=== PATIENT | female | born 1955 | race Caucasian/White ===

== ENCOUNTER → 2019-11-14 04:00 | Outpatient (REF) | payer MEDICAID, SELFPAY ==
[2019-11-14 09:40] LABS: Absolute Lymphocyte Count 1.73 X10^3/uL (0.83-4.51); Absolute Neutrophil Count 5.2 X10^3/uL (2.0-7.7); Basophil# 0.07 X10^3/uL; Basophil% 0.8 % (0-1); Eosinophil# 0.32 X10^3/uL; Eosinophils% 3.9 % (0-5); Erythrocyte Sedimentation Rate 52 mm/hr (0-30); Hematocrit 31.6 % (37-47); Hemoglobin 9.4 g/dL (12.0-15.0); Lymphocyte # 1.73 X10^3/ul (4.0); Lymphocyte % 20.9 % (19-41); Mean Corp Hgb Conc 29.7 g/dL (32-36); Mean Corpuscular Hgb 30.6 pg (27.0-32.0); Mean Corpuscular Volume 102.9 fL (81-99); Mean Platelet Vol. 9.6 fl (6.2-12.0); Monocyte# 0.87 X10^3/uL; Monocyte% 10.5 % (0-10); NRBC Flagged by Analyzer 0 % (0-5); Neutrophil # 5.24 X10^3/uL (2.7-7.7); Neutrophil % 63.5 % (47-70); Platelet Count 376 K/mm3 (150-450); RBC Distribution Width CV 16.2 % (11.6-14.6); RBC Distribution Width SD 60.2 fl (35.1-43.9); Red Blood Count 3.07 M/mm3 (4.2-5.4); White Blood Count 8.3 K/mm3 (4.4-11.0)
[2019-11-14 09:53] LABS: ALB/GLOB Ratio 0.5 RATIO (0.9-2.4); AST(SGOT) 21 U/L (15-37); Alanine Aminotransfer ALT/SGPT 16 U/L (13-56); Albumin, Serum 2.3 g/dL (3.2-5.0); Alkaline Phosphatase 73 U/L (45-117); Anion Gap 9 (5-15); BUN 10 mg/dL (7-18); BUN/Creat Ratio 23.1 RATIO (10-20); Calcium,Total 8.5 mg/dL (8.5-10.1); Chloride 100 mmol/L (98-107); Creatinine, Serum 0.43 mg/dL (0.55-1.02); EST Glomerular Filtration Rate 157 mL/min (>60); Est Glom Filt Rate - Afr Amer 189 mL/min (>60); Glucose 71 mg/dL (74-106); Protein, Total 7.3 g/dL (6.4-8.2); Sodium Level 140 mmol/L (136-145)
== END ==
LOC: OLS.ACW200 04:00
PROVIDERS: Referring Provider Family Medicine; Visit Provider Family Medicine
DX: M00.861 Arthritis due to other bacteria, right knee (principal); A49.01 Methicillin susceptible Staphylococcus aureus infection, unspecified site; G35 Multiple sclerosis; M17.11 Unilateral primary osteoarthritis, right knee; M62.81 Muscle weakness (generalized); R27.9 Unspecified lack of coordination; R26.89 Other abnormalities of gait and mobility; F41.9 Anxiety disorder, unspecified; F32.9 Major depressive disorder, single episode, unspecified; J18.9 Pneumonia, unspecified organism; I10 Essential (primary) hypertension; K21.9 Gastro-esophageal reflux disease without esophagitis; I82.401 Acute embolism and thrombosis of unspecified deep veins of right lower extremity; A49.02 Methicillin resistant Staphylococcus aureus infection, unspecified site; C44.91 Basal cell carcinoma of skin, unspecified; K55.9 Vascular disorder of intestine, unspecified; N39.0 Urinary tract infection, site not specified; M51.06 Intervertebral disc disorders with myelopathy, lumbar region; Z72.0 Tobacco use
CPT/HCPCS: 36415; 80053; 85025; 85652; 86140

== ENCOUNTER → 2019-11-21 04:00 | Outpatient (REF) | payer MEDICAID, SELFPAY ==
[2019-11-21 07:53] LABS: Absolute Lymphocyte Count 1.74 X10^3/uL (0.83-4.51); Absolute Neutrophil Count 5.5 X10^3/uL (2.0-7.7); Basophil# 0.08 X10^3/uL; Eosinophil# 0.21 X10^3/uL; Eosinophils% 2.5 % (0-5); Hematocrit 31.4 % (37-47); Hemoglobin 9.5 g/dL (12.0-15.0); Lymphocyte # 1.74 X10^3/ul (4.0); Lymphocyte % 20.8 % (19-41); Mean Corp Hgb Conc 30.3 g/dL (32-36); Mean Corpuscular Hgb 30.5 pg (27.0-32.0); Mean Platelet Vol. 10.1 fl (6.2-12.0); Monocyte# 0.83 X10^3/uL; Monocyte% 9.9 % (0-10); NRBC Flagged by Analyzer 0 % (0-5); Neutrophil # 5.45 X10^3/uL (2.7-7.7); Neutrophil % 65.3 % (47-70); Platelet Count 322 K/mm3 (150-450); RBC Distribution Width CV 15.3 % (11.6-14.6); Red Blood Count 3.11 M/mm3 (4.2-5.4); White Blood Count 8.4 K/mm3 (4.4-11.0)
[2019-11-21 08:01] LABS: Erythrocyte Sedimentation Rate 64 mm/hr (0-30)
[2019-11-21 08:17] LABS: ALB/GLOB Ratio 0.5 RATIO (0.9-2.4); AST(SGOT) 21 U/L (15-37); Alanine Aminotransfer ALT/SGPT 16 U/L (13-56); Albumin, Serum 2.4 g/dL (3.2-5.0); Alkaline Phosphatase 87 U/L (45-117); Anion Gap 8 (5-15); BUN 20 mg/dL (7-18); BUN/Creat Ratio 38.9 RATIO (10-20); Calcium,Total 8.7 mg/dL (8.5-10.1); Chloride 99 mmol/L (98-107); Creatinine, Serum 0.51 mg/dL (0.55-1.02); EST Glomerular Filtration Rate 128 mL/min (>60); Est Glom Filt Rate - Afr Amer 155 mL/min (>60); Glucose 83 mg/dL (74-106); Potassium 3.2 mmol/L (3.5-5.1); Protein, Total 7.4 g/dL (6.4-8.2); Sodium Level 138 mmol/L (136-145)
== END ==
LOC: OLS.ACW200 04:00
PROVIDERS: Visit Provider Family Medicine
DX: M00.861 Arthritis due to other bacteria, right knee (principal); M25.561 Pain in right knee; G35 Multiple sclerosis; G89.4 Chronic pain syndrome; I10 Essential (primary) hypertension
CPT/HCPCS: 36415; 80053; 85025; 85652; 86140

== ENCOUNTER → 2019-11-28 05:00 | Outpatient (REF) | payer MEDICAID, SELFPAY ==
[2019-11-28 08:24] LABS: Absolute Lymphocyte Count 1.47 X10^3/uL (0.83-4.51); Absolute Neutrophil Count 4.9 X10^3/uL (2.0-7.7); Basophil# 0.04 X10^3/uL; Basophil% 0.5 % (0-1); Eosinophil# 0.31 X10^3/uL; Eosinophils% 4.2 % (0-5); Hematocrit 35.4 % (37-47); Hemoglobin 10.8 g/dL (12.0-15.0); Lymphocyte # 1.47 X10^3/ul (4.0); Lymphocyte % 19.7 % (19-41); Mean Corp Hgb Conc 30.5 g/dL (32-36); Mean Corpuscular Hgb 29.8 pg (27.0-32.0); Mean Corpuscular Volume 97.8 fL (81-99); Mean Platelet Vol. 10.1 fl (6.2-12.0); Monocyte# 0.74 X10^3/uL; Monocyte% 9.9 % (0-10); NRBC Flagged by Analyzer 0 % (0-5); Neutrophil # 4.85 X10^3/uL (2.7-7.7); Platelet Count 354 K/mm3 (150-450); RBC Distribution Width CV 14.7 % (11.6-14.6); RBC Distribution Width SD 53.2 fl (35.1-43.9); Red Blood Count 3.62 M/mm3 (4.2-5.4); White Blood Count 7.5 K/mm3 (4.4-11.0)
[2019-11-28 08:37] LABS: ALB/GLOB Ratio 0.6 RATIO (0.9-2.4); AST(SGOT) 18 U/L (15-37); Alanine Aminotransfer ALT/SGPT 10 U/L (13-56); Albumin, Serum 2.7 g/dL (3.2-5.0); Alkaline Phosphatase 91 U/L (45-117); Anion Gap 8 (5-15); BUN 13 mg/dL (7-18); BUN/Creat Ratio 26.2 RATIO (10-20); Calcium,Total 8.5 mg/dL (8.5-10.1); Chloride 96 mmol/L (98-107); EST Glomerular Filtration Rate 133 mL/min (>60); Est Glom Filt Rate - Afr Amer 162 mL/min (>60); Globulin 4.9 g/dL (2.2-4.2); Glucose 88 mg/dL (74-106); Potassium 3.2 mmol/L (3.5-5.1); Protein, Total 7.6 g/dL (6.4-8.2); Sodium Level 135 mmol/L (136-145)
[2019-11-28 09:28] LABS: Erythrocyte Sedimentation Rate 51 mm/hr (0-30)
== END ==
LOC: OLS.ACW200 05:00
PROVIDERS: Visit Provider Family Medicine
DX: M00.861 Arthritis due to other bacteria, right knee (principal); M25.561 Pain in right knee; G35 Multiple sclerosis; I10 Essential (primary) hypertension
CPT/HCPCS: 36415; 80053; 85025; 85652; 86140

== ENCOUNTER → 2020-02-07 06:30 | Outpatient (REF) | payer MEDICAID, SELFPAY | LOC: OLS.ACW200 06:30 | PROVIDERS: Visit Provider Family Medicine | DX: Z11.59 Encounter for screening for other viral diseases (principal); M00.861 Arthritis due to other bacteria, right knee; M25.561 Pain in right knee; A49.01 Methicillin susceptible Staphylococcus aureus infection, unspecified site; G35 Multiple sclerosis; M17.11 Unilateral primary osteoarthritis, right knee | CPT/HCPCS: 87635; U0003 ==

== ENCOUNTER → 2020-03-16 10:23 | Outpatient (REF) | payer MEDICAID, SELFPAY | LOC: OLS.ACW200 10:23 | PROVIDERS: Visit Provider Family Medicine | DX: Z03.818 Encounter for observation for suspected exposure to other biological agents ruled out (principal) | CPT/HCPCS: 87635; U0003 ==

== ENCOUNTER → 2020-03-22 12:30 | Outpatient (REF) | payer MEDICAID, SELFPAY | LOC: OLS.ACW300 12:30 | PROVIDERS: Referring Provider Family Medicine; Visit Provider Family Medicine | DX: Z03.818 Encounter for observation for suspected exposure to other biological agents ruled out (principal) | CPT/HCPCS: 87635; U0003 ==

== ENCOUNTER → 2020-04-12 16:00 | Outpatient (REF) | payer MEDICAID, SELFPAY | LOC: OLS.ACW300 16:00 | PROVIDERS: Referring Provider Family Medicine; Visit Provider Family Medicine | DX: R30.9 Painful micturition, unspecified (principal); G35 Multiple sclerosis; R54 Age-related physical debility; R62.7 Adult failure to thrive; M62.81 Muscle weakness (generalized); R27.9 Unspecified lack of coordination; R26.89 Other abnormalities of gait and mobility | CPT/HCPCS: 87086; 87088 ==

== ENCOUNTER → 2020-04-27 05:00 | Outpatient (REF) | payer MEDICAID, SELFPAY ==
[2020-04-27 09:43] LABS: Hematocrit 37.5 % (37-47); Hemoglobin 11.7 g/dL (12.0-15.0); Mean Corp Hgb Conc 31.2 g/dL (32-36); Mean Corpuscular Hgb 27.5 pg (27.0-32.0); Mean Corpuscular Volume 88.2 fL (81-99); Mean Platelet Vol. 10.6 fl (6.2-12.0); Platelet Count 280 K/mm3 (150-450); RBC Distribution Width CV 16.6 % (11.6-14.6); RBC Distribution Width SD 53.7 fl (35.1-43.9); Red Blood Count 4.25 M/mm3 (4.2-5.4); White Blood Count 8.4 K/mm3 (4.4-11.0)
[2020-04-27 09:55] LABS: ALB/GLOB Ratio 0.7 RATIO (0.9-2.4); AST(SGOT) 16 U/L (15-37); Alanine Aminotransfer ALT/SGPT 29 U/L (13-56); Alkaline Phosphatase 129 U/L (45-117); Anion Gap 5 (5-15); BUN 18 mg/dL (7-18); Calcium,Total 8.6 mg/dL (8.5-10.1); Chloride 108 mmol/L (98-107); Creatinine, Serum 0.62 mg/dL (0.55-1.02); EST Glomerular Filtration Rate 103 mL/min (>60); Est Glom Filt Rate - Afr Amer 124 mL/min (>60); Globulin 4.5 g/dL (2.2-4.2); Glucose 76 mg/dL (74-106); Potassium 3.6 mmol/L (3.5-5.1); Protein, Total 7.5 g/dL (6.4-8.2); Sodium Level 140 mmol/L (136-145)
== END ==
LOC: OLS.ACW300 05:00
PROVIDERS: Referring Provider Family Medicine; Visit Provider Family Medicine
DX: G35 Multiple sclerosis (principal); R54 Age-related physical debility; R62.7 Adult failure to thrive; M62.81 Muscle weakness (generalized); R27.9 Unspecified lack of coordination; R26.89 Other abnormalities of gait and mobility
CPT/HCPCS: 36415; 80053; 85027

== ENCOUNTER → 2020-05-05 19:00 | Outpatient (REF) | payer MEDICAID, SELFPAY ==
[2020-05-06 08:42] LABS: Color, Urine Straw (Yellow); Glucose, Dipstick Normal (Normal); Ketone-Dipstick Negative (Negative); Leukocyte Esterase-Dipstick 500 /ul (Negative); Nitrite-Dipstick Negative (Negative); Occult Blood-Urine Negative /ul (Negative); Protein-Dipstick 30 mg/dl (Negative); Specific Gravity, Urine 1.025 (1.002-1.030); Urine Bilirubin Dipstick Negative (Negative); Urine Clarity Cloudy (Clear); Urine Urobilinogen Normal (Normal)
== END ==
LOC: OLS.ACW300 19:00
PROVIDERS: Referring Provider Family Medicine; Visit Provider Family Medicine
DX: G35 Multiple sclerosis (principal); R54 Age-related physical debility; R62.7 Adult failure to thrive; M62.81 Muscle weakness (generalized); R27.9 Unspecified lack of coordination; R26.89 Other abnormalities of gait and mobility; R41.9 Unspecified symptoms and signs involving cognitive functions and awareness
CPT/HCPCS: 81002; 87086; 87088

== ENCOUNTER → 2020-05-09 14:05 | Outpatient (REF) | payer MEDICAID, SELFPAY | LOC: OLS.ACW300 14:05 | PROVIDERS: Referring Provider Family Medicine; Visit Provider Family Medicine | DX: Z03.818 Encounter for observation for suspected exposure to other biological agents ruled out (principal) | CPT/HCPCS: 87635; U0003 ==

== ENCOUNTER → 2020-07-01 07:59 | Outpatient (REF) | payer MEDICAID, SELFPAY | LOC: OLS.ACW300 07:59 | PROVIDERS: Referring Provider Family Medicine; Visit Provider Family Medicine | DX: G35 Multiple sclerosis (principal); R54 Age-related physical debility; R62.7 Adult failure to thrive; M62.81 Muscle weakness (generalized); R27.9 Unspecified lack of coordination; R26.89 Other abnormalities of gait and mobility | CPT/HCPCS: 87086; 87088; 87186 ==

== ENCOUNTER → 2020-07-26 05:00 | Outpatient (REF) | payer MEDICAID, SELFPAY ==
[2020-07-26 07:19] LABS: Hematocrit 39.6 % (37-47); Hemoglobin 12.7 g/dL (12.0-15.0); Mean Corp Hgb Conc 32.1 g/dL (32-36); Mean Corpuscular Hgb 30.1 pg (27.0-32.0); Mean Corpuscular Volume 93.8 fL (81-99); Mean Platelet Vol. 10.1 fl (6.2-12.0); Platelet Count 232 K/mm3 (150-450); RBC Distribution Width SD 58.4 fl (35.1-43.9); Red Blood Count 4.22 M/mm3 (4.2-5.4); White Blood Count 7.7 K/mm3 (4.4-11.0)
[2020-07-26 07:42] LABS: ALB/GLOB Ratio 0.8 RATIO (0.9-2.4); AST(SGOT) 19 U/L (15-37); Alanine Aminotransfer ALT/SGPT 24 U/L (13-56); Albumin, Serum 3.3 g/dL (3.2-5.0); Alkaline Phosphatase 85 U/L (45-117); Anion Gap 5 (5-15); BUN 19 mg/dL (7-18); BUN/Creat Ratio 21.9 RATIO (10-20); Calcium,Total 8.7 mg/dL (8.5-10.1); Chloride 108 mmol/L (98-107); Creatinine, Serum 0.87 mg/dL (0.55-1.02); EST Glomerular Filtration Rate 70 mL/min (>60); Est Glom Filt Rate - Afr Amer 85 mL/min (>60); Globulin 4.2 g/dL (2.2-4.2); Glucose 91 mg/dL (74-106); Protein, Total 7.5 g/dL (6.4-8.2); Sodium Level 139 mmol/L (136-145)
== END ==
LOC: OLS.ACW300 05:00
PROVIDERS: Visit Provider Family Medicine
DX: G35 Multiple sclerosis (principal); R54 Age-related physical debility; R62.7 Adult failure to thrive; M62.81 Muscle weakness (generalized); R27.9 Unspecified lack of coordination; R26.89 Other abnormalities of gait and mobility
CPT/HCPCS: 36415; 80053; 85027

== ENCOUNTER → 2020-08-01 17:00 | Outpatient (REF) | payer MEDICAID, SELFPAY ==
[2020-08-02 07:49] LABS: Color, Urine Yellow (Yellow); Glucose, Dipstick Normal (Normal); Ketone-Dipstick Negative (Negative); Leukocyte Esterase-Dipstick 500 /ul (Negative); Nitrite-Dipstick Negative (Negative); Occult Blood-Urine 150 /ul (Negative); Protein-Dipstick 30 mg/dl (Negative); Specific Gravity, Urine 1.015 (1.002-1.030); Urine Bilirubin Dipstick Negative (Negative); Urine Clarity Sl. Cloudy (Clear); Urine Urobilinogen Normal (Normal)
== END ==
LOC: OLS.ACW300 17:00
PROVIDERS: Visit Provider Family Medicine
DX: N39.0 Urinary tract infection, site not specified (principal)
CPT/HCPCS: 81002; 87086; 87088

== ENCOUNTER → 2020-08-09 22:00 | Outpatient (REF) | payer MEDICAID, SELFPAY ==
[2020-08-10 09:36] LABS: Color, Urine Yellow (Yellow); Glucose, Dipstick Normal (Normal); Ketone-Dipstick 5 mg/dl (Negative); Leukocyte Esterase-Dipstick 100 /ul (Negative); Nitrite-Dipstick Negative (Negative); Occult Blood-Urine 10 /ul (Negative); Protein-Dipstick 15 mg/dl (Negative); Urine Bilirubin Dipstick Negative (Negative); Urine Clarity Clear (Clear); Urine Urobilinogen Normal (Normal)
== END ==
LOC: OLS.ACW300 22:00
PROVIDERS: Visit Provider Family Medicine
DX: R30.9 Painful micturition, unspecified (principal)
CPT/HCPCS: 81002; 87077; 87086; 87088

== ENCOUNTER → 2020-08-29 09:40 | Outpatient (REF) | payer MEDICAID, SELFPAY ==
[2020-08-30 07:42] LABS: Color, Urine Yellow (Yellow); Glucose, Dipstick Normal (Normal); Ketone-Dipstick Negative (Negative); Leukocyte Esterase-Dipstick 500 /ul (Negative); Nitrite-Dipstick Negative (Negative); Occult Blood-Urine 50 /ul (Negative); Protein-Dipstick 30 mg/dl (Negative); Urine Bilirubin Dipstick Negative (Negative); Urine Clarity Sl. Cloudy (Clear); Urine Urobilinogen Normal (Normal)
== END ==
LOC: OLS.ACW300 09:40
PROVIDERS: Visit Provider Family Medicine
DX: R30.0 Dysuria (principal); R39.15 Urgency of urination
CPT/HCPCS: 81002; 87077; 87086; 87088

== ENCOUNTER → 2020-12-31 04:00 | Outpatient (REF) | payer MEDICAID, SELFPAY ==
[2020-12-31 13:30] LABS: Absolute Lymphocyte Count 1.67 X10^3/uL (0.83-4.51); Absolute Neutrophil Count 6.7 X10^3/uL (2.0-7.7); Basophil# 0.08 X10^3/uL; Basophil% 0.8 % (0-1); Eosinophil# 0.41 X10^3/uL; Eosinophils% 4.2 % (0-5); Hematocrit 38.4 % (37-47); Hemoglobin 12.2 g/dL (12.0-15.0); Lymphocyte # 1.67 X10^3/ul (0.83-4.51); Lymphocyte % 17.1 % (19-41); Mean Corp Hgb Conc 31.8 g/dL (32-36); Mean Corpuscular Hgb 31.2 pg (27.0-32.0); Mean Corpuscular Volume 98.2 fL (81-99); Monocyte# 0.86 X10^3/uL; Monocyte% 8.8 % (0-10); NRBC Flagged by Analyzer 0 % (0-5); Neutrophil # 6.69 X10^3/uL (2.7-7.7); Neutrophil % 68.7 % (47-70); Platelet Count 362 K/mm3 (150-450); RBC Distribution Width CV 14.8 % (11.6-14.6); RBC Distribution Width SD 53.1 fl (35.1-43.9); Red Blood Count 3.91 M/mm3 (4.2-5.4); White Blood Count 9.8 K/mm3 (4.4-11.0)
[2020-12-31 13:38] LABS: Erythrocyte Sedimentation Rate 54 mm/hr (0-30)
[2020-12-31 14:15] LABS: ALB/GLOB Ratio 0.6 RATIO (0.9-2.4); AST(SGOT) 19 U/L (15-37); Alanine Aminotransfer ALT/SGPT 15 U/L (13-56); Albumin, Serum 2.9 g/dL (3.2-5.0); Alkaline Phosphatase 83 U/L (45-117); Anion Gap 6 (5-15); BUN 11 mg/dL (7-18); BUN/Creat Ratio 16.9 RATIO (10-20); Calcium,Total 8.4 mg/dL (8.5-10.1); Chloride 105 mmol/L (98-107); Creatinine, Serum 0.65 mg/dL (0.55-1.02); EST Glomerular Filtration Rate 97 mL/min (>60); Est Glom Filt Rate - Afr Amer 118 mL/min (>60); Globulin 4.7 g/dL (2.2-4.2); Glucose 137 mg/dL (74-106); Potassium 4.6 mmol/L (3.5-5.1); Protein, Total 7.6 g/dL (6.4-8.2); Sodium Level 137 mmol/L (136-145)
== END ==
LOC: OLS.ACW300 04:00
PROVIDERS: Visit Provider Family Medicine
DX: G35 Multiple sclerosis (principal); R54 Age-related physical debility; R62.7 Adult failure to thrive; M62.81 Muscle weakness (generalized); R27.9 Unspecified lack of coordination; R26.89 Other abnormalities of gait and mobility
CPT/HCPCS: 36415; 80053; 80202; 85025; 85652; 86140

== ENCOUNTER → 2021-01-14 04:00 | Outpatient (REF) | payer MEDICAID, SELFPAY ==
[2021-01-14 13:43] LABS: Absolute Lymphocyte Count 2.34 X10^3/uL (0.83-4.51); Absolute Neutrophil Count 3.3 X10^3/uL (2.0-7.7); Basophil# 0.14 X10^3/uL; Basophil% 1.6 % (0-1); Eosinophil# 1.47 X10^3/uL; Eosinophils% 17.1 % (0-5); Hemoglobin 11.4 g/dL (12.0-15.0); Lymphocyte # 2.34 X10^3/ul (0.83-4.51); Lymphocyte % 27.2 % (19-41); Mean Corp Hgb Conc 31.7 g/dL (32-36); Mean Corpuscular Hgb 31.1 pg (27.0-32.0); Mean Corpuscular Volume 98.1 fL (81-99); Mean Platelet Vol. 10.8 fl (6.2-12.0); Monocyte# 1.15 X10^3/uL; Monocyte% 13.4 % (0-10); NRBC Flagged by Analyzer 0 % (0-5); Neutrophil % 38.5 % (47-70); Platelet Count 258 K/mm3 (150-450); RBC Distribution Width SD 54.5 fl (35.1-43.9); Red Blood Count 3.67 M/mm3 (4.2-5.4); White Blood Count 8.6 K/mm3 (4.4-11.0)
[2021-01-14 13:59] LABS: Erythrocyte Sedimentation Rate 15 mm/hr (0-30)
[2021-01-14 14:10] LABS: ALB/GLOB Ratio 0.6 RATIO (0.9-2.4); AST(SGOT) 19 U/L (15-37); Alanine Aminotransfer ALT/SGPT 12 U/L (13-56); Albumin, Serum 2.7 g/dL (3.2-5.0); Alkaline Phosphatase 88 U/L (45-117); Anion Gap 3 (5-15); BUN 16 mg/dL (7-18); BUN/Creat Ratio 23.6 RATIO (10-20); Calcium,Total 8.4 mg/dL (8.5-10.1); Chloride 108 mmol/L (98-107); Creatinine, Serum 0.68 mg/dL (0.55-1.02); EST Glomerular Filtration Rate 93 mL/min (>60); Est Glom Filt Rate - Afr Amer 112 mL/min (>60); Globulin 4.4 g/dL (2.2-4.2); Glucose 74 mg/dL (74-106); Potassium 4.9 mmol/L (3.5-5.1); Protein, Total 7.1 g/dL (6.4-8.2); Sodium Level 139 mmol/L (136-145); Vancomycin, Trough Level 13.4 ug/mL (5.0-15.0)
== END ==
LOC: OLS.ACW300 04:00
PROVIDERS: Visit Provider Family Medicine
DX: G35 Multiple sclerosis (principal); M00.861 Arthritis due to other bacteria, right knee; R54 Age-related physical debility; R62.7 Adult failure to thrive; M62.81 Muscle weakness (generalized); R27.9 Unspecified lack of coordination
CPT/HCPCS: 36415; 80053; 80202; 85025; 85652; 86140

== ENCOUNTER → 2021-01-21 04:00 | Outpatient (REF) | payer MEDICAID, SELFPAY ==
[2021-01-21 08:16] LABS: ALB/GLOB Ratio 0.6 RATIO (0.9-2.4); AST(SGOT) 18 U/L (15-37); Alanine Aminotransfer ALT/SGPT 15 U/L (13-56); Albumin, Serum 3.1 g/dL (3.2-5.0); Alkaline Phosphatase 86 U/L (45-117); Anion Gap 7 (5-15); BUN 15 mg/dL (7-18); BUN/Creat Ratio 20.8 RATIO (10-20); Calcium,Total 8.7 mg/dL (8.5-10.1); Chloride 104 mmol/L (98-107); Creatinine, Serum 0.72 mg/dL (0.55-1.02); EST Glomerular Filtration Rate 86 mL/min (>60); Est Glom Filt Rate - Afr Amer 104 mL/min (>60); Globulin 5.2 g/dL (2.2-4.2); Glucose 90 mg/dL (74-106); Potassium 4.5 mmol/L (3.5-5.1); Protein, Total 8.3 g/dL (6.4-8.2); Sodium Level 138 mmol/L (136-145)
[2021-01-21 08:19] LABS: Vancomycin, Trough Level 10.3 ug/mL (5.0-15.0)
[2021-01-21 08:21] LABS: Erythrocyte Sedimentation Rate 48 mm/hr (0-30)
[2021-01-21 08:24] LABS: Absolute Lymphocyte Count 2.01 X10^3/uL (0.83-4.51); Absolute Neutrophil Count 4.3 X10^3/uL (2.0-7.7); Basophil# 0.17 X10^3/uL; Eosinophils% 7.1 % (0-5); Hematocrit 39.7 % (37-47); Hemoglobin 12.2 g/dL (12.0-15.0); Lymphocyte # 2.01 X10^3/ul (0.83-4.51); Lymphocyte % 23.9 % (19-41); Mean Corp Hgb Conc 30.7 g/dL (32-36); Mean Corpuscular Hgb 30.5 pg (27.0-32.0); Mean Corpuscular Volume 99.3 fL (81-99); Mean Platelet Vol. 11.4 fl (6.2-12.0); Monocyte# 1.27 X10^3/uL; Monocyte% 15.1 % (0-10); NRBC Flagged by Analyzer 0 % (0-5); Neutrophil # 4.28 X10^3/uL (2.7-7.7); Neutrophil % 51.1 % (47-70); Platelet Count 243 K/mm3 (150-450); RBC Distribution Width CV 14.4 % (11.6-14.6); RBC Distribution Width SD 52.9 fl (35.1-43.9); White Blood Count 8.4 K/mm3 (4.4-11.0)
== END ==
LOC: OLS.ACW300 04:00
PROVIDERS: Visit Provider Family Medicine
DX: G35 Multiple sclerosis (principal); M00.861 Arthritis due to other bacteria, right knee; R54 Age-related physical debility; R62.7 Adult failure to thrive; M62.81 Muscle weakness (generalized); R27.9 Unspecified lack of coordination
CPT/HCPCS: 36415; 80053; 80202; 85025; 85652; 86140

== ENCOUNTER → 2021-01-28 05:00 | Outpatient (REF) | payer MEDICAID, SELFPAY ==
[2021-01-28 08:12] LABS: ALB/GLOB Ratio 0.6 RATIO (0.9-2.4); AST(SGOT) 16 U/L (15-37); Alanine Aminotransfer ALT/SGPT 16 U/L (13-56); Alkaline Phosphatase 71 U/L (45-117); Anion Gap 5 (5-15); BUN 12 mg/dL (7-18); BUN/Creat Ratio 19.5 RATIO (10-20); Calcium,Total 8.3 mg/dL (8.5-10.1); Chloride 106 mmol/L (98-107); Creatinine, Serum 0.62 mg/dL (0.55-1.02); EST Glomerular Filtration Rate 104 mL/min (>60); Est Glom Filt Rate - Afr Amer 126 mL/min (>60); Globulin 4.7 g/dL (2.2-4.2); Glucose 78 mg/dL (74-106); Potassium 4.1 mmol/L (3.5-5.1); Protein, Total 7.7 g/dL (6.4-8.2); Sodium Level 140 mmol/L (136-145)
[2021-01-28 08:28] LABS: Erythrocyte Sedimentation Rate 22 mm/hr (0-30)
[2021-01-28 08:45] LABS: Vancomycin, Trough Level 6.6 ug/mL (5.0-15.0)
[2021-01-28 08:54] LABS: Absolute Lymphocyte Count 1.74 X10^3/uL (0.83-4.51); Absolute Neutrophil Count 5.7 X10^3/uL (2.0-7.7); Basophil# 0.12 X10^3/uL; Basophil% 1.3 % (0-1); Eosinophil# 0.72 X10^3/uL; Hematocrit 41.3 % (37-47); Hemoglobin 12.6 g/dL (12.0-15.0); Lymphocyte # 1.74 X10^3/ul (0.83-4.51); Lymphocyte % 19.3 % (19-41); Mean Corp Hgb Conc 30.5 g/dL (32-36); Mean Corpuscular Hgb 30.1 pg (27.0-32.0); Mean Corpuscular Volume 98.8 fL (81-99); Monocyte# 0.73 X10^3/uL; Monocyte% 8.1 % (0-10); NRBC Flagged by Analyzer 0 % (0-5); Neutrophil # 5.68 X10^3/uL (2.7-7.7); Neutrophil % 62.9 % (47-70); Platelet Count 202 K/mm3 (150-450); RBC Distribution Width CV 14.8 % (11.6-14.6); RBC Distribution Width SD 52.9 fl (35.1-43.9); Red Blood Count 4.18 M/mm3 (4.2-5.4)
== END ==
LOC: OLS.ACW300 05:00
PROVIDERS: Visit Provider Family Medicine
DX: G35 Multiple sclerosis (principal); M00.861 Arthritis due to other bacteria, right knee; R54 Age-related physical debility; R62.7 Adult failure to thrive; M62.81 Muscle weakness (generalized); R27.9 Unspecified lack of coordination
CPT/HCPCS: 36415; 80053; 80202; 85025; 85652; 86140

== ENCOUNTER → 2021-01-28 11:02 | Outpatient (REF) | payer MEDICAID, SELFPAY ==
[2021-01-28 12:52] LABS: Vancomycin, Trough Level 5.8 ug/mL (5.0-15.0)
== END ==
LOC: OLS.ACW300 11:02
PROVIDERS: Visit Provider Family Medicine
DX: G35 Multiple sclerosis (principal); M00.861 Arthritis due to other bacteria, right knee; R54 Age-related physical debility; R62.7 Adult failure to thrive; M62.81 Muscle weakness (generalized); R27.9 Unspecified lack of coordination
CPT/HCPCS: 36415; 80053; 80202; 85025; 85652; 86140

== ENCOUNTER → 2021-02-01 05:00 | Outpatient (REF) | payer MEDICAID, SELFPAY ==
[2021-02-01 08:25] LABS: Vancomycin, Trough Level 5.7 ug/mL (5.0-15.0)
== END ==
LOC: OLS.ACW300 05:00
PROVIDERS: Visit Provider Family Medicine
DX: G35 Multiple sclerosis (principal); M00.861 Arthritis due to other bacteria, right knee; R54 Age-related physical debility; R62.7 Adult failure to thrive; M62.81 Muscle weakness (generalized); R27.9 Unspecified lack of coordination; A49.01 Methicillin susceptible Staphylococcus aureus infection, unspecified site
CPT/HCPCS: 36415; 80202

== ENCOUNTER → 2021-02-05 05:00 | Outpatient (REF) | payer MEDICAID, SELFPAY ==
[2021-02-05 11:25] LABS: Erythrocyte Sedimentation Rate 21 mm/hr (0-30)
[2021-02-05 11:26] LABS: Absolute Lymphocyte Count 1.95 X10^3/uL (0.83-4.51); Absolute Neutrophil Count 4.5 X10^3/uL (2.0-7.7); Basophil# 0.11 X10^3/uL; Basophil% 1.4 % (0-1); Eosinophils% 6.4 % (0-5); Hematocrit 42.1 % (37-47); Hemoglobin 13.1 g/dL (12.0-15.0); Lymphocyte # 1.95 X10^3/ul (0.83-4.51); Mean Corp Hgb Conc 31.1 g/dL (32-36); Mean Corpuscular Hgb 30.6 pg (27.0-32.0); Mean Corpuscular Volume 98.4 fL (81-99); Monocyte# 0.73 X10^3/uL; Monocyte% 9.3 % (0-10); NRBC Flagged by Analyzer 0 % (0-5); Neutrophil # 4.48 X10^3/uL (2.7-7.7); Neutrophil % 57.4 % (47-70); Platelet Count 166 K/mm3 (150-450); RBC Distribution Width CV 14.9 % (11.6-14.6); RBC Distribution Width SD 53.8 fl (35.1-43.9); Red Blood Count 4.28 M/mm3 (4.2-5.4); White Blood Count 7.8 K/mm3 (4.4-11.0)
[2021-02-05 11:41] LABS: ALB/GLOB Ratio 0.5 RATIO (0.9-2.4); AST(SGOT) 21 U/L (15-37); Alanine Aminotransfer ALT/SGPT 24 U/L (13-56); Albumin, Serum 2.7 g/dL (3.2-5.0); Alkaline Phosphatase 77 U/L (45-117); Anion Gap 6 (5-15); BUN 23 mg/dL (7-18); BUN/Creat Ratio 34.3 RATIO (10-20); CRP 7.61 mg/L (0.0-3.0); Calcium,Total 8.7 mg/dL (8.5-10.1); Chloride 107 mmol/L (98-107); Creatinine, Serum 0.67 mg/dL (0.55-1.02); EST Glomerular Filtration Rate 94 mL/min (>60); Est Glom Filt Rate - Afr Amer 114 mL/min (>60); Globulin 5.2 g/dL (2.2-4.2); Glucose 92 mg/dL (74-106); Potassium 4.7 mmol/L (3.5-5.1); Protein, Total 7.9 g/dL (6.4-8.2); Sodium Level 137 mmol/L (136-145)
== END ==
LOC: OLS.ACW300 05:00
PROVIDERS: Visit Provider Family Medicine
DX: G35 Multiple sclerosis (principal); M00.861 Arthritis due to other bacteria, right knee; R54 Age-related physical debility; R62.7 Adult failure to thrive; M62.81 Muscle weakness (generalized); R27.9 Unspecified lack of coordination
CPT/HCPCS: 36415; 80053; 85025; 85652; 86140

== ENCOUNTER → 2021-02-08 05:00 | Outpatient (REF) | payer MEDICAID, SELFPAY ==
[2021-02-08 09:06] LABS: Valproic Acid (Depakene) Level 52 ug/mL (50-100)
[2021-02-08 09:09] LABS: Cholesterol 141 mg/dL (200); High Density Lipoprotein 42 mg/dL; Triglycerides 100 mg/dL; Very Low Density Lipoprotein 20 mg/dL (5-40)
== END ==
LOC: OLS.ACW300 05:00
PROVIDERS: Visit Provider Family Medicine
DX: G35 Multiple sclerosis (principal); M00.861 Arthritis due to other bacteria, right knee; R54 Age-related physical debility; R62.7 Adult failure to thrive; M62.81 Muscle weakness (generalized); R27.9 Unspecified lack of coordination; I10 Essential (primary) hypertension; F32.9 Major depressive disorder, single episode, unspecified
CPT/HCPCS: 36415; 80061; 80164

== ENCOUNTER → 2021-02-12 05:00 | Outpatient (REF) | payer MEDICAID, SELFPAY ==
[2021-02-12 07:28] LABS: Absolute Lymphocyte Count 2.45 X10^3/uL (0.83-4.51); Basophil# 0.07 X10^3/uL; Eosinophil# 0.67 X10^3/uL; Eosinophils% 9.6 % (0-5); Hematocrit 39.3 % (37-47); Lymphocyte # 2.45 X10^3/ul (0.83-4.51); Mean Corp Hgb Conc 30.5 g/dL (32-36); Mean Corpuscular Hgb 30.2 pg (27.0-32.0); Mean Corpuscular Volume 98.7 fL (81-99); Mean Platelet Vol. 11.9 fl (6.2-12.0); Monocyte# 0.84 X10^3/uL; NRBC Flagged by Analyzer 0 % (0-5); Neutrophil # 2.95 X10^3/uL (2.7-7.7); Neutrophil % 42.1 % (47-70); Platelet Count 158 K/mm3 (150-450); RBC Distribution Width CV 14.6 % (11.6-14.6); RBC Distribution Width SD 53.2 fl (35.1-43.9); Red Blood Count 3.98 M/mm3 (4.2-5.4)
[2021-02-12 07:43] LABS: Erythrocyte Sedimentation Rate 13 mm/hr (0-30)
[2021-02-12 07:53] LABS: ALB/GLOB Ratio 0.6 RATIO (0.9-2.4); AST(SGOT) 15 U/L (15-37); Alanine Aminotransfer ALT/SGPT 14 U/L (13-56); Albumin, Serum 2.6 g/dL (3.2-5.0); Alkaline Phosphatase 77 U/L (45-117); Anion Gap 6 (5-15); BUN 28 mg/dL (7-18); CRP 7.01 mg/L (0.0-3.0); Calcium,Total 8.6 mg/dL (8.5-10.1); Chloride 106 mmol/L (98-107); Creatinine, Serum 0.65 mg/dL (0.55-1.02); EST Glomerular Filtration Rate 97 mL/min (>60); Est Glom Filt Rate - Afr Amer 118 mL/min (>60); Globulin 4.5 g/dL (2.2-4.2); Glucose 83 mg/dL (74-106); Protein, Total 7.1 g/dL (6.4-8.2); Sodium Level 141 mmol/L (136-145)
== END ==
LOC: OLS.ACW300 05:00
PROVIDERS: Visit Provider Family Medicine
DX: G35 Multiple sclerosis (principal); M00.861 Arthritis due to other bacteria, right knee; R54 Age-related physical debility; R62.7 Adult failure to thrive; M62.81 Muscle weakness (generalized); R27.9 Unspecified lack of coordination
CPT/HCPCS: 36415; 80053; 85025; 85652; 86140

== ENCOUNTER → 2021-02-19 05:00 | Outpatient (REF) | payer MEDICAID, SELFPAY ==
[2021-02-19 09:51] LABS: Absolute Lymphocyte Count 2.48 X10^3/uL (0.83-4.51); Absolute Neutrophil Count 3.6 X10^3/uL (2.0-7.7); Basophil# 0.09 X10^3/uL; Basophil% 1.2 % (0-1); Eosinophil# 0.43 X10^3/uL; Eosinophils% 5.7 % (0-5); Hematocrit 39.1 % (37-47); Hemoglobin 12.3 g/dL (12.0-15.0); Lymphocyte # 2.48 X10^3/ul (0.83-4.51); Lymphocyte % 33.1 % (19-41); Mean Corp Hgb Conc 31.5 g/dL (32-36); Mean Corpuscular Volume 98.5 fL (81-99); Mean Platelet Vol. 11.2 fl (6.2-12.0); Monocyte# 0.84 X10^3/uL; Monocyte% 11.2 % (0-10); NRBC Flagged by Analyzer 0 % (0-5); Neutrophil # 3.63 X10^3/uL (2.7-7.7); Neutrophil % 48.4 % (47-70); Platelet Count 176 K/mm3 (150-450); RBC Distribution Width CV 14.6 % (11.6-14.6); RBC Distribution Width SD 53.5 fl (35.1-43.9); Red Blood Count 3.97 M/mm3 (4.2-5.4); White Blood Count 7.5 K/mm3 (4.4-11.0)
[2021-02-19 10:01] LABS: Erythrocyte Sedimentation Rate 14 mm/hr (0-30)
[2021-02-19 10:51] LABS: ALB/GLOB Ratio 0.6 RATIO (0.9-2.4); AST(SGOT) 17 U/L (15-37); Alanine Aminotransfer ALT/SGPT 16 U/L (13-56); Albumin, Serum 2.7 g/dL (3.2-5.0); Alkaline Phosphatase 65 U/L (45-117); Anion Gap 8 (5-15); BUN 27 mg/dL (7-18); CRP 8.38 mg/L (0.0-3.0); Calcium,Total 8.6 mg/dL (8.5-10.1); Chloride 107 mmol/L (98-107); Creatinine, Serum 0.66 mg/dL (0.55-1.02); EST Glomerular Filtration Rate 96 mL/min (>60); Est Glom Filt Rate - Afr Amer 116 mL/min (>60); Globulin 4.5 g/dL (2.2-4.2); Glucose 68 mg/dL (74-106); Potassium 3.9 mmol/L (3.5-5.1); Protein, Total 7.2 g/dL (6.4-8.2); Sodium Level 140 mmol/L (136-145)
== END ==
LOC: OLS.ACW300 05:00
PROVIDERS: Visit Provider Family Medicine
DX: G35 Multiple sclerosis (principal); M00.861 Arthritis due to other bacteria, right knee; R54 Age-related physical debility; R62.7 Adult failure to thrive; M62.81 Muscle weakness (generalized); R27.9 Unspecified lack of coordination
CPT/HCPCS: 36415; 80053; 85025; 85652; 86140

== ENCOUNTER → 2021-02-26 05:50 | Outpatient (REF) | payer MEDICAID, SELFPAY ==
[2021-02-26 08:54] LABS: Absolute Lymphocyte Count 2.58 X10^3/uL (0.83-4.51); Absolute Neutrophil Count 5.5 X10^3/uL (2.0-7.7); Basophil# 0.09 X10^3/uL; Basophil% 0.9 % (0-1); Eosinophil# 0.52 X10^3/uL; Eosinophils% 5.4 % (0-5); Hematocrit 36.7 % (37-47); Hemoglobin 11.5 g/dL (12.0-15.0); Lymphocyte # 2.58 X10^3/ul (0.83-4.51); Lymphocyte % 26.8 % (19-41); Mean Corp Hgb Conc 31.3 g/dL (32-36); Mean Corpuscular Hgb 30.8 pg (27.0-32.0); Mean Corpuscular Volume 98.4 fL (81-99); Mean Platelet Vol. 11.6 fl (6.2-12.0); Monocyte# 0.93 X10^3/uL; Monocyte% 9.7 % (0-10); NRBC Flagged by Analyzer 0 % (0-5); Neutrophil # 5.46 X10^3/uL (2.7-7.7); Neutrophil % 56.9 % (47-70); Platelet Count 224 K/mm3 (150-450); RBC Distribution Width CV 14.6 % (11.6-14.6); RBC Distribution Width SD 52.5 fl (35.1-43.9); Red Blood Count 3.73 M/mm3 (4.2-5.4); White Blood Count 9.6 K/mm3 (4.4-11.0)
[2021-02-26 09:00] LABS: Erythrocyte Sedimentation Rate 12 mm/hr (0-30)
[2021-02-26 09:15] LABS: ALB/GLOB Ratio 0.5 RATIO (0.9-2.4); AST(SGOT) 14 U/L (15-37); Alanine Aminotransfer ALT/SGPT 18 U/L (13-56); Albumin, Serum 2.5 g/dL (3.2-5.0); Alkaline Phosphatase 77 U/L (45-117); Anion Gap 9 (5-15); BUN 33 mg/dL (7-18); BUN/Creat Ratio 47.3 RATIO (10-20); CRP 7.37 mg/L (0.0-3.0); Calcium,Total 8.2 mg/dL (8.5-10.1); Chloride 104 mmol/L (98-107); EST Glomerular Filtration Rate 90 mL/min (>60); Est Glom Filt Rate - Afr Amer 109 mL/min (>60); Globulin 4.6 g/dL (2.2-4.2); Glucose 87 mg/dL (74-106); Potassium 4.2 mmol/L (3.5-5.1); Protein, Total 7.1 g/dL (6.4-8.2); Sodium Level 139 mmol/L (136-145)
== END ==
LOC: OLS.ACW300 05:50
PROVIDERS: Visit Provider Family Medicine
DX: G35 Multiple sclerosis (principal); M00.861 Arthritis due to other bacteria, right knee; R54 Age-related physical debility; R62.7 Adult failure to thrive; M62.81 Muscle weakness (generalized); R27.9 Unspecified lack of coordination
CPT/HCPCS: 36415; 80053; 85025; 85652; 86140

== ENCOUNTER → 2021-03-05 05:00 | Outpatient (REF) | payer MEDICAID, SELFPAY ==
[2021-03-05 10:19] LABS: Absolute Lymphocyte Count 2.16 X10^3/uL (0.83-4.51); Absolute Neutrophil Count 4.3 X10^3/uL (2.0-7.7); Basophil# 0.07 X10^3/uL; Basophil% 0.9 % (0-1); Eosinophil# 0.28 X10^3/uL; Eosinophils% 3.7 % (0-5); Hematocrit 39.5 % (37-47); Hemoglobin 12.4 g/dL (12.0-15.0); Lymphocyte # 2.16 X10^3/ul (0.83-4.51); Lymphocyte % 28.3 % (19-41); Mean Corp Hgb Conc 31.4 g/dL (32-36); Mean Corpuscular Hgb 30.8 pg (27.0-32.0); Mean Corpuscular Volume 98.3 fL (81-99); Monocyte# 0.81 X10^3/uL; Monocyte% 10.6 % (0-10); NRBC Flagged by Analyzer 0 % (0-5); Neutrophil # 4.28 X10^3/uL (2.7-7.7); Neutrophil % 56.2 % (47-70); Platelet Count 206 K/mm3 (150-450); RBC Distribution Width CV 14.5 % (11.6-14.6); RBC Distribution Width SD 52.7 fl (35.1-43.9); Red Blood Count 4.02 M/mm3 (4.2-5.4); White Blood Count 7.6 K/mm3 (4.4-11.0)
[2021-03-05 10:26] LABS: Erythrocyte Sedimentation Rate 16 mm/hr (0-30)
[2021-03-05 10:43] LABS: ALB/GLOB Ratio 0.6 RATIO (0.9-2.4); AST(SGOT) 21 U/L (15-37); Alanine Aminotransfer ALT/SGPT 22 U/L (13-56); Albumin, Serum 2.6 g/dL (3.2-5.0); Alkaline Phosphatase 60 U/L (45-117); Anion Gap 8 (5-15); BUN 20 mg/dL (7-18); BUN/Creat Ratio 28.1 RATIO (10-20); CRP 6.81 mg/L (0.0-3.0); Calcium,Total 8.5 mg/dL (8.5-10.1); Chloride 105 mmol/L (98-107); Creatinine, Serum 0.71 mg/dL (0.55-1.02); EST Glomerular Filtration Rate 88 mL/min (>60); Est Glom Filt Rate - Afr Amer 106 mL/min (>60); Globulin 4.5 g/dL (2.2-4.2); Glucose 78 mg/dL (74-106); Protein, Total 7.1 g/dL (6.4-8.2); Sodium Level 141 mmol/L (136-145)
== END ==
LOC: OLS.ACW300 05:00
PROVIDERS: Visit Provider Family Medicine
DX: G35 Multiple sclerosis (principal); M00.861 Arthritis due to other bacteria, right knee; R54 Age-related physical debility; R62.7 Adult failure to thrive; M62.81 Muscle weakness (generalized); R27.9 Unspecified lack of coordination
CPT/HCPCS: 36415; 80053; 85025; 85652; 86140

== ENCOUNTER → 2021-03-12 05:00 | Outpatient (REF) | payer MEDICAID, SELFPAY ==
[2021-03-12 08:21] LABS: Absolute Lymphocyte Count 2.91 X10^3/uL (0.83-4.51); Basophil# 0.07 X10^3/uL; Basophil% 0.9 % (0-1); Eosinophil# 0.23 X10^3/uL; Eosinophils% 2.9 % (0-5); Hematocrit 39.6 % (37-47); Hemoglobin 12.6 g/dL (12.0-15.0); Lymphocyte # 2.91 X10^3/ul (0.83-4.51); Lymphocyte % 36.5 % (19-41); Mean Corp Hgb Conc 31.8 g/dL (32-36); Mean Corpuscular Hgb 30.5 pg (27.0-32.0); Mean Corpuscular Volume 95.9 fL (81-99); Mean Platelet Vol. 10.9 fl (6.2-12.0); Monocyte# 0.72 X10^3/uL; NRBC Flagged by Analyzer 0 % (0-5); Neutrophil # 4.03 X10^3/uL (2.7-7.7); Neutrophil % 50.4 % (47-70); Platelet Count 202 K/mm3 (150-450); RBC Distribution Width CV 14.5 % (11.6-14.6); RBC Distribution Width SD 50.7 fl (35.1-43.9); Red Blood Count 4.13 M/mm3 (4.2-5.4)
[2021-03-12 08:25] LABS: Erythrocyte Sedimentation Rate 15 mm/hr (0-30)
[2021-03-12 08:42] LABS: ALB/GLOB Ratio 0.6 RATIO (0.9-2.4); AST(SGOT) 16 U/L (15-37); Alanine Aminotransfer ALT/SGPT 19 U/L (13-56); Albumin, Serum 2.6 g/dL (3.2-5.0); Alkaline Phosphatase 67 U/L (45-117); Anion Gap 8 (5-15); BUN 21 mg/dL (7-18); CRP 8.31 mg/L (0.0-3.0); Calcium,Total 8.8 mg/dL (8.5-10.1); Chloride 103 mmol/L (98-107); EST Glomerular Filtration Rate 89 mL/min (>60); Est Glom Filt Rate - Afr Amer 108 mL/min (>60); Globulin 4.4 g/dL (2.2-4.2); Glucose 82 mg/dL (74-106); Potassium 4.1 mmol/L (3.5-5.1); Sodium Level 139 mmol/L (136-145)
== END ==
LOC: OLS.ACW300 05:00
PROVIDERS: Visit Provider Family Medicine
DX: G35 Multiple sclerosis (principal); M00.861 Arthritis due to other bacteria, right knee; R54 Age-related physical debility; R62.7 Adult failure to thrive; M62.81 Muscle weakness (generalized); R27.9 Unspecified lack of coordination
CPT/HCPCS: 36415; 80053; 85025; 85652; 86140

== ENCOUNTER → 2021-03-19 05:00 | Outpatient (REF) | payer MEDICAID, SELFPAY ==
[2021-03-19 08:01] LABS: Absolute Lymphocyte Count 2.65 X10^3/uL (0.83-4.51); Basophil# 0.08 X10^3/uL; Basophil% 1.2 % (0-1); Eosinophil# 0.35 X10^3/uL; Eosinophils% 5.2 % (0-5); Hematocrit 39.4 % (37-47); Hemoglobin 12.2 g/dL (12.0-15.0); Lymphocyte # 2.65 X10^3/ul (0.83-4.51); Lymphocyte % 39.1 % (19-41); Mean Corpuscular Hgb 30.3 pg (27.0-32.0); Mean Platelet Vol. 10.7 fl (6.2-12.0); Monocyte# 0.71 X10^3/uL; Monocyte% 10.5 % (0-10); NRBC Flagged by Analyzer 0 % (0-5); Neutrophil # 2.96 X10^3/uL (2.7-7.7); Neutrophil % 43.7 % (47-70); Platelet Count 241 K/mm3 (150-450); RBC Distribution Width CV 14.6 % (11.6-14.6); RBC Distribution Width SD 53.1 fl (35.1-43.9); Red Blood Count 4.02 M/mm3 (4.2-5.4); White Blood Count 6.8 K/mm3 (4.4-11.0)
[2021-03-19 08:14] LABS: Erythrocyte Sedimentation Rate 14 mm/hr (0-30)
[2021-03-19 08:31] LABS: ALB/GLOB Ratio 0.6 RATIO (0.9-2.4); AST(SGOT) 21 U/L (15-37); Alanine Aminotransfer ALT/SGPT 22 U/L (13-56); Albumin, Serum 2.5 g/dL (3.2-5.0); Alkaline Phosphatase 61 U/L (45-117); Anion Gap 8 (5-15); BUN 27 mg/dL (7-18); BUN/Creat Ratio 43.9 RATIO (10-20); CRP 6.99 mg/L (0.0-3.0); Calcium,Total 8.6 mg/dL (8.5-10.1); Chloride 104 mmol/L (98-107); Creatinine, Serum 0.62 mg/dL (0.55-1.02); EST Glomerular Filtration Rate 104 mL/min (>60); Est Glom Filt Rate - Afr Amer 126 mL/min (>60); Globulin 4.5 g/dL (2.2-4.2); Glucose 72 mg/dL (74-106); Potassium 3.9 mmol/L (3.5-5.1); Sodium Level 140 mmol/L (136-145)
== END ==
LOC: OLS.ACW300 05:00
PROVIDERS: Visit Provider Family Medicine
DX: G35 Multiple sclerosis (principal); M00.861 Arthritis due to other bacteria, right knee; R54 Age-related physical debility; R62.7 Adult failure to thrive; M62.81 Muscle weakness (generalized); R27.9 Unspecified lack of coordination
CPT/HCPCS: 36415; 80053; 85025; 85652; 86140

== ENCOUNTER → 2021-03-26 05:00 | Outpatient (REF) | payer MEDICAID, SELFPAY ==
[2021-03-26 08:59] LABS: Absolute Lymphocyte Count 3.16 X10^3/uL (0.83-4.51); Absolute Neutrophil Count 5.4 X10^3/uL (2.0-7.7); Basophil# 0.09 X10^3/uL; Basophil% 0.9 % (0-1); Eosinophil# 0.25 X10^3/uL; Eosinophils% 2.5 % (0-5); Hematocrit 39.3 % (37-47); Hemoglobin 12.4 g/dL (12.0-15.0); Lymphocyte # 3.16 X10^3/ul (0.83-4.51); Lymphocyte % 31.9 % (19-41); Mean Corp Hgb Conc 31.6 g/dL (32-36); Mean Corpuscular Hgb 30.5 pg (27.0-32.0); Mean Corpuscular Volume 96.8 fL (81-99); Mean Platelet Vol. 10.9 fl (6.2-12.0); Monocyte# 0.96 X10^3/uL; Monocyte% 9.7 % (0-10); NRBC Flagged by Analyzer 0 % (0-5); Neutrophil # 5.41 X10^3/uL (2.7-7.7); Neutrophil % 54.7 % (47-70); Platelet Count 261 K/mm3 (150-450); RBC Distribution Width CV 14.9 % (11.6-14.6); RBC Distribution Width SD 53.1 fl (35.1-43.9); Red Blood Count 4.06 M/mm3 (4.2-5.4); White Blood Count 9.9 K/mm3 (4.4-11.0)
[2021-03-26 09:05] LABS: Erythrocyte Sedimentation Rate 9 mm/hr (0-30)
[2021-03-26 09:18] LABS: ALB/GLOB Ratio 0.6 RATIO (0.9-2.4); AST(SGOT) 23 U/L (15-37); Alanine Aminotransfer ALT/SGPT 27 U/L (13-56); Albumin, Serum 2.6 g/dL (3.2-5.0); Alkaline Phosphatase 70 U/L (45-117); Anion Gap 9 (5-15); BUN 33 mg/dL (7-18); BUN/Creat Ratio 49.9 RATIO (10-20); CRP < 2.90 mg/L (0.0-3.0); Calcium,Total 8.6 mg/dL (8.5-10.1); Chloride 107 mmol/L (98-107); Creatinine, Serum 0.66 mg/dL (0.55-1.02); EST Glomerular Filtration Rate 95 mL/min (>60); Est Glom Filt Rate - Afr Amer 115 mL/min (>60); Globulin 4.3 g/dL (2.2-4.2); Glucose 99 mg/dL (74-106); Protein, Total 6.9 g/dL (6.4-8.2); Sodium Level 142 mmol/L (136-145)
== END ==
LOC: OLS.ACW300 05:00
PROVIDERS: Visit Provider Family Medicine
DX: G35 Multiple sclerosis (principal); M00.861 Arthritis due to other bacteria, right knee; R54 Age-related physical debility; R62.7 Adult failure to thrive; M62.81 Muscle weakness (generalized); R27.9 Unspecified lack of coordination
CPT/HCPCS: 36415; 80053; 85025; 85652; 86140

== ENCOUNTER → 2021-03-28 17:30 | Outpatient (REF) | payer MEDICAID, SELFPAY | LOC: OLS.ACW300 17:30 | PROVIDERS: Visit Provider Family Medicine | DX: G35 Multiple sclerosis (principal); M00.861 Arthritis due to other bacteria, right knee; R54 Age-related physical debility; R62.7 Adult failure to thrive; M62.81 Muscle weakness (generalized); R27.9 Unspecified lack of coordination ==

== ENCOUNTER → 2021-04-02 05:00 | Outpatient (REF) | payer MEDICAID, SELFPAY ==
[2021-04-02 08:13] LABS: Absolute Lymphocyte Count 3.26 X10^3/uL (0.83-4.51); Absolute Neutrophil Count 6.2 X10^3/uL (2.0-7.7); Basophil# 0.09 X10^3/uL; Basophil% 0.8 % (0-1); Eosinophil# 0.23 X10^3/uL; Eosinophils% 2.1 % (0-5); Hematocrit 43.2 % (37-47); Hemoglobin 13.7 g/dL (12.0-15.0); Lymphocyte # 3.26 X10^3/ul (0.83-4.51); Lymphocyte % 30.3 % (19-41); Mean Corp Hgb Conc 31.7 g/dL (32-36); Mean Corpuscular Hgb 30.6 pg (27.0-32.0); Mean Corpuscular Volume 96.4 fL (81-99); Monocyte% 9.3 % (0-10); NRBC Flagged by Analyzer 0 % (0-5); Neutrophil # 6.17 X10^3/uL (2.7-7.7); Neutrophil % 57.3 % (47-70); Platelet Count 261 K/mm3 (150-450); RBC Distribution Width CV 14.9 % (11.6-14.6); RBC Distribution Width SD 53.1 fl (35.1-43.9); Red Blood Count 4.48 M/mm3 (4.2-5.4); White Blood Count 10.8 K/mm3 (4.4-11.0)
[2021-04-02 08:24] LABS: Erythrocyte Sedimentation Rate 21 mm/hr (0-30)
[2021-04-02 08:28] LABS: ALB/GLOB Ratio 0.6 RATIO (0.9-2.4); AST(SGOT) 23 U/L (15-37); Alanine Aminotransfer ALT/SGPT 22 U/L (13-56); Alkaline Phosphatase 69 U/L (45-117); Anion Gap 8 (5-15); BUN 26 mg/dL (7-18); BUN/Creat Ratio 31.7 RATIO (10-20); CRP 4.78 mg/L (0.0-3.0); Calcium,Total 9.1 mg/dL (8.5-10.1); Chloride 104 mmol/L (98-107); Creatinine, Serum 0.82 mg/dL (0.55-1.02); EST Glomerular Filtration Rate 74 mL/min (>60); Est Glom Filt Rate - Afr Amer 90 mL/min (>60); Glucose 86 mg/dL (74-106); Potassium 4.6 mmol/L (3.5-5.1); Sodium Level 136 mmol/L (136-145)
== END ==
LOC: OLS.ACW300 05:00
PROVIDERS: Visit Provider Family Medicine
DX: G35 Multiple sclerosis (principal); M00.861 Arthritis due to other bacteria, right knee; R54 Age-related physical debility; R62.7 Adult failure to thrive; M62.81 Muscle weakness (generalized); R27.9 Unspecified lack of coordination
CPT/HCPCS: 36415; 80053; 85025; 85652; 86140

== ENCOUNTER → 2021-04-09 05:00 | Outpatient (REF) | payer MEDICAID, SELFPAY ==
[2021-04-09 08:39] LABS: Erythrocyte Sedimentation Rate 14 mm/hr (0-30)
[2021-04-09 08:41] LABS: Absolute Lymphocyte Count 2.93 X10^3/uL (0.83-4.51); Basophil# 0.06 X10^3/uL; Basophil% 0.7 % (0-1); Eosinophil# 0.26 X10^3/uL; Eosinophils% 3.2 % (0-5); Hematocrit 40.9 % (37-47); Hemoglobin 13.2 g/dL (12.0-15.0); Lymphocyte # 2.93 X10^3/ul (0.83-4.51); Mean Corp Hgb Conc 32.3 g/dL (32-36); Mean Corpuscular Hgb 30.5 pg (27.0-32.0); Mean Corpuscular Volume 94.5 fL (81-99); Mean Platelet Vol. 11.1 fl (6.2-12.0); Monocyte# 0.85 X10^3/uL; Monocyte% 10.5 % (0-10); NRBC Flagged by Analyzer 0 % (0-5); Neutrophil % 49.2 % (47-70); Platelet Count 243 K/mm3 (150-450); RBC Distribution Width CV 14.9 % (11.6-14.6); RBC Distribution Width SD 52.1 fl (35.1-43.9); Red Blood Count 4.33 M/mm3 (4.2-5.4); White Blood Count 8.1 K/mm3 (4.4-11.0)
[2021-04-09 08:47] LABS: ALB/GLOB Ratio 0.6 RATIO (0.9-2.4); AST(SGOT) 20 U/L (15-37); Alanine Aminotransfer ALT/SGPT 23 U/L (13-56); Albumin, Serum 2.8 g/dL (3.2-5.0); Alkaline Phosphatase 63 U/L (45-117); Anion Gap 5 (5-15); BUN 21 mg/dL (7-18); BUN/Creat Ratio 30.5 RATIO (10-20); CRP 3.57 mg/L (0.0-3.0); Calcium,Total 9.3 mg/dL (8.5-10.1); Chloride 105 mmol/L (98-107); Creatinine, Serum 0.69 mg/dL (0.55-1.02); EST Glomerular Filtration Rate 91 mL/min (>60); Est Glom Filt Rate - Afr Amer 110 mL/min (>60); Globulin 4.5 g/dL (2.2-4.2); Glucose 81 mg/dL (74-106); Potassium 4.1 mmol/L (3.5-5.1); Protein, Total 7.3 g/dL (6.4-8.2); Sodium Level 138 mmol/L (136-145)
== END ==
LOC: OLS.ACW300 05:00
PROVIDERS: Visit Provider Family Medicine
DX: G35 Multiple sclerosis (principal); M00.861 Arthritis due to other bacteria, right knee; R54 Age-related physical debility; R62.7 Adult failure to thrive; M62.81 Muscle weakness (generalized); R27.9 Unspecified lack of coordination
CPT/HCPCS: 36415; 80053; 85025; 85652; 86140

== ENCOUNTER → 2021-04-16 05:00 | Outpatient (REF) | payer MEDICAID, SELFPAY ==
[2021-04-16 09:08] LABS: Absolute Neutrophil Count 3.8 X10^3/uL (2.0-7.7); Basophil# 0.07 X10^3/uL; Basophil% 0.9 % (0-1); Eosinophil# 0.23 X10^3/uL; Eosinophils% 3.1 % (0-5); Erythrocyte Sedimentation Rate 13 mm/hr (0-30); Hemoglobin 13.1 g/dL (12.0-15.0); Lymphocyte % 34.8 % (19-41); Mean Corpuscular Hgb 30.2 pg (27.0-32.0); Mean Corpuscular Volume 94.5 fL (81-99); Mean Platelet Vol. 10.7 fl (6.2-12.0); Monocyte# 0.79 X10^3/uL; Monocyte% 10.6 % (0-10); NRBC Flagged by Analyzer 0 % (0-5); Neutrophil # 3.77 X10^3/uL (2.7-7.7); Neutrophil % 50.3 % (47-70); Platelet Count 231 K/mm3 (150-450); RBC Distribution Width CV 14.9 % (11.6-14.6); RBC Distribution Width SD 52.1 fl (35.1-43.9); Red Blood Count 4.34 M/mm3 (4.2-5.4); White Blood Count 7.5 K/mm3 (4.4-11.0)
[2021-04-16 09:22] LABS: ALB/GLOB Ratio 0.6 RATIO (0.9-2.4); AST(SGOT) 26 U/L (15-37); Alanine Aminotransfer ALT/SGPT 23 U/L (13-56); Albumin, Serum 2.7 g/dL (3.2-5.0); Alkaline Phosphatase 63 U/L (45-117); Anion Gap 6 (5-15); BUN 23 mg/dL (7-18); BUN/Creat Ratio 31.3 RATIO (10-20); CRP 3.04 mg/L (0.0-3.0); Calcium,Total 8.6 mg/dL (8.5-10.1); Chloride 106 mmol/L (98-107); Creatinine, Serum 0.73 mg/dL (0.55-1.02); EST Glomerular Filtration Rate 85 mL/min (>60); Est Glom Filt Rate - Afr Amer 102 mL/min (>60); Globulin 4.7 g/dL (2.2-4.2); Glucose 81 mg/dL (74-106); Potassium 4.5 mmol/L (3.5-5.1); Protein, Total 7.4 g/dL (6.4-8.2); Sodium Level 137 mmol/L (136-145)
== END ==
LOC: OLS.ACW300 05:00
PROVIDERS: Visit Provider Family Medicine
DX: G35 Multiple sclerosis (principal); M00.861 Arthritis due to other bacteria, right knee; R54 Age-related physical debility; R62.7 Adult failure to thrive; M62.81 Muscle weakness (generalized); R27.9 Unspecified lack of coordination
CPT/HCPCS: 36415; 80053; 85025; 85652; 86140

== ENCOUNTER → 2021-04-23 05:00 | Outpatient (REF) | payer MEDICAID, SELFPAY ==
[2021-04-23 08:58] LABS: Hematocrit 39.5 % (37-47); Hemoglobin 12.8 g/dL (12.0-15.0); Mean Corp Hgb Conc 32.4 g/dL (32-36); Mean Corpuscular Hgb 30.3 pg (27.0-32.0); Mean Corpuscular Volume 93.6 fL (81-99); Mean Platelet Vol. 10.4 fl (6.2-12.0); Platelet Count 224 K/mm3 (150-450); RBC Distribution Width CV 15.3 % (11.6-14.6); RBC Distribution Width SD 52.1 fl (35.1-43.9); Red Blood Count 4.22 M/mm3 (4.2-5.4); White Blood Count 7.6 K/mm3 (4.4-11.0)
[2021-04-23 09:18] LABS: Erythrocyte Sedimentation Rate 9 mm/hr (0-30)
[2021-04-23 09:23] LABS: ALB/GLOB Ratio 0.6 RATIO (0.9-2.4); AST(SGOT) 22 U/L (15-37); Alanine Aminotransfer ALT/SGPT 20 U/L (13-56); Albumin, Serum 2.7 g/dL (3.2-5.0); Alkaline Phosphatase 59 U/L (45-117); Anion Gap 5 (5-15); BUN 23 mg/dL (7-18); BUN/Creat Ratio 35.2 RATIO (10-20); CRP 3.14 mg/L (0.0-3.0); Calcium,Total 8.7 mg/dL (8.5-10.1); Chloride 106 mmol/L (98-107); Creatinine, Serum 0.65 mg/dL (0.55-1.02); EST Glomerular Filtration Rate 97 mL/min (>60); Est Glom Filt Rate - Afr Amer 117 mL/min (>60); Globulin 4.2 g/dL (2.2-4.2); Glucose 79 mg/dL (74-106); Potassium 4.4 mmol/L (3.5-5.1); Protein, Total 6.9 g/dL (6.4-8.2); Sodium Level 139 mmol/L (136-145)
== END ==
LOC: OLS.ACW300 05:00
PROVIDERS: Visit Provider Family Medicine
DX: G35 Multiple sclerosis (principal); M00.861 Arthritis due to other bacteria, right knee; R54 Age-related physical debility; R62.7 Adult failure to thrive; M62.81 Muscle weakness (generalized); R27.9 Unspecified lack of coordination
CPT/HCPCS: 36415; 80053; 85027; 85652; 86140

== ENCOUNTER → 2021-04-30 05:00 | Outpatient (REF) | payer MEDICAID, SELFPAY ==
[2021-04-30 08:34] LABS: Erythrocyte Sedimentation Rate 9 mm/hr (0-30)
[2021-04-30 08:36] LABS: Absolute Lymphocyte Count 2.63 X10^3/uL (0.83-4.51); Absolute Neutrophil Count 2.4 X10^3/uL (2.0-7.7); Basophil# 0.07 X10^3/uL; Basophil% 1.2 % (0-1); Eosinophil# 0.22 X10^3/uL; Eosinophils% 3.7 % (0-5); Hematocrit 39.6 % (37-47); Hemoglobin 12.6 g/dL (12.0-15.0); Lymphocyte # 2.63 X10^3/ul (0.83-4.51); Lymphocyte % 44.4 % (19-41); Mean Corp Hgb Conc 31.8 g/dL (32-36); Mean Corpuscular Hgb 29.8 pg (27.0-32.0); Mean Corpuscular Volume 93.6 fL (81-99); Mean Platelet Vol. 10.8 fl (6.2-12.0); Monocyte# 0.59 X10^3/uL; NRBC Flagged by Analyzer 0 % (0-5); Neutrophil # 2.39 X10^3/uL (2.7-7.7); Neutrophil % 40.4 % (47-70); Platelet Count 217 K/mm3 (150-450); RBC Distribution Width CV 15.3 % (11.6-14.6); RBC Distribution Width SD 52.4 fl (35.1-43.9); Red Blood Count 4.23 M/mm3 (4.2-5.4); White Blood Count 5.9 K/mm3 (4.4-11.0)
[2021-04-30 08:38] LABS: ALB/GLOB Ratio 0.6 RATIO (0.9-2.4); AST(SGOT) 22 U/L (15-37); Alanine Aminotransfer ALT/SGPT 29 U/L (13-56); Albumin, Serum 2.7 g/dL (3.2-5.0); Alkaline Phosphatase 56 U/L (45-117); Anion Gap 6 (5-15); BUN 24 mg/dL (7-18); BUN/Creat Ratio 35.6 RATIO (10-20); CRP 3.35 mg/L (0.0-3.0); Calcium,Total 8.5 mg/dL (8.5-10.1); Chloride 105 mmol/L (98-107); Creatinine, Serum 0.67 mg/dL (0.55-1.02); EST Glomerular Filtration Rate 93 mL/min (>60); Est Glom Filt Rate - Afr Amer 113 mL/min (>60); Globulin 4.3 g/dL (2.2-4.2); Glucose 78 mg/dL (74-106); Sodium Level 140 mmol/L (136-145)
== END ==
LOC: OLS.ACW300 05:00
PROVIDERS: Visit Provider Family Medicine
DX: G35 Multiple sclerosis (principal); M00.861 Arthritis due to other bacteria, right knee; R54 Age-related physical debility; R62.7 Adult failure to thrive; M62.81 Muscle weakness (generalized); R27.9 Unspecified lack of coordination
CPT/HCPCS: 36415; 80053; 85025; 85652; 86140

== ENCOUNTER 2021-05-07 05:00 | Outpatient (REF) | payer MEDICARE, MEDICAID, SELFPAY ==
[2021-05-07 09:34] LABS: Erythrocyte Sedimentation Rate 6 mm/hr (0-30)
[2021-05-07 09:35] LABS: ALB/GLOB Ratio 0.7 RATIO (0.9-2.4); AST(SGOT) 21 U/L (15-37); Alanine Aminotransfer ALT/SGPT 20 U/L (13-56); Albumin, Serum 2.8 g/dL (3.2-5.0); Alkaline Phosphatase 60 U/L (45-117); Anion Gap 4 (5-15); BUN 16 mg/dL (7-18); BUN/Creat Ratio 22.3 RATIO (10-20); CRP < 2.90 mg/L (0.0-3.0); Calcium,Total 8.6 mg/dL (8.5-10.1); Chloride 103 mmol/L (98-107); Creatinine, Serum 0.72 mg/dL (0.55-1.02); EST Glomerular Filtration Rate 87 mL/min (>60); Est Glom Filt Rate - Afr Amer 105 mL/min (>60); Globulin 4.3 g/dL (2.2-4.2); Glucose 96 mg/dL (74-106); Potassium 4.6 mmol/L (3.5-5.1); Protein, Total 7.1 g/dL (6.4-8.2); Sodium Level 139 mmol/L (136-145)
[2021-05-07 09:36] LABS: Absolute Lymphocyte Count 2.35 X10^3/uL (0.83-4.51); Absolute Neutrophil Count 3.4 X10^3/uL (2.0-7.7); Basophil# 0.08 X10^3/uL; Basophil% 1.1 % (0-1); Eosinophil# 0.22 X10^3/uL; Eosinophils% 3.1 % (0-5); Hematocrit 38.7 % (37-47); Hemoglobin 12.6 g/dL (12.0-15.0); Lymphocyte # 2.35 X10^3/ul (0.83-4.51); Lymphocyte % 33.3 % (19-41); Mean Corp Hgb Conc 32.6 g/dL (32-36); Mean Corpuscular Hgb 30.6 pg (27.0-32.0); Mean Corpuscular Volume 93.9 fL (81-99); Mean Platelet Vol. 10.7 fl (6.2-12.0); Monocyte# 0.98 X10^3/uL; Monocyte% 13.9 % (0-10); NRBC Flagged by Analyzer 0 % (0-5); Neutrophil % 48.3 % (47-70); Platelet Count 225 K/mm3 (150-450); RBC Distribution Width CV 15.4 % (11.6-14.6); RBC Distribution Width SD 52.8 fl (35.1-43.9); Red Blood Count 4.12 M/mm3 (4.2-5.4); White Blood Count 7.1 K/mm3 (4.4-11.0)
== END 2021-05-07 23:59 | disposition home or self-care (01) ==
LOC: OLS.ACW300 05:00
PROVIDERS: Visit Provider Family Medicine
DX: G35 Multiple sclerosis (principal); M00.861 Arthritis due to other bacteria, right knee; R54 Age-related physical debility; R62.7 Adult failure to thrive; M62.81 Muscle weakness (generalized); R27.9 Unspecified lack of coordination
CPT/HCPCS: 36415; 80053; 85025; 85652; 86140

== ENCOUNTER → 2021-05-10 04:00 | Outpatient (REF) | payer MEDICARE, MEDICAID, SELFPAY ==
[2021-05-10 09:43] LABS: Valproic Acid (Depakene) Level 42 ug/mL (50-100)
== END ==
LOC: OLS.ACW300 04:00
PROVIDERS: Referring Provider Family Medicine; Visit Provider Family Medicine
DX: G35 Multiple sclerosis (principal); M00.861 Arthritis due to other bacteria, right knee; R54 Age-related physical debility; R62.7 Adult failure to thrive; M62.81 Muscle weakness (generalized); R27.9 Unspecified lack of coordination
CPT/HCPCS: 36415; 80164

== ENCOUNTER → 2021-05-14 05:00 | Outpatient (REF) | payer MEDICARE, MEDICAID, SELFPAY ==
[2021-05-14 09:21] LABS: Absolute Lymphocyte Count 2.97 X10^3/uL (0.83-4.51); Absolute Neutrophil Count 4.3 X10^3/uL (2.0-7.7); Basophil# 0.09 X10^3/uL; Basophil% 1.1 % (0-1); Eosinophil# 0.21 X10^3/uL; Eosinophils% 2.5 % (0-5); Hemoglobin 12.3 g/dL (12.0-15.0); Lymphocyte # 2.97 X10^3/ul (0.83-4.51); Lymphocyte % 35.3 % (19-41); Mean Corp Hgb Conc 32.4 g/dL (32-36); Mean Corpuscular Hgb 30.8 pg (27.0-32.0); Mean Corpuscular Volume 95.2 fL (81-99); Mean Platelet Vol. 10.9 fl (6.2-12.0); Monocyte# 0.81 X10^3/uL; Monocyte% 9.6 % (0-10); NRBC Flagged by Analyzer 0 % (0-5); Neutrophil # 4.31 X10^3/uL (2.7-7.7); Neutrophil % 51.3 % (47-70); Platelet Count 220 K/mm3 (150-450); RBC Distribution Width CV 15.2 % (11.6-14.6); RBC Distribution Width SD 53.4 fl (35.1-43.9); Red Blood Count 3.99 M/mm3 (4.2-5.4); White Blood Count 8.4 K/mm3 (4.4-11.0)
[2021-05-14 09:33] LABS: Erythrocyte Sedimentation Rate 13 mm/hr (0-30)
[2021-05-14 09:37] LABS: ALB/GLOB Ratio 0.6 RATIO (0.9-2.4); AST(SGOT) 20 U/L (15-37); Alanine Aminotransfer ALT/SGPT 20 U/L (13-56); Albumin, Serum 2.7 g/dL (3.2-5.0); Alkaline Phosphatase 57 U/L (45-117); Anion Gap 6 (5-15); BUN 22 mg/dL (7-18); BUN/Creat Ratio 35.2 RATIO (10-20); CRP < 2.90 mg/L (0.0-3.0); Calcium,Total 8.7 mg/dL (8.5-10.1); Chloride 107 mmol/L (98-107); Creatinine, Serum 0.62 mg/dL (0.55-1.02); EST Glomerular Filtration Rate 102 mL/min (>60); Est Glom Filt Rate - Afr Amer 123 mL/min (>60); Globulin 4.3 g/dL (2.2-4.2); Glucose 79 mg/dL (74-106); Potassium 4.6 mmol/L (3.5-5.1); Sodium Level 139 mmol/L (136-145)
== END ==
LOC: OLS.ACW300 05:00
PROVIDERS: Referring Provider Internal Medicine; Visit Provider Internal Medicine
DX: G35 Multiple sclerosis (principal); R27.9 Unspecified lack of coordination; M00.861 Arthritis due to other bacteria, right knee; R54 Age-related physical debility; R62.7 Adult failure to thrive; M62.81 Muscle weakness (generalized)
CPT/HCPCS: 36415; 80053; 85025; 85652; 86140

== ENCOUNTER → 2021-05-21 04:00 | Outpatient (REF) | payer MEDICARE, MEDICAID, SELFPAY ==
[2021-05-21 08:51] LABS: Erythrocyte Sedimentation Rate 8 mm/hr (0-30)
[2021-05-21 08:52] LABS: Hematocrit 40.5 % (37-47); Hemoglobin 12.9 g/dL (12.0-15.0); Mean Corp Hgb Conc 31.9 g/dL (32-36); Mean Corpuscular Hgb 30.2 pg (27.0-32.0); Mean Corpuscular Volume 94.8 fL (81-99); Mean Platelet Vol. 10.9 fl (6.2-12.0); Platelet Count 215 K/mm3 (150-450); RBC Distribution Width CV 14.9 % (11.6-14.6); RBC Distribution Width SD 51.9 fl (35.1-43.9); Red Blood Count 4.27 M/mm3 (4.2-5.4); White Blood Count 6.5 K/mm3 (4.4-11.0)
[2021-05-21 09:27] LABS: ALB/GLOB Ratio 0.6 RATIO (0.9-2.4); AST(SGOT) 27 U/L (15-37); Alanine Aminotransfer ALT/SGPT 27 U/L (13-56); Albumin, Serum 2.7 g/dL (3.2-5.0); Alkaline Phosphatase 63 U/L (45-117); Anion Gap 6 (5-15); BUN 22 mg/dL (7-18); CRP 3.69 mg/L (0.0-3.0); Calcium,Total 8.8 mg/dL (8.5-10.1); Chloride 104 mmol/L (98-107); Creatinine, Serum 0.65 mg/dL (0.55-1.02); EST Glomerular Filtration Rate 98 mL/min (>60); Est Glom Filt Rate - Afr Amer 118 mL/min (>60); Globulin 4.2 g/dL (2.2-4.2); Glucose 74 mg/dL (74-106); Potassium 4.5 mmol/L (3.5-5.1); Protein, Total 6.9 g/dL (6.4-8.2); Sodium Level 138 mmol/L (136-145)
== END ==
LOC: OLS.ACW300 04:00
PROVIDERS: Visit Provider Family Medicine
DX: G35 Multiple sclerosis (principal); M00.861 Arthritis due to other bacteria, right knee; R54 Age-related physical debility; R62.7 Adult failure to thrive; M62.81 Muscle weakness (generalized); R27.9 Unspecified lack of coordination
CPT/HCPCS: 36415; 80053; 85027; 85652; 86140

== ENCOUNTER → 2021-05-28 04:00 | Outpatient (REF) | payer MEDICARE, MEDICAID, SELFPAY ==
[2021-05-28 07:29] LABS: Absolute Lymphocyte Count 2.83 X10^3/uL (0.83-4.51); Absolute Neutrophil Count 4.9 X10^3/uL (2.0-7.7); Basophil# 0.08 X10^3/uL; Basophil% 0.9 % (0-1); Eosinophil# 0.18 X10^3/uL; Hemoglobin 13.3 g/dL (12.0-15.0); Lymphocyte # 2.83 X10^3/ul (0.83-4.51); Lymphocyte % 31.9 % (19-41); Mean Corp Hgb Conc 33.3 g/dL (32-36); Mean Corpuscular Volume 93.2 fL (81-99); Mean Platelet Vol. 10.6 fl (6.2-12.0); Monocyte# 0.84 X10^3/uL; Monocyte% 9.5 % (0-10); NRBC Flagged by Analyzer 0 % (0-5); Neutrophil % 55.4 % (47-70); Platelet Count 221 K/mm3 (150-450); RBC Distribution Width CV 14.8 % (11.6-14.6); RBC Distribution Width SD 51.4 fl (35.1-43.9); Red Blood Count 4.29 M/mm3 (4.2-5.4); White Blood Count 8.9 K/mm3 (4.4-11.0)
[2021-05-28 08:05] LABS: ALB/GLOB Ratio 0.6 RATIO (0.9-2.4); AST(SGOT) 22 U/L (15-37); Alanine Aminotransfer ALT/SGPT 24 U/L (13-56); Albumin, Serum 2.8 g/dL (3.2-5.0); Alkaline Phosphatase 75 U/L (45-117); Anion Gap 7 (5-15); BUN 24 mg/dL (7-18); BUN/Creat Ratio 36.5 RATIO (10-20); CRP 4.87 mg/L (0.0-3.0); Calcium,Total 8.9 mg/dL (8.5-10.1); Chloride 104 mmol/L (98-107); Creatinine, Serum 0.66 mg/dL (0.55-1.02); EST Glomerular Filtration Rate 96 mL/min (>60); Est Glom Filt Rate - Afr Amer 116 mL/min (>60); Globulin 4.4 g/dL (2.2-4.2); Glucose 85 mg/dL (74-106); Potassium 4.3 mmol/L (3.5-5.1); Protein, Total 7.2 g/dL (6.4-8.2); Sodium Level 137 mmol/L (136-145)
[2021-05-28 08:13] LABS: Erythrocyte Sedimentation Rate 15 mm/hr (0-30)
== END ==
LOC: OLS.ACW300 04:00
PROVIDERS: Visit Provider Family Medicine
DX: G35 Multiple sclerosis (principal); M00.861 Arthritis due to other bacteria, right knee; R54 Age-related physical debility; R62.7 Adult failure to thrive; M62.81 Muscle weakness (generalized); R27.9 Unspecified lack of coordination
CPT/HCPCS: 36415; 80053; 85025; 85652; 86140

== ENCOUNTER 2021-06-04 05:00 | Outpatient (REF) | payer MEDICARE, MEDICAID, SELFPAY ==
[2021-06-04 09:10] LABS: Absolute Lymphocyte Count 3.89 X10^3/uL (0.83-4.51); Absolute Neutrophil Count 4.9 X10^3/uL (2.0-7.7); Basophil# 0.09 X10^3/uL; Basophil% 0.9 % (0-1); Eosinophil# 0.21 X10^3/uL; Eosinophils% 2.1 % (0-5); Hematocrit 42.6 % (37-47); Hemoglobin 13.5 g/dL (12.0-15.0); Lymphocyte # 3.89 X10^3/ul (0.83-4.51); Lymphocyte % 39.6 % (19-41); Mean Corp Hgb Conc 31.7 g/dL (32-36); Mean Corpuscular Hgb 30.3 pg (27.0-32.0); Mean Corpuscular Volume 95.7 fL (81-99); Monocyte# 0.65 X10^3/uL; Monocyte% 6.6 % (0-10); NRBC Flagged by Analyzer 0 % (0-5); Neutrophil # 4.94 X10^3/uL (2.7-7.7); Neutrophil % 50.4 % (47-70); Platelet Count 279 K/mm3 (150-450); RBC Distribution Width CV 14.7 % (11.6-14.6); RBC Distribution Width SD 52.3 fl (35.1-43.9); Red Blood Count 4.45 M/mm3 (4.2-5.4); White Blood Count 9.8 K/mm3 (4.4-11.0)
[2021-06-04 09:18] LABS: Erythrocyte Sedimentation Rate 12 mm/hr (0-30)
[2021-06-04 09:25] LABS: ALB/GLOB Ratio 0.7 RATIO (0.9-2.4); AST(SGOT) 22 U/L (15-37); Alanine Aminotransfer ALT/SGPT 27 U/L (13-56); Albumin, Serum 3.1 g/dL (3.2-5.0); Alkaline Phosphatase 71 U/L (45-117); Anion Gap 9 (5-15); BUN 22 mg/dL (7-18); BUN/Creat Ratio 31.2 RATIO (10-20); CRP 3.79 mg/L (0.0-3.0); Chloride 102 mmol/L (98-107); Creatinine, Serum 0.71 mg/dL (0.55-1.02); EST Glomerular Filtration Rate 88 mL/min (>60); Est Glom Filt Rate - Afr Amer 107 mL/min (>60); Globulin 4.7 g/dL (2.2-4.2); Glucose 97 mg/dL (74-106); Potassium 4.8 mmol/L (3.5-5.1); Protein, Total 7.8 g/dL (6.4-8.2); Sodium Level 138 mmol/L (136-145)
== END 2021-06-04 23:59 | disposition home or self-care (01) ==
LOC: OLS.ACW300 05:00
PROVIDERS: Visit Provider Family Medicine
DX: G35 Multiple sclerosis (principal); M00.861 Arthritis due to other bacteria, right knee; R54 Age-related physical debility; R62.7 Adult failure to thrive; M62.81 Muscle weakness (generalized); R27.9 Unspecified lack of coordination
CPT/HCPCS: 36415; 80053; 85025; 85652; 86140

== ENCOUNTER → 2021-06-11 | Outpatient (REF) | payer MEDICARE, MEDICAID, SELFPAY ==
[2021-06-11 08:53] LABS: Erythrocyte Sedimentation Rate 12 mm/hr (0-30)
[2021-06-11 08:55] LABS: Absolute Lymphocyte Count 2.02 X10^3/uL (0.83-4.51); Absolute Neutrophil Count 4.5 X10^3/uL (2.0-7.7); Basophil# 0.06 X10^3/uL; Basophil% 0.8 % (0-1); Eosinophil# 0.15 X10^3/uL; Hemoglobin 12.9 g/dL (12.0-15.0); Lymphocyte # 2.02 X10^3/ul (0.83-4.51); Lymphocyte % 26.4 % (19-41); Mean Corp Hgb Conc 33.1 g/dL (32-36); Mean Corpuscular Hgb 31.6 pg (27.0-32.0); Mean Corpuscular Volume 95.6 fL (81-99); Mean Platelet Vol. 11.1 fl (6.2-12.0); Monocyte# 0.92 X10^3/uL; NRBC Flagged by Analyzer 0 % (0-5); Neutrophil # 4.46 X10^3/uL (2.7-7.7); Neutrophil % 58.4 % (47-70); Platelet Count 194 K/mm3 (150-450); RBC Distribution Width CV 14.8 % (11.6-14.6); RBC Distribution Width SD 51.7 fl (35.1-43.9); Red Blood Count 4.08 M/mm3 (4.2-5.4); White Blood Count 7.6 K/mm3 (4.4-11.0)
[2021-06-11 09:07] LABS: ALB/GLOB Ratio 0.6 RATIO (0.9-2.4); AST(SGOT) 17 U/L (15-37); Alanine Aminotransfer ALT/SGPT 23 U/L (13-56); Albumin, Serum 2.7 g/dL (3.2-5.0); Alkaline Phosphatase 61 U/L (45-117); Anion Gap 6 (5-15); BUN 18 mg/dL (7-18); BUN/Creat Ratio 28.7 RATIO (10-20); CRP 3.14 mg/L (0.0-3.0); Calcium,Total 8.5 mg/dL (8.5-10.1); Chloride 101 mmol/L (98-107); Creatinine, Serum 0.63 mg/dL (0.55-1.02); EST Glomerular Filtration Rate 101 mL/min (>60); Est Glom Filt Rate - Afr Amer 123 mL/min (>60); Globulin 4.2 g/dL (2.2-4.2); Glucose 84 mg/dL (74-106); Potassium 4.4 mmol/L (3.5-5.1); Protein, Total 6.9 g/dL (6.4-8.2); Sodium Level 137 mmol/L (136-145)
== END | disposition home or self-care (01) ==
LOC: OLS.ACW300 05:00
PROVIDERS: Visit Provider Family Medicine
DX: G35 Multiple sclerosis (principal); M00.861 Arthritis due to other bacteria, right knee; R54 Age-related physical debility; R62.7 Adult failure to thrive; M62.81 Muscle weakness (generalized); R27.9 Unspecified lack of coordination
CPT/HCPCS: 36415; 80053; 85025; 85652; 86140

== ENCOUNTER → 2021-06-18 | Outpatient (REF) | payer MEDICARE, MEDICAID, SELFPAY ==
[2021-06-18 08:59] LABS: Erythrocyte Sedimentation Rate 6 mm/hr (0-30)
[2021-06-18 09:00] LABS: Absolute Lymphocyte Count 2.33 X10^3/uL (0.83-4.51); Absolute Neutrophil Count 4.6 X10^3/uL (2.0-7.7); Basophil# 0.06 X10^3/uL; Basophil% 0.8 % (0-1); Eosinophil# 0.14 X10^3/uL; Eosinophils% 1.8 % (0-5); Hematocrit 41.8 % (37-47); Hemoglobin 13.6 g/dL (12.0-15.0); Lymphocyte # 2.33 X10^3/ul (0.83-4.51); Lymphocyte % 29.6 % (19-41); Mean Corp Hgb Conc 32.5 g/dL (32-36); Mean Corpuscular Hgb 31.2 pg (27.0-32.0); Mean Corpuscular Volume 95.9 fL (81-99); Mean Platelet Vol. 11.1 fl (6.2-12.0); Monocyte# 0.71 X10^3/uL; NRBC Flagged by Analyzer 0 % (0-5); Neutrophil # 4.61 X10^3/uL (2.7-7.7); Neutrophil % 58.4 % (47-70); Platelet Count 195 K/mm3 (150-450); RBC Distribution Width CV 14.4 % (11.6-14.6); RBC Distribution Width SD 51.1 fl (35.1-43.9); Red Blood Count 4.36 M/mm3 (4.2-5.4); White Blood Count 7.9 K/mm3 (4.4-11.0)
[2021-06-18 09:05] LABS: ALB/GLOB Ratio 0.7 RATIO (0.9-2.4); AST(SGOT) 22 U/L (15-37); Alanine Aminotransfer ALT/SGPT 24 U/L (13-56); Albumin, Serum 3.1 g/dL (3.2-5.0); Alkaline Phosphatase 66 U/L (45-117); Anion Gap 7 (5-15); BUN 20 mg/dL (7-18); BUN/Creat Ratio 29.9 RATIO (10-20); Calcium,Total 8.6 mg/dL (8.5-10.1); Chloride 100 mmol/L (98-107); Creatinine, Serum 0.67 mg/dL (0.55-1.02); EST Glomerular Filtration Rate 94 mL/min (>60); Est Glom Filt Rate - Afr Amer 114 mL/min (>60); Globulin 4.3 g/dL (2.2-4.2); Glucose 81 mg/dL (74-106); Potassium 4.5 mmol/L (3.5-5.1); Protein, Total 7.4 g/dL (6.4-8.2); Sodium Level 135 mmol/L (136-145)
== END | disposition home or self-care (01) ==
LOC: OLS.ACW300 05:00
PROVIDERS: Visit Provider Family Medicine
DX: G35 Multiple sclerosis (principal); M00.861 Arthritis due to other bacteria, right knee; R54 Age-related physical debility; R62.7 Adult failure to thrive; M62.81 Muscle weakness (generalized); R27.9 Unspecified lack of coordination
CPT/HCPCS: 36415; 80053; 85025; 85652; 86140

== ENCOUNTER → 2021-06-25 | Outpatient (REF) | payer MEDICARE, MEDICAID, SELFPAY ==
[2021-06-25 08:15] LABS: Erythrocyte Sedimentation Rate 18 mm/hr (0-30)
[2021-06-25 08:17] LABS: Absolute Lymphocyte Count 3.59 X10^3/uL (0.83-4.51); Basophil% 1.2 % (0-1); Eosinophil# 0.17 X10^3/uL; Hematocrit 43.9 % (37-47); Hemoglobin 13.8 g/dL (12.0-15.0); Lymphocyte # 3.59 X10^3/ul (0.83-4.51); Mean Corp Hgb Conc 31.4 g/dL (32-36); Mean Corpuscular Hgb 30.2 pg (27.0-32.0); Mean Corpuscular Volume 96.1 fL (81-99); Mean Platelet Vol. 11.4 fl (6.2-12.0); Monocyte# 0.65 X10^3/uL; Monocyte% 7.6 % (0-10); NRBC Flagged by Analyzer 0 % (0-5); Neutrophil # 4.02 X10^3/uL (2.7-7.7); Platelet Count 244 K/mm3 (150-450); RBC Distribution Width CV 14.4 % (11.6-14.6); RBC Distribution Width SD 51.1 fl (35.1-43.9); Red Blood Count 4.57 M/mm3 (4.2-5.4); White Blood Count 8.6 K/mm3 (4.4-11.0)
[2021-06-25 08:28] LABS: ALB/GLOB Ratio 0.7 RATIO (0.9-2.4); AST(SGOT) 17 U/L (15-37); Alanine Aminotransfer ALT/SGPT 19 U/L (13-56); Albumin, Serum 3.1 g/dL (3.2-5.0); Alkaline Phosphatase 72 U/L (45-117); Anion Gap 7 (5-15); BUN 22 mg/dL (7-18); CRP 8.29 mg/L (0.0-3.0); Chloride 105 mmol/L (98-107); Creatinine, Serum 0.63 mg/dL (0.55-1.02); EST Glomerular Filtration Rate 101 mL/min (>60); Est Glom Filt Rate - Afr Amer 122 mL/min (>60); Globulin 4.3 g/dL (2.2-4.2); Glucose 82 mg/dL (74-106); Potassium 4.7 mmol/L (3.5-5.1); Protein, Total 7.4 g/dL (6.4-8.2); Sodium Level 138 mmol/L (136-145)
== END | disposition home or self-care (01) ==
LOC: OLS.ACW300 05:00
PROVIDERS: Visit Provider Family Medicine
DX: G35 Multiple sclerosis (principal); M00.861 Arthritis due to other bacteria, right knee; R54 Age-related physical debility; R62.7 Adult failure to thrive; M62.81 Muscle weakness (generalized); R27.9 Unspecified lack of coordination
CPT/HCPCS: 36415; 80053; 85025; 85652; 86140

== ENCOUNTER → 2021-07-02 | Outpatient (REF) | payer MEDICARE, MEDICAID, SELFPAY ==
[2021-07-02 09:19] LABS: Erythrocyte Sedimentation Rate 7 mm/hr (0-30)
[2021-07-02 09:21] LABS: Absolute Lymphocyte Count 2.06 X10^3/uL (0.83-4.51); Basophil# 0.06 X10^3/uL; Basophil% 0.7 % (0-1); Eosinophil# 0.14 X10^3/uL; Eosinophils% 1.7 % (0-5); Hematocrit 40.5 % (37-47); Hemoglobin 13.2 g/dL (12.0-15.0); Lymphocyte # 2.06 X10^3/ul (0.83-4.51); Lymphocyte % 24.9 % (19-41); Mean Corp Hgb Conc 32.6 g/dL (32-36); Mean Corpuscular Hgb 32.1 pg (27.0-32.0); Mean Corpuscular Volume 98.5 fL (81-99); Monocyte# 0.94 X10^3/uL; Monocyte% 11.4 % (0-10); NRBC Flagged by Analyzer 0 % (0-5); Neutrophil # 5.02 X10^3/uL (2.7-7.7); Neutrophil % 60.8 % (47-70); Platelet Count 211 K/mm3 (150-450); RBC Distribution Width CV 14.2 % (11.6-14.6); RBC Distribution Width SD 51.7 fl (35.1-43.9); Red Blood Count 4.11 M/mm3 (4.2-5.4); White Blood Count 8.3 K/mm3 (4.4-11.0)
[2021-07-02 09:24] LABS: ALB/GLOB Ratio 0.7 RATIO (0.9-2.4); AST(SGOT) 26 U/L (15-37); Alanine Aminotransfer ALT/SGPT 21 U/L (13-56); Albumin, Serum 2.9 g/dL (3.2-5.0); Alkaline Phosphatase 58 U/L (45-117); Anion Gap 3 (5-15); BUN 21 mg/dL (7-18); BUN/Creat Ratio 31.6 RATIO (10-20); CRP < 2.90 mg/L (0.0-3.0); Calcium,Total 8.4 mg/dL (8.5-10.1); Chloride 103 mmol/L (98-107); Creatinine, Serum 0.66 mg/dL (0.55-1.02); EST Glomerular Filtration Rate 95 mL/min (>60); Est Glom Filt Rate - Afr Amer 115 mL/min (>60); Globulin 4.1 g/dL (2.2-4.2); Glucose 83 mg/dL (74-106); Potassium 4.7 mmol/L (3.5-5.1); Sodium Level 135 mmol/L (136-145)
== END | disposition home or self-care (01) ==
LOC: OLS.ACW300 05:00
PROVIDERS: Visit Provider Family Medicine
DX: G35 Multiple sclerosis (principal); M00.861 Arthritis due to other bacteria, right knee; R54 Age-related physical debility; R62.7 Adult failure to thrive; M62.81 Muscle weakness (generalized); R27.9 Unspecified lack of coordination
CPT/HCPCS: 36415; 80053; 85025; 85652; 86140

== ENCOUNTER → 2021-07-09 | Outpatient (REF) | payer MEDICARE, MEDICAID, SELFPAY ==
[2021-07-09 09:00] LABS: Erythrocyte Sedimentation Rate 6 mm/hr (0-30)
[2021-07-09 09:03] LABS: Absolute Neutrophil Count 3.7 X10^3/uL (2.0-7.7); Basophil# 0.08 X10^3/uL; Basophil% 1.1 % (0-1); Eosinophils% 2.7 % (0-5); Hematocrit 39.9 % (37-47); Hemoglobin 13.3 g/dL (12.0-15.0); Mean Corp Hgb Conc 33.3 g/dL (32-36); Mean Corpuscular Hgb 32.3 pg (27.0-32.0); Mean Corpuscular Volume 96.8 fL (81-99); Mean Platelet Vol. 11.4 fl (6.2-12.0); Monocyte# 0.81 X10^3/uL; Monocyte% 10.9 % (0-10); NRBC Flagged by Analyzer 0 % (0-5); Neutrophil % 49.9 % (47-70); Platelet Count 215 K/mm3 (150-450); RBC Distribution Width CV 14.3 % (11.6-14.6); RBC Distribution Width SD 51.5 fl (35.1-43.9); Red Blood Count 4.12 M/mm3 (4.2-5.4); White Blood Count 7.4 K/mm3 (4.4-11.0)
[2021-07-09 09:20] LABS: ALB/GLOB Ratio 0.7 RATIO (0.9-2.4); AST(SGOT) 20 U/L (15-37); Alanine Aminotransfer ALT/SGPT 19 U/L (13-56); Albumin, Serum 2.8 g/dL (3.2-5.0); Alkaline Phosphatase 63 U/L (45-117); Anion Gap 8 (5-15); BUN 24 mg/dL (7-18); CRP < 2.90 mg/L (0.0-3.0); Calcium,Total 8.6 mg/dL (8.5-10.1); Chloride 103 mmol/L (98-107); Creatinine, Serum 0.73 mg/dL (0.55-1.02); EST Glomerular Filtration Rate 85 mL/min (>60); Est Glom Filt Rate - Afr Amer 103 mL/min (>60); Globulin 4.1 g/dL (2.2-4.2); Glucose 78 mg/dL (74-106); Potassium 4.3 mmol/L (3.5-5.1); Protein, Total 6.9 g/dL (6.4-8.2); Sodium Level 138 mmol/L (136-145)
== END | disposition home or self-care (01) ==
LOC: OLS.ACW300 05:00
PROVIDERS: Visit Provider Family Medicine
DX: G35 Multiple sclerosis (principal); M00.851 Arthritis due to other bacteria, right hip; R54 Age-related physical debility; R62.7 Adult failure to thrive; M62.81 Muscle weakness (generalized); R27.9 Unspecified lack of coordination
CPT/HCPCS: 36415; 80053; 85025; 85652; 86140

== ENCOUNTER → 2021-07-16 | Outpatient (REF) | payer MEDICARE, MEDICAID, SELFPAY ==
[2021-07-16 08:44] LABS: Erythrocyte Sedimentation Rate 9 mm/hr (0-30)
[2021-07-16 08:46] LABS: Absolute Lymphocyte Count 2.58 X10^3/uL (0.83-4.51); Absolute Neutrophil Count 3.9 X10^3/uL (2.0-7.7); Basophil# 0.08 X10^3/uL; Basophil% 1.1 % (0-1); Eosinophil# 0.23 X10^3/uL; Hematocrit 40.9 % (37-47); Hemoglobin 13.2 g/dL (12.0-15.0); Lymphocyte # 2.58 X10^3/ul (0.83-4.51); Lymphocyte % 33.9 % (19-41); Mean Corp Hgb Conc 32.3 g/dL (32-36); Mean Corpuscular Hgb 31.4 pg (27.0-32.0); Mean Corpuscular Volume 97.1 fL (81-99); Mean Platelet Vol. 11.3 fl (6.2-12.0); Monocyte# 0.79 X10^3/uL; Monocyte% 10.4 % (0-10); NRBC Flagged by Analyzer 0 % (0-5); Neutrophil # 3.91 X10^3/uL (2.7-7.7); Neutrophil % 51.3 % (47-70); Platelet Count 193 K/mm3 (150-450); RBC Distribution Width CV 14.2 % (11.6-14.6); RBC Distribution Width SD 50.8 fl (35.1-43.9); Red Blood Count 4.21 M/mm3 (4.2-5.4); White Blood Count 7.6 K/mm3 (4.4-11.0)
[2021-07-16 08:47] LABS: ALB/GLOB Ratio 0.7 RATIO (0.9-2.4); AST(SGOT) 26 U/L (15-37); Alanine Aminotransfer ALT/SGPT 24 U/L (13-56); Albumin, Serum 2.8 g/dL (3.2-5.0); Alkaline Phosphatase 69 U/L (45-117); Anion Gap 4 (5-15); BUN 24 mg/dL (7-18); BUN/Creat Ratio 38.3 RATIO (10-20); CRP 3.15 mg/L (0.0-3.0); Calcium,Total 8.8 mg/dL (8.5-10.1); Chloride 103 mmol/L (98-107); Creatinine, Serum 0.63 mg/dL (0.55-1.02); EST Glomerular Filtration Rate 101 mL/min (>60); Est Glom Filt Rate - Afr Amer 123 mL/min (>60); Glucose 74 mg/dL (74-106); Potassium 4.5 mmol/L (3.5-5.1); Protein, Total 6.8 g/dL (6.4-8.2); Sodium Level 134 mmol/L (136-145)
== END | disposition home or self-care (01) ==
LOC: OLS.ACW300 05:00
PROVIDERS: Visit Provider Family Medicine
DX: G35 Multiple sclerosis (principal); M00.851 Arthritis due to other bacteria, right hip; R54 Age-related physical debility; R62.7 Adult failure to thrive; M62.81 Muscle weakness (generalized); R27.9 Unspecified lack of coordination
CPT/HCPCS: 36415; 80053; 85025; 85652; 86140

== ENCOUNTER → 2021-07-23 | Outpatient (REF) | payer MEDICARE, MEDICAID, SELFPAY ==
[2021-07-23 09:15] LABS: Absolute Lymphocyte Count 2.91 X10^3/uL (0.83-4.51); Absolute Neutrophil Count 4.1 X10^3/uL (2.0-7.7); Basophil# 0.09 X10^3/uL; Basophil% 1.1 % (0-1); Eosinophil# 0.23 X10^3/uL; Eosinophils% 2.8 % (0-5); Hematocrit 40.9 % (37-47); Hemoglobin 13.5 g/dL (12.0-15.0); Lymphocyte # 2.91 X10^3/ul (0.83-4.51); Lymphocyte % 35.9 % (19-41); Mean Corpuscular Hgb 31.5 pg (27.0-32.0); Mean Corpuscular Volume 95.6 fL (81-99); Mean Platelet Vol. 11.2 fl (6.2-12.0); Monocyte# 0.77 X10^3/uL; Monocyte% 9.5 % (0-10); NRBC Flagged by Analyzer 0 % (0-5); Neutrophil # 4.08 X10^3/uL (2.7-7.7); Neutrophil % 50.5 % (47-70); Platelet Count 200 K/mm3 (150-450); RBC Distribution Width CV 14.2 % (11.6-14.6); RBC Distribution Width SD 49.9 fl (35.1-43.9); Red Blood Count 4.28 M/mm3 (4.2-5.4); White Blood Count 8.1 K/mm3 (4.4-11.0)
[2021-07-23 09:26] LABS: Erythrocyte Sedimentation Rate 7 mm/hr (0-30)
[2021-07-23 09:31] LABS: ALB/GLOB Ratio 0.7 RATIO (0.9-2.4); AST(SGOT) 19 U/L (15-37); Alanine Aminotransfer ALT/SGPT 20 U/L (13-56); Albumin, Serum 2.9 g/dL (3.2-5.0); Alkaline Phosphatase 68 U/L (45-117); Anion Gap 6 (5-15); BUN 28 mg/dL (7-18); BUN/Creat Ratio 43.6 RATIO (10-20); CRP 3.68 mg/L (0.0-3.0); Calcium,Total 8.5 mg/dL (8.5-10.1); Chloride 105 mmol/L (98-107); Creatinine, Serum 0.64 mg/dL (0.55-1.02); EST Glomerular Filtration Rate 99 mL/min (>60); Est Glom Filt Rate - Afr Amer 119 mL/min (>60); Globulin 4.1 g/dL (2.2-4.2); Glucose 78 mg/dL (74-106); Potassium 4.3 mmol/L (3.5-5.1); Sodium Level 139 mmol/L (136-145)
== END | disposition home or self-care (01) ==
LOC: OLS.ACW300 05:00
PROVIDERS: Visit Provider Family Medicine
DX: G35 Multiple sclerosis (principal); M00.861 Arthritis due to other bacteria, right knee; R54 Age-related physical debility; R62.7 Adult failure to thrive; M62.82 Rhabdomyolysis; R27.9 Unspecified lack of coordination
CPT/HCPCS: 36415; 80053; 85025; 85652; 86140

== ENCOUNTER → 2021-08-08 | Outpatient (REF) | payer MEDICARE, MEDICAID, SELFPAY ==
[2021-08-08 08:34] LABS: Hematocrit 43.4 % (37-47); Hemoglobin 14.1 g/dL (12.0-15.0); Mean Corp Hgb Conc 32.5 g/dL (32-36); Mean Corpuscular Hgb 31.7 pg (27.0-32.0); Mean Corpuscular Volume 97.5 fL (81-99); Mean Platelet Vol. 11.2 fl (6.2-12.0); Platelet Count 203 K/mm3 (150-450); RBC Distribution Width CV 14.3 % (11.6-14.6); RBC Distribution Width SD 51.3 fl (35.1-43.9); Red Blood Count 4.45 M/mm3 (4.2-5.4); White Blood Count 7.9 K/mm3 (4.4-11.0)
[2021-08-08 08:52] LABS: Valproic Acid (Depakene) Level 36 ug/mL (50-100)
[2021-08-08 08:54] LABS: ALB/GLOB Ratio 0.8 RATIO (0.9-2.4); AST(SGOT) 13 U/L (15-37); Alanine Aminotransfer ALT/SGPT 17 U/L (13-56); Albumin, Serum 3.1 g/dL (3.2-5.0); Alkaline Phosphatase 77 U/L (45-117); Anion Gap 4 (5-15); BUN 24 mg/dL (7-18); BUN/Creat Ratio 34.6 RATIO (10-20); Calcium,Total 8.4 mg/dL (8.5-10.1); Chloride 103 mmol/L (98-107); Cholesterol 149 mg/dL (200); Creatinine, Serum 0.69 mg/dL (0.55-1.02); EST Glomerular Filtration Rate 90 mL/min (>60); Est Glom Filt Rate - Afr Amer 109 mL/min (>60); Globulin 4.1 g/dL (2.2-4.2); Glucose 110 mg/dL (74-106); High Density Lipoprotein 55 mg/dL; Potassium 4.3 mmol/L (3.5-5.1); Protein, Total 7.2 g/dL (6.4-8.2); Sodium Level 138 mmol/L (136-145); Triglycerides 107 mg/dL; Very Low Density Lipoprotein 21 mg/dL (5-40)
== END | disposition home or self-care (01) ==
LOC: OLS.ACW300 04:00
PROVIDERS: Referring Provider Family Medicine; Visit Provider Family Medicine
DX: G35 Multiple sclerosis (principal); M00.861 Arthritis due to other bacteria, right knee; R54 Age-related physical debility; R62.7 Adult failure to thrive; M62.81 Muscle weakness (generalized); R27.9 Unspecified lack of coordination
CPT/HCPCS: 36415; 80053; 80061; 80164; 85027

== ENCOUNTER → 2021-09-09 | Outpatient (REF) | payer MEDICARE, MEDICAID, SELFPAY ==
[2021-09-09 09:02] LABS: Hematocrit 45.2 % (37-47); Hemoglobin 14.4 g/dL (12.0-15.0); Mean Corp Hgb Conc 31.9 g/dL (32-36); Mean Corpuscular Hgb 30.8 pg (27.0-32.0); Mean Corpuscular Volume 96.6 fL (81-99); Mean Platelet Vol. 11.3 fl (6.2-12.0); Platelet Count 215 K/mm3 (150-450); RBC Distribution Width CV 14.4 % (11.6-14.6); RBC Distribution Width SD 51.3 fl (35.1-43.9); Red Blood Count 4.68 M/mm3 (4.2-5.4); White Blood Count 8.4 K/mm3 (4.4-11.0)
[2021-09-09 09:24] LABS: ALB/GLOB Ratio 0.8 RATIO (0.9-2.4); AST(SGOT) 21 U/L (15-37); Alanine Aminotransfer ALT/SGPT 22 U/L (13-56); Albumin, Serum 3.3 g/dL (3.2-5.0); Alkaline Phosphatase 75 U/L (45-117); Anion Gap 6 (5-15); BUN 29 mg/dL (7-18); BUN/Creat Ratio 39.4 RATIO (10-20); Calcium,Total 8.4 mg/dL (8.5-10.1); Chloride 103 mmol/L (98-107); Creatinine, Serum 0.74 mg/dL (0.55-1.02); EST Glomerular Filtration Rate 84 mL/min (>60); Est Glom Filt Rate - Afr Amer 102 mL/min (>60); Globulin 4.4 g/dL (2.2-4.2); Glucose 93 mg/dL (74-106); Potassium 4.4 mmol/L (3.5-5.1); Protein, Total 7.7 g/dL (6.4-8.2); Sodium Level 137 mmol/L (136-145)
== END | disposition home or self-care (01) ==
LOC: OLS.ACW300 04:00
PROVIDERS: Referring Provider Family Medicine; Visit Provider Family Medicine
DX: G35 Multiple sclerosis (principal); M00.861 Arthritis due to other bacteria, right knee; R54 Age-related physical debility; R62.7 Adult failure to thrive; M62.81 Muscle weakness (generalized); R27.9 Unspecified lack of coordination
CPT/HCPCS: 36415; 80053; 85027

== ENCOUNTER → 2021-10-07 | Outpatient (REF) | payer MEDICARE, MEDICAID, SELFPAY ==
[2021-10-07 09:07] LABS: Hematocrit 49.4 % (37-47); Hemoglobin 15.5 g/dL (12.0-15.0); Mean Corp Hgb Conc 31.4 g/dL (32-36); Mean Corpuscular Hgb 31.3 pg (27.0-32.0); Mean Corpuscular Volume 99.6 fL (81-99); Mean Platelet Vol. 11.6 fl (6.2-12.0); Platelet Count 220 K/mm3 (150-450); RBC Distribution Width CV 14.4 % (11.6-14.6); RBC Distribution Width SD 52.7 fl (35.1-43.9); Red Blood Count 4.96 M/mm3 (4.2-5.4); White Blood Count 9.3 K/mm3 (4.4-11.0)
[2021-10-07 09:41] LABS: ALB/GLOB Ratio 0.7 RATIO (0.9-2.4); AST(SGOT) 16 U/L (15-37); Alanine Aminotransfer ALT/SGPT 17 U/L (13-56); Albumin, Serum 3.2 g/dL (3.2-5.0); Alkaline Phosphatase 74 U/L (45-117); Anion Gap 4 (5-15); BUN 32 mg/dL (7-18); BUN/Creat Ratio 43.1 RATIO (10-20); Chloride 108 mmol/L (98-107); Creatinine, Serum 0.74 mg/dL (0.55-1.02); EST Glomerular Filtration Rate 83 mL/min (>60); Est Glom Filt Rate - Afr Amer 101 mL/min (>60); Globulin 4.7 g/dL (2.2-4.2); Glucose 100 mg/dL (74-106); Potassium 4.4 mmol/L (3.5-5.1); Protein, Total 7.9 g/dL (6.4-8.2); Sodium Level 139 mmol/L (136-145)
== END | disposition home or self-care (01) ==
LOC: OLS.ACW300 05:00
PROVIDERS: Referring Provider Family Medicine; Visit Provider Family Medicine
DX: G35 Multiple sclerosis (principal); M00.861 Arthritis due to other bacteria, right knee; R54 Age-related physical debility; R62.7 Adult failure to thrive; M62.81 Muscle weakness (generalized); R27.9 Unspecified lack of coordination
CPT/HCPCS: 36415; 80053; 85027

== ENCOUNTER → 2021-11-08 | Outpatient (REF) | payer MEDICARE, MEDICAID, SELFPAY ==
[2021-11-08 08:55] LABS: Valproic Acid (Depakene) Level 30 ug/mL (50-100)
== END | disposition home or self-care (01) ==
LOC: OLS.ACW300 05:00
PROVIDERS: Visit Provider Family Medicine
DX: G35 Multiple sclerosis (principal); M00.861 Arthritis due to other bacteria, right knee; R54 Age-related physical debility; R62.7 Adult failure to thrive; M62.81 Muscle weakness (generalized); R27.9 Unspecified lack of coordination
CPT/HCPCS: 36415; 80164

== ENCOUNTER → 2021-12-09 05:00 | Outpatient (REF) | payer MEDICARE, MEDICAID, SELFPAY ==
[2021-12-09 08:15] LABS: Hematocrit 49.5 % (37-47); Hemoglobin 15.4 g/dL (12.0-15.0); Mean Corp Hgb Conc 31.1 g/dL (32-36); Mean Corpuscular Hgb 32.1 pg (27.0-32.0); Mean Corpuscular Volume 103.1 fL (81-99); Mean Platelet Vol. 11.3 fl (6.2-12.0); Platelet Count 189 K/mm3 (150-450); RBC Distribution Width CV 14.9 % (11.6-14.6); RBC Distribution Width SD 57.3 fl (35.1-43.9); White Blood Count 7.5 K/mm3 (4.4-11.0)
[2021-12-09 09:55] LABS: ALB/GLOB Ratio 0.8 RATIO (0.9-2.4); AST(SGOT) 25 U/L (15-37); Alanine Aminotransfer ALT/SGPT 21 U/L (13-56); Albumin, Serum 3.4 g/dL (3.2-5.0); Alkaline Phosphatase 76 U/L (45-117); Anion Gap 10 (5-15); BUN 25 mg/dL (7-18); BUN/Creat Ratio 36.1 RATIO (10-20); Calcium,Total 9.4 mg/dL (8.5-10.1); Chloride 101 mmol/L (98-107); Creatinine, Serum 0.69 mg/dL (0.55-1.02); EST Glomerular Filtration Rate 90 mL/min (>60); Est Glom Filt Rate - Afr Amer 109 mL/min (>60); Globulin 4.5 g/dL (2.2-4.2); Glucose 74 mg/dL (74-106); Potassium 4.6 mmol/L (3.5-5.1); Protein, Total 7.9 g/dL (6.4-8.2); Sodium Level 139 mmol/L (136-145)
== END ==
LOC: OLS.ACW300 05:00
PROVIDERS: Visit Provider Family Medicine
DX: G35 Multiple sclerosis (principal); M00.861 Arthritis due to other bacteria, right knee; R62.7 Adult failure to thrive; M62.81 Muscle weakness (generalized)
CPT/HCPCS: 36415; 80053; 85027

== ENCOUNTER → 2021-12-27 | Outpatient (REF) | payer MEDICARE, MEDICAID, SELFPAY ==
[2021-12-27 11:55] LABS: Cholesterol 141 mg/dL (200); High Density Lipoprotein 47 mg/dL; Triglycerides 171 mg/dL; Very Low Density Lipoprotein 34 mg/dL (5-40)
== END ==
LOC: OLS.ACW300 09:30
PROVIDERS: Visit Provider Family Medicine
DX: G35 Multiple sclerosis (principal); M00.861 Arthritis due to other bacteria, right knee; R54 Age-related physical debility; R62.7 Adult failure to thrive; M62.81 Muscle weakness (generalized); R27.9 Unspecified lack of coordination
CPT/HCPCS: 36415; 80061

== ENCOUNTER → 2022-01-06 | Outpatient (REF) | payer MEDICARE, MEDICAID, SELFPAY ==
[2022-01-06 09:50] LABS: Hematocrit 43.4 % (37-47); Mean Corp Hgb Conc 32.3 g/dL (32-36); Mean Corpuscular Hgb 32.1 pg (27.0-32.0); Mean Corpuscular Volume 99.5 fL (81-99); Platelet Count 169 K/mm3 (150-450); RBC Distribution Width CV 14.6 % (11.6-14.6); RBC Distribution Width SD 54.3 fl (35.1-43.9); Red Blood Count 4.36 M/mm3 (4.2-5.4); White Blood Count 7.1 K/mm3 (4.4-11.0)
[2022-01-06 10:35] LABS: ALB/GLOB Ratio 0.7 RATIO (0.9-2.4); AST(SGOT) 16 U/L (15-37); Alanine Aminotransfer ALT/SGPT 18 U/L (13-56); Albumin, Serum 2.7 g/dL (3.2-5.0); Alkaline Phosphatase 61 U/L (45-117); Anion Gap 1 (5-15); BUN 22 mg/dL (7-18); BUN/Creat Ratio 37.6 RATIO (10-20); Calcium,Total 8.3 mg/dL (8.5-10.1); Chloride 105 mmol/L (98-107); Creatinine, Serum 0.58 mg/dL (0.55-1.02); EST Glomerular Filtration Rate 110 mL/min (>60); Est Glom Filt Rate - Afr Amer 133 mL/min (>60); Globulin 3.8 g/dL (2.2-4.2); Glucose 83 mg/dL (74-106); Potassium 3.9 mmol/L (3.5-5.1); Protein, Total 6.5 g/dL (6.4-8.2); Sodium Level 140 mmol/L (136-145)
== END ==
LOC: OLS.ACW300 05:00
PROVIDERS: Visit Provider Family Medicine
DX: G35 Multiple sclerosis (principal); M00.861 Arthritis due to other bacteria, right knee; R54 Age-related physical debility; R62.7 Adult failure to thrive; M62.81 Muscle weakness (generalized); R27.9 Unspecified lack of coordination
CPT/HCPCS: 36415; 80053; 85027

== ENCOUNTER → 2022-02-10 | Outpatient (REF) | payer MEDICARE, MEDICAID, SELFPAY ==
[2022-02-10 08:23] LABS: Hematocrit 44.6 % (37-47); Hemoglobin 14.7 g/dL (12.0-15.0); Mean Corpuscular Volume 100.2 fL (81-99); Mean Platelet Vol. 10.7 fl (6.2-12.0); Platelet Count 169 K/mm3 (150-450); RBC Distribution Width CV 13.9 % (11.6-14.6); RBC Distribution Width SD 51.3 fl (35.1-43.9); Red Blood Count 4.45 M/mm3 (4.2-5.4); White Blood Count 7.5 K/mm3 (4.4-11.0)
[2022-02-10 08:35] LABS: Valproic Acid (Depakene) Level 34 ug/mL (50-100)
[2022-02-10 08:36] LABS: ALB/GLOB Ratio 0.7 RATIO (0.9-2.4); AST(SGOT) 15 U/L (15-37); Alanine Aminotransfer ALT/SGPT 18 U/L (13-56); Albumin, Serum 2.8 g/dL (3.2-5.0); Alkaline Phosphatase 58 U/L (45-117); Anion Gap 5 (5-15); BUN 23 mg/dL (7-18); BUN/Creat Ratio 40.5 RATIO (10-20); Calcium,Total 8.4 mg/dL (8.5-10.1); Chloride 105 mmol/L (98-107); Cholesterol 114 mg/dL (200); Creatinine, Serum 0.57 mg/dL (0.55-1.02); EST Glomerular Filtration Rate 113 mL/min (>60); Est Glom Filt Rate - Afr Amer 137 mL/min (>60); Globulin 3.9 g/dL (2.2-4.2); Glucose 79 mg/dL (74-106); High Density Lipoprotein 50 mg/dL; Potassium 4.1 mmol/L (3.5-5.1); Protein, Total 6.7 g/dL (6.4-8.2); Sodium Level 139 mmol/L (136-145); Triglycerides 94 mg/dL; Very Low Density Lipoprotein 19 mg/dL (5-40)
== END ==
LOC: OLS.ACW300 05:00
PROVIDERS: Visit Provider Family Medicine
DX: G35 Multiple sclerosis (principal); M00.861 Arthritis due to other bacteria, right knee; R54 Age-related physical debility; R62.7 Adult failure to thrive; M62.81 Muscle weakness (generalized); R27.9 Unspecified lack of coordination
CPT/HCPCS: 36415; 80053; 80061; 80164; 85027

== ENCOUNTER → 2022-03-10 | Outpatient (REF) | payer MEDICARE, MEDICAID, SELFPAY ==
[2022-03-10 09:52] LABS: Hematocrit 43.6 % (37-47); Hemoglobin 14.2 g/dL (12.0-15.0); Mean Corp Hgb Conc 32.6 g/dL (32-36); Mean Corpuscular Hgb 32.1 pg (27.0-32.0); Mean Corpuscular Volume 98.4 fL (81-99); Mean Platelet Vol. 11.6 fl (6.2-12.0); Platelet Count 163 K/mm3 (150-450); RBC Distribution Width CV 13.8 % (11.6-14.6); RBC Distribution Width SD 50.4 fl (35.1-43.9); Red Blood Count 4.43 M/mm3 (4.2-5.4); White Blood Count 7.6 K/mm3 (4.4-11.0)
[2022-03-10 10:22] LABS: ALB/GLOB Ratio 0.8 RATIO (0.9-2.4); AST(SGOT) 15 U/L (15-37); Alanine Aminotransfer ALT/SGPT 20 U/L (13-56); Alkaline Phosphatase 67 U/L (45-117); Anion Gap 7 (5-15); BUN 24 mg/dL (7-18); BUN/Creat Ratio 39.6 RATIO (10-20); Chloride 109 mmol/L (98-107); Creatinine, Serum 0.61 mg/dL (0.55-1.02); EST Glomerular Filtration Rate 105 mL/min (>60); Est Glom Filt Rate - Afr Amer 127 mL/min (>60); Globulin 3.9 g/dL (2.2-4.2); Glucose 83 mg/dL (74-106); Potassium 4.2 mmol/L (3.5-5.1); Protein, Total 6.9 g/dL (6.4-8.2); Sodium Level 143 mmol/L (136-145)
== END ==
LOC: OLS.ACW300 05:00
PROVIDERS: Visit Provider Family Medicine
DX: G35 Multiple sclerosis (principal); M00.861 Arthritis due to other bacteria, right knee; R54 Age-related physical debility; R62.7 Adult failure to thrive; M62.81 Muscle weakness (generalized); R27.9 Unspecified lack of coordination
CPT/HCPCS: 36415; 80053; 85027

== ENCOUNTER → 2022-04-14 | Outpatient (REF) | payer MEDICARE, MEDICAID, SELFPAY ==
[2022-04-14 07:57] LABS: Hematocrit 39.8 % (37-47); Hemoglobin 12.8 g/dL (12.0-15.0); Mean Corp Hgb Conc 32.2 g/dL (32-36); Mean Corpuscular Volume 99.5 fL (81-99); Mean Platelet Vol. 10.9 fl (6.2-12.0); Platelet Count 162 K/mm3 (150-450); RBC Distribution Width CV 14.4 % (11.6-14.6); RBC Distribution Width SD 52.8 fl (35.1-43.9); White Blood Count 7.8 K/mm3 (4.4-11.0)
[2022-04-14 08:28] LABS: ALB/GLOB Ratio 0.7 RATIO (0.9-2.4); AST(SGOT) 18 U/L (15-37); Alanine Aminotransfer ALT/SGPT 18 U/L (13-56); Albumin, Serum 2.7 g/dL (3.2-5.0); Alkaline Phosphatase 75 U/L (45-117); Anion Gap 7 (5-15); BUN 24 mg/dL (7-18); BUN/Creat Ratio 36.9 RATIO (10-20); Calcium,Total 8.2 mg/dL (8.5-10.1); Chloride 106 mmol/L (98-107); Creatinine, Serum 0.65 mg/dL (0.55-1.02); EST Glomerular Filtration Rate 97 mL/min (>60); Est Glom Filt Rate - Afr Amer 117 mL/min (>60); Globulin 3.9 g/dL (2.2-4.2); Glucose 85 mg/dL (74-106); Potassium 4.2 mmol/L (3.5-5.1); Protein, Total 6.6 g/dL (6.4-8.2); Sodium Level 141 mmol/L (136-145)
== END ==
LOC: OLS.ACW300 05:00
PROVIDERS: Referring Provider Family Medicine; Visit Provider Family Medicine
DX: G35 Multiple sclerosis (principal); M00.861 Arthritis due to other bacteria, right knee; R62.7 Adult failure to thrive; M62.81 Muscle weakness (generalized); R27.9 Unspecified lack of coordination
CPT/HCPCS: 36415; 80053; 85027

== ENCOUNTER → 2022-05-01 | Outpatient (REF) | payer MEDICARE, MEDICAID, SELFPAY ==
[2022-05-01 10:27] LABS: Thyroid Stim Hormone (TSH) 3.11 uIU/mL (0.358-3.74)
== END ==
LOC: OLS.ACW300 07:10
PROVIDERS: Visit Provider Internal Medicine
DX: G35 Multiple sclerosis (principal); M00.861 Arthritis due to other bacteria, right knee; R62.7 Adult failure to thrive; M62.81 Muscle weakness (generalized); R27.9 Unspecified lack of coordination
CPT/HCPCS: 36415; 84443

== ENCOUNTER → 2022-05-10 | Outpatient (REF) | payer MEDICARE, MEDICAID, SELFPAY ==
[2022-05-10 11:17] LABS: Valproic Acid (Depakene) Level < 3 ug/mL (50-100)
[2022-05-12 05:11] LABS: Hematocrit 43.8 % (37-47); Hemoglobin 14.3 g/dL (12.0-15.0); Mean Corp Hgb Conc 32.6 g/dL (32-36); Mean Corpuscular Hgb 32.6 pg (27.0-32.0); Mean Corpuscular Volume 99.8 fL (81-99); Mean Platelet Vol. 11.5 fl (6.2-12.0); Platelet Count 147 K/mm3 (150-450); RBC Distribution Width CV 14.5 % (11.6-14.6); RBC Distribution Width SD 53.1 fl (35.1-43.9); Red Blood Count 4.39 M/mm3 (4.2-5.4); White Blood Count 4.3 K/mm3 (4.4-11.0)
[2022-05-12 05:22] LABS: ALB/GLOB Ratio 0.9 RATIO (0.9-2.4); AST(SGOT) 18 U/L (15-37); Alanine Aminotransfer ALT/SGPT 16 U/L (13-56); Alkaline Phosphatase 73 U/L (45-117); Anion Gap 5 (5-15); BUN 21 mg/dL (7-18); BUN/Creat Ratio 29.5 RATIO (10-20); Calcium,Total 8.4 mg/dL (8.5-10.1); Chloride 107 mmol/L (98-107); Creatinine, Serum 0.71 mg/dL (0.55-1.02); EST Glomerular Filtration Rate 87 mL/min (>60); Est Glom Filt Rate - Afr Amer 106 mL/min (>60); Globulin 3.2 g/dL (2.2-4.2); Glucose 96 mg/dL (74-106); Potassium 3.9 mmol/L (3.5-5.1); Protein, Total 6.2 g/dL (6.4-8.2); Sodium Level 142 mmol/L (136-145)
== END ==
LOC: OLS.ACW300 09:40
PROVIDERS: Referring Provider Family Medicine; Visit Provider Family Medicine
DX: G35 Multiple sclerosis (principal); M00.861 Arthritis due to other bacteria, right knee; R62.7 Adult failure to thrive; M62.81 Muscle weakness (generalized); R27.9 Unspecified lack of coordination
CPT/HCPCS: 36415; 80053; 80164; 85027

== ENCOUNTER → 2022-05-15 | Outpatient (REF) | payer MEDICARE, MEDICAID, SELFPAY | LOC: OLS.ACW300 05:00 | PROVIDERS: Visit Provider Family Medicine | DX: G35 Multiple sclerosis (principal); E55.9 Vitamin D deficiency, unspecified; F32.A Depression, unspecified; M00.861 Arthritis due to other bacteria, right knee; R62.7 Adult failure to thrive; M62.81 Muscle weakness (generalized); R27.9 Unspecified lack of coordination | CPT/HCPCS: 36415; 82306 ==

== ENCOUNTER → 2022-05-22 | Outpatient (REF) | payer MEDICARE, MEDICAID, SELFPAY ==
[2022-05-22 09:25] LABS: Hematocrit 47.6 % (37-47); Hemoglobin 14.7 g/dL (12.0-15.0); Mean Corp Hgb Conc 30.9 g/dL (32-36); Mean Corpuscular Hgb 31.7 pg (27.0-32.0); Mean Corpuscular Volume 102.8 fL (81-99); Mean Platelet Vol. 11.7 fl (6.2-12.0); Platelet Count 179 K/mm3 (150-450); RBC Distribution Width CV 14.8 % (11.6-14.6); RBC Distribution Width SD 57.1 fl (35.1-43.9); Red Blood Count 4.63 M/mm3 (4.2-5.4); White Blood Count 7.6 K/mm3 (4.4-11.0)
[2022-05-22 10:10] LABS: Erythrocyte Sedimentation Rate 7 mm/hr (0-30)
== END ==
LOC: OLS.ACW300 05:00
PROVIDERS: Visit Provider Family Medicine
DX: M25.562 Pain in left knee (principal); G35 Multiple sclerosis; M00.861 Arthritis due to other bacteria, right knee; R54 Age-related physical debility; R62.7 Adult failure to thrive; M62.81 Muscle weakness (generalized); R27.9 Unspecified lack of coordination
CPT/HCPCS: 36415; 85027; 85652; 86140

== ENCOUNTER → 2022-06-09 | Outpatient (REF) | payer MEDICARE, MEDICAID, SELFPAY ==
[2022-06-09 10:16] LABS: Hematocrit 44.6 % (37-47); Hemoglobin 14.4 g/dL (12.0-15.0); Mean Corp Hgb Conc 32.3 g/dL (32-36); Mean Corpuscular Volume 102.3 fL (81-99); Mean Platelet Vol. 11.1 fl (6.2-12.0); Platelet Count 183 K/mm3 (150-450); RBC Distribution Width CV 14.9 % (11.6-14.6); RBC Distribution Width SD 56.1 fl (35.1-43.9); Red Blood Count 4.36 M/mm3 (4.2-5.4); White Blood Count 6.4 K/mm3 (4.4-11.0)
[2022-06-09 10:47] LABS: ALB/GLOB Ratio 0.8 RATIO (0.9-2.4); AST(SGOT) 13 U/L (15-37); Alanine Aminotransfer ALT/SGPT 14 U/L (13-56); Albumin, Serum 2.8 g/dL (3.2-5.0); Alkaline Phosphatase 67 U/L (45-117); Anion Gap 8 (5-15); BUN 22 mg/dL (7-18); Calcium,Total 8.6 mg/dL (8.5-10.1); Chloride 106 mmol/L (98-107); Creatinine, Serum 0.71 mg/dL (0.55-1.02); EST Glomerular Filtration Rate 88 mL/min (>60); Est Glom Filt Rate - Afr Amer 106 mL/min (>60); Globulin 3.7 g/dL (2.2-4.2); Glucose 90 mg/dL (74-106); Potassium 4.1 mmol/L (3.5-5.1); Protein, Total 6.5 g/dL (6.4-8.2); Sodium Level 143 mmol/L (136-145)
== END ==
LOC: OLS.ACW300 04:00
PROVIDERS: Referring Provider Family Medicine; Visit Provider Family Medicine
DX: G35 Multiple sclerosis (principal); M00.861 Arthritis due to other bacteria, right knee; R54 Age-related physical debility; R62.7 Adult failure to thrive; M62.81 Muscle weakness (generalized); R27.9 Unspecified lack of coordination
CPT/HCPCS: 36415; 80053; 85027

== ENCOUNTER → 2022-07-14 | Outpatient (REF) | payer MEDICARE, MEDICAID, SELFPAY ==
[2022-07-14 08:27] LABS: Hematocrit 45.8 % (37-47); Hemoglobin 14.1 g/dL (12.0-15.0); Mean Corp Hgb Conc 30.8 g/dL (32-36); Mean Corpuscular Hgb 31.5 pg (27.0-32.0); Mean Corpuscular Volume 102.2 fL (81-99); Mean Platelet Vol. 11.5 fl (6.2-12.0); Platelet Count 186 K/mm3 (150-450); RBC Distribution Width CV 14.5 % (11.6-14.6); RBC Distribution Width SD 54.3 fl (35.1-43.9); Red Blood Count 4.48 M/mm3 (4.2-5.4); White Blood Count 7.2 K/mm3 (4.4-11.0)
[2022-07-14 08:37] LABS: ALB/GLOB Ratio 0.7 RATIO (0.9-2.4); AST(SGOT) 17 U/L (15-37); Alanine Aminotransfer ALT/SGPT 16 U/L (13-56); Albumin, Serum 2.8 g/dL (3.2-5.0); Alkaline Phosphatase 84 U/L (45-117); Anion Gap 2 (5-15); BUN 29 mg/dL (7-18); BUN/Creat Ratio 38.6 RATIO (10-20); Calcium,Total 8.8 mg/dL (8.5-10.1); Chloride 109 mmol/L (98-107); Creatinine, Serum 0.75 mg/dL (0.55-1.02); EST Glomerular Filtration Rate 82 mL/min (>60); Est Glom Filt Rate - Afr Amer 99 mL/min (>60); Globulin 3.9 g/dL (2.2-4.2); Glucose 90 mg/dL (74-106); Potassium 4.4 mmol/L (3.5-5.1); Protein, Total 6.7 g/dL (6.4-8.2); Sodium Level 143 mmol/L (136-145)
== END ==
LOC: OLS.ACW300 05:00
PROVIDERS: Visit Provider Family Medicine
DX: G35 Multiple sclerosis (principal); M00.861 Arthritis due to other bacteria, right knee; R54 Age-related physical debility; R27.9 Unspecified lack of coordination; Z79.899 Other long term (current) drug therapy
CPT/HCPCS: 36415; 80053; 85027

== ENCOUNTER → 2022-08-08 | Outpatient (REF) | payer MEDICARE, MEDICAID, SELFPAY ==
[2022-08-08 08:21] LABS: Cholesterol 142 mg/dL (200); High Density Lipoprotein 60 mg/dL; Triglycerides 145 mg/dL; Very Low Density Lipoprotein 29 mg/dL (5-40)
== END ==
LOC: OLS.ACW300 05:00
PROVIDERS: Visit Provider Family Medicine
DX: G35 Multiple sclerosis (principal); M00.861 Arthritis due to other bacteria, right knee; M62.81 Muscle weakness (generalized); R27.9 Unspecified lack of coordination; R62.7 Adult failure to thrive; R54 Age-related physical debility
CPT/HCPCS: 36415; 80061

== ENCOUNTER → 2022-08-11 | Outpatient (REF) | payer MEDICARE, MEDICAID, SELFPAY ==
[2022-08-11 08:48] LABS: Hematocrit 46.6 % (37-47); Hemoglobin 14.6 g/dL (12.0-15.0); Mean Corp Hgb Conc 31.3 g/dL (32-36); Mean Corpuscular Hgb 31.9 pg (27.0-32.0); Mean Platelet Vol. 11.5 fl (6.2-12.0); Platelet Count 193 K/mm3 (150-450); RBC Distribution Width CV 14.6 % (11.6-14.6); RBC Distribution Width SD 55.5 fl (35.1-43.9); Red Blood Count 4.57 M/mm3 (4.2-5.4); White Blood Count 7.5 K/mm3 (4.4-11.0)
[2022-08-11 09:06] LABS: ALB/GLOB Ratio 0.8 RATIO (0.9-2.4); AST(SGOT) 25 U/L (15-37); Alanine Aminotransfer ALT/SGPT 18 U/L (13-56); Albumin, Serum 3.1 g/dL (3.2-5.0); Alkaline Phosphatase 74 U/L (45-117); Anion Gap 8 (5-15); BUN 32 mg/dL (7-18); BUN/Creat Ratio 34.3 RATIO (10-20); Calcium,Total 8.7 mg/dL (8.5-10.1); Chloride 104 mmol/L (98-107); Creatinine, Serum 0.93 mg/dL (0.55-1.02); EST Glomerular Filtration Rate 64 mL/min (>60); Est Glom Filt Rate - Afr Amer 77 mL/min (>60); Globulin 3.8 g/dL (2.2-4.2); Glucose 79 mg/dL (74-106); Potassium 4.5 mmol/L (3.5-5.1); Protein, Total 6.9 g/dL (6.4-8.2); Sodium Level 138 mmol/L (136-145)
== END ==
LOC: OLS.ACW300 04:00
PROVIDERS: Referring Provider Family Medicine; Visit Provider Family Medicine
DX: G35 Multiple sclerosis (principal); M00.861 Arthritis due to other bacteria, right knee; R62.7 Adult failure to thrive; M62.81 Muscle weakness (generalized); R27.9 Unspecified lack of coordination
CPT/HCPCS: 36415; 80053; 85027

== ENCOUNTER → 2022-08-28 | Outpatient (REF) | payer MEDICARE, MEDICAID, SELFPAY ==
[2022-08-28 08:42] LABS: Hematocrit 43.5 % (37-47); Hemoglobin 13.9 g/dL (12.0-15.0); Mean Corpuscular Hgb 32.6 pg (27.0-32.0); Mean Corpuscular Volume 101.9 fL (81-99); Mean Platelet Vol. 11.2 fl (6.2-12.0); Platelet Count 198 K/mm3 (150-450); RBC Distribution Width CV 14.8 % (11.6-14.6); RBC Distribution Width SD 55.7 fl (35.1-43.9); Red Blood Count 4.27 M/mm3 (4.2-5.4); White Blood Count 7.7 K/mm3 (4.4-11.0)
== END ==
LOC: OLS.ACW300 05:00
PROVIDERS: Visit Provider Family Medicine
DX: R60.1 Generalized edema (principal); G35 Multiple sclerosis; M00.861 Arthritis due to other bacteria, right knee; R53.1 Weakness; R54 Age-related physical debility; R62.7 Adult failure to thrive; M62.81 Muscle weakness (generalized); R27.9 Unspecified lack of coordination
CPT/HCPCS: 36415; 85027

== ENCOUNTER → 2022-09-08 | Outpatient (REF) | payer MEDICARE, MEDICAID, SELFPAY ==
[2022-09-08 08:19] LABS: Hematocrit 45.6 % (37-47); Hemoglobin 14.1 g/dL (12.0-15.0); Mean Corp Hgb Conc 30.9 g/dL (32-36); Mean Corpuscular Hgb 31.7 pg (27.0-32.0); Mean Corpuscular Volume 102.5 fL (81-99); Mean Platelet Vol. 10.7 fl (6.2-12.0); Platelet Count 222 K/mm3 (150-450); RBC Distribution Width CV 14.7 % (11.6-14.6); Red Blood Count 4.45 M/mm3 (4.2-5.4); White Blood Count 8.2 K/mm3 (4.4-11.0)
[2022-09-08 08:35] LABS: ALB/GLOB Ratio 0.8 RATIO (0.9-2.4); AST(SGOT) 19 U/L (15-37); Alanine Aminotransfer ALT/SGPT 20 U/L (13-56); Albumin, Serum 2.9 g/dL (3.2-5.0); Alkaline Phosphatase 61 U/L (45-117); Anion Gap 2 (5-15); BUN 23 mg/dL (7-18); BUN/Creat Ratio 30.3 RATIO (10-20); Calcium,Total 8.8 mg/dL (8.5-10.1); Chloride 109 mmol/L (98-107); Creatinine, Serum 0.76 mg/dL (0.55-1.02); EST Glomerular Filtration Rate 81 mL/min (>60); Est Glom Filt Rate - Afr Amer 98 mL/min (>60); Globulin 3.6 g/dL (2.2-4.2); Glucose 116 mg/dL (74-106); Potassium 3.8 mmol/L (3.5-5.1); Protein, Total 6.5 g/dL (6.4-8.2); Sodium Level 139 mmol/L (136-145)
== END ==
LOC: OLS.ACW300 05:00
PROVIDERS: Visit Provider Family Medicine
DX: G35 Multiple sclerosis (principal); M00.861 Arthritis due to other bacteria, right knee; R54 Age-related physical debility; R62.7 Adult failure to thrive; M62.81 Muscle weakness (generalized); R27.9 Unspecified lack of coordination
CPT/HCPCS: 36415; 80053; 85027

== ENCOUNTER → 2022-10-06 | Outpatient (REF) | payer MEDICARE, MEDICAID, SELFPAY ==
[2022-10-06 09:34] LABS: Hematocrit 49.3 % (37-47); Hemoglobin 15.9 g/dL (12.0-15.0); Mean Corp Hgb Conc 32.3 g/dL (32-36); Mean Corpuscular Hgb 32.5 pg (27.0-32.0); Mean Corpuscular Volume 100.8 fL (81-99); Mean Platelet Vol. 11.6 fl (6.2-12.0); Platelet Count 202 K/mm3 (150-450); RBC Distribution Width CV 14.9 % (11.6-14.6); RBC Distribution Width SD 55.8 fl (35.1-43.9); Red Blood Count 4.89 M/mm3 (4.2-5.4); White Blood Count 8.1 K/mm3 (4.4-11.0)
[2022-10-06 09:47] LABS: ALB/GLOB Ratio 0.8 RATIO (0.9-2.4); AST(SGOT) 25 U/L (15-37); Alanine Aminotransfer ALT/SGPT 22 U/L (13-56); Albumin, Serum 3.5 g/dL (3.2-5.0); Alkaline Phosphatase 76 U/L (45-117); Anion Gap 8 (5-15); BUN 20 mg/dL (7-18); BUN/Creat Ratio 24.7 RATIO (10-20); Calcium,Total 9.3 mg/dL (8.5-10.1); Chloride 108 mmol/L (98-107); Creatinine, Serum 0.81 mg/dL (0.55-1.02); EST Glomerular Filtration Rate 75 mL/min (>60); Est Glom Filt Rate - Afr Amer 91 mL/min (>60); Globulin 4.4 g/dL (2.2-4.2); Glucose 156 mg/dL (74-106); Potassium 4.3 mmol/L (3.5-5.1); Protein, Total 7.9 g/dL (6.4-8.2); Sodium Level 139 mmol/L (136-145)
== END ==
LOC: OLS.ACW300 05:00
PROVIDERS: Visit Provider Family Medicine
DX: G35 Multiple sclerosis (principal); M00.861 Arthritis due to other bacteria, right knee; R53.1 Weakness; R54 Age-related physical debility; R62.7 Adult failure to thrive; M62.81 Muscle weakness (generalized); R27.9 Unspecified lack of coordination; Z79.899 Other long term (current) drug therapy
CPT/HCPCS: 36415; 80053; 85027

== ENCOUNTER → 2022-11-10 | Outpatient (REF) | payer MEDICARE, MEDICAID, SELFPAY ==
[2022-11-10 09:05] LABS: Hematocrit 49.5 % (37-47); Hemoglobin 15.7 g/dL (12.0-15.0); Mean Corp Hgb Conc 31.7 g/dL (32-36); Mean Platelet Vol. 11.7 fl (6.2-12.0); Platelet Count 206 K/mm3 (150-450); RBC Distribution Width CV 14.7 % (11.6-14.6); RBC Distribution Width SD 57.3 fl (35.1-43.9); Red Blood Count 4.76 M/mm3 (4.2-5.4); White Blood Count 9.6 K/mm3 (4.4-11.0)
[2022-11-10 09:15] LABS: ALB/GLOB Ratio 0.9 RATIO (0.9-2.4); AST(SGOT) 20 U/L (15-37); Alanine Aminotransfer ALT/SGPT 17 U/L (13-56); Albumin, Serum 3.4 g/dL (3.2-5.0); Alkaline Phosphatase 91 U/L (45-117); Anion Gap 10 (5-15); BUN 34 mg/dL (7-18); BUN/Creat Ratio 34.2 RATIO (10-20); Calcium,Total 9.2 mg/dL (8.5-10.1); Chloride 106 mmol/L (98-107); Creatinine, Serum 0.99 mg/dL (0.55-1.02); EST Glomerular Filtration Rate 59 mL/min (>60); Est Glom Filt Rate - Afr Amer 72 mL/min (>60); Globulin 3.9 g/dL (2.2-4.2); Glucose 95 mg/dL (74-106); Potassium 5.5 mmol/L (3.5-5.1); Protein, Total 7.3 g/dL (6.4-8.2); Sodium Level 140 mmol/L (136-145)
== END ==
LOC: OLS.ACW300 05:00
PROVIDERS: Visit Provider Family Medicine
DX: G35 Multiple sclerosis (principal); M00.861 Arthritis due to other bacteria, right knee; R53.1 Weakness; R54 Age-related physical debility; R62.7 Adult failure to thrive; M62.81 Muscle weakness (generalized); R27.9 Unspecified lack of coordination
CPT/HCPCS: 36415; 80053; 85027

== ENCOUNTER → 2022-11-27 05:00 | Outpatient (REF) | payer MEDICARE, MEDICAID, SELFPAY ==
[2022-11-27 09:57] LABS: ALB/GLOB Ratio 0.7 RATIO (0.9-2.4); AST(SGOT) 20 U/L (15-37); Alanine Aminotransfer ALT/SGPT 19 U/L (13-56); Alkaline Phosphatase 93 U/L (45-117); Anion Gap 3 (5-15); BUN 26 mg/dL (7-18); BUN/Creat Ratio 35.3 RATIO (10-20); CRP < 2.90 mg/L (0.0-3.0); Calcium,Total 8.6 mg/dL (8.5-10.1); Chloride 107 mmol/L (98-107); Creatinine, Serum 0.74 mg/dL (0.55-1.02); EST Glomerular Filtration Rate 84 mL/min (>60); Est Glom Filt Rate - Afr Amer 101 mL/min (>60); Globulin 4.4 g/dL (2.2-4.2); Glucose 104 mg/dL (74-106); Potassium 4.9 mmol/L (3.5-5.1); Protein, Total 7.4 g/dL (6.4-8.2); Sodium Level 137 mmol/L (136-145); Thyroid Stim Hormone (TSH) 3.41 uIU/mL (0.358-3.74)
== END ==
LOC: PR 05:00
PROVIDERS: Visit Provider Family Medicine
DX: G35 Multiple sclerosis (principal); M00.861 Arthritis due to other bacteria, right knee; R53.1 Weakness; R54 Age-related physical debility; R62.7 Adult failure to thrive; M62.81 Muscle weakness (generalized); R27.9 Unspecified lack of coordination
CPT/HCPCS: 36415; 80053; 83880; 84443; 86140

== ENCOUNTER → 2022-12-09 | Outpatient (REF) | payer MEDICARE, MEDICAID, SELFPAY ==
[2022-12-09 08:42] LABS: Hematocrit 41.4 % (37-47); Hemoglobin 12.9 g/dL (12.0-15.0); Mean Corp Hgb Conc 31.2 g/dL (32-36); Mean Corpuscular Hgb 32.4 pg (27.0-32.0); Platelet Count 185 K/mm3 (150-450); RBC Distribution Width CV 14.8 % (11.6-14.6); RBC Distribution Width SD 56.9 fl (35.1-43.9); Red Blood Count 3.98 M/mm3 (4.2-5.4); White Blood Count 6.1 K/mm3 (4.4-11.0)
[2022-12-09 08:57] LABS: ALB/GLOB Ratio 0.8 RATIO (0.9-2.4); AST(SGOT) 18 U/L (15-37); Alanine Aminotransfer ALT/SGPT 17 U/L (13-56); Albumin, Serum 2.7 g/dL (3.2-5.0); Alkaline Phosphatase 74 U/L (45-117); Anion Gap 4 (5-15); BUN 27 mg/dL (7-18); BUN/Creat Ratio 23.3 RATIO (10-20); Calcium,Total 8.3 mg/dL (8.5-10.1); Chloride 107 mmol/L (98-107); Creatinine, Serum 1.16 mg/dL (0.55-1.02); EST Glomerular Filtration Rate 50 mL/min (>60); Est Glom Filt Rate - Afr Amer 60 mL/min (>60); Globulin 3.6 g/dL (2.2-4.2); Glucose 107 mg/dL (74-106); Protein, Total 6.3 g/dL (6.4-8.2); Sodium Level 138 mmol/L (136-145)
== END ==
LOC: OLS.ACW300 05:00
PROVIDERS: Visit Provider Family Medicine
DX: G35 Multiple sclerosis (principal); M00.861 Arthritis due to other bacteria, right knee; R53.1 Weakness; R62.7 Adult failure to thrive; M62.81 Muscle weakness (generalized); R27.9 Unspecified lack of coordination
CPT/HCPCS: 36415; 80053; 85027

== ENCOUNTER → 2022-12-30 | Outpatient (REF) | payer MEDICARE, MEDICAID, SELFPAY ==
[2022-12-30 10:26] LABS: Hematocrit 43.6 % (37-47); Hemoglobin 13.9 g/dL (12.0-15.0); Mean Corp Hgb Conc 31.9 g/dL (32-36); Mean Corpuscular Hgb 33.1 pg (27.0-32.0); Mean Corpuscular Volume 103.8 fL (81-99); Mean Platelet Vol. 12.2 fl (6.2-12.0); Platelet Count 168 K/mm3 (150-450); RBC Distribution Width CV 14.5 % (11.6-14.6); RBC Distribution Width SD 56.2 fl (35.1-43.9); White Blood Count 6.6 K/mm3 (4.4-11.0)
[2022-12-30 10:59] LABS: ALB/GLOB Ratio 0.8 RATIO (0.9-2.4); AST(SGOT) 20 U/L (15-37); Alanine Aminotransfer ALT/SGPT 18 U/L (13-56); Albumin, Serum 3.3 g/dL (3.2-5.0); Alkaline Phosphatase 85 U/L (45-117); Anion Gap 6 (5-15); BUN 30 mg/dL (7-18); Chloride 105 mmol/L (98-107); Creatinine, Serum 0.86 mg/dL (0.55-1.02); EST Glomerular Filtration Rate 70 mL/min (>60); Est Glom Filt Rate - Afr Amer 85 mL/min (>60); Globulin 4.1 g/dL (2.2-4.2); Glucose 89 mg/dL (74-106); Potassium 4.1 mmol/L (3.5-5.1); Protein, Total 7.4 g/dL (6.4-8.2); Sodium Level 137 mmol/L (136-145)
== END ==
LOC: OLS.ACW300 05:00
PROVIDERS: Visit Provider Family Medicine
DX: J18.9 Pneumonia, unspecified organism (principal)
CPT/HCPCS: 36415; 80053; 85027; 87040

== ENCOUNTER → 2023-01-12 | Outpatient (REF) | payer MEDICARE, MEDICAID, SELFPAY ==
[2023-01-12 09:37] LABS: Hemoglobin 12.9 g/dL (12.0-15.0); Mean Corp Hgb Conc 31.5 g/dL (32-36); Mean Corpuscular Hgb 33.5 pg (27.0-32.0); Mean Corpuscular Volume 106.5 fL (81-99); Mean Platelet Vol. 11.2 fl (6.2-12.0); Platelet Count 171 K/mm3 (150-450); RBC Distribution Width CV 14.5 % (11.6-14.6); RBC Distribution Width SD 56.8 fl (35.1-43.9); Red Blood Count 3.85 M/mm3 (4.2-5.4); White Blood Count 4.9 K/mm3 (4.4-11.0)
[2023-01-12 10:05] LABS: ALB/GLOB Ratio 0.8 RATIO (0.9-2.4); AST(SGOT) 17 U/L (15-37); Alanine Aminotransfer ALT/SGPT 18 U/L (13-56); Albumin, Serum 2.7 g/dL (3.2-5.0); Alkaline Phosphatase 70 U/L (45-117); Anion Gap 3 (5-15); BUN 24 mg/dL (7-18); BUN/Creat Ratio 24.5 RATIO (10-20); Calcium,Total 8.7 mg/dL (8.5-10.1); Chloride 107 mmol/L (98-107); Creatinine, Serum 0.98 mg/dL (0.55-1.02); EST Glomerular Filtration Rate 60 mL/min (>60); Est Glom Filt Rate - Afr Amer 73 mL/min (>60); Globulin 3.6 g/dL (2.2-4.2); Glucose 86 mg/dL (74-106); Potassium 4.4 mmol/L (3.5-5.1); Protein, Total 6.3 g/dL (6.4-8.2); Sodium Level 141 mmol/L (136-145)
== END ==
LOC: OLS.ACW300 05:00
PROVIDERS: Visit Provider Family Medicine
DX: G35 Multiple sclerosis (principal); M00.861 Arthritis due to other bacteria, right knee; R53.1 Weakness
CPT/HCPCS: 36415; 80053; 85027

== ENCOUNTER → 2023-02-09 | Outpatient (REF) | payer MEDICARE, MEDICAID, SELFPAY ==
[2023-02-09 09:33] LABS: Hematocrit 40.6 % (37-47); Hemoglobin 12.9 g/dL (12.0-15.0); Mean Corp Hgb Conc 31.8 g/dL (32-36); Mean Corpuscular Hgb 32.7 pg (27.0-32.0); Mean Corpuscular Volume 102.8 fL (81-99); Mean Platelet Vol. 11.4 fl (6.2-12.0); Platelet Count 173 K/mm3 (150-450); RBC Distribution Width CV 13.8 % (11.6-14.6); RBC Distribution Width SD 53.2 fl (35.1-43.9); Red Blood Count 3.95 M/mm3 (4.2-5.4); White Blood Count 6.3 K/mm3 (4.4-11.0)
[2023-02-09 10:05] LABS: ALB/GLOB Ratio 0.7 RATIO (0.9-2.4); AST(SGOT) 15 U/L (15-37); Alanine Aminotransfer ALT/SGPT 14 U/L (13-56); Albumin, Serum 2.7 g/dL (3.2-5.0); Alkaline Phosphatase 87 U/L (45-117); Anion Gap 3 (5-15); BUN 23 mg/dL (7-18); BUN/Creat Ratio 26.2 RATIO (10-20); Calcium,Total 8.1 mg/dL (8.5-10.1); Chloride 107 mmol/L (98-107); Cholesterol 121 mg/dL (200); Creatinine, Serum 0.88 mg/dL (0.55-1.02); EST Glomerular Filtration Rate 68 mL/min (>60); Est Glom Filt Rate - Afr Amer 83 mL/min (>60); Globulin 3.8 g/dL (2.2-4.2); Glucose 87 mg/dL (74-106); High Density Lipoprotein 55 mg/dL; Potassium 4.3 mmol/L (3.5-5.1); Protein, Total 6.5 g/dL (6.4-8.2); Sodium Level 138 mmol/L (136-145); Triglycerides 81 mg/dL; Very Low Density Lipoprotein 16 mg/dL (5-40)
== END ==
LOC: OLS.ACW300 05:00
PROVIDERS: Visit Provider Family Medicine
DX: G35 Multiple sclerosis (principal); M00.861 Arthritis due to other bacteria, right knee; R53.1 Weakness; M62.81 Muscle weakness (generalized); Z79.899 Other long term (current) drug therapy
CPT/HCPCS: 36415; 80053; 80061; 85027

== ENCOUNTER → 2023-03-07 | Outpatient (REF) | payer MEDICARE, MEDICAID, SELFPAY ==
[2023-03-07 12:23] LABS: Mucous, Urine 0 SEEN /hpf (<or=2+)
[2023-03-07 12:53] LABS: Color, Urine Yellow (Yellow); Glucose, Dipstick Normal (Normal); Ketone-Dipstick Negative (Negative); Leukocyte Esterase-Dipstick 100 /ul (Negative); Nitrite-Dipstick Negative (Negative); Occult Blood-Urine 10 /ul (Negative); Protein-Dipstick Negative (Negative); Urine Bilirubin Dipstick Negative (Negative); Urine Clarity Clear (Clear); Urine Urobilinogen Normal (Normal); Urine pH 6.5 (5.0 - 8.0)
[2023-03-07 13:14] LABS: Bacteria RARE /hpf (None Seen); Red Blood Cells-Urine 0 SEEN /hpf (0-5); Squamous Epithelial Cells - UA 0-5 SEEN /hpf (5-10); White Blood Cells 0-5 SEEN /hpf (0-5)
== END ==
LOC: OLS.ACW300 11:00
PROVIDERS: Visit Provider Family Medicine
DX: N39.0 Urinary tract infection, site not specified (principal)
CPT/HCPCS: 81001; 87077; 87086; 87088; 87186; 88304

== ENCOUNTER → 2023-03-09 | Outpatient (REF) | payer MEDICARE, MEDICAID, SELFPAY ==
[2023-03-09 09:40] LABS: Hematocrit 44.7 % (37-47); Hemoglobin 13.7 g/dL (12.0-15.0); Mean Corp Hgb Conc 30.6 g/dL (32-36); Mean Corpuscular Hgb 31.8 pg (27.0-32.0); Mean Corpuscular Volume 103.7 fL (81-99); Mean Platelet Vol. 11.4 fl (6.2-12.0); Platelet Count 216 K/mm3 (150-450); RBC Distribution Width CV 13.9 % (11.6-14.6); RBC Distribution Width SD 54.2 fl (35.1-43.9); Red Blood Count 4.31 M/mm3 (4.2-5.4); White Blood Count 6.2 K/mm3 (4.4-11.0)
[2023-03-09 10:12] LABS: ALB/GLOB Ratio 0.8 RATIO (0.9-2.4); AST(SGOT) 14 U/L (15-37); Alanine Aminotransfer ALT/SGPT 16 U/L (13-56); Albumin, Serum 3.1 g/dL (3.2-5.0); Alkaline Phosphatase 94 U/L (45-117); Anion Gap 5 (5-15); BUN 30 mg/dL (7-18); BUN/Creat Ratio 31.3 RATIO (10-20); Calcium,Total 8.7 mg/dL (8.5-10.1); Chloride 106 mmol/L (98-107); Creatinine, Serum 0.96 mg/dL (0.55-1.02); EST Glomerular Filtration Rate 62 mL/min (>60); Est Glom Filt Rate - Afr Amer 75 mL/min (>60); Glucose 105 mg/dL (74-106); Protein, Total 7.1 g/dL (6.4-8.2); Sodium Level 139 mmol/L (136-145)
== END ==
LOC: OLS.ACW300 05:00
PROVIDERS: Visit Provider Family Medicine
DX: G35 Multiple sclerosis (principal); M00.861 Arthritis due to other bacteria, right knee; R53.1 Weakness; M62.81 Muscle weakness (generalized)
CPT/HCPCS: 36415; 80053; 85027

== ENCOUNTER → 2023-04-13 | Outpatient (REF) | payer MEDICARE, MEDICAID, SELFPAY ==
[2023-04-13 09:05] LABS: Hematocrit 43.2 % (37-47); Hemoglobin 13.6 g/dL (12.0-15.0); Mean Corp Hgb Conc 31.5 g/dL (32-36); Mean Corpuscular Hgb 32.1 pg (27.0-32.0); Mean Corpuscular Volume 101.9 fL (81-99); Mean Platelet Vol. 10.8 fl (6.2-12.0); Platelet Count 217 K/mm3 (150-450); RBC Distribution Width CV 14.7 % (11.6-14.6); RBC Distribution Width SD 55.5 fl (35.1-43.9); Red Blood Count 4.24 M/mm3 (4.2-5.4); White Blood Count 6.2 K/mm3 (4.4-11.0)
[2023-04-13 09:22] LABS: ALB/GLOB Ratio 0.7 RATIO (0.9-2.4); AST(SGOT) 25 U/L (15-37); Alanine Aminotransfer ALT/SGPT 20 U/L (13-56); Albumin, Serum 3.1 g/dL (3.2-5.0); Alkaline Phosphatase 78 U/L (45-117); Anion Gap 5 (5-15); BUN 23 mg/dL (7-18); BUN/Creat Ratio 26.3 RATIO (10-20); Calcium,Total 8.7 mg/dL (8.5-10.1); Chloride 108 mmol/L (98-107); Creatinine, Serum 0.88 mg/dL (0.55-1.02); EST Glomerular Filtration Rate 69 mL/min (>60); Est Glom Filt Rate - Afr Amer 83 mL/min (>60); Globulin 4.2 g/dL (2.2-4.2); Glucose 98 mg/dL (74-106); Potassium 4.5 mmol/L (3.5-5.1); Protein, Total 7.3 g/dL (6.4-8.2); Sodium Level 139 mmol/L (136-145)
== END ==
LOC: OLS.ACW300 05:00
PROVIDERS: Visit Provider Family Medicine
DX: G35 Multiple sclerosis (principal); M00.861 Arthritis due to other bacteria, right knee; R53.1 Weakness
CPT/HCPCS: 36415; 80053; 85027

== ENCOUNTER → 2023-05-11 | Outpatient (REF) | payer MEDICARE, MEDICAID, SELFPAY ==
[2023-05-11 08:24] LABS: Hematocrit 41.8 % (37-47); Hemoglobin 12.8 g/dL (12.0-15.0); Mean Corp Hgb Conc 30.6 g/dL (32-36); Mean Corpuscular Hgb 30.8 pg (27.0-32.0); Mean Corpuscular Volume 100.7 fL (81-99); Mean Platelet Vol. 10.8 fl (6.2-12.0); Platelet Count 196 K/mm3 (150-450); RBC Distribution Width CV 15.3 % (11.6-14.6); RBC Distribution Width SD 57.2 fl (35.1-43.9); Red Blood Count 4.15 M/mm3 (4.2-5.4); White Blood Count 7.2 K/mm3 (4.4-11.0)
[2023-05-11 09:06] LABS: ALB/GLOB Ratio 0.7 RATIO (0.9-2.4); AST(SGOT) 19 U/L (15-37); Alanine Aminotransfer ALT/SGPT 19 U/L (13-56); Albumin, Serum 2.7 g/dL (3.2-5.0); Alkaline Phosphatase 85 U/L (45-117); Anion Gap 5 (5-15); BUN 27 mg/dL (7-18); BUN/Creat Ratio 30.9 RATIO (10-20); Calcium,Total 8.9 mg/dL (8.5-10.1); Chloride 106 mmol/L (98-107); Creatinine, Serum 0.88 mg/dL (0.55-1.02); EST Glomerular Filtration Rate 69 mL/min (>60); Est Glom Filt Rate - Afr Amer 83 mL/min (>60); Globulin 3.7 g/dL (2.2-4.2); Glucose 102 mg/dL (74-106); Potassium 3.7 mmol/L (3.5-5.1); Protein, Total 6.4 g/dL (6.4-8.2); Sodium Level 142 mmol/L (136-145)
== END ==
LOC: OLS.ACW300 05:00
PROVIDERS: Visit Provider Family Medicine
DX: G35 Multiple sclerosis (principal); M00.861 Arthritis due to other bacteria, right knee; R53.1 Weakness; M62.81 Muscle weakness (generalized)
CPT/HCPCS: 36415; 80053; 85027

== ENCOUNTER → 2023-06-08 | Outpatient (REF) | payer MEDICARE, MEDICAID, SELFPAY ==
[2023-06-08 10:12] LABS: Hematocrit 47.4 % (37-47); Hemoglobin 14.4 g/dL (12.0-15.0); Mean Corp Hgb Conc 30.4 g/dL (32-36); Mean Corpuscular Hgb 31.3 pg (27.0-32.0); Mean Platelet Vol. 10.9 fl (6.2-12.0); Platelet Count 216 K/mm3 (150-450); RBC Distribution Width CV 15.4 % (11.6-14.6); RBC Distribution Width SD 58.5 fl (35.1-43.9); White Blood Count 6.9 K/mm3 (4.4-11.0)
[2023-06-08 10:40] LABS: ALB/GLOB Ratio 0.7 RATIO (0.9-2.4); AST(SGOT) 16 U/L (15-37); Alanine Aminotransfer ALT/SGPT 17 U/L (13-56); Albumin, Serum 3.1 g/dL (3.2-5.0); Alkaline Phosphatase 90 U/L (45-117); Anion Gap 3 (5-15); BUN 32 mg/dL (7-18); BUN/Creat Ratio 30.5 RATIO (10-20); Calcium,Total 9.1 mg/dL (8.5-10.1); Chloride 105 mmol/L (98-107); Creatinine, Serum 1.05 mg/dL (0.55-1.02); EST Glomerular Filtration Rate 56 mL/min (>60); Est Glom Filt Rate - Afr Amer 67 mL/min (>60); Globulin 4.2 g/dL (2.2-4.2); Glucose 90 mg/dL (74-106); Potassium 4.8 mmol/L (3.5-5.1); Protein, Total 7.3 g/dL (6.4-8.2); Sodium Level 138 mmol/L (136-145)
== END ==
LOC: OLS.ACW300 05:00
PROVIDERS: Visit Provider Family Medicine
DX: G35 Multiple sclerosis (principal); M00.861 Arthritis due to other bacteria, right knee; R53.1 Weakness
CPT/HCPCS: 36415; 80053; 85027

== ENCOUNTER → 2023-07-13 | Outpatient (REF) | payer MEDICARE, MEDICAID, SELFPAY ==
[2023-07-13 10:18] LABS: Hematocrit 47.1 % (37-47); Hemoglobin 14.8 g/dL (12.0-15.0); Mean Corp Hgb Conc 31.4 g/dL (32-36); Mean Corpuscular Hgb 31.7 pg (27.0-32.0); Mean Corpuscular Volume 100.9 fL (81-99); Mean Platelet Vol. 10.6 fl (6.2-12.0); Platelet Count 200 K/mm3 (150-450); RBC Distribution Width CV 15.4 % (11.6-14.6); RBC Distribution Width SD 57.7 fl (35.1-43.9); Red Blood Count 4.67 M/mm3 (4.2-5.4); White Blood Count 5.6 K/mm3 (4.4-11.0)
[2023-07-13 13:32] LABS: ALB/GLOB Ratio 0.8 RATIO (0.9-2.4); AST(SGOT) 18 U/L (15-37); Alanine Aminotransfer ALT/SGPT 21 U/L (13-56); Albumin, Serum 3.3 g/dL (3.2-5.0); Alkaline Phosphatase 84 U/L (45-117); Anion Gap 6 (5-15); BUN 23 mg/dL (7-18); BUN/Creat Ratio 29.3 RATIO (10-20); Calcium,Total 9.2 mg/dL (8.5-10.1); Chloride 108 mmol/L (98-107); Creatinine, Serum 0.78 mg/dL (0.55-1.02); EST Glomerular Filtration Rate 78 mL/min (>60); Est Glom Filt Rate - Afr Amer 94 mL/min (>60); Globulin 4.3 g/dL (2.2-4.2); Glucose 91 mg/dL (74-106); Potassium 4.7 mmol/L (3.5-5.1); Protein, Total 7.6 g/dL (6.4-8.2); Sodium Level 141 mmol/L (136-145)
== END ==
LOC: OLS.ACW300 05:00
PROVIDERS: Visit Provider Family Medicine
DX: G35 Multiple sclerosis (principal); M00.861 Arthritis due to other bacteria, right knee; R53.1 Weakness; M62.81 Muscle weakness (generalized)
CPT/HCPCS: 36415; 80053; 85027

== ENCOUNTER → 2023-08-10 | Outpatient (REF) | payer MEDICARE, MEDICAID, SELFPAY ==
[2023-08-10 09:21] LABS: Hematocrit 46.5 % (37-47); Hemoglobin 14.9 g/dL (12.0-15.0); Mean Corpuscular Hgb 32.1 pg (27.0-32.0); Mean Corpuscular Volume 100.2 fL (81-99); Mean Platelet Vol. 10.2 fl (6.2-12.0); Platelet Count 237 K/mm3 (150-450); RBC Distribution Width CV 14.6 % (11.6-14.6); RBC Distribution Width SD 54.9 fl (35.1-43.9); Red Blood Count 4.64 M/mm3 (4.2-5.4); White Blood Count 7.7 K/mm3 (4.4-11.0)
[2023-08-10 10:26] LABS: ALB/GLOB Ratio 0.7 RATIO (0.9-2.4); AST(SGOT) 15 U/L (15-37); Alanine Aminotransfer ALT/SGPT 18 U/L (13-56); Albumin, Serum 3.2 g/dL (3.2-5.0); Alkaline Phosphatase 93 U/L (45-117); Anion Gap 7 (5-15); BUN 30 mg/dL (7-18); BUN/Creat Ratio 26.5 RATIO (10-20); Calcium,Total 9.6 mg/dL (8.5-10.1); Chloride 104 mmol/L (98-107); Cholesterol 174 mg/dL (200); Creatinine, Serum 1.13 mg/dL (0.55-1.02); EST Glomerular Filtration Rate 51 mL/min (>60); Est Glom Filt Rate - Afr Amer 62 mL/min (>60); Globulin 4.3 g/dL (2.2-4.2); Glucose 102 mg/dL (74-106); High Density Lipoprotein 59 mg/dL; Potassium 4.2 mmol/L (3.5-5.1); Protein, Total 7.5 g/dL (6.4-8.2); Sodium Level 139 mmol/L (136-145); Triglycerides 265 mg/dL; Very Low Density Lipoprotein 53 mg/dL (5-40)
== END ==
LOC: OLS.ACW300 05:00
PROVIDERS: Visit Provider Family Medicine
DX: G35 Multiple sclerosis (principal); M00.861 Arthritis due to other bacteria, right knee; M62.81 Muscle weakness (generalized); Z79.899 Other long term (current) drug therapy
CPT/HCPCS: 36415; 80053; 80061; 85027

== ENCOUNTER → 2023-09-07 04:00 | Outpatient (REF) | payer MEDICARE, MEDICAID, SELFPAY ==
[2023-09-07 10:17] LABS: Hematocrit 49.1 % (37-47); Hemoglobin 15.5 g/dL (12.0-15.0); Mean Corp Hgb Conc 31.6 g/dL (32-36); Mean Corpuscular Hgb 32.4 pg (27.0-32.0); Mean Corpuscular Volume 102.5 fL (81-99); Mean Platelet Vol. 10.5 fl (6.2-12.0); Platelet Count 212 K/mm3 (150-450); RBC Distribution Width CV 14.6 % (11.6-14.6); RBC Distribution Width SD 55.1 fl (35.1-43.9); Red Blood Count 4.79 M/mm3 (4.2-5.4); White Blood Count 5.9 K/mm3 (4.4-11.0)
[2023-09-07 10:26] LABS: ALB/GLOB Ratio 0.8 RATIO (0.9-2.4); AST(SGOT) 23 U/L (15-37); Alanine Aminotransfer ALT/SGPT 20 U/L (13-56); Albumin, Serum 3.3 g/dL (3.2-5.0); Alkaline Phosphatase 83 U/L (45-117); Anion Gap 6 (5-15); BUN 25 mg/dL (7-18); BUN/Creat Ratio 26.8 RATIO (10-20); Calcium,Total 8.9 mg/dL (8.5-10.1); Chloride 104 mmol/L (98-107); Creatinine, Serum 0.93 mg/dL (0.55-1.02); EST Glomerular Filtration Rate 64 mL/min (>60); Est Glom Filt Rate - Afr Amer 77 mL/min (>60); Globulin 4.3 g/dL (2.2-4.2); Glucose 118 mg/dL (74-106); Protein, Total 7.6 g/dL (6.4-8.2); Sodium Level 139 mmol/L (136-145)
== END ==
LOC: OLS.ACW300 04:00
PROVIDERS: Referring Provider Family Medicine; Visit Provider Family Medicine
DX: G35 Multiple sclerosis (principal); M00.861 Arthritis due to other bacteria, right knee; R53.1 Weakness; R54 Age-related physical debility; R62.7 Adult failure to thrive; M62.81 Muscle weakness (generalized); R27.9 Unspecified lack of coordination
CPT/HCPCS: 36415; 80053; 85027

== ENCOUNTER → 2023-10-12 | Outpatient (REF) | payer MEDICARE, MEDICAID, SELFPAY ==
[2023-10-12 09:21] LABS: Hematocrit 49.3 % (37-47); Hemoglobin 15.2 g/dL (12.0-15.0); Mean Corp Hgb Conc 30.8 g/dL (32-36); Mean Corpuscular Hgb 32.1 pg (27.0-32.0); Mean Platelet Vol. 10.4 fl (6.2-12.0); Platelet Count 234 K/mm3 (150-450); RBC Distribution Width CV 14.6 % (11.6-14.6); RBC Distribution Width SD 56.4 fl (35.1-43.9); Red Blood Count 4.74 M/mm3 (4.2-5.4); White Blood Count 8.6 K/mm3 (4.4-11.0)
[2023-10-12 09:38] LABS: ALB/GLOB Ratio 0.8 RATIO (0.9-2.4); AST(SGOT) 20 U/L (15-37); Alanine Aminotransfer ALT/SGPT 19 U/L (13-56); Albumin, Serum 3.5 g/dL (3.2-5.0); Alkaline Phosphatase 96 U/L (45-117); Anion Gap 3 (5-15); BUN 21 mg/dL (7-18); BUN/Creat Ratio 22.5 RATIO (10-20); Calcium,Total 8.8 mg/dL (8.5-10.1); Chloride 104 mmol/L (98-107); Creatinine, Serum 0.93 mg/dL (0.55-1.02); EST Glomerular Filtration Rate 64 mL/min (>60); Est Glom Filt Rate - Afr Amer 77 mL/min (>60); Globulin 4.4 g/dL (2.2-4.2); Glucose 119 mg/dL (74-106); Potassium 4.7 mmol/L (3.5-5.1); Protein, Total 7.9 g/dL (6.4-8.2); Sodium Level 135 mmol/L (136-145)
== END ==
LOC: OLS.ACW300 05:00
PROVIDERS: Visit Provider Family Medicine
DX: Z79.899 Other long term (current) drug therapy (principal); Z51.81 Encounter for therapeutic drug level monitoring
CPT/HCPCS: 36415; 80053; 85027

== ENCOUNTER → 2023-11-09 05:00 | Outpatient (REF) | payer MEDICARE, MEDICAID, SELFPAY ==
[2023-11-09 08:55] LABS: Hematocrit 49.8 % (37-47); Hemoglobin 15.4 g/dL (12.0-15.0); Mean Corp Hgb Conc 30.9 g/dL (32-36); Mean Corpuscular Hgb 32.3 pg (27.0-32.0); Mean Corpuscular Volume 104.4 fL (81-99); Mean Platelet Vol. 10.4 fl (6.2-12.0); Platelet Count 222 K/mm3 (150-450); RBC Distribution Width CV 14.4 % (11.6-14.6); RBC Distribution Width SD 55.9 fl (35.1-43.9); Red Blood Count 4.77 M/mm3 (4.2-5.4); White Blood Count 6.9 K/mm3 (4.4-11.0)
[2023-11-09 09:42] LABS: ALB/GLOB Ratio 0.7 RATIO (0.9-2.4); AST(SGOT) 24 U/L (15-37); Alanine Aminotransfer ALT/SGPT 19 U/L (13-56); Albumin, Serum 3.3 g/dL (3.2-5.0); Alkaline Phosphatase 102 U/L (45-117); Anion Gap 4 (5-15); BUN 19 mg/dL (7-18); BUN/Creat Ratio 21.8 RATIO (10-20); Chloride 106 mmol/L (98-107); Creatinine, Serum 0.87 mg/dL (0.55-1.02); EST Glomerular Filtration Rate 69 mL/min (>60); Est Glom Filt Rate - Afr Amer 83 mL/min (>60); Globulin 4.5 g/dL (2.2-4.2); Glucose 98 mg/dL (74-106); Potassium 4.4 mmol/L (3.5-5.1); Protein, Total 7.8 g/dL (6.4-8.2); Sodium Level 137 mmol/L (136-145)
== END ==
LOC: OLS.ACW300 05:00
PROVIDERS: Visit Provider Family Medicine
DX: G35 Multiple sclerosis (principal); M00.861 Arthritis due to other bacteria, right knee; R53.1 Weakness; R54 Age-related physical debility; R62.7 Adult failure to thrive; M62.81 Muscle weakness (generalized); R27.9 Unspecified lack of coordination
CPT/HCPCS: 36415; 80053; 85027

== ENCOUNTER → 2023-12-09 07:02 | Outpatient (REF) | payer MEDICARE, MEDICAID, SELFPAY ==
[2023-12-09 09:15] LABS: Hematocrit 47.7 % (37-47); Mean Corp Hgb Conc 31.4 g/dL (32-36); Mean Corpuscular Hgb 31.4 pg (27.0-32.0); Mean Corpuscular Volume 99.8 fL (81-99); Mean Platelet Vol. 10.5 fl (6.2-12.0); Platelet Count 202 K/mm3 (150-450); RBC Distribution Width CV 14.5 % (11.6-14.6); RBC Distribution Width SD 53.7 fl (35.1-43.9); Red Blood Count 4.78 M/mm3 (4.2-5.4); White Blood Count 6.5 K/mm3 (4.4-11.0)
[2023-12-09 09:31] LABS: ALB/GLOB Ratio 0.7 RATIO (0.9-2.4); AST(SGOT) 21 U/L (15-37); Alanine Aminotransfer ALT/SGPT 18 U/L (13-56); Alkaline Phosphatase 101 U/L (45-117); Anion Gap 2 (5-15); BUN 19 mg/dL (7-18); BUN/Creat Ratio 22.5 RATIO (10-20); Calcium,Total 9.5 mg/dL (8.5-10.1); Chloride 104 mmol/L (98-107); Creatinine, Serum 0.84 mg/dL (0.55-1.02); EST Glomerular Filtration Rate 72 mL/min (>60); Est Glom Filt Rate - Afr Amer 87 mL/min (>60); Globulin 4.4 g/dL (2.2-4.2); Glucose 91 mg/dL (74-106); Potassium 4.1 mmol/L (3.5-5.1); Protein, Total 7.4 g/dL (6.4-8.2); Sodium Level 137 mmol/L (136-145)
== END ==
LOC: OLS.ACW100 07:02
PROVIDERS: Referring Provider Family Medicine; Visit Provider Family Medicine
DX: G35 Multiple sclerosis (principal); M00.861 Arthritis due to other bacteria, right knee; R53.1 Weakness; R54 Age-related physical debility; R62.7 Adult failure to thrive; M62.81 Muscle weakness (generalized); R27.9 Unspecified lack of coordination
CPT/HCPCS: 36415; 80053; 85027

== ENCOUNTER → 2024-02-09 05:00 | Outpatient (REF) | payer MEDICARE, MEDICAID, SELFPAY ==
[2024-02-09 09:21] LABS: ALB/GLOB Ratio 0.6 RATIO (0.9-2.4); AST(SGOT) 18 U/L (15-37); Alanine Aminotransfer ALT/SGPT 19 U/L (13-56); Albumin, Serum 2.9 g/dL (3.2-5.0); Alkaline Phosphatase 104 U/L (45-117); Anion Gap 4 (5-15); BUN 21 mg/dL (7-18); BUN/Creat Ratio 23.4 RATIO (10-20); Calcium,Total 9.3 mg/dL (8.5-10.1); Chloride 105 mmol/L (98-107); EST Glomerular Filtration Rate 67 mL/min (>60); Est Glom Filt Rate - Afr Amer 80 mL/min (>60); Globulin 4.5 g/dL (2.2-4.2); Glucose 99 mg/dL (74-106); Potassium 4.6 mmol/L (3.5-5.1); Protein, Total 7.4 g/dL (6.4-8.2); Sodium Level 139 mmol/L (136-145)
== END ==
LOC: OLS.ACW300 05:00
PROVIDERS: Visit Provider Family Medicine
DX: Z79.899 Other long term (current) drug therapy (principal)
CPT/HCPCS: 36415; 80053

== ENCOUNTER → 2024-03-10 | Outpatient (REF) | payer MEDICARE, MEDICAID, SELFPAY ==
[2024-03-10 07:19] LABS: Hematocrit 44.6 % (37-47); Hemoglobin 13.6 g/dL (12.0-15.0); Mean Corp Hgb Conc 30.5 g/dL (32-36); Mean Corpuscular Hgb 31.1 pg (27.0-32.0); Mean Corpuscular Volume 101.8 fL (81-99); Mean Platelet Vol. 10.4 fl (6.2-12.0); Platelet Count 166 K/mm3 (150-450); RBC Distribution Width CV 15.5 % (11.6-14.6); RBC Distribution Width SD 58.7 fl (35.1-43.9); Red Blood Count 4.38 M/mm3 (4.2-5.4); White Blood Count 6.2 K/mm3 (4.4-11.0)
[2024-03-10 07:39] LABS: ALB/GLOB Ratio 0.8 RATIO (0.9-2.4); AST(SGOT) 17 U/L (15-37); Alanine Aminotransfer ALT/SGPT 17 U/L (13-56); Albumin, Serum 2.7 g/dL (3.2-5.0); Alkaline Phosphatase 92 U/L (45-117); Anion Gap 3 (5-15); BUN 24 mg/dL (7-18); BUN/Creat Ratio 28.9 RATIO (10-20); Calcium,Total 8.7 mg/dL (8.5-10.1); Chloride 105 mmol/L (98-107); Creatinine, Serum 0.83 mg/dL (0.55-1.02); EST Glomerular Filtration Rate 73 mL/min (>60); Est Glom Filt Rate - Afr Amer 88 mL/min (>60); Globulin 3.6 g/dL (2.2-4.2); Glucose 128 mg/dL (74-106); Potassium 4.3 mmol/L (3.5-5.1); Protein, Total 6.3 g/dL (6.4-8.2); Sodium Level 139 mmol/L (136-145)
== END ==
LOC: OLS.ACW300 05:00
PROVIDERS: Visit Provider Family Medicine
DX: G35 Multiple sclerosis (principal); M00.861 Arthritis due to other bacteria, right knee; R53.1 Weakness; R62.7 Adult failure to thrive; M62.81 Muscle weakness (generalized); Z79.899 Other long term (current) drug therapy
CPT/HCPCS: 36415; 80053; 85027

== ENCOUNTER → 2024-03-24 | Outpatient (REF) | payer MEDICARE, MEDICAID, SELFPAY ==
[2024-03-24 08:58] LABS: Absolute Lymphocyte Count 2.12 X10^3/uL (0.83-4.51); Absolute Neutrophil Count 5.7 X10^3/uL (2.0-7.7); Basophil# 0.07 X10^3/uL; Basophil% 0.8 % (0-1); Eosinophil# 0.22 X10^3/uL; Eosinophils% 2.5 % (0-5); Hematocrit 47.6 % (37-47); Lymphocyte # 2.12 X10^3/ul (0.83-4.51); Lymphocyte % 23.7 % (19-41); Mean Corp Hgb Conc 31.5 g/dL (32-36); Mean Corpuscular Hgb 31.4 pg (27.0-32.0); Mean Corpuscular Volume 99.8 fL (81-99); Mean Platelet Vol. 10.3 fl (6.2-12.0); Monocyte# 0.81 X10^3/uL; Monocyte% 9.1 % (0-10); NRBC Flagged by Analyzer 0 % (0-5); Neutrophil # 5.69 X10^3/uL (2.7-7.7); Neutrophil % 63.5 % (47-70); Platelet Count 219 K/mm3 (150-450); RBC Distribution Width CV 15.2 % (11.6-14.6); RBC Distribution Width SD 56.3 fl (35.1-43.9); Red Blood Count 4.77 M/mm3 (4.2-5.4)
== END ==
LOC: OLS.ACW300 05:00
PROVIDERS: Visit Provider Family Medicine
DX: J44.9 Chronic obstructive pulmonary disease, unspecified (principal); G35 Multiple sclerosis; R53.1 Weakness
CPT/HCPCS: 36415; 85025

== ENCOUNTER → 2024-04-11 | Outpatient (REF) | payer MEDICARE, MEDICAID, SELFPAY ==
[2024-04-11 08:20] LABS: Hematocrit 47.1 % (37-47); Hemoglobin 15.2 g/dL (12.0-15.0); Mean Corp Hgb Conc 32.3 g/dL (32-36); Mean Corpuscular Hgb 32.1 pg (27.0-32.0); Mean Corpuscular Volume 99.4 fL (81-99); Mean Platelet Vol. 10.3 fl (6.2-12.0); Platelet Count 191 K/mm3 (150-450); RBC Distribution Width CV 15.9 % (11.6-14.6); RBC Distribution Width SD 58.9 fl (35.1-43.9); Red Blood Count 4.74 M/mm3 (4.2-5.4); White Blood Count 7.2 K/mm3 (4.4-11.0)
[2024-04-11 08:55] LABS: ALB/GLOB Ratio 0.7 RATIO (0.9-2.4); AST(SGOT) 22 U/L (15-37); Alanine Aminotransfer ALT/SGPT 19 U/L (13-56); Albumin, Serum 3.1 g/dL (3.2-5.0); Alkaline Phosphatase 81 U/L (45-117); Anion Gap 6 (5-15); BUN 22 mg/dL (7-18); BUN/Creat Ratio 26.5 RATIO (10-20); Calcium,Total 8.4 mg/dL (8.5-10.1); Chloride 109 mmol/L (98-107); Creatinine, Serum 0.83 mg/dL (0.55-1.02); EST Glomerular Filtration Rate 73 mL/min (>60); Est Glom Filt Rate - Afr Amer 88 mL/min (>60); Globulin 4.3 g/dL (2.2-4.2); Glucose 112 mg/dL (74-106); Potassium 4.2 mmol/L (3.5-5.1); Protein, Total 7.4 g/dL (6.4-8.2); Sodium Level 139 mmol/L (136-145)
== END ==
LOC: OLS.ACW300 05:00
PROVIDERS: Visit Provider Family Medicine
DX: Z79.899 Other long term (current) drug therapy (principal); G35 Multiple sclerosis; M00.861 Arthritis due to other bacteria, right knee; J44.9 Chronic obstructive pulmonary disease, unspecified
CPT/HCPCS: 36415; 80053; 85027

== ENCOUNTER → 2024-05-11 | Outpatient (REF) | payer MEDICARE, MEDICAID, SELFPAY ==
[2024-05-11 08:28] LABS: Hematocrit 43.3 % (37-47); Hemoglobin 13.4 g/dL (12.0-15.0); Mean Corp Hgb Conc 30.9 g/dL (32-36); Mean Corpuscular Hgb 31.8 pg (27.0-32.0); Mean Corpuscular Volume 102.6 fL (81-99); Platelet Count 174 K/mm3 (150-450); RBC Distribution Width CV 15.8 % (11.6-14.6); RBC Distribution Width SD 59.7 fl (35.1-43.9); Red Blood Count 4.22 M/mm3 (4.2-5.4)
[2024-05-11 08:52] LABS: ALB/GLOB Ratio 0.8 RATIO (0.9-2.4); AST(SGOT) 18 U/L (15-37); Alanine Aminotransfer ALT/SGPT 20 U/L (13-56); Albumin, Serum 2.8 g/dL (3.2-5.0); Alkaline Phosphatase 84 U/L (45-117); Anion Gap 2 (5-15); BUN 25 mg/dL (7-18); BUN/Creat Ratio 32.1 RATIO (10-20); Calcium,Total 8.9 mg/dL (8.5-10.1); Chloride 108 mmol/L (98-107); Creatinine, Serum 0.78 mg/dL (0.55-1.02); EST Glomerular Filtration Rate 78 mL/min (>60); Est Glom Filt Rate - Afr Amer 95 mL/min (>60); Globulin 3.7 g/dL (2.2-4.2); Glucose 109 mg/dL (74-106); Potassium 4.6 mmol/L (3.5-5.1); Protein, Total 6.5 g/dL (6.4-8.2); Sodium Level 139 mmol/L (136-145)
== END ==
LOC: OLS.ACW300 05:00
PROVIDERS: Visit Provider Family Medicine
DX: Z79.899 Other long term (current) drug therapy (principal)
CPT/HCPCS: 36415; 80053; 85027

== ENCOUNTER → 2024-07-04 05:00 | Outpatient (REF) | payer MEDICARE, MEDICAID, SELFPAY ==
[2024-07-04 09:52] LABS: Hemoglobin 14.4 g/dL (12.0-15.0); Mean Corp Hgb Conc 30.6 g/dL (32-36); Mean Corpuscular Hgb 31.5 pg (27.0-32.0); Mean Corpuscular Volume 102.8 fL (81-99); Mean Platelet Vol. 10.2 fl (6.2-12.0); Platelet Count 221 K/mm3 (150-450); RBC Distribution Width CV 14.6 % (11.6-14.6); RBC Distribution Width SD 55.4 fl (35.1-43.9); Red Blood Count 4.57 M/mm3 (4.2-5.4); White Blood Count 6.8 K/mm3 (4.4-11.0)
[2024-07-04 10:59] LABS: ALB/GLOB Ratio 0.7 RATIO (0.9-2.4); AST(SGOT) 20 U/L (15-37); Alanine Aminotransfer ALT/SGPT 23 U/L (13-56); Albumin, Serum 3.3 g/dL (3.2-5.0); Alkaline Phosphatase 89 U/L (45-117); Anion Gap 7 (5-15); BUN 21 mg/dL (7-18); BUN/Creat Ratio 22.4 RATIO (10-20); Calcium,Total 8.6 mg/dL (8.5-10.1); Chloride 102 mmol/L (98-107); Creatinine, Serum 0.94 mg/dL (0.55-1.02); EST Glomerular Filtration Rate 63 mL/min (>60); Est Glom Filt Rate - Afr Amer 76 mL/min (>60); Globulin 4.5 g/dL (2.2-4.2); Glucose 143 mg/dL (74-106); Potassium 4.2 mmol/L (3.5-5.1); Protein, Total 7.8 g/dL (6.4-8.2); Sodium Level 136 mmol/L (136-145)
== END ==
LOC: OLS.ACW300 05:00
PROVIDERS: Visit Provider Family Medicine
DX: G35 Multiple sclerosis (principal); M00.861 Arthritis due to other bacteria, right knee; R53.1 Weakness; J44.9 Chronic obstructive pulmonary disease, unspecified; R62.7 Adult failure to thrive
CPT/HCPCS: 36415; 80053; 85027

== ENCOUNTER → 2024-07-12 05:00 | Outpatient (REF) | payer MEDICARE, MEDICAID, SELFPAY ==
[2024-07-12 08:11] LABS: Hematocrit 47.4 % (37-47); Hemoglobin 14.9 g/dL (12.0-15.0); Mean Corp Hgb Conc 31.4 g/dL (32-36); Mean Corpuscular Hgb 31.6 pg (27.0-32.0); Mean Corpuscular Volume 100.4 fL (81-99); Mean Platelet Vol. 10.4 fl (6.2-12.0); Platelet Count 180 K/mm3 (150-450); RBC Distribution Width CV 14.4 % (11.6-14.6); Red Blood Count 4.72 M/mm3 (4.2-5.4); White Blood Count 6.2 K/mm3 (4.4-11.0)
[2024-07-12 08:32] LABS: ALB/GLOB Ratio 0.7 RATIO (0.9-2.4); AST(SGOT) 23 U/L (15-37); Alanine Aminotransfer ALT/SGPT 20 U/L (13-56); Albumin, Serum 3.2 g/dL (3.2-5.0); Alkaline Phosphatase 80 U/L (45-117); Anion Gap 4 (5-15); BUN 24 mg/dL (7-18); BUN/Creat Ratio 30.7 RATIO (10-20); Calcium,Total 8.9 mg/dL (8.5-10.1); Chloride 107 mmol/L (98-107); Creatinine, Serum 0.78 mg/dL (0.55-1.02); EST Glomerular Filtration Rate 78 mL/min (>60); Est Glom Filt Rate - Afr Amer 94 mL/min (>60); Globulin 4.6 g/dL (2.2-4.2); Glucose 97 mg/dL (74-106); Potassium 4.4 mmol/L (3.5-5.1); Protein, Total 7.8 g/dL (6.4-8.2); Sodium Level 138 mmol/L (136-145)
== END ==
LOC: OLS.ACW300 05:00
PROVIDERS: Visit Provider Family Medicine
DX: G35 Multiple sclerosis (principal); M00.861 Arthritis due to other bacteria, right knee; R53.1 Weakness; R54 Age-related physical debility; R62.7 Adult failure to thrive; J44.9 Chronic obstructive pulmonary disease, unspecified
CPT/HCPCS: 36415; 80053; 85027

== ENCOUNTER → 2024-08-10 | Outpatient (REF) | payer MEDICARE, MEDICAID, SELFPAY ==
[2024-08-10 07:59] LABS: Hemoglobin 13.9 g/dL (12.0-15.0); Mean Corp Hgb Conc 32.3 g/dL (32-36); Mean Corpuscular Hgb 32.3 pg (27.0-32.0); Mean Corpuscular Volume 99.8 fL (81-99); Mean Platelet Vol. 9.9 fl (6.2-12.0); Platelet Count 189 K/mm3 (150-450); RBC Distribution Width CV 14.4 % (11.6-14.6); RBC Distribution Width SD 53.2 fl (35.1-43.9); Red Blood Count 4.31 M/mm3 (4.2-5.4); White Blood Count 6.2 K/mm3 (4.4-11.0)
[2024-08-10 08:24] LABS: ALB/GLOB Ratio 1.1 RATIO (0.9-2.4); AST(SGOT) 23 U/L (<=31); Alanine Aminotransfer ALT/SGPT 15 U/L (<=34); Albumin, Serum 3.5 g/dL (3.4-4.8); Alkaline Phosphatase 72 U/L (35-104); Anion Gap 13 (5-15); BUN 22 mg/dL (4-19); BUN/Creat Ratio 24.2 RATIO (10-20); Calcium,Total 8.9 mg/dL (7.6-11.0); Carbon Dioxide 22.7 mmol/L (21.0-32.0); Chloride 105 mmol/L (98-108); Creatinine, Serum 0.91 mg/dL (0.70-1.20); EST Glomerular Filtration Rate 69 (>60); Globulin 3.3 g/dL (2.2-4.2); Glucose 118 mg/dL (70-99); Potassium 4.2 mmol/L (3.3-5.1); Protein, Total 6.8 g/dL (5.9-8.4); Sodium Level 140 mmol/L (133-145); Total Bilirubin 0.39 mg/dL (0.00-1.30)
== END ==
LOC: OLS.ACW300 05:00
PROVIDERS: Visit Provider Family Medicine
DX: G35 Multiple sclerosis (principal); Z79.899 Other long term (current) drug therapy; J44.9 Chronic obstructive pulmonary disease, unspecified
CPT/HCPCS: 36415; 80053; 85027

== ENCOUNTER → 2024-09-09 | Outpatient (REF) | payer MEDICARE, MEDICAID, SELFPAY ==
[2024-09-09 07:38] LABS: Hematocrit 43.7 % (37-47); Hemoglobin 14.2 g/dL (12.0-15.0); Mean Corp Hgb Conc 32.5 g/dL (32-36); Mean Corpuscular Hgb 32.9 pg (27.0-32.0); Mean Corpuscular Volume 101.4 fL (81-99); Mean Platelet Vol. 10.2 fl (6.2-12.0); Platelet Count 209 K/mm3 (150-450); RBC Distribution Width CV 14.6 % (11.6-14.6); RBC Distribution Width SD 55.1 fl (35.1-43.9); Red Blood Count 4.31 M/mm3 (4.2-5.4); White Blood Count 6.1 K/mm3 (4.4-11.0)
[2024-09-09 07:52] LABS: ALB/GLOB Ratio 1.1 RATIO (0.9-2.4); AST(SGOT) 24 U/L (<=31); Alanine Aminotransfer ALT/SGPT 20 U/L (<=34); Albumin, Serum 3.5 g/dL (3.4-4.8); Alkaline Phosphatase 91 U/L (35-104); Anion Gap 11 (5-15); BUN 27 mg/dL (4-19); BUN/Creat Ratio 33.8 RATIO (10-20); Calcium,Total 8.6 mg/dL (7.6-11.0); Carbon Dioxide 24.6 mmol/L (21.0-32.0); Chloride 106 mmol/L (98-108); Creatinine, Serum 0.79 mg/dL (0.70-1.20); EST Glomerular Filtration Rate 81 (>60); Globulin 3.2 g/dL (2.2-4.2); Glucose 113 mg/dL (70-99); Potassium 4.3 mmol/L (3.3-5.1); Protein, Total 6.6 g/dL (5.9-8.4); Sodium Level 141 mmol/L (133-145); Total Bilirubin 0.31 mg/dL (0.00-1.30)
== END ==
LOC: OLS.ACW300 05:00
PROVIDERS: Visit Provider Family Medicine
DX: Z79.899 Other long term (current) drug therapy (principal); G35 Multiple sclerosis
CPT/HCPCS: 36415; 80053; 85027

== ENCOUNTER → 2024-10-15 13:00 | Outpatient (REF) | payer MEDICARE, MEDICAID, SELFPAY | LOC: OLS.ACW300 13:00 | PROVIDERS: Visit Provider Family Medicine | DX: G35 Multiple sclerosis (principal); M00.861 Arthritis due to other bacteria, right knee; R53.1 Weakness; R62.7 Adult failure to thrive; J44.9 Chronic obstructive pulmonary disease, unspecified; R50.9 Fever, unspecified; R54 Age-related physical debility | CPT/HCPCS: 87077; 87086; 87088; 87186 ==

== ENCOUNTER → 2024-11-09 05:00 | Outpatient (REF) | payer MEDICARE, MEDICAID, SELFPAY ==
--- OUTSIDE RECORDS SUMMARY | 2024-11-09 04:04 | XMS RPT_ITS | CCD ---
Author Organization [facility] ion Partnership [facility] Care Team Providers Care Saw Grinder Name Role Phone Moreno Oates Primary Care Provider [phone] Lamonte Weber Unavailable Moreno Oates MD Primary Care Provider Moreno Oates MD Unavailable Moreno Oates MD Unavailable Sanjana Tarango MD Unavailable Lamonte Weber Unavailable Sanjana Tarango MD Unavailable Lamonte Weber Unavailable Moreno Oates MD Primary Care Provider [phone] Moreno Oates MD Unavailable Moreno Oates MD Unavailable Sanjana Tarango MD Unavailable Moreno Oates MD Unavailable Lamonte Weber Unavailable Moreno Oates MD Primary Care Provider Moreno Oates MD Unavailable Moreno Oates MD Unavailable Moreno Oates Referring Unavailable Moreno Oates Attending Unavailable Moreno Oates Primary Care Unavailable Moreno Oates Primary Care Unavailable Moreno Oates Referring Unavailable Moreno Oates Attending Unavailable Lamonte Weber Unavailable Gracie YEE, Moreno Gong Primary Care Provider Gracie YEE, Moreno R Unavailable [phone] Gracie YEE, Moreno R Unavailable Sukhdeep YEE, Sanjana Unavailable PROVIDER, UNKNOWN Referring Unavailable MORENO OATES Primary Care Unavailable Moreno Oates Primary Care Provider KENJI DO~[id number], KENJIJESSICA Rodríguez Attendi ng Unavailable KENJI DO~[id number], KENJIJESSICA Rodríguez Admitti ng Unavailable MORENO OATES Primary Care Unavailable Gracie YEE, Moreno Gong Primary Care Provider Sigifredo WAYS OPERATOR.SENIOR CONSUMER INSIGHTS CONSULTANT, Carlos Unavailable Ender Oates MD Attending Provider Royer Maldonado Attending Provider Unavailabl e Gracie RICKS, Ender Attending Unavailable Merary IRCKS, Royer Attending Unavailable Gracie RICKS, Ender Attending Unavailable Merary RICKS, Royer Attending Unavailable Gracie RICKS, Ender Referring Unavailable Gracie RICKS, Ender Attending Unavailable Gracie RICKS, Ender Attending Unavailable Gracie RICKS, Ender Attending Unavailable Merary RICKS, Royer Attending Unavailable Gracie RICKS, Ender Attending Unavailable Merary RICKS, Royer Attending Unavailable Gracie RICKS, Ender Attending Unavailable Gracie RICKS, Ender Attending Unavailable MORENO OATES Primary Care Unavailable RED GUIDRY Admitting Unavailable RED GUIDRY Attending Unavailable Allergies Allergy Classification Reported Allergen(s) Allergy Type Date of Onset Reaction(s) Facility Acetaminophen / HYDROcodone (3 sources) Acetaminophen / HYDROcodone Drug Allergy 08-15-19 17 [facility] Anti-Epileptic Agents (3 sources) gabapentin Drug Allergy 10-08-19 19 [facility] Cephalosporins (antibiotic) (3 sources) Cephalexin Drug Allergy 12-12-19 15 Anxiety [facility] Nitrofurantoin (3 sources) Nitrofurantoin Drug Allergy 12-12-19 15 Hives [facility] Opioid Agonists (3 sources) traMADol Drug Allergy 01-23-20 17 Other (See Comments) [facility] (20 sources) Acetaminophen / HYDROcodone; Translations: [HYDROCODONE-ACETA MINOPHEN] Drug Allergy 08-15-19 17 [facility] [place] (5 sources) Cephalexin Drug Allergy 12-12-19 15 [place] (5 sources) Nitrofurantoin Drug Allergy 12-12-19 15 [place] (20 sources) gabapentin; Translations: [GABAPENTIN] Drug Allergy 10-08-19 19 [facility] Work Phone: (20 sources) NITROFURANTOIN, MACROCRYSTALS / Nitrofurantoin, Monohydrate; Translations: [NITROFURANTOIN MONOHYD/M-CRYST] Drug Allergy 02-13-20 16 [facility] (20 sources) Non-steroidal anti-inflammatory agent; Translations: [NSAIDS (NON-STEROIDAL ANTI-INFLAMMATORY DRUG)] Drug Intolerance 06-06-19 17 [facility] (20 sources) traMADol; Translations: [TRAMADOL] Drug Allergy 01-23-20 17 [facility] (20 sources) Non-steroidal anti-inflammatory agent Drug Intolerance 06-06-19 17 GI [facility] (2 sources) Nitrofurantoin Drug Allergy 02-13-20 16 [facility] Medications Current Medications Medication Drug Class(es) Dates Sig (Normalized) Sig (Original) albuterol 0.833 mg/ml / ipratropium bromide 0.167 mg/ml inhalant solution (2 sources) Anticholinergic, beta2-Adrenergic Agonist Start: 10-09-2019 End: 10-13-2019 ipratropium-albu terol (DUONEB) nebulizer solution 1 ampule amoxicillin 875 mg / clavulanate 125 mg oral tablet (2 sources) Penicillin-class Antibacterial Start: 10-25-2019 End: 10-27-2019 take 1 tablet by mouth every twelve hours amoxicillin-clav ulanate (AUGMENTIN) 875-125 MG per tablet Take 1 tablet by mouth every 12 hours for 2 days 4 tablet 0 10/25/2019 10/27/2019 Active Start: 10-24-2019 End: 10-27-2019 amoxicillin-clavulanate (AUG MENTIN) 875-125 MG per tablet 1 tablet apixaban 5 mg oral tablet (20 sources) Factor Xa Inhibitor Start: 12-12-2019 take 1 tablet by mouth twice daily apixaban (ELIQUIS) 5 mg tab(s) Take 1 tablet by mouth twice daily. 60 tablet 5 12/12/2019 Active Comment on above: Take 1 tablet by candido th twice daily. ascorbic acid 500 mg oral tablet (20 sources) Vitamin C Start: 03-30-2018 take 1 tablet by mouth twice daily at mealtime ascorbic acid, vitamin C, (VITAMIN C) 500 mg tablet Take 1 tablet by mouth twice daily with meals. 60 tablet 5 03/30/2018 Active Comment on above: Take 1 tablet by candido th twice daily with meals. Calcium Carbonate (20 sources) calcium carbonat e (TUMS 500 ORAL) Take by mouth. Active calcium carbonat e (TUMS 500 ORAL) Take by mouth. 0 Active Comment on above: Take by mouth. COMPOUNDED PRESCRIPTION (20 sources) Start: 01-04-2019 COMPOUNDED PRESCRIPTION Indications: Failure of total knee replacement, sequela , Multiple sclerosis (HCC) , Mechanical complication of internal orthopedic device, implant or graft, subsequent encounter , Chronic pain of right knee , Osteoarthritis of right knee, unspecified osteoarthritis type , Requires scooter for mobility , Generalized weakness , Inability to ambulate due to knee Power Mobility Device scooter. Face to face evaluation 12/30/2018 Diagnosis: (T84.018S, Z96.659) Failure of total knee replacement, sequela (primary encounter diagnosis) (G35) Multiple sclerosis (HCC) (T84.498D) Mechanical complication of internal orthopedic device, implant or graft, subsequent encounter (M25.561, G89.29) Chronic pain of right knee (M17.11) Osteoarthritis of right knee, unspecified osteoarthritis type (R53.1) Generalized weakness (Z74.09) Requires scooter for mobility Length of need: 99 mos/ lifetime. 1 Device 01/04/2019 Active Start: 01-04-2019 COMPOUNDED PRE SCRIPTION Indications: Failure of total knee replacement, sequela , Multiple sclerosis (HCC) , Mechanical complication of internal orthopedic device, implant or graft, subsequent encounter , Chronic pain of right knee , Osteoarthritis of right knee, unspecified osteoarthritis type , Requires scooter for mobility , Generalized weakness , Inability to ambulate due to knee Power Mobility Device scooter. Face to face evaluation 12/30/2018 Diagnosis: (T84.018S, Z96.659) Failure of total knee replacement, sequela (primary encounter diagnosis) (G35) Multiple sclerosis (HCC) (T84.498D) Mechanical complication of internal orthopedic device, implant or graft, subsequent encounter (M25.561, G89.29) Chronic pain of right knee (M17.11) Osteoarthritis of right knee, unspecified osteoarthritis type (R53.1) Generalized weakness (Z74.09) Requires scooter for mobility Length of need: 99 mos/ lifetime. 1 Device 0 01/04/2019 Active Comment on above: Power Mobility Devic e scooter. Face to face evaluation 12/30/2018 Diagnosis: (T84.018S, Z96.659) Failure of total knee replacement, sequela (primary encounter diagnosis) (G35) Multiple sclerosis (HCC) (T84.498D) Mechanical complication of internal orthopedic device, implant or graft, subsequent encounter (M25.561, G89.29) Chronic pain of right knee (M17.11) Osteoarthritis of right knee, unspecified osteoarthritis type (R53.1) Generalized weakness (Z74.09) Requires scooter for mobility Length of need: 99 mos/ lifetime. diclofenac sodium 0.01 mg/mg topical gel (20 sources) Nonsteroidal Anti-inflammatory Drug Start: 2019 End: 2023 apply 4 g topically four times daily diclofenac (VOLTAREN) 1 % topical gel Apply 4 g to affected area four times daily. To back 100 g 11 10/08/2023 Active Comment on above: Apply 4 g to affecte d area four times daily. To back diphenhydrAMINE hydrochloride 25 mg oral tablet (1 source) Histamine-1 Receptor Antagonist Start: 2019 diphenhydrAMINE (BENADRYL) tablet 25 mg doxycycline hyclate 100 mg oral capsule (20 sources) Tetracycline-class Drug Start: 2022 End: 2022 take 1 capsule by mouth twice daily doxycycline hyclate (VIBRAMYCIN) 100 mg capsule Take 1 capsule by mouth twice daily for 7 days. 14 capsule 02/13/2023 Active Start: 03-28-2021 End: 02-13-2023 take 1 tablet by mouth twice daily doxycycline (VIBRA-TABS) 100 mg tablet Indications: Pyogenic arthritis of right knee joint, due to unspecified organism (HCC) Take 1 tablet by mouth twice daily. 20 tablet 03/28/2021 02/13/2023 Discontinued Comment on above: Take 1 tablet by candido twice daily. Take 1 capsule by [facility] twice daily for 7 days. 0.4 ml enoxaparin sodium 100 mg/ml prefilled syringe (2 sources) Low Molecular Weight Heparin Start: 11-05-2019 inject 40 mg by subcutaneous injection once daily 40 mg, Subcutaneous, DAILY, First dose on 11/05/19 at 2100 Start: 10-03-2019 enoxaparin (LO VENOX) injection 40 mg 4 ml furosemide 10 mg/ml injection (20 sources) Loop Diuretic Start: 10-22-2019 furosemide (LA SIX) injection 40 mg Start: 10-11-2019 End: 10-11-2019 furosemide (LASIX) injection 20 mg Start: 10-09-2019 End: 10-09-2019 furosemide (LASIX) injection 40 mg take 1 tablet by [facility] twice daily furosemide (LASIX) 20 mg tablet Take 20 mg by mouth twice daily. Active Comment on above: Take 20 mg by mouth twice daily. 12 hr guaiFENesin 600 mg extended release oral tablet (20 sources) Start: 02-13-2023 take 1 tablet by mouth twice daily guaiFENesin (MUCINEX) 600 mg 12 hr tablet Take 1 tablet by mouth twice daily. 40 tablet 02/13/2023 Active take 1 tablet by candido twice daily as needed guaiFENesin (MUCINEX) 600 MG extended release tablet Take 600 mg by mouth 2 times daily as needed 0 Active Comment on above: [facility] guaifenesin/dextromethorphan (GUAIFENESIN DM ORAL) (20 sources) guaifenesin/dext romethorph an (GUAIFENESIN DM ORAL) Take by mouth. Active guaifenesin/dext romethorphan (GUAIFENESIN DM ORAL) Take by mouth. 0 Active Comment on above: Take by mouth. 1 ml haloperidol 5 mg/ml injection (5 sources) Typical Antipsychotic Start: 01-31-2020 haloperidol lactate (HALDOL) injection 1 mg Start: 10-20-2019 End: 10-20-2019 haloperidol lactate (HALDOL) injection 2 mg Start: 10-19-2019 End: 10-19-2019 haloperidol lactate (HALDOL) injection 1 mg Start: 10-17-2019 End: 10-24-2019 haloperidol lactate (HALDOL) injection 3 mg Start: 10-09-2019 End: 10-09-2019 haloperidol lactate (HALDOL) injection 5 mg 3 ml heparin sodium, porcine 100 unt/ml prefilled syringe (2 sources) Unfractionated Heparin, Anti-coagulant Start: 10-20-2019 heparin flush 100 UNIT/ML injection 250 Units 1 ml hydrALAZINE hydrochloride 20 mg/ml injection (1 source) Arteriolar Vasodilator Start: 02-01-2020 hydrALA ZINE (APRESOLINE) injection 5 mg hydrocortisone acetate 10 mg/ml / pramoxine hydrochloride 10 mg/ml rectal foam (20 sources) Corticosteroid Start: 09-20-2019 pramoxine-hydr ocort isone (PROCTOFOAM-HC) rectal foam 1 Applicator by RECTAL route twice daily. 20 g 1 09/20/2019 Active Comment on above: 1 Applicator by RECT AL route twice daily. iopamidol (ISOVUE-370) 76 % injection 100 mL (1 source) Start: 10-05-2019 iopamidol (ISOVUE-370) 76 % injection 100 mL iopamidol (ISOVUE-370) 76 % injection 75 mL (2 sources) Start: 01-15-2021 iopamidol (ISOVUE-370) 76 % injection 75 mL Start: 10-20-2019 End: 10-20-2019 iopamidol (ISOVUE-370) 76 % injection 75 mL loperamide hydrochloride 2 mg oral tablet (20 sources) Opioid Agonist take 1 tablet by mouth once as needed loperamide HCl (IMODIUM A-D) 2 mg tab Take 2 mg by mouth as needed. Active Comment on above: Take 2 mg by mouth a s needed. melatonin 3 mg oral tablet (1 source) Start: 10-24-2019 melatonin tablet 6 mg metoprolol tartrate 50 mg oral tablet (20 sources) beta-Adrenergic Amelia Start: 12-26-2020 take 0.5 tablet by mouth twice daily metoprolol tartrate, short acting, (LOPRESSOR) 50 mg tablet Take 0.5 tablets by mouth twice daily. Hold for BP 12/26/2020 Active Start: 10-16-2019 take 1 tablet by candido th twice daily metoprolol tartrate (LOPRESSOR) 50 MG tablet Take 1 tablet by mouth 2 times daily 60 tablet 3 10/18/2019 Active Start: 07-16-2015 End: 10-18-2019 take 1 tablet by mouth twice daily metoprolol (LOPRESSOR) 100 MG tablet Indications: Secondary hypertension, unspecified Take 1 tablet by mouth 2 times daily 60 tablet 2 07/16/2015 10/18/2019 Discontinued (Stop Taking at Discharge) Comment on above: Take 0.5 tablets by mouth twice daily. Hold for BP <90/60, HR <55 morphine sulfate (PF) injection 2 mg (1 source) Start: 0 morphine sulfate (PF) injection 2 mg 24 hr nicotine 0.875 mg/hr transdermal system (5 sources) Cholinergic Nicotinic Agonist Start: 0 apply 1 dose transdermal route once daily nicotine (NICODERM CQ) 21 MG/24HR Place 1 patch onto the skin daily 30 patch 0 02/04/2020 Active Start: 01-31-2020 nicotine (MARYBETH DERM CQ) 21 MG/24HR 1 patch nystatin [id number] unt/ml topical cream (20 sources) Polyene Antifungal nystatin (MYC OSTATIN) cream Apply to affected area twice daily. Active Comment on above: Apply to affected ar ea twice daily. omeprazole 40 mg delayed release oral capsule (20 sources) Proton Pump Inhibitor Start: 1 take 1 capsule by mouth once daily omeprazole (PRILOSEC) 40 mg capsule Take 1 capsule by mouth once daily. 90 capsule 2 07/09/2020 Active Comment on above: Take 1 capsule by [facility] once daily. ondansetron 8 mg oral tablet (20 sources) Serotonin-3 Receptor Antagonist Start: 4 take 1 tablet by mouth every eight hours as needed ondansetron (ZOFRAN) 8 mg tablet Take 1 tablet by mouth every 8 hours as needed for nausea/vomiting. 90 tablet 5 09/11/2023 Active Start: 01-05-2021 End: 01-05-2021 ondansetron (ZOFRAN) injecti on 4 mg Start: 03-19-2018 End: 09-11-2023 take 1 tablet by mouth every eight hours as needed ondansetron (ZOFRAN) 4 mg tablet Take 1 tablet by mouth every 8 hours as needed for Nausea/Vomiting. 20 tablet 03/19/2018 09/11/2023 Discontinued Comment on above: Take 1 tablet by candido th every 8 hours as needed for Nausea/Vomiting. oxyCODONE hydrochloride 5 mg oral tablet (2 sources) Opioid Agonist Start: 02-02-20 End: 02-06-20 20 take 1 tablet by mouth every eight hours as needed for pain oxyCODONE (ROXICODONE) 5 MG immediate release tablet Indications: Contusion of right knee, initial encounter Take 1 tablet by mouth every 8 hours as needed for Pain for up to 3 days. 9 tablet 0 02/03/2020 02/06/2020 Active pantoprazole 40 mg delayed release oral tablet (20 sources) Proton Pump Inhibitor Start: 10-08-19 24 take 1 tablet by mouth once daily pantoprazole DR (PROTONIX) 40 mg tablet Take 1 tablet by mouth once daily. 30 tablet 11 10/08/2023 Active Start: 01-28-2020 take 40 mg by mouth once daily 40 mg, Oral, DAILY, First dose on 01/28/20 at 0900 Do not crush or break. Start: 11-05-2019 take 40 mg by mouth once daily 40 mg, Oral, DAILY, First dose on 11/05/19 at 0900 Do not crush or break. Start: 07-10-2015 End: 10-07-2023 take 1 tablet by mouth once daily pantoprazole (PROTONIX) 40 MG tablet Indications: Gastroesophageal reflux disease without esophagitis Take 1 tablet by mouth daily 30 tablet 2 07/10/2015 Active Comment on above: Take 40 mg by mouth once daily. PARoxetine hydrochloride 40 mg oral tablet (20 sources) Serotonin Reuptake Inhibitor Start: 0 take 1 tablet by mouth once daily PARoxetine (PAXIL) 40 mg tablet Take 1 tablet by mouth once daily. 30 tablet 5 12/12/2019 Active Start: 11-05-2019 take 30 mg by mouth once daily in the morning 30 mg, Oral, EVERY MORNING, First dose on 11/05/19 at 0900 Start: 03-21-2015 take 1 tablet by candido th once daily in the morning PARoxetine (PAXIL) 30 MG tablet Take 30 mg by mouth every morning 0 03/21/2015 Active Comment on above: Take 1 tablet by candido th once daily. polyethylene glycol 3350 16352 mg powder for oral solution (20 sources) Osmotic Laxative Start: 017 End: take 1 dose by mouth once daily polyethylene glycol 3350 (MIRALAX, GLYCOLAX) 17 gram packet Take 1 Packet by mouth once daily. 30 Packet 04/22/2017 Active Comment on above: Take 1 Packet by candido th once daily. pravastatin sodium 10 mg oral tablet (20 sources) HMG-CoA Reductase Inhibitor take 1 tablet by mouth once daily pravastatin (PRAVACHOL) 10 mg tablet Take 10 mg by mouth once daily. Active Comment on above: Take 10 mg by mouth once daily. 2 ml prochlorperazine 5 mg/ml injection (1 source) Phenothiazine Start: prochlorperazine (COMPAZINE) injection 10 mg Promethazine (10 sources) Phenothiazine Start: promethazine (PHENERGAN) tablet 12.5 mg Start: 11-04-2019 promethazine ( PHENERGAN) tablet 12.5 mg Start: 10-03-2019 promethazine ( PHENERGAN) tablet 12.5 mg Start: 06-08-2015 End: 10-18-2019 promethazine (PHENERGAN) inj ection 25 mg Start: 03-26-2015 take 1 tablet by candido th every six hours as needed for nausea promethazine (PHENERGAN) 25 MG tablet Indications: Periumbilical abdominal pain Take 1 tablet by mouth every 6 hours as needed for Nausea 90 tablet 0 03/26/2015 Active QUEtiapine 50 mg oral tablet (20 sources) Atypical Antipsychotic Start: 02-07-2020 take 1 tablet by mouth once daily at bedtime QUEtiapine (SEROQUEL) 50 mg tablet Take 1 tablet by mouth daily at bedtime. 30 tablet 02/07/2020 Active Start: 01-30-2020 End: 01-30-2020 QUEtiapine (SEROQUEL) tablet 12.5 mg Start: 10-24-2019 QUEtiapine (SE ROQUEL) tablet 12.5 mg Start: 10-09-2019 QUEtiapine (SE ROQUEL) tablet 25 mg QUEtiapine (SERO QUEL) 25 MG tablet Take 12.5 mg by mouth daily 0 Active Comment on above: Take 1 tablet by candido th daily at bedtime. 3 ml sodium chloride 9 mg/ml injection (20 sources) Start: 01-15-2021 sodium chloride flush 0.9 % injection 10 mL Start: 01-15-2021 sodium chlorid e flush 0.9 % injection 10 mL Start: 01-15-2021 0.9 % sodium c hloride infusion Start: 01-15-2021 sodium chlorid e flush 0.9 % injection 10 mL Start: 01-05-2021 0.9 % sodium c hloride infusion Start: 01-05-2021 sodium chlorid e flush 0.9 % injection 10 mL Start: 01-05-2021 End: 01-05-2021 0.9 % sodium chloride IV olga lidia us 3,129 mL Start: 01-27-2020 10 mL, Intrave nous, EVERY 12 HOURS SCHEDULED (2 times per day), First dose on Thu01/27/20 at 2312 Start: 01-27-2020 take 10 mL intraveno us route once as needed 10 mL, Intravenous, PRN, Line Care, After every IV line use, Starting Thu01/27/20 at 2311 Start: 01-27-2020 End: 01-27-2020 0.9 % sodium chloride bolus Start: 11-30-2019 sodium chlorid e (NaCl) 0.9% injection solution Inject 10 mL intravenously once daily. 10ml before and after dose, 10ml before lab draw, 20ml after lab draw, up to 30ml for sluggish IV, 10ml between bag changes and 10ml daily for maintenance 11/30/2019 Active Start: 11-04-2019 10 mL, Intrave nous, EVERY 12 HOURS SCHEDULED (2 times per day), First dose on Thu11/04/19 at 2130 Start: 11-04-2019 take 10 mL intraveno us route once as needed 10 mL, Intravenous, PRN, Line Care, After every IV line use, Starting Thu11/04/19 at 2108 Start: 10-18-2019 End: 10-18-2019 0.9 % sodium chloride infusi on Start: 10-18-2019 End: 10-18-2019 0.9 % sodium chloride infusi on Start: 10-09-2019 End: 10-10-2019 sodium chloride nebulizer 0. 9 % solution 3 mL Start: 10-08-2019 End: 10-09-2019 sodium chloride (Inhalant) 3 % nebulizer solution 2 mL Start: 10-03-2019 sodium chlorid e flush 0.9 % injection 10 mL Start: 10-03-2019 End: 10-07-2019 0.9 % sodium chloride infusi on Comment on above: Inject 10 mL intrave nously once daily. 10ml before and after dose, 10ml before lab draw, 20ml after lab draw, up to 30ml for sluggish IV, 10ml between bag changes and 10ml daily for maintenance sodium chloride flush 0.9 % injection 3 mL (2 sources) Start: 12-18-2020 sodium chloride flush 0.9 % injection 3 mL Start: 11-04-2019 sodium chlorid e flush 0.9 % injection 3 mL valproate (DEPACON) 250 mg i n dextrose 5 % 100 mL IVPB (1 source) Start: 10-20-2019 valproate (DEP ACON) 250 mg in dextrose 5 % 100 mL IVPB Completed/Discontinued Medications Medication Drug Class(es) Dates Sig (Normalized) Sig (Original) acetaminophen 325 mg oral tablet (20 sources) Start: 11-17-2022 End: 11-17-2022 acetaminophen (Tylenol) tablet 650 mg Start: 01-27-2020 acetaminophen (TYLENOL) tablet 650 mg Start: 11-04-2019 acetaminophen (TYLENOL) tablet 650 mg Start: 10-03-2019 acetaminophen (TYLENOL) tablet 650 mg acetaminophen 32 5 mg cap Take by mouth. Active take 2 tablets by [facility] every twelve hours as needed for pain acetaminophen (TYLENOL) 500 MG tablet Take 1,000 mg by mouth every 12 hours as needed for Pain 0 Active Comment on above: Take by mouth. acetaminophen 250 mg / aspirin 250 mg oral tablet (3 sources) Platelet Aggregation Inhibitor, Nonsteroidal Anti-inflammatory Drug End: 02-03-20 take 2 tablets by mouth every six hours as needed Acetaminophen-Aspiri n Buffered (EXCEDRIN BACK & BODY) 250-250 MG TABS Take 2 tablets by mouth every 6 hours as needed 0 02/03/2020 Discontinued (Stop Taking at Discharge) acetaminophen 325 mg / oxyCODONE hydrochloride 5 mg oral tablet (20 sources) Opioid Agonist Start: 05-24-20 End: 11-14-19 25 take 1 tablet by mouth every six hours oxyCODONE-acetaminop hen (PERCOCET) 5-325 mg tablet 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 120 tablet 09/16/2024 10/14/2024 Discontinued Start: 12-30-2023 End: 05-22-2024 take 1 tablet by mouth every six hours oxyCODONE-acetaminophen (PERCOCET) 5-325 mg tablet 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 120 tablet 03/25/2024 04/22/2024 Discontinued Start: 10-28-2023 End: 12-27-2023 take 1 tablet by mouth every six hours oxyCODONE-acetaminophen (PERCOCET) 5-325 mg tablet 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 120 tablet 0 11/27/2023 12/27/2023 Active Start: 07-01-2023 End: 10-25-2023 take 1 tablet by mouth every six hours oxyCODONE-acetaminophen (PERCOCET) 5-325 mg tablet 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 120 tablet 0 09/25/2023 10/25/2023 Active Start: 03-30-2023 End: 05-29-2023 take 1 tablet by mouth every six hours oxyCODONE-acetaminophen (PERCOCET) 5-325 mg tablet 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 120 tablet 0 04/29/2023 05/29/2023 Active Start: 01-01-2023 End: 02-28-2023 take 1 tablet by mouth every six hours oxyCODONE-acetaminophen (PERCOCET) 5-325 mg tablet Indications: Infection associated with internal right knee prosthesis, subsequent encounter Take 1 tablet by mouth every 6 hours for 28 days. 112 tablet 0 01/31/2023 02/28/2023 Active Start: 10-10-2022 End: 10-30-2022 take 1 tablet by mouth every six hours oxyCODONE-acetaminophen (PERCOCET) 5-325 mg tablet Indications: Infection associated with internal right knee prosthesis, subsequent encounter Take 1 tablet by mouth every 6 hours for 20 days. 80 tablet 0 10/10/2022 10/30/2022 Active Start: 08-29-2022 End: 09-28-2022 take 1 tablet by mouth every six hours oxyCODONE-acetaminophen (PERCOCET) 5-325 mg tablet 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 120 tablet 0 08/29/2022 09/28/2022 Active Start: 08-12-2022 End: 08-29-2022 take 1 tablet by mouth four times daily as needed for pain oxyCODONE-acetaminophen (PERCOCET) 5-325 mg tablet Indications: Infection associated with internal right knee prosthesis, subsequent encounter Take 1 tablet by mouth four times daily as needed for pain. 120 tablet 0 08/12/2022 08/29/2022 Discontinued Start: 04-26-2022 End: 07-29-2022 take 1 tablet by mouth four times daily as needed for pain oxyCODONE-acetaminophen (PERCOCET) 5-325 mg tablet Indications: Infection associated with internal right knee prosthesis, subsequent encounter Take 1 tablet by mouth four times daily as needed for pain. 120 tablet 05/13/2022 07/29/2022 Discontinued Start: 01-07-2022 End: 03-17-2022 take 1 tablet by mouth four times daily as needed for pain oxyCODONE-acetaminophen (PERCOCET) 5-325 mg tablet Indications: Infection associated with internal right knee prosthesis, subsequent encounter Take 1 tablet by mouth four times daily as needed for pain. 120 tablet 0 03/17/2022 Active Start: 10-21-2021 End: 11-19-2021 take 1 tablet by mouth four times daily as needed for pain oxyCODONE-acetaminophen (PERCOCET) 5-325 mg tablet Indications: Infection associated with internal right knee prosthesis, subsequent encounter Take 1 tablet by mouth four times daily as needed for pain. 120 tablet 0 11/19/2021 Active Start: 09-13-2021 take 1 tablet by candido th four times daily as needed for pain oxyCODONE-acetaminophen (PERCOCET) 5-325 mg tablet Indications: Infection associated with internal right knee prosthesis, subsequent encounter Take 1 tablet by mouth four times daily as needed for pain. 120 tablet 0 09/13/2021 Active Start: 08-09-2021 take 1 tablet by candido th four times daily as needed for pain oxyCODONE-acetaminophen (PERCOCET) 5-325 mg tablet Indications: Infection associated with internal right knee prosthesis, subsequent encounter Take 1 tablet by mouth four times daily as needed for pain. 120 tablet 0 08/09/2021 Active Start: 01-15-2021 End: 01-15-2021 oxyCODONE-acetaminophen (PER COCET) 5-325 MG per tablet 1 tablet Start: 12-18-2020 End: 12-18-2020 oxyCODONE-acetaminophen (PER COCET) 5-325 MG per tablet 1 tablet take 1 tablet by candido th every eight hours as needed for pain oxyCODONE-acetaminophen (PERCOCET) 5-325 MG per tablet Take 1 tablet by mouth every 8 hours as needed for Pain. 0 Active Comment on above: Take 1 tablet by candido th four times daily as needed for pain. Take 1 tablet by candido th every 6 hours for 30 days. Take 1 tablet by candido th every 6 hours for 20 days. Take 1 tablet by candido th every 6 hours for 10 days. Take 1 tablet by candido th every 6 hours for 28 days. 20 ml albumin human, jail 250 mg/ml injection (2 sources) Human Serum Albumin Start: 10-09-2019 End: 10-09-2019 albumin human 25 % IV solution 50 g Start: 10-09-2019 End: 10-09-2019 albumin human 25 % IV soluti on amitriptyline hydrochloride 100 mg oral tablet (1 source) Tricyclic Antidepressant Start: 12-05-2014 End: 10-18-2019 take 1 tablet by mouth twice daily amitriptyline (ELAVIL) 100 MG tablet Take 100 mg by mouth 2 times daily 0 12/05/2014 10/18/2019 Discontinued (Stop Taking at Discharge) amLODIPine 10 mg oral tablet (1 source) Dihydropyridine Calcium Channel Amelia Start: 06-27-2015 End: 10-18-2019 take 1 tablet by mouth once daily amLODIPine (NORVASC) 10 MG tablet Take 1 tablet by mouth daily 30 tablet 2 06/27/2015 10/18/2019 Discontinued (Stop Taking at Discharge) ampicillin-sulbacta m (UNASYN) 3 g in sodium chloride 0.9 % 100 mL IVPB (2 sources) Start: 10-06-2019 End: 10-10-2019 ampicillin-sulbact am (UNASYN) 3 g in sodium chloride 0.9 % 100 mL IVPB Start: 10-04-2019 End: 10-06-2019 ampicillin-sulbactam (UNASYN ) 3 g in sodium chloride 0.9 % 100 mL IVPB ampicillin-sulbactam (UNASYN ) 3 g ivpb minibag (2 sources) Start: 10-20-2019 End: 10-24-2019 ampicillin-sulbactam (UNASYN ) 3 g ivpb minibag Start: 10-18-2019 End: 10-19-2019 ampicillin-sulbactam (UNASYN ) 3 g ivpb minibag Blood Pressure Monitoring (B -D ASSURE BPM/AUTO ARM CUFF) MISC (3 sources) Start: 06-27-2015 End: 02-03-2020 Blood Pressure Monitoring (B -D ASSURE BPM/AUTO ARM CUFF) MISC Use as directed to monitor BP 1 each 0 06/27/2015 02/03/2020 Discontinued (Stop Taking at Discharge) Start: 06-27-2015 Blood Pressure Monitoring (B-D ASSURE BPM/AUTO ARM CUFF) MISC Use as directed to monitor BP 1 each 0 06/27/2015 Active calcium chloride 0.0014 meq/ ml / potassium chloride 0.004 meq/ml / sodium chloride 0.103 meq/ml / sodium lactate 0.028 meq/ml injectable solution (2 sources) Start: 01-15-2021 End: 01-15-2021 lactated ringers bolus Start: 10-03-2019 End: 10-03-2019 lactated ringers bolus calcium gluconate 1 g in dextrose 5 % 100 mL IVPB (1 source) Start: 10-07-2019 End: 10-07-2019 calcium gluconate 1 g in dextrose 5 % 100 mL IVPB calcium gluconate 4 g in dextrose 5 % 100 mL IVPB (2 sources) Start: 10-05-2019 End: 10-05-2019 calcium gluconate 4 g in dextrose 5 % 100 mL IVPB Start: 10-04-2019 End: 10-04-2019 calcium gluconate 4 g in dex trose 5 % 100 mL IVPB cefepime (MAXIPIME) 2000 mg IVPB minibag (1 source) Start: 01-15-2021 End: 01-15-2021 cefepime (MAXIPIME) 2000 mg IVPB minibag cefTRIAXone (ROCEPHIN) 1 g IVPB in NS 50ml minibag (1 source) Start: 01-27-2020 End: 01-27-2020 cefTRIAXone (ROCEPHIN) 1 g IVPB in NS 50ml minibag cefTRIAXone sodium 1 g in sodium chloride 0.9 % 100 mL IVPB (add-vantage) (1 source) Start: 01-28-2020 End: 01-30-2020 cefTRIAXone sodium 1 g in sodium chloride 0.9 % 100 mL IVPB (add-vantage) chlorhexidine gluconate 1.2 mg/ml mouthwash (2 sources) Start: 10-08-2019 End: 10-12-2019 chlorhexidine (PERIDEX) 0.12 % solution 15 mL 50 ml clindamycin 12 mg/ml injection (1 source) Lincosamide Antibacterial Start: 12-18-2020 End: 12-18-2020 clindamycin (CLEOCIN) 600 mg in dextrose 5 % 50 mL IVPB 1 ml dexamethasone phosphate 4 mg/ml injection (3 sources) Corticosteroid Start: 10-10-2019 End: 10-13-2019 dexamethasone (DECADRON) injection 4 mg Start: 10-09-2019 End: 10-09-2019 dexamethasone (DECADRON) inj ection 4 mg dexmedetomidine HCl in NaCl (PRECEDEX) 400 mcg in 100 mL infusion (2 sources) Start: 10-08-2019 End: 10-12-2019 dexmedetomidine HCl in NaCl (PRECEDEX) 400 mcg in 100 mL infusion Start: 10-04-2019 End: 10-08-2019 dexmedetomidine HCl in NaCl (PRECEDEX) 400 mcg in 100 mL infusion diazePAM 5 mg oral tablet (20 sources) Benzodiazepine Start: 05-24-2024 End: 11-13-2024 take 1 tablet by mouth twice daily diazePAM (VALIUM) 5 mg tablet Indications: Chronic anxiety Take 1 tablet by mouth two times a day for 30 days. 60 tablet 09/16/2024 10/14/2024 Discontinued Start: 02-26-2024 End: 05-22-2024 take 1 tablet by mouth twice daily diazePAM (VALIUM) 5 mg tablet Indications: Chronic anxiety Take 1 tablet by mouth two times a day for 30 days. 60 tablet 03/24/2024 04/21/2024 Discontinued Start: 12-30-2023 End: 01-29-2024 take 1 tablet by mouth twice daily diazePAM (VALIUM) 5 mg tablet Indications: Chronic anxiety Take 1 tablet by mouth two times a day for 30 days. 60 tablet 12/30/2023 01/29/2024 Active Start: 10-28-2023 End: 12-27-2023 take 1 tablet by mouth twice daily diazePAM (VALIUM) 5 mg tablet Indications: Chronic anxiety Take 1 tablet by mouth two times a day for 30 days. 60 tablet 0 11/27/2023 12/27/2023 Active Start: 07-30-2023 End: 10-25-2023 take 1 tablet by mouth twice daily diazePAM (VALIUM) 5 mg tablet Indications: Chronic anxiety Take 1 tablet by mouth two times a day for 30 days. 60 tablet 0 09/25/2023 10/25/2023 Active Start: 03-30-2023 End: 05-29-2023 take 1 tablet by mouth twice daily diazePAM (VALIUM) 5 mg tablet Indications: Chronic anxiety Take 1 tablet by mouth two times a day for 30 days. 60 tablet 0 04/29/2023 05/29/2023 Active Start: 01-01-2023 End: 02-28-2023 take 1 tablet by mouth twice daily diazePAM (VALIUM) 5 mg tablet Indications: Chronic anxiety Take 1 tablet by mouth twice daily for 28 days. 56 tablet 0 01/31/2023 02/28/2023 Active Start: 10-01-2022 End: 10-31-2022 take 1 tablet by mouth twice daily diazePAM (VALIUM) 5 mg tablet Indications: Chronic anxiety Take 1 tablet by mouth twice daily for 30 days. 60 tablet 0 10/01/2022 10/31/2022 Active Start: 07-02-2022 End: 08-28-2022 take 1 tablet by mouth twice daily diazePAM (VALIUM) 5 mg tablet Indications: Chronic anxiety Take 1 tablet by mouth twice daily for 30 days. 60 tablet 0 07/29/2022 08/28/2022 Active Start: 04-26-2022 End: 06-25-2022 take 1 tablet by mouth twice daily diazePAM (VALIUM) 5 mg tablet Indications: Chronic anxiety Take 1 tablet by mouth twice daily for 30 days. 60 tablet 0 06/19/2022 06/25/2022 Discontinued Start: 03-17-2022 End: 04-16-2022 take 1 tablet by mouth twice daily diazePAM (VALIUM) 5 mg tablet Indications: Chronic anxiety Take 1 tablet by mouth twice daily for 30 days. 60 tablet 0 03/17/2022 04/16/2022 Active Start: 01-07-2022 End: 03-07-2022 take 1 tablet by mouth twice daily diazePAM (VALIUM) 5 mg tablet Indications: Chronic anxiety Take 1 tablet by mouth twice daily for 30 days. 60 tablet 0 02/05/2022 03/07/2022 Active Start: 12-03-2021 End: 01-02-2022 take 1 tablet by mouth twice daily diazePAM (VALIUM) 5 mg tablet Indications: Chronic anxiety Take 1 tablet by mouth twice daily for 30 days. 60 tablet 0 12/03/2021 01/02/2022 Active Start: 10-29-2021 End: 11-28-2021 take 1 tablet by mouth twice daily diazePAM (VALIUM) 5 mg tablet Indications: Chronic anxiety Take 1 tablet by mouth twice daily for 30 days. 60 tablet 0 10/29/2021 11/28/2021 Active Start: 09-27-2021 End: 11-21-2021 take 1 tablet by mouth every twelve hours as needed diazePAM (VALIUM) 5 mg tablet Indications: Chronic anxiety Take 1 tablet by mouth every 12 hours as needed for up to 30 days. 60 tablet 0 10/22/2021 10/29/2021 Discontinued Start: 08-26-2021 End: 09-25-2021 take 1 tablet by mouth every twelve hours as needed diazePAM (VALIUM) 5 mg tablet Indications: Chronic anxiety Take 1 tablet by mouth every 12 hours as needed for up to 30 days. 60 tablet 0 08/26/2021 09/25/2021 Active Start: 02-03-2020 End: 02-05-2020 take 0.5 tablet by mouth every eight hours as needed for anxiety diazePAM (VALIUM) 10 MG tablet Indications: Benzodiazepine dependence (HCC) Take 0.5 tablets by mouth every 8 hours as needed for Anxiety for up to 2 days. 3 tablet 0 02/03/2020 02/05/2020 Active Start: 01-31-2020 diazePAM (CHASITY UM) tablet 10 mg Start: 01-30-2020 End: 01-31-2020 diazePAM (VALIUM) tablet 5 m g Start: 11-20-2014 End: 10-18-2019 take 1 tablet by mouth three times daily diazepam (VALIUM) 10 MG tablet Take 10 mg by mouth 3 times daily 0 11/20/2014 10/18/2019 Discontinued (Stop Taking at Discharge) Comment on above: Take 1 tablet by candido every 12 hours as needed for up to 30 days. Take 1 tablet by candido twice daily for 30 days. Take 1 tablet by candido twice daily for 30 days. Do not start before July 02, 2022. Take 1 tablet by [facility] twice daily for 28 days. Take 1 tablet by candido two times a day for 30 days. 20 ml etomidate 2 mg/ml injection (1 source) General Anesthetic Start: 10-03-2019 End: 10-03-2019 etomidate (AMIDATE) injection 2 ml famotidine 10 mg/ml injection (2 sources) Histamine-2 Receptor Antagonist Start: 10-03-2019 End: 10-12-2019 famotidine (PEPCID) injection 20 mg 1 ml HYDROmorphone hydrochloride 1 mg/ml cartridge (1 source) Opioid Agonist Start: 01-15-2021 End: 01-15-2021 HYDROmorphone (DILAUDID) injection 0.5 mg iopamidol (Isovue-370) 76 % injection 75 mL (2 sources) Start: 11-17-2022 End: 11-17-2022 iopamidol (Isovue-370) 76 % injection 75 mL 10 ml lidocaine hydrochloride 10 mg/ml injection (2 sources) Antiarrhythmic, Amide Local Anesthetic Start: 10-21-2019 End: 10-21-2019 lidocaine PF 1 % injection Start: 10-20-2019 End: 10-21-2019 lidocaine PF 1 % injection 5 mL linezolid 600 mg oral tablet (2 sources) Oxazolidinone Antibacterial Start: 10-14-2019 End: 10-16-2019 linezolid (ZYVOX) tablet 600 mg Start: 10-13-2019 End: 10-14-2019 linezolid (ZYVOX) IVPB 600 m g 1 ml LORazepam 2 mg/ml injection (3 sources) Benzodiazepine Start: 10-08-2019 End: 10-12-2019 LORazepam (ATIVAN) injection 1 mg Start: 10-08-2019 End: 10-08-2019 LORazepam (ATIVAN) injection 2 mg 100 ml magnesium sulfate 10 mg/ml injection (2 sources) Start: 10-04-2019 End: 10-14-2019 magnesium sulfate 1 g in dextrose 5% 100 mL IVPB Start: 10-03-2019 End: 10-03-2019 magnesium sulfate 2 g in 50 mL IVPB premix magnesium sulfate 6 g in dextrose 5 % 100 mL IVPB (1 source) Start: 10-23-2019 End: 10-23-2019 magnesium sulfate 6 g in dextrose 5 % 100 mL IVPB 2 ml midazolam 1 mg/ml injection (1 source) Benzodiazepine Start: 10-03-2019 End: 10-08-2019 midazolam (VERSED) injection 1 mg 1 ml morphine sulfate 4 mg/ml injection (7 sources) Opioid Agonist Start: 01-06-2021 End: 01-06-2021 morphine sulfate (PF) injection 2 mg Start: 01-06-2021 End: 01-06-2021 morphine 4 MG/ML injection Start: 01-05-2021 End: 01-05-2021 morphine sulfate (PF) inject ion 4 mg Start: 11-04-2019 morphine sulfa te (PF) injection 2 mg Start: 10-09-2019 End: 10-12-2019 morphine (PF) injection 2 mg Start: 10-09-2019 End: 10-09-2019 morphine (PF) injection 4 mg Start: 10-09-2019 End: 10-09-2019 morphine (PF) 4 MG/ML inject ion 2 ml naloxone hydrochloride 1 mg/ml prefilled syringe (1 source) Opioid Antagonist Start: 10-03-2019 End: 10-03-2019 naloxone (NARCAN) injection 4 mg perflutren lipid microspheres (DEFINITY) injection 1.65 mg (1 source) Start: 10-06-2019 End: 10-09-2019 perflutren lipid microspheres (DEFINITY) injection 1.65 mg piperacillin 4000 mg / tazobactam 500 mg injection (2 sources) Penicillin-class Antibacterial, beta Lactamase Inhibitor Start: 01-05-2021 End: 01-05-2021 piperacillin-tazobacta m (ZOSYN) 4500 mg in dextrose 100 mL IVPB (premix) Start: 10-03-2019 End: 10-04-2019 piperacillin-tazobactam (ZOS YN) 3.375 g in dextrose 50 mL IVPB extended infusion (premix) potassium bicarbonate 20 meq effervescent oral tablet (1 source) Start: 10-08-2019 End: 10-08-2019 potassium bicarb-citric acid (EFFER-K) effervescent tablet 40 mEq microencapsulated potassium chloride 20 meq extended release oral tablet (20 sources) Start: 01-28-2020 End: 01-28-2020 potassium chloride (KLOR-CON M) extended release tablet 20 mEq Start: 01-27-2020 End: 01-28-2020 take 1 tablet by mouth once, then take 0.5 tablet by mouth, then take 0.5 tablet by mouth 40 mEq, Oral, ONCE, 01/27/20 at 2312, For 1 dose Do not crush, chew, or suck on tablet. Tablet may also be broken in half and each half swallowed separately. Start: 11-29-2019 [facility] chloride ER (K-DUR, KLOR-CON) 20 mEq tablet Take 1 tablet by mouth twice daily. 60 tablet 1 11/29/2019 Active Start: 10-21-2019 potassium chlo ride (KLOR-CON M) extended release tablet 40 mEq Start: 10-21-2019 End: 10-21-2019 potassium chloride 10 MEQ/10 0ML IVPB (Peripheral Line) Start: 10-21-2019 End: 10-22-2019 potassium chloride 10 mEq/10 0 mL IVPB (Peripheral Line) Start: 10-19-2019 End: 10-19-2019 potassium chloride (KLOR-CON M) extended release tablet 40 mEq Start: 10-18-2019 End: 10-18-2019 potassium chloride 10 mEq/10 0 mL IVPB (Peripheral Line) Start: 10-14-2019 End: 10-14-2019 potassium chloride (KLOR-CON M) extended release tablet 40 mEq Start: 10-08-2019 End: 10-14-2019 potassium chloride 20 mEq/50 mL IVPB (Central Line) Start: 10-03-2019 End: 10-08-2019 potassium chloride 10 mEq/10 0 mL IVPB (Peripheral Line) Comment on above: Take 1 tablet by candido twice daily. 1000 ml potassium chloride 0.04 meq/ml / sodium chloride 9 mg/ml injection (1 source) Start: 01-27-2020 End: 01-30-2020 0.9% NaCl with KCl 40 mEq infusion pregabalin 150 mg oral capsule (20 sources) Start: 06-29-2023 End: 11-13-2024 take 1 capsule by mouth twice daily pregabalin (LYRICA) 150 mg capsule Indications: MS (multiple sclerosis) (HCC) , Daily headache Take 1 capsule by mouth two times a day for 30 days. 60 capsule 09/16/2024 10/14/2024 Discontinued Start: 09-24-2022 End: 05-29-2023 take 1 capsule by mouth twice daily pregabalin (LYRICA) 150 mg capsule Indications: MS (multiple sclerosis) (HCC) , Daily headache Take 1 capsule by mouth two times a day for 30 days. 60 capsule 0 04/29/2023 05/29/2023 Active Start: 07-02-2022 End: 09-24-2022 take 1 capsule by mouth twice daily pregabalin (LYRICA) 100 mg capsule Indications: Chronic pain of right knee Take 1 capsule by mouth twice daily for 30 days. 60 capsule 0 07/29/2022 09/24/2022 Discontinued Start: 04-26-2022 End: 06-25-2022 take 1 capsule by mouth twice daily pregabalin (LYRICA) 100 mg capsule Indications: Chronic pain of right knee Take 1 capsule by mouth twice daily for 30 days. 60 capsule 0 06/19/2022 06/25/2022 Discontinued Start: 08-02-2021 End: 04-16-2022 take 1 capsule by mouth twice daily pregabalin (LYRICA) 100 mg capsule Indications: Chronic pain of right knee Take 1 capsule by mouth twice daily for 30 days. 60 capsule 0 03/17/2022 04/16/2022 Active Start: 01-31-2020 End: 02-06-2020 take 1 capsule by mouth twice daily pregabalin (LYRICA) 75 MG capsule Indications: Contusion of right knee, initial encounter Take 1 capsule by mouth 2 times daily for 3 days. 6 capsule 0 02/03/2020 Active Comment on above: Take 1 capsule by [facility] twice daily for 30 days. Take 1 capsule by [facility] twice daily for 30 days. Do not start before July 02, 2022. Take 1 capsule by [facility] twice daily for 28 days. Take 1 capsule by [facility] two times a day for 30 days. 100 ml propofol 10 mg/ml injection (5 sources) General Anesthetic Start: 10-10-2019 End: 10-12-2019 propofol injection Start: 10-09-2019 End: 10-09-2019 propofol injection 400 mg Start: 10-09-2019 End: 10-09-2019 propofol 1000 MG/100ML injec tion Start: 10-08-2019 End: 10-08-2019 propofol injection Start: 10-08-2019 End: 10-08-2019 propofol 1000 MG/100ML injec tion racepinephrine 22.5 mg/ml inhalant solution (3 sources) Start: 10-09-2019 End: 10-09-2019 racepinephrine HCl (VAPONEFPRIN) 2.25 % nebulizer solution NEBU Start: 10-09-2019 End: 10-09-2019 racepinephrine HCl (VAPONEFP RIN) 2.25 % nebulizer solution NEBU 11.25 mg rocuronium bromide 10 mg/ml injectable solution (1 source) Nondepolarizing Neuromuscular Amelia Start: 10-03-2019 End: 10-03-2019 rocuronium (ZEMURON) injection 10 ml sodium bicarbonate 84 mg/ml injection (1 source) Start: 10-03-2019 End: 10-03-2019 sodium bicarbonate 8.4 % injection 50 mEq sodium bicarbonate 150 mEq in dextrose 5 % 1,000 mL infusion (1 source) Start: 10-03-2019 End: 10-03-2019 sodium bicarbonate 150 mEq in dextrose 5 % 1,000 mL infusion traMADol hydrochloride 50 mg oral tablet (4 sources) Opioid Agonist Start: 01-28-2020 End: 02-02-2020 traMADol (ULTRAM) tablet 50 mg divalproex sodium 125 mg delayed release oral capsule (20 sources) Mood Stabilizer, Anti-epileptic Agent Start: 01-27-2020 End: 01-31-2020 take 1 dose by mouth three times daily 250 mg, Oral, EVERY 8 HOURS SCHEDULED (3 times per day), First dose on Thu01/27/20 at 2312 Start: 12-12-2019 take 1 capsule by [facility] three times daily valproic acid (DEPAKENE) 250 mg capsule Take 1 capsule by mouth three times daily. 90 capsule 2 12/12/2019 Active Comment on above: Take 1 capsule by [facility] three times daily. vancomycin (VANCOCIN) 1500 mg in dextrose 5 % 250 mL IVPB (2 sources) Start: 10-10-2019 End: 10-12-2019 vancomycin (VANCOCIN) 1500 mg in dextrose 5 % 250 mL IVPB Start: 10-03-2019 End: 10-04-2019 vancomycin (VANCOCIN) 1500 m g in dextrose 5 % 250 mL IVPB vancomycin (VANCOCIN) 2,000 mg in dextrose 5 % 500 mL IVPB (1 source) Start: 10-12-2019 End: 10-13-2019 vancomycin (VANCOCIN) 2,000 mg in dextrose 5 % 500 mL IVPB vancomycin (VANCOCIN) 2,500 mg in dextrose 5 % 500 mL IVPB (1 source) Start: 01-05-2021 End: 01-06-2021 vancomycin (VANCOCIN) 2,500 mg in dextrose 5 % 500 mL IVPB Problems Active Problems Problem Classification Problem Date Documented Date Episodic/Chronic Administrative/socia l admission (20 sources) Repeated prescription; Translations: [Encounter for issue of repeat prescription] Onset: 11-28-2017 11-05-2019 Episodic Anxiety disorders (20 sources) Chronic anxiety; Translations: [Anxiety disorder, unspecified] Chronic Cancer of brain and nervous system (10 sources) Glioma; Translations: [Malignant neoplasm of brain, unspecified] Onset: 02-08-2015 02-08-2015 Chronic Chronic obstructive pulmonary disease and bronchiectasis (1 source) Chronic obstructive pulmonary disease, unspecified; Translations: [Chronic obstructive pulmonary disease, unspecified] Onset: 04-27-2024 Chronic Complication of device; implant or graft (20 sources) Infection of total knee joint prosthesis; Translations: [Infection and inflammatory reaction due to internal right knee prosthesis, initial encounter] Onset: 02-24-2018 11-04-2019 Episodic Delirium, dementia, and amnestic and other cognitive disorders (2 sources) Age-related physical debility; Translations: [Age-related physical debility] Onset: 02-27-2024 Chronic Diseases of white blood cells (1 source) Leukocytosis; Translations: [Leukocytosis, unspecified type] Chronic Esophageal disorders (20 sources) Gastroesophageal reflux disease without esophagitis; Translations: [Gastro-esophageal reflux disease without esophagitis] Onset: 01-16-2017 01-16-2017 Chronic Essential hypertension (20 sources) Hypertensive disorder; Translations: [Essential (primary) hypertension] Onset: 03-26-2015 03-26-2015 Chronic Fluid and electrolyte disorders (1 source) Hypokalemia; Translations: [Hypokalemia] Episodic Headache; including migraine (8 sources) Migraine; Translations: [Migraine, unspecified, not intractable, without status migrainosus] Onset: 12-11-2014 12-11-2014 Chronic Headache; including migraine (20 sources) Headache; Translations: [Chronic nonintractable headache] Onset: 03-26-2015 03-26-2015 Episodic Headache; including migraine (2 sources) Headache; including migraine; Translations: [Headache, unspecified] Onset: 03-16-2022 Infective arthritis and osteomyelitis (except that caused by tuberculosis or sexually transmitted disease) (1 source) Osteomyelitis of vertebra, site unspecified; Translations: [Osteomyelitis of vertebra, site unspecified] Onset: 09-02-2024 Chronic Joint disorders and dislocations; trauma-related (5 sources) Internal derangement of right knee; Translations: [Unspecified internal derangement of right knee] Onset: 12-11-2014 12-11-2014 Chronic Joint disorders and dislocations; trauma-related (3 sources) Internal derangement of right knee; Translations: [Internal derangement of right knee] Onset: 12-11-2014 12-11-2014 Malaise and fatigue (9 sources) Asthenia; Translations: [Weakness] Onset: 01-27-2020 01-27-2020 Episodic Miscellaneous mental health disorders (1 source) Dissociative and conversion disorder, unspecified; Translations: [Dissociative and conversion disorder, unspecified] Onset: 09-30-2024 Chronic Mood disorders (11 sources) Mood disorder; Translations: [Unspecified mood [affective] disorder] Onset: 10-12-2019 10-12-2019 Chronic Multiple sclerosis (20 sources) Multiple sclerosis; Translations: [Multiple sclerosis] Onset: 02-27-2024 12-26-2020 Chronic Nonmalignant breast conditions (1 source) Mastodynia; Translations: [Mastodynia] Episodic Osteoarthritis (20 sources) Osteoarthritis of right knee joint; Translations: [Unilateral primary osteoarthritis, right knee] Onset: 01-12-2017 02-13-2016 Chronic Other aftercare (2 sources) Other long term care social worker (current) drug therapy; Translations: [Other long term care social worker (current) drug therapy] Onset: 06-03-2024 Episodic Other connective tissue disease (20 sources) History of total knee arthroplasty; Translations: [Presence of unspecified artificial knee joint] Onset: 01-28-2017 Resolved: 07-08-2017 01-28-2017 Chronic Other connective tissue disease (20 sources) History of revision of right total knee arthroplasty; Translations: [Presence of right artificial knee joint] Onset: 07-06-2017 07-08-2017 Chronic Other connective tissue disease (2 sources) Swelling of left lower limb; Translations: [Other specified soft tissue disorders] 11-17-2022 Episodic Other diseases of veins and lymphatics (2 sources) Venous insufficiency (chronic) (peripheral); Translations: [VENOUS INSUFF CHRONIC PERIPHERAL] Onset: 01-22-2023 Episodic Other fractures (1 source) Stable burst fracture of T7-T8 vertebra, subsequent encounter for fracture with nonunion; Translations: [Stable burst fracture of T7-T8 vertebra, subsequent encounter for fracture with nonunion] Onset: 09-02-2024 Episodic Other nervous system disorders (1 source) Unable to walk; Translations: [Inability to ambulate due to knee] Chronic Other nervous system disorders (20 sources) Chronic pain syndrome; Translations: [Chronic pain syndrome] Onset: 11-27-2017 11-05-2019 Chronic Other nervous system disorders (1 source) Cognitive communication deficit; Translations: [Cognitive communication deficit] Onset: 09-02-2024 Chronic Other nervous system disorders (2 sources) Other chronic pain; Translations: [Other chronic pain] Onset: 03-16-2022 Chronic Other non-traumatic joint disorders (1 source) Knee pain; Translations: [Chronic pain of right knee] Episodic Other nutritional; endocrine; and metabolic disorders (20 sources) Obese class I; Translations: [Obesity, unspecified] Onset: 11-11-2019 11-11-2019 Chronic Other nutritional; endocrine; and metabolic disorders (2 sources) Adult failure to thrive; Translations: [Adult failure to thrive] Onset: 07-11-2024 Episodic Other skin disorders (1 source) Localized swelling, mass and lump, lower limb, bilateral; Translations: [LOC SWELL MASS LUMP LOW LIMB MARYJO] Onset: 01-22-2023 Episodic Skin and subcutaneous tissue infections (1 source) Cellulitis of right lower limb; Translations: [Cellulitis of right lower limb] Episodic Spondylosis; intervertebral disc disorders; other back problems (20 sources) Prolapsed lumbar intervertebral disc; Translations: [Other intervertebral disc displacement, lumbar region] Onset: 06-01-1983 05-28-2016 Chronic Substance-related disorders (20 sources) Benzodiazepine dependence; Translations: [Misuse of prescription only drugs] Onset: 05-28-2016 01-31-2020 Chronic Unclassified (4 sources) Patient encounter status; Translations: [Palliative care encounter] Onset: 10-20-2019 10-20-2019 Unclassified (2 sources) Contusion of right knee; Translations: [Contusion of right knee] Onset: 02-03-2020 02-03-2020 Urinary tract infections (20 sources) Urinary tract infectious disease; Translations: [Urinary tract infection, site not specified] Onset: 11-05-2019 11-05-2019 Episodic Past or Other Problems Problem Classification Problem Date Documented Da te Episodic/Chronic Aspiration pneumonitis; food/vomitus (9 sources) Aspiration pneumonia; Translations: [Pneumonitis due to inhalation of food and vomit] Onset: 10-25-2019 10-25-2019 Episodic Epilepsy; convulsions (20 sources) Seizure; Translations: [Unspecified convulsions] Onset: 11-05-2019 12-26-2020 Episodic Genitourinary symptoms and ill-defined conditions (20 sources) Dysuria; Translations: [Dysuria] Onset: 12-19-2020 12-26-2020 Episodic Infective arthritis and osteomyelitis (except that caused by tuberculosis or sexually transmitted disease) (20 sources) Infective arthritis; Translations: [Pyogenic arthritis, unspecified] Onset: 11-05-2019 11-05-2019 Episodic Joint disorders and dislocations; trauma-related (20 sources) Dislocation of patellofemoral joint; Translations: [Unspecified dislocation of right patella, initial encounter] Onset: 04-20-2017 Resolved: 04-21-2017 04-21-2017 Episodic Other aftercare (6 sources) Patient encounter status; Translations: [Encounter for palliative care] Onset: 10-20-2019 10-20-2019 Episodic Other aftercare (20 sources) Long-term current use of benzodiazepine; Translations: [Other mcc (current) drug therapy] Onset: 11-28-2017 07-10-2018 Episodic Other aftercare (20 sources) Prescribed medication regimen behavior finding; Translations: [exterminator (current) use of opiate analgesic] Onset: 11-28-2017 11-05-2019 Episodic Other aftercare (1 source) Encounter for therapeutic drug level monitoring; Translations: [Encounter for therapeutic drug level monitoring] Onset: 12-23-2023 Episodic Other circulatory disease (20 sources) Low blood pressure; Translations: [Hypotension, unspecified] Onset: 07-09-2018 07-09-2018 Episodic Other connective tissue disease (20 sources) Disorder of tendon; Translations: [Other specified disorders of synovium and tendon, multiple sites] Onset: 03-24-2017 02-24-2018 Episodic Other connective tissue disease (2 sources) Muscle weakness (generalized); Translations: [Muscle weakness (generalized)] Onset: 02-27-2024 Episodic Other lower respiratory disease (20 sources) Hypoxia; Translations: [Hypoxemia] Onset: 11-05-2019 11-05-2019 Episodic Other nervous system disorders (7 sources) Metabolic encephalopathy; Translations: [Metabolic encephalopathy] Onset: 10-20-2019 Resolved: 10-25-2019 10-25-2019 Chronic Other nervous system disorders (2 sources) Unspecified lack of coordination; Translations: [Unspecified lack of coordination] Onset: 02-27-2024 Episodic Other non-traumatic joint disorders (20 sources) Pain in right knee; Translations: [Pain in joint, lower leg] Onset: 06-06-2016 Resolved: 07-08-2017 Episodic Other upper respiratory infections (3 sources) Sinusitis; Translations: [Chronic sinusitis, unspecified] Onset: 12-11-2014 Resolved: 03-29-2018 03-29-2018 Chronic Other upper respiratory infections (3 sources) Sinusitis; Translations: [Sinusitis] Onset: 12-11-2014 Resolved: 03-29-2018 03-29-2018 Episodic Phlebitis; thrombophlebitis and thromboembolism (20 sources) Acute deep venous thrombosis of right lower extremity; Translations: [Acute embolism and thrombosis of unspecified deep veins of right lower extremity] Onset: 11-26-2017 12-26-2020 Episodic Poisoning by other medications and drugs (16 sources) Intentional drug overdose; Translations: [Drug overdose] Onset: 10-03-2019 10-25-2019 Episodic Pulmonary heart disease (20 sources) H/O: pulmonary embolus; Translations: [Personal history of pulmonary embolism] Onset: 11-26-2017 Resolved: 07-10-2018 11-05-2019 Episodic Residual codes; unclassified (20 sources) Delirium; Translations: [Disorientation, unspecified] Onset: 03-20-2018 03-20-2018 Episodic Respiratory failure; insufficiency; arrest (adult) (20 sources) Acute respiratory failure; Translations: [Acute hypoxemic respiratory failure] Onset: 11-26-2017 10-08-2019 Episodic Sprains and strains (20 sources) Rupture of skeletal muscle; Translations: [Strain of unspecified quadriceps muscle, fascia and tendon, initial encounter] Onset: 08-04-2017 08-04-2017 Episodic Suicide and intentional self-inflicted injury (2 sources) Poisoning by unspecified drugs, medicaments and biological substances, intentional self-harm, initial encounter; Translations: [Poisoning by unspecified drug or medicinal substance] Onset: 10-25-2019 03-16-2022 Episodic Superficial injury; contusion (5 sources) Contusion of right knee; Translations: [Contusion of right knee, initial encounter] Onset: 02-03-2020 02-03-2020 Episodic Unclassified (20 sources) SUMMARY Onset: 04-03-2017 Resolved: 04-17-2017 04-17-2017 Results Test Name Value Interpretation Reference Range [facility] [id number] 10-20-2024 [id number] Next Site of Care Admission Date: 10/17/2024 12:22 PM Patient Name: CHARLIE NGUYEN Location: [address] CARDIAC PCU/[facility] [id number] A Date of : 1955 ------- Placement Information ------- Referral Type:Residential/SNF - Return Referral ID:[id number] Provider Name:[facility] Address 1:[address] [place] [address] [address] Address 2: City:[place] Selection Factors:Returning to Facility State:[place] [facility] [id number] MAR & Discharge med list transmitted to [facility] via [employer] per TCC request. 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 Pickup scheduled for 5pm. [facility] Nursing Note Pt refusing blood draw this am. Pt became verbally abusive to nurse and phlebotomy. Educated pt on reason why blood was going to be drawn. Pt still refuses. Will continue to monitor this shift. Normal [facility] 30on 10-19-2024 30 Problem: Knowledge Deficit Goal: Patient/family/caregi kendy demonstrates understanding of disease process, treatment plan, medications, and discharge instructions Outcome: Progressing Problem: Potential for Compromised Skin Integrity Goal: Skin Integrity is Maintained or Improved Outcome: Progressing Goal: Nutritional status is improving Outcome: Progressing Problem: Urinary Incontinence Goal: Perineal skin integrity is maintained or improved Outcome: Progressing Normal [facility] 30 Problem: Knowledge Deficit Goal: Patient/family/caregi kendy demonstrates understanding of disease process, treatment plan, medications, and discharge instructions Outcome: Progressing Problem: Potential for Compromised Skin Integrity Goal: Skin Integrity is Maintained or Improved Outcome: Progressing Goal: Nutritional status is improving Outcome: Progressing Problem: Urinary Incontinence Goal: Perineal skin integrity is maintained or improved Outcome: Progressing Normal [facility] BASIC METABOLIC PANELon 05-2 Anion gap [Moles/Vol] 9 mmol/L Normal 3-13 [facility] Comment on above: Performed By: #### L [id number] ####Storage Specialist: KWESI SANCHEZ ([id number])[facility] ([facility])[address] [place] [address] Calcium [Mass/Vol] 8.6 mg/dL Low 8.8-10.0 [facility] Comment on above: Performed By: #### L AB15 ####Storage Specialist: KWESI SANCHEZ ([id number])[facility] ([facility])[address] Chloride [Moles/Vol] 101 mmol/L Normal 98-107 [facility] Comment on above: Performed By: #### L AB15 ####Storage Specialist: KWESI SANCHEZ ([id number])[facility] ([facility])[address] CO2 [Moles/Vol] 25 mmol/L Normal 23-[address] [facility] Comment on above: Performed By: #### L AB15 ####Storage Specialist: KWESI SANCHEZ ([id number])[facility] ([facility])[address] Creatinine [Mass/Vol] 0.82 mg/dL Normal 0.57-1.11 [facility] Comment on above: Performed By: #### L AB15 ####Storage Specialist: KWESI SANCHEZ ([id number])[facility] ([facility])[address] [place] [address] [place] GLOMERULAR FILTRATION RATE ML/MIN/1.73 SQ M.PREDICTED 78.0 mL/min/1.73m*2 Normal >60.0 [facility] Comment on above: Result Comment: Calc ulation based on the Chronic Kidney Disease Epidemiology Collaboration (CKD-EPI) equation refit without adjustment for race Performed By: #### L AB15 ####Storage Specialist: KWESI SANCHEZ ([id number])[facility] ([facility])[address] Glucose [Mass/Vol] 107 mg/dL Normal 82-115 [facility] Comment on above: Performed By: #### L AB15 ####Storage Specialist: KWESI SANCHEZ ([id number])[facility] ([facility] Potassium [Moles/Vol] 4.0 mmol/L Normal 3.5-5.1 [facility] Comment on above: Result Comment: [facility] potassium values may be up to 0.5 mmol/L lower than serum values. Performed By: #### L AB15 ####Storage Specialist: KWESI SANCHEZ ([id number])[facility] (SB[facility])[address] [place] [address] [place] Sodium [Moles/Vol] 135 mmol/L Low 136-145 [facility] Comment on above: Performed By: #### L AB15 ####Storage Specialist: KWESI SANCHEZ ([id number])[facility] ([facility])[address] [place] [address] [place] Urea nitrogen [Mass/Vol] 23 mg/dL Normal 9-23 [facility] Comment on above: Performed By: #### L AB15 ####Storage Specialist: KWESI PIKEAGUSTIN ([id number])[facility] (SBHLAB)[address] CBC WITH AUTO DIFFERENTIALon 10-19-2024 Basophils (Bld) [#/Vol] 0.1 10*3/uL Normal 0.0-0.2 [facility] Comment on above: Performed By: #### L [id number] ####Storage Specialist: KWESI SANCHEZ ([id number])[facility] (SBHLAB)[address] Basophils/100 WBC (Bld) 0.5 % Normal 0.0-2.0 [facility] Comment on above: Performed By: #### L [id number] ####Storage Specialist: KWESI PIKEAGUSTIN ([id number])[facility] (SBHLAB)[address] Eosinophils (Bld) [#/Vol] 0.0 10*3/uL Normal 0.0-0.5 [facility] Comment on above: Performed By: #### L [id number] ####Storage Specialist: KWESI SANCHEZ ([id number])[facility] (SB[facility])[address] Eosinophils/100 WBC (Bld) 0.0 % Normal 0.0-6.0 [facility] Comment on above: Performed By: #### L [id number] ####Storage Specialist: KWESI PIKEAGUSTIN ([id number])[facility] (SB[facility])[address] Erythrocyte distribution width (RBC) [Ratio] 14.4 % Normal 11.5-15.0 [facility] Comment on above: Performed By: #### L [id number] ####Storage Specialist: KWESI SANCHEZ ([id number])[facility] (SB[facility])[address] Hematocrit (Bld) [Volume fraction] 42.7 % Normal 35.0-47.0 [facility] Comment on above: Performed By: #### L [id number] ####Storage Specialist: KWESI SANCHEZ ([id number])[facility] ([facility])[address] Hemoglobin (Bld) [Mass/Vol] 13.9 g/dL Normal 11.7-16.0 [facility] Comment on above: Performed By: #### L [id number] ####Storage Specialist: KWESI SANCHEZ ([id number])[facility] [place] ([facility] IMMATURE GRANS % 0.9 % Normal 0.0-2.0 [facility] Comment on above: Performed By: #### L [id number] ####Storage Specialist: KWESI SANCHEZ ([id number])[facility] ([facility])[address] [place] [address] IMMATURE GRANS ABSOLUTE 0.1 10*3/uL High <0.1 [facility] Comment on above: Performed By: #### L [id number] ####Storage Specialist: KWESI SANCHEZ ([id number])[facility] ([facility] [place] [address] Lymphocytes (Bld) [#/Vol] 1.6 10*3/uL Normal 1.0-4.3 [facility] Comment on above: Performed By: #### L [id number] ####Storage Specialist: KWESI SANCHEZ ([id number])[facility] ([facility])[address] [place] [address] Lymphocytes/100 WBC (Bld) 15.1 % Normal 15.0-45.0 [facility] Comment on above: Performed By: #### L [id number] ####Storage Specialist: KWESI SANCHEZ ([id number])[facility] (SBAB)[address] [place] [address] MCH (RBC) [Entitic mass] 32.2 pg Normal 26.0-34.0 [facility] Comment on above: Performed By: #### L [id number] ####Storage Specialist: KWESI SANCHEZ ([id number])[facility] (SB[facility])[address] MCHC 32.6 % Normal 30.5-36.0 [facility] Comment on above: Performed By: #### L [id number] ####Storage Specialist: KWESI SANCHEZ ([id number])[facility] (SB[facility])[address] MCV (RBC) [Entitic vol] 98.8 fL Normal 77.0-99.0 [facility] Comment on above: Performed By: #### L [id number] ####Storage Specialist: KWESI SANCHEZ ([id number])[facility] [place] ([facility])[address] Monocytes (Bld) [#/Vol] 1.5 10*3/uL High 0.0-0.9 [facility] Comment on above: Performed By: #### L [id number] ####Storage Specialist: KWESI SANCHEZ ([id number])[facility] [place] ([facility])[address] Monocytes/100 WBC (Bld) 13.8 % High 5.0-13.0 [facility] Comment on above: Performed By: #### L [id number] ####Storage Specialist: KWESI SANCHEZ ([id number])[facility] (SB[facility])[address] NEUTROPHILS ABSOLUTE 7.4 10*3/uL Normal 1.8-7.5 [facility] Comment on above: Performed By: #### L [id number] ####Storage Specialist: KWESI SANCHEZ ([id number])[facility] [place] ([facility])[address] Neutrophils/100 WBC (Bld) 69.7 % Normal 38.0-82.0 [facility] Comment on above: Performed By: #### L [id number] ####Storage Specialist: KWESI SANCHEZ ([id number])[facility] [place] ([facility])[address] NRBC 0.0 /100 WBCs Normal 0.0-2.0 [facility] Comment on above: Performed By: #### L [id number] ####Storage Specialist: KWESI SANCHEZ ([id number])[facility] [place] ([facility])[address] Platelet mean volume (Bld) [Entitic vol] 9.9 fL Normal 9.0-12.7 [facility] Comment on above: Performed By: #### L [id number] ####Storage Specialist: KWESI SANCHEZ ([id number])[facility] (SB[facility])[address] [place] [address] Platelets (Bld) [#/Vol] 207 10*3/uL Normal 140-440 [facility] Comment on above: Performed By: #### L [id number] ####Storage Specialist: KWESI SANCHEZ ([id number])[facility] (SB[facility])[address] RBC (Bld) [#/Vol] 4.32 10*6/uL Normal 3.80-5.20 [facility] Comment on above: Performed By: #### L [id number] ####Storage Specialist: KWESI SANCHEZ ([id number])[facility] [place] ([facility])[address] [place] [address] WBC (Bld) [#/Vol] 10.6 10*3/uL Normal 3.6-10.7 [facility] Comment on above: Performed By: #### L [id number] ####Storage Specialist: KWESI SANCHEZ ([id number])[facility] [place] ([facility])[address] Nursing Noteon 05-21-2025 Nursing Note Wound Care consulted for Pressure Injury Prevention. Pt's Jacinto score= 15 on 10/19 Pt refused assessment of pressure points at this time, stating, My skin is pretty tough. I'm in pain, could we not? Pt states Heels, Buttocks/coccyx, Back, Elbows, Occiput and ears all intact. Pt denies any pain or discomfort to pressure points. Pt states she is able to turn and reposition herself as needed. Female external catheter suction cannister and tubing noted. Pt states skin to medial thighs and labia are intact. Instructed pt on pressure injury prevention and importance of turning/postioning every 2hrs while in bed and every 15 min while sitting in chair. Verbalized understanding. Discussed with herb counselor. Staff states MASD to gluteal cleft and redness to abdominal folds. Prevention Measures in place, including: King sheet with pillows/wedges, Heels elevated off bed on pillows, Zinc/Moisture Barrier ointment, Waffle chair cushion (obtain for pt once getting out of bed to chair). Skin Care precaution order set in place. Dietitian medical technician assistant involved. PT consult in place. D/W nursing staff. Will continue to follow pt. Please secure chat for any questions or concerns. Tanesha Balderas, [employer] [facility] Progress Noteon 10-19-2024 Progress Note PHYSICAL THERAPY [facility] Name/MRN: Charlie Nguyen ([id number]) Date: 10/19/2024 Chart review complete. RN cleared pt for session. Pt declined to participate in therapy this date d/t increased abdominal cramping and discomfort. Educated on potential for improvement in symptoms with mobility to which pt reported, I'd rather not. Pt reported possible need for having a BM, option of BSC given to which pt continued to report, No thanks, I'd rather just lay here in bed and not move. Will continue to follow and attempt as appropriate and as schedule permits. Tino Jung, PT [facility] Progress Note Nutrition rescreen complete. Pt assigned a level one for nutrition care. [facility] 30on 10-18-2024 30 Problem: Knowledge Deficit Goal: Patient/family/caregi kendy demonstrates understanding of disease process, treatment plan, medications, and discharge instructions Outcome: Progressing Problem: Potential for Compromised Skin Integrity Goal: Skin Integrity is Maintained or Improved Outcome: Progressing Goal: Nutritional status is improving Outcome: Progressing Problem: Urinary Incontinence Goal: Perineal skin integrity is maintained or improved Outcome: Progressing Normal [facility] [id number] 10-18-2024 [id number] -Pt admitted for altered mental status/UTI. -Chart reviewed -Pt is from [facility], he is LTC and a bedhold. -Will not need auth to return. -Tasked BAR MACHINE OPERATOR to send return referral to facility. -Receiving IV ATB -PT ordered and pending at this time -On 4L O2, 2L is her baseline -Left HIPAA compliant VM to daughter for return call to verify discharge plan. -Discharge plan at this time is to return to [facility]. -manager assisted living to follow and assist as needed. Normal [facility] BASIC METABOLIC PANELon 05 Anion gap [Moles/Vol] 11 mmol/L Normal 3-13 [facility] Comment on above: Performed By: #### L AB15 ####Storage Specialist: KWESI SANCHEZ ([id number])[facility] ([facility] [place] [address] Calcium [Mass/Vol] 9.2 mg/dL Normal 8.8-10.0 [facility] Comment on above: Performed By: #### L AB15 ####Storage Specialist: KWESI SANCHEZ ([id number])[facility] ([facility])[address] Chloride [Moles/Vol] 99 mmol/L Normal 98-107 [facility] Comment on above: Performed By: #### L AB15 ####Storage Specialist: KWESI SANCHEZ ([id number])[facility] ([facility])[address] CO2 [Moles/Vol] 24 mmol/L Normal 23-[address] [facility] Comment on above: Performed By: #### L AB15 ####Storage Specialist: KWESI SANCHEZ ([id number])[facility] [place] ([facility])[address] Creatinine [Mass/Vol] 0.85 mg/dL Normal 0.57-1.11 [facility] Comment on above: Performed By: #### L AB15 ####Storage Specialist: KWESI SANCHEZ ([id number])[facility] (SBHLAB)[address] [place] [address] [place] GLOMERULAR FILTRATION RATE ML/MIN/1.73 SQ M.PREDICTED 74.7 mL/min/1.73m*2 Normal >60.0 [facility] Comment on above: Result Comment: Calc ulation based on the Chronic Kidney Disease Epidemiology Collaboration (CKD-EPI) equation refit without adjustment for race Performed By: #### L AB15 ####Storage Specialist: KWESI SANCHEZ ([id number])[facility] ([facility])[address] Glucose [Mass/Vol] 106 mg/dL Normal 82-115 [facility] Comment on above: Performed By: #### L AB15 ####Storage Specialist: KWESI SANCHEZ ([id number])[facility] (HL[facility])[address] Potassium [Moles/Vol] 4.1 mmol/L Normal 3.5-5.1 [facility] Comment on above: Result Comment: [facility] potassium values may be up to 0.5 mmol/L lower than serum values. Performed By: #### L AB15 ####Storage Specialist: KWESI SANCHEZ ([id number])[facility] [facility] [place] ([facility])[address] [place] [address] [place] Sodium [Moles/Vol] 134 mmol/L Low 136-145 [facility] Comment on above: Performed By: #### L [id number] ####Storage Specialist: KWESI SANCHEZ ([phone])[facility] (SBHLAB)[address] [place] [address] [place] Urea nitrogen [Mass/Vol] 22 mg/dL Normal 9-23 [facility] Comment on above: Performed By: #### L [id number] ####Storage Specialist: KWESI SANCHEZ ([phone])[place] (SB[facility])[address] [place] [address] CBC WITH AUTO DIFFERENTIALon 10-18-2024 Erythrocyte distribution width (RBC) [Ratio] 14.4 % Normal 11.5-15.0 [facility] Comment on above: Performed By: #### L [id number], [id number] ####Storage Specialist: KWESI SANCHEZ ([phone])[facility] [place] (SBHLAB)[address] [place] [address] Hematocrit (Bld) [Volume fraction] 47.6 % High 35.0-47.0 [facility] Comment on above: Performed By: #### L [id number], [id number] ####Storage Specialist: KWESI SANCHEZ ([phone])[facility]ITAL[facility] [place] (SBHLAB)[address] [place] [address] Hemoglobin (Bld) [Mass/Vol] 15.3 g/dL Normal 11.7-16.0 [facility] Comment on above: Performed By: #### L [id number], [id number] ####Storage Specialist: KWESI SANCHEZ ([phone])[facility]ITAL[facility] [place] (SB[facility]AB)[address] [place] [address] MCH (RBC) [Entitic mass] 31.9 pg Normal 26.0-34.0 [facility] Comment on above: Performed By: #### L [id number], [id number] ####Storage Specialist: KWESI SANCHEZ ([phone])[facility]ITAL[facility] [place] (SBHLAB)[address] MCHC 32.1 % Normal 30.5-36.0 [facility] Comment on above: Performed By: #### L [id number], [id number] ####Storage Specialist: KWESI SANCHEZ ([phone])[facility] [place] (SBHLAB)[address] MCV (RBC) [Entitic vol] 99.4 fL High 77.0-99.0 [facility] Comment on above: Performed By: #### L [id number], [id number] ####Storage Specialist: KWESI SANCHEZ ([id number])[facility] [place] (SBHLAB)[address] Platelet mean volume (Bld) [Entitic vol] 9.8 fL Normal 9.0-12.7 [facility] Comment on above: Performed By: #### L [id number], [id number] ####Storage Specialist: KWESI SANCHEZ ([phone])[facility]ITAL[facility] [place] (SBHLAB)[address] Platelets (Bld) [#/Vol] 202 10*3/uL Normal 140-440 [facility] Comment on above: Performed By: #### L [id number], [id number] ####Storage Specialist: KWESI SANCHEZ ([phone])[facility]ITAL[facility] [place] (SBHLAB)[address] [place] [address] RBC (Bld) [#/Vol] 4.79 10*6/uL Normal 3.80-5.20 [facility] Comment on above: Performed By: #### L [id number], [id number] ####Storage Specialist: KWESI SANCHEZ ([phone])[facility]ITALMarcos BLACKBURNREHOB[facility] SERVICESN (SBHLAB)[address] [place] [address] WBC (Bld) [#/Vol] 13.9 10*3/uL High 3.6-10.7 [facility] Comment on above: Performed By: #### L [id number], [id number] ####Storage Specialist: KWESI SANCHEZ ([phone])[facility]ITALMarcos BLACKBURNREHOBOTH MCK[facility] SERVICESN (SBHLAB)[address] MANUAL DIFFERENTIAL (CELLAVI PELON)on 10-18-2024 BAND NEUTROPHILS TOTAL PER COUNTED LEUKOCYTES BY MANUAL COUNT 2 Normal [facility] Comment on above: Performed By: #### L [id number], [id number] ####Storage Specialist: KWESI DANIEL ([phone])[facility]A [place] ([facility])[address] [place] [address] [place] BANDS (10*3/UL) IN BLOOD-CELLAVISION 0.3 10*3/uL High <=0.0 [facility] Comment on above: Performed By: #### L [id number], [id number] ####Storage Specialist: KWESI ARMSTRONGFERNANDA ([phone])[facility]ITALA [place] (SB[facility])[address] BASOPHILS TOTAL PER COUNTED LEUKOCYTES BY MANUAL COUNT Normal [facility] Comment on above: Performed By: #### L [id number], [id number] ####Storage Specialist: KWESI ARMSTRONGFERNANDA ([phone])[facility]ITALA [place] ([facility])[address] BLASTS TOTAL PER COUNTED LEUKOCYTES BY MANUAL COUNT Normal [facility] Comment on above: Performed By: #### L [id number], [id number] ####Storage Specialist: KWESI ARMSTRONGFERNANDA ([phone])[facility]A [place] (SB[facility])[address] [place] [address] [place] LUIS CELLS PRESENCE IN BLOOD BY LIGHT MICROSCOPY Moderate Abnormal (none) [facility] Comment on above: Performed By: #### L [id number], [id number] ####Storage Specialist: KWESI PIKEAGUSTIN ([phone])[facility]A [place] ([facility])[address] [place] [address] [place] EOSINOPHILS TOTAL PER COUNTED LEUKOCYTES BY MANUAL COUNT Normal [facility] Comment on above: Performed By: #### L [id number], [id number] ####Storage Specialist: KWESI PIKEAGUSTIN ([phone])[facility]A [place] ([facility])[address] LYMPHOCYTES (10*3/UL) IN BLOOD-CELLAVISION 0.8 10*3/uL Low 1.0-4.3 [facility] Comment on above: Performed By: #### L [id number], [id number] ####Storage Specialist: KWESI DANIEL ([phone])[facility] [place] (SBHLAB)[address] [place] [address] [place] LYMPHOCYTES TOTAL PER COUNTED LEUKOCYTES BY MANUAL COUNT 6 Normal [facility] Comment on above: Performed By: #### L [id number], [id number] ####Storage Specialist: KWESI ARMSTRONGFERNANDA ([phone])[facility]A [place] ([facility])[address] [place] [address] [place] LYMPHOCYTES/100 LEUKOCYTES IN BLOOD-CELLAVISION 6 % Low 15-45 [facility] Comment on above: Performed By: #### L [id number], [id number] ####Storage Specialist: KWESI DANIEL ([phone])[facility]A [place] ([facility])[address] [place] [address] [place] METAMYELOCYTES TOTAL PER COUNTED LEUKOCYTES BY MANUAL COUNT Normal [facility] Comment on above: Performed By: #### L [id number], [id number] ####Storage Specialist: KWESI ARMSTRONGFERNANDA ([phone])[facility] [place] ([facility])[address] [place] [address] [place] MONOCYTES (10*3/UL) IN BLOOD-CELLAVISION 1.3 10*3/uL High 0.0-0.9 [facility] Comment on above: Performed By: #### L [id number], [id number] ####Storage Specialist: KWESI ARMSTRONGFERNANDA ([phone])[facility]A [place] (SB[facility])[address] [place] [address] [place] MONOCYTES TOTAL PER COUNTED LEUKOCYTES BY MANUAL COUNT 9 Normal [facility] Comment on above: Performed By: #### L [id number], [id number] ####Storage Specialist: KWESI ARMSTRONGFERNANDA ([phone])[facility] [place] ([facility])[address] [place] [address] [place] MONOCYTES/100 LEUKOCYTES IN BLOOD-CHARLES 9 % Normal 5-13 [facility] Comment on above: Performed By: #### L [id number], [id number] ####Storage Specialist: KWESI PIKEAGUSTIN ([phone])[facility] [place] ([facility])[address] MYELOCYTES COUNTED BY MANUAL COUNT [facility] Comment on above: Performed By: #### L [id number], [id number] ####Storage Specialist: KWESI SANCHEZ ([phone])[facility] [place] ([facility])[address] NEUTROPHILS BAND FORM/100 LEUKOCYTES IN BLOOD-CELLAVISI 2 % High <=0 [facility] Comment on above: Performed By: #### L [id number], [id number] ####Storage Specialist: KWESI PIKEAGUSTIN ([phone])[facility] [place] ([facility])[address] NEUTROPHILS TOTAL PER COUNTED LEUKOCYTES BY MANUAL COUNT 83 [facility] Comment on above: Performed By: #### L [id number], [id number] ####Storage Specialist: KWESI SANCHEZ ([phone])[facility]A [place] ([facility])[address] POIKILOCYTOSIS (PRESENCE) IN BLOOD BY LIGHT MICROSCOPY Slight Abnormal (none) [facility] Comment on above: Performed By: #### L [id number], [id number] ####Storage Specialist: KWESI SANCHEZ ([phone])[facility]A [place] ([facility])[address] PROMYELOCYTES TOTAL PER COUNTED LEUKOCYTES BY MANUAL COUNT [facility] Comment on above: Performed By: #### L [id number], [id number] ####Storage Specialist: KWESI SANCHEZ ([phone])[facility]A [place] ([facility])[address] RBC MORPHOLOGY IN BLOOD abnormal Normal [facility] Comment on above: Performed By: #### L [id number], [id number] ####Storage Specialist: KWESI SANCHEZ ([phone])[facility] (SBHLAB)[address] SEGMENTED NEUTROPHILS (10*3/UL) IN BLOOD-CELLAVISION 11.8 10*3/uL High 1.8-7.5 [facility] Comment on above: Performed By: #### L [id number], [id number] ####Storage Specialist: KWESI SANCHEZ ([phone])[facility] (SBHLAB)[address] SEGMENTED NEUTROPHILS/100 LEUKOCYTES-CE 83 % High 38-82 [facility] Comment on above: Performed By: #### L [id number], [id number] ####Storage Specialist: KWESI DANIEL ([phone])[facility] (SBHLAB)[address] UNCLASSIFIED CELLS TOTAL PER COUNTED LEUKOCYTES BY MANUAL COUNT [facility] Comment on above: Performed By: #### L [id number], [id number] ####Storage Specialist: KWESIJA SANCHEZ ([phone])[facility] (SBHLAB)[address] VARIANT LYMPHOCYTES TOTAL PER COUNTED LEUKOCYTES BY MANUAL COUNT [facility] Comment on above: Performed By: #### L [id number], [id number] ####Storage Specialist: KWESI SANCHEZ ([phone])[facility] (SBHLAB)[address] Progress Noteon 10-18-2024 Progress Note PHYSICAL THERAPY [facility] Name/MRN: Charlie Nguyen ([id number]) Date: 10/18/2024 Chart review completed. PT assessment attempted, patient currently declining to participate in PT and to attempt OOB mobility this date despite multiple options provided. Unable to encourage patient this date. Will continue to follow and re-attempt as appropriate. Nathaly Javier, PT Normal [facility] BASIC METABOLIC PANELon 05- Anion gap [Moles/Vol] 10 mmol/L Normal 3-13 [facility] Comment on above: Performed By: #### L AB15 #### Storage Specialist: KWESI SANCHEZ ([phone]) [facility] [place] (SBHLAB) [address] Calcium [Mass/Vol] 8.9 mg/dL Normal 8.8-10.0 [facility] Comment on above: Performed By: #### L AB15 #### Storage Specialist: KWESI SANCHEZ ([phone]) [facility]REH[facility]N (SBHLAB) [address] Chloride [Moles/Vol] 100 mmol/L Normal 98-107 [facility] Comment on above: Performed By: #### L AB15 #### Storage Specialist: KWESI SANCHEZ ([phone]) [facility] [place] (SBHLAB) [address] CO2 [Moles/Vol] 24 mmol/L Normal 23-[address] [facility] Comment on above: Performed By: #### L AB15 #### Storage Specialist: KWESI SANCHEZ ([phone]) [facility] [place] (SBHLAB) [address] Creatinine [Mass/Vol] 0.82 mg/dL Normal 0.57-1.11 [facility] Comment on above: Performed By: #### L AB15 #### Storage Specialist: KWESI SANCHEZ ([phone]) [facility]ID[facility] (SBHLAB) [address] [place] [address] [place] GLOMERULAR FILTRATION RATE ML/MIN/1.73 SQ M.PREDICTED 78.0 mL/min/1.73m*2 Normal >60.0 [facility] Comment on above: Result Comment: Calc ulation based on the Chronic Kidney Disease Epidemiology Collaboration (CKD-EPI) equation refit without adjustment for race Performed By: #### L AB15 #### Storage Specialist: KWESI SANCHEZ ([phone]) [facility]ITAL[facility]RE[facility]N (SBHLAB) [address] [place] [address] [place] Glucose [Mass/Vol] 135 mg/dL High 82-115 [facility] Comment on above: Performed By: #### L AB15 #### Storage Specialist: KWESI SANCHEZ ([phone]) [facility] (SBHLAB) [address] Potassium [Moles/Vol] 4.5 mmol/L Normal 3.5-5.1 [facility] Comment on above: Result Comment: [facility] potassium values may be up to 0.5 mmol/L lower than serum values. Performed By: #### L AB15 #### Storage Specialist: KWESI SANCHEZ ([phone]) [facility] (SBHLAB) [address] Sodium [Moles/Vol] 134 mmol/L Low 136-145 [facility] Comment on above: Performed By: #### L AB15 #### Storage Specialist: KWESI SANCHEZ ([phone]) [facility] (SBHLAB) [address] [place] [address] Urea nitrogen [Mass/Vol] 21 mg/dL Normal 9-23 [facility] Comment on above: Performed By: #### L AB15 #### Storage Specialist: KWESI SANCHEZ ([phone]) [facility] (SBHLAB) [address] [place] [address] CBC WITH AUTO DIFFERENTIALon 10-17-2024 Erythrocyte distribution width (RBC) [Ratio] 14.4 % Normal 11.5-15.0 [facility] Comment on above: Performed By: #### L [id number], [id number] ####Storage Specialist: KWESI SANCHEZ ([phone])[facility] (SBHLAB)[address] Hematocrit (Bld) [Volume fraction] 43.4 % Normal 35.0-47.0 [facility] Comment on above: Performed By: #### L [id number], [id number] ####Storage Specialist: KWESI SANCHEZ ([phone])[facility] (SBHLAB)[address] Hemoglobin (Bld) [Mass/Vol] 14.3 g/dL Normal 11.7-16.0 [facility] Comment on above: Performed By: #### L [id number], [id number] ####Storage Specialist: KWESI SANCHEZ ([phone])[facility]ITALMarcos BLACKBURNREHOB[facility] MCK[facility] CARE SERVICESAriel (SBHLAB)[address] MCH (RBC) [Entitic mass] 32.1 pg Normal 26.0-34.0 [facility] Comment on above: Performed By: #### L [id number], [id number] ####Storage Specialist: KWESI SANCHEZ ([phone])[facility] (SBHLAB)[address] MCHC 32.9 % Normal 30.5-36.0 [facility] Comment on above: Performed By: #### L [id number], [id number] ####Storage Specialist: KWESI SANCHEZ ([phone])[facility] (SBHLAB)[address] MCV (RBC) [Entitic vol] 97.3 fL Normal 77.0-99.0 [facility] Comment on above: Performed By: #### L [id number], [id number] ####Storage Specialist: KWESI SANCHEZ ([phone])[facility] (SBHLAB)[address] Platelet mean volume (Bld) [Entitic vol] 10.3 fL Normal 9.0-12.7 [facility] Comment on above: Performed By: #### L [id number], [id number] ####Storage Specialist: KWESI SANCHEZ ([phone])[facility] (SBHLAB)[address] Platelets (Bld) [#/Vol] 209 10*3/uL Normal 140-440 [facility] Comment on above: Performed By: #### L [id number], [id number] ####Storage Specialist: KWESI SANCHEZ ([phone])[facility]ITALMarc[facility] [place] (SBHLAB)[address] RBC (Bld) [#/Vol] 4.46 10*6/uL Normal 3.80-5.20 [facility] Comment on above: Performed By: #### L [id number], [id number] ####Storage Specialist: KWESI SANCHEZ ([phone])[facility]ITALMarc[facility] BLACKBURNREHOB[facility] M[facility] SERVICESN (SBHLAB)[address] [place] [address] WBC (Bld) [#/Vol] 16.1 10*3/uL High 3.6-10.7 [facility] Comment on above: Performed By: #### L [id number], [id number] ####Storage Specialist: KWESI SANCHEZ ([phone])[facility]PITALMarcos CORTEZAriel (SBHLAB)[address] [place] [address] COMPLETE URINALYSIS WITH REF BALAJI TO CULTUREon 10-17-2024 BACTERIA (#/HPF) IN URINE Loaded Abnormal Negative [facility] Comment on above: Performed By: #### L [id number] ####Storage Specialist: KWESI SANCHEZ ([id number])[facility]ITALMarc[facility] CORTEZ (SBHLAB)[address] [place] [address]#### [id number] ####Storage Specialist: KRISTEN DAIGLE ([phone])[facility] (SACLAB)[address] [place] [address] BILIRUBIN, TOTAL PRESENCE IN URINE Negative Normal Negative [facility] Comment on above: Performed By: #### L [id number] ####Storage Specialist: KWESI SANCHEZ ([phone])[facility]ITALMarc[facility]ND[facility] (SBHLAB)[address] [place] [address]#### [id number] ####Storage Specialist: KRISTEN DAIGLE ([phone])[facility] (SACLAB)[address] [place] [address] Clarity (U) Turbid Abnormal Clear [facility] Comment on above: Performed By: #### L [id number] ####Storage Specialist: KWESI SANCHEZ ([phone])[facility]ITALA BARBREHOBOTH MCK[facility] SERVICESN (SBHLAB)[address] [place] [address] [place]#### [id number] ####Storage Specialist: KRISTEN DAIGLE ([id number])[facility] (SACLAB)[address] [place] [address] Color (U) Yellow Normal Lt. Yellow [facility] Comment on above: Performed By: #### L [id number] ####Storage Specialist: KWESI SANCHEZ ([id number])[facility]ITALA BARBREHOBOTH MCK[facility] SERVICESN (SBHLAB)[address]#### [id number] ####Storage Specialist: KRISTEN DAIGLE ([phone])[facility] ([facility])[address] [place] [address] GLUCOSE (MG/DL) IN URINE Normal Normal Normal (<70 ) [facility] Comment on above: Performed By: #### L [id number] ####Storage Specialist: KWESI SANCHEZ ([phone])[facility] (SBHLAB)[address] [place] [address]#### [id number] ####Storage Specialist: KRISTEN DAIGLE ([phone])[facility] ([facility])[address] [place] [address] HEMOGLOBIN PRESENCE IN URINE 1.0 mg/dL Abnormal Negative [facility] Comment on above: Performed By: #### L [id number] ####Storage Specialist: KWESI SANCHEZ ([phone])[facility]ITALA BARBREHOBOTH MCK[facility] SERVICESN (SBHLAB)[address] [place] [address] [place]#### [id number] ####Storage Specialist: KRISTEN DAIGLE ([phone])[facility] ([facility])[address] [place] [address] Ketones Ql (U) Negative Normal Negative [facility] Comment on above: Performed By: #### L [id number] ####Storage Specialist: KWESI SANCHEZ ([phone])[facility]ITALA [facility]BDIGN[facility] (SBHLAB)[address]#### [id number] ####Storage Specialist: KRISTEN DAIGLE ([phone])[facility] ([facility])[address] [place] [address] LEUKOCYTE ESTERASE PRESENCE IN URINE BY TEST STRIP 500 Simon/uL Abnormal Negative [facility] Comment on above: Performed By: #### L [id number] ####Storage Specialist: KWESI SANCHEZ ([phone])[facility]A [facility]BDIGN[facility] (SBHLAB)[address] [place] [address]#### [id number] ####Storage Specialist: KRISTEN DAIGLE ([phone])[facility] ([facility])[address] [place] [address] MUCUS (#/LPF) IN URINE SEDIMENT Few Normal Negative [facility] Comment on above: Performed By: #### L [id number] ####Storage Specialist: KWESI SANCHEZ ([id number])[facility] (SBHLAB)[address] [place] [address]#### [id number] ####Storage Specialist: KRISTEN DAIGLE ([phone])[facility] ([facility])[address] [place] [address] NITRITE PRESENCE IN URINE Positive Abnormal Negative [facility] Comment on above: Performed By: #### L [id number] ####Storage Specialist: KWESI SANCHEZ ([phone])[facility] BARBREHOBOTH MCKINLEY CH[facility] CARE SERVICESAriel (SBHLAB)[address] [place] [address]#### [id number] ####Storage Specialist: KRISTEN DAIGLE ([phone])[facility] ([facility])[address] [place] [address] pH (U) 6.5 [pH] Normal 5.0-8.0 [facility] Comment on above: Performed By: #### L [id number] ####Storage Specialist: KWESI SANCHEZ ([phone])[facility]A BARBREHOBOTH MCK[facility] SERVICESN (SBHLAB)[address] [place] [address]#### [id number] ####Storage Specialist: KRISTEN DAIGLE ([phone])[facility] (SACLAB)[address] [place] [address] Protein (U) [Mass/Vol] 70 mg/dL Abnormal Negative [facility] Comment on above: Performed By: #### L [id number] ####Storage Specialist: KWESI SANCHEZ ([phone])[facility]ITALMarc[facility] [place]APNA (SBHLAB)[address] [place] [address]#### [id number] ####Storage Specialist: KRISTEN DAIGLE ([phone])[facility] ([facility])[address] [place] [address] RBC (#/HPF) IN URINE SEDIMENT 51-100 Abnormal 0-2 [facility] Comment on above: Performed By: #### L [id number] ####Storage Specialist: KWESI SANCHEZ ([phone])[facility] ([facility])[address] [place] [address]#### [id number] ####Storage Specialist: KRISTEN DAIGLE ([phone])[facility] ([facility])[address] [place] [address] Specific gravity (U) [Rel density] 1.022 Normal 1.005-1.030 [facility] Comment on above: Result Comment: LAVON Gong COMMENTS: This specimen has been reflexed to urine culture. Performed By: #### L [id number] ####Storage Specialist: KWESI SANCHEZ ([phone])[facility]ITAL[facility] BLACKBURNREHOB[facility] SERVICESN (SB[facility])[address] [place] [address]#### [id number] ####Storage Specialist: KRISTEN DAIGLE ([phone])[facility] ([facility])[address] [place] [address] SQUAMOUS EPITHELIAL CELLS (#/HPF) IN URINE SEDIMENT 3-5 Normal 3-5 [facility] Comment on above: Performed By: #### L [id number] ####Storage Specialist: KWSEI SANCHEZ ([phone])[facility] (SB[facility])[address]#### [id number] ####Storage Specialist: KRISTEN DAIGLE ([phone])[facility] ([facility])[address] [place] [address] UROBILINOGEN (MG/DL) IN URINE 2 mg/dL Abnormal Normal (0-1) [facility] Comment on above: Performed By: #### L [id number] ####Storage Specialist: KWESI SANCHEZ ([phone])[facility]ID[facility] ([facility])[address] [place] [address]#### [id number] ####Storage Specialist: KRISTEN DAIGLE ([phone])[facility] CENTER ([facility])[address] [place] [address] WBC (LEUKOCYTE) (#/HPF) IN URINE SEDIMENT 51-100 Abnormal 0-5 [facility] Comment on above: Performed By: #### L [id number] ####Storage Specialist: KWESI SANCHEZ ([phone])[facility] (SB[facility])[address] [place] [address]#### [id number] ####Storage Specialist: KRISTEN DAIGLE ([phone])[facility] ([facility])[address] [place] [address] ECG 12-LEADon 10-17-2024 ECG 12-LEAD IMPRESSION: Sinus rhythm Low voltage, precordial leads Nonspecific T abnormalities, lateral leads Electronically Signed On 10-17-2024 14:36:48 EDT by Sulaiman Ricks Normal [facility] ED Nursing Noteon 10-17-2024 ED Nursing Note Pt with intermittent confusion on assessment. Pt able to answer orientation questions as to where she is, and what year it is, however from time to time thinks she is still at home or makes comments about family that has since passed. Daughter at bedside to confirm that these family members are no longer alive and that her comments do not make sense. Normal [facility] ED Nursing Note Pt incontinent of urine and stool. Pt was cleaned up and placed in gown. New pure wick applied and pt aware of need for urine sample. Normal [facility] ED Provider Noteon ED Provider Note EMERGENCY DEPARTMENT ENCOUNTER Pt Name: Charlie Nguyen Birthdate 1955 Date of evaluation: 10/17/2024 ED Provider: Katiuska Nation MD CHIEF COMPLAINT Chief Complaint Patient presents with Fever Altered Mental Status Pt arrived via EMS from nursing facility for low grade fever over the last few days and AMS. Facility stated pt was making comments about her family that had passed that seemed odd. Facility concerned for UTI, as she has hx. Afebrile and alert and oriented during triage. HISTORY OF PRESENT ILLNESS (Location/Symptom, Timing/Onset, Context/Setting, Quality, Duration, Modifying Factors, Severity) Note limiting factors. I wore appropriate PPE for the entirety of this encounter. HPI Charlie Nguyen is a 69 y.o. female who presents to the emergency department with chief complaint of altered mental status and fever. The history is obtained by EMS, who states that the patient has been confused for the past few days, making odd comments about family members who have . They report that her custodial is concerned for urinary tract infection, as she has a history of such. The patient endorses a new cough. She states that she is on 2 L nasal cannula at baseline. She endorses chronic shortness of breath secondary to COPD. Nursing Notes were reviewed. Limitations to history: None Outside historians: EMS REVIEW OF SYSTEMS Review of Systems Pertinent positives and negatives as per HPI. PAST MEDICAL HISTORY Medical History[1] SURGICAL HISTORY Surgical History[2] CURRENT MEDICATIONS Previous Medications No medications on file ALLERGIES Nsaids, Gabapentin, Nitrofurantoin, Nitrofurantoin monohyd macro, Tramadol, Cephalexin, and Hydrocodone-acetamino phen FAMILY HISTORY Family History[3] SOCIAL HISTORY Social History[4] SCREENINGS [place] Coma Scale Best Eye Response: Spontaneous Best Verbal Response: Oriented Best Motor Response: Follows commands Federico Coma Scale Score: 15 PHYSICAL EXAM ED Triage Vitals Temp Heart Rate Resp BP 10/17/24 1230 10/17/24 1230 10/17/24 1230 10/17/24 1230 36.7 ?C (98.1 ?F) 82 20 121/79 SpO2 Temp Source Heart Rate Source Patient Position 10/17/24 1231 10/17/24 1230 10/17/24 1230 -- (!) 92 % Oral Monitor BP Location FiO2 (%) -- -- Physical Exam Vitals and nursing note reviewed. Constitutional: General: She is not in acute distress. Appearance: She is well-developed. Comments: Patient alert and oriented to person, place, time HENT: Head: Normocephalic and atraumatic. Eyes: Conjunctiva/sclera: Conjunctivae normal. Cardiovascular: Rate and Rhythm: Normal rate and regular rhythm. Heart sounds: No murmur heard. Pulmonary: Effort: Pulmonary effort is normal. No respiratory distress. Breath sounds: Normal breath sounds. Musculoskeletal: Cervical back: Neck supple. Skin: General: Skin is warm and dry. Neurological: Mental Status: She is alert. Psychiatric: Mood and Affect: Mood normal. DIAGNOSTIC RESULTS Procedures/EKG: EKG was reviewed by myself. Physician EKG interpretation can be found in [facility] Interpretation per the Radiologist below, if available at the time of this note: XR chest 1 view Final Result No evidence of an acute cardiopulmonary abnormality. Report Dictated on Electronically Signed By: Royer Day MD Electronically Signed Date/Time: 10/17/2024 2:00 PM EDT ED BEDSIDE ULTRASOUND: Performed by ED Physician - none LABS: Labs Reviewed BASIC METABOLIC PANEL - Abnormal Result Value SODIUM 134 (*) POTASSIUM 4.5 CHLORIDE 100 CARBON DIOXIDE 24 UREA NITROGEN 21 CREATININE 0.82 GLUCOSE 135 (*) CALCIUM 8.9 ANION GAP 10 eGFR 78.0 CBC WITH AUTO DIFFERENTIAL - Abnormal Auto WBC 16.1 (*) RBC 4.46 Hemoglobin 14.3 Hematocrit 43.4 MCV 97.3 MCH 32.1 MCHC 32.9 RDW 14.4 Platelets 209 MPV 10.3 MANUAL DIFFERENTIAL (CELLAVISION) - Abnormal RBC Morphology abnormal Poikilocytes Slight (*) Polychromasia Slight (*) Dacryocytes Slight (*) Stomatocytes Slight (*) Neutrophils % 85 (*) Lymphocytes % 4 (*) Monocytes % 11 Absolute Neutrophil Count 13.7 (*) Lymphocytes Absolute 0.6 (*) Monocytes Absolute 1.8 (*) Neutrophils Manual 88 Lymphocytes Manual 4 Monocytes Manual 11 Eosinophils Manual Basophils Manual Bands Manual Metamyelocytes Manual Myelocytes Manual Promyelocytes Manual Blasts Manual Atypical Lymphocytes Manual Unclassified Cells, Manual COMPLETE URINALYSIS WITH REFLEX TO CULTURE - Abnormal Color, Urine Yellow Clarity, Urine Turbid (*) pH, Urine 6.5 Leukocytes, Urine 500 (*) Nitrite, Urine Positive (*) Protein, Urine 70 (*) Glucose, Urine Normal Bilirubin, Urine Negative Ketones, Urine Negative Urobilinogen, Urine 2 (*) Blood, Urine 1.0 (*) RBC, Urine 51-100 (*) WBC, Urine 51-100 (*) Squamous Epithelial, Urine 3-5 Bacteri (more content not included)... Normal [facility] MANUAL DIFFERENTIAL (CELLAVI PELON)on 10-17-2024 BAND NEUTROPHILS TOTAL PER COUNTED LEUKOCYTES BY MANUAL COUNT [facility] Comment on above: Performed By: #### L [id number], [id number] ####Storage Specialist: KWESI SANCHEZ ([phone])[facility] [place] ([facility])[address] [place] [address] BASOPHILS TOTAL PER COUNTED LEUKOCYTES BY MANUAL COUNT [facility] Comment on above: Performed By: #### L [id number], [id number] ####Storage Specialist: KWESI SANCHEZ ([phone])[facility] [place] ([facility])[address] [place] [address] BLASTS TOTAL PER COUNTED LEUKOCYTES BY MANUAL COUNT [facility] Comment on above: Performed By: #### L [id number], [id number] ####Storage Specialist: KWESI SANCHEZ ([phone])[facility] [place] ([facility])[address] [place] [address] DACROCYTES PRESENCE IN BLOOD BY LIGHT MICROSCOPY Slight Abnormal (none) [facility] Comment on above: Performed By: #### L [id number], [id number] ####Storage Specialist: KWESI SANCHEZ ([phone])[facility] [place] ([facility])[address] [place] [address] EOSINOPHILS TOTAL PER COUNTED LEUKOCYTES BY MANUAL COUNT [facility] Comment on above: Performed By: #### L [id number], [id number] ####Storage Specialist: KWESI SANCHEZ ([phone])[facility] [place] ([facility])[address] [place] [address] [place] LYMPHOCYTES (10*3/UL) IN BLOOD-CELLAVISION 0.6 10*3/uL Low 1.0-4.3 [facility] Comment on above: Performed By: #### L [id number], [id number] ####Storage Specialist: KWESI SANCHEZ ([phone])[facility] [place] (SB[facility])[address] LYMPHOCYTES TOTAL PER COUNTED LEUKOCYTES BY MANUAL COUNT 4 Normal [facility] Comment on above: Performed By: #### L [id number], [id number] ####Storage Specialist: KWESI GOODWINCER ([phone])[facility] [place] ([facility])[address] LYMPHOCYTES/100 LEUKOCYTES IN BLOOD-CELLAVISION 4 % Low 15-45 [facility] Comment on above: Performed By: #### L [id number], [id number] ####Storage Specialist: KWESI SANCHEZ ([phone])[facility] [place] ([facility])[address] METAMYELOCYTES TOTAL PER COUNTED LEUKOCYTES BY MANUAL COUNT [facility] Comment on above: Performed By: #### L [id number], [id number] ####Storage Specialist: KWESI SANCHEZ ([phone])[facility] [place] ([facility])[address] [place] [address] [place] MONOCYTES (10*3/UL) IN BLOOD-CELLAVISION 1.8 10*3/uL High 0.0-0.9 [facility] Comment on above: Performed By: #### L [id number], [id number] ####Storage Specialist: KWESI SANCHEZ ([phone])[facility] [place] ([facility])[address] [place] [address] [place] MONOCYTES TOTAL PER COUNTED LEUKOCYTES BY MANUAL COUNT 11 [facility] Comment on above: Performed By: #### L [id number], [id number] ####Storage Specialist: KWESI SANCHEZ ([phone])[facility] [place] ([facility])[address] [place] [address] [place] MONOCYTES/100 LEUKOCYTES IN BLOOD-CHARLES 11 % Normal -13 [facility] Comment on above: Performed By: #### L [id number], [id number] ####Storage Specialist: KWESI SANCHEZ ([phone])[facility] [place] ([facility])[address] [place] [address] [place] MYELOCYTES COUNTED BY MANUAL COUNT Normal [facility] Comment on above: Performed By: #### L [id number], [id number] ####Storage Specialist: KWESI ARMSTRONGJAZMINAGUSTIN ([phone])[facility] [place] ([facility])[address] [place] [address] [place] NEUTROPHILS TOTAL PER COUNTED LEUKOCYTES BY MANUAL COUNT 88 Normal [facility] Comment on above: Performed By: #### L [id number], [id number] ####Storage Specialist: KWESI SANCHEZ ([phone])[facility] [place] ([facility])[address] [place] [address] [place] POIKILOCYTOSIS (PRESENCE) IN BLOOD BY LIGHT MICROSCOPY Slight Abnormal (none) [facility] Comment on above: Performed By: #### L [id number], [id number] ####Storage Specialist: KWESI SANCHEZ ([phone])[facility] [place] ([facility])[address] [place] [address] [place] POLYCHROMASIA IN BLOOD BY LIGHT MICROSCOPY Slight Abnormal (none) [facility] Comment on above: Performed By: #### L [id number], [id number] ####Storage Specialist: KWESI GOODWINCER ([phone])[facility] [place] ([facility])[address] [place] [address] [place] PROMYELOCYTES TOTAL PER COUNTED LEUKOCYTES BY MANUAL COUNT [facility] Comment on above: Performed By: #### L [id number], [id number] ####Storage Specialist: KWESI SANHCEZ ([phone])[facility] [place] ([facility])[address] [place] [address] [place] RBC MORPHOLOGY IN BLOOD abnormal Normal [facility] Comment on above: Performed By: #### L [id number], [id number] ####Storage Specialist: KWESI SANCHEZ ([phone])[facility] [place] ([facility])[address] SEGMENTED NEUTROPHILS (10*3/UL) IN BLOOD-CELLAVISION 13.7 10*3/uL High 1.8-7.5 [facility] Comment on above: Performed By: #### L [id number], [id number] ####Storage Specialist: KWESI SANCHEZ ([phone])[facility] [place] ([facility])[address] [place] [address] [place] SEGMENTED NEUTROPHILS/100 LEUKOCYTES-CE 85 % High 38-82 [facility] Comment on above: Performed By: #### L [id number], [id number] ####Storage Specialist: KWESI SANCHEZ ([phone])[facility] (SB[facility])[address] [place] [address] [place] STOMATOCYTES IN BLOOD BY LIGHT MICROSCOPY Slight Abnormal (none) [facility] Comment on above: Performed By: #### L [id number], [id number] ####Storage Specialist: KWESI SANCHEZ ([phone])[facility] [place] ([facility])[address] UNCLASSIFIED CELLS TOTAL PER COUNTED LEUKOCYTES BY MANUAL COUNT Normal [facility] Comment on above: Performed By: #### L [id number], [id number] ####Storage Specialist: KWESI SANCHEZ ([phone])[facility] ([facility])[address] [place] [address] [place] VARIANT LYMPHOCYTES TOTAL PER COUNTED LEUKOCYTES BY MANUAL COUNT [facility] Comment on above: Performed By: #### L [id number], [id number] ####Storage Specialist: KWESI SANCHEZ ([phone])[facility] ([facility])[address] [place] [address] [place] SARS-COV-2, FLU A/B, AND RSV COMBOon 10-17-2024 SARS-CoV-2 (COVID-19) RNA TANVIR+probe Ql (Unsp spec) SARS-COV-2 Reference Not Detected Not Detected RESPIRATORY SYNCYTIAL VIRUS Reference Not Detected Not Detected INFLUENZA A (CEPHEID) Reference Not Detected Not Detected INFLUENZA B (CEPHEID) Reference Not Detected Not Detected ORDER COMMENTS: Methodology: real-time, RT-PCR The SARS-CoV-2, Flu A/B, and RSV Combo assay is intended for in vitro diagnostic use under the FDA Emergency Use Authorization (EUA). This test has not been FDA cleared or approved. In compliance with this authorization, please visit www.fda.gov/media/620 218/download or www.fda.gov/media/534 277/download to access the applicable information sheets. Normal [facility] Comment on above: Performed By: #### L [id number] #### Storage Specialist: KWESI SANCHEZ ([phone]) [facility] [address] [place] [address] URINE CULTUREon 10-17-2024 Bacteria identified Cx Nom (U) URINE CULTURE Reference Normal urogenital naomi present PROVIDENCIA STUARTII >100,000 CFU/mL Providencia stuartii (A) This organism possesses an ampC beta-lactamase. For serious infections outside of the urinary tract, third generation cephalosporins may not be effective, even if test results indicate the organism is susceptible. Organism: PROVIDENCIA STUARTII Antibiotic ANDREA Interpretation Status Ampicillin R F Ampicillin / Sulbactam 8 ug/ml S F Aztreonam <=1 ug/ml S F Cefazolin >=32 ug/ml R F Cefepime <=0.12 ug/ml S F Ceftriaxone <=0.25 ug/ml S F Ciprofloxacin 1 ug/ml R F Ertapenem <=0.12 ug/ml S F Gentamicin 8 ug/ml R F Levofloxacin 4 ug/ml R F Meropenem <=0.25 ug/ml S F Nitrofurantoin 256 ug/ml R F Piperacillin / Tazobactam <=4 ug/ml S F Trimethoprim / Sulfamethoxazole <=20 ug/ml S F [ S = SUSCEPTIBLE R = RESISTANT I = INTERMEDIATE S-DD = Susceptible-dose dependent NS = Non-susceptible NO = No Interpretation ] Normal [facility] Comment on above: Performed By: #### L [id number] ####Storage Specialist: KWESI SANCHEZ ([phone])[facility] (SBHLAB)[address]#### [id number] ####Storage Specialist: KRISTEN DAIGLE ([phone])[facility] ([facility])[address] [place] [address] Anion gap in Serum or Plasma Ordered By: Royer Reagan on 08-10-2024 Anion gap [Moles/Vol] 13 mmol/L 5-15 [facility] BUN/creatinine ratioOrdered By: Royer Reagan on 08-10-2024 Urea nitrogen/Creatinine [Mass ratio] 24.2 mg/mg High 10-20 [facility] Bilirubin, totalOrdered By: Royer Reagan on 08-10-2024 Bilirubin [Mass/Vol] 0.39 mg/dL 0.00-1.30 [facility] Carbon dioxide, total [Moles /volume] in Central venous bloodOrdered By: Royer Reagan on 08-10-2024 CO2 [Moles/Vol] 22.7 mmol/L 21.0-32.0 [facility] Chloride assayOrdered By: Adam Reagan on 08-10-2024 Chloride [Moles/Vol] 105 mmol/L 98-108 [facility] Erythrocyte distribution wid th (RBC) [Ratio]Ordered By: Royer Reagan on 08-10-2024 Erythrocyte distribution width (RBC) [Entitic vol] 53.2 fL High 35.1-43.9 [facility] Erythrocyte distribution wid th ratioOrdered By: Royer Reagan on 08-10-2024 Erythrocyte distribution width (RBC) [Ratio] 14.4 % 11.6-14.6 [facility] GFR/1.73 sq M.predicted darnell g non-blacks MDRD (S/P/Bld) [Vol rate/Area]Ordered By: Royer Reagan on 08-10-2024 Estimated GFR (MDRD) Non-Af Amer 69 >60 [facility] Comment on above: mL/min/1.73m2 CKD-EP I Creatinine Equation (2020) Hematocrit Auto (Bld) [Volum e fraction]Ordered By: Royre Reagan on 08-10-2024 Hematocrit (Bld) [Volume fraction] 43.0 % 37-47 [facility] Hemoglobin measurementOrdere d By: Royer Reagan on 08-10-2024 Hemoglobin (Bld) [Mass/Vol] 13.9 g/dL 12.0-15.0 [facility] Laboratory - Chemistry and C hemistry - challengeOrdered By: Royer Reagan on 08-10-2024 AST [Catalytic activity/Vol] 23 U/L <32 [facility] MCV (mean corpuscular volume ) determinationOrdered By: Royer Reagan on 08-10-2024 MCV (RBC) [Entitic vol] 99.8 fL High 81-99 [facility] Mean corpuscular hemoglobin (MCH) determinationOrdered By: Royer Reagan on 08-10-2024 MCH (RBC) [Entitic mass] 32.3 pg High 27.0-32.0 [facility] Mean corpuscular hemoglobin concentration (MCHC) determinationOrdered By: Royer Reagan on 08-10-2024 MCHC (RBC) [Mass/Vol] 32.3 g/dL 32-36 [facility] Mean platelet volume determi nationOrdered By: Royer Reagan on 08-10-2024 Platelet mean volume (Bld) [Entitic vol] 9.9 fL 6.2-12.0 [facility] Platelet countOrdered By: Adam Reagan on 08-10-2024 Platelets (Bld) [#/Vol] 189 10*3/uL 150-450 [facility] Potassium (Unsp spec) [Mass/ Vol]Ordered By: Royer Reagan on 08-10-2024 Potassium [Moles/Vol] 4.2 mmol/L 3.3-5.1 [facility] RBC Auto (Bld) [#/Vol]Ordere d By: Royer Reagan on 08-10-2024 RBC (Bld) [#/Vol] 4.31 10*6/uL 4.2-5.4 [facility] Serum creatinine measurement (mass/volume)Ordered By: Royer Reagan on 08-10-2024 Creatinine [Mass/Vol] 0.91 mg/dL 0.70-1.20 [facility] Serum globulin measurementOr dered By: Royer Reagan on 08-10-2024 Globulin (S) [Mass/Vol] 3.3 g/dL 2.2-4.2 [facility] Serum glucose measurement (m ass/volume)Ordered By: Royer Reagan on 08-10-2024 Glucose [Mass/Vol] 118 mg/dL High 70-99 [facility] Serum or plasma alanine leung otransferase (ALT) measurementOrdered By: Royer Reagan on 08-10-2024 ALT [Catalytic activity/Vol] 15 U/L <35 [facility] Serum or plasma albumin tammie urement (mass/volume)Ordered By: Royer Reagan on 08-10-2024 Albumin [Mass/Vol] 3.5 g/dL 3.4-4.8 [facility] Serum or plasma albumin/glob ulin mass ratioOrdered By: Royer Reagan on 08-10-2024 Albumin/Globulin [Mass ratio] 1.1 {ratio} 0.9-2.4 [facility] Serum or plasma alkaline rosey sphatase measurementOrdered By: Royer Reagan on 08-10-2024 ALP [Catalytic activity/Vol] 72 U/L 35-104 [facility] Serum or plasma calcium tammie urement (mass/volume)Ordered By: Royer Reagan on 08-10-2024 Calcium [Mass/Vol] 8.9 mg/dL 7.6-11.0 [facility] Serum or plasma urea nitroge n measurement (mass/volume)Ordered By: Royer Reagan on 08-10-2024 Urea nitrogen [Mass/Vol] 22 mg/dL High 4-19 [facility] Sodium levelOrdered By: Ismael Reagan on 08-10-2024 Sodium [Moles/Vol] 140 mmol/L 133-145 [facility] Total proteinOrdered By: Ori Reagan on 08-10-2024 Protein [Mass/Vol] 6.8 g/dL 5.9-8.4 [facility] White blood cell (WBC) count Ordered By: Royer Reagan on 08-10-2024 WBC (Bld) [#/Vol] 6.2 10*3/uL 4.4-11.0 [facility] Keshia 07-18-2024 CNP Telephone (FPWADS) CHARLIE NGUYEN ([id number]) 1955 F CHT Date Time Provider Department 07/18/24 MORENO OATES During your visit today, we recorded the following information about you: Fadumo Rahman LPN 07/18/2024 10:26 AM Signed Received 07/18/2024 from [facility]. Placed in provider's inbox for review. Route to [place] for scanning. Allergies As of Date: 07/18/2024 Noted Allergy Reaction NSAIDS (NON-STEROIDAL ANTI-INFLAM* 7 8 - GI Upset GABAPENTIN 10/07/2018 8 - GI Upset MACROBID (NITROFURANTOIN MONOHYD/*02/13/2016 4 - Hives TRAMADOL 01/22/2017 15 - Contraindication-Medi mike Pierre* Comments: Drug interaction with amitriptyline - told not to take due to increased seizure risk NORCO (HYDROCODONE-ACETAMIN OPHEN) 08/14/2016 8 - GI Upset Comments: Didn't do anything for her pain Date Reviewed: 08/11/2022 Reviewed by: Leigh Calix MA - Fully Assessed Reason for Visit: Received Outside Medical Records [0701] Cmt: [facility] ([facility]) Labs 07/12/2024 Order(s):CMP (EXTERNAL) [[id number]] Order #: [id number] Prescriptions as of 07/18/2024 - diazePAM (VALIUM) 5 mg tablet Take 1 tablet by mouth two times a day for 30 days. - oxyCODONE-acetaminoph en (PERCOCET) 5-325 mg tablet Take 1 tablet by mouth every 6 hours for 30 days. - pregabalin (LYRICA) 150 mg capsule Take 1 capsule by mouth two times a day for 30 days. - pantoprazole DR (PROTONIX) 40 mg tablet Take 1 tablet by mouth once daily. - diclofenac (VOLTAREN) 1 % topical gel Apply 4 g to affected area four times daily. To back - ondansetron (ZOFRAN) 8 mg tablet Take 1 tablet by mouth every 8 hours as needed for nausea/vomiting. - doxycycline hyclate (VIBRAMYCIN) 100 mg capsule Take 1 capsule by mouth twice daily for 7 days. - guaiFENesin (MUCINEX) 600 mg 12 hr tablet Take 1 tablet by mouth twice daily. - pravastatin (PRAVACHOL) 10 mg tablet Take 10 mg by mouth once daily. - nystatin (MYCOSTATIN) cream Apply to affected area twice daily. - furosemide (LASIX) 20 mg tablet Take 20 mg by mouth twice daily. - acetaminophen 325 mg cap Take by mouth. - loperamide HCl (IMODIUM A-D) 2 mg tab Take 2 mg by mouth as needed. - calcium carbonate (TUMS 500 ORAL) Take by mouth. - guaifenesin/dextromet horphan (GUAIFENESIN DM ORAL) Take by mouth. - metoprolol tartrate, short acting, (LOPRESSOR) 50 mg tablet Take 0.5 tablets by mouth twice daily. Hold for BP <90/60, HR <55 - omeprazole (PRILOSEC) 40 mg capsule Take 1 capsule by mouth once daily. - QUEtiapine (SEROQUEL) 50 mg tablet Take 1 tablet by mouth daily at bedtime. - apixaban (ELIQUIS) 5 mg tab(s) Take 1 tablet by mouth twice daily. - PARoxetine (PAXIL) 40 mg tablet Take 1 tablet by mouth once daily. - valproic acid (DEPAKENE) 250 mg capsule Take 1 capsule by mouth three times daily. - sodium chloride (NaCl) 0.9% injection solution Inject 10 mL intravenously once daily. 10ml before and after dose, 10ml before lab draw, 20ml after lab draw, up to 30ml for sluggish IV, 10ml between bag changes and 10ml daily for maintenance - potassium chloride ER (K-DUR, KLOR-CON) 20 mEq tablet Take 1 tablet by mouth twice daily. - pramoxine-hydrocortis one (PROCTOFOAM-HC) rectal foam 1 Applicator by RECTAL route twice daily. - COMPOUNDED PRESCRIPTION Power Mobility Device scooter. Face to face evaluation 12/30/2018 Diagnosis: (T84.018S, Z96.659) Failure of total knee replacement, sequela (primary encounter diagnosis) (G35) Multiple sclerosis (HCC) (T84.498D) Mechanical complication of internal orthopedic device, implant or graft, subsequent encounter (M25.561, G89.29) Chronic pain of right knee (M17.11) Osteoarthritis of right knee, unspecified osteoarthritis type (R53.1) Generalized weakness (Z74.09) Requires scooter for mobility Length of need: 99 mos/ lifetime. - ascorbic acid, vitamin C, (VITAMIN C) 500 mg tablet Take 1 tablet by mouth twice daily with meals. - polyethylene glycol 3350 (MIRALAX, GLYCOLAX) 17 gram packet Take 1 Packet by mouth once daily. Problem List As Of Date 07/18/2024 Noted Resolved Osteoarthritis of right knee [M17.11] MS (multiple sclerosis) (HCC) [G35] Essential hypertension [I10] 02/13/2016 Lumbar disc herniation [M51.26] 06/01/1983 Current smoker [F17.200] 05/28/2016 Knee pain [M25.569] 06/06/2016 Primary osteoarthritis of left knee [M17.12] 01/12/2017 Gastroesophageal reflux disease without esophag*01/16/2017 Headache [R51.9] 01/16/2017 S/P total knee arthroplasty [Z96.659] 01/28/2017 Extensor tendon disruption [M67.89] 03/24/2017 SUMMARY 04/03/2017 04/17/2017 Knee pain, right [M25.561] 04/03/2017 Status post total knee replacement using cement*04/16/2017 04/21/2017 Acute pain of right knee [M25.561] 04/16/2017 04/21/2017 Patellar dislocation, right, initial encounter *04/20/2017 04/21/2017 S/P total knee (more content not included)... Normal [facility] Albumin to globulin ratioon 07-12-2024 Albumin/Globulin [Mass ratio] 0.7 {ratio} Low 0.9-2.4 [facility] Bilirubin, totalOrdered By: Ender Oates on 07-12-2024 Bilirubin [Mass/Vol] 0.60 mg/dL 0.20-1.00 [facility] Comment on above: For patients on eltr ombopag therapy, use of Dimension [place] TBIL is not recommended. Blood urea nitrogen (BUN)/cr eatinine ratioOrdered By: Ender Oates on 07-12-2024 Urea nitrogen/Creatinine [Mass ratio] 30.7 mg/mg High 10-20 [facility] CMP (EXTERNAL)on 07-12-2024 Alk Phos Total 80 U/L 45 - 117 U/L [facility] Bili Total 0.6 mg/dL 0.2 - 1 mg/dL [facility] CO2 [Moles/Vol] 27 mmol/L [facility] GFR 78 mL/MIN [facility] GFR AFR AMER 94 mL/MIN [facility] Globulin 4.6 [facility] Interpretation and review of laboratory results Abnormal [facility] Carbon dioxide measurementOr dered By: Ender Oates on 07-12-2024 CO2 [Moles/Vol] 27.0 mmol/L 21.0-32.0 [facility] Chloride measurementon 07-12 Chloride [Moles/Vol] 107 mmol/L 98-107 [facility] Erythrocyte distribution wid th (RBC) [Ratio]Ordered By: Ender Oates on 07-12-2024 Erythrocyte distribution width (RBC) [Entitic vol] 54.0 fL High 35.1-43.9 [facility] Erythrocyte distribution wid th ratioOrdered By: Ender Oates on 07-12-2024 Erythrocyte distribution width (RBC) [Ratio] 14.4 % 11.6-14.6 [facility] Estimated glomerular filtrat ion rate (GFR) AmericanOrdered By: Ender Oates on 07-12-2024 Estimated GFR (MDRD) Amer 94 mL/min >60 [facility] Comment on above: GFR Calc Glomerular filtration rate ( GFR) estimationOrdered By: Ender Oates on 07-12-2024 Estimated GFR (MDRD) Non-Af Amer 78 mL/min >60 [facility] Comment on above: Non- GFR Calc Glucose measurementon 2024 Glucose [Mass/Vol] 97 mg/dL 74-106 [facility] Hematocrit Auto (Bld) [Volum e fraction]Ordered By: Ender Oates on 07-12-2024 Hematocrit (Bld) [Volume fraction] 47.4 % High 37-47 [facility] Hemoglobin measurementOrdere d By: Ender Oates on 07-12-2024 Hemoglobin (Bld) [Mass/Vol] 14.9 g/dL 12.0-15.0 [facility] Laboratory - Chemistry and C hemistry - challengeon 07-12-2024 AST [Catalytic activity/Vol] 23 U/L 15-37 [facility] Comment on above: Slight Hemolysis, Re sult may be falsely increased. MCV (mean corpuscular volume ) determinationOrdered By: Ender Oates on 07-12-2024 MCV (RBC) [Entitic vol] 100.4 fL High 81-99 [facility] Mean corpuscular hemoglobin (MCH) determinationOrdered By: Ender Oates on 07-12-2024 MCH (RBC) [Entitic mass] 31.6 pg 27.0-32.0 [facility] Mean corpuscular hemoglobin concentration (MCHC) determinationOrdered By: Ender Oates on 07-12-2024 MCHC (RBC) [Mass/Vol] 31.4 g/dL Low 32-36 [facility] Mean platelet volume determi nationOrdered By: Ender Oates on 07-12-2024 Platelet mean volume (Bld) [Entitic vol] 10.4 fL 6.2-12.0 [facility] Platelet countOrdered By: Donnie Oates on 07-12-2024 Platelets (Bld) [#/Vol] 180 10*3/uL 150-450 [facility] Potassium measurementon 07-02 Potassium [Moles/Vol] 4.4 mmol/L 3.5-5.1 [facility] Comment on above: Slight Hemolysis, Re sult may be falsely increased. RBC Auto (Bld) [#/Vol]Ordere d By: Ender Oates on 07-12-2024 RBC (Bld) [#/Vol] 4.72 10*6/uL 4.2-5.4 [facility] Serum anion gap measurementO rdered By: Ender Oates on 07-12-2024 Anion gap [Moles/Vol] 4 mmol/L Low 5-15 [facility] Serum globulin measurementOr dered By: Ender Oates on 07-12-2024 Globulin (S) [Mass/Vol] 4.6 g/dL High 2.2-4.2 [facility] Serum or plasma alanine leung otransferase (ALT) measurementon 07-12-2024 ALT [Catalytic activity/Vol] 20 U/L 13-56 [facility] Serum or plasma albumin tammie urement (mass/volume)on 07-12-2024 Albumin [Mass/Vol] 3.2 g/dL 3.2-5.0 [facility] Serum or plasma alkaline rosey sphatase measurementOrdered By: Ender Oates on 07-12-2024 ALP [Catalytic activity/Vol] 80 U/L 45-117 [facility] Serum or plasma calcium tammie urement (mass/volume)on 07-12-2024 Calcium [Mass/Vol] 8.9 mg/dL 8.5-10.1 [facility] Serum or plasma creatinine m easurement (mass/volume)on 07-12-2024 Creatinine [Mass/Vol] 0.78 mg/dL 0.55-1.02 [facility] Comment on above: The validity of the calculated GFR & GFRAA in patients over 70 years has not been determined. Clinical correlation is essential. Serum or plasma urea nitroge n measurement (mass/volume)on 07-12-2024 Urea nitrogen [Mass/Vol] 24 mg/dL High 7-18 [facility] Sodium levelon 07-12-2024 Sodium [Moles/Vol] 138 mmol/L 136-145 [facility] Total proteinon 07-12-2024 Protein [Mass/Vol] 7.8 g/dL 6.4-8.2 [facility] White blood cell (WBC) count Ordered By: Ender Oates on 07-12-2024 WBC (Bld) [#/Vol] 6.2 10*3/uL 4.4-11.0 [facility] Albumin to globulin ratioOrd ered By: Royer Reagan on 07-04-2024 Albumin/Globulin [Mass ratio] 0.7 {ratio} Low 0.9-2.4 [facility] Bilirubin, totalOrdered By: Royer Reagan on 07-04-2024 Bilirubin [Mass/Vol] 0.40 mg/dL 0.20-1.00 [facility] Comment on above: For patients on eltr ombopag therapy, use of [place] TBIL is not recommended. Blood urea nitrogen (BUN)/cr eatinine ratioOrdered By: Royer Reagan on 07-04-2024 Urea nitrogen/Creatinine [Mass ratio] 22.4 mg/mg High 10-20 [facility] Carbon dioxide measurementOr dered By: Royer Reagan on 07-04-2024 CO2 [Moles/Vol] 27.0 mmol/L 21.0-32.0 [facility] Chloride measurementOrdered By: Royer Reagan on 07-04-2024 Chloride [Moles/Vol] 102 mmol/L 98-107 [facility] Erythrocyte distribution wid th (RBC) [Ratio]Ordered By: Royer Reagan on 07-04-2024 Erythrocyte distribution width (RBC) [Entitic vol] 55.4 fL High 35.1-43.9 [facility] Erythrocyte distribution wid th ratioOrdered By: Royer Reagan on 07-04-2024 Erythrocyte distribution width (RBC) [Ratio] 14.6 % 11.6-14.6 [facility] Estimated glomerular filtrat ion rate (GFR) AmericanOrdered By: Royer Reagan on 07-04-2024 Estimated GFR (MDRD) Amer 76 mL/min >60 [facility] Comment on above: GFR Calc Glomerular filtration rate ( GFR) estimationOrdered By: Royer Reagan on 07-04-2024 Estimated GFR (MDRD) Non-Af Amer 63 mL/min >60 [facility] Comment on above: Non- GFR Calc Glucose measurementOrdered B y: Royer Reagan on 07-04-2024 Glucose [Mass/Vol] 143 mg/dL High 74-106 [facility] Comment on above: Fasting Glucose resu lt greater than or equal to 126 mg/dL suggests DIABETES MELLITUS per A.D.A. criteria. Hematocrit Auto (Bld) [Volum e fraction]Ordered By: Royer Reagan on 07-04-2024 Hematocrit (Bld) [Volume fraction] 47.0 % 37-47 [facility] Hemoglobin measurementOrdere d By: Royer Reagan on 07-04-2024 Hemoglobin (Bld) [Mass/Vol] 14.4 g/dL 12.0-15.0 [facility] Laboratory - Chemistry and C hemistry - challengeOrdered By: Royer Reagan on 07-04-2024 AST [Catalytic activity/Vol] 20 U/L 15-37 [facility] MCV (mean corpuscular volume ) determinationOrdered By: Royer Reagan on 07-04-2024 MCV (RBC) [Entitic vol] 102.8 fL High 81-99 [facility] Mean corpuscular hemoglobin (MCH) determinationOrdered By: Royer Reagan on 07-04-2024 MCH (RBC) [Entitic mass] 31.5 pg 27.0-32.0 [facility] Mean corpuscular hemoglobin concentration (MCHC) determinationOrdered By: Royer Reagan on 07-04-2024 MCHC (RBC) [Mass/Vol] 30.6 g/dL Low 32-36 [facility] Mean platelet volume determi nationOrdered By: Royer Reagan on 07-04-2024 Platelet mean volume (Bld) [Entitic vol] 10.2 fL 6.2-12.0 [facility] Platelet countOrdered By: Adam Reagan on 07-04-2024 Platelets (Bld) [#/Vol] 221 10*3/uL 150-450 [facility] Potassium measurementOrdered By: Royer Reagan on 07-04-2024 Potassium [Moles/Vol] 4.2 mmol/L 3.5-5.1 [facility] RBC Auto (Bld) [#/Vol]Ordere d By: Royer Reagan on 07-04-2024 RBC (Bld) [#/Vol] 4.57 10*6/uL 4.2-5.4 [facility] Serum anion gap measurementO rdered By: Royer Reagan on 07-04-2024 Anion gap [Moles/Vol] 7 mmol/L 5-15 [facility] Serum globulin measurementOr dered By: Royer Reagan on 07-04-2024 Globulin (S) [Mass/Vol] 4.5 g/dL High 2.2-4.2 [facility] Serum or plasma alanine leung otransferase (ALT) measurementOrdered By: Royer Reagan on 07-04-2024 ALT [Catalytic activity/Vol] 23 U/L 13-56 [facility] Serum or plasma albumin tammie urement (mass/volume)Ordered By: Royer Reagan on 07-04-2024 Albumin [Mass/Vol] 3.3 g/dL 3.2-5.0 [facility] Serum or plasma alkaline rosey sphatase measurementOrdered By: Royer Reagan on 07-04-2024 ALP [Catalytic activity/Vol] 89 U/L 45-117 [facility] Serum or plasma calcium tammie urement (mass/volume)Ordered By: Royer Reagan on 07-04-2024 Calcium [Mass/Vol] 8.6 mg/dL 8.5-10.1 [facility] Serum or plasma creatinine m easurement (mass/volume)Ordered By: Royer Reagan on 07-04-2024 Creatinine [Mass/Vol] 0.94 mg/dL 0.55-1.02 [facility] Comment on above: The validity of the calculated GFR & GFRAA in patients over 70 years has not been determined. Clinical correlation is essential. Serum or plasma urea nitroge n measurement (mass/volume)Ordered By: Royer Reagan on 07-04-2024 Urea nitrogen [Mass/Vol] 21 mg/dL High 7-18 [facility] Sodium levelOrdered By: Ismael Reagan on 07-04-2024 Sodium [Moles/Vol] 136 mmol/L 136-145 [facility] Total proteinOrdered By: Ori Reagan on 07-04-2024 Protein [Mass/Vol] 7.8 g/dL 6.4-8.2 [facility] White blood cell (WBC) count Ordered By: Royer Reagan on 07-04-2024 WBC (Bld) [#/Vol] 6.8 10*3/uL 4.4-11.0 [facility] Albumin to globulin ratioOrd ered By: Ender Oates on 05-11-2024 Albumin/Globulin [Mass ratio] 0.8 {ratio} Low 0.9-2.4 [facility] Bilirubin, totalOrdered By: Ender Oates on 05-11-2024 Bilirubin [Mass/Vol] 0.40 mg/dL 0.20-1.00 [facility] Comment on above: For patients on eltr ombopag therapy, use of [place] TBIL is not recommended. Blood urea nitrogen (BUN)/cr eatinine ratioOrdered By: Ender Oates on 05-11-2024 Urea nitrogen/Creatinine [Mass ratio] 32.1 mg/mg High 10-20 [facility] Carbon dioxide measurementOr dered By: Ender Oates on 05-11-2024 CO2 [Moles/Vol] 29.0 mmol/L 21.0-32.0 [facility] Chloride measurementOrdered By: Ender Oates on 05-11-2024 Chloride [Moles/Vol] 108 mmol/L High 98-107 [facility] Erythrocyte distribution wid th (RBC) [Ratio]Ordered By: Ender Oates on 05-11-2024 Erythrocyte distribution width (RBC) [Entitic vol] 59.7 fL High 35.1-43.9 [facility] Erythrocyte distribution wid th ratioOrdered By: Ender Oates on 05-11-2024 Erythrocyte distribution width (RBC) [Ratio] 15.8 % High 11.6-14.6 [facility] Estimated glomerular filtrat ion rate (GFR) AmericanOrdered By: Ender Oates on 05-11-2024 Estimated GFR (MDRD) Amer 95 mL/min >60 [facility] Comment on above: GFR Calc Glomerular filtration rate ( GFR) estimationOrdered By: Ender Oates on 05-11-2024 Estimated GFR (MDRD) Non-Af Amer 78 mL/min >60 [facility] Comment on above: Non- GFR Calc Glucose measurementOrdered B y: Ender Oates on 05-11-2024 Glucose [Mass/Vol] 109 mg/dL High 74-106 [facility] Comment on above: Fasting Glucose resu lt from 100 to 125 mg/dL suggests IMPAIRED HOMEOSTASIS per A.D.A. criteria. Hematocrit Auto (Bld) [Volum e fraction]Ordered By: Ender Oates on 05-11-2024 Hematocrit (Bld) [Volume fraction] 43.3 % 37-47 [facility] Hemoglobin measurementOrdere d By: Ender Oates on 05-11-2024 Hemoglobin (Bld) [Mass/Vol] 13.4 g/dL 12.0-15.0 [facility] Laboratory - Chemistry and C hemistry - challengeOrdered By: Ender Oates on 05-11-2024 AST [Catalytic activity/Vol] 18 U/L 15-37 [facility] Comment on above: Moderate Hemolysis, Result may be falsely increased. MCV (mean corpuscular volume ) determinationOrdered By: Ender Oates on 05-11-2024 MCV (RBC) [Entitic vol] 102.6 fL High 81-99 [facility] Mean corpuscular hemoglobin (MCH) determinationOrdered By: Ender Oates on 05-11-2024 MCH (RBC) [Entitic mass] 31.8 pg 27.0-32.0 [facility] Mean corpuscular hemoglobin concentration (MCHC) determinationOrdered By: Ender Oates on 05-11-2024 MCHC (RBC) [Mass/Vol] 30.9 g/dL Low 32-36 [facility] Mean platelet volume determi nationOrdered By: Ender Oates on 05-11-2024 Platelet mean volume (Bld) [Entitic vol] 10.0 fL 6.2-12.0 [facility] Platelet countOrdered By: Donnie Oates on 05-11-2024 Platelets (Bld) [#/Vol] 174 10*3/uL 150-450 [facility] Potassium measurementOrdered By: Ender Oates on 05-11-2024 Potassium [Moles/Vol] 4.6 mmol/L 3.5-5.1 [facility] Comment on above: Moderate Hemolysis, Result may be falsely increased. RBC Auto (Bld) [#/Vol]Ordere d By: Ender Oates on 12-11-2024 RBC (Bld) [#/Vol] 4.22 10*6/uL 4.2-5.4 [facility] Serum anion gap measurementO rdered By: Ender Oates on 05-11-2024 Anion gap [Moles/Vol] 2 mmol/L Low 5-15 [facility] Serum globulin measurementOr dered By: Ender Oates on 05-11-2024 Globulin (S) [Mass/Vol] 3.7 g/dL 2.2-4.2 [facility] Serum or plasma alanine leung otransferase (ALT) measurementOrdered By: Ender Oates on 05-11-2024 ALT [Catalytic activity/Vol] 20 U/L 13-56 [facility] Serum or plasma albumin tammie urement (mass/volume)Ordered By: Ender Oates on 05-11-2024 Albumin [Mass/Vol] 2.8 g/dL Low 3.2-5.0 [facility] Serum or plasma alkaline rosey sphatase measurementOrdered By: Ender Oates on 05-11-2024 ALP [Catalytic activity/Vol] 84 U/L 45-117 [facility] Serum or plasma calcium tammie urement (mass/volume)Ordered By: Ender Oates on 05-11-2024 Calcium [Mass/Vol] 8.9 mg/dL 8.5-10.1 [facility] Serum or plasma creatinine m easurement (mass/volume)Ordered By: Ender Oates on 05-11-2024 Creatinine [Mass/Vol] 0.78 mg/dL 0.55-1.02 [facility] Comment on above: The validity of the calculated GFR & GFRAA in patients over 70 years has not been determined. Clinical correlation is essential. Serum or plasma urea nitroge n measurement (mass/volume)Ordered By: Ender Oates on 05-11-2024 Urea nitrogen [Mass/Vol] 25 mg/dL High 7-18 [facility] Sodium levelOrdered By: Jimbo Oates on 05-11-2024 Sodium [Moles/Vol] 139 mmol/L 136-145 [facility] Total proteinOrdered By: Ronaldo Oates on 05-11-2024 Protein [Mass/Vol] 6.5 g/dL 6.4-8.2 [facility] White blood cell (WBC) count Ordered By: Ender Oates on 05-11-2024 WBC (Bld) [#/Vol] 6.0 10*3/uL 4.4-11.0 [facility] CNPNon 04-12-2024 CNPN Telephone (FPWADS) CHARLIE NGUYEN ([id number]) 1955 F CHT Date Time Provider Department 04/12/24 MORENO OATES FPWADS During your visit today, we recorded the following information about you: Fadumo Rahman LPN 04/12/2024 10:33 AM Signed Received from [facility]. Placed in provider's inbox for review. Route to [place] for scanning. Allergies As of Date: 04/12/2024 Noted Allergy Reaction NSAIDS (NON-STEROIDAL ANTI-INFLAM* 7 8 - GI Upset GABAPENTIN 10/07/2018 8 - GI Upset MACROBID (NITROFURANTOIN MONOHYD/*02/13/2016 4 - Hives TRAMADOL 01/22/2017 15 - Contraindication-Medi mike Pierre* Comments: Drug interaction with amitriptyline - told not to take due to increased seizure risk NORCO (HYDROCODONE-ACETAMIN OPHEN) 08/14/2016 8 - GI Upset Comments: Didn't do anything for her pain Date Reviewed: 08/11/2022 Reviewed by: Leigh Calix MA - Fully Assessed Reason for Visit: Received Outside Medical Records [[id number]] Cmt: [facility] 04/11/2024 Order(s):CBC [[id number]] Order #: [id number] CMP (EXTERNAL) [[id number]] Order #: [id number] Prescriptions as of 04/12/2024 - oxyCODONE-acetaminoph en (PERCOCET) 5-325 mg tablet Take 1 tablet by mouth every 6 hours for 30 days. - pregabalin (LYRICA) 150 mg capsule Take 1 capsule by mouth two times a day for 30 days. - diazePAM (VALIUM) 5 mg tablet Take 1 tablet by mouth two times a day for 30 days. - pantoprazole DR (PROTONIX) 40 mg tablet Take 1 tablet by mouth once daily. - diclofenac (VOLTAREN) 1 % topical gel Apply 4 g to affected area four times daily. To back - ondansetron (ZOFRAN) 8 mg tablet Take 1 tablet by mouth every 8 hours as needed for nausea/vomiting. - doxycycline hyclate (VIBRAMYCIN) 100 mg capsule Take 1 capsule by mouth twice daily for 7 days. - guaiFENesin (MUCINEX) 600 mg 12 hr tablet Take 1 tablet by mouth twice daily. - pravastatin (PRAVACHOL) 10 mg tablet Take 10 mg by mouth once daily. - nystatin (MYCOSTATIN) cream Apply to affected area twice daily. - furosemide (LASIX) 20 mg tablet Take 20 mg by mouth twice daily. - acetaminophen 325 mg cap Take by mouth. - loperamide HCl (IMODIUM A-D) 2 mg tab Take 2 mg by mouth as needed. - calcium carbonate (TUMS 500 ORAL) Take by mouth. - guaifenesin/dextromet horphan (GUAIFENESIN DM ORAL) Take by mouth. - metoprolol tartrate, short acting, (LOPRESSOR) 50 mg tablet Take 0.5 tablets by mouth twice daily. Hold for BP <90/60, HR <55 - omeprazole (PRILOSEC) 40 mg capsule Take 1 capsule by mouth once daily. - QUEtiapine (SEROQUEL) 50 mg tablet Take 1 tablet by mouth daily at bedtime. - apixaban (ELIQUIS) 5 mg tab(s) Take 1 tablet by mouth twice daily. - PARoxetine (PAXIL) 40 mg tablet Take 1 tablet by mouth once daily. - valproic acid (DEPAKENE) 250 mg capsule Take 1 capsule by mouth three times daily. - sodium chloride (NaCl) 0.9% injection solution Inject 10 mL intravenously once daily. 10ml before and after dose, 10ml before lab draw, 20ml after lab draw, up to 30ml for sluggish IV, 10ml between bag changes and 10ml daily for maintenance - potassium chloride ER (K-DUR, KLOR-CON) 20 mEq tablet Take 1 tablet by mouth twice daily. - pramoxine-hydrocortis one (PROCTOFOAM-HC) rectal foam 1 Applicator by RECTAL route twice daily. - COMPOUNDED PRESCRIPTION Power Mobility Device scooter. Face to face evaluation 12/30/2018 Diagnosis: (T84.018S, Z96.659) Failure of total knee replacement, sequela (primary encounter diagnosis) (G35) Multiple sclerosis (HCC) (T84.498D) Mechanical complication of internal orthopedic device, implant or graft, subsequent encounter (M25.561, G89.29) Chronic pain of right knee (M17.11) Osteoarthritis of right knee, unspecified osteoarthritis type (R53.1) Generalized weakness (Z74.09) Requires scooter for mobility Length of need: 99 mos/ lifetime. - ascorbic acid, vitamin C, (VITAMIN C) 500 mg tablet Take 1 tablet by mouth twice daily with meals. - polyethylene glycol 3350 (MIRALAX, GLYCOLAX) 17 gram packet Take 1 Packet by mouth once daily. Problem List As Of Date 04/12/2024 Noted Resolved Osteoarthritis of right knee [M17.11] MS (multiple sclerosis) (HCC) [G35] Essential hypertension [I10] 02/13/2016 Lumbar disc herniation [M51.26] 06/01/1983 Current smoker [F17.200] 05/28/2016 Knee pain [M25.569] 06/06/2016 Primary osteoarthritis of left knee [M17.12] 01/12/2017 Gastroesophageal reflux disease without esophag*01/16/2017 Headache [R51.9] 01/16/2017 S/P total knee arthroplasty [Z96.659] 01/28/2017 Extensor tendon disruption [M67.89] 03/24/2017 SUMMARY 04/03/2017 04/17/2017 Knee pain, right [M25.561] 04/03/2017 Status post total knee replacement using cement*04/16/2017 04/21/2017 Acute pain of right knee [M25.561] 04/16/2017 04/21/2017 Patellar dislocation, right, initial encounter *04/20/201704/02 (more content not included)... Normal [facility] 04-11-2024 Erythrocyte distribution width (RBC) [Ratio] 15.9 % Abnormal 11.7 - 15.0 % [facility] Hematocrit (Bld) [Volume fraction] 47.1 % Abnormal 33 - 42 % [facility] Hemoglobin (Bld) [Mass/Vol] 15.2 g/dL 14 - 16.5 g/dL [facility] MCH (RBC) [Entitic mass] 32.1 pG 27 - [address] [facility] MCHC 32.3 % 32 - 36 % [facility] MCV (RBC) [Entitic vol] 99.4 fL 80 - [address] [facility] Platelet mean volume (Bld) [Entitic vol] 10.3 fL 7.4 - 10.[address] [facility] Platelets (Bld) [#/Vol] 191 10*3/uL [facility] RBC (Bld) [#/Vol] 4.74 10*6/uL [facility] RDW-SD 58.9 [facility] WBC (Bld) [#/Vol] 7.2 10*3/uL [facility] CMP (EXTERNAL)on 04-11-2024 Albumin [Mass/Vol] 3.1 g/dL Abnormal [facility] Alk Phos Total 81 U/L 45 - 117 U/L [facility] ALT [Catalytic activity/Vol] 19 U/L 12 - 78 U/L [facility] AST [Catalytic activity/Vol] 22 U/L 8 - 37 U/L [facility] Bili Total 0.50 mg/dL 0.2 - 1 mg/dL [facility] Calcium [Mass/Vol] 8.4 mg/dL Abnormal 8.5 - 10. 1 mg/dL [facility] Chloride [Moles/Vol] 109 mmol/L Abnormal [facility] CO2 [Moles/Vol] 24 mmol/L [facility] Creatinine [Mass/Vol] 0.83 mg/dL [facility] GFR 73 mL/MIN [facility] GFR AFR AMER 88 mL/MIN [facility] Glucose [Mass/Vol] 112 mg/dL Abnormal [facility] Potassium [Moles/Vol] 4.2 mmol/L 3.5 - 5.1 mmol/L [facility] Protein [Mass/Vol] 7.4 g/dL [facility] Sodium [Moles/Vol] 139 mmol/L 136 - 145 mmol/L [facility] Urea nitrogen [Mass/Vol] 22 mg/dL Abnormal [facility] No Panel Informationon 04-11 Interpretation and review of laboratory results Abnormal [facility] CNPNon 03-17-2024 CNPN Telephone (SUSIWADOREEN) CHARLIE NGUYEN ([id number]) 1955 F CHT Date Time Provider Department 03/17/24 MORENO OATES During your visit today, we recorded the following information about you: Roderick Gaviria LPN 03/17/2024 8:43 AM Signed Received orders from [employer]. Placed in provider's inbox for review. Route to [place] fax Allergies As of Date: 03/17/2024 Noted Allergy Reaction NSAIDS (NON-STEROIDAL ANTI-INFLAM* 7 8 - GI Upset GABAPENTIN 10/07/2018 8 - GI Upset MACROBID (NITROFURANTOIN MONOHYD/*02/13/2016 4 - Hives TRAMADOL 01/22/2017 15 - Contraindication-Medi mike Pierre* Comments: Drug interaction with amitriptyline - told not to take due to increased seizure risk NORCO (HYDROCODONE-ACETAMIN OPHEN) 08/14/2016 8 - GI Upset Comments: Didn't do anything for her pain Date Reviewed: 08/11/2022 Reviewed by: Leigh Calix MA - Fully Assessed Reason for Visit: Orders [681] Cmt: [place] [facility] Prescriptions as of 03/17/2024 - oxyCODONE-acetaminoph en (PERCOCET) 5-325 mg tablet Take 1 tablet by mouth every 6 hours for 30 days. - pregabalin (LYRICA) 150 mg capsule Take 1 capsule by mouth two times a day for 30 days. - diazePAM (VALIUM) 5 mg tablet Take 1 tablet by mouth two times a day for 30 days. - pantoprazole DR (PROTONIX) 40 mg tablet Take 1 tablet by mouth once daily. - diclofenac (VOLTAREN) 1 % topical gel Apply 4 g to affected area four times daily. To back - ondansetron (ZOFRAN) 8 mg tablet Take 1 tablet by mouth every 8 hours as needed for nausea/vomiting. - doxycycline hyclate (VIBRAMYCIN) 100 mg capsule Take 1 capsule by mouth twice daily for 7 days. - guaiFENesin (MUCINEX) 600 mg 12 hr tablet Take 1 tablet by mouth twice daily. - pravastatin (PRAVACHOL) 10 mg tablet Take 10 mg by mouth once daily. - nystatin (MYCOSTATIN) cream Apply to affected area twice daily. - furosemide (LASIX) 20 mg tablet Take 20 mg by mouth twice daily. - acetaminophen 325 mg cap Take by mouth. - loperamide HCl (IMODIUM A-D) 2 mg tab Take 2 mg by mouth as needed. - calcium carbonate (TUMS 500 ORAL) Take by mouth. - guaifenesin/dextromet horphan (GUAIFENESIN DM ORAL) Take by mouth. - metoprolol tartrate, short acting, (LOPRESSOR) 50 mg tablet Take 0.5 tablets by mouth twice daily. Hold for BP <90/60, HR <55 - omeprazole (PRILOSEC) 40 mg capsule Take 1 capsule by mouth once daily. - QUEtiapine (SEROQUEL) 50 mg tablet Take 1 tablet by mouth daily at bedtime. - apixaban (ELIQUIS) 5 mg tab(s) Take 1 tablet by mouth twice daily. - PARoxetine (PAXIL) 40 mg tablet Take 1 tablet by mouth once daily. - valproic acid (DEPAKENE) 250 mg capsule Take 1 capsule by mouth three times daily. - sodium chloride (NaCl) 0.9% injection solution Inject 10 mL intravenously once daily. 10ml before and after dose, 10ml before lab draw, 20ml after lab draw, up to 30ml for sluggish IV, 10ml between bag changes and 10ml daily for maintenance - potassium chloride ER (K-DUR, KLOR-CON) 20 mEq tablet Take 1 tablet by mouth twice daily. - pramoxine-hydrocortis one (PROCTOFOAM-HC) rectal foam 1 Applicator by RECTAL route twice daily. - COMPOUNDED PRESCRIPTION Power Mobility Device scooter. Face to face evaluation 12/30/2018 Diagnosis: (T84.018S, Z96.659) Failure of total knee replacement, sequela (primary encounter diagnosis) (G35) Multiple sclerosis (HCC) (T84.498D) Mechanical complication of internal orthopedic device, implant or graft, subsequent encounter (M25.561, G89.29) Chronic pain of right knee (M17.11) Osteoarthritis of right knee, unspecified osteoarthritis type (R53.1) Generalized weakness (Z74.09) Requires scooter for mobility Length of need: 99 mos/ lifetime. - ascorbic acid, vitamin C, (VITAMIN C) 500 mg tablet Take 1 tablet by mouth twice daily with meals. - polyethylene glycol 3350 (MIRALAX, GLYCOLAX) 17 gram packet Take 1 Packet by mouth once daily. Problem List As Of Date 03/17/2024 Noted Resolved Osteoarthritis of right knee [M17.11] MS (multiple sclerosis) (HCC) [G35] Essential hypertension [I10] 02/13/2016 Lumbar disc herniation [M51.26] 06/01/1983 Current smoker [F17.200] 05/28/2016 Knee pain [M25.569] 06/06/2016 Primary osteoarthritis of left knee [M17.12] 01/12/2017 Gastroesophageal reflux disease without esophag*01/16/2017 Headache [R51.9] 01/16/2017 S/P total knee arthroplasty [Z96.659] 01/28/2017 Extensor tendon disruption [M67.89] 03/24/2017 SUMMARY 04/03/2017 04/17/2017 Knee pain, right [M25.561] 04/03/2017 Status post total knee replacement using cement*04/16/2017 04/21/2017 Acute pain of right knee [M25.561] 04/16/2017 04/21/2017 Patellar dislocation, right, initial encounter *04/20/2017 04/21/2017 S/P total knee arthroplasty, right [Z96.651] 06/25/2017 07/08/2017 Acute pain of right knee [M25.561] 06/25/2017 07/08/2017 S/P revision (more content not included)... Normal [facility] 03-10-2024 [facility] Telephone (FPWADS) CHARLIE NGUYEN ([id number]) 1955 F T Date Time Provider Department 03/10/24 MORENO OATES During your visit today, we recorded the following information about you: Roderick Gaviria LPN 03/10/2024 5:23 PM Signed Received outside lab results from [facility]. Placed in provider's inbox for review. Route to [place] scanning Allergies As of Date: 03/10/2024 Noted Allergy Reaction NSAIDS (NON-STEROIDAL ANTI-INFLAM* 7 8 - GI Upset GABAPENTIN 10/07/2018 8 - GI Upset MACROBID (NITROFURANTOIN MONOHYD/*02/13/2016 4 - Hives TRAMADOL 01/22/2017 15 - Contraindication-Medi mike Pierre* Comments: Drug interaction with amitriptyline - told not to take due to increased seizure risk NORCO (HYDROCODONE-ACETAMIN OPHEN) 08/14/2016 8 - GI Upset Comments: Didn't do anything for her pain Date Reviewed: 08/11/2022 Reviewed by: Leigh Calix MA - Fully Assessed Reason for Visit: Outside Labs Results [437] Cmt: [facility] Prescriptions as of 03/10/2024 - oxyCODONE-acetaminoph en (PERCOCET) 5-325 mg tablet Take 1 tablet by mouth every 6 hours for 30 days. - pregabalin (LYRICA) 150 mg capsule Take 1 capsule by mouth two times a day for 30 days. - diazePAM (VALIUM) 5 mg tablet Take 1 tablet by mouth two times a day for 30 days. - pantoprazole DR (PROTONIX) 40 mg tablet Take 1 tablet by mouth once daily. - diclofenac (VOLTAREN) 1 % topical gel Apply 4 g to affected area four times daily. To back - ondansetron (ZOFRAN) 8 mg tablet Take 1 tablet by mouth every 8 hours as needed for nausea/vomiting. - doxycycline hyclate (VIBRAMYCIN) 100 mg capsule Take 1 capsule by mouth twice daily for 7 days. - guaiFENesin (MUCINEX) 600 mg 12 hr tablet Take 1 tablet by mouth twice daily. - pravastatin (PRAVACHOL) 10 mg tablet Take 10 mg by mouth once daily. - nystatin (MYCOSTATIN) cream Apply to affected area twice daily. - furosemide (LASIX) 20 mg tablet Take 20 mg by mouth twice daily. - acetaminophen 325 mg cap Take by mouth. - loperamide HCl (IMODIUM A-D) 2 mg tab Take 2 mg by mouth as needed. - calcium carbonate (TUMS 500 ORAL) Take by mouth. - guaifenesin/dextromet horphan (GUAIFENESIN DM ORAL) Take by mouth. - metoprolol tartrate, short acting, (LOPRESSOR) 50 mg tablet Take 0.5 tablets by mouth twice daily. Hold for BP <90/60, HR <55 - omeprazole (PRILOSEC) 40 mg capsule Take 1 capsule by mouth once daily. - QUEtiapine (SEROQUEL) 50 mg tablet Take 1 tablet by mouth daily at bedtime. - apixaban (ELIQUIS) 5 mg tab(s) Take 1 tablet by mouth twice daily. - PARoxetine (PAXIL) 40 mg tablet Take 1 tablet by mouth once daily. - valproic acid (DEPAKENE) 250 mg capsule Take 1 capsule by mouth three times daily. - sodium chloride (NaCl) 0.9% injection solution Inject 10 mL intravenously once daily. 10ml before and after dose, 10ml before lab draw, 20ml after lab draw, up to 30ml for sluggish IV, 10ml between bag changes and 10ml daily for maintenance - potassium chloride ER (K-DUR, KLOR-CON) 20 mEq tablet Take 1 tablet by mouth twice daily. - pramoxine-hydrocortis one (PROCTOFOAM-HC) rectal foam 1 Applicator by RECTAL route twice daily. - COMPOUNDED PRESCRIPTION Power Mobility Device scooter. Face to face evaluation 12/30/2018 Diagnosis: (T84.018S, Z96.659) Failure of total knee replacement, sequela (primary encounter diagnosis) (G35) Multiple sclerosis (HCC) (T84.498D) Mechanical complication of internal orthopedic device, implant or graft, subsequent encounter (M25.561, G89.29) Chronic pain of right knee (M17.11) Osteoarthritis of right knee, unspecified osteoarthritis type (R53.1) Generalized weakness (Z74.09) Requires scooter for mobility Length of need: 99 mos/ lifetime. - ascorbic acid, vitamin C, (VITAMIN C) 500 mg tablet Take 1 tablet by mouth twice daily with meals. - polyethylene glycol 3350 (MIRALAX, GLYCOLAX) 17 gram packet Take 1 Packet by mouth once daily. Problem List As Of Date 03/10/2024 Noted Resolved Osteoarthritis of right knee [M17.11] MS (multiple sclerosis) ([facility]) [G35] Essential hypertension [I10] 02/13/2016 Lumbar disc herniation [M51.26] 06/01/1983 Current smoker [F17.200] 05/28/2016 Knee pain [M25.569] 06/06/2016 Primary osteoarthritis of left knee [M17.12] 01/12/2017 Gastroesophageal reflux disease without esophag*01/16/2017 Headache [R51.9] 01/16/2017 S/P total knee arthroplasty [Z96.659] 01/28/2017 Extensor tendon disruption [M67.89] 03/24/2017 SUMMARY 04/03/2017 04/17/2017 Knee pain, right [M25.561] 04/03/2017 Status post total knee replacement using cement*04/16/2017 04/21/2017 Acute pain of right knee [M25.561] 04/16/2017 04/21/2017 Patellar dislocation, right, initial encounter *04/20/2017 04/21/2017 S/P total knee arthroplasty, right [Z96.651] 06/25/2017 07/08/2017 Acute pain of right knee [M25.561] 06/25/2017 07/08/2017 S/P (more content not included)... Normal [facility] 12-29-2023 [facility] Telephone (FPWADS) CHARLIE NGUYEN ([id number]) 1955 F C[place] Date Time Provider Department 12/29/23 MORENO OATES During your visit today, we recorded the following information about you: Hoda Early 12/29/2023 5:02 PM Signed Charlie is calling Moreno Oates MD today Elizabeth, Nurse from [facility] called to request this medication, not on current list: Disp Refills Start End diazePAM (VALIUM) 5 mg tablet 60 tablet 0 11/27/2023 12/27/2023 Sig: Take 1 tablet by mouth two times a day for 30 days. Sent to pharmacy as: diazePAM (VALIUM) 5 mg tablet Class: Normal Route: ORAL Order: [id number] E-Prescribing Status: Receipt confirmed by pharmacy (11/27/2023 2:31 PM EDT) Please send to [facility]. Patient has been identified by name and birthdate. Duration of symptoms: N/A Was an appointment scheduled: No Closing statement: Results or non-symptom based questions: Thank you for calling [facility], your call will be returned within the next business day. Hoda Leeing Pss Allergies As of Date: 12/29/2023 Noted Allergy Reaction NSAIDS (NON-STEROIDAL ANTI-INFLAM* 7 8 - GI Upset GABAPENTIN 10/07/2018 8 - GI Upset MACROBID (NITROFURANTOIN MONOHYD/*02/13/2016 4 - Hives TRAMADOL 01/22/2017 15 - Contraindication-Medi mike Pierre* Comments: Drug interaction with amitriptyline - told not to take due to increased seizure risk NORCO (HYDROCODONE-ACETAMIN OPHEN) 08/14/2016 8 - GI Upset Comments: Didn't do anything for her pain Date Reviewed: 08/11/2022 Reviewed by: Leigh Calix MA - Fully Assessed Reason for Visit: Medication Request [138] Visit Diagnosis:Chronic anxiety [F41.9] Order(s):diazePAM (VALIUM) 5 mg tabletTake 1 tablet by mouth two times a day for 30 days.Disp: 60 tabletRfl: 0 Prescriptions as of 12/31/2023 - oxyCODONE-acetaminoph en (PERCOCET) 5-325 mg tablet Take 1 tablet by mouth every 6 hours for 30 days. - pregabalin (LYRICA) 150 mg capsule Take 1 capsule by mouth two times a day for 30 days. - diazePAM (VALIUM) 5 mg tablet Take 1 tablet by mouth two times a day for 30 days. - pantoprazole DR (PROTONIX) 40 mg tablet Take 1 tablet by mouth once daily. - diclofenac (VOLTAREN) 1 % topical gel Apply 4 g to affected area four times daily. To back - ondansetron (ZOFRAN) 8 mg tablet Take 1 tablet by mouth every 8 hours as needed for nausea/vomiting. - doxycycline hyclate (VIBRAMYCIN) 100 mg capsule Take 1 capsule by mouth twice daily for 7 days. - guaiFENesin (MUCINEX) 600 mg 12 hr tablet Take 1 tablet by mouth twice daily. - pravastatin (PRAVACHOL) 10 mg tablet Take 10 mg by mouth once daily. - nystatin (MYCOSTATIN) cream Apply to affected area twice daily. - furosemide (LASIX) 20 mg tablet Take 20 mg by mouth twice daily. - acetaminophen 325 mg cap Take by mouth. - loperamide HCl (IMODIUM A-D) 2 mg tab Take 2 mg by mouth as needed. - calcium carbonate (TUMS 500 ORAL) Take by mouth. - guaifenesin/dextromet horphan (GUAIFENESIN DM ORAL) Take by mouth. - metoprolol tartrate, short acting, (LOPRESSOR) 50 mg tablet Take 0.5 tablets by mouth twice daily. Hold for BP <90/60, HR <55 - omeprazole (PRILOSEC) 40 mg capsule Take 1 capsule by mouth once daily. - QUEtiapine (SEROQUEL) 50 mg tablet Take 1 tablet by mouth daily at bedtime. - apixaban (ELIQUIS) 5 mg tab(s) Take 1 tablet by mouth twice daily. - PARoxetine (PAXIL) 40 mg tablet Take 1 tablet by mouth once daily. - valproic acid (DEPAKENE) 250 mg capsule Take 1 capsule by mouth three times daily. - sodium chloride (NaCl) 0.9% injection solution Inject 10 mL intravenously once daily. 10ml before and after dose, 10ml before lab draw, 20ml after lab draw, up to 30ml for sluggish IV, 10ml between bag changes and 10ml daily for maintenance - potassium chloride ER (K-DUR, KLOR-CON) 20 mEq tablet Take 1 tablet by mouth twice daily. - pramoxine-hydrocortis one (PROCTOFOAM-HC) rectal foam 1 Applicator by RECTAL route twice daily. - COMPOUNDED PRESCRIPTION Power Mobility Device scooter. Face to face evaluation 12/30/2018 Diagnosis: (T84.018S, Z96.659) Failure of total knee replacement, sequela (primary encounter diagnosis) (G35) Multiple sclerosis (HCC) (T84.498D) Mechanical complication of internal orthopedic device, implant or graft, subsequent encounter (M25.561, G89.29) Chronic pain of right knee (M17.11) Osteoarthritis of right knee, unspecified osteoarthritis type (R53.1) Generalized weakness (Z74.09) Requires scooter for mobility Length of need: 99 mos/ lifetime. - ascorbic acid, vitamin C, (VITAMIN C) 500 mg tablet Take 1 tablet by mouth twice daily with meals. - polyethylene glycol 3350 (MIRALAX, GLYCOLAX) 17 gram packet Take 1 Packet by mouth once daily. Problem List As Of Date 12/29/2023 Noted Resolved Osteoarthritis of right knee [M17.11] MS (multip (more content not included)... Normal [facility] CHARLIE NGUYEN ([id number]) 1955 F [facility] Date Time Provider Department 11/27/23 MORENO OATES During your visit today, we recorded the following information about you: Moreno Oates MD 11/27/2023 2:31 PM Signed Pt at [facility]. The following approved medication requests have been transmitted electronically. Requested Prescriptions Signed Prescriptions Disp Refills oxyCODONE-acetaminoph en (PERCOCET) 5-325 mg tablet 120 tablet 0 Sig: Take 1 tablet by mouth every 6 hours for 30 days. Authorizing Provider: MORENO OATES diazePAM (VALIUM) 5 mg tablet 60 tablet 0 Sig: Take 1 tablet by mouth two times a day for 30 days. Authorizing Provider: MORENO OATES pregabalin (LYRICA) 150 mg capsule 60 capsule 0 Sig: Take 1 capsule by mouth two times a day for 30 days. Authorizing Provider: MORENO OATES MD Allergies As of Date: 11/27/2023 Noted Allergy Reaction NSAIDS (NON-STEROIDAL ANTI-INFLAM* 7 8 - GI Upset GABAPENTIN 10/07/2018 8 - GI Upset MACROBID (NITROFURANTOIN MONOHYD/*02/13/2016 4 - Hives TRAMADOL 01/22/2017 15 - Contraindication-Medi mike Pierre* Comments: Drug interaction with amitriptyline - told not to take due to increased seizure risk NORCO (HYDROCODONE-ACETAMIN OPHEN) 08/14/2016 8 - GI Upset Comments: Didn't do anything for her pain Date Reviewed: 08/11/2022 Reviewed by: Leigh Calix MA - Fully Assessed Visit Diagnoses:Infection associated with internal right knee prosthesis, 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 - diazePAM (VALIUM) 5 mg tablet Take 1 tablet by mouth two times a day for 30 days. - pregabalin (LYRICA) 150 mg capsule Take 1 capsule by mouth two times a day for 30 days. - pantoprazole DR (PROTONIX) 40 mg tablet Take 1 tablet by mouth once daily. - diclofenac (VOLTAREN) 1 % topical gel Apply 4 g to affected area four times daily. To back - ondansetron (ZOFRAN) 8 mg tablet Take 1 tablet by mouth every 8 hours as needed for nausea/vomiting. - doxycycline hyclate (VIBRAMYCIN) 100 mg capsule Take 1 capsule by mouth twice daily for 7 days. - guaiFENesin (MUCINEX) 600 mg 12 hr tablet Take 1 tablet by mouth twice daily. - pravastatin (PRAVACHOL) 10 mg tablet Take 10 mg by mouth once daily. - nystatin (MYCOSTATIN) cream Apply to affected area twice daily. - furosemide (LASIX) 20 mg tablet Take 20 mg by mouth twice daily. - acetaminophen 325 mg cap Take by mouth. - loperamide HCl (IMODIUM A-D) 2 mg tab Take 2 mg by mouth as needed. - calcium carbonate (TUMS 500 ORAL) Take by mouth. - guaifenesin/dextromet horphan (GUAIFENESIN DM ORAL) Take by mouth. - metoprolol tartrate, short acting, (LOPRESSOR) 50 mg tablet Take 0.5 tablets by mouth twice daily. Hold for BP <90/60, HR <55 - omeprazole (PRILOSEC) 40 mg capsule Take 1 capsule by mouth once daily. - QUEtiapine (SEROQUEL) 50 mg tablet Take 1 tablet by mouth daily at bedtime. - apixaban (ELIQUIS) 5 mg tab(s) Take 1 tablet by mouth twice daily. - PARoxetine (PAXIL) 40 mg tablet Take 1 tablet by mouth once daily. - valproic acid (DEPAKENE) 250 mg capsule Take 1 capsule by mouth three times daily. - sodium chloride (NaCl) 0.9% injection solution Inject 10 mL intravenously once daily. 10ml before and after dose, 10ml before lab draw, 20ml after lab draw, up to 30ml for sluggish IV, 10ml between bag changes and 10ml daily for maintenance - potassium chloride ER (K-DUR, KLOR-CON) 20 mEq tablet Take 1 tablet by mouth twice daily. - pramoxine-hydrocortis one (PROCTOFOAM-HC) rectal foam 1 Applicator by RECTAL route twice daily. - COMPOUNDED PRESCRIPTION Power Mobility Device scooter. Face to face evaluation 12/30/2018 Diagnosis: (T84.018S, Z96.659) Failure of total knee replacement, sequela (primary encounter diagnosis) (G35) Multiple sclerosis (HCC) (T84.498D) Mechanical complication of internal orthopedic device, implant or graft, subsequent encounter (M25.561, G89.29) Chronic pain of right knee (M17.11) Osteoarthritis of right knee, unspecified osteoarthritis type (R53.1) Generalized weakness (Z74.09) Requires scooter for mobility Length of need: 99 mos/ lifetime. - ascorbic acid, vitamin C, (VITAMIN C) 500 mg tablet Take 1 tablet by mouth twice daily with meals. - polye (more content not included)... Normal [facility] 11-10-2023 [facility] Telephone (FMWADS) CHARLIE NGUYEN ([id number]) 1955 F T Date Time Provider Department 11/10/23 MORENO OATES WADOREEN During your visit today, we recorded the following information about you: Allergies As of Date: 11/10/2023 Noted Allergy Reaction NSAIDS (NON-STEROIDAL ANTI-INFLAM* 7 8 - GI Upset GABAPENTIN 10/07/2018 8 - GI Upset MACROBID (NITROFURANTOIN MONOHYD/*02/13/2016 4 - Hives TRAMADOL 01/22/2017 15 - Contraindication-Medi mike Pierre* Comments: Drug interaction with amitriptyline - told not to take due to increased seizure risk NORCO (HYDROCODONE-ACETAMIN OPHEN) 08/14/2016 8 - GI Upset Comments: Didn't do anything for her pain Date Reviewed: 08/11/2022 Reviewed by: Leigh Calix MA - Fully Assessed Reason for Visit: Received Outside Medical Records [[id number]] Cmt: [facility] 11/09/2023 Order(s):CMP (EXTERNAL) [[id number]] Order #: [id number] [facility] [[id number]] Order #: [id number] Prescriptions as of 11/10/2023 - pregabalin (LYRICA) 150 mg capsule Take 1 capsule by mouth two times a day for 30 days. - oxyCODONE-acetaminoph en (PERCOCET) 5-325 mg tablet Take 1 tablet by mouth every 6 hours for 30 days. - diazePAM (VALIUM) 5 mg tablet Take 1 tablet by mouth two times a day for 30 days. - pantoprazole DR (PROTONIX) 40 mg tablet Take 1 tablet by mouth once daily. - diclofenac (VOLTAREN) 1 % topical gel Apply 4 g to affected area four times daily. To back - ondansetron (ZOFRAN) 8 mg tablet Take 1 tablet by mouth every 8 hours as needed for nausea/vomiting. - doxycycline hyclate (VIBRAMYCIN) 100 mg capsule Take 1 capsule by mouth twice daily for 7 days. - guaiFENesin (MUCINEX) 600 mg 12 hr tablet Take 1 tablet by mouth twice daily. - pravastatin (PRAVACHOL) 10 mg tablet Take 10 mg by mouth once daily. - nystatin (MYCOSTATIN) cream Apply to affected area twice daily. - furosemide (LASIX) 20 mg tablet Take 20 mg by mouth twice daily. - acetaminophen 325 mg cap Take by mouth. - loperamide HCl (IMODIUM A-D) 2 mg tab Take 2 mg by mouth as needed. - calcium carbonate (TUMS 500 ORAL) Take by mouth. - guaifenesin/dextromet horphan (GUAIFENESIN DM ORAL) Take by mouth. - metoprolol tartrate, short acting, (LOPRESSOR) 50 mg tablet Take 0.5 tablets by mouth twice daily. Hold for BP <90/60, HR <55 - omeprazole (PRILOSEC) 40 mg capsule Take 1 capsule by mouth once daily. - QUEtiapine (SEROQUEL) 50 mg tablet Take 1 tablet by mouth daily at bedtime. - apixaban (ELIQUIS) 5 mg tab(s) Take 1 tablet by mouth twice daily. - PARoxetine (PAXIL) 40 mg tablet Take 1 tablet by mouth once daily. - valproic acid (DEPAKENE) 250 mg capsule Take 1 capsule by mouth three times daily. - sodium chloride (NaCl) 0.9% injection solution Inject 10 mL intravenously once daily. 10ml before and after dose, 10ml before lab draw, 20ml after lab draw, up to 30ml for sluggish IV, 10ml between bag changes and 10ml daily for maintenance - potassium chloride ER (K-DUR, KLOR-CON) 20 mEq tablet Take 1 tablet by mouth twice daily. - pramoxine-hydrocortis one (PROCTOFOAM-HC) rectal foam 1 Applicator by RECTAL route twice daily. - COMPOUNDED PRESCRIPTION Power Mobility Device scooter. Face to face evaluation 12/30/2018 Diagnosis: (T84.018S, Z96.659) Failure of total knee replacement, sequela (primary encounter diagnosis) (G35) Multiple sclerosis (HCC) (T84.498D) Mechanical complication of internal orthopedic device, implant or graft, subsequent encounter (M25.561, G89.29) Chronic pain of right knee (M17.11) Osteoarthritis of right knee, unspecified osteoarthritis type (R53.1) Generalized weakness (Z74.09) Requires scooter for mobility Length of need: 99 mos/ lifetime. - ascorbic acid, vitamin C, (VITAMIN C) 500 mg tablet Take 1 tablet by mouth twice daily with meals. - polyethylene glycol 3350 (MIRALAX, GLYCOLAX) 17 gram packet Take 1 Packet by mouth once daily. Problem List As Of Date 11/10/2023 Noted Resolved Osteoarthritis of right knee [M17.11] MS (multiple sclerosis) (HCC) [G35] Essential hypertension [I10] 02/13/2016 Lumbar disc herniation [M51.26] 06/01/1983 Current smoker [F17.200] 05/28/2016 Knee pain [M25.569] 06/06/2016 Primary osteoarthritis of left knee [M17.12] 01/12/2017 Gastroesophageal reflux disease without esophag*01/16/2017 Headache [R51.9] 01/16/2017 S/P total knee arthroplasty [Z96.659] 01/28/2017 Extensor tendon disruption [M67.89] 03/24/2017 SUMMARY 04/03/2017 04/17/2017 Knee pain, right [M25.561] 04/03/2017 Status post total knee replacement using cement*04/16/2017 04/21/2017 Acute pain of right knee [M25.561] 04/16/2017 04/21/2017 Patellar dislocation, right, initial encounter *04/20/2017 04/21/2017 S/P total knee arthroplasty, right [Z96.651] 06/25/2017 07/08/2017 Acute pain of right knee [M25.561] 06/25/2017 07/08/2017 S/P iván (more content not included)... Normal [facility] 11-09-2023 Erythrocyte distribution width (RBC) [Ratio] 14.4 % 11.7 - 15.0 % [facility] Hematocrit (Bld) [Volume fraction] 49.8 % Abnormal 35 - 47 % [facility] Hemoglobin (Bld) [Mass/Vol] 15.4 g/dL [facility] MCH (RBC) [Entitic mass] 32.3 pG 27 - [address] [facility] MCHC (RBC) [Mass/Vol] 30.9 g/dL Abnormal 33 - 37 g/dL [facility] MCV (RBC) [Entitic vol] 104.4 fL Abnormal 80 - [address] [facility] Platelet mean volume (Bld) [Entitic vol] 10.4 fL 7.4 - 10.[address] [facility] Platelets (Bld) [#/Vol] 222 10*3/uL [facility] RBC (Bld) [#/Vol] 4.77 10*6/uL [facility] RDW-SD 55.9 [facility] WBC (Bld) [#/Vol] 6.9 10*3/uL [facility] CMP (EXTERNAL)Ordered By: Angeline Rahman on 11-09-2023 Albumin [Mass/Vol] 3.3 g/dL [facility] Alk Phos Total 102 U/L 45 - 117 U/L [facility] ALT [Catalytic activity/Vol] 19 U/L 12 - 78 U/L [facility] AST [Catalytic activity/Vol] 24 U/L 8 - 37 U/L [facility] Bili Total 0.50 mg/dL 0.2 - 1 mg/dL [facility] Calcium [Mass/Vol] 9 mg/dL 8.5 - 10. 1 mg/dL [facility] Chloride [Moles/Vol] 106 mmol/L [facility] CO2 [Moles/Vol] 27 mmol/L [facility] Creatinine [Mass/Vol] 0.87 mg/dL [facility] GFR 69 mL/MIN [facility] GFR AFR AMER 83 mL/MIN [facility] Glucose [Mass/Vol] 119 mg/dL Abnormal [facility] Potassium [Moles/Vol] 4.4 mmol/L 3.5 - 5.1 mmol/L [facility] Protein [Mass/Vol] 7.8 g/dL [facility] Urea nitrogen [Mass/Vol] 19 mg/dL Abnormal [facility] No Panel InformationOrdered By: Fadumo Rahman on 11-09-2023 Interpretation and review of laboratory results Abnormal [facility] CNPNon 10-12-2023 [facility] Telephone (MILY) CHARLIE NGUYEN ([id number]) 1955 F T Date Time Provider Department 10/12/23 MORENO OATES During your visit today, we recorded the following information about you: Roderick Gaviria LPN 10/12/2023 4:53 PM Signed Received lab results from [facility]. Placed in provider's inbox for review. Route to [place] scanning Allergies As of Date: 10/12/2023 Noted Allergy Reaction NSAIDS (NON-STEROIDAL ANTI-INFLAM* 7 8 - GI Upset GABAPENTIN 10/07/2018 8 - GI Upset MACROBID (NITROFURANTOIN MONOHYD/*02/13/2016 4 - Hives TRAMADOL 01/22/2017 15 - Contraindication-Medi mike Pierre* Comments: Drug interaction with amitriptyline - told not to take due to increased seizure risk NORCO (HYDROCODONE-ACETAMIN OPHEN) 08/14/2016 8 - GI Upset Comments: Didn't do anything for her pain Date Reviewed: 08/11/2022 Reviewed by: Leigh Calix MA - Fully Assessed Reason for Visit: Outside Lab Results [[id number]] Cmt: [facility] 10/12/23 Prescriptions as of 10/12/2023 - pantoprazole DR (PROTONIX) 40 mg tablet Take 1 tablet by mouth once daily. - diclofenac (VOLTAREN) 1 % topical gel Apply 4 g to affected area four times daily. To back - diazePAM (VALIUM) 5 mg tablet Take 1 tablet by mouth two times a day for 30 days. - oxyCODONE-acetaminoph en (PERCOCET) 5-325 mg tablet Take 1 tablet by mouth every 6 hours for 30 days. - pregabalin (LYRICA) 150 mg capsule Take 1 capsule by mouth two times a day for 30 days. - ondansetron (ZOFRAN) 8 mg tablet Take 1 tablet by mouth every 8 hours as needed for nausea/vomiting. - doxycycline hyclate (VIBRAMYCIN) 100 mg capsule Take 1 capsule by mouth twice daily for 7 days. - guaiFENesin (MUCINEX) 600 mg 12 hr tablet Take 1 tablet by mouth twice daily. - pravastatin (PRAVACHOL) 10 mg tablet Take 10 mg by mouth once daily. - nystatin (MYCOSTATIN) cream Apply to affected area twice daily. - furosemide (LASIX) 20 mg tablet Take 20 mg by mouth twice daily. - acetaminophen 325 mg cap Take by mouth. - loperamide HCl (IMODIUM A-D) 2 mg tab Take 2 mg by mouth as needed. - calcium carbonate (TUMS 500 ORAL) Take by mouth. - guaifenesin/dextromet horphan (GUAIFENESIN DM ORAL) Take by mouth. - metoprolol tartrate, short acting, (LOPRESSOR) 50 mg tablet Take 0.5 tablets by mouth twice daily. Hold for BP <90/60, HR <55 - omeprazole (PRILOSEC) 40 mg capsule Take 1 capsule by mouth once daily. - QUEtiapine (SEROQUEL) 50 mg tablet Take 1 tablet by mouth daily at bedtime. - apixaban (ELIQUIS) 5 mg tab(s) Take 1 tablet by mouth twice daily. - PARoxetine (PAXIL) 40 mg tablet Take 1 tablet by mouth once daily. - valproic acid (DEPAKENE) 250 mg capsule Take 1 capsule by mouth three times daily. - sodium chloride (NaCl) 0.9% injection solution Inject 10 mL intravenously once daily. 10ml before and after dose, 10ml before lab draw, 20ml after lab draw, up to 30ml for sluggish IV, 10ml between bag changes and 10ml daily for maintenance - potassium chloride ER (K-DUR, KLOR-CON) 20 mEq tablet Take 1 tablet by mouth twice daily. - pramoxine-hydrocortis one (PROCTOFOAM-HC) rectal foam 1 Applicator by RECTAL route twice daily. - COMPOUNDED PRESCRIPTION Power Mobility Device scooter. Face to face evaluation 12/30/2018 Diagnosis: (T84.018S, Z96.659) Failure of total knee replacement, sequela (primary encounter diagnosis) (G35) Multiple sclerosis (HCC) (T84.498D) Mechanical complication of internal orthopedic device, implant or graft, subsequent encounter (M25.561, G89.29) Chronic pain of right knee (M17.11) Osteoarthritis of right knee, unspecified osteoarthritis type (R53.1) Generalized weakness (Z74.09) Requires scooter for mobility Length of need: 99 mos/ lifetime. - ascorbic acid, vitamin C, (VITAMIN C) 500 mg tablet Take 1 tablet by mouth twice daily with meals. - polyethylene glycol 3350 (MIRALAX, GLYCOLAX) 17 gram packet Take 1 Packet by mouth once daily. Problem List As Of Date 10/12/2023 Noted Resolved Osteoarthritis of right knee [M17.11] MS (multiple sclerosis) (HCC) [G35] Essential hypertension [I10] 02/13/2016 Lumbar disc herniation [M51.26] 06/01/1983 Current smoker [F17.200] 05/28/2016 Knee pain [M25.569] 06/06/2016 Primary osteoarthritis of left knee [M17.12] 01/12/2017 Gastroesophageal reflux disease without esophag*01/16/2017 Headache [R51.9] 01/16/2017 S/P total knee arthroplasty [Z96.659] 01/28/2017 Extensor tendon disruption [M67.89] 03/24/2017 SUMMARY 04/03/2017 04/17/2017 Knee pain, right [M25.561] 04/03/2017 Status post total knee replacement using cement*04/16/2017 04/21/2017 Acute pain of right knee [M25.561] 04/16/2017 04/21/2017 Patellar dislocation, right, initial encounter *04/20/2017 04/21/2017 S/P total knee arthroplasty, right [Z96.651] 06/25/2017 07/08/2017 Acute pain of right knee [M25.561] 06/25/2017 07/08/2017 S/P re (more content not included)... Normal [facility] CNPNon 09-11-2023 CNPN Telephone (FPWADS) CHARLIE NGUYEN ([id number]) 1955 F T Date Time Provider Department 09/11/23 MORENO OATES FPWADS During your visit today, we recorded the following information about you: Moreno Oates MD 09/11/2023 5:23 PM Signed The following approved medication requests have been transmitted electronically. Requested Prescriptions Signed Prescriptions Disp Refills ondansetron (ZOFRAN) 8 mg tablet 90 tablet 5 Sig: Take 1 tablet by mouth every 8 hours as needed for nausea/vomiting. Authorizing Provider: MORENO OATES Pharmacy Information Pharmacy Address Telephone [facility] [email or web address] [address] Moreno Oates MD Allergies As of Date: 09/11/2023 Noted Allergy Reaction NSAIDS (NON-STEROIDAL ANTI-INFLAM* 7 8 - GI Upset GABAPENTIN 10/07/2018 8 - GI Upset MACROBID (NITROFURANTOIN MONOHYD/*02/13/2016 4 - Hives TRAMADOL 01/22/2017 15 - Contraindication-Medi mike Pierre* Comments: Drug interaction with amitriptyline - told not to take due to increased seizure risk NORCO (HYDROCODONE-ACETAMIN OPHEN) 08/14/2016 8 - GI Upset Comments: Didn't do anything for her pain Date Reviewed: 08/11/2022 Reviewed by: Camas, Leigh, MA - Fully Assessed Reason for Visit: Received Outside Medical Records [[id number]] Cmt: [facility] Order to increase Zofran from 4 mg to 8 mg Q8 hr prn Order(s):ondansetron (ZOFRAN) 8 mg tabletTake 1 tablet by mouth every 8 hours as needed for nausea/vomiting.Disp: 90 tabletRfl: 5 Prescriptions as of 09/24/2023 - ondansetron (ZOFRAN) 8 mg tablet Take 1 tablet by mouth every 8 hours as needed for nausea/vomiting. - oxyCODONE-acetaminoph en (PERCOCET) 5-325 mg tablet Take 1 tablet by mouth every 6 hours for 30 days. - diazePAM (VALIUM) 5 mg tablet Take 1 tablet by mouth two times a day for 30 days. - pregabalin (LYRICA) 150 mg capsule Take 1 capsule by mouth two times a day for 30 days. - doxycycline hyclate (VIBRAMYCIN) 100 mg capsule Take 1 capsule by mouth twice daily for 7 days. - guaiFENesin (MUCINEX) 600 mg 12 hr tablet Take 1 tablet by mouth twice daily. - pantoprazole DR (PROTONIX) 40 mg tablet Take 40 mg by mouth once daily. - pravastatin (PRAVACHOL) 10 mg tablet Take 10 mg by mouth once daily. - nystatin (MYCOSTATIN) cream Apply to affected area twice daily. - furosemide (LASIX) 20 mg tablet Take 20 mg by mouth twice daily. - acetaminophen 325 mg cap Take by mouth. - loperamide HCl (IMODIUM A-D) 2 mg tab Take 2 mg by mouth as needed. - calcium carbonate (TUMS 500 ORAL) Take by mouth. - guaifenesin/dextromet horphan (GUAIFENESIN DM ORAL) Take by mouth. - metoprolol tartrate, short acting, (LOPRESSOR) 50 mg tablet Take 0.5 tablets by mouth twice daily. Hold for BP <90/60, HR <55 - omeprazole (PRILOSEC) 40 mg capsule Take 1 capsule by mouth once daily. - QUEtiapine (SEROQUEL) 50 mg tablet Take 1 tablet by mouth daily at bedtime. - diclofenac sodium (VOLTAREN) 1 % topical gel Apply 4 g to affected area four times daily. To back - apixaban (ELIQUIS) 5 mg tab(s) Take 1 tablet by mouth twice daily. - PARoxetine (PAXIL) 40 mg tablet Take 1 tablet by mouth once daily. - valproic acid (DEPAKENE) 250 mg capsule Take 1 capsule by mouth three times daily. - sodium chloride (NaCl) 0.9% injection solution Inject 10 mL intravenously once daily. 10ml before and after dose, 10ml before lab draw, 20ml after lab draw, up to 30ml for sluggish IV, 10ml between bag changes and 10ml daily for maintenance - potassium chloride ER (K-DUR, KLOR-CON) 20 mEq tablet Take 1 tablet by mouth twice daily. - pramoxine-hydrocortis one (PROCTOFOAM-HC) rectal foam 1 Applicator by RECTAL route twice daily. - COMPOUNDED PRESCRIPTION Power Mobility Device scooter. Face to face evaluation 12/30/2018 Diagnosis: (T84.018S, Z96.659) Failure of total knee replacement, sequela (primary encounter diagnosis) (G35) Multiple sclerosis (HCC) (T84.498D) Mechanical complication of internal orthopedic device, implant or graft, subsequent encounter (M25.561, G89.29) Chronic pain of right knee (M17.11) Osteoarthritis of right knee, unspecified osteoarthritis type (R53.1) Generalized weakness (Z74.09) Requires scooter for mobility Length of need: 99 mos/ lifetime. - ascorbic acid, vitamin C, (VITAMIN C) 500 mg tablet Take 1 tablet by mouth twice daily with meals. - polyethylene glycol 3350 (MIRALAX, GLYCOLAX) 17 gram packet Take 1 Packet by mouth once daily. Problem List As Of Date 09/11/2023 Noted Resolved Osteoarthritis of right knee [M17.11] MS (multiple sclerosis) (HCC) [G35] Essential hypertension [I10] 02/13/2016 Lumbar disc herniation [M51.26] 06/01/1983 Current smoker [F17.200] 05/28/2016 Knee pain [M25.569] 06/06/2016 Primary osteoarthritis of left knee [M17.12] 01/12/2017 Gastroesophageal refl (more content not included)... Normal [facility] 08-11-2023 BENJAMINN Telephone (FPWADS) CHARLIE NGUYEN ([id number]) 1955 F CHT Date Time Provider Department 08/11/23 MORENO OATES During your visit today, we recorded the following information about you: Roderick Gaviria LPN 08/11/2023 8:34 AM Signed Received lab results from [facility]/ [facility]. Placed in provider's inbox for review. Route to [place] scanning Allergies As of Date: 08/11/2023 Noted Allergy Reaction NSAIDS (NON-STEROIDAL ANTI-INFLAM* 7 8 - GI Upset GABAPENTIN 10/07/2018 8 - GI Upset MACROBID (NITROFURANTOIN MONOHYD/*02/13/2016 4 - Hives TRAMADOL 01/22/2017 15 - Contraindication-Medi mike Pierre* Comments: Drug interaction with amitriptyline - told not to take due to increased seizure risk NORCO (HYDROCODONE-ACETAMIN OPHEN) 08/14/2016 8 - GI Upset Comments: Didn't do anything for her pain Date Reviewed: 08/11/2022 Reviewed by: Leigh Calix MA - Fully Assessed Reason for Visit: Outside Labs Results [437] Cmt: [facility]/ [facility] Prescriptions as of 08/11/2023 - oxyCODONE-acetaminoph en (PERCOCET) 5-325 mg tablet Take 1 tablet by mouth every 6 hours for 30 days. - diazePAM (VALIUM) 5 mg tablet Take 1 tablet by mouth two times a day for 30 days. - pregabalin (LYRICA) 150 mg capsule Take 1 capsule by mouth two times a day for 30 days. - doxycycline hyclate (VIBRAMYCIN) 100 mg capsule Take 1 capsule by mouth twice daily for 7 days. - guaiFENesin (MUCINEX) 600 mg 12 hr tablet Take 1 tablet by mouth twice daily. - pantoprazole DR (PROTONIX) 40 mg tablet Take 40 mg by mouth once daily. - pravastatin (PRAVACHOL) 10 mg tablet Take 10 mg by mouth once daily. - nystatin (MYCOSTATIN) cream Apply to affected area twice daily. - furosemide (LASIX) 20 mg tablet Take 20 mg by mouth twice daily. - acetaminophen 325 mg cap Take by mouth. - loperamide HCl (IMODIUM A-D) 2 mg tab Take 2 mg by mouth as needed. - calcium carbonate (TUMS 500 ORAL) Take by mouth. - guaifenesin/dextromet horphan (GUAIFENESIN DM ORAL) Take by mouth. - metoprolol tartrate, short acting, (LOPRESSOR) 50 mg tablet Take 0.5 tablets by mouth twice daily. Hold for BP <90/60, HR <55 - omeprazole (PRILOSEC) 40 mg capsule Take 1 capsule by mouth once daily. - QUEtiapine (SEROQUEL) 50 mg tablet Take 1 tablet by mouth daily at bedtime. - diclofenac sodium (VOLTAREN) 1 % topical gel Apply 4 g to affected area four times daily. To back - apixaban (ELIQUIS) 5 mg tab(s) Take 1 tablet by mouth twice daily. - PARoxetine (PAXIL) 40 mg tablet Take 1 tablet by mouth once daily. - valproic acid (DEPAKENE) 250 mg capsule Take 1 capsule by mouth three times daily. - sodium chloride (NaCl) 0.9% injection solution Inject 10 mL intravenously once daily. 10ml before and after dose, 10ml before lab draw, 20ml after lab draw, up to 30ml for sluggish IV, 10ml between bag changes and 10ml daily for maintenance - potassium chloride ER (K-DUR, KLOR-CON) 20 mEq tablet Take 1 tablet by mouth twice daily. - pramoxine-hydrocortis one (PROCTOFOAM-HC) rectal foam 1 Applicator by RECTAL route twice daily. - COMPOUNDED PRESCRIPTION Power Mobility Device scooter. Face to face evaluation 12/30/2018 Diagnosis: (T84.018S, Z96.659) Failure of total knee replacement, sequela (primary encounter diagnosis) (G35) Multiple sclerosis (HCC) (T84.498D) Mechanical complication of internal orthopedic device, implant or graft, subsequent encounter (M25.561, G89.29) Chronic pain of right knee (M17.11) Osteoarthritis of right knee, unspecified osteoarthritis type (R53.1) Generalized weakness (Z74.09) Requires scooter for mobility Length of need: 99 mos/ lifetime. - ascorbic acid, vitamin C, (VITAMIN C) 500 mg tablet Take 1 tablet by mouth twice daily with meals. - ondansetron (ZOFRAN) 4 mg tablet Take 1 tablet by mouth every 8 hours as needed for Nausea/Vomiting. - polyethylene glycol 3350 (MIRALAX, GLYCOLAX) 17 gram packet Take 1 Packet by mouth once daily. Problem List As Of Date 08/11/2023 Noted Resolved Osteoarthritis of right knee [M17.11] MS (multiple sclerosis) ([facility]) [G35] Essential hypertension [I10] 02/13/2016 Lumbar disc herniation [M51.26] 06/01/1983 Current smoker [F17.200] 05/28/2016 Knee pain [M25.569] 06/06/2016 Primary osteoarthritis of left knee [M17.12] 01/12/2017 Gastroesophageal reflux disease without esophag*01/16/2017 Headache [R51.9] 01/16/2017 S/P total knee arthroplasty [Z96.659] 01/28/2017 Extensor tendon disruption [M67.89] 03/24/2017 SUMMARY 04/03/2017 04/17/2017 Knee pain, right [M25.561] 04/03/2017 Status post total knee replacement using cement*04/16/2017 04/21/2017 Acute pain of right knee [M25.561] 04/16/2017 04/21/2017 Patellar dislocation, right, initial encounter *04/20/2017 04/21/2017 S/P total knee arthroplasty, right [Z96.651] 06/25/2017 07/08/2017 Acute pain of right knee [M25.561] 06/25/2017 (more content not included)... Normal [facility] Basophil percentageOrdered B y: Ender Gracie on 08-10-2023 Bilirubin [Mass/Vol] 0.40 mg/dL 0.20-1.00 [facility] Comment on above: For patients on eltr ombopag therapy, use of Dimension [place] TBIL is not recommended. Chloride [Moles/Vol] 104 mmol/L 98-107 [facility] Cholesterol [Mass/Vol] 174 mg/dL <200 [facility] Comment on above: <200 mg/dL Desirable 200-240 mg/dL Borderline >240 mg/dL High Risk Glucose [Mass/Vol] 102 mg/dL 74-106 [facility] Comment on above: Fasting Glucose resu lt from 100 to 125 mg/dL suggests IMPAIRED HOMEOSTASIS per A.D.A. criteria. Hemoglobin (Bld) [Mass/Vol] 14.9 g/dL 12.0-15.0 [facility] Potassium [Moles/Vol] 4.2 mmol/L 3.5-5.1 [facility] Protein [Mass/Vol] 7.5 g/dL 6.4-8.2 [facility] Sodium [Moles/Vol] 139 mmol/L 136-145 [facility] Triglyceride [Mass/Vol] 265 mg/dL <199 [facility] Comment on above: The drugs N-Acetylcy steine and Metamizole may falsely depress this assay.Serum Triglycerides Reference Interval Normal <150 mg/dL Borderline high 150 - 199 mg/dL High 200 - 499 mg/dL Very High > or = 500 mg/dL WBC (Bld) [#/Vol] 7.7 10*3/uL 4.4-11.0 [facility] Determination of erythrocyte mean corpuscular volume (MCV)Ordered By: Ender Oates on 08-10-2023 MCV (RBC) [Entitic vol] 100.2 fL 81-99 [facility] Erythrocyte distribution wid th ratioOrdered By: Ender Oates on 08-10-2023 Erythrocyte distribution width (RBC) [Ratio] 14.6 % 11.6-14.6 [facility] Erythrocyte distribution wid th standard deviationOrdered By: Ender Oates on 08-10-2023 Erythrocyte distribution width (RBC) [Entitic vol] 54.9 fL 35.1-43.9 [facility] Hematocrit Auto (Bld) [Volum e fraction]Ordered By: Ender Oates on 08-10-2023 Hematocrit (Bld) [Volume fraction] 46.5 % 37-47 [facility] Laboratory - Chemistry and C hemistry - challengeOrdered By: Ender Oates on 08-10-2023 Albumin/Globulin [Mass ratio] 0.7 {ratio} 0.9-2.4 [facility] ALP [Catalytic activity/Vol] 93 U/L 45-117 [facility] ALT [Catalytic activity/Vol] 18 U/L 13-56 [facility] Cholesterol in HDL [Mass/Vol] 59 mg/dL >40 [facility] Comment on above: The drugs N-Acetylcy steine and Metamizole may falsely depress this assay. Reference Range HDL <40 mg/dL Low HDL Cholesterol HDL >or= 60 mg/dL High HDL Cholesterol Cholesterol in LDL [Mass/Vol] 62 mg/dL 0-130 [facility] CO2 [Moles/Vol] 28.0 mmol/L 21.0-32.0 [facility] Globulin (S) [Mass/Vol] 4.3 g/dL 2.2-4.2 [facility] Urea nitrogen/Creatinine [Mass ratio] 26.5 mg/mg 10-20 [facility] - Hematology and Cell countsOrdered By: Ender Oates on 08-10-2023 MCH (RBC) [Entitic mass] 32.1 pg 27.0-32.0 [facility] MCHC (RBC) [Mass/Vol] 32.0 g/dL 32-36 [facility] Platelet mean volume (Bld) [Entitic vol] 10.2 fL 6.2-12.0 [facility] Platelets (Bld) [#/Vol] 237 10*3/uL 150-450 [facility] No Panel InformationOrdered By: Ender Oates on 08-10-2023 Estimated GFR (MDRD) Amer 62 mL/min >60 [facility] Comment on above: GFR Calc Estimated GFR (MDRD) Non-Af Amer 51 mL/min >60 [facility] Comment on above: Non- GFR Calc VLDL Cholesterol 53 mg/dL 5-40 [facility] RBC Auto (Bld) [#/Vol]Ordere d By: Ender Oates on 08-10-2023 RBC (Bld) [#/Vol] 4.64 10*6/uL 4.2-5.4 [facility] Serum or plasma calcium tammie urement (mass/volume)Ordered By: Ender Oates on 08-10-2023 Calcium [Mass/Vol] 9.6 mg/dL 8.5-10.1 [facility] Serum or plasma creatinine m easurement (mass/volume)Ordered By: Ender Oates on 08-10-2023 Creatinine [Mass/Vol] 1.13 mg/dL 0.55-1.02 [facility] Comment on above: The validity of the calculated GFR & GFRAA in patients over 70 years has not been determined. Clinical correlation is essential. Serum or plasma urea nitroge n measurement (mass/volume)Ordered By: Ender Oates on 08-10-2023 Urea nitrogen [Mass/Vol] 30 mg/dL 7-18 [facility] Thin prep Papanicolaou smear with manual screeningOrdered By: Ender Oates on 08-10-2023 Thin prep Papanicolaou smear with manual screening 3.2 g/dL 3.2-5.0 [facility] Thin prep Papanicolaou smear with manual screening 15 U/L 15-37 [facility] Thin prep Papanicolaou smear with manual screening 7 5-15 [facility] Basophil percentageOrdered B y: Ender Oates on 07-13-2023 Bilirubin [Mass/Vol] 0.70 mg/dL 0.20-1.00 [facility] Comment on above: For patients on eltr ombopag therapy, use of Dim[place] TBIL is not recommended. Chloride [Moles/Vol] 108 mmol/L 98-107 [facility] Glucose [Mass/Vol] 91 mg/dL 74-106 [facility] Hemoglobin (Bld) [Mass/Vol] 14.8 g/dL 12.0-15.0 [facility] Potassium [Moles/Vol] 4.7 mmol/L 3.5-5.1 [facility] Protein [Mass/Vol] 7.6 g/dL 6.4-8.2 [facility] Sodium [Moles/Vol] 141 mmol/L 136-145 [facility] WBC (Bld) [#/Vol] 5.6 10*3/uL 4.4-11.0 [facility] Determination of erythrocyte mean corpuscular volume (MCV)Ordered By: Ender Oates on 07-13-2023 MCV (RBC) [Entitic vol] 100.9 fL 81-99 [facility] Erythrocyte distribution wid th ratioOrdered By: Ender Oates on 07-13-2023 Erythrocyte distribution width (RBC) [Ratio] 15.4 % 11.6-14.6 [facility] Erythrocyte distribution wid th standard deviationOrdered By: Ender Oates on 07-13-2023 Erythrocyte distribution width (RBC) [Entitic vol] 57.7 fL 35.1-43.9 [facility] Hematocrit Auto (Bld) [Volum e fraction]Ordered By: Ender Oates on 07-13-2023 Hematocrit (Bld) [Volume fraction] 47.1 % 37-47 [facility] - Chemistry and C hemistry - challengeOrdered By: Ender Oates on 07-13-2023 Albumin/Globulin [Mass ratio] 0.8 {ratio} 0.9-2.4 [facility] ALP [Catalytic activity/Vol] 84 U/L 45-117 [facility] ALT [Catalytic activity/Vol] 21 U/L 13-56 [facility] CO2 [Moles/Vol] 27.0 mmol/L 21.0-32.0 [facility] Globulin (S) [Mass/Vol] 4.3 g/dL 2.2-4.2 [facility] Urea nitrogen/Creatinine [Mass ratio] 29.3 mg/mg 10-20 [facility] - Hematology and Cell countsOrdered By: Ender Oates on 07-13-2023 MCH (RBC) [Entitic mass] 31.7 pg 27.0-32.0 [facility] MCHC (RBC) [Mass/Vol] 31.4 g/dL 32-36 [facility] Platelet mean volume (Bld) [Entitic vol] 10.6 fL 6.2-12.0 [facility] Platelets (Bld) [#/Vol] 200 10*3/uL 150-450 [facility] No Panel InformationOrdered By: Ender Oates on 07-13-2023 Estimated GFR (MDRD) Amer 94 mL/min >60 [facility] Comment on above: GFR Calc Estimated GFR (MDRD) Non-Af Amer 78 mL/min >60 [facility] Comment on above: Non- GFR Calc RBC Auto (Bld) [#/Vol]Ordere d By: Ender Oates on 07-13-2023 RBC (Bld) [#/Vol] 4.67 10*6/uL 4.2-5.4 [facility] Serum or plasma calcium tammie urement (mass/volume)Ordered By: Ender Oates on 07-13-2023 Calcium [Mass/Vol] 9.2 mg/dL 8.5-10.1 [facility] Serum or plasma creatinine m easurement (mass/volume)Ordered By: Ender Oates on 07-13-2023 Creatinine [Mass/Vol] 0.78 mg/dL 0.55-1.02 [facility] Comment on above: The validity of the calculated GFR & GFRAA in patients over 70 years has not been determined. Clinical correlation is essential. Serum or plasma urea nitroge n measurement (mass/volume)Ordered By: Ender Oates on 07-13-2023 Urea nitrogen [Mass/Vol] 23 mg/dL 7-18 [facility] Thin prep Papanicolaou smear with manual screeningOrdered By: Ender Oates on 07-13-2023 Thin prep Papanicolaou smear with manual screening 3.3 g/dL 3.2-5.0 [facility] Thin prep Papanicolaou smear with manual screening 18 U/L 15-37 [facility] Thin prep Papanicolaou smear with manual screening 6 5-15 [facility] Basophil percentageOrdered B y: Ender Oates on 06-08-2023 Bilirubin [Mass/Vol] 0.40 mg/dL 0.20-1.00 [facility] Comment on above: For patients on eltr ombopag therapy, use of Dim[place] TBIL is not recommended. Chloride [Moles/Vol] 105 mmol/L 98-107 [facility] Glucose [Mass/Vol] 90 mg/dL 74-106 [facility] Potassium [Moles/Vol] 4.8 mmol/L 3.5-5.1 [facility] Protein [Mass/Vol] 7.3 g/dL 6.4-8.2 [facility] Sodium [Moles/Vol] 138 mmol/L 136-145 [facility] WBC (Bld) [#/Vol] 6.9 10*3/uL 4.4-11.0 [facility] Blood erythrocytes count (nu mber/volume)Ordered By: Ender Oates on 06-08-2023 RBC (Bld) [#/Vol] 4.60 10*6/uL 4.2-5.4 [facility] Blood hemoglobin measurement (mass/volume)Ordered By: Ender Oates on 06-08-2023 Hemoglobin (Bld) [Mass/Vol] 14.4 g/dL 12.0-15.0 [facility] Blood platelet mean volumeOr dered By: Ender Oates on 06-08-2023 Platelet mean volume (Bld) [Entitic vol] 10.9 fL 6.2-12.0 [facility] Determination of erythrocyte mean corpuscular volume (MCV)Ordered By: Ender Oates on 06-08-2023 MCV (RBC) [Entitic vol] 103.0 fL 81-99 [facility] Hematocrit Auto (Bld) [Volum e fraction]Ordered By: Ender Oates on 06-08-2023 Hematocrit (Bld) [Volume fraction] 47.4 % 37-47 [facility] - Chemistry and C hemistry - challengeOrdered By: Ender Oates on 06-08-2023 ALP [Catalytic activity/Vol] 90 U/L 45-117 [facility] ALT [Catalytic activity/Vol] 17 U/L 13-56 [facility] CO2 [Moles/Vol] 30.0 mmol/L 21.0-32.0 [facility] Globulin (S) [Mass/Vol] 4.2 g/dL 2.2-4.2 [facility] Urea nitrogen/Creatinine [Mass ratio] 30.5 mg/mg 10-20 [facility] Laboratory - Hematology and Cell countsOrdered By: Ender Oates on 06-08-2023 Erythrocyte distribution width (RBC) [Entitic vol] 58.5 fL 35.1-43.9 [facility] Erythrocyte distribution width (RBC) [Ratio] 15.4 % 11.6-14.6 [facility] MCH (RBC) [Entitic mass] 31.3 pg 27.0-32.0 [facility] [Mass/Vol]Or dered By: Ender Oates on 06-08-2023 MCHC (RBC) [Mass/Vol] 30.4 g/dL 32-36 [facility] No Panel InformationOrdered By: Ender Oates on 06-08-2023 Estimated GFR (MDRD) Amer 67 mL/min >60 [facility] Comment on above: GFR Calc Estimated GFR (MDRD) Non-Af Amer 56 mL/min >60 [facility] Comment on above: Non- GFR Calc Platelets bldOrdered By: Ronaldo Oates on 06-08-2023 Platelets (Bld) [#/Vol] 216 10*3/uL 150-450 [facility] Serum or plasma albumin tammie urement (mass/volume)Ordered By: Ender Oates on 06-08-2023 Albumin [Mass/Vol] 3.1 g/dL 3.2-5.0 [facility] Serum or plasma albumin/glob ulin mass ratioOrdered By: Ender Oates on 06-08-2023 Albumin/Globulin [Mass ratio] 0.7 {ratio} 0.9-2.4 [facility] Serum or plasma calcium tammie urement (mass/volume)Ordered By: Ender Oates on 06-08-2023 Calcium [Mass/Vol] 9.1 mg/dL 8.5-10.1 [facility] Serum or plasma creatinine m easurement (mass/volume)Ordered By: Ender Oates on 06-08-2023 Creatinine [Mass/Vol] 1.05 mg/dL 0.55-1.02 [facility] Comment on above: The validity of the calculated GFR & GFRAA in patients over 70 years has not been determined. Clinical correlation is essential. Serum or plasma urea nitroge n measurement (mass/volume)Ordered By: Ender Oates on 06-08-2023 Urea nitrogen [Mass/Vol] 32 mg/dL 7-18 [facility] Thin prep Papanicolaou smear with manual screeningOrdered By: Ender Oates on 06-08-2023 Thin prep Papanicolaou smear with manual screening 16 U/L 15-37 [facility] Thin prep Papanicolaou smear with manual screening 3 5-15 [facility] Automated blood hematocrit ( percentage)Ordered By: Ender Oates on 05-11-2023 Hematocrit (Bld) [Volume fraction] 41.8 % 37-47 [facility] Basophil percentageOrdered B y: Ender Oates on 05-11-2023 Bilirubin [Mass/Vol] 0.30 mg/dL 0.20-1.00 [facility] Comment on above: For patients on eltr ombopag therapy, use of Dimension [place] TBIL is not recommended. Chloride [Moles/Vol] 106 mmol/L 98-107 [facility] Glucose [Mass/Vol] 102 mg/dL 74-106 [facility] Comment on above: Fasting Glucose resu lt from 100 to 125 mg/dL suggests IMPAIRED HOMEOSTASIS per A.D.A. criteria. Potassium [Moles/Vol] 3.7 mmol/L 3.5-5.1 [facility] Protein [Mass/Vol] 6.4 g/dL 6.4-8.2 [facility] Sodium [Moles/Vol] 142 mmol/L 136-145 [facility] WBC (Bld) [#/Vol] 7.2 10*3/uL 4.4-11.0 [facility] Blood erythrocytes count (nu mber/volume)Ordered By: Ender Oates on 05-11-2023 RBC (Bld) [#/Vol] 4.15 10*6/uL 4.2-5.4 [facility] Blood hemoglobin measurement (mass/volume)Ordered By: Ender Oates on 05-11-2023 Hemoglobin (Bld) [Mass/Vol] 12.8 g/dL 12.0-15.0 [facility] Blood platelet mean volumeOr dered By: Ender Oates on 05-11-2023 Platelet mean volume (Bld) [Entitic vol] 10.8 fL 6.2-12.0 [facility] CBCon 05-11-2023 Erythrocyte distribution width (RBC) [Ratio] 14.7 % 11.7 - 15.0 % [facility] MCHC (RBC) [Mass/Vol] 31.5 g/dL 31.5 - 35.7 g/dL [facility] Platelet mean volume (Bld) [Entitic vol] 10.8 % 7.3 - 11.1 % [facility] Platelets (Bld) [#/Vol] 217 10*3/uL 140 - 440 K/uL [facility] RDW-SD 57.2 [facility] CMP (EXTERNAL)on 05-11-2023 Alk Phos Total 85 U/L 45 - 117 U/L [facility] Anion gap [Moles/Vol] 5 mmol/L [facility] AST [Catalytic activity/Vol] 19 U/L 8 - 37 U/L [facility] Bili Total 0.30 mg/dL 0.2 - 1 mg/dL [facility] CO2 [Moles/Vol] 31 mmol/L 21 - 32 MEQ/L [facility] GFR AFR AMER 83 mL/MIN [facility] GFR/1.73 sq M.predicted among non-blacks MDRD (S/P/Bld) [Vol rate/Area] 69 mL/min/{1.73_m2} [facility] Determination of erythrocyte mean corpuscular volume (MCV)Ordered By: Ender Oates on 05-11-2023 MCV (RBC) [Entitic vol] 100.7 fL 81-99 [facility] Laboratory - Chemistry and C hemistry - challengeOrdered By: Ender Oates on 05-11-2023 ALP [Catalytic activity/Vol] 85 U/L 45-117 [facility] ALT [Catalytic activity/Vol] 19 U/L 13-56 [facility] CO2 [Moles/Vol] 31.0 mmol/L 21.0-32.0 [facility] Globulin (S) [Mass/Vol] 3.7 g/dL 2.2-4.2 [facility] Urea nitrogen/Creatinine [Mass ratio] 30.9 mg/mg 10-20 [facility] Laboratory - Hematology and Cell countsOrdered By: Ender Oates on 05-11-2023 Erythrocyte distribution width (RBC) [Entitic vol] 57.2 fL 35.1-43.9 [facility] Erythrocyte distribution width (RBC) [Ratio] 15.3 % 11.6-14.6 [facility] MCH (RBC) [Entitic mass] 30.8 pG 27.0-32.0 [facility] ([facility]) [Mass/Vol]Or dered By: Ender Oates on 05-11-2023 MCHC (RBC) [Mass/Vol] 30.6 g/dL 32-36 [facility] No Panel InformationOrdered By: Ender Oates on 05-11-2023 Estimated GFR (MDRD) Amer 83 mL/min >60 [facility] Comment on above: GFR Calc Estimated GFR (MDRD) Non-Af Amer 69 mL/min >60 [facility] Comment on above: Non- GFR Calc Platelets bldOrdered By: Ronaldo Oates on 05-11-2023 Platelets (Bld) [#/Vol] 196 10*3/uL 150-450 [facility] Serum or plasma albumin tammie urement (mass/volume)Ordered By: Enedr Oates on 05-11-2023 Albumin [Mass/Vol] 2.7 g/dL 3.2-5.0 [facility] Serum or plasma albumin/glob ulin mass ratioOrdered By: Ender Oates on 05-11-2023 Albumin/Globulin [Mass ratio] 0.7 {ratio} 0.9-2.4 [facility] Serum or plasma calcium tammie urement (mass/volume)Ordered By: Ender Oates on 05-11-2023 Calcium [Mass/Vol] 8.9 mg/dL 8.5-10.1 [facility] Serum or plasma creatinine m easurement (mass/volume)Ordered By: Ender Oates on 05-11-2023 Creatinine [Mass/Vol] 0.88 mg/dL 0.55-1.02 [facility] Comment on above: The validity of the calculated GFR & GFRAA in patients over 70 years has not been determined. Clinical correlation is essential. Serum or plasma urea nitroge n measurement (mass/volume)Ordered By: Ender Oates on 05-11-2023 Urea nitrogen [Mass/Vol] 27 mg/dL 7-18 [facility] Thin prep Papanicolaou smear with manual screeningOrdered By: Ender Oates on 05-11-2023 Thin prep Papanicolaou smear with manual screening 19 U/L 15-37 [facility] Thin prep Papanicolaou smear with manual screening 5 5-15 [facility] BMP - EXTERNALon 04-13-2023 Alk Phos 78 U/L 50 - 136 U/L [facility] Anion gap [Moles/Vol] 5 mmol/L [facility] AST [Catalytic activity/Vol] 25 U/L 39 U/L [facility] Bilirubin, Total. 0.40 [facility] GFR AFR AMER 83 mL/MIN [facility] GFR/1.73 sq M.predicted among non-blacks MDRD (S/P/Bld) [Vol rate/Area] 69 mL/min/{1.73_m2} [facility] Globulin 4.2 [facility] HCO3 (Bld) [Moles/Vol] 26 mmol/L [facility] Basophil percentageOrdered B y: Ender Oates on 04-13-2023 Bilirubin [Mass/Vol] 0.40 mg/dL 0.20-1.00 [facility] Comment on above: For patients on eltr ombopag therapy, use of [place] TBIL is not recommended. Chloride [Moles/Vol] 108 mmol/L 98-107 [facility] Glucose [Mass/Vol] 98 mg/dL 74-106 [facility] Potassium [Moles/Vol] 4.5 mmol/L 3.5-5.1 [facility] Comment on above: Slight Hemolysis, Re sult may be falsely increased. Protein [Mass/Vol] 7.3 g/dL 6.4-8.2 [facility] Sodium [Moles/Vol] 139 mmol/L 136-145 [facility] WBC (Bld) [#/Vol] 6.2 10*3/uL 4.4-11.0 [facility] Blood erythrocytes count (nu mber/volume)Ordered By: Ender Oates on 04-13-2023 RBC (Bld) [#/Vol] 4.24 10*6/uL 4.2-5.4 [facility] Blood hemoglobin measurement (mass/volume)Ordered By: Ender Oates on 04-13-2023 Hemoglobin (Bld) [Mass/Vol] 13.6 g/dL 12.0-15.0 [facility] Blood platelet mean volumeOr dered By: Ender Oates on 04-13-2023 Platelet mean volume (Bld) [Entitic vol] 10.8 fL 6.2-12.0 [facility] Determination of erythrocyte mean corpuscular volume (MCV)Ordered By: Ender Oates on 04-13-2023 MCV (RBC) [Entitic vol] 101.9 fL 81-99 [facility] Hematocrit Auto (Bld) [Volum e fraction]Ordered By: Ender Oaets on 04-13-2023 Hematocrit (Bld) [Volume fraction] 43.2 % 37-47 [facility] Laboratory - Chemistry and C hemistry - challengeOrdered By: Ender Oates on 04-13-2023 ALP [Catalytic activity/Vol] 78 U/L 45-117 [facility] ALT [Catalytic activity/Vol] 20 U/L 13-56 [facility] CO2 [Moles/Vol] 26.0 mmol/L 21.0-32.0 [facility] Globulin (S) [Mass/Vol] 4.2 g/dL 2.2-4.2 [facility] Urea nitrogen/Creatinine [Mass ratio] 26.3 mg/mg 10-20 [facility] - Hematology and Cell countsOrdered By: Ender Oates on 04-13-2023 Erythrocyte distribution width (RBC) [Entitic vol] 55.5 fL 35.1-43.9 [facility] Erythrocyte distribution width (RBC) [Ratio] 14.7 % 11.6-14.6 [facility] MCH (RBC) [Entitic mass] 32.1 pg 27.0-32.0 [facility] MCHC Auto (RBC) [Mass/Vol]Or dered By: Ender Oates on 04-13-2023 MCHC (RBC) [Mass/Vol] 31.5 g/dL 32-36 [facility] No Panel InformationOrdered By: Ender Oates on 04-13-2023 Estimated GFR (MDRD) Amer 83 mL/min >60 [facility] Comment on above: GFR Calc Estimated GFR (MDRD) Non-Af Amer 69 mL/min >60 [facility] Comment on above: Non- GFR Calc Platelets bldOrdered By: Ronaldo javier Gracie on 04-13-2023 Platelets (Bld) [#/Vol] 217 10*3/uL 150-450 [facility] Serum or plasma albumin atmmie urement (mass/volume)Ordered By: Ender Oates on 04-13-2023 Albumin [Mass/Vol] 3.1 g/dL 3.2-5.0 [facility] Serum or plasma albumin/glob ulin mass ratioOrdered By: Ender Oates on 04-13-2023 Albumin/Globulin [Mass ratio] 0.7 {ratio} 0.9-2.4 [facility] Serum or plasma calcium tammie urement (mass/volume)Ordered By: Ender Oates on 04-13-2023 Calcium [Mass/Vol] 8.7 mg/dL 8.5-10.1 [facility] Serum or plasma creatinine m easurement (mass/volume)Ordered By: Ender Oates on 04-13-2023 Creatinine [Mass/Vol] 0.88 mg/dL 0.55-1.02 [facility] Comment on above: The validity of the calculated GFR & GFRAA in patients over 70 years has not been determined. Clinical correlation is essential. Serum or plasma urea nitroge n measurement (mass/volume)Ordered By: Ender Oates on 04-13-2023 Urea nitrogen [Mass/Vol] 23 mg/dL 7-18 [facility] Thin prep Papanicolaou smear with manual screeningOrdered By: Ender Oates on 04-13-2023 Thin prep Papanicolaou smear with manual screening 25 U/L 15-37 [facility] Comment on above: Slight Hemolysis, Re sult may be falsely increased. Thin prep Papanicolaou smear with manual screening 5 5-15 [facility] CBC panel Auto (Bld)on 04-06 Erythrocyte distribution width (RBC) [Ratio] 13.9 % 11.7 - 15.0 % [facility] Hematocrit (Bld) [Volume fraction] 43.2 % 35 - 47 % [facility] Hemoglobin (Bld) [Mass/Vol] 13.6 g/dL [facility] MCH (RBC) [Entitic mass] 32.1 pG 27 - [address] [facility] MCHC (RBC) [Mass/Vol] 30.6 g/dL Abnormal 31.5 - 35.7 g/dL [facility] Platelet mean volume (Bld) [Entitic vol] 10.8 % Abnormal 7.3 - 11.1 % [facility] Platelets (Bld) [#/Vol] 21.7 10*3/uL Abnormal 150 - 400 k/uL [facility] RBC (Bld) [#/Vol] 4.26 10*6/uL [facility] RDW-SD 54.2 [facility] WBC (Bld) [#/Vol] 6.2 10*3/uL [facility] Basophil percentageOrdered B y: Ender Oates on 03-09-2023 Bilirubin [Mass/Vol] 0.60 mg/dL 0.20-1.00 [facility] Comment on above: For patients on eltr ombopag therapy, use of [place] TBIL is not recommended. Chloride [Moles/Vol] 106 mmol/L 98-107 [facility] Glucose [Mass/Vol] 105 mg/dL 74-106 [facility] Comment on above: Fasting Glucose resu lt from 100 to 125 mg/dL suggests IMPAIRED HOMEOSTASIS per A.D.A. criteria. Potassium [Moles/Vol] 5.0 mmol/L 3.5-5.1 [facility] Protein [Mass/Vol] 7.1 g/dL 6.4-8.2 [facility] Sodium [Moles/Vol] 139 mmol/L 136-145 [facility] WBC (Bld) [#/Vol] 6.2 10*3/uL 4.4-11.0 [facility] Blood erythrocytes count (nu mber/volume)Ordered By: Ender Oates on 03-09-2023 RBC (Bld) [#/Vol] 4.31 10*6/uL 4.2-5.4 [facility] Blood hemoglobin measurement (mass/volume)Ordered By: Ender Oates on 03-09-2023 Hemoglobin (Bld) [Mass/Vol] 13.7 g/dL 12.0-15.0 [facility] Blood platelet mean volumeOr dered By: Ender Oates on 03-09-2023 Platelet mean volume (Bld) [Entitic vol] 11.4 fL 6.2-12.0 [facility] Determination of erythrocyte mean corpuscular volume (MCV)Ordered By: Ender Oates on 03-09-2023 MCV (RBC) [Entitic vol] 103.7 fL 81-99 [facility] Hematocrit Auto (Bld) [Volum e fraction]Ordered By: Ender Oates on 03-09-2023 Hematocrit (Bld) [Volume fraction] 44.7 % 37-47 [facility] Laboratory - Chemistry and C hemistry - challengeOrdered By: Ender Oates on 03-09-2023 ALP [Catalytic activity/Vol] 94 U/L 45-117 [facility] ALT [Catalytic activity/Vol] 16 U/L 13-56 [facility] CO2 [Moles/Vol] 28.0 mmol/L 21.0-32.0 [facility] Globulin (S) [Mass/Vol] 4.0 g/dL 2.2-4.2 [facility] Urea nitrogen/Creatinine [Mass ratio] 31.3 mg/mg 10-20 [facility] Laboratory - Hematology and Cell countsOrdered By: Ender Oates on 03-09-2023 Erythrocyte distribution width (RBC) [Entitic vol] 54.2 fL 35.1-43.9 [facility] Erythrocyte distribution width (RBC) [Ratio] 13.9 % 11.6-14.6 [facility] MCH (RBC) [Entitic mass] 31.8 pg 27.0-32.0 [facility] MCHC Auto (RBC) [Mass/Vol]Or dered By: Ender Oates on 03-09-2023 MCHC (RBC) [Mass/Vol] 30.6 g/dL 32-36 [facility] No Panel InformationOrdered By: Ender Oates on 03-09-2023 Estimated GFR (MDRD) Amer 75 mL/min >60 [facility] Comment on above: GFR Calc Estimated GFR (MDRD) Non-Af Amer 62 mL/min >60 [facility] Comment on above: Non- GFR Calc Platelets bldOrdered By: Ronaldo Oates on 03-09-2023 Platelets (Bld) [#/Vol] 216 10*3/uL 150-450 [facility] Serum or plasma albumin tammie urement (mass/volume)Ordered By: Ender Oates on 03-09-2023 Albumin [Mass/Vol] 3.1 g/dL 3.2-5.0 [facility] Serum or plasma albumin/glob ulin mass ratioOrdered By: Ender Oates on 03-09-2023 Albumin/Globulin [Mass ratio] 0.8 {ratio} 0.9-2.4 [facility] Serum or plasma calcium tammie urement (mass/volume)Ordered By: Ender Oates on 03-09-2023 Calcium [Mass/Vol] 8.7 mg/dL 8.5-10.1 [facility] Serum or plasma creatinine m easurement (mass/volume)Ordered By: Ender Oates on 03-09-2023 Creatinine [Mass/Vol] 0.96 mg/dL 0.55-1.02 [facility] Comment on above: The validity of the calculated GFR & GFRAA in patients over 70 years has not been determined. Clinical correlation is essential. Serum or plasma urea nitroge n measurement (mass/volume)Ordered By: Ender Oates on 03-09-2023 Urea nitrogen [Mass/Vol] 30 mg/dL 7-18 [facility] Thin prep Papanicolaou smear with manual screeningOrdered By: Ender Oates on 03-09-2023 Thin prep Papanicolaou smear with manual screening 14 U/L 15-37 [facility] Thin prep Papanicolaou smear with manual screening 5 5-15 [facility] Basophil percentageOrdered B y: Ender Oates on 03-07-2023 Basophil percentage 0-5 SEEN /hpf 0-5 [facility] Bilirubin Test strip Ql (U)O rdered By: Ender Oates on 03-07-2023 Bilirubin Ql (U) Negative Negative [facility] Culture, urineOrdered By: Donnie Oates on 03-07-2023 Bacteria identified Cx Nom (U) Proteus mirabilis [facility] Ketones Test strip Ql (U)Ord ered By: Ender Oates on 03-07-2023 Ketones Ql (U) Negative Negative [facility] Mucus LM Ql (Urine sed)Order ed By: Ender Oates on 03-07-2023 Mucus Ql (Urine sed) 0 SEEN /hpf [facility] Nitrite Test strip Ql (U)Ord ered By: Ender Oates on 03-07-2023 Nitrite Ql (U) Negative Negative [facility] Protein Test strip Ql (U)Ord ered By: Ender Oates on 03-07-2023 Protein Ql (U) Negative Negative [facility] Squamous epithelial cells de tection in urine sediment by light microscopyOrdered By: Ender Oates on 03-07-2023 Epithelial cells.squamous LM Ql (Urine sed) 0-5 SEEN /hpf 5-10 [facility] Urine blood detectionOrdered By: Ender Oates on 03-07-2023 RBC Ql (U) 10 /ul Negative [facility] RBC Ql (U) 0 SEEN /hpf 0-5 [facility] Urine clarityOrdered By: Ronaldo Oates on 03-07-2023 Clarity (U) Clear Clear [facility] Urine color determinationOrd ered By: Ender Oates on 03-07-2023 Color (U) Yellow Yellow [facility] Urine glucose detectionOrder ed By: Ender Oates on 03-07-2023 Glucose Ql (U) Normal mg/dl Normal [facility] Urine leukocyte esterase det ection by dipstickOrdered By: Ender Oates on 03-07-2023 Leukocyte esterase Test strip Ql (U) 100 /ul Negative [facility] Urine pHOrdered By: Ender Oates on 03-07-2023 pH (U) 6.5 [pH] 5.0 - 8.0 [facility] Urine sediment bacteria coun t by microscopy (number/high power field)Ordered By: Ender Oates on 03-07-2023 Bacteria LM.HPF (Urine sed) [#/Area] RARE /hpf None Seen [facility] Urine specific gravity measu rementOrdered By: Ender Oates on 03-07-2023 Specific gravity (U) [Rel density] 1.010 1.002-1.030 [facility] Urobilinogen Auto test strip Ql (U)Ordered By: Ender Oates on 03-07-2023 Urobilinogen Ql (U) Normal mg/dl Normal [facility] Basophil percentageOrdered B y: Ender Oates on 02-09-2023 Bilirubin [Mass/Vol] 0.50 mg/dL 0.20-1.00 [facility] Comment on above: For patients on eltr ombopag therapy, use of Dim[place] TBIL is not recommended. Chloride [Moles/Vol] 107 mmol/L 98-107 [facility] Cholesterol [Mass/Vol] 121 mg/dL <200 [facility] Comment on above: <200 mg/dL Desirable 200-240 mg/dL Borderline >240 mg/dL High Risk Glucose [Mass/Vol] 87 mg/dL 74-106 [facility] Potassium [Moles/Vol] 4.3 mmol/L 3.5-5.1 [facility] Protein [Mass/Vol] 6.5 g/dL 6.4-8.2 [facility] Sodium [Moles/Vol] 138 mmol/L 136-145 [facility] Triglyceride [Mass/Vol] 81 mg/dL <199 [facility] Comment on above: The drugs N-Acetylcy steine and Metamizole may falsely depress this assay.Serum Triglycerides Reference Interval Normal <150 mg/dL Borderline high 150 - 199 mg/dL High 200 - 499 mg/dL Very High > or = 500 mg/dL WBC (Bld) [#/Vol] 6.3 10*3/uL 4.4-11.0 [facility] Blood erythrocytes count (nu mber/volume)Ordered By: Ender Oaets on 02-09-2023 RBC (Bld) [#/Vol] 3.95 10*6/uL 4.2-5.4 [facility] Blood hemoglobin measurement (mass/volume)Ordered By: Ender Oates on 02-09-2023 Hemoglobin (Bld) [Mass/Vol] 12.9 g/dL 12.0-15.0 [facility] Blood platelet mean volumeOr dered By: Ender Oates on 02-09-2023 Platelet mean volume (Bld) [Entitic vol] 11.4 fL 6.2-12.0 [facility] Determination of erythrocyte mean corpuscular volume (MCV)Ordered By: Ender Oates on 02-09-2023 MCV (RBC) [Entitic vol] 102.8 fL 81-99 [facility] Hematocrit Auto (Bld) [Volum e fraction]Ordered By: Ender Oates on 02-09-2023 Hematocrit (Bld) [Volume fraction] 40.6 % 37-47 [facility] Laboratory - Chemistry and C hemistry - challengeOrdered By: Ender Oates on 02-09-2023 ALP [Catalytic activity/Vol] 87 U/L 45-117 [facility] ALT [Catalytic activity/Vol] 14 U/L 13-56 [facility] CO2 [Moles/Vol] 28.0 mmol/L 21.0-32.0 [facility] Globulin (S) [Mass/Vol] 3.8 g/dL 2.2-4.2 [facility] Urea nitrogen/Creatinine [Mass ratio] 26.2 mg/mg 10-20 [facility] Laboratory - Hematology and Cell countsOrdered By: Ender Oates on 02-09-2023 Erythrocyte distribution width (RBC) [Entitic vol] 53.2 fL 35.1-43.9 [facility] Erythrocyte distribution width (RBC) [Ratio] 13.8 % 11.6-14.6 [facility] MCH (RBC) [Entitic mass] 32.7 pg 27.0-32.0 [facility] MCHC Auto (RBC) [Mass/Vol]Or dered By: Ender Oates on 02-09-2023 MCHC (RBC) [Mass/Vol] 31.8 g/dL 32-36 [facility] No Panel InformationOrdered By: Ender Oates on 02-09-2023 Estimated GFR (MDRD) Amer 83 mL/min >60 [facility] Comment on above: GFR Calc Estimated GFR (MDRD) Non-Af Amer 68 mL/min >60 [facility] Comment on above: Non- GFR Calc Platelets bldOrdered By: Ronaldo Oates on 02-09-2023 Platelets (Bld) [#/Vol] 173 10*3/uL 150-450 [facility] Serum or plasma albumin tammie urement (mass/volume)Ordered By: Ender Oates on 02-09-2023 Albumin [Mass/Vol] 2.7 g/dL 3.2-5.0 [facility] Serum or plasma albumin/glob ulin mass ratioOrdered By: Ender Oates on 02-09-2023 Albumin/Globulin [Mass ratio] 0.7 {ratio} 0.9-2.4 [facility] Serum or plasma calcium tammie urement (mass/volume)Ordered By: Ender Oates on 02-09-2023 Calcium [Mass/Vol] 8.1 mg/dL 8.5-10.1 [facility] Serum or plasma cholesterol in HDL measurement (mass/volume)Ordered By: Ender Oates on 02-09-2023 Cholesterol in HDL [Mass/Vol] 55 mg/dL >40 [facility] Comment on above: The drugs N-Acetylcy steine and Metamizole may falsely depress this assay. Reference Range HDL <40 mg/dL Low HDL Cholesterol HDL >or= 60 mg/dL High HDL Cholesterol Serum or plasma cholesterol in VLDL measurement (mass/volume)Ordered By: Ender Oates on 02-09-2023 Cholesterol in VLDL [Mass/Vol] 16 mg/dL 5-40 [facility] Serum or plasma creatinine m easurement (mass/volume)Ordered By: Ender Oates on 02-09-2023 Creatinine [Mass/Vol] 0.88 mg/dL 0.55-1.02 [facility] Comment on above: The validity of the calculated GFR & GFRAA in patients over 70 years has not been determined. Clinical correlation is essential. Serum or plasma low density lipoprotein (LDL) cholesterol measurement (mass/volume)Ordered By: Ender Oates on 02-09-2023 Cholesterol in LDL [Mass/Vol] 50 mg/dL 0-130 [facility] Serum or plasma urea nitroge n measurement (mass/volume)Ordered By: Ender Oates on 02-09-2023 Urea nitrogen [Mass/Vol] 23 mg/dL 7-18 [facility] Thin prep Papanicolaou smear with manual screeningOrdered By: Ender Oates on 02-09-2023 Thin prep Papanicolaou smear with manual screening 15 U/L 15-37 [facility] Thin prep Papanicolaou smear with manual screening 3 5-15 [facility] Basophil percentageOrdered B y: Ender Oates on 01-12-2023 Bilirubin [Mass/Vol] 0.30 mg/dL 0.20-1.00 [facility] Comment on above: For patients on eltr ombopag therapy, use of Dimension [place] TBIL is not recommended. Chloride [Moles/Vol] 107 mmol/L 98-107 [facility] Glucose [Mass/Vol] 86 mg/dL 74-106 [facility] Potassium [Moles/Vol] 4.4 mmol/L 3.5-5.1 [facility] Protein [Mass/Vol] 6.3 g/dL 6.4-8.2 [facility] [facility] Sodium [Moles/Vol] 141 mmol/L 136-145 [facility] WBC (Bld) [#/Vol] 4.9 10*3/uL 4.4-11.0 [facility] Blood erythrocytes count (nu mber/volume)Ordered By: Ender Oates on 01-12-2023 RBC (Bld) [#/Vol] 3.85 10*6/uL 4.2-5.4 [facility] Blood hemoglobin measurement (mass/volume)Ordered By: Ender Oates on 01-12-2023 Hemoglobin (Bld) [Mass/Vol] 12.9 g/dL 12.0-15.0 [facility] Blood platelet mean volumeOr dered By: Ender Oates on 01-12-2023 Platelet mean volume (Bld) [Entitic vol] 11.2 fL 6.2-12.0 [facility] Determination of erythrocyte mean corpuscular volume (MCV)Ordered By: Ender Oates on 01-12-2023 MCV (RBC) [Entitic vol] 106.5 fL 81-99 [facility] Hematocrit Auto (Bld) [Volum e fraction]Ordered By: Ender Oates on 01-12-2023 Hematocrit (Bld) [Volume fraction] 41.0 % 37-47 [facility] Laboratory - Chemistry and C hemistry - challengeOrdered By: Ender Oates on 01-12-2023 ALP [Catalytic activity/Vol] 70 U/L 45-117 [facility] ALT [Catalytic activity/Vol] 18 U/L 13-56 [facility] CO2 [Moles/Vol] 31.0 mmol/L 21.0-32.0 [facility] Globulin (S) [Mass/Vol] 3.6 g/dL 2.2-4.2 [facility] Urea nitrogen/Creatinine [Mass ratio] 24.5 mg/mg 10-20 [facility] Laboratory - Hematology and Cell countsOrdered By: Ender Oates on 01-12-2023 Erythrocyte distribution width (RBC) [Entitic vol] 56.8 fL 35.1-43.9 [facility] Erythrocyte distribution width (RBC) [Ratio] 14.5 % 11.6-14.6 [facility] MCH (RBC) [Entitic mass] 33.5 pg 27.0-32.0 [facility] MCHC Auto (RBC) [Mass/Vol]Or dered By: Ender Oates on 01-12-2023 MCHC (RBC) [Mass/Vol] 31.5 g/dL 32-36 [facility] No Panel InformationOrdered By: Ender Oates on 01-12-2023 Estimated GFR (MDRD) Amer 73 mL/min >60 [facility] Comment on above: GFR Calc Estimated GFR (MDRD) Non-Af Amer 60 mL/min >60 [facility] Comment on above: Non- GFR Calc Platelets bldOrdered By: Ronaldo Oates on 01-12-2023 Platelets (Bld) [#/Vol] 171 10*3/uL 150-450 [facility] Serum or plasma albumin tammie urement (mass/volume)Ordered By: Ender Oates on 01-12-2023 Albumin [Mass/Vol] 2.7 g/dL 3.2-5.0 [facility] Serum or plasma albumin/glob ulin mass ratioOrdered By: Ender Oates on 01-12-2023 Albumin/Globulin [Mass ratio] 0.8 {ratio} 0.9-2.4 [facility] Serum or plasma calcium tammie urement (mass/volume)Ordered By: Ender Oates on 01-12-2023 Calcium [Mass/Vol] 8.7 mg/dL 8.5-10.1 [facility] Serum or plasma creatinine m easurement (mass/volume)Ordered By: Ender Oates on 01-12-2023 Creatinine [Mass/Vol] 0.98 mg/dL 0.55-1.02 [facility] Comment on above: The validity of the calculated GFR & GFRAA in patients over 70 years has not been determined. Clinical correlation is essential. Serum or plasma urea nitroge n measurement (mass/volume)Ordered By: Ender Oates on 01-12-2023 Urea nitrogen [Mass/Vol] 24 mg/dL 7-18 [facility] Thin prep Papanicolaou smear with manual screeningOrdered By: Ender Oates on 01-12-2023 Thin prep Papanicolaou smear with manual screening 17 U/L 15-37 [facility] Thin prep Papanicolaou smear with manual screening 3 5-15 [facility] Automated blood hematocrit ( percentage)Ordered By: Ender Oates on 12-30-2022 Hematocrit (Bld) [Volume fraction] 43.6 % 37-47 [facility] Basophil percentageOrdered B y: Ender Oates on 12-30-2022 Bilirubin [Mass/Vol] 0.50 mg/dL 0.20-1.00 [facility] Comment on above: For patients on eltr ombopag therapy, use of Dim[place] TBIL is not recommended. Chloride [Moles/Vol] 105 mmol/L 98-107 [facility] Glucose [Mass/Vol] 89 mg/dL 74-106 [facility] Potassium [Moles/Vol] 4.1 mmol/L 3.5-5.1 [facility] Protein [Mass/Vol] 7.4 g/dL 6.4-8.2 [facility] Sodium [Moles/Vol] 137 mmol/L 136-145 [facility] WBC (Bld) [#/Vol] 6.6 10*3/uL 4.4-11.0 [facility] Blood erythrocytes count (nu mber/volume)Ordered By: Ender Oates on 12-30-2022 RBC (Bld) [#/Vol] 4.20 10*6/uL 4.2-5.4 [facility] Blood hemoglobin measurement (mass/volume)Ordered By: Ender Oates on 12-30-2022 Hemoglobin (Bld) [Mass/Vol] 13.9 g/dL 12.0-15.0 [facility] Blood platelet mean volumeOr dered By: Ender Oates on 12-30-2022 Platelet mean volume (Bld) [Entitic vol] 12.2 fL 6.2-12.0 [facility] CBCon 12-30-2022 MCH 33.1 pG 27 - [address] [facility] MCHC 31.9 % Abnormal 32 - 36 % [facility] MPV 12.2 % Abnormal 7.3 - 11.1 % [facility] RDW-SD 56.2 [facility] CMP (EXTERNAL)on 12-30-2022 Alk Phos Total 85 U/L 45 - 117 U/L [facility] AST [Catalytic activity/Vol] 20 U/L 8 - 37 U/L [facility] Bili Total 0.50 mg/dL 0.2 - 1 mg/dL [facility] CO2 [Moles/Vol] 26 mmol/L 21 - 32 MEQ/L [facility] GFR AFR AMER 85 mL/MIN [facility] GFR/1.73 sq M.predicted among non-blacks MDRD (S/P/Bld) [Vol rate/Area] 70 mL/min/{1.73_m2} [facility] Determination of erythrocyte mean corpuscular volume (MCV)Ordered By: Ender Oates on 12-30-2022 MCV (RBC) [Entitic vol] 103.8 fL 81-99 [facility] Laboratory - Chemistry and C hemistry - challengeOrdered By: Ender Oates on 12-30-2022 ALP [Catalytic activity/Vol] 85 U/L 45-117 [facility] ALT [Catalytic activity/Vol] 18 U/L 13-56 [facility] CO2 [Moles/Vol] 26.0 mmol/L 21.0-32.0 [facility] Globulin (S) [Mass/Vol] 4.1 g/dL 2.2-4.2 [facility] Urea nitrogen/Creatinine [Mass ratio] 35.0 mg/mg 10-20 [facility] Laboratory - Hematology and Cell countsOrdered By: Ender Oates on 12-30-2022 Erythrocyte distribution width (RBC) [Entitic vol] 56.2 fL 35.1-43.9 [facility] Erythrocyte distribution width (RBC) [Ratio] 14.5 % 11.6-14.6 [facility] MCH (RBC) [Entitic mass] 33.1 pg 27.0-32.0 [facility] Laboratory - Microbiology an d Antimicrobial susceptibilityOrdered By: Ender Oates on 12-30-2022 Bacteria identified Cx Nom (Bld) No growth in 5 days. [facility] Bacteria identified Cx Nom (Bld) No growth in 5 days. [facility] MCHC Auto (RBC) [Mass/Vol]Or dered By: Ender Oates on 12-30-2022 MCHC (RBC) [Mass/Vol] 31.9 g/dL 32-36 [facility] No Panel InformationOrdered By: Ender Oates on 12-30-2022 Estimated GFR (MDRD) Amer 85 mL/min >60 [facility] Comment on above: GFR Calc Estimated GFR (MDRD) Non-Af Amer 70 mL/min >60 [facility] Comment on above: Non- GFR Calc Platelets bldOrdered By: Ronaldo Oates on 12-30-2022 Platelets (Bld) [#/Vol] 168 10*3/uL 150-450 [facility] Serum or plasma albumin tammie urement (mass/volume)Ordered By: Ender Oates on 12-30-2022 Albumin [Mass/Vol] 3.3 g/dL 3.2-5.0 [facility] Serum or plasma albumin/glob ulin mass ratioOrdered By: Ender Oates on 12-30-2022 Albumin/Globulin [Mass ratio] 0.8 {ratio} 0.9-2.4 [facility] Serum or plasma calcium tammie urement (mass/volume)Ordered By: Ender Oates on 12-30-2022 Calcium [Mass/Vol] 9.0 mg/dL 8.5-10.1 [facility] Serum or plasma creatinine m easurement (mass/volume)Ordered By: Ender Oates on 12-30-2022 Creatinine [Mass/Vol] 0.86 mg/dL 0.55-1.02 [facility] Comment on above: The validity of the calculated GFR & GFRAA in patients over 70 years has not been determined. Clinical correlation is essential. Serum or plasma urea nitroge n measurement (mass/volume)Ordered By: Ender Oates on 12-30-2022 Urea nitrogen [Mass/Vol] 30 mg/dL 7-18 [facility] Thin prep Papanicolaou smear with manual screeningOrdered By: Ender Oates on 12-30-2022 Thin prep Papanicolaou smear with manual screening 20 U/L 15-37 [facility] Thin prep Papanicolaou smear with manual screening 6 5-15 [facility] Automated blood hematocrit ( percentage)Ordered By: Ender Oates on 12-09-2022 Hematocrit (Bld) [Volume fraction] 41.4 % 37-47 [facility] Basophil percentageOrdered B y: Ender Oates on 12-09-2022 Bilirubin [Mass/Vol] 0.40 mg/dL 0.20-1.00 [facility] Comment on above: For patients on eltr ombopag therapy, use of [place] TBIL is not recommended. Chloride [Moles/Vol] 107 mmol/L 98-107 [facility] Glucose [Mass/Vol] 107 mg/dL 74-106 [facility] Comment on above: Fasting Glucose resu lt from 100 to 125 mg/dL suggests IMPAIRED HOMEOSTASIS per A.D.A. criteria. Potassium [Moles/Vol] 4.0 mmol/L 3.5-5.1 [facility] Protein [Mass/Vol] 6.3 g/dL 6.4-8.2 [facility] Sodium [Moles/Vol] 138 mmol/L 136-145 [facility] WBC (Bld) [#/Vol] 6.1 10*3/uL 4.4-11.0 [facility] Blood erythrocytes count (nu mber/volume)Ordered By: Ender Oates on 12-09-2022 RBC (Bld) [#/Vol] 3.98 10*6/uL 4.2-5.4 [facility] Blood hemoglobin measurement (mass/volume)Ordered By: Ender Oates on 12-09-2022 Hemoglobin (Bld) [Mass/Vol] 12.9 g/dL 12.0-15.0 [facility] Blood platelet mean volumeOr dered By: Ender Oates on 12-09-2022 Platelet mean volume (Bld) [Entitic vol] 11.0 fL 6.2-12.0 [facility] CBCon 12-09-2022 Hemoglobin (Bld) [Mass/Vol] 15.7 g/dL 12 - 16 g/dL [facility] MCH 32.4 pG 27 - [address] [facility] MCHC 31.2 % Abnormal 32 - 36 % [facility] MCV (RBC) [Entitic vol] 104 fL Abnormal 80 - [address] [facility] MPV 11.0 % 7.3 - 11.1 % [facility] RBC (Bld) [#/Vol] 4.76 10*6/uL [facility] RDW-SD 56.9 [facility] CMP (EXTERNAL)on 12-09-2022 Alk Phos Total 74 U/L 45 - 117 U/L [facility] AST [Catalytic activity/Vol] 10 U/L 8 - 37 U/L [facility] Bili Total 0.40 mg/dL 0.2 - 1 mg/dL [facility] CO2 [Moles/Vol] 27 mmol/L 21 - 32 MEQ/L [facility] Creatinine [Mass/Vol] 0.74 mg/dL 0.6 - 1.3 MG/DL [facility] GFR AFR AMER 101 mL/MIN [facility] GFR/1.73 sq M.predicted among non-blacks MDRD (S/P/Bld) [Vol rate/Area] 84 mL/min/{1.73_m2} [facility] Glucose [Mass/Vol] 104 mg/dL 74 - 106 MG/DL [facility] Urea nitrogen [Mass/Vol] 26 mg/dL Abnormal 7 - 18 MG/D L [facility] Determination of erythrocyte mean corpuscular volume (MCV)Ordered By: Ender Oates on 12-09-2022 MCV (RBC) [Entitic vol] 104.0 fL 81-99 [facility] Laboratory - Chemistry and C hemistry - challengeOrdered By: Ender Oates on 12-09-2022 ALP [Catalytic activity/Vol] 74 U/L 45-117 [facility] ALT [Catalytic activity/Vol] 17 U/L 13-56 [facility] CO2 [Moles/Vol] 27.0 mmol/L 21.0-32.0 [facility] Globulin (S) [Mass/Vol] 3.6 g/dL 2.2-4.2 [facility] Urea nitrogen/Creatinine [Mass ratio] 23.3 mg/mg 10-20 [facility] Laboratory - Hematology and Cell countsOrdered By: Ender Oates on 12-09-2022 Erythrocyte distribution width (RBC) [Entitic vol] 56.9 fL 35.1-43.9 [facility] Erythrocyte distribution width (RBC) [Ratio] 14.8 % 11.6-14.6 [facility] MCH (RBC) [Entitic mass] 32.4 pg 27.0-32.0 [facility] MCHC Auto (RBC) [Mass/Vol]Or dered By: Ender Oates on 12-09-2022 MCHC (RBC) [Mass/Vol] 31.2 g/dL 32-36 [facility] No Panel InformationOrdered By: Ender Oates on 12-09-2022 Estimated GFR (MDRD) Amer 60 mL/min >60 [facility] Comment on above: GFR Calc Estimated GFR (MDRD) Non-Af Amer 50 mL/min >60 [facility] Comment on above: Non- GFR Calc Platelets bldOrdered By: Ronaldo Oates on 12-09-2022 Platelets (Bld) [#/Vol] 185 10*3/uL 150-450 [facility] Serum or plasma albumin tammie urement (mass/volume)Ordered By: Ender Oates on 12-09-2022 Albumin [Mass/Vol] 2.7 g/dL 3.2-5.0 [facility] Serum or plasma albumin/glob ulin mass ratioOrdered By: Ender Oates on 12-09-2022 Albumin/Globulin [Mass ratio] 0.8 {ratio} 0.9-2.4 [facility] Serum or plasma calcium tammie urement (mass/volume)Ordered By: Ender Oates on 12-09-2022 Calcium [Mass/Vol] 8.3 mg/dL 8.5-10.1 [facility] Serum or plasma creatinine m easurement (mass/volume)Ordered By: Ender Oates on 12-09-2022 Creatinine [Mass/Vol] 1.16 mg/dL 0.55-1.02 [facility] Comment on above: The validity of the calculated GFR & GFRAA in patients over 70 years has not been determined. Clinical correlation is essential. Serum or plasma urea nitroge n measurement (mass/volume)Ordered By: Ender Oates on 12-09-2022 Urea nitrogen [Mass/Vol] 27 mg/dL 7-18 [facility] Thin prep Papanicolaou smear with manual screeningOrdered By: Ender Oates on 12-09-2022 Thin prep Papanicolaou smear with manual screening 18 U/L 15-37 [facility] Thin prep Papanicolaou smear with manual screening 4 5-15 [facility] Basophil percentageOrdered B y: Ender Oates on 11-27-2022 Bilirubin [Mass/Vol] 0.30 mg/dL 0.20-1.00 [facility] Comment on above: For patients on eltr ombopag therapy, use of [place] TBIL is not recommended. Chloride [Moles/Vol] 107 mmol/L 98-107 [facility] Glucose [Mass/Vol] 104 mg/dL 74-106 [facility] Comment on above: Fasting Glucose resu lt from 100 to 125 mg/dL suggests IMPAIRED HOMEOSTASIS per A.D.A. criteria. Potassium [Moles/Vol] 4.9 mmol/L 3.5-5.1 [facility] Comment on above: Slight Hemolysis, Re sult may be falsely increased. Protein [Mass/Vol] 7.4 g/dL 6.4-8.2 [facility] Sodium [Moles/Vol] 137 mmol/L 136-145 [facility] Laboratory - Chemistry and C hemistry - challengeOrdered By: Ender Oates on 11-27-2022 ALP [Catalytic activity/Vol] 93 U/L 45-117 [facility] ALT [Catalytic activity/Vol] 19 U/L 13-56 [facility] CO2 [Moles/Vol] 27.0 mmol/L 21.0-32.0 [facility] Globulin (S) [Mass/Vol] 4.4 g/dL 2.2-4.2 [facility] Natriuretic peptide B (Bld) [Mass/Vol] 64.0 pg/mL 0-100 [facility] Urea nitrogen/Creatinine [Mass ratio] 35.3 mg/mg 10-20 [facility] No Panel InformationOrdered By: Ender Oates on 11-27-2022 Estimated GFR (MDRD) Amer 101 mL/min >60 [facility] Comment on above: GFR Calc Estimated GFR (MDRD) Non-Af Amer 84 mL/min >60 [facility] Comment on above: Non- GFR Calc Thyroid Stimulating Hormone (TSH) 3.41 uIU/mL 0.358-3.74 [facility] Serum or plasma C reactive p rotein measurement (mass/volume)Ordered By: Ender Oates on 11-27-2022 CRP [Mass/Vol] mg/L 0.0-3.0 [facility] Comment on above: C-Reactive Protein ( CRP) provides useful information for thediagnosis, therapy and monitoring of inflammatory processesand associated diseases. For the evaluation of Relative Riskfor Cardiovascular Disease, a High Sensitivity CRP (HSCRP)should be ordered. Serum or plasma albumin tammie urement (mass/volume)Ordered By: Ender Oates on 11-27-2022 Albumin [Mass/Vol] 3.0 g/dL 3.2-5.0 [facility] Serum or plasma albumin/glob ulin mass ratioOrdered By: Ender Oates on 11-27-2022 Albumin/Globulin [Mass ratio] 0.7 {ratio} 0.9-2.4 [facility] Serum or plasma calcium tammie urement (mass/volume)Ordered By: Ender Oates on 11-27-2022 Calcium [Mass/Vol] 8.6 mg/dL 8.5-10.1 [facility] Serum or plasma creatinine m easurement (mass/volume)Ordered By: Ender Oates on 11-27-2022 Creatinine [Mass/Vol] 0.74 mg/dL 0.55-1.02 [facility] Comment on above: The validity of the calculated GFR & GFRAA in patients over 70 years has not been determined. Clinical correlation is essential. Serum or plasma urea nitroge n measurement (mass/volume)Ordered By: Ender Oates on 11-27-2022 Urea nitrogen [Mass/Vol] 26 mg/dL 7-18 [facility] Thin prep Papanicolaou smear with manual screeningOrdered By: Ender Oates on 11-27-2022 Thin prep Papanicolaou smear with manual screening 20 U/L 15-37 [facility] Comment on above: Slight Hemolysis, Re sult may be falsely increased. Thin prep Papanicolaou smear with manual screening 3 5-15 [facility] Basic metabolic 1998 panelon 11-17-2022 Anion gap [Moles/Vol] 5 mmol/L 3 - 13 mmol/L [facility] [employer] Calcium [Mass/Vol] 8.5 mg/dL 8.4 - 10. 4 mg/dL [facility] [employer] Chloride [Moles/Vol] 105 mmol/L 98 - 10 7 mmol/L [facility] [employer] CO2 [Moles/Vol] 27 mmol/L 22 - 30 mmol/L [facility] Creatinine [Mass/Vol] 0.79 mg/dL 0.52 - 1.04 mg/dL [facility] GFR/1.73 sq M.predicted MDRD (S/P/Bld) [Vol rate/Area] 82.6 mL/min/{1.73_m2} [facility] Comment on above: Calculation based on the Chronic Kidney Disease Epidemiology Collaboration (CKD-EPI) equation refit without adjustment for race Glucose [Mass/Vol] 93 mg/dL 70 - 100 mg/dL [facility] Interpretation and review of laboratory results Abnormal [facility] [employer] Potassium [Moles/Vol] 4.5 mmol/L 3.5 - 5.1 mmol/L [facility] [employer] Sodium [Moles/Vol] 137 mmol/L 135 - 145 mmol/L [facility] Urea nitrogen [Mass/Vol] 32 mg/dL High 7 - 17 mg/d L [facility] [employer] CBC W Auto Differential pane l (Bld)Ordered By: Mychal Blackwood on 11-17-2022 Basophils (Bld) [#/Vol] 0.1 10*3/uL 0.0 - 0.2 10*3/uL [facility] Basophils/100 WBC (Bld) 1.6 % 0.0 - 2.0 % [facility] Eosinophils (Bld) [#/Vol] 0.1 10*3/uL 0.0 - 0.5 10*3/uL [facility] Eosinophils/100 WBC (Bld) 0.9 % Low 1.0 - 6.0 % [facility] Erythrocyte distribution width (RBC) [Ratio] 15.2 % High 11.5 - 14.5 % [facility] Hematocrit (Bld) [Volume fraction] 45.0 % 35.0 - 47.0 % [facility] Hemoglobin (Bld) [Mass/Vol] 15.3 g/dL 11.7 - 16.0 g/dL [facility] Interpretation and review of laboratory results Abnormal [facility] Lymphocytes (Bld) [#/Vol] 1.9 10*3/uL 1.0 - 4.3 10*3/uL [facility] Lymphocytes/100 WBC (Bld) 27.2 % 20.0 - 40.0 % [facility] MCH (RBC) [Entitic mass] 33.5 pg 26. 0 - 34.0 pg [facility] MCHC (RBC) [Mass/Vol] 34.1 % 32.0 - 36.0 % [facility] MCV (RBC) [Entitic vol] 98.3 fL High 80.0 - 98.0 fL [facility] Monocytes (Bld) [#/Vol] 0.6 10*3/uL 0.0 - 0.8 10*3/uL [facility] Monocytes/100 WBC (Bld) 8.6 % 2.0 - 10.0 % [facility] Neutrophils (Bld) [#/Vol] 4.4 10*3/uL 1.8 - 7.0 10*3/uL [facility] Neutrophils/100 WBC (Bld) 61.7 % 40.0 - 80.0 % [facility] Nucleated RBC/100 WBC (Bld) [Ratio] 0.0 % [facility] Platelet mean volume (Bld) [Entitic vol] 9.5 fL 7.4 - 12.4 fL [facility] Platelets (Bld) [#/Vol] 200 10*3/uL 140 - 440 10*3/uL [facility] RBC (Bld) [#/Vol] 4.58 10*6/uL 3.8 - 5.20 10*6/uL [facility] WBC (Bld) [#/Vol] 7.1 10*3/uL 3.6 - 10.7 10*3/uL [facility] CTA Chest vessels WO and W c ontrast [place] 11-17-2022 Impression:The etiology of the symptoms is not certain. No large central embolism seen.. Report Dictated on Electronically Signed By: John Paul Boone Electronically Signed Date/Time: 11/17/2022 11:24 AM EDT [facility] EMERGENCY [facility]PARTMENT RADIOLOGY SYSTEM Patient Name: CHARLIE NGUYEN : 1955 Exam Date/Time: 11/17/2022 10:50 Procedure: CT CHEST ANGIOGRAM W AND/OR WO IV CONTRAST Ordering Provider: GOODMAN VISHNU Reason For Exam: Pulmonary embolism (PE) suspected, high prob History: Chest discomfort. Comparison: 01/15/2021 Findings: Dose reduction was employed with automated exposure control. Enhanced imaging of the chest was performed with 1 mm slices from neck to upper abdomen. 75 cc isovue 370 utilized. Additional images: 3-D imaging created and reviewed on independent platform for better detection of pathology. Airway:Grossly patent. Mediastinum and great vessels: No large central PE visualized. .No convincing adenopathy. Respiratory motion limits evaluation of more peripheral vascular structures and parenchyma. LUNGS:No major volume loss. Fibrotic appearing changes similar to previous. Spine: No convincing acute process.. Upper abdomen: No convincing evidence of acute process.. [facility] EMERGENCY DEPARTMENT RADIOLOGY SYSTEM John Paul Boone MD - 11/17/2022 Patient Name: CHARLIE NGUYEN : 1955 Exam Date/Time: 11/17/2022 10:50 Procedure: CT CHEST ANGIOGRAM W AND/OR WO IV CONTRAST Ordering Provider: GOODMAN VISHNU Reason For Exam: Pulmonary embolism (PE) suspected, high prob History: Chest discomfort. Comparison: 01/15/2021 Findings: Dose reduction was employed with automated exposure control. Enhanced imaging of the chest was performed with 1 mm slices from neck to upper abdomen. 75 cc isovue 370 utilized. Additional images: 3-D imaging created and reviewed on independent platform for better detection of pathology. Airway:Grossly patent. Mediastinum and great vessels: No large central PE visualized. .No convincing adenopathy. Respiratory motion limits evaluation of more peripheral vascular structures and parenchyma. LUNGS:No major volume loss. Fibrotic appearing changes similar to previous. Spine: No convincing acute process.. Upper abdomen: No convincing evidence of acute process.. IMPRESSION: Impression:The etiology of the symptoms is not certain. No large central embolism seen.. Report Dictated on Electronically Signed By: John Paul Boone Electronically Signed Date/Time: 11/17/2022 11:24 AM EDT [facility] [employer] Radiology Study observation (narrative) [facility] arun CTA Chest vessels WO and W c ontrast IVOrdered By: John Paul Boone on 11-17-2022 [employer] Work Phone: Laboratory - Chemistry and C hemistry - challengeon 11-17-2022 Troponin I.cardiac [Mass/Vol] ng/mL 0.000 - 0.034 ng/mL [facility] [employer] Natriuretic peptide B [Mass/ Vol]on 11-17-2022 Natriuretic peptide B (Bld) [Mass/Vol] 85 pg/mL <20 - 300 [facility] [employer] No Panel Informationon 11-17 No evidence of deep vein and superficial thrombosis in the left lower extremity. Contralateral imaging of the right common femoral vein was normal. Right Lower Venous For comparison purposes, the right common femoral vein was briefly interrogated. The vein demonstrates normal color filling and compressibility. Doppler flow was phasic and spontaneous. Left Lower Venous No evidence of deep vein and superficial thrombosis in the left lower extremity. Preliminary Report Preliminary report called to Billy Goodman DO on 11/17/2022 at 11:06 EDT. [employer] Inspector Details A chavez scale, color Doppler imaging and spectral Doppler analysis ultrasound was performed. During the study longitudinal and transverse views were obtained. Pulsed wave doppler was performed. The exam was performed with the patient in the supine position. Overall the study quality was adequate. Study was technically difficult due to: body habitus and diffuse subcutaneous edema. CV CPACS Interpretation and review of laboratory results Normal [facility] Troponin I.cardiac [Mass/Vol ]on 11-17-2022 Patients with high levels of Biotin oral intake (ie >5 mg/day) may have falsely decreased Troponin levels. [facility] Basophil percentageOrdered B y: Ender Oates on 11-10-2022 Bilirubin [Mass/Vol] 0.60 mg/dL 0.20-1.00 [facility] Comment on above: For patients on eltr ombopag therapy, use of Dimension [place] TBIL is not recommended. Chloride [Moles/Vol] 106 mmol/L 98-107 [facility] Glucose [Mass/Vol] 95 mg/dL 74-106 [facility] Potassium [Moles/Vol] 5.5 mmol/L 3.5-5.1 [facility] Protein [Mass/Vol] 7.3 g/dL 6.4-8.2 [facility] Sodium [Moles/Vol] 140 mmol/L 136-145 [facility] WBC (Bld) [#/Vol] 9.6 10*3/uL 4.4-11.0 [facility] Blood erythrocytes count (nu mber/volume)Ordered By: Ender Oates on 11-10-2022 RBC (Bld) [#/Vol] 4.76 10*6/uL 4.2-5.4 [facility] Blood hemoglobin measurement (mass/volume)Ordered By: Ender Oates on 11-10-2022 Hemoglobin (Bld) [Mass/Vol] 15.7 g/dL 12.0-15.0 [facility] Blood platelet mean volumeOr dered By: Ender Oates on 11-10-2022 Platelet mean volume (Bld) [Entitic vol] 11.7 fL 6.2-12.0 [facility] Determination of erythrocyte mean corpuscular volume (MCV)Ordered By: Ender Oates on 11-10-2022 MCV (RBC) [Entitic vol] 104.0 fL 81-99 [facility] Hematocrit Auto (Bld) [Volum e fraction]Ordered By: Ender Oates on 11-10-2022 Hematocrit (Bld) [Volume fraction] 49.5 % 37-47 [facility] - Chemistry and C hemistry - challengeOrdered By: Ender Oates on 11-10-2022 ALP [Catalytic activity/Vol] 91 U/L 45-117 [facility] ALT [Catalytic activity/Vol] 17 U/L 13-56 [facility] CO2 [Moles/Vol] 24.0 mmol/L 21.0-32.0 [facility] Globulin (S) [Mass/Vol] 3.9 g/dL 2.2-4.2 [facility] Urea nitrogen/Creatinine [Mass ratio] 34.2 mg/mg 10-20 [facility] - Hematology and Cell countsOrdered By: Ender Oates on 11-10-2022 Erythrocyte distribution width (RBC) [Entitic vol] 57.3 fL 35.1-43.9 [facility] Erythrocyte distribution width (RBC) [Ratio] 14.7 % 11.6-14.6 [facility] MCH (RBC) [Entitic mass] 33.0 pg 27.0-32.0 [facility] MCHC Auto (RBC) [Mass/Vol]Or dered By: Ender Oates on 11-10-2022 MCHC (RBC) [Mass/Vol] 31.7 g/dL 32-36 [facility] No Panel InformationOrdered By: Ender Oates on 11-10-2022 Estimated GFR (MDRD) Amer 72 mL/min >60 [facility] Comment on above: GFR Calc Estimated GFR (MDRD) Non-Af Amer 59 mL/min >60 [facility] Comment on above: Non- GFR Calc Platelets bldOrdered By: Ronaldo Oates on 11-10-2022 Platelets (Bld) [#/Vol] 206 10*3/uL 150-450 [facility] Serum or plasma albumin tammie urement (mass/volume)Ordered By: Ender Oates on 11-10-2022 Albumin [Mass/Vol] 3.4 g/dL 3.2-5.0 [facility] Serum or plasma albumin/glob ulin mass ratioOrdered By: Ender Oates on 11-10-2022 Albumin/Globulin [Mass ratio] 0.9 {ratio} 0.9-2.4 [facility] Serum or plasma calcium tammie urement (mass/volume)Ordered By: Ender Oates on 11-10-2022 Calcium [Mass/Vol] 9.2 mg/dL 8.5-10.1 [facility] Serum or plasma creatinine m easurement (mass/volume)Ordered By: Ender Oates on 11-10-2022 Creatinine [Mass/Vol] 0.99 mg/dL 0.55-1.02 [facility] Comment on above: The validity of the calculated GFR & GFRAA in patients over 70 years has not been determined. Clinical correlation is essential. Serum or plasma urea nitroge n measurement (mass/volume)Ordered By: Ender Oates on 11-10-2022 Urea nitrogen [Mass/Vol] 34 mg/dL 7-18 [facility] Thin prep Papanicolaou smear with manual screeningOrdered By: Ender Oates on 11-10-2022 Thin prep Papanicolaou smear with manual screening 20 U/L 15-37 [facility] Thin prep Papanicolaou smear with manual screening 10 5-15 [facility] Automated blood hematocrit ( percentage)Ordered By: Ender Oates on 10-06-2022 Hematocrit (Bld) [Volume fraction] 49.3 % 37-47 [facility] Basophil percentageOrdered B y: Ender Oates on 10-06-2022 Chloride [Moles/Vol] 108 mmol/L 98-107 [facility] Glucose [Mass/Vol] 156 mg/dL 74-106 [facility] Comment on above: Fasting Glucose resu lt greater than or equal to 126 mg/dL suggests DIABETES MELLITUS per A.D.A. criteria. Potassium [Moles/Vol] 4.3 mmol/L 3.5-5.1 [facility] Protein [Mass/Vol] 7.9 g/dL 6.4-8.2 [facility] Sodium [Moles/Vol] 139 mmol/L 136-145 [facility] WBC (Bld) [#/Vol] 8.1 10*3/uL 4.4-11.0 [facility] Bilirubin [Mass/Vol] 0.70 mg/dL 0.20-1.00 [facility] Comment on above: For patients on eltr ombopag therapy, use of [place] TBIL is not recommended. Blood erythrocytes count (nu mber/volume)Ordered By: Ender Oates on 10-06-2022 RBC (Bld) [#/Vol] 4.89 10*6/uL 4.2-5.4 [facility] Blood hemoglobin measurement (mass/volume)Ordered By: Ender Oates on 10-06-2022 Hemoglobin (Bld) [Mass/Vol] 15.9 g/dL 12.0-15.0 [facility] Blood platelet mean volumeOr dered By: Ender Oates on 10-06-2022 Platelet mean volume (Bld) [Entitic vol] 11.6 fL 6.2-12.0 [facility] CBCon 10-06-2022 Erythrocyte distribution width (RBC) [Ratio] 14.8 % 11.7 - 15.0 % [facility] Erythrocyte distribution width (RBC) [Ratio] 14.7 % 11.7 - 15.0 % [facility] Hematocrit (Bld) [Volume fraction] 43.5 % Abnormal 33 - 42 % [facility] Hematocrit (Bld) [Volume fraction] 45.6 % 35 - 47 % [facility] Hemoglobin (Bld) [Mass/Vol] 13.9 g/dL 12 - 16 g/dL [facility] Hemoglobin (Bld) [Mass/Vol] 14.1 g/dL 12 - 16 g/dL [facility] MCH 31.7 pG 27 - [address] [facility] MCH (RBC) [Entitic mass] 32.6 pg 25. 4 - 34.[address] [facility] MCHC 32 % 32 - 36 % [facility] MCHC 30.9 % Abnormal 32 - 36 % [facility] MCV (RBC) [Entitic vol] 101.9 fL Abnormal 80 - [address] [facility] MCV (RBC) [Entitic vol] 102.5 fL Abnormal 80 - [address] [facility] MPV 11.2 % Abnormal 7.3 - 11.1 % [facility] MPV 10.7 % 7.3 - 11.1 % [facility] Platelets (Bld) [#/Vol] 198 10*3/uL 150 - 400 k/uL [facility] Platelets (Bld) [#/Vol] 222 10*3/uL 150 - 400 k/uL [facility] RBC (Bld) [#/Vol] 4.27 10*6/uL [facility] RBC (Bld) [#/Vol] 4.45 10*6/uL 4.2 - 5.4 M/uL [facility] RDW-SD 55.7 [facility] RDW-SD 56 [facility] WBC (Bld) [#/Vol] 7.7 10*3/uL 4.0 - 11.0 K/uL [facility] WBC (Bld) [#/Vol] 8.2 10*3/uL 4.0 - 11.0 K/uL [facility] CMP (EXTERNAL)on 10-06-2022 Albumin [Mass/Vol] 3.1 g/dL Abnormal 3.2 - 4.6 gm/dL [facility] Alk Phos Total 74 U/L 45 - 117 U/L [facility] Alk Phos Total 61 U/L 45 - 117 U/L [facility] Alk Phos Total 76 U/L 45 - 117 U/L [facility] ALT [Catalytic activity/Vol] 18 U/L 12 - 78 U/L [facility] ALT [Catalytic activity/Vol] 20 U/L 12 - 78 U/L [facility] AST [Catalytic activity/Vol] 19 U/L 8 - 37 U/L [facility] Bili Total 0.70 mg/dL 0.2 - 1 mg/dL [facility] Calcium [Mass/Vol] 8.7 mg/dL 8.5 - 10. 1 mg/dL [facility] Calcium [Mass/Vol] 8.8 mg/dL 8.5 - 10. 1 mg/dL [facility] Chloride [Moles/Vol] 104 mmol/L 98 - 10 7 MEQ/L [facility] Chloride [Moles/Vol] 109 mmol/L Abnormal 98 - 10 7 MEQ/L [facility] CO2 [Moles/Vol] 26 mmol/L 21 - 32 MEQ/L [facility] CO2 [Moles/Vol] 28 mmol/L 21 - 32 MEQ/L [facility] CO2 [Moles/Vol] 23 mmol/L 21 - 32 MEQ/L [facility] Creatinine [Mass/Vol] 0.76 mg/dL 0.6 - 1.3 MG/DL [facility] GFR AFR AMER 98 mL/MIN [facility] GFR AFR AMER 91 mL/MIN [facility] GFR/1.73 sq M.predicted among non-blacks MDRD (S/P/Bld) [Vol rate/Area] 81 mL/min/{1.73_m2} [facility] GFR/1.73 sq M.predicted among non-blacks MDRD (S/P/Bld) [Vol rate/Area] 75 mL/min/{1.73_m2} [facility] Globulin (S) [Mass/Vol] 3.8 g/dL [facility] Glucose [Mass/Vol] 79 mg/dL 74 - 106 MG/DL [facility] MCH 32.5 pG 27 - [address] [facility] MCHC 32.3 % 32 - 36 % [facility] MPV 11.6 % Abnormal 7.3 - 11.1 % [facility] Potassium [Moles/Vol] 4.5 mmol/L 3.5 - 5.1 mmol/L [facility] Potassium [Moles/Vol] 3.8 mmol/L 3.5 - 5.1 mmol/L [facility] Protein [Mass/Vol] 6.9 g/dL 6.4 - 8.2 gm/dL [facility] Protein [Mass/Vol] 6.5 g/dL 6.4 - 8.2 gm/dL [facility] RDW-SD 55.8 [facility] Sodium [Moles/Vol] 138 mmol/L 136 - 145 mmol/L [facility] Urea nitrogen [Mass/Vol] 23 mg/dL Abnormal 7 - 18 MG/D L [facility] Urea nitrogen/Creatinine [Mass ratio] 34.3 mg/mg Abnormal 9 - 20 [facility] Determination of erythrocyte mean corpuscular volume (MCV)Ordered By: Ender Oates on 10-06-2022 MCV (RBC) [Entitic vol] 100.8 fL 81-99 [facility] Laboratory - Chemistry and C hemistry - challengeOrdered By: Ender Oates on 10-06-2022 ALT [Catalytic activity/Vol] 22 U/L 13-56 [facility] Urea nitrogen/Creatinine [Mass ratio] 24.7 mg/mg 10-20 [facility] ALP [Catalytic activity/Vol] 76 U/L 45-117 [facility] CO2 [Moles/Vol] 23.0 mmol/L 21.0-32.0 [facility] Globulin (S) [Mass/Vol] 4.4 g/dL 2.2-4.2 [facility] Laboratory - Chemistry and C hemistry - challengeon 10-06-2022 Anion gap [Moles/Vol] 8 mmol/L [facility] AST [Catalytic activity/Vol] 25 U/L 8 - 37 U/L [facility] Laboratory - Hematology and Cell countsOrdered By: Ender Oates on 10-06-2022 Erythrocyte distribution width (RBC) [Ratio] 14.9 % 11.6-14.6 [facility] Erythrocyte distribution width (RBC) [Entitic vol] 55.8 fL 35.1-43.9 [facility] MCH (RBC) [Entitic mass] 32.5 pg 27.0-32.0 [facility] MCHC Auto (RBC) [Mass/Vol]Or dered By: Ender Oates on 10-06-2022 MCHC (RBC) [Mass/Vol] 32.3 g/dL 32-36 [facility] No Panel Informationon 10-06 Bili Total 0.40 mg/dL 0.2 - 1 mg/dL [facility] No Panel InformationOrdered By: Ender Oates on 10-06-2022 Estimated GFR (MDRD) Amer 91 mL/min >60 [facility] Comment on above: GFR Calc Estimated GFR (MDRD) Non-Af Amer 75 mL/min >60 [facility] Comment on above: Non- GFR Calc Platelets bldOrdered By: Ronaldo Oates on 10-06-2022 Platelets (Bld) [#/Vol] 202 10*3/uL 150-450 [facility] Serum or plasma albumin tammie urement (mass/volume)Ordered By: Ender Oates on 10-06-2022 Albumin [Mass/Vol] 3.5 g/dL 3.2-5.0 [facility] Serum or plasma albumin/glob ulin mass ratioOrdered By: Ender Oates on 10-06-2022 Albumin/Globulin [Mass ratio] 0.8 {ratio} 0.9-2.4 [facility] Serum or plasma calcium tammie urement (mass/volume)Ordered By: Ender Oates on 10-06-2022 Calcium [Mass/Vol] 9.3 mg/dL 8.5-10.1 [facility] Serum or plasma creatinine m easurement (mass/volume)Ordered By: Ender Oates on 10-06-2022 Creatinine [Mass/Vol] 0.81 mg/dL 0.55-1.02 [facility] Comment on above: The validity of the calculated GFR & GFRAA in patients over 70 years has not been determined. Clinical correlation is essential. Serum or plasma urea nitroge n measurement (mass/volume)Ordered By: Ender Oates on 10-06-2022 Urea nitrogen [Mass/Vol] 20 mg/dL 7-18 [facility] Thin prep Papanicolaou smear with manual screeningOrdered By: Ender Oates on 10-06-2022 Thin prep Papanicolaou smear with manual screening 25 U/L 15-37 [facility] Thin prep Papanicolaou smear with manual screening 8 5-15 [facility] Basophil percentageOrdered B y: Ender Oates on 09-08-2022 Bilirubin [Mass/Vol] 0.40 mg/dL 0.20-1.00 [facility] Comment on above: For patients on eltr ombopag therapy, use of [place] TBIL is not recommended. Chloride [Moles/Vol] 109 mmol/L 98-107 [facility] Glucose [Mass/Vol] 116 mg/dL 74-106 [facility] Comment on above: Fasting Glucose resu lt from 100 to 125 mg/dL suggests IMPAIRED HOMEOSTASIS per A.D.A. criteria. Potassium [Moles/Vol] 3.8 mmol/L 3.5-5.1 [facility] Protein [Mass/Vol] 6.5 g/dL 6.4-8.2 [facility] Sodium [Moles/Vol] 139 mmol/L 136-145 [facility] WBC (Bld) [#/Vol] 8.2 10*3/uL 4.4-11.0 [facility] Blood erythrocytes count (nu mber/volume)Ordered By: Ender Oates on 09-08-2022 RBC (Bld) [#/Vol] 4.45 10*6/uL 4.2-5.4 [facility] Blood hemoglobin measurement (mass/volume)Ordered By: Ender Oates on 09-08-2022 Hemoglobin (Bld) [Mass/Vol] 14.1 g/dL 12.0-15.0 [facility] Blood platelet mean volumeOr dered By: Ender Oates on 09-08-2022 Platelet mean volume (Bld) [Entitic vol] 10.7 fL 6.2-12.0 [facility] Determination of erythrocyte mean corpuscular volume (MCV)Ordered By: Ender Oates on 09-08-2022 MCV (RBC) [Entitic vol] 102.5 fL 81-99 [facility] Hematocrit Auto (Bld) [Volum e fraction]Ordered By: Ender Oates on 09-08-2022 Hematocrit (Bld) [Volume fraction] 45.6 % 37-47 [facility] - Chemistry and C hemistry - challengeOrdered By: Ender Oates on 09-08-2022 ALP [Catalytic activity/Vol] 61 U/L 45-117 [facility] ALT [Catalytic activity/Vol] 20 U/L 13-56 [facility] CO2 [Moles/Vol] 28.0 mmol/L 21.0-32.0 [facility] Globulin (S) [Mass/Vol] 3.6 g/dL 2.2-4.2 [facility] Urea nitrogen/Creatinine [Mass ratio] 30.3 mg/mg 10-20 [facility] - Hematology and Cell countsOrdered By: Ender Oates on 09-08-2022 Erythrocyte distribution width (RBC) [Entitic vol] 56.0 fL 35.1-43.9 [facility] Erythrocyte distribution width (RBC) [Ratio] 14.7 % 11.6-14.6 [facility] MCH (RBC) [Entitic mass] 31.7 pg 27.0-32.0 [facility] MCHC Auto (RBC) [Mass/Vol]Or dered By: Ender Oates on 09-08-2022 MCHC (RBC) [Mass/Vol] 30.9 g/dL 32-36 [facility] No Panel InformationOrdered By: Ender Oates on 09-08-2022 Estimated GFR (MDRD) Amer 98 mL/min >60 [facility] Comment on above: GFR Calc Estimated GFR (MDRD) Non-Af Amer 81 mL/min >60 [facility] Comment on above: Non- GFR Calc Platelets bldOrdered By: Ronaldo Oates on 09-08-2022 Platelets (Bld) [#/Vol] 222 10*3/uL 150-450 [facility] Serum or plasma albumin tammie urement (mass/volume)Ordered By: Ender Oates on 09-08-2022 Albumin [Mass/Vol] 2.9 g/dL 3.2-5.0 [facility] Serum or plasma albumin/glob ulin mass ratioOrdered By: Ender Oates on 09-08-2022 Albumin/Globulin [Mass ratio] 0.8 {ratio} 0.9-2.4 [facility] Serum or plasma calcium tammie urement (mass/volume)Ordered By: Ender Oates on 09-08-2022 Calcium [Mass/Vol] 8.8 mg/dL 8.5-10.1 [facility] Serum or plasma creatinine m easurement (mass/volume)Ordered By: Ender Oates on 09-08-2022 Creatinine [Mass/Vol] 0.76 mg/dL 0.55-1.02 [facility] Comment on above: The validity of the calculated GFR & GFRAA in patients over 70 years has not been determined. Clinical correlation is essential. Serum or plasma urea nitroge n measurement (mass/volume)Ordered By: Ender Oates on 09-08-2022 Urea nitrogen [Mass/Vol] 23 mg/dL 7-18 [facility] Thin prep Papanicolaou smear with manual screeningOrdered By: Ender Oates on 09-08-2022 Thin prep Papanicolaou smear with manual screening 19 U/L 15-37 [facility] Thin prep Papanicolaou smear with manual screening 2 5-15 [facility] Basophil percentageOrdered B y: Ender Oates on 08-28-2022 WBC (Bld) [#/Vol] 7.7 10*3/uL 4.4-11.0 [facility] Blood erythrocytes count (nu mber/volume)Ordered By: Ender Oates on 08-28-2022 RBC (Bld) [#/Vol] 4.27 10*6/uL 4.2-5.4 [facility] Blood hemoglobin measurement (mass/volume)Ordered By: Ender Oates on 08-28-2022 Hemoglobin (Bld) [Mass/Vol] 13.9 g/dL 12.0-15.0 [facility] Blood platelet mean volumeOr dered By: Ender Oates on 08-28-2022 Platelet mean volume (Bld) [Entitic vol] 11.2 fL 6.2-12.0 [facility] Determination of erythrocyte mean corpuscular volume (MCV)Ordered By: Ender Oates on 08-28-2022 MCV (RBC) [Entitic vol] 101.9 fL 81-99 [facility] Hematocrit Auto (Bld) [Volum e fraction]Ordered By: Ender Oates on 08-28-2022 Hematocrit (Bld) [Volume fraction] 43.5 % 37-47 [facility] - Hematology and Cell countsOrdered By: Ender Oates on 08-28-2022 Erythrocyte distribution width (RBC) [Entitic vol] 55.7 fL 35.1-43.9 [facility] Erythrocyte distribution width (RBC) [Ratio] 14.8 % 11.6-14.6 [facility] MCH (RBC) [Entitic mass] 32.6 pg 27.0-32.0 [facility] MCHC Auto (RBC) [Mass/Vol]Or dered By: Ender Oates on 08-28-2022 MCHC (RBC) [Mass/Vol] 32.0 g/dL 32-36 [facility] Platelets bldOrdered By: Ronaldo Oates on 08-28-2022 Platelets (Bld) [#/Vol] 198 10*3/uL 150-450 [facility] Basophil percentageOrdered B y: Ender Oates on 08-11-2022 Bilirubin [Mass/Vol] 0.40 mg/dL 0.20-1.00 [facility] Comment on above: For patients on eltr ombopag therapy, use of Dimension [place] TBIL is not recommended. Chloride [Moles/Vol] 104 mmol/L 98-107 [facility] Glucose [Mass/Vol] 79 mg/dL 74-106 [facility] Potassium [Moles/Vol] 4.5 mmol/L 3.5-5.1 [facility] Protein [Mass/Vol] 6.9 g/dL 6.4-8.2 [facility] Sodium [Moles/Vol] 138 mmol/L 136-145 [facility] WBC (Bld) [#/Vol] 7.5 10*3/uL 4.4-11.0 [facility] Blood erythrocytes count (nu mber/volume)Ordered By: Ender Oates on 08-11-2022 RBC (Bld) [#/Vol] 4.57 10*6/uL 4.2-5.4 [facility] Blood hemoglobin measurement (mass/volume)Ordered By: Ender Oates on 08-11-2022 Hemoglobin (Bld) [Mass/Vol] 14.6 g/dL 12.0-15.0 [facility] Blood platelet mean volumeOr dered By: Ender Oates on 08-11-2022 Platelet mean volume (Bld) [Entitic vol] 11.5 fL 6.2-12.0 [facility] Determination of erythrocyte mean corpuscular volume (MCV)Ordered By: Ender Oates on 08-11-2022 MCV (RBC) [Entitic vol] 102.0 fL 81-99 [facility] Hematocrit Auto (Bld) [Volum e fraction]Ordered By: Ender Oates on 08-11-2022 Hematocrit (Bld) [Volume fraction] 46.6 % 37-47 [facility] - Chemistry and C hemistry - challengeOrdered By: Ender Oates on 08-11-2022 ALP [Catalytic activity/Vol] 74 U/L 45-117 [facility] ALT [Catalytic activity/Vol] 18 U/L 13-56 [facility] CO2 [Moles/Vol] 26.0 mmol/L 21.0-32.0 [facility] Globulin (S) [Mass/Vol] 3.8 g/dL 2.2-4.2 [facility] Urea nitrogen/Creatinine [Mass ratio] 34.3 mg/mg 10-20 [facility] - Hematology and Cell countsOrdered By: Ender Oates on 08-11-2022 Erythrocyte distribution width (RBC) [Entitic vol] 55.5 fL 35.1-43.9 [facility] Erythrocyte distribution width (RBC) [Ratio] 14.6 % 11.6-14.6 [facility] MCH (RBC) [Entitic mass] 31.9 pg 27.0-32.0 [facility] MCHC Auto (RBC) [Mass/Vol]Or dered By: Ender Oates on 08-11-2022 MCHC (RBC) [Mass/Vol] 31.3 g/dL 32-36 [facility] No Panel InformationOrdered By: Ender Oates on 08-11-2022 Estimated GFR (MDRD) Amer 77 mL/min >60 [facility] Comment on above: GFR Calc Estimated GFR (MDRD) Non-Af Amer 64 mL/min >60 [facility] Comment on above: Non- GFR Calc Platelets bldOrdered By: Ronaldo Oates on 08-11-2022 Platelets (Bld) [#/Vol] 193 10*3/uL 150-450 [facility] Serum or plasma albumin tammie urement (mass/volume)Ordered By: Ender Oates on 08-11-2022 Albumin [Mass/Vol] 3.1 g/dL 3.2-5.0 [facility] Serum or plasma albumin/glob ulin mass ratioOrdered By: Ender Oates on 08-11-2022 Albumin/Globulin [Mass ratio] 0.8 {ratio} 0.9-2.4 [facility] Serum or plasma calcium tammie urement (mass/volume)Ordered By: Ender Oates on 08-11-2022 Calcium [Mass/Vol] 8.7 mg/dL 8.5-10.1 [facility] Serum or plasma creatinine m easurement (mass/volume)Ordered By: Ender Oates on 08-11-2022 Creatinine [Mass/Vol] 0.93 mg/dL 0.55-1.02 [facility] Comment on above: The validity of the calculated GFR & GFRAA in patients over 70 years has not been determined. Clinical correlation is essential. Serum or plasma urea nitroge n measurement (mass/volume)Ordered By: Ender Oates on 08-11-2022 Urea nitrogen [Mass/Vol] 32 mg/dL 7-18 [facility] Thin prep Papanicolaou smear with manual screeningOrdered By: Ender Oates on 08-11-2022 Thin prep Papanicolaou smear with manual screening 25 U/L 15-37 [facility] Thin prep Papanicolaou smear with manual screening 8 5-15 [facility] Basophil percentageOrdered B y: Ender Oates on 08-08-2022 Cholesterol [Mass/Vol] 142 mg/dL <200 [facility] Comment on above: <200 mg/dL Desirable 200-240 mg/dL Borderline >240 mg/dL High Risk Triglyceride [Mass/Vol] 145 mg/dL <199 [facility] Comment on above: The drugs N-Acetylcy steine and Metamizole may falsely depress this assay.Serum Triglycerides Reference Interval Normal <150 mg/dL Borderline high 150 - 199 mg/dL High 200 - 499 mg/dL Very High > or = 500 mg/dL Serum or plasma cholesterol in HDL measurement (mass/volume)Ordered By: Ender Oates on 08-08-2022 Cholesterol in HDL [Mass/Vol] 60 mg/dL >40 [facility] Comment on above: The drugs N-Acetylcy steine and Metamizole may falsely depress this assay. Reference Range HDL <40 mg/dL Low HDL Cholesterol HDL >or= 60 mg/dL High HDL Cholesterol Serum or plasma cholesterol in VLDL measurement (mass/volume)Ordered By: Ender Oates on 08-08-2022 Cholesterol in VLDL [Mass/Vol] 29 mg/dL 5-40 [facility] Serum or plasma low density lipoprotein (LDL) cholesterol measurement (mass/volume)Ordered By: Ender Oates on 08-08-2022 Cholesterol in LDL [Mass/Vol] 53 mg/dL 0-130 [facility] Basophil percentageOrdered B y: Ender Oates on 07-14-2022 Bilirubin [Mass/Vol] 0.40 mg/dL 0.20-1.00 [facility] Comment on above: For patients on eltr ombopag therapy, use of Dimension [place] TBIL is not recommended. Chloride [Moles/Vol] 109 mmol/L 98-107 [facility] Glucose [Mass/Vol] 90 mg/dL 74-106 [facility] Potassium [Moles/Vol] 4.4 mmol/L 3.5-5.1 [facility] Protein [Mass/Vol] 6.7 g/dL 6.4-8.2 [facility] Sodium [Moles/Vol] 143 mmol/L 136-145 [facility] WBC (Bld) [#/Vol] 7.2 10*3/uL 4.4-11.0 [facility] Blood erythrocytes count (nu mber/volume)Ordered By: Ender Oates on 07-14-2022 RBC (Bld) [#/Vol] 4.48 10*6/uL 4.2-5.4 [facility] Blood hemoglobin measurement (mass/volume)Ordered By: Ender Oates on 07-14-2022 Hemoglobin (Bld) [Mass/Vol] 14.1 g/dL 12.0-15.0 [facility] Blood platelet mean volumeOr dered By: Ender Oates on 07-14-2022 Platelet mean volume (Bld) [Entitic vol] 11.5 fL 6.2-12.0 [facility] Determination of erythrocyte mean corpuscular volume (MCV)Ordered By: Ender Oates on 07-14-2022 MCV (RBC) [Entitic vol] 102.2 fL 81-99 [facility] Hematocrit Auto (Bld) [Volum e fraction]Ordered By: Ender Oates on 07-14-2022 Hematocrit (Bld) [Volume fraction] 45.8 % 37-47 [facility] - Chemistry and C hemistry - challengeOrdered By: Ender Oates on 07-14-2022 ALP [Catalytic activity/Vol] 84 U/L 45-117 [facility] ALT [Catalytic activity/Vol] 16 U/L 13-56 [facility] CO2 [Moles/Vol] 32.0 mmol/L 21.0-32.0 [facility] Globulin (S) [Mass/Vol] 3.9 g/dL 2.2-4.2 [facility] Urea nitrogen/Creatinine [Mass ratio] 38.6 mg/mg 10-20 [facility] - Hematology and Cell countsOrdered By: Ender Oates on 07-14-2022 Erythrocyte distribution width (RBC) [Entitic vol] 54.3 fL 35.1-43.9 [facility] Erythrocyte distribution width (RBC) [Ratio] 14.5 % 11.6-14.6 [facility] MCH (RBC) [Entitic mass] 31.5 pg 27.0-32.0 [facility] MCHC Auto (RBC) [Mass/Vol]Or dered By: Ender Oaets on 07-14-2022 MCHC (RBC) [Mass/Vol] 30.8 g/dL 32-36 [facility] No Panel InformationOrdered By: Ender Oates on 07-14-2022 Estimated GFR (MDRD) Amer 99 mL/min >60 [facility] Comment on above: GFR Calc Estimated GFR (MDRD) Non-Af Amer 82 mL/min >60 [facility] Comment on above: Non- GFR Calc Platelets bldOrdered By: Ronaldo Oates on 07-14-2022 Platelets (Bld) [#/Vol] 186 10*3/uL 150-450 [facility] Serum or plasma albumin tammie urement (mass/volume)Ordered By: Ender Oates on 07-14-2022 Albumin [Mass/Vol] 2.8 g/dL 3.2-5.0 [facility] Serum or plasma albumin/glob ulin mass ratioOrdered By: Ender Oates on 07-14-2022 Albumin/Globulin [Mass ratio] 0.7 {ratio} 0.9-2.4 [facility] Serum or plasma calcium tammie urement (mass/volume)Ordered By: Ender Oates on 07-14-2022 Calcium [Mass/Vol] 8.8 mg/dL 8.5-10.1 [facility] Serum or plasma creatinine m easurement (mass/volume)Ordered By: Ender Oates on 07-14-2022 Creatinine [Mass/Vol] 0.75 mg/dL 0.55-1.02 [facility] Comment on above: The validity of the calculated GFR & GFRAA in patients over 70 years has not been determined. Clinical correlation is essential. Serum or plasma urea nitroge n measurement (mass/volume)Ordered By: Ender Oates on 07-14-2022 Urea nitrogen [Mass/Vol] 29 mg/dL 7-18 [facility] Thin prep Papanicolaou smear with manual screeningOrdered By: Ender Oates on 07-14-2022 Thin prep Papanicolaou smear with manual screening 17 U/L 15-37 [facility] Thin prep Papanicolaou smear with manual screening 2 5-[address] [facility] [address] KNEE WO IVCON LTon 2022 CT KNEE WO IVCON LT * * *Final Report* * * DATE OF EXAM: Jun 12 2022 3:43PM [facility]83 - CT KNEE WO IVCON LT / PROCEDURE REASON: T84.84XA-Pain due to internal orthopedic prosthetic devices, implants and grafts * * * * Physician Interpretation * * * * PROCEDURE: CT KNEE WO IVCON LT INDICATION: Pain due to internal orthopedic prosthetic devices, implants and grafts, initial encounter (HCC) TECHNIQUE: Multiplanar reconstructed images of the left knee, utilizing MAR CT Radiation dose: Integrated Dose-length product (DLP) for this visit = 228 mGy*cm. CT Dose Reduction Employed: Automated exposure control(AEC) and iterative recon Comparison: Left knee images 10/07/2018 FINDINGS: No current knee images are available for correlation. There is a cemented total knee arthroplasty with patellar resurfacing. Hardware is intact. No gross evidence for loosening. No fracture or osseous lesion. No sizable joint effusion. Surrounding muscle atrophy without acute soft tissue abnormality. IMPRESSION: Intact TKA. No acute abnormality. Glove Printer: B[facility] DEACON[facility] [email or web address] Transcribe Date/Time: Jun 16 2022 8:28A Dictated by : DEJA LIU MD This examination was interpreted and the report reviewed and electronically signed by: DEJA LIU MD on Jun 16 2022 8:31AM EST [id number] N Normal [facility] Basophil percentageOrdered B y: Ender Oates on 06-09-2022 Bilirubin [Mass/Vol] 0.40 mg/dL 0.20-1.00 [facility] Comment on above: For patients on eltr ombopag therapy, use of Dimension [place] TBIL is not recommended. Chloride [Moles/Vol] 106 mmol/L 98-107 [facility] Glucose [Mass/Vol] 90 mg/dL 74-106 [facility] Potassium [Moles/Vol] 4.1 mmol/L 3.5-5.1 [facility] Protein [Mass/Vol] 6.5 g/dL 6.4-8.2 [facility] Sodium [Moles/Vol] 143 mmol/L 136-145 [facility] WBC (Bld) [#/Vol] 6.4 10*3/uL 4.4-11.0 [facility] Blood erythrocytes count (nu mber/volume)Ordered By: Ender Oates on 06-09-2022 RBC (Bld) [#/Vol] 4.36 10*6/uL 4.2-5.4 [facility] Blood hemoglobin measurement (mass/volume)Ordered By: Ender Oates on 06-09-2022 Hemoglobin (Bld) [Mass/Vol] 14.4 g/dL 12.0-15.0 [facility] Blood platelet mean volumeOr dered By: Ender Oates on 06-09-2022 Platelet mean volume (Bld) [Entitic vol] 11.1 fL 6.2-12.0 [facility] Determination of erythrocyte mean corpuscular volume (MCV)Ordered By: Ender Oates on 06-09-2022 MCV (RBC) [Entitic vol] 102.3 fL 81-99 [facility] Hematocrit Auto (Bld) [Volum e fraction]Ordered By: Ender Oates on 06-09-2022 Hematocrit (Bld) [Volume fraction] 44.6 % 37-47 [facility] - Chemistry and C hemistry - challengeOrdered By: Ender Oates on 06-09-2022 ALP [Catalytic activity/Vol] 67 U/L 45-117 [facility] ALT [Catalytic activity/Vol] 14 U/L 13-56 [facility] CO2 [Moles/Vol] 29.0 mmol/L 21.0-32.0 [facility] Globulin (S) [Mass/Vol] 3.7 g/dL 2.2-4.2 [facility] Urea nitrogen/Creatinine [Mass ratio] 31.0 mg/mg 10-20 [facility] - Hematology and Cell countsOrdered By: Ender Oates on 06-09-2022 Erythrocyte distribution width (RBC) [Entitic vol] 56.1 fL 35.1-43.9 [facility] Erythrocyte distribution width (RBC) [Ratio] 14.9 % 11.6-14.6 [facility] MCH (RBC) [Entitic mass] 33.0 pg 27.0-32.0 [facility] MCHC Auto (RBC) [Mass/Vol]Or dered By: Ender Oates on 06-09-2022 MCHC (RBC) [Mass/Vol] 32.3 g/dL 32-36 [facility] No Panel InformationOrdered By: Ender Oates on 06-09-2022 Estimated GFR (MDRD) Amer 106 mL/min >60 [facility] Comment on above: GFR Calc Estimated GFR (MDRD) Non-Af Amer 88 mL/min >60 [facility] Comment on above: Non- GFR Calc Platelets bldOrdered By: Ronaldo Oates on 06-09-2022 Platelets (Bld) [#/Vol] 183 10*3/uL 150-450 [facility] Serum or plasma albumin tammie urement (mass/volume)Ordered By: Ender Oates on 06-09-2022 Albumin [Mass/Vol] 2.8 g/dL 3.2-5.0 [facility] Serum or plasma albumin/glob ulin mass ratioOrdered By: Ender Oates on 06-09-2022 Albumin/Globulin [Mass ratio] 0.8 {ratio} 0.9-2.4 [facility] Serum or plasma calcium tammie urement (mass/volume)Ordered By: Ender Oates on 06-09-2022 Calcium [Mass/Vol] 8.6 mg/dL 8.5-10.1 [facility] Serum or plasma creatinine m easurement (mass/volume)Ordered By: Ender Oates on 06-09-2022 Creatinine [Mass/Vol] 0.71 mg/dL 0.55-1.02 [facility] Comment on above: The validity of the calculated GFR & GFRAA in patients over 70 years has not been determined. Clinical correlation is essential. Serum or plasma urea nitroge n measurement (mass/volume)Ordered By: Ender Oates on 06-09-2022 Urea nitrogen [Mass/Vol] 22 mg/dL 7-18 [facility] Thin prep Papanicolaou smear with manual screeningOrdered By: Ender Oates on 06-09-2022 Thin prep Papanicolaou smear with manual screening 13 U/L 15-37 [facility] Thin prep Papanicolaou smear with manual screening 8 5-15 [facility] Basophil percentageOrdered B y: Ender Oates on 05-22-2022 WBC (Bld) [#/Vol] 7.6 10*3/uL 4.4-11.0 [facility] Blood erythrocytes count (nu mber/volume)Ordered By: Ender Oates on 05-22-2022 RBC (Bld) [#/Vol] 4.63 10*6/uL 4.2-5.4 [facility] Blood hemoglobin measurement (mass/volume)Ordered By: Ender Oates on 05-22-2022 Hemoglobin (Bld) [Mass/Vol] 14.7 g/dL 12.0-15.0 [facility] Blood platelet mean volumeOr dered By: Ender Oates on 05-22-2022 Platelet mean volume (Bld) [Entitic vol] 11.7 fL 6.2-12.0 [facility] Determination of erythrocyte mean corpuscular volume (MCV)Ordered By: Ender Oates on 05-22-2022 MCV (RBC) [Entitic vol] 102.8 fL 81-99 [facility] Erythrocyte sedimentation ra teOrdered By: Ender Oates on 05-22-2022 ESR (Bld) [Velocity] 7 mm/h 0-30 [facility] Hematocrit Auto (Bld) [Volum e fraction]Ordered By: Ender Oates on 05-22-2022 Hematocrit (Bld) [Volume fraction] 47.6 % 37-47 [facility] - Hematology and Cell countsOrdered By: Ender Oates on 05-22-2022 Erythrocyte distribution width (RBC) [Entitic vol] 57.1 fL 35.1-43.9 [facility] Erythrocyte distribution width (RBC) [Ratio] 14.8 % 11.6-14.6 [facility] MCH (RBC) [Entitic mass] 31.7 pg 27.0-32.0 [facility] MCHC Auto (RBC) [Mass/Vol]Or dered By: Ender Oates on 05-22-2022 MCHC (RBC) [Mass/Vol] 30.9 g/dL 32-36 [facility] Platelets bldOrdered By: Ronaldo Oates on 05-22-2022 Platelets (Bld) [#/Vol] 179 10*3/uL 150-450 [facility] Serum or plasma C reactive p rotein measurement (mass/volume)Ordered By: Ender Oates on 05-22-2022 CRP [Mass/Vol] 4.40 mg/L 0.0-3.0 [facility] Comment on above: C-Reactive Protein ( CRP) provides useful information for thediagnosis, therapy and monitoring of inflammatory processesand associated diseases. For the evaluation of Relative Riskfor Cardiovascular Disease, a High Sensitivity CRP (HSCRP)should be ordered. XR KNEE POST OP 3V AP/LAT/ME RCHANT LEFTon 05-21-2022 [facility] XR Knee AP and Lateral and M erchantson 05-21-2022 IMPRESSION: Left total knee arthroplasty without complication on this single view. Glove Printer: [employer] Transcribe Date/Time: May 21 2022 1:32P Dictated by : KATHY KING MD This examination was interpreted and the report reviewed and electronically signed by: ARABELLA ALVARADO MD on May 21 2022 2:24PM [facility] DIVISION OF RADIOLOGY * * *Final Report* * * DATE OF EXAM: May 21 2022 1:29PM EOX 5208 - XR KNEE 3V AP/LAT/MERCHANT LT / PROCEDURE REASON: Status post total left knee replacement * * * * Physician Interpretation * * * * EXAMINATION / TECHNIQUE: XR KNEE 3V AP/LAT/MERCHANT LT PATIENT/TECHNOLOGIST PROVIDED HISTORY: left knee follow up CLINICAL INFORMATION ( PROVIDED BY ORDERING CLINICIAN) : Status post total left knee replacement COMPARISON: None RESULT: Only single AP view was obtained. Patient was not able to transfer to obtain additional views. Status post left total knee arthroplasty. Appropriate alignment of hardware without periprosthetic fracture or loosening. No acute fracture or dislocation. Minimal surrounding soft tissue swelling, likely postoperative. DIVISION OF RADIOLOGY Provider, [facility] - 05/21/2022 * * *Final Report* * * DATE OF EXAM: May 21 2022 1:29PM [facility] 5208 - XR KNEE 3V AP/LAT/MERCHANT LT / PROCEDURE REASON: Status post total left knee replacement * * * * Physician Interpretation * * * * EXAMINATION / TECHNIQUE: XR KNEE 3V AP/LAT/MERCHANT LT PATIENT/TECHNOLOGIST PROVIDED HISTORY: left knee follow up CLINICAL INFORMATION ( PROVIDED BY ORDERING CLINICIAN) : Status post total left knee replacement COMPARISON: None RESULT: Only single AP view was obtained. Patient was not able to transfer to obtain additional views. Status post left total knee arthroplasty. Appropriate alignment of hardware without periprosthetic fracture or loosening. No acute fracture or dislocation. Minimal surrounding soft tissue swelling, likely postoperative. IMPRESSION IMPRESSION: Left total knee arthroplasty without complication on this single view. Glove Printer: [employer] Transcribe Date/Time: May 21 2022 1:32P Dictated by : KATHY KING MD This examination was interpreted and the report reviewed and electronically signed by: ARABELLA ALVARADO MD on May 21 2022 2:24PM EST [facility] Radiology Study observation (narrative) [facility] XR Knee AP and Lateral and M erchantsOrdered By: [facility] Provider on 05-21-2022 [facility] No Panel InformationOrdered By: Ender Oates on 05-15-2022 Vitamin D 25-Hydroxy 36.0 ng/mL [facility] Comment on above: Vitamin D 25(OH) Sta tus Range Deficiency <20 ng/mL (50nmol/L) Insufficiency 20 - 30 ng/mL (50 - 75 nmol/L) Sufficiency 30 - 100 ng/mL (75 - 250 nmol/L) Toxicity >100 ng/mL (>250 nmol/L) Basophil percentageOrdered B y: Ender Oates on 05-10-2022 Bilirubin [Mass/Vol] 0.40 mg/dL 0.20-1.00 [facility] Comment on above: For patients on eltr ombopag therapy, use of Dimension [place] TBIL is not recommended. Chloride [Moles/Vol] 107 mmol/L 98-107 [facility] Glucose [Mass/Vol] 96 mg/dL 74-106 [facility] Potassium [Moles/Vol] 3.9 mmol/L 3.5-5.1 [facility] Protein [Mass/Vol] 6.2 g/dL 6.4-8.2 [facility] Sodium [Moles/Vol] 142 mmol/L 136-145 [facility] WBC (Bld) [#/Vol] 4.3 10*3/uL 4.4-11.0 [facility] Blood erythrocytes count (nu mber/volume)Ordered By: Ender Oates on 05-10-2022 RBC (Bld) [#/Vol] 4.39 10*6/uL 4.2-5.4 [facility] Blood hemoglobin measurement (mass/volume)Ordered By: Ender Oates on 05-10-2022 Hemoglobin (Bld) [Mass/Vol] 14.3 g/dL 12.0-15.0 [facility] Blood platelet mean volumeOr dered By: Ender Oates on 05-10-2022 Platelet mean volume (Bld) [Entitic vol] 11.5 fL 6.2-12.0 [facility] Determination of erythrocyte mean corpuscular volume (MCV)Ordered By: Ender Oates on 05-10-2022 MCV (RBC) [Entitic vol] 99.8 fL 81-99 [facility] Hematocrit Auto (Bld) [Volum e fraction]Ordered By: Ender Oates on 05-10-2022 Hematocrit (Bld) [Volume fraction] 43.8 % 37-47 [facility] - Chemistry and C hemistry - challengeOrdered By: Ender Oates on 05-10-2022 ALP [Catalytic activity/Vol] 73 U/L 45-117 [facility] ALT [Catalytic activity/Vol] 16 U/L 13-56 [facility] CO2 [Moles/Vol] 30.0 mmol/L 21.0-32.0 [facility] Globulin (S) [Mass/Vol] 3.2 g/dL 2.2-4.2 [facility] Urea nitrogen/Creatinine [Mass ratio] 29.5 mg/mg 10-20 [facility] - Hematology and Cell countsOrdered By: Ender Oates on 05-10-2022 Erythrocyte distribution width (RBC) [Entitic vol] 53.1 fL 35.1-43.9 [facility] Erythrocyte distribution width (RBC) [Ratio] 14.5 % 11.6-14.6 [facility] MCH (RBC) [Entitic mass] 32.6 pg 27.0-32.0 [facility] MCHC Auto (RBC) [Mass/Vol]Or dered By: Ender Oates on 05-10-2022 MCHC (RBC) [Mass/Vol] 32.6 g/dL 32-36 [facility] No Panel InformationOrdered By: Ender Oates on 05-10-2022 Estimated GFR (MDRD) Amer 106 mL/min >60 [facility] Comment on above: GFR Calc Estimated GFR (MDRD) Non-Af Amer 87 mL/min >60 [facility] Comment on above: Non- GFR Calc Valproic Acid (Depakene) Level < 3 ug/mL 50-100 [facility] Platelets bldOrdered By: Ronaldo Oates on 05-10-2022 Platelets (Bld) [#/Vol] 147 10*3/uL 150-450 [facility] Serum or plasma albumin tammie urement (mass/volume)Ordered By: Ender Oates on 05-10-2022 Albumin [Mass/Vol] 3.0 g/dL 3.2-5.0 [facility] Serum or plasma albumin/glob ulin mass ratioOrdered By: Ender Oates on 05-10-2022 Albumin/Globulin [Mass ratio] 0.9 {ratio} 0.9-2.4 [facility] Serum or plasma calcium tammie urement (mass/volume)Ordered By: Edner Oates on 05-10-2022 Calcium [Mass/Vol] 8.4 mg/dL 8.5-10.1 [facility] Serum or plasma creatinine m easurement (mass/volume)Ordered By: Ender Oates on 05-10-2022 Creatinine [Mass/Vol] 0.71 mg/dL 0.55-1.02 [facility] Comment on above: The validity of the calculated GFR & GFRAA in patients over 70 years has not been determined. Clinical correlation is essential. Serum or plasma urea nitroge n measurement (mass/volume)Ordered By: Ender Oates on 05-10-2022 Urea nitrogen [Mass/Vol] 21 mg/dL 7-18 [facility] Thin prep Papanicolaou smear with manual screeningOrdered By: Ender Oates on 05-10-2022 Thin prep Papanicolaou smear with manual screening 18 U/L 15- [facility] Thin prep Papanicolaou smear with manual screening 5 5-15 [facility] No Panel InformationOrdered By: Chet Angel on 05-01-2022 Thyroid Stimulating Hormone (TSH) 3.11 uIU/mL 0.358-3.74 [facility] Basophil percentageOrdered B y: Ender Oates on 04-14-2022 Bilirubin [Mass/Vol] 0.30 mg/dL 0.20-1.00 [facility] Comment on above: For patients on eltr ombopag therapy, use of Dim[place] TBIL is not recommended. Chloride [Moles/Vol] 106 mmol/L 98-107 [facility] Glucose [Mass/Vol] 85 mg/dL 74-106 [facility] Potassium [Moles/Vol] 4.2 mmol/L 3.5-5.1 [facility] Protein [Mass/Vol] 6.6 g/dL 6.4-8.2 [facility] Sodium [Moles/Vol] 141 mmol/L 136-145 [facility] WBC (Bld) [#/Vol] 7.8 10*3/uL 4.4-11.0 [facility] Blood erythrocytes count (nu mber/volume)Ordered By: Ender Oates on 04-14-2022 RBC (Bld) [#/Vol] 4.00 10*6/uL 4.2-5.4 [facility] Blood hemoglobin measurement (mass/volume)Ordered By: Ender Oates on 04-14-2022 Hemoglobin (Bld) [Mass/Vol] 12.8 g/dL 12.0-15.0 [facility] Blood platelet mean volumeOr dered By: Ender Oates on 04-14-2022 Platelet mean volume (Bld) [Entitic vol] 10.9 fL 6.2-12.0 [facility] Determination of erythrocyte mean corpuscular volume (MCV)Ordered By: Ender Oates on 04-14-2022 MCV (RBC) [Entitic vol] 99.5 fL 81-99 [facility] Hematocrit Auto (Bld) [Volum e fraction]Ordered By: Ender Oates on 04-14-2022 Hematocrit (Bld) [Volume fraction] 39.8 % 37-47 [facility] - Chemistry and C hemistry - challengeOrdered By: Ender Oates on 04-14-2022 ALP [Catalytic activity/Vol] 75 U/L 45-117 [facility] ALT [Catalytic activity/Vol] 18 U/L 13-56 [facility] CO2 [Moles/Vol] 28.0 mmol/L 21.0-32.0 [facility] Globulin (S) [Mass/Vol] 3.9 g/dL 2.2-4.2 [facility] Urea nitrogen/Creatinine [Mass ratio] 36.9 mg/mg 10-20 [facility] - Hematology and Cell countsOrdered By: Ender Oates on 04-14-2022 Erythrocyte distribution width (RBC) [Entitic vol] 52.8 fL 35.1-43.9 [facility] Erythrocyte distribution width (RBC) [Ratio] 14.4 % 11.6-14.6 [facility] MCH (RBC) [Entitic mass] 32.0 pg 27.0-32.0 [facility] MCHC Auto (RBC) [Mass/Vol]Or dered By: Ender Oates on 04-14-2022 MCHC (RBC) [Mass/Vol] 32.2 g/dL 32-36 [facility] No Panel InformationOrdered By: Ender Oates on 04-14-2022 Estimated GFR (MDRD) Amer 117 mL/min >60 [facility] Comment on above: GFR Calc Estimated GFR (MDRD) Non-Af Amer 97 mL/min >60 [facility] Comment on above: Non- GFR Calc Platelets bldOrdered By: Ronaldo Oates on 04-14-2022 Platelets (Bld) [#/Vol] 162 10*3/uL 150-450 [facility] Serum or plasma albumin tammie urement (mass/volume)Ordered By: Ender Oates on 04-14-2022 Albumin [Mass/Vol] 2.7 g/dL 3.2-5.0 [facility] Serum or plasma albumin/glob ulin mass ratioOrdered By: Ender Oates on 04-14-2022 Albumin/Globulin [Mass ratio] 0.7 {ratio} 0.9-2.4 [facility] Serum or plasma calcium tammie urement (mass/volume)Ordered By: Ender Oates on 04-14-2022 Calcium [Mass/Vol] 8.2 mg/dL 8.5-10.1 [facility] Serum or plasma creatinine m easurement (mass/volume)Ordered By: Ender Oates on 04-14-2022 Creatinine [Mass/Vol] 0.65 mg/dL 0.55-1.02 [facility] Comment on above: The validity of the calculated GFR & GFRAA in patients over 70 years has not been determined. Clinical correlation is essential. Serum or plasma urea nitroge n measurement (mass/volume)Ordered By: Ender Oates on 04-14-2022 Urea nitrogen [Mass/Vol] 24 mg/dL 7-18 [facility] Thin prep Papanicolaou smear with manual screeningOrdered By: Ender Oates on 04-14-2022 Thin prep Papanicolaou smear with manual screening 18 U/L 15-37 [facility] Thin prep Papanicolaou smear with manual screening 7 5-15 [facility] Basophil percentageOrdered B y: Ender Oates on 03-10-2022 Bilirubin [Mass/Vol] 0.40 mg/dL 0.20-1.00 [facility] Comment on above: For patients on eltr ombopag therapy, use of Dimension [place] TBIL is not recommended. Chloride [Moles/Vol] 109 mmol/L 98-107 [facility] Glucose [Mass/Vol] 83 mg/dL 74-106 [facility] Potassium [Moles/Vol] 4.2 mmol/L 3.5-5.1 [facility] Protein [Mass/Vol] 6.9 g/dL 6.4-8.2 [facility] Sodium [Moles/Vol] 143 mmol/L 136-145 [facility] WBC (Bld) [#/Vol] 7.6 10*3/uL 4.4-11.0 [facility] Blood erythrocytes count (nu mber/volume)Ordered By: Ender Oates on 03-10-2022 RBC (Bld) [#/Vol] 4.43 10*6/uL 4.2-5.4 [facility] Blood hemoglobin measurement (mass/volume)Ordered By: Ender Oates on 03-10-2022 Hemoglobin (Bld) [Mass/Vol] 14.2 g/dL 12.0-15.0 [facility] Blood platelet mean volumeOr dered By: Ender Oates on 03-10-2022 Platelet mean volume (Bld) [Entitic vol] 11.6 fL 6.2-12.0 [facility] Determination of erythrocyte mean corpuscular volume (MCV)Ordered By: Ender Oates on 03-10-2022 MCV (RBC) [Entitic vol] 98.4 fL 81-99 [facility] Hematocrit Auto (Bld) [Volum e fraction]Ordered By: Ender Oates on 03-10-2022 Hematocrit (Bld) [Volume fraction] 43.6 % 37-47 [facility] - Chemistry and C hemistry - challengeOrdered By: Ender Oates on 03-10-2022 ALP [Catalytic activity/Vol] 67 U/L 45-117 [facility] ALT [Catalytic activity/Vol] 20 U/L 13-56 [facility] CO2 [Moles/Vol] 27.0 mmol/L 21.0-32.0 [facility] Globulin (S) [Mass/Vol] 3.9 g/dL 2.2-4.2 [facility] Urea nitrogen/Creatinine [Mass ratio] 39.6 mg/mg 10-20 [facility] - Hematology and Cell countsOrdered By: Ender Oates on 03-10-2022 Erythrocyte distribution width (RBC) [Entitic vol] 50.4 fL 35.1-43.9 [facility] Erythrocyte distribution width (RBC) [Ratio] 13.8 % 11.6-14.6 [facility] MCH (RBC) [Entitic mass] 32.1 pg 27.0-32.0 [facility] MCHC Auto (RBC) [Mass/Vol]Or dered By: Ender Oates on 03-10-2022 MCHC (RBC) [Mass/Vol] 32.6 g/dL 32-36 [facility] No Panel InformationOrdered By: Ender Oates on 03-10-2022 Estimated GFR (MDRD) Amer 127 mL/min >60 [facility] Comment on above: GFR Calc Estimated GFR (MDRD) Non-Af Amer 105 mL/min >60 [facility] Comment on above: Non- GFR Calc Platelets bldOrdered By: Ronaldo Oates on 03-10-2022 Platelets (Bld) [#/Vol] 163 10*3/uL 150-450 [facility] Serum or plasma albumin tammie urement (mass/volume)Ordered By: Ender Oates on 03-10-2022 Albumin [Mass/Vol] 3.0 g/dL 3.2-5.0 [facility] Serum or plasma albumin/glob ulin mass ratioOrdered By: Ender Oates on 03-10-2022 Albumin/Globulin [Mass ratio] 0.8 {ratio} 0.9-2.4 [facility] Serum or plasma calcium tammie urement (mass/volume)Ordered By: Ender Oates on 03-10-2022 Calcium [Mass/Vol] 9.0 mg/dL 8.5-10.1 [facility] Serum or plasma creatinine m easurement (mass/volume)Ordered By: Ender Oates on 03-10-2022 Creatinine [Mass/Vol] 0.61 mg/dL 0.55-1.02 [facility] Comment on above: The validity of the calculated GFR & GFRAA in patients over 70 years has not been determined. Clinical correlation is essential. Serum or plasma urea nitroge n measurement (mass/volume)Ordered By: Ender Oates on 03-10-2022 Urea nitrogen [Mass/Vol] 24 mg/dL 7-18 [facility] Thin prep Papanicolaou smear with manual screeningOrdered By: Ender Oates on 03-10-2022 Thin prep Papanicolaou smear with manual screening 15 U/L 15-37 [facility] [facility] Papanicolaou smear with manual screening 7 5-15 [facility] Basophil percentageon 2021 Bilirubin [Mass/Vol] 0.30 mg/dL 0.20-1.00 [facility] Work Phone: Comment on above: For patients on eltr ombopag therapy, use of Dimension [place] TBIL is not recommended. Chloride [Moles/Vol] 105 mmol/L 98-107 [facility] Work Phone: Cholesterol [Mass/Vol] 114 mg/dL <200 [facility] Work Phone: Comment on above: <200 mg/dL Desirable 200-240 mg/dL Borderline >240 mg/dL High Risk Glucose [Mass/Vol] 79 mg/dL 74-106 [facility] Work Phone: Potassium [Moles/Vol] 4.1 mmol/L 3.5-5.1 [facility] Work Phone: Protein [Mass/Vol] 6.7 g/dL 6.4-8.2 [facility] Work Phone: Sodium [Moles/Vol] 139 mmol/L 136-145 [facility] Work Phone: Triglyceride [Mass/Vol] 94 mg/dL <199 [facility] Work Phone: Comment on above: The drugs N-Acetylcy steine and Metamizole may falsely depress this assay.Serum Triglycerides Reference Interval Normal <150 mg/dL Borderline high 150 - 199 mg/dL High 200 - 499 mg/dL Very High > or = 500 mg/dL WBC (Bld) [#/Vol] 7.5 10*3/uL 4.4-11.0 [facility] Work Phone: [phone] Blood erythrocytes count (nu mber/volume)on 02-10-2022 RBC (Bld) [#/Vol] 4.45 10*6/uL 4.2-5.4 [facility] Work Phone: [phone] Blood hemoglobin measurement (mass/volume)on 02-10-2022 Hemoglobin (Bld) [Mass/Vol] 14.7 g/dL 12.0-15.0 [facility] Work Phone: [phone] Blood platelet mean volumeon 02-10-2022 Platelet mean volume (Bld) [Entitic vol] 10.7 fL 6.2-12.0 [facility] Work Phone: [phone] Determination of erythrocyte mean corpuscular volume (MCV)on 02-10-2022 MCV (RBC) [Entitic vol] 100.2 fL 81-99 [facility] Work Phone: [phone] Hematocrit Auto (Bld) [Volum e fraction]on 02-10-2022 Hematocrit (Bld) [Volume fraction] 44.6 % 37-47 [facility] Work Phone: [phone] Laboratory - Chemistry and C hemistry - challengeon 02-10-2022 ALP [Catalytic activity/Vol] 58 U/L 45-117 [facility] Work Phone: [phone] ALT [Catalytic activity/Vol] 18 U/L 13-56 [facility] Work Phone: [phone] CO2 [Moles/Vol] 29.0 mmol/L 21.0-32.0 [facility] Work Phone: [phone] Globulin (S) [Mass/Vol] 3.9 g/dL 2.2-4.2 [facility] Work Phone: Urea nitrogen/Creatinine [Mass ratio] 40.5 mg/mg 10-20 [facility] Work Phone: Laboratory - Hematology and Cell countson 02-10-2022 Erythrocyte distribution width (RBC) [Entitic vol] 51.3 fL 35.1-43.9 [facility] Work Phone: Erythrocyte distribution width (RBC) [Ratio] 13.9 % 11.6-14.6 [facility] Work Phone: [phone] MCH (RBC) [Entitic mass] 33.0 pg 27.0-32.0 [facility] Work Phone: MCHC Auto (RBC) [Mass/Vol]on 02-10-2022 MCHC (RBC) [Mass/Vol] 33.0 g/dL 32-36 [facility] Work Phone: No Panel Informationon 02-10 Estimated GFR (MDRD) Amer 137 mL/min >60 [facility] Work Phone: Comment on above: GFR Calc Estimated GFR (MDRD) Non-Af Amer 113 mL/min >60 [facility] Work Phone: [phone] Comment on above: Non- GFR Calc Valproic Acid (Depakene) Level 34 ug/mL 50-100 [facility] Work Phone: Platelets bldon 02-10-2022 Platelets (Bld) [#/Vol] 169 10*3/uL 150-450 [facility] Work Phone: Serum or plasma albumin tammie urement (mass/volume)on 02-10-2022 Albumin [Mass/Vol] 2.8 g/dL 3.2-5.0 [facility] Work Phone: [phone] Serum or plasma albumin/glob ulin mass ratioon 02-10-2022 Albumin/Globulin [Mass ratio] 0.7 {ratio} 0.9-2.4 [facility] Work Phone: [phone] Serum or plasma calcium tammie urement (mass/volume)on 02-10-2022 Calcium [Mass/Vol] 8.4 mg/dL 8.5-10.1 [facility] Work Phone: Serum or plasma cholesterol in HDL measurement (mass/volume)on 02-10-2022 Cholesterol in HDL [Mass/Vol] 50 mg/dL >40 [facility] Work Phone: Comment on above: The drugs N-Acetylcy steine and Metamizole may falsely depress this assay. Reference Range HDL <40 mg/dL Low HDL Cholesterol HDL >or= 60 mg/dL High HDL Cholesterol Serum or plasma cholesterol in VLDL measurement (mass/volume)on 02-10-2022 Cholesterol in VLDL [Mass/Vol] 19 mg/dL 5-40 [facility] Work Phone: [phone] Serum or plasma creatinine m easurement (mass/volume)on 02-10-2022 Creatinine [Mass/Vol] 0.57 mg/dL 0.55-1.02 [facility] Work Phone: Comment on above: The validity of the calculated GFR & GFRAA in patients over 70 years has not been determined. Clinical correlation is essential. Serum or plasma low density lipoprotein (LDL) cholesterol measurement (mass/volume)on 02-10-2022 Cholesterol in LDL [Mass/Vol] 45 mg/dL 0-130 [facility] Work Phone: Serum or plasma urea nitroge n measurement (mass/volume)on 02-10-2022 Urea nitrogen [Mass/Vol] 23 mg/dL 7-18 [facility] Work Phone: [phone] Thin prep Papanicolaou smear with manual screeningon 02-10-2022 Thin prep Papanicolaou smear with manual screening 15 U/L 15-37 [facility] Work Phone: [phone] Thin prep Papanicolaou smear with manual screening 5 5-15 [facility] Work Phone: [phone] Basophil percentageon 2021 Bilirubin [Mass/Vol] 0.50 mg/dL 0.20-1.00 [facility] Work Phone: [phone] Comment on above: For patients on eltr ombopag therapy, use of [place] TBIL is not recommended. Chloride [Moles/Vol] 105 mmol/L 98-[address] [facility] Work Phone: Glucose [Mass/Vol] 83 mg/dL 74-106 [facility] Work Phone: Potassium [Moles/Vol] 3.9 mmol/L 3.5-5.[address] [facility] Work Phone: Protein [Mass/Vol] 6.5 g/dL 6.4-8.2 [facility] Work Phone: [phone] Sodium [Moles/Vol] 140 mmol/L 136-145 [facility] Work Phone: WBC (Bld) [#/Vol] 7.1 10*3/uL 4.4-11.0 [facility] Work Phone: Blood erythrocytes count (nu mber/volume)on 01-06-2022 RBC (Bld) [#/Vol] 4.36 10*6/uL 4.2-5.4 [facility] Work Phone: Blood hemoglobin measurement (mass/volume)on 01-06-2022 Hemoglobin (Bld) [Mass/Vol] 14.0 g/dL 12.0-15.0 [facility] Work Phone: Blood platelet mean volumeon 01-06-2022 Platelet mean volume (Bld) [Entitic vol] 11.0 fL 6.2-12.0 [facility] Work Phone: Determination of erythrocyte mean corpuscular volume (MCV)on 01-06-2022 MCV (RBC) [Entitic vol] 99.5 fL 81-99 [facility] Work Phone: Hematocrit Auto (Bld) [Volum e fraction]on 01-06-2022 Hematocrit (Bld) [Volume fraction] 43.4 % 37-47 [facility] Work Phone: Laboratory - Chemistry and C hemistry - challengeon 01-06-2022 ALP [Catalytic activity/Vol] 61 U/L 45-117 [facility] Work Phone: ALT [Catalytic activity/Vol] 18 U/L 13-56 [facility] Work Phone: [phone] CO2 [Moles/Vol] 34.0 mmol/L 21.0-32.0 [facility] Work Phone: [phone] Globulin (S) [Mass/Vol] 3.8 g/dL 2.2-4.2 [facility] Work Phone: [phone] Urea nitrogen/Creatinine [Mass ratio] 37.6 mg/mg 10-20 [facility] Work Phone: [phone] Laboratory - Hematology and Cell countson 01-06-2022 Erythrocyte distribution width (RBC) [Entitic vol] 54.3 fL 35.1-43.9 [facility] Work Phone: [phone] Erythrocyte distribution width (RBC) [Ratio] 14.6 % 11.6-14.6 [facility] Work Phone: [phone] MCH (RBC) [Entitic mass] 32.1 pg 27.0-32.0 [facility] Work Phone: MCHC Auto (RBC) [Mass/Vol]on 01-06-2022 MCHC (RBC) [Mass/Vol] 32.3 g/dL 32-36 [facility] Work Phone: No Panel Informationon 01-06 Estimated GFR (MDRD) Amer 133 mL/min >60 [facility] Work Phone: [phone] Comment on above: GFR Calc Estimated GFR (MDRD) Non-Af Amer 110 mL/min >60 [facility] Work Phone: [phone] Comment on above: Non- GFR Calc Platelets bldon 01-06-2022 Platelets (Bld) [#/Vol] 169 10*3/uL 150-450 [facility] Work Phone: [phone] Serum or plasma albumin tammie urement (mass/volume)on 01-06-2022 Albumin [Mass/Vol] 2.7 g/dL 3.2-5.0 [facility] Work Phone: Serum or plasma albumin/glob ulin mass ratioon 01-06-2022 Albumin/Globulin [Mass ratio] 0.7 {ratio} 0.9-2.4 [facility] Work Phone: Serum or plasma calcium tammie urement (mass/volume)on 01-06-2022 Calcium [Mass/Vol] 8.3 mg/dL 8.5-10.[address] [facility] Work Phone: Serum or plasma creatinine m easurement (mass/volume)on 01-06-2022 Creatinine [Mass/Vol] 0.58 mg/dL 0.55-1.02 [facility] Work Phone: Comment on above: The validity of the calculated GFR & GFRAA in patients over 70 years has not been determined. Clinical correlation is essential. Serum or plasma urea nitroge n measurement (mass/volume)on 01-06-2022 Urea nitrogen [Mass/Vol] 22 mg/dL 7-18 [facility] Work Phone: Thin prep Papanicolaou smear with manual screeningon 01-06-2022 Thin prep Papanicolaou smear with manual screening 16 U/L 15-37 [facility] Work Phone: Thin prep Papanicolaou smear with manual screening 1 5-15 [facility] Work Phone: Basophil percentageon 2021 Cholesterol [Mass/Vol] 141 mg/dL <200 [facility] Work Phone: Comment on above: <200 mg/dL Desirable 200-240 mg/dL Borderline >240 mg/dL High Risk Triglyceride [Mass/Vol] 171 mg/dL <199 [facility] Work Phone: Comment on above: The drugs N-Acetylcy steine and Metamizole may falsely depress this assay.Serum Triglycerides Reference Interval Normal <150 mg/dL Borderline high 150 - 199 mg/dL High 200 - 499 mg/dL Very High > or = 500 mg/dL Serum or plasma cholesterol in HDL measurement (mass/volume)on 12-27-2021 Cholesterol in HDL [Mass/Vol] 47 mg/dL >40 [facility] Work Phone: Comment on above: The drugs N-Acetylcy steine and Metamizole may falsely depress this assay. Reference Range HDL <40 mg/dL Low HDL Cholesterol HDL >or= 60 mg/dL High HDL Cholesterol Serum or plasma cholesterol in VLDL measurement (mass/volume)on 12-27-2021 Cholesterol in VLDL [Mass/Vol] 34 mg/dL 5-40 [facility] Work Phone: Serum or plasma low density lipoprotein (LDL) cholesterol measurement (mass/volume)on 12-27-2021 Cholesterol in LDL [Mass/Vol] 60 mg/dL 0-130 [facility] Work Phone: Basophil percentageon 2021 Bilirubin [Mass/Vol] 0.30 mg/dL 0.20-1.00 [facility] Work Phone: Comment on above: For patients on eltr ombopag therapy, use of [place] TBIL is not recommended. Chloride [Moles/Vol] 101 mmol/L 98-107 [facility] Work Phone: Glucose [Mass/Vol] 74 mg/dL 74-106 [facility] Work Phone: [phone] Potassium [Moles/Vol] 4.6 mmol/L 3.5-5.1 [facility] Work Phone: [phone] Protein [Mass/Vol] 7.9 g/dL 6.4-8.2 [facility] Work Phone: [phone] Sodium [Moles/Vol] 139 mmol/L 136-145 [facility] Work Phone: [phone] WBC (Bld) [#/Vol] 7.5 10*3/uL 4.4-11.0 [facility] Work Phone: [phone] Blood erythrocytes count (nu mber/volume)on 12-09-2021 RBC (Bld) [#/Vol] 4.80 10*6/uL 4.2-5.4 [facility] Work Phone: [phone] Blood hemoglobin measurement (mass/volume)on 12-09-2021 Hemoglobin (Bld) [Mass/Vol] 15.4 g/dL 12.0-15.0 [facility] Work Phone: [phone] Blood platelet mean volumeon 12-09-2021 Platelet mean volume (Bld) [Entitic vol] 11.3 fL 6.2-12.0 [facility] Work Phone: [phone] Determination of erythrocyte mean corpuscular volume (MCV)on 12-09-2021 MCV (RBC) [Entitic vol] 103.1 fL 81-99 [facility] Work Phone: [phone] Hematocrit Auto (Bld) [Volum e fraction]on 12-09-2021 Hematocrit (Bld) [Volume fraction] 49.5 % 37-47 [facility] Work Phone: [phone] Laboratory - Chemistry and C hemistry - challengeon 12-09-2021 ALP [Catalytic activity/Vol] 76 U/L 45-117 [facility] Work Phone: ALT [Catalytic activity/Vol] 21 U/L 13-56 [facility] Work Phone: CO2 [Moles/Vol] 28.0 mmol/L 21.0-32.0 [facility] Work Phone: [phone] Globulin (S) [Mass/Vol] 4.5 g/dL 2.2-4.2 [facility] Work Phone: [phone] Urea nitrogen/Creatinine [Mass ratio] 36.1 mg/mg 10-20 [facility] Work Phone: [phone] Laboratory - Hematology and Cell countson 12-09-2021 Erythrocyte distribution width (RBC) [Entitic vol] 57.3 fL 35.1-43.9 [facility] Work Phone: [phone] Erythrocyte distribution width (RBC) [Ratio] 14.9 % 11.6-14.6 [facility] Work Phone: [phone] MCH (RBC) [Entitic mass] 32.1 pg 27.0-32.0 [facility] Work Phone: [phone] MCHC Auto (RBC) [Mass/Vol]on 12-09-2021 MCHC (RBC) [Mass/Vol] 31.1 g/dL 32-36 [facility] Work Phone: No Panel Informationon 12-09 Estimated GFR (MDRD) Amer 109 mL/min >60 [facility] Work Phone: Comment on above: GFR Calc Estimated GFR (MDRD) Non-Af Amer 90 mL/min >60 [facility] Work Phone: Comment on above: Non- GFR Calc Platelets bldon 12-09-2021 Platelets (Bld) [#/Vol] 189 10*3/uL 150-450 [facility] Work Phone: Serum or plasma albumin tammie urement (mass/volume)on 12-09-2021 Albumin [Mass/Vol] 3.4 g/dL 3.2-5.0 [facility] Work Phone: Serum or plasma albumin/glob ulin mass ratioon 12-09-2021 Albumin/Globulin [Mass ratio] 0.8 {ratio} 0.9-2.4 [facility] Work Phone: Serum or plasma calcium tammie urement (mass/volume)on 12-09-2021 Calcium [Mass/Vol] 9.4 mg/dL 8.5-10.1 [facility] Work Phone: Serum or plasma creatinine m easurement (mass/volume)on 12-09-2021 Creatinine [Mass/Vol] 0.69 mg/dL 0.55-1.02 [facility] Work Phone: Comment on above: The validity of the calculated GFR & GFRAA in patients over 70 years has not been determined. Clinical correlation is essential. Serum or plasma urea nitroge n measurement (mass/volume)on 12-09-2021 Urea nitrogen [Mass/Vol] 25 mg/dL 7-18 [facility] Work Phone: Thin prep Papanicolaou smear with manual screeningon 12-09-2021 Thin prep Papanicolaou smear with manual screening 25 U/L 15-37 [facility] Work Phone: [phone] Thin prep Papanicolaou smear with manual screening 10 5-15 [facility] Work Phone: [phone] Basophil percentageon 2021 Bilirubin [Mass/Vol] 0.40 mg/dL 0.20-1.00 [facility] Work Phone: [phone] Comment on above: For patients on eltr ombopag therapy, use of [place] TBIL is not recommended. Chloride [Moles/Vol] 104 mmol/L 98-107 [facility] Work Phone: [phone] Glucose [Mass/Vol] 71 mg/dL 74-106 [facility] Work Phone: [phone] Potassium [Moles/Vol] 4.0 mmol/L 3.5-5.1 [facility] Work Phone: [phone] Protein [Mass/Vol] 6.7 g/dL 6.4-8.2 [facility] Work Phone: [phone] Sodium [Moles/Vol] 137 mmol/L 136-145 [facility] Work Phone: [phone] WBC (Bld) [#/Vol] 6.7 10*3/uL 4.4-11.0 [facility] Work Phone: [phone] Blood erythrocytes count (nu mber/volume)on 11-11-2021 RBC (Bld) [#/Vol] 4.37 10*6/uL 4.2-5.4 [facility] Work Phone: [phone] Blood hemoglobin measurement (mass/volume)on 11-11-2021 Hemoglobin (Bld) [Mass/Vol] 14.1 g/dL 12.0-15.0 [facility] Work Phone: [phone] Blood platelet mean volumeon 11-11-2021 Platelet mean volume (Bld) [Entitic vol] 10.9 fL 6.2-12.0 [facility] Work Phone: [phone] Determination of erythrocyte mean corpuscular volume (MCV)on 11-11-2021 MCV (RBC) [Entitic vol] 98.2 fL 81-99 [facility] Work Phone: [phone] Hematocrit Auto (Bld) [Volum e fraction]on 11-11-2021 Hematocrit (Bld) [Volume fraction] 42.9 % 37-47 [facility] Work Phone: [phone] Laboratory - Chemistry and C hemistry - challengeon 11-11-2021 ALP [Catalytic activity/Vol] 60 U/L 45-117 [facility] Work Phone: [phone] ALT [Catalytic activity/Vol] 25 U/L 13-56 [facility] Work Phone: [phone] CO2 [Moles/Vol] 28.0 mmol/L 21.0-32.0 [facility] Work Phone: [phone] Globulin (S) [Mass/Vol] 3.9 g/dL 2.2-4.2 [facility] Work Phone: [phone] Urea nitrogen/Creatinine [Mass ratio] 43.8 mg/mg 10-20 [facility] Work Phone: [phone] Laboratory - Hematology and Cell countson 11-11-2021 Erythrocyte distribution width (RBC) [Entitic vol] 52.9 fL 35.1-43.9 [facility] Work Phone: [phone] Erythrocyte distribution width (RBC) [Ratio] 14.7 % 11.6-14.6 [facility] Work Phone: [phone] MCH (RBC) [Entitic mass] 32.3 pg 27.0-32.0 [facility] Work Phone: [phone] MCHC Auto (RBC) [Mass/Vol]on 11-11-2021 MCHC (RBC) [Mass/Vol] 32.9 g/dL 32-36 [facility] Work Phone: [phone] No Panel Informationon 11-11 Estimated GFR (MDRD) Amer 125 mL/min >60 [facility] Work Phone: Comment on above: GFR Calc Estimated GFR (MDRD) Non-Af Amer 103 mL/min >60 [facility] Work Phone: Comment on above: Non- GFR Calc Platelets bldon 11-11-2021 Platelets (Bld) [#/Vol] 189 10*3/uL 150-450 [facility] Work Phone: Serum or plasma albumin tammie urement (mass/volume)on 11-11-2021 Albumin [Mass/Vol] 2.8 g/dL 3.2-5.0 [facility] Work Phone: [phone] Serum or plasma albumin/glob ulin mass ratioon 11-11-2021 Albumin/Globulin [Mass ratio] 0.7 {ratio} 0.9-2.4 [facility] Work Phone: [phone] Serum or plasma calcium tammie urement (mass/volume)on 11-11-2021 Calcium [Mass/Vol] 8.5 mg/dL 8.5-10.1 [facility] Work Phone: [phone] Serum or plasma creatinine m easurement (mass/volume)on 11-11-2021 Creatinine [Mass/Vol] 0.62 mg/dL 0.55-1.02 [facility] Work Phone: Comment on above: The validity of the calculated GFR & GFRAA in patients over 70 years has not been determined. Clinical correlation is essential. Serum or plasma urea nitroge n measurement (mass/volume)on 11-11-2021 Urea nitrogen [Mass/Vol] 27 mg/dL 7-18 [facility] Work Phone: [phone] Thin prep Papanicolaou smear with manual screeningon 11-11-2021 Thin prep Papanicolaou smear with manual screening 26 U/L 15-37 [facility] Work Phone: [phone] Thin prep Papanicolaou smear with manual screening 5 5-15 [facility] Work Phone: [phone] No Panel Informationon 11-08 Valproic Acid (Depakene) Level 30 ug/mL 50-100 [facility] Work Phone: Basophil percentageon 2021 Bilirubin [Mass/Vol] 0.40 mg/dL 0.20-1.00 [facility] Work Phone: Comment on above: For patients on eltr ombopag therapy, use of Dim[place] TBIL is not recommended. Chloride [Moles/Vol] 108 mmol/L 98-107 [facility] Work Phone: Glucose [Mass/Vol] 100 mg/dL 74-106 [facility] Work Phone: Comment on above: Fasting Glucose resu lt from 100 to 125 mg/dL suggests IMPAIRED HOMEOSTASIS per A.D.A. criteria. Potassium [Moles/Vol] 4.4 mmol/L 3.5-5.1 [facility] Work Phone: Protein [Mass/Vol] 7.9 g/dL 6.4-8.2 [facility] Work Phone: [phone] Sodium [Moles/Vol] 139 mmol/L 136-145 [facility] Work Phone: [phone] WBC (Bld) [#/Vol] 9.3 10*3/uL 4.4-11.0 [facility] Work Phone: [phone] Blood erythrocytes count (nu mber/volume)on 10-07-2021 RBC (Bld) [#/Vol] 4.96 10*6/uL 4.2-5.4 [facility] Work Phone: [phone] Blood hemoglobin measurement (mass/volume)on 10-07-2021 Hemoglobin (Bld) [Mass/Vol] 15.5 g/dL 12.0-15.0 [facility] Work Phone: [phone] Blood platelet mean volumeon 10-07-2021 Platelet mean volume (Bld) [Entitic vol] 11.6 fL 6.2-12.0 [facility] Work Phone: [phone] Determination of erythrocyte mean corpuscular volume (MCV)on 10-07-2021 MCV (RBC) [Entitic vol] 99.6 fL 81-99 [facility] Work Phone: [phone] Hematocrit Auto (Bld) [Volum e fraction]on 10-07-2021 Hematocrit (Bld) [Volume fraction] 49.4 % 37-47 [facility] Work Phone: Laboratory - Chemistry and C hemistry - challengeon 10-07-2021 ALP [Catalytic activity/Vol] 74 U/L 45-117 [facility] Work Phone: ALT [Catalytic activity/Vol] 17 U/L 13-56 [facility] Work Phone: [phone] CO2 [Moles/Vol] 27.0 mmol/L 21.0-32.0 [facility] Work Phone: [phone] Globulin (S) [Mass/Vol] 4.7 g/dL 2.2-4.2 [facility] Work Phone: Urea nitrogen/Creatinine [Mass ratio] 43.1 mg/mg 10-20 [facility] Work Phone: Laboratory - Hematology and Cell countson 10-07-2021 Erythrocyte distribution width (RBC) [Entitic vol] 52.7 fL 35.1-43.9 [facility] Work Phone: Erythrocyte distribution width (RBC) [Ratio] 14.4 % 11.6-14.6 [facility] Work Phone: MCH (RBC) [Entitic mass] 31.3 pg 27.0-32.0 [facility] Work Phone: MCHC Auto (RBC) [Mass/Vol]on 10-07-2021 MCHC (RBC) [Mass/Vol] 31.4 g/dL 32-36 [facility] Work Phone: No Panel Informationon 10-07 Estimated GFR (MDRD) Amer 101 mL/min >60 [facility] Work Phone: Comment on above: GFR Calc Estimated GFR (MDRD) Non-Af Amer 83 mL/min >60 [facility] Work Phone: Comment on above: Non- GFR Calc Platelets bldon 10-07-2021 Platelets (Bld) [#/Vol] 220 10*3/uL 150-450 [facility] Work Phone: Serum or plasma albumin tammie urement (mass/volume)on 10-07-2021 Albumin [Mass/Vol] 3.2 g/dL 3.2-5.0 [facility] Work Phone: Serum or plasma albumin/glob ulin mass ratioon 10-07-2021 Albumin/Globulin [Mass ratio] 0.7 {ratio} 0.9-2.4 [facility] Work Phone: Serum or plasma calcium tammie urement (mass/volume)on 10-07-2021 Calcium [Mass/Vol] 9.0 mg/dL 8.5-10.1 [facility] Work Phone: Serum or plasma creatinine m easurement (mass/volume)on 10-07-2021 Creatinine [Mass/Vol] 0.74 mg/dL 0.55-1.02 [facility] Work Phone: Comment on above: The validity of the calculated GFR & GFRAA in patients over 70 years has not been determined. Clinical correlation is essential. Serum or plasma urea nitroge n measurement (mass/volume)on 10-07-2021 Urea nitrogen [Mass/Vol] 32 mg/dL 7-18 [facility] Work Phone: Thin prep Papanicolaou smear with manual screeningon 10-07-2021 Thin prep Papanicolaou smear with manual screening 16 U/L 15-37 [facility] Work Phone: Thin prep Papanicolaou smear with manual screening 4 5-15 [facility] Work Phone: Basophil percentageon 2021 Bilirubin [Mass/Vol] 0.50 mg/dL 0.20-1.00 [facility] Work Phone: Comment on above: For patients on eltr ombopag therapy, use of Dim[place] TBIL is not recommended. Chloride [Moles/Vol] 103 mmol/L 98-107 [facility] Work Phone: Glucose [Mass/Vol] 93 mg/dL 74-106 [facility] Work Phone: [phone] Potassium [Moles/Vol] 4.4 mmol/L 3.5-5.1 [facility] Work Phone: [phone] Comment on above: Slight Hemolysis, Re sult may be falsely increased. Protein [Mass/Vol] 7.7 g/dL 6.4-8.2 [facility] Work Phone: [phone] Sodium [Moles/Vol] 137 mmol/L 136-145 [facility] Work Phone: [phone] WBC (Bld) [#/Vol] 8.4 10*3/uL 4.4-11.0 [facility] Work Phone: [phone] Blood erythrocytes count (nu mber/volume)on 09-09-2021 RBC (Bld) [#/Vol] 4.68 10*6/uL 4.2-5.4 [facility] Work Phone: [phone] Blood hemoglobin measurement (mass/volume)on 09-09-2021 Hemoglobin (Bld) [Mass/Vol] 14.4 g/dL 12.0-15.0 [facility] Work Phone: [phone] Blood platelet mean volumeon 09-09-2021 Platelet mean volume (Bld) [Entitic vol] 11.3 fL 6.2-12.0 [facility] Work Phone: [phone] Determination of erythrocyte mean corpuscular volume (MCV)on 09-09-2021 MCV (RBC) [Entitic vol] 96.6 fL 81-99 [facility] Work Phone: [phone] Hematocrit Auto (Bld) [Volum e fraction]on 09-09-2021 Hematocrit (Bld) [Volume fraction] 45.2 % 37-47 [facility] Work Phone: [phone] Laboratory - Chemistry and C hemistry - challengeon 09-09-2021 ALP [Catalytic activity/Vol] 75 U/L 45-117 [facility] Work Phone: [phone] ALT [Catalytic activity/Vol] 22 U/L 13-56 [facility] Work Phone: [phone] CO2 [Moles/Vol] 28.0 mmol/L 21.0-32.0 [facility] Work Phone: [phone] Globulin (S) [Mass/Vol] 4.4 g/dL 2.2-4.2 [facility] Work Phone: [phone] Urea nitrogen/Creatinine [Mass ratio] 39.4 mg/mg 10-20 [facility] Work Phone: [phone] Laboratory - Hematology and Cell countson 09-09-2021 Erythrocyte distribution width (RBC) [Entitic vol] 51.3 fL 35.1-43.9 [facility] Work Phone: [phone] Erythrocyte distribution width (RBC) [Ratio] 14.4 % 11.6-14.6 [facility] Work Phone: [phone] MCH (RBC) [Entitic mass] 30.8 pg 27.0-32.0 [facility] Work Phone: [phone] MCHC Auto (RBC) [Mass/Vol]on 09-09-2021 MCHC (RBC) [Mass/Vol] 31.9 g/dL 32-36 [facility] Work Phone: [phone] No Panel Informationon 09-09 Estimated GFR (MDRD) Amer 102 mL/min >60 [facility] Work Phone: [phone] Comment on above: GFR Calc Estimated GFR (MDRD) Non-Af Amer 84 mL/min >60 [facility] Work Phone: [phone] Comment on above: Non- GFR Calc Platelets bldon 09-09-2021 Platelets (Bld) [#/Vol] 215 10*3/uL 150-450 [facility] Work Phone: [phone] Serum or plasma albumin tammie urement (mass/volume)on 09-09-2021 Albumin [Mass/Vol] 3.3 g/dL 3.2-5.0 [facility] Work Phone: [phone] Serum or plasma albumin/glob ulin mass ratioon 09-09-2021 Albumin/Globulin [Mass ratio] 0.8 {ratio} 0.9-2.4 [facility] Work Phone: Serum or plasma calcium tammie urement (mass/volume)on 09-09-2021 Calcium [Mass/Vol] 8.4 mg/dL 8.5-10.1 [facility] Work Phone: Serum or plasma creatinine m easurement (mass/volume)on 09-09-2021 Creatinine [Mass/Vol] 0.74 mg/dL 0.55-1.02 [facility] Work Phone: Comment on above: The validity of the calculated GFR & GFRAA in patients over 70 years has not been determined. Clinical correlation is essential. Serum or plasma urea nitroge n measurement (mass/volume)on 09-09-2021 Urea nitrogen [Mass/Vol] 29 mg/dL 7-18 [facility] Work Phone: Thin prep Papanicolaou smear with manual screeningon 09-09-2021 Thin prep Papanicolaou smear with manual screening 21 U/L 15-37 [facility] Work Phone: Comment on above: Slight Hemolysis, Re sult may be falsely increased. Thin prep Papanicolaou smear with manual screening 6 5-15 [facility] Work Phone: Basophil percentageon 2021 Bilirubin [Mass/Vol] 0.30 mg/dL 0.20-1.00 [facility] Work Phone: Comment on above: For patients on eltr ombopag therapy, use of Dimension [place] TBIL is not recommended. Chloride [Moles/Vol] 103 mmol/L 98-107 [facility] Work Phone: [phone] Cholesterol [Mass/Vol] 149 mg/dL <200 [facility] Work Phone: [phone] Comment on above: <200 mg/dL Desirable 200-240 mg/dL Borderline >240 mg/dL High Risk Glucose [Mass/Vol] 110 mg/dL 74-106 [facility] Work Phone: [phone] Comment on above: Fasting Glucose resu lt from 100 to 125 mg/dL suggests IMPAIRED HOMEOSTASIS per A.D.A. criteria. Potassium [Moles/Vol] 4.3 mmol/L 3.5-5.1 [facility] Work Phone: [phone] Protein [Mass/Vol] 7.2 g/dL 6.4-8.2 [facility] Work Phone: [phone] Sodium [Moles/Vol] 138 mmol/L 136-145 [facility] Work Phone: [phone] Triglyceride [Mass/Vol] 107 mg/dL <199 [facility] Work Phone: [phone] Comment on above: The drugs N-Acetylcy steine and Metamizole may falsely depress this assay.Serum Triglycerides Reference Interval Normal <150 mg/dL Borderline high 150 - 199 mg/dL High 200 - 499 mg/dL Very High > or = 500 mg/dL WBC (Bld) [#/Vol] 7.9 10*3/uL 4.4-11.0 [facility] Work Phone: [phone] Blood erythrocytes count (nu mber/volume)on 08-08-2021 RBC (Bld) [#/Vol] 4.45 10*6/uL 4.2-5.4 [facility] Work Phone: [phone] Blood hemoglobin measurement (mass/volume)on 08-08-2021 Hemoglobin (Bld) [Mass/Vol] 14.1 g/dL 12.0-15.0 [facility] Work Phone: [phone] Blood platelet mean volumeon 08-08-2021 Platelet mean volume (Bld) [Entitic vol] 11.2 fL 6.2-12.0 [facility] Work Phone: [phone] Determination of erythrocyte mean corpuscular volume (MCV)on 08-08-2021 MCV (RBC) [Entitic vol] 97.5 fL 81-99 [facility] Work Phone: [phone] Hematocrit Auto (Bld) [Volum e fraction]on 08-08-2021 Hematocrit (Bld) [Volume fraction] 43.4 % 37-47 [facility] Work Phone: Laboratory - Chemistry and C hemistry - challengeon 08-08-2021 ALP [Catalytic activity/Vol] 77 U/L 45-117 [facility] Work Phone: ALT [Catalytic activity/Vol] 17 U/L 13-56 [facility] Work Phone: CO2 [Moles/Vol] 31.0 mmol/L 21.0-32.0 [facility] Work Phone: Globulin (S) [Mass/Vol] 4.1 g/dL 2.2-4.2 [facility] Work Phone: Urea nitrogen/Creatinine [Mass ratio] 34.6 mg/mg 10-20 [facility] Work Phone: Laboratory - Hematology and Cell countson 08-08-2021 Erythrocyte distribution width (RBC) [Entitic vol] 51.3 fL 35.1-43.9 [facility] Work Phone: Erythrocyte distribution width (RBC) [Ratio] 14.3 % 11.6-14.6 [facility] Work Phone: MCH (RBC) [Entitic mass] 31.7 pg 27.0-32.0 [facility] Work Phone: MCHC Auto (RBC) [Mass/Vol]on 08-08-2021 MCHC (RBC) [Mass/Vol] 32.5 g/dL 32-36 [facility] Work Phone: No Panel Informationon 08-08 Estimated GFR (MDRD) Amer 109 mL/min >60 [facility] Work Phone: Comment on above: GFR Calc Estimated GFR (MDRD) Non-Af Amer 90 mL/min >60 [facility] Work Phone: Comment on above: Non- GFR Calc Valproic Acid (Depakene) Level 36 ug/mL 50-100 [facility] Work Phone: [phone] Platelets bldon 08-08-2021 Platelets (Bld) [#/Vol] 203 10*3/uL 150-450 [facility] Work Phone: Serum or plasma albumin tammie urement (mass/volume)on 08-08-2021 Albumin [Mass/Vol] 3.1 g/dL 3.2-5.0 [facility] Work Phone: Serum or plasma albumin/glob ulin mass ratioon 08-08-2021 Albumin/Globulin [Mass ratio] 0.8 {ratio} 0.9-2.4 [facility] Work Phone: Serum or plasma calcium tammie urement (mass/volume)on 08-08-2021 Calcium [Mass/Vol] 8.4 mg/dL 8.5-10.1 [facility] Work Phone: Serum or plasma cholesterol in HDL measurement (mass/volume)on 08-08-2021 Cholesterol in HDL [Mass/Vol] 55 mg/dL >40 [facility] Work Phone: Comment on above: The drugs N-Acetylcy steine and Metamizole may falsely depress this assay. Reference Range HDL <40 mg/dL Low HDL Cholesterol HDL >or= 60 mg/dL High HDL Cholesterol Serum or plasma cholesterol in VLDL measurement (mass/volume)on 08-08-2021 Cholesterol in VLDL [Mass/Vol] 21 mg/dL 5-40 [facility] Work Phone: Serum or plasma creatinine m easurement (mass/volume)on 08-08-2021 Creatinine [Mass/Vol] 0.69 mg/dL 0.55-1.02 [facility] Work Phone: Comment on above: The validity of the calculated GFR & GFRAA in patients over 70 years has not been determined. Clinical correlation is essential. Serum or plasma low density lipoprotein (LDL) cholesterol measurement (mass/volume)on 08-08-2021 Cholesterol in LDL [Mass/Vol] 73 mg/dL 0-130 [facility] Work Phone: Serum or plasma urea nitroge n measurement (mass/volume)on 08-08-2021 Urea nitrogen [Mass/Vol] 24 mg/dL 7-18 [facility] Work Phone: Thin prep Papanicolaou smear with manual screeningon 08-08-2021 Thin prep Papanicolaou smear with manual screening 13 U/L 15-37 [facility] Work Phone: Thin prep Papanicolaou smear with manual screening 4 5-15 [facility] Work Phone: Absolute lymphocyte counton 07-23-2021 Lymphocytes Auto (Unsp spec) [#/Vol] 2.91 10*3/uL 0.83-4.51 [facility] Work Phone: Basophil percentageon 2021 Basophils/100 WBC (Bld) 1.1 % 0-1 [facility] Work Phone: Bilirubin [Mass/Vol] 0.30 mg/dL 0.20-1.00 [facility] Work Phone: Comment on above: For patients on eltr ombopag therapy, use of [place] TBIL is not recommended. Chloride [Moles/Vol] 105 mmol/L 98-107 [facility] Work Phone: Eosinophils/100 WBC (Bld) 2.8 % 0-5 [facility] Work Phone: Glucose [Mass/Vol] 78 mg/dL 74-106 [facility] Work Phone: Neutrophils (Bld) [#/Vol] 4.1 10*3/uL 2.0-7.7 [facility] Work Phone: Neutrophils/100 WBC (Bld) 50.5 % 47-70 [facility] Work Phone: Potassium [Moles/Vol] 4.3 mmol/L 3.5-5.1 [facility] Work Phone: Protein [Mass/Vol] 7.0 g/dL 6.4-8.2 [facility] Work Phone: Sodium [Moles/Vol] 139 mmol/L 136-145 [facility] Work Phone: WBC (Bld) [#/Vol] 8.1 10*3/uL 4.4-11.0 [facility] Work Phone: Blood erythrocytes count (nu mber/volume)on 07-23-2021 RBC (Bld) [#/Vol] 4.28 10*6/uL 4.2-5.4 [facility] Work Phone: Blood hemoglobin measurement (mass/volume)on 07-23-2021 Hemoglobin (Bld) [Mass/Vol] 13.5 g/dL 12.0-15.0 [facility] Work Phone: Blood lymphocytes/100 leukoc yteson 07-23-2021 Lymphocytes/100 WBC (Bld) 35.9 % 19-41 [facility] Work Phone: Blood monocytes/100 leukocyt eson 07-23-2021 Monocytes/100 WBC (Bld) 9.5 % 0-10 [facility] Work Phone: Blood platelet mean volumeon 07-23-2021 Platelet mean volume (Bld) [Entitic vol] 11.2 fL 6.2-12.0 [facility] Work Phone: Determination of erythrocyte mean corpuscular volume (MCV)on 07-23-2021 MCV (RBC) [Entitic vol] 95.6 fL 81-99 [facility] Work Phone: Erythrocyte sedimentation ra wade 07-23-2021 ESR (Bld) [Velocity] 7 mm/h 0-30 [facility] Work Phone: Hematocrit Auto (Bld) [Volum e fraction]on 07-23-2021 Hematocrit (Bld) [Volume fraction] 40.9 % 37-47 [facility] Work Phone: Laboratory - Chemistry and C hemistry - challengeon 07-23-2021 ALP [Catalytic activity/Vol] 68 U/L 45-117 [facility] Work Phone: ALT [Catalytic activity/Vol] 20 U/L 13-56 [facility] Work Phone: CO2 [Moles/Vol] 28.0 mmol/L 21.0-32.0 [facility] Work Phone: [phone] Globulin (S) [Mass/Vol] 4.1 g/dL 2.2-4.2 [facility] Work Phone: [phone] Urea nitrogen/Creatinine [Mass ratio] 43.6 mg/mg 10-20 [facility] Work Phone: [phone] Laboratory - Hematology and Cell countson 07-23-2021 Erythrocyte distribution width (RBC) [Entitic vol] 49.9 fL 35.1-43.9 [facility] Work Phone: [phone] Erythrocyte distribution width (RBC) [Ratio] 14.2 % 11.6-14.6 [facility] Work Phone: [phone] Immature granulocytes/100 WBC (Bld) 0.200 % 0.0-0.9 [facility] Work Phone: [phone] Comment on above: IG% - Immature Granu locytes (promyelocytes, myelocytes and metamyelocytes) > 1% indicates that a LEFT SHIFT is Present. MCH (RBC) [Entitic mass] 31.5 pg 27.0-32.0 [facility] Work Phone: [phone] Nucleated RBC/100 WBC (Bld) [Ratio] 0 % 0-5 [facility] Work Phone: [phone] MCHC Auto (RBC) [Mass/Vol]on 07-23-2021 MCHC (RBC) [Mass/Vol] 33.0 g/dL 32-36 [facility] Work Phone: [phone] Panel Informationon 07-23 Estimated GFR (MDRD) Amer 119 mL/min >60 [facility] Work Phone: [phone] Comment on above: GFR Calc Estimated GFR (MDRD) Non-Af Amer 99 mL/min >60 [facility] Work Phone: [phone] Comment on above: Non- GFR Calc Platelets bldon 07-23-2021 Platelets (Bld) [#/Vol] 200 10*3/uL 150-450 [facility] Work Phone: Serum or plasma C reactive p rotein measurement (mass/volume)on 07-23-2021 CRP [Mass/Vol] 3.68 mg/L 0.0-3.0 [facility] Work Phone: Comment on above: C-Reactive Protein ( CRP) provides useful information for thediagnosis, therapy and monitoring of inflammatory processesand associated diseases. For the evaluation of Relative Riskfor Cardiovascular Disease, a High Sensitivity CRP (HSCRP)should be ordered. Serum or plasma albumin tammie urement (mass/volume)on 07-23-2021 Albumin [Mass/Vol] 2.9 g/dL 3.2-5.0 [facility] Work Phone: Serum or plasma albumin/glob ulin mass ratioon 07-23-2021 Albumin/Globulin [Mass ratio] 0.7 {ratio} 0.9-2.4 [facility] Work Phone: Serum or plasma calcium tammie urement (mass/volume)on 07-23-2021 Calcium [Mass/Vol] 8.5 mg/dL 8.5-10.1 [facility] Work Phone: Serum or plasma creatinine m easurement (mass/volume)on 07-23-2021 Creatinine [Mass/Vol] 0.64 mg/dL 0.55-1.02 [facility] Work Phone: Comment on above: The validity of the calculated GFR & GFRAA in patients over 70 years has not been determined. Clinical correlation is essential. Serum or plasma urea nitroge n measurement (mass/volume)on 07-23-2021 Urea nitrogen [Mass/Vol] 28 mg/dL 7-18 [facility] Work Phone: [phone] Thin prep Papanicolaou smear with manual screeningon 07-23-2021 Thin prep Papanicolaou smear with manual screening 19 U/L 15-37 [facility] Work Phone: [phone] Thin prep Papanicolaou smear with manual screening 6 5-15 [facility] Work Phone: [phone] Absolute lymphocyte counton 07-16-2021 Lymphocytes Auto (Unsp spec) [#/Vol] 2.58 10*3/uL 0.83-4.51 [facility] Work Phone: Basophil percentageon 2021 Basophils/100 WBC (Bld) 1.1 % 0-1 [facility] Work Phone: Bilirubin [Mass/Vol] 0.30 mg/dL 0.20-1.00 [facility] Work Phone: Comment on above: For patients on eltr ombopag therapy, use of [place] TBIL is not recommended. Chloride [Moles/Vol] 103 mmol/L 98-107 [facility] Work Phone: Eosinophils/100 WBC (Bld) 3.0 % 0-5 [facility] Work Phone: Glucose [Mass/Vol] 74 mg/dL 74-106 [facility] Work Phone: Neutrophils (Bld) [#/Vol] 3.9 10*3/uL 2.0-7.7 [facility] Work Phone: Neutrophils/100 WBC (Bld) 51.3 % 47-70 [facility] Work Phone: Potassium [Moles/Vol] 4.5 mmol/L 3.5-5.1 [facility] Work Phone: Comment on above: Slight Hemolysis, Re sult may be falsely increased. Protein [Mass/Vol] 6.8 g/dL 6.4-8.2 [facility] Work Phone: Sodium [Moles/Vol] 134 mmol/L 136-145 [facility] Work Phone: WBC (Bld) [#/Vol] 7.6 10*3/uL 4.4-11.0 [facility] Work Phone: Blood erythrocytes count (nu mber/volume)on 07-16-2021 RBC (Bld) [#/Vol] 4.21 10*6/uL 4.2-5.4 [facility] Work Phone: Blood hemoglobin measurement (mass/volume)on 07-16-2021 Hemoglobin (Bld) [Mass/Vol] 13.2 g/dL 12.0-15.0 [facility] Work Phone: Blood lymphocytes/100 leukoc yteson 07-16-2021 Lymphocytes/100 WBC (Bld) 33.9 % 19-41 [facility] Work Phone: Blood monocytes/100 leukocyt eson 07-16-2021 Monocytes/100 WBC (Bld) 10.4 % 0-10 [facility] Work Phone: Blood platelet mean volumeon 07-16-2021 Platelet mean volume (Bld) [Entitic vol] 11.3 fL 6.2-12.0 [facility] Work Phone: Determination of erythrocyte mean corpuscular volume (MCV)on 07-16-2021 MCV (RBC) [Entitic vol] 97.1 fL 81-99 [facility] Work Phone: Erythrocyte sedimentation ra wade 07-16-2021 ESR (Bld) [Velocity] 9 mm/h 0-30 [facility] Work Phone: Hematocrit Auto (Bld) [Volum e fraction]on 07-16-2021 Hematocrit (Bld) [Volume fraction] 40.9 % 37-47 [facility] Work Phone: Laboratory - Chemistry and C hemistry - challengeon 07-16-2021 ALP [Catalytic activity/Vol] 69 U/L 45-117 [facility] Work Phone: ALT [Catalytic activity/Vol] 24 U/L 13-56 [facility] Work Phone: CO2 [Moles/Vol] 27.0 mmol/L 21.0-32.0 [facility] Work Phone: Globulin (S) [Mass/Vol] 4.0 g/dL 2.2-4.2 [facility] Work Phone: Urea nitrogen/Creatinine [Mass ratio] 38.3 mg/mg 10-20 [facility] Work Phone: [phone] Laboratory - Hematology and Cell countson 07-16-2021 Erythrocyte distribution width (RBC) [Entitic vol] 50.8 fL 35.1-43.9 [facility] Work Phone: [phone] Erythrocyte distribution width (RBC) [Ratio] 14.2 % 11.6-14.6 [facility] Work Phone: [phone] Immature granulocytes/100 WBC (Bld) 0.300 % 0.0-0.9 [facility] Work Phone: [phone] Comment on above: IG% - Immature Granu locytes (promyelocytes, myelocytes and metamyelocytes) > 1% indicates that a LEFT SHIFT is Present. MCH (RBC) [Entitic mass] 31.4 pg 27.0-32.0 [facility] Work Phone: [phone] Nucleated RBC/100 WBC (Bld) [Ratio] 0 % 0-5 [facility] Work Phone: [phone] MCHC Auto (RBC) [Mass/Vol]on 07-16-2021 MCHC (RBC) [Mass/Vol] 32.3 g/dL 32-36 [facility] Work Phone: [phone] Panel Informationon 07-16 Estimated GFR (MDRD) Amer 123 mL/min >60 [facility] Work Phone: [phone] Comment on above: GFR Calc Estimated GFR (MDRD) Non-Af Amer 101 mL/min >60 [facility] Work Phone: [phone] Comment on above: Non- GFR Calc Platelets bldon 07-16-2021 Platelets (Bld) [#/Vol] 193 10*3/uL 150-450 [facility] Work Phone: [phone] Serum or plasma C reactive p rotein measurement (mass/volume)on 07-16-2021 CRP [Mass/Vol] 3.15 mg/L 0.0-3.0 [facility] Work Phone: [phone] Comment on above: C-Reactive Protein ( CRP) provides useful information for thediagnosis, therapy and monitoring of inflammatory processesand associated diseases. For the evaluation of Relative Riskfor Cardiovascular Disease, a High Sensitivity CRP (HSCRP)should be ordered. Serum or plasma albumin tammie urement (mass/volume)on 07-16-2021 Albumin [Mass/Vol] 2.8 g/dL 3.2-5.0 [facility] Work Phone: Serum or plasma albumin/glob ulin mass ratioon 07-16-2021 Albumin/Globulin [Mass ratio] 0.7 {ratio} 0.9-2.4 [facility] Work Phone: Serum or plasma calcium tammie urement (mass/volume)on 07-16-2021 Calcium [Mass/Vol] 8.8 mg/dL 8.5-10.1 [facility] Work Phone: Serum or plasma creatinine m easurement (mass/volume)on 07-16-2021 Creatinine [Mass/Vol] 0.63 mg/dL 0.55-1.02 [facility] Work Phone: Comment on above: The validity of the calculated GFR & GFRAA in patients over 70 years has not been determined. Clinical correlation is essential. Serum or plasma urea nitroge n measurement (mass/volume)on 07-16-2021 Urea nitrogen [Mass/Vol] 24 mg/dL 7-18 [facility] Work Phone: Thin prep Papanicolaou smear with manual screeningon 07-16-2021 Thin prep Papanicolaou smear with manual screening 26 U/L 15- [facility] Work Phone: Comment on above: Slight Hemolysis, Re sult may be falsely increased. Thin prep Papanicolaou smear with manual screening 4 5-15 [facility] Work Phone: [phone] Absolute lymphocyte counton 07-09-2021 Lymphocytes Auto (Unsp spec) [#/Vol] 2.60 10*3/uL 0.83-4.51 [facility] Work Phone: Basophil percentageon 2021 Basophils/100 WBC (Bld) 1.1 % 0-1 [facility] Work Phone: Bilirubin [Mass/Vol] 0.30 mg/dL 0.20-1.00 [facility] Work Phone: Comment on above: For patients on eltr ombopag therapy, use of Dim[place] TBIL is not recommended. Chloride [Moles/Vol] 103 mmol/L 98-107 [facility] Work Phone: Eosinophils/100 WBC (Bld) 2.7 % 0-5 [facility] Work Phone: Glucose [Mass/Vol] 78 mg/dL 74-106 [facility] Work Phone: Neutrophils (Bld) [#/Vol] 3.7 10*3/uL 2.0-7.7 [facility] Work Phone: Neutrophils/100 WBC (Bld) 49.9 % 47-70 [facility] Work Phone: Potassium [Moles/Vol] 4.3 mmol/L 3.5-5.1 [facility] Work Phone: Protein [Mass/Vol] 6.9 g/dL 6.4-8.2 [facility] Work Phone: Sodium [Moles/Vol] 138 mmol/L 136-145 [facility] Work Phone: WBC (Bld) [#/Vol] 7.4 10*3/uL 4.4-11.0 [facility] Work Phone: Blood erythrocytes count (nu mber/volume)on 07-09-2021 RBC (Bld) [#/Vol] 4.12 10*6/uL 4.2-5.4 [facility] Work Phone: Blood hemoglobin measurement (mass/volume)on 07-09-2021 Hemoglobin (Bld) [Mass/Vol] 13.3 g/dL 12.0-15.0 [facility] Work Phone: Blood lymphocytes/100 leukoc yteson 02-08-2022 Lymphocytes/100 WBC (Bld) 35.0 % 19-41 [facility] Work Phone: Blood monocytes/100 leukocyt eson 07-09-2021 Monocytes/100 WBC (Bld) 10.9 % 0-10 [facility] Work Phone: Blood platelet mean volumeon 07-09-2021 Platelet mean volume (Bld) [Entitic vol] 11.4 fL 6.2-12.0 [facility] Work Phone: Determination of erythrocyte mean corpuscular volume (MCV)on 07-09-2021 MCV (RBC) [Entitic vol] 96.8 fL 81-99 [facility] Work Phone: Erythrocyte sedimentation ra wade 07-09-2021 ESR (Bld) [Velocity] 6 mm/h 0-30 [facility] Work Phone: Hematocrit Auto (Bld) [Volum e fraction]on 07-09-2021 Hematocrit (Bld) [Volume fraction] 39.9 % 37-47 [facility] Work Phone: Laboratory - Chemistry and C hemistry - challengeon 07-09-2021 ALP [Catalytic activity/Vol] 63 U/L 45-117 [facility] Work Phone: ALT [Catalytic activity/Vol] 19 U/L 13-56 [facility] Work Phone: CO2 [Moles/Vol] 27.0 mmol/L 21.0-32.0 [facility] Work Phone: Globulin (S) [Mass/Vol] 4.1 g/dL 2.2-4.2 [facility] Work Phone: Urea nitrogen/Creatinine [Mass ratio] 33.0 mg/mg 10-20 [facility] Work Phone: Laboratory - Hematology and Cell countson 07-09-2021 Erythrocyte distribution width (RBC) [Entitic vol] 51.5 fL 35.1-43.9 [facility] Work Phone: Erythrocyte distribution width (RBC) [Ratio] 14.3 % 11.6-14.6 [facility] Work Phone: [phone] Immature granulocytes/100 WBC (Bld) 0.400 % 0.0-0.9 [facility] Work Phone: Comment on above: IG% - Immature Granu locytes (promyelocytes, myelocytes and metamyelocytes) > 1% indicates that a LEFT SHIFT is Present. MCH (RBC) [Entitic mass] 32.3 pg 27.0-32.0 [facility] Work Phone: [phone] Nucleated RBC/100 WBC (Bld) [Ratio] 0 % 0-5 [facility] Work Phone: [phone] MCHC Auto (RBC) [Mass/Vol]on 07-09-2021 MCHC (RBC) [Mass/Vol] 33.3 g/dL 32-36 [facility] Work Phone: No Panel Informationon 07-09 Estimated GFR (MDRD) Amer 103 mL/min >60 [facility] Work Phone: Comment on above: GFR Calc Estimated GFR (MDRD) Non-Af Amer 85 mL/min >60 [facility] Work Phone: Comment on above: Non- GFR Calc Platelets bldon 07-09-2021 Platelets (Bld) [#/Vol] 215 10*3/uL 150-450 [facility] Work Phone: [phone] Serum or plasma C reactive p rotein measurement (mass/volume)on 07-09-2021 CRP [Mass/Vol] mg/L 0.0-3.0 [facility] Work Phone: Comment on above: C-Reactive Protein ( CRP) provides useful information for thediagnosis, therapy and monitoring of inflammatory processesand associated diseases. For the evaluation of Relative Riskfor Cardiovascular Disease, a High Sensitivity CRP (HSCRP)should be ordered. Serum or plasma albumin tammie urement (mass/volume)on 07-09-2021 Albumin [Mass/Vol] 2.8 g/dL 3.2-5.0 [facility] Work Phone: [phone] Serum or plasma albumin/glob ulin mass ratioon 07-09-2021 Albumin/Globulin [Mass ratio] 0.7 {ratio} 0.9-2.4 [facility] Work Phone: [phone] Serum or plasma calcium tammie urement (mass/volume)on 07-09-2021 Calcium [Mass/Vol] 8.6 mg/dL 8.5-10.1 [facility] Work Phone: [phone] Serum or plasma creatinine m easurement (mass/volume)on 07-09-2021 Creatinine [Mass/Vol] 0.73 mg/dL 0.55-1.02 [facility] Work Phone: [phone] Comment on above: The validity of the calculated GFR & GFRAA in patients over 70 years has not been determined. Clinical correlation is essential. Serum or plasma urea nitroge n measurement (mass/volume)on 07-09-2021 Urea nitrogen [Mass/Vol] 24 mg/dL 7-18 [facility] Work Phone: [phone] Thin prep Papanicolaou smear with manual screeningon 07-09-2021 Thin prep Papanicolaou smear with manual screening 20 U/L 15-37 [facility] Work Phone: [phone] Thin prep Papanicolaou smear with manual screening 8 5-15 [facility] Work Phone: [phone] Absolute lymphocyte counton 07-02-2021 Lymphocytes Auto (Unsp spec) [#/Vol] 2.06 10*3/uL 0.83-4.51 [facility] Work Phone: [phone] Basophil percentageon 2021 Basophils/100 WBC (Bld) 0.7 % 0-1 [facility] Work Phone: [phone] Bilirubin [Mass/Vol] 0.50 mg/dL 0.20-1.00 [facility] Work Phone: [phone] Comment on above: For patients on eltr ombopag therapy, use of Dimension [place] TBIL is not recommended. Chloride [Moles/Vol] 103 mmol/L 98-107 [facility] Work Phone: Eosinophils/100 WBC (Bld) 1.7 % 0-5 [facility] Work Phone: Glucose [Mass/Vol] 83 mg/dL 74-106 [facility] Work Phone: Neutrophils (Bld) [#/Vol] 5.0 10*3/uL 2.0-7.7 [facility] Work Phone: Neutrophils/100 WBC (Bld) 60.8 % 47-70 [facility] Work Phone: Potassium [Moles/Vol] 4.7 mmol/L 3.5-5.1 [facility] Work Phone: Comment on above: Moderate Hemolysis, Result may be falsely increased. Protein [Mass/Vol] 7.0 g/dL 6.4-8.2 [facility] Work Phone: Sodium [Moles/Vol] 135 mmol/L 136-145 [facility] Work Phone: WBC (Bld) [#/Vol] 8.3 10*3/uL 4.4-11.0 [facility] Work Phone: Blood erythrocytes count (nu mber/volume)on 07-02-2021 RBC (Bld) [#/Vol] 4.11 10*6/uL 4.2-5.4 [facility] Work Phone: Blood hemoglobin measurement (mass/volume)on 07-02-2021 Hemoglobin (Bld) [Mass/Vol] 13.2 g/dL 12.0-15.0 [facility] Work Phone: Blood lymphocytes/100 leukoc yteson 07-02-2021 Lymphocytes/100 WBC (Bld) 24.9 % 19-41 [facility] Work Phone: Blood monocytes/100 leukocyt eson 07-02-2021 Monocytes/100 WBC (Bld) 11.4 % 0-10 [facility] Work Phone: Blood platelet mean volumeon 07-02-2021 Platelet mean volume (Bld) [Entitic vol] 11.0 fL 6.2-12.0 [facility] Work Phone: [phone] Determination of erythrocyte mean corpuscular volume (MCV)on 07-02-2021 MCV (RBC) [Entitic vol] 98.5 fL 81-99 [facility] Work Phone: [phone] Erythrocyte sedimentation ra wade 07-02-2021 ESR (Bld) [Velocity] 7 mm/h 0-30 [facility] Work Phone: [phone] Hematocrit Auto (Bld) [Volum e fraction]on 07-02-2021 Hematocrit (Bld) [Volume fraction] 40.5 % 37-47 [facility] Work Phone: [phone] Laboratory - Chemistry and C hemistry - challengeon 07-02-2021 ALP [Catalytic activity/Vol] 58 U/L 45-117 [facility] Work Phone: [phone] ALT [Catalytic activity/Vol] 21 U/L 13-56 [facility] Work Phone: [phone] CO2 [Moles/Vol] 29.0 mmol/L 21.0-32.0 [facility] Work Phone: [phone] Globulin (S) [Mass/Vol] 4.1 g/dL 2.2-4.2 [facility] Work Phone: [phone] Urea nitrogen/Creatinine [Mass ratio] 31.6 mg/mg 10-20 [facility] Work Phone: [phone] Laboratory - Hematology and Cell countson 07-02-2021 Erythrocyte distribution width (RBC) [Entitic vol] 51.7 fL 35.1-43.9 [facility] Work Phone: [phone] Erythrocyte distribution width (RBC) [Ratio] 14.2 % 11.6-14.6 [facility] Work Phone: [phone] Immature granulocytes/100 WBC (Bld) 0.500 % 0.0-0.9 [facility] Work Phone: [phone] Comment on above: IG% - Immature Granu locytes (promyelocytes, myelocytes and metamyelocytes) > 1% indicates that a LEFT SHIFT is Present. MCH (RBC) [Entitic mass] 32.1 pg 27.0-32.0 [facility] Work Phone: Nucleated RBC/100 WBC (Bld) [Ratio] 0 % 0-5 [facility] Work Phone: [phone] MCHC Auto (RBC) [Mass/Vol]on 07-02-2021 MCHC (RBC) [Mass/Vol] 32.6 g/dL 32-36 [facility] Work Phone: No Panel Informationon 07-02 Estimated GFR (MDRD) Amer 115 mL/min >60 [facility] Work Phone: Comment on above: GFR Calc Estimated GFR (MDRD) Non-Af Amer 95 mL/min >60 [facility] Work Phone: Comment on above: Non- GFR Calc Platelets bldon 07-02-2021 Platelets (Bld) [#/Vol] 211 10*3/uL 150-450 [facility] Work Phone: Serum or plasma C reactive p rotein measurement (mass/volume)on 07-02-2021 CRP [Mass/Vol] mg/L 0.0-3.0 [facility] Work Phone: Comment on above: C-Reactive Protein ( CRP) provides useful information for thediagnosis, therapy and monitoring of inflammatory processesand associated diseases. For the evaluation of Relative Riskfor Cardiovascular Disease, a High Sensitivity CRP (HSCRP)should be ordered. Serum or plasma albumin tammie urement (mass/volume)on 07-02-2021 Albumin [Mass/Vol] 2.9 g/dL 3.2-5.0 [facility] Work Phone: [phone] Serum or plasma albumin/glob ulin mass ratioon 07-02-2021 Albumin/Globulin [Mass ratio] 0.7 {ratio} 0.9-2.4 [facility] Work Phone: [phone] Serum or plasma calcium tammie urement (mass/volume)on 07-02-2021 Calcium [Mass/Vol] 8.4 mg/dL 8.5-10.1 [facility] Work Phone: Serum or plasma creatinine m easurement (mass/volume)on 07-02-2021 Creatinine [Mass/Vol] 0.66 mg/dL 0.55-1.02 [facility] Work Phone: Comment on above: The validity of the calculated GFR & GFRAA in patients over 70 years has not been determined. Clinical correlation is essential. Serum or plasma urea nitroge n measurement (mass/volume)on 07-02-2021 Urea nitrogen [Mass/Vol] 21 mg/dL 7-18 [facility] Work Phone: Thin prep Papanicolaou smear with manual screeningon 07-02-2021 Thin prep Papanicolaou smear with manual screening 26 U/L 15-37 [facility] Work Phone: Comment on above: Moderate Hemolysis, Result may be falsely increased. Thin prep Papanicolaou smear with manual screening 3 5-15 [facility] Work Phone: Absolute lymphocyte counton 06-25-2021 Lymphocytes Auto (Unsp spec) [#/Vol] 3.59 10*3/uL 0.83-4.51 [facility] Work Phone: Basophil percentageon 2021 Basophils/100 WBC (Bld) 1.2 % 0-1 [facility] Work Phone: [phone] Bilirubin [Mass/Vol] 0.40 mg/dL 0.20-1.00 [facility] Work Phone: [phone] Comment on above: For patients on eltr ombopag therapy, use of [place] TBIL is not recommended. Chloride [Moles/Vol] 105 mmol/L 98-107 [facility] Work Phone: Eosinophils/100 WBC (Bld) 2.0 % 0-5 [facility] Work Phone: [phone] Glucose [Mass/Vol] 82 mg/dL 74-106 [facility] Work Phone: Neutrophils (Bld) [#/Vol] 4.0 10*3/uL 2.0-7.7 [facility] Work Phone: Neutrophils/100 WBC (Bld) 47.0 % 47-70 [facility] Work Phone: Potassium [Moles/Vol] 4.7 mmol/L 3.5-5.[address] [facility] Work Phone: Protein [Mass/Vol] 7.4 g/dL 6.4-8.2 [facility] Work Phone: Sodium [Moles/Vol] 138 mmol/L 136-145 [facility] Work Phone: WBC (Bld) [#/Vol] 8.6 10*3/uL 4.4-11.0 [facility] Work Phone: Blood erythrocytes count (nu mber/volume)on 06-25-2021 RBC (Bld) [#/Vol] 4.57 10*6/uL 4.2-5.4 [facility] Work [facility]: Blood hemoglobin measurement (mass/volume)on 06-25-2021 Hemoglobin (Bld) [Mass/Vol] 13.8 g/dL 12.0-15.0 [facility] Work Phone: Blood lymphocytes/100 leukoc yteson 06-25-2021 Lymphocytes/100 WBC (Bld) 42.0 % 19-41 [facility] Work Phone: Blood monocytes/100 leukocyt eson 06-25-2021 Monocytes/100 WBC (Bld) 7.6 % 0-10 [facility] Work Phone: Blood platelet mean volumeon 06-25-2021 Platelet mean volume (Bld) [Entitic vol] 11.4 fL 6.2-12.0 [facility] Work Phone: Determination of erythrocyte mean corpuscular volume (MCV)on 06-25-2021 MCV (RBC) [Entitic vol] 96.1 fL 81-99 [facility] Work Phone: [phone] Erythrocyte sedimentation ra wade 06-25-2021 ESR (Bld) [Velocity] 18 mm/h 0-30 [facility] Work Phone: [phone] Hematocrit Auto (Bld) [Volum e fraction]on 06-25-2021 Hematocrit (Bld) [Volume fraction] 43.9 % 37-47 [facility] Work Phone: [phone] Laboratory - Chemistry and C hemistry - challengeon 06-25-2021 ALP [Catalytic activity/Vol] 72 U/L 45-117 [facility] Work Phone: [phone] ALT [Catalytic activity/Vol] 19 U/L 13-56 [facility] Work Phone: [phone] CO2 [Moles/Vol] 26.0 mmol/L 21.0-32.0 [facility] Work Phone: [phone] Globulin (S) [Mass/Vol] 4.3 g/dL 2.2-4.2 [facility] Work Phone: [phone] Urea nitrogen/Creatinine [Mass ratio] 35.0 mg/mg 10-20 [facility] Work Phone: [phone] Laboratory - Hematology and Cell countson 06-25-2021 Erythrocyte distribution width (RBC) [Entitic vol] 51.1 fL 35.1-43.9 [facility] Work Phone: [phone] Erythrocyte distribution width (RBC) [Ratio] 14.4 % 11.6-14.6 [facility] Work Phone: [phone] Immature granulocytes/100 WBC (Bld) 0.200 % 0.0-0.9 [facility] Work Phone: [phone] Comment on above: IG% - Immature Granu locytes (promyelocytes, myelocytes and metamyelocytes) > 1% indicates that a LEFT SHIFT is Present. MCH (RBC) [Entitic mass] 30.2 pg 27.0-32.0 [facility] Work Phone: Nucleated RBC/100 WBC (Bld) [Ratio] 0 % 0-5 [facility] Work Phone: MCHC Auto (RBC) [Mass/Vol]on 06-25-2021 MCHC (RBC) [Mass/Vol] 31.4 g/dL 32-36 [facility] Work Phone: No Panel Informationon 06-25 Estimated GFR (MDRD) Amer 122 mL/min >60 [facility] Work Phone: Comment on above: GFR Calc Estimated GFR (MDRD) Non-Af Amer 101 mL/min >60 [facility] Work Phone: Comment on above: Non- GFR Calc Platelets bldon 06-25-2021 Platelets (Bld) [#/Vol] 244 10*3/uL 150-450 [facility] Work Phone: Serum or plasma C reactive p rotein measurement (mass/volume)on 06-25-2021 CRP [Mass/Vol] 8.29 mg/L 0.0-3.0 [facility] Work Phone: Comment on above: C-Reactive Protein ( CRP) provides useful information for thediagnosis, therapy and monitoring of inflammatory processesand associated diseases. For the evaluation of Relative Riskfor Cardiovascular Disease, a High Sensitivity CRP (HSCRP)should be ordered. Serum or plasma albumin tammie urement (mass/volume)on 06-25-2021 Albumin [Mass/Vol] 3.1 g/dL 3.2-5.0 [facility] Work Phone: [phone] Serum or plasma albumin/glob ulin mass ratioon 06-25-2021 Albumin/Globulin [Mass ratio] 0.7 {ratio} 0.9-2.4 [facility] Work Phone: [phone] Serum or plasma calcium tammie urement (mass/volume)on 06-25-2021 Calcium [Mass/Vol] 9.0 mg/dL 8.5-10.1 [facility] Work Phone: [phone] Serum or plasma creatinine m easurement (mass/volume)on 06-25-2021 Creatinine [Mass/Vol] 0.63 mg/dL 0.55-1.02 [facility] Work Phone: Comment on above: The validity of the calculated GFR & GFRAA in patients over 70 years has not been determined. Clinical correlation is essential. Serum or plasma urea nitroge n measurement (mass/volume)on 06-25-2021 Urea nitrogen [Mass/Vol] 22 mg/dL 7-18 [facility] Work Phone: Thin prep Papanicolaou smear with manual screeningon 06-25-2021 Thin prep Papanicolaou smear with manual screening 17 U/L 15-37 [facility] Work Phone: Thin prep Papanicolaou smear with manual screening 7 5-15 [facility] Work Phone: Absolute lymphocyte counton 06-18-2021 Lymphocytes Auto (Unsp spec) [#/Vol] 2.33 10*3/uL 0.83-4.51 [facility] Work Phone: Basophil percentageon 2021 Basophils/100 WBC (Bld) 0.8 % 0-1 [facility] Work Phone: Bilirubin [Mass/Vol] 0.30 mg/dL 0.20-1.00 [facility] Work Phone: Comment on above: For patients on eltr ombopag therapy, use of [place] TBIL is not recommended. Chloride [Moles/Vol] 100 mmol/L 98-107 [facility] Work Phone: Eosinophils/100 WBC (Bld) 1.8 % 0-5 [facility] Work Phone: Glucose [Mass/Vol] 81 mg/dL 74-106 [facility] Work Phone: Neutrophils (Bld) [#/Vol] 4.6 10*3/uL 2.0-7.7 [facility] Work Phone: Neutrophils/100 WBC (Bld) 58.4 % 47-70 [facility] Work Phone: Potassium [Moles/Vol] 4.5 mmol/L 3.5-5.[address] [facility] Work Phone: [phone] Protein [Mass/Vol] 7.4 g/dL 6.4-8.2 [facility] Work Phone: [phone] Sodium [Moles/Vol] 135 mmol/L 136-145 [facility] Work Phone: [phone] WBC (Bld) [#/Vol] 7.9 10*3/uL 4.4-11.0 [facility] Work Phone: [phone] Blood erythrocytes count (nu mber/volume)on 06-18-2021 RBC (Bld) [#/Vol] 4.36 10*6/uL 4.2-5.4 [facility] Work Phone: [phone] Blood hemoglobin measurement (mass/volume)on 06-18-2021 Hemoglobin (Bld) [Mass/Vol] 13.6 g/dL 12.0-15.0 [facility] Work Phone: [phone] Blood lymphocytes/100 leukoc yteson 06-18-2021 Lymphocytes/100 WBC (Bld) 29.6 % 19-41 [facility] Work Phone: [phone] Blood monocytes/100 leukocyt eson 06-18-2021 Monocytes/100 WBC (Bld) 9.0 % 0-10 [facility] Work Phone: [phone] Blood platelet mean volumeon 06-18-2021 Platelet mean volume (Bld) [Entitic vol] 11.1 fL 6.2-12.0 [facility] Work Phone: [phone] Determination of erythrocyte mean corpuscular volume (MCV)on 06-18-2021 MCV (RBC) [Entitic vol] 95.9 fL 81-99 [facility] Work Phone: [phone] Erythrocyte sedimentation ra wade 06-18-2021 ESR (Bld) [Velocity] 6 mm/h 0-30 [facility] Work Phone: [phone] Hematocrit Auto (Bld) [Volum e fraction]on 06-18-2021 Hematocrit (Bld) [Volume fraction] 41.8 % 37-47 [facility] Work Phone: [phone] Laboratory - Chemistry and C hemistry - challengeon 06-18-2021 ALP [Catalytic activity/Vol] 66 U/L 45-117 [facility] Work Phone: [phone] ALT [Catalytic activity/Vol] 24 U/L 13-56 [facility] Work Phone: [phone] CO2 [Moles/Vol] 28.0 mmol/L 21.0-32.0 [facility] Work Phone: [phone] Globulin (S) [Mass/Vol] 4.3 g/dL 2.2-4.2 [facility] Work Phone: [phone] Urea nitrogen/Creatinine [Mass ratio] 29.9 mg/mg 10-20 [facility] Work Phone: [phone] Laboratory - Hematology and Cell countson 06-18-2021 Erythrocyte distribution width (RBC) [Entitic vol] 51.1 fL 35.1-43.9 [facility] Work Phone: [phone] Erythrocyte distribution width (RBC) [Ratio] 14.4 % 11.6-14.6 [facility] Work Phone: [phone] Immature granulocytes/100 WBC (Bld) 0.400 % 0.0-0.9 [facility] Work Phone: [phone] Comment on above: IG% - Immature Granu locytes (promyelocytes, myelocytes and metamyelocytes) > 1% indicates that a LEFT SHIFT is Present. MCH (RBC) [Entitic mass] 31.2 pg 27.0-32.0 [facility] Work Phone: [phone] Nucleated RBC/100 WBC (Bld) [Ratio] 0 % 0-5 [facility] Work Phone: [phone] MCHC Auto (RBC) [Mass/Vol]on 06-18-2021 MCHC (RBC) [Mass/Vol] 32.5 g/dL 32-36 [facility] Work Phone: [phone] Panel Informationon 06-18 Estimated GFR (MDRD) Amer 114 mL/min >60 [facility] Work Phone: Comment on above: GFR Calc Estimated GFR (MDRD) Non-Af Amer 94 mL/min >60 [facility] Work Phone: [phone] Comment on above: Non- GFR Calc Platelets bldon 06-18-2021 Platelets (Bld) [#/Vol] 195 10*3/uL 150-450 [facility] Work Phone: Serum or plasma C reactive p rotein measurement (mass/volume)on 06-18-2021 CRP [Mass/Vol] 4.20 mg/L 0.0-3.0 [facility] Work Phone: Comment on above: C-Reactive Protein ( CRP) provides useful information for thediagnosis, therapy and monitoring of inflammatory processesand associated diseases. For the evaluation of Relative Riskfor Cardiovascular Disease, a High Sensitivity CRP (HSCRP)should be ordered. Serum or plasma albumin tammie urement (mass/volume)on 06-18-2021 Albumin [Mass/Vol] 3.1 g/dL 3.2-5.0 [facility] Work Phone: Serum or plasma albumin/glob ulin mass ratioon 06-18-2021 Albumin/Globulin [Mass ratio] 0.7 {ratio} 0.9-2.4 [facility] Work Phone: Serum or plasma calcium tammie urement (mass/volume)on 06-18-2021 Calcium [Mass/Vol] 8.6 mg/dL 8.5-10.1 [facility] Work Phone: [phone] Serum or plasma creatinine m easurement (mass/volume)on 06-18-2021 Creatinine [Mass/Vol] 0.67 mg/dL 0.55-1.02 [facility] Work Phone: Comment on above: The validity of the calculated GFR & GFRAA in patients over 70 years has not been determined. Clinical correlation is essential. Serum or plasma urea nitroge n measurement (mass/volume)on 06-18-2021 Urea nitrogen [Mass/Vol] 20 mg/dL 12-16 [facility] Work Phone: Thin prep Papanicolaou smear with manual screeningon 06-18-2021 Thin prep Papanicolaou smear with manual screening 22 U/L 15-37 [facility] Work Phone: Thin prep Papanicolaou smear with manual screening 7 5-15 [facility] Work Phone: Absolute lymphocyte counton 06-11-2021 Lymphocytes Auto (Unsp spec) [#/Vol] 2.02 10*3/uL 0.83-4.51 [facility] Work Phone: Basophil percentageon 2021 Basophils/100 WBC (Bld) 0.8 % 0-1 [facility] Work Phone: Bilirubin [Mass/Vol] 0.40 mg/dL 0.20-1.00 [facility] Work Phone: Comment on above: For patients on eltr ombopag therapy, use of [place] TBIL is not recommended. Chloride [Moles/Vol] 101 mmol/L 98-107 [facility] Work Phone: Eosinophils/100 WBC (Bld) 2.0 % 0-5 [facility] Work Phone: Glucose [Mass/Vol] 84 mg/dL 74-106 [facility] Work Phone: Comment on above: Please note revised GLUCOSE reference range effective 2017. Neutrophils (Bld) [#/Vol] 4.5 10*3/uL 2.0-7.7 [facility] Work Phone: Neutrophils/100 WBC (Bld) 58.4 % 47-70 [facility] Work Phone: Potassium [Moles/Vol] 4.4 mmol/L 3.5-5.1 [facility] Work Phone: Protein [Mass/Vol] 6.9 g/dL 6.4-8.2 [facility] Work Phone: Sodium [Moles/Vol] 137 mmol/L 136-145 [facility] Work Phone: WBC (Bld) [#/Vol] 7.6 10*3/uL 4.4-11.0 [facility] Work Phone: Blood erythrocytes count (nu mber/volume)on 06-11-2021 RBC (Bld) [#/Vol] 4.08 10*6/uL 4.2-5.4 [facility] Work Phone: Blood hemoglobin measurement (mass/volume)on 06-11-2021 Hemoglobin (Bld) [Mass/Vol] 12.9 g/dL 12.0-15.0 [facility] Work Phone: Blood lymphocytes/100 leukoc yteson 06-11-2021 Lymphocytes/100 WBC (Bld) 26.4 % 19-41 [facility] Work Phone: Blood monocytes/100 leukocyt eson 06-11-2021 Monocytes/100 WBC (Bld) 12.0 % 0-10 [facility] Work Phone: Blood platelet mean volumeon 06-11-2021 Platelet mean volume (Bld) [Entitic vol] 11.1 fL 6.2-12.0 [facility] Work Phone: Determination of erythrocyte mean corpuscular volume (MCV)on 06-11-2021 MCV (RBC) [Entitic vol] 95.6 fL 81-99 [facility] Work Phone: Erythrocyte sedimentation ra wade 06-11-2021 ESR (Bld) [Velocity] 12 mm/h 0-30 [facility] Work Phone: Hematocrit Auto (Bld) [Volum e fraction]on 06-11-2021 Hematocrit (Bld) [Volume fraction] 39.0 % 37-47 [facility] Work Phone: Laboratory - Chemistry and C hemistry - challengeon 06-11-2021 ALP [Catalytic activity/Vol] 61 U/L 45-117 [facility] Work Phone: ALT [Catalytic activity/Vol] 23 U/L 13-56 [facility] Work Phone: [phone] CO2 [Moles/Vol] 30.0 mmol/L 21.0-32.0 [facility] Work Phone: [phone] Globulin (S) [Mass/Vol] 4.2 g/dL 2.2-4.2 [facility] Work Phone: [phone] Urea nitrogen/Creatinine [Mass ratio] 28.7 mg/mg 10-20 [facility] Work Phone: [phone] Laboratory - Hematology and Cell countson 06-11-2021 Erythrocyte distribution width (RBC) [Entitic vol] 51.7 fL 35.1-43.9 [facility] Work Phone: [phone] Erythrocyte distribution width (RBC) [Ratio] 14.8 % 11.6-14.6 [facility] Work Phone: [phone] Immature granulocytes/100 WBC (Bld) 0.400 % 0.0-0.9 [facility] Work Phone: [phone] Comment on above: IG% - Immature Granu locytes (promyelocytes, myelocytes and metamyelocytes) > 1% indicates that a LEFT SHIFT is Present. MCH (RBC) [Entitic mass] 31.6 pg 27.0-32.0 [facility] Work Phone: [phone] Nucleated RBC/100 WBC (Bld) [Ratio] 0 % 0-5 [facility] Work Phone: [phone] MCHC Auto (RBC) [Mass/Vol]on 06-11-2021 MCHC (RBC) [Mass/Vol] 33.1 g/dL 32-36 [facility] Work Phone: [phone] No Panel Informationon 06-11 Estimated GFR (MDRD) Amer 123 mL/min >60 [facility] Work Phone: [phone] Comment on above: GFR Calc Estimated GFR (MDRD) Non-Af Amer 101 mL/min >60 [facility] Work Phone: [phone] Comment on above: Non- GFR Calc Platelets bldon 06-11-2021 Platelets (Bld) [#/Vol] 194 10*3/uL 150-450 [facility] Work Phone: Serum or plasma C reactive p rotein measurement (mass/volume)on 06-11-2021 CRP [Mass/Vol] 3.14 mg/L 0.0-3.0 [facility] Work Phone: Comment on above: C-Reactive Protein ( CRP) provides useful information for thediagnosis, therapy and monitoring of inflammatory processesand associated diseases. For the evaluation of Relative Riskfor Cardiovascular Disease, a High Sensitivity CRP (HSCRP)should be ordered. Serum or plasma albumin tammie urement (mass/volume)on 06-11-2021 Albumin [Mass/Vol] 2.7 g/dL 3.2-5.0 [facility] Work Phone: Serum or plasma albumin/glob ulin mass ratioon 06-11-2021 Albumin/Globulin [Mass ratio] 0.6 {ratio} 0.9-2.4 [facility] Work Phone: Serum or plasma calcium tammie urement (mass/volume)on 06-11-2021 Calcium [Mass/Vol] 8.5 mg/dL 8.5-10.1 [facility] Work Phone: Serum or plasma creatinine m easurement (mass/volume)on 06-11-2021 Creatinine [Mass/Vol] 0.63 mg/dL 0.55-1.02 [facility] Work Phone: Comment on above: The validity of the calculated GFR & GFRAA in patients over 70 years has not been determined. Clinical correlation is essential. Serum or plasma urea nitroge n measurement (mass/volume)on 06-11-2021 Urea nitrogen [Mass/Vol] 18 mg/dL 7-18 [facility] Work Phone: Thin prep Papanicolaou smear with manual screeningon 06-11-2021 Thin prep Papanicolaou smear with manual screening 17 U/L 15-37 [facility] Work Phone: Thin prep Papanicolaou smear with manual screening 6 5-15 [facility] Work Phone: Absolute lymphocyte counton 06-04-2021 Lymphocytes Auto (Unsp spec) [#/Vol] 3.89 10*3/uL 0.83-4.51 [facility] Work Phone: Basophil percentageon 2021 Basophils/100 WBC (Bld) 0.9 % 0-1 [facility] Work Phone: Bilirubin [Mass/Vol] 0.30 mg/dL 0.20-1.00 [facility] Work Phone: Comment on above: For patients on eltr ombopag therapy, use of [place] TBIL is not recommended. Chloride [Moles/Vol] 102 mmol/L 98-107 [facility] Work Phone: Eosinophils/100 WBC (Bld) 2.1 % 0-5 [facility] Work Phone: Glucose [Mass/Vol] 97 mg/dL 74-106 [facility] Work Phone: Comment on above: Please note revised GLUCOSE reference range effective 2017. Neutrophils (Bld) [#/Vol] 4.9 10*3/uL 2.0-7.7 [facility] Work Phone: Neutrophils/100 WBC (Bld) 50.4 % 47-70 [facility] Work Phone: Potassium [Moles/Vol] 4.8 mmol/L 3.5-5.1 [facility] Work Phone: Comment on above: Slight Hemolysis, Re sult may be falsely increased. Protein [Mass/Vol] 7.8 g/dL 6.4-8.2 [facility] Work Phone: Sodium [Moles/Vol] 138 mmol/L 136-145 [facility] Work Phone: WBC (Bld) [#/Vol] 9.8 10*3/uL 4.4-11.0 [facility] Work Phone: Blood erythrocytes count (nu mber/volume)on 06-04-2021 RBC (Bld) [#/Vol] 4.45 10*6/uL 4.2-5.4 [facility] Work Phone: Blood hemoglobin measurement (mass/volume)on 06-04-2021 Hemoglobin (Bld) [Mass/Vol] 13.5 g/dL 12.0-15.0 [facility] Work Phone: Blood lymphocytes/100 leukoc yteson 06-04-2021 Lymphocytes/100 WBC (Bld) 39.6 % 19-41 [facility] Work Phone: [phone] Blood monocytes/100 leukocyt eson 06-04-2021 Monocytes/100 WBC (Bld) 6.6 % 0-10 [facility] Work Phone: Blood platelet mean volumeon 06-04-2021 Platelet mean volume (Bld) [Entitic vol] 11.0 fL 6.2-12.0 [facility] Work Phone: Determination of erythrocyte mean corpuscular volume (MCV)on 06-04-2021 MCV (RBC) [Entitic vol] 95.7 fL 81-99 [facility] Work Phone: Erythrocyte sedimentation ra wade 06-04-2021 ESR (Bld) [Velocity] 12 mm/h 0-30 [facility] Work Phone: [phone] Hematocrit Auto (Bld) [Volum e fraction]on 06-04-2021 Hematocrit (Bld) [Volume fraction] 42.6 % 37-47 [facility] Work Phone: Laboratory - Chemistry and C hemistry - challengeon 06-04-2021 ALP [Catalytic activity/Vol] 71 U/L 45-117 [facility] Work Phone: ALT [Catalytic activity/Vol] 27 U/L 13-56 [facility] Work Phone: [phone] CO2 [Moles/Vol] 27.0 mmol/L 21.0-32.0 [facility] Work Phone: Globulin (S) [Mass/Vol] 4.7 g/dL 2.2-4.2 [facility] Work Phone: [phone] Urea nitrogen/Creatinine [Mass ratio] 31.2 mg/mg 10-20 [facility] Work Phone: [phone] Laboratory - Hematology and Cell countson 06-04-2021 Erythrocyte distribution width (RBC) [Entitic vol] 52.3 fL 35.1-43.9 [facility] Work Phone: [phone] Erythrocyte distribution width (RBC) [Ratio] 14.7 % 11.6-14.6 [facility] Work Phone: [phone] Immature granulocytes/100 WBC (Bld) 0.400 % 0.0-0.9 [facility] Work Phone: [phone] Comment on above: IG% - Immature Granu locytes (promyelocytes, myelocytes and metamyelocytes) > 1% indicates that a LEFT SHIFT is Present. MCH (RBC) [Entitic mass] 30.3 pg 27.0-32.0 [facility] Work Phone: [phone] Nucleated RBC/100 WBC (Bld) [Ratio] 0 % 0-5 [facility] Work Phone: [phone] MCHC Auto (RBC) [Mass/Vol]on 06-04-2021 MCHC (RBC) [Mass/Vol] 31.7 g/dL 32-36 [facility] Work Phone: [phone] No Panel Informationon 06-04 Estimated GFR (MDRD) Amer 107 mL/min >60 [facility] Work Phone: [phone] Comment on above: GFR Calc Estimated GFR (MDRD) Non-Af Amer 88 mL/min >60 [facility] Work Phone: [phone] Comment on above: Non- GFR Calc Platelets bldon 06-04-2021 Platelets (Bld) [#/Vol] 279 10*3/uL 150-450 [facility] Work Phone: [phone] Serum or plasma C reactive p rotein measurement (mass/volume)on 01-04-2022 CRP [Mass/Vol] 3.79 mg/L 0.0-3.0 [facility] Work Phone: Comment on above: C-Reactive Protein ( CRP) provides useful information for thediagnosis, therapy and monitoring of inflammatory processesand associated diseases. For the evaluation of Relative Riskfor Cardiovascular Disease, a High Sensitivity CRP (HSCRP)should be ordered. Serum or plasma albumin tammie urement (mass/volume)on 06-04-2021 Albumin [Mass/Vol] 3.1 g/dL 3.2-5.0 [facility] Work Phone: Serum or plasma albumin/glob ulin mass ratioon 06-04-2021 Albumin/Globulin [Mass ratio] 0.7 {ratio} 0.9-2.4 [facility] Work Phone: Serum or plasma calcium tammie urement (mass/volume)on 06-04-2021 Calcium [Mass/Vol] 9.0 mg/dL 8.5-10.1 [facility] Work Phone: Serum or plasma creatinine m easurement (mass/volume)on 06-04-2021 Creatinine [Mass/Vol] 0.71 mg/dL 0.55-1.02 [facility] Work Phone: Comment on above: The validity of the calculated GFR & GFRAA in patients over 70 years has not been determined. Clinical correlation is essential. Serum or plasma urea nitroge n measurement (mass/volume)on 06-04-2021 Urea nitrogen [Mass/Vol] 22 mg/dL 7-18 [facility] Work Phone: Thin prep Papanicolaou smear with manual screeningon 06-04-2021 Thin prep Papanicolaou smear with manual screening 22 U/L 15-37 [facility] Work Phone: Comment on above: Slight Hemolysis, Re sult may be falsely increased. Thin prep Papanicolaou smear with manual screening 9 5-15 [facility] Work Phone: Absolute lymphocyte counton 05-28-2021 Lymphocytes Auto (Unsp spec) [#/Vol] 2.83 10*3/uL 0.83-4.51 [facility] Work Phone: Basophil percentageon 2020 Bilirubin [Mass/Vol] 0.30 mg/dL 0.20-1.00 [facility] Work Phone: Comment on above: For patients on eltr ombopag therapy, use of Dimension [place] TBIL is not recommended. Chloride [Moles/Vol] 104 mmol/L 98-107 [facility] Work Phone: Eosinophils/100 WBC (Bld) 2.0 % 0-5 [facility] Work Phone: Glucose [Mass/Vol] 85 mg/dL 74-106 [facility] Work Phone: Comment on above: Please note revised GLUCOSE reference range effective 2017. Neutrophils (Bld) [#/Vol] 4.9 10*3/uL 2.0-7.7 [facility] Work Phone: Potassium [Moles/Vol] 4.3 mmol/L 3.5-5.1 [facility] Work Phone: [phone] Protein [Mass/Vol] 7.2 g/dL 6.4-8.2 [facility] Work Phone: Sodium [Moles/Vol] 137 mmol/L 136-145 [facility] Work Phone: WBC (Bld) [#/Vol] 8.9 10*3/uL 4.4-11.0 [facility] Work Phone: Blood erythrocytes count (nu mber/volume)on 05-28-2021 RBC (Bld) [#/Vol] 4.29 10*6/uL 4.2-5.4 [facility] Work Phone: Blood hemoglobin measurement (mass/volume)on 05-28-2021 Hemoglobin (Bld) [Mass/Vol] 13.3 g/dL 12.0-15.0 [facility] Work Phone: Blood lymphocytes/100 leukoc yteson 05-28-2021 Lymphocytes/100 WBC (Bld) 31.9 % 19-41 [facility] Work Phone: Blood monocytes/100 leukocyt eson 05-28-2021 Monocytes/100 WBC (Bld) 9.5 % 0-10 [facility] Work Phone: Blood platelet mean volumeon 05-28-2021 Platelet mean volume (Bld) [Entitic vol] 10.6 fL 6.2-12.0 [facility] Work Phone: Determination of erythrocyte mean corpuscular volume (MCV)on 05-28-2021 MCV (RBC) [Entitic vol] 93.2 fL 81-99 [facility] Work Phone: Erythrocyte sedimentation ra wade 05-28-2021 ESR (Bld) [Velocity] 15 mm/h 0-30 [facility] Work Phone: Hematocrit Auto (Bld) [Volum e fraction]on 05-28-2021 Hematocrit (Bld) [Volume fraction] 40.0 % 37-47 [facility] Work Phone: Laboratory - Chemistry and C hemistry - challengeon 05-28-2021 ALP [Catalytic activity/Vol] 75 U/L 45-117 [facility] Work Phone: ALT [Catalytic activity/Vol] 24 U/L 13-56 [facility] Work Phone: CO2 [Moles/Vol] 26.0 mmol/L 21.0-32.0 [facility] Work Phone: Globulin (S) [Mass/Vol] 4.4 g/dL 2.2-4.2 [facility] Work Phone: Urea nitrogen/Creatinine [Mass ratio] 36.5 mg/mg 10-20 [facility] Work Phone: Laboratory - Hematology and Cell countson 05-28-2021 Basophils/100 WBC (Unsp spec) 0.9 % 0-1 [facility] Work Phone: Erythrocyte distribution width (RBC) [Entitic vol] 51.4 fL 35.1-43.9 [facility] Work Phone: Erythrocyte distribution width (RBC) [Ratio] 14.8 % 11.6-14.6 [facility] Work Phone: [phone] Immature granulocytes/100 WBC (Bld) 0.300 % 0.0-0.9 [facility] Work Phone: [phone] Comment on above: IG% - Immature Granu locytes (promyelocytes, myelocytes and metamyelocytes) > 1% indicates that a LEFT SHIFT is Present. MCH (RBC) [Entitic mass] 31.0 pg 27.0-32.0 [facility] Work Phone: Neutrophils/100 WBC (Bld) 55.4 % 47-70 [facility] Work Phone: [phone] Nucleated RBC/100 WBC (Bld) [Ratio] 0 % 0-5 [facility] Work Phone: [phone] MCHC Auto (RBC) [Mass/Vol]on 05-28-2021 MCHC (RBC) [Mass/Vol] 33.3 g/dL 32-36 [facility] Work Phone: No Panel Informationon 05-28 Estimated GFR (MDRD) Amer 116 mL/min >60 [facility] Work Phone: Comment on above: GFR Calc Estimated GFR (MDRD) Non-Af Amer 96 mL/min >60 [facility] Work Phone: [phone] Comment on above: Non- GFR Calc Platelets bldon 05-28-2021 Platelets (Bld) [#/Vol] 221 10*3/uL 150-450 [facility] Work Phone: [phone] Serum or plasma C reactive p rotein measurement (mass/volume)on 05-28-2021 CRP [Mass/Vol] 4.87 mg/L 0.0-3.0 [facility] Work Phone: [phone] Comment on above: C-Reactive Protein ( CRP) provides useful information for thediagnosis, therapy and monitoring of inflammatory processesand associated diseases. For the evaluation of Relative Riskfor Cardiovascular Disease, a High Sensitivity CRP (HSCRP)should be ordered. Serum or plasma albumin tammie urement (mass/volume)on 05-28-2021 Albumin [Mass/Vol] 2.8 g/dL 3.2-5.0 [facility] Work Phone: Serum or plasma albumin/glob ulin mass ratioon 05-28-2021 Albumin/Globulin [Mass ratio] 0.6 {ratio} 0.9-2.4 [facility] Work Phone: Serum or plasma calcium tammie urement (mass/volume)on 05-28-2021 Calcium [Mass/Vol] 8.9 mg/dL 8.5-10.1 [facility] Work Phone: Serum or plasma creatinine m easurement (mass/volume)on 05-28-2021 Creatinine [Mass/Vol] 0.66 mg/dL 0.55-1.02 [facility] Work Phone: Comment on above: The validity of the calculated GFR & GFRAA in patients over 70 years has not been determined. Clinical correlation is essential. Serum or plasma urea nitroge n measurement (mass/volume)on 05-28-2021 Urea nitrogen [Mass/Vol] 24 mg/dL 7-18 [facility] Work Phone: Thin prep Papanicolaou smear with manual screeningon 05-28-2021 Thin prep Papanicolaou smear with manual screening 22 U/L 15-37 [facility] Work Phone: Thin prep Papanicolaou smear with manual screening 7 5-15 [facility] Work Phone: CNPM[facility] CHARLIE [facility]GUYEN ([id number]) 1955 F Date Time Provider Department 02/28/21 KELVIN ESPINO [facility] During your visit today, we recorded the following information about you: Kelvin Espino MD 02/28/2021 1:54 PM Addendum Call from [facility] ([facility] from [facility]). Pt has developed a faint rash on her face and neck. No itching. She has been on doxycycline supression since 02/01/21. Pt spends lots of time outside smoking. Rash is not on chest, abdomen, back or extremities. I am highly suspicious this is photosensitivity from doxycycline and being in sun. Discussed wearing a wide brimmed hat with her nurse when she goes outside. If rash should spread they will call back. Allergies As of Date: 02/28/2021 Noted Allergy Reaction NSAIDS (NON-STEROIDAL ANTI-INFLAM* 7 8 - GI Upset GABAPENTIN 10/07/2018 8 - GI Upset MACROBID (NITROFURANTOIN MONOHYD/*02/13/2016 4 - Hives TRAMADOL 01/22/2017 15 - Contraindication-Medi mike Pierre* Comments: Drug interaction with amitriptyline - told not to take due to increased seizure risk NORCO (HYDROCODONE-ACETAMIN OPHEN) 08/14/2016 8 - GI Upset Comments: Didn't do anything for her pain Date Reviewed: 01/08/2021 Reviewed by: Klaudia Winchester RN - Fully Assessed Reason for Visit: Patient Question [6917] Prescriptions as of 02/28/2021 - oxyCODONE-acetaminoph en (PERCOCET) 5-325 mg tablet Take 1 tablet by mouth four times daily as needed for pain. - pregabalin (LYRICA) 100 mg capsule Take 1 capsule by mouth twice daily for 30 days. - metoprolol tartrate, short acting, (LOPRESSOR) 50 mg tablet Take 0.5 tablets by mouth twice daily. Hold for BP <90/60, HR <55 - omeprazole (PRILOSEC) 40 mg capsule Take 1 capsule by mouth once daily. - QUEtiapine (SEROQUEL) 50 mg tablet Take 1 tablet by mouth daily at bedtime. - diclofenac sodium (VOLTAREN) 1 % topical gel Apply 4 g to affected area four times daily. To back - apixaban (ELIQUIS) 5 mg tab(s) Take 1 tablet by mouth twice daily. - PARoxetine (PAXIL) 40 mg tablet Take 1 tablet by mouth once daily. - valproic acid (DEPAKENE) 250 mg capsule Take 1 capsule by mouth three times daily. - sodium chloride (NaCl) 0.9% injection solution Inject 10 mL intravenously once daily. 10ml before and after dose, 10ml before lab draw, 20ml after lab draw, up to 30ml for sluggish IV, 10ml between bag changes and 10ml daily for maintenance - potassium chloride ER (K-DUR, KLOR-CON) 20 mEq tablet Take 1 tablet by mouth twice daily. - pramoxine-hydrocortis one (PROCTOFOAM-HC) rectal foam 1 Applicator by RECTAL route twice daily. - COMPOUNDED PRESCRIPTION Power Mobility Device scooter. Face to face evaluation 12/30/2018 Diagnosis: (T84.018S, Z96.659) Failure of total knee replacement, sequela (primary encounter diagnosis) (G35) Multiple sclerosis (HCC) (T84.498D) Mechanical complication of internal orthopedic device, implant or graft, subsequent encounter (M25.561, G89.29) Chronic pain of right knee (M17.11) Osteoarthritis of right knee, unspecified osteoarthritis type (R53.1) Generalized weakness (Z74.09) Requires scooter for mobility Length of need: 99 mos/ lifetime. - ascorbic acid, vitamin C, (VITAMIN C) 500 mg tablet Take 1 tablet by mouth twice daily with meals. - ondansetron (ZOFRAN) 4 mg tablet Take 1 tablet by mouth every 8 hours as needed for Nausea/Vomiting. - polyethylene glycol 3350 (MIRALAX, GLYCOLAX) 17 gram packet Take 1 Packet by mouth once daily. Problem List As Of Date 02/28/2021 Noted Resolved Osteoarthritis of right knee [M17.11] MS (multiple sclerosis) (HCC) [G35] Essential hypertension [I10] 02/13/2016 Lumbar disc herniation [M51.26] 06/01/1983 Current smoker [F17.200] 05/28/2016 Knee pain [M25.569] 06/06/2016 Primary osteoarthritis of left knee [M17.12] 01/12/2017 Gastroesophageal reflux disease without esophag*01/16/2017 Headache [R51.9] 01/16/2017 S/P total knee arthroplasty [Z96.659] 01/28/2017 Extensor tendon disruption [M67.89] 03/24/2017 SUMMARY 04/03/2017 04/17/2017 Knee pain, right [M25.561] 04/03/2017 Status post total knee replacement using cement*04/16/2017 04/21/2017 Acute pain of right knee [M25.561] 04/16/2017 04/21/2017 Patellar dislocation, right, initial encounter *04/20/2017 04/21/2017 S/P total knee arthroplasty, right [Z96.651] 06/25/2017 07/08/2017 Acute pain of right knee [M25.561] 06/25/2017 07/08/2017 S/P revision of total knee, right [Z96.651] 07/06/2017 Rupture of quadriceps muscle [S76.119A] 08/04/2017 Acute pulmonary embolism (HCC) [I26.99] 11/26/2017 07/10/2018 Acute deep vein thrombosis (DVT) of right lower*11/26/2017 Acute respiratory failure with hypoxia (HCC) [J*11/26/2017 Chronic pain syndrome [G89.4] 11/27/2017 Chronic prescription benzodiazepine use [Z79.89*11/28/2017 Chronic prescription opiate use [Z79.891] 0 (more content not included)... [facility] CTA CHEST W WO CONTRASTOrder ed By: Nehal Madden on 01-15-2021 [id number] Computed Tomography ACCESSION EXAM DATE/TIME PROCEDURE ORDERING PROVIDER [id number] 01/15/2021 14:48 EDT CTA Chest w/ + w/o [id number] Araseli SANCHEZ CPT code 74763 Q9967 Reason For Exam (CTA Chest w/ + w/o Contrast) concern for PE, hypoxia with recent knee surgery and septic joint Report CLINICAL INFORMATION: Hypoxia. Coughing. Shortness of breath. Fever. Recent knee surgery. Septic joint. CTA CHEST WITH INTRAVENOUS CONTRAST (PULMONARY EMBOLIC DISEASE PROTOCOL) WITH 3-D RECONSTRUCTIONS: Contrast: Isovue-370, [address] images were obtained from the thoracic inlet to the upper abdomen in the usual fashion following intravenous contrast administration with axial, sagittal and coronal 2-D reconstructions. Additional 3-D survey surface shaded images of the pulmonary arteries were concurrently generated by me on the [employer] workstation to better visualize gross vascular anatomy. The images are degraded by artifact most likely from patient motion possibly respiratory. The pulmonary arteries are well-opacified with intravenous contrast. No filling defects are seen in the main, right or left pulmonary arteries or their major branches. There is no evidence of pulmonary embolic disease. No mediastinal or hilar mass or lymphadenopathy is seen. There is a small dense elongated focal consolidation in the right lower lobe with minimal air bronchograms most likely dependent atelectasis although a small pneumonia is not excluded. There is mild irregular consolidation in the medial basilar segment of the left lower lobe and posterior lingula most likely atelectasis. There are additional streaky irregular parenchymal densities in the dependent portions of both upper lobes which could be mild scarring or atelectasis. No pleural effusion or other parenchymal consolidation is seen. The thoracic aorta is moderately well opacified with intravenous contrast without acute abnormality. There is mild atherosclerotic calcification of the undersurface of the arch the descending thoracic aorta. There is mild four-chamber enlargement of the heart. Images through the upper abdomen demonstrate the liver to be decreased in density relative to the spleen consistent with fatty metamorphosis. IMPRESSION: 1. No evidence of pulmonary embolic disease. 2. Small elongated dense consolidation in the right lower lobe which is most Computed Tomography Report likely atelectasis although a small pneumonia is not excluded. 2. Additional irregular parenchymal densities in both upper and lower lobes most likely scarring and/or atelectasis. Report Dictated on --- Final --- Dictating Physician: MD MIN HARLAN Signed Date and Time: 01/15/2021 3:28 pm Signed by: MD MIN HARLAN Transcribed Date and Time: 01/15/2021 3:29 [facility] Work Phone: [facility], [facility] Incoming Radiology Results From [facility] - 01/15/2021 3:29 PM EDT Patient Name: CHARLIE NGUYEN Computed Tomography ACCESSION EXAM DATE/TIME PROCEDURE ORDERING PROVIDER [id number] 01/15/2021 14:48 EDT CTA Chest w/ + w/o [id number] JOSUE CPT code 37643 Q9967 Reason For Exam (CTA Chest w/ + w/o Contrast) concern for PE, hypoxia with recent knee surgery and septic joint Report CLINICAL INFORMATION: Hypoxia. Coughing. Shortness of breath. Fever. Recent knee surgery. Septic joint. CTA CHEST WITH INTRAVENOUS CONTRAST (PULMONARY EMBOLIC DISEASE PROTOCOL) WITH 3-D RECONSTRUCTIONS: Contrast: Isovue-370, [address] images were obtained from the thoracic inlet to the upper abdomen in the usual fashion following intravenous contrast administration with axial, sagittal and coronal 2-D reconstructions. Additional 3-D survey surface shaded images of the pulmonary arteries were concurrently generated by me on the [employer] workstation to better visualize gross vascular anatomy. The images are degraded by artifact most likely from patient motion possibly respiratory. The pulmonary arteries are well-opacified with intravenous contrast. No filling defects are seen in the main, right or left pulmonary arteries or their major branches. There is no evidence of pulmonary embolic disease. No mediastinal or hilar mass or lymphadenopathy is seen. There is a small dense elongated focal consolidation in the right lower lobe with minimal air bronchograms most likely dependent atelectasis although a small pneumonia is not excluded. There is mild irregular consolidation in the medial basilar segment of the left lower lobe and posterior lingula most likely atelectasis. There are additional streaky irregular parenchymal densities in the dependent portions of both upper lobes which could be mild scarring or atelectasis. No pleural effusion or other parenchymal consolidation is seen. The thoracic aorta is moderately well opacified with intravenous contrast without acute abnormality. There is mild atherosclerotic calcification of the undersurface of the arch the descending thoracic aorta. There is mild four-chamber enlargement of the heart. Images through the upper abdomen demonstrate the liver to be decreased in density relative to the spleen consistent with fatty metamorphosis. IMPRESSION: 1. No evidence of pulmonary embolic disease. 2. Small elongated dense consolidation in the right lower lobe which is most Computed Tomography Report likely atelectasis although a small pneumonia is not excluded. 2. Additional irregular parenchymal densities in both upper and lower lobes most likely scarring and/or atelectasis. Report Dictated on --- Final --- Dictating Physician: MD MIN HARLAN Signed Date and Time: 01/15/2021 3:28 pm Signed by: MD MIN HARLAN Transcribed Date and Time: 01/15/2021 3:29 [facility] Work Phone: [phone] [facility] Work Phone: [phone] Comprehensive Metabolic Pane l w/ Reflex to MGOrdered By: Nehal Madden on 01-15-2021 EGFR IF NonAfrican [place] >90.0 >60 mL/min [facility] Work Phone: [phone] Comment on above: KDIGO guidelines pro vide the following GFR categories: Stage GFR(ml/min/1.73 m2) Terms G1 >=90 Normal or high G2 60-89 Mildly decreased* G3a 45-59 Mildly to moderately decreased G3b 30-44 Moderately to severely decreased G4 15-29 Severely decreased G5 <15 Kidney failure *Relative to young adult level. In the absence of evidence of kidney damage, neither GFR category G1 nor G2 fulfill the criteria for CKD. The CKD-EPI equation is validated in individuals 18 years of age and older. Currently the best equation for estimating glomerular filtration rate (GFR) from serum creatinine in children is the Bedside Rosales equation. It is less accurate in patients with extremes of muscle mass, restriction of dietary protein, ingestion of creatine, extra-renal metabolism of creatinine, or treatment with medications that affect renal tubular creatinine secretion. Laboratory - Chemistry and C hemistry - challengeOrdered By: Nehal Madden on 01-15-2021 HCO3 (Bld) [Moles/Vol] 29.9 mmol/L High 23.0 - 27.0 mmol/L [facility] Work Phone: [phone] Albumin [Mass/Vol] 3.7 g/dL 3.5 - 5.0 g/dL [facility] Work Phone: [phone] ALP (Bld) [Catalytic activity/Vol] 100 U/L 38 - 126 U/L [facility] Work Phone: [phone] ALT [Catalytic activity/Vol] 11 U/L 0 - 34 U/L [facility] Work Phone: [phone] Comment on above: The ALT test is perf ormed by an updated assay method. Please note that the reference intervals have been changed and are now sex specific. Anion gap [Moles/Vol] 5 mmol/L 3 - 13 mmol/L [facility] Work Phone: [phone] AST [Catalytic activity/Vol] 28 U/L 15 - 46 U/L [facility] Work Phone: Bilirubin [Mass/Vol] 0.4 mg/dL 0.2 - 1 .3 mg/dL [facility] Work Phone: [phone] Calcium [Mass/Vol] 10.2 mg/dL 8.4 - 10. 4 mg/dL [facility] Work Phone: Chloride [Moles/Vol] 104 mmol/L 98 - 10 7 mmol/L [facility] Work Phone: CO2 [Moles/Vol] 29 mmol/L 22 - 30 mmol/L [facility] Work Phone: Creatinine [Mass/Vol] 0.62 mg/dL 0.52 - 1.25 mg/dL [facility] Work Phone: [phone] Free PSA/Total PSA [Mass fraction] 7.4 g/dL 6.3 - 8.2 g/dL [facility] Work Phone: [phone] GFR/1.73 sq M.predicted among blacks MDRD (S/P/Bld) [Vol rate/Area] mL/min/{1.73_m2} >60 mL/min [facility] Work Phone: Glucose [Mass/Vol] 103 mg/dL High 70 - 100 mg/dL [facility] Work Phone: Lipase [Catalytic activity/Vol] 86 U/L 23 - 300 U/L [facility] Work Phone: [phone] Potassium [Moles/Vol] 4.2 mmol/L 3.5 - 5.1 mmol/L [facility] Work Phone: [phone] Sodium [Moles/Vol] 139 mmol/L 135 - 145 mmol/L [facility] Work Phone: [phone] Urea nitrogen (BldV) [Mass/Vol] 18 mg/dL 7 - 20 mg/dL [facility] Work Phone: [phone] Lactate [Moles/Vol] 1.1 mmol/L 0.7 - 2. 0 mmol/L [facility] Work Phone: Hemoglobin.gastrointesti nal spec 1 Ql (Stl) 11.8 g/dL 11.7 - 16.0 g/dL [facility] Work Phone: Laboratory - Hematology and Cell countsOrdered By: Nehal Madden on 01-15-2021 Basophils/100 WBC (Bld) 0.2 % 0.0 - 2.0 % [facility] Work Phone: 1 Eosinophils (Bld) [#/Vol] 0.6 10*3/uL High 0.0 - 0.5 10*3/uL [facility] Work Phone: Eosinophils/100 WBC (Bld) 4.0 % 1.0 - 6.0 % [facility] Work Phone: Granulocytes/100 WBC (Bld) 84.8 % High 40.0 - 80.0 % [facility] Work Phone: Hematocrit (Bld) [Volume fraction] 35.0 % 35.0 - 47.0 % [facility] Work Phone: Lymphocytes (Bld) [#/Vol] 0.6 10*3/uL Low 1.0 - 4.3 10*3/uL [facility] Work Phone: Lymphocytes/100 WBC (Bld) 4.6 % Low 20.0 - 40.0 % [facility] Work Phone: MCH (RBC) [Entitic mass] 32.3 pg 26. 0 - 34.0 pg [facility] Work Phone: MCHC (RBC) [Mass/Vol] 33.9 % 32.0 - 36.0 % [facility] Work Phone: MCV (RBC) [Entitic vol] 95.3 fL 79.0 - 98.0 fL [facility] Work Phone: Monocytes (Bld) [#/Vol] 0.9 10*3/uL High 0.0 - 0.8 10*3/uL [facility] Work Phone: 1 Monocytes/100 WBC (Bld) 6.4 % 2.0 - 10.0 % [facility] Work Phone: Platelet distribution width (Bld) [Ratio] 15.0 % High 11.5 - 14.5 % [facility] Work Phone: Platelet mean volume (Bld) [Entitic vol] 9.3 fL 7.4 - 10.4 fL [facility] Work Phone: Platelets (Bld) [#/Vol] 255 10*3/uL 140 - 440 10*3/uL [facility] Work Phone: RBC (Bld) [#/Vol] 3.67 10*6/uL Low 3.80 - 5.2 0 10*6/uL [facility] Work Phone: WBC (Bld) [#/Vol] 14.0 10*3/uL High 3.6 - 10.7 10*3/uL [facility] Work Phone: No Panel InformationOrdered By: Nehal Madden on 01-15-2021 Procalcitonin 1.67 ng/mL High 0.00 - 0.09 ng/mL [employer] [facility] Work Phone: Interpretation and review of laboratory results Abnormal [employer] Work Phone: Test Performed by [facility] [address] [employer] Work Phone: [employer] Work Phone: Test Performed by [facility], [address] [place] [address] [place], [place] [address] [employer] Work Phone: [facility] Work Phone: Absolute Baso # 0.0 10*3/uL 0.0 - 0.2 10*3/uL [facility] Work Phone: Absolute Neut # 11.8 10*3/uL High 1.8 - 7.0 10*3/uL [facility] Work Phone: POCT VenousOrdered By: Sera Madden on 01-15-2021 Base Excess, Maikel 3.4 mmol/L High -3.0 - 3.0 mmol/L [facility] Work Phone: 1 FIO2 Venous 6 [facility] Work Phone: Comment on above: Performed by CLIA ID : [id number] [facility] [place], [place] Interpretation and review of laboratory results Abnormal [facility] Work Phone: 1 pCO2, Maikel 52.9 mm[Hg] 40.0 - 55.0 mm[Hg] [facility] Work Phone: 1 pH, Maikel 7.361 [facility] Work Phone: 1 pO2, Maikel 62.4 mm[Hg] High 30.0 - 50.0 mm[Hg] [facility] Work Phone: 1 TC02 (Calc), Maikel 31.5 mmol/L High 24.0 - 28.0 mmol/L [facility] Work Phone: 1 Test Performed by [facility], [address] [place] [id number] [facility] Work Phone: 1 [facility] Work Phone: 1 ProcalcitoninOrdered By: Linda Madden on 01-15-2021 Interpretation See Below [facility] Work Phone: [phone] Comment on above: PCT <0.50 = Low risk of severe sepsis and/or septic shock. PCT >2.00 = High risk of severe sepsis and/or septic shock. Interpretation and review of laboratory results Abnormal [facility] Work Phone: [phone] Test Performed by [facility], [address] [place] [id number] [facility] Work Phone: 1 [facility] Work Phone: [phone] Respiratory Panel, Molecular , with COVID-19 (Restricted: peds pts or suitable admitted adults)Ordered By: Nehal Madden on 01-15-2021 Respiratory Panel Molecular, with COVID NEGATIVE: No targets were detected by the [employer] Upper Respiratory Pathogens PCR Panel. _ Expected Result: Not Detected The [employer] Upper Respiratory Pathogens PCR Panel can detect the following targets: SARS-CoV-2, Adenovirus, Coronavirus 229E, Coronavirus HKU1, Coronavirus NL63, Coronavirus OC43, Human Metapneumovirus, Human Rhinovirus/Enteroviru s, Influenza A, Influenza B, Parainfluenza Virus 1, Parainfluenza Virus 2, Parainfluenza Virus 3, Parainfluenza Virus 4, Respiratory Syncytial Virus, Bordetella pertussis, Bordetella parapertussis, Chlamydia pneumoniae, Mycoplasma pneumoniae. Negative results do not preclude SARS-CoV-2 infection and should not be used as the sole basis for treatment or other patient management decisions. This assay was developed by [employer] and distributed under an Emergency Use Authorization (EUA) granted by the FDA for the qualitative detection of SARS-CoV-2 nucleic acid. Provider and patient fact sheets can be found at https://www.[facility].gov/m edia/028243/download and https://www.fda.gov/m edia/759306/download. [employer] Work Phone: Test Performed by [facility], [address] [place] [id number] [employer] Work Phone: [employer] Work Phone: Vital signsOrdered By: Sera Madden on 01-15-2021 Oxygen saturation in Blood 90.1 % High 60.0 - 80.0 % [employer] Work Phone: XR CHEST PORTABLEOrdered By: Nehal Madden on 01-15-2021 Patient Name: CHARLIE NGUYEN Diagnostic Radiology ACCESSION EXAM DATE/TIME PROCEDURE ORDERING PROVIDER [id number] 01/15/2021 12:53 EDT CR Chest Portable [id number] NEHAL SANCHEZ CPT code 04003 Reason For Exam (CR Chest Portable) sepsis Report PORTABLE CHEST X-RAY CLINICAL INDICATION: sepsis A portable frontal view of the chest was obtained. COMPARISON: 01/05/2021 FINDINGS: The cardiac silhouette is within normal limits. Left-sided PICC line is unchanged. Coarsening of the interstitial lung markings is noted, likely chronic. No focal consolidation is seen within the lungs. There is no large pleural effusion or pneumothorax. There are degenerative changes of the thoracic spine. IMPRESSION: Coarsening of the interstitial lung markings is likely chronic. No focal consolidation is identified. Report Dictated on --- Final --- Dictating Physician: MD CARPENTER JONATHAN R Signed Date and Time: 01/15/2021 1:00 pm Signed by: MD CARPENTER JONATHAN R Transcribed Date and Time: 01/15/2021 1:01 [facility] Work Phone: Rodol[facility], [facility] Incoming Radiology Results From [facility] - 01/15/2021 1:01 PM EDT Patient Name: CHARLIE NGUYEN Diagnostic Radiology ACCESSION EXAM DATE/TIME PROCEDURE ORDERING PROVIDER [id number] 01/15/2021 12:53 EDT CR Chest Portable [id number] -NEHAL MADDEN CPT code 69955 Reason For Exam (CR Chest Portable) sepsis Report PORTABLE CHEST X-RAY CLINICAL INDICATION: sepsis A portable frontal view of the chest was obtained. COMPARISON: 01/05/2021 FINDINGS: The cardiac silhouette is within normal limits. Left-sided PICC line is unchanged. Coarsening of the interstitial lung markings is noted, likely chronic. No focal consolidation is seen within the lungs. There is no large pleural effusion or pneumothorax. There are degenerative changes of the thoracic spine. IMPRESSION: Coarsening of the interstitial lung markings is likely chronic. No focal consolidation is identified. Report Dictated on --- Final --- Dictating Physician: MD CARPENTER JONATHAN R Signed Date and Time: 01/15/2021 1:00 pm Signed by: MD CARPENTER JONATHAN R Transcribed Date and Time: 01/15/2021 1:01 [facility] Work Phone: [facility] Work Phone: CULT/STAIN - AEROBIC AND GAYLA EROBICon 01-11-2021 CULT/STAIN - AEROBIC AND ANAEROBIC CULT./ST. BACTERIA --> Status: F No growth at 3 days. CULTURE ANAEROBE --> Status: F No growth of anaerobes at 5 days. Normal [facility] Comment on above: Performed By: #### C LENORA CORONA ####[facility] [employer] [id number] [place], [place] CULTURE BLOODon 01-11-2021 Microscopic examination of blood, culture CULTURE BLOOD --> Status: F No growth at 5 days. Normal [facility] Comment on above: Performed By: #### C /BLD ####[facility] [employer] [id number] [place], [place] CULTURE BLOOD (Two)on 2020 Microscopic examination of blood, culture CULTURE BLOOD (Two) --> Status: F No growth at 5 days. Normal [facility] Comment on above: Performed By: #### C /BLT ####[facility] [employer] [id number] [place], [place] C-Reactive Proteinon 021 C-Reactive Protein 5.1 mg/dL High 0.0-0.9 [facility] CASE MANAGEMon 01-08-2021 CASE MANAGEM HNO ID: [id number] Author: Trish Gambino RN Service: Case Management Author Type: Registered Nurse Type: Care Mgt Progress Note Filed: 01/08/2021 12:32 PM Note Text: CARE MANAGEMENT DISCHARGE NOTE SERVICE DATE: 01/08/2021 SERVICE TIME: 1230 LOS: 2 days Admission Date: 01/06/2021 DISCHARGE ARRANGEMENT (list agency and phone number) Discharge Arrangement: Return to custodial CAREGIVER ASSESSMENT: Caregiver is ready, willing and able to meet the patient's needs as recommended by the inter-professional team:: No Does the patient have an acute stroke diagnosis, or has the patient had a stroke during this admission?: No Patient's transition needs and plan for meeting these needs: pt to dc to [facility] HANDOFF COMMUNICATION: Handoff to: Primary Care Physician Primary Care Physician Name/Phone: Dr. 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 Location: [place] Destination: [facility] Financial Care Management Responsibility: None ADDITIONAL CONTACT RESOURCES: none Discharge Information Row Name Admission (Current) from 01/06/[address]/[facility] Nursing [facility] Agency [facility] Caregiver is ready, willing and able to meet the patient's needs as recommended by the inter-professional team:: No Does the patient have an acute stroke diagnosis, or has the patient had a stroke during this admission?: No Needs Prior to Discharge: Ready for Discharge Transportation Arrangements: Ambulance/[facility] Transportation Agency and Phone #:: [facility] [phone] Date of Trip: 01/08/21 Time of Trip: 1630 Type of Service: BLS Non-emergency Is Patient Medicaid Pending?: No 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 BLS transport arranged through [facility] for 1630. Bedside nurse aware, DC packet left at nurse's station. Patient aware of dc plans and is agreeable. SIGNATURE: Trish Gambino RN PATIENT NAME: Charlie Nguyen DATE: January 08, 2021 TIME: 12:31 PM PAGER/CONTACT #: [phone] Normal [facility] CBCon 01-08-2021 Absolute nRBC <0.01 Normal <0.01 [facility] Erythrocyte distribution width (RBC) [Ratio] 15.0 % Normal 11.5-15.0 [facility] Hematocrit (Bld) [Volume fraction] 33.9 % Low 36.0-46.0 [facility] Hemoglobin (Bld) [Mass/Vol] 10.6 g/dL Low 11.5-15.5 [facility] MCH 30.7 pG Normal 26.0-34.0 [facility] MCHC (RBC) [Mass/Vol] 31.3 g/dL Normal 30.5-36.0 [facility] MCV (RBC) [Entitic vol] 98.3 fL Normal 80.0-100.0 [facility] Platelet mean volume (Bld) [Entitic vol] 10.9 fL Normal 9.0-12.7 [facility] Platelets (Bld) [#/Vol] 147 10*3/uL Low 150-400 [facility] RBC (Bld) [#/Vol] 3.45 10*6/uL Low 3.90-5.20 [facility] WBC (Bld) [#/Vol] 5.81 10*3/uL Normal 3.70-11.00 [facility] CNDSon 01-08-2021 [facility] HNO ID: [id number] Author: Jasen Ewing DO Service: Orthopaedic Surgery Author Type: Resident Type: Discharge Summary Filed: 01/08/2021 8:47 PM Note Text: Attestation signed by Kurtis Danielson MD at 01/10/2021 9:24 AM I evaluated the patient and personally participated in the bey components. I agree with the resident's findings and plan as documented and have discussed the case and management of the patient's care with the resident. Signature: Kurtis Danielson MD Service Date: 01/10/2021 Service Time: 9:24 AM DISCHARGE SUMMARY PATIENT NAME: Charlie Nguyen ADMISSION DATE: 01/06/2021 DISCHARGE DATE: 01/08/2021 Attending Physician: Kurtis Danielson MD Reason for Hospitalization: Active Problems: Septic arthritis of knee, right (HCC) POA: Yes Resolved Problems: * No resolved hospital problems. * Admitting Diagnosis: Knee Infected Arthroplasty Discharge Diagnosis: Same as admitting Operations During Hospitalization: * No surgery found * Consultations: Physical Therapy Case Management Hospital Course: The patient is a 65 year old female who has been followed by Dr. Kurtis Danielson MD inpatient for R knee PJI s/p IANDD with parts exchange by Dr. Parrish. It was determined she would not benefit from surgery. The patient was admitted on 01/06/2021. Work up was completed and it was determined that the patient could be treated on IV antibiotics and follow up as an outpatient with Dr. Parrish. Once on the floor her stay was unremarkable and she did well. Her diet was advanced which she tolerated. Her pain was well controlled on oral pain meds; this was eventually transitioned to oral medication alone prior to discharge. She worked with Physical and Occupational Therapy who recommended she be discharged back to her facility. She remained afebrile with stable vital signs throughout her stay. She was stable for [facility]. Complete and comprehensive discharge instructions were provided to the patient as well as necessary prescriptions. The patient had no further questions and was advised to call with any questions, concerns, or problems. Patient was hemodynamically stable postoperatively. Relevant labs included: Recent Labs 01/08/21 0548 HB 10.6* HCT 33.9* CBC, Coags, BMP, Mg, Phos Recent Labs 01/08/21 0548 01/06/21 1017 WBC 5.81 5.67 HB 10.6* 12.7 HCT 33.9* 40.5 PLT 147* 193 NA 137 139 K 3.8 4.4 CHLOR 104 105 CO2 25 22 BUN 14 8 CREAT 0.68 0.65 GLUC 109* 80 CA 8.1* 8.2* P 2.6* -- Discharge Antibiotics: Prior to surgery the patient was treated with antibiotics and continued with antibiotics 24 hours postoperatively. Transfers: PACU and then to the hospital surgical floor when PACU criteria was met. DVT Prophylaxis: home eliquis dose Pain Control: multimodal Complications: Continued throughout the hospital course without complications. Labs and Procedures Pending at Discharge: No pending results. Patient Condition @ Discharge: Stable [facility]charge Disposition: [facility] PHYSICAL EXAM (CHOOSE FIRST BLANK IF NOT LAST DAY PROGRESS NOTE): Discharge Activity: Weight Bearing As Tolerated Information Provided to Patient: Discharge Medications: Current Discharge Medication List CONTINUE these medications which have NOT CHANGED oxyCODONE-acetaminoph en (PERCOCET) 1 tablet Take 1 tablet by mouth four times daily as needed for pain. Do not start before January 07, 2021. Qty: 28 tablet Refills: 0 Associated Diagnoses:Infection associated with internal right knee prosthesis, subsequent encounter metoprolol tartrate (short acting) (LOPRESSOR) 25 mg Take 25 mg by mouth twice daily. Hold for BP <90/60, HR <55 cefepime (MAXIPIME) 2 g Inject 2 g intravenously q 12 HR. Qty: 7200 mL Refills: 0 Comments: Needs CBC w/ diff, CMP, vancomycin trough, ESR, CRP every Thursday faxed to [facility] at [phone] vancomycin (VANCOCIN) 1.25 g Inject 1.25 g intravenously q 24 HR. Qty: 9000 mL Refills: 0 Comments: Needs CBC w/ diff, CMP, vancomycin trough, ESR, CRP every Thursday faxed to [facility] at [phone] pregabalin (LYRICA) 100 mg Take 100 mg by mouth twice daily. Qty: 60 capsule Refills: 0 Associated Diagnoses:Chronic pain of right knee diazePAM (VALIUM) 5 mg Take 5 mg by mouth every 12 hours as needed. Qty: 60 tablet Refills: 0 Associated Diagnoses:Chronic anxiety omeprazole (PriLOSEC) 40 mg Take 40 mg by mouth once daily. Qty: 90 capsule Refills: 2 QUEtiapine (SEROquel) 50 mg Take 50 mg by mouth daily at bedtime. Qty: 30 tablet Refills: 0 diclofenac (VOLTAREN) 4 g Apply 4 g to affected area four times daily. To back Qty: 100 g Refills: 5 apixaban (ELIQUIS) 5 mg Take 5 mg by mouth twice daily. (more content not included)... [facility] CONSULTon 01-08-2021 CONSULT HNO ID: [id number] Author: Milton Fernandez MD Service: General Internal Medicine Author Type: Physician Type: Consults Filed: 01/08/2021 10:16 PM Note Text: CONSULT PROGRESS NOTE - INTERNAL MEDICINE PATIENT NAME: Charlie Nguyen SERVICE DATE: 01/08/2021 SERVICE TIME: 0643 ADMITTING PHYSICIAN: Kurtis Danielson MD ASSESSMENT AND PLAN Septic arthritis of knee, right Rt knee PJI s/p washout 12/19/20 OA Chronic pain syndrome Morbid obesity Hx of DVT MS Plan D/w RN Anticipate dc today Cathflo Bowel regimen Incentive spirometer encouraged Abx per ID- Cont. Vanco and Cefepime thru 01/30/21 as scheduled. SW for dc planning-plan dc to [facility] Await pending labs Thank you for allowing us to participate in the care of this patient. SUBJECTIVE In no acute distress INTERVAL HISTORY In bed. No pain, chest pain, sob, nausea/ vomiting or symptoms. Consults notes reviewed OBJECTIVE PHYSICAL EXAM: Patient Vitals for the past 24 hrs: BP Temp Temp src Pulse Resp SpO2 Weight 01/08/21 0020 136/84 36.4 ?C (97.5 ?F) Oral 65 16 95 % 01/07/21 2019 116/84 36.8 ?C (98.2 ?F) Oral 68 16 99 % 111.7 kg (246 lb 4.1 oz) 01/07/21 1742 126/82 01/07/21 1611 86/53 36.6 ?C (97.9 ?F) Oral (!) 59 16 94 % 01/07/21 0933 101/65 36.4 ?C (97.5 ?F) Oral (!) 49 16 98 % 01/07/21 0900 101/65 (!) 49 Body mass index is 34.35 kg/m?. Neuro- no abnormal movements HEENT-head atraumatic Neck-supple Heart- S1, S2, RRR Lungs-ctab Abdomen - soft, nontender, bowel sounds positive Extremities- No edema Skin- no change Joint- no change MEDICATIONS: Current Facility-Administered Medications Medication Dose Route Frequency diazePAM 5 mg tab(s) (VALIUM) 5 mg ORAL q 12 H PRN pregabalin 100 mg cap(s) (LYRICA) 100 mg ORAL BID divalproex DR 250 mg tab(s) (DEPAKOTE) 250 mg ORAL TID QUEtiapine 50 mg tablet (SEROquel) 50 mg ORAL AT BEDTIME metoprolol tartrate (short acting) 25 mg tab(s) (LOPRESSOR) 25 mg ORAL BID pantoprazole DR 40 mg tab(s) (PROTONIX) 40 mg ORAL DAILY PARoxetine 40 mg tab(s) (PAXIL) 40 mg ORAL DAILY NaCl 0.9% iv flush bag 20 mL INTRAVENOUS PRN sodium chloride 0.9 % (flush) 3-5 mL (BD POSIFLUSH) 3-5 mL INTRAVENOUS q 12 H magnesium hydroxide 400 mg/5 mL 30 mL (MOM) 30 mL ORAL DAILY PRN docusate sodium 100 mg cap(s) (COLACE) 100 mg ORAL BID PRN bisacodyl 10 mg suppository (DULCOLAX) 10 mg RECTAL DAILY PRN melatonin 3 mg tab(s) 3 mg ORAL DAILY (8 PM) oxyCODONE IR 5-10 mg tab(s) (ROXICODONE) 5-10 mg ORAL q 6 H PRN cefepime 2 g in D5W 100 mL MB+ (MAXIPIME) 2 g INTRAVENOUS q 12 HR vancomycin 1.25 g in D5W 250 mL (VANCOCIN) 1.25 g INTRAVENOUS q 24 HR ondansetron (PF) 4 mg injection (ZOFRAN) 4 mg INTRAVENOUS q 6 H PRN apixaban 5 mg tab(s) (ELIQUIS) 5 mg ORAL BID acetaminophen 650 mg tab(s) (TYLENOL) 650 mg ORAL q 6 H DATA: Diagnostic tests reviewed for today's visit: Most recent labs Most recent imaging Intake/Output Summary (Last 24 hours) at 01/08/2021 0611 Last data filed at 01/08/2021 0552 Gross per 24 hour Intake Output 500 ml Net -500 ml Above Discussed with Dr Fernandez SIGNATURE: Jan Fernandez APRN.SENIOR CONSUMER INSIGHTS CONSULTANT DATE: January 08, 2021 TIME: 6:11 AM I have reviewed the above note obtained and documented by the FURNITURE FINISHER/PA. I have discussed the case and management of the patient's care. The following comments revise or confirm relevant bey components of the note. Milton Fernandez MD 10:16 PM [facility] NURSING PROGon 01-08-2021 NURSING PROG HNO ID: [id number] Author: Turner Patten RN Service: Nursing Author Type: Registered Nurse Type: Nursing Progress Note Filed: 01/08/2021 3:01 PM Note Text: Nursing Progress Note Patient Name: Charlie Nguyen Patient Location: [id number] Daily Note:Assessment as charted. Patient denies any chest pain or shortness of breath. Goal for the day is to increase mobility and control pain. Bed in low position, bed alarm on, call light in reach. Will continue to monitor. 1459- Report called to [facility]. This note was completed by: Turner Patten [facility] NURSING PROG HNO ID: [id number] Author: Mora Thayer RN Service: Nursing Author Type: Registered Nurse Type: Nursing Progress Note Filed: 01/08/2021 6:58 AM Note Text: Nursing Progress Note Patient Name: Charlie Nguyen Patient Location: [id number] Daily Note:0428 Single lumen PICC with total occlusion. Cath eric injection started. 0450 Cath eric completed. Line clamped and labeled, Do Not Flush, cathflo in place. Will return in 2 hours to attempt to aspirate 0650 Attempted to aspirate from PICC without success. C. Legg SENIOR CONSUMER INSIGHTS CONSULTANT here, states will order second dose of cathflo This note was completed by: Mora Thayer [facility] Renal Function Panelon 01-08 Albumin [Mass/Vol] 3.1 g/dL Low 3.9-4.9 [facility] Anion gap [Moles/Vol] 8 mmol/L Low 9-18 [facility] Calcium [Mass/Vol] 8.1 mg/dL Low 8.5-10.2 [facility] Chloride [Moles/Vol] 104 mmol/L Normal 97-105 [facility] CO2 [Moles/Vol] 25 mmol/L Normal 22-33 [facility] Creatinine [Mass/Vol] 0.68 mg/dL Normal 0.58-0.96 [facility] eGFR- Amer. >60 Normal [facility] eGFR-All Other Races >60 Normal [facility] Comment on above: Result Comment: eGFR (Estimated GFR) Units of measure: mL/min/1.73 meters squared eGFR is derived from the reexpressed MDRD Study equation using the following parameters: serum creatinine, age, gender and race. The creatinine assay has been calibrated to be traceable to IDMS. An eGFR <60 mL/min/1.73m2 for >3 months is consistent with chronic kidney disease. Refer to KDOQI guidelines for clinical interpretation. In patients with unstable renal function, e.g. those with acute kidney injury, the eGFR may not accurately reflect actual GFR. Glucose [Mass/Vol] 109 mg/dL High 74-99 [facility] Phosphate [Mass/Vol] 2.6 mg/dL Low 2.7-4.8 [facility] Potassium [Moles/Vol] 3.8 mmol/L Normal 3.7-5.1 [facility] Sodium [Moles/Vol] 137 mmol/L Normal 136-144 [facility] Urea nitrogen [Mass/Vol] 14 mg/dL Normal 7-21 [facility] THERAPY NTon 01-08-2021 THERAPY NT HNO ID: [id number] Author: Kris Lamb OT/L Service: Occupational Therapy Author Type: Occupational Therapist Type: Therapy (PT/OT/Speech/Resp) Filed: 01/08/2021 1:13 PM Note Text: Occupational Therapy Evaluation SERVICE DATE: 01/08/2021 SERVICE TIME: 1045 to 1110 ROOM: [place] [id number] Recommended Discharge Disposition: ECF Recommended Discharge Disposition Comments: return to ECF with therapy screens Anticipated Discharge Needs: Physical Assist at Home Physical Assist at Home for: Cleaning;Laundry;Meal s;Medication Management;Shopping;T ransportation;Self Care OT 6 Clicks Score: 22 Precautions/Activity Restrictions: Weight Bearing Restrictions;Bed/Raffaele r Alarm;Fall Risk Isolation Type: None Extremity With Weight Bearing Restricted: Right Lower Extremity Right Lower Extremity Weight Bearing Status: WBAT (ROM as tolerated) Reason for Hospital Admission: R septic knee Relevant Past Medical History: MS, HTN, chronic pain Response to Therapy Interventions: Good participation in activities Continue skilled needs due to: Functional impairment Occupational Therapy Problem List: Education Deficit;Pain;Safety Deficits;Impaired Self Care;Functional Mobility Impairment;Balance Impaired Cognition/Communicati on Deficits Responsiveness: Alert, Awake Follows Commands: 3-step Commands, Cueing Needed Cueing to Follow Commands: Minimum Executive Function Deficits: Safety Awareness, Sequencing Sequencing Deficit: Minimal impairment Safety Awareness Deficit: Minimal impairment Treatment Interventions: Education;Self Care / Home Management;Functional Mobility Training;Balance Training;Pain Management Plan for next visit: Bed mobility, Energy conservation, Dressing training, Fall prevention, Pain management, Sit to stand transfers, Standing balance, Standing tolerance Home Environment Patient Lives With: Facility Care ([facility]) Assistance Available: 24 Hour Entry To Home: No Stairs Number Of Stairs To Bed/Bath: 0 Tub/Shower Type: walk in shower Laundry: facility does laundry Equipment Owned: Wheelchair Prior Functional Level: Required Assistance Assistance Required With: Cleaning;Laundry;Meal s;Shopping;Self Care;Medication Management;Transporta tion Prior Functional Level Comments: Pt reports IND in sit pivot to wc, mostly able to do ADLs, however can has assist if needed, assist with all I/ADLs, scoots around in wc propelling with feet Patient Report: Pt agreeable to work with therapy CURRENT FUNCTIONAL STATUS: Most recent performance Current Activities of Daily Living Assist Level Additional Information Feeding Set Up Grooming Set Up Bathing Upper Body Supervision Bathing Lower Body Contact Guard Assistance Dressing Upper Body Supervision Dressing Lower Body Minimal Assistance Toileting Functional Mobility Assist Level Additional Information Rolling Supine to Sit Independent Sit to Supine Scooting Independent Sit to Stand Supervision Stand to Sit Supervision Bed to Chair Supervision Sit Pivot Toilet/Commode Shower Functional Mobility Blank hendrix indicate activity not attempted Balance: Static Sitting;Dynamic Sitting;Static Standing;Dynamic Standing Static Sitting Balance: Normal Patient able to maintain steady balance without handhold support Dynamic Sitting Balance: Normal Patient accepts maximal challenge and can shift weight easily within full range in all directions Static Standing Balance: Good Patient able to maintain balance without handhold support, limited postural sway Dynamic Standing Balance: Fair Patient accepts minimal challenge, able to maintain balance while turning head/trunk Learning/Educational Needs: Discharge Plan;Functional Activities/Mobility;P ain Management;Plan of Care;Safety;Self Care Goals for Plan of Care: Patient /Caregiver Goals: Go Home Goals: Patient will demonstrate understanding of importance of mobility during hospital stay and resolve all self-care, cognitive and/or coping needs identified. Lower Body Bathing with: Supervision Lower Body Dressing with: Supervision Chair Transfer with: Supervision Toilet Transfer with: Supervision Tolerate (minutes of functional activity): 45 Functional Activity with: Supervision Rehab Potential: Good Patient will be discontinued from Occupational Therapy when no further skilled needs are identified in this setting. PLAN: OT Frequency: 2 times per week Plan of Care developed with: Patient TREATMENT INTERVENTIONS: Therapy Diagnosis: Decreased activities of daily living (ADL);Reduced mobility-other Interventions Provided: Evaluation;Self Group Home Management (69018) $ Evaluation-Low (20780) Billed Units: 1 unit Self Group Home Management (04621) Treatment Minutes: 10 $ Self Group Home Management (77801) Billed Units: 1 unit Training AND education provided in: Benefits of in-hospital mobility, Bed mobility, Discharge planning, Fu (more content not included)... [facility] THERAPY NT HNO ID: [id number] Author: Janis Palafox PT Service: Physical Therapy Author Type: Physical Therapist Type: Therapy (PT/OT/Speech/Resp) Filed: 01/08/2021 1:10 PM Note Text: Physical Therapy Evaluation SERVICE DATE: 01/08/2021 SERVICE TIME: 1121 to 1205 ROOM: [place] [address] Recommended Discharge Disposition: Subacute/SNF Recommended Discharge Disposition Comments: pt opperating at new baseline with long term care social worker hopes of working towards improved mobility out of wheelchair Recommended Discharge Disposition Due to: Patient requires daily, facility-based rehabilitation from at least one discipline due to:;ADL impairment resulting in caregiver dependence PT 6 Clicks Score: 16 Isolation Type: None Reason for Hospital Admission: R knee pain Relevant Past Medical History: MS, HTN, chronic pain Response to Therapy Interventions: Good participation in activities Home Environment Patient Lives With: Facility Care Assistance Available: 24 Hour Entry To Home: No Stairs Number Of Stairs To Bed/Bath: 0 Tub/Shower Type: walk in shower Laundry: facility does laundry Equipment Owned: Wheelchair Prior Functional Level: Required Assistance Assistance Required With: Cleaning;Laundry;Safe ty;Self Care;Shopping;Transpo rtation;Medication Management;Meals Prior Functional Level Comments: reporting from [facility]; reporting pivot transfers only to WC, bed, shower chair, etc; has own WC; reporting using feet for steering and propulsion; non-ambulatory Patient Report: I want someone to pay for this (referring to her R knee) CURRENT FUNCTIONAL STATUS: Most recent performance Current Functional Mobility Assist Level Additional Information Rolling Stand By Assistance Supine to Sit Sit to Supine Stand By Assistance Scooting Stand By Assistance Sit to Stand Contact Guard Assistance Stand to Sit Contact Guard Assistance Bed to Chair Contact Guard Assistance Bed To Chair Transfer Type: Sit Pivot Toilet/Commode Gait Stairs Curb Step Car Transfer Blank hendrix indicate activity not attempted Balance: Static Sitting;Dynamic Sitting;Static Standing;Dynamic Standing Static Sitting Balance: Good Patient able to maintain balance without handhold support, limited postural sway Dynamic Sitting Balance: Fair Patient accepts minimal challenge, able to maintain balance while turning head/trunk Static Standing Balance: Fair Patient able to maintain balance with handhold support, may require occasional minimal assistance Dynamic Standing Balance: Fair Patient accepts minimal challenge, able to maintain balance while turning head/trunk JH-HLM: 4: Move to chair / commode Learning/Educational Needs: Discharge Plan;Functional Activities/Mobility;P maxine of Care;Rehabilitation Techniques and Procedures;Safety Goals for Plan of Care: Patient will be discontinued from Physical Therapy when no further skilled needs are identified in this setting. PLAN: PT Frequency: Discontinue therapy services Reasons Therapy Services Discontinued: Other: See Comment (baseline) Plan of Care developed with: Patient TREATMENT INTERVENTIONS: Therapy Diagnosis: No Skilled Need Interventions Provided: Evaluation;Therapeuti c Activity (80407) $ Evaluation-Low (58894) Billed Units: 1 unit Therapeutic Activity (59503) Treatment Minutes: 25 $ Therapeutic Activity (29459) Billed Units: 2 units Training AND education provided in: Benefits of in-hospital mobility, Role of Physical Therapy The following therapeutic skills were used: Activity dosing, Cues for sequencing/proper technique for activity, Cuing tactile, Cuing verbal, Cuing visual Total Timed Code Treatment Minutes: 25 Total Treatment Time (minutes): 44 Please see discipline specific clinical documentation flowsheet for complete details for this therapy evaluation/treatment. SIGNATURE: Janis Palafox PT PATIENT NAME: Charlie Nguyen DATE: January 08, 2021 TIME: 1:10 PM Normal [facility] Vancomycinon 01-08-2021 Vancomycin 15.9 ug/mL Normal 10.0-20.0 [facility] Comment on above: Result Comment: Refe rence ranges and high/low indicator flags are provided as general guidelines only. The treating physician must determine appropriate target levels/dosing based on the specific clinical situation. CONSULT PROGon 01-07-2021 CONSULT PROG HNO ID: [id number] Author: Kelvin Espino MD Service: Infectious Disease Author Type: Physician Type: Consult Progress Note Filed: 01/07/2021 11:11 AM Note Text: Interval History Seeing patient for recent right knee PJI s/p washout 12/19/20 with negative cultures. Discharged to rehab on Vanco/Cefepime thru 01/30/21. Now admitted with fever and increased right knee pain at [facility]. Has been afebrile since admission. Synovial fluid right knee with 945 WBC. No cultures sent. Pt denies specific complaints today. Antibiotics Vanco Cefepime Exam Tm: 36.4 Tc: 36.4 Lung: CTA bilat CV: RRR, S1 and S2 normal. No extra sounds or murmurs. ABD: +BS, soft, NT/ND. No peritoneal signs EXT: right knee with sutures in place. No erythema. No effusion. Remainder of extremities benign. Labs WBC: 5.67 Bun/Cr: 8/0.65 Ucx(01/06): ordered and not sent Bcx(01/06): x 2 -- NGTD COVID-19 PCR(01/07): negative Impression 1. Recent right knee PJI -- s/p washout with negative cultures. -- in midst of empiric abx course thru 01/30/21. 2. Fever/Right knee pain -- afebrile since admission -- repeat blood cultures negative to date Plan 1. Cont. Vanco and Cefepime thru 01/30/21 as scheduled. 2. Check vanco trough today at 2200 and hold 2300 dose for level over 20. 3. Await pending blood cultures 4. Await Ortho plan concerning right knee. Kelvin Espino MD [facility] [phone] Normal [facility] Coronavirus 2019on SARS-CoV-2 (COVID-19) RNA TANVIR+probe Ql (Unsp spec) UPPER RESPIRATORY TRACT SWAB Normal [facility] Comment on above: Performed By: #### C OVID ####[facility] [place], [place] [phone] SARS-CoV-2 (COVID-19) RNA TANVIR+probe Ql (Unsp spec) Negative for COVID19 (SARS CoV2) by RT-PCR or equivalent method. Normal Negative for COVID19 (SARS CoV2) by RT-PCR or equivalent method. [facility] Comment on above: Result Comment: This test was developed and its performance characteristics determined by [facility]. This test has been authorized by FDA under an Emergency Use Authorization (EUA). This test has been validated in accordance with the FDA's Guidance Document Policy for Diagnostics Testing in Laboratories Certified to Perform High Complexity Testing under CLIA prior to Emergency use Authorization for Coronavirus Disease 2019 during the Public Health Emergency issued on July 30, 2019. Test performed by [facility], [facility], [facility] [place], [place] [address]. Performed By: #### C OVID ####[facility] [place], [place] [phone] NURSING PROGon 01-07-2021 NURSING PROG HNO ID: [id number] Author: [address], [employer] Service: Nursing Author Type: Registered Nurse Type: Nursing Progress Note Filed: 01/08/2021 8:43 AM Note Text: Nursing Progress Note Patient Name: Charlie Nguyen Patient Location: [facility] Daily Note: 1900 Assumed care of patient. Received bedside report from off-going RN. Patient denies any needs at this time. Call rose within reach, bed low and locked, bed alarm on, safety maintained. 2018 Assessment and vitals as charted. Patient denies chest pain, shortness of breath, numbness or tingling. Slight nausea-will medicate. Noted PICC to upper left extremity-patent, blood return. Noted lower right extremity warm to touch, sensation intact, capillary refill <3 seconds, pink, sutures--open to air. Reviewed and administered medications. Educated patient on the use of the incentive spirometer. Educated patient to call the nurse/aide for any further needs. Call rose within reach, bed low and locked, bed alarm on, safety maintained. 0300 Tried to flush PICC prior to drawing AM labs, and AM vancomycin post vanco trough at 0125--PICC completely occluded--notified Jim's team, and called NOM (Pooja)--orders received for a VARN nurse to place Cath eric (Mora Ochoa). Changed PICC dressing as the right side of dressing began peeling up. Awaiting for Cath-eric placement. 0450 Catho-eric injected and completed by VARN nurse (Mora). 0650 VARN nurse returned to aspirate Cath-eric--иван minor CNP (Jan Fernandez) at bedside--2nd order of Cath eric to be placed--passed information to the on-coming day-shift nurse. This note was completed by: [address] [facility] NURSING PROG HNO ID: [id number] Author: Mariela Campa RN Service: ? Author Type: Registered Nurse Type: Nursing Progress Note Filed: 01/07/2021 9:42 AM Note Text: 01/07/2021 0600 Pt has really been sleeping all night. She can barely open her eyes but then she'll C/O the IV pump alarming. [facility] NURSING PROG HNO ID: [id number] Author: Turner Patten RN Service: Nursing Author Type: Registered Nurse Type: Nursing Progress Note Filed: 01/07/2021 11:59 AM Note Text: Nursing Progress Note Patient Name: Charlie Nguyen Patient Location: [facility] Daily Note:Assessment as charted. Patient denies any chest pain or shortness of breath. Patient is lethargic. Goal for the day is to increase mobility and control pain. Bed in low position, bed alarm on, call light in reach. Will continue to monitor. This note was completed by: Turner Patten [facility] NURSING PROG HNO ID: [id number] Author: Mariela Campa RN Service: ? Author Type: Registered Nurse Type: Nursing Progress Note Filed: 01/07/2021 3:31 AM Note Text: 01/06/20211999 Assumed care of pt. She is oddly aggravated when you go into her room , julieta if it is frequently. 01/07/2021 0000 Assessment as charted. Sleeping soundly. [facility] ALLIED HEALTHon 01-06-2021 ALLIED HEALTH HNO ID: [id number] Author: RT Esther(R) Service: Radiology Author Type: Churn Tender Type: Allied Health Filed: 01/06/2021 7:28 PM Note Text: Radiology Service Progress Note PATIENT NAME: Charlie Nguyen DATE OF SERVICE: January 06, 2021 TIME: 7:28 PM PATIENT IDENTITY VERIFICATION COMPLETED USING TWO (2) IDENTIFIERS: Name and Date of confirmed by patient verbally and Name and Date of confirmed by identification band. FALL SCREENING: Has the patient had 2 falls in the last year or 1 fall with injury or currently using an Ambulatory Assistive Device (Walker, Cane, Wheelchair, Crutches, etc.)? Inpatient: Screened on floor PATIENT GENDER DATA: Female. status: : No status: NO. PATIENT RELEVANT IMPLANT DATA REVIEWED: Not Applicable RADIOLOGY DEPARTMENT: General X-ray: Exam(s) Completed: Lower Extremity X-Ray(s): Knee, AP / LAT Right PERIPHERAL IV DATA: Not applicable SIGNED BY: RT Esther(R) January 06, 2021 7:28 PM [facility] ALLIED HEALTH HNO ID: [id number] Author: RT Lakisha(R) Service: Radiology Author Type: Churn Tender Type: Allied Health Filed: 01/06/2021 10:26 AM Note Text: Radiology Service Progress Note PATIENT NAME: Charlie Nguyen DATE OF SERVICE: January 06, 2021 TIME: 10:26 AM PATIENT IDENTITY VERIFICATION COMPLETED USING TWO (2) IDENTIFIERS: Name and Date of confirmed by patient verbally and Name and Date of confirmed by identification band. FALL SCREENING: Has the patient had 2 falls in the last year or 1 fall with injury or currently using an Ambulatory Assistive Device (Walker, Cane, Wheelchair, Crutches, etc.)? Inpatient: Screened on floor PATIENT GENDER DATA: Female. status: : No status: NO. PATIENT RELEVANT IMPLANT DATA REVIEWED: Yes RADIOLOGY DEPARTMENT: General X-ray: Exam(s) Completed: Chest X-Ray PERIPHERAL IV DATA: Not applicable SIGNED BY: RT Lakisha(R) January 06, 2021 10:26 AM [facility] Blood Cultureon 01-06-2021 Bacteria identified Cx Nom (Bld) Sp. Request/Comment: - The blood culture bottles are underfilled. Adding volume lower or higher than the 8 to 10 mL per bottle, which is the manufacturers recommended volume, may adversely affect the recovery and/or detection of organisms. 3.0 CC Culture Result - No growth 5 days [facility] Comment on above: Performed By: #### B LCUL ####[place] [id number] [place], [place] [phone] Bacteria identified Cx Nom (Bld) Sp. Request/Comment: - The blood culture bottles are underfilled. Adding volume lower or higher than the 8 to 10 mL per bottle, which is the manufacturers recommended volume, may adversely affect the recovery and/or detection of organisms. 0.1 CC Culture Result - No growth 5 days [facility] Comment on above: Performed By: #### B LCUL ####[place] [id number] [place], [place] [phone] Body Fluid Cell Count with D ifferentialOrdered By: Nica Nolasco on 01-06-2021 Fluid Type SYNOVIAL [facility] Work Phone: [phone] Cell, Fluid 945 {cells}/uL [facility] Work Phone: [phone] Test Performed by [facility], [facility] [place] [address] [facility] Work Phone: [facility] Work Phone: [phone] Body Fluid CrystalOrdered By : Ncia Nolasco on 01-06-2021 Crystals LM Nom (Urine sed) Negative [facility] Work Phone: [phone] Fluid Type Synovial [facility] Work Phone: [phone] Test Performed by [facility], [facility] [place] [address] [facility] Work Phone: [facility] Work Phone: [phone] C-Reactive Proteinon 021 C-Reactive Protein 7.9 mg/dL High 0.0-0.9 [facility] CBC and Differentialon 01-06 Abs Baso 0.00 k/uL Normal <0.11 [facility] Abs [place] 0.00 k/uL Normal <0.87 [facility] Abs Neut 3.46 k/uL Normal 1.45-7.50 [facility] ANC(includeSEG+BAND) 3.46 k/uL Normal [facility] Basophilic stippling LM Ql (Bld) Occasional Normal [facility] Basophils/100 WBC (Bld) 0.0 % Normal [facility] DTYPE Manual Diff Normal [facility] Eosinophils (Bld) [#/Vol] 0.85 10*3/uL High <0.46 [facility] Eosinophils/100 WBC (Bld) 15.0 % Normal [facility] Erythrocyte distribution width (RBC) [Ratio] 15.2 % High 11.5-15.0 [facility] Hematocrit (Bld) [Volume fraction] 40.5 % Normal 36.0-46.0 [facility] Hemoglobin (Bld) [Mass/Vol] 12.7 g/dL Normal 11.5-15.5 [facility] Left Shift Present Normal [facility] Lymphocytes (Bld) [#/Vol] 1.25 10*3/uL Normal 1.00-4.00 [facility] Lymphocytes/100 WBC (Bld) 22.0 % Normal [facility] Lymphocytes/100 WBC (Bld) 1.0 % Normal [facility] MCH 31.3 pG Normal 26.0-34.0 [facility] MCHC (RBC) [Mass/Vol] 31.4 g/dL Normal 30.5-36.0 [facility] MCV (RBC) [Entitic vol] 99.8 fL Normal 80.0-100.0 [facility] Monocytes/100 WBC (Bld) 0.0 % Normal [facility] Myelo% 1.0 % Normal [facility] Neutrophils/100 WBC (Bld) 61.0 % Normal [facility] Platelet Estimate Platelet estimate adequate Normal [facility] Platelet mean volume (Bld) [Entitic vol] 10.0 fL Normal 9.0-12.7 [facility] Platelets (Bld) [#/Vol] 193 10*3/uL Normal 150-400 [facility] Polychromasia Slight Normal [facility] RBC (Bld) [#/Vol] 4.06 10*6/uL Normal 3.90-5.20 [facility] Red Cell Morph SEE COMMENT Normal [facility] Comment on above: Result Comment: Unre markable WBC (Bld) [#/Vol] 5.67 10*3/uL Normal 3.70-11.00 [facility] CONSULTon 01-06-2021 CONSULT HNO ID: [id number] Author: Kelvin Espino MD Service: Infectious Disease Author Type: Physician Type: Consults Filed: 01/06/2021 4:21 PM Note Text: BRIEF ID CONSULT NOTE Pt seen and examined. Full note dictated. Impression 1. 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 Discharged on Cefepime/vanco thru 01/30/21 (6 weeks). -- now admitted with fever at [facility] and worsening right knee pain. -- Sent to OSH where arthrocentesis was performed with 945 WBC. No cultures of synovial fluid, blood, or urine sent. Recommendation 1. Cont. Vanco and Cefepime for now. 2. Will send blood and urine cultures for completeness. 3. Await Ortho plan concerning knee. 4. Will follow. Kelvin Espino MD [facility] [phone] Normal [facility] CONSULT HNO ID: [id number] Author: Kelvin Espino MD Service: Infectious Disease Author Type: Physician Type: Consults Filed: 01/07/2021 8:17 AM Note Text: [facility] Consultation CHARLIE NGUYEN CSN#: [id number] PATIENT TYPE: LOCATION: [address] [place] [address] ATTENDING PHYSICIAN: KURTIS DANIELSON ORIGINATOR: Kelvin Espino MD CONSULTING PHYSICIAN: Kelvin Espino MD DATE OF CONSULTATION: 01/06/2021 DATE OF SERVICE: 01/06/2021 TIME OF SERVICE: 04:08 PM REASON FOR CONSULTATION Fever and right knee PJI. HISTORY OF PRESENT ILLNESS The patient is a 65-year-old female, who underwent a right total knee arthroplasty on 06/06/2016. She has undergone multiple revisions and underwent a washout and liner exchange in October of 2019 with right knee PJI with MSSA. The patient received roughly 5 weeks of postoperative Ancef and was prescribed suppressive doxycycline, which she did not take. She was most recently admitted on 12/19/2020, with concern for right knee PJI. She was taken to the OR on 12/19/2020, for liner exchange and washout. Cultures were negative from surgery. However, the patient was discharged back to nursing facility on vancomycin 1.25 g IV q.24 hours and cefepime 2 g IV q.12 hours with a planned stop date of 01/30/2021. The patient developed fever and increasing right knee pain at her rehab facility and was sent to [facility] on 01/05. She had an arthrocentesis performed at that time, which revealed 985 white cells. It does not appear that fluid was sent for Gram stain or culture. The patient was transferred to [facility]. She has been continued on her vancomycin and cefepime, and ID has been consulted. Of note, the patient has been afebrile since admission. She continues to complain of right knee pain and burning. She otherwise denies shortness of breath, cough, chest pain, abdominal pain, nausea, vomiting, diarrhea, urinary symptoms, other muscle or joint pains. She denies any difficulties with a left arm PICC line. PAST MEDICAL HISTORY Notable for basal cell carcinoma, right pneumothorax, ischemic colitis, lumbar disk herniation, multiple sclerosis, recent right knee PJI with MSSA in 2019. PAST SURGICAL HISTORY Hysterectomy, right total knee arthroplasty as noted in HPI, left total knee arthroplasty, washout with liner exchange in October of 2019 and November of 2020 of the right knee. ALLERGIES 1. MACROBID, HIVES. 2. NSAIDS. 3. GABAPENTIN. 4. TRAMADOL. 5. NORCO. MEDICATIONS Vancomycin 1.25 g IV q.24 hours and cefepime 2 g IV q.12 hours. See MAR for remaining medications. SOCIAL HISTORY She has been residing in a rehab facility. She is a smoker. She denies alcohol or drug use. REVIEW OF SYSTEMS 14-system review of systems is negative for what is mentioned in HPI. FAMILY HISTORY Negative for infectious process. There are no known sick contacts. PHYSICAL EXAMINATION VITAL SIGNS: T-max is 37.1, T-current is 37.1, heart rate 79, respiratory rate 16 blood pressure 135/71. GENERAL: This is an elderly female, who is resting comfortably. HEENT: Her pupils are equal, round, and reactive to light and accommodation. Throat is clear. NECK: There is no cervical lymphadenopathy. LUNGS: Clear to auscultation bilaterally. CARDIAC: Regular rate and rhythm. Normal S1, S2. No extra sounds or murmurs. ABDOMEN: Normoactive bowel sounds. Belly is soft, nontender, nondistended. No organomegaly. EXTREMITIES: The right knee has sutures in place. The knee is mildly swollen. There is no erythema. There is no drainage. I do not appreciate significant joint effusion. She does not have tenderness with palpation. Remainder of extremities are unremarkable. LABORATORY DATA White count is 5.67, hematocrit is 40.5, platelets 193. BUN and creatinine are 8 and 0.65. LFTs are normal. Synovial fluid from 01/05 had 945 white blood cells. It does not appear that this fluid was sent for culture. Urinalysis on 01/06 at outside facility was nitrite negative, leukocyte esterase negative. It does not appear that blood or urine cultures were obtained at the outside facility. No cultures were performed upon arrival to [facility]. Chest x-ray showed no infiltrates. IMPRESSION Reported fever at the nursing facility with increased right knee pain in the setting of recent recurrent right knee PJI, status post washout and liner exchange 12/19/2020. All operative cultures were sterile. The patient is in the midst of an empiric course of antibiotic therapy with cefepime and vancomycin with a planned stop date of January 30, 2021. Arthrocentesis performed at outside hospital on 01/05 showed 945 wbc's. I am unable to track down evidence of cultures being sent of synovial fluid, blood, or urine at the outside facility. Chest x-ray is clear. RECOMMENDATIONS 1. We will continue vancomycin at 1.25 g IV q.24 hours and cefepime 2 g IV (more content not included)... Normal [facility] CONSULT HNO ID: [id number] Author: Milton Fernandez MD Service: General Internal Medicine Author Type: Physician Type: Consults Filed: 01/06/2021 6:32 PM Note Text: CONSULT INITIAL - INTERNAL MEDICINE PATIENT NAME: Charlie Nguyen SERVICE DATE: 01/06/2021 SERVICE TIME: 1550 REASON FOR CONSULT: Medical management REQUESTING PHYSICIAN: Kurtis Danielson MD PRIMARY CARE PHYSICIAN: Moreno Oates MD ASSESSMENT AND PLAN Septic arthritis of knee, right Rt knee PJI s/p washout 12/19/20 Chronic pain syndrome Morbid obesity MS Hx of DVT Plan D/w RN Await ortho plan Follow cultures Antbx per ID recs Pain control support Bowel regimen Incentive spirometer encouraged PT eval when able SW for dc planning DVT Proph- stockings Check labs in AM Thank you for allowing us to participate in the care of this patient SUBJECTIVE HISTORY OF PRESENT ILLNESS: Ms. Nguyen is a 65 year old female who presents with Rt knee periprosthetic joint infection and we are consulted for medical management. Patients pain improved with as needed pain control support medications. Patient denies shortness of breath or chest pain. PAST MEDICAL HISTORY: PAST MEDICAL HISTORY Diagnosis Date Basal cell carcinoma Current smoker 05/28/2016 H/O chest tube placement 2013 R side due to punctured lung Ischemic colitis (HCC) Lumbar disc herniation 1983 MRSA (methicillin resistant Staphylococcus aureus) MS (multiple sclerosis) (HCC) Osteoarthritis of right knee PAST SURGICAL HISTORY: PAST SURGICAL HISTORY Procedure Laterality Date COLONOSCOPY 06/2014 ischemic colitis HYSTERECTOMY HX 1988 JOINT REPLACEMENT HX PAST SURGICAL HISTORY OF surgery for fractured rib PICC LINE INSERT/CONSULT 12/21/2020 TOTAL KNEE REPLACEMENT Right 06/06/2016 Knee replacement, total TOTAL KNEE REPLACEMENT Left 01/28/2017 Knee replacement, total FAMILY HISTORY: FAMILY HISTORY Problem Relation Age of Onset Breast Cancer Mother Kidney Disease Father kidney cancer other (drug overdose) Daughter 38 from fentanyl SOCIAL HISTORY: Social History Tobacco Use Smoking status: Current Every Day Smoker Packs/day: 1.00 Types: Cigarettes Start date: 1969 Smokeless tobacco: Never Used Substance Use Topics Alcohol use: No Drug use: No MEDICATIONS: [START ON 01/07/2021] oxyCODONE-acetaminoph en (PERCOCET) 5-325 mg tablet, Take 1 tablet by mouth four times daily as needed for pain. Do not start before January 07, 2021., Disp: 28 tablet, Rfl: 0 metoprolol tartrate, short acting, (LOPRESSOR) 50 mg tablet, Take 0.5 tablets by mouth twice daily. Hold for BP <90/60, HR <55, Disp: , Rfl: cefepime (MAXIPIME) 2 g in D5W 100 mL, Inject 100 mL intravenously q 12 HR., Disp: 7200 mL, Rfl: 0 vancomycin (VANCOCIN) 1.25 g in D5W 250 mL, Inject 250 mL intravenously q 24 HR., Disp: 9000 mL, Rfl: 0 pregabalin (LYRICA) 100 mg capsule, Take 1 capsule by mouth twice daily for 30 days., Disp: 60 capsule, Rfl: 0 diazePAM (VALIUM) 5 mg tablet, Take 1 tablet by mouth every 12 hours as needed for up to 30 days., Disp: 60 tablet, Rfl: 0 omeprazole (PRILOSEC) 40 mg capsule, Take 1 capsule by mouth once daily., Disp: 90 capsule, Rfl: 2 QUEtiapine (SEROQUEL) 50 mg tablet, Take 1 tablet by mouth daily at bedtime., Disp: 30 tablet, Rfl: 0 diclofenac sodium (VOLTAREN) 1 % topical gel, Apply 4 g to affected area four times daily. To back, Disp: 100 g, Rfl: 5 apixaban (ELIQUIS) 5 mg tab(s), Take 1 tablet by mouth twice daily., Disp: 60 tablet, Rfl: 5 PARoxetine (PAXIL) 40 mg tablet, Take 1 tablet by mouth once daily., Disp: 30 tablet, Rfl: 5 valproic acid (DEPAKENE) 250 mg capsule, Take 1 capsule by mouth three times daily., Disp: 90 capsule, Rfl: 2 sodium chloride (NaCl) 0.9% injection solution, Inject 10 mL intravenously once daily. 10ml before and after dose, 10ml before lab draw, 20ml after lab draw, up to 30ml for sluggish IV, 10ml between bag changes and 10ml daily for maintenance, Disp: , Rfl: acetaminophen (TYLENOL) 500 mg tablet, Take 1,000 mg by mouth every 6 hours as needed for Pain., Disp: , Rfl: potassium chloride ER (K-DUR, KLOR-CON) 20 mEq tablet, Take 1 tablet by mouth twice daily., Disp: 60 tablet, Rfl: 1 pramoxine-hydrocortis one (PROCTOFOAM-HC) rectal foam, 1 Applicator by RECTAL route twice daily., Disp: 20 g, Rfl: 1 COMPOUNDED PRESCRIPTION, Power Mobility Device scooter. Face to face evaluation 12/30/2018 Diagnosis: (T84.018S, Z96.659) Failure of total knee replacement, sequela (primary encounter diagnosis) (G35) Multiple sclerosis (HCC) (T84.498D) Mechanical complication of internal orthopedic device, implant or graft, subsequent encounter (M25.561, G89.29) Chronic pain of right knee (M17.11) Osteoarthritis of right knee, unspecified osteoarthritis type (R53.1) Generalized weakness (Z74.09) Requires scooter for mobility Length of need: 99 mos/ lifetime., Disp: 1 D (more content not included)... Normal [facility] CONSULT HNO ID: [id number] Author: Yoni Forrest DO Service: Orthopaedic Surgery Author Type: Resident Type: Consults Filed: 01/06/2021 6:01 PM Note Text: ORTHOPAEDIC SURGERY CONSULT Patient Name: Charlie Nguyen Account #: Data Unavailable Admission Date: 01/06/2021 Date of Evaluation: January 06, 2021 Time of Evaluation: 6:53 AM Reason for Consult: Right septic knee Requesting Physician: [place] of [facility] Primary Care Physician: Moreno Oates MD IMPRESSION 1. Right septic knee status post arthrotomy 12/20/2020 PLAN Admission status: Currently admitted to the orthopedic team. Test(s)/Imaging: CRP pending, WBC WNL, afebrile. Intervention: Pending discussion with orthopedic staff. PT/OT: WBAT RLE, ROM AT RLE. Diet: NPO. Pain Control: Per primary team. DVT Prophylaxis: Hold all AC for possible surgical intervention. Disposition: 65F hx of R TKA 06/06/2016 s/p two polyexchange with irrigation and debridements on 11/05/2020 and 12/20/2020. PICC line in place receiving vancomycin and cefepime. Knee aspiration at [facility] 985 total nucleated cells. NPO. Hold all AC for possible surgical intervention. Will discuss with [facility] orthopedic staff well control instructor and update plan. SUBJECTIVE Ms. Nguyen is a 65F right knee pain s/p RTKA Dr. Tavares on 06/06/2016. Multiple revisional operations including revision total knee arthroplasty with extensor mechanism repair by Dr. Parrish 03/21/2018. 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 Patient was subsequently sent for right knee irrigation and debridement with polyethylene exchange on 11/06/2019. Patient subsequently underwent second polyexchange with IANDD on 12/20/2020. Patient currently has a PICC line and is receiving vancomycin and cefepime antibiotics. Patient reports that over the last 24 hours she began having increased knee pain and excessive warmth of the knee as well as fevers and chills. Reports her current pain level 8/10 however sleeping peacefully upon entering room. She reported to [facility] ED where aspiration resulted in 985 total nucleated cells and she was then transferred to [place]. Last dose of eliquis 8 PM. Patient currently using a wheelchair. Past Medical History: PAST MEDICAL HISTORY Diagnosis Date - Basal cell carcinoma - Current smoker 05/28/2016 - H/O chest tube placement 2013 R side due to punctured lung - Ischemic colitis (HCC) - Lumbar disc herniation 1983 - MRSA (methicillin resistant Staphylococcus aureus) - MS (multiple sclerosis) (HCC) - Osteoarthritis of right knee Past Surgical History: PAST SURGICAL HISTORY Procedure Laterality Date - COLONOSCOPY 06/2014 ischemic colitis - HYSTERECTOMY HX 1987 - JOINT REPLACEMENT HX - PAST SURGICAL HISTORY OF surgery for fractured rib - PICC LINE INSERT/CONSULT 12/21/2020 - TOTAL KNEE REPLACEMENT Right 06/06/2016 Knee replacement, total - TOTAL KNEE REPLACEMENT Left 01/28/2017 Knee replacement, total Family History: FAMILY HISTORY Problem Relation Age of Onset - Breast Cancer Mother - Kidney Disease Father kidney cancer - other (drug overdose) Daughter 38 from fentanyl Social History: Social History Tobacco Use - Smoking status: Current Every Day Smoker Packs/day: 1.00 Types: Cigarettes Start date: 1969 - Smokeless tobacco: Never Used Substance Use Topics - Alcohol use: No - Drug use: No Medications: Prior to Admission Medications: [START ON 01/07/2021] oxyCODONE-acetaminoph en (PERCOCET) 5-325 mg tablet, Take 1 tablet by mouth four times daily as needed for pain. Do not start before January 07, 2021., Disp: 28 tablet, Rfl: 0 metoprolol tartrate, short acting, (LOPRESSOR) 50 mg tablet, Take 0.5 tablets by mouth twice daily. Hold for BP <90/60, HR <55, Disp: , Rfl: cefepime (MAXIPIME) 2 g in D5W 100 mL, Inject 100 mL intravenously q 12 HR., Disp: 7200 mL, Rfl: 0 vancomycin (VANCOCIN) 1.25 g in D5W 250 mL, Inject 250 mL intravenously q 24 HR., Disp: 9000 mL, Rfl: 0 pregabalin (LYRICA) 100 mg capsule, Take 1 capsule by mouth twice daily for 30 days., Disp: 60 capsule, Rfl: 0 diazePAM (VALIUM) 5 mg tablet, Take 1 tablet by mouth every 12 hours as needed for up to 30 days., Disp: 60 tablet, Rfl: 0 omeprazole (PRILOSEC) 40 mg capsule, Take 1 capsule by mouth once daily., Disp: 90 capsule, Rfl: 2 QUEtiapine (SEROQUEL) 50 mg tablet, Take 1 tablet by mouth daily at bedtime., Disp: 30 tablet, Rfl: 0 diclofenac sodium (VOLTAREN) 1 % topical gel, Apply 4 g to affected area four times daily. To back, Disp: 100 g, Rfl: 5 apixaban (ELIQUIS) 5 mg tab(s), Take 1 tablet by mouth twice daily., Disp: 60 tablet, Rfl: 5 PARoxetine (PAXIL) 40 mg tablet, Take 1 tablet by mouth once daily., Disp: 30 tablet, Rfl: 5 valproic acid (DEPAKENE) 250 mg capsule, Take 1 capsule by mouth three times daily., Disp: 90 capsule, Rfl: 2 sodium chloride (NaCl) 0.9% injecti (more content not included)... Normal [facility] COVID and Resp PCR Panelon 0 01-06-2021 SARS-CoV-2 (COVID-19) RNA TANVIR+probe Ql (Unsp spec) COVID and Resp PCR Panel --> Status: F NEGATIVE: No targets were detected by the [employer] Upper Respiratory Pathogens PCR Panel. _ Expected Result: Not Detected The [employer] Upper Respiratory Pathogens PCR Panel can detect the following targets: SARS-CoV-2, Adenovirus, Coronavirus 229E, Coronavirus HKU1, Coronavirus NL63, Coronavirus OC43, Human Metapneumovirus, Human Rhinovirus/Enteroviru s, Influenza A, Influenza B, Parainfluenza Virus 1, Parainfluenza Virus 2, Parainfluenza Virus 3, Parainfluenza Virus 4, Respiratory Syncytial Virus, Bordetella pertussis, Bordetella parapertussis, Chlamydia pneumoniae, Mycoplasma pneumoniae. Negative results do not preclude SARS-CoV-2 infection and should not be used as the sole basis for treatment or other patient management decisions. This assay was developed by [employer] and distributed under an Emergency Use Authorization (EUA) granted by the FDA for the qualitative detection of SARS-CoV-2 nucleic acid. Provider and patient fact sheets can be found at https://www.fda.gov/m edia/648009/download and https://www.fda.gov/m edia/194089/download. Respiratory Pathogens PCR Panel. _ Expected Result: Not Detected The [employer] Upper Respiratory Pathogens PCR Panel can detect the following targets: SARS-CoV-2, Adenovirus, Coronavirus 229E, Coronavirus HKU1, Coronavirus NL63, Coronavirus OC43, Human Metapneumovirus, Human Rhinovirus/Enteroviru s, Influenza A, Influenza B, Parainfluenza Virus 1, Parainfluenza Virus 2, Parainfluenza Virus 3, Parainfluenza Virus 4, Respiratory Syncytial Virus, Bordetella pertussis, Bordetella parapertussis, Chlamydia pneumoniae, Mycoplasma pneumoniae. Negative results do not preclude SARS-CoV-2 infection and should not be used as the sole basis for treatment or other patient management decisions. This assay was developed by [employer] and distributed under an Emergency Use Authorization (EUA) granted by the FDA for the qualitative detection of SARS-CoV-2 nucleic acid. Provider and patient fact sheets can be found at https://www.fda.gov/m edia/938975/download and https://www.fda.gov/m edia/244488/download. Normal [facility] Comment on above: Performed By: #### B FRP2 ####[facility] [address] [place] [address] Cell Count,Body Fluidon Nucleated Cells 945 {cells}/uL Normal [facility] Comment on above: Performed By: #### D JASON BARROS, CRSTL #### [facility] [address] [place] [address] Fluid Type SYNOVIAL Normal [facility] Comment on above: Performed By: #### D SHILO BARROSC, CRSTL #### [facility] [address] [place] [address] Comp Metabolic Panelon 01-06 Albumin [Mass/Vol] 3.7 g/dL Low 3.9-4.9 [facility] ALP [Catalytic activity/Vol] 119 U/L Normal 34-123 [facility] ALT [Catalytic activity/Vol] 11 U/L Normal 7-38 [facility] Anion gap [Moles/Vol] 12 mmol/L Normal 9-18 [facility] AST [Catalytic activity/Vol] 27 U/L Normal 13-35 [facility] Bilirubin [Mass/Vol] 0.3 mg/dL Normal 0.2-1.3 [facility] Calcium [Mass/Vol] 8.2 mg/dL Low 8.5-10.2 [facility] Chloride [Moles/Vol] 105 mmol/L Normal 97-105 [facility] CO2 [Moles/Vol] 22 mmol/L Normal 22-33 [facility] Creatinine [Mass/Vol] 0.65 mg/dL Normal 0.58-0.96 [facility] eGFR- Amer. >60 Normal [facility] eGFR-All Other Races >60 Normal [facility] Comment on above: Result Comment: eGFR (Estimated GFR) Units of measure: mL/min/1.73 meters squared eGFR is derived from the reexpressed MDRD Study equation using the following parameters: serum creatinine, age, gender and race. The creatinine assay has been calibrated to be traceable to IDMS. An eGFR <60 mL/min/1.73m2 for >3 months is consistent with chronic kidney disease. Refer to KDOQI guidelines for clinical interpretation. In patients with unstable renal function, e.g. those with acute kidney injury, the eGFR may not accurately reflect actual GFR. Glucose [Mass/Vol] 80 mg/dL Normal 74-99 [facility] Potassium [Moles/Vol] 4.4 mmol/L Normal 3.7-5.1 [facility] Protein [Mass/Vol] 7.4 g/dL Normal 6.3-8.0 [facility] Sodium [Moles/Vol] 139 mmol/L Normal 136-144 [facility] Urea nitrogen [Mass/Vol] 8 mg/dL Normal 7-21 [facility] Complete Urinalysison 2020 Appearance (U) Clear Normal Clear [facility] Comment on above: Result Comment: . Performed By: #### C UA2 ####[employer] [id number] [place], [place] Bilirubin,Urine Negative Normal Negative [facility] Comment on above: Result Comment: . Performed By: #### C UA2 ####[address] [place], [place] Color (U) Colorless Normal Lt. Yellow [facility] Comment on above: Result Comment: . Performed By: #### C UA2 ####[facility] [employer] [id number] [place], [place] Glucose Ql (U) Normal Normal Normal (<70) [facility] Comment on above: Result Comment: . Performed By: #### C UA2 ####[id number] [place], [place] Ketone,Urine Negative Normal Negative [facility] Comment on above: Result Comment: . Performed By: #### C UA2 ####[address] [place], [place] Leukocytes,Urine Negative Normal Negative [facility] Comment on above: Result Comment: . Performed By: #### C UA2 ####[address] [address] [address] [place], [place] Nitrites,Urine Negative Normal Negative [facility] Comment on above: Result Comment: . Performed By: #### C UA2 ####[address] [place], [place] Occult Blood,Urine Negative Normal Negative [facility] Comment on above: Result Comment: . Performed By: #### C UA2 ####[address] pH,Urine 5.5 Normal 5.0-8.0 [facility] Comment on above: Result Comment: . Performed By: #### C UA2 ####[address] [place], [place] Specific [place],Urine 1.007 Normal 1.005 - 1.030 [facility] Comment on above: Result Comment: . Performed By: #### C UA2 ####[address] Total Protein,Urine Negative Normal Negative [facility] Comment on above: Result Comment: . Performed By: #### C UA2 ####[address] [place], [place] Urobilinogen,Urine Normal Normal Normal (0-1) [facility] Comment on above: Result Comment: . Performed By: #### C UA2 ####[address] [place], [place] Crystals,Body Fluidon 2020 Crystals LM Nom (Urine sed) Negative Normal [facility] Comment on above: Performed By: #### D IFBF, FLDCC, CRSTL #### [facility] [employer] [facility] [place] [address] Fluid Type Synovial Normal [facility] Comment on above: Performed By: #### D FIORELLA, FLDCC, CRSTL #### [address] [address] Differential, Body FluidOrde red By: Nica Nolasco on 01-06-2021 Differential Count 100 [facility] Work Phone: Eosinophils/100 WBC (Bld) 4 % [facility] Work Phone: Lymphocytes/100 WBC (Bld) 4 % [facility] Work Phone: Macrophage count 1 % [facility] Work Phone: Monocytes/100 WBC (Bld) 9 % [facility] Work Phone: Neutrophils/100 WBC (Bld) 82 % [facility] Work Phone: Test Performed by [facility] [place] [address] [facility] Work Phone: [facility] Work Phone: Differential,Body Fluidson 0 01-06-2021 Eosinophils/100 WBC (Bld) 4 % Normal [facility] Comment on above: Performed By: #### D FIORELLA, FLDCC, CRSTL ####[facility] [employer] [id number] [place] [address] Lymphocytes/100 WBC (Bld) 4 % Normal [facility] Comment on above: Performed By: #### D IFGARY FLDCC, CRSTL ####[facility] [employer] [id number] [place] [address] Macrophages 1 % Normal [facility] Comment on above: Performed By: #### D IFGARY, FLDCC, CRSTL ####[facility] [employer] [id number] [place] [address] Monocytes/100 WBC (Bld) 9 % Normal [facility] Comment on above: Performed By: #### D IFBF, FLRUDDYC, CRSTL ####[facility] [employer] [id number] [place], [place] Neutrophils/100 WBC (Bld) 82 % Normal [facility] Comment on above: Performed By: #### D JASON BARROS CRSTL ####[facility] [place], [place] Cells Counted for Diff 100 Normal [facility] Comment on above: Performed By: #### D JASON BARROS, ARMEN ####[facility] [place], [place] HISTORY PHYSICALon 1 HISTORY PHYSICAL HNO ID: [id number] Author: Yoni Forrest DO Service: Orthopaedic Surgery Author Type: Resident Type: HANDP Filed: 01/06/2021 6:02 PM Note Text: Attestation signed by Kurtis Danielson MD at 01/07/2021 7:41 AM I evaluated the patient and personally participated in the bey components. I agree with the resident's findings and plan as documented and have discussed the case and management of the patient's care with the resident. Signature: Kurtis Danielson MD Service Date: 01/07/2021 Service Time: 7:41 AM ORTHOPAEDIC SURGERY History and Physical Patient Name: Charlie Nguyen Account #: Data Unavailable Admission Date: 01/06/2021 Date of Evaluation: January 06, 2021 Time of Evaluation: 6:53 AM Reason for Consult: Right septic knee Requesting Physician: [place] of ED Primary Care Physician: Moreno Oates MD IMPRESSION 1. Right septic knee status post arthrotomy 12/20/2020 PLAN Admission status: Currently admitted to the orthopedic team. Test(s)/Imaging: CRP pending, WBC WNL, afebrile. Intervention: Pending discussion with orthopedic staff. PT/OT: WBAT RLE, ROM AT RLE. Diet: NPO. Pain Control: Per primary team. DVT Prophylaxis: Hold all AC for possible surgical intervention. Disposition: 65F hx of R TKA 06/06/2016 s/p two polyexchange with irrigation and debridements on 11/05/2020 and 12/20/2020. PICC line in place receiving vancomycin and cefepime. Knee aspiration at [facility] 985 total nucleated cells. NPO. Hold all AC for possible surgical intervention. Will discuss with [facility] orthopedic staff well control instructor and update plan. SUBJECTIVE Ms. Nguyen is a 65F right knee pain s/p RTKA Dr. Tavares on 06/06/2016. Multiple revisional operations including revision total knee arthroplasty with extensor mechanism repair by Dr. Parrish 03/21/2018. 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 Patient was subsequently sent for right knee irrigation and debridement with polyethylene exchange on 11/06/2019. Patient subsequently underwent second polyexchange with IANDD on 12/20/2020. Patient currently has a PICC line and is receiving vancomycin and cefepime antibiotics. Patient reports that over the last 24 hours she began having increased knee pain and excessive warmth of the knee as well as fevers and chills. Reports her current pain level 8/10 however sleeping peacefully upon entering room. She reported to [facility] ED where aspiration resulted in 985 total nucleated cells and she was then transferred to [place]. Last dose of eliquis 8 PM. Patient currently using a wheelchair. Past Medical History: PAST MEDICAL HISTORY Diagnosis Date - Basal cell carcinoma - Current smoker 05/28/2016 - H/O chest tube placement 2013 R side due to punctured lung - Ischemic colitis (HCC) - Lumbar disc herniation 1983 - MRSA (methicillin resistant Staphylococcus aureus) - MS (multiple sclerosis) (HCC) - Osteoarthritis of right knee Past Surgical History: PAST SURGICAL HISTORY Procedure Laterality Date - COLONOSCOPY 06/2014 ischemic colitis - HYSTERECTOMY HX 1987 - JOINT REPLACEMENT HX - PAST SURGICAL HISTORY OF surgery for fractured rib - PICC LINE INSERT/CONSULT 12/21/2020 - TOTAL KNEE REPLACEMENT Right 06/06/2016 Knee replacement, total - TOTAL KNEE REPLACEMENT Left 01/28/2017 Knee replacement, total Family History: FAMILY HISTORY Problem Relation Age of Onset - Breast Cancer Mother - Kidney Disease Father kidney cancer - other (drug overdose) Daughter 38 from fentanyl Social History: Social History Tobacco Use - Smoking status: Current Every Day Smoker Packs/day: 1.00 Types: Cigarettes Start date: 1969 - Smokeless tobacco: Never Used Substance Use Topics - Alcohol use: No - Drug use: No Medications: Prior to Admission Medications: [START ON 01/07/2021] oxyCODONE-acetaminoph en (PERCOCET) 5-325 mg tablet, Take 1 tablet by mouth four times daily as needed for pain. Do not start before January 07, 2021., Disp: 28 tablet, Rfl: 0 metoprolol tartrate, short acting, (LOPRESSOR) 50 mg tablet, Take 0.5 tablets by mouth twice daily. Hold for BP <90/60, HR <55, Disp: , Rfl: cefepime (MAXIPIME) 2 g in D5W 100 mL, Inject 100 mL intravenously q 12 HR., Disp: 7200 mL, Rfl: 0 vancomycin (VANCOCIN) 1.25 g in D5W 250 mL, Inject 250 mL intravenously q 24 HR., Disp: 9000 mL, Rfl: 0 pregabalin (LYRICA) 100 mg capsule, Take 1 capsule by mouth twice daily for 30 days., Disp: 60 capsule, Rfl: 0 diazePAM (VALIUM) 5 mg tablet, Take 1 tablet by mouth every 12 hours as needed for up to 30 days., Disp: 60 tablet, Rfl: 0 omeprazole (PRILOSEC) 40 mg capsule, Take 1 capsule by mouth once daily., Disp: 90 capsule, Rfl: 2 QUEtiapine (SEROQUEL) 50 mg (more content not included)... [facility] NURSING PROGon 01-06-2021 NURSING PROG HNO ID: [id number] Author: Bambi Palmer RN Service: ? Author Type: Registered Nurse Type: Nursing Progress Note Filed: 01/06/2021 2:31 PM Note Text: Nursing Progress Note Patient Name: Charlie Nguyen Patient [facility] Daily Note: 0755 Patient awake in bed, alert and oriented x 3. MARX, follows commands. Right knee incision with sutures intact. No drainage noted. Surrounding area warm to touch and edematous. Vital signs stable. Medicated for pain. Pt denies further needs. Bed alarm on. Call light in reach. 1057 Spoke with PICC team re: placement shown on xray. They stated it was in correct spot, 1106 rec'd order that it is okay to use PICC line. 1248 Patient resting in bed. Medicated for nausea. Pt denies further needs. Bed alarm on. Call light in reach. 1426 Patient having nausea, requesting IV pain medication and antiemetic from Medical. This note was completed by: Bambi Palmer [facility] NURSING PROG HNO ID: [id number] Author: Jan Whitehead RN Service: Nursing Author Type: Registered Nurse Type: Nursing Progress Note Filed: 01/06/2021 6:41 AM Note Text: Nursing Progress Note Patient Name: Charlie Nguyen Patient Location: [facility]-1 Daily Note: 0400 Patient arrived to floor at this time with EMS squad. Right knee with obvious sutures, though without redness or any apparent drainage. Dressing to left upper extremity PICC line changed, though will hold off future use until speaking with primary service. Paged Orthopedic resident on-call regarding patient arrival. Will continue to monitor. 0530 Spoke with Orthopedic resident, Lon, regarding patient. Will assess patient soon. 0630 Orthopedic resident on floor to see patient. This note was completed by: Jan Whitehead Normal [facility] STAIN GRAMon 01-06-2021 STAIN GRAM STAIN GRAM --> Status: F Few polymorphonuclear cells/lpf. No organisms seen. No organisms seen. Normal [facility] Comment on above: Performed By: #### C Anitra CORONA/PADILLA ####[facility] [place] [address] UrinalysisOrdered By: Rabia Palomares on 01-06-2021 Appearance (U) Clear Clear NA [employer] Work Phone: 1 Comment on above: . Bilirubin Urine Negative Negative mg/dL [employer] Work Phone: 1 Comment on above: . Color (U) Colorless Lt. Yellow NA [employer] Work Phone: 1 Comment on above: . Glucose, Ur Normal Normal (<70) mg/dL [employer] Work Phone: 1 Comment on above: . Ketones Ql (U) Negative Negative mg/dL [employer] Work Phone: 1 Comment on above: . LEUKOCYTES, UA Negative Negative Simon/uL [employer] Work Phone: 1 Comment on above: . Nitrite, Urine Negative Negative NA [employer] Work Phone: 1 Comment on above: . Occult Blood,Urine Negative Negative mg/dL [employer] Work Phone: [phone] Comment on above: . pH (U) 5.5 [pH] [employer] Work Phone: 1 Comment on above: . Specific [place], Urine 1.007 S [facility] Work Phone: 1 Comment on above: . Total Protein, Urine Negative Negativ e mg/dL [employer] Work Phone: [phone] Comment on above: . Urobilinogen, Urine Normal Normal ( 0-1) mg/dL [employer] Work Phone: [phone] Comment on above: . Test Performed by [facility], [address] [place] [address] [employer] Work Phone: 1 [employer] Work Phone: XR CHEST 1V FRONTAL PORTon 0 01-06-2021 XR CHEST 1V FRONTAL PORT * * *Final Repo rt* * * DATE OF EXAM: Jan 06 2021 10:26AM HCX 5376 - XR CHEST 1V FRONTAL PORT / PROCEDURE REASON: Evaluate tube, line or lead position * * * * Physician Interpretation * * * * RESULT: EXAMINATION: CHEST RADIOGRAPH (PORTABLE SINGLE VIEW AP) Exam Date/Time: 01/06/2021 10:26 AM CLINICAL HISTORY: Evaluate tube, line or lead position MQ: XCPR_5 Comparison: 12/19/2020 RESULT: Patient is rotated Lines, tubes, and devices: Left arm central line tip at the cavoatrial junction. Lungs and pleura: No pneumothorax or pleural effusion or gross focal consolidation. Vascular interstitial prominence, accentuated by supine portable technique and decreased lung volumes, similar to prior. Cardiomediastinal silhouette: Accentuated by decreased lung volumes and supine technique, grossly stable. Other: Remote right-sided rib fractures. Thoracic spine degenerative changes.. IMPRESSION: Left arm central line tip at the cavoatrial junction Transcribed Using Voice Recognition Transcribe Date/Time: Jan 06 2021 10:48A Dictated by: LISSET PALMA MD This examination was interpreted and the report reviewed and electronically signed by: LISSET PALMA MD on Jan 06 2021 10:51AM EST [id number] N [facility] XR KNEE 2V AP/LAT RTon 01-06 XR KNEE 2V AP/LAT RT * * *Final Report* * * DATE OF EXAM: Jan 06 2021 7:27PM HCX 5207 - XR KNEE 2V AP/LAT RT / PROCEDURE REASON: Post-operative / post-procedure assessment, asymptomatic * * * * Physician Interpretation * * * * RESULT: Right knee HISTORY: 65 years old Clinical information: Post-operative / post-procedure assessment, asymptomatic Post op per order knee pain TECHNIQUE: Images: XR KNEE 2V AP/LAT RT Comparison: None. RESULT: Findings: Status post total knee joint replacement with methylmethacrylate fixation. Patella has been resected. No periprosthetic lucency or bony destruction. IMPRESSION: No acute bony finding. Transcribed Using Voice Recognition Transcribe Date/Time: Jan 06 2021 7:46P Dictated by: SULAIMAN GUZMAN MD This examination was interpreted and the report reviewed and electronically signed by: SULAIMAN GUZMAN MD on Jan 06 2021 7:48PM EST [id number] N [facility] C-REACTIVE PROTEINOrdered By : Kian Palomares on 01-05-2021 CRP [Mass/Vol] 64.3 mg/L High 0.0 - 6.0 mg/L [employer] Work Phone: [phone] Comment on above: . C-Reactive Proteinon 021 CRP [Mass/Vol] 64.3 mg/L High 0.0-6.0 [employer] [facility] Comment on above: Result Comment: . Performed By: #### C RP2, PCAL, CMP3M, LIPA4, HEMDF, ESR #### [facility] [address] [place] [address] CBC auto differentialOrdered By: Kian Palomares on 01-05-2021 Absolute Baso # 0.0 10*3/uL 0.0 - 0.2 10*3/uL [employer] Work Phone: [phone] Absolute Neut # 4.3 10*3/uL 1.8 - 7.0 10*3/uL [employer] Work Phone: Hemoglobin.gastrointesti nal spec 1 Ql (Stl) 11.3 g/dL Low 11.7 - 16.0 g/dL [employer] Work Phone: [phone] MCHC (RBC) [Mass/Vol] 32.9 % 32.0 - 36.0 % [employer] Work Phone: [phone] Platelet distribution width (Bld) [Ratio] 15.0 % High 11.5 - 14.5 % [employer] Work Phone: CR Chest Portableon 01-06-20 21 CR Chest Portable Patient Name: CHARLIE NGUYEN Diagnostic Radiology ACCESSION EXAM DATE/TIME PROCEDURE ORDERING PROVIDER [id number] 01/05/2021 20:28 EDT CR Chest Portable [id number] CABALLERO CPT code 72211 Reason For Exam (CR Chest Portable) sepsis Report CHEST PORTABLE CLINICAL INDICATION: sepsis TECHNIQUE: Portable chest x-ray(s). COMPARISON: January,. FINDINGS: Left PICC line tip projects over the SVC. Cardiac and mediastinal silhouette within normal limits. Lungs again show interstitial prominence and coarsening bilaterally, about the same. No significant vascular congestion. No focal consolidation or apparent pneumothorax. Degenerative change again noted in the thoracic spine. Old, right mid lateral rib fracture deformities again evident. IMPRESSION: 1. No acute findings. Report Dictated on Workstation: ALLEN Final Dictated: 01/05/2021 8:49 pm Dictating Physician: MD PABLO WENDELL Signed Date and Time: 01/05/2021 8:50 pm Signed by: MD PABLO WENDELL Transcribed Date and Time: 01/05/2021 8:49 Normal [facility] CR Knee 3 Views Righton CR Knee 3 Views Right Patient Name: CHARLIE FARNSWORTH Diagnostic Radiology ACCESSION EXAM DATE/TIME PROCEDURE ORDERING PROVIDER [id number] 01/05/2021 20:28 EDT CR Knee 3 Views Right [id number] CABALLERO CPT code 05698 Reason For Exam (CR Knee 3 Views Right) R knee pain, swelling, recent surgery Report CLINICAL INDICATION: Right knee pain and swelling. TECHNIQUE: Three views of the right knee COMPARISON: 11/04/2019 FINDINGS/IMPRESSION: Longstem cemented right total knee arthroplasty prosthesis is again demonstrated and appears to be similar in alignment. Since prior study there has been loss of bone involving the distal lateral femoral metaphysis with subtle erosive changes present. These findings suggest possible hardware infection. Healed fracture deformity involving the fibula. There is soft tissue swelling and suspected joint effusion. No subcutaneous gas. Report Dictated on Final Dictated: 01/05/2021 8:45 pm Dictating Physician: MD ADAME VLADIMIR Signed Date and Time: 01/05/2021 8:50 pm Signed by: MD ADAME VLADIMIR Transcribed Date and Time: 01/05/2021 8:45 Normal [facility] CTA Chest W WO (PE study)Ord ered By: Kian Palomares on 01-05-2021 [id number] ACCESSION EXAM DATE/TIME PROCEDURE ORDERING PROVIDER [id number] 01/05/2021 22:12 EDT CTA Chest w/ + w/o [id number] -Araseli PALOMARES KIAN CPT code 54324 Q9967 Reason For Exam (CTA Chest w/ + w/o Contrast) hypoxia, recent surgery Report CTA CHEST WITH CONTRAST CLINICAL INDICATION: Chest pain hypoxia. Recent surgery. Serial axial CT images were obtained from the lung apices through the upper abdomen after a bolus tracked intravenous contrast injection over the pulmonary arteries. 75 cc of Isovue 370 contrast was given intravenously. Three-dimensional and surface-shaded reconstructions were performed by myself on a separate workstation at the time of dictation. COMPARISON: Chest x-ray obtained earlier the same day, CTA chest 10/20/2019. FINDINGS: Heart size is within normal limits. Thoracic aorta and pulmonary trunk are normal in caliber no filling defects within the pulmonary arterial tree though some of the more peripheral subsegmental branches are slightly suboptimally evaluated due to motion artifact. There are areas of amorphous soft tissue in the left lower paratracheal region, axial series 4 image 101. Mildly enlarged right perihilar lymph node measures 12 mm in short access. There are additional prominent mediastinal lymph nodes. There may be some subtle wall thickening involving portions of the esophagus. No significant pericardial effusion. Left-sided PICC line with its tip in the SVC. There are emphysematous changes. Mild patchy subpleural linear opacities at the lung bases likely reflect atelectasis. There is mild biapical pleural-parenchymal scarring. No pleural effusions or pneumothorax. Tiny hiatal hernia. Visualized portions of the liver and spleen appear within normal limits. No discrete adrenal mass or nodule in the visualized portions of the adrenal glands. Prominent and mildly enlarged periportal lymph nodes measuring up to 12 mm in short access. There are some prominent axillary lymph nodes. There is slight asymmetric nodularity involving the lateral right breast, for example axial image 164. Degenerative spondylosis in the visualized spine. Multiple right-sided chronic rib fracture deformities. IMPRESSION: Computed Tomography Report 1. No CTA evidence of pulmonary embolism. 2. Emphysema with suspected bibasilar atelectasis. 3. Mildly enlarged right perihilar lymph node with amorphous soft tissue in the left lower paratracheal region which is nonspecific and which could reflect adenopathy though other etiologies are difficult to exclude. Clinical correlation and short-term follow-up is recommended. 4. Prominent and mildly enlarged periportal lymph nodes, nonspecific. 5. Slight asymmetric nodularity involving the lateral right breast could reflect normal breast parenchyma. Recommend correlation with mammography. Report Dictated on --- Final --- Dictated: 01/05/2021 10:19 pm Dictating Physician: MD ADAME VLADIMIR Signed Date and Time: 01/05/2021 10:33 pm Signed by: MD ADAME VLADIMIR Transcribed Date and Time: 01/05/2021 10:19 [facility] Work Phone: [facility], [facility] Incoming Radiology Results From [facility] - 01/05/2021 10:34 PM EDT Patient Name: CHARLIE NGUYEN Computed Tomography ACCESSION EXAM DATE/TIME PROCEDURE ORDERING PROVIDER [id number] 01/05/2021 22:12 EDT CTA Chest w/ + w/o [id number] Araseli SILVA CPT code 64179 Q9967 Reason For Exam (CTA Chest w/ + w/o Contrast) hypoxia, recent surgery Report CTA CHEST WITH CONTRAST CLINICAL INDICATION: Chest pain hypoxia. Recent surgery. Serial axial CT images were obtained from the lung apices through the upper abdomen after a bolus tracked intravenous contrast injection over the pulmonary arteries. 75 cc of Isovue 370 contrast was given intravenously. Three-dimensional and surface-shaded reconstructions were performed by myself on a separate workstation at the time of dictation. COMPARISON: Chest x-ray obtained earlier the same day, CTA chest 10/20/2019. FINDINGS: Heart size is within normal limits. Thoracic aorta and pulmonary trunk are normal in caliber no filling defects within the pulmonary arterial tree though some of the more peripheral subsegmental branches are slightly suboptimally evaluated due to motion artifact. There are areas of amorphous soft tissue in the left lower paratracheal region, axial series 4 image 101. Mildly enlarged right perihilar lymph node measures 12 mm in short access. There are additional prominent mediastinal lymph nodes. There may be some subtle wall thickening involving portions of the esophagus. No significant pericardial effusion. Left-sided PICC line with its tip in the SVC. There are emphysematous changes. Mild patchy subpleural linear opacities at the lung bases likely reflect atelectasis. There is mild biapical pleural-parenchymal scarring. No pleural effusions or pneumothorax. Tiny hiatal hernia. Visualized portions of the liver and spleen appear within normal limits. No discrete adrenal mass or nodule in the visualized portions of the adrenal glands. Prominent and mildly enlarged periportal lymph nodes measuring up to 12 mm in short access. There are some prominent axillary lymph nodes. There is slight asymmetric nodularity involving the lateral right breast, for example axial image 164. Degenerative spondylosis in the visualized spine. Multiple right-sided chronic rib fracture deformities. IMPRESSION: Computed Tomography Report 1. No CTA evidence of pulmonary embolism. 2. Emphysema with suspected bibasilar atelectasis. 3. Mildly enlarged right perihilar lymph node with amorphous soft tissue in the left lower paratracheal region which is nonspecific and which could reflect adenopathy though other etiologies are difficult to exclude. Clinical correlation and short-term follow-up is recommended. 4. Prominent and mildly enlarged periportal lymph nodes, nonspecific. 5. Slight asymmetric nodularity involving the lateral right breast could reflect normal breast parenchyma. Recommend correlation with mammography. Report Dictated on --- Final --- Dictated: 01/05/2021 10:19 pm Dictating Physician: MD ADAME VLADIMIR Signed Date and Time: 01/05/2021 10:33 pm Signed by: MD ADAME VLADIMIR Transcribed Date and Time: 01/05/2021 10:19 [facility] Work Phone: [facility] Work Phone: CTA Chest w/ + w/o Contrasto n 01-05-2021 CTA Chest w/ + w/o Contrast [facility]: [id number] Tomography ACCESSION EXAM DATE/TIME PROCEDURE ORDERING PROVIDER [id number] 01/05/2021 22:12 EDT CTA Chest w/ + w/o [id number] Araseli SILVA CPT code 76080 Q9967 Reason For Exam (CTA Chest w/ + w/o Contrast) hypoxia, recent surgery Report CTA CHEST WITH CONTRAST CLINICAL INDICATION: Chest pain hypoxia. Recent surgery. Serial axial CT images were obtained from the lung apices through the upper abdomen after a bolus tracked intravenous contrast injection over the pulmonary arteries. 75 cc of Isovue 370 contrast was given intravenously. Three-dimensional and surface-shaded reconstructions were performed by myself on a separate workstation at the time of dictation. COMPARISON: Chest x-ray obtained earlier the same day, CTA chest 10/20/2019. FINDINGS: Heart size is within normal limits. Thoracic aorta and pulmonary trunk are normal in caliber no filling defects within the pulmonary arterial tree though some of the more peripheral subsegmental branches are slightly suboptimally evaluated due to motion artifact. There are areas of amorphous soft tissue in the left lower paratracheal region, axial series 4 image 101. Mildly enlarged right perihilar lymph node measures 12 mm in short access. There are additional prominent mediastinal lymph nodes. There may be some subtle wall thickening involving portions of the esophagus. No significant pericardial effusion. Left-sided PICC line with its tip in the SVC. There are emphysematous changes. Mild patchy subpleural linear opacities at the lung bases likely reflect atelectasis. There is mild biapical pleural-parenchymal scarring. No pleural effusions or pneumothorax. Tiny hiatal hernia. Visualized portions of the liver and spleen appear within normal limits. No discrete adrenal mass or nodule in the visualized portions of the adrenal glands. Prominent and mildly enlarged periportal lymph nodes measuring up to 12 mm in short access. There are some prominent axillary lymph nodes. There is slight asymmetric nodularity involving the lateral right breast, for example axial image 164. Degenerative spondylosis in the visualized spine. Multiple right-sided chronic rib fracture deformities. IMPRESSION: Computed Tomography Report 1. No CTA evidence of pulmonary embolism. 2. Emphysema with suspected bibasilar atelectasis. 3. Mildly enlarged right perihilar lymph node with amorphous soft tissue in the left lower paratracheal region which is nonspecific and which could reflect adenopathy though other etiologies are difficult to exclude. Clinical correlation and short-term follow-up is recommended. 4. Prominent and mildly enlarged periportal lymph nodes, nonspecific. 5. Slight asymmetric nodularity involving the lateral right breast could reflect normal breast parenchyma. Recommend correlation with mammography. Report Dictated on Final Dictated: 01/05/2021 10:19 pm Dictating Physician: MD ADAME VLADIMIR Signed Date and Time: 01/05/2021 10:33 pm Signed by: MD ADAME VLADIMIR Transcribed Date and Time: 01/05/2021 10:19 Normal [facility] Comp Panel with Mg Reflexon 01-05-2021 ALT [Catalytic activity/Vol] 12 U/L Normal 0-34 [facility] Comment on above: Result Comment: The ALT test is performed by an updated assay method. Please note that the reference intervals have been changed and are now sex specific. Performed By: #### C RP2, PCAL, CMP3M, LIPA4, HEMDF, ESR #### [address] [place] [address] Calcium [Mass/Vol] 8.2 mg/dL Low 8.4-10.4 [facility] Comment on above: Performed By: #### C RP2, PCAL, CMP3M, LIPA4, HEMDF, ESR #### [address] [place] [address] Glucose [Mass/Vol] 109 mg/dL High 70-100 [facility] Comment on above: Performed By: #### C RP2, PCAL, CMP3M, LIPA4, HEMDF, ESR #### [facility] [address] [place] [address] Urea nitrogen [Mass/Vol] 16 mg/dL Normal 7-20 [facility] Comment on above: Performed By: #### C RP2, PCAL, CMP3M, LIPA4, HEMDF, ESR #### [address] [place] [address] ALP [Catalytic activity/Vol] 108 U/L Normal 38-126 [facility] Comment on above: Performed By: #### C RP2, PCAL, CMP3M, LIPA4, HEMDF, ESR #### [address] [address] [place], [place] Anion gap [Moles/Vol] 5 mmol/L Normal 3-13 [facility] Comment on above: Performed By: #### C RP2, PCAL, CMP3M, LIPA4, HEMDF, ESR #### [address] [address] [place], [place] AST [Catalytic activity/Vol] 52 U/L High 15-46 [facility] Comment on above: Performed By: #### C RP2, PCAL, CMP3M, LIPA4, HEMDF, ESR #### [address] [address] [place] Bilirubin [Mass/Vol] 0.4 mg/dL Normal 0.2-1.3 [facility] Comment on above: Performed By: #### C RP2, PCAL, CMP3M, LIPA4, HEMDF, ESR #### [address] [address] [place], [place] CO2 [Moles/Vol] 23 mmol/L Normal 22-30 [facility] Comment on above: Performed By: #### C RP2, PCAL, CMP3M, LIPA4, HEMDF, ESR #### [address] [address] [place], [place] Creatinine [Mass/Vol] 0.83 mg/dL Normal 0.52-1.25 [facility] Comment on above: Performed By: #### C RP2, PCAL, CMP3M, LIPA4, HEMDF, ESR #### [address] [address] [place], [place] GFR/1.73 sq M.predicted among blacks MDRD (S/P/Bld) [Vol rate/Area] 86.0 mL/min/{1.73_m2} Normal >60 [facility] Comment on above: Performed By: #### C RP2, PCAL, CMP3M, LIPA4, HEMDF, ESR #### [address] [address] [place], [place] GFR/1.73 sq M.predicted among non-blacks MDRD (S/P/Bld) [Vol rate/Area] 74.2 mL/min/{1.73_m2} Normal >60 [facility] Comment on above: Result Comment: KDIG O guidelines provide the following GFR categories: Stage GFR(ml/min/1.73 m2) Terms G1 >=90 Normal or high G2 60-89 Mildly decreased* G3a 45-59 Mildly to moderately decreased G3b 30-44 Moderately to severely decreased G4 15-29 Severely decreased G5 <15 Kidney failure *Relative to young adult level. In the absence of evidence of kidney damage, neither GFR category G1 nor G2 fulfill the criteria for CKD. The CKD-EPI equation is validated in individuals 18 years of age and older. Currently the best equation for estimating glomerular filtration rate (GFR) from serum creatinine in children is the Bedside Rosales equation. It is less accurate in patients with extremes of muscle mass, restriction of dietary protein, ingestion of creatine, extra-renal metabolism of creatinine, or treatment with medications that affect renal tubular creatinine secretion. Performed By: #### C RP2, PCAL, CMP3M, LIPA4, HEMDF, ESR #### [address] Protein [Mass/Vol] 6.9 g/dL Normal 6.3-8.2 [facility] Comment on above: Performed By: #### C RP2, PCAL, CMP3M, LIPA4, HEMDF, ESR #### [address] Potassium [Moles/Vol] 4.3 mmol/L Normal 3.5-5.1 [facility] Comment on above: Performed By: #### C RP2, PCAL, CMP3M, LIPA4, HEMDF, ESR #### [address] Albumin [Mass/Vol] 3.4 g/dL Low 3.5-5.0 [facility] Comment on above: Performed By: #### C RP2, PCAL, CMP3M, LIPA4, HEMDF, ESR #### [address] [address] Chloride [Moles/Vol] 105 mmol/L Normal 98-107 [facility] Comment on above: Performed By: #### C RP2, PCAL, CMP3M, LIPA4, HEMDF, ESR #### [facility] [address] [place] [address] Sodium [Moles/Vol] 132 mmol/L Low 135-145 [facility] [facility] Comment on above: Performed By: #### C RP2, PCAL, CMP3M, LIPA4, HEMDF, ESR #### [facility] [address] [place] [address] Comprehensive Metabolic Pane l w/ Reflex to MGOrdered By: Kian Palomares on 01-05-2021 Albumin [Mass/Vol] 3.4 g/dL Low 3.5 - 5.0 g/dL [facility] Work Phone: [phone] ALP (Bld) [Catalytic activity/Vol] 108 U/L 38 - 126 U/L [facility] Work Phone: [phone] ALT [Catalytic activity/Vol] 12 U/L 0 - 34 U/L [facility] Work Phone: [phone] Comment on above: The ALT test is perf ormed by an updated assay method. Please note that the reference intervals have been changed and are now sex specific. Anion gap [Moles/Vol] 5 mmol/L 3 - 13 mmol/L [facility] Work Phone: [phone] AST [Catalytic activity/Vol] 52 U/L High 15 - 46 U/L [facility] Work Phone: Bilirubin [Mass/Vol] 0.4 mg/dL 0.2 - 1 .3 mg/dL [facility] Work Phone: Calcium [Mass/Vol] 8.2 mg/dL Low 8.4 - 10. 4 mg/dL [facility] Work Phone: Chloride [Moles/Vol] 105 mmol/L 98 - 10 7 mmol/L [facility] Work Phone: [phone] CO2 [Moles/Vol] 23 mmol/L 22 - 30 mmol/L [facility] Work Phone: Creatinine [Mass/Vol] 0.83 mg/dL 0.52 - 1.25 mg/dL [facility] Work Phone: EGFR IF NonAfrican [place] 74.2 mL/min >60 [facility] Work Phone: Comment on above: KDIGO guidelines pro vide the following GFR categories: Stage GFR(ml/min/1.73 m2) Terms G1 >=90 Normal or high G2 60-89 Mildly decreased* G3a 45-59 Mildly to moderately decreased G3b 30-44 Moderately to severely decreased G4 15-29 Severely decreased G5 <15 Kidney failure *Relative to young adult level. In the absence of evidence of kidney damage, neither GFR category G1 nor G2 fulfill the criteria for CKD. The CKD-EPI equation is validated in individuals 18 years of age and older. Currently the best equation for estimating glomerular filtration rate (GFR) from serum creatinine in children is the Bedside Rosales equation. It is less accurate in patients with extremes of muscle mass, restriction of dietary protein, ingestion of creatine, extra-renal metabolism of creatinine, or treatment with medications that affect renal tubular creatinine secretion. Free PSA/Total PSA [Mass fraction] 6.9 g/dL 6.3 - 8.2 g/dL [facility] Work Phone: GFR/1.73 sq M.predicted among blacks MDRD (S/P/Bld) [Vol rate/Area] 86.0 mL/min/{1.73_m2} >60 [facility] Work Phone: Glucose [Mass/Vol] 109 mg/dL High 70 - 100 mg/dL [facility] Work Phone: Potassium [Moles/Vol] 4.3 mmol/L 3.5 - 5.1 mmol/L [facility] Work Phone: Sodium [Moles/Vol] 132 mmol/L Low 135 - 145 mmol/L [facility] Work Phone: Urea nitrogen (BldV) [Mass/Vol] 16 mg/dL 7 - 20 mg/dL [facility] Work Phone: ED Provider Noteon ED Provider Note Emergency Department Encounter [facility] EMERGENCY DEPT Patient: Charlie Nguyen : 1955 Date of Evaluation: 01/05/2021 ED Provider: RAH Telles As the AZR-kg-edvqph, I performed a medical screening history and physical exam on this patient. An N95 and gloves were worn during the entirety of this encounter. HISTORY OF PRESENT ILLNESS In brief, Charlie Nguyen is a 65 y.o. female that presents for right knee pain, fever that started today. Patient had a right knee surgery done on the by Dr. Parrish at [facility]. Patient had an infection in her right knee, and underwent an washout. Patient had a knee replacement approximately 4 years ago, and was found to have a septic joint couple of weeks ago, and underwent washout [facility]. Patient has been on IV antibiotics at her rehab facility. Patient states that today, start having worsening pain and a fever of 102 degrees Fahrenheit. Patient states that the swelling and the pain has been getting worse. Patient denies any nausea, vomiting, lightheadedness, dizziness, chest pain, shortness of breath, numbness or tingling. PHYSICAL EXAM ED Triage Vitals [01/05/211909] Enc Vitals Group BP (!) 78/51 Pulse 81 Resp 14 Temp 100.5 ?F (38.1 ?C) Temp Source Oral SpO2 92 % Weight 230 lb (104.3 kg) Height 5' 11 (1.803 m) Head Circumference Peak Flow Pain Score Pain Loc Pain Edu? Excl. in GC? Patient was seen initially by myself in the EMS offload area On brief exam, regular heart rate and rhythm, lungs are clear to auscultation bilateral lung hendrix, patient was hypoxic on my evaluation 84% on room air, was placed on 3 L nasal cannula with improvement to 93%. Right lower extremity has some diffuse erythema, warmth, swelling, surgical site appears to be intact, no wound dehiscence or abscess. No overlying rash. Right lower extremity is neurovascularly intact. Patient was hypotensive, systolic 84. Was repeated, soft systolic of 78. Sepsis a order set was initiated. Patient was started broad-spectrum antibiotics, and 30mg/cc of IV fluids. We will initiate diagnostics/treatment s as indicated and place in main ED as soon as available. RAH Telles [employer] RAH Telles 01/05/211920 Emergency Department Encounter [facility] EMERGENCY DEPT Patient: Charlie Nguyen : 1955 Date of Evaluation: 01/05/2021 ED Provider: RAH Telles EDcare was supervised by Dr. Hudson who independently examined and evaluated the patient. Please see their attestation note for further details. Chief Complaint Chief Complaint Patient presents with ? Knee Pain pt states she had recent knee surgury and now is having swelling and her right knee is hot to touch and states that the pain is a burning intermittent 9/10 [place] (Location/Symptom, Timing/Onset, Context/Setting, Quality, Duration, Modifying Factors, Severity) Note limiting factors. Charlie Nguyen is a 65 y.o. female who presents to the emergency department complaining of right knee pain, fevers. Patient was seen initially by myself in the EMS offload with triage, please see my HPI for patient initial presentation. ROS: Review of Systems 14 systems reviewed and otherwise acutely negative except as in the [place]. Past History Past Medical History: Diagnosis Date ? Anxiety ? Benign neoplasm of brain (HCC) ? Brain tumor (HCC) 02/01/2015 Found small tumor, has appt with neurologist in May ? Chronic back pain ? Chronic pain syndrome ? Cognitive communication deficit ? COVID-19 ? Depression ? GERD (gastroesophageal reflux disease) ? Headache ? Hypertension ? Ischemic colitis (HCC) ? MRSA (methicillin resistant Staphylococcus aureus) ? MS (multiple sclerosis) (HCC) ? Schizoaffective disorder (HCC) ? Tobacco use Past Surgical History: Procedure Laterality Date ? BRONCHOSCOPY 10/06/2019 ? HYSTERECTOMY ? KNEE SURGERY Right 06/2016 ? TUBAL LIGATION Social History Socioeconomic History ? Marital status: Spouse name: Not on file ? Number of children: Not on file ? Years of education: Not on file ? Highest education level: Not on file Occupational History ? Not on file Tobacco Use ? Smoking status: Current Every Day Smoker Packs/day: 1.00 Types: Cigarettes ? Smokeless tobacco: Never Used Substance and Sexual Activity ? Alcohol use: No Alcohol/week: 0.0 standard drinks ? Drug use: No ? Sexual activity: Not on file Other Topics Concern ? Not on file Social History Narrative ? Not on file Social Determinants of Health Financial Resource Strain: ? Difficulty of Paying Living Expenses: Food Insecurity: ? Worried About Running Out of Food in the Last Year: ? Ran Out of Food in the Last Year: Transportation Needs: ? Lack of Transportation (Medical): ? Lack of Transportation (Non-Medical): Physical Activi (more content not included)... Normal [facility] ED Provider Note Emergency Department Encounter [facility] EMERGENCY DEPT Patient: Charlie Nguyen : 1955 Date of Evaluation: 01/05/2021 ED Supervising Physician: Erika Hudson MD I independently examined and evaluated Charlie Nguyen. In brief, Charlie Nguyen is a 65 y.o. female with a past medical history significant for GERD, hypertension, ischemic colitis, chronic pain syndrome, and brain tumor that presents to the emergency department for evaluation for any pain to the right knee. Patient states recently had surgical procedure to the knee after which she got infected and had to get a washout of the joint. Patient states that she started having fevers and chills at home and now is having knee pain hence coming to the emergency department for evaluation. The patient denies falling on the knee or any trauma. She however endorses chills. She denies chest pain, shortness of breath, abdominal pain, nausea, vomiting, numbness and tingling to the right lower extremity, coolness to touch or pain out of proportion. Focused exam: Itd-rio-krgxywjsq in no acute distress. Alert and oriented X 3. Lungs clear to auscultation bilaterally with no wheezes or crackles appreciated. Heart rate and rhythm regular with no murmurs. Abdomen soft nontender nondistended with positive bowel sounds. No edema appreciated on the lower extremities bilaterally. Knee with tenderness to palpation. Incisions intact. Brief ED course/MDM: ED Course as of Jan 06 443 Sat Jan 05, 20215 EKG with sinus rhythm with a rate of 76. Patient with no ST elevations or depressions concerning for STEMI. Patient with left axis deviation. WA 167, QRS 92, with a QTC of 419. [PK] ED Course User Index [PK] Erika Hudson MD 65-year-old presenting for evaluation for right knee pain with swelling. Presentation concerning for recurrence of knee joint infection versus fluid collection. Work-up in the emergency department with an elevated sedimentation rate and CRP but improved from previous, mild hyponatremia with a sodium of 132, no renal function impairment, no transaminitis, none leukocytosis with stable anemia. Knee x-rays with possible osteomyelitis of the femoral bone. Patient had a CTA and a chest x-ray obtained for concern for PE given recent surgical procedure. Imaging was unremarkable for any acute findings. Given x-ray findings of the right knee orthopedic surgery was consulted to evaluate the patient. Arthrocentesis was completed at bedside with simple fluid with increased PMNs. Given these findings patient was started on empiric antibiotics in the emergency department. I discussed with the patient that since surgery was performed at an outside hospital would recommend admission at this hospital for further evaluation and management by surgical team. Patient verbalized understanding of information given and agreed to plan. Patient was discussed with Dr. Danielson at [facility] who accepted patient for admission. Patient was admitted in stable condition and transferred. All diagnostic, treatment, and disposition decisions were made by myself in conjunction with the ERMELINDA. For all further details of the patient's emergency department visit, please see their documentation. (Please note that portions of this note may have been completed with a voice recognition program. Efforts were made to edit the dictations but occasionally words are mis-transcribed.) Erika Hudson MD Acute Care [facility] Erika Hudson MD 01/06/21 0505 Normal [facility] Hemogram w/ Autodiffon 01-05 Abs Baso Cnt 0.0 10*3/uL Normal 0.0-0.2 [facility] Comment on above: Performed By: #### C RP2, PCAL, CMP3M, LIPA4, HEMDF, ESR #### [address] [address] Abs Neutrophile Cnt 4.3 10*3/uL Normal 1.8-7.0 [facility] Comment on above: Performed By: #### C RP2, PCAL, CMP3M, LIPA4, HEMDF, ESR #### [address] [address] Erythrocyte distribution width (RBC) [Ratio] 15.0 % High 11.5-14.5 [facility] Comment on above: Performed By: #### C RP2, PCAL, CMP3M, LIPA4, HEMDF, ESR #### [address], [place] Hemoglobin (Bld) [Mass/Vol] 11.3 g/dL Low 11.7-16.0 [facility] Comment on above: Performed By: #### C RP2, PCAL, CMP3M, LIPA4, HEMDF, ESR #### [address] MCHC 32.9 % Normal 32.0-36.0 [facility] Comment on above: Performed By: #### C RP2, PCAL, CMP3M, LIPA4, HEMDF, ESR #### [address] Hemogram w/ AutodiffOrdered By: Kian Palomares on 01-05-2021 Basophils/100 WBC (Bld) 0.1 % Normal 0.0-2.0 S [facility] Work Phone: Comment on above: Performed By: #### C RP2, PCAL, CMP3M, LIPA4, HEMDF, ESR #### [address] Eosinophils (Bld) [#/Vol] 0.7 10*3/uL High 0.0-0.5 [facility] Work Phone: Comment on above: Performed By: #### C RP2, PCAL, CMP3M, LIPA4, HEMDF, ESR #### [address] Eosinophils/100 WBC (Bld) 11.3 % High 1.0-6.0 [facility] Work Phone: Comment on above: Performed By: #### C RP2, PCAL, CMP3M, LIPA4, HEMDF, ESR #### [address] Granulocytes/100 WBC (Bld) 68.6 % Normal 40.0-80.0 [facility] Work Phone: Comment on above: Performed By: #### C RP2, PCAL, CMP3M, LIPA4, HEMDF, ESR #### [facility] [employer] [place] [address] [address] [place], [place] Hematocrit (Bld) [Volume fraction] 34.5 % Low 35.0-47.0 [facility] Work Phone: [phone] Comment on above: Performed By: #### C RP2, PCAL, CMP3M, LIPA4, HEMDF, ESR #### [facility] [employer] [place] [address] [address] [place], [place] Lymphocytes (Bld) [#/Vol] 1.1 10*3/uL Normal 1.0-4.3 [facility] Work Phone: [phone] Comment on above: Performed By: #### C RP2, PCAL, CMP3M, LIPA4, HEMDF, ESR #### [facility] [employer] [address] Lymphocytes/100 WBC (Bld) 16.7 % Low 20.0-40.0 [facility] Work Phone: [phone] Comment on above: Performed By: #### C RP2, PCAL, CMP3M, LIPA4, HEMDF, ESR #### [facility] [employer] [place] [address] [place], [place] MCH (RBC) [Entitic mass] 31.7 pg Normal 26.0-34.0 [facility] Work Phone: Comment on above: Performed By: #### C RP2, PCAL, CMP3M, LIPA4, HEMDF, ESR #### [facility] [employer] [address] MCV (RBC) [Entitic vol] 96.5 fL Normal 79.0-98.0 [facility] Work Phone: [phone] Comment on above: Performed By: #### C RP2, PCAL, CMP3M, LIPA4, HEMDF, ESR #### [facility] [employer] [address] Monocytes (Bld) [#/Vol] 0.2 10*3/uL Normal 0.0-0.8 [facility] Work Phone: [phone] Comment on above: Performed By: #### C RP2, PCAL, CMP3M, LIPA4, HEMDF, ESR #### [facility] [address] [place], [place] Monocytes/100 WBC (Bld) 3.3 % Normal 2.0-10.0 [facility] Work Phone: [phone] Comment on above: Performed By: #### C RP2, PCAL, CMP3M, LIPA4, HEMDF, ESR #### [facility] [place] [address] [address] [place], [place] Platelet mean volume (Bld) [Entitic vol] 8.3 fL Normal 7.4-10.4 [facility] Work Phone: [phone] Comment on above: Performed By: #### C RP2, PCAL, CMP3M, LIPA4, HEMDF, ESR #### [facility] [place] [address] [place], [place] Platelets (Bld) [#/Vol] 208 10*3/uL Normal 140-440 [facility] Work Phone: [phone] Comment on above: Performed By: #### C RP2, PCAL, CMP3M, LIPA4, HEMDF, ESR #### [facility] [place], [place] RBC (Bld) [#/Vol] 3.57 10*6/uL Low 3.80-5.20 [facility] Work Phone: [phone] Comment on above: Performed By: #### C RP2, PCAL, CMP3M, LIPA4, HEMDF, ESR #### [facility] [place] [address] [address] [place], [place] WBC (Bld) [#/Vol] 6.3 10*3/uL Normal 3.6-10.7 [facility] Work Phone: [phone] Comment on above: Performed By: #### C RP2, PCAL, CMP3M, LIPA4, HEMDF, ESR #### [facility] [address] Lactate, SepsisOrdered By: Anitra Palomares on 01-05-2021 Lactate [Moles/Vol] 0.7 mmol/L 0.7 - 2. 0 mmol/L [facility] Work Phone: [phone] Test Performed by [facility], [address] [place] [address] [facility] Work Phone: [phone] [facility] Work Phone: [phone] Lactic Acid, Sepsison 2020 Lactate [Moles/Vol] 0.7 mmol/L Normal 0.7-2.0 [facility] Comment on above: Performed By: #### L ACTS ####[facility] [place] [address] Lipaseon 01-05-2021 Lipase [Catalytic activity/Vol] 29 U/L Normal 23-300 [facility] Comment on above: Performed By: #### C RP2, PCAL, CMP3M, LIPA4, HEMDF, ESR #### [facility] [address] [place] [address] LipaseOrdered By: Kian velasquez on 01-05-2021 Lipase [Catalytic activity/Vol] 29 U/L 23 - 300 U/L [facility] Work Phone: [phone] Panel InformationOrdered By: Kian Palomares on 01-05-2021 Interpretation and review of laboratory results Abnormal [facility] Work Phone: [phone] Test Performed by [facility], [address] [place] [address] [facility] Work Phone: [phone] [facility] Work Phone: [phone] Interpretation and review of laboratory results Abnormal [facility] Work Phone: [phone] Test Performed by [facility], [address] [place] [address] [facility] Work Phone: [phone] [facility] Work Phone: [phone] Procalcitoninon 01-05-2021 Procalcitonin 0.99 ng/mL High 0.00-0.09 [facility] Comment on above: Performed By: #### C RP2, PCAL, CMP3M, LIPA4, HEMDF, ESR #### [facility] [address] [place] [address] Interpretation See Below Normal [facility] Comment on above: Result Comment: PCT <0.50 = Low risk of severe sepsis and/or septic shock. PCT >2.00 = High risk of severe sepsis and/or septic shock. Performed By: #### C RP2, PCAL, CMP3M, LIPA4, HEMDF, ESR #### [facility] [address] [place] [address] ProcalcitoninOrdered By: Lillian Palomares on 01-05-2021 Interpretation See Below [facility] Work Phone: Comment on above: PCT <0.50 = Low risk of severe sepsis and/or septic shock. PCT >2.00 = High risk of severe sepsis and/or septic shock. Interpretation and review of laboratory results Abnormal [facility] Work Phone: Procalcitonin 0.99 ng/mL High 0.00 - 0.09 ng/mL [facility] Work Phone: Test Performed by [facility] [employer] [facility], [address] [place] [address] [employer] Work Phone: [employer] Work Phone: Respiratory Panel, Molecular , with COVID-19 (Restricted: peds pts or suitable admitted adults)Ordered By: Kian Palomares on 01-05-2021 Respiratory Panel Molecular, with COVID NEGATIVE: No targets were detected by the [employer] Upper Respiratory Pathogens PCR Panel. _ Expected Result: Not Detected The [employer] Upper Respiratory Pathogens PCR Panel can detect the following targets: SARS-CoV-2, Adenovirus, Coronavirus 229E, Coronavirus HKU1, Coronavirus NL63, Coronavirus OC43, Human Metapneumovirus, Human Rhinovirus/Enteroviru s, Influenza A, Influenza B, Parainfluenza Virus 1, Parainfluenza Virus 2, Parainfluenza Virus 3, Parainfluenza Virus 4, Respiratory Syncytial Virus, Bordetella pertussis, Bordetella parapertussis, Chlamydia pneumoniae, Mycoplasma pneumoniae. Negative results do not preclude SARS-CoV-2 infection and should not be used as the sole basis for treatment or other patient management decisions. This assay was developed by [employer] and distributed under an Emergency Use Authorization (EUA) granted by the FDA for the qualitative detection of SARS-CoV-2 nucleic acid. Provider and patient fact sheets can be found at https://www.[facility].gov/m edia/284180/download and https://www.[facility].gov/m edia/106223/download. [employer] Work Phone: Test Performed by [facility], [address] [place] [address] [employer] Work Phone: [employer] Work Phone: Sed Rateon 01-05-2021 Sed Rate 27 mm/h High 0-20 [facility] Comment on above: Performed By: #### C RP2, PCAL, CMP3M, LIPA4, HEMDF, ESR #### [facility] [address] [place] [address] Sedimentation RateOrdered By : Kian Palomares on 01-05-2021 Sed Rate 27 mm/h High 0 - 20 mm/h [employer] Work Phone: XR CHEST PORTABLEOrdered By: Kian Palomares on 01-05-2021 Patient Name: CHARLIE NGUYEN Diagnostic Radiology ACCESSION EXAM DATE/TIME PROCEDURE ORDERING PROVIDER [id number] 01/05/2021 20:28 EDT CR Chest Portable [id number] KIAN SILVA CPT code 40196 Reason For Exam (CR Chest Portable) sepsis Report CHEST PORTABLE CLINICAL INDICATION: sepsis TECHNIQUE: Portable chest x-ray(s). COMPARISON: January,. FINDINGS: Left PICC line tip projects over the SVC. Cardiac and mediastinal silhouette within normal limits. Lungs again show interstitial prominence and coarsening bilaterally, about the same. No significant vascular congestion. No focal consolidation or apparent pneumothorax. Degenerative change again noted in the thoracic spine. Old, right mid lateral rib fracture deformities again evident. IMPRESSION: 1. No acute findings. Report Dictated on Workstation: [id number] --- Final --- Dictated: 01/05/2021 8:49 pm Dictating Physician: MD PABLO WENDELL Signed Date and Time: 01/05/2021 8:50 pm Signed by: MD PABLO WENDELL Transcribed Date and Time: 01/05/2021 8:49 [facility] Work Phone: Rodol[facility], [facility] Incoming Radiology Results From [facility] - 01/05/2021 8:51 PM EDT Patient Name: CHARLIE NGUYEN Diagnostic Radiology ACCESSION EXAM DATE/TIME PROCEDURE ORDERING PROVIDER [id number] 01/05/2021 20:28 EDT CR Chest Portable KIAN ANDERSON CPT code 77212 Reason For Exam (CR Chest Portable) sepsis Report CHEST PORTABLE CLINICAL INDICATION: sepsis TECHNIQUE: Portable chest x-ray(s). COMPARISON: January,. FINDINGS: Left PICC line tip projects over the SVC. Cardiac and mediastinal silhouette within normal limits. Lungs again show interstitial prominence and coarsening bilaterally, about the same. No significant vascular congestion. No focal consolidation or apparent pneumothorax. Degenerative change again noted in the thoracic spine. Old, right mid lateral rib fracture deformities again evident. IMPRESSION: 1. No acute findings. Report Dictated on Workstation: [email or web address] --- Final --- Dictated: 01/05/2021 8:49 pm Dictating Physician: MD PABLO WENDELL Signed Date and Time: 01/05/2021 8:50 pm Signed by: MD PABLO WENDELL Transcribed Date and Time: 01/05/2021 8:49 [facility] Work Phone: [facility] Work Phone: XR KNEE RIGHT (3 VIEWS)Order ed By: Kian Palomares on 01-05-2021 Patient Name: CHARLIE NGUYEN Diagnostic Radiology ACCESSION EXAM DATE/TIME PROCEDURE ORDERING PROVIDER [id number] 01/05/2021 20:28 EDT CR Knee 3 Views Right [id number] CABALLERO CPT code 82874 Reason For Exam (CR Knee 3 Views Right) R knee pain, swelling, recent surgery Report CLINICAL INDICATION: Right knee pain and swelling. TECHNIQUE: Three views of the right knee COMPARISON: 11/04/2019 FINDINGS/IMPRESSION: Longstem cemented right total knee arthroplasty prosthesis is again demonstrated and appears to be similar in alignment. Since prior study there has been loss of bone involving the distal lateral femoral metaphysis with subtle erosive changes present. These findings suggest possible hardware infection. Healed fracture deformity involving the fibula. There is soft tissue swelling and suspected joint effusion. No subcutaneous gas. Report Dictated on --- Final --- Dictated: 01/05/2021 8:45 pm Dictating Physician: MD ADAME VLADIMIR Signed Date and Time: 01/05/2021 8:50 pm Signed by: MD ADAME VLADIMIR Transcribed Date and Time: 01/05/2021 8:45 [facility] Work Phone: [facility], [facility] Incoming Radiology Results From [facility] - 01/05/2021 8:51 PM EDT Patient Name: CHARLIE NGUYEN Diagnostic Radiology ACCESSION EXAM DATE/TIME PROCEDURE ORDERING PROVIDER [id number] 01/05/2021 20:28 EDT CR Knee 3 Views Right [id number] KIAN SILVA CPT code [address] Reason For Exam (CR Knee 3 Views Right) R knee pain, swelling, recent surgery Report CLINICAL INDICATION: Right knee pain and swelling. TECHNIQUE: Three views of the right knee COMPARISON: 11/04/2019 FINDINGS/IMPRESSION: Longstem cemented right total knee arthroplasty prosthesis is again demonstrated and appears to be similar in alignment. Since prior study there has been loss of bone involving the distal lateral femoral metaphysis with subtle erosive changes present. These findings suggest possible hardware infection. Healed fracture deformity involving the fibula. There is soft tissue swelling and suspected joint effusion. No subcutaneous gas. Report Dictated on --- Final --- Dictated: 01/05/2021 8:45 pm Dictating Physician: MD ADAME VLADIMIR Signed Date and Time: 01/05/2021 8:50 pm Signed by: MD ADAME VLADIMIR Transcribed Date and Time: 01/05/2021 8:45 [facility] Phone: [facility] Work Phone: [place] 12-26-2020 [facility] HNO ID: [id number] Author: Alexandria Reddy MD Service: Hospital Medicine Author Type: Physician Type: Discharge Summary Filed: 12/26/2020 3:18 PM Note Text: DISCHARGE SUMMARY PATIENT NAME: Charlie Nguyen Code Status: Prior Highest Readmission Risk Score: 35 The 30 day readmissions risk score is derived from an internally validated risk model which evaluates patient level characteristics, utilization history, medication orders and lab results up until the day of discharge. Patients with a score of 40 or above are considered highest risk for readmission. Specific patient level drivers will be listed at the bottom of the summary. Admission Information Admission Information ADMIT DATE: 12/19/2020 DISCHARGE DATE: 12/26/2020 MY DOCTORS AND MEDICAL TEAM: My Main Hospital Doctor: Alexandria Reddy MD Primary Care Provider: Moreno Oates MD My Medical Team Members: Treatment Team: Attending Provider: Alexandria Reddy MD Consulting: Kurtis Danielson MD Primary Service: [place] [address] MY CONDITION AT DISCHARGE: Stable REASON I WAS IN THE HOSPITAL: Septic joint, UTI SUMMARY OF WHAT HAPPENED WHILE I WAS IN THE HOSPITAL: You had infection of the right knee, and underwent wash out. You were started on IV antibiotics. You were also found to have a UTI, treated with antibiotics as well. Other issues in the hospital include pain management requirement narcotic medication treatment. You are discharged back to your asissted living facility with IV antibiotics. Limited prescription of oxycodone is included. OTHER PROBLEMS/DIAGNOSIS: Principal Problem: Joint infection (HCC) Active Problems: Acute deep vein thrombosis (DVT) of right lower extremity (HCC) MS (multiple sclerosis) (HCC) Essential hypertension Current smoker Chronic pain of right knee Seizure (HCC) Dysuria Resolved Problems: * No resolved hospital problems. * OPERATIONS PERFORMED WHILE IN THE HOSPITAL: Right knee arthrotomy with irrigation and debridement (with polyethylene exchange)- 12/19/20 IMPORTANT TEST/PROCEDURES: XR chest XR knee TEST RESULTS NOT AVAILABLE AT THIS TIME: No pending results Discharge Disposition Discharge Disposition: Residential For Intermediate Care/Assisted Living Activity When You Leave the Hospital Resume pre-hospital activity Diet Instructions Resume your pre-hospital diet Follow Up Appointments PCP With: Your Primary Care Provider When: In 1 week Patient/Parents to call for appointment?: Yes Additional Provider to Provider Information: 65 Y F with hx of acute PE, DVT, on eliquis presenting with dysuria and acute right knee pain, treated for UTI and septic arthritis. ? Septic arthritis of R-knee S/P joint aspirate, fluid analysis suspicious for septic joint; s/p irrigation and debridement on 12/19/20 Ortho and ID on consult treated with vanc and zosyn; operative cultures w no growth antibiotics transitioned to Cefepime and vancomycin, to be continued until 01/30/21 Pain?meds PRN. required large amounts, frequently needing to adjust or hold due to hypotension. Discharged on Oxycodone 5mg q4 prn x 7 more days. 45 MEDD prescription. Needs CBC w/ diff, CMP, vancomycin trough, ESR, CRP every Thursday faxed to Sanjana Tarango at [phone] ? UTI UA with pyuria; culture?pos for Pseudomonas - patient unable to use quinolone due to quetiapine use - Treated with zosyn, completed course ? Hx of DVT and PE Dx in 2018; on eliquis. stable s/p R-knee wash Eliquis resumed on POD 6 MS (multiple sclerosis) (HCC) POA: Yes WC bound Urine and fecal incontinence LE parasthesia ? Essential hypertension POA: Yes Controlled - Continue Metoprolol; hold HCTZ? ? Current smoker POA: Yes - Nicotine patches ? Seizure (HCC) POA: Yes - Continue Depakote ? Depressoin/Anxiety - c/w paxil and seroquil ? ? Treatment Team: Attending Provider: Alexandria Reddy MD Consulting: Kurtis Danielson MD Primary Service: [facility] 1 Transitions of Care Critical Issues: NEW BASELINE FOR PATIENT: 1. LAB MONITORING NEEDED: Needs CBC w/ diff, CMP, vancomycin trough, ESR, CRP every Thursday faxed to Sanjana Tarango at [phone] SPECIALIST FOLLOW-UP: 1. infectious diseaes 2. Orthopedic surgery BEY MEDICATION CHANGES: - discontinue BP meds - Cefepime and vancomycin until 9/1 - Oxycodone x 7 days LABS AND PROCEDURES PENDING AT DISCHARGE: Test Results Not Yet Available from This Hospitalization: Please Review at Your Follow Up Appointment Order Current Status AFB CULTURE + STAIN (AK,AV,EU,FV,HL,AALIYAH,MM ,SP) Preliminary result ANAEROBE CULTURE (AV,EU,FV,HL,AALIYAH,MM,SP ) Preliminary result CULTURE BODY FLUID (EU,FV,HL,AALIYAH,MM,SP) Preliminary result FUNGAL CULTURE + SMEAR (EU,FV,HL,AALIYAH,MM,SP) Preliminary result TISSUE CULTURE + STAIN (AV,EU,FV,HL,AALIYAH,MM,SP ) Preliminary result TISSUE CULTURE + STAIN (AV,EU,FV,HL,AALIYAH,MM,SP ) Preliminary resu (more content not included)... [facility] NURSING PROGon 12-26-2020 NURSING PROG HNO ID: [id number] Author: Sandra Gonzales RN Service: ? Author Type: Registered Nurse Type: Nursing Progress Note Filed: 12/26/2020 6:51 PM Note Text: Nursing Progress Note Patient Name: Charlie Nguyen Patient [facility] Daily Note: Bedside report received, assumed care of the pt at this time, pt resting in bed, AANDO x3, denies needs at this time, bed alarm on for safety, call light within reach, will monitor. 0745 resting in bed, assessment as charted, pt denies any needs at this time, denies any CP or SOB, denies numbness or tingling, bed in low position and bed alarm on for safety, call light within reach, will monitor. 0823 Pt c/o of pain, medicated per pt's request, will monitor. 1226 Pt c/o of pain, medicated per pt's request, will monitor. 1425 PT in, pt refused therapy at this time. 1500 resting in bed, pt denies needs at this time, call light within reach, will monitor. 1650 Pt c/o of pain, medicated per pt's request, pt ok to be discharged, mixing picker tender scheduled for 1830, will monitor. 1845 discharge instructions given to the pt, pt educated on how and when to take pain meds, belongings with pt, transport here, pt left unit via cart, report called to Rose at [facility]. This note was completed by: Sandra Gonzales [facility] NUTRITIONon 12-26-2020 NUTRITION HNO ID: [id number] Author: Carmen Garner DTR Service: Nutrition Therapy Author Type: Grooving Machine Operator Type: Nutrition Filed: 12/26/2020 12:21 PM Note Text: NUTRITION THERAPY UNIFIED COMMUNICATIONS ENGINEER NOTE SERVICE DATE: 12/26/2020 SERVICE TIME: 10:18 AM Visit Type: Length of Stay Patient to emergency department for evaluation of right knee pain and swelling. Plan of Care: Follow-Up: Monitor weekly Nursing Admission Assessment Malnutrition Score: 1 Nutrition Intake: Diet Orders (From admission, onward) Start Ordered 12/19/202014 DIET REGULAR START NOW 12/19/202004 Average intake over: 3 days (Pt. consuming 75-100% of meals) Appetite: Good 100% at breakfast ~ 468 kcals and 21 grams of protein. Pt. eating and drinking without difficulty. GI Symptoms: None Anthropometrics: HT/WT/BMI 12/14/2019 12/19/2020 HEIGHT 5' 11 5' 11 WEIGHT 109.77 kg 105.235 kg BODY MASS INDEX 33.75 32.36 Body mass index is 32.36 kg/m?. Loss of lean body mass/visual muscle wasting: No Weight Change: Decreased (9.7# wt. loss~ 4%) Billing Type: Routine Care/15 min Number of Increments: 2 SIGNATURE: Carmen Garner DTR PATIENT NAME: Charlie Nguyen DATE: December 26, 2020 TIME: 12:18 PM PAGER: [phone] [facility] THERAPY NTon 12-26-2020 THERAPY NT HNO ID: [id number] Author: Brandi Carrasco OTR/L Service: Occupational Therapy Author Type: Occupational Therapist Type: Therapy (PT/OT/Speech/Resp) Filed: 12/26/2020 2:28 PM Note Text: OCCUPATIONAL THERAPY MISSED VISIT SERVICE DATE: 12/26/2020 SERVICE TIME: 1415 to 1420 ROOM: [address] Attempted Treatment. Patient not seen due to Declined (Pt declines getting up to the chair; wants to sleep as she reports she's been up since 6:30. Continue as able. Nsg notified.). SIGNATURE: Brandi Carrasco OTR/L PATIENT NAME: Charlie Nguyen DATE: December 26, 2020 TIME: 2:28 PM [facility] C difficile PCRon 12-25-2020 C difficile PCR Negative [facility] Comment on above: Performed By: #### C DPCR #### [facility] [address] [place], [place] [address] NURSING PROGon 12-25-2020 NURSING PROG HNO ID: [id number] Author: Eduardo Ley RN Service: Nursing Author Type: Registered Nurse Type: Nursing Progress Note Filed: 12/26/2020 2:51 AM Note Text: Nursing Progress Note Patient Name: Charlie Nguyen Patient Location: [place] [address] [address] Daily Note: 1900 Assumed Care of patient. Received bedside report from off going nurse. Patient's bed alarm is on and functioning. 2219 patient is assessed as charted and medicated per MAR This note was completed by: Eduardo Ley [facility] NURSING PROG HNO ID: [id number] Author: Turner Patten RN Service: Nursing Author Type: Registered Nurse Type: Nursing Progress Note Filed: 12/25/2020 12:04 PM Note Text: Nursing Progress Note Patient Name: Charlie Nguyen Patient Location: [place] [address] [address]P Daily Note:Assessment as charted. Patient denies any chest pain or shortness of breath. Patient is lethargic and disoriented. Patient did not believe she was in the hospital. Goal for the day is to control pain. Bed in low position, bed alarm on, call light in reach. Will continue to monitor. This note was completed by: Turner Patten [facility] NURSING PROG HNO ID: [id number] Author: Eduardo Ley RN Service: Nursing Author Type: Registered Nurse Type: Nursing Progress Note Filed: 12/25/2020 2:01 AM Note Text: Nursing Progress Note Patient Name: Charlie Nguyen Patient [facility]P Daily Note: 1900 Assumed Care of patient. Received bedside report from off going nurse. Patient's bed alarm is on and functioning. 2211 patient is aANDo x3, patient is assessed as charted and medicated per MAR This note was completed by: Eduardo Ley [facility] THERAPY NTon 12-25-2020 THERAPY NT HNO ID: [id number] Author: Nathaly Bueno PTA Service: Physical Therapy Author Type: A/C Technician Type: Therapy (PT/OT/Speech/Resp) Filed: 12/25/2020 12:51 PM Note Text: Attestation signed by Iris Pickens PT at 12/25/2020 2:47 PM I reviewed and agree with the documentation corresponding to this therapy visit. SIGNATURE: Iris Pickens, PT DATE: December 25, 2020 TIME: 2:47 PM PHYSICAL THERAPY MISSED VISIT SERVICE DATE: 12/25/2020 SERVICE TIME: 1000 to 1000 ROOM: [address] Attempted Treatment. Patient not seen due to (pt lethargic and with low BP per nurse). SIGNATURE: Nathaly Bueno PTA PATIENT NAME: Charlie Nguyen DATE: December 25, 2020 TIME: 12:51 PM [facility] THERAPY NT HNO ID: [id number] Author: ARTHUR Madrid Service: Occupational Therapy Author Type: Chief Of Vital Statistics Type: Therapy (PT/OT/Speech/Resp) Filed: 12/25/2020 12:27 PM Note Text: Attestation signed by GYPSY Lemon at 12/25/2020 3:33 PM Collaboration with ARTHUR occurred and documentation corresponding to this therapy visit was reviewed. ANJUM Lemon OTR/L OCCUPATIONAL THERAPY MISSED VISIT SERVICE DATE: 12/25/2020 SERVICE TIME: 1000 to 1000 ROOM: [address] Attempted Treatment. Patient not seen due to (per nurse pt lethargic and confused with low blood pressure hold this AM). SIGNATURE: ARTHUR Madrid PATIENT NAME: Charlie Nguyen DATE: December 25, 2020 TIME: 12:27 PM Normal [facility] Vancomycinon 12-25-2020 Vancomycin 13.3 ug/mL Normal 10.0-20.0 [facility] Comment on above: Result Comment: Refe rence ranges and high/low indicator flags are provided as general guidelines only. The treating physician must determine appropriate target levels/dosing based on the specific clinical situation. Basic Metabolic Panlon 12-24 Anion gap [Moles/Vol] 12 mmol/L Normal 9-18 [facility] Calcium [Mass/Vol] 9.4 mg/dL Normal 8.5-10.2 [facility] Chloride [Moles/Vol] 93 mmol/L Low 97-105 [facility] CO2 [Moles/Vol] 30 mmol/L Normal 22-33 [facility] Creatinine [Mass/Vol] 0.82 mg/dL Normal 0.58-0.96 [facility] eGFR- Amer. >60 Normal [facility] eGFR-All Other Races >60 Normal [facility] Comment on above: Result Comment: eGFR (Estimated GFR) Units of measure: mL/min/1.73 meters squared eGFR is derived from the reexpressed MDRD Study equation using the following parameters: serum creatinine, age, gender and race. The creatinine assay has been calibrated to be traceable to IDMS. An eGFR <60 mL/min/1.73m2 for >3 months is consistent with chronic kidney disease. Refer to KDOQI guidelines for clinical interpretation. In patients with unstable renal function, e.g. those with acute kidney injury, the eGFR may not accurately reflect actual GFR. Glucose [Mass/Vol] 85 mg/dL Normal 74-99 [facility] Potassium [Moles/Vol] 4.2 mmol/L Normal 3.7-5.1 [facility] Sodium [Moles/Vol] 135 mmol/L Low 136-144 [facility] Urea nitrogen [Mass/Vol] 7 mg/dL Normal 7-21 [facility] CASE MANAGEMon 12-24-2020 CASE MANAGEM HNO ID: [id number] Author: Laura Silva RN Service: Case Management Author Type: Registered Nurse Type: Care Mgt Progress Note Filed: 12/24/2020 2:16 PM Note Text: CARE MANAGEMENT PROGRESS NOTE SERVICE DATE: 12/24/2020 SERVICE TIME: 11:41 AM LOS: 5 days Needs Prior to Discharge: Discharge Transportation;Other: See Comment (updated COVID) Patient m[facility] resident at [facility]. Facility aware that PICC has been placed and patient will be on IV ATB - they are still able to accept patient back. Patient will need an updated COVID and transport arranged prior to d/c. I messaged Dr. Reddy to see when she is anticipating d/c so we can get new COVID ordered. CM to continue to follow for d/c planning needs. ADDENDUM 2:15pm - Dr. Reddy states that she will place repeat COVID order. ID saw patient today and will give final recs on ATB at d/c tomorrow (12/25). SIGNATURE: Laura Silva RN PATIENT NAME: Charlie Nguyen DATE: December 24, 2020 TIME: 11:41 AM PAGER/CONTACT #: [phone] Normal [facility] Coronavirus 2019on 1 SARS-CoV-2 (COVID-19) RNA TANVIR+probe Ql (Unsp spec) UPPER RESPIRATORY TRACT SWAB Normal [facility] Comment on above: Performed By: #### C OVID ####[facility] [place], [place] [phone] SARS-CoV-2 (COVID-19) RNA TANVIR+probe Ql (Unsp spec) Negative for COVID19 (SARS CoV2) by RT-PCR or equivalent method. Normal Negative for COVID19 (SARS CoV2) by RT-PCR or equivalent method. [facility] Comment on above: Result Comment: This test was developed and its performance characteristics determined by [facility]. This test has been authorized by FDA under an Emergency Use Authorization (EUA). This test has been validated in accordance with the FDA's Guidance Document Policy for Diagnostics Testing in Laboratories Certified to Perform High Complexity Testing under CLIA prior to Emergency use Authorization for Coronavirus Disease 2019 during the Public Health Emergency issued on July 30, 2019. Test performed by [facility], [facility], [address] [place], [place] [address]. Performed By: #### C OVID ####[facility] [address] [place], [place] [phone] NURSING PROGon 12-24-2020 NURSING PROG HNO ID: [id number] Author: Turner Patten RN Service: Nursing Author Type: Registered Nurse Type: Nursing Progress Note Filed: 12/24/2020 11:33 AM Note Text: Nursing Progress Note Patient Name: Charlie Nguyen Patient Location: [place] [address] Daily Note:Assessment as charted. Patient resting in bed. Patient denies any chest pain or shortness of breath. Patient complains of 8/10 pain in right knee, medicated for pain. Goal for the day is to control pain and increase mobility. Bed in low position, bed alarm on, call light in reach. Will continue to monitor. This note was completed by: Turner Patten [facility] THERAPY NTon 12-24-2020 THERAPY NT HNO ID: [id number] Author: KEV Sánchez/Catrachito Service: Occupational Therapy Author Type: Occupational Therapist Type: Therapy (PT/OT/Speech/Resp) Filed: 12/24/2020 5:51 PM Note Text: Occupational Therapy Treatment SERVICE DATE: 12/24/2020 SERVICE TIME: 1025 to 1050 ROOM: [address] Recommended Discharge Disposition: Subacute/SNF Recommended Discharge Disposition Due to: Patient requires daily, facility-based rehabilitation from at least one discipline due to:;ADL impairment resulting in caregiver dependence;anticipate community discharge/previous community dweller;decline in functional status requiring daily skilled care Anticipated Discharge Needs: Physical Assist at Home Physical Assist at Home for: Transfers;Cleaning;La undry;Meals;Medicatio n Management;Safety;Ariela f Care;Shopping;Wheelch air Mobility;Transportati on OT 6 Clicks Score: 16 Precautions/Activity Restrictions: Weight Bearing Restrictions;Bed/Raffaele r Alarm;Fall Risk Precaution/Activity Restriction Comments: KI Isolation Type: None Extremity With Weight Bearing Restricted: Right Lower Extremity Right Lower Extremity Weight Bearing Status: WBAT Current Hospital Course: Pt is a 65 year old female admitted for R knee pain with R knee revision and I AND D Reason for Hospital Admission: Right knee pain Relevant Past Medical History: MS, HTN, chronic pain Response to Therapy Interventions: Limited participation, Low activity tolerance, Requires additional time to complete activities, Requires encouragement to complete activities Occupational Therapy Problem List: Education Deficit;Pain;Safety Deficits;Impaired Self Care;Decreased Activity Tolerance;Decreased Strength;Functional Mobility Impairment;Balance Impaired Cognition/Communicati on Deficits Responsiveness: Drowsy Follows Commands: 2-step Commands Attention Deficits: Distractible, Divided Executive Function Deficits: Safety Awareness, Insight to Deficits, Sequencing Sequencing Deficit: Moderate impairment Insight to Deficits: Moderate impairment Safety Awareness Deficit: Moderate impairment Treatment Interventions: Strengthening;Joint Mobility;Self Care / Home Management;Education; Balance Training;Functional Mobility Training;Neuromuscula r Re-education;Pain Management Home Environment Patient Lives With: Facility Care (LTC at [facility]) Assistance Available: 24 Hour Entry To Home: No Stairs Tub/Shower Type: walk in shower Laundry: facility does laundry Equipment Owned: Wheelchair (reporting has own WC; manual) Prior Functional Level: Required Assistance Assistance Required With: Cleaning;Laundry;Safe ty;Self Care;Shopping;Transpo rtation;Medication Management;Meals Prior Functional Level Comments: pt questionable historian; reporting from [facility]; reporting pivot transfers only to WC, bed, shower chair, etc; has own WC; reporting using feet for steering and propulsion; non-ambulatory Patient Report: needs encouragement but agreeable CURRENT FUNCTIONAL STATUS: Most recent performance Current Activities of Daily Living Assist Level Additional Information Feeding Set Up Grooming Stand By Assistance (for combing h air and brush teeth sitting in chair) Bathing Upper Body Contact Guard Assistance Bathing Lower Body Maximal Assistance Dressing Upper Body Contact Guard Assistance (needs encouragement) Dressing Lower Body Maximal Assistance Toileting Total Assistance incont bowel Instrumental Activities of Daily Living Assist Level Additional Information Meal/Beverage Prep Cleaning Laundry Medication Management with Strategies Functional Mobility Assist Level Additional Information Rolling Supine to Sit Minimal Assistance Sit to Supine Scooting Contact Guard Assistance Sit to Stand Moderate Assistance (x2) partial stands 4 times for bowel incontinence/posterio r toilet hygiene Stand to Sit Moderate Assistance (x2) Bed to Chair Moderate Assistance Sit Pivot (x2, mod cues for sequencing, ARMATURE VARNISHER) Toilet/Commode Shower Functional Mobility (non ambulatory) Blank hendrix indicate activity not attempted Balance: Static Sitting;Dynamic Sitting Static Sitting Balance: Good Patient able to maintain balance without handhold support, limited postural sway Dynamic Sitting Balance: Good Patient accepts moderate challenge, able to maintain balance while picking up object off floor Activity Tolerance: Sitting Activity Sitting Activity: EOB for adl/tolerance Sitting Activity Tolerance (in minutes): 10 Learning/Educational Needs: Discharge Plan;Functional Activities/Mobility;P ain Management;Plan of Care;Precautions;Reha bilitation Techniques and Procedures;Safety;Ariela f Care Goals for Plan of Care: Goals: Patient will demonstrate progress to optimize self-care activities, cognitive and/or coping to maximize function upon discharge. Lower Body Bathing with: Minimal Assistance Lower Body Dressing with: Minimal Assistan (more content not included)... [facility] THERAPY NT HNO ID: [id number] Author: Toshia Velázquez PT Service: Physical Therapy Author Type: Physical Therapist Type: Therapy (PT/OT/Speech/Resp) Filed: 12/24/2020 1:14 PM Note Text: Physical Therapy Treatment SERVICE DATE: 12/24/2020 SERVICE TIME: 1025 to 1050 ROOM: [address] Recommended Discharge Disposition Comments: rec trial SNF to rehab knee revision; transition back to LTC following Anticipated Discharge Needs: Physical Assist at Home Physical Assist at Home for: Transfers;Cleaning;La undry;Meals;Medicatio n Management;Safety;Ariela f Care;Shopping;Wheelch air Mobility;Transportati on Recommended Discharge Equipment: No equipment needs anticipated PT 6 Clicks Score: 12 Precautions/Activity Restrictions: Weight Bearing Restrictions;Bed/Raffaele r Alarm;Fall Risk Precaution/Activity Restriction Comments: KI Isolation Type: None Extremity With Weight Bearing Restricted: Right Lower Extremity Right Lower Extremity Weight Bearing Status: WBAT Current Hospital Course: Pt is a 65 year old female admitted for R knee pain with R knee revision and I AND D Reason for Hospital Admission: Right knee pain Relevant Past Medical History: MS, HTN, chronic pain Response to Therapy Interventions: Limited participation, Low activity tolerance, Pain Continue skilled needs due to: Functional mobility/skill impairments, Safety concerns Physical Therapy Problem List: Education Deficit;Pain;Safety Deficits;Decreased Activity Tolerance;Decreased Strength;Functional Mobility Impairment Treatment Interventions: Education;Self Care / Home Management;Energy Conservation Training;Joint Mobility;Strengthenin g;Functional Mobility Training;Balance Training;Neuromuscula r Re-education Plan for next visit: Bed mobility, Chair transfer training, Exercise instruction/handout, Sitting balance, Standing Tolerance Home Environment Patient Lives With: Facility Care (LTC at [facility]) Assistance Available: 24 Hour Entry To Home: No Stairs Tub/Shower Type: walk in shower Laundry: facility does laundry Equipment Owned: Wheelchair (reporting has own WC; manual) Prior Functional Level: Required Assistance Assistance Required With: Cleaning;Laundry;Safe ty;Self Care;Shopping;Transpo rtation;Medication Management;Meals Prior Functional Level Comments: pt questionable historian; reporting from [facility]; reporting pivot transfers only to WC, bed, shower chair, etc; has own WC; reporting using feet for steering and propulsion; non-ambulatory Patient Report: Pt agreeable to PT. Nursing states ok to see pt. CURRENT FUNCTIONAL STATUS: Most recent performance Current Functional Mobility Assist Level Additional Information Rolling Supine to Sit Minimal Assistance Sit to Supine (Pt up in chair post session) Scooting Minimal Assistance Sit to Stand Moderate Assistance (x 2) Stand to Sit Moderate Assistance (x 2) Bed to Chair Moderate Assistance (x 2) Bed To Chair Transfer Type: Sit Pivot Bed To Chair Transfer Equipment: (arm in arm assist; pt uses arm rest for UE support) Toilet/Commode Gait Stairs Curb Step Car Transfer Blank hendrix indicate activity not attempted Balance: Static Sitting;Dynamic Sitting;Static Standing;Dynamic Standing Static Sitting Balance: Good Patient able to maintain balance without handhold support, limited postural sway Dynamic Sitting Balance: Fair Patient accepts minimal challenge, able to maintain balance while turning head/trunk Static Standing Balance: Poor Patient requires handhold support and moderate to maximal assistance to maintain position Dynamic Standing Balance: Poor Patient unable to accept challenge or move without loss of balance -HLM: 4: Move to chair / commode Learning/Educational Needs: Discharge Plan;Equipment;Functi onal Activities/Mobility;P maxine of Care;Precautions;Reha bilitation Techniques and Procedures;Safety Goals for Plan of Care: Patient /Caregiver Goals: Go Home Goals: Patient will demonstrate progress to optimize functional mobility, maximize activity tolerance and endurance to maximize function upon discharge. Able to perform HEP with: Stand By Assistance Transfer supine to/from sit with: Stand By Assistance Transfer: able to complete stand pivot transfer with SBA Progress Toward Goals: Progressing as expected Rehab Potential: Fair Patient will be discontinued from Physical Therapy when no further skilled needs are identified in this setting. PLAN: PT Frequency: 2 times per week Plan of Care developed with: Patient TREATMENT INTERVENTIONS: Therapy Diagnosis: Reduced mobility-other;Decrea sed activities of daily living (ADL);Muscle Weakness (generalized) Interventions Provided: Therapeutic Activity (33083) Therapeutic Activity (92218) Treatment Minutes: 25 $ Therapeutic Activity (15475) Billed Units: 2 units Training AND education provided in: Bed mobility, Benefits of in-hospital mobility, Discharge planning, Equipme (more content not included)... Normal [facility] Vancomycinon 12-24-2020 Vancomycin 24.5 ug/mL High 10.0-20.0 [facility] Comment on above: Result Comment: Refe rence ranges and high/low indicator flags are provided as general guidelines only. The treating physician must determine appropriate target levels/dosing based on the specific clinical situation. CBCon 12-23-2020 Absolute nRBC <0.01 Normal <0.01 [facility] Erythrocyte distribution width (RBC) [Ratio] 14.6 % Normal 11.5-15.0 [facility] Hematocrit (Bld) [Volume fraction] 35.9 % Low 36.0-46.0 [facility] Hemoglobin (Bld) [Mass/Vol] 11.7 g/dL Normal 11.5-15.5 [facility] MCH 32.2 pG Normal 26.0-34.0 [facility] MCHC (RBC) [Mass/Vol] 32.6 g/dL Normal 30.5-36.0 [facility] MCV (RBC) [Entitic vol] 98.9 fL Normal 80.0-100.0 [facility] Platelet mean volume (Bld) [Entitic vol] 10.0 fL Normal 9.0-12.7 [facility] Platelets (Bld) [#/Vol] 213 10*3/uL Normal 150-400 [facility] RBC (Bld) [#/Vol] 3.63 10*6/uL Low 3.90-5.20 [facility] WBC (Bld) [#/Vol] 5.70 10*3/uL Normal 3.70-11.00 [facility] NURSING PROGon 12-23-2020 NURSING PROG HNO ID: [id number] Author: Toshia Frye RN Service: Nursing Author Type: Registered Nurse Type: Nursing Progress Note Filed: 12/24/2020 5:51 AM Note Text: Nursing Progress Note Patient Name: Charlie Nguyen Patient Location: [place] [address] 1900- Bedside report received, assumed care of pt. Possessions and call light within reach, bed alarm on and functioning. Safety maintained. Pt inquiring about her pain medication, educated regarding schedule of ordered pain regimen. Pain board updated and reviewed with pt. 1953- Assessment as charted, pt A/Ox3. Denies chest pain, shortness of breath, headache, and n/v. Breathing regular and unlabored on RA. Aquacel dressing to the right knee is c/d/i. Pt denies altered sensation. Cap refill WNL. Toes are warm and mobile. Knee immobilizer in place. Call light and possessions within reach, bed alarm on and functioning. Bed locked and in the lowest position with side rails up x3. Safety maintained. Denies any further needs at this time. Will continue to monitor. 0005- pt upset that she is not able to take her two oxycodone at the same time as her valium. Educated regarding the importance of staggering medications that can cause FLIGHT OPERATIONS COORDINATOR depression. Pt states she is able to take them together at the custodial. Educated regarding hospital policy due to safety reasons. Pt remains upset. Not receptive to education at this time. 0300- prior assessment remains unchanged, will continue to monitor. This note was completed by: Toshia Frye [facility] NURSING PROG HNO ID: [id number] Author: Terry Moreau RN Service: Nursing Author Type: Registered Nurse Type: Nursing Progress Note Filed: 12/23/2020 12:14 PM Note Text: Nursing Progress Note ? Patient Name: Charlie Nguyen Patient Location: [place] [address]/[facility]-P Daily note: 0700 Assumed care of patient. Received report from previous RN. Patient asleep in bed. Safety check completed. 739 Assessment completed and charted refer to NPR. Patient oriented x 3. Appears agitated but otherwise cooperative. Medicated appropriately per JUL. PICC dressing remains C/D/I and flushes well with positive blood return. R knee remains swollen. Knee immobilizer in place. External catheter in place for incontinence. Vitals remain stable. Will continue to monitor. This note was completed by: Terry Davidson RN BSN [facility] NURSING PROG HNO ID: [id number] Author: Eduardo Ley RN Service: Nursing Author Type: Registered Nurse Type: Nursing Progress Note Filed: 12/23/2020 2:54 AM Note Text: Nursing Progress Note Patient Name: Charlie Nguyen Patient [facility]: [facility]P Daily Note: 0 Assumed Care of patient. Received bedside report from off going nurse. Patient's bed alarm is on and functioning. 2140 patient is assessed as charted, patient is upset about medication regimen, educated patient on scheduled versus PRN medications. Patient still upset at this time, gave alternative interventions to medication and patient denied all options. Patient medicated per MAR This note was completed by: Eduardo Ley [facility] Renal Function Panelon 12-23 Albumin [Mass/Vol] 3.1 g/dL Low 3.9-4.9 [facility] Anion gap [Moles/Vol] 7 mmol/L Low 9-18 [facility] Calcium [Mass/Vol] 8.1 mg/dL Low 8.5-10.2 [facility] Chloride [Moles/Vol] 100 mmol/L Normal 97-105 [facility] CO2 [Moles/Vol] 33 mmol/L Normal 22-33 [facility] Creatinine [Mass/Vol] 0.80 mg/dL Normal 0.58-0.96 [facility] eGFR- Amer. >60 Normal [facility] eGFR-All Other Races >60 Normal [facility] Comment on above: Result Comment: eGFR (Estimated GFR) Units of measure: mL/min/1.73 meters squared eGFR is derived from the reexpressed MDRD Study equation using the following parameters: serum creatinine, age, gender and race. The creatinine assay has been calibrated to be traceable to IDMS. An eGFR <60 mL/min/1.73m2 for >3 months is consistent with chronic kidney disease. Refer to KDOQI guidelines for clinical interpretation. In patients with unstable renal function, e.g. those with acute kidney injury, the eGFR may not accurately reflect actual GFR. Glucose [Mass/Vol] 83 mg/dL Normal 74-99 [facility] Phosphate [Mass/Vol] 5.2 mg/dL High 2.7-4.8 [facility] Potassium [Moles/Vol] 4.8 mmol/L Normal 3.7-5.1 [facility] Sodium [Moles/Vol] 140 mmol/L Normal 136-144 [facility] Urea nitrogen [Mass/Vol] 7 mg/dL Normal 7-21 [facility] THERAPY NTon 12-23-2020 THERAPY NT HNO ID: [id number] Author: Steffen Jeff PTA Service: Physical Therapy Author Type: A/C Technician Type: Therapy (PT/OT/Speech/Resp) Filed: 12/23/2020 1:48 PM Note Text: Attestation signed by Deja Strickland PT at 12/23/2020 1:52 PM I reviewed and agree with the assessment as documented above. SIGNATURE: Deja Strickland PT DATE: December 23, 2020 TIME: 1:52 PM PHYSICAL THERAPY MISSED VISIT SERVICE DATE: 12/23/2020 SERVICE TIME: 1355 to 1355 ROOM: [address] Attempted Treatment. Patient not seen due to (pt. reports that she needs to get cleaned up after having a BM. PCNA notified. Will attempt to return this PM as able.). SIGNATURE: Steffen Jeff PTA PATIENT NAME: Charlie Nguyen DATE: December 23, 2020 TIME: 1:48 PM Normal [facility] CBCon 12-22-2020 Absolute nRBC <0.01 Normal <0.01 [facility] Erythrocyte distribution width (RBC) [Ratio] 15.0 % Normal 11.5-15.0 [facility] Hematocrit (Bld) [Volume fraction] 39.5 % Normal 36.0-46.0 [facility] Hemoglobin (Bld) [Mass/Vol] 12.1 g/dL Normal 11.5-15.5 [facility] MCH 31.0 pG Normal 26.0-34.0 [facility] MCHC (RBC) [Mass/Vol] 30.6 g/dL Normal 30.5-36.0 [facility] MCV (RBC) [Entitic vol] 101.3 fL High 80.0-100.0 [facility] Platelet mean volume (Bld) [Entitic vol] 10.3 fL Normal 9.0-12.7 [facility] Platelets (Bld) [#/Vol] 217 10*3/uL Normal 150-400 [facility] RBC (Bld) [#/Vol] 3.90 10*6/uL Normal 3.90-5.20 [facility] WBC (Bld) [#/Vol] 7.69 10*3/uL Normal 3.70-11.00 [facility] CONSULT PROGon 12-22-2020 CONSULT PROG HNO ID: [id number] Author: Luli Richards MD Service: Infectious Disease Author Type: Physician Type: Consult Progress Note Filed: 12/22/2020 10:35 AM Note Text: INFECTIOUS DISEASES PROGRESS NOTE PATIENT NAME: Charlie Nguyen SERVICE DATE: 12/22/2020 SERVICE TIME: 10:28 AM REASON FOR CONSULTATION Prosthetic joint infection right knee, history of MSSA Pseudomonas UTI SUBJECTIVE States she was having irritative voiding symptoms before admission and has seen a urologist in the past for recurrent UTI Knee burning OBJECTIVE PHYSICAL EXAM: Afebrile, VSS General appearance: sleepy, not toxic, in no acute distress Lungs: clear Heart: S1 S2 normal. Abdomen: Soft, non-tender. Right knee dressing in place, no surrounding erythema DATA: Laboratory: WBC: 7690 Creatinine: 0.81 Vanco level this AM = 11.7 Microbiology: Knee -- no growth Urine -- Pseudomonas ASSESSMENT: Day # 3 post-op revision right knee arthroplasty. Cultures negative. Vanco level down to 11.7 Pseudomonas UTI. Organism is susceptible to quinolones, but these are contraindicated because of her quetiapine use PLAN: Resume vancomycin at 1.25 g IV every 12h Continue Zosyn Dr Tarango will reassess and provide final recommendations Sunday 12/24 -- please call sooner prn SIGNATURE: Luli Richards MD DATE: December 22, 2020 TIME: 10:28 AM Normal [facility] NURSING PROGon 12-22-2020 NURSING PROG HNO ID: [id number] Author: Terry Moreau RN Service: Nursing Author Type: Registered Nurse Type: Nursing Progress Note Filed: 12/22/2020 3:56 PM Note Text: Nursing Progress Note ? Patient Name: Charlie Nguyen Patient Location: [place] [address]/[address] Daily note: 0700 Assumed care of patient. Received report from previous RN. Patient awake in bed. Ortho at bedside evaluating patient. Safety check completed at this time. 929 Assessment completed and charted refer to NPR. Patient oriented x 3. PICC line dressing C/D/I with minor sanginqeous drainage noted. Flushes with positive blood return confirmed. Given oxycodone for pain control. Vitals remain stable at this time. Will continue to monitor. This note was completed by: Terry Davidson CLOTHES DRIER REPAIRER [facility] NURSING PROG HNO ID: [id number] Author: Sanjay Isaac RN Service: Nursing Author Type: Registered Nurse Type: Nursing Progress Note Filed: 12/22/2020 5:47 AM Note Text: Nursing Progress Note Patient Name: Charlie Nguyen Patient Location: [place] [address]/[facility]-P Daily Note: 1900 Assumed care of pt. AANDOx3. Call light within reach. Bed locked in lowest position. Bed alarm on. Denies further needs at this time. 2044 Assessment and vitals as charted. Denies chest pain, shortness of breath, dizziness, and numbness/tingling. Scheduled meds administered per eMAR. Call light within reach. Bed locked in lowest position with bed alarm activated. Safety maintained. 0300 Pt prior assessment unchanged. Respirations even and unlabored. Safety maintained. This note was completed by: Sanjay Isaac [facility] Renal Function Panelon 12-22 Albumin [Mass/Vol] 3.0 g/dL Low 3.9-4.9 [facility] Anion gap [Moles/Vol] 8 mmol/L Low 9-18 [facility] Calcium [Mass/Vol] 8.5 mg/dL Normal 8.5-10.2 [facility] Chloride [Moles/Vol] 99 mmol/L Normal 97-105 [facility] CO2 [Moles/Vol] 31 mmol/L Normal 22-33 [facility] Creatinine [Mass/Vol] 0.81 mg/dL Normal 0.58-0.96 [facility] eGFR- Amer. >60 Normal [facility] eGFR-All Other Races >60 Normal [facility] Comment on above: Result Comment: eGFR (Estimated GFR) Units of measure: mL/min/1.73 meters squared eGFR is derived from the reexpressed MDRD Study equation using the following parameters: serum creatinine, age, gender and race. The creatinine assay has been calibrated to be traceable to IDMS. An eGFR <60 mL/min/1.73m2 for >3 months is consistent with chronic kidney disease. Refer to KDOQI guidelines for clinical interpretation. In patients with unstable renal function, e.g. those with acute kidney injury, the eGFR may not accurately reflect actual GFR. Glucose [Mass/Vol] 79 mg/dL Normal 74-99 [facility] Phosphate [Mass/Vol] 5.1 mg/dL High 2.7-4.8 [facility] Potassium [Moles/Vol] 4.9 mmol/L Normal 3.7-5.1 [facility] Sodium [Moles/Vol] 138 mmol/L Normal 136-144 [facility] Urea nitrogen [Mass/Vol] 7 mg/dL Normal 7-21 [facility] Vancomycinon 12-22-2020 Vancomycin 11.7 ug/mL Normal 10.0-20.0 [facility] Comment on above: Result Comment: Refe rence ranges and high/low indicator flags are provided as general guidelines only. The treating physician must determine appropriate target levels/dosing based on the specific clinical situation. CBCon 12-21-2020 Absolute nRBC <0.01 Normal <0.01 [facility] Erythrocyte distribution width (RBC) [Ratio] 14.6 % Normal 11.5-15.0 [facility] Hematocrit (Bld) [Volume fraction] 33.9 % Low 36.0-46.0 [facility] Hemoglobin (Bld) [Mass/Vol] 10.6 g/dL Low 11.5-15.5 [facility] MCH 30.6 pG Normal 26.0-34.0 [facility] MCHC (RBC) [Mass/Vol] 31.3 g/dL Normal 30.5-36.0 [facility] MCV (RBC) [Entitic vol] 98.0 fL Normal 80.0-100.0 [facility] Platelet mean volume (Bld) [Entitic vol] 10.6 fL Normal 9.0-12.7 [facility] Platelets (Bld) [#/Vol] 202 10*3/uL Normal 150-400 [facility] RBC (Bld) [#/Vol] 3.46 10*6/uL Low 3.90-5.20 [facility] WBC (Bld) [#/Vol] 9.04 10*3/uL Normal 3.70-11.00 [facility] CONSULT PROGon 12-21-2020 CONSULT PROG HNO ID: [id number] Author: Sybil Randhawa RPh Service: Pharmacy Author Type: Pharmacist Type: Consult Progress Note Filed: 12/21/2020 3:16 PM Note Text: PHARMACY VANCOMYCIN DOSING NOTE Patient Name: Charlie Nguyen Admission Date: 12/19/2020 Date of Consult: 12/21/2020 Time of Consult: 3:15 PM Indication: Skin/Soft tissue infection Goal Range: 10-20 mcg/mL RECOMMENDATIONS/PLAN: Pharmacy consulted for vancomycin dosing for Charlie Nguyen, a 65 year old, female who is being treated with vancomycin for PJI 1. The infectious diseases physician will manage the vancomycin dosing. The pharmacy vancomycin dosing service will sign off. Thank you for allowing us to participate in this patient's care. Please contact pharmacy if questions. Sybil Randhawa [facility] [id number] Normal [facility] NURSING PROGon 12-21-2020 NURSING PROG HNO ID: [id number] Author: Kimberly Headley RN Service: Nursing Author Type: Registered Nurse Type: Nursing Progress Note Filed: 12/21/2020 3:23 PM Note Text: Nursing Progress Note Patient Name: Charlie Nguyen Patient [facility]P Daily Note: 0700 Assumed patient care, bedside report given from off going RN. Pain board reviewed. Bed alarm on, safety maintained. Reminded patient to call for assistance. Call light within reach. Denies further needs at this time, will continue to monitor. 0740 C/o medicated per JUL, pain board reviewed and updated. Pt verbalized understanding. No further needs. 1000 Assessment as charted. AANDO x3. Denies CP, SOB, N/V, N/T. R knee dressing with scant drainage, immobilizer remains on. Toes warm and mobile, sensation intact, cap refill within 3 seconds. No further needs. Reminded patient to call for assistance. Safety maintained. 1500 prior assessment unchanged, will continue to monitor. This note was completed by: Kimberly Headley [facility] NURSING PROG HNO ID: [id number] Author: Eduardo Ley RN Service: Nursing Author Type: Registered Nurse Type: Nursing Progress Note Filed: 12/20/2020 11:28 PM Note Text: Nursing Progress Note Patient Name: Charlie Nguyen Patient Location: [facility] Daily Note: 1900 Assumed Care of patient. Received bedside report from off going nurse. Patient's bed alarm is on and functioning. Will continue to monitor. 2108 patient is aANDo x3, patient is assessed as charted and medicated per JUL This note was completed by: Eduardo Ley [facility] PT EDon 12-21-2020 PT ED HNO ID: [id number] Author: Chaitanya Champange RN Service: PICC Team Author Type: Registered Nurse Type: Patient Education Filed: 12/21/2020 12:46 PM Note Text: PATIENT EDUCATION TOPIC: PROCEDURE / SURGERY: Procedure/Surgery: PICC INSERTION PATIENT NAME: Charlie Nguyen PATIENT LOCATION: [facility] READINESS TO LEARN COGNITIVE ABILITY: Alert and oriented MOTIVATION TO LEARN: Interested FAMILY SUPPORT: Unable to assess - Family not present INSTRUCTION PROVIDED TO: Patient PATIENT LEARNS BEST BY: Individual Instruction Written Instruction - Hand-outs Verbal Instruction FACTORS AFFECTING LEARNING: None PHYSICAL LIMITATIONS AFFECTING LEARNING: None LEARNING RESPONSE DIAGNOSIS: ADULT: Infection PATIENT/FAMILY RESPONSE: Verbalizes understanding of: INFECTION MANAGEMENT-Signs and symptoms of an infection and importance of contacting the physician POST-PROCEDURE INSTRUCTIONS-Correct actions to take to reduce post procedure complications PRE-PROCEDURE INSTRUCTIONS-Correct action to take to follow pre-procedure instructions PATIENT SAFETY PRINCIPLES METHOD OF INSTRUCTION: Individual instruction FOLLOW-UP PLAN: Reinforce - Repeat previous content Recommend - Recommend continued instruction and follow up as directed INSTRUCTIONAL AIDS USED: Picc Line Book SUPPLEMENTAL MATERIAL PROVIDED TO PATIENT: None REFERRAL (RECOMMENDATION): None Electronically Signed By: Chaitanya Champagne [facility] Renal Function Panelon 12-21 Albumin [Mass/Vol] 3.0 g/dL Low 3.9-4.9 [facility] Anion gap [Moles/Vol] 8 mmol/L Low 9-18 [facility] Calcium [Mass/Vol] 8.7 mg/dL Normal 8.5-10.2 [facility] Chloride [Moles/Vol] 102 mmol/L Normal 97-105 [facility] CO2 [Moles/Vol] 28 mmol/L Normal 22-33 [facility] Creatinine [Mass/Vol] 0.64 mg/dL Normal 0.58-0.96 [facility] eGFR- Amer. >60 Normal [facility] eGFR-All Other Races >60 Normal [facility] Comment on above: Result Comment: eGFR (Estimated GFR) Units of measure: mL/min/1.73 meters squared eGFR is derived from the reexpressed MDRD Study equation using the following parameters: serum creatinine, age, gender and race. The creatinine assay has been calibrated to be traceable to IDMS. An eGFR <60 mL/min/1.73m2 for >3 months is consistent with chronic kidney disease. Refer to KDOQI guidelines for clinical interpretation. In patients with unstable renal function, e.g. those with acute kidney injury, the eGFR may not accurately reflect actual GFR. Glucose [Mass/Vol] 99 mg/dL Normal 74-99 [facility] Phosphate [Mass/Vol] 3.0 mg/dL Normal 2.7-4.8 [facility] Potassium [Moles/Vol] 4.1 mmol/L Normal 3.7-5.1 [facility] Sodium [Moles/Vol] 138 mmol/L Normal 136-144 [facility] Urea nitrogen [Mass/Vol] 7 mg/dL Normal - [facility] THERAPY NTon 12-21-2020 THERAPY NT HNO ID: [id number] Author: Deja Strickland PT Service: Physical Therapy Author Type: Physical Therapist Type: Therapy (PT/OT/Speech/Resp) Filed: 12/21/2020 2:10 PM Note Text: Physical Therapy Evaluation SERVICE DATE: 12/21/2020 SERVICE TIME: 1355 to 1355 ROOM: [address] PHYSICAL THERAPY MISSED VISIT SERVICE DATE: 12/21/2020 SERVICE TIME: 1355 to 1355 ROOM: [address] Attempted Evaluation. Patient not seen due to Declined. Patient requesting to rest as she reports she had a busy morning. Will defer PT session today. SIGNATURE: Deja Strickland PT PATIENT NAME: Charlie Nguyen DATE: December 21, 2020 TIME: 2:09 PM Normal [facility] THERAPY NT HNO ID: [id number] Author: Toshia Montano OT/Catrachito Service: Occupational Therapy Author Type: Occupational Therapist Type: Therapy (PT/OT/Speech/Resp) Filed: 12/21/2020 11:31 AM Note Text: OCCUPATIONAL THERAPY MISSED VISIT SERVICE DATE: 12/21/2020 SERVICE TIME: 1131 to 1131 ROOM: [address] Attempted Treatment. Patient not seen due to Test/Procedure. SIGNATURE: Toshia Montano OT/Catrachito PATIENT NAME: Charlie Nguyen DATE: December 21, 2020 TIME: 11:31 AM Normal [facility] Vancomycinon 12-21-2020 Vancomycin 23.3 ug/mL High 10.0-20.0 [facility] Comment on above: Result Comment: Refe rence ranges and high/low indicator flags are provided as general guidelines only. The treating physician must determine appropriate target levels/dosing based on the specific clinical situation. CASE MGT INIT ASSESon 2020 CASE MGT INIT ASS HNO ID: [id number] Author: Denise Gale RN Service: Case Management Author Type: Registered Nurse Type: Care Mgt Initial Assessment Filed: 12/20/2020 11:01 AM Note Text: CARE MANAGEMENT: ASSESSMENT AND DISCHARGE PLAN SERVICE DATE: December 20, 2020 SERVICE TIME: 10:57 AM PRIMARY CARE PHYSICIAN: Moreno Oates MD ADMISSION STATUS: Inpatient Needs Prior to Discharge: To Be Determined;Discharge Transportation;Discha rge Prescriptions MEDICAL: [place] Patient/Representativ e Stated Goals: To have reduction in symptoms;To have reduction in pain Health Insurance: Medicaid Health Issues Impacting Discharge Plan: None Last Discharge Date: 11/11/19 Is this Within the Past 30 days? Last discharge within 30 days: No Advance Directive: Current Advance Directive: Health Care Power of Wool Merchant In Chart: Yes Up To Date and Valid: Yes Health LiteracyHow often do you need to have someone help you when you read instructions, pamphlets, or other written material from your doctor or pharmacy? : 3 - Sometimes How confident are you filling out medical forms by yourself?: 3 - Somewhat If Patient scores > 3 on either question, the following interventions were put into place:: Forms of communication used with patient and family;Gave Patient the opportunity to ask questions;Use of plain language and active listening with Patient and family Baseline Mental Status Prior to this Illness what was the patient's Baseline Mental Status?: Alert AND Oriented Prior to this illness, has anyone described the patient having any of the following behaviors?: Not Applicable Relationship of the informant to the patient:: Self Functional Status: Needs Assistance Does Patient Currently Receive Any Community Services or Home Care?: Halfway Has the Patient Been in a Halfway Facility in the Past 30 days?: Yes SOCIAL: Living Arrangements: Nursing Facility Facility Information: [facility] Financial Resources: Disabled Primary Contact: Extended Emergency Contact Information Primary Emergency Contact: PatrickCallum Mobile Relation: Son Supportive Patient Contact:: Unable to assess at this time Caregiver AssessmentCaregiver is ready, willing and able to meet the patient's needs as recommended by the inter-professional team:: No Caregiver needed Does the patient have an acute stroke diagnosis, or has the patient had a stroke during this admission?: No Patient's perception of need for this admission: joint infection Medication Adherance I am convinced of the importance of my prescription medication: 0 - Agree Completely I worry that my prescription medication will do more harm than good to me : 0 - Disagree Completely I feel financially burdened by my yig-or-izzuqu expenses for my prescription medication:: 0 - Disagree Completely Risk Score: 0 Patient is categorized as: Low risk < 2 Are you interested in bedside delivery of your medications? No Is Patient Psychosocially Complex?: No ASSESSMENT AND PLAN: Medical Needs: Medical Needs: None Psychosocial Needs: Psychosocial Needs: None FREEDOM OF CHOICE EXPLAINED: Macy of Choice Given: Yes Level of Care Discussed: Halfway Facility Financial Disclosure Provided: Yes Provider List: Rehab Facility (Patient is LTC at [facility]) POTENTIAL TRANSITION PLANS Halfway Facility/Intermediate Care Facility Met with patient at bedside. She was transferred to us from [facility] ED for a joint infection. 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 Return referral sent. Therapy scheduled to evaluate patient today. Will await return response from [facility] for any barriers to return. Cultures pending obtained from OR. Case management will continue to follow and assist with discharge planning needs. SIGNATURE: Denise Gale RN PATIENT NAME: Charlie Nguyen DATE: December 20, 2020 TIME: 10:57 AM PAGER/CONTACT #: [phone] [facility] CONSULTon 12-20-2020 CONSULT HNO ID: [id number] Author: Sanjana Tarango MD Service: Infectious Disease Author Type: Physician Type: Consults Filed: 12/20/2020 1:30 PM Note Text: INFECTIOUS DISEASE INITIAL CONSULT PATIENT NAME: Charlie Nguyen SERVICE DATE: 12/20/2020 SERVICE TIME: 1:23 PM REASON FOR CONSULT: Prosthetic joint infection REQUESTING PHYSICIAN: Maricel Levy PRIMARY CARE PHYSICIAN: Moreno Oates MD HPI Ms. 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 For patient's last PJI, she was treated with ~5 weeks cefazolin, then she was placed on PO doxycycline suppression. She did not take any suppressive therapy. About 4-5 days ago, she developed increasing swelling, pain and redness of the right knee. Sent to ED from nursing facility. She denies any associated fevers or chills. She had arthrocentesis with 78071 nucleated cells. She went to OR for IANDD with polyethylene exchange 12/19. Operative cultures are pending. She is currently on vancomycin and zosyn. Patient is also complaining of dysuria that started about 2 days ago. Urine culture is pending Denies cough, chest pain, shortness of breath, nasal congestion, headache, sore throat, abdominal pain, diarrhea ROS: As per HPI. Otherwise 14 system review is negative. PAST MEDICAL HISTORY Diagnosis Date - Basal cell carcinoma - Current smoker 05/28/2016 - H/O chest tube placement 2013 R side due to punctured lung - Ischemic colitis (HCC) - Lumbar disc herniation 1983 - MRSA (methicillin resistant Staphylococcus aureus) - MS (multiple sclerosis) (HCC) - Osteoarthritis of right knee PAST SURGICAL HISTORY Procedure Laterality Date - COLONOSCOPY 06/2014 ischemic colitis - HYSTERECTOMY HX 1987 - JOINT REPLACEMENT HX - PAST SURGICAL HISTORY OF surgery for fractured rib - TOTAL KNEE REPLACEMENT Right 06/06/2016 Knee replacement, total - TOTAL KNEE REPLACEMENT Left 01/28/2017 Knee replacement, total FAMILY HISTORY Problem Relation Age of Onset - Breast Cancer Mother - Kidney Disease Father kidney cancer - other (drug overdose) Daughter 38 from fentanyl Social History Tobacco Use - Smoking status: Current Every Day Smoker Packs/day: 1.00 Types: Cigarettes Start date: 1969 - Smokeless tobacco: Never Used Substance Use Topics - Alcohol use: No - Drug use: No MEDICATIONS: Prior to Admission Medications: acetaminophen (TYLENOL) 500 mg tablet, Take 1,000 mg by mouth every 6 hours as needed for Pain., Disp: , Rfl: pregabalin (LYRICA) 100 mg capsule, Take 1 capsule by mouth twice daily for 30 days., Disp: 60 capsule, Rfl: 0 diazePAM (VALIUM) 5 mg tablet, Take 1 tablet by mouth every 12 hours as needed for up to 30 days., Disp: 60 tablet, Rfl: 0 omeprazole (PRILOSEC) 40 mg capsule, Take 1 capsule by mouth once daily., Disp: 90 capsule, Rfl: 2 QUEtiapine (SEROQUEL) 50 mg tablet, Take 1 tablet by mouth daily at bedtime., Disp: 30 tablet, Rfl: 0 diclofenac sodium (VOLTAREN) 1 % topical gel, Apply 4 g to affected area four times daily. To back, Disp: 100 g, Rfl: 5 apixaban (ELIQUIS) 5 mg tab(s), Take 1 tablet by mouth twice daily., Disp: 60 tablet, Rfl: 5 hydroCHLOROthiazide (HYDRODIURIL, ESIDRIX) 25 mg tablet, Take 1 tablet by mouth once daily., Disp: 30 tablet, Rfl: 5 metoprolol tartrate, short acting, (LOPRESSOR) 100 mg tablet, Take 1 tablet by mouth twice daily., Disp: 60 tablet, Rfl: 5 PARoxetine (PAXIL) 40 mg tablet, Take 1 tablet by mouth once daily., Disp: 30 tablet, Rfl: 5 valproic acid (DEPAKENE) 250 mg capsule, Take 1 capsule by mouth three times daily., Disp: 90 capsule, Rfl: 2 sodium chloride (NaCl) 0.9% injection solution, Inject 10 mL intravenously once daily. 10ml before and after dose, 10ml before lab draw, 20ml after lab draw, up to 30ml for sluggish IV, 10ml between bag changes and 10ml daily for maintenance, Disp: , Rfl: potassium chloride ER (K-DUR, KLOR-CON) 20 mEq tablet, Take 1 tablet by mouth twice daily., Disp: 60 tablet, Rfl: 1 pramoxine-hydrocortis one (PROCTOFOAM-HC) rectal foam, 1 Applicator by RECTAL route twice daily., Disp: 20 g, Rfl: 1 COMPOUNDED PRESCRIPTION, Power Mobility Device scooter. Face to face evaluation 12/30/2018 Diagnosis: (T84.018S, Z96.659) Failure of total knee replacement, sequela (primary encounter diagnosis) (G35) Multiple sclerosis (HCC) (T84.498D) Mechanical complication of internal orthopedic device, implant or graft, subsequent encounter (M25.561, G89.29) Chronic pain of right knee (M17.11) Osteoarthritis of right knee, unspecified osteoarthritis type (R53.1) Generalized weakness (Z74.09) Requires scooter for mobility Length of need: 99 mos/ lifetime., Disp: 1 Device, Rfl: 0 ascorbic acid, vitamin C, (VITAMIN C) 500 mg tablet, Take 1 tablet by mouth twice daily with meals., Disp: (more content not included)... [facility] NURSING PROGon 12-20-2020 NURSING PROG HNO ID: [id number] Author: Sandra Gonzales RN Service: ? Author Type: Registered Nurse Type: Nursing Progress Note Filed: 12/20/2020 6:48 PM Note Text: Nursing Progress Note Patient Name: Charlie Nguyen Patient Location: [facility]/-454-P Daily Note: Bedside report received, assumed care of the pt at this time, pt resting in bed, AANDO x3, denies needs at this time, bed alarm on for safety, call light within reach, will monitor. 0812 Pt c/o of pain, medicated per pt's request, will monitor. 0820 resting in bed, assessment as charted, pt denies any needs at this time, denies any CP or SOB, numbness or tingling, bed in low position and bed alarm on for safety, call light within reach, will monitor. 1435 Pt c/o of pain, medicated per pt's request, will monitor. 1500 resting in bed, pt denies needs at this time, call light within reach, will monitor. 1840 Pt c/o of pain, medicated per pt's request, will monitor. This note was completed by: Sandra Gonzales [facility] NURSING PROG HNO ID: [id number] Author: Eduardo Ley RN Service: Nursing Author Type: Registered Nurse Type: Nursing Progress Note Filed: 12/20/2020 1:20 AM Note Text: Nursing Progress Note Patient Name: Charlie Nguyen Patient Location: [facility]/454-P Daily Note: 2000 Assumed Care of patient. Received report from PACU Patient's bed alarm is on and functioning. Patient oriented to call system and room. 2103 patient is assessed as charted and medicate per MAR This note was completed by: Eduardo Ley [facility] THERAPY NTon 12-20-2020 THERAPY NT HNO ID: [id number] Author: Arelis Castanon, PT Service: Physical Therapy Author Type: Physical Therapist Type: Therapy (PT/OT/Speech/Resp) Filed: 12/20/2020 3:10 PM Note Text: Physical Therapy Evaluation SERVICE DATE: 12/20/2020 SERVICE TIME: 1040 to 1110 ROOM: [address] Recommended Discharge Disposition Comments: rec trial SNF to rehab knee revision; transition back to LTC following Anticipated Discharge Needs: Physical Assist at Home Physical Assist at Home for: Transfers;Cleaning;La undry;Meals;Medicatio n Management;Safety;Ariela f Care;Shopping;Wheelch air Mobility;Transportati on Recommended Discharge Equipment: No equipment needs anticipated PT 6 Clicks Score: 14 Precautions/Activity Restrictions: Weight Bearing Restrictions;Bed/Raffaele r Alarm;Fall Risk Precaution/Activity Restriction Comments: KI Extremity With Weight Bearing Restricted: Right Lower Extremity Right Lower Extremity Weight Bearing Status: WBAT Current Hospital Course: Pt is a 65 year old female admitted for R knee pain with R knee revision and I AND D Reason for Hospital Admission: Right knee pain Relevant Past Medical History: MS, HTN, chronic pain Response to Therapy Interventions: Limited participation, Low activity tolerance, Pain Continue skilled needs due to: Functional mobility/skill impairments, Safety concerns Physical Therapy Problem List: Education Deficit;Pain;Safety Deficits;Decreased Activity Tolerance;Decreased Strength;Functional Mobility Impairment Treatment Interventions: Education;Self Care / Home Management;Energy Conservation Training;Joint Mobility;Strengthenin g;Functional Mobility Training;Balance Training;Neuromuscula r Re-education Plan for next visit: Bed mobility, Chair transfer training, Exercise instruction/handout, Sitting balance, Standing Tolerance Home Environment Patient Lives With: Facility Care (LTC at [facility]) Assistance Available: 24 Hour Entry To Home: No Stairs Tub/Shower Type: walk in shower Laundry: facility does laundry Equipment Owned: Wheelchair (reporting has own WC; manual) Prior Functional Level: Required Assistance Assistance Required With: Cleaning;Laundry;Safe ty;Self Care;Shopping;Transpo rtation;Medication Management;Meals Prior Functional Level Comments: pt questionable historian; reporting from [facility]; reporting pivot transfers only to WC, bed, shower chair, etc; has own WC; reporting using feet for steering and propulsion; non-ambulatory Patient Report: RN ok'd to see; pt agreeable to attempt PT CURRENT FUNCTIONAL STATUS: Most recent performance Current Functional Mobility Assist Level Additional Information Rolling Supine to Sit Contact Guard Assistance Sit to Supine (OOB in chair) Scooting Contact Guard Assistance Sit to Stand Minimal Assistance;Additional Information (x2) does not attain full standing; low pivot transfer only Stand to Sit Minimal Assistance (x2) Bed to Chair Minimal Assistance;Additional Information (x2) Bed To Chair Transfer Type: Sit Pivot Bed To Chair Transfer Equipment: (arm in arm assist; pt uses arm rest for UE support) pt completes low pivot transfer into chair; normally reporting slide pivot transfers Toilet/Commode Gait Additional Information pt non-ambulatory Stairs Curb Step Car Transfer Blank hendrix indicate activity not attempted JH-HLM: 4: Move to chair / commode Learning/Educational Needs: Discharge Plan;Equipment;Functi onal Activities/Mobility;P maxine of Care;Precautions;Reha bilitation Techniques and Procedures;Safety Goals for Plan of Care: Patient /Caregiver Goals: Go Home Goals: Patient will demonstrate progress to optimize functional mobility, maximize activity tolerance and endurance to maximize function upon discharge. Able to perform HEP with: Stand By Assistance Transfer supine to/from sit with: Stand By Assistance Transfer: able to complete stand pivot transfer with SBA Rehab Potential: Fair Patient will be discontinued from Physical Therapy when no further skilled needs are identified in this setting. PLAN: PT Frequency: 2 times per week Plan of Care developed with: Patient TREATMENT INTERVENTIONS: Therapy Diagnosis: Reduced mobility-other;Decrea sed activities of daily living (ADL);Muscle Weakness (generalized) Interventions Provided: Evaluation;Therapeuti c Activity (95940) $ Evaluation-Low (74363) Billed Units: 1 unit Therapeutic Activity (75870) Treatment Minutes: 15 $ Therapeutic Activity (52373) Billed Units: 1 unit Training AND education provided in: Bed mobility, Benefits of in-hospital mobility, Discharge planning, Equipment, Positioning, Precautions/restricti ons, Role of Physical Therapy, Transfers The following therapeutic skills were used: Activity dosing, Cues for sequencing/proper technique for activity, Cuing tactile, Cuing verbal, Cuing visual, Physical assist Total Timed Code Treatment Minutes: 15 Total Treatment Time ( (more content not included)... [facility] THERAPY NT HNO ID: [id number] Author: KEV Colunga/Catrachito Service: Occupational Therapy Author Type: Occupational Therapist Type: Therapy (PT/OT/Speech/Resp) Filed: 12/20/2020 12:40 PM Note Text: Occupational Therapy Evaluation SERVICE DATE: 12/20/2020 SERVICE TIME: 899 to 929 ROOM: [address] Recommended Discharge Disposition: Subacute/SNF Recommended Discharge Disposition Due to: Patient requires daily, facility-based rehabilitation from at least one discipline due to:;ADL impairment resulting in caregiver dependence;anticipate community discharge/previous community dweller;decline in functional status requiring daily skilled care OT 6 Clicks Score: 18 Precautions/Activity Restrictions: Weight Bearing Restrictions;Bed/Raffaele r Alarm;Fall Risk (knee immobilizer) Extremity With Weight Bearing Restricted: Right Lower Extremity Right Lower Extremity Weight Bearing Status: WBAT Current Hospital Course: Pt is a 65 year old male admitted for R knee pain with R knee revision and I AND D Reason for Hospital Admission: Right knee pain Relevant Past Medical History: MS, HTN, chronic pain Response to Therapy Interventions: Limited participation, Low activity tolerance, Requires additional time to complete activities, Requires encouragement to complete activities Continue skilled needs due to: Functional impairment Occupational Therapy Problem List: Education Deficit;Pain;Safety Deficits;Impaired Self Care;Decreased Activity Tolerance;Decreased Strength;Functional Mobility Impairment;Balance Impaired Cognition/Communicati on Deficits Responsiveness: Awake Follows Commands: 2-step Commands, 3-step Commands Attention Deficits: Distractible, Divided Treatment Interventions: Strengthening;Joint Mobility;Self Care / Home Management;Education; Balance Training;Functional Mobility Training;Neuromuscula r Re-education;Pain Management Plan for next visit: Bathing training, Bed mobility, Chair/commode transfer training, Dressing training, Fall prevention, Pain management, Positioning training, Sit to stand transfers, Sitting balance, Sitting tolerance, Standing balance, Standing tolerance Home Environment Patient Lives With: Facility Care ([facility] (LTC ?)) Assistance Available: 24 Hour Entry To Home: No Stairs Tub/Shower Type: walk in shower Laundry: facility does laundry Equipment Owned: Cane;Commode-Bedside; Wheeled Walker;Wheelchair Prior Functional Level: Required Assistance Assistance Required With: Cleaning;Laundry;Meal s;Safety;Self Care;Shopping;Transpo rtation Prior Functional Level Comments: Pt is a questionable historian; Pt has been at [facility] since 10/2019 per chart; using w/c for mobility with squat pivot transfers; assist w/self care and dep w/iadl; Patient Report: Pt agreed to therapy with encouragement and RN cleared pt to participate CURRENT FUNCTIONAL STATUS: Most recent performance Current Activities of Daily Living Assist Level Additional Information Feeding Set Up Grooming Set Up Bathing Upper Body Set Up Bathing Lower Body Moderate Assistance Dressing Upper Body Set Up Dressing Lower Body Moderate Assistance Toileting Total Assistance Instrumental Activities of Daily Living Assist Level Additional Information Meal/Beverage Prep Cleaning Laundry Medication Management with Strategies Functional Mobility Assist Level Additional Information Rolling Supine to Sit Contact Guard Assistance Sit to Supine Scooting Contact Guard Assistance Sit to Stand Additional Information squat pivot; unable to come to full stand Stand to Sit Minimal Assistance Bed to Chair Minimal Assistance (x 2) Sit Pivot Toilet/Commode Shower Functional Mobility Blank hendrix indicate activity not attempted Hand Dominance: Right Range of Motion: WFL Strength: WFL Pt instructed on the importance of sitting up in a chair; Pt required encouragement to participate in transfer to chair. Pt with increase pain in R knee with movement and appeared anxious to complete functional mobility. Balance: Static Sitting;Dynamic Sitting Static Sitting Balance: Good Patient able to maintain balance without handhold support, limited postural sway Dynamic Sitting Balance: Good Patient accepts moderate challenge, able to maintain balance while picking up object off floor Activity Tolerance: Sitting Activity Sitting Activity: EOB Sitting Activity Tolerance (in minutes): 5 Learning/Educational Needs: Discharge Plan;Functional Activities/Mobility;P ain Management;Plan of Care;Precautions;Reha bilitation Techniques and Procedures;Safety;Ariela f Care Goals for Plan of Care: Goals: Patient will demonstrate progress to optimize self-care activities, cognitive and/or coping to maximize function upon discharge. Lower Body Bathing with: Minimal Assistance Lower Body Dressing with: Minimal Assistance Chair Transfer with: Minimal Assistance Toilet Transfer with: Minimal Ass (more content not included)... [facility] AFB Cult and Stainon 021 AFB Cult and Stain Sp. Request/Comment: - Specimen received in sterile container. Smear Result - No acid fast bacilli seen by fluorochrome stain Culture Result - No Acid Fast Bacilli isolated after 42 days [facility] Comment on above: Performed By: #### A ####[facility], [place] [id number] ANES POSTPROC EVALon 021 ANES POSTPROC EVAL HNO ID: [id number] Author: Angela Womack MD Service: Anesthesiology Author Type: Anesthesiologist Type: Anesthesia Postprocedure Evaluation Filed: 12/19/2020 7:47 PM Note Text: POST ANESTHESIA EVALUATION NOTE : 1955 Procedure Summary Date: 12/19/20 Room / Location: [place] [address] / OR Anesthesia Start: 152 Anesthesia Stop: 1830 Procedure: REVISION JOINT TOTAL KNEE ONE COMPONENT (Right Leg) 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]) Surgeons: Scott Parrish MD Responsible Provider: Angela Womack MD Anesthesia Type: general ASA Status: 4 - Emergent Anesthesia Type: general Last vitals Vitals Value Taken Time BP 107/59 12/19/20 1930 Temp 36.6 ?C (97.9 ?F) 12/19/20 1823 Pulse 50 12/19/204 Resp 14 12/19/20 194 SpO2 93 % 12/19/201943 Vitals shown include unvalidated device data. Post Anesthesia Patient Status Patient Evaluation: PACU. PACU/ICU Patient Condition: stable. Anticipated Disposition: phase 2 then home. Neurological Status: aware and responsive. Pulmonary Status: breathing comfortably on room air Airway Control: returned to baseline unsupported. Cardiovascular Status: stable. Pain Management: clinically adequate Postoperative Hydration: acceptable. Intraoperative Events: no significant anesthesia events Post Operative Nausea/Vomiting Status: no significant post operative nausea or vomiting Anesthetic Observations: Recommendation: continue current plan of care. No complications documented. SIGNATURE: Angela Womack MD PATIENT NAME: Charlie Nguyen DATE: December 19, 2020 TIME: 7:47 PM CSN: [id number] [facility] ANES PRE-OPon 12-19-2020 ANES PRE-OP HNO ID: [id number] Author: Sulaiman Castro MD Service: Anesthesiology Author Type: Anesthesiologist Type: Anesthesia Preprocedure Evaluation Filed: 12/19/2020 2:06 PM Note Text: ANESTHESIOLOGY DAY OF SURGERY NOTE : 1955 Procedure(s) (LRB): REVISION JOINT TOTAL KNEE ONE COMPONENT (Right) Surgeon(s): Scott Parrish MD Estimated body mass index is 32.36 kg/m? as calculated from the following: Height as of this encounter: 180.3 cm (5' 11). Weight as of this encounter: 105.2 kg (232 lb). Most recent hematocrit and potassium results: Hematocrit 40.6 12/19/2020 Potassium 3.8 12/19/2020 Relevant Problems CARDIO (+) Acute deep vein thrombosis (DVT) of right lower extremity (HCC) (+) Essential hypertension GI (+) Gastroesophageal reflux disease without esophagitis NEURO-PSYCH (+) Headache (+) History of pulmonary embolism (+) Seizure (HCC) Other (+) Septic arthritis (HCC) I - PHYSICAL EVALUATION AIRWAY Patient intubated: No. Tracheostomy tube not present Mallampati: II. TM distance: >3 FB. Neck ROM: full ROM without neurological symptoms. Mouth opening: adequate. Short neck: no. Thick neck: no DENTAL Dental findings: teeth intact. II - ANESTHESIA PLAN ASA Score: 4; emergent. Anesthetic Plan: general Airway type: ETT The patient is not a current smoker. NPO Status: adequate Administration of chronic beta amelia medication not planned. Monitoring plan: standard ASA. Postoperative analgesic plan: parenteral or oral opioids. Anesthetic Risks, Benefits, Alternatives, Personnel Discussed. Consent obtained from: patient and family.Patient / Surrogate agrees to blood products: Yes DNR status not reviewed with patient and/or family prior to surgery. Significant changes in the patient condition since the History and Physical, not otherwise documented in primary service progress note: no. Potential Anesthesia issues that may suggest increased risk of complications or contraindication to planned procedure: none. Vitals Value Taken Time BP 122/67 12/19/20 1402 Pulse 67 12/19/20 1403 Resp 16 12/19/20 1350 Temp 36.8 ?C (98.2 ?F) 12/19/20 1350 SpO2 97 % 12/19/20 1403 Vitals shown include unvalidated device data. Facility-Administered Medications as of 12/19/2020 Medication Dose Route Frequency - [MAR Hold due to Transfer] acetaminophen 1,000 mg tab(s) (TYLENOL) 1,000 mg ORAL q 6 H PRN - [MAR Hold due to Transfer] diazePAM 5 mg tab(s) (VALIUM) 5 mg ORAL q 12 H PRN - [MAR Hold due to Transfer] valproic acid 250 mg CUP (DEPAKENE) 250 mg ORAL TID - [MAR Hold due to Transfer] ondansetron 4 mg tab(s) (ZOFRAN) 4 mg ORAL q 8 H PRN - [MAR Hold due to Transfer] QUEtiapine 50 mg tablet (SEROquel) 50 mg ORAL AT BEDTIME - [MAR Hold due to Transfer] metoprolol tartrate (short acting) 100 mg tab(s) (LOPRESSOR) 100 mg ORAL BID - [MAR Hold due to Transfer] pramoxine-hydrocortis one 1-1 % 1 Applicator (PROCTOFOAM-HC) 1 Applicator RECTAL BID - [MAR Hold due to Transfer] polyethylene glycol 3350 17 g packet (MIRALAX, GLYCOLAX) 17 g ORAL DAILY - [MAR Hold due to Transfer] pantoprazole DR 40 mg tab(s) (PROTONIX) 40 mg ORAL DAILY - [MAR Hold due to Transfer] diclofenac 1 % 4 g topical gel (VOLTAREN) 4 g TOPICAL QID - [MAR Hold due to Transfer] NaCl 0.9% iv flush bag 20 mL INTRAVENOUS PRN - [MAR Hold due to Transfer] sodium chloride 0.9 % (flush) 3-5 mL (BD POSIFLUSH) 3-5 mL INTRAVENOUS q 12 H - [COMPLETED] fentaNYL 50 mcg/mL 50 mcg injection (SUBLIMAZE) 50 mcg INTRAVENOUS ONCE - [MAR Hold due to Transfer] nicotine 21 mg/24 hr 1 Patch (NICODERM) 1 Patch TRANSDERMAL DAILY - [MAR Hold due to Transfer] nicotine -- REMOVE patch OTHER DAILY - [MAR Hold due to Transfer] nicotine - verify patch OTHER q 8 H - [MAR Hold due to Transfer] PARoxetine 40 mg tab(s) (PAXIL) 40 mg ORAL DAILY - [MAR Hold due to Transfer] potassium chloride ER 20 mEq tab(s) (K-DUR, KLOR-CON) 20 mEq ORAL BID - [MAR Hold due to Transfer] pregabalin 100 mg cap(s) (LYRICA) 100 mg ORAL BID - [COMPLETED] oxyCODONE-acetaminoph en 5-325 mg 1 tablet (PERCOCET) 1 tablet ORAL ONCE Outpatient Medications as of 12/19/2020 Medication Sig - acetaminophen (TYLENOL) 500 mg tablet Take 1,000 mg by mouth every 6 hours as needed for Pain. - pregabalin (LYRICA) 100 mg capsule Take 1 capsule by mouth twice daily for 30 days. - diazePAM (VALIUM) 5 mg tablet Take 1 tablet by mouth every 12 hours as needed for up to 30 days. - omeprazole (PRILOSEC) 40 mg capsule Take 1 capsule by mouth once daily. - QUEtiapine (SEROQUEL) 50 mg tablet Take 1 tablet by mouth daily at bedtime. - diclofenac sodium (VOLTAREN) 1 % topical gel Apply 4 g to affected area four times daily. To back - apixaban (ELIQUIS) 5 mg tab(s) Take 1 tablet by mouth twice daily. - hydroCHLOROthiazide (HYDRODIURIL, ESIDRIX) 25 mg tablet Take 1 tablet by mouth once daily. - metoprolol tartrate, short acting, (more content not included)... Normal [facility] APTTon 12-19-2020 aPTT Coag (Bld) [Time] 33.3 s High 23.0-32.4 [facility] Comment on above: Result Comment: Unfr actionated Heparin Therapeutic Ranges: Standard Heparin Nomogram: 53 to 78 seconds (anti-Xa level of 0.3 to 0.7 U/ml) Low Dose/ACS Nomogram: 49 to 67 seconds (anti-Xa level of 0.2 to 0.5 U/ml) Stroke Treatment Nomogram: 49 to 67 seconds (anti-Xa level of 0.2 to 0.5 U/ml) Note: The APTT therapeutic range has been determined for the current lot of laboratory APTT reagent in use throughout the [facility]. Anaerobe Cultureon Anaerobe Culture Sp. Request/Comment: - Specimen received in sterile container. Culture Result - Negative for anaerobes. No Cutibacterium (Propionibacterium) acnes isolated. [facility] Comment on above: Performed By: #### A NACUL ####[facility] [address], [place] [phone] BRIEF OP NOTon 12-19-2020 BRIEF OP NOT HNO ID: [id number] Author: Trish Moran DO Service: Orthopaedic Surgery Author Type: Resident Type: Brief Op Note Filed: 12/19/2020 6:29 PM Note Text: ORTHOPAEDIC SURGERY BRIEF OPERATIVE NOTE Patient Name: Charlie Nguyen Account #: Data Unavailable Date of Procedure: 12/19/2020 LOG ID: [id number] Incision/Procedure Start Time: 4:26 PM Incision Close/Procedure End Time: 6:06 PM Pre-Op/Pre-Procedure Diagnosis: Prosthetic joint infection (HCC) [T84.50XA] Post-Op/Post-Procedur e Diagnosis: Same Surgeon(s) and [place]ok Machine Operator(s): Surgeon(s) and Role: * Scott Parrish MD - Primary * Trish Moran DO - Resident - Assisting * Chris Finn MD - Fellow No Additional Staff Procedure(s): Procedure(s) (LRB): Right knee irrigation and debridement, revision of modular parts Anesthesia: General Findings: see op note Implant(s): Implant Name Type Inv. Item Serial No. Orange Picking Supervisor Lot No. LRB No. Used Action BUSHING FEMORAL MODULAR ROTATE HINGE KNEE - [id number] Joint - Knee BUSHING FEMORAL MODULAR ROTATE HINGE KNEE [employer] [id number] Right 1 Implanted BUSHING FEMORAL MODULAR ROTATE HINGE KNEE - [id number] Joint - Knee BUSHING FEMORAL MODULAR ROTATE HINGE KNEE [employer] [id number] Right 1 Implanted COMPONENT XS SMALL MEDIUM TIBIAL ROTATE HINGE KNEE - [id number] Joint - Knee COMPONENT XS SMALL MEDIUM TIBIAL ROTATE HINGE KNEE [employer] [id number] Right 1 Implanted INSERT GMRS [id number] S1 S2 TIBIAL MODULAR ROTATE HINGE PROXIMAL - [id number] Joint - Knee INSERT GMRS [id number] S1 S2 TIBIAL MODULAR ROTATE HINGE PROXIMAL STRY-[facility] [employer] [id number] Right 1 Implanted SLEEVE TIBIAL MODULAR ROTATE HINGE KNEE - [id number] Joint - Knee SLEEVE TIBIAL MODULAR ROTATE HINGE KNEE [employer] Right 1 Implanted INSERT GMRS NEUTRAL BUMPER MODULAR ROTATE HINGE KNEE PROXIMAL - [id number] Joint - Knee INSERT GMRS NEUTRAL BUMPER MODULAR ROTATE HINGE KNEE PROXIMAL STRY-[facility] [employer] Right 1 Implanted AXLE FEMORAL MODULAR ROTATE HINGE KNEE - [id number] Joint - Knee AXLE FEMORAL MODULAR ROTATE HINGE KNEE [employer] Right 1 Implanted Estimated Blood Loss: 50 mls Specimen(s): synovial fluid and synovium sent for cultures Drains: None Complications: none Charlie Nguyen tolerated the procedure well and was returned to the recovery room in stable condition. Post-Operative Plan: Weight Bearing Status / ROM: WBAT, knee immobilizer Dressing: Aquacel DVT ppx: Lovenox 40 daily x 5 weeks Antibiotics: broad spectrum, ID consult Pain control: multimodal PT/OT Case management for discharge planning. Discharge/Follow-up: Follow up with Dr. Parrish in office 2 weeks after surgery. Trish Moran DO Orthopedic Surgery Resident December 19, 2020 6:20 PM Normal [facility] Basic Metabolic Panlon 12-19 Anion gap [Moles/Vol] 9 mmol/L Normal 9-18 [facility] Calcium [Mass/Vol] 9.0 mg/dL Normal 8.5-10.2 [facility] Chloride [Moles/Vol] 102 mmol/L Normal 97-105 [facility] CO2 [Moles/Vol] 26 mmol/L Normal 22-33 [facility] Creatinine [Mass/Vol] 0.81 mg/dL Normal 0.58-0.96 [facility] eGFR- Amer. >60 Normal [facility] eGFR-All Other Races >60 Normal [facility] Comment on above: Result Comment: eGFR (Estimated GFR) Units of measure: mL/min/1.73 meters squared eGFR is derived from the reexpressed MDRD Study equation using the following parameters: serum creatinine, age, gender and race. The creatinine assay has been calibrated to be traceable to IDMS. An eGFR <60 mL/min/1.73m2 for >3 months is consistent with chronic kidney disease. Refer to KDOQI guidelines for clinical interpretation. In patients with unstable renal function, e.g. those with acute kidney injury, the eGFR may not accurately reflect actual GFR. Glucose [Mass/Vol] 73 mg/dL Low 74-99 [facility] Potassium [Moles/Vol] 3.8 mmol/L Normal 3.7-5.1 [facility] Sodium [Moles/Vol] 137 mmol/L Normal 136-144 [facility] Urea nitrogen [Mass/Vol] 15 mg/dL Normal 7-21 [facility] Body Fluid Cult/Stnon 2020 Body Fluid Cult/Stn Sp. Request/Comment: - Specimen received in sterile container. Smear Result - No organisms seen Many Polymorphonuclear leukocytes Culture Result - No growth 14 days [facility] Comment on above: Performed By: #### B FCUL ####[facility] [id number] [place] [id number] [phone] Body Fluid Cult/Stn Sp. Request/Comment: - Specimen received in sterile container. Smear Result - No organisms seen Many Polymorphonuclear leukocytes Culture Result - No growth 5 days [facility] Comment on above: Performed By: #### B FCUL ####[address] [phone] CASE MANAGEMon 12-19-2020 CASE MANAGEM HNO ID: [id number] Author: Jossy Warner RN Service: Case Management Author Type: Registered Nurse Type: Care Mgt Progress Note Filed: 12/19/2020 1:48 PM Note Text: CARE MANAGEMENT PROGRESS NOTE SERVICE DATE: 12/19/2020 SERVICE TIME: 1:45 PM LOS: 0 days Patient screened and discharge needs evaluated. Grocery Checker to follow for discharge planning. SIGNATURE: Jossy Warner RN PATIENT NAME: Charlie Nguyen DATE: December 19, 2020 TIME: 1:39 PM PAGER/CONTACT #: [phone] [facility] CBCon 12-19-2020 Absolute nRBC <0.01 Normal <0.01 [facility] Erythrocyte distribution width (RBC) [Ratio] 15.2 % High 11.5-15.0 [facility] Hematocrit (Bld) [Volume fraction] 40.6 % Normal 36.0-46.0 [facility] Hemoglobin (Bld) [Mass/Vol] 12.9 g/dL Normal 11.5-15.5 [facility] MCH 31.8 pG Normal 26.0-34.0 [facility] MCHC (RBC) [Mass/Vol] 31.8 g/dL Normal 30.5-36.0 [facility] MCV (RBC) [Entitic vol] 100.0 fL Normal 80.0-100.0 [facility] Platelet mean volume (Bld) [Entitic vol] 10.4 fL Normal 9.0-12.7 [facility] Platelets (Bld) [#/Vol] 168 10*3/uL Normal 150-400 [facility] RBC (Bld) [#/Vol] 4.06 10*6/uL Normal 3.90-5.20 [facility] WBC (Bld) [#/Vol] 10.80 10*3/uL Normal 3.70-11.00 [facility] CONSULTon 12-19-2020 CONSULT HNO ID: [id number] Author: Scott Parrish MD Service: Orthopaedic Surgery Author Type: Physician Type: Consults Filed: 12/19/2020 2:59 PM Note Text: ORTHOPAEDIC SURGERY CONSULTATION NOTE Patient Name: Charlie Nguyen Admission Date: 12/19/2020 Consult Date: 12/19/2020 Consulting Service: Emergency Medicine Primary Care Physician: Moreno Oates MD Reason for Consult: Knee pain IMPRESSION 1. Right Recurrent Periprosthetic Joint Infection - Synovial fluid analysis consistent with prosthetic infection: Nucleated cells 25,122 , 92% PMNs PLAN Admission status: . Test(s)/Imaging: Radiographs of the right knee reviewed. Intervention: Arthrocentesis - consistent with PJI PT/OT: WBAT RLE. Diet: NPO Dressing: None Pain Control: Per primary. Antibiotics: Hold until cultures obtained in OR DVT Prophylaxis: Hold AC for surgery Disposition: Anticipate surgery today SUBJECTIVE Ms. Nguyen is a 65 year old female with right knee pain status post right total knee replacement by Dr. Tavares on 06/06/2016. Patient has had multiple revisional operations including revision total knee arthroplasty with extensor mechanism repair by Dr. Parrish 03/21/2018. 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 Patient was subsequently sent for right knee irrigation and debridement with polyethylene exchange on 11/06/2019. Patient was discharged to short-term nursing facility where she has been living since. She is on Eliquis with last dose PM of 12/18. Patient states that about 4 to 5 days ago she began experiencing UTI symptoms noting that the next day she had sudden onset excruciating right knee pain. Patient states that she has not taken any suppressive antibiotics at this time. Patient denies any known fever but states that she may have been experiencing some subjective chills. Due to excruciating pain and extensive history of infection in this right knee patient was sent to the ED for further evaluation. Ambulatory status: wheelchair bound secondary to pain in right knee. Pivots on bilateral extremities Living conditions: lives in a nursing facility Past Medical History: PAST MEDICAL HISTORY Diagnosis Date - Basal cell carcinoma - Current smoker 05/28/2016 - H/O chest tube placement 2013 R side due to punctured lung - Ischemic colitis (HCC) - Lumbar disc herniation 1983 - MRSA (methicillin resistant Staphylococcus aureus) - MS (multiple sclerosis) (HCC) - Osteoarthritis of right knee Past Surgical History: PAST SURGICAL HISTORY Procedure Laterality Date - COLONOSCOPY 06/2014 ischemic colitis - HYSTERECTOMY HX 1987 - JOINT REPLACEMENT HX - PAST SURGICAL HISTORY OF surgery for fractured rib - TOTAL KNEE REPLACEMENT Right 06/06/2016 Knee replacement, total - TOTAL KNEE REPLACEMENT Left 01/28/2017 Knee replacement, total Family History: FAMILY HISTORY Problem Relation Age of Onset - Breast Cancer Mother - Kidney Disease Father kidney cancer - other (drug overdose) Daughter 38 from fentanyl Social History: Social History Tobacco Use - Smoking status: Current Every Day Smoker Packs/day: 1.00 Types: Cigarettes Start date: 1969 - Smokeless tobacco: Never Used Substance Use Topics - Alcohol use: No - Drug use: No Medications: Prior to Admission Medications: (Not in a hospital admission) No current facility-administered medications for this encounter. Current Outpatient Medications Medication Sig - pregabalin (LYRICA) 100 mg capsule Take 1 capsule by mouth twice daily for 30 days. - diazePAM (VALIUM) 5 mg tablet Take 1 tablet by mouth every 12 hours as needed for up to 30 days. - omeprazole (PRILOSEC) 40 mg capsule Take 1 capsule by mouth once daily. - QUEtiapine (SEROQUEL) 50 mg tablet Take 1 tablet by mouth daily at bedtime. - diclofenac sodium (VOLTAREN) 1 % topical gel Apply 4 g to affected area four times daily. To back - apixaban (ELIQUIS) 5 mg tab(s) Take 1 tablet by mouth twice daily. - hydroCHLOROthiazide (HYDRODIURIL, ESIDRIX) 25 mg tablet Take 1 tablet by mouth once daily. - metoprolol tartrate, short acting, (LOPRESSOR) 100 mg tablet Take 1 tablet by mouth twice daily. - PARoxetine (PAXIL) 40 mg tablet Take 1 tablet by mouth once daily. - valproic acid (DEPAKENE) 250 mg capsule Take 1 capsule by mouth three times daily. - sodium chloride (NaCl) 0.9% injection solution Inject 10 mL intravenously once daily. 10ml before and after dose, 10ml before lab draw, 20ml after lab draw, up to 30ml for sluggish IV, 10ml between bag changes and 10ml daily for maintenance - acetaminophen (TYLENOL) 500 mg tablet Take 1,000 mg by mouth every 6 hours as needed for Pain. - potassium chloride ER (K-DUR, KLOR-CON) 20 mEq tablet Take 1 tablet by mouth twice daily. - pramoxine-hydrocortis one (PROCTOFOAM-HC) rectal foam 1 Applicator by RECTA (more content not included)... [facility] CONSULT PROGon 12-19-2020 CONSULT PROG HNO ID: [id number] Author: Royer Winslow [facility] Service: Pharmacy Author Type: Pharmacist Type: Consult Progress Note Filed: 12/19/2020 8:23 PM Note Text: PHARMACY VANCOMYCIN DOSING NOTE Patient Name: Charlie Nguyen Admission Date: 12/19/2020 Date of Consult: 12/19/2020 Time of Consult: 8:22 PM Indication: Bone AND joint infection Goal Range: 10-20 mcg/mL RECOMMENDATIONS/PLAN: Pharmacy consulted for vancomycin dosing for Charlie Nguyen, a 65 year old, female who is being treated with vancomycin for prosthetic joint infection 1. Patient is currently ordered Vancomycin 1.5 g IV q12h. Today is day 1 of therapy. 2. No vancomycin level has been drawn for this dosing regimen. 3. The present dose of vancomycin is the recommended dosage for this patient at this time. Continue therapy as prescribed. 4. The next vancomycin level will be ordered for prior to the 5th dose unless clinically indicated sooner. (Pharmacy will order) We will follow patient renal function, vancomycin levels and doses with you during the course of therapy. Additional recommendations will appear in follow up notes. If [place] have [place] [phone]. Age: [age] year old Allergies: ALLERGIES Allergen Reactions - Nsaids (Non-Steroid* GI Upset - Gabapentin GI Upset - Macrobid [Nitrofura* Hives - Tramadol Contraindication-Medi mike Surgical Drug interaction with amitriptyline - told not to take due to increased seizure risk - [place] [Hydrocodone-* GI Upset Didn't do anything for her pain Last 3 Encounter Wt Readings: Date: Wt: 12/19/2020 105.2 kg (232 lb) 12/14/2019 109.8 kg (242 lb) 11/04/2019 110 kg (242 lb 8.1 oz) Last 1 Encounter Ht Readings: Date: Ht: 12/19/2020 180.3 cm (5' 11) CrCl: 93 mL/min Temp (24hrs), Av.7 ?C (98.1 ?F), Min:36.4 ?C (97.5 ?F), Max:37 ?C (98.6 ?F) - Current Temp: 36.4 ?C (97.5 ?F) Labs BUN (mg/dL) Date Value 12/19/2020 15 12/05/2019 12 11/11/2019 5 (L) Creatinine (mg/dL) Date Value 12/19/2020 0.81 12/05/2019 0.45 (L) 11/11/2019 0.52 (L) WBC Date Value 12/19/2020 10.80 k/uL 12/05/2019 8.69 thou/cmm 11/11/2019 7.92 k/uL Vancomycin Levels: Vancomycin, result (ug/mL) Date/Time Value 11/11/2019 0856 24.4 (H) 11/09/2019 0700 13.3 Royer Winslow, [facility] Coronavirus 2019on 1 SARS-CoV-2 (COVID-19) RNA TANVIR+probe Ql (Unsp spec) UPPER RESPIRATORY TRACT SWAB Normal [facility] Comment on above: Performed By: #### C OVID ####[facility], [place] [phone] SARS-CoV-2 (COVID-19) RNA TANVIR+probe Ql (Unsp spec) Negative for COVID19 (SARS CoV2) by RT-PCR or equivalent method. Normal Negative for COVID19 (SARS CoV2) by RT-PCR or equivalent method. [facility] Comment on above: Result Comment: This test was developed and its performance characteristics determined by [facility]. This test has been authorized by FDA under an Emergency Use Authorization (EUA). This test has been validated in accordance with the FDA's Guidance Document Policy for Diagnostics Testing in Laboratories Certified to Perform High Complexity Testing under CLIA prior to Emergency use Authorization for Coronavirus Disease 2019 during the Public Health Emergency issued on July 30, 2019. Test performed by [facility], [facility], [address] [place], [place] [address]. Performed By: #### C OVID ####[facility] [place], [place] [phone] ED NOTEon 12-19-2020 ED NOTE HNO ID: [id number] Author: ADILENE Guardado Service: ? Author Type: Patient Care Rn Embedded Type: ED Notes Filed: 12/19/2020 10:02 AM Note Text: Patient states that she is frustrated with care and is in 9/10 pain. Nurse is notified and aware. At this time an external female catheter has also been placed for adequate voiding. [facility] ED NOTE HNO ID: [id number] Author: Joselin Jeff RN Service: ? Author Type: Registered Nurse Type: ED Notes Filed: 12/19/2020 7:04 AM Note Text: Covid obtained and walked to lab Normal [facility] ED NOTE HNO ID: [id number] Author: Joselin Jeff RN Service: ? Author Type: Registered Nurse Type: ED Notes Filed: 12/19/2020 3:27 AM Note Text: [facility] ED NOTE HNO ID: [id number] Author: Joselin Jeff RN Service: ? Author Type: Registered Nurse Type: ED Notes Filed: 12/19/2020 2:26 AM Note Text: Sent from [facility] ER for possible right knee infection. Right knee replaced recently. Patient c/o 03/10 pain. Placed on O2 by squad for pulse ox at 90% on room air upon arrival. Placed on 3L here for pulse ox at 90% on 2 liters NC. [facility] ED PROV NOTEon 12-19-2020 ED PROV NOTE HNO ID: [id number] Author: Russell Holley, Service: ? Author Type: Physician Type: ED Provider Notes Filed: 12/19/2020 5:36 AM Note Text: ED Provider Note Patient Name: Charlie Nguyen SERVICE DATE: 12/19/20 History Patient presents with: Right Knee Pain: post surgical History provided by: Patient Knee Pain Location: Right knee pain Severity: Moderate Onset quality: Gradual Timing: Constant Progression: Worsening Chronicity: New Associated symptoms: no abdominal pain, no chest pain, no diarrhea, no fatigue, no fever, no myalgias, no rash, no shortness of breath and no vomiting Patient to emergency department for evaluation of right knee pain and swelling. This been present for several days. Patient presented to outside emergency department and was then sent here as she had had prior knee replacement surgery here at [facility]. He was sent for rule out septic joint. She denies any other constitutional symptoms. PAST MEDICAL HISTORY Diagnosis Date - Basal cell carcinoma - Current smoker 05/28/2016 - H/O chest tube placement 2013 R side due to punctured lung - Ischemic colitis (HCC) - Lumbar disc herniation 1983 - MRSA (methicillin resistant Staphylococcus aureus) - MS (multiple sclerosis) (HCC) - Osteoarthritis of right knee PAST SURGICAL HISTORY Procedure Laterality Date - COLONOSCOPY 06/2014 ischemic colitis - HYSTERECTOMY HX 1987 - JOINT REPLACEMENT HX - PAST SURGICAL HISTORY OF surgery for fractured rib - TOTAL KNEE REPLACEMENT Right 06/06/2016 Knee replacement, total - TOTAL KNEE REPLACEMENT Left 01/28/2017 Knee replacement, total FAMILY HISTORY Problem Relation Age of Onset - Breast Cancer Mother - Kidney Disease Father kidney cancer - other (drug overdose) Daughter 38 from fentanyl Social History Tobacco Use - Smoking status: Current Every Day Smoker Packs/day: 1.00 Types: Cigarettes Start date: 1969 - Smokeless tobacco: Never Used Substance and Sexual Activity - Alcohol use: No - Drug use: No - Sexual activity: Never ALLERGIES Allergen Reactions - Nsaids (Non-Steroid* GI Upset - Gabapentin GI Upset - Macrobid [Nitrofura* Hives - Tramadol Contraindication-Medi mike Surgical Drug interaction with amitriptyline - told not to take due to increased seizure risk - [place] [Hydrocodone-* GI Upset Didn't do anything for her pain Review of Systems Constitutional: Negative for chills, fatigue and fever. Eyes: Negative for visual disturbance. Respiratory: Negative for chest tightness and shortness of breath. Cardiovascular: Negative for chest pain. Gastrointestinal: Negative for abdominal pain, diarrhea and vomiting. Genitourinary: Negative for difficulty urinating. Musculoskeletal: Negative for myalgias and neck pain. Skin: Negative for rash. Neurological: Negative for weakness. Psychiatric/Behaviora l: Negative for agitation. Physical Exam BP 98/56 Pulse 62 Temp 98.6 Resp 16 Ht 5' 11 (1.80m) Wt 232 lb (105.2kg) SpO2 90% BMI 32.37 kg/(m2). O2 Therapy: Room Air Physical Exam Vitals and nursing note reviewed. Constitutional: Appearance: She is well-developed. HENT: Head: Normocephalic and atraumatic. Eyes: General: No scleral icterus. Cardiovascular: Rate and Rhythm: Normal rate and regular rhythm. Pulmonary: Effort: Pulmonary effort is normal. Breath sounds: Normal breath sounds. Abdominal: General: Bowel sounds are normal. Palpations: Abdomen is soft. Musculoskeletal: General: Tenderness present. No deformity. Cervical back: Normal range of motion and neck supple. Right upper leg: Normal. Right knee: Swelling, effusion and erythema present. No deformity, ecchymosis or lacerations. Decreased range of motion. Tenderness present. Normal pulse. Right lower leg: Normal. Skin: General: Skin is warm and dry. Findings: No rash. Neurological: General: No focal deficit present. Mental Status: She is alert and oriented to person, place, and time. Motor: No abnormal muscle tone. Diagnostic Testing ED Labs Ordered and Reviewed - No data to display Procedures ED Course / Clinical Impression Clinical Impressions as of Dec 19 05 Pyogenic arthritis of right knee joint, due to unspecified organism (HCC) Acute pain of right knee MDM / Disposition / Plan MDM Ortho was consulted and saw the patient in the emergency department. They tapped her right knee and the results are consistent with an acute septic joint of the right knee. Per their request secondary to comorbidities patient will be admitted under the hospitalist service with them on consult. Plan is to keep n.p.o., no antibiotics for now, with plans to take to operating room later today. The patient was ADMITTED TO: Regular nursing floor. Condition at time of disposition: stable SIGNATURE: DO Russell Fernandez DO 12/19/20 0536 [facility] Fungal Cult / Smearon 2020 Fungal Cult / Smear Sp. Request/Comment: - Specimen received in sterile container. Smear Result - No fungus seen. Culture Result - No Fungus isolated after 30 days [facility] Comment on above: Performed By: #### F CULSM ####[facility], [place] [phone] HISTORY PHYSICALon HISTORY PHYSICAL HNO ID: [id number] Author: Angelia Pitt APRN.CNP Service: Hospital Medicine Author Type: Nurse Practitioner Type: HANDP Filed: 12/19/2020 10:24 AM Note Text: Attestation signed by Rufino Torres MD at 12/19/2020 6:43 PM (Updated) Attending Note: Bey findings confirmed. Patient examined. Discussed with the nurse practitioner and the patient. Plan as outlined. 65 Y F with hx of acute PE, DVT, on eliquis presenting with dysuria and acute right knee pain Dysuria: Send UA and culture. Discuss with ortho resident. They are asking to hold ABX for now until cultures can be obtained in OR. They will order ABX post surgery. Acute right knee pain/ Prosthetic joint infection: arthrocentesis concerning for prosthetic joint infection. Pt to go to the OR today Preop eval: no CP, no SOB, does not ambulate much due to her knee, no prior reaction to anesthetics. Reviewed ECG - NSR no concerning findings. Pt is optimized for surgery. Will need pulmonary status monitored closely as her sats are lower. Start Incentive spirometry. Lungs are clear, no evidence of wheezing, no labored breathing Hx of DVT and PE: in 2018 has been on eliquis. No recent events. Ortho aware of eliquis. Holding morning dose. Ortho will place orders for Anticoagulation post surgery On HCTZ: Holding preop. Restart when able and if BP allows SIGNATURE: Rufino Torres MD PAGER: [phone] ( please page [phone] between 5 pm and 7 am) DATE of SERVICE: December 19, 2020 TIME of SERVICE: 11:24 AM DEPARTMENT OF HOSPITAL MEDICINE HISTORY AND PHYSICAL EXAM SERVICE DATE: 12/19/2020 SERVICE TIME: 10:09 AM w Primary Care Physician: Moreno Oates MD NIGHT AND WEEKEND COVERAGE: [facility] COVERAGE: Patient admitted to hospital medicine From 0700 - 1630, please contact pager [phone] for patient issues. From 1630 - 0700, please contact the Night Hospitalist on pager [phone] for patient issues. Subjective CHIEF COMPLAINT: Right knee pain HPI: This is a 65 year old female with PMH MS, Seizure disorder, MRSA, recurrent right knee septic arthritis, DVT/PE on Eliquis, GERD, debility who presents with acute on set of right knee pain yesterday. She presents with swelling, erythema and tenderness. Ortho consulted from ED. S/P joint aspiration, fluid culutres pending. PAST MEDICAL HISTORY Diagnosis Date - Basal cell carcinoma - Current smoker 05/28/2016 - H/O chest tube placement 2013 R side due to punctured lung - Ischemic colitis (HCC) - Lumbar disc herniation 1983 - MRSA (methicillin resistant Staphylococcus aureus) - MS (multiple sclerosis) (HCC) - Osteoarthritis of right knee PAST SURGICAL HISTORY Procedure Laterality Date - COLONOSCOPY 06/2014 ischemic colitis - HYSTERECTOMY HX 1987 - JOINT REPLACEMENT HX - PAST SURGICAL HISTORY OF surgery for fractured rib - TOTAL KNEE REPLACEMENT Right 06/06/2016 Knee replacement, total - TOTAL KNEE REPLACEMENT Left 01/28/2017 Knee replacement, total FAMILY HISTORY Problem Relation Age of Onset - Breast Cancer Mother - Kidney Disease Father kidney cancer - other (drug overdose) Daughter 38 from fentanyl Social History Tobacco Use - Smoking status: Current Every Day Smoker Packs/day: 1.00 Types: Cigarettes Start date: 1969 - Smokeless tobacco: Never Used Substance Use Topics - Alcohol use: No - Drug use: No MEDICATIONS: Reviewed (Not in a hospital admission) ALLERGIES Allergen Reactions - Nsaids (Non-Steroid* GI Upset - Gabapentin GI Upset - Macrobid [Nitrofura* Hives - Tramadol Contraindication-Medi mike Surgical Drug interaction with amitriptyline - told not to take due to increased seizure risk - [place] [Hydrocodone-* GI Upset Didn't do anything for her pain REVIEW OF SYSTEM: Review of Systems Constitutional: Negative for chills and fever. HENT: Negative for sore throat. Respiratory: Negative for cough and shortness of breath. Cardiovascular: Negative for chest pain and leg swelling. Gastrointestinal: Negative for abdominal pain, constipation, diarrhea, nausea and vomiting. Genitourinary: Positive for dysuria. Musculoskeletal: Positive for joint pain. Does not walk - uses wheelchair Neurological: Positive for weakness. Negative for dizziness and headaches. Objective PHYSICAL EXAM: BP 101/68 Pulse 68 Temp 98.6 Resp 17 Ht 5' 11 (1.80m) Wt 232 lb (105.2kg) SpO2 94% BMI 32.37 kg/(m2). O2 Therapy: Nasal Cannula, Liters: 2 Physical Exam Performed: Physical Exam Constitutional: Appearance: She is obese. Comments: Sleepy disheveled. Awakens from deep sleep( requires loud verbalization to awaken) Immediately complains of pain upon awakening and upset that she did not get pain pill Shares that she takes Valium daily a (more content not included)... [facility] NURSING PROGon 12-19-2020 NURSING PROG HNO ID: [id number] Author: Senait Girard RN Service: Nursing Author Type: Registered Nurse Type: Nursing Progress Note Filed: 12/19/2020 1:42 PM Note Text: Right Femoral Nerve Block SS Dr. Ky YEE Patient verbalized her understanding of the nerve block procedure [facility] NURSING PROG HNO ID: [id number] Author: Terry Moreau RN Service: Nursing Author Type: Registered Nurse Type: Nursing Progress Note Filed: 12/19/2020 7:33 PM Note Text: Nursing Progress Note PATIENT NAME: Charlie Nguyen PATIENT LOCATION: [place] [address]-P Daily note: 1315 Patient arrived to 4 in stable condition. Oriented to room and call light system. Updated on pain management board. Skin assessment completed. Report given to Preop Nurse by phone for OR. 1320 UA/UC sent to lab. [phone] Patient off unit in surgery. Report given to on coming night MUSHT[employer] magana. This note was completed by: Terry Davidson RN BSN [facility] OPERATIVE NOon 12-19-2020 OPERATIVE NO HNO ID: [id number] Author: Scott Parrish MD Service: Orthopaedic Surgery Author Type: Physician Type: Operative Report Filed: 12/20/2020 11:35 AM Note Text: OPERATIVE/PROCEDURE REPORT LOG ID: [id number] SURGERY/PROCEDURE DATE: 12/19/2020 INCISION/PROCEDURE START TIME: 4:26 PM INCISION CLOSE/PROCEDURE END TIME: 6:06 PM SURGEON(S)/PROCEDURAL IST(S) AND HOGSHEAD FILLER(S): Surgeon(s) and Role: * Scott Parrish MD - Primary * Trish Moran DO - Resident - Assisting * Chris Finn MD - Fellow No Additional Staff Surgeon: Scott Parrish MD Procedure(s): Right knee arthrotomy with irrigation and debridement (with polyethylene exchange)- CPT 44299-71 A 22 modifier is added to the case for modular component exchange. This made the case more difficult and resulted in increased operative time and effort compared to a knee arthrotomy/ washout procedure. 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 She then had a washout in 2019 for presumed acute hematogenous infection She reports doing well after that (not on antibiotic suppression), until developing a UTI a few days ago, with new onset acute knee pain and swelling. She was evaluated and the work-up was suggestive of infection. ESR 30, CRP 23.7. Aspiration showed 25k WBC (92% PMN), cultures pending. After the risks, benefits, and alternatives were discussed, the patient opted for irrigation and debridement with polyethylene exchange in an attempt to salvage the leg. Explant/ spacer is not feasible given presence of mesh and inability to eradicate all foreign material. We discussed DAIR strategy with antibiotic suppression. An explicit discussion was conducted with regards to the odds of successful infection eradication with this treatment course. She is at risk for amputation. OPERATIVE PROCEDURE: The operative procedure was confirmed with the patient and the extremity was marked. The patient was brought to the operating room and transferred to the operating table. Anesthesia was administered by the anesthesiology team. Preoperative antibiotics were given. A tourniquet was placed around the upper thigh. The right lower extremity was prepped and draped in the usual sterile fashion. A time-out was undertaken by the entire team and the procedure was confirmed. The limb was exsanguinated using gravity drainage, and the tourniquet was inflated. The old incision was marked and incised down to the extensor mechanism. Full-thickness medial and lateral flaps were re-developed. A medial parapatellar arthrotomy was made and cloudy yellow fluid was encountered. A complete synovectomy was performed and the gutters were re-created. Tissue was sent for culture. Medial and lateral joint line releases were done taking care to protect the collateral ligaments. The old polyethylene was removed with an osteotome. The implants were inspected and found to be well-fixed. Synovium along the back of the knee was carefully debrided using curettes and rongeurs. The knee was then irrigated with 15 liters of pulsatile saline. The knee was also irrigated with dilute betadine solution, dilute chlorhexidine, and dilute hydrogen peroxide solution and the components mechanically debrided. Following this lavage, the knee was quite clean with no remaining suspicious-appearing tissue. New drapes were placed, gowns and gloves changed, and clean instruments were opened for the remainder of the case. A new polyethylene was then inserted, and the knee was ligamentously stable throughout the range of motion. The tourniquet was released and hemostasis was obtained using the cautery. Irrisept solution was used, and final irrigation performed. One gram of vancomycin powder was placed into the knee. The arthrotomy was closed meticulously, and the remainder of the wound was closed watertight in layers. A sterile dressing was applied. I performed the procedure with assistance, with the exception of the superficial closure, which was performed by the assistants with me immediately available. IMPLANTS: Harrison MRH 13 mm polyethylene and hinge components ESTIMATED BLOOD LOSS: 150 cc DRAINS: None SPECIMENS: To microbiology for culture and pathology. COMPLICATIONS: None. POSTOPERATIVE PLAN: Infectious Disease will be consulted and antibiotics will be tailored based on the culture results. VTE prophylaxis: Lovenox -> Eliquis Weightbearing status: WBAT SIGNATURE: Scott Parrish MD PATIENT NAME: Charlie Nguyen DATE: December 20, 2020 TIME: 11:35 AM Normal [facility] Protimeon 12-19-2020 PT INR 1.0 Normal 0.9-1.3 [facility] Comment on above: Result Comment: Selina min K Antagonist (VKA) Therapeutic Range: INR 2 to 3 (Target INR of 2.5) Note: For patients treated with VKA drugs, such as warfarin, the [place] [employer] 2012 Guideline recommends a therapeutic INR range of 2 to 3 (target INR of 2.5). This recommendation includes high-risk patients with antiphospholipid syndrome with previous arterial or venous thromboembolism, current-generation mechanical or bioprosthetic aortic heart valve replacement. Note: Patients with mechanical aortic valve replacement and additional risk factors for thromboembolic events (atrial fibrillation, previous thromboembolism, LV dysfunction, hypercoagulable conditions) or an older generation mechanical AVR (i.e., ball in-Cage) or any mechanical MVR should have a INR therapeutic range of 2.5 to 3.5 (target INR of 3). Prem GH, et al. Chest 2012, 141:7S-47S Heather RA, et al. JACC 2017, 70: 252-289 PT Sec 10.9 sec Normal 9.7-13.0 [facility] Routine Analysis (Synovial F ld)on 12-19-2020 Clarity (U) Cloudy Critically abnormal Clear [facility] Comment on above: Performed By: #### R YELITZAF ####[place] [address] [address], [place] [phone] Color (U) Julianna Critically abnormal Yellow [facility] Comment on above: Performed By: #### R YELITZAF ####[place] [address] [address], [place] [phone] Crystals LM Nom (Urine sed) None seen Normal None seen [facility] Comment on above: Performed By: #### R YELITZAF ####[place] [address] [address], [place] [phone] Lymphocytes/100 WBC (Bld) 3 % Normal [facility] Comment on above: Performed By: #### R YELITZAF ####[place] [address] [address], [place] [phone] Monocytes/100 WBC (Bld) 5 % Normal [facility] Comment on above: Performed By: #### R YELITZAF ####[place] [address] [address], [place] [phone] Neutrophils/100 WBC (Bld) 92 % High 0-25 [facility] Comment on above: Performed By: #### R YELITZAF ####[place] [address] [address], [place] [phone] Path Interp Crystals SEE COMMENT Normal [facility] Comment on above: Result Comment: Revi ewed by Kvng Harris M.D., Ph.D ([id number]) Performed By: #### R YELITZAF ####[place] [address] [address], [place] [phone] RBC (Bld) [#/Vol] 0.009 10*6/uL High <2000 [facility] Comment on above: Performed By: #### R YELITZAF ####[facility] [address], [place] [phone] Site Right Knee Normal [facility] Comment on above: Performed By: #### R YELITZAF ####[place] [id number], [place] [phone] Slide Number [id number] Normal [facility] Comment on above: Performed By: #### R YELITZAF ####[facility] [place] [phone] Spec Site, Crystal Right Knee Normal [facility] Comment on above: Performed By: #### R YELITZAF ####[place] [address] [address], [place] [phone] Suprntnt Clarity Clear Normal Clear [facility] Comment on above: Performed By: #### R YELITZAF ####[place] [address] [address] [place] [phone] Suprntnt Color Yellow Critically abnormal Colorless [facility] Comment on above: Performed By: #### R YELITZAF ####[place] [address] [address], [place] [phone] SYNOVIAL COMMENT SEE COMMENT Normal [facility] Comment on above: Result Comment: PREL IMINARY REPORT No diagnostic crystals seen. SEE FINAL SYN FLD PATH REVIEW No malignant cells, no microorganisms Performed By: #### R YELITZAF ####[place] [address] [address] [place] [phone] Synovial Path Interp SEE COMMENT Normal [facility] Comment on above: Result Comment: Revi ewed by Kvng Harris M.D., Ph.D ([id number]) Performed By: #### R YELITZAF ####[place] [address] [address] [place] [phone] [place] [address] /uL High 0-200 [facility] Comment on above: Performed By: #### R TSYNF ####[facility] [address] [place], [place] [phone] SURGICAL PATHOLOGYon 021 SURGICAL PATHOLOGY Specimen originated from [facility] Specimen #: [id number] Submitting Physician: MARICEL LEVY FINAL DIAGNOSIS Right knee hardware, removal - Components of a knew prosethesis (gross examination only). MORENITA/SEA/priti 12/20/2020 Royer Wheatley M.D. (Electronic Signature) ____ SPECIMEN SUBMITTED A: INFECTED HARDWARE RIGHT KNEE CLINICAL DATA REVISION JOINT TOTAL KNEE ONE COMPONENT, JOINT INFECTION (HCC), PYOGENIC ARTHRITIS OF RIGHT KNEE JOINT, DUE TO UNSPECIFIED ORGANISM (HCC) GROSS DESCRIPTION A. Received fresh labeled infected hardware right knee are components to a knee prosthesis. A polyethylene spacer component is identified measuring 6.5 x 3.8 x 1.5 cm. This device is inscribed 13 mm, XSML/SML/S1/S2, 6481-3-213, FZG038. The articular surface is smooth and unremarkable. Also identified is a chavez-metallic stemmed tibial tray component measuring 7.5 x 5.6 x 3.7 cm. This device is inscribed [id number], 6481-2-100, XSML-XLG. The outer surface is unremarkable. Also identified is a chavez - metallic surgical annemarie measuring 6.0 cm in length x 1.0 cm in diameter. This device is inscribed [id number], 6481-2-120. The outer surface is unremarkable. Also identified are 4 chavez polyethylene, irregular components, measuring 2.1 to 4.1 cm in greatest dimension, and 6.0 x 4.0 x 2.2 cm in aggregate. The largest device bears no inscription. The second largest device is inscribed [id number], neutral. The smaller devices are inscribed JL609, 6481-2-110 and JM913, 6481-2-110. No tissue is present. No sections are submitted. The specimen is reviewed with Dr. Wheatley. NE/priti 12/20/2020 HE PATIENT Gross examination performed at [facility], [address] [place] [address] Date of Report: 12/21/2020 Date of Procedure: 12/19/2020 Date of Receipt: 12/20/2020 Submitted by: MARICEL LEVY Additional Physician(s): RUFINO Gong ASHIPPUN Location: ORTHO/VASCULAR Diagnostic [place] [address]. CLIA Number: [id number] Normal [facility] Tissue Cult / Stainon 2020 Tissue Cult / Stain Sp. Request/Comment: - Specimen received in sterile container. Smear Result - No organisms seen No Polymorphonuclear Leukocytes Culture Result - No growth 14 days [facility] Comment on above: Performed By: #### T ISCUL ####[phone] Tissue Cult / Stain Sp. Request/Comment: - Specimen received in sterile container. Smear Result - No organisms seen No Polymorphonuclear Leukocytes Culture Result - No growth 14 days [facility] Comment on above: Performed By: #### T ISCUL ####[phone] Tissue Cult / Stain Sp. Request/Comment: - Specimen received in sterile container. Smear Result - No organisms seen No Polymorphonuclear Leukocytes Culture Result - No growth 14 days [facility] Comment on above: Performed By: #### T ISCUL ####[facility] [address] [place], [place] [address]IdcoxhhouSt. [facility] Hospital [address] [place], [place] [phone] Urinalysison 12-19-2020 Bacteria 1+ /HPF Critically abnormal Negative [facility] Bilirubin, Urine Negative Normal Negative [facility] Clarity (U) Turbid Critically abnormal Clear [facility] Color (U) Yellow Critically abnormal Yellow [facility] Comments SEE COMMENT Normal [facility] Comment on above: Result Comment: Micr oscopic Examination Performed Epithelial cells LM Ql (Urine sed) SEE COMMENT Critically abnormal Occasional [facility] Comment on above: Result Comment: 2+ Squamous Epithelial Cells Glucose Ql (U) Negative Normal Negative [facility] Hemoglobin/Blood,Ur 2+ Critically abnormal Negative [facility] Ketones Ql (U) Negative Normal Negative [facility] Leukest 500 Critically abnormal Negative [facility] Nitrite Ql (U) Negative Normal Negative [facility] pH (U) 6.0 [pH] Normal 5.0-8.0 [facility] Protein, Urine 1+ Critically abnormal Negative [facility] RBC 51-100 Critically abnormal 0-3 [facility] Specific [place], Ur 1.017 Normal 1.005-1.030 [facility] Urine, Other FOR EAST USE ONLY SEE COMMENT Normal [facility] Comment on above: Result Comment: 1+ Mucous Urobilinogen (U) [Mass/Vol] Negative Normal 0.2-1.0 [facility] WBC 100+ /HPF Critically abnormal 0-5 [facility] Urine Cultureon 12-19-2020 Bacteria identified Cx Nom (U) Sp. Request/Comment: - Specimen received in preservative Culture Result - >=100,000 CFU/ml Pseudomonas aeruginosa --> ABNORMAL ALERT ORGANISM: Pseudomonas aeruginosa METHOD: Minimum inhibitory concentration(Vitek) Antibiotic Interp ANDREA Status Gentamicin SUSCEPTIBLE <=1 F Ciprofloxacin SUSCEPTIBLE <=0.25 F Cefepime SUSCEPTIBLE <=1 F Piperacillin/Tazobac SUSCEPTIBLE <=4 F Meropenem INTERMEDIATE 4 F Critically abnormal [facility] Comment on above: Performed By: #### U RCUL ####[facility] [address] [place], [place] [phone] XR CHEST 1V FRONTAL PORTon 0 12-19-2020 XR CHEST 1V FRONTAL PORT * * *Final Repo rt* * * DATE OF EXAM: Dec 19 2020 7:29PM HCX 5376 - XR CHEST 1V FRONTAL PORT / PROCEDURE REASON: Acute respiratory illness * * * * Physician Interpretation * * * * RESULT: EXAMINATION: CHEST RADIOGRAPH (PORTABLE SINGLE VIEW AP) Exam Date/Time: 12/19/2020 7:29 PM CLINICAL HISTORY: Acute respiratory illness MQ: XCPR_5 Comparison: 11/07/2019 RESULT: See impression IMPRESSION: Lines, tubes, and devices: Cardiac monitoring leads are noted overlying the patient. Lungs and pleura: No gross lobar consolidation, edema or pneumothorax. Bilateral basilar atelectasis. Cardiomediastinal silhouette: Stable cardiomediastinal silhouette. Other: Remote right lateral rib fractures again present. Transcribed Using Voice Recognition Transcribe Date/Time: Dec 19 2020 7:53P Dictated by: CHU ZAVALA MD This examination was interpreted and the report reviewed and electronically signed by: CHU ZAVALA MD on Dec 19 2020 7:59PM EST [id number] N [facility] XR KNEE 2V AP/LAT RTon 12-19 XR KNEE 2V AP/LAT RT * * *Final Report* * * DATE OF EXAM: Dec 19 2020 7:30PM HCX 5207 - XR KNEE 2V AP/LAT RT / PROCEDURE REASON: Post-operative / post-procedure assessment, symptomatic * * * * Physician Interpretation * * * * RESULT: EXAMINATION: Portable right knee HISTORY: Postop TECHNIQUE: 2 view RESULTS: Right knee arthroplasty is in anatomic position with postoperative fluid, air and swelling. No adjacent hardware lucency. IMPRESSION: Postoperative changes with satisfactory position of the knee arthroplasty. Postop air, fluid and swelling noted Transcribed Using Voice Recognition Transcribe Date/Time: Dec 19 2020 7:33P Dictated by: WAYNE POLK MD This examination was interpreted and the report reviewed and electronically signed by: WAYNE POLK MD on Dec 19 2020 7:35PM EST [id number] N [facility] XR KNEE 4V AP/LAT/OBLS RTon 12-19-2020 XR KNEE 4V AP/LAT/OBLS RT * * *Final Report* * * DATE OF EXAM: Dec 19 2020 3:11AM HCX 5205 - XR KNEE 4V AP/LAT/OBLS RT / PROCEDURE REASON: Joint pain, knee * * * * Physician Interpretation * * * * RESULT: HISTORY: Joint pain, knee RESULT: Frontal, lateral, and double oblique views of the right knee. Four images are provided for interpretation, compared to 11/06/2019. The patient is post total knee replacement; the alignment is stable. No hardware loosening is appreciated. An old fracture deformity in the fibular neck is again seen. No acute fracture or malalignment is identified. Moderate soft tissue prominence is noted anterior to the knee. There is likely a joint effusion. IMPRESSION: Post total knee replacement. Moderate soft tissue swelling and joint fluid. Transcribed Using Voice Recognition Transcribe Date/Time: Dec 19 2020 3:44A Dictated by: AMRIT TAVARES MD This examination was interpreted and the report reviewed and electronically signed by: AMRIT TAVARES MD on Dec 19 2020 3:46AM EST [id number] N Normal [facility] Basic Metabolic PanelOrdered By: Jorge Mejia on 12-18-2020 Anion gap [Moles/Vol] 4 mmol/L 3 - 13 mmol/L [facility] Work Phone: Calcium [Mass/Vol] 8.6 mg/dL 8.4 - 10. 4 mg/dL [facility] Work Phone: Chloride [Moles/Vol] 103 mmol/L 98 - 10 7 mmol/L [facility] Work Phone: CO2 [Moles/Vol] 27 mmol/L 22 - 30 mmol/L [facility] Work Phone: Creatinine [Mass/Vol] 0.79 mg/dL 0.52 - 1.25 mg/dL [facility] Work Phone: EGFR IF NonAfrican [place] 78.8 mL/min >60 [facility] Work Phone: Comment on above: KDIGO guidelines pro vide the following GFR categories: Stage GFR(ml/min/1.73 m2) Terms G1 >=90 Normal or high G2 60-89 Mildly decreased* G3a 45-59 Mildly to moderately decreased G3b 30-44 Moderately to severely decreased G4 15-29 Severely decreased G5 <15 Kidney failure *Relative to young adult level. In the absence of evidence of kidney damage, neither GFR category G1 nor G2 fulfill the criteria for CKD. The CKD-EPI equation is validated in individuals 18 years of age and older. Currently the best equation for estimating glomerular filtration rate (GFR) from serum creatinine in children is the Bedside Rosales equation. It is less accurate in patients with extremes of muscle mass, restriction of dietary protein, ingestion of creatine, extra-renal metabolism of creatinine, or treatment with medications that affect renal tubular creatinine secretion. GFR/1.73 sq M.predicted among blacks MDRD (S/P/Bld) [Vol rate/Area] mL/min/{1.73_m2} >60 mL/min [employer] Work Phone: Glucose [Mass/Vol] 96 mg/dL 70 - 100 mg/dL [employer] Work Phone: Interpretation and review of laboratory results Abnormal [employer] Work Phone: Potassium [Moles/Vol] 4.0 mmol/L 3.5 - 5.1 mmol/L [employer] Work Phone: Sodium [Moles/Vol] 134 mmol/L Low 135 - 145 mmol/L [employer] Work Phone: Urea nitrogen (BldV) [Mass/Vol] 20 mg/dL 7 - 20 mg/dL [employer] Work Phone: Test Performed by [facility], [facility] [address]za [place] [address] [employer] Work Phone: [employer] Work Phone: [phone] C-REACTIVE PROTEINOrdered By : Jorge Mejia on 12-18-2020 CRP [Mass/Vol] 237 mg/L High 0.0 - 6.0 mg/L [employer] Work Phone: [phone] Comment on above: . Interpretation and review of laboratory results Abnormal [employer] Work Phone: Test Performed by [facility], [facility] [address]za , [place] [address] [employer] Work Phone: [phone] [facility] Work Phone: [phone] Hemogram (CBC) w/Auto DiffOr dered By: Jorge Mejia on 12-18-2020 Absolute Baso # 0.1 10*3/uL 0.0 - 0.2 10*3/uL [facility] Work Phone: [phone] Absolute Neut # 8.5 10*3/uL High 1.8 - 7.0 10*3/uL [facility] Work Phone: 1 Basophils/100 WBC (Bld) 0.5 % 0.0 - 2.0 % [facility] Work Phone: Eosinophils (Bld) [#/Vol] 0.1 10*3/uL 0.0 - 0.5 10*3/uL [facility] Work Phone: [phone] Eosinophils/100 WBC (Bld) 0.5 % Low 1.0 - 6.0 % [facility] Work Phone: Granulocytes/100 WBC (Bld) 73.0 % 40.0 - 80.0 % [facility] Work Phone: [phone] Hematocrit (Bld) [Volume fraction] 37.1 % 35.0 - 47.0 % [facility] Work Phone: [phone] Hemoglobin.gastrointesti nal spec 1 Ql (Stl) 12.2 g/dL 11.7 - 16.0 g/dL [facility] Work Phone: [phone] Interpretation and review of laboratory results Abnormal [facility] Work Phone: 1 Lymphocytes (Bld) [#/Vol] 2.0 10*3/uL 1.0 - 4.3 10*3/uL [facility] Work Phone: Lymphocytes/100 WBC (Bld) 17.1 % Low 20.0 - 40.0 % [facility] Work Phone: [phone] MCH (RBC) [Entitic mass] 31.5 pg 26. 0 - 34.0 pg [facility] Work Phone: MCHC (RBC) [Mass/Vol] 32.9 % 32.0 - 36.0 % [facility] Work Phone: [phone] MCV (RBC) [Entitic vol] 95.7 fL 79.0 - 98.0 fL [employer] Work Phone: Monocytes (Bld) [#/Vol] 1.0 10*3/uL High 0.0 - 0.8 10*3/uL [employer] Work Phone: 1 Monocytes/100 WBC (Bld) 8.9 % 2.0 - 10.0 % [employer] Work Phone: 1 Platelet distribution width (Bld) [Ratio] 15.6 % High 11.5 - 14.5 % [facility] Work Phone: Platelet mean volume (Bld) [Entitic vol] 8.4 fL 7.4 - 10.4 fL [employer] Work Phone: Platelets (Bld) [#/Vol] 188 10*3/uL 140 - 440 10*3/uL [employer] Work Phone: RBC (Bld) [#/Vol] 3.88 10*6/uL 3.80 - 5.2 0 10*6/uL [facility] Work Phone: WBC (Bld) [#/Vol] 11.7 10*3/uL High 3.6 - 10.7 10*3/uL [employer] Work Phone: Test Performed by [employer], [facility] [address] Work Phone: [facility] Work Phone: Lactic Acid, PlasmaOrdered B y: Jorge Mejia on 12-18-2020 Lactate [Moles/Vol] 0.7 mmol/L 0.7 - 2. 0 mmol/L [facility] Work Phone: Test Performed by [facility], [address] Work Phone: [facility] Work Phone: Sedimentation RateOrdered By : Jorge Mejia on 07-20-2021 Interpretation and review of laboratory results Abnormal [facility] Work Phone: Sed Rate 30 mm/h High 0 - 20 mm/h [facility] Work Phone: Test Performed by [facility], [address] , [place], [place] [address] [facility] Work Phone: [facility] Work Phone: XR KNEE RIGHT (3 VIEWS)Order ed By: Jorge Mejia on 12-18-2020 Patient Name: CHARLIE NGUYEN Diagnostic Radiology ACCESSION EXAM DATE/TIME PROCEDURE ORDERING PROVIDER [id number] 12/18/2020 21:31 EDT CR Knee 3 Views Right MD MEJIA VIJAY CPT code 52184 Reason For Exam (CR Knee 3 Views Right) swelling Report RIGHT KNEE 3 VIEWS CLINICAL INDICATION: swelling TECHNIQUE: 3 views of the right knee. COMPARISON: December,. FINDINGS: Status post right total knee arthroplasty again noted grossly intact. No acute fracture or dislocation. Generalized soft tissue edema. IMPRESSION: 1. No acute osseous abnormality. 2. Postsurgical change and soft tissue edema. Report Dictated on --- Final --- Dictating Physician: MD PABLO WENDELL Signed Date and Time: 12/18/2020 9:42 pm Signed by: MD PABLO WENDELL Transcribed Date and Time: 12/18/2020 9:43 [facility] Work Phone: [facility], [facility] Incoming Radiology Results From [facility] - 12/18/2020 9:43 PM EDT Patient Name: CHARLIE NGUYEN Diagnostic Radiology ACCESSION EXAM DATE/TIME PROCEDURE ORDERING PROVIDER [id number] 12/18/2020 21:31 EDT CR Knee 3 Views Right MD MEJIA VIJAY CPT code 44428 Reason For Exam (CR Knee 3 Views Right) swelling Report RIGHT KNEE 3 VIEWS CLINICAL INDICATION: swelling TECHNIQUE: 3 views of the right knee. COMPARISON: December,. FINDINGS: Status post right total knee arthroplasty again noted grossly intact. No acute fracture or dislocation. Generalized soft tissue edema. IMPRESSION: 1. No acute osseous abnormality. 2. Postsurgical change and soft tissue edema. Report Dictated on Workstation: [id number] --- Final --- Dictating Physician: MD PABLO WENDELL Signed Date and Time: 12/18/2020 9:42 pm Signed by: MD PABLO WENDELL Transcribed Date and Time: 12/18/2020 9:43 [facility] Work Phone: [facility] Work Phone: Basic Metabolic Panelon 09-0 Anion gap [Moles/Vol] 8 mmol/L [place] Calcium [Mass/Vol] 8.1 mg/dL Low 8.4 - 10. 4 mg/dL [place] Chloride [Moles/Vol] 101 mmol/L 98 - 10 7 mmol/L [place] CO2 [Moles/Vol] 26 mmol/L 22 - 30 mmol/L [place] Creatinine [Mass/Vol] 0.56 mg/dL 0.52 - 1.25 mg/dL [place] EGFR IF NonAfrican [place] >90.0 >60 mL/min [place] Comment on above: KDIGO guidelines pro vide the following GFR categories: Stage GFR(ml/min/1.73 m2) Terms G1 >=90 Normal or high G2 60-89 Mildly decreased* G3a 45-59 Mildly to moderately decreased G3b 30-44 Moderately to severely decreased G4 15-29 Severely decreased G5 <15 Kidney failure *Relative to young adult level. In the absence of evidence of kidney damage, neither GFR category G1 nor G2 fulfill the criteria for CKD. The CKD-EPI equation is validated in individuals 18 years of age and older. Currently the best equation for estimating glomerular filtration rate (GFR) from serum creatinine in children is the Bedside Rosales equation. It is less accurate in patients with extremes of muscle mass, restriction of dietary protein, ingestion of creatine, extra-renal metabolism of creatinine, or treatment with medications that affect renal tubular creatinine secretion. GFR/1.73 sq M predicted among blacks MDRD (S/P/Bld) [Vol rate/Area] mL/min/{1.73_m2} >60 mL/min [place] Glucose [Mass/Vol] 82 mg/dL 70 - 100 mg/dL [place] Interpretation and review of laboratory results Abnormal [place] Potassium [Moles/Vol] 4.2 mmol/L 3.5 - 5.1 mmol/L [place] Sodium [Moles/Vol] 135 mmol/L 135 - 145 mmol/L [place] Urea nitrogen [Mass/Vol] 28 mg/dL High 7 - 20 mg/d L [place] Test [facility] by [facility], [address], [place], [place] [address] [place] CBC Auto Differentialon 0 Absolute Baso # 0.1 10*3/uL 0 - 0.2 10*3/uL [place] Absolute Neut # 4.2 10*3/uL 1.8 - 7 10*3/uL [place] Basophils/100 WBC (Bld) 1.1 % 0 - 2 % [place] Eosinophils (Bld) [#/Vol] 0.5 10*3/uL 0 - 0.5 10*3/uL [place] Eosinophils/100 WBC (Bld) 6.4 % High 1 - 6 % [place] Erythrocyte distribution width (RBC) [Ratio] 16.2 % High 11.5 - 14.5 % [place] Granulocytes/100 WBC (Bld) 56.3 % 40 - 80 % [place] Hematocrit (Bld) [Volume fraction] 40.0 % 35 - 47 % [place] Hemoglobin (Bld) [Mass/Vol] 12.6 g/dL 11.7 - 16 g/dL [place] Interpretation and review of laboratory results Abnormal [place] Lymphocytes (Bld) [#/Vol] 1.8 10*3/uL 1 - 4.3 10*3/uL [place] Lymphocytes/100 WBC (Bld) 24.4 % 20 - 40 % [place] MCH (RBC) [Entitic mass] 27.4 pg 26 - 34 pg [place] MCHC (RBC) [Mass/Vol] 31.5 % Low 32 - 36 % [place] MCV (RBC) [Entitic vol] 87.0 fL 79 - 98 fL [place], [place] Monocytes (Bld) [#/Vol] 0.9 10*3/uL High 0 - 0.8 10*3/uL [place] Monocytes/100 WBC (Bld) 11.8 % High 2 - 10 % [place] Platelet mean volume (Bld) [Entitic vol] 8.5 fL 7.4 - 10.4 fL [place] Platelets (Bld) [#/Vol] 291 10*3/uL 140 - 440 10*3/uL [place] RBC (Bld) [#/Vol] 4.60 10*6/uL 3.8 - 5.2 10*6/uL [place] WBC (Bld) [#/Vol] 7.5 10*3/uL 3.6 - 10.7 10*3/uL [place] Test Performed by [facility], [address] [place], [place] [id number] [place] [address] Basic Metabolic Panelon 09-0 Anion gap [Moles/Vol] 4 mmol/L [place] Calcium [Mass/Vol] 8.0 mg/dL Low 8.4 - 10. 4 mg/dL [place] Chloride [Moles/Vol] 108 mmol/L High 98 - 10 7 mmol/L [place] CO2 [Moles/Vol] 28 mmol/L 22 - 30 mmol/L [place] Creatinine [Mass/Vol] 0.63 mg/dL 0.52 - 1.25 mg/dL [place] EGFR IF NonAfrican [place] >90.0 >60 mL/min [place] Comment on above: KDIGO guidelines pro vide the following GFR categories: Stage GFR(ml/min/1.73 m2) Terms G1 >=90 Normal or high G2 60-89 Mildly decreased* G3a 45-59 Mildly to moderately decreased G3b 30-44 Moderately to severely decreased G4 15-29 Severely decreased G5 <15 Kidney failure *Relative to young adult level. In the absence of evidence of kidney damage, neither GFR category G1 nor G2 fulfill the criteria for CKD. The CKD-EPI equation is validated in individuals 18 years of age and older. Currently the best equation for estimating glomerular filtration rate (GFR) from serum creatinine in children is the Bedside Rosales equation. It is less accurate in patients with extremes of muscle mass, restriction of dietary protein, ingestion of creatine, extra-renal metabolism of creatinine, or treatment with medications that affect renal tubular creatinine secretion. GFR/1.73 sq M predicted among blacks MDRD (S/P/Bld) [Vol rate/Area] mL/min/{1.73_m2} >60 mL/min [place] Glucose [Mass/Vol] 90 mg/dL 70 - 100 mg/dL [place] Interpretation and review of laboratory results Abnormal [place] Potassium [Moles/Vol] 4.0 mmol/L 3.5 - 5.1 mmol/L [place] Sodium [Moles/Vol] 140 mmol/L 135 - 145 mmol/L [place] Urea nitrogen [Mass/Vol] 27 mg/dL High 7 - 20 mg/d L [place] Test Performed by [facility] [employer] [facility], [address] [place], [place] [address] [place] CBC Auto Differentialon 09-0 Erythrocyte distribution width (RBC) [Ratio] 16.0 % High 11.5 - 14.5 % [place] Hematocrit (Bld) [Volume fraction] 37.6 % 35 - 47 % [place] Hemoglobin (Bld) [Mass/Vol] 11.9 g/dL 11.7 - 16 g/dL [place] Interpretation and review of laboratory results Abnormal [place] MCH (RBC) [Entitic mass] 27.2 pg 26 - 34 pg [place] MCHC (RBC) [Mass/Vol] 31.6 % Low 32 - 36 % [place] MCV (RBC) [Entitic vol] 86.3 fL 79 - 98 fL [place] Platelet mean volume (Bld) [Entitic vol] 8.7 fL 7.4 - 10.4 fL [place] Platelets (Bld) [#/Vol] 298 10*3/uL 140 - 440 10*3/uL [place] RBC (Bld) [#/Vol] 4.36 10*6/uL 3.8 - 5.2 10*6/uL [place] WBC (Bld) [#/Vol] 6.4 10*3/uL 3.6 - 10.7 10*3/uL [place] Test Performed by [facility], [address] [place], [place] [address] [place] COVID-19on 02-02-2020 SARS-CoV-2 Not Detected Expected Result: Not Detected _ Real-time, RT-PCR performed on the [employer] System by the [facility]. Negative results do not preclude SARS-CoV-2 infection and should not be used as the sole basis for treatment or other patient management decisions. This assay was developed by [employer] and distributed under an Emergency Use Authorization (EUA) granted by the FDA for the qualitative detection of SARS-CoV-2 nucleic acid. [place] Test Performed by [facility] [employer] [facility], [address] [place] [id number] Specimen Source Comment:Nasopharyngea l Swab [place] Manual Differentialon 2019 Absolute Baso # 0.0 10*3/uL 0 - 0.2 10*3/uL [place] Absolute Eos # 0.3 10*3/uL 0 - 0.5 10*3/uL [place] Absolute Lymph # 1.7 10*3/uL 1.1 - 4.5 10*3/uL [place] Absolute [place] # 0.8 10*3/uL 0.2 - 1.1 10*3/uL [place] Absolute Neut # 3.6 10*3/uL 2.2 - 8.2 10*3/uL [place] Anisocytosis Ql (Bld) Slight [facility] Bands 1 % 0 - 3 % [facility] [place] Basophils 0 % 0 - 2 % [facility] [place] Eosinophils 5 % 1 - 6 % [facility]- [place] Hypochromia Slight [facility] Interpretation and review of laboratory results Abnormal [facility], [place] Lymphocytes 27 % 20 - 40 % [facility] Monocytes 12 % High 2 - 10 % [facility] [place] PLATELETS, LARGE Slight [facility] Poikilocytes Slight [facility] [place] RBC morphology finding Nom (Bld) ABNORMAL [facility], [place] Seg Neutrophils 55 % 40 - 80 % [facility]- [place] TOTAL CELLS COUNTED 100 [facility], [place] Test Performed by [facility], [address] [place], [place] [address] [facility], [place] Otheron 02-02-2020 Blood Culture, Routine No growth at 5 days. [facility], [place] Test Performed by [facility], [address] [place] [id number] Specimen Source Comment:Blood [facility], [place] XR CHEST PORTABLEon 02-02-20 20 [facility], [facility] Incoming Radiology Results From [facility] - 02/02/2020 7:39 PM EDT Patient Name: CHARLIE NGUYEN ---Diagnostic Radiology--- Exam Date/Time 02/02/2020 16:25:00 EDT Exam CR Chest Portable Ordering Physician YAMILKA STEWART Accession Number [id number] CPT4 Codes 72362 () Reason For Exam hypoxia Report CHEST (Frontal View) History: Hypoxia Comparison: 01/27/2020 Findings: Frontal chest view shows right pleural thickening and linear basilar atelectasis. Both lungs show interstitial prominence without acute infiltrate or congestion. The heart is normal in size. There are atherosclerotic calcifications. There are multiple remote right ribs fractures. There is mild rightward tracheal deviation, similar to last exam. There is no pleural effusion or other significant interval change. Report Dictated on --- Final --- Dictating Physician: MD SABRINA, ALEXIA Signed Date and Time: 02/02/2020 7:37 pm Signed by: MD BENNETT AHMAD Transcribed Date and Time: 02/02/2020 7:38 [place] Patient Name: CHARLIE NGUYEN ---Diagnostic Radiology--- Exam Date/Time 02/02/2020 16:25:00 EDT Exam CR Chest Portable Ordering Physician YAMILKA STEWART Accession Number [id number] CPT4 Codes 58733 () Reason For Exam hypoxia Report CHEST (Frontal View) History: Hypoxia Comparison: 01/27/2020 Findings: Frontal chest view shows right pleural thickening and linear basilar atelectasis. Both lungs show interstitial prominence without acute infiltrate or congestion. The heart is normal in size. There are atherosclerotic calcifications. There are multiple remote right ribs fractures. There is mild rightward tracheal deviation, similar to last exam. There is no pleural effusion or other significant interval change. Report Dictated on --- Final --- Dictating Physician: MD BENNETT AHMAD Signed Date and Time: 02/02/2020 7:37 pm Signed by: MD BENNETT AHMAD Transcribed Date and Time: 02/02/2020 7:38 [place] NM BONE SCAN LIMITEDon 01-31 Patient Name: CHARLIE NGUYEN ---Nuc Med--- Exam Date/Time 02/01/2020 13:27:26 EDT Exam NM Bone Imaging Limited Ordering Physician DEJA KOEHLER Accession Number [id number] CPT4 Codes 49115 () Reason For Exam R TKA pain Report BONE SCINTIGRAPHY (LIMITED) CLINICAL INDICATION: Painful right knee arthroplasty Delayed scintigraphic images of the knees was performed in multiple projections following the intravenous administration of 23 mCi of technetium-99m MDP. COMPARISON: Plain films of the knees dated 01/29/2020 FINDINGS: Bilateral knee arthroplasties are noted. The left knee arthroplasty is unremarkable in appearance. There is abnormal tracer uptake surrounding both the tibial and femoral components of the patient's right total knee arthroplasty. IMPRESSION: Abnormal tracer uptake surrounding both the tibial and femoral components of the patient's right knee arthroplasty. This can be seen in the setting of infection or loosening. If there is clinical concern for infection, radiolabeled leukocyte scan may be helpful. Report Dictated on --- Final --- Dictating Physician: MD CARPENTER JONATHAN R Signed Date and Time: 02/01/2020 3:36 pm Signed by: MD CARPENTER JONATHAN R Transcribed Date and Time: 02/01/2020 3:37 [place] [facility], [facility] Incoming Radiology Results From [facility] - 02/01/2020 3:38 PM EDT Patient Name: CHARLIE NGUYEN ---Nuc Med--- Exam Date/Time 02/01/2020 13:27:26 EDT Exam NM Bone Imaging Limited Ordering Physician DEJA KOEHLER Accession Number [id number] CPT4 Codes 08437 () Reason For Exam R TKA pain Report BONE SCINTIGRAPHY (LIMITED) CLINICAL INDICATION: Painful right knee arthroplasty Delayed scintigraphic images of the knees was performed in multiple projections following the intravenous administration of 23 mCi of technetium-99m MDP. COMPARISON: Plain films of the knees dated 01/29/2020 FINDINGS: Bilateral knee arthroplasties are noted. The left knee arthroplasty is unremarkable in appearance. There is abnormal tracer uptake surrounding both the tibial and femoral components of the patient's right total knee arthroplasty. IMPRESSION: Abnormal tracer uptake surrounding both the tibial and femoral components of the patient's right knee arthroplasty. This can be seen in the setting of infection or loosening. If there is clinical concern for infection, radiolabeled leukocyte scan may be helpful. Report Dictated on --- Final --- Dictating Physician: MD CARPENTER JONATHAN R Signed Date and Time: 02/01/2020 3:36 pm Signed by: MD CARPENTER JONATHAN R Transcribed Date and Time: 02/01/2020 3:37 [place] Basic Metabolic Panelon 09-0 Anion gap [Moles/Vol] 11 mmol/L [place] Calcium [Mass/Vol] 9.0 mg/dL 8.4 - 10. 4 mg/dL [place] Chloride [Moles/Vol] 105 mmol/L 98 - 10 7 mmol/L [place] CO2 [Moles/Vol] 24 mmol/L 22 - 30 mmol/L [place] Creatinine [Mass/Vol] 0.41 mg/dL Low 0.52 - 1.25 mg/dL [place] EGFR IF NonAfrican [place] >90.0 >60 mL/min [place] Comment on above: KDIGO guidelines pro vide the following GFR categories: Stage GFR(ml/min/1.73 m2) Terms G1 >=90 Normal or high G2 60-89 Mildly decreased* G3a 45-59 Mildly to moderately decreased G3b 30-44 Moderately to severely decreased G4 15-29 Severely decreased G5 <15 Kidney failure *Relative to young adult level. In the absence of evidence of kidney damage, neither GFR category G1 nor G2 fulfill the criteria for CKD. The CKD-EPI equation is validated in individuals 18 years of age and older. Currently the best equation for estimating glomerular filtration rate (GFR) from serum creatinine in children is the Bedside Rosales equation. It is less accurate in patients with extremes of muscle mass, restriction of dietary protein, ingestion of creatine, extra-renal metabolism of creatinine, or treatment with medications that affect renal tubular creatinine secretion. GFR/1.73 sq M predicted among blacks MDRD (S/P/Bld) [Vol rate/Area] mL/min/{1.73_m2} >60 mL/min [place] Glucose [Mass/Vol] 93 mg/dL 70 - 100 mg/dL [place] Interpretation and review of laboratory results Abnormal [place] Potassium [Moles/Vol] 3.7 mmol/L 3.5 - 5.1 mmol/L [place] Sodium [Moles/Vol] 140 mmol/L 135 - 145 mmol/L [place] Urea nitrogen [Mass/Vol] 8 mg/dL 7 - 20 mg/d L [place] Test [facility]formed by [facility], [address], [place], [place] [address] [place] C-Reactive Proteinon 020 CRP [Mass/Vol] 21.7 mg/L High 0 - 6 mg/L [place] Comment on above: . Interpretation and review of laboratory results Abnormal [place] Test Performed by [facility], [address], [place], [place] [address] [place] CBC Auto Differentialon 09-0 Absolute Baso # 0.1 10*3/uL 0 - 0.2 10*3/uL [place] Absolute Neut # 2.8 10*3/uL 1.8 - 7 10*3/uL [place] Basophils/100 WBC (Bld) 1.0 % 0 - 2 % [place] Eosinophils (Bld) [#/Vol] 0.3 10*3/uL 0 - 0.5 10*3/uL [place] Eosinophils/100 WBC (Bld) 5.4 % 1 - 6 % [place] Erythrocyte distribution width (RBC) [Ratio] 15.8 % High 11.5 - 14.5 % [place] Granulocytes/100 WBC (Bld) 49.4 % 40 - 80 % [place] Hematocrit (Bld) [Volume fraction] 36.8 % 35 - 47 % [place] Hemoglobin (Bld) [Mass/Vol] 11.8 g/dL 11.7 - 16 g/dL [place] Interpretation and review of laboratory results Abnormal [place] Lymphocytes (Bld) [#/Vol] 1.9 10*3/uL 1 - 4.3 10*3/uL [place] Lymphocytes/100 WBC (Bld) 33.6 % 20 - 40 % [place] MCH (RBC) [Entitic mass] 27.6 pg 26 - 34 pg [place] MCHC (RBC) [Mass/Vol] 31.9 % Low 32 - 36 % [place] MCV (RBC) [Entitic vol] 86.4 fL 79 - 98 fL [place], [place] Monocytes (Bld) [#/Vol] 0.6 10*3/uL 0 - 0.8 10*3/uL [place] Monocytes/100 WBC (Bld) 10.6 % High 2 - 10 % [place] Platelet mean volume (Bld) [Entitic vol] 8.4 fL 7.4 - 10.4 fL [place] Platelets (Bld) [#/Vol] 264 10*3/uL 140 - 440 10*3/uL [place] RBC (Bld) [#/Vol] 4.26 10*6/uL 3.8 - 5.2 10*6/uL [place] WBC (Bld) [#/Vol] 5.6 10*3/uL 3.6 - 10.7 10*3/uL [place] Test Performed by [facility], [facility] [address] [place], [place] [id number] [place] [address] Sedimentation Rateon 020 Interpretation and review of laboratory results Abnormal [place] Sed Rate 38 mm/h High 0 - 20 mm/h [place] Test Performed by [facility], [address] [place], [place] [id number] [place] [address] Basic Metabolic Panelon 08- Anion gap [Moles/Vol] 8 mmol/L [place] Calcium [Mass/Vol] 8.0 mg/dL Low 8.4 - 10. 4 mg/dL [place] Chloride [Moles/Vol] 108 mmol/L High 98 - 10 7 mmol/L [place] CO2 [Moles/Vol] 25 mmol/L 22 - 30 mmol/L [place] Creatinine [Mass/Vol] 0.4 mg/dL Low 0.52 - 1.25 mg/dL [place] EGFR IF NonAfrican [place] >90.0 >60 mL/min [place] Comment on above: KDIGO guidelines pro vide the following GFR categories: Stage GFR(ml/min/1.73 m2) Terms G1 >=90 Normal or high G2 60-89 Mildly decreased* G3a 45-59 Mildly to moderately decreased G3b 30-44 Moderately to severely decreased G4 15-29 Severely decreased G5 <15 Kidney failure *Relative to young adult level. In the absence of evidence of kidney damage, neither GFR category G1 nor G2 fulfill the criteria for CKD. The CKD-EPI equation is validated in individuals 18 years of age and older. Currently the best equation for estimating glomerular filtration rate (GFR) from serum creatinine in children is the Bedside Rosales equation. It is less accurate in patients with extremes of muscle mass, restriction of dietary protein, ingestion of creatine, extra-renal metabolism of creatinine, or treatment with medications that affect renal tubular creatinine secretion. GFR/1.73 sq M predicted among blacks MDRD (S/P/Bld) [Vol rate/Area] mL/min/{1.73_m2} >60 mL/min [place] Glucose [Mass/Vol] 95 mg/dL 70 - 100 mg/dL [place] Interpretation and review of laboratory results Abnormal [place] Potassium [Moles/Vol] 3.9 mmol/L 3.5 - 5.1 mmol/L [place] Sodium [Moles/Vol] 140 mmol/L 135 - 145 mmol/L [place] Urea nitrogen [Mass/Vol] 13 mg/dL 7 - 20 mg/d L [place] Test Performed by [facility], [address] [place], [place] [address] [place] CBC Auto Differentialon 08-3 Absolute Baso # 0.1 10*3/uL 0 - 0.2 10*3/uL [place] Absolute Neut # 4.6 10*3/uL 1.8 - 7 10*3/uL [place] Basophils/100 WBC (Bld) 1.1 % 0 - 2 % [place] Eosinophils (Bld) [#/Vol] 0.5 10*3/uL 0 - 0.5 10*3/uL [place] Eosinophils/100 WBC (Bld) 6.6 % High 1 - 6 % [place] Erythrocyte distribution width (RBC) [Ratio] 16.4 % High 11.5 - 14.5 % [place] Granulocytes/100 WBC (Bld) 60.9 % 40 - 80 % [place] Hematocrit (Bld) [Volume fraction] 32.0 % Low 35 - 47 % [place] Hemoglobin (Bld) [Mass/Vol] 10.1 g/dL Low 11.7 - 16 g/dL [place] Interpretation and review of laboratory results Abnormal [place] Lymphocytes (Bld) [#/Vol] 1.7 10*3/uL 1 - 4.3 10*3/uL [place] Lymphocytes/100 WBC (Bld) 22.6 % 20 - 40 % [place] MCH (RBC) [Entitic mass] 27.9 pg 26 - 34 pg [place] MCHC (RBC) [Mass/Vol] 31.5 % Low 32 - 36 % [place] MCV (RBC) [Entitic vol] 88.6 fL 79 - 98 fL [place], [place] Monocytes (Bld) [#/Vol] 0.7 10*3/uL 0 - 0.8 10*3/uL [place] Monocytes/100 WBC (Bld) 8.8 % 2 - 10 % [place] Platelet mean volume (Bld) [Entitic vol] 8.9 fL 7.4 - 10.4 fL [place] Platelets (Bld) [#/Vol] 257 10*3/uL 140 - 440 10*3/uL [place] RBC (Bld) [#/Vol] 3.62 10*6/uL Low 3.8 - 5.2 10*6/uL [place] WBC (Bld) [#/Vol] 7.5 10*3/uL 3.6 - 10.7 10*3/uL [place] Test Performed by [facility] [employer] [facility], [address], [place], [place] [id number] [place] [address] C. difficile toxin Molecular on 01-29-2020 C. difficile toxin Molecular NEGATIVE Methodology - Real Time PCR ([employer]) Clinical judgement must be used when interpreting results. Positive results may reflect colonization. Indeterminate results suggest a new specimen be submitted. [place] Gastrointestinal Panel by MEI Nunn 01-29-2020 Gastrointestinal PCR Panel NEGATIVE: No targets were detected by the [employer] Gastrointestinal PCR Panel. _ The [employer] Gastrointestinal PCR Panel can detect the following targets: Campylobacter, Plesiomonas shigelloides, Salmonella, Vibrio species, Vibrio cholerae, Yersinia enterocolitica, Shiga toxin-producing E coli (STEC) including E coli O157, Enterotoxigenic E coli (ETEC), Shigella/Enteroinvasi ve E coli (EIEC), Cryptosporidium, Cyclospora cayetanensis, Entamoeba histolytica, Giardia lamblia, Adenovirus F 40/41, Astrovirus, Norovirus GI/GII, Rotavirus A, Sapovirus [place] Otheron 01-29-2020 Test Performed by [facility], [address] [place] [address] Specimen Source Comment:Stool [place] XR Knee Bilateral Standardon 01-29-2020 Patient Name: CHARLIE NGUYEN ---Diagnostic Radiology--- Exam Date/Time 01/29/2020 14:05:00 EDT Exam CR Knee 3 Views Bilateral Ordering Physician KILEY PARKINSON Accession Number [id number] CPT4 Codes 59630 () Reason For Exam fall, knee pain Report BILATERAL KNEES: CLINICAL INDICATION: Fall, knee pain. TECHNIQUE: AP, lateral, and tunnel views of the right and left knee COMPARISON: None. FINDINGS: Right knee: Status post cemented long stem right total knee arthroplasty in place with anatomic alignment. There is a healed fracture deformity of the fibular head. There is no acute fracture or subluxation identified on the submitted views. No bone lesion is noted. There is mild prepatellar soft tissue swelling with a possible joint effusion. Left knee: Status post left total knee arthroplasty in place with anatomic alignment.There is no acute fracture or subluxation identified on the submitted views. No bone lesion is noted. There is no evidence for left joint effusion. No soft tissue abnormality is identified. IMPRESSION: 1. Mild prepatellar soft tissue swelling with a possible joint effusion. 2. Left total knee arthroplasty in anatomic alignment. Report Dictated on --- Final --- Dictating Physician: MD ALONZO KEVIN Signed Date and Time: 01/29/2020 3:26 pm Signed by: MD ALONZO KEVIN Transcribed Date and Time: 01/29/2020 3:27 [facility]acorcHEDRICK MED[facility] CENTERCommtimize [place], [facility] Incoming Radiology Results From [facility] - 01/29/2020 3:27 PM EDT Patient Name: CHARLIE NGUYEN ---Diagnostic Radiology--- Exam Date/Time 01/29/2020 14:05:00 EDT Exam CR Knee 3 Views Bilateral Ordering Physician KILEY PARKINSON Accession Number [id number] CPT4 Codes 56009 () Reason For Exam fall, knee pain Report BILATERAL KNEES: CLINICAL INDICATION: Fall, knee pain. TECHNIQUE: AP, lateral, and tunnel views of the right and left knee COMPARISON: None. FINDINGS: Right knee: Status post cemented long stem right total knee arthroplasty in place with anatomic alignment. There is a healed fracture deformity of the fibular head. There is no acute fracture or subluxation identified on the submitted views. No bone lesion is noted. There is mild prepatellar soft tissue swelling with a possible joint effusion. Left knee: Status post left total knee arthroplasty in place with anatomic alignment.There is no acute fracture or subluxation identified on the submitted views. No bone lesion is noted. There is no evidence for left joint effusion. No soft tissue abnormality is identified. IMPRESSION: 1. Mild prepatellar soft tissue swelling with a possible joint effusion. 2. Left total knee arthroplasty in anatomic alignment. Report Dictated on --- Final --- Dictating Physician: MD ALONZO KEVIN Signed Date and Time: 01/29/2020 3:26 pm Signed by: MD ALONZO KEVIN Transcribed Date and Time: 01/29/2020 3:27 [facility]acorcHEDRICK [facility] CENTERCommtimize Add On Lab Teston 01-28-2020 Sodium [Moles/Vol] Rejected [facility] CampusBlastbeatHEDRICK MEDICAL CENTERCommtimize Test Performed by [facility], [address] [place], [place], [place] [id number] [place] [address] [employer] CBC auto differentialon 12-31 Erythrocyte distribution width (RBC) [Ratio] 16.2 % High 11.5 - 14.5 % [facility] [employer] LL[facility]ED[facility] MED[facility] CENTERLeaguevine [place] Hematocrit (Bld) [Volume fraction] 37.0 % 35 - 47 % [place] Hemoglobin (Bld) [Mass/Vol] 11.8 g/dL 11.7 - 16 g/dL [place] Interpretation and review of laboratory results Abnormal [place] MCH (RBC) [Entitic mass] 28.0 pg 26 - 34 pg [place] MCHC (RBC) [Mass/Vol] 31.8 % Low 32 - 36 % [place] MCV (RBC) [Entitic vol] 88.1 fL 79 - 98 fL [place] Platelet mean volume (Bld) [Entitic vol] 8.5 fL 7.4 - 10.4 fL [place] Platelets (Bld) [#/Vol] 280 10*3/uL 140 - 440 10*3/uL [place] RBC (Bld) [#/Vol] 4.20 10*6/uL 3.8 - 5.2 10*6/uL [place] WBC (Bld) [#/Vol] 9.1 10*3/uL 3.6 - 10.7 10*3/uL [place] Test Performed by [facility], [address] [place], [place], [place] [address] [place] Comprehensive Metabolic Pane l w/ Reflex to MGon 01-28-2020 Albumin [Mass/Vol] 3.4 g/dL Low 3.5 - 5 g/dL [place] ALP [Catalytic activity/Vol] 98 U/L 38 - 126 U/L [place] ALT [Catalytic activity/Vol] 13 U/L 0 - 34 U/L [place] Comment on above: The ALT test is perf ormed by an updated assay method. Please note that the reference intervals have been changed and are now sex specific. Anion gap [Moles/Vol] 6 mmol/L [place] AST [Catalytic activity/Vol] 26 U/L 15 - 46 U/L [place] Bilirubin Ql (U) 0.3 mg/dL 0.2 - 1.3 mg/dL [place] Calcium [Mass/Vol] 8.0 mg/dL Low 8.4 - 10. 4 mg/dL [place] Chloride [Moles/Vol] 102 mmol/L 98 - 10 7 mmol/L [place] CO2 [Moles/Vol] 30 mmol/L 22 - 30 mmol/L [place] Creatinine [Mass/Vol] 0.46 mg/dL Low 0.52 - 1.25 mg/dL [place] EGFR IF NonAfrican [place] >90.0 >60 mL/min [place] Comment on above: KDIGO guidelines pro vide the following GFR categories: Stage GFR(ml/min/1.73 m2) Terms G1 >=90 Normal or high G2 60-89 Mildly decreased* G3a 45-59 Mildly to moderately decreased G3b 30-44 Moderately to severely decreased G4 15-29 Severely decreased G5 <15 Kidney failure *Relative to young adult level. In the absence of evidence of kidney damage, neither GFR category G1 nor G2 fulfill the criteria for CKD. The CKD-EPI equation is validated in individuals 18 years of age and older. Currently the best equation for estimating glomerular filtration rate (GFR) from serum creatinine in children is the Bedside Rosales equation. It is less accurate in patients with extremes of muscle mass, restriction of dietary protein, ingestion of creatine, extra-renal metabolism of creatinine, or treatment with medications that affect renal tubular creatinine secretion. GFR/1.73 sq M predicted among blacks MDRD (S/P/Bld) [Vol rate/Area] mL/min/{1.73_m2} >60 mL/min [place] Glucose [Mass/Vol] 91 mg/dL 70 - 100 mg/dL [place] Interpretation and review of laboratory results Abnormal [place] Potassium [Moles/Vol] 3.2 mmol/L Low 3.5 - 5.1 mmol/L [place] Protein [Mass/Vol] 7.1 g/dL 6.3 - 8.2 g/dL [place] Sodium [Moles/Vol] 138 mmol/L 135 - 145 mmol/L [place] Urea nitrogen [Mass/Vol] 20 mg/dL 7 - 20 mg/d L [place] Test Performed by [facility], [address] [place] [id number] [place] [address] EKG 12 Lead - Chest Painon 0 01-28-2020 [facility] Test Date: 2020-01-27 Pat Name: Charlie Nguyen Department: 01 Room: 260 Gender: F Churn Tender: GISELLE : 1955 Requested By: LEW JOHNSON Order Number: [id number] Reading MD: Sulaiman Jc Measurements Intervals [place] Rate: 53 P: [place]: QRS: -4 QRSD: 106 T: 244 QT: 476 QTc: 447 Interpretive Statements SINUS BRADYCARDIA BORDERLINE INTRAVENTRICULAR CONDUCTION DELAY BORDERLINE REPOLARIZATION ABNORMALITY Electronically Signed On 01-28-2020 13:03:43 EDT by Sulaiman Govenlock [place], [facility] Incoming Cardiology Results From [facility] - 01/28/2020 1:04 PM EDT [facility] Test Date: 2020-01-27 Pat Name: Charlie Nguyen Department: 01 Room: 260 Gender: F Churn Tender: GISELLE : 1955 Requested By: LEW JOHNSON Order Number: [id number] Reading MD: Sulaiman Jc Measurements Intervals [place] Rate: 53 P: [place]: QRS: -4 QRSD: 106 T: 244 QT: 476 QTc: 447 Interpretive Statements SINUS BRADYCARDIA BORDERLINE INTRAVENTRICULAR CONDUCTION DELAY BORDERLINE REPOLARIZATION ABNORMALITY Electronically Signed On 01-28-2020 13:03:43 EDT by Sulaiman Jc [employer] [facility] Magnesiumon 01-28-2020 Magnesium [Mass/Vol] 1.7 mg/dL 1.6 - 2 .3 mg/dL [place] Test Performed by [facility], [address], [place], [place] [address] [employer] [place] Manual Differentialon 2019 Absolute Baso # 0.0 10*3/uL 0 - 0.2 10*3/uL [facility] [employer], [place] Absolute Eos # 0.1 10*3/uL 0 - 0.5 10*3/uL [place] Absolute Lymph # 1.4 10*3/uL 1.1 - 4.5 10*3/uL [facility] [place] Absolute [place] # 0.5 10*3/uL 0.2 - 1.1 10*3/uL [facility], [place] Absolute Neut # 7.1 10*3/uL 2.2 - 8.2 10*3/uL [facility], [place] Anisocytosis Ql (Bld) Slight [facility], [place] Bands 0 % 0 - 3 % [facility], [place] Basophils 0 % 0 - 2 % [facility], [place] Eosinophils 1 % 1 - 6 % [facility], [place] Hypochromia Slight [facility], [place] Interpretation and review of laboratory results Abnormal [place] Lymphocytes 15 % Low 20 - 40 % [facility], [place] Monocytes 6 % 2 - 10 % [facility] [place], [place] Poikilocytes Slight [facility], [place] Polychromasia [place] RBC morphology finding Nom (Bld) ABNORMAL [facility], [place] Seg Neutrophils 78 % 40 - 80 % [facility], [place] TOTAL CELLS COUNTED 100 [place] TOXIC VACUOLES [place] Test Performed by [facility], [address] [place], [place] [address] [place] ACETAMINOPHEN LEVELon 2019 Acetaminophen [Mass/Vol] <10.0 10 - 30 ug/mL [place] CBC Auto Differentialon 12-31 Absolute Baso # 0.2 10*3/uL 0 - 0.2 10*3/uL [facility], [place] Absolute Neut # 7.0 10*3/uL 1.8 - 7 10*3/uL [facility], [place] Basophils/100 WBC (Bld) 1.4 % 0 - 2 % [place] Eosinophils (Bld) [#/Vol] 0.4 10*3/uL 0 - 0.5 10*3/uL [facility], [place] Eosinophils/100 WBC (Bld) 3.5 % 1 - 6 % [place] Erythrocyte distribution width (RBC) [Ratio] 16.2 % High 11.5 - 14.5 % [place] Granulocytes/100 WBC (Bld) 67.4 % 40 - 80 % [place] Hematocrit (Bld) [Volume fraction] 38.0 % 35 - 47 % [place] Hemoglobin (Bld) [Mass/Vol] 12.2 g/dL 11.7 - 16 g/dL [place] Lymphocytes (Bld) [#/Vol] 2.2 10*3/uL 1 - 4.3 10*3/uL [place] Lymphocytes/100 WBC (Bld) 21.4 % 20 - 40 % [place] MCH (RBC) [Entitic mass] 27.8 pg 26 - 34 pg [place] MCHC (RBC) [Mass/Vol] 32.0 % 32 - 36 % [place] MCV (RBC) [Entitic vol] 86.7 fL 79 - 98 fL [place], [place] Monocytes (Bld) [#/Vol] 0.7 10*3/uL 0 - 0.8 10*3/uL [place] Monocytes/100 WBC (Bld) 6.3 % 2 - 10 % [place] Platelet mean volume (Bld) [Entitic vol] 8.4 fL 7.4 - 10.4 fL [place] Platelets (Bld) [#/Vol] 318 10*3/uL 140 - 440 10*3/uL [place] RBC (Bld) [#/Vol] 4.38 10*6/uL 3.8 - 5.2 10*6/uL [place] WBC (Bld) [#/Vol] 10.5 10*3/uL 3.6 - 10.7 10*3/uL [place] CKon 01-27-2020 Total CK 31 U/L 30 - 170 U/L [place] CT Head WO Contraston 2019 Patient Name: CHARLIE NGUYEN ---CT--- Exam Date/Time 01/27/2020 17:32:[address] Head or Brain w/o Contrast Ordering Physician BENJAMIN JOHNSON DANIEL M Accession Number [id number] CPT4 Codes 84211 () Reason For Exam weakness, found on ground Report CT BRAIN WITHOUT CONTRAST CLINICAL INDICATION: weakness, found on ground TECHNIQUE: CT scan of the brain without IV contrast. Multiplanar reformations. COMPARISON: September,. FINDINGS: No apparent mass or mass effect, hemorrhage, midline shift or hydrocephalus. No evidence of acute cortical infarct. No abnormal, extra-axial fluid or air collection. Age-related volume loss. Osseous calvarium grossly intact. IMPRESSION: 1. No acute intracranial findings. Report Dictated on Workstation: ALLEN --- Final --- Dictating Physician: MD PABLO WENDELL Signed Date and Time: 01/27/2020 5:40 pm Signed by: MD PABLO WENDELL Transcribed Date and Time: 01/27/2020 5:41 [place], [facility] Incoming Radiology Results From [facility] - 01/27/2020 5:41 PM EDT Patient Name: CHARLIE NGUYEN ---CT--- Exam Date/Time 01/27/2020 17:32:[address] Head or Brain w/o Contrast Ordering Physician BENJAMIN JOHNSON DANIEL M Accession Number [id number] CPT4 Codes 82237 () Reason For Exam weakness, found on ground Report CT BRAIN WITHOUT CONTRAST CLINICAL INDICATION: weakness, found on ground TECHNIQUE: CT scan of the brain without IV contrast. Multiplanar reformations. COMPARISON: September,. FINDINGS: No apparent mass or mass effect, hemorrhage, midline shift or hydrocephalus. No evidence of acute cortical infarct. No abnormal, extra-axial fluid or air collection. Age-related volume loss. Osseous calvarium grossly intact. IMPRESSION: 1. No acute intracranial findings. Report Dictated on Workstation: ALLEN --- Final --- Dictating Physician: MD PABLO WENDELL Signed Date and Time: 01/27/2020 5:40 pm Signed by: MD PABLO WENDELL Transcribed Date and Time: 01/27/2020 5:41 [place] Comprehensive Metabolic Pane [facility] 01-27-2020 Albumin [Mass/Vol] 3.5 g/dL 3.5 - 5 g/dL [place] ALP [Catalytic activity/Vol] 102 U/L 38 - 126 U/L [place] ALT [Catalytic activity/Vol] 14 U/L 0 - 34 U/L [place] Comment on above: The ALT test is perf ormed by an updated assay method. Please note that the reference intervals have been changed and are now sex specific. Anion gap [Moles/Vol] 6 mmol/L [place] AST [Catalytic activity/Vol] 26 U/L 15 - 46 U/L [place] Bilirubin Ql (U) 0.4 mg/dL 0.2 - 1.3 mg/dL [place] Calcium [Mass/Vol] 8.5 mg/dL 8.4 - 10. 4 mg/dL [place] Chloride [Moles/Vol] 98 mmol/L 98 - 10 7 mmol/L [place] CO2 [Moles/Vol] 35 mmol/L High 22 - 30 mmol/L [place] Creatinine [Mass/Vol] 0.61 mg/dL 0.52 - 1.25 mg/dL [place] EGFR IF NonAfrican [place] >90.0 >60 mL/min [place] Comment on above: KDIGO guidelines pro vide the following GFR categories: Stage GFR(ml/min/1.73 m2) Terms G1 >=90 Normal or high G2 60-89 Mildly decreased* G3a 45-59 Mildly to moderately decreased G3b 30-44 Moderately to severely decreased G4 15-29 Severely decreased G5 <15 Kidney failure *Relative to young adult level. In the absence of evidence of kidney damage, neither GFR category G1 nor G2 fulfill the criteria for CKD. The CKD-EPI equation is validated in individuals 18 years of age and older. Currently the best equation for estimating glomerular filtration rate (GFR) from serum creatinine in children is the Bedside Rosales equation. It is less accurate in patients with extremes of muscle mass, restriction of dietary protein, ingestion of creatine, extra-renal metabolism of creatinine, or treatment with medications that affect renal tubular creatinine secretion. GFR/1.73 sq M predicted among blacks MDRD (S/P/Bld) [Vol rate/Area] mL/min/{1.73_m2} >60 mL/min [place] Glucose [Mass/Vol] 100 mg/dL 70 - 100 mg/dL [place] Potassium [Moles/Vol] 2.6 mmol/L Critically low 3.5 - 5.1 mmol/L [place] Protein [Mass/Vol] 7.3 g/dL 6.3 - 8.2 g/dL [place] Sodium [Moles/Vol] 140 mmol/L 135 - 145 mmol/L [place] Urea nitrogen [Mass/Vol] 26 mg/dL High 7 - 20 mg/d L [place] Test Performed by [facility], [address] Magnesiumon 01-27-2020 Magnesium [Mass/Vol] 1.8 mg/dL 1.6 - 2 .3 mg/dL [place] Otheron 01-27-2020 Interpretation and review of laboratory results Abnormal [place] Test Performed by [facility], [address] [place], [address] Test Performed by [facility], [address] [place], [address] Salicylateon 01-27-2020 Salicylate Lvl <1.0 0 - 20 mg/dL [place] Troponinon 01-27-2020 Troponin I.cardiac [Mass/Vol] ng/mL 0 - 0.034 ng/mL [place] Comment on above: . Test Performed by [facility], [address] Urinalysison 01-27-2020 AMORPHOUS CRYSTAL Few Abnormal Negative /[HPF] [place] Comment on above: . Appearance (U) Ex.Turbid Abnormal Clear NA [place] Comment on above: . Bacteria, UA Few Abnormal Negative /[HPF] [place] Comment on above: . Bilirubin Urine Negative Negative mg/dL [place] Comment on above: . Color (U) Yellow Lt. Yellow NA [place] Comment on above: . Glucose, Ur Normal Normal (<70) mg/dL [place] Comment on above: . Interpretation and review of laboratory results Abnormal [place] Ketones Ql (U) 10 mg/dL Abnormal Negative [place] Comment on above: . LEUKOCYTES, UA 500 Abnormal Negative Simon/uL [place] Comment on above: . Nitrite, Urine Negative Negative NA [place] Comment on above: . Non-Squamous Epithelial 2 /[HPF] Abnormal Negative [place] Comment on above: . Occult Blood,Urine 0.2 mg/dL Abnormal Negative [place] Comment on above: . pH (U) 6.5 [pH] [place] Comment on above: . Protein (U) [Mass/Vol] 70 mg/dL Abnormal Negative [place], [place] Comment on above: . RBC (U) [#/Vol] 11-25 Abnormal 0 - 2 /[HPF] [place] Comment on above: . Specific [place], Urine 1.025 [place], [place] Comment on above: . Urobilinogen, Urine Normal Normal ( 0-1) mg/dL [place] Comment on above: . WBC Clumps, Urine Moderate Abnormal Negative /[HPF] [place] Comment on above: . WBC, UA >100 Abnormal 0 - 5 /[HPF] [place] Comment on above: . Test Performed by [facility], [address] [place], [place] [address] [place] Urine Drug Screenon 01-27-20 20 Amphetamines, urine Negative [place] Barbiturates, Ur Negative [place] Benzodiazepine Ur Qual Positive [place], [place] Cocaine Metabolites, Ur Negative [place], [place] Methadone, Urine Negative [place] Opiates, Urine Negative [place] Oxycodone Screen, Ur Negative [place] PCP, Urine Negative [place] Comment on above: The expected value f or all of the drugs listed above is Negative. The following drugs or drug groups have been screened for by Immunoassay at the following thresholds: Amphetamine class (1000 ng/mL), Barbiturates (200 ng/mL), Benzodiazepines (200 ng/mL), Cocaine (300 ng/mL), Methadone (300 ng/mL), Opiates (300 ng/mL), Oxycodone (100 ng/mL), and PCP (25 ng/mL). NOTE: These results are for medical treatment only. Analysis performed using non-forensic procedures. POSITIVE results are NOT confirmed by a more specific alternative method unless requested. If confirmation is needed, request confirmation under separate order. Test Performed by [facility] [employer] [facility], [address] [place], [place], [place] [address] [place] XR CHEST PORTABLEon 01-27-20 [place], [facility] Incoming Radiology Results From [facility] - 01/27/2020 6:12 PM EDT Patient Name: CHARLIE NGUYEN ---Diagnostic Radiology--- Exam Date/Time 01/27/2020 17:38:59 EDT Exam CR Chest Portable Ordering Physician BENJAMIN JOHNSON DANIEL M Accession Number [id number] CPT4 Codes 99565 () Reason For Exam weakness, cough Report CHEST PORTABLE CLINICAL INDICATION: weakness, cough TECHNIQUE: Single, portable chest x-ray. COMPARISON: October,. FINDINGS: Patient rotated to the right. Cardiac and mediastinal silhouette within normal limits. Lungs are grossly clear. No significant vascular congestion. No apparent pleural effusion or pneumothorax. Degenerative change again noted in the thoracic spine. Multiple, old right rib fracture deformities again evident. IMPRESSION: 1. Stable examination. No acute consolidation. Report Dictated on Workstation: ALLEN --- Final --- Dictating Physician: MD PABLO WENDELL Signed Date and Time: 01/27/2020 6:11 pm Signed by: MD PABLO WENDELL Transcribed Date and Time: 01/27/2020 6:12 [place] Patient Name: CHARLIE NGUYEN ---Diagnostic Radiology--- Exam Date/Time 01/27/2020 17:38:59 EDT Exam CR Chest Portable Ordering Physician BENJAMIN JOHNSON DANIEL M Accession Number [id number] CPT4 Codes 62412 () Reason For Exam weakness, cough Report CHEST PORTABLE CLINICAL INDICATION: weakness, cough TECHNIQUE: Single, portable chest x-ray. COMPARISON: October,. FINDINGS: Patient rotated to the right. Cardiac and mediastinal silhouette within normal limits. Lungs are grossly clear. No significant vascular congestion. No apparent pleural effusion or pneumothorax. Degenerative change again noted in the thoracic spine. Multiple, old right rib fracture deformities again evident. IMPRESSION: 1. Stable examination. No acute consolidation. Report Dictated on Workstation: ALLEN --- Final --- Dictating Physician: MD PABLO WENDELL Signed Date and Time: 01/27/2020 6:11 pm Signed by: MD PABLO WENDELL Transcribed Date and Time: 01/27/2020 6:12 [place] Sed Rateon 12-06-2019 Sed Rate 35 mm/hr High 0-20 [facility] Comment on above: Performed By: #### E SR #### [place] [address] CRPon 12-05-2019 CRP [Mass/Vol] 2.4 mg/dL High 0.0-0.8 [facility] Comment on above: Performed By: #### C RP3 #### [place] [address] Comprehensive Metabolic Pane rafiq 12-05-2019 Albumin [Mass/Vol] 3.5 g/dL Low 3.9-4.9 [facility] Comment on above: Performed By: #### C MP #### [place] [address] ALP [Catalytic activity/Vol] 75 U/L Normal 34-123 [facility] Comment on above: Performed By: #### C MP #### [place] [address] ALT [Catalytic activity/Vol] U/L Low 7-38 [facility] Comment on above: Performed By: #### C MP #### [place] [address] Anion gap [Moles/Vol] 10 mmol/L Normal 9-18 [facility] [place] [facility] Comment on above: Performed By: #### C MP #### [address], [place] [address] AST [Catalytic activity/Vol] 16 U/L Normal 13-35 [facility] Comment on above: Performed By: #### C MP #### [facility] [address] [place], [place] [address] Bilirubin [Mass/Vol] 0.2 mg/dL Normal 0.2-1.3 [facility] Comment on above: Performed By: #### C MP #### [facility] [address] [place], [place] [address] Calcium [Mass/Vol] 8.6 mg/dL Normal 8.5-10.2 [facility] Comment on above: Performed By: #### C MP #### [facility] [address] [place], [place] [address] Chloride [Moles/Vol] 98 mmol/L Normal 97-105 [facility] Comment on above: Performed By: #### C MP #### [facility] [address] [place], [place] [address] CO2 Blood 27 mmol/L Normal 22-30 [facility] Comment on above: Performed By: #### C MP #### [facility] [address] [place], [place] [address] Creatinine [Mass/Vol] 0.45 mg/dL Low 0.58-0.96 [facility] [place] [facility] Comment on above: Performed By: #### C MP #### [facility] [address] [place], [place] [address] Glucose [Mass/Vol] 79 mg/dL Normal 74-99 [facility] Comment on above: Result Comment: The [place] Diabetes Association (ADA) provides guidance for cutoff values for fasting glucose and random glucose. The ADA defines fasting as no caloric intake for at least 8 hours.Fasting plasma glucose results between 100 to 125 mg/dL indicate increased risk for diabetes (prediabetes). Fasting plasma glucose results greater than or equal to 126 mg/dL meet the criteria for diagnosis of diabetes. In the absence of unequivocal hyperglycemia, results should be confirmed by repeat testing. In a patient with classic symptoms of hyperglycemia or hyperglycemic crisis, random plasma glucose results greater than or equal to 200 mg/dL meet the criteria for diagnosis of diabetes. Reference: Standards of Medical Care in Diabetes 2016; [place] Diabetes Association. Diabetes Care. 2016;39(Suppl 1). Performed By: #### C MP #### [facility] [address] [place] [address] Potassium [Moles/Vol] 4.0 mmol/L Normal 3.7-5.1 [facility] [place] [facility] Comment on above: Performed By: #### C MP #### [facility] [address] [place] [address] Protein [Mass/Vol] 7.1 g/dL Normal 6.3-8.0 [facility] Comment on above: Performed By: #### C MP #### [facility] [address] [place] [address] Sodium [Moles/Vol] 135 mmol/L Low 136-144 [facility] Comment on above: Performed By: #### C MP #### [facility] [address] [place] [address] Urea nitrogen [Mass/Vol] 12 mg/dL Normal 7-21 [facility] Comment on above: Performed By: #### C MP #### [facility] [address] [place] [address] Hemogram/Diffon 12-05-2019 Abs Immature Grans 0.03 thou/cmm Normal 0.00-0.05 [facility] [place] [facility] Comment on above: Performed By: #### C BCD1 #### [facility] [address] [place] [address] Abs Neut (ANC) 5.08 thou/cmm Normal 1.56-6.13 [facility] Comment on above: Performed By: #### C BCD1 #### [facility] [address] [place] [address] Abs. Baso 0.07 thou/cmm Normal 0.01-0.08 [facility] Comment on above: Performed By: #### C BCD1 #### [facility] [address] [place] [address] Abs. [place] 0.74 thou/cmm High 0.27-0.70 [facility] Comment on above: Performed By: #### C BCD1 #### [facility] [address] [place], [place] [address] Basophils/100 WBC (Bld) 0.8 % Normal [facility] Comment on above: Performed By: #### C BCD1 #### [facility] [address] [place], [place] [address] Eosinophils (Bld) [#/Vol] 0.57 thou/cmm High 0.00-0.31 [facility] Comment on above: Performed By: #### C BCD1 #### [facility] [address] [place], [place] [address] Eosinophils/100 WBC (Bld) 6.6 % Normal [facility] Comment on above: Performed By: #### C BCD1 #### [facility] [address] [place], [place] [address] Erythrocyte distribution width (RBC) [Ratio] 15.0 % High 11.7-14.4 [facility] Comment on above: Performed By: #### C BCD1 #### [facility] [address] [place], [place] [address] Hematocrit (Bld) [Volume fraction] 34.9 % Normal 34.1-44.9 [facility] Comment on above: Performed By: #### C BCD1 #### [facility] [address] [place], [place] [address] Hemoglobin (Bld) [Mass/Vol] 10.8 g/dL Low 11.2-15.7 [facility] Comment on above: Performed By: #### C BCD1 #### [facility] [address] [place], [place] [address] Immature Grans 0.30 % Normal [facility] Comment on above: Performed By: #### C BCD1 #### [facility] [address] [place], [place] [address] Lymphocytes (Bld) [#/Vol] 2.20 thou/cmm Normal 1.18-3.74 [facility] Comment on above: Performed By: #### C BCD1 #### [facility] [address] [place], [place] [address] Lymphocytes/100 WBC (Bld) 25.3 % Normal [facility] Comment on above: Performed By: #### C BCD1 #### [facility] [address] [place], [place] [address] MCH (RBC) [Entitic mass] 29.8 pg Normal 25.6-32.2 [facility] Comment on above: Performed By: #### C BCD1 #### [facility] [address] [place], [place] [address] MCHC (RBC) [Mass/Vol] 30.9 % Low 31.6-34.8 [facility] [place] [facility] Comment on above: Performed By: #### C BCD1 #### [facility] [address] [place] [address] MCV (RBC) [Entitic vol] 96.1 fL High 79.4-94.8 [facility] Comment on above: Performed By: #### C BCD1 #### [facility] [address] [place] [address] Monocytes/100 WBC (Bld) 8.5 % Normal [facility] Comment on above: Performed By: #### C BCD1 #### [facility] [address] [place] [address] Platelet mean volume (Bld) [Entitic vol] 10.3 fL Normal 9.4-12.3 [facility] Comment on above: Performed By: #### C BCD1 #### [facility] [address] [place] [address] Platelets (Bld) [#/Vol] 428 thou/cmm High 182-369 [facility] Comment on above: Performed By: #### C BCD1 #### [facility] [address] [place], [place] [address] RBC (Bld) [#/Vol] 3.63 mil/cmm Low 3.93-5.22 [facility] Comment on above: Performed By: #### C BCD1 #### [facility] [address] [place] [address] RDW SD 53.2 fl High 36.4-46.3 [facility] Comment on above: Performed By: #### C BCD1 #### [facility] [address] [place], [place] [address] Seg Neutrophil 58.5 % Normal [facility] Comment on above: Performed By: #### C BCD1 #### [facility] [address] [place] [address] WBC (Bld) [#/Vol] 8.69 thou/cmm Normal 3.98-10.04 [facility] Comment on above: Performed By: #### C BCD1 #### [place] [address] MDRD GFRon 12-05-2019 GFR/1.73 sq M predicted among non-blacks MDRD (S/P/Bld) [Vol rate/Area] mL/min/{1.73_m2} Normal >60mL/min/1. 73m2 [facility] Comment on above: Result Comment: If t he patient is , multiply the result by 1.210. Performed By: #### G FR #### [place] [address] Add On Lab Teston 11-04-2019 Sodium [Moles/Vol] Accepted [place] Comment on above: Specimen available & acceptable for analysis. Test Performed by [address] Basic Metabolic Panelon Anion gap [Moles/Vol] 8 mmol/L [place] Calcium [Mass/Vol] 9.1 mg/dL 8.4 - 10. 4 mg/dL [place] Chloride [Moles/Vol] 96 mmol/L Low 98 - 10 7 mmol/L [place] CO2 [Moles/Vol] 32 mmol/L High 22 - 30 mmol/L [place] Creatinine [Mass/Vol] 0.6 mg/dL 0.52 - 1.25 mg/dL [place] EGFR IF NonAfrican [place] >90.0 >60 mL/min [place] Comment on above: KDIGO guidelines pro vide the following GFR categories: Stage GFR(ml/min/1.73 m2) Terms G1 >=90 Normal or high G2 60-89 Mildly decreased* G3a 45-59 Mildly to moderately decreased G3b 30-44 Moderately to severely decreased G4 15-29 Severely decreased G5 <15 Kidney failure *Relative to young adult level. In the absence of evidence of kidney damage, neither GFR category G1 nor G2 fulfill the criteria for CKD. The CKD-EPI equation is validated in individuals 18 years of age and older. Currently the best equation for estimating glomerular filtration rate (GFR) from serum creatinine in children is the Bedside Rosales equation. It is less accurate in patients with extremes of muscle mass, restriction of dietary protein, ingestion of creatine, extra-renal metabolism of creatinine, or treatment with medications that affect renal tubular creatinine secretion. GFR/1.73 sq M predicted among blacks MDRD (S/P/Bld) [Vol rate/Area] mL/min/{1.73_m2} >60 mL/min [place] Glucose [Mass/Vol] 133 mg/dL High 70 - 100 mg/dL [place] Potassium [Moles/Vol] 3.4 mmol/L Low 3.5 - 5.1 mmol/L [place] Sodium [Moles/Vol] 137 mmol/L 135 - 145 mmol/L [place] Urea nitrogen [Mass/Vol] 22 mg/dL High 7 - 20 mg/d L [place] Body Fluid Cell Count with D ifferentialon 11-04-2019 Nucl Cell, Fluid [address] {cells}/uL [place] Sodium [Moles/Vol] SYNOVIAL [place] [facility] [address] [address] [place] Body Fluid Crystalon 020 Crystals LM Nom (Urine sed) Negative [place] Sodium [Moles/Vol] Synovial [place] Test Performed by [facility] [place] [address] [place] [address] [place] C-Reactive Proteinon 020 CRP [Mass/Vol] 41.4 mg/L High 0 - 6 mg/L [place] Comment on above: . Differential, Body Fluidon 0 11-04-2019 Eosinophils/100 WBC (Bld) 0 % [place] Comment on above: CORRECTED RESULT...P revious above value was 6, verified on 11/04/19 at 16:51 by [email or web address] . Lymphocytes/100 WBC (Bld) 1 % [place] Comment on above: CORRECTED RESULT...P revious above value was 4, verified on 11/04/19 at 16:51 by [email or web address] . Macrophage count 3 % [place] Comment on above: CORRECTED RESULT...P revious above value was 2, verified on 11/04/19 at 16:51 by [email or web address] . Neutrophils/100 WBC (Bld) 96 % [place] Comment on above: CORRECTED RESULT...P revious above value was 87, verified on 11/04/19 at 16:51 by [email or web address] . Other Cells, Fluid 0 % [place] Comment on above: all other cells are synovial lining cells CORRECTED RESULT...Previous above value was 1, verified on 11/04/19 at 16:52 by [email or web address] . Sodium [Moles/Vol] 100 mmol/L [place] Test Performed by [facility], [address] [place] [id number] [place] GRAM STAINon 11-04-2019 INR Coag (Bld) [Relative time] Many polymorphonuclear cells/lpf. No organisms seen. [place] Test Performed by [facility], [address] [place] [id number] Specimen Source Comment:Leg [place] Hemogram (CBC) w/Auto Diffon 11-04-2019 Absolute Baso # 0.0 10*3/uL 0 - 0.2 10*3/uL [place] Absolute Neut # 5.8 10*3/uL 1.8 - 7 10*3/uL [place] Basophils/100 WBC (Bld) 0.4 % 0 - 2 % [place] Eosinophils (Bld) [#/Vol] 0.2 10*3/uL 0 - 0.5 10*3/uL [place] Eosinophils/100 WBC (Bld) 2.8 % 1 - 6 % [place] Erythrocyte distribution width (RBC) [Ratio] 15.6 % High 11.5 - 14.5 % [place] Granulocytes/100 WBC (Bld) 71.8 % 40 - 80 % [place] Hematocrit (Bld) [Volume fraction] 33.7 % Low 35 - 47 % [place] Hemoglobin (Bld) [Mass/Vol] 11.4 g/dL Low 11.7 - 16 g/dL [place] Interpretation and review of laboratory results Abnormal [place] Lymphocytes (Bld) [#/Vol] 1.3 10*3/uL 1 - 4.3 10*3/uL [place] Lymphocytes/100 WBC (Bld) 16.4 % Low 20 - 40 % [place] MCH (RBC) [Entitic mass] 31.9 pg 26 - 34 pg [place] MCHC (RBC) [Mass/Vol] 33.7 % 32 - 36 % [place] MCV (RBC) [Entitic vol] 94.5 fL 79 - 98 fL [place] Monocytes (Bld) [#/Vol] 0.7 10*3/uL 0 - 0.8 10*3/uL [place] Monocytes/100 WBC (Bld) 8.6 % 2 - 10 % [place] Platelet mean volume (Bld) [Entitic vol] 7.8 fL 7.4 - 10.4 fL [place] Platelets (Bld) [#/Vol] 440 10*3/uL 140 - 440 10*3/uL [place] RBC (Bld) [#/Vol] 3.57 10*6/uL Low 3.8 - 5.2 10*6/uL [place] WBC (Bld) [#/Vol] 8.1 10*3/uL 3.6 - 10.7 10*3/uL [place] Test [facility]formed by [facility], [address] [place] [id number] [place] Metabolic Panelon 11-04-2019 Sodium [Moles/Vol] Negative [place] Otheron 11-04-2019 Interpretation and review of laboratory results Abnormal [place] Test Performed by [facility], [address] [place] [address] Protime-INRon 11-04-2019 INR Coag (PPP) [Relative time] 1.0 {INR} [place] Comment on above: Recommended Anticoag ulant Therapy: SEE BELOW ----- INR of 2.0 - 3.0 : - Prophylaxis of Venous Thrombosis (high-risk surgery) - Treatment of Venous Thrombosis - Treatment of Pulmonary Embolism (Includes tissue heart valves, Acute Myocardial Infarction to prevent systemic embolism, Valvular Heart Disease, and Atrial Fibrillation) ----- INR of 2.5 - 3.5 : - Mechanical Prosthetic Valves (high risk) - If oral anticoagulant therapy is used to prevent Myocardial Infarction PT Coag (PPP) [Time] 11.1 s 9 - 12 s [place] Comment on above: . Test Performed by [facility], [address] [place] [address] Sedimentation Rateon 020 Sed Rate 96 mm/h High 0 - 20 mm/h [place] TYPE AND SCREENon 11-04-2019 Sodium [Moles/Vol] AB [place] Test Performed by [facility], [address] [place] [address] XR CHEST PORTABLEon 11-04-[address] [facility] [address] [facility], [facility] 11/04/2019 7:34 PM EDT Patient Name: CHARLIE NGUYEN ---Diagnostic Radiology--- Exam Date/Time 11/04/2019 19:28:19 EDT Exam CR Chest Portable Ordering Physician DO BOWLES DORSEY R Accession Number [id number] CPT4 Codes 60333 () Reason For Exam pre-op Report Portable chest Clinical: Preop COMPARISON: October 24, 2019 portable chest Patient is slightly rotated in position. Heart size is stable. There is atherosclerotic disease of the aorta. No focal consolidation, pleural effusion or gross pneumothorax is seen. Remote, healed right-sided rib fracture deformities are again seen. Previously present right-sided PICC line catheter has been removed. Report Dictated on --- Final --- Dictated: 11/04/2019 7:32 pm Dictating Physician: MD CRUZ BRIAN Signed Date and Time: 11/04/2019 7:33 pm Signed by: MD CRUZ BRIAN Transcribed Date and Time: 11/04/2019 7:32 [place] Patient Name: CHARLIE NGUYEN ---Diagnostic Radiology--- Exam Date/Time 11/04/2019 19:28:19 EDT Exam CR Chest Portable Ordering Physician DO BOWLES DORSEY R Accession Number [id number] CPT4 Codes 09295 () Reason For Exam pre-op Report Portable chest Clinical: Preop COMPARISON: October 24, 2019 portable chest Patient is slightly rotated in position. Heart size is stable. There is atherosclerotic disease of the aorta. No focal consolidation, pleural effusion or gross pneumothorax is seen. Remote, healed right-sided rib fracture deformities are again seen. Previously present right-sided PICC line catheter has been removed. Report Dictated on --- Final --- Dictated: 11/04/2019 7:32 pm Dictating Physician: MD CRUZ BRIAN Signed Date and Time: 11/04/2019 7:33 pm Signed by: MD CRUZ BRIAN Transcribed Date and Time: 11/04/2019 7:32 [place] XR KNEE RIGHT (3 VIEWS)on [facility] Incoming Radiology Results From [facility] - 11/04/2019 2:47 PM EDT Patient Name: CHARLIE NGUYEN ---Diagnostic Radiology--- Exam Date/Time 11/04/2019 14:47:22 EDT Exam CR Knee 3 Views Right Ordering Physician DAVID FARRELL Accession Number [id number] CPT4 Codes 21641 () Reason For Exam right knee pain and reddness Report Right knee: . Clinical Information: Pain and redness Three views of the right knee were compared to the prior study 12/25/2016. 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 The position and alignment of the prosthetic components is reasonable. No lucency is identified around the unenhanced indicate loosening. There is no evidence of fracture or dislocation. No joint effusion is identified. There is a healed fracture of the proximal fibular diaphysis similar to the prior study. IMPRESSION: No acute process. Report Dictated on Workstation: [id number] --- Final --- Dictated: 11/04/2019 2:14 pm Dictating Physician: MD CRANDALL RISA Signed Date and Time: 11/04/2019 2:15 pm Signed by: MD CRANDALL RISA Transcribed Date and Time: 11/04/2019 2:14 [place] Patient Name: CHARLIE NGUYEN ---Diagnostic Radiology--- Exam Date/Time 11/04/2019 14:47:22 EDT Exam CR Knee 3 Views Right Ordering Physician DAVID FARRELL Accession Number [id number] CPT4 Codes 31525 () Reason For Exam right knee pain and reddness Report Right knee: . Clinical Information: Pain and redness Three views of the right knee were compared to the prior study 12/25/2016. 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 The position and alignment of the prosthetic components is reasonable. No lucency is identified around the unenhanced indicate loosening. There is no evidence of fracture or dislocation. No joint effusion is identified. There is a healed fracture of the proximal fibular diaphysis similar to the prior study. IMPRESSION: No acute process. Report Dictated on Workstation: [id number] --- Final --- Dictated: 11/04/2019 2:14 pm Dictating Physician: MD CRANDALL RISA Signed Date and Time: 11/04/2019 2:15 pm Signed by: MD CRANDALL RISA Transcribed Date and Time: 11/04/2019 2:14 [place] Basic Metabolic Panelon 09-30 Anion gap [Moles/Vol] 10 mmol/L [place] Calcium [Mass/Vol] 9.0 mg/dL 8.4 - 10. 4 mg/dL [place] Chloride [Moles/Vol] 93 mmol/L Low 98 - 10 7 mmol/L [place] CO2 [Moles/Vol] 36 mmol/L High 22 - 30 mmol/L [place] Creatinine [Mass/Vol] 0.63 mg/dL 0.52 - 1.25 mg/dL [place] EGFR IF NonAfrican [place] >90.0 >60 mL/min [place] Comment on above: KDIGO guidelines pro vide the following GFR categories: Stage GFR(ml/min/1.73 m2) Terms G1 >=90 Normal or high G2 60-89 Mildly decreased* G3a 45-59 Mildly to moderately decreased G3b 30-44 Moderately to severely decreased G4 15-29 Severely decreased G5 <15 Kidney failure *Relative to young adult level. In the absence of evidence of kidney damage, neither GFR category G1 nor G2 fulfill the criteria for CKD. The CKD-EPI equation is validated in individuals 18 years of age and older. Currently the best equation for estimating glomerular filtration rate (GFR) from serum creatinine in children is the Bedside Rosales equation. It is less accurate in patients with extremes of muscle mass, restriction of dietary protein, ingestion of creatine, extra-renal metabolism of creatinine, or treatment with medications that affect renal tubular creatinine secretion. GFR/1.73 sq M predicted among blacks MDRD (S/P/Bld) [Vol rate/Area] mL/min/{1.73_m2} >60 mL/min [place] Glucose [Mass/Vol] 115 mg/dL High 70 - 100 mg/dL [place] Potassium [Moles/Vol] 3.7 mmol/L 3.5 - 5.1 mmol/L [place] Sodium [Moles/Vol] 139 mmol/L 135 - 145 mmol/L [place] Urea nitrogen [Mass/Vol] 30 mg/dL High 7 - 20 mg/d L [place] CBC Auto Differentialon 05-2 Absolute Baso # 0.1 10*3/uL 0 - 0.2 10*3/uL [place] Absolute Neut # 5.8 10*3/uL 1.8 - 7 10*3/uL [place] Basophils/100 WBC (Bld) 0.9 % 0 - 2 % [place] Eosinophils (Bld) [#/Vol] 0.3 10*3/uL 0 - 0.5 10*3/uL [place] Eosinophils/100 WBC (Bld) 3.4 % 1 - 6 % [place] Erythrocyte distribution width (RBC) [Ratio] 15.5 % High 11.5 - 14.5 % [place] Granulocytes/100 WBC (Bld) 67.2 % 40 - 80 % [place] Hematocrit (Bld) [Volume fraction] 38.5 % 35 - 47 % [place] Hemoglobin (Bld) [Mass/Vol] 12.3 g/dL 11.7 - 16 g/dL [place] Interpretation and review of laboratory results Abnormal [place] Lymphocytes (Bld) [#/Vol] 1.5 10*3/uL 1 - 4.3 10*3/uL [place] Lymphocytes/100 WBC (Bld) 17.8 % Low 20 - 40 % [place] MCH (RBC) [Entitic mass] 30.7 pg 26 - 34 pg [place] MCHC (RBC) [Mass/Vol] 32.0 % 32 - 36 % [place] MCV (RBC) [Entitic vol] 96.0 fL 79 - 98 fL [place] Monocytes (Bld) [#/Vol] 0.9 10*3/uL High 0 - 0.8 10*3/uL [place] Monocytes/100 WBC (Bld) 10.7 % High 2 - 10 % [place] Platelet mean volume (Bld) [Entitic vol] 7.8 fL 7.4 - 10.4 fL [place] Platelets (Bld) [#/Vol] 333 10*3/uL 140 - 440 10*3/uL [place] RBC (Bld) [#/Vol] 4.01 10*6/uL 3.8 - 5.2 10*6/uL [place] WBC (Bld) [#/Vol] 8.7 10*3/uL 3.6 - 10.7 10*3/uL [place] Test Performed by [facility], [address] Calcium, Ionizedon 0 Interpretation and review of laboratory results Abnormal [place] Ionized Ca 4.30 mg/dL 4.3 - 5.2 mg/dL [place] pH (Bld) 7.47 [pH] High [place] Test Performed by [facility], [address] Hepatic Function Panelon Albumin [Mass/Vol] 3.8 g/dL 3.5 - 5 g/dL [place] ALP [Catalytic activity/Vol] 107 U/L 38 - 126 U/L [place] ALT [Catalytic activity/Vol] 67 U/L High 0 - 34 U/L [place] Comment on above: The ALT test is perf ormed by an updated assay method. Please note that the reference intervals have been changed and are now sex specific. AST [Catalytic activity/Vol] 51 U/L High 15 - 46 U/L [place] Bilirubin Ql (U) 0.6 mg/dL 0.2 - 1.3 mg/dL [place] Bilirubin.direct [Mass/Vol] 0.0 mg/dL 0 - 0.3 mg/dL [place] Protein [Mass/Vol] 8.2 g/dL 6.3 - 8.2 g/dL [place] MAGNESIUMon 10-25-2019 Magnesium [Mass/Vol] 1.8 mg/dL 1.6 - 2 .3 mg/dL [place] Otheron 10-25-2019 Interpretation and review of laboratory results Abnormal [place] Test Performed by [facility], [address] [place], [address], [place] Phosphoruson 10-25-2019 Phosphate [Mass/Vol] 5.3 mg/dL High 2.5 - 4 .5 mg/dL [place] Basic Metabolic Panelon 09-30 Anion gap [Moles/Vol] 9 mmol/L [place] Calcium [Mass/Vol] 8.5 mg/dL 8.4 - 10. 4 mg/dL [place] Chloride [Moles/Vol] 95 mmol/L Low 98 - 10 7 mmol/L [place] CO2 [Moles/Vol] 36 mmol/L High 22 - 30 mmol/L [place] Creatinine [Mass/Vol] 0.48 mg/dL Low 0.52 - 1.25 mg/dL [place] EGFR IF NonAfrican [place] >90.0 >60 mL/min [place] Comment on above: KDIGO guidelines pro vide the following GFR categories: Stage GFR(ml/min/1.73 m2) Terms G1 >=90 Normal or high G2 60-89 Mildly decreased* G3a 45-59 Mildly to moderately decreased G3b 30-44 Moderately to severely decreased G4 15-29 Severely decreased G5 <15 Kidney failure *Relative to young adult level. In the absence of evidence of kidney damage, neither GFR category G1 nor G2 fulfill the criteria for CKD. The CKD-EPI equation is validated in individuals 18 years of age and older. Currently the best equation for estimating glomerular filtration rate (GFR) from serum creatinine in children is the Bedside Rosales equation. It is less accurate in patients with extremes of muscle mass, restriction of dietary protein, ingestion of creatine, extra-renal metabolism of creatinine, or treatment with medications that affect renal tubular creatinine secretion. GFR/1.73 sq M predicted among blacks MDRD (S/P/Bld) [Vol rate/Area] mL/min/{1.73_m2} >60 mL/min [place] Glucose [Mass/Vol] 113 mg/dL High 70 - 100 mg/dL [place] Potassium [Moles/Vol] 3.6 mmol/L 3.5 - 5.1 mmol/L [place] Sodium [Moles/Vol] 139 mmol/L 135 - 145 mmol/L [place] Urea nitrogen [Mass/Vol] 26 mg/dL High 7 - 20 mg/d L [place] CBC Auto Differentialon 09-30 Absolute Baso # 0.1 10*3/uL 0 - 0.2 10*3/uL [place] Absolute Neut # 6.0 10*3/uL 1.8 - 7 10*3/uL [place] Basophils/100 WBC (Bld) 1.3 % 0 - 2 % [place] Eosinophils (Bld) [#/Vol] 0.3 10*3/uL 0 - 0.5 10*3/uL [place] Eosinophils/100 WBC (Bld) 3.3 % 1 - 6 % [place] Erythrocyte distribution width (RBC) [Ratio] 15.0 % High 11.5 - 14.5 % [place] Granulocytes/100 WBC (Bld) 68.0 % 40 - 80 % [place] Hematocrit (Bld) [Volume fraction] 36.4 % 35 - 47 % [place] Hemoglobin (Bld) [Mass/Vol] 11.9 g/dL 11.7 - 16 g/dL [place] Interpretation and review of laboratory results Abnormal [place] Lymphocytes (Bld) [#/Vol] 1.6 10*3/uL 1 - 4.3 10*3/uL [place] Lymphocytes/100 WBC (Bld) 17.8 % Low 20 - 40 % [place] MCH (RBC) [Entitic mass] 31.4 pg 26 - 34 pg [place] MCHC (RBC) [Mass/Vol] 32.7 % 32 - 36 % [place] MCV (RBC) [Entitic vol] 96.0 fL 79 - 98 fL [place] Monocytes (Bld) [#/Vol] 0.8 10*3/uL 0 - 0.8 10*3/uL [place] Monocytes/100 WBC (Bld) 9.6 % 2 - 10 % [place] Platelet mean volume (Bld) [Entitic vol] 7.6 fL 7.4 - 10.4 fL [place] Platelets (Bld) [#/Vol] 322 10*3/uL 140 - 440 10*3/uL [place] RBC (Bld) [#/Vol] 3.79 10*6/uL Low 3.8 - 5.2 10*6/uL [place] WBC (Bld) [#/Vol] 8.8 10*3/uL 3.6 - 10.7 10*3/uL [place] Test Performed by [facility], [address] [place], [place] [address] [place] Calcium, Ionizedon 0 Interpretation and review of laboratory results Abnormal [place] Ionized Ca 4.30 mg/dL 4.3 - 5.2 mg/dL [place] pH (Bld) 7.47 [pH] [place] Test Performed by [facility], [address] [place], [place] [id number] [place] [address] Hepatic Function Panelon Albumin [Mass/Vol] 3.6 g/dL 3.5 - 5 g/dL [place] ALP [Catalytic activity/Vol] 102 U/L 38 - 126 U/L [place] ALT [Catalytic activity/Vol] 69 U/L High 0 - 34 U/L [place] Comment on above: The ALT test is perf ormed by an updated assay method. Please note that the reference intervals have been changed and are now sex specific. AST [Catalytic activity/Vol] 41 U/L 15 - 46 U/L [place] Bilirubin Ql (U) 0.6 mg/dL 0.2 - 1.3 mg/dL [place] Bilirubin.direct [Mass/Vol] 0.0 mg/dL 0 - 0.3 mg/dL [place] Protein [Mass/Vol] 7.7 g/dL 6.3 - 8.2 g/dL [place] MAGNESIUMon 10-24-2019 Magnesium [Mass/Vol] 2.0 mg/dL 1.6 - 2 .3 [facility]-2019 Interpretation and review of laboratory results Abnormal [place] Test Performed by [facility], [address], [place], [place] [address] [facility] JAIDA Phosphoruson 10-24-2019 Phosphate [Mass/Vol] 4.5 mg/dL 2.5 - 4 .5 mg/dL [place] XR CHEST PORTABLEon 10-24-19 20 [place]ol[place], [facility] Incoming Radiology Results From [facility] - 10/24/2019 9:09 AM EDT Patient Name: CHARLIE NGUYEN ---Diagnostic Radiology--- Exam Date/Time 10/24/2019 08:53:24 EDT Exam CR Chest Portable Ordering Physician BENJAMIN SOSA JUDITH A. Accession Number [id number] CPT4 Codes 87236 () Reason For Exam respiratory failure Report PORTABLE CHEST CLINICAL INDICATION: Respiratory failure. COMPARISON: 10/23/2019. TECHNIQUE: A single frontal view of thorax was obtained and reviewed. IMPRESSION: 1. Lines/ tubes/ devices: Right-sided PICC line tip overlies proximal SVC, unchanged in position. 2. Lungs and Pleura: Coarse bilateral interstitial markings are redemonstrated. No pulmonary congestion, consolidation, pneumothorax or pleural effusion is evident. 3. Heart and mediastinum: Normal cardiomediastinal margin. 4. Bones: Thoracic degenerative spondylosis. Right AC joint arthrosis. Remote fracture deformity of right upper ribs. Report Dictated on --- Final --- Dictating Physician: LULI PINA DO, I Signed Date and Time: 10/24/2019 9:07 am Signed by: LULI PINA DO, I Transcribed Date and Time: 10/24/2019 9:08 [place] Patient Name: CHARLIE NGUYEN ---Diagnostic Radiology--- Exam Date/Time 10/24/2019 08:53:24 EDT Exam CR Chest Portable Ordering Physician BENJAMIN SOSA JUDITH A. Accession Number [id number] CPT4 Codes 16056 () Reason For Exam respiratory failure Report PORTABLE CHEST CLINICAL INDICATION: Respiratory failure. COMPARISON: 10/23/2019. TECHNIQUE: A single frontal view of thorax was obtained and reviewed. IMPRESSION: 1. Lines/ tubes/ devices: Right-sided PICC line tip overlies proximal SVC, unchanged in position. 2. Lungs and Pleura: Coarse bilateral interstitial markings are redemonstrated. No pulmonary congestion, consolidation, pneumothorax or pleural effusion is evident. 3. Heart and mediastinum: Normal cardiomediastinal margin. 4. Bones: Thoracic degenerative spondylosis. Right AC joint arthrosis. Remote fracture deformity of right upper ribs. Report Dictated on --- Final --- Dictating Physician: LULI PINA DO, I Signed Date and Time: 10/24/2019 9:07 am Signed by: LULI PINA DO, I Transcribed Date and Time: 10/24/2019 9:08 [place] Basic Metabolic Panelon 05- Anion gap [Moles/Vol] 12 mmol/L [place] Calcium [Mass/Vol] 8.5 mg/dL 8.4 - 10. 4 mg/dL [place] Chloride [Moles/Vol] 97 mmol/L Low 98 - 10 7 mmol/L [place] CO2 [Moles/Vol] 35 mmol/L High 22 - 30 mmol/L [place] Creatinine [Mass/Vol] 0.53 mg/dL 0.52 - 1.25 mg/dL [place] EGFR IF NonAfrican [place] >90.0 >60 mL/min [place] Comment on above: KDIGO guidelines pro vide the following GFR categories: Stage GFR(ml/min/1.73 m2) Terms G1 >=90 Normal or high G2 60-89 Mildly decreased* G3a 45-59 Mildly to moderately decreased G3b 30-44 Moderately to severely decreased G4 15-29 Severely decreased G5 <15 Kidney failure *Relative to young adult level. In the absence of evidence of kidney damage, neither GFR category G1 nor G2 fulfill the criteria for CKD. The CKD-EPI equation is validated in individuals 18 years of age and older. Currently the best equation for estimating glomerular filtration rate (GFR) from serum creatinine in children is the Bedside Rosales equation. It is less accurate in patients with extremes of muscle mass, restriction of dietary protein, ingestion of creatine, extra-renal metabolism of creatinine, or treatment with medications that affect renal tubular creatinine secretion. GFR/1.73 sq M predicted among blacks MDRD (S/P/Bld) [Vol rate/Area] mL/min/{1.73_m2} >60 mL/min [place] Glucose [Mass/Vol] 104 mg/dL High 70 - 100 mg/dL [place] Potassium [Moles/Vol] 3.5 mmol/L 3.5 - 5.1 mmol/L [place] Sodium [Moles/Vol] 144 mmol/L 135 - 145 mmol/L [place] Urea nitrogen [Mass/Vol] 25 mg/dL High 7 - 20 mg/d L [place] CBC Auto Differentialon 05-2 Absolute Baso # 0.1 10*3/uL 0 - 0.2 10*3/uL [place] Absolute Neut # 7.0 10*3/uL 1.8 - 7 10*3/uL [place] Basophils/100 WBC (Bld) 1.0 % 0 - 2 % [place] Eosinophils (Bld) [#/Vol] 0.3 10*3/uL 0 - 0.5 10*3/uL [place] Eosinophils/100 WBC (Bld) 3.2 % 1 - 6 % [place] Erythrocyte distribution width (RBC) [Ratio] 15.1 % High 11.5 - 14.5 % [place] Granulocytes/100 WBC (Bld) 71.8 % 40 - 80 % [place] Hematocrit (Bld) [Volume fraction] 35.4 % 35 - 47 % [place] Hemoglobin (Bld) [Mass/Vol] 11.6 g/dL Low 11.7 - 16 g/dL [place] Interpretation and review of laboratory results Abnormal [place] Lymphocytes (Bld) [#/Vol] 1.5 10*3/uL 1 - 4.3 10*3/uL [place] Lymphocytes/100 WBC (Bld) 15.7 % Low 20 - 40 % [place] MCH (RBC) [Entitic mass] 31.3 pg 26 - 34 pg [place] MCHC (RBC) [Mass/Vol] 32.8 % 32 - 36 % [place] MCV (RBC) [Entitic vol] 95.6 fL 79 - 98 fL [place], [place] Monocytes (Bld) [#/Vol] 0.8 10*3/uL 0 - 0.8 10*3/uL [place] Monocytes/100 WBC (Bld) 8.3 % 2 - 10 % [place] Platelet mean volume (Bld) [Entitic vol] 7.6 fL 7.4 - 10.4 fL [place] Platelets (Bld) [#/Vol] 343 10*3/uL 140 - 440 10*3/uL [place] RBC (Bld) [#/Vol] 3.71 10*6/uL Low 3.8 - 5.2 10*6/uL [place] WBC (Bld) [#/Vol] 9.8 10*3/uL 3.6 - 10.7 10*3/uL [place] Test Performed by [facility], [address] [place], [place] [address] [place] Calcium, Ionizedon 0 Ionized Ca 4.40 mg/dL 4.3 - 5.2 mg/dL [place] pH (Bld) 7.42 [pH] [place] Test Performed by [facility], [address] [place], [place] [address] [place] Hepatic Function Panelon Albumin [Mass/Vol] 3.4 g/dL Low 3.5 - 5 g/dL [place] ALP [Catalytic activity/Vol] 106 U/L 38 - 126 U/L [place] ALT [Catalytic activity/Vol] 84 U/L High 0 - 34 U/L [place] Comment on above: The ALT test is perf ormed by an updated assay method. Please note that the reference intervals have been changed and are now sex specific. AST [Catalytic activity/Vol] 44 U/L 15 - 46 U/L [place] Bilirubin Ql (U) 0.6 mg/dL 0.2 - 1.3 mg/dL [place] Bilirubin.direct [Mass/Vol] 0.0 mg/dL 0 - 0.3 mg/dL [place] Protein [Mass/Vol] 7.6 g/dL 6.3 - 8.2 g/dL [place] MAGNESIUMon 10-23-2019 Magnesium [Mass/Vol] 1.4 mg/dL Low 1.6 - 2 .3 mg/dL [place] Otheron 10-23-2019 Interpretation and review of laboratory results Abnormal [place] Test Performed by [facility], [address] [place], [place] [address] [place] POCT Arterialon 10-23-2019 Base Excess, Arterial 8.0 mmol/L High -3 - 3 mmol/L [place] HCO3, Arterial 32.9 mmol/L High 21 - 25 mmol/L [place] Interpretation and review of laboratory results Abnormal [place] Oxygen saturation in Blood 96.8 % 95 - 100 % [place] pCO2, Arterial 45.2 mm[Hg] High 35 - 45 mm[Hg] [place] pH, Arterial 7.470 [place] pO2, Arterial 83.8 mm[Hg] 80 - 100 mm[Hg] [place] Sodium [Moles/Vol] 40 mmol/L [place] Comment on above: Performed by [facility] ID : [id number] [place], [place] TCO2, Arterial 34.3 mmol/L High 23 - 27 mmol/L [place] Test Performed by [facility], [address] [place], [place] [address] [place] Base Excess, Arterial cnc Critically abnormal -3 - 3 mmol/L [place] HCO3, Arterial cnc Critically abnormal 21 - 25 mmol/L [place] Interpretation and review of laboratory results Abnormal [place] Oxygen saturation in Blood cnc Critically abnormal 95 - 100 % [place] pCO2, Arterial 44.8 mm[Hg] 35 - 45 mm[Hg] [place] pH, Arterial Failed iQC Critically abnormal [place] pO2, Arterial 80.1 mm[Hg] 80 - 100 mm[Hg] [place] Sodium [Moles/Vol] 40 mmol/L [place] Comment on above: Performed by [facility] ID : [id number] [place], [place] TCO2, Arterial cnc Critically abnormal 23 - 27 mmol/L [place] Test Performed by [facility], [address] [place] [address] [place] Phosphoruson 10-23-2019 Phosphate [Mass/Vol] 4.3 mg/dL 2.5 - 4 .5 mg/dL [place] XR CHEST PORTABLEon 10-23-19 Patient Name: CHARLIE NGUYEN ---Diagnostic Radiology--- Exam Date/Time 10/23/2019 06:36:40 EDT Exam CR Chest Portable Ordering Physician BENJAMIN SOSA JUDITH A. Accession Number [id number] CPT4 Codes 03208 () Reason For Exam respiratory failure Report PORTABLE CHEST CLINICAL INDICATION: Respiratory failure. COMPARISON: Yesterday TECHNIQUE: A single frontal view of thorax was obtained and reviewed. IMPRESSION: 1. Lines/ tubes/ devices: None. 2. Lungs and Pleura: Coarse bilateral interstitial lung markings No infiltrate or mass. No pneumothorax or pleural effusion. 3. Heart and mediastinum: Normal cardiomediastinal margin. 4. Bones: Thoracic degenerative spondylosis. Right AC joint arthrosis. Report Dictated on --- Final --- Dictating Physician: LULI PINA DO, I Signed Date and Time: 10/23/2019 7:42 am Signed by: LULI PINA DO, I Transcribed Date and Time: 10/23/2019 7:43 [place], [facility] Incoming Radiology Results From [facility] - 10/23/2019 7:44 AM EDT Patient Name: CHARLIE NGUYEN ---Diagnostic Radiology--- Exam Date/Time 10/23/2019 06:36:40 EDT Exam CR Chest Portable Ordering Physician BENJAMIN SOSA JUDITH A. Accession Number [id number] CPT4 Codes 79537 () Reason For Exam respiratory failure Report PORTABLE CHEST CLINICAL INDICATION: Respiratory failure. COMPARISON: Yesterday TECHNIQUE: A single frontal view of thorax was obtained and reviewed. IMPRESSION: 1. Lines/ tubes/ devices: None. 2. Lungs and Pleura: Coarse bilateral interstitial lung markings No infiltrate or mass. No pneumothorax or pleural effusion. 3. Heart and mediastinum: Normal cardiomediastinal margin. 4. Bones: Thoracic degenerative spondylosis. Right AC joint arthrosis. Report Dictated on --- Final --- Dictating Physician: LULI PINA DO, I Signed Date and Time: 10/23/2019 7:42 am Signed by: LULI PINA DO, I Transcribed Date and Time: 10/23/2019 7:43 [place] Basic Metabolic Panelon 09-30 Anion gap [Moles/Vol] 8 mmol/L [place] Calcium [Mass/Vol] 8.2 mg/dL Low 8.4 - 10. 4 mg/dL [place] Chloride [Moles/Vol] 104 mmol/L 98 - 10 7 mmol/L [place] CO2 [Moles/Vol] 30 mmol/L 22 - 30 mmol/L [place] Creatinine [Mass/Vol] 0.39 mg/dL Low 0.52 - 1.25 mg/dL [place] EGFR IF NonAfrican [place] >90.0 >60 mL/min [place] Comment on above: KDIGO guidelines pro vide the following GFR categories: Stage GFR(ml/min/1.73 m2) Terms G1 >=90 Normal or high G2 60-89 Mildly decreased* G3a 45-59 Mildly to moderately decreased G3b 30-44 Moderately to severely decreased G4 15-29 Severely decreased G5 <15 Kidney failure *Relative to young adult level. In the absence of evidence of kidney damage, neither GFR category G1 nor G2 fulfill the criteria for CKD. The CKD-EPI equation is validated in individuals 18 years of age and older. Currently the best equation for estimating glomerular filtration rate (GFR) from serum creatinine in children is the Bedside Rosales equation. It is less accurate in patients with extremes of muscle mass, restriction of dietary protein, ingestion of creatine, extra-renal metabolism of creatinine, or treatment with medications that affect renal tubular creatinine secretion. GFR/1.73 sq M predicted among blacks MDRD (S/P/Bld) [Vol rate/Area] mL/min/{1.73_m2} >60 mL/min [place] Glucose [Mass/Vol] 96 mg/dL 70 - 100 mg/dL [place] Potassium [Moles/Vol] 3.2 mmol/L Low 3.5 - 5.1 mmol/L [place] Sodium [Moles/Vol] 142 mmol/L 135 - 145 mmol/L [place] Urea nitrogen [Mass/Vol] 15 mg/dL 7 - 20 mg/d L [place] CBC Auto Differentialon 05-2 Absolute Baso # 0.1 10*3/uL 0 - 0.2 10*3/uL [place] Absolute Neut # 6.9 10*3/uL 1.8 - 7 10*3/uL [place] Basophils/100 WBC (Bld) 0.7 % 0 - 2 % [place] Eosinophils (Bld) [#/Vol] 0.3 10*3/uL 0 - 0.5 10*3/uL [place] Eosinophils/100 WBC (Bld) 3.7 % 1 - 6 % [place] Erythrocyte distribution width (RBC) [Ratio] 15.2 % High 11.5 - 14.5 % [place] Granulocytes/100 WBC (Bld) 74.2 % 40 - 80 % [place] Hematocrit (Bld) [Volume fraction] 33.4 % Low 35 - 47 % [place] Hemoglobin (Bld) [Mass/Vol] 10.9 g/dL Low 11.7 - 16 g/dL [place] Interpretation and review of laboratory results Abnormal [place] Lymphocytes (Bld) [#/Vol] 1.4 10*3/uL 1 - 4.3 10*3/uL [place] Lymphocytes/100 WBC (Bld) 14.9 % Low 20 - 40 % [place] MCH (RBC) [Entitic mass] 31.7 pg 26 - 34 pg [place] MCHC (RBC) [Mass/Vol] 32.7 % 32 - 36 % [place] MCV (RBC) [Entitic vol] 96.8 fL 79 - 98 fL [place], [place] Monocytes (Bld) [#/Vol] 0.6 10*3/uL 0 - 0.8 10*3/uL [place] Monocytes/100 WBC (Bld) 6.5 % 2 - 10 % [place] Platelet mean volume (Bld) [Entitic vol] 7.5 fL 7.4 - 10.4 fL [place] Platelets (Bld) [#/Vol] 341 10*3/uL 140 - 440 10*3/uL [place] RBC (Bld) [#/Vol] 3.44 10*6/uL Low 3.8 - 5.2 10*6/uL [place] WBC (Bld) [#/Vol] 9.2 10*3/uL 3.6 - 10.7 10*3/uL [place] Test Performed by [facility], [address] [place], [place] [address] [place] Calcium, Ionizedon 0 Ionized Ca 4.40 mg/dL 4.3 - 5.2 mg/dL [place] pH (Bld) 7.36 [pH] [place] Test Performed by [facility], [address], [place], [place] [address] [place] Hepatic Function Panelon Albumin [Mass/Vol] 3.1 g/dL Low 3.5 - 5 g/dL [place] ALP [Catalytic activity/Vol] 97 U/L 38 - 126 U/L [place] ALT [Catalytic activity/Vol] 100 U/L High 0 - 34 U/L [place] Comment on above: The ALT test is perf ormed by an updated assay method. Please note that the reference intervals have been changed and are now sex specific. AST [Catalytic activity/Vol] 56 U/L High 15 - 46 U/L [place] Bilirubin Ql (U) 0.5 mg/dL 0.2 - 1.3 mg/dL [place] Bilirubin.direct [Mass/Vol] 0.0 mg/dL 0 - 0.3 mg/dL [place] Protein [Mass/Vol] 7.0 g/dL 6.3 - 8.2 g/dL [place] MAGNESIUMon 10-22-2019 Magnesium [Mass/Vol] 1.6 mg/dL 1.6 - 2 .3 mg/dL [place] Otheron 10-22-2019 Interpretation and review of laboratory results Abnormal [place] Test Performed by [facility], [address] [place], [place] [address] [place] POCT Arterialon 10-22-2019 Base Excess, Arterial 4.2 mmol/L High -3 - 3 mmol/L [place] HCO3, Arterial 29.9 mmol/L High 21 - 25 mmol/L [place] Interpretation and review of laboratory results Abnormal [place] Oxygen saturation in Blood 96.4 % 95 - 100 % [place] pCO2, Arterial 48.1 mm[Hg] High 35 - 45 mm[Hg] [place] pH, Arterial 7.401 [place] pO2, Arterial 86.4 mm[Hg] 80 - 100 mm[Hg] [place] TCO2, Arterial 31.3 mmol/L High 23 - 27 mmol/L [place] Comment on above: Performed by [employer] ID : [id number] [place], [place] Test Performed by [facility], [address], [place], [place] [address] [place] Phosphoruson 10-22-2019 Phosphate [Mass/Vol] 3.6 mg/dL 2.5 - 4 .5 mg/dL [place] XR CHEST PORTABLEon 10-22-19 20 [place], [facility] - 10/22/2019 6:46 AM EDT Patient Name: CHARLIE NGUYEN ---Diagnostic Radiology--- Exam Date/Time 10/22/2019 06:14:22 EDT Exam CR Chest Portable Ordering Physician BENJAMIN SOSA JUDITH A. Accession Number [id number] CPT4 Codes 43855 () Reason For Exam respiratory failure Report PORTABLE CHEST: INDICATION: Respiratory failure COMPARISON: 10/20/2019 Obtained at 0527 hours. A single portable AP radiograph of the chest was obtained. The heart is normal in size. The mediastinal silhouette is normal. Chronic interstitial changes are present. There are no effusions. There is no pleural thickening. Arthritic changes of the spine and shoulders are present. A PICC is present on the right with the tip of the catheter overlying the superior vena cava. IMPRESSION: Chronic interstitial changes. Report Dictated on Workstation: [id number] --- Final --- Dictating Physician: DO DICKEY ALFRED Signed Date and Time: 10/22/2019 6:45 am Signed by: DO DICKEY ALFRED Transcribed Date and Time: 10/22/2019 6:46 [place] Patient Name: CHARLIE NGUYEN ---Diagnostic Radiology--- Exam Date/Time 10/22/2019 06:14:22 EDT Exam CR Chest Portable Ordering Physician BENJAMIN SOSA JUDITH A. Accession Number [id number] CPT4 Codes 51170 () Reason For Exam respiratory failure Report PORTABLE CHEST: INDICATION: Respiratory failure COMPARISON: 10/20/2019 Obtained at 0527 hours. A single portable AP radiograph of the chest was obtained. The heart is normal in size. The mediastinal silhouette is normal. Chronic interstitial changes are present. There are no effusions. There is no pleural thickening. Arthritic changes of the spine and shoulders are present. A PICC is present on the right with the tip of the catheter overlying the superior vena cava. IMPRESSION: Chronic interstitial changes. Report Dictated on Workstation: [id number] --- Final --- Dictating Physician: DO DICKEY ALFRED Signed Date and Time: 10/22/2019 6:45 am Signed by: DO DICKEY ALFRED Transcribed Date and Time: 10/22/2019 6:46 [place] Basic Metabolic Panelon 09-30 Anion gap [Moles/Vol] 11 mmol/L [place] Calcium [Mass/Vol] 8.3 mg/dL Low 8.4 - 10. 4 mg/dL [place] Chloride [Moles/Vol] 107 mmol/L 98 - 10 7 mmol/L [place] CO2 [Moles/Vol] 25 mmol/L 22 - 30 mmol/L [place] Creatinine [Mass/Vol] 0.36 mg/dL Low 0.52 - 1.25 mg/dL [place] EGFR IF NonAfrican [place] >90.0 >60 mL/min [place] Comment on above: KDIGO guidelines pro vide the following GFR categories: Stage GFR(ml/min/1.73 m2) Terms G1 >=90 Normal or high G2 60-89 Mildly decreased* G3a 45-59 Mildly to moderately decreased G3b 30-44 Moderately to severely decreased G4 15-29 Severely decreased G5 <15 Kidney failure *Relative to young adult level. In the absence of evidence of kidney damage, neither GFR category G1 nor G2 fulfill the criteria for CKD. The CKD-EPI equation is validated in individuals 18 years of age and older. Currently the best equation for estimating glomerular filtration rate (GFR) from serum creatinine in children is the Bedside Rosales equation. It is less accurate in patients with extremes of muscle mass, restriction of dietary protein, ingestion of creatine, extra-renal metabolism of creatinine, or treatment with medications that affect renal tubular creatinine secretion. GFR/1.73 sq M predicted among blacks MDRD (S/P/Bld) [Vol rate/Area] mL/min/{1.73_m2} >60 mL/min [place] Glucose [Mass/Vol] 98 mg/dL 70 - 100 mg/dL [place] Potassium [Moles/Vol] 2.8 mmol/L Low 3.5 - 5.1 mmol/L [place] Sodium [Moles/Vol] 143 mmol/L 135 - 145 mmol/L [place] Urea nitrogen [Mass/Vol] 17 mg/dL 7 - 20 mg/d L [place] CBC Auto Differentialon 09-30 Absolute Baso # 0.1 10*3/uL 0 - 0.2 10*3/uL [place] Absolute Neut # 8.1 10*3/uL High 1.8 - 7 10*3/uL [place] Basophils/100 WBC (Bld) 0.8 % 0 - 2 % [place] Eosinophils (Bld) [#/Vol] 0.3 10*3/uL 0 - 0.5 10*3/uL [place] Eosinophils/100 WBC (Bld) 2.9 % 1 - 6 % [place] Erythrocyte distribution width (RBC) [Ratio] 15.2 % High 11.5 - 14.5 % [place] Granulocytes/100 WBC (Bld) 76.9 % 40 - 80 % [place] Hematocrit (Bld) [Volume fraction] 33.5 % Low 35 - 47 % [place] Hemoglobin (Bld) [Mass/Vol] 11.1 g/dL Low 11.7 - 16 g/dL [place] Interpretation and review of laboratory results Abnormal [place] Lymphocytes (Bld) [#/Vol] 1.3 10*3/uL 1 - 4.3 10*3/uL [place] Lymphocytes/100 WBC (Bld) 11.9 % Low 20 - 40 % [place] MCH (RBC) [Entitic mass] 32.0 pg 26 - 34 pg [place] MCHC (RBC) [Mass/Vol] 33.1 % 32 - 36 % [place] MCV (RBC) [Entitic vol] 96.5 fL 79 - 98 fL [place], [place] Monocytes (Bld) [#/Vol] 0.8 10*3/uL 0 - 0.8 10*3/uL [place] Monocytes/100 WBC (Bld) 7.5 % 2 - 10 % [place] Platelet mean volume (Bld) [Entitic vol] 7.8 fL 7.4 - 10.4 fL [place] Platelets (Bld) [#/Vol] 366 10*3/uL 140 - 440 10*3/uL [place] RBC (Bld) [#/Vol] 3.47 10*6/uL Low 3.8 - 5.2 10*6/uL [place] WBC (Bld) [#/Vol] 10.6 10*3/uL 3.6 - 10.7 10*3/uL [place] Test Performed by [facility], [address] [place], [place] [id number] [place] [address] Hepatic Function Panelon Albumin [Mass/Vol] 3.4 g/dL Low 3.5 - 5 g/dL [place] ALP [Catalytic activity/Vol] 107 U/L 38 - 126 U/L [place] ALT [Catalytic activity/Vol] 126 U/L High 0 - 34 U/L [place] Comment on above: The ALT test is perf ormed by an updated assay method. Please note that the reference intervals have been changed and are now sex specific. AST [Catalytic activity/Vol] 72 U/L High 15 - 46 U/L [place] Bilirubin Ql (U) 0.7 mg/dL 0.2 - 1.3 mg/dL [place] Bilirubin.direct [Mass/Vol] 0.0 mg/dL 0 - 0.3 mg/dL [place] Protein [Mass/Vol] 7.6 g/dL 6.3 - 8.2 g/dL [place] MRI BRAIN W WO CONTRASTon Patient Name: CHARLIE NGUYEN ---MRI--- Exam Date/Time 10/21/2019 11:17:35 EDT Exam MRI Brain w/ + w/o Contrast Ordering Physician MARIZATAMARA STEVE Accession Number [id number] CPT4 Codes 88922 () Reason For Exam new onset seizures Report CLINICAL INFORMATION: Unresponsive. Altered mental status. Seizure disorder. Acute metabolic encephalopathy. Drug overdose. History of multiple sclerosis. FLAIR, T2, T1, and diffusion weighted axial images, T1 coronal images, and T1 and FLAIR sagittal images of the brain are obtained prior to IV contrast. Subsequently, after the administration of 12 mL IV Gadavist, T1 axial and coronal images are repeated. The examination is compared to a previous study dated 01/10/2015. FINDINGS: The ventricles are within normal limits in respect to their size and configuration. There is no evidence of mass or mass-effect. There are no abnormal intra or extra-axial fluid collections. Patchy bright signal redemonstrated in the periventricular white matter of the medial/posterior right frontal lobe. There is again involvement in the adjacent corpus callosum. This is all unchanged. The diffusion weighted images are normal without evidence of an acute event. After IV contrast, there are no regions of abnormal enhancement. Mild inflammatory changes and an air-fluid level are noted in the right sphenoid sinus. Mild inflammatory changes are noted in the right mastoid air cells. IMPRESSION: 1. Right frontal lobe white matter lesions consistent with the patient's known multiple sclerosis. This finding is unchanged in the prior study. 2. No abnormal enhancement to suggest active demyelination. 3. Mild sinusitis. Mild inflammatory changes are noted in the right mastoid air cells. This is nonspecific but may indicate mastoiditis. Report Dictated on --- Final --- Dictating Physician: MD VAZQUEZ JEFFREY Signed Date and Time: 10/21/2019 2:07 pm Signed by: MD VAZQUEZ JEFFREY Transcribed Date and Time: 10/21/2019 2:08 [facility], [place] [facility], [facility] Incoming Radiology Results From [facility] - 10/21/2019 2:09 PM EDT Patient Name: CHARLIE NGUYEN ---MRI--- Exam Date/Time 10/21/2019 11:17:35 EDT Exam MRI Brain w/ + w/o Contrast Ordering Physician TAMARA GILL Accession Number [id number] CPT4 Codes 80522 () Reason For Exam new onset seizures Report CLINICAL INFORMATION: Unresponsive. Altered mental status. Seizure disorder. Acute metabolic encephalopathy. Drug overdose. History of multiple sclerosis. FLAIR, T2, T1, and diffusion weighted axial images, T1 coronal images, and T1 and FLAIR sagittal images of the brain are obtained prior to IV contrast. Subsequently, after the administration of 12 mL IV Gadavist, T1 axial and coronal images are repeated. The examination is compared to a previous study dated 01/10/2015. FINDINGS: The ventricles are within normal limits in respect to their size and configuration. There is no evidence of mass or mass-effect. There are no abnormal intra or extra-axial fluid collections. Patchy bright signal redemonstrated in the periventricular white matter of the medial/posterior right frontal lobe. There is again involvement in the adjacent corpus callosum. This is all unchanged. The diffusion weighted images are normal without evidence of an acute event. After IV contrast, there are no regions of abnormal enhancement. Mild inflammatory changes and an air-fluid level are noted in the right sphenoid sinus. Mild inflammatory changes are noted in the right mastoid air cells. IMPRESSION: 1. Right frontal lobe white matter lesions consistent with the patient's known multiple sclerosis. This finding is unchanged in the prior study. 2. No abnormal enhancement to suggest active demyelination. 3. Mild sinusitis. Mild inflammatory changes are noted in the right mastoid air cells. This is nonspecific but may indicate mastoiditis. Report Dictated on --- Final --- Dictating Physician: MD VAZQUEZ JEFFREY Signed Date and Time: 10/21/2019 2:07 pm Signed by: MD VAZQUEZ JEFFREY Transcribed Date and Time: 10/21/2019 2:08 [employer] Otheron 10-21-2019 Interpretation and review of laboratory results Abnormal [employer] Test Performed by [facility], [address] [place], [place], [place] [address] [employer] POCT Arterialon 10-21-2019 Base Excess, Arterial 2.8 mmol/L -3 - 3 mmol/L [facility] [place], [place] HCO3, Arterial 27.4 mmol/L High 21 - 25 mmol/L [place] Interpretation and review of laboratory results Abnormal [place] Oxygen saturation in Blood 93.7 % Low 95 - 100 % [place] pCO2, Arterial 41.0 mm[Hg] 35 - 45 mm[Hg] [place] pH, Arterial 7.433 [place] pO2, Arterial 67.7 mm[Hg] Low 80 - 100 mm[Hg] [place] Sodium [Moles/Vol] 40 mmol/L [place] Comment on above: Performed by CLIA ID : [id number] [place], [place] TCO2, Arterial 28.7 mmol/L High 23 - 27 mmol/L [place] Test Performed by [facility], [facility] [address] [place], [place] [address] [place] XA SPECIAL ANGIOGRAPHY PROCE [facility] 10-21-2019 [place], [facility] Incoming Radiology Results From [facility] 10/21/2019 3:26 PM EDT Patient Name: CHARLIE NGUYEN ---Special Procedures--- Exam Date/Time 10/21/2019 15:06:31 EDT Exam XA Special Angiography Procedure Ordering Physician DES ROMERO Accession Number [id number] Reason For Exam PICC limited access Report CLINICAL HISTORY: Venous access needed. Procedures: Right-sided PICC placement. Physician: Dr. Alonzo MEDICATIONS: Local lidocaine. EBL: Minimal. Contrast: None. Specimen sent: None COMPLICATIONS: None Fluoroscopy time: 0.2 minutes Fluoroscopic saved images: Two Procedural details: All of the risk, benefits, and alternative treatments were explained to the patient and informed consent was obtained and documented. The patient was brought into the interventional radiology suite and placed in a supine position. The patient right upper arm was interrogated with ultrasound and the basilic vein was found to be widely patent. A permanent ultrasound image was stored to the patient record. The right arm was prepped and draped in the usual sterile fashion. Maximal sterile barrier technique was utilized. All elements of maximal sterile barrier technique were used including a hat, mask, sterile gown, sterile gloves, and a sterile drape. Appropriate hand hygiene using 2 percent chlorhexidine for cutaneous antisepsis was utilized. A sterile ultrasound probe cover and sterile ultrasound gel was utilized. The overlying subcutaneous tissues were anesthetized using 2 percent lidocaine. Under direct ultrasound visualization, the right basilic vein was accessed using a 21-gauge micropuncture needle. A 0.018 wire was advanced through the needle into the central circulation. The needle was then replaced with a peel- away sheath. The PICC was then advanced through the peel-away sheath. Postplacement fluoroscopy showed the catheter tip at the cavoatrial junction. The PICC was then secured to the patient's arm. Findings: Tip of catheter terminates at the caval atrial junction. IMPRESSION: Successful uncomplicated placement of a right-sided PICC. Report Dictated on --- Final --- Dictating Physician: MD ALONZO KEVIN Signed Date and Time: 10/21/2019 3:25 pm Signed by: MD ALONZO KEVIN Transcribed Date and Time: 10/21/2019 3:26 [place] Patient Name: CHARLIE NGUYEN ---Special Procedures--- Exam Date/Time 10/21/2019 15:06:31 EDT Exam XA Special Angiography Procedure Ordering Physician DES ROMERO Accession Number [id number] Reason For Exam PICC limited access Report CLINICAL HISTORY: Venous access needed. Procedures: Right-sided PICC placement. Physician: Dr. Alonzo MEDICATIONS: Local lidocaine. EBL: Minimal. Contrast: None. Specimen sent: None COMPLICATIONS: None Fluoroscopy time: 0.2 minutes Fluoroscopic saved images: Two Procedural details: All of the risk, benefits, and alternative treatments were explained to the patient and informed consent was obtained and documented. The patient was brought into the interventional radiology suite and placed in a supine position. The patient right upper arm was interrogated with ultrasound and the basilic vein was found to be widely patent. A permanent ultrasound image was stored to the patient record. The right arm was prepped and draped in the usual sterile fashion. Maximal sterile barrier technique was utilized. All elements of maximal sterile barrier technique were used including a hat, mask, sterile gown, sterile gloves, and a sterile drape. Appropriate hand hygiene using 2 percent chlorhexidine for cutaneous antisepsis was utilized. A sterile ultrasound probe cover and sterile ultrasound gel was utilized. The overlying subcutaneous tissues were anesthetized using 2 percent lidocaine. Under direct ultrasound visualization, the right basilic vein was accessed using a 21-gauge micropuncture needle. A 0.018 wire was advanced through the needle into the central circulation. The needle was then replaced with a peel- away sheath. The PICC was then advanced through the peel-away sheath. Postplacement fluoroscopy showed the catheter tip at the cavoatrial junction. The PICC was then secured to the patient's arm. Findings: Tip of catheter terminates at the caval atrial junction. IMPRESSION: Successful uncomplicated placement of a right-sided PICC. Report Dictated on --- Final --- Dictating Physician: MD ALONZO KEVIN Signed Date and Time: 10/21/2019 3:25 pm Signed by: MD ALONZO KEVIN Transcribed Date and Time: 10/21/2019 3:26 [place] AMMONIAon 10-20-2019 Ammonia (P) [Mass/Vol] ug/dL 9 - 3 0 umol/L [place] Test Performed by [facility], [address] [place], [place] [id number] [place] [address] CBC Auto Differentialon 09-30 Absolute Baso # 0.1 10*3/uL 0 - 0.2 10*3/uL [place] Absolute Neut # 10.2 10*3/uL High 1.8 - 7 10*3/uL [place] Basophils/100 WBC (Bld) 0.6 % 0 - 2 % [place], [place] Eosinophils (Bld) [#/Vol] 0.1 10*3/uL 0 - 0.5 10*3/uL [place] Eosinophils/100 WBC (Bld) 1.1 % 1 - 6 % [place] Erythrocyte distribution width (RBC) [Ratio] 15.2 % High 11.5 - 14.5 % [place] Granulocytes/100 WBC (Bld) 85.0 % High 40 - 80 % [place] Hematocrit (Bld) [Volume fraction] 35.9 % 35 - 47 % [place] Hemoglobin (Bld) [Mass/Vol] 11.6 g/dL Low 11.7 - 16 g/dL [place] Interpretation and review of laboratory results Abnormal [place] Lymphocytes (Bld) [#/Vol] 1.0 10*3/uL 1 - 4.3 10*3/uL [place] Lymphocytes/100 WBC (Bld) 7.9 % Low 20 - 40 % [place] MCH (RBC) [Entitic mass] 30.8 pg 26 - 34 pg [place] MCHC (RBC) [Mass/Vol] 32.2 % 32 - 36 % [place] MCV (RBC) [Entitic vol] 95.8 fL 79 - 98 fL [place], [place] Monocytes (Bld) [#/Vol] 0.7 10*3/uL 0 - 0.8 10*3/uL [place] Monocytes/100 WBC (Bld) 5.4 % 2 - 10 % [place] Platelet mean volume (Bld) [Entitic vol] 7.7 fL 7.4 - 10.4 fL [place] Platelets (Bld) [#/Vol] 411 10*3/uL 140 - 440 10*3/uL [place] RBC (Bld) [#/Vol] 3.75 10*6/uL Low 3.8 - 5.2 10*6/uL [place] WBC (Bld) [#/Vol] 12.0 10*3/uL High 3.6 - 10.7 10*3/uL [place] Test [facility] by [facility], [address] [place], [place], [place] [address] [place] COVID-19on 10-20-2019 SARS-CoV-2 Not Detected Expected Result: Not Detected _ Real-time, RT-PCR performed on the [employer] System by the [facility]. Negative results do not preclude SARS-CoV-2 infection and should not be used as the sole basis for treatment or other patient management decisions. This assay was developed by [employer] and distributed under an Emergency Use Authorization (EUA) granted by the FDA for the qualitative detection of SARS-CoV-2 nucleic acid. [place] Test Performed by [facility] [address] Specimen Source Comment:[facility] l Swab [facility] Contraston Patient Name: CHARLIE NGUYEN ---CT--- Exam Date/Time 10/20/2019 16:55:55 EDT Exam CTA Chest w/ + w/o Contrast Ordering Physician DES ROMERO Accession Number [id number] CPT4 Codes 90692 (), Q9967 (CT ISOVUE 370MG/[id number]& ML&1) Reason For Exam Recurrent hypoxia Report Reasons for examination: Recurrent hypoxia, drug overdose. CT scan of the chest were performed with bolus contrast and high resolution scans for CT pulmonary angiographic study, with images post-processed by myself on [employer] workstation, with 3D - volume rendered CT and MPR angiographic images reconstructed. Comparison study 10/05/2019 The heart size is normal, and there are no pericardial or pleural effusions. There are no congestive changes in the pulmonary vasculature. The thoracic aorta is unremarkable. CT pulmonary angiographic examination is a fair quality study due to respiratory motion large patient size, which demonstrates no evidence of acute pulmonary embolism. The right side of the heart, pulmonary outflow tract, right and left main, lobar, and larger segmental pulmonary arteries all appear clear. Note that the technique is limited for detection of small, subsegmental, peripheral emboli, but none are seen. IMPRESSION: 1.Negative CT scan of the chest for evidence of acute pulmonary embolism (limited quality study due to respiratory motion and obesity). Unchanged since last exam 15 days ago. . 2. Infiltrates right lower lobe decreasing since a CT two weeks ago, infiltrates right middle lobe appearing since last CT Report Dictated on Workstation: [id number] --- Final --- Dictating Physician: MD العراقي WILLIAM Signed Date and Time: 10/20/2019 6:02 pm Signed by: MD العراقي WILLIAM Transcribed Date and Time: 10/20/2019 6:04 [place] [facility], [facility] Incoming Radiology Results From [facility] - 10/20/2019 6:04 PM EDT Patient Name: CHARLIE NGUYEN ---CT--- Exam Date/Time 10/20/2019 16:55:55 EDT Exam CTA Chest w/ + w/o Contrast Ordering Physician DES ROMERO Accession Number [id number] CPT4 Codes 91703 (), Q9967 (CT ISOVUE 370MG/[id number]& ML&1) Reason For Exam Recurrent hypoxia Report Reasons for examination: Recurrent hypoxia, drug overdose. CT scan of the chest were performed with bolus contrast and high resolution scans for CT pulmonary angiographic study, with images post-processed by myself on [employer] workstation, with 3D - volume rendered CT and MPR angiographic images reconstructed. Comparison study 10/05/2019 The heart size is normal, and there are no pericardial or pleural effusions. There are no congestive changes in the pulmonary vasculature. The thoracic aorta is unremarkable. CT pulmonary angiographic examination is a fair quality study due to respiratory motion large patient size, which demonstrates no evidence of acute pulmonary embolism. The right side of the heart, pulmonary outflow tract, right and left main, lobar, and larger segmental pulmonary arteries all appear clear. Note that the technique is limited for detection of small, subsegmental, peripheral emboli, but none are seen. IMPRESSION: 1.Negative CT scan of the chest for evidence of acute pulmonary embolism (limited quality study due to respiratory motion and obesity). Unchanged since last exam 15 days ago. . 2. Infiltrates right lower lobe decreasing since a CT two weeks ago, infiltrates right middle lobe appearing since last CT Report Dictated on Workstation: [id number] --- Final --- Dictating Physician: MD العراقي WILLIAM Signed Date and Time: 10/20/2019 6:02 pm Signed by: MD العراقي WILLIAM Transcribed Date and Time: 10/20/2019 6:04 [place] Comprehensive Metabolic Pane rafiq 10-20-2019 Albumin [Mass/Vol] 3.4 g/dL Low 3.5 - 5 g/dL [place] ALP [Catalytic activity/Vol] 122 U/L 38 - 126 U/L [place] ALT [Catalytic activity/Vol] 134 U/L High 0 - 34 U/L [place] Comment on above: The ALT test is perf ormed by an updated assay method. Please note that the reference intervals have been changed and are now sex specific. Anion gap [Moles/Vol] 11 mmol/L [place], [place] AST [Catalytic activity/Vol] 79 U/L High 15 - 46 U/L [place] Bilirubin Ql (U) 0.5 mg/dL 0.2 - 1.3 mg/dL [place] Calcium [Mass/Vol] 8.4 mg/dL 8.4 - 10. 4 mg/dL [place] Chloride [Moles/Vol] 106 mmol/L 98 - 10 7 mmol/L [place] CO2 [Moles/Vol] 26 mmol/L 22 - 30 mmol/L [place] Creatinine [Mass/Vol] 0.45 mg/dL Low 0.52 - 1.25 mg/dL [place] EGFR IF NonAfrican [place] >90.0 >60 mL/min [place] Comment on above: KDIGO guidelines pro vide the following GFR categories: Stage GFR(ml/min/1.73 m2) Terms G1 >=90 Normal or high G2 60-89 Mildly decreased* G3a 45-59 Mildly to moderately decreased G3b 30-44 Moderately to severely decreased G4 15-29 Severely decreased G5 <15 Kidney failure *Relative to young adult level. In the absence of evidence of kidney damage, neither GFR category G1 nor G2 fulfill the criteria for CKD. The CKD-EPI equation is validated in individuals 18 years of age and older. Currently the best equation for estimating glomerular filtration rate (GFR) from serum creatinine in children is the Bedside Rosales equation. It is less accurate in patients with extremes of muscle mass, restriction of dietary protein, ingestion of creatine, extra-renal metabolism of creatinine, or treatment with medications that affect renal tubular creatinine secretion. GFR/1.73 sq M predicted among blacks MDRD (S/P/Bld) [Vol rate/Area] mL/min/{1.73_m2} >60 mL/min [place] Glucose [Mass/Vol] 134 mg/dL High 70 - 100 mg/dL [place] Interpretation and review of laboratory results Abnormal [place] Potassium [Moles/Vol] 3.0 mmol/L Low 3.5 - 5.1 mmol/L [place] Protein [Mass/Vol] 7.5 g/dL 6.3 - 8.2 g/dL [place] Sodium [Moles/Vol] 143 mmol/L 135 - 145 mmol/L [place] Urea nitrogen [Mass/Vol] 21 mg/dL High 7 - 20 mg/d L [place] Test Performed by [facility], [address] [place], [place] [id number] [place] [address] EEG REPORTon 10-20-2019 Torin Salazar MD - 10/20/2019 7:52 PM EDT PATIENT: CHARLIE NGUYEN DATE OF SERVICE: 10/20/2019 ORDER NUMBER: DATE OF : 1955 AGE: 64 ADMITTING PHYSICIAN: Des Romero MD ATTENDING PHYSICIAN: Rajendra Kim MD DICTATING PHYSICIAN: Lesley Salazar MD EEG REFERRING PHYSICIAN: Max Bob D.O. EEG TEST #: [id number] HANDEDNESS: Right. EEG TEST TYPE: INPATIENT 22-MINUTE EEG/VIDEO RECORDING (2:24 P.M. - 2:48 P.M.) SURGICAL NURSE PRACTITIONER: TIFF EEG CLINICAL INDICATION: Seizure-like activity. NEUROLOGICAL HISTORY/DIAGNOSIS: A 64-year-old woman with seizure-like activity, drug overdose, restlessness and confusion. MEDICAL HISTORY: Migraine headaches and metabolic encephalopathy. CURRENT PERTINENT MEDICATIONS: Haldol, Lopressor, and Protonix. MENTAL STATUS PRESENTATION: Awake, verbal. The patient is restless, refusing to allow for the EEG. Not allowing the medical technician assistant to properly work for the electrodes and the electrode wires. eeg INTERPRETATION: EEG background activity consists of diffuse bilateral beta rhythm 15-16 Hz, >5 uV. This rhythm is seen diffusely and bilaterally. There is no AP gradient with no posterior rhythm dominance. Throughout this EEG recording, there is significant muscle artifact associated with restlessness, movement, talking, and interference with EEG electrode/wires. Eye opening/eye closure produces bilateral frontotemporal attenuation of the amplitude of the background EEG activity. Hyperventilation was not performed due to COVID pandemic. Intermittent photic stimulation increases this patient's restlessness, but does not elicit an occipital photic driving response. Sleep stages identified: None. Artifacts: Diffuse muscle artifacts due to the patient's lack of cooperation. EKG: Normal sinus rhythm. eeg-NEUROPHYSIOLOGICA L IMPRESSION: There is insufficient artifact-free awake/sleep EEG recording to meet the minimum standards required for an electrographic diagnosis. If epilepsy is a clinical concern, a repeat EEG, when the patient is more cooperative, may be helpful if clinically indicated. Callierilizbeth Job ID: [id number] DOD:10/20/2019 06:32 P SLM/doreenk DOT:10/20/2019 07:52 P Job Number: [id number] Document Number: [id number] ###### cc: Rajendra Kim MD [facility] [address] [place] [id number] Des Romero MD [address] [place] [address] [facility], [place] POCT Arterialon 10-20-2019 Base Excess, Arterial 1.5 mmol/L -3 - 3 mmol/L [facility], [place] HCO3, Arterial 27.3 mmol/L High 21 - 25 mmol/L [facility], [place] Interpretation and review of laboratory results Abnormal [facility], [place] Oxygen saturation in Blood 99.2 % 95 - 100 % [facility], [place] pCO2, Arterial 46.3 mm[Hg] High 35 - 45 mm[Hg] [facility] [place], [place] pH, Arterial 7.377 [facility], [place] pO2, Arterial 149.2 mm[Hg] High 80 - 100 mm[Hg] [facility], [place] Sodium [Moles/Vol] 100 mmol/L [facility], [place] Comment on above: Performed by CLIA ID : [id number] [place], [place] TCO2, Arterial 28.7 mmol/L High 23 - 27 mmol/L [facility], [place] Test Performed by [address] [place], [place] [id number] [place] [address] Base Excess, Arterial 0.3 mmol/L -3 - 3 mmol/L [place] HCO3, Arterial 25.4 mmol/L High 21 - 25 mmol/L [place] Interpretation and review of laboratory results Abnormal [place] Oxygen saturation in Blood 98.1 % 95 - 100 % [place] pCO2, Arterial 42.0 mm[Hg] 35 - 45 mm[Hg] [place] pH, Arterial 7.390 [place] pO2, Arterial 107.0 mm[Hg] High 80 - 100 mm[Hg] [place] Sodium [Moles/Vol] 15 mmol/L [place] Comment on above: Performed by CLIA ID : [id number] [place], [place] TCO2, Arterial 26.7 mmol/L 23 - 27 mmol/L [place] Test Performed by [facility], [address] [place], [place] [address] [place] POCT Glucoseon 10-20-2019 Glucose [Mass/Vol] 130 mg/dL High 70 - 100 mg/dL [place] Comment on above: Test performed by gl ucose meter. Results may be 10%-15% lower than serum/plasma values. (CLIA ID [id number]) Interpretation and review of laboratory results Abnormal [place] Test Performed by [facility], [address] [place], [place] [address] [place] Procalcitoninon 10-20-2019 Procalcitonin <0.10 <0.10 ng/mL [place] Sodium [Moles/Vol] See Below [place] Comment on above: PCT <0.50 = Low risk of severe sepsis and/or septic shock. PCT >2.00 = High risk of severe sepsis and/or septic shock. Test Performed by [facility], [address] [place] [address] [place] Troponinon 10-20-2019 Troponin I.cardiac [Mass/Vol] ng/mL 0 - 0.034 ng/mL [place] Comment on above: . Test Performed by [facility] [employer] [facility], [address], [place], [place] [address] [place] XR CHEST PORTABLEon 10-20-19 [place], [facility] Incoming Radiology Results From [facility] - 10/20/2019 2:48 PM EDT Patient Name: CHARLIE NGUYEN ---Diagnostic Radiology--- Exam Date/Time 10/20/2019 12:59:00 EDT Exam CR Chest Portable Ordering Physician DES ROMERO Accession Number [id number] CPT4 Codes 33107 () Reason For Exam SOB Report PORTABLE CHEST Clinical indication: SOB Comparison: 10/18/2019. The cardiac silhouette is not enlarged. Lung volumes are shallow. There is atelectasis at right base. Pulmonary vasculature is mildly congested. No pleural effusions are identified. IMPRESSION: Mild pulmonary vascular congestion and mild right basilar atelectasis Report Dictated on --- Final --- Dictating Physician: MD KELLY DIANE Signed Date and Time: 10/20/2019 2:46 pm Signed by: MD KELLY DIANE Transcribed Date and Time: 10/20/2019 2:47 [place] Patient Name: CHARLIE NGUYEN ---Diagnostic Radiology--- Exam Date/Time 10/20/2019 12:59:00 EDT Exam CR Chest Portable Ordering Physician DES ROMERO Accession Number [id number] CPT4 Codes 03519 () Reason For Exam SOB Report PORTABLE CHEST Clinical indication: SOB Comparison: 10/18/2019. The cardiac silhouette is not enlarged. Lung volumes are shallow. There is atelectasis at right base. Pulmonary vasculature is mildly congested. No pleural effusions are identified. IMPRESSION: Mild pulmonary vascular congestion and mild right basilar atelectasis Report Dictated on --- Final --- Dictating Physician: MD KELLY DIANE Signed Date and Time: 10/20/2019 2:46 pm Signed by: MD ROBIN, KATTY Transcribed Date and Time: 10/20/2019 2:47 [place] Basic Metabolic Panelon 09-30 Anion gap [Moles/Vol] 10 mmol/L [place] Calcium [Mass/Vol] 8.0 mg/dL Low 8.4 - 10. 4 mg/dL [place] Chloride [Moles/Vol] 108 mmol/L High 98 - 10 7 mmol/L [place] CO2 [Moles/Vol] 24 mmol/L 22 - 30 mmol/L [place] Creatinine [Mass/Vol] 0.37 mg/dL Low 0.52 - 1.25 mg/dL [place] EGFR IF NonAfrican [place] >90.0 >60 mL/min [place] Comment on above: KDIGO guidelines pro vide the following GFR categories: Stage GFR(ml/min/1.73 m2) Terms G1 >=90 Normal or high G2 60-89 Mildly decreased* G3a 45-59 Mildly to moderately decreased G3b 30-44 Moderately to severely decreased G4 15-29 Severely decreased G5 <15 Kidney failure *Relative to young adult level. In the absence of evidence of kidney damage, neither GFR category G1 nor G2 fulfill the criteria for CKD. The CKD-EPI equation is validated in individuals 18 years of age and older. Currently the best equation for estimating glomerular filtration rate (GFR) from serum creatinine in children is the Bedside Rosales equation. It is less accurate in patients with extremes of muscle mass, restriction of dietary protein, ingestion of creatine, extra-renal metabolism of creatinine, or treatment with medications that affect renal tubular creatinine secretion. GFR/1.73 sq M predicted among blacks MDRD (S/P/Bld) [Vol rate/Area] mL/min/{1.73_m2} >60 mL/min [place] Glucose [Mass/Vol] 90 mg/dL 70 - 100 mg/dL [place] Potassium [Moles/Vol] 3.2 mmol/L Low 3.5 - 5.1 mmol/L [place] Sodium [Moles/Vol] 142 mmol/L 135 - 145 mmol/L [place] Urea nitrogen [Mass/Vol] 21 mg/dL High 7 - 20 mg/d [place] CBC Auto Differentialon 05-2 0-2020 Absolute Baso # 0.1 10*3/uL 0 - 0.2 10*3/uL [place] Absolute Neut # 8.2 10*3/uL High 1.8 - 7 10*3/uL [place] Basophils/100 WBC (Bld) 1.2 % 0 - 2 % [place] Eosinophils (Bld) [#/Vol] 0.3 10*3/uL 0 - 0.5 10*3/uL [place] Eosinophils/100 WBC (Bld) 2.7 % 1 - 6 % [place] Erythrocyte distribution width (RBC) [Ratio] 15.5 % High 11.5 - 14.5 % [place] Granulocytes/100 WBC (Bld) 75.9 % 40 - 80 % [place] Hematocrit (Bld) [Volume fraction] 35.7 % 35 - 47 % [place] Hemoglobin (Bld) [Mass/Vol] 11.6 g/dL Low 11.7 - 16 g/dL [place] Interpretation and review of laboratory results Abnormal [place] Lymphocytes (Bld) [#/Vol] 1.4 10*3/uL 1 - 4.3 10*3/uL [place] Lymphocytes/100 WBC (Bld) 12.7 % Low 20 - 40 % [place] MCH (RBC) [Entitic mass] 32.0 pg 26 - 34 pg [place] MCHC (RBC) [Mass/Vol] 32.4 % 32 - 36 % [place] MCV (RBC) [Entitic vol] 98.6 fL High 79 - 98 fL [place] Monocytes (Bld) [#/Vol] 0.8 10*3/uL 0 - 0.8 10*3/uL [place] Monocytes/100 WBC (Bld) 7.5 % 2 - 10 % [place] Platelet mean volume (Bld) [Entitic vol] 7.4 fL 7.4 - 10.4 fL [place] Platelets (Bld) [#/Vol] 378 10*3/uL 140 - 440 10*3/uL [place] RBC (Bld) [#/Vol] 3.61 10*6/uL Low 3.8 - 5.2 10*6/uL [place] WBC (Bld) [#/Vol] 10.8 10*3/uL High 3.6 - 10.7 10*3/uL [place] Test Performed by [facility], [address] [place], [place] [id number] [place] [address] Hepatic Function Panelon Albumin [Mass/Vol] 3.4 g/dL Low 3.5 - 5 g/dL [place] ALP [Catalytic activity/Vol] 106 U/L 38 - 126 U/L [place] ALT [Catalytic activity/Vol] 156 U/L High 0 - 34 U/L [place] Comment on above: The ALT test is perf ormed by an updated assay method. Please note that the reference intervals have been changed and are now sex specific. AST [Catalytic activity/Vol] 103 U/L High 15 - 46 U/L [place] Bilirubin Ql (U) 0.7 mg/dL 0.2 - 1.3 mg/dL [place] Bilirubin.direct [Mass/Vol] 0.0 mg/dL 0 - 0.3 mg/dL [place] Protein [Mass/Vol] 7.2 g/dL 6.3 - 8.2 g/dL [place] Otheron 10-19-2019 Interpretation and review of laboratory results Abnormal [place] Test Performed by [facility] [employer] [facility], [address], [place], [place] [address] [place] POCT Glucoseon 10-19-2019 Glucose [Mass/Vol] 88 mg/dL 70 - 100 mg/dL [place] Comment on above: Test performed by ucose meter. Results may be 10%-15% lower than serum/plasma values. (CLIA ID [id number]) Test Performed by [facility], [address], [place], [place] [address] [place] Glucose [Mass/Vol] 93 mg/dL 70 - 100 mg/dL [place] Comment on above: Test performed by ucose meter. Results may be 10%-15% lower than serum/plasma values. (CLIA ID [id number]) Test Performed by [facility], [address], [place], [place] [address] [place] Basic Metabolic Panelon 05- Anion gap [Moles/Vol] 12 mmol/L [place] Calcium [Mass/Vol] 8.4 mg/dL 8.4 - 10. 4 mg/dL [place] Chloride [Moles/Vol] 107 mmol/L 98 - 10 7 mmol/L [place] CO2 [Moles/Vol] 23 mmol/L 22 - 30 mmol/L [place] Creatinine [Mass/Vol] 0.48 mg/dL Low 0.52 - 1.25 mg/dL [place] EGFR IF NonAfrican [place] >90.0 >60 mL/min [place] Comment on above: KDIGO guidelines pro vide the following GFR categories: Stage GFR(ml/min/1.73 m2) Terms G1 >=90 Normal or high G2 60-89 Mildly decreased* G3a 45-59 Mildly to moderately decreased G3b 30-44 Moderately to severely decreased G4 15-29 Severely decreased G5 <15 Kidney failure *Relative to young adult level. In the absence of evidence of kidney damage, neither GFR category G1 nor G2 fulfill the criteria for CKD. The CKD-EPI equation is validated in individuals 18 years of age and older. Currently the best equation for estimating glomerular filtration rate (GFR) from serum creatinine in children is the Bedside Rosales equation. It is less accurate in patients with extremes of muscle mass, restriction of dietary protein, ingestion of creatine, extra-renal metabolism of creatinine, or treatment with medications that affect renal tubular creatinine secretion. GFR/1.73 sq M predicted among blacks MDRD (S/P/Bld) [Vol rate/Area] mL/min/{1.73_m2} >60 mL/min [place] Glucose [Mass/Vol] 120 mg/dL High 70 - 100 mg/dL [place] Potassium [Moles/Vol] 3.1 mmol/L Low 3.5 - 5.1 mmol/L [place] Sodium [Moles/Vol] 141 mmol/L 135 - 145 mmol/L [place] Urea nitrogen [Mass/Vol] 23 mg/dL High 7 - 20 mg/d L [place] CBC Auto Differentialon 09-29 Absolute Baso # 0.1 10*3/uL 0 - 0.2 10*3/uL [place] Absolute Neut # 9.6 10*3/uL High 1.8 - 7 10*3/uL [place] Basophils/100 WBC (Bld) 1.0 % 0 - 2 % [place] Eosinophils (Bld) [#/Vol] 0.2 10*3/uL 0 - 0.5 10*3/uL [place] Eosinophils/100 WBC (Bld) 1.8 % 1 - 6 % [place] Erythrocyte distribution width (RBC) [Ratio] 15.6 % High 11.5 - 14.5 % [place] Granulocytes/100 WBC (Bld) 74.8 % 40 - 80 % [place] Hematocrit (Bld) [Volume fraction] 35.7 % 35 - 47 % [place] Hemoglobin (Bld) [Mass/Vol] 11.8 g/dL 11.7 - 16 g/dL [place] Interpretation and review of laboratory results Abnormal [place] Lymphocytes (Bld) [#/Vol] 2.0 10*3/uL 1 - 4.3 10*3/uL [place] Lymphocytes/100 WBC (Bld) 15.2 % Low 20 - 40 % [place] MCH (RBC) [Entitic mass] 31.8 pg 26 - 34 pg [place] MCHC (RBC) [Mass/Vol] 33.0 % 32 - 36 % [place] MCV (RBC) [Entitic vol] 96.4 fL 79 - 98 fL [place], [place] Monocytes (Bld) [#/Vol] 0.9 10*3/uL High 0 - 0.8 10*3/uL [place] Monocytes/100 WBC (Bld) 7.2 % 2 - 10 % [place] Platelet mean volume (Bld) [Entitic vol] 7.7 fL 7.4 - 10.4 fL [place] Platelets (Bld) [#/Vol] 459 10*3/uL High 140 - 440 10*3/uL [place] RBC (Bld) [#/Vol] 3.70 10*6/uL Low 3.8 - 5.2 10*6/uL [place] WBC (Bld) [#/Vol] 12.8 10*3/uL High 3.6 - 10.7 10*3/uL [place] Test Performed by [facility], [address] [place], [place] [id number] [place] [address] Hepatic Function Panelon Albumin [Mass/Vol] 3.6 g/dL 3.5 - 5 g/dL [place] ALP [Catalytic activity/Vol] 126 U/L 38 - 126 U/L [place] ALT [Catalytic activity/Vol] 165 U/L High 0 - 34 U/L [place] Comment on above: The ALT test is perf ormed by an updated assay method. Please note that the reference intervals have been changed and are now sex specific. AST [Catalytic activity/Vol] 110 U/L High 15 - 46 U/L [place] Bilirubin Ql (U) 0.7 mg/dL 0.2 - 1.3 mg/dL [place] Bilirubin.direct [Mass/Vol] 0.0 mg/dL 0 - 0.3 mg/dL [place] Protein [Mass/Vol] 7.6 g/dL 6.3 - 8.2 g/dL [place] Otheron 10-18-2019 Interpretation and review of laboratory results Abnormal [place] Test Performed by [facility], [address] [place], [place] [id number] [place] [address] POCT Arterialon 10-18-2019 Base Excess, Arterial -0.3 mmol/L -3 - 3 mmol/L [place] HCO3, Arterial 24.8 mmol/L 21 - 25 mmol/L [place] Oxygen saturation in Blood 97.0 % 95 - 100 % [place] pCO2, Arterial 41.1 mm[Hg] 35 - 45 mm[Hg] [place] pH, Arterial 7.388 [place] pO2, Arterial 92.2 mm[Hg] 80 - 100 mm[Hg] [place] Sodium [Moles/Vol] 80 mmol/L [place] Comment on above: Performed by CLIA ID : [id number] [place], [place] TCO2, Arterial 26 mmol/L 23 - 27 mmol/L [place] Test Performed by [facility], [address] POCT Glucoseon 10-18-2019 Glucose [Mass/Vol] 110 mg/dL High 70 - 100 mg/dL [place] Comment on above: Test performed by gl ucose meter. Results may be 10%-15% lower than serum/plasma values. (CLIA ID [id number]) Interpretation and review of laboratory results Abnormal [place] Test Performed by [facility], [facility] [address] XR CHEST PORTABLEon 10-18-[address] [facility], [facility] Incoming [facility] - 10/18/2019 5:57 PM EDT Patient Name: CHARLIE NGUYEN ---Diagnostic Radiology--- Exam Date/Time 10/18/2019 17:41:40 EDT Exam CR Chest Portable Ordering Physician Gene CORONA MICHAEL THOMAS Accession Number [id number] CPT4 Codes 25817 () Reason For Exam sob Report Portable chest 10/18/2019: Clinical Information: Shortness of breath. Findings: A single AP portable view of the chest was obtained at 1723 hours. Comparison was made to the prior study 10/14/2019. The trachea is midline. The heart is not enlarged. No focal areas of consolidation or volume loss are seen. There are no pleural effusions. The pulmonary vasculature may be at most mildly congested. The visualized bony structures are intact. Report Dictated on Workstation: [email or web address] --- Final --- Dictating Physician: MD CRANDALL RISA Signed Date and Time: 10/18/2019 5:56 pm Signed by: MD CRANDALL RISA Transcribed Date and Time: 10/18/2019 5:57 [place] Patient Name: CHARLIE NGUYEN ---Diagnostic Radiology--- Exam Date/Time 10/18/2019 17:41:40 EDT Exam CR Chest Portable Ordering Physician Gene CORONA MICHAEL THOMAS Accession Number [id number] CPT4 Codes 21879 () Reason For Exam sob Report Portable chest 10/18/2019: Clinical Information: Shortness of breath. Findings: A single AP portable view of the chest was obtained at 1723 hours. Comparison was made to the prior study 10/14/2019. The trachea is midline. The heart is not enlarged. No focal areas of consolidation or volume loss are seen. There are no pleural effusions. The pulmonary vasculature may be at most mildly congested. The visualized bony structures are intact. Report Dictated on Workstation: [email or web address] --- Final --- Dictating Physician: MD CRANDALL RISA Signed Date and Time: 10/18/2019 5:56 pm Signed by: MD CRANDALL RISA Transcribed Date and Time: 10/18/2019 5:57 [place] Basic Metabolic Panelon 09-29 Anion gap [Moles/Vol] 11 mmol/L [place] Calcium [Mass/Vol] 8.1 mg/dL Low 8.4 - 10. 4 mg/dL [place] Chloride [Moles/Vol] 107 mmol/L 98 - 10 7 mmol/L [place] CO2 [Moles/Vol] 24 mmol/L 22 - 30 mmol/L [place] Creatinine [Mass/Vol] 0.53 mg/dL 0.52 - 1.25 mg/dL [place] EGFR IF NonAfrican [place] >90.0 >60 mL/min [place] Comment on above: KDIGO guidelines pro vide the following GFR categories: Stage GFR(ml/min/1.73 m2) Terms G1 >=90 Normal or high G2 60-89 Mildly decreased* G3a 45-59 Mildly to moderately decreased G3b 30-44 Moderately to severely decreased G4 15-29 Severely decreased G5 <15 Kidney failure *Relative to young adult level. In the absence of evidence of kidney damage, neither GFR category G1 nor G2 fulfill the criteria for CKD. The CKD-EPI equation is validated in individuals 18 years of age and older. Currently the best equation for estimating glomerular filtration rate (GFR) from serum creatinine in children is the Bedside Rosales equation. It is less accurate in patients with extremes of muscle mass, restriction of dietary protein, ingestion of creatine, extra-renal metabolism of creatinine, or treatment with medications that affect renal tubular creatinine secretion. GFR/1.73 sq M predicted among blacks MDRD (S/P/Bld) [Vol rate/Area] mL/min/{1.73_m2} >60 mL/min [place] Glucose [Mass/Vol] 105 mg/dL High 70 - 100 mg/dL [place] Potassium [Moles/Vol] 3.6 mmol/L 3.5 - 5.1 mmol/L [place] Sodium [Moles/Vol] 142 mmol/L 135 - 145 mmol/L [place] Urea nitrogen [Mass/Vol] 24 mg/dL High 7 - 20 mg/d L [place] CBC Auto Differentialon 05-1 Absolute Baso # 0.2 10*3/uL 0 - 0.2 10*3/uL [place] Absolute Neut # 13.1 10*3/uL High 1.8 - 7 10*3/uL [place] Basophils/100 WBC (Bld) 1.3 % 0 - 2 % [place] Eosinophils (Bld) [#/Vol] 0.4 10*3/uL 0 - 0.5 10*3/uL [place] Eosinophils/100 WBC (Bld) 2.4 % 1 - 6 % [place] Erythrocyte distribution width (RBC) [Ratio] 15.3 % High 11.5 - 14.5 % [place] Granulocytes/100 WBC (Bld) 78.5 % 40 - 80 % [place] Hematocrit (Bld) [Volume fraction] 36.2 % 35 - 47 % [place] Hemoglobin (Bld) [Mass/Vol] 12.0 g/dL 11.7 - 16 g/dL [place] Interpretation and review of laboratory results Abnormal [place] Lymphocytes (Bld) [#/Vol] 2.1 10*3/uL 1 - 4.3 10*3/uL [place] Lymphocytes/100 WBC (Bld) 12.8 % Low 20 - 40 % [place] MCH (RBC) [Entitic mass] 32.3 pg 26 - 34 pg [place] MCHC (RBC) [Mass/Vol] 33.1 % 32 - 36 % [place] MCV (RBC) [Entitic vol] 97.6 fL 79 - 98 fL [place] Monocytes (Bld) [#/Vol] 0.8 10*3/uL 0 - 0.8 10*3/uL [place] Monocytes/100 WBC (Bld) 5.0 % 2 - 10 % [place] Platelet mean volume (Bld) [Entitic vol] 7.3 fL Low 7.4 - 10.4 fL [place] Platelets (Bld) [#/Vol] 575 10*3/uL High 140 - 440 10*3/uL [place] RBC (Bld) [#/Vol] 3.71 10*6/uL Low 3.8 - 5.2 10*6/uL [place] WBC (Bld) [#/Vol] 16.7 10*3/uL High 3.6 - 10.7 10*3/uL [place] Test Performed by [facility], [address], [place], [place] [address] [place] Hepatic Function Panelon Albumin [Mass/Vol] 3.4 g/dL Low 3.5 - 5 g/dL [place] ALP [Catalytic activity/Vol] 131 U/L High 38 - 126 U/L [place] ALT [Catalytic activity/Vol] 219 U/L High 0 - 34 U/L [place] Comment on above: The ALT test is perf ormed by an updated assay method. Please note that the reference intervals have been changed and are now sex specific. AST [Catalytic activity/Vol] 86 U/L High 15 - 46 U/L [place] Bilirubin Ql (U) 0.8 mg/dL 0.2 - 1.3 mg/dL [place] Bilirubin.direct [Mass/Vol] 0.0 mg/dL 0 - 0.3 mg/dL [place] Protein [Mass/Vol] 7.3 g/dL 6.3 - 8.2 g/dL [place] Otheron 10-16-2019 Interpretation and review of laboratory results Abnormal [place] [facility], [address], [place], [place] [address] [place] Basic Metabolic Panelon 09-29 Anion gap [Moles/Vol] 10 mmol/L [place] Calcium [Mass/Vol] 8.2 mg/dL Low 8.4 - 10. 4 mg/dL [place] Chloride [Moles/Vol] 109 mmol/L High 98 - 10 7 mmol/L [place] CO2 [Moles/Vol] 24 mmol/L 22 - 30 mmol/L [place] Creatinine [Mass/Vol] 0.56 mg/dL 0.52 - 1.25 mg/dL [place] EGFR IF NonAfrican [place] >90.0 >60 mL/min [place] Comment on above: KDIGO guidelines pro vide the following GFR categories: Stage GFR(ml/min/1.73 m2) Terms G1 >=90 Normal or high G2 60-89 Mildly decreased* G3a 45-59 Mildly to moderately decreased G3b 30-44 Moderately to severely decreased G4 15-29 Severely decreased G5 <15 Kidney failure *Relative to young adult level. In the absence of evidence of kidney damage, neither GFR category G1 nor G2 fulfill the criteria for CKD. The CKD-EPI equation is validated in individuals 18 years of age and older. Currently the best equation for estimating glomerular filtration rate (GFR) from serum creatinine in children is the Bedside Rosales equation. It is less accurate in patients with extremes of muscle mass, restriction of dietary protein, ingestion of creatine, extra-renal metabolism of creatinine, or treatment with medications that affect renal tubular creatinine secretion. GFR/1.73 sq M predicted among blacks MDRD (S/P/Bld) [Vol rate/Area] mL/min/{1.73_m2} >60 mL/min [place] Glucose [Mass/Vol] 117 mg/dL High 70 - 100 mg/dL [place] Potassium [Moles/Vol] 3.6 mmol/L 3.5 - 5.1 mmol/L [place] Sodium [Moles/Vol] 143 mmol/L 135 - 145 mmol/L [place] Urea nitrogen [Mass/Vol] 24 mg/dL High 7 - 20 mg/d L [place] CBC Auto Differentialon 09-29 Absolute Baso # 0.2 10*3/uL 0 - 0.2 10*3/uL [place] Absolute Neut # 13.2 10*3/uL High 1.8 - 7 10*3/uL [place] Basophils/100 WBC (Bld) 1.1 % 0 - 2 % [place] Eosinophils (Bld) [#/Vol] 0.4 10*3/uL 0 - 0.5 10*3/uL [place] Eosinophils/100 WBC (Bld) 2.5 % 1 - 6 % [place] Erythrocyte distribution width (RBC) [Ratio] 15.6 % High 11.5 - 14.5 % [place] Granulocytes/100 WBC (Bld) 76.2 % 40 - 80 % [place] Hematocrit (Bld) [Volume fraction] 38.5 % 35 - 47 % [place] Hemoglobin (Bld) [Mass/Vol] 12.2 g/dL 11.7 - 16 g/dL [place] Interpretation and review of laboratory results Abnormal [place] Lymphocytes (Bld) [#/Vol] 2.5 10*3/uL 1 - 4.3 10*3/uL [place] Lymphocytes/100 WBC (Bld) 14.3 % Low 20 - 40 % [place] MCH (RBC) [Entitic mass] 31.5 pg 26 - 34 pg [place] MCHC (RBC) [Mass/Vol] 31.8 % Low 32 - 36 % [place] MCV (RBC) [Entitic vol] 99.0 fL High 79 - 98 fL [place] Monocytes (Bld) [#/Vol] 1.0 10*3/uL High 0 - 0.8 10*3/uL [place] Monocytes/100 WBC (Bld) 5.9 % 2 - 10 % [place] Platelet mean volume (Bld) [Entitic vol] 7.4 fL 7.4 - 10.4 fL [place] Platelets (Bld) [#/Vol] 654 10*3/uL High 140 - 440 10*3/uL [place] RBC (Bld) [#/Vol] 3.88 10*6/uL 3.8 - 5.2 10*6/uL [place] WBC (Bld) [#/Vol] 17.4 10*3/uL High 3.6 - 10.7 10*3/uL [place] Test Performed by [facility], [address] [place], [place], [place] [address] [place] Hepatic Function Panelon Albumin [Mass/Vol] 3.3 g/dL Low 3.5 - 5 g/dL [place] ALP [Catalytic activity/Vol] 139 U/L High 38 - 126 U/L [place] ALT [Catalytic activity/Vol] 289 U/L High 0 - 34 U/L [place] Comment on above: The ALT test is perf ormed by an updated assay method. Please note that the reference intervals have been changed and are now sex specific. AST [Catalytic activity/Vol] 146 U/L High 15 - 46 U/L [place] Bilirubin Ql (U) 0.7 mg/dL 0.2 - 1.3 mg/dL [place] Bilirubin.direct [Mass/Vol] 0.0 mg/dL 0 - 0.3 mg/dL [place] Protein [Mass/Vol] 6.8 g/dL 6.3 - 8.2 g/dL [place] Otheron 10-15-2019 Interpretation and review of laboratory results Abnormal [place] Test Performed by [facility], [address] [place] [address] [place] CBC Auto Differentialon 09-29 Absolute Baso # 0.3 10*3/uL High 0 - 0.2 10*3/uL [place] Absolute Neut # 15.3 10*3/uL High 1.8 - 7 10*3/uL [place] Basophils/100 WBC (Bld) 1.4 % 0 - 2 % [place] Eosinophils (Bld) [#/Vol] 0.2 10*3/uL 0 - 0.5 10*3/uL [place] Eosinophils/100 WBC (Bld) 0.8 % Low 1 - 6 % [place] Erythrocyte distribution width (RBC) [Ratio] 15.5 % High 11.5 - 14.5 % [place] Granulocytes/100 WBC (Bld) 77.4 % 40 - 80 % [place] Hematocrit (Bld) [Volume fraction] 37.4 % 35 - 47 % [place] Hemoglobin (Bld) [Mass/Vol] 12.2 g/dL 11.7 - 16 g/dL [place] Interpretation and review of laboratory results Abnormal [place] Lymphocytes (Bld) [#/Vol] 2.6 10*3/uL 1 - 4.3 10*3/uL [place] Lymphocytes/100 WBC (Bld) 13.1 % Low 20 - 40 % [place] MCH (RBC) [Entitic mass] 31.6 pg 26 - 34 pg [place] MCHC (RBC) [Mass/Vol] 32.6 % 32 - 36 % [place] MCV (RBC) [Entitic vol] 96.9 fL 79 - 98 fL [place] Monocytes (Bld) [#/Vol] 1.4 10*3/uL High 0 - 0.8 10*3/uL [place] Monocytes/100 WBC (Bld) 7.3 % 2 - 10 % [place] Platelet mean volume (Bld) [Entitic vol] 7.6 fL 7.4 - 10.4 fL [place] Platelets (Bld) [#/Vol] 669 10*3/uL High 140 - 440 10*3/uL [place] RBC (Bld) [#/Vol] 3.86 10*6/uL 3.8 - 5.2 10*6/uL [place] WBC (Bld) [#/Vol] 19.8 10*3/uL High 3.6 - 10.7 10*3/uL [place] Test Performed by [facility] [employer] [facility], [address] [place] [address] Str. [place], [place] [address] [place] Comprehensive Metabolic Pane rafiq 10-14-2019 Albumin [Mass/Vol] 3.2 g/dL Low 3.5 - 5 g/dL [place] ALP [Catalytic activity/Vol] 155 U/L High 38 - 126 U/L [place] ALT [Catalytic activity/Vol] 221 U/L High 0 - 34 U/L [place] Comment on above: The ALT test is perf ormed by an updated assay method. Please note that the reference intervals have been changed and are now sex specific. Anion gap [Moles/Vol] 9 mmol/L [place] AST [Catalytic activity/Vol] 141 U/L High 15 - 46 U/L [place] Bilirubin Ql (U) 0.8 mg/dL 0.2 - 1.3 mg/dL [place] Calcium [Mass/Vol] 8.2 mg/dL Low 8.4 - 10. 4 mg/dL [place] Chloride [Moles/Vol] 105 mmol/L 98 - 10 7 mmol/L [place] CO2 [Moles/Vol] 27 mmol/L 22 - 30 mmol/L [place] Creatinine [Mass/Vol] 0.68 mg/dL 0.52 - 1.25 mg/dL [place] EGFR IF NonAfrican [place] >90.0 >60 mL/min [place] Comment on above: KDIGO guidelines pro vide the following GFR categories: Stage GFR(ml/min/1.73 m2) Terms G1 >=90 Normal or high G2 60-89 Mildly decreased* G3a 45-59 Mildly to moderately decreased G3b 30-44 Moderately to severely decreased G4 15-29 Severely decreased G5 <15 Kidney failure *Relative to young adult level. In the absence of evidence of kidney damage, neither GFR category G1 nor G2 fulfill the criteria for CKD. The CKD-EPI equation is validated in individuals 18 years of age and older. Currently the best equation for estimating glomerular filtration rate (GFR) from serum creatinine in children is the Bedside Rosales equation. It is less accurate in patients with extremes of muscle mass, restriction of dietary protein, ingestion of creatine, extra-renal metabolism of creatinine, or treatment with medications that affect renal tubular creatinine secretion. GFR/1.73 sq M predicted among blacks MDRD (S/P/Bld) [Vol rate/Area] mL/min/{1.73_m2} >60 mL/min [place] Glucose [Mass/Vol] 106 mg/dL High 70 - 100 mg/dL [place] Interpretation and review of laboratory results Abnormal [place] Potassium [Moles/Vol] 3.1 mmol/L Low 3.5 - 5.1 mmol/L [place] Protein [Mass/Vol] 7.0 g/dL 6.3 - 8.2 g/dL [place] Sodium [Moles/Vol] 141 mmol/L 135 - 145 mmol/L [place] Urea nitrogen [Mass/Vol] 22 mg/dL High 7 - 20 mg/d L [place] HEPATITIS PANEL, ACUTEon HAV IgM IA Qn (S) NOT DETECTED Not-Detect ed NA [place] Hep B Core Ab, IgM NOT DETECTED Not-Detec senait NA [place] Hepatitis B Surface Ag NOT DETECTED Not-D etected NA [place] Hepatitis C Ab NOT DETECTED Not-Detected NA [place] Comment on above: Patients with DETECT ED Hepatitis C Ab results should have a new specimen submitted for supplemental testing with a Hepatitis C Quantitative RNA assay (viral load), if clinically indicated. Test Performed by [facility], [address] [place] [address] [place] Magnesiumon 10-14-2019 Magnesium [Mass/Vol] 1.7 mg/dL 1.6 - 2 .3 mg/dL [place] Other 10-14-2019 Test Performed by [facility], [address] [place], [place] [address] [place] Phosphoruson 10-14-2019 Phosphate [Mass/Vol] 3.5 mg/dL 2.5 - 4 .5 mg/dL [place] XR CHEST PORTABLEon 10-14-19 20 [facility] Incoming [facility] - 10/14/2019 9:19 AM EDT Patient Name: CHARLIE NGUYEN ---Diagnostic Radiology--- Exam Date/Time 10/14/2019 08:30:00 EDT Exam CR Chest Portable Ordering Physician CLINTON DELEON Accession Number [id number] CPT4 Codes 77251 () Reason For Exam resp failure/ pneumonia/ effusion/ on vent Report Indication: Respiratory failure. Single portable frontal view of the chest timed 805 is compared to the study dated 10/13/2019. The patient is rotated. Again identified is a right-sided central line. No sizable pneumothorax is seen. There are low lung volumes which accentuates the pulmonary vascularity. There may be mild superimposed pulmonary vascular congestion as well. There is mild haziness in the lung bases which has improved. This may be related to atelectatic change and/or layering of small effusions. There are no areas of consolidation. The heart is unchanged in size. The mediastinum is unchanged in appearance. Old healed right-sided rib fractures are visualized. Report Dictated on --- Final --- Dictating Physician: DO VENTURA ANTHONY Signed Date and Time: 10/14/2019 9:18 am Signed by: DO VENTURA ANTHONY Transcribed Date and Time: 10/14/2019 9:19 [place] Patient Name: CHARLIE NGUYEN ---Diagnostic Radiology--- Exam Date/Time 10/14/2019 08:30:00 EDT Exam CR Chest Portable Ordering Physician CLINTON DELEON Accession Number [id number] CPT4 Codes 31718 () Reason For Exam resp failure/ pneumonia/ effusion/ on vent Report Indication: Respiratory failure. Single portable frontal view of the chest timed 805 is compared to the study dated 10/13/2019. The patient is rotated. Again identified is a right-sided central line. No sizable pneumothorax is seen. There are low lung volumes which accentuates the pulmonary vascularity. There may be mild superimposed pulmonary vascular congestion as well. There is mild haziness in the lung bases which has improved. This may be related to atelectatic change and/or layering of small effusions. There are no areas of consolidation. The heart is unchanged in size. The mediastinum is unchanged in appearance. Old healed right-sided rib fractures are visualized. Report Dictated on --- Final --- Dictating Physician: DO VENTURA ANTHONY Signed Date and Time: 10/14/2019 9:18 am Signed by: DO VENTURA ANTHONY Transcribed Date and Time: 10/14/2019 9:19 [place] CBC Auto Differentialon 09-29 Absolute Baso # 0.1 10*3/uL 0 - 0.2 10*3/uL [place] Absolute Neut # 13.4 10*3/uL High 1.8 - 7 10*3/uL [place] Basophils/100 WBC (Bld) 0.8 % 0 - 2 % [place] Eosinophils (Bld) [#/Vol] 0.0 10*3/uL 0 - 0.5 10*3/uL [place] Eosinophils/100 WBC (Bld) 0.0 % Low 1 - 6 % [place] Erythrocyte distribution width (RBC) [Ratio] 14.7 % High 11.5 - 14.5 % [place] Granulocytes/100 WBC (Bld) 84.2 % High 40 - 80 % [place] Hematocrit (Bld) [Volume fraction] 36.1 % 35 - 47 % [place] Hemoglobin (Bld) [Mass/Vol] 11.9 g/dL 11.7 - 16 g/dL [place] Lymphocytes (Bld) [#/Vol] 1.5 10*3/uL 1 - 4.3 10*3/uL [place] Lymphocytes/100 WBC (Bld) 9.7 % Low 20 - 40 % [place] MCH (RBC) [Entitic mass] 31.6 pg 26 - 34 pg [place] MCHC (RBC) [Mass/Vol] 33.1 % 32 - 36 % [place] MCV (RBC) [Entitic vol] 95.7 fL 79 - 98 fL [place] Monocytes (Bld) [#/Vol] 0.8 10*3/uL 0 - 0.8 10*3/uL [place] Monocytes/100 WBC (Bld) 5.3 % 2 - 10 % [place] Platelet mean volume (Bld) [Entitic vol] 7.7 fL 7.4 - 10.4 fL [place] Platelets (Bld) [#/Vol] 668 10*3/uL High 140 - 440 10*3/uL [place] RBC (Bld) [#/Vol] 3.78 10*6/uL Low 3.8 - 5.2 10*6/uL [place] WBC (Bld) [#/Vol] 15.9 10*3/uL High 3.6 - 10.7 10*3/uL [place] Comprehensive Metabolic Pane rafiq 10-13-2019 Albumin [Mass/Vol] 3.4 g/dL Low 3.5 - 5 g/dL [place] ALP [Catalytic activity/Vol] 174 U/L High 38 - 126 U/L [place] ALT [Catalytic activity/Vol] 122 U/L High 0 - 34 U/L [place] Comment on above: The ALT test is perf ormed by an updated assay method. Please note that the reference intervals have been changed and are now sex specific. Anion gap [Moles/Vol] 9 mmol/L [place] AST [Catalytic activity/Vol] 118 U/L High 15 - 46 U/L [place] Bilirubin Ql (U) 0.9 mg/dL 0.2 - 1.3 mg/dL [place] Calcium [Mass/Vol] 8.2 mg/dL Low 8.4 - 10. 4 mg/dL [place] Chloride [Moles/Vol] 105 mmol/L 98 - 10 7 mmol/L [place] CO2 [Moles/Vol] 28 mmol/L 22 - 30 mmol/L [place] Creatinine [Mass/Vol] 0.52 mg/dL 0.52 - 1.25 mg/dL [place] EGFR IF NonAfrican [place] >90.0 >60 mL/min [place] Comment on above: KDIGO guidelines pro vide the following GFR categories: Stage GFR(ml/min/1.73 m2) Terms G1 >=90 Normal or high G2 60-89 Mildly decreased* G3a 45-59 Mildly to moderately decreased G3b 30-44 Moderately to severely decreased G4 15-29 Severely decreased G5 <15 Kidney failure *Relative to young adult level. In the absence of evidence of kidney damage, neither GFR category G1 nor G2 fulfill the criteria for CKD. The CKD-EPI equation is validated in individuals 18 years of age and older. Currently the best equation for estimating glomerular filtration rate (GFR) from serum creatinine in children is the Bedside Rosales equation. It is less accurate in patients with extremes of muscle mass, restriction of dietary protein, ingestion of creatine, extra-renal metabolism of creatinine, or treatment with medications that affect renal tubular creatinine secretion. GFR/1.73 sq M predicted among blacks MDRD (S/P/Bld) [Vol rate/Area] mL/min/{1.73_m2} >60 mL/min [place] Glucose [Mass/Vol] 110 mg/dL High 70 - 100 mg/dL [place] Potassium [Moles/Vol] 2.8 mmol/L Low 3.5 - 5.1 mmol/L [place] Protein [Mass/Vol] 7.2 g/dL 6.3 - 8.2 g/dL [place] Sodium [Moles/Vol] 142 mmol/L 135 - 145 mmol/L [place] Urea nitrogen [Mass/Vol] 15 mg/dL 7 - 20 mg/d L [place] Magnesiumon 10-13-2019 Magnesium [Mass/Vol] 1.8 mg/dL 1.6 - 2 .3 mg/dL [place] Otheron 10-13-2019 Interpretation and review of laboratory results Abnormal [place] Test Performed by [facility], [address] [place] [id number] [place] Phosphoruson 10-13-2019 Phosphate [Mass/Vol] 2.6 mg/dL 2.5 - 4 .5 mg/dL [place] Potassiumon 10-13-2019 Potassium [Moles/Vol] 3.4 mmol/L Low 3.5 - 5.1 mmol/L [place] XR CHEST PORTABLEon 10-13-19 20 Patient Name: CHARLIE NGUYEN ---Diagnostic Radiology--- Exam Date/Time 10/13/2019 05:36:07 EDT Exam CR Chest Portable Ordering Physician CLINTON DELEON Accession Number [id number] CPT4 Codes 98208 () Reason For Exam resp failure/ pneumonia/ effusion/ on vent Report PORTABLE CHEST: INDICATION: Respiratory failure COMPARISON: 10/12/2019 Obtained at 0505 hours. A single portable AP radiograph of the chest was obtained. The heart is borderline in size. The mediastinal silhouette is normal. There is worsening right basal infiltrate superimposed upon chronic interstitial changes. Small effusions are present. There is biapical pleural thickening. Arthritic changes of the spine and shoulders are present. A right internal jugular central venous catheter is present with the tip overlying the superior vena cava. IMPRESSION: Slight worsening of the right basal infiltrate. Small bilateral effusions. Report Dictated on Workstation: [id number] --- Final --- Dictating Physician: DO DICKEY ALFRED Signed Date and Time: 10/13/2019 5:57 am Signed by: DO DICKEY ALFRED Transcribed Date and Time: 10/13/2019 5:58 [place] Rodolfo, [place] Incoming Radiology Results From [facility] - 10/13/2019 5:58 AM EDT Patient Name: CHARLIE NGUYEN ---Diagnostic Radiology--- Exam Date/Time 10/13/2019 05:36:07 EDT Exam CR Chest Portable Ordering Physician CLINTON DELEON Accession Number [id number] CPT4 Codes 77494 () Reason For Exam resp failure/ pneumonia/ effusion/ on vent Report PORTABLE CHEST: INDICATION: Respiratory failure COMPARISON: 10/12/2019 Obtained at 0505 hours. A single portable AP radiograph of the chest was obtained. The heart is borderline in size. The mediastinal silhouette is normal. There is worsening right basal infiltrate superimposed upon chronic interstitial changes. Small effusions are present. There is biapical pleural thickening. Arthritic changes of the spine and shoulders are present. A right internal jugular central venous catheter is present with the tip overlying the superior vena cava. IMPRESSION: Slight worsening of the right basal infiltrate. Small bilateral effusions. Report Dictated on Workstation: [id number] --- Final --- Dictating Physician: DO DICKEY ALFRED Signed Date and Time: 10/13/2019 5:57 am Signed by: DO DICKEY ALFRED Transcribed Date and Time: 10/13/2019 5:58 [place] CBC Auto Differentialon 05- Absolute Baso # 0.0 10*3/uL 0 - 0.2 10*3/uL [place] Absolute Neut # 8.0 10*3/uL High 1.8 - 7 10*3/uL [place] Basophils/100 WBC (Bld) 0.3 % 0 - 2 % [place] Eosinophils (Bld) [#/Vol] 0.0 10*3/uL 0 - 0.5 10*3/uL [place] Eosinophils/100 WBC (Bld) 0.0 % Low 1 - 6 % [place] Erythrocyte distribution width (RBC) [Ratio] 15.2 % High 11.5 - 14.5 % [place] Granulocytes/100 WBC (Bld) 84.5 % High 40 - 80 % [place] Hematocrit (Bld) [Volume fraction] 32.7 % Low 35 - 47 % [place] Hemoglobin (Bld) [Mass/Vol] 10.7 g/dL Low 11.7 - 16 g/dL [place] Interpretation and review of laboratory results Abnormal [place] Lymphocytes (Bld) [#/Vol] 0.9 10*3/uL Low 1 - 4.3 10*3/uL [place] Lymphocytes/100 WBC (Bld) 9.3 % Low 20 - 40 % [place] MCH (RBC) [Entitic mass] 31.9 pg 26 - 34 pg [place] MCHC (RBC) [Mass/Vol] 32.9 % 32 - 36 % [place] MCV (RBC) [Entitic vol] 97.2 fL 79 - 98 fL [place] Monocytes (Bld) [#/Vol] 0.6 10*3/uL 0 - 0.8 10*3/uL [place] Monocytes/100 WBC (Bld) 5.9 % 2 - 10 % [place] Platelet mean volume (Bld) [Entitic vol] 8.0 fL 7.4 - 10.4 fL [place] Platelets (Bld) [#/Vol] 571 10*3/uL High 140 - 440 10*3/uL [place] RBC (Bld) [#/Vol] 3.36 10*6/uL Low 3.8 - 5.2 10*6/uL [place] WBC (Bld) [#/Vol] 9.4 10*3/uL 3.6 - 10.7 10*3/uL [place] Test Performed by [facility] [employer] [facility], [address], [place], [place] [address] [place] Comprehensive Metabolic Pane rafiq 10-12-2019 Albumin [Mass/Vol] 3.3 g/dL Low 3.5 - 5 g/dL [place] ALP [Catalytic activity/Vol] 157 U/L High 38 - 126 U/L [place] ALT [Catalytic activity/Vol] 61 U/L High 0 - 34 U/L [place] Comment on above: The ALT test is perf ormed by an updated assay method. Please note that the reference intervals have been changed and are now sex specific. Anion gap [Moles/Vol] 8 mmol/L [place] AST [Catalytic activity/Vol] 69 U/L High 15 - 46 U/L [place] Bilirubin Ql (U) 0.5 mg/dL 0.2 - 1.3 mg/dL [place] Calcium [Mass/Vol] 8.0 mg/dL Low 8.4 - 10. 4 mg/dL [place] Chloride [Moles/Vol] 103 mmol/L 98 - 10 7 mmol/L [place] CO2 [Moles/Vol] 29 mmol/L 22 - 30 mmol/L [place] Creatinine [Mass/Vol] 0.48 mg/dL Low 0.52 - 1.25 mg/dL [place] EGFR IF NonAfrican [place] >90.0 >60 mL/min [place] Comment on above: KDIGO guidelines pro vide the following GFR categories: Stage GFR(ml/min/1.73 m2) Terms G1 >=90 Normal or high G2 60-89 Mildly decreased* G3a 45-59 Mildly to moderately decreased G3b 30-44 Moderately to severely decreased G4 15-29 Severely decreased G5 <15 Kidney failure *Relative to young adult level. In the absence of evidence of kidney damage, neither GFR category G1 nor G2 fulfill the criteria for CKD. The CKD-EPI equation is validated in individuals 18 years of age and older. Currently the best equation for estimating glomerular filtration rate (GFR) from serum creatinine in children is the Bedside Rosales equation. It is less accurate in patients with extremes of muscle mass, restriction of dietary protein, ingestion of creatine, extra-renal metabolism of creatinine, or treatment with medications that affect renal tubular creatinine secretion. GFR/1.73 sq M predicted among blacks MDRD (S/P/Bld) [Vol rate/Area] mL/min/{1.73_m2} >60 mL/min [place] Glucose [Mass/Vol] 168 mg/dL High 70 - 100 mg/dL [place] Interpretation and review of laboratory results Abnormal [place] Potassium [Moles/Vol] 3.7 mmol/L 3.5 - 5.1 mmol/L [place] Protein [Mass/Vol] 6.9 g/dL 6.3 - 8.2 g/dL [place] Sodium [Moles/Vol] 140 mmol/L 135 - 145 mmol/L [place] Urea nitrogen [Mass/Vol] 21 mg/dL High 7 - 20 mg/d L [place] Culture, Respiratoryon 10-11 Interpretation and review of laboratory results Abnormal [place] Respiratory Culture Rare Negative for PBP2a (MSSA). [place] Respiratory Culture Staphylococcus aureus Abnormal [place] Respiratory Culture Few normal respiratory naomi. [facility] [place] [place] Test Performed by [facility], [address] [place] [id number] Specimen Source Comment:Endotracheal [place] Magnesiumon 10-12-2019 Magnesium [Mass/Vol] 1.8 mg/dL 1.6 - 2 .3 mg/dL [place] Otheron 10-12-2019 Test Performed by [facility], [address] [place], [place] [address] [place] POCT Arterialon 10-12-2019 Base Excess, Arterial 3.1 mmol/L High -3 - 3 mmol/L [place] HCO3, Arterial 27.6 mmol/L High 21 - 25 mmol/L [place] Interpretation and review of laboratory results Abnormal [place] Oxygen saturation in Blood 94.8 % Low 95 - 100 % [place] pCO2, Arterial 40.8 mm[Hg] 35 - 45 mm[Hg] [place] pH, Arterial 7.438 [place] pO2, Arterial 72.1 mm[Hg] Low 80 - 100 mm[Hg] [place] Sodium [Moles/Vol] 45 mmol/L [place] Comment on above: Performed by [employer] ID : [id number] [place], [place] TCO2, Arterial 28.8 mmol/L High 23 - 27 mmol/L [place] Test Performed by [facility], [address] [place], [place] [id number] [place] [address] Phosphoruson 10-12-2019 Phosphate [Mass/Vol] 3.5 mg/dL 2.5 - 4 .5 mg/dL [place] Vancomycin, [place] 020 Interpretation and review of laboratory results Abnormal [place] Vancomycin Tr 11.5 ug/mL Low 15 - 20 ug/mL [place] Comment on above: . Test Performed by [facility], [address] [place], [place] [id number] [place] [address] XR CHEST PORTABLEon 10-12-19 20 Rodolfo, [facility] Incoming Radiology Results From [facility] - 10/12/2019 4:52 AM EDT Patient Name: CHARLIE NGUYEN ---Diagnostic Radiology--- Exam Date/Time 10/12/2019 04:18:26 EDT Exam CR Chest Portable Ordering Physician CLINTON DELEON Accession Number [id number] CPT4 Codes 18952 () Reason For Exam resp failure/ pneumonia/ effusion/ on vent Report PORTABLE CHEST: INDICATION: Respiratory failure COMPARISON: 10/11/2019 Obtained at 0419 hours. A single portable AP radiograph of the chest was obtained with a low-level of inspiration. The heart is borderline enlarged. The mediastinal silhouette is normal. Chronic interstitial changes are present with bibasal infiltrates and right basal atelectasis. Small bibasal effusions are noted. There is no pleural thickening. The osseous structures are unremarkable. The ET tube and NG tube are unchanged. A right internal jugular central venous catheter is present with the tip overlying the superior vena cava. IMPRESSION: No significant interval change. Continued bibasal infiltrates and effusions with right sided atelectasis Report Dictated on Workstation: [id number] --- Final --- Dictating Physician: DO DICKEY ALFRED Signed Date and Time: 10/12/2019 4:51 am Signed by: DO DICKEY ALFRED Transcribed Date and Time: 10/12/2019 4:52 [place] Patient Name: CHARLIE NGUYEN ---Diagnostic Radiology--- Exam Date/Time 10/12/2019 04:18:26 EDT Exam CR Chest Portable Ordering Physician CLINTON DELEON Accession Number [id number] CPT4 Codes 48506 () Reason For Exam resp failure/ pneumonia/ effusion/ on vent Report PORTABLE CHEST: INDICATION: Respiratory failure COMPARISON: 10/11/2019 Obtained at 0419 hours. A single portable AP radiograph of the chest was obtained with a low-level of inspiration. The heart is borderline enlarged. The mediastinal silhouette is normal. Chronic interstitial changes are present with bibasal infiltrates and right basal atelectasis. Small bibasal effusions are noted. There is no pleural thickening. The osseous structures are unremarkable. The ET tube and NG tube are unchanged. A right internal jugular central venous catheter is present with the tip overlying the superior vena cava. IMPRESSION: No significant interval change. Continued bibasal infiltrates and effusions with right sided atelectasis Report Dictated on Workstation: [id number] --- Final --- Dictating Physician: DO DICKEY ALFRED Signed Date and Time: 10/12/2019 4:51 am Signed by: DO DICKEY ALFRED Transcribed Date and Time: 10/12/2019 4:52 [place] CBC Auto Differentialon 05-1 Absolute Baso # 0.0 10*3/uL 0 - 0.2 10*3/uL [place] Absolute Neut # 6.2 10*3/uL 1.8 - 7 10*3/uL [place] Basophils/100 WBC (Bld) 0.4 % 0 - 2 % [place] Eosinophils (Bld) [#/Vol] 0.0 10*3/uL 0 - 0.5 10*3/uL [place] Eosinophils/100 WBC (Bld) 0.1 % Low 1 - 6 % [place] Erythrocyte distribution width (RBC) [Ratio] 15.2 % High 11.5 - 14.5 % [place] Granulocytes/100 WBC (Bld) 75.5 % 40 - 80 % [place] Hematocrit (Bld) [Volume fraction] 30.1 % Low 35 - 47 % [place] Hemoglobin (Bld) [Mass/Vol] 9.8 g/dL Low 11.7 - 16 g/dL [place] Interpretation and review of laboratory results Abnormal [place] Lymphocytes (Bld) [#/Vol] 1.2 10*3/uL 1 - 4.3 10*3/uL [place] Lymphocytes/100 WBC (Bld) 14.1 % Low 20 - 40 % [place] MCH (RBC) [Entitic mass] 31.8 pg 26 - 34 pg [place] MCHC (RBC) [Mass/Vol] 32.7 % 32 - 36 % [place] MCV (RBC) [Entitic vol] 97.1 fL 79 - 98 fL [place] Monocytes (Bld) [#/Vol] 0.8 10*3/uL 0 - 0.8 10*3/uL [place] Monocytes/100 WBC (Bld) 9.9 % 2 - 10 % [place] Platelet mean volume (Bld) [Entitic vol] 7.7 fL 7.4 - 10.4 fL [place] Platelets (Bld) [#/Vol] 494 10*3/uL High 140 - 440 10*3/uL [place] RBC (Bld) [#/Vol] 3.10 10*6/uL Low 3.8 - 5.2 10*6/uL [place] WBC (Bld) [#/Vol] 8.2 10*3/uL 3.6 - 10.7 10*3/uL [place] Test Performed by [facility] [employer] [facility], [address], [place], [place] [address] [place] Comprehensive Metabolic Pane rafiq 10-11-2019 Albumin [Mass/Vol] 3.1 g/dL Low 3.5 - 5 g/dL [place] ALP [Catalytic activity/Vol] 163 U/L High 38 - 126 U/L [place] ALT [Catalytic activity/Vol] 36 U/L High 0 - 34 U/L [place] Comment on above: The ALT test is perf ormed by an updated assay method. Please note that the reference intervals have been changed and are now sex specific. Anion gap [Moles/Vol] 9 mmol/L [place] AST [Catalytic activity/Vol] 46 U/L 15 - 46 U/L [place] Bilirubin Ql (U) 0.5 mg/dL 0.2 - 1.3 mg/dL [place] Calcium [Mass/Vol] 8.1 mg/dL Low 8.4 - 10. 4 mg/dL [place] Chloride [Moles/Vol] 103 mmol/L 98 - 10 7 mmol/L [place] CO2 [Moles/Vol] 29 mmol/L 22 - 30 mmol/L [place] Creatinine [Mass/Vol] 0.5 mg/dL Low 0.52 - 1.25 mg/dL [place] EGFR IF NonAfrican [place] >90.0 >60 mL/min [place] Comment on above: CORRECTED RESULT...P revious above value was >60.0, verified on 10/11/19 at 05:39 by [facility] . KDIGO guidelines provide the following GFR categories: Stage GFR(ml/min/1.73 m2) Terms G1 >=90 Normal or high G2 60-89 Mildly decreased* G3a 45-59 Mildly to moderately decreased G3b 30-44 Moderately to severely decreased G4 15-29 Severely decreased G5 <15 Kidney failure *Relative to young adult level. In the absence of evidence of kidney damage, neither GFR category G1 nor G2 fulfill the criteria for CKD. The CKD-EPI equation is validated in individuals 18 years of age and older. Currently the best equation for estimating glomerular filtration rate (GFR) from serum creatinine in children is the Bedside Rosales equation. It is less accurate in patients with extremes of muscle mass, restriction of dietary protein, ingestion of creatine, extra-renal metabolism of creatinine, or treatment with medications that affect renal tubular creatinine secretion. GFR/1.73 sq M predicted among blacks MDRD (S/P/Bld) [Vol rate/Area] mL/min/{1.73_m2} >60 mL/min [place] Comment on above: CORRECTED RESULT...P revious above value was >60.0, verified on 10/11/19 at 05:39 by [facility] Glucose [Mass/Vol] 144 mg/dL High 70 - 100 mg/dL [place] Interpretation and review of laboratory results Abnormal [place] Potassium [Moles/Vol] 3.7 mmol/L 3.5 - 5.1 mmol/L [place] Protein [Mass/Vol] 6.5 g/dL 6.3 - 8.2 g/dL [place] Sodium [Moles/Vol] 140 mmol/L 135 - 145 mmol/L [place] Urea nitrogen [Mass/Vol] 16 mg/dL 7 - 20 mg/d L [place] Magnesiumon 10-11-2019 Magnesium [Mass/Vol] 1.9 mg/dL 1.6 - 2 .3 mg/dL [place] Otheron 10-11-2019 Test Performed by [facility] [employer] [facility], [address] [place], [place] [address] [place] POCT Arterialon 10-11-2019 Base Excess, Arterial 3.4 mmol/L High -3 - 3 mmol/L [place] HCO3, Arterial 28.2 mmol/L High 21 - 25 mmol/L [place] Interpretation and review of laboratory results Abnormal [place] Oxygen saturation in Blood 95.8 % 95 - 100 % [place] pCO2, Arterial 43.1 mm[Hg] 35 - 45 mm[Hg] [place] pH, Arterial 7.424 [place] pO2, Arterial 79.2 mm[Hg] Low 80 - 100 mm[Hg] [place] Sodium [Moles/Vol] 50 mmol/L [place] Comment on above: Performed by [facility] ID : [id number] [place], [place] TCO2, Arterial 29.5 mmol/L High 23 - 27 mmol/L [place] Test Performed by [facility], [facility], [place], [place] [address] [place] Phosphoruson 10-11-2019 Phosphate [Mass/Vol] 3.0 mg/dL 2.5 - 4 .5 mg/dL [place] XR CHEST PORTABLEon 10-11-19 20 Patient Name: CHARILE NGUYEN ---Diagnostic Radiology--- Exam Date/Time 10/11/2019 05:32:04 EDT Exam CR Chest Portable Ordering Physician CLINTON DELEON Accession Number [id number] CPT4 Codes 64177 () Reason For Exam resp failure/ pneumonia/ effusion/ on vent Report PORTABLE CHEST: INDICATION: Respiratory failure COMPARISON: 10/10/2019 Obtained at 0500 hours. A single portable AP radiograph of the chest was obtained. The heart is normal in size. The mediastinal silhouette is normal. There is pulmonary vascular congestion with bibasal infiltrates. Small bilateral effusions are present. There is biapical pleural thickening. Arthritic changes of the spine and shoulders are present. The ET tube and NG tube are unchanged. A right internal jugular central venous catheter is present with the tip overlying the superior vena cava. IMPRESSION: Stable appearance of the chest with pulmonary vascular congestion, bibasal infiltrates and effusions. Report Dictated on Workstation: [id number] --- Final --- Dictating Physician: DO DICKEY ALFRED Signed Date and Time: 10/11/2019 5:01 am Signed by: DO DICKEY ALFRED Transcribed Date and Time: 10/11/2019 5:32 [place], [facility] Incoming Radiology Results From [facility] - 10/11/2019 5:32 AM EDT Patient Name: CHARLIE NGUYEN ---Diagnostic Radiology--- Exam Date/Time 10/11/2019 05:32:04 EDT Exam CR Chest Portable Ordering Physician CLINTON DELEON Accession Number [id number] CPT4 Codes 09326 () Reason For Exam resp failure/ pneumonia/ effusion/ on vent Report PORTABLE CHEST: INDICATION: Respiratory failure COMPARISON: 10/10/2019 Obtained at 0500 hours. A single portable AP radiograph of the chest was obtained. The heart is normal in size. The mediastinal silhouette is normal. There is pulmonary vascular congestion with bibasal infiltrates. Small bilateral effusions are present. There is biapical pleural thickening. Arthritic changes of the spine and shoulders are present. The ET tube and NG tube are unchanged. A right internal jugular central venous catheter is present with the tip overlying the superior vena cava. IMPRESSION: Stable appearance of the chest with pulmonary vascular congestion, bibasal infiltrates and effusions. Report Dictated on Workstation: [id number] --- Final --- Dictating Physician: DO DICKEY ALFRED Signed Date and Time: 10/11/2019 5:01 am Signed by: DO DICKEY ALFRED Transcribed Date and Time: 10/11/2019 5:32 [place] CBC Auto Differentialon 09-29 Absolute Baso # 0.0 10*3/uL 0 - 0.2 10*3/uL [place] Absolute Neut # 7.1 10*3/uL High 1.8 - 7 10*3/uL [place] Basophils/100 WBC (Bld) 0.3 % 0 - 2 % [place] Eosinophils (Bld) [#/Vol] 0.0 10*3/uL 0 - 0.5 10*3/uL [place] Eosinophils/100 WBC (Bld) 0.3 % Low 1 - 6 % [place] Erythrocyte distribution width (RBC) [Ratio] 15.4 % High 11.5 - 14.5 % [place] Granulocytes/100 WBC (Bld) 77.3 % 40 - 80 % [place] Hematocrit (Bld) [Volume fraction] 29.0 % Low 35 - 47 % [place] Hemoglobin (Bld) [Mass/Vol] 9.7 g/dL Low 11.7 - 16 g/dL [place] Interpretation and review of laboratory results Abnormal [place] Lymphocytes (Bld) [#/Vol] 1.0 10*3/uL 1 - 4.3 10*3/uL [place] Lymphocytes/100 WBC (Bld) 11.4 % Low 20 - 40 % [place] MCH (RBC) [Entitic mass] 32.1 pg 26 - 34 pg [place] MCHC (RBC) [Mass/Vol] 33.2 % 32 - 36 % [place] MCV (RBC) [Entitic vol] 96.6 fL 79 - 98 fL [place], [place] Monocytes (Bld) [#/Vol] 1.0 10*3/uL High 0 - 0.8 10*3/uL [place] Monocytes/100 WBC (Bld) 10.7 % High 2 - 10 % [place] Platelet mean volume (Bld) [Entitic vol] 7.9 fL 7.4 - 10.4 fL [place] Platelets (Bld) [#/Vol] 380 10*3/uL 140 - 440 10*3/uL [place] RBC (Bld) [#/Vol] 3.01 10*6/uL Low 3.8 - 5.2 10*6/uL [place] WBC (Bld) [#/Vol] 9.2 10*3/uL 3.6 - 10.7 10*3/uL [place] Test Performed by [facility], [address], [place], [place] [id number] [place] [address] Comprehensive Metabolic Pane rfaiq 10-10-2019 Albumin [Mass/Vol] 3.2 g/dL Low 3.5 - 5 g/dL [place] ALP [Catalytic activity/Vol] 177 U/L High 38 - 126 U/L [place] ALT [Catalytic activity/Vol] 34 U/L 0 - 34 U/L [place] Comment on above: The ALT test is perf ormed by an updated assay method. Please note that the reference intervals have been changed and are now sex specific. Anion gap [Moles/Vol] 8 mmol/L [place] AST [Catalytic activity/Vol] 39 U/L 15 - 46 U/L [place] Bilirubin Ql (U) 0.8 mg/dL 0.2 - 1.3 mg/dL [place] Calcium [Mass/Vol] 7.8 mg/dL Low 8.4 - 10. 4 mg/dL [place] Chloride [Moles/Vol] 103 mmol/L 98 - 10 7 mmol/L [place] CO2 [Moles/Vol] 29 mmol/L 22 - 30 mmol/L [place] Creatinine [Mass/Vol] 0.56 mg/dL 0.52 - 1.25 mg/dL [place] EGFR IF NonAfrican [place] >60.0 >60 mL/min [place] Comment on above: Source- MDRD equatio n with creatinine calibration to IDMS(NKDEP) eGFR not recommended for drug dose adjustment GFR/1.73 sq M predicted among blacks MDRD (S/P/Bld) [Vol rate/Area] mL/min/{1.73_m2} >60 mL/min [place] Glucose [Mass/Vol] 126 mg/dL High 70 - 100 mg/dL [place] Interpretation and review of laboratory results Abnormal [place] Potassium [Moles/Vol] 3.7 mmol/L 3.5 - 5.1 mmol/L [place] Protein [Mass/Vol] 6.6 g/dL 6.3 - 8.2 g/dL [place] Sodium [Moles/Vol] 140 mmol/L 135 - 145 mmol/L [place] Urea nitrogen [Mass/Vol] 15 mg/dL 7 - 20 mg/d L [place] EKG 12 Leadon 10-10-2019 [place], [facility] Incoming Cardiology [facility] - 10/10/2019 2:02 PM EDT [facility] Test Date: 2019-10-08 Pat Name: Charlie Nguyen Department: [facility] Room: 232 Gender: F Churn Tender: JOVI : 1955 Requested By: NICA ISABELSCH Order Number: [id number] Reading MD: Edmar Atkinson Measurements Intervals [place] Rate: 109 P: 19 WA: 180 QRS: 10 QRSD: 100 T: 45 QT: 324 QTc: 437 Interpretive Statements SINUS TACHYCARDIA VENTRICULAR PREMATURE COMPLEX CONSIDER ANTEROSEPTAL INFARCT Electrical alternans, consider pericardial effusion Electronically Signed On 10-10-2019 14:01:[address] [facility] Test Date: 2019-10-08 Pat Name: Charlie Nguyen Department: [facility] Room: 232 Gender: F Churn Tender: JOVI : 1955 Requested By: NICA CognioSCH Order Number: [id number] Reading MD: Edmar Atkinson Measurements Intervals [place] Rate: 109 P: 19 WA: 180 QRS: 10 QRSD: 100 T: 45 QT: 324 QTc: 437 Interpretive Statements SINUS TACHYCARDIA VENTRICULAR PREMATURE COMPLEX CONSIDER ANTEROSEPTAL INFARCT Electrical alternans, consider pericardial effusion Electronically Signed On 10-10-2019 14:01:[address] [facility] Test Date: 2019-10-08 Pat Name: Charlie Nguyen Department: [facility] Room: 232 Gender: F Churn Tender: OTONIEL : 1955 Requested By: NICA BOTSCH Order Number: [id number] Reading MD: Edmar Atkinson Measurements Intervals [place] Rate: 72 P: 39 WA: 184 QRS: 7 QRSD: 108 T: 19 QT: 412 QTc: 451 Interpretive Statements SINUS RHYTHM BORDERLINE INTRAVENTRICULAR CONDUCTION DELAY Compared to ECG 10/07/2019 21:02:04 No significant changes Electronically Signed On 10-10-2019 12:46:05 EDT by Baron[place], [facility] Incoming Cardiology Results From [facility] - 10/10/2019 12:47 PM EDT [facility] Test Date: 2019-10-08 Pat Name: Charlie Nguyen Department: [facility] Room: 232 Gender: F Churn Tender: OTONIEL : 1955 Requested By: NICA SAL Order Number: [id number] Reading MD: Edmar Atkinson Measurements Intervals [place] Rate: 72 P: 39 WA: 184 QRS: 7 QRSD: 108 T: 19 QT: 412 QTc: 451 Interpretive Statements SINUS RHYTHM BORDERLINE INTRAVENTRICULAR CONDUCTION DELAY Compared to ECG 10/07/2019 21:02:04 No significant changes Electronically Signed On 10-10-2019 12:46:05 EDT by O[place] Gram Stainon 10-10-2019 INR Coag (Bld) [Relative time] Many polymorphonuclear cells/lpf. Few epithelial cells/lpf. Rare gram positive cocci in clusters. Rare gram positive bacilli. [place] Test Performed by [facility], [address] [place] [id number] Specimen Source Comment:Endotracheal [place] Magnesiumon 10-10-2019 Magnesium [Mass/Vol] 1.9 mg/dL 1.6 - 2 .3 mg/dL [place] Otheron 10-10-2019 Test Performed by [facility], [address] [place], [place] [address] [place] POCT Arterialon 10-10-2019 Base Excess, Arterial 5.1 mmol/L High -3 - 3 mmol/L [place] HCO3, Arterial 29.6 mmol/L High 21 - 25 mmol/L [place] Interpretation and review of laboratory results Abnormal [place] Oxygen saturation in Blood 95.5 % 95 - 100 % [place] pCO2, Arterial 42.7 mm[Hg] 35 - 45 mm[Hg] [place] pH, Arterial 7.449 [place] pO2, Arterial 75.7 mm[Hg] Low 80 - 100 mm[Hg] [place] Sodium [Moles/Vol] 50 mmol/L [place] Comment on above: Performed by [facility] ID : [id number] [place], [place] TCO2, Arterial 30.9 mmol/L High 23 - 27 mmol/L [place] Test Performed by [facility], [address], [place], [place] [address] [place] Phosphoruson 10-10-2019 Phosphate [Mass/Vol] 3.8 mg/dL 2.5 - 4 .5 mg/dL [place] XR CHEST PORTABLEon 10-10-19 20 [place], [facility] Incoming Radiology Results From [facility] - 10/10/2019 3:36 PM EDT Patient Name: CHARLIE NGUYEN ---Diagnostic Radiology--- Exam Date/Time 10/10/2019 13:50:00 EDT Exam CR Chest Portable Ordering Physician CLINTON DELEON Accession Number [id number] CPT4 Codes 19098 () Reason For Exam resp failure/ pneumonia/ effusion/ on vent Report Indication: Respiratory failure. A frontal view of the chest timed 1335 is compared to the study dated 10/09/2019. Again identified is an endotracheal tube, an enteric tube and right-sided central line. No sizable pneumothorax is seen. The heart is unchanged in size. The mediastinum is unchanged in appearance. There is mild pulmonary vascular congestion. There are bilateral lower lung infiltrates and bilateral pleural effusions. These findings have mildly progressed. Report Dictated on --- Final --- Dictating Physician: DO VENTURA ANTHONY Signed Date and Time: 10/10/2019 3:34 pm Signed by: DO VENTURA ANTHONY Transcribed Date and Time: 10/10/2019 3:36 [place] Patient Name: CHARLIE NGUYEN ---Diagnostic Radiology--- Exam Date/Time 10/10/2019 13:50:00 EDT Exam CR Chest Portable Ordering Physician CLINTON DELEON Accession Number [id number] CPT4 Codes 60843 () Reason For Exam resp failure/ pneumonia/ effusion/ on vent Report Indication: Respiratory failure. A frontal view of the chest timed 1335 is compared to the study dated 10/09/2019. Again identified is an endotracheal tube, an enteric tube and right-sided central line. No sizable pneumothorax is seen. The heart is unchanged in size. The mediastinum is unchanged in appearance. There is mild pulmonary vascular congestion. There are bilateral lower lung infiltrates and bilateral pleural effusions. These findings have mildly progressed. Report Dictated on --- Final --- Dictating Physician: DO VENTURA ANTHONY Signed Date and Time: 10/10/2019 3:34 pm Signed by: DO VENTURA ANTHONY Transcribed Date and Time: 10/10/2019 3:36 [place] Basic Metabolic Panelon 05- Anion gap [Moles/Vol] 6 mmol/L [place] Calcium [Mass/Vol] 7.9 mg/dL Low 8.4 - 10. 4 mg/dL [place] Chloride [Moles/Vol] 105 mmol/L 98 - 10 7 mmol/L [place] CO2 [Moles/Vol] 26 mmol/L 22 - 30 mmol/L [place] Creatinine [Mass/Vol] 0.54 mg/dL 0.52 - 1.25 mg/dL [place] EGFR IF NonAfrican [place] >60.0 >60 mL/min [place] Comment on above: Source- MDRD equatio n with creatinine calibration to IDNY(NKDEP) eGFR not recommended for drug dose adjustment GFR/1.73 sq M predicted among blacks MDRD (S/P/Bld) [Vol rate/Area] mL/min/{1.73_m2} >60 mL/min [place] Glucose [Mass/Vol] 122 mg/dL High 70 - 100 mg/dL [place] Interpretation and review of laboratory results Abnormal [place] Potassium [Moles/Vol] 3.5 mmol/L 3.5 - 5.1 mmol/L [place] Sodium [Moles/Vol] 137 mmol/L 135 - 145 mmol/L [place] Urea nitrogen [Mass/Vol] 15 mg/dL 7 - 20 mg/d L [place] Test Performed by [facility] [employer] [facility], [address], [place], [place] [address] [place] Anion gap [Moles/Vol] 6 mmol/L [place] Calcium [Mass/Vol] 7.8 mg/dL Low 8.4 - 10. 4 mg/dL [place] Chloride [Moles/Vol] 104 mmol/L 98 - 10 7 mmol/L [place] CO2 [Moles/Vol] 27 mmol/L 22 - 30 mmol/L [place] Creatinine [Mass/Vol] 0.54 mg/dL 0.52 - 1.25 mg/dL [place] EGFR IF NonAfrican [place] >60.0 >60 mL/min [place] Comment on above: Source- MDRD equatio n with creatinine calibration to IDMS(NKDEP) eGFR not recommended for drug dose adjustment GFR/1.73 sq M predicted among blacks MDRD (S/P/Bld) [Vol rate/Area] mL/min/{1.73_m2} >60 mL/min [place] Glucose [Mass/Vol] 124 mg/dL High 70 - 100 mg/dL [place] Interpretation and review of laboratory results Abnormal [place] Potassium [Moles/Vol] 4.0 mmol/L 3.5 - 5.1 mmol/L [place] Sodium [Moles/Vol] 137 mmol/L 135 - 145 mmol/L [place] Urea nitrogen [Mass/Vol] 14 mg/dL 7 - 20 mg/d L [place] CBC Auto Differentialon 05-1 0-2019 Absolute Baso # 0.1 10*3/uL 0 - 0.2 10*3/uL [place] Absolute Neut # 8.9 10*3/uL High 1.8 - 7 10*3/uL [place] Basophils/100 WBC (Bld) 0.6 % 0 - 2 % [place] Eosinophils (Bld) [#/Vol] 0.2 10*3/uL 0 - 0.5 10*3/uL [place] Eosinophils/100 WBC (Bld) 1.9 % 1 - 6 % [place] Erythrocyte distribution width (RBC) [Ratio] 14.8 % High 11.5 - 14.5 % [place] Granulocytes/100 WBC (Bld) 77.4 % 40 - 80 % [place] Hematocrit (Bld) [Volume fraction] 33.0 % Low 35 - 47 % [place] Hemoglobin (Bld) [Mass/Vol] 10.8 g/dL Low 11.7 - 16 g/dL [place] Interpretation and review of laboratory results Abnormal [place] Lymphocytes (Bld) [#/Vol] 1.1 10*3/uL 1 - 4.3 10*3/uL [place] Lymphocytes/100 WBC (Bld) 9.8 % Low 20 - 40 % [place] MCH (RBC) [Entitic mass] 31.5 pg 26 - 34 pg [place] MCHC (RBC) [Mass/Vol] 32.8 % 32 - 36 % [place] MCV (RBC) [Entitic vol] 96.0 fL 79 - 98 fL [place] Monocytes (Bld) [#/Vol] 1.2 10*3/uL High 0 - 0.8 10*3/uL [place] Monocytes/100 WBC (Bld) 10.3 % High 2 - 10 % [place] Platelet mean volume (Bld) [Entitic vol] 8.4 fL 7.4 - 10.4 fL [place] Platelets (Bld) [#/Vol] 346 10*3/uL 140 - 440 10*3/uL [place] RBC (Bld) [#/Vol] 3.44 10*6/uL Low 3.8 - 5.2 10*6/uL [place] WBC (Bld) [#/Vol] 11.5 10*3/uL High 3.6 - 10.7 10*3/uL [facility], [place] Test Performed by [facility], [address] [place] [address] [facility], [place] Culture, Blood 2on 0 Blood Culture, Routine No growth at 5 days. [facility], [place] Test Performed by [facility], [address] [place] [id number] Specimen Source Comment:Blood [place] Hemoglobin and Hematocrit, B loodon 10-09-2019 Hematocrit (Bld) [Volume fraction] 33.5 % Low 35 - 47 % [place] Hemoglobin (Bld) [Mass/Vol] 11.1 g/dL Low 11.7 - 16 g/dL [place] Interpretation and review of laboratory results Abnormal [place] Test Performed by [facility], [address] [place], [place] [id number] [place] [address] [place] Hematocrit (Bld) [Volume fraction] 33.2 % Low 35 - 47 % [place] Hemoglobin (Bld) [Mass/Vol] 11.0 g/dL Low 11.7 - 16 g/dL [place] Interpretation and review of laboratory results Abnormal [place] Test Performed by [facility], [address] [place], [place] [id number] [place] [address], [place] Magnesiumon 10-09-2019 Magnesium [Mass/Vol] 2.0 mg/dL 1.6 - 2 .3 mg/dL [place] Otheron 10-09-2019 Test Performed by [facility], [address] [place] [address] [facility], [place] POCT Arterialon 10-09-2019 Base Excess, Arterial 2.9 mmol/L -3 - 3 mmol/L [facility], [place] HCO3, Arterial 27.1 mmol/L High 21 - 25 mmol/L [facility], [place] Interpretation and review of laboratory results Abnormal [place] Oxygen saturation in Blood 99.1 % 95 - 100 % [place] pCO2, Arterial 39.2 mm[Hg] 35 - 45 mm[Hg] [facility], [place] pH, Arterial 7.448 [facility], [place] pO2, Arterial 128.8 mm[Hg] High 80 - 100 mm[Hg] [facility], [place] Sodium [Moles/Vol] 100 mmol/L [facility], [place] Comment on above: Performed by CLIA ID : [id number] [place], [place] TCO2, Arterial 28.3 mmol/L High 23 - 27 mmol/L [facility], [place] Test Performed by [facility], [address] [place], [place], [place] [address] [facility], [place] Base Excess, Arterial 2.8 mmol/L -3 - 3 mmol/L [facility], [place] HCO3, Arterial 26.5 mmol/L High 21 - 25 mmol/L [facility], [place] Interpretation and review of laboratory results Abnormal [place] Oxygen saturation in Blood 97.4 % 95 - 100 % [facility], [place] pCO2, Arterial 36.8 mm[Hg] 35 - 45 mm[Hg] [facility], [place] pH, Arterial 7.466 High [facility], [place] pO2, Arterial 89.3 mm[Hg] 80 - 100 mm[Hg] [facility], [place] Sodium [Moles/Vol] 40 mmol/L [facility], [place] Comment on above: Performed by CLIA ID : [id number] [place], [place] TCO2, Arterial 27.7 mmol/L High 23 - 27 mmol/L [facility], [place] Test Performed by [facility] [employer] [facility], [address] [place], [place], [place] [address] [facility], [place] Phosphoruson 10-09-2019 Phosphate [Mass/Vol] 4.3 mg/dL 2.5 - 4 .5 mg/dL [facility], [place] XR CHEST PORTABLEon 10-09-19 20 [place], [facility] Incoming Radiology Results From [facility] - 10/09/2019 3:56 PM EDT Patient Name: CHARLIE NGUYEN ---Diagnostic Radiology--- Exam Date/Time 10/09/2019 14:12:00 EDT Exam CR Chest Portable Ordering Physician DES ROMERO Accession Number [id number] CPT4 Codes 57729 () Reason For Exam intubation Report Portable semiupright AP view of the chest, 10/09/2019. Reason for examination: Respiratory insufficiency. COMPARISON: 10/08/2019. FINDINGS: Cardiac size is within normal limits. Pulmonary vasculature is mildly prominent. There is infiltrate or atelectasis in the lower lung hendrix bilaterally with probable small pleural effusions. Findings are similar to the prior study. The upper lung hendrix are largely clear. No pneumothorax is noted. An endotracheal tube is present with tip in satisfactory position. A nasogastric or orogastric tube is present. There is a right internal jugular central venous catheter. IMPRESSION: Infiltrate or atelectasis in the lower lung hendrix with pleural effusions. Aeration in the lung bases may have worsened slightly compared to the prior study. Report Dictated on --- Final --- Dictating Physician: MD CAMPOS JOE M Signed Date and Time: 10/09/2019 3:55 pm Signed by: MD CAMPOS JOE M Transcribed Date and Time: 10/09/2019 3:56 [place] Patient Name: CHARLIE NGUYEN ---Diagnostic Radiology--- Exam Date/Time 10/09/2019 14:12:00 EDT Exam CR Chest Portable Ordering Physician DES ROMERO Accession Number [id number] CPT4 Codes 78397 () Reason For Exam intubation Report Portable semiupright AP view of the chest, 10/09/2019. Reason for examination: Respiratory insufficiency. COMPARISON: 10/08/2019. FINDINGS: Cardiac size is within normal limits. Pulmonary vasculature is mildly prominent. There is infiltrate or atelectasis in the lower lung hendrix bilaterally with probable small pleural effusions. Findings are similar to the prior study. The upper lung hendrix are largely clear. No pneumothorax is noted. An endotracheal tube is present with tip in satisfactory position. A nasogastric or orogastric tube is present. There is a right internal jugular central venous catheter. IMPRESSION: Infiltrate or atelectasis in the lower lung hendrix with pleural effusions. Aeration in the lung bases may have worsened slightly compared to the prior study. Report Dictated on --- Final --- Dictating Physician: MD CAMPOS JOE M Signed Date and Time: 10/09/2019 3:55 pm Signed by: MD CAMPOS JOE M Transcribed Date and Time: 10/09/2019 3:56 [place] Basic Metabolic Panelon 05-0 Anion gap [Moles/Vol] 8 mmol/L [facility], [place] Calcium [Mass/Vol] 7.7 mg/dL Low 8.4 - 10. 4 mg/dL [place] Chloride [Moles/Vol] 103 mmol/L 98 - 10 7 mmol/L [place] CO2 [Moles/Vol] 25 mmol/L 22 - 30 mmol/L [place] Creatinine [Mass/Vol] 0.54 mg/dL 0.52 - 1.25 mg/dL [place] EGFR IF NonAfrican [place] >60.0 >60 mL/min [place] Comment on above: Source- MDRD equatio n with creatinine calibration to IDMS(NKDEP) eGFR not recommended for drug dose adjustment GFR/1.73 sq M predicted among blacks MDRD (S/P/Bld) [Vol rate/Area] mL/min/{1.73_m2} >60 mL/min [place] Glucose [Mass/Vol] 103 mg/dL High 70 - 100 mg/dL [place] Interpretation and review of laboratory results Abnormal [place] Potassium [Moles/Vol] 3.2 mmol/L Low 3.5 - 5.1 mmol/L [place] Sodium [Moles/Vol] 136 mmol/L 135 - 145 mmol/L [place] Urea nitrogen [Mass/Vol] 14 mg/dL 7 - 20 mg/d L [place] Test Performed by [facility], [address], [place], [place] [address] [place] Anion gap [Moles/Vol] 5 mmol/L [facility], [place] Calcium [Mass/Vol] 7.5 mg/dL Low 8.4 - 10. 4 mg/dL [place] Chloride [Moles/Vol] 103 mmol/L 98 - 10 7 mmol/L [place] CO2 [Moles/Vol] 26 mmol/L 22 - 30 mmol/L [place] Creatinine [Mass/Vol] 0.53 mg/dL 0.52 - 1.25 mg/dL [place] EGFR IF NonAfrican [place] >60.0 >60 mL/min [place] Comment on above: Source- MDRD equatio n with creatinine calibration to IDMS(NKDEP) eGFR not recommended for drug dose adjustment GFR/1.73 sq M predicted among blacks MDRD (S/P/Bld) [Vol rate/Area] mL/min/{1.73_m2} >60 mL/min [place] Glucose [Mass/Vol] 125 mg/dL High 70 - 100 mg/dL [place] Interpretation and review of laboratory results Abnormal [place] Potassium [Moles/Vol] 3.5 mmol/L 3.5 - 5.1 mmol/L [place] Sodium [Moles/Vol] 134 mmol/L Low 135 - 145 mmol/L [place] Urea nitrogen [Mass/Vol] 15 mg/dL 7 - 20 mg/d L [place] Test Performed by [facility], [address] [place], [place] [address] [place] Anion gap [Moles/Vol] 8 mmol/L [place] Calcium [Mass/Vol] 7.5 mg/dL Low 8.4 - 10. 4 mg/dL [place] Chloride [Moles/Vol] 102 mmol/L 98 - 10 7 mmol/L [place] CO2 [Moles/Vol] 26 mmol/L 22 - 30 mmol/L [place] Creatinine [Mass/Vol] 0.5 mg/dL Low 0.52 - 1.25 mg/dL [place] EGFR IF NonAfrican [place] >60.0 >60 mL/min [place] Comment on above: Source- MDRD equatio n with creatinine calibration to IDMS(NKDEP) eGFR not recommended for drug dose adjustment GFR/1.73 sq M predicted among blacks MDRD (S/P/Bld) [Vol rate/Area] mL/min/{1.73_m2} >60 mL/min [place] Glucose [Mass/Vol] 113 mg/dL High 70 - 100 mg/dL [place] Interpretation and review of laboratory results Abnormal [place] Potassium [Moles/Vol] 3.2 mmol/L Low 3.5 - 5.1 mmol/L [place] Sodium [Moles/Vol] 135 mmol/L 135 - 145 mmol/L [place] Urea nitrogen [Mass/Vol] 16 mg/dL 7 - 20 mg/d L [place] Test Performed by [facility] [employer] [facility], [address] [place], [place] [id number] [place] [address] CBC Auto Differentialon 05-0 Absolute Baso # 0.1 10*3/uL 0 - 0.2 10*3/uL [place] Absolute Neut # 8.4 10*3/uL High 1.8 - 7 10*3/uL [place] Basophils/100 WBC (Bld) 0.7 % 0 - 2 % [place] Eosinophils (Bld) [#/Vol] 0.2 10*3/uL 0 - 0.5 10*3/uL [place] Eosinophils/100 WBC (Bld) 1.8 % 1 - 6 % [place] Erythrocyte distribution width (RBC) [Ratio] 15.0 % High 11.5 - 14.5 % [place] Granulocytes/100 WBC (Bld) 75.2 % 40 - 80 % [place] Hematocrit (Bld) [Volume fraction] 27.1 % Low 35 - 47 % [place] Hemoglobin (Bld) [Mass/Vol] 8.8 g/dL Low 11.7 - 16 g/dL [place] Interpretation and review of laboratory results Abnormal [place] Lymphocytes (Bld) [#/Vol] 1.2 10*3/uL 1 - 4.3 10*3/uL [place] Lymphocytes/100 WBC (Bld) 11.1 % Low 20 - 40 % [place] MCH (RBC) [Entitic mass] 31.6 pg 26 - 34 pg [place] MCHC (RBC) [Mass/Vol] 32.5 % 32 - 36 % [place] MCV (RBC) [Entitic vol] 97.3 fL 79 - 98 fL [place] Monocytes (Bld) [#/Vol] 1.2 10*3/uL High 0 - 0.8 10*3/uL [place] Monocytes/100 WBC (Bld) 11.2 % High 2 - 10 % [place] Platelet mean volume (Bld) [Entitic vol] 8.7 fL 7.4 - 10.4 fL [place] Platelets (Bld) [#/Vol] 228 10*3/uL 140 - 440 10*3/uL [place] RBC (Bld) [#/Vol] 2.79 10*6/uL Low 3.8 - 5.2 10*6/uL [place] WBC (Bld) [#/Vol] 11.1 10*3/uL High 3.6 - 10.7 10*3/uL [place] Test Performed by [address] [facility], [address] [place], [place] [address] [place] Culture, Blood 1on 0 Blood Culture, Routine No growth at 5 days. [place] Test Performed by [address] [facility], [address] [place] [address] Specimen Source Comment:Blood [place] Culture, Respiratoryon 10-07 Interpretation and review of laboratory results Abnormal [place] Respiratory Culture Corynebacterium striatum Abnormal [place] Respiratory Culture Many Possible identification For identification and/or sensitivity, refer to culture collected on: 10/05/2019 at 0837, ([id number] ). [place] Respiratory Culture Staphylococcus aureus Abnormal [place] Respiratory Culture Moderate For identification and/or sensitivity, refer to culture collected on: 10/05/2019 at 0837 ([id number]) [facility] [place] [place] Test Performed by [facility], [address] [place] [id number] Specimen Source Comment:BAL- Right [place] Interpretation and review of laboratory results Abnormal [place] Respiratory Culture Many Possible identification [place] Respiratory Culture Corynebacterium striatum Abnormal [place] Respiratory Culture Many Negative for PBP2a (MSSA). [place] Respiratory Culture Staphylococcus aureus Abnormal [place] Respiratory Culture Rare normal respiratory naomi. Abnormal [place] Test Performed by [facility], [address] [place] [id number] Specimen Source Comment:Sputum [place] ECHO Complete 2D W Doppler W Coloron 10-08-2019 Left ventricular Ejection fraction 61 [place] LVEF MODALITY ECHO [place], [facility] Incoming Cardiology Results From [facility] - 10/08/2019 1:21 PM EDT TRANSTHORACIC ECHOCARDIOGRAM PATIENT: Charlie Nguyen STUDY DATE: 10/08/2019 : 1955 AGE: 64 HT/WT: 175.3 cm (69 122.5 kg in) (269.4 lb) GENDER: F BP: 116 / 65 LOCATION: [facility] PATIENT Inpatient [facility] STATUS: *ORDERING PHYSICIAN: * Rajendra Kim *READING PHYSICIAN: * [place], *ZOO KEEPER: * MD LIZETTE Hobbs -------- INDICATIONS: Hypoxia. -------- CONCLUSIONS SUMMARY: 1. Procedure narrative: Image quality was poor. The study was technically limited due to body habitus, mechanical ventilation, respiratory interference, and supine position. Intravenous imaging enhancement (Definity) was administered to opacify the chamber. Definity lot #: [id number]. 2. Left ventricle: Systolic function is normal by the biplane method of disks. The estimated ejection fraction is 61%. Regional wall motion abnormalities cannot be excluded. 3. No significant valve disease. RECOMMENDATIONS: Due to poor image quality acurate assessment of wall motion and valvular function was not possible. -------- STUDY DATA: Complete transthoracic echocardiogram. Procedure: Image quality was poor. The study was technically limited due to body habitus, mechanical ventilation, respiratory interference, and supine position. Intravenous imaging enhancement (Definity) was administered to opacify the chamber. Definity lot #: [id number]. M-mode, complete 2D, complete spectral Doppler, and color flow Doppler images were acquired and archived for permanent storage and are available for subsequent review. Study status: Routine. Patient status: Inpatient. ECG RHYTHM: NSR -------- FINDINGS LEFT VENTRICLE: The cavity size is normal. Wall thickness is normal. Systolic function is normal by the biplane method of disks. The estimated ejection fraction is 61%. Regional wall motion abnormalities cannot be excluded. RIGHT VENTRICLE: The cavity size is normal. Systolic function is normal. Right ventricular systolic pressure is within the normal range. VENTRICULAR SEPTUM: There is no evidence of a ventricular septal defect. LEFT ATRIUM: Not well visualized. The atrium is normal in size. RIGHT ATRIUM: Not well visualized. The atrium is normal in size. ATRIAL SEPTUM: Not well visualized. Color Doppler shows no shunt. MITRAL VALVE: Not well visualized. Structurally normal valve. Doppler: There is no regurgitation. AORTIC VALVE: Not well visualized. Structurally normal valve. Trileaflet. Doppler: There is no regurgitation. The peak systolic gradient is 8 mm Hg. The peak systolic velocity is 1.4 m/sec. TRICUSPID VALVE: Not well visualized. Structurally normal valve. Doppler: There is trivial, less than 1+ regurgitation. PULMONIC VALVE: Not visualized. Doppler: There is trivial, less than 1+ regurgitation. AORTA: The aorta is normal. PULMONARY ARTERY: Main pulmonary artery: Normal. PERICARDIUM: Prominent epicardial fat is present. There is no pericardial effusion. SYSTEMIC VEINS: Inferior vena cava: The vessel is normal. The IVC collapses by greater than 50% with inspiration. Hepatic veins: The flow pattern is normal. -------- Measurements Value Reference Aortic root ID 3.3 cm <4.5 Aortic root ID, STJ, ED (H) 3.3 cm 2.0 - 3.2 Aortic root ID/bsa, STJ, ED 1.3 cm/m^2 1.1 - 1.9 IVC Value Reference ID 1.7 cm --------- Left ventricle Value Reference LV ID, ED 4.7 cm 3.8 - 5.2 LV ID, ES 3.1 cm 2.2 - 3.5 LV ID/bsa, ED (L) 1.9 cm/m^2 2.3 - 3.1 LV ID/bsa, ES (L) 1.2 cm/m^2 1.3 - 2.1 LV PW thickness, ED (H) 1.3 cm 0.6 - 0.9 LV PW/LV ID ratio, ED 0.27 --------- LV wall mass (H) 226 g 66 - 150 LV wall mass/bsa (H) 90 g/m^2 44 - 88 Stroke volume/bsa, 1-p A2C 30 ml/m^2 --------- LV end-diastolic volume, 1-p A4C 104 ml 48 - 140 LV end-systolic volume, 1-p A4C 39 ml 12 - 60 LV end-diastolic volume, 2-p (H) 117 ml 46 - 106 LV end-systolic volume, 2-p (H) 46 ml 14 - 42 LV ejection fraction, 2-p 61 % 54 - 74 LV E/e', lateral 7.5 --------- LV E/e', medial 13.6 --------- LV E/e', average 9.6 --------- Ventricular septum Value Reference IVS thickness, ED (H) 1.2 cm 0.6 - 0.9 LVOT Value Reference LVOT mean velocity, S 0.5 m/sec --------- LVOT peak gradient, S 3 mm Hg --------- Aortic valve Value Reference Aortic valve peak velocity, S 1.4 m/sec --------- Aortic peak gradient, S 8 mm Hg --------- Left atrium Value Reference LA volume/bsa, ES, 2-p 20 ml/m^2 16 - 34 Mitral valve Value Reference Mitral E-wave peak velocity 0.6 m/sec --------- Mitral A-wave peak velocity 0.7 m/sec --------- Mitral deceleration time 259 ms --------- Mitral E/A ratio, peak 0.8 --------- Right atrium Value Reference RA area, ES, A4C 16 cm^2 10 - 18 Right ventricle Value Reference RV ID, minor axis, ED, A4C base 4.1 cm 2.5 - 4.1 RV ID, minor axis, ED, A4C mid 3.5 cm 1.9 - 3.5 TAPSE, 2D 1.9 cm 1.7 - 3.1 Legend: (L) and (H) sulaiman values outside specified reference range. Electronically signed by Edmar Atkinson MD 10/08/2019 13:21 Prior Signatures: [place] TRANSTHORACIC ECHOCARDIOGRAM PATIENT: Charlie Nguyen STUDY DATE: 10/08/2019 : 1955 AGE: 64 HT/WT: 175.3 cm (69 122.5 kg in) (269.4 lb) GENDER: F BP: 116 / 65 LOCATION: [facility] PATIENT Inpatient [facility] STATUS: *ORDERING PHYSICIAN: * Rajendra Kim *READING PHYSICIAN: * [place], *ZOO KEEPER: * Brandi Hyatt MD [facility] -------- INDICATIONS: Hypoxia. -------- CONCLUSIONS SUMMARY: 1. Procedure narrative: Image quality was poor. The study was technically limited due to body habitus, mechanical ventilation, respiratory interference, and supine position. Intravenous imaging enhancement (Definity) was administered to opacify the chamber. Definity lot #: [id number]. 2. Left ventricle: Systolic function is normal by the biplane method of disks. The estimated ejection fraction is 61%. Regional wall motion abnormalities cannot be excluded. 3. No significant valve disease. RECOMMENDATIONS: Due to poor image quality acurate assessment of wall motion and valvular function was not possible. -------- STUDY DATA: Complete transthoracic echocardiogram. Procedure: Image quality was poor. The study was technically limited due to body habitus, mechanical ventilation, respiratory interference, and supine position. Intravenous imaging enhancement (Definity) was administered to opacify the chamber. Definity lot #: [id number]. M-mode, complete 2D, complete spectral Doppler, and color flow Doppler images were acquired and archived for permanent storage and are available for subsequent review. Study status: Routine. Patient status: Inpatient. ECG RHYTHM: NSR -------- FINDINGS LEFT VENTRICLE: The cavity size is normal. Wall thickness is normal. Systolic function is normal by the biplane method of disks. The estimated ejection fraction is 61%. Regional wall motion abnormalities cannot be excluded. RIGHT VENTRICLE: The cavity size is normal. Systolic function is normal. Right ventricular systolic pressure is within the normal range. VENTRICULAR SEPTUM: There is no evidence of a ventricular septal defect. LEFT ATRIUM: Not well visualized. The atrium is normal in size. RIGHT ATRIUM: Not well visualized. The atrium is normal in size. ATRIAL SEPTUM: Not well visualized. Color Doppler shows no shunt. MITRAL VALVE: Not well visualized. Structurally normal valve. Doppler: There is no regurgitation. AORTIC VALVE: Not well visualized. Structurally normal valve. Trileaflet. Doppler: There is no regurgitation. The peak systolic gradient is 8 mm Hg. The peak systolic velocity is 1.4 m/sec. TRICUSPID VALVE: Not well visualized. Structurally normal valve. Doppler: There is trivial, less than 1+ regurgitation. PULMONIC VALVE: Not visualized. Doppler: There is trivial, less than 1+ regurgitation. AORTA: The aorta is normal. PULMONARY ARTERY: Main pulmonary artery: Normal. PERICARDIUM: Prominent epicardial fat is present. There is no pericardial effusion. SYSTEMIC VEINS: Inferior vena cava: The vessel is normal. The IVC collapses by greater than 50% with inspiration. Hepatic veins: The flow pattern is normal. -------- Measurements Value Reference Aortic root ID 3.3 cm <4.5 Aortic root ID, STJ, ED (H) 3.3 cm 2.0 - 3.2 Aortic root ID/bsa, STJ, ED 1.3 cm/m^2 1.1 - 1.9 IVC Value Reference ID 1.7 cm --------- Left ventricle Value Reference LV ID, ED 4.7 cm 3.8 - 5.2 LV ID, ES 3.1 cm 2.2 - 3.5 LV ID/bsa, ED (L) 1.9 cm/m^2 2.3 - 3.1 LV ID/bsa, ES (L) 1.2 cm/m^2 1.3 - 2.1 LV PW thickness, ED (H) 1.3 cm 0.6 - 0.9 LV PW/LV ID ratio, ED 0.27 --------- LV wall mass (H) 226 g 66 - 150 LV wall mass/bsa (H) 90 g/m^2 44 - 88 Stroke volume/bsa, 1-p A2C 30 ml/m^2 --------- LV end-diastolic volume, 1-p A4C 104 ml 48 - 140 LV end-systolic volume, 1-p A4C 39 ml 12 - 60 LV end-diastolic volume, 2-p (H) 117 ml 46 - 106 LV end-systolic volume, 2-p (H) 46 ml 14 - 42 LV ejection fraction, 2-p 61 % 54 - 74 LV E/e', lateral 7.5 --------- LV E/e', medial 13.6 --------- LV E/e', average 9.6 --------- Ventricular septum Value Reference IVS thickness, ED (H) 1.2 cm 0.6 - 0.9 LVOT Value Reference LVOT mean velocity, S 0.5 m/sec --------- LVOT peak gradient, S 3 mm Hg --------- Aortic valve Value Reference Aortic valve peak velocity, S 1.4 m/sec --------- Aortic peak gradient, S 8 mm Hg --------- Left atrium Value Reference LA volume/bsa, ES, 2-p 20 ml/m^2 16 - 34 Mitral valve Value Reference Mitral E-wave peak velocity 0.6 m/sec --------- Mitral A-wave peak velocity 0.7 m/sec --------- Mitral deceleration time 259 ms --------- Mitral E/A ratio, peak 0.8 --------- Right atrium Value Reference RA area, ES, A4C 16 cm^2 10 - 18 Right ventricle Value Reference RV ID, minor axis, ED, A4C base 4.1 cm 2.5 - 4.1 RV ID, minor axis, ED, A4C mid 3.5 cm 1.9 - 3.5 TAPSE, 2D 1.9 cm 1.7 - 3.1 Legend: (L) and (H) sulaiman values outside specified reference range. Electronically signed by Edmar Atkinson MD 10/08/2019 13:21 Prior Signatures: [employer] EKG 12 Leadon 10-08-2019 [facility] Test Date: 2019-10-07 Pat Name: Charlie Nguyen Department: 2[facility] Room: 232 Gender: F Churn Tender: GISELLE : 1955 Requested By: NICA SAL Order Number: [id number] Reading MD: Denver Lantigua Measurements Intervals [place] Rate: 72 P: 35 WA: 180 QRS: 2 QRSD: 112 T: 17 QT: 420 QTc: 460 Interpretive Statements SINUS RHYTHM Compared to ECG 10/07/2019 07:55:13 No significant changes Electronically Signed On 10-08-2019 13:12:36 EDT by Denver Lantigua [employer] Rodolfo, [facility] Incoming Cardiology Results From Smith/Luisany - 10/08/2019 1:13 PM EDT [facility] Test Date: 2019-10-07 Pat Name: Charlie Nguyen Department: [facility] Room: 232 Gender: F Churn Tender: GISELLE : 1955 Requested By: NICA SAL Order Number: [id number] Reading : Denver Lantigua Measurements Intervals [place] Rate: 72 P: 35 WA: 180 QRS: 2 QRSD: 112 T: 17 QT: 420 QTc: 460 Interpretive Statements SINUS RHYTHM Compared to ECG 10/07/2019 07:55:13 No significant changes Electronically Signed On 10-08-2019 13:12:36 EDT by Denver Lantigua [facility] [employer] [place] Hemoglobin and Hematocrit, B loodon 10-08-2019 Hematocrit (Bld) [Volume fraction] 34.3 % Low 35 - 47 % [facility] Hemoglobin (Bld) [Mass/Vol] 11.4 g/dL Low 11.7 - 16 g/dL [facility] [employer] [place] Interpretation and review of laboratory results Abnormal [facility] [place], [place] Test Performed by [facility], [address] [place], [place] [id number] [place] [address] [employer] [place] Hematocrit (Bld) [Volume fraction] 31.9 % Low 35 - 47 % [facility] Hemoglobin (Bld) [Mass/Vol] 10.6 g/dL Low 11.7 - 16 g/dL [facility] [employer] Interpretation and review of laboratory results Abnormal [facility] [place] Test Performed by [facility], [address] [place], [place] [id number] [place] [address] [place] Magnesiumon 10-08-2019 Interpretation and review of laboratory results Abnormal [facility] [employer] JAIDA Magnesium [Mass/Vol] 1.3 mg/dL Low 1.6 - 2 .3 mg/dL [facility], [employer] Otheron 10-08-2019 Test Performed by [facility], [address] [place], [place] [id number] [place] [address] [place] POCT Arterialon 10-08-2019 Base Excess, Arterial 0.8 mmol/L -3 - 3 mmol/L [facility] [place] HCO3, Arterial 24.2 mmol/L 21 - 25 mmol/L [facility] [place] Interpretation and review of laboratory results Abnormal [facility] Oxygen saturation in Blood 93.9 % Low 95 - 100 % [facility] [place], [place] pCO2, Arterial 33.7 mm[Hg] Low 35 - 45 mm[Hg] [facility] [place] pH, Arterial 7.464 High [facility] pO2, Arterial 65.5 mm[Hg] Low 80 - 100 mm[Hg] [place] Sodium [Moles/Vol] 50 mmol/L [place] Comment on above: Performed by CLIA ID : [id number] [place], [place] TCO2, Arterial 25.3 mmol/L 23 - 27 mmol/L [place] Test Performed by [facility], [address], [place], [place] [address] [place] Phosphoruson 10-08-2019 Phosphate [Mass/Vol] 2.8 mg/dL 2.5 - 4 .5 mg/dL [place] XR CHEST PORTABLEon 10-08-19 20 Patient Name: CHARLIE NGUYEN ---Diagnostic Radiology--- Exam Date/Time 10/08/2019 10:52:00 EDT Exam CR Chest Portable Ordering Physician DES ROMERO Accession Number [id number] CPT4 Codes 17567 () Reason For Exam central line placement Report CLINICAL INFORMATION: Respiratory distress. Intubation. Portable view of the chest at 1050 hours is provided and compared to a previous study dated October 05, 2019. FINDINGS: An endotracheal tube is seen with its tip approximately 5 cm above the shira. An enteric tube extends into the stomach. A new right IJ line is in place. The distal tip is in the superior vena cava. The cardiac silhouette and mediastinum are otherwise unremarkable. An infiltrate in the right lower lobe is unchanged. There is no pneumothorax. IMPRESSION: 1. Endotracheal tube in satisfactory position. 2. New right IJ line as described. The distal tip is in the SVC. 3. Right lower lobe infiltrate. 4. No pneumothorax after line placement. Report Dictated on --- Final --- Dictating Physician: MD VAZQUEZ JEFFREY Signed Date and Time: 10/08/2019 11:12 am Signed by: MD VAZQUEZ JEFFREY Transcribed Date and Time: 10/08/2019 11:13 [place] Rodolfo, [facility] Incoming Radiology Results From [employer] - 10/08/2019 11:13 AM EDT Patient Name: CHARLIE NGUYEN ---Diagnostic Radiology--- Exam Date/Time 10/08/2019 10:52:00 EDT Exam CR Chest Portable Ordering Physician ROMERODES LAM Accession Number [id number] CPT4 Codes 62182 () Reason For Exam central line placement Report CLINICAL INFORMATION: Respiratory distress. Intubation. Portable view of the chest at 1050 hours is provided and compared to a previous study dated October 05, 2019. FINDINGS: An endotracheal tube is seen with its tip approximately 5 cm above the shira. An enteric tube extends into the stomach. A new right IJ line is in place. The distal tip is in the superior vena cava. The cardiac silhouette and mediastinum are otherwise unremarkable. An infiltrate in the right lower lobe is unchanged. There is no pneumothorax. IMPRESSION: 1. Endotracheal tube in satisfactory position. 2. New right IJ line as described. The distal tip is in the SVC. 3. Right lower lobe infiltrate. 4. No pneumothorax after line placement. Report Dictated on --- Final --- Dictating Physician: MD VAZQUEZ JEFFREY Signed Date and Time: 10/08/2019 11:12 am Signed by: MD VAZQUEZ JEFFREY Transcribed Date and Time: 10/08/2019 11:13 [place] Basic Metabolic Panelon 05-0 Anion gap [Moles/Vol] 6 mmol/L [place], [place] Calcium [Mass/Vol] 6.7 mg/dL Low 8.4 - 10. 4 mg/dL [place] Chloride [Moles/Vol] 108 mmol/L High 98 - 10 7 mmol/L [place] CO2 [Moles/Vol] 22 mmol/L 22 - 30 mmol/L [place] Creatinine [Mass/Vol] 0.42 mg/dL Low 0.52 - 1.25 mg/dL [place] EGFR IF NonAfrican [place] >60.0 >60 mL/min [place] Comment on above: Source- MDRD equatio n with creatinine calibration to IDMS(NKDEP) eGFR not recommended for drug dose adjustment GFR/1.73 sq M predicted among blacks MDRD (S/P/Bld) [Vol rate/Area] mL/min/{1.73_m2} >60 mL/min [place] Glucose [Mass/Vol] 103 mg/dL High 70 - 100 mg/dL [place] Interpretation and review of laboratory results Abnormal [place] Potassium [Moles/Vol] 3.3 mmol/L Low 3.5 - 5.1 mmol/L [place] Sodium [Moles/Vol] 136 mmol/L 135 - 145 mmol/L [place] Urea nitrogen [Mass/Vol] 17 mg/dL 7 - 20 mg/d L [place] Test Performed by [facility] [employer] [facility], [address] [place], [place], [place] [address] [place] Anion gap [Moles/Vol] 6 mmol/L [place] Calcium [Mass/Vol] 7.5 mg/dL Low 8.4 - 10. 4 mg/dL [place] Chloride [Moles/Vol] 106 mmol/L 98 - 10 7 mmol/L [place] CO2 [Moles/Vol] 25 mmol/L 22 - 30 mmol/L [place] Creatinine [Mass/Vol] 0.55 mg/dL 0.52 - 1.25 mg/dL [place] EGFR IF NonAfrican [place] >60.0 >60 mL/min [place] Comment on above: Source- MDRD equatio n with creatinine calibration to IDMS(NKDEP) eGFR not recommended for drug dose adjustment GFR/1.73 sq M predicted among blacks MDRD (S/P/Bld) [Vol rate/Area] mL/min/{1.73_m2} >60 mL/min [place] Glucose [Mass/Vol] 114 mg/dL High 70 - 100 mg/dL [place] Interpretation and review of laboratory results Abnormal [place] Potassium [Moles/Vol] 3.4 mmol/L Low 3.5 - 5.1 mmol/L [place] Sodium [Moles/Vol] 138 mmol/L 135 - 145 mmol/L [place] Urea nitrogen [Mass/Vol] 17 mg/dL 7 - 20 mg/d L [place] CBC Auto Differentialon 05-0 Absolute Baso # 0.0 10*3/uL 0 - 0.2 10*3/uL [place] Absolute Neut # 8.6 10*3/uL High 1.8 - 7 10*3/uL [place] Basophils/100 WBC (Bld) 0.4 % 0 - 2 % M [place] Eosinophils (Bld) [#/Vol] 0.2 10*3/uL 0 - 0.5 10*3/uL [place] Eosinophils/100 WBC (Bld) 1.7 % 1 - 6 % [place] Erythrocyte distribution width (RBC) [Ratio] 15.2 % High 11.5 - 14.5 % [place] Granulocytes/100 WBC (Bld) 78.3 % 40 - 80 % [place] Hematocrit (Bld) [Volume fraction] 34.1 % Low 35 - 47 % [place] Hemoglobin (Bld) [Mass/Vol] 11.3 g/dL Low 11.7 - 16 g/dL [place] Interpretation and review of laboratory results Abnormal [place] Lymphocytes (Bld) [#/Vol] 1.3 10*3/uL 1 - 4.3 10*3/uL [place] Lymphocytes/100 WBC (Bld) 11.8 % Low 20 - 40 % [place] MCH (RBC) [Entitic mass] 32.2 pg 26 - 34 pg [place] MCHC (RBC) [Mass/Vol] 33.2 % 32 - 36 % [place] MCV (RBC) [Entitic vol] 96.9 fL 79 - 98 fL [place] Monocytes (Bld) [#/Vol] 0.9 10*3/uL High 0 - 0.8 10*3/uL [place] Monocytes/100 WBC (Bld) 7.8 % 2 - 10 % [place] Platelet mean volume (Bld) [Entitic vol] 8.8 fL 7.4 - 10.4 fL [place] Platelets (Bld) [#/Vol] 204 10*3/uL 140 - 440 10*3/uL [place] RBC (Bld) [#/Vol] 3.52 10*6/uL Low 3.8 - 5.2 10*6/uL [place] WBC (Bld) [#/Vol] 11.0 10*3/uL High 3.6 - 10.7 10*3/uL [place] Test Performed by [facility], [address], [place], [place] [address] [place] EKG 12 Leadon 10-07-2019 [facility] Test Date: 2019-10-06 Pat Name: Charlie Nguyen Department: 2[facility] Room: 232 Gender: F Churn Tender: RE : 1955 Requested By: NICA SAL Order Number: [id number] Reading MD: Kurtis Urbina Measurements Intervals [place] Rate: 73 P: 35 WA: 168 QRS: 17 QRSD: 104 T: 42 QT: 400 QTc: 441 Interpretive Statements SINUS RHYTHM mildly widened QRS complex VENTRICULAR PREMATURE COMPLEX Electronically Signed On 10-07-2019 13:02:46 EDT by Kurtis Urbina [facility], [facility] Incoming Cardiology Results From [facility] - 10/07/2019 1:03 PM EDT [facility] Test Date: 2019-10-06 Pat Name: Charlie Nguyen Department: [facility] Room: 232 Gender: F Churn Tender: RE : 1955 Requested By: NICA SAL Order Number: [id number] Reading MD: Kurtis Urbina Measurements Intervals [place] Rate: 73 P: 35 WA: 168 QRS: 17 QRSD: 104 T: 42 QT: 400 QTc: 441 Interpretive Statements SINUS RHYTHM mildly widened QRS complex VENTRICULAR PREMATURE COMPLEX Electronically Signed On 10-07-2019 13:02:46 EDT by Kurtis Urbina [place] Rodol[place], [facility] Incoming Cardiology Results From [facility] - 10/07/2019 12:57 PM EDT [facility] Test Date: 2019-10-05 Pat Name: Charlie Nguyen Department: 03 Room: 232 Gender: F Churn Tender: GISELLE : 1955 Requested By: NICA SAL Order Number: [id number] Reading MD: Kurtis Urbina Measurements Intervals [place] Rate: 70 P: 50 WA: 164 QRS: 29 QRSD: 106 T: 44 QT: 388 QTc: 419 Interpretive Statements SINUS RHYTHM VENTRICULAR TRIGEMINY BORDERLINE INTRAVENTRICULAR CONDUCTION DELAY Electronically Signed On 10-07-2019 12:56:39 EDT by Kurtis Petit [facility]alk[facility]jaida [facility] Test Date: 2019-10-05 Pat Name: Charlie Nguyen Department: 03 Room: 232 Gender: F Churn Tender: GISELLE : 1955 Requested By: NICA CognioSCH Order Number: [id number] Reading MD: Kurtis Urbina Measurements Intervals [place] Rate: 70 P: 50 WA: 164 QRS: 29 QRSD: 106 T: 44 QT: 388 QTc: 419 Interpretive Statements SINUS RHYTHM VENTRICULAR TRIGEMINY BORDERLINE INTRAVENTRICULAR CONDUCTION DELAY Electronically Signed On 10-07-2019 12:56:39 EDT by Kurtis Wardmin[facility] Incoming Cardiology Results From [facility] - 10/07/2019 12:37 PM EDT [facility] Test Date: 2019-10-05 Pat Name: Charlie Patrick Department: [facility] Room: 232 Gender: F Churn Tender: VANESSA : 1955 Requested By: NICA CognioSCH Order Number: [id number] Reading MD: Kurtis Urbina Measurements Intervals [place] Rate: 115 P: 41 WA: 168 QRS: 4 QRSD: 104 T: 56 QT: 320 QTc: 443 Interpretive Statements SINUS TACHYCARDIA nonspecific intraventricular conduction delay BORDERLINE R WAVE PROGRESSION, ANTERIOR LEADS Electronically Signed On 10-07-2019 12:36:21 EDT by Kurtis WardPlayrolljaida [facility] Test Date: 2019-10-05 Pat Name: Charlierudy Nguyen [facility]: [facility] Room: 232 Gender: F Churn Tender: VANESSA : 1955 Requested By: NICA ISABELSCH Order Number: [id number] Reading MD: Kurtis Urbina Measurements Intervals [place] Rate: 115 P: 41 WA: 168 QRS: 4 QRSD: 104 T: 56 QT: 320 QTc: 443 Interpretive Statements SINUS TACHYCARDIA nonspecific intraventricular conduction delay BORDERLINE R WAVE PROGRESSION, ANTERIOR LEADS Electronically Signed On 10-07-2019 12:36:21 EDT by Kurtis Urbina [facility] [employer] [facility] Test Date: 2019-10-06 Pat Name: Charlie Nguyen Department: [facility] Room: 232 Gender: F Churn Tender: GISELLE : 1955 Requested By: NICA ISABELSCH Order Number: [id number] Reading MD: Tara Mari Measurements Intervals [place] Rate: 68 P: 32 WA: 180 QRS: 0 QRSD: 104 T: 16 QT: 432 QTc: 460 Interpretive Statements SINUS RHYTHM Compared to ECG 10/06/2019 07:54:36 Ventricular premature complex(es) no longer present Electronically Signed On 10-07-2019 12:16:42 EDT by SlideJar [facility] Incoming Cardiology Results From [facility] - 10/07/2019 12:17 PM EDT [employer] [facility] Test Date: 2019-10-06 Pat Name: Charlie Nguyen Department: [facility] Room: 232 Gender: F Churn Tender: GISELLE : 1955 Requested By: NICA BOTSCH Order Number: [id number] Reading MD: Tara Mari Measurements Intervals [place] Rate: 68 P: 32 WA: 180 QRS: 0 QRSD: 104 T: 16 QT: 432 QTc: 460 Interpretive Statements SINUS RHYTHM Compared to ECG 10/06/2019 07:54:36 Ventricular premature complex(es) no longer present Electronically Signed On 10-07-2019 12:16:42 EDT by SlideJar [facility], [facility] Incoming Cardiology Results From [employer] - 10/07/2019 12:13 PM EDT [facility] [employer] [facility] Test Date: 2019-10-07 Pat Name: Charlie Nguyen Department: [facility] Room: 232 Gender: F Churn Tender: RE : 1955 Requested By: NICA SAL Order Number: [id number] Reading MD: Tara Mari Measurements Intervals [place] Rate: 66 P: 57 WA: 176 QRS: 6 QRSD: 108 T: 18 QT: 444 QTc: 466 Interpretive Statements SINUS RHYTHM BORDERLINE INTRAVENTRICULAR CONDUCTION DELAY Compared to ECG 10/06/2019 20:43:01 No significant changes Electronically Signed On 10-07-2019 12:12:42 EDT by [facility] [email or web address] [facility] Hospital[facility] [employer] [facility] Test Date: 2019-10-07 Pat Name: Charlie Nguyen Department: [facility] Room: 232 Gender: F Churn Tender: VANESSA : 1955 Requested By: NICA SAL Order Number: [id number] Reading MD: Tara Mari Measurements Intervals [place] Rate: 66 P: 57 WA: 176 QRS: 6 QRSD: 108 T: 18 QT: 444 QTc: 466 Interpretive Statements SINUS RHYTHM BORDERLINE INTRAVENTRICULAR CONDUCTION DELAY Compared to ECG 10/06/2019 20:43:01 No significant changes Electronically Signed On 10-07-2019 12:12:42 EDT by [facility] [email or web address] [facility] [employer] [facility] Test Date: 2019-10-03 Pat Name: Charlie Nguyen Department: 3 Room: 232 Gender: F Churn Tender: GISELLE : 1955 Requested By: RAJENDRA KIM Order Number: [id number] Reading MD: Kurtis Hi Measurements Intervals [place] Rate: 103 P: 7 WA: 160 QRS: -7 QRSD: 108 T: 222 QT: 364 QTc: 477 Interpretive Statements SINUS TACHYCARDIA BORDERLINE INTRAVENTRICULAR CONDUCTION DELAY NONSPECIFIC T ABNORMALITIES, INFERIOR LEADS Compared to ECG 10/03/2019 07:51:05 T-wave abnormality now present Sinus rhythm no longer present Left ventricular hypertrophy no longer present Electronically Signed On 10-07-2019 11:54:11 EDT by Kurtis Hi [facility], [facility] Incoming Cardiology Results From [facility] - 10/07/2019 11:55 AM EDT [facility] Test Date: 2019-10-03 Pat Name: Charlie Nguyen Department: 3 Room: 232 Gender: F Churn Tender: GISELLE : 1955 Requested By: RAJENDRA KIM Order Number: [id number] Reading MD: Kurtis Hi Measurements Intervals [place] Rate: 103 P: 7 WA: 160 QRS: -7 QRSD: 108 T: 222 QT: 364 QTc: 477 Interpretive Statements SINUS TACHYCARDIA BORDERLINE INTRAVENTRICULAR CONDUCTION DELAY NONSPECIFIC T ABNORMALITIES, INFERIOR LEADS Compared to ECG 10/03/2019 07:51:05 T-wave abnormality now present Sinus rhythm no longer present Left ventricular hypertrophy no longer present Electronically Signed On 10-07-2019 11:54:11 EDT by Kurtis [place] Magnesiumon 10-07-2019 Magnesium [Mass/Vol] 1.7 mg/dL 1.6 - 2 .3 mg/dL [place] Otheron 10-07-2019 [facility], [address] POCT Arterialon 10-07-2019 Base Excess, Arterial 0.1 mmol/L -3 - 3 mmol/L [place] HCO3, Arterial 23.3 mmol/L 21 - 25 mmol/L [place] Interpretation and review of laboratory results Abnormal [place] Oxygen saturation in Blood 95.1 % 95 - 100 % [place] pCO2, Arterial 32.6 mm[Hg] Low 35 - 45 mm[Hg] [place] pH, Arterial 7.462 [place] pO2, Arterial 70.7 mm[Hg] Low 80 - 100 mm[Hg] [place] Sodium [Moles/Vol] 50 mmol/L [place] Comment on above: Performed by LATASHA ID : [id number] [place], [place] TCO2, Arterial 24.3 mmol/L 23 - 27 mmol/L [place] Test Performed by [facility] [employer] [facility], [address] [place], [place] [address] [place] Phosphoruson 10-07-2019 Phosphate [Mass/Vol] 3.0 mg/dL 2.5 - 4 .5 mg/dL [place] Add On Lab Teston 10-06-2019 Sodium [Moles/Vol] Accepted [place] Comment on above: Specimen available & acceptable for analysis. Test Performed by [facility], [address], [place], [place] [address] [place] Basic Metabolic Panelon Anion gap [Moles/Vol] 6 mmol/L [place] Calcium [Mass/Vol] 7.5 mg/dL Low 8.4 - 10. 4 mg/dL [place] Chloride [Moles/Vol] 105 mmol/L 98 - 10 7 mmol/L [place] CO2 [Moles/Vol] 26 mmol/L 22 - 30 mmol/L [place] Creatinine [Mass/Vol] 0.58 mg/dL 0.52 - 1.25 mg/dL [place] EGFR IF NonAfrican [place] >60.0 >60 mL/min [place] Comment on above: Source- MDRD equatio n with creatinine calibration to IDMS(NKDEP) eGFR not recommended for drug dose adjustment GFR/1.73 sq M predicted among blacks MDRD (S/P/Bld) [Vol rate/Area] mL/min/{1.73_m2} >60 mL/min [place] Glucose [Mass/Vol] 85 mg/dL 70 - 100 mg/dL [place] Interpretation and review of laboratory results Abnormal [place] Potassium [Moles/Vol] 3.8 mmol/L 3.5 - 5.1 mmol/L [place] Sodium [Moles/Vol] 137 mmol/L 135 - 145 mmol/L [place] Urea nitrogen [Mass/Vol] 17 mg/dL 7 - 20 mg/d L [place] Test Performed by [facility], [address], [place], [place] [address] [place] Anion gap [Moles/Vol] 7 mmol/L [place] Calcium [Mass/Vol] 7.7 mg/dL Low 8.4 - 10. 4 mg/dL [place] Chloride [Moles/Vol] 104 mmol/L 98 - 10 7 mmol/L [place] CO2 [Moles/Vol] 26 mmol/L 22 - 30 mmol/L [place] Creatinine [Mass/Vol] 0.55 mg/dL 0.52 - 1.25 mg/dL [place] EGFR IF NonAfrican [place] >60.0 >60 mL/min [place] Comment on above: Source- MDRD equatio n with creatinine calibration to IDMS(NKDEP) eGFR not recommended for drug dose adjustment GFR/1.73 sq M predicted among blacks MDRD (S/P/Bld) [Vol rate/Area] mL/min/{1.73_m2} >60 mL/min [place] Glucose [Mass/Vol] 89 mg/dL 70 - 100 mg/dL [place] Interpretation and review of laboratory results Abnormal [place] Potassium [Moles/Vol] 4.0 mmol/L 3.5 - 5.1 mmol/L [place] Sodium [Moles/Vol] 137 mmol/L 135 - 145 mmol/L [place] Urea nitrogen [Mass/Vol] 18 mg/dL 7 - 20 mg/d L [place] Test Performed by [facility], [address] [place], [place] [address] [place] CBC Auto Differentialon 05-0 Erythrocyte distribution width (RBC) [Ratio] 15.3 % High 11.5 - 14.5 % [place] Hematocrit (Bld) [Volume fraction] 34.5 % Low 35 - 47 % [place] Hemoglobin (Bld) [Mass/Vol] 11.2 g/dL Low 11.7 - 16 g/dL [place] Interpretation and review of laboratory results Abnormal [place] MCH (RBC) [Entitic mass] 31.7 pg 26 - 34 pg [place] MCHC (RBC) [Mass/Vol] 32.4 % 32 - 36 % [place] MCV (RBC) [Entitic vol] 97.8 fL 79 - 98 fL [place], [place] Platelet mean volume (Bld) [Entitic vol] 8.9 fL 7.4 - 10.4 fL [place] Platelets (Bld) [#/Vol] 146 10*3/uL 140 - 440 10*3/uL [place] RBC (Bld) [#/Vol] 3.53 10*6/uL Low 3.8 - 5.2 10*6/uL [place] WBC (Bld) [#/Vol] 11.6 10*3/uL High 3.6 - 10.7 10*3/uL [place] Test Performed by [facility], [address] [place], [place] [id number] [place] [address] Gram Stainon 10-06-2019 INR Coag (Bld) [Relative time] Many polymorphonuclear cells/lpf. Rare epithelial cells/lpf. Rare gram positive cocci. [place] Test Performed by [facility], [address] [place] [id number] Specimen Source Comment:BAL- Right [place] Magnesiumon 10-06-2019 Magnesium [Mass/Vol] 1.8 mg/dL 1.6 - 2 .3 mg/dL [place] Test Performed by [facility], [address] [place], [place] [id number] [place] [address] Manual Differentialon 2019 Absolute Baso # 0.0 10*3/uL 0 - 0.2 10*3/uL [place] Absolute Eos # 0.2 10*3/uL 0 - 0.5 10*3/uL [place] Absolute Lymph # 0.9 10*3/uL Low 1.1 - 4.5 10*3/uL [place] Absolute [place] # 0.3 10*3/uL 0.2 - 1.1 10*3/uL [place] Absolute Neut # 10.1 10*3/uL High 2.2 - 8.2 10*3/uL [place] Anisocytosis Ql (Bld) Slight [facility], [place] Bands 0 % 0 - 3 % [facility]- [place], [place] Basophils 0 % 0 - 2 % [facility] [place], [place] Eosinophils 2 % 1 - 6 % [facility] [place] Interpretation and review of laboratory results Abnormal [facility], [place] Lymphocytes 8 % Low 20 - 40 % [facility] Macrocytosis Slight [facility], [place] Monocytes 3 % 2 - 10 % [facility]- [place] RBC morphology finding Nom (Bld) ABNORMAL [facility], [place] Seg Neutrophils 87 % High 40 - 80 % [facility]- [place], [place] TOTAL CELLS COUNTED 100 [place] Test Performed by [facility], [address] [place], [place] [address] [place] POCT Arterialon 10-06-2019 Base Excess, Arterial 0.3 mmol/L -3 - 3 mmol/L [facility], [place] HCO3, Arterial 23.1 mmol/L 21 - 25 mmol/L [place] Interpretation and review of laboratory results Abnormal [place] Oxygen saturation in Blood 94.8 % Low 95 - 100 % [facility], [place] pCO2, Arterial 30.9 mm[Hg] Low 35 - 45 mm[Hg] [facility], [place] pH, Arterial 7.482 [place] pO2, Arterial 67.6 mm[Hg] Low 80 - 100 mm[Hg] [facility], [place] Sodium [Moles/Vol] 50 mmol/L [place] Comment on above: Performed by DAYNAIA ID : [id number] [place], [place] TCO2, Arterial 24.1 mmol/L 23 - 27 mmol/L [facility], [place] Test Performed by [facility], [address] [place], [place] [address] [place] Base Excess, Arterial 3.2 mmol/L High -3 - 3 mmol/L [facility], [place] HCO3, Arterial 27.1 mmol/L [place] 21 - 25 mmol/L [place] Interpretation and review of laboratory results Abnormal [place] Oxygen saturation in Blood 92.6 % Low 95 - 100 % [place] pCO2, Arterial 38.1 mm[Hg] 35 - 45 mm[Hg] [place] pH, Arterial 7.460 [place] pO2, Arterial 62.0 mm[Hg] Low 80 - 100 mm[Hg] [place] Sodium [Moles/Vol] 50 mmol/L [place] Comment on above: Performed by CLIA ID : [id number] [place], [place] TCO2, Arterial 28.3 mmol/L High 23 - 27 mmol/L [place] Test Performed by [facility], [address], [place], [place] [address] [place] RENAL + LIVER PROFon 020 Albumin [Mass/Vol] 2.8 g/dL Low 3.5 - 5 g/dL [place] ALP [Catalytic activity/Vol] 132 U/L [place] 38 - 126 U/L [place] ALT [Catalytic activity/Vol] 14 U/L 0 - 34 U/L [place] Comment on above: The ALT test is perf ormed by an updated assay method. Please note that the reference intervals have been changed and are now sex specific. Anion gap [Moles/Vol] 6 mmol/L [place] AST [Catalytic activity/Vol] 26 U/L 15 - 46 U/L [place] Bilirubin Ql (U) 1.0 mg/dL 0.2 - 1.3 mg/dL [place] Bilirubin.direct [Mass/Vol] 0.0 mg/dL 0 - 0.3 mg/dL [place] Calcium [Mass/Vol] 7.8 mg/dL Low 8.4 - 10. 4 mg/dL [place] Chloride [Moles/Vol] 103 mmol/L 98 - 10 7 mmol/L [place] CO2 [Moles/Vol] 27 mmol/L 22 - 30 mmol/L [place] Creatinine [Mass/Vol] 0.56 mg/dL 0.52 - 1.25 mg/dL [place] EGFR IF NonAfrican [place] >60.0 >60 mL/min [place] Comment on above: Source- MDRD equatio n with creatinine calibration to IDMS(NKDEP) eGFR not recommended for drug dose adjustment GFR/1.73 sq M predicted among blacks MDRD (S/P/Bld) [Vol rate/Area] mL/min/{1.73_m2} >60 mL/min [place] Glucose [Mass/Vol] 99 mg/dL 70 - 100 mg/dL [place] Interpretation and review of laboratory results Abnormal [place] Phosphate [Mass/Vol] 2.8 mg/dL 2.5 - 4 .5 mg/dL [place] Potassium [Moles/Vol] 3.9 mmol/L 3.5 - 5.1 mmol/L [place] Protein [Mass/Vol] 6.2 g/dL Low 6.3 - 8.2 g/dL [place] Sodium [Moles/Vol] 136 mmol/L 135 - 145 mmol/L [place] Urea nitrogen [Mass/Vol] 17 mg/dL 7 - 20 mg/d L [place] Test Performed by [facility], [address] [place], [place] [id number] [place] [address] Add On Lab Teston 10-05-2019 Sodium [Moles/Vol] Accepted [place] Comment on above: Specimen available & acceptable for analysis. Test Performed by [facility] [employer] [facility], [address] [place], [place] [address] [place] Basic Metabolic Panelon - Anion gap [Moles/Vol] 5 mmol/L [place] Calcium [Mass/Vol] 7.4 mg/dL Low 8.4 - 10. 4 mg/dL [place] Chloride [Moles/Vol] 104 mmol/L 98 - 10 7 mmol/L [place] CO2 [Moles/Vol] 27 mmol/L 22 - 30 mmol/L [place] Creatinine [Mass/Vol] 0.48 mg/dL Low 0.52 - 1.25 mg/dL [place] EGFR IF NonAfrican [place] >60.0 >60 mL/min [place] Comment on above: Source- MDRD equatio n with creatinine calibration to IDMS([facility]) eGFR not recommended for drug dose adjustment GFR/1.73 sq M predicted among blacks MDRD (S/P/Bld) [Vol rate/Area] mL/min/{1.73_m2} >60 mL/min [place] Glucose [Mass/Vol] 91 mg/dL 70 - 100 mg/dL [place] Interpretation and review of laboratory results Abnormal [place] Potassium [Moles/Vol] 3.6 mmol/L 3.5 - 5.1 mmol/L [place] Sodium [Moles/Vol] 135 mmol/L 135 - 145 mmol/L [place] Urea nitrogen [Mass/Vol] 15 mg/dL 7 - 20 mg/d L [place] Test Performed by [facility], [address] [place], [place] [address] [place] Anion gap [Moles/Vol] 4 mmol/L [place] Calcium [Mass/Vol] 6.0 mg/dL Low 8.4 - 10. 4 mg/dL [place] Chloride [Moles/Vol] 111 mmol/L High 98 - 10 7 mmol/L [place] CO2 [Moles/Vol] 24 mmol/L 22 - 30 mmol/L [place] Creatinine [Mass/Vol] 0.43 mg/dL Low 0.52 - 1.25 mg/dL [place] EGFR IF NonAfrican [place] >60.0 >60 mL/min [place] Comment on above: Source- MDRD equatio n with creatinine calibration to IDMS(NKDE) eGFR not recommended for drug dose adjustment GFR/1.73 sq M predicted among blacks MDRD (S/P/Bld) [Vol rate/Area] mL/min/{1.73_m2} >60 mL/min [place] Glucose [Mass/Vol] 87 mg/dL 70 - 100 mg/dL [place] Interpretation and review of laboratory results Abnormal [place] Potassium [Moles/Vol] 3.5 mmol/L 3.5 - 5.1 mmol/L [place] Sodium [Moles/Vol] 138 mmol/L 135 - 145 mmol/L [place] Urea nitrogen [Mass/Vol] 13 mg/dL 7 - 20 mg/d L [place] Test Performed by [facility] [employer] [facility], [address], [place], [place] [address] [place] Anion gap [Moles/Vol] 4 mmol/L [place] Calcium [Mass/Vol] 6.3 mg/dL Low 8.4 - 10. 4 mg/dL [place] Chloride [Moles/Vol] 106 mmol/L 98 - 10 7 mmol/L [place] CO2 [Moles/Vol] 26 mmol/L 22 - 30 mmol/L [place] Creatinine [Mass/Vol] 0.47 mg/dL Low 0.52 - 1.25 mg/dL [place] EGFR IF NonAfrican [place] >60.0 >60 mL/min [place] Comment on above: Source- MDRD equatio n with creatinine calibration to IDMS(NKDEP) eGFR not recommended for drug dose adjustment GFR/1.73 sq M predicted among blacks MDRD (S/P/Bld) [Vol rate/Area] mL/min/{1.73_m2} >60 mL/min [place] Glucose [Mass/Vol] 93 mg/dL 70 - 100 mg/dL [place] Interpretation and review of laboratory results Abnormal [place] Potassium [Moles/Vol] 3.5 mmol/L 3.5 - 5.1 mmol/L [place] Sodium [Moles/Vol] 136 mmol/L 135 - 145 mmol/L [place] Urea nitrogen [Mass/Vol] 14 mg/dL 7 - 20 mg/d L [place] Test Performed by [facility], [address], [place], [place] [address] [place] CBC Auto Differentialon 05-0 6-2020 Erythrocyte distribution width (RBC) [Ratio] 15.3 % High 11.5 - 14.5 % [place] Hematocrit (Bld) [Volume fraction] 33.3 % Low 35 - 47 % [place] Hemoglobin (Bld) [Mass/Vol] 10.5 g/dL Low 11.7 - 16 g/dL [place] Interpretation and review of laboratory results Abnormal [place] MCH (RBC) [Entitic mass] 31.1 pg 26 - 34 pg [place] MCHC (RBC) [Mass/Vol] 31.6 % Low 32 - 36 % Stephanie [place], [place] MCV (RBC) [Entitic vol] 98.5 fL High 79 - 98 fL [place] Platelet mean volume (Bld) [Entitic vol] 9.1 fL 7.4 - 10.4 fL [place] Platelets (Bld) [#/Vol] 131 10*3/uL Low 140 - 440 10*3/uL [place] RBC (Bld) [#/Vol] 3.38 10*6/uL Low 3.8 - 5.2 10*6/uL [place] WBC (Bld) [#/Vol] 11.1 10*3/uL High 3.6 - 10.7 10*3/uL [place] Test Performed by [facility], [address] [place], [place] [id number] [place] [address] CTA CHEST W WO CONTRASTon Patient Name: CHARLIE NGUYEN ---CT--- Exam Date/Time 10/05/2019 11:55:25 EDT Exam CTA Chest w/ + w/o Contrast Ordering Physician MD JUDY, RAJENDRA Accession Number [id number] CPT4 Codes 22172 (), Q9967 (CT ISOVUE 370MG/[id number]& ML&1) Reason For Exam pulmonary emboli Report Clinical indication: Drug overdose. Respiratory failure. Evaluate for pulmonary emboli. COMPARISON: Chest x-ray 10/05/2019 Contrast: 100 mL Isovue-370 intravenously Radiation dose: DLP [address] was performed with rapid bolus intravenous administration of contrast material. Axial and coronal reformatted images were evaluated. I performed 3-D reconstruction at the workstation. Endotracheal tube tip projects about 3 cm above the shira. Oral gastric tube tip extends into the fundus of the stomach. There are no focal filling defects noted within the opacified pulmonary arterial system. No abrupt termination is noted in the contrast column within the pulmonary arteries. No pathologically enlarged mediastinal or hilar lymph nodes are identified. No mediastinal masses are identified. Aorta is normal in size and the lumen enhances uniformly. Dense consolidation involves the right lower lobe with air bronchograms present. There is associated volume loss of the right lower lobe. A small amount of right pleural fluid is present. Posteriorly within the superior segment of the left lower lobe there is a pleural-based nodular density which measures 1.3 cm. This has internal density consistent with fat and may represent a pleural lipoma. No focal masses are identified within the visualized portions of the liver and spleen and the visualized portions of the adrenal glands appear normal in size. Multiple old rib fracture deformities are noted on the right. Impression: No CT evidence of pulmonary embolism. Right lower lobe consolidation and volume loss, probably a combination of pneumonia and atelectasis Fatty density pleural-based nodule on the left at the superior segment left lower lobe probably representing a pleural lipoma Report Dictated on Workstation: [id number] --- Final --- Dictating Physician: MD KELLY DIANE Signed Date and Time: 10/05/2019 12:15 pm Signed by: MD KELLY DIANE Transcribed Date and Time: 10/05/2019 12:16 [place], [facility] Incoming Radiology Results From [facility] - 10/05/2019 12:17 PM EDT Patient Name: CHARLIE NGUYEN ---CT--- Exam Date/Time 10/05/2019 11:55:25 EDT Exam CTA Chest w/ + w/o Contrast Ordering Physician MD JUDY, RAJENDRA Accession Number [id number] CPT4 Codes 48888 (), Q9967 (CT ISOVUE 370MG/[id number]& ML&1) Reason For Exam pulmonary emboli Report Clinical indication: Drug overdose. Respiratory failure. Evaluate for pulmonary emboli. COMPARISON: Chest x-ray 10/05/2019 Contrast: 100 mL Isovue-370 intravenously Radiation dose: DLP [address] was performed with rapid bolus intravenous administration of contrast material. Axial and coronal reformatted images were evaluated. I performed 3-D reconstruction at the workstation. Endotracheal tube tip projects about 3 cm above the shira. Oral gastric tube tip extends into the fundus of the stomach. There are no focal filling defects noted within the opacified pulmonary arterial system. No abrupt termination is noted in the contrast column within the pulmonary arteries. No pathologically enlarged mediastinal or hilar lymph nodes are identified. No mediastinal masses are identified. Aorta is normal in size and the lumen enhances uniformly. Dense consolidation involves the right lower lobe with air bronchograms present. There is associated volume loss of the right lower lobe. A small amount of right pleural fluid is present. Posteriorly within the superior segment of the left lower lobe there is a pleural-based nodular density which measures 1.3 cm. This has internal density consistent with fat and may represent a pleural lipoma. No focal masses are identified within the visualized portions of the liver and spleen and the visualized portions of the adrenal glands appear normal in size. Multiple old rib fracture deformities are noted on the right. Impression: No CT evidence of pulmonary embolism. 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, [place], [place] [address] [facility], [place] EKG 12 Leadon 10-05-2019 [facility] [employer] [facility] Test Date: 2019-10-04 Pat Name: Charlie Nguyen Department: 2[facility] Room: 232 Gender: F Churn Tender: GISELLE : 1955 Requested By: NICA SAL Order Number: [id number] Reading MD: Aldair Chao Measurements Intervals [place] Rate: 99 P: 22 WA: 156 QRS: 5 QRSD: 100 T: 69 QT: 344 QTc: 442 Interpretive Statements SINUS RHYTHM BORDERLINE T WAVE ABNORMALITIES Compared to ECG 10/04/2019 08:40:28 Sinus tachycardia no longer present T-wave abnormality still present Electronically Signed On 10-05-2019 11:00:42 EDT by Aldair [facility], [place], [facility] Incoming Cardiology Results From [facility] - 10/05/2019 11:01 AM EDT [facility] Test Date: 2019-10-04 Pat Name: Charlie Hicksell Department: 2[facility] Room: 232 Gender: F Churn Tender: GISELLE : 1955 Requested By: NICA ISABELSCH Order Number: [id number] Reading MD: Aldair Chao Measurements Intervals [place] Rate: 99 P: 22 [place]: 156 QRS: 5 QRSD: 100 T: 69 QT: 344 QTc: 442 Interpretive Statements SINUS RHYTHM BORDERLINE T WAVE ABNORMALITIES Compared to ECG 10/04/2019 08:40:28 Sinus tachycardia no longer present T-wave abnormality still present Electronically Signed On 10-05-2019 11:00:42 EDT by Aldair Zhanna [facility], [facility] [employer] [facility] Test Date: 2019-10-04 Pat Name: Charlie Patrick [facility] Room: 232 Gender: F Churn Tender: OTONIEL : 1955 Requested By: NICA ISABELSCH Order Number: [id number] Reading MD: Aldair Chao Measurements Intervals [place] Rate: 105 P: 10 WA: 164 QRS: 0 QRSD: 102 T: 259 QT: 308 QTc: 408 Interpretive Statements SINUS TACHYCARDIA LATE PRECORDIAL R/S TRANSITION NONSPECIFIC T ABNORMALITIES, LATERAL LEADS Compared to ECG 10/03/2019 21:59:07 Ventricular premature complex(es) no longer present Myocardial infarct finding no longer present Possible ischemia no longer present T-wave abnormality still present Electronically Signed On 10-05-2019 10:59:16 EDT by Aldair Zhanna [facility], [facility], [facility] Incoming Cardiology Results From [facility] - 10/05/2019 11:00 AM EDT [facility] Test Date: 2019-10-04 Pat Name: Charlie Patrick Department: [facility] Room: 232 Gender: F Churn Tender: SH : 1955 Requested By: NICA CognioMARCO A Order Number: [id number] Reading MD: Aldair Chao Measurements Intervals [place] Rate: 105 P: 10 WA: 164 QRS: 0 QRSD: 102 T: 259 QT: 308 QTc: 408 Interpretive Statements SINUS TACHYCARDIA LATE PRECORDIAL R/S TRANSITION NONSPECIFIC T ABNORMALITIES, LATERAL LEADS Compared to ECG 10/03/2019 21:59:07 Ventricular premature complex(es) no longer present Myocardial infarct finding no longer present Possible ischemia no longer present T-wave abnormality still present Electronically Signed On 10-05-2019 10:59:16 EDT by Aldair [facility], [facility], [facility] Incoming Cardiology Results From [facility] - 10/05/2019 10:11 AM EDT [facility] Test Date: 2019-10-03 Pat Name: Charlie Nguyen Department: [facility] Room: 232 Gender: F Churn Tender: ? : 1955 Requested By: NICA ISABELSCH Order Number: [id number] Reading MD: Danny Lamb Measurements Intervals [place] Rate: 114 P: 10 WA: 168 QRS: -4 QRSD: 106 T: 202 QT: 316 QTc: 436 Interpretive Statements SINUS TACHYCARDIA MULTIFORM VENTRICULAR PREMATURE COMPLEXES CONSIDER ANTEROSEPTAL INFARCT ABNORMAL T, CONSIDER ISCHEMIA, LATERAL LEADS BASELINE WANDER IN LEAD(S) V4 Electronically Signed On 10-05-2019 10:10:38 EDT by Danny Lamb [facility], [facility] Test Date: 2019-10-03 Pat Name: Charlie Nguyen Department: [facility] Room: 232 Gender: F Churn Tender: ? : 1955 Requested By: NICA SAL Order Number: [id number] Reading MD: Danny Miranad Intervals [place] Rate: 114 P: 10 WA: 168 QRS: -4 QRSD: 106 T: 202 QT: 316 QTc: 436 Interpretive Statements SINUS TACHYCARDIA MULTIFORM VENTRICULAR PREMATURE COMPLEXES CONSIDER ANTEROSEPTAL INFARCT ABNORMAL T, CONSIDER ISCHEMIA, LATERAL LEADS BASELINE WANDER IN LEAD(S) V4 Electronically Signed On 10-05-2019 10:10:38 EDT by Danny [facility], [place] EKG 12 Lead - Chest Painon 0 10-05-2019 [place], [facility] Incoming Cardiology Results From [facility] - 10/05/2019 9:42 AM EDT [facility] Test Date: 2019-10-03 Pat Name: Charlie Nguyen Department: 01 Room: 232 Gender: F Churn Tender: OTONIEL : 1955 Requested By: LULI MORRIS Order Number: [id number] Reading : Danny Miranda Intervals [place] Rate: 79 P: 11 WA: 188 QRS: -22 QRSD: 108 T: 6 QT: 366 QTc: 420 Interpretive Statements SINUS RHYTHM LEFT VENTRICULAR HYPERTROPHY BASELINE WANDER IN LEAD(S) V4 CONSIDER PRIOR AWMI Electronically Signed On 10-05-2019 9:41:32 EDT by Danny [facility], [facility] [employer] [facility] Test Date: 2019-10-03 Pat Name: Charlie Hicksell Department: 01 Room: 232 Gender: F Churn Tender: OTONIEL : 1955 Requested By: LULI MORRIS Order Number: [id number] Reading ANTONIO Miranda Intervals [place] Rate: 79 P: 11 WA: 188 QRS: -22 QRSD: 108 T: 6 QT: 366 QTc: 420 Interpretive Statements SINUS RHYTHM LEFT VENTRICULAR HYPERTROPHY BASELINE WANDER IN LEAD(S) V4 CONSIDER PRIOR AWMI Electronically Signed On 10-05-2019 9:41:32 EDT by [facility], [place] Gram Stainon 10-05-2019 INR Coag (Bld) [Relative time] Many polymorphonuclear cells/lpf. Rare epithelial cells/lpf. Many gram positive cocci in pairs and chains. Moderate gram positive bacilli. Few gram negative bacilli. [place] Test Performed by [facility], [address] [place] [address] Specimen Source Comment:Sputum [place] Magnesiumon 10-05-2019 Magnesium [Mass/Vol] 1.7 mg/dL 1.6 - 2 .3 mg/dL [place] Manual Differentialon 2019 Absolute Baso # 0.0 10*3/uL 0 - 0.2 10*3/uL [place] Absolute Eos # 0.1 10*3/uL 0 - 0.5 10*3/uL [place] Absolute Lymph # 0.9 10*3/uL Low 1.1 - 4.5 10*3/uL [place] Absolute [place] # 0.9 10*3/uL 0.2 - 1.1 10*3/uL [place] Absolute Neut # 9.2 10*3/uL High 2.2 - 8.2 10*3/uL [place] Anisocytosis Ql (Bld) Slight [place] Bands 0 % 0 - 3 % [place] Basophils 0 % 0 - 2 % [place] Eosinophils 1 % 1 - 6 % [place] Interpretation and review of laboratory results Abnormal [place] Lymphocytes 8 % Low 20 - 40 % [place] Monocytes 8 % 2 - 10 % [place] RBC morphology finding Nom (Bld) ABNORMAL [place] Seg Neutrophils 83 % High 40 - 80 % [place] TOTAL CELLS COUNTED 100 [place] Test Performed by [facility], [address], [place], [place] [address] [place] Otheron 10-05-2019 Test Performed by [facility], [address], [place], [place] [address] [place] POCT Arterialon 10-05-2019 Base Excess, Arterial 5.7 mmol/L High -3 - 3 mmol/L [place] HCO3, Arterial 29.9 mmol/L High 21 - 25 mmol/L [place] Interpretation and review of laboratory results Abnormal [place] Oxygen saturation in Blood 93.4 % Low 95 - 100 % [place] pCO2, Arterial 41.4 mm[Hg] 35 - 45 mm[Hg] [place] pH, Arterial 7.468 [place] pO2, Arterial 64.5 mm[Hg] Low 80 - 100 mm[Hg] [place] Sodium [Moles/Vol] 50 mmol/L [place] Comment on above: Performed by CLIA ID : [id number] [place], [place] TCO2, Arterial 31.2 mmol/L High 23 - 27 mmol/L [place] Test Performed by [facility], [address] [place] [address] [place] Phosphoruson 10-05-2019 Phosphate [Mass/Vol] 2.5 mg/dL 2.5 - 4 .5 mg/dL [place] XR CHEST PORTABLEon 10-05-19 20 [facility], [facility] Incoming Radiology Results From [facility] - 10/05/2019 6:13 AM EDT Patient Name: CHARLIE NGUYEN ---Diagnostic Radiology--- Exam Date/Time 10/05/2019 05:16:10 EDT Exam CR Chest Portable Ordering Physician BENJAMIN SAL ALEXANDER Accession Number [id number] CPT4 Codes 33740 () Reason For Exam respiratory failure Report PORTABLE CHEST: INDICATION: Respiratory failure COMPARISON: 10/03/2019 Obtained at 0509 hours. A single portable AP radiograph of the chest was obtained. The heart is enlarged. The mediastinal silhouette is normal. There is opacifying process of the right lung base representing effusion with atelectasis and/or infiltrate. Atelectasis of the left lung base is noted medially. There is no pleural thickening. Arthritic changes of the spine and shoulders are present. An ET tube and NG tube are present. The tip of the ET tube lies well above the shira. IMPRESSION: Opacified process of the right lung base representing effusion with atelectasis and/or infiltrate. Report Dictated on Workstation: [id number] --- Final --- Dictating Physician: DO DICKEY ALFRED Signed Date and Time: 10/05/2019 6:11 am Signed by: DO DICKEY ALFRED Transcribed Date and Time: 10/05/2019 6:12 [place] Patient Name: CHARLIE NGUYEN ---Diagnostic Radiology--- Exam Date/Time 10/05/2019 05:16:10 EDT Exam CR Chest Portable Ordering Physician BENJAMIN SAL ALEXANDER Accession Number [id number] CPT4 Codes 44373 () Reason For Exam respiratory failure Report PORTABLE CHEST: INDICATION: Respiratory failure COMPARISON: 10/03/2019 Obtained at 0509 hours. A single portable AP radiograph of the chest was obtained. The heart is enlarged. The mediastinal silhouette is normal. There is opacifying process of the right lung base representing effusion with atelectasis and/or infiltrate. Atelectasis of the left lung base is noted medially. There is no pleural thickening. Arthritic changes of the spine and shoulders are present. An ET tube and NG tube are present. The tip of the ET tube lies well above the shira. IMPRESSION: Opacified process of the right lung base representing effusion with atelectasis and/or infiltrate. Report Dictated on Workstation: [id number] --- Final --- Dictating Physician: DO DICKEY ALFRED Signed Date and Time: 10/05/2019 6:11 am Signed by: DO DICKEY ALFRED Transcribed Date and Time: 10/05/2019 6:12 [place] Add On Lab Teston 10-04-2019 Sodium [Moles/Vol] Accepted [place] Comment on above: Specimen available & acceptable for analysis. [facility], [address] Basic Metabolic Panelon Anion gap [Moles/Vol] 5 mmol/L [place] Calcium [Mass/Vol] 7.7 mg/dL Low 8.4 - 10. 4 mg/dL [place] Chloride [Moles/Vol] 97 mmol/L Low 98 - 10 7 mmol/L [place] CO2 [Moles/Vol] 34 mmol/L High 22 - 30 mmol/L [place] Creatinine [Mass/Vol] 0.61 mg/dL 0.52 - 1.25 mg/dL [place] EGFR IF NonAfrican [place] >60.0 >60 mL/min [place] Comment on above: Source- MDRD equatio n with creatinine calibration to IDMS(NKDEP) eGFR not recommended for drug dose adjustment GFR/1.73 sq M predicted among blacks MDRD (S/P/Bld) [Vol rate/Area] mL/min/{1.73_m2} >60 mL/min [place] Glucose [Mass/Vol] 104 mg/dL High 70 - 100 mg/dL [place] Interpretation and review of laboratory results Abnormal [place] Potassium [Moles/Vol] 3.4 mmol/L Low 3.5 - 5.1 mmol/L [place] Sodium [Moles/Vol] 135 mmol/L 135 - 145 mmol/L [place] Urea nitrogen [Mass/Vol] 16 mg/dL 7 - 20 mg/d L [place] Test Performed by [facility] [employer] [facility], [address] [place] [address] [place] Anion gap [Moles/Vol] 10 mmol/L [place] Calcium [Mass/Vol] 8.3 mg/dL Low 8.4 - 10. 4 mg/dL [place] Chloride [Moles/Vol] 95 mmol/L Low 98 - 10 7 mmol/L [place] CO2 [Moles/Vol] 34 mmol/L High 22 - 30 mmol/L [place] Creatinine [Mass/Vol] 0.68 mg/dL 0.52 - 1.25 mg/dL [place] EGFR IF NonAfrican [place] >60.0 >60 mL/min [place] Comment on above: Source- MDRD equatio n with creatinine calibration to IDMS(NKDEP) eGFR not recommended for drug dose adjustment GFR/1.73 sq M predicted among blacks MDRD (S/P/Bld) [Vol rate/Area] mL/min/{1.73_m2} >60 mL/min [place] Glucose [Mass/Vol] 108 mg/dL High 70 - 100 mg/dL [place] Interpretation and review of laboratory results Abnormal [place] Potassium [Moles/Vol] 3.6 mmol/L 3.5 - 5.1 mmol/L [place] Sodium [Moles/Vol] 138 mmol/L 135 - 145 mmol/L [place] Urea nitrogen [Mass/Vol] 17 mg/dL 7 - 20 mg/d L [place] Test Performed by [facility], [address] [place], [place] [address] [place] Basic Metabolic Panel w/ Ref balaji to MGon 10-04-2019 Anion gap [Moles/Vol] 6 mmol/L [place] Calcium [Mass/Vol] 6.7 mg/dL Low 8.4 - 10. 4 mg/dL [place] Chloride [Moles/Vol] 100 mmol/L 98 - 10 7 mmol/L [place] CO2 [Moles/Vol] 31 mmol/L High 22 - 30 mmol/L [place] Creatinine [Mass/Vol] 0.58 mg/dL 0.52 - 1.25 mg/dL [place] EGFR IF NonAfrican [place] >60.0 >60 mL/min [place] Comment on above: Source- MDRD equatio n with creatinine calibration to IDMS(NKDEP) eGFR not recommended for drug dose adjustment GFR/1.73 sq M predicted among blacks MDRD (S/P/Bld) [Vol rate/Area] mL/min/{1.73_m2} >60 mL/min [place] Glucose [Mass/Vol] 116 mg/dL High 70 - 100 mg/dL [place] Interpretation and review of laboratory results Abnormal [place] Potassium [Moles/Vol] 3.3 mmol/L Low 3.5 - 5.1 mmol/L [place] Sodium [Moles/Vol] 137 mmol/L 135 - 145 mmol/L [place] Urea nitrogen [Mass/Vol] 18 mg/dL 7 - 20 mg/d L [place] CBC auto differentialon 05-0 Absolute Baso # 0.1 10*3/uL 0 - 0.2 10*3/uL [place] Absolute Neut # 11.6 10*3/uL High 1.8 - 7 10*3/uL [place] Basophils/100 WBC (Bld) 0.4 % 0 - 2 % [place] Eosinophils (Bld) [#/Vol] 0.0 10*3/uL 0 - 0.5 10*3/uL [place] Eosinophils/100 WBC (Bld) 0.0 % Low 1 - 6 % [place] Erythrocyte distribution width (RBC) [Ratio] 15.5 % High 11.5 - 14.5 % [place] Granulocytes/100 WBC (Bld) 86.9 % High 40 - 80 % [place] Hematocrit (Bld) [Volume fraction] 37.4 % 35 - 47 % [place] Hemoglobin (Bld) [Mass/Vol] 12.2 g/dL 11.7 - 16 g/dL [place] Interpretation and review of laboratory results Abnormal [place] Lymphocytes (Bld) [#/Vol] 0.8 10*3/uL Low 1 - 4.3 10*3/uL [place] Lymphocytes/100 WBC (Bld) 6.2 % Low 20 - 40 % [place] MCH (RBC) [Entitic mass] 31.7 pg 26 - 34 pg [place] MCHC (RBC) [Mass/Vol] 32.6 % 32 - 36 % [place] MCV (RBC) [Entitic vol] 97.1 fL 79 - 98 fL [place], [place] Monocytes (Bld) [#/Vol] 0.9 10*3/uL High 0 - 0.8 10*3/uL [place] Monocytes/100 WBC (Bld) 6.5 % 2 - 10 % [place] Platelet mean volume (Bld) [Entitic vol] 9.0 fL 7.4 - 10.4 fL [place] Platelets (Bld) [#/Vol] 131 10*3/uL Low 140 - 440 10*3/uL [place] RBC (Bld) [#/Vol] 3.85 10*6/uL 3.8 - 5.2 10*6/uL [place] WBC (Bld) [#/Vol] 13.3 10*3/uL High 3.6 - 10.7 10*3/uL [place] Test Performed by [facility], [address] [place], [place] [id number] [place] [address] COVID-19on 10-04-2019 SARS-CoV-2 Not Detected Expected Result: Not Detected _ Real-time, RT-PCR performed on the [employer] System by the [facility]. Negative results do not preclude SARS-CoV-2 infection and should not be used as the sole basis for treatment or other patient management decisions. This assay was developed by [employer] and distributed under an Emergency Use Authorization (EUA) granted by the FDA for the qualitative detection of SARS-CoV-2 nucleic acid. [place] Test Performed by [facility], [address] [place] [address] [place] Magnesiumon 10-04-2019 Magnesium [Mass/Vol] 1.6 mg/dL 1.6 - 2 .3 mg/dL [place] Otheron 10-04-2019 Test Performed by [facility], [address] [place], [place] [id number] [place] [address] POCT Arterialon 10-04-2019 Base Excess, Arterial 6.5 mmol/L High -3 - 3 mmol/L [place] HCO3, Arterial 31.5 mmol/L High 21 - 25 mmol/L [place] Interpretation and review of laboratory results Abnormal [place] Oxygen saturation in Blood 94.1 % Low 95 - 100 % [place] pCO2, Arterial 45.4 mm[Hg] High 35 - 45 mm[Hg] [facility], [place] pH, Arterial 7.448 [place] pO2, Arterial 69.1 mm[Hg] Low 80 - 100 mm[Hg] [facility], [place] Sodium [Moles/Vol] 60 mmol/L [place] Comment on above: Performed by CLIA ID : [id number] [place], [place] TCO2, Arterial 32.9 mmol/L High 23 - 27 mmol/L [place] Test Performed by [facility] [employer] [facility], [address] [place], [place] [address] [place] Base Excess, Arterial 6.8 mmol/L High -3 - 3 mmol/L [facility], [place] HCO3, Arterial 31.7 mmol/L High 21 - 25 mmol/L [place] Interpretation and review of laboratory results Abnormal [place] Oxygen saturation in Blood 95.1 % 95 - 100 % [place] pCO2, Arterial 45.0 mm[Hg] 35 - 45 mm[Hg] [facility], [place] pH, Arterial 7.456 High [place] pO2, Arterial 73.2 mm[Hg] Low 80 - 100 mm[Hg] [place] Sodium [Moles/Vol] 60 mmol/L [place] Comment on above: Performed by CLIA ID : [id number] [place], [place] TCO2, Arterial 33 mmol/L High 23 - 27 mmol/L [place] Test Performed by [facility], [address] [place], [place] [address] [place] Phosphoruson 10-04-2019 Phosphate [Mass/Vol] 3.0 mg/dL 2.5 - 4 .5 mg/dL [place] Procalcitoninon 10-04-2019 Interpretation and review of laboratory results Abnormal [place] Procalcitonin 0.6 ng/mL Abnormal <0.10 [place] Sodium [Moles/Vol] See Below [place], [place] Comment on above: PCT <0.50 = Low risk of severe sepsis and/or septic shock. PCT >2.00 = High risk of severe sepsis and/or septic shock. Test Performed by [facility], [address], [place] [address] [place] ACETAMINOPHEN LEVELon 2019 Acetaminophen [Mass/Vol] <10.0 10 - 30 ug/mL [place] Acetaminophen Levelon 2019 Acetaminophen [Mass/Vol] <10.0 10 - 30 ug/mL [place] Test Performed by [facility], [address], [place], [place] [address] [place] Basic Metabolic Panelon Anion gap [Moles/Vol] 9 mmol/L [place] Calcium [Mass/Vol] 7.7 mg/dL Low 8.4 - 10. 4 mg/dL [place] Chloride [Moles/Vol] 92 mmol/L Low 98 - 10 7 mmol/L [place] CO2 [Moles/Vol] 34 mmol/L High 22 - 30 mmol/L [place] Creatinine [Mass/Vol] 0.53 mg/dL 0.52 - 1.25 mg/dL [place] EGFR IF NonAfrican [place] >60.0 >60 mL/min [place] Comment on above: Source- MDRD equatio n with creatinine calibration to IDMS(NKDEP) eGFR not recommended for drug dose adjustment GFR/1.73 sq M predicted among blacks MDRD (S/P/Bld) [Vol rate/Area] mL/min/{1.73_m2} >60 mL/min [place] Glucose [Mass/Vol] 198 mg/dL High 70 - 100 mg/dL [place] Interpretation and review of laboratory results Abnormal [place] Potassium [Moles/Vol] 2.9 mmol/L Low 3.5 - 5.1 mmol/L [place] Sodium [Moles/Vol] 135 mmol/L 135 - 145 mmol/L [place] Urea nitrogen [Mass/Vol] 23 mg/dL High 7 - 20 mg/d L [place] Test Performed by [facility], [address], [place], [place] [address] [place] Anion gap [Moles/Vol] 10 mmol/L [place] Calcium [Mass/Vol] 8.4 mg/dL 8.4 - 10. 4 mg/dL [place] Chloride [Moles/Vol] 97 mmol/L Low 98 - 10 7 mmol/L [place] CO2 [Moles/Vol] 32 mmol/L High 22 - 30 mmol/L [place] Creatinine [Mass/Vol] 0.73 mg/dL 0.52 - 1.25 mg/dL [place] EGFR IF NonAfrican [place] >60.0 >60 mL/min [place] Comment on above: Source- MDRD equatio n with creatinine calibration to IDMS(NKDEP) eGFR not recommended for drug dose adjustment GFR/1.73 sq M predicted among blacks MDRD (S/P/Bld) [Vol rate/Area] mL/min/{1.73_m2} >60 mL/min [place] Glucose [Mass/Vol] 103 mg/dL High 70 - 100 mg/dL [place] Interpretation and review of laboratory results Abnormal [place] Potassium [Moles/Vol] 4.0 mmol/L 3.5 - 5.1 mmol/L [place] Sodium [Moles/Vol] 139 mmol/L 135 - 145 mmol/L [place] Urea nitrogen [Mass/Vol] 34 mg/dL High 7 - 20 mg/d L [place] Test Performed by [facility], [address], [place], [place] [address] [place] Brain Natriuretic Peptideon 10-03-2019 Interpretation and review of laboratory results Abnormal [place] Natriuretic peptide B (Bld) [Mass/Vol] 222 pg/mL High 0 - 125 pg/mL [place] CKon 10-03-2019 Total CK 60 U/L 30 - 170 U/L [place] Cervical Spine WO Contras ton 10-03-2019 [facility], [facility] Incoming Radiology Results From [facility] - 10/03/2019 11:09 AM EDT Patient Name: CHARLIE NGUYEN ---CT--- Exam Date/Time 10/03/2019 10:54:[address] Spine Cervical w/o Contrast Ordering Physician DO MORRIS DAVID J Accession Number [id number] CPT4 Codes 76517 () Reason For Exam Suspected overdose Report CT CERVICAL SPINE: CLINICAL INDICATION: Altered mental status, suspected overdose TECHNIQUE: Transaxial sequence through the cervical spine. Coronal and sagittal reconstructions included. COMPARISON: None FINDINGS: There is normal cervical lordosis. No prevertebral soft tissue swelling. Craniocervical and atlantoaxial articulations are intact. Predental interval is not widened. Vertebral body heights are maintained. No cervical spine fracture. No spondylolisthesis. There are multilevel degenerative changes of the cervical spine with intervertebral disc space narrowing, endplate osteophytes, and uncovertebral and facet joint hypertrophy, most pronounced at C3-C4 and C4- C5. No high-grade osseous encroachment of the central canal or neural foramina. Imaged neck soft tissues and lung apices are unremarkable. Partially imaged patchy opacity in the imaged right lung apex, which may represent aspiration versus pneumonia. IMPRESSION: 1. No cervical spine fracture. 2. Partially imaged patchy opacity in the right lung apex, which may represent aspiration versus pneumonia. Report Dictated on --- Final --- Dictating Physician: MD ALONZO KEVIN Signed Date and Time: 10/03/2019 11:08 am Signed by: MD ALONZO KEVIN Transcribed Date and Time: 10/03/2019 11:09 [place] Patient Name: CHARLIE NGUYEN ---CT--- Exam Date/Time 10/03/2019 10:54:[address] Spine Cervical w/o Contrast Ordering Physician DO MORRIS DAVID J Accession Number [id number] CPT4 Codes 45528 () Reason For Exam Suspected overdose Report CT CERVICAL SPINE: CLINICAL INDICATION: Altered mental status, suspected overdose TECHNIQUE: Transaxial sequence through the cervical spine. Coronal and sagittal reconstructions included. COMPARISON: None FINDINGS: There is normal cervical lordosis. No prevertebral soft tissue swelling. Craniocervical and atlantoaxial articulations are intact. Predental interval is not widened. Vertebral body heights are maintained. No cervical spine fracture. No spondylolisthesis. There are multilevel degenerative changes of the cervical spine with intervertebral disc space narrowing, endplate osteophytes, and uncovertebral and facet joint hypertrophy, most pronounced at C3-C4 and C4- C5. No high-grade osseous encroachment of the central canal or neural foramina. Imaged neck soft tissues and lung apices are unremarkable. Partially imaged patchy opacity in the imaged right lung apex, which may represent aspiration versus pneumonia. IMPRESSION: 1. No cervical spine fracture. 2. Partially imaged patchy opacity in the right lung apex, which may represent aspiration versus pneumonia. Report Dictated on --- Final --- Dictating Physician: MD ALONZO KEVIN Signed Date and Time: 10/03/2019 11:08 am Signed by: MD ALONZO KEVIN Transcribed Date and Time: 10/03/2019 11:09 [place] Head WO Contraston 2019 Patient Name: CHARLIE NGUYEN ---CT--- Exam Date/Time 10/03/2019 10:54:[address] Head or Brain w/o Contrast Ordering Physician DO MORRIS DAVID J Accession Number [id number] CPT4 Codes 78290 () Reason For Exam AMS, suspected overdose Report CT HEAD: CLINICAL INDICATION: Altered mental status, suspected overdose TECHNIQUE: Transaxial CT sequence performed through the head with 3 mm reconstruction. Sagittal and Coronal reconstruction images included. COMPARISON: 02/19/2015 FINDINGS: Ventricles and sulci are normal in size and configuration for age. No extra-axial collection. No acute intracranial hemorrhage. No mass effect or midline shift. No CT evidence of an acute large territorial infarction. Imaged paranasal sinuses and mastoid air cells are well aerated. There is fluid in the naso-oropharynx, which is nonspecific in an intubated patient. Calvarium is unremarkable. IMPRESSION: No acute intracranial hemorrhage or mass effect. Report Dictated on --- Final --- Dictating Physician: MD ALONZO KEVIN Signed Date and Time: 10/03/2019 11:00 am Signed by: MD ALONZO KEVIN Transcribed Date and Time: 10/03/2019 11:01 [place], [facility] Incoming Radiology Results From [facility] - 10/03/2019 11:01 AM EDT Patient Name: CHARLIE NGUYEN ---CT--- Exam Date/Time 10/03/2019 10:54:[address] Head or Brain w/o Contrast Ordering Physician DO MORRIS DAVID J Accession Number [id number] CPT4 Codes 11053 () Reason For Exam AMS, suspected overdose Report CT HEAD: CLINICAL INDICATION: Altered mental status, suspected overdose TECHNIQUE: Transaxial CT sequence performed through the head with 3 mm reconstruction. Sagittal and Coronal reconstruction images included. COMPARISON: 02/19/2015 FINDINGS: Ventricles and sulci are normal in size and configuration for age. No extra-axial collection. No acute intracranial hemorrhage. No mass effect or midline shift. No CT evidence of an acute large territorial infarction. Imaged paranasal sinuses and mastoid air cells are well aerated. There is fluid in the naso-oropharynx, which is nonspecific in an intubated patient. Calvarium is unremarkable. IMPRESSION: No acute intracranial hemorrhage or mass effect. Report Dictated on --- Final --- Dictating Physician: MD ALONZO KEVIN Signed Date and Time: 10/03/2019 11:00 am Signed by: MD ALONZO KEVIN Transcribed Date and Time: 10/03/2019 11:01 [place] Comprehensive Metabolic Pane rafiq 10-03-2019 Albumin [Mass/Vol] 3.9 g/dL 3.5 - 5 g/dL [place] ALP [Catalytic activity/Vol] 132 U/L High 38 - 126 U/L [place] ALT [Catalytic activity/Vol] 20 U/L 0 - 34 U/L [place] Comment on above: The ALT test is perf ormed by an updated assay method. Please note that the reference intervals have been changed and are now sex specific. Anion gap [Moles/Vol] 10 mmol/L [place] AST [Catalytic activity/Vol] 27 U/L 15 - 46 U/L [place] Bilirubin Ql (U) 0.6 mg/dL 0.2 - 1.3 mg/dL [place] Calcium [Mass/Vol] 8.5 mg/dL 8.4 - 10. 4 mg/dL [place] Chloride [Moles/Vol] 96 mmol/L Low 98 - 10 7 mmol/L [place] CO2 [Moles/Vol] 33 mmol/L High 22 - 30 mmol/L [place] Creatinine [Mass/Vol] 0.87 mg/dL 0.52 - 1.25 mg/dL [place] EGFR IF NonAfrican [place] >60.0 >60 mL/min [place] Comment on above: Source- MDRD equatio n with creatinine calibration to IDMS(NKDEP) eGFR not recommended for drug dose adjustment GFR/1.73 sq M predicted among blacks MDRD (S/P/Bld) [Vol rate/Area] mL/min/{1.73_m2} >60 mL/min [place] Glucose [Mass/Vol] 127 mg/dL High 70 - 100 mg/dL [place] Potassium [Moles/Vol] 3.7 mmol/L 3.5 - 5.1 mmol/L [place] Protein [Mass/Vol] 7.5 g/dL 6.3 - 8.2 g/dL [place] Sodium [Moles/Vol] 139 mmol/L 135 - 145 mmol/L [place] Urea nitrogen [Mass/Vol] 37 mg/dL High 7 - 20 mg/d L [place] Ethanolon 10-03-2019 Ethanol Lvl <0.010 0 - 0.01 g/dL [place] Comment on above: NOTE: This result is for medical treatment only. Analysis performed using non-forensic procedures. Hemogram (CBC) w/Auto Diffon 10-03-2019 Absolute Baso # 0.1 10*3/uL 0 - 0.2 10*3/uL [place] Absolute Neut # 10.0 10*3/uL High 1.8 - 7 10*3/uL [place] Basophils/100 WBC (Bld) 0.9 % 0 - 2 % [place] Eosinophils (Bld) [#/Vol] 0.0 10*3/uL 0 - 0.5 10*3/uL [place] Eosinophils/100 WBC (Bld) 0.1 % Low 1 - 6 % [place] Erythrocyte distribution width (RBC) [Ratio] 15.2 % High 11.5 - 14.5 % [place] Granulocytes/100 WBC (Bld) 82.5 % High 40 - 80 % [place] Hematocrit (Bld) [Volume fraction] 43.1 % 35 - 47 % [place] Hemoglobin (Bld) [Mass/Vol] 14.1 g/dL 11.7 - 16 g/dL [place] Interpretation and review of laboratory results Abnormal [place] Lymphocytes (Bld) [#/Vol] 1.2 10*3/uL 1 - 4.3 10*3/uL [place] Lymphocytes/100 WBC (Bld) 9.7 % Low 20 - 40 % [place] MCH (RBC) [Entitic mass] 31.9 pg 26 - 34 pg [place] MCHC (RBC) [Mass/Vol] 32.8 % 32 - 36 % [place] MCV (RBC) [Entitic vol] 97.2 fL 79 - 98 fL [place] Monocytes (Bld) [#/Vol] 0.8 10*3/uL 0 - 0.8 10*3/uL [place] Monocytes/100 WBC (Bld) 6.8 % 2 - 10 % [place] Platelet mean volume (Bld) [Entitic vol] 9.0 fL 7.4 - 10.4 fL [place] Platelets (Bld) [#/Vol] 187 10*3/uL 140 - 440 10*3/uL [place] RBC (Bld) [#/Vol] 4.43 10*6/uL 3.8 - 5.2 10*6/uL [place] WBC (Bld) [#/Vol] 12.1 10*3/uL High 3.6 - 10.7 10*3/uL [place] Test Performed by [facility], [address], [place], [place] [address] [place] Intubationon 10-03-2019 Luli Morris DO 10/03/2019 10:49 AM Intubation Date/Time: 10/03/2019 8:09 AM Performed by: Luli Morris DO Authorized by: Luli Morris DO Consent: Consent obtained: Emergent situation Pre-procedure details: Patient status: Unresponsive Mallampati score: III Pretreatment medications: None Paralytics: Rocuronium Procedure details: Preoxygenation: Bag valve mask CPR in progress: no Intubation method: Oral Oral intubation technique: Video-assisted Tube size (mm): 7.5 Tube type: Cuffed Number of attempts: 1 Ventilation between attempts: yes Cricoid pressure: no Tube visualized through cords: yes Placement assessment: ETT to lip: 22 Tube secured with: ETT [place] Breath sounds: Equal and absent over the epigastrium Placement verification: chest rise, CXR verification, direct visualization, equal breath sounds, ETCO2 detector and tube exhalation CXR findings: ETT in proper place Post-procedure details: Patient tolerance of procedure: Tolerated well, no immediate complications Comments: A Aaron 3 blade was initially used to briefly visualize the vocal cords which were noted to be significantly anterior so, the video laryngoscope was utilized which successfully passed the ET tube times one attempt. [place] Lactic Acid, Plasmaon 2019 Lactate [Moles/Vol] 1.3 mmol/L 0.7 - 2 mmol/L [place] Lipaseon 10-03-2019 Lipase [Catalytic activity/Vol] 67 U/L 23 - 300 U/L [place] Magnesiumon 10-03-2019 Magnesium [Mass/Vol] 1.5 mg/dL Low 1.6 - 2 .3 mg/dL [place] Otheron 10-03-2019 Test Performed by [facility], [address], [place], [place] [address] [facility] [place] Test Performed by [facility], [facility] [address], [place], [place] [address] [facility] [place] Interpretation and review of laboratory results Abnormal [facility] [place] Test Performed by [facility], [facility] [address], [place], [place] [address] [facility] [place] POCT Arterialon 10-03-2019 Base Excess, Arterial 9.2 mmol/L High -3 - 3 mmol/L [facility] [place] HCO3, Arterial 33.7 mmol/L High 21 - 25 mmol/L [facility] [place] Interpretation and review of laboratory results Abnormal [facility] [place] Oxygen saturation in Blood 92.6 % Low 95 - 100 % [facility] [place] pCO2, Arterial 44.1 mm[Hg] 35 - 45 mm[Hg] [facility] [place] pH, Arterial 7.492 High [facility] [place] pO2, Arterial 60.8 mm[Hg] Low 80 - 100 mm[Hg] [facility] [place] Sodium [Moles/Vol] 60 mmol/L [facility] [place] Comment on above: Performed by CLIA ID : [id number] [place] TCO2, Arterial 35.1 mmol/L High 23 - 27 mmol/L [facility] [place] Test Performed by [facility], [facility] [address], [place], [place] [address] [facility] [place] Base Excess, Arterial 8.6 mmol/L High -3 - 3 mmol/L [facility] [place] HCO3, Arterial 34.4 mmol/L High 21 - 25 mmol/L [facility] [place] Interpretation and review of laboratory results Abnormal [facility] [place] Oxygen saturation in Blood 89.9 % Low 95 - 100 % [facility] [place] pCO2, Arterial 49.7 mm[Hg] High 35 - 45 mm[Hg] [facility] [place] pH, Arterial 7.448 [facility] [place] pO2, Arterial 56.9 mm[Hg] Low 80 - 100 mm[Hg] [facility] [place] Sodium [Moles/Vol] 40 mmol/L [facility] [place] Comment on above: Performed by CLIA ID : [id number] [place] TCO2, Arterial 35.9 mmol/L High 23 - 27 mmol/L [place] Test Performed by [facility], [address] POCT Glucoseon 10-03-2019 Glucose [Mass/Vol] 125 mg/dL High 70 - 100 mg/dL [place] Comment on above: Test performed by ucose meter. Results may be 10%-15% lower than serum/plasma values. (CLIA ID [id number]) Interpretation and review of laboratory results Abnormal [place] Test Performed by [facility], [address], [place], [place] [id number] [place] [address] SALICYLATE LEVELon 0 Salicylate Lvl 1.1 mg/dL 0 - 20 mg/dL [place] Test Performed by [facility], [address] [place], [place] [id number] [place] [address] Troponin x1on 10-03-2019 Troponin I.cardiac [Mass/Vol] ng/mL 0 - 0.034 ng/mL [place] Comment on above: . Urinalysison 10-03-2019 Appearance (U) Clear Clear [place] Comment on above: . Bacteria, UA Many Abnormal Negative /[HPF] [place] Comment on above: . Bilirubin Urine Negative Negative mg/dL [place] Comment on above: . Color (U) Yellow Lt. Yellow NA [place] Comment on above: . Glucose, Ur Normal Normal (<70) mg/dL [place] Comment on above: . Interpretation and review of laboratory results Abnormal [place] Ketones Ql (U) Negative Negative mg/dL [place] Comment on above: . LEUKOCYTES, UA 250 Abnormal Negative Simon/uL [place] Comment on above: . Mucous Threads Few Negative /[LPF] [place] Comment on above: . Nitrite, Urine Negative Negative NA [place] Comment on above: . Occult Blood,Urine Negative Negative mg/dL [place] Comment on above: . pH (U) 5.5 [pH] [place] Comment on above: . Protein (U) [Mass/Vol] 10 mg/dL Abnormal Negative [place] Comment on above: . RBC (U) [#/Vol] 0-2 0 - 2 /[HPF] [place] Comment on above: . Specific [place], Urine 1.024 M [place], [place] Comment on above: . Squam Epithel, UA 0-2 3 - 5 /[HPF] [place] Comment on above: . Urobilinogen, Urine Normal Normal ( 0-1) mg/dL [place] Comment on above: . WBC, UA 26-50 Abnormal 0 - 5 /[HPF] [place] Comment on above: . [facility], [address] [place], [place] [address] [place] Urine Drug Screenon 10-03-19 20 Amphetamines, urine Negative [place] Barbiturates, Ur Negative [place] Benzodiazepine Ur Qual Positive [place] Cocaine Metabolites, Ur Negative [place] Methadone, Urine Negative [place] Opiates, Urine Negative [place] Oxycodone Screen, Ur Negative [place] PCP, Urine Negative [place] Comment on above: The expected value f or all of the drugs listed above is Negative. The following drugs or drug groups have been screened for by Immunoassay at the following thresholds: Amphetamine class (1000 ng/mL), Barbiturates (200 ng/mL), Benzodiazepines (200 ng/mL), Cocaine (300 ng/mL), Methadone (300 ng/mL), Opiates (300 ng/mL), Oxycodone (100 ng/mL), and PCP (25 ng/mL). NOTE: These results are for medical treatment only. Analysis performed using non-forensic procedures. POSITIVE results are NOT confirmed by a more specific alternative method unless requested. If confirmation is needed, request confirmation under separate order. Test Performed by [facility], [address] [place], [place] [address] [place] XR CHEST PORTABLEon 10-03-19 Patient Name: CHARLIE NGUYEN ---Diagnostic Radiology--- Exam Date/Time 10/03/2019 08:25:00 EDT Exam CR Chest Portable Ordering Physician DO MORRIS DAVID J Accession Number [id number] CPT4 Codes 12849 () Reason For Exam Altered mental status, suspected overdose w/ Lyrica & amytripyline Report PORTABLE CHEST X-RAY CLINICAL INDICATION: Altered mental status, suspected overdose w/ Lyrica & amitriptyline A portable frontal view of the chest was obtained. COMPARISON: 12/14/2014 FINDINGS: Endotracheal tube terminates 2 cm above the shira. Heart size is within normal limits. The patient is rotated towards the right. There is coarsening of the interstitial lung markings, which is probably chronic. No focal consolidation is seen. There is no pleural effusion or pneumothorax. There are degenerative changes of the spine. An old appearing right upper rib fractures noted. IMPRESSION: Endotracheal tube terminates 2 cm above the shira. Mild chronic appearing interstitial changes within the lungs. No focal consolidation seen. Report Dictated on --- Final --- Dictating Physician: MD CARPENTER JONATHAN R Signed Date and Time: 10/03/2019 8:43 am Signed by: MD CARPENTER JONATHAN R Transcribed Date and Time: 10/03/2019 8:44 [place], [facility] Incoming Radiology Results From [facility] - 10/03/2019 8:44 AM EDT Patient Name: CHARLIE NGUYEN ---Diagnostic Radiology--- Exam Date/Time 10/03/2019 08:25:00 EDT Exam CR Chest Portable Ordering Physician DO MORRIS DAVID J Accession Number [id number] CPT4 Codes 85494 () Reason For Exam Altered mental status, suspected overdose w/ Lyrica & amytripyline Report PORTABLE CHEST X-RAY CLINICAL INDICATION: Altered mental status, suspected overdose w/ Lyrica & amitriptyline A portable frontal view of the chest was obtained. COMPARISON: 12/14/2014 FINDINGS: Endotracheal tube terminates 2 cm above the shira. Heart size is within normal limits. The patient is rotated towards the right. There is coarsening of the interstitial lung markings, which is probably chronic. No focal consolidation is seen. There is no pleural effusion or pneumothorax. There are degenerative changes of the spine. An old appearing right upper rib fractures noted. IMPRESSION: Endotracheal tube terminates 2 cm above the shira. Mild chronic appearing interstitial changes within the lungs. No focal consolidation seen. Report Dictated on --- Final --- Dictating Physician: MD CARPENTER JONATHAN R Signed Date and Time: 10/03/2019 8:43 am Signed by: MD CARPENTER JONATHAN R Transcribed Date and Time: 10/03/2019 8:44 [place] URINE CULTUREon 10-30-2018 Bacteria identified Cx Nom (U) ORGANISM 1: ESCHERICHIA COLI COLONY COUNT >100,000 ESCHERICHIA COLI: REACTION AMIKACIN <16 S AMPICILLIN <8 S CEFAZOLIN <8 S CEFEPIME <4 S CEFOTAXIME <2 S CEFTAZIDIME <1 S CEFUROXIME <4 S CIPROFLOXACIN <1 S GENTAMICIN <4 S IMIPENEM <1 S ERTAPENEM <2 S NITROFURANTOIN <32 S PIPERACILLIN/TAZOBACT AM <16 S TOBRAMYCIN <4 S TRIMETH/SULFA <2/38 S LEVOFLOXACIN <2 S MEROPENEM <1 S Normal [facility] Comment on above: Performed By: #### M [id number] #### [facility] [address] [place] [address] UA COMPLETEon 10-28-2018 UA LK ESTERASE 500 Normal NEGATIVE [facility] Comment on above: Performed By: #### L [id number] #### [facility] [address] [place] [address] UA NITRITE Positive Normal NEGATIVE [facility] Comment on above: Performed By: #### L [id number] #### [facility] [address] [place] [address] UA WBC 529 WBC/HPF High 0-5 [facility] Comment on above: Performed By: #### L [id number] #### [facility] [place] [address] Color Nom (U) Yellow Normal [facility] Comment on above: Performed By: #### L [id number] #### [facility] [address] [place] [address] Glucose mass conc (U) Negative Normal NORMAL [facility] Comment on above: Performed By: #### L [id number] #### [facility] [address] [place] [address] Mucus Ql (Urine sed) TRACE Normal NEGATIVE [facility] Comment on above: Performed By: #### L [id number] #### [facility] [address] [place] [address] SQUAMOUS EPIS 7 EPI/HPF High 0-5 [facility] Comment on above: Performed By: #### L [id number] #### [facility] [address] [place] [address] UA APPEARANCE Cloudy Normal CLEAR [facility] Comment on above: Performed By: #### L [id number] #### [facility] [address] [place], [place] [id number] UA BACTERIA 1+ /HPF Normal NONE [facility] Comment on above: Performed By: #### L [id number] #### [facility] [address] [place] [address] UA BILIRUBIN Negative Normal NEGATIVE [facility] Comment on above: Performed By: #### L [id number] #### [facility] [address] [place], [place] [id number] UA BLOOD SMALL Normal NEGATIVE [facility] Comment on above: Performed By: #### L [id number] #### [facility] [address] [place] [address] UA KETONE Negative Normal NEGATIVE [facility] Comment on above: Performed By: #### L [id number] #### [facility] [address] [place], [place] [id number] UA PH 6.0 Normal 5-6 [facility] Comment on above: Performed By: #### L [id number] #### [facility] [address] [place] [address] UA PROTEIN Negative Normal NEGATIVE [facility] Comment on above: Performed By: #### L [id number] #### [facility] [address] [place] [address] UA RBC 3 RBC/HPF Normal 0-3 [facility] Comment on above: Performed By: #### L [id number] #### [facility] [address] [place] [address] UA SPEC GRAV 1.015 Normal 1.005-1.030 [facility] Comment on above: Performed By: #### L [id number] #### [facility] [address] [place] [address] UA UROBILINOGEN Negative Normal NORMAL [facility] Comment on above: Performed By: #### L 600.19903 #### [facility] [address] [place] [address] WBC CLUMPS MANY Normal [facility] Comment on above: Performed By: #### L [id number] #### [facility] [address] [place] [address] Vital Signs Date Time Vital Sign Value Performing Clinician Facility 11-17-2022 15:49-0400 Diastolic blood pressure 80 mm[Hg] Marc Goodman DO Work Phone: [facility] 11-17-2022 15:49-0400 Heart rate 77 /min Marc Goodman DO Work Phone: [facility] 11-17-2022 15:49-0400 Respiratory rate 20 /min Marc Goodman DO Work Phone: [employer] 11-17-2022 15:49-0400 SaO2% (BldA) [Mass fraction] 91 % Marc Goodman DO Work Phone: [facility] 11-17-2022 15:49-0400 Systolic blood pressure 114 mm[Hg] Marc Goodman DO Work Phone: [facility] 11-17-2022 08:35-0400 Body mass index (BMI) [Ratio] 34.87 kg/m2 Marc Goodman DO Work Phone: [facility] [employer] 11-17-2022 08:35-0400 Body temperature 96.3 [degF] Marc Goodman DO [facility] [employer] 11-17-2022 08:35-0400 Body weight 113.4 kg Marc Goodman DO Work Phone: [facility] 01-15-2021 13:32-0400 Diastolic blood pressure 65 mm[Hg] Nehal Madden DO Work Phone: [employer] Work Phone: 01-15-2021 13:32-0400 Heart rate 78 /min Nehal Madden DO Work Phone: [employer] Work Phone: 01-15-2021 13:32-0400 SaO2% (BldA) [Mass fraction] 91 % Nehaleliel Madden DO Work Phone: [employer] Work Phone: 01-15-2021 13:32-0400 Systolic blood pressure 103 mm[Hg] Nehaleliel Madden DO Work Phone: [employer] Work Phone: 01-15-2021 11:46-0400 Body height 180.3 cm Nehal Chano DO Work Phone: [employer] Work Phone: 01-15-2021 11:46-0400 Body mass index (BMI) [Ratio] 32.08 kg/m2 [employer] Work Phone: [employer] Work Phone: 01-15-2021 11:46-0400 Body temperature 99.39 [degF] [employer] DO Work Phone: [employer] Work Phone: 01-15-2021 11:46-0400 Body weight 104.33 kg [employer] Work Phone: [facility] Work Phone: 01-15-2021 11:46-0400 Respiratory rate 16 /min [employer] Work Phone: [employer] Work Phone: 01-06-2021 02:54-0400 Diastolic blood pressure 76 mm[Hg] Erika Hudson MD Work Phone: [employer] Work Phone: 01-06-2021 02:54-0400 Heart rate 62 /min Erika Hudson MD Work Phone: [employer] Work Phone: 01-06-2021 02:54-0400 Respiratory rate 16 /min Erika Hudson MD Work Phone: [employer] Work Phone: 01-06-2021 02:54-0400 SaO2% (BldA) [Mass fraction] 95 % Erika Hudson MD Work Phone: [facility] Work Phone: 01-06-2021 02:54-0400 Systolic blood pressure 102 mm[Hg] Erika Hudson MD Work Phone: [facility] Work Phone: 01-05-2021 19:10-0400 Body height 180.3 cm E[facility] MD [facility] Work Phone: 01-05-2021 19:10-0400 Body mass index (BMI) [Ratio] 32.08 kg/m2 Erika Hudson MD Work Phone: [facility] Work Phone: 01-05-2021 19:10-0400 Body temperature 100.51 [degF] Erika Hudson MD [facility] Phone[facility] Work Phone: 01-05-2021 19:10-0400 Body weight 104.33 kg Erika Hudson MD [facility] Phone: [facility] Work Phone: 12-18-2020 23:25-0400 Diastolic blood pressure 66 mm[Hg] Jorge Mejia MD Work Phone: [facility] Work Phone: 12-18-2020 23:25-0400 Heart rate 65 /min Jorge Mejia MD Work Phone: [facility] Work Phone: 12-18-2020 23:25-0400 Respiratory rate 16 /min Jorge Mejia MD Work Phone: [facility] Work Phone: 12-18-2020 23:25-0400 SaO2% (BldA) [Mass fraction] 91 % Jorge Mejia MD Work Phone: [facility] Work Phone: 12-18-2020 23:25-0400 Systolic blood pressure 100 mm[Hg] Jorge Mejia MD [facility] Phone: [facility] Work Phone: 12-18-2020 20:35-0400 Body height 180.3 cm Jorge Mejia MD Work Phone: [facility] Work Phone: 12-18-2020 20:35-0400 Body mass index (BMI) [Ratio] 32.08 kg/m2 Jorge Mejia MD Work Phone: [facility] Work Phone: 12-18-2020 20:35-0400 Body temperature 99.1 [degF] Jorge Mejia MD Work Phone: [facility] Work Phone: 12-18-2020 20:35-0400 Body weight 104.33 kg Jorge Mejia MD Work Phone: [facility] Work Phone: 02-03-2020 15:38-0400 Body Temperature 97.3 [degF] [facility], [place] 02-03-2020 15:38-0400 BP Diastolic 62 mm[Hg] [facility], [place] 02-03-2020 15:38-0400 BP Systolic 107 mm[Hg] [facility], [place] 02-03-2020 15:38-0400 Pulse (Heart Rate) 59 /min [facility], [place] 02-03-2020 15:38-0400 Pulse Oximetry 95 % [facility], [place] 02-03-2020 15:38-0400 Respiratory Rate 16 /min [facility], [place] 02-03-2020 05:59-0400 BMI (Body Mass Index) 33.64 kg/m2 [facility], [place] 02-03-2020 05:59-0400 Body weight 109.41 kg [facility], [place] 01-30-2020 14:03-0400 Height 180.3 cm [facility], [place] 11-04-2019 20:50-0400 Body Temperature 98.01 [degF] [facility] [place] 11-04-2019 20:50-0400 BP Diastolic 81 mm[Hg] [facility] [place] 11-04-2019 20:50-0400 BP Systolic 119 mm[Hg] [facility] [place] 11-04-2019 20:50-0400 Pulse (Heart Rate) 91 /min [facility] [place] 11-04-2019 20:50-0400 Pulse Oximetry 94 % [facility] [place] 11-04-2019 20:50-0400 Respiratory Rate 20 /min [facility] [place] 11-04-2019 13:50-0400 BMI (Body Mass Index) 41.84 kg/m2 Sulaiman Valencia [facility], [place] 11-04-2019 13:50-0400 Body weight 136.08 kg [facility] [place] 11-04-2019 13:50-0400 Height 180.3 cm [facility] [place] 10-25-2019 08:08-0400 Body Temperature 98.01 [degF] L[facility], [place] 10-25-2019 08:08-0400 BP Diastolic 78 mm[Hg] Luli [facility] , [place] 10-25-2019 08:08-0400 BP Systolic 116 mm[Hg] [place] 10-25-2019 08:08-0400 Pulse (Heart Rate) 95 /min Luli [facility], [place] 10-25-2019 08:08-0400 Pulse Oximetry 93 % Luli [facility] , [place] 10-25-2019 08:08-0400 Respiratory Rate 18 /min Luli [facility], [place] 10-13-2019 05:24-0400 BMI (Body Mass Index) 39.87 kg/m2 Luli [facility], [place] 10-13-2019 05:24-0400 Body weight 122.47 kg Luli [place] 10-05-2019 07:32-0400 Height 175.3 cm Luli [facility] [place] [facility] [place] Encounters Encounter Date Encounter Type Care Provider Facility Start: 10-17-2024 End: 10-20-2024 ambulatory MORENO OATES [facility] Start: 10-15-2024 ambulatory Ender RICKS Faci lity:[facility] Start: 10-14-2024 End: 10-14-2024 Refill Moreno Oates MD Work Phone: Family Practice Comment on above: Refill Request Start: 09-16-2024 End: 09-16-2024 Refill Moreno Oates MD Work Phone: Family Practice Comment on above: Refill Request Start: 09-09-2024 End: 09-09-2024 ambulatory Ender RICKS Facility:[facility] Start: 08-18-2024 End: 08-18-2024 Refill Moreno Oates MD Work Phone: Family Practice Comment on above: Refill Request Start: 08-10-2024 End: 08-10-2024 ambulatory Ender Oates MD Work Phone: [facility] Work Phone: Start: 08-10-2024 End: 08-10-2024 Departed Referred Royer Reagan -[place] [address] Start: 08-10-2024 End: 08-10-2024 ambulatory Royer RICKS Facility:[facility] Start: 07-22-2024 End: 07-22-2024 Refill Moreno Otaes MD Work Phone: Family Practice Comment on above: Refill Request Start: 07-18-2024 End: 07-18-2024 Telephone encounter Moreno Oates MD Work Phone: Family Practice Comment on above: Received Outside Med ical Records ([facility] ([facility] Labs 07/12/2024) Start: 07-12-2024 ambulatory Ender RICKS Faci lity:[facility] Start: 07-12-2024 [facility] [place] [facility] [address] Start: 07-04-2024 ambulatory Royer RICKS Facil ity:[facility] Start: 07-04-2024 Registered Referred Royer Reagan -[facility] [place] [facility] [address] Start: 06-23-2024 End: 06-23-2024 Refill Moreno Oates MD Work Phone: Family Practice Comment on above: Refill Request Start: 05-23-2024 End: 05-24-2024 Refill Moreno Oates MD Work Phone: Family Practice Comment on above: Refill Request Start: 05-11-2024 End: 05-11-2024 Departed Referred Ender Oates MD -[facility] [place] [address] Start: 05-11-2024 End: 05-11-2024 ambulatory Ender RICKS Facility:[facility] Start: 04-22-2024 End: 04-22-2024 Refill Moreno Oates MD Work Phone: Family Practice Comment on above: Refill Request Start: 04-21-2024 End: 04-22-2024 Refill Moreno Oates MD Work Phone: Family Practice Comment on above: Refill Request Start: 04-12-2024 End: 04-12-2024 Telephone encounter Moreno Oates MD Work Phone: Family Practice Comment on above: Received Outside Med ical Records ([facility] 04/11/2024) Start: 04-11-2024 End: 04-11-2024 ambulatory Ender RICKS Facility:[facility] Start: 03-31-2024 End: 03-31-2024 Refill Moreno Oates MD Work Phone: Family Practice Comment on above: Refill Request Start: 03-25-2024 End: 03-25-2024 Refill Moreno Oates MD Work Phone: Family Practice Comment on above: Refill Request Start: 03-24-2024 End: 03-24-2024 Refill Moreno Oates MD Work Phone: Family Practice Comment on above: Refill Request Start: 03-24-2024 End: 03-24-2024 ambulatory Ender RICKS Facility:[facility] Start: 03-17-2024 End: 03-17-2024 Telephone encounter Moreno Oates MD Work Phone: Family Practice Comment on above: Orders ([facility] [place]) Start: 03-10-2024 End: 03-10-2024 Telephone encounter Moreno Oates MD Work Phone: Family Practice Comment on above: Outside Labs Results ([facility]) Start: 03-10-2024 End: 03-10-2024 ambulatory Royer RICKS Facility:[facility] Start: 02-29-2024 End: 02-29-2024 Refill Moreno Oates MD Work Phone: Family Practice Comment on above: Opened In Error Start: 02-26-2024 End: 02-26-2024 Refill Moreno Oates MD Work Phone: Family Practice Comment on above: Refill Request Start: 02-09-2024 ambulatory Royer RICKS Facil ity:[facility] Start: 01-27-2024 End: 01-28-2024 Refill Moreno Oates MD Work Phone: Family Practice Comment on above: Refill Request Start: 12-30-2023 Refill Moreno peterson MD Work Phone: Family Practice Comment on above: Refill Request Start: 12-29-2023 End: 01-20-2024 Telephone encounter Moreno Oates MD Work Phone: Family Practice Comment on above: Medication Request Start: 12-09-2023 ambulatory Ender RICKS Faci lity:[facility] Start: 11-27-2023 Telephone encounter Moreno Oates MD Work Phone: Family Practice Start: 11-10-2023 Telephone encounter Moreno Oates MD Work Phone: Family Medicine Comment on above: Received Outside Med ical Records ([facility] 11/09/2023) Start: 11-09-2023 ambulatory Ender Grcaie OLS Faci lity:[facility] Start: 10-27-2023 Refill Moreno peterson MD Work Phone: Family Practice Comment on above: Refill Request Start: 10-12-2023 Telephone encounter Moreno Oates MD Work Phone: Family Practice Comment on above: Outside Lab Results ([facility] 10/12/23) Start: 10-07-2023 Refill Moreno peterson MD Work Phone: Family Practice Comment on above: Refill Request Start: 09-25-2023 Refill Moreno peterson MD Work Phone: Family Practice Comment on above: Refill Request Start: 09-11-2023 Telephone encounter Moreno Oates MD Work Phone: Family Practice Comment on above: Received Outside Med ical Records ([facility] Order to increase Zofran from 4 mg to 8 mg Q8 hr prn) Start: 08-11-2023 Telephone encounter Moreno Oates MD Work Phone: Family Practice Comment on above: Outside Labs Results ([facility]/ [facility]) Start: 08-10-2023 End: 08-10-2023 ambulatory [facility] Work Phone: Start: 08-10-2023 End: 08-10-2023 Departed Referred [facility] [place] [address] Start: 07-31-2023 Refill Moreno peterson MD Work Phone: Family Practice Comment on above: Refill Request Start: 07-30-2023 Refill Moreno peterson MD Work Phone: Family Practice Comment on above: Refill Request Start: 07-13-2023 End: 07-13-2023 Departed Referred [facility] - [address] Start: 06-08-2023 End: 06-08-2023 ambulatory [facility] Work Phone: Start: 06-08-2023 End: 06-08-2023 Departed Referred [facility] - [address] Start: 05-11-2023 Telephone encounter Moreno Oates MD Work Phone: Family Practice Comment on above: Received Outside Med ical Records ([facility] ([facility]) Labs 05/11/2023) Start: 05-11-2023 End: 05-11-2023 Departed [facility] [address] Start: 04-29-2023 Telephone encounter Moreno Oates MD Work Phone: Family Practice Start: 04-13-2023 Telephone encounter Moreno Oates MD Work Phone: Family Practice Comment on above: Received Outside Med ical Records ([facility] ([facility]) Labs 04/06/2023) Start: 04-13-2023 End: 04-13-2023 ambulatory [facility] Work Phone: Start: 04-13-2023 End: 04-13-2023 Departed Referred [facility] [address] Start: 04-06-2023 Telephone encounter Moreno Oates MD Work Phone: Family Practice Comment on above: Orders Start: 03-30-2023 Telephone encounter Moreno Oates MD Work Phone: Family Practice Start: 03-09-2023 End: 03-09-2023 ambulatory [facility] Work Phone: Start: 03-09-2023 End: 03-09-2023 Departed Referred [facility] [address] Start: 03-07-2023 End: 03-07-2023 Departed Referred [facility] - [address] Start: 02-13-2023 ambulatory Moreno peterson MD Work Phone: Family Practice Comment on above: Nurse Triage Call Start: 02-12-2023 Telephone encounter Moreno Oates MD Work Phone: Family Practice Comment on above: Received Outside Med ical Records (Lab results 02/09/23 [facility]) Start: 02-11-2023 Telephone encounter Moreno Oates MD Work Phone: Family Practice Comment on above: Medication Request Start: 02-09-2023 End: 02-09-2023 ambulatory [facility] Work Phone: Start: 02-09-2023 End: 02-09-2023 Departed Referred [facility] - [address] Start: 02-09-2023 Registered Referred [facility] - [address] Start: 01-31-2023 Telephone encounter Moreno Oates MD Work Phone: Family Practice Start: 01-26-2023 Telephone encounter Moreno Oates MD Work Phone: Family Practice Comment on above: Received Outside Med ical Records ([facility] Lower extremity venous duplex 01/21/2023) Start: 01-21-2023 End: 01-22-2023 ambulatory KENJI PHILLIP DO~[id number] [facility] Start: 01-13-2023 Refill Moreno peterson MD Work Phone: Family Practice Comment on above: Refill Request Start: 01-12-2023 Telephone encounter Moreno Oates MD Work Phone: Family Practice Comment on above: Received Outside Med ical Records (Lab results from [facility]/ [facility] Lab) Start: 01-12-2023 End: 01-12-2023 ambulatory [facility] Work Phone: Start: 01-12-2023 End: 01-12-2023 Departed Referred [facility] - [address] Start: 01-01-2023 Refill Moreno peterson MD Work Phone: Family Practice Comment on above: Refill Request Start: 12-31-2022 Telephone encounter Moreno Oates MD Work Phone: Family Practice Comment on above: Received Outside Med ical Records ([facility] ([facility]) Labs 12/30/2022) Start: 12-30-2022 End: 12-30-2022 Departed Referred [facility] - [address] Start: 12-30-2022 Registered Referred [facility] - [address] Start: 12-29-2022 ambulatory Moreno peterson MD Work Phone: [facility] Comment on above: Nurse Triage Call Start: 12-16-2022 Telephone encounter Moreno Oates MD Work Phone: [facility] Comment on above: Received Outside Med ical Records ([facility] Vascular Surgery 12/15/22) Start: 12-09-2022 End: 12-09-2022 ambulatory [facility] Work Phone: Start: 12-09-2022 End: 12-09-2022 Departed Referred [facility] - [address] Start: 12-01-2022 Telephone encounter Moreno Oates MD Work Phone: [facility] Comment on above: Orders Start: 11-27-2022 Registered Referred [facility] - [address] Start: 11-21-2022 Telephone encounter Moreno Otaes MD Work Phone: [facility] Comment on above: Orders ([facility] tient having extreme pain in left leg asking for an increase in percocet to every 4 hours.) Start: 11-17-2022 End: 11-17-2022 Emergency department patient visit Marc Goodman Work Phone: [facility] Comment on above: Left leg swelling (P rimary Dx) Start: 11-12-2022 ambulatory Moreno peterson MD Work Phone: Internal Medicine [place] Start: 11-10-2022 End: 11-10-2022 ambulatory [facility] Work Phone: Start: 11-10-2022 End: 11-10-2022 Departed Referred [facility] - [address] Start: 11-06-2022 Telephone encounter Moreno Oates MD Work Phone: Family Practice Comment on above: Received Outside Med ical Records ([facility] portable x-ray service ([facility]) Chest x-ray 11/04/2022) Start: 10-10-2022 Telephone encounter Moreno Oates MD Work Phone: Family [facility] Comment on above: Orders Start: 10-06-2022 Telephone encounter Moreno Oates MD Work Phone: Family Practice Comment on above: Received Outside Med ical Records ([facility] ([facility]) Labs) Start: 10-06-2022 End: 10-06-2022 Departed Referred [facility] [address] Start: 10-01-2022 Telephone encounter Moreno Oates MD Work Phone: Family [facility] Comment on above: Refill Request Start: 09-24-2022 Telephone encounter Moreno Oates MD Work Phone: Family [facility] Comment on above: Clinical Symptoms Start: 09-19-2022 Telephone encounter Moreno Oates MD Work Phone: Family [facility] Comment on above: Medication Request ( [facility] ) Start: 09-08-2022 End: 09-08-2022 ambulatory [facility] Work Phone: Start: 09-08-2022 End: 09-08-2022 Departed Referred [facility] 300 Start: 09-08-2022 Registered Referred [facility] 300 Start: 09-05-2022 Telephone encounter Moreno Oates MD Work Phone: Family [facility] Comment on above: Medication Request ( [facility] ) Start: 08-29-2022 Telephone encounter Moreno Oates MD Work Phone: Family [facility] Comment on above: Medication Request ( [facility] Oxycodone apap 5-325 mg 1 tab every 6 hours ) Start: 08-28-2022 Telephone encounter Moreno Oates MD Work Phone: Family [facility] Comment on above: Outside Lab Results ([facility]) Start: 08-28-2022 End: 08-28-2022 ambulatory [facility] Work Phone: Start: 08-28-2022 End: 08-28-2022 Departed Referred [facility] - [address] Start: 08-28-2022 Registered Referred [facility] 300 Start: 08-11-2022 End: 08-11-2022 Patient encounter procedure Debbie Batista PA-C Work Phone: Orthopaedics Comment on above: Status post total le ft knee replacement (Primary Dx); S/P revision of total knee, right Start: 08-11-2022 End: 08-11-2022 ambulatory [facility] Work Phone: Start: 08-11-2022 End: 08-11-2022 Departed Referred [facility] [address] Start: 08-08-2022 End: 08-08-2022 [facility] Work Phone: Start: 08-08-2022 End: 08-08-2022 Departed Referred [facility] [address] Start: 08-08-[address] [facility] [address] Start: 07-30-2022 Telephone encounter Moreno Oates MD Work Phone: Family [facility] Comment on above: Received Outside Med ical Records ([place] [facility] ) Start: 07-29-2022 Refill Moreno peterson MD Work Phone: Family Practice Comment on above: Refill Request Start: 07-25-2022 Telephone encounter Moreno Oates MD Work Phone: Family Practice Comment on above: Orders Start: 07-21-2022 Refill Moreno peterson MD Work Phone: Family Practice Comment on above: Refill Request Start: 07-16-2022 Telephone encounter Moreno Oates MD Work Phone: Family Practice Comment on above: Outside Lab Results ([facility] 07/14/22) Start: 07-14-2022 End: 07-14-2022 Departed Referred [facility] - [address] Start: 07-06-2022 ambulatory Moreno peterson MD Work Phone: Family Practice Start: 07-05-2022 Telephone encounter Moreno Oates MD Work Phone: Family Practice Comment on above: Patient Update ([facility]) Start: 06-25-2022 Refill Moreno peterson MD Work Phone: Family Practice Comment on above: Refill Request Start: 06-18-2022 Telephone encounter Moreno Oates MD Work Phone: Family Practice Comment on above: Orders ([facility]) Start: 06-12-2022 ambulatory UNKNOWN PROVIDER Facili ty:[facility] Start: 06-12-2022 End: 06-12-2022 Subsequent hospital visit by physician Ct [facility] Radiology Comment on above: Pain due to internal orthopedic prosthetic devices, implants and grafts, initial encounter ([facility]) [T84.84XA] Start: 06-09-2022 End: 06-09-2022 ambulatory [facility] Work Phone: Start: 06-09-2022 End: 06-09-2022 Departed Referred [facility] - [address] Start: 06-09-2022 Registered Referred [facility] - [address] Start: 05-22-2022 Telephone encounter Moreno Oates MD Work Phone: [facility] Comment on above: Outside Labs Results ([facility]) Start: 05-22-2022 End: 05-22-2022 ambulatory [facility] Work Phone: Start: 05-22-2022 End: 05-22-2022 Departed Referred [facility] - [address] Start: 05-22-2022 Registered Referred [facility] - [address] Start: 05-21-2022 End: 05-21-2022 Orders Only Debbie Batista PA-C Work Phone: Orthopaedics Comment on above: Status post total le ft knee replacement (Primary Dx) Status post total le ft knee replacement [Z96.652] Start: 05-15-2022 End: 05-15-2022 ambulatory [facility] Work Phone: Start: 05-15-2022 End: 05-15-2022 Departed Referred [facility] - [address] Start: 05-15-2022 Registered Referred [facility] - [address] Start: 05-12-2022 Telephone encounter Moreno Oates MD Work Phone: Family Medicine Comment on above: Medication Request ( [facility] 05/12/2022 Oxycodone/apap) Start: 05-10-2022 End: 05-10-2022 ambulatory [facility] Work Phone: Start: 05-10-2022 End: 05-10-2022 Departed Referred [facility] - [address] Start: 05-10-2022 Registered Referred [facility] - [address] Start: 05-01-2022 End: 05-01-2022 ambulatory [facility] Work Phone: Start: 05-01-2022 End: 05-01-2022 Departed Referred [facility] - [address] Start: 04-14-2022 End: 04-14-2022 Departed Referred [facility] - [address] Start: 03-24-2022 Telephone encounter Moreno Oates MD Work Phone: Family Practice Comment on above: medication orders ([facility]) Start: 03-19-2022 ambulatory Moreno Oates [facility] Start: 03-18-2022 Refill Moreno peterson MD Work Phone: Family Practice Comment on above: Opened In Error Orders (Mammogram or ders [facility]) Start: 03-17-2022 Telephone encounter Moreno Oates MD Work Phone: Family Practice Comment on above: Diagnositic mammogra m and US orders Start: 03-11-2022 Telephone encounter Moreno Oates MD Work Phone: Family Practice Comment on above: Refill Request Start: 03-10-2022 Telephone encounter Moreno Oates MD Work Phone: Family Practice Comment on above: Orders ([facility] Outside Lab Results ([facility]) Start: 03-10-2022 End: 03-10-2022 [facility] [address] Start: 03-10-2022 Registered Referred [facility] [address] Start: 03-06-2022 Telephone encounter Moreno Oates MD Work Phone: Family Medicine [place] Comment on above: Refill Request (Futu re fill from the pharmacy ) Start: 02-13-2022 Telephone encounter Moreno Oates MD Work Phone: Family Practice Comment on above: Orders ([facility]) Start: 02-12-2022 Telephone encounter Moreno Oates MD Work Phone: Family Medicine Comment on above: Refill Request ([facility]) Start: 02-10-2022 Telephone encounter Moreno Oates MD Work Phone: Family Practice Comment on above: Outside Lab Results ([facility]) Start: 02-10-2022 End: 02-10-2022 ambulatory [facility] Work Phone: Start: 02-10-2022 End: 02-10-2022 Dep[facility] [address] Start: 02-05-2022 Telephone encounter Moreno Oates MD Work Phone: Family Practice Comment on above: Orders (Medication [facility]) Start: 01-07-2022 Telephone encounter Moreno Oates MD Work Phone: Family Practice Comment on above: Refill Request Start: 01-06-2022 End: 01-06-2022 ambulatory [facility] Work Phone: Start: 01-06-2022 End: 01-06-2022 Departed Referred [facility] - [address] Start: 01-02-2022 ambulatory Moreno Oates [facility] Start: 12-30-2021 Telephone encounter Moreno Oates MD Work Phone: Family Practice Comment on above: Orders (prescription request) Start: 12-27-2021 End: 12-27-2021 Departed Referred [facility] - [address] Start: 12-23-2021 Telephone encounter Moreno Oates MD Work Phone: Family Practice Comment on above: Orders (Controlled m edication request from [facility]) Orders (Pharmacy Rec ommendation [facility]) Start: 12-09-2021 Telephone encounter Moreno Oates MD Work Phone: Family Practice Comment on above: Outside Lab Results ([facility]) Start: 12-09-2021 Registered Referred [facility] - [address] Start: 12-03-2021 Refill Moreno peterson MD Work Phone: Family Practice Comment on above: Refill Request Start: 11-25-2021 Telephone encounter Moreno Oates MD Work Phone: Family Practice Comment on above: Orders ([facility]) Start: 11-21-2021 Telephone encounter Moreno Oates MD Work Phone: Family Practice Comment on above: Patient Update ([facility]) Start: 11-19-2021 Telephone encounter Moreno Oates MD Work Phone: Family Practice Comment on above: Medication Problem Refill Request; Refi ll Request Start: 11-18-2021 Telephone encounter Moreno Oates MD Work Phone: Family Practice Comment on above: Orders (1 day medica tion refill) Start: 11-11-2021 Registered Referred [facility] 300 Start: 11-08-2021 End: 11-08-2021 Departed Referred [facility] 300 Start: 10-29-2021 Telephone encounter Moreno Oates MD Work Phone: Family Practice Comment on above: Orders (prescription signed off by PCP and faxed to [facility] ) Start: 10-22-2021 Refill Moreno peterson MD Work Phone: Family Practice Comment on above: Refill Request ([facility] ) Start: 10-09-2021 Telephone encounter Moreno Oates MD Work Phone: Family Practice Comment on above: Patient Question Start: 10-08-2021 Telephone encounter Moreno Oates MD Work Phone: Family Practice Comment on above: Orders (request for sign off on medication from PCP from [facility]. ) Start: 10-07-2021 Telephone encounter Moreno Oates MD Work Phone: Family Practice Comment on above: Outside Lab Results (from [facility]) Start: 10-07-2021 End: 10-07-2021 Departed Referred [facility] 300 Start: 10-04-2021 Refill Moreno peterson MD Work Phone: Family Medicine Comment on above: Refill Request ([facility]) Start: 09-27-2021 Refill Moreno peterson MD Work Phone: Family Medicine Comment on above: Refill Request Start: 09-09-2021 End: 09-09-2021 Departed Referred [facility] [address] Start: 09-09-2021 Registered Referred [facility] 300 Start: 08-27-2021 Telephone encounter Moreno Oates MD Work Phone: Family Practice Comment on above: Orders ([facility] 08/26/2021) Start: 08-26-2021 Refill Moreno peterson MD Work Phone: [facility] Start: 08-08-2021 End: 08-08-2021 Departed [facility] [address] Start: 08-08-2021 Registered Referred [facility] [address] Start: 07-23-2021 End: 07-23-2021 Departed Referred [facility] [address] Start: 07-23-2021 [facility] Start: 07-16-2021 End: 07-16-2021 Departed Referred [facility] [address] Start: 07-16-2021 [facility] Start: 07-09-2021 End: 07-09-2021 [facility] Start: 07-09-2021 [facility] Start: 07-08-2021 Telephone encounter Moreno Oates MD Work Phone: [facility] Comment on above: Received Outside Med ical Records ([facility] 07/05/2021 signature) Start: 07-02-2021 End: 07-02-2021 [facility] Start: 07-02-2021 [facility] Start: 06-25-2021 End: 06-25-2021 [facility] Start: 06-25-2021 [facility] Start: 06-18-2021 End: 06-18-2021 [facility] Start: 06-18-2021 [facility] Start: 06-11-2021 End: 06-11-2021 [facility] Start: 06-04-2021 End: 06-04-2021 Departed Referred [facility] - [address] Start: 05-28-2021 Registered Referred [facility] - [address] Start: 01-15-2021 End: 01-15-2021 Emergency department patient visit Nehal Madden Work Phone: [facility] Comment on above: Chronic pain of righ t knee (Primary Dx) Start: 01-05-2021 End: 01-06-2021 Emergency department patient visit Erika Hudson MD Work Phone: [facility] Emergency Dept Start: 12-18-2020 End: 12-19-2020 Emergency department patient visit Jorge Mejia MD Work Phone: [facility] ED Comment on above: Cellulitis of right lower extremity (Primary Dx) Start: 01-27-2020 End: 02-03-2020 Evaluation and management of inpatient Alexandro Ackerman Work Phone: [facility] 2E TELEMETRY Comment on above: Generalized weakness (Primary Dx); Hypokalemia; Chronic pain of right knee; Inability to ambulate due to knee; Misuse of prescription only drugs (HCC); Benzodiazepine dependence (HCC); Contusion of right knee, initial encounter Start: 11-04-2019 End: 11-04-2019 Evaluation and management of inpatient Sulaiman Ricks Work Phone: [facility] H6 TELEMETRY Comment on above: 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, initial encounter (HCC) (Primary Dx) Start: 10-03-2019 End: 10-25-2019 Evaluation and management of inpatient Luli Morris Work Phone: [facility] 4S TELEMETRY Comment on above: Intentional drug ove rdose, initial encounter (HCC) (Primary Dx); Acute hypoxemic respiratory failure (HCC); Leukocytosis, unspecified type Procedures Date Procedure Procedure Detail Performing Clinician Start: 07-12-2024 Comprehensive metabo lic 1999 panel - Serum or Plasma [facility] Provider Start: 04-11-2024 CBC panel - Blood by Automated count [facility] Provider Start: 04-11-2024 Comprehensive metabo lic 2000 panel - Serum or Plasma [facility] Provider Start: 11-09-2023 CBC panel - Blood by Automated count [facility] Provider Start: 11-09-2023 Comprehensive metabo lic 2000 panel - Serum or Plasma [facility] Provider Start: 05-11-2023 CBC panel - Blood by Automated count [facility] Provider Start: 05-11-2023 Comprehensive metabo lic 2000 panel - Serum or Plasma [facility] Provider Start: 04-13-2023 BMP - EXTERNAL [facility] Prov ider Start: 04-06-2023 CBC panel - Blood by Automated count [facility] Provider Start: 03-07-2023 Urine culture Start: 12-30-2022 Bacteria identified in Blood by Culture Start: 12-30-2022 CBC panel - Blood by Automated count [facility] Provider Start: 12-30-2022 Comprehensive metabo lic 2000 panel - Serum or Plasma [facility] Provider Start: 12-09-2022 CBC panel - Blood by Automated count [facility] Provider Start: 12-09-2022 Comprehensive metabo lic 2000 panel - Serum or Plasma [facility] Provider Start: 11-17-2022 Ct angiography chest w/contrast/noncontrast Marc Orionkoerma DO Work Phone: Start: 11-17-2022 Dup-scan xtr veins unilateral/limited study [facility] Work Phone: Start: 11-17-2022 Basic metabolic pane l calcium total Marc [facility] DO Work Phone: Start: 11-17-2022 Ecg routine ecg w/le ast 12 lds trcg only w/o i&r Marc Powerrakola DO Work Phone: Start: 10-06-2022 Comprehensive metabo lic 2000 panel - Serum or Plasma [facility] Provider Start: 09-08-2022 CBC panel - Blood by Automated count [facility] Provider Start: 09-08-2022 Comprehensive metabo lic 2000 panel - Serum or Plasma [facility] Provider Start: 08-28-2022 CBC panel - Blood by Automated count [facility] Provider Start: 08-11-2022 Comprehensive metabo lic 2000 panel - Serum or Plasma [facility] Provider Start: 05-21-2022 Radiologic examinati on knee 3 views Debbie Batista PA-C Work Phone: Start: 01-15-2021 Ct angiography chest w/contrast/noncontrast Nehal Madden DO Work Phone: Start: 01-15-2021 POCT VENOUS Nehal geiger DO Work Phone: Start: 01-15-2021 RESPIRATORY PANEL, MOLECULAR, WITH COVID-19 Nehal Madden DO Work Phone: Start: 01-15-2021 Radiologic exam ches t single view Nehal Madden DO Work Phone: Start: 01-15-2021 Assay of lipase Nehal Madden DO Work Phone: Start: 01-15-2021 LACTATE, SEPSIS Nehal Madden DO Work Phone: Start: 01-15-2021 Ecg routine ecg w/le ast 12 lds w/i&r Nehal Madden DO Work Phone: Start: 01-06-2021 Urnls dip stick/tabl et rgnt auto w/o microscopy Kian MONREAL Work Phone: Start: 01-05-2021 Cell count misc body fluids w/differential count Nica Nolasco MD Work Phone: Start: 01-05-2021 Crystal id light andrea roscopy edmar tiss/any fluid Nica Nolasco MD Work Phone: Start: 01-05-2021 DIFFERENTIAL, BODY FLUID Nica Nolasco MD Work Phone: Start: 01-05-2021 RESPIRATORY PANEL, MOLECULAR, WITH COVID-19 Kian MONREAL Work Phone: Start: 01-05-2021 Ct angiography chest w/contrast/noncontrast Kian MONREAL Work Phone: Start: 01-05-2021 Assay of lipase Franci MONREAL Work Phone: Start: 01-05-2021 C-reactive protein Oscar MONREAL Work Phone: Start: 01-05-2021 LACTATE, SEPSIS Lilliandaniela rodríguez Jelani MONREAL Work Phone: Start: 01-05-2021 Radiologic exam ches t single view Kian MONREAL Work Phone: Start: 01-05-2021 Radiologic examinati on knee 3 views Kian MONREAL Work Phone: Start: 01-05-2021 Ecg routine ecg w/le ast 12 lds w/i&r Kian MONREAL Work Phone: Start: 12-18-2020 Basic metabolic pane l calcium total Jorge Mejia MD Work Phone: Start: 12-18-2020 C-reactive protein Elise Mejia MD Work Phone: Start: 12-18-2020 Radiologic examinati on knee 3 views Jorge Mejia MD Work Phone: Start: 02-03-2020 Basic metabolic pane l calcium total Kiley Goff Work Phone: Start: 02-03-2020 Blood count complete auto&auto difrntl wbc Kiley Goff Work Phone: Start: 02-02-2020 Radiologic exam ches t single view Yamilka Yeboah Work Phone: Start: 02-02-2020 COVID-19 Yamilka Yeboah Work Phone: Start: 02-02-2020 Basic metabolic pane l calcium total Kiley Goff Work Phone: Start: 02-02-2020 Blood count complete auto&auto difrntl wbc Kiley Goff Work Phone: Start: 02-02-2020 MANUAL DIFFERENTIAL Jose De Jesus jessica Goff Work Phone: Start: 02-01-2020 Bone &/joint imaging limited area Deja Koehler Work Phone: Start: 01-31-2020 Basic metabolic pane l calcium total Kiley Goff Work Phone: Start: 01-31-2020 Blood count complete auto&auto difrntl wbc Kiley Goff Work Phone: Start: 01-31-2020 C-reactive protein Missy Goff Work Phone: Start: 01-31-2020 Sedimentation rate r bc automated Kiley Goff Work Phone: Start: 01-30-2020 Basic metabolic pane l calcium total Kiley Goff Work Phone: Start: 01-30-2020 Blood count complete auto&auto difrntl wbc Kiley Goff Work Phone: Start: 01-29-2020 Radiologic examinati on knee 3 views Kiley Goff Work Phone: Start: 01-28-2020 Iadna-dna/rna gi pth gn multiplex probe tq 12- [facility] Work Phone: Start: 01-28-2020 Inf agent det nuclei c acid clostridium amp probe [facility] Work Phone: Start: 01-28-2020 ADD ON LAB TEST Kiley Goff Work Phone: Start: 01-28-2020 Assay of magnesium Pram od [facility] Work Phone: Start: 01-28-2020 Blood count complete auto&auto difrntl wbc [facility] Work Phone: Start: 01-28-2020 Culture bacterial bl ood aerobic w/id isolates [facility] Work Phone: Start: 01-28-2020 MANUAL DIFFERENTIAL [facility] Work Phone: Start: 01-27-2020 CULTURE, BLOOD 1 [facility] Work Phone: Start: 01-27-2020 Drug screen class list a Lew Mimi Work Phone: Start: 01-27-2020 Urnls dip stick/tabl et rgnt auto w/o microscopy Lew Johnson Work Phone: Start: 01-27-2020 Assay of acetaminophen Alexandro Ackerman Work Phone: Start: 01-27-2020 Assay of magnesium Ryan venkata Hoffman [employer] Work Phone: Start: 01-27-2020 Assay of salicylate Chris saad Hoffman [employer]ph[employer]ip[employer] Work Phone: Start: 01-27-2020 Assay of troponin quantitative Alexandro Ackerman Work Phone: Start: 01-27-2020 Blood count complete auto&auto difrntl wbc Alexandro Ackerman Work Phone: Start: 01-27-2020 Comprehensive metabo lic panel Alexandro Ackerman Work Phone: Start: 01-27-2020 Creatine kinase total N arben Ackerman Work Phone: Start: 01-27-2020 Ct head/brain w/o co ntrast material Lew Johnson Work Phone: Start: 01-27-2020 Radiologic exam ches t single view Lew Johnson Work Phone: Start: 01-27-2020 Ecg routine ecg w/le ast 12 lds w/i&r Lew Johnson Work Phone: Start: 11-04-2019 ADD ON LAB TEST Marks R Ek Work Phone: Start: 11-04-2019 Blood typing serologic abo Marks R Ek Work Phone: Start: 11-04-2019 Ecg routine ecg w/le ast 12 lds w/i&r Marks R Ek Work Phone: Start: 11-04-2019 Radiologic exam ches t single view Marks R Ek Work Phone: Start: 11-04-2019 DIFFERENTIAL, BODY FLUID Pb Rodríguez [employer] Work Phone: Start: 11-04-2019 Smr prim src gram/gi emsa stain bct fungi/cell Pb A Eggebrecht Work Phone: Start: 11-04-2019 Cell count misc body fluids w/differential count Pb Rodríguez [employer] Work Phone: Start: 11-04-2019 Crystal id light andrea roscopy edmar tiss/any fluid Pb Rodríguez Eggcecyrecht Work Phone: Start: 11-04-2019 Radiologic examinati on knee 3 views David N Jessy Work Phone: Start: 11-04-2019 Basic metabolic pane l calcium total David N Jessy Work Phone: Start: 11-04-2019 Blood count complete auto&auto difrntl wbc David N Jessy Work Phone: Start: 11-04-2019 C-reactive protein Steven rodríguez N Jessy Work Phone: Start: 11-04-2019 Prothrombin time David N Jessy Work Phone: Start: 11-04-2019 Sedimentation rate r bc automated David N Jessy Work Phone: Start: 10-25-2019 Assay of magnesium Kamila th Protacio Work Phone: Start: 10-25-2019 Assay of phosphorus inorganic Janina Protacio Work Phone: Start: 10-25-2019 Basic metabolic pane l calcium total Masroor Romero Work Phone: Start: 10-25-2019 Blood count complete auto&auto difrntl wbc Masroor Romero Work Phone: Start: 10-25-2019 Calcium ionized Janina Protacio Work Phone: Start: 10-25-2019 Hepatic function panel Masroor Romero Work Phone: Start: 10-24-2019 Radiologic exam ches t single view Janina Protacio Work Phone: Start: 10-24-2019 Assay of magnesium Kamila th Protacio Work Phone: Start: 10-24-2019 Assay of phosphorus inorganic Janina Protacio Work Phone: Start: 10-24-2019 Basic metabolic pane l calcium total Masroor Romero Work Phone: Start: 10-24-2019 Hepatic function panel Masroor Romero Work Phone: Start: 10-24-2019 Blood count complete auto&auto difrntl wbc Masroor Romero Work Phone: Start: 10-24-2019 Calcium ionized Janina Protacio Work Phone: Start: 10-23-2019 Radiologic exam ches t single view Janina Protacio Work Phone: Start: 10-23-2019 End: 10-23-2019 POCT ARTERIAL Masroor Romero Work Phone: Start: 10-23-2019 Assay of magnesium Kamila th Protacio Work Phone: Start: 10-23-2019 Assay of phosphorus inorganic Janina Protacio Work Phone: Start: 10-23-2019 Basic metabolic pane l calcium total Masroor Romero Work Phone: Start: 10-23-2019 Blood count complete auto&auto difrntl wbc Masroor Romero Work Phone: Start: 10-23-2019 Calcium ionized Janina Protacio Work Phone: Start: 10-23-2019 Hepatic function panel Masroor Romero Work Phone: Start: 10-22-2019 Radiologic exam ches t single view Janina Protacio Work Phone: Start: 10-22-2019 Assay of magnesium Kamila th Protacio Work Phone: Start: 10-22-2019 Assay of phosphorus inorganic Janina Protacio Work Phone: Start: 10-22-2019 Basic metabolic pane l calcium total Masroor Romero Work Phone: Start: 10-22-2019 Blood count complete auto&auto difrntl wbc Masroor Romero Work Phone: Start: 10-22-2019 Calcium ionized Janina Protacio Work Phone: Start: 10-22-2019 Hepatic function panel Masroor Romero Work Phone: Start: 10-22-2019 POCT ARTERIAL Masroor M ustafa Work Phone: Start: 10-21-2019 XA SPECIAL ANGIOGRAP HY PROCEDURE Masroor Romero Work Phone: Start: 10-21-2019 Mri brain brain stem w/o w/contrast material Masroor Romero Work Phone: Start: 10-21-2019 POCT ARTERIAL Masroor M ustafa Work Phone: Start: 10-21-2019 Basic metabolic pane l calcium total Masroor Romero Work Phone: Start: 10-21-2019 Blood count complete auto&auto difrntl wbc Masroor Romero Work Phone: Start: 10-21-2019 Hepatic function panel Masroor Romero Work Phone: Start: 10-20-2019 EEG REPORT Torin Llo yd Salazar Work Phone: Start: 10-20-2019 Assay of ammonia Masroo r Romero Work Phone: Start: 10-20-2019 Assay of troponin quantitative Masroor Romero Work Phone: Start: 10-20-2019 Blood count complete auto&auto difrntl wbc Masroor Romero Work Phone: Start: 10-20-2019 Comprehensive metabo lic panel Masroor Romero Work Phone: Start: 10-20-2019 Procalcitonin (pct) Mas roor Romero Work Phone: Start: 10-20-2019 Ct angiography chest w/contrast/noncontrast Masroor Romero Work Phone: Start: 10-20-2019 POCT ARTERIAL Luli farley Work Phone: Start: 10-20-2019 POCT ARTERIAL Luli farley Work Phone: Start: 10-20-2019 Radiologic exam ches t single view Masroor Romero Work Phone: Start: 10-20-2019 Gluc bld gluc mntr d ev cleared fda spec home use Luli Lincoln Good Work Phone: Start: 10-20-2019 COV-19 Scott cadet Work Phone: Start: 10-19-2019 Gluc bld gluc mntr d ev cleared fda spec home use [employer] Work Phone: Start: 10-19-2019 Basic metabolic pane l calcium total Masroor Romero Work Phone: Start: 10-19-2019 Blood count complete auto&auto difrntl wbc Masroor Romero Work Phone: Start: 10-19-2019 Hepatic function panel Masroor Romero Work Phone: Start: 10-19-2019 Gluc bld gluc mntr d ev cleared fda spec home use [employer] Work Phone: Start: 10-18-2019 Radiologic exam ches t single view Scott Corona Work Phone: Start: 10-18-2019 Basic metabolic pane l calcium total Masroor Romero Work Phone: Start: 10-18-2019 Blood count complete auto&auto difrntl wbc Masroor Romero Work Phone: Start: 10-18-2019 Hepatic function panel Masroor Romero Work Phone: Start: 10-18-2019 POCT ARTERIAL Luli farley Work Phone: Start: 10-18-2019 Gluc bld gluc mntr d ev cleared fda spec home use Max Bob Work Phone: Start: 10-16-2019 Basic metabolic pane l calcium total Masroor Romero Work Phone: Start: 10-16-2019 Blood count complete auto&auto difrntl wbc Masroor Romero Work Phone: Start: 10-16-2019 Hepatic function panel Masroor Romero Work Phone: Start: 10-15-2019 Basic metabolic pane l calcium total Masroor Romero Work Phone: Start: 10-15-2019 Blood count complete auto&auto difrntl wbc Masroor Romero Work Phone: Start: 10-15-2019 Hepatic function panel Masroor Romero Work Phone: Start: 10-14-2019 Radiologic exam ches t single view Clinton Deleon Work Phone: Start: 10-14-2019 Acute hepatitis panel I daniel Deleon Work Phone: Start: 10-14-2019 Assay of magnesium Iftrudy Deleon Work Phone: Start: 10-14-2019 Assay of phosphorus inorganic Clinton Deleon Work Phone: Start: 10-14-2019 Blood count complete auto&auto difrntl wbc Clinton Deleon Work Phone: Start: 10-14-2019 Comprehensive metabo lic panel [employer] Deleon Work Phone: Start: 10-13-2019 Potassium serum plasma/whole blood Signal[employer] Deleon Work Phone: Start: 10-13-2019 Radiologic exam ches t single view Clinton Deleon Work Phone: Start: 10-13-2019 Assay of magnesium Koffi Sal Work Phone: Start: 10-13-2019 Assay of phosphorus inorganic Nica Sal Work Phone: Start: 10-13-2019 Blood count complete auto&auto difrntl wbc Nica A Doron Work Phone: Start: 10-13-2019 Comprehensive metabo lic panel Carleneroor Romero Work Phone: Start: 10-12-2019 Speech and language therapy regime Clinton Deleon Work Phone: Start: 10-12-2019 EXTUBATION Iftjohnathan Jones usain Work Phone: Start: 10-12-2019 Drug screen quantita tive vancomycin Clinton Deleon Work Phone: Start: 10-12-2019 POCT ARTERIAL Luli farley Work Phone: Start: 10-12-2019 Assay of magnesium Koffi patric A CiDRAmarco a Work Phone: Start: 10-12-2019 Assay of phosphorus inorganic Nica Rodríguez CiDRAmarco a Work Phone: Start: 10-12-2019 Blood count complete auto&auto difrntl wbc Nica Sal Work Phone: Start: 10-12-2019 Comprehensive metabo lic panel Des Albertsa Work Phone: Start: 10-12-2019 Radiologic exam ches t single view Clinton Deleon Work Phone: Start: 10-11-2019 Radiologic exam ches t single view [employer] Deleon Work Phone: Start: 10-11-2019 Assay of magnesium Koffi patric A CiDRAmarco a Work Phone: Start: 10-11-2019 Assay of phosphorus inorganic Nica A CiDRAmarco a Work Phone: Start: 10-11-2019 Blood count complete auto&auto difrntl wbc Nica Sal Work Phone: Start: 10-11-2019 Comprehensive metabo lic panel Carleneroor Romero Work Phone: Start: 10-11-2019 POCT ARTERIAL Rami Abbo ud Work Phone: Start: 10-10-2019 Radiologic exam ches t single view Clinton Deleon Work Phone: Start: 10-10-2019 POCT ARTERIAL Rami Abbo ud Work Phone: Start: 10-10-2019 Assay of magnesium Koffi patric Rodríguez [employer] Work Phone: Start: 10-10-2019 Assay of phosphorus inorganic Nica Rodríguez [employer] Work Phone: Start: 10-10-2019 Blood count complete auto&auto difrntl wbc Nica Rodríguez [employer] Work Phone: Start: 10-10-2019 Comprehensive metabo lic panel Masroor Romero Work Phone: Start: 10-09-2019 Smr prim src gram/gi emsa stain bct fungi/cell Masroor Romero Work Phone: Start: 10-09-2019 Virus centrifuge enh ncd id imfluor stain ea Masroor Romero Work Phone: Start: 10-09-2019 POCT ARTERIAL Luli farley Work Phone: Start: 10-09-2019 Blood count hemoglobin Nica Rodríguez [employer] Work Phone: Start: 10-09-2019 Radiologic exam ches t single view Masroor Romero Work Phone: Start: 10-09-2019 EXTUBATION Masroor Mu stafa Work Phone: Start: 10-09-2019 Basic metabolic pane l calcium total Rami Judy Work Phone: Start: 10-09-2019 Blood count hemoglobin Nica Rodríguez [employer] Work Phone: Start: 10-09-2019 POCT ARTERIAL Luli farley Work Phone: Start: 10-09-2019 Assay of magnesium Rami Judy Work Phone: Start: 10-09-2019 Assay of phosphorus inorganic Rami Judy Work Phone: Start: 10-09-2019 Basic metabolic pane l calcium total Rami Judy Work Phone: Start: 10-09-2019 Blood count complete auto&auto difrntl wbc Nica Rodríguez CiDRAmarco a Work Phone: Start: 10-08-2019 Ecg routine ecg w/le ast 12 lds w/i&r Nica Rodríguez CiDRAmarco a Work Phone: Start: 10-08-2019 Basic metabolic pane l calcium total Rami Judy Work Phone: Start: 10-08-2019 Blood count hemoglobin Nica Rodríguez CiDRAmarco a Work Phone: Start: 10-08-2019 Echo tthrc r-t 2d w/wom-mode compl spec&colr d Rami Judy Work Phone: Start: 10-08-2019 Basic metabolic pane l calcium total Rami Judy Work Phone: Start: 10-08-2019 Blood count hemoglobin Nica Rodríguez CiDRAmarco a Work Phone: Start: 10-08-2019 Radiologic exam ches t single view Masroor Romero Work Phone: Start: 10-08-2019 Ecg routine ecg w/le ast 12 lds w/i&r Nica Rodríguez [employer] Work Phone: Start: 10-08-2019 POCT ARTERIAL Luli Jones deborahkaren Work Phone: Start: 10-08-2019 Assay of magnesium Koffi patric Rodríguez [employer] Work Phone: Start: 10-08-2019 Assay of phosphorus inorganic Nica Rodríguez [employer] Work Phone: Start: 10-08-2019 Blood count complete auto&auto difrntl wbc Nica Rodríguez [employer] Work Phone: Start: 10-07-2019 Basic metabolic pane l calcium total Rami Judy Work Phone: Start: 10-07-2019 Ecg routine ecg w/le ast 12 lds w/i&r Nica Rodríguez [employer] Work Phone: Start: 10-07-2019 Basic metabolic pane l calcium total Rami Judy Work Phone: Start: 10-07-2019 Ecg routine ecg w/le ast 12 lds w/i&r Nica Rodríguez [employer] Work Phone: Start: 10-07-2019 POCT ARTERIAL Luli farley Work Phone: Start: 10-07-2019 Assay of magnesium Koffi patric Rodríguez [employer] Work Phone: Start: 10-07-2019 Assay of phosphorus inorganic Nica Rodríguez [employer] Work Phone: Start: 10-07-2019 Basic metabolic pane l calcium total Nica Rodríguez [employer] Work Phone: Start: 10-07-2019 Blood count complete auto&auto difrntl wbc Nica Rodríguez [employer] Work Phone: Start: 10-06-2019 Ecg routine ecg w/le ast 12 lds w/i&r Nica Rodríguez [employer] Work Phone: Start: 10-06-2019 Basic metabolic pane l calcium total Rami Judy Work Phone: Start: 10-06-2019 POCT ARTERIAL Luli farley Work Phone: Start: 10-06-2019 Smr prim src gram/gi emsa stain bct fungi/cell Rami Judy Work Phone: Start: 10-06-2019 Virus centrifuge enh ncd id imfluor stain ea Rami Judy Work Phone: Start: 10-06-2019 Basic metabolic pane l calcium total Rami Judy Work Phone: Start: 10-06-2019 Ecg routine ecg w/le ast 12 lds w/i&r Nica Rodríguez [employer] Work Phone: Start: 10-06-2019 POCT ARTERIAL Luli farley Work Phone: Start: 10-06-2019 ADD ON LAB TEST Alexand justina Rodríguez [employer] Work Phone: Start: 10-06-2019 Assay of magnesium Koffi patric A [employer] Work Phone: Start: 10-06-2019 Blood count complete auto&auto difrntl wbc Nica Rodríguez [employer] Work Phone: Start: 10-06-2019 MANUAL DIFFERENTIAL Ila yazmin Rodríguez [employer] Work Phone: Start: 10-06-2019 RENAL + LIVER PROF Koffi Rodríguez [employer] Work Phone: Start: 10-05-2019 Ecg routine ecg w/le ast 12 lds w/i&r Nica Rodríguez [employer] Work Phone: Start: 10-05-2019 Basic metabolic pane l calcium total Rami Judy Work Phone: Start: 10-05-2019 Basic metabolic pane l calcium total Rami Judy Work Phone: Start: 10-05-2019 Smr prim src gram/gi emsa stain bct fungi/cell Rami Judy Work Phone: Start: 10-05-2019 Virus centrifuge enh ncd id imfluor stain ea Rami Judy Work Phone: Start: 10-05-2019 Ecg routine ecg w/le ast 12 lds w/i&r Nica Rodríguez [employer] Work Phone: Start: 10-05-2019 Ct angiography chest w/contrast/noncontrast Rami Judy Work Phone: Start: 10-05-2019 POCT ARTERIAL Luli farley Work Phone: Start: 10-05-2019 Radiologic exam ches t single view Nica Rodríguez [employer] Work Phone: Start: 10-05-2019 Calcium ionized Mary Janend justina Rodríguez [employer] Work Phone: Start: 10-05-2019 ADD ON LAB TEST Mary Janend justina Rodríguez [employer] Work Phone: Start: 10-05-2019 Assay of magnesium Koffi Rodríguez [employer] Work Phone: Start: 10-05-2019 Assay of phosphorus inorganic Nica Rodríguez [employer] Work Phone: Start: 10-05-2019 Basic metabolic pane l calcium total Nica Rodríguez [employer] Work Phone: Start: 10-05-2019 Blood count complete auto&auto difrntl wbc Nica Rodríguez [employer] Work Phone: Start: 10-05-2019 MANUAL DIFFERENTIAL Ila yazmin Rodríguez [employer] Work Phone: Start: 10-04-2019 Ecg routine ecg w/le ast 12 lds w/i&r Nica Rodríguez [employer] Work Phone: Start: 10-04-2019 Basic metabolic pane l calcium total Rami Judy Work Phone: Start: 10-04-2019 POCT ARTERIAL FlavioLatonia farley Work Phone: Start: 10-04-2019 Procalcitonin (pct) Teo i Judy Work Phone: Start: 10-04-2019 Basic metabolic pane l calcium total Rami Judy Work Phone: Start: 10-04-2019 Ecg routine ecg w/le ast 12 lds w/i&r Nica Rodríguez [employer] Work Phone: Start: 10-04-2019 POCT ARTERIAL Luli Lincoln Karen farley Work Phone: Start: 10-04-2019 ADD ON LAB TEST Nathalia Rodríguez [employer] Work Phone: Start: 10-04-2019 Assay of magnesium Rami Judy Work Phone: Start: 10-04-2019 Assay of phosphorus inorganic Rami Judy Work Phone: Start: 10-04-2019 BASIC METABOLIC PANE L W/ REFLEX TO MG FOR LOW K Rami Judy Work Phone: Start: 10-04-2019 Blood count complete auto&auto difrntl wbc Rami Judy Work Phone: Start: 10-03-2019 Ecg routine ecg w/le ast 12 lds w/i&r Nica A [employer] Work Phone: Start: 10-03-2019 Basic metabolic pane l calcium total Rami Judy Work Phone: Start: 10-03-2019 Culture bacterial bl ood aerobic w/id isolates Luli Nelsonh Work Phone: Start: 10-03-2019 POCT ARTERIAL Teoi Gingero ud Work Phone: Start: 10-03-2019 COVID-19 Rajendra Aj d Work Phone: Start: 10-03-2019 Ecg routine ecg w/le ast 12 lds w/i&r Ramwaylon Ajd Work Phone: Start: 10-03-2019 Assay of acetaminophen Rami Judy Work Phone: Start: 10-03-2019 Basic metabolic pane l calcium total Rajendra Ajd Work Phone: Start: 10-03-2019 POCT ARTERIAL Rajendra Mileso ud Work Phone: Start: 10-03-2019 Drug screen class list a Luli Lincoln Good Work Phone: Start: 10-03-2019 Urnls dip stick/tabl et rgnt auto w/o microscopy Luli Lincoln Good Work Phone: Start: 10-03-2019 Assay of acetaminophen Luli Lincoln Good Work Phone: Start: 10-03-2019 Assay of ethanol Luli Lincoln Good Work Phone: Start: 10-03-2019 Assay of lactate Luli Lincoln Good Work Phone: Start: 10-03-2019 Assay of lipase Luli Lincoln Good Work Phone: Start: 10-03-2019 Assay of magnesium Saurabh susie Good Work Phone: Start: 10-03-2019 Assay of salicylate Temo pat Lincoln Good Work Phone: Start: 10-03-2019 Assay of troponin quantitative Luli Lincoln Good Work Phone: Start: 10-03-2019 Blood count complete auto&auto difrntl wbc Luli Lincoln Good Work Phone: Start: 10-03-2019 Comprehensive metabo lic panel Luli Nelsonh Work Phone: Start: 10-03-2019 Creatine kinase total D nora Nelsonh Work Phone: Start: 10-03-2019 CULTURE, BLOOD 1 Luli Lincoln Good Work Phone: Start: 10-03-2019 Natriuretic peptide Temo pat Lincoln Good Work Phone: Start: 10-03-2019 Ct cervical spine w/ o contrast material Luli Lincoln Good Work Phone: Start: 10-03-2019 Ct head/brain w/o co ntrast material Luli Lincoln Good Work Phone: Start: 10-03-2019 Radiologic exam ches t single view Luli Lincoln Good Work Phone: Start: 10-03-2019 Ecg routine ecg w/le ast 12 lds w/i&r Luli Lincoln Good Work Phone: Start: 10-03-2019 Gluc bld gluc mntr d ev cleared fda spec home use Unknown Provider Result Start: 10-03-2019 Intubation endotrach eal emergency procedure Luli Lincoln Good Work Phone: Start: 11-01-2018 Adult depression scr eening assessment Moreno Oates MD Work Phone: Plan of Treatment Date Care Activity Detail Author Start: 2031 RSV Vaccine (1 - 1-d ose 75+ series) RSV Vaccine (1 - 1-dose 75+ series) [facility] Start: 07-12-2027 Diabetes Screening Diabetes Screenin g [facility] Start: 04-11-2027 Diabetes Screening Diabetes Screenin g [facility] Start: 12-06-2026 DTaP/Tdap/Td vaccine (2 - Td or Tdap) DTaP/Tdap/Td vaccine (2 - Td or Tdap) [facility] Work Phone: Start: 12-06-2026 DTaP/Tdap/Td vaccine (2 - Td) DTaP/Tdap/Td vaccine (2 - Td) [place] Start: 12-06-2026 DTaP/Tdap/Td Vaccine s (2 - Td or Tdap) DTaP/Tdap/Td Vaccines (2 - Td or Tdap) [facility] Start: 12-06-[address] [facility] Start: 11-08-2026 Diabetes Screening Diabetes Screenin g [facility] Start: 06-08-2026 Diabetes Screening Diabetes Screenin g [facility] Start: 05-11-2026 Diabetes Screening Diabetes Screenin g [facility] Start: 03-09-2026 Diabetes Screening Diabetes Screenin g [facility] Start: 12-30-2025 DIABETES SCREEN DIABETES SCREEN [facility] Start: 12-30-2025 Diabetes Screening Diabetes Screenin g [facility] Start: 11-10-2025 DIABETES SCREEN DIABETES SCREEN [facility] Start: 10-06-2025 DIABETES SCREEN DIABETES SCREEN [facility] Start: 04-14-2025 DIABETES SCREEN DIABETES SCREEN [facility] Start: 01-30-2025 Influenza vaccination Influenz a Vaccine (Season Ended) [facility] Start: 06-01-2024 Advance Directive Discussion Advance Directive Discussion [facility] Start: 01-31-2024 Covid-19 Vaccine ( season) Covid-19 Vaccine ( season) [facility] Start: 01-31-2024 Influenza vaccination [facility] Start: 01-07-2024 DIABETES SCREEN DIABETES SCREEN [facility] Start: 06-01-2023 Advance Directive Discussion Advance Directive Discussion [facility] Start: 06-01-2023 Behavioral Health Screening Behavioral Health Screening [facility] Start: 06-01-2023 Depression Assessment Depression Ass [facility] Start: 01-30-2023 Covid-19 Vaccine ( season) Covid-19 Vaccine ( season) [facility] Start: 01-30-2023 Influenza vaccination [facility] Start: 06-01-2022 ADVANCE DIRECTIVE DISCUSSION ADVANCE DIRECTIVE DISCUSSION [facility] Start: 06-01-2022 [facility]PRESSION [facility]ESSMENT [facility] Start: 01-30-2022 Influenza vaccination [facility] Start: 06-01-2021 ADVANCE DIRECTIVE DISCUSSION ADVANCE DIRECTIVE DISCUSSION [facility] Start: 06-01-2021 DEPRESSION ASSESSMENT DEPRESSION ASS [facility] Start: 2021 BONE DENSITY BONE DENSITY [facility] Start: 2021 Bone Density Screening Bone Density Screening [facility] Start: 2021 Pneumococcal Vaccine : 65+ (1 of 1 - PCV) Pneumococcal Vaccine: 65+ (1 of 1 - PCV) [facility] Start: 2021 PNEUMOVAX AGE 65 AND OVER WITH 5YR LOOKBACK (#1) PNEUMOVAX AGE 65 AND OVER WITH 5YR LOOKBACK (#1) [facility] Start: 2021 Screening for osteoporosis Bone Density Screening [facility] Start: 01-30-2021 Influenza vaccination [facility] Start: 12-27-2020 End: 12-27-2020 Patient encounter procedure 12/27/2020 Office Visit Urology Zoila Gallagher APRN - [address] [address] [phone] [facility] Start: 12-11-2020 ANNUAL PCP TEAM [employer] ENGINEER CHRIS DISEASE VISIT ANNUAL PCP TEAM CHRONIC DISEASE VISIT [facility] Start: 11-25-2020 COVID-19 VACCINE (3 - Booster for Pfizer series) COVID-19 VACCINE (3 - Booster for Pfizer series) [facility] Start: 10-23-2020 Creatinine measurement Creatinine mo nitoring [place] Start: 10-23-2020 Potassium monitoring Potassium monit oring [place] Start: 08-22-2020 COVID-19 VACCINE (3 - Booster for Pfizer series) COVID-19 VACCINE (3 - Booster for Pfizer series) [facility] Start: 08-22-2020 COVID-19 VACCINE (3 - Pfizer series) COVID-19 VACCINE (3 - Pfizer series) [facility] Start: 01-31-2020 Influenza vaccination M [place], [place] Start: 12-31-2019 BP CONTROLLED (<130/80) BP CONTROLLE D (<130/80) [facility] Start: 11-02-2019 Adult depression screening assessment DEPRESSION SCREENING [facility] Start: 06-05-2017 Screening for malign ant neoplasm of breast Breast cancer screen [place], [place] Start: 2016 RSV Vaccine (1 - 1-d ose 60+ series) RSV Vaccine (1 - 1-dose 60+ series) [facility] Start: 2006 Pneumococcal Vaccine : 50+ (1 of 1 - PCV) Pneumococcal Vaccine: 50+ (1 of 1 - PCV) [facility] Start: 2006 Screening for malign ant neoplasm of colon Colon cancer screen colonoscopy [place], [place] Start: 2006 Shingles Vaccine (1 of 2) Shingles Vaccine (1 of 2) [place] Start: 2006 SHINGRIX VACCINE (1 of 2) SHINGRIX VACCINE (1 of 2) [facility] Start: 2006 Zoster Vaccines (1 of 2) Zoste r Vaccines (1 of 2) [facility] Start: 2001 COLOGUARD (FIT-DNA) COLOGUARD (FIT-D NA) [facility] Start: [address] [facility] Start: 2001 COLORECTAL CANCER SCREENING COLORECTAL CANCER SCREENING [facility] Start: [address] COLONOGRAPHY [facility] Start: 2001 FECAL OCCULT BLOOD FECAL OCCULT BLOO D [facility] Start: 2001 Lipid 1996 panel - S alfonzo or Plasma Lipid Screening [facility] Start: 2001 Lipid panel Lipid Screening [facility] Start: 2001 LIPID SCREEN LIPID SCREEN [facility] Start: 2001 Screening for malign ant neoplasm of colon [facility] Start: 2001 SIGMOIDOSCOPY SIGMOIDOSCOPY [facility] Start: [address] [facility] Start: 1996 Screening for malign ant neoplasm of breast [facility] Start: 1974 Anxiety Screening Anxiety Screening [facility] Start: 1974 Depression Screening Depression Scre ing [facility] Start: 1974 Diabetes mellitus screening Diabetes Screening [facility] Start: 1974 HIV SCREENING HIV SCREENING [facility] Start: 1968 COVID-19 Vaccine (1) COVID-19 Vaccin e (1) [facility] Work Phone: Start: 1968 Depression Screening Depression Scre ening [facility] Start: 1962 Pneumococcal 0-64 ye ars Vaccine (1 of 1 - PPSV23) Pneumococcal 0-64 years Vaccine (1 of 1 - PPSV23) [facility] [place] Start: 1962 Pneumococcal 0-64 ye ars Vaccine (1 of 2 - PPSV23) Pneumococcal 0-64 years Vaccine (1 of 2 - PPSV23) [facility] Phone: Start: 1962 Pneumococcal Vaccine : 65+ (1 - PCV) Pneumococcal Vaccine: 65+ (1 - PCV) [facility] Start: 1962 Pneumococcal Vaccine : 65+ (1 of 2 - PCV) Pneumococcal Vaccine: 65+ (1 of 2 - PCV) [facility] Start: 1962 Pneumococcal Vaccine : 65+ Years (1 - PCV) Pneumococcal Vaccine: 65+ Years (1 - PCV) [facility] Start: 1962 PNEUMOCOCCAL: 65+ (1 - PCV) PNEUMOCOCCAL: 65+ (1 - PCV) [facility] Start: 1956 Lipid panel Lipid Panel [facility] Start: 1956 Screening for malign ant neoplasm of colon [facility] Start: 1956 Screening for osteoporosis Bone Density Scan [facility] Acapella Acapella Respira tory Care Routine Daily until discontinued starting 10/25/2019 [facility] [place] Comment on above: Daily until disconti nued starting 10/25/2019 Basic metabolic 2000 panel [facility] [place] Comment on above: Daily until disconti nued starting 01/30/2020, 4 completed Daily until disconti nued starting 10/15/2019, 9 completed End: 11-05-2019 Basic Metabolic Panel w/ Reflex to MG Basic Metabolic Panel w/ Reflex to MG Lab Routine Tomorrow AM for 1 Occurrences starting 11/05/2019 until 11/05/2019 [facility]: Tomorrow AM for 1 Oc currences starting 11/05/2019 until 11/05/2019 BIPAP BIPAP Respirator y Care Routine Every 4hr until discontinued starting 10/24/2019 [facility] [place] Comment on above: Every 4hr until disc ontinued starting 10/24/2019 End: 01-15-2021 Blood gas, venous Blood gas, venous Lab STAT One Time for 1 Occurrences starting 01/15/2021 until 01/15/2021 [facility] Work Phone: Comment on above: One Time for 1 Occur rences starting 01/15/2021 until 01/15/2021 Calcium, Ionized Calcium, Ionize d Lab Routine Daily until discontinued starting 10/22/2019, 4 completed [facility], [place] Comment on above: Daily until disconti nued starting 10/22/2019, 4 completed End: 11-05-2019 CBC CBC Lab Routine Tomorrow AM for 1 Occurrences starting 11/05/2019 until 11/05/2019 [facility], [place] Comment on above: Tomorrow AM for 1 Oc currences starting 11/05/2019 until 11/05/2019 CBC Auto Differential [facility], [place] Comment on above: Daily until disconti nued starting 01/30/2020, 4 completed Daily until disconti nued starting 10/15/2019, 9 completed End: 10-03-2019 COVID-19 COVID-19 Lab Routine Once for 1 Occurrences starting 10/03/2019 until 10/03/2019 [facility], [place] Comment on above: Once for 1 Occurrenc es starting 10/03/2019 until 10/03/2019 COVID-19 COVID-19 Lab Rou carlos 10/03/2019 6:06 PM EDT [facility] [place] End: 01-31-2020 CRP [Mass/Vol] C-Reactive Protein Lab Add-On One Time for 1 Occurrences starting 01/31/2020 until 01/31/2020 [place] Comment on above: One Time for 1 Occur rences starting 01/31/2020 until 01/31/2020 End: 06-12-2022 Ct lower extremity w/o contrast material [facility] Work Phone: Comment on above: 1 Occurrences starti ng 06/12/2022 until 06/12/2022 End: 11-04-2019 Culture, Anaerobic and Aerobic Culture, Anaerobic and Aerobic Microbiology STAT One Time for 1 Occurrences starting 11/04/2019 until 11/04/2019 [facility], [place] Comment on above: One Time for 1 Occur rences starting 11/04/2019 until 11/04/2019 Culture, Anaerobic a nd Aerobic [place] End: 01-05-2021 Culture, Anaerobic and Aerobic Culture, Anaerobic and Aerobic Microbiology STAT One Time for 1 Occurrences starting 01/05/2021 until 01/05/2021 [facility] Work Phone: Comment on above: One Time for 1 Occur rences starting 01/05/2021 until 01/05/2021 End: 11-04-2019 Culture, Blood 1 Culture, Blood 1 Microbiology STAT One Time for 1 Occurrences starting 11/04/2019 until 11/04/2019 [place] Comment on above: One Time for 1 Occur rences starting 11/04/2019 until 11/04/2019 End: 01-05-2021 Culture, Blood 1 Culture, Blood 1 Microbiology STAT One Time for 1 Occurrences starting 01/05/2021 until 01/05/2021 [facility] Work Phone: Comment on above: One Time for 1 Occur rences starting 01/05/2021 until 01/05/2021 End: 01-15-2021 Culture, Blood 1 Culture, Blood 1 Microbiology STAT One Time for 1 Occurrences starting 01/15/2021 until 01/15/2021 [facility] Work Phone: Comment on above: One Time for 1 Occur rences starting 01/15/2021 until 01/15/2021 End: 11-04-2019 Culture, Blood 2 Culture, Blood 2 Microbiology STAT One Time for 1 Occurrences starting 11/04/2019 until 11/04/2019 [place] Comment on above: One Time for 1 Occur rences starting 11/04/2019 until 11/04/2019 End: 12-18-2020 Culture, Blood 2 Culture, Blood 2 Microbiology STAT One Time for 1 Occurrences starting 12/18/2020 until 12/18/2020 [facility] Work Phone: Comment on above: One Time for 1 Occur rences starting 12/18/2020 until 12/18/2020 Culture, Blood 2 [facility] Work Phone: End: 01-05-2021 Culture, Blood 2 Culture, Blood 2 Microbiology STAT One Time for 1 Occurrences starting 01/05/2021 until 01/05/2021 [facility] Work Phone: Comment on above: One Time for 1 Occur rences starting 01/05/2021 until 01/05/2021 End: 01-15-2021 Culture, Blood 2 Culture, Blood 2 Microbiology STAT One Time for 1 Occurrences starting 01/15/2021 until 01/15/2021 [facility] Work Phone: Comment on above: One Time for 1 Occur rences starting 01/15/2021 until 01/15/2021 End: 04-16-2023 Diagnostic mammography computer-aided detcj bi AMANDA DIAGNOSTIC BILAT Radiology Routine Breast pain, left 1 Occurrences starting 03/17/2022 until 04/16/2023 [facility] Work Phone: Comment on above: 1 Occurrences starti ng 03/17/2022 until 04/16/2023 ECG 12 lead ECG 12 lead CV E CG STAT 11/17/2022 9:13 AM EDT [facility] Work Phone: EKG 12 Lead [facility] [place] Comment on above: As Needed until disc ontinued starting 10/08/2019 Hepatic Function Panel Hepatic F unction Panel Lab Routine Daily until discontinued starting 10/15/2019, 9 completed [facility] Comment on above: Daily until disconti nued starting 10/15/2019, 9 completed End: 10-25-2019 Home O2 eval (desaturation screen) Home O2 eval (desaturation screen) Respiratory Care Routine One Time for 1 Occurrences starting 10/25/2019 until 10/25/2019 [facility] Comment on above: One Time for 1 Occur rences starting 10/25/2019 until 10/25/2019 Initiate Oxygen Ther apy Protocol [facility] Comment on above: Daily until disconti nued starting 11/04/2019 Daily until disconti nued starting 10/03/2019 End: 01-05-2021 Initiate Sepsis Narrator Initiate Sepsis Narrator Respiratory Care STAT Once for 1 Occurrences starting 01/05/2021 until 01/05/2021 [facility] Work Phone: Comment on above: Once for 1 Occurrenc es starting 01/05/2021 until 01/05/2021 End: 01-15-2021 Initiate Sepsis Narrator Initiate Sepsis Narrator Respiratory Care STAT Once for 1 Occurrences starting 01/15/2021 until 01/15/2021 [facility] Work Phone: Comment on above: Once for 1 Occurrenc es starting 01/15/2021 until 01/15/2021 End: 01-15-2021 Lactate, Sepsis Lactate, Sepsis Lab Timed Now Then Every 2hr for 2 Occurrences starting 01/15/2021 until 01/15/2021, 1 completed [facility] Work Phone: Comment on above: Now Then Every 2hr f or 2 Occurrences starting 01/15/2021 until 01/15/2021, 1 completed Magnesium [Mass/Vol] MAGNESIUM L ab Routine Daily until discontinued starting 10/22/2019, 4 completed [facility] Comment on above: Daily until disconti nued starting 10/22/2019, 4 completed End: 12-12-2023 AMANDA SCREENING AMANDA SCREENING Radiology Routine Encounter for screening mammogram for breast cancer 1 Occurrences starting 11/12/2022 until 12/12/2023 [facility] Work Phone: Comment on above: 1 Occurrences starti ng 11/12/2022 until 12/12/2023 End: 12-18-2020 Microscopic examination of blood, culture Culture, Blood Microbiology STAT One Time for 1 Occurrences starting 12/18/2020 until 12/18/2020 [facility] Work Phone: Comment on above: One Time for 1 Occur rences starting 12/18/2020 until 12/18/2020 Microscopic examinat ion of blood, culture [facility] Work Phone: End: 01-05-2021 Microscopic observation [Identifier] in Unspecified specimen by Gram stain Gram Stain Microbiology STAT One Time for 1 Occurrences starting 01/05/2021 until 01/05/2021 [facility] Work Phone: Comment on above: One Time for 1 Occur rences starting 01/05/2021 until 01/05/2021 Microscopic observat ion [Identifier] in Unspecified specimen by Gram stain Gram Stain Microbiology STAT 01/05/2021 11:29 PM EDT [facility] Work Phone: Oxygen therapy [[facility]] [facility] Comment on above: Daily until disconti nued starting 01/27/2020 Daily until disconti nued starting 01/05/2021 Daily until disconti nued starting 01/15/2021 End: 10-04-2019 PBP2A TEST FOR S. AUREUS PBP2A TEST FOR S. AUREUS Lab Routine Once for 1 Occurrences starting 10/04/2019 until 10/04/2019 [facility] [place] Comment on above: Once for 1 Occurrenc es starting 10/04/2019 until 10/04/2019 End: 10-09-2019 PBP2A TEST FOR S. AUREUS PBP2A TEST FOR S. AUREUS Lab Routine Once for 1 Occurrences starting 10/09/2019 until 10/09/2019 [facility], [place] Comment on above: Once for 1 Occurrenc es starting 10/09/2019 until 10/09/2019 PBP2A TEST FOR S. AUREUS [place], [place] Phosphate [Mass/Vol] Phosphorus Lab Routine Daily until discontinued starting 10/22/2019, 4 completed [facility] [place] Comment on above: Daily until disconti nued starting 10/22/2019, 4 completed End: 10-03-2019 Procalcitonin Procalcitonin Lab Routine One Time for 1 Occurrences starting 10/03/2019 until 10/03/2019 [facility] [place] Comment on above: One Time for 1 Occur rences starting 10/03/2019 until 10/03/2019 Procalcitonin [place] Comment on above: Q48H until discontin ued starting 01/05/2021, 1 completed Q48H until discontin ued starting 01/15/2021, 1 completed End: 01-31-2020 Sedimentation Rate Sedimentation Rate Lab Add-On One Time for 1 Occurrences starting 01/31/2020 until 01/31/2020 [facility] [place] Comment on above: One Time for 1 Occur rences starting 01/31/2020 until 01/31/2020 Spirometry panel [facility] [place] Comment on above: Daily until disconti nued starting 01/27/2020 Every 2hr while awak e until discontinued starting 02/02/2020 End: 01-15-2021 Urinalysis Urinalysis Lab STAT One Time for 1 Occurrences starting 01/15/2021 until 01/15/2021 [facility] Work Phone: Comment on above: One Time for 1 Occur rences starting 01/15/2021 until 01/15/2021 End: 04-16-2023 Us breast uni real time with image limited US BREAST LTD LT Radiology Routine Breast pain, left 1 Occurrences starting 03/17/2022 until 04/16/2023 [facility] Work Phone: Comment on above: 1 Occurrences starti ng 03/17/2022 until 04/16/2023 End: 01-30-2020 Wound ostomy eval Wound ostomy eval Wound Ostomy Routine One Time for 1 Occurrences starting 01/30/2020 until 01/30/2020 [facility] [place] Comment on above: One Time for 1 Occur rences starting 01/30/2020 until 01/30/2020 [facility] Immunizations Immunization Date Immunization Notes Care Provider [facility] 03-25-2018 influenza, injectabl e, quadrivalent, preservative free Moreno Oates MD Work Phone: [facility] 03-25-2018 influenza virus vacc ine, unspecified formulation Marc Maxine DO Work Phone: [facility] 01-29-2017 influenza, injectabl e, quadrivalent, contains preservative Moreno Oates MD Work Phone: [facility] 01-11-2017 influenza, injectabl e, quadrivalent, preservative free Moreno Oates MD Work Phone: [facility] 12-06-2016 tetanus toxoid, redu milton diphtheria toxoid, and acellular pertussis vaccine, adsorbed [facility] 03-23-2016 influenza, injectabl e, quadrivalent, preservative free Moreno Oates MD Work Phone: [facility] 02-15-2016 Influenza Vaccine, unspecified formulation Luli [facility] [place] 02-15-2016 influenza, injectabl e, quadrivalent, preservative free Moreno Oates MD Work Phone: [facility] 02-15-2016 influenza, seasonal, injectable Moreno Oates MD Work Phone: [facility] 03-24-2015 influenza nasal, unspecified formulation Moreno Oates MD Work Phone: [facility] 03-24-2015 influenza virus vacc ine, unspecified formulation Luli Morris [facility] 03-24-2015 influenza, seasonal, injectable, preservative free Moreno Oates MD Work Phone: [facility] 04-04-2009 novel Influenza-H1N1 -09, live virus for nasal administration Moreno Oates MD Work Phone: [facility] Payers Date Payer Category Payer Self-pay [id number] 2021 Private Health Insurance 2021 Unknown [id number] 2021 Medicare MEDICARE MEDICAR E A AND B [id number] 2021-Present [phone] [place] [address] Medicare [id number] 2021 Medicare MEDICARE MEDICAR E A AND B [id number] 2021-Present [phone] [place] [address] Medicare [id number] 2019 Medicaid MEDICAID [facility] DEPT OF J[facility] xxxxxxxxxxxx 2019-Present [phone] [address] [place] [address] xxxxxxxxxxxx [id number] 2018 Medicaid [id number] 2018 Medicaid [place] [id number] 2018-Present [phone] [address] [place] [address] Medicaid [id number] 2018 Medicaid [id number] 2018 Unknown [id number] 1959 Unknown [id number] 1956 Unknown [id number] 1956 Unknown [id number] 1956 Unknown [id number] Unknown [id number] .462 Unknown [id number] .462 Unknown [id number] .462 Unknown [id number] .462 Unknown [id number] .462 Unknown [id number] .462 Unknown [id number] .462 Unknown [id number] [id number] .462 Unknown [id number] .462 Unknown [id number] .462 Unknown [id number] [id number] .462 Unknown [id number] .462 Social History Date Type Detail Facility Start: 11-04-2019 End: 01-29-2020 Tobacco smoking status NHIS [facility] Start: 06-01-1969 History of tobacco use Cigarette Smo ker [facility] Start: 11-04-2019 End: 06-16-2022 Cigarettes smoked current (pack per day) - Reported [facility] Work Phone: Start: 11-04-2019 End: 12-21-2020 Alcohol intake Current non-drinker of alcohol (finding) [facility] Start: 1955 Sex Assigned At Not on file M [facility] [place] Exposure to SARS-CoV -2 (event) Unable to assess [facility] Start: 04-17-2017 End: 01-29-2020 Tobacco use and exposure Never used [employer] [facility] Exposure to SARS-CoV -2 (event) Not sure [facility] Start: 06-01-1969 End: 10-23-2019 Tobacco smoking status ALIS Current every day smoker [facility] Start: 11-05-2019 History SDOH Financial [address] [facility] Start: 11-05-2019 History SDOH Food Worry 2 [facility] Start: 1955 Sex Assigned At Female W [facility] Start: 05-20-2022 End: 06-16-[address] [facility] Work Phone: National Score (1-10 0), lower number is lower risk 86 [facility] How hard is it for y ou to pay for the very basics like food, housing, medical care, and heating Not very hard [facility] Work Phone: (I/We) worried margarito er (my/our) food would run out before (I/we) got money to buy more. Sometimes true [facility] Work Phone: Tobacco smoking stat NHIS Unknown if ever smoked [facility] Work Phone: Start: 09-02-2024 Sex Female (finding) Wooste r [facility] Medical Equipment Procedure Code Equipment Code Equipment Origin al Text Equipment Identifier Dates Block Gmrs Small 10mm Augmentation Femoral Distal - [id number] Start: 03-19-2018 Cement Simplex P Bone Radiopaque Full Dose Sterile - [id number] Start: 06-06-2016 Comment on above: Description: simplex p bone cement Cement Simplex P Bone Radiopaque Full Dose Sterile - [id number] Start: 01-28-2017 Comment on above: Description: simplex p bone cement Cement Simplex P Tobramycin Bone Full Dose Radiopaque Preblend Sterile - [id number] Start: 03-19-2018 Edb-Ze-V-Kind Im plant - [id number] Start: 07-06-2017 Comment on above: Description: cancell ous screw Component Gmrs Polyethylene Femoral Pack Crosslink Knee - [id number] Start: 03-19-2018 Stem Kinemax Clyde r 80mm Femoral Cement Knee - [id number] Start: 03-19-2018 Extension Kinema x Xs Cocr 40mm Stem Cemented Knee Femoral - [id number] Start: 03-19-2018 Component Triath rafiq 5 Femoral Cemented Posterior Stabilize Knee Right - [id number] Start: 06-06-2016 Insert Triathlon 6 X3 13mm Tibial Posterior Stabilized Bearing Knee - [id number] Start: 06-06-2016 Component Triath rafiq 5 Femoral Cemented Posterior Stabilize Knee Left - [id number] Start: 01-28-2017 Comment on above: Description: triathl on posterior stabilized femoral Insert Triathlon 5 X3 11mm Tibial Posterior Stabilized Bearing Knee - [id number] Start: 01-28-2017 Comment on above: Description: triathl on tibial bearing insert - ps Insert Triathlon 6 X3 16mm Tibial Posterior Stabilized Bearing Knee - [id number] Start: 04-20-2017 Comment on above: Description: Tibial Bearing Insert-PS Insert Triathlon 6 X3 19mm Tibial Posterior Stabilized Bearing Knee - [id number] Start: 07-06-2017 Comment on above: Description: triathl on X3 tibial bearing insert - ps Restrictor Mediu m Marathon Cement Disposable Ship Mate Distal - [id number] Start: 03-19-2018 Restrictor Mediu m Marathon Cement Disposable Ship Mate Distal - [id number] Start: 03-19-2018 Component Xs Sma ll Medium Tibial Rotate Hinge Knee - [id number] Start: 03-19-2018 Axle Femoral Mod ular Rotate Hinge Knee - [id number] Start: 03-19-2018 Wedge Duracon S2 Full 10mm Tibial Revision Knee - [id number] Start: 03-19-2018 Insert Gmrs Thk1 3mm S1 S2 Tibial Modular Rotate Hinge Proximal - [id number] Start: 03-19-2018 Bushing Femoral Modular Rotate Hinge Knee - [id number] Start: 11-06-2019 Insert Gmrs Neut ral Bumper Modular Rotate Hinge Knee Proximal - [id number] Start: 11-06-2019 Sleeve Tibial Mo dular Rotate Hinge Knee - [id number] Start: 11-06-2019 Insert Gmrs Thk1 3mm S1 S2 Tibial Modular Rotate Hinge Proximal - [id number] Start: 11-06-2019 Axle Femoral Mod ular Rotate Hinge Knee - [id number] Start: 11-06-2019 Component Xs Sma ll Medium Tibial Rotate Hinge Knee - [id number] Start: 11-06-2019 Bushing Femoral Modular Rotate Hinge Knee - [id number] Start: 11-06-2019 Bushing Femoral Modular Rotate Hinge Knee - [id number] Start: 12-19-2020 Bushing Femoral Modular Rotate Hinge Knee - [id number] Start: 12-19-2020 Component Xs Sma ll Medium Tibial Rotate Hinge Knee - [id number] Start: 12-19-2020 Insert Gmrs Thk1 3mm S1 S2 Tibial Modular Rotate Hinge Proximal - [id number] Start: 12-19-2020 Sleeve Tibial Mo dular Rotate Hinge Knee - [id number] Start: 12-19-2020 Insert Gmrs Neut ral Bumper Modular Rotate Hinge Knee Proximal - [id number] Start: 12-19-2020 Axle Femoral Mod ular Rotate Hinge Knee - [id number] Start: 12-19-2020 Component Triath rafiq 32mm Asymmetric X3 10mm Patellar Knee - [id number] Start: 06-06-2016 Component Triath rafiq 32mm Asymmetric X3 10mm Patellar Knee - [id number] Start: 01-28-2017 Comment on above: Description: triathl on X3 asymmetric patella Component Gmrs M edium [id number] Femoral Modular Rotate Hinge Knee Left - [id number] Start: 03-19-2018 Component Gmrs S mall Titanium [id number] Femoral Modular Rotate Hinge Knee - [id number]_imp Start: 03-19-2018 Mesh Marlex Polypropylene [id number] Surgical Patch Flat Sheet Knit Hernia - [id number] Start: 07-06-2017 Comment on above: Description: bard me sh Mesh Marlex Polypropylene [id number] Surgical Patch Flat Sheet Knit Hernia - [id number] Start: 03-19-2018 Baseplate Triath rafiq 6 Tibial Primary Cement Knee - [id number] Start: 06-06-2016 Baseplate Triath rafiq 5 Tibial Primary Cement Knee - [id number] Start: 01-28-2017 Comment on above: Description: triathl on primary tibial baseplate Baseplate S2 Tib ial Modular Rotate Hinge Knee - [id number] Start: 03-19-2018 Washer 6.5 / 8.0 mm Asnis 3 - [id number] Start: 07-06-2017 Comment on above: Description: rosy CHRISTINA CHECK Functional Status Date Assessment Result Facility 01-08-2021 Are you deaf, or do you have serious difficulty hearing No 01/08/2021 2:54 PM EDT Turner Patten RN No [facility] 01-08-2021 Are you blind, or do you have serious difficulty seeing, even when wearing glasses No 01/08/2021 2:54 PM EDT Turner Patten, MUSHTAQ No [facility] 01-08-2021 Do you have serious difficulty walking or climbing stairs Yes 01/08/2021 2:54 PM EDT Turner Patten, MUSHTAQ Yes [facility] 01-08-2021 Do you have difficul ty dressing or bathing Yes 01/08/2021 2:54 PM EDT Turner Patten, RN Yes [facility] 01-08-2021 Because of a physica l, mental, or emotional condition, do you have difficulty doing errands alone such as visiting a physician's office or shopping Yes 01/08/2021 2:54 PM EDT Turner Patten, MUSHTAQ Yes [facility] Mental Status Date Assessment Result Facility 01-08-2021 Because of a physica l, mental, or emotional condition, do you have serious difficulty concentrating, remembering, or making decisions No 01/08/2021 2:54 PM EDT Turner Patten, MUSHTAQ No [facility] Clinical Notes 11-26-2017 to 10-20-2024 Telephone Encounter - Moreno Oates MD - 10/14/2024 4:49 PM EDTTelephone Encounter - Moreno Oates MD - 10/14/2024 4:49 PM EDTTelephone Encounter - Fadumo Rahman LPN - 07/22/2024 1:42 PM EST Note Date & Type Note Facility 10-20-2024 Note Hospitalist Discharg e Summary Charlie Nguyen : 1955 Admit date: 10/17/2024 Discharge date: 10/20/2024 Admitting Physician: Red Guidry DO Primary Care Physician: Moreno Oates Visit Status: admission Code Status: Full Code Discharge Diagnoses: Acute metabolic encephalopathy 2/2 UTI Acute UTI Simple sepsis 2/2 UTI COPD with chronic SILVEIRA Chronic hypoxic respiratory failure Hx of schizoaffective disorder HTN Depression Chronic pain syndrome Anxiety Hospital Course: Patient with chronic hypoxic respiratory failure who resides at LT facility presenting for several days of worsening hallucinations, AMS. Patient found to have simple sepsis with UTI. UC growing out providencia stuartii. Discussed with ID abx stewardship committee, patient completed 3 day course of IV abx. Sensitivities sensitive to current abx course. Mentation improved. Labs and vitals improved. Patient to follow up with PCP outpatient in 1-2 weeks. She is discharged back to SNF in improved and stable condition on 10/20/24. Consults: IP CONSULT TO WOUND PREVENTION Discharge Instructions: Diet: Adult diet Regular; Low Sodium (2 gm) Activity: as tolerated Recommended Outpatient Tests: Disposition: Patient discharged in stable condition to SNF LABS: CBC: Recent Labs 10/17/24 1312 10/18/24 0315 10/19/24 0608 WBC 16.1* 13.9* 10.6 RBC 4.46 4.79 4.32 HGB 14.3 15.3 13.9 HCT 43.4 47.6* 42.7 MCV 97.3 99.4* 98.8 RDW 14.4 14.4 14.4 PLT 209 202 207 BMP: Recent Labs 10/17/24 1312 10/18/24 0315 10/19/24 0608 NA 134* 134* 135* K 4.5 4.1 4.0 CL 100 99 101 CO2 24 24 25 BUN 21 22 23 CREATININE 0.82 0.85 0.82 GLUCOSE 135* 106 107 CALCIUM 8.9 9.2 8.6* ANIONGAP 10 11 9 LIVER PROFILE:No results for input(s): AST, ALT, BILITOT, ALKPHOS, PROT in the last 72 hours. No lab exists for component: LABALBU PT/INR: No results for input(s): PROTIME, INR in the last 72 hours. CARDIAC ENZYMES: No results for input(s): TROPONINI in the last 72 hours. Procalcitonin: No results found for: PROCAL COVID-19 PCR: No results for input(s): COVID19 in the last 72 hours. Vitals: BP 106/71 (BP Location: Left arm, Patient Position: Lying) Pulse 70 Temp 36.3 ?C (97.3 ?F) (Temporal) Resp 18 Ht 5' 11 (1.803 m) Wt 250 lb (113 kg) SpO2 94% BMI 34.87 kg/m? Pulse Ox: SpO2 Av % Min: 94 % Max: 96 % Supplemental O2: O2 Flow Rate (L/min): 2 L/min General appearance: No apparent distress, appears stated age, female in NAD, obese Respiratory: CTA BL, Cardiovascular: S1 and S2 present, no murmur detected Abdomen: Soft, non-tender, non-distended Skin: Skin color, texture, turgor normal. No rashes or lesions. Distal pulses intact in BL LE, trace BL LE edema present. Neurologic: grossly non-focal. Discharge Medications: Medication List CHANGE how you take these medications diazePAM 5 MG tablet Commonly known as: Valium Take 1 tablet (5 mg) by mouth 2 times daily as needed for anxiety. What changed: when to take this reasons to take this CONTINUE taking these medications amLODIPine 5 MG tablet Commonly known as: Norvasc apixaban 5 MG tablet Commonly known as: Eliquis calcium carbonate 500 MG chewable tablet Commonly known as: Tums cilostazol 100 MG tablet Commonly known as: Pletal furosemide 20 MG tablet Commonly known as: Lasix loperamide 2 MG capsule Commonly known as: Imodium Melatonin 3 MG capsule metoprolol tartrate 50 MG tablet Commonly known as: Lopressor oxyCODONE-acetaminophen 5-325 MG tablet Commonly known as: Percocet Take 1 tablet by mouth every 6 hours as needed for severe pain (7-10). PARoxetine 40 MG tablet Commonly known as: Paxil potassium chloride CR 20 MEQ ER tablet Commonly known as: Klor-Con M20 pravastatin 10 MG tablet Commonly known as: Pravachol pregabalin 100 MG capsule Commonly known as: Lyrica Take 1 capsule (100 mg) by mouth 2 times daily. STOP taking these medications doxycycline 100 MG capsule Commonly known as: Vibramycin Where to Get Your Medications You can get these medications from any pharmacy Bring a paper prescription for each of these medications diazePAM 5 MG tablet oxyCODONE-acetaminophen 5-325 MG tablet pregabalin 100 MG capsule Recommended Follow-up: PCP outpatient in 1-2 weeks. @[email or web address]@ Complexity of Follow up: [] Moderate Complexity: follow up within 7-14 calendar days (72728) [x] Severe Complexity: follow up within 7 calendar days (79764) Follow up Testing, Pending results or Referrals at Transitional Care Visit: [x] yes [] no Instructions to MA: Please call patient on day after discharge (must document patient contacted within 2 business days of discharge). Follow up questions for MA: 1. Did you get medications filled and taking them as instructed from discharge? 2. Are you following your discharge instructions from (more content not included)... [facility] 10-20-2024 Note PHYSICAL THERAPY [facility] Initial Evaluation Name/MRN: Charlie Nguyen ([id number]) Evaluation Date: 10/20/2024 Date of : 1955 Admission Date: 10/17/2024 12:22 PM Age: 69 y.o. Room/Bed: [facility] A Discharge Recommendation: ECF with PT, Halfway Facility Assessment IMPRESSION: Pt is a 69yo female admitted to ED on 10/17 from [facility] with complaints of AMS and fever. Staff reports pt has been hallucinating. Pt found to have UTI. Prior to admission, pt lived at [facility] for ~3 years. Pt states she was completing transfers independently between surfaces and would propel herself around facility in w/c. On eval, pt required Min A for bed mobility. Pt sat on EOB ~6 min and declines attempts at transfer despite encouragement. Pt is limited by cognition, decreased strength, and fatigue. Pt will benefit from skilled PT services in order to increase safety and independence in functional mobility. Recommend return to [facility] with PT at discharge. Admitting Diagnosis: UTI Prognosis: good Performance Deficits /Impairments: Increased Pain, Decreased Functional Mobility, Decreased ADL status, Decreased Strength, Decreased Safety Awareness, Decreased Endurance, Decreased Balance, Decreased ROM, Decreased High Level IADLs, and Decreased Cognition Decision Making: Medium Complexity Subjective Pt supine in bed. Pt requires encouragement for participation in therapy. Per RN, pt okay for therapy. Pain: RN managing pain. - pt reports pain, but does not formally rate or location. RN in room to give pain medication. Past Medical History: Medical History[1] Past Surgical History: Surgical History[2] Admission Diagnosis: Patient Active Problem List Diagnosis Date Noted UTI (urinary tract infection) 10/17/2024 Contusion of right knee 02/03/2020 Benzodiazepine dependence (HCC) 01/31/2020 Generalized weakness 01/27/2020 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[facility]) 11/04/2019 Intentional drug overdose ([facility]) 10/25/2019 Aspiration pneumonia (CMS/HCC) ([facility]) 10/25/2019 Drug overdose, multiple drugs, accidental or unintentional, initial encounter 10/25/2019 Palliative care encounter 10/20/2019 Unspecified mood (affective) disorder ([facility]) 10/12/2019 Acute respiratory failure with hypoxia ([facility]) 10/08/2019 Hypertension 03/26/2015 Chronic nonintractable headache 03/26/2015 Glioma ([facility]) 02/08/2015 Migraine 12/11/2014 Internal derangement of right knee 12/11/2014 Medical Precautions: No active isolations Proper PPE donned/doffed in accordance with facility standards. Fall Risk: Hung Fall Risk Score: 35 (Low Risk) Hung Fall Risk Score: 35 (Medium Risk) Precautions/Restrictions: N/A Family/Caregiver Present: none Overall Cognitive Status: Exceptions - Following commands: follows one step commands with increased time and follows one step commands with repetition - Attention span: attends with cues to redirect - Memory: decreased recall of recent events - Safety judgement: decreased awareness of need for assistance and decreased awareness of need for safety - Problem solving: assistance required to generate solutions and assistance required to implement solutions - Insights: decreased awareness of deficits - Initiation: requires cues for some - Sequencing: requires cues for some Overall Orientation Status: Oriented to Place, Oriented to Time, Oriented to Person, and Disoriented to Situation Vision: Not Assessed Hearing: normal Social/Functional History Patient admitted from SNF. Assistive Equipment: wheelchair - manual Prior Level of Function Prior Level of ADL Function: Independent Prior Level of Mobility: Required Assist; Device: Wheelchair - manual Prior Level of Transfers: Independent Objective Lower Extremity Assessment AROM: WFL Strength: Exceptions: generalized weakness noted in B LE, but >3/5 as noted during functional mobility. Balance: Balance During Session: Posture: fair Pt completes sitting EOB ~6 min during session independently. Pt denies any dizziness with sitting upright. Bed Mobility: Supine to sit: Min Assist Pt completes supine to sit with Min A. Pt completes with increased time to move B LE over to EOB. Pt was assisted with lifting trunk upright. Pt sitting on EOB at end of session. Transfers Pt declines transfer despite encouragement. Outcome Measures AM-PAC How much HELP from another person do you currently need Turning from your back to your side while in a flat bed without using bedrails?: A Little Moving from lying on your back to sitting on the side of a flat bed without using bedrails?: A Little Moving to and from a bed to a chair (including a wheelchair)?: Total Standing up from a chair using your arms (wheelchair or bedside chair)?: Total Walking in a hospital room?: Total Stair climbing assessed?: No AM-PAC Inpatient Mobility Raw Score (No Stairs) : 9 JH-HLM -HLM Score: Sat at edge of b (more content not included)... [facility] 10-19-2024 Note [facility] Respiratory Care Department Progress Note Comment or reasoning for refusal: Patient was seen in attempts to fulfill CPAP/BiPAP/AutoPAP order. Patient refused PAP therapy/study at this time. Patient was educated on medical need and reasoning for physician order to ensure patient was making an informed medical decision. All of the patient's questions were answered at this time and patient was informed that if the patient changes their mind regarding wearing PAP to hit their call light or inform their nurse to contact Respiratory. A second, consecutive night of refusing PAP therapy/study results in order completion in the EMR. If future CPAP/BiPAP/AutoPAP therapy or study is indicated please place another order in the EMR and the assigned Respiratory Therapist will reattempt to fulfill orders. Thank you for involving Respiratory in the care of this patient, [facility] 10-19-2024 Note Hospitalist Progress Note 10/19/2024 [phone]: Please page me ([phone]) for patient care issues. [phone]: Please page [facility] Hospitalist for any issues. Subjective: Admit Date: 10/17/2024 PCP: Moreno Oates Room#: B2-256/B2-256 A Interval History: patient admitted for AMS. No overnight issues. Complaints reported by patient: she denies issues. She reports feeling well. She denies fevers, chills, sweats. Adult diet Regular; Low Sodium (2 gm) 24HR INTAKE/OUTPUT: Intake/Output Summary (Last 24 hours) at 10/19/2024 1405 Last data filed at 10/19/2024 0927 Gross per 24 hour Intake 800 ml Output 600 ml Net 200 ml Past Medical History: Medical History[1] LABS: CBC: Recent Labs 10/17/24 1312 10/18/24 0315 10/19/24 0608 WBC 16.1* 13.9* 10.6 RBC 4.46 4.79 4.32 HGB 14.3 15.3 13.9 HCT 43.4 47.6* 42.7 MCV 97.3 99.4* 98.8 RDW 14.4 14.4 14.4 PLT 209 202 207 BMP: Recent Labs 10/17/24 1312 10/18/24 0315 10/19/24 0608 NA 134* 134* 135* K 4.5 4.1 4.0 CL 100 99 101 CO2 24 24 25 BUN 21 22 23 CREATININE 0.82 0.85 0.82 GLUCOSE 135* 106 107 CALCIUM 8.9 9.2 8.6* ANIONGAP 10 11 9 LIVER PROFILE:No results for input(s): AST, ALT, BILITOT, ALKPHOS, PROT in the last 72 hours. No lab exists for component: LABALBU PT/INR: No results for input(s): PROTIME, INR in the last 72 hours. CARDIAC ENZYMES: No results for input(s): TROPONINI in the last 72 hours. Procalcitonin: No results found for: PROCAL COVID-19 PCR: No results for input(s): COVID19 in the last 72 hours. Objective: Vitals: BP 102/69 (BP Location: Right arm, Patient Position: Lying) Pulse 81 Temp 36.2 ?C (97.1 ?F) (Temporal) Resp 16 Ht 5' 11 (1.803 m) Wt 250 lb (113 kg) SpO2 93% BMI 34.87 kg/m? Pulse Ox: SpO2 Av.8 % Min: 91 % Max: 93 % Supplemental O2: O2 Flow Rate (L/min): 4 L/min General appearance: No apparent distress, appears stated age, female in NAD Respiratory: CTA BL, no wheezing. Cardiovascular: S1 and S2 present, no murmur detected Abdomen: Soft, non-tender, non-distended Skin: Skin color, texture, turgor normal. No rashes or lesions. Distal pulses intact in BL LE, trace BL LE edema present. Neurologic: grossly non-focal. Medications: Continuous Meds[2] Scheduled Meds[3] Assessment Acute metabolic encephalopathy 2/2 UTI Acute UTI Simple sepsis 2/2 UTI Cover with broad spectrum abx UC pending, BC not obtained in the ED Mentation improved since starting on abx WBC trending down COPD with chronic SILVEIRA Chronic hypoxic respiratory failure On baseline 3-4L via NC Hx of schizoaffective disorder HTN Depression Chronic pain syndrome Anxiety Home medications reviewed and resumed as indicated. Medical Decision Making 10/18/24: Patient with chronic hypoxic respiratory failure who resides at LT facility presenting for several days of worsening hallucinations, AMS. Patient found to have simple sepsis with UTI. UC pending. Cover with broad spectrum abx. BC not obtained in the ED. Continue IV abx currently. Mentation improved today. Tolerating PO intake well. Home medications resumed as indicated. Labs and vitals otherwise reviewed and stable. CBC and BMP in the AM. 10/19/24: continues to improve. Encouraged PO intake. Awaiting final culture results. Labs and vitals reviewed and stable. Will discuss abx choices with abx stewardship committee tomorrow. CBC and BMP in the AM. -DVT prophylaxis: [] Lovenox [] Heparin [] SCDs [x] Encourage ambulation [x] Already on Anticoagulation Anticipated Discharge - Date - 10/20 - Location - Skilled Facility - Pending the following - improvement in UTI. UC Toxic drug monitoring/narrow therapeutic index drug monitoring : # Drug name : # Route administered : # Method of monitoring : Extended Emergency Contact Information Primary Emergency Contact: Vicente Driscoll Mobile Relation: Daughter Red Guidry DO Division of Hospitalist Medicine Inpatient Medical Services[facility] PAGER: Epic chat [1] Past Medical History: Diagnosis Date Anxiety Benign neoplasm of brain (HCC) Brain tumor (HCC) 02/01/2015 Found small tumor, has appt with neurologist in May Chronic back pain Chronic pain syndrome Cognitive communication deficit COVID-19 Depression GERD (gastroesophageal reflux disease) Headache Hypertension Ischemic colitis (HCC) MRSA (methicillin resistant Staphylococcus aureus) MS (multiple sclerosis) (HCC) Schizoaffective disorder (CMS/HCC) (HCC) Tobacco use [2] [3] amLODIPine, 5 mg, Oral, Daily apixaban, 5 mg, Oral, BID cefTRIAXone, 1 g, IntraVENous, q24h cilostazol, 100 mg, Oral, BID furosemide, 20 mg, Oral, Daily metoprolol tartrate, 50 mg, Oral, BID PARoxetine, 40 mg, Oral, q AM potassium chloride CR, 20 mEq, Oral, BID pravastatin, 10 mg, Oral, Nightly pregabalin, 100 mg, Oral, (more content not included)... [facility] 10-19-2024 Note Patient sleeping com fortably, will attempt smoking cessation counseling at a later time. [facility] 10-18-2024 Note Hospitalist Progress Note 10/18/2024 [phone]: Please page me ([phone]) for patient care issues. [phone]: Please page [facility] night Hospitalist for any issues. Subjective: Admit Date: 10/17/2024 PCP: Moreno Oates Room#: B2-256/B2-256 A Interval History: patient admitted for AMS. No overnight issues. Complaints reported by patient: she is unsure over the events of the last few days. She reports good appetite today. She endorses some mild SILVEIRA that is chronic for her. Adult diet Regular; Low Sodium (2 gm) 24HR INTAKE/OUTPUT: Intake/Output Summary (Last 24 hours) at 10/18/2024 1502 Last data filed at 10/18/2024 0914 Gross per 24 hour Intake 230 ml Output 300 ml Net -70 ml Past Medical History: Medical History[1] LABS: CBC: Recent Labs 10/17/24 1312 10/18/24 0315 WBC 16.1* 13.9* RBC 4.46 4.79 HGB 14.3 15.3 HCT 43.4 47.6* MCV 97.3 99.4* RDW 14.4 14.4 PLT 209 202 BMP: Recent Labs 10/17/24 1312 10/18/24 0315 NA 134* 134* K 4.5 4.1 CL 100 99 CO2 24 24 BUN 21 22 CREATININE 0.82 0.85 GLUCOSE 135* 106 CALCIUM 8.9 9.2 ANIONGAP 10 11 LIVER PROFILE:No results for input(s): AST, ALT, BILITOT, ALKPHOS, PROT in the last 72 hours. No lab exists for component: LABALBU PT/INR: No results for input(s): PROTIME, INR in the last 72 hours. CARDIAC ENZYMES: No results for input(s): TROPONINI in the last 72 hours. Procalcitonin: No results found for: PROCAL COVID-19 PCR: No results for input(s): COVID19 in the last 72 hours. Objective: Vitals: BP 133/86 (BP Location: Left arm, Patient Position: Lying) Pulse 87 Temp 38 ?C (100.4 ?F) (Oral) Resp 18 Ht 5' 11 (1.803 m) Wt 250 lb (113 kg) SpO2 94% BMI 34.87 kg/m? Pulse Ox: SpO2 Av.3 % Min: 92 % Max: 94 % Supplemental O2: O2 Flow Rate (L/min): 4 L/min General appearance: No apparent distress, appears stated age, female in NAD Respiratory: CTA BL Cardiovascular: S1 and S2 present, no murmur detected Abdomen: Soft, non-tender, non-distended Skin: Skin color, texture, turgor normal. No rashes or lesions. Distal pulses intact in BL LE, trace BL LE edema present. Neurologic: grossly non-focal. Medications: Continuous Meds[2] Scheduled Meds[3] Assessment Acute metabolic encephalopathy 2/2 UTI Acute UTI Simple sepsis 2/2 UTI Cover with broad spectrum abx UC pending, BC not obtained in the ED Mentation improved since starting on abx WBC trending down COPD with chronic SILVEIRA Chronic hypoxic respiratory failure On baseline 3-4L via NC Hx of schizoaffective disorder HTN Depression Chronic pain syndrome Anxiety Home medications reviewed and resumed as indicated. Medical Decision Making 10/18/24: Patient with chronic hypoxic respiratory failure who resides at LTC facility presenting for several days of worsening hallucinations, AMS. Patient found to have simple sepsis with UTI. UC pending. Cover with broad spectrum abx. BC not obtained in the ED. Continue IV abx currently. Mentation improved today. Tolerating PO intake well. Home medications resumed as indicated. Labs and vitals otherwise reviewed and stable. CBC and BMP in the AM. -DVT prophylaxis: [] Lovenox [] Heparin [] SCDs [x] Encourage ambulation [x] Already on Anticoagulation Anticipated Discharge - Date - 10/19 vs 10/20 - Location - Skilled Facility - Pending the following - improvement in UTI. UC Toxic drug monitoring/narrow therapeutic index drug monitoring : # Drug name : # Route administered : # Method of monitoring : Extended Emergency Contact Information Primary Emergency Contact: Vicente Driscoll Mobile Relation: Daughter Red Guidry DO Division of Hospitalist Medicine Inpatient Medical Services/[facility] [place] PAGER: Jinni chat [1] Past Medical History: Diagnosis Date Anxiety Benign neoplasm of brain (HCC) Brain tumor (HCC) 02/01/2015 Found small tumor, has appt with neurologist in May Chronic back pain Chronic pain syndrome Cognitive communication deficit COVID-19 Depression GERD (gastroesophageal reflux disease) Headache Hypertension Ischemic colitis (HCC) MRSA (methicillin resistant Staphylococcus aureus) MS (multiple sclerosis) (HCC) Schizoaffective disorder (CMS/HCC) (HCC) Tobacco use [2] [3] amLODIPine, 5 mg, Oral, Daily apixaban, 5 mg, Oral, BID cefTRIAXone, 1 g, IntraVENous, q24h cilostazol, 100 mg, Oral, BID furosemide, 20 mg, Oral, Daily metoprolol tartrate, 50 mg, Oral, BID PARoxetine, 40 mg, Oral, q AM potassium chloride CR, 20 mEq, Oral, BID pravastatin, 10 mg, Oral, Nightly pregabalin, 100 mg, Oral, BID [facility] 10-18-2024 Note SNF [facility] per [facility] request. Awaiting review and response regarding ability to accept. [facility] notified. [facility] 10-17-2024 Note Attending History an d Physical Admit Date: 10/17/2024 PCP: Moreno Oates CHIEF COMPLAINT: Altered mental status Reason for Admission: UTI History Obtained From: ER provider HISTORY OF PRESENT ILLNESS: Charlie is a 69 y.o. female with past medical history significant for anxiety, chronic pain syndrome, depression, hypertension, ischemic colitis, schizoaffective disorder. Patient was brought into the emergency room with chief complaint of altered mental status and fever. Patient has been hallucinating for past couple days and making comments regarding family members who have . Patient currently resides in a custodial and staff were concerned regarding patient developing UTI. Patient also had cough. Patient did had low-grade fever though. Past Medical History: Medical History[1] Past Surgical History: Surgical History[2] Social History: Social History Socioeconomic History Marital status: Spouse name: Not on file Number of children: Not on file Years of education: Not on file Highest education level: Not on file Occupational History Not on file Tobacco Use Smoking status: Every Day Current packs/day: 1.00 Types: Cigarettes Smokeless tobacco: Never Substance and Sexual Activity Alcohol use: No Alcohol/week: 0.0 standard drinks of alcohol Drug use: No Sexual activity: Not on file Other Topics Concern Not on file Social History Narrative Not on file Social Drivers of Health Financial Resource Strain: Low Risk (11/05/2019) Received from [facility] Overall Financial Resource Strain (CARDIA) Difficulty of Paying Living Expenses: Not very hard Food Insecurity: Food Insecurity Present (11/05/2019) Received from [facility] Hunger Vital Sign Worried About Running Out of Food in the Last Year: Sometimes true Ran Out of Food in the Last Year: Sometimes true Transportation Needs: No Transportation Needs (11/05/2019) Received from [facility] PRAPARE - Transportation Lack of Transportation (Medical): No Lack of Transportation (Non-Medical): No Physical Activity: Not on file Stress: Not on file Social Connections: Not on file Intimate Partner Violence: Not At Risk (10/17/2024) Humiliation, Afraid, Rape, and Kick questionnaire Fear of Current or Ex-Partner: No Emotionally Abused: No Physically Abused: No Sexually Abused: No Housing Stability: Not on file Family History: Family History[3] Medications Prior to Admission: Current Medications[4] Allergies: Allergies[5] REVIEW OF SYSTEMS: Constitutional: Negative for chills, activity change and unexpected weight change. Positive for fever HEENT: Negative for congestion, postnasal drip and sneezing. Eyes: Negative for itching and visual disturbance. Respiratory: Negative for apnea, cough, choking, chest tightness, shortness of breath, wheezing and stridor. Cardiovascular: Negative for chest pain. Gastrointestinal: Negative for nausea, vomiting, abdominal pain, diarrhea and blood in stool. Genitourinary: Negative for dysuria, frequency and flank pain. Musculoskeletal: Negative for myalgias and joint swelling. Skin: Negative for rash. Neurological: Negative for dizziness, tremors, seizures, syncope, facial asymmetry, speech difficulty, weakness, numbness and headaches. Positive for change in mental status Hematological: Negative for adenopathy. Psychiatric/Behavioral: Negative for suicidal ideas, behavioral problems, self-injury and dysphoric mood. Vitals: BP 134/72 (BP Location: Left arm) Pulse 84 Temp 37.1 ?C (98.8 ?F) (Oral) Resp 20 Ht 5' 11 (1.803 m) Wt 250 lb (113 kg) SpO2 94% BMI 34.87 kg/m? BMI Classification: Obese (BMI 30.0-39.9) Pulse Ox: SpO2 Av.1 % Min: 92 % Max: 94 % Supplemental O2: O2 Flow Rate (L/min): 4 L/min PHYSICAL EXAM: Constitutional: General: Patient is not in acute distress. Appearance: Normal appearance. HENT: Head: Normocephalic and atraumatic. Right Ear: External ear normal. Left Ear: External ear normal. Mouth/Throat: Mouth: Mucous membranes are moist. Pharynx: Oropharynx is clear. Eyes: Extraocular Movements: Extraocular movements intact. Conjunctiva/sclera: Conjunctivae normal. Pupils: Pupils are equal, round, and reactive to light. Cardiovascular: Comments: Regular rate and rhythm, normal S1-S2, no murmurs noted. Radial pulses 2+ and symmetric. Pulmonary: Effort: Pulmonary effort is normal. No respiratory distress. Breath sounds: Normal breath sounds. No stridor. No wheezing or rhonchi. Abdominal: Comments: The abdomen is soft, nondistended and nontender. There is no rebound tenderness or guarding. Bowel sounds are normal. Skin: General: Skin is warm and dry. Capillary Refill: Capillary refill takes less than 2 seconds. Coloration: Skin is not jaundiced or pale. Findings: No bruising or erythema. Neurological: General: No focal deficit present. Mental S (more content not included)... [facility] 10-14-[address] [facility] patient. The following approved medication requests have been transmitted electronically. Requested Prescriptions Signed Prescriptions Disp Refills diazePAM (VALIUM) 5 mg tablet 60 tablet 0 Sig: Take 1 tablet by mouth two times a day for 30 days. Authorizing Provider: MORENO OATES oxyCODONE-acetaminophen (PERCOCET) 5-325 mg tablet 120 tablet 0 Sig: Take 1 tablet by mouth every 6 hours for 30 days. Authorizing Provider: MORENO OATES pregabalin (LYRICA) 150 mg capsule 60 capsule 0 Sig: Take 1 capsule by mouth two times a day for 30 days. Authorizing Provider: MORENO OATES MD [facility] 10-14-[address] [facility] patient. The following approved medication requests have been transmitted electronically. Requested Prescriptions Signed Prescriptions Disp Refills diazePAM (VALIUM) 5 mg tablet 60 tablet 0 Sig: Take 1 tablet by mouth two times a day for 30 days. Authorizing Provider: MORENO OATES oxyCODONE-acetaminophen (PERCOCET) 5-325 mg tablet 120 tablet 0 Sig: Take 1 tablet by mouth every 6 hours for 30 days. Authorizing Provider: MORENO OATES pregabalin (LYRICA) 150 mg capsule 60 capsule 0 Sig: Take 1 capsule by mouth two times a day for 30 days. Authorizing Provider: MORENO OATES MD documented in this encounter [facility] 09-16-2024 Telephone encounter Note Pt resides at [facility] The following approved medication requests have been transmitted electronically. Requested Prescriptions Signed Prescriptions Disp Refills diazePAM (VALIUM) 5 mg tablet 60 tablet 0 Sig: Take 1 tablet by mouth two times a day for 30 days. Authorizing Provider: MORENO OATES oxyCODONE-acetaminophen (PERCOCET) 5-325 mg tablet 120 tablet 0 Sig: Take 1 tablet by mouth every 6 hours for 30 days. Authorizing Provider: MORENO OATES pregabalin (LYRICA) 150 mg capsule 60 capsule 0 Sig: Take 1 capsule by mouth two times a day for 30 days. Authorizing Provider: MORENO OATES MD [facility] 09-16-2024 Miscellaneous Notes Pt resides at [facility] The following approved medication requests have been transmitted electronically. Requested Prescriptions Signed Prescriptions Disp Refills diazePAM (VALIUM) 5 mg tablet 60 tablet 0 Sig: Take 1 tablet by mouth two times a day for 30 days. Authorizing Provider: MORENO OATES oxyCODONE-acetaminophen (PERCOCET) 5-325 mg tablet 120 tablet 0 Sig: Take 1 tablet by mouth every 6 hours for 30 days. Authorizing Provider: MORENO OATES pregabalin (LYRICA) 150 mg capsule 60 capsule 0 Sig: Take 1 capsule by mouth two times a day for 30 days. Authorizing Provider: MORENO OATES MD documented in this encounter [facility] 08-18-2024 Telephone encounter Note The following approved medication requests have been transmitted electronically. Requested Prescriptions Signed Prescriptions Disp Refills diazePAM (VALIUM) 5 mg tablet 60 tablet 0 Sig: Take 1 tablet by mouth two times a day for 30 days. Authorizing Provider: MORENO OATES oxyCODONE-acetaminophen (PERCOCET) 5-325 mg tablet 120 tablet 0 Sig: Take 1 tablet by mouth every 6 hours for 30 days. Authorizing Provider: MORENO OATES pregabalin (LYRICA) 150 mg capsule 60 capsule 0 Sig: Take 1 capsule by mouth two times a day for 30 days. Authorizing Provider: MORENO OATES MD [facility] 08-18-2024 Miscellaneous Notes The following approved medication requests have been transmitted electronically. Requested Prescriptions Signed Prescriptions Disp Refills diazePAM (VALIUM) 5 mg tablet 60 tablet 0 Sig: Take 1 tablet by mouth two times a day for 30 days. Authorizing Provider: MORENO OATES oxyCODONE-acetaminophen (PERCOCET) 5-325 mg tablet 120 tablet 0 Sig: Take 1 tablet by mouth every 6 hours for 30 days. Authorizing Provider: MORENO OATES pregabalin (LYRICA) 150 mg capsule 60 capsule 0 Sig: Take 1 capsule by mouth two times a day for 30 days. Authorizing Provider: MORENO OATES MD documented in this encounter [facility] 07-22-2024 Telephone encounter Note senior living patient. [facility] 07-22-2024 Miscellaneous Notes senior living patient. documented in this encounter [facility] 07-18-2024 Telephone encounter Note Received 07/18/2024 from [facility]. Placed in provider's inbox for review. Route to [place] for scanning. [facility] 07-18-2024 Miscellaneous Notes Received 07/18/2024 from [facility]. Placed in provider's inbox for review. Route to [place] for scanning. documented in this encounter [facility] 06-23-2024 Telephone encounter Note The following approved medication requests have been transmitted electronically. Requested Prescriptions Signed Prescriptions Disp Refills diazePAM (VALIUM) 5 mg tablet 60 tablet 0 Sig: Take 1 tablet by mouth two times a day for 30 days. Authorizing Provider: MORENO OATES oxyCODONE-acetaminophen (PERCOCET) 5-325 mg tablet 120 tablet 0 Sig: Take 1 tablet by mouth every 6 hours for 30 days. Authorizing Provider: MORENO OATES pregabalin (LYRICA) 150 mg capsule 60 capsule 0 Sig: Take 1 capsule by mouth two times a day for 30 days. Authorizing Provider: MORENO OATES MD [facility] 06-23-2024 Miscellaneous Notes The following approved medication requests have been transmitted electronically. Requested Prescriptions Signed Prescriptions Disp Refills diazePAM (VALIUM) 5 mg tablet 60 tablet 0 Sig: Take 1 tablet by mouth two times a day for 30 days. Authorizing Provider: MORENO OATES oxyCODONE-acetaminophen (PERCOCET) 5-325 mg tablet 120 tablet 0 Sig: Take 1 tablet by mouth every 6 hours for 30 days. Authorizing Provider: MORENO OATES pregabalin (LYRICA) 150 mg capsule 60 capsule 0 Sig: Take 1 capsule by mouth two times a day for 30 days. Authorizing Provider: MORENO OATES MD documented in this encounter [facility] 05-24-2024 Telephone encounter Note The following approved medication requests have been transmitted electronically. Requested Prescriptions Signed Prescriptions Disp Refills pregabalin (LYRICA) 150 mg capsule 60 capsule 0 Sig: Take 1 capsule by mouth two times a day for 30 days. Authorizing Provider: MORENO OATES diazePAM (VALIUM) 5 mg tablet 60 tablet 0 Sig: Take 1 tablet by mouth two times a day for 30 days. Authorizing Provider: MORENO OATES oxyCODONE-acetaminophen (PERCOCET) 5-325 mg tablet 120 tablet 0 Sig: Take 1 tablet by mouth every 6 hours for 30 days. Authorizing Provider: MORENO OATES MD [facility] 05-24-2024 Miscellaneous Notes The following approved medication requests have been transmitted electronically. Requested Prescriptions Signed Prescriptions Disp Refills pregabalin (LYRICA) 150 mg capsule 60 capsule 0 Sig: Take 1 capsule by mouth two times a day for 30 days. Authorizing Provider: MORENO OATES diazePAM (VALIUM) 5 mg tablet 60 tablet 0 Sig: Take 1 tablet by mouth two times a day for 30 days. Authorizing Provider: MORENO OATES oxyCODONE-acetaminophen (PERCOCET) 5-325 mg tablet 120 tablet 0 Sig: Take 1 tablet by mouth every 6 hours for 30 days. Authorizing Provider: MORENO OATES MD documented in this encounter [facility] 04-22-2024 Telephone encounter Note The following approved medication requests have been transmitted electronically. Requested Prescriptions Signed Prescriptions Disp Refills diazePAM (VALIUM) 5 mg tablet 60 tablet 0 Sig: Take 1 tablet by mouth two times a day for 30 days. Authorizing Provider: MORENO OATES MD [facility] 04-22-2024 Miscellaneous Notes The following approved medication requests have been transmitted electronically. Requested Prescriptions Signed Prescriptions Disp Refills diazePAM (VALIUM) 5 mg tablet 60 tablet 0 Sig: Take 1 tablet by mouth two times a day for 30 days. Authorizing Provider: MORENO OATES MD [facility] Pended please advise. documented in this encounter [facility] 04-22-2024 Telephone encounter Note The following approved medication requests have been transmitted electronically. [facility] pt Requested Prescriptions Signed Prescriptions Disp Refills oxyCODONE-acetaminophen (PERCOCET) 5-325 mg tablet 120 tablet 0 Sig: Take 1 tablet by mouth every 6 hours for 30 days. Authorizing Provider: MORENO OATES pregabalin (LYRICA) 150 mg capsule 60 capsule 0 Sig: Take 1 capsule by mouth two times a day for 30 days. Authorizing Provider: MORENO OATES MD [facility] 04-22-2024 Miscellaneous Notes The following approved medication requests have been transmitted electronically. [facility] pt Requested Prescriptions Signed Prescriptions Disp Refills oxyCODONE-acetaminophen (PERCOCET) 5-325 mg tablet 120 tablet 0 Sig: Take 1 tablet by mouth every 6 hours for 30 days. Authorizing Provider: MORENO OATES pregabalin (LYRICA) 150 mg capsule 60 capsule 0 Sig: Take 1 capsule by mouth two times a day for 30 days. Authorizing Provider: MORENO OATES MD documented in this encounter [facility] 04-21-2024 Telephone encounter Note Received refill request from [facility]. Pended please advise. [facility] 04-12-2024 Telephone encounter Note Received from [facility]. Placed in provider's inbox for review. [place] to [place] for scanning. [facility] 04-12-2024 Miscellaneous Notes Received from [facility]. Placed in provider's inbox for review. Route to [place] for scanning. documented in this encounter [facility] 03-31-2024 Telephone encounter Note Patient's request for medication has been refused. See reason and notify patient. Requested Prescriptions Refused Prescriptions Disp Refills oxyCODONE-acetaminophen (PERCOCET) 5-325 mg tablet 120 tablet 0 Sig: Take 1 tablet by mouth every 6 hours for 30 days. pregabalin (LYRICA) 150 mg capsule 60 capsule 0 Sig: Take 1 capsule by mouth two times a day for [address] [facility] 03-31-2024 Miscellaneous Notes Patient's request for medication has been refused. See reason and notify patient. Requested Prescriptions Refused Prescriptions Disp Refills oxyCODONE-acetaminophen (PERCOCET) 5-325 mg tablet 120 tablet 0 Sig: Take 1 tablet by mouth every 6 hours for 30 days. pregabalin (LYRICA) 150 mg capsule 60 capsule 0 Sig: Take 1 capsule by mouth two times a day for 30 days. Rx request from [facility] documented in this encounter [facility] 03-31-2024 Telephone encounter Note Rx request from [facility] 03-25-2024 Telephone encounter Note The following approved medication requests have been transmitted electronically. Requested Prescriptions Signed Prescriptions Disp Refills oxyCODONE-acetaminophen (PERCOCET) 5-325 mg tablet 120 tablet 0 Sig: Take 1 tablet by mouth every 6 hours for 30 days. Authorizing Provider: MORENO OATES pregabalin (LYRICA) 150 mg capsule 60 capsule 0 Sig: Take 1 capsule by mouth two times a day for 30 days. Authorizing Provider: MORENO OATES MD [facility] 03-25-2024 Miscellaneous Notes The following approved medication requests have been transmitted electronically. Requested Prescriptions Signed Prescriptions Disp Refills oxyCODONE-acetaminophen (PERCOCET) 5-325 mg tablet 120 tablet 0 Sig: Take 1 tablet by mouth every 6 hours for 30 days. Authorizing Provider: MORENO OATES pregabalin (LYRICA) 150 mg capsule 60 capsule 0 Sig: Take 1 capsule by mouth two times a day for 30 days. Authorizing Provider: MORENO OATES MD documented in this encounter [facility] 03-24-2024 Telephone encounter Note The following approved medication requests have been transmitted electronically. Requested Prescriptions Signed Prescriptions Disp Refills diazePAM (VALIUM) 5 mg tablet 60 tablet 0 Sig: Take 1 tablet by mouth two times a day for 30 days. Authorizing Provider: MORENO OATES MD [facility] 03-24-2024 Miscellaneous Notes The following approved medication requests have been transmitted electronically. Requested Prescriptions Signed Prescriptions Disp Refills diazePAM (VALIUM) 5 mg tablet 60 tablet 0 Sig: Take 1 tablet by mouth two times a day for 30 days. Authorizing Provider: MORENO OATES MD Refill request from [facility], pended. documented in this encounter [facility] 03-24-2024 Telephone encounter Note Refill request from [facility], pended. [facility] 03-17-2024 Telephone encounter Note [facility] Placed in provider's inbox for review. [place] to [place] fax [facility] 03-17-2024 Miscellaneous Notes [facility]. Placed in provider's inbox for review. Route to [place] fax documented in this encounter [facility] 03-10-2024 Telephone encounter Note Received outside lab results from [facility]. Placed in provider's inbox for review. Route to [place] scanning [facility] 03-10-2024 Miscellaneous Notes Received outside lab results from [facility]. Placed in provider's inbox for review. Route to [place] scanning documented in this encounter [facility] 02-26-[address] [facility] patient. . The following approved medication requests have been transmitted electronically. Requested Prescriptions Signed Prescriptions Disp Refills oxyCODONE-acetaminophen (PERCOCET) 5-325 mg tablet 120 tablet 0 Sig: Take 1 tablet by mouth every 6 hours for 30 days. Authorizing Provider: MORENO OATES pregabalin (LYRICA) 150 mg capsule 60 capsule 0 Sig: Take 1 capsule by mouth two times a day for 30 days. Authorizing Provider: MORENO OATES diazePAM (VALIUM) 5 mg tablet 60 tablet 0 Sig: Take 1 tablet by mouth two times a day for 30 days. Authorizing Provider: MORENO OATES MD [facility] 02-26-2024 Miscellaneous Notes [facility] patient. . The following approved medication requests have been transmitted electronically. Requested Prescriptions Signed Prescriptions Disp Refills oxyCODONE-acetaminophen (PERCOCET) 5-325 mg tablet 120 tablet 0 Sig: Take 1 tablet by mouth every 6 hours for 30 days. Authorizing Provider: MORENO OATES pregabalin (LYRICA) 150 mg capsule 60 capsule 0 Sig: Take 1 capsule by mouth two times a day for 30 days. Authorizing Provider: MORENO OATES diazePAM (VALIUM) 5 mg tablet 60 tablet 0 Sig: Take 1 tablet by mouth two times a day for 30 days. Authorizing Provider: MORENO OATES MD documented in this encounter [facility] 01-28-2024 [facility] Requested Prescriptions Signed Prescriptions Disp Refills oxyCODONE-acetaminophen (PERCOCET) 5-325 mg tablet 120 tablet 0 Sig: Take 1 tablet by mouth every 6 hours for 30 days. Authorizing Provider: MORENO OATES pregabalin (LYRICA) 150 mg capsule 60 capsule 0 Sig: Take 1 capsule by mouth two times a day for 30 days. Authorizing Provider: MORENO OATES [facility] 01-28-2024 [facility]isc[facility] Requested Prescriptions Signed Prescriptions Disp Refills oxyCODONE-acetaminophen (PERCOCET) 5-325 mg tablet 120 tablet 0 Sig: Take 1 tablet by mouth every 6 hours for 30 days. Authorizing Provider: MORENO OATES pregabalin (LYRICA) 150 mg capsule 60 capsule 0 Sig: Take 1 capsule by mouth two times a day for 30 days. Authorizing Provider: MORENO OATES Prescription Refill Information The patient has been identified by name and date of : Yes Caregiver verified no other encounters exist for this prescription request: Yes Caregiver confirmed with patient/requestor that no other refills are due, in the near future, with this provider at this time: Yes The last office visit in the department: n/a Does the patient have a future office visit with this provider/department: Yes Requested Prescriptions Pending Prescriptions Disp Refills oxyCODONE-acetaminophen (PERCOCET) 5-325 mg tablet 120 tablet 0 Sig: Take 1 tablet by mouth every 6 hours for 30 days. pregabalin (LYRICA) 150 mg capsule 60 capsule 0 Sig: Take 1 capsule by mouth two times a day for 30 days. Roderick Gaviria LPN January 27, 2024 3:29 PM documented in this encounter [facility] 01-27-2024 Telephone encounter Note Prescription Refill Information The patient has been identified by name and date of : Yes Caregiver verified no other encounters exist for this prescription request: Yes Caregiver confirmed with patient/requestor that no other refills are due, in the near future, with this provider at this time: Yes The last office visit in the department: n/a Does the patient have a future office visit with this provider/department: Yes Requested Prescriptions Pending Prescriptions Disp Refills oxyCODONE-acetaminophen (PERCOCET) 5-325 mg tablet 120 tablet 0 Sig: Take 1 tablet by mouth every 6 hours for 30 days. pregabalin (LYRICA) 150 mg capsule 60 capsule 0 Sig: Take 1 capsule by mouth two times a day for 30 days. Roderick Gaviria LPN January 27, 2024 3:[address] [facility] 12-30-2023 Telephone encounter Note The following approved medication requests have been transmitted electronically. Requested Prescriptions Signed Prescriptions Disp Refills diazePAM (VALIUM) 5 mg tablet 60 tablet 0 Sig: Take 1 tablet by mouth two times a day for 30 days. Authorizing Provider: MORENO OATES oxyCODONE-acetaminophen (PERCOCET) 5-325 mg tablet 120 tablet 0 Sig: Take 1 tablet by mouth every 6 hours for 30 days. Authorizing Provider: MORENO OATES pregabalin (LYRICA) 150 mg capsule 60 capsule 0 Sig: Take 1 capsule by mouth two times a day for 30 days. Authorizing Provider: MORENO OATES MD [facility] 12-30-2023 Miscellaneous Notes The following approved medication requests have been transmitted electronically. Requested Prescriptions Signed Prescriptions Disp Refills diazePAM (VALIUM) 5 mg tablet 60 tablet 0 Sig: Take 1 tablet by mouth two times a day for 30 days. Authorizing Provider: OMRENO OATES oxyCODONE-acetaminophen (PERCOCET) 5-325 mg tablet 120 tablet 0 Sig: Take 1 tablet by mouth every 6 hours for 30 days. Authorizing Provider: MORENO OATES pregabalin (LYRICA) 150 mg capsule 60 capsule 0 Sig: Take 1 capsule by mouth two times a day for 30 days. Authorizing Provider: MORENO OATES MD Prescription Refill Information The patient has been identified by name and date of : Yes Caregiver verified no other encounters exist for this prescription request: Yes Caregiver confirmed with patient/requestor that no other refills are due, in the near future, with this provider at this time: Yes The last office visit in the department: ? Does the patient have a future office visit with this provider/department: no Requested Prescriptions Pending Prescriptions Disp Refills pregabalin (LYRICA) 150 mg capsule 60 capsule 5 Sig: Take 1 capsule by mouth two times a day for 30 days. Nurse called from the custodial facility to request. Hoda Lewis December 29, 2023 4:56 PM documented in this encounter [facility] 12-30-2023 Telephone encounter Note Prescription Refill Information The patient has been identified by name and date of : Yes Caregiver verified no other encounters exist for this prescription request: Yes Caregiver confirmed with patient/requestor that no other refills are due, in the near future, with this provider at this time: Yes The last office visit in the department: 12/30/23 Does the patient have a future office visit with this provider/department: Yes Requested Prescriptions Pending Prescriptions Disp Refills diazePAM (VALIUM) 5 mg tablet 60 tablet 0 Sig: Take 1 tablet by mouth two times a day for 30 days. oxyCODONE-acetaminophen (PERCOCET) 5-325 mg tablet 120 tablet 0 Sig: Take 1 tablet by mouth every 6 hours for 30 days. pregabalin (LYRICA) 150 mg capsule 60 capsule 0 Sig: Take 1 capsule by mouth two times a day for 30 days. Roderick Gaviria LPN December 30, 2023 9:[address] [facility] 12-30-2023 Miscellaneous Notes Prescription Refill Information The patient has been identified by name and date of : Yes Caregiver verified no other encounters exist for this prescription request: Yes Caregiver confirmed with patient/requestor that no other refills are due, in the near future, with this provider at this time: Yes The last office visit in the department: 12/30/23 Does the patient have a future office visit with this provider/department: Yes Requested Prescriptions Pending Prescriptions Disp Refills diazePAM (VALIUM) 5 mg tablet 60 tablet 0 Sig: Take 1 tablet by mouth two times a day for 30 days. oxyCODONE-acetaminophen (PERCOCET) 5-325 mg tablet 120 tablet 0 Sig: Take 1 tablet by mouth every 6 hours for 30 days. pregabalin (LYRICA) 150 mg capsule 60 capsule 0 Sig: Take 1 capsule by mouth two times a day for 30 days. Roderick Gaviria LPN December 30, 2023 9:55 AM documented in this encounter [facility] 12-29-2023 Telephone encounter Note Charlie is calling Moreno Oates MD today [facility] Nurse from [facility] called to request this medication, not on current list: Disp Refills Start End diazePAM (VALIUM) 5 mg tablet 60 tablet 0 11/27/2023 12/27/2023 Sig: Take 1 tablet by mouth two times a day for 30 days. Sent to pharmacy as: diazePAM (VALIUM) 5 mg tablet Class: Normal Route: ORAL Order: [id number] E-Prescribing Status: Receipt confirmed by pharmacy (11/27/2023 2:31 PM EDT) Please send to [facility]. Patient has been identified by name and birthdate. Duration of symptoms: N/A Was an appointment scheduled: No Closing statement: Results or non-symptom based questions: Thank you for calling [facility], your call will be returned within the next business day. Hoda Lewis [facility] 12-29-2023 Miscellaneous Notes Charlie is calling Moreno Oates MD today [facility] Nurse from [facility] called to request this medication, not on current list: Disp Refills Start End diazePAM (VALIUM) 5 mg tablet 60 tablet 0 11/27/2023 12/27/2023 Sig: Take 1 tablet by mouth two times a day for 30 days. Sent to pharmacy as: diazePAM (VALIUM) 5 mg tablet Class: Normal Route: ORAL Order: [id number] E-Prescribing Status: Receipt confirmed by pharmacy (11/27/2023 2:31 PM EDT) Please send to [facility]. Patient has been identified by name and birthdate. Duration of symptoms: N/A Was an appointment scheduled: No Closing statement: Results or non-symptom based questions: Thank you for calling [facility], your call will be returned within the next business day. Hoda Fisher [facility] documented in this encounter [facility] 12-29-2023 Telephone encounter Note Prescription Refill Information The patient has been identified by name and date of : Yes Caregiver verified no other encounters exist for this prescription request: Yes Caregiver confirmed with patient/requestor that no other refills are due, in the near future, with this provider at this time: Yes The last office visit in the department: ? Does the patient have a future office visit with this provider/department: no Requested Prescriptions Pending Prescriptions Disp Refills pregabalin (LYRICA) 150 mg capsule 60 capsule 5 Sig: Take 1 capsule by mouth two times a day for 30 days. Nurse called from the custodial facility to request. Hoda Lewis December 29, 2023 4:[address] [facility] 11-27-2023 Telephone encounter Note Pt at [facility]. The following approved medication requests have been transmitted electronically. Requested Prescriptions Signed Prescriptions Disp Refills oxyCODONE-acetaminophen (PERCOCET) 5-325 mg tablet 120 tablet 0 Sig: Take 1 tablet by mouth every 6 hours for 30 days. Authorizing Provider: MORENO OATES diazePAM (VALIUM) 5 mg tablet 60 tablet 0 Sig: Take 1 tablet by mouth two times a day for 30 days. Authorizing Provider: MORENO OATES pregabalin (LYRICA) 150 mg capsule 60 capsule 0 Sig: Take 1 capsule by mouth two times a day for 30 days. Authorizing Provider: MORENO OATES MD [facility] 11-27-2023 Miscellaneous Notes Pt at [facility]. The following approved medication requests have been transmitted electronically. Requested Prescriptions Signed Prescriptions Disp Refills oxyCODONE-acetaminophen (PERCOCET) 5-325 mg tablet 120 tablet 0 Sig: Take 1 tablet by mouth every 6 hours for 30 days. Authorizing Provider: MORENO OATES diazePAM (VALIUM) 5 mg tablet 60 tablet 0 Sig: Take 1 tablet by mouth two times a day for 30 days. Authorizing Provider: MORENO OATES pregabalin (LYRICA) 150 mg capsule 60 capsule 0 Sig: Take 1 capsule by mouth two times a day for 30 days. Authorizing Provider: MORENO OATES MD documented in this encounter [facility] 10-28-2023 Telephone encounter Note senior living patient. The following approved medication requests have been transmitted electronically. Requested Prescriptions Signed Prescriptions Disp Refills pregabalin (LYRICA) 150 mg capsule 60 capsule 0 Sig: Take 1 capsule by mouth two times a day for 30 days. Authorizing Provider: MORENO OATES oxyCODONE-acetaminophen (PERCOCET) 5-325 mg tablet 120 tablet 0 Sig: Take 1 tablet by mouth every 6 hours for 30 days. Authorizing Provider: MORENO OATES diazePAM (VALIUM) 5 mg tablet 60 tablet 0 Sig: Take 1 tablet by mouth two times a day for 30 days. Authorizing Provider: MORENO OATES Refused Prescriptions Disp Refills pregabalin (LYRICA) 150 mg capsule 60 capsule 0 Sig: Take 1 capsule by mouth two times a day for 30 days. Refused By: CARLOS MEJIA Reason for Refusal: Request already responded to by other means (for example, phone, fax) diazePAM (VALIUM) 5 mg tablet 60 tablet 0 Sig: Take 1 tablet by mouth two times a day for 30 days. Refused By: CARLOS MEJIA Reason for Refusal: Request already responded to by other means (for example, phone, fax) oxyCODONE-acetaminophen (PERCOCET) 5-325 mg tablet 120 tablet 0 Sig: Take 1 tablet by mouth every 6 hours for 30 days. Refused By: CARLOS MEJIA Reason for Refusal: Request already responded to by other means (for example, phone, fax) Pharmacy Information Pharmacy Address Telephone [email or web address] [address] [id number] Moreno Oates MD [facility] 10-28-2023 Miscellaneous Notes senior living patient. The following approved medication requests have been transmitted electronically. Requested Prescriptions Signed Prescriptions Disp Refills pregabalin (LYRICA) 150 mg capsule 60 capsule 0 Sig: Take 1 capsule by mouth two times a day for 30 days. Authorizing Provider: MORENO OATES oxyCODONE-acetaminophen (PERCOCET) 5-325 mg tablet 120 tablet 0 Sig: Take 1 tablet by mouth every 6 hours for 30 days. Authorizing Provider: MORENO OATES diazePAM (VALIUM) 5 mg tablet 60 tablet 0 Sig: Take 1 tablet by mouth two times a day for 30 days. Authorizing Provider: MORENO OATES Refused Prescriptions Disp Refills pregabalin (LYRICA) 150 mg capsule 60 capsule 0 Sig: Take 1 capsule by mouth two times a day for 30 days. Refused By: CARLOS MEJIA Reason for Refusal: Request already responded to by other means (for example, phone, fax) diazePAM (VALIUM) 5 mg tablet 60 tablet 0 Sig: Take 1 tablet by mouth two times a day for 30 days. Refused By: CARLOS MEJIA Reason for Refusal: Request already responded to by other means (for example, phone, fax) oxyCODONE-acetaminophen (PERCOCET) 5-325 mg tablet 120 tablet 0 Sig: Take 1 tablet by mouth every 6 hours for 30 days. Refused By: CARLOS MEJIA Reason for Refusal: Request already responded to by other means (for example, phone, fax) Pharmacy Information Pharmacy Address Telephone [email or web address] [address] [place] [address] Moreno Oates MD Pharmacy verified in Epic Patient has been identified by name and date of : Yes Patient aware RX will be sent to pharmacy. No need to notify patient. Pharmacy phones for refill(s): Requested Prescriptions Pending Prescriptions Disp Refills pregabalin (LYRICA) 150 mg capsule 60 capsule 0 Sig: Take 1 capsule by mouth two times a day for 30 days. Date of last office visit : 12/30/2018 Date of next office visit : Visit date not found Last 2 Encounter Wt Readings: Date: Wt: 01/06/2021 111.7 kg (246 lb 4.1 oz) 12/19/2020 105.2 kg (232 lb) Not applicable Please advise. Fadumo Rahman LPN documented in this encounter [facility] 10-27-2023 Telephone encounter Note Pharmacy verified in Epic Patient has been identified by name and date of : Yes Patient aware RX will be sent to pharmacy. No need to notify patient. Pharmacy phones for refill(s): Requested Prescriptions Pending Prescriptions Disp Refills pregabalin (LYRICA) 150 mg capsule 60 capsule 0 Sig: Take 1 capsule by mouth two times a day for 30 days. Date of last office visit : 12/30/2018 Date of next office visit : Visit date not found Last 2 Encounter Wt Readings: Date: Wt: 01/06/2021 111.7 kg (246 lb 4.1 oz) 12/19/2020 105.2 kg (232 lb) Not applicable Please advise. Fadumo Rahman LPN [facility] 10-12-2023 Telephone encounter Note Received lab results from [facility]. Placed in provider's inbox for review. Route to [place] scanning [facility] 10-12-2023 Miscellaneous Notes Received lab results from [facility]. Placed in provider's inbox for review. Route to [place] scanning documented in this encounter [facility] 10-08-2023 Telephone encounter Note The following approved medication requests have been transmitted electronically. Requested Prescriptions Signed Prescriptions Disp Refills pantoprazole DR (PROTONIX) 40 mg tablet 30 tablet 11 Sig: Take 1 tablet by mouth once daily. Authorizing Provider: MORENO OATES diclofenac (VOLTAREN) 1 % topical gel 100 g 11 Sig: Apply 4 g to affected area four times daily. To back Authorizing Provider: MORENO OATES MD [facility] 10-08-2023 Miscellaneous Notes The following approved medication requests have been transmitted electronically. Requested Prescriptions Signed Prescriptions Disp Refills pantoprazole DR (PROTONIX) 40 mg tablet 30 tablet 11 Sig: Take 1 tablet by mouth once daily. Authorizing Provider: MORENO OATES diclofenac (VOLTAREN) 1 % topical gel 100 g 11 Sig: Apply 4 g to affected area four times daily. To back Authorizing Provider: MORENO OATES MD Rx request, pended documented in this encounter [facility] 10-07-2023 Telephone encounter Note Rx request, pended [facility] 09-25-2023 Telephone encounter Note [facility] patient. The following approved medication requests have been transmitted electronically. Requested Prescriptions Signed Prescriptions Disp Refills diazePAM (VALIUM) 5 mg tablet 60 tablet 0 Sig: Take 1 tablet by mouth two times a day for 30 days. Authorizing Provider: MORENO OATES oxyCODONE-acetaminophen (PERCOCET) 5-325 mg tablet 120 tablet 0 Sig: Take 1 tablet by mouth every 6 hours for 30 days. Authorizing Provider: MORENO OATES pregabalin (LYRICA) 150 mg capsule 60 capsule 0 Sig: Take 1 capsule by mouth two times a day for 30 days. Authorizing Provider: MORENO OATES Pharmacy Information Pharmacy Address [facility], [address] [address] [address] [facility] 09-25-2023 Miscellaneous Notes [facility] patient. The following approved medication requests have been transmitted electronically. Requested Prescriptions Signed Prescriptions Disp Refills diazePAM (VALIUM) 5 mg tablet 60 tablet 0 Sig: Take 1 tablet by mouth two times a day for 30 days. Authorizing Provider: MORENO OATES oxyCODONE-acetaminophen (PERCOCET) 5-325 mg tablet 120 tablet 0 Sig: Take 1 tablet by mouth every 6 hours for 30 days. Authorizing Provider: MORENO OATES pregabalin (LYRICA) 150 mg capsule 60 capsule 0 Sig: Take 1 capsule by mouth two times a day for 30 days. Authorizing Provider: MORENO OATES Pharmacy Information Pharmacy Address [facility], [place] [address] Moreno Oates MD documented in this encounter [facility] 09-11-2023 Telephone encounter Note The following approved medication requests have been transmitted electronically. Requested Prescriptions Signed Prescriptions Disp Refills ondansetron (ZOFRAN) 8 mg tablet 90 tablet 5 Sig: Take 1 tablet by mouth every 8 hours as needed for nausea/vomiting. Authorizing Provider: MORENO OATES Pharmacy Information Pharmacy Address [facility], [address] [address] [address] [facility] 09-11-2023 Miscellaneous Notes The following approved medication requests have been transmitted electronically. Requested Prescriptions Signed Prescriptions Disp Refills ondansetron (ZOFRAN) 8 mg tablet 90 tablet 5 Sig: Take 1 tablet by mouth every 8 hours as needed for nausea/vomiting. Authorizing Provider: MORENO OATES Pharmacy Information Pharmacy Address Telephone [facility] [address] [phone] Moreno Oates MD documented in this encounter [facility] 08-11-2023 Miscellaneous Notes Received lab results from [facility]/ [facility]. Placed in provider's inbox for review. Route to [place] scanning documented in this encounter [facility] 07-31-[address] [facility] The following approved medication requests have been transmitted electronically. Requested Prescriptions Signed Prescriptions Disp Refills oxyCODONE-acetaminophen (PERCOCET) 5-325 mg tablet 120 tablet 0 Sig: Take 1 tablet by mouth every 6 hours for 30 days. Authorizing Provider: MORENO OATES MD documented in this encounter [facility] 07-30-2023 Miscellaneous Notes Pt at [facility]. Seen by Dr Oates in facility monthly The following approved medication requests have been transmitted electronically. Requested Prescriptions Signed Prescriptions Disp Refills diazePAM (VALIUM) 5 mg tablet 60 tablet 0 Sig: Take 1 tablet by mouth two times a day for 30 days. Authorizing Provider: MORENO OATES pregabalin (LYRICA) 150 mg capsule 60 capsule 0 Sig: Take 1 capsule by mouth two times a day for 30 days. Authorizing Provider: MORENO OATES MD documented in this encounter [facility] 05-11-2023 Miscellaneous Notes Received 05/11/2023 from [facility]. Placed in provider's inbox for review. Route to [place] for scanning. documented in this encounter [facility] 04-29-2023 Miscellaneous Notes Pt at [facility], due for refills. The following approved medication requests have been transmitted electronically. Requested Prescriptions Signed Prescriptions Disp Refills pregabalin (LYRICA) 150 mg capsule 60 capsule 0 Sig: Take 1 capsule by mouth two times a day for 30 days. Authorizing Provider: MORENO OATES oxyCODONE-acetaminophen (PERCOCET) 5-325 mg tablet 120 tablet 0 Sig: Take 1 tablet by mouth every 6 hours for 30 days. Authorizing Provider: MORENO OATES diazePAM (VALIUM) 5 mg tablet 60 tablet 0 Sig: Take 1 tablet by mouth two times a day for 30 days. Authorizing Provider: MORENO OATES MD documented in this encounter [facility] 04-13-2023 Miscellaneous Notes Received 04/13/2023 from [facility]. Placed in provider's inbox for review. Route to [place] for scanning. documented in this encounter [facility] 04-07-2023 Miscellaneous Notes Relayed message to Tamar. She said she would check and patients supply. Tamar, nurse for this patient, returned call. Please call her back at [phone]. LM for nurse at [facility]. Let pharmacy know these Rx's were sent last week Moreno Oates MD Received order requests from [facility] for diazepam and oxycodone APAP. Placed in provider's inbox to review. documented in this encounter [facility] 03-30-2023 Miscellaneous Notes The following approved medication requests have been transmitted electronically. Requested Prescriptions Signed Prescriptions Disp Refills pregabalin (LYRICA) 150 mg capsule 60 capsule 0 Sig: Take 1 capsule by mouth two times a day for 30 days. Authorizing Provider: MORENO OATES oxyCODONE-acetaminophen (PERCOCET) 5-325 mg tablet 120 tablet 0 Sig: Take 1 tablet by mouth every 6 hours for 30 days. Authorizing Provider: MORENO OATES diazePAM (VALIUM) 5 mg tablet 60 tablet 0 Sig: Take 1 tablet by mouth two times a day for 30 days. Authorizing Provider: MORENO OATES MD documented in this encounter [facility] 02-13-2023 Miscellaneous Notes Spoke to Ginny at the facility, she will relay the information to her about the rxs that were prescribed. Patient's request for medication is as follows: Requested Prescriptions Signed Prescriptions Disp Refills doxycycline hyclate (VIBRAMYCIN) 100 mg capsule 14 capsule 0 Sig: Take 1 capsule by mouth twice daily for 7 days. guaiFENesin (MUCINEX) 600 mg 12 hr tablet 40 tablet 0 Sig: Take 1 tablet by mouth twice daily. Prescription(s) as above. Please process accordingly. Lou Davis APRN.SENIOR [employer]SUMER INSIGHTS CONSULTANT See below, per Yoly, nurse at the facility the patient resides at, patient has nasal congestion, maryjo wheezing, coughing but not expectorating any material. Xray was negative for pneumonia. Afebrile, drinking fluids, poor appetite. Patient will not allow then to check her pulse ox. Patient is up in the w/c, can transfer but is unable to walk. Patient is a smoker. Patient asking for an antibiotic and an order for Mucinex. Please advise. Call Yoly at number below until 6:30. Yes my name is Yoly I'm calling from [facility] facility. Phone number is [phone]. Calling in regards to a Charlie Nguyen date of 1955. She is having some cold and congestion loose moist cough not expectorating anything. She is bilateral wheezing. She did get a chest x-ray earlier in the week which was negative for anything. She was started on prednisone for five days on 02/10. She did get it this morning. She has albuterol PRN she's had two of those today and she is requesting an antibiotic. Please review her allergies. If there's any new orders from Dr. Oates please give me a call thank you. Bye. Reason for Disposition [1] Caller is not with the adult (patient) AND [2] probable NON-URGENT symptoms Answer Assessment - Initial Assessment Questions 1. REASON FOR CALL or QUESTION:Calling with some issues the patient is dealing with. Protocols used: Information Only Call - No [id number] documented in this encounter [facility] 02-12-2023 Miscellaneous Notes Received lab results from [facility]. Placed in provider's inbox for review. Route to [place] scanning. documented in this encounter [facility] 02-12-2023 Miscellaneous Notes Spoke with Lovely at [facility]. Relayed message below. Verbalized understanding with no further questions or concerns. Yudi Pak Lovely, Nurse from the [facility] where the patient lives is calling back. Please call her again [phone]. Please call more than one time, she has been transferred all over and then put on hold. LM for nurse to call office. Not increasing Percocet. She can have the tyleonol scheduled between the Percocet doses. She can see pain mgt if she likes Moreno Oates MD Nurse stating patient said she is always in pain. Can percocet be increased? Not able to give more Tylenol with being on regular Percocet. Moreno Oates MD [place] with [facility] calling today asking for stronger tylenol. Patient is requesting 1000 mg. Cheyenne is also updating that the patient is on percocet as well. Please return call if appropriate [phone] documented in this encounter [facility] 01-31-2023 Miscellaneous Notes The following approved medication requests have been transmitted electronically. Requested Prescriptions Signed Prescriptions Disp Refills pregabalin (LYRICA) 150 mg capsule 56 capsule 0 Sig: Take 1 capsule by mouth twice daily for 28 days. Authorizing Provider: MORENO OATES diazePAM (VALIUM) 5 mg tablet 56 tablet 0 Sig: Take 1 tablet by mouth twice daily for 28 days. Authorizing Provider: MORENO OATES MD documented in this encounter [facility] 01-31-2023 Miscellaneous Notes The following approved medication requests have been transmitted electronically. Requested Prescriptions Signed Prescriptions Disp Refills oxyCODONE-acetaminophen (PERCOCET) 5-325 mg tablet 112 tablet 0 Sig: Take 1 tablet by mouth every 6 hours for 28 days. Authorizing Provider: MORENO OATES MD Yoly from nursing facility called regarding oxycodone rx. She states she faxed over a paper regarding this and needs Dr Oates's signature and faxed to [facility] pharmacy. documented in this encounter [facility] 01-26-2023 Miscellaneous Notes Received 01/26/[address] [facility]. Placed in provider's inbox for review. Route to [place] for scanning. documented in this encounter [facility] 01-13-2023 Miscellaneous Notes Received clarification request from [facility] pharmacy. Placed in provider's inbox for review. Route to [place] fax documented in this encounter [facility] 01-12-2023 Miscellaneous Notes Received lab results from [facility]/ [facility]. Placed in provider's inbox for review. Route to [place] scanning. documented in this encounter [facility] 01-01-2023 Miscellaneous Notes The following approved medication requests have been transmitted electronically. Requested Prescriptions Signed Prescriptions Disp Refills pregabalin (LYRICA) 150 mg capsule 60 capsule 0 Sig: Take 1 capsule by mouth twice daily for 30 days. Authorizing Provider: MORENO OATES oxyCODONE-acetaminophen (PERCOCET) 5-325 mg tablet 80 tablet 0 Sig: Take 1 tablet by mouth every 6 hours for 20 days. Authorizing Provider: MORENO OATES diazePAM (VALIUM) 5 mg tablet 60 tablet 0 Sig: Take 1 tablet by mouth twice daily for 30 days. Authorizing Provider: MORENO OATES MD Received urgent request for refills via fax from [facility]. Placed in provider's inbox for review. Route to [place] e scribe [facility] P[facility]. documented in this encounter [facility] 12-31-2022 Miscellaneous Notes Received 12/31/2022 from [facility]. Placed in provider's inbox for review. Route to [place] for scanning documented in this encounter [facility] 12-29-[address] Oates placed call to the [place] approving the orders recommended. Moreno Oates MD Please review and advise. Hey good afternoon my name is Zari Segovia nurse practitioner with [facility]. Phone number [phone]. I'm calling in regards to patient Charlie Reyes. Her date of is 1955. She is a resident at [facility]. Calling Charlie has a mildly low pulse ox of 89 and fatigue--malaise borderline low BP we're doing a routine visit on her today. I am putting in an order for CBC CMP chest x-ray and she does have some wheezing like little worse the base but I think it will be prudent to do a course of Augmentin as well so put in an order for a seven day course of Augmentin. I wanted to let Dr. Webb know that and you know get his thoughts on any other testing or treatment he would like you can return my call at [phone]. Thank you so much. Galindo madrid. Reason for Disposition [1] Follow-up call to recent contact AND [2] information only call, no triage required Protocols used: Information Only Call - No [id number] documented in this encounter [facility] 12-16-2022 Miscellaneous Notes Received consultation visit summary from [facility]. Placed in provider's inbox for review. Route to [place] scanning. documented in this encounter [facility] 12-01-2022 Miscellaneous Notes Refills sent on 11/26. Vaughn Montes De Oca MD [facility] faxed PCP office in [place] requesting orders for patient's oxycodone/APAP and diazepam. PCP out of office - I faxed the orders over to covering providers in [place]. Can anyone sign the orders for patient's refills? documented in this encounter [facility] 11-21-2022 Miscellaneous Notes No change faxed to [facility]. documented in this encounter [facility] 11-17-2022 Emergency department Note Report called to SNF. Kelvin Grajeda RN 11/17/22 1400 [facility] 11-17-2022 Emergency department Note Report called to SNF. Kelvin Grajeda RN 11/17/22 [facility] ETA 15 min Carlos Castano RN 11/17/22 1359 Oxygen via [place] off since 1250 to see if able to tolerate RA. Kelvin Grajeda RN 11/17/22 1308 EMERGENCY DEPARTMENT ENCOUNTER Pt Name: Charlie Nguyen Birthdate 1955 Date of evaluation: 11/17/2022 ED Provider: Marc Goodman DO CHIEF COMPLAINT Chief Complaint Patient presents with Leg Swelling Pt brought in by [facility] for swelling in her L ankle and discoloration in her foot. Pt denies trauma to affected extremity. Pt reports Hx blood clots in her R leg. HISTORY OF PRESENT ILLNESS (Location/Symptom, Timing/Onset, Context/Setting, Quality, Duration, Modifying Factors, Severity) Note limiting factors. I wore appropriate PPE for the entirety of this encounter. HPI Charlie Nguyen is a 67 y.o. adult who presents to the emergency department with chief complaint of left leg swelling. Patient notes swelling and discoloration to left ankle and foot. She denies any recent injury or trauma to the area. Able to ambulate with some assistance. She is currently on Eliquis. Sent by [facility] via EMS to rule out DVT. She currently denies any shortness of breath and was not previously on supplemental oxygen. Nursing Notes were reviewed. Limitations to history: None Outside historians: None REVIEW OF SYSTEMS Review of Systems Pertinent positives and negatives as per HPI PAST MEDICAL HISTORY Past Medical History: Diagnosis Date Anxiety Benign neoplasm of brain (HCC) Brain tumor (HCC) 02/01/2015 Found small tumor, has appt with neurologist in May Chronic back pain Chronic pain syndrome Cognitive communication deficit COVID-19 Depression GERD (gastroesophageal reflux disease) Headache Hypertension Ischemic colitis ([facility]) MRSA (methicillin resistant Staphylococcus aureus) MS (multiple sclerosis) ([facility]) ([facility]) Schizoaffective disorder ([facility]) ([facility]) Tobacco use SURGICAL HISTORY Past Surgical History: Procedure Laterality Date BRONCHOSCOPY (HISTORICAL) 10/06/2019 HYSTERECTOMY KNEE SURGERY Right 06/2016 TUBAL LIGATION CURRENT MEDICATIONS There are no discharge medications for this patient. ALLERGIES Nsaids, Gabapentin, Nitrofurantoin, Nitrofurantoin monohyd macro, Tramadol, Cephalexin, and Hydrocodone-acetaminophen FAMILY HISTORY Family History Problem Relation Name Age of Onset Cancer Father kidney Cancer Mother breast SOCIAL HISTORY Social History Socioeconomic History Marital status: Tobacco Use Smoking status: Every Day Packs/day: 1.00 Types: Cigarettes Smokeless tobacco: Never Substance and Sexual Activity Alcohol use: No Alcohol/week: 0.0 standard drinks of alcohol Drug use: No SCREENINGS PHYSICAL EXAM ED Triage Vitals [11/17/22 0835] Temp Heart Rate Resp BP (!) 35.7 C (96.3 F) 67 18 108/70 SpO2 Temp Source Heart Rate Source Patient Position (!) 88 % Temporal Monitor -- BP Location FiO2 (%) -- -- Physical Exam Vitals and nursing note reviewed. Constitutional: General: She is not in acute distress. Appearance: She is well-developed. HENT: Head: Normocephalic and atraumatic. Eyes: Conjunctiva/sclera: Conjunctivae normal. Cardiovascular: Rate and Rhythm: Normal rate and regular rhythm. Heart sounds: No murmur heard. Pulmonary: Effort: Pulmonary effort is normal. No respiratory distress. Breath sounds: Normal breath sounds. Abdominal: Palpations: Abdomen is soft. Tenderness: There is no abdominal tenderness. Musculoskeletal: General: No swelling. Cervical back: Neck supple. Left lower leg: Edema present. Comments: DP and PT pulses are 2+. No significant bony tenderness to the malleoli. No significant ankle effusion. Skin: General: Skin is warm and dry. Capillary Refill: Capillary refill takes less than 2 seconds. Neurological: Mental Status: She is alert. Psychiatric: Mood and Affect: Mood normal. DIAGNOSTIC RESULTS RADIOLOGY (Per Emergency Physician): Interpretation per the Radiologist below, if available at the time of this note: CT chest angiogram w and/or wo IV contrast Final Result Impression:The etiology of the symptoms is not certain. No large central embolism seen.. Report Dictated on Electronically Signed By: John Paul Boone Electronically Signed Date/Time: 11/17/2022 11:24 AM EDT Vascular US lower extremity venous duplex left Final Result LABS: Labs Reviewed CBC WITH AUTO DIFFERENTIAL - Abnormal Result Value Auto WBC 7.1 RBC 4.58 Hemoglobin 15.3 Hematocrit 45.0 MCV 98.3 (*) MCH 33.5 MCHC 34.1 RDW 15.2 (*) Platelets 200 MPV 9.5 nRBC 0.0 Neutrophils Relative 61.7 Lymphocytes Relative 27.2 Monocytes Relative 8.6 Eosinophils Relative 0.9 (*) Basophils Relative 1.6 Neutrophils Absolute 4.4 Lymphocytes Absolute 1.9 Monocytes Absolute 0.6 Eosinophils Absolute 0.1 Basophils Absolute 0.1 BASIC METABOLIC PANEL - Abnormal SODIUM 137 POTASSIUM 4.5 CHLORIDE 105 CARBON DIOXIDE 27 UREA NITROGEN 32 (*) CREATININE 0.79 GLUCOSE 93 CALCIUM 8.5 ANION GAP 5 eGFR 82.6 TROPONIN I - Normal TROPONIN I <0.012 Narrative: Patients with high levels of Biotin oral intake (ie >5 mg/day) may have falsely decreased Troponin levels. NT PRO BNP - Normal NT PRO BNP 85 COMPLETE URINALYSIS WITH REFLEX TO CULTURE Narrative: The following orders were created for panel order Urinalysis complete with reflex to Culture. Procedure Abnormality Status --------- ------ Complete Urinalysis[[id number]] Please view results for these tests on the individual orders. COMPLETE URINALYSIS All other labs were within normal range or not returned as of this dictation. EMERGENCY DEPARTMENT COURSE and DIFFERENTIAL DIAGNOSIS/MDM: Vitals: Vitals: 11/17/22 1318 11/17/22 1413 11/17/22 1416 11/17/22 1549 BP: 110/75 114/80 Pulse: (!) 49 56 77 Resp: 20 Temp: TempSrc: SpO2: 90% 94% 91% Weight: Medications metoclopramide (Reglan) injection 10 mg (has no administration in time range) acetaminophen (Tylenol) tablet 650 mg (650 mg Oral Given 11/17/22 0924) iopamidol (Isovue-370) 76 % injection 75 mL (75 mL IntraVENous Given 11/17/22 1050) The patient presented with chief complaint of leg swelling. Was sent to ED to rule out DVT. She is fully anticoagulated so the pretest probability was low. However, due to the swelling that is asymmetric, we did proceed with DVT studies of the left leg. Negative for acute DVT. She did have intermittent hypoxia and was hypoxic on arrival. However, no signs of any significant respiratory distress or tachycardia or hypotension. No signs of any pneumonia or any other acute infectious etiology. No signs of PE as well. Given that the hypoxia seems to wax and wane and associated with sleep, I suspect could be due to sleep apnea. There is no evidence of any other acute cardiopulmonary emergency at this time. Suitable for discharge back to nursing facility. FINAL IMPRESSION 1. Left leg swelling DISPOSITION Discharge 11/17/2022 12:20:12 PM PATIENT REFERRED TO: Moreno Oates [address] [place] [id number] Schedule an appointment as soon as possible for a visit DISCHARGE MEDICATIONS: There are no discharge medications for this patient. (Comment: Please note this report has been produced using speech recognition software and may contain errors related to that system including errors in grammar, punctuation, and spelling, as well as words and phrases that may be inappropriate. If there are any questions or concerns please feel free to contact the dictating provider for clarification.) Marc Goodman DO (electronically signed) Emergency Medicine Provider Marc Goodman DO 11/17/22 1648 documented in this encounter [facility] 11-17-2022 Emergency department Note Physicians ETA 15 min Carlos Castano RN 11/17/22 1359 [facility] 11-17-2022 Emergency department Note Oxygen via [place] off since 1250 to see if able to tolerate RA. Kelvin Grajeda RN 11/17/22 1308 [facility] 11-17-2022 Physician Emergency department Note EMERGENCY DEPARTMENT ENCOUNTER Pt Name: Charlie Nguyen Birthdate 1955 Date of evaluation: 11/17/2022 ED Provider: Marc Goodman DO CHIEF COMPLAINT Chief Complaint Patient presents with Leg Swelling Pt brought in by [facility] for swelling in her L ankle and discoloration in her foot. Pt denies trauma to affected extremity. Pt reports Hx blood clots in her R leg. HISTORY OF PRESENT ILLNESS (Location/Symptom, Timing/Onset, Context/Setting, Quality, Duration, Modifying Factors, Severity) Note limiting factors. I wore appropriate PPE for the entirety of this encounter. HPI Charlie Nguyen is a 67 y.o. adult who presents to the emergency department with chief complaint of left leg swelling. Patient notes swelling and discoloration to left ankle and foot. She denies any recent injury or trauma to the area. Able to ambulate with some assistance. She is currently on Eliquis. Sent by [facility] via EMS to rule out DVT. She currently denies any shortness of breath and was not previously on supplemental oxygen. Nursing Notes were reviewed. Limitations to history: None Outside historians: None REVIEW OF SYSTEMS Review of Systems Pertinent positives and negatives as per HPI PAST MEDICAL HISTORY Past Medical History: Diagnosis Date Anxiety Benign neoplasm of brain (HCC) Brain tumor (HCC) 02/01/2015 Found small tumor, has appt with neurologist in May Chronic back pain Chronic pain syndrome Cognitive communication deficit COVID-19 Depression GERD (gastroesophageal reflux disease) Headache Hypertension Ischemic colitis (HCC) MRSA (methicillin resistant Staphylococcus aureus) MS (multiple sclerosis) (CMS/HCC) (HCC) Schizoaffective disorder (CMS/HCC) (HCC) Tobacco use SURGICAL HISTORY Past Surgical History: Procedure Laterality Date BRONCHOSCOPY (HISTORICAL) 10/06/2019 HYSTERECTOMY KNEE SURGERY Right 06/2016 TUBAL LIGATION CURRENT MEDICATIONS There are no discharge medications for this patient. ALLERGIES Nsaids, Gabapentin, Nitrofurantoin, Nitrofurantoin monohyd macro, Tramadol, Cephalexin, and Hydrocodone-acetaminophen FAMILY HISTORY Family History Problem Relation Name Age of Onset Cancer Father kidney Cancer Mother breast SOCIAL HISTORY Social History Socioeconomic History Marital status: Tobacco Use Smoking status: Every Day Packs/day: 1.00 Types: Cigarettes Smokeless tobacco: Never Substance and Sexual Activity Alcohol use: No Alcohol/week: 0.0 standard drinks of alcohol Drug use: No SCREENINGS PHYSICAL EXAM ED Triage Vitals [11/17/22 0835] Temp Heart Rate Resp BP (!) 35.7 C (96.3 F) 67 18 108/70 SpO2 Temp Source Heart Rate Source Patient Position (!) 88 % Temporal Monitor -- BP Location FiO2 (%) -- -- Physical Exam Vitals and nursing note reviewed. Constitutional: General: She is not in acute distress. Appearance: She is well-developed. HENT: Head: Normocephalic and atraumatic. Eyes: Conjunctiva/sclera: Conjunctivae normal. Cardiovascular: Rate and Rhythm: Normal rate and regular rhythm. Heart sounds: No murmur heard. Pulmonary: Effort: Pulmonary effort is normal. No respiratory distress. Breath sounds: Normal breath sounds. Abdominal: Palpations: Abdomen is soft. Tenderness: There is no abdominal tenderness. Musculoskeletal: General: No swelling. Cervical back: Neck supple. Left lower leg: Edema present. Comments: DP and PT pulses are 2+. No significant bony tenderness to the malleoli. No significant ankle effusion. Skin: General: Skin is warm and dry. Capillary Refill: Capillary refill takes less than 2 seconds. Neurological: Mental Status: She is alert. Psychiatric: Mood and Affect: Mood normal. DIAGNOSTIC RESULTS RADIOLOGY (Per Emergency Physician): Interpretation per the Radiologist below, if available at the time of this note: CT chest angiogram w and/or wo IV contrast Final Result Impression:The etiology of the symptoms is not certain. No large central embolism seen.. Report Dictated on Electronically Signed By: John Paul Boone Electronically Signed Date/Time: 11/17/2022 11:24 AM EDT Vascular US lower extremity venous duplex left Final Result LABS: Labs Reviewed CBC WITH AUTO DIFFERENTIAL - Abnormal Result Value Auto WBC 7.1 RBC 4.58 Hemoglobin 15.3 Hematocrit 45.0 MCV 98.3 (*) MCH 33.5 MCHC 34.1 RDW 15.2 (*) Platelets 200 MPV 9.5 nRBC 0.0 Neutrophils Relative 61.7 Lymphocytes Relative 27.2 Monocytes Relative 8.6 Eosinophils Relative 0.9 (*) Basophils Relative 1.6 Neutrophils Absolute 4.4 Lymphocytes Absolute 1.9 Monocytes Absolute 0.6 Eosinophils Absolute 0.1 Basophils Absolute 0.1 BASIC METABOLIC PANEL - Abnormal SODIUM 137 POTASSIUM 4.5 CHLORIDE 105 CARBON DIOXIDE 27 UREA NITROGEN 32 (*) CREATININE 0.79 GLUCOSE 93 CALCIUM 8.5 ANION GAP 5 eGFR 82.6 TROPONIN I - Normal TROPONIN I <0.012 Narrative: Patients with high levels of Biotin oral intake (ie >5 mg/day) may have falsely decreased Troponin levels. NT PRO BNP - Normal NT PRO BNP 85 COMPLETE URINALYSIS WITH REFLEX TO CULTURE Narrative: The following orders were created for panel order Urinalysis complete with reflex to Culture. Procedure Abnormality Status --------- ------ Complete Urinalysis[[id number]] Please view results for these tests on the individual orders. COMPLETE URINALYSIS All other labs were within normal range or not returned as of this dictation. EMERGENCY DEPARTMENT COURSE and DIFFERENTIAL DIAGNOSIS/MDM: Vitals: Vitals: 11/17/22 1318 11/17/22 1413 11/17/22 1416 11/17/22 1549 BP: 110/75 114/80 Pulse: (!) 49 56 77 Resp: 20 Temp: TempSrc: SpO2: 90% 94% 91% Weight: Medications metoclopramide (Reglan) injection 10 mg (has no administration in time range) acetaminophen (Tylenol) tablet 650 mg (650 mg Oral Given 11/17/22 0924) iopamidol (Isovue-370) 76 % injection 75 mL (75 mL IntraVENous Given 11/17/22 1050) The patient presented with chief complaint of leg swelling. Was sent to ED to rule out DVT. She is fully anticoagulated so the pretest probability was low. However, due to the swelling that is asymmetric, we did proceed with DVT studies of the left leg. Negative for acute DVT. She did have intermittent hypoxia and was hypoxic on arrival. However, no signs of any significant respiratory distress or tachycardia or hypotension. No signs of any pneumonia or any other acute infectious etiology. No signs of PE as well. Given that the hypoxia seems to wax and wane and associated with sleep, I suspect could be due to sleep apnea. There is no evidence of any other acute cardiopulmonary emergency at this time. Suitable for discharge back to nursing facility. FINAL IMPRESSION 1. Left leg swelling DISPOSITION Discharge 11/17/2022 12:20:12 PM PATIENT REFERRED TO: Moreno Oates [address] [place] [address] Schedule an appointment as soon as possible for a visit DISCHARGE MEDICATIONS: There are no discharge medications for this patient. (Comment: Please note this report has been produced using speech recognition software and may contain errors related to that system including errors in grammar, punctuation, and spelling, as well as words and phrases that may be inappropriate. If there are any questions or concerns please feel free to contact the dictating provider for clarification.) Marc Goodman DO (electronically signed) Emergency Medicine Provider Marc Goodman DO 11/17/22 1648 [facility] 11-06-2022 Miscellaneous Notes Received 11/06/2022 from [facility] Placed in provider's inbox for review. Route to [place] for faxing documented in this encounter [facility] 10-10-2022 Miscellaneous Notes Received Rx request from [facility] pharmacy for meds she has had filled <2 weeks ago. Looking at the PDMP report, she only had a 10 day supply of Percocet issued. The following approved medication requests have been transmitted electronically. Requested Prescriptions Signed Prescriptions Disp Refills oxyCODONE-acetaminophen (PERCOCET) 5-325 mg tablet 80 tablet 0 Sig: Take 1 tablet by mouth every 6 hours for 20 days. Authorizing Provider: MORENO OATES Will fill other Rx's first of the month. Moreno Oates MD documented in this encounter [facility] 10-01-2022 Miscellaneous Notes Pt in [employer] The following approved medication requests have been transmitted electronically. Requested Prescriptions Signed Prescriptions Disp Refills diazePAM (VALIUM) 5 mg tablet 60 tablet 0 Sig: Take 1 tablet by mouth twice daily for 30 days. Authorizing Provider: MORENO OATES MD documented in this encounter [facility] 09-24-2022 Miscellaneous Notes Seen in [place] today. Having worse headaches. Will try increased dose of Lyrica The following approved medication requests have been transmitted electronically. Requested Prescriptions Signed Prescriptions Disp Refills pregabalin (LYRICA) 150 mg capsule 60 capsule 0 Sig: Take 1 capsule by mouth twice daily for 30 days. Authorizing Provider: MORENO OATES MD documented in this encounter [facility] 09-19-2022 Miscellaneous Notes Fax sent to inform. Request for refill too early. [facility] on 08/27 and 08/29. Patient's request for medication has been refused. See reason and notify patient. Requested Prescriptions Refused Prescriptions Disp Refills pregabalin (LYRICA) 100 mg capsule 60 capsule 0 Sig: Take 1 capsule by mouth twice daily for 30 days. Refused By: ENDER OATES Reason for Refusal: Patient has requested refill too soon diazePAM (VALIUM) 5 mg tablet 60 tablet 0 Sig: Take 1 tablet by mouth twice daily for 30 days. Refused By: ENDER OATES Reason for Refusal: Patient has requested refill too soon oxyCODONE-acetaminophen (PERCOCET) 5-325 mg tablet 120 tablet 0 Sig: Take 1 tablet by mouth every 6 hours for 30 days. Refused By: ENDER OATES Reason for Refusal: Patient has requested refill too soon Moreno Oates MD documented in this encounter [facility] 09-05-2022 Miscellaneous Notes Patient's request for medication has been refused. See reason and notify patient. Requested Prescriptions Refused Prescriptions Disp Refills oxyCODONE-acetaminophen (PERCOCET) 5-325 mg tablet 120 tablet 0 Sig: Take 1 tablet by mouth every 6 hours for 30 days. Refused By: ENDER OATES Reason for Refusal: Request already responded to by other means (for example, phone, fax) pregabalin (LYRICA) 100 mg capsule 60 capsule 0 Sig: Take 1 capsule by mouth twice daily for 30 days. Refused By: ENDER OATES Reason for Refusal: Request already responded to by other means (for example, phone, fax) diazePAM (VALIUM) 5 mg tablet 60 tablet 0 Sig: Take 1 tablet by mouth twice daily for 30 days. Refused By: ENDER OATES Reason for Refusal: Request already responded to by other means (for example, phone, fax) These were filled by [facility] On 08/27 and 08/29 respectively Moreno Oates MD documented in this encounter [facility] 03-31-2023 Miscellaneous Notes The following approved medication requests have been transmitted electronically. Requested Prescriptions Signed Prescriptions Disp Refills oxyCODONE-acetaminophen (PERCOCET) 5-325 mg tablet 120 tablet 0 Sig: Take 1 tablet by mouth every 6 hours for 30 days. Authorizing Provider: MORENO OATSE Pharmacy Information Pharmacy Address [facility]phone [facility]. [address] [place], [place] [id number] Escrptied to [place] pharmacy Moreno Oates MD documented in this encounter [facility] 08-28-2022 Miscellaneous Notes Received lab results 08/28/22 from [facility]. Placed in provider's inbox for review. Route to [place] scanning. documented in this encounter [facility] 08-11-2022 History of Present illness Narrative Images from the original note were not included. Ortho Knee Follow Up Note Narrative Referring Provider: Debbie Batista [id number] [facility] [address] PCP: Moreno Oates MD IMPRESSION/PLAN: 67 year old s/p Left Total Knee Replacement completed on 01/28/2017 Dr. 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 Parrish @ORTHSURGERIES@ PAIN EVALUATION 08/11/2022 1130 Pain Level: 8 Pain Location: Knee-Left Description: Throbbing;Sharp Duration Units: Months Frequency: Intermittent Intervention/Comfort measure: Relaxation IMPRESSION: chronic left knee pain chronic right knee pain PLAN: Continue withy current pain management per facility Patient Reassurance: Patient reassured and supported. All questions answered. Follow up as needed Charlie Nguyen presents today with concerns of left knee pain. She reports her right knee, bilateral shoulders, elbows and feet are also painful. She feels this is related to her MS. Her last office visit was 05/21/2022. when she presented with left knee pain. She underwent LTKA with Dr. Tavares in 2016 who is now retired. She underwent revision right total knee with Dr. Parrish in November of 2020. At her last visit blood work was obtained to r/o any possibility of PJI. Results were all withing normal range. She has elevated Sed rate at baseline and the most recent labs were not substantially higher. We also discussed the results of the left knee CT scan which shows all components are well aligned without concern for complication. She is wheelchair bound and does not ambulate. She is a resident in a [facility]. She reports most of the day she is sitting. She also continues to smoke, but states she cut back. She does not have PT any longer. She takes Percocet and Lyrica for pain symptoms. No new treatment needed. Contact the office with any new or concerning problems ACTIVE PROBLEM LIST Osteoarthritis of Right Knee Ms (Multiple Sclerosis) ([facility]) Essential Hypertension Lumbar Disc Herniation Current Smoker Knee Pain Primary Osteoarthritis of Left Knee Gastroesophageal Reflux Disease Without Esophagitis Headache S/P Total Knee Arthroplasty Extensor Tendon Disruption Knee Pain, Right S/P Revision of Total Knee, Right Rupture of Quadriceps Muscle Acute Deep Vein Thrombosis (Dvt) of Right Lower Extremity ([facility]) Acute Respiratory Failure With Hypoxia ([facility]) Chronic Pain Syndrome Chronic Prescription Benzodiazepine Use Chronic Prescription Opiate Use Repeat Prescription Issue Mechanical Complication of Internal Orthopedic Device, Implant Or Graft ([facility]) Failed Total Knee Arthroplasty ([facility]) Delirium Chronic Pain of Right Knee Hypotension History of Pulmonary Embolism Septic Arthritis ([facility]) Urinary Tract Infection Hypoxia Seizure ([facility]) Obesity, Class I, Bmi 30-34.9 Infection of Prosthetic Right Knee Joint ([facility]) Joint Infection ([facility]) Dysuria Septic Arthritis of Knee, Right ([facility]) Status post op: BMI: There is no height or weight on file to calculate BMI. Post-operative recovery was complicated by uneventful/none. Readmission(s) since surgery (90 days post)? No ED Visits & Hospitalizations - Last 180 days None Patient rates their condition as unchanged. Current Opioids Analgesic Opioid Oxycodone Combinations Start End oxyCODONE-acetaminophen (PERCOCET) 5-325 mg tablet 07/29/2022 Sig - Route: Take 1 tablet by mouth four times daily as needed for pain. - ORAL Earliest Fill Date: 07/29/2022 Analgesic Opioid Oxycodone and Non-Salicylate Combinations Start End oxyCODONE-acetaminophen (PERCOCET) 5-325 mg tablet 07/29/2022 Sig - Route: Take 1 tablet by mouth four times daily as needed for pain. - ORAL Earliest Fill Date: 07/29/2022 Currently Ambulating with: a wheelchair EXAM: POST OP KNEE Bilateral Post-Operative Knee Ambulates with a: wheelchair. SKIN: Appropriate postop appearance, No evidence of erythema, warmth, discharge or drainage bilateral knee's Left: Alignment: Neutral Range of motion is 5 degrees in extension and 120 degrees of flexion. Extension La degrees Pain with ROM: Yes Effusion: None Tender to the palpation of hamstring and patellar tendon Pain with patellar compression: No Stability: Anterior/Posterior stable and Varus/Valgus stable DATA: Diagnostic tests reviewed for today's visit: X-ray left total knee 05/21/2022: Only single AP view was obtained. Patient was not able to transfer to obtain additional views. Status post left total knee arthroplasty. Appropriate alignment of hardware without periprosthetic fracture or loosening. No acute fracture or dislocation. Minimal surrounding soft tissue swelling, likely postoperative. Provider: Debbie Batista PA-C Completed by: Debbie Batista PA-C documented in this encounter [facility] 07-30-2022 Miscellaneous Notes Received Notice of rule out for pasrr further review from [place] [employer]. Placed in provider's inbox for review. Route to [place] scanning. documented in this encounter [facility] 07-29-2022 Miscellaneous Notes The following approved medication requests have been transmitted electronically. Requested Prescriptions Signed Prescriptions Disp Refills pregabalin (LYRICA) 100 mg capsule 60 capsule 0 Sig: Take 1 capsule by mouth twice daily for 30 days. Authorizing Provider: MORENO OATES oxyCODONE-acetaminophen (PERCOCET) 5-325 mg tablet 120 tablet 0 Sig: Take 1 tablet by mouth four times daily as needed for pain. Authorizing Provider: MORENO OATES diazePAM (VALIUM) 5 mg tablet 60 tablet 0 Sig: Take 1 tablet by mouth twice daily for 30 days. Authorizing Provider: MORENO OATES MD Refill request from [facility] documented in this encounter [facility] 07-26-2022 Miscellaneous Notes Request completed and faxed to Yoly at [facility] fax #[phone] with confirmation of receipt. PDMP reviewed 1 month supply sent Faxed [facility] Placed on Dr. Clemons's desk for completion When signed fax to [facility] giselle Latoya [phone] Still waiting for fax from Yoly, spoke to her again and had her send to another fax machine Yoly from [facility] left message on RN line stating she faxed an order to PCP office asking for Percocet order. States she talked to Dr. Oates who advised he is out of town and to contact well control instructor physician for order. She is going to fax the form to [facility] for the covering physician to review. Patient is out of medication and was due to receive this at 10 AM today for chronic pain. Please look out for order fax coming and return fax as soon as possible or advise Yoly. oxyCODONE-acetaminophen (PERCOCET) 5-325 mg tablet 05/13/22 -- Moreno Oates MD Take 1 tablet by mouth four times daily as needed for pain. MUSHTAQ Boyle called from [facility]. Patient needs this script filled as she only has 2 doses left. Please call Tamar at [phone] for any questions. Thank you. documented in this encounter [facility] 07-22-2022 Miscellaneous Notes Pt admitted at [facility]. PDMP website checked and validated. All prescriptions have been APPROPRIATELY filled. No suspicious activity was identified. 07/22/2022 by Moreno Oates MD The following approved medication requests have been transmitted electronically. Requested Prescriptions Signed Prescriptions Disp Refills diazePAM (VALIUM) 5 mg tablet 60 tablet 0 Sig: Take 1 tablet by mouth twice daily for 30 days. Authorizing Provider: MORENO OATES pregabalin (LYRICA) 100 mg capsule 60 capsule 0 Sig: Take 1 capsule by mouth twice daily for 30 days. Authorizing Provider: MORENO OATES These Rx's last filled on 06/06 Moreno Oates MD Received refill request from [facility]. Refill pended. documented in this encounter [facility] 07-16-2022 Miscellaneous Notes Received lab results from [facility]. Placed in provider's inbox for review. Route to [place] scanning. documented in this encounter [facility] 07-06-2022 History of Present illness Narrative Rx's phoned in over weekend for Lyrica and diazepam. Moreno Oates MD documented in this encounter [facility] 07-05-2022 Miscellaneous Notes Received pt update regarding being lowered to the floor (not a fall) from [facility]. Placed in provider's inbox for review. Route to [place] scanning. documented in this encounter [facility] 06-25-2022 Miscellaneous Notes [facility]. The Rx was filled on 06/06. Sent approval for Rx's to be filled on 07/02 Received refill request from [facility]. Placed in provider's inbox for review. Route to [place] fax documented in this encounter [facility] 06-18-2022 Miscellaneous Notes Received med orders from [facility]. Placed in provider's inbox for review. Route to [place] fax documented in this encounter [facility] 06-12-2022 Note HNO ID: [id number] Author: Karolina Taylor, BLAYNE Service: Radiology Author Type: Technologist Type: Progress Notes Filed: 06/12/2022 3:37 PM Note Text: Radiology Service Progress Note PATIENT NAME: Charlie Nguyen DATE OF SERVICE: June 12, 2022 TIME: 3:37 PM PATIENT IDENTITY VERIFICATION COMPLETED USING TWO (2) IDENTIFIERS: Name and Date of confirmed by patient verbally and Name and Date of confirmed by identification band. FALL SCREENING: Has the patient had 2 falls in the last year or 1 fall with injury or currently using an Ambulatory Assistive Device (Walker, Cane, Wheelchair, Crutches, etc.)? Yes, Patient High Risk for Falls What interventions were put in place to prevent falls during this visit? Yellow Falls Risk Wristband Applied, Instructed Patient to Call for Help if Needed, Offered Assistance with Transfers/Clothing, and Instructed Patient to Remain Seated (Not on Exam Table) Until Exam PATIENT GENDER DATA: Female. status: : No status: NO. PATIENT RELEVANT IMPLANT DATA REVIEWED: Not Applicable RADIOLOGY DEPARTMENT: CT; Exam(s) Completed: Lower extremity PERIPHERAL IV DATA: Not applicable SIGNED BY: BLAYNE Henderson June 12, 2022 3:37 PM [facility] 06-12-2022 History of Present illness Narrative Radiology Service Progress Note PATIENT NAME: Charlie Nguyen DATE OF SERVICE: June 12, 2022 TIME: 3:37 PM PATIENT IDENTITY VERIFICATION COMPLETED USING TWO (2) IDENTIFIERS: Name and Date of confirmed by patient verbally and Name and Date of confirmed by identification band. FALL SCREENING: Has the patient had 2 falls in the last year or 1 fall with injury or currently using an Ambulatory Assistive Device (Walker, Cane, Wheelchair, Crutches, etc.)? Yes, Patient High Risk for Falls What interventions were put in place to prevent falls during this visit? Yellow Falls Risk Wristband Applied, Instructed Patient to Call for Help if Needed, Offered Assistance with Transfers/Clothing, and Instructed Patient to Remain Seated (Not on Exam Table) Until Exam PATIENT GENDER DATA: Female. status: : No status: NO. PATIENT RELEVANT IMPLANT DATA REVIEWED: Not Applicable RADIOLOGY DEPARTMENT: CT; Exam(s) Completed: Lower extremity PERIPHERAL IV DATA: Not applicable SIGNED BY: BLAYNE Henderson June 12, 2022 3:37 PM documented in this encounter [facility] 05-22-2022 Miscellaneous Notes Received lab results from [facility]. Placed in provider's inbox for review. Route to [place] scanning documented in this encounter [facility] 05-21-2022 History of Present illness Narrative Radiology Service Progress Note PATIENT NAME: Charlie Nguyen RADIOLOGY DEPARTMENT: General X-ray: Exam(s) Completed: Lower Extremity X-Ray(s): Knee, AP / Lat / Merchant Left PERIPHERAL IV DATA: Not applicable SIGNED BY: RT Kaylen(R) May 21, 2022 1:10 PM documented in this encounter [facility] 05-21-2022 History of Present illness Narrative xr documented in this encounter [facility] 05-13-2022 Miscellaneous Notes The following approved medication requests have been transmitted electronically. Requested Prescriptions Signed Prescriptions Disp Refills oxyCODONE-acetaminophen (PERCOCET) 5-325 mg tablet 120 tablet 0 Sig: Take 1 tablet by mouth four times daily as needed for pain. Authorizing Provider: MORENO OATES MD According to Nurse on 300 last refill was on 04/03 patient has 3 tablets left; pharmacy shows last script that was sent on 04/26 on 05/10 as it wasn't filled in time. Please send in a new script. [facility] nurse , why are they requesting refill now, it was filled for 30 days on 04/26? Moreno Oates MD documented in this encounter [facility] 03-24-2022 Miscellaneous Notes Received request for pregabalin from [facility]. Placed in provider's inbox for review. Route to [place] fax documented in this encounter [facility] 03-18-2022 Miscellaneous Notes Orders faxed. [facility] is asking that the mammogram orders be placed as soon as possible, as there is availability tomorrow for the testing to be done. Orders signed by Carlos Mejia APRN. Faxed to [facility] Received Mammogram order from [facility]. Placed in provider's inbox for review. Route to [place] fax documented in this encounter [facility] 03-17-2022 Miscellaneous Notes [facility] stated patient has upcoming appt with them. The need orders for bilateral diagnostic mammogram and unilateral US for left breast pain. Please fax to [phone] . documented in this encounter [facility] 03-11-2022 Miscellaneous Notes The following approved medication requests have been transmitted electronically. Requested Prescriptions Signed Prescriptions Disp Refills oxyCODONE-acetaminophen (PERCOCET) 5-325 mg tablet 120 tablet 0 Sig: Take 1 tablet by mouth four times daily as needed for pain. Authorizing Provider: MORENO OATES pregabalin (LYRICA) 100 mg capsule 60 capsule 0 Sig: Take 1 capsule by mouth twice daily for 30 days. Authorizing Provider: MORENO OATES MD documented in this encounter [facility] 03-10-2022 Miscellaneous Notes Received lab results from [facility]. Placed in provider's inbox for review. Route to [place] scanning. documented in this encounter [facility] 03-10-2022 Miscellaneous Notes Received pharmacy orders from [facility]. Placed in provider's inbox for review. Route to [place] fax documented in this encounter [facility] 03-06-2022 Miscellaneous Notes Completed Request were sent with confirmation. (v) [phone] Forms placed in Ma's file. Form was signed and completed and placed in outbox Please fax back Thanks Type of letter/form/fax request - refill Form received from [facility] pharmacy Placed on desk () for completion. Completed form needs to be faxed to [phone]. Route to [place] when form completed for processing documented in this encounter [facility] 02-13-2022 Miscellaneous Notes Received request for assessment of continued Nystatin from [facility]. Placed in provider's inbox for review. Route to [place] fax documented in this encounter [facility] 02-12-2022 Miscellaneous Notes Medication was refilled on 02/05/2022 Received refill request for diazepam 5mg tablets from [facility]. Faxed to covering provider pool. documented in this encounter [facility] 02-10-2022 Miscellaneous Notes Received labs from [facility]. Placed in provider's inbox for review. Route to [place] scanning. documented in this encounter [facility] 02-05-2022 Miscellaneous Notes Received pharmacy orders from [facility]. Placed in provider's inbox for review. Route to [place] fax documented in this encounter [facility] 01-07-2022 Miscellaneous Notes The following approved medication requests have been transmitted electronically. Requested Prescriptions Signed Prescriptions Disp Refills pregabalin (LYRICA) 100 mg capsule 60 capsule 0 Sig: Take 1 capsule by mouth twice daily for 30 days. Authorizing Provider: MORENO OATES MD documented in this encounter [facility] 12-30-2021 Miscellaneous Notes Received prescription request from [facility]/ [facility] Placed in provider's inbox for review. Route to [place] fax documented in this encounter [facility] 12-23-2021 Miscellaneous Notes Received pharmacy recommendation from [facility]. Placed in provider's inbox for review. Route to [place] fax documented in this encounter [facility] 12-23-2021 Miscellaneous Notes Received request for oxycodone 5-325 from [facility]. Placed in provider's inbox for review. Route to [place] fax documented in this encounter [facility] 12-09-2021 Miscellaneous Notes Received labs from [facility]. Placed in provider's inbox for review. Route to [place] scanning. documented in this encounter [facility] 12-03-2021 Miscellaneous Notes The following approved medication requests have been transmitted electronically. Signed Prescriptions Disp Refills diazePAM (VALIUM) 5 mg tablet 60 tablet 0 Sig: Take 1 tablet by mouth twice daily for 30 days. FABIOLA Class: C-IV LARISSA: No Authorizing Provider: MORENO OATES pregabalin (LYRICA) 100 mg capsule 60 capsule 0 Sig: Take 1 capsule by mouth twice daily for 30 days. FABIOLA Class: C-V LARISSA: No Authorizing Provider: MORENO OATES Pt in [facility]. She is seen monthly at facility Moreno Oates MD Last appointment: 12-12-19 Next appointment: na Pharmacy verified in [facility]. Refill(s) requested: Pending Prescriptions Disp Refills DIAZEPAM 5 MG TABLET 60 tablet 0 Sig: Take 1 tablet by mouth twice daily for 30 days. FABIOLA Class: C-IV LARISSA: No PREGABALIN 100 MG CAPSULE 60 capsule 0 Sig: Take 1 capsule by mouth twice daily for 30 days. FABIOLA Class: C-V LARISSA: No Order(s) pended. Please advise. Gabriela Castillo MA, BAR MACHINE OPERATOR documented in this encounter [facility] 11-25-2021 Miscellaneous Notes Fax sent. Received orders for Lyrica for PCP review and sign off from [facility] to be faxed to [facility]. Placed in provider's inbox for review. Route to [place] fax documented in this encounter [facility] 11-21-2021 Miscellaneous Notes [facility]. [facility] would like to know if any new orders are needed? Route to fax. documented in this encounter [facility] 11-19-2021 Miscellaneous Notes The following approved medication requests have been transmitted electronically. Signed Prescriptions Disp Refills oxyCODONE-acetaminophen (PERCOCET) 5-325 mg tablet 120 tablet 0 Sig: Take 1 tablet by mouth four times daily as needed for pain. FABIOLA Class: C-II LARISSA: No Authorizing Provider: MORENO OATES MD [facility] Tamar calling in regards to patients prescription: OxyCodone 5-325 mg tablet Pharmacy contacted them stating they only received a partial script and need a full script from provider. Pharmacy stated it was not signed and that things are missing from script. Tamar said to call pharmacy if any questions: [facility] documented in this encounter [facility] 11-19-2021 Miscellaneous Notes Received refill request from [facility]. Fax sent advising medication has been e-prescribed. documented in this encounter [facility] 11-18-2021 Miscellaneous Notes faxed [facility] for 4 tablets oxycodone 5-325 (pulled from starter box at [facility] Placed in provider inbox for review. Route to fax. documented in this encounter [facility] 10-29-2021 Miscellaneous Notes The following approved medication requests have been transmitted electronically. Signed Prescriptions Disp Refills diazePAM (VALIUM) 5 mg tablet 60 tablet 0 Sig: Take 1 tablet by mouth twice daily for 30 days. FABIOLA Class: C-IV Authorizing Provider: MORENO OATES MD documented in this encounter [facility] 10-22-2021 Miscellaneous Notes Patient's request for medication is as follows: Signed Prescriptions Disp Refills diazePAM (VALIUM) 5 mg tablet 60 tablet 0 Sig: Take 1 tablet by mouth every 12 hours as needed for up to 30 days. FABIOLA Class: C-IV LARISSA: No Authorizing Provider: MORENO OATES Refused Prescriptions Disp Refills oxyCODONE-acetaminophen (PERCOCET) 5-325 mg tablet 120 tablet 0 Sig: Take 1 tablet by mouth four times daily as needed for pain. FABIOLA Class: C-II LARISSA: No Refused By: ENDER OATES Reason for Refusal: Records indicate that there is a valid prescription at the pharmacy Prescription(s) as above. Please process accordingly. Moreno Oates MD Pharmacy verified in [facility] Patient has been identified by name and date of : Yes Patient aware RX will be sent to pharmacy. No need to notify patient. Pharmacy phones for refill(s): Pending Prescriptions Disp Refills OXYCODONE-ACETAMINOPHEN 5 MG-325 MG TABLET 120 tablet 0 Sig: Take 1 tablet by mouth four times daily as needed for pain. FABIOLA Class: C-II LARISSA: No DIAZEPAM 5 MG TABLET 60 tablet 0 Sig: Take 1 tablet by mouth every 12 hours as needed for up to 30 days. FABIOLA Class: C-IV LARISSA: No Date of last office visit : 12/30/2018 Date of next office visit : Visit date not found Last 2 Encounter Wt Readings: Date: Wt: 01/06/2021 111.7 kg (246 lb 4.1 oz) 12/19/2020 105.2 kg (232 lb) Not applicable Please advise. Fadumo Rahman LPN documented in this encounter [facility] 10-09-2021 Miscellaneous Notes Pt lives at [facility]. The following approved medication requests have been transmitted electronically. Signed Prescriptions Disp Refills diazePAM (VALIUM) 5 mg tablet 60 tablet 0 Sig: Take 1 tablet by mouth every 12 hours as needed for up to 30 days. FABIOLA Class: C-IV LARISSA: No Authorizing Provider: MORENO OATES Pharmacy Information Pharmacy Address Telephone [facility] [address] [place] [address] Moreno Oates MD documented in this encounter [facility] 10-08-2021 Miscellaneous Notes Received request for sign off for medication from [facility]. Placed in provider's inbox for review. Route to [place] fax documented in this encounter [facility] 10-07-2021 Miscellaneous Notes Received labs from [facility]. Placed in provider's inbox for review. Route to [facility] scanning. documented in this encounter [facility] 10-04-2021 Miscellaneous Notes [facility] pt. The following approved medication requests have been transmitted electronically. Pending Prescriptions Disp Refills PREGABALIN 100 MG CAPSULE 60 capsule 0 Sig: Take 1 capsule by mouth twice daily for 30 days. FABIOLA Class: C-V LARISSA: No Moreno Oates MD Pharmacy verified in [facility] Patient has been identified by name and date of : Yes Patient aware RX will be sent to pharmacy. No need to notify patient. Pharmacy phones for refill(s): Pending Prescriptions Disp Refills PREGABALIN 100 MG CAPSULE 60 capsule 0 Sig: Take 1 capsule by mouth twice daily for 30 days. FABIOLA Class: C-V LARISSA: No Date of last office visit : Visit date not found Date of next office visit : Visit date not found Last 2 Encounter Wt Readings: Date: Wt: 01/06/2021 111.7 kg (246 lb 4.1 oz) 12/19/2020 105.2 kg (232 lb) Not applicable Please advise. Fadumo Rahman LPN documented in this encounter [facility] 09-27-2021 Miscellaneous Notes [facility] patient. documented in this encounter [facility] 08-27-2021 Miscellaneous Notes Addended by: SHAMIKA SILVEIRA on: 08/27/2021 01:58 PM Modules accepted: Orders Received 08/27/2021 from [facility]. Placed in provider's inbox for review. Route to [place] for faxing Order to be signed for Lyrica 100 mg BID documented in this encounter [facility] 08-26-2021 Miscellaneous Notes Pt at [facility], she's seen there monthly The following approved medication requests have been transmitted electronically. Signed Prescriptions Disp Refills diazePAM (VALIUM) 5 mg tablet 60 tablet 0 Sig: Take 1 tablet by mouth every 12 hours as needed for up to 30 days. FABIOLA Class: C-IV LARISSA: No Authorizing Provider: MORENO OATES MD Pharmacy verified in [facility] Patient has been identified by name and date of : Yes Patient aware RX will be sent to pharmacy. No need to notify patient. Patient phones for refill(s): Pending Prescriptions Disp Refills DIAZEPAM 5 MG TABLET 60 tablet 0 Sig: Take 1 tablet by mouth every 12 hours as needed for up to 30 days. FABIOLA Class: C-IV LARISSA: No Date of last office visit : 12/30/2018 Date of next office visit : Visit date not found Last 2 Encounter Wt Readings: Date: Wt: 01/06/2021 111.7 kg (246 lb 4.1 oz) 12/19/2020 105.2 kg (232 lb) Not applicable Please advise. Shamika Silveira MA documented in this encounter [facility] 07-08-2021 Miscellaneous Notes Received 07/08/2021 from [facility]. Placed in provider's inbox for review. Route to [place] for scanning and fax. documented in this encounter [facility] 01-15-2021 Hospital Discharge instructions Nehal Madden DO - 01/15/2021 Please return to the ED for any fevers or shortness of breath. Otherwise resolved with your primary care physician as well as your orthopedic surgeon in the next few days. documented in this encounter [facility] Work Phone: 01-08-2021 Note HNO ID: [id number] Author: Jasen Ewing DO Service: Orthopaedic Surgery Author Type: Resident Type: Progress Notes Filed: 01/08/2021 10:24 AM Note Text: ORTHOPEDIC PROGRESS NOTE SERVICE DATE: 01/08/2021 SERVICE TIME: 7:50 AM Subjective Patient states that they are comfortable Well Controlled knee(s) pain. Denies fevers, chills, chest pain, SOB Objective VITAL SIGNS: BP 136/84 Pulse 65 Temp 36.4 ?C (97.5 ?F) (Oral) Resp 16 Wt 111.7 kg (246 lb 4.1 oz) LMP (LMP Unknown) SpO2 95% BMI 34.35 kg/m? INTAKE AND OUTPUT: Intake/Output Summary (Last 24 hours) at 01/08/2021 0750 Last data filed at 01/08/2021 0552 Gross per 24 hour Intake ? Output 500 ml Net -500 ml PHYSICAL EXAMINATION: Right Lower Extremity: Incision c/d/i without erythema or drainage, sutures intact. Compartments soft and compressible appropriate TTP about knee Motor intact to DF/PF/EHL Sensory intact to light touch L3-S1. PT/DP pulses palpable. Tolerated AROM from 5-80 degrees knee flexion Problem Review and Assessment: Patient monitored, no new events overnight. LABS: Recent Labs 01/08/21 0548 01/06/21 1017 HB 10.6* 12.7 HCT 33.9* 40.5 POST OPERATIVE COMPLICATIONS: Complicated by: uneventful/none DATA: Diagnostic tests reviewed for today's visit: Most recent labs and imaging results. Assessment/Plan S/P * No surgery found * on POSTOP PLAN: Weight Bearing : WBAT RLE ROM: as tolerated, encourage knee ROM Dressing: none Drains: none Musa: none DVT prophylaxis: restart home eliquis, IPDs Pain control: multimodal Antibiotics: cefepime/vanc per ID PT/OT: ordered ID consulted, recs appreciated Medicine consulted, co-management appreciated NGTD on blood cultures Case Management for discharge planning: plan to return to SNF, anticipate today Ok to d/c from ortho standpoint Please contact the orthopedic resident well control instructor with any questions or concerns. ACTIVE PROBLEM LIST Osteoarthritis of Right Knee Ms (Multiple Sclerosis) (Hcc) Essential Hypertension Lumbar Disc Herniation Current Smoker Knee Pain Primary Osteoarthritis of Left Knee Gastroesophageal Reflux Disease Without Esophagitis Headache S/P Total Knee Arthroplasty Extensor Tendon Disruption Knee Pain, Right S/P Revision of Total Knee, Right Rupture of Quadriceps Muscle Acute Deep Vein Thrombosis (Dvt) of Right Lower Extremity (Hcc) Acute Respiratory Failure With Hypoxia (Hcc) Chronic Pain Syndrome Chronic Prescription Benzodiazepine Use Chronic Prescription Opiate Use Repeat Prescription Issue Mechanical Complication of Internal Orthopedic Device, Implant Or Graft (Hcc) Failed Total Knee Arthroplasty (Hcc) Delirium Chronic Pain of Right Knee Hypotension History of Pulmonary Embolism Septic Arthritis (Hcc) Urinary Tract Infection Hypoxia Seizure (Hcc) Obesity, Class I, Bmi 30-34.9 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 Denies fevers, chills, chest pain, SOB Objective VITAL SIGNS: BP 101/65 Pulse (!) 49 Temp 36.4 ?C (97.5 ?F) (Oral) Resp 16 LMP (LMP Unknown) SpO2 98% INTAKE AND OUTPUT: Intake/Output Summary (Last 24 hours) at 01/07/2021 1228 Last data filed at 01/07/2021 0345 Gross per 24 hour Intake 1030 ml Output ? Net 1030 ml PHYSICAL EXAMINATION: Right Lower Extremity: Incision c/d/i without erythema or drainage, sutures intact. Compartments soft and compressible appropriate TTP about knee Motor intact to DF/PF/EHL Sensory intact to light touch L3-S1. PT/DP pulses palpable. Tolerated AROM from 5-80 degrees knee flexion Problem Review and Assessment: Patient monitored, no new events overnight. LABS: Recent Labs 01/06/21 1017 HB 12.7 HCT 40.5 POST OPERATIVE COMPLICATIONS: Complicated by: uneventful/none DATA: Diagnostic tests reviewed for today's visit: Most recent labs and imaging results. Assessment/Plan S/P * No surgery found * on POSTOP PLAN: Weight Bearing : WBAT RLE ROM: as tolerated, encourage knee ROM Dressing: none Drains: none Musa: none DVT prophylaxis: restart home eliquis , IPDs Pain control: multimodal Antibiotics: cefepime/vanc per ID PT/OT: ordered ID consulted, recs appreciated Medicine consulted, co-management appreciated Case Management for discharge planning: plan to return to SNF, anticipate tomorrow Follow up with Dr. Parrish as previously instructed Please contact the orthopedic resident well control instructor with any questions or concerns. ACTIVE PROBLEM LIST Osteoarthritis of Right Knee Ms (Multiple Sclerosis) ([facility]) Essential Hypertension Lumbar Disc Herniation Current Smoker Knee Pain Primary Osteoarthritis of Left Knee Gastroesophageal Reflux Disease Without Esophagitis Headache S/P Total Knee Arthroplasty Extensor Tendon Disruption Knee Pain, Right S/P Revision of Total Knee, Right Rupture of Quadriceps Muscle Acute Deep Vein Thrombosis (Dvt) of Right Lower Extremity ([facility]) Acute Respiratory Failure With Hypoxia ([facility]) Chronic Pain Syndrome Chronic Prescription Benzodiazepine Use Chronic Prescription Opiate Use Repeat Prescription Issue Mechanical Complication of Internal Orthopedic Device, Implant Or Graft ([facility]) Failed Total Knee Arthroplasty ([facility]) Delirium Chronic Pain of Right Knee Hypotension History of Pulmonary Embolism Septic Arthritis ([facility]) Urinary Tract Infection Hypoxia Seizure ([facility]) Obesity, Class I, Bmi 30-34.9 Infection of Prosthetic Right Knee Joint ([facility]) Joint Infection ([facility]) Dysuria Septic Arthritis of Knee, Right ([facility]) Jasen Ewing DO 01/07/2021 12:28 PM Orthopedic Surgery Resident [id number] [facility] 01-07-2021 Note HNO ID: [id number] Author: Brina Peterson RN Service: Care Management Author Type: Registered Nurse Type: Juanjo Mgt Initial Assessment Filed: 01/07/2021 11:17 AM Note Text: CARE MANAGEMENT: ASSESSMENT AND DISCHARGE PLAN SERVICE DATE: January 07, 2021 SERVICE TIME: 11:00 AM PRIMARY CARE PHYSICIAN: Moreno Oates MD ADMISSION STATUS: Inpatient Needs Prior to Discharge: To Be Determined;Accepting Facility;Discharge Transportation;Discharge Prescriptions MEDICAL: [place] 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 Last discharge within 30 days: Yes Is this a planned readmission?: No Unplanned Reason: New symptoms of underlying disease Followed Up with Appointment Prior to Admission: Appointment completed Advance Directive: Current Advance Directive: Health Care Power of Wool Merchant;Living Will In Chart: Yes Up To Date and Valid: Yes Health LiteracyHow often do you need to have someone help you when you read instructions, pamphlets, or other written material from your doctor or pharmacy? : 3 - Sometimes How confident are you filling out medical forms by yourself?: 3 - Somewhat If Patient scores > 3 on either question, the following interventions were put into place:: Use of plain language and active listening with Patient and family;Use concrete and specific phrases, avoid medical jargon;Sit with Patient;Gave Patient the opportunity to ask questions Baseline Mental Status Prior to this Illness what was the patient's Baseline Mental Status?: Alert AND Oriented Prior to this illness, has anyone described the patient having any of the following behaviors?: Not Applicable Relationship of the informant to the patient:: Self Functional Status: Needs Assistance Does Patient Currently Receive Any Community Services or Home Care?: None Equipment Prior to Admission: Other: See Comment (provisions by nursing facility) Has the Patient Been in a Halfway Facility in the Past 30 days?: Yes Location and Dates: [facility] (dates unknown- long term care social worker resident) SOCIAL: Living Arrangements: Nursing Facility Facility Information: [facility] giselle Klein Financial Resources: Disabled Primary Contact: Extended Emergency Contact Information Primary Emergency Contact: Callum Nguyen Mobile Relation: Son Supportive Patient Contact:: Yes Contact Resources: Family;Other Family Name/Phone: Vicente Driscoll/daughter [phone] POA Name/Phone: Callum Nguyen/[phone] Caregiver AssessmentCaregiver is ready, willing and able to meet the patient's needs as recommended by the inter-professional team:: Other: See Comment (To be determined) Does the patient have an acute stroke diagnosis, or has the patient had a stroke during this admission?: No Patient's transition needs and plan for meeting these needs: patient states plan is to return to [facility] Patient's perception of need for this admission: right knee pain, fever Medication Adherance I am convinced of the importance of my prescription medication: 0 - Agree Completely I worry that my prescription medication will do more harm than good to me : 0 - Disagree Mostly I feel financially burdened by my [id number] expenses for my prescription medication:: 0 - Disagree Completely Risk Score: 0 Patient is categorized as: Low risk < 2 Are you interested in bedside delivery of your medications? No Is Patient Psychosocially Complex?: No ASSESSMENT AND PLAN: Medical Needs: Medical Needs: IV Antibiotics;Two or more chronic diseases;Fall risk or frequent falls Psychosocial Needs: Psychosocial Needs: None FREEDOM OF CHOICE EXPLAINED: Macy of Choice Given: Yes (patient states plan is to return to [facility]) Provider list within the patient's requested geographic area shared with the patient/family: No Quality and resource use metrics shared with the patient that are relevant to the patient's goals of care and treatment preferences:: No Reason: patient decines states plan is to return to [facility] POTENTIAL TRANSITION PLANS To Be Determined;Halfway Facility/Intermediate Care Facility [facility] from [facility], for right knee pain AND fever. Patient states is [facility] resident at facility and plan is to return when medically cleared for discharge. PCP Dr. Moreno Oates. SIGNATURE: Brina Peterson RN PATIENT NAME: Charlie Nguyen DATE: January 07, 2021 MR (more content not included)... [facility] 01-07-2021 Note HNO ID: [id number] Author: Jasen Ewing DO Service: Orthopaedic Surgery Author Type: Resident Type: Plan of Care Filed: 01/07/2021 10:44 AM Note Text: Orthopedic Surgery Plan of Care Note Charlie A Patrick Ok for diet. No operative intervention today. Will discuss further management with staff. Continue IV antibiotics. Please contact the orthopedic resident well control instructor with any questions or concerns. Jasen Ewing DO 01/07/2021 10:43 AM Orthopedic Surgery Resident [id number] [facility] 01-07-2021 Note HNO ID: [id number] Author: Kristen Melton APRN.CNP Service: General Internal Medicine Author Type: Nurse Practitioner Type: Progress Notes Filed: 01/07/2021 6:44 AM Note Text: Attestation signed by Milton Fernandez MD at 01/07/2021 2:32 PM I have reviewed the above note obtained and documented by the FURNITURE FINISHER/PA. I have discussed the case and management of the patient's care. The following comments revise or confirm relevant bey components of the note. Milton Fernandez MD 2:32 PM CONSULT PROGRESS NOTE - INTERNAL MEDICINE PATIENT NAME: Charlie Nguyen SERVICE DATE: 01/07/2021 SERVICE TIME: 6:23 AM ADMITTING PHYSICIAN: Kurtis Danielson MD ASSESSMENT AND PLAN Septic arthritis of knee, right Rt knee PJI s/p washout 12/19/20 Chronic pain syndrome Morbid obesity Hx of DVT MS Routine labs Bowel regimen Incentive spirometer encouraged abx per ID Ac on hold per sx for possible surgical intervention Await pending labs SUBJECTIVE In no acute distress INTERVAL HISTORY In bed. No pain, chest pain, sob, nausea/ vomiting or symptoms. Woken up Consults notes reviewed OBJECTIVE PHYSICAL EXAM: Patient Vitals for the past 24 hrs: BP Temp Temp src Pulse Resp SpO2 01/07/21 0411 114/64 36.4 ?C (97.5 ?F) Oral (!) 56 18 92 % 01/06/21 2345 120/68 36.8 ?C (98.2 ?F) Oral 66 17 93 % 01/06/212011 128/73 37 ?C (98.6 ?F) Oral 72 18 96 % 01/06/21 1515 135/71 37.1 ?C (98.8 ?F) Oral 79 16 95 % 01/06/21 0744 117/78 37.1 ?C (98.8 ?F) Oral 64 16 100 % There is no height or weight on file to calculate BMI. Neuro- no abnormal movements HEENT-head atraumatic Neck-supple Heart- S1, S2, RRR Lungs-ctab Abdomen - soft, nontender, bowel sounds positive Extremities- No edema Skin- no change Joint- no change MEDICATIONS: Current Facility-Administered Medications Medication Dose Route Frequency - diazePAM 5 mg tab(s) (VALIUM) 5 mg ORAL q 12 H PRN - pregabalin 100 mg cap(s) (LYRICA) 100 mg ORAL BID - divalproex DR 250 mg tab(s) (DEPAKOTE) 250 mg ORAL TID - QUEtiapine 50 mg tablet (SEROquel) 50 mg ORAL AT BEDTIME - metoprolol tartrate (short acting) 25 mg tab(s) (LOPRESSOR) 25 mg ORAL BID - pantoprazole DR 40 mg tab(s) (PROTONIX) 40 mg ORAL DAILY - PARoxetine 40 mg tab(s) (PAXIL) 40 mg ORAL DAILY - NaCl 0.9% iv flush bag 20 mL INTRAVENOUS PRN - sodium chloride 0.9 % (flush) 3-5 mL (BD POSIFLUSH) 3-5 mL INTRAVENOUS q 12 H - magnesium hydroxide 400 mg/5 mL 30 mL (MOM) 30 mL ORAL DAILY PRN - docusate sodium 100 mg cap(s) (COLACE) 100 mg ORAL BID PRN - bisacodyl 10 mg suppository (DULCOLAX) 10 mg RECTAL DAILY PRN - melatonin 3 mg tab(s) 3 mg ORAL DAILY (8 PM) - oxyCODONE IR 5-10 mg tab(s) (ROXICODONE) 5-10 mg ORAL q 6 H PRN - cefepime 2 g in D5W 100 mL MB+ (MAXIPIME) 2 g INTRAVENOUS q 12 HR - vancomycin 1.25 g in D5W 250 mL (VANCOCIN) 1.25 g INTRAVENOUS q 24 HR - ondansetron (PF) 4 mg injection (ZOFRAN) 4 mg INTRAVENOUS q 6 H PRN - acetaminophen 650 mg CUP (TYLENOL) 650 mg ORAL q 6 H DATA: Diagnostic tests reviewed for today's visit: Most recent labs Most recent imaging Intake/Output Summary (Last 24 hours) at 01/07/2021 0621 Last data filed at 01/06/2021 2354 Gross per 24 hour Intake 660 ml Output ? Net 660 ml Above Discussed with Dr Fernandez SIGNATURE: Kristen Melton APRN.SENIOR CONSUMER INSIGHTS CONSULTANT DATE: January 07, 2021 TIME: 6:21 AM [facility] 12-26-2020 Note HNO ID: [id number] Author: Kimberli Israel RN Service: Care Management Author Type: Registered Nurse Type: Care Mgt Progress Note Filed: 12/26/2020 4:50 PM Note Text: CARE MANAGEMENT DISCHARGE NOTE SERVICE DATE: 12/26/2020 SERVICE TIME: 4:49 PM LOS: 7 days Admission Date: 12/19/2020 DISCHARGE ARRANGEMENT (list agency and phone number) Discharge Arrangement: Extended care facility Provider Name: see below Phone: same CAREGIVER ASSESSMENT: HANDOFF COMMUNICATION: Handoff to: Primary Care Physician TRANSPORTATION ARRANGEMENTS: Transportation Arrangements: Ambulance/[facility] Transportation Agency and Phone #:: [facility] [phone] Date of Trip: 12/26/20 Time of Trip: 1829 Type of Service: BLS Non-emergency Is Patient Medicaid Pending?: No Discussion of financial coverage occurred with: (N/A) Hair Cutter Location: [place] Destination: [facility] Financial Care Management Responsibility: None ADDITIONAL CONTACT RESOURCES: Discharge Information Row Name ED to Hosp-Admission (Current) from 12/19/2020 in [id number]/Vascular Halfway Facility Agency [facility] Needs Prior to Discharge: Ready for Discharge Transportation Arrangements: Ambulance/[facility] Transportation Agency and Phone #:: [facility] [phone] Date of Trip: 07/28/21 Time of Trip: 183 Type of Service: BLS Non-emergency Is Patient Medicaid Pending?: No Discussion of financial coverage occurred with: (N/A) Hair Cutter Location: [place] Destination: [facility] Financial Care Management Responsibility: None Pt ready for d/c today. SIGNATURE: Kimberli Israel RN PATIENT NAME: Charlie Nguyen DATE: December 26, 2020 TIME: 4:48 PM PAGER/CONTACT #: Kimberli Israel [phone] or [phone] [facility] 12-26-2020 Note HNO ID: [id number] Author: Alexandria Reddy MD Service: Hospital Medicine Author Type: Physician Type: Progress Notes Filed: 12/26/2020 2:33 PM Note Text: DEPARTMENT OF HOSPITAL MEDICINE PROGRESS NOTE SERVICE DATE: 12/26/2020 SERVICE TIME: 2:31 PM Hospital Medicine/Primary Attending: Alexandria Reddy MD NIGHT AND WEEKEND COVERAGE: Patient admitted to [facility]. Page [phone] between 7 am and 5 pm for patient issues; from 5 p to 7 am, page the night hospitalist at pager [phone] Subjective INTERVAL HPI: Diarrhea improving Issues with BP intermittently, and pain meds subsequently held Patient not happy with holding pain meds. Current Facility-Administered Medications Medication Dose Route Frequency - diazePAM 5 mg tab(s) (VALIUM) 5 mg ORAL q 12 H PRN - valproic acid 250 mg CUP (DEPAKENE) 250 mg ORAL TID - ondansetron 4 mg tab(s) (ZOFRAN) 4 mg ORAL q 8 H PRN - QUEtiapine 50 mg tablet (SEROquel) 50 mg ORAL AT BEDTIME - polyethylene glycol 3350 17 g packet (MIRALAX, GLYCOLAX) 17 g ORAL DAILY - pantoprazole DR 40 mg tab(s) (PROTONIX) 40 mg ORAL DAILY - NaCl 0.9% iv flush bag 20 mL INTRAVENOUS PRN - sodium chloride 0.9 % (flush) 3-5 mL (BD POSIFLUSH) 3-5 mL INTRAVENOUS q 12 H - nicotine 21 mg/24 hr 1 Patch (NICODERM) 1 Patch TRANSDERMAL DAILY - nicotine -- REMOVE patch OTHER DAILY - nicotine - verify patch OTHER q 8 H - PARoxetine 40 mg tab(s) (PAXIL) 40 mg ORAL DAILY - potassium chloride ER 20 mEq tab(s) (K-DUR, KLOR-CON) 20 mEq ORAL BID - pregabalin 100 mg cap(s) (LYRICA) 100 mg ORAL BID - efcqeyw-ruqbbbdap-usvdrgy D3 500 mg(1,250mg) -200 unit 2 tablet 2 tablet ORAL BID - senna 17.2 mg tab(s) (SENOKOT) 17.2 mg ORAL AT BEDTIME - sodium chloride 0.9 % (flush) 3-5 mL (BD POSIFLUSH) 3-5 mL INTRAVENOUS q 12 H - acetaminophen 650 mg tab(s) (TYLENOL) 650 mg ORAL q 8 H - metoprolol tartrate (short acting) 50 mg tab(s) (LOPRESSOR) 50 mg ORAL BID - sodium chloride 0.9 % (flush) 10 mL (BD POSIFLUSH) 10 mL INTRAVENOUS q 12 H - sodium chloride 0.9 % (flush) 20 mL (BD POSIFLUSH) 20 mL INTRAVENOUS PRN - oxyCODONE IR 10 mg tab(s) (ROXICODONE) 10 mg ORAL q 4 H PRN - cefepime 2 g in D5W 100 mL MB+ (MAXIPIME) 2 g INTRAVENOUS q 12 HR - vancomycin 1.25 g in D5W 250 mL (VANCOCIN) 1.25 g INTRAVENOUS q 24 HR - apixaban 5 mg tab(s) (ELIQUIS) 5 mg ORAL BID Objective PHYSICAL EXAMINATION BP 99/64 Pulse 68 Temp 36.7 ?C (98.1 ?F) (Oral) Resp 16 Ht 180.3 cm (5' 11) Wt 105.2 kg (232 lb) LMP (LMP Unknown) SpO2 98% BMI 32.36 kg/m? Lying in bed. Upset, refusing exam Lines, Drains, and Airways Line Central Line Single Lumen 12/21/20 1200 Peripherally Inserted (PICC) Left Arm Through Introducer 4.0 Trinidadian 5 days Drain External Collection Device 12/21/20 0930 5 days DATA: Diagnostic tests reviewed for today's visit: Most recent labs Most recent imaging Assessment/Plan Problem List Joint infection (HCC) POA: Yes Acute deep vein thrombosis (DVT) of right lower extremity (HCC) POA: Yes MS (multiple sclerosis) (HCC) POA: Yes Essential hypertension POA: Yes Current smoker POA: Yes Chronic pain of right knee POA: Yes Seizure (HCC) POA: Yes Dysuria POA: . HOSPITAL COURSE: 65 Y F with hx of acute PE, DVT, on eliquis presenting with dysuria and acute right knee pain, treated for UTI and septic arthritis. ? Septic arthritis of R-knee S/P joint aspirate, fluid analysis suspicious for septic joint; s/p wash Ortho consulted treated with vanc and zosyn; operative cultures w NTD. antibiotics transitioned to Cefepime and vancomycin. Pain meds PRN. No changes per patient request. Hold as neededfor sedation and hypotension. UTI UA with pyuria; culture pos for pseudomonas - patient unable to use quinolone due to quetiapine use - Treated with zosyn . Diarrhea x 3 overnight patient is also on laxatives because of heavy narcotics use. Hold laxative C diff negative.? ? Hx of DVT and PE Dx in 2018; on eliquis. stable s/p R-knee wash - Ortho managing Anticoagulation post surgery; now cleared to resume Eliquis, as it is after POD5 ? MS (multiple sclerosis) (HCC) POA: Yes WC bound Urine and fecal incontinence LE parasthesia ? Essential hypertension POA: Yes Controlled - Continue Metoprolol; hold HCTZ? ? Current smoker POA: Yes - Nicotine patches ? Seizure (HCC) POA: Yes - Continue Depakote ? Depressoin/Anxiety - c/w paxil and seroquil Discharge planning: if C diff negative and BP stabilizes, can be cleared for discharge. Medication and Non-Pharmacologic VTE Prophylaxis/Anticoagulants Anticoagulant AND Antiplatelet Medications (From admission, onward) Start Dose Route Frequency Last Action Ordered Stop 12/25/20 1400 apixaban 5 mg tab(s) (ELIQUIS) (apixaban tab(s) (ELIQUIS)) 5 mg ORAL 2 TIMES DAILY Given, 12/26 82012/25/20 1344 -- 12/19/202014 pneumatic compression stockings (mo,oh) 12/19/20 0900 activ (more content not included)... [facility] 12-25-2020 Note HNO ID: [id number] Author: Alexandria Reddy MD Service: Hospital Medicine Author Type: Physician Type: Progress Notes Filed: 12/25/2020 1:43 PM Note Text: DEPARTMENT OF HOSPITAL MEDICINE PROGRESS NOTE SERVICE DATE: 12/25/2020 SERVICE TIME: 1:35 PM Hospital Medicine/Primary Attending: Alexandria Reddy MD NIGHT AND WEEKEND COVERAGE: Patient admitted to [facility]. Page [phone] between 7 am and 5 pm for patient issues; from 5 p to 7 am, page the night hospitalist at pager [phone] Subjective INTERVAL HPI: Issues with hypotension earlier. Patient upset that pain medication had to be held because of hypotension and lethargy. Explained this in detail, as did RN. Issues with diarrhea overnight. C diff pending Current Facility-Administered Medications Medication Dose Route Frequency - diazePAM 5 mg tab(s) (VALIUM) 5 mg ORAL q 12 H PRN - valproic acid 250 mg CUP (DEPAKENE) 250 mg ORAL TID - ondansetron 4 mg tab(s) (ZOFRAN) 4 mg ORAL q 8 H PRN - QUEtiapine 50 mg tablet (SEROquel) 50 mg ORAL AT BEDTIME - polyethylene glycol 3350 17 g packet (MIRALAX, GLYCOLAX) 17 g ORAL DAILY - pantoprazole DR 40 mg tab(s) (PROTONIX) 40 mg ORAL DAILY - NaCl 0.9% iv flush bag 20 mL INTRAVENOUS PRN - sodium chloride 0.9 % (flush) 3-5 mL (BD POSIFLUSH) 3-5 mL INTRAVENOUS q 12 H - nicotine 21 mg/24 hr 1 Patch (NICODERM) 1 Patch TRANSDERMAL DAILY - nicotine -- REMOVE patch OTHER DAILY - nicotine - verify patch OTHER q 8 H - PARoxetine 40 mg tab(s) (PAXIL) 40 mg ORAL DAILY - potassium chloride ER 20 mEq tab(s) (K-DUR, KLOR-CON) 20 mEq ORAL BID - pregabalin 100 mg cap(s) (LYRICA) 100 mg ORAL BID - ewssmha-gxmfferru-tcxxeld D3 500 mg(1,250mg) -200 unit 2 tablet 2 tablet ORAL BID - senna 17.2 mg tab(s) (SENOKOT) 17.2 mg ORAL AT BEDTIME - enoxaparin 40 mg injection (LOVENOX) 40 mg SUBCUTANEOUS q 24 HR - sodium chloride 0.9 % (flush) 3-5 mL (BD POSIFLUSH) 3-5 mL INTRAVENOUS q 12 H - acetaminophen 650 mg tab(s) (TYLENOL) 650 mg ORAL q 8 H - metoprolol tartrate (short acting) 50 mg tab(s) (LOPRESSOR) 50 mg ORAL BID - sodium chloride 0.9 % (flush) 10 mL (BD POSIFLUSH) 10 mL INTRAVENOUS q 12 H - sodium chloride 0.9 % (flush) 20 mL (BD POSIFLUSH) 20 mL INTRAVENOUS PRN - oxyCODONE IR 10 mg tab(s) (ROXICODONE) 10 mg ORAL q 4 H PRN - cefepime 2 g in D5W 100 mL MB+ (MAXIPIME) 2 g INTRAVENOUS q 12 HR - vancomycin 1.25 g in D5W 250 mL (VANCOCIN) 1.25 g INTRAVENOUS q 24 HR - NaCl 0.9% iv infusion 100 mL/hr INTRAVENOUS CONTINUOUS Objective PHYSICAL EXAMINATION BP 118/64 Pulse 68 Temp 36.3 ?C (97.3 ?F) (Oral) Resp 15 Ht 180.3 cm (5' 11) Wt 105.2 kg (232 lb) LMP (LMP Unknown) SpO2 92% BMI 32.36 kg/m? Lying in bed. Upset, refusing exam Lines, Drains, and Airways Line Central Line Single Lumen 12/21/20 1200 Peripherally Inserted (PICC) Left Arm Through Introducer 4.0 Trinidadian 4 days Drain External Collection Device 12/21/20 0930 4 days DATA: Diagnostic tests reviewed for today's visit: Most recent labs Most recent imaging Assessment/Plan Problem List Joint infection (HCC) POA: Yes Acute deep vein thrombosis (DVT) of right lower extremity (HCC) POA: Yes MS (multiple sclerosis) ([facility]) POA: Yes Essential hypertension POA: Yes Current smoker POA: Yes Chronic pain of right knee POA: Yes Seizure ([facility]) POA: Yes Dysuria POA: . HOSPITAL COURSE: 65 Y F with hx of acute PE, DVT, on eliquis presenting with dysuria and acute right knee pain, treated for UTI and septic arthritis. ? Septic arthritis of R-knee S/P joint aspirate, fluid analysis suspicious for septic joint; s/p wash Ortho consulted treated with vanc and zosyn; operative cultures w NTD. antibiotics transitioned to Cefepime and vancomycin. Pain meds PRN. No changes per patient request. Held earlier today due to sedation and hypotension. UTI UA with pyuria; culture pos for pseudomonas - patient unable to use quinolone due to quetiapine use - Treated with zosyn . Diarrhea x 3 overnight patient is also on laxatives because of heavy narcotics use. Hold laxative Check for C diff given patient's active broad spectrum antibiotics use.? ? Hx of DVT and PE Dx in 2018; on eliquis. stable s/p R-knee wash - Ortho managing Anticoagulation post surgery; now cleared to resume Eliquis, as it is after POD5 ? MS (multiple sclerosis) ([facility]) POA: Yes WC bound Urine and fecal incontinence LE parasthesia ? Essential hypertension POA: Yes Controlled - Continue Metoprolol; hold HCTZ? ? Current smoker POA: Yes - Nicotine patches ? Seizure ([facility]) POA: Yes - Continue Depakote ? Depressoin/Anxiety - c/w paxil and seroquil Discharge planning: if C diff negative and BP stabilizes, can be cleared for discharge. Medication and Non-Pharmacologic VTE Prophylaxis/Anticoagulants Anticoagulant AND Antiplatelet Medications (From admission, onward) Start Dose Route Frequency Last Action Orde (more content not included)... [facility] 12-25-2020 Note HNO ID: [id number] Author: Sanjana Tarango MD Service: Infectious Disease Author Type: Physician Type: Progress Notes Filed: 12/25/2020 9:32 AM Note Text: INFECTIOUS DISEASE PROGRESS NOTE ID service following patient for PJI right knee Subjective: Afebrile Having diarrhea C diff pending ROS: + pain + diarrhea Current Facility-Administered Medications Medication Dose Route Frequency - diazePAM 5 mg tab(s) (VALIUM) 5 mg ORAL q 12 H PRN - valproic acid 250 mg CUP (DEPAKENE) 250 mg ORAL TID - ondansetron 4 mg tab(s) (ZOFRAN) 4 mg ORAL q 8 H PRN - QUEtiapine 50 mg tablet (SEROquel) 50 mg ORAL AT BEDTIME - polyethylene glycol 3350 17 g packet (MIRALAX, GLYCOLAX) 17 g ORAL DAILY - pantoprazole DR 40 mg tab(s) (PROTONIX) 40 mg ORAL DAILY - NaCl 0.9% iv flush bag 20 mL INTRAVENOUS PRN - sodium chloride 0.9 % (flush) 3-5 mL (BD POSIFLUSH) 3-5 mL INTRAVENOUS q 12 H - nicotine 21 mg/24 hr 1 Patch (NICODERM) 1 Patch TRANSDERMAL DAILY - nicotine -- REMOVE patch OTHER DAILY - nicotine - verify patch OTHER q 8 H - PARoxetine 40 mg tab(s) (PAXIL) 40 mg ORAL DAILY - potassium chloride ER 20 mEq tab(s) (K-DUR, KLOR-CON) 20 mEq ORAL BID - pregabalin 100 mg cap(s) (LYRICA) 100 mg ORAL BID - gnthbbi-gpnhjpueb-pbjidyn D3 500 mg(1,250mg) -200 unit 2 tablet 2 tablet ORAL BID - senna 17.2 mg tab(s) (SENOKOT) 17.2 mg ORAL AT BEDTIME - enoxaparin 40 mg injection (LOVENOX) 40 mg SUBCUTANEOUS q 24 HR - sodium chloride 0.9 % (flush) 3-5 mL (BD POSIFLUSH) 3-5 mL INTRAVENOUS q 12 H - acetaminophen 650 mg tab(s) (TYLENOL) 650 mg ORAL q 8 H - metoprolol tartrate (short acting) 50 mg tab(s) (LOPRESSOR) 50 mg ORAL BID - sodium chloride 0.9 % (flush) 10 mL (BD POSIFLUSH) 10 mL INTRAVENOUS q 12 H - sodium chloride 0.9 % (flush) 20 mL (BD POSIFLUSH) 20 mL INTRAVENOUS PRN - oxyCODONE IR 10 mg tab(s) (ROXICODONE) 10 mg ORAL q 4 H PRN - cefepime 2 g in D5W 100 mL MB+ (MAXIPIME) 2 g INTRAVENOUS q 12 HR - vancomycin 1.25 g in D5W 250 mL (VANCOCIN) 1.25 g INTRAVENOUS q 24 HR - NaCl 0.9% iv infusion 100 mL/hr INTRAVENOUS CONTINUOUS Objective: Physical Exam: Patient Vitals for the past 24 hrs: BP Temp Temp src Pulse Resp SpO2 12/21/20 0726 116/68 36.3 ?C (97.3 ?F) Oral 63 22 96 % 12/20/20 2327 127/71 36.5 ?C (97.7 ?F) Oral 63 18 97 % 12/20/20 2109 112/61 36.5 ?C (97.7 ?F) Oral 61 17 99 % 12/20/20 1614 107/61 36.5 ?C (97.7 ?F) Oral 63 18 94 % General: Awake, alert, no distress Cardiovascular: Regular rate and rhythm, no murmur Lungs: Clear to auscultation, normal respiratory effort Abdomen: Soft, nontender, nondistended Extremities: No rash, right knee wrapped post-op not removed Labs: WBC Date Value Ref Range Status 12/23/2020 5.70 3.70 - 11.00 k/uL Final Creatinine Date Value Ref Range Status 12/24/2020 0.82 0.58 - 0.96 mg/dL Final 12/23/2020 0.80 0.58 - 0.96 mg/dL Final 12/22/2020 0.81 0.58 - 0.96 mg/dL Final 12/21/2020 0.64 0.58 - 0.96 mg/dL Final 12/19 COVID negative 12/19 urine culture + Pseudomonas 12/19 right knee operative cultures negative to date ? Imagin/21 right knee post-op XR: IMPRESSION: Postoperative changes with satisfactory position of the knee arthroplasty. ?Postop air, fluid and swelling noted ? Assessment: 1. 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 History right knee PJI with MSSA in October 2019 - completed ~5 weeks cefazolin at that time, then was prescribed suppressive doxycycline. Did not take suppression 3. UTI due to Pseudomonas ? Plan: 1. Continue vancomycin 1250mg IV q24 hours for 6 weeks through 01/30/21 2. Continue cefepime 2g q12 hours for 6 weeks through 01/30/21 3. Needs CBC w/ diff, CMP, vancomycin trough, ESR, CRP every Thursday faxed to Sanjana Tarango at [phone] [place] for d/c from ID standpoint Sanjana Tarango MD [facility] Contact#: [phone] [facility] 12-24-2020 Note HNO ID: [id number] Author: Alexandria Reddy MD Service: Hospital Medicine Author Type: Physician Type: Progress Notes Filed: 12/24/2020 2:59 PM Note Text: DEPARTMENT OF HOSPITAL MEDICINE PROGRESS NOTE SERVICE DATE: 12/24/2020 SERVICE TIME: 2:55 PM Hospital Medicine/Primary Attending: Alexandria Reddy MD NIGHT AND WEEKEND COVERAGE: Patient admitted to [facility]. Page [phone] between 7 am and 5 pm for patient issues; from 5 p to 7 am, page the night hospitalist at pager [phone] Subjective INTERVAL HPI: Complaining that the nurses do not bring her medications (pain medications) on tme. I informed her that her medications were scheduled to be given every 4 hours.She claims that they work but wants them more often. We discussed that this is a narcotic medication and we will not be titrating this already high dose. Current Facility-Administered Medications Medication Dose Route Frequency - diazePAM 5 mg tab(s) (VALIUM) 5 mg ORAL q 12 H PRN - valproic acid 250 mg CUP (DEPAKENE) 250 mg ORAL TID - ondansetron 4 mg tab(s) (ZOFRAN) 4 mg ORAL q 8 H PRN - QUEtiapine 50 mg tablet (SEROquel) 50 mg ORAL AT BEDTIME - polyethylene glycol 3350 17 g packet (MIRALAX, GLYCOLAX) 17 g ORAL DAILY - pantoprazole DR 40 mg tab(s) (PROTONIX) 40 mg ORAL DAILY - NaCl 0.9% iv flush bag 20 mL INTRAVENOUS PRN - sodium chloride 0.9 % (flush) 3-5 mL (BD POSIFLUSH) 3-5 mL INTRAVENOUS q 12 H - nicotine 21 mg/24 hr 1 Patch (NICODERM) 1 Patch TRANSDERMAL DAILY - nicotine -- REMOVE patch OTHER DAILY - nicotine - verify patch OTHER q 8 H - PARoxetine 40 mg tab(s) (PAXIL) 40 mg ORAL DAILY - potassium chloride ER 20 mEq tab(s) (K-DUR, KLOR-CON) 20 mEq ORAL BID - pregabalin 100 mg cap(s) (LYRICA) 100 mg ORAL BID - wnaxxap-rtkqiiggm-fxmykgs D3 500 mg(1,250mg) -200 unit 2 tablet 2 tablet ORAL BID - senna 17.2 mg tab(s) (SENOKOT) 17.2 mg ORAL AT BEDTIME - enoxaparin 40 mg injection (LOVENOX) 40 mg SUBCUTANEOUS q 24 HR - sodium chloride 0.9 % (flush) 3-5 mL (BD POSIFLUSH) 3-5 mL INTRAVENOUS q 12 H - acetaminophen 650 mg tab(s) (TYLENOL) 650 mg ORAL q 8 H - metoprolol tartrate (short acting) 50 mg tab(s) (LOPRESSOR) 50 mg ORAL BID - sodium chloride 0.9 % (flush) 10 mL (BD POSIFLUSH) 10 mL INTRAVENOUS q 12 H - sodium chloride 0.9 % (flush) 20 mL (BD POSIFLUSH) 20 mL INTRAVENOUS PRN - oxyCODONE IR 10 mg tab(s) (ROXICODONE) 10 mg ORAL q 4 H PRN - cefepime 2 g in D5W 100 mL MB+ (MAXIPIME) 2 g INTRAVENOUS q 12 HR Objective PHYSICAL EXAMINATION BP 117/79 Pulse 64 Temp 36.7 ?C (98.1 ?F) (Oral) Resp 14 Ht 180.3 cm (5' 11) Wt 105.2 kg (232 lb) LMP (LMP Unknown) SpO2 94% BMI 32.36 kg/m? General appearance: well appearing, in no acute distress Neck: supple Lungs: Lungs clear to auscultation, No wheezing or rhonchi Heart: RRR Abdomen: Abdomen soft, non-tender. Extremities: Extremities (+) edema bilaterally Lines, Drains, and Airways Line Central Line Single Lumen 12/21/20 1200 Peripherally Inserted (PICC) Left Arm Through Introducer 4.0 Trinidadian 3 days Drain External Collection Device 12/21/20 0930 3 days DATA: Diagnostic tests reviewed for today's visit: Most recent labs Most recent imaging Assessment/Plan Problem List Joint infection (HCC) POA: Yes Acute deep vein thrombosis (DVT) of right lower extremity (HCC) POA: Yes MS (multiple sclerosis) (HCC) POA: Yes Essential hypertension POA: Yes Current smoker POA: Yes Chronic pain of right knee POA: Yes Seizure (HCC) POA: Yes Dysuria POA: . HOSPITAL COURSE: 65 Y F with hx of acute PE, DVT, on eliquis presenting with dysuria and acute right knee pain, treated for UTI and septic arthritis. ? UTI UA dirty; culture pos for pseudomonas - patient unable to use quinolone due to quetiapine use - c/w zosyn per ID recs. ? Septic arthritis of R-knee S/P joint aspirate, fluid analysis suspicious for septic joint; s/p wash Ortho consulted treated with vanc and zosyn; operative cultures w NTD Pain meds PRN. No changes per patient request. ? Hx of DVT and PE Dx in 2018; on eliquis. stable s/p R-knee wash - Ortho managing Anticoagulation post surgery; plan to resume Eliquis after POD5 (today POD5) - continue lonvenox for now, resume eliquis tomorrow. ? MS (multiple sclerosis) (HCC) POA: Yes WC bound Urine and fecal incontinence LE parasthesia ? Essential hypertension POA: Yes Controlled - Continue Metoprolol; hold HCTZ? ? Current smoker POA: Yes - Nicotine patches ? Seizure (HCC) POA: Yes - Continue Depakote ? Depressoin/Anxiety - c/w paxil and seroquil Medication and Non-Pharmacologic VTE Prophylaxis/Anticoagulants Anticoagulant AND Antiplatelet Medications (From admission, onward) Start Dose Route Frequency Last Action Ordered Stop 12/20/20 0900 enoxaparin 40 mg injection (LOVENOX) (Surgical Risk Categories) 40 mg SUBCUTANEOUS EVERY 24 HOURS Given, 12/24 0906 12/19/20 (more content not included)... [facility] 12-24-2020 Note HNO ID: [id number] Author: Sanjana Tarango MD Service: Infectious Disease Author Type: Physician Type: Progress Notes Filed: 12/24/2020 1:46 PM Note Text: INFECTIOUS DISEASE PROGRESS NOTE ID service following patient for PJI right knee Subjective: Afebrile Does not want to talk this AM ROS: Unable to obtain, says she doesn't want to talk Current Facility-Administered Medications Medication Dose Route Frequency - diazePAM 5 mg tab(s) (VALIUM) 5 mg ORAL q 12 H PRN - valproic acid 250 mg CUP (DEPAKENE) 250 mg ORAL TID - ondansetron 4 mg tab(s) (ZOFRAN) 4 mg ORAL q 8 H PRN - QUEtiapine 50 mg tablet (SEROquel) 50 mg ORAL AT BEDTIME - polyethylene glycol 3350 17 g packet (MIRALAX, GLYCOLAX) 17 g ORAL DAILY - pantoprazole DR 40 mg tab(s) (PROTONIX) 40 mg ORAL DAILY - NaCl 0.9% iv flush bag 20 mL INTRAVENOUS PRN - sodium chloride 0.9 % (flush) 3-5 mL (BD POSIFLUSH) 3-5 mL INTRAVENOUS q 12 H - nicotine 21 mg/24 hr 1 Patch (NICODERM) 1 Patch TRANSDERMAL DAILY - nicotine -- REMOVE patch OTHER DAILY - nicotine - verify patch OTHER q 8 H - PARoxetine 40 mg tab(s) (PAXIL) 40 mg ORAL DAILY - potassium chloride ER 20 mEq tab(s) (K-DUR, KLOR-CON) 20 mEq ORAL BID - pregabalin 100 mg cap(s) (LYRICA) 100 mg ORAL BID - blrkmgu-mxcdttlcl-vmockuh D3 500 mg(1,250mg) -200 unit 2 tablet 2 tablet ORAL BID - senna 17.2 mg tab(s) (SENOKOT) 17.2 mg ORAL AT BEDTIME - enoxaparin 40 mg injection (LOVENOX) 40 mg SUBCUTANEOUS q 24 HR - sodium chloride 0.9 % (flush) 3-5 mL (BD POSIFLUSH) 3-5 mL INTRAVENOUS q 12 H - acetaminophen 650 mg tab(s) (TYLENOL) 650 mg ORAL q 8 H - metoprolol tartrate (short acting) 50 mg tab(s) (LOPRESSOR) 50 mg ORAL BID - sodium chloride 0.9 % (flush) 10 mL (BD POSIFLUSH) 10 mL INTRAVENOUS q 12 H - sodium chloride 0.9 % (flush) 20 mL (BD POSIFLUSH) 20 mL INTRAVENOUS PRN - oxyCODONE IR 10 mg tab(s) (ROXICODONE) 10 mg ORAL q 4 H PRN - cefepime 2 g in D5W 100 mL MB+ (MAXIPIME) 2 g INTRAVENOUS q 12 HR Objective: Physical Exam: Patient Vitals for the past 24 hrs: BP Temp Temp src Pulse Resp SpO2 12/21/20 0726 116/68 36.3 ?C (97.3 ?F) Oral 63 22 96 % 12/20/20 2327 127/71 36.5 ?C (97.7 ?F) Oral 63 18 97 % 12/20/20 2109 112/61 36.5 ?C (97.7 ?F) Oral 61 17 99 % 12/20/20 1614 107/61 36.5 ?C (97.7 ?F) Oral 63 18 94 % General: Awake, alert, no distress Cardiovascular: Regular rate and rhythm, no murmur Lungs: Clear to auscultation, normal respiratory effort Abdomen: Soft, nontender, nondistended Extremities: No rash, right knee wrapped post-op not removed Labs: WBC Date Value Ref Range Status 12/23/2020 5.70 3.70 - 11.00 k/uL Final Creatinine Date Value Ref Range Status 12/24/2020 0.82 0.58 - 0.96 mg/dL Final 12/23/2020 0.80 0.58 - 0.96 mg/dL Final 12/22/2020 0.81 0.58 - 0.96 mg/dL Final 12/21/2020 0.64 0.58 - 0.96 mg/dL Final 12/19 COVID negative 12/19 urine culture + Pseudomonas 12/19 right knee operative cultures negative to date ? Imagin/21 right knee post-op XR: IMPRESSION: Postoperative changes with satisfactory position of the knee arthroplasty. ?Postop air, fluid and swelling noted ? Assessment: 1. 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 History right knee PJI with MSSA in October 2019 - completed ~5 weeks cefazolin at that time, then was prescribed suppressive doxycycline. Did not take suppression 3. UTI due to Pseudomonas ? Plan: 1. Continue vancomycin. Level high today. Hold doses today. Random level tomorrow AM 2. Change zosyn to cefepime 3. Anticipate final antibiotic recs tomorrow AM Sanjana Tarango MD [facility] Contact#: [phone] [facility] 12-23-2020 Note HNO ID: [id number] Author: Alexandria Reddy MD Service: Hospital Medicine Author Type: Physician Type: Progress Notes Filed: 12/23/2020 2:21 PM Note Text: DEPARTMENT OF HOSPITAL MEDICINE PROGRESS NOTE SERVICE DATE: 12/23/2020 SERVICE TIME: 2:20 PM Hospital Medicine/Primary Attending: Alexandria Reddy MD NIGHT AND WEEKEND COVERAGE: Patient admitted to [facility]. Page [phone] between 7 am and 5 pm for patient issues; from 5 p to 7 am, page the night hospitalist at pager [phone] Subjective INTERVAL HPI: Patient continues to complain of pain, similar to previous. Afebrile overnight requiring oxycodone on schedule. Current Facility-Administered Medications Medication Dose Route Frequency - diazePAM 5 mg tab(s) (VALIUM) 5 mg ORAL q 12 H PRN - valproic acid 250 mg CUP (DEPAKENE) 250 mg ORAL TID - ondansetron 4 mg tab(s) (ZOFRAN) 4 mg ORAL q 8 H PRN - QUEtiapine 50 mg tablet (SEROquel) 50 mg ORAL AT BEDTIME - polyethylene glycol 3350 17 g packet (MIRALAX, GLYCOLAX) 17 g ORAL DAILY - pantoprazole DR 40 mg tab(s) (PROTONIX) 40 mg ORAL DAILY - NaCl 0.9% iv flush bag 20 mL INTRAVENOUS PRN - sodium chloride 0.9 % (flush) 3-5 mL (BD POSIFLUSH) 3-5 mL INTRAVENOUS q 12 H - nicotine 21 mg/24 hr 1 Patch (NICODERM) 1 Patch TRANSDERMAL DAILY - nicotine -- REMOVE patch OTHER DAILY - nicotine - verify patch OTHER q 8 H - PARoxetine 40 mg tab(s) (PAXIL) 40 mg ORAL DAILY - potassium chloride ER 20 mEq tab(s) (K-DUR, KLOR-CON) 20 mEq ORAL BID - pregabalin 100 mg cap(s) (LYRICA) 100 mg ORAL BID - rpnqaya-yjddcfljp-oxdqexz D3 500 mg(1,250mg) -200 unit 2 tablet 2 tablet ORAL BID - senna 17.2 mg tab(s) (SENOKOT) 17.2 mg ORAL AT BEDTIME - enoxaparin 40 mg injection (LOVENOX) 40 mg SUBCUTANEOUS q 24 HR - sodium chloride 0.9 % (flush) 3-5 mL (BD POSIFLUSH) 3-5 mL INTRAVENOUS q 12 H - piperacillin-tazobactam iv piggyback 3.375 g in dextrose (iso-osmotic) 50 mL (ZOSYN) 3.375 g INTRAVENOUS q 6 H - acetaminophen 650 mg tab(s) (TYLENOL) 650 mg ORAL q 8 H - metoprolol tartrate (short acting) 50 mg tab(s) (LOPRESSOR) 50 mg ORAL BID - sodium chloride 0.9 % (flush) 10 mL (BD POSIFLUSH) 10 mL INTRAVENOUS q 12 H - sodium chloride 0.9 % (flush) 20 mL (BD POSIFLUSH) 20 mL INTRAVENOUS PRN - oxyCODONE IR 10 mg tab(s) (ROXICODONE) 10 mg ORAL q 4 H PRN - vancomycin 1.25 g in D5W 250 mL (VANCOCIN) 1.25 g INTRAVENOUS q 12 HR Objective PHYSICAL EXAMINATION BP 114/71 Pulse 67 Temp 36.3 ?C (97.3 ?F) (Oral) Resp 14 Ht 180.3 cm (5' 11) Wt 105.2 kg (232 lb) LMP (LMP Unknown) SpO2 100% BMI 32.36 kg/m? General appearance: well appearing, in no acute distress Neck: supple Lungs: Lungs clear to auscultation, No wheezing or rhonchi Heart: RRR Abdomen: Abdomen soft, non-tender. Extremities: Extremities (+) edema bilaterally Lines, Drains, and Airways Line Central Line Single Lumen 12/21/20 1200 Peripherally Inserted (PICC) Left Arm Through Introducer 4.0 Trinidadian 2 days Drain External Collection Device 12/21/20 0930 2 days DATA: Diagnostic tests reviewed for today's visit: Most recent labs Most recent imaging Assessment/Plan Problem List Joint infection (HCC) POA: Yes Acute deep vein thrombosis (DVT) of right lower extremity (HCC) POA: Yes MS (multiple sclerosis) ([facility]) POA: Yes Essential hypertension POA: Yes Current smoker POA: Yes Chronic pain of right knee POA: Yes Seizure ([facility]) POA: Yes Dysuria POA: . HOSPITAL COURSE: 65 Y F with hx of acute PE, DVT, on eliquis presenting with dysuria and acute right knee pain, treated for UTI and septic arthritis. ? UTI UA dirty; culture pos for pseudomonas - patient unable to use quinolone due to quetiapine use - c/w zosyn per ID recs. ? Septic arthritis of R-knee S/P joint aspirate, fluid analysis suspicious for septic joint; s/p wash Ortho following afebrile; no leukocytosis - c/w vanc and zosyn; awaiting culture; NTD - Pain meds PRN ? Hx of DVT and PE Dx in 2018; on eliquis. stable s/p R-knee wash - Ortho managing Anticoagulation post surgery; plan to resume Eliquis after POD5 (today POD3) - continue lonvenox for now ? MS (multiple sclerosis) ([facility]) POA: Yes WC bound Urine and fecal incontinence LE parasthesia - stable; CTM ? Essential hypertension POA: Yes Controlled - Continue Metoprolol; hold HCTZ? ? Current smoker POA: Yes - Nicotine patches ? Seizure ([facility]) POA: Yes - Continue Depakote ? Depressoin/Anxiety - c/w paxil and seroquil Medication and Non-Pharmacologic VTE Prophylaxis/Anticoagulants Anticoagulant AND Antiplatelet Medications (From admission, onward) Start Dose Route Frequency Last Action Ordered Stop 12/20/20 0900 enoxaparin 40 mg injection (LOVENOX) (Surgical Risk Categories) 40 mg SUBCUTANEOUS EVERY 24 HOURS Given, 12/23 1025 12/19/202004 -- 12/19/202014 pneumatic compression stockings ([place]) 12/19/20 0900 activity - mobilize patient (more content not included)... [facility] 12-22-2020 Note HNO ID: [id number] Author: Alexandria Reddy MD Service: Hospital Medicine Author Type: Physician Type: Progress Notes Filed: 12/22/2020 3:25 PM Note Text: DEPARTMENT OF HOSPITAL MEDICINE PROGRESS NOTE SERVICE DATE: 12/22/2020 SERVICE TIME: 3:21 PM Hospital Medicine/Primary Attending: Alexandria Reddy MD NIGHT AND WEEKEND COVERAGE: Patient admitted to [facility]. Page [phone] between 7 am and 5 pm for patient issues; from 5 p to 7 am, page the night hospitalist at pager [phone] Subjective INTERVAL HPI: Patient seem drowsy but able to communicate well Complains of right knee pain Current Facility-Administered Medications Medication Dose Route Frequency - diazePAM 5 mg tab(s) (VALIUM) 5 mg ORAL q 12 H PRN - valproic acid 250 mg CUP (DEPAKENE) 250 mg ORAL TID - ondansetron 4 mg tab(s) (ZOFRAN) 4 mg ORAL q 8 H PRN - QUEtiapine 50 mg tablet (SEROquel) 50 mg ORAL AT BEDTIME - polyethylene glycol 3350 17 g packet (MIRALAX, GLYCOLAX) 17 g ORAL DAILY - pantoprazole DR 40 mg tab(s) (PROTONIX) 40 mg ORAL DAILY - NaCl 0.9% iv flush bag 20 mL INTRAVENOUS PRN - sodium chloride 0.9 % (flush) 3-5 mL (BD POSIFLUSH) 3-5 mL INTRAVENOUS q 12 H - nicotine 21 mg/24 hr 1 Patch (NICODERM) 1 Patch TRANSDERMAL DAILY - nicotine -- REMOVE patch OTHER DAILY - nicotine - verify patch OTHER q 8 H - PARoxetine 40 mg tab(s) (PAXIL) 40 mg ORAL DAILY - potassium chloride ER 20 mEq tab(s) (K-DUR, KLOR-CON) 20 mEq ORAL BID - pregabalin 100 mg cap(s) (LYRICA) 100 mg ORAL BID - ymkggrw-opwbvtcli-lixttdy D3 500 mg(1,250mg) -200 unit 2 tablet 2 tablet ORAL BID - senna 17.2 mg tab(s) (SENOKOT) 17.2 mg ORAL AT BEDTIME - enoxaparin 40 mg injection (LOVENOX) 40 mg SUBCUTANEOUS q 24 HR - sodium chloride 0.9 % (flush) 3-5 mL (BD POSIFLUSH) 3-5 mL INTRAVENOUS q 12 H - piperacillin-tazobactam iv piggyback 3.375 g in dextrose (iso-osmotic) 50 mL (ZOSYN) 3.375 g INTRAVENOUS q 6 H - acetaminophen 650 mg tab(s) (TYLENOL) 650 mg ORAL q 8 H - metoprolol tartrate (short acting) 50 mg tab(s) (LOPRESSOR) 50 mg ORAL BID - sodium chloride 0.9 % (flush) 10 mL (BD POSIFLUSH) 10 mL INTRAVENOUS q 12 H - sodium chloride 0.9 % (flush) 20 mL (BD POSIFLUSH) 20 mL INTRAVENOUS PRN - oxyCODONE IR 10 mg tab(s) (ROXICODONE) 10 mg ORAL q 4 H PRN - vancomycin 1.25 g in D5W 250 mL (VANCOCIN) 1.25 g INTRAVENOUS q 12 HR Objective PHYSICAL EXAMINATION BP 119/62 Pulse (!) 52 Temp 36.3 ?C (97.3 ?F) (Oral) Resp 18 Ht 180.3 cm (5' 11) Wt 105.2 kg (232 lb) LMP (LMP Unknown) SpO2 94% BMI 32.36 kg/m? General appearance: well appearing, in no acute distress Neck: supple Lungs: Lungs clear to auscultation, No wheezing or rhonchi Heart: RRR Abdomen: Abdomen soft, non-tender. Extremities: Extremities (+) edema bilaterally Lines, Drains, and Airways Line Central Line Single Lumen 12/21/20 1200 Peripherally Inserted (PICC) Left Arm Through Introducer 4.0 Trinidadian 1 day Drain External Collection Device 12/21/20 0930 1 day DATA: Diagnostic tests reviewed for today's visit: Most recent labs Most recent imaging Assessment/Plan Problem List Joint infection (HCC) POA: Yes Acute deep vein thrombosis (DVT) of right lower extremity (HCC) POA: Yes MS (multiple sclerosis) ([facility]) POA: Yes Essential hypertension POA: Yes Current smoker POA: Yes Chronic pain of right knee POA: Yes Seizure (HCC) POA: Yes Dysuria POA: . HOSPITAL COURSE: 65 Y F with hx of acute PE, DVT, on eliquis presenting with dysuria and acute right knee pain, treated for UTI and septic arthritis. ? UTI UA dirty; culture pos for pseudomonas - patient unable to use quinolone due to quetiapine use - c/w zosyn per ID recs. ? Septic arthritis of R-knee S/P joint aspirate, fluid analysis suspicious for septic joint; s/p wash Ortho following afebrile; no leukocytosis - c/w vanc and zosyn; awaiting culture; NTD - Pain meds PRN ? Hx of DVT and PE Dx in 2018; on eliquis. stable s/p R-knee wash - Ortho managing Anticoagulation post surgery; plan to resume Eliquis after POD5 (today POD3) - continue lonvenox for now ? MS (multiple sclerosis) ([facility]) POA: Yes WC bound Urine and fecal incontinence LE parasthesia - stable; CTM ? Essential hypertension POA: Yes Controlled - Continue Metoprolol; hold HCTZ? ? Current smoker POA: Yes - Nicotine patches ? Seizure (HCC) POA: Yes - Continue Depakote ? Depressoin/Anxiety - c/w paxil and seroquil Medication and Non-Pharmacologic VTE Prophylaxis/Anticoagulants Anticoagulant AND Antiplatelet Medications (From admission, onward) Start Dose Route Frequency Last Action Ordered Stop 12/20/20 0900 enoxaparin 40 mg injection (LOVENOX) (Surgical Risk Categories) 40 mg SUBCUTANEOUS EVERY 24 HOURS Given, 12/22 93212/19/202004 -- 12/19/202014 pneumatic compression stockings ([place]) 12/19/20 0900 activity - mobilize patient ([place]) VTE Prophylaxis: VTE prop (more content not included)... [facility] 12-22-2020 Note HNO ID: [id number] Author: Jasen Ewing DO Service: Orthopaedic Surgery Author Type: Resident Type: Progress Notes Filed: 12/22/2020 7:40 AM Note Text: ORTHOPEDIC POSTOP PROGRESS NOTE SERVICE DATE: 12/22/2020 SERVICE TIME: 7:38 AM Subjective Patient states that they are comfortable Well Controlled knee(s) pain. Mild incisional pain. Denies fevers, chills, chest pain, SOB Objective VITAL SIGNS: BP 100/55 Pulse 67 Temp 36.9 ?C (98.4 ?F) (Oral) Resp 18 Ht 180.3 cm (5' 11) Wt 105.2 kg (232 lb) LMP (LMP Unknown) SpO2 94% BMI 32.36 kg/m? INTAKE AND OUTPUT: Intake/Output Summary (Last 24 hours) at 12/22/2020 0738 Last data filed at 12/22/2020 0600 Gross per 24 hour Intake 1150 ml Output 3200 ml Net -2050 ml PHYSICAL EXAMINATION: Right Lower Extremity: aquacel R knee c/d/i with KI applied. Compartments soft and compressible Mild, appropriate TTP about knee Motor intact to DF/PF/EHL Sensory intact to light touch L3-S1. PT/DP pulses palpable. Problem Review and Assessment: Patient monitored, no new events overnight. LABS: Recent Labs 12/21/20 0430 HB 10.6* HCT 33.9* POST OPERATIVE COMPLICATIONS: Complicated by: uneventful/none DATA: Diagnostic tests reviewed for today's visit: Most recent labs and imaging results. Assessment/Plan S/P Procedure(s) (LRB): REVISION JOINT TOTAL KNEE ONE COMPONENT (Right) on 12/19/2020 POSTOP PLAN: Weight Bearing : WBAT RLE ROM: KI Dressing: aquacel R knee to be removed POD#7-10, clark removed Drains: none Musa: d/c POD#1, nursing driven protocol DVT prophylaxis: Lovenox 40mg daily bridge to eliquis POD#5 , IPDs Pain control: multimodal, per primary Antibiotics: vanc/zosyn PT/OT: recommend d/c SNF transition to LTC Medical management per primary, appreciated ID consulted, recs appreciated PICC ordered UTI - UA concerning for infection, on vanc/zosyn Intraop and aspiration cultures NGTD Case Management for discharge planning: needs facility and updated COVID POD#3, ortho will sign off Please contact the orthopedic resident well control instructor with any questions or concerns. ACTIVE PROBLEM LIST Osteoarthritis of Right Knee Ms (Multiple Sclerosis) (Hcc) Essential Hypertension Lumbar Disc Herniation Current Smoker Knee Pain Primary Osteoarthritis of Left Knee Gastroesophageal Reflux Disease Without Esophagitis Headache S/P Total Knee Arthroplasty Extensor Tendon Disruption Knee Pain, Right S/P Revision of Total Knee, Right Rupture of Quadriceps Muscle Acute Deep Vein Thrombosis (Dvt) of Right Lower Extremity (Hcc) Acute Respiratory Failure With Hypoxia (Hcc) Chronic Pain Syndrome Chronic Prescription Benzodiazepine Use Chronic Prescription Opiate Use Repeat Prescription Issue Mechanical Complication of Internal Orthopedic Device, Implant Or Graft (Hcc) Failed Total Knee Arthroplasty (Hcc) Delirium Chronic Pain of Right Knee Hypotension History of Pulmonary Embolism Septic Arthritis ([facility]) Urinary Tract Infection Hypoxia Seizure ([facility]) Obesity, Class I, Bmi 30-34.9 Infection of Prosthetic Right Knee Joint ([facility]) Joint Infection ([facility]) Dysuria Jasen Ewing DO 12/22/2020 7:38 AM Orthopedic Surgery Resident [id number] [facility] 12-22-2020 Note HNO ID: [id number] Author: Interface Note Service: ? Author Type: ? Type: Progress Notes Filed: 12/22/2020 2:51 AM Note Text: [facility] Scheduled Downtime: 12/22/2020 1:01:00 AM to 12/22/2020 2:33:00 AM [facility] 12-21-2020 Note HNO ID: [id number] Author: Maricel Levy MD Service: Hospital Medicine Author Type: Physician Type: Progress Notes Filed: 12/21/2020 4:16 PM Note Text: DEPARTMENT OF HOSPITAL MEDICINE PROGRESS NOTE SERVICE DATE: December 21, 2020 SERVICE TIME: 10:42 AM Hospital Medicine/Primary Attending: Maricel Levy MD NIGHT AND WEEKEND COVERAGE: NIGHT AND WEEKEND COVERAGE: [facility] COVERAGE: Patient admitted to Hospitalist Service From 699 - [phone], please contact pager listed in Epic for patient issues. From 1630 - 07, please contact the Night Hospitalist on pager [phone] for patient issues. Subjective INTERVAL HPI: No overnight events. S/p arthrocentesis and wash out on 12/19. Continued to have severe pain in R-joint, asking to escalate pain meds to oxycodone 10 mg instead of 5 mg PRN. Agreed. No new complaints. MEDICATIONS: Reviewed. Objective PHYSICAL EXAM: BP 105/64 Pulse 78 Temp (Src) 97.7 (Oral) Resp 18 Ht 5' 11 (1.80m) Wt 232 lb (105.2kg) SpO2 98% BMI 32.37 kg/(m2). O2 Therapy: Nasal Cannula, Liters: 2.00 GENERAL: Alert, no distress, cooperative SKIN: Skin color, texture, turgor normal. No visible rashes. HEAD/SINUSES: No significant findings NECK: Supple, No jugulovenous distention LUNGS: Lungs clear to auscultation bilaterally, No wheezing, rales, or rhonchi CARDIAC: Normal S1 and S2; no rubs, murmurs, or gallops ABDOMEN: BS normal, Abdomen soft, non-tender, non-distended EXTREMITIES: No deformities or edema; R-knee w/ KI applied NEURO: Awake, alert and oriented Lines, Drains, and Airways Line Peripheral 12/18/20 2320 Admission to Hospital Short Left Wrist 22 Gauge 2 days Central Line Single Lumen 12/21/20 1200 Peripherally Inserted (PICC) Left Arm Through Introducer 4.0 Trinidadian <1 day Drain External Collection Device 12/21/20 0930 <1 day DATA: Diagnostic tests reviewed for today's visit: All relevant tests reviewed. Assessment/Plan 65 Y F with hx of acute PE, DVT, on eliquis presenting with dysuria and acute right knee pain, treated for UTI and septic arthritis. UTI UA dirty; culture pos for pseudomonas; sensitivity pending - c/w zosyn; await UCx to final Septic arthritis of R-knee S/P joint aspirate, fluid analysis suspicious for septic joint; s/p wash Ortho following afebrile; no leukocytosis - c/w vanc and zosyn; awaiting culture; NTD - Pain meds PRN Hx of DVT and PE Dx in 2018; on eliquis. stable s/p R-knee wash - Ortho managing Anticoagulation post surgery; plan to resume Eliquis after POD5 (today POD2) MS (multiple sclerosis) ([facility]) POA: Yes WC bound Urine and fecal incontinence LE parasthesia - stable; CTM Essential hypertension POA: Yes Controlled - Continue Metoprolol; hold HCTZ Current smoker POA: Yes - Nicotine patches Seizure (HCC) POA: Yes - Continue Depakote Depressoin/Anxiety - c/w paxil and seroquil Medication and Non-Pharmacologic VTE Prophylaxis/Anticoagulants Anticoagulant AND Antiplatelet Medications (From admission, onward) Comment Start Dose Route Frequency Last Action Ordered Stop 12/20/20 0900 enoxaparin 40 mg injection (LOVENOX) (Surgical Risk Categories) 40 mg SUBCUTANEOUS EVERY 24 HOURS Given, 12/21 1019 12/19/202004 -- VTE prophylaxis appropriate. Disposition: To be determined Plan of care discussed with: Patient, RN, patient and case management SIGNATURE: Maricel Levy MD PATIENT NAME: Charlie Nguyen DATE: December 21, 2020 TIME: 4:16 PM PAGER/CONTACT #: [phone] [facility] 12-21-2020 Note HNO ID: [id number] Author: Chaitanya Champagne RN Service: PICC Team Author Type: Registered Nurse Type: Procedures Filed: 12/21/2020 12:55 PM Note Text: PICC NURSE INSERTION NOTE DATE OF PROCEDURE: December 21, 2020 TIME OF PROCEDURE: 1120 ORDERING PHYSICIAN: Dr. Sanjana Tarango INFORMED CONSENT: Obtained per hospital policy. INDICATION FOR LINE PLACEMENT: COPAT CONDITION OF LINE PLACEMENT: Sterile PRIMARY PROCEDURALIST: Chaitanya Champagne R.N. [place] - [place]GSHEAD FILLER: Kimberly Headley R.N. PRE-PROCEDURE REVIEW ALLERGIES Allergen Reactions - Nsaids (Non-Steroid* GI Upset - Gabapentin GI Upset - Macrobid [Nitrofura* Hives - Tramadol Contraindication-Medical Surgical Drug interaction with amitriptyline - told not to take due to increased seizure risk - [place] [Hydrocodone-* GI Upset Didn't do anything for her pain Known History of Upper Venous Thrombosis: No Known History of Permanent Pacemaker or Automated Implanted Cardiac Device: No Previous Breast Surgery of Lymph Node Dissection: No eGFR-All Other Races Date/Time Value Ref Range Status 12/21/2020 04:30 AM >60 . Final Comment: eGFR (Estimated GFR) Units of measure: mL/min/1.73 meters squared eGFR is derived from the reexpressed MDRD Study equation using the following parameters: serum creatinine, age, gender and race. The creatinine assay has been calibrated to be traceable to IDMS. An eGFR <60 mL/min/1.73m2 for >3 months is consistent with chronic kidney disease. Refer to KDOQI guidelines for clinical interpretation. In patients with unstable renal function, e.g. those with acute kidney injury, the eGFR may not accurately reflect actual GFR. eGFR- Date/Time Value Ref Range Status 12/21/2020 04:30 AM >60 Final eGFR Date/Time Value Ref Range Status 12/05/2019 12:09 PM >60 >60mL/min/1.73m2 Final Comment: If the patient is , multiply the result by 1.210. History of Renal Disease: No Ultrasound Assessment Complete: Yes, catheter to occupy 12% of the left brachial PROCEDURE NARRATIVE SAFE PRACTICE Hand Hygiene per Hospital Policy: Yes Skin Preparation Unit Dose Applicator Used: Chloraprep (CHG + alcohol), allowed to dry. Procedure Surface Cleansed with Antimicrobial Wipes: Yes Barriers Used by Proceduralist and all Assisting Personnel: Yes UNIVERSAL PROTOCOL / SAFETY CHECKLIST Procedure to be Performed: PICC INSERTION Sign In:1120 A Moment of CARE was completed. Personnel directly involved with the procedure wore the appropriate PPE (Personal Protective Equipment). Special equipment: PICC Insertion Kit Patient/Surrogate Stated/Verified: PATIENT VERIFIED(optional for EMERGENT procedures): Patient name, Date of , Relevant allergies, The intended procedure and PICC Insertion Time Out Communication: 1130 Intended patient and procedure match the source documents. Consent documented and matches the intended procedure. Relevant labs, photos, and/or imaging studies have been reviewed. Correct side/site marked and visible. Medications required for procedure verified. No fire risk assessment and interventions applicable. Sign Out: 1210 SIGN OUT (optional for EMERGENT procedures): No specimen collected. All instruments, equipment, possible retained foreign bodies accounted for. Post-procedure follow-up management communicated and Plan of Care Visit completed when applicable. Chaitanya Champagne RN CATHETER PLACEMENT Brand: [employer] Lot: [id number] Number of Lumens: 1 Type of PICC: Power Injectable PICC Lumen Size: 4 Trinidadian PLACEMENT TECHNIQUE Lidocaine: Yes, Lidocaine 1% Volume 2 mL Subcutaneous Modified Seldinger Technique Used to Place Line via the Left Brachial Ultrasound Guidance: Yes Number of Attempts at Insertion: 1 Ensured control of guidewire during all aspects of the procedure: Yes Accounted for entire guidewire upon removal: Yes Internal Length: 45 cm External Length: 0 cm Trim Length: 45 cm Mid-Arm Circumference: 34 centimeters Post Insertion Pain Level Related to Procedure: 0 Action Taken to Address Pain: None needed Verified Placement: Blood return and flushes with ease and Tip location system or device indicates the tip is located in the SVC/CAJ. Line was Flushed with 20 cc normal saline Line Secured with: Securement device Sterile Dressing Applied and Dated: Yes Sterile Caps on all Ports Prior to Leaving Procedure Area: Yes, Disinfection caps applied SPECIMENS: None COMPLICATIONS: None Patient Education Materials: Given to patient, Report provided to Ali bedside nurse. [place] limb alert applied [facility] Central Line Insertion checklist, attached to the Central Line-Associated Bloodstream Infection Prevention Policy, was utilized during this procedure. QUESTIONS or PROBLEMS: Vocera radiology PICC Nurse SIGNATURE: Chaitanya Champagne RN PATIENT NAME: Charlie Nguyen DATE: December 21, 2020 TIME: 12:47 PM PA (more content not included)... [facility] 12-21-2020 Note HNO ID: [id number] Author: Sandra Cruz RN Service: Care Management Author Type: Registered Nurse Type: Care Mgt Progress Note Filed: 12/21/2020 10:58 AM Note Text: CARE MANAGEMENT PROGRESS NOTE SERVICE DATE: 12/21/2020 SERVICE TIME: 10:50 AM LOS: 2 days Needs Prior to Discharge: Discharge Transportation Pt with right knee prosthetic joint infections, f/p IANDD. ID note indicates pt will require PICC line placement, and anticipate final ID recs Thursday. Plan to return to [facility] on dc, updated notes sent to facility. Will require updated COVID prior to discharge. SIGNATURE: Sandra Cruz RN PATIENT NAME: Charlie Nguyen DATE: December 21, 2020 TIME: 10:50 AM PAGER/CONTACT #: [phone] [facility] 12-21-2020 Note HNO ID: [id number] Author: Jasen Ewing DO Service: Orthopaedic Surgery Author Type: Resident Type: Progress Notes Filed: 12/21/2020 9:27 AM Note Text: ORTHOPEDIC POSTOP PROGRESS NOTE SERVICE DATE: 12/21/2020 SERVICE TIME: 9:25 AM Subjective Patient states that they are comfortable Well Controlled knee(s) pain. Moderate incisional pain. Denies fevers, chills, chest pain, SOB Objective VITAL SIGNS: BP 116/68 Pulse 63 Temp 36.3 ?C (97.3 ?F) (Oral) Resp 22 Ht 180.3 cm (5' 11) Wt 105.2 kg (232 lb) LMP (LMP Unknown) SpO2 96% BMI 32.36 kg/m? INTAKE AND OUTPUT: Intake/Output Summary (Last 24 hours) at 12/21/2020 0925 Last data filed at 12/20/2020 2200 Gross per 24 hour Intake ? Output 1100 ml Net -1100 ml PHYSICAL EXAMINATION: Right Lower Extremity: aquacel R knee c/d/i with KI applied. Compartments soft and compressible Mild, appropriate TTP about knee Motor intact to DF/PF/EHL Sensory intact to light touch L3-S1. PT/DP pulses palpable. Problem Review and Assessment: Patient monitored, no new events overnight. LABS: Recent Labs 12/21/20 0430 12/19/20 0638 HB 10.6* 12.9 HCT 33.9* 40.6 POST OPERATIVE COMPLICATIONS: Complicated by: uneventful/none DATA: Diagnostic tests reviewed for today's visit: Most recent labs and imaging results. Assessment/Plan S/P Procedure(s) (LRB): REVISION JOINT TOTAL KNEE ONE COMPONENT (Right) on 12/19/2020 POSTOP PLAN: Weight Bearing : WBAT RLE ROM: KI Dressing: aquacel R knee to be removed POD#7-10, clark removed Drains: none Musa: d/c POD#1, nursing driven protocol DVT prophylaxis: Lovenox 40mg daily bridge to eliquis POD#5 , IPDs Pain control: multimodal, per primary Antibiotics: vanc/zosyn PT/OT: recommend d/c SNF transition to LTC Medical management per primary, appreciated ID consulted, recs appreciated Anticipate PICC UTI - UA concerning for infection, on vanc/zosyn Intraop and aspiration cultures NGTD Case Management for discharge planning: needs facility Please contact the orthopedic resident well control instructor with any questions or concerns. ACTIVE PROBLEM LIST Osteoarthritis of Right Knee Ms (Multiple Sclerosis) (Hcc) Essential Hypertension Lumbar Disc Herniation Current Smoker Knee Pain Primary Osteoarthritis of Left Knee Gastroesophageal Reflux Disease Without Esophagitis Headache S/P Total Knee Arthroplasty Extensor Tendon Disruption Knee Pain, Right S/P Revision of Total Knee, Right Rupture of Quadriceps Muscle Acute Deep Vein Thrombosis (Dvt) of Right Lower Extremity (Hcc) Acute Respiratory Failure With Hypoxia (Hcc) Chronic Pain Syndrome Chronic Prescription Benzodiazepine Use Chronic Prescription Opiate Use Repeat Prescription Issue Mechanical Complication of Internal Orthopedic Device, Implant Or Graft (Hcc) Failed Total Knee Arthroplasty (Hcc) Delirium Chronic Pain of Right Knee Hypotension History of Pulmonary Embolism Septic Arthritis (Hcc) Urinary Tract Infection Hypoxia Seizure (Hcc) Obesity, Class I, Bmi 30-34.9 Infection of Prosthetic Right Knee Joint (Hcc) Joint Infection (Hcc) Dysuria Jasen Ewing DO 12/21/2020 9:25 AM Orthopedic Surgery Resident [id number] [facility] 12-21-2020 Note HNO ID: [id number] Author: Sanjana Tarango MD Service: Infectious Disease Author Type: Physician Type: Progress Notes Filed: 12/21/2020 9:00 AM Note Text: INFECTIOUS DISEASE PROGRESS NOTE ID service following patient for PJI right knee Subjective: Afebrile No new complaints ROS: Denies cough, chest pain, shortness of breath, nasal congestion, headache, sore throat, abdominal pain, diarrhea Current Facility-Administered Medications Medication Dose Route Frequency - diazePAM 5 mg tab(s) (VALIUM) 5 mg ORAL q 12 H PRN - valproic acid 250 mg CUP (DEPAKENE) 250 mg ORAL TID - ondansetron 4 mg tab(s) (ZOFRAN) 4 mg ORAL q 8 H PRN - QUEtiapine 50 mg tablet (SEROquel) 50 mg ORAL AT BEDTIME - pramoxine-hydrocortisone 1-1 % 1 Applicator (PROCTOFOAM-HC) 1 Applicator RECTAL BID - polyethylene glycol 3350 17 g packet (MIRALAX, GLYCOLAX) 17 g ORAL DAILY - pantoprazole DR 40 mg tab(s) (PROTONIX) 40 mg ORAL DAILY - diclofenac 1 % 4 g topical gel (VOLTAREN) 4 g TOPICAL QID - NaCl 0.9% iv flush bag 20 mL INTRAVENOUS PRN - sodium chloride 0.9 % (flush) 3-5 mL (BD POSIFLUSH) 3-5 mL INTRAVENOUS q 12 H - nicotine 21 mg/24 hr 1 Patch (NICODERM) 1 Patch TRANSDERMAL DAILY - nicotine -- REMOVE patch OTHER DAILY - nicotine - verify patch OTHER q 8 H - PARoxetine 40 mg tab(s) (PAXIL) 40 mg ORAL DAILY - potassium chloride ER 20 mEq tab(s) (K-DUR, KLOR-CON) 20 mEq ORAL BID - pregabalin 100 mg cap(s) (LYRICA) 100 mg ORAL BID - phpuewe-ymfokcvrp-dvhxvml D3 500 mg(1,250mg) -200 unit 2 tablet 2 tablet ORAL BID - senna 17.2 mg tab(s) (SENOKOT) 17.2 mg ORAL AT BEDTIME - enoxaparin 40 mg injection (LOVENOX) 40 mg SUBCUTANEOUS q 24 HR - sodium chloride 0.9 % (flush) 3-5 mL (BD POSIFLUSH) 3-5 mL INTRAVENOUS q 12 H - piperacillin-tazobactam iv piggyback 3.375 g in dextrose (iso-osmotic) 50 mL (ZOSYN) 3.375 g INTRAVENOUS q 6 H - vancomycin dosing and monitoring per pharmacy OTHER As Directed - vancomycin 1.5 g in D5W 250 mL (VANCOCIN) 1.5 g INTRAVENOUS q 12 HR - acetaminophen 650 mg tab(s) (TYLENOL) 650 mg ORAL q 8 H - metoprolol tartrate (short acting) 50 mg tab(s) (LOPRESSOR) 50 mg ORAL BID - oxyCODONE IR 5 mg tab(s) (ROXICODONE) 5 mg ORAL q 4 H PRN Objective: Physical Exam: Patient Vitals for the past 24 hrs: BP Temp Temp src Pulse Resp SpO2 12/21/20 0726 116/68 36.3 ?C (97.3 ?F) Oral 63 22 96 % 12/20/20 2327 127/71 36.5 ?C (97.7 ?F) Oral 63 18 97 % 12/20/20 2109 112/61 36.5 ?C (97.7 ?F) Oral 61 17 99 % 12/20/20 1614 107/61 36.5 ?C (97.7 ?F) Oral 63 18 94 % General: Awake, alert, no distress Cardiovascular: Regular rate and rhythm, no murmur Lungs: Clear to auscultation, normal respiratory effort Abdomen: Soft, nontender, nondistended Extremities: No rash, right knee wrapped post-op not removed Labs: WBC Date Value Ref Range Status 12/21/2020 9.04 3.70 - 11.00 k/uL Final Creatinine Date Value Ref Range Status 12/21/2020 0.64 0.58 - 0.96 mg/dL Final 12/19/2020 0.81 0.58 - 0.96 mg/dL Final 12/05/2019 0.45 (L) 0.58 - 0.96 mg/dL Final 11/11/2019 0.52 (L) 0.58 - 0.96 mg/dL Final 12/19 COVID negative 12/19 urine culture pending 12/19 right knee operative cultures pending ? Imagin/21 right knee post-op XR: IMPRESSION: Postoperative changes with satisfactory position of the knee arthroplasty. ?Postop air, fluid and swelling noted ? Assessment: 1. 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 History right knee PJI with MSSA in October 2019 - completed ~5 weeks cefazolin at that time, then was prescribed suppressive doxycycline. Did not take suppression ? Plan: 1. Continue vancomycin and zosyn 2. Follow-up cultures 3. PICC ordered 4. Anticipate final recs Thursday 5. Vanco level now - hold any further doses if >[address] Masterson covering weekend. Will be following peripherally. Please call if acute concerns. Sanjana Tarango MD [employer] Contact#: [phone] [facility] 12-20-2020 Note HNO ID: [id number] Author: Maricel Levy MD Service: Hospital Medicine Author Type: Physician Type: Progress Notes Filed: 12/20/2020 4:55 PM Note Text: DEPARTMENT OF HOSPITAL MEDICINE PROGRESS NOTE SERVICE DATE: December 20, 2020 SERVICE TIME: 3:42 PM Hospital Medicine/Primary Attending: Maricel Levy MD NIGHT AND WEEKEND COVERAGE: NIGHT AND WEEKEND COVERAGE: [facility] COVERAGE: Patient admitted to Hospitalist Service From 0700 - 1630, please contact pager listed in Epic for patient issues. From 1630 - 0700, please contact the Night Hospitalist on pager [phone] for patient issues. Subjective INTERVAL HPI: No overnight events. S/p arthrocentesis and wash out on 12/19. Continued to have pain in R-joint. No new complaints. MEDICATIONS: Reviewed. Objective PHYSICAL EXAM: BP 107/61 Pulse 63 Temp (Src) 97.7 (Oral) Resp 18 Ht 5' 11 (1.80m) Wt 232 lb (105.2kg) SpO2 94% BMI 32.37 kg/(m2). O2 Therapy: Nasal Cannula, Liters: 2.00 GENERAL: Alert, no distress, cooperative SKIN: Skin color, texture, turgor normal. No visible rashes. HEAD/SINUSES: No significant findings NECK: Supple, No jugulovenous distention LUNGS: Lungs clear to auscultation bilaterally, No wheezing, rales, or rhonchi CARDIAC: Normal S1 and S2; no rubs, murmurs, or gallops ABDOMEN: BS normal, Abdomen soft, non-tender, non-distended EXTREMITIES: No deformities or edema; R-knee well dressed NEURO: Awake, alert and oriented Lines, Drains, and Airways Line Peripheral 12/18/202319 Admission to Hospital Short Left Wrist 22 Gauge 1 day DATA: Diagnostic tests reviewed for today's visit: All relevant tests reviewed. Assessment/Plan 65 Y F with hx of acute PE, DVT, on eliquis presenting with dysuria and acute right knee pain, treated for UTI and septic arthritis. UTI UA dirty; culture pending - c/w vanc and zosyn Hx of DVT and PE Dx in 2018; on eliquis. stable s/p R-knee wash - Ortho to place orders for Anticoagulation post surgery Septic arthritis of R-knee S/P joint aspirate, fluid analysis suspicious for septic joint; s/p wash Ortho following Not febrile; no leukocytosis - c/w vanc and zosyn; awaiting culture - Pain mx MS (multiple sclerosis) (HCC) POA: Yes WC bound Urine and fecal incontinence LE parasthesia - stable; CTM Essential hypertension POA: Yes Controlled - Continue Metoprolol; hold HCTZ Current smoker POA: Yes - Nicotine patches Seizure (HCC) POA: Yes - Continue Depakote Depressoin/Anxiety - c/w paxil and seroquil Medication and Non-Pharmacologic VTE Prophylaxis/Anticoagulants Anticoagulant AND Antiplatelet Medications (From admission, onward) Comment Start Dose Route Frequency Last Action Ordered Stop 12/20/20 0900 enoxaparin 40 mg injection (LOVENOX) (Surgical Risk Categories) 40 mg SUBCUTANEOUS EVERY 24 HOURS Given, 12/20 81312/19/202004 -- VTE prophylaxis appropriate. Disposition: To be determined Plan of care discussed with: Patient, RN, patient and case management SIGNATURE: Maricel Levy MD PATIENT NAME: Charlie Nguyen DATE: December 20, 2020 TIME: 4:55 PM PAGER/CONTACT #: [phone] [facility] 12-20-2020 Note HNO ID: [id number] Author: Fadumo Tinsley PA-C Service: Anesthesiology Author Type: Physician Kapok Machine Operator Type: Progress Notes Filed: 12/20/2020 9:06 AM Note Text: Acute Pain Service Progress Note PATIENT NAME: Charlie Nguyen : 1955 Acute Pain Service Service date/time: 12/20/2020 8:59 AM Primary service: Orthopedics Chief complaint: Post-operative pain Interval HPI POD: 1 Pre-Operative (baseline) Pain Score: 8/10 History of chronic pain: yes Location: Neck (h/o MS) Severity: Severe Duration of pain: Intermittent Pain regiment prior to admission: Oral Opioids (Percocet and Lyrica) Pain Level At rest: 8 Physical therapy sessions: Pending. Plan ASSESSMENT AND PLAN: Charlie Nguyne is a 65 year old female who is POD 1, S/P RIGHT knee irrigation and debridement, revision of modular parts with RIGHT single shot adductor canal block for post-operative pain control. Pain is currently well-controlled and patient denies intolerable side effects from the block. Continue multimodal analgesics: - Tylenol 650 mg po every 8 hours - Percocet 5/325 mg po every 4 hours prn - Lyrica 100 mg po BID Acute Pain Service will sign off - please re consult if needed Patient analgesic options via: other Plan discussed with: patient Plan discussed with: Dr. Castro Comments Review of Systems Cardiovascular (-) chest pain, palpitations FLIGHT OPERATIONS COORDINATOR (+) numbness within ditribution of block NEURO (+) diminished sensation with distribution Skin - negative skin ROS ENT - negative ENT ROS GI (-) nausea, vomiting Respiratory nasal cannula 3 L/min Sensory / Motor Exam Affect: alert, awake, General Appearance: appears comfortable, Surgical Limb RLE: diminished at distribution of nerve block Non-Surgical Limb LUE: sensation intact RUE: sensation intact Motor Exam Left Upper Extremity Intact Right Upper Extremity Intact Left Lower Extremity Right Lower Extremity Diminished at distribution of block BP 93/55 Pulse 71 Temp 36.4 ?C (97.5 ?F) (Oral) Resp 16 Ht 180.3 cm (5' 11) Wt 105.2 kg (232 lb) LMP (LMP Unknown) SpO2 92% BMI 32.36 kg/m? ALLERGIES Allergen Reactions - Nsaids (Non-Steroid* GI Upset - Gabapentin GI Upset - Macrobid [Nitrofura* Hives - Tramadol Contraindication-Medical Surgical Drug interaction with amitriptyline - told not to take due to increased seizure risk - [place] [Hydrocodone-* GI Upset Didn't do anything for her pain Current Facility-Administered Medications Medication Dose Route Frequency - diazePAM 5 mg tab(s) (VALIUM) 5 mg ORAL q 12 H PRN - valproic acid 250 mg CUP (DEPAKENE) 250 mg ORAL TID - ondansetron 4 mg tab(s) (ZOFRAN) 4 mg ORAL q 8 H PRN - QUEtiapine 50 mg tablet (SEROquel) 50 mg ORAL AT BEDTIME - pramoxine-hydrocortisone 1-1 % 1 Applicator (PROCTOFOAM-HC) 1 Applicator RECTAL BID - polyethylene glycol 3350 17 g packet (MIRALAX, GLYCOLAX) 17 g ORAL DAILY - pantoprazole DR 40 mg tab(s) (PROTONIX) 40 mg ORAL DAILY - diclofenac 1 % 4 g topical gel (VOLTAREN) 4 g TOPICAL QID - NaCl 0.9% iv flush bag 20 mL INTRAVENOUS PRN - sodium chloride 0.9 % (flush) 3-5 mL (BD POSIFLUSH) 3-5 mL INTRAVENOUS q 12 H - nicotine 21 mg/24 hr 1 Patch (NICODERM) 1 Patch TRANSDERMAL DAILY - nicotine -- REMOVE patch OTHER DAILY - nicotine - verify patch OTHER q 8 H - PARoxetine 40 mg tab(s) (PAXIL) 40 mg ORAL DAILY - potassium chloride ER 20 mEq tab(s) (K-DUR, KLOR-CON) 20 mEq ORAL BID - pregabalin 100 mg cap(s) (LYRICA) 100 mg ORAL BID - ubegwzp-rqjwtjnrr-rjsdipj D3 500 mg(1,250mg) -200 unit 2 tablet 2 tablet ORAL BID - senna 17.2 mg tab(s) (SENOKOT) 17.2 mg ORAL AT BEDTIME - enoxaparin 40 mg injection (LOVENOX) 40 mg SUBCUTANEOUS q 24 HR - sodium chloride 0.9 % (flush) 3-5 mL (BD POSIFLUSH) 3-5 mL INTRAVENOUS q 12 H - piperacillin-tazobactam iv piggyback 3.375 g in dextrose (iso-osmotic) 50 mL (ZOSYN) 3.375 g INTRAVENOUS q 6 H - vancomycin dosing and monitoring per pharmacy OTHER As Directed - vancomycin 1.5 g in D5W 250 mL (VANCOCIN) 1.5 g INTRAVENOUS q 12 HR - oxyCODONE-acetaminophen 5-325 mg 1 tablet (PERCOCET) 1 tablet ORAL q 4 H PRN - lactated ringers 500 mL iv bolus 500 mL INTRAVENOUS ONCE - lactated ringers iv infusion 75 mL/hr INTRAVENOUS CONTINUOUS - acetaminophen 650 mg tab(s) (TYLENOL) 650 mg ORAL q 8 H - keTORolac 15 mg injection (TORADOL) 15 mg INTRAVENOUS q 6 H PRN - metoprolol tartrate (short acting) 50 mg tab(s) (LOPRESSOR) 50 mg ORAL BID - morphine 2 mg injection 2 mg INTRAVENOUS q 3 H PRN APTT 33.3 12/19/2020 PT Sec 10.9 12/19/2020 PT INR 1.0 12/19/2020 HGB 12.9 12/19/2020 Hematocrit 40.6 12/19/2020 Platelet Count 168 12/19/2020 SIGNATURE: Fadumo Tinsley PA-C DATE: December 20, 2020 TIME: 8:59 AM [facility] 12-20-2020 Note HNO ID: [id number] Author: Jasen Ewing DO Service: Orthopaedic Surgery Author Type: Resident Type: Progress Notes Filed: 12/20/2020 8:40 AM Note Text: ORTHOPEDIC POSTOP PROGRESS NOTE SERVICE DATE: 12/20/2020 SERVICE TIME: 8:37 AM Subjective Patient states that they are comfortable Well Controlled knee(s) pain. Moderate incisional pain. Denies fevers, chills, chest pain, SOB Objective VITAL SIGNS: BP 93/55 Pulse 71 Temp 36.4 ?C (97.5 ?F) (Oral) Resp 16 Ht 180.3 cm (5' 11) Wt 105.2 kg (232 lb) LMP (LMP Unknown) SpO2 92% BMI 32.36 kg/m? INTAKE AND OUTPUT: Intake/Output Summary (Last 24 hours) at 12/20/2020 0837 Last data filed at 12/20/2020 0420 Gross per 24 hour Intake 1740 ml Output 2080 ml Net -340 ml PHYSICAL EXAMINATION: Right Lower Extremity: Clark dressing c/d/i with HKB applied. Compartments soft and compressible Mild, appropriate TTP about knee Motor intact to DF/PF/EHL Sensory intact to light touch L3-S1. PT/DP pulses palpable. Problem Review and Assessment: Patient monitored, no new events overnight. LABS: Recent Labs 12/19/20 0638 HB 12.9 HCT 40.6 POST OPERATIVE COMPLICATIONS: Complicated by: uneventful/none DATA: Diagnostic tests reviewed for today's visit: Most recent labs and imaging results. Assessment/Plan S/P Procedure(s) (LRB): REVISION JOINT TOTAL KNEE ONE COMPONENT (Right) on 12/19/2020 POSTOP PLAN: Weight Bearing : WBAT RLE ROM: HKB at all times Dressing: aquacel R knee to be removed POD#7-10, ok for clark off on POD#2 by nursing Drains: none Musa: d/c POD#1, nursing driven protocol DVT prophylaxis: Lovenox 40mg daily bridge to eliquis POD#5 , IPDs Pain control: multimodal, per primary Antibiotics: vanc/zosyn PT/OT: await recs Medical management per primary, appreciated ID consulted, recs appreciated UTI - UA concerning for infection, on vanc/zosyn Intraop and aspiration cultures NGTD Case Management for discharge planning: await PT recs Please contact the orthopedic resident well control instructor with any questions or concerns. ACTIVE PROBLEM LIST Osteoarthritis of Right Knee Ms (Multiple Sclerosis) ([facility]) Essential Hypertension Lumbar Disc Herniation Current Smoker Knee Pain Primary Osteoarthritis of Left Knee Gastroesophageal Reflux Disease Without Esophagitis Headache S/P Total Knee Arthroplasty Extensor Tendon Disruption Knee Pain, Right S/P Revision of Total Knee, Right Rupture of Quadriceps Muscle Acute Deep Vein Thrombosis (Dvt) of Right Lower Extremity ([facility]) Acute Respiratory Failure With Hypoxia ([facility]) Chronic Pain Syndrome Chronic Prescription Benzodiazepine Use Chronic Prescription Opiate Use Repeat Prescription Issue Mechanical Complication of Internal Orthopedic Device, Implant Or Graft ([facility]) Failed Total Knee Arthroplasty ([facility]) Delirium Chronic Pain of Right Knee Hypotension History of Pulmonary Embolism Septic Arthritis ([facility]) Urinary Tract Infection Hypoxia Seizure ([facility]) Obesity, Class I, Bmi 30-34.9 Infection of Prosthetic Right Knee Joint ([facility]) Joint Infection ([facility]) Dysuria Jasen Marcos DO [place] 12/20/2020 8:37 AM Orthopedic Surgery Resident [id number] [facility] 12-19-2020 Note HNO ID: [id number] Author: Aubrey Jensen MD Service: Hospital Medicine Author Type: Physician Type: Plan of Care Filed: 12/19/2020 9:32 PM Note Text: Patient reports of taking percocet POA>. Reviewed PDMP. Ordered percocet overnight. Primary team to reassess in am. [facility] 12-19-2020 Note HNO ID: [id number] Author: Tenisha Ly APRN.HUMAN RESOURCE ANALYST Service: Anesthesiology Author Type: Nurse Printing Technician Type: Anesthesia Procedure Notes Filed: 12/19/2020 3:49 PM Note Text: ANESTHESIOLOGY PROCEDURE NOTE PIV General Information Patient Location: OR Staffing HUMAN RESOURCE ANALYST: Tenisha Ly APRN.HUMAN RESOURCE ANALYST Preparation Sterility Preparation: hand hygiene performed prior to procedure, surgical cap used, mask used, skin prep agent completely dried prior to procedure Site Prep: alcohol Procedure Details Indication: need for IV access Needle Size/Type: 18 gauge angiocath Orientation: Left Location: Forearm Imaging Guidance Used: No SIGNATURE: Tenisha Ly APRN.HUMAN RESOURCE ANALYST PATIENT NAME: Charlie Nguyen DATE: December 19, 2020 TIME: 3:49 PM CSN: [id number] [facility] 12-19-2020 Note HNO ID: [id number] Author: Tenisha Ly APRN.HUMAN RESOURCE ANALYST Service: Anesthesiology Author Type: Nurse Printing Technician Type: Anesthesia Procedure Notes Filed: 12/19/2020 3:49 PM Note Text: ANESTHESIOLOGY PROCEDURE NOTE Airway General Information Procedure Start Time/Medication Administration: 12/19/2020 3:40 PM Patient location during procedure: OR Patient identity confirmed: arm band Staffing HUMAN RESOURCE ANALYST: Tenisha Ly APRN.HUMAN RESOURCE ANALYST Indications and Patient Condition Preoxygenated: yes Difficult Mask: No Indications for airway management: anesthesia anesthesia circuit Method: sleep Final Airway Details Final airway type: endotracheal airway Final Endotracheal Airway: ETT Cuffed: yes Successful intubation technique: direct laryngoscopy Blade: Aaron Blade size: #3 ETT size (mm): 7.0 Measurement (cm): 21 Placement verified by: capnometry Cormack-Lehane Classification: grade I - full view of glottis Number of attempts at approach: 1 Airway not difficult SIGNATURE: Tenisha Ly APRN.CRNA PATIENT NAME: Charlie Nguyen DATE: December 19, 2020 TIME: 3:48 PM CSN: [id number] [facility] 12-19-2020 Note HNO ID: [id number] Author: Radha Mcpherson MD Service: Anesthesiology Author Type: Anesthesiologist Type: Anesthesia Procedure Notes Filed: 12/19/2020 2:33 PM Note Text: ANESTHESIOLOGY PROCEDURE NOTE Peripheral Nerve Block General Information Procedure Start Time/Medication Administration: 12/19/2020 2:00 PM Procedure End time: 12/19/2020 2:03 PM Patient location during procedure: pre-op Timeout Performed Pre-procedure: timeout performed Consent Obtained: Yes Patient identity confirmed: arm band, 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 deboning team leader Reason for block: post-op pain management/at surgeon's request and pain service Staffing Anesthesiologist: Radha Mcpherson MD Performed by: anesthesiologist Preparation Sterility Preparation: hand hygiene performed prior to procedure, surgical cap used, mask used, sterile drape used during line insertion, skin prep agent completely dried prior to procedure Site Prep: Chloraprep Pre-Procedure Neuro Exam Location: RLE Sensory: intact Motor: intact Procedure Details Patient Position: supine Monitoring: Pulse OX, EKG and NIBP Block Type Lower Extremity: femoral (adductor canal approach) Laterality: right Injection Technique: single-shot Ultrasound Guided: Yes Image in Chart: yes Local Infiltration: Yes Needle Needle Type: echogenic Needle Gauge: 21 G Needle Length: 10 cm Needle Localization: ultrasound Assessment Injection assessment: negative aspiration, no paresthesia on injection, incremental injection and local visualized surrounding nerve on ultrasound Paresthesia: none Post-Procedure Neuro Exam Expected Regional Anesthesia: Yes Medications Administered Dexamethasone sodium phosphate injection (DECADRON), 4 mg ropivacaine (PF) 2 mg/mL (0.2 %) injection (NAROPIN), 20 mL Comments Patient is communicating. No pain on injection. Procedure is well tolerated. Extended block is expected up to 24 hours post-block. Patient can be discharged to floor/home with the block intact. Standard ASA monitors were used. Vital signs were stable throughout; please see nursing record for vital signs during procedure. SIGNATURE: Radha Mcpherson MD PATIENT NAME: Charlie Nguyen DATE: December 19, 2020 TIME: 2:32 PM CSN: [id number] [facility] 12-19-2020 Note HNO ID: [id number] Author: Senait Girard RN Service: Nursing Author Type: Registered Nurse Type: Nursing Progress Note Filed: 12/19/2020 2:04 PM Note Text: NO sedation used except local Patient tolerated procedure very well [facility] 11-26-2017 History of Past i llness Narrative Problem Noted Date Resolved Date Acute pulmonary embolism 11/26/2017 019 Last Assessment & Plan: Assessment: No signs of PE. Holding Eliquis until ortho staff puts in final recommendations. Hx of PE in October 2017 Currently on Apixiban PLAN: Resumed apixiban, 5mg Bid because no indication for 2.5mg BID S/P total knee arthroplasty, right 06/25/2017 07/08/2017 Overview: Added automatically from request for surgery [id number] Acute pain of right knee 06/25/2017 018 Overview: Added automatically from request for surgery [id number] Patellar dislocation, right, initial encounter 1 06/20/2016 04/21/2017 Status post total knee replacement using cement, right 04/16/2017 04/21/2017 Overview: Added automatically from request for surgery [id number] Acute pain of right knee 04/16/2017 017 Overview: Added automatically from request for surgery [id number] SUMMARY 04/03/2017 04/17/2017 Overview: Admit date: 04/03/2017 Reason for Admission/Observation: Unable to function Presentation: Patient is a 61-year-old female with PMH of MS, osteoarthritis, MRSA and herniated disc of the lumbar spine presenting to the ED via EMS for right knee pain 4 days that started suddenly when the patient fell 4 days ago when her right leg would not move with her other leg. Patient had a knee replacement on the left knee on January 28, 2017. She had her right knee replaced earlier this year. She denies head trauma or LOC. No numbness or tingling in the leg. She normally takes oxycodone at home for pain, but was unable to reach her pain medicine today and has not taken anything for pain today. She is unable to completely flex the knee due to pain. She was actually scheduled for surgery of the right knee today by Dr. Valle and orthopedics, but they would not do the surgery because of her recent fall and increased pain. She has apparently been urinating in a trash can next to her bed because she is unable to get up. She lives at home with her son who has been of minimal help. Hospital course: Consultants: Elieser Valle Needed for Discharge: Disposition: documented as of this encounter (statuses as of 08/26/2021) [facility] History of Past illness Narrative* Problem Noted Date Resolved Date Acute pulmonary embolism 11/26/2017 019 Last Assessment & Plan: Assessment: No signs of PE. Holding Eliquis until ortho staff puts in final recommendations. Hx of PE in October 2017 Currently on Apixiban PLAN: Resumed apixiban, 5mg Bid because no indication for 2.5mg BID S/P total knee arthroplasty, right 06/25/2017 07/08/2017 Overview: Added automatically from request for surgery [id number] Acute pain of right knee 06/25/2017 018 Overview: Added automatically from request for surgery [id number] Patellar dislocation, right, initial encounter 1 06/20/2016 04/21/2017 Status post total knee replacement using cement, right 04/16/2017 04/21/2017 Overview: Added automatically from request for surgery [id number] Acute pain of right knee 04/16/2017 017 Overview: Added automatically from request for surgery [id number] SUMMARY 04/03/2017 04/17/2017 Overview: Admit date: 04/03/2017 Reason for Admission/Observation: Unable to function Presentation: Patient is a 61-year-old female with PMH of MS, osteoarthritis, MRSA and herniated disc of the lumbar spine presenting to the ED via EMS for right knee pain 4 days that started suddenly when the patient fell 4 days ago when her right leg would not move with her other leg. Patient had a knee replacement on the left knee on January 28, 2017. She had her right knee replaced earlier this year. She denies head trauma or LOC. No numbness or tingling in the leg. She normally takes oxycodone at home for pain, but was unable to reach her pain medicine today and has not taken anything for pain today. She is unable to completely flex the knee due to pain. She was actually scheduled for surgery of the right knee today by Dr. Valle and orthopedics, but they would not do the surgery because of her recent fall and increased pain. She has apparently been urinating in a trash can next to her bed because she is unable to get up. She lives at home with her son who has been of minimal help. Hospital course: Consultants: Elieser Valle Needed for Discharge: Disposition: documented as of this encounter (statuses as of 08/27/2021) [facility] History of Past illness Narrative* Problem Noted Date Resolved Date Acute pulmonary embolism 11/26/2017 019 Last Assessment & Plan: Assessment: No signs of PE. Holding Eliquis until ortho staff puts in final recommendations. Hx of PE in October 2017 Currently on Apixiban PLAN: Resumed apixiban, 5mg Bid because no indication for 2.5mg BID S/P total knee arthroplasty, right 06/25/2017 07/08/2017 Overview: Added automatically from request for surgery [id number] Acute pain of right knee 06/25/2017 018 Overview: Added automatically from request for surgery [id number] Patellar dislocation, right, initial encounter 1 06/20/2016 04/21/2017 Status post total knee replacement using cement, right 04/16/2017 04/21/2017 Overview: Added automatically from request for surgery [id number] Acute pain of right knee 04/16/2017 017 Overview: Added automatically from request for surgery [id number] SUMMARY 04/03/2017 04/17/2017 Overview: Admit date: 04/03/2017 Reason for Admission/Observation: Unable to function Presentation: Patient is a 61-year-old female with PMH of MS, osteoarthritis, MRSA and herniated disc of the lumbar spine presenting to the ED via EMS for right knee pain 4 days that started suddenly when the patient fell 4 days ago when her right leg would not move with her other leg. Patient had a knee replacement on the left knee on January 28, 2017. She had her right knee replaced earlier this year. She denies head trauma or LOC. No numbness or tingling in the leg. She normally takes oxycodone at home for pain, but was unable to reach her pain medicine today and has not taken anything for pain today. She is unable to completely flex the knee due to pain. She was actually scheduled for surgery of the right knee today by Dr. Valle and orthopedics, but they would not do the surgery because of her recent fall and increased pain. She has apparently been urinating in a trash can next to her bed because she is unable to get up. She lives at home with her son who has been of minimal help. Hospital course: Consultants: Elieser Valle Needed for Discharge: Disposition: documented as of this encounter (statuses as of 08/27/2021) [facility] History of Past illness Narrative* Problem Noted Date Resolved Date Acute pulmonary embolism 11/26/2017 019 Last Assessment & Plan: Assessment: No signs of PE. Holding Eliquis until ortho staff puts in final recommendations. Hx of PE in October 2017 Currently on Apixiban PLAN: Resumed apixiban, 5mg Bid because no indication for 2.5mg BID S/P total knee arthroplasty, right 06/25/2017 07/08/2017 Overview: Added automatically from request for surgery [id number] Acute pain of right knee 06/25/2017 018 Overview: Added automatically from request for surgery [id number] Patellar dislocation, right, initial encounter 1 06/20/2016 04/21/2017 Status post total knee replacement using cement, right 04/16/2017 04/21/2017 Overview: Added automatically from request for surgery [id number] Acute pain of right knee 04/16/2017 017 Overview: Added automatically from request for surgery [id number] SUMMARY 04/03/2017 04/17/2017 Overview: Admit date: 04/03/2017 Reason for Admission/Observation: Unable to function Presentation: Patient is a 61-year-old female with PMH of MS, osteoarthritis, MRSA and herniated disc of the lumbar spine presenting to the ED via EMS for right knee pain 4 days that started suddenly when the patient fell 4 days ago when her right leg would not move with her other leg. Patient had a knee replacement on the left knee on January 28, 2017. She had her right knee replaced earlier this year. She denies head trauma or LOC. No numbness or tingling in the leg. She normally takes oxycodone at home for pain, but was unable to reach her pain medicine today and has not taken anything for pain today. She is unable to completely flex the knee due to pain. She was actually scheduled for surgery of the right knee today by Dr. Valle and orthopedics, but they would not do the surgery because of her recent fall and increased pain. She has apparently been urinating in a trash can next to her bed because she is unable to get up. She lives at home with her son who has been of minimal help. Hospital course: Consultants: Elieser Valle Needed for Discharge: Disposition: documented as of this encounter (statuses as of 09/27/2021) [facility] History of Past illness Narrative* Problem Noted Date Resolved Date Acute pulmonary embolism 11/26/2017 019 Last Assessment & Plan: Assessment: No signs of PE. Holding Eliquis until ortho staff puts in final recommendations. Hx of PE in October 2017 Currently on Apixiban PLAN: Resumed apixiban, 5mg Bid because no indication for 2.5mg BID S/P total knee arthroplasty, right 06/25/2017 07/08/2017 Overview: Added automatically from request for surgery [id number] Acute pain of right knee 06/25/2017 018 Overview: Added automatically from request for surgery [id number] Patellar dislocation, right, initial encounter 1 06/20/2016 04/21/2017 Status post total knee replacement using cement, right 04/16/2017 04/21/2017 Overview: Added automatically from request for surgery [id number] Acute pain of right knee 04/16/2017 017 Overview: Added automatically from request for surgery [id number] SUMMARY 04/03/2017 04/17/2017 Overview: Admit date: 04/03/2017 Reason for Admission/Observation: Unable to function Presentation: Patient is a 61-year-old female with PMH of MS, osteoarthritis, MRSA and herniated disc of the lumbar spine presenting to the ED via EMS for right knee pain 4 days that started suddenly when the patient fell 4 days ago when her right leg would not move with her other leg. Patient had a knee replacement on the left knee on January 28, 2017. She had her right knee replaced earlier this year. She denies head trauma or LOC. No numbness or tingling in the leg. She normally takes oxycodone at home for pain, but was unable to reach her pain medicine today and has not taken anything for pain today. She is unable to completely flex the knee due to pain. She was actually scheduled for surgery of the right knee today by Dr. Valle and orthopedics, but they would not do the surgery because of her recent fall and increased pain. She has apparently been urinating in a trash can next to her bed because she is unable to get up. She lives at home with her son who has been of minimal help. Hospital course: Consultants: Elieser Valle Needed for Discharge: Disposition: documented as of this encounter (statuses as of 10/04/2021) [facility] History of Past illness Narrative* Problem Noted Date Resolved Date Acute pulmonary embolism 11/26/2017 019 Last Assessment & Plan: Assessment: No signs of PE. Holding Eliquis until ortho staff puts in final recommendations. Hx of PE in October 2017 Currently on Apixiban PLAN: Resumed apixiban, 5mg Bid because no indication for 2.5mg BID S/P total knee arthroplasty, right 06/25/2017 07/08/2017 Overview: Added automatically from request for surgery [id number] Acute pain of right knee 06/25/2017 018 Overview: Added automatically from request for surgery [id number] Patellar dislocation, right, initial encounter 1 06/20/2016 04/21/2017 Status post total knee replacement using cement, right 04/16/2017 04/21/2017 Overview: Added automatically from request for surgery [id number] Acute pain of right knee 04/16/2017 017 Overview: Added automatically from request for surgery [id number] SUMMARY 04/03/2017 04/17/2017 Overview: Admit date: 04/03/2017 Reason for Admission/Observation: Unable to function Presentation: Patient is a 61-year-old female with PMH of MS, osteoarthritis, MRSA and herniated disc of the lumbar spine presenting to the ED via EMS for right knee pain 4 days that started suddenly when the patient fell 4 days ago when her right leg would not move with her other leg. Patient had a knee replacement on the left knee on January 28, 2017. She had her right knee replaced earlier this year. She denies head trauma or LOC. No numbness or tingling in the leg. She normally takes oxycodone at home for pain, but was unable to reach her pain medicine today and has not taken anything for pain today. She is unable to completely flex the knee due to pain. She was actually scheduled for surgery of the right knee today by Dr. Valle and orthopedics, but they would not do the surgery because of her recent fall and increased pain. She has apparently been urinating in a trash can next to her bed because she is unable to get up. She lives at home with her son who has been of minimal help. Hospital course: Consultants: Elieser Valle Needed for Discharge: Disposition: documented as of this encounter (statuses as of 10/07/2021) [facility] History of Past illness Narrative* Problem Noted Date Resolved Date Acute pulmonary embolism 11/26/2017 019 Last Assessment & Plan: Assessment: No signs of PE. Holding Eliquis until ortho staff puts in final recommendations. Hx of PE in October 2017 Currently on Apixiban PLAN: Resumed apixiban, 5mg Bid because no indication for 2.5mg BID S/P total knee arthroplasty, right 06/25/2017 07/08/2017 Overview: Added automatically from request for surgery [id number] Acute pain of right knee 06/25/2017 018 Overview: Added automatically from request for surgery [id number] Patellar dislocation, right, initial encounter 1 06/20/2016 04/21/2017 Status post total knee replacement using cement, right 04/16/2017 04/21/2017 Overview: Added automatically from request for surgery [id number] Acute pain of right knee 04/16/2017 017 Overview: Added automatically from request for surgery [id number] SUMMARY 04/03/2017 04/17/2017 Overview: Admit date: 04/03/2017 Reason for Admission/Observation: Unable to function Presentation: Patient is a 61-year-old female with PMH of MS, osteoarthritis, MRSA and herniated disc of the lumbar spine presenting to the ED via EMS for right knee pain 4 days that started suddenly when the patient fell 4 days ago when her right leg would not move with her other leg. Patient had a knee replacement on the left knee on January 28, 2017. She had her right knee replaced earlier this year. She denies head trauma or LOC. No numbness or tingling in the leg. She normally takes oxycodone at home for pain, but was unable to reach her pain medicine today and has not taken anything for pain today. She is unable to completely flex the knee due to pain. She was actually scheduled for surgery of the right knee today by Dr. Valle and orthopedics, but they would not do the surgery because of her recent fall and increased pain. She has apparently been urinating in a trash can next to her bed because she is unable to get up. She lives at home with her son who has been of minimal help. Hospital course: Consultants: Elieser Valle Needed for Discharge: Disposition: documented as of this encounter (statuses as of 10/08/2021) [facility] History of Past illness Narrative* Problem Noted Date Resolved Date Acute pulmonary embolism 11/26/2017 019 Last Assessment & Plan: Assessment: No signs of PE. Holding Eliquis until ortho staff puts in final recommendations. Hx of PE in October 2017 Currently on Apixiban PLAN: Resumed apixiban, 5mg Bid because no indication for 2.5mg BID S/P total knee arthroplasty, right 06/25/2017 07/08/2017 Overview: Added automatically from request for surgery [id number] Acute pain of right knee 06/25/2017 018 Overview: Added automatically from request for surgery [id number] Patellar dislocation, right, initial encounter 1 06/20/2016 04/21/2017 Status post total knee replacement using cement, right 04/16/2017 04/21/2017 Overview: Added automatically from request for surgery [id number] Acute pain of right knee 04/16/2017 017 Overview: Added automatically from request for surgery [id number] SUMMARY 04/03/2017 04/17/2017 Overview: Admit date: 04/03/2017 Reason for Admission/Observation: Unable to function Presentation: Patient is a 61-year-old female with PMH of MS, osteoarthritis, MRSA and herniated disc of the lumbar spine presenting to the ED via EMS for right knee pain 4 days that started suddenly when the patient fell 4 days ago when her right leg would not move with her other leg. Patient had a knee replacement on the left knee on January 28, 2017. She had her right knee replaced earlier this year. She denies head trauma or LOC. No numbness or tingling in the leg. She normally takes oxycodone at home for pain, but was unable to reach her pain medicine today and has not taken anything for pain today. She is unable to completely flex the knee due to pain. She was actually scheduled for surgery of the right knee today by Dr. Valle and orthopedics, but they would not do the surgery because of her recent fall and increased pain. She has apparently been urinating in a trash can next to her bed because she is unable to get up. She lives at home with her son who has been of minimal help. Hospital course: Consultants: Elieser Valle Needed for Discharge: Disposition: documented as of this encounter (statuses as of 10/14/2021) [facility] History of Past illness Narrative* Problem Noted Date Resolved Date Acute pulmonary embolism 11/26/2017 019 Last Assessment & Plan: Assessment: No signs of PE. Holding Eliquis until ortho staff puts in final recommendations. Hx of PE in October 2017 Currently on Apixiban PLAN: Resumed apixiban, 5mg Bid because no indication for 2.5mg BID S/P total knee arthroplasty, right 06/25/2017 07/08/2017 Overview: Added automatically from request for surgery [id number] Acute pain of right knee 06/25/2017 018 Overview: Added automatically from request for surgery [id number] Patellar dislocation, right, initial encounter 1 06/20/2016 04/21/2017 Status post total knee replacement using cement, right 04/16/2017 04/21/2017 Overview: Added automatically from request for surgery [id number] Acute pain of right knee 04/16/2017 017 Overview: Added automatically from request for surgery [id number] SUMMARY 04/03/2017 04/17/2017 Overview: Admit date: 04/03/2017 Reason for Admission/Observation: Unable to function Presentation: Patient is a 61-year-old female with PMH of MS, osteoarthritis, MRSA and herniated disc of the lumbar spine presenting to the ED via EMS for right knee pain 4 days that started suddenly when the patient fell 4 days ago when her right leg would not move with her other leg. Patient had a knee replacement on the left knee on January 28, 2017. She had her right knee replaced earlier this year. She denies head trauma or LOC. No numbness or tingling in the leg. She normally takes oxycodone at home for pain, but was unable to reach her pain medicine today and has not taken anything for pain today. She is unable to completely flex the knee due to pain. She was actually scheduled for surgery of the right knee today by Dr. Valle and orthopedics, but they would not do the surgery because of her recent fall and increased pain. She has apparently been urinating in a trash can next to her bed because she is unable to get up. She lives at home with her son who has been of minimal help. Hospital course: Consultants: Elieser Valle Needed for Discharge: Disposition: documented as of this encounter (statuses as of 10/22/2021) [facility] History of Past illness Narrative* Problem Noted Date Resolved Date Acute pulmonary embolism 11/26/2017 019 Last Assessment & Plan: Assessment: No signs of PE. Holding Eliquis until ortho staff puts in final recommendations. Hx of PE in October 2017 Currently on Apixiban PLAN: Resumed apixiban, 5mg Bid because no indication for 2.5mg BID S/P total knee arthroplasty, right 06/25/2017 07/08/2017 Overview: Added automatically from request for surgery [id number] Acute pain of right knee 06/25/2017 018 Overview: Added automatically from request for surgery [id number] Patellar dislocation, right, initial encounter 1 06/20/2016 04/21/2017 Status post total knee replacement using cement, right 04/16/2017 04/21/2017 Overview: Added automatically from request for surgery [id number] Acute pain of right knee 04/16/2017 017 Overview: Added automatically from request for surgery [id number] SUMMARY 04/03/2017 04/17/2017 Overview: Admit date: 04/03/2017 Reason for Admission/Observation: Unable to function Presentation: Patient is a 61-year-old female with PMH of MS, osteoarthritis, MRSA and herniated disc of the lumbar spine presenting to the ED via EMS for right knee pain 4 days that started suddenly when the patient fell 4 days ago when her right leg would not move with her other leg. Patient had a knee replacement on the left knee on January 28, 2017. She had her right knee replaced earlier this year. She denies head trauma or LOC. No numbness or tingling in the leg. She normally takes oxycodone at home for pain, but was unable to reach her pain medicine today and has not taken anything for pain today. She is unable to completely flex the knee due to pain. She was actually scheduled for surgery of the right knee today by Dr. Valle and orthopedics, but they would not do the surgery because of her recent fall and increased pain. She has apparently been urinating in a trash can next to her bed because she is unable to get up. She lives at home with her son who has been of minimal help. Hospital course: Consultants: Elieser Valle Needed for Discharge: Disposition: documented as of this encounter (statuses as of 10/29/2021) [facility] History of Past illness Narrative* Problem Noted Date Resolved Date Acute pulmonary embolism 11/26/2017 019 Last Assessment & Plan: Assessment: No signs of PE. Holding Eliquis until ortho staff puts in final recommendations. Hx of PE in October 2017 Currently on Apixiban PLAN: Resumed apixiban, 5mg Bid because no indication for 2.5mg BID S/P total knee arthroplasty, right 06/25/2017 07/08/2017 Overview: Added automatically from request for surgery [id number] Acute pain of right knee 06/25/2017 018 Overview: Added automatically from request for surgery [id number] Patellar dislocation, right, initial encounter 1 06/20/2016 04/21/2017 Status post total knee replacement using cement, right 04/16/2017 04/21/2017 Overview: Added automatically from request for surgery [id number] Acute pain of right knee 04/16/2017 017 Overview: Added automatically from request for surgery [id number] SUMMARY 04/03/2017 04/17/2017 Overview: Admit date: 04/03/2017 Reason for Admission/Observation: Unable to function Presentation: Patient is a 61-year-old female with PMH of MS, osteoarthritis, MRSA and herniated disc of the lumbar spine presenting to the ED via EMS for right knee pain 4 days that started suddenly when the patient fell 4 days ago when her right leg would not move with her other leg. Patient had a knee replacement on the left knee on January 28, 2017. She had her right knee replaced earlier this year. She denies head trauma or LOC. No numbness or tingling in the leg. She normally takes oxycodone at home for pain, but was unable to reach her pain medicine today and has not taken anything for pain today. She is unable to completely flex the knee due to pain. She was actually scheduled for surgery of the right knee today by Dr. Valle and orthopedics, but they would not do the surgery because of her recent fall and increased pain. She has apparently been urinating in a trash can next to her bed because she is unable to get up. She lives at home with her son who has been of minimal help. Hospital course: Consultants: Elieser Valle Needed for Discharge: Disposition: documented as of this encounter (statuses as of 11/18/2021) [facility] History of Past illness Narrative* Problem Noted Date Resolved Date Acute pulmonary embolism 11/26/2017 019 Last Assessment & Plan: Assessment: No signs of PE. Holding Eliquis until ortho staff puts in final recommendations. Hx of PE in October 2017 Currently on Apixiban PLAN: Resumed apixiban, 5mg Bid because no indication for 2.5mg BID S/P total knee arthroplasty, right 06/25/2017 07/08/2017 Overview: Added automatically from request for surgery [id number] Acute pain of right knee 06/25/2017 018 Overview: Added automatically from request for surgery [id number] Patellar dislocation, right, initial encounter 1 06/20/2016 04/21/2017 Status post total knee replacement using cement, right 04/16/2017 04/21/2017 Overview: Added automatically from request for surgery [id number] Acute pain of right knee 04/16/2017 017 Overview: Added automatically from request for surgery [id number] SUMMARY 04/03/2017 04/17/2017 Overview: Admit date: 04/03/2017 Reason for Admission/Observation: Unable to function Presentation: Patient is a 61-year-old female with PMH of MS, osteoarthritis, MRSA and herniated disc of the lumbar spine presenting to the ED via EMS for right knee pain 4 days that started suddenly when the patient fell 4 days ago when her right leg would not move with her other leg. Patient had a knee replacement on the left knee on January 28, 2017. She had her right knee replaced earlier this year. She denies head trauma or LOC. No numbness or tingling in the leg. She normally takes oxycodone at home for pain, but was unable to reach her pain medicine today and has not taken anything for pain today. She is unable to completely flex the knee due to pain. She was actually scheduled for surgery of the right knee today by Dr. Valle and orthopedics, but they would not do the surgery because of her recent fall and increased pain. She has apparently been urinating in a trash can next to her bed because she is unable to get up. She lives at home with her son who has been of minimal help. Hospital course: Consultants: Elieser Valle Needed for Discharge: Disposition: documented as of this encounter (statuses as of 11/19/2021) [facility] History of Past illness Narrative* Problem Noted Date Resolved Date Acute pulmonary embolism 11/26/2017 019 Last Assessment & Plan: Assessment: No signs of PE. Holding Eliquis until ortho staff puts in final recommendations. Hx of PE in October 2017 Currently on Apixiban PLAN: Resumed apixiban, 5mg Bid because no indication for 2.5mg BID S/P total knee arthroplasty, right 06/25/2017 07/08/2017 Overview: Added automatically from request for surgery [id number] Acute pain of right knee 06/25/2017 018 Overview: Added automatically from request for surgery [id number] Patellar dislocation, right, initial encounter 1 06/20/2016 04/21/2017 Status post total knee replacement using cement, right 04/16/2017 04/21/2017 Overview: Added automatically from request for surgery [id number] Acute pain of right knee 04/16/2017 017 Overview: Added automatically from request for surgery [id number] SUMMARY 04/03/2017 04/17/2017 Overview: Admit date: 04/03/2017 Reason for Admission/Observation: Unable to function Presentation: Patient is a 61-year-old female with PMH of MS, osteoarthritis, MRSA and herniated disc of the lumbar spine presenting to the ED via EMS for right knee pain 4 days that started suddenly when the patient fell 4 days ago when her right leg would not move with her other leg. Patient had a knee replacement on the left knee on January 28, 2017. She had her right knee replaced earlier this year. She denies head trauma or LOC. No numbness or tingling in the leg. She normally takes oxycodone at home for pain, but was unable to reach her pain medicine today and has not taken anything for pain today. She is unable to completely flex the knee due to pain. She was actually scheduled for surgery of the right knee today by Dr. Valle and orthopedics, but they would not do the surgery because of her recent fall and increased pain. She has apparently been urinating in a trash can next to her bed because she is unable to get up. She lives at home with her son who has been of minimal help. Hospital course: Consultants: Elieser Valle Needed for Discharge: Disposition: documented as of this encounter (statuses as of 11/20/2021) [facility] History of Past illness Narrative* Problem Noted Date Resolved Date Acute pulmonary embolism 11/26/2017 019 Last Assessment & Plan: Assessment: No signs of PE. Holding Eliquis until ortho staff puts in final recommendations. Hx of PE in October 2017 Currently on Apixiban PLAN: Resumed apixiban, 5mg Bid because no indication for 2.5mg BID S/P total knee arthroplasty, right 06/25/2017 07/08/2017 Overview: Added automatically from request for surgery [id number] Acute pain of right knee 06/25/2017 018 Overview: Added automatically from request for surgery [id number] Patellar dislocation, right, initial encounter 1 06/20/2016 04/21/2017 Status post total knee replacement using cement, right 04/16/2017 04/21/2017 Overview: Added automatically from request for surgery [id number] Acute pain of right knee 04/16/2017 017 Overview: Added automatically from request for surgery [id number] SUMMARY 04/03/2017 04/17/2017 Overview: Admit date: 04/03/2017 Reason for Admission/Observation: Unable to function Presentation: Patient is a 61-year-old female with PMH of MS, osteoarthritis, MRSA and herniated disc of the lumbar spine presenting to the ED via EMS for right knee pain 4 days that started suddenly when the patient fell 4 days ago when her right leg would not move with her other leg. Patient had a knee replacement on the left knee on January 28, 2017. She had her right knee replaced earlier this year. She denies head trauma or LOC. No numbness or tingling in the leg. She normally takes oxycodone at home for pain, but was unable to reach her pain medicine today and has not taken anything for pain today. She is unable to completely flex the knee due to pain. She was actually scheduled for surgery of the right knee today by Dr. Valle and orthopedics, but they would not do the surgery because of her recent fall and increased pain. She has apparently been urinating in a trash can next to her bed because she is unable to get up. She lives at home with her son who has been of minimal help. Hospital course: Consultants: Elieser Valle Needed for Discharge: Disposition: documented as of this encounter (statuses as of 11/21/2021) [facility] History of Past illness Narrative* Problem Noted Date Resolved Date Acute pulmonary embolism 11/26/2017 019 Last Assessment & Plan: Assessment: No signs of PE. Holding Eliquis until ortho staff puts in final recommendations. Hx of PE in October 2017 Currently on Apixiban PLAN: Resumed apixiban, 5mg Bid because no indication for 2.5mg BID S/P total knee arthroplasty, right 06/25/2017 07/08/2017 Overview: Added automatically from request for surgery [id number] Acute pain of right knee 06/25/2017 018 Overview: Added automatically from request for surgery [id number] Patellar dislocation, right, initial encounter 1 06/20/2016 04/21/2017 Status post total knee replacement using cement, right 04/16/2017 04/21/2017 Overview: Added automatically from request for surgery [id number] Acute pain of right knee 04/16/2017 017 Overview: Added automatically from request for surgery [id number] SUMMARY 04/03/2017 04/17/2017 Overview: Admit date: 04/03/2017 Reason for Admission/Observation: Unable to function Presentation: Patient is a 61-year-old female with PMH of MS, osteoarthritis, MRSA and herniated disc of the lumbar spine presenting to the ED via EMS for right knee pain 4 days that started suddenly when the patient fell 4 days ago when her right leg would not move with her other leg. Patient had a knee replacement on the left knee on January 28, 2017. She had her right knee replaced earlier this year. She denies head trauma or LOC. No numbness or tingling in the leg. She normally takes oxycodone at home for pain, but was unable to reach her pain medicine today and has not taken anything for pain today. She is unable to completely flex the knee due to pain. She was actually scheduled for surgery of the right knee today by Dr. Valle and orthopedics, but they would not do the surgery because of her recent fall and increased pain. She has apparently been urinating in a trash can next to her bed because she is unable to get up. She lives at home with her son who has been of minimal help. Hospital course: Consultants: Elieser Valle Needed for Discharge: Disposition: documented as of this encounter (statuses as of 11/25/2021) [facility] History of Past illness Narrative* Problem Noted Date Resolved Date Acute pulmonary embolism 11/26/2017 019 Last Assessment & Plan: Assessment: No signs of PE. Holding Eliquis until ortho staff puts in final recommendations. Hx of PE in October 2017 Currently on Apixiban PLAN: Resumed apixiban, 5mg Bid because no indication for 2.5mg BID S/P total knee arthroplasty, right 06/25/2017 07/08/2017 Overview: Added automatically from request for surgery [id number] Acute pain of right knee 06/25/2017 018 Overview: Added automatically from request for surgery [id number] Patellar dislocation, right, initial encounter 1 06/20/2016 04/21/2017 Status post total knee replacement using cement, right 04/16/2017 04/21/2017 Overview: Added automatically from request for surgery [id number] Acute pain of right knee 04/16/2017 017 Overview: Added automatically from request for surgery [id number] SUMMARY 04/03/2017 04/17/2017 Overview: Admit date: 04/03/2017 Reason for Admission/Observation: Unable to function Presentation: Patient is a 61-year-old female with PMH of MS, osteoarthritis, MRSA and herniated disc of the lumbar spine presenting to the ED via EMS for right knee pain 4 days that started suddenly when the patient fell 4 days ago when her right leg would not move with her other leg. Patient had a knee replacement on the left knee on January 28, 2017. She had her right knee replaced earlier this year. She denies head trauma or LOC. No numbness or tingling in the leg. She normally takes oxycodone at home for pain, but was unable to reach her pain medicine today and has not taken anything for pain today. She is unable to completely flex the knee due to pain. She was actually scheduled for surgery of the right knee today by Dr. Valle and orthopedics, but they would not do the surgery because of her recent fall and increased pain. She has apparently been urinating in a trash can next to her bed because she is unable to get up. She lives at home with her son who has been of minimal help. Hospital course: Consultants: Elieser Valle Needed for Discharge: Disposition: documented as of this encounter (statuses as of 12/03/2021) [facility] History of Past illness Narrative* Problem Noted Date Resolved Date Acute pulmonary embolism 11/26/2017 019 Last Assessment & Plan: Assessment: No signs of PE. Holding Eliquis until ortho staff puts in final recommendations. Hx of PE in October 2017 Currently on Apixiban PLAN: Resumed apixiban, 5mg Bid because no indication for 2.5mg BID S/P total knee arthroplasty, right 06/25/2017 07/08/2017 Overview: Added automatically from request for surgery [id number] Acute pain of right knee 06/25/2017 018 Overview: Added automatically from request for surgery [id number] Patellar dislocation, right, initial encounter 1 06/20/2016 04/21/2017 Status post total knee replacement using cement, right 04/16/2017 04/21/2017 Overview: Added automatically from request for surgery [id number] Acute pain of right knee 04/16/2017 017 Overview: Added automatically from request for surgery [id number] SUMMARY 04/03/2017 04/17/2017 Overview: Admit date: 04/03/2017 Reason for Admission/Observation: Unable to function Presentation: Patient is a 61-year-old female with PMH of MS, osteoarthritis, MRSA and herniated disc of the lumbar spine presenting to the ED via EMS for right knee pain 4 days that started suddenly when the patient fell 4 days ago when her right leg would not move with her other leg. Patient had a knee replacement on the left knee on January 28, 2017. She had her right knee replaced earlier this year. She denies head trauma or LOC. No numbness or tingling in the leg. She normally takes oxycodone at home for pain, but was unable to reach her pain medicine today and has not taken anything for pain today. She is unable to completely flex the knee due to pain. She was actually scheduled for surgery of the right knee today by Dr. Valle and orthopedics, but they would not do the surgery because of her recent fall and increased pain. She has apparently been urinating in a trash can next to her bed because she is unable to get up. She lives at home with her son who has been of minimal help. Hospital course: Consultants: Elieser Valle Needed for Discharge: Disposition: documented as of this encounter (statuses as of 12/09/2021) [facility] History of Past illness Narrative* Problem Noted Date Resolved Date Acute pulmonary embolism 11/26/2017 019 Last Assessment & Plan: Assessment: No signs of PE. Holding Eliquis until ortho staff puts in final recommendations. Hx of PE in October 2017 Currently on Apixiban PLAN: Resumed apixiban, 5mg Bid because no indication for 2.5mg BID S/P total knee arthroplasty, right 06/25/2017 07/08/2017 Overview: Added automatically from request for surgery [id number] Acute pain of right knee 06/25/2017 018 Overview: Added automatically from request for surgery [id number] Patellar dislocation, right, initial encounter 1 06/20/2016 04/21/2017 Status post total knee replacement using cement, right 04/16/2017 04/21/2017 Overview: Added automatically from request for surgery [id number] Acute pain of right knee 04/16/2017 017 Overview: Added automatically from request for surgery [id number] SUMMARY 04/03/2017 04/17/2017 Overview: Admit date: 04/03/2017 Reason for Admission/Observation: Unable to function Presentation: Patient is a 61-year-old female with PMH of MS, osteoarthritis, MRSA and herniated disc of the lumbar spine presenting to the ED via EMS for right knee pain 4 days that started suddenly when the patient fell 4 days ago when her right leg would not move with her other leg. Patient had a knee replacement on the left knee on January 28, 2017. She had her right knee replaced earlier this year. She denies head trauma or LOC. No numbness or tingling in the leg. She normally takes oxycodone at home for pain, but was unable to reach her pain medicine today and has not taken anything for pain today. She is unable to completely flex the knee due to pain. She was actually scheduled for surgery of the right knee today by Dr. Valle and orthopedics, but they would not do the surgery because of her recent fall and increased pain. She has apparently been urinating in a trash can next to her bed because she is unable to get up. She lives at home with her son who has been of minimal help. Hospital course: Consultants: Elieser Valle Needed for Discharge: Disposition: documented as of this encounter (statuses as of 12/23/2021) [facility] History of Past illness Narrative* Problem Noted Date Resolved Date Acute pulmonary embolism 11/26/2017 019 Last Assessment & Plan: Assessment: No signs of PE. Holding Eliquis until ortho staff puts in final recommendations. Hx of PE in October 2017 Currently on Apixiban PLAN: Resumed apixiban, 5mg Bid because no indication for 2.5mg BID S/P total knee arthroplasty, right 06/25/2017 07/08/2017 Overview: Added automatically from request for surgery [id number] Acute pain of right knee 06/25/2017 018 Overview: Added automatically from request for surgery [id number] Patellar dislocation, right, initial encounter 1 06/20/2016 04/21/2017 Status post total knee replacement using cement, right 04/16/2017 04/21/2017 Overview: Added automatically from request for surgery [id number] Acute pain of right knee 04/16/2017 017 Overview: Added automatically from request for surgery [id number] SUMMARY 04/03/2017 04/17/2017 Overview: Admit date: 04/03/2017 Reason for Admission/Observation: Unable to function Presentation: Patient is a 61-year-old female with PMH of MS, osteoarthritis, MRSA and herniated disc of the lumbar spine presenting to the ED via EMS for right knee pain 4 days that started suddenly when the patient fell 4 days ago when her right leg would not move with her other leg. Patient had a knee replacement on the left knee on January 28, 2017. She had her right knee replaced earlier this year. She denies head trauma or LOC. No numbness or tingling in the leg. She normally takes oxycodone at home for pain, but was unable to reach her pain medicine today and has not taken anything for pain today. She is unable to completely flex the knee due to pain. She was actually scheduled for surgery of the right knee today by Dr. Valle and orthopedics, but they would not do the surgery because of her recent fall and increased pain. She has apparently been urinating in a trash can next to her bed because she is unable to get up. She lives at home with her son who has been of minimal help. Hospital course: Consultants: Elieser Valle Needed for Discharge: Disposition: documented as of this encounter (statuses as of 12/30/2021) [facility] History of Past illness Narrative* Problem Noted Date Resolved Date Acute pulmonary embolism 11/26/2017 019 Last Assessment & Plan: Assessment: No signs of PE. Holding Eliquis until ortho staff puts in final recommendations. Hx of PE in October 2017 Currently on Apixiban PLAN: Resumed apixiban, 5mg Bid because no indication for 2.5mg BID S/P total knee arthroplasty, right 06/25/2017 07/08/2017 Overview: Added automatically from request for surgery [id number] Acute pain of right knee 06/25/2017 018 Overview: Added automatically from request for surgery [id number] Patellar dislocation, right, initial encounter 1 06/20/2016 04/21/2017 Status post total knee replacement using cement, right 04/16/2017 04/21/2017 Overview: Added automatically from request for surgery [id number] Acute pain of right knee 04/16/2017 017 Overview: Added automatically from request for surgery [id number] SUMMARY 04/03/2017 04/17/2017 Overview: Admit date: 04/03/2017 Reason for Admission/Observation: Unable to function Presentation: Patient is a 61-year-old female with PMH of MS, osteoarthritis, MRSA and herniated disc of the lumbar spine presenting to the ED via EMS for right knee pain 4 days that started suddenly when the patient fell 4 days ago when her right leg would not move with her other leg. Patient had a knee replacement on the left knee on January 28, 2017. She had her right knee replaced earlier this year. She denies head trauma or LOC. No numbness or tingling in the leg. She normally takes oxycodone at home for pain, but was unable to reach her pain medicine today and has not taken anything for pain today. She is unable to completely flex the knee due to pain. She was actually scheduled for surgery of the right knee today by Dr. Valle and orthopedics, but they would not do the surgery because of her recent fall and increased pain. She has apparently been urinating in a trash can next to her bed because she is unable to get up. She lives at home with her son who has been of minimal help. Hospital course: Consultants: Elieser Valle Needed for Discharge: Disposition: documented as of this encounter (statuses as of 01/07/2022) [facility] History of Past illness Narrative* Problem Noted Date Resolved Date Acute pulmonary embolism 11/26/2017 019 Last Assessment & Plan: Assessment: No signs of PE. Holding Eliquis until ortho staff puts in final recommendations. Hx of PE in October 2017 Currently on Apixiban PLAN: Resumed apixiban, 5mg Bid because no indication for 2.5mg BID S/P total knee arthroplasty, right 06/25/2017 07/08/2017 Overview: Added automatically from request for surgery [id number] Acute pain of right knee 06/25/2017 018 Overview: Added automatically from request for surgery [id number] Patellar dislocation, right, initial encounter 1 06/20/2016 04/21/2017 Status post total knee replacement using cement, right 04/16/2017 04/21/2017 Overview: Added automatically from request for surgery [id number] Acute pain of right knee 04/16/2017 017 Overview: Added automatically from request for surgery [id number] SUMMARY 04/03/2017 04/17/2017 Overview: Admit date: 04/03/2017 Reason for Admission/Observation: Unable to function Presentation: Patient is a 61-year-old female with PMH of MS, osteoarthritis, MRSA and herniated disc of the lumbar spine presenting to the ED via EMS for right knee pain 4 days that started suddenly when the patient fell 4 days ago when her right leg would not move with her other leg. Patient had a knee replacement on the left knee on January 28, 2017. She had her right knee replaced earlier this year. She denies head trauma or LOC. No numbness or tingling in the leg. She normally takes oxycodone at home for pain, but was unable to reach her pain medicine today and has not taken anything for pain today. She is unable to completely flex the knee due to pain. She was actually scheduled for surgery of the right knee today by Dr. Valle and orthopedics, but they would not do the surgery because of her recent fall and increased pain. She has apparently been urinating in a trash can next to her bed because she is unable to get up. She lives at home with her son who has been of minimal help. Hospital course: Consultants: Elieser Valle Needed for Discharge: Disposition: documented as of this encounter (statuses as of 02/05/2022) [facility] History of Past illness Narrative* Problem Noted Date Resolved Date Acute pulmonary embolism 11/26/2017 019 Last Assessment & Plan: Assessment: No signs of PE. Holding Eliquis until ortho staff puts in final recommendations. Hx of PE in October 2017 Currently on Apixiban PLAN: Resumed apixiban, 5mg Bid because no indication for 2.5mg BID S/P total knee arthroplasty, right 06/25/2017 07/08/2017 Overview: Added automatically from request for surgery [id number] Acute pain of right knee 06/25/2017 018 Overview: Added automatically from request for surgery [id number] Patellar dislocation, right, initial encounter 1 06/20/2016 04/21/2017 Status post total knee replacement using cement, right 04/16/2017 04/21/2017 Overview: Added automatically from request for surgery [id number] Acute pain of right knee 04/16/2017 017 Overview: Added automatically from request for surgery [id number] SUMMARY 04/03/2017 04/17/2017 Overview: Admit date: 04/03/2017 Reason for Admission/Observation: Unable to function Presentation: Patient is a 61-year-old female with PMH of MS, osteoarthritis, MRSA and herniated disc of the lumbar spine presenting to the ED via EMS for right knee pain 4 days that started suddenly when the patient fell 4 days ago when her right leg would not move with her other leg. Patient had a knee replacement on the left knee on January 28, 2017. She had her right knee replaced earlier this year. She denies head trauma or LOC. No numbness or tingling in the leg. She normally takes oxycodone at home for pain, but was unable to reach her pain medicine today and has not taken anything for pain today. She is unable to completely flex the knee due to pain. She was actually scheduled for surgery of the right knee today by Dr. Valle and orthopedics, but they would not do the surgery because of her recent fall and increased pain. She has apparently been urinating in a trash can next to her bed because she is unable to get up. She lives at home with her son who has been of minimal help. Hospital course: Consultants: Elieser Valle Needed for Discharge: Disposition: documented as of this encounter (statuses as of 02/10/2022) [facility] History of Past illness Narrative* Problem Noted Date Resolved Date Acute pulmonary embolism 11/26/2017 019 Last Assessment & Plan: Assessment: No signs of PE. Holding Eliquis until ortho staff puts in final recommendations. Hx of PE in October 2017 Currently on Apixiban PLAN: Resumed apixiban, 5mg Bid because no indication for 2.5mg BID S/P total knee arthroplasty, right 06/25/2017 07/08/2017 Overview: Added automatically from request for surgery [id number] Acute pain of right knee 06/25/2017 018 Overview: Added automatically from request for surgery [id number] Patellar dislocation, right, initial encounter 1 06/20/2016 04/21/2017 Status post total knee replacement using cement, right 04/16/2017 04/21/2017 Overview: Added automatically from request for surgery [id number] Acute pain of right knee 04/16/2017 017 Overview: Added automatically from request for surgery [id number] SUMMARY 04/03/2017 04/17/2017 Overview: Admit date: 04/03/2017 Reason for Admission/Observation: Unable to function Presentation: Patient is a 61-year-old female with PMH of MS, osteoarthritis, MRSA and herniated disc of the lumbar spine presenting to the ED via EMS for right knee pain 4 days that started suddenly when the patient fell 4 days ago when her right leg would not move with her other leg. Patient had a knee replacement on the left knee on January 28, 2017. She had her right knee replaced earlier this year. She denies head trauma or LOC. No numbness or tingling in the leg. She normally takes oxycodone at home for pain, but was unable to reach her pain medicine today and has not taken anything for pain today. She is unable to completely flex the knee due to pain. She was actually scheduled for surgery of the right knee today by Dr. Valle and orthopedics, but they would not do the surgery because of her recent fall and increased pain. She has apparently been urinating in a trash can next to her bed because she is unable to get up. She lives at home with her son who has been of minimal help. Hospital course: Consultants: Elieser Valle Needed for Discharge: Disposition: documented as of this encounter (statuses as of 02/12/2022) [facility] History of Past illness Narrative* Problem Noted Date Resolved Date Acute pulmonary embolism 11/26/2017 019 Last Assessment & Plan: Assessment: No signs of PE. Holding Eliquis until ortho staff puts in final recommendations. Hx of PE in October 2017 Currently on Apixiban PLAN: Resumed apixiban, 5mg Bid because no indication for 2.5mg BID S/P total knee arthroplasty, right 06/25/2017 07/08/2017 Overview: Added automatically from request for surgery [id number] Acute pain of right knee 06/25/2017 018 Overview: Added automatically from request for surgery [id number] Patellar dislocation, right, initial encounter 1 06/20/2016 04/21/2017 Status post total knee replacement using cement, right 04/16/2017 04/21/2017 Overview: Added automatically from request for surgery [id number] Acute pain of right knee 04/16/2017 017 Overview: Added automatically from request for surgery [id number] SUMMARY 04/03/2017 04/17/2017 Overview: Admit date: 04/03/2017 Reason for Admission/Observation: Unable to function Presentation: Patient is a 61-year-old female with PMH of MS, osteoarthritis, MRSA and herniated disc of the lumbar spine presenting to the ED via EMS for right knee pain 4 days that started suddenly when the patient fell 4 days ago when her right leg would not move with her other leg. Patient had a knee replacement on the left knee on January 28, 2017. She had her right knee replaced earlier this year. She denies head trauma or LOC. No numbness or tingling in the leg. She normally takes oxycodone at home for pain, but was unable to reach her pain medicine today and has not taken anything for pain today. She is unable to completely flex the knee due to pain. She was actually scheduled for surgery of the right knee today by Dr. Valle and orthopedics, but they would not do the surgery because of her recent fall and increased pain. She has apparently been urinating in a trash can next to her bed because she is unable to get up. She lives at home with her son who has been of minimal help. Hospital course: Consultants: Elieser Valle Needed for Discharge: Disposition: documented as of this encounter (statuses as of 02/13/2022) [facility] History of Past illness Narrative* Problem Noted Date Resolved Date Acute pulmonary embolism 11/26/2017 019 Last Assessment & Plan: Assessment: No signs of PE. Holding Eliquis until ortho staff puts in final recommendations. Hx of PE in October 2017 Currently on Apixiban PLAN: Resumed apixiban, 5mg Bid because no indication for 2.5mg BID S/P total knee arthroplasty, right 06/25/2017 07/08/2017 Overview: Added automatically from request for surgery [id number] Acute pain of right knee 06/25/2017 018 Overview: Added automatically from request for surgery [id number] Patellar dislocation, right, initial encounter 1 06/20/2016 04/21/2017 Status post total knee replacement using cement, right 04/16/2017 04/21/2017 Overview: Added automatically from request for surgery [id number] Acute pain of right knee 04/16/2017 017 Overview: Added automatically from request for surgery [id number] SUMMARY 04/03/2017 04/17/2017 Overview: Admit date: 04/03/2017 Reason for Admission/Observation: Unable to function Presentation: Patient is a 61-year-old female with PMH of MS, osteoarthritis, MRSA and herniated disc of the lumbar spine presenting to the ED via EMS for right knee pain 4 days that started suddenly when the patient fell 4 days ago when her right leg would not move with her other leg. Patient had a knee replacement on the left knee on January 28, 2017. She had her right knee replaced earlier this year. She denies head trauma or LOC. No numbness or tingling in the leg. She normally takes oxycodone at home for pain, but was unable to reach her pain medicine today and has not taken anything for pain today. She is unable to completely flex the knee due to pain. She was actually scheduled for surgery of the right knee today by Dr. Valle and orthopedics, but they would not do the surgery because of her recent fall and increased pain. She has apparently been urinating in a trash can next to her bed because she is unable to get up. She lives at home with her son who has been of minimal help. Hospital course: Consultants: Elieser Valle Needed for Discharge: Disposition: documented as of this encounter (statuses as of 03/06/2022) [facility] History of Past illness Narrative* Problem Noted Date Resolved Date Acute pulmonary embolism 11/26/2017 019 Last Assessment & Plan: Assessment: No signs of PE. Holding Eliquis until ortho staff puts in final recommendations. Hx of PE in October 2017 Currently on Apixiban PLAN: Resumed apixiban, 5mg Bid because no indication for 2.5mg BID S/P total knee arthroplasty, right 06/25/2017 07/08/2017 Overview: Added automatically from request for surgery [id number] Acute pain of right knee 06/25/2017 018 Overview: Added automatically from request for surgery [id number] Patellar dislocation, right, initial encounter 1 06/20/2016 04/21/2017 Status post total knee replacement using cement, right 04/16/2017 04/21/2017 Overview: Added automatically from request for surgery [id number] Acute pain of right knee 04/16/2017 017 Overview: Added automatically from request for surgery [id number] SUMMARY 04/03/2017 04/17/2017 Overview: Admit date: 04/03/2017 Reason for Admission/Observation: Unable to function Presentation: Patient is a 61-year-old female with PMH of MS, osteoarthritis, MRSA and herniated disc of the lumbar spine presenting to the ED via EMS for right knee pain 4 days that started suddenly when the patient fell 4 days ago when her right leg would not move with her other leg. Patient had a knee replacement on the left knee on January 28, 2017. She had her right knee replaced earlier this year. She denies head trauma or LOC. No numbness or tingling in the leg. She normally takes oxycodone at home for pain, but was unable to reach her pain medicine today and has not taken anything for pain today. She is unable to completely flex the knee due to pain. She was actually scheduled for surgery of the right knee today by Dr. Valle and orthopedics, but they would not do the surgery because of her recent fall and increased pain. She has apparently been urinating in a trash can next to her bed because she is unable to get up. She lives at home with her son who has been of minimal help. Hospital course: Consultants: Elieser Valle Needed for Discharge: Disposition: documented as of this encounter (statuses as of 03/10/2022) [facility] History of Past illness Narrative* Problem Noted Date Resolved Date Acute pulmonary embolism 11/26/2017 019 Last Assessment & Plan: Assessment: No signs of PE. Holding Eliquis until ortho staff puts in final recommendations. Hx of PE in October 2017 Currently on Apixiban PLAN: Resumed apixiban, 5mg Bid because no indication for 2.5mg BID S/P total knee arthroplasty, right 06/25/2017 07/08/2017 Overview: Added automatically from request for surgery [id number] Acute pain of right knee 06/25/2017 018 Overview: Added automatically from request for surgery [id number] Patellar dislocation, right, initial encounter 1 06/20/2016 04/21/2017 Status post total knee replacement using cement, right 04/16/2017 04/21/2017 Overview: Added automatically from request for surgery [id number] Acute pain of right knee 04/16/2017 017 Overview: Added automatically from request for surgery [id number] SUMMARY 04/03/2017 04/17/2017 Overview: Admit date: 04/03/2017 Reason for Admission/Observation: Unable to function Presentation: Patient is a 61-year-old female with PMH of MS, osteoarthritis, MRSA and herniated disc of the lumbar spine presenting to the ED via EMS for right knee pain 4 days that started suddenly when the patient fell 4 days ago when her right leg would not move with her other leg. Patient had a knee replacement on the left knee on January 28, 2017. She had her right knee replaced earlier this year. She denies head trauma or LOC. No numbness or tingling in the leg. She normally takes oxycodone at home for pain, but was unable to reach her pain medicine today and has not taken anything for pain today. She is unable to completely flex the knee due to pain. She was actually scheduled for surgery of the right knee today by Dr. Valle and orthopedics, but they would not do the surgery because of her recent fall and increased pain. She has apparently been urinating in a trash can next to her bed because she is unable to get up. She lives at home with her son who has been of minimal help. Hospital course: Consultants: Elieser Valle Needed for Discharge: Disposition: documented as of this encounter (statuses as of 03/12/2022) [facility] History of Past illness Narrative* Problem Noted Date Resolved Date Acute pulmonary embolism 11/26/2017 019 Last Assessment & Plan: Assessment: No signs of PE. Holding Eliquis until ortho staff puts in final recommendations. Hx of PE in October 2017 Currently on Apixiban PLAN: Resumed apixiban, 5mg Bid because no indication for 2.5mg BID S/P total knee arthroplasty, right 06/25/2017 07/08/2017 Overview: Added automatically from request for surgery [id number] Acute pain of right knee 06/25/2017 018 Overview: Added automatically from request for surgery [id number] Patellar dislocation, right, initial encounter 1 06/20/2016 04/21/2017 Status post total knee replacement using cement, right 04/16/2017 04/21/2017 Overview: Added automatically from request for surgery [id number] Acute pain of right knee 04/16/2017 017 Overview: Added automatically from request for surgery [id number] SUMMARY 04/03/2017 04/17/2017 Overview: Admit date: 04/03/2017 Reason for Admission/Observation: Unable to function Presentation: Patient is a 61-year-old female with PMH of MS, osteoarthritis, MRSA and herniated disc of the lumbar spine presenting to the ED via EMS for right knee pain 4 days that started suddenly when the patient fell 4 days ago when her right leg would not move with her other leg. Patient had a knee replacement on the left knee on January 28, 2017. She had her right knee replaced earlier this year. She denies head trauma or LOC. No numbness or tingling in the leg. She normally takes oxycodone at home for pain, but was unable to reach her pain medicine today and has not taken anything for pain today. She is unable to completely flex the knee due to pain. She was actually scheduled for surgery of the right knee today by Dr. Valle and orthopedics, but they would not do the surgery because of her recent fall and increased pain. She has apparently been urinating in a trash can next to her bed because she is unable to get up. She lives at home with her son who has been of minimal help. Hospital course: Consultants: Elieser Valle Needed for Discharge: Disposition: documented as of this encounter (statuses as of 03/17/2022) [facility] History of Past illness Narrative* Problem Noted Date Resolved Date Acute pulmonary embolism 11/26/2017 019 Last Assessment & Plan: Assessment: No signs of PE. Holding Eliquis until ortho staff puts in final recommendations. Hx of PE in October 2017 Currently on Apixiban PLAN: Resumed apixiban, 5mg Bid because no indication for 2.5mg BID S/P total knee arthroplasty, right 06/25/2017 07/08/2017 Overview: Added automatically from request for surgery [id number] Acute pain of right knee 06/25/2017 018 Overview: Added automatically from request for surgery [id number] Patellar dislocation, right, initial encounter 1 06/20/2016 04/21/2017 Status post total knee replacement using cement, right 04/16/2017 04/21/2017 Overview: Added automatically from request for surgery [id number] Acute pain of right knee 04/16/2017 017 Overview: Added automatically from request for surgery [id number] SUMMARY 04/03/2017 04/17/2017 Overview: Admit date: 04/03/2017 Reason for Admission/Observation: Unable to function Presentation: Patient is a 61-year-old female with PMH of MS, osteoarthritis, MRSA and herniated disc of the lumbar spine presenting to the ED via EMS for right knee pain 4 days that started suddenly when the patient fell 4 days ago when her right leg would not move with her other leg. Patient had a knee replacement on the left knee on January 28, 2017. She had her right knee replaced earlier this year. She denies head trauma or LOC. No numbness or tingling in the leg. She normally takes oxycodone at home for pain, but was unable to reach her pain medicine today and has not taken anything for pain today. She is unable to completely flex the knee due to pain. She was actually scheduled for surgery of the right knee today by Dr. Valle and orthopedics, but they would not do the surgery because of her recent fall and increased pain. She has apparently been urinating in a trash can next to her bed because she is unable to get up. She lives at home with her son who has been of minimal help. Hospital course: Consultants: Elieser Valle Needed for Discharge: Disposition: documented as of this encounter (statuses as of 03/18/2022) [facility] History of Past illness Narrative* Problem Noted Date Resolved Date Acute pulmonary embolism 11/26/2017 019 Last Assessment & Plan: Assessment: No signs of PE. Holding Eliquis until ortho staff puts in final recommendations. Hx of PE in October 2017 Currently on Apixiban PLAN: Resumed apixiban, 5mg Bid because no indication for 2.5mg BID S/P total knee arthroplasty, right 06/25/2017 07/08/2017 Overview: Added automatically from request for surgery [id number] Acute pain of right knee 06/25/2017 018 Overview: Added automatically from request for surgery [id number] Patellar dislocation, right, initial encounter 1 06/20/2016 04/21/2017 Status post total knee replacement using cement, right 04/16/2017 04/21/2017 Overview: Added automatically from request for surgery [id number] Acute pain of right knee 04/16/2017 017 Overview: Added automatically from request for surgery [id number] SUMMARY 04/03/2017 04/17/2017 Overview: Admit date: 04/03/2017 Reason for Admission/Observation: Unable to function Presentation: Patient is a 61-year-old female with PMH of MS, osteoarthritis, MRSA and herniated disc of the lumbar spine presenting to the ED via EMS for right knee pain 4 days that started suddenly when the patient fell 4 days ago when her right leg would not move with her other leg. Patient had a knee replacement on the left knee on January 28, 2017. She had her right knee replaced earlier this year. She denies head trauma or LOC. No numbness or tingling in the leg. She normally takes oxycodone at home for pain, but was unable to reach her pain medicine today and has not taken anything for pain today. She is unable to completely flex the knee due to pain. She was actually scheduled for surgery of the right knee today by Dr. Valle and orthopedics, but they would not do the surgery because of her recent fall and increased pain. She has apparently been urinating in a trash can next to her bed because she is unable to get up. She lives at home with her son who has been of minimal help. Hospital course: Consultants: Elieser Valle Needed for Discharge: Disposition: documented as of this encounter (statuses as of 03/24/2022) [facility] History of Past illness Narrative* Problem Noted Date Resolved Date Acute pulmonary embolism 11/26/2017 019 Last Assessment & Plan: Assessment: No signs of PE. Holding Eliquis until ortho staff puts in final recommendations. Hx of PE in October 2017 Currently on Apixiban PLAN: Resumed apixiban, 5mg Bid because no indication for 2.5mg BID S/P total knee arthroplasty, right 06/25/2017 07/08/2017 Overview: Added automatically from request for surgery [id number] Acute pain of right knee 06/25/2017 018 Overview: Added automatically from request for surgery [id number] Patellar dislocation, right, initial encounter 1 06/20/2016 04/21/2017 Status post total knee replacement using cement, right 04/16/2017 04/21/2017 Overview: Added automatically from request for surgery [id number] Acute pain of right knee 04/16/2017 017 Overview: Added automatically from request for surgery [id number] SUMMARY 04/03/2017 04/17/2017 Overview: Admit date: 04/03/2017 Reason for Admission/Observation: Unable to function Presentation: Patient is a 61-year-old female with PMH of MS, osteoarthritis, MRSA and herniated disc of the lumbar spine presenting to the ED via EMS for right knee pain 4 days that started suddenly when the patient fell 4 days ago when her right leg would not move with her other leg. Patient had a knee replacement on the left knee on January 28, 2017. She had her right knee replaced earlier this year. She denies head trauma or LOC. No numbness or tingling in the leg. She normally takes oxycodone at home for pain, but was unable to reach her pain medicine today and has not taken anything for pain today. She is unable to completely flex the knee due to pain. She was actually scheduled for surgery of the right knee today by Dr. Valle and orthopedics, but they would not do the surgery because of her recent fall and increased pain. She has apparently been urinating in a trash can next to her bed because she is unable to get up. She lives at home with her son who has been of minimal help. Hospital course: Consultants: Elieser Valle Needed for Discharge: Disposition: documented as of this encounter (statuses as of 05/13/2022) [facility] History of Past illness Narrative* Problem Noted Date Resolved Date Acute pulmonary embolism 11/26/2017 019 Last Assessment & Plan: Assessment: No signs of PE. Holding Eliquis until ortho staff puts in final recommendations. Hx of PE in October 2017 Currently on Apixiban PLAN: Resumed apixiban, 5mg Bid because no indication for 2.5mg BID S/P total knee arthroplasty, right 06/25/2017 07/08/2017 Overview: Added automatically from request for surgery [id number] Acute pain of right knee 06/25/2017 018 Overview: Added automatically from request for surgery [id number] Patellar dislocation, right, initial encounter 1 06/20/2016 04/21/2017 Status post total knee replacement using cement, right 04/16/2017 04/21/2017 Overview: Added automatically from request for surgery [id number] Acute pain of right knee 04/16/2017 017 Overview: Added automatically from request for surgery [id number] SUMMARY 04/03/2017 04/17/2017 Overview: Admit date: 04/03/2017 Reason for Admission/Observation: Unable to function Presentation: Patient is a 61-year-old female with PMH of MS, osteoarthritis, MRSA and herniated disc of the lumbar spine presenting to the ED via EMS for right knee pain 4 days that started suddenly when the patient fell 4 days ago when her right leg would not move with her other leg. Patient had a knee replacement on the left knee on January 28, 2017. She had her right knee replaced earlier this year. She denies head trauma or LOC. No numbness or tingling in the leg. She normally takes oxycodone at home for pain, but was unable to reach her pain medicine today and has not taken anything for pain today. She is unable to completely flex the knee due to pain. She was actually scheduled for surgery of the right knee today by Dr. Valle and orthopedics, but they would not do the surgery because of her recent fall and increased pain. She has apparently been urinating in a trash can next to her bed because she is unable to get up. She lives at home with her son who has been of minimal help. Hospital course: Consultants: Elieser Valle Needed for Discharge: Disposition: documented as of this encounter (statuses as of 05/21/2022) [facility] History of Past illness Narrative* Problem Noted Date Resolved Date Acute pulmonary embolism 11/26/2017 019 Last Assessment & Plan: Assessment: No signs of PE. Holding Eliquis until ortho staff puts in final recommendations. Hx of PE in October 2017 Currently on Apixiban PLAN: Resumed apixiban, 5mg Bid because no indication for 2.5mg BID S/P total knee arthroplasty, right 06/25/2017 07/08/2017 Overview: Added automatically from request for surgery [id number] Acute pain of right knee 06/25/2017 018 Overview: Added automatically from request for surgery [id number] Patellar dislocation, right, initial encounter 1 06/20/2016 04/21/2017 Status post total knee replacement using cement, right 04/16/2017 04/21/2017 Overview: Added automatically from request for surgery [id number] Acute pain of right knee 04/16/2017 017 Overview: Added automatically from request for surgery [id number] SUMMARY 04/03/2017 04/17/2017 Overview: Admit date: 04/03/2017 Reason for Admission/Observation: Unable to function Presentation: Patient is a 61-year-old female with PMH of MS, osteoarthritis, MRSA and herniated disc of the lumbar spine presenting to the ED via EMS for right knee pain 4 days that started suddenly when the patient fell 4 days ago when her right leg would not move with her other leg. Patient had a knee replacement on the left knee on January 28, 2017. She had her right knee replaced earlier this year. She denies head trauma or LOC. No numbness or tingling in the leg. She normally takes oxycodone at home for pain, but was unable to reach her pain medicine today and has not taken anything for pain today. She is unable to completely flex the knee due to pain. She was actually scheduled for surgery of the right knee today by Dr. Valle and orthopedics, but they would not do the surgery because of her recent fall and increased pain. She has apparently been urinating in a trash can next to her bed because she is unable to get up. She lives at home with her son who has been of minimal help. Hospital course: Consultants: Elieser Valle Needed for Discharge: Disposition: documented as of this encounter (statuses as of 05/23/2022) [facility] History of Past illness Narrative* Problem Noted Date Resolved Date Acute pulmonary embolism 11/26/2017 019 Last Assessment & Plan: Assessment: No signs of PE. Holding Eliquis until ortho staff puts in final recommendations. Hx of PE in October 2017 Currently on Apixiban PLAN: Resumed apixiban, 5mg Bid because no indication for 2.5mg BID S/P total knee arthroplasty, right 06/25/2017 07/08/2017 Overview: Added automatically from request for surgery [id number] Acute pain of right knee 06/25/2017 018 Overview: Added automatically from request for surgery [id number] Patellar dislocation, right, initial encounter 1 06/20/2016 04/21/2017 Status post total knee replacement using cement, right 04/16/2017 04/21/2017 Overview: Added automatically from request for surgery [id number] Acute pain of right knee 04/16/2017 017 Overview: Added automatically from request for surgery [id number] SUMMARY 04/03/2017 04/17/2017 Overview: Admit date: 04/03/2017 Reason for Admission/Observation: Unable to function Presentation: Patient is a 61-year-old female with PMH of MS, osteoarthritis, MRSA and herniated disc of the lumbar spine presenting to the ED via EMS for right knee pain 4 days that started suddenly when the patient fell 4 days ago when her right leg would not move with her other leg. Patient had a knee replacement on the left knee on January 28, 2017. She had her right knee replaced earlier this year. She denies head trauma or LOC. No numbness or tingling in the leg. She normally takes oxycodone at home for pain, but was unable to reach her pain medicine today and has not taken anything for pain today. She is unable to completely flex the knee due to pain. She was actually scheduled for surgery of the right knee today by Dr. Valle and orthopedics, but they would not do the surgery because of her recent fall and increased pain. She has apparently been urinating in a trash can next to her bed because she is unable to get up. She lives at home with her son who has been of minimal help. Hospital course: Consultants: Elieser Valle Needed for Discharge: Disposition: documented as of this encounter (statuses as of 06/13/2022) [facility] History of Past illness Narrative* Problem Noted Date Resolved Date Acute pulmonary embolism 11/26/2017 019 Last Assessment & Plan: Assessment: No signs of PE. Holding Eliquis until ortho staff puts in final recommendations. Hx of PE in October 2017 Currently on Apixiban PLAN: Resumed apixiban, 5mg Bid because no indication for 2.5mg BID S/P total knee arthroplasty, right 06/25/2017 07/08/2017 Overview: Added automatically from request for surgery [id number] Acute pain of right knee 06/25/2017 018 Overview: Added automatically from request for surgery [id number] Patellar dislocation, right, initial encounter 1 06/20/2016 04/21/2017 Status post total knee replacement using cement, right 04/16/2017 04/21/2017 Overview: Added automatically from request for surgery [id number] Acute pain of right knee 04/16/2017 017 Overview: Added automatically from request for surgery [id number] SUMMARY 04/03/2017 04/17/2017 Overview: Admit date: 04/03/2017 Reason for Admission/Observation: Unable to function Presentation: Patient is a 61-year-old female with PMH of MS, osteoarthritis, MRSA and herniated disc of the lumbar spine presenting to the ED via EMS for right knee pain 4 days that started suddenly when the patient fell 4 days ago when her right leg would not move with her other leg. Patient had a knee replacement on the left knee on January 28, 2017. She had her right knee replaced earlier this year. She denies head trauma or LOC. No numbness or tingling in the leg. She normally takes oxycodone at home for pain, but was unable to reach her pain medicine today and has not taken anything for pain today. She is unable to completely flex the knee due to pain. She was actually scheduled for surgery of the right knee today by Dr. Valle and orthopedics, but they would not do the surgery because of her recent fall and increased pain. She has apparently been urinating in a trash can next to her bed because she is unable to get up. She lives at home with her son who has been of minimal help. Hospital course: Consultants: Elieser Valle Needed for Discharge: Disposition: documented as of this encounter (statuses as of 06/18/2022) [facility] History of Past illness Narrative* Problem Noted Date Resolved Date Acute pulmonary embolism 11/26/2017 019 Last Assessment & Plan: Assessment: No signs of PE. Holding Eliquis until ortho staff puts in final recommendations. Hx of PE in October 2017 Currently on Apixiban PLAN: Resumed apixiban, 5mg Bid because no indication for 2.5mg BID S/P total knee arthroplasty, right 06/25/2017 07/08/2017 Overview: Added automatically from request for surgery [id number] Acute pain of right knee 06/25/2017 018 Overview: Added automatically from request for surgery [id number] Patellar dislocation, right, initial encounter 1 06/20/2016 04/21/2017 Status post total knee replacement using cement, right 04/16/2017 04/21/2017 Overview: Added automatically from request for surgery [id number] Acute pain of right knee 04/16/2017 017 Overview: Added automatically from request for surgery [id number] SUMMARY 04/03/2017 04/17/2017 Overview: Admit date: 04/03/2017 Reason for Admission/Observation: Unable to function Presentation: Patient is a 61-year-old female with PMH of MS, osteoarthritis, MRSA and herniated disc of the lumbar spine presenting to the ED via EMS for right knee pain 4 days that started suddenly when the patient fell 4 days ago when her right leg would not move with her other leg. Patient had a knee replacement on the left knee on January 28, 2017. She had her right knee replaced earlier this year. She denies head trauma or LOC. No numbness or tingling in the leg. She normally takes oxycodone at home for pain, but was unable to reach her pain medicine today and has not taken anything for pain today. She is unable to completely flex the knee due to pain. She was actually scheduled for surgery of the right knee today by Dr. Valle and orthopedics, but they would not do the surgery because of her recent fall and increased pain. She has apparently been urinating in a trash can next to her bed because she is unable to get up. She lives at home with her son who has been of minimal help. Hospital course: Consultants: Elieser Valle Needed for Discharge: Disposition: documented as of this encounter (statuses as of 06/25/2022) [facility] History of Past illness Narrative* Problem Noted Date Resolved Date Acute pulmonary embolism 11/26/2017 019 Last Assessment & Plan: Assessment: No signs of PE. Holding Eliquis until ortho staff puts in final recommendations. Hx of PE in October 2017 Currently on Apixiban PLAN: Resumed apixiban, 5mg Bid because no indication for 2.5mg BID S/P total knee arthroplasty, right 06/25/2017 07/08/2017 Overview: Added automatically from request for surgery [id number] Acute pain of right knee 06/25/2017 018 Overview: Added automatically from request for surgery [id number] Patellar dislocation, right, initial encounter 1 06/20/2016 04/21/2017 Status post total knee replacement using cement, right 04/16/2017 04/21/2017 Overview: Added automatically from request for surgery [id number] Acute pain of right knee 04/16/2017 017 Overview: Added automatically from request for surgery [id number] SUMMARY 04/03/2017 04/17/2017 Overview: Admit date: 04/03/2017 Reason for Admission/Observation: Unable to function Presentation: Patient is a 61-year-old female with PMH of MS, osteoarthritis, MRSA and herniated disc of the lumbar spine presenting to the ED via EMS for right knee pain 4 days that started suddenly when the patient fell 4 days ago when her right leg would not move with her other leg. Patient had a knee replacement on the left knee on January 28, 2017. She had her right knee replaced earlier this year. She denies head trauma or LOC. No numbness or tingling in the leg. She normally takes oxycodone at home for pain, but was unable to reach her pain medicine today and has not taken anything for pain today. She is unable to completely flex the knee due to pain. She was actually scheduled for surgery of the right knee today by Dr. Valle and orthopedics, but they would not do the surgery because of her recent fall and increased pain. She has apparently been urinating in a trash can next to her bed because she is unable to get up. She lives at home with her son who has been of minimal help. Hospital course: Consultants: Elieser Valle Needed for Discharge: Disposition: documented as of this encounter (statuses as of 07/05/2022) [facility] History of Past illness Narrative* Problem Noted Date Resolved Date Acute pulmonary embolism 11/26/2017 019 Last Assessment & Plan: Assessment: No signs of PE. Holding Eliquis until ortho staff puts in final recommendations. Hx of PE in October 2017 Currently on Apixiban PLAN: Resumed apixiban, 5mg Bid because no indication for 2.5mg BID S/P total knee arthroplasty, right 06/25/2017 07/08/2017 Overview: Added automatically from request for surgery [id number] Acute pain of right knee 06/25/2017 018 Overview: Added automatically from request for surgery [id number] Patellar dislocation, right, initial encounter 1 06/20/2016 04/21/2017 Status post total knee replacement using cement, right 04/16/2017 04/21/2017 Overview: Added automatically from request for surgery [id number] Acute pain of right knee 04/16/2017 017 Overview: Added automatically from request for surgery [id number] SUMMARY 04/03/2017 04/17/2017 Overview: Admit date: 04/03/2017 Reason for Admission/Observation: Unable to function Presentation: Patient is a 61-year-old female with PMH of MS, osteoarthritis, MRSA and herniated disc of the lumbar spine presenting to the ED via EMS for right knee pain 4 days that started suddenly when the patient fell 4 days ago when her right leg would not move with her other leg. Patient had a knee replacement on the left knee on January 28, 2017. She had her right knee replaced earlier this year. She denies head trauma or LOC. No numbness or tingling in the leg. She normally takes oxycodone at home for pain, but was unable to reach her pain medicine today and has not taken anything for pain today. She is unable to completely flex the knee due to pain. She was actually scheduled for surgery of the right knee today by Dr. Valle and orthopedics, but they would not do the surgery because of her recent fall and increased pain. She has apparently been urinating in a trash can next to her bed because she is unable to get up. She lives at home with her son who has been of minimal help. Hospital course: Consultants: Elieser Valle Needed for Discharge: Disposition: documented as of this encounter (statuses as of 07/09/2022) [facility] History of Past illness Narrative* Problem Noted Date Resolved Date Acute pulmonary embolism 11/26/2017 019 Last Assessment & Plan: Assessment: No signs of PE. Holding Eliquis until ortho staff puts in final recommendations. Hx of PE in October 2017 Currently on Apixiban PLAN: Resumed apixiban, 5mg Bid because no indication for 2.5mg BID S/P total knee arthroplasty, right 06/25/2017 07/08/2017 Overview: Added automatically from request for surgery [id number] Acute pain of right knee 06/25/2017 018 Overview: Added automatically from request for surgery [id number] Patellar dislocation, right, initial encounter 1 06/20/2016 04/21/2017 Status post total knee replacement using cement, right 04/16/2017 04/21/2017 Overview: Added automatically from request for surgery [id number] Acute pain of right knee 04/16/2017 017 Overview: Added automatically from request for surgery [id number] SUMMARY 04/03/2017 04/17/2017 Overview: Admit date: 04/03/2017 Reason for Admission/Observation: Unable to function Presentation: Patient is a 61-year-old female with PMH of MS, osteoarthritis, MRSA and herniated disc of the lumbar spine presenting to the ED via EMS for right knee pain 4 days that started suddenly when the patient fell 4 days ago when her right leg would not move with her other leg. Patient had a knee replacement on the left knee on January 28, 2017. She had her right knee replaced earlier this year. She denies head trauma or LOC. No numbness or tingling in the leg. She normally takes oxycodone at home for pain, but was unable to reach her pain medicine today and has not taken anything for pain today. She is unable to completely flex the knee due to pain. She was actually scheduled for surgery of the right knee today by Dr. Valle and orthopedics, but they would not do the surgery because of her recent fall and increased pain. She has apparently been urinating in a trash can next to her bed because she is unable to get up. She lives at home with her son who has been of minimal help. Hospital course: Consultants: Elieser Valle Needed for Discharge: Disposition: documented as of this encounter (statuses as of 07/16/2022) [facility] History of Past illness Narrative* Problem Noted Date Resolved Date Acute pulmonary embolism 11/26/2017 019 Last Assessment & Plan: Assessment: No signs of PE. Holding Eliquis until ortho staff puts in final recommendations. Hx of PE in October 2017 Currently on Apixiban PLAN: Resumed apixiban, 5mg Bid because no indication for 2.5mg BID S/P total knee arthroplasty, right 06/25/2017 07/08/2017 Overview: Added automatically from request for surgery [id number] Acute pain of right knee 06/25/2017 018 Overview: Added automatically from request for surgery [id number] Patellar dislocation, right, initial encounter 1 06/20/2016 04/21/2017 Status post total knee replacement using cement, right 04/16/2017 04/21/2017 Overview: Added automatically from request for surgery [id number] Acute pain of right knee 04/16/2017 017 Overview: Added automatically from request for surgery [id number] SUMMARY 04/03/2017 04/17/2017 Overview: Admit date: 04/03/2017 Reason for Admission/Observation: Unable to function Presentation: Patient is a 61-year-old female with PMH of MS, osteoarthritis, MRSA and herniated disc of the lumbar spine presenting to the ED via EMS for right knee pain 4 days that started suddenly when the patient fell 4 days ago when her right leg would not move with her other leg. Patient had a knee replacement on the left knee on January 28, 2017. She had her right knee replaced earlier this year. She denies head trauma or LOC. No numbness or tingling in the leg. She normally takes oxycodone at home for pain, but was unable to reach her pain medicine today and has not taken anything for pain today. She is unable to completely flex the knee due to pain. She was actually scheduled for surgery of the right knee today by Dr. Valle and orthopedics, but they would not do the surgery because of her recent fall and increased pain. She has apparently been urinating in a trash can next to her bed because she is unable to get up. She lives at home with her son who has been of minimal help. Hospital course: Consultants: Elieser Valle Needed for Discharge: Disposition: documented as of this encounter (statuses as of 07/22/2022) [facility] History of Past illness Narrative* Problem Noted Date Resolved Date Acute pulmonary embolism 11/26/2017 019 Last Assessment & Plan: Assessment: No signs of PE. Holding Eliquis until ortho staff puts in final recommendations. Hx of PE in October 2017 Currently on Apixiban PLAN: Resumed apixiban, 5mg Bid because no indication for 2.5mg BID S/P total knee arthroplasty, right 06/25/2017 07/08/2017 Overview: Added automatically from request for surgery [id number] Acute pain of right knee 06/25/2017 018 Overview: Added automatically from request for surgery [id number] Patellar dislocation, right, initial encounter 1 06/20/2016 04/21/2017 Status post total knee replacement using cement, right 04/16/2017 04/21/2017 Overview: Added automatically from request for surgery [id number] Acute pain of right knee 04/16/2017 017 Overview: Added automatically from request for surgery [id number] SUMMARY 04/03/2017 04/17/2017 Overview: Admit date: 04/03/2017 Reason for Admission/Observation: Unable to function Presentation: Patient is a 61-year-old female with PMH of MS, osteoarthritis, MRSA and herniated disc of the lumbar spine presenting to the ED via EMS for right knee pain 4 days that started suddenly when the patient fell 4 days ago when her right leg would not move with her other leg. Patient had a knee replacement on the left knee on January 28, 2017. She had her right knee replaced earlier this year. She denies head trauma or LOC. No numbness or tingling in the leg. She normally takes oxycodone at home for pain, but was unable to reach her pain medicine today and has not taken anything for pain today. She is unable to completely flex the knee due to pain. She was actually scheduled for surgery of the right knee today by Dr. Valle and orthopedics, but they would not do the surgery because of her recent fall and increased pain. She has apparently been urinating in a trash can next to her bed because she is unable to get up. She lives at home with her son who has been of minimal help. Hospital course: Consultants: Elieser Valle Needed for Discharge: Disposition: documented as of this encounter (statuses as of 07/28/2022) [facility] History of Past illness Narrative* Problem Noted Date Resolved Date Acute pulmonary embolism 11/26/2017 019 Last Assessment & Plan: Assessment: No signs of PE. Holding Eliquis until ortho staff puts in final recommendations. Hx of PE in October 2017 Currently on Apixiban PLAN: Resumed apixiban, 5mg Bid because no indication for 2.5mg BID S/P total knee arthroplasty, right 06/25/2017 07/08/2017 Overview: Added automatically from request for surgery [id number] Acute pain of right knee 06/25/2017 018 Overview: Added automatically from request for surgery [id number] Patellar dislocation, right, initial encounter 1 06/20/2016 04/21/2017 Status post total knee replacement using cement, right 04/16/2017 04/21/2017 Overview: Added automatically from request for surgery [id number] Acute pain of right knee 04/16/2017 017 Overview: Added automatically from request for surgery [id number] SUMMARY 04/03/2017 04/17/2017 Overview: Admit date: 04/03/2017 Reason for Admission/Observation: Unable to function Presentation: Patient is a 61-year-old female with PMH of MS, osteoarthritis, MRSA and herniated disc of the lumbar spine presenting to the ED via EMS for right knee pain 4 days that started suddenly when the patient fell 4 days ago when her right leg would not move with her other leg. Patient had a knee replacement on the left knee on January 28, 2017. She had her right knee replaced earlier this year. She denies head trauma or LOC. No numbness or tingling in the leg. She normally takes oxycodone at home for pain, but was unable to reach her pain medicine today and has not taken anything for pain today. She is unable to completely flex the knee due to pain. She was actually scheduled for surgery of the right knee today by Dr. Valle and orthopedics, but they would not do the surgery because of her recent fall and increased pain. She has apparently been urinating in a trash can next to her bed because she is unable to get up. She lives at home with her son who has been of minimal help. Hospital course: Consultants: Elieser Valle Needed for Discharge: Disposition: documented as of this encounter (statuses as of 07/29/2022) [facility] History of Past illness Narrative* Problem Noted Date Resolved Date Acute pulmonary embolism 11/26/2017 019 Last Assessment & Plan: Assessment: No signs of PE. Holding Eliquis until ortho staff puts in final recommendations. Hx of PE in October 2017 Currently on Apixiban PLAN: Resumed apixiban, 5mg Bid because no indication for 2.5mg BID S/P total knee arthroplasty, right 06/25/2017 07/08/2017 Overview: Added automatically from request for surgery [id number] Acute pain of right knee 06/25/2017 018 Overview: Added automatically from request for surgery [id number] Patellar dislocation, right, initial encounter 1 06/20/2016 04/21/2017 Status post total knee replacement using cement, right 04/16/2017 04/21/2017 Overview: Added automatically from request for surgery [id number] Acute pain of right knee 04/16/2017 017 Overview: Added automatically from request for surgery [id number] SUMMARY 04/03/2017 04/17/2017 Overview: Admit date: 04/03/2017 Reason for Admission/Observation: Unable to function Presentation: Patient is a 61-year-old female with PMH of MS, osteoarthritis, MRSA and herniated disc of the lumbar spine presenting to the ED via EMS for right knee pain 4 days that started suddenly when the patient fell 4 days ago when her right leg would not move with her other leg. Patient had a knee replacement on the left knee on January 28, 2017. She had her right knee replaced earlier this year. She denies head trauma or LOC. No numbness or tingling in the leg. She normally takes oxycodone at home for pain, but was unable to reach her pain medicine today and has not taken anything for pain today. She is unable to completely flex the knee due to pain. She was actually scheduled for surgery of the right knee today by Dr. Valle and orthopedics, but they would not do the surgery because of her recent fall and increased pain. She has apparently been urinating in a trash can next to her bed because she is unable to get up. She lives at home with her son who has been of minimal help. Hospital course: Consultants: Elieser Valle Needed for Discharge: Disposition: documented as of this encounter (statuses as of 07/30/2022) [facility] History of Past illness Narrative* Problem Noted Date Resolved Date Acute pulmonary embolism 11/26/2017 019 Last Assessment & Plan: Assessment: No signs of PE. Holding Eliquis until ortho staff puts in final recommendations. Hx of PE in October 2017 Currently on Apixiban PLAN: Resumed apixiban, 5mg Bid because no indication for 2.5mg BID S/P total knee arthroplasty, right 06/25/2017 07/08/2017 Overview: Added automatically from request for surgery [id number] Acute pain of right knee 06/25/2017 018 Overview: Added automatically from request for surgery [id number] Patellar dislocation, right, initial encounter 1 06/20/2016 04/21/2017 Status post total knee replacement using cement, right 04/16/2017 04/21/2017 Overview: Added automatically from request for surgery [id number] Acute pain of right knee 04/16/2017 017 Overview: Added automatically from request for surgery [id number] SUMMARY 04/03/2017 04/17/2017 Overview: Admit date: 04/03/2017 Reason for Admission/Observation: Unable to function Presentation: Patient is a 61-year-old female with PMH of MS, osteoarthritis, MRSA and herniated disc of the lumbar spine presenting to the ED via EMS for right knee pain 4 days that started suddenly when the patient fell 4 days ago when her right leg would not move with her other leg. Patient had a knee replacement on the left knee on January 28, 2017. She had her right knee replaced earlier this year. She denies head trauma or LOC. No numbness or tingling in the leg. She normally takes oxycodone at home for pain, but was unable to reach her pain medicine today and has not taken anything for pain today. She is unable to completely flex the knee due to pain. She was actually scheduled for surgery of the right knee today by Dr. Valle and orthopedics, but they would not do the surgery because of her recent fall and increased pain. She has apparently been urinating in a trash can next to her bed because she is unable to get up. She lives at home with her son who has been of minimal help. Hospital course: Consultants: Elieser Valle Needed for Discharge: Disposition: documented as of this encounter (statuses as of 08/12/2022) [facility] History of Past illness Narrative* Problem Noted Date Resolved Date Acute pulmonary embolism 11/26/2017 019 Last Assessment & Plan: Assessment: No signs of PE. Holding Eliquis until ortho staff puts in final recommendations. Hx of PE in October 2017 Currently on Apixiban PLAN: Resumed apixiban, 5mg Bid because no indication for 2.5mg BID S/P total knee arthroplasty, right 06/25/2017 07/08/2017 Overview: Added automatically from request for surgery [id number] Acute pain of right knee 06/25/2017 018 Overview: Added automatically from request for surgery [id number] Patellar dislocation, right, initial encounter 1 06/20/2016 04/21/2017 Status post total knee replacement using cement, right 04/16/2017 04/21/2017 Overview: Added automatically from request for surgery [id number] Acute pain of right knee 04/16/2017 017 Overview: Added automatically from request for surgery [id number] SUMMARY 04/03/2017 04/17/2017 Overview: Admit date: 04/03/2017 Reason for Admission/Observation: Unable to function Presentation: Patient is a 61-year-old female with PMH of MS, osteoarthritis, MRSA and herniated disc of the lumbar spine presenting to the ED via EMS for right knee pain 4 days that started suddenly when the patient fell 4 days ago when her right leg would not move with her other leg. Patient had a knee replacement on the left knee on January 28, 2017. She had her right knee replaced earlier this year. She denies head trauma or LOC. No numbness or tingling in the leg. She normally takes oxycodone at home for pain, but was unable to reach her pain medicine today and has not taken anything for pain today. She is unable to completely flex the knee due to pain. She was actually scheduled for surgery of the right knee today by Dr. Valle and orthopedics, but they would not do the surgery because of her recent fall and increased pain. She has apparently been urinating in a trash can next to her bed because she is unable to get up. She lives at home with her son who has been of minimal help. Hospital course: Consultants: Elieser Valle Needed for Discharge: Disposition: documented as of this encounter (statuses as of 08/28/2022) [facility] History of Past illness Narrative* Problem Noted Date Resolved Date Acute pulmonary embolism 11/26/2017 019 Last Assessment & Plan: Assessment: No signs of PE. Holding Eliquis until ortho staff puts in final recommendations. Hx of PE in October 2017 Currently on Apixiban PLAN: Resumed apixiban, 5mg Bid because no indication for 2.5mg BID S/P total knee arthroplasty, right 06/25/2017 07/08/2017 Overview: Added automatically from request for surgery [id number] Acute pain of right knee 06/25/2017 018 Overview: Added automatically from request for surgery [id number] Patellar dislocation, right, initial encounter 1 06/20/2016 04/21/2017 Status post total knee replacement using cement, right 04/16/2017 04/21/2017 Overview: Added automatically from request for surgery [id number] Acute pain of right knee 04/16/2017 017 Overview: Added automatically from request for surgery [id number] SUMMARY 04/03/2017 04/17/2017 Overview: Admit date: 04/03/2017 Reason for Admission/Observation: Unable to function Presentation: Patient is a 61-year-old female with PMH of MS, osteoarthritis, MRSA and herniated disc of the lumbar spine presenting to the ED via EMS for right knee pain 4 days that started suddenly when the patient fell 4 days ago when her right leg would not move with her other leg. Patient had a knee replacement on the left knee on January 28, 2017. She had her right knee replaced earlier this year. She denies head trauma or LOC. No numbness or tingling in the leg. She normally takes oxycodone at home for pain, but was unable to reach her pain medicine today and has not taken anything for pain today. She is unable to completely flex the knee due to pain. She was actually scheduled for surgery of the right knee today by Dr. Valle and orthopedics, but they would not do the surgery because of her recent fall and increased pain. She has apparently been urinating in a trash can next to her bed because she is unable to get up. She lives at home with her son who has been of minimal help. Hospital course: Consultants: Elieser Valle Needed for Discharge: Disposition: documented as of this encounter (statuses as of 08/30/2022) [facility] History of Past illness Narrative* Problem Noted Date Resolved Date Acute pulmonary embolism 11/26/2017 019 Last Assessment & Plan: Assessment: No signs of PE. Holding Eliquis until ortho staff puts in final recommendations. Hx of PE in October 2017 Currently on Apixiban PLAN: Resumed apixiban, 5mg Bid because no indication for 2.5mg BID S/P total knee arthroplasty, right 06/25/2017 07/08/2017 Overview: Added automatically from request for surgery [id number] Acute pain of right knee 06/25/2017 018 Overview: Added automatically from request for surgery [id number] Patellar dislocation, right, initial encounter 1 06/20/2016 04/21/2017 Status post total knee replacement using cement, right 04/16/2017 04/21/2017 Overview: Added automatically from request for surgery [id number] Acute pain of right knee 04/16/2017 017 Overview: Added automatically from request for surgery [id number] SUMMARY 04/03/2017 04/17/2017 Overview: Admit date: 04/03/2017 Reason for Admission/Observation: Unable to function Presentation: Patient is a 61-year-old female with PMH of MS, osteoarthritis, MRSA and herniated disc of the lumbar spine presenting to the ED via EMS for right knee pain 4 days that started suddenly when the patient fell 4 days ago when her right leg would not move with her other leg. Patient had a knee replacement on the left knee on January 28, 2017. She had her right knee replaced earlier this year. She denies head trauma or LOC. No numbness or tingling in the leg. She normally takes oxycodone at home for pain, but was unable to reach her pain medicine today and has not taken anything for pain today. She is unable to completely flex the knee due to pain. She was actually scheduled for surgery of the right knee today by Dr. Valle and orthopedics, but they would not do the surgery because of her recent fall and increased pain. She has apparently been urinating in a trash can next to her bed because she is unable to get up. She lives at home with her son who has been of minimal help. Hospital course: Consultants: Elieser Valle Needed for Discharge: Disposition: documented as of this encounter (statuses as of 09/08/2022) [facility] History of Past illness Narrative* Problem Noted Date Resolved Date Acute pulmonary embolism 11/26/2017 019 Last Assessment & Plan: Assessment: No signs of PE. Holding Eliquis until ortho staff puts in final recommendations. Hx of PE in October 2017 Currently on Apixiban PLAN: Resumed apixiban, 5mg Bid because no indication for 2.5mg BID S/P total knee arthroplasty, right 06/25/2017 07/08/2017 Overview: Added automatically from request for surgery [id number] Acute pain of right knee 06/25/2017 018 Overview: Added automatically from request for surgery [id number] Patellar dislocation, right, initial encounter 1 06/20/2016 04/21/2017 Status post total knee replacement using cement, right 04/16/2017 04/21/2017 Overview: Added automatically from request for surgery [id number] Acute pain of right knee 04/16/2017 017 Overview: Added automatically from request for surgery [id number] SUMMARY 04/03/2017 04/17/2017 Overview: Admit date: 04/03/2017 Reason for Admission/Observation: Unable to function Presentation: Patient is a 61-year-old female with PMH of MS, osteoarthritis, MRSA and herniated disc of the lumbar spine presenting to the ED via EMS for right knee pain 4 days that started suddenly when the patient fell 4 days ago when her right leg would not move with her other leg. Patient had a knee replacement on the left knee on January 28, 2017. She had her right knee replaced earlier this year. She denies head trauma or LOC. No numbness or tingling in the leg. She normally takes oxycodone at home for pain, but was unable to reach her pain medicine today and has not taken anything for pain today. She is unable to completely flex the knee due to pain. She was actually scheduled for surgery of the right knee today by Dr. Valle and orthopedics, but they would not do the surgery because of her recent fall and increased pain. She has apparently been urinating in a trash can next to her bed because she is unable to get up. She lives at home with her son who has been of minimal help. Hospital course: Consultants: Elieser Valle Needed for Discharge: Disposition: documented as of this encounter (statuses as of 09/20/2022) [facility] History of Past illness Narrative* Problem Noted Date Resolved Date Acute pulmonary embolism 11/26/2017 019 Last Assessment & Plan: Assessment: No signs of PE. Holding Eliquis until ortho staff puts in final recommendations. Hx of PE in October 2017 Currently on Apixiban PLAN: Resumed apixiban, 5mg Bid because no indication for 2.5mg BID S/P total knee arthroplasty, right 06/25/2017 07/08/2017 Overview: Added automatically from request for surgery [id number] Acute pain of right knee 06/25/2017 018 Overview: Added automatically from request for surgery [id number] Patellar dislocation, right, initial encounter 1 06/20/2016 04/21/2017 Status post total knee replacement using cement, right 04/16/2017 04/21/2017 Overview: Added automatically from request for surgery [id number] Acute pain of right knee 04/16/2017 017 Overview: Added automatically from request for surgery [id number] SUMMARY 04/03/2017 04/17/2017 Overview: Admit date: 04/03/2017 Reason for Admission/Observation: Unable to function Presentation: Patient is a 61-year-old female with PMH of MS, osteoarthritis, MRSA and herniated disc of the lumbar spine presenting to the ED via EMS for right knee pain 4 days that started suddenly when the patient fell 4 days ago when her right leg would not move with her other leg. Patient had a knee replacement on the left knee on January 28, 2017. She had her right knee replaced earlier this year. She denies head trauma or LOC. No numbness or tingling in the leg. She normally takes oxycodone at home for pain, but was unable to reach her pain medicine today and has not taken anything for pain today. She is unable to completely flex the knee due to pain. She was actually scheduled for surgery of the right knee today by Dr. Valle and orthopedics, but they would not do the surgery because of her recent fall and increased pain. She has apparently been urinating in a trash can next to her bed because she is unable to get up. She lives at home with her son who has been of minimal help. Hospital course: Consultants: Elieser Valle Needed for Discharge: Disposition: documented as of this encounter (statuses as of 09/24/2022) [facility] History of Past illness Narrative* Problem Noted Date Resolved Date Acute pulmonary embolism 11/26/2017 019 Last Assessment & Plan: Assessment: No signs of PE. Holding Eliquis until ortho staff puts in final recommendations. Hx of PE in October 2017 Currently on Apixiban PLAN: Resumed apixiban, 5mg Bid because no indication for 2.5mg BID S/P total knee arthroplasty, right 06/25/2017 07/08/2017 Overview: Added automatically from request for surgery [id number] Acute pain of right knee 06/25/2017 018 Overview: Added automatically from request for surgery [id number] Patellar dislocation, right, initial encounter 1 06/20/2016 04/21/2017 Status post total knee replacement using cement, right 04/16/2017 04/21/2017 Overview: Added automatically from request for surgery [id number] Acute pain of right knee 04/16/2017 017 Overview: Added automatically from request for surgery [id number] SUMMARY 04/03/2017 04/17/2017 Overview: Admit date: 04/03/2017 Reason for Admission/Observation: Unable to function Presentation: Patient is a 61-year-old female with PMH of MS, osteoarthritis, MRSA and herniated disc of the lumbar spine presenting to the ED via EMS for right knee pain 4 days that started suddenly when the patient fell 4 days ago when her right leg would not move with her other leg. Patient had a knee replacement on the left knee on January 28, 2017. She had her right knee replaced earlier this year. She denies head trauma or LOC. No numbness or tingling in the leg. She normally takes oxycodone at home for pain, but was unable to reach her pain medicine today and has not taken anything for pain today. She is unable to completely flex the knee due to pain. She was actually scheduled for surgery of the right knee today by Dr. Valle and orthopedics, but they would not do the surgery because of her recent fall and increased pain. She has apparently been urinating in a trash can next to her bed because she is unable to get up. She lives at home with her son who has been of minimal help. Hospital course: Consultants: Elieser Valle Needed for Discharge: Disposition: documented as of this encounter (statuses as of 10/01/2022) [facility] History of Past illness Narrative* Problem Noted Date Resolved Date Acute pulmonary embolism 11/26/2017 019 Last Assessment & Plan: Assessment: No signs of PE. Holding Eliquis until ortho staff puts in final recommendations. Hx of PE in October 2017 Currently on Apixiban PLAN: Resumed apixiban, 5mg Bid because no indication for 2.5mg BID S/P total knee arthroplasty, right 06/25/2017 07/08/2017 Overview: Added automatically from request for surgery [id number] Acute pain of right knee 06/25/2017 018 Overview: Added automatically from request for surgery [id number] Patellar dislocation, right, initial encounter 1 06/20/2016 04/21/2017 Status post total knee replacement using cement, right 04/16/2017 04/21/2017 Overview: Added automatically from request for surgery [id number] Acute pain of right knee 04/16/2017 017 Overview: Added automatically from request for surgery [id number] SUMMARY 04/03/2017 04/17/2017 Overview: Admit date: 04/03/2017 Reason for Admission/Observation: Unable to function Presentation: Patient is a 61-year-old female with PMH of MS, osteoarthritis, MRSA and herniated disc of the lumbar spine presenting to the ED via EMS for right knee pain 4 days that started suddenly when the patient fell 4 days ago when her right leg would not move with her other leg. Patient had a knee replacement on the left knee on January 28, 2017. She had her right knee replaced earlier this year. She denies head trauma or LOC. No numbness or tingling in the leg. She normally takes oxycodone at home for pain, but was unable to reach her pain medicine today and has not taken anything for pain today. She is unable to completely flex the knee due to pain. She was actually scheduled for surgery of the right knee today by Dr. Valle and orthopedics, but they would not do the surgery because of her recent fall and increased pain. She has apparently been urinating in a trash can next to her bed because she is unable to get up. She lives at home with her son who has been of minimal help. Hospital course: Consultants: Elieser Valle Needed for Discharge: Disposition: documented as of this encounter (statuses as of 10/07/2022) [facility] History of Past illness Narrative* Problem Noted Date Resolved Date Acute pulmonary embolism 11/26/2017 019 Last Assessment & Plan: Assessment: No signs of PE. Holding Eliquis until ortho staff puts in final recommendations. Hx of PE in October 2017 Currently on Apixiban PLAN: Resumed apixiban, 5mg Bid because no indication for 2.5mg BID S/P total knee arthroplasty, right 06/25/2017 07/08/2017 Overview: Added automatically from request for surgery [id number] Acute pain of right knee 06/25/2017 018 Overview: Added automatically from request for surgery [id number] Patellar dislocation, right, initial encounter 1 06/20/2016 04/21/2017 Status post total knee replacement using cement, right 04/16/2017 04/21/2017 Overview: Added automatically from request for surgery [id number] Acute pain of right knee 04/16/2017 017 Overview: Added automatically from request for surgery [id number] SUMMARY 04/03/2017 04/17/2017 Overview: Admit date: 04/03/2017 Reason for Admission/Observation: Unable to function Presentation: Patient is a 61-year-old female with PMH of MS, osteoarthritis, MRSA and herniated disc of the lumbar spine presenting to the ED via EMS for right knee pain 4 days that started suddenly when the patient fell 4 days ago when her right leg would not move with her other leg. Patient had a knee replacement on the left knee on January 28, 2017. She had her right knee replaced earlier this year. She denies head trauma or LOC. No numbness or tingling in the leg. She normally takes oxycodone at home for pain, but was unable to reach her pain medicine today and has not taken anything for pain today. She is unable to completely flex the knee due to pain. She was actually scheduled for surgery of the right knee today by Dr. Valle and orthopedics, but they would not do the surgery because of her recent fall and increased pain. She has apparently been urinating in a trash can next to her bed because she is unable to get up. She lives at home with her son who has been of minimal help. Hospital course: Consultants: Elieser Valle Needed for Discharge: Disposition: documented as of this encounter (statuses as of 10/16/2022) [facility] History of Past illness Narrative* Problem Noted Date Resolved Date Acute pulmonary embolism 11/26/2017 019 Last Assessment & Plan: Assessment: No signs of PE. Holding Eliquis until ortho staff puts in final recommendations. Hx of PE in October 2017 Currently on Apixiban PLAN: Resumed apixiban, 5mg Bid because no indication for 2.5mg BID S/P total knee arthroplasty, right 06/25/2017 07/08/2017 Overview: Added automatically from request for surgery [id number] Acute pain of right knee 06/25/2017 018 Overview: Added automatically from request for surgery [id number] Patellar dislocation, right, initial encounter 1 06/20/2016 04/21/2017 Status post total knee replacement using cement, right 04/16/2017 04/21/2017 Overview: Added automatically from request for surgery [id number] Acute pain of right knee 04/16/2017 017 Overview: Added automatically from request for surgery [id number] SUMMARY 04/03/2017 04/17/2017 Overview: Admit date: 04/03/2017 Reason for Admission/Observation: Unable to function Presentation: Patient is a 61-year-old female with PMH of MS, osteoarthritis, MRSA and herniated disc of the lumbar spine presenting to the ED via EMS for right knee pain 4 days that started suddenly when the patient fell 4 days ago when her right leg would not move with her other leg. Patient had a knee replacement on the left knee on January 28, 2017. She had her right knee replaced earlier this year. She denies head trauma or LOC. No numbness or tingling in the leg. She normally takes oxycodone at home for pain, but was unable to reach her pain medicine today and has not taken anything for pain today. She is unable to completely flex the knee due to pain. She was actually scheduled for surgery of the right knee today by Dr. Valle and orthopedics, but they would not do the surgery because of her recent fall and increased pain. She has apparently been urinating in a trash can next to her bed because she is unable to get up. She lives at home with her son who has been of minimal help. Hospital course: Consultants: Elieser Valle Needed for Discharge: Disposition: documented as of this encounter (statuses as of 11/06/2022) [facility] History of Past illness Narrative* Problem Noted Date Resolved Date Acute pulmonary embolism 11/26/2017 019 Last Assessment & Plan: Assessment: No signs of PE. Holding Eliquis until ortho staff puts in final recommendations. Hx of PE in October 2017 Currently on Apixiban PLAN: Resumed apixiban, 5mg Bid because no indication for 2.5mg BID S/P total knee arthroplasty, right 06/25/2017 07/08/2017 Overview: Added automatically from request for surgery [id number] Acute pain of right knee 06/25/2017 018 Overview: Added automatically from request for surgery [id number] Patellar dislocation, right, initial encounter 1 06/20/2016 04/21/2017 Status post total knee replacement using cement, right 04/16/2017 04/21/2017 Overview: Added automatically from request for surgery [id number] Acute pain of right knee 04/16/2017 017 Overview: Added automatically from request for surgery [id number] SUMMARY 04/03/2017 04/17/2017 Overview: Admit date: 04/03/2017 Reason for Admission/Observation: Unable to function Presentation: Patient is a 61-year-old female with PMH of MS, osteoarthritis, MRSA and herniated disc of the lumbar spine presenting to the ED via EMS for right knee pain 4 days that started suddenly when the patient fell 4 days ago when her right leg would not move with her other leg. Patient had a knee replacement on the left knee on January 28, 2017. She had her right knee replaced earlier this year. She denies head trauma or LOC. No numbness or tingling in the leg. She normally takes oxycodone at home for pain, but was unable to reach her pain medicine today and has not taken anything for pain today. She is unable to completely flex the knee due to pain. She was actually scheduled for surgery of the right knee today by Dr. Valle and orthopedics, but they would not do the surgery because of her recent fall and increased pain. She has apparently been urinating in a trash can next to her bed because she is unable to get up. She lives at home with her son who has been of minimal help. Hospital course: Consultants: Elieser Valle Needed for Discharge: Disposition: documented as of this encounter (statuses as of 11/17/2022) [facility] History of Past illness Narrative* Problem Noted Date Resolved Date Acute pulmonary embolism 11/26/2017 019 Last Assessment & Plan: Assessment: No signs of PE. Holding Eliquis until ortho staff puts in final recommendations. Hx of PE in October 2017 Currently on Apixiban PLAN: Resumed apixiban, 5mg Bid because no indication for 2.5mg BID S/P total knee arthroplasty, right 06/25/2017 07/08/2017 Overview: Added automatically from request for surgery [id number] Acute pain of right knee 06/25/2017 018 Overview: Added automatically from request for surgery [id number] Patellar dislocation, right, initial encounter 1 06/20/2016 04/21/2017 Status post total knee replacement using cement, right 04/16/2017 04/21/2017 Overview: Added automatically from request for surgery [id number] Acute pain of right knee 04/16/2017 017 Overview: Added automatically from request for surgery [id number] SUMMARY 04/03/2017 04/17/2017 Overview: Admit date: 04/03/2017 Reason for Admission/Observation: Unable to function Presentation: Patient is a 61-year-old female with PMH of MS, osteoarthritis, MRSA and herniated disc of the lumbar spine presenting to the ED via EMS for right knee pain 4 days that started suddenly when the patient fell 4 days ago when her right leg would not move with her other leg. Patient had a knee replacement on the left knee on January 28, 2017. She had her right knee replaced earlier this year. She denies head trauma or LOC. No numbness or tingling in the leg. She normally takes oxycodone at home for pain, but was unable to reach her pain medicine today and has not taken anything for pain today. She is unable to completely flex the knee due to pain. She was actually scheduled for surgery of the right knee today by Dr. Valle and orthopedics, but they would not do the surgery because of her recent fall and increased pain. She has apparently been urinating in a trash can next to her bed because she is unable to get up. She lives at home with her son who has been of minimal help. Hospital course: Consultants: Elieser Valle Needed for Discharge: Disposition: documented as of this encounter (statuses as of 11/21/2022) [facility] History of Past illness Narrative* Problem Noted Date Resolved Date Acute pulmonary embolism 11/26/2017 019 Last Assessment & Plan: Assessment: No signs of PE. Holding Eliquis until ortho staff puts in final recommendations. Hx of PE in October 2017 Currently on Apixiban PLAN: Resumed apixiban, 5mg Bid because no indication for 2.5mg BID S/P total knee arthroplasty, right 06/25/2017 07/08/2017 Overview: Added automatically from request for surgery [id number] Acute pain of right knee 06/25/2017 018 Overview: Added automatically from request for surgery [id number] Patellar dislocation, right, initial encounter 1 06/20/2016 04/21/2017 Status post total knee replacement using cement, right 04/16/2017 04/21/2017 Overview: Added automatically from request for surgery [id number] Acute pain of right knee 04/16/2017 017 Overview: Added automatically from request for surgery [id number] SUMMARY 04/03/2017 04/17/2017 Overview: Admit date: 04/03/2017 Reason for Admission/Observation: Unable to function Presentation: Patient is a 61-year-old female with PMH of MS, osteoarthritis, MRSA and herniated disc of the lumbar spine presenting to the ED via EMS for right knee pain 4 days that started suddenly when the patient fell 4 days ago when her right leg would not move with her other leg. Patient had a knee replacement on the left knee on January 28, 2017. She had her right knee replaced earlier this year. She denies head trauma or LOC. No numbness or tingling in the leg. She normally takes oxycodone at home for pain, but was unable to reach her pain medicine today and has not taken anything for pain today. She is unable to completely flex the knee due to pain. She was actually scheduled for surgery of the right knee today by Dr. Valle and orthopedics, but they would not do the surgery because of her recent fall and increased pain. She has apparently been urinating in a trash can next to her bed because she is unable to get up. She lives at home with her son who has been of minimal help. Hospital course: Consultants: Elieser Valle Needed for Discharge: Disposition: documented as of this encounter (statuses as of 12/04/2022) [facility] History of Past illness Narrative* Problem Noted Date Diagnosed Date Resolved Date Acute pulmonary embolism 11/26/201701/2019 Last Assessment & Plan: Assessment: No signs of PE. Holding Eliquis until ortho staff puts in final recommendations. Hx of PE in October 2017 Currently on Apixiban PLAN: Resumed apixiban, 5mg Bid because no indication for 2.5mg BID S/P total knee arthroplasty, right 06/25/2017 07/08/2017 Overview: Added automatically from request for surgery [id number] Acute pain of right knee 06/25/201711/2017 Overview: Added automatically from request for surgery [id number] Patellar dislocation, right, initial encounter 04/20/2017 04/21/2017 Status post total knee repla cement using cement, right 04/16/2017 04/21/2017 Overview: Added automatically from request for surgery [id number] Acute pain of right knee 04/16/2017 Overview: Added automatically from request for surgery [id number] SUMMARY 04/03/2017 04/17/2017 Overview: Admit date: 04/03/2017 Reason for Admission/Observation: Unable to function Presentation: Patient is a 61-year-old female with PMH of MS, osteoarthritis, MRSA and herniated disc of the lumbar spine presenting to the ED via EMS for right knee pain 4 days that started suddenly when the patient fell 4 days ago when her right leg would not move with her other leg. Patient had a knee replacement on the left knee on January 28, 2017. She had her right knee replaced earlier this year. She denies head trauma or LOC. No numbness or tingling in the leg. She normally takes oxycodone at home for pain, but was unable to reach her pain medicine today and has not taken anything for pain today. She is unable to completely flex the knee due to pain. She was actually scheduled for surgery of the right knee today by Dr. Valle and orthopedics, but they would not do the surgery because of her recent fall and increased pain. She has apparently been urinating in a trash can next to her bed because she is unable to get up. She lives at home with her son who has been of minimal help. Hospital course: Consultants: Elieser Valle Needed for Discharge: Disposition: documented as of this encounter (statuses as of 12/16/2022) [facility] History of Past illness Narrative* Problem Noted Date Diagnosed Date Resolved Date Acute pulmonary embolism 11/26/201701/2019 Last Assessment & Plan: Assessment: No signs of PE. Holding Eliquis until ortho staff puts in final recommendations. Hx of PE in October 2017 Currently on Apixiban PLAN: Resumed apixiban, 5mg Bid because no indication for 2.5mg BID S/P total knee arthroplasty, right 06/25/2017 07/08/2017 Overview: Added automatically from request for surgery [id number] Acute pain of right knee 06/25/201711/2017 Overview: Added automatically from request for surgery [id number] Patellar dislocation, right, initial encounter 04/20/2017 04/21/2017 Status post total knee repla cement using cement, right 04/16/2017 04/21/2017 Overview: Added automatically from request for surgery [id number] Acute pain of right knee 04/16/2017 Overview: Added automatically from request for surgery [id number] SUMMARY 04/03/2017 04/17/2017 Overview: Admit date: 04/03/2017 Reason for Admission/Observation: Unable to function Presentation: Patient is a 61-year-old female with PMH of MS, osteoarthritis, MRSA and herniated disc of the lumbar spine presenting to the ED via EMS for right knee pain 4 days that started suddenly when the patient fell 4 days ago when her right leg would not move with her other leg. Patient had a knee replacement on the left knee on January 28, 2017. She had her right knee replaced earlier this year. She denies head trauma or LOC. No numbness or tingling in the leg. She normally takes oxycodone at home for pain, but was unable to reach her pain medicine today and has not taken anything for pain today. She is unable to completely flex the knee due to pain. She was actually scheduled for surgery of the right knee today by Dr. Valle and orthopedics, but they would not do the surgery because of her recent fall and increased pain. She has apparently been urinating in a trash can next to her bed because she is unable to get up. She lives at home with her son who has been of minimal help. Hospital course: Consultants: Elieser Valle Needed for Discharge: Disposition: documented as of this encounter (statuses as of 12/30/2022) [facility] History of Past illness Narrative* Problem Noted Date Diagnosed Date Resolved Date Acute pulmonary embolism 11/26/201701/2019 Last Assessment & Plan: Assessment: No signs of PE. Holding Eliquis until ortho staff puts in final recommendations. Hx of PE in October 2017 Currently on Apixiban PLAN: Resumed apixiban, 5mg Bid because no indication for 2.5mg BID S/P total knee arthroplasty, right 06/25/2017 07/08/2017 Overview: Added automatically from request for surgery [id number] Acute pain of right knee 06/25/201711/2017 Overview: Added automatically from request for surgery [id number] Patellar dislocation, right, initial encounter 04/20/2017 04/21/2017 Status post total knee repla cement using cement, right 04/16/2017 04/21/2017 Overview: Added automatically from request for surgery [id number] Acute pain of right knee 04/16/2017 Overview: Added automatically from request for surgery [id number] SUMMARY 04/03/2017 04/17/2017 Overview: Admit date: 04/03/2017 Reason for Admission/Observation: Unable to function Presentation: Patient is a 61-year-old female with PMH of MS, osteoarthritis, MRSA and herniated disc of the lumbar spine presenting to the ED via EMS for right knee pain 4 days that started suddenly when the patient fell 4 days ago when her right leg would not move with her other leg. Patient had a knee replacement on the left knee on January 28, 2017. She had her right knee replaced earlier this year. She denies head trauma or LOC. No numbness or tingling in the leg. She normally takes oxycodone at home for pain, but was unable to reach her pain medicine today and has not taken anything for pain today. She is unable to completely flex the knee due to pain. She was actually scheduled for surgery of the right knee today by Dr. Valle and orthopedics, but they would not do the surgery because of her recent fall and increased pain. She has apparently been urinating in a trash can next to her bed because she is unable to get up. She lives at home with her son who has been of minimal help. Hospital course: Consultants: Elieser Valle Needed for Discharge: Disposition: documented as of this encounter (statuses as of 01/01/2023) [facility] History of Past illness Narrative* Problem Noted Date Diagnosed Date Resolved Date Acute pulmonary embolism 11/26/201701/2019 Last Assessment & Plan: Assessment: No signs of PE. Holding Eliquis until ortho staff puts in final recommendations. Hx of PE in October 2017 Currently on Apixiban PLAN: Resumed apixiban, 5mg Bid because no indication for 2.5mg BID S/P total knee arthroplasty, right 06/25/2017 07/08/2017 Overview: Added automatically from request for surgery [id number] Acute pain of right knee 06/25/201711/2017 Overview: Added automatically from request for surgery [id number] Patellar dislocation, right, initial encounter 04/20/2017 04/21/2017 Status post total knee repla cement using cement, right 04/16/2017 04/21/2017 Overview: Added automatically from request for surgery [id number] Acute pain of right knee 04/16/2017 Overview: Added automatically from request for surgery [id number] SUMMARY 04/03/2017 04/17/2017 Overview: Admit date: 04/03/2017 Reason for Admission/Observation: Unable to function Presentation: Patient is a 61-year-old female with PMH of MS, osteoarthritis, MRSA and herniated disc of the lumbar spine presenting to the ED via EMS for right knee pain 4 days that started suddenly when the patient fell 4 days ago when her right leg would not move with her other leg. Patient had a knee replacement on the left knee on January 28, 2017. She had her right knee replaced earlier this year. She denies head trauma or LOC. No numbness or tingling in the leg. She normally takes oxycodone at home for pain, but was unable to reach her pain medicine today and has not taken anything for pain today. She is unable to completely flex the knee due to pain. She was actually scheduled for surgery of the right knee today by Dr. Valle and orthopedics, but they would not do the surgery because of her recent fall and increased pain. She has apparently been urinating in a trash can next to her bed because she is unable to get up. She lives at home with her son who has been of minimal help. Hospital course: Consultants: Elieser Valle Needed for Discharge: Disposition: documented as of this encounter (statuses as of 01/01/2023) [facility] History of Past illness Narrative* Problem Noted Date Diagnosed Date Resolved Date Acute pulmonary embolism 11/26/201701/2019 Last Assessment & Plan: Assessment: No signs of PE. Holding Eliquis until ortho staff puts in final recommendations. Hx of PE in October 2017 Currently on Apixiban PLAN: Resumed apixiban, 5mg Bid because no indication for 2.5mg BID S/P total knee arthroplasty, right 06/25/2017 07/08/2017 Overview: Added automatically from request for surgery [id number] Acute pain of right knee 06/25/201711/2017 Overview: Added automatically from request for surgery [id number] Patellar dislocation, right, initial encounter 04/20/2017 04/21/2017 Status post total knee repla cement using cement, right 04/16/2017 04/21/2017 Overview: Added automatically from request for surgery [id number] Acute pain of right knee 04/16/2017 Overview: Added automatically from request for surgery [id number] SUMMARY 04/03/2017 04/17/2017 Overview: Admit date: 04/03/2017 Reason for Admission/Observation: Unable to function Presentation: Patient is a 61-year-old female with PMH of MS, osteoarthritis, MRSA and herniated disc of the lumbar spine presenting to the ED via EMS for right knee pain 4 days that started suddenly when the patient fell 4 days ago when her right leg would not move with her other leg. Patient had a knee replacement on the left knee on January 28, 2017. She had her right knee replaced earlier this year. She denies head trauma or LOC. No numbness or tingling in the leg. She normally takes oxycodone at home for pain, but was unable to reach her pain medicine today and has not taken anything for pain today. She is unable to completely flex the knee due to pain. She was actually scheduled for surgery of the right knee today by Dr. Valle and orthopedics, but they would not do the surgery because of her recent fall and increased pain. She has apparently been urinating in a trash can next to her bed because she is unable to get up. She lives at home with her son who has been of minimal help. Hospital course: Consultants: Elieser Valle Needed for Discharge: Disposition: documented as of this encounter (statuses as of 01/13/2023) [facility] History of Past illness Narrative* Problem Noted Date Diagnosed Date Resolved Date Acute pulmonary embolism 11/26/201701/2019 Last Assessment & Plan: Assessment: No signs of PE. Holding Eliquis until ortho staff puts in final recommendations. Hx of PE in October 2017 Currently on Apixiban PLAN: Resumed apixiban, 5mg Bid because no indication for 2.5mg BID S/P total knee arthroplasty, right 06/25/2017 07/08/2017 Overview: Added automatically from request for surgery [id number] Acute pain of right knee 06/25/201711/2017 Overview: Added automatically from request for surgery [id number] Patellar dislocation, right, initial encounter 04/20/2017 04/21/2017 Status post total knee repla cement using cement, right 04/16/2017 04/21/2017 Overview: Added automatically from request for surgery [id number] Acute pain of right knee 04/16/2017 Overview: Added automatically from request for surgery [id number] SUMMARY 04/03/2017 04/17/2017 Overview: Admit date: 04/03/2017 Reason for Admission/Observation: Unable to function Presentation: Patient is a 61-year-old female with PMH of MS, osteoarthritis, MRSA and herniated disc of the lumbar spine presenting to the ED via EMS for right knee pain 4 days that started suddenly when the patient fell 4 days ago when her right leg would not move with her other leg. Patient had a knee replacement on the left knee on January 28, 2017. She had her right knee replaced earlier this year. She denies head trauma or LOC. No numbness or tingling in the leg. She normally takes oxycodone at home for pain, but was unable to reach her pain medicine today and has not taken anything for pain today. She is unable to completely flex the knee due to pain. She was actually scheduled for surgery of the right knee today by Dr. Valle and orthopedics, but they would not do the surgery because of her recent fall and increased pain. She has apparently been urinating in a trash can next to her bed because she is unable to get up. She lives at home with her son who has been of minimal help. Hospital course: Consultants: Elieser Valle Needed for Discharge: Disposition: documented as of this encounter (statuses as of 01/14/2023) [facility] History of Past illness Narrative* Problem Noted Date Diagnosed Date Resolved Date Acute pulmonary embolism 11/26/201701/2019 Last Assessment & Plan: Assessment: No signs of PE. Holding Eliquis until ortho staff puts in final recommendations. Hx of PE in October 2017 Currently on Apixiban PLAN: Resumed apixiban, 5mg Bid because no indication for 2.5mg BID S/P total knee arthroplasty, right 06/25/2017 07/08/2017 Overview: Added automatically from request for surgery [id number] Acute pain of right knee 06/25/201711/2017 Overview: Added automatically from request for surgery [id number] Patellar dislocation, right, initial encounter 04/20/2017 04/21/2017 Status post total knee repla cement using cement, right 04/16/2017 04/21/2017 Overview: Added automatically from request for surgery [id number] Acute pain of right knee 04/16/2017 Overview: Added automatically from request for surgery [id number] SUMMARY 04/03/2017 04/17/2017 Overview: Admit date: 04/03/2017 Reason for Admission/Observation: Unable to function Presentation: Patient is a 61-year-old female with PMH of MS, osteoarthritis, MRSA and herniated disc of the lumbar spine presenting to the ED via EMS for right knee pain 4 days that started suddenly when the patient fell 4 days ago when her right leg would not move with her other leg. Patient had a knee replacement on the left knee on January 28, 2017. She had her right knee replaced earlier this year. She denies head trauma or LOC. No numbness or tingling in the leg. She normally takes oxycodone at home for pain, but was unable to reach her pain medicine today and has not taken anything for pain today. She is unable to completely flex the knee due to pain. She was actually scheduled for surgery of the right knee today by Dr. Valle and orthopedics, but they would not do the surgery because of her recent fall and increased pain. She has apparently been urinating in a trash can next to her bed because she is unable to get up. She lives at home with her son who has been of minimal help. Hospital course: Consultants: Elieser Valle Needed for Discharge: Disposition: documented as of this encounter (statuses as of 01/27/2023) [facility] History of Past illness Narrative* Problem Noted Date Diagnosed Date Resolved Date Acute pulmonary embolism 11/26/201701/2019 Last Assessment & Plan: Assessment: No signs of PE. Holding Eliquis until ortho staff puts in final recommendations. Hx of PE in October 2017 Currently on Apixiban PLAN: Resumed apixiban, 5mg Bid because no indication for 2.5mg BID S/P total knee arthroplasty, right 06/25/2017 07/08/2017 Overview: Added automatically from request for surgery [id number] Acute pain of right knee 06/25/201711/2017 Overview: Added automatically from request for surgery [id number] Patellar dislocation, right, initial encounter 04/20/2017 04/21/2017 Status post total knee repla cement using cement, right 04/16/2017 04/21/2017 Overview: Added automatically from request for surgery [id number] Acute pain of right knee 04/16/2017 Overview: Added automatically from request for surgery [id number] SUMMARY 04/03/2017 04/17/2017 Overview: Admit date: 04/03/2017 Reason for Admission/Observation: Unable to function Presentation: Patient is a 61-year-old female with PMH of MS, osteoarthritis, MRSA and herniated disc of the lumbar spine presenting to the ED via EMS for right knee pain 4 days that started suddenly when the patient fell 4 days ago when her right leg would not move with her other leg. Patient had a knee replacement on the left knee on January 28, 2017. She had her right knee replaced earlier this year. She denies head trauma or LOC. No numbness or tingling in the leg. She normally takes oxycodone at home for pain, but was unable to reach her pain medicine today and has not taken anything for pain today. She is unable to completely flex the knee due to pain. She was actually scheduled for surgery of the right knee today by Dr. Valle and orthopedics, but they would not do the surgery because of her recent fall and increased pain. She has apparently been urinating in a trash can next to her bed because she is unable to get up. She lives at home with her son who has been of minimal help. Hospital course: Consultants: Elieser Valle Needed for Discharge: Disposition: documented as of this encounter (statuses as of 01/31/2023) [facility] History of Past illness Narrative* Problem Noted Date Diagnosed Date Resolved Date Acute pulmonary embolism 11/26/201701/2019 Last Assessment & Plan: Assessment: No signs of PE. Holding Eliquis until ortho staff puts in final recommendations. Hx of PE in October 2017 Currently on Apixiban PLAN: Resumed apixiban, 5mg Bid because no indication for 2.5mg BID S/P total knee arthroplasty, right 06/25/2017 07/08/2017 Overview: Added automatically from request for surgery [id number] Acute pain of right knee 06/25/201711/2017 Overview: Added automatically from request for surgery [id number] Patellar dislocation, right, initial encounter 04/20/2017 04/21/2017 Status post total knee repla cement using cement, right 04/16/2017 04/21/2017 Overview: Added automatically from request for surgery [id number] Acute pain of right knee 04/16/2017 Overview: Added automatically from request for surgery [id number] SUMMARY 04/03/2017 04/17/2017 Overview: Admit date: 04/03/2017 Reason for Admission/Observation: Unable to function Presentation: Patient is a 61-year-old female with PMH of MS, osteoarthritis, MRSA and herniated disc of the lumbar spine presenting to the ED via EMS for right knee pain 4 days that started suddenly when the patient fell 4 days ago when her right leg would not move with her other leg. Patient had a knee replacement on the left knee on January 28, 2017. She had her right knee replaced earlier this year. She denies head trauma or LOC. No numbness or tingling in the leg. She normally takes oxycodone at home for pain, but was unable to reach her pain medicine today and has not taken anything for pain today. She is unable to completely flex the knee due to pain. She was actually scheduled for surgery of the right knee today by Dr. Valle and orthopedics, but they would not do the surgery because of her recent fall and increased pain. She has apparently been urinating in a trash can next to her bed because she is unable to get up. She lives at home with her son who has been of minimal help. Hospital course: Consultants: Elieser Valle Needed for Discharge: Disposition: documented as of this encounter (statuses as of 01/31/2023) [facility] History of Past illness Narrative* Problem Noted Date Diagnosed Date Resolved Date Acute pulmonary embolism 11/26/201701/2019 Last Assessment & Plan: Assessment: No signs of PE. Holding Eliquis until ortho staff puts in final recommendations. Hx of PE in October 2017 Currently on Apixiban PLAN: Resumed apixiban, 5mg Bid because no indication for 2.5mg BID S/P total knee arthroplasty, right 06/25/2017 07/08/2017 Overview: Added automatically from request for surgery [id number] Acute pain of right knee 06/25/201711/2017 Overview: Added automatically from request for surgery [id number] Patellar dislocation, right, initial encounter 04/20/2017 04/21/2017 Status post total knee repla cement using cement, right 04/16/2017 04/21/2017 Overview: Added automatically from request for surgery [id number] Acute pain of right knee 04/16/2017 Overview: Added automatically from request for surgery [id number] SUMMARY 04/03/2017 04/17/2017 Overview: Admit date: 04/03/2017 Reason for Admission/Observation: Unable to function Presentation: Patient is a 61-year-old female with PMH of MS, osteoarthritis, MRSA and herniated disc of the lumbar spine presenting to the ED via EMS for right knee pain 4 days that started suddenly when the patient fell 4 days ago when her right leg would not move with her other leg. Patient had a knee replacement on the left knee on January 28, 2017. She had her right knee replaced earlier this year. She denies head trauma or LOC. No numbness or tingling in the leg. She normally takes oxycodone at home for pain, but was unable to reach her pain medicine today and has not taken anything for pain today. She is unable to completely flex the knee due to pain. She was actually scheduled for surgery of the right knee today by Dr. Valle and orthopedics, but they would not do the surgery because of her recent fall and increased pain. She has apparently been urinating in a trash can next to her bed because she is unable to get up. She lives at home with her son who has been of minimal help. Hospital course: Consultants: Elieser Valle Needed for Discharge: Disposition: documented as of this encounter (statuses as of 02/13/2023) [facility] History of Past illness Narrative* Problem Noted Date Diagnosed Date Resolved Date Acute pulmonary embolism 11/26/201701/2019 Last Assessment & Plan: Assessment: No signs of PE. Holding Eliquis until ortho staff puts in final recommendations. Hx of PE in October 2017 Currently on Apixiban PLAN: Resumed apixiban, 5mg Bid because no indication for 2.5mg BID S/P total knee arthroplasty, right 06/25/2017 07/08/2017 Overview: Added automatically from request for surgery [id number] Acute pain of right knee 06/25/201711/2017 Overview: Added automatically from request for surgery [id number] Patellar dislocation, right, initial encounter 04/20/2017 04/21/2017 Status post total knee repla cement using cement, right 04/16/2017 04/21/2017 Overview: Added automatically from request for surgery [id number] Acute pain of right knee 04/16/2017 Overview: Added automatically from request for surgery [id number] SUMMARY 04/03/2017 04/17/2017 Overview: Admit date: 04/03/2017 Reason for Admission/Observation: Unable to function Presentation: Patient is a 61-year-old female with PMH of MS, osteoarthritis, MRSA and herniated disc of the lumbar spine presenting to the ED via EMS for right knee pain 4 days that started suddenly when the patient fell 4 days ago when her right leg would not move with her other leg. Patient had a knee replacement on the left knee on January 28, 2017. She had her right knee replaced earlier this year. She denies head trauma or LOC. No numbness or tingling in the leg. She normally takes oxycodone at home for pain, but was unable to reach her pain medicine today and has not taken anything for pain today. She is unable to completely flex the knee due to pain. She was actually scheduled for surgery of the right knee today by Dr. Valle and orthopedics, but they would not do the surgery because of her recent fall and increased pain. She has apparently been urinating in a trash can next to her bed because she is unable to get up. She lives at home with her son who has been of minimal help. Hospital course: Consultants: Elieser Valle Needed for Discharge: Disposition: documented as of this encounter (statuses as of 02/14/2023) [facility] History of Past illness Narrative* Problem Noted Date Diagnosed Date Resolved Date Acute pulmonary embolism 11/26/201701/2019 Last Assessment & Plan: Assessment: No signs of PE. Holding Eliquis until ortho staff puts in final recommendations. Hx of PE in October 2017 Currently on Apixiban PLAN: Resumed apixiban, 5mg Bid because no indication for 2.5mg BID S/P total knee arthroplasty, right 06/25/2017 07/08/2017 Overview: Added automatically from request for surgery [id number] Acute pain of right knee 06/25/201711/2017 Overview: Added automatically from request for surgery [id number] Patellar dislocation, right, initial encounter 04/20/2017 04/21/2017 Status post total knee repla cement using cement, right 04/16/2017 04/21/2017 Overview: Added automatically from request for surgery [id number] Acute pain of right knee 04/16/2017 Overview: Added automatically from request for surgery [id number] SUMMARY 04/03/2017 04/17/2017 Overview: Admit date: 04/03/2017 Reason for Admission/Observation: Unable to function Presentation: Patient is a 61-year-old female with PMH of MS, osteoarthritis, MRSA and herniated disc of the lumbar spine presenting to the ED via EMS for right knee pain 4 days that started suddenly when the patient fell 4 days ago when her right leg would not move with her other leg. Patient had a knee replacement on the left knee on January 28, 2017. She had her right knee replaced earlier this year. She denies head trauma or LOC. No numbness or tingling in the leg. She normally takes oxycodone at home for pain, but was unable to reach her pain medicine today and has not taken anything for pain today. She is unable to completely flex the knee due to pain. She was actually scheduled for surgery of the right knee today by Dr. Valle and orthopedics, but they would not do the surgery because of her recent fall and increased pain. She has apparently been urinating in a trash can next to her bed because she is unable to get up. She lives at home with her son who has been of minimal help. Hospital course: Consultants: Elieser Valle Needed for Discharge: Disposition: documented as of this encounter (statuses as of 03/30/2023) [facility] History of Past illness Narrative* Problem Noted Date Diagnosed Date Resolved Date Acute pulmonary embolism 11/26/201701/2019 Last Assessment & Plan: Assessment: No signs of PE. Holding Eliquis until ortho staff puts in final recommendations. Hx of PE in October 2017 Currently on Apixiban PLAN: Resumed apixiban, 5mg Bid because no indication for 2.5mg BID S/P total knee arthroplasty, right 06/25/2017 07/08/2017 Overview: Added automatically from request for surgery [id number] Acute pain of right knee 06/25/201711/2017 Overview: Added automatically from request for surgery [id number] Patellar dislocation, right, initial encounter 04/20/2017 04/21/2017 Status post total knee repla cement using cement, right 04/16/2017 04/21/2017 Overview: Added automatically from request for surgery [id number] Acute pain of right knee 04/16/2017 Overview: Added automatically from request for surgery [id number] SUMMARY 04/03/2017 04/17/2017 Overview: Admit date: 04/03/2017 Reason for Admission/Observation: Unable to function Presentation: Patient is a 61-year-old female with PMH of MS, osteoarthritis, MRSA and herniated disc of the lumbar spine presenting to the ED via EMS for right knee pain 4 days that started suddenly when the patient fell 4 days ago when her right leg would not move with her other leg. Patient had a knee replacement on the left knee on January 28, 2017. She had her right knee replaced earlier this year. She denies head trauma or LOC. No numbness or tingling in the leg. She normally takes oxycodone at home for pain, but was unable to reach her pain medicine today and has not taken anything for pain today. She is unable to completely flex the knee due to pain. She was actually scheduled for surgery of the right knee today by Dr. Valle and orthopedics, but they would not do the surgery because of her recent fall and increased pain. She has apparently been urinating in a trash can next to her bed because she is unable to get up. She lives at home with her son who has been of minimal help. Hospital course: Consultants: Elieser Valle Needed for Discharge: Disposition: documented as of this encounter (statuses as of 04/08/2023) [facility] History of Past illness Narrative* Problem Noted Date Diagnosed Date Resolved Date Acute pulmonary embolism 11/26/201701/2019 Last Assessment & Plan: Assessment: No signs of PE. Holding Eliquis until ortho staff puts in final recommendations. Hx of PE in October 2017 Currently on Apixiban PLAN: Resumed apixiban, 5mg Bid because no indication for 2.5mg BID S/P total knee arthroplasty, right 06/25/2017 07/08/2017 Overview: Added automatically from request for surgery [id number] Acute pain of right knee 06/25/201711/2017 Overview: Added automatically from request for surgery [id number] Patellar dislocation, right, initial encounter 04/20/2017 04/21/2017 Status post total knee repla cement using cement, right 04/16/2017 04/21/2017 Overview: Added automatically from request for surgery [id number] Acute pain of right knee 04/16/2017 Overview: Added automatically from request for surgery [id number] SUMMARY 04/03/2017 04/17/2017 Overview: Admit date: 04/03/2017 Reason for Admission/Observation: Unable to function Presentation: Patient is a 61-year-old female with PMH of MS, osteoarthritis, MRSA and herniated disc of the lumbar spine presenting to the ED via EMS for right knee pain 4 days that started suddenly when the patient fell 4 days ago when her right leg would not move with her other leg. Patient had a knee replacement on the left knee on January 28, 2017. She had her right knee replaced earlier this year. She denies head trauma or LOC. No numbness or tingling in the leg. She normally takes oxycodone at home for pain, but was unable to reach her pain medicine today and has not taken anything for pain today. She is unable to completely flex the knee due to pain. She was actually scheduled for surgery of the right knee today by Dr. Valle and orthopedics, but they would not do the surgery because of her recent fall and increased pain. She has apparently been urinating in a trash can next to her bed because she is unable to get up. She lives at home with her son who has been of minimal help. Hospital course: Consultants: Elieser Valle Needed for Discharge: Disposition: documented as of this encounter (statuses as of 04/14/2023) [facility] History of Past illness Narrative* Problem Noted Date Diagnosed Date Resolved Date Acute pulmonary embolism 11/26/201701/2019 Last Assessment & Plan: Assessment: No signs of PE. Holding Eliquis until ortho staff puts in final recommendations. Hx of PE in October 2017 Currently on Apixiban PLAN: Resumed apixiban, 5mg Bid because no indication for 2.5mg BID S/P total knee arthroplasty, right 06/25/2017 07/08/2017 Overview: Added automatically from request for surgery [id number] Acute pain of right knee 06/25/201711/2017 Overview: Added automatically from request for surgery [id number] Patellar dislocation, right, initial encounter 04/20/2017 04/21/2017 Status post total knee repla cement using cement, right 04/16/2017 04/21/2017 Overview: Added automatically from request for surgery [id number] Acute pain of right knee 04/16/2017 Overview: Added automatically from request for surgery [id number] SUMMARY 04/03/2017 04/17/2017 Overview: Admit date: 04/03/2017 Reason for Admission/Observation: Unable to function Presentation: Patient is a 61-year-old female with PMH of MS, osteoarthritis, MRSA and herniated disc of the lumbar spine presenting to the ED via EMS for right knee pain 4 days that started suddenly when the patient fell 4 days ago when her right leg would not move with her other leg. Patient had a knee replacement on the left knee on January 28, 2017. She had her right knee replaced earlier this year. She denies head trauma or LOC. No numbness or tingling in the leg. She normally takes oxycodone at home for pain, but was unable to reach her pain medicine today and has not taken anything for pain today. She is unable to completely flex the knee due to pain. She was actually scheduled for surgery of the right knee today by Dr. Valle and orthopedics, but they would not do the surgery because of her recent fall and increased pain. She has apparently been urinating in a trash can next to her bed because she is unable to get up. She lives at home with her son who has been of minimal help. Hospital course: Consultants: Elieser Valle Needed for Discharge: Disposition: documented as of this encounter (statuses as of 05/04/2023) [facility] History of Past illness Narrative* Problem Noted Date Diagnosed Date Resolved Date Acute pulmonary embolism 11/26/201701/2019 Last Assessment & Plan: Assessment: No signs of PE. Holding Eliquis until ortho staff puts in final recommendations. Hx of PE in October 2017 Currently on Apixiban PLAN: Resumed apixiban, 5mg Bid because no indication for 2.5mg BID S/P total knee arthroplasty, right 06/25/2017 07/08/2017 Overview: Added automatically from request for surgery [id number] Acute pain of right knee 06/25/201711/2017 Overview: Added automatically from request for surgery [id number] Patellar dislocation, right, initial encounter 04/20/2017 04/21/2017 Status post total knee repla cement using cement, right 04/16/2017 04/21/2017 Overview: Added automatically from request for surgery [id number] Acute pain of right knee 04/16/2017 Overview: Added automatically from request for surgery [id number] SUMMARY 04/03/2017 04/17/2017 Overview: Admit date: 04/03/2017 Reason for Admission/Observation: Unable to function Presentation: Patient is a 61-year-old female with PMH of MS, osteoarthritis, MRSA and herniated disc of the lumbar spine presenting to the ED via EMS for right knee pain 4 days that started suddenly when the patient fell 4 days ago when her right leg would not move with her other leg. Patient had a knee replacement on the left knee on January 28, 2017. She had her right knee replaced earlier this year. She denies head trauma or LOC. No numbness or tingling in the leg. She normally takes oxycodone at home for pain, but was unable to reach her pain medicine today and has not taken anything for pain today. She is unable to completely flex the knee due to pain. She was actually scheduled for surgery of the right knee today by Dr. Valle and orthopedics, but they would not do the surgery because of her recent fall and increased pain. She has apparently been urinating in a trash can next to her bed because she is unable to get up. She lives at home with her son who has been of minimal help. Hospital course: Consultants: Elieser Valle Needed for Discharge: Disposition: documented as of this encounter (statuses as of 05/11/2023) [facility] History of Past illness Narrative* Problem Noted Date Diagnosed Date Resolved Date Acute pulmonary embolism 11/26/201701/2019 Last Assessment & Plan: Assessment: No signs of PE. Holding Eliquis until ortho staff puts in final recommendations. Hx of PE in October 2017 Currently on Apixiban PLAN: Resumed apixiban, 5mg Bid because no indication for 2.5mg BID S/P total knee arthroplasty, right 06/25/2017 07/08/2017 Overview: Added automatically from request for surgery [id number] Acute pain of right knee 06/25/201711/2017 Overview: Added automatically from request for surgery [id number] Patellar dislocation, right, initial encounter 04/20/2017 04/21/2017 Status post total knee repla cement using cement, right 04/16/2017 04/21/2017 Overview: Added automatically from request for surgery [id number] Acute pain of right knee 04/16/2017 Overview: Added automatically from request for surgery [id number] SUMMARY 04/03/2017 04/17/2017 Overview: Admit date: 04/03/2017 Reason for Admission/Observation: Unable to function Presentation: Patient is a 61-year-old female with PMH of MS, osteoarthritis, MRSA and herniated disc of the lumbar spine presenting to the ED via EMS for right knee pain 4 days that started suddenly when the patient fell 4 days ago when her right leg would not move with her other leg. Patient had a knee replacement on the left knee on January 28, 2017. She had her right knee replaced earlier this year. She denies head trauma or LOC. No numbness or tingling in the leg. She normally takes oxycodone at home for pain, but was unable to reach her pain medicine today and has not taken anything for pain today. She is unable to completely flex the knee due to pain. She was actually scheduled for surgery of the right knee today by Dr. Valle and orthopedics, but they would not do the surgery because of her recent fall and increased pain. She has apparently been urinating in a trash can next to her bed because she is unable to get up. She lives at home with her son who has been of minimal help. Hospital course: Consultants: Elieser Valle Needed for Discharge: Disposition: documented as of this encounter (statuses as of 07/30/2023) [facility] History of Past illness Narrative* Problem Noted Date Diagnosed Date Resolved Date Acute pulmonary embolism 11/26/201701/2019 Last Assessment & Plan: Assessment: No signs of PE. Holding Eliquis until ortho staff puts in final recommendations. Hx of PE in October 2017 Currently on Apixiban PLAN: Resumed apixiban, 5mg Bid because no indication for 2.5mg BID S/P total knee arthroplasty, right 06/25/2017 07/08/2017 Overview: Added automatically from request for surgery [id number] Acute pain of right knee 06/25/201711/2017 Overview: Added automatically from request for surgery [id number] Patellar dislocation, right, initial encounter 04/20/2017 04/21/2017 Status post total knee repla cement using cement, right 04/16/2017 04/21/2017 Overview: Added automatically from request for surgery [id number] Acute pain of right knee 04/16/2017 Overview: Added automatically from request for surgery [id number] SUMMARY 04/03/2017 04/17/2017 Overview: Admit date: 04/03/2017 Reason for Admission/Observation: Unable to function Presentation: Patient is a 61-year-old female with PMH of MS, osteoarthritis, MRSA and herniated disc of the lumbar spine presenting to the ED via EMS for right knee pain 4 days that started suddenly when the patient fell 4 days ago when her right leg would not move with her other leg. Patient had a knee replacement on the left knee on January 28, 2017. She had her right knee replaced earlier this year. She denies head trauma or LOC. No numbness or tingling in the leg. She normally takes oxycodone at home for pain, but was unable to reach her pain medicine today and has not taken anything for pain today. She is unable to completely flex the knee due to pain. She was actually scheduled for surgery of the right knee today by Dr. Valle and orthopedics, but they would not do the surgery because of her recent fall and increased pain. She has apparently been urinating in a trash can next to her bed because she is unable to get up. She lives at home with her son who has been of minimal help. Hospital course: Consultants: Elieser Valle Needed for Discharge: Disposition: documented as of this encounter (statuses as of 07/31/2023) [facility] History of Past illness Narrative* Problem Noted Date Diagnosed Date Resolved Date Acute pulmonary embolism 11/26/201701/2019 Last Assessment & Plan: Assessment: No signs of PE. Holding Eliquis until ortho staff puts in final recommendations. Hx of PE in October 2017 Currently on Apixiban PLAN: Resumed apixiban, 5mg Bid because no indication for 2.5mg BID S/P total knee arthroplasty, right 06/25/2017 07/08/2017 Overview: Added automatically from request for surgery [id number] Acute pain of right knee 06/25/201711/2017 Overview: Added automatically from request for surgery [id number] Patellar dislocation, right, initial encounter 04/20/2017 04/21/2017 Status post total knee repla cement using cement, right 04/16/2017 04/21/2017 Overview: Added automatically from request for surgery [id number] Acute pain of right knee 04/16/2017 Overview: Added automatically from request for surgery [id number] SUMMARY 04/03/2017 04/17/2017 Overview: Admit date: 04/03/2017 Reason for Admission/Observation: Unable to function Presentation: Patient is a 61-year-old female with PMH of MS, osteoarthritis, MRSA and herniated disc of the lumbar spine presenting to the ED via EMS for right knee pain 4 days that started suddenly when the patient fell 4 days ago when her right leg would not move with her other leg. Patient had a knee replacement on the left knee on January 28, 2017. She had her right knee replaced earlier this year. She denies head trauma or LOC. No numbness or tingling in the leg. She normally takes oxycodone at home for pain, but was unable to reach her pain medicine today and has not taken anything for pain today. She is unable to completely flex the knee due to pain. She was actually scheduled for surgery of the right knee today by Dr. Valle and orthopedics, but they would not do the surgery because of her recent fall and increased pain. She has apparently been urinating in a trash can next to her bed because she is unable to get up. She lives at home with her son who has been of minimal help. Hospital course: Consultants: Elieser Valle Needed for Discharge: Disposition: documented as of this encounter (statuses as of 08/11/2023) [facility] note* Diagnosis Cellulitis of right lower extremity- Primary Cellulitis and abscess of leg, except foot documented in this encounter [facility] Work Phone: Evaluation note* Diagnosis Chronic pain of right knee- Primary documented in this encounter [facility] Work Phone: Evaluation note* Diagnosis Chronic anxiety Anxiety state, unspecified [facility] Chronic pain of right knee [facility] noteNo assessment information [facility] Work Phone: Evaluation [facility]* Diagnosis Chronic anxiety Anxiety state, unspecified [facility] Diagnosis Chronic pain of right knee [facility] Diagnosis Chronic anxiety Anxiety state, unspecified [facility] Diagnosis Infection associated with internal right knee prosthesis, subsequent encounter Chronic anxiety Anxiety state, unspecified [facility] Diagnosis Chronic anxiety- Primary Anxiety state, unspecified [facility] Diagnosis Infection associated with internal right knee prosthesis, subsequent encounter [facility] Diagnosis Infection associated with internal right knee prosthesis, subsequent encounter [facility] Diagnosis Chronic anxiety Anxiety state, unspecified Chronic pain of right knee Infection associated with internal right knee prosthesis, subsequent encounter [facility] Diagnosis Infection associated with internal right knee prosthesis, subsequent encounter Chronic pain of right knee [facility]* Diagnosis Breast pain, left- Primary Mastodynia documented in this encounter [facility] note* Diagnosis Infection associated with internal right knee prosthesis, subsequent encounter [facility] Diagnosis Status post total left knee replacement- Primary documented in this encounter [facility] note* Diagnosis Pain due to internal orthopedic prosthetic devices, implants and grafts, initial encounter ([facility]) documented in this encounter [facility] note* Diagnosis Chronic pain of right knee Chronic anxiety Anxiety state, unspecified [facility] Diagnosis Chronic anxiety Anxiety state, unspecified Chronic pain of right knee [facility] Diagnosis Chronic pain of right knee Infection associated with internal right knee prosthesis, subsequent encounter Chronic anxiety Anxiety state, unspecified [facility]* Diagnosis Status post total left knee replacement- Primary S/P revision of total knee, right [facility]* Diagnosis Infection associated with internal right knee prosthesis, subsequent encounter [facility]* Diagnosis Infection associated with internal right knee prosthesis, subsequent encounter Chronic pain of right knee Chronic anxiety Anxiety state, unspecified [facility] Diagnosis Chronic pain of right knee Chronic anxiety Anxiety state, unspecified Infection associated with internal right knee prosthesis, subsequent encounter [facility]* Diagnosis MS (multiple sclerosis) ([facility])- Primary Multiple sclerosis Daily headache Headache [facility] this [facility] Diagnosis Chronic anxiety Anxiety state, unspecified [facility] Diagnosis Infection associated with internal right knee prosthesis, subsequent encounter [facility]* Diagnosis Encounter for screening mammogram for breast cancer [facility]* Diagnosis Left leg swelling- Primary documented in this encounter [facility] note* Diagnosis MS (multiple sclerosis) (HCC) Multiple sclerosis Daily headache Headache Infection associated with internal right knee prosthesis, subsequent encounter Chronic anxiety Anxiety state, unspecified [facility] Diagnosis Infection associated with internal right knee prosthesis, subsequent encounter [facility]* Diagnosis MS (multiple sclerosis) (HCC) Multiple sclerosis Daily headache Headache Chronic anxiety Anxiety state, unspecified [facility]* Diagnosis Pyogenic arthritis of right knee joint, due to unspecified organism ([facility]) [facility] this [facility]* Diagnosis MS (multiple sclerosis) (HCC) Multiple sclerosis Daily headache Headache Infection associated with internal right knee prosthesis, subsequent encounter Chronic anxiety Anxiety state, unspecified [facility] Diagnosis MS (multiple sclerosis) (HCC) Multiple sclerosis Daily headache Headache Infection associated with internal right knee prosthesis, subsequent encounter Chronic anxiety Anxiety state, unspecified [facility]* Diagnosis Chronic anxiety Anxiety state, unspecified MS (multiple sclerosis) (HCC) Multiple sclerosis Daily headache Headache [facility]* Diagnosis Infection associated with internal right knee prosthesis, subsequent encounter [facility] Diagnosis Chronic anxiety Anxiety state, unspecified Infection associated with internal right knee prosthesis, subsequent encounter MS (multiple sclerosis) (HCC) Multiple sclerosis Daily headache Headache [facility] Diagnosis MS (multiple sclerosis) (HCC) Multiple sclerosis Daily headache Headache Chronic anxiety Anxiety state, unspecified Infection associated with internal right knee prosthesis, subsequent encounter [facility] Diagnosis Infection associated with internal right knee prosthesis, subsequent encounter Chronic anxiety Anxiety state, unspecified MS (multiple sclerosis) (HCC) Multiple sclerosis Daily headache Headache [facility] Diagnosis Chronic anxiety Anxiety state, unspecified Infection associated with internal right knee prosthesis, subsequent encounter MS (multiple sclerosis) (HCC) Multiple sclerosis Daily headache Headache [facility] Diagnosis Chronic anxiety Anxiety state, unspecified [facility] Diagnosis Acute respiratory failure with hypoxia (HCC)- Primary Acute respiratory failure Acute deep vein thrombosis (DVT) of right lower extremity, unspecified vein (HCC) Acute deep vein thrombosis (DVT) of popliteal vein of right lower extremity (HCC) Other acute pulmonary embolism without acute cor pulmonale (HCC) Hypoxia Hypoxemia Chronic prescription benzodiazepine use Primary osteoarthritis of left knee Primary localized osteoarthrosis, lower leg Chronic nonintractable headache, unspecified headache type- Primary Other acute pulmonary embolism without acute cor pulmonale (HCC) Chronic pain of right knee Essential hypertension Unspecified essential hypertension Multiple sclerosis (HCC) Multiple sclerosis History of pulmonary embolism Personal history of pulmonary embolism Chronic prescription benzodiazepine use Mechanical complication of internal orthopedic device, implant or graft, subsequent encounter Acute postoperative pain of right knee Acute pulmonary embolism (HCC) Other pulmonary embolism and infarction Chronic prescription benzodiazepine use Septic arthritis (HCC)- Primary Pyogenic arthritis, site unspecified Pyogenic arthritis of right knee joint, due to unspecified organism (HCC) Urinary tract infection Urinary tract infection, site not specified Chronic pain syndrome Hypoxia Hypoxemia History of pulmonary embolism Personal history of pulmonary embolism Obesity, Class I, BMI 30-34.9 Obesity, unspecified MS (multiple sclerosis) (HCC) Multiple sclerosis Daily headache Headache Chronic anxiety Anxiety state, unspecified Infection associated with internal right knee prosthesis, subsequent encounter [facility]* Diagnosis Acute respiratory failure with hypoxia (HCC)- Primary Acute respiratory failure Acute deep vein thrombosis (DVT) of right lower extremity, unspecified vein (HCC) Acute deep vein thrombosis (DVT) of popliteal vein of right lower extremity (HCC) Other acute pulmonary embolism without acute cor pulmonale (HCC) Hypoxia Hypoxemia Chronic prescription benzodiazepine use Primary osteoarthritis of left knee Primary localized osteoarthrosis, lower leg Chronic nonintractable headache, unspecified headache type- Primary Other acute pulmonary embolism without acute cor pulmonale (HCC) Chronic pain of right knee Essential hypertension Unspecified essential hypertension Multiple sclerosis (HCC) Multiple sclerosis History of pulmonary embolism Personal history of pulmonary embolism Chronic prescription benzodiazepine use Mechanical complication of internal orthopedic device, implant or graft, subsequent encounter Acute postoperative pain of right knee Acute pulmonary embolism (HCC) Other pulmonary embolism and infarction Chronic prescription benzodiazepine use Septic arthritis (HCC)- Primary Pyogenic arthritis, site unspecified Pyogenic arthritis of right knee joint, due to unspecified organism (HCC) Urinary tract infection Urinary tract infection, site not specified Chronic pain syndrome Hypoxia Hypoxemia History of pulmonary embolism Personal history of pulmonary embolism Obesity, Class I, BMI 30-34.9 Obesity, unspecified Infection associated with internal right knee prosthesis, subsequent encounter MS (multiple sclerosis) (HCC) Multiple sclerosis Daily headache Headache [facility]* Diagnosis Acute respiratory failure with hypoxia (HCC)- Primary Acute respiratory failure Acute deep vein thrombosis (DVT) of right lower extremity, unspecified vein (HCC) Acute deep vein thrombosis (DVT) of popliteal vein of right lower extremity (HCC) Other acute pulmonary embolism without acute cor pulmonale (HCC) Hypoxia Hypoxemia Chronic prescription benzodiazepine use Primary osteoarthritis of left knee Primary localized osteoarthrosis, lower leg Chronic nonintractable headache, unspecified headache type- Primary Other acute pulmonary embolism without acute cor pulmonale (HCC) Chronic pain of right knee Essential hypertension Unspecified essential hypertension Multiple sclerosis (HCC) Multiple sclerosis History of pulmonary embolism Personal history of pulmonary embolism Chronic prescription benzodiazepine use Mechanical complication of internal orthopedic device, implant or graft, subsequent encounter Acute postoperative pain of right knee Acute pulmonary embolism (HCC) Other pulmonary embolism and infarction Chronic prescription benzodiazepine use Septic arthritis (HCC)- Primary Pyogenic arthritis, site unspecified Pyogenic arthritis of right knee joint, due to unspecified organism (HCC) Urinary tract infection Urinary tract infection, site not specified Chronic pain syndrome Hypoxia Hypoxemia History of pulmonary embolism Personal history of pulmonary embolism Obesity, Class I, BMI 30-34.9 Obesity, unspecified Status post total left knee replacement [facility] Diagnosis Acute respiratory failure with hypoxia (HCC)- Primary Acute respiratory failure Acute deep vein thrombosis (DVT) of right lower extremity, unspecified vein (HCC) Acute deep vein thrombosis (DVT) of popliteal vein of right lower extremity (HCC) Other acute pulmonary embolism without acute cor pulmonale (HCC) Hypoxia Hypoxemia Chronic prescription benzodiazepine use Primary osteoarthritis of left knee Primary localized osteoarthrosis, lower leg Chronic nonintractable headache, unspecified headache type- Primary Other acute pulmonary embolism without acute cor pulmonale (HCC) Chronic pain of right knee Essential hypertension Unspecified essential hypertension Multiple sclerosis (HCC) Multiple sclerosis History of pulmonary embolism Personal history of pulmonary embolism Chronic prescription benzodiazepine use Mechanical complication of internal orthopedic device, implant or graft, subsequent encounter Acute postoperative pain of right knee Acute pulmonary embolism (HCC) Other pulmonary embolism and infarction Chronic prescription benzodiazepine use Septic arthritis (HCC)- Primary Pyogenic arthritis, site unspecified Pyogenic arthritis of right knee joint, due to unspecified organism (HCC) Urinary tract infection Urinary tract infection, site not specified Chronic pain syndrome Hypoxia Hypoxemia History of pulmonary embolism Personal history of pulmonary embolism Obesity, Class I, BMI 30-34.9 Obesity, unspecified Infection associated with internal right knee prosthesis, subsequent encounter MS (multiple sclerosis) (HCC) Multiple sclerosis Daily headache Headache Chronic anxiety Anxiety state, unspecified documented in this encounter [facility] note* Diagnosis Acute respiratory failure with hypoxia (HCC)- Primary Acute respiratory failure Acute deep vein thrombosis (DVT) of right lower extremity, unspecified vein (HCC) Acute deep vein thrombosis (DVT) of popliteal vein of right lower extremity (HCC) Other acute pulmonary embolism without acute cor pulmonale (HCC) Hypoxia Hypoxemia Chronic prescription benzodiazepine use Primary osteoarthritis of left knee Primary localized osteoarthrosis, lower leg Chronic nonintractable headache, unspecified headache type- Primary Other acute pulmonary embolism without acute cor pulmonale (HCC) Chronic pain of right knee Essential hypertension Unspecified essential hypertension Multiple sclerosis (HCC) Multiple sclerosis History of pulmonary embolism Personal history of pulmonary embolism Chronic prescription benzodiazepine use Mechanical complication of internal orthopedic device, implant or graft, subsequent encounter Acute postoperative pain of right knee Acute pulmonary embolism (HCC) Other pulmonary embolism and infarction Chronic prescription benzodiazepine use Septic arthritis (HCC)- Primary Pyogenic arthritis, site unspecified Pyogenic arthritis of right knee joint, due to unspecified organism (HCC) Urinary tract infection Urinary tract infection, site not specified Chronic pain syndrome Hypoxia Hypoxemia History of pulmonary embolism Personal history of pulmonary embolism Obesity, Class I, BMI 30-34.9 Obesity, unspecified Chronic anxiety Anxiety state, unspecified documented in this encounter [facility] note* Diagnosis Acute respiratory failure with hypoxia (HCC)- Primary Acute respiratory failure Acute deep vein thrombosis (DVT) of right lower extremity, unspecified vein (HCC) Acute deep vein thrombosis (DVT) of popliteal vein of right lower extremity (HCC) Other acute pulmonary embolism without acute cor pulmonale (HCC) Hypoxia Hypoxemia Chronic prescription benzodiazepine use Primary osteoarthritis of left knee Primary localized osteoarthrosis, lower leg Chronic nonintractable headache, unspecified headache type- Primary Other acute pulmonary embolism without acute cor pulmonale (HCC) Chronic pain of right knee Essential hypertension Unspecified essential hypertension Multiple sclerosis (HCC) Multiple sclerosis History of pulmonary embolism Personal history of pulmonary embolism Chronic prescription benzodiazepine use Mechanical complication of internal orthopedic device, implant or graft, subsequent encounter Acute postoperative pain of right knee Acute pulmonary embolism (HCC) Other pulmonary embolism and infarction Chronic prescription benzodiazepine use Septic arthritis (HCC)- Primary Pyogenic arthritis, site unspecified Pyogenic arthritis of right knee joint, due to unspecified organism (HCC) Urinary tract infection Urinary tract infection, site not specified Chronic pain syndrome Hypoxia Hypoxemia History of pulmonary embolism Personal history of pulmonary embolism Obesity, Class I, BMI 30-34.9 Obesity, unspecified Infection associated with internal right knee prosthesis, subsequent encounter MS (multiple sclerosis) (HCC) Multiple sclerosis Daily headache Headache documented in this encounter [facility] note* Diagnosis Acute respiratory failure with hypoxia (HCC)- Primary Acute respiratory failure Acute deep vein thrombosis (DVT) of right lower extremity, unspecified vein (HCC) Acute deep vein thrombosis (DVT) of popliteal vein of right lower extremity (HCC) Other acute pulmonary embolism without acute cor pulmonale (HCC) Hypoxia Hypoxemia Chronic prescription benzodiazepine use Primary osteoarthritis of left knee Primary localized osteoarthrosis, lower leg Chronic nonintractable headache, unspecified headache type- Primary Other acute pulmonary embolism without acute cor pulmonale (HCC) Chronic pain of right knee Essential hypertension Unspecified essential hypertension Multiple sclerosis (HCC) Multiple sclerosis History of pulmonary embolism Personal history of pulmonary embolism Chronic prescription benzodiazepine use Mechanical complication of internal orthopedic device, implant or graft, subsequent encounter Acute postoperative pain of right knee Acute pulmonary embolism (HCC) Other pulmonary embolism and infarction Chronic prescription benzodiazepine use Septic arthritis (HCC)- Primary Pyogenic arthritis, site unspecified Pyogenic arthritis of right knee joint, due to unspecified organism (HCC) Urinary tract infection Urinary tract infection, site not specified Chronic pain syndrome Hypoxia Hypoxemia History of pulmonary embolism Personal history of pulmonary embolism Obesity, Class I, BMI 30-34.9 Obesity, unspecified Infection associated with internal right knee prosthesis, subsequent encounter MS (multiple sclerosis) (HCC) Multiple sclerosis Daily headache Headache documented in this encounter [facility] note* Diagnosis Acute respiratory failure with hypoxia (HCC)- Primary Acute respiratory failure Acute deep vein thrombosis (DVT) of right lower extremity, unspecified vein (HCC) Acute deep vein thrombosis (DVT) of popliteal vein of right lower extremity (HCC) Other acute pulmonary embolism without acute cor pulmonale (HCC) Hypoxia Hypoxemia Chronic prescription benzodiazepine use Primary osteoarthritis of left knee Primary localized osteoarthrosis, lower leg Chronic nonintractable headache, unspecified headache type- Primary Other acute pulmonary embolism without acute cor pulmonale (HCC) Chronic pain of right knee Essential hypertension Unspecified essential hypertension Multiple sclerosis (HCC) Multiple sclerosis History of pulmonary embolism Personal history of pulmonary embolism Chronic prescription benzodiazepine use Mechanical complication of internal orthopedic device, implant or graft, subsequent encounter Acute postoperative pain of right knee Acute pulmonary embolism (HCC) Other pulmonary embolism and infarction Chronic prescription benzodiazepine use Septic arthritis (HCC)- Primary Pyogenic arthritis, site unspecified Pyogenic arthritis of right knee joint, due to unspecified organism (HCC) Urinary tract infection Urinary tract infection, site not specified Chronic pain syndrome Hypoxia Hypoxemia History of pulmonary embolism Personal history of pulmonary embolism Obesity, Class I, BMI 30-34.9 Obesity, unspecified Chronic anxiety Anxiety state, unspecified [facility]* Diagnosis Acute respiratory failure with hypoxia (HCC)- Primary Acute respiratory failure Acute deep vein thrombosis (DVT) of right lower extremity, unspecified vein (HCC) Acute deep vein thrombosis (DVT) of popliteal vein of right lower extremity (HCC) Other acute pulmonary embolism without acute cor pulmonale (HCC) Hypoxia Hypoxemia Chronic prescription benzodiazepine use Primary osteoarthritis of left knee Primary localized osteoarthrosis, lower leg Chronic nonintractable headache, unspecified headache type- Primary Other acute pulmonary embolism without acute cor pulmonale (HCC) Chronic pain of right knee Essential hypertension Unspecified essential hypertension Multiple sclerosis (HCC) Multiple sclerosis History of pulmonary embolism Personal history of pulmonary embolism Chronic prescription benzodiazepine use Mechanical complication of internal orthopedic device, implant or graft, subsequent encounter Acute postoperative pain of right knee Acute pulmonary embolism (HCC) Other pulmonary embolism and infarction Chronic prescription benzodiazepine use Septic arthritis (HCC)- Primary Pyogenic arthritis, site unspecified Pyogenic arthritis of right knee joint, due to unspecified organism (HCC) Urinary tract infection Urinary tract infection, site not specified Chronic pain syndrome Hypoxia Hypoxemia History of pulmonary embolism Personal history of pulmonary embolism Obesity, Class I, BMI 30-34.9 Obesity, unspecified MS (multiple sclerosis) (HCC) Multiple sclerosis Daily headache Headache Chronic anxiety Anxiety state, unspecified Infection associated with internal right knee prosthesis, subsequent encounter [facility]* Diagnosis Acute respiratory failure with hypoxia (HCC)- Primary Acute respiratory failure Acute deep vein thrombosis (DVT) of right lower extremity, unspecified vein (HCC) Acute deep vein thrombosis (DVT) of popliteal vein of right lower extremity (HCC) Other acute pulmonary embolism without acute cor pulmonale (HCC) Hypoxia Hypoxemia Chronic prescription benzodiazepine use Primary osteoarthritis of left knee Primary localized osteoarthrosis, lower leg Chronic nonintractable headache, unspecified headache type- Primary Other acute pulmonary embolism without acute cor pulmonale (HCC) Chronic pain of right knee Essential hypertension Unspecified essential hypertension Multiple sclerosis (HCC) Multiple sclerosis History of pulmonary embolism Personal history of pulmonary embolism Chronic prescription benzodiazepine use Mechanical complication of internal orthopedic device, implant or graft, subsequent encounter Acute postoperative pain of right knee Acute pulmonary embolism (HCC) Other pulmonary embolism and infarction Chronic prescription benzodiazepine use Septic arthritis (HCC)- Primary Pyogenic arthritis, site unspecified Pyogenic arthritis of right knee joint, due to unspecified organism (HCC) Urinary tract infection Urinary tract infection, site not specified Chronic pain syndrome Hypoxia Hypoxemia History of pulmonary embolism Personal history of pulmonary embolism Obesity, Class I, BMI 30-34.9 Obesity, unspecified Chronic anxiety Anxiety state, unspecified Infection associated with internal right knee prosthesis, subsequent encounter MS (multiple sclerosis) (HCC) Multiple sclerosis Daily headache [facility] Diagnosis Acute respiratory failure with hypoxia (HCC)- Primary Acute respiratory failure Acute deep vein thrombosis (DVT) of right lower extremity, unspecified vein (HCC) Acute deep vein thrombosis (DVT) of popliteal vein of right lower extremity (HCC) Other acute pulmonary embolism without acute cor pulmonale (HCC) Hypoxia Hypoxemia Chronic prescription benzodiazepine use Primary osteoarthritis of left knee Primary localized osteoarthrosis, lower leg Chronic nonintractable headache, unspecified headache type- Primary Other acute pulmonary embolism without acute cor pulmonale (HCC) Chronic pain of right knee Essential hypertension Unspecified essential hypertension Multiple sclerosis (HCC) Multiple sclerosis History of pulmonary embolism Personal history of pulmonary embolism Chronic prescription benzodiazepine use Mechanical complication of internal orthopedic device, implant or graft, subsequent encounter Acute postoperative pain of right knee Acute pulmonary embolism (HCC) Other pulmonary embolism and infarction Chronic prescription benzodiazepine use Septic arthritis (HCC)- Primary Pyogenic arthritis, site unspecified Pyogenic arthritis of right knee joint, due to unspecified organism (HCC) Urinary tract infection Urinary tract infection, site not specified Chronic pain syndrome Hypoxia Hypoxemia History of pulmonary embolism Personal history of pulmonary embolism Obesity, Class I, BMI 30-34.9 Obesity, unspecified Chronic anxiety Anxiety state, unspecified Infection associated with internal right knee prosthesis, subsequent encounter MS (multiple sclerosis) (HCC) Multiple sclerosis Daily headache Headache documented in this encounter [facility] Discharge instructions* Instructions* Nica Nolasco MD - 01/06/2021 Orthopaedic Surgery Discharge Instructions: You may bear weight as tolerated Apply Ice to affected area. This will help with pain. Elevate your right lower extremity/extremities. This will help with swelling. Take your medications and antibiotics as prescribed. Call Dr. Parrish's office to schedule a follow-up appointment as soon as possible documented in this [facility] Work Phone: Hospital Discharge instructions* Attachments The following attachments cannot be sent through Care Everywhere. * Dependent Edema Discharge Instructions (Hungarian) documented in this [facility] for referral (narrative)* Diagnostic Procedure Only (Routine) - Pending Review Specialty Diagnoses / Procedures Referred By Adryac t Referred To Contact BR IMAGING Diagnoses Breast pain, left Procedures US BREAST LTD LT US BREAST UNI REAL TIME WITH IMAGE LIMITED Moreno Oates MD [address] [address] Br Imaging [address] [place] [address] Referral ID Status Reason Start Date Expiration Date Visits Requested Visits Authorized [id number] Pending Review Auto-Generat ed Referral 2 04/16/2023 1 1 * Diagnostic Procedure Only (Routine) - Pending Review Specialty Diagnoses / Procedures Referred By Contac t Referred To Contact BR IMAGING Diagnoses Breast pain, left Procedures AMANDA DIAGNOSTIC BILAT DIAGNOSTIC MAMMOGRAPHY COMPUTER-AIDED DETCJ BI Moreno Oates MD [address] [place] [address] Br Imaging [address] [place] [address] Referral ID Status Reason Start Date Expiration Date Visits Requested Visits Authorized [id number] Pending Review Auto-Generat ed Referral 2 04/16/2023 1 1 [facility] for referral (narrative)* Diagnostic Procedure Only (Routine) - Closed Specialty Diagnoses / Procedures Referred By Andrea t Referred To Contact XR IMAGING Diagnoses Status post total left knee replacement Procedures XR KNEE POST OP 3V AP/LAT/MERCHANT LEFT RADIOLOGIC EXAMINATION KNEE 3 VIEWS Debbie Batista PA-C [address] [place] [address] Xr Imaging Referral ID Status Reason Start Date Expiration Date V isits Requested Visits Authorized [id number] Closed Auto-Generated Referral Financial Clearance Not Required 05/21/2022 06/20/2023 1 1 [facility] for referral (narrative)* Diagnostic Procedure Only (Routine) - Pending Review Specialty Diagnoses / Procedures Referred By Andrea flores Referred To Contact BR IMAGING Diagnoses Encounter for screening mammogram for breast cancer Procedures AMANDA SCREENING SCREENING MAMMOGRAPHY BI 2-VIEW BREAST INC CARYN Oates, Moreno Gong MD [address] [place] [address] [place] [address] Br Imaging [address] [place] [address] Referral ID Status Reason Start Date Expiration Date Visits Requested Visits Authorized [id number] Pending Review Auto-Generat ed Referral 11/12/2022 12/12/2023 1 1 [facility] for referral (narrative)* Diagnostic Procedure Only (Routine) - Closed Specialty Diagnoses / Procedures Referred By Andrea t Referred To Contact XR IMAGING Diagnoses Status post total left knee replacement Procedures XR KNEE POST OP 3V AP/LAT/MERCHANT LEFT RADIOLOGIC EXAMINATION KNEE 3 VIEWS Debbie Batsita PA-C [address] [place] [address] [place] [address] Referral ID Status Reason Start Date Expiration Date V isits Requested Visits Authorized [id number] Closed Auto-Generated Referral Financial Clearance Not Required 05/21/2022 06/20/2023 1 [facility]No reason for referral information availableWSelect [facility] Work Phone: Reason for visit Narrative* Diagnostic Procedure Only (Routine) - Closed Specialty Diagnoses / Procedures Referred By Andrea t Referred To Contact CT IMAGING Diagnoses Pain due to internal orthopedic prosthetic devices, implants and grafts, initial... Procedures CT KNEE WO IVCON LT Debbie Batista PA-C [id number] Imaging Referral ID Status Reason Start Date Expiration Date V isits Requested Visits Authorized [id number] Closed OON/Self Pay Override 05/22/2022 11/18/[address] [facility] Summary Purpose Family History No Family History Records FoundNo Family History Records FoundNo Family History Records FoundNo Family History Records FoundNo Family History Records FoundNo Family History Records FoundNo Family History Records FoundNo Family History Records FoundNo Family History Records FoundNo Family History Records Found Advance Directives No Advanced Directives Records FoundDocuments on File Type Date Recorded Patient Accounting Systems Manager Expl anation Advance Directive(s) 03/10/2018 4:43 PM Date Activated Date Inactivated Comments 12/01/2019 2:03 PM 12/19/2020 2:08 AM Latest Code Status on File Code Status Date Activated Date Inactivated Comments Full Code 12/01/2019 2:03 PM 12/19/2020 2:08 AM Documents on File Type Date Recorded Patient Accounting Systems Manager Expl anation Advance Directives and Living Will Power of Wool Merchant Latest Code Status on File Code Status Date Activated Date Inactivated Comments Full Code 11/04/2019 9:10 PM Limited 10/12/2019 1:14 PM 10/25/2019 6:17 PM Intubation/Re-intubation: No Defibrillation/Cardioversion: No Chest Compressions: No Resuscitative Medications: No Other (Specify in Free Text): OK for NIV Full Code 10/03/2019 11:26 AM 10/12/2019 1:14 PM Documents on File Type Date Recorded Patient Accounting Systems Manager Expl anation ACP-Advance Directive ACP-Power of Wool Merchant DNR Documentation 10/27/2019 8:41 AM Latest Code Status on File Code Status Date Activated Date Inactivated Comments Full Code 01/27/2020 11:12 PM Full Code 11/04/2019 9:10 PM 11/05/2019 1:25 AM Latest Code Status on File Code Status Date Activated Date Inactivated Comments Limited 10/12/2019 1:14 PM Documents on File Type Date Recorded Patient Accounting Systems Manager Expl anation ACP-Advance Directive ACP-Power of Wool Merchant ACP-Do Not Resuscitate 10/27/2019 8:41 AM Latest Code Status on File Code Status Date Activated Date Inactivated Comments Full Code 01/27/2020 11:12 PM 02/03/2020 6:47 PM Documents on File Type Date Recorded Patient Accounting Systems Manager Expl anation Advance Directive(s) 01/06/2021 4:29 AM Advance Directive(s) 12/19/2020 2:45 AM Advance Directive(s) 07/09/2018 1:52 AM Advance Directive(s) 07/08/2018 3:02 PM Advance Directive(s) 03/10/2018 10:33 AM Advance Directive(s) 03/10/2018 4:44 PM Advance Directive(s) 03/10/2018 4:43 PM Advance Directive(s) 03/02/2018 2:56 PM Advance Directive(s) 11/26/2017 5:16 PM Advance Directive(s) 10/16/2017 3:01 PM Advance Directive(s) 09/03/2017 1:45 PM Advance Directive(s) 08/20/2017 3:25 PM Advance Directive(s) 07/06/2017 11:44 AM Advance Directive(s) 06/25/2017 10:00 AM Advance Directive(s) 06/02/2017 12:30 PM Advance Directive(s) 05/19/2017 9:44 AM Advance Directive(s) 04/20/2017 11:37 AM Advance Directive(s) 04/03/2017 12:42 PM Advance Directive(s) 03/24/2017 1:46 PM Advance Directive(s) 03/03/2017 10:41 AM Advance Directive(s) 02/01/2017 1:51 PM Advance Directive(s) 01/28/2017 9:19 AM Advance Directive(s) 01/13/2017 8:07 AM Advance Directive(s) 12/13/2016 2:07 PM Advance Directive(s) 12/11/2016 1:03 AM Advance Directive(s) 12/07/2016 12:48 PM Advance Directive(s) 12/04/2016 11:19 AM Advance Directive(s) 12/03/2016 11:14 AM Advance Directive(s) 11/05/2016 2:50 PM Documents on File Type Date Recorded Patient Accounting Systems Manager Expl anatkayla Advance Directive(s) 03/10/2018 4:43 PM Latest Code Status on File Code Status Date Activated Date Inactivated Comments Full Code 12/01/2019 2:03 PM 12/19/2020 2:08 AM Documents on File Type Date Recorded Patient Accounting Systems Manager Expl anation DNR (Do Not Resuscitate) 10/03/2019 DNR (Do Not Resuscitate) 04/26/2015 Latest Code Status on File Code Status Date Activated Date Inactivated Comments Full Code 12/01/2019 2:03 PM 12/19/2020 2:08 AM Date Activated Date Inactivated Comments 12/01/2019 2:03 PM 12/19/2020 2:08 AM History of Present Illness * Jan Zepeda MD - 11/04/2019 9:29 PM EDT Discussed Mrs. Nguyen's case with Dr. Parrish ([facility] Orthopaedic Surgeon). Patient to be transferred to [facility]. Discussed with [facility] call center and transportation. Discussed with IMS at [facility] - will be accepting transfer. Transfer pending. Please page [phone] or well control instructor resident with questions or concerns. Jan Zepeda MD PGY-2, Orthopaedic Surgery [phone] 11/04/2019 .9:46 PM * Jan Zepeda MD - 11/04/2019 8:15 PM EDT documented in this encounter* Delisa Guaman RN - 02/03/2020 3:48 PM EDT Report called to [facility]. Informed them that the patient is scheduled to be picked up at 1600. * Kristen Howard OTA - 02/03/2020 1:37 PM EDT Occupational Therapy Facility/Department: [facility] 2E TELEMETRY Daily Treatment Note NAME: Charlie Nguyen : 1955 Date of Service: 02/03/2020 Assessment REQUIRES OT FOLLOW UP: Yes Subjective General Chart Reviewed: Yes Subjective Subjective: Pt eating and states I can't do any therapy today, you can't touch my leg. It's severepain General Comment Comments: Pt declining therapy. Upon chart review, is supposed to d/o to SNF later today. ARTHUR Tierney * Yamilka Yeboah APRN - [place] - 02/02/2020 12:09 PM EDT Hospitalist Progress Note 02/02/2020 12:09 PM Subjective: Admit Date: 01/27/2020 PCP: Moreno Oates Room#: 255/2551 Interval History: c/o quite a bit of right knee pain today. Tramadol partially effective. Patient is on oxygen (new) denies SOB. Has intermittent cough. Denies chest pain, abdominal pain, nausea, vomiting, diarrhea, constipation, fevers, or chills. DIET GENERAL; Dietary Nutrition Supplements: Low Calorie High Protein Supplement Patient Vitals for the past 96 hrs (Last 3 readings): Weight 02/02/20 0550 236 lb 6.4 oz (107.2 kg) 02/01/20 0029 238 lb 12.8 oz (108.3 kg) 01/31/20 0525 240 lb 12.8 oz (109.2 kg) Medications: nicotine 1 patch Transdermal Daily pregabalin 75 mg Oral BID PARoxetine 30 mg Oral QAM metoprolol tartrate 50 mg Oral BID pantoprazole 40 mg Oral Daily apixaban 5 mg Oral BID sodium chloride flush 10 mL Intravenous 2 times per day LABS: CBC: Recent Labs 01/31/20 0549 02/02/20 0340 WBC 5.6 6.4 RBC 4.26 4.36 HGB 11.8 11.9 HCT 36.8 37.6 MCV 86.4 86.3 RDW 15.8* 16.0* PLT 264 298 BMP: Recent Labs 01/31/20 0549 02/02/20 0340 NA 140 140 K 3.7 4.0 CL 105 108* CO2 24 28 BUN 8 27* CREATININE 0.41* 0.63 GLUCOSE 93 90 CALCIUM 9.0 8.0* ANIONGAP 11 4 Procalcitonin: Lab Results Component Value Date PROCAL <0.10 10/20/2019 Objective: Vitals: BP 135/75 Pulse 61 Temp 97.1 F (36.2 C) (Temporal) Resp 19 Ht 5' 11 (1.803 m) Wt236 lb 6.4 oz (107.2 kg) SpO2 93% BMI 32.97 kg/m Pulse Ox: SpO2 Av.8 % Min: 88 % Max: 95 % Supplemental O2: O2 Flow Rate (L/min): 2.5 L/min General appearance: No apparent distress HEENT: Normal cephalic, atraumatic without obvious deformity. Pupils equal, round, and reactive to light. Neck: Supple, with full range of motion. No jugular venous distention. Respiratory: Normal respiratory effort. Clear to auscultation, diminished Cardiovascular: Regular rate and rhythm with normal S1/S2 Abdomen: Soft, non-tender, non-distended with normal bowel Musculoskeletal: No clubbing, cyanosis or edema bilaterally; right knee pain Skin: Skin color, texture, turgor normal. No rashes or lesions. Neurologic: Neurovascularly intact without any focal sensory/motor deficits. Cranial nerves: II-XIIintact, grossly non-focal. Assessment/Plan 1. Failure to thrive/worsening debility: PT/OT rec SNF. 2. Acute metabolic encephalopathy, improving 3. Hypoxia, etiology unclear. No current respiratory complaints. Add IS/ check CXR 4. Stg II pressure ulcer, Right buttocks (POA): continue mgmt per wound care. Frequent turning/repositioning 5. Hypokalemia, improved 6. HTN 7. Acute right knee pain, recent septic arthritis: continue pain mgmt->will DC Tramadol d/t potential to lower seizure threshold 8. UTI, s/p treatment 9. DVT on Eliquis 10. MS 11. GERD 12. Prev seizure 13. MDD Past Medical History: Diagnosis Date Anxiety Brain tumor (HCC) 02/01/2015 Found small tumor, has appt with neurologist in May Depression GERD (gastroesophageal reflux disease) Headache Ischemic colitis (HCC) MS (multiple sclerosis) (HCC) -am labs, replace lytes prn -increase activity -DVT prophylaxis: [] Lovenox [] Heparin [] SCDs [x] Encourage ambulation [x] Already on Anticoagulation Advance Directive: Full Code Discharge planning: Needs SNF Division of Hospitalist Medicine Inpatient Medical Services * Elidia Solis MD - 02/02/2020 11:41 AM EDT I filled out the expert evaluation and faxed it to [phone] * Deja Koehler MD - 02/02/2020 8:05 AM EDT H: Recent Labs 02/02/20 0340 HGB 11.9 WBC 6.4 VS: Blood pressure 120/72, pulse 57, temperature 97.2 F (36.2 C), temperature source Temporal, resp. rate 20, height 5' 11 (1.803 m), weight 236 lb 6.4 oz (107.2 kg), SpO2 94 %, not currently . More alert, more conversant. Still has right knee pain complaints. PE: Right knee shows ecchymosis now. No effusion. ROM 0-100 with mild pain. POP diffusely throughout entire RLE thigh, knee and tibia. Xray: Bone Scan shows diffuse uptake around both componenets IMP: Right knee contusion Hx R TKA PLAN: Doubt infection -- no effusion, erythema or warmth. ROM too good for septic arthritis. ESR and CRP elevated -- however, has UTI. Contusion now present on knee Bone scan can show uptake up to 2 yrs post surgery -- patient doesn't know when her revision was done. Would proceed to mobilize as able, and proceed w/ disposition. Once UTI resolved, as outpatient, ESR and CRP can be repeated. * Abimbola Taylor PTA - 02/01/2020 2:29 PM EDT Physical Therapy Facility/Department: [facility] 2E TELEMETRY Daily Treatment Note NAME: Charlie Nguyen : 1955 Date of Service: 02/01/2020 Discharge Recommendations: Subacute/Halfway Facility Assessment Assessment: Pt still presents with decreased functional mobility. Pt still limited by fatigue, edurance, pain and overall cognition. Pt very sleepy today. Pt has been off the floor multiple times today for testing. Pt required 100% verbal and tactile cues to complete rolling side to side. Pt is an overall mod A x 1 to help elevate and roll to get new sheets. Pt needed mod A x 1 to bridge. Pt needed max A x 1 to perform a straight leg raise. Pt declined to sit EOB or attempt to stand. Pt is expected to benefit from continued therapy in order to increase overall functional mobility. REQUIRES PT FOLLOW UP: Yes Activity Tolerance Activity Tolerance: Patient limited by fatigue;Patient limited by pain;Patient limited by endurance;Patient limited by cognitive status Patient Diagnosis(es): The primary encounter diagnosis was Generalized weakness. Diagnoses of Hypokalemia, Chronic pain of right knee, Inability to ambulate due to knee, and Misuse of prescription only drugs (HCC) were also pertinent to this visit. has a past medical history of Anxiety, Brain tumor ([facility]), Depression, GERD (gastroesophageal refluxdisease), Headache, Ischemic colitis (HCC), and MS (multiple sclerosis) ([facility]). has a past surgical history that includes Hysterectomy; Tubal ligation; knee surgery (Right, 06/2016); and bronchoscopy (10/06/2019). Restrictions Restrictions/Precautions Restrictions/Precautions: General Precautions, Fall Risk Required Braces or Orthoses?: No Subjective General Chart Reviewed: Yes Family / Caregiver Present: No Subjective Subjective: Pt agreeable to bed mobility and rolling in order to get cleaned up and perform pericare. After getting cleaned up pt declined to sit EOB of try standing. Pt very sleepy and took increased time to respond. Pt with increased knee pain and requesting stronger medication. General Comment Comments: Per RN okay to see. Just returned back from bone scan. Pain Screening Patient Currently in Pain: Yes Pain Assessment Pain Assessment: 0-10 Pain Level: 6 Pain Type: Acute pain Pain Location: Knee Pain Orientation: Right Pain Descriptors: Aching Pain Frequency: Intermittent Non-Pharmaceutical Pain Intervention(s): Ambulation/Increased Activity Vital Signs Patient Currently in Pain: Yes Objective Bed mobility Bridging: Moderate assistance Rolling to Left: Moderate assistance Rolling to Right: Moderate assistance Comment: Denied dizziness. Pt needed increased time to complete. Pt needed verbal and tactile cues for hand placement and feet placement to help with rolling side to side. Pt still needed mod A x 1 to help turn trunk over. Pt demonstrates increased difficulty bridging in bed in order for new sheetsto be placed. Pt with rest breaks due to increase pain. Pt confused with instructions with bed mobility. Pt could not perform a straight leg raise and needed max A x 1 to complete. Pt declined any further activity. Pt declined sitting EOB, stated she was too tired and painful to sit EOB. Pt has been on/off the floor multiple times today for testing. Goals Short term goals Time Frame for Short term goals: 1 week. Short term goal 1: Charlie will perform all mobility with standby assistance.(not met) Short term goal 2: Charlie will perform all transfers with minimum assistance.(N/A) Short term goal 3: Charlie will ambulate 20 feet using a FWW with minimum assistance.(N/A) Patient Goals Patient goals : GO HOME!! Plan Plan Times per week: 4 visits Times per day: Daily Plan weeks: 1 Current Treatment Recommendations: Strengthening, Transfer Training, Endurance Training, Patient/Caregiver Education & Training, Safety Education & Training, Home Exercise Program, FunctionalMobility Training, Balance Training, Gait Training Safety Devices Type of devices: All fall risk precautions in place, Call light within reach, Left in bed, Patient at risk for falls, Gait belt, Nurse notified, Bed alarm in place Restraints Initially in place: No Therapy Time Individual Concurrent Group Co-treatment Time In 1357 Time Out 1406 Minutes 9 Timed Code Treatment Minutes: 8 Minutes(1 ther act) Abimbola Taylor PTA * Kiley Goff PA-C - 02/01/2020 11:57 AM EDT Hospitalist Progress Note 02/01/2020 11:57 AM Subjective: Admit Date: 01/27/2020 PCP: Moreno Oates Room#: 255/2551 Interval History: Pt had a better night, avasys was discontinued this am. She is sleeping upon entry into the room and does not answer questions although she is awake. DIET GENERAL; Dietary Nutrition Supplements: Low Calorie High Protein Supplement Patient Vitals for the past 96 hrs (Last 3 readings): Weight 02/01/20 0029 238 lb 12.8 oz (108.3 kg) 01/31/20 0525 240 lb 12.8 oz (109.2 kg) 01/30/20 0449 255 lb 8 oz (115.9 kg) 24HR INTAKE/OUTPUT: Intake/Output Summary (Last 24 hours) at 02/01/2020 1157 Last data filed at 01/31/2020 2235 Gross per 24 hour Intake 300 ml Output 800 ml Net -500 ml Medications: nicotine 1 patch Transdermal Daily pregabalin 75 mg Oral BID PARoxetine 30 mg Oral QAM metoprolol tartrate 50 mg Oral BID pantoprazole 40 mg Oral Daily apixaban 5 mg Oral BID sodium chloride flush 10 mL Intravenous 2 times per day LABS: CBC: Recent Labs 01/30/20 0501/31/20 0549 WBC 7.5 5.6 RBC 3.62* 4.26 HGB 10.1* 11.8 HCT 32.0* 36.8 MCV 88.6 86.4 RDW 16.4* 15.8* PLT 257 264 BMP: Recent Labs 01/30/20 0519 01/31/20 0549 NA 140 140 K 3.9 3.7 CL 108* 105 CO2 25 24 BUN 13 8 CREATININE 0.40* 0.41* GLUCOSE 95 93 CALCIUM 8.0* 9.0 ANIONGAP 8 11 LIVER PROFILE: No results for input(s): AST, ALT, BILITOT, ALKPHOS, LABALBU, PROT in the last 72 hours. PT/INR: No results for input(s): PROTIME, INR in the last 72 hours. CARDIAC ENZYMES: No results for input(s): TROPONINI in the last 72 hours. Procalcitonin: Lab Results Component Value Date PROCAL <0.10 10/20/2019 Objective: Vitals: BP (!) 142/86 Pulse 63 Temp 97.9 F (36.6 C) (Temporal) Resp 18 Ht 5' 11 (1.803 m) Wt 238 lb 12.8 oz (108.3 kg) SpO2 93% BMI 33.31 kg/m Pulse Ox: SpO2 Av.8 % Min: 89 % Max: 93 % Supplemental O2: O2 Flow Rate (L/min): 2 L/min General appearance: No apparent distress, appears stated age and cooperative with exam. Flat affect, does not make eye contact. HEENT: Normal cephalic, atraumatic without obvious deformity. Extra ocular muscles intact. Neck: Supple, with full range of motion. No jugular venous distention. Trachea midline. Respiratory: Normal respiratory effort. Clear to auscultation, bilaterally without Rales/Wheezes/Rhonchi. Cardiovascular: Regular rate and rhythm with normal S1/S2 without murmurs, rubs or gallops. Abdomen: Soft, obese abdomen, non-tender, non-distended with normal bowel sounds. No rebound or guarding. Musculoskeletal: No clubbing, cyanosis or edema bilaterally. Full range of motion without deformity. Skin: Skin color, texture, turgor normal. No rashes or lesions. Neurologic: Neurovascularly intact without any focal sensory/motor deficits. Cranial nerves: II-XIIintact, grossly non-focal. Psych: Pt is alert but flat. Will not make eye contact or participate in encounter. Assessment/Plan 1. Failure to thrive and debility: PT/OT ordered and recommending SNF, CM consulted for assistance in DC planning. Please see SW note from 01/29, long discussion with daughter about guardianship etc. Pt is now agreeable to SNF. Psych eval ordered as pt's mentation waxes and wanes. Psych determined that pt does not have decision making capacity. 2. AMS: Pt improved today, psych consult completed. 3. Hypokalemia: improved, 3.7 this am. 4. HTN: BP improved, will add home meds. 5. Recent hx of septic arthritis of R knee/R knee pain: Ortho following, pt still complaining of significant pain. Ordered bone scan to assess for occult injury. 6. GERD 7. DVT: in past, on eliquis 8. UTI: pt has completed course of abx. -am labs, replace lytes prn -increase activity -DVT prophylaxis: [] Lovenox [] Heparin [] SCDs [x] Encourage ambulation [x] Already on Anticoagulation Advance Directive: Full Code Discharge planning: Pt agreeable to SNF, pending placement Signed: Kiley Goff PA-C Inpatient Medical Services 02/01/2020, 11:57 AM * Arelis Carrera RN - 02/01/2020 8:41 AM EDT avaysis discontinued 9-2 at 8:30 am * Deja Koehler MD - 02/01/2020 8:19 AM EDT H: Recent Labs 01/31/20 0549 HGB 11.8 WBC 5.6 VS: Blood pressure (!) 142/86, pulse 63, temperature 97.9 F (36.6 C), temperature source Temporal, resp. rate 18, height 5' 11 (1.803 m), weight 238 lb 12.8 oz (108.3 kg), SpO2 93 %, not currently . More alert, but flat affect. Complains of R knee pain PE: Unable to elevate either leg. No focal findings to RLE -- no swelling, effusion, erythema, fluctuance. Has complaints of POP everywhere in RLE from hip to foot. Xray: n/a IMP: Hx R TKA revision, pain post fall PLAN: Addiction medicine note reviewed. Patient not able to give any useful information. Complains of pain, but xray and exam are normal. Hx of fall, but her history is not accurate. Will get BS to evaluate for occult injury. * Aziza Cole RN - 02/01/2020 6:17 AM EDT Pt refused morning labs * Abimbola Taylor PTA - 01/31/2020 11:12 AM EDT Physical Therapy Facility/Department: [facility] 2E TELEMETRY Daily Treatment Note NAME: Charlie Nguyen : 1955 Date of Service: 01/31/2020 Pt's chart reviewed. Attempted to see pt. Pt declined therapy stating she was in too much pain. Declined to get OOB or even participate in bed level exercises. Pt stated she would work with therapy tomorrow. Will continue to follow and re-attempt. Abimbola Taylor PTA * Kiley Goff PA-C - 01/31/2020 11:11 AM EDT Hospitalist Progress Note 01/31/2020 11:11 AM Subjective: Admit Date: 01/27/2020 PCP: oMreno Oates Room#: [id number] Interval History: Overnight the pt became increasingly agitated, and avasys was placed. She was also started back on valium. This morning when talking to pt she started describing some hallucinations, that she saw some white moths kill her cats this morning. She is completely convinced that this isreality. She is also very upset and demanding that I get her a cigarette. She has no physical compla ints at this time, but also unsure how reliable of a historian she is at the moment. DIET GENERAL; Dietary Nutrition Supplements: Low Calorie High Protein Supplement Patient Vitals for the past 96 hrs (Last 3 readings): Weight 01/31/20 0525 240 lb 12.8 oz (109.2 kg) 01/30/20 0449 255 lb 8 oz (115.9 kg) 01/29/20 0615 251 lb 8 oz (114.1 kg) 24HR INTAKE/OUTPUT: Intake/Output Summary (Last 24 hours) at 01/31/2020 1111 Last data filed at 01/30/2020 1748 Gross per 24 hour Intake 1085 ml Output 4 ml Net 1081 ml Medications: nicotine 1 patch Transdermal Daily PARoxetine 30 mg Oral QAM metoprolol tartrate 50 mg Oral BID pantoprazole 40 mg Oral Daily apixaban 5 mg Oral BID sodium chloride flush 10 mL Intravenous 2 times per day divalproex 250 mg Oral 3 times per day LABS: CBC: Recent Labs 01/30/20 0519 01/31/20 0549 WBC 7.5 5.6 RBC 3.62* 4.26 HGB 10.1* 11.8 HCT 32.0* 36.8 MCV 88.6 86.4 RDW 16.4* 15.8* PLT 257 264 BMP: Recent Labs 01/30/20 0519 01/31/20 0549 NA 140 140 K 3.9 3.7 CL 108* 105 CO2 25 24 BUN 13 8 CREATININE 0.40* 0.41* GLUCOSE 95 93 CALCIUM 8.0* 9.0 ANIONGAP 8 11 LIVER PROFILE: No results for input(s): AST, ALT, BILITOT, ALKPHOS, LABALBU, PROT in the last 72 hours. PT/INR: No results for input(s): PROTIME, INR in the last 72 hours. CARDIAC ENZYMES: No results for input(s): TROPONINI in the last 72 hours. Procalcitonin: Lab Results Component Value Date PROCAL <0.10 10/20/2019 Objective: Vitals: BP (!) 165/96 Pulse 63 Temp 99.8 F (37.7 C) (Temporal) Resp 18 Ht 5' 11 (1.803 m) Wt 240 lb 12.8 oz (109.2 kg) Comment: Pt moved bed, RN notified SpO2 91% BMI 33.58 kg/m Pulse Ox: SpO2 Av.5 % Min: 91 % Max: 96 % Supplemental O2: O2 Flow Rate (L/min): 2 L/min General appearance: No apparent distress, appears stated age and cooperative with exam. More alert today, flat affect, agitated. HEENT: Normal cephalic, atraumatic without obvious deformity. Extra ocular muscles intact. Neck: Supple, with full range of motion. No jugular venous distention. Trachea midline. Respiratory: Normal respiratory effort. Clear to auscultation, bilaterally without Rales/Wheezes/Rhonchi. Cardiovascular: Regular rate and rhythm with normal S1/S2 without murmurs, rubs or gallops. Abdomen: Soft, obese abdomen, non-tender, non-distended with normal bowel sounds. No rebound or guarding. Musculoskeletal: No clubbing, cyanosis or edema bilaterally. Full range of motion without deformity. Skin: Skin color, texture, turgor normal. No rashes or lesions. Neurologic: Neurovascularly intact without any focal sensory/motor deficits. Cranial nerves: II-XIIintact, grossly non-focal. Psych: Pt is oriented to place, but not situation. Describing hallucinations. Assessment/Plan 1. Failure to thrive and debility: PT/OT ordered and recommending SNF, CM consulted for assistance in DC planning. Please see SW note from yesterday, long discussion with daughter about guardianship etc. Pt may now be agreeable to SNF but her mentation waxes and wanes, so psych was consulted as well. 2. AMS: pt is agitated and hallucinating, avasys had to be placed overnight. Valium restarted on ptdue to agitation. Psych consult pending. 3. Hypokalemia: improved, 3.7 this am. 4. HTN: BP improved, will add home meds. 5. Recent hx of septic arthritis of R knee/R knee pain: imaging ordered yesterday of bilateral knees due to complaints of pain and possible fall. Showed R joint edema and possible effusion. Ortho wasconsulted and recommended watching and stating the knee looked fine. 6. GERD 7. DVT: in past, on eliquis 8. UTI: pt has completed course of abx. -am labs, replace lytes prn -increase activity -DVT prophylaxis: [] Lovenox [] Heparin [] SCDs [x] Encourage ambulation [x] Already on Anticoagulation Advance Directive: Full Code Discharge planning: TBD Signed: Kiley Goff PA-C Inpatient Medical Services 01/31/2020, 11:11 AM * Larissa Johnson OTA - 01/31/2020 11:07 AM EDT Occupational Therapy Facility/Department: [facility] 2E TELEMETRY Daily Treatment Note NAME: Charlie Nguyen : 1955 Date of Service: 01/31/2020 Discharge Recommendations: Subacute/Halfway Facility Assessment Performance deficits / Impairments: Decreased functional mobility ;Decreased ADL status;Decreased strength;Decreased ROM;Decreased safe awareness;Decreased cognition;Decreased endurance;Decreased balance;Decreased high-level IADLs Assessment: Pt required increased assist for bed mobiltiy and was unable to stand today from the bed to FWW after multiple attempts. Pt demonstrated decreased cognition to initiate and sequence bed mobiltiy and transfers and required repeated cues and instructions to attempt. Pt disoriented to situation and time today but oriented to person and place. Pt is demonstrating a decline since initial eval with cognition and transfers. History: Pt admitted with failure to thrive, fall and hypoxia. PMH is listed above and is significant for a brain tumor and MS. Assistance / Modification: max assist OT Education: OT Role;Plan of Care;Transfer Training;Equipment;Orientation Barriers to Learning: cognition REQUIRES OT FOLLOW UP: Yes Activity Tolerance Activity Tolerance: Patient limited by fatigue;Treatment limited secondary to decreased cognition;Patient limited by pain Safety Devices Safety Devices in place: Yes Type of devices: All fall risk precautions in place;Call light within reach;Gait belt;Patient at risk for falls;Left in bed;Nurse notified;Bed alarm in place(Avasys in room) Patient Diagnosis(es): The primary encounter diagnosis was Generalized weakness. Diagnoses of Hypokalemia, Chronic pain of right knee, Inability to ambulate due to knee, and Misuse of prescription only drugs (HCC) were also pertinent to this visit. has a past medical history of Anxiety, Brain tumor (HCC), Depression, GERD (gastroesophageal refluxdisease), Headache, Ischemic colitis (HCC), and MS (multiple sclerosis) (HCC). has a past surgical history that includes Hysterectomy; Tubal ligation; knee surgery (Right, 06/2016); and bronchoscopy (10/06/2019). Restrictions Restrictions/Precautions Restrictions/Precautions: General Precautions, Fall Risk Required Braces or Orthoses?: No Subjective General Chart Reviewed: Yes Patient assessed for rehabilitation services?: Yes Family / Caregiver Present: No Subjective Subjective: Pt awake in bed with Avasys in room upon approach. Pt hesitantly agreeable to therapy and states she needs her medication prior to therapy. Pt states right knee is painful, but unable to quantify. General Comment Comments: Nursing reports OK to treat and states pt has received all her medication this am. Nursing spoke with pt regarding medication. Nursing made aware that a bag of Rx medication was found on pt's window sill near her purse during session. Nursing secured medication in med room. Pain Assessment Pain Assessment: Faces Bucio-Petersen Pain Rating: Hurts little more Pain Type: Chronic pain Pain Location: Knee Pain Orientation: Right Vital Signs Patient Currently in Pain: Yes Orientation Orientation Overall Orientation Status: Impaired Orientation Level: Oriented to place;Oriented to person;Disoriented to time;Disoriented to situation Balance Sitting Balance: Supervision Functional Mobility Functional Mobility Comments: Pt unable to stand at FWW to take side steps at EOB as pt agreeable to at the beginning of the sessio. Bed mobility Supine to Sit: Moderate assistance Sit to Supine: Maximum assistance Scooting: Moderate assistance Comment: Pt required increased time and repeated cues to initiate and sequence bed mobiltiy. Pt confused with instructions to move her right arm to assist with rising from the bed to sit EOB. Pt moved all the bedding from the right side to the left side of the bed instead of positioning her RUE to push off the bed. Pt required assist to move BLE off the bed R>L. Pt requires mod assist to scootto EOB and to scoot hips towards the HOB onces seated EOB. Pt required max assist to raise BLE ontothe bed to return to supine. Transfers Sit to stand: Maximum assistance;Dependent/Total Transfer Comments: Pt educated on hand placement with sit to stand from raised bed to FWW. Pt attempted to stand multiple times without success. Pt did not appear to be wt shifting over her feet and using her legs at all to stand. Pt cued and was able to wt shift forward to get her nose over her toes but did not engage her leg muscles to stand Cognition Overall Cognitive Status: Exceptions Arousal/Alertness: Delayed responses to stimuli Following Commands: Follows one step commands with repetition;Follows one step commands with increased time;Inconsistently follows commands Attention Span: Difficulty attending to directions Memory: Decreased recall of recent events;Decreased short term memory Safety Judgement: Decreased awareness of need for assistance Problem Solving: Decreased awareness of errors;Assistance required to correct errors made;Assistance required to identify errors made;Assistance required to generate solutions;Assistance required to implement solutions Insights: Decreased awareness of deficits Initiation: Requires cues for some Sequencing: Requires cues for some Cognition Comment: Pt slow to respond to cues for transfers and bed mobiltiy. Pt confused with instructions for BUE use to support bed mobiltiy and transfers. Plan Plan Times per week: 5 visits Current Treatment Recommendations: Strengthening, Balance Training, Functional Mobility Training, ROM, Endurance Training, Safety Education & Training, Self- Care / ADL, Positioning, Pain Management, Cognitive/Perceptual Training, Equipment Evaluation, Education, & procurement, Patient/Caregiver Education & Training Plan Comment: POC and goals were made in collaboration with the pt. Goals Short term goals Time Frame for Short term goals: 6 visits Short term goal 1: Pt will complete functional transfers and mobility with mod I. not met Short term goal 2: Pt will complete toileting including toilet transfer with mod I. not attempted Short term goal 3: Pt will complete full body ADLs with mod I. not attempted Short term goal 4: Pt will complete functional standing >3 minutes with mod I in order to increase occupational participation. not met Short term goal 5: Pt will complete BUE strengthening exercises in order to increase strength required for functional transfers. not attempted Patient Goals Patient goals : to go home Therapy Time Individual Concurrent Group Co-treatment Time In 1025 Time Out 1050 Minutes 25 Timed Code Treatment Minutes: 25 Minutes(2x FA) Larissa Johnson, ELECTRONIC EQUIPMENT REPAIRER/L * Kiley Goff PA-C - 01/31/2020 9:57 AM EDT While evaluating the pt, she started telling me about some hallucinations she appeared to have thismorning. She states some killer white moths came in and killed all three of her cats. Tried re-orienting the patient, because at this present time she does know she is in [facility], but she is still very much convinced her cats were killed by moths. * Deja Koehler MD - 01/31/2020 8:48 AM EDT H: Recent Labs 01/31/20 0549 HGB 11.8 WBC 5.6 VS: Blood pressure (!) 165/96, pulse 63, temperature 99.8 F (37.7 C), temperature source Temporal, resp. rate 18, height 5' 11 (1.803 m), weight 240 lb 12.8 oz (109.2 kg), SpO2 91 %, not currently . Sleeping. Events of yesterday reviewed in chart. PE: Knee benign appearing. Xray: n/a IMP: R TKA pain, post revision TKA and fall PLAN: Recent UTI, however, now off atb. WBC normal. Will get ESR and CRP for baseline purposes for knee. Once MS improves, can proceed w/ further imaging if clinically warranted. * Lisa Townsend, JULIA, LD - 01/30/2020 2:42 PM EDT Comprehensive Nutrition Assessment Type and Reason for Visit: Initial, Consult(DT ref for FTT) Nutrition Recommendations/Plan: 1. Continue with General diet as tolerated. 2. Initiate Ensure high protein once daily per MNT protocol. Ensure High Protein provides 160 kcals, 16 g protein per serving. 3. Please document pt's PO intakes via flowsheet to accurately assess PO intake adequacy. 4. Monitor intakes, wts, and labs. RD will follow. Nutrition Assessment: Pt admit with general weakness.History recent Right TKA revision for infection. No evidence of infection at this time. Pt was seen by RD this afternoon, complaining about knee pain and Headache, stating that she wants to go home. Pt only answered a few questions, then gets distracted easily and goes back to saying she wants to leave Malnutrition Assessment: Malnutrition Status: Insufficient data Context: Acute Illness Findings of the 6 clinical characteristics of malnutrition: Energy Intake: (75% of less of estimated energy requirements, unknown exact time frame) Weight Loss: (Wts fluctuate) Body Fat Loss: No significant body fat loss Muscle Mass Loss: No significant muscle mass loss Fluid Accumulation: 1 - Mild Extremities Director Medical Science Strength: Not Performed Estimated Daily Nutrient Needs: Energy (kcal): 0052-0320 kcals; Weight Used for Energy Requirements: [place] Protein (g): 70-84 g(1-1.2); Weight Used for Protein Requirements: [place] Fluid (ml/day): 6175-7023 ml/day or per MD; Weight Used for Fluid Requirements: [place] Nutrition Related Findings: +1 BLE edema, Cl 108, Cr 0.45, Ammonia <9, K+ 3.7, Lipase 2875, TG 71, albumin 3.0 Wounds: (right hip/buttock abrasions, birgit area redness, stage 1 right proximal buttock) Current Nutrition Therapies: DIET GENERAL; Dietary Nutrition Supplements: Low Calorie High Protein Supplement Anthropometric Measures: Height: 5' 11 (180.3 cm) Current Body Weight: 255 lb (115.7 kg) Admission Body Weight: 244 lb (110.7 kg) Usual Body Weight: 270 lb (122.5 kg)(10/03/19) [place] Body Weight: 155 lbs; % [place] Body Weight 164.5 % BMI: 35.6 Adjusted Body Weight: ; No Adjustment BMI Categories: Obese Class 2 (BMI 35.0 -39.9) Nutrition Diagnosis: Inadequate oral intake related to acute injury/trauma(decreased appetite) as evidenced by intake 0-25% Nutrition Interventions: Food and/or Nutrient Delivery: Continue Current Diet, Start Oral Nutrition Supplement Nutrition Education/Counseling: No recommendation at this time Coordination of Nutrition Care: Continued Inpatient Monitoring Goals: Pt will receive >75% of meals/supplements Nutrition Monitoring and Evaluation: Behavioral-Environmental Outcomes: Beliefs and Attitutes Food/Nutrient Intake Outcomes: Food and Nutrient Intake, Supplement Intake Physical Signs/Symptoms Outcomes: Biochemical Data, GI Status, Nausea or Vomiting, Fluid Status or Edema, Meal Time Behavior, Nutrition Focused Physical Findings, Skin, Weight Discharge Planning: Too soon to determine Contact: [id number] * Kiley Goff PA-C - 01/30/2020 11:25 AM EDT Hospitalist Progress Note 01/30/2020 11:25 AM Subjective: Admit Date: 01/27/2020 PCP: Moreno Oates Room#: [id number] Interval History: No overnight issues. Upon entering the room the pt is holding one of her IV pumpsin her hand, when asked what happened she stated I was trying to lift up the phone, I don't know what happened. Hernando RN assisted in placing IV pump back together. She then states Well I better get something for pain or I'm walking out of here. Asked again about what happened when she was found on the floor and today she states she chose to lay on the floor. She denies again taking her medication more than prescribed or taking her friend's medication. Per Hernando, the son today stated that she does in fact take her friends medication and has been known to overdose on her own. DIET GENERAL; Patient Vitals for the past 96 hrs (Last 3 readings): Weight 01/30/20 0449 255 lb 8 oz (115.9 kg) 01/29/20 0615 251 lb 8 oz (114.1 kg) 01/28/20 0656 244 lb 4.8 oz (110.8 kg) 24HR INTAKE/OUTPUT: Intake/Output Summary (Last 24 hours) at 01/30/2020 1125 Last data filed at 01/30/2020 0935 Gross per 24 hour Intake 200 ml Output 2 ml Net 198 ml Medications: 0.9% NaCl with KCl 40 mEq 100 mL/hr at 01/29/208 cefTRIAXone (ROCEPHIN) IV 1 g Intravenous Q24H pantoprazole 40 mg Oral Daily apixaban 5 mg Oral BID sodium chloride flush 10 mL Intravenous 2 times per day divalproex 250 mg Oral 3 times per day LABS: CBC: Recent Labs 01/27/20185101/28/20 0535 01/30/20 0519 WBC 10.5 9.1 7.5 RBC 4.38 4.20 3.62* HGB 12.2 11.8 10.1* HCT 38.0 37.0 32.0* MCV 86.7 88.1 88.6 RDW 16.2* 16.2* 16.4* PLT 318 280 257 BMP: Recent Labs 01/27/20185101/28/20 0535 01/30/20 0519 NA 140 138 140 K 2.6* 3.2* 3.9 CL 98 102 108* CO2 35* 30 25 BUN 26* 20 13 CREATININE 0.61 0.46* 0.40* GLUCOSE 100 91 95 CALCIUM 8.5 8.0* 8.0* ANIONGAP 6 6 8 LIVER PROFILE: Recent Labs 01/27/20185101/28/20 0535 AST 26 26 ALT 14 13 BILITOT 0.4 0.3 ALKPHOS 102 98 LABALBU 3.5 3.4* PROT 7.3 7.1 PT/INR: No results for input(s): PROTIME, INR in the last 72 hours. CARDIAC ENZYMES: Recent Labs 01/27/201851 TROPONINI <0.012 Procalcitonin: Lab Results Component Value Date PROCAL <0.10 10/20/2019 Objective: Vitals: BP (!) 159/93 Pulse 77 Temp 97.8 F (36.6 C) (Temporal) Resp 18 Ht 5' 11 (1.803 m) Wt 255 lb 8 oz (115.9 kg) SpO2 95% BMI 35.64 kg/m Pulse Ox: SpO2 Av.7 % Min: 92 % Max: 95 % Supplemental O2: O2 Flow Rate (L/min): 2 L/min General appearance: No apparent distress, appears stated age and cooperative with exam.More alert today, flat affect, agitated. HEENT: Normal cephalic, atraumatic without obvious deformity. Extra ocular muscles intact. Neck: Supple, with full range of motion. No jugular venous distention. Trachea midline. Respiratory: Normal respiratory effort. Clear to auscultation, bilaterally without Rales/Wheezes/Rhonchi. Cardiovascular: Regular rate and rhythm with normal S1/S2 without murmurs, rubs or gallops. Abdomen: Soft, obese abdomen, non-tender, non-distended with normal bowel sounds. No rebound or guarding. Musculoskeletal: No clubbing, cyanosis or edema bilaterally. Full range of motion without deformity. Skin: Skin color, texture, turgor normal. No rashes or lesions. Neurologic: Somnolent. Neurovascularly intact without any focal sensory/motor deficits. Cranial nerves: II-XII intact, grossly non-focal. Assessment/Plan 1. Failure to thrive and debility: PT/OT ordered and recommending SNF, CM consulted for assistance in DC planning. Pt refusing at this time, CM to follow up on guardianship per her daughter. IVF running, pt improved today. Reason pt was found on floor unknown, pt positive for benzos, which is consistent with her OARRS report. Apparently pt's family stated to RN upon admission that pt has been known to take too much medication, could be contributing to current condition. Addiction med consulted. 2. Hypokalemia: improved, 3.9 this am. 3. HTN: BP improved, will add home meds. 4. Recent hx of septic arthritis of R knee/R knee pain: imaging ordered yesterday of bilateral knees due to complaints of pain and possible fall. Showed R joint edema and possible effusion. Ortho wasconsulted and recommended watching and stating the knee looked fine. 5. GERD 6. DVT: in past, on eliquis 7. UTI: pt has completed course of abx, will DC today per abx stewardship. -am labs, replace lytes prn -increase activity -DVT prophylaxis: [] Lovenox [] Heparin [] SCDs [x] Encourage ambulation [x] Already on Anticoagulation Advance Directive: Full Code Discharge planning: TBD Signed: Kiley Goff PA-C Inpatient Medical Services 01/30/2020, 11:25 AM * Kiley Goff PA-C - 01/29/2020 11:38 AM EDT Hospitalist Progress Note 01/29/2020 11:38 AM Subjective: Admit Date: 01/27/2020 PCP: Moreno Oates Room#: 260/2601 Interval History: No overnight issues. The pt is more awake today, but is drowsy. She states she wants to go home. When asking her again about what happened, she first states she fell, but then laterstates she did not fall. She complains of knee pain from her knee replacement on her R knee, and isasking for pain meds. She denies taking more than is prescribed of her benzo, and denies any syncopal episode. She is still a poor historian. DIET GENERAL; Patient Vitals for the past 96 hrs (Last 3 readings): Weight 01/29/20 0615 251 lb 8 oz (114.1 kg) 01/28/20 0656 244 lb 4.8 oz (110.8 kg) 24HR INTAKE/OUTPUT: Intake/Output Summary (Last 24 hours) at 01/29/2020 1138 Last data filed at 01/28/2020 1759 Gross per 24 hour Intake 240 ml Output Net 240 ml Medications: 0.9% NaCl with KCl 40 mEq 100 mL/hr at 01/29/20 0302 cefTRIAXone (ROCEPHIN) IV 1 g Intravenous Q24H pantoprazole 40 mg Oral Daily apixaban 5 mg Oral BID sodium chloride flush 10 mL Intravenous 2 times per day divalproex 250 mg Oral 3 times per day LABS: CBC: Recent Labs 01/27/202 01/28/20 0535 WBC 10.5 9.1 RBC 4.38 4.20 HGB 12.2 11.8 HCT 38.0 37.0 MCV 86.7 88.1 RDW 16.2* 16.2* PLT 318 280 BMP: Recent Labs 01/27/20 1852 01/28/20 0535 NA 140 138 K 2.6* 3.2* CL 98 102 CO2 35* 30 BUN 26* 20 CREATININE 0.61 0.46* GLUCOSE 100 91 CALCIUM 8.5 8.0* ANIONGAP 6 6 LIVER PROFILE: Recent Labs 01/27/20185101/28/20 0535 AST 26 26 ALT 14 13 BILITOT 0.4 0.3 ALKPHOS 102 98 LABALBU 3.5 3.4* PROT 7.3 7.1 PT/INR: No results for input(s): PROTIME, INR in the last 72 hours. CARDIAC ENZYMES: Recent Labs 01/27/201851 TROPONINI <0.012 Procalcitonin: Lab Results Component Value Date PROCAL <0.10 10/20/2019 Objective: Vitals: BP (!) 142/91 Pulse 83 Temp 98.3 F (36.8 C) (Temporal) Resp 20 Wt 251 lb 8 oz (114.1 kg) SpO2 94% BMI 35.08 kg/m Pulse Ox: SpO2 Av.4 % Min: 92 % Max: 96 % Supplemental O2: O2 Flow Rate (L/min): 3 L/min General appearance: No apparent distress, appears stated age and cooperative with exam. Drowsy, butalert. HEENT: Normal cephalic, atraumatic without obvious deformity. Extra ocular muscles intact. Neck: Supple, with full range of motion. No jugular venous distention. Trachea midline. Respiratory: Normal respiratory effort. Clear to auscultation, bilaterally without Rales/Wheezes/Rhonchi. Cardiovascular: Regular rate and rhythm with normal S1/S2 without murmurs, rubs or gallops. Abdomen: Soft, obese abdomen, non-tender, non-distended with normal bowel sounds. No rebound or guarding. Musculoskeletal: R knee post-surgical scar noted. Nontender to palpation but pt winces with movement. No clubbing, cyanosis or edema bilaterally. Full range of motion without deformity. Skin: Skin color, texture, turgor normal. No rashes or lesions. Neurologic: Somnolent. Neurovascularly intact without any focal sensory/motor deficits. Cranial nerves: II-XII intact, grossly non-focal. Assessment/Plan 1. Failure to thrive and debility: PT/OT ordered and recommending SNF, CM consulted for assistance in DC planning. IVF running, pt improved today. Reason pt was found on floor unknown, pt positive for benzos, which is consistent with her OARRS report. Apparently pt's family stated to RN upon admission that pt has been known to take too much medication, could be contributing to current condition. 2. Hypokalemia: improved, 3.2 this am. 3. HTN: pt's BP on low side, hold home BP meds for now. BP improving. 4. Recent hx of septic arthritis of R knee 5. GERD 6. DVT: in past, on eliquis 7. UTI: urine culture add on rejected, UA extremely suspicious for UTI and will cont to treat. Difficult to obtain history from pt. -am labs, replace lytes prn -increase activity -DVT prophylaxis: [] Lovenox [] Heparin [] SCDs [x] Encourage ambulation [x] Already on Anticoagulation Advance Directive: Full Code Discharge planning: TBD Signed: Kiley Goff PA-C Inpatient Medical Services 01/29/2020, 11:38 AM * Fernandez Bahena, PT - 01/29/2020 11:34 AM EDT Physical Therapy Facility/Department: [facility] 2E TELEMETRY Initial Assessment NAME: Charlie Nguyen : 1955 Date of Service: 01/29/2020 Having reviewed the treatment plan and goals for this patient, I certify that the plan of care below is medically necessary and appropriate. Discharge Recommendations: Subacute/Halfway Facility PT Equipment Recommendations Equipment Needed: No Assessment Body structures, Functions, Activity limitations: Decreased functional mobility ;Decreased balance;Decreased strength;Decreased posture;Increased pain;Decreased endurance Assessment: Charlie presents with pain and decreased functional strength, posture, balance, endurance, mobility, transfers, and gait. Her condition is evolving and requires skilled PT to address functional deficits. Prognosis: Good Decision Making: Medium Complexity PT Education: Goals;PT Role;Plan of Care Barriers to Learning: None. REQUIRES PT FOLLOW UP: Yes Activity Tolerance Activity Tolerance: Patient limited by fatigue;Patient limited by pain;Patient limited by endurance Patient Diagnosis(es): The primary encounter diagnosis was Generalized weakness. Diagnoses of Hypokalemia, Chronic pain of right knee, Inability to ambulate due to knee, and Misuse of prescription only drugs (HCC) were also pertinent to this visit. has a past medical history of Anxiety, Brain tumor (HCC), Depression, GERD (gastroesophageal refluxdisease), Headache, Ischemic colitis (HCC), and MS (multiple sclerosis) (HCC). has a past surgical history that includes Hysterectomy; Tubal ligation; knee surgery (Right, 06/2016); and bronchoscopy (10/06/2019). Restrictions Restrictions/Precautions Restrictions/Precautions: General Precautions, Fall Risk Required Braces or Orthoses?: No Vision/Hearing Vision: Within Functional Limits Hearing: Within functional limits Subjective General Chart Reviewed: Yes Patient assessed for rehabilitation services?: Yes Family / Caregiver Present: No Follows Commands: Within Functional Limits Subjective Subjective: Agreeable to PT evaluation. Pain Screening Patient Currently in Pain: Yes Orientation Orientation Overall Orientation Status: Within Normal Limits Social/Functional History Social/Functional History Lives With: Son Type of Home: House Home Layout: Two level, Able to Live on Main level with bedroom/bathroom Home Access: (stair lift) Bathroom Shower/Tub: Tub/Shower unit Bathroom Toilet: Handicap height Bathroom Equipment: Grab bars around toilet Bathroom Accessibility: Walker accessible Home Equipment: Cane, Rolling walker Receives Help From: Family ADL Assistance: Independent Homemaking Assistance: Independent Homemaking Responsibilities: Yes Ambulation Assistance: Independent Transfer Assistance: Independent Cognition Cognition Cognition Comment: Pt answered questions and followed commands appropriately, however, pt with impaired safety judgement and insight into situation. Objective Observation/Palpation Posture: Fair Observation: tele, PIV and O2 intact; sx scar on R knee AROM RLE (degrees) RLE AROM: WFL AROM LLE (degrees) LLE AROM : WFL Strength RLE Comment: 3/5 Strength LLE Comment: 3/5 Tone RLE RLE Tone: Normotonic Tone LLE LLE Tone: Normotonic Motor Control Gross Motor?: WNL Coordination Rapid Alternating Movements: Normal Sensation Overall Sensation Status: WFL Bed mobility Supine to Sit: Contact guard assistance Sit to Supine: Minimal assistance Scooting: Contact guard assistance Comment: Pt required extended time and use of bed features to complete. Pt denied dizziness with changes in positioning. Transfers Stand to sit: Moderate Assistance Bed to Chair: Moderate assistance Comment: Min assistance x 2 for side step. Stood at bedside for 60 seconds. Ambulation Ambulation?: Yes More Ambulation?: No Ambulation 1 Surface: level tile Device: Rolling Walker Assistance: 2 Person assistance;Minimal assistance Gait Deviations: Slow Nadeen;Decreased step length Distance: 3 very small side steps. Stairs/Curb Stairs?: No Balance Posture: Fair Sitting - Static: Fair;+ Sitting - Dynamic: Fair;+ Standing - Static: Fair Standing - Dynamic: Fair Plan Plan Times per week: 5 Times per day: Daily Plan weeks: 1 Current Treatment Recommendations: Strengthening, Transfer Training, Endurance Training, Patient/Caregiver Education & Training, Safety Education & Training, Home Exercise Program, FunctionalMobility Training, Balance Training, Gait Training Safety Devices Type of devices: All fall risk precautions in place, Call light within reach, Left in bed, Patient at risk for falls, Gait belt, Nurse notified Restraints Initially in place: No Goals and/or treatment plan was established in collaboration with Charlie. Plan of Care supervision transferred to Rehab Service Department Physical Therapist. AM-PAC Score AM-PAC Inpatient Mobility Raw Score : 15 (01/29/20 1130) AM-PAC Inpatient T-Scale Score : 39.45 (01/29/20 1130) Mobility Inpatient CMS 0-100% Score: 57.7 (01/29/20 1130) Mobility Inpatient CMS G-Code Modifier : CK (01/29/20 113) Goals Short term goals Time Frame for Short term goals: 1 week. Short term goal 1: Charlie will perform all mobility with standby assistance. Short term goal 2: Charlie will perform all transfers with minimum assistance. Short term goal 3: Charlie will ambulate 20 feet using a FWW with minimum assistance. Patient Goals Patient goals : GO HOME!! Therapy Time Individual Concurrent Group Co-treatment Time In 0900 Time Out 0920 Minutes 20 Fernandez Bahena PT * Arlin Baltazar OT - 01/29/2020 11:20 AM EDT Occupational Therapy Occupational Therapy Initial Assessment Date: 01/29/2020 Patient Name: Charlie Nguyen : 1955 Date of Service: 01/29/2020 Discharge Recommendations: Subacute/Halfway Facility Assessment Performance deficits / Impairments: Decreased functional mobility ;Decreased ADL status;Decreased strength;Decreased ROM;Decreased safe awareness;Decreased cognition;Decreased endurance;Decreased balance;Decreased high-level IADLs Assessment: Pt was previously independent in ADLs, functional transfers and mobility; pt now requires SBA-mod A for ADLs, mod A for sit<>stands and min A for ~2 lateral steps. Pt is limited by impaired balance, endurance, strength and cognition. Pt should benefit from skilled OT services in order to increase safety and independence in occupational participation. Prognosis: Fair Decision Making: Medium Complexity History: Pt admitted with failure to thrive, fall and hypoxia. PMH is listed above and is significant for a brain tumor and MS. Exam: AM-PAC Assistance / Modification: min-mod A OT Education: OT Role;Plan of Care Barriers to Learning: cognition REQUIRES OT FOLLOW UP: Yes Activity Tolerance Activity Tolerance: Patient limited by fatigue;Patient limited by pain Safety Devices Safety Devices in place: Yes Type of devices: All fall risk precautions in place;Call light within reach;Gait belt;Patient at risk for falls;Left in bed;Nurse notified;Bed alarm in place Patient Diagnosis(es): The primary encounter diagnosis was Generalized weakness. Diagnoses of Hypokalemia, Chronic pain of right knee, Inability to ambulate due to knee, and Misuse of prescription only drugs (HCC) were also pertinent to this visit. has a past medical history of Anxiety, Brain tumor (HCC), Depression, GERD (gastroesophageal refluxdisease), Headache, Ischemic colitis (HCC), and MS (multiple sclerosis) (HCC). has a past surgical history that includes Hysterectomy; Tubal ligation; knee surgery (Right, 06/2016); and bronchoscopy (10/06/2019). Restrictions Restrictions/Precautions Restrictions/Precautions: General Precautions, Fall Risk(bed alarm, O2, MS) Required Braces or Orthoses?: No Subjective General Chart Reviewed: Yes Patient assessed for rehabilitation services?: Yes Family / Caregiver Present: No Subjective Subjective: Pt cooperative with encouragement. Perseverating on returning home. General Comment Comments: Per RN, ok for pt to participate in OT eval. Patient Currently in Pain: Yes Pain Assessment Pain Assessment: 0-10 Pain Level: 8 Pain Type: Chronic pain Pain Location: Knee Pain Orientation: Right Pain Descriptors: Aching Non-Pharmaceutical Pain Intervention(s): Ambulation/Increased Activity;Repositioned(RN notified) Response to Pain Intervention: Patient Satisfied Vital Signs Patient Currently in Pain: Yes Social/Functional History Social/Functional History Lives With: Son Type of Home: House Home Layout: Two level, Able to Live on Main level with bedroom/bathroom Home Access: (stair lift) Bathroom Shower/Tub: Tub/Shower unit Bathroom Toilet: Handicap height Bathroom Equipment: Grab bars around toilet Bathroom Accessibility: Walker accessible Home Equipment: Cane, Rolling walker Receives Help From: Family ADL Assistance: Independent Homemaking Assistance: Independent Homemaking Responsibilities: Yes Ambulation Assistance: Independent(occasionally uses cane/fww) Transfer Assistance: Independent Objective Vision: Within Functional Limits Hearing: Within functional limits Observation/Palpation Posture: Fair Observation: tele, PIV and O2 intact; sx scar on R knee Balance Sitting Balance: Supervision(static sitting at EOB) Standing Balance: Minimal assistance(static/dynamic standing at fww) Functional Mobility Functional - Mobility Device: Rolling Walker Activity: Other(~2 lateral steps) Assist Level: Minimal assistance Functional Mobility Comments: Pt required min A for assist with balance as well as fww management. Pt only able to tolerate ~2 lateral steps for requesting to return to sitting. Pt limited by impaired endurance and increased pain. ADL Feeding: Independent Grooming: Stand by assistance UE Bathing: Stand by assistance LE Bathing: Moderate assistance UE Dressing: Stand by assistance LE Dressing: Moderate assistance Toileting: Moderate assistance Bed mobility Supine to Sit: Contact guard assistance(HOB elevated and use of bed rails) Sit to Supine: Minimal assistance(assist to manage BLE into bed) Scooting: Contact guard assistance(to EOB) Comment: Pt required extended time and use of bed features to complete. Pt denied dizziness with changes in positioning. Transfers Sit to stand: Moderate assistance Stand to sit: Moderate assistance(assist for controlled descent) Transfer Comments: at fww- pt educated on proper BUE placement in order to complete safe transfer as pt attempted to hold onto fww during transfer. Cognition Cognition Comment: Pt answered questions and followed commands appropriately, however, pt with impaired safety judgement and insight into situation. Sensation Overall Sensation Status: WFL(no c/o numbness/tingling) LUE AROM (degrees) LUE General AROM: Shld ~90, distal WFL RUE AROM (degrees) RUE General AROM: Shld ~90, distal WFL LUE Strength LUE Strength Comment: >3/5 RUE Strength RUE Strength Comment: >3/5 Plan Plan Times per week: 6 visits Current Treatment Recommendations: Strengthening, Balance Training, Functional Mobility Training, ROM, Endurance Training, Safety Education & Training, Self- Care / ADL, Positioning, Pain Management, Cognitive/Perceptual Training, Equipment Evaluation, Education, & procurement, Patient/Caregiver Education & Training Plan Comment: POC and goals were made in collaboration with the pt. AM-PAC Score AM-PAC Inpatient Daily Activity Raw Score: 16 (01/29/20 1110) AM-PAC Inpatient ADL T-Scale Score : 35.96 (01/29/20 1110) ADL Inpatient CMS 0-100% Score: 53.32 (01/29/20 1110) ADL Inpatient CMS G-Code Modifier : CK (01/29/201109) Goals Short term goals Time Frame for Short term goals: 6 visits Short term goal 1: Pt will complete functional transfers and mobility with mod I. Short term goal 2: Pt will complete toileting including toilet transfer with mod I. Short term goal 3: Pt will complete full body ADLs with mod I. Short term goal 4: Pt will complete functional standing >3 minutes with mod I in order to increase occupational participation. Short term goal 5: Pt will complete BUE strengthening exercises in order to increase strength required for functional transfers. Patient Goals Patient goals : to go home Therapy Time Individual Concurrent Group Co-treatment Time In 928(co-eval with PT) Time Out 0945 Minutes 16 Arlin Baltazar, OT * Fermin Davenport DTR - 01/29/2020 7:24 AM EDT Nutrition rescreen completed. Pt referred to RD. * Deja Lay PT - 01/28/2020 3:10 PM EDT Physical Therapy Facility/Department: [facility] TELEMETRY Daily Treatment Note NAME: Charlie Nguyen : 1955 Date of Service: 01/28/2020 Attempted unable to arouse for PT Deja Lay PT * Kiley Goff PA-C - 01/28/2020 10:19 AM EDT Hospitalist Progress Note 01/28/2020 10:19 AM Subjective: Admit Date: 01/27/2020 PCP: Moreno Oates Room#: [id number] Interval History: No overnight issues. The pt is difficult to rouse and does not respond to questioning. She opens her eyes to her name but quickly falls back asleep. DIET GENERAL; Patient Vitals for the past 96 hrs (Last 3 readings): Weight 01/28/20 0656 244 lb 4.8 oz (110.8 kg) 24HR INTAKE/OUTPUT: Intake/Output Summary (Last 24 hours) at 01/28/2020 1019 Last data filed at 01/28/2020 0803 Gross per 24 hour Intake 1060 ml Output 10 ml Net 1050 ml Medications: 0.9% NaCl with KCl 40 mEq 100 mL/hr at 01/28/20 0524 cefTRIAXone (ROCEPHIN) IV 1 g Intravenous Q24H pantoprazole 40 mg Oral Daily apixaban 5 mg Oral BID sodium chloride flush 10 mL Intravenous 2 times per day divalproex 250 mg Oral 3 times per day LABS: CBC: Recent Labs 01/27/20185101/28/20 0535 WBC 10.5 9.1 RBC 4.38 4.20 HGB 12.2 11.8 HCT 38.0 37.0 MCV 86.7 88.1 RDW 16.2* 16.2* PLT 318 280 BMP: Recent Labs 01/27/20185101/28/20 0535 NA 140 138 K 2.6* 3.2* CL 98 102 CO2 35* 30 BUN 26* 20 CREATININE 0.61 0.46* GLUCOSE 100 91 CALCIUM 8.5 8.0* ANIONGAP 6 6 LIVER PROFILE: Recent Labs 01/27/20185101/28/20 0535 AST 26 26 ALT 14 13 BILITOT 0.4 0.3 ALKPHOS 102 98 LABALBU 3.5 3.4* PROT 7.3 7.1 PT/INR: No results for input(s): PROTIME, INR in the last 72 hours. CARDIAC ENZYMES: Recent Labs 01/27/201851 TROPONINI <0.012 Procalcitonin: Lab Results Component Value Date PROCAL <0.10 10/20/2019 Objective: Vitals: BP 101/63 Pulse 60 Temp 96.7 F (35.9 C) (Temporal) Resp 19 Wt 244 lb 4.8 oz (110.8 kg) SpO2 94% BMI 34.07 kg/m Pulse Ox: SpO2 Av.2 % Min: 92 % Max: 97 % Supplemental O2: General appearance: No apparent distress, appears stated age and cooperative with exam. Pt extremely somnolent. Does not wake up during physical exam. HEENT: Normal cephalic, atraumatic without obvious deformity. Extra ocular muscles intact. . Neck: Supple, with full range of motion. No jugular venous distention. Trachea midline. Respiratory: Normal respiratory effort. Clear to auscultation, bilaterally without Rales/Wheezes/Rhonchi. Cardiovascular: Regular rate and rhythm with normal S1/S2 without murmurs, rubs or gallops. Abdomen: Soft, non-tender, non-distended with normal bowel sounds. No rebound or guarding. Musculoskeletal: No clubbing, cyanosis or edema bilaterally. Full range of motion without deformity. Skin: Skin color, texture, turgor normal. No rashes or lesions. Neurologic: Somnolent. Neurovascularly intact without any focal sensory/motor deficits. Cranial nerves: II-XII intact, grossly non-focal. Assessment/Plan 1. Failure to thrive and debility: PT/OT ordered, CM consulted for assistance in DC planning. IVF running. Reason pt was found on floor unknown, pt positive for benzos, which is consistent with her OARRS report. Apparently pt's family stated to RN overnight that pt has been known to take too much medication, could be contributing to current condition. 2. Hypokalemia: improved, 3.2 this am. 3. HTN: pt's BP on low side, hold home BP meds for now 4. Recent hx of septic arthritis of R knee 5. GERD 6. DVT: in past, on eliquis 7. UTI: urine culture pending, UA extremely suspicious for UTI. Difficult to obtain history from pt. -am labs, replace lytes prn -increase activity -DVT prophylaxis: [] Lovenox [] Heparin [] SCDs [x] Encourage ambulation [x] Already on Anticoagulation Advance Directive: Full Code Discharge planning: TBD Signed: Kiley Goff PA-C Inpatient Medical Services 01/28/2020, 10:19 AM documented in this encounter* Joselin Diaz, RN - 10/25/2019 2:49 PM EDT Called report to [facility] at [facility]. * Carlos Degroot, PT - 10/25/2019 1:30 PM EDT Physical Therapy Order for re-eval was received and pt's chart reviewed. Per medical record, pt is awaiting discharge to LTAC. Therapy will re-evaluate as necessary if plan changes. Carlos Degroot, DPT, PT * Sandie Taylor, OT - 10/25/2019 1:28 PM EDT Occupational Therapy Date: 10/25/2019 Patient Name: Charlie Nguyen : 1955 Date of Service: 10/25/2019 Order for re-eval was received and pt's chart reviewed. Per medical record, pt is awaiting discharge to LTAC. Therapy will re-evaluate as necessary if plan changes. Sandie Taylor OT * Kristne Burton, JIM - 10/25/2019 11:45 AM EDT Speech Language Pathology Facility/Department: [facility] TELEMET[facility] Speech Language/Dysphagia Daily Therapy Note NAME: Charlie Nguyen : 1955 Patient Diagnosis(es): Patient Active Problem List Diagnosis Migraine Internal derangement of right knee Glioma (HCC) Hypertension Chronic nonintractable headache Intentional drug overdose (HCC) Drug overdose, multiple drugs, accidental or unintentional, initial encounter Acute respiratory failure with hypoxia (HCC) Unspecified mood (affective) disorder (HCC) Metabolic encephalopathy Palliative care encounter Allergies: Allergies Allergen Reactions Macrobid [Nitrofurantoin Monohyd Macro] Hives Hydrocodone-Acetaminophen Other reaction(s): GI Upset Didn't do anything for her pain Keflex [Cephalexin] Anxiety 3L nasal cannula Oral Motor / Motor Speech/Swallowing: Pt was willing to participate in few ROM/strengthening exercises for should shrugs, chin push down. Pt without posture with head turn hard to the right. Cognitive Linguistic: Increased attention to task. She was attending and answering questions appropriately. Reduced reasoning with home going. Asking to go home and that she will be fine with assist from her PT. D/W pt prolonged hospitalization and need for strengthening to maximize function at home. Pt did recall lack of physical exercises and wheelchair level prior to function. Patient/Family/Caregiver Education: Encourage ex. Impressions: Decreased reasoning, if stable and pt continues with consistent alertness than suggestadvanced diet trials. Plan: Continued daily Speech/Language treatment with goals per plan of care. Kristen Burton M.A., CCC-MAIL PROCESSING CLERK Speech-Language Pathologist Time in 1135 Time out 1145 * Clinton Deleon MD - 10/25/2019 11:10 AM EDT [facility], Pulmonary Critical Care and Sleep Medicine [address] [place] [address] Patient - Charlie Nguyen, Age - 64 y.o. - 1955 Room Number - [id number] Consulting - Max Bob DO Primary Care Physician - Moreno Oates Date of Admission - 10/03/2019 7:34 AM Hospital Day - I have evaluated the patient and reviewed the case with the FURNITURE FINISHER. I agree with the current plan of care including the workup, evaluation, management, and diagnosis. Care plan has been discussed. I independently examined and evaluated the patient. The documentation below has been reviewed and edited as needed to reflect the findings of my evaluation. Patient doing better Cxray 10/23 reviewed almost complete resolution of infiltrate May need home oxygen, need home O2 evaluation Subjective/Events Past 24 hours/ROS Patient awake and alert lying in bed. Denies any new respiratory concerns. States she was comfortable over night. On 3 liters NC. Does not wear home O2. Wants to know when she can go home. All other systems reviewed Objective Vitals height is 5' 9 (1.753 m) and weight is 270 lb (122.5 kg). Her temporal temperature is 98 F (36.7 C). Her blood pressure is 116/78 and her pulse is 95. Her respiration is 18 and oxygen saturation is 93%. O2 Flow Rate (L/min): 3 L/min I/O Intake/Output Summary (Last 24 hours) at 10/25/2019 1110 Last data filed at 10/25/2019 0808 Gross per 24 hour Intake 320 ml Output 1600 ml Net -1280 ml No data found. Exam General Appearance Awake, alert, oriented, in no acute distress. On 3 liters NC. HEENT - normocephalic, atraumatic, sclarea is anicteric, conjunctiva is pink, nasal mucosa is normal, no congestion, external ears are intact. Neck - Supple, trachea midline Lymph nodes- no cervical, clavicular, or posterior auricular lymphadenopathy Lungs Normal effort, no wheezing or crackles noted. Diminished breath sounds in the bases. Cardiovascular - Heart sounds are normal. Regular rate and rhythm Abdomen - Soft, nontender, nondistended, no masses or organomegaly. Obese. Neurologic - Awake, alert, follows commands. Cranial nerves II-XII are intact, There are no focal motor deficits grossly Skin - No bruising or bleeding, good turgor, normal warmth Extremities - No clubbing, cyanosis, edema Peripheral pulses- present bilaterally and symmetric Psychiatric: appropriate, oriented to person, place and time/date Meds amoxicillin-clavulanate 1 tablet Oral 2 times per day furosemide 40 mg Intravenous BID valproate sodium (DEPACON) IVPB 250 mg Intravenous Q8H sodium chloride flush 10 mL Intravenous 2 times per day sodium chloride flush 10 mL Intravenous 2 times per day heparin flush 250 Units Intravenous 2 times per day potassium chloride 20 mEq Oral Once metoprolol 50 mg Oral BID cloNIDine 0.1 mg Oral Once pantoprazole 40 mg Oral QAM AC [Held by provider] QUEtiapine 25 mg Oral BID sodium chloride flush 10 mL Intravenous 2 times per day enoxaparin 40 mg Subcutaneous Daily QUEtiapine, melatonin, diphenhydrAMINE, potassium chloride OR potassium alternative oral replacement OR potassium chloride, sodium chloride flush, heparin flush, ipratropium-albuterol, racepinephrine HCl, sodium chloride nebulizer, iopamidol, sodium chloride flush, promethazine OR ondansetron, acetaminophen Labs CBC Recent Labs 10/25/19328 WBC 8.7 HGB 12.3 HCT 38.5 MCV 96.0 PLT 333 BMP: Recent Labs 10/25/19328 NA 139 K 3.7 CL 93* CO2 36* BUN 30* CREATININE 0.63 GLUCOSE 115* MG 1.8 PHOS 5.3* IONCA 4.30 ABG: Lab Results Component Value Date PH 7.47 10/25/2019 No results found for: IFIO2, MODE, SETTIDVOL, SETPEEP LIVER PROFILE Recent Labs 10/25/19328 AST 51* ALT 67* BILIDIR 0.0 BILITOT 0.6 ALKPHOS 107 INR No results found for: INR, PROTIME PTT No results found for: APTT Cultures Radiology CXR Reviewed (See actual reports for details) Active Hospital Problem List Active Hospital Problems Diagnosis Date Noted Metabolic encephalopathy [G93.41] 10/20/2019 Palliative care encounter [Z51.5] 10/20/2019 Unspecified mood (affective) disorder (HCC) [F39] Acute respiratory failure with hypoxia (HCC) [J96.01] Intentional drug overdose (HCC) [T50.902A] 10/03/2019 Drug overdose, multiple drugs, accidental or unintentional, initial encounter [T50.911A] 10/03/2019 Assessment and Plan Acute hypoxic respiratory failure s/p mechanical ventilation likely r/t aspiration - Extubated 10/11 - Continue supplemental O2 to maintain SpO2 92%. - Will need home O2 evaluation prior to d/c if plan is for d/c home. - BD therapy continued. - BiPAP prn Acute mental status changes/encephalopathy - Patient awake and alert this morning. Appears to be back to baseline. - monitor closely. MSSA/ Corynebacterium pneumonia/ RLL atelectasis/ ? Recurrent aspiration - s/p bronchoscopy on 10/06/19 - Augmentin course - Diet per ST recommendations - COVID-19 negative Acute encephalopathy secondary to drug overdose (amitriptyline and Lyrica) - CT head negative - supportive care - improving Transaminitis - monitor LFT's, improved - as per PCP ? Intentional drug overdose/ Hx anxiety and depression - As per Psychiatry. Hx Multiple sclerosis/ debility -PT/OT. Wheelchair at baseline GI prophylaxis- PPI DVT prophylaxis- Lovenox SQ Code status- Limited Code. Okay for NIV CM/SW on board for discharge planning. Patient no longer meets criteria for [facility] per SW. Awaitingtherapy evaluations for SNF vs Home. If d/c planning is for home then she will need home O2 evaluation. Case discussed with nurse and patient Questions and concerns addressed. * Gina Mendoza MD - 10/24/2019 2:32 PM EDT Hospitalist Progress Note 10/24/2019 2:32 PM Throughout the encounter I wore an N95 MASK, Gown, FACE SHIELD AND GLOVES [phone]: Please page me @ [phone] for patient care issues. [phone]: Please page [facility] night Hospitalist for any issues. Subjective: Admit Date: 10/03/2019 PCP: Moreno Oates Patient wants to go home, No overnight issues. Denies chest pain, cough, sob, abdominal pain, nausea, vomiting, diarrhea, constipation, fevers, or chills. Has mild ankle pain. DIET GENERAL; Dental Soft Dietary Nutrition Supplements: Low Calorie High Protein Supplement No data found. Medications: amoxicillin-clavulanate 1 tablet Oral 2 times per day furosemide 40 mg Intravenous BID valproate sodium (DEPACON) IVPB 250 mg Intravenous Q8H sodium chloride flush 10 mL Intravenous 2 times per day sodium chloride flush 10 mL Intravenous 2 times per day heparin flush 250 Units Intravenous 2 times per day potassium chloride 20 mEq Oral Once metoprolol 50 mg Oral BID cloNIDine 0.1 mg Oral Once pantoprazole 40 mg Oral QAM AC [Held by provider] QUEtiapine 25 mg Oral BID sodium chloride flush 10 mL Intravenous 2 times per day enoxaparin 40 mg Subcutaneous Daily LABS: CBC: Recent Labs 10/22/19 0555 10/23/19 0348 10/24/19 0417 WBC 9.2 9.8 8.8 RBC 3.44* 3.71* 3.79* HGB 10.9* 11.6* 11.9 HCT 33.4* 35.4 36.4 MCV 96.8 95.6 96.0 RDW 15.2* 15.1* 15.0* PLT 341 343 322 BMP: Recent Labs 10/22/19 0555 10/23/19 0348 10/24/19 0450 NA 142 144 139 K 3.2* 3.5 3.6 CL 104 97* 95* CO2 30 35* 36* BUN 15 25* 26* CREATININE 0.39* 0.53 0.48* GLUCOSE 96 104* 113* CALCIUM 8.2* 8.5 8.5 ANIONGAP 8 12 9 LIVER PROFILE: Recent Labs 10/22/19 0555 10/23/19 0348 10/24/19 0450 AST 56* 44 41 ALT 100* 84* 69* BILITOT 0.5 0.6 0.6 ALKPHOS 97 106 102 LABALBU 3.1* 3.4* 3.6 PROT 7.0 7.6 7.7 PT/INR: No results for input(s): PROTIME, INR in the last 72 hours. CARDIAC ENZYMES: No results for input(s): TROPONINI in the last 72 hours. Procalcitonin: Lab Results Component Value Date PROCAL <0.10 10/20/2019 Objective: Vitals: BP 122/74 Pulse 90 Temp 97.3 F (36.3 C) (Temporal) Resp 16 Ht 5' 9 (1.753 m) Wt 270 lb (122.5 kg) SpO2 91% BMI 39.87 kg/m Pulse Ox: SpO2 Av.6 % Min: 91 % Max: 94 % Supplemental O2: O2 Flow Rate (L/min): 3 L/min General appearance: No apparent distress, appears stated age and cooperative with exam HEENT: Normal cephalic, atraumatic without obvious deformity. Pupils equal, round, and reactive to light. Extra ocular muscles intact. Conjunctivae/corneas clear. Neck: Supple, with full range of motion. No jugular venous distention. Trachea midline. No lymphadenopathy. Respiratory: Normal respiratory effort. Clear to auscultation, bilaterally without Rales/Wheezes/Rhonchi. Cardiovascular: Regular rate and rhythm with normal S1/S2 without murmurs, rubs or gallops. Abdomen: Soft, non-tender, non-distended with normal bowel sounds. No rebound or guarding. Musculoskeletal: No clubbing, cyanosis or edema bilaterally. Full range of motion without deformity. Skin: Skin color, texture, turgor normal. No rashes or lesions. Neurologic: Neurovascularly intact without any focal sensory/motor deficits. Cranial nerves: II-XIIintact, grossly non-focal. Assessment # Acute toxic and metabolic encephalopathy - resolved # ? Intentional drug OD , no suicidal or homicidal thoughts # Aspiration PNA # Seizure disorder # Class 2 obesity Past Medical History: Diagnosis Date Anxiety Brain tumor (HCC) 02/01/2015 Found small tumor, has appt with neurologist in May Depression GERD (gastroesophageal reflux disease) Headache Ischemic colitis ([facility]) MS (multiple sclerosis) ([facility]) Plan : Pysch cleared for I/P stay, antibiotics switched to PO All test and lab results reviewed Consult notes reviewed Am labs, replace lytes prn PT/OT Advance care planning has been discussed, total time spent is greater than 30 mins, guardianship being applied through probate court -DVT prophylaxis: [x] Lovenox [] Heparin [] SCDs [x] Encourage ambulation [] Already on Anticoagulation Advance Directive: Limited Discharge planning: TBD GINA MENDOZA MD, MD Division of Hospitalist Medicine Inpatient Medical Services This report was created using the [employer] Naturally Speaking voice- activated system. Despiteprompt dictation and careful editorial review, there may be subtle contextual errors in this report, due to misrecognition of the spoken word. * Sepideh Lopez, [facility] - 10/23/2019 10:19 PM EDT Perfect Serve message sent to Dr. Saldaña and Dr. Naty Kim about NIV discontinuation on the floors and whether or not CPAP/BIPAP therapy is to continue at night for this patient. An order would be needed. I also spoke to the patient's nurse, Yanique Damico earlier, who was going to contact the doctor. * Joselin Dugan RN - 10/23/2019 3:35 PM EDT Patient's assessment remains unchanged. She is resting comfortably in bed. * Joselin Dugan RN - 10/23/2019 12:45 PM EDT Patient transferred to [facility] from [facility]. * Deepti Kim SLP - 10/23/2019 12:26 PM EDT Speech Language Pathology Facility/Department: [facility] Daily Treatment Note NAME: Charlie Nguyen : 1955 Patient was not available this date for ST as at time of visit she was in process of transfer out of ICU to 4th floor. Will re-attempt ST when available. JIM Aponte * Max Bob DO - 10/23/2019 10:36 AM EDT Patient transferred out of ICU onto hospitalist service. * Rajendra Kim MD - 10/23/2019 8:05 AM EDT Critical Care Progress Note 10/23/2019 8:05 AM Subjective: Admit Date: 10/03/2019 PCP: Moreno Oates Chief Complaint Patient presents with Loss of Consciousness Interval History: had worsening mental status and therefore she was transferred back to ICU yesterday. ? Seizure like activities. Was placed on NIV after transfer. CTA chest reviewed. Showed improvement in consolidation in RLL. 10/22/19: No issues since transferred. Mental status is decent. Answering all questions. Has been onPAP at night and NC during day. Does not have ISM. No fever or chills. 10/23/19: No issues over night. Has been stable, on PAP at night. Currently on 3 L. Mental status has been good. Did not have seizure. Started on Lasix yesterday with good response. 14 points review of systems has been obtained and negative except to was mentioned in HPI. Medications: Scheduled Meds: magnesium sulfate 6 g Intravenous Once furosemide 40 mg Intravenous BID ampicillin-sulbactam (UNASYN) 3 g ivpb minibag 3 g Intravenous 3 times per day valproate sodium (DEPACON) IVPB 250 mg Intravenous Q8H sodium chloride flush 10 mL Intravenous 2 times per day sodium chloride flush 10 mL Intravenous 2 times per day heparin flush 250 Units Intravenous 2 times per day potassium chloride 20 mEq Oral Once metoprolol 50 mg Oral BID cloNIDine 0.1 mg Oral Once pantoprazole 40 mg Oral QAM AC [Held by provider] QUEtiapine 25 mg Oral BID sodium chloride flush 10 mL Intravenous 2 times per day enoxaparin 40 mg Subcutaneous Daily Continuous Infusions: Objective: Vitals: Temp (24hrs), Av.7 F (36.5 C), Min:96.6 F (35.9 C), Max:98.6 F (37 C) BP 118/70 Pulse 86 Temp 97.6 F (36.4 C) (Axillary) Resp 26 Ht 5' 9 (1.753 m) Wt 270 lb (122.5 kg) SpO2 94% BMI 39.87 kg/m I/O:24HR INTAKE/OUTPUT: Intake/Output Summary (Last 24 hours) at 10/23/2019 0805 Last data filed at 10/23/2019 0701 Gross per 24 hour Intake 4199 ml Output 4095 ml Net 104 ml 10/21 0701 - 10/22 0700 In: 4199 [P.O.:1360; I.V.:2502] Out: 4035 [Urine:4035] CVP: Ventilator Settings: Vent Mode: Tube Compensation Rate Set: 14 bmp Vt Ordered: 500 mL Pressure Support: 0 cmH20 PEEP/CPAP: 8 FiO2 : 30 % Physical Exam: General appearance - alert, ill appearing, and in no distress Mental status - alert, oriented to person, place, and time Eyes - pupils equal and reactive, extraocular eye movements intact Nose - normal and patent, no erythema, discharge or polyps Neck - supple, no significant adenopathy Chest - diminished to auscultation B/L, no wheezes, rales or rhonchi, symmetric air entry Heart - normal rate, regular rhythm, normal S1, S2, no murmurs, rubs, clicks or gallops Abdomen - soft, nontender, nondistended, no masses or organomegaly Rectal - deferred, not clinically indicated Neurological - alert, oriented, normal speech, no focal findings or movement disorder noted, motor and sensory grossly normal bilaterally Musculoskeletal - no joint tenderness, deformity or swelling Extremities - peripheral pulses normal, no pedal edema, no clubbing or cyanosis Skin - normal coloration and turgor, no rashes BMP: Recent Labs 10/21/19 0417 10/22/19 0555 10/23/19 0348 NA 143 142 144 K 2.8* 3.2* 3.5 CL 107 104 97* CO2 25 30 35* BUN 17 15 25* CREATININE 0.36* 0.39* 0.53 GLUCOSE 98 96 104* . M,PHOS:3)@ Ionized Calcium: Lab Results Component Value Date IONCA 4.40 10/23/2019 IONCA 4.40 10/22/2019 CBC: Recent Labs 10/22/19 0555 10/23/19 0348 WBC 9.2 9.8 HGB 10.9* 11.6* PLT 341 343 ABG: Recent Labs 10/22/19 0555 10/23/19 0348 PH 7.36 7.42 Assessment and Plan: Impression: - Acute mental status changes/encephalopathy. This has resolved. Back to her baseline now - Acute hypoxic RF. Improving. This is multifactorial. There is a component of fluid overload, withrecently treated pneumonia. CT showed improvement in RLL consolidation - MSSA/corynobacterium pneumonia - bipolar disorder - intentional drug overdose Plan: - resume current care. Can change to tele status - wean off O2. PAP at night and nasal cannula during the day - resume Abx. Can switch to Augmentin. Finish total 7 days( including Unasyn) - started IV Lasix yesterday - strict I/O and daily kidney function - start ISM - watch for aspiration - PAP at night - can be transferred to tele floor Prophylaxis: Stress ulcer: [] PPI Agent [] H2RA [] Sucralfate [] Other: VTE: [] Enoxaparin [] SC Heparin [] SCD Limited * Rajendra Kim MD - 10/22/2019 9:30 AM EDT Critical Care Progress Note 10/22/2019 9:30 AM Subjective: Admit Date: 10/03/2019 PCP: Moreno Oates Chief Complaint Patient presents with Loss of Consciousness Interval History: had worsening mental status and therefore she was transferred back to ICU yesterday. ? Seizure like activities. Was placed on NIV after transfer. CTA chest reviewed. Showed improvement in consolidation in RLL. No issues since transferred. Mental status is decent. Answering all questions. Has been on PAP at night and NC during day. Does not have ISM. No fever or chills. 14 points review of systems has been obtained and negative except to was mentioned in HPI. Medications: Scheduled Meds: ampicillin-sulbactam (UNASYN) 3 g ivpb minibag 3 g Intravenous 3 times per day valproate sodium (DEPACON) IVPB 250 mg Intravenous Q8H sodium chloride flush 10 mL Intravenous 2 times per day sodium chloride flush 10 mL Intravenous 2 times per day heparin flush 250 Units Intravenous 2 times per day potassium chloride 20 mEq Oral Once metoprolol 50 mg Oral BID cloNIDine 0.1 mg Oral Once pantoprazole 40 mg Oral QAM AC [Held by provider] QUEtiapine 25 mg Oral BID sodium chloride flush 10 mL Intravenous 2 times per day enoxaparin 40 mg Subcutaneous Daily Continuous Infusions: Objective: Vitals: Temp (24hrs), Av.6 F (37 C), Min:98.6 F (37 C), Max:98.6 F (37 C) BP (!) 141/81 Pulse 75 Temp 98.6 F (37 C) (Oral) Resp 18 Ht 5' 9 (1.753 m) Wt 270 lb (122.5 kg) SpO2 96% BMI 39.87 kg/m I/O:24HR INTAKE/OUTPUT: Intake/Output Summary (Last 24 hours) at 10/22/2019 0930 Last data filed at 10/22/2019 0601 Gross per 24 hour Intake Output 425 ml Net -425 ml 10/20 0701 - 10/21 07 In: - Out: 485 [Urine:485] CVP: Ventilator Settings: Vent Mode: Tube Compensation Rate Set: 14 bmp Vt Ordered: 500 mL Pressure Support: 0 cmH20 PEEP/CPAP: 8 FiO2 : 50 % Physical Exam: General appearance - alert, ill appearing, and in no distress Mental status - alert, oriented to person, place, and time Eyes - pupils equal and reactive, extraocular eye movements intact Nose - normal and patent, no erythema, discharge or polyps Neck - supple, no significant adenopathy Chest - diminished to auscultation B/L, no wheezes, rales or rhonchi, symmetric air entry Heart - normal rate, regular rhythm, normal S1, S2, no murmurs, rubs, clicks or gallops Abdomen - soft, nontender, nondistended, no masses or organomegaly Rectal - deferred, not clinically indicated Neurological - alert, oriented, normal speech, no focal findings or movement disorder noted, motor and sensory grossly normal bilaterally Musculoskeletal - no joint tenderness, deformity or swelling Extremities - peripheral pulses normal, no pedal edema, no clubbing or cyanosis Skin - normal coloration and turgor, no rashes BMP: Recent Labs 10/20/19 1618 10/21/19 0417 10/22/19 0555 NA 143 143 142 K 3.0* 2.8* 3.2* CL 106 107 104 CO2 26 25 30 BUN 21* 17 15 CREATININE 0.45* 0.36* 0.39* GLUCOSE 134* 98 96 . M,PHOS:3)@ Ionized Calcium: Lab Results Component Value Date IONCA 4.40 10/22/2019 IONCA 3.50 10/05/2019 CBC: Recent Labs 10/21/19 0417 10/22/19 0555 WBC 10.6 9.2 HGB 11.1* 10.9* PLT 366 341 ABG: Recent Labs 10/22/19 0555 PH 7.36 Assessment and Plan: Impression: - Acute mental status changes/encephalopathy. This has resolved. Back to her baseline now - Acute hypoxic RF. Improving. This is multifactorial. There is a component of fluid overload, withrecently treated pneumonia - MSSA/corynobacterium pneumonia - bipolar disorder - intentional drug overdose Plan: - resume current care in the ICU - wean off O2. PAP at night and nasal cannula during the day - resume Abx. Likely can deescalte - start IV Lasix - strict I/O - start ISM - watch for aspiration - PAP at night Prophylaxis: Stress ulcer: [] PPI Agent [] H2RA [] Sucralfate [] Other: VTE: [] Enoxaparin [] SC Heparin [] SCD Limited Excluding procedures, the total critical care time caring for this patient with life threatening, unstable organ failure, including direct patient contact, review of medical record, management of life support systems, review of data including imaging and labs, discussions with other team members, patient's family and physicians at least 32 minutes so far today. * Polo Reza RCP - 10/22/2019 4:00 AM EDT ABG did not read over Results: pH: 7.401 CaO2: 48.1 PaO2: 86.4 HCO3: 29.9 Sat: 96.4 * Shirlene Singh RD, LD - 10/21/2019 9:10 AM EDT Nutrition Assessment Type and Reason for Visit: Reassess Nutrition Recommendations: Request PO intake data for meals and supplements; Please record po intakes in nursing flow sheet tohelp assess adeqeuacy of nutrition and need for ons modification Continue diet textures per speech therapy recommendations currently Dental Soft Continue Ensure High Protein bid at this time (160 kcals, 16 gm protein per serving RD to monitor nutrition status -labs, po intakes, weight; follow up Nutrition Assessment: multiple insurance consultant transferred to [facility] seizure-like activity, restlessness and confusion. pt awaiting breakfast/ speech therapy following Malnutrition Assessment: Malnutrition Status: At risk for malnutrition(as previously assessed per RD) Context: Acute illness or injury Nutrition Risk Level: High Nutrient Needs: Estimated Daily Total Kcal: 9081-2079 kcals(25-28) Estimated Daily Protein (g): 66-79(1-1.2) Estimated Daily Total Fluid (ml/day): 2000 ml/day or per MD Nutrition Diagnosis: Problem: Inadequate oral intake Etiology: related to Insufficient energy/nutrient consumption, Cognitive or neurological impairment ? Signs and symptoms: as evidenced by Diet history of poor intake, Intake 0-25% Objective Information: Nutrition-Focused Physical Findings: LE +2 pitting edema, Generalized non- pitting edema -LUE trace non-pitting, RUE +2 non-pitting edema Wound Type: Stage II(stage 2 perineum) Current Nutrition Therapies: Oral Diet Orders: Dental Soft Oral Diet intake: 0%(hx of varied po intakes -last recorded 10/15) Oral Nutrition Supplement (ONS) Orders: Low Calorie High Protein Supplement ONS intake: Unable to assess Anthropometric Measures: Ht: 5' 9 (175.3 cm) Current Body Wt: 270 lb (122.5 kg) Admission Body Wt: 260 lb (117.9 kg) % Weight Change: , Unable to confirm wt history with patient at this time. Previous RD notation was30# wt gain in 11 months (240# on 10/2018) [place] Body Wt: 145 lb (65.8 kg), % [place] Body 186 BMI Classification: BMI > or equal to 40.0 Obese Class III Nutrition Interventions: Continue current diet, Continue current ONS Continued Inpatient Monitoring, Speech Therapy Nutrition Evaluation: Evaluation: Progressing toward goals(diet advanced 10/12 oil heater operator following ) Goals: pt will receive/tolerate adequate nutrition with safe swallow; Intakes will be >75% of meals/supplements Monitoring: Meal Intake, Supplement Intake, Diet Tolerance, Skin Integrity, Wound Healing, I&O,Mental Status/Confusion, Weight, Pertinent Labs, Chewing/Swallowing, Monitor Hemodynamic Status, Monitor Bowel Function Contact Number: [phone] * Nathaly Javier PT - 10/21/2019 8:48 AM EDT Physical Therapy Facility/Department: [facility] Initial Assessment NAME: Charlie Nguyen : 1955 Date of Service: 10/21/2019 Chart review completed. Patient with multiple insurance consultant and transferred to [facility], therapy will require new orders to resume treatment once patient is medically appropriate. Nathaly Javier PT * Kristen Burton, MAIL PROCESSING CLERK - 10/21/2019 8:47 AM EDT Speech Language Pathology Facility/Department: [facility] Speech Language/Dysphagia Daily Therapy Note NAME: Charlie Nguyen : 1955 Patient Diagnosis(es): Patient Active Problem List Diagnosis Migraine Internal derangement of right knee Glioma (HCC) Hypertension Chronic nonintractable headache Intentional drug overdose (HCC) Drug overdose, multiple drugs, accidental or unintentional, initial encounter Acute respiratory failure with hypoxia (HCC) Unspecified mood (affective) disorder (HCC) Metabolic encephalopathy Palliative care encounter Allergies: Allergies Allergen Reactions Macrobid [Nitrofurantoin Monohyd Macro] Hives Hydrocodone-Acetaminophen Other reaction(s): GI Upset Didn't do anything for her pain Keflex [Cephalexin] Anxiety PAP therapy through the night. Currently on 6L nasal cannula Pleasant and talking. Pt did complain of frontal headache with some throbbing. Discussed history ofthese. She has MRI pending from neurology. Seizure activity suspected and will follow up. Started on Kepra and changed to depacon. Per sitter, pt slept from 7p-4a. Oral Motor / Motor Speech/Swallowing: Pt with increased affect. Less apparent left facial weakness this date. She followed instruction for full facial assessment. No asymmetry tongue. Should shrug weak; complete x10, head turn to left improve with some persistence to the right. Eye contact/pragmatically improved. No overt deficits with liquids/solids. Perception of getting hand/cup/spoon to mouthis much improved. Cognitive Linguistic: Pt with appropriate attention to task. She is responding to all questions appropriately. Few tangential tasks with minimal redirection to task at hand. Oriented to place, city, year. Unaware of how long in hospital and cues for September vs. October. Redirected the patient to her whiteboard for reminders; no c/o blurry vision this date. 2 minute delayed recall-2/3; minute later 3/3.Following directions and attentive to task at hand without redirection. Patient/Family/Caregiver Education: Re-orientation. Impressions: functional swallow with appropriate level of alertness. Continue dental soft diet withset. Most upright sitting position. Plan: Continued daily Speech/Language treatment with goals per plan of care. Kristen Burton M.A., [facility]-MAIL PROCESSING CLERK Speech-Language Pathologist Time in 817 Time out 847 * Sandie Taylor OT - 10/21/2019 7:53 AM EDT Occupational Therapy Facility/Department: [facility] Daily Treatment Note NAME: Charlie Nguyen : 1955 Date of Service: 10/21/2019 Discharge Recommendations: Subacute/Halfway Facility, Continue to assess pending progress, LTACH Pt with DIRECTOR MEDICAL SCIENCE and transferred to [facility]. Please re-order therapy when medically stable. Sandie Taylor OT * Doris Brink PTA - 10/21/2019 7:43 AM EDT Physical Therapy Facility/Department: [facility] Daily Treatment Note NAME: Charlie Nguyen : 1955 Date of Service: 10/21/2019 General Chart Reviewed: Yes Missed reason: (Pt DIRECTOR MEDICAL SCIENCE'd a second time and transferred to [facility]. PT to address need for new orders vs continuation of treatment.) Doris Brink PTA * Des Romero MD - 10/21/2019 6:31 AM EDT [facility], Pulmonary Critical Care and Sleep Medicine [address] [place] [address] Critical Care Note: Patient - Charlie Nguyen, Age - 64 y.o. - 1955 Room Number - [id number] Date of Admission - 10/03/2019 7:34 AM Hospital Day - 18 HPI/Subjective 10/21/2019 Patient transferred to the Intensive Care Unit from telemetry unit for change in mental status patient had 2 episodes were decreased mental status/hypoxia, as per patient's daughter before these episodes patient had an abnormal movements in her armsseizure-like activitypatient hard to arouse fromthese episodes On noninvasive ventilation with a full facemask, more awake this morning, follows simple commands, CTA of the chest done last evening was unremarkable for any pulmonary embolism, improved right lowerlobe infiltrate, new right middle lobe infiltrate Active Hospital Problem List Active Hospital Problems Diagnosis Date Noted Metabolic encephalopathy [G93.41] 10/20/2019 Palliative care encounter [Z51.5] 10/20/2019 Unspecified mood (affective) disorder (HCC) [F39] Acute respiratory failure with hypoxia (HCC) [J96.01] Intentional drug overdose (HCC) [T50.902A] 10/03/2019 Drug overdose, multiple drugs, accidental or unintentional, initial encounter [T50.915W] 10/03/2019 Events of Past 24 Hours As above All other systems reviewed Vitals height is 5' 9 (1.753 m) and weight is 270 lb (122.5 kg). Her axillary temperature is 98.7 F (37.1C). Her blood pressure is 117/84 and her pulse is 77. Her respiration is 21 and oxygen saturation is 93%. Range Data Temperature Range: Temp: 98.7 F (37.1 C)Temp Av.1 F (36.7 C) Min: 96.8 F (36 C) Max: 99 F (37.2 C) BP Range: Systolic (24hrs), Av , Min:112 , Max:168 Diastolic (24hrs), Av, Min:72, Max:109 Pulse Range: Pulse Av.6 Min: 73 Max: 110 Respiration Range: Resp Av Min: 15 Max: 28SpO2: 93 % 24hr Pulse Ox Range: SpO2 Av.4 % Min: 78 % Max: 100 % O2 Flow Rate (L/min): 4 L/min I/O Intake/Output Summary (Last 24 hours) at 10/21/2019 0631 Last data filed at 10/21/2019 0400 Gross per 24 hour Intake Output 465 ml Net -465 ml I/O last 3 completed shifts: In: - Out: 160 [Urine:160] Date 10/21/19 0000 - 10/21/192358 Shift [id number] 4841-4793 4072-1937 24 Hour Total INTAKE Shift Total(mL/kg) OUTPUT Urine(mL/kg/hr) 305 305 Shift Total(mL/kg) 305(2.5) 305(2.5) Weight (kg) 122.5 122.5 122.5 122.5 No data found. Lines, ET tube, Devices Lines - none Medications ampicillin-sulbactam (UNASYN) 3 g ivpb minibag 3 g Intravenous 3 times per day valproate sodium (DEPACON) IVPB 250 mg Intravenous Q8H lidocaine 1 % injection 5 mL Intradermal Once sodium chloride flush 10 mL Intravenous 2 times per day sodium chloride flush 10 mL Intravenous 2 times per day heparin flush 250 Units Intravenous 2 times per day potassium chloride 20 mEq Oral Once metoprolol 50 mg Oral BID cloNIDine 0.1 mg Oral Once pantoprazole 40 mg Oral QAM AC [Held by provider] QUEtiapine 25 mg Oral BID sodium chloride flush 10 mL Intravenous 2 times per day enoxaparin 40 mg Subcutaneous Daily PRN potassium chloride, potassium chloride OR potassium alternative oral replacement OR potassium chloride, sodium chloride flush, heparin flush, haloperidol lactate, ipratropium-albuterol, racepinephrine HCl, sodium chloride nebulizer, iopamidol, sodium chloride flush, promethazine OR ondansetron, acetaminophen IV Diet/Nutrition DIET GENERAL; Dental Soft Dietary Nutrition Supplements: Low Calorie High Protein Supplement Exam Constitutional - decreased mental status General Appearance ill-appearing obese female HEENT - Normocephalic, atraumatic. PERRLA, sclarea is anicteric, conjunctiva is pink, nasal mucosa is normal, no congestion, external ears are intact. Lungs - moderate to severe tachypnea, Poor air entry bilaterally, diminished breathe sounds at the bases, bilateral rales in the bases Cardiovascular - Heart sounds are normal. normal rate and rhythm regular, no murmur, gallop or rub. Abdomen - soft, nontender, nondistended, no masses or organomegaly Neurologic - CN II-XII are grossly intact. There are no focal motor deficits grossly Skin - no bruising or bleeding, good turgor, normal warmth Extremities - no cyanosis, clubbing or edema Lab Results CBC Lab Results Component Value Date WBC 10.6 10/21/2019 WBC 10.4 04/28/2015 RBC 3.47 10/21/2019 HGB 11.1 10/21/2019 HCT 33.5 10/21/2019 PLT 366 10/21/2019 MCV 96.5 10/21/2019 MCH 32.0 10/21/2019 MCHC 33.1 10/21/2019 RDW 15.2 10/21/2019 SEGSPCT 70.0% 04/28/2015 LYMPHOPCT 11.9 10/21/2019 MONOPCT 7.5 10/21/2019 MONOPCT 5.1% 04/28/2015 BASOPCT 0.8 10/21/2019 BASOPCT 1.0% 04/28/2015 MONOSABS 0.8 10/21/2019 MONOSABS 0.5 04/28/2015 LYMPHSABS 1.3 10/21/2019 LYMPHSABS 2.5 04/28/2015 EOSABS 0.3 10/21/2019 EOSABS 0.0 04/28/2015 BASOSABS 0.1 10/21/2019 BASOSABS 0.1 04/28/2015 BMP Lab Results Component Value Date NA 143 10/21/2019 K 2.8 10/21/2019 CL 107 10/21/2019 CO2 25 10/21/2019 BUN 17 10/21/2019 CREATININE 0.36 10/21/2019 GLUCOSE 98 10/21/2019 IONCA 3.50 10/05/2019 LFTS Lab Results Component Value Date ALKPHOS 107 10/21/2019 ALT 126 10/21/2019 AST 72 10/21/2019 PROT 7.6 10/21/2019 BILITOT 0.7 10/21/2019 BILIDIR 0.0 10/21/2019 LABALBU 3.4 10/21/2019 ABG Lab Results Component Value Date PH 7.42 10/05/2019 Lactic Acid Lab Results Component Value Date LACTA 1.3 10/03/2019 Cultures pending Radiology CTA chest 10/20/2019 Reviewed (See actual reports for details) ASSESSMENT AND PLAN Acute encephalopathy/seizures, on IV valprioc acid, improved mental status this morning, magnetic resonance brain-does not show any acute changes Acute respiratory failure with hypoxemia status post mechanical ventilation, extubated on September, now having intermittent episodes of hypoxia, mild respiratory acidosis, wean off NIV as tolerated supplemental oxygen to keep oxygen saturation above 90 percentile Alleged intentional drug overdose(amitriptyline and Lyrica) with persistent encephalopathy, patientbeing seen by psychiatry Possible aspiration pneumonia patient was treated for MSSA/Corynebacterium pneumonia with antibiotics, patient restarted on antibiotics for possible aspiration due to change in mental status within questionable new right middle lobe infiltrate-continue antibiotics for now Hypokalemia replacement protocol Bipolar disorder with schizoaffective disorder, seen by psychiatry was to be transferred to [place] once clinically stable History of multiple sclerosis/debility patient is wheelchair bound at baseline, resume physical therapy occupational therapy when able Morbid obesity Wean oxygen as tolerated. Keep O2 sat 90-92% Stress ulcer prophylaxis Use replacement protocols DVT prophylaxis Case discussed with nurse, Questions and concerns addressed. Total critical care time caring for this patient with life threatening, unstable organ failure, including direct patient contact, management of life support systems, review of data including imaging and labs, discussions with other team members and physicians at least 35 minutes so far today, excluding procedures. * Des Romero MD - 10/20/2019 3:46 PM EDT [facility], Pulmonary Critical Care and Sleep Medicine [address] [place] [address] Critical Care Note: Patient - Charlie Nguyen, Age - 64 y.o. - 1955 Room Number - [address] [place] [id number] [id number] Date of Admission - 10/03/2019 7:34 AM Hospital Day - 17 HPI/Subjective Patient transferred to the Intensive Care Unit from telemetry unit for change in mental status patient had 2 episodes were decreased mental status/hypoxia, as per patient's daughter before these episodes patient had an abnormal movements in her armsseizure-like activitypatient hard to arouse fromthese episodes Active Hospital Problem List Active Hospital Problems Diagnosis Date Noted Metabolic encephalopathy [G93.41] 10/20/2019 Palliative care encounter [Z51.5] 10/20/2019 Unspecified mood (affective) disorder (HCC) [F39] Acute respiratory failure with hypoxia (HCC) [J96.01] Intentional drug overdose (HCC) [T50.902A] 10/03/2019 Drug overdose, multiple drugs, accidental or unintentional, initial encounter [T50.911A] 10/03/2019 Events of Past 24 Hours As above All other systems reviewed Vitals height is 5' 9 (1.753 m) and weight is 270 lb (122.5 kg). Her temporal temperature is 96.8 F (36 C). Her blood pressure is 131/83 and her pulse is 91. Her respiration is 20 and oxygen saturation is 96%. Range Data Temperature Range: Temp: 96.8 F (36 C)Temp Av.5 F (36.4 C) Min: 96.8 F (36 C) Max: 98 F (36.7 C) BP Range: Systolic (24hrs), Av , Min:125 , Max:168 Diastolic (24hrs), Av, Min:68, Max:109 Pulse Range: Pulse Av.9 Min: 75 Max: 110 Respiration Range: Resp Av.7 Min: 16 Max: 28SpO2: 96 % 24hr Pulse Ox Range: SpO2 Av.6 % Min: 78 % Max: 96 % O2 Flow Rate (L/min): 4 L/min I/O No intake or output data in the 24 hours ending 10/20/19 1547 No intake/output data recorded. No data found. Lines, ET tube, Devices Lines - none Medications ampicillin-sulbactam (UNASYN) 3 g ivpb minibag 3 g Intravenous 3 times per day valproate sodium (DEPACON) IVPB 250 mg Intravenous Q8H lidocaine 1 % injection 5 mL Intradermal Once sodium chloride flush 10 mL Intravenous 2 times per day sodium chloride flush 10 mL Intravenous 2 times per day heparin flush 250 Units Intravenous 2 times per day potassium chloride 20 mEq Oral Once metoprolol 50 mg Oral BID cloNIDine 0.1 mg Oral Once pantoprazole 40 mg Oral QAM AC [Held by provider] QUEtiapine 25 mg Oral BID sodium chloride flush 10 mL Intravenous 2 times per day enoxaparin 40 mg Subcutaneous Daily PRN sodium chloride flush, heparin flush, haloperidol lactate, ipratropium- albuterol, racepinephrine HCl, sodium chloride nebulizer, iopamidol, sodium chloride flush, promethazine OR ondansetron, acetaminophen IV Diet/Nutrition DIET GENERAL; Dental Soft Dietary Nutrition Supplements: Low Calorie High Protein Supplement Exam Constitutional - decreased mental status General Appearance ill-appearing obese female HEENT - Normocephalic, atraumatic. PERRLA, sclarea is anicteric, conjunctiva is pink, nasal mucosa is normal, no congestion, external ears are intact. Lungs - moderate tachypnea, Poor air entry bilaterally, diminished breathe sounds at the bases, bilateral rales in the bases Cardiovascular - Heart sounds are normal. normal rate and rhythm regular, no murmur, gallop or rub. Abdomen - soft, nontender, nondistended, no masses or organomegaly Neurologic - CN II-XII are grossly intact. There are no focal motor deficits grossly Skin - no bruising or bleeding, good turgor, normal warmth Extremities - no cyanosis, clubbing or edema Lab Results CBC Lab Results Component Value Date WBC 10.8 10/19/2019 WBC 10.4 04/28/2015 RBC 3.61 10/19/2019 HGB 11.6 10/19/2019 HCT 35.7 10/19/2019 PLT 378 10/19/2019 MCV 98.6 10/19/2019 MCH 32.0 10/19/2019 MCHC 32.4 10/19/2019 RDW 15.5 10/19/2019 SEGSPCT 70.0% 04/28/2015 LYMPHOPCT 12.7 10/19/2019 MONOPCT 7.5 10/19/2019 MONOPCT 5.1% 04/28/2015 BASOPCT 1.2 10/19/2019 BASOPCT 1.0% 04/28/2015 MONOSABS 0.8 10/19/2019 MONOSABS 0.5 04/28/2015 LYMPHSABS 1.4 10/19/2019 LYMPHSABS 2.5 04/28/2015 EOSABS 0.3 10/19/2019 EOSABS 0.0 04/28/2015 BASOSABS 0.1 10/19/2019 BASOSABS 0.1 04/28/2015 BMP Lab Results Component Value Date NA 142 10/19/2019 K 3.2 10/19/2019 CL 108 10/19/2019 CO2 24 10/19/2019 BUN 21 10/19/2019 CREATININE 0.37 10/19/2019 GLUCOSE 90 10/19/2019 IONCA 3.50 10/05/2019 LFTS Lab Results Component Value Date ALKPHOS 106 10/19/2019 ALT 156 10/19/2019 AST 103 10/19/2019 PROT 7.2 10/19/2019 BILITOT 0.7 10/19/2019 BILIDIR 0.0 10/19/2019 LABALBU 3.4 10/19/2019 ABG Lab Results Component Value Date PH 7.42 10/05/2019 Lactic Acid Lab Results Component Value Date LACTA 1.3 10/03/2019 Cultures pending Radiology CXR 10/20/2019 Reviewed (See actual reports for details) ASSESSMENT AND PLAN Acute encephalopathy/seizures, transfer patient to Intensive Care Unit-4 closer monitoring, appreciate neurology input Acute respiratory failure with hypoxemia status post mechanical ventilation, extubated on September, now having intermittent episodes of hypoxia, mild respiratory acidosis, start on NIV as tolerated supplemental oxygen to keep oxygen saturation above 90 percentile Alleged intentional drug overdose(amitriptyline and Lyrica) with persistent encephalopathy, patientbeing seen by psychiatry Possible aspiration pneumonia patient was treated for MSSA/Corynebacterium pneumonia with antibiotics, patient restarted on antibiotics for possible aspiration due to change in mental status within questionable new right lower lobe infiltrate History of multiple sclerosis/debility patient is wheelchair bound at baseline, resume physical therapy occupational therapy when able Morbid obesity Wean oxygen as tolerated. Keep O2 sat 90-92% Stress ulcer prophylaxis Use replacement protocols DVT prophylaxis Case discussed with nurse and family.-Discussed IMS physician Questions and concerns addressed. Total critical care time caring for this patient with life threatening, unstable organ failure, including direct patient contact, management of life support systems, review of data including imaging and labs, discussions with other team members and physicians at least 35 minutes so far today, excluding procedures. * Elidia Solis MD - 10/20/2019 2:11 PM EDT The statement of expert evaluation was filled out and give to the social services director. I also spoke with her daughter and informed her that evaluation has been filled out. Signing off for now. Contact with any concerns or questions * Doris Brink PTA - 10/20/2019 1:21 PM EDT Physical Therapy Facility/Department: [facility] Daily Treatment Note NAME: Charlie Nguyen : 1955 Date of Service: 10/20/2019 General Chart Reviewed: Yes Missed reason: (Pt just DIRECTOR MEDICAL SCIENCE'd. Will hold therapy until more stabilized and may need PT to readdressgoals. Will continue to follow) Doris Brink BOWLING PIN REFINISHER * Kristen Burton, MAIL PROCESSING CLERK - 10/20/2019 1:10 PM EDT Speech Language Pathology Pt with recent DIRECTOR MEDICAL SCIENCE. Pt became unresponsive and eyes rolled back in head. D/W Dr. Corona briefly after DIRECTOR MEDICAL SCIENCE. Neurology was consulted. Will follow up as medically stable. Concern with aspiration and crackles bases/rhonchi. Pt's status waxes and wanes. * Kristen Howard OTA - 10/20/2019 12:03 PM EDT Occupational Therapy Facility/Department: [facility] Daily Treatment Note NAME: Charlie Nguyen : 1955 Date of Service: 10/20/2019 Discharge Recommendations: Subacute/Halfway Facility, Continue to assess pending progress, LTACH Assessment Assessment: Pt more pleasant and cooperative today. Able to have appropriate conversation approx 60% of the time. Participated in bed mobility and trying to reach for the bed rail. Active participation with BUE exersises. Would benefit from continued OT to increase strength and endurance needed for ADL;s and bed mobility. REQUIRES OT FOLLOW UP: Yes Safety Devices Safety Devices in place: Yes Type of devices: All fall risk precautions in place;Call light within reach;Patient at risk for falls;Left in bed;Nurse notified Patient Diagnosis(es): The primary encounter diagnosis was Intentional drug overdose, initial encounter (HCC). Diagnoses of Acute hypoxemic respiratory failure (HCC) and Leukocytosis, unspecified type were also pertinent to this visit. has a past medical history of Anxiety, Brain tumor (HCC), Depression, GERD (gastroesophageal refluxdisease), Headache, Ischemic colitis (HCC), and MS (multiple sclerosis) (HCC). has a past surgical history that includes Hysterectomy; Tubal ligation; knee surgery (Right, 06/2016); and bronchoscopy (10/06/2019). Restrictions Restrictions/Precautions Restrictions/Precautions: Up as Tolerated, General Precautions, Fall Risk(HICU telemetry, catheter,FMS rectal tube, 3L of O2, high fall risk) Subjective General Chart Reviewed: Yes Additional Pertinent Hx: MS, brain tumor 2015 Family / Caregiver Present: (sitter) Subjective Subjective: Pt more cooperative today. Conversation 60% appropriate. General Comment Comments: Pt in bed with O2 off. Sitter attempted to put on but pt refused. O2 sat at 86%. AUGUSTINE donned O2 with no resistance from pt and O2 back up to 93 % after a few min. Vital Signs Patient Currently in Pain: Denies Objective ADL Grooming: Minimal assistance(Pt washed face with set up. ) Toileting: Dependent/Total Additional Comments: Pt found to be incontinent of urine. Assist of nursing staff to clean up and apply skin barrier. Bed mobility Rolling to Left: Maximum assistance;2 Person assistance Rolling to Right: 2 Person assistance;Maximum assistance Comment: Pt attempted to reach for the side rails when miguel rolled L<>R for getting cleaned up. Pt cooperative but rigid. Max assist x 2 needed. Type of ROM/Therapeutic Exercise Type of ROM/Therapeutic Exercise: AROM Comment: Pt ageeed to BUE exercises in the bed. Folled verbal and visual directions. Pt with limited participation due to c/o being cold. Extra blanket put on pt and sitter turned off the fan per pt request. Exercises Shoulder Flexion: 10 reps x 2 with BUE-AROM Elbow Flexion: 10 reps x 2 with BUE- AROM Elbow Extension: 10 reps x 2 with BUE- AROM Plan Plan Times per week: 3 visits Times per day: Daily Current Treatment Recommendations: Strengthening, Balance Training, Endurance Training, Neuromuscular Re-education, Equipment Evaluation, Education, & procurement, Cognitive Reorientation, Cognitive/Perceptual Training, Self-Care / ADL, Safety Education & Training Plan Comment: Goals and POC were established in collaboration with patient. Goals Short term goals Time Frame for Short term goals: 5 visits Short term goal 1: Pt will complete bed mobility at MIN ASSIST in order to improve participation inADL routine. progressing Short term goal 2: Pt will gurinder >10 min of functional EOB sitting during ADLs. NA Short term goal 3: Pt will complete UB ADLs and grooming tasks at SUP. slow progress Short term goal 4: Pt will gurinder B UE ther exe to promote strength for ADLs and transfers. progressing Short term goal 5: Pt will demonstrate improved orientation and ability to utilize call light to make needs known 100% of the time this admission. NA Patient Goals Patient goals : improve ADL indep Therapy Time Individual Concurrent Group Co-treatment Time In 906 Time Out 09 Minutes 15 Timed Code Treatment Minutes: 14 Minutes(ther ex) ARTHUR Tierney * Clinton Deleon MD - 10/20/2019 10:30 AM EDT [facility], Pulmonary Critical Care and Sleep Medicine [address] [place] [address] Patient - Charlie Nguyen, Age - 64 y.o. - 1955 Room Number - [id number] Consulting - Max Bob DO Primary Care Physician - Moreno Oates Date of Admission - 10/03/2019 7:34 AM Hospital Day - 17 I have evaluated the patient and reviewed the case with the FURNITURE FINISHER. I agree with the current plan of care including the workup, evaluation, management, and diagnosis. Care plan has been discussed. I independently examined and evaluated the patient. The documentation below has been reviewed and edited as needed to reflect the findings of my evaluation. Patient was more awake and alert this morning May be having recurrent seizure Agreed with EEG/ Neurology evaluation Subjective/Events Past 24 hours/ROS Patient awake lying in bed. Confused this morning believing her case monitor is her telephone.However more awake and alert than yesterday. In no acute distress this morning. Declined BiPAP lastnight. All other systems reviewed Objective Vitals height is 5' 9 (1.753 m) and weight is 270 lb (122.5 kg). Her temporal temperature is 98 F (36.7 C). Her blood pressure is 125/89 and her pulse is 110. Her respiration is 24 and oxygen saturation is96%. I/O No intake or output data in the 24 hours ending 10/20/19 1320 No data found. Exam General Appearance Awake, alert, in no acute respiratory distress HEENT - normocephalic, atraumatic, sclarea is anicteric, conjunctiva is pink, nasal mucosa is normal, no congestion, external ears are intact. Neck - Supple, trachea midline Lymph nodes- no cervical, clavicular, or posterior auricular lymphadenopathy Lungs Normal effort, few scattered rhonchi bilaterally. Cardiovascular - Heart sounds are normal. Regular rate and rhythm Abdomen - Soft, nontender, nondistended, no masses or organomegaly Neurologic - Awake, alert, follows commands. Cranial nerves II-XII are intact, There are no focal motor deficits grossly Skin - No bruising or bleeding, good turgor, normal warmth Extremities - No clubbing, cyanosis, edema Peripheral pulses- present bilaterally and symmetric Psychiatric: appropriate, oriented to person and place. Meds levetiracetam 500 mg Intravenous BID ampicillin-sulbactam (UNASYN) 3 g ivpb minibag 3 g Intravenous 3 times per day potassium chloride 20 mEq Oral Once metoprolol 50 mg Oral BID cloNIDine 0.1 mg Oral Once pantoprazole 40 mg Oral QAM AC [Held by provider] QUEtiapine 25 mg Oral BID sodium chloride flush 10 mL Intravenous 2 times per day enoxaparin 40 mg Subcutaneous Daily haloperidol lactate, ipratropium-albuterol, racepinephrine HCl, sodium chloride nebulizer, iopamidol, sodium chloride flush, promethazine OR ondansetron, acetaminophen Labs CBC Recent Labs 10/19/19 0440 WBC 10.8* HGB 11.6* HCT 35.7 MCV 98.6* PLT 378 BMP: Recent Labs 10/19/19 0440 NA 142 K 3.2* CL 108* CO2 24 BUN 21* CREATININE 0.37* GLUCOSE 90 ABG: Lab Results Component Value Date PH 7.42 10/05/2019 No results found for: IFIO2, MODE, SETTIDVOL, SETPEEP LIVER PROFILE Recent Labs 10/19/19 0440 AST 103* ALT 156* BILIDIR 0.0 BILITOT 0.7 ALKPHOS 106 INR No results found for: INR, PROTIME PTT No results found for: APTT Cultures Respiratory culture + MSSA Respiratory culture + Staph aureus and Corynebacterium striatum Urine antigens negative Blood cultures- NGTD COVID-19 negative Active Hospital Problem List Active Hospital Problems Diagnosis Date Noted Metabolic encephalopathy [G93.41] 10/20/2019 Palliative care encounter [Z51.5] 10/20/2019 Unspecified mood (affective) disorder (HCC) [F39] Acute respiratory failure with hypoxia (HCC) [J96.01] Intentional drug overdose (HCC) [T50.902A] 10/03/2019 Drug overdose, multiple drugs, accidental or unintentional, initial encounter [T50.041A] 10/03/2019 Assessment and Plan Acute hypoxic respiratory failure s/p mechanical ventilation likely r/t aspiration - Extubated 10/11 - Continue supplemental O2 to maintain SpO2 92%. Wean off as patient tolerates. - BD therapy continued. - Declined BiPAP last night. Unresponsive episode 10/18/19 - more awake and alert this morning. Lying in bed. - DIRECTOR MEDICAL SCIENCE was called 10/17. ABG normal. CXR no significant change. - complete Augmentin course. MSSA/ Corynebacterium pneumonia/ RLL atelectasis - s/p bronchoscopy on 10/06/19 - completed ABx course. - Diet per ST recommendations - COVID-19 negative Acute encephalopathy secondary to drug overdose (amitriptyline and Lyrica) - CT head negative - supportive care - improving Transaminitis - monitor LFT's, improving - as per PCP ? Intentional drug overdose/ Hx anxiety and depression - As per Psychiatry. Hx Multiple sclerosis/ debility -PT/OT. Wheelchair at baseline GI prophylaxis- PPI DVT prophylaxis- Lovenox SQ Code status- Limited Code. Okay for NIV CM/SW on board for discharge planning. Planning for LTAC at discharge. Addendum 1250 DIRECTOR MEDICAL SCIENCE called again today for patient as patient became unresponsive again. Reportedly started gargling and eyes rolled to back of her head per bedside sitter. STAT CXR and ABG were ordered. Placed on Unasyn again by PCP for Aspiration pneumonia/pneumonitis. ABG pH 7.390/ pCO2 42.0/ pO2 107. Patient had declined am medications as well. PCP started on Keppra IV ordered EEG as well asplaced consult to Neurology. Case discussed with nurse and patient Questions and concerns addressed. * Shaheen Man, DO - 10/20/2019 10:05 AM EDT [facility] Palliative Care Transitions of Care Note Charlie Nguyen : 1955 ADMIT DATE: 10/03/2019 DISCHARGE DATE: TBD, palliative signed off 10/20/19 PRIMARY CARE PHYSICIAN: Moreno Oates CODE STATUS: DNRCCA/DNI DISCHARGE DIAGNOSES: Active Problems: Intentional drug overdose (HCC) Drug overdose, multiple drugs, accidental or unintentional, initial encounter Acute respiratory failure with hypoxia (HCC) Unspecified mood (affective) disorder (HCC) Metabolic encephalopathy Palliative care encounter Resolved Problems: * No resolved hospital problems. * HOSPITAL COURSE: 64 y.o. female who presented with altered mental status. Admitted to ICU for respiratory failure requiring intubation due to encephalopathy from drug overdose. Consultation requested for Symptom management and Family support. 0 ER visits and 0 hospitalizations in the last 12 months. Patient is intubated and unable to provide history. History is obtained from chart and family. At baseline patient is non-ambulatory and transfers to [facility] at home. She has not walked in 2 years. They report horrible house conditions. has not had contact with the patient for years. The patient's children offer some support, but she does not permit much help. They report issues with depression/anxiety for decades. Multiple knee surgeries with continued functional decline. They are certain that she would not want to live with extended life support measures. They report possibly one other attempt at suicide completion in her lifetime. Details are unknown. Goals of care -patient lacks capacity for medical decision-making. Confirmed by psychiatry. -surrogate decision-maker is legally her ( 5-6 years), Brayden Nguyen ([phone]). Family prefers that Vicente Driscoll (daughter) is contacted first ([phone]). She has 2 living adultchildren (Vicente and Art) who are involved and can support decision-making. -with no specific terminal illness, must continue routine medical care with limitations as agreed to by patient earlier on in the hospital stay and family. DNRCCA/DNI. Acute respiratory failure with hypoxia -2/2 encephalopathy/drug overdose/pneumonia -SARS-CoV-2 negative -intubated 10/03/19-10/09/19, failed HFNC/NIV, reintubated 10/09/19-10/12/19 -supplemental oxygen requirement via nasal cannula Acute encephalopathy/confusion -worsened today -unclear if metabolic or behavioral -appreciate psychiatry input on capacity for disposition planning. MSSA pneumonia -s/p bronch 10/06/19 due to copious secretions -completed abx course Prescription drug overdose -psych following Depression/anxiety -longstanding issue per family -see Dr Celestin in [place] -psych following Multiple sclerosis/debility -follows with the [facility] as outpatient -uses wheelchair at baseline -outpatient records on chart from 2014, but doesn't give picture of terminal illness -would need neurologic input to determine severity of illness to give prognosis Palliative care encounter -DNRCCA/DNI->ordered as limited code -goals of care established -social work and RN CM discharge planning -signoff DISPOSITION: Long-Term Acute Care FACILITY/HOME CARE AGENCY NAME: [facility] Follow up with Nursing facility on appointment scheduled. SIGNED: Shaheen Man DO 10/20/2019, 10:01 AM * Scott Corona MD - 10/20/2019 8:01 AM EDT Hospitalist Progress Note 10/20/2019 8:01 AM [phone]: Please page me ([phone]) for patient care issues. [phone]: Please page [facility] night Hospitalist for any issues. Subjective: Admit Date: 10/03/2019 PCP: Moreno Oates Room#: 258/2581 Interval History: Pt with increased confusion today. More awake but at times discussing that there are people that shouldn't hear our conversation. [place] patient was having a conversation on her cell phone which was the telemetry box for her monitoring. When redirected, pt is still AAOx 3. Refusing medications this morning. DIET GENERAL; Dental Soft Dietary Nutrition Supplements: Low Calorie High Protein Supplement No data found. 24HR INTAKE/OUTPUT: No intake or output data in the 24 hours ending 10/20/19 0801 Past Medical History: Diagnosis Date Anxiety Brain tumor (HCC) 02/01/2015 Found small tumor, has appt with neurologist in May Depression GERD (gastroesophageal reflux disease) Headache Ischemic colitis (HCC) MS (multiple sclerosis) (HCC) Medications: amoxicillin-clavulanate 1 tablet Oral 2 times per day potassium chloride 20 mEq Oral Once metoprolol 50 mg Oral BID cloNIDine 0.1 mg Oral Once pantoprazole 40 mg Oral QAM AC [Held by provider] QUEtiapine 25 mg Oral BID sodium chloride flush 10 mL Intravenous 2 times per day enoxaparin 40 mg Subcutaneous Daily LABS: CBC: Recent Labs 10/18/19 1723 10/19/19 0440 WBC 12.8* 10.8* RBC 3.70* 3.61* HGB 11.8 11.6* HCT 35.7 35.7 MCV 96.4 98.6* RDW 15.6* 15.5* PLT 459* 378 BMP: Recent Labs 10/18/19 1723 10/19/19 0440 NA 141 142 K 3.1* 3.2* CL 107 108* CO2 23 24 BUN 23* 21* CREATININE 0.48* 0.37* GLUCOSE 120* 90 CALCIUM 8.4 8.0* ANIONGAP 12 10 LIVER PROFILE: Recent Labs 10/18/19 1723 10/19/19 0440 AST 110* 103* ALT 165* 156* BILITOT 0.7 0.7 ALKPHOS 126 106 LABALBU 3.6 3.4* PROT 7.6 7.2 PT/INR: No results for input(s): PROTIME, INR in the last 72 hours. CARDIAC ENZYMES: No results for input(s): TROPONINI in the last 72 hours. Procalcitonin: Lab Results Component Value Date PROCAL 0.60 10/04/2019 Objective: Vitals: BP 125/84 Pulse 82 Temp 97 F (36.1 C) (Temporal) Resp 16 Ht 5' 9 (1.753 m) Wt 270 lb (122.5 kg) SpO2 90% BMI 39.87 kg/m Pulse Ox: SpO2 Av.4 % Min: 89 % Max: 94 % Supplemental O2: O2 Flow Rate (L/min): 4 L/min General appearance: AAO x 3 today; Morbidly obese female HEENT: Normal cephalic, atraumatic without obvious deformity. Pupils equal, round, and reactive to light. Extra ocular muscles intact. Conjunctivae/corneas clear. Neck: Supple, with full range of motion. No jugular venous distention. Trachea midline. No lymphadenopathy. Respiratory: Scattered rhonchi bilaterally Cardiovascular: Regular rate and rhythm with normal S1/S2 without murmurs, rubs or gallops. Abdomen: Soft, non-tender, non-distended with normal bowel sounds. No rebound or guarding. Musculoskeletal: No clubbing, cyanosis or edema bilaterally. Full range of motion without deformity. Skin: Skin color, texture, turgor normal. No rashes or lesions. Neurologic: Neurovascularly intact without any focal sensory/motor deficits. Cranial nerves: II-XIIintact, grossly non-focal. Assessment 1. Acute hypoxic resp failure s/p extubation 10/11 - Likely 2/2 Aspiration; Wean oxygen as tolerated; Covering for aspiration 2/2 unresponsive episode yesterday; Amox-clav to finish today 2. Acute metabolic encephalopathy 2/2 drug overdose - Amitriptyline / Lyrica; Pt improved today; Monitor; Avoid SSRIs/ anti-depressants 3. MSSA/ Corynebacterium pneumonia s/p bronch 10/05 - Linezolid finished 4. Intentional OD - Plan for [facility]; Psychiatry to begin guardianship forms and capacity 5. Transaminitis - Improved; Possibly 2/2 Linezolid; Monitor 6. Tachycardia - Resolved with BB 7. HTN - Restart BB 8. Hypokalemia - Resolved 9. Multiple sclerosis 10. Morbid Obesity due to excess calories 11. Depression 12. GERD 13. COVID-19 negative Plan - Antibiotics -LTAC -palliative care following -am labs, replace lytes prn -increase activity/PT/OT -DVT prophylaxis: [x] Lovenox [] Heparin [] SCDs [x] Encourage ambulation [] Already on Anticoagulation Advance Directive: Limited Discharge plannin-48 hours Scott Corona MD Division of Hospitalist Medicine Inpatient Medical Services PAGER: [phone] * Sunday Cao RN - 10/20/2019 4:42 AM EDT Pt Mushtaq hunter not able to draw morning lab. Notified Dr. Dr. Ford. * Sepideh Lopez RCP - 10/20/2019 12:01 AM EDT [facility] Respiratory Care Department Progress Note Patient was seen in attempts to fulfill CPAP/BiPAP/AutoPAP order. Patient refused PAP therapy/studyat this time. Patient was educated on medical need and reasoning for physician order to ensure patient was making an informed medical decision. All of the patient's questions were answered at this time and patient was informed that if the patient changes their mind regarding wearing PAP to hit their call light or inform their nurse to contact Respiratory. A second, consecutive night of refusing PAP therapy/study results in order completion in the EMR. If future CPAP/BiPAP/AutoPAP therapy or study is indicated please place another order in the EMR and the assigned Respiratory Therapist will reattempt to fulfill orders. Comment or reasoning for refusal: Patient states the mask hurts her forehead. Duoderm and another interface were offered. Patient said no. NC was noted to be out of nose, resting outside of the nareson the face. Patient placed back on 4L NC and SpO2 checked, was 90-91%, carie to 93% after oxygen applied correctly. Thank you for involving Respiratory in the care of this patient, * Dulce Maira Kohler RN - 10/19/2019 3:45 PM EDT Feeding self with set up. Responding to verbal stimuli with sentences, expressing concerns over family matters, then becoming guarded when questioned. Appears most upset over family not taking her home. Allowed to verbalize concerns. * Kristen Burton, MAIL PROCESSING CLERK - 10/19/2019 10:48 AM EDT Speech Language Pathology Facility/Department: [facility] TELEMETRY Speech Language/Dysphagia Daily Therapy Note NAME: Charlie Nguyen : 1955 Patient Diagnosis(es): Patient Active Problem List Diagnosis Migraine Internal derangement of right knee Glioma (HCC) Hypertension Chronic nonintractable headache Intentional drug overdose (HCC) Drug overdose, multiple drugs, accidental or unintentional, initial encounter Acute respiratory failure with hypoxia (HCC) Unspecified mood (affective) disorder (HCC) Allergies: Allergies Allergen Reactions Macrobid [Nitrofurantoin Monohyd Macro] Hives Hydrocodone-Acetaminophen Other reaction(s): GI Upset Didn't do anything for her pain Keflex [Cephalexin] Anxiety Pt was sleeping, c/o headache this am. She refused her tylenol for nursing. Pt experienced DIRECTOR MEDICAL SCIENCE lastevening with period of unresponsiveness. She had audible wheezes and crackles-cxray was negative for new processes: The trachea is midline. The heart is not enlarged. No focal areas of consolidation or volume loss are seen. There are no pleural effusions. The pulmonary vasculature may be at most mildly congested. The visualized bony structures are intact. D/C to [place] was cx. Last pm (10/17) 3L nasal cannula Oral Motor / Motor Speech/Swallowing: Pt repositioning in bed. Manual therapy/massage to left and right side of neck. Assist with increased awareness of favoring and head turn to the right side. Pt would benefit from out of bed when and able to tolerate. Should ROM and to assist with positioning for oral intake. Pt accepted tylenol crushed in applesauce, c/o bad taste. Liquid chaser via straw sips to clear. Pt accepted and self fed bites of demi crackers. Mastication appears slight prolonged with limited ROM however functional for oral clearing and transit without overt symptoms of pharyngeal deficits. More alert this date, however continue dental soft for ease of oral preparation. Staff is consistent with assist to feed. Cognitive Linguistic: Pt was alert and oriented to person, place, month, year. Assist with date. C/o vision being blurry. She was not consistent with being able to identify number of fingers being held up in front of her. She typically wears glasses that are not available. Reasoning task with moderate cues-for comparison/identifying similarities and differences. Improved attention to task at hand, minimal cues for following through with task. Pt did have few tangent thoughts and was able to redirect with min to moderate prompts. Impressions: Plan for psychiatric stay when medically stable. Concern with need for eventual neuro work-up for MS. Uncertain if left facial weakness is new. Pt is functional with speech and swallowing function when alert, willing to participate. Pt not hallucinating this date. Less perseveration ondeath, whores...and answering questions more appropriate. Spoke briefly with Palliative Care, re: pt status. Plan: Continued daily Speech/Language and dysphagia treatment with goals per plan of care. Kristen Burton M.A., DALTON-MAIL PROCESSING CLERK Speech-Language Pathologist Time in 950 Time out 1031 * Clinton Deleon MD - 10/19/2019 10:48 AM EDT [facility], Pulmonary Critical Care and Sleep Medicine [address] [place] [address] Patient - Charlie Nguyen, Age - 64 y.o. - 1955 Room Number - [id number] Consulting - Max Bob DO Primary Care Physician - Moreno Oates Date of Admission - 10/03/2019 7:34 AM Hospital Day - 16 I have evaluated the patient and reviewed the case with the FURNITURE FINISHER. I agree with the current plan of care including the workup, evaluation, management, and diagnosis. Care plan has been discussed. I independently examined and evaluated the patient. The documentation below has been reviewed and edited as needed to reflect the findings of my evaluation DIRECTOR MEDICAL SCIENCE was called on the patient yesterday for change in MS ABG/ Cxray reviewed follow neurologically Has been placed on empiric antibiotics Subjective/Events Past 24 hours/ROS Patient awake lying in bed. Complains of headache and nausea this morning. On 4 liters NC. Wearing BiPAP at night. DIRECTOR MEDICAL SCIENCE called yesterday as patient became unresponsive and would not arouse despite sternal rub or verbal stimuli. She did arouse after suctioning was performed per notes. ABG within normal limits. All other systems reviewed Objective Vitals height is 5' 9 (1.753 m) and weight is 270 lb (122.5 kg). Her temporal temperature is 98 F (36.7 C). Her blood pressure is 153/90 (abnormal) and her pulse is 84. Her respiration is 22 and oxygen saturation is 95%. 4 liters NC. I/O Intake/Output Summary (Last 24 hours) at 10/19/2019 1048 Last data filed at 10/18/2019 1835 Gross per 24 hour Intake 0 ml Output 200 ml Net -200 ml No data found. Exam General Appearance Awake, drowsy this morning. lying in bed. On 4 liters NC. HEENT - normocephalic, atraumatic, sclarea is anicteric, conjunctiva is pink, nasal mucosa is normal, no congestion, external ears are intact. Neck - Supple, trachea midline Lymph nodes- no cervical, clavicular, or posterior auricular lymphadenopathy Lungs Normal effort, few scattered rhonchi bilaterally. No wheezing noted. Cardiovascular - Heart sounds are normal. Regular rate and rhythm Abdomen - Soft, nontender, nondistended, no masses or organomegaly Neurologic - Awake, alert, follows commands. Cranial nerves II-XII are intact, There are no focal motor deficits grossly Skin - No bruising or bleeding, good turgor, normal warmth Extremities - No clubbing, cyanosis, edema Peripheral pulses- present bilaterally and symmetric Psychiatric: flat affect, withdrawn. Unable to assess complete orientation as limited verbal communication. Meds ampicillin-sulbactam (UNASYN) 3 g ivpb minibag 3 g Intravenous Q8H potassium chloride 20 mEq Oral Once metoprolol 50 mg Oral BID cloNIDine 0.1 mg Oral Once pantoprazole 40 mg Oral QAM AC [Held by provider] QUEtiapine 25 mg Oral BID sodium chloride flush 10 mL Intravenous 2 times per day enoxaparin 40 mg Subcutaneous Daily haloperidol lactate, ipratropium-albuterol, racepinephrine HCl, sodium chloride nebulizer, iopamidol, sodium chloride flush, promethazine OR ondansetron, acetaminophen Labs CBC Recent Labs 05/20/20 0440 WBC 10.8* HGB 11.6* HCT 35.7 MCV 98.6* PLT 378 BMP: Recent Labs 10/19/19 0440 NA 142 K 3.2* CL 108* CO2 24 BUN 21* CREATININE 0.37* GLUCOSE 90 ABG: Lab Results Component Value Date PH 7.42 10/05/2019 No results found for: IFIO2, MODE, SETTIDVOL, SETPEEP LIVER PROFILE Recent Labs 10/19/19 0440 AST 103* ALT 156* BILIDIR 0.0 BILITOT 0.7 ALKPHOS 106 INR No results found for: INR, PROTIME PTT No results found for: APTT Cultures Respiratory culture + MSSA Respiratory culture + Staph aureus and Corynebacterium striatum Urine antigens negative Blood cultures- NGTD COVID-19 negative Radiology CXR 10/18/19 Reviewed (See actual reports for details) Active Hospital Problem List Active Hospital Problems Diagnosis Date Noted Unspecified mood (affective) disorder ([facility]) [F39] Acute respiratory failure with hypoxia ([facility]) [J96.01] Intentional drug overdose ([facility]) [T50.902A] 10/03/2019 Drug overdose, multiple drugs, accidental or unintentional, initial encounter [T50.911A] 10/03/2019 Assessment and Plan Acute hypoxic respiratory failure s/p mechanical ventilation likely r/t aspiration - Extubated 10/11 - Continue supplemental O2 to maintain SpO2 92%. Wean off as patient tolerates. - If plans are to d/c home with [facility] will need home O2 evaluation. - BD therapy - f/u CXR reviewed Unresponsive episode 10/18/19 - patient still a sleepy this morning however she is responding to questions - DIRECTOR MEDICAL SCIENCE was called. ABG normal. CXR no significant change. She was started on Unasyn for possible aspiration. Per ID stewardship change to po Augmentin x 2 days. MSSA/ Corynebacterium pneumonia/ RLL atelectasis - s/p bronchoscopy on 10/06/19 - completed ABx course. - Diet per ST recommendations - COVID-19 negative Acute encephalopathy secondary to drug overdose (amitriptyline and Lyrica) - CT head negative - supportive care - improving Transaminitis - monitor LFT's, improving - as per PCP ? Intentional drug overdose/ Hx anxiety and depression - As per Psychiatry. Hx Multiple sclerosis/ debility -PT/OT. Wheelchair at baseline Hypokalemia - K supplement as per PCP GI prophylaxis- PPI DVT prophylaxis- Lovenox SQ Code status- Limited Code. Okay for NIV CM/SW on board for discharge planning. Will likely need SNF at discharge. Case discussed with nurse and patient Questions and concerns addressed. * Scott Corona MD - 10/19/2019 7:12 AM EDT Hospitalist Progress Note 10/19/2019 7:12 AM [phone]: Please page me ([phone]) for patient care issues. [phone]: Please page [facility] night Hospitalist for any issues. Subjective: Admit Date: 10/03/2019 PCP: Moreno Oates Room#: 340/2581 Interval History: DIRECTOR MEDICAL SCIENCE called for unresponsiveness overnight. See significant event note for details. On BiPAP mask on initial visit, taken off. Complaining of migraine. Pt open to medications this morning. . Denies CP, SOB, abdominal pain, N/V/D, fevers, or chills. DIET GENERAL; Dental Soft Dietary Nutrition Supplements: Low Calorie High Protein Supplement No data found. 24HR INTAKE/OUTPUT: Intake/Output Summary (Last 24 hours) at 10/19/2019 0712 Last data filed at 10/18/2019 1835 Gross per 24 hour Intake 100 ml Output 200 ml Net -100 ml Past Medical History: Diagnosis Date Anxiety Brain tumor (HCC) 02/01/2015 Found small tumor, has appt with neurologist in May Depression GERD (gastroesophageal reflux disease) Headache Ischemic colitis (HCC) MS (multiple sclerosis) (HCC) Medications: ampicillin-sulbactam (UNASYN) 3 g ivpb minibag 3 g Intravenous Q8H potassium chloride 20 mEq Oral Once metoprolol 50 mg Oral BID cloNIDine 0.1 mg Oral Once pantoprazole 40 mg Oral QAM AC [Held by provider] QUEtiapine 25 mg Oral BID sodium chloride flush 10 mL Intravenous 2 times per day enoxaparin 40 mg Subcutaneous Daily LABS: CBC: Recent Labs 10/18/19 1723 10/19/19 0440 WBC 12.8* 10.8* RBC 3.70* 3.61* HGB 11.8 11.6* HCT 35.7 35.7 MCV 96.4 98.6* RDW 15.6* 15.5* PLT 459* 378 BMP: Recent Labs 10/18/19 1723 10/19/19 0440 NA 141 142 K 3.1* 3.2* CL 107 108* CO2 23 24 BUN 23* 21* CREATININE 0.48* 0.37* GLUCOSE 120* 90 CALCIUM 8.4 8.0* ANIONGAP 12 10 LIVER PROFILE: Recent Labs 10/18/193 10/19/19 0440 AST 110* 103* ALT 165* 156* BILITOT 0.7 0.7 ALKPHOS 126 106 LABALBU 3.6 3.4* PROT 7.6 7.2 PT/INR: No results for input(s): PROTIME, INR in the last 72 hours. CARDIAC ENZYMES: No results for input(s): TROPONINI in the last 72 hours. Procalcitonin: Lab Results Component Value Date PROCAL 0.60 10/04/2019 Objective: Vitals: BP (!) 140/86 Pulse 84 Temp 97.3 F (36.3 C) (Temporal) Resp 23 Ht 5' 9 (1.753 m) Wt 270 lb (122.5 kg) SpO2 95% BMI 39.87 kg/m Pulse Ox: SpO2 Av.1 % Min: 89 % Max: 96 % Supplemental O2: O2 Flow Rate (L/min): 8 L/min General appearance: AAO x 3 today; Morbidly obese female HEENT: Normal cephalic, atraumatic without obvious deformity. Pupils equal, round, and reactive to light. Extra ocular muscles intact. Conjunctivae/corneas clear. Neck: Supple, with full range of motion. No jugular venous distention. Trachea midline. No lymphadenopathy. Respiratory: Scattered rhonchi bilaterally Cardiovascular: Regular rate and rhythm with normal S1/S2 without murmurs, rubs or gallops. Abdomen: Soft, non-tender, non-distended with normal bowel sounds. No rebound or guarding. Musculoskeletal: No clubbing, cyanosis or edema bilaterally. Full range of motion without deformity. Skin: Skin color, texture, turgor normal. No rashes or lesions. Neurologic: Neurovascularly intact without any focal sensory/motor deficits. Cranial nerves: II-XIIintact, grossly non-focal. Assessment 1. Acute hypoxic resp failure s/p extubation 10/11 - Likely 2/2 Aspiration; Wean oxygen as tolerated; Covering for aspiration 2/2 unresponsive episode yesterday; Amox-clav for 48 hours per ID stewardship 2. Acute metabolic encephalopathy 2/2 drug overdose - Amitriptyline / Lyrica; Pt improved today; Monitor; Avoid SSRIs/ anti-depressants 3. MSSA/ Corynebacterium pneumonia s/p bronch 10/05 - Linezolid finished 4. Intentional OD - Psych was set up to transfer last night prior to DIRECTOR MEDICAL SCIENCE; Plan now for guardianshipand placement 5. Transaminitis - Improved; Possibly 2/2 Linezolid; Monitor 6. Tachycardia - Resolved with BB 7. HTN - Restart BB 8. Hypokalemia - Resolved 9. Multiple sclerosis 10. Morbid Obesity due to excess calories 11. Depression 12. GERD 13. COVID-19 negative Plan - Antibiotics - Placement vs C -palliative care following -am labs, replace lytes prn -increase activity/PT/OT -DVT prophylaxis: [x] Lovenox [] Heparin [] SCDs [x] Encourage ambulation [] Already on Anticoagulation Advance Directive: Limited Discharge planning: TBD Scott Corona MD Division of Hospitalist Medicine Inpatient Medical Services PAGER: [phone] * Ashley Miller RN - 10/18/2019 7:13 PM EDT [facility] notified of 3.1 potassium. * Ashley Miller RN - 10/18/2019 5:43 PM EDT Discharge cancelled. Patient remaining on 2 after DIRECTOR MEDICAL SCIENCE called. [place] notified. * Ashley Miller RN - 10/18/2019 4:25 PM EDT NOTIFIED PATIENT'S DAUGHTER, VICENTE, OF TRANSFER TONIGHT TO [facility] AROUND 8PM PICKUP. * Ashley Miller RN - 10/18/2019 4:13 PM EDT REPORT GIVEN TO DEISY BARAJAS AT [facility]. ETA OF AMBULANCE IS 2000 HRS. * Ashley Miller RN - 10/18/2019 3:49 PM EDT ATTEMPTED TO CALL REPORT TO RN ON [facility]. * Ashley Miller RN - 10/18/2019 3:46 PM EDT PATIENT GOING TO [address] ROOM [address] [phone] (REPORT LINE). * Ashley Miller RN - 10/18/2019 3:12 PM EDT [facility] CLOSED MOLDS DISCONTINUED. PATIENT HAS BED NOW AT [facility] . WILL CALL REPORT DIRECTLY AND ARRANGE FOR TRANSPORT. * Kristen Burton SLP - 10/18/2019 2:07 PM EDT Speech Language Pathology Facility/Department: [facility] 2E TELEMETRY Initial Speech/Language/Cognitive Assessment NAME: Charlie Nguyen : 1955 ADMISSION DATE: 10/03/2019 ADMITTING DIAGNOSIS: has Migraine; Internal derangement of right knee; Glioma (HCC); Hypertension; Chronic nonintractable headache; Intentional drug overdose (HCC); Drug overdose, multiple drugs, accidental or unintentional, initial encounter; Acute respiratory failure with hypoxia (HCC); and Unspecified mood (affective) disorder (HCC) on their problem list. DATE ONSET: 10/03/2019 Date of Eval: 10/18/2019 Evaluating Therapist: JIM Franz RECENT RESULTS CT OF HEAD/MRI:10/03/2019 IMPRESSION: No acute intracranial hemorrhage or mass effect. Primary Complaint: Pt with confusion and inappropriate responses. Psych vs. Cognitive deficits. Pain: No current complaints of pain. Assessment: MoCA -Abdelrahman Cognitive Assessment. Version 7.1 Visuo-Spatial / Executive Function Subtest: c/n test, pt was unwilling to hold pen Naming Subtest:0/3 , lil loaf, upset lil loaf Delayed Distracted Recall:0/5 Pt was able to repeat all 5 with second repetition Attention Subtest:0/3 she had difficulty with distraction, overstimulated with task with ID letter A Language Subtest: did not repeat, did not initiate single s word, , two, provided an exampleand she perseverated on 'lillian ...puneet cat baby Abstraction Subtest:06/02 Both expensive; their whores Orientation Subtest:07/07 1972 would not state month Overall Score: 30 Unable to complete all sections. Suggest psych follow up as pt answers many question with , whore, sad. Inconsistent with orientatation. Diagnosis: Pt demontrates flat affect, decreased attention to task and easily distracted with completion for selctive attention. Pt is tangential and focuses on , whore, sad use of words despitequestion. Thoughts are tangential and not approrpiate to question at hand. Pt is inconsistently oriented to place and time. Recommendations: Requires MAIL PROCESSING CLERK Intervention: Yes Duration/Frequency of Treatment: 5 visits D/C Recommendations: Inpatient rehabilitation Referral To: Neurology(psych) Plan: Goals: Short-term Goals Goal 1: Pt will consistently be oriented to place, month and year. Goal 2: Pt will complete functional memory/attention tasks 60% of attempts given moderate cues. Goal 3: Pt will continue cognitive testing. Goal 4: Pt will consistently follow direction to assist with ADL's 75% of attempts with min cues. Goal 5: Pt will complete general reasoning tasks 60% with moderate cues. Patient/family involved in developing goals and treatment plan: yes, discussed with pt continue questions. Subjective: Previous level of function and limitations: Lived home alone. General Chart Reviewed: Yes Subjective Subjective: Pt with many comments in relationship to . Social/Functional History Lives With: Alone Type of Home: House Cognition: MoCA -Abdelrahman Cognitive Assessment. Version 7.1 Visuo-Spatial / Executive Function Subtest: c/n test, pt was unwilling to hold pen Naming Subtest:0/3 , lil loaf, upset lil loaf Delayed Distracted Recall:0/5 Pt was able to repeat all 5 with second repetition Attention Subtest:0/3 she had difficulty with distraction, overstimulated with task with ID letter A Language Subtest: did not repeat, did not initiate single s word, , two, provided an exampleand she perseverated on 'lillian ...puneet cat baby Abstraction Subtest:1/2 Both expensive; their whores Orientation Subtest:07/07 1972 would not state month Overall Score: 4 /30 Unable to complete all sections. Suggest psych follow up as pt answers many question with , whore, sad. Inconsistent with orientatation. Prognosis: Speech Therapy Prognosis Prognosis: Fair Prognosis Considerations: Medical Diagnosis;Other (Comment);Co-Morbidities(MS vs. psychiatric vs. anoxic ) Individuals consulted Consulted and agree with results and recommendations: Patient Education: Patient Education Response: Needs reinforcement Type of devices: (sitter at bedside) Therapy Time: Individual Concurrent Group Co-treatment Time In Time Out Minutes JIM Franz 10/18/2019 2:21 PM * Doris Brink PTA - 10/18/2019 1:50 PM EDT Physical Therapy Facility/Department: [facility] 2E TELEMETRY Daily Treatment Note NAME: Charlie Nguyen : 1955 Date of Service: 10/18/2019 General Chart Reviewed: Yes Missed reason: (Pt held secondary to being discharged to psychiatric hospital today per CM.) Doris Brink PTA * Kristen Burton SLP - 10/18/2019 1:16 PM EDT Speech Language Pathology Facility/Department: [facility] 2E TELEMETRY Dysphagia Treatment Note Late entry 10/18/19 NAME: Charlie Nguyen : 1955 Patient Diagnosis(es): Patient Active Problem List Diagnosis Migraine Internal derangement of right knee Glioma (HCC) Hypertension Chronic nonintractable headache Intentional drug overdose (HCC) Drug overdose, multiple drugs, accidental or unintentional, initial encounter Acute respiratory failure with hypoxia (HCC) Unspecified mood (affective) disorder (HCC) Allergies: Allergies Allergen Reactions Macrobid [Nitrofurantoin Monohyd Macro] Hives Hydrocodone-Acetaminophen Other reaction(s): GI Upset Didn't do anything for her pain Keflex [Cephalexin] Anxiety 4L nasal cannula Current Diet Level: Dental soft; dietary is providing chopped meats. Compensatory Techniques []Chin tuck [x]Single bolus []Alternate bites/ sips [] External Pacing []No straws []Small diameter straw []Liquid wash []Swallow x 2 with each bolus []Effortful Swallow [] []Position patient upright []Upright After Meal at least 30 minutes Pain:No complaints S: Pt more alert this afternoon. O: Strengthening and endurance building, advanced diet as appropriate. A: Pt refused any po at this time. She was taking drinks of water via regular diameter straw without overt deficits. She did require pulling straw away for single sips. Pt continue with flat affect and slow to respond. Psych, choosing to participate vs. Medication. Pt did participate in 5-10 shoulder shrugs, shakier, chin push down with moderate cues. Head turn and manual techniques to assist with midline positioning. Pt posture gravitates to head turn to the right. [] Goal met [] Progressing as expected [] Progressing slower than expected [] Medical status inhibits participation [] Goals not addressed this session [] Goals revised this session [] Unable to show any progress towards functional goals [x] Progress towards functional goal is gradual / fair when alert. P: Continue as appropriate. Holding advancement in diet textures d/t fluctuation in level of alertness. Total Minutes: 20 minutes Kristen Burton M.A.CCC/MAIL PROCESSING CLERK Speech-Language Pathologist * Lisa Townsend RD, LD - 10/18/2019 11:05 AM EDT Nutrition Assessment Type and Reason for Visit: Reassess Nutrition Recommendations: 1. Continue with Dental soft. Will send chopped meats and well done/cut up vegetables. MAIL PROCESSING CLERK following. 2. Continue with Ensure high protein BID as ordered to optimize PO intakes. Ensure High Protein provides 160 kcals, 16 g protein per serving. 3. Please document pt's PO intakes via flowsheet to accurately assess PO intake adequacy. 4. Monitor intakes, wts, and labs. RD will follow. Nutrition Assessment: Pt not able to be interviewed. Pt with confusion. Psychiatry deemed incompetent to make any health care decisions at this time. Pt continues to have decreased PO. MAIL PROCESSING CLERK is following to ensure safe swallow on Dental soft diet. Malnutrition Assessment: Malnutrition Status: At risk for malnutrition Context: Acute illness or injury Findings of the 6 clinical characteristics of malnutrition (Minimum of 2 out of 6 clinical characteristics is required to make the diagnosis of moderate or severe Protein Calorie Malnutrition based on AND/ASPEN Guidelines): 1. Energy Intake-Less than or equal to 50% of estimated energy requirement, Greater than or equal to 5 days No recent intakes documented since 10/15 2. Weight Loss-No significant weight loss, Pt appears to have gained 30# in [address] charting of wt history 3. Fat Loss-Unable to assess, 4. Muscle Loss-Unable to assess, 5. Fluid Accumulation-(mild to moderate fluid accumulation), trace generalized and non pitting BUE edema; +2 pitting BLE edema 6. Director Medical Science Strength-Measurably reduced(per RN flowsheet assessment) Nutrition Risk Level: High Nutrient Needs: Estimated Daily Total Kcal: 1941-6906 kcals(25-28) Estimated Daily Protein (g): 66-79(1-1.2) Estimated Daily Total Fluid (ml/day): 2000 ml/day or per MD Nutrition Diagnosis: Problem: Inadequate oral intake Etiology: related to Insufficient energy/nutrient consumption, Cognitive or neurological impairment ? Signs and symptoms: as evidenced by Intake 0-25% Objective Information: Nutrition-Focused Physical Findings: +2 pitting BLE, trace generalized edema; trace non pitting BUE; BUN 24, glucose 105,117,106,110, Alk Phos 131, albumin 3.4 Wound Type: Stage II(stage 2 perineum) Current Nutrition Therapies: Oral Diet Orders: Dental Soft Oral Diet intake: 51-75%, 26-50%, 0% Oral Nutrition Supplement (ONS) Orders: Low Calorie High Protein Supplement ONS intake: Unable to assess Anthropometric Measures: Ht: 5' 9 (175.3 cm) Current Body Wt: 270 lb (122.5 kg) Admission Body Wt: 260 lb (117.9 kg) % Weight Change: , Unable to confirm wt history with patient at this time. Previous RD notation was30# wt gain in 11 months (240# on 10/2018) [place] Body Wt: 145 lb (65.8 kg), % [place] Body 186 BMI Classification: BMI > or equal to 40.0 Obese Class III Nutrition Interventions: Continue current diet, Continue current ONS Continued Inpatient Monitoring, Speech Therapy Nutrition Evaluation: Evaluation: Goals set Goals: Pt will receive/tolerate adequate nutrition with safe swallow; Intakes will be >75% of meals/supplements Monitoring: Meal Intake, Supplement Intake, Diet Tolerance, Skin Integrity, Wound Healing, I&O,Weight, Pertinent Labs, Monitor Bowel Function Contact Number: [phone] * Elidia Solis MD - 10/18/2019 10:32 AM EDT The patient is confused and unable to carry out a spontaneous decision. She does not understand whyand where she needs to be after discharge. She has no understanding of her illness, situation, progress and prognosis. She does not have any capacity to make any decisions about her good care at this time. If treated she may improve and may have the capacity at that time. For urgent and emergent situations, her next to kin can make decisions for her at this time. The patient has OD prior to coming to the hospital. She may benefit from inpatient psychiatric care. I will get my internal medicine involved to see if they feel that the patient is medically stable to transfer to the psychiatric unit. If not, then I will assess the patient again in the next few days and if the patient continues to be confused, will fill out the guardian ship form. I also spoke with her daughter and informed her about the plan. * Carolin Hu RN - 10/18/2019 5:39 AM EDT Patient refusing morning lab draws. IMS notified. * Carolin Hu RN - 10/17/2019 11:00 PM EDT Patient refusing any nursing assessments, as well as, refusing all medications. Patient swears at nursing staff. Was given a dose of Haldol 3mg IM at 0002, due to increased agitation. IMS notified. Will continue to monitor. * Shaheen Man DO - 10/17/2019 4:45 PM EDT Palliative Care Progress Note Chief Complaint: Charlie Nguyen is a 64 y.o. female with chief complaint of altered mental status. Assessment/Plan Active Hospital Problems Diagnosis Date Noted Unspecified mood (affective) disorder ([facility]) [F39] Acute respiratory failure with hypoxia ([facility]) [J96.01] Intentional drug overdose ([facility]) [T50.062A] 10/03/2019 Drug overdose, multiple drugs, accidental or unintentional, initial encounter [T50.839O] 10/03/2019 Goals of care -patient may lack capacity for medical decision-making. She more confused and delusional today. Strongly recommend psychiatry input for this evaluation. -surrogate decision-maker is legally her ( 5-6 years), Brayden Nguyen ([phone]). Family prefers that Vicente Driscoll (daughter) is contacted first ([phone]). She has 2 living adultchildren (Vicente and Art) who are involved and can support decision-making. Acute respiratory failure with hypoxia -2/2 encephalopathy/drug overdose/pneumonia -SARS-CoV-2 negative -intubated 10/03/19-10/09/19, failed HFNC/NIV, reintubated 10/09/19-10/12/19 -minimal supplemental oxygen requirement via nasal cannula Acute encephalopathy/confusion -worsened today -unclear if metabolic or behavioral -appreciate psychiatry input on capacity for disposition planning. Daughter reports that home condition is deplorable. Patient is a max assist for ALL ADLs and she insists on going home. This is clearly an unsafe plan. MSSA pneumonia -s/p bronch 10/06/19 due to copious secretions -completed abx course Drug overdose -psych following Depression/anxiety -longstanding issue per family -see Dr Celestin in [place] -psych following Multiple sclerosis/debility -follows with the [facility] as outpatient -uses wheelchair at baseline -outpatient records on chart from 2014, but doesn't give picture of terminal illness Palliative care encounter -DNRCCA/DNI->ordered as limited code -goals of care established -social work and RN CM discharge planning -will follow peripherally Greater than 51% of time spent, total 25 minutes in counseling and coordination of care at the bedside regarding Goals of Care and See Above Discharge planning: to be determined Patient meets criteria for general inpatient hospice care including the following: N/A- Palliative Care Patient Referrals to: none today Discussed patient and the plan of care with the other IDT membersof Palliative Care, and with Patient and Floor Nurse Subjective: Subjective/Events 64 y.o. female who presented with altered mental status. Admitted to ICU for respiratory failure requiring intubation due to encephalopathy from drug overdose. Consultation requested for Symptom management and Family support. 0 ER visits and 0 hospitalizations in the last 12 months. Interval history -no overnight events -awake, but more confused -talking nonsense today -denies pain, fever, chills, shortness of breath -tolerating PO Goals of care:Improve or Maintain Function/Quality of Life, Remain at Home and Preserve [place]/Autonomy/Control Advance Directives: limited code- no CPR or intubation, okay for NIV Surrogate: Spouse Prognosis: unknown Spiritualassessment: No spiritual distress identified Bereavement and grief: To Be Determined ROS: See palliative care ROS/ESAS below; see HPI Review of Systems Social history: [place] status: no Marital status: , 5-6 years Children: 3 children (1 daughter, 1 living son, 1 living daughter) Living status: alone Work history: Family Meeting: Participants:No Family Meeting Held Today Family meeting was held to discuss: Objective: Physical Exam BP (!) 153/97 Pulse 93 Temp 98.8 F (37.1 C) (Temporal) Resp 16 Ht 5' 9 (1.753 m) Wt 270 lb (122.5 kg) SpO2 91% BMI 39.87 kg/m Physical Exam Vitals signs reviewed. Constitutional: General: She is not in acute distress. Appearance: She is obese. She is not diaphoretic. HENT: Head: Normocephalic and atraumatic. Nose: Comments: Nasal cannula Eyes: General: Right eye: No discharge. Left eye: No discharge. Neck: Vascular: No JVD. Pulmonary: Effort: Pulmonary effort is normal. No respiratory distress. Breath sounds: No stridor. Musculoskeletal: General: No deformity (b/l LEs). Skin: General: Skin is warm and dry. Neurological: Mental Status: She is alert. Comments: Oriented to person and [place] [employer] [place], but stated this was a place for drunk people, gave year 1975 Psychiatric: Comments: Talking with bizarre tangential thoughts [place] Symptom Assessment Score [place] Score Pain Score 0 Tiredness Score 5 Nausea Score 0 Depression Score 7 Anxiety Score 0 Drowsiness Score 0 Anorexia Score (0= eating well, 10= not eating) 4 Wellbeing Score (10= worst sense of well-being) 5 Constipation 0 Dyspnea Score (0= no shortness of breath) 0 Assessed by: provider. CurrentMedications: Inpatient medications reviewed: yes 24 Hour PRN Meds: no PRN medications in 24 hours Results/Verification of Data Review Objective data reviewed: labs, images, records, medication use, vitals and chart Data in Support of Terminal Illness: Charlie Nguyen is a 64 y.o. female who was seen for [id number] on 10/10/19 who is hospice appropriate with an expected prognosis of 6 months or less due to the following: Not applicable Write hospice narrative \ * Kristen Howard OTA - 10/17/2019 2:55 PM EDT Occupational Therapy Facility/Department: [facility] TELEMETRY Daily Treatment Note NAME: Charlie Nguyen : 1955 Date of Service: 10/17/2019 Discharge Recommendations: Subacute/Halfway Facility, Continue to assess pending progress, LTACH Assessment Assessment: Pt very confused and sitter present. Pt needed max cues and was still unable to follow 90% of commands. Agitatation, lethargy and decreased cognition limits pt active participation. Pt did wipe her face and squeeze AUGUSTINE's hands. Would benefit from continued OT to increase independence for functional tasks. REQUIRES OT FOLLOW UP: Yes Safety Devices Safety Devices in place: Yes Type of devices: All fall risk precautions in place;Call light within reach;Patient at risk for falls;Left in bed;Nurse notified Patient Diagnosis(es): The primary encounter diagnosis was Intentional drug overdose, initial encounter ([facility]). Diagnoses of Acute hypoxemic respiratory failure (HCC) and Leukocytosis, unspecified type were also pertinent to this visit. has a past medical history of Anxiety, Brain tumor (HCC), Depression, GERD (gastroesophageal refluxdisease), Headache, Ischemic colitis (HCC), and MS (multiple sclerosis) ([facility]). has a past surgical history that includes Hysterectomy; Tubal ligation; knee surgery (Right, 06/2016); and bronchoscopy (10/06/2019). Restrictions Restrictions/Precautions Restrictions/Precautions: Up as Tolerated, General Precautions, Fall Risk(HICU telemetry, catheter,FMS rectal tube, 3L of O2, high fall risk) Subjective General Chart Reviewed: Yes Additional Pertinent Hx: MS, brain tumor 2014 Family / Caregiver Present: (sitter) Subjective Subjective: Pt confused. Responds correctly approx 10-20% of the time. Appears lethargic and did not want to turn her head to look at AUGUSTINE. General Comment Comments: OK to see per RN Objective ADL Grooming: Moderate assistance(Pt wiped her face with much encouragement. O2 removed briefly but pt resisting to put back on. ) Additional Comments: Pt limited by weakness, poor attention, confusion and inability to follow directions. Cognition Overall Cognitive Status: Exceptions Arousal/Alertness: Inconsistent responses to stimuli Following Commands: Inconsistently follows commands Attention Span: Attends with cues to redirect;Difficulty attending to directions;Difficulty dividing attention Memory: Decreased mcc memory;Decreased short term memory;Decreased recall of recent events;Decreased recall of precautions;Decreased recall of biographical Information Safety Judgement: Decreased awareness of need for assistance;Decreased awareness of need for safety Problem Solving: Decreased awareness of errors Insights: Decreased awareness of deficits Initiation: Requires cues for all Sequencing: Requires cues for all Cognition Comment: acute encephalopathy Type of ROM/Therapeutic Exercise Type of ROM/Therapeutic Exercise: PROM Comment: AROM encouraged but pt not actively participating. Pt able to move her arms spontaneously but not on command. Pt repositioned in the bed with HOB raised for BUE ex. Exercises Shoulder Flexion: 10 reps with BUE Elbow Flexion: 10 reps with BUE Elbow Extension: 10 reps with BUE Grasp/Release: Pt did actively squeeze AUGUSTINE's hands with BUE with MAX cues. Plan Plan Times per week: 4 visits Times per day: Daily Current Treatment Recommendations: Strengthening, Balance Training, Endurance Training, Neuromuscular Re-education, Equipment Evaluation, Education, & procurement, Cognitive Reorientation, Cognitive/Perceptual Training, Self-Care / ADL, Safety Education & Training Plan Comment: Goals and POC were established in collaboration with patient. Goals Short term goals Time Frame for Short term goals: 5 visits Short term goal 1: Pt will complete bed mobility at MIN ASSIST in order to improve participation inADL routine. NA (dependent) Short term goal 2: Pt will gurinder >10 min of functional EOB sitting during ADLs. NA Short term goal 3: Pt will complete UB ADLs and grooming tasks at SUP. slow progress Short term goal 4: Pt will gurinder B UE ther exe to promote strength for ADLs and transfers. slow progress Short term goal 5: Pt will demonstrate improved orientation and ability to utilize call light to make needs known 100% of the time this admission. AUGUSTINE attempted to educate pt well control instructor button but pt not attending. Patient Goals Patient goals : improve ADL indep Therapy Time Individual Concurrent Group Co-treatment Time In 1255 Time Out 1308 Minutes 13 Timed Code Treatment Minutes: 12 Minutes(ther ex) ARTHUR Tierney * Kristen Burton, JIM - 10/17/2019 2:40 PM EDT Speech Language Pathology Facility/Department: [facility] TELEMETRY Dysphagia Treatment Note NAME: Charlie Nguyen : 1955 Patient Diagnosis(es): Patient Active Problem List Diagnosis Migraine Internal derangement of right knee Glioma (HCC) Hypertension Chronic nonintractable headache Intentional drug overdose (HCC) Drug overdose, multiple drugs, accidental or unintentional, initial encounter Acute respiratory failure with hypoxia (HCC) Unspecified mood (affective) disorder (HCC) Allergies: Allergies Allergen Reactions Macrobid [Nitrofurantoin Monohyd Macro] Hives Hydrocodone-Acetaminophen Other reaction(s): GI Upset Didn't do anything for her pain Keflex [Cephalexin] Anxiety 4 L nasal cannula-pt O2 was off when MAIL PROCESSING CLERK entered SpO2 was 87% and increased to 91-92% after replacement of Nasal cannula. Current Diet Level: Dental soft. Compensatory Techniques []Chin tuck []Single bolus [x]Alternate bites/ sips as needed [x] External Pacing []No straws []Small diameter straw []Liquid wash []Swallow x 2 with each bolus []Effortful Swallow [] [x]Position patient upright []Upright After Meal at least 30 minutes Pain:no complaints of pain. S: Flat affect. Pt slouched over to the right in her bed. O: Encourage po, assess tolerance and appropriate for advanced, trials, strengthening. A: Pt without continuous throat clearing. No recent Cxray. Last one indicated improved. WBC improving. Encouragement for oral intake, pt appear to prefer to sleep and/or demonstrates lack of initiation. Pt stated that I don't have MS, someone lied about that. MAIL PROCESSING CLERK only asked her if she was in her wheel chair all day, or only for transport. Pt denies any difficulty with walking in the past at this time. Pt is appropriate for advanced po if she is set up and food is cut up for her d/t poor initiation of this. Suggest continue dental soft diet for safety. Currently pt has sitter, however continue to require assist. Noted decreased endurance and pt would benefit from exercises program given her current status and poor positioning. [] Goal met [] Progressing as expected [] Progressing slower than expected [] Medical status inhibits participation [] Goals not addressed this session [] Goals revised this session [] Unable to show any progress towards functional goals [x] Progress towards functional goal is gradual / fair P: Add exercise program for endurance and self positioning. Recommend cog eval. Total Minutes: 21 minutes Kristen Burton M.A.CCC/MAIL PROCESSING CLERK Speech-Language Pathologist * Doris Brink, BOWLING PIN REFINISHER - 10/17/2019 9:39 AM EDT Physical Therapy [facility] [facility]E TELEMETRY Daily Treatment Note NAME: Charlie Nguyen : 1955 Date of Service: 10/17/2019 Discharge Recommendations: Subacute/Halfway Facility Assessment Assessment: Pt demonstrated an improvement in functional mobility with a decrease in assist needed to complete transitions but not safe to perform independently. Pt unable to follow and perform directions with ther ex without MAX cueing and guidance. Pt's conversation in not appropriate 80 % of thetime. Pt will benefit from continued attempts to improve active function and safety with mobility. REQUIRES PT FOLLOW UP: Yes Activity Tolerance Activity Tolerance: Patient limited by cognitive status;Patient limited by fatigue;Patient limited by endurance Patient Diagnosis(es): The primary encounter diagnosis was Intentional drug overdose, initial encounter ([facility]). Diagnoses of Acute hypoxemic respiratory failure ([facility]) and Leukocytosis, unspecified type were also pertinent to this visit. has a past medical history of Anxiety, Brain tumor ([facility]), Depression, GERD (gastroesophageal refluxdisease), Headache, Ischemic colitis ([facility]), and MS (multiple sclerosis) ([facility]). has a past surgical history that includes Hysterectomy; Tubal ligation; knee surgery (Right, 06/2016); and bronchoscopy (10/06/2019). Restrictions Restrictions/Precautions Restrictions/Precautions: Up as Tolerated, General Precautions, Fall Risk(HICU telemetry, catheter,FMS rectal tube, 3L of O2, high fall risk) Subjective General Chart Reviewed: Yes Family / Caregiver Present: No Subjective Subjective: PT's conversation is not pertinent to questions asked majority of time as well as pt will start to whisper for no reason. Cognition Cognition Overall Cognitive Status: Exceptions Arousal/Alertness: Inconsistent responses to stimuli Following Commands: Inconsistently follows commands Attention Span: Attends with cues to redirect;Difficulty attending to directions;Difficulty dividing attention Memory: Decreased long term care social worker memory;Decreased short term memory;Decreased recall of recent events;Decreased recall of precautions;Decreased recall of biographical Information Safety Judgement: Decreased awareness of need for assistance;Decreased awareness of need for safety Problem Solving: Decreased awareness of errors Insights: Decreased awareness of deficits Initiation: Requires cues for all Sequencing: Requires cues for all Objective Bed mobility Supine to Sit: Moderate assistance(of 1 for assist to guide LE's to edge and complete trunk elevation with pt initially making attempt to do herself and then required assist to complete) Sit to Supine: Minimal assistance;Moderate assistance;2 Person assistance(to guide trunk and elevate LE's onto bed. ) Scooting: Maximal assistance;2 Person assistance(with use of draw pad to scoot to HOB.) Balance Comments: Pt sat at edge of bed without support. pt would allow self to lean to the R but would self correct with cueing. Pt tended to rock posteriorly during exercises without balance loss, Pt sat at edge of bed for 10 minutes Exercises Hip Flexion: unable on R LE with beliveing she is doing with rocking. With AAROM performed on L LE for 15 reps Hip Abduction: 1 set / 15 reps in sitting B LE isometrically with cues to stay on task Knee Long Arc Quad: 1 set / 15 reps in sitting on L LE and unable to eleicit on R LE Ankle Pumps: 1 set / 20 reps in sitting B LE individually Hip Adduction: 1 set / 20 reps in sitting B LE isometrically with cues to stay on task Goals Short term goals Time Frame for Short term goals: 7 visits Short term goal 1: Bed mobility SBA x1(not met) Short term goal 2: Transfers with min assist x1(NA) Short term goal 3: Sitting balance >5 minutes with no loss of balance and no postural sway (partially met) Short term goal 4: Bed to chair or wheelchair transfer with min assist x1(NA) Short term goal 5: Improve BLE strength to 4-/5(not met) Short term goal 6: Propel wheelchair 50 feet x1 with BUE/BLE with SBA x1(NA) Patient Goals Patient goals : no goal stated Plan Plan Times per week: 5 visits Current Treatment Recommendations: (Cont ther ex and functional training/balance) Safety Devices Type of devices: All fall risk precautions in place, Call light within reach, Left in bed, Sitter present, Patient at risk for falls Therapy Time Individual Concurrent Group Co-treatment Time In 0900 Time Out 0925 Minutes 25 Timed Code Treatment Minutes: 23 Minutes(ther act and neuro) Doris Brink PTA * Ching Sethi, WAYS OPERATOR - SENIOR CONSUMER INSIGHTS CONSULTANT - 10/17/2019 9:02 AM EDT [facility] [place], Pulmonary Critical Care and Sleep Medicine [address] [place] [address] [id number] Patient - Charlie Nguyen, Age - 64 y.o. - 1955 Room Number - [id number] Consulting - Max Bob DO Primary Care Physician - Moreno Oates Date of Admission - 10/03/2019 7:34 AM Hospital Day - 14 Subjective/Events Past 24 hours/ROS Attempted to see and evaluate patient this morning. She appears to be upset by a previous visitor/ staff member in the room. Sitter at bedside attempted to explain to me that they just finished having a conversation. Patient told sitter to not tell me any details of the conversation they had together. She then told me get out of my room. I explained to her that I work with the pulmonary service and that I was coming in to check on her breathing. She said my breathing is and has been fine.Currently on 2 liters NC. All other systems reviewed Objective Vitals height is 5' 9 (1.753 m) and weight is 270 lb (122.5 kg). Her temporal temperature is 97.9 F (36.6C). Her blood pressure is 143/94 (abnormal) and her pulse is 104. Her respiration is 18 and oxygen saturation is 91%. O2 Flow Rate (L/min): 4 L/min I/O Intake/Output Summary (Last 24 hours) at 10/17/2019 0902 Last data filed at 10/16/2019 1307 Gross per 24 hour Intake 120 ml Output Net 120 ml No data found. Exam Limited exam as patient would not let me evaluate her at the bedside. General Appearance Awake, alert, oriented, in no acute distress HEENT - normocephalic, atraumatic, sclarea is anicteric, conjunctiva is pink, nasal mucosa is normal, no congestion, external ears are intact. Lungs Normal effort, no audible wheezing noted. On 2 liters NC. Cardiovascular - Regular rate and rhythm on the desktop manager. Abdomen - obese. Neurologic - Awake, alert, follows commands. Skin - No bruising or bleeding noted. Extremities - No clubbing, cyanosis, +2 pitting BLE edema Psychiatric: appropriate, oriented to person, place and time/date Meds metoprolol 50 mg Oral BID cloNIDine 0.1 mg Oral Once pantoprazole 40 mg Oral QAM AC [Held by provider] QUEtiapine 25 mg Oral BID sodium chloride flush 10 mL Intravenous 2 times per day enoxaparin 40 mg Subcutaneous Daily ipratropium-albuterol, racepinephrine HCl, sodium chloride nebulizer, iopamidol, sodium chloride flush, promethazine OR ondansetron, acetaminophen Labs CBC Recent Labs 10/16/19 0352 WBC 16.7* HGB 12.0 HCT 36.2 MCV 97.6 PLT 575* BMP: Recent Labs 10/16/19 035 NA 142 K 3.6 CL 107 CO2 24 BUN 24* CREATININE 0.53 GLUCOSE 105* ABG: Lab Results Component Value Date PH 7.42 10/05/2019 No results found for: IFIO2, MODE, SETTIDVOL, SETPEEP LIVER PROFILE Recent Labs 10/16/19351 AST 86* ALT 219* BILIDIR 0.0 BILITOT 0.8 ALKPHOS 131* INR No results found for: INR, PROTIME PTT No results found for: APTT Cultures Respiratory culture + MSSA Respiratory culture + Staph aureus and Corynebacterium striatum Urine antigens negative Blood cultures- NGTD COVID-19 negative Active Hospital Problem List Active Hospital Problems Diagnosis Date Noted Unspecified mood (affective) disorder ([facility]) [F39] Acute respiratory failure with hypoxia ([facility]) [J96.01] Intentional drug overdose ([facility]) [T50.902A] 10/03/2019 Drug overdose, multiple drugs, accidental or unintentional, initial encounter [T50.911A] 10/03/2019 Assessment and Plan Acute hypoxic respiratory failure s/p mechanical ventilation likely r/t aspiration - Extubated 10/11 - Continue supplemental O2 to maintain SpO2 92%. Wean off as patient tolerates. - If plans are to d/c home with [facility] will need home O2 evaluation. - BD therapy MSSA/ Corynebacterium pneumonia/ RLL atelectasis - s/p bronchoscopy on 10/06/19 - completed ABx course. - Diet per ST recommendations - COVID-19 negative Acute encephalopathy secondary to drug overdose (amitriptyline and Lyrica) - CT head negative - supportive care - improving Transaminitis - monitor LFT's, improving - as per PCP ? Intentional drug overdose/ Hx anxiety and depression - Plans for re evaluation from Psychiatry. Hx Multiple sclerosis/ debility -PT/OT. Wheelchair at baseline GI prophylaxis- PPI DVT prophylaxis- Lovenox SQ Code status- Limited Code. Okay for NIV. Palliative care on board. Patient is stable from pulmonary standpoint. Will sign off at this time, please feel free to contact our service for any further questions or changes in clinical status. If plans are to d/c home she will need O2 evaluation prior to discharge Case discussed with nurse and patient Questions and concerns addressed. * Scott Corona MD - 10/17/2019 7:22 AM EDT Hospitalist Progress Note 10/17/2019 7:23 AM [phone]: Please page me ([phone]) for patient care issues. [phone]: Please page [facility] night Hospitalist for any issues. Subjective: Admit Date: 10/03/2019 PCP: Moreno Oates Room#: [id number] Interval History: Pt seems to be playing with certain staff members. Sitter would state she was confused, but then look up at me and smile, and have a full conversation. Pt again very adamant about going home. Apologized for squeezing my hand yesterday. Denies CP, SOB, abdominal pain, N/V/D, fevers, or chills. DIET GENERAL; Dental Soft Dietary Nutrition Supplements: Low Calorie High Protein Supplement No data found. 24HR INTAKE/OUTPUT: Intake/Output Summary (Last 24 hours) at 10/17/2019 0723 Last data filed at 10/16/2019 1307 Gross per 24 hour Intake 180 ml Output Net 180 ml Past Medical History: Diagnosis Date Anxiety Brain tumor (HCC) 02/01/2015 Found small tumor, has appt with neurologist in May Depression GERD (gastroesophageal reflux disease) Headache Ischemic colitis (HCC) MS (multiple sclerosis) ([facility]) Medications: metoprolol 50 mg Oral BID cloNIDine 0.1 mg Oral Once pantoprazole 40 mg Oral QAM AC [Held by provider] QUEtiapine 25 mg Oral BID sodium chloride flush 10 mL Intravenous 2 times per day enoxaparin 40 mg Subcutaneous Daily LABS: CBC: Recent Labs 10/15/19 0516 10/16/19 0352 WBC 17.4* 16.7* RBC 3.88 3.71* HGB 12.2 12.0 HCT 38.5 36.2 MCV 99.0* 97.6 RDW 15.6* 15.3* PLT 654* 575* BMP: Recent Labs 10/15/19 0516 10/16/19 0352 NA 143 142 K 3.6 3.6 CL 109* 107 CO2 24 24 BUN 24* 24* CREATININE 0.56 0.53 GLUCOSE 117* 105* CALCIUM 8.2* 8.1* ANIONGAP 10 11 LIVER PROFILE: Recent Labs 10/15/19 0516 10/16/19 0352 AST 146* 86* ALT 289* 219* BILITOT 0.7 0.8 ALKPHOS 139* 131* LABALBU 3.3* 3.4* PROT 6.8 7.3 PT/INR: No results for input(s): PROTIME, INR in the last 72 hours. CARDIAC ENZYMES: No results for input(s): TROPONINI in the last 72 hours. Procalcitonin: Lab Results Component Value Date PROCAL 0.60 10/04/2019 Objective: Vitals: BP (!) 149/94 Pulse 102 Temp 99.5 F (37.5 C) (Temporal) Resp 16 Ht 5' 9 (1.753 m) Wt 270 lb (122.5 kg) SpO2 90% BMI 39.87 kg/m Pulse Ox: SpO2 Av.5 % Min: 90 % Max: 91 % Supplemental O2: O2 Flow Rate (L/min): 4 L/min General appearance: AAO x 3 today; Morbidly obese female HEENT: Normal cephalic, atraumatic without obvious deformity. Pupils equal, round, and reactive to light. Extra ocular muscles intact. Conjunctivae/corneas clear. Neck: Supple, with full range of motion. No jugular venous distention. Trachea midline. No lymphadenopathy. Respiratory: Scattered rhonchi bilaterally Cardiovascular: Tachycardic; Regular rhythm with normal S1/S2 without murmurs, rubs or gallops. Abdomen: Soft, non-tender, non-distended with normal bowel sounds. No rebound or guarding. Musculoskeletal: No clubbing, cyanosis or edema bilaterally. Full range of motion without deformity. Skin: Skin color, texture, turgor normal. No rashes or lesions. Neurologic: Neurovascularly intact without any focal sensory/motor deficits. Cranial nerves: II-XIIintact, grossly non-focal. Assessment 1. Acute hypoxic resp failure s/p extubation 10/11 - Likely 2/2 Aspiration; Wean oxygen as tolerated 2. Acute metabolic encephalopathy 2/2 drug overdose - Amitriptyline / Lyrica; Pt improved today; Monitor; Avoid SSRIs/ anti-depressants 3. MSSA/ Corynebacterium pneumonia s/p bronch 10/05 - Linezolid finished 4. Intentional vs unintentional drug OD - Psych to re-evaluate patient and capacity; Unclear timeframe for return visit 5. Transaminitis - Improved; Possibly 2/2 Linezolid; Monitor 6. Tachycardia - Consider restarting BB 7. HTN - Restart BB 8. Hypokalemia - Resolved 9. Multiple sclerosis 10. Morbid Obesity due to excess calories 11. Depression 12. GERD 13. COVID-19 negative Plan -Psych re-evaluation - Placement vs [facility] -palliative care following -am labs, replace lytes prn -increase activity/PT/OT -DVT prophylaxis: [x] Lovenox [] Heparin [] SCDs [x] Encourage ambulation [] Already on Anticoagulation Advance Directive: Limited Discharge plannin-48 hours pending return visit from Psychiatry Scott Corona MD Division of Hospitalist Medicine Inpatient Medical Services PAGER: [phone] * Danisha Clinton RN - 10/17/2019 4:51 AM EDT Patient refused blood work. Dr Haro notified. No further interventions at this time. * Danisha Clinton RN - 10/16/2019 9:07 PM EDT Patient refuses assessment of any kind, refuses all medication, refuses vital signs. Patient swearing at staff. Verbally hostile. Patient educated on risks of non-compliance to her health, patient rejected education and stated oh you think so to which this RN replied yes and she in turn stated nope and continued to refuse assessment. Dr Haro notified. * Soniya Syed RN - 10/16/2019 6:11 PM EDT Patient in and out of confusion today, more so confused. Telling stories about things that do not make sense. Spoke with patients daughter who states that Charlie has called her multiple times today not making sense. Continue to reorient patient throughout the day. Morning medications refused. Patient has been refusing turning/repositioning. * Angela Callejas PTA - 10/16/2019 12:10 PM EDT Physical Therapy Facility/Department: [facility] 2E TELEMETRY Daily Treatment Note NAME: Charlie Nguyen : 1955 Date of Service: 10/16/2019 Discharge Recommendations: Subacute/Halfway Facility Assessment Assessment: Pt has weak quad contraction on RLE and unable to to perform a SAQ. Pt would benefit from therapy to progress safe functional mobility REQUIRES PT FOLLOW UP: Yes Activity Tolerance Activity Tolerance: Patient limited by fatigue;Patient limited by endurance Patient Diagnosis(es): The primary encounter diagnosis was Intentional drug overdose, initial encounter ([facility]). Diagnoses of Acute hypoxemic respiratory failure (HCC) and Leukocytosis, unspecified type were also pertinent to this visit. has a past medical history of Anxiety, Brain tumor (HCC), Depression, GERD (gastroesophageal refluxdisease), Headache, Ischemic colitis (HCC), and MS (multiple sclerosis) ([facility]). has a past surgical history that includes Hysterectomy; Tubal ligation; knee surgery (Right, 06/2016); and bronchoscopy (10/06/2019). Restrictions Restrictions/Precautions Restrictions/Precautions: Up as Tolerated, General Precautions, Fall Risk(HICU telemetry, catheter,FMS rectal tube, 3L of O2, high fall risk) Subjective General Chart Reviewed: Yes Family / Caregiver Present: No Subjective Subjective: Pt agreeable to therapy /exercise. Pt has sitter in room. Pt also has anal catheter General Comment Comments: Ok per RN for therapy Pain Screening Patient Currently in Pain: Denies Vital Signs Patient Currently in Pain: Denies Objective Exercises Quad Sets: 2set/15rep supine Heelslides: 2set/10rep supine with assist Hip Abduction: 2set/10rep supine with assist Knee Short Arc Quad: 2set/15rep supine LLE Ankle Pumps: 1set/20rep supine Comments: Pt has weak quad contraction on RLE and unable to perform SAQ Goals Short term goals Time Frame for Short term goals: 7 visits Short term goal 1: Bed mobility SBA x1(NA) Short term goal 2: Transfers with min assist x1(NA) Short term goal 3: Sitting balance >5 minutes with no loss of balance and no postural sway (NA) Short term goal 4: Bed to chair or wheelchair transfer with min assist x1(NA) Short term goal 5: Improve BLE strength to 4-/5(not met) Short term goal 6: Propel wheelchair 50 feet x1 with BUE/BLE with SBA x1(NA) Patient Goals Patient goals : no goal stated Plan Plan Times per week: 6visits Current Treatment Recommendations: Strengthening, Functional Mobility Training, Transfer Training, ROM, Balance Training, Patient/Caregiver Education & Training, Safety Education & Training, Home Exercise Program, Wheelchair Mobility Training, Endurance Training, Positioning Safety Devices Type of devices: All fall risk precautions in place, Call light within reach, Left in bed, Sitter present Therapy Time Individual Concurrent Group Co-treatment Time In 1116 Time Out 1134 Minutes 18 Timed Code Treatment Minutes: 15 Minutes(exercise) Angela Callejas PTA * Negra Peter - 10/16/2019 11:08 AM EDT Pt. Refusing to be repositioned. Asked if she was uncomfortable or experiencing any pain and pt. Replied no. Did get pt. Fresh water and ice as requested. * Scott Corona MD - 10/16/2019 8:57 AM EDT Hospitalist Progress Note 10/16/2019 8:57 AM [phone]: Please page me ([phone]) for patient care issues. [phone]: Please page [facility] night Hospitalist for any issues. Subjective: Admit Date: 10/03/2019 PCP: Moreno Oates Room#: [id number] Interval History: Pt more verbal today. Repeatedly saying I'm going home and seemed upset when discussing repeat evaluation by psychiatry. Pt AAO x 3 but at times would request odd gestures, such as asking for my hand and then squeezing my favorite two fingers . Denies CP, SOB, abdominal pain, N/V/D, fevers, or chills. DIET GENERAL; Dental Soft Dietary Nutrition Supplements: Low Calorie High Protein Supplement Patient Vitals for the past 96 hrs (Last 3 readings): Weight 10/13/19 0524 270 lb (122.5 kg) 24HR INTAKE/OUTPUT: Intake/Output Summary (Last 24 hours) at 10/16/2019 0857 Last data filed at 10/16/2019 0809 Gross per 24 hour Intake 660 ml Output 575 ml Net 85 ml Past Medical History: Diagnosis Date Anxiety Brain tumor (HCC) 02/01/2015 Found small tumor, has appt with neurologist in May GERD (gastroesophageal reflux disease) Headache Ischemic colitis (HCC) MS (multiple sclerosis) ([facility]CC) Medications: linezolid 600 mg Oral 2 times per day pantoprazole 40 mg Oral QAM AC [Held by provider] QUEtiapine 25 mg Oral BID sodium chloride flush 10 mL Intravenous 2 times per day enoxaparin 40 mg Subcutaneous Daily LABS: CBC: Recent Labs 10/14/1942510/15/19 0516 10/16/19 0352 WBC 19.8* 17.4* 16.7* RBC 3.86 3.88 3.71* HGB 12.2 12.2 12.0 HCT 37.4 38.5 36.2 MCV 96.9 99.0* 97.6 RDW 15.5* 15.6* 15.3* PLT 669* 654* 575* BMP: Recent Labs 10/14/1942510/15/19 0516 10/16/19 0352 NA 141 143 142 K 3.1* 3.6 3.6 CL 105 109* 107 CO2 27 24 24 BUN 22* 24* 24* CREATININE 0.68 0.56 0.53 GLUCOSE 106* 117* 105* CALCIUM 8.2* 8.2* 8.1* ANIONGAP 9 10 11 LIVER PROFILE: Recent Labs 10/14/1942510/15/19 0516 10/16/19 0352 AST 141* 146* 86* ALT 221* 289* 219* BILITOT 0.8 0.7 0.8 ALKPHOS 155* 139* 131* LABALBU 3.2* 3.3* 3.4* PROT 7.0 6.8 7.3 PT/INR: No results for input(s): PROTIME, INR in the last 72 hours. CARDIAC ENZYMES: No results for input(s): TROPONINI in the last 72 hours. Procalcitonin: Lab Results Component Value Date PROCAL 0.60 10/04/2019 Objective: Vitals: BP (!) 156/88 Pulse 100 Temp 98.4 F (36.9 C) (Temporal) Resp 22 Ht 5' 9 (1.753 m) Wt 270 lb (122.5 kg) SpO2 92% BMI 39.87 kg/m Pulse Ox: SpO2 Av.7 % Min: 92 % Max: 94 % Supplemental O2: O2 Flow Rate (L/min): 3 L/min General appearance: AAO x 3 today; Morbidly obese female HEENT: Normal cephalic, atraumatic without obvious deformity. Pupils equal, round, and reactive to light. Extra ocular muscles intact. Conjunctivae/corneas clear. Neck: Supple, with full range of motion. No jugular venous distention. Trachea midline. No lymphadenopathy. Respiratory: Scattered rhonchi bilaterally Cardiovascular: Tachycardic; Regular rhythm with normal S1/S2 without murmurs, rubs or gallops. Abdomen: Soft, non-tender, non-distended with normal bowel sounds. No rebound or guarding. Musculoskeletal: No clubbing, cyanosis or edema bilaterally. Full range of motion without deformity. Skin: Skin color, texture, turgor normal. No rashes or lesions. Neurologic: Neurovascularly intact without any focal sensory/motor deficits. Cranial nerves: II-XIIintact, grossly non-focal. Assessment 1. Acute hypoxic resp failure s/p extubation 10/11 - Likely 2/2 Aspiration; Wean oxygen as tolerated 2. Acute metabolic encephalopathy 2/2 drug overdose - Amitriptyline / Lyrica; Pt improved today; Monitor; Avoid SSRIs/ anti-depressants 3. MSSA/ Corynebacterium pneumonia s/p bronch 10/05 - Linezolid 4. Intentional vs unintentional drug OD - Psych to re-evaluate patient and capacity; Unclear timeframe for return visit 5. Transaminitis - Improved; Possibly 2/2 Linezolid; Monitor 6. Tachycardia - Consider restarting BB 7. HTN - Restart BB 8. Hypokalemia - Resolved 9. Multiple sclerosis 10. Morbid Obesity due to excess calories 11. Depression 12. GERD 13. COVID-19 negative Plan -Psych re-evaluation - Placement -palliative care following -am labs, replace lytes prn -increase activity/PT/OT -DVT prophylaxis: [x] Lovenox [] Heparin [] SCDs [x] Encourage ambulation [] Already on Anticoagulation Advance Directive: Limited Discharge plannin-48 hours Scott Corona MD Division of Hospitalist Medicine Inpatient Medical Services PAGER: [phone] * Scott Corona MD - 10/15/2019 7:39 AM EDT Hospitalist Progress Note 10/15/2019 7:39 AM [phone]: Please page me ([phone]) for patient care issues. [phone]: Please page [facility] night Hospitalist for any issues. Subjective: Admit Date: 10/03/2019 PCP: Moreno Oates Room#: [id number]/2581 Interval History: Pt more somnolent today. No Seroquel given in last 48 hours. Per sitter and nursing, had been sleeping most of the morning. Able to be aroused but less responsive than day prior. DIET GENERAL; Dental Soft Dietary Nutrition Supplements: Low Calorie High Protein Supplement Patient Vitals for the past 96 hrs (Last 3 readings): Weight 10/13/19 0524 270 lb (122.5 kg) 24HR INTAKE/OUTPUT: Intake/Output Summary (Last 24 hours) at 10/15/2019 0739 Last data filed at 10/15/2019 0355 Gross per 24 hour Intake Output 550 ml Net -550 ml Past Medical History: Diagnosis Date Anxiety Brain tumor (HCC) 02/01/2015 Found small tumor, has appt with neurologist in May Depression GERD (gastroesophageal reflux disease) Headache Ischemic colitis (HCC) MS (multiple sclerosis) (HCC) Medications: linezolid 600 mg Oral 2 times per day pantoprazole 40 mg Oral QAM AC QUEtiapine 25 mg Oral BID sodium chloride flush 10 mL Intravenous 2 times per day enoxaparin 40 mg Subcutaneous Daily LABS: CBC: Recent Labs 10/13/1932610/14/1942510/15/19 0516 WBC 15.9* 19.8* 17.4* RBC 3.78* 3.86 3.88 HGB 11.9 12.2 12.2 HCT 36.1 37.4 38.5 MCV 95.7 96.9 99.0* RDW 14.7* 15.5* 15.6* PLT 668* 669* 654* BMP: Recent Labs 10/13/1932610/13/19 0942 10/14/1942510/15/19 0516 NA 142 -- 141 143 K 2.8* 3.4* 3.1* 3.6 CL 105 -- 105 109* CO2 28 -- 27 24 BUN 15 -- 22* 24* CREATININE 0.52 -- 0.68 0.56 GLUCOSE 110* -- 106* 117* CALCIUM 8.2* -- 8.2* 8.2* ANIONGAP 9 -- 9 10 LIVER PROFILE: Recent Labs 10/13/1932610/14/1942510/15/19 0516 AST 118* 141* 146* ALT 122* 221* 289* BILITOT 0.9 0.8 0.7 ALKPHOS 174* 155* 139* LABALBU 3.4* 3.2* 3.3* PROT 7.2 7.0 6.8 PT/INR: No results for input(s): PROTIME, INR in the last 72 hours. CARDIAC ENZYMES: No results for input(s): TROPONINI in the last 72 hours. Procalcitonin: Lab Results Component Value Date PROCAL 0.60 10/04/2019 Objective: Vitals: BP 112/76 Pulse 97 Temp 98.6 F (37 C) (Temporal) Resp 24 Ht 5' 9 (1.753 m) Wt 270 lb (122.5 kg) SpO2 93% BMI 39.87 kg/m Pulse Ox: SpO2 Av.1 % Min: 92 % Max: 100 % Supplemental O2: O2 Flow Rate (L/min): 3 L/min General appearance: Pt would look at you when stating her name but no verbal response HEENT: Normal cephalic, atraumatic without obvious deformity. Pupils equal, round, and reactive to light. Extra ocular muscles intact. Conjunctivae/corneas clear. Neck: Supple, with full range of motion. No jugular venous distention. Trachea midline. No lymphadenopathy. Respiratory: Scattered rhonchi bilaterally Cardiovascular: Regular rate and rhythm with normal S1/S2 without murmurs, rubs or gallops. Abdomen: Soft, non-tender, non-distended with normal bowel sounds. No rebound or guarding. Musculoskeletal: No clubbing, cyanosis or edema bilaterally. Full range of motion without deformity. Skin: Skin color, texture, turgor normal. No rashes or lesions. Neurologic: Neurovascularly intact without any focal sensory/motor deficits. Cranial nerves: II-XIIintact, grossly non-focal. Assessment 1. Acute hypoxic resp failure s/p extubation 10/11 - Likely 2/2 Aspiration; Wean oxygen as tolerated 2. Acute metabolic encephalopathy 2/2 drug overdose - Amitriptyline / Lyrica; Pt seems more somnolent today; Monitor; Avoid SSRIs/ anti-depressants 3. MSSA/ Corynebacterium pneumonia s/p bronch 10/05 - Linezolid 4. Intentional vs unintentional drug OD - Psych to re-evaluate patient and capacity; Unclear timeframe for return visit 5. Transaminitis - Worsening; Possibly 2/2 Linezolid; Monitor 6. Hypokalemia - Resolved 7. Multiple sclerosis 8. Morbid Obesity due to excess calories 9. Depression 10. GERD 11. COVID-19 negative Plan -Psych re-evaluation - Placement -palliative care following -am labs, replace lytes prn -increase activity/PT/OT -DVT prophylaxis: [x] Lovenox [] Heparin [] SCDs [x] Encourage ambulation [] Already on Anticoagulation Advance Directive: Limited Discharge planning: TBD Scott Corona MD Division of Hospitalist Medicine Inpatient Medical Services PAGER: [phone] * Shaheen Man DO - 10/14/2019 4:46 PM EDT Palliative Care Progress Note Chief Complaint: Charlie Nguyen is a 64 y.o. female with chief complaint of altered mental status. Assessment/Plan Active Hospital Problems Diagnosis Date Noted Unspecified mood (affective) disorder ([facility]) [F39] Acute respiratory failure with hypoxia ([facility]) [J96.01] Intentional drug overdose ([facility]) [T50.732A] 10/03/2019 Drug overdose, multiple drugs, accidental or unintentional, initial encounter [T50.646Y] 10/03/2019 Goals of care -patient appears to retain capacity for medical decision-making -surrogate decision-maker is legally her ( 5-6 years), Brayden Nguyen ([phone]). She has 2 living adult children (Vicente and rAt) who are involved, but are NOT legally decision-makers. -see note 10/13/19 Acute respiratory failure with hypoxia -2/2 encephalopathy/drug overdose/pneumonia -SARS-CoV-2 negative -intubated 10/03/19-10/09/19, failed HFNC/NIV, reintubated 10/09/19-10/12/19 -weaned oxygen off while in room and SpO2 remained at 99-100% Acute metabolic encephalopathy -worsened today -less interactive -unclear if metabolic or behavioral -appreciate psychiatry input on capacity for disposition planning. Daughter reports that home condition is deplorable. Patient is a max assist for ALL ADLs and she insists on going home. MSSA pneumonia -s/p bronch 10/06/19 due to copious secretions -IV abx per primary Drug overdose -psych following Depression/anxiety -longstanding issue per family -see Dr Celestin in [place] -psych following Multiple sclerosis/debility -follows with the [facility] as outpatient -uses wheelchair at baseline -outpatient records on chart from 2014, but doesn't give picture of terminal illness Palliative care encounter -DNRCCA/DNI->ordered as limited code -goals of care established -social work and RN CM discharge planning -will follow peripherally Greater than 51% of time spent, total 25 minutes in counseling and coordination of care at the bedside regarding Goals of Care and See Above Discharge planning: to be determined Patient meets criteria for general inpatient hospice care including the following: N/A- Palliative Care Patient Referrals to: none today Discussed patient and the plan of care with the other IDT membersof Palliative Care, and with Patient and Floor Nurse Subjective: Subjective/Events 64 y.o. female who presented with altered mental status. Admitted to ICU for respiratory failure requiring intubation due to encephalopathy from drug overdose. Consultation requested for Symptom management and Family support. 0 ER visits and 0 hospitalizations in the last 12 months. Interval history -no overnight events -somnolent, very slow to respond -denies pain, fever, chills, shortness of breath -+cough, tolerating PO Goals of care:Improve or Maintain Function/Quality of Life, Remain at Home and Preserve [place]/Autonomy/Control Advance Directives: limited code- no CPR or intubation, okay for NIV Surrogate: Spouse Prognosis: unknown Spiritualassessment: No spiritual distress identified Bereavement and grief: To Be Determined ROS: See palliative care ROS/ESAS below; see HPI Review of Systems Social history: status: no Marital status: , 5-6 years Children: 3 children (1 daughter, 1 living son, 1 living daughter) Living status: alone Work history: Family Meeting: Participants:No Family Meeting Held Today Family meeting was held to discuss: Objective: Physical Exam BP 118/76 Pulse 98 Temp 98.6 F (37 C) (Temporal) Resp 24 Ht 5' 9 (1.753 m) Wt 270 lb (122.5 kg) SpO2 100% BMI 39.87 kg/m Physical Exam Vitals signs reviewed. Constitutional: General: She is not in acute distress. Appearance: She is not diaphoretic. Comments: drowsy HENT: Head: Normocephalic and atraumatic. Nose: Comments: Nasal cannula Eyes: General: Right eye: No discharge. Left eye: No discharge. Neck: Vascular: No JVD. Pulmonary: Effort: Pulmonary effort is normal. No respiratory distress. Breath sounds: No stridor. Musculoskeletal: General: No deformity (b/l LEs). Skin: General: Skin is warm and dry. Neurological: Mental Status: She is oriented to person, place, and time. Psychiatric: Comments: Slow response to questions, appears flat and depressed [place] Symptom Assessment Score [place] Score Pain Score 0 Tiredness Score 5 Nausea Score 0 Depression Score 7 Anxiety Score 0 Drowsiness Score 0 Anorexia Score (0= eating well, 10= not eating) 4 Wellbeing Score (10= worst sense of well-being) 5 Constipation 0 Dyspnea Score (0= no shortness of breath) 0 Assessed by: provider. CurrentMedications: Inpatient medications reviewed: yes 24 Hour PRN Meds: no PRN medications in 24 hours Results/Verification of Data Review Objective data reviewed: labs, images, records, medication use, vitals and chart Data in Support of Terminal Illness: Charlie Nguyen is a 64 y.o. female who was seen for [id number] on 10/10/19 who is hospice appropriate with an expected prognosis of 6 months or less due to the following: Not applicable Write hospice narrative \ * Kristen Burton, JIM - 10/14/2019 1:28 PM EDT Speech Language Pathology Facility/Department: [facility] Dysphagia Treatment Note NAME: Charlie Nguyen : 1955 Patient Diagnosis(es): Patient Active Problem List Diagnosis Migraine Internal derangement of right knee Glioma (HCC) Hypertension Chronic nonintractable headache Intentional drug overdose (HCC) Drug overdose, multiple drugs, accidental or unintentional, initial encounter Acute respiratory failure with hypoxia (HCC) Unspecified mood (affective) disorder (HCC) Allergies: Allergies Allergen Reactions Macrobid [Nitrofurantoin Monohyd Macro] Hives Hydrocodone-Acetaminophen Other reaction(s): GI Upset Didn't do anything for her pain Keflex [Cephalexin] Anxiety O2 Device: Nasal cannula Liters of Oxygen: 3 L Current Diet Level: Dental soft Compensatory Techniques []Chin tuck [x]Single bolus []Alternate bites/ sips [] External Pacing []No straws []Small diameter straw [x]Liquid wash every few bites to assist with oral clearance. []Swallow x 2 with each bolus []Effortful Swallow [] [x]Position patient upright [x]Upright After Meal at least 30 minutes Pain:no specific complaints. S: Do I have something on? They don't need to make me Omar Vishnu. Pt was unable to elaborate on this comment. Did inform pt that she had a catheter and rectal tube in place. O: Assess appropriateness to advance to regular diet. A: pt remains somnolent. She has some complaint of hear burn this am. Pt with more apparent left facial weakness as she becomes more tired. Pt is not initiating any activity, not interested self feeding or moving without significant amount of encouragement. Pt accepted 1/2 piece of [place] toast, 6 b ites of cottage cheese, 4 bites of eggs, 2 bites of pudding, multiple drinks of mild and accepted only 1 drink of ensure- that tastes funny. Pt was able to independently move head right to left to ensure range of motion, decreased lifting head off the bed for chin push/shakier like exercises. Only slight throat clearing audible x1 this date. Improved from previous date. [] Goal met [] Progressing as expected [x] Progressing slower than expected-pt's barrier is level of alertness/somnolence-Medication related?? [] Medical status inhibits participation [] Goals not addressed this session [] Goals revised this session [] Unable to show any progress towards functional goals [] Progress towards functional goal is gradual / fair P: Continue POC with consideration for MBS due to throat clearing, c/o reflux. Recommend not layingbed flat at least 60 minutes after eating. (recline slightly) Total Minutes: 30minutes Kristen Burton M.A.CCC/MAIL PROCESSING CLERK Speech-Language Pathologist * Max Bob, - 10/14/2019 12:08 PM EDT Hospitalist Progress Note 10/14/2019 12:08 PM [phone]: Please page me ([phone]) for patient care issues. [phone]: Please page [facility] night Hospitalist for any issues. Subjective: Admit Date: 10/03/2019 PCP: Moreno Oates Room#: [id number] Interval History: Patient transferred out of ICU onto hospitalist service. Denies chest pain, sob, abdominal pain, nausea, vomiting, diarrhea, constipation, fevers, or chills. DIET GENERAL; Dental Soft Dietary Nutrition Supplements: Low Calorie High Protein Supplement Patient Vitals for the past 96 hrs (Last 3 readings): Weight 10/13/19 0524 270 lb (122.5 kg) 24HR INTAKE/OUTPUT: Intake/Output Summary (Last 24 hours) at 10/14/2019 1208 Last data filed at 10/14/2019 0539 Gross per 24 hour Intake 220 ml Output 475 ml Net -255 ml Past Medical History: Diagnosis Date Anxiety Brain tumor (HCC) 02/01/2015 Found small tumor, has appt with neurologist in May GERD (gastroesophageal reflux disease) Headache Ischemic colitis (HCC) MS (multiple sclerosis) (HCC) Medications: linezolid 600 mg Oral 2 times per day pantoprazole 40 mg Oral QAM AC QUEtiapine 25 mg Oral BID sodium chloride flush 10 mL Intravenous 2 times per day enoxaparin 40 mg Subcutaneous Daily LABS: CBC: Recent Labs 10/12/1940710/13/1932610/14/19 0426 WBC 9.4 15.9* 19.8* RBC 3.36* 3.78* 3.86 HGB 10.7* 11.9 12.2 HCT 32.7* 36.1 37.4 MCV 97.2 95.7 96.9 RDW 15.2* 14.7* 15.5* PLT 571* 668* 669* BMP: Recent Labs 10/12/1940710/13/1932610/13/19 0942 10/14/19 0426 NA 140 142 -- 141 K 3.7 2.8* 3.4* 3.1* CL 103 105 -- 105 CO2 29 28 -- 27 BUN 21* 15 -- 22* CREATININE 0.48* 0.52 -- 0.68 GLUCOSE 168* 110* -- 106* CALCIUM 8.0* 8.2* -- 8.2* ANIONGAP 8 9 -- 9 LIVER PROFILE: Recent Labs 10/12/1940710/13/1932610/14/19 0426 AST 69* 118* 141* ALT 61* 122* 221* BILITOT 0.5 0.9 0.8 ALKPHOS 157* 174* 155* LABALBU 3.3* 3.4* 3.2* PROT 6.9 7.2 7.0 PT/INR: No results for input(s): PROTIME, INR in the last 72 hours. CARDIAC ENZYMES: No results for input(s): TROPONINI in the last 72 hours. Procalcitonin: Lab Results Component Value Date PROCAL 0.60 10/04/2019 Objective: Vitals: BP 118/76 Pulse 98 Temp 98.6 F (37 C) (Temporal) Resp 24 Ht 5' 9 (1.753 m) Wt 270 lb (122.5 kg) SpO2 100% BMI 39.87 kg/m Pulse Ox: SpO2 Av.6 % Min: 92 % Max: 100 % Supplemental O2: O2 Flow Rate (L/min): 3 L/min General appearance: No apparent distress, appears stated age and cooperative with exam HEENT: Normal cephalic, atraumatic without obvious deformity. Pupils equal, round, and reactive to light. Extra ocular muscles intact. Conjunctivae/corneas clear. Neck: Supple, with full range of motion. No jugular venous distention. Trachea midline. No lymphadenopathy. Respiratory: Scattered rhonchi bilaterally Cardiovascular: Regular rate and rhythm with normal S1/S2 without murmurs, rubs or gallops. Abdomen: Soft, non-tender, non-distended with normal bowel sounds. No rebound or guarding. Musculoskeletal: No clubbing, cyanosis or edema bilaterally. Full range of motion without deformity. Skin: Skin color, texture, turgor normal. No rashes or lesions. Neurologic: Neurovascularly intact without any focal sensory/motor deficits. Cranial nerves: II-XIIintact, grossly non-focal. Assessment 1. Acute hypoxic resp failure s/p extubation 10/11 2. Acute metabolic encephalopathy 3. MSSA/ Corynebacterium pneumonia s/p bronch 10/05 4. Intentional vs unintentional drug OD 5. Transaminitis 6. Multiple sclerosis 7. Hypokalemia 8. Obesity 9. Depression 10. GERD 11. COVID-19 negative Plan -continue IV abx/oxygen/duonebs/pulm following -psychiatry following, needs re-evaluation -palliative care following -am labs, replace lytes prn -increase activity/PT/OT -DVT prophylaxis: [x] Lovenox [] Heparin [] SCDs [x] Encourage ambulation [] Already on Anticoagulation Advance Directive: Limited Discharge planning: TBSusie Bob DO Division of Hospitalist Medicine Inpatient Medical Services PAGER: [phone] * Kristen Burton, MAIL PROCESSING CLERK - 10/14/2019 11:35 AM EDT Speech Language Pathology Attempted at 10:30. Pt continue very flat with limited participation. Will attempt again at later time. Kristen Burton MA, CCC-MAIL PROCESSING CLERK Speech-Language Pathologist * Lias Townsend, RD, LD - 10/14/2019 10:01 AM EDT Nutrition Assessment Type and Reason for Visit: Reassess Nutrition Recommendations: 1. Continue with Dental soft diet. MAIL PROCESSING CLERK following to ensure safe swallowing. 2. Initiate Ensure high protein BID per MNT protocol. Ensure High Protein provides 160 kcals, 16 g protein per serving. 3. Please document pt's PO intakes via flowsheet to accurately assess PO intake adequacy. 4. Monitor intakes, wts, and labs. RD will follow. Nutrition Assessment: Unable to reach pt by phone; pt not answering. Intakes appear to be inadequate per documentation (1-25%). PT transferred out from ICU and extubated at this time. MAIL PROCESSING CLERK is following pt on Dental soft diet. Malnutrition Assessment: Malnutrition Status: At risk for malnutrition Context: Acute illness or injury Findings of the 6 clinical characteristics of malnutrition (Minimum of 2 out of 6 clinical characteristics is required to make the diagnosis of moderate or severe Protein Calorie Malnutrition based on AND/ASPEN Guidelines): 1. Energy Intake-Less than or equal to 50% of estimated energy requirement, Greater than or equal to 5 days(~ 6 days) 2. Weight Loss- , 3. Fat Loss-Unable to assess, 4. Muscle Loss-Unable to assess, 5. Fluid Accumulation-Moderate to severe fluid accumulation, Extremities(+2-2 pitting all ext) 6. Director Medical Science Strength-Not measured Nutrition Risk Level: High Nutrient Needs: Estimated Daily Total Kcal: 1718-3006 kcals(25-28) Estimated Daily Protein (g): 66-79(1-1.2) Estimated Daily Total Fluid (ml/day): 2000 ml/day or per MD Nutrition Diagnosis: Problem: Inadequate oral intake Etiology: related to Insufficient energy/nutrient consumption, Cognitive or neurological impairment ? Signs and symptoms: as evidenced by Intake 0-25% Objective Information: Nutrition-Focused Physical Findings: +2 pitting BLE edema; K+ 3.1, BUN 22, glucose 106, 110, 168, 144, WBC 19.8 Wound Type: Stage II([place] area) Current Nutrition Therapies: Oral Diet Orders: Dental Soft Oral Diet intake: 1-25% Oral Nutrition Supplement (ONS) Orders: None ONS intake: Unable to assess Anthropometric Measures: Ht: 5' 9 (175.3 cm) Current Body Wt: 270 lb (122.5 kg) Admission Body Wt: 260 lb (117.9 kg) % Weight Change: , was 150 lbs in 2015; 10/2018 was 240 lbs. incr 30 lbs in 11 mo? [place] Body Wt: 145 lb (65.8 kg), % [place] Body 186 BMI Classification: BMI 35.0 - 39.9 Obese Class II(39.9) Nutrition Interventions: Continue current diet, Start ONS Continued Inpatient Monitoring, Speech Therapy Nutrition Evaluation: Evaluation: Goals set Goals: Pt will receive/tolerate adequate nutrition with safe swallow; Intakes will be >75% of meals/supplements Monitoring: Meal Intake, Supplement Intake, Diet Tolerance, Skin Integrity, Wound Healing, I&O,Weight, Pertinent Labs, Chewing/Swallowing, Monitor Bowel Function, Mental Status/Confusion Contact Number: [phone] * Ching Sethi APRN - SENIOR CONSUMER INSIGHTS CONSULTANT - 10/14/2019 9:11 AM EDT [facility], Pulmonary Critical Care and Sleep Medicine [address] [place] [id number] Patient - Charlie Nguyen, Age - 64 y.o. - 1955 Room Number - [id number] Consulting - Max Bob DO Primary Care Physician - Moreno Oates Date of Admission - 10/03/2019 7:34 AM Hospital Day - 11 Subjective/Events Past 24 hours/ROS Patient awake lying in bed. client account assistant at bedside checking vitals. 96% on 3 liters NC. She shakes her head no when I asked if she was having any chest pain, shortness of breath or cough. Limited verbal interaction with patient this morning. All other systems reviewed Objective Vitals height is 5' 9 (1.753 m) and weight is 270 lb (122.5 kg). Her temporal temperature is 99.4 F (37.4C). Her blood pressure is 121/73 and her pulse is 105. Her respiration is 18 and oxygen saturation is 96%. O2 Flow Rate (L/min): 3 L/min I/O Intake/Output Summary (Last 24 hours) at 10/14/2019 0911 Last data filed at 10/14/2019 0539 Gross per 24 hour Intake 220 ml Output 475 ml Net -255 ml Patient Vitals for the past 96 hrs (Last 3 readings): Weight 10/13/19 0524 270 lb (122.5 kg) Exam General Appearance Awake, alert, lying in bed. On 3 liters NC. No acute respiratory distress. HEENT - normocephalic, atraumatic, sclarea is anicteric, conjunctiva is pink, nasal mucosa is normal, no congestion, external ears are intact. Neck - Supple, trachea midline Lymph nodes- no cervical, clavicular, or posterior auricular lymphadenopathy Lungs Normal effort, diminished breath sounds bilaterally, no wheezing noted. Few rales Cardiovascular - Heart sounds are normal. Regular rate and rhythm Abdomen - Soft, nontender, nondistended, no masses or organomegaly. Morbidly obese. Neurologic - Awake, alert, follows commands. Cranial nerves II-XII are intact, There are no focal motor deficits grossly Skin - No bruising or bleeding, good turgor, normal warmth Extremities - No clubbing, cyanosis. +1 BLE edema Peripheral pulses- present bilaterally and symmetric Psychiatric: awake and alert. Meds linezolid 600 mg Oral 2 times per day pantoprazole 40 mg Oral QAM AC QUEtiapine 25 mg Oral BID sodium chloride flush 10 mL Intravenous 2 times per day enoxaparin 40 mg Subcutaneous Daily ipratropium-albuterol, racepinephrine HCl, sodium chloride nebulizer, potassium chloride, iopamidol, magnesium sulfate, sodium chloride flush, promethazine OR ondansetron, acetaminophen Labs CBC Recent Labs 10/14/19425 WBC 19.8* HGB 12.2 HCT 37.4 MCV 96.9 PLT 669* BMP: Recent Labs 10/14/19425 NA 141 K 3.1* CL 105 CO2 27 BUN 22* CREATININE 0.68 GLUCOSE 106* MG 1.7 PHOS 3.5 ABG: Lab Results Component Value Date PH 7.42 10/05/2019 No results found for: IFIO2, MODE, SETTIDVOL, SETPEEP LIVER PROFILE Recent Labs 10/14/19 0426 AST 141* ALT 221* BILITOT 0.8 ALKPHOS 155* INR No results found for: INR, PROTIME PTT No results found for: APTT Cultures Respiratory culture + MSSA Respiratory culture + Staph aureus and Corynebacterium striatum Urine antigens negative Blood cultures- NGTD COVID-19 negative Radiology CXR 10/14/19 report pending Active Hospital Problem List Active Hospital Problems Diagnosis Date Noted Unspecified mood (affective) disorder (HCC) [F39] Acute respiratory failure with hypoxia ([facility]) [J96.01] Intentional drug overdose (HCC) [T50.902A] 10/03/2019 Drug overdose, multiple drugs, accidental or unintentional, initial encounter [T50.911A] 10/03/2019 Assessment and Plan Acute hypoxic respiratory failure s/p mechanical ventilation likely r/t aspiration - Extubated 10/11 - Continue supplemental O2 to maintain SpO2 92%. On 3 liters NC - monitor CXR - BD therapy MSSA/ Corynebacterium pneumonia/ RLL atelectasis - s/p bronchoscopy on 10/06/19 - f/u CXR today - Changed to po Linezolid yesterday per ID stewardship recommendations - Diet per ST recommendations - COVID-19 negative Acute encephalopathy secondary to drug overdose (amitriptyline and Lyrica) - CT head negative - supportive care - improving Transaminitis - monitor LFT's - as per PCP ? Intentional drug overdose/ Hx anxiety and depression - Psychiatry following. Needs f/u to determine if need for inpatient psych treatment Hx Multiple sclerosis/ debility -PT/OT. Wheelchair at baseline Hypokalemia - replacement protocols - monitor BMP GI prophylaxis- PPI DVT prophylaxis- Lovenox SQ Code status- Limited Code. Okay for NIV. Palliative care on board. Case discussed with nurse and patient Questions and concerns addressed. Associated attestation - Des Romero MD - 10/14/2019 10:50 AM EDT I have evaluated the patient and reviewed the case with the FURNITURE FINISHER. I agree with the current plan of care including the workup, evaluation, management, and diagnosis. Care plan has been discussed. I independently examined and evaluated the patient. The documentation below has been reviewed and edited as needed to reflect the findings of my evaluation. * Negra Peter - 10/13/2019 6:57 PM EDT Was able to reposition pt. Pt. Currently sitting up in bed with her dinner tray in front of her. Pt. States she is still picking at her tray. Currently watching TV. Bed pads changed under pt. Pt. Looks and says she is comfortable. * Negra Peter - 10/13/2019 5:06 PM EDT Offered to reposition pt. Pt. Said no, I am just fine the way I am. I asked if she had any discomfort or pain, the pt replied No, I just want to watch TV' * Kristen Burton SLP - 10/13/2019 4:11 PM EDT Speech Language Pathology Facility/Department: [facility] Dysphagia Treatment Note NAME: Charlie Nguyen : 1955 Patient Diagnosis(es): Patient Active Problem List Diagnosis Migraine Internal derangement of right knee Glioma (HCC) Hypertension Chronic nonintractable headache Intentional drug overdose (HCC) Drug overdose, multiple drugs, accidental or unintentional, initial encounter Acute respiratory failure with hypoxia (HCC) Unspecified mood (affective) disorder (HCC) Allergies: Allergies Allergen Reactions Macrobid [Nitrofurantoin Monohyd Macro] Hives Hydrocodone-Acetaminophen Other reaction(s): GI Upset Didn't do anything for her pain Keflex [Cephalexin] Anxiety O2 Device: Nasal cannula Liters of Oxygen: 4 L Current Diet Level: Dental soft Compensatory Techniques []Chin tuck []Single bolus [x]Alternate bites/ sips [x] External Pacing []No straws []Small diameter straw []Liquid wash []Swallow x 2 with each bolus []Effortful Swallow [] [x]Position patient upright [x]Upright After Meal at least 60 minutes Pain:No complaints. S: Pt is rather somnolent. Per sitter she deferred po this am with complaint of 'heart burn O: Assess tolerance of recommended diet. A: Pt was agreeable to pudding only at this time. She did indicate that she took 40mg of omeprazoleat home. She is receiving Protonix 40 in am. Pt did take at 10:11 this date. Occasional throat clearing after bites of pudding. Pt was unable to clearly state where she had sensation of same. She didsay that her doctor thought that she refluxes into her lungs (past situation) no hisory in Epic re:esophagram, EGD, MBS. Will continue to monitor. Pt may be appropriate for OP testing if deficits persist. ENT consult 10/11-no vocal cord paralysis or lesion. ENT noted come contact ulceration to vocal folds posteriorly consistent with recent intubation. Did not lay flat after eating pudding and she was agreeable for me to order a food tray. Pt did complete laryngeal ROM, and head lift to ensure ability to control, self feeding with some verbal cues and tactile prompts to initially get spoon to her mouth. Slower rate. Min cues to initiate swallow as pt continue to demonstrate decreased sustained attention to task. [] Goal met [] Progressing as expected [] Progressing slower than expected [] Medical status inhibits participation [] Goals not addressed this session [] Goals revised this session [] Unable to show any progress towards functional goals [x] Progress towards functional goal is gradual / fair P: Limited po. Took only puree textures and 2 sips of water. Total Minutes: 22 minutes Kristen Burton M.A.CCC/MAIL PROCESSING CLERK Speech-Language Pathologist * Shaheen Man DO - 10/13/2019 3:38 PM EDT Palliative Care Progress Note Chief Complaint: Charlie Nguyen is a 64 y.o. female with chief complaint of altered mental status. Assessment/Plan Active Hospital Problems Diagnosis Date Noted Unspecified mood (affective) disorder ([facility]) [F39] Acute respiratory failure with hypoxia ([facility]) [J96.01] Intentional drug overdose ([facility]) [T50.242A] 10/03/2019 Drug overdose, multiple drugs, accidental or unintentional, initial encounter [T50.059L] 10/03/2019 Goals of care -patient appears to retain capacity for medical decision-making -surrogate decision-maker is legally her ( 5-6 years), Brayden Nguyen ([phone]). She has 2 living adult children (Vicente and Art) who are involved, but are NOT legally decision-makers. -discussed patient's surrogate decision-maker situation. She confirms unequivocally that she still wants her estranged to her medical decision-maker. She does not want a HCPOA. He knows me best and I trust him. -we also discussed disposition and she wants to go home. I discussed the risks of that and she doesnot feel that they are of concern to her. She wants to have C PT/OT. Family reports that in the past she had declined to have them involved. Will require additional conversation with patient because going home is likely an unsafe discharge plan. Acute respiratory failure with hypoxia -2/2 encephalopathy/drug overdose/pneumonia -SARS-CoV-2 negative -intubated 10/03/19-10/09/19, failed HFNC/NIV, reintubated 10/09/19-10/12/19 -tolerating 2-3L/min nasal cannula Acute metabolic encephalopathy -improved -monitor MSSA pneumonia -s/p bronch 10/06/19 due to copious secretions -IV abx per primary Intentional drug overdose -reported in chart -psych following Depression/anxiety -longstanding issue per family -psych following Multiple sclerosis/debility -follows with the [facility] as outpatient -uses wheelchair at baseline -requesting records from [facility] Palliative care encounter -DNRCCA/DNI->ordered as limited code -goals of care established -social work and RN CM discharge planning -will follow peripherally Greater than 51% of time spent, total 25 minutes in counseling and coordination of care at the bedside regarding Goals of Care and See Above Discharge planning: to be determined Patient meets criteria for general inpatient hospice care including the following: N/A- Palliative Care Patient Referrals to: none today Discussed patient and the plan of care with the other IDT membersof Palliative Care, and with Patient and Floor Nurse Subjective: Subjective/Events 64 y.o. female who presented with altered mental status. Admitted to ICU for respiratory failure requiring intubation due to encephalopathy from drug overdose. Consultation requested for Symptom management and Family support. 0 ER visits and 0 hospitalizations in the last 12 months. Interval history -no overnight events -transferred to tele today -denies pain, fever, chills, shortness of breath -+cough, tolerating PO Goals of care:Improve or Maintain Function/Quality of Life, Remain at Home and Preserve [place]/Autonomy/Control Advance Directives: limited code- no CPR or intubation, okay for NIV Surrogate: Spouse Prognosis: unknown Spiritualassessment: No spiritual distress identified Bereavement and grief: To Be Determined ROS: See palliative care ROS/ESAS below; see HPI Review of Systems Social history: status: no Marital status: , 5-6 years Children: 3 children (1 daughter, 1 living son, 1 living daughter) Living status: alone Work history: Family Meeting: Participants:No Family Meeting Held Today Family meeting was held to discuss: Objective: Physical Exam BP 114/69 Pulse 113 Temp 98.8 F (37.1 C) (Temporal) Resp 18 Ht 5' 9 (1.753 m) Wt 270 lb (122.5 kg) SpO2 92% BMI 39.87 kg/m Physical Exam Vitals signs reviewed. Constitutional: General: She is not in acute distress. Appearance: She is not diaphoretic. HENT: Head: Normocephalic and atraumatic. Nose: Comments: Nasal cannula Eyes: General: Right eye: No discharge. Left eye: No discharge. Neck: Vascular: No JVD. Pulmonary: Effort: Pulmonary effort is normal. No respiratory distress. Breath sounds: No stridor. Musculoskeletal: General: No deformity (b/l LEs). Skin: General: Skin is warm and dry. Neurological: Mental Status: She is alert and oriented to person, place, and time. Psychiatric: Comments: No anxiety or agitation [place] Symptom Assessment Score [place] Score Pain Score 0 Tiredness Score 5 Nausea Score 0 Depression Score 0 Anxiety Score 0 Drowsiness Score 0 Anorexia Score (0= eating well, 10= not eating) 4 Wellbeing Score (10= worst sense of well-being) 5 Constipation 0 Dyspnea Score (0= no shortness of breath) 0 Assessed by: provider. CurrentMedications: Inpatient medications reviewed: yes 24 Hour PRN Meds: no PRN medications in 24 hours Results/Verification of Data Review Objective data reviewed: labs, images, records, medication use, vitals and chart Data in Support of Terminal Illness: Charlie Nguyen is a 64 y.o. female who was seen for [id number] on 10/10/19 who is hospice appropriate with an expected prognosis of 6 months or less due to the following: Not applicable Write hospice narrative \ * Sandie Taylor, OT - 10/13/2019 1:20 PM EDT Occupational Therapy Occupational Therapy Initial Assessment Date: 10/13/2019 Patient Name: Charlie Nguyen : 1955 Date of Service: 10/13/2019 Discharge Recommendations: Subacute/Halfway Facility, Continue to assess pending progress, LTACH OT Equipment Recommendations Other: TBD Assessment Performance deficits / Impairments: Decreased functional mobility ;Decreased ADL status;Decreased strength;Decreased safe awareness;Decreased cognition;Decreased endurance;Decreased balance;Decreasedcoordination;Decreased posture Assessment: Pt previously lived with family and medical record indicates she is primarily w/c bound. Pt is very confused but motivated to participate, with poor insight to her deficits and need for assistance during ADL routine. Pt presents with significant risk for falls and further decline, and is expected to benefit from continued skilled OT services to address deficits. Pt may benefit from SNF at discharge if mentation improves, and is on OT caseload to improve functional independence. Prognosis: Guarded;Fair Decision Making: High Complexity History: Pt is 64yo female admitted with intentional drug overdose s/p intubation and metabolic encephalopathy. Pt with hx MS and listed below. Exam: AM PAC Assistance / Modification: MAX to TOTAL ASSIST OT Education: OT Role;Plan of Care;Orientation Barriers to Learning: cog noted, fatigue REQUIRES OT FOLLOW UP: Yes Activity Tolerance Activity Tolerance: Treatment limited secondary to decreased cognition;Patient limited by fatigue Safety Devices Safety Devices in place: Yes Type of devices: All fall risk precautions in place;Call light within reach;Patient at risk for falls;Left in bed;Nurse notified Restraints Initially in place: No Patient Diagnosis(es): The primary encounter diagnosis was Intentional drug overdose, initial encounter (HCC). Diagnoses of Acute hypoxemic respiratory failure (HCC) and Leukocytosis, unspecified type were also pertinent to this visit. has a past medical history of Anxiety, Brain tumor (HCC), Depression, GERD (gastroesophageal refluxdisease), Headache, Ischemic colitis (HCC), and MS (multiple sclerosis) ([facility]). has a past surgical history that includes Hysterectomy; Tubal ligation; knee surgery (Right, 06/2016); and bronchoscopy (10/06/2019). Restrictions Restrictions/Precautions Restrictions/Precautions: Up as Tolerated, General Precautions, Fall Risk(HICU telemetry, catheter,FMS rectal tube, 3L of O2, high fall risk) Subjective General Chart Reviewed: Yes Patient assessed for rehabilitation services?: Yes Additional Pertinent Hx: MS, brain tumor 2014 Family / Caregiver Present: No Subjective Subjective: confused but cooperative. quick to change to agitated but redirectable General Comment Comments: OK to see per RN Patient Currently in Pain: Denies Vital Signs Temp: 98.7 F (37.1 C) Temp Source: Temporal Pulse: 106 Heart Rate Source: Monitor Resp: 16 BP: (!) 135/93 BP Location: Left Arm MAP (mmHg): 107 Patient Position: Supine Patient Currently in Pain: Denies Oxygen Therapy SpO2: 94 % O2 Device: Nasal cannula O2 Flow Rate (L/min): 3 L/min Social/Functional History Social/Functional History Lives With: Alone Type of Home: House Home Layout: Two level, Bed/Bath upstairs Home Access: (wheelchair lift) Bathroom Shower/Tub: (cannot get upstairs to use facility, sponges with baby wipes) Bathroom Equipment: 3-in-1 commode Home Equipment: (denies) ADL Assistance: (sponges w baby wipes per self, transfers self to [facility] via couch) Homemaking Assistance: (son brings her food in am and after work daily) Homemaking Responsibilities: (she is unable, daughter reports not getting done) Ambulation Assistance: (does not ambulate) Transfer Assistance: Independent Active Oncology Specialist: No Patient's Oncology Specialist Info: son Occupation: On disability Additional Comments: Supposedly pt transfer to wheelchair as per chart review. However pt states she stays mostly on couch and slides herself on the floor. Pt does not make sense at times Objective Vision: Impaired Vision Exceptions: Wears glasses at all times Hearing: Within functional limits Orientation Overall Orientation Status: Impaired Orientation Level: Oriented to person;Disoriented to situation;Disoriented to time;Disoriented to place(pt states July) Observation/Palpation Posture: Poor Observation: pt appears to have foot drop on left but able to actively engage left DF. Swollen BLE Edema: B LE Balance Sitting Balance: Maximum assistance(initially max assist however once repositioned CGA for static sitting EOB) Standing Balance: Unable to assess(comment) ADL Feeding: Minimal assistance Grooming: Moderate assistance UE Bathing: Maximum assistance LE Bathing: Dependent/Total UE Dressing: Maximum assistance LE Dressing: Dependent/Total Toileting: Dependent/Total Additional Comments: pt limited by confusion and difficulty sequencing/initiating tasks, with MAX ASSIST x2 for bed mobility with poor direction following. Pt states she stays on the couch typically and is indep with ADLs at w/c level (unlikely but no family present to confirm/deny) Coordination Movements Are Fluid And Coordinated: No Bed mobility Rolling to Left: Maximum assistance;2 Person assistance Scooting: Maximal assistance Transfers Sit to stand: Unable to assess Vision - Basic Assessment Prior Vision: Wears contacts(per pt report) Cognition Overall Cognitive Status: Exceptions Arousal/Alertness: Appropriate responses to stimuli Following Commands: Inconsistently follows commands Attention Span: Attends with cues to redirect;Difficulty attending to directions;Difficulty dividing attention Memory: Decreased long term care social worker memory;Decreased short term memory;Decreased recall of recent events;Decreased recall of precautions;Decreased recall of biographical Information Safety Judgement: Decreased awareness of need for assistance;Decreased awareness of need for safety Problem Solving: Decreased awareness of errors Insights: Decreased awareness of deficits Initiation: Requires cues for some Sequencing: Requires cues for some Cognition Comment: acute encephalopathy Sensation Overall Sensation Status: (no complaints, hx MS) LUE PROM (degrees) LUE PROM: WFL LUE AROM (degrees) LUE AROM : WFL RUE PROM (degrees) RUE PROM: WFL RUE AROM (degrees) RUE AROM : WFL LUE Strength Gross LUE Strength: Exceptions to WFL LUE Strength Comment: difficulty following directions for MMT, however appears to be ~4/5 MMT RUE Strength Gross RUE Strength: Exceptions to WFL RUE Strength Comment: difficulty following directions for MMT, however appears to be ~4/5 MMT; reports R hand dominant Plan Plan Times per week: 5 visits Current Treatment Recommendations: Strengthening, Balance Training, Endurance Training, Neuromuscular Re-education, Equipment Evaluation, Education, & procurement, Cognitive Reorientation, Cognitive/Perceptual Training, Self-Care / ADL, Safety Education & Training Plan Comment: Goals and POC were established in collaboration with patient. AM-PAC Score AM-PAC Inpatient Daily Activity Raw Score: 10 (10/13/19 130) AM-PAC Inpatient ADL T-Scale Score : 27.31 (10/13/19 130) ADL Inpatient CMS 0-100% Score: 74.7 (10/13/19 130) ADL Inpatient CMS G-Code Modifier : CL (10/13/191305) Goals Short term goals Time Frame for Short term goals: 5 visits Short term goal 1: Pt will complete bed mobility at MIN ASSIST in order to improve participation inADL routine. Short term goal 2: Pt will gurinder >10 min of functional EOB sitting during ADLs. Short term goal 3: Pt will complete UB ADLs and grooming tasks at SUP. Short term goal 4: Pt will gurinder B UE ther exe to promote strength for ADLs and transfers. Short term goal 5: Pt will demonstrate improved orientation and ability to utilize call light to make needs known 100% of the time this admission. Patient Goals Patient goals : improve ADL indep Therapy Time Individual Concurrent Group Co-treatment Time In 1114(co eval with PT) Time Out 1128 Minutes 14 Sandie Taylor OT * Byron Jackson, PT - 10/13/2019 1:20 PM EDT Physical Therapy Facility/Department: [facility] 2E TELEMETRY Initial Assessment NAME: Charlie Nguyen : 1955 Date of Service: 10/13/2019 Discharge Recommendations: Subacute/Halfway Facility Assessment Body structures, Functions, Activity limitations: Decreased functional mobility ;Decreased strength;Decreased endurance;Decreased cognition;Decreased ROM;Decreased ADL status Assessment: Pt admitted for being unresponsive at home. 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 Pt supposedly uses wheelchair but pt denies that. Pt is confused during session. Pt states I was told to be off my feet for 3 [address] Dr[address] Webb due to my knee surgery. Pt has old looking scar on RLE. However pt then states no issues now with RLE. Pt overall not safe for homegoing due to confusion, weakness and balance. Recommend SNF Prognosis: Good Decision Making: Medium Complexity PT Education: PT Role;Plan of Care;Goals REQUIRES PT FOLLOW UP: Yes Activity Tolerance Activity Tolerance: Patient limited by fatigue;Patient limited by cognitive status Patient Diagnosis(es): The primary encounter diagnosis was Intentional drug overdose, initial encounter ([facility]). Diagnoses of Acute hypoxemic respiratory failure (HCC) and Leukocytosis, unspecified type were also pertinent to this visit. has a past medical history of Anxiety, Brain tumor ([facility]), Depression, GERD (gastroesophageal refluxdisease), Headache, Ischemic colitis ([facility]), and MS (multiple sclerosis) ([facility]). has a past surgical history that includes Hysterectomy; Tubal ligation; knee surgery (Right, 06/2016); and bronchoscopy (10/06/2019). Restrictions Restrictions/Precautions Restrictions/Precautions: Up as Tolerated, General Precautions, Fall Risk(HICU telemetry, catheter,FMS rectal tube, 3L of O2, high fall risk) Vision/Hearing Vision: Within Functional Limits Hearing: Within functional limits Subjective General Chart Reviewed: Yes Patient assessed for rehabilitation services?: Yes Additional Pertinent Hx: Pt initially found unresponsive with 2 empty pill bottles next to pt. [place] unsuccesful and intubated. extubated on 10/08 but reintubated due to worsening respiratory status.Extubated again on 10/11 Family / Caregiver Present: No Follows Commands: Within Functional Limits Subjective Subjective: Pt agreeable for therapy but confused during session. Pt doesn't always make sense Pain Screening Patient Currently in Pain: Denies Vital Signs Patient Currently in Pain: No Orientation Orientation Overall Orientation Status: Impaired Orientation Level: Oriented to person;Disoriented to situation;Disoriented to time;Oriented to place(stated it was july) Social/Functional History Social/Functional History Lives With: Alone Type of Home: House Home Layout: Two level, Bed/Bath upstairs Home Access: (wheelchair lift) Bathroom Shower/Tub: (cannot get upstairs to use facility, sponges with baby wipes) Bathroom Equipment: 3-in-1 commode Home Equipment: (denies) ADL Assistance: (sponges w baby wipes per self, transfers self to [facility] via couch) Homemaking Assistance: (son brings her food in am and after work daily) Homemaking Responsibilities: (she is unable, daughter reports not getting done) Ambulation Assistance: (does not ambulate) Transfer Assistance: Independent Active Oncology Specialist: No Patient's Oncology Specialist Info: son Occupation: On disability Additional Comments: Supposedly pt transfer to wheelchair as per chart review. However pt states she stays mostly on couch and slides herself on the floor. Pt does not make sense at times Cognition Cognition Overall Cognitive Status: Exceptions Arousal/Alertness: Appropriate responses to stimuli Following Commands: Inconsistently follows commands Attention Span: Attends with cues to redirect;Difficulty attending to directions;Difficulty dividing attention Memory: Decreased long term care social worker memory;Decreased short term memory;Decreased recall of recent events;Decreased recall of precautions;Decreased recall of biographical Information Safety Judgement: Decreased awareness of need for assistance;Decreased awareness of need for safety Problem Solving: Decreased awareness of errors Insights: Decreased awareness of deficits Initiation: Requires cues for some Objective Observation/Palpation Observation: pt appears to have foot drop on left but able to actively engage left DF. Swollen BLE PROM RLE (degrees) RLE PROM: WFL AROM RLE (degrees) RLE General AROM: <25% AROM hip/knee and ankle is WFL PROM LLE (degrees) LLE PROM: WFL AROM LLE (degrees) LLE General AROM: <25% AROM hip/knee and ankle is WFL Strength RLE Comment: 2-/5; ankle is 3+/5 Strength LLE Comment: 2-/5; ankle is 3+/5 Tone RLE RLE Tone: Normotonic Tone LLE LLE Tone: Normotonic Motor Control Gross Motor?: WNL Sensation Overall Sensation Status: (Denies N/Ting) Bed mobility Supine to Sit: Maximum assistance Sit to Supine: Maximum assistance Comment: Pt initially required max assist x2 to sit up. Pt barely initiates movement with BUE and BLE. Pt required max assist x1-2 for sitting balance. Pt stated I can do it and able to progress toSBA x1 for standing but did have postural sway. Ambulation Ambulation?: No Balance Sitting - Static: (varied between poor to fair ) Sitting - Dynamic: (varied between poor and fair) Plan Plan Times per week: 7 visits Current Treatment Recommendations: Strengthening, Functional Mobility Training, Transfer Training, ROM, Balance Training, Patient/Caregiver Education & Training, Safety Education & Training, Home Exercise Program, Wheelchair Mobility Training, Endurance Training, Positioning Safety Devices Type of devices: Left in bed, Call light within reach, Sitter present, Gait belt, All fall risk precautions in place, Patient at risk for falls G-Code OutComes Score AM-PAC Score AM-PAC Inpatient Mobility Raw Score : 6 (10/13/191312) AM-PAC Inpatient T-Scale Score : 23.55 (10/13/191312) Mobility Inpatient CMS 0-100% Score: 100 (10/13/191312) Mobility Inpatient CMS G-Code Modifier : CN (10/13/191312) Goals Short term goals Time Frame for Short term goals: 7 visits Short term goal 1: Bed mobility SBA x1 Short term goal 2: Transfers with min assist x1 Short term goal 3: Sitting balance >5 minutes with no loss of balance and no postural sway Short term goal 4: Bed to chair or wheelchair transfer with min assist x1 Short term goal 5: Improve BLE strength to 4-/5 Short term goal 6: Propel wheelchair 50 feet x1 with BUE/BLE with SBA x1 Patient Goals Patient goals : no goal stated Therapy Time Individual Concurrent Group Co-treatment Time In 1114(Co-eval with OT) Time Out 1131 Minutes 17 [facility]. Goals and/or treatment plan was established in collaboration with patient/family/other (specify). No Bed/chair alarm on prior to session and no alarm after session This PT wore N95, gloves and goggles during session Byron Jackson, PT * Negra Peter - 10/13/2019 10:48 AM EDT Hooked up hospital phone in pt. Room for her to speak to her daughter Vicente who called. Phone call was going fine at first, pt told her daughter Im confused. Then soon after pt. Was telling daughternorma not really her on the phone and that she was happily and began calling her names and saying profanities to her, and then hung up on her. Pt. Looked at me and said That b%$#* is just mad my chose me and not her, wait till I get out of here and get my hands on her pt. Remains agitated and talking about phone call. Tried to redirect pt. And ask if she would like to watch TV andpt. Said no. I unhooked hospital phone and took out of the pt. Room. * Nick Stover, [facility] - 10/13/2019 9:23 AM EDT Patient Evaluation Form The patient is currently receiving duoneb q4 Points 0 1 2 3 4 Points Totals Pulmonary Status (-/+) History Smoking history < 20 pack years Smoking history > 20 pack years Pulmonary Disorder (acute or chronic) Severe or Chronic with Exacerbation 2 Surgical Status No Surgery Trach PEG General Surgery Lower Abdominal Thoracic or Upper Abdominal Thoracic with Pulmonary Disorder 0 Chest X-ray Clear None Ordered Chronic Changes CXR results Pending Infiltrates, atelectasis, pleural effusion, or edema Infiltrates in more than one lobe Infiltrate + Atelectasis, &/or pleural effusion 4 Respiratory Pattern Regular, RR = 12-20 Increased, RR = 21-25 SILVEIRA, irregular, or RR = 26-30 Decreased FEV1 or RR = 31-35 Severe SOB, used of of accessory muscles, or RR = > 35 0 Mental Status Alert, oriented, cooperative Confused, but follows commands Lethargic or un-able to follow commands Obtunded Comatose 0 Breath Sounds Clear to auscultation Decreased unilaterally or in bases only Decreased bilaterally Crackles or intermittent wheezes Wheezes 1 Cough Strong, spontaneous, & nonproductive Strong, spontaneous, & productive Weak, nonproductive Weak, productive or with wheezes No spontaneous cough or may require suctioning 1 Level of Activity Ambulatory Ambulatory with Assist Non-ambulatroy Paraplegic Quadriplegic 1 Triage 1 > 20 pts Triage 2 16-20 pts Triage 3 11- 15 pts Triage 4 6 - 10 pts Triage 5 0 - 5 pts TOTAL POINTS = 9 Triage Score = 4 PEF: FVC: FEV1: FVE1/FVC: Patient instructed and returned demonstration on use of MDI (with spacer, as appropriate) No Changing Therapy to duoneb q4 prn PT is refusing aerosol treatments, understands to call for treatment if short of breath. IS and acapella encouraged * Max Bob DO - 10/13/2019 9:06 AM EDT Patient transferred out of ICU onto hospitalist service. * Negra Peter - 10/13/2019 7:40 AM EDT Pt allowed me to get her oral temperature which was 99.1*F. Pt keeps repeating I need 40mg of that medication for it to work to take my heartburn away Told pt. I would alert RN that she was havingheartburn * Clinton Deleon MD - 10/13/2019 6:22 AM EDT Critical Care Note: Patient - Charlie Nguyen, Age - 64 y.o. - 1955 Room Number - [address] [place] [address] [id number] Date of Admission - 10/03/2019 7:34 AM Hospital Day - 10 HPI/Subjective: 10/12 Patient extubated yesterday, doing better Awake and alert, on N/C oxygenating well ENT/ Psych consult noted No UAO, Cxray showed mild increase in density rt lower lobe/ improving left basilar infiltrate/ atelectasis 10/11 Patient tolerated SBT okay yesterday however remained relative hypoxic, Cxray bilateral lower lobe consolidation, placed back on full vent support This morning she is awake, remained intubated ABG showed mild improvement in relative hypoxemia Having moderate amount of white secretion Needed cautious approach to extubation sec to re- intubation post extubation days ago Patient did pass Occlusion test yesterday 10/10 Patient remained intubated, mechanically ventilated She is awake this morning Afebrile ABG showed relative hypoxemia, PO2 on FiO2 .5 PO2 79 Patient was placed on SBT did ok, however having large amount of thick secretions 10/09 Admitted with altered mental status allegedly sec to drug overdose, was intubated in ER, patient was extubated yesterday morning however got re intubated again sec to stridor/ resp failure Cxray showed bilateral infiltrate/ effusion Sputum grew staph/ corynebacterium , on vancomycin as per ID stewardship Active Hospital Problem List Active Hospital Problems Diagnosis Date Noted Unspecified mood (affective) disorder ([facility]) [F39] Acute respiratory failure with hypoxia ([facility]) [J96.01] Intentional drug overdose ([facility]) [T50.902A] 10/03/2019 Drug overdose, multiple drugs, accidental or unintentional, initial encounter [T50.911A] 10/03/2019 All other systems reviewed Vitals height is 5' 9 (1.753 m) and weight is 270 lb (122.5 kg). Her oral temperature is 98.2 F (36.8 C).Her blood pressure is 137/82 and her pulse is 94. Her respiration is 15 and oxygen saturation is 93%. Range Data Temperature Range: Temp: 98.2 F (36.8 C)Temp Av.3 F (36.8 C) Min: 98.2 F (36.8 C) Max: 98.7 F (37.1 C) BP Range: Systolic (24hrs), Av , Min:120 , Max:171 Diastolic (24hrs), Av, Min:68, Max:102 Pulse Range: Pulse Av.6 Min: 54 Max: 106 Respiration Range: Resp Av Min: 12 Max: 23SpO2: 93 % 24HR Pulse Ox Range: SpO2 Av.5 % Min: 90 % Max: 99 %O2 Flow Rate (L/min): 3 L/min Patient Vitals for the past 8 hrs: BP Temp Temp src Pulse Resp SpO2 Weight 10/13/19 0524 270 lb (122.5 kg) 10/13/19 0301 137/82 98.2 F (36.8 C) Oral 94 15 93 % 10/13/19 0201 123/68 100 23 92 % 10/13/19 0102 120/73 100 19 90 % 10/13/19 0002 (!) 140/78 96 20 92 % 10/12/19 2302 (!) 142/78 98.4 F (36.9 C) Oral 98 18 97 % I/O Intake/Output Summary (Last 24 hours) at 10/13/2019 0622 Last data filed at 10/13/2019 0600 Gross per 24 hour Intake 3096.77 ml Output 4005 ml Net -908.23 ml I/O last 3 completed shifts: In: 1618.8 [I.V.:1118.8; IV Piggyback:500] Out: 3785 [Urine:3775; Stool:10] Date 10/13/19 0000 - 10/13/19 2359 Shift 8750-0908 5575-1902 0838-6705 24 Hour Total INTAKE I.V.(mL/kg) 978(8) 978(8) IV Piggyback(mL/kg) 500(4.1) 500(4.1) Shift Total(mL/kg) 1478(12.1) 1478(12.1) OUTPUT Urine(mL/kg/hr) 1030 1030 Stool(mL/kg) 90(0.7) 90(0.7) Shift Total(mL/kg) 1120(9.1) 1120(9.1) Weight (kg) 122.5 122.5 122.5 122.5 Patient Vitals for the past 96 hrs (Last 3 readings): Weight 10/13/19 0524 270 lb (122.5 kg) Drains/Tubes Outputs reviewed Lines, ET tube, Devices ETTube Day - re intubation 10/08 / Extubated 10/11 Lines - RT IJ 10/07 No results found for: IFIO2, MODE, SETTIDVOL, SETPEEP Medications dexamethasone 4 mg Intravenous Q8H vancomycin 2,000 mg Intravenous Q12H ipratropium-albuterol 1 ampule Inhalation Q4H QUEtiapine 25 mg Oral BID sodium chloride flush 10 mL Intravenous 2 times per day enoxaparin 40 mg Subcutaneous Daily IV Diet/Nutrition No diet orders on file Exam VITALS height is 5' 9 (1.753 m) and weight is 270 lb (122.5 kg). Her oral temperature is 98.2 F (36.8 C).Her blood pressure is 137/82 and her pulse is 94. Her respiration is 15 and oxygen saturation is 93%. Constitutional - awake and alert No acute distress HEENT - has N/C on oxygenating well Lungs - Diminished breathe sounds at the bases, Bilateral rales No wheezing Cardiovascular - Heart sounds are normal. Normal rate and rhythm regular, no murmur, gallop or rub. Abdomen - soft, nontender, nondistended, no masses or organomegaly Skin - no bruising or bleeding Extremities - no cyanosis, clubbing or edema FLIGHT OPERATIONS COORDINATOR- awake and alert Moves all extremities Cranial nerve intact Non focal exam Lab Results CBC Lab Results Component Value Date WBC 15.9 10/13/2019 WBC 10.4 04/28/2015 RBC 3.78 10/13/2019 HGB 11.9 10/13/2019 HCT 36.1 10/13/2019 PLT 668 10/13/2019 MCV 95.7 10/13/2019 MCH 31.6 10/13/2019 MCHC 33.1 10/13/2019 RDW 14.7 10/13/2019 SEGSPCT 70.0% 04/28/2015 LYMPHOPCT 9.7 10/13/2019 MONOPCT 5.3 10/13/2019 MONOPCT 5.1% 04/28/2015 BASOPCT 0.8 10/13/2019 BASOPCT 1.0% 04/28/2015 MONOSABS 0.8 10/13/2019 MONOSABS 0.5 04/28/2015 LYMPHSABS 1.5 10/13/2019 LYMPHSABS 2.5 04/28/2015 EOSABS 0.0 10/13/2019 EOSABS 0.0 04/28/2015 BASOSABS 0.1 10/13/2019 BASOSABS 0.1 04/28/2015 BMP Lab Results Component Value Date NA 142 10/13/2019 K 2.8 10/13/2019 CL 105 10/13/2019 CO2 28 10/13/2019 BUN 15 10/13/2019 CREATININE 0.52 10/13/2019 GLUCOSE 110 10/13/2019 CALCIUM 8.2 10/13/2019 IONCA 3.50 10/05/2019 LFTS Lab Results Component Value Date ALKPHOS 174 10/13/2019 ALT 122 10/13/2019 AST 118 10/13/2019 PROT 7.2 10/13/2019 BILITOT 0.9 10/13/2019 BILIDIR 0.0 10/06/2019 LABALBU 3.4 10/13/2019 INR No results found for: INR, PROTIME APTT No results for input(s): APTT in the last 72 hours. Lactic Acid Lab Results Component Value Date LACTA 1.3 10/03/2019 BNP No results for input(s): BNP in the last 72 hours. Cultures Sputum staph/ corynebacterium Radiology CXR Reviewed (See actual reports for details) ASSESSMENT AND PLANS # Acute respiratory failure/ re intubation/ Stridor/ bilateral pneumonia likely aspiration/ MSSA/ Corynebacterium S/p extubation Doing better Oxygenating well on N/C contnue iv antibiotics F/u cxray # Acute Encephalopathy sec to drug overdose amitriptyline/ Lyrica, Clinically has improved/ post extubation Neurology check up CT Head negative Supportive care # Transaminitis F/u LFT Check hepatitis screening # ? Intentional drug overdose/ Hx of anxiety/ depression One to one observation, continue for now Psychiatry consult appreciated Needs Psychiatry f/u to determine need for in patient psych treatment # DVT/ GI prophylaxis / FEN On lovenox,/ protonix # Hx of Multiple Sclerosis PT/OT # Hx of HTN/ GERD BP stable currently Resume protonix Patient medically stable to be transferred to telemetry floor with psych and pulmonary f/u Case discussed with nurse Questions and concerns addressed. * Kristen Burton, MAIL PROCESSING CLERK - 10/12/2019 2:38 PM EDT Speech Language Pathology Facility/Department: [facility] CLINICAL BEDSIDE SWALLOW EVALUATION NAME: Charlie Nguyen : 1955 ADMISSION DATE: 10/03/2019 ADMITTING DIAGNOSIS: has Migraine; Internal derangement of right knee; Glioma (HCC); Hypertension; Chronic nonintractable headache; Intentional drug overdose (HCC); Drug overdose, multiple drugs, accidental or unintentional, initial encounter; and Acute respiratory failure with hypoxia (HCC) on their problem list. ONSET DATE: 10/03/2019 Intentional drug overdose-lyrica, amtriptyline. Pt admitted and intubated 10/02.Extubated initially 10/09 and re intubated; Extubated this am 10/11. Recent Chest Xray/CT of Chest: ( Date 10/10/2019 )\ A single portable AP radiograph of the chest was obtained with a low-level of inspiration. The heart is borderline enlarged. The mediastinal silhouette is normal. Chronic interstitial changes are present with bibasal infiltrates and right basal atelectasis. Small bibasal effusions are noted. There is no pleural thickening. The osseous structures are unremarkable. The ET tube and NG tube are unchanged. A right internal jugular central venous catheter is present with the tip overlying the superior vena cava. IMPRESSION: No significant interval change. Continued bibasal infiltrates and effusions with right sided atelectasis Date of Eval: 10/12/2019 Evaluating Therapist: Kristen Burton Current Diet level: Current Diet : NPO Current Liquid Diet : NPO Primary Complaint S/p extubation after drug overdose, hypoxic, respiratory failure, leukocytosis Pain: Pain Assessment Pain Assessment: CPOT Pain Level: 0 Bucio-Petersen Pain Rating: No hurt Patient's Stated Pain Goal: No pain Response to Pain Intervention: Asleep with RR greater than 10 RASS Score: Alert and calm Reason for Referral Charlie Nguyen was referred for a bedside swallow evaluation to assess the efficiency of her swallowfunction, identify signs and symptoms of aspiration and make recommendations regarding safe dietaryconsistencies, effective compensatory strategies, and safe eating environment. Impression Dysphagia Impression : Recommend mild dysphagia related to cognition/psych distractions. Recommend dental soft diet with thin liquids. Meds with sips. Put in food if difficulty clearing. Assist with positioning as pt fall to her right consistently throughout the session. Did not follow commands to self reposition. ST will follow up. Dysphagia Outcome Severity Scale: Level 5: Mild dysphagia- Distant supervision. May need one diet consistency restricted Treatment Plan Requires MAIL PROCESSING CLERK Intervention: Yes Duration/Frequency of Treatment: 2 visits D/C Recommendations: Inpatient rehabilitation(psych rehab suspected) Referral To: (Psych Eval, pending s/p extubation) Recommended Diet and Intervention Diet Solids Recommendation: Dental Soft Liquid Consistency Recommendation: Thin Recommended Form of Meds: PO Recommendations: Assist feed Therapeutic Interventions: Patient/Family education;Therapeutic PO trials with MAIL PROCESSING CLERK;Diet tolerance monitoring Compensatory Swallowing Strategies Compensatory Swallowing Strategies: Upright as possible for all oral intake;Alternate solids and liquids;Assist feed(Redirect to task at hand) Treatment/Goals Short-term Goals Goal 1: Pt will consume dental soft diet for nutritional support without assist from staff and no overt symptoms of airway compromise. Goal 2: Pt will tolerate advance diet textures and advance as appropriate and tolerated. General Chart Reviewed: Yes Subjective Subjective: f*%# that whore POINTING to her left. Reassured pt now one is in the room. She's under the bed stabbing me through the mattress, OUE Behavior/Cognition: Alert;Distractible;Requires cueing Respiratory Status: O2 via nasual cannula O2 Device: Nasal cannula Liters of Oxygen: 4 L Dentition: Adequate Patient Positioning: Upright in bed Volitional Cough: Strong Volitional Swallow: Delayed Consistencies Administered: Reg solid;Dysphagia Pureed (Dysphagia I);Thin - cup;Thin - straw Vision/Hearing Vision Vision: Within Functional Limits Hearing Hearing: Within functional limits Oral Motor Deficits Oral/Motor Oral Motor: Exceptions to WFL Labial Symmetry: (slight droop on left) Lingual Symmetry: (Very slight, tongue deviate slight to right (positioning may place a roll)) Velum: (WFL) Oral Phase Dysfunction Oral Phase Oral Phase - Comment: Prolonged oral preparation and oral holding with distration to person in herroom. She required redirection back to task throughout session. Often whispering so that someone(?) would not hear her. Alternating liquids as necessary. Occasional mild oral residuals back of tongue and medial palate. Clear with additional swallow. Indicators of Pharyngeal Phase Dysfunction Pharyngeal Phase Pharyngeal: +laryngeal elevation. Appearing timely once swallow was iniatied. No OVERT symptoms of pharyngeal penetration/residuals. Occasional reswallow or needed cue to swallow since iniiation was delayed with hallucinations. SpO2 remained 90-92% Prognosis Prognosis Prognosis for safe diet advancement: fair Barriers to reach goals: cognitive deficits Barriers/Prognosis Comment: psych consult Individuals consulted Consulted and agree with results and recommendations: Patient;RN Education Patient Education: Role of MAIL PROCESSING CLERK, recommendations and need for assist Patient Education Response: Verbalizes understanding;Needs reinforcement Safety Devices in place: Yes Type of devices: Other (comment)(sitter at bedside or safety) Therapy Time MAIL PROCESSING CLERK Individual Minutes Time In: 1338 Time Out: 1405 Minutes: 27 JIM Franz 10/12/2019 2:45 PM * Anish Reed RPH - 10/12/2019 1:21 PM EDT Pharmacy Vancomycin Consult Follow-Up Note Current Dosin.5g q12hr Recent Labs 10/11/19 0508 10/12/19 0408 BUN 16 21* Recent Labs 10/11/19 0508 10/12/19 0408 CREATININE 0.50* 0.48* Recent Labs 10/11/19 0508 10/12/19 0408 WBC 8.2 9.4 Ht Readings from Last 1 Encounters: 10/05/19 5' 9 (1.753 m) Wt Readings from Last 1 Encounters: 10/03/19 270 lb (122.5 kg) Body mass index is 39.87 kg/m . Estimated Creatinine Clearance: 168 mL/min (A) (based on SCr of 0.48 mg/dL (L)). Trough: 11.5 Drawn 10/11 at 1218. Assessment/Plan: Trough drawn correctly, patient at steady state. Renal function stable. Will increase dose to 2g q12hr, goal trough 15-20. Will schedule trough before 4th dose of new regimen. Thank you. * Shaheen Man DO - 10/12/2019 1:14 PM EDT Palliative Care Initial Consult Chief Complaint: Charlie Nguyen is a 64 y.o. female with chief complaint of altered mental status. Assessment/Plan Active Hospital Problems Diagnosis Date Noted Acute respiratory failure with hypoxia (HCC) [J96.01] Intentional drug overdose (HCC) [T50.902A] 10/03/2019 Drug overdose, multiple drugs, accidental or unintentional, initial encounter [T50.911A] 10/03/2019 Goals of care -patient appears to retain capacity for medical decision-making -surrogate decision-maker is legally her ( 5-6 years), Brayden Nguyen ([phone]). She has 2 living adult children (Vicente and Art) who are involved, but are NOT legally decision-makers -before and after extubation, patient provided consistent answers to question around reintubation. She does not wish to be reintubated even if it prevented . She has a limited quality of life and would not want to be on extended life support machines which is a likely outcome if reintubated after 9 days on the mechanical ventilator. Acute respiratory failure with hypoxia -2/2 encephalopathy/drug overdose/pneumonia -SARS-CoV-2 negative -intubated 10/03/19-10/09/19, failed HFNC/NIV, reintubated 10/09/19-10/12/19 -tolerating 4L/min nasal cannula Acute metabolic encephalopathy -improved -monitor MSSA pneumonia -s/p bronch 10/06/19 due to copious secretions -IV abx per primary Intentional drug overdose -reported in chart -psych consult pending Depression/anxiety -longstanding issue per family -psych consult pending Multiple sclerosis/debility -follows with the [facility] as outpatient -uses wheelchair at baseline -requesting records from [facility] Palliative care encounter -DNRCCA/DNI->ordered as limited code -goals of care established -will need significant help from social work and RN CM for discharge planning -will follow peripherally Greater than 51% of time spent, total 35 minutes in counseling and coordination of care at the bedside regarding Goals of Care and See Above Discharge planning: to be determined Patient meets criteria for general inpatient hospice care including the following: N/A- Palliative Care Patient Referrals to: none today Discussed patient and the plan of care with the other IDT membersof Palliative Care, and with Primary Attending, Family and Floor Nurse Subjective: Hospital days prior to consult: 7 Subjective/Events 64 y.o. female who presented with altered mental status. Admitted to ICU for respiratory failure requiring intubation due to encephalopathy from drug overdose. Consultation requested for Symptom management and Family support. 0 ER visits and 0 hospitalizations in the last 12 months. Interval history -no overnight events -extubated today -patient is not sure why she ended up coming to the hospital -she is clear that she does not want to be reintubated Goals of care:To Be Determined Advance Directives: limited code- no CPR or intubation, okay for NIV Surrogate: Spouse Prognosis: unknown Spiritualassessment: No spiritual distress identified Bereavement and grief: To Be Determined ROS: See palliative care ROS/ESAS below; Detail ROS unable to obtain due to patient's mental status Review of Systems Social history: status: no Marital status: , 5-6 years Children: 3 children (1 daughter, 1 living son, 1 living daughter) Living status: alone Work history: Family Meeting: Participants:No Family Meeting Held Today Family meeting was held to discuss: Objective: Physical Exam BP (!) 171/98 Pulse 58 Temp 98.2 F (36.8 C) (Oral) Resp 17 Ht 5' 9 (1.753 m) Wt 270 lb (122.5 kg) SpO2 92% BMI 39.87 kg/m Physical Exam Vitals signs reviewed. Constitutional: General: She is not in acute distress. Appearance: She is not diaphoretic. HENT: Head: Normocephalic and atraumatic. Nose: Comments: Nasal cannula Eyes: General: Right eye: No discharge. Left eye: No discharge. Neck: Vascular: No JVD. Pulmonary: Effort: Pulmonary effort is normal. No respiratory distress. Breath sounds: No stridor. Musculoskeletal: General: No deformity (b/l LEs). Skin: General: Skin is warm and dry. Neurological: Mental Status: She is alert and oriented to person, place, and time. Psychiatric: Comments: No anxiety or agitation [place] Symptom Assessment Score [place] Score Pain Score 0 Tiredness Score 5 Nausea Score 0 Depression Score 0 Anxiety Score 0 Drowsiness Score 0 Anorexia Score (0= eating well, 10= not eating) 10 Wellbeing Score (10= worst sense of well-being) 5 Constipation 0 Dyspnea Score (0= no shortness of breath) 0 Assessed by: provider. CurrentMedications: Inpatient medications reviewed: yes 24 Hour PRN Meds: no PRN medications in 24 hours Results/Verification of Data Review Objective data reviewed: labs, images, records, medication use, vitals and chart Data in Support of Terminal Illness: Charlie Nguyen is a 64 y.o. female who was seen for [id number] on 10/10/19 who is hospice appropriate with an expected prognosis of 6 months or less due to the following: Not applicable Write hospice narrative \ * Renay Calix RCP - 10/12/2019 9:27 AM EDT [facility] Respiratory Care Department Progress Note Spontaneous Breathing Trial (SBT) Start: 2-3 min to Stabilize After 15 min After 3.5 HRS HR 55 54 SpO2 (%) 94 97 RR 16 18 VT (L) .437 .452 Total RSBI (RR/VT in Liters) Pass SBT (RSBI must be?105 to pass) NA NA Comments (state reason if SBT failed): Passes occlusion test. Additional data if requested: NIF = -50 VC = Name of physician results were reported to: ADRIENNE Thank you for involving Respiratory in the care of this patient, * Clinton Deleon MD - 10/12/2019 6:30 AM EDT Critical Care Note: Patient - Charlie Nguyen, Age - 64 y.o. - 1955 Room Number - Critical access hospital[id number] Date of Admission - 10/03/2019 7:34 AM Hospital Day - 9 HPI/Subjective: 10/11 Patient tolerated SBT okay yesterday however remained relative hypoxic, Cxray bilateral lower lobe consolidation, placed back on full vent support This morning she is awake, remained intubated ABG showed mild improvement in relative hypoxemia Having moderate amount of white secretion Needed cautious approach to extubation sec to re- intubation post extubation days ago Patient did pass Occlusion test yesterday 10/10 Patient remained intubated, mechanically ventilated She is awake this morning Afebrile ABG showed relative hypoxemia, PO2 on FiO2 .5 PO2 79 Patient was placed on SBT did ok, however having large amount of thick secretions 10/09 Admitted with altered mental status allegedly sec to drug overdose, was intubated in ER, patient was extubated yesterday morning however got re intubated again sec to stridor/ resp failure Cxray showed bilateral infiltrate/ effusion Sputum grew staph/ corynebacterium , on vancomycin as per ID stewardship Active Hospital Problem List Active Hospital Problems Diagnosis Date Noted Acute respiratory failure with hypoxia (HCC) [J96.01] Intentional drug overdose (HCC) [T50.902A] 10/03/2019 Drug overdose, multiple drugs, accidental or unintentional, initial encounter [T50.161A] 10/03/2019 All other systems reviewed Vitals height is 5' 9 (1.753 m) and weight is 270 lb (122.5 kg). Her axillary temperature is 98.8 F (37.1C). Her blood pressure is 149/75 (abnormal) and her pulse is 55. Her respiration is 20 and oxygen saturation is 94%. Range Data Temperature Range: Temp: 98.8 F (37.1 C)Temp Av.9 F (37.2 C) Min: 98.6 F (37 C) Max: 99.3 F (37.4 C) BP Range: Systolic (24hrs), Av , Min:120 , Max:170 Diastolic (24hrs), Av, Min:60, Max:95 Pulse Range: Pulse Av.4 Min: 52 Max: 70 Respiration Range: Resp Av.1 Min: 12 Max: 26SpO2: 94 % 24HR Pulse Ox Range: SpO2 Av.4 % Min: 93 % Max: 100 %O2 Flow Rate (L/min): 40 L/min Patient Vitals for the past 8 hrs: BP Temp Temp src Pulse Resp SpO2 10/12/19 0502 (!) 149/75 55 20 94 % 10/12/19 0431 53 19 97 % 10/12/19 0402 (!) 157/86 57 12 96 % 10/12/19 0302 129/67 98.8 F (37.1 C) Axillary 60 19 95 % 10/12/19 0259 62 10/12/19 0202 (!) 170/90 53 18 96 % 10/12/19 0121 (!) 168/84 52 16 96 % 10/12/19 0010 59 10/12/19 0002 (!) 169/93 53 19 98 % 10/11/19 2349 52 18 98 % 10/11/19 2302 (!) 163/82 99 F (37.2 C) Axillary 55 19 96 % I/O Intake/Output Summary (Last 24 hours) at 10/12/2019 0630 Last data filed at 10/12/2019 0330 Gross per 24 hour Intake 2362.5 ml Output 3545 ml Net -1182.5 ml I/O last 3 completed shifts: In: 2362.5 [I.V.:1003.5; NG/GT:1109; IV Piggyback:250] Out: 3900 [Urine:3800; Stool:100] Date 10/12/19 0000 - 10/12/19 2359 Shift 9790-2651 4727-9867 3757-8920 24 Hour Total INTAKE Shift Total(mL/kg) OUTPUT Urine(mL/kg/hr) 375 375 Stool(mL/kg) 0(0) 0(0) Shift Total(mL/kg) 375(3.1) 375(3.1) Weight (kg) 122.5 122.5 122.5 122.5 No data found. Drains/Tubes Outputs reviewed Lines, ET tube, Devices ETTube Day - re intubation 10/08 Lines - RT IJ 10/07 Mechanical Ventilation Data Vent Information Skin Assessment: Clean, dry, & intact Equipment ID: [id number] Equipment Changed: Other (comment) Vent Type: 840 Vent Mode: AC/VC+ Vt Ordered: 400 mL Rate Set: 14 bmp Peak Flow: 48 L/min Pressure Support: 0 cmH20 FiO2 : 45 % SpO2: 94 % SpO2/FiO2 ratio: 208.89 PaO2/FiO2 ratio: 1.29 Sensitivity: 3 PEEP/CPAP: 8 I Time/ I Time %: 0.9 s Humidification Source: Heated wire Humidification Temp: 37 Humidification Temp Measured: 36.9 Circuit Condensation: Drained Nitric Oxide/Epoprostenol In Use?: No Additional Respiratory Assessments Pulse: 55 Resp: 20 SpO2: 94 % Position: Semi-Gloria's Humidification Source: Heated wire Humidification Temp: 37 Circuit Condensation: Drained Oral Care Completed?: No Oral Care: Mouth swabbed, Mouth moisturizer, Mouth suctioned Subglottic Suction Done?: Yes Cuff Pressure (cm H2O): 24 cm H2O ABG Lab Results Component Value Date PH 7.42 10/05/2019 No results found for: IFIO2, MODE, SETTIDVOL, SETPEEP Medications propofol 88 mg/hr (10/11/192044) dexmedetomidine (PRECEDEX) IV infusion 1.3 mcg/kg/hr (10/12/19 0550) vancomycin 1,500 mg Intravenous Q12H dexamethasone 4 mg Intravenous 4 times per day ipratropium-albuterol 1 ampule Inhalation Q4H chlorhexidine 15 mL Mouth/Throat BID famotidine (PEPCID) injection 20 mg Intravenous BID QUEtiapine 25 mg Oral BID sodium chloride flush 10 mL Intravenous 2 times per day enoxaparin 40 mg Subcutaneous Daily IV Diet/Nutrition DIET TUBE FEED CONTINUOUS/CYCLIC NPO; STANDARD WITHOUT FIBER (VITALS); Orogastric; Continuous; 20; 55 Exam VITALS height is 5' 9 (1.753 m) and weight is 270 lb (122.5 kg). Her axillary temperature is 98.8 F (37.1C). Her blood pressure is 149/75 (abnormal) and her pulse is 55. Her respiration is 20 and oxygen saturation is 94%. Constitutional - appears comfortable, intubated Nods head on questioning HEENT - Life support devices in place (ET, OG),normocephalic, atraumatic. PERRLA Lungs - Diminished breathe sounds at the bases, Bilateral rales Cardiovascular - Heart sounds are normal. Normal rate and rhythm regular, no murmur, gallop or rub. Abdomen - soft, nontender, nondistended, no masses or organomegaly Skin - no bruising or bleeding Extremities - no cyanosis, clubbing or edema FLIGHT OPERATIONS COORDINATOR- intubated, mechanically ventilated awake currently Lab Results CBC Lab Results Component Value Date WBC 9.4 10/12/2019 WBC 10.4 04/28/2015 RBC 3.36 10/12/2019 HGB 10.7 10/12/2019 HCT 32.7 10/12/2019 PLT 571 10/12/2019 MCV 97.2 10/12/2019 MCH 31.9 10/12/2019 MCHC 32.9 10/12/2019 RDW 15.2 10/12/2019 SEGSPCT 70.0% 04/28/2015 LYMPHOPCT 9.3 10/12/2019 MONOPCT 5.9 10/12/2019 MONOPCT 5.1% 04/28/2015 BASOPCT 0.3 10/12/2019 BASOPCT 1.0% 04/28/2015 MONOSABS 0.6 10/12/2019 MONOSABS 0.5 04/28/2015 LYMPHSABS 0.9 10/12/2019 LYMPHSABS 2.5 04/28/2015 EOSABS 0.0 10/12/2019 EOSABS 0.0 04/28/2015 BASOSABS 0.0 10/12/2019 BASOSABS 0.1 04/28/2015 BMP Lab Results Component Value Date NA 140 10/12/2019 K 3.7 10/12/2019 CL 103 10/12/2019 CO2 29 10/12/2019 BUN 21 10/12/2019 CREATININE 0.48 10/12/2019 GLUCOSE 168 10/12/2019 CALCIUM 8.0 10/12/2019 IONCA 3.50 10/05/2019 LFTS Lab Results Component Value Date ALKPHOS 157 10/12/2019 ALT 61 10/12/2019 AST 69 10/12/2019 PROT 6.9 10/12/2019 BILITOT 0.5 10/12/2019 BILIDIR 0.0 10/06/2019 LABALBU 3.3 10/12/2019 INR No results found for: INR, PROTIME APTT No results for input(s): APTT in the last 72 hours. Lactic Acid Lab Results Component Value Date LACTA 1.3 10/03/2019 BNP No results for input(s): BNP in the last 72 hours. Cultures Sputum staph/ corynebacterium Radiology CXR Reviewed (See actual reports for details) ASSESSMENT AND PLANS # Acute respiratory failure/ re intubation/ Stridor/ bilateral pneumonia likely aspiration/ MSSA/ Corynebacterium Still having moderate amount of pulmonary secretions Cxray minimal improvement ABG relative moderate hypoxemia, Po2/Fio2 ratio 160 S/p Bronchoscopy Leak test did ok Decadron IV for stridor Needed to be very cautious in extubation because of failed extubation days ago # Acute Encephalopathy sec to drug overdose amitriptyline/ Lyrica, Clinically appears to be improving Following simple commands Neurology check up CT Head negative Supportive care # ? Intentional drug overdose/ Hx of anxiety/ depression One to one observation Psychiatry consult once off vent May need in patient psych treatment # DVT/ GI prophylaxis / FEN On lovenox,/ pepcid/ tube feeding/ replete lytes Tolerating well # Hx of Multiple Sclerosis PT/OT # Hx of HTN/ GERD BP stable currently Resume Pepcid Case discussed with nurse Questions and concerns addressed. Total critical care time caring for this patient with life threatening, unstable organ failure, including direct patient contact, management of life support systems, review of data including imaging and labs, discussions with other team members and physicians at least 30 minutes so far today, excluding procedures. * Shaheen Man DO - 10/11/2019 12:17 PM EDT Palliative Care Initial Consult Chief Complaint: Charlie Nguyen is a 64 y.o. female with chief complaint of altered mental status. Assessment/Plan Active Hospital Problems Diagnosis Date Noted Acute respiratory failure with hypoxia (HCC) [J96.01] Intentional drug overdose (HCC) [T50.902A] 10/03/2019 Drug overdose, multiple drugs, accidental or unintentional, initial encounter [T50.911A] 10/03/2019 Goals of care -patient lacks capacity for medical decision-making due to intubation/encephalopathy -surrogate decision-maker is legally her ( 5-6 years), Brayden Nguyen ([phone]). She has 2 living adult children (Vicente and Art) who are involved, but are NOT legally decision-makers -see consult note 10/10/19 -updated family via phone that patient would not be extubated today. Will follow-up tomorrow by phone. Acute respiratory failure with hypoxia -2/2 encephalopathy/drug overdose/pneumonia -SARS-CoV-2 negative -intubated 10/03/19-10/09/19, failed HFNC/NIV, reintubated 10/09/19 -passed SBT today, but not extubated due to secretions Acute metabolic encephalopathy -multifacotiral MSSA pneumonia -s/p bronch 10/06/19 due to copious secretions -IV abx per primary Intentional drug overdose -reported in chart -psych consult pending Depression/anxiety -longstanding issue per family -psych consult pending Multiple sclerosis/debility -follows with the [facility] as outpatient -uses wheelchair at baseline -unclear status, may need records if patient stabilizes and tolerates extubation Palliative care encounter -Full code -goals of care -will follow Greater than 51% of time spent, total 25 minutes in counseling and coordination of care at the bedside regarding Goals of Care and See Above Discharge planning: to be determined Patient meets criteria for general inpatient hospice care including the following: N/A- Palliative Care Patient Referrals to: none today Discussed patient and the plan of care with the other IDT membersof Palliative Care, and with Primary Attending, Family and Floor Nurse Subjective: Hospital days prior to consult: 7 Subjective/Events 64 y.o. female who presented with altered mental status. Admitted to ICU for respiratory failure requiring intubation due to encephalopathy from drug overdose. Consultation requested for Symptom management and Family support. 0 ER visits and 0 hospitalizations in the last 12 months. Interval history -no overnight events -patient remains intubated -no history obtained from patient -tolerated SBT, copious secretions Goals of care:To Be Determined Advance Directives: full code Surrogate: Spouse Prognosis: unknown Spiritualassessment: No spiritual distress identified Bereavement and grief: To Be Determined ROS: See palliative care ROS/ESAS below; Detail ROS unable to obtain due to patient's mental status Review of Systems Social history: [place] status: no Marital status: , 5-6 years Children: 3 children (1 daughter, 1 living son, 1 living daughter) Living status: alone Work history: Family Meeting: Participants:No Family Meeting Held Today Family meeting was held to discuss: Objective: Physical Exam BP (!) 155/82 Pulse 54 Temp 98.6 F (37 C) (Axillary) Resp 20 Ht 5' 9 (1.753 m) Wt 270 lb(122.5 kg) SpO2 98% BMI 39.87 kg/m Physical Exam Vitals signs reviewed. Constitutional: General: She is not in acute distress. Appearance: She is not diaphoretic. Comments: sedated HENT: Head: Normocephalic and atraumatic. Mouth/Throat: Comments: +ETT Eyes: General: Right eye: No discharge. Left eye: No discharge. Neck: Vascular: No JVD. Pulmonary: Effort: Pulmonary effort is normal. No respiratory distress. Breath sounds: No stridor. Musculoskeletal: General: No deformity (b/l LEs). Skin: General: Skin is warm and dry. Psychiatric: Comments: No anxiety or agitation [place] Symptom Assessment Score [place] Score Pain Score See FLACC Tiredness Score 10 Nausea Score 0 Depression Score 0 Anxiety Score 0 Drowsiness Score 10 Anorexia Score (0= eating well, 10= not eating) 10 Wellbeing Score (10= worst sense of well-being) 9 Constipation 0 Dyspnea Score (0= no shortness of breath) 10 Assessed by: provider. CurrentMedications: Inpatient medications reviewed: yes 24 Hour PRN Meds: no PRN medications in 24 hours Results/Verification of Data Review Objective data reviewed: labs, images, records, medication use, vitals and chart Data in Support of Terminal Illness: Charlie Nguyen is a 64 y.o. female who was seen for [id number] on 10/10/19 who is hospice appropriate with an expected prognosis of 6 months or less due to the following: Not applicable Write hospice narrative \ * Devin Levine RCP - 10/11/2019 8:20 AM EDT [facility] Respiratory Care Department Progress Note Spontaneous Breathing Trial (SBT) Start: 2-3 min to Stabilize After 15 min After 30 min HR 56 62 SpO2 (%) 99 100 RR 20 21 VT (L) 400 449 Total RSBI (RR/VT in Liters) 50 47 Pass SBT (RSBI must be?105 to pass) NA NA yes TC trial started at 0818 Comments (state reason if SBT failed): Additional data if requested: NIF = VC = Name of physician results were reported to: Thank you for involving Respiratory in the care of this patient, * Clinton Deleon MD - 10/11/2019 6:38 AM EDT Critical Care Note: Patient - Charlie Nguyen, Age - 64 y.o. - 1955 Room [facility] - [id number] [id number] Date of Admission - 10/03/2019 7:34 AM Hospital Day - 8 HPI/Subjective: 10/10 Patient remained intubated, mechanically ventilated She is awake this morning Afebrile ABG showed relative hypoxemia, PO2 on FiO2 .5 PO2 79 Patient was placed on SBT did ok, however having large amount of thick secretions 10/09 Admitted with altered mental status allegedly sec to drug overdose, was intubated in ER, patient was extubated yesterday morning however got re intubated again sec to stridor/ resp failure Cxray showed bilateral infiltrate/ effusion Sputum grew staph/ corynebacterium , on vancomycin as per ID stewardship Active Hospital Problem List Active Hospital Problems Diagnosis Date Noted Acute respiratory failure with hypoxia (HCC) [J96.01] Intentional drug overdose (HCC) [T50.902A] 10/03/2019 Drug overdose, multiple drugs, accidental or unintentional, initial encounter [T50.911A] 10/03/2019 All other systems reviewed Vitals height is 5' 9 (1.753 m) and weight is 270 lb (122.5 kg). Her axillary temperature is 98.9 F (37.2C). Her blood pressure is 151/77 (abnormal) and her pulse is 62. Her respiration is 19 and oxygen saturation is 96%. Range Data Temperature Range: Temp: 98.9 F (37.2 C)Temp Av.1 F (37.3 C) Min: 98.9 F (37.2 C) Max: 99.2 F (37.3 C) BP Range: Systolic (24hrs), Av , Min:115 , Max:165 Diastolic (24hrs), Av, Min:55, Max:88 Pulse Range: Pulse Av.6 Min: 56 Max: 70 Respiration Range: Resp Av.3 Min: 13 Max: 26SpO2: 96 % 24HR Pulse Ox Range: SpO2 Av % Min: 92 % Max: 100 %O2 Flow Rate (L/min): 40 L/min Patient Vitals for the past 8 hrs: BP Temp Temp src Pulse Resp SpO2 10/11/19 0520 62 96 % 10/11/19 0421 19 98 % 10/11/19 0302 (!) 151/77 58 17 99 % 10/11/19 0202 (!) 159/85 64 13 98 % 10/11/19 0102 (!) 153/77 56 19 99 % 10/11/19 0018 59 16 99 % 10/11/19 0002 (!) 159/80 63 17 98 % 10/10/19 2302 (!) 162/80 98.9 F (37.2 C) Axillary 60 18 98 % I/O Intake/Output Summary (Last 24 hours) at 10/11/2019 0638 Last data filed at 10/10/2019 2230 Gross per 24 hour Intake 644 ml Output 1455 ml Net -811 ml I/O last 3 completed shifts: In: 999 [I.V.:749; IV Piggyback:250] Out: 1780 [Urine:1755; Emesis/NG output:25] No data found. Drains/Tubes Outputs reviewed Lines, ET tube, Devices ETTube Day - re intubation 10/08 Lines - RT IJ 10/07 Mechanical Ventilation Data Vent Information Skin Assessment: Clean, dry, & intact Equipment ID: [id number] Equipment Changed: Other (comment) Vent Type: 840 Vent Mode: AC/VC+ Vt Ordered: 400 mL Rate Set: 14 bmp Peak Flow: 44 L/min Pressure Support: 0 cmH20 FiO2 : 50 % SpO2: 96 % SpO2/FiO2 ratio: 196 PaO2/FiO2 ratio: 1.29 Sensitivity: 3 PEEP/CPAP: 8 I Time/ I Time %: 0.9 s Humidification Source: Heated wire Humidification Temp: 37 Humidification Temp Measured: 36.9 Circuit Condensation: Drained Nitric Oxide/Epoprostenol In Use?: No Additional Respiratory Assessments Pulse: 62 Resp: 19 SpO2: 96 % Position: Semi-Gloria's Humidification Source: Heated wire Humidification Temp: 37 Circuit Condensation: Drained Oral Care Completed?: No Oral Care: Mouth swabbed, Mouth moisturizer, Mouth suctioned Subglottic Suction Done?: Yes Cuff Pressure (cm H2O): 31 cm H2O ABG Lab Results Component Value Date PH 7.42 10/05/2019 No results found for: IFIO2, MODE, SETTIDVOL, SETPEEP Medications propofol 50 mg/hr (10/10/19 1753) dexmedetomidine (PRECEDEX) IV infusion 1.3 mcg/kg/hr (10/11/19 0409) vancomycin 1,500 mg Intravenous Q12H dexamethasone 4 mg Intravenous 4 times per day ipratropium-albuterol 1 ampule Inhalation Q4H chlorhexidine 15 mL Mouth/Throat BID famotidine (PEPCID) injection 20 mg Intravenous BID QUEtiapine 25 mg Oral BID sodium chloride flush 10 mL Intravenous 2 times per day enoxaparin 40 mg Subcutaneous Daily IV Diet/Nutrition DIET TUBE FEED CONTINUOUS/CYCLIC NPO; STANDARD WITHOUT FIBER (VITALS); Orogastric; Continuous; 20; 55 Exam VITALS height is 5' 9 (1.753 m) and weight is 270 lb (122.5 kg). Her axillary temperature is 98.9 F (37.2C). Her blood pressure is 151/77 (abnormal) and her pulse is 62. Her respiration is 19 and oxygen saturation is 96%. Constitutional - on Vent, awake, follows simple commands HEENT - Life support devices in place (ET, OG),normocephalic, atraumatic. PERRLA Lungs - Diminished breathe sounds at the bases, Bilateral rales Cardiovascular - Heart sounds are normal. Normal rate and rhythm regular, no murmur, gallop or rub. Abdomen - soft, nontender, nondistended, no masses or organomegaly Skin - no bruising or bleeding Extremities - no cyanosis, clubbing or edema FLIGHT OPERATIONS COORDINATOR- intubated, mechanically ventilated Lab Results CBC Lab Results Component Value Date WBC 8.2 10/11/2019 WBC 10.4 04/28/2015 RBC 3.10 10/11/2019 HGB 9.8 10/11/2019 HCT 30.1 10/11/2019 PLT 494 10/11/2019 MCV 97.1 10/11/2019 MCH 31.8 10/11/2019 MCHC 32.7 10/11/2019 RDW 15.2 10/11/2019 SEGSPCT 70.0% 04/28/2015 LYMPHOPCT 14.1 10/11/2019 MONOPCT 9.9 10/11/2019 MONOPCT 5.1% 04/28/2015 BASOPCT 0.4 10/11/2019 BASOPCT 1.0% 04/28/2015 MONOSABS 0.8 10/11/2019 MONOSABS 0.5 04/28/2015 LYMPHSABS 1.2 10/11/2019 LYMPHSABS 2.5 04/28/2015 EOSABS 0.0 10/11/2019 EOSABS 0.0 04/28/2015 BASOSABS 0.0 10/11/2019 BASOSABS 0.1 04/28/2015 BMP Lab Results Component Value Date NA 140 10/11/2019 K 3.7 10/11/2019 CL 103 10/11/2019 CO2 29 10/11/2019 BUN 16 10/11/2019 CREATININE 0.50 10/11/2019 GLUCOSE 144 10/11/2019 CALCIUM 8.1 10/11/2019 IONCA 3.50 10/05/2019 LFTS Lab Results Component Value Date ALKPHOS 163 10/11/2019 ALT 36 10/11/2019 AST 46 10/11/2019 PROT 6.5 10/11/2019 BILITOT 0.5 10/11/2019 BILIDIR 0.0 10/06/2019 LABALBU 3.1 10/11/2019 INR No results found for: INR, PROTIME APTT No results for input(s): APTT in the last 72 hours. Lactic Acid Lab Results Component Value Date LACTA 1.3 10/03/2019 BNP No results for input(s): BNP in the last 72 hours. Cultures Sputum staph/ corynebacterium Radiology CXR Reviewed (See actual reports for details) ASSESSMENT AND PLANS # Acute respiratory failure/ re intubation/ Stridor/ bilateral pneumonia likely aspiration/ MSSA/ Corynebacterium Having moderate amount of pulmonary secretions Cxray mild improvement in bibasilar infiltrate/ mild effusion ABG still showing relative moderate hypoxemia S/p Bronchoscopy Leak test before extubation Decadron IV for stridor ENT consult, discussed with Will hold extubation today sec to moderate secretion and relative hypoxemia # Acute Encephalopathy sec to drug overdose amitriptyline/ Lyrica, improving Neurology check up CT Head negative Supportive care # ? Intentional drug overdose/ Hx of anxiety/ depression One to one observation Psychiatry consult once off vent May need in patient psych treatment # DVT/ GI prophylaxis / FEN On lovenox,/ pepcid/ tube feeding/ replete lytes # Hx of Multiple Sclerosis PT/OT # Hx of HTN/ GERD BP stable currently Resume Pepcid Weaning strategy was discussed with Resp therapy Case discussed with nurse Questions and concerns addressed. Total critical care time caring for this patient with life threatening, unstable organ failure, including direct patient contact, management of life support systems, review of data including imaging and labs, discussions with other team members and physicians at least 32 minutes so far today, excluding procedures. * Louise Jya RCP - 10/11/2019 5:25 AM EDT 10/11/19 05 Spontaneous Breathing Trial (SBT) RT Doc Contraindications to SBT? None (failed extubation 10/08; FiO2 borderline) Rate Measured 17 br/min Pulse 62 SpO2 96 % * Dulce Maria Chawla, JULIA, LD - 10/10/2019 12:46 PM EDT Nutrition Assessment Type and Reason for Visit: Reassess(pt required reintubation) Nutrition Recommendations: 1)suggest to resume STANDARD LOW FIBER- VITAL HI PRO with goal rate of 55 cc/hr(1320 mike,115 gm pro,1103 cc free water for 11 mike/kg cbw ,1.7 gm pro/kg ibw or .9 gm pro/kg cbw.- is 1 mike/cc .on very low rate diprovan- no contributory 2)suggest speech therapy evaluation post extubation 3)suggest daily wts 4)Monitor labs, status, intakes, wts, to reassess. follow up at least weekly. Nutrition Assessment: 64 yo female with hx htn, depression ,anxiety, gerd,ms tobacco abuse - adm with altered ms= drug od . extubated 10/08 but required reintubation Malnutrition Assessment: Malnutrition Status: At risk for malnutrition Context: Acute illness or injury Findings of the 6 clinical characteristics of malnutrition (Minimum of 2 out of 6 clinical characteristics is required to make the diagnosis of moderate or severe Protein Calorie Malnutrition based on AND/ASPEN Guidelines): 1. Energy Intake-Less than or equal to 50% of estimated energy requirement, Greater than or equal to 5 days(~ 6 days) 2. Weight Loss- , 3. Fat Loss-Unable to assess, 4. Muscle Loss-Unable to assess, 5. 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 Signs and symptoms: as evidenced by NPO status due to medical condition, Intubation, Localized orgeneralized fluid accumulation, Diet history of poor intake, BMI( was on tf then extubated) Objective Information: Nutrition-Focused Physical Findings: 10/07 +BMlow dose diprovan at 4 cc/hr for 96 cc or 106 mike, jacinto 14,+4.7 liters ,+2 pitting ble, +2 upper edema; glu 126, ca 7.8, alb 3.2, corrected ca 8.2. TF TORESTART TODAY(10/08 got albumin) Wound Type: Multiple( jacinto 14 mult scattered abrasions) Current Nutrition Therapies: Oral Diet Orders: NPO Oral Diet intake: NPO Oral Nutrition Supplement (ONS) Orders: None ONS intake: NPO Anthropometric Measures: Ht: 5' 9 (175.3 cm) Current Body Wt: 270 lb (122.5 kg)(no new wt) Admission Body Wt: Usual Body Wt: % Weight Change: , was 150 lbs in 2015; 10/2018 was 240 lbs. incr 30 lbs in 11 mo? [place] Body Wt: 145 lb (65.8 kg), % [place] Body 186 Adjusted Body Wt: , body weight adjusted for BMI Classification: BMI 35.0 - 39.9 Obese Class II(39.9) Nutrition Interventions: Continue NPO, Start Tube Feeding(restart ) Continued Inpatient Monitoring, Speech Therapy Nutrition Evaluation: Evaluation: Progressing toward goals(TF to restart today as was on previously) Goals: pt will receive ,tolerate adequate nutrition with safe swallow- Monitoring: Nutrition Progression, TF Intake, TF Tolerance, Skin Integrity, I&O, Weight, MentalStatus/Confusion, Pertinent Labs, Monitor Hemodynamic Status, Monitor Bowel Function Contact Number: [phone] * Toyin Urias RCP - 10/10/2019 8:52 AM EDT [facility] Respiratory Care Department Progress Note Spontaneous Breathing Trial (SBT) Start: 2-3 min to Stabilize After 15 min After 30 min HR 63 68 SpO2 (%) 100 96 RR 28 25 VT (L) 492 387 Total RSBI (RR/VT in Liters) 56 64 Pass SBT (RSBI must be?105 to pass) YES NA YES Comments (state reason if SBT failed): Additional data if requested: NIF = VC = Name of physician results were reported to: Thank you for involving Respiratory in the care of this patient, trial. PASSED * Clinton Deleon MD - 10/10/2019 6:50 AM EDT Critical Care Note: Patient - Charlie Nguyen, Age - 64 y.o. - 1955 Room Number - [id number] [facility] [id number] Date of Admission - 10/03/2019 7:34 AM Hospital Day - 7 HPI/Subjective: Admitted with altered mental status allegedly sec to drug overdose, was intubated in ER, patient was extubated yesterday morning however got re intubated again sec to stridor/ resp failure Cxray showed bilateral infiltrate/ effusion Sputum grew staph/ corynebacterium , on vancomycin as per ID stewardship Active Hospital Problem List Active Hospital Problems Diagnosis Date Noted Acute respiratory failure with hypoxia (HCC) [J96.01] Intentional drug overdose (HCC) [T50.902A] 10/03/2019 Drug overdose, multiple drugs, accidental or unintentional, initial encounter [T50.911A] 10/03/2019 All other systems reviewed Vitals height is 5' 9 (1.753 m) and weight is 270 lb (122.5 kg). Her oral temperature is 98.7 F (37.1 C).Her blood pressure is 134/73 and her pulse is 59. Her respiration is 22 and oxygen saturation is 99%. Range Data Temperature Range: Temp: 98.7 F (37.1 C)Temp Av.3 F (34.1 C) Min: 59 F (15 C) Max: 100 F (37.8C) BP Range: Systolic (24hrs), Av , Min:76 , Max:141 Diastolic (24hrs), Av, Min:41, Max:92 Pulse Range: Pulse Av.5 Min: 59 Max: 129 Respiration Range: Resp Av.9 Min: 11 Max: 32SpO2: 99 % 24HR Pulse Ox Range: SpO2 Av.4 % Min: 76 % Max: 100 %O2 Flow Rate (L/min): 40 L/min Patient Vitals for the past 8 hrs: BP Temp Temp src Pulse Resp SpO2 10/10/19 0630 59 99 % 10/10/19 0602 134/73 60 22 98 % 10/10/19 0502 115/63 67 20 96 % 10/10/19 0425 20 97 % 10/10/19 0413 63 24 97 % 10/10/19 0410 23 98 % 10/10/19 0402 137/73 62 23 98 % 10/10/19 0328 62 10/10/19 0327 133/74 98.7 F (37.1 C) Oral 62 23 99 % 10/10/19 0302 136/70 63 21 98 % 10/10/19 0202 121/66 67 23 97 % 10/10/19 0102 (!) 108/59 73 25 93 % 10/10/19 0027 (!) 104/54 75 24 93 % 10/10/19 0018 (!) 108/56 73 23 94 % 10/10/19 0002 132/74 64 22 96 % 10/09/19 2357 61 15 97 % 10/09/19 2302 (!) 140/73 62 22 100 % I/O Intake/Output Summary (Last 24 hours) at 10/10/2019 0651 Last data filed at 10/10/2019 0505 Gross per 24 hour Intake 1247 ml Output 5901 ml Net -4654 ml I/O last 3 completed shifts: In: 1446 [I.V.:352; NG/GT:634; IV Piggyback:460] Out: 6101 [Urine:5601; Emesis/NG output:300; Stool:200] Date 10/10/19 0000 - 10/10/19 2359 Shift 4163-5890 6399-6481 8540-4027 24 Hour Total INTAKE P.O.(mL/kg/hr) 0 0 I.V.(mL/kg) 355(2.9) 355(2.9) Shift Total(mL/kg) 355(2.9) 355(2.9) OUTPUT Urine(mL/kg/hr) 300 300 Emesis/NG output(mL/kg) 25(0.2) 25(0.2) Shift Total(mL/kg) 325(2.7) 325(2.7) Weight (kg) 122.5 122.5 122.5 122.5 No data found. Drains/Tubes Outputs reviewed Lines, ET tube, Devices ETTube Day - re intubation 10/08 Lines - RT IJ 10/07 Mechanical Ventilation Data Vent Information Skin Assessment: Clean, dry, & intact Equipment ID: 11 Equipment Changed: Other (comment) Vent Type: 840 Vent Mode: AC/VC+ Vt Ordered: 365 mL Rate Set: 16 bmp Peak Flow: 42 L/min Pressure Support: 0 cmH20 FiO2 : 50 % SpO2: 99 % SpO2/FiO2 ratio: 194 PaO2/FiO2 ratio: 1.29 Sensitivity: 3 PEEP/CPAP: 8 I Time/ I Time %: 0.9 s Humidification Source: Heated wire Humidification Temp: 37 Humidification Temp Measured: 37 Circuit Condensation: Drained Nitric Oxide/Epoprostenol In Use?: No Additional Respiratory Assessments Pulse: 59 Resp: 22 SpO2: 99 % Position: Semi-Gloria's Humidification Source: Heated wire Humidification Temp: 37 Circuit Condensation: Drained Oral Care Completed?: No Oral Care: Mouthwash, Mouth swabbed, Mouth suctioned Subglottic Suction Done?: Yes Cuff Pressure (cm H2O): 31 cm H2O ABG Lab Results Component Value Date PH 7.42 10/05/2019 No results found for: IFIO2, MODE, SETTIDVOL, SETPEEP Medications propofol 35 mg/hr (10/10/19 0451) dexmedetomidine (PRECEDEX) IV infusion 1.2 mcg/kg/hr (10/10/19 0353) ipratropium-albuterol 1 ampule Inhalation Q4H chlorhexidine 15 mL Mouth/Throat BID famotidine (PEPCID) injection 20 mg Intravenous BID QUEtiapine 25 mg Oral BID ampicillin-sulbactam 3 g Intravenous Q6H sodium chloride flush 10 mL Intravenous 2 times per day enoxaparin 40 mg Subcutaneous Daily IV Diet/Nutrition No diet orders on file Exam VITALS height is 5' 9 (1.753 m) and weight is 270 lb (122.5 kg). Her oral temperature is 98.7 F (37.1 C).Her blood pressure is 134/73 and her pulse is 59. Her respiration is 22 and oxygen saturation is 99%. Constitutional - Sedated on Vent HEENT - Life support devices in place (ET, OG),normocephalic, atraumatic. PERRLA Lungs - Diminished breathe sounds at the bases, Bilateral rales Cardiovascular - Heart sounds are normal. Normal rate and rhythm regular, no murmur, gallop or rub. Abdomen - soft, nontender, nondistended, no masses or organomegaly Skin - no bruising or bleeding Extremities - no cyanosis, clubbing or edema FLIGHT OPERATIONS COORDINATOR- intubated, mechanically ventilated Lab Results CBC Lab Results Component Value Date WBC 9.2 10/10/2019 WBC 10.4 04/28/2015 RBC 3.01 10/10/2019 HGB 9.7 10/10/2019 HCT 29.0 10/10/2019 PLT 380 10/10/2019 MCV 96.6 10/10/2019 MCH 32.1 10/10/2019 MCHC 33.2 10/10/2019 RDW 15.4 10/10/2019 SEGSPCT 70.0% 04/28/2015 LYMPHOPCT 11.4 10/10/2019 MONOPCT 10.7 10/10/2019 MONOPCT 5.1% 04/28/2015 BASOPCT 0.3 10/10/2019 BASOPCT 1.0% 04/28/2015 MONOSABS 1.0 10/10/2019 MONOSABS 0.5 04/28/2015 LYMPHSABS 1.0 10/10/2019 LYMPHSABS 2.5 04/28/2015 EOSABS 0.0 10/10/2019 EOSABS 0.0 04/28/2015 BASOSABS 0.0 10/10/2019 BASOSABS 0.1 04/28/2015 BMP Lab Results Component Value Date NA 140 10/10/2019 K 3.7 10/10/2019 CL 103 10/10/2019 CO2 29 10/10/2019 BUN 15 10/10/2019 CREATININE 0.56 10/10/2019 GLUCOSE 126 10/10/2019 CALCIUM 7.8 10/10/2019 IONCA 3.50 10/05/2019 LFTS Lab Results Component Value Date ALKPHOS 177 10/10/2019 ALT 34 10/10/2019 AST 39 10/10/2019 PROT 6.6 10/10/2019 BILITOT 0.8 10/10/2019 BILIDIR 0.0 10/06/2019 LABALBU 3.2 10/10/2019 INR No results found for: INR, PROTIME APTT No results for input(s): APTT in the last 72 hours. Lactic Acid Lab Results Component Value Date LACTA 1.3 10/03/2019 BNP No results for input(s): BNP in the last 72 hours. Cultures Sputum staph/ corynebacterium Radiology CXR Reviewed (See actual reports for details) ASSESSMENT AND PLANS # Acute respiratory failure/ re intubation/ Stridor/ bilateral pneumonia likely aspiration/ MSSA/ Corynebacterium On vent bundle protocol ABG reviewed compensated, mild relative hypoxemia Antibiotics coverage broadened with Vancomycin S/p Bronchoscopy F/u with Cxray/ ABG SBT as tolerated Leak test before extubation Decadron IV for stridor ENT consult # Acute Encephalopathy sec to drug overdose amitriptyline/ Lyrica Neurology check up CT Head negative Supportive care # ? Intentional drug overdose/ Hx of anxiety/ depression One to one observation Psychiatry consult once off vent May need in patient psych treatment # DVT/ GI prophylaxis / FEN On lovenox,/ pepcid/ tube feeding/ replete lytes # Hx of HTN/ GERD BP stable currently Resume Pepcid Case discussed with nurse Questions and concerns addressed. Total critical care time caring for this patient with life threatening, unstable organ failure, including direct patient contact, management of life support systems, review of data including imaging and labs, discussions with other team members and physicians at least 33 minutes so far today, excluding procedures. * Louise Jay RCP - 10/10/2019 6:33 AM EDT 10/10/19 0630 Spontaneous Breathing Trial (SBT) RT Doc Contraindications to SBT? None Rate Measured 21 br/min Pulse 59 SpO2 99 % * Gabriela Morataya RN - 10/09/2019 1:49 PM EDT Pt intubated at this time. + co2 detected. bilat breath sounds present. Lungs coarse throughout. Bilateral wrist restraints applied. OG placed at 55 cm. Light green drainage noted. Lg amt thick clear/white sputum suctioned via ett. * Gabriela Morataya RN - 10/09/2019 1:[address] Romero @ bedside with RN and RT for intubation. Pt with increased tachypnea/labored breathing with stridor. Increased confusion noted. * Gabriela Morataya RN - 10/09/2019 12:46 PM EDT RT @ bedside to place patient on NIV. Will monitor. * Gabriela Morataya RN - 10/09/2019 12:[address] Romero @ the bedside. Pt with stridor and audible chest congestion. Sats 97% on high flow NC, RR 23. HOB remains elevated. Pt confused to situation. Attempts made to reorient without effect. Seeorders. * Gabriela Morataya RN - 10/09/2019 9:31 AM EDT RT @ bedside; SBT completed. Dr. Romero notified of results by RT. Orders to extubate. RN and RT @bedside; pt extubated at this time. Placed on 6 L NC, sats 90-92%. RR 26. Voice hoarse. Pt orientedto self only. Reoriented to place and time. Weak, moist, nonproductive cough noted. Pt HOB [id number] degrees and cough/deep breathing encouraged. Bilateral soft wrist restraints removed. OG discontinued. Will continue to monitor. * Kimberli Delvalle RCP - 10/09/2019 8:57 AM EDT [facility] Respiratory Care Department Progress Note Spontaneous Breathing Trial (SBT) Start: 2-3 min to Stabilize After 15 min After 30 min HR 90 103 102 SpO2 (%) 94 92 92 RR 28 30 28 VT (L) 542 543 577 Total RSBI (RR/VT in Liters) 52 55 48.5 Pass SBT (RSBI must be?105 to pass) NA NA Yes Comments (state reason if SBT failed): Additional data if requested: NIF = VC = Name of physician results were reported to: Dr Buckley Thank you for involving Respiratory in the care of this patient, * Des Romero MD - 10/09/2019 7:09 AM EDT Critical Care Note: [facility], Pulmonary Critical Care and Sleep Medicine [address] [place] [id number] Patient - Charlie Nguyen, Age - 64 y.o. - 1955 Room Number - [id number] [facility] [id number] [id number] Date of Admission - 10/03/2019 7:34 AM Hospital Day - 6 HPI/Subjective: On Precedex infusion, awake eyes are open follow simple commands Active Hospital Problem List Active Hospital Problems Diagnosis Date Noted Acute respiratory failure with hypoxia (HCC) [J96.01] Intentional drug overdose (HCC) [T50.902A] 10/03/2019 Drug overdose, multiple drugs, accidental or unintentional, initial encounter [T50.911A] 10/03/2019 Vitals height is 5' 9 (1.753 m) and weight is 270 lb (122.5 kg). Her oral temperature is 98.8 F (37.1 C).Her blood pressure is 105/53 (abnormal) and her pulse is 75. Her respiration is 18 and oxygen saturation is 94%. Range Data Temperature Range: Temp: 98.8 F (37.1 C)Temp Av.1 F (37.3 C) Min: 98.8 F (37.1 C) Max: 99.6 F (37.6 C) BP Range: Systolic (24hrs), Av , Min:66 , Max:132 Diastolic (24hrs), Av, Min:37, Max:96 Pulse Range: Pulse Av.5 Min: 57 Max: 113 Respiration Range: Resp Av.3 Min: 15 Max: 41SpO2: 94 % 24HR Pulse Ox Range: SpO2 Av.8 % Min: 93 % Max: 100 %O2 Flow Rate (L/min): 6 L/min Patient Vitals for the past 8 hrs: BP Pulse Resp SpO2 10/09/19 0610 75 18 94 % 10/09/19 0535 81 28 95 % 10/09/19 0503 24 98 % 10/09/19 0454 80 27 95 % 10/09/19 0402 (!) 105/53 85 (!) 34 94 % 10/09/19 0302 104/60 87 (!) 34 93 % 10/09/19 0202 110/69 91 25 95 % 10/09/19 0102 108/68 96 15 93 % 10/09/19 0009 99 26 95 % 10/09/19 0002 126/73 97 29 95 % I/O Intake/Output Summary (Last 24 hours) at 10/09/2019 0710 Last data filed at 10/08/2019 2325 Gross per 24 hour Intake 1867.5 ml Output 2125 ml Net -257.5 ml I/O last 3 completed shifts: In: 1867.5 [I.V.:477.5; NG/GT:790; IV Piggyback:600] Out: 2124 [Urine:2124] No data found. Drains/Tubes Outputs reviewed Lines, ET tube, Devices ETTube Day - 6 Lines - right IJ central line Mechanical Ventilation Data Vent Information Skin Assessment: Clean, dry, & intact Equipment ID: 13 Equipment Changed: Humidification Vent Type: 840 Vent Mode: AC/VC+ Vt Ordered: 350 mL Rate Set: 14 bmp Peak Flow: 42 L/min Pressure Support: 0 cmH20 FiO2 : 40 % SpO2: 94 % SpO2/FiO2 ratio: 235 PaO2/FiO2 ratio: 222.5 Sensitivity: 3 PEEP/CPAP: 8 I Time/ I Time %: 0.9 s Humidification Source: Heated wire Humidification Temp: 36.8 Humidification Temp Measured: 37.4 Circuit Condensation: Drained Nitric Oxide/Epoprostenol In Use?: No Additional Respiratory Assessments Pulse: 75 Resp: 18 SpO2: 94 % Position: Semi-Gloria's Humidification Source: Heated wire Humidification Temp: 36.8 Circuit Condensation: Drained Oral Care Completed?: No Oral Care: Mouth swabbed, Mouth suctioned Subglottic Suction Done?: Yes Cuff Pressure (cm H2O): 24 cm H2O ABG Lab Results Component Value Date PH 7.42 10/05/2019 Medications dexmedetomidine (PRECEDEX) IV infusion 1.4 mcg/kg/hr (10/09/19 0115) ipratropium-albuterol 1 ampule Inhalation Q4H haloperidol lactate 5 mg Intravenous Once chlorhexidine 15 mL Mouth/Throat BID sodium chloride (Inhalant) 2 mL Nebulization TID ampicillin-sulbactam 3 g Intravenous Q6H sodium chloride flush 10 mL Intravenous 2 times per day enoxaparin 40 mg Subcutaneous Daily famotidine (PEPCID) injection 20 mg Intravenous BID IV Diet/Nutrition DIET TUBE FEED CONTINUOUS/CYCLIC NPO; STANDARD WITHOUT FIBER; Orogastric; Continuous; 20; 55 Exam VITALS height is 5' 9 (1.753 m) and weight is 270 lb (122.5 kg). Her oral temperature is 98.8 F (37.1 C).Her blood pressure is 105/53 (abnormal) and her pulse is 75. Her respiration is 18 and oxygen saturation is 94%. Constitutional - Sedated on Vent HEENT - Life support devices in place (ET, OG),normocephalic, atraumatic. PERRLA Lungs - Diminished breathe sounds at the bases, no obvious wheezing or crackles in the anterior hendrix.. Cardiovascular - Heart sounds are normal. Normal rate and rhythm regular, no murmur, gallop or rub. Abdomen - soft, nontender, nondistended, no masses or organomegaly Skin - no bruising or bleeding Extremities - no cyanosis, clubbing or edema Lab Results CBC Lab Results Component Value Date WBC 11.5 10/09/2019 WBC 10.4 04/28/2015 RBC 3.44 10/09/2019 HGB 10.8 10/09/2019 HCT 33.0 10/09/2019 PLT 346 10/09/2019 MCV 96.0 10/09/2019 MCH 31.5 10/09/2019 MCHC 32.8 10/09/2019 RDW 14.8 10/09/2019 SEGSPCT 70.0% 04/28/2015 LYMPHOPCT 9.8 10/09/2019 MONOPCT 10.3 10/09/2019 MONOPCT 5.1% 04/28/2015 BASOPCT 0.6 10/09/2019 BASOPCT 1.0% 04/28/2015 MONOSABS 1.2 10/09/2019 MONOSABS 0.5 04/28/2015 LYMPHSABS 1.1 10/09/2019 LYMPHSABS 2.5 04/28/2015 EOSABS 0.2 10/09/2019 EOSABS 0.0 04/28/2015 BASOSABS 0.1 10/09/2019 BASOSABS 0.1 04/28/2015 BMP Lab Results Component Value Date NA 137 10/09/2019 K 4.0 10/09/2019 CL 104 10/09/2019 CO2 27 10/09/2019 BUN 14 10/09/2019 CREATININE 0.54 10/09/2019 GLUCOSE 124 10/09/2019 CALCIUM 7.8 10/09/2019 IONCA 3.50 10/05/2019 LFTS Lab Results Component Value Date ALKPHOS 132 10/06/2019 ALT 14 10/06/2019 AST 26 10/06/2019 PROT 6.2 10/06/2019 BILITOT 1.0 10/06/2019 BILIDIR 0.0 10/06/2019 LABALBU 2.8 10/06/2019 Lactic Acid Lab Results Component Value Date LACTA 1.3 10/03/2019 Radiology CXR 10/09/2019 Reviewed (See actual reports for details) ASSESSMENT AND PLANS Acute respiratory failure, patient intubated due to inability to protect airway continue ventilatory support -Extubated after a successful SBT per protocol-post extubation needed noted to have hypoxemia start on high flow oxygen check blood gas and couple of hours to make sure she doesn't retain CO2 in case she retains CO2 consider noninvasive ventilation Acute encephalopathy related to multidrug overdose, mental status is improving MSSA pneumonia with a dense consolidation in the right lower lobe status post bronchoscopy, continue IV antibiotics Polypharmacy overdose combination of amitriptyline and Lyrica. History of hypertension blood pressure is stable History of gastroesophageal reflux disease PPI History anxiety and depression-needs psych consult once patient is extubated- prn ativan Wean oxygen as tolerated. Keep O2 sat 90-92% Stress ulcer prophylaxis Use replacement protocols DVT prophylaxis Patient was reintubated for respiratory distress, Placed back on mechanical ventilation check arterial blood gas in 1 hour Case discussed with nurse and patient. Questions and concerns addressed. Total critical care time caring for this patient with life threatening, unstable organ failure, including direct patient contact, management of life support systems, review of data including imaging and labs, discussions with other team members and physicians at least 35 minutes so far today, excluding procedures. * Fernandez Pineda RCP - 10/09/2019 5:36 AM EDT 10/09/19 0535 Spontaneous Breathing Trial (SBT) RT Doc Contraindications to SBT? None * Kaity Goodrich RCP - 10/08/2019 1:42 PM EDT [facility] Respiratory Care Department Progress Note Spontaneous Breathing Trial (SBT) Start: 2-3 min to Stabilize After 15 min After 30 min HR 72 90 SpO2 (%) 98 97 RR 37 42 VT (L) 338 352 Total RSBI (RR/VT in Liters) 104 137 Pass SBT (RSBI must be?105 to pass) NA NA NO Comments (state reason if SBT failed): Patient increase RR amd RSBI 137 Additional data if requested: NIF = VC = Name of physician results were reported to: Dr. Romero Thank you for involving Respiratory in the care of this patient, * Des Romero MD - 10/08/2019 9:51 AM EDT Critical Care Note: [facility], Pulmonary Critical Care and Sleep Medicine [address] [place] [address] Patient - Charlie Nguyen, Age - 64 y.o. - 1955 Room Number - [id number] [facility] - [id number] [facility] # - [id number] Date of Admission - 10/03/2019 7:34 AM Hospital Day - 5 HPI/Subjective: Intubated, sedated appears to be comfortable on the ventilator Active Hospital Problem List Active Hospital Problems Diagnosis Date Noted Intentional drug overdose (HCC) [T50.902A] 10/03/2019 Drug overdose, multiple drugs, accidental or unintentional, initial encounter [T50.911A] 10/03/2019 height is 5' 9 (1.753 m) and weight is 270 lb (122.5 kg). Her oral temperature is 98.8 F (37.1 C).Her blood pressure is 116/65 and her pulse is 75. Her respiration is 27 and oxygen saturation is 98%. Range Data Temperature Range: Temp: 98.8 F (37.1 C)Temp Av.2 F (37.3 C) Min: 98.7 F (37.1 C) Max: 99.6 F (37.6 C) BP Range: Systolic (24hrs), Av , Min:109 , Max:143 Diastolic (24hrs), Av, Min:65, Max:89 Pulse Range: Pulse Av Min: 61 Max: 90 Respiration Range: Resp Av.8 Min: 18 Max: 31SpO2: 98 % 24HR Pulse Ox Range: SpO2 Av.1 % Min: 96 % Max: 98 %O2 Flow Rate (L/min): 6 L/min Patient Vitals for the past 8 hrs: BP Temp Temp src Pulse Resp SpO2 10/08/19 0848 75 27 98 % 10/08/19 0802 116/65 73 25 98 % 10/08/19 0702 109/71 98.8 F (37.1 C) Oral 75 28 98 % 10/08/19 0602 124/74 73 (!) 31 96 % 10/08/19 0507 78 20 97 % 10/08/19 0502 122/74 79 28 96 % 10/08/19 0402 121/71 71 30 97 % 10/08/19 0302 113/69 74 (!) 31 97 % 10/08/19 0202 109/65 61 28 98 % I/O Intake/Output Summary (Last 24 hours) at 10/08/2019 0951 Last data filed at 10/08/2019 0645 Gross per 24 hour Intake 2952 ml Output 2420 ml Net 532 ml I/O last 3 completed shifts: In: 3052 [I.V.:785; NG/GT:1305; IV Piggyback:962] Out: 2460 [Urine:2460] Date 10/08/19 - 10/08/19 235 Shift 4251-4330 1424-6004 1258-9828 24 Hour Total INTAKE I.V.(mL/kg) 316(2.6) 316(2.6) NG/GT(mL/kg) 723(5.9) 723(5.9) IV Piggyback(mL/kg) 562(4.6) 562(4.6) Shift Total(mL/kg) 1601(13.1) 1601(13.1) OUTPUT Urine(mL/kg/hr) 1000(1) 1000 Shift Total(mL/kg) 1000(8.2) 1000(8.2) Weight (kg) 122.5 122.5 122.5 122.5 No data found. Drains/Tubes Outputs reviewed Lines, ET tube, Devices ETTube Day - 5 Lines - NONE Mechanical Ventilation Data Vent Information Skin Assessment: Clean, dry, & intact Equipment ID: [id number] Equipment Changed: Humidification Vent Type: 840 Vent Mode: AC/VC+ Vt Ordered: 350 mL Rate Set: 14 bmp Pressure Support: 0 cmH20 FiO2 : 50 % SpO2: 98 % SpO2/FiO2 ratio: 196 PaO2/FiO2 ratio: 129 Sensitivity: 3 PEEP/CPAP: 8 I Time/ I Time %: 0.9 s Humidification Source: Heated wire Humidification Temp: 36.7 Humidification Temp Measured: 36.7 Circuit Condensation: Drained Nitric Oxide/Epoprostenol In Use?: No Additional Respiratory Assessments Pulse: 75 Resp: 27 SpO2: 98 % Position: Semi-Gloria's Humidification Source: Heated wire Humidification Temp: 36.7 Circuit Condensation: Drained Oral Care Completed?: No Oral Care: Mouth swabbed, Mouth suctioned Subglottic Suction Done?: Yes Cuff Pressure (cm H2O): 24 cm H2O ABG Lab Results Component Value Date PH 7.42 10/05/2019 No results found for: IFIO2, MODE, SETTIDVOL, SETPEEP Medications dexmedetomidine (PRECEDEX) IV infusion 1.3 mcg/kg/hr (10/08/19 7094) chlorhexidine 15 mL Mouth/Throat BID ampicillin-sulbactam 3 g Intravenous Q6H sodium chloride flush 10 mL Intravenous 2 times per day enoxaparin 40 mg Subcutaneous Daily famotidine (PEPCID) injection 20 mg Intravenous BID IV Diet/Nutrition DIET TUBE FEED CONTINUOUS/CYCLIC NPO; STANDARD WITHOUT FIBER; Orogastric; Continuous; 20; 55 Exam VITALS height is 5' 9 (1.753 m) and weight is 270 lb (122.5 kg). Her oral temperature is 98.8 F (37.1 C).Her blood pressure is 116/65 and her pulse is 75. Her respiration is 27 and oxygen saturation is 98%. Constitutional - Sedated on Vent HEENT - Life support devices in place (ET, OG),normocephalic, atraumatic. PERRLA Lungs - Diminished breathe sounds at the bases, no obvious wheezing or crackles in the anterior hendrix.. Cardiovascular - Heart sounds are normal. Normal rate and rhythm regular, no murmur, gallop or rub. Abdomen - soft, nontender, nondistended, no masses or organomegaly Skin - no bruising or bleeding Extremities - no cyanosis, clubbing or edema Lab Results CBC Lab Results Component Value Date WBC 11.1 10/08/2019 WBC 10.4 04/28/2015 RBC 2.79 10/08/2019 HGB 8.8 10/08/2019 HCT 27.1 10/08/2019 PLT 228 10/08/2019 MCV 97.3 10/08/2019 MCH 31.6 10/08/2019 MCHC 32.5 10/08/2019 RDW 15.0 10/08/2019 SEGSPCT 70.0% 04/28/2015 LYMPHOPCT 11.1 10/08/2019 MONOPCT 11.2 10/08/2019 MONOPCT 5.1% 04/28/2015 BASOPCT 0.7 10/08/2019 BASOPCT 1.0% 04/28/2015 MONOSABS 1.2 10/08/2019 MONOSABS 0.5 04/28/2015 LYMPHSABS 1.2 10/08/2019 LYMPHSABS 2.5 04/28/2015 EOSABS 0.2 10/08/2019 EOSABS 0.0 04/28/2015 BASOSABS 0.1 10/08/2019 BASOSABS 0.1 04/28/2015 BMP Lab Results Component Value Date NA 135 10/07/2019 K 3.2 10/07/2019 CL 102 10/07/2019 CO2 26 10/07/2019 BUN 16 10/07/2019 CREATININE 0.50 10/07/2019 GLUCOSE 113 10/07/2019 CALCIUM 7.5 10/07/2019 IONCA 3.50 10/05/2019 LFTS Lab Results Component Value Date ALKPHOS 132 10/06/2019 ALT 14 10/06/2019 AST 26 10/06/2019 PROT 6.2 10/06/2019 BILITOT 1.0 10/06/2019 BILIDIR 0.0 10/06/2019 LABALBU 2.8 10/06/2019 INR No results found for: INR, PROTIME APTT No results for input(s): APTT in the last 72 hours. Lactic Acid Lab Results Component Value Date LACTA 1.3 10/03/2019 Cultures PENDING Radiology CXR 10/05/2019 Reviewed (See actual reports for details) CT chest reviewed ASSESSMENT AND PLANS Acute encephalopathy related to multidrug overdose, mental status is improving Acute respiratory failure, patient intubated due to inability to protect airway Did not meet criteria for SBT, continue ventilatory support minimize use of sedation MSSA pneumonia with a dense consolidation in the right lower lobe status post bronchoscopy, continue IV antibiotics Polypharmacy overdose combination of amitriptyline and Lyrica. History of hypertension blood pressure is stable History of gastroesophageal reflux disease PPI History anxiety and depression-needs psych consult once patient is extubated Wean oxygen as tolerated. Keep O2 sat 90-92% Stress ulcer prophylaxis Use replacement protocols DVT prophylaxis Case discussed with nurse and /family. Questions and concerns addressed. Total critical care time caring for this patient with life threatening, unstable organ failure, including direct patient contact, management of life support systems, review of data including imaging and labs, discussions with other team members and physicians at least 35 minutes so far today, excluding procedures. * Rajendra Kim MD - 10/07/2019 1:25 PM EDT Critical Care Progress Note 10/07/2019 1:25 PM Subjective: Admit Date: 10/03/2019 PCP: Moreno Oates Chief Complaint Patient presents with Loss of Consciousness Interval History: Tested negative for COVID. Continues to be intubated and sedated. Excessive secretions from ETT. Cultures sent. Currently on 60% FiO2 and PEEP of 10. 10/05/19: continues to be intubated and sedated. No fever. CXR reviewed, had dense consolidation on RLL with possible effusion. Following simple commands. 10/06/19: No major changes in oxygenation status. Has been on 50% FiO2 and PEEP of 10. Noted CT chestyesterday. Continues to have copious secretions from ETT. No fever. On low dose Precedexe. 10/07/19: had bronch yesterday, aspirated tracheobronchials tree. Cultures sent. PEEP increased to 12yesterday. This AM dropped to 10. PO2 70. Over all stable over night. Less secretions today. Unable to obtain review of systems. Medications: Scheduled Meds: ampicillin-sulbactam 3 g Intravenous Q6H sodium chloride flush 10 mL Intravenous 2 times per day enoxaparin 40 mg Subcutaneous Daily famotidine (PEPCID) injection 20 mg Intravenous BID Continuous Infusions: dexmedetomidine (PRECEDEX) IV infusion 1.3 mcg/kg/hr (10/07/19 1313) Objective: Vitals: Temp (24hrs), Av F (37.2 C), Min:98.4 F (36.9 C), Max:99.3 F (37.4 C) BP 133/82 Pulse 64 Temp 99.2 F (37.3 C) (Axillary) Resp 25 Ht 5' 9 (1.753 m) Wt 270 lb (122.5 kg) SpO2 97% BMI 39.87 kg/m I/O:24HR INTAKE/OUTPUT: Intake/Output Summary (Last 24 hours) at 10/07/2019 1325 Last data filed at 10/07/2019 1200 Gross per 24 hour Intake 6248.18 ml Output 1265 ml Net 4983.18 ml 10/05 07 - 10/06 07 In: 5622.2 [I.V.:4936.2] Out: 900 [Urine:900] CVP: Ventilator Settings: Vent Mode: AC/VC+ Rate Set: 14 bmp Vt Ordered: 350 mL Pressure Support: 0 cmH20 PEEP/CPAP: 10 FiO2 : 50 % Physical Exam: General appearance - ill appearing, in mild distress Mental status - intubated, not following commands, off sedation Eyes - pupils equal and reactive, extraocular eye movements intact Nose - normal and patent, no erythema Neck - supple, no JVD Chest - B/L rhonchi, symmetric air entry Heart - normal rate, regular rhythm, normal S1, S2 Abdomen - soft, nontender, nondistended Rectal - deferred, not clinically indicated Neurological - no focal motor and sensory deficit Musculoskeletal - no joint tenderness, deformity or swelling Extremities - peripheral pulses normal, no pedal edema, no clubbing or cyanosis Skin - normal coloration and turgor BMP: Recent Labs 10/06/19 1201 10/06/19 1758 10/07/19 0411 NA 137 137 138 K 4.0 3.8 3.4* CL 104 105 106 CO2 26 26 25 BUN 18 17 17 CREATININE 0.55 0.58 0.55 GLUCOSE 89 85 114* . M,PHOS:3)@ Ionized Calcium: Lab Results Component Value Date IONCA 3.50 10/05/2019 CBC: Recent Labs 10/06/19 0241 10/07/19 0411 WBC 11.6* 11.0* HGB 11.2* 11.3* PLT 146 204 ABG: Recent Labs 10/05/19 0501 PH 7.42 Assessment and Plan: Impression: - acute encephalopathy, due to drug overdose. Seems to be improving - Acute respiratory failure due to inability to protect airways - MSSA pneumonia, dense consolidation in RLL. S/P bronch yesterday - polypharmacy overdose. Amitriptyline and Lyrica. Also has benzo in drug screen but she is alreadyon valium. - anxiety, depression. - HTN - GERD Plan: - resume care in ICU - ventilator bundle. Wean off as tolerated. Today Fio2 50 %, PEEP 10. Decrease PEEP to 8. - had bronchoscopy with aspiration of tracheobronchial tree yesterday. - serial ABG - resume Unasyn - replace electrolytes Prophylaxis: Stress ulcer: [] PPI Agent [x] H2RA [] Sucralfate [] Other: VTE: [x] Enoxaparin [] SC Heparin [] SCD Full Code Excluding procedures, the total critical care time caring for this patient with life threatening, unstable organ failure, including direct patient contact, review of medical record, management of life support systems, review of data including imaging and labs, discussions with other team members, patient's family and physicians at least 32 minutes so far today. * Guera Maynard RCP - 10/07/2019 4:56 AM EDT 10/07/19 0434 Spontaneous Breathing Trial (SBT) RT Doc Contraindications to SBT? Failed SAT;PEEP > 10 cm H2O * Amada Ching RN - 10/06/2019 12:30 PM EDT Bronchoscopy performed at bedside with Judy Lincoln with respiratory at bedside Tolerated well medicated per physician order specimen obtained report given to Carmine barajas in no acute distress * Dulce Maria Chawla, JULIA, LD - 10/06/2019 11:21 AM EDT Nutrition Assessment Type and Reason for Visit: Initial, Positive Nutrition Screen(dt referral for npo for 2 days- tf ordered today) Nutrition Recommendations: 1)GOAL IS STANDARD LOW FIBER - VITAL HI PRO TF with goal rate of 55 cc/hr(1320 mike,115 gm pro,1103 cc free water for 11 mike/kg cbw ,1.7 gm pro/kg ibw or .9 gm pro/kg cbw. Suggest increase slowly 2)suggest speech therapy evaluation post extubation 3)suggest daily wts 4)Monitor labs, status, intakes, wts, to reassess. folow up at least weekly Nutrition Assessment: 64 y.o. female with history of hypertension, depression, anxiety, gastroesophageal reflux disease, multiple sclerosis and tobacco abuse who presents with altered mental status and suspicion for drug overdose(.2 empty pill bottles nearby including Lyrica and amitriptyline(immobile at home for 2 yrs per hx) Malnutrition Assessment: Malnutrition Status: At risk for malnutrition Context: Acute illness or injury Findings of the 6 clinical characteristics of malnutrition (Minimum of 2 out of 6 clinical characteristics is required to make the diagnosis of moderate or severe Protein Calorie Malnutrition based on AND/ASPEN Guidelines): 1. Energy Intake-Less than or equal to 50% of estimated energy requirement, (?not eating ??? poss 3-4 days) 2. Weight Loss- , 3. Fat Loss-Unable to assess, 4. Muscle Loss-Unable to assess, 5. Fluid Accumulation-Mild fluid accumulation, Extremities(+2 ble) 6. Director Medical Science Strength-Not measured Nutrition Risk Level: High Nutrient Needs: Estimated Daily Total Kcal: 9520-2940 Estimated Daily Protein (g): 79-132 Estimated Daily Total Fluid (ml/day): 2 liter or per md Nutrition Diagnosis: Problem: Inadequate oral intake Etiology: related to Cognitive or neurological impairment, Alteration in GI function ? Signs and symptoms: as evidenced by Intubation, Nutrition support - EN, BMI, Localized or generalized fluid accumulation Objective Information: Nutrition-Focused Physical Findings: og, on precedex,+2 ble ,tachy, cant follow commands ,all ext weak, wbc 11.6,alb 2.8, ca 7.8, corrected ca8.52 n,[id number], jacinto 13:+2 ble, last bm Wound Type: Multiple(healing scabs) Current Nutrition Therapies: Oral Diet Orders: NPO Oral Diet intake: NPO Oral Nutrition Supplement (ONS) Orders: None ONS intake: NPO Anthropometric Measures: Ht: 5' 9 (175.3 cm) Current Body Wt: 270 lb (122.5 kg)( [facility] Body Wt: Usual Body Wt: % Weight Change: , was 150 lbs in 2015; 10/2018 was 240 lbs. incr 30 lbs in 11 mo? [place] Body Wt: 145 lb (65.8 kg), % [place] Body 186 Adjusted Body Wt: , body weight adjusted for BMI Classification: BMI 35.0 - 39.9 Obese Class II(39.9) Nutrition Interventions: Continue current Tube Feeding Continued Inpatient Monitoring, Speech Therapy Nutrition Evaluation: Evaluation: Goals set Goals: pt will receive ,tolerate adequate nutrition with safe swallow- Monitoring: TF Intake, TF Tolerance, Skin Integrity, I&O, Mental Status/Confusion, Weight, Pertinent Labs, Nausea or Vomiting, Monitor Hemodynamic Status, Monitor Bowel Function Contact Number: [phone] * Louise Jay RCP - 10/06/2019 7:34 AM EDT 10/06/19 0734 Spontaneous Breathing Trial (SBT) RT Doc Contraindications to SBT? PEEP > 10 cm H2O;FiO2 > 50% Rate Measured 28 br/min Pulse 69 SpO2 97 % * Rajendra Kim MD - 10/06/2019 6:27 AM EDT Critical Care Progress Note 10/06/2019 6:27 AM Subjective: Admit Date: 10/03/2019 PCP: Moreno Oates Chief Complaint Patient presents with Loss of Consciousness Interval History: Tested negative for COVID. Continues to be intubated and sedated. Excessive secretions from ETT. Cultures sent. Currently on 60% FiO2 and PEEP of 10. 10/05/19: continues to be intubated and sedated. No fever. CXR reviewed, had dense consolidation on RLL with possible effusion. Following simple commands. 10/06/19: No major changes in oxygenation status. Has been on 50% FiO2 and PEEP of 10. Noted CT chestyesterday. Continues to have copious secretions from ETT. No fever. On low dose Precedexe. Unable to obtain review of systems. Medications: Scheduled Meds: ampicillin-sulbactam 3 g Intravenous Q8H sodium chloride flush 10 mL Intravenous 2 times per day enoxaparin 40 mg Subcutaneous Daily famotidine (PEPCID) injection 20 mg Intravenous BID Continuous Infusions: dexmedetomidine (PRECEDEX) IV infusion 0.9 mcg/kg/hr (10/06/19 0257) sodium chloride 75 mL/hr at 10/05/19 0032 Objective: Vitals: Temp (24hrs), Av.4 F (37.4 C), Min:98.7 F (37.1 C), Max:99.8 F (37.7 C) BP 138/82 Pulse 69 Temp 98.7 F (37.1 C) (Oral) Resp 22 Ht 5' 9 (1.753 m) Wt 270 lb (122.5 kg) SpO2 94% BMI 39.87 kg/m I/O:24HR INTAKE/OUTPUT: Intake/Output Summary (Last 24 hours) at 10/06/2019 0627 Last data filed at 10/06/2019 0000 Gross per 24 hour Intake 1202.64 ml Output 800 ml Net 402.64 ml 10/04 07 - 10/05 0700 In: 1102.6 [I.V.:882.6] Out: 800 [Urine:800] CVP: Ventilator Settings: Vent Mode: AC/VC+ Rate Set: 14 bmp Vt Ordered: 350 mL Pressure Support: 0 cmH20 PEEP/CPAP: 10 FiO2 : 50 % Physical Exam: General appearance - ill appearing, in mild distress Mental status - intubated, not following commands, off sedation Eyes - pupils equal and reactive, extraocular eye movements intact Nose - normal and patent, no erythema Neck - supple, no JVD Chest - B/L rhonchi, symmetric air entry Heart - normal rate, regular rhythm, normal S1, S2 Abdomen - soft, nontender, nondistended Rectal - deferred, not clinically indicated Neurological - no focal motor and sensory deficit Musculoskeletal - no joint tenderness, deformity or swelling Extremities - peripheral pulses normal, no pedal edema, no clubbing or cyanosis Skin - normal coloration and turgor BMP: Recent Labs 10/05/19 0838 10/05/19 1849 10/06/19 0241 NA 138 135 136 K 3.5 3.6 3.9 CL 111* 104 103 CO2 24 27 27 BUN 13 15 17 CREATININE 0.43* 0.48* 0.56 GLUCOSE 87 91 99 . M,PHOS:3)@ Ionized Calcium: Lab Results Component Value Date IONCA 3.50 10/05/2019 CBC: Recent Labs 10/05/19 0125 10/06/19 0241 WBC 11.1* 11.6* HGB 10.5* 11.2* PLT 131* 146 ABG: Recent Labs 10/05/19 0501 PH 7.42 Assessment and Plan: Impression: - acute encephalopathy, due to drug overdose. Seems to be improving - Acute respiratory failure due to inability to protect airways - aspiration pneumonia, dense consolidation in RLL. - polypharmacy overdose. Amitriptyline and Lyrica. Also has benzo in drug screen but she is alreadyon valium. - anxiety, depression. - HTN - GERD Plan: - resume care in ICU for hemodynamic and airway monitoring - ventilator bundle. Wean off as tolerated. Today Fio2 50 %, PEEP 10. - bronchoscopy today - serial ABG - resume Abx - serial EKG showed stability. Maintain on monitor. - replace electrolytes Prophylaxis: Stress ulcer: [] PPI Agent [x] H2RA [] Sucralfate [] Other: VTE: [x] Enoxaparin [] SC Heparin [] SCD Full Code Excluding procedures, the total critical care time caring for this patient with life threatening, unstable organ failure, including direct patient contact, review of medical record, management of life support systems, review of data including imaging and labs, discussions with other team members, patient's family and physicians at least 31 minutes so far today. * Kimberly Nassar RN - 10/05/2019 10:00 PM EDT Patient RASS -3/-4. 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 Patient shows signs of agitation and vent dysychrony with low dose precedex. * Jazmine Guevara - 10/05/2019 8:37 AM EDT Nutrition rescreen completed. Patient is NPO/Clear liquid >2 days. Refer to Dietitian. * Bigg Anguiano RCP - 10/05/2019 7:11 AM EDT 10/05/19 0700 Spontaneous Breathing Trial (SBT) RT Doc Contraindications to SBT? PEEP > 10 cm H2O * Rajendra Kim MD - 10/05/2019 6:30 AM EDT Critical Care Progress Note 10/05/2019 6:30 AM Subjective: Admit Date: 10/03/2019 PCP: Moreno Oates Chief Complaint Patient presents with Loss of Consciousness Interval History: Tested negative for COVID. Continues to be intubated and sedated. Excessive secretions from ETT. Cultures sent. Currently on 60% FiO2 and PEEP of 10. 10/05/19: continues to be intubated and sedated. No fever. CXR reviewed, had dense consolidation on RLL with possible effusion. Following simple commands. Unable to obtain review of systems. Medications: Scheduled Meds: calcium gluconate IVPB 4 g Intravenous Once ampicillin-sulbactam 3 g Intravenous Q8H sodium chloride flush 10 mL Intravenous 2 times per day enoxaparin 40 mg Subcutaneous Daily famotidine (PEPCID) injection 20 mg Intravenous BID Continuous Infusions: dexmedetomidine (PRECEDEX) IV infusion 24.5 mcg/hr (10/05/19 0129) sodium chloride 75 mL/hr at 10/05/19 0032 Objective: Vitals: Temp (24hrs), Av.9 F (37.7 C), Min:99.5 F (37.5 C), Max:100.4 F (38 C) BP 118/69 Pulse 100 Temp 99.6 F (37.6 C) (Oral) Resp 24 Ht 5' 9 (1.753 m) Comment: per Steve estimate - pt is vented Wt 270 lb (122.5 kg) SpO2 99% BMI 39.87 kg/m I/O:24HR INTAKE/OUTPUT: Intake/Output Summary (Last 24 hours) at 10/05/2019 06 Last data filed at 10/05/2019 0607 Gross per 24 hour Intake 3129.65 ml Output 1725 ml Net 1404.65 ml 10/03 0701 - 10/04 0700 In: 3129.7 [I.V.:1869.7] Out: 1725 [Urine:1675] CVP: Ventilator Settings: Vent Mode: AC/VC+ Rate Set: 14 bmp Vt Ordered: 350 mL Pressure Support: 0 cmH20 PEEP/CPAP: 10 FiO2 : 50 % Physical Exam: General appearance - ill appearing, in mild distress Mental status - intubated, not following commands, off sedation Eyes - pupils equal and reactive, extraocular eye movements intact Nose - normal and patent, no erythema Neck - supple, no JVD Chest - B/L rhonchi, symmetric air entry Heart - normal rate, regular rhythm, normal S1, S2 Abdomen - soft, nontender, nondistended Rectal - deferred, not clinically indicated Neurological - no focal motor and sensory deficit Musculoskeletal - no joint tenderness, deformity or swelling Extremities - peripheral pulses normal, no pedal edema, no clubbing or cyanosis Skin - normal coloration and turgor BMP: Recent Labs 10/04/19 1159 10/04/19 1827 10/05/19 0125 NA 138 135 136 K 3.6 3.4* 3.5 CL 95* 97* 106 CO2 34* 34* 26 BUN 17 16 14 CREATININE 0.68 0.61 0.47* GLUCOSE 108* 104* 93 . M,PHOS:3)@ Ionized Calcium: Lab Results Component Value Date IONCA 3.50 10/05/2019 CBC: Recent Labs 10/04/19 0437 10/05/19 0125 WBC 13.3* 11.1* HGB 12.2 10.5* PLT 131* 131* ABG: Recent Labs 10/05/19 0501 PH 7.42 Assessment and Plan: Impression: - acute encephalopathy, due to drug overdose. Seems to be improving - Acute respiratory failure due to inability to protect airways - aspiration pneumonia - polypharmacy overdose. Amitriptyline and Lyrica. Also has benzo in drug screen but she is alreadyon valium. - anxiety, depression. - HTN - GERD Plan: - resume care in ICU for hemodynamic and airway monitoring - ventilator bundle. Wean off as tolerated. Today Fio2 50 %, PEEP 10. - check CT chest today - serial ABG - resume Abx - serial EKG showed stability. Maintain on monitor. - replace electrolytes - COVID test was negative Prophylaxis: Stress ulcer: [] PPI Agent [x] H2RA [] Sucralfate [] Other: VTE: [x] Enoxaparin [] SC Heparin [] SCD Full Code Excluding procedures, the total critical care time caring for this patient with life threatening, unstable organ failure, including direct patient contact, review of medical record, management of life support systems, review of data including imaging and labs, discussions with other team members, patient's family and physicians at least 31 minutes so far today. * Rajendra Kim MD - 10/04/2019 6:48 AM EDT Critical Care Progress Note 10/04/2019 6:48 AM Subjective: Admit Date: 10/03/2019 PCP: Moreno Oates Chief Complaint Patient presents with Loss of Consciousness Interval History: tested negative for COVID. Continues to be intubated and sedated. Excessive secretions from ETT. Cultures sent. Currently on 60% FiO2 and PEEP of 10. No 14 points review of systems has been obtained and negative except to was mentioned in HPI. Medications: Scheduled Meds: calcium gluconate IVPB 4 g Intravenous Once sodium chloride flush 10 mL Intravenous 2 times per day enoxaparin 40 mg Subcutaneous Daily famotidine (PEPCID) injection 20 mg Intravenous BID piperacillin-tazobactam 3.375 g Intravenous Q8H vancomycin 1,500 mg Intravenous Q12H Continuous Infusions: sodium chloride 75 mL/hr at 10/03/19 1650 Objective: Vitals: Temp (24hrs), Av.2 F (37.9 C), Min:98 F (36.7 C), Max:101.8 F (38.8 C) BP 118/74 Pulse 101 Temp 99.8 F (37.7 C) (Oral) Resp 21 Ht 5' 9 (1.753 m) Comment: per Steve estimate - pt is vented Wt 270 lb (122.5 kg) SpO2 98% BMI 39.87 kg/m I/O:24HR INTAKE/OUTPUT: Intake/Output Summary (Last 24 hours) at 10/04/2019 0648 Last data filed at 10/04/2019 0612 Gross per 24 hour Intake 2902.83 ml Output 1575 ml Net 1327.83 ml 10/02 0701 - 10/03 0700 In: 2902.8 [I.V.:1342.8] Out: 1575 [Urine:1425] CVP: Ventilator Settings: Vent Mode: AC/VC+ Rate Set: 14 bmp Vt Ordered: 350 mL Pressure Support: 0 cmH20 PEEP/CPAP: 10 FiO2 : 60 % Physical Exam: General appearance - ill appearing, in mild distress Mental status - intubated, not following commands, off sedation Eyes - pupils equal and reactive, extraocular eye movements intact Nose - normal and patent, no erythema Neck - supple, no JVD Chest - B/L rhonchi, symmetric air entry Heart - normal rate, regular rhythm, normal S1, S2 Abdomen - soft, nontender, nondistended Rectal - deferred, not clinically indicated Neurological - no focal motor and sensory deficit Musculoskeletal - no joint tenderness, deformity or swelling Extremities - peripheral pulses normal, no pedal edema, no clubbing or cyanosis Skin - normal coloration and turgor BMP: Recent Labs 10/03/19 1354 10/03/19201910/04/19 0438 NA 139 135 137 K 4.0 2.9* 3.3* CL 97* 92* 100 CO2 32* 34* 31* BUN 34* 23* 18 CREATININE 0.73 0.53 0.58 GLUCOSE 103* 198* 116* . M,PHOS:3)@ Ionized Calcium: No results found for: IONCA CBC: Recent Labs 10/03/19 0840 10/04/19 0437 WBC 12.1* 13.3* HGB 14.1 12.2 PLT 187 131* ABG: No results for input(s): PH, PCO2, PO2 in the last 72 hours. Assessment and Plan: Impression: - acute encephalopathy, due to drug overdose - Acute respiratory failure due to inability to protect airways - polypharmacy overdose. Amitriptyline and Lyrica. Also has benzo in drug screen but she is alreadyon valium. - hypomagnesemia. - anxiety, depression. - HTN - GERD Plan: - resume care in ICU for hemodynamic and airway monitoring - ventilator bundle. Wean off as tolerated. Today Fio2 60 %, PEEP 10. - serial ABG - resume Abx - serial EKG. Bicarbonate gtt was stopped - check serial labs - replace electrolytes - COVID test was negative Prophylaxis: Stress ulcer: [] PPI Agent [x] H2RA [] Sucralfate [] Other: VTE: [x] Enoxaparin [] SC Heparin [] SCD Full Code Excluding procedures, the total critical care time caring for this patient with life threatening, unstable organ failure, including direct patient contact, review of medical record, management of life support systems, review of data including imaging and labs, discussions with other team members, patient's family and physicians at least 31 minutes so far today. * Bigg Anguiano RCP - 10/04/2019 5:07 AM EDT 10/04/19 3729 Spontaneous Breathing Trial (SBT) RT Doc Contraindications to SBT? Failed SAT;FiO2 > 50%;PEEP > 10 cm H2O * Juan Pablo Bocanegra RN - 10/03/2019 5:21 PM EDT Nursing note: Spoke with legal regarding release of information and possible history of patients wishes in that regard. Shirlene from legal said at this time we are OK to speak with the patients legal spouse regarding her care. Recommended social service to look into the chart history to ascertain if the patient did indeed make a request to [employer] restricting future information releases. Spoke with social service on-call, she will review the chart and get back with the care team with anything of note. Jame Bocanegra - Compliance Professional documented in this encounter Assessments Diagnosis Infection of total right knee replacement, initial encounter (HCC) Diagnosis Generalized weakness Other malaise and fatigue Hypokalemia Hypopotassemia Chronic pain of right knee Inability to ambulate due to knee Difficulty in walking Misuse of prescription only drugs (HCC) Other, mixed, or unspecified nondependent drug abuse, unspecified Benzodiazepine dependence (HCC) Sedative, hypnotic or anxiolytic dependence, unspecified Contusion of right knee, initial encounter Diagnosis Intentional drug overdose, initial encounter (HCC) Acute hypoxemic respiratory failure (HCC) Leukocytosis, unspecified type Drug overdose, multiple drugs, accidental or unintentional, initial encounter Acute respiratory failure with hypoxia (HCC) Acute respiratory failure Unspecified mood (affective) disorder (HCC) Metabolic encephalopathy Palliative care encounter Encounter for palliative care Aspiration pneumonia (HCC) Pneumonitis due to inhalation of food or vomitus Hospital Course * Yamilka Yeboah, DAGOBERTO - SENIOR CONSUMER INSIGHTS CONSULTANT - 02/03/2020 12:05 PM EDT Discharge Summary Charlie Nguyen : 1955 ADMIT DATE: 01/27/2020 DISCHARGE DATE: 02/03/2020 PRIMARY CARE PHYSICIAN: Moreno Oates VISIT STATUS: Admission CODE STATUS: Full Code DISCHARGE DIAGNOSES: 1. Failure to thrive/worsening debility: PT/OT rec SNF. 2. Acute metabolic encephalopathy, improving 3. Hypoxia, due to atelectasis 4. Stg II pressure ulcer, Right buttocks (POA) 5. Hypokalemia, improved 6. HTN 7. Acute right knee pain due to contusion. Recent right knee septic arthritis 8. UTI, s/p treatment 9. DVT on Eliquis 10. MS 11. GERD 12. Prev seizure 13. MDD HOSPITAL COURSE: This is a 64 yo female who presented to the ED on 01/26 with FTT. She was recently admitted DC from [facility] after tx for septic arthritis. She underwent arthrotomy/poly exchange and wasdischarged to SNF/[facility] w/IV ATB back in November. In the ED here, she was lethargic, confused/hadn't been doing well at home. Denied fall prior to admission, but she was found lying on the floor. She was admitted for FTT. She did have UTI and electrolyte abnormalities that were addressed. She was evaluated by Ortho d/t complaints of right knee pain- no evidence of recurrent septic arthritis. She she was also seen by Addiction Med d/t some concerns about medication overuse (ie Benzodiazepines/Lyrica); recommendation is to gradually taper this over the next few weeks. Due to her mentation, we had her evaluated by Psychiatry-> expert evaluation forms were completed as it has been determined thatpatient lacks capacity to make decisions independently; she will need a guardian. She has had significant improvement and is medically optimized for transfer to SNF. Rec cough/deep breathing/IS encouragement to prevent further atelectasis. She also need frequent turning/repositioning d/t pressure ulcers (POA) SIGNIFICANT DIAGNOSTIC STUDIES: General appearance: No apparent distress HEENT: Normal cephalic, atraumatic without obvious deformity. Pupils equal, round, and reactive to light. Neck: Supple, with full range of motion. No jugular venous distention. Respiratory: Normal respiratory effort. Clear to auscultation, diminished Cardiovascular: Regular rate and rhythm with normal S1/S2 Abdomen: Soft, non-tender, non-distended with normal bowel Musculoskeletal: No clubbing, cyanosis or edema bilaterally; right knee pain Skin: Skin color, texture, turgor normal. No rashes or lesions. Neurologic: Neurovascularly intact without any focal sensory/motor deficits. Cranial nerves: II-XIIintact, grossly non-focal. CONSULTANTS: Addiction Med Psychiatry Orthopedics RECOMMENDED NEXT STEPS: Taper pain meds over the next 2-3 days Taper Benzos slowly over the next 2 wks/Taper Lyrica DISCHARGE MEDICATIONS: Charlie Nguyen Home Medication Instructions LULU:[id number] Printed on:02/03/20 1207 Medication Information apixaban (ELIQUIS) 5 MG TABS tablet Take 1 tablet by mouth 2 times daily diazePAM (VALIUM) 10 MG tablet Take 0.5 tablets by mouth every 8 hours as needed for Anxiety for up to 2 days. metoprolol tartrate (LOPRESSOR) 50 MG tablet Take 1 tablet by mouth 2 times daily nicotine (NICODERM CQ) 21 MG/24HR Place 1 patch onto the skin daily oxyCODONE (ROXICODONE) 5 MG immediate release tablet Take 1 tablet by mouth every 8 hours as needed for Pain for up to 3 days. pantoprazole (PROTONIX) 40 MG tablet Take 1 tablet by mouth daily PARoxetine (PAXIL) 30 MG tablet Take 30 mg by mouth every morning polyethylene glycol (GLYCOLAX) 17 g packet Take 17 g by mouth daily as needed for Constipation pregabalin (LYRICA) 75 MG capsule Take 1 capsule by mouth 2 times daily for 3 days. promethazine (PHENERGAN) 25 MG tablet Take 1 tablet by mouth every 6 hours as needed for Nausea DIET: DIET GENERAL; Dietary Nutrition Supplements: Low Calorie High Protein Supplement ACTIVITY: up with assist COMPLEXITY OF FOLLOW UP: [] Moderate Complexity: follow up within 7-14 calendar days (70317) [x] Severe Complexity: follow up within 7 calendar days (85215) FOLLOW UP TESTING, PENDING RESULTS OR REFERRALS AT TRANSITIONAL CARE VISIT: [x] Yes [] No PENDING STUDIES: No DISPOSITION: SNF FACILITY/HOME CARE AGENCY NAME: [facility] Follow up with Moreno Oates INSTRUCTIONS TO MA/SW: Please call patient on day after discharge (must document patient contacted within 2 business days of discharge). FOLLOW UP QUESTIONS FOR MA/SW: 1. Did you get medications filled and taking them as instructed from discharge? 2. Are you following your discharge instructions from your hospital stay? 3. Please confirm patient is scheduled for a follow up appointment within the above time frame. DISCHARGE TIME: > 30 minutes SIGNED: DAGOBERTO Calvert CNP 02/03/2020, 12:07 PM documented in this encounter* Gina Mendoza MD - 10/25/2019 2:17 PM EDT Hospitalist Discharge Summary Charlie Nguyen : 1955 Admit date: 10/03/2019 Discharge date: 10/25/2019 Admitting Physician: Rajendra Kim MD Primary Care Physician: Moreno Oates Visit Status: Admission Code Status: Limited Discharge Diagnoses: Seizure's provoked by hypoxia GERD Active Problems: Drug overdose, multiple drugs, accidental or unintentional, initial encounter Acute respiratory failure with hypoxia (HCC) Unspecified mood (affective) disorder (HCC) Palliative care encounter Aspiration pneumonia (HCC) Resolved Problems: Metabolic encephalopathy Class 2 obesity Procedures: None Hospital Course: Improved. Patient is a 64 year old female who was admitted for altered mental status, she accidentally swolled few tabs of amitriptyline and lyrica, intially was thought to be accidental, but later was ruled out, she may have developed right sided PNA due to aspiration, treated appropriately with abx, O2 supplementation, condition slowly improved. COVID 19 was negative. She also has post ictal state while in the hospital, she may have had a seizure episode, with hx of seizures in the past, she was started on IV valproate by the neurologist, no further events. She clinically improved with hypoxia, no over cough, mental status improved. Transferred to [facility] Consults: Neurology, Critical care and Psychiatry Discharge Instructions: Follow social distancing to prevent COVID 19 disease spread, wash hands frequently with either soap and water (preferred) or hand express clerk for atleast 20 seconds Diet: DIET GENERAL; Dental Soft Dietary Nutrition Supplements: Low Calorie High Protein Supplement Activity: as tolerated Recommended Outpatient Tests: Disposition: Patient discharged in stable condition to LTAC. Greater than 30 minutes spent discharging the patient and coming up with patient discharge plan. Vitals: BP 116/78 Pulse 95 Temp 98 F (36.7 C) (Temporal) Resp 18 Ht 5' 9 (1.753 m) Wt 270 lb (122.5 kg) SpO2 93% BMI 39.87 kg/m Pulse Ox: SpO2 Av.8 % Min: 91 % Max: 97 % Supplemental O2: O2 Flow Rate (L/min): 3 L/min General appearance: Weak, alert and oriented times three. No apparent distress, appears stated age and cooperative with exam Respiratory: Normal respiratory effort. Clear to auscultation, bilaterally without Rales/Wheezes/Rhonchi. Cardiovascular: Regular rate and rhythm with normal S1/S2 without murmurs, rubs or gallops. Abdomen: Soft, non-tender, non-distended with normal bowel sounds. No rebound or guarding. Musculoskeletal: No clubbing, cyanosis or edema bilaterally. Full range of motion without deformity. Skin: Skin color, texture, turgor normal. No rashes or lesions. Discharge Medications: Charlie Nguyen Home Medication Instructions LULU:[id number] Printed on:10/25/19 6532 Medication Information Acetaminophen-Aspirin Buffered (EXCEDRIN BACK & BODY) 250-250 MG TABS Take 2 tablets by mouth every 6 hours as needed amoxicillin-clavulanate (AUGMENTIN) 875-125 MG per tablet Take 1 tablet by mouth every 12 hours for 2 days Blood Pressure Monitoring (B-D ASSURE BPM/AUTO ARM CUFF) [facility] Use as directed to monitor BP metoprolol tartrate (LOPRESSOR) 50 MG tablet Take 1 tablet by mouth 2 times daily pantoprazole (PROTONIX) 40 MG tablet Take 1 tablet by mouth daily PARoxetine (PAXIL) 30 MG tablet Take 30 mg by mouth every morning promethazine (PHENERGAN) 25 MG tablet Take 1 tablet by mouth every 6 hours as needed for Nausea Recommended Follow-up: Moreno Oates Schedule an appointment as soon as possible for a visit [facility] [address] [address] Complexity of Follow up: [] Moderate Complexity: follow up within 7-14 calendar days (61636) [x] Severe Complexity: follow up within 7 calendar days (30309) Follow up Testing, Pending results or Referrals at Transitional Care Visit: [x] yes [] No GENERAL ZONES GREEN ZONE: All Clear- Your Symptoms Are Under Control No recurrence of symptoms that led to hospitalization Able to do usual activities No fever No chest pain No shortness of breath This Means You Should: Continue taking your medications as prescribed Continue activity as tolerated Keep all doctor appointments YELLOW ZONE: Caution Recurrence of symptoms that led to hospitalization Fever of 100 degrees or higher Increased fatigue or restlessness Intolerant side-effects of medications Uneasy feeling or that something is wrong This Means You Should: Call your doctor for further instructions Either your PCP or specialist RED ZONE: Medical Alert Severe or unrelieved shortness of breath at rest Unrelieved chest pain Confusion or you can't think clearly This Means You Should Call 911 Immediately Instructions to MA: Please call patient on day after discharge (must document patient contacted within 2 business days of discharge). Follow up questions for MA: 1. Did you get medications filled and taking them as instructed from discharge? 2. Are you following your discharge instructions from your hospital stay? 3. Please confirm patient is scheduled for a follow up appointment within the above time frame. A total of more than 30 mins has been spent in discharging the patient. Signed: @ @ Division of Hospitalist Medicine Inpatient Medical Services 10/25/2019, 2:17 PM This report was created using the 248 [employer] Speaking voice- activated system. Despiteprompt dictation and careful editorial review, there may be subtle contextual errors in this report, due to misrecognition of the spoken word. * Scott Corona MD - 10/18/2019 1:49 PM EDT Hospitalist Discharge Summary Charlie Nguyen : 1955 Admit date: 10/03/2019 Discharge date: 10/18/2019 Admitting Physician: Rajendra Kim MD Primary Care Physician: Moreno Oates Visit Status: Admission Code Status: Limited Discharge Diagnoses: 1. Acute hypoxic resp failure likely 2/2 Aspiration PNA s/p extubation 10/11 2. Acute metabolic encephalopathy 2/2 intentional drug overdose - Amitriptyline / Lyrica 3. MSSA/ Corynebacterium pneumonia s/p bronch 10/05 4. Intentional Drug Overdose 5. Transaminitis - Improved 6. Tachycardia 7. HTN 8. Hypokalemia - Resolved 9. Multiple sclerosis 10. Morbid Obesity due to excess calories 11. Depression 12. GERD 13. COVID-19 negative Additional diagnosis evaluated and treated during the admission: Patient Active Problem List Diagnosis Code Migraine G43.909 Internal derangement of right knee M23.91 Glioma ([facility]) C71.9 Hypertension I10 Chronic nonintractable headache R51 Intentional drug overdose ([facility]) T50.902A Drug overdose, multiple drugs, accidental or unintentional, initial encounter T50.911A Acute respiratory failure with hypoxia ([facility]) J96.01 Unspecified mood (affective) disorder ([facility]) F39 Procedures: CVC, Intubation, CXR, Ct Cervical Spine, CT Head, CTA Chest, CXR daily Hospital Course: Admitted for encephalopathy and hypoxia. Found unresponsive by her son this AM. Last seen normal was 1800 yesterday. EMS found 2 empty bottles of Lyrica and Amitripyline. supposedly each bottle had 6 pills. Narcan was tried by ER and EMS with no success. Therefore, patient was intubated for airway protection. Was not given any sedation. Pt intubated in the ED and sent to ICU. Broad spectrum antibiotics and CVC placed. Pt intubated from 10/02 until 10/10. Psychiatry saw patient after intubation to assess whether overdose was intentional or accidental. Requested re-evaluation frominitial interview. 6 days later, psychiatry returned and re-evaluated. Per note, The patient is confused and unable to carry out a spontaneous decision. She does not understand whyand where she needs to be after discharge. She has no understanding of her illness, situation, progress and prognosis. She does not have any capacity to make any decisions about her good care at this time. If treated she may improve and may have the capacity at that time. The patient has OD prior to coming to the hospital. She may benefit from inpatient psychiatric care. I will get my internal medicine involved to see if they feel that the patient is medically stable to transfer to the psychiatric unit. Pt was accepted by both psychiatry and internal medicine at [place] in the [facility] unit under Dr. Solis on 10/18/2019. See medication adjustments below in med rec. Consults: IP CONSULT TO INTERNAL MEDICINE IP CONSULT TO PSYCHIATRY PHARMACY TO DOSE VANCOMYCIN IP CONSULT TO OTOLARYNGOLOGY IP CONSULT TO PALLIATIVE CARE PHARMACY TO DOSE VANCOMYCIN IP CONSULT TO PSYCHIATRY IP CONSULT TO OTOLARYNGOLOGY IP CONSULT TO PSYCHIATRY Discharge Instructions: Diet: DIET GENERAL; Dental Soft Dietary Nutrition Supplements: Low Calorie High Protein Supplement Activity: as tolerated Recommended Outpatient Tests: Disposition: Patient discharged in stable condition to Inpatient Psych. Vitals: BP (!) 150/95 Pulse 90 Temp 98.9 F (37.2 C) (Temporal) Resp 16 Ht 5' 9 (1.753 m) Wt 270 lb (122.5 kg) SpO2 91% BMI 39.87 kg/m Pulse Ox: SpO2 Av % Min: 89 % Max: 92 % Supplemental O2: O2 Flow Rate (L/min): 5 L/min General appearance: AAO x 3 today; Morbidly obese female HEENT: Normal cephalic, atraumatic without obvious deformity. Pupils equal, round, and reactive to light. Extra ocular muscles intact. Conjunctivae/corneas clear. Neck: Supple, with full range of motion. No jugular venous distention. Trachea midline. No lymphadenopathy. Respiratory: Scattered rhonchi bilaterally Cardiovascular: Tachycardic; Regular rhythm with normal S1/S2 without murmurs, rubs or gallops. Abdomen: Soft, non-tender, non-distended with normal bowel sounds. No rebound or guarding. Musculoskeletal: No clubbing, cyanosis or edema bilaterally. Full range of motion without deformity. Skin: Skin color, texture, turgor normal. No rashes or lesions. Neurologic: Neurovascularly intact without any focal sensory/motor deficits. Cranial nerves: II-XIIintact, grossly non-focal. Discharge Medications: Charlie Nguyen Home Medication Instructions LULU:[id number] Printed on:10/18/19 7962 Medication Information Acetaminophen-Aspirin Buffered (EXCEDRIN BACK & BODY) 250-250 MG TABS Take 2 tablets by mouth every 6 hours as needed Blood Pressure Monitoring (B-D ASSURE BPM/AUTO ARM CUFF) [facility] Use as directed to monitor BP metoprolol tartrate (LOPRESSOR) 50 MG tablet Take 1 tablet by mouth 2 times daily pantoprazole (PROTONIX) 40 MG tablet Take 1 tablet by mouth daily PARoxetine (PAXIL) 30 MG tablet Take 30 mg by mouth every morning promethazine (PHENERGAN) 25 MG tablet Take 1 tablet by mouth every 6 hours as needed for Nausea Recommended Follow-up: Moreno Oates Schedule an appointment as soon as possible for a visit Complexity of Follow up: [] Moderate Complexity: follow up within 7-14 calendar days (28524) [x] Severe Complexity: follow up within 7 calendar days (96461) Follow up Testing, Pending results or Referrals at Transitional Care Visit: [x] yes [] no Instructions to MA: Please call patient on day after discharge (must document patient contacted within 2 business days of discharge). Follow up questions for MA: 1. Did you get medications filled and taking them as instructed from discharge? 2. Are you following your discharge instructions from your hospital stay? 3. Please confirm patient is scheduled for a follow up appointment within the above time frame. Signed: Scott Corona MD [facility] 10/18/2019, 4:43 PM Time Spent on discharge exceeded 35 minutes discussing plan of care and discharge medications with patient and nursing staff documented in this encounter Discharge Instructions * Pharmacy* Fadumo Hernandez RPH - 01/30/2020 9:19 AM EDT * Discharge Instr - Activity* Delisa Guaman RN - 02/03/2020 3:30 PM EDT Bed rest * Discharge Instr - Diet* Kiley Goff PA-C - 02/01/2020 11:49 AM EDT ? Good nutrition is important when healing from an illness, injury, or surgery. Follow any nutrition recommendations given to you during your hospital stay. ? If you were given an oral nutrition supplement while in the hospital, continue to take this supplement at home. You can take it with meals, in-between meals, and/or before bedtime. These supplements can be purchased at most local grocery stores, pharmacies, and chain super-stores. ? If you have any questions about your diet or nutrition, call the hospital and ask for the dietitian. * Discharge Instr - Other Orders* Yamilka Yeboah APRN - CNP - 02/03/2020 10:35 AM EDT GENERAL SIGNS AND SYMPTOMS GREEN ZONE: All Clear- Your Symptoms Are Under Control No recurrence of symptoms that led to hospitalization Able to do usual activities No fever No chest pain No shortness of breath This Means You Should: Continue taking your medications as prescribed Continue activity as tolerated Keep all doctor appointments YELLOW ZONE: Caution as Your Health may be Worsening Recurrence of symptoms that led to hospitalization Fever of 100 degrees or higher Increased fatigue or restlessness Intolerant side-effects of medications Uneasy feeling or that something is wrong This Means You Should: Call your doctor for further instructions RED ZONE: Medical Alert Severe or unrelieved shortness of breath at rest Unrelieved chest pain Confusion or you can't think clearly This Means You Should Call 911 Immediately * Discharge Instr - Delisa Schroeder RN - 02/01/2020 11:50 AM EDT Continuity of Care Form Patient Name: Charlie Nguyen : 1955 Admit date: 01/27/2020 Discharge date: 02-03-20 Code Status Order: Full Code Advance Directives: Advance Care Flowsheet Documentation Date/Time Healthcare Directive Type of Healthcare Directive Copy in Chart Healthcare Agent Appointed Healthcare Agent's Name Healthcare Agent's Phone Number 01/27/20 8097 No, patient does not have an advance directive for healthcare treatment -- -- -- -- -- Admitting Physician: Tian Haro MD PCP: Moreno Oates Discharging Nurse: Delisa Guaman RN Discharging Hospital Unit/Room#: 255/2551 Discharging Unit Emergency Contact: Extended Emergency Contact Information Primary Emergency Contact: Vicente Driscoll [facility] Mobile Relation: Child Past Surgical History: Past Surgical History: Procedure Laterality Date BRONCHOSCOPY 10/06/2019 HYSTERECTOMY KNEE SURGERY Right 06/2016 TUBAL LIGATION Immunization History: Immunization History Administered Date(s) Administered Influenza Vaccine, unspecified formulation 02/15/2016 Influenza Virus Vaccine 03/24/2015 Tdap (Boostrix, Adacel) 12/06/2016 Active Problems: Patient Active Problem List Diagnosis Code Migraine G43.909 Internal derangement of right knee M23.91 Glioma ([facility]) C71.9 Hypertension I10 Chronic nonintractable headache R51 Intentional drug overdose ([facility]) T50.902A Drug overdose, multiple drugs, accidental or unintentional, initial encounter T50.911A Acute respiratory failure with hypoxia ([facility]) J96.01 Unspecified mood (affective) disorder ([facility]) F39 Palliative care encounter Z51.5 Aspiration pneumonia ([facility]) J69.0 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 (Note: GI panel does not include C diff testing). C-diff Rule Out 01/27/20 01/27/20 01/28/20 Gastrointestinal Panel by DNA (Ordered) 01/29/20 Angelique Camacho RN COVID-19 Rule Out 10/25/19 10/25/19 10/25/19 COVID-19 (Ordered) 10/26/19 Loly Godoy RN COVID-19 Rule Out 10/20/19 10/20/19 10/20/19 COVID-19 (Ordered) 10/20/19 Loyl Godoy RN COVID-19 Rule Out 10/03/19 10/03/19 10/03/19 COVID-19 (Ordered) 10/04/19 Loly Godoy RN Nurse Assessment: Last Vital Signs: BP (!) 142/86 Pulse 63 Temp 97.9 F (36.6 C) (Temporal) Resp 18 Ht 5' 11 (1.803 m) Wt 238 lb 12.8 oz (108.3 kg) SpO2 93% BMI 33.31 kg/m Last documented pain score (0-10 scale): Pain Level: 3 Last Weight: Wt Readings from Last 1 Encounters: 02/01/20 238 lb 12.8 oz (108.3 kg) Mental Status: disoriented IV Access: - None Nursing Mobility/ADLs: Walking Dependent Transfer Dependent Bathing Dependent Dressing Dependent Toileting Dependent Feeding Dependent Transaction Coordinator Dependent Med Delivery whole Wound Care Documentation and Therapy: Wound 10/12/19 Perineum Medial Pressure ulcer, open wound/ skin tear (Active) Number of days: 111 Wound 10/22/19 Thigh Right;Medial;Anterior (Active) Number of days: 101 Wound 10/22/19 Thigh Anterior;Left;Medial (Active) Number of days: 101 Wound 01/27/20 Buttocks Anterior;Proximal;Right (Active) Wound Pressure Stage 2 01/31/20 2235 Dressing Status Other (Comment) 02/01/20 0832 Dressing/Treatment Other (comment) 02/01/20 0832 Wound Cleansed Rinsed/Irrigated with saline 01/31/20 0801 Wound Assessment Slough;Red;Purple;Painful 02/01/20 0832 Drainage Amount Scant 02/01/20 0832 Drainage Description Serosanguinous 02/01/20 0832 Birgit-wound Assessment Red 02/01/20 0832 Culture Taken No 01/31/20 2235 Number of days: 4 Elimination: Continence: Bowel: No Bladder: No Urinary Catheter: None Colostomy/Ileostomy/Ileal Conduit: No Date of Last BM: 02-01-2020 Intake/Output Summary (Last 24 hours) at 02/01/2020 1149 Last data filed at 01/31/2020 2235 Gross per 24 hour Intake 300 ml Output 800 ml Net -500 ml I/O last 3 completed shifts: In: 300 [P.O.:300] Out: 800 [Urine:800] Safety Concerns: History of Falls (last 30 days) and At Risk for Falls Impairments/Disabilities: None Nutrition Therapy: Current Nutrition Therapy: - Oral Diet: General Routes of Feeding: Oral Liquids: Thin Liquids Daily Fluid Restriction: no Last Modified Barium Swallow with Video (Video Swallowing Test): not done Treatments at the Time of Hospital Discharge: Respiratory Treatments: none Oxygen Therapy: is not on home oxygen therapy. Ventilator: - No ventilator support Rehab Therapies: Physical Therapy and Occupational Therapy Weight Bearing Status/Restrictions: No weight bearing restirctions Other Medical Equipment (for information only, NOT a DME order): walker Other Treatments: none Patient's personal belongings (please select all that are sent with patient): None RN SIGNATURE: BPaelizabeth RISK INTERN/SOCIAL WORK SECTION Inpatient Status Date: 01/30/2020 Readmission Risk Assessment Score: Readmission Risk Risk of Unplanned Readmission: 33 Discharging to Facility/ Agency Name: [facility] Address:[address] [place] [id number] Dialysis Facility (if applicable) Name: Address: Dialysis Schedule: Phone: Fax: Hand Screen Printer/Escrow Manager signature: PHYSICIAN SECTION Prognosis: Good Condition at Discharge: Stable Rehab Potential (if transferring to Rehab): Good Recommended Labs or Other Treatments After Discharge: N/A Physician Certification: I certify the above information and transfer of Charlie Nguyen is necessaryfor the continuing treatment of the diagnosis listed and that she [facility] greater [facility]. Update Admission H&P: No change in H&P PHYSICIAN SIGNATURE: * Attachments The following attachments cannot be sent through Care Everywhere. * Knee Pain or Injury (Hungarian) documented in this encounter* Pharmacy* Fadumo Hernandez RPH - 10/04/2019 9:13 AM EDT * Discharge Instr - CLYDE* Gina Mendoza MD - 10/03/2019 4:12 PM EDT Continuity of Care Form Patient Name: Charlie Nguyen : 1955 Admit date: 10/03/2019 Discharge date: Code Status Order: Full Code Advance Directives: Admitting Physician: Rajendra Kim MD PCP: Moreno Oates Discharging Nurse: Discharging Hospital Unit/Room#: 408/1761 Discharging Unit Phone Number: Emergency Contact: Extended Emergency Contact Information Primary Emergency Contact: Vicente Driscoll [facility] Relation: Child Past Surgical History: Past Surgical History: Procedure Laterality Date HYSTERECTOMY KNEE SURGERY Right 06/2016 TUBAL LIGATION Immunization History: Immunization History Administered Date(s) Administered Influenza Vaccine, unspecified formulation 02/15/2016 Influenza Virus Vaccine 03/24/2015 Tdap (Boostrix, Adacel) 12/06/2016 Active Problems: Patient Active Problem List Diagnosis Code Migraine G43.909 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 Hypertension I10 Chronic nonintractable headache R51 Intentional drug overdose ([facility]) T50.902A Drug overdose, multiple drugs, accidental or unintentional, initial encounter T50.911A Isolation/Infection: Isolation No Isolation Patient Infection Status Infection Onset Added Last Indicated Last Indicated By Review Planned Expiration Resolved Resolved By COVID-19 Rule Out 10/03/19 10/03/19 10/03/19 COVID-19 (Ordered) Nurse Assessment: Last Vital Signs: BP (!) 154/92 Pulse 84 Temp 99.1 F (37.3 C) (Oral) Resp 19 Wt 260 lb (117.9 kg) SpO2 96% BMI 36.26 kg/m Last documented pain score (0-10 scale): Last Weight: Wt Readings from Last 1 Encounters: 10/03/19 260 lb (117.9 kg) Mental Status: {IP PT MENTAL STATUS:74646} IV Access: { CLYDE IV ACCESS:550109329} Nursing Mobility/ADLs: Walking Dependent Transfer Dependent Bathing Dependent Dressing Dependent Toileting Dependent Feeding Dependent Transaction Coordinator Dependent Med Delivery whole Wound Care Documentation and Therapy: Elimination: Continence: Bowel: {YES / NO:} Bladder: {YES / NO:} Urinary Catheter: None and Removal Date 10/18/19 Colostomy/Ileostomy/Ileal Conduit: {YES / NO:} LBM 10/18/19 Intake/Output Summary (Last 24 hours) at 10/03/2019 1612 Last data filed at 10/03/2019 1610 Gross per 24 hour Intake 550 ml Output 75 ml Net 475 ml I/O last 3 completed shifts: In: 500 [IV Piggyback:500] Out: 75 [Urine:75] Safety Concerns: CONFUSED Impairments/Disabilities: VERY WEAK SLIGHTLY DELAYED RESPONSES Nutrition Therapy: Current Nutrition Therapy: - Oral Diet: General and Dental Soft Routes of Feeding: Oral Liquids: {Fire Supervisor liquid thickness:87599} Daily Fluid Restriction: no Last Modified Barium Swallow with Video (Video Swallowing Test): not done Treatments at the Time of Hospital Discharge: Respiratory Treatments: Oxygen Therapy: 4 LITERS NC Ventilator: - No ventilator support Rehab Therapies: {THERAPEUTIC INTERVENTION:2370374090} Weight Bearing Status/Restrictions: No weight bearing restirctions Other Medical Equipment (for information only, NOT a DME order): {EQUIPMENT:197406008} Other Treatments: Patient's personal belongings (please select all that are sent with patient): None, Dentures {DESC; UPPER/LOWER/BOTH:61200} RN SIGNATURE: CASE MANAGEMENT/SOCIAL WORK SECTION Inpatient Status Date: Readmission Risk Assessment Score: Readmission Risk Risk of Unplanned Readmission: 14 Discharging to Facility/ Agency Name: [facility] Address: [address] [place] [address] ( [facility]) Dialysis Facility (if applicable) Name: Address: Dialysis Schedule: Phone: Fax: Hand Screen Printer/Escrow Manager signature: PHYSICIAN SECTION Prognosis: Good Condition at Discharge: Stable Rehab Potential (if transferring to Rehab): Good Recommended Labs or Other Treatments After Discharge: PT/OT, Patient on Valproic acid 250 mg IV every 8 hours , here for seizures, to check with the neurologist for continuation Physician Certification: I certify the above information and transfer of Charlie Nguyen is necessaryfor the continuing treatment of the diagnosis listed and that she requires LTAC for greater 30 days. Update Admission H&P: No change in H&P PHYSICIAN SIGNATURE: * Additional Instructions* Scott Corona MD - 10/18/2019 Use of Multiple Drugs: Care Instructions Your Care Instructions You have had treatment to help your body get rid of a combination of any of these drugs: Prescription medicines Jooe-kln-gdxmaiz medicines Alcohol Illegal drugs Taking some drugs together may cause a bad reaction. They can have unexpected or stronger effects on your body and mind. For example, benzodiazepines (such as alprazolam and lorazepam) and alcohol both depress the nervous system. Taken together, each one is stronger than when it is taken by itself. You are getting better, but it takes time for the drugs to leave your body. It may take up to 2 weeks for your mind to clear and your mood to improve. Depending on the drugs you took, the doctor might have: Watched your symptoms or done tests to find out what drugs were in your body. Treated you to control your breathing, blood pressure, and heart rate. Tried to remove the drugs from your body by pumping your stomach or giving you a substance by mouththat absorbs chemicals. Given you a substance that neutralizes chemicals (antidote). Given you oxygen to help you breathe. Given you fluids. The doctor also watched you carefully to make sure you were recovering safely. Follow-up care is a bey part of your treatment and safety. Be sure to make and go to all appointments, and call your doctor if you are having problems. It's also a good idea to know your test resultsand keep a list of the medicines you take. How can you care for yourself at home? Adopt healthy habits to ease withdrawal symptoms. When you use substances like alcohol and some drugs regularly, your body gets used to them. This is called physical dependence. If you are physicallydependent on substances, you may have withdrawal symptoms when you stop taking them. These symptomsmay include trembling, feeling restless, and sweating. To help get past these: ? Get plenty of rest. ? Drink lots of fluids. ? Stay active. ? Eat a healthy diet. Drink fluids to soothe a sore throat. If you had a tube in your throat to help you breathe, you mayhave a sore throat or hoarseness that can last a few days. Drinking fluids may help. If you use opioids, ask your doctor or pharmacist about having a naloxone rescue kit on hand. Get help to stop using drugs. Talk to your doctor about substance use treatment programs. When should you call for help? Call 911 anytime you think you may need emergency care. For example, call if: You feel you cannot stop from hurting yourself or someone else. Call your doctor now or seek immediate medical care if: You have new or worse symptoms of withdrawal, such as trembling, feeling restless, and sweating, that you can't manage at home. Watch closely for changes in your health, and be sure to contact your doctor if: You do not get better as expected. You need help finding the right place to get help with drug or alcohol problems. Where can you learn more? Go to [email or web address] and sign in to your [employer] account. Enter B109 in the Search Health Information box to learn more about Use of Multiple Drugs: Care Instructions. If you do not have an account, please click on the Sign Up Now link. Current as of: January 19, 2019Content Version: 12.4 [id number] [employer]. Care instructions adapted under license by [employer]. If you have questions about a medical condition or this instruction, always ask your healthcare professional. [employer] disclaims any warranty or liability for your use of this information. documented in this encounter Chief Complaint and Reason for Visit Chief Complaint [facility] BLOOD WORK [facility] BLOOD WORK [facility] BLOOD WORK [facility] BLOOD WORK [facility] BLOOD WORK [facility] WORK [facility] WORK Chief Complaint [facility] LABWORK [facility] LABWORK [facility] LABWORK [facility] BLOOD WORK [facility] BLOOD WORK [facility] BLOOD WORK [facility] BLOOD WORK [facility] BLOOD WORK [facility] LAB WORK [facility] LAB WORK Chief Complaint [facility] BLOOD W ORK [facility] BLOOD WORK [facility] BLOOD WORK [facility] BLOOD WORK [facility] LAB WORK [facility] LAB WORK LABWORK Chief Complaint [facility] LAB WOR K [facility] LAB WORK LABWORK [facility] LABWORK LABWORK Chief Complaint [facility] LAB WOR K LABWORK [facility] LABWORK LABWORK LABWORK LABWORK Chief Complaint LABWORK [facility] LABWORK LABWORK LABWORK LABWORK [facility] LABWORK Chief Complaint LABWORK LABWORK [facility] LABWORK LABWORK Chief Complaint LABWORK [facility] LABWORK [facility] LAB WORK [facility] LABWORK [facility] LAB WORK [facility] LAB WOKR Chief Complaint [facility] LABWORK [facility] LAB WORK [facility]FP LABWORK [facility] LAB WORK [facility] LAB WOKR [facility] LAB WORK Chief Complaint [facility] LABWORK [facility] LAB WORK [facility] LABWORK [facility] LAB WORK [facility] LAB WOKR [facility] LAB WORK [facility] LAB WORK Chief Complaint [facility] LAB WOR K [facility] LAB WOKR [facility] LAB WORK [facility] LAB WORK MCFP LABWORK [facility] LAB WORK Chief Complaint [facility] LAB WOR K MC[facility] LAB WOKR [facility] LAB WORK [facility] LAB WORK MCFP LABWORK LABWORK [facility] LAB WORK Chief Complaint [facility] LAB WOK R [facility] LAB WORK [facility] LAB WORK [facility] LABWORK LABWORK MCFP LAB WORK [facility] LABWORK Chief Complaint [facility] LAB WOR K [facility] LAB WORK [facility] LABWORK LABWORK MCFP LAB WORK [facility] LABWORK LABWORK Chief Complaint LABWORK [facility] LAB WORK [facility] LABWORK LABWORK MCFP LABWORK [facility] LABWORK Chief Complaint [facility] LABWORK LABWORK MCFP LABWORK MCFP LABWORK MCFP LAB WORK [facility] LAB WORK Chief Complaint MCFP LABWORK MCFP LAB WORK MCFP LAB WORK MCFP LABWORK MCFP LABWORK Chief Complaint MCFP LABWORK MCFP LAB WORK MCFP LAB WORK MCFP LABWORK MCFP LABWORK MC[facility] LABWORK Chief Complaint [facility] LAB WOR K [facility] LAB WORK MCFP LABWORK MCFP LABWORK [facility] LABWORK LABWORK [facility] LABWORK Chief Complaint [facility] LABWORK [facility] LABWORK [facility] LABWORK LABWORK [facility] LABWORK LABWORK Chief Complaint LABWORK [facility] LABWORK LABWORK LABWORK LABWORK Chief Complaint LABWORK LABWORK LABWORK LABWORK Chief Complaint Admit Date LABWORK May 11, 2024 5:00am LABWORK July 04, 2024 5 :00am [facility] LAB WORK July 12 5:00am LABWORK August 10, 2024 5:0 0am Reason for Referral Specialty Diagnoses / Procedures Referred By Contac t Referred To Contact CT IMAGING Diagnoses Pain due to internal orthopedic prosthetic devices, implants and grafts, initial encounter (HCC) Procedures CT KNEE WO IVCON LT CT LOWER EXTREMITY W/O CONTRAST MATERIAL Debbie Batista PA-C [address] [place] [address] Ct Imaging Referral ID Status Reason Start Date Expiration Date V isits Requested Visits Authorized [id number] Closed Auto-Generate d Referral 06/09/2022 05/31/2023 1 1 Additional Source Comments INFORMATION SOURCE (unrecogn ized section and content) DATE CREATED AUTHOR 11/06/2018 [facility] chinedu Jenkins DATE CREATED AUTHOR AUTHOR'S ORGANIZ ATION 12/22/2019 [facility] DATE CREATED AUTHOR AUTHOR'S ORGANIZ ATION 01/12/2021 [facility] DATE CREATED AUTHOR AUTHOR'S ORGANIZ ATION 03/01/2021 [facility] DATE CREATED AUTHOR AUTHOR'S ORGANIZ ATION 03/24/2022 [facility] DATE CREATED AUTHOR AUTHOR'S ORGANIZ ATION 06/16/2022 [facility] DATE CREATED AUTHOR AUTHOR'S ORGANIZ ATION 01/23/[address] [facility] DATE CREATED AUTHOR AUTHOR'S ORGANIZ ATION 07/19/2024 [facility] DATE CREATED AUTHOR AUTHOR'S ORGANIZ ATION 10/17/2024 [facility] DATE CREATED AUTHOR AUTHOR'S ORGANIZ ATION 10/26/2024 [facility] Reason for Visit (unrecogniz ed section and content) Reason Comments Joint Swelling Pt [facility]o consult to rule out septic knee. Pt states she had been taking antibiotics for her knee and thought everything was fine and then they sent me here. Reason Comments Failure To Thrive Incontinence Reason Comments Loss of Consciousness Reason Comments Knee Pain Reason Comments Knee Pain pt states she had re cent knee surgury and now is having swelling and her right knee is hot to touch and states that the pain is a burning intermittent 02/08 Reason Comments Orders [facility] Reason Comments Received Outside Medical [facility] 07/05/2021 signature Reason Onset Date Comments Refill Request 09/27/2021 Reason Comments Refill Request [facility] Reason Comments Outside Lab Results from [facility] Reason Comments Orders request for sign off on medication from PCP from [facility]. Reason Comments Patient Question Reason Comments Refill Request [facility] Reason Comments Orders prescription signed off by PCP and faxed to [facility] Reason Comments Orders 1 day medication ref ill Reason Comments Medication Problem Reason Onset Date Comments Refill Request 11/19/2021 Refill Request 11/20/2021 Reason Comments Patient Update [facility] Reason Comments Orders [facility] Reason Comments Refill Request Reason Comments Outside Lab Results [facility] Reason Comments Orders Controlled medicatio n request from [facility] Reason Comments Orders Pharmacy Recommendat ion [facility] [place] Reason Comments Orders prescription request Reason Comments Orders Medication [facility] [place] Reason Comments Refill Request [facility] Reason Comments Orders [facility] Reason Comments Refill Request Future fill from the pharmacy Reason Comments Orders [facility] [place] Reason Comments Diagnositic mammogram and US orders Reason Onset Date Comments Opened In Error 03/18/2022 Reason Comments Orders Mammogram orders [facility] [place] Reason Comments medication orders [facility] Reason Comments Medication Request [facility] Oxycodone/apap Reason Comments Outside Labs Results [facility] Reason Comments Orders [facility] Reason Onset Date Comments Refill Request 06/25/2022 Reason Comments Patient Update [facility] 07/05/22 Reason Comments Outside Lab Results [facility] 07/14/22 Reason Onset Date Comments Refill Request 07/21/2022 Reason Comments Orders Reason Onset Date Comments Refill Request 07/29/2022 Reason Comments Received Outside Medical Records [facility] Specialty Diagnoses / Procedures Referred By Contact Referred To Contact [facility] Diagnoses Follow up CT scan left knee Procedures est patient Debbie Batista PA-C [address] [place] [address] [facility] [address] [place] [id number] Referral ID Status Reason Start Date Expiration Date Visits Requested Visits Authorized [id number] Pending Review OON/Self Pay Override 07/21/2022 01/17/2023 1 1 Reason Comments Medication Request [facility] Ox ycodone apap 5-325 mg 1 tab every 6 hours Reason Comments Medication Request [facility] Reason Comments Medication Request [facility]) Reason Comments Clinical Symptoms Reason Comments Received Outside Medical Records [facility] ([facility]) Labs Reason Comments Received Outside Medical Records [facility] ([facility]) Chest x-ray 11/04/2022 Reason Comments Leg Swelling Pt brought in [facility] for swelling in her L ankle and discoloration in her foot. Pt denies trauma to affected extremity. Pt reports Hx blood clots in her R leg. Reason Comments Orders [facility] Patient page ving extreme pain in left leg asking for an increase in percocet to every 4 hours. Reason Comments Received Outside Medical Records [facility] Vascular Surgery 12/15/22 Reason Comments Nurse Triage Call Reason Comments Received Outside Medical Records [facility] ([facility]) Labs 12/30/2022 Reason Onset Date Comments Refill Request 01/01/2023 Reason Comments Received Outside Medical Records Lab res ults from [facility]/ [facility] Lab Reason Onset Date Comments Refill Request 01/13/2023 Reason Comments Received Outside Medical Records [facility] Lower extremity venous duplex 01/21/2023 Reason Comments Medication Request Reason Comments Received Outside Medical Records Lab res ults 02/09/23 [facility] Reason Comments Received Outside Medical Records [facility] ([facility]) Labs 04/06/2023 Reason Comments Received Outside Medical Records [facility] ([facility]) Labs 05/11/2023 Reason Onset Date Comments Refill Request 07/30/2023 Reason Onset Date Comments Refill Request 07/31/2023 Reason Comments Outside Labs Results [facility]/ [facility] Reason Comments Received Outside Medical Records [facility] Order to increase Zofran from 4 mg to 8 mg Q8 hr prn Reason Onset Date Comments Refill Request 09/25/2023 Reason Onset Date Comments Refill Request 10/07/2023 Reason Comments Outside Lab Results [facility] 10/12/23 Reason Onset Date Comments Refill Request 10/27/2023 Reason Comments Received Outside Medical Records [facility] Labs 11/09/2023 Reason Onset Date Comments Refill Request 12/30/2023 Reason Onset Date Comments Refill Request 01/27/2024 Reason Comments Radio [facility] Specialty Diagnoses / Procedures Referred By Contac t Referred To Contact XR IMAGING Diagnoses Status post total left knee replacement Procedures XR KNEE POST OP 3V AP/LAT/MERCHANT LEFT RADIOLOGIC EXAMINATION KNEE 3 VIEWS Debbie Batista PA-C [address] [place] [address] [place] [id number] Referral ID Status Reason Start Date Expiration Date V isits Requested Visits Authorized [id number] Closed Auto-Generated Referral Financial Clearance Not Required 05/21/2022 06/20/2023 1 1 Reason Onset Date Comments Refill Request 02/26/2024 Reason Onset Date Comments Opened In Error 02/29/2024 Reason [facility] Reason Onset Date Comments Refill Request 03/24/2024 Reason Onset Date Comments Refill Request 03/25/2024 Reason Onset Date Comments Refill Request 03/31/2024 Reason Comments Received Outside Medical Records [facility] 04/11/2024 Reason Onset Date Comments Refill Request 04/22/2024 Reason Onset Date Comments Refill Request 04/21/2024 Reason Onset Date Comments Refill Request 05/23/2024 Reason Onset Date Comments Refill Request 06/23/2024 Reason Comments Received Outside Medical Records [facility] ([facility]) Labs 07/12/2024 Reason Onset Date Comments Refill Request 07/22/2024 Reason Onset Date Comments Refill Request 08/18/2024 Reason Onset Date Comments Refill Request 09/16/2024 Reason Onset Date Comments Refill Request 10/14/2024 Scheduled Active and Recently Administ ered Medications (unrecognized section and content) Medication Order 12/17/2020 12/18/2020 12/19/2020 clindamycin (CLEOCIN) 600 mg in dextrose 5 % 50 mL IVPB (COMPLETED) 600 mg, Intravenous, ONCE, 1 dose, On Thu12/18/20 at 2246 2318 (New Bag - Provider: Ntahaly Miller, MUSHTAQ)2348 (Stopped - Provider: Serentiy Coyne RN) oxyCODONE-acetaminophen (PERCOCET) 5-325 MG per tablet 1 tablet (COMPLETED) 1 tablet, Oral, ONCE, On Thu12/18/20 at 2235, For 1 dose, Maximum dose of acetaminophen is 4000 mg from all sources in 24 hours. 2318 (Given - Provider: Nathaly Miller RN) sodium chloride flush 0.9 % injection 3 mL(Linked Group 1) 3 mL, Intravenous, EVERY 8 HOURS, First dose on Thu12/18/20 at 2050, Flush line with 3-5 mL 2050 (Due) 045 (Due)125 (Due)2050 (Due) Linked Groups Order Group 1: Saline lock IV (COMPLETED) Routine, CONTINUOUS, Starting on Thu12/18/20 at 2100, Until Specified And sodium chloride flush 0.9 % injection 3 mLJump to med 3 mL, Intravenous, EVERY 8 HOURS, First dose on Thu12/18/20 at 2050
Flush line with 3-5 mL
Scheduled Medication Order 01/04/2021 01/05/2021 01/06/2021 0.9 % sodium chloride IV bolus 3,129 mL (COMPLETED) 3,129 mL (30 mL/kg 104.3 kg), Intravenous, at 6,258 mL/hr, Administer over 30 Minutes, ONCE, On 01/05/21 at 1915, For 1 dose, In accordance with Surviving Sepsis Campaign, infuse 30 mL/kg fluid challenge as rapidly as possible without overloading patient (target 30 to 60 minutes). If calculated rate exceeds 999 mL/hr, may administer wide open or using other rapid infusion mechanism. 194 (New Bag - Provider: Chantal Walton RN)2239 (Stopped - Provider: Delmy Lawson RN) morphine sulfate (PF) injection 2 mg (COMPLETED) 2 mg, Intravenous, ONCE, On 01/06/21 at 0300, For 1 dose, If oral and IV narcotics ordered, use oral first and only use IV if oral is ineffective or cannot take oral. Do Not give oral and IV within 1 hour of each other unless specifically ordered. 300 (Given - Provid er: Delmy Lawson RN) morphine sulfate (PF) injection 4 mg (COMPLETED) 4 mg, Intravenous, ONCE, On 01/05/21 at 2115, For 1 dose, If oral and IV narcotics ordered, use oral first and only use IV if oral is ineffective or cannot take oral. Do Not give oral and IV within 1 hour of each other unless specifically ordered. 2227 (Given - Provider: Delmy Lawson RN) ondansetron (ZOFRAN) injection 4 mg (COMPLETED) 4 mg, Intravenous, ONCE, On 01/05/21 at 2115, For 1 dose 2227 (Given - Provider: Delmy Lawson RN) oxyCODONE-acetaminophen (PERCOCET) 5-325 MG per tablet 1 tablet 1 tablet, Oral, ONCE, On 01/05/21 at 2245, For 1 dose, Maximum dose of acetaminophen is 4000 mg from all sources in 24 hours. 2246 (Not Given - Provider: Delmy Lawson RN - Reason: Other - Comment: Not to be given per Dr. Hudson.) piperacillin-tazobactam (ZOSYN) 4500 mg in dextrose 100 mL IVPB (premix) (COMPLETED) 4,500 mg, Intravenous, ONCE, 1 dose, On 01/05/21 at 1915 1932 (New Bag - Provider: Chantal Walton, MUSHTAQ)2240 (Stopped - Provider: Delmy Lawson, RN) sodium chloride flush 0.9 % injection 10 mL 10 mL, Intravenous, EVERY 12 HOURS SCHEDULED (2 times per day), First dose on 01/05/21 at 2100 2100 (Due) 0900 (Due)2100 (Due) vancomycin (VANCOCIN) 2,500 mg in dextrose 5 % 500 mL IVPB (COMPLETED) 2,500 mg (rounded from 2,607.5 mg = 25 mg/kg 104.3 kg), Intravenous, at 166.7 mL/hr, Administer over 180 Minutes, ONCE, On 01/05/21 at 1915, For 1 dose 2252 (New Bag - Provider: Chantal Walton RN) 0209 (Stopped - Provider: Delmy Lawson, RN) PRN Medication Order 01/04/2021 01/05/2021 01/06/2021 0.9 % sodium chloride infusion 25 mL, Intravenous, at 100 mL/hr, PRN, If patient receiving piggyback infusions without ordered maintenance IV fluids or with frequent/long duration piggyback infusions, Starting on 01/05/21 at 1913, Administer at the same rate as the piggyback being infused. sodium chloride flush 0.9 % injection 10 mL 10 mL, Intravenous, PRN, Line Care, After every IV line use, Starting on 01/05/21 at 1913 Scheduled Medication Order 01/13/2021 01/14/2021 01/15/2021 cefepime (MAXIPIME) 2000 mg IVPB minibag (COMPLETED) 2,000 mg, Intravenous, at 100 mL/hr, Administer over 30 Minutes, ONCE, On Thu01/15/21 at 1215, For 1 dose 1326 (New Bag - Prov ider: Carine Doty RN)1410 (Stopped - Provider: Carine Doty RN) HYDROmorphone (DILAUDID) injection 0.5 mg (COMPLETED) 0.5 mg, Intravenous, ONCE, On Thu01/15/21 at 1223, For 1 dose, If oral and IV narcotics ordered, use oral first and only use IV if oral is ineffective or cannot take oral. Do Not give oral and IV within 1 hour of each other unless specifically ordered. 1313 (Given - Provid er: Carine Doty RN) lactated ringers bolus (COMPLETED) 500 mL, Intravenous, at 250 mL/hr, Administer over 2 Hours, ONCE, On Thu01/15/21 at 1413, For 1 dose 1500 (New Bag - Prov ider: Carine Doty RN)1718 (Stopped - Provider: Demond Ramirez LPN) oxyCODONE-acetaminophen (PERCOCET) 5-325 MG per tablet 1 tablet (COMPLETED) 1 tablet, Oral, ONCE, On Thu01/15/21 at 1642, For 1 dose, Maximum dose of acetaminophen is 4000 mg from all sources in 24 hours. 1716 (Given - Provid er: Demond Ramirez LPN) sodium chloride flush 0.9 % injection 10 mL 10 mL, Intravenous, EVERY 12 HOURS SCHEDULED (2 times per day), First dose on Thu01/15/21 at 2100 2100 (Due) vancomycin (VANCOCIN) 2,000 mg in dextrose 5 % 500 mL IVPB 2,000 mg (rounded from 2,105 mg = 25 mg/kg 84.2 kg Adjusted weight), Intravenous, at 250 mL/hr, Administer over 120 Minutes, ONCE, On Thu01/15/21 at 1215, For 1 dose 1411 (Not Given - Pr ovider: Alexandro Moy RN - Reason: Order parameters not met) PRN Medication Order 01/13/2021 01/14/2021 01/15/2021 0.9 % sodium chloride infusion 25 mL, Intravenous, at 100 mL/hr, PRN, If patient receiving piggyback infusions without ordered maintenance IV fluids or with frequent/long duration piggyback infusions, Starting on Thu01/15/21 at 1213, Administer at the same rate as the piggyback being infused. iopamidol (ISOVUE-370) 76 % injection 75 mL 75 mL, Intravenous, IMG ONCE PRN, Other, Starting on Thu01/15/21 at 1301, For 1 dose sodium chloride flush 0.9 % injection 10 mL 10 mL, Intravenous, PRN, Line Care, After every IV line use, Starting on Thu01/15/21 at 1213 Scheduled Medication Order 11/15/2022 11/16/2022 11/17/2022 acetaminophen (Tylenol) tablet 650 mg (COMPLETED) 650 mg, Oral, Once, On Thu11/17/22 at 0905, For 1 dose, Maximum dose of acetaminophen is 4000 mg from all sources in 24 hours. 0924 (Given - Provid er: Kelvin Grajeda RN) metoclopramide (Reglan) injection 10 mg 10 mg, IntraVENous, Once, On Thu11/17/22 at 1120, For 1 dose 1120 (Canceled Entry - Provider: Automatic Discharge Provider - Comment: Automatically canceled at discontinue of medication order) PRN Medication Order 11/15/2022 11/16/2022 11/17/2022 iopamidol (Isovue-370) 76 % injection 75 mL (COMPLETED) 75 mL, IntraVENous, IMG once PRN, contrast, Starting on Thu11/17/22 at 1049, For 1 dose 1050 (Given - Provid er: Lou Esteban) Source Comments (unrecognize d section and content) In the event this informatio n is protected by the Federal Confidentiality of Alcohol and Drug Abuse Patient Records regulations: The Federal rules restrict any use of the information to criminally investigate or prosecute any alcohol or drug abuse patient.[facility] the event this information is protected by the Federal Confidentiality of Alcohol and Drug Abuse Patient Records regulations: The Federal rules restrict any use of the information to criminally investigate or prosecute any alcohol or drug abuse patient.[facility] the event this information is protected by the Federal Confidentiality of Alcohol and Drug Abuse Patient Records regulations: The Federal rules restrict any use of the information to criminally investigate or prosecute any alcohol or drug abuse patient.[facility] the event this information is protected by the Federal Confidentiality of Alcohol and Drug Abuse Patient Records regulations: The Federal rules restrict any use of the information to criminally investigate or prosecute any alcohol or drug abuse patient.[facility] the event this information is protected by the Federal Confidentiality of Alcohol and Drug Abuse Patient Records regulations: The Federal rules restrict any use of the information to criminally investigate or prosecute any alcohol or drug abuse patient.[facility] the event this information is protected by the Federal Confidentiality of Alcohol and Drug Abuse Patient Records regulations: The Federal rules restrict any use of the information to criminally investigate or prosecute any alcohol or drug abuse patient.[facility] the event this information is protected by the Federal Confidentiality of Alcohol and Drug Abuse Patient Records regulations: The Federal rules restrict any use of the information to criminally investigate or prosecute any alcohol or drug abuse patient.[facility] the event this information is protected by the Federal Confidentiality of Alcohol and Drug Abuse Patient Records regulations: The Federal rules restrict any use of the information to criminally investigate or prosecute any alcohol or drug abuse patient.[facility] the event this information is protected by the Federal Confidentiality of Alcohol and Drug Abuse Patient Records regulations: The Federal rules restrict any use of the information to criminally investigate or prosecute any alcohol or drug abuse patient.[facility] the event this information is protected by the Federal Confidentiality of Alcohol and Drug Abuse Patient Records regulations: The Federal rules restrict any use of the information to criminally investigate or prosecute any alcohol or drug abuse patient.[facility] the event this information is protected by the Federal Confidentiality of Alcohol and Drug Abuse Patient Records regulations: The Federal rules restrict any use of the information to criminally investigate or prosecute any alcohol or drug abuse patient.[facility] the event this information is protected by the Federal Confidentiality of Alcohol and Drug Abuse Patient Records regulations: The Federal rules restrict any use of the information to criminally investigate or prosecute any alcohol or drug abuse patient.[facility] the event this information is protected by the Federal Confidentiality of Alcohol and Drug Abuse Patient Records regulations: The Federal rules restrict any use of the information to criminally investigate or prosecute any alcohol or drug abuse patient.[facility] the event this information is protected by the Federal Confidentiality of Alcohol and Drug Abuse Patient Records regulations: The Federal rules restrict any use of the information to criminally investigate or prosecute any alcohol or drug abuse patient.[facility] the event this information is protected by the Federal Confidentiality of Alcohol and Drug Abuse Patient Records regulations: The Federal rules restrict any use of the information to criminally investigate or prosecute any alcohol or drug abuse patient.[facility]In the event this information is protected by the Federal Confidentiality of Alcohol and Drug Abuse Patient Records regulations: The Federal rules restrict any use of the information to criminally investigate or prosecute any alcohol or drug abuse patient.[facility] the event this information is protected by the Federal Confidentiality of Alcohol and Drug Abuse Patient Records regulations: The Federal rules restrict any use of the information to criminally investigate or prosecute any alcohol or drug abuse patient.[facility] the event this information is protected by the Federal Confidentiality of Alcohol and Drug Abuse Patient Records regulations: The Federal rules restrict any use of the information to criminally investigate or prosecute any alcohol or drug abuse patient.[facility] Hospital[facility] the event this information is protected by the Federal Confidentiality of Alcohol and Drug Abuse Patient Records regulations: The Federal rules restrict any use of the information to criminally investigate or prosecute any alcohol or drug abuse patient.[facility]In the event this information is protected by the Federal Confidentiality of Alcohol and Drug Abuse Patient Records regulations: The Federal rules restrict any use of the information to criminally investigate or prosecute any alcohol or drug abuse patient.[facility]In the event this information is protected by the Federal Confidentiality of Alcohol and Drug Abuse Patient Records regulations: The Federal rules restrict any use of the information to criminally investigate or prosecute any alcohol or drug abuse patient.[facility] HospitalIn the event this information is protected by the Federal Confidentiality of Alcohol and Drug Abuse Patient Records regulations: The Federal rules restrict any use of the information to criminally investigate or prosecute any alcohol or drug abuse patient.[facility] HospitalIn the event this information is protected by the Federal Confidentiality of Alcohol and Drug Abuse Patient Records regulations: The Federal rules restrict any use of the information to criminally investigate or prosecute any alcohol or drug abuse patient.[facility]In the event this information is protected by the Federal Confidentiality of Alcohol and Drug Abuse Patient Records regulations: The Federal rules restrict any use of the information to criminally investigate or prosecute any alcohol or drug abuse patient.[facility]In the event this information is protected by the Federal Confidentiality of Alcohol and Drug Abuse Patient Records regulations: The Federal rules restrict any use of the information to criminally investigate or prosecute any alcohol or drug abuse patient.[facility]In the event this information is protected by the Federal Confidentiality of Alcohol and Drug Abuse Patient Records regulations: The Federal rules restrict any use of the information to criminally investigate or prosecute any alcohol or drug abuse patient.[facility]In the event this information is protected by the Federal Confidentiality of Alcohol and Drug Abuse Patient Records regulations: The Federal rules restrict any use of the information to criminally investigate or prosecute any alcohol or drug abuse patient.[facility] HospitalIn the event this information is protected by the Federal Confidentiality of Alcohol and Drug Abuse Patient Records regulations: The Federal rules restrict any use of the information to criminally investigate or prosecute any alcohol or drug abuse patient.[facility]In the event this information is protected by the Federal Confidentiality of Alcohol and Drug Abuse Patient Records regulations: The Federal rules restrict any use of the information to criminally investigate or prosecute any alcohol or drug abuse patient.[facility]In the event this information is protected by the Federal Confidentiality of Alcohol and Drug Abuse Patient Records regulations: The Federal rules restrict any use of the information to criminally investigate or prosecute any alcohol or drug abuse patient.[facility]In the event this information is protected by the Federal Confidentiality of Alcohol and Drug Abuse Patient Records regulations: The Federal rules restrict any use of the information to criminally investigate or prosecute any alcohol or drug abuse patient.[facility]In the event this information is protected by the Federal Confidentiality of Alcohol and Drug Abuse Patient Records regulations: The Federal rules restrict any use of the information to criminally investigate or prosecute any alcohol or drug abuse patient.[facility]In the event this information is protected by the Federal Confidentiality of Alcohol and Drug Abuse Patient Records regulations: The Federal rules restrict any use of the information to criminally investigate or prosecute any alcohol or drug abuse patient.[facility]In the event this information is protected by the Federal Confidentiality of Alcohol and Drug Abuse Patient Records regulations: The Federal rules restrict any use of the information to criminally investigate or prosecute any alcohol or drug abuse patient.[facility]In the event this information is protected by the Federal Confidentiality of Alcohol and Drug Abuse Patient Records regulations: The Federal rules restrict any use of the information to criminally investigate or prosecute any alcohol or drug abuse patient.[facility]In the event this information is protected by the Federal Confidentiality of Alcohol and Drug Abuse Patient Records regulations: The Federal rules restrict any use of the information to criminally investigate or prosecute any alcohol or drug abuse patient.[facility] HospitalIn the event this information is protected by the Federal Confidentiality of Alcohol and Drug Abuse Patient Records regulations: The Federal rules restrict any use of the information to criminally investigate or prosecute any alcohol or drug abuse patient.[facility] HospitalIn the event this information is protected by the Federal Confidentiality of Alcohol and Drug Abuse Patient Records regulations: The Federal rules restrict any use of the information to criminally investigate or prosecute any alcohol or drug abuse patient.[facility] HospitalIn the event this information is protected by the Federal Confidentiality of Alcohol and Drug Abuse Patient Records regulations: The Federal rules restrict any use of the information to criminally investigate or prosecute any alcohol or drug abuse patient.[facility]In the event this information is protected by the Federal Confidentiality of Alcohol and Drug Abuse Patient Records regulations: The Federal rules restrict any use of the information to criminally investigate or prosecute any alcohol or drug abuse patient.[facility] HospitalIn the event this information is protected by the Federal Confidentiality of Alcohol and Drug Abuse Patient Records regulations: The Federal rules restrict any use of the information to criminally investigate or prosecute any alcohol or drug abuse patient.[facility]In the event this information is protected by the Federal Confidentiality of Alcohol and Drug Abuse Patient Records regulations: The Federal rules restrict any use of the information to criminally investigate or prosecute any alcohol or drug abuse patient.[facility]In the event this information is protected by the Federal Confidentiality of Alcohol and Drug Abuse Patient Records regulations: The Federal rules restrict any use of the information to criminally investigate or prosecute any alcohol or drug abuse patient.[facility] HospitalIn the event this information is protected by the Federal Confidentiality of Alcohol and Drug Abuse Patient Records regulations: The Federal rules restrict any use of the information to criminally investigate or prosecute any alcohol or drug abuse patient.[facility] HospitalIn the event this information is protected by the Federal Confidentiality of Alcohol and Drug Abuse Patient Records regulations: The Federal rules restrict any use of the information to criminally investigate or prosecute any alcohol or drug abuse patient.[facility] the event this information is protected by the Federal Confidentiality of Alcohol and Drug Abuse Patient Records regulations: The Federal rules restrict any use of the information to criminally investigate or prosecute any alcohol or drug abuse patient.[facility]In the event this information is protected by the Federal Confidentiality of Alcohol and Drug Abuse Patient Records regulations: The Federal rules restrict any use of the information to criminally investigate or prosecute any alcohol or drug abuse patient.[facility] HospitalIn the event this information is protected by the Federal Confidentiality of Alcohol and Drug Abuse Patient Records regulations: The Federal rules restrict any use of the information to criminally investigate or prosecute any alcohol or drug abuse patient.[facility]In the event this information is protected by the Federal Confidentiality of Alcohol and Drug Abuse Patient Records regulations: The Federal rules restrict any use of the information to criminally investigate or prosecute any alcohol or drug abuse patient.[facility]In the event this information is protected by the Federal Confidentiality of Alcohol and Drug Abuse Patient Records regulations: The Federal rules restrict any use of the information to criminally investigate or prosecute any alcohol or drug abuse patient.[facility]In the event this information is protected by the Federal Confidentiality of Alcohol and Drug Abuse Patient Records regulations: The Federal rules restrict any use of the information to criminally investigate or prosecute any alcohol or drug abuse patient.[facility]In the event this information is protected by the Federal Confidentiality of Alcohol and Drug Abuse Patient Records regulations: The Federal rules restrict any use of the information to criminally investigate or prosecute any alcohol or drug abuse patient.[facility]In the event this information is protected by the Federal Confidentiality of Alcohol and Drug Abuse Patient Records regulations: The Federal rules restrict any use of the information to criminally investigate or prosecute any alcohol or drug abuse patient.[facility]In the event this information is protected by the Federal Confidentiality of Alcohol and Drug Abuse Patient Records regulations: The Federal rules restrict any use of the information to criminally investigate or prosecute any alcohol or drug abuse patient.[facility]In the event this information is protected by the Federal Confidentiality of Alcohol and Drug Abuse Patient Records regulations: The Federal rules restrict any use of the information to criminally investigate or prosecute any alcohol or drug abuse patient.[facility]In the event this information is protected by the Federal Confidentiality of Alcohol and Drug Abuse Patient Records regulations: The Federal rules restrict any use of the information to criminally investigate or prosecute any alcohol or drug abuse patient.[facility]In the event this information is protected by the Federal Confidentiality of Alcohol and Drug Abuse Patient Records regulations: The Federal rules restrict any use of the information to criminally investigate or prosecute any alcohol or drug abuse patient.[facility]In the event this information is protected by the Federal Confidentiality of Alcohol and Drug Abuse Patient Records regulations: The Federal rules restrict any use of the information to criminally investigate or prosecute any alcohol or drug abuse patient.[facility]In the event this information is protected by the Federal Confidentiality of Alcohol and Drug Abuse Patient Records regulations: The Federal rules restrict any use of the information to criminally investigate or prosecute any alcohol or drug abuse patient.[facility]In the event this information is protected by the Federal Confidentiality of Alcohol and Drug Abuse Patient Records regulations: The Federal rules restrict any use of the information to criminally investigate or prosecute any alcohol or drug abuse patient.[facility] HospitalIn the event this information is protected by the Federal Confidentiality of Alcohol and Drug Abuse Patient Records regulations: The Federal rules restrict any use of the information to criminally investigate or prosecute any alcohol or drug abuse patient.[facility]In the event this information is protected by the Federal Confidentiality of Alcohol and Drug Abuse Patient Records regulations: The Federal rules restrict any use of the information to criminally investigate or prosecute any alcohol or drug abuse patient.[facility]In the event this information is protected by the Federal Confidentiality of Alcohol and Drug Abuse Patient Records regulations: The Federal rules restrict any use of the information to criminally investigate or prosecute any alcohol or drug abuse patient.[facility]In the event this information is protected by the Federal Confidentiality of Alcohol and Drug Abuse Patient Records regulations: The Federal rules restrict any use of the information to criminally investigate or prosecute any alcohol or drug abuse patient.[facility]In the event this information is protected by the Federal Confidentiality of Alcohol and Drug Abuse Patient Records regulations: The Federal rules restrict any use of the information to criminally investigate or prosecute any alcohol or drug abuse patient.[facility]In the event this information is protected by the Federal Confidentiality of Alcohol and Drug Abuse Patient Records regulations: The Federal rules restrict any use of the information to criminally investigate or prosecute any alcohol or drug abuse patient.[facility]In the event this information is protected by the Federal Confidentiality of Alcohol and Drug Abuse Patient Records regulations: The Federal rules restrict any use of the information to criminally investigate or prosecute any alcohol or drug abuse patient.[facility]In the event this information is protected by the Federal Confidentiality of Alcohol and Drug Abuse Patient Records regulations: The Federal rules restrict any use of the information to criminally investigate or prosecute any alcohol or drug abuse patient.[facility]In the event this information is protected by the Federal Confidentiality of Alcohol and Drug Abuse Patient Records regulations: The Federal rules restrict any use of the information to criminally investigate or prosecute any alcohol or drug abuse patient.[facility]In the event this information is protected by the Federal Confidentiality of Alcohol and Drug Abuse Patient Records regulations: The Federal rules restrict any use of the information to criminally investigate or prosecute any alcohol or drug abuse patient.[facility]In the event this information is protected by the Federal Confidentiality of Alcohol and Drug Abuse Patient Records regulations: The Federal rules restrict any use of the information to criminally investigate or prosecute any alcohol or drug abuse patient.[facility]In the event this information is protected by the Federal Confidentiality of Alcohol and Drug Abuse Patient Records regulations: The Federal rules restrict any use of the information to criminally investigate or prosecute any alcohol or drug abuse patient.[facility]In the event this information is protected by the Federal Confidentiality of Alcohol and Drug Abuse Patient Records regulations: The Federal rules restrict any use of the information to criminally investigate or prosecute any alcohol or drug abuse patient.[facility]In the event this information is protected by the Federal Confidentiality of Alcohol and Drug Abuse Patient Records regulations: The Federal rules restrict any use of the information to criminally investigate or prosecute any alcohol or drug abuse patient.[facility]In the event this information is protected by the Federal Confidentiality of Alcohol and Drug Abuse Patient Records regulations: The Federal rules restrict any use of the information to criminally investigate or prosecute any alcohol or drug abuse patient.[facility]In the event this information is protected by the Federal Confidentiality of Alcohol and Drug Abuse Patient Records regulations: The Federal rules restrict any use of the information to criminally investigate or prosecute any alcohol or drug abuse patient.[facility]In the event this information is protected by the Federal Confidentiality of Alcohol and Drug Abuse Patient Records regulations: The Federal rules restrict any use of the information to criminally investigate or prosecute any alcohol or drug abuse patient.[facility]In the event this information is protected by the Federal Confidentiality of Alcohol and Drug Abuse Patient Records regulations: The Federal rules restrict any use of the information to criminally investigate or prosecute any alcohol or drug abuse patient.[facility]In the event this information is protected by the Federal Confidentiality of Alcohol and Drug Abuse Patient Records regulations: The Federal rules restrict any use of the information to criminally investigate or prosecute any alcohol or drug abuse patient.[facility]In the event this information is protected by the Federal Confidentiality of Alcohol and Drug Abuse Patient Records regulations: The Federal rules restrict any use of the information to criminally investigate or prosecute any alcohol or drug abuse patient.[facility]In the event this information is protected by the Federal Confidentiality of Alcohol and Drug Abuse Patient Records regulations: The Federal rules restrict any use of the information to criminally investigate or prosecute any alcohol or drug abuse patient.[facility]In the event this information is protected by the Federal Confidentiality of Alcohol and Drug Abuse Patient Records regulations: The Federal rules restrict any use of the information to criminally investigate or prosecute any alcohol or drug abuse patient.[facility]In the event this information is protected by the Federal Confidentiality of Alcohol and Drug Abuse Patient Records regulations: The Federal rules restrict any use of the information to criminally investigate or prosecute any alcohol or drug abuse patient.[facility]In the event this information is protected by the Federal Confidentiality of Alcohol and Drug Abuse Patient Records regulations: The Federal rules restrict any use of the information to criminally investigate or prosecute any alcohol or drug abuse patient.[facility]In the event this information is protected by the Federal Confidentiality of Alcohol and Drug Abuse Patient Records regulations: The Federal rules restrict any use of the information to criminally investigate or prosecute any alcohol or drug abuse patient.[facility]In the event this information is protected by the Federal Confidentiality of Alcohol and Drug Abuse Patient Records regulations: The Federal rules restrict any use of the information to criminally investigate or prosecute any alcohol or drug abuse patient.[facility]In the event this information is protected by the Federal Confidentiality of Alcohol and Drug Abuse Patient Records regulations: The Federal rules restrict any use of the information to criminally investigate or prosecute any alcohol or drug abuse patient.[facility]In the event this information is protected by the Federal Confidentiality of Alcohol and Drug Abuse Patient Records regulations: The Federal rules restrict any use of the information to criminally investigate or prosecute any alcohol or drug abuse patient.[facility]In the event this information is protected by the Federal Confidentiality of Alcohol and Drug Abuse Patient Records regulations: The Federal rules restrict any use of the information to criminally investigate or prosecute any alcohol or drug abuse patient.[facility]In the event this information is protected by the Federal Confidentiality of Alcohol and Drug Abuse Patient Records regulations: The Federal rules restrict any use of the information to criminally investigate or prosecute any alcohol or drug abuse patient.[facility]In the event this information is protected by the Federal Confidentiality of Alcohol and Drug Abuse Patient Records regulations: The Federal rules restrict any use of the information to criminally investigate or prosecute any alcohol or drug abuse patient.[facility]In the event this information is protected by the Federal Confidentiality of Alcohol and Drug Abuse Patient Records regulations: The Federal rules restrict any use of the information to criminally investigate or prosecute any alcohol or drug abuse patient.[facility]In the event this information is protected by the Federal Confidentiality of Alcohol and Drug Abuse Patient Records regulations: The Federal rules restrict any use of the information to criminally investigate or prosecute any alcohol or drug abuse patient.[facility]In the event this information is protected by the Federal Confidentiality of Alcohol and Drug Abuse Patient Records regulations: The Federal rules restrict any use of the information to criminally investigate or prosecute any alcohol or drug abuse patient.[facility]In the event this information is protected by the Federal Confidentiality of Alcohol and Drug Abuse Patient Records regulations: The Federal rules restrict any use of the information to criminally investigate or prosecute any alcohol or drug abuse patient.[facility] the event this information is protected by the Federal Confidentiality of Alcohol and Drug Abuse Patient Records regulations: The Federal rules restrict any use of the information to criminally investigate or prosecute any alcohol or drug abuse patient.[facility]In the event this information is protected by the Federal Confidentiality of Alcohol and Drug Abuse Patient Records regulations: The Federal rules restrict any use of the information to criminally investigate or prosecute any alcohol or drug abuse patient.[facility]In the event this information is protected by the Federal Confidentiality of Alcohol and Drug Abuse Patient Records regulations: The Federal rules restrict any use of the information to criminally investigate or prosecute any alcohol or drug abuse patient.[facility]In the event this information is protected by the Federal Confidentiality of Alcohol and Drug Abuse Patient Records regulations: The Federal rules restrict any use of the information to criminally investigate or prosecute any alcohol or drug abuse patient.[facility]In the event this information is protected by the Federal Confidentiality of Alcohol and Drug Abuse Patient Records regulations: The Federal rules restrict any use of the information to criminally investigate or prosecute any alcohol or drug abuse patient.[facility]In the event this information is protected by the Federal Confidentiality of Alcohol and Drug Abuse Patient Records regulations: The Federal rules restrict any use of the information to criminally investigate or prosecute any alcohol or drug abuse patient.[facility]In the event this information is protected by the Federal Confidentiality of Alcohol and Drug Abuse Patient Records regulations: The Federal rules restrict any use of the information to criminally investigate or prosecute any alcohol or drug abuse patient.[facility]In the event this information is protected by the Federal Confidentiality of Alcohol and Drug Abuse Patient Records regulations: The Federal rules restrict any use of the information to criminally investigate or prosecute any alcohol or drug abuse patient.[facility]In the event this information is protected by the Federal Confidentiality of Alcohol and Drug Abuse Patient Records regulations: The Federal rules restrict any use of the information to criminally investigate or prosecute any alcohol or drug abuse patient.[facility] HospitalIn the event this information is protected by the Federal Confidentiality of Alcohol and Drug Abuse Patient Records regulations: The Federal rules restrict any use of the information to criminally investigate or prosecute any alcohol or drug abuse patient.[facility] HospitalIn the event this information is protected by the Federal Confidentiality of Alcohol and Drug Abuse Patient Records regulations: The Federal rules restrict any use of the information to criminally investigate or prosecute any alcohol or drug abuse patient.[facility] HospitalIn the event this information is protected by the Federal Confidentiality of Alcohol and Drug Abuse Patient Records regulations: The Federal rules restrict any use of the information to criminally investigate or prosecute any alcohol or drug abuse patient.[facility] HospitalIn the event this information is protected by the Federal Confidentiality of Alcohol and Drug Abuse Patient Records regulations: The Federal rules restrict any use of the information to criminally investigate or prosecute any alcohol or drug abuse patient.[facility] Care Teams (unrecognized sec tion and content) Team Status: Inactive Member Role Status Dates Ender RICKS MD Attending Provider Active Team Status: Active Member Role Status Dates Ender RICKS MD Attending Provider Active Team Status: Inactive Member Role Status Dates Ender RICKS MD Attending Provider, Referring Stuart venegas Active Saw Grinder Relationship Specialty Start Date End Date Moreno Oates MD [address] [place] [address] PCP - General Family Practice 02/13/16 Lamonte Weber [address] [place] [address] [phone] 11/17/06 Moreno Oates MD [address] [place] [address] [place] [address] Home Care Physician Family Practice 11/29/19 Moreno Oates MD [address] [facility] [address] [place], [place] [id number] Referring Family Practice 11/29/19 Sanjana Tarango MD 8927 [facility] [address] [place] [address] 38474 Consulting Infectious Diseases 11/29/19 Saw Grinder Relationship Specialty Start Date End Date Moreno Oates MD [address] [place], [place] 585411 PCP - General Family Practice 02/13/16 Lamonte Weber [address] [place] [address] [phone] 11/17/06 Moreno Oates MD [address] [facility] [address] [place], [place] 215151 Home Care Physician Family Practice 11/29/19 Moreno Oates MD [address] [facility] [address] [place], [place] [phone] Referring Family Practice 11/29/19 Sanjana Tarango MD 6257 [facility] [address] [place] [address] 09430 Consulting Infectious Diseases 11/29/19 Saw Grinder Relationship Specialty Start Date End Date Moreno Oates MD [address] [place], [place] 046821 PCP - General Family Practice 02/13/16 Lamonte Weber [address] [place] [address] [phone] 11/17/06 Moreno Oates MD [address] [facility] [address] [place] [phone] Home Care Physician Family Practice 11/29/19 Moreno Oates MD [address] [facility] [address] [place], [place] [phone] Referring Family Practice 11/29/19 Sanjana Tarango MD 9582 [facility] [address] [place] [address] 92852 Consulting Infectious Diseases 11/29/19 Saw Grinder Relationship Specialty Start Date End Date Moreno Oates MD [address] [place], [place] 951011 PCP - General Family Practice 02/13/16 Lamonte Weber [address] [place] [address] [phone] 11/17/06 Moreno Oates MD [address] [facility] [address] [place], [place] 198611 Home Care Physician Family Practice 11/29/19 Moreno Oates MD [address] [place] [address] [address] [place], [place] [phone] Referring Family Practice 11/29/19 Sanjana Tarango MD 5927 [facility] [address] [place] [address] 72673 Consulting Infectious Diseases 11/29/19 Saw Grinder Relationship Specialty Start Date End Date Moreno Oates MD [address] [place], [place] 853101 PCP - General Family Practice 02/13/16 Lamonte Weber [address] [place] [address] [id number] 11/17/06 Moreno Oates MD [address] [facility] [address] [place] [phone] Home Care Physician Family Practice 11/29/19 Moreno Oates MD [address] [facility] [address] [place], [place] [phone] Referring Family Practice 11/29/19 Sanjana Tarango MD 7527 [facility] [address] [place] [address] Consulting Infectious Diseases 11/29/19 Saw Grinder Relationship Specialty Start Date End Date Moreno Oates MD [address] [place], [place] 043771 PCP - General Family Practice 02/13/16 Lamonte Weber [address] [place] [address] 22015 11/17/06 Moreno Oates MD [address] [facility] [address] [place], [place] 910201 Home Care Physician Family Practice 11/29/19 Moreno Oates MD [address] [facility] [address] [place], [place] [phone] Referring Family Practice 11/29/19 Sanjana Tarango MD 3453 [facility] [address] [place] [address] Consulting Infectious Diseases 11/29/19 Saw Grinder Relationship Specialty Start Date End Date Moreno Oates MD [address] [place], [place] 427071 PCP - General Family Practice 02/13/16 Lamonte Weber [address] [place] [address] [id number] 11/17/06 Moreno Oates MD [address] [facility] [address] [place], [place] [phone] Home Care Physician Family Practice 11/29/19 Moreno Oates MD [address] [facility] [address] [place], [place] 38562281 Referring Family Practice 11/29/19 Sanjana Tarango MD 7602 [facility] [address] [place] [address] 02981 Consulting Infectious Diseases 11/29/19 Saw Grinder Relationship Specialty Start Date End Date Moreno Oates MD [address] [place], [place] 993221 PCP - General Family Practice 02/13/16 Lamonte Weber [address] [place] [address] [phone] 11/17/06 Moreno Oates MD [address] [facility] [address] [place], [place] [phone] Home Care Physician Family Practice 11/29/19 Moreno Oates MD [address] [facility] [address] [place], [place] [phone] Referring Family Practice 11/29/19 Sanjana Tarango MD 9042 [facility] [address] [place] [address] Consulting Infectious Diseases 11/29/19 Saw Grinder Relationship Specialty Start Date End Date Moreno Oates MD [address] [place], [place] 974111 PCP - General Family Practice 02/13/16 [place] [address] 11/17/06 Moreno Oates MD [address] [facility] [address] [place], [place] [phone] Home Care Physician Family Practice 11/29/19 Moreno Oates MD [address] [facility] [address] [place], [place] [phone] Referring Family Practice 11/29/19 Sanjana Tarango MD 3609 [facility] [address] [facility] [address] [place] [address] 74497 Consulting Infectious Diseases 11/29/19 Saw Grinder Relationship Specialty Start Date End Date Moreno Oates MD [address] [place] [address] PCP - General Family Practice 02/13/16 Lamonte Weber [address] [place] [address] [id number] 11/17/06 Moreno Oates MD [address] [facility] [address] [place], [place] [phone] Home Care Physician Family Practice 11/29/19 Moreno Oates MD [address] [facility] [address] [place], [place] 985851 Referring Family Practice 11/29/19 Sanjana Tarango MD 360 [facility] [address] [facility] [address] [place] [address] 34762 Consulting Infectious Diseases 11/29/19 Saw Grinder Relationship Specialty Start Date End Date Moreno Oates MD [address] [place] [address] PCP - General Family Practice 02/13/16 Lamonte [address] [place], [place] [id number] 11/17/06 Moreno Oates MD [address] [facility] [address] [place], [place] 958331 Home Care Provider Family Practice 11/29/19 Moreno Oates MD [address] [facility] [address] [place], [place] [phone] Referring Family Practice 11/29/19 Sanjana Tarango MD 9309 [facility] [address] [facility] [address] [place] [address] 34183 Consulting Infectious Diseases 11/29/19 Saw Grinder Relationship Specialty Start Date End Date Moreno Oates MD [address] [place] [address] PCP - General Family Practice 02/13/16 Lamonte Weber [address] [place] [address] 64021 11/17/06 Moreno Oates MD [address] [facility] [address] [place], [place] 315701 Home Care Provider Family Practice 11/29/19 Moreno Oates MD [address] [facility] [address] [place], [place] 909971 Referring Family Practice 11/29/19 Sanjana Tarango MD 1351 [facility] [address] [facility] [address] [place] [address] 49781 Consulting Infectious Diseases 11/29/19 Saw Grinder Relationship Specialty Start Date End Date Moreno Oates MD [address] [place] [address] PCP - General Family Medicine 02/13/16 Lamonte Weber [address] [place] [address] [id number] 11/17/06 Moreno Oates MD [address] [facility] [address] [place], [place] 313231 Home Care Provider Family Medicine 11/29/19 Moreno Oates MD [address] [facility] [address] [place], [place] 112051 Referring Family Medicine 11/29/19 Sanjana Tarango MD 3609 [facility] [address] [facility] [address] [place] [address] 83349 Consulting Infectious Diseases 11/29/19 Saw Grinder Relationship Specialty Start Date End Date Moreno Oates MD [address] [place] [address] PCP - General Family Medicine 02/13/16 Lamonte Weber [address] [place] [address] 75928 11/17/06 Moreno Oates MD [address] [facility] [place] [address] Home Care Provider Family Medicine 11/29/19 Moreno Oates MD [address] [facility] [address] [place], [place] 243751 Referring Family Medicine 11/29/19 Sanjana Tarango MD 2769 [facility] [address] [facility] [address] [place] [address] 33392 Consulting Infectious Diseases 11/29/19 Saw Grinder Relationship Specialty Start Date End Date Moreno Oates MD [address] [place] [address] PCP - General Family Medicine 02/13/16 Lamonte Weber [address] [place] [address] [id number] 11/17/06 Moreno Oates MD [address] [facility] [place] [address] Home Care Provider Family Medicine 11/29/19 Moreno Oates MD [address] [facility] [address] [place], [place] 101381 Referring Family Medicine 11/29/19 Sanjana Tarango MD 3609 [facility] [address] [facility] [address] [place] [address] 86012 Consulting Infectious Diseases 11/29/19 Saw Grinder Relationship Specialty Start Date End Date Moreno Oates MD [address] [place] [address] PCP - General Family Medicine 02/13/16 Lamonte Weber [address] [place] [address] [id number] 11/17/06 Moreno Oates MD [address] [facility] [address] [place], [place] 278301 Home Care Provider Family Medicine 11/29/19 Moreno Oates MD [address] [facility] [address] [place], [place] 367671 Referring Family Medicine 11/29/19 Sanjana Tarango MD 3607 [facility] [address] [facility] [address] [place] [address] 82745 Consulting Infectious Diseases 11/29/19 Saw Grinder Relationship Specialty Start Date End Date Moreno Oates MD [address] [place] [address] PCP - General Family Medicine 02/13/16 Lamonte Weber [address] [place] [address] 45058 11/17/06 Moreno Oates MD [address] [facility] [address] [place] [phone] Home Care Provider Family Medicine 11/29/19 Moreno Oates MD [address] [facility] [address] [place], [place] 14746281 Referring Family Medicine 11/29/19 Sanjana Tarango MD 3609 [facility] [address] [facility] [address] [place] [address] 46032 Consulting Infectious Diseases 11/29/19 Saw Grinder Relationship Specialty Start Date End Date Moreno Oates MD [address] [place] [address] PCP - General Family Medicine 02/13/16 Lamonte Weber [address] [place] [address] [phone] 11/17/06 Moreno Oates MD [address] [facility] [address] [place], [place] 457021 Home Care Provider Family Medicine 11/29/19 Moreno Oates MD [address] [facility] [address] [place], [place] 22923281 Referring Family Medicine 11/29/19 Sanjana Tarango MD 3600 [facility] [address] [facility] [address] [place] [address] 74172 Consulting Infectious Diseases 11/29/19 Saw Grinder Relationship Specialty Start Date End Date Moreno Oates MD [address] [place] [address] PCP - General Family Medicine 02/13/16 Lamonte Weber [address] [place] [address] [id number] 11/17/06 Moreno Oates MD [address] [facility] [address] [place] [phone] Home Care Provider Family Medicine 11/29/19 Moreno Oates MD [address] [facility] [address] [place], [place] 918881 Referring Family Medicine 11/29/19 Sanjana Tarango MD 4329 [facility] [address] [facility] [address] [place] [address] 41403 Consulting Infectious Diseases 11/29/19 Saw Grinder Relationship Specialty Start Date End Date Moreno Oates MD [address] [place] [address] PCP - General Family Medicine 02/13/16 Lamonte Weber [address] [place] [address] 46751 11/17/06 Moreno Oates MD [address] [facility] [address] [place], [place] 345981 Home Care Provider Family Medicine 11/29/19 Moreno Oates MD [address] [facility] [address] [place], [place] 331631 Referring Family Medicine 11/29/19 Sanjana Tarango MD 0733 [facility] [address] [facility] [address] [place] [address] 04259 Consulting Infectious Diseases 11/29/19 Saw Grinder Relationship Specialty Start Date End Date Moreno Oates MD [address] [place] [address] PCP - General Family Medicine 02/13/16 Lamonte Weber [address] [place] [address] [id number] 11/17/06 Moreno Oates MD [address] [facility] [address] [place] [phone] Home Care Provider Family Medicine 11/29/19 Moreno Oates MD [address] [place] [address] [address] [place], [place] [phone] Referring Family Medicine 11/29/19 Sanjana Tarango MD 1316 [facility] [address] [facility] [address] [place] [address] 12592 Consulting Infectious Diseases 11/29/19 Saw Grinder Relationship Specialty Start Date End Date Moreno Oates MD [address] [place], [place] 554951 PCP - General Family Medicine 02/13/16 Lamonte Weber [address] [place] [address] 60758 11/17/06 Moreno Oates MD [address] [place] [address] [address] [place], [place] 919381 Home Care Provider Family Medicine 11/29/19 Moreno Oates MD [address] [place] [address] [address] [place], [place] 639611 Referring Family Medicine 11/29/19 Sanjana Tarango MD 0268 [facility] [address] [facility] [address] [place] [address] 26306 Consulting Infectious Diseases 11/29/19 Saw Grinder Relationship Specialty Start Date End Date Moreno Oates MD [address] [place] [address] PCP - General Family Medicine 02/13/16 Lamonte Weber [address] [place] [address] 63284 11/17/06 Moreno Oates MD [address] [place] [address] [address] [place] [phone] Home Care Provider Family Medicine 11/29/19 Moreno Oates MD [address] [facility] [address] [place], [place] 41523281 Referring Family Medicine 11/29/19 Sanjana Tarango MD 9470 [facility] [address] [facility] [address] [place] [address] 99555 Consulting Infectious Diseases 11/29/19 Saw Grinder Relationship Specialty Start Date End Date Moreno Oates MD [address] [place], [place] 054861 PCP - General Family Medicine 02/13/16 Lamonte Weber [address] [place] [address] 24410 11/17/06 Moreno Oates MD [address] [facility] [address] [place], [place] 346431 Home Care Provider Family Medicine 11/29/19 Moreno Oates MD [address] [place] [address] [address] [place], [place] [phone] Referring Family Medicine 11/29/19 Sanjana Tarango MD 6035 [facility] [address] [facility] [address] [place] [address] 56996 Consulting Infectious Diseases 11/29/19 Saw Grinder Relationship Specialty Start Date End Date Moreno Oates MD [address] [place] [address] PCP - General Family Medicine 02/13/16 Lamonte Weber [address] [place] [address] [id number] 11/17/06 Moreno Oates MD [address] [facility] [address] [place] [phone] Home Care Provider Family Medicine 11/29/19 Moreno Oates MD [address] [facility] [address] [place], [place] 479751 Referring Family Medicine 11/29/19 Sanjana Tarango MD 3609 [facility] [address] [facility] [address] [place] [address] 44122 Consulting Infectious Diseases 11/29/19 Team Status: Inactive Member Role Status Dates Ender Oates MD Attending Provider Active Team Status: Inactive Member Role Status Dates Ender Oates MD Attending Provider, Referring Prov ider Active Team Status: Inactive Member Role Status Dates Chet Angel Attending Provider Active Saw Grinder Relationship Specialty Start Date End Date Moreno Oates MD [address] [place], [place] 795991 PCP - General Family Medicine 02/13/16 Lamonte Weber [address] [place], [place] [phone] 11/17/06 Moreno Oates MD [address] [facility] [place] [address] Home Care Provider Family Medicine 11/29/19 Moreno Oates MD [address] [facility] [place] [address] Referring Family Medicine 11/29/19 Sanjana Tarango MD 3602 [facility] [address] [facility] [address] [place] [address] 21335 Consulting Infectious Diseases 11/29/19 Saw Grinder Relationship Specialty Start Date End Date Moreno Oates MD [address] [place], [place] 809221 PCP - General Family Medicine 02/13/16 Lamonte Weber [address] [place], [place] [phone] 11/17/06 Moreno Oates MD [address] [facility] [place] [address] Home Care Provider Family Medicine 11/29/19 Moreno Oates MD [address] [facility] [place] [address] Referring Family Medicine 11/29/19 Sanjana Tarango MD 3605 [facility] [address] [facility] [address] [place] [address] 93268 Consulting Infectious Diseases 11/29/19 Saw Grinder Relationship Specialty Start Date End Date Moreno Oates MD [address] [place], [place] 012021 PCP - General Family Medicine 02/13/16 Lamonte Weber [address] [place], [place] [phone] 11/17/06 Moreno Oates MD [address] [facility] [place] [address] Home Care Provider Family Medicine 11/29/19 Moreno Oates MD [address] [facility] [place] [address] Referring Family Medicine 11/29/19 Sanjana Tarango MD 360 [facility] [address] [place] [address] 82107 Consulting Infectious Diseases 11/29/19 Saw Grinder Relationship Specialty Start Date End Date Moreno Oates MD [address] [place], [place] [id number] PCP - General Family Medicine 02/13/16 Lamonte Weber [address] [place] [address] 11/17/06 Moreno Oates MD [address] [facility] [place] [address] Home Care Provider Family Medicine 11/29/19 Moreno Oates MD [address] [facility] [place] [address] Referring Family Medicine 11/29/19 Sanjana Tarango MD 3602 [facility] [address] [facility] [address] [place] [address] 71937 Consulting Infectious Diseases 11/29/19 Saw Grinder Relationship Specialty Start Date End Date Moreno Oates MD [address] [place], [place] [phone] PCP - General Family Medicine 02/13/16 Lamonte Weber [address] [place], [place] [id number] 11/17/06 Moreno Oates MD [address] [facility] [place] [address] Home Care Provider Family Medicine 11/29/19 Moreno Oates MD [address] [facility] [place] [address] Referring Family Medicine 11/29/19 Sanjana Tarango MD 3605 [facility] [address] [place] [address] 94970 Consulting Infectious Diseases 11/29/19 Saw Grinder Relationship Specialty Start Date End Date Moreno Oates MD [address] [place], [place] [id number] PCP - General Family Medicine 02/13/16 Lamonte Weber [address] [place] [address] 11/17/06 Moreno Oates MD [address] [facility] [address] [place], [place] 944701 Home Care Provider Family Medicine 11/29/19 Moreno Oates MD [address] [facility] [place] [address] Referring Family Medicine 11/29/19 Sanjana Tarango MD 3608 [facility] [address] [place] [address] [place] [address] 24304 Consulting Infectious Diseases 11/29/19 Saw Grinder Relationship Specialty Start Date End Date Moreno Oates MD [address] [place], [place] [id number] PCP - General Family Medicine 02/13/[address] [id number] 11/17/06 Moreno Oates MD [address] [facility] [address] [place], [place] [phone] Home Care Provider Family Medicine 11/29/19 Moreno Oates MD [address] [facility] [place] [place] [address] Referring Family Medicine 11/29/19 Sanjana Tarango MD 3605 [facility] [address] [facility] [address] [place] [address] 88283 Consulting Infectious Diseases 11/29/19 Saw Grinder Relationship Specialty Start Date End Date Moreno Oates 1 [facility] [place], [place] [id number] PCP - General 02/14/16 Saw Grinder Relationship Specialty Start Date End Date Moreno Oates MD [address] [place], [place] [id number] PCP - General Family Medicine 02/13/16 Lamonte Weber [address] [place], [place] [phone] 11/17/06 Moreno Oates MD [address] [facility] [address] [place], [place] 543021 Home Care Provider Family Medicine 11/29/19 Moreno Oates MD [address] [facility] [place] [address] Referring Family Medicine 11/29/19 Sanjana Tarango MD 5690 [facility] [address] [place] [address] [place] [address] 49692 Consulting Infectious Diseases 11/29/19 Saw Grinder Relationship Specialty Start Date End Date Moreno Oates MD [address] [place] [address] 31593 PCP - General Family Medicine 02/13/16 Lamonte Weber [address] [place] [address] 11/17/06 Moreno Oates MD [address] [facility] [address] [place], [place] 062021 Home Care Provider Family Medicine 11/29/19 Moreno Oates MD [address] [facility] [address] [place], [place] 027161 Referring Family Medicine 11/29/19 Sanjana Tarango MD 3608 [facility] [address] [place] [address] 44122 Consulting Infectious Diseases 11/29/19 Saw Grinder Relationship Specialty Start Date End Date Moreno Oates MD [address] [place] [address] PCP - General Family Medicine 02/13/16 Lamonte Weber [address] [place] [address] 11/17/06 Moreno Oates MD [address] [facility] [address] [place], [place] 809231 Home Care Provider Family Medicine 11/29/19 Moreno Oates MD [address] [facility] [address] [place], [place] 365941 Referring Family Medicine 11/29/19 [place] [address] [place] [address] 06546 Consulting Infectious Diseases 11/29/19 Saw Grinder Relationship Specialty Start Date End Date Moreno Oates MD [address] [place] [address] PCP - General Family Medicine 02/13/16 Lamonte Weber [address] [facility] [place] [address] 11/17/06 Moreno Oates MD [address] [facility] [address] [place], [place] 645841 Home Care Provider Family Medicine 11/29/19 Moreno Oates MD [address] [facility] [address] [place], [place] 783101 Referring Family Medicine 11/29/19 Sanjana Tarango MD 360 [facility] [address] [facility] [address] [place] [address] 50368 Consulting Infectious Diseases 11/29/19 Saw Grinder Relationship Specialty Start Date End Date Moreno Oates MD [address] [place] [address] PCP - General Family Medicine 02/13/16 Lamonte Weber [address] [place], [place] [phone] 11/17/06 Moreno Oates MD [address] [facility] [address] [place], [place] 296791 Home Care Provider Family Medicine 11/29/19 Moreno Oates MD [address] [facility] [place] [address] Referring Family Medicine 11/29/19 Sanjana Tarango MD 3609 [facility] [address] [place] [address] [place] [address] 27251 Consulting Infectious Diseases 11/29/19 Saw Grinder Relationship Specialty Start Date End Date Moreno Oates MD [address] [place] [address] PCP - General Family Medicine 02/13/16 Lamonte Weber [address] [place], [place] [phone] 11/17/06 Moreno Oates MD [address] [facility] [address] [place], [place] 926581 Home Care Provider Family Medicine 11/29/19 Moreno Oates MD [address] [facility] [place] [address] Referring Family Medicine 11/29/19 Sanjana Tarango MD 3609 [facility] [address] [facility] [address] [place] [address] 75891 Consulting Infectious Diseases 11/29/19 Saw Grinder Relationship Specialty Start Date End Date Moreno Oates MD [address] [place] [address] PCP - General Family Medicine 02/13/16 Lamonte Weber [address] [place] [address] 11/17/06 Moreno Oates MD [address] [facility] [place] [place] [address] Home Care Provider Family Medicine 11/29/19 Moreno Oates MD [address] [facility] [place] [address] Referring Family Medicine 11/29/19 Sanjana Tarango MD 3609 [facility] [address] [facility] [address] [place] [address] 96234 Consulting Infectious Diseases 11/29/19 Saw Grinder Relationship Specialty Start Date End Date Moreno Oates MD [address] [place] [address] PCP - General Family Medicine 02/13/16 Lamonte Weber [address], [place] [id number] 11/17/06 Moreno Oates MD [address] [facility] [address] [place], [place] 423281 Home Care Provider Family Medicine 11/29/19 Moreno Oates MD [address] [facility] [place] [address] Referring Family Medicine 11/29/19 Sanjana Tarango MD [address] [facility] [address] [place] [place] [address] Consulting Infectious Diseases 11/29/19 Saw Grinder Relationship Specialty Start Date End Date Moreno Oates MD [address] [place] [address] [id number] PCP - General Family Medicine 02/13/16 Lamonte Weber [address] [place] [address] [phone] 11/17/06 Moreno Oates MD [address] [facility] [address] [place], [place] [phone] Home Care Provider Family Medicine 11/29/19 Moreno Oates MD [address] [facility] [address] [place], [place] 55[address]61 Referring Family Medicine 11/29/19 Sanjana Tarango MD [address] [facility] [address] [place], [place] [id number] Consulting Infectious Diseases 11/29/19 Saw Grinder Relationship Specialty Start Date End Date Moreno Oates MD [address] [place] [address] PCP - General Family Medicine 02/13/16 Lamonte Weber [address] [place] [address] 11/17/06 Moreno Oates MD [address] [facility] [place] [address] Home Care Provider Family Medicine 11/29/19 Moreno Oates MD [address] [facility] [place] [address] Referring Family Medicine 11/29/19 Sanjana Tarango MD [address] [place] [address] Consulting Infectious Diseases 11/29/19 Saw Grinder Relationship Specialty Start Date End Date Moreno Oates MD [address] [place] [address] PCP - General Family Medicine 02/13/16 Lamonte Weber [address] [place] [address] 11/17/06 Moreno Oates MD [address] [facility] [address] [place], [place] [address]81 Home Care Provider Family Medicine 11/29/19 Moreno Oates MD [address] [facility] [address] [place], [place] 214381 Referring Family Medicine 11/29/19 Sanjana Tarango MD [address] [facility] [address] [place] [address] Consulting Infectious Diseases 11/29/19 Saw Grinder Relationship Specialty Start Date End Date Moreno Oates MD [address] [place] [address] PCP - General Family Medicine 02/13/16 Lamonte Weber [address] [place] [address] 11/17/06 Moreno Oates MD [address] [facility] [place] [address] Home Care Provider Family Medicine 11/29/19 Moreno Oates MD [address] [facility] [place] [address] Referring Family Medicine 11/29/19 Sanjana Tarango MD [address] [facility] [address] [place] [address] [place] [address] Consulting Infectious Diseases 11/29/19 Saw Grinder Relationship Specialty Start Date End Date Moreno Oates MD [address] [place] [address] PCP - General Family Medicine 02/13/16 Lamonte Weber [address] [facility], [place] [phone] 11/17/06 Moreno Oates MD [address] [facility] [address] [place], [place] 418[address] Home Care Provider Family Medicine 11/29/19 Moreno Oates MD [address] [facility] [address] [place], [place] 979391 Referring Family Medicine 11/29/19 Sanjana Tarango MD [address] [facility] [address] [place] [place] [address] 18455 Consulting Infectious Diseases 11/29/19 Saw Grinder Relationship Specialty Start Date End Date Moreno Oates MD [address] [place] [address] PCP - General Family Medicine 02/13/16 Lamonte Weber [address], [place] [phone] 11/17/06 Moreno Oates MD [address] [facility] [place] [address] Home Care Provider Family Medicine 11/29/19 Moreno Oates MD [address] [facility] [place] [address] Referring Family Medicine 11/29/19 Sanjana Tarango MD [address] [facility] [address] [place] [address] [place] [address]873 Consulting Infectious Diseases 11/29/19 Saw Grinder Relationship Specialty Start Date End Date Moreno Oates MD [address] [place] [address] PCP - General Family Medicine 02/13/16 Lamonte Weber [address], [place] [id number] 11/17/06 Moreno Oates MD [address] [facility] [address] [place], [place] [id number] Home Care Provider Family Medicine 11/29/19 Moreno Oates MD [address] [facility] [address] [place], [place] [phone] Referring Family Medicine 11/29/19 Sanjana Tarango MD [address] [facility] [address] [place] [address] [place] [address] 23998 Consulting Infectious Diseases 11/29/19 Saw Grinder Relationship Specialty Start Date End Date Moreno Oates MD [address] [place] [address] PCP - General Family Medicine 02/13/16 Lamonte Weber [address] [place] [address] 11/17/06 Moreno Oates MD [address] [facility] [address] [place], [place] [id number] Home Care Provider Family Medicine 11/29/19 Moreno Oates MD [address] [facility] [address] [place], [place] 237211 Referring Family Medicine 11/29/19 Sanjana Tarango MD [address] [facility] [place] [address] Consulting Infectious Diseases 11/29/19 Saw Grinder Relationship Specialty Start Date End Date Moreno Oates MD [address] [place] [address] PCP - General Family Medicine 02/13/16 Lamonte Weber [address] [place] [address] 11/17/06 Moreno Oates MD [address] [facility] [address] [place], [place] 932571 Home Care Provider Family Medicine 11/29/19 Moreno Oates MD [address] [facility] [address] [place], [place] 729041 Referring Family Medicine 11/29/19 Sanjana Tarango MD [address] [facility] [address] [place] [address] [place] [address] 93427 Consulting Infectious Diseases 11/29/19 Saw Grinder Relationship Specialty Start Date End Date Moreno Oates MD [address] [place] [address] PCP - General Family Medicine 02/13/16 Lamonte Weber [address] [place] [address] 11/17/06 Moreno Oates MD [address] [facility] [address] [place], [place] 115451 Home Care Provider Family Medicine 11/29/19 Moreno Oates MD [address] [facility] [address] [place], [place] 704071 Referring Family Medicine 11/29/19 Sanjana Tarango MD [address] [facility] [address] [place] [address] Consulting Infectious Diseases 11/29/19 Saw Grinder Relationship Specialty Start Date End Date Moreno Oates MD [address] [place] [address] PCP - General Family Medicine 02/13/16 Lamonte Weber [address] [place] [address] 11/17/06 Moreno Oates MD [address] [facility] [place] [address] Home Care Provider Family Medicine 11/29/19 Moreno Oates MD [address] [facility] [place] [address] Referring Family Medicine 11/29/19 Sanjana Tarango MD [address] [facility] [address] [place] [address] [place] [address]1000 Consulting Infectious Diseases 11/29/19 Saw Grinder Relationship Specialty Start Date End Date Moreno Oates MD [address] [place] [address] PCP - General Family Medicine 02/13/16 Lamonte Weber [address] [place] [address] 11/17/06 Moreno Oates MD [address] [facility] [address] [place], [place] 715051 Home Care Provider Family Medicine 11/29/19 Moreno Oates MD [address] [facility] [place] [address] Referring Family Medicine 11/29/19 Sanjana Tarango MD [address] [facility] [address] [place] [address] [place] [address]38 Consulting Infectious Diseases 11/29/19 Saw Grinder Relationship Specialty Start Date End Date Moreno Oates MD [address] [place] [address] PCP - General Family Medicine 02/13/16 Lamonte Weber [address] [place] [facility] [place] [address] 11/17/06 Moreno Oates MD [address] [facility] [place] [address] Home Care Provider Family Medicine 11/29/19 Moreno Oates MD [address] [facility] [place] [address] Referring Family Medicine 11/29/19 Sanjana Tarango MD [address] [facility] [address] [place] [place] [address]653 Consulting Infectious Diseases 11/29/19 Saw Grinder Relationship Specialty Start Date End Date Moreno Oates MD [address] [place] [address] PCP - General Family Medicine 02/13/16 Lamonte Weber [address] [facility], [place] [phone] 11/17/06 Moreno Oates MD [address] [facility] [address] [place], [place] 990711 Home Care Provider Family Medicine 11/29/19 Moreno Oates MD [address] [facility] [address] [place], [place] 043941 Referring Family Medicine 11/29/19 Sanjana Tarango MD [address] [facility] [address] [place] [place] [address] 8[address]66 Consulting Infectious Diseases 11/29/19 Saw Grinder Relationship Specialty Start Date End Date Moreno Oates MD [address] [place] [place], [place] 051551 PCP - General Family Medicine 02/13/16 Lamonte Weber [address] [place] [address] [phone] 11/17/06 Moreno Oates MD [address] [facility] [place] [address] Home Care Provider Family Medicine 11/29/19 Moreno Oates MD [address] [facility] [place] [address] Referring Family Medicine 11/29/19 Sanjana Tarango MD [address] [facility] [address] [place] [address]23 Consulting Infectious Diseases 11/29/19 Saw Grinder Relationship Specialty Start Date End Date Moreno Oates MD [address] [place] [address] PCP - General Family Medicine 02/13/16 Lamonte Weber [address] [place] [address] 11/17/06 Moreno Oates MD [address] [facility] [place] [address] Home Care Provider Family Medicine 11/29/19 Moreno Oates MD [address] [facility] [address] [place], [place] [address]321 Referring Family Medicine 11/29/19 Sanjana Tarango MD [address] [place] [address] Consulting Infectious Diseases 11/29/19 Saw Grinder Relationship Specialty Start Date End Date Moreno Oates MD [address] [place] [address] PCP - General Family Medicine 02/13/16 Lamonte Weber [address], [place] [id number] 11/17/06 Moreno Oates MD [address] [facility] [address] [place], [place] 401271 Home Care Provider Family Medicine 11/29/19 Moreno Oates MD [address] [facility] [place] [address] Referring Family Medicine 11/29/19 Sanjana Tarango MD [address] [facility] [address] [place] [address]50 Consulting Infectious Diseases 11/29/19 Carlos Mei APRN.SENIOR CONSUMER INSIGHTS CONSULTANT [address] [facility] [address] [place], [place] [id number] Auto Roller Internal Medicine 05/08/24 Saw Grinder Relationship Specialty Start Date End Date Moreno Oates MD [address] [place] [address] PCP - General Family Medicine 02/13/16 Lamonte Weber [address] [place] [address] [phone] 11/17/06 Moreno Oates MD [address] [facility] [address] [place], [place] 014871 Home Care Provider Family Medicine 11/29/19 Moreno Oates MD [address] [facility] [address] [place], [place] [phone] Referring Family Medicine 11/29/19 Sanjana Tarango MD [facility] [place] [address] Consulting Infectious Diseases 11/29/19 Carlos Mei, WAYS OPERATOR.SENIOR CONSUMER INSIGHTS CONSULTANT [address] [facility] [address] [place], [place] 110411 Auto Roller Internal Medicine 05/08/24 Saw Grinder Relationship Specialty Start Date End Date Moreno Oates MD [address] [facility] [place], [place] 97[address]71 PCP - General Family Medicine 02/13/16 Lamonte Weber [address] [place] [address] [place] [address] 11/17/06 Moreno Oates MD [address] [facility] [address] [place], [place] 808791 Home Care Provider Family Medicine 11/29/19 Moreno Oates MD [address] [facility] [address] [place], [place] 459631 Referring Family Medicine 11/29/19 [place] [address] [place] [address] [place] [address] Consulting Infectious Diseases 11/29/19 Carlos Mei APRN.SENIOR CONSUMER INSIGHTS CONSULTANT [address] [facility] [address] [place], [place] 779[address] Auto Roller Internal Medicine 05/08/24 Team Status: Inactive Member Role Status Dates Ender RICKS MD Attending Provider Active Start: May 11, 2024 End: May 11, 2024 Team Status: Active Member Role Status Dates Royer RICKS Attending Provider Active Star t: July 04, 2024 Team Status: Active Member Role Status Dates Ender RICKS MD Attending Provider Active Start: July 12, 2024 Team Status: Inactive Member Role Status Dates Royer RICKS Attending Provider Active Star t: August 10, 2024 End: August 10, 2024 Goals (unrecognized section and content) Goals may be documented in a n alternate sectionGoals may be documented in an alternate sectionGoals may be documented in an alternate sectionGoals may be documented in an alternate sectionGoals may be documented in an alternate sectionGoals may be documented in an alternate sectionGoals may be documented in an alternate sectionGoals may be documented in an alternate sectionGoals may be documented in an alternate sectionGoals may be documented in an alternate sectionGoals may be documented in an alternate sectionGoals may be documented in an alternate sectionGoals may be documented in an alternate sectionGoals may be documented in an alternate sectionGoals may be documented in an alternate sectionGoals may be documented in an alternate sectionGoals may be documented in an alternate sectionGoals may be documented in an alternate sectionGoals may be documented in an alternate sectionGoals may be documented in an alternate sectionGoals may be documented in an alternate sectionGoals may be documented in an alternate sectionGoals may be documented in an alternate sectionGoals may be documented in an alternate sectionGoals may be documented in an alternate sectionGoals may be documented in an alternate sectionGoals may be documented in an alternate sectionGoals may be documented in an alternate sectionGoals may be documented in an alternate sectionGoals may be documented in an alternate sectionGoals may be documented in an alternate section FOR RECORDS PERTAINING TO PATIENTS WHO ARE OR HAVE BEEN ENROLLED IN A CHEMICAL DEPENDENCY/SUBSTANCEABUSE PROGRAM, SOME INFORMATION MAY BE OMITTED. This clinical summary was aggregated from multiple sources. Caution should be exercised in using it in the provision of clinical care. This summary normalizes information from multiple sources, and as a consequence, information in this document may materially change the coding, format and clinical context of patient data. In addition, data may be omitted in some cases. CLINICAL DECISIONS SHOULD BE BASED ON THE PRIMARY CLINICAL RECORDS. [employer] provides no warranty or guarantee of the accuracy or completeness of information in this document.
[2024-11-09 08:23] LABS: Hematocrit 39.8 % (37-47); Hemoglobin 12.8 g/dL (12.0-15.0); Mean Corp Hgb Conc 32.2 g/dL (32-36); Mean Corpuscular Hgb 32.2 pg (27.0-32.0); Mean Platelet Vol. 10.3 fl (6.2-12.0); Platelet Count 177 K/mm3 (150-450); RBC Distribution Width CV 14.6 % (11.6-14.6); RBC Distribution Width SD 54.1 fl (35.1-43.9); Red Blood Count 3.98 M/mm3 (4.2-5.4); White Blood Count 4.9 K/mm3 (4.4-11.0)
[2024-11-09 08:37] LABS: AST(SGOT) 20 U/L (<=31); Alanine Aminotransfer ALT/SGPT 16 U/L (<=34); Albumin, Serum 3.3 g/dL (3.4-4.8); Alkaline Phosphatase 94 U/L (35-104); Anion Gap 10 (5-15); BUN 19 mg/dL (4-19); BUN/Creat Ratio 25.4 RATIO (10-20); Calcium,Total 8.6 mg/dL (7.6-11.0); Carbon Dioxide 26.1 mmol/L (21.0-32.0); Chloride 103 mmol/L (98-108); Creatinine, Serum 0.75 mg/dL (0.70-1.20); EST Glomerular Filtration Rate 87 (>60); Globulin 3.4 g/dL (2.2-4.2); Glucose 107 mg/dL (70-99); Protein, Total 6.7 g/dL (5.9-8.4); Sodium Level 139 mmol/L (133-145); Total Bilirubin 0.32 mg/dL (0.00-1.30)
== END ==
LOC: OLS.ACW300 05:00
PROVIDERS: Visit Provider Family Medicine
DX: G35 Multiple sclerosis (principal); M00.861 Arthritis due to other bacteria, right knee; R53.1 Weakness; R62.7 Adult failure to thrive; J44.9 Chronic obstructive pulmonary disease, unspecified
CPT/HCPCS: 36415; 80053; 85027

== ENCOUNTER → 2024-12-09 05:00 | Outpatient (REF) | payer MEDICARE, MEDICAID, SELFPAY ==
--- OUTSIDE RECORDS SUMMARY | 2024-12-09 04:36 | XMS RPT_ITS | CCD ---
Author Organization [facility] Care Team Providers Care Editorial Writer Name Role Phone Moreno Oates Primary Care Provider Lamonte Weber Unavailable Moreno Oates MD Primary Care Provider Moreno Oates MD Unavailable Mroeno Oates MD Unavailable Sukhdeep YEE, Sanjana Unavailable Lamonte Weber Unavailable Sanjana Tarango MD Unavailable Lamonte Weber Unavailable Moreno Oates MD Primary Care Provider Moreno Oates MD Unavailable Moreno Oates MD Unavailable Sanjana Tarango MD Unavailable Moreno Oates MD Unavailable Lamonte Weber Unavailable [phone] Moreno Oates MD Primary Care Provider Moreno Oates MD Unavailable Moreno Oates MD Unavailable Moreno Oates Referring Unavailable Moreno Oates Attending Unavailable Moreno Oates Primary Care Unavailable Moreno Oates Primary Care Unavailable Moreno Oates Referring Unavailable Moreno Oates Attending Unavailable Lamonte Weber Unavailable Gracie YEE, Moreno Gong Primary Care Provider [phone] Gracie YEE, Moreno R Unavailable Gracie YEE, Moreno R Unavailable Sukhdeep YEE, Sanjana Unavailable PROVIDER, UNKNOWN Referring Unavailable MORENO OATES Primary Care Unavailable Moreno Oates Primary Care Provider [phone] KENJI DO~[id number], KENJIJESSICA Rodríguez Attendi ng Unavailable KENJI DO~[id number], KENJI ENDER A Admitti ng Unavailable MORENO OATES Primary Care Unavailable Gracie YEE, Moreno Gong Primary Care Provider [phone] Sigifredo FABRICATION LEAD.ENERGY DERIVATIVES TRADER, Carlos Unavailable Ender Oates MD Attending Provider Royer Maldonado Attending Provider UnavailMORENO German Primary Care Unavailable RED GUIDRY Admitting Unavailable RED GUIDRY Attending Unavailable Gracie RICKS, Ender Attending Unavailable Gracie RICKS, Ender Attending Unavailable Gracie RICKS, Ender Attending Unavailable Gracie RICKS, Ender Attending Unavailable Merary RICKS, Royer Attending Unavailable Gracie RICKS, Ender Attending Unavailable Merary RICKS, Ryoer Attending Unavailable Gracie RICKS, Ender Attending Unavailable Gracie RICKS, Ender Attending Unavailable Gracie RICKS, Ender Attending Unavailable Gracie RICKS, Ender Referring Unavailable Royer Maldonado Attending Unavailable Royer Maldonado Attending Unavailable Allergies Allergy Classification Reported Allergen(s) [...] MINOPHEN] Drug Allergy 08-15-19 17 GI Upset [place], [place] (5 sources) Cephalexin Drug Allergy 12-12-19 15 Anxiety [place], [place] (5 sources) Nitrofurantoin Drug Allergy 12-12-19 15 [place], [place] (20 sources) gabapentin; Translations: [GABAPENTIN] Drug Allergy 10-08-19 [address] [facility] Work Phone: (20 sources) NITROFURANTOIN, MACROCRYSTALS / Nitrofurantoin, Monohydrate; Translations: [NITROFURANTOIN MONOHYD/M-CRYST] Drug Allergy 02-13-20 16 [facility] (20 sources) Non-steroidal anti-inflammatory agent; Translations: [NSAIDS (NON-STEROIDAL ANTI-INFLAMMATORY DRUG)] Drug Intolerance 06-06-[address] [facility] (20 sources) traMADol; Translations: [TRAMADOL] Drug Allergy 01-23-20 17 Contraindicati on-Medical Surgical [facility] (20 sources) Non-steroidal anti-inflammatory agent Drug Intolerance 06-06-[address] [facility] (2 sources) Nitrofurantoin Drug Allergy 02-13-20 16 [facility] Medications Current Medications Medication Drug Class(es) Dates Sig (Normalized) Sig (Original) acetaminophen 325 mg / oxyCODONE hydrochloride 5 mg oral tablet (20 sources) Opioid Agonist Start: 05-24-2024 End: 12-18-2024 take 1 tablet by mouth every six hours oxyCODONE-acetami nophen (PERCOCET) 5-325 mg tablet 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 120 tablet 11/18/2024 12/18/2024 Active Start: 12-30-2023 End: 05-22-2024 take 1 tablet [...] th every 6 hours for 28 days. albuterol 0.833 mg/ml / ipratropium bromide 0.167 mg/ml inhalant solution (2 sources) Anticholinergic, beta2-Adrenergic Agonist Start: 0 End: 0 ipratropium-albute rol (DUONEB) nebulizer solution 1 ampule amoxicillin 875 mg / clavulanate 125 mg oral tablet (2 sources) Penicillin-class Antibacterial Start: 0 End: 0 take 1 tablet by mouth every twelve hours amoxicillin-clavul anate (AUGMENTIN) 875-125 MG per tablet Take 1 [...] ambulate due to knee Power Mobility Device "scooter". Face to face evaluation 12/30/2018 Diagnosis: (T84.018S, [...] ambulate due to knee Power Mobility Device "scooter". Face to face evaluation 12/30/2018 Diagnosis: (T84.018S, [...] Comment on above: Power Mobility Devic e "scooter". Face to face evaluation 12/30/2018 Diagnosis: (T84.018S, Z96.659) Failure of total knee replacement, sequela (primary encounter diagnosis) (G35) Multiple sclerosis (HCC) (T84.498D) Mechanical complication of internal orthopedic device, implant or graft, subsequent encounter (M25.561, G89.29) Chronic pain of right knee (M17.11) Osteoarthritis of right knee, unspecified osteoarthritis type (R53.1) Generalized weakness (Z74.09) Requires scooter for mobility Length of need: 99 mos/ lifetime. diazePAM 5 mg oral tablet (20 sources) Benzodiazepine Start: 05-24-2024 End: 12-18-2024 take 1 tablet by mouth twice daily diazePAM (VALIUM) 5 mg tablet Indications: Chronic anxiety Take 1 tablet by mouth two times a day for 30 days. 60 tablet 11/18/2024 12/18/2024 Active Start: 02-26-2024 End: 05-22-2024 take 1 tablet [...] July 02, 2022. Take 1 tablet by candido twice daily for 28 days. Take 1 tablet by candido two times a day for 30 days. diclofenac sodium 0.01 mg/mg topical gel (20 sources) Nonsteroidal Anti-inflammatory Drug Start: End: apply 4 g topically four times daily diclofenac (VOLTAREN) 1 % topical gel Apply 4 g to affected area four times daily. To back 100 g 11 10/08/2023 Active Comment on above: Apply 4 g to affecte d area four times daily. To back diphenhydrAMINE hydrochloride 25 mg oral tablet (1 source) Histamine-1 Receptor Antagonist Start: diphenhydrAMINE (BENADRYL) tablet 25 mg doxycycline hyclate 100 mg oral capsule (20 sources) Tetracycline-class Drug Start: 023 End: take 1 capsule by mouth twice daily [...] candido twice daily. Take 1 capsule by [facility] twice daily for 7 days. 0.4 ml [...] injection 40 mg take 1 tablet by candido twice daily furosemide (LASIX) 20 mg tablet [...] Take 1 tablet by candido twice daily. guaifenesin/dextromethorphan (GUAIFENESIN DM ORAL) (20 [...] Active Start: 10-16-2019 [facility] metoprolol tartrate (LOPRESSOR) 50 MG [...] DERM CQ) 21 MG/24HR 1 patch nystatin [id number] unt/ml topical cream (20 sources) Polyene Antifungal [...] on above: Take 1 capsule by mo [facility] once daily. ondansetron 8 mg oral tablet [...] candido th once daily. polyethylene glycol 3350 71299 mg powder for oral solution (20 sources) Osmotic Laxative Start: 7 End: 0 take 1 dose by mouth once daily [...] Take 10 mg by mouth once daily. pregabalin 150 mg oral capsule (20 sources) Start: End: 5 take 1 capsule by mouth twice daily pregabalin (LYRICA) 150 mg capsule Indications: MS (multiple sclerosis) (HCC) , Daily headache Take 1 capsule by mouth two times a day for 30 days. 60 capsule 11/18/2024 12/18/2024 Active Start: 09-24-2022 End: 05-29-2023 take 1 capsule [...] Comment on above: Take 1 capsule by [facility] twice daily for 30 days. Take 1 capsule by [facility] twice daily for 30 days. Do not start before July 02, 2022. Take 1 capsule by [facility] twice daily for 28 days. Take 1 capsule by [facility] two times a day for 30 days. 2 ml prochlorperazine 5 mg/ml injection (1 source) Phenothiazine Start: 0 prochlorperazine (COMPAZINE) injection 10 mg Promethazine (10 sources) Phenothiazine Start: 0 promethazine (PHENERGAN) tablet 12.5 mg Start: 11-04-2019 promethazine ( PHENERGAN) tablet 12.5 mg Start: 10-03-2019 promethazine ( PHENERGAN) tablet 12.5 mg Start: 06-08-2015 End: 10-18-2019 promethazine (PHENERGAN) inj ection 25 mg Start: 03-26-2015 take 1 tablet by [facility] every six hours as needed for nausea [...] by mouth. Active take 2 tablets by [facility] every twelve hours as needed for pain [...] 0 02/03/2020 Discontinued (Stop Taking at Discharge) 20 ml albumin human, skilled nursing 250 mg/ml injection (2 sources) Human Serum Albumin Start: 10-09-19 End: 10-09-19 albumin human 25 % IV solution 50 [...] (PRECEDEX) 400 mcg in 100 mL infusion 20 ml etomidate 2 mg/ml injection (1 [...] separately. Start: 11-29-2019 take 1 tablet by candido twice daily potassium chloride ER (K-DUR, KLOR-CON) [...] 0.9% NaCl with KCl 40 mEq infusion 100 ml propofol 10 mg/ml injection (5 [...] 2312 Start: 12-12-2019 take 1 capsule by [facility] three times daily valproic acid (DEPAKENE) 250 mg capsule Take 1 capsule by mouth three times daily. 90 capsule 2 12/12/2019 Active Comment on above: Take 1 capsule by [facility] three times daily. vancomycin (VANCOCIN) 1500 mg [...] Problem Classification Problem Date Documented Date Episodic/Chronic Anxiety disorders (20 sources) Chronic anxiety; Translations: [Anxiety disorder, unspecified] Chronic Cancer of brain and nervous system (10 sources) Glioma; Translations: [Malignant neoplasm of brain, unspecified] Onset: 02-08-2015 02-08-2015 Chronic Chronic obstructive pulmonary disease and bronchiectasis (1 source) Chronic obstructive pulmonary disease, unspecified; Translations: [Chronic obstructive pulmonary disease, unspecified] Onset: 04-27-2024 Chronic Delirium, dementia, and amnestic and other cognitive [...] [Essential (primary) hypertension] Onset: 03-26-2015 03-26-2015 Chronic Fever of unknown origin (1 source) Fever, unspecified; Translations: [Fever, unspecified] Onset: 11-17-2024 Episodic Fluid and electrolyte disorders (1 source) Hypokalemia; Translations: [Hypokalemia] Episodic Headache; including migraine (8 sources) Migraine; Translations: [Migraine, unspecified, not intractable, without status migrainosus] Onset: 12-11-2014 12-11-2014 Chronic Headache; including migraine (2 sources) Headache; including [...] right knee] Onset: 01-12-2017 02-13-2016 Chronic Other connective tissue disease (20 sources) [...] 11-27-2017 11-05-2019 Chronic Other nervous system disorders (2 sources) Other chronic pain; Translations: [Other chronic pain] Onset: 03-16-2022 Chronic Other nervous system disorders (1 source) Cognitive communication deficit; Translations: [Cognitive communication deficit] Onset: 09-02-2024 Chronic Other non-traumatic joint disorders (1 source) [...] [Contusion of right knee] Onset: 02-03-2020 02-03-2020 Past or Other Problems Problem Classification Problem Date Documented Da te Episodic/Chronic Administrative/social admission (20 sources) Repeated prescription; Translations: [Encounter for issue of repeat prescription] Onset: 11-28-2017 11-05-2019 Episodic Aspiration pneumonitis; food/vomitus (9 sources) Aspiration pneumonia; Translations: [Pneumonitis due to inhalation of food and vomit] Onset: 10-25-2019 10-25-2019 Episodic Complication of device; implant or graft (20 sources) Infection of total knee joint prosthesis; Translations: [Infection and inflammatory reaction due to internal right knee prosthesis, initial encounter] Onset: 02-24-2018 11-04-2019 Episodic Epilepsy; convulsions (20 sources) Seizure; Translations: [Unspecified convulsions] Onset: 11-05-2019 12-26-2020 Episodic Genitourinary symptoms and ill-defined conditions (20 sources) Dysuria; Translations: [Dysuria] Onset: 12-19-2020 12-26-2020 Episodic Headache; including migraine (20 sources) Headache; Translations: [Chronic nonintractable headache] Onset: 03-26-2015 03-26-2015 Episodic Infective arthritis and osteomyelitis (except that [...] Long-term current use of benzodiazepine; Translations: [Other care home (current) drug therapy] Onset: 11-28-2017 07-10-2018 Episodic Other aftercare (20 sources) Prescribed medication regimen behavior finding; Translations: [retirement (current) use of opiate analgesic] Onset: 11-28-2017 11-05-2019 Episodic Other aftercare (2 sources) Other care home (current) drug therapy; Translations: [Other care home (current) drug therapy] Onset: 06-03-2024 Episodic Other aftercare (1 source) Encounter for [...] sources) SUMMARY Onset: 04-03-2017 Resolved: 04-17-2017 04-17-2017 Urinary tract infections (20 sources) Urinary tract infectious disease; Translations: [Urinary tract infection, site not specified] Onset: 11-05-2019 11-05-2019 Episodic Results Test Name Value Interpretation Reference Range [facility] [id number] 10-20-2024 [id number] [facility] Site of Care Admission Date: 10/17/2024 12:22 PM Patient Name: CHARLIE NGUYEN Location: [address] CARDIAC PCU/[facility] [id number] A Date of : 1955 ------- Placement Information ------- Referral Type:[facility] - Return Referral ID:[id number] [facility] [place] Address 1:[address] Address 2: City:[place] Selection Factors:Returning to Facility State[place] [facility] [id number] MAR & Discharge med list transmitted to [facility] [place] via Careport per TCC request. Electronically signed by [facility] Kris Anderson [facility] [phone] Rounds this am DCP: return to SNF today Notified daughter/Vicente Tasked [facility] to send DC packet and MAR to [facility] [place] n2n report number is [phone] - 300 grossman supervisor electronic testing time is confirmed to 5pm [facility] Nursing Noteon 10-20-2024 Nursing Note Report called to Yoly at [facility]. Pickup scheduled for 5pm. Normal [facility] Nursing Note Pt refusing blood draw this am. Pt became verbally abusive to nurse and phlebotomy. Educated pt on reason why blood was going to be drawn. Pt still refuses. Will continue to monitor this shift. Normal [facility] 30on 10-19-2024 30 Problem: Knowledge Deficit Goal: Patient/family/caregi kendy demonstrates understanding of disease process, treatment plan, medications, and discharge instructions Outcome: Progressing Problem: Potential for Compromised Skin Integrity Goal: Skin Integrity is Maintained or Improved Outcome: Progressing Goal: Nutritional status is improving Outcome: Progressing Problem: Urinary Incontinence Goal: Perineal skin integrity is maintained or improved Outcome: Progressing Normal [facility] 30 Problem: Knowledge Deficit Goal: Patient/family/caregi kendy demonstrates understanding of disease process, treatment plan, medications, and discharge instructions Outcome: Progressing Problem: Potential for Compromised Skin Integrity Goal: Skin Integrity is Maintained or Improved Outcome: Progressing Goal: Nutritional status is improving Outcome: Progressing Problem: Urinary Incontinence Goal: Perineal skin integrity is maintained or improved Outcome: Progressing Normal [facility] BASIC METABOLIC PANELon 05- Anion gap [Moles/Vol] 9 mmol/L Normal 3-13 [facility] Comment on above: Performed By: #### L [id number] ####Project Facilitator: KWESI SANCHEZ ([id number])[facility] (HLAB)[address] [place] [address] Calcium [Mass/Vol] 8.6 mg/dL Low 8.8-10.0 [facility] Comment on above: Performed By: #### L [id number] ####Project Facilitator: KWESI SANCHEZ ([id number])[facility] (SBHLAB)[address] [place] [address] [place] Chloride [Moles/Vol] 101 mmol/L Normal 98-107 [facility] Comment on above: Performed By: #### L [id number] ####Project Facilitator: KWESI SANCHEZ ([id number])[facility] (SBHLAB)[address] [place] [address] [place] CO2 [Moles/Vol] 25 mmol/L Normal 23-31 [facility] Comment on above: Performed By: #### L AB15 ####Project Facilitator: KWESI SANCHEZ ([id number])[facility] Creatinine [Mass/Vol] 0.82 mg/dL Normal 0.57-1.11 [facility] Comment on above: Performed By: #### L AB15 ####Project Facilitator: KWESI SANCHEZ ([id number])[facility] GLOMERULAR FILTRATION RATE ML/MIN/1.73 SQ M.PREDICTED 78.0 mL/min/1.73m*2 Normal >60.0 [facility] Comment on above: Result Comment: Calc ulation based on the Chronic Kidney Disease Epidemiology Collaboration (CKD-EPI) equation refit without adjustment for race Performed By: #### L AB15 ####Project Facilitator: KWESI SANCHEZ ([id number])[facility] [place] [address] Glucose [Mass/Vol] 107 mg/dL Normal 82-115 [facility] Comment on above: Performed By: #### L AB15 ####Project Facilitator: KWESI SANCHEZ ([id number])[facility] ([facility])[address] [place] [address] Potassium [Moles/Vol] 4.0 mmol/L Normal 3.5-5.1 [facility] Comment on above: Result Comment: [facility] potassium values may be up to 0.5 mmol/L lower than serum values. Performed By: #### L AB15 ####Project Facilitator: KWESI SANCHEZ ([id number])[facility] Sodium [Moles/Vol] 135 mmol/L Low 136-145 [facility] Comment on above: Performed By: #### L AB15 ####Project Facilitator: KWESI SANCHEZ ([id number])[facility] (SBHLAB)[address] Urea nitrogen [Mass/Vol] 23 mg/dL Normal 9-23 [facility] Comment on above: Performed By: #### L AB15 ####Project Facilitator: KWESI SANCHEZ ([id number])[facility] (SBHLAB)[address] CBC WITH AUTO DIFFERENTIALon 10-19-2024 Basophils (Bld) [#/Vol] 0.1 10*3/uL Normal 0.0-0.2 [facility] Comment on above: Performed By: #### L [id number] ####Project Facilitator: KWESI SANCHEZ ([id number])[facility] [place] ([facility])[address] Basophils/100 WBC (Bld) 0.5 % Normal 0.0-2.0 [facility] Comment on above: Performed By: #### L [id number] ####Project Facilitator: KWESI SANCHEZ ([id number])[facility] [place] ([facility])[address] Eosinophils (Bld) [#/Vol] 0.0 10*3/uL Normal 0.0-0.5 [facility] Comment on above: Performed By: #### L [id number] ####Project Facilitator: KWESI SANCHEZ ([id number])[facility] [place] ([facility])[address] Eosinophils/100 WBC (Bld) 0.0 % Normal 0.0-6.0 [facility] Comment on above: Performed By: #### L [id number] ####Project Facilitator: KWESI SANCHEZ ([id number])[facility] [place] (SB[facility])[address] Erythrocyte distribution width (RBC) [Ratio] 14.4 % Normal 11.5-15.0 [facility] Comment on above: Performed By: #### L [id number] ####Project Facilitator: KWESI SANCHEZ ([id number])[facility] [place] (SB[facility])[address] Hematocrit (Bld) [Volume fraction] 42.7 % Normal 35.0-47.0 [facility] Comment on above: Performed By: #### L [id number] ####Project Facilitator: KWESI SANCHEZ ([id number])[facility] (SB[facility])[address] Hemoglobin (Bld) [Mass/Vol] 13.9 g/dL Normal 11.7-16.0 [facility] Comment on above: Performed By: #### L [id number] ####Project Facilitator: KWESI SANCHEZ ([id number])[facility] [place] [address] IMMATURE GRANS % 0.9 % Normal 0.0-2.0 [facility] Comment on above: Performed By: #### L [id number] ####Project Facilitator: KWESI SANCHEZ ([id number])[facility] [place] [address] IMMATURE GRANS ABSOLUTE 0.1 10*3/uL High <0.1 [facility] Comment on above: Performed By: #### L [id number] ####Project Facilitator: KWESI SANCHEZ ([id number])[facility] [place] [address] [place] Lymphocytes (Bld) [#/Vol] 1.6 10*3/uL Normal 1.0-4.3 [facility] Comment on above: Performed By: #### L [id number] ####Project Facilitator: KWESI SANCHEZ ([id number])[facility] Lymphocytes/100 WBC (Bld) 15.1 % Normal 15.0-45.0 [facility] Comment on above: Performed By: #### L [id number] ####Project Facilitator: KWESI SANCHEZ ([id number])[facility] (SBHLAB)[address] MCH (RBC) [Entitic mass] 32.2 pg Normal 26.0-34.0 [facility] Comment on above: Performed By: #### L [id number] ####Project Facilitator: KWESI SANCHEZ ([id number])[facility] ([facility])[address] MCHC 32.6 % Normal 30.5-36.0 [facility] Comment on above: Performed By: #### L [id number] ####Project Facilitator: KWESI SANCHEZ ([id number])[facility] ([facility])[address] MCV (RBC) [Entitic vol] 98.8 fL Normal 77.0-99.0 [facility] Comment on above: Performed By: #### L [id number] ####Project Facilitator: KWESI SANCHEZ ([id number])[facility] (SB[facility])[address] Monocytes (Bld) [#/Vol] 1.5 10*3/uL High 0.0-0.9 [facility] Comment on above: Performed By: #### L [id number] ####Project Facilitator: KWESI SANCHEZ ([id number])[facility] [place] ([facility])[address] Monocytes/100 WBC (Bld) 13.8 % High 5.0-13.0 [facility] Comment on above: Performed By: #### L [id number] ####Project Facilitator: KWESI SANCHEZ ([id number])[facility] (SB[facility])[address] NEUTROPHILS ABSOLUTE 7.4 10*3/uL Normal 1.8-7.5 [facility] Comment on above: Performed By: #### L [id number] ####Project Facilitator: KWESI SANCHEZ ([id number])[facility] [place] ([facility])[address] Neutrophils/100 WBC (Bld) 69.7 % Normal 38.0-82.0 [facility] Comment on above: Performed By: #### L [id number] ####Project Facilitator: KWESI SANCHEZ ([id number])[facility] [place] ([facility])[address] NRBC 0.0 /100 WBCs Normal 0.0-2.0 [facility] Comment on above: Performed By: #### L [id number] ####Project Facilitator: KWESI SANCHEZ ([id number])[facility] ([facility])[address] Platelet mean volume (Bld) [Entitic vol] 9.9 fL Normal 9.0-12.7 [facility] Comment on above: Performed By: #### L [id number] ####Project Facilitator: KWESI SANCHEZ ([id number])[facility] ([facility])[address] Platelets (Bld) [#/Vol] 207 10*3/uL Normal 140-440 [facility] Comment on above: Performed By: #### L [id number] ####Project Facilitator: KWESI SANCHEZ ([id number])[facility] ([facility])[address] RBC (Bld) [#/Vol] 4.32 10*6/uL Normal 3.80-5.20 [facility] Comment on above: Performed By: #### L [id number] ####Project Facilitator: KWESI SANCHEZ ([id number])[facility] [facility] ([facility] WBC (Bld) [#/Vol] 10.6 10*3/uL Normal 3.6-10.7 [facility] Comment on above: Performed By: #### L [id number] ####Project Facilitator: KWESI SANCHEZ ([id number])[facility] (SBHLAB)[address] Nursing Noteon 10-19-2024 Nursing Note Wound Care consulted for Pressure Injury Prevention. Pt's Jacinto score= 15 on 10/19 Pt refused assessment of pressure points at this time, stating, My skin is pretty tough. I'm in pain, could we not?" Pt states Heels, Buttocks/coccyx, Back, Elbows, Occiput [...] sitting in chair. Verbalized understanding. Discussed with reweaver. Staff states MASD to gluteal cleft and redness to abdominal folds. Prevention Measures in place, including: Langlois sheet with pillows/wedges, Heels elevated off bed on pillows, Zinc/Moisture Barrier ointment, Waffle chair cushion (obtain for pt once getting out of bed to chair). Skin Care precaution order set in place. Dietitian injection molding technician involved. PT consult in place. D/W nursing staff. Will continue to follow pt. Please secure chat for any questions or concerns. Tanesha Balderas RN [facility] Progress Noteon 10-19-2024 Progress Note PHYSICAL THERAPY [facility] Name/MRN: Charlie Nguyen ([id number]) Date: 10/19/2024 Chart review complete. RN cleared pt for session. Pt declined to participate in therapy this date d/t increased abdominal cramping and discomfort. Educated on potential for improvement in symptoms with mobility to which pt reported, "I'd rather not." Pt reported possible need for having a BM, option of BSC given to which pt continued to report, "No thanks, I'd rather just lay here in bed and not move." Will continue to follow and attempt as appropriate and as schedule permits. Tino Jung, PT [facility] Progress Note Nutrition rescreen complete. Pt assigned a level one for nutrition care. [facility] 30on 10-18-2024 30 Problem: Knowledge Deficit Goal: Patient/family/caregi kendy demonstrates understanding of disease process, treatment plan, medications, and discharge instructions Outcome: Progressing Problem: Potential for Compromised Skin Integrity Goal: Skin Integrity is Maintained or Improved Outcome: Progressing Goal: Nutritional status is improving Outcome: Progressing Problem: Urinary Incontinence Goal: Perineal skin integrity is maintained or improved Outcome: Progressing Normal [facility] [id number] 10-18-2024 [id number] -Pt admitted for altered mental status/UTI. -Chart reviewed -Pt is from [facility], he is LTC and a bedhold. -Will not need auth to return. -Tasked MAT CLEANING MACHINE OPERATOR to send return referral to facility. -Receiving IV ATB -PT ordered and pending at this time -On 4L O2, 2L is her baseline -Left HIPAA compliant VM to daughter for return call to verify discharge plan. -Discharge plan at this time is to return to [facility]. -manager fixed income to follow and assist as needed. [facility] BASIC METABOLIC PANELon 05-2 Anion gap [Moles/Vol] 11 mmol/L Normal 3-13 [facility] Comment on above: Performed By: #### L [id number] ####Project Facilitator: KWESI SANCHEZ ([id number])[facility] (SBHLAB)[address] [place] [address] Calcium [Mass/Vol] 9.2 mg/dL Normal 8.8-10.0 [facility] Comment on above: Performed By: #### L AB15 ####Project Facilitator: KWESI SNACHEZ ([id number])[facility] (SBHLAB)[address] [place] [address] [place] Chloride [Moles/Vol] 99 mmol/L Normal 98-107 [facility] Comment on above: Performed By: #### L AB15 ####Project Facilitator: KWESI SANCHEZ ([id number])[facility] (SBHLAB)[address] [place] [address] [place] CO2 [Moles/Vol] 24 mmol/L Normal 23-31 [facility] Comment on above: Performed By: #### L AB15 ####Project Facilitator: KWESI SANCHEZ ([id number])[facility] (SBHLAB)[address] Creatinine [Mass/Vol] 0.85 mg/dL Normal 0.57-1.11 [facility] Comment on above: Performed By: #### L AB15 ####Project Facilitator: KWESI SANCHEZ ([id number])[facility] [place] [address] [place] GLOMERULAR FILTRATION RATE ML/MIN/1.73 SQ M.PREDICTED 74.7 mL/min/1.73m*2 Normal >60.0 [facility] Comment on above: Result Comment: Calc ulation based on the Chronic Kidney Disease Epidemiology Collaboration (CKD-EPI) equation refit without adjustment for race Performed By: #### L [id number] ####Project Facilitator: KWESI SANCHEZ ([id number])[facility] Glucose [Mass/Vol] 106 mg/dL Normal 82-115 [facility] Comment on above: Performed By: #### L AB15 ####Project Facilitator: KWESI SANCHEZ ([id number])[facility] [place] [address] [place] Potassium [Moles/Vol] 4.1 mmol/L Normal 3.5-5.1 [facility] Comment on above: Result Comment: [facility] potassium values may be up to 0.5 mmol/L lower than serum values. Performed By: #### L AB15 ####Project Facilitator: KWESI SANCHEZ ([id number])[facility] [place] [address] [place] Sodium [Moles/Vol] 134 mmol/L Low 136-145 [facility] Comment on above: Performed By: #### L AB15 ####Project Facilitator: KWESI [id number])[facility] (SBHL[facility])[address] Urea nitrogen [Mass/Vol] 22 mg/dL Normal 9-23 [facility] Comment on above: Performed By: #### L AB15 ####Project Facilitator: KWESI SANHCEZ ([id number])[facility] (SBHLAB)[address] CBC WITH AUTO DIFFERENTIALon 10-18-2024 Erythrocyte distribution width (RBC) [Ratio] 14.4 % Normal 11.5-15.0 [facility] Comment on above: Performed By: #### L [id number], [id number] ####Project Facilitator: KWESI SANCHEZ ([id number])[facility] [place] (SBHLAB)[address] [place] [address] Hematocrit (Bld) [Volume fraction] 47.6 % High 35.0-47.0 [facility] Comment on above: Performed By: #### L [id number], [id number] ####Project Facilitator: KWESI SANCHEZ ([id number])[facility] (SBHLAB)[address] Hemoglobin (Bld) [Mass/Vol] 15.3 g/dL Normal 11.7-16.0 [facility] Comment on above: Performed By: #### L [id number], [id number] ####Project Facilitator: KWESI SANCHEZ ([id number])[facility] (SBHLAB)[address] MCH (RBC) [Entitic mass] 31.9 pg Normal 26.0-34.0 [facility] Comment on above: Performed By: #### L [id number], [id number] ####Project Facilitator: KWESI PIKEAGUSTIN ([id number])[facility] (SBHLAB)[address] MCHC 32.1 % Normal 30.5-36.0 [facility] Comment on above: Performed By: #### L [id number], [id number] ####Project Facilitator: KWESI SANCHEZ ([id number])[facility] [place] (SBHLAB)[address] MCV (RBC) [Entitic vol] 99.4 fL High 77.0-99.0 [facility] Comment on above: Performed By: #### L [id number], [id number] ####Project Facilitator: KWESI SANCHEZ ([id number])[facility] [place] ([facility])[address] Platelet mean volume (Bld) [Entitic vol] 9.8 fL Normal 9.0-12.7 [facility] Comment on above: Performed By: #### L [id number], [id number] ####Project Facilitator: KWESI SANCHEZ ([id number])[facility] [place] (SB[facility])[address] [place] [address] [place] Platelets (Bld) [#/Vol] 202 10*3/uL Normal 140-440 [facility] Comment on above: Performed By: #### L [id number], [id number] ####Project Facilitator: KWESI SANCHEZ ([id number])[facility] [place] (SB[facility]AB)[address] RBC (Bld) [#/Vol] 4.79 10*6/uL Normal 3.80-5.20 [facility] Comment on above: Performed By: #### L [id number], [id number] ####Project Facilitator: KWESI SANCHEZ ([id number])[facility] [place] (SB[facility])[address] [place] [address] [place] WBC (Bld) [#/Vol] 13.9 10*3/uL High 3.6-10.7 [facility] Comment on above: Performed By: #### L [id number], [id number] ####Project Facilitator: KWESI SANCHEZ ([id number])[facility] [place] (SB[facility])[address] [place] [address] [place] MANUAL DIFFERENTIAL (CELLAVI PELON)on 10-18-2024 BAND NEUTROPHILS TOTAL PER COUNTED LEUKOCYTES BY MANUAL COUNT 2 Normal [facility] Comment on above: Performed By: #### L [id number], [id number] ####Project Facilitator: KWESI SANCHEZ ([id number])[facility] [place] (SBHLAB)[address] [place] [address] [place] BANDS (10*3/UL) IN BLOOD-CELLAVISION 0.3 10*3/uL High <=0.0 [facility] Comment on above: Performed By: #### L [id number], [id number] ####Project Facilitator: KWESI SANCHEZ ([id number])[facility] [place] ([facility])[address] [place] [address] [place] BASOPHILS TOTAL PER COUNTED LEUKOCYTES BY MANUAL COUNT Normal [facility] Comment on above: Performed By: #### L [id number], [id number] ####Project Facilitator: KWESI SANCHEZ ([id number])[facility] [place] (SBHLAB)[address] [place] [address] [place] BLASTS TOTAL PER COUNTED LEUKOCYTES BY MANUAL COUNT Normal [facility] Comment on above: Performed By: #### L [id number], [id number] ####Project Facilitator: KWESI SANCHEZ ([id number])[facility] [place] (SBHLAB)[address] [place] [address] [place] LUIS CELLS PRESENCE IN BLOOD BY LIGHT MICROSCOPY Moderate Abnormal (none) [facility] Comment on above: Performed By: #### L [id number], [id number] ####Project Facilitator: KWESI SANCHEZ ([id number])[facility] [place] ([facility])[address] [place] [address] [place] EOSINOPHILS TOTAL PER COUNTED LEUKOCYTES BY MANUAL COUNT Normal [facility] Comment on above: Performed By: #### L [id number], [id number] ####Project Facilitator: KWESI SANCHEZ ([id number])[facility] [place] (SBHLAB)[address] [place] [address] [place] LYMPHOCYTES (10*3/UL) IN BLOOD-CELLAVISION 0.8 10*3/uL Low 1.0-4.3 [facility] Comment on above: Performed By: #### L [id number], [id number] ####Project Facilitator: KWESI SANCHEZ ([id number])[facility] [place] (SBHLAB)[address] [place] [address] [place] LYMPHOCYTES TOTAL PER COUNTED LEUKOCYTES BY MANUAL COUNT 6 Normal [facility] Comment on above: Performed By: #### L [id number], [id number] ####Project Facilitator: KWESI GOODWINCER ([id number])[facility] [place] ([facility])[address] [place] [address] [place] LYMPHOCYTES/100 LEUKOCYTES IN BLOOD-CELLAVISION 6 % Low 15-45 [facility] Comment on above: Performed By: #### L [id number], [id number] ####Project Facilitator: KWESI SANCHEZ ([id number])[facility] [place] (SBHLAB)[address] METAMYELOCYTES TOTAL PER COUNTED LEUKOCYTES BY MANUAL COUNT [facility] Comment on above: Performed By: #### L [id number], [id number] ####Project Facilitator: KWESI SANCHEZ ([id number])[facility] [place] ([facility])[address] [place] [address] [place] MONOCYTES (10*3/UL) IN BLOOD-CELLAVISION 1.3 10*3/uL High 0.0-0.9 [facility] Comment on above: Performed By: #### L [id number], [id number] ####Project Facilitator: KWESI SANCHEZ ([id number])[facility] [place] (SBHLAB)[address] [place] [address] [place] MONOCYTES TOTAL PER COUNTED LEUKOCYTES BY MANUAL COUNT 9 Normal [facility] Comment on above: Performed By: #### L [id number], [id number] ####Project Facilitator: KWESI SANCHEZ ([id number])[facility] [place] (SBHLAB)[address] [place] [address] [place] MONOCYTES/100 LEUKOCYTES IN BLOOD-CHARLES 9 % Normal 5-13 [facility] Comment on above: Performed By: #### L [id number], [id number] ####Project Facilitator: KWESI SANCHEZ ([id number])[facility] [place] (SBHLAB)[address] [place] [address] [place] MYELOCYTES COUNTED BY MANUAL COUNT Normal [facility] Comment on above: Performed By: #### L [id number], [id number] ####Project Facilitator: KWESI SANCHEZ ([id number])[facility] [place] (SBHLAB)[address] [place] [address] [place] NEUTROPHILS BAND FORM/100 LEUKOCYTES IN BLOOD-CELLAVISI 2 % High <=0 [facility] Comment on above: Performed By: #### L [id number], [id number] ####Project Facilitator: KWESI SANCHEZ ([id number])[facility] [place] ([facility])[address] [place] [address] [place] NEUTROPHILS TOTAL PER COUNTED LEUKOCYTES BY MANUAL COUNT 83 Normal [facility] Comment on above: Performed By: #### L [id number], [id number] ####Project Facilitator: KWESI SANCHEZ ([id number])[facility] [place] (SBHLAB)[address] [place] [address] [place] POIKILOCYTOSIS (PRESENCE) IN BLOOD BY LIGHT MICROSCOPY Slight Abnormal (none) [facility] Comment on above: Performed By: #### L [id number], [id number] ####Project Facilitator: KWESI SANCHEZ ([id number])[facility] [place] (SBHLAB)[address] [place] [address] [place] PROMYELOCYTES TOTAL PER COUNTED LEUKOCYTES BY MANUAL COUNT Normal [facility] Comment on above: Performed By: #### L [id number], [id number] ####Project Facilitator: KWESI SANCHEZ ([id number])[facility] [place] ([facility])[address] [place] [address] [place] RBC MORPHOLOGY IN BLOOD abnormal Normal [facility] Comment on above: Performed By: #### L [id number], [id number] ####Project Facilitator: KWESI SANCHEZ ([id number])[facility] (SBHLAB)[address] SEGMENTED NEUTROPHILS (10*3/UL) IN BLOOD-CELLAVISION 11.8 10*3/uL High 1.8-7.5 [facility] Comment on above: Performed By: #### L [id number], [id number] ####Project Facilitator: KWESI SANCHEZ ([id number])[facility] (SBHLAB)[address] SEGMENTED NEUTROPHILS/100 LEUKOCYTES-CE 83 % High 38-82 [facility] Comment on above: Performed By: #### L [id number], [id number] ####Project Facilitator: KWESI SANCHEZ ([id number])[facility] (SBHLAB)[address] UNCLASSIFIED CELLS TOTAL PER COUNTED LEUKOCYTES BY MANUAL COUNT [facility] Comment on above: Performed By: #### L [id number], [id number] ####Project Facilitator: KWESI SANCHEZ ([id number])[facility] (SBHLAB)[address] VARIANT LYMPHOCYTES TOTAL PER COUNTED LEUKOCYTES BY MANUAL COUNT [facility] Comment on above: Performed By: #### L [id number], [id number] ####Project Facilitator: KWESI SANCHEZ ([id number])[facility] (SBHLAB)[address] Progress Noteon 10-18-2024 Progress Note PHYSICAL THERAPY [facility] Name/MRN: Charlie Nguyen ([id number]) Date: 10/18/2024 Chart review completed. PT assessment attempted, patient currently declining to participate in PT and to attempt OOB mobility this date despite multiple options provided. Unable to encourage patient this date. Will continue to follow and re-attempt as appropriate. Nathaly Javier, PT Normal [facility] BASIC METABOLIC PANELon 05-1 Anion gap [Moles/Vol] 10 mmol/L Normal 3-13 [facility] Comment on above: Performed By: #### L AB15 #### Project Facilitator: KWESI SANCHEZ ([id number]) [facility] (SBHLAB) [address] Calcium [Mass/Vol] 8.9 mg/dL Normal 8.8-10.0 [facility] Comment on above: Performed By: #### L AB15 #### Project Facilitator: KWESI SANCHEZ ([id number]) [facility] (SBHLAB) [address] Chloride [Moles/Vol] 100 mmol/L Normal 98-107 [facility] Comment on above: Performed By: #### L AB15 #### Project Facilitator: KWESI SANCHEZ ([id number]) [facility] [address] [place] [address] [place] CO2 [Moles/Vol] 24 mmol/L Normal 23-31 [facility] Comment on above: Performed By: #### L AB15 #### Project Facilitator: KWESI SANCHEZ ([id number]) [facility] (SBHLAB) [address] Creatinine [Mass/Vol] 0.82 mg/dL Normal 0.57-1.11 [facility] Comment on above: Performed By: #### L AB15 #### Project Facilitator: KWESI SANCHEZ ([id number]) [facility] (SBHLAB) [address] [place] [address] [place] GLOMERULAR FILTRATION RATE ML/MIN/1.73 SQ M.PREDICTED 78.0 mL/min/1.73m*2 Normal >60.0 [facility] Comment on above: Result Comment: Calc ulation based on the Chronic Kidney Disease Epidemiology Collaboration (CKD-EPI) equation refit without adjustment for race Performed By: #### L AB15 #### Project Facilitator: KWESI SANCHEZ ([id number]) [facility] (SB[facility]) [address] Glucose [Mass/Vol] 135 mg/dL High 82-115 [facility] Comment on above: Performed By: #### L AB15 #### Project Facilitator: KWESI SANCHEZ ([id number]) [facility] (SBHLAB) [address] Potassium [Moles/Vol] 4.5 mmol/L Normal 3.5-5.1 [facility] Comment on above: Result Comment: [facility] potassium values may be up to 0.5 mmol/L lower than serum values. Performed By: #### L AB15 #### Project Facilitator: KWESI SANCHEZ ([id number]) [facility] (SB[facility]) [address] Sodium [Moles/Vol] 134 mmol/L Low 136-145 [facility] Comment on above: Performed By: #### L AB15 #### Project Facilitator: KWESI SANCHEZ ([id number]) [facility] (SBHLAB) [address] Urea nitrogen [Mass/Vol] 21 mg/dL Normal 9-23 [facility] Comment on above: Performed By: #### L AB15 #### Project Facilitator: KWESI SANCHEZ ([id number]) [facility] (SBHLAB) [address] CBC WITH AUTO DIFFERENTIALon 10-17-2024 Erythrocyte distribution width (RBC) [Ratio] 14.4 % Normal 11.5-15.0 [facility] Comment on above: Performed By: #### L [id number], [id number] ####Project Facilitator: KWESI SANCHEZ ([id number])[facility] (SBHLAB)[address] Hematocrit (Bld) [Volume fraction] 43.4 % Normal 35.0-47.0 [facility] Comment on above: Performed By: #### L [id number], [id number] ####Project Facilitator: KWESI SANCHEZ ([id number])[facility] [place] (SB[facility]AB)[address] Hemoglobin (Bld) [Mass/Vol] 14.3 g/dL Normal 11.7-16.0 [facility] Comment on above: Performed By: #### L [id number], [id number] ####Project Facilitator: KWESI SANCHEZ ([id number])[facility] ([facility])[address] MCH (RBC) [Entitic mass] 32.1 pg Normal 26.0-34.0 [facility] Comment on above: Performed By: #### L [id number], [id number] ####Project Facilitator: KWESI SANCHEZ ([id number])[facility] (SBHLAB)[address] MCHC 32.9 % Normal 30.5-36.0 [facility] Comment on above: Performed By: #### L [id number], [id number] ####Project Facilitator: KWESI SANCHEZ ([id number])[facility] (SBHLAB)[address] MCV (RBC) [Entitic vol] 97.3 fL Normal 77.0-99.0 [facility] Comment on above: Performed By: #### L [id number], [id number] ####Project Facilitator: KWESI SANCHEZ ([id number])[facility] ([facility])[address] Platelet mean volume (Bld) [Entitic vol] 10.3 fL Normal 9.0-12.7 [facility] Comment on above: Performed By: #### L [id number], [id number] ####Project Facilitator: KWESI SANCHEZ ([id number])[facility] (SBHLAB)[address] [place] [address] [place] Platelets (Bld) [#/Vol] 209 10*3/uL Normal 140-440 [facility] Comment on above: Performed By: #### L [id number], [id number] ####Project Facilitator: KWESI SANCHEZ ([id number])[facility] (SBHLAB)[address] RBC (Bld) [#/Vol] 4.46 10*6/uL Normal 3.80-5.20 [facility] Comment on above: Performed By: #### L [id number], [id number] ####Project Facilitator: KWESI SANCHEZ ([id number])[facility] (SBHLAB)[address] [place] [address] WBC (Bld) [#/Vol] 16.1 10*3/uL High 3.6-10.7 [facility] Comment on above: Performed By: #### L [id number], [id number] ####Project Facilitator: KWESI SANCHEZ ([id number])[facility] (SBHLAB)[address] [place] [address] COMPLETE URINALYSIS WITH REF BALAJI TO CULTUREon 10-17-2024 BACTERIA (#/HPF) IN URINE Loaded Abnormal Negative [facility] Comment on above: Performed By: #### L [id number] ####Project Facilitator: KWESI SANCHEZ ([id number])[facility] (SBHLAB)[address] [place] [address]#### [id number] ####Project Facilitator: KRISTEN DAIGLE ([id number])[facility] ([facility])[address] [place] [address] BILIRUBIN, TOTAL PRESENCE IN URINE Negative Normal Negative [facility] Comment on above: Performed By: #### L [id number] ####Project Facilitator: KWESI SANCHEZ ([id number])[facility] (SBHLAB)[address] [place] [address]#### [id number] ####Project Facilitator: KRISTEN DAIGLE ([id number])[facility] ([facility])[address] [place] [address] Clarity (U) Turbid Abnormal Clear [facility] Comment on above: Performed By: #### L [id number] ####Project Facilitator: KWESI SANCHEZ ([id number])[facility] ([facility])[address] [place] [address]#### [id number] ####Project Facilitator: KRISTEN DAIGLE ([id number])[facility] ([facility])[address] [place] [address] Color (U) Yellow Normal Lt. Yellow [facility] Comment on above: Performed By: #### L [id number] ####Project Facilitator: KWESI SANCHEZ ([id number])[facility] ([facility])[address] [place] [address]#### [id number] ####Project Facilitator: KRISTEN DAIGLE ([id number])[facility] [place] [address] GLUCOSE (MG/DL) IN URINE Normal Normal Normal (<70 ) [facility] Comment on above: Performed By: #### L [id number] ####Project Facilitator: KWESI SANCHEZ ([id number])[facility] ([facility])[address] [place] [address]#### [id number] ####Project Facilitator: KRISTEN DAIGLE ([id number])[facility] [place] [address] HEMOGLOBIN PRESENCE IN URINE 1.0 mg/dL Abnormal Negative [facility] Comment on above: Performed By: #### L [id number] ####Project Facilitator: KWESI SANCHEZ ([id number])[facility] ([facility])[address] [place] [address]#### [id number] ####Project Facilitator: KRISTEN DAIGLE ([id number])[facility] ([facility] [place] [address] Ketones Ql (U) Negative Normal Negative [facility] Comment on above: Performed By: #### L [id number] ####Project Facilitator: KWESI SANCHEZ ([id number])[facility] ([facility])[address] [place] [address]#### [id number] ####Project Facilitator: KRISTEN DAIGLE ([id number])[facility] ([facility])[address] [place] [address] LEUKOCYTE ESTERASE PRESENCE IN URINE BY TEST STRIP 500 Simon/uL Abnormal Negative [facility] Comment on above: Performed By: #### L [id number] ####Project Facilitator: KWESI SANCHEZ ([id number])[facility] [place] (SBHLAB)[address] [place] [address]#### [id number] ####Project Facilitator: KRISTEN DAIGLE ([id number])[facility] (SACLAB)[address] [place] [address] MUCUS (#/LPF) IN URINE SEDIMENT Few Normal Negative [facility] Comment on above: Performed By: #### L [id number] ####Project Facilitator: KWESI SANCHEZ ([id number])[facility] [place] (HLAB)[address] [place] [address]#### [id number] ####Project Facilitator: KRISTEN DAIGLE ([id number])[facility] (SACLAB)[address] [place] [address] NITRITE PRESENCE IN URINE Positive Abnormal Negative [facility] Comment on above: Performed By: #### L [id number] ####Project Facilitator: KWESI SANCHEZ ([id number])[facility]ENTER[facility] (SBHLAB)[address] [place] [address] [place]#### [id number] ####Project Facilitator: KRISTEN DAIGLE ([id number])[facility] (SACLAB)[address] [place] [address] pH (U) 6.5 [pH] Normal 5.0-8.0 [facility] Comment on above: Performed By: #### L [id number] ####Project Facilitator: KWESI SANCHEZ ([id number])[facility] (SBHLAB)[address] [place] [address] [place]#### [id number] ####Project Facilitator: KRISTEN DAIGLE ([id number])[facility] (SACLAB)[address] [place] [address] Protein (U) [Mass/Vol] 70 mg/dL Abnormal Negative [facility] Comment on above: Performed By: #### L [id number] ####Project Facilitator: KWESI SANCHEZ ([id number])[facility]ENTERMarcos BLACKBURNMESILLA VALLEY HOSPITALRitika (SBHLAB)[address] [place] [address]#### [id number] ####Project Facilitator: KRISTEN DAIGLE ([id number])[facility] ([facility])[address] [place] [address] RBC (#/HPF) IN URINE SEDIMENT 51-100 Abnormal 0-2 [facility] Comment on above: Performed By: #### L [id number] ####Project Facilitator: KWESI SANCHEZ ([id number])[facility] (SBHLAB)[address] [place] [address]#### [id number] ####Project Facilitator: KRISTEN DAIGLE ([id number])[facility] ([facility] [place] [address] Specific gravity (U) [Rel density] 1.022 Normal 1.005-1.030 [facility] Comment on above: Result Comment: LAVON Gong COMMENTS: This specimen has been reflexed to urine culture. Performed By: #### L [id number] ####Project Facilitator: KWESI SANCHEZ ([id number])[facility]ENTERMarcos BLACKBURNMESILLA VALLEY HOSPITALRitika (SBHLAB)[address]#### [id number] ####Project Facilitator: KRISTEN DAIGLE ([id number])[facility] ([facility])[address] [place] [address] SQUAMOUS EPITHELIAL CELLS (#/HPF) IN URINE SEDIMENT 3-5 Normal 3-5 [facility] Comment on above: Performed By: #### L [id number] ####Project Facilitator: KWESI SANCHEZ ([id number])[facility]ENTERMarcos CORTEZRitika (SBHLAB)[address] [place] [address]#### [id number] ####Project Facilitator: KRISTEN DAIGLE ([id number])[facility] ([facility])[address] [place] [address] UROBILINOGEN (MG/DL) IN URINE 2 mg/dL Abnormal Normal (0-1) [facility] Comment on above: Performed By: #### L [id number] ####Project Facilitator: KWESI SANCHEZ ([id number])[facility]ENTERMarcos CORTEZRitika (SBHLAB)[address] [place] [address]#### [id number] ####Project Facilitator: KRISTEN DAIGLE ([id number])[facility] ([facility])[address] [place] [address] WBC (LEUKOCYTE) (#/HPF) IN URINE SEDIMENT 51-100 Abnormal 0-5 [facility] Comment on above: Performed By: #### L [id number] ####Project Facilitator: KWESI SANCHEZ ([id number])[facility]ENTERMarcos CORTEZRitika (SBAB)[address] [place] [address]#### [id number] ####Project Facilitator: KRISTEN DAIGLE ([id number])[facility] ([facility])[address] [place] [address] ECG 12-LEADon 10-17-2024 ECG 12-LEAD IMPRESSION: Sinus rhythm Low voltage, precordial leads Nonspecific T abnormalities, lateral leads Electronically Signed On 10-17-2024 14:36:48 EDT by Sulaiman Ricks [facility] ED Nursing Noteon 10-17-2024 ED Nursing Note [...] her comments do not make sense. Normal [facility] ED Nursing Note Pt incontinent of urine and stool. Pt was cleaned up and placed in gown. New pure wick applied and pt aware of need for urine sample. Normal [facility] ED Provider Noteon ED Provider Note EMERGENCY [...] Family History[3] SOCIAL HISTORY Social History[4] SCREENINGS Fine Coma Scale Best Eye Response: Spontaneous Best [...] 3-5 Bacteri (more content not included)... Normal [facility] MANUAL DIFFERENTIAL (CELLDAVIDSON BIRD)on 10-17-2024 BAND NEUTROPHILS TOTAL PER COUNTED LEUKOCYTES BY MANUAL COUNT [facility] Comment on above: Performed By: #### L [id number], [id number] ####Project Facilitator: KWESI SANCHEZ ([id number])[facility] ([facility])[address] [place] [address] BASOPHILS TOTAL PER COUNTED LEUKOCYTES BY MANUAL COUNT Normal [facility] Comment on above: Performed By: #### L [id number], [id number] ####Project Facilitator: KWESI SANCHEZ ([id number])[facility] ([facility])[address] [place] [address] BLASTS TOTAL PER COUNTED LEUKOCYTES BY MANUAL COUNT Normal [facility] Comment on above: Performed By: #### L [id number], [id number] ####Project Facilitator: KWESI SANCHEZ ([id number])[facility] (SBHLAB)[address] [place] [address] DACROCYTES PRESENCE IN BLOOD BY LIGHT MICROSCOPY Slight Abnormal (none) [facility] Comment on above: Performed By: #### L [id number], [id number] ####Project Facilitator: KWESI SANCHEZ ([id number])[facility] (SBHLAB)[address] [place] [address] EOSINOPHILS TOTAL PER COUNTED LEUKOCYTES BY MANUAL COUNT Normal [facility] Comment on above: Performed By: #### L [id number], [id number] ####Project Facilitator: KWESI SANCHEZ ([id number])[facility] (SBHLAB)[address] [place] [address] [place] LYMPHOCYTES (10*3/UL) IN BLOOD-CELLAVISION 0.6 10*3/uL Low 1.0-4.3 [facility] Comment on above: Performed By: #### L [id number], [id number] ####Project Facilitator: KWESI ARMSTRONGFERNANDA ([id number])[facility] [place] (SBHLAB)[address] [place] [address] [place] LYMPHOCYTES TOTAL PER COUNTED LEUKOCYTES BY MANUAL COUNT 4 Normal [facility] Comment on above: Performed By: #### L [id number], [id number] ####Project Facilitator: KWESI ARMSTRONGJAZMINAGUSTIN ([id number])[facility] [place] (SBHLAB)[address] [place] [address] [place] LYMPHOCYTES/100 LEUKOCYTES IN BLOOD-CELLAVISION 4 % Low 15-45 [facility] Comment on above: Performed By: #### L [id number], [id number] ####Project Facilitator: KWESI SANCHEZ ([id number])[facility] [place] (SBHLAB)[address] [place] [address] [place] METAMYELOCYTES TOTAL PER COUNTED LEUKOCYTES BY MANUAL COUNT Normal [facility] Comment on above: Performed By: #### L [id number], [id number] ####Project Facilitator: KWESI SANCHEZ ([id number])[facility] [place] (SBHLAB)[address] [place] [address] [place] MONOCYTES (10*3/UL) IN BLOOD-CELLAVISION 1.8 10*3/uL High 0.0-0.9 [facility] Comment on above: Performed By: #### L [id number], [id number] ####Project Facilitator: KWESI SANCHEZ ([id number])[facility] [place] (SBHLAB)[address] [place] [address] [place] MONOCYTES TOTAL PER COUNTED LEUKOCYTES BY MANUAL COUNT 11 Normal [facility] Comment on above: Performed By: #### L [id number], [id number] ####Project Facilitator: KWESIJA SANCHEZ ([id number])[facility] (SBHLAB)[address] [place] [address] [place] MONOCYTES/100 LEUKOCYTES IN BLOOD-CHARLES 11 % Normal 5-13 [facility] Comment on above: Performed By: #### L [id number], [id number] ####Project Facilitator: KWESI DANIEL ([id number])[facility] (SBHLAB)[address] [place] [address] [place] MYELOCYTES COUNTED BY MANUAL COUNT [facility] Comment on above: Performed By: #### L [id number], [id number] ####Project Facilitator: KWESI DANIEL ([id number])[facility] (SBHLAB)[address] [place] [address] [place] NEUTROPHILS TOTAL PER COUNTED LEUKOCYTES BY MANUAL COUNT 88 Normal [facility] Comment on above: Performed By: #### L [id number], [id number] ####Project Facilitator: KWESI ARMSTRONGFERNANDA ([id number])[facility] (SBHLAB)[address] [place] [address] [place] POIKILOCYTOSIS (PRESENCE) IN BLOOD BY LIGHT MICROSCOPY Slight Abnormal (none) [facility] Comment on above: Performed By: #### L [id number], [id number] ####Project Facilitator: KWESI ARMSTRONGFERNANDA ([id number])[facility] (SBHLAB)[address] [place] [address] [place] POLYCHROMASIA IN BLOOD BY LIGHT MICROSCOPY Slight Abnormal (none) [facility] Comment on above: Performed By: #### L [id number], [id number] ####Project Facilitator: KWESI ARMSTRONGFERNANDA ([id number])[facility] [place] (SBHLAB)[address] [place] [address] [place] PROMYELOCYTES TOTAL PER COUNTED LEUKOCYTES BY MANUAL COUNT [facility] Comment on above: Performed By: #### L [id number], [id number] ####Project Facilitator: KWESI SANCHEZ ([id number])[facility] [place] (SBHLAB)[address] [place] [address] [place] RBC MORPHOLOGY IN BLOOD abnormal Normal [facility] Comment on above: Performed By: #### L [id number], [id number] ####Project Facilitator: KWESI SANCHEZ ([id number])[facility] [place] (SB[facility]AB)[address] [place] [address] [place] SEGMENTED NEUTROPHILS (10*3/UL) IN BLOOD-CELLAVISION 13.7 10*3/uL High 1.8-7.5 [facility] Comment on above: Performed By: #### L [id number], [id number] ####Project Facilitator: KWESI SANCHEZ ([id number])[facility] (SBHLAB)[address] [place] [address] [place] SEGMENTED NEUTROPHILS/100 LEUKOCYTES-CE 85 % High 38-82 [facility] Comment on above: Performed By: #### L [id number], [id number] ####Project Facilitator: KWESI SANCHEZ ([id number])[facility] [place] (SBHLAB)[address] [place] [address] [place] STOMATOCYTES IN BLOOD BY LIGHT MICROSCOPY Slight Abnormal (none) [facility] Comment on above: Performed By: #### L [id number], [id number] ####Project Facilitator: KWESI SANCHEZ ([id number])[facility] [place] (SBHLAB)[address] UNCLASSIFIED CELLS TOTAL PER COUNTED LEUKOCYTES BY MANUAL COUNT [facility] Comment on above: Performed By: #### L [id number], [id number] ####Project Facilitator: KWESI SANCHEZ ([id number])[facility] [place] (SBHLAB)[address] [place] [address] [place] VARIANT LYMPHOCYTES TOTAL PER COUNTED LEUKOCYTES BY MANUAL COUNT [facility] Comment on above: Performed By: #### L [id number], [id number] ####Project Facilitator: KWESI SANCHEZ ([id number])[facility] ([facility])[address] SARS-COV-2, FLU A/B, AND RSV COMBOon 10-17-2024 [...] In compliance with this authorization, please visit www.fda.gov/media/178 697/download or www.fda.gov/media/999 922/download to access the applicable information sheets. Normal [facility] Comment on above: Performed By: #### L [id number] #### Project Facilitator: KWESI SANCHEZ ([id number]) [facility] ([facility]) [address] URINE CULTUREon 10-17-2024 Bacteria identified Cx Nom [...] Non-susceptible NO = No Interpretation ] Normal [facility] Comment on above: Performed By: #### L [id number] ####Project Facilitator: KWESI SANCHEZ ([id number])[facility] (SBHLAB)[address]#### [id number] ####Project Facilitator: KRISTEN DAIGLE ([id number])[facility] (SACLAB)[address] [place] [address] Anion gap in Serum or Plasma Ordered By: Royer Reagan on 08-10-2024 Anion gap [Moles/Vol] 13 mmol/L 5-15 [facility] BUN/creatinine ratioOrdered By: Royer Reagan on 08-10-2024 Urea nitrogen/Creatinine [Mass ratio] 24.2 mg/mg High 10-20 [facility] Bilirubin, totalOrdered By: Royer Reagan on 08-10-2024 Bilirubin [Mass/Vol] 0.39 mg/dL 0.00-1.30 [facility] Carbon dioxide, total [Moles /volume] in Central venous bloodOrdered By: Royer Reagan on 08-10-2024 CO2 [Moles/Vol] 22.7 mmol/L 21.0-32.0 [facility] Chloride assayOrdered By: Adam Reagan on 08-10-2024 Chloride [Moles/Vol] 105 mmol/L 98-108 [facility] Erythrocyte distribution wid th (RBC) [Ratio]Ordered By: Royer Reagan on 08-10-2024 Erythrocyte distribution width (RBC) [Entitic vol] 53.2 fL High 35.1-43.9 [facility] Erythrocyte distribution wid th ratioOrdered By: Royer Reagan on 08-10-2024 Erythrocyte distribution width (RBC) [Ratio] 14.4 % 11.6-14.6 [facility] GFR/1.73 sq M.predicted darnell g non-blacks MDRD (S/P/Bld) [Vol rate/Area]Ordered By: Royer Reagan on 08-10-2024 Estimated GFR (MDRD) Non-Af Amer 69 >60 [facility] Comment on above: mL/min/1.73m2 CKD-EP I Creatinine Equation (2020) Hematocrit Auto (Bld) [Volum e fraction]Ordered By: Royer Reagan on 08-10-2024 Hematocrit (Bld) [Volume fraction] 43.0 % 37-47 [facility] Hemoglobin measurementOrdere d By: Royer Reagan on 08-10-2024 Hemoglobin (Bld) [Mass/Vol] 13.9 g/dL 12.0-15.0 [facility] Laboratory - Chemistry and C hemistry - challengeOrdered By: Royer Reagan on 08-10-2024 AST [Catalytic activity/Vol] 23 U/L <32 [facility] MCV (mean corpuscular volume ) determinationOrdered By: Royer Reagan on 08-10-2024 MCV (RBC) [Entitic vol] 99.8 fL High 81-99 [facility] Mean corpuscular hemoglobin (MCH) determinationOrdered By: Royer Reagan on 08-10-2024 MCH (RBC) [Entitic mass] 32.3 pg High 27.0-32.0 [facility] Mean corpuscular hemoglobin concentration (MCHC) determinationOrdered By: Royer Reagan on 08-10-2024 MCHC (RBC) [Mass/Vol] 32.3 g/dL 32-36 [facility] Mean platelet volume determi nationOrdered By: Royer Reagan on 08-10-2024 Platelet mean volume (Bld) [Entitic vol] 9.9 fL 6.2-12.0 [facility] Platelet countOrdered By: Adam Reagan on 08-10-2024 Platelets (Bld) [#/Vol] 189 10*3/uL 150-450 [facility] Potassium (Unsp spec) [Mass/ Vol]Ordered By: Royer Reagan on 08-10-2024 Potassium [Moles/Vol] 4.2 mmol/L 3.3-5.1 [facility] RBC Auto (Bld) [#/Vol]Ordere d By: Royer Reagan on 08-10-2024 RBC (Bld) [#/Vol] 4.31 10*6/uL 4.2-5.4 [facility] Serum creatinine measurement (mass/volume)Ordered By: Royer Reagan on 08-10-2024 Creatinine [Mass/Vol] 0.91 mg/dL 0.70-1.20 [facility] Serum globulin measurementOr dered By: Royer Reagan on 08-10-2024 Globulin (S) [Mass/Vol] 3.3 g/dL 2.2-4.2 [facility] Serum glucose measurement (m ass/volume)Ordered By: Royer Reagan on 08-10-2024 Glucose [Mass/Vol] 118 mg/dL High 70-99 [facility] Serum or plasma alanine leung otransferase (ALT) measurementOrdered By: Royer Reagan on 08-10-2024 ALT [Catalytic activity/Vol] 15 U/L <35 [facility] Serum or plasma albumin tammie urement (mass/volume)Ordered By: Royer Reagan on 08-10-2024 Albumin [Mass/Vol] 3.5 g/dL 3.4-4.8 [facility] Serum or plasma albumin/glob ulin mass ratioOrdered By: Royer Reagan on 08-10-2024 Albumin/Globulin [Mass ratio] 1.1 {ratio} 0.9-2.4 [facility] Serum or plasma alkaline rosey sphatase measurementOrdered By: Royer Reagan on 08-10-2024 ALP [Catalytic activity/Vol] 72 U/L 35-104 [facility] Serum or plasma calcium tammie urement (mass/volume)Ordered By: Royer Reagan on 08-10-2024 Calcium [Mass/Vol] 8.9 mg/dL 7.6-11.0 [facility] Serum or plasma urea nitroge n measurement (mass/volume)Ordered By: Royer Reagan on 08-10-2024 Urea nitrogen [Mass/Vol] 22 mg/dL High 4-19 [facility] Sodium levelOrdered By: Ismael Reagan on 08-10-2024 Sodium [Moles/Vol] 140 mmol/L 133-145 [facility] Total proteinOrdered By: Ori Reagan on 08-10-2024 Protein [Mass/Vol] 6.8 g/dL 5.9-8.4 [facility] White blood cell (WBC) count Ordered By: Royer Reagan on 08-10-2024 WBC (Bld) [#/Vol] 6.2 10*3/uL 4.4-11.0 [facility] CNPNon 07-18-2024 CNPN Telephone (FPWADS) CHARLIE NGUYEN ([id number]) 1955 F CHT Date Time Provider Department 07/18/24 MORENO OATES FPWADS During your visit today, we recorded the following information about you: Fadumo Rahman LPN 07/18/2024 10:26 AM Signed Received 07/18/2024 from [facility]. Placed in provider's inbox for review. [facility] Allergies As of Date: 07/18/2024 [...] Reason for Visit: Received Outside Medical Records [4003] Cmt: [facility] ([facility]) Labs 07/12/2024 Order(s):CMP (EXTERNAL) [[id number]] Order #: [id number] Prescriptions as of 07/18/2024 - diazePAM (VALIUM) [...] daily. - COMPOUNDED PRESCRIPTION [employer] Mob[employer] Device "scooter". Face to face evaluation 12/30/2018 Diagnosis: (T84.018S, [...] of right knee [M17.11] MS (multiple sclerosis) ([facility]) [G35] Essential hypertension [I10] 02/13/2016 Lumbar disc [...] total knee (more content not included)... Normal [facility] Albumin to globulin ratioon 07-12-2024 Albumin/Globulin [Mass ratio] 0.7 {ratio} Low 0.9-2.4 [facility] Bilirubin, totalOrdered By: Ender Oates on 07-12-2024 Bilirubin [Mass/Vol] 0.60 mg/dL 0.20-1.00 [facility] Comment on above: For patients on eltr ombopag therapy, use of [employer] [place] TBIL is not recommended. Blood urea nitrogen (BUN)/cr eatinine ratioOrdered By: Ender Oates on 07-12-2024 Urea nitrogen/Creatinine [Mass ratio] 30.7 mg/mg High 10-20 [facility] CMP (EXTERNAL)on 07-12-2024 Alk Phos Total 80 U/L 45 - 117 U/L [facility] Bili Total 0.6 mg/dL 0.2 - 1 mg/dL [facility] CO2 [Moles/Vol] 27 mmol/L [facility] GFR 78 mL/MIN [facility] GFR AFR AMER 94 mL/MIN [facility] Globulin 4.6 [facility] Interpretation and review of laboratory results Abnormal [facility] Carbon dioxide measurementOr dered By: Ender Oates on 07-12-2024 CO2 [Moles/Vol] 27.0 mmol/L 21.0-32.0 [facility] Chloride measurementon 07-12 Chloride [Moles/Vol] 107 mmol/L 98-107 [facility] Erythrocyte distribution wid th (RBC) [Ratio]Ordered By: Ender Oates on 07-12-2024 Erythrocyte distribution width (RBC) [Entitic vol] 54.0 fL High 35.1-43.9 [facility] Erythrocyte distribution wid th ratioOrdered By: Ender Oates on 07-12-2024 Erythrocyte distribution width (RBC) [Ratio] 14.4 % 11.6-14.6 [facility] Estimated glomerular filtrat ion rate (GFR) AmericanOrdered By: Ender Oates on 07-12-2024 Estimated GFR (MDRD) Amer 94 mL/min >60 [facility] Comment on above: GFR Calc Glomerular filtration rate ( GFR) estimationOrdered By: Ender Oates on 07-12-2024 Estimated GFR (MDRD) Non-Af Amer 78 mL/min >60 [facility] Comment on above: Non- GFR Calc Glucose measurementon 2024 Glucose [Mass/Vol] 97 mg/dL 74-106 [facility] Hematocrit Auto (Bld) [Volum e fraction]Ordered By: Ender Oates on 07-12-2024 Hematocrit (Bld) [Volume fraction] 47.4 % High 37-47 [facility] Hemoglobin measurementOrdere d By: Ender Oates on 07-12-2024 Hemoglobin (Bld) [Mass/Vol] 14.9 g/dL 12.0-15.0 [facility] Laboratory - Chemistry and C hemistry - challengeon 07-12-2024 AST [Catalytic activity/Vol] 23 U/L 15-37 [facility] Comment on above: Slight Hemolysis, Re sult may be falsely increased. MCV (mean corpuscular volume ) determinationOrdered By: Ender Oates on 07-12-2024 MCV (RBC) [Entitic vol] 100.4 fL High 81-99 [facility] Mean corpuscular hemoglobin (MCH) determinationOrdered By: Ender Oates on 07-12-2024 MCH (RBC) [Entitic mass] 31.6 pg 27.0-32.0 [facility] Mean corpuscular hemoglobin concentration (MCHC) determinationOrdered By: Ender Oates on 07-12-2024 MCHC (RBC) [Mass/Vol] 31.4 g/dL Low 32-36 [facility] Mean platelet volume determi nationOrdered By: Ender Oates on 07-12-2024 Platelet mean volume (Bld) [Entitic vol] 10.4 fL 6.2-12.0 [facility] Platelet countOrdered By: Donnie Oates on 07-12-2024 Platelets (Bld) [#/Vol] 180 10*3/uL 150-450 [facility] Potassium measurementon 07-02 Potassium [Moles/Vol] 4.4 mmol/L 3.5-5.1 [facility] Comment on above: Slight Hemolysis, Re sult may be falsely increased. RBC Auto (Bld) [#/Vol]Ordere d By: Ender Oates on 07-12-2024 RBC (Bld) [#/Vol] 4.72 10*6/uL 4.2-5.4 [facility] Serum anion gap measurementO rdered By: Ender Oates on 07-12-2024 Anion gap [Moles/Vol] 4 mmol/L Low 5-15 [facility] Serum globulin measurementOr dered By: Ender Oates on 07-12-2024 Globulin (S) [Mass/Vol] 4.6 g/dL High 2.2-4.2 [facility] Serum or plasma alanine leung otransferase (ALT) measurementon 07-12-2024 ALT [Catalytic activity/Vol] 20 U/L 13-56 [facility] Serum or plasma albumin tammie urement (mass/volume)on 07-12-2024 Albumin [Mass/Vol] 3.2 g/dL 3.2-5.0 [facility] Serum or plasma alkaline rosey sphatase measurementOrdered By: Ender Oates on 07-12-2024 ALP [Catalytic activity/Vol] 80 U/L 45-117 [facility] Serum or plasma calcium tammie urement (mass/volume)on 07-12-2024 Calcium [Mass/Vol] 8.9 mg/dL 8.5-10.1 [facility] Serum or plasma creatinine m easurement (mass/volume)on 07-12-2024 Creatinine [Mass/Vol] 0.78 mg/dL 0.55-1.02 [facility] Comment on above: The validity of the calculated GFR & GFRAA in patients over 70 years has not been determined. Clinical correlation is essential. Serum or plasma urea nitroge n measurement (mass/volume)on 07-12-2024 Urea nitrogen [Mass/Vol] 24 mg/dL High 7-18 [facility] Sodium levelon 07-12-2024 Sodium [Moles/Vol] 138 mmol/L 136-145 [facility] Total proteinon 07-12-2024 Protein [Mass/Vol] 7.8 g/dL 6.4-8.2 [facility] White blood cell (WBC) count Ordered By: Ender Oatse on 07-12-2024 WBC (Bld) [#/Vol] 6.2 10*3/uL 4.4-11.0 [facility] Albumin to globulin ratioOrd ered By: Royer Reagan on 07-04-2024 Albumin/Globulin [Mass ratio] 0.7 {ratio} Low 0.9-2.4 [facility] Bilirubin, totalOrdered By: Royer Reagan on 07-04-2024 Bilirubin [Mass/Vol] 0.40 mg/dL 0.20-1.00 [facility] Comment on above: For patients on eltr ombopag therapy, use of [facility] [place] TBIL is not recommended. Blood urea nitrogen (BUN)/cr eatinine ratioOrdered By: Royer Reagan on 07-04-2024 Urea nitrogen/Creatinine [Mass ratio] 22.4 mg/mg High 10-20 [facility] Carbon dioxide measurementOr dered By: Royer Reagan on 07-04-2024 CO2 [Moles/Vol] 27.0 mmol/L 21.0-32.0 [facility] Chloride measurementOrdered By: Royer Reagan on 07-04-2024 Chloride [Moles/Vol] 102 mmol/L 98-107 [facility] Erythrocyte distribution wid th (RBC) [Ratio]Ordered By: Royer Reagan on 07-04-2024 Erythrocyte distribution width (RBC) [Entitic vol] 55.4 fL High 35.1-43.9 [facility] Erythrocyte distribution wid th ratioOrdered By: Royer Reagan on 07-04-2024 Erythrocyte distribution width (RBC) [Ratio] 14.6 % 11.6-14.6 [facility] Estimated glomerular filtrat ion rate (GFR) AmericanOrdered By: Royer Reagan on 07-04-2024 Estimated GFR (MDRD) Amer 76 mL/min >60 [facility] Comment on above: GFR Calc Glomerular filtration rate ( GFR) estimationOrdered By: Royer Reagan on 07-04-2024 Estimated GFR (MDRD) Non-Af Amer 63 mL/min >60 [facility] Comment on above: Non- GFR Calc Glucose measurementOrdered B y: Royer Reagan on 07-04-2024 Glucose [Mass/Vol] 143 mg/dL High 74-106 [facility] Comment on above: Fasting Glucose resu lt greater than or equal to 126 mg/dL suggests DIABETES MELLITUS per A.D.A. criteria. Hematocrit Auto (Bld) [Volum e fraction]Ordered By: Royer Reagan on 07-04-2024 Hematocrit (Bld) [Volume fraction] 47.0 % 37-47 [facility] Hemoglobin measurementOrdere d By: Royer Reagan on 07-04-2024 Hemoglobin (Bld) [Mass/Vol] 14.4 g/dL 12.0-15.0 [facility] Laboratory - Chemistry and C hemistry - challengeOrdered By: Royer Reagan on 07-04-2024 AST [Catalytic activity/Vol] 20 U/L 15-37 [facility] MCV (mean corpuscular volume ) determinationOrdered By: Royer Reagan on 07-04-2024 MCV (RBC) [Entitic vol] 102.8 fL High 81-99 [facility] Mean corpuscular hemoglobin (MCH) determinationOrdered By: Royer Reagan on 07-04-2024 MCH (RBC) [Entitic mass] 31.5 pg 27.0-32.0 [facility] Mean corpuscular hemoglobin concentration (MCHC) determinationOrdered By: Royer Reagan on 07-04-2024 MCHC (RBC) [Mass/Vol] 30.6 g/dL Low 32-36 [facility] Mean platelet volume determi nationOrdered By: Royer Reagan on 07-04-2024 Platelet mean volume (Bld) [Entitic vol] 10.2 fL 6.2-12.0 [facility] Platelet countOrdered By: Adam Reagan on 07-04-2024 Platelets (Bld) [#/Vol] 221 10*3/uL 150-450 [facility] Potassium measurementOrdered By: Royer Reagan on 07-04-2024 Potassium [Moles/Vol] 4.2 mmol/L 3.5-5.1 [facility] RBC Auto (Bld) [#/Vol]Ordere d By: Royer Reagan on 07-04-2024 RBC (Bld) [#/Vol] 4.57 10*6/uL 4.2-5.4 [facility] Serum anion gap measurementO rdered By: Royer Reagan on 07-04-2024 Anion gap [Moles/Vol] 7 mmol/L 5-15 [facility] Serum globulin measurementOr dered By: Royer Reagan on 07-04-2024 Globulin (S) [Mass/Vol] 4.5 g/dL High 2.2-4.2 [facility] Serum or plasma alanine leung otransferase (ALT) measurementOrdered By: Royer Reagan on 07-04-2024 ALT [Catalytic activity/Vol] 23 U/L 13-56 [facility] Serum or plasma albumin tammie urement (mass/volume)Ordered By: Royer Reagan on 07-04-2024 Albumin [Mass/Vol] 3.3 g/dL 3.2-5.0 [facility] Serum or plasma alkaline rosey sphatase measurementOrdered By: Royer Reagan on 07-04-2024 ALP [Catalytic activity/Vol] 89 U/L 45-117 [facility] Serum or plasma calcium tammie urement (mass/volume)Ordered By: Royer Reagan on 07-04-2024 Calcium [Mass/Vol] 8.6 mg/dL 8.5-10.1 [facility] Serum or plasma creatinine m easurement (mass/volume)Ordered By: Royer Reagan on 07-04-2024 Creatinine [Mass/Vol] 0.94 mg/dL 0.55-1.02 [facility] Comment on above: The validity of the calculated GFR & GFRAA in patients over 70 years has not been determined. Clinical correlation is essential. Serum or plasma urea nitroge n measurement (mass/volume)Ordered By: Royer Reagan on 07-04-2024 Urea nitrogen [Mass/Vol] 21 mg/dL High 7-18 [facility] Sodium levelOrdered By: Ismael Reagan on 07-04-2024 Sodium [Moles/Vol] 136 mmol/L 136-145 [facility] Total proteinOrdered By: Ori Reagan on 07-04-2024 Protein [Mass/Vol] 7.8 g/dL 6.4-8.2 [facility] White blood cell (WBC) count Ordered By: Royer Reagan on 07-04-2024 WBC (Bld) [#/Vol] 6.8 10*3/uL 4.4-11.0 [facility] Albumin to globulin ratioOrd ered By: Ender Oates on 05-11-2024 Albumin/Globulin [Mass ratio] 0.8 {ratio} Low 0.9-2.4 [facility] Bilirubin, totalOrdered By: Ender Oates on 05-11-2024 Bilirubin [Mass/Vol] 0.40 mg/dL 0.20-1.00 [facility] Comment on above: For patients on eltr ombopag therapy, use of Dimension [place] TBIL is not recommended. Blood urea nitrogen (BUN)/cr eatinine ratioOrdered By: Ender Oates on 05-11-2024 Urea nitrogen/Creatinine [Mass ratio] 32.1 mg/mg High 10-20 [facility] Carbon dioxide measurementOr dered By: Ender Oates on 05-11-2024 CO2 [Moles/Vol] 29.0 mmol/L 21.0-32.0 [facility] Chloride measurementOrdered By: Ender Oates on 05-11-2024 Chloride [Moles/Vol] 108 mmol/L High 98-107 [facility] Erythrocyte distribution wid th (RBC) [Ratio]Ordered By: Ender Oates on 05-11-2024 Erythrocyte distribution width (RBC) [Entitic vol] 59.7 fL High 35.1-43.9 [facility] Erythrocyte distribution wid th ratioOrdered By: Ender Oates on 05-11-2024 Erythrocyte distribution width (RBC) [Ratio] 15.8 % High 11.6-14.6 [facility] Estimated glomerular filtrat ion rate (GFR) AmericanOrdered By: Ender Oates on 05-11-2024 Estimated GFR (MDRD) Amer 95 mL/min >60 [facility] Comment on above: GFR Calc Glomerular filtration rate ( GFR) estimationOrdered By: Ender Oates on 05-11-2024 Estimated GFR (MDRD) Non-Af Amer 78 mL/min >60 [facility] Comment on above: Non- GFR Calc Glucose measurementOrdered B y: Ender Oates on 05-11-2024 Glucose [Mass/Vol] 109 mg/dL High 74-106 [facility] Comment on above: Fasting Glucose resu lt from 100 to 125 mg/dL suggests IMPAIRED HOMEOSTASIS per A.D.A. criteria. Hematocrit Auto (Bld) [Volum e fraction]Ordered By: Ender Oates on 05-11-2024 Hematocrit (Bld) [Volume fraction] 43.3 % 37-47 [facility] Hemoglobin measurementOrdere d By: Ender Oates on 05-11-2024 Hemoglobin (Bld) [Mass/Vol] 13.4 g/dL 12.0-15.0 [facility] Laboratory - Chemistry and C hemistry - challengeOrdered By: Ender Oates on 05-11-2024 AST [Catalytic activity/Vol] 18 U/L 15-37 [facility] Comment on above: Moderate Hemolysis, Result may be falsely increased. MCV (mean corpuscular volume ) determinationOrdered By: Ender Oates on 05-11-2024 MCV (RBC) [Entitic vol] 102.6 fL High 81-99 [facility] Mean corpuscular hemoglobin (MCH) determinationOrdered By: Ender Oates on 05-11-2024 MCH (RBC) [Entitic mass] 31.8 pg 27.0-32.0 [facility] Mean corpuscular hemoglobin concentration (MCHC) determinationOrdered By: Ender Oates on 05-11-2024 MCHC (RBC) [Mass/Vol] 30.9 g/dL Low 32-36 [facility] Mean platelet volume determi nationOrdered By: Ender Oates on 05-11-2024 Platelet mean volume (Bld) [Entitic vol] 10.0 fL 6.2-12.0 [facility] Platelet countOrdered By: Donnie Oates on 05-11-2024 Platelets (Bld) [#/Vol] 174 10*3/uL 150-450 [facility] Potassium measurementOrdered By: Ender Oates on 05-11-2024 Potassium [Moles/Vol] 4.6 mmol/L 3.5-5.1 [facility] Comment on above: Moderate Hemolysis, Result may be falsely increased. RBC Auto (Bld) [#/Vol]Ordere d By: Ender Oates on 05-11-2024 RBC (Bld) [#/Vol] 4.22 10*6/uL 4.2-5.4 [facility] Serum anion gap measurementO rdered By: Ender Oates on 05-11-2024 Anion gap [Moles/Vol] 2 mmol/L Low 5-15 [facility] Serum globulin measurementOr dered By: Ender Oates on 05-11-2024 Globulin (S) [Mass/Vol] 3.7 g/dL 2.2-4.2 [facility] Serum or plasma alanine leung otransferase (ALT) measurementOrdered By: Ender Oates on 05-11-2024 ALT [Catalytic activity/Vol] 20 U/L 13-56 [facility] Serum or plasma albumin tammie urement (mass/volume)Ordered By: Ender Oates on 05-11-2024 Albumin [Mass/Vol] 2.8 g/dL Low 3.2-5.0 [facility] Serum or plasma alkaline rosey sphatase measurementOrdered By: Ender Oates on 05-11-2024 ALP [Catalytic activity/Vol] 84 U/L 45-117 [facility] Serum or plasma calcium tammie urement (mass/volume)Ordered By: Ender Oates on 05-11-2024 Calcium [Mass/Vol] 8.9 mg/dL 8.5-10.1 [facility] Serum or plasma creatinine m easurement (mass/volume)Ordered By: Ender Oates on 05-11-2024 Creatinine [Mass/Vol] 0.78 mg/dL 0.55-1.02 [facility] Comment on above: The validity of the calculated GFR & GFRAA in patients over 70 years has not been determined. Clinical correlation is essential. Serum or plasma urea nitroge n measurement (mass/volume)Ordered By: Ender Oates on 05-11-2024 Urea nitrogen [Mass/Vol] 25 mg/dL High 7-18 [facility] Sodium levelOrdered By: Jimbo Oates on 05-11-2024 Sodium [Moles/Vol] 139 mmol/L 136-145 [facility] Total proteinOrdered By: Ronaldo Oates on 05-11-2024 Protein [Mass/Vol] 6.5 g/dL 6.4-8.2 [facility] White blood cell (WBC) count Ordered By: Ender Oates on 05-11-2024 WBC (Bld) [#/Vol] 6.0 10*3/uL 4.4-11.0 [facility] CNPNon 04-12-2024 CNPN Telephone (FPWADS) CHARLIE NGUYEN ([id number]) 1955 F T Date Time Provider Department 04/12/24 MORENO OATES During your visit today, we recorded the following information about you: Fadumo Rahman LPN 04/12/2024 10:33 AM Signed Received from [facility]. Placed in provider's inbox for review. [facility] Allergies As of Date: 04/12/2024 [...] Reason for Visit: Received Outside Medical Records [[id number]] Cmt: [facility] Labs 04/11/2024 Order(s):CBC [[id number]] Order #: [id number] [facility] (EXTERNAL) [[id number]] Order #: [id number] Prescriptions as of 04/12/2024 - oxyCODONE-acetaminoph en [...] daily. - COMPOUNDED PRESCRIPTION Power Mobility Device "scooter". Face to face evaluation 12/30/2018 Diagnosis: (T84.018S, [...] encounter *04/20/201704/02 (more content not included)... Normal [facility] CBCon 04-11-2024 Erythrocyte distribution width (RBC) [Ratio] 15.9 % Abnormal 11.7 - 15.0 % [facility] Hematocrit (Bld) [Volume fraction] 47.1 % Abnormal 33 - 42 % [facility] Hemoglobin (Bld) [Mass/Vol] 15.2 g/dL 14 - 16.5 g/dL [facility] MCH (RBC) [Entitic mass] 32.1 pG 27 - 34 pG [facility] MCHC 32.3 % 32 - 36 % [facility] MCV (RBC) [Entitic vol] 99.4 fL 80 - 100 fL [facility] Platelet mean volume (Bld) [Entitic vol] 10.3 fL 7.4 - 10.4 fL [facility] Platelets (Bld) [#/Vol] 191 10*3/uL [facility] RBC (Bld) [#/Vol] 4.74 10*6/uL [facility] RDW-SD 58.9 [facility] WBC (Bld) [#/Vol] 7.2 10*3/uL [facility] CMP (EXTERNAL)on 04-11-2024 Albumin [Mass/Vol] 3.1 g/dL Abnormal [facility] Alk Phos Total 81 U/L 45 - 117 U/L [facility] ALT [Catalytic activity/Vol] 19 U/L 12 - 78 U/L [facility] AST [Catalytic activity/Vol] 22 U/L 8 - 37 U/L [facility] Bili Total 0.50 mg/dL 0.2 - 1 mg/dL [facility] Calcium [Mass/Vol] 8.4 mg/dL Abnormal 8.5 - 10. 1 mg/dL [facility] Chloride [Moles/Vol] 109 mmol/L Abnormal [facility] CO2 [Moles/Vol] 24 mmol/L [facility] Creatinine [Mass/Vol] 0.83 mg/dL [facility] GFR 73 mL/MIN [facility] GFR AFR AMER 88 mL/MIN [facility] Glucose [Mass/Vol] 112 mg/dL Abnormal [facility] Potassium [Moles/Vol] 4.2 mmol/L 3.5 - 5.1 mmol/L [facility] Protein [Mass/Vol] 7.4 g/dL [facility] Sodium [Moles/Vol] 139 mmol/L 136 - 145 mmol/L [facility] Urea nitrogen [Mass/Vol] 22 mg/dL Abnormal [facility] No Panel Informationon 04-11 Interpretation and review of laboratory results Abnormal [facility] CNPNon 03-17-2024 CNPN Telephone (MILY) CHARLIE NGUYEN ([id number]) 1955 F CHT Date Time Provider Department 03/17/24 MORENO OATES During your visit today, we recorded the following information about you: Roderick aGviria LPN 03/17/2024 8:43 AM Signed Received orders from [facility]. Placed in provider's inbox for review. [facility] to [facility] Allergies As of Date: 03/17/2024 Noted [...] - Fully Assessed Reason for Visit: Orders [[id number]] Cmt: [place] [facility] Prescriptions as of 03/17/2024 [...] daily. - COMPOUNDED PRESCRIPTION Power Mobility Device "scooter". Face to face evaluation 12/30/2018 Diagnosis: (T84.018S, [...] of right knee [M17.11] MS (multiple sclerosis) ([facility]) [G35] Essential hypertension [I10] 02/13/2016 Lumbar disc [...] S/P revision (more content not included)... Normal [facility] CNPNon 03-10-2024 BENJAMINN Telephone (SUSIWADS) CHARLIE NGUYEN ([id number]) 1955 F CHT Date Time Provider Department 03/10/24 MORENO OATES During your visit today, we recorded the following information about you: Roderick Gaviria LPN 03/10/2024 5:23 PM Signed Received outside lab results from [facility]. Placed in provider's inbox for review. Route to [facility] scanning Allergies As of Date: 03/10/2024 Noted [...] for Visit: Outside Labs Results [[id number]] Cmt: [facility] Prescriptions as of 03/10/2024 - oxyCODONE-acetaminoph [...] daily. - COMPOUNDED PRESCRIPTION Power Mobility Device "scooter". Face to face evaluation 12/30/2018 Diagnosis: (T84.018S, [...] 07/08/2017 S/P (more content not included)... Normal [facility] Keshia 12-29-2023 CARSON Telephone (FPWADS) PATRICKCHARLIE WEEKS ([id number]) 1955 F CHT Date Time Provider Department 12/29/23 MORENO OATES During your visit today, we recorded the following information about you: Hoda Early 12/29/2023 5:02 PM Signed Charlie is calling Moreno Oates MD today [facility], Nurse from [facility] called to request this medication, not on current list: Disp Refills Start End diazePAM (VALIUM) 5 mg tablet 60 tablet 0 11/27/2023 12/27/2023 Sig: Take 1 tablet by mouth two times a day for 30 days. Sent to pharmacy as: diazePAM (VALIUM) 5 mg tablet Class: Normal Route: ORAL Order: [id number] E-Prescribing Status: Receipt confirmed by pharmacy (11/27/2023 2:31 PM EDT) Please send to [facility]. Patient has been identified by name and birthdate. Duration of symptoms: N/A Was an appointment scheduled: No Closing statement: Results or non-symptom based questions: Thank you for calling [facility], your call will be returned within the next business day. Hoda Fisher Pss Allergies As of Date: 12/29/2023 Noted [...] daily. - COMPOUNDED PRESCRIPTION Power Mobility Device "scooter". Face to face evaluation 12/30/2018 Diagnosis: (T84.018S, [...] MS (multip (more content not included)... [facility] CHARLIE NGUYEN ([id number]) 1955 F T Date Time Provider Department 11/27/23 MORENO OATES During your visit today, we recorded the following information about you: Moreno Oates MD 11/27/2023 2:31 PM Signed Pt at [facility]. The following approved medication requests have [...] [T84.53XD] Chronic anxiety [F41.9] MS (multiple sclerosis) ([facility]) [G35] Daily headache [R51.9] Order(s):oxyCODONE-ac etaminophen (PERCOCET) [...] daily. - COMPOUNDED PRESCRIPTION Power Mobility Device "scooter". Face to face evaluation 12/30/2018 Diagnosis: (T84.018S, [...] - polye (more content not included)... Normal [facility] 11-10-[address] [facility] Telephone (FMWADS) CHARLIE NGUYEN ([id number]) 1955 F T Date Time Provider Department 11/10/23 MORENO OATES LAUREN During your visit today, we recorded the [...] Reason for Visit: Received Outside Medical Records [[id number]] Cmt: [facility] Labs 11/09/2023 Order(s):CMP (EXTERNAL) [[id number]] Order #: [id number] CBC [[id number]] Order #: [id number] Prescriptions as of 11/10/2023 - pregabalin (LYRICA) [...] daily. - COMPOUNDED PRESCRIPTION Power Mobility Device "scooter". Face to face evaluation 12/30/2018 Diagnosis: (T84.018S, [...] of right knee [M17.11] MS (multiple sclerosis) ([facility]) [G35] Essential hypertension [I10] 02/13/2016 Lumbar disc [...] S/P iván (more content not included)... Normal [facility] CBCon 11-09-2023 Erythrocyte distribution width (RBC) [Ratio] 14.4 % 11.7 - 15.0 % [facility] Hematocrit (Bld) [Volume fraction] 49.8 % Abnormal 35 - 47 % [facility] Hemoglobin (Bld) [Mass/Vol] 15.4 g/dL [facility] MCH (RBC) [Entitic mass] 32.3 pG 27 - 34 pG [facility] MCHC (RBC) [Mass/Vol] 30.9 g/dL Abnormal 33 - 37 g/dL [facility] MCV (RBC) [Entitic vol] 104.4 fL Abnormal 80 - 100 fL [facility] Platelet mean volume (Bld) [Entitic vol] 10.4 fL 7.4 - 10.4 fL [facility] Platelets (Bld) [#/Vol] 222 10*3/uL [facility] RBC (Bld) [#/Vol] 4.77 10*6/uL [facility] RDW-SD 55.9 [facility] WBC (Bld) [#/Vol] 6.9 10*3/uL [facility] CMP (EXTERNAL)Ordered By: Angeline Rahman on 11-09-2023 Albumin [Mass/Vol] 3.3 g/dL [facility] Alk Phos Total 102 U/L 45 - 117 U/L [facility] ALT [Catalytic activity/Vol] 19 U/L 12 - 78 U/L [facility] AST [Catalytic activity/Vol] 24 U/L 8 - 37 U/L [facility] Bili Total 0.50 mg/dL 0.2 - 1 mg/dL [facility] Calcium [Mass/Vol] 9 mg/dL 8.5 - 10. 1 mg/dL [facility] Chloride [Moles/Vol] 106 mmol/L [facility] CO2 [Moles/Vol] 27 mmol/L [facility] Creatinine [Mass/Vol] 0.87 mg/dL [facility] GFR 69 mL/MIN [facility] GFR AFR AMER 83 mL/MIN [facility] Glucose [Mass/Vol] 119 mg/dL Abnormal [facility] Potassium [Moles/Vol] 4.4 mmol/L 3.5 - 5.1 mmol/L [facility] Protein [Mass/Vol] 7.8 g/dL [facility] Urea nitrogen [Mass/Vol] 19 mg/dL Abnormal [facility] No Panel InformationOrdered By: Fadumo Rahman on 11-09-2023 Interpretation and review of laboratory results Abnormal [facility] CNPNon 10-12-2023 CNPN Telephone (MILY) CHARLIE NGUYEN ([id number]) 1955 F [facility] Date Time Provider Department 10/12/23 MORENO OATES During your visit today, we recorded the following information about you: Roderick Gaviria LPN 10/12/2023 4:53 PM Signed Received lab results from [facility]. Placed in provider's inbox for review. Route to [facility] scanning Allergies As of Date: 10/12/2023 Noted [...] Assessed Reason for Visit: Outside Lab Results [[id number]] Cmt: [facility] 10/12/23 Prescriptions as of 10/12/2023 - [...] daily. - COMPOUNDED PRESCRIPTION Power Mobility Device "scooter". Face to face evaluation 12/30/2018 Diagnosis: (T84.018S, [...] S/P re (more content not included)... Normal [facility] CNPNon 09-11-2023 CNPN Telephone (FPWADS) CHARLIE NGUYEN ([id number]) 1955 F [facility] Date Time Provider Department 09/11/23 MORENO OATES During your visit today, we [...] MORENO OATES Pharmacy Information Pharmacy Address [employer] [employer] [address] [place] [address] Moreno Oates MD Allergies As of Date: [...] daily. - COMPOUNDED PRESCRIPTION Power Mobility Device "scooter". Face to face evaluation 12/30/2018 Diagnosis: (T84.018S, [...] Gastroesophageal refl (more content not included)... Normal [facility] CNPNon 08-11-2023 CNPN Telephone (SUSIWADS) CHARLIE NGUYEN ([id number]) 1955 F CHT Date Time Provider Department 08/11/23 MORENO OATES During your visit today, we recorded the following information about you: Roderick Gaviria LPN 08/11/2023 8:34 AM Signed Received lab results from [facility]/ [facility]. Placed in provider's inbox for review. Route to [facility] scanning Allergies As of Date: 08/11/2023 Noted [...] for Visit: Outside Labs Results [[id number]] Cmt: [facility] Prescriptions as of 08/11/2023 - oxyCODONE-acetaminoph [...] daily. - COMPOUNDED PRESCRIPTION Power Mobility Device "scooter". Face to face evaluation 12/30/2018 Diagnosis: (T84.018S, [...] 06/25/2017 (more content not included)... Normal [facility] percentageOrdered B y: Ender Oates on 08-10-2023 Bilirubin [Mass/Vol] 0.40 mg/dL 0.20-1.00 [facility] Comment on above: For patients on eltr ombopag therapy, use of Dimension [place] TBIL is not recommended. Chloride [Moles/Vol] 104 mmol/L 98-107 [facility] Cholesterol [Mass/Vol] 174 mg/dL <200 [facility] Comment on above: <200 mg/dL Desirable 200-240 mg/dL Borderline >240 mg/dL High Risk Glucose [Mass/Vol] 102 mg/dL 74-106 [facility] Comment on above: Fasting Glucose resu lt from 100 to 125 mg/dL suggests IMPAIRED HOMEOSTASIS per A.D.A. criteria. Hemoglobin (Bld) [Mass/Vol] 14.9 g/dL 12.0-15.0 [facility] Potassium [Moles/Vol] 4.2 mmol/L 3.5-5.1 [facility] Protein [Mass/Vol] 7.5 g/dL 6.4-8.2 [facility] Sodium [Moles/Vol] 139 mmol/L 136-145 [facility] Triglyceride [Mass/Vol] 265 mg/dL <199 [facility] Comment on above: The drugs N-Acetylcy steine and Metamizole may falsely depress this assay.Serum Triglycerides Reference Interval Normal <150 mg/dL Borderline high 150 - 199 mg/dL High 200 - 499 mg/dL Very High > or = 500 mg/dL WBC (Bld) [#/Vol] 7.7 10*3/uL 4.4-11.0 [facility] Determination of erythrocyte mean corpuscular volume (MCV)Ordered By: Ender Oates on 08-10-2023 MCV (RBC) [Entitic vol] 100.2 fL 81-99 [facility] Erythrocyte distribution wid th ratioOrdered By: Ender Oates on 08-10-2023 Erythrocyte distribution width (RBC) [Ratio] 14.6 % 11.6-14.6 [facility] Erythrocyte distribution wid th standard deviationOrdered By: Ender Oates on 08-10-2023 Erythrocyte distribution width (RBC) [Entitic vol] 54.9 fL 35.1-43.9 [facility] Hematocrit Auto (Bld) [Volum e fraction]Ordered By: Ender Oates on 08-10-2023 Hematocrit (Bld) [Volume fraction] 46.5 % 37-47 [facility] Laboratory - Chemistry and C hemistry - challengeOrdered By: Ender Oates on 08-10-2023 Albumin/Globulin [Mass ratio] 0.7 {ratio} 0.9-2.4 [facility] ALP [Catalytic activity/Vol] 93 U/L 45-117 [facility] ALT [Catalytic activity/Vol] 18 U/L 13-56 [facility] Cholesterol in HDL [Mass/Vol] 59 mg/dL >40 [facility] Comment on above: The drugs N-Acetylcy steine and Metamizole may falsely depress this assay. Reference Range HDL <40 mg/dL Low HDL Cholesterol HDL >or= 60 mg/dL High HDL Cholesterol Cholesterol in LDL [Mass/Vol] 62 mg/dL 0-130 [facility] [facility] CO2 [Moles/Vol] 28.0 mmol/L 21.0-32.0 [facility] Globulin (S) [Mass/Vol] 4.3 g/dL 2.2-4.2 [facility] Urea nitrogen/Creatinine [Mass ratio] 26.5 mg/mg 10-20 [facility] Laboratory - Hematology and Cell countsOrdered By: Ender Oates on 08-10-2023 MCH (RBC) [Entitic mass] 32.1 pg 27.0-32.0 [facility] MCHC (RBC) [Mass/Vol] 32.0 g/dL 32-36 [facility] Platelet mean volume (Bld) [Entitic vol] 10.2 fL 6.2-12.0 [facility] Platelets (Bld) [#/Vol] 237 10*3/uL 150-450 [facility] No Panel InformationOrdered By: Ender Oates on 08-10-2023 Estimated GFR (MDRD) Amer 62 mL/min >60 [facility] Comment on above: GFR Calc Estimated GFR (MDRD) Non-Af Amer 51 mL/min >60 [facility] Comment on above: Non- GFR Calc VLDL Cholesterol 53 mg/dL 5-40 [facility] RBC Auto (Bld) [#/Vol]Ordere d By: Ender Oates on 08-10-2023 RBC (Bld) [#/Vol] 4.64 10*6/uL 4.2-5.4 [facility] Serum or plasma calcium tammie urement (mass/volume)Ordered By: Ender Oates on 08-10-2023 Calcium [Mass/Vol] 9.6 mg/dL 8.5-10.1 [facility] Serum or plasma creatinine m easurement (mass/volume)Ordered By: Ender Oates on 08-10-2023 Creatinine [Mass/Vol] 1.13 mg/dL 0.55-1.02 [facility] Comment on above: The validity of the calculated GFR & GFRAA in patients over 70 years has not been determined. Clinical correlation is essential. Serum or plasma urea nitroge n measurement (mass/volume)Ordered By: Ender Oates on 08-10-2023 Urea nitrogen [Mass/Vol] 30 mg/dL 7-18 [facility] Thin prep Papanicolaou smear with manual screeningOrdered By: Ender Oates on 08-10-2023 Thin prep Papanicolaou smear with manual screening 3.2 g/dL 3.2-5.0 [facility] Thin prep Papanicolaou smear with manual screening 15 U/L 15-37 [facility] Thin prep Papanicolaou smear with manual screening 7 5-15 [facility] Basophil percentageOrdered B y: Ender Oates on 07-13-2023 Bilirubin [Mass/Vol] 0.70 mg/dL 0.20-1.00 [facility] Comment on above: For patients on eltr ombopag therapy, use of [employer]ension [place] TBIL is not recommended. Chloride [Moles/Vol] 108 mmol/L 98-107 [facility] Glucose [Mass/Vol] 91 mg/dL 74-106 [facility] Hemoglobin (Bld) [Mass/Vol] 14.8 g/dL 12.0-15.0 [facility] Potassium [Moles/Vol] 4.7 mmol/L 3.5-5.1 [facility] Protein [Mass/Vol] 7.6 g/dL 6.4-8.2 [facility] Sodium [Moles/Vol] 141 mmol/L 136-145 [facility] WBC (Bld) [#/Vol] 5.6 10*3/uL 4.4-11.0 [facility] Determination of erythrocyte mean corpuscular volume (MCV)Ordered By: Ender Oates on 07-13-2023 MCV (RBC) [Entitic vol] 100.9 fL 81-99 [facility] Erythrocyte distribution wid th ratioOrdered By: Ender Oates on 07-13-2023 Erythrocyte distribution width (RBC) [Ratio] 15.4 % 11.6-14.6 [facility] Erythrocyte distribution wid th standard deviationOrdered By: Ender Oates on 07-13-2023 Erythrocyte distribution width (RBC) [Entitic vol] 57.7 fL 35.1-43.9 [facility] Hematocrit Auto (Bld) [Volum e fraction]Ordered By: Ender Oates on 07-13-2023 Hematocrit (Bld) [Volume fraction] 47.1 % 37-47 [facility] Laboratory - Chemistry and C hemistry - challengeOrdered By: Ender Oates on 07-13-2023 Albumin/Globulin [Mass ratio] 0.8 {ratio} 0.9-2.4 [facility] ALP [Catalytic activity/Vol] 84 U/L 45-117 [facility] ALT [Catalytic activity/Vol] 21 U/L 13-56 [facility] CO2 [Moles/Vol] 27.0 mmol/L 21.0-32.0 [facility] Globulin (S) [Mass/Vol] 4.3 g/dL 2.2-4.2 [facility] Urea nitrogen/Creatinine [Mass ratio] 29.3 mg/mg 10-20 [facility] Laboratory - Hematology and Cell countsOrdered By: Ender Oates on 07-13-2023 MCH (RBC) [Entitic mass] 31.7 pg 27.0-32.0 [facility] MCHC (RBC) [Mass/Vol] 31.4 g/dL 32-36 [facility] Platelet mean volume (Bld) [Entitic vol] 10.6 fL 6.2-12.0 [facility] Platelets (Bld) [#/Vol] 200 10*3/uL 150-450 [facility] No Panel InformationOrdered By: Ender Oates on 07-13-2023 Estimated GFR (MDRD) Amer 94 mL/min >60 [facility] Comment on above: GFR Calc Estimated GFR (MDRD) Non-Af Amer 78 mL/min >60 [facility] Comment on above: Non- GFR Calc RBC Auto (Bld) [#/Vol]Ordere d By: Ender Oates on 07-13-2023 RBC (Bld) [#/Vol] 4.67 10*6/uL 4.2-5.4 [facility] Serum or plasma calcium tammie urement (mass/volume)Ordered By: Ender Oates on 07-13-2023 Calcium [Mass/Vol] 9.2 mg/dL 8.5-10.1 [facility] Serum or plasma creatinine m easurement (mass/volume)Ordered By: Ender Oates on 07-13-2023 Creatinine [Mass/Vol] 0.78 mg/dL 0.55-1.02 [facility] Comment on above: The validity of the calculated GFR & GFRAA in patients over 70 years has not been determined. Clinical correlation is essential. Serum or plasma urea nitroge n measurement (mass/volume)Ordered By: Ender Oates on 07-13-2023 Urea nitrogen [Mass/Vol] 23 mg/dL 7-18 [facility] Thin prep Papanicolaou smear with manual screeningOrdered By: Ender Oates on 07-13-2023 Thin prep Papanicolaou smear with manual screening 3.3 g/dL 3.2-5.0 [facility] Thin prep Papanicolaou smear with manual screening 18 U/L 15-37 [facility] Thin prep Papanicolaou smear with manual screening 6 5-15 [facility] Basophil percentageOrdered B y: Ender Oates on 06-08-2023 Bilirubin [Mass/Vol] 0.40 mg/dL 0.20-1.00 [facility] Comment on above: For patients on eltr ombopag therapy, use of [employer]ension [place] TBIL is not recommended. Chloride [Moles/Vol] 105 mmol/L 98-107 [facility] Glucose [Mass/Vol] 90 mg/dL 74-106 [facility] Potassium [Moles/Vol] 4.8 mmol/L 3.5-5.1 [facility] Protein [Mass/Vol] 7.3 g/dL 6.4-8.2 [facility] Sodium [Moles/Vol] 138 mmol/L 136-145 [facility] WBC (Bld) [#/Vol] 6.9 10*3/uL 4.4-11.0 [facility] Blood erythrocytes count (nu mber/volume)Ordered By: Ender Oates on 06-08-2023 RBC (Bld) [#/Vol] 4.60 10*6/uL 4.2-5.4 [facility] Blood hemoglobin measurement (mass/volume)Ordered By: Ender Oates on 06-08-2023 Hemoglobin (Bld) [Mass/Vol] 14.4 g/dL 12.0-15.0 [facility] Blood platelet mean volumeOr dered By: Ender Oates on 06-08-2023 Platelet mean volume (Bld) [Entitic vol] 10.9 fL 6.2-12.0 [facility] Determination of erythrocyte mean corpuscular volume (MCV)Ordered By: Ender Oates on 06-08-2023 MCV (RBC) [Entitic vol] 103.0 fL 81-99 [facility] Hematocrit Auto (Bld) [Volum e fraction]Ordered By: Ender Oates on 06-08-2023 Hematocrit (Bld) [Volume fraction] 47.4 % 37-47 [facility] Laboratory - Chemistry and C hemistry - challengeOrdered By: Ender Oates on 06-08-2023 ALP [Catalytic activity/Vol] 90 U/L 45-117 [facility] ALT [Catalytic activity/Vol] 17 U/L 13-56 [facility] CO2 [Moles/Vol] 30.0 mmol/L 21.0-32.0 [facility] Globulin (S) [Mass/Vol] 4.2 g/dL 2.2-4.2 [facility] Urea nitrogen/Creatinine [Mass ratio] 30.5 mg/mg 10-20 [facility] Laboratory - Hematology and Cell countsOrdered By: Ender aOtes on 06-08-2023 Erythrocyte distribution width (RBC) [Entitic vol] 58.5 fL 35.1-43.9 [facility] Erythrocyte distribution width (RBC) [Ratio] 15.4 % 11.6-14.6 [facility] MCH (RBC) [Entitic mass] 31.3 pg 27.0-32.0 [facility] MCHC Auto (RBC) [Mass/Vol]Or dered By: Ender Oates on 06-08-2023 MCHC (RBC) [Mass/Vol] 30.4 g/dL 32-36 [facility] No Panel InformationOrdered By: Ender Oates on 06-08-2023 Estimated GFR (MDRD) Amer 67 mL/min >60 [facility] Comment on above: GFR Calc Estimated GFR (MDRD) Non-Af Amer 56 mL/min >60 [facility] Comment on above: Non- GFR Calc Platelets bldOrdered By: Ronaldo Oates on 06-08-2023 Platelets (Bld) [#/Vol] 216 10*3/uL 150-450 [facility] Serum or plasma albumin tammie urement (mass/volume)Ordered By: Ender Oates on 06-08-2023 Albumin [Mass/Vol] 3.1 g/dL 3.2-5.0 [facility] Serum or plasma albumin/glob ulin mass ratioOrdered By: Ender Oates on 06-08-2023 Albumin/Globulin [Mass ratio] 0.7 {ratio} 0.9-2.4 [facility] Serum or plasma calcium tammie urement (mass/volume)Ordered By: Ender Oates on 06-08-2023 Calcium [Mass/Vol] 9.1 mg/dL 8.5-10.1 [facility] Serum or plasma creatinine m easurement (mass/volume)Ordered By: Ender Oates on 06-08-2023 Creatinine [Mass/Vol] 1.05 mg/dL 0.55-1.02 [facility] Comment on above: The validity of the calculated GFR & GFRAA in patients over 70 years has not been determined. Clinical correlation is essential. Serum or plasma urea nitroge n measurement (mass/volume)Ordered By: Ender Oates on 06-08-2023 Urea nitrogen [Mass/Vol] 32 mg/dL 7-18 [facility] Thin prep Papanicolaou smear with manual screeningOrdered By: Ender Oates on 06-08-2023 Thin prep Papanicolaou smear with manual screening 16 U/L 15-37 [facility] Thin prep Papanicolaou smear with manual screening 3 5-15 [facility] Automated blood hematocrit ( percentage)Ordered By: Ender Oates on 05-11-2023 Hematocrit (Bld) [Volume fraction] 41.8 % 37-47 [facility] Basophil percentageOrdered B y: Ender Oates on 05-11-2023 Bilirubin [Mass/Vol] 0.30 mg/dL 0.20-1.00 [facility] Comment on above: For patients on eltr ombopag therapy, use of Dimension [place] TBIL is not recommended. Chloride [Moles/Vol] 106 mmol/L 98-107 [facility] Glucose [Mass/Vol] 102 mg/dL 74-106 [facility] Comment on above: Fasting Glucose resu lt from 100 to 125 mg/dL suggests IMPAIRED HOMEOSTASIS per A.D.A. criteria. Potassium [Moles/Vol] 3.7 mmol/L 3.5-5.1 [facility] Protein [Mass/Vol] 6.4 g/dL 6.4-8.2 [facility] Sodium [Moles/Vol] 142 mmol/L 136-145 [facility] WBC (Bld) [#/Vol] 7.2 10*3/uL 4.4-11.0 [facility] Blood erythrocytes count (nu mber/volume)Ordered By: Ender Oates on 05-11-2023 RBC (Bld) [#/Vol] 4.15 10*6/uL 4.2-5.4 [facility] Blood hemoglobin measurement (mass/volume)Ordered By: Ender Oates on 05-11-2023 Hemoglobin (Bld) [Mass/Vol] 12.8 g/dL 12.0-15.0 [facility] Blood platelet mean volumeOr dered By: Ender Oates on 05-11-2023 Platelet mean volume (Bld) [Entitic vol] 10.8 fL 6.2-12.0 [facility] CBCon 05-11-2023 Erythrocyte distribution width (RBC) [Ratio] 14.7 % 11.7 - 15.0 % [facility] MCHC (RBC) [Mass/Vol] 31.5 g/dL 31.5 - 35.7 g/dL [facility] Platelet mean volume (Bld) [Entitic vol] 10.8 % 7.3 - 11.1 % [facility] Platelets (Bld) [#/Vol] 217 10*3/uL 140 - 440 K/uL [facility] RDW-SD 57.2 [facility] CMP (EXTERNAL)on 05-11-2023 Alk Phos Total 85 U/L 45 - 117 U/L [facility] Anion gap [Moles/Vol] 5 mmol/L [facility] AST [Catalytic activity/Vol] 19 U/L 8 - 37 U/L [facility] Bili Total 0.30 mg/dL 0.2 - 1 mg/dL [facility] CO2 [Moles/Vol] 31 mmol/L 21 - 32 MEQ/L [facility] GFR AFR AMER 83 mL/MIN [facility] GFR/1.73 sq M.predicted among non-blacks MDRD (S/P/Bld) [Vol rate/Area] 69 mL/min/{1.73_m2} [facility] Determination of erythrocyte mean corpuscular volume (MCV)Ordered By: Ender Oates on 05-11-2023 MCV (RBC) [Entitic vol] 100.7 fL 81-99 [facility] Laboratory - Chemistry and C hemistry - challengeOrdered By: Ender Oates on 05-11-2023 ALP [Catalytic activity/Vol] 85 U/L 45-117 [facility] ALT [Catalytic activity/Vol] 19 U/L 13-56 [facility] CO2 [Moles/Vol] 31.0 mmol/L 21.0-32.0 [facility] Globulin (S) [Mass/Vol] 3.7 g/dL 2.2-4.2 [facility] Urea nitrogen/Creatinine [Mass ratio] 30.9 mg/mg 10-20 [facility] Laboratory - Hematology and Cell countsOrdered By: Ender Oates on 05-11-2023 Erythrocyte distribution width (RBC) [Entitic vol] 57.2 fL 35.1-43.9 [facility] Erythrocyte distribution width (RBC) [Ratio] 15.3 % 11.6-14.6 [facility] MCH (RBC) [Entitic mass] 30.8 pG 27.0-32.0 [facility] MCHC Auto (RBC) [Mass/Vol]Or dered By: Ender Oates on 05-11-2023 MCHC (RBC) [Mass/Vol] 30.6 g/dL 32-36 [facility] No Panel InformationOrdered By: Ender Oates on 05-11-2023 Estimated GFR (MDRD) Amer 83 mL/min >60 [facility] Comment on above: GFR Calc Estimated GFR (MDRD) Non-Af Amer 69 mL/min >60 [facility] Comment on above: Non- GFR Calc Platelets bldOrdered By: Ronaldo Oates on 05-11-2023 Platelets (Bld) [#/Vol] 196 10*3/uL 150-450 [facility] Serum or plasma albumin tammie urement (mass/volume)Ordered By: Ender Oates on 05-11-2023 Albumin [Mass/Vol] 2.7 g/dL 3.2-5.0 [facility] Serum or plasma albumin/glob ulin mass ratioOrdered By: Ender Oates on 05-11-2023 Albumin/Globulin [Mass ratio] 0.7 {ratio} 0.9-2.4 [facility] Serum or plasma calcium tammie urement (mass/volume)Ordered By: Ender Oates on 05-11-2023 Calcium [Mass/Vol] 8.9 mg/dL 8.5-10.1 [facility] Serum or plasma creatinine m easurement (mass/volume)Ordered By: Ender Oates on 05-11-2023 Creatinine [Mass/Vol] 0.88 mg/dL 0.55-1.02 [facility] Comment on above: The validity of the calculated GFR & GFRAA in patients over 70 years has not been determined. Clinical correlation is essential. Serum or plasma urea nitroge n measurement (mass/volume)Ordered By: Ender Oates on 05-11-2023 Urea nitrogen [Mass/Vol] 27 mg/dL 7-18 [facility] Thin prep Papanicolaou smear with manual screeningOrdered By: Ender Oates on 05-11-2023 Thin prep Papanicolaou smear with manual screening 19 U/L 15-37 [facility] Thin prep Papanicolaou smear with manual screening 5 5-15 [facility] BMP - EXTERNALon 04-13-2023 Alk Phos 78 U/L 50 - 136 U/L [facility] Anion gap [Moles/Vol] 5 mmol/L [facility] AST [Catalytic activity/Vol] 25 U/L 39 U/L [facility] Bilirubin, Total. 0.40 [facility] GFR AFR AMER 83 mL/MIN [facility] GFR/1.73 sq M.predicted among non-blacks MDRD (S/P/Bld) [Vol rate/Area] 69 mL/min/{1.73_m2} [facility] Globulin 4.2 [facility] HCO3 (Bld) [Moles/Vol] 26 mmol/L Cl [facility] Basophil percentageOrdered B y: Ender Oates on 04-13-2023 Bilirubin [Mass/Vol] 0.40 mg/dL 0.20-1.00 [facility] Comment on above: For patients on eltr ombopag therapy, use of Dimension [place] TBIL is not recommended. Chloride [Moles/Vol] 108 mmol/L 98-107 [facility] Glucose [Mass/Vol] 98 mg/dL 74-106 [facility] Potassium [Moles/Vol] 4.5 mmol/L 3.5-5.1 [facility] Comment on above: Slight Hemolysis, Re sult may be falsely increased. Protein [Mass/Vol] 7.3 g/dL 6.4-8.2 [facility] Sodium [Moles/Vol] 139 mmol/L 136-145 [facility] WBC (Bld) [#/Vol] 6.2 10*3/uL 4.4-11.0 [facility] Blood erythrocytes count (nu mber/volume)Ordered By: Ender Oates on 04-13-2023 RBC (Bld) [#/Vol] 4.24 10*6/uL 4.2-5.4 [facility] Blood hemoglobin measurement (mass/volume)Ordered By: Ender Oates on 04-13-2023 Hemoglobin (Bld) [Mass/Vol] 13.6 g/dL 12.0-15.0 [facility] Blood platelet mean volumeOr dered By: Ender Oates on 04-13-2023 Platelet mean volume (Bld) [Entitic vol] 10.8 fL 6.2-12.0 [facility] Determination of erythrocyte mean corpuscular volume (MCV)Ordered By: Ender Oatse on 04-13-2023 MCV (RBC) [Entitic vol] 101.9 fL 81-99 [facility] Hematocrit Auto (Bld) [Volum e fraction]Ordered By: Ender Oates on 04-13-2023 Hematocrit (Bld) [Volume fraction] 43.2 % 37-47 [facility] Laboratory - Chemistry and C hemistry - challengeOrdered By: Ender Oates on 04-13-2023 ALP [Catalytic activity/Vol] 78 U/L 45-117 [facility] ALT [Catalytic activity/Vol] 20 U/L 13-56 [facility] CO2 [Moles/Vol] 26.0 mmol/L 21.0-32.0 [facility] Globulin (S) [Mass/Vol] 4.2 g/dL 2.2-4.2 [facility] Urea nitrogen/Creatinine [Mass ratio] 26.3 mg/mg 10-20 [facility] Laboratory - Hematology and Cell countsOrdered By: Ender Oates on 04-13-2023 Erythrocyte distribution width (RBC) [Entitic vol] 55.5 fL 35.1-43.9 [facility] Erythrocyte distribution width (RBC) [Ratio] 14.7 % 11.6-14.6 [facility] MCH (RBC) [Entitic mass] 32.1 pg 27.0-32.0 [facility] MCHC Auto (RBC) [Mass/Vol]Or dered By: Ender Oates on 04-13-2023 MCHC (RBC) [Mass/Vol] 31.5 g/dL 32-36 [facility] No Panel InformationOrdered By: Ender Oates on 04-13-2023 Estimated GFR (MDRD) Amer 83 mL/min >60 [facility] Comment on above: GFR Calc Estimated GFR (MDRD) Non-Af Amer 69 mL/min >60 [facility] Comment on above: Non- GFR Calc Platelets bldOrdered By: Ronaldo concepciondelta Oates on 04-13-2023 Platelets (Bld) [#/Vol] 217 10*3/uL 150-450 [facility] Serum or plasma albumin tammie urement (mass/volume)Ordered By: Ender Oates on 04-13-2023 Albumin [Mass/Vol] 3.1 g/dL 3.2-5.0 [facility] Serum or plasma albumin/glob ulin mass ratioOrdered By: Ender Oates on 04-13-2023 Albumin/Globulin [Mass ratio] 0.7 {ratio} 0.9-2.4 [facility] Serum or plasma calcium tammie urement (mass/volume)Ordered By: Ender Oates on 04-13-2023 Calcium [Mass/Vol] 8.7 mg/dL 8.5-10.1 [facility] Serum or plasma creatinine m easurement (mass/volume)Ordered By: Ender Oates on 04-13-2023 Creatinine [Mass/Vol] 0.88 mg/dL 0.55-1.02 [facility] Comment on above: The validity of the calculated GFR & GFRAA in patients over 70 years has not been determined. Clinical correlation is essential. Serum or plasma urea nitroge n measurement (mass/volume)Ordered By: Ender Oates on 04-13-2023 Urea nitrogen [Mass/Vol] 23 mg/dL 7-18 [facility] Thin prep Papanicolaou smear with manual screeningOrdered By: Ender Oates on 04-13-2023 Thin prep Papanicolaou smear with manual screening 25 U/L 15- [facility] Comment on above: Slight Hemolysis, Re sult may be falsely increased. Thin prep Papanicolaou smear with manual screening 5 5-15 [facility] CBC panel Auto (Bld)on 04-06 Erythrocyte distribution width (RBC) [Ratio] 13.9 % 11.7 - 15.0 % [facility] Hematocrit (Bld) [Volume fraction] 43.2 % 35 - 47 % [facility] Hemoglobin (Bld) [Mass/Vol] 13.6 g/dL [facility] MCH (RBC) [Entitic mass] 32.1 pG 27 - 34 pG [facility] MCHC (RBC) [Mass/Vol] 30.6 g/dL Abnormal 31.5 - 35.7 g/dL [facility] Platelet mean volume (Bld) [Entitic vol] 10.8 % Abnormal 7.3 - 11.1 % [facility] Platelets (Bld) [#/Vol] 21.7 10*3/uL Abnormal 150 - 400 k/uL [facility] RBC (Bld) [#/Vol] 4.26 10*6/uL [facility] RDW-SD 54.2 [facility] WBC (Bld) [#/Vol] 6.2 10*3/uL [facility] Basophil percentageOrdered B y: Ender Oates on 03-09-2023 Bilirubin [Mass/Vol] 0.60 mg/dL 0.20-1.00 [facility] Comment on above: For patients on eltr ombopag therapy, use of Dimension [place] TBIL is not recommended. Chloride [Moles/Vol] 106 mmol/L 98-107 [facility] Glucose [Mass/Vol] 105 mg/dL 74-106 [facility] Comment on above: Fasting Glucose resu lt from 100 to 125 mg/dL suggests IMPAIRED HOMEOSTASIS per A.D.A. criteria. Potassium [Moles/Vol] 5.0 mmol/L 3.5-5.1 [facility] Protein [Mass/Vol] 7.1 g/dL 6.4-8.2 [facility] Sodium [Moles/Vol] 139 mmol/L 136-145 [facility] WBC (Bld) [#/Vol] 6.2 10*3/uL 4.4-11.0 [facility] Blood erythrocytes count (nu mber/volume)Ordered By: Ender Oates on 03-09-2023 RBC (Bld) [#/Vol] 4.31 10*6/uL 4.2-5.4 [facility] Blood hemoglobin measurement (mass/volume)Ordered By: Ender Oates on 03-09-2023 Hemoglobin (Bld) [Mass/Vol] 13.7 g/dL 12.0-15.0 [facility] Blood platelet mean volumeOr dered By: Ender Oates on 03-09-2023 Platelet mean volume (Bld) [Entitic vol] 11.4 fL 6.2-12.0 [facility] Determination of erythrocyte mean corpuscular volume (MCV)Ordered By: Ender Oates on 03-09-2023 MCV (RBC) [Entitic vol] 103.7 fL 81-99 [facility] Hematocrit Auto (Bld) [Volum e fraction]Ordered By: Ender Oates on 03-09-2023 Hematocrit (Bld) [Volume fraction] 44.7 % 37-47 [facility] Laboratory - Chemistry and C hemistry - challengeOrdered By: Ender Oates on 03-09-2023 ALP [Catalytic activity/Vol] 94 U/L 45-117 [facility] ALT [Catalytic activity/Vol] 16 U/L 13-56 [facility] CO2 [Moles/Vol] 28.0 mmol/L 21.0-32.0 [facility] Globulin (S) [Mass/Vol] 4.0 g/dL 2.2-4.2 [facility] Urea nitrogen/Creatinine [Mass ratio] 31.3 mg/mg 10-20 [facility] Laboratory - Hematology and Cell countsOrdered By: Ender Oates on 03-09-2023 Erythrocyte distribution width (RBC) [Entitic vol] 54.2 fL 35.1-43.9 [facility] Erythrocyte distribution width (RBC) [Ratio] 13.9 % 11.6-14.6 [facility] MCH (RBC) [Entitic mass] 31.8 pg 27.0-32.0 [facility] MCHC Auto (RBC) [Mass/Vol]Or dered By: Ender Oates on 03-09-2023 MCHC (RBC) [Mass/Vol] 30.6 g/dL 32-36 [facility] No Panel InformationOrdered By: Ender Oates on 03-09-2023 Estimated GFR (MDRD) Amer 75 mL/min >60 [facility] Comment on above: GFR Calc Estimated GFR (MDRD) Non-Af Amer 62 mL/min >60 [facility] Comment on above: Non- GFR Calc Platelets bldOrdered By: Ronaldo Oates on 03-09-2023 Platelets (Bld) [#/Vol] 216 10*3/uL 150-450 [facility] Serum or plasma albumin tammie urement (mass/volume)Ordered By: Ender Oates on 03-09-2023 Albumin [Mass/Vol] 3.1 g/dL 3.2-5.0 [facility] Serum or plasma albumin/glob ulin mass ratioOrdered By: Ender Oates on 03-09-2023 Albumin/Globulin [Mass ratio] 0.8 {ratio} 0.9-2.4 [facility] Serum or plasma calcium tammie urement (mass/volume)Ordered By: Ender Oates on 03-09-2023 Calcium [Mass/Vol] 8.7 mg/dL 8.5-10.1 [facility] Serum or plasma creatinine m easurement (mass/volume)Ordered By: Ender Oates on 03-09-2023 Creatinine [Mass/Vol] 0.96 mg/dL 0.55-1.02 [facility] Comment on above: The validity of the calculated GFR & GFRAA in patients over 70 years has not been determined. Clinical correlation is essential. Serum or plasma urea nitroge n measurement (mass/volume)Ordered By: Ender Oates on 03-09-2023 Urea nitrogen [Mass/Vol] 30 mg/dL 7-18 [facility] Thin prep Papanicolaou smear with manual screeningOrdered By: Ender Oates on 03-09-2023 Thin prep Papanicolaou smear with manual screening 14 U/L 15-37 [facility] Thin prep Papanicolaou smear with manual screening 5 5-15 [facility] Basophil percentageOrdered B y: Ender Oates on 03-07-2023 Basophil percentage 0-5 SEEN /hpf 0-5 [facility] Bilirubin Test strip Ql (U)O rdered By: Ender Oates on 03-07-2023 Bilirubin Ql (U) Negative Negative [facility] Culture, urineOrdered By: Donnie Oates on 03-07-2023 Bacteria identified Cx Nom (U) Proteus mirabilis [facility] Ketones Test strip Ql (U)Ord ered By: Ender Oates on 03-07-2023 Ketones Ql (U) Negative Negative [facility] Mucus LM Ql (Urine sed)Order ed By: Ender Oates on 03-07-2023 Mucus Ql (Urine sed) 0 SEEN /hpf [facility] Nitrite Test strip Ql (U)Ord ered By: Ender Oates on 03-07-2023 Nitrite Ql (U) Negative Negative [facility] Protein Test strip Ql (U)Ord ered By: Ender Oates on 03-07-2023 Protein Ql (U) Negative Negative [facility] Squamous epithelial cells de tection in urine sediment by light microscopyOrdered By: Ender Oates on 03-07-2023 Epithelial cells.squamous LM Ql (Urine sed) 0-5 SEEN /hpf 5-10 [facility] Urine blood detectionOrdered By: Ender Oates on 03-07-2023 RBC Ql (U) 10 /ul Negative [facility] RBC Ql (U) 0 SEEN /hpf 0-5 [facility] Urine clarityOrdered By: Ronaldo Oates on 03-07-2023 Clarity (U) Clear Clear [facility] Urine color determinationOrd ered By: Ender Oates on 03-07-2023 Color (U) Yellow Yellow [facility] Urine glucose detectionOrder ed By: Ender Oates on 03-07-2023 Glucose Ql (U) Normal mg/dl Normal [facility] Urine leukocyte esterase det ection by dipstickOrdered By: Ender Oates on 03-07-2023 Leukocyte esterase Test strip Ql (U) 100 /ul Negative [facility] Urine pHOrdered By: Ender Oates on 03-07-2023 pH (U) 6.5 [pH] 5.0 - 8.0 [facility] Urine sediment bacteria coun t by microscopy (number/high power field)Ordered By: Ender Oates on 03-07-2023 Bacteria LM.HPF (Urine sed) [#/Area] RARE /hpf None Seen [facility] Urine specific gravity measu rementOrdered By: Ender Oates on 03-07-2023 Specific gravity (U) [Rel density] 1.010 1.002-1.030 [facility] Urobilinogen Auto test strip Ql (U)Ordered By: Ender Oates on 03-07-2023 Urobilinogen Ql (U) Normal mg/dl Normal [facility] Basophil percentageOrdered B y: Ender Oates on 02-09-2023 Bilirubin [Mass/Vol] 0.50 mg/dL 0.20-1.00 [facility] Comment on above: For patients on eltr ombopag therapy, use of Dimension [place] TBIL is not recommended. Chloride [Moles/Vol] 107 mmol/L 98-107 [facility] Cholesterol [Mass/Vol] 121 mg/dL <200 [facility] Comment on above: <200 mg/dL Desirable 200-240 mg/dL Borderline >240 mg/dL High Risk Glucose [Mass/Vol] 87 mg/dL 74-106 [facility] Potassium [Moles/Vol] 4.3 mmol/L 3.5-5.1 [facility] Protein [Mass/Vol] 6.5 g/dL 6.4-8.2 [facility] Sodium [Moles/Vol] 138 mmol/L 136-145 [facility] Triglyceride [Mass/Vol] 81 mg/dL <199 [facility] Comment on above: The drugs N-Acetylcy steine and Metamizole may falsely depress this assay.Serum Triglycerides Reference Interval Normal <150 mg/dL Borderline high 150 - 199 mg/dL High 200 - 499 mg/dL Very High > or = 500 mg/dL WBC (Bld) [#/Vol] 6.3 10*3/uL 4.4-11.0 [facility] Blood erythrocytes count (nu mber/volume)Ordered By: Ender Oates on 02-09-2023 RBC (Bld) [#/Vol] 3.95 10*6/uL 4.2-5.4 [facility] Blood hemoglobin measurement (mass/volume)Ordered By: Ender Oates on 02-09-2023 Hemoglobin (Bld) [Mass/Vol] 12.9 g/dL 12.0-15.0 [facility] Blood platelet mean volumeOr dered By: Ender Oates on 02-09-2023 Platelet mean volume (Bld) [Entitic vol] 11.4 fL 6.2-12.0 [facility] Determination of erythrocyte mean corpuscular volume (MCV)Ordered By: Ender Oates on 02-09-2023 MCV (RBC) [Entitic vol] 102.8 fL 81-99 [facility] Hematocrit Auto (Bld) [Volum e fraction]Ordered By: Ender Oates on 02-09-2023 Hematocrit (Bld) [Volume fraction] 40.6 % 37-47 [facility] Laboratory - Chemistry and C hemistry - challengeOrdered By: Ender Oates on 02-09-2023 ALP [Catalytic activity/Vol] 87 U/L 45-117 [facility] ALT [Catalytic activity/Vol] 14 U/L 13-56 [facility] CO2 [Moles/Vol] 28.0 mmol/L 21.0-32.0 [facility] Globulin (S) [Mass/Vol] 3.8 g/dL 2.2-4.2 [facility] Urea nitrogen/Creatinine [Mass ratio] 26.2 mg/mg 10-20 [facility] Laboratory - Hematology and Cell countsOrdered By: Ender Oates on 02-09-2023 Erythrocyte distribution width (RBC) [Entitic vol] 53.2 fL 35.1-43.9 [facility] Erythrocyte distribution width (RBC) [Ratio] 13.8 % 11.6-14.6 [facility] MCH (RBC) [Entitic mass] 32.7 pg 27.0-32.0 [facility] MCHC Auto (RBC) [Mass/Vol]Or dered By: Ender Oates on 02-09-2023 MCHC (RBC) [Mass/Vol] 31.8 g/dL 32-36 [facility] No Panel InformationOrdered By: Ender Oates on 02-09-2023 Estimated GFR (MDRD) Amer 83 mL/min >60 [facility] Comment on above: GFR Calc Estimated GFR (MDRD) Non-Af Amer 68 mL/min >60 [facility] Comment on above: Non- GFR Calc Platelets bldOrdered By: Ronaldo Oates on 02-09-2023 Platelets (Bld) [#/Vol] 173 10*3/uL 150-450 [facility] Serum or plasma albumin tammie urement (mass/volume)Ordered By: Ender Oates on 02-09-2023 Albumin [Mass/Vol] 2.7 g/dL 3.2-5.0 [facility] Serum or plasma albumin/glob ulin mass ratioOrdered By: Ender Oates on 02-09-2023 Albumin/Globulin [Mass ratio] 0.7 {ratio} 0.9-2.4 [facility] Serum or plasma calcium tammie urement (mass/volume)Ordered By: Ender Oates on 02-09-2023 Calcium [Mass/Vol] 8.1 mg/dL 8.5-10.1 [facility] Serum or plasma cholesterol in HDL measurement (mass/volume)Ordered By: Ender Oates on 02-09-2023 Cholesterol in HDL [Mass/Vol] 55 mg/dL >40 [facility] Comment on above: The drugs N-Acetylcy steine and Metamizole may falsely depress this assay. Reference Range HDL <40 mg/dL Low HDL Cholesterol HDL >or= 60 mg/dL High HDL Cholesterol Serum or plasma cholesterol in VLDL measurement (mass/volume)Ordered By: Ender Oates on 02-09-2023 Cholesterol in VLDL [Mass/Vol] 16 mg/dL 5-40 [facility] Serum or plasma creatinine m easurement (mass/volume)Ordered By: Ender Oates on 02-09-2023 Creatinine [Mass/Vol] 0.88 mg/dL 0.55-1.02 [facility] Comment on above: The validity of the calculated GFR & GFRAA in patients over 70 years has not been determined. Clinical correlation is essential. Serum or plasma low density lipoprotein (LDL) cholesterol measurement (mass/volume)Ordered By: Ender Oates on 02-09-2023 Cholesterol in LDL [Mass/Vol] 50 mg/dL 0-130 [facility] Serum or plasma urea nitroge n measurement (mass/volume)Ordered By: Ender Oates on 02-09-2023 Urea nitrogen [Mass/Vol] 23 mg/dL 7-18 [facility] Thin prep Papanicolaou smear with manual screeningOrdered By: Ender Oates on 02-09-2023 Thin prep Papanicolaou smear with manual screening 15 U/L 15-37 [facility] Thin prep Papanicolaou smear with manual screening 3 5-15 [facility] Basophil percentageOrdered B y: Ender Oates on 01-12-2023 Bilirubin [Mass/Vol] 0.30 mg/dL 0.20-1.00 [facility] Comment on above: For patients on eltr ombopag therapy, use of Dimension [place] TBIL is not recommended. Chloride [Moles/Vol] 107 mmol/L 98-107 [facility] Glucose [Mass/Vol] 86 mg/dL 74-106 [facility] Potassium [Moles/Vol] 4.4 mmol/L 3.5-5.1 [facility] Protein [Mass/Vol] 6.3 g/dL 6.4-8.2 [facility] Sodium [Moles/Vol] 141 mmol/L 136-145 [facility] WBC (Bld) [#/Vol] 4.9 10*3/uL 4.4-11.0 [facility] Blood erythrocytes count (nu mber/volume)Ordered By: Ender Oates on 01-12-2023 RBC (Bld) [#/Vol] 3.85 10*6/uL 4.2-5.4 [facility] Blood hemoglobin measurement (mass/volume)Ordered By: Ender Oates on 01-12-2023 Hemoglobin (Bld) [Mass/Vol] 12.9 g/dL 12.0-15.0 [facility] Blood platelet mean volumeOr dered By: Ender Oates on 01-12-2023 Platelet mean volume (Bld) [Entitic vol] 11.2 fL 6.2-12.0 [facility] Determination of erythrocyte mean corpuscular volume (MCV)Ordered By: Ender Oates on 01-12-2023 MCV (RBC) [Entitic vol] 106.5 fL 81-99 [facility] Hematocrit Auto (Bld) [Volum e fraction]Ordered By: Ender Oates on 01-12-2023 Hematocrit (Bld) [Volume fraction] 41.0 % 37-47 [facility] Laboratory - Chemistry and C hemistry - challengeOrdered By: Ender Oates on 01-12-2023 ALP [Catalytic activity/Vol] 70 U/L 45-117 [facility] ALT [Catalytic activity/Vol] 18 U/L 13-56 [facility] CO2 [Moles/Vol] 31.0 mmol/L 21.0-32.0 [facility] Globulin (S) [Mass/Vol] 3.6 g/dL 2.2-4.2 [facility] Urea nitrogen/Creatinine [Mass ratio] 24.5 mg/mg 10-20 [facility] Laboratory - Hematology and Cell countsOrdered By: Ender Oates on 01-12-2023 Erythrocyte distribution width (RBC) [Entitic vol] 56.8 fL 35.1-43.9 [facility] Erythrocyte distribution width (RBC) [Ratio] 14.5 % 11.6-14.6 [facility] MCH (RBC) [Entitic mass] 33.5 pg 27.0-32.0 [facility] MCHC Auto (RBC) [Mass/Vol]Or dered By: Ender Oates on 01-12-2023 MCHC (RBC) [Mass/Vol] 31.5 g/dL 32-36 [facility] No Panel InformationOrdered By: Ender Oates on 01-12-2023 Estimated GFR (MDRD) Amer 73 mL/min >60 [facility] Comment on above: GFR Calc Estimated GFR (MDRD) Non-Af Amer 60 mL/min >60 [facility] Comment on above: Non- GFR Calc Platelets bldOrdered By: Ronaldo Oates on 01-12-2023 Platelets (Bld) [#/Vol] 171 10*3/uL 150-450 [facility] Serum or plasma albumin tammie urement (mass/volume)Ordered By: Ender Oates on 01-12-2023 Albumin [Mass/Vol] 2.7 g/dL 3.2-5.0 [facility] Serum or plasma albumin/glob ulin mass ratioOrdered By: Ender Oates on 01-12-2023 Albumin/Globulin [Mass ratio] 0.8 {ratio} 0.9-2.4 [facility] Serum or plasma calcium tammie urement (mass/volume)Ordered By: Ender Oates on 01-12-2023 Calcium [Mass/Vol] 8.7 mg/dL 8.5-10.1 [facility] Serum or plasma creatinine m easurement (mass/volume)Ordered By: Ender Oates on 01-12-2023 Creatinine [Mass/Vol] 0.98 mg/dL 0.55-1.02 [facility] Comment on above: The validity of the calculated GFR & GFRAA in patients over 70 years has not been determined. Clinical correlation is essential. Serum or plasma urea nitroge n measurement (mass/volume)Ordered By: Ender Oates on 01-12-2023 Urea nitrogen [Mass/Vol] 24 mg/dL 7-18 [facility] Thin prep Papanicolaou smear with manual screeningOrdered By: Ender Oates on 01-12-2023 Thin prep Papanicolaou smear with manual screening 17 U/L 15-37 [facility] Thin prep Papanicolaou smear with manual screening 3 5-15 [facility] Automated blood hematocrit ( percentage)Ordered By: Ender Oates on 12-30-2022 Hematocrit (Bld) [Volume fraction] 43.6 % 37-47 [facility] Basophil percentageOrdered B y: Ender Oates on 12-30-2022 Bilirubin [Mass/Vol] 0.50 mg/dL 0.20-1.00 [facility] Comment on above: For patients on eltr ombopag therapy, use of Dimension [place] TBIL is not recommended. Chloride [Moles/Vol] 105 mmol/L 98-107 [facility] Glucose [Mass/Vol] 89 mg/dL 74-106 [facility] Potassium [Moles/Vol] 4.1 mmol/L 3.5-5.1 [facility] Protein [Mass/Vol] 7.4 g/dL 6.4-8.2 [facility] Sodium [Moles/Vol] 137 mmol/L 136-145 [facility] WBC (Bld) [#/Vol] 6.6 10*3/uL 4.4-11.0 [facility] Blood erythrocytes count (nu mber/volume)Ordered By: Ender Oates on 12-30-2022 RBC (Bld) [#/Vol] 4.20 10*6/uL 4.2-5.4 [facility] Blood hemoglobin measurement (mass/volume)Ordered By: Ender Oates on 12-30-2022 Hemoglobin (Bld) [Mass/Vol] 13.9 g/dL 12.0-15.0 [facility] Blood platelet mean volumeOr dered By: Ender Oates on 12-30-2022 Platelet mean volume (Bld) [Entitic vol] 12.2 fL 6.2-12.0 [facility] CBCon 12-30-2022 MCH 33.1 pG 27 - 34 pG [facility] MCHC 31.9 % Abnormal 32 - 36 % [facility] MPV 12.2 % Abnormal 7.3 - 11.1 % [facility] RDW-SD 56.2 [facility] CMP (EXTERNAL)on 12-30-2022 Alk Phos Total 85 U/L 45 - 117 U/L [facility] AST [Catalytic activity/Vol] 20 U/L 8 - 37 U/L [facility] Bili Total 0.50 mg/dL 0.2 - 1 mg/dL [facility] CO2 [Moles/Vol] 26 mmol/L 21 - 32 MEQ/L [facility] GFR AFR AMER 85 mL/MIN [facility] GFR/1.73 sq M.predicted among non-blacks MDRD (S/P/Bld) [Vol rate/Area] 70 mL/min/{1.73_m2} [facility] Determination of erythrocyte mean corpuscular volume (MCV)Ordered By: Ender Oates on 12-30-2022 MCV (RBC) [Entitic vol] 103.8 fL 81-99 [facility] Laboratory - Chemistry and C hemistry - challengeOrdered By: Ender Oates on 12-30-2022 ALP [Catalytic activity/Vol] 85 U/L 45-117 [facility] ALT [Catalytic activity/Vol] 18 U/L 13-56 [facility] CO2 [Moles/Vol] 26.0 mmol/L 21.0-32.0 [facility] Globulin (S) [Mass/Vol] 4.1 g/dL 2.2-4.2 [facility] Urea nitrogen/Creatinine [Mass ratio] 35.0 mg/mg 10-20 [facility] Laboratory - Hematology and Cell countsOrdered By: Ender Oates on 12-30-2022 Erythrocyte distribution width (RBC) [Entitic vol] 56.2 fL 35.1-43.9 [facility] Erythrocyte distribution width (RBC) [Ratio] 14.5 % 11.6-14.6 [facility] MCH (RBC) [Entitic mass] 33.1 pg 27.0-32.0 [facility] Laboratory - Microbiology an d Antimicrobial susceptibilityOrdered By: Ender Oates on 12-30-2022 Bacteria identified Cx Nom (Bld) No growth in 5 days. [facility] Bacteria identified Cx Nom (Bld) No growth in 5 days. [facility] MCHC Auto (RBC) [Mass/Vol]Or dered By: Ender Oates on 12-30-2022 MCHC (RBC) [Mass/Vol] 31.9 g/dL 32-36 [facility] No Panel InformationOrdered By: Ender Oates on 12-30-2022 Estimated GFR (MDRD) Amer 85 mL/min >60 [facility] Comment on above: GFR Calc Estimated GFR (MDRD) Non-Af Amer 70 mL/min >60 [facility] Comment on above: Non- GFR Calc Platelets bldOrdered By: Ronaldo Oates on 12-30-2022 Platelets (Bld) [#/Vol] 168 10*3/uL 150-450 [facility] Serum or plasma albumin tammie urement (mass/volume)Ordered By: Ender Oates on 12-30-2022 Albumin [Mass/Vol] 3.3 g/dL 3.2-5.0 [facility] Serum or plasma albumin/glob ulin mass ratioOrdered By: Ender Oates on 12-30-2022 Albumin/Globulin [Mass ratio] 0.8 {ratio} 0.9-2.4 [facility] Serum or plasma calcium tammie urement (mass/volume)Ordered By: Ender Oates on 12-30-2022 Calcium [Mass/Vol] 9.0 mg/dL 8.5-10.1 [facility] Serum or plasma creatinine m easurement (mass/volume)Ordered By: Ender Oates on 12-30-2022 Creatinine [Mass/Vol] 0.86 mg/dL 0.55-1.02 [facility] Comment on above: The validity of the calculated GFR & GFRAA in patients over 70 years has not been determined. Clinical correlation is essential. Serum or plasma urea nitroge n measurement (mass/volume)Ordered By: Ender Oates on 12-30-2022 Urea nitrogen [Mass/Vol] 30 mg/dL 7-18 [facility] Thin prep Papanicolaou smear with manual screeningOrdered By: Ender Oates on 12-30-2022 Thin prep Papanicolaou smear with manual screening 20 U/L 15-37 [facility] Thin prep Papanicolaou smear with manual screening 6 5-15 [facility] Automated blood hematocrit ( percentage)Ordered By: Ender Oates on 12-09-2022 Hematocrit (Bld) [Volume fraction] 41.4 % 37-47 [facility] Basophil percentageOrdered B y: Ender Oates on 12-09-2022 Bilirubin [Mass/Vol] 0.40 mg/dL 0.20-1.00 [facility] Comment on above: For patients on eltr ombopag therapy, use of Dimension [place] TBIL is not recommended. Chloride [Moles/Vol] 107 mmol/L 98-107 [facility] Glucose [Mass/Vol] 107 mg/dL 74-106 [facility] Comment on above: Fasting Glucose resu lt from 100 to 125 mg/dL suggests IMPAIRED HOMEOSTASIS per A.D.A. criteria. Potassium [Moles/Vol] 4.0 mmol/L 3.5-5.1 [facility] Protein [Mass/Vol] 6.3 g/dL 6.4-8.2 [facility] Sodium [Moles/Vol] 138 mmol/L 136-145 [facility] WBC (Bld) [#/Vol] 6.1 10*3/uL 4.4-11.0 [facility] Blood erythrocytes count (nu mber/volume)Ordered By: Ender Oates on 12-09-2022 RBC (Bld) [#/Vol] 3.98 10*6/uL 4.2-5.4 [facility] Blood hemoglobin measurement (mass/volume)Ordered By: Ender Oates on 12-09-2022 Hemoglobin (Bld) [Mass/Vol] 12.9 g/dL 12.0-15.0 [facility] Blood platelet mean volumeOr dered By: Ender Oates on 12-09-2022 Platelet mean volume (Bld) [Entitic vol] 11.0 fL 6.2-12.0 [facility] CBCon 12-09-2022 Hemoglobin (Bld) [Mass/Vol] 15.7 g/dL 12 - 16 g/dL [facility] MCH 32.4 pG 27 - 34 pG [facility] MCHC 31.2 % Abnormal 32 - 36 % [facility] MCV (RBC) [Entitic vol] 104 fL Abnormal 80 - 100 fL [facility] MPV 11.0 % 7.3 - 11.1 % [facility] RBC (Bld) [#/Vol] 4.76 10*6/uL [facility] RDW-SD 56.9 [facility] CMP (EXTERNAL)on 12-09-2022 Alk Phos Total 74 U/L 45 - 117 U/L [facility] AST [Catalytic activity/Vol] 10 U/L 8 - 37 U/L [facility] Bili Total 0.40 mg/dL 0.2 - 1 mg/dL [facility] CO2 [Moles/Vol] 27 mmol/L 21 - 32 MEQ/L [facility] Creatinine [Mass/Vol] 0.74 mg/dL 0.6 - 1.3 MG/DL [facility] GFR AFR AMER 101 mL/MIN [facility] GFR/1.73 sq M.predicted among non-blacks MDRD (S/P/Bld) [Vol rate/Area] 84 mL/min/{1.73_m2} [facility] Glucose [Mass/Vol] 104 mg/dL 74 - 106 MG/DL [facility] Urea nitrogen [Mass/Vol] 26 mg/dL Abnormal 7 - 18 MG/D L [facility] Determination of erythrocyte mean corpuscular volume (MCV)Ordered By: Ender Oates on 12-09-2022 MCV (RBC) [Entitic vol] 104.0 fL 81-99 [facility] Laboratory - Chemistry and C hemistry - challengeOrdered By: Ender Oates on 12-09-2022 ALP [Catalytic activity/Vol] 74 U/L 45-117 [facility] ALT [Catalytic activity/Vol] 17 U/L 13-56 [facility] CO2 [Moles/Vol] 27.0 mmol/L 21.0-32.0 [facility] Globulin (S) [Mass/Vol] 3.6 g/dL 2.2-4.2 [facility] Urea nitrogen/Creatinine [Mass ratio] 23.3 mg/mg 10-20 [facility] Laboratory - Hematology and Cell countsOrdered By: Ender Oates on 12-09-2022 Erythrocyte distribution width (RBC) [Entitic vol] 56.9 fL 35.1-43.9 [facility] Erythrocyte distribution width (RBC) [Ratio] 14.8 % 11.6-14.6 [facility] MCH (RBC) [Entitic mass] 32.4 pg 27.0-32.0 [facility] MCHC Auto (RBC) [Mass/Vol]Or dered By: Ender Oates on 12-09-2022 MCHC (RBC) [Mass/Vol] 31.2 g/dL 32-36 [facility] No Panel InformationOrdered By: Ender Oates on 12-09-2022 Estimated GFR (MDRD) Amer 60 mL/min >60 [facility] Comment on above: GFR Calc Estimated GFR (MDRD) Non-Af Amer 50 mL/min >60 [facility] Comment on above: Non- GFR Calc Platelets bldOrdered By: Ronaldo Oates on 12-09-2022 Platelets (Bld) [#/Vol] 185 10*3/uL 150-450 [facility] Serum or plasma albumin tammie urement (mass/volume)Ordered By: Ender Oates on 12-09-2022 Albumin [Mass/Vol] 2.7 g/dL 3.2-5.0 [facility] Serum or plasma albumin/glob ulin mass ratioOrdered By: Ender Oates on 12-09-2022 Albumin/Globulin [Mass ratio] 0.8 {ratio} 0.9-2.4 [facility] Serum or plasma calcium tammie urement (mass/volume)Ordered By: Ender Oates on 12-09-2022 Calcium [Mass/Vol] 8.3 mg/dL 8.5-10.1 [facility] Serum or plasma creatinine m easurement (mass/volume)Ordered By: Ender Oates on 12-09-2022 Creatinine [Mass/Vol] 1.16 mg/dL 0.55-1.02 [facility] Comment on above: The validity of the calculated GFR & GFRAA in patients over 70 years has not been determined. Clinical correlation is essential. Serum or plasma urea nitroge n measurement (mass/volume)Ordered By: Ender Oates on 12-09-2022 Urea nitrogen [Mass/Vol] 27 mg/dL 7-18 [facility] Thin prep Papanicolaou smear with manual screeningOrdered By: Ender Oates on 12-09-2022 Thin prep Papanicolaou smear with manual screening 18 U/L 15-37 [facility] Thin prep Papanicolaou smear with manual screening 4 5-15 [facility] Basophil percentageOrdered B y: Ender Oates on 11-27-2022 Bilirubin [Mass/Vol] 0.30 mg/dL 0.20-1.00 [facility] Comment on above: For patients on eltr ombopag therapy, use of Dimension [place] TBIL is not recommended. Chloride [Moles/Vol] 107 mmol/L 98-107 [facility] Glucose [Mass/Vol] 104 mg/dL 74-106 [facility] Comment on above: Fasting Glucose resu lt from 100 to 125 mg/dL suggests IMPAIRED HOMEOSTASIS per A.D.A. criteria. Potassium [Moles/Vol] 4.9 mmol/L 3.5-5.1 [facility] Comment on above: Slight Hemolysis, Re sult may be falsely increased. Protein [Mass/Vol] 7.4 g/dL 6.4-8.2 [facility] Sodium [Moles/Vol] 137 mmol/L 136-145 [facility] Laboratory - Chemistry and C hemistry - challengeOrdered By: Ender Oates on 11-27-2022 ALP [Catalytic activity/Vol] 93 U/L 45-117 [facility] ALT [Catalytic activity/Vol] 19 U/L 13-56 [facility] CO2 [Moles/Vol] 27.0 mmol/L 21.0-32.0 [facility] Globulin (S) [Mass/Vol] 4.4 g/dL 2.2-4.2 [facility] Natriuretic peptide B (Bld) [Mass/Vol] 64.0 pg/mL 0-100 [facility] [facility] Urea nitrogen/Creatinine [Mass ratio] 35.3 mg/mg 10-20 [facility] No Panel InformationOrdered By: Ender Oates on 11-27-2022 Estimated GFR (MDRD) Amer 101 mL/min >60 [facility] Comment on above: GFR Calc Estimated GFR (MDRD) Non-Af Amer 84 mL/min >60 [facility] Comment on above: Non- GFR Calc Thyroid Stimulating Hormone (TSH) 3.41 uIU/mL 0.358-3.74 [facility] Serum or plasma C reactive p rotein measurement (mass/volume)Ordered By: Ender Oates on 11-27-2022 CRP [Mass/Vol] mg/L 0.0-3.0 [facility] Comment on above: C-Reactive Protein ( CRP) provides useful information for thediagnosis, therapy and monitoring of inflammatory processesand associated diseases. For the evaluation of Relative Riskfor Cardiovascular Disease, a High Sensitivity CRP (HSCRP)should be ordered. Serum or plasma albumin tammie urement (mass/volume)Ordered By: Ender Oates on 11-27-2022 Albumin [Mass/Vol] 3.0 g/dL 3.2-5.0 [facility] Serum or plasma albumin/glob ulin mass ratioOrdered By: Ender Oates on 11-27-2022 Albumin/Globulin [Mass ratio] 0.7 {ratio} 0.9-2.4 [facility] Serum or plasma calcium tammie urement (mass/volume)Ordered By: Ender Oates on 11-27-2022 Calcium [Mass/Vol] 8.6 mg/dL 8.5-10.1 [facility] Serum or plasma creatinine m easurement (mass/volume)Ordered By: Ender Oates on 11-27-2022 Creatinine [Mass/Vol] 0.74 mg/dL 0.55-1.02 [facility] Comment on above: The validity of the calculated GFR & GFRAA in patients over 70 years has not been determined. Clinical correlation is essential. Serum or plasma urea nitroge n measurement (mass/volume)Ordered By: Ender Oates on 11-27-2022 Urea nitrogen [Mass/Vol] 26 mg/dL 7-18 [facility] Thin prep Papanicolaou smear with manual screeningOrdered By: Ender Oates on 11-27-2022 Thin prep Papanicolaou smear with manual screening 20 U/L 15-37 [facility] Comment on above: Slight Hemolysis, Re sult may be falsely increased. Thin prep Papanicolaou smear with manual screening 3 5-15 [facility] Basic metabolic 1998 panelon 11-17-2022 Anion gap [Moles/Vol] 5 mmol/L 3 - 13 mmol/L [facility] Calcium [Mass/Vol] 8.5 mg/dL 8.4 - 10. 4 mg/dL [facility] Chloride [Moles/Vol] 105 mmol/L 98 - 10 7 mmol/L [facility] CO2 [Moles/Vol] 27 mmol/L 22 - 30 mmol/L [facility] Creatinine [Mass/Vol] 0.79 mg/dL 0.52 - 1.04 mg/dL [facility] GFR/1.73 sq M.predicted MDRD (S/P/Bld) [Vol rate/Area] 82.6 mL/min/{1.73_m2} - PINF [facility] Comment on above: Calculation based on the Chronic Kidney Disease Epidemiology Collaboration (CKD-EPI) equation refit without adjustment for race Glucose [Mass/Vol] 93 mg/dL 70 - 100 mg/dL [facility] Interpretation and review of laboratory results Abnormal [facility] Potassium [Moles/Vol] 4.5 mmol/L 3.5 - 5.1 mmol/L [facility] Sodium [Moles/Vol] 137 mmol/L 135 - 145 mmol/L [facility] Urea nitrogen [Mass/Vol] 32 mg/dL High 7 - 17 mg/d L [facility] CBC W Auto Differential pane l (Bld)Ordered By: Mychal Blackwood on 11-17-2022 Basophils (Bld) [#/Vol] 0.1 10*3/uL 0.0 - 0.2 10*3/uL [facility] Basophils/100 WBC (Bld) 1.6 % 0.0 - 2.0 % [facility] Eosinophils (Bld) [#/Vol] 0.1 10*3/uL 0.0 - 0.5 10*3/uL [facility] Eosinophils/100 WBC (Bld) 0.9 % Low 1.0 - 6.0 % [facility] Erythrocyte distribution width (RBC) [Ratio] 15.2 % High 11.5 - 14.5 % [facility] Hematocrit (Bld) [Volume fraction] 45.0 % 35.0 - 47.0 % [facility] Hemoglobin (Bld) [Mass/Vol] 15.3 g/dL 11.7 - 16.0 g/dL [facility] Interpretation and review of laboratory results Abnormal [facility] Lymphocytes (Bld) [#/Vol] 1.9 10*3/uL 1.0 - 4.3 10*3/uL [facility] Lymphocytes/100 WBC (Bld) 27.2 % 20.0 - 40.0 % [facility] MCH (RBC) [Entitic mass] 33.5 pg 26. 0 - 34.0 pg [facility] MCHC (RBC) [Mass/Vol] 34.1 % 32.0 - 36.0 % [facility] MCV (RBC) [Entitic vol] 98.3 fL High 80.0 - 98.0 fL [facility] Monocytes (Bld) [#/Vol] 0.6 10*3/uL 0.0 - 0.8 10*3/uL [facility] Monocytes/100 WBC (Bld) 8.6 % 2.0 - 10.0 % [facility] Neutrophils (Bld) [#/Vol] 4.4 10*3/uL 1.8 - 7.0 10*3/uL [facility] Neutrophils/100 WBC (Bld) 61.7 % 40.0 - 80.0 % [facility] Nucleated RBC/100 WBC (Bld) [Ratio] 0.0 % [facility] Platelet mean volume (Bld) [Entitic vol] 9.5 fL 7.4 - 12.4 fL [facility] Platelets (Bld) [#/Vol] 200 10*3/uL 140 - 440 10*3/uL [facility] RBC (Bld) [#/Vol] 4.58 10*6/uL 3.8 - 5.20 10*6/uL [facility] WBC (Bld) [#/Vol] 7.1 10*3/uL 3.6 - 10.7 10*3/uL [facility] CTA Chest vessels WO and W c ontrast [place] 11-17-2022 Impression:The etiology of the symptoms is not certain. No large central embolism seen.. Report Dictated on Electronically Signed By: John Paul Boone Electronically Signed Date/Time: 11/17/2022 11:24 AM EDT [employer] [facility] 1955 [id number] Exam Date/Time: 11/17/2022 10:50 Procedure: CT CHEST [...] abdomen: No convincing evidence of acute process.. [employer] John Paul Boone MD - 11/17/2022 [facility] Name: [facility] 1955 [id number] Exam Date/Time: 11/17/2022 10:50 Procedure: CT CHEST [...] Electronically Signed Date/Time: 11/17/2022 11:24 AM EDT [facility] Radiology Study observation (narrative) [facility] arun CTA Chest vessels WO and W c ontrast IVOrdered By: John Paul Boone on 11-17-2022 [facility] Work Phone: Laboratory - Chemistry and C hemistry - challengeon 11-17-2022 Troponin I.cardiac [Mass/Vol] ng/mL 0.000 - 0.034 ng/mL [facility] Natriuretic peptide B [Mass/ Vol]on 11-17-2022 Natriuretic peptide B (Bld) [Mass/Vol] 85 pg/mL <20 - 300 [facility] No Panel Informationon 11-17 No evidence of [...] Goodman DO on 11/17/2022 at 11:06 EDT. Punch Card Operator Details A chavez scale, color Doppler imaging [...] Interpretation and review of laboratory results Normal [facility] Troponin I.cardiac [Mass/Vol ]on 11-17-2022 Patients with high levels of Biotin oral intake (ie >5 mg/day) may have falsely decreased Troponin levels. [facility] Basophil percentageOrdered B y: Ender Oates on 11-10-2022 Bilirubin [Mass/Vol] 0.60 mg/dL 0.20-1.00 [facility] Comment on above: For patients on eltr ombopag therapy, use of [employer] [place] TBIL is not recommended. Chloride [Moles/Vol] 106 mmol/L 98-107 [facility] Glucose [Mass/Vol] 95 mg/dL 74-106 [facility] Potassium [Moles/Vol] 5.5 mmol/L 3.5-5.1 [facility] Protein [Mass/Vol] 7.3 g/dL 6.4-8.2 [facility] Sodium [Moles/Vol] 140 mmol/L 136-145 [facility] WBC (Bld) [#/Vol] 9.6 10*3/uL 4.4-11.0 [facility] Blood erythrocytes count (nu mber/volume)Ordered By: Ender Oates on 11-10-2022 RBC (Bld) [#/Vol] 4.76 10*6/uL 4.2-5.4 [facility] Blood hemoglobin measurement (mass/volume)Ordered By: Ender Oates on 11-10-2022 Hemoglobin (Bld) [Mass/Vol] 15.7 g/dL 12.0-15.0 [facility] Blood platelet mean volumeOr dered By: Ender Oates on 11-10-2022 Platelet mean volume (Bld) [Entitic vol] 11.7 fL 6.2-12.0 [facility] Determination of erythrocyte mean corpuscular volume (MCV)Ordered By: Ender Oates on 11-10-2022 MCV (RBC) [Entitic vol] 104.0 fL 81-99 [facility] Hematocrit Auto (Bld) [Volum e fraction]Ordered By: Ender Oates on 11-10-2022 Hematocrit (Bld) [Volume fraction] 49.5 % 37-47 [facility] Laboratory - Chemistry and C hemistry - challengeOrdered By: Ender Oates on 11-10-2022 ALP [Catalytic activity/Vol] 91 U/L 45-117 [facility] ALT [Catalytic activity/Vol] 17 U/L 13-56 [facility] CO2 [Moles/Vol] 24.0 mmol/L 21.0-32.0 [facility] Globulin (S) [Mass/Vol] 3.9 g/dL 2.2-4.2 [facility] Urea nitrogen/Creatinine [Mass ratio] 34.2 mg/mg 10-20 [facility] Laboratory - Hematology and Cell countsOrdered By: Ender Oates on 11-10-2022 Erythrocyte distribution width (RBC) [Entitic vol] 57.3 fL 35.1-43.9 [facility] Erythrocyte distribution width (RBC) [Ratio] 14.7 % 11.6-14.6 [facility] MCH (RBC) [Entitic mass] 33.0 pg 27.0-32.0 [facility] MCHC Auto (RBC) [Mass/Vol]Or dered By: Ender Oates on 11-10-2022 MCHC (RBC) [Mass/Vol] 31.7 g/dL 32-36 [facility] No Panel InformationOrdered By: Ender Oates on 11-10-2022 Estimated GFR (MDRD) Amer 72 mL/min >60 [facility] Comment on above: GFR Calc Estimated GFR (MDRD) Non-Af Amer 59 mL/min >60 [facility] Comment on above: Non- GFR Calc Platelets bldOrdered By: Ronaldo Oates on 11-10-2022 Platelets (Bld) [#/Vol] 206 10*3/uL 150-450 [facility] Serum or plasma albumin tammie urement (mass/volume)Ordered By: Ender Oates on 11-10-2022 Albumin [Mass/Vol] 3.4 g/dL 3.2-5.0 [facility] Serum or plasma albumin/glob ulin mass ratioOrdered By: Ender Oates on 11-10-2022 Albumin/Globulin [Mass ratio] 0.9 {ratio} 0.9-2.4 [facility] Serum or plasma calcium tammie urement (mass/volume)Ordered By: Ender Oates on 11-10-2022 Calcium [Mass/Vol] 9.2 mg/dL 8.5-10.1 [facility] Serum or plasma creatinine m easurement (mass/volume)Ordered By: Ender Oates on 11-10-2022 Creatinine [Mass/Vol] 0.99 mg/dL 0.55-1.02 [facility] Comment on above: The validity of the calculated GFR & GFRAA in patients over 70 years has not been determined. Clinical correlation is essential. Serum or plasma urea nitroge n measurement (mass/volume)Ordered By: Ender Oates on 11-10-2022 Urea nitrogen [Mass/Vol] 34 mg/dL 7-18 [facility] Thin prep Papanicolaou smear with manual screeningOrdered By: Ender Oates on 11-10-2022 Thin prep Papanicolaou smear with manual screening 20 U/L 15-37 [facility] Thin prep Papanicolaou smear with manual screening 10 5-15 [facility] Automated blood hematocrit ( percentage)Ordered By: Ender Oates on 10-06-2022 Hematocrit (Bld) [Volume fraction] 49.3 % 37-47 [facility] Basophil percentageOrdered B y: Ender Oates on 10-06-2022 Chloride [Moles/Vol] 108 mmol/L 98-107 [facility] Glucose [Mass/Vol] 156 mg/dL 74-106 [facility] Comment on above: Fasting Glucose resu lt greater than or equal to 126 mg/dL suggests DIABETES MELLITUS per A.D.A. criteria. Potassium [Moles/Vol] 4.3 mmol/L 3.5-5.1 [facility] Protein [Mass/Vol] 7.9 g/dL 6.4-8.2 [facility] Sodium [Moles/Vol] 139 mmol/L 136-145 [facility] WBC (Bld) [#/Vol] 8.1 10*3/uL 4.4-11.0 [facility] Bilirubin [Mass/Vol] 0.70 mg/dL 0.20-1.00 [facility] Comment on above: For patients on eltr ombopag therapy, use of [employer] [place] TBIL is not recommended. Blood erythrocytes count (nu mber/volume)Ordered By: Ender Oates on 10-06-2022 RBC (Bld) [#/Vol] 4.89 10*6/uL 4.2-5.4 [facility] Blood hemoglobin measurement (mass/volume)Ordered By: Ender Oates on 10-06-2022 Hemoglobin (Bld) [Mass/Vol] 15.9 g/dL 12.0-15.0 [facility] Blood platelet mean volumeOr dered By: Ender Oates on 10-06-2022 Platelet mean volume (Bld) [Entitic vol] 11.6 fL 6.2-12.0 [facility] CBCon 10-06-2022 Erythrocyte distribution width (RBC) [Ratio] 14.8 % 11.7 - 15.0 % [facility] Erythrocyte distribution width (RBC) [Ratio] 14.7 % 11.7 - 15.0 % [facility] Hematocrit (Bld) [Volume fraction] 43.5 % Abnormal 33 - 42 % [facility] Hematocrit (Bld) [Volume fraction] 45.6 % 35 - 47 % [facility] Hemoglobin (Bld) [Mass/Vol] 13.9 g/dL 12 - 16 g/dL [facility] Hemoglobin (Bld) [Mass/Vol] 14.1 g/dL 12 - 16 g/dL [facility] MCH 31.7 pG 27 - 34 pG [facility] MCH (RBC) [Entitic mass] 32.6 pg 25. 4 - 34.6 pg [facility] MCHC 32 % 32 - 36 % [facility] MCHC 30.9 % Abnormal 32 - 36 % [facility] MCV (RBC) [Entitic vol] 101.9 fL Abnormal 80 - 100 fL [facility] MCV (RBC) [Entitic vol] 102.5 fL Abnormal 80 - 100 fL [facility] MPV 11.2 % Abnormal 7.3 - 11.1 % [facility] MPV 10.7 % 7.3 - 11.1 % [facility] Platelets (Bld) [#/Vol] 198 10*3/uL 150 - 400 k/uL [facility] Platelets (Bld) [#/Vol] 222 10*3/uL 150 - 400 k/uL [facility] RBC (Bld) [#/Vol] 4.27 10*6/uL [facility] RBC (Bld) [#/Vol] 4.45 10*6/uL 4.2 - 5.4 M/uL [facility] RDW-SD 55.7 [facility] RDW-SD 56 [facility] WBC (Bld) [#/Vol] 7.7 10*3/uL 4.0 - 11.0 K/uL [facility] WBC (Bld) [#/Vol] 8.2 10*3/uL 4.0 - 11.0 K/uL [facility] CMP (EXTERNAL)on 10-06-2022 Albumin [Mass/Vol] 3.1 g/dL Abnormal 3.2 - 4.6 gm/dL [facility] Alk Phos Total 74 U/L 45 - 117 U/L [facility] Alk Phos Total 61 U/L 45 - 117 U/L [facility] Alk Phos Total 76 U/L 45 - 117 U/L [facility] ALT [Catalytic activity/Vol] 18 U/L 12 - 78 U/L [facility] ALT [Catalytic activity/Vol] 20 U/L 12 - 78 U/L [facility] AST [Catalytic activity/Vol] 19 U/L 8 - 37 U/L [facility] Bili Total 0.70 mg/dL 0.2 - 1 mg/dL [facility] Calcium [Mass/Vol] 8.7 mg/dL 8.5 - 10. 1 mg/dL [facility] Calcium [Mass/Vol] 8.8 mg/dL 8.5 - 10. 1 mg/dL [facility] Chloride [Moles/Vol] 104 mmol/L 98 - 10 7 MEQ/L [facility] Chloride [Moles/Vol] 109 mmol/L Abnormal 98 - 10 7 MEQ/L [facility] CO2 [Moles/Vol] 26 mmol/L 21 - 32 MEQ/L [facility] CO2 [Moles/Vol] 28 mmol/L 21 - 32 MEQ/L [facility] CO2 [Moles/Vol] 23 mmol/L 21 - 32 MEQ/L [facility] Creatinine [Mass/Vol] 0.76 mg/dL 0.6 - 1.3 MG/DL [facility] GFR AFR AMER 98 mL/MIN [facility] GFR AFR AMER 91 mL/MIN [facility] GFR/1.73 sq M.predicted among non-blacks MDRD (S/P/Bld) [Vol rate/Area] 81 mL/min/{1.73_m2} [facility] GFR/1.73 sq M.predicted among non-blacks MDRD (S/P/Bld) [Vol rate/Area] 75 mL/min/{1.73_m2} [facility] Globulin (S) [Mass/Vol] 3.8 g/dL [facility] Glucose [Mass/Vol] 79 mg/dL 74 - 106 MG/DL [facility] MCH 32.5 pG 27 - 34 pG [facility] MCHC 32.3 % 32 - 36 % [facility] MPV 11.6 % Abnormal 7.3 - 11.1 % [facility] Potassium [Moles/Vol] 4.5 mmol/L 3.5 - 5.1 mmol/L [facility] Potassium [Moles/Vol] 3.8 mmol/L 3.5 - 5.1 mmol/L [facility] Protein [Mass/Vol] 6.9 g/dL 6.4 - 8.2 gm/dL [facility] Protein [Mass/Vol] 6.5 g/dL 6.4 - 8.2 gm/dL [facility] RDW-SD 55.8 [facility] Sodium [Moles/Vol] 138 mmol/L 136 - 145 mmol/L [facility] Urea nitrogen [Mass/Vol] 23 mg/dL Abnormal 7 - 18 MG/D L [facility] Urea nitrogen/Creatinine [Mass ratio] 34.3 mg/mg Abnormal 9 - 20 [facility] Determination of erythrocyte mean corpuscular volume (MCV)Ordered By: Ender Oates on 2023 MCV (RBC) [Entitic vol] 100.8 fL 81-99 [facility] Laboratory - Chemistry and C hemistry - challengeOrdered By: Ender Oates on 10-06-2022 ALT [Catalytic activity/Vol] 22 U/L 13-56 [facility] Urea nitrogen/Creatinine [Mass ratio] 24.7 mg/mg 10-20 [facility] ALP [Catalytic activity/Vol] 76 U/L 45-117 [facility] CO2 [Moles/Vol] 23.0 mmol/L 21.0-32.0 [facility] Globulin (S) [Mass/Vol] 4.4 g/dL 2.2-4.2 [facility] Laboratory - Chemistry and C hemistry - challengeon 10-06-2022 Anion gap [Moles/Vol] 8 mmol/L [facility] AST [Catalytic activity/Vol] 25 U/L 8 - 37 U/L [facility] Laboratory - Hematology and Cell countsOrdered By: Ender Oates on 10-06-2022 Erythrocyte distribution width (RBC) [Ratio] 14.9 % 11.6-14.6 [facility] Erythrocyte distribution width (RBC) [Entitic vol] 55.8 fL 35.1-43.9 [facility] MCH (RBC) [Entitic mass] 32.5 pg 27.0-32.0 [facility] MCHC Auto (RBC) [Mass/Vol]Or dered By: Ender Oates on 10-06-2022 MCHC (RBC) [Mass/Vol] 32.3 g/dL 32-36 [facility] No Panel Informationon 10-06 Bili Total 0.40 mg/dL 0.2 - 1 mg/dL [facility] No Panel InformationOrdered By: Ender Oates on 10-06-2022 Estimated GFR (MDRD) Amer 91 mL/min >60 [facility] Comment on above: GFR Calc Estimated GFR (MDRD) Non-Af Amer 75 mL/min >60 [facility] Comment on above: Non- GFR Calc Platelets bldOrdered By: Ronaldo Oates on 10-06-2022 Platelets (Bld) [#/Vol] 202 10*3/uL 150-450 [facility] Serum or plasma albumin tammie urement (mass/volume)Ordered By: Ender Oates on 10-06-2022 Albumin [Mass/Vol] 3.5 g/dL 3.2-5.0 [facility] Serum or plasma albumin/glob ulin mass ratioOrdered By: Ender Oates on 10-06-2022 Albumin/Globulin [Mass ratio] 0.8 {ratio} 0.9-2.4 [facility] Serum or plasma calcium tammie urement (mass/volume)Ordered By: Ender Oates on 10-06-2022 Calcium [Mass/Vol] 9.3 mg/dL 8.5-10.1 [facility] Serum or plasma creatinine m easurement (mass/volume)Ordered By: Ender Oates on 10-06-2022 Creatinine [Mass/Vol] 0.81 mg/dL 0.55-1.02 [facility] Comment on above: The validity of the calculated GFR & GFRAA in patients over 70 years has not been determined. Clinical correlation is essential. Serum or plasma urea nitroge n measurement (mass/volume)Ordered By: Ender Oates on 10-06-2022 Urea nitrogen [Mass/Vol] 20 mg/dL 7-18 [facility] Thin prep Papanicolaou smear with manual screeningOrdered By: Ender Oates on 10-06-2022 Thin prep Papanicolaou smear with manual screening 25 U/L 15-37 [facility] Thin prep Papanicolaou smear with manual screening 8 5-15 [facility] Basophil percentageOrdered B y: Ender Oates on 09-08-2022 Bilirubin [Mass/Vol] 0.40 mg/dL 0.20-1.00 [facility] Comment on above: For patients on eltr ombopag therapy, use of [employer]ension [place] TBIL is not recommended. Chloride [Moles/Vol] 109 mmol/L 98-107 [facility] Glucose [Mass/Vol] 116 mg/dL 74-106 [facility] Comment on above: Fasting Glucose resu lt from 100 to 125 mg/dL suggests IMPAIRED HOMEOSTASIS per A.D.A. criteria. Potassium [Moles/Vol] 3.8 mmol/L 3.5-5.1 [facility] Protein [Mass/Vol] 6.5 g/dL 6.4-8.2 [facility] Sodium [Moles/Vol] 139 mmol/L 136-145 [facility] WBC (Bld) [#/Vol] 8.2 10*3/uL 4.4-11.0 [facility] Blood erythrocytes count (nu mber/volume)Ordered By: Ender Oates on 09-08-2022 RBC (Bld) [#/Vol] 4.45 10*6/uL 4.2-5.4 [facility] Blood hemoglobin measurement (mass/volume)Ordered By: Ender Oates on 09-08-2022 Hemoglobin (Bld) [Mass/Vol] 14.1 g/dL 12.0-15.0 [facility] Blood platelet mean volumeOr dered By: Ender Oates on 09-08-2022 Platelet mean volume (Bld) [Entitic vol] 10.7 fL 6.2-12.0 [facility] Determination of erythrocyte mean corpuscular volume (MCV)Ordered By: Ender Oates on 09-08-2022 MCV (RBC) [Entitic vol] 102.5 fL 81-99 [facility] Hematocrit Auto (Bld) [Volum e fraction]Ordered By: Ender Oates on 09-08-2022 Hematocrit (Bld) [Volume fraction] 45.6 % 37-47 [facility] Laboratory - Chemistry and C hemistry - challengeOrdered By: Ender Oates on 09-08-2022 ALP [Catalytic activity/Vol] 61 U/L 45-117 [facility] ALT [Catalytic activity/Vol] 20 U/L 13-56 [facility] CO2 [Moles/Vol] 28.0 mmol/L 21.0-32.0 [facility] Globulin (S) [Mass/Vol] 3.6 g/dL 2.2-4.2 [facility] Urea nitrogen/Creatinine [Mass ratio] 30.3 mg/mg 10-20 [facility] Laboratory - Hematology and Cell countsOrdered By: Ender Oates on 09-08-2022 Erythrocyte distribution width (RBC) [Entitic vol] 56.0 fL 35.1-43.9 [facility] Erythrocyte distribution width (RBC) [Ratio] 14.7 % 11.6-14.6 [facility] MCH (RBC) [Entitic mass] 31.7 pg 27.0-32.0 [facility] MCHC Auto (RBC) [Mass/Vol]Or dered By: Ender Oates on 09-08-2022 MCHC (RBC) [Mass/Vol] 30.9 g/dL 32-36 [facility] No Panel InformationOrdered By: Ender Oates on 09-08-2022 Estimated GFR (MDRD) Amer 98 mL/min >60 [facility] Comment on above: GFR Calc Estimated GFR (MDRD) Non-Af Amer 81 mL/min >60 [facility] Comment on above: Non- GFR Calc Platelets bldOrdered By: Ronaldo Oates on 09-08-2022 Platelets (Bld) [#/Vol] 222 10*3/uL 150-450 [facility] Serum or plasma albumin tammie urement (mass/volume)Ordered By: Ender Oates on 09-08-2022 Albumin [Mass/Vol] 2.9 g/dL 3.2-5.0 [facility] Serum or plasma albumin/glob ulin mass ratioOrdered By: Ender Oates on 09-08-2022 Albumin/Globulin [Mass ratio] 0.8 {ratio} 0.9-2.4 [facility] Serum or plasma calcium tammie urement (mass/volume)Ordered By: Ender Oates on 09-08-2022 Calcium [Mass/Vol] 8.8 mg/dL 8.5-10.1 [facility] Serum or plasma creatinine m easurement (mass/volume)Ordered By: Ender Oates on 09-08-2022 Creatinine [Mass/Vol] 0.76 mg/dL 0.55-1.02 [facility] Comment on above: The validity of the calculated GFR & GFRAA in patients over 70 years has not been determined. Clinical correlation is essential. Serum or plasma urea nitroge n measurement (mass/volume)Ordered By: Ender Oates on 09-08-2022 Urea nitrogen [Mass/Vol] 23 mg/dL 7-18 [facility] Thin prep Papanicolaou smear with manual screeningOrdered By: Ender Oates on 09-08-2022 Thin prep Papanicolaou smear with manual screening 19 U/L 15-37 [facility] Thin prep Papanicolaou smear with manual screening 2 5-15 [facility] Basophil percentageOrdered B y: Ender Oates on 08-28-2022 WBC (Bld) [#/Vol] 7.7 10*3/uL 4.4-11.0 [facility] Blood erythrocytes count (nu mber/volume)Ordered By: Ender Oates on 08-28-2022 RBC (Bld) [#/Vol] 4.27 10*6/uL 4.2-5.4 [facility] Blood hemoglobin measurement (mass/volume)Ordered By: Ender Oates on 08-28-2022 Hemoglobin (Bld) [Mass/Vol] 13.9 g/dL 12.0-15.0 [facility] Blood platelet mean volumeOr dered By: Ender Oates on 08-28-2022 Platelet mean volume (Bld) [Entitic vol] 11.2 fL 6.2-12.0 [facility] Determination of erythrocyte mean corpuscular volume (MCV)Ordered By: Ender Oates on 08-28-2022 MCV (RBC) [Entitic vol] 101.9 fL 81-99 [facility] Hematocrit Auto (Bld) [Volum e fraction]Ordered By: Ender Oates on 08-28-2022 Hematocrit (Bld) [Volume fraction] 43.5 % 37-47 [facility] Laboratory - Hematology and Cell countsOrdered By: Ender Oates on 08-28-2022 Erythrocyte distribution width (RBC) [Entitic vol] 55.7 fL 35.1-43.9 [facility] Erythrocyte distribution width (RBC) [Ratio] 14.8 % 11.6-14.6 [facility] MCH (RBC) [Entitic mass] 32.6 pg 27.0-32.0 [facility] MCHC Auto (RBC) [Mass/Vol]Or dered By: Ender Oates on 08-28-2022 MCHC (RBC) [Mass/Vol] 32.0 g/dL 32-36 [facility] Platelets bldOrdered By: Ronaldo javier Gracie on 08-28-2022 Platelets (Bld) [#/Vol] 198 10*3/uL 150-450 [facility] Basophil percentageOrdered B y: Ender Oates on 08-11-2022 Bilirubin [Mass/Vol] 0.40 mg/dL 0.20-1.00 [facility] Comment on above: For patients on eltr ombopag therapy, use of Dimension [place] TBIL is not recommended. Chloride [Moles/Vol] 104 mmol/L 98-107 [facility] Glucose [Mass/Vol] 79 mg/dL 74-106 [facility] Potassium [Moles/Vol] 4.5 mmol/L 3.5-5.1 [facility] Protein [Mass/Vol] 6.9 g/dL 6.4-8.2 [facility] Sodium [Moles/Vol] 138 mmol/L 136-145 [facility] WBC (Bld) [#/Vol] 7.5 10*3/uL 4.4-11.0 [facility] Blood erythrocytes count (nu mber/volume)Ordered By: Ender Oates on 08-11-2022 RBC (Bld) [#/Vol] 4.57 10*6/uL 4.2-5.4 [facility] Blood hemoglobin measurement (mass/volume)Ordered By: Ender Oates on 08-11-2022 Hemoglobin (Bld) [Mass/Vol] 14.6 g/dL 12.0-15.0 [facility] Blood platelet mean volumeOr dered By: Ender Oates on 08-11-2022 Platelet mean volume (Bld) [Entitic vol] 11.5 fL 6.2-12.0 [facility] Determination of erythrocyte mean corpuscular volume (MCV)Ordered By: Ender Oates on 08-11-2022 MCV (RBC) [Entitic vol] 102.0 fL 81-99 [facility] Hematocrit Auto (Bld) [Volum e fraction]Ordered By: Ender Oates on 08-11-2022 Hematocrit (Bld) [Volume fraction] 46.6 % 37-47 [facility] Laboratory - Chemistry and C hemistry - challengeOrdered By: Ender Oates on 08-11-2022 ALP [Catalytic activity/Vol] 74 U/L 45-117 [facility] ALT [Catalytic activity/Vol] 18 U/L 13-56 [facility] CO2 [Moles/Vol] 26.0 mmol/L 21.0-32.0 [facility] Globulin (S) [Mass/Vol] 3.8 g/dL 2.2-4.2 [facility] Urea nitrogen/Creatinine [Mass ratio] 34.3 mg/mg 10-20 [facility] Laboratory - Hematology and Cell countsOrdered By: Ender Oates on 08-11-2022 Erythrocyte distribution width (RBC) [Entitic vol] 55.5 fL 35.1-43.9 [facility] Erythrocyte distribution width (RBC) [Ratio] 14.6 % 11.6-14.6 [facility] MCH (RBC) [Entitic mass] 31.9 pg 27.0-32.0 [facility] MCHC Auto (RBC) [Mass/Vol]Or dered By: Ender Oates on 08-11-2022 MCHC (RBC) [Mass/Vol] 31.3 g/dL 32-36 [facility] No Panel InformationOrdered By: Ender Oates on 08-11-2022 Estimated GFR (MDRD) Amer 77 mL/min >60 [facility] Comment on above: GFR Calc Estimated GFR (MDRD) Non-Af Amer 64 mL/min >60 [facility] Comment on above: Non- GFR Calc Platelets bldOrdered By: Ronaldo Oates on 08-11-2022 Platelets (Bld) [#/Vol] 193 10*3/uL 150-450 [facility] Serum or plasma albumin tammie urement (mass/volume)Ordered By: Ender Oates on 08-11-2022 Albumin [Mass/Vol] 3.1 g/dL 3.2-5.0 [facility] Serum or plasma albumin/glob ulin mass ratioOrdered By: Ender Oates on 08-11-2022 Albumin/Globulin [Mass ratio] 0.8 {ratio} 0.9-2.4 [facility] Serum or plasma calcium tammie urement (mass/volume)Ordered By: Ender Oates on 08-11-2022 Calcium [Mass/Vol] 8.7 mg/dL 8.5-10.1 [facility] Serum or plasma creatinine m easurement (mass/volume)Ordered By: Ender Oates on 08-11-2022 Creatinine [Mass/Vol] 0.93 mg/dL 0.55-1.02 [facility] Comment on above: The validity of the calculated GFR & GFRAA in patients over 70 years has not been determined. Clinical correlation is essential. Serum or plasma urea nitroge n measurement (mass/volume)Ordered By: Ender Oates on 08-11-2022 Urea nitrogen [Mass/Vol] 32 mg/dL 7-18 [facility] Thin prep Papanicolaou smear with manual screeningOrdered By: Ender Oates on 08-11-2022 Thin prep Papanicolaou smear with manual screening 25 U/L 15-37 [facility] Thin prep Papanicolaou smear with manual screening 8 5-15 [facility] Basophil percentageOrdered B y: Ender Oates on 08-08-2022 Cholesterol [Mass/Vol] 142 mg/dL <200 [facility] Comment on above: <200 mg/dL Desirable 200-240 mg/dL Borderline >240 mg/dL High Risk Triglyceride [Mass/Vol] 145 mg/dL <199 [facility] Comment on above: The drugs N-Acetylcy steine and Metamizole may falsely depress this assay.Serum Triglycerides Reference Interval Normal <150 mg/dL Borderline high 150 - 199 mg/dL High 200 - 499 mg/dL Very High > or = 500 mg/dL Serum or plasma cholesterol in HDL measurement (mass/volume)Ordered By: Ender Oates on 08-08-2022 Cholesterol in HDL [Mass/Vol] 60 mg/dL >40 [facility] Comment on above: The drugs N-Acetylcy steine and Metamizole may falsely depress this assay. Reference Range HDL <40 mg/dL Low HDL Cholesterol HDL >or= 60 mg/dL High HDL Cholesterol Serum or plasma cholesterol in VLDL measurement (mass/volume)Ordered By: Ender Oates on 08-08-2022 Cholesterol in VLDL [Mass/Vol] 29 mg/dL 5-40 [facility] Serum or plasma low density lipoprotein (LDL) cholesterol measurement (mass/volume)Ordered By: Endre Oates on 08-08-2022 Cholesterol in LDL [Mass/Vol] 53 mg/dL 0-130 [facility] Basophil percentageOrdered B y: Ender Oates on 07-14-2022 Bilirubin [Mass/Vol] 0.40 mg/dL 0.20-1.00 [facility] Comment on above: For patients on eltr ombopag therapy, use of Dimension [place] TBIL is not recommended. Chloride [Moles/Vol] 109 mmol/L 98-107 [facility] Glucose [Mass/Vol] 90 mg/dL 74-106 [facility] Potassium [Moles/Vol] 4.4 mmol/L 3.5-5.1 [facility] Protein [Mass/Vol] 6.7 g/dL 6.4-8.2 [facility] Sodium [Moles/Vol] 143 mmol/L 136-145 [facility] WBC (Bld) [#/Vol] 7.2 10*3/uL 4.4-11.0 [facility] Blood erythrocytes count (nu mber/volume)Ordered By: Ender Oates on 07-14-2022 RBC (Bld) [#/Vol] 4.48 10*6/uL 4.2-5.4 [facility] Blood hemoglobin measurement (mass/volume)Ordered By: Ender Oates on 07-14-2022 Hemoglobin (Bld) [Mass/Vol] 14.1 g/dL 12.0-15.0 [facility] Blood platelet mean volumeOr dered By: Ender Oates on 07-14-2022 Platelet mean volume (Bld) [Entitic vol] 11.5 fL 6.2-12.0 [facility] Determination of erythrocyte mean corpuscular volume (MCV)Ordered By: Ender Oates on 07-14-2022 MCV (RBC) [Entitic vol] 102.2 fL 81-99 [facility] Hematocrit Auto (Bld) [Volum e fraction]Ordered By: Ender Oates on 07-14-2022 Hematocrit (Bld) [Volume fraction] 45.8 % 37-47 [facility] Laboratory - Chemistry and C hemistry - challengeOrdered By: Ender Oates on 07-14-2022 ALP [Catalytic activity/Vol] 84 U/L 45-117 [facility] ALT [Catalytic activity/Vol] 16 U/L 13-56 [facility] CO2 [Moles/Vol] 32.0 mmol/L 21.0-32.0 [facility] Globulin (S) [Mass/Vol] 3.9 g/dL 2.2-4.2 [facility] Urea nitrogen/Creatinine [Mass ratio] 38.6 mg/mg 10-20 [facility] Laboratory - Hematology and Cell countsOrdered By: Ender Oates on 07-14-2022 Erythrocyte distribution width (RBC) [Entitic vol] 54.3 fL 35.1-43.9 [facility] Erythrocyte distribution width (RBC) [Ratio] 14.5 % 11.6-14.6 [facility] MCH (RBC) [Entitic mass] 31.5 pg 27.0-32.0 [facility] MCHC Auto (RBC) [Mass/Vol]Or dered By: Ender Oates on 07-14-2022 MCHC (RBC) [Mass/Vol] 30.8 g/dL 32-36 [facility] No Panel InformationOrdered By: Ender Oates on 07-14-2022 Estimated GFR (MDRD) Amer 99 mL/min >60 [facility] Comment on above: GFR Calc Estimated GFR (MDRD) Non-Af Amer 82 mL/min >60 [facility] Comment on above: Non- GFR Calc Platelets bldOrdered By: Ronaldo Oates on 07-14-2022 Platelets (Bld) [#/Vol] 186 10*3/uL 150-450 [facility] Serum or plasma albumin tammie urement (mass/volume)Ordered By: Ender Oates on 07-14-2022 Albumin [Mass/Vol] 2.8 g/dL 3.2-5.0 [facility] Serum or plasma albumin/glob ulin mass ratioOrdered By: Ender Oates on 07-14-2022 Albumin/Globulin [Mass ratio] 0.7 {ratio} 0.9-2.4 [facility] Serum or plasma calcium tammie urement (mass/volume)Ordered By: Ender Oates on 07-14-2022 Calcium [Mass/Vol] 8.8 mg/dL 8.5-10.1 [facility] Serum or plasma creatinine m easurement (mass/volume)Ordered By: Ender Oates on 07-14-2022 Creatinine [Mass/Vol] 0.75 mg/dL 0.55-1.02 [facility] Comment on above: The validity of the calculated GFR & GFRAA in patients over 70 years has not been determined. Clinical correlation is essential. Serum or plasma urea nitroge n measurement (mass/volume)Ordered By: Ender Oates on 07-14-2022 Urea nitrogen [Mass/Vol] 29 mg/dL 7-18 [facility] Thin prep Papanicolaou smear with manual screeningOrdered By: Ender Oates on 07-14-2022 Thin prep Papanicolaou smear with manual screening 17 U/L 15-37 [facility] Thin prep Papanicolaou smear with manual screening 2 5-15 [facility] CT KNEE WO IVCON LTon 2022 CT KNEE WO IVCON LT * * *Final Report* * * DATE OF EXAM: Jun 12 2022 3:43PM [facility] [id number] - CT KNEE WO IVCON LT / PROCEDURE REASON: T84.84XA-Pain due to internal orthopedic prosthetic devices, implants and grafts * * * * Physician Interpretation * * * * PROCEDURE: CT KNEE WO IVCON LT INDICATION: Pain due to internal orthopedic prosthetic devices, implants and grafts, initial encounter (HCC) TECHNIQUE: Multiplanar reconstructed images of the left knee, utilizing [facility] CT Radiation dose: Integrated Dose-length product (DLP) [...] abnormality. IMPRESSION: Intact TKA. No acute abnormality. Surfboard Designer: PSCB Transcribe Date/Time: Jun 16 2022 8:28A Dictated by : DEJA LIU MD This examination was interpreted and the report reviewed and electronically signed by: DEJA LIU MD on Jun 16 2022 8:31AM EST [id number] Normal [facility] Basophil percentageOrdered B y: Ender Oates on 06-09-2022 Bilirubin [Mass/Vol] 0.40 mg/dL 0.20-1.00 [facility] Comment on above: For patients on eltr ombopag therapy, use of Dimension [place] TBIL is not recommended. Chloride [Moles/Vol] 106 mmol/L 98-107 [facility] Glucose [Mass/Vol] 90 mg/dL 74-106 [facility] Potassium [Moles/Vol] 4.1 mmol/L 3.5-5.1 [facility] Protein [Mass/Vol] 6.5 g/dL 6.4-8.2 [facility] Sodium [Moles/Vol] 143 mmol/L 136-145 [facility] WBC (Bld) [#/Vol] 6.4 10*3/uL 4.4-11.0 [facility] Blood erythrocytes count (nu mber/volume)Ordered By: Ender Oates on 06-09-2022 RBC (Bld) [#/Vol] 4.36 10*6/uL 4.2-5.4 [facility] Blood hemoglobin measurement (mass/volume)Ordered By: Ender Oates on 06-09-2022 Hemoglobin (Bld) [Mass/Vol] 14.4 g/dL 12.0-15.0 [facility] Blood platelet mean volumeOr dered By: Ender Oates on 06-09-2022 Platelet mean volume (Bld) [Entitic vol] 11.1 fL 6.2-12.0 [facility] Determination of erythrocyte mean corpuscular volume (MCV)Ordered By: Ender Oates on 06-09-2022 MCV (RBC) [Entitic vol] 102.3 fL 81-99 [facility] Hematocrit Auto (Bld) [Volum e fraction]Ordered By: Ender Oates on 06-09-2022 Hematocrit (Bld) [Volume fraction] 44.6 % 37-47 [facility] Laboratory - Chemistry and C hemistry - challengeOrdered By: Ender Oates on 06-09-2022 ALP [Catalytic activity/Vol] 67 U/L 45-117 [facility] ALT [Catalytic activity/Vol] 14 U/L 13-56 [facility] CO2 [Moles/Vol] 29.0 mmol/L 21.0-32.0 [facility] Globulin (S) [Mass/Vol] 3.7 g/dL 2.2-4.2 [facility] Urea nitrogen/Creatinine [Mass ratio] 31.0 mg/mg 10-20 [facility] Laboratory - Hematology and Cell countsOrdered By: Ender Oates on 06-09-2022 Erythrocyte distribution width (RBC) [Entitic vol] 56.1 fL 35.1-43.9 [facility] Erythrocyte distribution width (RBC) [Ratio] 14.9 % 11.6-14.6 [facility] MCH (RBC) [Entitic mass] 33.0 pg 27.0-32.0 [facility] MCHC Auto (RBC) [Mass/Vol]Or dered By: Ender Oates on 06-09-2022 MCHC (RBC) [Mass/Vol] 32.3 g/dL 32-36 [facility] No Panel InformationOrdered By: Ender Oates on 06-09-2022 Estimated GFR (MDRD) Amer 106 mL/min >60 [facility] Comment on above: GFR Calc Estimated GFR (MDRD) Non-Af Amer 88 mL/min >60 [facility] Comment on above: Non- GFR Calc Platelets bldOrdered By: Ronaldo Oates on 06-09-2022 Platelets (Bld) [#/Vol] 183 10*3/uL 150-450 [facility] Serum or plasma albumin tammie urement (mass/volume)Ordered By: Ender Oates on 06-09-2022 Albumin [Mass/Vol] 2.8 g/dL 3.2-5.0 [facility] Serum or plasma albumin/glob ulin mass ratioOrdered By: Ender Oates on 06-09-2022 Albumin/Globulin [Mass ratio] 0.8 {ratio} 0.9-2.4 [facility] Serum or plasma calcium tammie urement (mass/volume)Ordered By: Ender Oates on 06-09-2022 Calcium [Mass/Vol] 8.6 mg/dL 8.5-10.1 [facility] Serum or plasma creatinine m easurement (mass/volume)Ordered By: Ender Oates on 06-09-2022 Creatinine [Mass/Vol] 0.71 mg/dL 0.55-1.02 [facility] Comment on above: The validity of the calculated GFR & GFRAA in patients over 70 years has not been determined. Clinical correlation is essential. Serum or plasma urea nitroge n measurement (mass/volume)Ordered By: Ender Oates on 06-09-2022 Urea nitrogen [Mass/Vol] 22 mg/dL 7-18 [facility] Thin prep Papanicolaou smear with manual screeningOrdered By: Ender Oates on 06-09-2022 Thin prep Papanicolaou smear with manual screening 13 U/L 15-37 [facility] Thin prep Papanicolaou smear with manual screening 8 5-15 [facility] Basophil percentageOrdered B y: Ender Oates on 05-22-2022 WBC (Bld) [#/Vol] 7.6 10*3/uL 4.4-11.0 [facility] Blood erythrocytes count (nu mber/volume)Ordered By: Ender Oates on 05-22-2022 RBC (Bld) [#/Vol] 4.63 10*6/uL 4.2-5.4 [facility] Blood hemoglobin measurement (mass/volume)Ordered By: Ender Oates on 05-22-2022 Hemoglobin (Bld) [Mass/Vol] 14.7 g/dL 12.0-15.0 [facility] Blood platelet mean volumeOr dered By: Ender Oates on 05-22-2022 Platelet mean volume (Bld) [Entitic vol] 11.7 fL 6.2-12.0 [facility] Determination of erythrocyte mean corpuscular volume (MCV)Ordered By: Ender Oates on 05-22-2022 MCV (RBC) [Entitic vol] 102.8 fL 81-99 [facility] Erythrocyte sedimentation ra teOrdered By: Ender Oates on 05-22-2022 ESR (Bld) [Velocity] 7 mm/h 0-30 [facility] Hematocrit Auto (Bld) [Volum e fraction]Ordered By: Ender Oates on 05-22-2022 Hematocrit (Bld) [Volume fraction] 47.6 % 37-47 [facility] Laboratory - Hematology and Cell countsOrdered By: Ender Oates on 05-22-2022 Erythrocyte distribution width (RBC) [Entitic vol] 57.1 fL 35.1-43.9 [facility] Erythrocyte distribution width (RBC) [Ratio] 14.8 % 11.6-14.6 [facility] MCH (RBC) [Entitic mass] 31.7 pg 27.0-32.0 [facility] MCHC Auto (RBC) [Mass/Vol]Or dered By: Ender Oates on 05-22-2022 MCHC (RBC) [Mass/Vol] 30.9 g/dL 32-36 [facility] Platelets bldOrdered By: Ronaldo Oates on 05-22-2022 Platelets (Bld) [#/Vol] 179 10*3/uL 150-450 [facility] Serum or plasma C reactive p rotein measurement (mass/volume)Ordered By: Ender Oates on 05-22-2022 CRP [Mass/Vol] 4.40 mg/L 0.0-3.0 [facility] Comment on above: C-Reactive Protein ( CRP) provides useful information for thediagnosis, therapy and monitoring of inflammatory processesand associated diseases. For the evaluation of Relative Riskfor Cardiovascular Disease, a High Sensitivity CRP (HSCRP)should be ordered. XR KNEE POST OP 3V AP/LAT/ME RCHANT LEFTon 05-21-2022 [facility] XR Knee AP and Lateral and M erchantson 05-21-2022 IMPRESSION: Left total knee arthroplasty without complication on this single view. Surfboard Designer: DIAZ Transcribe Date/Time: May 21 2022 1:32P Dictated by : KATHY KING MD This examination was interpreted and the report reviewed and electronically signed by: ARABELLA ALVARADO MD on May 21 2022 2:24PM EST DIVISION OF RADIOLOGY * * *Final Report* [...] swelling, likely postoperative. DIVISION OF RADIOLOGY Provider, [facility] - 05/21/2022 * * *Final Report* [...] arthroplasty without complication on this single view. Surfboard Designer: PSCB Transcribe Date/Time: May 21 2022 1:32P Dictated by : KATHY KING MD This examination was interpreted and the report reviewed and electronically signed by: ARABELLA ALVARADO MD on May 21 2022 2:24PM EST [facility] Radiology Study observation (narrative) Isidro richards [facility] XR Knee AP and Lateral and M erchantsOrdered By: [facility] Provider on 05-21-2022 [facility] No Panel InformationOrdered By: Ender Oates on 05-15-2022 Vitamin D 25-Hydroxy 36.0 ng/mL [facility] Comment on above: Vitamin D 25(OH) Sta tus Range Deficiency <20 ng/mL (50nmol/L) Insufficiency 20 - 30 ng/mL (50 - 75 nmol/L) Sufficiency 30 - 100 ng/mL (75 - 250 nmol/L) Toxicity >100 ng/mL (>250 nmol/L) Basophil percentageOrdered B y: Ender Oates on 05-10-2022 Bilirubin [Mass/Vol] 0.40 mg/dL 0.20-1.00 [facility] Comment on above: For patients on eltr ombopag therapy, use of Dimension [place] TBIL is not recommended. Chloride [Moles/Vol] 107 mmol/L 98-107 [facility] Glucose [Mass/Vol] 96 mg/dL 74-106 [facility] Potassium [Moles/Vol] 3.9 mmol/L 3.5-5.1 [facility] Protein [Mass/Vol] 6.2 g/dL 6.4-8.2 [facility] Sodium [Moles/Vol] 142 mmol/L 136-145 [facility] WBC (Bld) [#/Vol] 4.3 10*3/uL 4.4-11.0 [facility] Blood erythrocytes count (nu mber/volume)Ordered By: Ender Oates on 05-10-2022 RBC (Bld) [#/Vol] 4.39 10*6/uL 4.2-5.4 [facility] Blood hemoglobin measurement (mass/volume)Ordered By: Ender Oates on 05-10-2022 Hemoglobin (Bld) [Mass/Vol] 14.3 g/dL 12.0-15.0 [facility] Blood platelet mean volumeOr dered By: Ender Oates on 05-10-2022 Platelet mean volume (Bld) [Entitic vol] 11.5 fL 6.2-12.0 [facility] Determination of erythrocyte mean corpuscular volume (MCV)Ordered By: Ender Oates on 05-10-2022 MCV (RBC) [Entitic vol] 99.8 fL 81-99 [facility] Hematocrit Auto (Bld) [Volum e fraction]Ordered By: Ender Oates on 05-10-2022 Hematocrit (Bld) [Volume fraction] 43.8 % 37-47 [facility] Laboratory - Chemistry and C hemistry - challengeOrdered By: Ender Oates on 05-10-2022 ALP [Catalytic activity/Vol] 73 U/L 45-117 [facility] ALT [Catalytic activity/Vol] 16 U/L 13-56 [facility] CO2 [Moles/Vol] 30.0 mmol/L 21.0-32.0 [facility] Globulin (S) [Mass/Vol] 3.2 g/dL 2.2-4.2 [facility] Urea nitrogen/Creatinine [Mass ratio] 29.5 mg/mg 10-20 [facility] Laboratory - Hematology and Cell countsOrdered By: Ender Oates on 05-10-2022 Erythrocyte distribution width (RBC) [Entitic vol] 53.1 fL 35.1-43.9 [facility] Erythrocyte distribution width (RBC) [Ratio] 14.5 % 11.6-14.6 [facility] MCH (RBC) [Entitic mass] 32.6 pg 27.0-32.0 [facility] MCHC Auto (RBC) [Mass/Vol]Or dered By: Ender Oates on 05-10-2022 MCHC (RBC) [Mass/Vol] 32.6 g/dL 32-36 [facility] No Panel InformationOrdered By: Ender Oates on 05-10-2022 Estimated GFR (MDRD) Amer 106 mL/min >60 [facility] Comment on above: GFR Calc Estimated GFR (MDRD) Non-Af Amer 87 mL/min >60 [facility] Comment on above: Non- GFR Calc Valproic Acid (Depakene) Level < 3 ug/mL 50-100 [facility] Platelets bldOrdered By: Ronaldo Oates on 05-10-2022 Platelets (Bld) [#/Vol] 147 10*3/uL 150-450 [facility] Serum or plasma albumin tammie urement (mass/volume)Ordered By: Ender Oates on 05-10-2022 Albumin [Mass/Vol] 3.0 g/dL 3.2-5.0 [facility] Serum or plasma albumin/glob ulin mass ratioOrdered By: Ender Oates on 05-10-2022 Albumin/Globulin [Mass ratio] 0.9 {ratio} 0.9-2.4 [facility] Serum or plasma calcium tammie urement (mass/volume)Ordered By: Ender Oates on 05-10-2022 Calcium [Mass/Vol] 8.4 mg/dL 8.5-10.1 [facility] Serum or plasma creatinine m easurement (mass/volume)Ordered By: Ender Oates on 05-10-2022 Creatinine [Mass/Vol] 0.71 mg/dL 0.55-1.02 [facility] Comment on above: The validity of the calculated GFR & GFRAA in patients over 70 years has not been determined. Clinical correlation is essential. Serum or plasma urea nitroge n measurement (mass/volume)Ordered By: Ender Oates on 05-10-2022 Urea nitrogen [Mass/Vol] 21 mg/dL 7-18 [facility] Thin prep Papanicolaou smear with manual screeningOrdered By: Ender Oates on 05-10-2022 Thin prep Papanicolaou smear with manual screening 18 U/L 15-37 [facility] Thin prep Papanicolaou smear with manual screening 5 5-15 [facility] No Panel InformationOrdered By: Chet Angel on 05-01-2022 Thyroid Stimulating Hormone (TSH) 3.11 uIU/mL 0.358-3.74 [facility] Basophil percentageOrdered B y: Ender Oates on 04-14-2022 Bilirubin [Mass/Vol] 0.30 mg/dL 0.20-1.00 [facility] Comment on above: For patients on eltr ombopag therapy, use of Dimension [place] TBIL is not recommended. Chloride [Moles/Vol] 106 mmol/L 98-107 [facility] Glucose [Mass/Vol] 85 mg/dL 74-106 [facility] Potassium [Moles/Vol] 4.2 mmol/L 3.5-5.1 [facility] Protein [Mass/Vol] 6.6 g/dL 6.4-8.2 [facility] Sodium [Moles/Vol] 141 mmol/L 136-145 [facility] WBC (Bld) [#/Vol] 7.8 10*3/uL 4.4-11.0 [facility] Blood erythrocytes count (nu mber/volume)Ordered By: Ender Oates on 04-14-2022 RBC (Bld) [#/Vol] 4.00 10*6/uL 4.2-5.4 [facility] Blood hemoglobin measurement (mass/volume)Ordered By: Ender Oates on 04-14-2022 Hemoglobin (Bld) [Mass/Vol] 12.8 g/dL 12.0-15.0 [facility] Blood platelet mean volumeOr dered By: Ender Oates on 04-14-2022 Platelet mean volume (Bld) [Entitic vol] 10.9 fL 6.2-12.0 [facility] [facility] Determination of erythrocyte mean corpuscular volume (MCV)Ordered By: Ender Oates on 04-14-2022 MCV (RBC) [Entitic vol] 99.5 fL 81-99 [facility] Hematocrit Auto (Bld) [Volum e fraction]Ordered By: Ender Oates on 04-14-2022 Hematocrit (Bld) [Volume fraction] 39.8 % 37-47 [facility] Laboratory - Chemistry and C hemistry - challengeOrdered By: Ender Oates on 04-14-2022 ALP [Catalytic activity/Vol] 75 U/L 45-117 [facility] ALT [Catalytic activity/Vol] 18 U/L 13-56 [facility] CO2 [Moles/Vol] 28.0 mmol/L 21.0-32.0 [facility] Globulin (S) [Mass/Vol] 3.9 g/dL 2.2-4.2 [facility] Urea nitrogen/Creatinine [Mass ratio] 36.9 mg/mg 10-20 [facility] Laboratory - Hematology and Cell countsOrdered By: Ender Oates on 04-14-2022 Erythrocyte distribution width (RBC) [Entitic vol] 52.8 fL 35.1-43.9 [facility] Erythrocyte distribution width (RBC) [Ratio] 14.4 % 11.6-14.6 [facility] MCH (RBC) [Entitic mass] 32.0 pg 27.0-32.0 [facility] MCHC Auto (RBC) [Mass/Vol]Or dered By: Ender Oates on 04-14-2022 MCHC (RBC) [Mass/Vol] 32.2 g/dL 32-36 [facility] No Panel InformationOrdered By: Ender Oates on 04-14-2022 Estimated GFR (MDRD) Amer 117 mL/min >60 [facility] Comment on above: GFR Calc Estimated GFR (MDRD) Non-Af Amer 97 mL/min >60 [facility] Comment on above: Non- GFR Calc Platelets bldOrdered By: Ronaldo Oates on 04-14-2022 Platelets (Bld) [#/Vol] 162 10*3/uL 150-450 [facility] Serum or plasma albumin tammie urement (mass/volume)Ordered By: Ender Oates on 04-14-2022 Albumin [Mass/Vol] 2.7 g/dL 3.2-5.0 [facility] Serum or plasma albumin/glob ulin mass ratioOrdered By: Ender Oates on 04-14-2022 Albumin/Globulin [Mass ratio] 0.7 {ratio} 0.9-2.4 [facility] Serum or plasma calcium tammie urement (mass/volume)Ordered By: Ender Oates on 04-14-2022 Calcium [Mass/Vol] 8.2 mg/dL 8.5-10.1 [facility] Serum or plasma creatinine m easurement (mass/volume)Ordered By: Ender Oates on 04-14-2022 Creatinine [Mass/Vol] 0.65 mg/dL 0.55-1.02 [facility] Comment on above: The validity of the calculated GFR & GFRAA in patients over 70 years has not been determined. Clinical correlation is essential. Serum or plasma urea nitroge n measurement (mass/volume)Ordered By: Ender Oates on 04-14-2022 Urea nitrogen [Mass/Vol] 24 mg/dL 7-18 [facility] Thin prep Papanicolaou smear with manual screeningOrdered By: Ender Oates on 04-14-2022 Thin prep Papanicolaou smear with manual screening 18 U/L 15-37 [facility] Thin prep Papanicolaou smear with manual screening 7 5-15 [facility] Basophil percentageOrdered B y: Ender Oates on 03-10-2022 Bilirubin [Mass/Vol] 0.40 mg/dL 0.20-1.00 [facility] Comment on above: For patients on eltr ombopag therapy, use of Dimension [place] TBIL is not recommended. Chloride [Moles/Vol] 109 mmol/L 98-107 [facility] Glucose [Mass/Vol] 83 mg/dL 74-106 [facility] Potassium [Moles/Vol] 4.2 mmol/L 3.5-5.1 [facility] Protein [Mass/Vol] 6.9 g/dL 6.4-8.2 [facility] Sodium [Moles/Vol] 143 mmol/L 136-145 [facility] WBC (Bld) [#/Vol] 7.6 10*3/uL 4.4-11.0 [facility] Blood erythrocytes count (nu mber/volume)Ordered By: Ender Oates on 03-10-2022 RBC (Bld) [#/Vol] 4.43 10*6/uL 4.2-5.4 [facility] Blood hemoglobin measurement (mass/volume)Ordered By: Ender Oates on 03-10-2022 Hemoglobin (Bld) [Mass/Vol] 14.2 g/dL 12.0-15.0 [facility] Blood platelet mean volumeOr dered By: Ender Oates on 03-10-2022 Platelet mean volume (Bld) [Entitic vol] 11.6 fL 6.2-12.0 [facility] Determination of erythrocyte mean corpuscular volume (MCV)Ordered By: Ender Oates on 03-10-2022 MCV (RBC) [Entitic vol] 98.4 fL 81-99 [facility] Hematocrit Auto (Bld) [Volum e fraction]Ordered By: Ender Oates on 03-10-2022 Hematocrit (Bld) [Volume fraction] 43.6 % 37-47 [facility] Laboratory - Chemistry and C hemistry - challengeOrdered By: Ender Oates on 03-10-2022 ALP [Catalytic activity/Vol] 67 U/L 45-117 [facility] ALT [Catalytic activity/Vol] 20 U/L 13-56 [facility] CO2 [Moles/Vol] 27.0 mmol/L 21.0-32.0 [facility] Globulin (S) [Mass/Vol] 3.9 g/dL 2.2-4.2 [facility] Urea nitrogen/Creatinine [Mass ratio] 39.6 mg/mg 10-20 [facility] Laboratory - Hematology and Cell countsOrdered By: Ender Oates on 03-10-2022 Erythrocyte distribution width (RBC) [Entitic vol] 50.4 fL 35.1-43.9 [facility] Erythrocyte distribution width (RBC) [Ratio] 13.8 % 11.6-14.6 [facility] MCH (RBC) [Entitic mass] 32.1 pg 27.0-32.0 [facility] MCHC Auto (RBC) [Mass/Vol]Or dered By: Ender Oates on 03-10-2022 MCHC (RBC) [Mass/Vol] 32.6 g/dL 32-36 [facility] No Panel InformationOrdered By: Ender Oates on 03-10-2022 Estimated GFR (MDRD) Amer 127 mL/min >60 [facility] Comment on above: GFR Calc Estimated GFR (MDRD) Non-Af Amer 105 mL/min >60 [facility] Comment on above: Non- GFR Calc Platelets bldOrdered By: Ronaldo Oates on 03-10-2022 Platelets (Bld) [#/Vol] 163 10*3/uL 150-450 [facility] Serum or plasma albumin tammie urement (mass/volume)Ordered By: Ender Oates on 03-10-2022 Albumin [Mass/Vol] 3.0 g/dL 3.2-5.0 [facility] Serum or plasma albumin/glob ulin mass ratioOrdered By: Ender Oates on 03-10-2022 Albumin/Globulin [Mass ratio] 0.8 {ratio} 0.9-2.4 [facility] Serum or plasma calcium tammie urement (mass/volume)Ordered By: Ender Oates on 03-10-2022 Calcium [Mass/Vol] 9.0 mg/dL 8.5-10.1 [facility] Serum or plasma creatinine m easurement (mass/volume)Ordered By: Ender Oates on 03-10-2022 Creatinine [Mass/Vol] 0.61 mg/dL 0.55-1.02 [facility] Comment on above: The validity of the calculated GFR & GFRAA in patients over 70 years has not been determined. Clinical correlation is essential. Serum or plasma urea nitroge n measurement (mass/volume)Ordered By: Ender Oates on 03-10-2022 Urea nitrogen [Mass/Vol] 24 mg/dL 7-18 [facility] Thin prep Papanicolaou smear with manual screeningOrdered By: Ender Oates on 03-10-2022 Thin prep Papanicolaou smear with manual screening 15 U/L 15-37 [facility] Thin prep Papanicolaou smear with manual screening 7 5-15 [facility] Basophil percentageon 2021 Bilirubin [Mass/Vol] 0.30 mg/dL 0.20-1.00 [facility] Work Phone: Comment on above: For patients on eltr ombopag therapy, use of Dimension [place] TBIL is not recommended. Chloride [Moles/Vol] 105 mmol/L 98-107 [facility] Work Phone: Cholesterol [Mass/Vol] 114 mg/dL <200 [facility] Work Phone: Comment on above: <200 mg/dL Desirable 200-240 mg/dL Borderline >240 mg/dL High Risk Glucose [Mass/Vol] 79 mg/dL 74-106 [facility] Work Phone: Potassium [Moles/Vol] 4.1 mmol/L 3.5-5.1 [facility] Work Phone: Protein [Mass/Vol] 6.7 g/dL 6.4-8.2 [facility] Work Phone: Sodium [Moles/Vol] 139 mmol/L 136-145 [facility] Work Phone: [phone] Triglyceride [Mass/Vol] 94 mg/dL <199 [facility] Work Phone: [phone] Comment on above: The drugs N-Acetylcy steine and Metamizole may falsely depress this assay.Serum Triglycerides Reference Interval Normal <150 mg/dL Borderline high 150 - 199 mg/dL High 200 - 499 mg/dL Very High > or = 500 mg/dL WBC (Bld) [#/Vol] 7.5 10*3/uL 4.4-11.0 [facility] Work Phone: [phone] Blood erythrocytes count (nu mber/volume)on 02-10-2022 RBC (Bld) [#/Vol] 4.45 10*6/uL 4.2-5.4 [facility] Work Phone: [phone] Blood hemoglobin measurement (mass/volume)on 02-10-2022 Hemoglobin (Bld) [Mass/Vol] 14.7 g/dL 12.0-15.0 [facility] Work Phone: [phone] Blood platelet mean volumeon 02-10-2022 Platelet mean volume (Bld) [Entitic vol] 10.7 fL 6.2-12.0 [facility] Work Phone: [phone] Determination of erythrocyte mean corpuscular volume (MCV)on 02-10-2022 MCV (RBC) [Entitic vol] 100.2 fL 81-99 [facility] Work Phone: [phone] Hematocrit Auto (Bld) [Volum e fraction]on 02-10-2022 Hematocrit (Bld) [Volume fraction] 44.6 % 37-47 [facility] Work Phone: [phone] Laboratory - Chemistry and C hemistry - challengeon 02-10-2022 ALP [Catalytic activity/Vol] 58 U/L 45-117 [facility] Work Phone: [phone] ALT [Catalytic activity/Vol] 18 U/L 13-56 [facility] Work Phone: [phone] CO2 [Moles/Vol] 29.0 mmol/L 21.0-32.0 [facility] Work Phone: [phone] Globulin (S) [Mass/Vol] 3.9 g/dL 2.2-4.2 [facility] Work Phone: [phone] Urea nitrogen/Creatinine [Mass ratio] 40.5 mg/mg 10-20 [facility] Work Phone: [phone] Laboratory - Hematology and Cell countson 02-10-2022 Erythrocyte distribution width (RBC) [Entitic vol] 51.3 fL 35.1-43.9 [facility] Work Phone: [phone] Erythrocyte distribution width (RBC) [Ratio] 13.9 % 11.6-14.6 [facility] Work Phone: [phone] MCH (RBC) [Entitic mass] 33.0 pg 27.0-32.0 [facility] Work Phone: [phone] MCHC Auto (RBC) [Mass/Vol]on 02-10-2022 MCHC (RBC) [Mass/Vol] 33.0 g/dL 32-36 [facility] Work Phone: No Panel Informationon 02-10 Estimated GFR (MDRD) Amer 137 mL/min >60 [facility] Work Phone: [phone] Comment on above: GFR Calc Estimated GFR (MDRD) Non-Af Amer 113 mL/min >60 [facility] Work Phone: [phone] Comment on above: Non- GFR Calc Valproic Acid (Depakene) Level 34 ug/mL 50-100 [facility] Work Phone: Platelets bldon 02-10-2022 Platelets (Bld) [#/Vol] 169 10*3/uL 150-450 [facility] Work Phone: [phone] Serum or plasma albumin tammie urement (mass/volume)on 02-10-2022 Albumin [Mass/Vol] 2.8 g/dL 3.2-5.0 [facility] Work Phone: [phone] Serum or plasma albumin/glob ulin mass ratioon 02-10-2022 Albumin/Globulin [Mass ratio] 0.7 {ratio} 0.9-2.4 [facility] Work Phone: Serum or plasma calcium tammie urement (mass/volume)on 02-10-2022 Calcium [Mass/Vol] 8.4 mg/dL 8.5-10.1 [facility] Work Phone: Serum or plasma cholesterol in HDL measurement (mass/volume)on 02-10-2022 Cholesterol in HDL [Mass/Vol] 50 mg/dL >40 [facility] Work Phone: Comment on above: The drugs N-Acetylcy steine and Metamizole may falsely depress this assay. Reference Range HDL <40 mg/dL Low HDL Cholesterol HDL >or= 60 mg/dL High HDL Cholesterol Serum or plasma cholesterol in VLDL measurement (mass/volume)on 02-10-2022 Cholesterol in VLDL [Mass/Vol] 19 mg/dL 5-40 [facility] Work Phone: [phone] Serum or plasma creatinine m easurement (mass/volume)on 02-10-2022 Creatinine [Mass/Vol] 0.57 mg/dL 0.55-1.02 [facility] Work Phone: Comment on above: The validity of the calculated GFR & GFRAA in patients over 70 years has not been determined. Clinical correlation is essential. Serum or plasma low density lipoprotein (LDL) cholesterol measurement (mass/volume)on 02-10-2022 Cholesterol in LDL [Mass/Vol] 45 mg/dL 0-130 [facility] Work Phone: [phone] Serum or plasma urea nitroge n measurement (mass/volume)on 02-10-2022 Urea nitrogen [Mass/Vol] 23 mg/dL 7-18 [facility] Work Phone: [phone] Thin prep Papanicolaou smear with manual screeningon 02-10-2022 Thin prep Papanicolaou smear with manual screening 15 U/L 15-37 [facility] Work Phone: [phone] Thin prep Papanicolaou smear with manual screening 5 5-15 [facility] Work Phone: Basophil percentageon 2021 Bilirubin [Mass/Vol] 0.50 mg/dL 0.20-1.00 [facility] Work Phone: [phone] Comment on above: For patients on eltr ombopag therapy, use of Dimension [place] TBIL is not recommended. Chloride [Moles/Vol] 105 mmol/L 98-107 [facility] Work Phone: [phone] Glucose [Mass/Vol] 83 mg/dL 74-106 [facility] Work Phone: [phone] Potassium [Moles/Vol] 3.9 mmol/L 3.5-5.1 [facility] Work Phone: [phone] Protein [Mass/Vol] 6.5 g/dL 6.4-8.2 [facility] Work Phone: [phone] Sodium [Moles/Vol] 140 mmol/L 136-145 [facility] Work Phone: [phone] WBC (Bld) [#/Vol] 7.1 10*3/uL 4.4-11.0 [facility] Work Phone: [phone] Blood erythrocytes count (nu mber/volume)on 01-06-2022 RBC (Bld) [#/Vol] 4.36 10*6/uL 4.2-5.4 [facility] Work Phone: [phone] Blood hemoglobin measurement (mass/volume)on 01-06-2022 Hemoglobin (Bld) [Mass/Vol] 14.0 g/dL 12.0-15.0 [facility] Work Phone: [phone] Blood platelet mean volumeon 01-06-2022 Platelet mean volume (Bld) [Entitic vol] 11.0 fL 6.2-12.0 [facility] Work Phone: [phone] Determination of erythrocyte mean corpuscular volume (MCV)on 01-06-2022 MCV (RBC) [Entitic vol] 99.5 fL 81-99 [facility] Work Phone: [phone] Hematocrit Auto (Bld) [Volum e fraction]on 01-06-2022 Hematocrit (Bld) [Volume fraction] 43.4 % 37-47 [facility] Work Phone: Laboratory - Chemistry and C hemistry - challengeon 01-06-2022 ALP [Catalytic activity/Vol] 61 U/L 45-117 [facility] Work Phone: ALT [Catalytic activity/Vol] 18 U/L 13-56 [facility] Work Phone: [phone] CO2 [Moles/Vol] 34.0 mmol/L 21.0-32.0 [facility] Work Phone: [phone] Globulin (S) [Mass/Vol] 3.8 g/dL 2.2-4.2 [facility] Work Phone: Urea nitrogen/Creatinine [Mass ratio] 37.6 mg/mg 10-20 [facility] Work Phone: Laboratory - Hematology and Cell countson 01-06-2022 Erythrocyte distribution width (RBC) [Entitic vol] 54.3 fL 35.1-43.9 [facility] Work Phone: [phone] Erythrocyte distribution width (RBC) [Ratio] 14.6 % 11.6-14.6 [facility] Work Phone: MCH (RBC) [Entitic mass] 32.1 pg 27.0-32.0 [facility] Work Phone: MCHC Auto (RBC) [Mass/Vol]on 01-06-2022 MCHC (RBC) [Mass/Vol] 32.3 g/dL 32-36 [facility] Work Phone: No Panel Informationon 01-06 Estimated GFR (MDRD) Amer 133 mL/min >60 [facility] Work Phone: Comment on above: GFR Calc Estimated GFR (MDRD) Non-Af Amer 110 mL/min >60 [facility] Work Phone: Comment on above: Non- GFR Calc Platelets bldon 01-06-2022 Platelets (Bld) [#/Vol] 169 10*3/uL 150-450 [facility] Work Phone: [phone] Serum or plasma albumin tammie urement (mass/volume)on 01-06-2022 Albumin [Mass/Vol] 2.7 g/dL 3.2-5.0 [facility] Work Phone: [phone] Serum or plasma albumin/glob ulin mass ratioon 01-06-2022 Albumin/Globulin [Mass ratio] 0.7 {ratio} 0.9-2.4 [facility] Work Phone: [phone] Serum or plasma calcium tammie urement (mass/volume)on 01-06-2022 Calcium [Mass/Vol] 8.3 mg/dL 8.5-10.1 [facility] Work Phone: [phone] Serum or plasma creatinine m easurement (mass/volume)on 01-06-2022 Creatinine [Mass/Vol] 0.58 mg/dL 0.55-1.02 [facility] Work Phone: Comment on above: The validity of the calculated GFR & GFRAA in patients over 70 years has not been determined. Clinical correlation is essential. Serum or plasma urea nitroge n measurement (mass/volume)on 01-06-2022 Urea nitrogen [Mass/Vol] 22 mg/dL 7-18 [facility] Work Phone: [phone] Thin prep Papanicolaou smear with manual screeningon 01-06-2022 Thin prep Papanicolaou smear with manual screening 16 U/L 15-37 [facility] Work Phone: [phone] Thin prep Papanicolaou smear with manual screening 1 5-15 [facility] Work Phone: Basophil percentageon 2021 Cholesterol [Mass/Vol] 141 mg/dL <200 [facility] Work Phone: Comment on above: <200 mg/dL Desirable 200-240 mg/dL Borderline >240 mg/dL High Risk Triglyceride [Mass/Vol] 171 mg/dL <199 [facility] Work Phone: Comment on above: The drugs N-Acetylcy steine and Metamizole may falsely depress this assay.Serum Triglycerides Reference Interval Normal <150 mg/dL Borderline high 150 - 199 mg/dL High 200 - 499 mg/dL Very High > or = 500 mg/dL Serum or plasma cholesterol in HDL measurement (mass/volume)on 12-27-2021 Cholesterol in HDL [Mass/Vol] 47 mg/dL >40 [facility] Work Phone: Comment on above: The drugs N-Acetylcy steine and Metamizole may falsely depress this assay. Reference Range HDL <40 mg/dL Low HDL Cholesterol HDL >or= 60 mg/dL High HDL Cholesterol Serum or plasma cholesterol in VLDL measurement (mass/volume)on 12-27-2021 Cholesterol in VLDL [Mass/Vol] 34 mg/dL 5-40 [facility] Work Phone: [phone] Serum or plasma low density lipoprotein (LDL) cholesterol measurement (mass/volume)on 12-27-2021 Cholesterol in LDL [Mass/Vol] 60 mg/dL 0-130 [facility] Work Phone: Basophil percentageon 2021 Bilirubin [Mass/Vol] 0.30 mg/dL 0.20-1.00 [facility] Work Phone: Comment on above: For patients on eltr ombopag therapy, use of Dimension [place] TBIL is not recommended. Chloride [Moles/Vol] 101 mmol/L 98-107 [facility] Work Phone: [phone] Glucose [Mass/Vol] 74 mg/dL 74-106 [facility] Work Phone: [phone] Potassium [Moles/Vol] 4.6 mmol/L 3.5-5.1 [facility] Work Phone: [phone] Protein [Mass/Vol] 7.9 g/dL 6.4-8.2 [facility] Work Phone: [phone] Sodium [Moles/Vol] 139 mmol/L 136-145 [facility] Work Phone: [phone] WBC (Bld) [#/Vol] 7.5 10*3/uL 4.4-11.0 [facility] Work Phone: Blood erythrocytes count (nu mber/volume)on 12-09-2021 RBC (Bld) [#/Vol] 4.80 10*6/uL 4.2-5.4 [facility] Work Phone: [phone] Blood hemoglobin measurement (mass/volume)on 12-09-2021 Hemoglobin (Bld) [Mass/Vol] 15.4 g/dL 12.0-15.0 [facility] Work Phone: [phone] Blood platelet mean volumeon 12-09-2021 Platelet mean volume (Bld) [Entitic vol] 11.3 fL 6.2-12.0 [facility] Work Phone: Determination of erythrocyte mean corpuscular volume (MCV)on 12-09-2021 MCV (RBC) [Entitic vol] 103.1 fL 81-99 [facility] Work Phone: [phone] Hematocrit Auto (Bld) [Volum e fraction]on 12-09-2021 Hematocrit (Bld) [Volume fraction] 49.5 % 37-47 [facility] Work Phone: Laboratory - Chemistry and C hemistry - challengeon 12-09-2021 ALP [Catalytic activity/Vol] 76 U/L 45-117 [facility] Work Phone: [phone] ALT [Catalytic activity/Vol] 21 U/L 13-56 [facility] Work Phone: [phone] CO2 [Moles/Vol] 28.0 mmol/L 21.0-32.0 [facility] Work Phone: [phone] Globulin (S) [Mass/Vol] 4.5 g/dL 2.2-4.2 [facility] Work Phone: [phone] Urea nitrogen/Creatinine [Mass ratio] 36.1 mg/mg 10-20 [facility] Work Phone: [phone] Laboratory - Hematology and Cell countson 12-09-2021 Erythrocyte distribution width (RBC) [Entitic vol] 57.3 fL 35.1-43.9 [facility] Work Phone: [phone] Erythrocyte distribution width (RBC) [Ratio] 14.9 % 11.6-14.6 [facility] Work Phone: MCH (RBC) [Entitic mass] 32.1 pg 27.0-32.0 [facility] Work Phone: [phone] MCHC Auto (RBC) [Mass/Vol]on 12-09-2021 MCHC (RBC) [Mass/Vol] 31.1 g/dL 32-36 [facility] Work Phone: No Panel Informationon 12-09 Estimated GFR (MDRD) Amer 109 mL/min >60 [facility] Work Phone: Comment on above: GFR Calc Estimated GFR (MDRD) Non-Af Amer 90 mL/min >60 [facility] Work Phone: Comment on above: Non- GFR Calc Platelets bldon 12-09-2021 Platelets (Bld) [#/Vol] 189 10*3/uL 150-450 [facility] Work Phone: Serum or plasma albumin tammie urement (mass/volume)on 12-09-2021 Albumin [Mass/Vol] 3.4 g/dL 3.2-5.0 [facility] Work Phone: [phone] Serum or plasma albumin/glob ulin mass ratioon 12-09-2021 Albumin/Globulin [Mass ratio] 0.8 {ratio} 0.9-2.4 [facility] Work Phone: [phone] Serum or plasma calcium tammie urement (mass/volume)on 12-09-2021 Calcium [Mass/Vol] 9.4 mg/dL 8.5-10.1 [facility] Work Phone: [phone] Serum or plasma creatinine m easurement (mass/volume)on 12-09-2021 Creatinine [Mass/Vol] 0.69 mg/dL 0.55-1.02 [facility] Work Phone: Comment on above: The validity of the calculated GFR & GFRAA in patients over 70 years has not been determined. Clinical correlation is essential. Serum or plasma urea nitroge n measurement (mass/volume)on 12-09-2021 Urea nitrogen [Mass/Vol] 25 mg/dL 7-18 [facility] Work Phone: Thin prep Papanicolaou smear with manual screeningon 12-09-2021 Thin prep Papanicolaou smear with manual screening 25 U/L 15-37 [facility] Work Phone: [phone] Thin prep Papanicolaou smear with manual screening 10 5-15 [facility] Work Phone: Basophil percentageon 2021 Bilirubin [Mass/Vol] 0.40 mg/dL 0.20-1.00 [facility] Work Phone: Comment on above: For patients on eltr ombopag therapy, use of Dimension [place] TBIL is not recommended. Chloride [Moles/Vol] 104 mmol/L 98-107 [facility] Work Phone: Glucose [Mass/Vol] 71 mg/dL 74-106 [facility] Work Phone: Potassium [Moles/Vol] 4.0 mmol/L 3.5-5.1 [facility] Work Phone: Protein [Mass/Vol] 6.7 g/dL 6.4-8.2 [facility] Work Phone: Sodium [Moles/Vol] 137 mmol/L 136-145 [facility] Work Phone: WBC (Bld) [#/Vol] 6.7 10*3/uL 4.4-11.0 [facility] Work Phone: Blood erythrocytes count (nu mber/volume)on 11-11-2021 RBC (Bld) [#/Vol] 4.37 10*6/uL 4.2-5.4 [facility] Work Phone: Blood hemoglobin measurement (mass/volume)on 11-11-2021 Hemoglobin (Bld) [Mass/Vol] 14.1 g/dL 12.0-15.0 [facility] Work Phone: Blood platelet mean volumeon 11-11-2021 Platelet mean volume (Bld) [Entitic vol] 10.9 fL 6.2-12.0 [facility] Work Phone: [phone] Determination of erythrocyte mean corpuscular volume (MCV)on 11-11-2021 MCV (RBC) [Entitic vol] 98.2 fL 81-99 [facility] Work Phone: [phone] Hematocrit Auto (Bld) [Volum e fraction]on 11-11-2021 Hematocrit (Bld) [Volume fraction] 42.9 % 37-47 [facility] Work Phone: [phone] Laboratory - Chemistry and C hemistry - challengeon 11-11-2021 ALP [Catalytic activity/Vol] 60 U/L 45-117 [facility] Work Phone: [phone] ALT [Catalytic activity/Vol] 25 U/L 13-56 [facility] Work Phone: [phone] CO2 [Moles/Vol] 28.0 mmol/L 21.0-32.0 [facility] Work Phone: [phone] Globulin (S) [Mass/Vol] 3.9 g/dL 2.2-4.2 [facility] Work Phone: [phone] Urea nitrogen/Creatinine [Mass ratio] 43.8 mg/mg 10-20 [facility] Work Phone: [phone] Laboratory - Hematology and Cell countson 11-11-2021 Erythrocyte distribution width (RBC) [Entitic vol] 52.9 fL 35.1-43.9 [facility] Work Phone: [phone] Erythrocyte distribution width (RBC) [Ratio] 14.7 % 11.6-14.6 [facility] Work Phone: [phone] MCH (RBC) [Entitic mass] 32.3 pg 27.0-32.0 [facility] Work Phone: [phone] MCHC Auto (RBC) [Mass/Vol]on 11-11-2021 MCHC (RBC) [Mass/Vol] 32.9 g/dL 32-36 [facility] Work Phone: No Panel Informationon 11-11 Estimated GFR (MDRD) Amer 125 mL/min >60 [facility] Work Phone: Comment on above: GFR Calc Estimated GFR (MDRD) Non-Af Amer 103 mL/min >60 [facility] Work Phone: Comment on above: Non- GFR Calc Platelets bldon 11-11-2021 Platelets (Bld) [#/Vol] 189 10*3/uL 150-450 [facility] Work Phone: [phone] Serum or plasma albumin tammie urement (mass/volume)on 11-11-2021 Albumin [Mass/Vol] 2.8 g/dL 3.2-5.0 [facility] Work Phone: [phone] Serum or plasma albumin/glob ulin mass ratioon 11-11-2021 Albumin/Globulin [Mass ratio] 0.7 {ratio} 0.9-2.4 [facility] Work Phone: [phone] Serum or plasma calcium tammie urement (mass/volume)on 11-11-2021 Calcium [Mass/Vol] 8.5 mg/dL 8.5-10.1 [facility] Work Phone: [phone] Serum or plasma creatinine m easurement (mass/volume)on 11-11-2021 Creatinine [Mass/Vol] 0.62 mg/dL 0.55-1.02 [facility] Work Phone: Comment on above: The validity of the calculated GFR & GFRAA in patients over 70 years has not been determined. Clinical correlation is essential. Serum or plasma urea nitroge n measurement (mass/volume)on 11-11-2021 Urea nitrogen [Mass/Vol] 27 mg/dL 7-18 [facility] Work Phone: [phone] Thin prep Papanicolaou smear with manual screeningon 11-11-2021 Thin prep Papanicolaou smear with manual screening 26 U/L 15-37 [facility] Work Phone: [phone] Thin prep Papanicolaou smear with manual screening 5 5-15 [facility] Work Phone: No Panel Informationon 11-08 Valproic Acid (Depakene) Level 30 ug/mL 50-100 [facility] Work Phone: Basophil percentageon 2021 Bilirubin [Mass/Vol] 0.40 mg/dL 0.20-1.00 [facility] Work Phone: [phone] Comment on above: For patients on eltr ombopag therapy, use of Dimension [place] TBIL is not recommended. Chloride [Moles/Vol] 108 mmol/L 98-107 [facility] Work Phone: [phone] Glucose [Mass/Vol] 100 mg/dL 74-106 [facility] Work Phone: [phone] Comment on above: Fasting Glucose resu lt from 100 to 125 mg/dL suggests IMPAIRED HOMEOSTASIS per A.D.A. criteria. Potassium [Moles/Vol] 4.4 mmol/L 3.5-5.1 [facility] Work Phone: [phone] Protein [Mass/Vol] 7.9 g/dL 6.4-8.2 [facility] Work Phone: [phone] Sodium [Moles/Vol] 139 mmol/L 136-145 [facility] Work Phone: [phone] WBC (Bld) [#/Vol] 9.3 10*3/uL 4.4-11.0 [facility] Work Phone: [phone] Blood erythrocytes count (nu mber/volume)on 10-07-2021 RBC (Bld) [#/Vol] 4.96 10*6/uL 4.2-5.4 [facility] Work Phone: [phone] Blood hemoglobin measurement (mass/volume)on 10-07-2021 Hemoglobin (Bld) [Mass/Vol] 15.5 g/dL 12.0-15.0 [facility] Work Phone: [phone] Blood platelet mean volumeon 10-07-2021 Platelet mean volume (Bld) [Entitic vol] 11.6 fL 6.2-12.0 [facility] Work Phone: [phone] Determination of erythrocyte mean corpuscular volume (MCV)on 10-07-2021 MCV (RBC) [Entitic vol] 99.6 fL 81-99 [facility] Work Phone: [phone] Hematocrit Auto (Bld) [Volum e fraction]on 10-07-2021 Hematocrit (Bld) [Volume fraction] 49.4 % 37-47 [facility] Work Phone: [phone] Laboratory - Chemistry and C hemistry - challengeon 10-07-2021 ALP [Catalytic activity/Vol] 74 U/L 45-117 [facility] Work Phone: [phone] ALT [Catalytic activity/Vol] 17 U/L 13-56 [facility] Work Phone: [phone] CO2 [Moles/Vol] 27.0 mmol/L 21.0-32.0 [facility] Work Phone: [phone] Globulin (S) [Mass/Vol] 4.7 g/dL 2.2-4.2 [facility] Work Phone: [phone] Urea nitrogen/Creatinine [Mass ratio] 43.1 mg/mg 10-20 [facility] Work Phone: [phone] Laboratory - Hematology and Cell countson 10-07-2021 Erythrocyte distribution width (RBC) [Entitic vol] 52.7 fL 35.1-43.9 [facility] Work Phone: [phone] Erythrocyte distribution width (RBC) [Ratio] 14.4 % 11.6-14.6 [facility] Work Phone: [phone] MCH (RBC) [Entitic mass] 31.3 pg 27.0-32.0 [facility] Work Phone: [phone] MCHC Auto (RBC) [Mass/Vol]on 10-07-2021 MCHC (RBC) [Mass/Vol] 31.4 g/dL 32-36 [facility] Work Phone: [phone] No Panel Informationon 10-07 Estimated GFR (MDRD) Amer 101 mL/min >60 [facility] Work Phone: [phone] Comment on above: GFR Calc Estimated GFR (MDRD) Non-Af Amer 83 mL/min >60 [facility] Work Phone: Comment on above: Non- GFR Calc Platelets bldon 10-07-2021 Platelets (Bld) [#/Vol] 220 10*3/uL 150-450 [facility] Work Phone: Serum or plasma albumin tammie urement (mass/volume)on 10-07-2021 Albumin [Mass/Vol] 3.2 g/dL 3.2-5.0 [facility] Work Phone: [phone] Serum or plasma albumin/glob ulin mass ratioon 10-07-2021 Albumin/Globulin [Mass ratio] 0.7 {ratio} 0.9-2.4 [facility] Work Phone: Serum or plasma calcium tammie urement (mass/volume)on 10-07-2021 Calcium [Mass/Vol] 9.0 mg/dL 8.5-10.1 [facility] Work Phone: Serum or plasma creatinine m easurement (mass/volume)on 10-07-2021 Creatinine [Mass/Vol] 0.74 mg/dL 0.55-1.02 [facility] Work Phone: Comment on above: The validity of the calculated GFR & GFRAA in patients over 70 years has not been determined. Clinical correlation is essential. Serum or plasma urea nitroge n measurement (mass/volume)on 10-07-2021 Urea nitrogen [Mass/Vol] 32 mg/dL 7-18 [facility] Work Phone: [phone] Thin prep Papanicolaou smear with manual screeningon 10-07-2021 Thin prep Papanicolaou smear with manual screening 16 U/L 15-37 [facility] Work Phone: Thin prep Papanicolaou smear with manual screening 4 5-15 [facility] Work Phone: Basophil percentageon 2021 Bilirubin [Mass/Vol] 0.50 mg/dL 0.20-1.00 [facility] Work Phone: Comment on above: For patients on eltr ombopag therapy, use of Dimension [place] TBIL is not recommended. Chloride [Moles/Vol] 103 mmol/L 98-107 [facility] Work Phone: [phone] Glucose [Mass/Vol] 93 mg/dL 74-106 [facility] Work Phone: [phone] Potassium [Moles/Vol] 4.4 mmol/L 3.5-5.1 [facility] Work Phone: [phone] Comment on above: Slight Hemolysis, Re sult may be falsely increased. Protein [Mass/Vol] 7.7 g/dL 6.4-8.2 [facility] Work Phone: [phone] Sodium [Moles/Vol] 137 mmol/L 136-145 [facility] Work Phone: [phone] WBC (Bld) [#/Vol] 8.4 10*3/uL 4.4-11.0 [facility] Work Phone: [phone] Blood erythrocytes count (nu mber/volume)on 09-09-2021 RBC (Bld) [#/Vol] 4.68 10*6/uL 4.2-5.4 [facility] Work Phone: [phone] Blood hemoglobin measurement (mass/volume)on 09-09-2021 Hemoglobin (Bld) [Mass/Vol] 14.4 g/dL 12.0-15.0 [facility] Work Phone: [phone] Blood platelet mean volumeon 09-09-2021 Platelet mean volume (Bld) [Entitic vol] 11.3 fL 6.2-12.0 [facility] Work Phone: [phone] Determination of erythrocyte mean corpuscular volume (MCV)on 09-09-2021 MCV (RBC) [Entitic vol] 96.6 fL 81-99 [facility] Work Phone: [phone] Hematocrit Auto (Bld) [Volum e fraction]on 09-09-2021 Hematocrit (Bld) [Volume fraction] 45.2 % 37-47 [facility] Work Phone: Laboratory - Chemistry and C hemistry - challengeon 09-09-2021 ALP [Catalytic activity/Vol] 75 U/L 45-117 [facility] Work Phone: [phone] ALT [Catalytic activity/Vol] 22 U/L 13-56 [facility] Work Phone: [phone] CO2 [Moles/Vol] 28.0 mmol/L 21.0-32.0 [facility] Work Phone: [phone] Globulin (S) [Mass/Vol] 4.4 g/dL 2.2-4.2 [facility] Work Phone: [phone] Urea nitrogen/Creatinine [Mass ratio] 39.4 mg/mg 10-20 [facility] Work Phone: [phone] Laboratory - Hematology and Cell countson 09-09-2021 Erythrocyte distribution width (RBC) [Entitic vol] 51.3 fL 35.1-43.9 [facility] Work Phone: [phone] Erythrocyte distribution width (RBC) [Ratio] 14.4 % 11.6-14.6 [facility] Work Phone: [phone] MCH (RBC) [Entitic mass] 30.8 pg 27.0-32.0 [facility] Work Phone: MCHC Auto (RBC) [Mass/Vol]on 09-09-2021 MCHC (RBC) [Mass/Vol] 31.9 g/dL 32-36 [facility] Work Phone: No Panel Informationon 09-09 Estimated GFR (MDRD) Amer 102 mL/min >60 [facility] Work Phone: [phone] Comment on above: GFR Calc Estimated GFR (MDRD) Non-Af Amer 84 mL/min >60 [facility] Work Phone: [phone] Comment on above: Non- GFR Calc Platelets bldon 09-09-2021 Platelets (Bld) [#/Vol] 215 10*3/uL 150-450 [facility] Work Phone: Serum or plasma albumin tammie urement (mass/volume)on 09-09-2021 Albumin [Mass/Vol] 3.3 g/dL 3.2-5.0 [facility] Work Phone: [phone] Serum or plasma albumin/glob ulin mass ratioon 09-09-2021 Albumin/Globulin [Mass ratio] 0.8 {ratio} 0.9-2.4 [facility] Work Phone: [phone] Serum or plasma calcium tammie urement (mass/volume)on 09-09-2021 Calcium [Mass/Vol] 8.4 mg/dL 8.5-10.1 [facility] Work Phone: [phone] Serum or plasma creatinine m easurement (mass/volume)on 09-09-2021 Creatinine [Mass/Vol] 0.74 mg/dL 0.55-1.02 [facility] Work Phone: Comment on above: The validity of the calculated GFR & GFRAA in patients over 70 years has not been determined. Clinical correlation is essential. Serum or plasma urea nitroge n measurement (mass/volume)on 09-09-2021 Urea nitrogen [Mass/Vol] 29 mg/dL 7-18 [facility] Work Phone: [phone] Thin prep Papanicolaou smear with manual screeningon 09-09-2021 Thin prep Papanicolaou smear with manual screening 21 U/L 15-37 [facility] Work Phone: Comment on above: Slight Hemolysis, Re sult may be falsely increased. Thin prep Papanicolaou smear with manual screening 6 5-15 [facility] Work Phone: Basophil percentageon 2021 Bilirubin [Mass/Vol] 0.30 mg/dL 0.20-1.00 [facility] Work Phone: [phone] Comment on above: For patients on eltr ombopag therapy, use of Dimension [place] TBIL is not recommended. Chloride [Moles/Vol] 103 mmol/L 98-107 [facility] Work Phone: [phone] Cholesterol [Mass/Vol] 149 mg/dL <200 [facility] Work Phone: [phone] Comment on above: <200 mg/dL Desirable 200-240 mg/dL Borderline >240 mg/dL High Risk Glucose [Mass/Vol] 110 mg/dL 74-106 [facility] Work Phone: [phone] Comment on above: Fasting Glucose resu lt from 100 to 125 mg/dL suggests IMPAIRED HOMEOSTASIS per A.D.A. criteria. Potassium [Moles/Vol] 4.3 mmol/L 3.5-5.1 [facility] Work Phone: [phone] Protein [Mass/Vol] 7.2 g/dL 6.4-8.2 [facility] Work Phone: [phone] Sodium [Moles/Vol] 138 mmol/L 136-145 [facility] Work Phone: [phone] Triglyceride [Mass/Vol] 107 mg/dL <199 [facility] Work Phone: Comment on above: The drugs N-Acetylcy steine and Metamizole may falsely depress this assay.Serum Triglycerides Reference Interval Normal <150 mg/dL Borderline high 150 - 199 mg/dL High 200 - 499 mg/dL Very High > or = 500 mg/dL WBC (Bld) [#/Vol] 7.9 10*3/uL 4.4-11.0 [facility] Work Phone: [phone] Blood erythrocytes count (nu mber/volume)on 08-08-2021 RBC (Bld) [#/Vol] 4.45 10*6/uL 4.2-5.4 [facility] Work Phone: [phone] Blood hemoglobin measurement (mass/volume)on 08-08-2021 Hemoglobin (Bld) [Mass/Vol] 14.1 g/dL 12.0-15.0 [facility] Work Phone: [phone] Blood platelet mean volumeon 08-08-2021 Platelet mean volume (Bld) [Entitic vol] 11.2 fL 6.2-12.0 [facility] Work Phone: [phone] Determination of erythrocyte mean corpuscular volume (MCV)on 08-08-2021 MCV (RBC) [Entitic vol] 97.5 fL 81-99 [facility] Work Phone: [phone] Hematocrit Auto (Bld) [Volum e fraction]on 08-08-2021 Hematocrit (Bld) [Volume fraction] 43.4 % 37-47 [facility] Work Phone: [phone] Laboratory - Chemistry and C hemistry - challengeon 08-08-2021 ALP [Catalytic activity/Vol] 77 U/L 45-117 [facility] Work Phone: [phone] ALT [Catalytic activity/Vol] 17 U/L 13-56 [facility] Work Phone: [phone] CO2 [Moles/Vol] 31.0 mmol/L 21.0-32.0 [facility] Work Phone: [phone] Globulin (S) [Mass/Vol] 4.1 g/dL 2.2-4.2 [facility] Work Phone: [phone] Urea nitrogen/Creatinine [Mass ratio] 34.6 mg/mg 10-20 [facility] Work Phone: [phone] Laboratory - Hematology and Cell countson 08-08-2021 Erythrocyte distribution width (RBC) [Entitic vol] 51.3 fL 35.1-43.9 [facility] Work Phone: [phone] Erythrocyte distribution width (RBC) [Ratio] 14.3 % 11.6-14.6 [facility] Work Phone: [phone] MCH (RBC) [Entitic mass] 31.7 pg 27.0-32.0 [facility] Work Phone: [phone] MCHC Auto (RBC) [Mass/Vol]on 08-08-2021 MCHC (RBC) [Mass/Vol] 32.5 g/dL 32-36 [facility] Work Phone: [phone] Panel Informationon 08-08 Estimated GFR (MDRD) Amer 109 mL/min >60 [facility] Work Phone: [phone] Comment on above: GFR Calc Estimated GFR (MDRD) Non-Af Amer 90 mL/min >60 [facility] Work Phone: Comment on above: Non- GFR Calc Valproic Acid (Depakene) Level 36 ug/mL 50-100 [facility] Work Phone: Platelets bldon 08-08-2021 Platelets (Bld) [#/Vol] 203 10*3/uL 150-450 [facility] Work Phone: Serum or plasma albumin tammie urement (mass/volume)on 08-08-2021 Albumin [Mass/Vol] 3.1 g/dL 3.2-5.0 [facility] Work Phone: Serum or plasma albumin/glob ulin mass ratioon 08-08-2021 Albumin/Globulin [Mass ratio] 0.8 {ratio} 0.9-2.4 [facility] Work Phone: Serum or plasma calcium tammie urement (mass/volume)on 08-08-2021 Calcium [Mass/Vol] 8.4 mg/dL 8.5-10.1 [facility] Work Phone: Serum or plasma cholesterol in HDL measurement (mass/volume)on 08-08-2021 Cholesterol in HDL [Mass/Vol] 55 mg/dL >40 [facility] Work Phone: Comment on above: The drugs N-Acetylcy steine and Metamizole may falsely depress this assay. Reference Range HDL <40 mg/dL Low HDL Cholesterol HDL >or= 60 mg/dL High HDL Cholesterol Serum or plasma cholesterol in VLDL measurement (mass/volume)on 08-08-2021 Cholesterol in VLDL [Mass/Vol] 21 mg/dL 5-40 [facility] Work Phone: [phone] Serum or plasma creatinine m easurement (mass/volume)on 08-08-2021 Creatinine [Mass/Vol] 0.69 mg/dL 0.55-1.02 [facility] Work Phone: Comment on above: The validity of the calculated GFR & GFRAA in patients over 70 years has not been determined. Clinical correlation is essential. Serum or plasma low density lipoprotein (LDL) cholesterol measurement (mass/volume)on 08-08-2021 Cholesterol in LDL [Mass/Vol] 73 mg/dL 0-130 [facility] Work Phone: Serum or plasma urea nitroge n measurement (mass/volume)on 08-08-2021 Urea nitrogen [Mass/Vol] 24 mg/dL 7-18 [facility] Work Phone: Thin prep Papanicolaou smear with manual screeningon 08-08-2021 Thin prep Papanicolaou smear with manual screening 13 U/L 15-37 [facility] Work Phone: Thin prep Papanicolaou smear with manual screening 4 5-15 [facility] Work Phone: Absolute lymphocyte counton 07-23-2021 Lymphocytes Auto (Unsp spec) [#/Vol] 2.91 10*3/uL 0.83-4.51 [facility] Work Phone: Basophil percentageon 2021 Basophils/100 WBC (Bld) 1.1 % 0-1 [facility] Work Phone: Bilirubin [Mass/Vol] 0.30 mg/dL 0.20-1.00 [facility] Work Phone: Comment on above: For patients on eltr ombopag therapy, use of Dimension [place] TBIL is not recommended. Chloride [Moles/Vol] 105 mmol/L 98-107 [facility] Work Phone: Eosinophils/100 WBC (Bld) 2.8 % 0-5 [facility] Work Phone: Glucose [Mass/Vol] 78 mg/dL 74-106 [facility] Work Phone: Neutrophils (Bld) [#/Vol] 4.1 10*3/uL 2.0-7.7 [facility] Work Phone: Neutrophils/100 WBC (Bld) 50.5 % 47-70 [facility] Work Phone: Potassium [Moles/Vol] 4.3 mmol/L 3.5-5.1 [facility] Work Phone: Protein [Mass/Vol] 7.0 g/dL 6.4-8.2 [facility] Work Phone: Sodium [Moles/Vol] 139 mmol/L 136-145 [facility] Work Phone: [phone] WBC (Bld) [#/Vol] 8.1 10*3/uL 4.4-11.0 [facility] Work Phone: [phone] Blood erythrocytes count (nu mber/volume)on 07-23-2021 RBC (Bld) [#/Vol] 4.28 10*6/uL 4.2-5.4 [facility] Work Phone: Blood hemoglobin measurement (mass/volume)on 07-23-2021 Hemoglobin (Bld) [Mass/Vol] 13.5 g/dL 12.0-15.0 [facility] Work Phone: Blood lymphocytes/100 leukoc yteson 07-23-2021 Lymphocytes/100 WBC (Bld) 35.9 % 19-41 [facility] Work Phone: [phone] Blood monocytes/100 leukocyt eson 07-23-2021 Monocytes/100 WBC (Bld) 9.5 % 0-10 [facility] Work Phone: Blood platelet mean volumeon 07-23-2021 Platelet mean volume (Bld) [Entitic vol] 11.2 fL 6.2-12.0 [facility] Work Phone: Determination of erythrocyte mean corpuscular volume (MCV)on 07-23-2021 MCV (RBC) [Entitic vol] 95.6 fL 81-99 [facility] Work Phone: Erythrocyte sedimentation ra wade 07-23-2021 ESR (Bld) [Velocity] 7 mm/h 0-30 [facility]: Hematocrit Auto (Bld) [Volum e fraction]on 07-23-2021 Hematocrit (Bld) [Volume fraction] 40.9 % 37-47 [facility] Work Phone: Laboratory - Chemistry and C hemistry - challengeon 07-23-2021 ALP [Catalytic activity/Vol] 68 U/L 45-117 [facility] Work Phone: [phone] ALT [Catalytic activity/Vol] 20 U/L 13-56 [facility] Work Phone: [phone] CO2 [Moles/Vol] 28.0 mmol/L 21.0-32.0 [facility] Work Phone: [phone] Globulin (S) [Mass/Vol] 4.1 g/dL 2.2-4.2 [facility] Work Phone: [phone] Urea nitrogen/Creatinine [Mass ratio] 43.6 mg/mg 10-20 [facility] Work Phone: [phone] Laboratory - Hematology and Cell countson 07-23-2021 Erythrocyte distribution width (RBC) [Entitic vol] 49.9 fL 35.1-43.9 [facility] Work Phone: [phone] Erythrocyte distribution width (RBC) [Ratio] 14.2 % 11.6-14.6 [facility] Work Phone: [phone] Immature granulocytes/100 WBC (Bld) 0.200 % 0.0-0.9 [facility] Work Phone: [phone] Comment on above: IG% - Immature Granu locytes (promyelocytes, myelocytes and metamyelocytes) > 1% indicates that a LEFT SHIFT is Present. MCH (RBC) [Entitic mass] 31.5 pg 27.0-32.0 [facility] Work Phone: [phone] Nucleated RBC/100 WBC (Bld) [Ratio] 0 % 0-5 [facility] Work Phone: [phone] MCHC Auto (RBC) [Mass/Vol]on 07-23-2021 MCHC (RBC) [Mass/Vol] 33.0 g/dL 32-36 [facility] Work Phone: [phone] Panel Informationon 07-23 Estimated GFR (MDRD) Amer 119 mL/min >60 [facility] Work Phone: [phone] Comment on above: GFR Calc Estimated GFR (MDRD) Non-Af Amer 99 mL/min >60 [facility] Work Phone: Comment on above: Non- GFR Calc Platelets bldon 07-23-2021 Platelets (Bld) [#/Vol] 200 10*3/uL 150-450 [facility] Work Phone: Serum or plasma C reactive p rotein measurement (mass/volume)on 07-23-2021 CRP [Mass/Vol] 3.68 mg/L 0.0-3.0 [facility] Work Phone: Comment on above: C-Reactive Protein ( CRP) provides useful information for thediagnosis, therapy and monitoring of inflammatory processesand associated diseases. For the evaluation of Relative Riskfor Cardiovascular Disease, a High Sensitivity CRP (HSCRP)should be ordered. Serum or plasma albumin tammie urement (mass/volume)on 07-23-2021 Albumin [Mass/Vol] 2.9 g/dL 3.2-5.0 [facility] Work Phone: Serum or plasma albumin/glob ulin mass ratioon 07-23-2021 Albumin/Globulin [Mass ratio] 0.7 {ratio} 0.9-2.4 [facility] Work Phone: Serum or plasma calcium tammie urement (mass/volume)on 07-23-2021 Calcium [Mass/Vol] 8.5 mg/dL 8.5-10.1 [facility] Work Phone: Serum or plasma creatinine m easurement (mass/volume)on 07-23-2021 Creatinine [Mass/Vol] 0.64 mg/dL 0.55-1.02 [facility] Work Phone: Comment on above: The validity of the calculated GFR & GFRAA in patients over 70 years has not been determined. Clinical correlation is essential. Serum or plasma urea nitroge n measurement (mass/volume)on 07-23-2021 Urea nitrogen [Mass/Vol] 28 mg/dL 7-18 [facility] Work Phone: Thin prep Papanicolaou smear with manual screeningon 02-22-2022 Thin prep Papanicolaou smear with manual screening 19 U/L 15-37 [facility] Work Phone: Thin prep Papanicolaou smear with manual screening 6 5-15 [facility] Work Phone: Absolute lymphocyte counton 07-16-2021 Lymphocytes Auto (Unsp spec) [#/Vol] 2.58 10*3/uL 0.83-4.51 [facility] Work Phone: Basophil percentageon 2021 Basophils/100 WBC (Bld) 1.1 % 0-1 [facility] Work Phone: Bilirubin [Mass/Vol] 0.30 mg/dL 0.20-1.00 [facility] Work Phone: Comment on above: For patients on eltr ombopag therapy, use of Dimension [place] TBIL is not recommended. Chloride [Moles/Vol] 103 mmol/L 98-107 [facility] Work Phone: Eosinophils/100 WBC (Bld) 3.0 % 0-5 [facility] Work Phone: Glucose [Mass/Vol] 74 mg/dL 74-106 [facility] Work Phone: Neutrophils (Bld) [#/Vol] 3.9 10*3/uL 2.0-7.7 [facility] Work Phone: Neutrophils/100 WBC (Bld) 51.3 % 47-70 [facility] Work Phone: Potassium [Moles/Vol] 4.5 mmol/L 3.5-5.1 [facility] Work Phone: Comment on above: Slight Hemolysis, Re sult may be falsely increased. Protein [Mass/Vol] 6.8 g/dL 6.4-8.2 [facility] Work Phone: Sodium [Moles/Vol] 134 mmol/L 136-145 [facility] Work Phone: WBC (Bld) [#/Vol] 7.6 10*3/uL 4.4-11.0 [facility] [facility] Work Phone: Blood erythrocytes count (nu mber/volume)on 07-16-2021 RBC (Bld) [#/Vol] 4.21 10*6/uL 4.2-5.4 [facility] Work Phone: Blood hemoglobin measurement (mass/volume)on 07-16-2021 Hemoglobin (Bld) [Mass/Vol] 13.2 g/dL 12.0-15.0 [facility] Work Phone: Blood lymphocytes/100 leukoc yteson 07-16-2021 Lymphocytes/100 WBC (Bld) 33.9 % 19-41 [facility] Work Phone: Blood monocytes/100 leukocyt eson 07-16-2021 Monocytes/100 WBC (Bld) 10.4 % 0-10 [facility] Work Phone: Blood platelet mean volumeon 07-16-2021 Platelet mean volume (Bld) [Entitic vol] 11.3 fL 6.2-12.0 [facility] Work Phone: Determination of erythrocyte mean corpuscular volume (MCV)on 07-16-2021 MCV (RBC) [Entitic vol] 97.1 fL 81-99 [facility] Work Phone: Erythrocyte sedimentation ra wade 07-16-2021 ESR (Bld) [Velocity] 9 mm/h 0-30 [facility] Work [facility]: Hematocrit Auto (Bld) [Volum e fraction]on 07-16-2021 Hematocrit (Bld) [Volume fraction] 40.9 % 37-47 [facility] Work Phone: Laboratory - Chemistry and C hemistry - challengeon 07-16-2021 ALP [Catalytic activity/Vol] 69 U/L 45-117 [facility] Work Phone: ALT [Catalytic activity/Vol] 24 U/L 13-56 [facility] Work Phone: CO2 [Moles/Vol] 27.0 mmol/L 21.0-32.0 [facility] Work Phone: [phone] Globulin (S) [Mass/Vol] 4.0 g/dL 2.2-4.2 [facility] Work Phone: [phone] Urea nitrogen/Creatinine [Mass ratio] 38.3 mg/mg 10-20 [facility] Work Phone: [phone] Laboratory - Hematology and Cell countson 07-16-2021 Erythrocyte distribution width (RBC) [Entitic vol] 50.8 fL 35.1-43.9 [facility] Work Phone: [phone] Erythrocyte distribution width (RBC) [Ratio] 14.2 % 11.6-14.6 [facility] Work Phone: [phone] Immature granulocytes/100 WBC (Bld) 0.300 % 0.0-0.9 [facility] Work Phone: [phone] Comment on above: IG% - Immature Granu locytes (promyelocytes, myelocytes and metamyelocytes) > 1% indicates that a LEFT SHIFT is Present. MCH (RBC) [Entitic mass] 31.4 pg 27.0-32.0 [facility] Work Phone: [phone] Nucleated RBC/100 WBC (Bld) [Ratio] 0 % 0-5 [facility] Work Phone: [phone] MCHC Auto (RBC) [Mass/Vol]on 07-16-2021 MCHC (RBC) [Mass/Vol] 32.3 g/dL 32-36 [facility] Work Phone: [phone] Panel Informationon 07-16 Estimated GFR (MDRD) Amer 123 mL/min >60 [facility] Work Phone: [phone] Comment on above: GFR Calc Estimated GFR (MDRD) Non-Af Amer 101 mL/min >60 [facility] Work Phone: [phone] Comment on above: Non- GFR Calc Platelets bldon 07-16-2021 Platelets (Bld) [#/Vol] 193 10*3/uL 150-450 [facility] Work Phone: Serum or plasma C reactive p rotein measurement (mass/volume)on 07-16-2021 CRP [Mass/Vol] 3.15 mg/L 0.0-3.0 [facility] Work Phone: Comment on above: C-Reactive Protein ( CRP) provides useful information for thediagnosis, therapy and monitoring of inflammatory processesand associated diseases. For the evaluation of Relative Riskfor Cardiovascular Disease, a High Sensitivity CRP (HSCRP)should be ordered. Serum or plasma albumin tammie urement (mass/volume)on 07-16-2021 Albumin [Mass/Vol] 2.8 g/dL 3.2-5.0 [facility] Work Phone: Serum or plasma albumin/glob ulin mass ratioon 07-16-2021 Albumin/Globulin [Mass ratio] 0.7 {ratio} 0.9-2.4 [facility] Work Phone: Serum or plasma calcium tammie urement (mass/volume)on 07-16-2021 Calcium [Mass/Vol] 8.8 mg/dL 8.5-10.1 [facility] Work Phone: Serum or plasma creatinine m easurement (mass/volume)on 07-16-2021 Creatinine [Mass/Vol] 0.63 mg/dL 0.55-1.02 [facility] Work Phone: Comment on above: The validity of the calculated GFR & GFRAA in patients over 70 years has not been determined. Clinical correlation is essential. Serum or plasma urea nitroge n measurement (mass/volume)on 07-16-2021 Urea nitrogen [Mass/Vol] 24 mg/dL 7-18 [facility] Work Phone: [phone] Thin prep Papanicolaou smear with manual screeningon 07-16-2021 Thin prep Papanicolaou smear with manual screening 26 U/L 15-37 [facility] Work Phone: Comment on above: Slight Hemolysis, Re sult may be falsely increased. Thin prep Papanicolaou smear with manual screening 4 5-15 [facility] Work Phone: Absolute lymphocyte counton 07-09-2021 Lymphocytes Auto (Unsp spec) [#/Vol] 2.60 10*3/uL 0.83-4.51 [facility] Work Phone: Basophil percentageon 2021 Basophils/100 WBC (Bld) 1.1 % 0-1 [facility] Work Phone: Bilirubin [Mass/Vol] 0.30 mg/dL 0.20-1.00 [facility] Work Phone: Comment on above: For patients on eltr ombopag therapy, use of Dimension [place] TBIL is not recommended. Chloride [Moles/Vol] 103 mmol/L 98-107 [facility] Work Phone: Eosinophils/100 WBC (Bld) 2.7 % 0-5 [facility] Work Phone: Glucose [Mass/Vol] 78 mg/dL 74-106 [facility] Work Phone: Neutrophils (Bld) [#/Vol] 3.7 10*3/uL 2.0-7.7 [facility] Work Phone: Neutrophils/100 WBC (Bld) 49.9 % 47-70 [facility] Work Phone: Potassium [Moles/Vol] 4.3 mmol/L 3.5-5.1 [facility] Work Phone: Protein [Mass/Vol] 6.9 g/dL 6.4-8.2 [facility] Work Phone: Sodium [Moles/Vol] 138 mmol/L 136-145 [facility] Work Phone: WBC (Bld) [#/Vol] 7.4 10*3/uL 4.4-11.0 [facility] Work Phone: Blood erythrocytes count (nu mber/volume)on 07-09-2021 RBC (Bld) [#/Vol] 4.12 10*6/uL 4.2-5.4 [facility] Work Phone: Blood hemoglobin measurement (mass/volume)on 07-09-2021 Hemoglobin (Bld) [Mass/Vol] 13.3 g/dL 12.0-15.0 [facility] Work Phone: Blood lymphocytes/100 leukoc yteson 07-09-2021 Lymphocytes/100 WBC (Bld) 35.0 % 19-41 [facility] Work Phone: [phone] Blood monocytes/100 leukocyt eson 07-09-2021 Monocytes/100 WBC (Bld) 10.9 % 0-10 [facility] Work Phone: [phone] Blood platelet mean volumeon 07-09-2021 Platelet mean volume (Bld) [Entitic vol] 11.4 fL 6.2-12.0 [facility] Work Phone: [phone] Determination of erythrocyte mean corpuscular volume (MCV)on 07-09-2021 MCV (RBC) [Entitic vol] 96.8 fL 81-99 [facility] Work Phone: [phone] Erythrocyte sedimentation ra wade 07-09-2021 ESR (Bld) [Velocity] 6 mm/h 0-30 [facility] Work Phone: [phone] Hematocrit Auto (Bld) [Volum e fraction]on 07-09-2021 Hematocrit (Bld) [Volume fraction] 39.9 % 37-47 [facility] Work Phone: Laboratory - Chemistry and C hemistry - challengeon 07-09-2021 ALP [Catalytic activity/Vol] 63 U/L 45-117 [facility] Work Phone: ALT [Catalytic activity/Vol] 19 U/L 13-56 [facility] Work Phone: [phone] CO2 [Moles/Vol] 27.0 mmol/L 21.0-32.0 [facility] Work Phone: [phone] Globulin (S) [Mass/Vol] 4.1 g/dL 2.2-4.2 [facility] Work Phone: Urea nitrogen/Creatinine [Mass ratio] 33.0 mg/mg 10-20 [facility] Work Phone: [phone] Laboratory - Hematology and Cell countson 07-09-2021 Erythrocyte distribution width (RBC) [Entitic vol] 51.5 fL 35.1-43.9 [facility] Work Phone: [phone] Erythrocyte distribution width (RBC) [Ratio] 14.3 % 11.6-14.6 [facility] Work Phone: [phone] Immature granulocytes/100 WBC (Bld) 0.400 % 0.0-0.9 [facility] Work Phone: [phone] Comment on above: IG% - Immature Granu locytes (promyelocytes, myelocytes and metamyelocytes) > 1% indicates that a LEFT SHIFT is Present. MCH (RBC) [Entitic mass] 32.3 pg 27.0-32.0 [facility] Work Phone: [phone] Nucleated RBC/100 WBC (Bld) [Ratio] 0 % 0-5 [facility] Work Phone: [phone] MCHC Auto (RBC) [Mass/Vol]on 07-09-2021 MCHC (RBC) [Mass/Vol] 33.3 g/dL 32-36 [facility] Work Phone: [phone] Panel Informationon 07-09 Estimated GFR (MDRD) Amer 103 mL/min >60 [facility] Work Phone: [phone] Comment on above: GFR Calc Estimated GFR (MDRD) Non-Af Amer 85 mL/min >60 [facility] Work Phone: [phone] Comment on above: Non- GFR Calc Platelets bldon 07-09-2021 Platelets (Bld) [#/Vol] 215 10*3/uL 150-450 [facility] Work Phone: [phone] Serum or plasma C reactive p rotein measurement (mass/volume)on 07-09-2021 CRP [Mass/Vol] mg/L 0.0-3.0 [facility] Work Phone: [phone] Comment on above: C-Reactive Protein ( CRP) provides useful information for thediagnosis, therapy and monitoring of inflammatory processesand associated diseases. For the evaluation of Relative Riskfor Cardiovascular Disease, a High Sensitivity CRP (HSCRP)should be ordered. Serum or plasma albumin tammie urement (mass/volume)on 07-09-2021 Albumin [Mass/Vol] 2.8 g/dL 3.2-5.0 [facility] Work Phone: Serum or plasma albumin/glob ulin mass ratioon 07-09-2021 Albumin/Globulin [Mass ratio] 0.7 {ratio} 0.9-2.4 [facility] Work Phone: [phone] Serum or plasma calcium tammie urement (mass/volume)on 07-09-2021 Calcium [Mass/Vol] 8.6 mg/dL 8.5-10.1 [facility] Work Phone: [phone] Serum or plasma creatinine m easurement (mass/volume)on 07-09-2021 Creatinine [Mass/Vol] 0.73 mg/dL 0.55-1.02 [facility] Work Phone: Comment on above: The validity of the calculated GFR & GFRAA in patients over 70 years has not been determined. Clinical correlation is essential. Serum or plasma urea nitroge n measurement (mass/volume)on 07-09-2021 Urea nitrogen [Mass/Vol] 24 mg/dL 7-18 [facility] Work Phone: [phone] Thin prep Papanicolaou smear with manual screeningon 07-09-2021 Thin prep Papanicolaou smear with manual screening 20 U/L 15-37 [facility] Work Phone: [phone] Thin prep Papanicolaou smear with manual screening 8 5-15 [facility] Work Phone: [phone] Absolute lymphocyte counton 07-02-2021 Lymphocytes Auto (Unsp spec) [#/Vol] 2.06 10*3/uL 0.83-4.51 [facility] Work Phone: [phone] Basophil percentageon 2021 Basophils/100 WBC (Bld) 0.7 % 0-1 [facility] Work Phone: [phone] Bilirubin [Mass/Vol] 0.50 mg/dL 0.20-1.00 [facility] Work Phone: Comment on above: For patients on eltr ombopag therapy, use of [employer]ension [place] TBIL is not recommended. Chloride [Moles/Vol] 103 mmol/L 98-107 [facility] Work Phone: Eosinophils/100 WBC (Bld) 1.7 % 0-5 [facility] Work Phone: Glucose [Mass/Vol] 83 mg/dL 74-106 [facility] Work Phone: Neutrophils (Bld) [#/Vol] 5.0 10*3/uL 2.0-7.7 [facility] Work Phone: Neutrophils/100 WBC (Bld) 60.8 % 47-70 [facility] Work Phone: Potassium [Moles/Vol] 4.7 mmol/L 3.5-5.1 [facility] Work Phone: Comment on above: Moderate Hemolysis, Result may be falsely increased. Protein [Mass/Vol] 7.0 g/dL 6.4-8.2 [facility] Work Phone: Sodium [Moles/Vol] 135 mmol/L 136-145 [facility] Work Phone: WBC (Bld) [#/Vol] 8.3 10*3/uL 4.4-11.0 [facility] Work Phone: Blood erythrocytes count (nu mber/volume)on 07-02-2021 RBC (Bld) [#/Vol] 4.11 10*6/uL 4.2-5.4 [facility] Work Phone: Blood hemoglobin measurement (mass/volume)on 07-02-2021 Hemoglobin (Bld) [Mass/Vol] 13.2 g/dL 12.0-15.0 [facility] Work Phone: Blood lymphocytes/100 leukoc yteson 02-01-2022 Lymphocytes/100 WBC (Bld) 24.9 % 19-41 [facility] Work Phone: Blood monocytes/100 leukocyt eson 07-02-2021 Monocytes/100 WBC (Bld) 11.4 % 0-10 [facility] Work Phone: Blood platelet mean volumeon 07-02-2021 Platelet mean volume (Bld) [Entitic vol] 11.0 fL 6.2-12.0 [facility] Work Phone: Determination of erythrocyte mean corpuscular volume (MCV)on 07-02-2021 MCV (RBC) [Entitic vol] 98.5 fL 81-99 [facility] Work Phone: Erythrocyte sedimentation ra wade 07-02-2021 ESR (Bld) [Velocity] 7 mm/h 0-30 [facility] Work Phone: Hematocrit Auto (Bld) [Volum e fraction]on 07-02-2021 Hematocrit (Bld) [Volume fraction] 40.5 % 37-47 [facility] Work Phone: Laboratory - Chemistry and C hemistry - challengeon 07-02-2021 ALP [Catalytic activity/Vol] 58 U/L 45-117 [facility] Work Phone: ALT [Catalytic activity/Vol] 21 U/L 13-56 [facility] Work Phone: CO2 [Moles/Vol] 29.0 mmol/L 21.0-32.0 [facility] Work Phone: Globulin (S) [Mass/Vol] 4.1 g/dL 2.2-4.2 [facility] Work Phone: Urea nitrogen/Creatinine [Mass ratio] 31.6 mg/mg 10-20 [facility] Work Phone: Laboratory - Hematology and Cell countson 07-02-2021 Erythrocyte distribution width (RBC) [Entitic vol] 51.7 fL 35.1-43.9 [facility] Work Phone: Erythrocyte distribution width (RBC) [Ratio] 14.2 % 11.6-14.6 [facility] Work Phone: [phone] Immature granulocytes/100 WBC (Bld) 0.500 % 0.0-0.9 [facility] Work Phone: [phone] Comment on above: IG% - Immature Granu locytes (promyelocytes, myelocytes and metamyelocytes) > 1% indicates that a LEFT SHIFT is Present. MCH (RBC) [Entitic mass] 32.1 pg 27.0-32.0 [facility] Work Phone: [phone] Nucleated RBC/100 WBC (Bld) [Ratio] 0 % 0-5 [facility] Work Phone: [phone] MCHC Auto (RBC) [Mass/Vol]on 07-02-2021 MCHC (RBC) [Mass/Vol] 32.6 g/dL 32-36 [facility] Work Phone: No Panel Informationon 07-02 Estimated GFR (MDRD) Amer 115 mL/min >60 [facility] Work Phone: Comment on above: GFR Calc Estimated GFR (MDRD) Non-Af Amer 95 mL/min >60 [facility] Work Phone: [phone] Comment on above: Non- GFR Calc Platelets bldon 07-02-2021 Platelets (Bld) [#/Vol] 211 10*3/uL 150-450 [facility] Work Phone: [phone] Serum or plasma C reactive p rotein measurement (mass/volume)on 07-02-2021 CRP [Mass/Vol] mg/L 0.0-3.0 [facility] Work Phone: [phone] Comment on above: C-Reactive Protein ( CRP) provides useful information for thediagnosis, therapy and monitoring of inflammatory processesand associated diseases. For the evaluation of Relative Riskfor Cardiovascular Disease, a High Sensitivity CRP (HSCRP)should be ordered. Serum or plasma albumin tammie urement (mass/volume)on 07-02-2021 Albumin [Mass/Vol] 2.9 g/dL 3.2-5.0 [facility] Work Phone: [phone] Serum or plasma albumin/glob ulin mass ratioon 07-02-2021 Albumin/Globulin [Mass ratio] 0.7 {ratio} 0.9-2.4 [facility] Work Phone: [phone] Serum or plasma calcium tammie urement (mass/volume)on 07-02-2021 Calcium [Mass/Vol] 8.4 mg/dL 8.5-10.1 [facility] Work Phone: [phone] Serum or plasma creatinine m easurement (mass/volume)on 07-02-2021 Creatinine [Mass/Vol] 0.66 mg/dL 0.55-1.02 [facility] Work Phone: Comment on above: The validity of the calculated GFR & GFRAA in patients over 70 years has not been determined. Clinical correlation is essential. Serum or plasma urea nitroge n measurement (mass/volume)on 07-02-2021 Urea nitrogen [Mass/Vol] 21 mg/dL 7-18 [facility] Work Phone: [phone] Thin prep Papanicolaou smear with manual screeningon 07-02-2021 Thin prep Papanicolaou smear with manual screening 26 U/L 15-37 [facility] Work Phone: [phone] Comment on above: Moderate Hemolysis, Result may be falsely increased. Thin prep Papanicolaou smear with manual screening 3 5-15 [facility] Work Phone: [phone] Absolute lymphocyte counton 06-25-2021 Lymphocytes Auto (Unsp spec) [#/Vol] 3.59 10*3/uL 0.83-4.51 [facility] Work Phone: [phone] Basophil percentageon 2021 Basophils/100 WBC (Bld) 1.2 % 0-1 [facility] Work Phone: [phone] Bilirubin [Mass/Vol] 0.40 mg/dL 0.20-1.00 [facility] Work Phone: [phone] Comment on above: For patients on eltr ombopag therapy, use of [employer] [place] TBIL is not recommended. Chloride [Moles/Vol] 105 mmol/L 98-107 [facility] Work Phone: Eosinophils/100 WBC (Bld) 2.0 % 0-5 [facility] Work Phone: Glucose [Mass/Vol] 82 mg/dL 74-106 [facility] Work Phone: Neutrophils (Bld) [#/Vol] 4.0 10*3/uL 2.0-7.7 [facility] Work Phone: Neutrophils/100 WBC (Bld) 47.0 % 47-70 [facility] Work Phone: Potassium [Moles/Vol] 4.7 mmol/L 3.5-5.1 [facility] Work Phone: Protein [Mass/Vol] 7.4 g/dL 6.4-8.2 [facility] Work Phone: Sodium [Moles/Vol] 138 mmol/L 136-145 [facility] Work Phone: WBC (Bld) [#/Vol] 8.6 10*3/uL 4.4-11.0 [facility] Work Phone: Blood erythrocytes count (nu mber/volume)on 06-25-2021 RBC (Bld) [#/Vol] 4.57 10*6/uL 4.2-5.4 [facility] Work Phone: Blood hemoglobin measurement (mass/volume)on 06-25-2021 Hemoglobin (Bld) [Mass/Vol] 13.8 g/dL 12.0-15.0 [facility] Work Phone: Blood lymphocytes/100 leukoc yteson 06-25-2021 Lymphocytes/100 WBC (Bld) 42.0 % 19-41 [facility] Work Phone: Blood monocytes/100 leukocyt eson 06-25-2021 Monocytes/100 WBC (Bld) 7.6 % 0-10 [facility] Work Phone: Blood platelet mean volumeon 06-25-2021 Platelet mean volume (Bld) [Entitic vol] 11.4 fL 6.2-12.0 [facility] Work Phone: [phone] Determination of erythrocyte mean corpuscular volume (MCV)on 06-25-2021 MCV (RBC) [Entitic vol] 96.1 fL 81-99 [facility] Work Phone: [phone] Erythrocyte sedimentation ra wade 06-25-2021 ESR (Bld) [Velocity] 18 mm/h 0-30 [facility] Work Phone: [phone] Hematocrit Auto (Bld) [Volum e fraction]on 06-25-2021 Hematocrit (Bld) [Volume fraction] 43.9 % 37-47 [facility] Work Phone: Laboratory - Chemistry and C hemistry - challengeon 06-25-2021 ALP [Catalytic activity/Vol] 72 U/L 45-117 [facility] Work Phone: [phone] ALT [Catalytic activity/Vol] 19 U/L 13-56 [facility] Work Phone: [phone] CO2 [Moles/Vol] 26.0 mmol/L 21.0-32.0 [facility] Work Phone: [phone] Globulin (S) [Mass/Vol] 4.3 g/dL 2.2-4.2 [facility] Work Phone: [phone] Urea nitrogen/Creatinine [Mass ratio] 35.0 mg/mg 10-20 [facility] Work Phone: [phone] Laboratory - Hematology and Cell countson 06-25-2021 Erythrocyte distribution width (RBC) [Entitic vol] 51.1 fL 35.1-43.9 [facility] Work Phone: [phone] Erythrocyte distribution width (RBC) [Ratio] 14.4 % 11.6-14.6 [facility] Work Phone: [phone] Immature granulocytes/100 WBC (Bld) 0.200 % 0.0-0.9 [facility] Work Phone: [phone] Comment on above: IG% - Immature Granu locytes (promyelocytes, myelocytes and metamyelocytes) > 1% indicates that a LEFT SHIFT is Present. MCH (RBC) [Entitic mass] 30.2 pg 27.0-32.0 [facility] Work Phone: Nucleated RBC/100 WBC (Bld) [Ratio] 0 % 0-5 [facility] Work Phone: MCHC Auto (RBC) [Mass/Vol]on 06-25-2021 MCHC (RBC) [Mass/Vol] 31.4 g/dL 32-36 [facility] Work Phone: No Panel Informationon 06-25 Estimated GFR (MDRD) Amer 122 mL/min >60 [facility] Work Phone: Comment on above: GFR Calc Estimated GFR (MDRD) Non-Af Amer 101 mL/min >60 [facility] Work Phone: Comment on above: Non- GFR Calc Platelets bldon 06-25-2021 Platelets (Bld) [#/Vol] 244 10*3/uL 150-450 [facility] Work Phone: Serum or plasma C reactive p rotein measurement (mass/volume)on 06-25-2021 CRP [Mass/Vol] 8.29 mg/L 0.0-3.0 [facility] Work Phone: Comment on above: C-Reactive Protein ( CRP) provides useful information for thediagnosis, therapy and monitoring of inflammatory processesand associated diseases. For the evaluation of Relative Riskfor Cardiovascular Disease, a High Sensitivity CRP (HSCRP)should be ordered. Serum or plasma albumin tammie urement (mass/volume)on 06-25-2021 Albumin [Mass/Vol] 3.1 g/dL 3.2-5.0 [facility] Work Phone: [phone] Serum or plasma albumin/glob ulin mass ratioon 06-25-2021 Albumin/Globulin [Mass ratio] 0.7 {ratio} 0.9-2.4 [facility] Work Phone: [phone] Serum or plasma calcium tammie urement (mass/volume)on 06-25-2021 Calcium [Mass/Vol] 9.0 mg/dL 8.5-10.1 [facility] Work Phone: Serum or plasma creatinine m easurement (mass/volume)on 06-25-2021 Creatinine [Mass/Vol] 0.63 mg/dL 0.55-1.02 [facility] Work Phone: Comment on above: The validity of the calculated GFR & GFRAA in patients over 70 years has not been determined. Clinical correlation is essential. Serum or plasma urea nitroge n measurement (mass/volume)on 06-25-2021 Urea nitrogen [Mass/Vol] 22 mg/dL 7-18 [facility] Work Phone: Thin prep Papanicolaou smear with manual screeningon 06-25-2021 Thin prep Papanicolaou smear with manual screening 17 U/L 15-37 [facility] Work Phone: Thin prep Papanicolaou smear with manual screening 7 5-15 [facility] Work Phone: Absolute lymphocyte counton 06-18-2021 Lymphocytes Auto (Unsp spec) [#/Vol] 2.33 10*3/uL 0.83-4.51 [facility] Work Phone: Basophil percentageon 2021 Basophils/100 WBC (Bld) 0.8 % 0-1 [facility] Work Phone: Bilirubin [Mass/Vol] 0.30 mg/dL 0.20-1.00 [facility] Work Phone: Comment on above: For patients on eltr ombopag therapy, use of [employer] [place] TBIL is not recommended. Chloride [Moles/Vol] 100 mmol/L 98-107 [facility] Work Phone: Eosinophils/100 WBC (Bld) 1.8 % 0-5 [facility] Work Phone: Glucose [Mass/Vol] 81 mg/dL 74-106 [facility] Work Phone: Neutrophils (Bld) [#/Vol] 4.6 10*3/uL 2.0-7.7 [facility] Work Phone: [phone] Neutrophils/100 WBC (Bld) 58.4 % 47-70 [facility] Work Phone: [phone] Potassium [Moles/Vol] 4.5 mmol/L 3.5-5.1 [facility] Work Phone: [phone] Protein [Mass/Vol] 7.4 g/dL 6.4-8.2 [facility] Work Phone: [phone] Sodium [Moles/Vol] 135 mmol/L 136-145 [facility] Work Phone: [phone] WBC (Bld) [#/Vol] 7.9 10*3/uL 4.4-11.0 [facility] Work Phone: [phone] Blood erythrocytes count (nu mber/volume)on 06-18-2021 RBC (Bld) [#/Vol] 4.36 10*6/uL 4.2-5.4 [facility]: [phone] Blood hemoglobin measurement (mass/volume)on 06-18-2021 Hemoglobin (Bld) [Mass/Vol] 13.6 g/dL 12.0-15.0 [facility] Work Phone: [phone] Blood lymphocytes/100 leukoc yteson 06-18-2021 Lymphocytes/100 WBC (Bld) 29.6 % 19-41 [facility] Work Phone: [phone] Blood monocytes/100 leukocyt eson 06-18-2021 Monocytes/100 WBC (Bld) 9.0 % 0-10 [facility] Work Phone: [phone] Blood platelet mean volumeon 06-18-2021 Platelet mean volume (Bld) [Entitic vol] 11.1 fL 6.2-12.0 [facility] Work Phone: [phone] Determination of erythrocyte mean corpuscular volume (MCV)on 06-18-2021 MCV (RBC) [Entitic vol] 95.9 fL 81-99 [facility] Work Phone: [phone] Erythrocyte sedimentation ra wade 06-18-2021 ESR (Bld) [Velocity] 6 mm/h 0-30 [facility] Work [facility]: [phone] Hematocrit Auto (Bld) [Volum e fraction]on 06-18-2021 Hematocrit (Bld) [Volume fraction] 41.8 % 37-47 [facility] Work Phone: [phone] Laboratory - Chemistry and C hemistry - challengeon 06-18-2021 ALP [Catalytic activity/Vol] 66 U/L 45-117 [facility] Work Phone: [phone] ALT [Catalytic activity/Vol] 24 U/L 13-56 [facility] Work Phone: [phone] CO2 [Moles/Vol] 28.0 mmol/L 21.0-32.0 [facility] Work Phone: [phone] Globulin (S) [Mass/Vol] 4.3 g/dL 2.2-4.2 [facility] Work Phone: [phone] Urea nitrogen/Creatinine [Mass ratio] 29.9 mg/mg 10-20 [facility] Work Phone: [phone] Laboratory - Hematology and Cell countson 06-18-2021 Erythrocyte distribution width (RBC) [Entitic vol] 51.1 fL 35.1-43.9 [facility] Work Phone: [phone] Erythrocyte distribution width (RBC) [Ratio] 14.4 % 11.6-14.6 [facility] Work Phone: [phone] Immature granulocytes/100 WBC (Bld) 0.400 % 0.0-0.9 [facility] Work Phone: [phone] Comment on above: IG% - Immature Granu locytes (promyelocytes, myelocytes and metamyelocytes) > 1% indicates that a LEFT SHIFT is Present. MCH (RBC) [Entitic mass] 31.2 pg 27.0-32.0 [facility] Work Phone: [phone] Nucleated RBC/100 WBC (Bld) [Ratio] 0 % 0-5 [facility] Work Phone: [phone] MCHC Auto (RBC) [Mass/Vol]on 06-18-2021 MCHC (RBC) [Mass/Vol] 32.5 g/dL 32-36 [facility] Work Phone: No Panel Informationon 06-18 Estimated GFR (MDRD) Amer 114 mL/min >60 [facility] Work Phone: Comment on above: GFR Calc Estimated GFR (MDRD) Non-Af Amer 94 mL/min >60 [facility] Work Phone: [phone] Comment on above: Non- GFR Calc Platelets bldon 06-18-2021 Platelets (Bld) [#/Vol] 195 10*3/uL 150-450 [facility] Work Phone: [phone] Serum or plasma C reactive p rotein measurement (mass/volume)on 06-18-2021 CRP [Mass/Vol] 4.20 mg/L 0.0-3.0 [facility] Work Phone: Comment on above: C-Reactive Protein ( CRP) provides useful information for thediagnosis, therapy and monitoring of inflammatory processesand associated diseases. For the evaluation of Relative Riskfor Cardiovascular Disease, a High Sensitivity CRP (HSCRP)should be ordered. Serum or plasma albumin tammie urement (mass/volume)on 06-18-2021 Albumin [Mass/Vol] 3.1 g/dL 3.2-5.0 [facility] Work Phone: [phone] Serum or plasma albumin/glob ulin mass ratioon 06-18-2021 Albumin/Globulin [Mass ratio] 0.7 {ratio} 0.9-2.4 [facility] Work Phone: [phone] Serum or plasma calcium tammie urement (mass/volume)on 06-18-2021 Calcium [Mass/Vol] 8.6 mg/dL 8.5-10.1 [facility] Work Phone: [phone] Serum or plasma creatinine m easurement (mass/volume)on 06-18-2021 Creatinine [Mass/Vol] 0.67 mg/dL 0.55-1.02 [facility] Work Phone: Comment on above: The validity of the calculated GFR & GFRAA in patients over 70 years has not been determined. Clinical correlation is essential. Serum or plasma urea nitroge n measurement (mass/volume)on 06-18-2021 Urea nitrogen [Mass/Vol] 20 mg/dL 7-18 [facility] Work Phone: Thin prep Papanicolaou smear with manual screeningon 06-18-2021 Thin prep Papanicolaou smear with manual screening 22 U/L 15-37 [facility] Work Phone: Thin prep Papanicolaou smear with manual screening 7 5-15 [facility] Work Phone: Absolute lymphocyte counton 06-11-2021 Lymphocytes Auto (Unsp spec) [#/Vol] 2.02 10*3/uL 0.83-4.51 [facility] Work Phone: Basophil percentageon 2021 Basophils/100 WBC (Bld) 0.8 % 0-1 [facility] Work Phone: Bilirubin [Mass/Vol] 0.40 mg/dL 0.20-1.00 [facility] Work Phone: Comment on above: For patients on eltr ombopag therapy, use of Dimension [place] TBIL is not recommended. Chloride [Moles/Vol] 101 mmol/L 98-107 [facility] Work Phone: Eosinophils/100 WBC (Bld) 2.0 % 0-5 [facility] Work Phone: Glucose [Mass/Vol] 84 mg/dL 74-106 [facility] Work Phone: Comment on above: Please note revised GLUCOSE reference range effective 2017. Neutrophils (Bld) [#/Vol] 4.5 10*3/uL 2.0-7.7 [facility] Work Phone: Neutrophils/100 WBC (Bld) 58.4 % 47-70 [facility] Work Phone: Potassium [Moles/Vol] 4.4 mmol/L 3.5-5.1 [facility] Work Phone: Protein [Mass/Vol] 6.9 g/dL 6.4-8.2 [facility]: Sodium [Moles/Vol] 137 mmol/L 136-145 [facility]: WBC (Bld) [#/Vol] 7.6 10*3/uL 4.4-11.0 [facility] Work Phone: Blood erythrocytes count (nu mber/volume)on 06-11-2021 RBC (Bld) [#/Vol] 4.08 10*6/uL 4.2-5.4 [facility]: Blood hemoglobin measurement (mass/volume)on 06-11-2021 Hemoglobin (Bld) [Mass/Vol] 12.9 g/dL 12.0-15.0 [facility] Work Phone: Blood lymphocytes/100 leukoc yteson 06-11-2021 Lymphocytes/100 WBC (Bld) 26.4 % 19-41 [facility] Work Phone: Blood monocytes/100 leukocyt eson 06-11-2021 Monocytes/100 WBC (Bld) 12.0 % 0-10 [facility] Work Phone: Blood platelet mean volumeon 06-11-2021 Platelet mean volume (Bld) [Entitic vol] 11.1 fL 6.2-12.0 [facility] Work Phone: Determination of erythrocyte mean corpuscular volume (MCV)on 06-11-2021 MCV (RBC) [Entitic vol] 95.6 fL 81-99 [facility] Work Phone: Erythrocyte sedimentation ra wade 06-11-2021 ESR (Bld) [Velocity] 12 mm/h 0-30 [facility] Work Phone: Hematocrit Auto (Bld) [Volum e fraction]on 06-11-2021 Hematocrit (Bld) [Volume fraction] 39.0 % 37-47 [facility] Work Phone: [phone] Laboratory - Chemistry and C hemistry - challengeon 06-11-2021 ALP [Catalytic activity/Vol] 61 U/L 45-117 [facility] Work Phone: [phone] ALT [Catalytic activity/Vol] 23 U/L 13-56 [facility] Work Phone: [phone] CO2 [Moles/Vol] 30.0 mmol/L 21.0-32.0 [facility] Work Phone: [phone] Globulin (S) [Mass/Vol] 4.2 g/dL 2.2-4.2 [facility] Work Phone: [phone] Urea nitrogen/Creatinine [Mass ratio] 28.7 mg/mg 10-20 [facility] Work Phone: [phone] Laboratory - Hematology and Cell countson 06-11-2021 Erythrocyte distribution width (RBC) [Entitic vol] 51.7 fL 35.1-43.9 [facility] Work Phone: [phone] Erythrocyte distribution width (RBC) [Ratio] 14.8 % 11.6-14.6 [facility] Work Phone: [phone] Immature granulocytes/100 WBC (Bld) 0.400 % 0.0-0.9 [facility] Work Phone: [phone] Comment on above: IG% - Immature Granu locytes (promyelocytes, myelocytes and metamyelocytes) > 1% indicates that a LEFT SHIFT is Present. MCH (RBC) [Entitic mass] 31.6 pg 27.0-32.0 [facility] Work Phone: [phone] Nucleated RBC/100 WBC (Bld) [Ratio] 0 % 0-5 [facility] Work Phone: [phone] MCHC Auto (RBC) [Mass/Vol]on 06-11-2021 MCHC (RBC) [Mass/Vol] 33.1 g/dL 32-36 [facility] Work Phone: [phone] Panel Informationon 06-11 Estimated GFR (MDRD) Amer 123 mL/min >60 [facility] Work Phone: Comment on above: GFR Calc Estimated GFR (MDRD) Non-Af Amer 101 mL/min >60 [facility] Work Phone: Comment on above: Non- GFR Calc Platelets bldon 06-11-2021 Platelets (Bld) [#/Vol] 194 10*3/uL 150-450 [facility] Work Phone: Serum or plasma C reactive p rotein measurement (mass/volume)on 06-11-2021 CRP [Mass/Vol] 3.14 mg/L 0.0-3.0 [facility] Work Phone: Comment on above: C-Reactive Protein ( CRP) provides useful information for thediagnosis, therapy and monitoring of inflammatory processesand associated diseases. For the evaluation of Relative Riskfor Cardiovascular Disease, a High Sensitivity CRP (HSCRP)should be ordered. Serum or plasma albumin tammie urement (mass/volume)on 06-11-2021 Albumin [Mass/Vol] 2.7 g/dL 3.2-5.0 [facility] Work Phone: Serum or plasma albumin/glob ulin mass ratioon 06-11-2021 Albumin/Globulin [Mass ratio] 0.6 {ratio} 0.9-2.4 [facility] Work Phone: Serum or plasma calcium tammie urement (mass/volume)on 06-11-2021 Calcium [Mass/Vol] 8.5 mg/dL 8.5-10.1 [facility] Work Phone: Serum or plasma creatinine m easurement (mass/volume)on 06-11-2021 Creatinine [Mass/Vol] 0.63 mg/dL 0.55-1.02 [facility] Work Phone: Comment on above: The validity of the calculated GFR & GFRAA in patients over 70 years has not been determined. Clinical correlation is essential. Serum or plasma urea nitroge n measurement (mass/volume)on 06-11-2021 Urea nitrogen [Mass/Vol] 18 mg/dL 7-18 [facility] Work Phone: Thin prep Papanicolaou smear with manual screeningon 06-11-2021 Thin prep Papanicolaou smear with manual screening 17 U/L 15-37 [facility] Work Phone: [phone] Thin prep Papanicolaou smear with manual screening 6 5-15 [facility] Work Phone: [phone] Absolute lymphocyte counton 06-04-2021 Lymphocytes Auto (Unsp spec) [#/Vol] 3.89 10*3/uL 0.83-4.51 [facility] Work Phone: Basophil percentageon 2021 Basophils/100 WBC (Bld) 0.9 % 0-1 [facility] Work Phone: Bilirubin [Mass/Vol] 0.30 mg/dL 0.20-1.00 [facility] Work Phone: [phone] Comment on above: For patients on eltr ombopag therapy, use of [employer] [place] TBIL is not recommended. Chloride [Moles/Vol] 102 mmol/L 98-107 [facility] Work Phone: Eosinophils/100 WBC (Bld) 2.1 % 0-5 [facility] Work Phone: Glucose [Mass/Vol] 97 mg/dL 74-106 [facility] Work Phone: Comment on above: Please note revised GLUCOSE reference range effective 2017. Neutrophils (Bld) [#/Vol] 4.9 10*3/uL 2.0-7.7 [facility] Work Phone: Neutrophils/100 WBC (Bld) 50.4 % 47-70 [facility] Work Phone: Potassium [Moles/Vol] 4.8 mmol/L 3.5-5.1 [facility] Work Phone: Comment on above: Slight Hemolysis, Re sult may be falsely increased. Protein [Mass/Vol] 7.8 g/dL 6.4-8.2 [facility] Work Phone: Sodium [Moles/Vol] 138 mmol/L 136-145 [facility] Work Phone: [phone] WBC (Bld) [#/Vol] 9.8 10*3/uL 4.4-11.0 [facility] Work Phone: [phone] Blood erythrocytes count (nu mber/volume)on 06-04-2021 RBC (Bld) [#/Vol] 4.45 10*6/uL 4.2-5.4 [facility] Phone: [phone] Blood hemoglobin measurement (mass/volume)on 06-04-2021 Hemoglobin (Bld) [Mass/Vol] 13.5 g/dL 12.0-15.0 [facility] Work Phone: [phone] Blood lymphocytes/100 leukoc yteson 06-04-2021 Lymphocytes/100 WBC (Bld) 39.6 % 19-41 [facility] Work Phone: [phone] Blood monocytes/100 leukocyt eson 06-04-2021 Monocytes/100 WBC (Bld) 6.6 % 0-10 [facility] Work Phone: Blood platelet mean volumeon 06-04-2021 Platelet mean volume (Bld) [Entitic vol] 11.0 fL 6.2-12.0 [facility] Work Phone: Determination of erythrocyte mean corpuscular volume (MCV)on 06-04-2021 MCV (RBC) [Entitic vol] 95.7 fL 81-99 [facility] Work Phone: [phone] Erythrocyte sedimentation ra wade 06-04-2021 ESR (Bld) [Velocity] 12 mm/h 0-30 [facility] Work Phone: [phone] Hematocrit Auto (Bld) [Volum e fraction]on 06-04-2021 Hematocrit (Bld) [Volume fraction] 42.6 % 37-47 [facility] Work Phone: [phone] Laboratory - Chemistry and C hemistry - challengeon 06-04-2021 ALP [Catalytic activity/Vol] 71 U/L 45-117 [facility] Work Phone: [phone] ALT [Catalytic activity/Vol] 27 U/L 13-56 [facility] Work Phone: [phone] CO2 [Moles/Vol] 27.0 mmol/L 21.0-32.0 [facility] Work Phone: [phone] Globulin (S) [Mass/Vol] 4.7 g/dL 2.2-4.2 [facility] Work Phone: [phone] Urea nitrogen/Creatinine [Mass ratio] 31.2 mg/mg 10-20 [facility] Work Phone: [phone] Laboratory - Hematology and Cell countson 06-04-2021 Erythrocyte distribution width (RBC) [Entitic vol] 52.3 fL 35.1-43.9 [facility] Work Phone: [phone] Erythrocyte distribution width (RBC) [Ratio] 14.7 % 11.6-14.6 [facility] Work Phone: [phone] Immature granulocytes/100 WBC (Bld) 0.400 % 0.0-0.9 [facility] Work Phone: [phone] Comment on above: IG% - Immature Granu locytes (promyelocytes, myelocytes and metamyelocytes) > 1% indicates that a LEFT SHIFT is Present. MCH (RBC) [Entitic mass] 30.3 pg 27.0-32.0 [facility] Work Phone: [phone] Nucleated RBC/100 WBC (Bld) [Ratio] 0 % 0-5 [facility] Work Phone: [phone] MCHC Auto (RBC) [Mass/Vol]on 06-04-2021 MCHC (RBC) [Mass/Vol] 31.7 g/dL 32-36 [facility] Work Phone: [phone] Panel Informationon 06-04 Estimated GFR (MDRD) Amer 107 mL/min >60 [facility] Work Phone: [phone] Comment on above: GFR Calc Estimated GFR (MDRD) Non-Af Amer 88 mL/min >60 [facility] Work Phone: [phone] Comment on above: Non- GFR Calc Platelets bldon 06-04-2021 Platelets (Bld) [#/Vol] 279 10*3/uL 150-450 [facility] Work Phone: Serum or plasma C reactive p rotein measurement (mass/volume)on 06-04-2021 CRP [Mass/Vol] 3.79 mg/L 0.0-3.0 [facility] Work Phone: Comment on above: C-Reactive Protein ( CRP) provides useful information for thediagnosis, therapy and monitoring of inflammatory processesand associated diseases. For the evaluation of Relative Riskfor Cardiovascular Disease, a High Sensitivity CRP (HSCRP)should be ordered. Serum or plasma albumin tammie urement (mass/volume)on 06-04-2021 Albumin [Mass/Vol] 3.1 g/dL 3.2-5.0 [facility] Work Phone: Serum or plasma albumin/glob ulin mass ratioon 06-04-2021 Albumin/Globulin [Mass ratio] 0.7 {ratio} 0.9-2.4 [facility] Work Phone: Serum or plasma calcium tammie urement (mass/volume)on 06-04-2021 Calcium [Mass/Vol] 9.0 mg/dL 8.5-10.1 [facility] Work Phone: Serum or plasma creatinine m easurement (mass/volume)on 06-04-2021 Creatinine [Mass/Vol] 0.71 mg/dL 0.55-1.02 [facility] Work Phone: Comment on above: The validity of the calculated GFR & GFRAA in patients over 70 years has not been determined. Clinical correlation is essential. Serum or plasma urea nitroge n measurement (mass/volume)on 06-04-2021 Urea nitrogen [Mass/Vol] 22 mg/dL 7-18 [facility] Work Phone: Thin prep Papanicolaou smear with manual screeningon 06-04-2021 Thin prep Papanicolaou smear with manual screening 22 U/L 15-37 [facility] Work Phone: Comment on above: Slight Hemolysis, Re sult may be falsely increased. Thin prep Papanicolaou smear with manual screening 9 5-15 [facility] Work Phone: Absolute lymphocyte counton 05-28-2021 Lymphocytes Auto (Unsp spec) [#/Vol] 2.83 10*3/uL 0.83-4.51 [facility] Work Phone: Basophil percentageon 2020 Bilirubin [Mass/Vol] 0.30 mg/dL 0.20-1.00 [facility] Work Phone: Comment on above: For patients on eltr ombopag therapy, use of [employer]ension [place] TBIL is not recommended. Chloride [Moles/Vol] 104 mmol/L 98-107 [facility] Work Phone: Eosinophils/100 WBC (Bld) 2.0 % 0-5 [facility] Work Phone: Glucose [Mass/Vol] 85 mg/dL 74-106 [facility] Work Phone: Comment on above: Please note revised GLUCOSE reference range effective 2017. Neutrophils (Bld) [#/Vol] 4.9 10*3/uL 2.0-7.7 [facility] Work Phone: Potassium [Moles/Vol] 4.3 mmol/L 3.5-5.1 [facility] Work Phone: Protein [Mass/Vol] 7.2 g/dL 6.4-8.2 [facility] Work Phone: Sodium [Moles/Vol] 137 mmol/L 136-145 [facility] Work Phone: WBC (Bld) [#/Vol] 8.9 10*3/uL 4.4-11.0 [facility] Work Phone: Blood erythrocytes count (nu mber/volume)on 05-28-2021 RBC (Bld) [#/Vol] 4.29 10*6/uL 4.2-5.4 [facility] Work Phone: Blood hemoglobin measurement (mass/volume)on 05-28-2021 Hemoglobin (Bld) [Mass/Vol] 13.3 g/dL 12.0-15.0 [facility] Work Phone: Blood lymphocytes/100 leukoc yteson 05-28-2021 Lymphocytes/100 WBC (Bld) 31.9 % 19-41 [facility] Work Phone: [phone] Blood monocytes/100 leukocyt eson 05-28-2021 Monocytes/100 WBC (Bld) 9.5 % 0-10 [facility] Work Phone: Blood platelet mean volumeon 05-28-2021 Platelet mean volume (Bld) [Entitic vol] 10.6 fL 6.2-12.0 [facility] Work Phone: [phone] Determination of erythrocyte mean corpuscular volume (MCV)on 05-28-2021 MCV (RBC) [Entitic vol] 93.2 fL 81-99 [facility] Work Phone: [phone] Erythrocyte sedimentation ra wade 05-28-2021 ESR (Bld) [Velocity] 15 mm/h 0-30 [facility] Work Phone: [phone] Hematocrit Auto (Bld) [Volum e fraction]on 05-28-2021 Hematocrit (Bld) [Volume fraction] 40.0 % 37-47 [facility] Work Phone: [phone] Laboratory - Chemistry and C hemistry - challengeon 05-28-2021 ALP [Catalytic activity/Vol] 75 U/L 45-117 [facility] Work Phone: [phone] ALT [Catalytic activity/Vol] 24 U/L 13-56 [facility] Work Phone: [phone] CO2 [Moles/Vol] 26.0 mmol/L 21.0-32.0 [facility] Work Phone: Globulin (S) [Mass/Vol] 4.4 g/dL 2.2-4.2 [facility] Work Phone: Urea nitrogen/Creatinine [Mass ratio] 36.5 mg/mg 10-20 [facility] Work Phone: Laboratory - Hematology and Cell countson 05-28-2021 Basophils/100 WBC (Unsp spec) 0.9 % 0-1 [facility] Work Phone: [phone] Erythrocyte distribution width (RBC) [Entitic vol] 51.4 fL 35.1-43.9 [facility] Work Phone: [phone] Erythrocyte distribution width (RBC) [Ratio] 14.8 % 11.6-14.6 [facility] Work Phone: [phone] Immature granulocytes/100 WBC (Bld) 0.300 % 0.0-0.9 [facility] Work Phone: [phone] Comment on above: IG% - Immature Granu locytes (promyelocytes, myelocytes and metamyelocytes) > 1% indicates that a LEFT SHIFT is Present. MCH (RBC) [Entitic mass] 31.0 pg 27.0-32.0 [facility] Work Phone: [phone] Neutrophils/100 WBC (Bld) 55.4 % 47-70 [facility] Work Phone: [phone] Nucleated RBC/100 WBC (Bld) [Ratio] 0 % 0-5 [facility] Work Phone: [phone] MCHC Auto (RBC) [Mass/Vol]on 05-28-2021 MCHC (RBC) [Mass/Vol] 33.3 g/dL 32-36 [facility] Work Phone: No Panel Informationon 05-28 Estimated GFR (MDRD) Amer 116 mL/min >60 [facility] Work Phone: [phone] Comment on above: GFR Calc Estimated GFR (MDRD) Non-Af Amer 96 mL/min >60 [facility] Work Phone: [phone] Comment on above: Non- GFR Calc Platelets bldon 05-28-2021 Platelets (Bld) [#/Vol] 221 10*3/uL 150-450 [facility] Work Phone: [phone] Serum or plasma C reactive p rotein measurement (mass/volume)on 05-28-2021 CRP [Mass/Vol] 4.87 mg/L 0.0-3.0 [facility] Work Phone: Comment on above: C-Reactive Protein ( CRP) provides useful information for thediagnosis, therapy and monitoring of inflammatory processesand associated diseases. For the evaluation of Relative Riskfor Cardiovascular Disease, a High Sensitivity CRP (HSCRP)should be ordered. Serum or plasma albumin tammie urement (mass/volume)on 05-28-2021 Albumin [Mass/Vol] 2.8 g/dL 3.2-5.0 [facility] Work Phone: Serum or plasma albumin/glob ulin mass ratioon 05-28-2021 Albumin/Globulin [Mass ratio] 0.6 {ratio} 0.9-2.4 [facility] Work Phone: Serum or plasma calcium tammie urement (mass/volume)on 05-28-2021 Calcium [Mass/Vol] 8.9 mg/dL 8.5-10.1 [facility] Work Phone: Serum or plasma creatinine m easurement (mass/volume)on 05-28-2021 Creatinine [Mass/Vol] 0.66 mg/dL 0.55-1.02 [facility] Work Phone: Comment on above: The validity of the calculated GFR & GFRAA in patients over 70 years has not been determined. Clinical correlation is essential. Serum or plasma urea nitroge n measurement (mass/volume)on 05-28-2021 Urea nitrogen [Mass/Vol] 24 mg/dL 7-18 [facility] Work Phone: Thin prep Papanicolaou smear with manual screeningon 05-28-2021 Thin prep Papanicolaou smear with manual screening 22 U/L 15-37 [facility] Work Phone: Thin prep Papanicolaou smear with manual screening 7 5-15 [facility] Work Phone: CNPMuna 02-28-[address] [facility] Telephone ([facility]PRAD) PATRICKCHARLIE Rodríguez ([id number]) 1955 F Date Time Provider Department 02/28/21 KELVIN ESPINO During your visit today, we recorded the following information about you: Kelvin Espino MD 02/28/2021 1:54 PM Addendum Call from [facility] ([facility] from [facility]). Pt has developed a faint rash [...] pain Date Reviewed: 01/08/2021 Reviewed by: Klaudia Winchester, JENN - Fully Assessed Reason for Visit: Patient Question [7896] Prescriptions as of 02/28/2021 - oxyCODONE-acetaminoph en [...] daily. - COMPOUNDED PRESCRIPTION Power Mobility Device "scooter". Face to face evaluation 12/30/2018 Diagnosis: (T84.018S, [...] use [Z79.891] 0 (more content not included)... Normal [facility] CTA CHEST W WO CONTRASTOrder ed By: Nehal Madden on 01-15-2021 Patient Name: CHARLIE NGUYEN Computed Tomography ACCESSION EXAM DATE/TIME PROCEDURE ORDERING PROVIDER [id number] 01/15/2021 14:48 EDT CTA Chest w/ + w/o [id number] Araseli SANCHEZ CPT code 20249 Q9967 Reason For Exam (CTA Chest w/ [...] were concurrently generated by me on the [employer] workstation to better visualize gross vascular anatomy. [...] Phone: [facility], [facility] Incoming Radiology Results From [facility] - 01/15/2021 3:29 PM EDT Patient Name: CHARLIE NGUYEN Computed Tomography ACCESSION EXAM DATE/TIME PROCEDURE ORDERING PROVIDER [id number] 01/15/2021 14:48 EDT CTA Chest w/ + w/o [id number] -CHANO, Contrast NEHAL CPT code 20366 Q9967 Reason For Exam (CTA Chest w/ [...] were concurrently generated by me on the [employer] workstation to better visualize gross vascular anatomy. [...] and Time: 01/15/2021 3:29 [facility] Work Phone: [phone] [facility] Work Phone: Comprehensive Metabolic Pane l w/ Reflex to MGOrdered By: Nehal Madden on 01-15-2021 EGFR IF NonAfrican Peruvian >90.0 >60 mL/min [facility] Work Phone: Comment on above: KDIGO [...] 23.0 - 27.0 mmol/L [facility] Work Phone: Albumin [Mass/Vol] 3.7 g/dL 3.5 - 5.0 g/dL [facility] Work Phone: [phone] ALP (Bld) [Catalytic activity/Vol] 100 U/L 38 - 126 U/L [facility] Work Phone: [phone] ALT [Catalytic activity/Vol] 11 U/L 0 - 34 U/L [facility] Work Phone: [phone] Comment on above: The ALT test is perf ormed by an updated assay method. Please note that the reference intervals have been changed and are now sex specific. Anion gap [Moles/Vol] 5 mmol/L 3 - 13 mmol/L [facility] Work Phone: [phone] AST [Catalytic activity/Vol] 28 U/L 15 - 46 U/L [facility] Work Phone: [phone] Bilirubin [Mass/Vol] 0.4 mg/dL 0.2 - 1 .3 mg/dL [facility] Work Phone: [phone] Calcium [Mass/Vol] 10.2 mg/dL 8.4 - 10. 4 mg/dL [facility] Work Phone: [phone] Chloride [Moles/Vol] 104 mmol/L 98 - 10 7 mmol/L [facility] Work Phone: [phone] CO2 [Moles/Vol] 29 mmol/L 22 - 30 mmol/L [facility] Work Phone: [phone] Creatinine [Mass/Vol] 0.62 mg/dL 0.52 - 1.25 mg/dL [facility] Work Phone: [phone] Free PSA/Total PSA [Mass fraction] 7.4 g/dL 6.3 - 8.2 g/dL [facility] Work Phone: GFR/1.73 sq M.predicted among blacks MDRD (S/P/Bld) [Vol rate/Area] mL/min/{1.73_m2} >60 mL/min [facility] Work Phone: [phone] Glucose [Mass/Vol] 103 mg/dL High 70 - 100 mg/dL [facility] Work Phone: [phone] Lipase [Catalytic activity/Vol] 86 U/L 23 - 300 U/L [facility] Work Phone: [phone] Potassium [Moles/Vol] 4.2 mmol/L 3.5 - 5.1 mmol/L [facility] Work Phone: [phone] Sodium [Moles/Vol] 139 mmol/L 135 - 145 mmol/L [facility] Work Phone: Urea nitrogen (BldV) [Mass/Vol] 18 mg/dL 7 - 20 mg/dL [facility] Work Phone: [phone] Lactate [Moles/Vol] 1.1 mmol/L 0.7 - 2. 0 mmol/L [facility] Work Phone: [phone] Hemoglobin.gastrointesti nal spec 1 Ql (Stl) 11.8 g/dL 11.7 - 16.0 g/dL [facility] Work Phone: [phone] Laboratory - Hematology and Cell countsOrdered By: Nehal Madden on 01-15-2021 Basophils/100 WBC (Bld) 0.2 % 0.0 - 2.0 % [facility] Work Phone: [phone] Eosinophils (Bld) [#/Vol] 0.6 10*3/uL High 0.0 - 0.5 10*3/uL [facility] Work Phone: 1 Eosinophils/100 WBC (Bld) 4.0 % 1.0 - 6.0 % [facility] Work Phone: Granulocytes/100 WBC (Bld) 84.8 % High 40.0 - 80.0 % [facility] Work Phone: [phone] Hematocrit (Bld) [Volume fraction] 35.0 % 35.0 - 47.0 % [facility] Work Phone: Lymphocytes (Bld) [#/Vol] 0.6 10*3/uL Low 1.0 - 4.3 10*3/uL [facility] Work Phone: [phone] Lymphocytes/100 WBC (Bld) 4.6 % Low 20.0 - 40.0 % [facility] Work Phone: [phone] MCH (RBC) [Entitic mass] 32.3 pg 26. 0 - 34.0 pg [facility] Work Phone: MCHC (RBC) [Mass/Vol] 33.9 % 32.0 - 36.0 % [facility] Work Phone: 1 MCV (RBC) [Entitic vol] 95.3 fL 79.0 - 98.0 fL [facility] Work Phone: Monocytes (Bld) [#/Vol] 0.9 10*3/uL High 0.0 - 0.8 10*3/uL [facility] Work Phone: Monocytes/100 WBC (Bld) 6.4 % 2.0 - 10.0 % [facility] Work Phone: 1 Platelet distribution width (Bld) [Ratio] 15.0 % High 11.5 - 14.5 % [facility] Work Phone: Platelet mean volume (Bld) [Entitic vol] 9.3 fL 7.4 - 10.4 fL [facility] Work Phone: Platelets (Bld) [#/Vol] 255 10*3/uL 140 - 440 10*3/uL [facility] Work Phone: RBC (Bld) [#/Vol] 3.67 10*6/uL Low 3.80 - 5.2 0 10*6/uL [facility] Work Phone: WBC (Bld) [#/Vol] 14.0 10*3/uL High 3.6 - 10.7 10*3/uL [facility] Work Phone: No Panel InformationOrdered By: Nehal Madden on 01-15-2021 Procalcitonin 1.67 ng/mL High 0.00 - 0.09 ng/mL [facility] Work Phone: Interpretation and review of laboratory results Abnormal [facility] Work Phone: Test Performed by [employer] [employer] [address] [place], [place] [address] [facility] Work Phone: [facility] Work Phone: Test Performed by [employer] [address] [place], [place] [address] [facility] Work Phone: [facility] Work Phone: Absolute Baso # 0.0 10*3/uL 0.0 - 0.2 10*3/uL [facility] Work Phone: 1 Absolute Neut # 11.8 10*3/uL High 1.8 - 7.0 10*3/uL [facility] Work Phone: 1 POCT VenousOrdered By: Sera Madden on 01-15-2021 Base Excess, Maikel 3.4 mmol/L High -3.0 - 3.0 mmol/L [facility] Work Phone: [phone] [facility] Work Phone: Comment on above: Performed by CLIA ID : [id number] [employer] [place], [place] Interpretation and review of laboratory results Abnormal [facility] Work Phone: pCO2, Maikel 52.9 mm[Hg] 40.0 - 55.0 mm[Hg] [facility] Work Phone: pH, Maikel 7.361 [facility] Work Phone: pO2, Maikel 62.4 mm[Hg] High 30.0 - 50.0 mm[Hg] [facility] Work Phone: TC02 (Calc), Maiekl 31.5 mmol/L High 24.0 - 28.0 mmol/L [facility] Work Phone: 1 Test Performed by [employer] [address] [place] [address] [facility] Work Phone: [facility] Work Phone: ProcalcitoninOrdered By: Linda Madden on 01-15-2021 Interpretation See Below [facility] Work Phone: Comment on above: PCT <0.50 = Low risk of severe sepsis and/or septic shock. PCT >2.00 = High risk of severe sepsis and/or septic shock. Interpretation and review of laboratory results Abnormal [facility] Work Phone: Test Performed by [employer] [address] [place] [address] [facility] Work Phone: 1 [facility] Work Phone: Respiratory Panel, Molecular , with COVID-19 (Restricted: peds pts or suitable admitted adults)Ordered By: Nehal Madden on 01-15-2021 Respiratory Panel Molecular, with COVID NEGATIVE: No targets were detected by the [employer] Upper Respiratory Pathogens PCR Panel. _ Expected Result: Not Detected The [employer] Upper Respiratory Pathogens PCR Panel can detect [...] management decisions. This assay was developed by [email or web address] and distributed under an Emergency Use Authorization (EUA) granted by the FDA for the qualitative detection of SARS-CoV-2 nucleic acid. Provider and patient fact sheets can be found at https://www.fda.gov/m edia/262694/download and https://www.fda.gov/m edia/467485/download. [facility] Work Phone: Test Performed by [employer] [address] [address] [facility] Work Phone: [phone] [facility] Work Phone: Vital signsOrdered By: Sera Madden on 01-15-2021 Oxygen saturation in Blood 90.1 % High 60.0 - 80.0 % [facility] Work Phone: XR CHEST PORTABLEOrdered By: Nehal Madden on 01-15-2021 Patient Name: CHARLIE NGUYEN Diagnostic Radiology ACCESSION EXAM DATE/TIME PROCEDURE ORDERING PROVIDER [id number] 01/15/2021 12:53 EDT CR Chest Portable [id number] -NEHAL MADDEN CPT code 63906 Reason For Exam (CR Chest Portable) sepsis [...] Phone: [facility], [facility] Incoming Rad[facility] Results From [facility] - 01/15/2021 1:01 PM EDT Patient Name: CAHRLIE NGUYEN Diagnostic Radiology ACCESSION EXAM DATE/TIME PROCEDURE ORDERING PROVIDER [id number] 01/15/2021 12:53 EDT CR Chest Portable [id number] -NEHAL MADDEN CPT code 93801 Reason For Exam (CR Chest Portable) sepsis [...] and Time: 01/15/2021 1:00 pm Signed by: SUGANO, MD, RED R Transcribed Date and Time: 01/15/2021 1:01 [facility] Work Phone: [facility] Work Phone: CULT/STAIN - AEROBIC AND GAYLA EROBICon 01-11-2021 CULT/STAIN - AEROBIC AND ANAEROBIC CULT./ST. BACTERIA --> Status: F No growth at 3 days. CULTURE ANAEROBE --> Status: F No growth of anaerobes at 5 days. Normal [facility] Comment on above: Performed By: #### C Anitra CORONA/PADILLA ####[facility] [id number] [place], [place] CULTURE BLOODon 01-11-2021 Microscopic examination of blood, culture CULTURE BLOOD --> Status: F No growth at 5 days. Normal [facility] Comment on above: Performed By: #### C /BLD ####[facility] [address] [place], [place] CULTURE BLOOD (Two)on 2020 Microscopic examination of blood, culture CULTURE BLOOD (Two) --> Status: F No growth at 5 days. [facility] Comment on above: Performed By: #### C /BLT ####[facility] [address] [place], [place] C-Reactive Proteinon 021 C-Reactive Protein 5.1 mg/dL High 0.0-0.9 [facility] CASE MANAGEMon 01-08-2021 CASE MANAGEM HNO ID: [id number] Author: Trish Gambino RN Service: Case Management [...] meeting these needs: pt to dc to [facility] E[facility] HANDOFF COMMUNICATION: Handoff to: Primary Care Physician Primary Care Physician Name/Phone: Dr. Oates TRANSPORTATION ARRANGEMENTS: Transportation Arrangements: Ambulance/[facility] Transportation Agency and Phone #:: [facility] [phone] Date of Trip: 01/08/21 Time of Trip: 1630 Type of Service: BLS Non-emergency Is Patient Medicaid Pending?: No Discussion of financial coverage occurred with: Patient Cardiovascular Lab Director Location: [place] Destination: [facility] Financial Care Management Responsibility: None ADDITIONAL CONTACT RESOURCES: none Discharge Information Row Name Admission (Current) from 01/06/[address]/[facility] Nursing [facility] Agency [facility] Caregiver is ready, willing and able to meet the patient's needs as recommended by the inter-professional team:: No Does the patient have an acute stroke diagnosis, or has the patient had a stroke during this admission?: No Needs Prior to Discharge: Ready for Discharge Transportation Arrangements: Ambulance/[facility] Transportation Agency and Phone #:: [facility] [phone] Date of Trip: 01/08/21 Time of Trip: 1630 Type of Service: BLS Non-emergency Is Patient Medicaid Pending?: No Discussion of financial coverage occurred with: Patient Cardiovascular Lab Director Location: [place] Destination: [facility] Financial Care Management Responsibility: None Patient is medically cleared for discharge today to return to [facility]. BLS transport arranged through [facility] for 1630. Bedside nurse aware, DC packet left at nurse's station. Patient aware of dc plans and is agreeable. SIGNATURE: Trish Gambino RN PATIENT NAME: Charlie Nguyen DATE: January 08, 2021 TIME: 12:31 PM PAGER/CONTACT #: [phone] Normal [facility] CBCon 01-08-2021 Absolute nRBC <0.01 Normal <0.01 [facility] Erythrocyte distribution width (RBC) [Ratio] 15.0 % Normal 11.5-15.0 [facility] Hematocrit (Bld) [Volume fraction] 33.9 % Low 36.0-46.0 [facility] Hemoglobin (Bld) [Mass/Vol] 10.6 g/dL Low 11.5-15.5 [facility] MCH 30.7 pG Normal 26.0-34.0 [facility] MCHC (RBC) [Mass/Vol] 31.3 g/dL Normal 30.5-36.0 [facility] MCV (RBC) [Entitic vol] 98.3 fL Normal 80.0-100.0 [facility] Platelet mean volume (Bld) [Entitic vol] 10.9 fL Normal 9.0-12.7 [facility] Platelets (Bld) [#/Vol] 147 10*3/uL Low 150-400 [facility] RBC (Bld) [#/Vol] 3.45 10*6/uL Low 3.90-5.20 [facility] WBC (Bld) [#/Vol] 5.81 10*3/uL Normal 3.70-11.00 [facility] CNDSon 01-08-2021 CN HNO ID: [id number] Author: Jasen Ewing DO Service: Orthopaedic Surgery Author Type: Resident Type: Discharge Summary Filed: 01/08/2021 8:47 PM Note Text: Attestation signed by Kurits Danielson MD at 01/10/2021 9:24 AM I [...] stay. She was stable for discharge to Nursing Home Facility. Complete and comprehensive discharge instructions were [...] Patient Condition @ Discharge: Stable Discharge Disposition: Nursing Home Facility PHYSICAL EXAM (CHOOSE FIRST BLANK IF [...] ESR, CRP every Thursday faxed to Sanjana Traango at [phone] vancomycin (VANCOCIN) 1.25 g Inject 1.25 g intravenously q 24 HR. Qty: 9000 mL Refills: 0 Comments: Needs CBC w/ diff, CMP, vancomycin trough, ESR, CRP every Thursday faxed to Sanjana Tarango at [phone] pregabalin (LYRICA) 100 mg Take 100 mg [...] mouth twice daily. (more content not included)... Normal [facility] CONSULTon 01-08-2021 CONSULT HNO ID: [id number] Author: Milton Fernandez MD Service: General Internal [...] scheduled. SW for dc planning-plan dc to [facility] Await pending labs Thank you for allowing [...] Discussed with Dr Fernandez SIGNATURE: Jan Fernandez APRN.ENERGY DERIVATIVES TRADER DATE: January 08, 2021 TIME: 6:11 AM I have reviewed the above note obtained and documented by the RURAL CARRIER ASSOCIATE/PA. I have discussed the case and management of the patient's care. The following comments revise or confirm relevant bey components of the note. Milton Fernandez MD 10:16 PM [facility] NURSING PROGon 08--2021 NURSING PROG HNO ID: [id number] Author: Turner Patten RN Service: Nursing Author Type: Registered Nurse Type: Nursing Progress Note Filed: 01/08/2021 3:01 PM Note Text: Nursing Progress Note Patient Name: Charlie Nguyen Patient Location: [place] [address] [id number] Daily Note:Assessment as charted. Patient denies any chest pain or shortness of breath. Goal for the day is to increase mobility and control pain. Bed in low position, bed alarm on, call light in reach. Will continue to monitor. 1459- Report called to [facility]. This note was completed by: Turner Patten [facility] NURSING PROG HNO ID: [id number] Author: Mora Thayer RN Service: Nursing Author Type: Registered Nurse Type: Nursing Progress Note Filed: 01/08/2021 6:58 AM Note Text: Nursing Progress Note Patient Name: Charlie Nguyen Patient Location: [place] [address] [id number] Daily Note:0428 Single lumen PICC with total occlusion. Cath eric injection started. 0450 Cath eric completed. Line clamped and labeled, Do Not Flush, cathflo in place. Will return in 2 hours to attempt to aspirate 0650 Attempted to aspirate from PICC without success. CJonah Legg ENERGY DERIVATIVES TRADER here, states will order second dose of cathflo This note was completed by: Mora Thayer [facility] Renal Function Panelon 01-08 Albumin [Mass/Vol] 3.1 g/dL Low 3.9-4.9 [facility] Anion gap [Moles/Vol] 8 mmol/L Low 9-18 [facility] Calcium [Mass/Vol] 8.1 mg/dL Low 8.5-10.2 [facility] Chloride [Moles/Vol] 104 mmol/L Normal 97-105 [facility] CO2 [Moles/Vol] 25 mmol/L Normal 22-33 [facility] Creatinine [Mass/Vol] 0.68 mg/dL Normal 0.58-0.96 [facility] eGFR- Amer. >60 Normal [facility] eGFR-All Other Races >60 Normal [facility] Comment on above: Result Comment: eGFR (Estimated [...] GFR. Glucose [Mass/Vol] 109 mg/dL High 74-99 [facility] Phosphate [Mass/Vol] 2.6 mg/dL Low 2.7-4.8 [facility] Potassium [Moles/Vol] 3.8 mmol/L Normal 3.7-5.1 [facility] Sodium [Moles/Vol] 137 mmol/L Normal 136-144 [facility] Urea nitrogen [Mass/Vol] 14 mg/dL Normal 7-21 [facility] THERAPY NTon 01-08-2021 THERAPY NT HNO ID: [id number] Author: Kris Lamb OT/L Service: Occupational Therapy Author Type: Occupational Therapist Type: Therapy (PT/OT/Speech/Resp) Filed: 01/08/2021 1:13 PM Note Text: Occupational Therapy Evaluation SERVICE DATE: 01/08/2021 SERVICE TIME: 1045 to 1110 ROOM: [place] [address] Recommended Discharge Disposition: ECF Recommended Discharge Disposition [...] Care ([facility]) Assistance Available: 24 Hour Entry To Home: [...] daily living (ADL);Reduced mobility-other Interventions Provided: Evaluation;Self Penitentiary Management (02646) $ Evaluation-Low (31725) Billed Units: 1 unit Self Penitentiary Management (84027) Treatment Minutes: 10 $ Self Penitentiary Management (35033) Billed Units: 1 unit Training AND education provided in: Benefits of in-hospital mobility, Bed mobility, Discharge planning, Fu (more content not included)... [facility] THERAPY NT HNO ID: [id number] Author: Janis Palafox PT Service: Physical Therapy Author Type: Physical Therapist Type: Therapy (PT/OT/Speech/Resp) Filed: 01/08/2021 1:10 PM Note Text: Physical Therapy Evaluation SERVICE DATE: 01/08/2021 SERVICE TIME: 1121 to 1205 ROOM: [place] [address] Recommended Discharge Disposition: Subacute/SNF Recommended Discharge Disposition Comments: pt opperating at new baseline with intermodal dispatcher hopes of working towards improved mobility out [...] Management;Meals Prior Functional Level Comments: reporting from [facility]; reporting pivot transfers only to WC, [...] able to maintain balance while turning head/trunk -HLM: 4: Move to chair / commode [...] Skilled Need Interventions Provided: Evaluation;Therapeuti c Activity (33649) $ Evaluation-Low (16665) Billed Units: 1 unit Therapeutic Activity (14570) Treatment Minutes: 25 $ Therapeutic Activity (67453) Billed Units: 2 units Training AND education [...] January 08, 2021 TIME: 1:10 PM Normal [facility] Vancomycinon 01-08-2021 Vancomycin 15.9 ug/mL Normal 10.0-20.0 [facility] Comment on above: Result Comment: Refe rence ranges and high/low indicator flags are provided as general guidelines only. The treating physician must determine appropriate target levels/dosing based on the specific clinical situation. 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 Discharged to rehab on Vanco/Cefepime thru 01/30/21. Now admitted with fever and increased right knee pain at SNF. Has been afebrile since admission. Synovial fluid [...] right knee. Kelvin Espino MD [facility] [phone] Normal [facility] Coronavirus 2019on SARS-CoV-2 (COVID-19) RNA TANVIR+probe Ql (Unsp spec) UPPER RESPIRATORY TRACT SWAB Normal [facility] Comment on above: Performed By: #### C OVID ####[facility] [place], [place] [phone] SARS-CoV-2 (COVID-19) RNA TANVIR+probe Ql (Unsp spec) Negative for COVID19 (SARS CoV2) by RT-PCR or equivalent method. Normal Negative for COVID19 (SARS CoV2) by RT-PCR or equivalent method. [facility] Comment on above: Result Comment: This test was developed and its performance characteristics determined by [facility] [place]. This test has been authorized by FDA under an Emergency Use Authorization (EUA). This test has been validated in accordance with the FDA's Guidance Document "Policy for Diagnostics Testing in Laboratories Certified to Perform High Complexity Testing under CLIA prior to Emergency use Authorization for Coronavirus Disease 2019 during the Public Health Emergency" issued on July 30, 2019. Test performed by [facility], [facility] [place], [address] [place], [place] [address]. Performed By: #### C OVID ####[place] [address] [place], [place] [phone] NURSING PROGon 01-07-2021 NURSING PROG HNO ID: [id number] Author: [address] RN Service: Nursing Author Type: Registered Nurse Type: Nursing Progress Note Filed: 01/08/2021 8:43 AM Note Text: Nursing Progress Note Patient Name: Charlie Nguyen Patient Location: [place] [address]-1 Daily Note: 1900 Assumed care of patient. [...] (Mora). 0650 VARN nurse returned to aspirate Cath-erci--иван minor CNP (Jan Fernandez) at bedside--2nd order of Cath eric to be placed--passed information to the on-coming day-shift nurse. This note was completed by: [address] [facility] NURSING PROG HNO ID: [id number] Author: Mariela Campa RN Service: ? Author Type: Registered Nurse Type: Nursing Progress Note Filed: 01/07/2021 9:42 AM Note Text: 01/07/2021 0600 Pt has really been sleeping all night. She can barely open her eyes but then she'll C/O the IV pump alarming. [facility] NURSING PROG HNO ID: [id number] Author: Turner Patten RN Service: Nursing Author Type: Registered Nurse Type: Nursing Progress Note Filed: 01/07/2021 11:59 AM Note Text: Nursing Progress Note Patient Name: Charlie Nguyen Patient Location: [place] [address] [address] Daily Note:Assessment as charted. Patient denies any chest pain or shortness of breath. Patient is lethargic. Goal for the day is to increase mobility and control pain. Bed in low position, bed alarm on, call light in reach. Will continue to monitor. This note was completed by: Turner Patten [facility] NURSING PROG HNO ID: [id number] Author: Mariela Campa RN Service: ? Author Type: Registered Nurse Type: Nursing Progress Note Filed: 01/07/2021 3:31 AM Note Text: 01/06/2021 2000 Assumed care of pt. She is oddly aggravated when you go into her room , julieta if it is frequently. 01/07/2021 0000 Assessment as charted. Sleeping soundly. [facility] ALLIED HEALTHon 01-06-2021 ALLIED HEALTH HNO ID: [id number] Author: RT Esther(Farideh) Service: Radiology Author Type: [employer] System Maintainer Type: Allied Health Filed: 01/06/2021 7:28 PM [...] RT Esther(R) January 06, 2021 7:28 PM [facility] ALLIED HEALTH HNO ID: [id number] Author: RT Lakisha(Farideh) Service: Radiology Author Type: [employer] System Maintainer Type: Allied Health Filed: 01/06/2021 10:26 AM [...] RT Lakisha(R) January 06, 2021 10:26 AM [facility] Blood Cultureon 01-06-2021 Bacteria identified Cx Nom (Bld) Sp. Request/Comment: - The blood culture bottles are underfilled. Adding volume lower or higher than the 8 to 10 mL per bottle, which is the manufacturers recommended volume, may adversely affect the recovery and/or detection of organisms. 3.0 CC Culture Result - No growth 5 days [facility] Comment on above: Performed By: #### B LCUL ####[facility] [place], [place] [phone] Bacteria identified Cx Nom (Bld) Sp. Request/Comment: - The blood culture bottles are underfilled. Adding volume lower or higher than the 8 to 10 mL per bottle, which is the manufacturers recommended volume, may adversely affect the recovery and/or detection of organisms. 0.1 CC Culture Result - No growth 5 days Normal [facility] Comment on above: Performed By: #### B LCUL ####[facility] [address] [place], [place] [phone] Body Fluid Cell Count with D ifferentialOrdered By: Nica Nolasco on 01-06-2021 Fluid Type SYNOVIAL [facility] Work Phone: [phone] Nucl Cell, Fluid 945 {cells}/uL [facility] Work Phone: [phone] Test Performed by [employer] [facility] [place] [address] [facility] Work Phone: [phone] [facility] Work Phone: [phone] Body Fluid CrystalOrdered By : Nica Nolasco on 01-06-2021 Crystals LM Nom (Urine sed) Negative [facility] Work Phone: [phone] Fluid Type Synovial [facility] Work Phone: [phone] Test Performed by [employer] [facility] [place] [address] [facility] Work Phone: [phone] [facility] Work Phone: [phone] C-Reactive Proteinon 021 C-Reactive Protein 7.9 mg/dL High 0.0-0.9 [facility] CBC and Differentialon 01-06 Abs Baso 0.00 k/uL Normal <0.11 [facility] Abs [place] 0.00 k/uL Normal <0.87 [facility] Abs Neut 3.46 k/uL Normal 1.45-7.50 [facility] ANC(includeSEG+BAND) 3.46 k/uL Normal [facility] Basophilic stippling LM Ql (Bld) Occasional Normal [facility] Basophils/100 WBC (Bld) 0.0 % Normal [facility] DTYPE Manual Diff Normal [facility] Eosinophils (Bld) [#/Vol] 0.85 10*3/uL High <0.46 [facility] Eosinophils/100 WBC (Bld) 15.0 % Normal [facility] Erythrocyte distribution width (RBC) [Ratio] 15.2 % High 11.5-15.0 [facility] Hematocrit (Bld) [Volume fraction] 40.5 % Normal 36.0-46.0 [facility] Hemoglobin (Bld) [Mass/Vol] 12.7 g/dL Normal 11.5-15.5 [facility] Left Shift Present Normal [facility] Lymphocytes (Bld) [#/Vol] 1.25 10*3/uL Normal 1.00-4.00 [facility] Lymphocytes/100 WBC (Bld) 22.0 % Normal [facility] Lymphocytes/100 WBC (Bld) 1.0 % Normal [facility] MCH 31.3 pG Normal 26.0-34.0 [facility] MCHC (RBC) [Mass/Vol] 31.4 g/dL Normal 30.5-36.0 [facility] MCV (RBC) [Entitic vol] 99.8 fL Normal 80.0-100.0 [facility] Monocytes/100 WBC (Bld) 0.0 % Normal [facility] Myelo% 1.0 % Normal [facility] Neutrophils/100 WBC (Bld) 61.0 % Normal [facility] Platelet Estimate Platelet estimate adequate Normal [facility] Platelet mean volume (Bld) [Entitic vol] 10.0 fL Normal 9.0-12.7 [facility] Platelets (Bld) [#/Vol] 193 10*3/uL Normal 150-400 [facility] Polychromasia Slight Normal [facility] RBC (Bld) [#/Vol] 4.06 10*6/uL Normal 3.90-5.20 [facility] Red Cell Morph SEE COMMENT Normal [facility] Comment on above: Result Comment: Unre markable WBC (Bld) [#/Vol] 5.67 10*3/uL Normal 3.70-11.00 [facility] CONSULTon 01-06-2021 CONSULT HNO ID: [id number] Author: Kelvin Espino MD Service: Infectious Disease Author Type: Physician Type: Consults Filed: 01/06/2021 4:21 PM Note Text: BRIEF ID CONSULT NOTE Pt seen and examined. Full note dictated. Impression 1. 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 Discharged on Cefepime/vanco thru 01/30/21 (6 weeks). -- now admitted with fever at SNF and worsening right knee pain. -- Sent to OSH where arthrocentesis was performed with 945 WBC. No cultures of synovial fluid, blood, or urine sent. Recommendation 1. Cont. Vanco and Cefepime for now. 2. Will send blood and urine cultures for completeness. 3. Await Ortho plan concerning knee. 4. Will follow. Kelvin Espino MD [facility] [phone] Normal [facility] CONSULT HNO ID: [id number] Author: Kelvin Espino MD Service: Infectious Disease Author Type: Physician Type: Consults Filed: 01/07/2021 8:17 AM Note Text: [facility] Consultation CHARLIE NGUYEN CSN#: [id number] PATIENT TYPE: LOCATION: [address] [place] [address] ATTENDING PHYSICIAN: KURTIS DANIELSON ORIGINATOR: Kelvin Espino [...] her rehab facility and was sent to [facility] on 01/05. She had an arthrocentesis performed at that time, which revealed 985 white cells. It does not appear that fluid was sent for Gram stain or culture. The patient was transferred to [facility]. She has been continued on her vancomycin and cefepime, and ID has been consulted. Of note, the patient has been afebrile since admission. She continues to complain of right knee pain and "burning." She otherwise denies shortness of breath, cough, [...] No cultures were performed upon arrival to [facility]. Chest x-ray showed no infiltrates. IMPRESSION Reported [...] g IV (more content not included)... Normal [facility] CONSULT HNO ID: [id number] Author: Milton Fernandez MD Service: General Internal [...] Rfl: 1 COMPOUNDED PRESCRIPTION, Power Mobility Device "scooter". Face to face evaluation 12/30/2018 Diagnosis: (T84.018S, [...] Disp: 1 D (more content not included)... [facility] CONSULT HNO ID: [id number] Author: Yoni Forrest DO Service: Orthopaedic Surgery [...] receiving vancomycin and cefepime. Knee aspiration at [facility] 985 total nucleated cells. NPO. Hold all AC for possible surgical intervention. Will discuss with [facility] orthopedic staff system consultant and update plan. SUBJECTIVE Ms. Nguyen is [...] peacefully upon entering room. She reported to [facility] ED where aspiration resulted in 985 total nucleated cells and she was then transferred to [place]. Last dose of eliquis 01/05 PM. Patient currently using a wheelchair. Past [...] (NaCl) 0.9% injecti (more content not included)... [facility] COVID and Resp PCR Panelon 0 01-06-2021 SARS-CoV-2 (COVID-19) RNA TANVIR+probe Ql (Unsp spec) COVID and Resp PCR Panel --> Status: F NEGATIVE: No targets were detected by the [employer] Upper Respiratory Pathogens PCR Panel. _ Expected Result: Not Detected The [employer] Upper Respiratory Pathogens PCR Panel can detect [...] management decisions. This assay was developed by [employer] and distributed under an Emergency Use Authorization (EUA) granted by the FDA for the qualitative detection of SARS-CoV-2 nucleic acid. Provider and patient fact sheets can be found at https://www.fda.gov/m edia/438078/download and https://www.fda.gov/m edia/155711/download. Respiratory Pathogens PCR Panel. _ Expected Result: Not Detected The [employer] Upper Respiratory Pathogens PCR Panel can detect [...] management decisions. This assay was developed by [employer] and distributed under an Emergency Use Authorization (EUA) granted by the FDA for the qualitative detection of SARS-CoV-2 nucleic acid. Provider and patient fact sheets can be found at https://www.fda.gov/m edia/676923/download and https://www.fda.gov/m edia/538989/download. Normal [facility] Comment on above: Performed By: #### B FRP2 ####[facility] [address] [place] [address] Cell Count,Body Fluidon Nucleated Cells 945 {cells}/uL Normal [facility] Comment on above: Performed By: #### D JASON BARROS, CRSTL #### [facility] [address] [place] [address] Fluid Type SYNOVIAL Normal [facility] Comment on above: Performed By: #### D JASON BARROS, CRSTL #### [facility] [address] [place] [address] Comp Metabolic Panelon 01-06 Albumin [Mass/Vol] 3.7 g/dL Low 3.9-4.9 [facility] ALP [Catalytic activity/Vol] 119 U/L Normal 34-123 [facility] ALT [Catalytic activity/Vol] 11 U/L Normal 7-38 [facility] Anion gap [Moles/Vol] 12 mmol/L Normal 9-18 [facility] AST [Catalytic activity/Vol] 27 U/L Normal 13-35 [facility] Bilirubin [Mass/Vol] 0.3 mg/dL Normal 0.2-1.3 [facility] Calcium [Mass/Vol] 8.2 mg/dL Low 8.5-10.2 [facility] Chloride [Moles/Vol] 105 mmol/L Normal 97-105 [facility] CO2 [Moles/Vol] 22 mmol/L Normal 22-33 [facility] Creatinine [Mass/Vol] 0.65 mg/dL Normal 0.58-0.96 [facility] eGFR- Amer. >60 Normal [facility] eGFR-All Other Races >60 Normal [facility] Comment on above: Result Comment: eGFR (Estimated [...] GFR. Glucose [Mass/Vol] 80 mg/dL Normal 74-99 [facility] Potassium [Moles/Vol] 4.4 mmol/L Normal 3.7-5.1 [facility] Protein [Mass/Vol] 7.4 g/dL Normal 6.3-8.0 [facility] Sodium [Moles/Vol] 139 mmol/L Normal 136-144 [facility] Urea nitrogen [Mass/Vol] 8 mg/dL Normal 7-21 [facility] Complete Urinalysison 2020 Appearance (U) Clear Normal Clear [facility] Comment on above: Result Comment: . Performed By: #### C UA2 ####[facility] [address] [place] [address] Bilirubin,Urine Negative Normal Negative [facility] Comment on above: Result Comment: . Performed By: #### C UA2 ####[facility] [address] [place] [address] Color (U) Colorless Normal Lt. Yellow [facility] Comment on above: Result Comment: . Performed By: #### C UA2 ####[place] [address] [place], [place] Glucose Ql (U) Normal Normal Normal (<70) [facility] Comment on above: Result Comment: . Performed By: #### C UA2 ####[place] [address] [facility], [place] Ketone,Urine Negative Normal Negative [facility] Comment on above: Result Comment: . Performed By: #### C UA2 ####[place] [address] [facility], [place] Leukocytes,Urine Negative Normal Negative [facility] Comment on above: Result Comment: . Performed By: #### C UA2 ####[place] [address] [place], [place] Nitrites,Urine Negative Normal Negative [facility] Comment on above: Result Comment: . Performed By: #### C UA2 ####[place] [address] [place], [place] Occult Blood,Urine Negative Normal Negative [facility] Comment on above: Result Comment: . Performed By: #### C UA2 ####[place] [address] [address] [place], [place] pH,Urine 5.5 Normal 5.0-8.0 [facility] Comment on above: Result Comment: . Performed By: #### C UA2 ####[address] [place], [place] Specific [place],Urine 1.007 Normal 1.005 - 1.030 [facility] Comment on above: Result Comment: . Performed By: #### C UA2 ####[address] [place], [place] Total Protein,Urine Negative Normal Negative [facility] Comment on above: Result Comment: . Performed By: #### C UA2 ####[place] [address] [place], [place] Urobilinogen,Urine Normal Normal Normal (0-1) [facility] Comment on above: Result Comment: . Performed By: #### C UA2 ####[facility] [address] [place] [address] Crystals,Body Fluidon 2020 Crystals LM Nom (Urine sed) Negative Normal [facility] Comment on above: Performed By: #### D IFBF, FLDCC, CRSTL #### [facility] [place] [place] [address] Fluid Type Synovial Normal [facility] Comment on above: Performed By: #### D IFBF, FLDCC, CRSTL #### [facility] [place] [place] [address] Differential, Body FluidOrde red By: Nica Nolasco on 01-06-2021 Differential Count 100 [facility] Work Phone: Eosinophils/100 WBC (Bld) 4 % [facility] Work Phone: Lymphocytes/100 WBC (Bld) 4 % [facility] Work Phone: Macrophage count 1 % [facility] Work Phone: Monocytes/100 WBC (Bld) 9 % [facility] Work Phone: Neutrophils/100 WBC (Bld) 82 % [facility] Work Phone: Test Performed by [facility], [facility] [place] [address] [facility] Work Phone: [employer] Work Phone: Differential,Body Fluidson 0 01-06-2021 Eosinophils/100 WBC (Bld) 4 % Normal [facility] Comment on above: Performed By: #### D IFBF, FLDCC, CRSTL ####[employer] [address] [place] [address] Lymphocytes/100 WBC (Bld) 4 % Normal [facility] Comment on above: Performed By: #### D IFBF, FLDCC, CRSTL ####[employer] [address] [place] [address] Macrophages 1 % Normal [facility] Comment on above: Performed By: #### D IFBF, FLDCC, CRSTL ####[facility] [address] [place] [address] Monocytes/100 WBC (Bld) 9 % Normal [facility] Comment on above: Performed By: #### D IFBF FLDCC, CRSTL ####[facility] [address] [place] [address] Neutrophils/100 WBC (Bld) 82 % Normal [facility] Comment on above: Performed By: #### D IFBF FLDCC, CRSTL ####[facility] [address] [facility] [address] Cells Counted for Diff 100 Normal [facility] Comment on above: Performed By: #### D IFJASON VEGA, CRSTL ####[facility] [address] [facility] [place] [address] HISTORY PHYSICALon HISTORY PHYSICAL HNO ID: [id number] Author: Yoni Forrest DO Service: Orthopaedic Surgery [...] receiving vancomycin and cefepime. Knee aspiration at [facility] 985 total nucleated cells. NPO. Hold all AC for possible surgical intervention. Will discuss with [facility] orthopedic staff system consultant and update plan. SUBJECTIVE Ms. Nguyen is [...] peacefully upon entering room. She reported to [facility] ED where aspiration resulted in 985 total nucleated cells and she was then transferred to [place]. Last dose of eliquis 8/7 PM. Patient currently using a wheelchair. Past [...] (SEROQUEL) 50 mg (more content not included)... [facility] NURSING PROGon 01-06-2021 NURSING PROG HNO ID: [id number] Author: Bambi Palmer RN Service: ? Author Type: Registered Nurse Type: Nursing Progress Note Filed: 01/06/2021 2:31 PM Note Text: Nursing Progress Note Patient Name: Charlie Nguyen Patient Location: [place] [address] [id number] Daily Note: 0755 Patient awake in bed, [...] This note was completed by: Bambi Palmer [facility] NURSING PROG O ID: [id number] Author: Jan Whitehaed RN Service: Nursing Author Type: Registered Nurse Type: Nursing Progress Note Filed: 01/06/2021 6:41 AM Note Text: Nursing Progress Note Patient Name: Charlie Nguyen Patient Location: [place] [address] [address]- Daily Note: 0400 Patient arrived to floor [...] This note was completed by: Jan Whitehead [facility] STAIN GRAMon 01-06-2021 STAIN GRAM STAIN GRAM --> Status: F Few polymorphonuclear cells/lpf. No organisms seen. No organisms seen. Normal [employer] Comment on above: Performed By: #### C Anitra CORONA/PADILLA ####[employer] [place] [address] UrinalysisOrdered By: Rabia Palomares on 01-06-2021 Appearance (U) Clear Clear NA [employer] Work Phone: [phone] Comment on above: . Bilirubin Urine Negative Negative mg/dL [facility] Work Phone: [phone] Comment on above: . Color (U) Colorless Lt. Yellow NA [facility] Work Phone: [phone] Comment on above: . Glucose, Ur Normal Normal (<70) mg/dL [facility] Work Phone: [phone] Comment on above: . Ketones Ql (U) Negative Negative mg/dL [facility] Work Phone: [phone] Comment on above: . LEUKOCYTES, UA Negative Negative Simon/uL [facility] Work Phone: [phone] Comment on above: . Nitrite, Urine Negative Negative NA [facility] Work Phone: [phone] Comment on above: . Occult Blood,Urine Negative Negative mg/dL [facility] Work Phone: [phone] Comment on above: . pH (U) 5.5 [pH] [facility] Work Phone: [phone] Comment on above: . Specific [place], Urine 1.007 S [facility] Work Phone: [phone] Comment on above: . Total Protein, Urine Negative Negativ e mg/dL [facility] Work Phone: [phone] Comment on above: . Urobilinogen, Urine Normal Normal ( 0-1) mg/dL [employer] Work Phone: [phone] Comment on above: . Test Performed by [employer] [employer] [address] [place] [address] [employer] Work Phone: [phone] [employer] Work Phone: [phone] XR CHEST 1V FRONTAL PORTon 0 01-06-2021 [...] Jan 06 2021 10:51AM EST [id number] N [facility] XR KNEE 2V AP/LAT RTon 01-06 XR [...] Jan 06 2021 7:48PM EST [id number] Normal [facility] C-REACTIVE PROTEINOrdered By : Kian Palomares on 01-05-2021 CRP [Mass/Vol] 64.3 mg/L High 0.0 - 6.0 mg/L [employer] Work Phone: [phone] Comment on above: . C-Reactive Proteinon CRP [Mass/Vol] 64.3 mg/L High 0.0-6.0 [employer] [facility] Comment on above: Result Comment: . Performed By: #### C RP2, PCAL, CMP3M, LIPA4, HEMDF, ESR #### [facility] [address] [place] [address] CBC auto differentialOrdered By: Kian Palomares on 01-05-2021 Absolute Baso # 0.0 10*3/uL 0.0 - 0.2 10*3/uL [employer] Work Phone: [phone] Absolute Neut # 4.3 10*3/uL 1.8 - 7.0 10*3/uL [employer] Work Phone: [phone] Hemoglobin.gastrointesti nal spec 1 Ql (Stl) 11.3 g/dL Low 11.7 - 16.0 g/dL [employer] Work Phone: [phone] MCHC (RBC) [Mass/Vol] 32.9 % 32.0 - 36.0 % [employer] Work Phone: [phone] Platelet distribution width (Bld) [Ratio] 15.0 % High 11.5 - 14.5 % [employer] Work Phone: [phone] CR Chest Portableon 01-06-20 CR Chest Portable Patient Name: CHARLIE NGUYEN Diagnostic Radiology ACCESSION EXAM DATE/TIME PROCEDURE ORDERING PROVIDER [id number] 01/05/2021 20:28 EDT CR Chest Portable [id number] BLACKMON CPT code 77421 Reason For Exam (CR Chest Portable) sepsis [...] Transcribed Date and Time: 01/05/2021 8:49 Normal [facility] CR Knee 3 Views Righton CR Knee 3 Views Right Patient Name: CHARLIE FARNSWORTH Diagnostic Radiology ACCESSION EXAM DATE/TIME PROCEDURE ORDERING PROVIDER [id number] 01/05/2021 20:28 EDT CR Knee 3 Views Right [id number] KIAN SILVA CPT code 21232 Reason For Exam (CR Knee 3 Views [...] Transcribed Date and Time: 01/05/2021 8:45 Normal [facility] CTA Chest W WO (PE study)Ord ered By: Kian Palomares on 01-05-2021 Patient Name: CHARLIE NGUYEN Computed Tomography ACCESSION EXAM DATE/TIME PROCEDURE ORDERING PROVIDER [id number] 01/05/2021 22:12 EDT CTA Chest w/ + w/o [id number] Araseli SILVA CPT code 66470 Q9967 Reason For Exam (CTA Chest w/ [...] Time: 01/05/2021 10:19 [facility] Work Phone: Rodolfo, Gayea Incoming Radiology Results From [facility] - 01/05/2021 10:34 PM EDT Patient Name: CHARLIE NGUYEN Computed Tomography ACCESSION EXAM DATE/TIME PROCEDURE ORDERING PROVIDER [id number] 01/05/2021 22:12 EDT CTA Chest w/ + w/o [id number] Araseli SILVA CPT code 88076 Q9967 Reason For Exam (CTA Chest w/ [...] and Time: 01/05/2021 10:19 [facility] Work Phone: [facility] Work Phone: CTA Chest w/ + w/o Contrasto n 01-05-2021 CTA Chest w/ + w/o Contrast Patient Name: CHARLIE NGUYEN [facility]#: [id number] Computed Tomography ACCESSION EXAM DATE/TIME PROCEDURE ORDERING PROVIDER [id number] 01/05/2021 22:12 EDT CTA Chest w/ + w/o [id number] -Araseli PALOMARES CPT code 44282 Q9967 Reason For Exam (CTA Chest w/ [...] Transcribed Date and Time: 01/05/2021 10:19 Normal [facility] Comp Panel with Mg Reflexon 01-05-2021 ALT [Catalytic activity/Vol] 12 U/L Normal 0-34 [facility] Comment on above: Result Comment: The ALT test is performed by an updated assay method. Please note that the reference intervals have been changed and are now sex specific. Performed By: #### C RP2, PCAL, CMP3M, LIPA4, HEMDF, ESR #### [facility] [address] [place] [address] Calcium [Mass/Vol] 8.2 mg/dL Low 8.4-10.4 [facility] Comment on above: Performed By: #### C RP2, PCAL, CMP3M, LIPA4, HEMDF, ESR #### [facility] [address] [place] [address] Glucose [Mass/Vol] 109 mg/dL High 70-100 [facility] Comment on above: Performed By: #### C RP2, PCAL, CMP3M, LIPA4, HEMDF, ESR #### [facility] [address] [place] [address] Urea nitrogen [Mass/Vol] 16 mg/dL Normal 7-20 [facility] Comment on above: Performed By: #### C RP2, PCAL, CMP3M, LIPA4, HEMDF, ESR #### [facility] [address] [place], [place] ALP [Catalytic activity/Vol] 108 U/L Normal 38-126 [facility] Comment on above: Performed By: #### C RP2, PCAL, CMP3M, LIPA4, HEMDF, ESR #### [address] [place], [place] Anion gap [Moles/Vol] 5 mmol/L Normal 3-13 [facility] Comment on above: Performed By: #### C RP2, PCAL, CMP3M, LIPA4, HEMDF, ESR #### [address] [address] [place], [place] AST [Catalytic activity/Vol] 52 U/L High 15-46 [facility] Comment on above: Performed By: #### C RP2, PCAL, CMP3M, LIPA4, HEMDF, ESR #### [address] [place], [place] Bilirubin [Mass/Vol] 0.4 mg/dL Normal 0.2-1.3 [facility] Comment on above: Performed By: #### C RP2, PCAL, CMP3M, LIPA4, HEMDF, ESR #### [address] [address] [place], [place] CO2 [Moles/Vol] 23 mmol/L Normal 22-30 [facility] Comment on above: Performed By: #### C RP2, PCAL, CMP3M, LIPA4, HEMDF, ESR #### [place] [place], [place] Creatinine [Mass/Vol] 0.83 mg/dL Normal 0.52-1.25 [facility] Comment on above: Performed By: #### C RP2, PCAL, CMP3M, LIPA4, HEMDF, ESR #### [address] [address] [place], [place] GFR/1.73 sq M.predicted among blacks MDRD (S/P/Bld) [Vol rate/Area] 86.0 mL/min/{1.73_m2} Normal >[address] [facility] Comment on above: Performed By: #### C RP2, PCAL, CMP3M, LIPA4, HEMDF, ESR #### [address] GFR/1.73 sq M.predicted among non-blacks MDRD (S/P/Bld) [Vol rate/Area] 74.2 mL/min/{1.73_m2} Normal >[address] [facility] Comment on above: Result Comment: KDIG [...] RP2, PCAL, CMP3M, LIPA4, HEMDF, ESR #### [address] Protein [Mass/Vol] 6.9 g/dL Normal 6.3-8.2 [facility] Comment on above: Performed By: #### C RP2, PCAL, CMP3M, LIPA4, HEMDF, ESR #### [address] Potassium [Moles/Vol] 4.3 mmol/L Normal 3.5-5.1 [facility] Comment on above: Performed By: #### C RP2, PCAL, CMP3M, LIPA4, HEMDF, ESR #### [address] Albumin [Mass/Vol] 3.4 g/dL Low 3.5-5.0 [facility] Comment on above: Performed By: #### C RP2, PCAL, CMP3M, LIPA4, HEMDF, ESR #### [facility] [address] [place], [place] Chloride [Moles/Vol] 105 mmol/L Normal 98-107 [facility] Comment on above: Performed By: #### C RP2, PCAL, CMP3M, LIPA4, HEMDF, ESR #### [facility] [address] [place], [place] Sodium [Moles/Vol] 132 mmol/L Low 135-145 [facility] Comment on above: Performed By: #### C RP2, PCAL, CMP3M, LIPA4, HEMDF, ESR #### [facility] [address] [place], [place] Comprehensive Metabolic Pane l w/ Reflex to MGOrdered By: Kian Palomares on 01-05-2021 Albumin [Mass/Vol] 3.4 g/dL Low 3.5 - 5.0 g/dL [facility] Work Phone: [phone] ALP (Bld) [Catalytic activity/Vol] 108 U/L 38 - 126 U/L [facility] Work Phone: [phone] ALT [Catalytic activity/Vol] 12 U/L 0 - 34 U/L [facility] Work Phone: [phone] Comment on above: The ALT test is perf ormed by an updated assay method. Please note that the reference intervals have been changed and are now sex specific. Anion gap [Moles/Vol] 5 mmol/L 3 - 13 mmol/L [facility] Work Phone: [phone] AST [Catalytic activity/Vol] 52 U/L High 15 - 46 U/L [facility] Work Phone: [phone] Bilirubin [Mass/Vol] 0.4 mg/dL 0.2 - 1 .3 mg/dL [facility] Work Phone: [phone] Calcium [Mass/Vol] 8.2 mg/dL Low 8.4 - 10. 4 mg/dL [facility] Work Phone: Chloride [Moles/Vol] 105 mmol/L 98 - 10 7 mmol/L [facility] Work Phone: [phone] CO2 [Moles/Vol] 23 mmol/L 22 - 30 mmol/L [facility] Work Phone: [phone] Creatinine [Mass/Vol] 0.83 mg/dL 0.52 - 1.25 mg/dL [facility] Work Phone: [phone] IF NonAfrican Peruvian 74.2 mL/min >60 [facility] Work [phone] Comment on above: KDIGO guidelines pro vide [...] fraction] 6.9 g/dL 6.3 - 8.2 g/dL [facility] Work Phone: [phone] GFR/1.73 sq M.predicted among blacks MDRD (S/P/Bld) [Vol rate/Area] 86.0 mL/min/{1.73_m2} >60 [facility] Work Phone: [phone] Glucose [Mass/Vol] 109 mg/dL High 70 - 100 mg/dL [facility] Work Phone: [phone] Potassium [Moles/Vol] 4.3 mmol/L 3.5 - 5.1 mmol/L [facility] Work Phone: [phone] Sodium [Moles/Vol] 132 mmol/L Low 135 - 145 mmol/L [facility] Work Phone: [phone] Urea nitrogen (BldV) [Mass/Vol] 16 mg/dL 7 - 20 mg/dL [facility] Work Phone: ED Provider Noteon ED Provider Note Emergency Department Encounter [facility] EMERGENCY DEPT Patient: Charlie Nguyen : 1955 Date of Evaluation: 01/05/2021 ED Provider: RAH Telles As the [id number], I performed a medical screening history and physical exam on this patient. An N95 and gloves were worn during the entirety of this encounter. HISTORY OF PRESENT ILLNESS In brief, Charlie Nguyen is a 65 y.o. female that presents for right knee pain, fever that started today. Patient had a right knee surgery done on the by Dr. Parrish at [facility]. Patient had an infection in her right knee, and underwent an washout. Patient had a knee replacement approximately 4 years ago, and was found to have a septic joint couple of weeks ago, and underwent washout [facility]. Patient has been on IV antibiotics at [...] Weight 230 lb (104.3 kg) Height 5' 11" (1.803 m) Head Circumference Peak Flow Pain [...] ED as soon as available. RAH Telles [employer] RAH Telles 01/05/211920 Emergency Department Encounter [facility] EMERGENCY DEPT Patient: Charlie Nguyen : 1955 [...] the pain is a burning intermittent 9/10 CABAZON (Location/Symptom, Timing/Onset, Context/Setting, Quality, Duration, Modifying Factors, [...] otherwise acutely negative except as in the CABAZON. Past History Past Medical History: Diagnosis Date [...] Physical Activi (more content not included)... Normal [facility] ED Provider Note Emergency Department Encounter [facility] EMERGENCY DEPT Patient: Charlie Nguyen : 1955 [...] or pain out of proportion. Focused exam: Gyr-aov-xmtovbljh in no acute distress. Alert and oriented X 3. Lungs clear to auscultation bilaterally with no wheezes or crackles appreciated. Heart rate and rhythm regular with no murmurs. Abdomen soft nontender nondistended with positive bowel sounds. No edema appreciated on the lower extremities bilaterally. Knee with tenderness to palpation. Incisions intact. Brief ED course/MDM: ED Course as of Jan 06 0443 Sat Jan 05, 2021 2145 EKG with sinus rhythm with a rate of 76. Patient with no ST elevations or depressions concerning for STEMI. Patient with left axis deviation. HI 167, QRS 92, with a QTC of [...] Patient was discussed with Dr. Danielson at [facility] who accepted patient for admission. Patient was [...] are mis-transcribed.) Erika Hudson MD [employer] Erika Hudson MD 01/06/21 0505 Normal [facility] Hemogram w/ Autodiffon 01-05 Abs Baso Cnt 0.0 10*3/uL Normal 0.0-0.2 [facility] Comment on above: Performed By: #### C RP2, PCAL, CMP3M, LIPA4, HEMDF, ESR #### [address] [phone] Abs Neutrophile Cnt 4.3 10*3/uL Normal 1.8-7.0 [facility] Comment on above: Performed By: #### C RP2, PCAL, CMP3M, LIPA4, HEMDF, ESR #### [address] Erythrocyte distribution width (RBC) [Ratio] 15.0 % High 11.5-14.5 [facility] Comment on above: Performed By: #### C RP2, PCAL, CMP3M, LIPA4, HEMDF, ESR #### [address] Hemoglobin (Bld) [Mass/Vol] 11.3 g/dL Low 11.7-16.0 [facility] Comment on above: Performed By: #### C RP2, PCAL, CMP3M, LIPA4, HEMDF, ESR #### [address] MCHC 32.9 % Normal 32.0-36.0 [facility] Comment on above: Performed By: #### C RP2, PCAL, CMP3M, LIPA4, HEMDF, ESR #### [address] Hemogram w/ AutodiffOrdered By: Kian Palomares on 01-05-2021 Basophils/100 WBC (Bld) 0.1 % Normal 0.0-2.0 [facility] Work Phone: Comment on above: Performed By: #### C RP2, PCAL, CMP3M, LIPA4, HEMDF, ESR #### [address] Eosinophils (Bld) [#/Vol] 0.7 10*3/uL High 0.0-0.5 [facility] Work Phone: Comment on above: Performed By: #### C RP2, PCAL, CMP3M, LIPA4, HEMDF, ESR #### [address] Eosinophils/100 WBC (Bld) 11.3 % High 1.0-6.0 [facility] Work Phone: Comment on above: Performed By: #### C RP2, PCAL, CMP3M, LIPA4, HEMDF, ESR #### [facility] [address] Granulocytes/100 WBC (Bld) 68.6 % Normal 40.0-80.0 [facility] Work Phone: 1 Comment on above: Performed By: #### C RP2, PCAL, CMP3M, LIPA4, HEMDF, ESR #### [facility] [address] Hematocrit (Bld) [Volume fraction] 34.5 % Low 35.0-47.0 [facility] Work Phone: 1 Comment on above: Performed By: #### C RP2, PCAL, CMP3M, LIPA4, HEMDF, ESR #### [facility] [address] Lymphocytes (Bld) [#/Vol] 1.1 10*3/uL Normal 1.0-4.3 [facility] Work Phone: [phone] Comment on above: Performed By: #### C RP2, PCAL, CMP3M, LIPA4, HEMDF, ESR #### [facility] [address] Lymphocytes/100 WBC (Bld) 16.7 % Low 20.0-40.0 [facility] Work Phone: [phone] Comment on above: Performed By: #### C RP2, PCAL, CMP3M, LIPA4, HEMDF, ESR #### [facility] [address] MCH (RBC) [Entitic mass] 31.7 pg Normal 26.0-34.0 [facility] Work Phone: [phone] Comment on above: Performed By: #### C RP2, PCAL, CMP3M, LIPA4, HEMDF, ESR #### [facility] [address] MCV (RBC) [Entitic vol] 96.5 fL Normal 79.0-98.0 [facility] Work Phone: [phone] Comment on above: Performed By: #### C RP2, PCAL, CMP3M, LIPA4, HEMDF, ESR #### [employer] [facility] [place], [place] Monocytes (Bld) [#/Vol] 0.2 10*3/uL Normal 0.0-0.8 [facility] Work Phone: [phone] Comment on above: Performed By: #### C RP2, PCAL, CMP3M, LIPA4, HEMDF, ESR #### [employer] [facility] [place] [address] [address] [place], [place] Monocytes/100 WBC (Bld) 3.3 % Normal 2.0-10.0 [facility] Work Phone: [phone] Comment on above: Performed By: #### C RP2, PCAL, CMP3M, LIPA4, HEMDF, ESR #### [employer] [facility] [address] [address] [place], [place] Platelet mean volume (Bld) [Entitic vol] 8.3 fL Normal 7.4-10.4 [facility] Work Phone: [phone] Comment on above: Performed By: #### C RP2, PCAL, CMP3M, LIPA4, HEMDF, ESR #### [employer] [facility] [place], [place] Platelets (Bld) [#/Vol] 208 10*3/uL Normal 140-440 [facility] Work Phone: [phone] Comment on above: Performed By: #### C RP2, PCAL, CMP3M, LIPA4, HEMDF, ESR #### [employer] [place] [address] [address] [place], [place] RBC (Bld) [#/Vol] 3.57 10*6/uL Low 3.80-5.20 [facility] Work Phone: [phone] Comment on above: Performed By: #### C RP2, PCAL, CMP3M, LIPA4, HEMDF, ESR #### [employer] [place] [address] [place], [place] WBC (Bld) [#/Vol] 6.3 10*3/uL Normal 3.6-10.7 [facility] Work Phone: [phone]) Comment on above: Performed By: #### C RP2, PCAL, CMP3M, LIPA4, HEMDF, ESR #### [employer] [address] [place] [address] Lactate, SepsisOrdered By: Anitra Palomares on 01-05-2021 Lactate [Moles/Vol] 0.7 mmol/L 0.7 - 2. 0 mmol/L [facility] Work Phone: 1 Test Performed by [employer] [address] [place] [address] [facility] Work Phone: 1 [employer] Work Phone: 1 Lactic Acid, Sepsison 2020 Lactate [Moles/Vol] 0.7 mmol/L Normal 0.7-2.0 [facility] Comment on above: Performed By: #### L ACTS ####[employer] [place] [address] Lipaseon 01-05-2021 Lipase [Catalytic activity/Vol] 29 U/L Normal 23-300 [facility] Comment on above: Performed By: #### C RP2, PCAL, CMP3M, LIPA4, HEMDF, ESR #### [employer] [address] [place] [phone] LipaseOrdered By: Kian velasquez on 01-05-2021 Lipase [Catalytic activity/Vol] 29 U/L 23 - 300 U/L [employer] Work Phone: [phone] No Panel InformationOrdered By: Kian Palomares on 01-05-2021 Interpretation and review of laboratory results Abnormal [facility] Work Phone: 1 Test Performed by [employer] [address] [place] [address] [facility] Work Phone: 1 [facility] Work Phone: 1 Interpretation and review of laboratory results Abnormal [facility] Work Phone: 1 Test Performed by [employer] [address] [place] [address] [facility] Work Phone: 1 [facility] Work Phone: [phone] Procalcitoninon 01-05-2021 Procalcitonin 0.99 ng/mL High 0.00-0.09 [facility] Comment on above: Performed By: #### C RP2, PCAL, CMP3M, LIPA4, HEMDF, ESR #### [facility] [address] [address] Interpretation See Below Normal [facility] Comment on above: Result Comment: PCT <0.50 = Low risk of severe sepsis and/or septic shock. PCT >2.00 = High risk of severe sepsis and/or septic shock. Performed By: #### C RP2, PCAL, CMP3M, LIPA4, HEMDF, ESR #### [facility] [employer] [address] [place] [address] ProcalcitoninOrdered By: Lillian Palomares on 01-05-2021 Interpretation See Below [facility] Work Phone: Comment on above: PCT <0.50 = Low risk of severe sepsis and/or septic shock. PCT >2.00 = High risk of severe sepsis and/or septic shock. Interpretation and review of laboratory results Abnormal [facility] Work Phone: [phone] Procalcitonin 0.99 ng/mL High 0.00 - 0.09 ng/mL [facility] Work Phone: Test Performed by [facility], [address] [place] [address] Work Phone: [phone] [facility] Work Phone: [phone] Respiratory Panel, Molecular , with COVID-19 (Restricted: [...] management decisions. This assay was developed by [email or web address] and distributed under an Emergency Use Authorization (EUA) granted by the FDA for the qualitative detection of SARS-CoV-2 nucleic acid. Provider and patient fact sheets can be found at https://www.fda.gov/m edia/942612/download and https://www.fda.gov/m edia/753011/download. [employer] Work Phone: Test Performed by [employer] [address] [place] [address] [employer] Work Phone: [employer] Work Phone: Sed Rateon 01-05-2021 Sed Rate 27 mm/h High 0-20 [facility] Comment on above: Performed By: #### C RP2, PCAL, CMP3M, LIPA4, HEMDF, ESR #### [employer] [address] [place] [phone] Sedimentation RateOrdered By : Kian Palomares on 01-05-2021 Sed Rate 27 mm/h High 0 - 20 mm/h [employer] Work Phone: XR CHEST PORTABLEOrdered By: Kian Palomares on 01-05-2021 Patient Name: CHARLIE NGUYEN Diagnostic Radiology ACCESSION EXAM DATE/TIME PROCEDURE ORDERING PROVIDER [id number] 01/05/2021 20:28 EDT CR Chest Portable [id number] KIAN SILVA CPT code 69069 Reason For Exam (CR Chest Portable) sepsis [...] Phone: [facility], [facility] Incoming Rad[facility] Results From [facility] - 01/05/2021 8:51 PM EDT Patient Name: CHARLIE NGUYEN Diagnostic Radiology ACCESSION EXAM DATE/TIME PROCEDURE ORDERING PROVIDER [id number] 01/05/2021 20:28 EDT CR Chest Portable [id number] KIAN SILVA CPT code 51505 Reason For Exam (CR Chest Portable) sepsis [...] Radiology ACCESSION EXAM DATE/TIME PROCEDURE ORDERING PROVIDER [id number] 01/05/2021 20:28 EDT CR Knee 3 Views Right [id number] -KIAN PALOMARES CPT code 88369 Reason For Exam (CR Knee 3 Views [...] Time: 01/05/2021 8:45 [facility] Work Phone: Rodolfo, [facility] Incoming Radiology Results From [facility] - 01/05/2021 8:51 PM EDT Patient Name: CHARLIE NGUYEN Diagnostic Radiology ACCESSION EXAM DATE/TIME PROCEDURE ORDERING PROVIDER [id number] 01/05/2021 20:28 EDT CR Knee 3 Views Right [id number] KIAN SILVA CPT code 85308 Reason For Exam (CR Knee 3 Views [...] and Time: 01/05/2021 8:45 [facility] Work Phone: [facility] Work Phone: DS 12-26-2020 [facility] HNO ID: [id number] Author: Alexandria Reddy MD Service: Hospital Medicine [...] MD Consulting: Kurtis Danielson MD Primary Service: [place] [address] MY CONDITION AT DISCHARGE: Stable REASON I [...] smoker Chronic pain of right knee Seizure ([facility]) Dysuria Resolved Problems: * No resolved hospital problems. * OPERATIONS PERFORMED WHILE IN THE HOSPITAL: Right knee arthrotomy with irrigation and debridement (with polyethylene exchange)- 12/19/20 IMPORTANT TEST/PROCEDURES: XR chest XR knee TEST RESULTS NOT AVAILABLE AT THIS TIME: No pending results Discharge Disposition Discharge Disposition: [facility] Activity When You [...] every Thursday faxed to Sanjana Tarango at [phone] ? UTI UA with pyuria; culture?pos for Pseudomonas - patient unable to use quinolone due to quetiapine use - Treated with zosyn, completed course ? Hx of DVT and PE Dx in 2018; on eliquis. stable s/p R-knee wash Eliquis resumed on POD 6 MS (multiple sclerosis) ([facility]) POA: Yes WC bound Urine and fecal incontinence LE parasthesia ? Essential hypertension POA: Yes Controlled - Continue Metoprolol; hold HCTZ? ? Current smoker POA: Yes - Nicotine patches ? Seizure ([facility]) POA: Yes - Continue Depakote ? Depressoin/Anxiety - c/w paxil and seroquil ? ? Treatment Team: Attending Provider: Alexandria Reddy MD Consulting: Kurtis Danielson MD Primary Service: [facility] 1 Transitions of Care Critical Issues: NEW BASELINE FOR PATIENT: 1. LAB MONITORING NEEDED: Needs CBC w/ diff, CMP, vancomycin trough, ESR, CRP every Thursday faxed to Sanjana Tarango at [phone] SPECIALIST FOLLOW-UP: 1. infectious diseaes 2. Orthopedic surgery BEY MEDICATION CHANGES: - discontinue BP meds - Cefepime and vancomycin until 01/30 - Oxycodone x 7 days LABS AND [...] ) Preliminary resu (more content not included)... Normal [facility] NURSING PROGon 12-26-2020 NURSING PROG HNO ID: [id number] Author: Sandra Gonzales RN Service: ? Author Type: Registered Nurse Type: Nursing Progress Note Filed: 12/26/2020 6:51 PM Note Text: Nursing Progress Note Patient Name: Charlie Nguyen Patient Location: [place] [address]/[facility]-P Daily Note: Bedside report received, assumed care [...] pt's request, pt ok to be discharged, pick pack worker scheduled for 1830, will monitor. 1845 discharge instructions given to the pt, pt educated on how and when to take pain meds, belongings with pt, transport here, pt left unit via cart, report called to [facility]. This note was completed by: Sandra Gonzales [facility] NUTRITIONon 12-26-2020 NUTRITION HNO ID: [id number] Author: Carmen Garner DTR Service: Nutrition Therapy Author Type: Bird Raiser Type: Nutrition Filed: 12/26/2020 12:21 PM Note Text: NUTRITION THERAPY DESIGN SALES CONSULTANT NOTE SERVICE DATE: 12/26/2020 SERVICE TIME: 10:18 [...] None Anthropometrics: HT/WT/BMI 12/14/2019 12/19/2020 HEIGHT 5' 11" 5' 11" WEIGHT 109.77 kg 105.235 kg BODY MASS INDEX 33.75 32.36 Body mass index is 32.36 kg/m?. Loss of lean body mass/visual muscle wasting: No Weight Change: Decreased (9.7# wt. loss~ 4%) Billing Type: Routine Care/15 min Number of Increments: 2 SIGNATURE: Carmen Garner DTR PATIENT NAME: Charlie Nguyen DATE: December 26, 2020 TIME: 12:18 PM PAGER: [phone] [facility] THERAPY NTon 12-26-2020 THERAPY NT HNO ID: [id number] Author: KEV Sánchez/Catrachito Service: Occupational Therapy Author Type: Occupational Therapist Type: Therapy (PT/OT/Speech/Resp) Filed: 12/26/2020 2:28 PM Note Text: OCCUPATIONAL THERAPY MISSED VISIT SERVICE DATE: 12/26/2020 SERVICE TIME: 1415 to 1420 ROOM: [place] [address]P Attempted Treatment. Patient not seen due to Declined (Pt declines getting up to the chair; wants to sleep as she reports she's been up since 6:30. Continue as able. Nsg notified.). SIGNATURE: KEV Sánchez/Catrachito PATIENT NAME: Charlie Nguyen DATE: December 26, 2020 TIME: 2:28 PM [facility] C difficile PCRon 12-25-2020 C difficile PCR Negative [facility] Comment on above: Performed By: #### C DPCR #### [place] [address] NURSING PROGon 12-25-2020 NURSING PROG HNO ID: [id number] Author: Eduardo Ley RN Service: Nursing Author Type: Registered Nurse Type: Nursing Progress Note Filed: 12/26/2020 2:51 AM Note Text: Nursing Progress Note Patient Name: Charlie Nguyen Patient Location: [place] [address] [address] Daily Note: 1900 Assumed Care of patient. Received bedside report from off going nurse. Patient's bed alarm is on and functioning. 2219 patient is assessed as charted and medicated per MAR This note was completed by: Eduardo Ley [facility] NURSING PROG HNO ID: [id number] Author: Turner Patten RN Service: Nursing Author Type: Registered Nurse Type: Nursing Progress Note Filed: 12/25/2020 12:04 PM Note Text: Nursing Progress Note Patient Name: Charlie Nguyen Patient Location: [facility] Daily Note:Assessment as charted. Patient denies any chest pain or shortness of breath. Patient is lethargic and disoriented. Patient did not believe she was in the hospital. Goal for the day is to control pain. Bed in low position, bed alarm on, call light in reach. Will continue to monitor. This note was completed by: Turner Patten [facility] NURSING PROG HNO ID: [id number] Author: Eduardo Ley RN Service: Nursing Author Type: Registered Nurse Type: Nursing Progress Note Filed: 12/25/2020 2:01 AM Note Text: Nursing Progress Note Patient Name: Charlie Nguyen Patient Location: [facility]P Daily Note: 1900 Assumed Care of patient. Received bedside report from off going nurse. Patient's bed alarm is on and functioning. 2212 patient is aANDo x3, patient is assessed as charted and medicated per MAR This note was completed by: Eduardo Ley [facility] THERAPY NTon 12-25-2020 THERAPY NT HNO ID: [id number] Author: Nathaly Bueno PTA Service: Physical Therapy Author Type: [employer] Tester Type: Therapy (PT/OT/Speech/Resp) Filed: 12/25/2020 12:51 PM Note Text: Attestation signed by Iris Pickens PT at 12/25/2020 2:47 PM I reviewed and agree with the documentation corresponding to this therapy visit. SIGNATURE: Iris Pickens PT DATE: December 25, 2020 TIME: 2:47 PM PHYSICAL THERAPY MISSED VISIT SERVICE DATE: 12/25/2020 SERVICE TIME: 1000 to 1000 ROOM: [address] Attempted Treatment. Patient not seen due to (pt lethargic and with low BP per nurse). SIGNATURE: Nathaly Bueno PTA PATIENT NAME: Charlie Nguyen DATE: December 25, 2020 TIME: 12:51 PM [facility] THERAPY NT HNO ID: [id number] Author: ARTHUR Madrid Service: Occupational Therapy Author Type: Herb Grower Type: Therapy (PT/OT/Speech/Resp) Filed: 12/25/2020 12:27 PM Note Text: Attestation signed by GYPSY Lemon at 12/25/2020 3:33 PM Collaboration with ARTHUR occurred and documentation corresponding to this therapy visit was reviewed. ANJUM Lemon,OTR/L OCCUPATIONAL THERAPY MISSED VISIT SERVICE DATE: 12/25/2020 SERVICE TIME: 1000 to 1000 ROOM: [address] Attempted Treatment. Patient not seen due to (per nurse pt lethargic and confused with low blood pressure hold this AM). SIGNATURE: ARTHUR Madrid PATIENT NAME: Charlie Nguyen DATE: December 25, 2020 TIME: 12:27 PM Normal [facility] Vancomycinon 12-25-2020 Vancomycin 13.3 ug/mL Normal 10.0-20.0 [facility] Comment on above: Result Comment: Refe rence ranges and high/low indicator flags are provided as general guidelines only. The treating physician must determine appropriate target levels/dosing based on the specific clinical situation. Basic Metabolic Panlon 12-24 Anion gap [Moles/Vol] 12 mmol/L Normal 9-18 [facility] Calcium [Mass/Vol] 9.4 mg/dL Normal 8.5-10.2 [facility] Chloride [Moles/Vol] 93 mmol/L Low 97-105 [facility] CO2 [Moles/Vol] 30 mmol/L Normal 22-33 [facility] Creatinine [Mass/Vol] 0.82 mg/dL Normal 0.58-0.96 [facility] eGFR- Amer. >60 Normal [facility] eGFR-All Other Races >60 Normal [facility] Comment on above: Result Comment: eGFR (Estimated [...] GFR. Glucose [Mass/Vol] 85 mg/dL Normal 74-99 [facility] Potassium [Moles/Vol] 4.2 mmol/L Normal 3.7-5.1 [facility] Sodium [Moles/Vol] 135 mmol/L Low 136-144 [facility] Urea nitrogen [Mass/Vol] 7 mg/dL Normal 7-21 [facility] CASE MANAGEMon 12-24-2020 CASE MANAGEM HNO ID: [id number] Author: Laura Silva RN Service: Case Management Author Type: Registered Nurse Type: Care Mgt Progress Note Filed: 12/24/2020 2:16 PM Note Text: CARE MANAGEMENT PROGRESS NOTE SERVICE DATE: 12/24/2020 SERVICE TIME: 11:41 AM LOS: 5 days Needs Prior to Discharge: Discharge Transportation;Other: See Comment (updated COVID) Patient care home resident at [facility]. Facility aware that PICC has been [...] 24, 2020 TIME: 11:41 AM PAGER/CONTACT #: [phone] [facility] Coronavirus 2019on 1 SARS-CoV-2 (COVID-19) RNA TANVIR+probe Ql (Unsp spec) UPPER RESPIRATORY TRACT SWAB Normal [facility] Comment on above: Performed By: #### C OVID ####[facility] [place], [place] [phone] SARS-CoV-2 (COVID-19) RNA TANVIR+probe Ql (Unsp spec) Negative for COVID19 (SARS CoV2) by RT-PCR or equivalent method. Normal Negative for COVID19 (SARS CoV2) by RT-PCR or equivalent method. [facility] Comment on above: Result Comment: This test was developed and its performance characteristics determined by [facility]'s [facility] [place]. This test has been authorized by FDA under an Emergency Use Authorization (EUA). This test has been validated in accordance with the FDA's Guidance Document "Policy for Diagnostics Testing in Laboratories Certified to Perform High Complexity Testing under CLIA prior to Emergency use Authorization for Coronavirus Disease 2019 during the Public Health Emergency" issued on July 30, 2019. Test performed by [facility], [facility] [place], [address] [place] [id number]. Performed By: #### C OVID ####[address] [id number] NURSING PROGon 12-24-2020 NURSING PROG HNO ID: [id number] Author: Turner Patten RN Service: Nursing Author Type: Registered Nurse Type: Nursing Progress Note Filed: 12/24/2020 11:33 AM Note Text: Nursing Progress Note Patient Name: Charlie Nguyen Patient Location: [place] [address] [address] Daily Note:Assessment as charted. Patient resting in bed. Patient denies any chest pain or shortness of breath. Patient complains of 8/10 pain in right knee, medicated for pain. Goal for the day is to control pain and increase mobility. Bed in low position, bed alarm on, call light in reach. Will continue to monitor. This note was completed by: Turner Patten Normal [facility] THERAPY NTon 12-24-2020 THERAPY NT HNO ID: [id number] Author: KEV Sánchez/Catrachito Service: Occupational Therapy Author Type: Occupational Therapist Type: Therapy (PT/OT/Speech/Resp) Filed: 12/24/2020 5:51 PM Note Text: Occupational Therapy Treatment SERVICE DATE: 12/24/2020 SERVICE TIME: 1025 to 1050 ROOM: [facility]- Recommended Discharge Disposition: Subacute/SNF Recommended Discharge Disposition [...] Patient Lives With: Facility Care (LTC at [facility]) Assistance Available: 24 Hour Entry To Home: [...] Sit Pivot (x2, mod cues for sequencing, CARDIAC NURSE PRACTITIONER) Toilet/Commode Shower Functional Mobility (non ambulatory) Blank [...] with: Minimal Assistan (more content not included)... [facility] THERAPY NT HNO ID: [id number] Author: Toshia Velázquez, PT Service: Physical Therapy Author Type: Physical Therapist Type: Therapy (PT/OT/Speech/Resp) Filed: 12/24/2020 1:14 PM Note Text: Physical Therapy Treatment SERVICE DATE: 12/24/2020 SERVICE TIME: 1025 to 1050 ROOM: [id number]-P Recommended Discharge Disposition Comments: rec trial SNF [...] Patient Lives With: Facility Care (LTC at [facility]) Assistance Available: 24 Hour Entry To Home: No Stairs Tub/Shower Type: walk in shower Laundry: facility does laundry Equipment Owned: Wheelchair (reporting has own WC; manual) Prior Functional Level: Required Assistance Assistance Required With: Cleaning;Laundry;Safe ty;Self Care;Shopping;Transpo rtation;Medication Management;Meals Prior Functional Level Comments: pt questionable historian; reporting from [facility]; reporting pivot transfers only to WC, [...] (ADL);Muscle Weakness (generalized) Interventions Provided: Therapeutic Activity (26183) Therapeutic Activity (63414) Treatment Minutes: 25 $ Therapeutic Activity (17737) Billed Units: 2 units Training AND education provided in: Bed mobility, Benefits of in-hospital mobility, Discharge planning, Equipme (more content not included)... Normal [facility] Vancomycinon 12-24-2020 Vancomycin 24.5 ug/mL High 10.0-20.0 [facility] Comment on above: Result Comment: Refe rence ranges and high/low indicator flags are provided as general guidelines only. The treating physician must determine appropriate target levels/dosing based on the specific clinical situation. CBCon 12-23-2020 Absolute nRBC <0.01 Normal <0.01 [facility] Erythrocyte distribution width (RBC) [Ratio] 14.6 % Normal 11.5-15.0 [facility] Hematocrit (Bld) [Volume fraction] 35.9 % Low 36.0-46.0 [facility] Hemoglobin (Bld) [Mass/Vol] 11.7 g/dL Normal 11.5-15.5 [facility] MCH 32.2 pG Normal 26.0-34.0 [facility] MCHC (RBC) [Mass/Vol] 32.6 g/dL Normal 30.5-36.0 [facility] MCV (RBC) [Entitic vol] 98.9 fL Normal 80.0-100.0 [facility] Platelet mean volume (Bld) [Entitic vol] 10.0 fL Normal 9.0-12.7 [facility] Platelets (Bld) [#/Vol] 213 10*3/uL Normal 150-400 [facility] RBC (Bld) [#/Vol] 3.63 10*6/uL Low 3.90-5.20 [facility] WBC (Bld) [#/Vol] 5.70 10*3/uL Normal 3.70-11.00 [facility] NURSING PROGon 12-23-2020 NURSING PROG HNO ID: [id number] Author: Toshia Frye RN Service: Nursing Author Type: Registered Nurse Type: Nursing Progress Note Filed: 12/24/2020 5:51 AM Note Text: Nursing Progress Note Patient Name: Charlie Nguyen Patient Location: [place] [address] 1900- Bedside report received, assumed care of [...] importance of staggering medications that can cause 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 Pt states she is able to take them together at the custodial. Educated regarding hospital policy due to safety reasons. Pt remains upset. Not receptive to education at this time. 0300- prior assessment remains unchanged, will continue to monitor. This note was completed by: Toshia Frye [facility] NURSING PROG HNO ID: [id number] Author: Terry Moreau RN Service: Nursing Author Type: Registered Nurse Type: Nursing Progress Note Filed: 12/23/2020 12:14 PM Note Text: Nursing Progress Note ? Patient Name: Charlie Nguyen Patient Location: [facility]-454-P Daily note: 0700 Assumed care of patient. Received report from previous RN. Patient asleep in bed. Safety check completed. 0740 Assessment completed and charted refer to NPR. Patient oriented x 3. Appears agitated but otherwise cooperative. Medicated appropriately per JUL. PICC dressing remains C/D/I and flushes well with positive blood return. R knee remains swollen. Knee immobilizer in place. External catheter in place for incontinence. Vitals remain stable. Will continue to monitor. This note was completed by: Terry Davidson RN BSN [facility] NURSING PROG HNO ID: [id number] Author: Eduardo Ley RN Service: Nursing Author Type: Registered Nurse Type: Nursing Progress Note Filed: 12/23/2020 2:54 AM Note Text: Nursing Progress Note Patient Name: Charlie Nguyen Patient [facility]: [facility]-P Daily Note: 1900 Assumed Care of patient. [...] This note was completed by: Eduardo Ley Normal [facility] Renal Function Panelon 12-23 Albumin [Mass/Vol] 3.1 g/dL Low 3.9-4.9 [facility] Anion gap [Moles/Vol] 7 mmol/L Low 9-18 [facility] Calcium [Mass/Vol] 8.1 mg/dL Low 8.5-10.2 [facility] Chloride [Moles/Vol] 100 mmol/L Normal 97-105 [facility] CO2 [Moles/Vol] 33 mmol/L Normal 22-33 [facility] Creatinine [Mass/Vol] 0.80 mg/dL Normal 0.58-0.96 [facility] eGFR- Amer. >60 Normal [facility] eGFR-All Other Races >60 Normal [facility] Comment on above: Result Comment: eGFR (Estimated [...] GFR. Glucose [Mass/Vol] 83 mg/dL Normal 74-99 [facility] Phosphate [Mass/Vol] 5.2 mg/dL High 2.7-4.8 [facility] Potassium [Moles/Vol] 4.8 mmol/L Normal 3.7-5.1 [facility] Sodium [Moles/Vol] 140 mmol/L Normal 136-144 [facility] Urea nitrogen [Mass/Vol] 7 mg/dL Normal 7-21 [facility] THERAPY NTon 12-23-2020 THERAPY NT HNO ID: [id number] Author: Steffen Jeff PTA Service: Physical Therapy Author Type: Semiconductor Wafers Tester Type: Therapy (PT/OT/Speech/Resp) Filed: 12/23/2020 1:48 PM Note Text: Attestation signed by Deja Strickland PT at 12/23/2020 1:52 PM I reviewed and agree with the assessment as documented above. SIGNATURE: Deja Strickland PT DATE: December 23, 2020 TIME: 1:52 PM PHYSICAL THERAPY MISSED VISIT SERVICE DATE: 12/23/2020 SERVICE TIME: 1355 to 1355 ROOM: [address] Attempted Treatment. Patient not seen due to (pt. reports that she needs to get cleaned up after having a BM. PCNA notified. Will attempt to return this PM as able.). SIGNATURE: Steffen Jeff PTA PATIENT NAME: Charlie Nguyen DATE: December 23, 2020 TIME: 1:48 PM Normal [facility] CBCon 12-22-2020 Absolute nRBC <0.01 Normal <0.01 [facility] Erythrocyte distribution width (RBC) [Ratio] 15.0 % Normal 11.5-15.0 [facility] Hematocrit (Bld) [Volume fraction] 39.5 % Normal 36.0-46.0 [facility] Hemoglobin (Bld) [Mass/Vol] 12.1 g/dL Normal 11.5-15.5 [facility] MCH 31.0 pG Normal 26.0-34.0 [facility] MCHC (RBC) [Mass/Vol] 30.6 g/dL Normal 30.5-36.0 [facility] MCV (RBC) [Entitic vol] 101.3 fL High 80.0-100.0 [facility] Platelet mean volume (Bld) [Entitic vol] 10.3 fL Normal 9.0-12.7 [facility] Platelets (Bld) [#/Vol] 217 10*3/uL Normal 150-400 [facility] RBC (Bld) [#/Vol] 3.90 10*6/uL Normal 3.90-5.20 [facility] WBC (Bld) [#/Vol] 7.69 10*3/uL Normal 3.70-11.00 [facility] CONSULT PROGon 12-22-2020 CONSULT PROG HNO ID: [id number] Author: Luli Richards MD Service: Infectious Disease [...] in the past for recurrent UTI Knee "burning" OBJECTIVE PHYSICAL EXAM: Afebrile, VSS General appearance: [...] vancomycin at 1.25 g IV every 12h Mary Tarango will reassess and provide final recommendations Sunday 12/24 -- please call sooner prn SIGNATURE: Luli Richards MD DATE: December 22, 2020 TIME: 10:28 AM Normal [facility] NURSING PROGon 12-22-2020 NURSING PROG HNO ID: [id number] Author: Terry Moreau RN Service: Nursing Author Type: Registered Nurse Type: Nursing Progress Note Filed: 12/22/2020 3:56 PM Note Text: Nursing Progress Note ? Patient Name: Charlie Nguyen Patient Location: [facility]4A-454/[facility]-454-P Daily note: 0700 Assumed care of patient. [...] This note was completed by: Terry Davidson CELLULAR TOWER CLIMBER [facility] NURSING PROG HNO ID: [id number] Author: Sanjay Isaac RN Service: Nursing Author Type: Registered Nurse Type: Nursing Progress Note Filed: 12/22/2020 5:47 AM Note Text: Nursing Progress Note Patient Name: Charlie Nguyen Patient Location: [facility]4A-454/-4A-454-P Daily Note: 1900 Assumed care of pt. [...] This note was completed by: Sanjay Isaac [facility] Renal Function Panelon 12-22 Albumin [Mass/Vol] 3.0 g/dL Low 3.9-4.9 [facility] Anion gap [Moles/Vol] 8 mmol/L Low 9-18 [facility] Calcium [Mass/Vol] 8.5 mg/dL Normal 8.5-10.2 [facility] Chloride [Moles/Vol] 99 mmol/L Normal 97-105 [facility] CO2 [Moles/Vol] 31 mmol/L Normal 22-33 [facility] Creatinine [Mass/Vol] 0.81 mg/dL Normal 0.58-0.96 [facility] eGFR- Amer. >60 Normal [facility] eGFR-All Other Races >60 Normal [facility] Comment on above: Result Comment: eGFR (Estimated [...] GFR. Glucose [Mass/Vol] 79 mg/dL Normal 74-99 [facility] Phosphate [Mass/Vol] 5.1 mg/dL High 2.7-4.8 [facility] Potassium [Moles/Vol] 4.9 mmol/L Normal 3.7-5.1 [facility] Sodium [Moles/Vol] 138 mmol/L Normal 136-144 [facility] Urea nitrogen [Mass/Vol] 7 mg/dL Normal 7-21 [facility] Vancomycinon 12-22-2020 Vancomycin 11.7 ug/mL Normal 10.0-20.0 [facility] Comment on above: Result Comment: Refe rence ranges and high/low indicator flags are provided as general guidelines only. The treating physician must determine appropriate target levels/dosing based on the specific clinical situation. CBCon 12-21-2020 Absolute nRBC <0.01 Normal <0.01 [facility] Erythrocyte distribution width (RBC) [Ratio] 14.6 % Normal 11.5-15.0 [facility] Hematocrit (Bld) [Volume fraction] 33.9 % Low 36.0-46.0 [facility] Hemoglobin (Bld) [Mass/Vol] 10.6 g/dL Low 11.5-15.5 [facility] MCH 30.6 pG Normal 26.0-34.0 [facility] MCHC (RBC) [Mass/Vol] 31.3 g/dL Normal 30.5-36.0 [facility] MCV (RBC) [Entitic vol] 98.0 fL Normal 80.0-100.0 [facility] Platelet mean volume (Bld) [Entitic vol] 10.6 fL Normal 9.0-12.7 [facility] Platelets (Bld) [#/Vol] 202 10*3/uL Normal 150-400 [facility] RBC (Bld) [#/Vol] 3.46 10*6/uL Low 3.90-5.20 [facility] WBC (Bld) [#/Vol] 9.04 10*3/uL Normal 3.70-11.00 [facility] CONSULT PROGon 12-21-2020 CONSULT PROG HNO ID: [id number] Author: Sybil Randhawa [facility] Service: Pharmacy Author Type: Pharmacist Type: Consult [...] Please contact pharmacy if questions. Sybil Randhawa [facility] [phone] Normal [facility] NURSING PROGon 12-21-2020 NURSING PROG HNO ID: [id number] Author: Kimberly Headley RN Service: Nursing Author Type: Registered Nurse Type: Nursing Progress Note Filed: 12/21/2020 3:23 PM Note Text: Nursing Progress Note Patient Name: Charlie Nguyen Patient Location: [place] [address] Daily Note: 0700 Assumed patient care, bedside [...] This note was completed by: Kimberly Headley [facility] NURSING PROG HNO ID: [id number] Author: Eduardo Ley RN Service: Nursing Author Type: Registered Nurse Type: Nursing Progress Note Filed: 12/20/2020 11:28 PM Note Text: Nursing Progress Note Patient Name: Charlie Nguyen Patient Location: [facility]4A-454/[facility]4A-454-P Daily Note: 1900 Assumed Care of patient. Received bedside report from off going nurse. Patient's bed alarm is on and functioning. Will continue to monitor. 2108 patient is aANDo x3, patient is assessed as charted and medicated per MAR This note was completed by: Eduardo Ley [facility] PT EDon 12-21-2020 PT ED HNO ID: [id number] Author: Judeth Ihsan, RN Service: PICC Team Author Type: Registered Nurse Type: Patient Education Filed: 12/21/2020 12:46 PM Note Text: PATIENT EDUCATION TOPIC: PROCEDURE / SURGERY: Procedure/Surgery: PICC INSERTION PATIENT NAME: Charlie Nguyen PATIENT LOCATION: [address] READINESS TO LEARN COGNITIVE ABILITY: Alert and [...] (RECOMMENDATION): None Electronically Signed By: Chaitanya Champagne [facility] Renal Function Panelon 12-21 Albumin [Mass/Vol] 3.0 g/dL Low 3.9-4.9 [facility] Anion gap [Moles/Vol] 8 mmol/L Low 9-18 [facility] Calcium [Mass/Vol] 8.7 mg/dL Normal 8.5-10.2 [facility] Chloride [Moles/Vol] 102 mmol/L Normal 97-105 [facility] CO2 [Moles/Vol] 28 mmol/L Normal 22-33 [facility] Creatinine [Mass/Vol] 0.64 mg/dL Normal 0.58-0.96 [facility] eGFR- Amer. >60 Normal [facility] eGFR-All Other Races >60 Normal [facility] Comment on above: Result Comment: eGFR (Estimated [...] GFR. Glucose [Mass/Vol] 99 mg/dL Normal 74-99 [facility] Phosphate [Mass/Vol] 3.0 mg/dL Normal 2.7-4.8 [facility] Potassium [Moles/Vol] 4.1 mmol/L Normal 3.7-5.1 [facility] Sodium [Moles/Vol] 138 mmol/L Normal 136-144 [facility] Urea nitrogen [Mass/Vol] 7 mg/dL Normal 7-21 [facility] THERAPY NTon 12-21-2020 THERAPY NT HNO ID: [id number] Author: Deja Strickland PT Service: Physical Therapy Author Type: Physical Therapist Type: Therapy (PT/OT/Speech/Resp) Filed: 12/21/2020 2:10 PM Note Text: Physical Therapy Evaluation SERVICE DATE: 12/21/2020 SERVICE TIME: 1355 to 1355 ROOM: [address] PHYSICAL THERAPY MISSED VISIT SERVICE DATE: 12/21/2020 SERVICE TIME: 1355 to 1355 ROOM: [address] Attempted Evaluation. Patient not seen due to Declined. Patient requesting to rest as she reports she had a busy morning. Will defer PT session today. SIGNATURE: Deja Strickland PT PATIENT NAME: Charlie Nguyen DATE: December 21, 2020 TIME: 2:09 PM [facility] THERAPY NT HNO ID: [id number] Author: Toshia Montano OT/Catrachito Service: Occupational Therapy Author Type: Occupational Therapist Type: Therapy (PT/OT/Speech/Resp) Filed: 12/21/2020 11:31 AM Note Text: OCCUPATIONAL THERAPY MISSED VISIT SERVICE DATE: 12/21/2020 SERVICE TIME: 1131 to 1131 ROOM: [address] Attempted Treatment. Patient not seen due to Test/Procedure. SIGNATURE: Toshia Montano OT/Catrachito PATIENT NAME: Charlie Nguyen DATE: December 21, 2020 TIME: 11:31 AM Normal [facility] Vancomycinon 12-21-2020 Vancomycin 23.3 ug/mL High 10.0-20.0 [facility] Comment on above: Result Comment: Refe rence ranges and high/low indicator flags are provided as general guidelines only. The treating physician must determine appropriate target levels/dosing based on the specific clinical situation. CASE MGT INEYAD Giordano 2020 CASE MGT INEYAD HERNÁNDEZ HNO ID: [id number] Author: Denise Gale RN Service: Case Management Author Type: Registered Nurse Type: Care Mgt Initial Assessment Filed: 12/20/2020 11:01 AM Note Text: CARE MANAGEMENT: ASSESSMENT AND DISCHARGE PLAN SERVICE DATE: December 20, 2020 SERVICE TIME: 10:57 AM PRIMARY CARE PHYSICIAN: Moreno Oates MD ADMISSION STATUS: Inpatient Needs Prior to Discharge: To Be Determined;Discharge Transportation;Discha rge Prescriptions MEDICAL: [place] Patient/Representativ e Stated Goals: To have reduction in symptoms;To have reduction in pain Health Insurance: Medicaid Health Issues Impacting Discharge Plan: None Last Discharge Date: 11/11/19 Is this Within the Past 30 days? Last discharge within 30 days: No Advance Directive: Current Advance Directive: Health Care Power of Community Leader In Chart: Yes Up To Date and [...] Receive Any Community Services or Home Care?: Nursing Home Has the Patient Been in a Nursing Home Facility in the Past 30 days?: Yes SOCIAL: Living Arrangements: Nursing Facility Facility Information: [facility] Financial Resources: Disabled Primary Contact: Extended Emergency Contact Information Primary Emergency Contact: Callum Nguyen Mobile Relation: Son Supportive Patient Contact:: Unable [...] Completely I feel financially burdened by my [id number] expenses for my prescription medication:: 0 - Disagree Completely Risk Score: 0 Patient is categorized as: Low risk < 2 Are you interested in bedside delivery of your medications? No Is Patient Psychosocially Complex?: No ASSESSMENT AND PLAN: Medical Needs: Medical Needs: None Psychosocial Needs: Psychosocial Needs: None FREEDOM OF CHOICE EXPLAINED: [place] of Choice Given: Yes Level of Care Discussed: Nursing Home Facility Financial Disclosure Provided: Yes Provider List: Rehab Facility (Patient is LTC at [facility]) POTENTIAL TRANSITION PLANS Nursing Home Facility/Intermediate Care Facility Met with patient at bedside. She was transferred to us from [facility] ED for a joint infection. Patient is retirement care at [facility] with plans to return there when medically cleared. Return referral sent. Therapy scheduled to evaluate patient today. Will await return response from [facility] for any barriers to return. Cultures pending obtained from OR. Case management will continue to follow and assist with discharge planning needs. SIGNATURE: Denise Gale RN PATIENT NAME: Charlie Nguyen DATE: December 20, 2020 TIME: 10:57 AM PAGER/CONTACT #: [phone] [facility] CONSULTon 12-20-2020 CONSULT HNO ID: [id number] Author: Sanjana Tarango MD Service: Infectious Disease [...] fevers or chills. She had arthrocentesis with 5[address]28 nucleated cells. She went to OR for [...] Rfl: 1 COMPOUNDED PRESCRIPTION, Power Mobility Device "scooter". Face to face evaluation 12/30/2018 Diagnosis: (T84.018S, [...] with meals., Disp: (more content not included)... [facility] NURSING PROGon 12-20-2020 NURSING PROG HNO ID: [id number] Author: Sandra Gonzales RN Service: ? Author Type: Registered Nurse Type: Nursing Progress Note Filed: 12/20/2020 6:48 PM Note Text: Nursing Progress Note Patient Name: Charlie Nguyen Patient Location: [place] [address]/[facility]- Daily Note: Bedside report received, assumed care [...] This note was completed by: Sandra Gonzales [facility] NURSING PROG HNO ID: [id number] Author: Eduardo Ley RN Service: Nursing Author Type: Registered Nurse Type: Nursing Progress Note Filed: 12/20/2020 1:20 AM Note Text: Nursing Progress Note Patient Name: Charlie Nguyen Patient Location: [facility]-454-P Daily Note: 2000 Assumed Care of patient. Received report from PACU Patient's bed alarm is on and functioning. Patient oriented to call system and room. 2103 patient is assessed as charted and medicate per MAR This note was completed by: Eduardo Ley [facility] THERAPY NTon 12-20-2020 THERAPY NT HNO ID: [id number] Author: Arelis Castanon PT Service: Physical Therapy Author Type: Physical Therapist Type: Therapy (PT/OT/Speech/Resp) Filed: 12/20/2020 3:10 PM Note Text: Physical Therapy Evaluation SERVICE DATE: 12/20/2020 SERVICE TIME: 1040 to 1110 ROOM: [facility]-P Recommended Discharge Disposition Comments: rec trial SNF [...] Patient Lives With: Facility Care (LTC at [facility]) Assistance Available: 24 Hour Entry To Home: No Stairs Tub/Shower Type: walk in shower Laundry: facility does laundry Equipment Owned: Wheelchair (reporting has own WC; manual) Prior Functional Level: Required Assistance Assistance Required With: Cleaning;Laundry;Safe ty;Self Care;Shopping;Transpo rtation;Medication Management;Meals Prior Functional Level Comments: pt questionable historian; reporting from [facility]; reporting pivot transfers only to WC, [...] Transfer Blank hendrix indicate activity not attempted -HLM: 4: Move to chair / commode [...] Weakness (generalized) Interventions Provided: Evaluation;Therapeuti c Activity (97070) $ Evaluation-Low (15754) Billed Units: 1 unit Therapeutic Activity (32273) Treatment Minutes: 15 $ Therapeutic Activity (68498) Billed Units: 1 unit Training AND education provided in: Bed mobility, Benefits of in-hospital mobility, Discharge planning, Equipment, Positioning, Precautions/restricti ons, Role of Physical Therapy, Transfers The following therapeutic skills were used: Activity dosing, Cues for sequencing/proper technique for activity, Cuing tactile, Cuing verbal, Cuing visual, Physical assist Total Timed Code Treatment Minutes: 15 Total Treatment Time ( (more content not included)... [facility] THERAPY NT HNO ID: [id number] Author: KEV Colunga/L Service: Occupational Therapy Author Type: Occupational Therapist Type: Therapy (PT/OT/Speech/Resp) Filed: 12/20/2020 12:40 PM Note Text: Occupational Therapy Evaluation SERVICE DATE: 12/20/2020 SERVICE TIME: 899 to 929 ROOM: [address] Recommended Discharge Disposition: Subacute/SNF Recommended Discharge [...] Home Environment Patient Lives With: Facility Care ([facility] (LT ?)) Assistance Available: 24 Hour Entry To Home: No Stairs Tub/Shower Type: walk in shower Laundry: facility does laundry Equipment Owned: Cane;Commode-Bedside; Wheeled Walker;Wheelchair Prior Functional Level: Required Assistance Assistance Required With: Cleaning;Laundry;Meal s;Safety;Self Care;Shopping;Transpo rtation Prior Functional Level Comments: Pt is a questionable historian; Pt has been at [facility] since 10/2019 per chart; using w/c for [...] with: Minimal Ass (more content not included)... [facility] [employer] Cult and Stainon 021 AFB Cult and Stain Sp. Request/Comment: - Specimen received in sterile container. Smear Result - No acid fast bacilli seen by fluorochrome stain Culture Result - No Acid Fast Bacilli isolated after 42 days [facility] Comment on above: Performed By: #### A FC ####[facility] [place], [place] [id number] ANES POSTPROC EVALon 021 ANES POSTPROC EVAL HNO ID: [id number] Author: Angela Womack MD Service: Anesthesiology Author Type: Anesthesiologist Type: Anesthesia Postprocedure Evaluation Filed: 12/19/2020 7:47 PM Note Text: POST ANESTHESIA EVALUATION NOTE : 1955 Procedure Summary Date: 12/19/20 Room / Location: ORA / OR Anesthesia Start: 1525 Anesthesia Stop: 1830 Procedure: REVISION JOINT TOTAL KNEE ONE COMPONENT (Right Leg) 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]) Surgeons: Ruddy Parrish MD Responsible Provider: Angela Womack MD Anesthesia Type: general ASA Status: 4 - Emergent Anesthesia Type: general Last vitals Vitals Value Taken Time BP 107/59 12/19/20 1930 Temp 36.6 ?C (97.9 ?F) 12/19/20 182 Pulse 50 12/19/201943 Resp 14 12/19/201943 SpO2 93 % 12/19/201943 Vitals shown include [...] December 19, 2020 TIME: 7:47 PM CSN: [id number] [facility] ANES PRE-OPon 12-19-2020 ANES PRE-OP HNO ID: [id number] Author: Sulaiman Castro MD Service: Anesthesiology Author Type: Anesthesiologist Type: Anesthesia Preprocedure Evaluation Filed: 12/19/2020 2:06 PM Note Text: ANESTHESIOLOGY DAY OF SURGERY NOTE : 1955 Procedure(s) (LRB): REVISION JOINT TOTAL KNEE ONE COMPONENT (Right) Surgeon(s): Ruddy Parrish MD Estimated body mass index is 32.36 kg/m? as calculated from the following: Height as of this encounter: 180.3 cm (5' 11"). Weight as of this encounter: 105.2 kg [...] short acting, (more content not included)... Normal [facility] APTTon 12-19-2020 aPTT Coag (Bld) [Time] 33.3 s High 23.0-32.4 [facility] Comment on above: Result Comment: Unfr actionated [...] laboratory APTT reagent in use throughout the [facility]. Anaerobe Cultureon Anaerobe Culture Sp. Request/Comment: - Specimen received in sterile container. Culture Result - Negative for anaerobes. No Cutibacterium (Propionibacterium) acnes isolated. [facility] Comment on above: Performed By: #### A NACUL ####[facility] [place], [place] [phone] BRIEF OP NOTon 12-19-2020 BRIEF OP NOT HNO ID: [id number] Author: Trish Moran DO Service: Orthopaedic Surgery Author Type: Resident Type: Brief Op Note Filed: 12/19/2020 6:29 PM Note Text: ORTHOPAEDIC SURGERY BRIEF OPERATIVE NOTE Patient Name: Charlie Nguyen Account #: Data Unavailable Date of Procedure: 12/19/2020 LOG ID: [id number] Incision/Procedure Start Time: 4:26 PM Incision Close/Procedure End Time: 6:06 PM Pre-Op/Pre-Procedure 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 Item Serial No. Dog Breeder Lot No. LRB No. Used Action BUSHING FEMORAL MODULAR ROTATE HINGE KNEE - [id number] Joint - Knee BUSHING FEMORAL MODULAR ROTATE HINGE KNEE [facility] [id number] Right 1 Implanted BUSHING FEMORAL MODULAR ROTATE HINGE KNEE - [id number] Joint - Knee BUSHING FEMORAL MODULAR ROTATE HINGE KNEE [employer] [id number] Right 1 Implanted COMPONENT XS SMALL MEDIUM TIBIAL ROTATE HINGE KNEE - [id number] Joint - Knee COMPONENT XS SMALL MEDIUM TIBIAL ROTATE HINGE KNEE [employer] [id number] Right 1 Implanted INSERT GMRS [id number] S1 S2 TIBIAL MODULAR ROTATE HINGE PROXIMAL - [id number] Joint - Knee INSERT GMRS [id number] S1 S2 TIBIAL MODULAR ROTATE HINGE PROXIMAL [employer] [id number] Right 1 Implanted SLEEVE TIBIAL MODULAR ROTATE HINGE KNEE - [id number] Joint - Knee SLEEVE TIBIAL MODULAR ROTATE HINGE KNEE [employer] Right 1 Implanted INSERT GMRS NEUTRAL BUMPER MODULAR ROTATE HINGE KNEE PROXIMAL - [id number] Joint - Knee INSERT GMRS NEUTRAL BUMPER MODULAR ROTATE HINGE KNEE PROXIMAL [employer] Right 1 Implanted AXLE FEMORAL MODULAR ROTATE HINGE KNEE - [id number] Joint - Knee AXLE FEMORAL MODULAR ROTATE HINGE KNEE [employer] [employer] Right 1 Implanted Estimated Blood Loss: [...] in office 2 weeks after surgery. Trish Moran, Orthopedic Surgery Resident December 19, 2020 6:20 PM Normal [facility] Basic Metabolic Panlon 12-19 Anion gap [Moles/Vol] 9 mmol/L Normal 9-18 [facility] Calcium [Mass/Vol] 9.0 mg/dL Normal 8.5-10.2 [facility] Chloride [Moles/Vol] 102 mmol/L Normal 97-105 [facility] CO2 [Moles/Vol] 26 mmol/L Normal 22-33 [facility] Creatinine [Mass/Vol] 0.81 mg/dL Normal 0.58-0.96 [facility] eGFR- Amer. >60 Normal [facility] eGFR-All Other Races >60 Normal [facility] Comment on above: Result Comment: eGFR (Estimated [...] GFR. Glucose [Mass/Vol] 73 mg/dL Low 74-99 [facility] Potassium [Moles/Vol] 3.8 mmol/L Normal 3.7-5.1 [facility] Sodium [Moles/Vol] 137 mmol/L Normal 136-144 [facility] Urea nitrogen [Mass/Vol] 15 mg/dL Normal 7- [facility] Body Fluid Cult/Stnon 2020 Body Fluid Cult/Stn Sp. Request/Comment: - Specimen received in sterile container. Smear Result - No organisms seen Many Polymorphonuclear leukocytes Culture Result - No growth 14 days Normal [facility] Comment on above: Performed By: #### B FCUL ####[facility] [address] [place] [address] [phone] Body Fluid Cult/Stn Sp. Request/Comment: - Specimen received in sterile container. Smear Result - No organisms seen Many Polymorphonuclear leukocytes Culture Result - No growth 5 days Normal [facility] Comment on above: Performed By: #### B FCUL ####[address] [phone] CASE MANAGEMon 12-19-2020 CASE MANAGEM HNO ID: [id number] Author: Jossy Warner RN Service: Case Management Author Type: Registered Nurse Type: Care Mgt Progress Note Filed: 12/19/2020 1:48 PM Note Text: CARE MANAGEMENT PROGRESS NOTE SERVICE DATE: 12/19/2020 SERVICE TIME: 1:45 PM LOS: 0 days Patient screened and discharge needs evaluated. Textile Artist to follow for discharge planning. SIGNATURE: Jossy Warner RN PATIENT NAME: Charlie Nguyen DATE: December 19, 2020 TIME: 1:39 PM PAGER/CONTACT #: [phone] Normal [facility] CBCon 12-19-2020 Absolute nRBC <0.01 Normal <0.01 [facility] Erythrocyte distribution width (RBC) [Ratio] 15.2 % High 11.5-15.0 [facility] Hematocrit (Bld) [Volume fraction] 40.6 % Normal 36.0-46.0 [facility] Hemoglobin (Bld) [Mass/Vol] 12.9 g/dL Normal 11.5-15.5 [facility] MCH 31.8 pG Normal 26.0-34.0 [facility] MCHC (RBC) [Mass/Vol] 31.8 g/dL Normal 30.5-36.0 [facility] MCV (RBC) [Entitic vol] 100.0 fL Normal 80.0-100.0 [facility] Platelet mean volume (Bld) [Entitic vol] 10.4 fL Normal 9.0-12.7 [facility] Platelets (Bld) [#/Vol] 168 10*3/uL Normal 150-400 [facility] RBC (Bld) [#/Vol] 4.06 10*6/uL Normal 3.90-5.20 [facility] WBC (Bld) [#/Vol] 10.80 10*3/uL Normal 3.70-11.00 [facility] CONSULTon 12-19-2020 CONSULT HNO ID: [id number] Author: Ruddy Parrish MD Service: Orthopaedic Surgery Author Type: [...] Applicator by RECTA (more content not included)... [facility] CONSULT PROGoritika 12-19-2020 CONSULT PROG HNO ID: [id number] Author: Royer Winslow RPh Service: Pharmacy Author Type: Pharmacist Type: [...] have any questions[place] [phone]. Age: [age] year old Allergies: ALLERGIES Allergen Reactions - Nsaids (Non-Steroid* GI Upset - Gabapentin GI Upset - Macrobid [Nitrofura* Hives - Tramadol Contraindication-Medi mike Surgical Drug interaction with amitriptyline - told not to take due to increased seizure risk - [place] [Hydrocodone-* GI Upset Didn't do anything for her pain Last 3 Encounter Wt Readings: Date: Wt: 12/19/2020 105.2 kg (232 lb) 12/14/2019 109.8 kg (242 lb) 11/04/2019 110 kg (242 lb 8.1 oz) Last 1 Encounter Ht Readings: Date: Ht: 12/19/2020 180.3 cm (5' 11") CrCl: 93 mL/min Temp (24hrs), Av.7 ?C [...] 24.4 (H) 11/09/2019 0700 13.3 Royer Winslow, [facility] Normal [facility] Coronavirus 2019on SARS-CoV-2 (COVID-19) RNA TANVIR+probe Ql (Unsp spec) UPPER RESPIRATORY TRACT SWAB Normal [facility] Comment on above: Performed By: #### C OVID ####[facility] [place], [place] [phone] SARS-CoV-2 (COVID-19) RNA TANVIR+probe Ql (Unsp spec) Negative for COVID19 (SARS CoV2) by RT-PCR or equivalent method. Normal Negative for COVID19 (SARS CoV2) by RT-PCR or equivalent method. [facility] Comment on above: Result Comment: This test was developed and its performance characteristics determined by [facility]'s [facility] [place]. This test has been authorized by FDA under an Emergency Use Authorization (EUA). This test has been validated in accordance with the FDA's Guidance Document "Policy for Diagnostics Testing in Laboratories Certified to Perform High Complexity Testing under CLIA prior to Emergency use Authorization for Coronavirus Disease 2019 during the Public Health Emergency" issued on July 30, 2019. Test performed by [facility], [facility] [place], [address] [place], [place] [address]. Performed By: #### C OVID ####[place] [address] [place], [place] [phone] ED NOTEon 12-19-2020 ED NOTE HNO ID: [id number] Author: ADILENE Guardado Service: ? Author Type: Patient Care Turner Machine Type: ED Notes Filed: 12/19/2020 10:02 AM Note Text: Patient states that she is frustrated with care and is in 9/10 pain. Nurse is notified and aware. At this time an external female catheter has also been placed for adequate voiding. [facility] ED NOTE HNO ID: [id number] Author: Joselin Jeff RN Service: ? Author Type: Registered Nurse Type: ED Notes Filed: 12/19/2020 7:04 AM Note Text: Covid obtained and walked to lab [facility] ED NOTE HNO ID: [id number] Author: Joselin Jeff RN Service: ? Author Type: Registered Nurse Type: ED Notes Filed: 12/19/2020 3:27 AM Note Text: [facility] ED NOTE HNO ID: [id number] Author: Joselin Jeff RN Service: ? Author Type: Registered Nurse Type: ED Notes Filed: 12/19/2020 2:26 AM Note Text: Sent from [facility] ER for possible right knee infection. Right knee replaced recently. Patient c/o 10/10 pain. Placed on O2 by squad for pulse ox at 90% on room air upon arrival. Placed on 3L here for pulse ox at 90% on 2 liters NC. [facility] ED PROV NOTEon 12-19-2020 ED PROV NOTE HNO ID: [id number] Author: Russell Holley, Service: ? Author Type: [...] had prior knee replacement surgery here at [place]. He was sent for rule out septic [...] take due to increased seizure risk - [place] [Hydrocodone-* GI Upset Didn't do anything for [...] 62 Temp 98.6 Resp 16 Ht 5' 11" (1.80m) Wt 232 lb (105.2kg) SpO2 90% [...] Impression Clinical Impressions as of Dec 19 534 Pyogenic arthritis of right knee joint, due [...] SIGNATURE: DO Russell Fernandez DO 12/19/20 0536 [facility] Fungal Cult / Smearon 2020 Fungal Cult / Smear Sp. Request/Comment: - Specimen received in sterile container. Smear Result - No fungus seen. Culture Result - No Fungus isolated after 30 days [facility] Comment on above: Performed By: #### F CUL ####[facility] [place], [place] [phone] HISTORY PHYSICALon HISTORY PHYSICAL HNO ID: [id number] Author: Angelia Pitt APRN.ENERGY DERIVATIVES TRADER Service: Hospital Medicine Author Type: Nurse Practitioner [...] BP allows SIGNATURE: Rufino Torres MD PAGER: [phone] ( please page [phone] between 5 pm and 7 am) DATE of SERVICE: December 19, 2020 TIME of SERVICE: 11:24 AM DEPARTMENT OF HOSPITAL MEDICINE HISTORY AND PHYSICAL EXAM SERVICE DATE: 12/19/2020 SERVICE TIME: 10:09 AM w Primary Care Physician: Moreno Oates MD NIGHT AND WEEKEND COVERAGE: [facility] COVERAGE: Patient admitted to hospital medicine From 0700 - 1630, please contact pager [phone] for patient issues. From 1630 - 0700, please contact the Night Hospitalist on pager [phone] for patient issues. Subjective CHIEF COMPLAINT: Right [...] take due to increased seizure risk - [place] [Hydrocodone-* GI Upset Didn't do anything for [...] 68 Temp 98.6 Resp 17 Ht 5' 11" (1.80m) Wt 232 lb (105.2kg) SpO2 94% BMI 32.37 kg/(m2). O2 Therapy: Nasal Cannula, Liters: 2 Physical Exam Performed: Physical Exam Constitutional: Appearance: She is obese. Comments: Sleepy disheveled. Awakens from deep sleep( requires loud verbalization to awaken) Immediately complains of pain upon awakening and upset that she did not get "pain pill" Shares that she takes Valium daily a (more content not included)... [facility] NURSING PROGon 12-19-2020 NURSING PROG HNO ID: [id number] Author: Senait Girard RN Service: Nursing Author Type: Registered Nurse Type: Nursing Progress Note Filed: 12/19/2020 1:42 PM Note Text: Right Femoral Nerve Block SS Dr. Ky YEE Patient verbalized her understanding of the nerve block procedure [facility] NURSING PROG HNO ID: [id number] Author: Terry Moreau RN Service: Nursing Author Type: Registered Nurse Type: Nursing Progress Note Filed: 12/19/2020 7:33 PM Note Text: Nursing Progress Note PATIENT NAME: Charlie Nguyen PATIENT LOCATION: [place] [address]/[facility]-[address]-P Daily note: 1315 Patient arrived to [facility] in stable condition. Oriented to room and call light system. Updated on pain management board. Skin assessment completed. Report given to Preop Nurse by phone for OR. 1320 UA/UC sent to lab. [phone] Patient off unit in surgery. Report given to on coming night JENN magana. This note was completed by: Terry Davidson RN BSN [facility] OPERATIVE NOon 12-19-2020 OPERATIVE NO HNO ID: [id number] Author: Ruddy Parrish MD Service: Orthopaedic Surgery Author Type: Physician Type: Operative Report Filed: 12/20/2020 11:35 AM Note Text: OPERATIVE/PROCEDURE REPORT LOG ID: [id number] SURGERY/PROCEDURE DATE: 12/19/2020 INCISION/PROCEDURE START TIME: 4:26 PM INCISION CLOSE/PROCEDURE END TIME: 6:06 PM SURGEON(S)/PROCEDURAL IST(S) AND NETWORK SYSTEMS CONSULTANT(S): Surgeon(s) and Role: * Ruddy Parrish MD - Primary * Trish Moran DO - Resident - Assisting * Chris Finn MD - Fellow No Additional Staff Surgeon: Ruddy Parrish MD Procedure(s): Right knee arthrotomy with irrigation and debridement (with polyethylene exchange)- CPT 40816-39 A 22 modifier is added to the [...] the assistants with me immediately available. IMPLANTS: Kimmie MR 13 mm polyethylene and hinge components ESTIMATED BLOOD LOSS: 150 cc DRAINS: None SPECIMENS: To microbiology for culture and pathology. COMPLICATIONS: None. POSTOPERATIVE PLAN: Infectious Disease will be consulted and antibiotics will be tailored based on the culture results. VTE prophylaxis: Lovenox -> Eliquis Weightbearing status: WBAT SIGNATURE: Ruddy Parrish MD PATIENT NAME: Charlie Nguyen DATE: December 20, 2020 TIME: 11:35 AM Normal [facility] Protimeon 12-19-2020 PT INR 1.0 Normal 0.9-1.3 [facility] Comment on above: Result Comment: Selina min K Antagonist (VKA) Therapeutic Range: INR 2 to 3 (Target INR of 2.5) Note: For patients treated with VKA drugs, such as warfarin, the [place] [employer] 2012 Guideline recommends [...] to 3.5 (target INR of 3). Prem DONAHUE, et al. Chest 2012, 141:7S-47S Heather ESPINOZA, et al. JAC 2017, 70: 252-289 PT Sec 10.9 sec Normal 9.7-13.0 [facility] Routine Analysis (Synovial F ld)on 12-19-2020 Clarity (U) Cloudy Critically abnormal Clear [facility] Comment on above: Performed By: #### R TSYNF ####[place] [address] [place], [place] [phone] Color (U) Julianna Critically abnormal Yellow [facility] Comment on above: Performed By: #### R TSYNF ####[facility] [place] [address], [place] [phone] Crystals LM Nom (Urine sed) None seen Normal None seen [facility] Comment on above: Performed By: #### R TSYNF ####[facility] [address] [place] [address], [place] [phone] Lymphocytes/100 WBC (Bld) 3 % Normal [facility] Comment on above: Performed By: #### R TSYNF ####[facility] [address], [place] [phone] Monocytes/100 WBC (Bld) 5 % Normal [facility] Comment on above: Performed By: #### R TSYNF ####[facility] [address], [place] [phone] Neutrophils/100 WBC (Bld) 92 % High 0-25 [facility] Comment on above: Performed By: #### R TSYNF ####[facility], [place] [phone] Path Interp Crystals SEE COMMENT Normal [facility] Comment on above: Result Comment: Revi ewed by Kvng Harris M.D., Ph.D ([id number]) Performed By: #### R YELITZAF ####[place] [phone] RBC (Bld) [#/Vol] 0.009 10*6/uL High <2000 [facility] Comment on above: Performed By: #### R YELITZAF ####[place] [address] [place] [phone] Site Right Knee Normal [facility] Comment on above: Performed By: #### R YELITZAF ####[place] [address] [place] [phone] Slide [id number] [facility] Comment on above: Performed By: #### R YELITZAF ####[place] [address] [place] [phone] Spec Site, Crystal Right Knee Normal [facility] Comment on above: Performed By: #### R YELITZAF ####[place] [phone] Suprntnt Clarity Clear Normal [facility] Comment on above: Performed By: #### R YELITZAF ####[place] [address] [place] [phone] Suprntnt Color Yellow Critically abnormal Colorless [facility] Comment on above: Performed By: #### R TSYNF ####[place] [address] [place] [address] [phone] SYNOVIAL COMMENT SEE COMMENT Normal [facility] Comment on above: Result Comment: PREL IMINARY REPORT No diagnostic crystals seen. SEE FINAL SYN FLD PATH REVIEW No malignant cells, no microorganisms Performed By: #### R TSYNF ####[place] [address] [place] [address] [place] [phone] Synovial Path Interp SEE COMMENT Normal [facility] Comment on above: Result Comment: Revi ewed by Kvng Harris M.D., Ph.D ([id number]) Performed By: #### R TSYNF ####[facility] [place], [place] [phone] [place] [address] /uL High 0-200 [facility] Comment on above: Performed By: #### R TSYNF ####[facility] [place], [place] [phone] SURGICAL PATHOLOGYon 021 SURGICAL PATHOLOGY Specimen originated from [facility] Specimen #: [id number] Submitting Physician: MARICEL LEVY FINAL DIAGNOSIS Right knee hardware, removal - Components of a knew prosethesis (gross examination only). MORENITA/SEA/priti 12/20/2020 Royer Wheatley M.D. (Electronic Signature) ____ SPECIMEN SUBMITTED A: INFECTED HARDWARE RIGHT KNEE CLINICAL DATA REVISION JOINT TOTAL KNEE ONE COMPONENT, JOINT INFECTION (HCC), PYOGENIC ARTHRITIS OF RIGHT KNEE JOINT, DUE TO UNSPECIFIED ORGANISM (HCC) GROSS DESCRIPTION A. Received fresh labeled "infected hardware right knee" are components to a knee prosthesis. A polyethylene spacer component is identified measuring 6.5 x 3.8 x 1.5 cm. This device is inscribed "13 mm, XSML/SML/S1/S2, 6481-3-213, CLX369". The articular surface is smooth and unremarkable. Also identified is a chavez-metallic stemmed tibial tray component measuring 7.5 x 5.6 x 3.7 cm. This device is inscribed 102500, 6481-2-100, XSML-XLG". The outer surface is unremarkable. Also identified is a chavez - metallic surgical annemarie measuring 6.0 cm in length x 1.0 cm in diameter. This device is inscribed [id number], 6481-2-120". The outer surface is unremarkable. Also identified are 4 chavez polyethylene, irregular components, measuring 2.1 to 4.1 cm in greatest dimension, and 6.0 x 4.0 x 2.2 cm in aggregate. The largest device bears no inscription. The second largest device is inscribed "[id number], neutral". The smaller devices are inscribed JL609, 6481-2-110" and "JM913, 6481-2-110". No tissue is present. No sections are submitted. The specimen is reviewed with Dr. Wheatley. ILDA/priti 12/20/2020 HE PATIENT Gross examination performed at [facility], [address] [place] [address] Date of Report: 12/21/2020 Date of Procedure: 12/19/2020 Date of Receipt: 12/20/2020 Submitted by: MARICEL LEVY Additional Physician(s): RUFINO Gong FUQUAY VARINA Location: 4A ORTHO/VASCULAR Diagnostic [place] [address]. CLIA Number: [id number] Normal [facility] Tissue Cult / Stainon 2020 Tissue Cult / Stain Sp. Request/Comment: - Specimen received in sterile container. Smear Result - No organisms seen No Polymorphonuclear Leukocytes Culture Result - No growth 14 days [facility] Comment on above: Performed By: #### T ISCUL ####[facility] [id number] [place], [place] [address] [phone] Tissue Cult / Stain Sp. Request/Comment: - Specimen received in sterile container. Smear Result - No organisms seen No Polymorphonuclear Leukocytes Culture Result - No growth 14 days [facility] Comment on above: Performed By: #### T ISCUL ####[facility] [address] [place], [place] [address]ZtxvxknsfC[facility] [place], [place] [phone] Tissue Cult / Stain Sp. Request/Comment: - Specimen received in sterile container. Smear Result - No organisms seen No Polymorphonuclear Leukocytes Culture Result - No growth 14 days Normal [facility] Comment on above: Performed By: #### T ISCUL ####[facility] [id number] [place], [place] [address] [phone] Urinalysison 12-19-2020 Bacteria 1+ /HPF Critically abnormal Negative [facility] Bilirubin, Urine Negative Normal Negative [facility] Clarity (U) Turbid Critically abnormal Clear [facility] Color (U) Yellow Critically abnormal Yellow [facility] Comments SEE COMMENT Normal [facility] Comment on above: Result Comment: Micr oscopic Examination Performed Epithelial cells LM Ql (Urine sed) SEE COMMENT Critically abnormal Occasional [facility] Comment on above: Result Comment: 2+ Squamous Epithelial Cells Glucose Ql (U) Negative Normal Negative [facility] Hemoglobin/Blood,Ur 2+ Critically abnormal Negative [facility] Ketones Ql (U) Negative Normal Negative [facility] Leukest 500 Critically abnormal Negative [facility] Nitrite Ql (U) Negative Normal Negative [facility] pH (U) 6.0 [pH] Normal 5.0-8.0 [facility] Protein, Urine 1+ Critically abnormal Negative [facility] RBC 51-100 Critically abnormal 0-3 [facility] Specific [place], Ur 1.017 Normal 1.005-1.030 [facility] Urine, Other FOR EAST USE ONLY SEE COMMENT Normal [facility] Comment on above: Result Comment: 1+ Mucous Urobilinogen (U) [Mass/Vol] Negative Normal 0.2-1.0 [facility] WBC 100+ /HPF Critically abnormal 0-5 [facility] Urine Cultureon 12-19-2020 Bacteria identified Cx Nom (U) Sp. Request/Comment: - Specimen received in preservative Culture Result - >=100,000 CFU/ml Pseudomonas aeruginosa --> ABNORMAL ALERT ORGANISM: Pseudomonas aeruginosa METHOD: Minimum inhibitory concentration(Vitek) Antibiotic Interp ANDREA Status Gentamicin SUSCEPTIBLE <=1 F Ciprofloxacin SUSCEPTIBLE <=0.25 F Cefepime SUSCEPTIBLE <=1 F Piperacillin/Tazobac SUSCEPTIBLE <=4 F Meropenem INTERMEDIATE 4 F Critically abnormal [facility] Comment on above: Performed By: #### U RCUL ####[facility] [id number] [place], [place] [id number] XR CHEST 1V FRONTAL PORTon 0 12-19-2020 [...] MD on Dec 19 2020 7:59PM EST [id number] N Normal [facility] XR KNEE 2V AP/LAT RTon 12-19 XR [...] Dec 19 2020 7:35PM EST [id number] N [facility] XR KNEE 4V AP/LAT/OBLS RTon 12-19-2020 XR [...] Dec 19 2020 3:46AM EST [id number] N [facility] Basic Metabolic PanelOrdered By: Jorge Mejia on 12-18-2020 Anion gap [Moles/Vol] 4 mmol/L 3 - 13 mmol/L [facility] Work Phone: Calcium [Mass/Vol] 8.6 mg/dL 8.4 - 10. 4 mg/dL [facility] Work Phone: Chloride [Moles/Vol] 103 mmol/L 98 - 10 7 mmol/L [facility] Work Phone: CO2 [Moles/Vol] 27 mmol/L 22 - 30 mmol/L [facility] Work Phone: Creatinine [Mass/Vol] 0.79 mg/dL 0.52 - 1.25 mg/dL [employer] Work Phone: EGFR IF NonAfrican Peruvian 78.8 mL/min >60 [facility] Work Phone: Comment on above: KDIGO guidelines [...] MDRD (S/P/Bld) [Vol rate/Area] mL/min/{1.73_m2} >60 mL/min [employer] Work Phone: Glucose [Mass/Vol] 96 mg/dL 70 - 100 mg/dL [employer] Work Phone: Interpretation and review of laboratory results Abnormal [employer] Work Phone: Potassium [Moles/Vol] 4.0 mmol/L 3.5 - 5.1 mmol/L [facility] Work Phone: Sodium [Moles/Vol] 134 mmol/L Low 135 - 145 mmol/L [employer] Work Phone: Urea nitrogen (BldV) [Mass/Vol] 20 mg/dL 7 - 20 mg/dL [facility] Work Phone: Test Performed by [employer] [facility] [address] , [place], [place] [address] [employer] Work Phone: [employer] Work Phone: C-REACTIVE PROTEINOrdered By : Jorge Mejia on 12-18-2020 CRP [Mass/Vol] 237 mg/L High 0.0 - 6.0 mg/L [facility] Work Phone: Comment on above: . Interpretation and review of laboratory results Abnormal [facility] Work Phone: 1 Test Performed by [facility], [address] [place] [address] , [place] [address] [facility] Work Phone: [employer] Work Phone: Hemogram (CBC) w/Auto DiffOr dered By: Jorge Mejia on 12-18-2020 Absolute Baso # 0.1 10*3/uL 0.0 - 0.2 10*3/uL [facility] Work Phone: Absolute Neut # 8.5 10*3/uL High 1.8 - 7.0 10*3/uL [facility] Work Phone: Basophils/100 WBC (Bld) 0.5 % 0.0 - 2.0 % [facility] Work Phone: Eosinophils (Bld) [#/Vol] 0.1 10*3/uL 0.0 - 0.5 10*3/uL [facility] Work Phone: Eosinophils/100 WBC (Bld) 0.5 % Low 1.0 - 6.0 % [facility] Work Phone: Granulocytes/100 WBC (Bld) 73.0 % 40.0 - 80.0 % [facility] Work Phone: Hematocrit (Bld) [Volume fraction] 37.1 % 35.0 - 47.0 % [facility] Work Phone: Hemoglobin.gastrointesti nal spec 1 Ql (Stl) 12.2 g/dL 11.7 - 16.0 g/dL [facility] Work Phone: Interpretation and review of laboratory results Abnormal [facility] Work Phone: Lymphocytes (Bld) [#/Vol] 2.0 10*3/uL 1.0 - 4.3 10*3/uL [facility] Work Phone: 1 22 Lymphocytes/100 WBC (Bld) 17.1 % Low 20.0 - 40.0 % [facility] Work Phone: MCH (RBC) [Entitic mass] 31.5 pg 26. 0 - 34.0 pg [facility] Work Phone: MCHC (RBC) [Mass/Vol] 32.9 % 32.0 - 36.0 % [employer] Work Phone: MCV (RBC) [Entitic vol] 95.7 fL 79.0 - 98.0 fL [employer] Work Phone: Monocytes (Bld) [#/Vol] 1.0 10*3/uL High 0.0 - 0.8 10*3/uL [employer] Work Phone: Monocytes/100 WBC (Bld) 8.9 % 2.0 - 10.0 % [employer] Phone: Platelet distribution width (Bld) [Ratio] 15.6 % High 11.5 - 14.5 % [employer] Work Phone: Platelet mean volume (Bld) [Entitic vol] 8.4 fL 7.4 - 10.4 fL [employer] Work Phone: Platelets (Bld) [#/Vol] 188 10*3/uL 140 - 440 10*3/uL [employer] Work Phone: RBC (Bld) [#/Vol] 3.88 10*6/uL 3.80 - 5.2 0 10*6/uL [employer] Work Phone: WBC (Bld) [#/Vol] 11.7 10*3/uL High 3.6 - 10.7 10*3/uL [employer] Work Phone: Test Performed by [facility], [facility] [address] , [place], [place] [address] [employer] Work Phone: [employer] Work Phone: Lactic Acid, PlasmaOrdered B y: Jorge Mejia on 12-18-2020 Lactate [Moles/Vol] 0.7 mmol/L 0.7 - 2. 0 mmol/L [facility] Work Phone: [phone] Test Performed by [employer] [address] , [place], [place] [address] Work Phone: [phone] [facility] Work Phone: [phone] Sedimentation RateOrdered By : Jorge Mejia on 12-18-2020 Interpretation and review of laboratory results Abnormal [facility] Work Phone: [phone] Sed Rate 30 mm/h High 0 - 20 mm/h [facility] Work Phone: [phone] Test Performed by [employer] [address] , [address] Work Phone: [phone] [facility] Work Phone: [phone] XR KNEE RIGHT (3 VIEWS)Order ed By: Jorge Mejia on 12-18-2020 Patient Name: CHARLIE NGUYEN Diagnostic Radiology ACCESSION EXAM DATE/TIME PROCEDURE ORDERING PROVIDER [id number] 12/18/2020 21:31 EDT CR Knee 3 Views Right MD MEJIA VIJAY CPT code 98322 Reason For Exam (CR Knee 3 Views [...] WENDELL Transcribed Date and Time: 12/18/2020 9:43 [facility] Work Phone: [facility], [facility] Incoming Rad[facility] Results From [facility] - 12/18/2020 9:43 PM EDT Patient Name: CHARLIE NGUYENN: [id number] [id number] Diagnostic Radiology ACCESSION EXAM DATE/TIME PROCEDURE ORDERING PROVIDER [id number] 12/18/2020 21:31 EDT CR Knee 3 Views Right MD MEJIA VIJAY CPT code 02620 Reason For Exam (CR Knee 3 Views [...] WENDELL Transcribed Date and Time: 12/18/2020 9:43 [facility] Work Phone: [facility] Work Phone: Basic Metabolic Panelon 09-0 Anion gap [Moles/Vol] 8 mmol/L [place] Calcium [Mass/Vol] 8.1 mg/dL Low 8.4 - 10. 4 mg/dL [place] Chloride [Moles/Vol] 101 mmol/L 98 - 10 7 mmol/L [place] CO2 [Moles/Vol] 26 mmol/L 22 - 30 mmol/L [place] Creatinine [Mass/Vol] 0.56 mg/dL 0.52 - 1.25 mg/dL [place] EGFR IF NonAfrican Peruvian >90.0 >60 mL/min [place] Comment on above: KDIGO guidelines pro [...] MDRD (S/P/Bld) [Vol rate/Area] mL/min/{1.73_m2} >60 mL/min [place] Glucose [Mass/Vol] 82 mg/dL 70 - 100 mg/dL [place] Interpretation and review of laboratory results Abnormal [place] Potassium [Moles/Vol] 4.2 mmol/L 3.5 - 5.1 mmol/L [place] Sodium [Moles/Vol] 135 mmol/L 135 - 145 mmol/L [place] Urea nitrogen [Mass/Vol] 28 mg/dL High 7 - 20 mg/d L [place] Test Performed by [facility], [address] [place], [place] [address] [place] CBC Auto Differentialon 09-0 Absolute Baso # 0.1 10*3/uL 0 - 0.2 10*3/uL [place] Absolute Neut # 4.2 10*3/uL 1.8 - 7 10*3/uL [place] Basophils/100 WBC (Bld) 1.1 % 0 - 2 % [place] Eosinophils (Bld) [#/Vol] 0.5 10*3/uL 0 - 0.5 10*3/uL [place] Eosinophils/100 WBC (Bld) 6.4 % High 1 - 6 % [place] Erythrocyte distribution width (RBC) [Ratio] 16.2 % High 11.5 - 14.5 % [place] Granulocytes/100 WBC (Bld) 56.3 % 40 - 80 % [place] Hematocrit (Bld) [Volume fraction] 40.0 % 35 - 47 % [place] Hemoglobin (Bld) [Mass/Vol] 12.6 g/dL 11.7 - 16 g/dL [place] Interpretation and review of laboratory results Abnormal [place] Lymphocytes (Bld) [#/Vol] 1.8 10*3/uL 1 - 4.3 10*3/uL [place] Lymphocytes/100 WBC (Bld) 24.4 % 20 - 40 % [place] MCH (RBC) [Entitic mass] 27.4 pg 26 - 34 pg [place] MCHC (RBC) [Mass/Vol] 31.5 % Low 32 - 36 % [place] MCV (RBC) [Entitic vol] 87.0 fL 79 - 98 fL [place] Monocytes (Bld) [#/Vol] 0.9 10*3/uL High 0 - 0.8 10*3/uL [place] Monocytes/100 WBC (Bld) 11.8 % High 2 - 10 % [place] Platelet mean volume (Bld) [Entitic vol] 8.5 fL 7.4 - 10.4 fL [place] Platelets (Bld) [#/Vol] 291 10*3/uL 140 - 440 10*3/uL [place] RBC (Bld) [#/Vol] 4.60 10*6/uL 3.8 - 5.2 10*6/uL [place] WBC (Bld) [#/Vol] 7.5 10*3/uL 3.6 - 10.7 10*3/uL [place] Test Performed by [facility], [address] [place], [place], [place] [address] [place] [address] Basic Metabolic Panelon 09-0 Anion gap [Moles/Vol] 4 mmol/L [place] Calcium [Mass/Vol] 8.0 mg/dL Low 8.4 - 10. 4 mg/dL [place] Chloride [Moles/Vol] 108 mmol/L High 98 - 10 7 mmol/L [place] CO2 [Moles/Vol] 28 mmol/L 22 - 30 mmol/L [place] Creatinine [Mass/Vol] 0.63 mg/dL 0.52 - 1.25 mg/dL [place] EGFR IF NonAfrican Peruvian >90.0 >60 mL/min [place] Comment on above: KDIGO guidelines pro [...] MDRD (S/P/Bld) [Vol rate/Area] mL/min/{1.73_m2} >60 mL/min [place] Glucose [Mass/Vol] 90 mg/dL 70 - 100 mg/dL [place] Interpretation and review of laboratory results Abnormal [place] Potassium [Moles/Vol] 4.0 mmol/L 3.5 - 5.1 mmol/L [place] Sodium [Moles/Vol] 140 mmol/L 135 - 145 mmol/L [place] Urea nitrogen [Mass/Vol] 27 mg/dL High 7 - 20 mg/d L [place] Test Performed by [facility], [address] [place], [place] [address] [place] CBC Auto Differentialon - Erythrocyte distribution width (RBC) [Ratio] 16.0 % High 11.5 - 14.5 % [place] Hematocrit (Bld) [Volume fraction] 37.6 % 35 - 47 % [place] Hemoglobin (Bld) [Mass/Vol] 11.9 g/dL 11.7 - 16 g/dL [place] Interpretation and review of laboratory results Abnormal [place] MCH (RBC) [Entitic mass] 27.2 pg 26 - 34 pg [place] MCHC (RBC) [Mass/Vol] 31.6 % Low 32 - 36 % [place] MCV (RBC) [Entitic vol] 86.3 fL 79 - 98 fL [place] Platelet mean volume (Bld) [Entitic vol] 8.7 fL 7.4 - 10.4 fL [place] Platelets (Bld) [#/Vol] 298 10*3/uL 140 - 440 10*3/uL [place] RBC (Bld) [#/Vol] 4.36 10*6/uL 3.8 - 5.2 10*6/uL [place] WBC (Bld) [#/Vol] 6.4 10*3/uL 3.6 - 10.7 10*3/uL [place] Test Performed by [facility], [address] [place] [address] [place] COVID-19on 02-02-2020 SARS-CoV-2 Not Detected Expected Result: Not Detected _ Real-time, RT-PCR performed on the [employer] by the [facility]. Negative results do not preclude SARS-CoV-2 infection and should not be used as the sole basis for treatment or other patient management decisions. This assay was developed by [employer] and distributed under an Emergency Use Authorization (EUA) granted by the FDA for the qualitative detection of SARS-CoV-2 nucleic acid. [place], [place] Test Performed by [facility], [address] [place] [id number] Specimen Source Comment:Nasopharyngea l Swab [place], [place] Manual Differentialon 2019 Absolute Baso # 0.0 10*3/uL 0 - 0.2 10*3/uL [place] Absolute Eos # 0.3 10*3/uL 0 - 0.5 10*3/uL [facility] [place], [place] Absolute Lymph # 1.7 10*3/uL 1.1 - 4.5 10*3/uL [facility], [place] Absolute [place] # 0.8 10*3/uL 0.2 - 1.1 10*3/uL [facility] [place], [place] Absolute Neut # 3.6 10*3/uL 2.2 - 8.2 10*3/uL [facility] [place], [place] Anisocytosis Ql (Bld) Slight [facility] [place], [place] Bands 1 % 0 - 3 % [facility] [place], [place] Basophils 0 % 0 - 2 % [facility] [place] Eosinophils 5 % 1 - 6 % [facility] [place] Hypochromia Slight [facility] [place] Interpretation and review of laboratory results Abnormal [facility], [place] Lymphocytes 27 % 20 - 40 % [facility]- [place], [place] Monocytes 12 % High 2 - 10 % [facility] [place] PLATELETS, LARGE Slight [facility], [place] Poikilocytes Slight [facility], [place] RBC morphology finding Nom (Bld) ABNORMAL [facility], [place] Seg Neutrophils 55 % 40 - 80 % [facility] [place] TOTAL CELLS COUNTED 100 [facility], [place] Test Performed by [facility], [address] [place], [place] [address] [facility], [place] Otheron 02-02-2020 Blood Culture, Routine No growth at 5 days. [place], [place] Test Performed by [employer] [address] [place] [address] Specimen Source Comment:Blood [facility], [place] XR CHEST PORTABLEon 02-02-20 20 Rodol[place], [facility] Incoming Radiology Results From [facility] - 02/02/2020 7:39 PM EDT Patient Name: CHARLIE NGUYEN ---Diagnostic Radiology--- Exam Date/Time 02/02/2020 16:25:00 EDT Exam CR Chest Portable Ordering Physician YAMILKA STEWART Accession Number [id number] CPT4 Codes 49286 () Reason For Exam hypoxia Report CHEST [...] AHMAD Transcribed Date and Time: 02/02/2020 7:38 [place] Patient Name: CHARLIE NGUYEN ---Diagnostic Radiology--- Exam Date/Time 02/02/2020 16:25:00 EDT Exam CR Chest Portable Ordering Physician YAMILKA STEWART Accession Number [id number] CPT4 Codes 22995 () Reason For Exam hypoxia Report CHEST [...] AHMAD Transcribed Date and Time: 02/02/2020 7:38 [place] NM BONE SCAN LIMITEDon 01-31 Patient Name: CHARLIE NGUYEN ---Nuc Med--- Exam Date/Time 02/01/2020 13:27:26 EDT Exam NM Bone Imaging Limited Ordering Physician DEJA KOEHLER Accession Number [id number] CPT4 Codes 41008 () Reason For Exam R TKA pain [...] R Transcribed Date and Time: 02/01/2020 3:37 [place] [facility], [facility] Incoming Radiology Results From [facility] - 02/01/2020 3:38 PM EDT Patient Name: CHARLIE NGUYEN ---Nuc Med--- Exam Date/Time 02/01/2020 13:27:26 EDT Exam NM Bone Imaging Limited Ordering Physician DEJA KOEHLER Accession Number [id number] CPT4 Codes 01383 () Reason For Exam R TKA pain [...] R Transcribed Date and Time: 02/01/2020 3:37 [place], [place] Basic Metabolic Panelon 09-0 Anion gap [Moles/Vol] 11 mmol/L [place] Calcium [Mass/Vol] 9.0 mg/dL 8.4 - 10. 4 mg/dL [place] Chloride [Moles/Vol] 105 mmol/L 98 - 10 7 mmol/L [place] CO2 [Moles/Vol] 24 mmol/L 22 - 30 mmol/L [place] Creatinine [Mass/Vol] 0.41 mg/dL Low 0.52 - 1.25 mg/dL [place] EGFR IF NonAfrican [place]uvian >90.0 >60 mL/min [place] Comment on above: KDIGO guidelines pro [...] MDRD (S/P/Bld) [Vol rate/Area] mL/min/{1.73_m2} >60 mL/min [place] Glucose [Mass/Vol] 93 mg/dL 70 - 100 mg/dL [place] Interpretation and review of laboratory results Abnormal [place] Potassium [Moles/Vol] 3.7 mmol/L 3.5 - 5.1 mmol/L [place] Sodium [Moles/Vol] 140 mmol/L 135 - 145 mmol/L [place] Urea nitrogen [Mass/Vol] 8 mg/dL 7 - 20 mg/d L [place] Test Performed by [facility], [address], [place], [place] [address] [place], [place] C-Reactive Proteinon 01-30- 020 CRP [Mass/Vol] 21.7 mg/L High 0 - 6 mg/L [place] Comment on above: . Interpretation and review of laboratory results Abnormal [place] Test Performed by [facility], [address], [place], [place] [address] [place], [place] CBC Auto Differentialon Absolute Baso # 0.1 10*3/uL 0 - 0.2 10*3/uL [place] Absolute Neut # 2.8 10*3/uL 1.8 - 7 10*3/uL [place] Basophils/100 WBC (Bld) 1.0 % 0 - 2 % [place], [place] Eosinophils (Bld) [#/Vol] 0.3 10*3/uL 0 - 0.5 10*3/uL [place] Eosinophils/100 WBC (Bld) 5.4 % 1 - 6 % [place] Erythrocyte distribution width (RBC) [Ratio] 15.8 % High 11.5 - 14.5 % [place] Granulocytes/100 WBC (Bld) 49.4 % 40 - 80 % [place] Hematocrit (Bld) [Volume fraction] 36.8 % 35 - 47 % [place] Hemoglobin (Bld) [Mass/Vol] 11.8 g/dL 11.7 - 16 g/dL [place] Interpretation and review of laboratory results Abnormal [place] Lymphocytes (Bld) [#/Vol] 1.9 10*3/uL 1 - 4.3 10*3/uL [place] Lymphocytes/100 WBC (Bld) 33.6 % 20 - 40 % [place] MCH (RBC) [Entitic mass] 27.6 pg 26 - 34 pg [place] MCHC (RBC) [Mass/Vol] 31.9 % Low 32 - 36 % [place] MCV (RBC) [Entitic vol] 86.4 fL 79 - 98 fL [place] Monocytes (Bld) [#/Vol] 0.6 10*3/uL 0 - 0.8 10*3/uL [place], [place] Monocytes/100 WBC (Bld) 10.6 % High 2 - 10 % [place] Platelet mean volume (Bld) [Entitic vol] 8.4 fL 7.4 - 10.4 fL [place], [place] Platelets (Bld) [#/Vol] 264 10*3/uL 140 - 440 10*3/uL [place] RBC (Bld) [#/Vol] 4.26 10*6/uL 3.8 - 5.2 10*6/uL [place] WBC (Bld) [#/Vol] 5.6 10*3/uL 3.6 - 10.7 10*3/uL [place] Test Performed by [facility], [address] [place], [place] [address] [place], [place] Sedimentation Rateon 020 Interpretation and review of laboratory results Abnormal [place], [place] Sed Rate 38 mm/h High 0 - 20 mm/h [place] Test Performed by [facility], [address] [place], [place] [id number] [place] [address] Basic Metabolic Panelon 08-3 Anion gap [Moles/Vol] 8 mmol/L [place] Calcium [Mass/Vol] 8.0 mg/dL Low 8.4 - 10. 4 mg/dL [place] Chloride [Moles/Vol] 108 mmol/L High 98 - 10 7 mmol/L [place] CO2 [Moles/Vol] 25 mmol/L 22 - 30 mmol/L [place] Creatinine [Mass/Vol] 0.4 mg/dL Low 0.52 - 1.25 mg/dL [place] EGFR IF NonAfrican Peruvian >90.0 >60 mL/min [place] Comment on above: KDIGO guidelines pro [...] MDRD (S/P/Bld) [Vol rate/Area] mL/min/{1.73_m2} >60 mL/min [place] Glucose [Mass/Vol] 95 mg/dL 70 - 100 mg/dL [place] Interpretation and review of laboratory results Abnormal [place] Potassium [Moles/Vol] 3.9 mmol/L 3.5 - 5.1 mmol/L [place] Sodium [Moles/Vol] 140 mmol/L 135 - 145 mmol/L [place] Urea nitrogen [Mass/Vol] 13 mg/dL 7 - 20 mg/d L [place] Test Performed by [facility], [address] [place], [place] [id number] [place] [address] CBC Auto Differentialon 08-3 Absolute Baso # 0.1 10*3/uL 0 - 0.2 10*3/uL [place] Absolute Neut # 4.6 10*3/uL 1.8 - 7 10*3/uL [place] Basophils/100 WBC (Bld) 1.1 % 0 - 2 % [place] Eosinophils (Bld) [#/Vol] 0.5 10*3/uL 0 - 0.5 10*3/uL [place] Eosinophils/100 WBC (Bld) 6.6 % High 1 - 6 % [place] Erythrocyte distribution width (RBC) [Ratio] 16.4 % High 11.5 - 14.5 % [place] Granulocytes/100 WBC (Bld) 60.9 % 40 - 80 % [place] Hematocrit (Bld) [Volume fraction] 32.0 % Low 35 - 47 % [place] Hemoglobin (Bld) [Mass/Vol] 10.1 g/dL Low 11.7 - 16 g/dL [place] Interpretation and review of laboratory results Abnormal [place] Lymphocytes (Bld) [#/Vol] 1.7 10*3/uL 1 - 4.3 10*3/uL [place], [place] Lymphocytes/100 WBC (Bld) 22.6 % 20 - 40 % [place] MCH (RBC) [Entitic mass] 27.9 pg 26 - 34 pg [place] MCHC (RBC) [Mass/Vol] 31.5 % Low 32 - 36 % [place] MCV (RBC) [Entitic vol] 88.6 fL 79 - 98 fL [place] Monocytes (Bld) [#/Vol] 0.7 10*3/uL 0 - 0.8 10*3/uL [place], [place] Monocytes/100 WBC (Bld) 8.8 % 2 - 10 % [place] Platelet mean volume (Bld) [Entitic vol] 8.9 fL 7.4 - 10.4 fL [place] Platelets (Bld) [#/Vol] 257 10*3/uL 140 - 440 10*3/uL [place] RBC (Bld) [#/Vol] 3.62 10*6/uL Low 3.8 - 5.2 10*6/uL [place] WBC (Bld) [#/Vol] 7.5 10*3/uL 3.6 - 10.7 10*3/uL [place] Test Performed by [employer] [address] [place], [place], [place] [address] [place], [place] C. difficile toxin Molecular on 01-29-2020 C. difficile toxin Molecular NEGATIVE Methodology - Real Time PCR ([employer]) Clinical judgement must be used when interpreting results. Positive results may reflect colonization. Indeterminate results suggest a new specimen be submitted. [place], [place] Gastrointestinal Panel by MEI Nunn 01-29-2020 Gastrointestinal PCR Panel NEGATIVE: No targets were detected by the [email or web address] Gastrointestinal PCR Panel. _ The [email or web address] Gastrointestinal PCR Panel can detect the following targets: Campylobacter, Plesiomonas shigelloides, Salmonella, Vibrio species, Vibrio cholerae, Yersinia enterocolitica, Shiga toxin-producing E coli (STEC) including E coli O157, Enterotoxigenic E coli (ETEC), Shigella/Enteroinvasi ve E coli (EIEC), Cryptosporidium, Cyclospora cayetanensis, Entamoeba histolytica, Giardia lamblia, Adenovirus F 40/41, Astrovirus, Norovirus GI/GII, Rotavirus A, Sapovirus [place], [place] Otheron 01-29-2020 Test Performed by [facility], [address] [place] [address] Specimen Source Comment:Stool [place], [place] XR Knee Bilateral Standardon 01-29-2020 Patient Name: CHARLIE NGUYEN ---Diagnostic Radiology--- Exam Date/Time 01/29/2020 14:05:00 EDT Exam CR Knee 3 Views Bilateral Ordering Physician KILEY PARKINSON Accession Number [id number] CPT4 Codes 05750 () Reason For Exam fall, knee pain [...] KEVIN Transcribed Date and Time: 01/29/2020 3:27 [place] [facility], [facility] Incoming Radiology Results From [facility] - 01/29/2020 3:27 PM EDT Patient Name: CHARLIE NGUYEN ---Diagnostic Radiology--- Exam Date/Time 01/29/2020 14:05:00 EDT Exam CR Knee 3 Views Bilateral Ordering Physician KILEY PARKINSON Accession Number [id number] CPT4 Codes 75199 () Reason For Exam fall, knee pain [...] KEVIN Transcribed Date and Time: 01/29/2020 3:27 [place] Add On Lab Teston 01-28-2020 Sodium [Moles/Vol] Rejected [place] Test Performed by [facility], [address] [place], [place] [address] [place], [place] CBC auto differentialon 12-31 Erythrocyte distribution width (RBC) [Ratio] 16.2 % High 11.5 - 14.5 % [place] Hematocrit (Bld) [Volume fraction] 37.0 % 35 - 47 % [place] Hemoglobin (Bld) [Mass/Vol] 11.8 g/dL 11.7 - 16 g/dL [place] Interpretation and review of laboratory results Abnormal [place] MCH (RBC) [Entitic mass] 28.0 pg 26 - 34 pg [place] MCHC (RBC) [Mass/Vol] 31.8 % Low 32 - 36 % [place] MCV (RBC) [Entitic vol] 88.1 fL 79 - 98 fL [place] Platelet mean volume (Bld) [Entitic vol] 8.5 fL 7.4 - 10.4 fL [place] Platelets (Bld) [#/Vol] 280 10*3/uL 140 - 440 10*3/uL [place] RBC (Bld) [#/Vol] 4.20 10*6/uL 3.8 - 5.2 10*6/uL [place] WBC (Bld) [#/Vol] 9.1 10*3/uL 3.6 - 10.7 10*3/uL [place] Test Performed by [facility], [address], [place], [place] [address] [place] Comprehensive Metabolic Pane l w/ Reflex to MGon 01-28-2020 Albumin [Mass/Vol] 3.4 g/dL Low 3.5 - 5 g/dL [place] ALP [Catalytic activity/Vol] 98 U/L 38 - 126 U/L [place] ALT [Catalytic activity/Vol] 13 U/L 0 - 34 U/L [place] Comment on above: The ALT test is perf ormed by an updated assay method. Please note that the reference intervals have been changed and are now sex specific. Anion gap [Moles/Vol] 6 mmol/L [place] AST [Catalytic activity/Vol] 26 U/L 15 - 46 U/L [place] Bilirubin Ql (U) 0.3 mg/dL 0.2 - 1.3 mg/dL [place] Calcium [Mass/Vol] 8.0 mg/dL Low 8.4 - 10. 4 mg/dL [place] Chloride [Moles/Vol] 102 mmol/L 98 - 10 7 mmol/L [place] CO2 [Moles/Vol] 30 mmol/L 22 - 30 mmol/L [place] Creatinine [Mass/Vol] 0.46 mg/dL Low 0.52 - 1.25 mg/dL [place] EGFR IF NonAfrican [place]uvian >90.0 >60 mL/min [place] Comment on above: KDIGO guidelines pro [...] MDRD (S/P/Bld) [Vol rate/Area] mL/min/{1.73_m2} >60 mL/min [place] Glucose [Mass/Vol] 91 mg/dL 70 - 100 mg/dL [place] Interpretation and review of laboratory results Abnormal [place] Potassium [Moles/Vol] 3.2 mmol/L Low 3.5 - 5.1 mmol/L [place] Protein [Mass/Vol] 7.1 g/dL 6.3 - 8.2 g/dL [place] Sodium [Moles/Vol] 138 mmol/L 135 - 145 mmol/L [place] Urea nitrogen [Mass/Vol] 20 mg/dL 7 - 20 mg/d L [place] Test Performed by [facility], 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 : [id number] Requested By: LEW JOHNSON Order Number: [id number] Reading MD: Sulaiman Jc Measurements Intervals [place] Rate: 53 P: HI: QRS: -4 QRSD: 106 T: 244 QT: 476 QTc: 447 Interpretive Statements SINUS BRADYCARDIA BORDERLINE INTRAVENTRICULAR CONDUCTION DELAY BORDERLINE REPOLARIZATION ABNORMALITY Electronically Signed On 01-28-2020 13:03:43 EDT by Sulaiman [facility], JAIDA Rodolfo, [facility] Incoming Cardiology Results From [facility] - 01/28/2020 1:04 PM EDT [facility] Test Date: 2020-01-27 Pat Name: Charlie Nguyen Department: 01 Room: 260 Gender: F [employer] 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, [address] Manual Differentialon 2019 Absolute Baso # 0.0 10*3/uL 0 - 0.2 10*3/uL [facility] Absolute Eos # 0.1 10*3/uL 0 - 0.5 10*3/uL [facility] [place] Absolute Lymph # 1.4 10*3/uL 1.1 - 4.5 10*3/uL [facility] [place] Absolute [place] # 0.5 10*3/uL 0.2 - 1.1 10*3/uL [facility] Absolute Neut # 7.1 10*3/uL 2.2 - 8.2 10*3/uL [facility] Anisocytosis Ql (Bld) Slight [facility] [place] Bands 0 % 0 - 3 % [facility] Basophils 0 % 0 - 2 % [facility] Eosinophils 1 % 1 - 6 % [facility] Hypochromia Slight [facility] [place] Interpretation and review of laboratory results Abnormal [facility] Lymphocytes 15 % Low 20 - 40 % [facility] Monocytes 6 % 2 - 10 % [facility] Poikilocytes Slight [facility] Polychromasia Slight [facility] [place] RBC morphology finding Nom (Bld) ABNORMAL [facility] [place] Seg Neutrophils 78 % 40 - 80 % [facility] TOTAL CELLS COUNTED 100 [facility] TOXIC VACUOLES Slight [facility] [place] Test Performed by [employer] [address], [place], [place] [address] [facility], [place] ACETAMINOPHEN LEVELon 2019 Acetaminophen [Mass/Vol] <10.0 10 - 30 ug/mL [facility] [place] CBC Auto Differentialon 12-31 Absolute Baso # 0.2 10*3/uL 0 - 0.2 10*3/uL [facility] Absolute Neut # 7.0 10*3/uL 1.8 - 7 10*3/uL [facility] Basophils/100 WBC (Bld) 1.4 % 0 - 2 % M [facility] [place] Eosinophils (Bld) [#/Vol] 0.4 10*3/uL 0 - 0.5 10*3/uL [place] Eosinophils/100 WBC (Bld) 3.5 % 1 - 6 % [place] Erythrocyte distribution width (RBC) [Ratio] 16.2 % High 11.5 - 14.5 % [place] Granulocytes/100 WBC (Bld) 67.4 % 40 - 80 % [place] Hematocrit (Bld) [Volume fraction] 38.0 % 35 - 47 % [place] Hemoglobin (Bld) [Mass/Vol] 12.2 g/dL 11.7 - 16 g/dL [place] Lymphocytes (Bld) [#/Vol] 2.2 10*3/uL 1 - 4.3 10*3/uL [place] Lymphocytes/100 WBC (Bld) 21.4 % 20 - 40 % [place] MCH (RBC) [Entitic mass] 27.8 pg 26 - 34 pg [place] MCHC (RBC) [Mass/Vol] 32.0 % 32 - 36 % [place] MCV (RBC) [Entitic vol] 86.7 fL 79 - 98 fL [place], [place] Monocytes (Bld) [#/Vol] 0.7 10*3/uL 0 - 0.8 10*3/uL [place] Monocytes/100 WBC (Bld) 6.3 % 2 - 10 % [place] Platelet mean volume (Bld) [Entitic vol] 8.4 fL 7.4 - 10.4 fL [place] Platelets (Bld) [#/Vol] 318 10*3/uL 140 - 440 10*3/uL [place] RBC (Bld) [#/Vol] 4.38 10*6/uL 3.8 - 5.2 10*6/uL [place] WBC (Bld) [#/Vol] 10.5 10*3/uL 3.6 - 10.7 10*3/uL [place] CKon 01-27-2020 Total CK 31 U/L 30 - 170 U/L [place] CT Head WO Contraston 2019 Patient Name: CHARLIE NGUYEN ---CT--- Exam Date/Time 01/27/2020 17:32:[address] Head or Brain w/o Contrast Ordering Physician BENJAMIN JOHNSON DANIEL M Accession Number [id number] CPT4 Codes 18572 () Reason For Exam weakness, found on [...] WENDELL Transcribed Date and Time: 01/27/2020 5:41 [place], [place], [facility] Incoming Radiology Results From [facility] - 01/27/2020 5:41 PM EDT Patient Name: CHARLIE NGUYEN ---CT--- Exam Date/Time 01/27/2020 17:32:[address] Head or Brain w/o Contrast Ordering Physician BENJAMIN JOHNSON DANIEL M Accession Number [id number] CPT4 Codes 69369 () Reason For Exam weakness, found on [...] WENDELL Transcribed Date and Time: 01/27/2020 5:41 [place], [place] Comprehensive Metabolic Pane rafiq 01-27-2020 Albumin [Mass/Vol] 3.5 g/dL 3.5 - 5 g/dL [place] ALP [Catalytic activity/Vol] 102 U/L 38 - 126 U/L [place] ALT [Catalytic activity/Vol] 14 U/L 0 - 34 U/L [place] Comment on above: The ALT test is perf ormed by an updated assay method. Please note that the reference intervals have been changed and are now sex specific. Anion gap [Moles/Vol] 6 mmol/L [place], [place] AST [Catalytic activity/Vol] 26 U/L 15 - 46 U/L [place] Bilirubin Ql (U) 0.4 mg/dL 0.2 - 1.3 mg/dL [place] Calcium [Mass/Vol] 8.5 mg/dL 8.4 - 10. 4 mg/dL [place] Chloride [Moles/Vol] 98 mmol/L 98 - 10 7 mmol/L [place] CO2 [Moles/Vol] 35 mmol/L High 22 - 30 mmol/L [place] Creatinine [Mass/Vol] 0.61 mg/dL 0.52 - 1.25 mg/dL [place] EGFR IF NonAfrican Peruvian >90.0 >60 mL/min [place] Comment on above: KDIGO guidelines pro [...] MDRD (S/P/Bld) [Vol rate/Area] mL/min/{1.73_m2} >60 mL/min [place] Glucose [Mass/Vol] 100 mg/dL 70 - 100 mg/dL [place] Potassium [Moles/Vol] 2.6 mmol/L Critically low 3.5 - 5.1 mmol/L [place] Protein [Mass/Vol] 7.3 g/dL 6.3 - 8.2 g/dL [place] Sodium [Moles/Vol] 140 mmol/L 135 - 145 mmol/L [place] Urea nitrogen [Mass/Vol] 26 mg/dL High 7 - 20 mg/d L [place] Test Performed by [facility], [address] Magnesiumon 01-27-2020 Magnesium [Mass/Vol] 1.8 mg/dL 1.6 - 2 .3 mg/dL [place] Otheron 01-27-2020 Interpretation and review of laboratory results Abnormal [place] Test Performed by [facility], [address] Test Performed by [facility], [address] Salicylateon 01-27-2020 Salicylate Lvl <1.0 0 - 20 mg/dL [place] Troponinon 01-27-2020 Troponin I.cardiac [Mass/Vol] ng/mL 0 - 0.034 ng/mL [place], [place] Comment on above: . Test Performed by [facility], [address] Urinalysison 01-27-2020 AMORPHOUS CRYSTAL Few Abnormal Negative /[HPF] [place] Comment on above: . Appearance (U) Ex.Turbid Abnormal Clear [place] Comment on above: . Bacteria, UA Few Abnormal Negative /[HPF] [place] Comment on above: . Bilirubin Urine Negative Negative mg/dL [place] Comment on above: . Color (U) Yellow Lt. Yellow NA [place], [place] Comment on above: . Glucose, Ur Normal Normal (<70) mg/dL [place], [place] Comment on above: . Interpretation and review of laboratory results Abnormal [place] Ketones Ql (U) 10 mg/dL Abnormal Negative [place], [place] Comment on above: . LEUKOCYTES, UA 500 Abnormal Negative Simon/uL [place], [place] Comment on above: . Nitrite, Urine Negative Negative [place] Comment on above: . Non-Squamous Epithelial 2 /[HPF] Abnormal Negative [place] Comment on above: . Occult Blood,Urine 0.2 mg/dL Abnormal Negative [place], [place] Comment on above: . pH (U) 6.5 [pH] [place], [place] Comment on above: . Protein (U) [Mass/Vol] 70 mg/dL Abnormal Negative [place], [place] Comment on above: . RBC (U) [#/Vol] 11-25 Abnormal 0 - 2 /[HPF] [place], [place] Comment on above: . Specific [place], Urine 1.025 [place], [place] Comment on above: . Urobilinogen, Urine Normal Normal ( 0-1) mg/dL [place], [place] Comment on above: . WBC Clumps, Urine Moderate Abnormal Negative /[HPF] [place], [place] Comment on above: . WBC, UA >100 Abnormal 0 - 5 /[HPF] [place], [place] Comment on above: . Test Performed by [facility], [address], [place], [place] [address] [place], [place] Urine Drug Screenon 01-27-20 20 Amphetamines, urine Negative [place], [place] Barbiturates, Ur Negative [place] Benzodiazepine Ur Qual Positive [place] Cocaine Metabolites, Ur Negative [place], [place] Methadone, Urine Negative [place], [place] Opiates, Urine Negative [place], [place] Oxycodone Screen, Ur Negative [place], [place] PCP, Urine Negative [place], [place] Comment on above: The expected value [...] confirmation under separate order. Test Performed by [facility], [address], [place], [place] [address] [place] XR CHEST PORTABLEon 01-27-20 Rodolfo, [facility] Incoming Radiology Results From [facility] - 01/27/2020 6:12 PM EDT Patient Name: CHARLIE NGUYEN ---Diagnostic Radiology--- Exam Date/Time 01/27/2020 17:38:59 EDT Exam CR Chest Portable Ordering Physician BENJAMIN JOHNSON DANIEL M Accession Number [id number] CPT4 Codes 16894 () Reason For Exam weakness, cough Report [...] WENDELL Transcribed Date and Time: 01/27/2020 6:12 [place] Patient Name: CHARLIE NGUYEN ---Diagnostic Radiology--- Exam Date/Time 01/27/2020 17:38:59 EDT Exam CR Chest Portable Ordering Physician BENJAMIN JOHNSON DANIEL M Accession Number [id number] CPT4 Codes 98216 () Reason For Exam weakness, cough Report [...] WENDELL Transcribed Date and Time: 01/27/2020 6:12 [place] Sed Rateon 12-06-2019 Sed Rate 35 mm/hr High 0-20 [facility] Comment on above: Performed By: #### E SR #### [place] [address] CRPon 12-05-2019 CRP [Mass/Vol] 2.4 mg/dL High 0.0-0.8 [facility] Comment on above: Performed By: #### C RP3 #### [place] [address] Comprehensive Metabolic Pane rafiq 12-05-2019 Albumin [Mass/Vol] 3.5 g/dL Low 3.9-4.9 [facility] Comment on above: Performed By: #### C MP #### [place] [address] ALP [Catalytic activity/Vol] 75 U/L Normal 34-123 [facility] Comment on above: Performed By: #### C MP #### [place] [id number] ALT [Catalytic activity/Vol] U/L Low 7-38 [facility] Comment on above: Performed By: #### C MP #### [facility] [address] [place], [place] [address] Anion gap [Moles/Vol] 10 mmol/L Normal 9-18 [facility] Comment on above: Performed By: #### C MP #### [facility] [address] [place], [place] [address] AST [Catalytic activity/Vol] 16 U/L Normal 13-35 [facility] Comment on above: Performed By: #### C MP #### [facility] [address] [place] [address] Bilirubin [Mass/Vol] 0.2 mg/dL Normal 0.2-1.3 [facility] Comment on above: Performed By: #### C MP #### [facility] [address] [place] [address] Calcium [Mass/Vol] 8.6 mg/dL Normal 8.5-10.2 [facility] Comment on above: Performed By: #### C MP #### [facility] [address] [place] [address] Chloride [Moles/Vol] 98 mmol/L Normal 97-105 [facility] Comment on above: Performed By: #### C MP #### [facility] [address] [place] [address] CO2 Blood 27 mmol/L Normal 22-30 [facility] Comment on above: Performed By: #### C MP #### [facility] [address] [place] [address] Creatinine [Mass/Vol] 0.45 mg/dL Low 0.58-0.96 [facility] Comment on above: Performed By: #### C MP #### [facility] [address] [place] [address] Glucose [Mass/Vol] 79 mg/dL Normal 74-99 [facility] Comment on above: Result Comment: The [place] Diabetes Association (ADA) provides guidance for cutoff [...] Standards of Medical Care in Diabetes 2016; [place] Diabetes Association. Diabetes Care. 2016;39(Suppl 1). Performed By: #### C MP #### [facility] [address] [place] [address] Potassium [Moles/Vol] 4.0 mmol/L Normal 3.7-5.1 [facility] Comment on above: Performed By: #### C MP #### [place] [address] Protein [Mass/Vol] 7.1 g/dL Normal 6.3-8.0 [facility] Comment on above: Performed By: #### C MP #### [place] [address] Sodium [Moles/Vol] 135 mmol/L Low 136-144 [facility] Comment on above: Performed By: #### C MP #### [place] [address] Urea nitrogen [Mass/Vol] 12 mg/dL Normal 7-21 [facility] Comment on above: Performed By: #### C MP #### [place] [address] Hemogram/Diffon 12-05-2019 Abs Immature Grans 0.03 thou/cmm Normal 0.00-0.05 [facility] Comment on above: Performed By: #### C BCD1 #### [place] [address] Abs Neut (ANC) 5.08 thou/cmm Normal 1.56-6.13 [facility] Comment on above: Performed By: #### C BCD1 #### [place] [address] Abs. Baso 0.07 thou/cmm Normal 0.01-0.08 [facility] Comment on above: Performed By: #### C BCD1 #### [facility] [address] [place] [address] Abs. Pawnee 0.74 thou/cmm High 0.27-0.70 [facility] Comment on above: Performed By: #### C BCD1 #### [facility] [address] [place] [address] Basophils/100 WBC (Bld) 0.8 % Normal [facility] Comment on above: Performed By: #### C BCD1 #### [facility] [address] [place] [address] Eosinophils (Bld) [#/Vol] 0.57 thou/cmm High 0.00-0.31 [facility] Comment on above: Performed By: #### C BCD1 #### [facility] [address] [place] [address] Eosinophils/100 WBC (Bld) 6.6 % Normal [facility] Comment on above: Performed By: #### C BCD1 #### [facility] [address] [place] [address] Erythrocyte distribution width (RBC) [Ratio] 15.0 % High 11.7-14.4 [facility] Comment on above: Performed By: #### C BCD1 #### [facility] [address] [place] [address] Hematocrit (Bld) [Volume fraction] 34.9 % Normal 34.1-44.9 [facility] Comment on above: Performed By: #### C BCD1 #### [facility] [address] [place] [address] Hemoglobin (Bld) [Mass/Vol] 10.8 g/dL Low 11.2-15.7 [facility] Comment on above: Performed By: #### C BCD1 #### [facility] [address] [place] [address] Immature Grans 0.30 % Normal [facility] Comment on above: Performed By: #### C BCD1 #### [facility] [address] [place], [place] [address] Lymphocytes (Bld) [#/Vol] 2.20 thou/cmm Normal 1.18-3.74 [facility] Comment on above: Performed By: #### C BCD1 #### [facility] [address] [place], [place] [address] Lymphocytes/100 WBC (Bld) 25.3 % Normal [facility] Comment on above: Performed By: #### C BCD1 #### [facility] [address] [place], [place] [address] MCH (RBC) [Entitic mass] 29.8 pg Normal 25.6-32.2 [facility] Comment on above: Performed By: #### C BCD1 #### [facility] [address] [place], [place] [address] MCHC (RBC) [Mass/Vol] 30.9 % Low 31.6-34.8 [facility] Comment on above: Performed By: #### C BCD1 #### [facility] [address] [place], [place] [address] MCV (RBC) [Entitic vol] 96.1 fL High 79.4-94.8 [facility] Comment on above: Performed By: #### C BCD1 #### [facility] [address] [place], [place] [address] Monocytes/100 WBC (Bld) 8.5 % Normal [facility] Comment on above: Performed By: #### C BCD1 #### [facility] [address] [place], [place] [address] Platelet mean volume (Bld) [Entitic vol] 10.3 fL Normal 9.4-12.3 [facility] Comment on above: Performed By: #### C BCD1 #### [facility] [address] [place], [place] [address] Platelets (Bld) [#/Vol] 428 thou/cmm High 182-369 [facility] Comment on above: Performed By: #### C BCD1 #### [facility] [address] [place], [place] [address] RBC (Bld) [#/Vol] 3.63 mil/cmm Low 3.93-5.22 [facility] Comment on above: Performed By: #### C BCD1 #### [facility] [address] [place] [address] RDW SD 53.2 fl High 36.4-46.3 [facility] Comment on above: Performed By: #### C BCD1 #### [facility] [address] [place] [address] Seg Neutrophil 58.5 % Normal [facility] Comment on above: Performed By: #### C BCD1 #### [facility] [address] [place] [address] WBC (Bld) [#/Vol] 8.69 thou/cmm Normal 3.98-10.04 [facility] Comment on above: Performed By: #### C BCD1 #### [place] [address] MDRD GFRon 12-05-2019 GFR/1.73 sq M predicted among non-blacks MDRD (S/P/Bld) [Vol rate/Area] mL/min/{1.73_m2} Normal >60mL/min/1. 73m2 [facility] Comment on above: Result Comment: If t he patient is , multiply the result by 1.210. Performed By: #### G FR #### [facility] [address] [place] [address] Add On Lab Teston 11-04-2019 Sodium [Moles/Vol] Accepted [place], [place] Comment on above: Specimen available & acceptable for analysis. Test Performed by [facility], [address] [place] [id number] [place] [address] Basic Metabolic Panelon Anion gap [Moles/Vol] 8 mmol/L [place], [place] Calcium [Mass/Vol] 9.1 mg/dL 8.4 - 10. 4 mg/dL [place] Chloride [Moles/Vol] 96 mmol/L Low 98 - 10 7 mmol/L [place] CO2 [Moles/Vol] 32 mmol/L High 22 - 30 mmol/L [place] Creatinine [Mass/Vol] 0.6 mg/dL 0.52 - 1.25 mg/dL [place] EGFR IF NonAfrican [place]uvian >90.0 >60 mL/min [place] Comment on above: KDIGO guidelines pro [...] MDRD (S/P/Bld) [Vol rate/Area] mL/min/{1.73_m2} >60 mL/min [place] Glucose [Mass/Vol] 133 mg/dL High 70 - 100 mg/dL [place] Potassium [Moles/Vol] 3.4 mmol/L Low 3.5 - 5.1 mmol/L [place] Sodium [Moles/Vol] 137 mmol/L 135 - 145 mmol/L [place] Urea nitrogen [Mass/Vol] 22 mg/dL High 7 - 20 mg/d L [place] Body Fluid Cell Count with D ifferentialon 11-04-2019 Nucl Cell, Fluid [address] {cells}/uL [place] Sodium [Moles/Vol] SYNOVIAL [place] Test Performed by [facility], [address] [place] [address] [place] Body Fluid Crystalon 020 Crystals LM Nom (Urine sed) Negative [place] Sodium [Moles/Vol] Synovial [place] Test Performed by [facility], [address] [place] [address] [place], [place] C-Reactive Proteinon 020 CRP [Mass/Vol] 41.4 mg/L High 0 - 6 mg/L [place] Comment on above: . Differential, Body Fluidon 0 11-04-2019 Eosinophils/100 WBC (Bld) 0 % [place] Comment on above: CORRECTED RESULT...P revious above value was 6, verified on 11/04/19 at 16:51 by [email or web address] . Lymphocytes/100 WBC (Bld) 1 % [place] Comment on above: CORRECTED RESULT...P revious above value was 4, verified on 11/04/19 at 16:51 by [email or web address] . Macrophage count 3 % [place] Comment on above: CORRECTED RESULT...P revious above value was 2, verified on 11/04/19 at 16:51 by [email or web address] . Neutrophils/100 WBC (Bld) 96 % [place] Comment on above: CORRECTED RESULT...P revious above value was 87, verified on 11/04/19 at 16:51 by [email or web address] . Other Cells, Fluid 0 % [place], [place] Comment on above: all other cells are synovial lining cells CORRECTED RESULT...Previous above value was 1, verified on 11/04/19 at 16:52 by [email or web address] . Sodium [Moles/Vol] 100 mmol/L [place] Test Performed by [facility], [address] [place] [address] [place] GRAM STAINon 11-04-2019 INR Coag (Bld) [Relative time] Many polymorphonuclear cells/lpf. No organisms seen. [place] Test Performed by [address] [address] Specimen Source Comment:Leg [place] Hemogram (CBC) w/Auto Diffon 11-04-2019 Absolute Baso # 0.0 10*3/uL 0 - 0.2 10*3/uL [place] Absolute Neut # 5.8 10*3/uL 1.8 - 7 10*3/uL [place] Basophils/100 WBC (Bld) 0.4 % 0 - 2 % [place] Eosinophils (Bld) [#/Vol] 0.2 10*3/uL 0 - 0.5 10*3/uL [place] Eosinophils/100 WBC (Bld) 2.8 % 1 - 6 % [place] Erythrocyte distribution width (RBC) [Ratio] 15.6 % High 11.5 - 14.5 % [place] Granulocytes/100 WBC (Bld) 71.8 % 40 - 80 % [place] Hematocrit (Bld) [Volume fraction] 33.7 % Low 35 - 47 % [place] Hemoglobin (Bld) [Mass/Vol] 11.4 g/dL Low 11.7 - 16 g/dL [place] Interpretation and review of laboratory results Abnormal [place] Lymphocytes (Bld) [#/Vol] 1.3 10*3/uL 1 - 4.3 10*3/uL [place] Lymphocytes/100 WBC (Bld) 16.4 % Low 20 - 40 % [place] MCH (RBC) [Entitic mass] 31.9 pg 26 - 34 pg [place] MCHC (RBC) [Mass/Vol] 33.7 % 32 - 36 % [place] MCV (RBC) [Entitic vol] 94.5 fL 79 - 98 fL [place] Monocytes (Bld) [#/Vol] 0.7 10*3/uL 0 - 0.8 10*3/uL [place] Monocytes/100 WBC (Bld) 8.6 % 2 - 10 % [place] Platelet mean volume (Bld) [Entitic vol] 7.8 fL 7.4 - 10.4 fL [place] Platelets (Bld) [#/Vol] 440 10*3/uL 140 - 440 10*3/uL [place] RBC (Bld) [#/Vol] 3.57 10*6/uL Low 3.8 - 5.2 10*6/uL [place] WBC (Bld) [#/Vol] 8.1 10*3/uL 3.6 - 10.7 10*3/uL [place] Test Performed by [facility], [address] [place] [address] Metabolic Panelon 11-04-2019 Sodium [Moles/Vol] Negative [place] Otheron 11-04-2019 Interpretation and review of laboratory results Abnormal [place] Test Performed by [facility], [address] [place] [address] Protime-INRon 11-04-2019 INR Coag (PPP) [Relative time] 1.0 {INR} [place] Comment on above: Recommended Anticoag ulant [...] [Time] 11.1 s 9 - 12 s [place] Comment on above: . Test Performed by [facility], [address] [place] [address] Sedimentation Rateon 020 Sed Rate 96 mm/h High 0 - 20 mm/h [place] TYPE AND SCREENon 11-04-2019 Sodium [Moles/Vol] AB [place] Test Performed by [facility], [address] [place] [address] XR CHEST PORTABLEon 11-04-19 20 Rodolfo, [facility] Incoming Radiology Results From [facility] - 11/04/2019 7:34 PM EDT Patient Name: CHARLIE NGUYEN ---Diagnostic Radiology--- Exam Date/Time 11/04/2019 19:28:19 EDT Exam CR Chest Portable Ordering Physician DO BOWLES DORSEY R Accession Number [id number] CPT4 Codes 82887 () Reason For Exam pre-op Report Portable [...] BRIAN Transcribed Date and Time: 11/04/2019 7:32 [place] Patient Name: CHARLIE NGUYEN ---Diagnostic Radiology--- Exam Date/Time 11/04/2019 19:28:19 EDT Exam CR Chest Portable Ordering Physician DO BOWLES DORSEY R Accession Number [id number] CPT4 Codes 59648 () Reason For Exam pre-op Report Portable [...] BRIAN Transcribed Date and Time: 11/04/2019 7:32 [place] XR KNEE RIGHT (3 VIEWS)on [facility], [facility] Incoming Radiology Results From [facility] - 11/04/2019 2:47 PM EDT Patient Name: CHARLIE NGUYEN ---Diagnostic Radiology--- Exam Date/Time 11/04/2019 14:47:22 EDT Exam CR Knee 3 Views Right Ordering Physician JESSYDAVID SWAIN Accession Number [id number] CPT4 Codes 24989 () Reason For Exam right knee pain [...] No acute process. Report Dictated on Workstation: [id number] --- Final --- Dictated: 11/04/2019 2:14 pm Dictating Physician: MD CRANDALL RISA Signed Date and Time: 11/04/2019 2:15 pm Signed by: MD CRANDALL RISA Transcribed Date and Time: 11/04/2019 2:14 [place], [place] Patient Name: CHARLIE NGUYEN ---Diagnostic Radiology--- Exam Date/Time 11/04/2019 14:47:22 EDT Exam CR Knee 3 Views Right Ordering Physician JESSYDAVID Accession Number [id number] CPT4 Codes 47178 () Reason For Exam right knee pain [...] RISA Transcribed Date and Time: 11/04/2019 2:14 [place], [place] Basic Metabolic Panelon 09-30 Anion gap [Moles/Vol] 10 mmol/L [place] Calcium [Mass/Vol] 9.0 mg/dL 8.4 - 10. 4 mg/dL [place] Chloride [Moles/Vol] 93 mmol/L Low 98 - 10 7 mmol/L [place] CO2 [Moles/Vol] 36 mmol/L High 22 - 30 mmol/L [place] Creatinine [Mass/Vol] 0.63 mg/dL 0.52 - 1.25 mg/dL [place] EGFR IF NonAfrican [place]uvian >90.0 >60 mL/min [place] Comment on above: KDIGO guidelines pro [...] MDRD (S/P/Bld) [Vol rate/Area] mL/min/{1.73_m2} >60 mL/min [place] Glucose [Mass/Vol] 115 mg/dL High 70 - 100 mg/dL [place] Potassium [Moles/Vol] 3.7 mmol/L 3.5 - 5.1 mmol/L [place] Sodium [Moles/Vol] 139 mmol/L 135 - 145 mmol/L [place] Urea nitrogen [Mass/Vol] 30 mg/dL High 7 - 20 mg/d L [place] CBC Auto Differentialon 05-2 -2019 Absolute Baso # 0.1 10*3/uL 0 - 0.2 10*3/uL [place] Absolute Neut # 5.8 10*3/uL 1.8 - 7 10*3/uL [place] Basophils/100 WBC (Bld) 0.9 % 0 - 2 % [place] Eosinophils (Bld) [#/Vol] 0.3 10*3/uL 0 - 0.5 10*3/uL [place] Eosinophils/100 WBC (Bld) 3.4 % 1 - 6 % [place] Erythrocyte distribution width (RBC) [Ratio] 15.5 % High 11.5 - 14.5 % [place] Granulocytes/100 WBC (Bld) 67.2 % 40 - 80 % [place] Hematocrit (Bld) [Volume fraction] 38.5 % 35 - 47 % [place] Hemoglobin (Bld) [Mass/Vol] 12.3 g/dL 11.7 - 16 g/dL [place] Interpretation and review of laboratory results Abnormal [place] Lymphocytes (Bld) [#/Vol] 1.5 10*3/uL 1 - 4.3 10*3/uL [place] Lymphocytes/100 WBC (Bld) 17.8 % Low 20 - 40 % [place] MCH (RBC) [Entitic mass] 30.7 pg 26 - 34 pg [place] MCHC (RBC) [Mass/Vol] 32.0 % 32 - 36 % [place] MCV (RBC) [Entitic vol] 96.0 fL 79 - 98 fL [place] Monocytes (Bld) [#/Vol] 0.9 10*3/uL High 0 - 0.8 10*3/uL [place] Monocytes/100 WBC (Bld) 10.7 % High 2 - 10 % [place] Platelet mean volume (Bld) [Entitic vol] 7.8 fL 7.4 - 10.4 fL [place] Platelets (Bld) [#/Vol] 333 10*3/uL 140 - 440 10*3/uL [place] RBC (Bld) [#/Vol] 4.01 10*6/uL 3.8 - 5.2 10*6/uL [place] WBC (Bld) [#/Vol] 8.7 10*3/uL 3.6 - 10.7 10*3/uL [place] Test Performed by [facility], [address] [place], [place] [address] [place], [place] Calcium, Ionizedon 0 Interpretation and review of laboratory results Abnormal [place] Ionized Ca 4.30 mg/dL 4.3 - 5.2 mg/dL [place] pH (Bld) 7.47 [pH] [place] Test Performed by [facility], [address] [place], [place] [id number] [place] [address] Hepatic Function Panelon Albumin [Mass/Vol] 3.8 g/dL 3.5 - 5 g/dL [place] ALP [Catalytic activity/Vol] 107 U/L 38 - 126 U/L [place] ALT [Catalytic activity/Vol] 67 U/L High 0 - 34 U/L [place] Comment on above: The ALT test is perf ormed by an updated assay method. Please note that the reference intervals have been changed and are now sex specific. AST [Catalytic activity/Vol] 51 U/L High 15 - 46 U/L [place] Bilirubin Ql (U) 0.6 mg/dL 0.2 - 1.3 mg/dL [place] Bilirubin.direct [Mass/Vol] 0.0 mg/dL 0 - 0.3 mg/dL [place] Protein [Mass/Vol] 8.2 g/dL 6.3 - 8.2 g/dL [place] MAGNESIUMon 10-25-2019 Magnesium [Mass/Vol] 1.8 mg/dL 1.6 - 2 .3 mg/dL [place] Otheron 10-25-2019 Interpretation and review of laboratory results Abnormal [place] Test Performed by [facility], [address], [place], [place] [address] [place] Phosphoruson 10-25-2019 Phosphate [Mass/Vol] 5.3 mg/dL High 2.5 - 4 .5 mg/dL [place] Basic Metabolic Panelon 09-30 Anion gap [Moles/Vol] 9 mmol/L [place] Calcium [Mass/Vol] 8.5 mg/dL 8.4 - 10. 4 mg/dL [place] Chloride [Moles/Vol] 95 mmol/L Low 98 - 10 7 mmol/L [place] CO2 [Moles/Vol] 36 mmol/L High 22 - 30 mmol/L [place] Creatinine [Mass/Vol] 0.48 mg/dL Low 0.52 - 1.25 mg/dL [place] EGFR IF NonAfrican [place]uvian >90.0 >60 mL/min [place] Comment on above: KDIGO guidelines pro [...] MDRD (S/P/Bld) [Vol rate/Area] mL/min/{1.73_m2} >60 mL/min [place] Glucose [Mass/Vol] 113 mg/dL High 70 - 100 mg/dL [place] Potassium [Moles/Vol] 3.6 mmol/L 3.5 - 5.1 mmol/L [place] Sodium [Moles/Vol] 139 mmol/L 135 - 145 mmol/L [place] Urea nitrogen [Mass/Vol] 26 mg/dL High 7 - 20 mg/d L [place], [place] CBC Auto Differentialon 05-2 Absolute Baso # 0.1 10*3/uL 0 - 0.2 10*3/uL [place] Absolute Neut # 6.0 10*3/uL 1.8 - 7 10*3/uL [place] Basophils/100 WBC (Bld) 1.3 % 0 - 2 % [place] Eosinophils (Bld) [#/Vol] 0.3 10*3/uL 0 - 0.5 10*3/uL [place] Eosinophils/100 WBC (Bld) 3.3 % 1 - 6 % [place] Erythrocyte distribution width (RBC) [Ratio] 15.0 % High 11.5 - 14.5 % [place] Granulocytes/100 WBC (Bld) 68.0 % 40 - 80 % [place] Hematocrit (Bld) [Volume fraction] 36.4 % 35 - 47 % [place] Hemoglobin (Bld) [Mass/Vol] 11.9 g/dL 11.7 - 16 g/dL [place] Interpretation and review of laboratory results Abnormal [place] Lymphocytes (Bld) [#/Vol] 1.6 10*3/uL 1 - 4.3 10*3/uL [place] Lymphocytes/100 WBC (Bld) 17.8 % Low 20 - 40 % [place] MCH (RBC) [Entitic mass] 31.4 pg 26 - 34 pg [place] MCHC (RBC) [Mass/Vol] 32.7 % 32 - 36 % [place] MCV (RBC) [Entitic vol] 96.0 fL 79 - 98 fL [place], [place] Monocytes (Bld) [#/Vol] 0.8 10*3/uL 0 - 0.8 10*3/uL [place] Monocytes/100 WBC (Bld) 9.6 % 2 - 10 % [place] Platelet mean volume (Bld) [Entitic vol] 7.6 fL 7.4 - 10.4 fL [place] Platelets (Bld) [#/Vol] 322 10*3/uL 140 - 440 10*3/uL [place] RBC (Bld) [#/Vol] 3.79 10*6/uL Low 3.8 - 5.2 10*6/uL [place] WBC (Bld) [#/Vol] 8.8 10*3/uL 3.6 - 10.7 10*3/uL [place] Test Performed by [facility], [address] [place], [place] [address] [place] Calcium, Ionizedon 0 Interpretation and review of laboratory results Abnormal [place] Ionized Ca 4.30 mg/dL 4.3 - 5.2 mg/dL [place] pH (Bld) 7.47 [pH] [place] Test Performed by [facility], [address] [place], [place] [address] [place] Hepatic Function Panelon Albumin [Mass/Vol] 3.6 g/dL 3.5 - 5 g/dL [place] ALP [Catalytic activity/Vol] 102 U/L 38 - 126 U/L [place] ALT [Catalytic activity/Vol] 69 U/L High 0 - 34 U/L [place] Comment on above: The ALT test is perf ormed by an updated assay method. Please note that the reference intervals have been changed and are now sex specific. AST [Catalytic activity/Vol] 41 U/L 15 - 46 U/L [place] Bilirubin Ql (U) 0.6 mg/dL 0.2 - 1.3 mg/dL [place] Bilirubin.direct [Mass/Vol] 0.0 mg/dL 0 - 0.3 mg/dL [place] Protein [Mass/Vol] 7.7 g/dL 6.3 - 8.2 g/dL [place] MAGNESIUMon 10-24-2019 Magnesium [Mass/Vol] 2.0 mg/dL 1.6 - 2 .3 mg/dL [place] Otheron 10-24-2019 Interpretation and review of laboratory results Abnormal [place] Test Performed by [facility], [address], [place], [place] [address] [place] Phosphoruson 10-24-2019 Phosphate [Mass/Vol] 4.5 mg/dL 2.5 - 4 .5 mg/dL [place] XR CHEST PORTABLEon 10-24-19 20 [place], [facility] Incoming Radiology Results From [facility] - 10/24/2019 9:09 AM EDT Patient Name: CHARLIE NGUYEN ---Diagnostic Radiology--- Exam Date/Time 10/24/2019 08:53:24 EDT Exam CR Chest Portable Ordering Physician BENJAMIN SOSA JUDITH A. Accession Number [id number] CPT4 Codes 17793 () Reason For Exam respiratory failure Report [...] I Transcribed Date and Time: 10/24/2019 9:08 [place] Patient Name: CHARLIE NGUYEN ---Diagnostic Radiology--- Exam Date/Time 10/24/2019 08:53:24 EDT Exam CR Chest Portable Ordering Physician BENJAMIN SOSA JUDITH A. Accession Number [id number] CPT4 Codes 79426 () Reason For Exam respiratory failure Report [...] I Transcribed Date and Time: 10/24/2019 9:08 [place], [place] Basic Metabolic Panelon 05- Anion gap [Moles/Vol] 12 mmol/L [place] Calcium [Mass/Vol] 8.5 mg/dL 8.4 - 10. 4 mg/dL [place] Chloride [Moles/Vol] 97 mmol/L Low 98 - 10 7 mmol/L [place] CO2 [Moles/Vol] 35 mmol/L High 22 - 30 mmol/L [place] Creatinine [Mass/Vol] 0.53 mg/dL 0.52 - 1.25 mg/dL [place] EGFR IF NonAfrican [place]uvian >90.0 >60 mL/min [place] Comment on above: KDIGO guidelines pro [...] MDRD (S/P/Bld) [Vol rate/Area] mL/min/{1.73_m2} >60 mL/min [place] Glucose [Mass/Vol] 104 mg/dL High 70 - 100 mg/dL [place] Potassium [Moles/Vol] 3.5 mmol/L 3.5 - 5.1 mmol/L [place] Sodium [Moles/Vol] 144 mmol/L 135 - 145 mmol/L [place] Urea nitrogen [Mass/Vol] 25 mg/dL High 7 - 20 mg/d L [place] CBC Auto Differentialon 05-2 Absolute Baso # 0.1 10*3/uL 0 - 0.2 10*3/uL [place] Absolute Neut # 7.0 10*3/uL 1.8 - 7 10*3/uL [place] Basophils/100 WBC (Bld) 1.0 % 0 - 2 % [place] Eosinophils (Bld) [#/Vol] 0.3 10*3/uL 0 - 0.5 10*3/uL [place] Eosinophils/100 WBC (Bld) 3.2 % 1 - 6 % [place] Erythrocyte distribution width (RBC) [Ratio] 15.1 % High 11.5 - 14.5 % [place] Granulocytes/100 WBC (Bld) 71.8 % 40 - 80 % [place] Hematocrit (Bld) [Volume fraction] 35.4 % 35 - 47 % [place] Hemoglobin (Bld) [Mass/Vol] 11.6 g/dL Low 11.7 - 16 g/dL [place] Interpretation and review of laboratory results Abnormal [place] Lymphocytes (Bld) [#/Vol] 1.5 10*3/uL 1 - 4.3 10*3/uL [place] Lymphocytes/100 WBC (Bld) 15.7 % Low 20 - 40 % [place] MCH (RBC) [Entitic mass] 31.3 pg 26 - 34 pg [place] MCHC (RBC) [Mass/Vol] 32.8 % 32 - 36 % [place] MCV (RBC) [Entitic vol] 95.6 fL 79 - 98 fL [place] Monocytes (Bld) [#/Vol] 0.8 10*3/uL 0 - 0.8 10*3/uL [place] Monocytes/100 WBC (Bld) 8.3 % 2 - 10 % [place] Platelet mean volume (Bld) [Entitic vol] 7.6 fL 7.4 - 10.4 fL [place] Platelets (Bld) [#/Vol] 343 10*3/uL 140 - 440 10*3/uL [place] RBC (Bld) [#/Vol] 3.71 10*6/uL Low 3.8 - 5.2 10*6/uL [place] WBC (Bld) [#/Vol] 9.8 10*3/uL 3.6 - 10.7 10*3/uL [place] Test Performed by [facility], [address] [place], [place] [address] [place], [place] Calcium, Ionizedon 0 Ionized Ca 4.40 mg/dL 4.3 - 5.2 mg/dL [place] pH (Bld) 7.42 [pH] [place] Test Performed by [facility], [address], [place], [place] [address] [place] Hepatic Function Panelon Albumin [Mass/Vol] 3.4 g/dL Low 3.5 - 5 g/dL [place] ALP [Catalytic activity/Vol] 106 U/L 38 - 126 U/L [place] ALT [Catalytic activity/Vol] 84 U/L High 0 - 34 U/L [place] Comment on above: The ALT test is perf ormed by an updated assay method. Please note that the reference intervals have been changed and are now sex specific. AST [Catalytic activity/Vol] 44 U/L 15 - 46 U/L [place] Bilirubin Ql (U) 0.6 mg/dL 0.2 - 1.3 mg/dL [place] Bilirubin.direct [Mass/Vol] 0.0 mg/dL 0 - 0.3 mg/dL [place] Protein [Mass/Vol] 7.6 g/dL 6.3 - 8.2 g/dL [place] MAGNESIUMon 10-23-2019 Magnesium [Mass/Vol] 1.4 mg/dL Low 1.6 - 2 .3 mg/dL [place] Otheron 10-23-2019 Interpretation and review of laboratory results Abnormal [place] Test Performed by [facility], [address], [place], [place] [address] [place], [place] POCT Arterialon 10-23-2019 Base Excess, Arterial 8.0 mmol/L High -3 - 3 mmol/L [place] HCO3, Arterial 32.9 mmol/L High 21 - 25 mmol/L [place] Interpretation and review of laboratory results Abnormal [place] Oxygen saturation in Blood 96.8 % 95 - 100 % [place] pCO2, Arterial 45.2 mm[Hg] High 35 - 45 mm[Hg] [place] pH, Arterial 7.470 High [place] pO2, Arterial 83.8 mm[Hg] 80 - 100 mm[Hg] [place] Sodium [Moles/Vol] 40 mmol/L [place] Comment on above: Performed by [facility]IA ID : [id number] [place], [place] TCO2, Arterial 34.3 mmol/L High 23 - 27 mmol/L [place] Test Performed by [facility], [address], [place] [id number] [place] [address] Base Excess, Arterial cnc Critically abnormal -3 - 3 mmol/L [place] HCO3, Arterial cnc Critically abnormal 21 - 25 mmol/L [place] Interpretation and review of laboratory results Abnormal [place] Oxygen saturation in Blood cnc Critically abnormal 95 - 100 % [place] pCO2, Arterial 44.8 mm[Hg] 35 - 45 mm[Hg] [place] pH, Arterial Failed iQC Critically abnormal [place] pO2, Arterial 80.1 mm[Hg] 80 - 100 mm[Hg] [place] Sodium [Moles/Vol] 40 mmol/L [place] Comment on above: Performed by [facility] ID : [id number] [place], [place] TCO2, Arterial cnc Critically abnormal 23 - 27 mmol/L [place] Test Performed by [facility], [address], [place] [id number] [place] [address] Phosphoruson 10-23-2019 Phosphate [Mass/Vol] 4.3 mg/dL 2.5 - 4 .5 mg/dL [place] XR CHEST PORTABLEon 10-23-19 20 Patient Name: CHARLIE NGUYEN ---Diagnostic Radiology--- Exam Date/Time 10/23/2019 06:36:40 EDT Exam CR Chest Portable Ordering Physician BENJAMIN SOSA JUDITH A. Accession Number [id number] CPT4 Codes 70885 () Reason For Exam respiratory failure Report [...] I Transcribed Date and Time: 10/23/2019 7:43 [place], [facility] Incoming Radiology Results From [facility] - 10/23/2019 7:44 AM EDT Patient Name: CHARLIE NGUYEN ---Diagnostic Radiology--- Exam Date/Time 10/23/2019 06:36:40 EDT Exam CR Chest Portable Ordering Physician BENJAMIN SOSA JUDITH A. Accession Number [id number] CPT4 Codes 57112 () Reason For Exam respiratory failure Report [...] I Transcribed Date and Time: 10/23/2019 7:43 [place] Basic Metabolic Panelon 09-30 Anion gap [Moles/Vol] 8 mmol/L [place] Calcium [Mass/Vol] 8.2 mg/dL Low 8.4 - 10. 4 mg/dL [place] Chloride [Moles/Vol] 104 mmol/L 98 - 10 7 mmol/L [place] CO2 [Moles/Vol] 30 mmol/L 22 - 30 mmol/L [place] Creatinine [Mass/Vol] 0.39 mg/dL Low 0.52 - 1.25 mg/dL [place] EGFR IF NonAfrican [place]uvian >90.0 >60 mL/min [place] Comment on above: KDIGO guidelines pro [...] MDRD (S/P/Bld) [Vol rate/Area] mL/min/{1.73_m2} >60 mL/min [place] Glucose [Mass/Vol] 96 mg/dL 70 - 100 mg/dL [place] Potassium [Moles/Vol] 3.2 mmol/L Low 3.5 - 5.1 mmol/L [place] Sodium [Moles/Vol] 142 mmol/L 135 - 145 mmol/L [place] Urea nitrogen [Mass/Vol] 15 mg/dL 7 - 20 mg/d L [place] CBC Auto Differentialon 05-2 Absolute Baso # 0.1 10*3/uL 0 - 0.2 10*3/uL [place] Absolute Neut # 6.9 10*3/uL 1.8 - 7 10*3/uL [place] Basophils/100 WBC (Bld) 0.7 % 0 - 2 % [place] Eosinophils (Bld) [#/Vol] 0.3 10*3/uL 0 - 0.5 10*3/uL [place] Eosinophils/100 WBC (Bld) 3.7 % 1 - 6 % [place] Erythrocyte distribution width (RBC) [Ratio] 15.2 % High 11.5 - 14.5 % [place] Granulocytes/100 WBC (Bld) 74.2 % 40 - 80 % [place] Hematocrit (Bld) [Volume fraction] 33.4 % Low 35 - 47 % [place] Hemoglobin (Bld) [Mass/Vol] 10.9 g/dL Low 11.7 - 16 g/dL [place] Interpretation and review of laboratory results Abnormal [place] Lymphocytes (Bld) [#/Vol] 1.4 10*3/uL 1 - 4.3 10*3/uL [place] Lymphocytes/100 WBC (Bld) 14.9 % Low 20 - 40 % [place] MCH (RBC) [Entitic mass] 31.7 pg 26 - 34 pg [place] MCHC (RBC) [Mass/Vol] 32.7 % 32 - 36 % [place] MCV (RBC) [Entitic vol] 96.8 fL 79 - 98 fL [place] Monocytes (Bld) [#/Vol] 0.6 10*3/uL 0 - 0.8 10*3/uL [place] Monocytes/100 WBC (Bld) 6.5 % 2 - 10 % [place] Platelet mean volume (Bld) [Entitic vol] 7.5 fL 7.4 - 10.4 fL [place] Platelets (Bld) [#/Vol] 341 10*3/uL 140 - 440 10*3/uL [place] RBC (Bld) [#/Vol] 3.44 10*6/uL Low 3.8 - 5.2 10*6/uL [place] WBC (Bld) [#/Vol] 9.2 10*3/uL 3.6 - 10.7 10*3/uL [place] Test Performed by [facility], [address] [place], [place], [place] [id number] [place] [address] Calcium, Ionizedon 0 Ionized Ca 4.40 mg/dL 4.3 - 5.2 mg/dL [place] pH (Bld) 7.36 [pH] [place] Test Performed by [facility], [address] [place], [place] [address] [place] Hepatic Function Panelon Albumin [Mass/Vol] 3.1 g/dL Low 3.5 - 5 g/dL [place] ALP [Catalytic activity/Vol] 97 U/L 38 - 126 U/L [place] ALT [Catalytic activity/Vol] 100 U/L High 0 - 34 U/L [place] Comment on above: The ALT test is perf ormed by an updated assay method. Please note that the reference intervals have been changed and are now sex specific. AST [Catalytic activity/Vol] 56 U/L High 15 - 46 U/L [place] Bilirubin Ql (U) 0.5 mg/dL 0.2 - 1.3 mg/dL [place] Bilirubin.direct [Mass/Vol] 0.0 mg/dL 0 - 0.3 mg/dL [place] Protein [Mass/Vol] 7.0 g/dL 6.3 - 8.2 g/dL [place] MAGNESIUMon 10-22-2019 Magnesium [Mass/Vol] 1.6 mg/dL 1.6 - 2 .3 mg/dL [place] Otheron 10-22-2019 Interpretation and review of laboratory results Abnormal [place] Test Performed by [facility], [address] [place], [place] [address] [place] POCT Arterialon 10-22-2019 Base Excess, Arterial 4.2 mmol/L High -3 - 3 mmol/L [place] HCO3, Arterial 29.9 mmol/L High 21 - 25 mmol/L [place] Interpretation and review of laboratory results Abnormal [place] Oxygen saturation in Blood 96.4 % 95 - 100 % [place] pCO2, Arterial 48.1 mm[Hg] High 35 - 45 mm[Hg] [place] pH, Arterial 7.401 [place] pO2, Arterial 86.4 mm[Hg] 80 - 100 mm[Hg] [place] TCO2, Arterial 31.3 mmol/L High 23 - 27 mmol/L [place] Comment on above: Performed by [facility]IA ID : [id number] [place], [place] Test Performed by [facility], [address], [place], [place] [address] [place] Phosphoruson 10-22-2019 Phosphate [Mass/Vol] 3.6 mg/dL 2.5 - 4 .5 mg/dL [place] XR CHEST PORTABLEon 10-22-19 20 [place], [facility] Incoming Radiology Results From [facility] - 10/22/2019 6:46 AM EDT Patient Name: CHARLIE NGUYEN ---Diagnostic Radiology--- Exam Date/Time 10/22/2019 06:14:22 EDT Exam CR Chest Portable Ordering Physician BENJAMIN SOSA JUDITH A. Accession Number [id number] CPT4 Codes 90853 () Reason For Exam respiratory failure Report [...] ALFRED Transcribed Date and Time: 10/22/2019 6:46 [place] Patient Name: CHARLIE NGUYEN ---Diagnostic Radiology--- Exam Date/Time 10/22/2019 06:14:22 EDT Exam CR Chest Portable Ordering Physician BENJAMIN SOSA JUDITH A. Accession Number [id number] CPT4 Codes 80552 () Reason For Exam respiratory failure Report [...] Chronic interstitial changes. Report Dictated on Workstation: [id number] --- Final --- Dictating Physician: DO DICKEY ALFRED Signed Date and Time: 10/22/2019 6:45 am Signed by: DO DICKEY ALFRED Transcribed Date and Time: 10/22/2019 6:46 [place] Basic Metabolic Panelon 09-30 Anion gap [Moles/Vol] 11 mmol/L [place] Calcium [Mass/Vol] 8.3 mg/dL Low 8.4 - 10. 4 mg/dL [place] Chloride [Moles/Vol] 107 mmol/L 98 - 10 7 mmol/L [place] CO2 [Moles/Vol] 25 mmol/L 22 - 30 mmol/L [place] Creatinine [Mass/Vol] 0.36 mg/dL Low 0.52 - 1.25 mg/dL [place] EGFR IF NonAfrican [place]uvian >90.0 >60 mL/min [place] Comment on above: KDIGO guidelines pro [...] MDRD (S/P/Bld) [Vol rate/Area] mL/min/{1.73_m2} >60 mL/min [place] Glucose [Mass/Vol] 98 mg/dL 70 - 100 mg/dL [place] Potassium [Moles/Vol] 2.8 mmol/L Low 3.5 - 5.1 mmol/L [place] Sodium [Moles/Vol] 143 mmol/L 135 - 145 mmol/L [place] Urea nitrogen [Mass/Vol] 17 mg/dL 7 - 20 mg/d L [place] CBC Auto Differentialon 05-2 Absolute Baso # 0.1 10*3/uL 0 - 0.2 10*3/uL [place] Absolute Neut # 8.1 10*3/uL High 1.8 - 7 10*3/uL [place] Basophils/100 WBC (Bld) 0.8 % 0 - 2 % [place] Eosinophils (Bld) [#/Vol] 0.3 10*3/uL 0 - 0.5 10*3/uL [place] Eosinophils/100 WBC (Bld) 2.9 % 1 - 6 % [place] Erythrocyte distribution width (RBC) [Ratio] 15.2 % High 11.5 - 14.5 % [place] Granulocytes/100 WBC (Bld) 76.9 % 40 - 80 % [place] Hematocrit (Bld) [Volume fraction] 33.5 % Low 35 - 47 % [place] Hemoglobin (Bld) [Mass/Vol] 11.1 g/dL Low 11.7 - 16 g/dL [place] Interpretation and review of laboratory results Abnormal [place] Lymphocytes (Bld) [#/Vol] 1.3 10*3/uL 1 - 4.3 10*3/uL [place] Lymphocytes/100 WBC (Bld) 11.9 % Low 20 - 40 % [place] MCH (RBC) [Entitic mass] 32.0 pg 26 - 34 pg [place] MCHC (RBC) [Mass/Vol] 33.1 % 32 - 36 % [place] MCV (RBC) [Entitic vol] 96.5 fL 79 - 98 fL [place] Monocytes (Bld) [#/Vol] 0.8 10*3/uL 0 - 0.8 10*3/uL [place] Monocytes/100 WBC (Bld) 7.5 % 2 - 10 % [place] Platelet mean volume (Bld) [Entitic vol] 7.8 fL 7.4 - 10.4 fL [place] Platelets (Bld) [#/Vol] 366 10*3/uL 140 - 440 10*3/uL [place] RBC (Bld) [#/Vol] 3.47 10*6/uL Low 3.8 - 5.2 10*6/uL [place] WBC (Bld) [#/Vol] 10.6 10*3/uL 3.6 - 10.7 10*3/uL [place] Test Performed by [facility], [address] [place] [id number] [place] [address] Hepatic Function Panelon Albumin [Mass/Vol] 3.4 g/dL Low 3.5 - 5 g/dL [place] ALP [Catalytic activity/Vol] 107 U/L 38 - 126 U/L [place] ALT [Catalytic activity/Vol] 126 U/L High 0 - 34 U/L [place] Comment on above: The ALT test is perf ormed by an updated assay method. Please note that the reference intervals have been changed and are now sex specific. AST [Catalytic activity/Vol] 72 U/L High 15 - 46 U/L [place] Bilirubin Ql (U) 0.7 mg/dL 0.2 - 1.3 mg/dL [place] Bilirubin.direct [Mass/Vol] 0.0 mg/dL 0 - 0.3 mg/dL [place] Protein [Mass/Vol] 7.6 g/dL 6.3 - 8.2 g/dL [place] MRI BRAIN W WO CONTRASTon Patient Name: CHARLIE NGUYEN ---MRI--- Exam Date/Time 10/21/2019 11:17:35 EDT Exam MRI Brain w/ + w/o Contrast Ordering Physician TAMARA GILL Accession Number [id number] CPT4 Codes 34453 () Reason For Exam new onset seizures [...] JEFFREY Transcribed Date and Time: 10/21/2019 2:08 [facility]- [place], [place], [facility] Incoming Radiology Results From [facility] - 10/21/2019 2:09 PM EDT Patient Name: CHARLIE NGUYEN ---MRI--- Exam Date/Time 10/21/2019 11:17:35 EDT Exam MRI Brain w/ + w/o Contrast Ordering Physician TAMARA GILL Accession Number [id number] CPT4 Codes 61844 () Reason For Exam new onset seizures [...] JEFFREY Transcribed Date and Time: 10/21/2019 2:08 [facility], [place] Otheron 10-21-2019 Interpretation and review of laboratory results Abnormal [place], [place] Test Performed by [facility] [id number] [place], [place], [place] [address] [place], [place] POCT Arterialon 10-21-2019 Base Excess, Arterial 2.8 mmol/L -3 - 3 mmol/L [facility], [place] HCO3, Arterial 27.4 mmol/L High 21 - 25 mmol/L [place], [place] Interpretation and review of laboratory results Abnormal [place] Oxygen saturation in Blood 93.7 % Low 95 - 100 % [place] pCO2, Arterial 41.0 mm[Hg] 35 - 45 mm[Hg] [place] pH, Arterial 7.433 [place] pO2, Arterial 67.7 mm[Hg] Low 80 - 100 mm[Hg] [place] Sodium [Moles/Vol] 40 mmol/L [place] Comment on above: Performed by [facility] ID : [id number] [place], [place] TCO2, Arterial 28.7 mmol/L High 23 - 27 mmol/L [place] Test Performed by [facility] [place] [id number] [place], [place], [place] [address] [place] XA SPECIAL ANGIOGRAPHY PROCE [facility] 10-21-2019 [place], [facility] Incoming Radiology Results From [facility] - 10/21/2019 3:26 PM EDT Patient Name: CHARLIE NGUYEN ---Special Procedures--- Exam Date/Time 10/21/2019 15:06:31 EDT Exam XA Special Angiography Procedure Ordering Physician DES ROMERO Accession Number [id number] Reason For Exam PICC limited access Report [...] KEVIN Transcribed Date and Time: 10/21/2019 3:26 [place], [place] Patient Name: CHARLIE NGUYEN ---Special Procedures--- Exam Date/Time 10/21/2019 15:06:31 EDT Exam XA Special Angiography Procedure Ordering Physician DES ROMERO Accession Number [id number] Reason For Exam PICC limited access Report [...] KEVIN Transcribed Date and Time: 10/21/2019 3:26 [place], [place] AMMONIAon 10-20-2019 Ammonia (P) [Mass/Vol] ug/dL 9 - 3 0 umol/L [place] Test Performed by [facility], [address] [place], [place] [address] [place], [place] CBC Auto Differentialon 09-30 Absolute Baso # 0.1 10*3/uL 0 - 0.2 10*3/uL [place] Absolute Neut # 10.2 10*3/uL High 1.8 - 7 10*3/uL [place] Basophils/100 WBC (Bld) 0.6 % 0 - 2 % [place] Eosinophils (Bld) [#/Vol] 0.1 10*3/uL 0 - 0.5 10*3/uL [place] Eosinophils/100 WBC (Bld) 1.1 % 1 - 6 % [place] Erythrocyte distribution width (RBC) [Ratio] 15.2 % High 11.5 - 14.5 % [place] Granulocytes/100 WBC (Bld) 85.0 % High 40 - 80 % [place] Hematocrit (Bld) [Volume fraction] 35.9 % 35 - 47 % [place] Hemoglobin (Bld) [Mass/Vol] 11.6 g/dL Low 11.7 - 16 g/dL [place] Interpretation and review of laboratory results Abnormal [place] Lymphocytes (Bld) [#/Vol] 1.0 10*3/uL 1 - 4.3 10*3/uL [place] Lymphocytes/100 WBC (Bld) 7.9 % Low 20 - 40 % [place] MCH (RBC) [Entitic mass] 30.8 pg 26 - 34 pg [place] MCHC (RBC) [Mass/Vol] 32.2 % 32 - 36 % [place] MCV (RBC) [Entitic vol] 95.8 fL 79 - 98 fL [place] Monocytes (Bld) [#/Vol] 0.7 10*3/uL 0 - 0.8 10*3/uL [place] Monocytes/100 WBC (Bld) 5.4 % 2 - 10 % [place] Platelet mean volume (Bld) [Entitic vol] 7.7 fL 7.4 - 10.4 fL [place] Platelets (Bld) [#/Vol] 411 10*3/uL 140 - 440 10*3/uL [place] RBC (Bld) [#/Vol] 3.75 10*6/uL Low 3.8 - 5.2 10*6/uL [place] WBC (Bld) [#/Vol] 12.0 10*3/uL High 3.6 - 10.7 10*3/uL [place] Test Performed by [facility] [employer] [address], [place], [place] [address] [facility]2019 SARS-CoV-2 Not Detected Expected Result: Not Detected _ Real-time, RT-PCR performed on the [employer] System by the [facility]. Negative results do not preclude SARS-CoV-2 infection and should not be used as the sole basis for treatment or other patient management decisions. This assay was developed by [employer] and distributed under an Emergency Use Authorization (EUA) granted by the FDA for the qualitative detection of SARS-CoV-2 nucleic acid. [facility] Test Performed by [facility] [address] [place] [address] Specimen Source Comment:Nasopharyngea l Swab [facility] Chest W WO Contraston Patient Name: CHARLIE NGUYEN ---CT--- Exam Date/Time 10/20/2019 16:55:55 EDT Exam CTA Chest w/ + w/o Contrast Ordering Physician DES ROMERO Accession Number [id number] CPT4 Codes 28776 (), Q9967 (CT ISOVUE 370MG/[id number]& ML&1) Reason For Exam Recurrent hypoxia Report Reasons for examination: Recurrent hypoxia, drug overdose. CT scan of the chest were performed with bolus contrast and high resolution scans for CT pulmonary angiographic study, with images post-processed by myself on [employer] workstation, with 3D - volume rendered CT [...] WILLIAM Transcribed Date and Time: 10/20/2019 6:04 [place], [place], [facility] Incoming Radiology Results From [facility] - 10/20/2019 6:04 PM EDT Patient Name: CHARLIE NGUYEN ---CT--- Exam Date/Time 10/20/2019 16:55:55 EDT Exam CTA Chest w/ + w/o Contrast Ordering Physician DES ROMERO Accession Number [id number] CPT4 Codes 28451 (), Q9967 (CT ISOVUE 370MG/[id number] ML&1) Reason For Exam Recurrent hypoxia Report Reasons for examination: Recurrent hypoxia, drug overdose. CT scan of the chest were performed with bolus contrast and high resolution scans for CT pulmonary angiographic study, with images post-processed by myself on [employer] workstation, with 3D - volume rendered CT [...] WILLIAM Transcribed Date and Time: 10/20/2019 6:04 [place], [place] Comprehensive Metabolic Pane rafiq 10-20-2019 Albumin [Mass/Vol] 3.4 g/dL Low 3.5 - 5 g/dL [place] ALP [Catalytic activity/Vol] 122 U/L 38 - 126 U/L [place] ALT [Catalytic activity/Vol] 134 U/L High 0 - 34 U/L [place] Comment on above: The ALT test is perf ormed by an updated assay method. Please note that the reference intervals have been changed and are now sex specific. Anion gap [Moles/Vol] 11 mmol/L [place], [place] AST [Catalytic activity/Vol] 79 U/L High 15 - 46 U/L [place] Bilirubin Ql (U) 0.5 mg/dL 0.2 - 1.3 mg/dL [place] Calcium [Mass/Vol] 8.4 mg/dL 8.4 - 10. 4 mg/dL [place] Chloride [Moles/Vol] 106 mmol/L 98 - 10 7 mmol/L [place] CO2 [Moles/Vol] 26 mmol/L 22 - 30 mmol/L [place] Creatinine [Mass/Vol] 0.45 mg/dL Low 0.52 - 1.25 mg/dL [place] EGFR IF NonAfrican Peruvian >90.0 >60 mL/min [place], [place] Comment on above: KDIGO guidelines pro [...] MDRD (S/P/Bld) [Vol rate/Area] mL/min/{1.73_m2} >60 mL/min [place] Glucose [Mass/Vol] 134 mg/dL High 70 - 100 mg/dL [place] Interpretation and review of laboratory results Abnormal [place] Potassium [Moles/Vol] 3.0 mmol/L Low 3.5 - 5.1 mmol/L [place] Protein [Mass/Vol] 7.5 g/dL 6.3 - 8.2 g/dL [place] Sodium [Moles/Vol] 143 mmol/L 135 - 145 mmol/L [place] Urea nitrogen [Mass/Vol] 21 mg/dL High 7 - 20 mg/d L [place] Test Performed by [facility], [address] [place] [address] EEG REPORTon 10-20-2019 Torin Salazar MD - [...] EEG/VIDEO RECORDING (2:24 P.M. - 2:48 P.M.) CAREER SERVICES COORDINATOR: TIFF EEG CLINICAL INDICATION: Seizure-like activity. NEUROLOGICAL HISTORY/DIAGNOSIS: A 64-year-old woman with seizure-like activity, drug overdose, restlessness and confusion. MEDICAL HISTORY: Migraine headaches and metabolic encephalopathy. CURRENT PERTINENT MEDICATIONS: Haldol, Lopressor, and Protonix. MENTAL STATUS PRESENTATION: Awake, verbal. The patient is restless, refusing to allow for the EEG. Not allowing the injection molding technician to properly work for the electrodes and [...] cooperative, may be helpful if clinically indicated. [facility] Job ID: [id number] DOD:10/20/2019 06:32 P GLENDY/aletha DOT:10/20/2019 07:52 P Job Number: [id number] Document Number: [id number] ###### cc: Rajendra Kim MD [address] [address] Des Romero MD [address] [place] [address] [place], [place] POCT Arterialon 10-20-2019 Base Excess, Arterial 1.5 mmol/L -3 - 3 mmol/L [place] HCO3, Arterial 27.3 mmol/L High 21 - 25 mmol/L [place] Interpretation and review of laboratory results Abnormal [place] Oxygen saturation in Blood 99.2 % 95 - 100 % [place] pCO2, Arterial 46.3 mm[Hg] High 35 - 45 mm[Hg] [place] pH, Arterial 7.377 [place] pO2, Arterial 149.2 mm[Hg] High 80 - 100 mm[Hg] [place] Sodium [Moles/Vol] 100 mmol/L [place], [place] Comment on above: Performed by CLIA ID : [id number] [place], [place] TCO2, Arterial 28.7 mmol/L High 23 - 27 mmol/L [place] Test Performed by [facility], [address] Base Excess, Arterial 0.3 mmol/L -3 - 3 mmol/L [place] HCO3, Arterial 25.4 mmol/L High 21 - 25 mmol/L [place] Interpretation and review of laboratory results Abnormal [place] Oxygen saturation in Blood 98.1 % 95 - 100 % [place] pCO2, Arterial 42.0 mm[Hg] 35 - 45 mm[Hg] [place] pH, Arterial 7.390 [place] pO2, Arterial 107.0 mm[Hg] High 80 - 100 mm[Hg] [place] Sodium [Moles/Vol] 15 mmol/L [place] Comment on above: Performed by CLIA ID : [id number] [place] TCO2, Arterial 26.7 mmol/L 23 - 27 mmol/L [place] Test Performed by [facility], [address] POCT Glucoseon 10-20-2019 Glucose [Mass/Vol] 130 mg/dL High 70 - 100 mg/dL [place], [place] Comment on above: Test performed by ucose meter. Results may be 10%-15% lower than serum/plasma values. (CLIA ID [id number]) Interpretation and review of laboratory results Abnormal [place] Test Performed by [facility], [address] Procalcitoninon 10-20-2019 Procalcitonin <0.10 <0.10 ng/mL [place] Sodium [Moles/Vol] See Below [place], [place] Comment on above: PCT <0.50 = Low risk of severe sepsis and/or septic shock. PCT >2.00 = High risk of severe sepsis and/or septic shock. Test Performed by [facility], [address] [place] [address] [place] Troponinon 10-20-2019 Troponin I.cardiac [Mass/Vol] ng/mL 0 - 0.034 ng/mL [place] Comment on above: . Test Performed by [facility], [address], [place], [place] [address] [place] XR CHEST PORTABLEon 10-20-19 20 [place], [facility] Incoming Radiology Results From [facility] - 10/20/2019 2:48 PM EDT Patient Name: CHARLIE NGUYEN ---Diagnostic Radiology--- Exam Date/Time 10/20/2019 12:59:00 EDT Exam CR Chest Portable Ordering Physician DES ROMERO Accession Number [id number] CPT4 Codes 25641 () Reason For Exam SOB Report PORTABLE [...] DIANE Transcribed Date and Time: 10/20/2019 2:47 [place] Patient Name: CHARLIE NGUYEN ---Diagnostic Radiology--- Exam Date/Time 10/20/2019 12:59:00 EDT Exam CR Chest Portable Ordering Physician DES ROMERO Accession Number [id number] CPT4 Codes 94005 () Reason For Exam SOB Report PORTABLE [...] DIANE Transcribed Date and Time: 10/20/2019 2:47 [place] Basic Metabolic Panelon 09-30 Anion gap [Moles/Vol] 10 mmol/L [place], [place] Calcium [Mass/Vol] 8.0 mg/dL Low 8.4 - 10. 4 mg/dL [place] Chloride [Moles/Vol] 108 mmol/L High 98 - 10 7 mmol/L [place] CO2 [Moles/Vol] 24 mmol/L 22 - 30 mmol/L [place] Creatinine [Mass/Vol] 0.37 mg/dL Low 0.52 - 1.25 mg/dL [place] EGFR IF NonAfrican Peruvian >90.0 >60 mL/min [place] Comment on above: KDIGO guidelines pro [...] MDRD (S/P/Bld) [Vol rate/Area] mL/min/{1.73_m2} >60 mL/min [place] Glucose [Mass/Vol] 90 mg/dL 70 - 100 mg/dL [place] Potassium [Moles/Vol] 3.2 mmol/L Low 3.5 - 5.1 mmol/L [place] Sodium [Moles/Vol] 142 mmol/L 135 - 145 mmol/L [place] Urea nitrogen [Mass/Vol] 21 mg/dL High 7 - 20 mg/d L [place] CBC Auto Differentialon 05-2 0-2019 Absolute Baso # 0.1 10*3/uL 0 - 0.2 10*3/uL [place] Absolute Neut # 8.2 10*3/uL High 1.8 - 7 10*3/uL [place] Basophils/100 WBC (Bld) 1.2 % 0 - 2 % [place] Eosinophils (Bld) [#/Vol] 0.3 10*3/uL 0 - 0.5 10*3/uL [place] Eosinophils/100 WBC (Bld) 2.7 % 1 - 6 % [place] Erythrocyte distribution width (RBC) [Ratio] 15.5 % High 11.5 - 14.5 % [place] Granulocytes/100 WBC (Bld) 75.9 % 40 - 80 % [place] Hematocrit (Bld) [Volume fraction] 35.7 % 35 - 47 % [place] Hemoglobin (Bld) [Mass/Vol] 11.6 g/dL Low 11.7 - 16 g/dL [place] Interpretation and review of laboratory results Abnormal [place] Lymphocytes (Bld) [#/Vol] 1.4 10*3/uL 1 - 4.3 10*3/uL [place] Lymphocytes/100 WBC (Bld) 12.7 % Low 20 - 40 % [place] MCH (RBC) [Entitic mass] 32.0 pg 26 - 34 pg [place] MCHC (RBC) [Mass/Vol] 32.4 % 32 - 36 % [place] MCV (RBC) [Entitic vol] 98.6 fL High 79 - 98 fL [place], [place] Monocytes (Bld) [#/Vol] 0.8 10*3/uL 0 - 0.8 10*3/uL [place], [place] Monocytes/100 WBC (Bld) 7.5 % 2 - 10 % [place] Platelet mean volume (Bld) [Entitic vol] 7.4 fL 7.4 - 10.4 fL [place] Platelets (Bld) [#/Vol] 378 10*3/uL 140 - 440 10*3/uL [place] RBC (Bld) [#/Vol] 3.61 10*6/uL Low 3.8 - 5.2 10*6/uL [place] WBC (Bld) [#/Vol] 10.8 10*3/uL High 3.6 - 10.7 10*3/uL [place] Test Performed by [facility], [address] [place] [address] [place] Hepatic Function Panelon Albumin [Mass/Vol] 3.4 g/dL Low 3.5 - 5 g/dL [place] ALP [Catalytic activity/Vol] 106 U/L 38 - 126 U/L [place] ALT [Catalytic activity/Vol] 156 U/L High 0 - 34 U/L [place] Comment on above: The ALT test is perf ormed by an updated assay method. Please note that the reference intervals have been changed and are now sex specific. AST [Catalytic activity/Vol] 103 U/L High 15 - 46 U/L [place] Bilirubin Ql (U) 0.7 mg/dL 0.2 - 1.3 mg/dL [place] Bilirubin.direct [Mass/Vol] 0.0 mg/dL 0 - 0.3 mg/dL [place] Protein [Mass/Vol] 7.2 g/dL 6.3 - 8.2 g/dL [place] Otheron 10-19-2019 Interpretation and review of laboratory results Abnormal [place] Test Performed by [facility], [address] [place], [address] POCT Glucoseon 10-19-2019 Glucose [Mass/Vol] 88 mg/dL 70 - 100 mg/dL [place] Comment on above: Test performed by gl ucose meter. Results may be 10%-15% lower than serum/plasma values. (CLIA ID [id number]) Test Performed by [facility], [address], [place], [place] [id number] [place] [address] Glucose [Mass/Vol] 93 mg/dL 70 - 100 mg/dL [place] Comment on above: Test performed by gl ucose meter. Results may be 10%-15% lower than serum/plasma values. (CLIA ID [id number]) Test Performed by [facility], [address] Basic Metabolic Panelon 09-29 Anion gap [Moles/Vol] 12 mmol/L [place] Calcium [Mass/Vol] 8.4 mg/dL 8.4 - 10. 4 mg/dL [place] Chloride [Moles/Vol] 107 mmol/L 98 - 10 7 mmol/L [place] CO2 [Moles/Vol] 23 mmol/L 22 - 30 mmol/L [place] Creatinine [Mass/Vol] 0.48 mg/dL Low 0.52 - 1.25 mg/dL [place] EGFR IF NonAfrican Peruvian >90.0 >60 mL/min [place] Comment on above: KDIGO guidelines pro [...] MDRD (S/P/Bld) [Vol rate/Area] mL/min/{1.73_m2} >60 mL/min [place] Glucose [Mass/Vol] 120 mg/dL High 70 - 100 mg/dL [place] Potassium [Moles/Vol] 3.1 mmol/L Low 3.5 - 5.1 mmol/L [place] Sodium [Moles/Vol] 141 mmol/L 135 - 145 mmol/L [place] Urea nitrogen [Mass/Vol] 23 mg/dL High 7 - 20 mg/d L [place], [place] CBC Auto Differentialon 05-1 Absolute Baso # 0.1 10*3/uL 0 - 0.2 10*3/uL [place] Absolute Neut # 9.6 10*3/uL High 1.8 - 7 10*3/uL [place] Basophils/100 WBC (Bld) 1.0 % 0 - 2 % [place] Eosinophils (Bld) [#/Vol] 0.2 10*3/uL 0 - 0.5 10*3/uL [place] Eosinophils/100 WBC (Bld) 1.8 % 1 - 6 % [place] Erythrocyte distribution width (RBC) [Ratio] 15.6 % High 11.5 - 14.5 % [place] Granulocytes/100 WBC (Bld) 74.8 % 40 - 80 % [place] Hematocrit (Bld) [Volume fraction] 35.7 % 35 - 47 % [place] Hemoglobin (Bld) [Mass/Vol] 11.8 g/dL 11.7 - 16 g/dL [place] Interpretation and review of laboratory results Abnormal [place] Lymphocytes (Bld) [#/Vol] 2.0 10*3/uL 1 - 4.3 10*3/uL [place] Lymphocytes/100 WBC (Bld) 15.2 % Low 20 - 40 % [place] MCH (RBC) [Entitic mass] 31.8 pg 26 - 34 pg [place] MCHC (RBC) [Mass/Vol] 33.0 % 32 - 36 % [place] MCV (RBC) [Entitic vol] 96.4 fL 79 - 98 fL [place], [place] Monocytes (Bld) [#/Vol] 0.9 10*3/uL High 0 - 0.8 10*3/uL [place], [place] Monocytes/100 WBC (Bld) 7.2 % 2 - 10 % [place] Platelet mean volume (Bld) [Entitic vol] 7.7 fL 7.4 - 10.4 fL [place] Platelets (Bld) [#/Vol] 459 10*3/uL High 140 - 440 10*3/uL [place] RBC (Bld) [#/Vol] 3.70 10*6/uL Low 3.8 - 5.2 10*6/uL [place] WBC (Bld) [#/Vol] 12.8 10*3/uL High 3.6 - 10.7 10*3/uL [place] Test Performed by [facility], [address] [place] [id number] [place] [address] Hepatic Function Panelon Albumin [Mass/Vol] 3.6 g/dL 3.5 - 5 g/dL [place] ALP [Catalytic activity/Vol] 126 U/L 38 - 126 U/L [place] ALT [Catalytic activity/Vol] 165 U/L High 0 - 34 U/L [place] Comment on above: The ALT test is perf ormed by an updated assay method. Please note that the reference intervals have been changed and are now sex specific. AST [Catalytic activity/Vol] 110 U/L High 15 - 46 U/L [place] Bilirubin Ql (U) 0.7 mg/dL 0.2 - 1.3 mg/dL [place] Bilirubin.direct [Mass/Vol] 0.0 mg/dL 0 - 0.3 mg/dL [place] Protein [Mass/Vol] 7.6 g/dL 6.3 - 8.2 g/dL [place] Otheron 10-18-2019 Interpretation and review of laboratory results Abnormal [place] Test Performed by [facility], [address] [place], [place], [place] [id number] [place] [address] POCT Arterialon 10-18-2019 Base Excess, Arterial -0.3 mmol/L -3 - 3 mmol/L [place] HCO3, Arterial 24.8 mmol/L 21 - 25 mmol/L [place] Oxygen saturation in Blood 97.0 % 95 - 100 % [place] pCO2, Arterial 41.1 mm[Hg] 35 - 45 mm[Hg] [place] pH, Arterial 7.388 [place] pO2, Arterial 92.2 mm[Hg] 80 - 100 mm[Hg] [place] Sodium [Moles/Vol] 80 mmol/L [place] Comment on above: Performed by CLIA ID : [id number] [place], [place] TCO2, Arterial 26 mmol/L 23 - 27 mmol/L [place] Test Performed by [facility], [address] [place], [place], [place] [id number] [place] [address] POCT Glucoseon 10-18-2019 Glucose [Mass/Vol] 110 mg/dL High 70 - 100 mg/dL [place] Comment on above: Test performed by ucose meter. Results may be 10%-15% lower than serum/plasma values. (CLIA ID [id number]) Interpretation and review of laboratory results Abnormal [place] Test Performed by [facility], [address] [place], [place], [place] [id number] [place] [address] XR CHEST PORTABLEon 10-18-19 20 [place], [facility] Radiology Results From [facility] - 10/18/2019 5:57 PM EDT Patient Name: CHARLIE NGUYEN ---Diagnostic Radiology--- Exam Date/Time 10/18/2019 17:41:40 EDT Exam CR Chest Portable Ordering Physician Gene CORONA, RUDDY TRACY Accession Number [id number] CPT4 Codes 39503 () Reason For Exam sob Report Portable [...] structures are intact. Report Dictated on Workstation: [email or web address] --- Final --- Dictating Physician: MD CRANDALL RISA Signed Date and Time: 10/18/2019 5:56 pm Signed by: MD CRANDALL RISA Transcribed Date and Time: 10/18/2019 5:57 [place], [place] Patient Name: CHARLIE NGUYEN ---Diagnostic Radiology--- Exam Date/Time 10/18/2019 17:41:40 EDT Exam CR Chest Portable Ordering Physician Gene CORONA, RUDDY TRACY Accession Number [id number] CPT4 Codes 68610 () Reason For Exam sob Report Portable [...] structures are intact. Report Dictated on Workstation: [email or web address] --- Final --- Dictating Physician: MD CRANDALL RISA Signed Date and Time: 10/18/2019 5:56 pm Signed by: MD CRANDALL RISA Transcribed Date and Time: 10/18/2019 5:57 [place] Basic Metabolic Panelon 05-1 7-2020 Anion gap [Moles/Vol] 11 mmol/L [place] Calcium [Mass/Vol] 8.1 mg/dL Low 8.4 - 10. 4 mg/dL [place] Chloride [Moles/Vol] 107 mmol/L 98 - 10 7 mmol/L [place] CO2 [Moles/Vol] 24 mmol/L 22 - 30 mmol/L [place] Creatinine [Mass/Vol] 0.53 mg/dL 0.52 - 1.25 mg/dL [place] EGFR IF NonAfrican [place]uvian >90.0 >60 mL/min [place] Comment on above: KDIGO guidelines pro [...] MDRD (S/P/Bld) [Vol rate/Area] mL/min/{1.73_m2} >60 mL/min [place] Glucose [Mass/Vol] 105 mg/dL High 70 - 100 mg/dL [place] Potassium [Moles/Vol] 3.6 mmol/L 3.5 - 5.1 mmol/L [place] Sodium [Moles/Vol] 142 mmol/L 135 - 145 mmol/L [place] Urea nitrogen [Mass/Vol] 24 mg/dL High 7 - 20 mg/d L [place] CBC Auto Differentialon 05-1 7-2020 Absolute Baso # 0.2 10*3/uL 0 - 0.2 10*3/uL [place] Absolute Neut # 13.1 10*3/uL High 1.8 - 7 10*3/uL [place] Basophils/100 WBC (Bld) 1.3 % 0 - 2 % [place] Eosinophils (Bld) [#/Vol] 0.4 10*3/uL 0 - 0.5 10*3/uL [place] Eosinophils/100 WBC (Bld) 2.4 % 1 - 6 % [place] Erythrocyte distribution width (RBC) [Ratio] 15.3 % High 11.5 - 14.5 % [place] Granulocytes/100 WBC (Bld) 78.5 % 40 - 80 % [place] Hematocrit (Bld) [Volume fraction] 36.2 % 35 - 47 % [place] Hemoglobin (Bld) [Mass/Vol] 12.0 g/dL 11.7 - 16 g/dL [place] Interpretation and review of laboratory results Abnormal [place] Lymphocytes (Bld) [#/Vol] 2.1 10*3/uL 1 - 4.3 10*3/uL [place] Lymphocytes/100 WBC (Bld) 12.8 % Low 20 - 40 % [place] MCH (RBC) [Entitic mass] 32.3 pg 26 - 34 pg [place] MCHC (RBC) [Mass/Vol] 33.1 % 32 - 36 % [place] MCV (RBC) [Entitic vol] 97.6 fL 79 - 98 fL [place] Monocytes (Bld) [#/Vol] 0.8 10*3/uL 0 - 0.8 10*3/uL [place], [place] Monocytes/100 WBC (Bld) 5.0 % 2 - 10 % [place] Platelet mean volume (Bld) [Entitic vol] 7.3 fL Low 7.4 - 10.4 fL [place] Platelets (Bld) [#/Vol] 575 10*3/uL High 140 - 440 10*3/uL [place] RBC (Bld) [#/Vol] 3.71 10*6/uL Low 3.8 - 5.2 10*6/uL [place] WBC (Bld) [#/Vol] 16.7 10*3/uL High 3.6 - 10.7 10*3/uL [place] Test Performed by [facility], [address], [place], [place] [address] [place] Hepatic Function Panelon Albumin [Mass/Vol] 3.4 g/dL Low 3.5 - 5 g/dL [place] ALP [Catalytic activity/Vol] 131 U/L High 38 - 126 U/L [place] ALT [Catalytic activity/Vol] 219 U/L High 0 - 34 U/L [place] Comment on above: The ALT test is perf ormed by an updated assay method. Please note that the reference intervals have been changed and are now sex specific. AST [Catalytic activity/Vol] 86 U/L High 15 - 46 U/L [place] Bilirubin Ql (U) 0.8 mg/dL 0.2 - 1.3 mg/dL [place] Bilirubin.direct [Mass/Vol] 0.0 mg/dL 0 - 0.3 mg/dL [place] Protein [Mass/Vol] 7.3 g/dL 6.3 - 8.2 g/dL [place] Otheron 10-16-2019 Interpretation and review of laboratory results Abnormal [place] Test Performed by [facility], [address], [place], [place] [address] [place] Basic Metabolic Panelon 09-29 Anion gap [Moles/Vol] 10 mmol/L [place] Calcium [Mass/Vol] 8.2 mg/dL Low 8.4 - 10. 4 mg/dL [place] Chloride [Moles/Vol] 109 mmol/L High 98 - 10 7 mmol/L [place] CO2 [Moles/Vol] 24 mmol/L 22 - 30 mmol/L [place] Creatinine [Mass/Vol] 0.56 mg/dL 0.52 - 1.25 mg/dL [place] EGFR IF NonAfrican [place]uvian >90.0 >60 mL/min [place] Comment on above: KDIGO guidelines pro [...] MDRD (S/P/Bld) [Vol rate/Area] mL/min/{1.73_m2} >60 mL/min [place] Glucose [Mass/Vol] 117 mg/dL High 70 - 100 mg/dL [place] Potassium [Moles/Vol] 3.6 mmol/L 3.5 - 5.1 mmol/L [place] Sodium [Moles/Vol] 143 mmol/L 135 - 145 mmol/L [place] Urea nitrogen [Mass/Vol] 24 mg/dL High 7 - 20 mg/d L [place] CBC Auto Differentialon 05-1 Absolute Baso # 0.2 10*3/uL 0 - 0.2 10*3/uL [place] Absolute Neut # 13.2 10*3/uL High 1.8 - 7 10*3/uL [place] Basophils/100 WBC (Bld) 1.1 % 0 - 2 % [place] Eosinophils (Bld) [#/Vol] 0.4 10*3/uL 0 - 0.5 10*3/uL [place] Eosinophils/100 WBC (Bld) 2.5 % 1 - 6 % [place] Erythrocyte distribution width (RBC) [Ratio] 15.6 % High 11.5 - 14.5 % [place] Granulocytes/100 WBC (Bld) 76.2 % 40 - 80 % [place] Hematocrit (Bld) [Volume fraction] 38.5 % 35 - 47 % [place] Hemoglobin (Bld) [Mass/Vol] 12.2 g/dL 11.7 - 16 g/dL [place] Interpretation and review of laboratory results Abnormal [place] Lymphocytes (Bld) [#/Vol] 2.5 10*3/uL 1 - 4.3 10*3/uL [place] Lymphocytes/100 WBC (Bld) 14.3 % Low 20 - 40 % [place] MCH (RBC) [Entitic mass] 31.5 pg 26 - 34 pg [place] MCHC (RBC) [Mass/Vol] 31.8 % Low 32 - 36 % [place], [place] MCV (RBC) [Entitic vol] 99.0 fL High 79 - 98 fL [place] Monocytes (Bld) [#/Vol] 1.0 10*3/uL High 0 - 0.8 10*3/uL [place] Monocytes/100 WBC (Bld) 5.9 % 2 - 10 % [place] Platelet mean volume (Bld) [Entitic vol] 7.4 fL 7.4 - 10.4 fL [place] Platelets (Bld) [#/Vol] 654 10*3/uL High 140 - 440 10*3/uL [place] RBC (Bld) [#/Vol] 3.88 10*6/uL 3.8 - 5.2 10*6/uL [place] WBC (Bld) [#/Vol] 17.4 10*3/uL High 3.6 - 10.7 10*3/uL [place] Test Performed by [facility] [address], [place], [place] [address] [place], [place] Hepatic Function Panelon Albumin [Mass/Vol] 3.3 g/dL Low 3.5 - 5 g/dL [place], [place] ALP [Catalytic activity/Vol] 139 U/L High 38 - 126 U/L [place] ALT [Catalytic activity/Vol] 289 U/L High 0 - 34 U/L [place] Comment on above: The ALT test is perf ormed by an updated assay method. Please note that the reference intervals have been changed and are now sex specific. AST [Catalytic activity/Vol] 146 U/L High 15 - 46 U/L [place] Bilirubin Ql (U) 0.7 mg/dL 0.2 - 1.3 mg/dL [place] Bilirubin.direct [Mass/Vol] 0.0 mg/dL 0 - 0.3 mg/dL [place] Protein [Mass/Vol] 6.8 g/dL 6.3 - 8.2 g/dL [place], [place] Otheron 10-15-2019 Interpretation and review of laboratory results Abnormal [place] Test Performed by [facility], [address], [place], [place] [address] [place], [place] CBC Auto Differentialon 09-29 Absolute Baso # 0.3 10*3/uL High 0 - 0.2 10*3/uL [place], [place] Absolute Neut # 15.3 10*3/uL High 1.8 - 7 10*3/uL [place] Basophils/100 WBC (Bld) 1.4 % 0 - 2 % [place] Eosinophils (Bld) [#/Vol] 0.2 10*3/uL 0 - 0.5 10*3/uL [place] Eosinophils/100 WBC (Bld) 0.8 % Low 1 - 6 % [place] Erythrocyte distribution width (RBC) [Ratio] 15.5 % High 11.5 - 14.5 % [place] Granulocytes/100 WBC (Bld) 77.4 % 40 - 80 % [place] Hematocrit (Bld) [Volume fraction] 37.4 % 35 - 47 % [place] Hemoglobin (Bld) [Mass/Vol] 12.2 g/dL 11.7 - 16 g/dL [place] Interpretation and review of laboratory results Abnormal [place] Lymphocytes (Bld) [#/Vol] 2.6 10*3/uL 1 - 4.3 10*3/uL [place], [place] Lymphocytes/100 WBC (Bld) 13.1 % Low 20 - 40 % [place] MCH (RBC) [Entitic mass] 31.6 pg 26 - 34 pg [place] MCHC (RBC) [Mass/Vol] 32.6 % 32 - 36 % [place], [place] MCV (RBC) [Entitic vol] 96.9 fL 79 - 98 fL [place], [place] Monocytes (Bld) [#/Vol] 1.4 10*3/uL High 0 - 0.8 10*3/uL [place], [place] Monocytes/100 WBC (Bld) 7.3 % 2 - 10 % [place] Platelet mean volume (Bld) [Entitic vol] 7.6 fL 7.4 - 10.4 fL [place], [place] Platelets (Bld) [#/Vol] 669 10*3/uL High 140 - 440 10*3/uL [place] RBC (Bld) [#/Vol] 3.86 10*6/uL 3.8 - 5.2 10*6/uL [place] WBC (Bld) [#/Vol] 19.8 10*3/uL High 3.6 - 10.7 10*3/uL [place] Test Performed by [facility], [address], [place], [place] [id number] [place] [address] Comprehensive Metabolic Pane rafiq 10-14-2019 Albumin [Mass/Vol] 3.2 g/dL Low 3.5 - 5 g/dL [place] ALP [Catalytic activity/Vol] 155 U/L High 38 - 126 U/L [place] ALT [Catalytic activity/Vol] 221 U/L High 0 - 34 U/L [place] Comment on above: The ALT test is perf ormed by an updated assay method. Please note that the reference intervals have been changed and are now sex specific. Anion gap [Moles/Vol] 9 mmol/L [place], [place] AST [Catalytic activity/Vol] 141 U/L High 15 - 46 U/L [place] Bilirubin Ql (U) 0.8 mg/dL 0.2 - 1.3 mg/dL [place] Calcium [Mass/Vol] 8.2 mg/dL Low 8.4 - 10. 4 mg/dL [place] Chloride [Moles/Vol] 105 mmol/L 98 - 10 7 mmol/L [place] CO2 [Moles/Vol] 27 mmol/L 22 - 30 mmol/L [place] Creatinine [Mass/Vol] 0.68 mg/dL 0.52 - 1.25 mg/dL [place], [place] EGFR IF NonAfrican [place]uvian >90.0 >60 mL/min [place] Comment on above: KDIGO guidelines pro [...] MDRD (S/P/Bld) [Vol rate/Area] mL/min/{1.73_m2} >60 mL/min [place] Glucose [Mass/Vol] 106 mg/dL High 70 - 100 mg/dL [place] Interpretation and review of laboratory results Abnormal [place] Potassium [Moles/Vol] 3.1 mmol/L Low 3.5 - 5.1 mmol/L [place] Protein [Mass/Vol] 7.0 g/dL 6.3 - 8.2 g/dL [place] Sodium [Moles/Vol] 141 mmol/L 135 - 145 mmol/L [place], [place] Urea nitrogen [Mass/Vol] 22 mg/dL High 7 - 20 mg/d L [place] HEPATITIS PANEL, ACUTEon HAV IgM IA Qn (S) NOT DETECTED Not-Detect ed NA [place] Hep B Core Ab, IgM NOT DETECTED Not-Detec senait NA [place] Hepatitis B Surface Ag NOT DETECTED Not-D etected NA [place] Hepatitis C Ab NOT DETECTED Not-Detected NA [place] Comment on above: Patients with DETECT ED Hepatitis C Ab results should have a new specimen submitted for supplemental testing with a Hepatitis C Quantitative RNA assay (viral load), if clinically indicated. Test Performed by [facility], [address] [place] [address] [place], [place] Magnesiumon 10-14-2019 Magnesium [Mass/Vol] 1.7 mg/dL 1.6 - 2 .3 mg/dL [place], [place] Otheron 10-14-2019 Test Performed by [facility], [address] [place], [place] [address] [place], [place] Phosphoruson 10-14-2019 Phosphate [Mass/Vol] 3.5 mg/dL 2.5 - 4 .5 mg/dL [place], [place] XR CHEST PORTABLEon 10-14-19 20 [place], [facility] Incoming Radiology Results From [facility] - 10/14/2019 9:19 AM EDT Patient Name: CHARLIE NGUYEN ---Diagnostic Radiology--- Exam Date/Time 10/14/2019 08:30:00 EDT Exam CR Chest Portable Ordering Physician CLINTON DELEON Accession Number [id number] CPT4 Codes 33059 () Reason For Exam resp failure/ pneumonia/ effusion/ on vent Report Indication: Respiratory failure. Single portable frontal view of the chest timed 0806 is compared to the study dated 10/13/2019. [...] ANTHONY Transcribed Date and Time: 10/14/2019 9:19 [place], [place] Patient Name: CHARLIE NGUYEN ---Diagnostic Radiology--- Exam Date/Time 10/14/2019 08:30:00 EDT Exam CR Chest Portable Ordering Physician CLINTON DELEON Accession Number [id number] CPT4 Codes 62841 () Reason For Exam resp failure/ pneumonia/ effusion/ on vent Report Indication: Respiratory failure. Single portable frontal view of the chest timed 0806 is compared to the study dated 10/13/2019. [...] ANTHONY Transcribed Date and Time: 10/14/2019 9:19 [place], [place] CBC Auto Differentialon 09-29 Absolute Baso # 0.1 10*3/uL 0 - 0.2 10*3/uL [place], [place] Absolute Neut # 13.4 10*3/uL High 1.8 - 7 10*3/uL [place], [place] Basophils/100 WBC (Bld) 0.8 % 0 - 2 % [place] Eosinophils (Bld) [#/Vol] 0.0 10*3/uL 0 - 0.5 10*3/uL [place] Eosinophils/100 WBC (Bld) 0.0 % Low 1 - 6 % [place] Erythrocyte distribution width (RBC) [Ratio] 14.7 % High 11.5 - 14.5 % [place] Granulocytes/100 WBC (Bld) 84.2 % High 40 - 80 % [place] Hematocrit (Bld) [Volume fraction] 36.1 % 35 - 47 % [place] Hemoglobin (Bld) [Mass/Vol] 11.9 g/dL 11.7 - 16 g/dL [place] Lymphocytes (Bld) [#/Vol] 1.5 10*3/uL 1 - 4.3 10*3/uL [place], [place] Lymphocytes/100 WBC (Bld) 9.7 % Low 20 - 40 % [place] MCH (RBC) [Entitic mass] 31.6 pg 26 - 34 pg [place] MCHC (RBC) [Mass/Vol] 33.1 % 32 - 36 % [place] MCV (RBC) [Entitic vol] 95.7 fL 79 - 98 fL [place], [place] Monocytes (Bld) [#/Vol] 0.8 10*3/uL 0 - 0.8 10*3/uL [place], [place] Monocytes/100 WBC (Bld) 5.3 % 2 - 10 % [place] Platelet mean volume (Bld) [Entitic vol] 7.7 fL 7.4 - 10.4 fL [place], [place] Platelets (Bld) [#/Vol] 668 10*3/uL High 140 - 440 10*3/uL [place] RBC (Bld) [#/Vol] 3.78 10*6/uL Low 3.8 - 5.2 10*6/uL [place] WBC (Bld) [#/Vol] 15.9 10*3/uL High 3.6 - 10.7 10*3/uL [place], [place] Comprehensive Metabolic Pane rafiq 10-13-2019 Albumin [Mass/Vol] 3.4 g/dL Low 3.5 - 5 g/dL [place] ALP [Catalytic activity/Vol] 174 U/L High 38 - 126 U/L [place] ALT [Catalytic activity/Vol] 122 U/L High 0 - 34 U/L [place] Comment on above: The ALT test is perf ormed by an updated assay method. Please note that the reference intervals have been changed and are now sex specific. Anion gap [Moles/Vol] 9 mmol/L [place], [place] AST [Catalytic activity/Vol] 118 U/L High 15 - 46 U/L [place] Bilirubin Ql (U) 0.9 mg/dL 0.2 - 1.3 mg/dL [place] Calcium [Mass/Vol] 8.2 mg/dL Low 8.4 - 10. 4 mg/dL [place] Chloride [Moles/Vol] 105 mmol/L 98 - 10 7 mmol/L [place] CO2 [Moles/Vol] 28 mmol/L 22 - 30 mmol/L [place] Creatinine [Mass/Vol] 0.52 mg/dL 0.52 - 1.25 mg/dL [place], [place] EGFR IF NonAfrican [place]uvian >90.0 >60 mL/min [place] Comment on above: KDIGO guidelines pro [...] MDRD (S/P/Bld) [Vol rate/Area] mL/min/{1.73_m2} >60 mL/min [place] Glucose [Mass/Vol] 110 mg/dL High 70 - 100 mg/dL [place] Potassium [Moles/Vol] 2.8 mmol/L Low 3.5 - 5.1 mmol/L [place] Protein [Mass/Vol] 7.2 g/dL 6.3 - 8.2 g/dL [place] Sodium [Moles/Vol] 142 mmol/L 135 - 145 mmol/L [place] Urea nitrogen [Mass/Vol] 15 mg/dL 7 - 20 mg/d L [place] Magnesiumon 10-13-2019 Magnesium [Mass/Vol] 1.8 mg/dL 1.6 - 2 .3 mg/dL [place], [place] Otheron 10-13-2019 Interpretation and review of laboratory results Abnormal [place] Test Performed by [facility], [address] [place], [place] [address] [place], [place] Phosphoruson 10-13-2019 Phosphate [Mass/Vol] 2.6 mg/dL 2.5 - 4 .5 mg/dL [place] Potassiumon 10-13-2019 Potassium [Moles/Vol] 3.4 mmol/L Low 3.5 - 5.1 mmol/L [place] XR CHEST PORTABLEon 10-13-19 20 Patient Name: CHARLIE NGUYEN ---Diagnostic Radiology--- Exam Date/Time 10/13/2019 05:36:07 EDT Exam CR Chest Portable Ordering Physician CLINTON DELEON Accession Number [id number] CPT4 Codes 74781 () Reason For Exam resp failure/ pneumonia/ [...] Small bilateral effusions. Report Dictated on Workstation: [id number] --- Final --- Dictating Physician: DO DICKEY ALFRED Signed Date and Time: 10/13/2019 5:57 am Signed by: DO DICKEY ALFRED Transcribed Date and Time: 10/13/2019 5:58 [facility], [place] [facility], [facility] Incoming Radiology Results From [facility] - 10/13/2019 5:58 AM EDT Patient Name: CHARLIE NGUYEN ---Diagnostic Radiology--- Exam Date/Time 10/13/2019 05:36:07 EDT Exam CR Chest Portable Ordering Physician CLINTON DELEON Accession Number [id number] CPT4 Codes 03888 () Reason For Exam resp failure/ pneumonia/ [...] Small bilateral effusions. Report Dictated on Workstation: [id number] --- Final --- Dictating Physician: DO DICKEY ALFRED Signed Date and Time: 10/13/2019 5:57 am Signed by: DO DICKEY ALFRED Transcribed Date and Time: 10/13/2019 5:58 [place], [place] CBC Auto Differentialon 05 Absolute Baso # 0.0 10*3/uL 0 - 0.2 10*3/uL [place] Absolute Neut # 8.0 10*3/uL High 1.8 - 7 10*3/uL [place], [place] Basophils/100 WBC (Bld) 0.3 % 0 - 2 % [place] Eosinophils (Bld) [#/Vol] 0.0 10*3/uL 0 - 0.5 10*3/uL [place] Eosinophils/100 WBC (Bld) 0.0 % Low 1 - 6 % [place] Erythrocyte distribution width (RBC) [Ratio] 15.2 % High 11.5 - 14.5 % [place] Granulocytes/100 WBC (Bld) 84.5 % High 40 - 80 % [place] Hematocrit (Bld) [Volume fraction] 32.7 % Low 35 - 47 % [place] Hemoglobin (Bld) [Mass/Vol] 10.7 g/dL Low 11.7 - 16 g/dL [place] Interpretation and review of laboratory results Abnormal [place] Lymphocytes (Bld) [#/Vol] 0.9 10*3/uL Low 1 - 4.3 10*3/uL [place], [place] Lymphocytes/100 WBC (Bld) 9.3 % Low 20 - 40 % [place] MCH (RBC) [Entitic mass] 31.9 pg 26 - 34 pg [place] MCHC (RBC) [Mass/Vol] 32.9 % 32 - 36 % [place] MCV (RBC) [Entitic vol] 97.2 fL 79 - 98 fL [place], [place] Monocytes (Bld) [#/Vol] 0.6 10*3/uL 0 - 0.8 10*3/uL [place], [place] Monocytes/100 WBC (Bld) 5.9 % 2 - 10 % [place] Platelet mean volume (Bld) [Entitic vol] 8.0 fL 7.4 - 10.4 fL [place], [place] Platelets (Bld) [#/Vol] 571 10*3/uL High 140 - 440 10*3/uL [place] RBC (Bld) [#/Vol] 3.36 10*6/uL Low 3.8 - 5.2 10*6/uL [place] WBC (Bld) [#/Vol] 9.4 10*3/uL 3.6 - 10.7 10*3/uL [place] Test Performed by [facility], [address] [place], [place] [address] [place], [place] Comprehensive Metabolic Pane rafiq 10-12-2019 Albumin [Mass/Vol] 3.3 g/dL Low 3.5 - 5 g/dL [place] ALP [Catalytic activity/Vol] 157 U/L High 38 - 126 U/L [place] ALT [Catalytic activity/Vol] 61 U/L High 0 - 34 U/L [place] Comment on above: The ALT test is perf ormed by an updated assay method. Please note that the reference intervals have been changed and are now sex specific. Anion gap [Moles/Vol] 8 mmol/L [place], [place] AST [Catalytic activity/Vol] 69 U/L High 15 - 46 U/L [place] Bilirubin Ql (U) 0.5 mg/dL 0.2 - 1.3 mg/dL [place] Calcium [Mass/Vol] 8.0 mg/dL Low 8.4 - 10. 4 mg/dL [place] Chloride [Moles/Vol] 103 mmol/L 98 - 10 7 mmol/L [place] CO2 [Moles/Vol] 29 mmol/L 22 - 30 mmol/L [place] Creatinine [Mass/Vol] 0.48 mg/dL Low 0.52 - 1.25 mg/dL [place] EGFR IF NonAfrican [place]uvian >90.0 >60 mL/min [place] Comment on above: KDIGO guidelines pro [...] MDRD (S/P/Bld) [Vol rate/Area] mL/min/{1.73_m2} >60 mL/min [place] Glucose [Mass/Vol] 168 mg/dL High 70 - 100 mg/dL [place] Interpretation and review of laboratory results Abnormal [place] Potassium [Moles/Vol] 3.7 mmol/L 3.5 - 5.1 mmol/L [place] Protein [Mass/Vol] 6.9 g/dL 6.3 - 8.2 g/dL [place] Sodium [Moles/Vol] 140 mmol/L 135 - 145 mmol/L [place], [place] Urea nitrogen [Mass/Vol] 21 mg/dL High 7 - 20 mg/d L [place], [place] Culture, Respiratoryon 10-11 Interpretation and review of laboratory results Abnormal [place] Respiratory Culture Rare Negative for PBP2a (MSSA). [place], [place] Respiratory Culture Staphylococcus aureus Abnormal [place] Respiratory Culture Few normal respiratory naomi. Abnormal [place] Test Performed by [facility] [employer] [address] [place] [id number] Specimen Source Comment:Endotracheal [place], [place] Magnesiumon 10-12-2019 Magnesium [Mass/Vol] 1.8 mg/dL 1.6 - 2 .3 mg/dL [place] Otheron 10-12-2019 Test Performed by [facility], [address] [place], [place] [id number] [place] [address] POCT Arterialon 10-12-2019 Base Excess, Arterial 3.1 mmol/L High -3 - 3 mmol/L [place] HCO3, Arterial 27.6 mmol/L High 21 - 25 mmol/L [place] Interpretation and review of laboratory results Abnormal [place], [place] Oxygen saturation in Blood 94.8 % Low 95 - 100 % [place] pCO2, Arterial 40.8 mm[Hg] 35 - 45 mm[Hg] [place] pH, Arterial 7.438 [place] pO2, Arterial 72.1 mm[Hg] Low 80 - 100 mm[Hg] [place] Sodium [Moles/Vol] 45 mmol/L [place] Comment on above: Performed by [employer] [facility] ID : [id number] [place], [place] TCO2, Arterial 28.8 mmol/L High 23 - 27 mmol/L [place] Test Performed by [facility], [address] Phosphoruson 10-12-2019 Phosphate [Mass/Vol] 3.5 mg/dL 2.5 - 4 .5 mg/dL [place] Vancomycin, [place] 020 Interpretation and review of laboratory results Abnormal [place] Vancomycin Tr 11.5 ug/mL Low 15 - 20 ug/mL [place] Comment on above: . Test Performed by [facility], [address] XR CHEST PORTABLEon 10-12-19 20 [place], [facility] Incoming Radiology Results From [facility] - 10/12/2019 4:52 AM EDT Patient Name: CHARLIE NGUYEN ---Diagnostic Radiology--- Exam Date/Time 10/12/2019 04:18:26 EDT Exam CR Chest Portable Ordering Physician CLINTON DELEON Accession Number [id number] CPT4 Codes 88267 () Reason For Exam resp failure/ pneumonia/ [...] right sided atelectasis Report Dictated on Workstation: [id number] --- Final --- Dictating Physician: DO DICKEY ALFRED Signed Date and Time: 10/12/2019 4:51 am Signed by: DO DICKEY ALFRED Transcribed Date and Time: 10/12/2019 4:52 [place] Patient Name: CHARLIE NGUYEN ---Diagnostic Radiology--- Exam Date/Time 10/12/2019 04:18:26 EDT Exam CR Chest Portable Ordering Physician CLINTON DELEON Accession Number [id number] CPT4 Codes 58792 () Reason For Exam resp failure/ pneumonia/ [...] right sided atelectasis Report Dictated on Workstation: [id number] --- Final --- Dictating Physician: DO DICKEY ALFRED Signed Date and Time: 10/12/2019 4:51 am Signed by: DO DICKEY ALFRED Transcribed Date and Time: 10/12/2019 4:52 [place] CBC Auto Differentialon 05 Absolute Baso # 0.0 10*3/uL 0 - 0.2 10*3/uL [place] Absolute Neut # 6.2 10*3/uL 1.8 - 7 10*3/uL [place] Basophils/100 WBC (Bld) 0.4 % 0 - 2 % [place] Eosinophils (Bld) [#/Vol] 0.0 10*3/uL 0 - 0.5 10*3/uL [place] Eosinophils/100 WBC (Bld) 0.1 % Low 1 - 6 % [place] Erythrocyte distribution width (RBC) [Ratio] 15.2 % High 11.5 - 14.5 % [place] Granulocytes/100 WBC (Bld) 75.5 % 40 - 80 % [place] Hematocrit (Bld) [Volume fraction] 30.1 % Low 35 - 47 % [place] Hemoglobin (Bld) [Mass/Vol] 9.8 g/dL Low 11.7 - 16 g/dL [place] Interpretation and review of laboratory results Abnormal [place] Lymphocytes (Bld) [#/Vol] 1.2 10*3/uL 1 - 4.3 10*3/uL [place] Lymphocytes/100 WBC (Bld) 14.1 % Low 20 - 40 % [place] MCH (RBC) [Entitic mass] 31.8 pg 26 - 34 pg [place] MCHC (RBC) [Mass/Vol] 32.7 % 32 - 36 % [place] MCV (RBC) [Entitic vol] 97.1 fL 79 - 98 fL [place] Monocytes (Bld) [#/Vol] 0.8 10*3/uL 0 - 0.8 10*3/uL [place] Monocytes/100 WBC (Bld) 9.9 % 2 - 10 % [place] Platelet mean volume (Bld) [Entitic vol] 7.7 fL 7.4 - 10.4 fL [place] Platelets (Bld) [#/Vol] 494 10*3/uL High 140 - 440 10*3/uL [place] RBC (Bld) [#/Vol] 3.10 10*6/uL Low 3.8 - 5.2 10*6/uL [place] WBC (Bld) [#/Vol] 8.2 10*3/uL 3.6 - 10.7 10*3/uL [place] Test Performed by [facility], [address], [place], [place] [address] [place] Comprehensive Metabolic Pane rafiq 10-11-2019 Albumin [Mass/Vol] 3.1 g/dL Low 3.5 - 5 g/dL [place] ALP [Catalytic activity/Vol] 163 U/L High 38 - 126 U/L [place] ALT [Catalytic activity/Vol] 36 U/L High 0 - 34 U/L [place] Comment on above: The ALT test is perf ormed by an updated assay method. Please note that the reference intervals have been changed and are now sex specific. Anion gap [Moles/Vol] 9 mmol/L [place], [place] AST [Catalytic activity/Vol] 46 U/L 15 - 46 U/L [place] Bilirubin Ql (U) 0.5 mg/dL 0.2 - 1.3 mg/dL [place] Calcium [Mass/Vol] 8.1 mg/dL Low 8.4 - 10. 4 mg/dL [place] Chloride [Moles/Vol] 103 mmol/L 98 - 10 7 mmol/L [place] CO2 [Moles/Vol] 29 mmol/L 22 - 30 mmol/L [place] Creatinine [Mass/Vol] 0.5 mg/dL Low 0.52 - 1.25 mg/dL [place] EGFR IF NonAfrican [place]uvian >90.0 >60 mL/min [place] Comment on above: CORRECTED RESULT...P revious above value was >60.0, verified on 10/11/19 at 05:39 by [facility] . KDIGO guidelines provide the following GFR [...] MDRD (S/P/Bld) [Vol rate/Area] mL/min/{1.73_m2} >60 mL/min [place] Comment on above: CORRECTED RESULT...P revious above value was >60.0, verified on 10/11/19 at 05:39 by [facility] . Glucose [Mass/Vol] 144 mg/dL High 70 - 100 mg/dL [place] Interpretation and review of laboratory results Abnormal [place] Potassium [Moles/Vol] 3.7 mmol/L 3.5 - 5.1 mmol/L [place] Protein [Mass/Vol] 6.5 g/dL 6.3 - 8.2 g/dL [place] Sodium [Moles/Vol] 140 mmol/L 135 - 145 mmol/L [place] Urea nitrogen [Mass/Vol] 16 mg/dL 7 - 20 mg/d L [place] Magnesiumon 10-11-2019 Magnesium [Mass/Vol] 1.9 mg/dL 1.6 - 2 .3 mg/dL [place] Otheron 10-11-2019 Test Performed by [facility], [address], [place], [place] [address] [place] POCT Arterialon 10-11-2019 Base Excess, Arterial 3.4 mmol/L High -3 - 3 mmol/L [place] HCO3, Arterial 28.2 mmol/L High 21 - 25 mmol/L [place] Interpretation and review of laboratory results Abnormal [place] Oxygen saturation in Blood 95.8 % 95 - 100 % [place] pCO2, Arterial 43.1 mm[Hg] 35 - 45 mm[Hg] [place] pH, Arterial 7.424 [place] pO2, Arterial 79.2 mm[Hg] Low 80 - 100 mm[Hg] [place] Sodium [Moles/Vol] 50 mmol/L [place] Comment on above: Performed by [facility] ID : [id number] [place], [place] TCO2, Arterial 29.5 mmol/L High 23 - 27 mmol/L [place] Test Performed by [facility], [address], [place], [place] [address] [place] Phosphoruson 10-11-2019 Phosphate [Mass/Vol] 3.0 mg/dL 2.5 - 4 .5 mg/dL [place] XR CHEST PORTABLEon 10-11-19 20 Patient Name: CHARLIE NGUYEN ---Diagnostic Radiology--- Exam Date/Time 10/11/2019 05:32:04 EDT Exam CR Chest Portable Ordering Physician CLINTON DELEON Accession Number [id number] CPT4 Codes 06602 () Reason For Exam resp failure/ pneumonia/ [...] ALFRED Transcribed Date and Time: 10/11/2019 5:32 [place], [facility] Incoming Radiology Results From [facility] - 10/11/2019 5:32 AM EDT Patient Name: CHARLIE NGUYEN ---Diagnostic Radiology--- Exam Date/Time 10/11/2019 05:32:04 EDT Exam CR Chest Portable Ordering Physician CLINTON DELEON Accession Number [id number] CPT4 Codes 43544 () Reason For Exam resp failure/ pneumonia/ [...] ALFRED Transcribed Date and Time: 10/11/2019 5:32 [place] CBC Auto Differentialon 05- Absolute Baso # 0.0 10*3/uL 0 - 0.2 10*3/uL [place] Absolute Neut # 7.1 10*3/uL High 1.8 - 7 10*3/uL [place] Basophils/100 WBC (Bld) 0.3 % 0 - 2 % [place] Eosinophils (Bld) [#/Vol] 0.0 10*3/uL 0 - 0.5 10*3/uL [place] Eosinophils/100 WBC (Bld) 0.3 % Low 1 - 6 % [place] Erythrocyte distribution width (RBC) [Ratio] 15.4 % High 11.5 - 14.5 % [place] Granulocytes/100 WBC (Bld) 77.3 % 40 - 80 % [place] Hematocrit (Bld) [Volume fraction] 29.0 % Low 35 - 47 % [place] Hemoglobin (Bld) [Mass/Vol] 9.7 g/dL Low 11.7 - 16 g/dL [place] Interpretation and review of laboratory results Abnormal [place] Lymphocytes (Bld) [#/Vol] 1.0 10*3/uL 1 - 4.3 10*3/uL [place] Lymphocytes/100 WBC (Bld) 11.4 % Low 20 - 40 % [place] MCH (RBC) [Entitic mass] 32.1 pg 26 - 34 pg [place] MCHC (RBC) [Mass/Vol] 33.2 % 32 - 36 % [place] MCV (RBC) [Entitic vol] 96.6 fL 79 - 98 fL [place] Monocytes (Bld) [#/Vol] 1.0 10*3/uL High 0 - 0.8 10*3/uL [place] Monocytes/100 WBC (Bld) 10.7 % High 2 - 10 % [place] Platelet mean volume (Bld) [Entitic vol] 7.9 fL 7.4 - 10.4 fL [place] Platelets (Bld) [#/Vol] 380 10*3/uL 140 - 440 10*3/uL [place] RBC (Bld) [#/Vol] 3.01 10*6/uL Low 3.8 - 5.2 10*6/uL [place] WBC (Bld) [#/Vol] 9.2 10*3/uL 3.6 - 10.7 10*3/uL [place] Test Performed by [facility], [address], [place], [place] [address] [place] Comprehensive Metabolic Pane rafiq 10-10-2019 Albumin [Mass/Vol] 3.2 g/dL Low 3.5 - 5 g/dL [place] ALP [Catalytic activity/Vol] 177 U/L High 38 - 126 U/L [place] ALT [Catalytic activity/Vol] 34 U/L 0 - 34 U/L [place] Comment on above: The ALT test is perf ormed by an updated assay method. Please note that the reference intervals have been changed and are now sex specific. Anion gap [Moles/Vol] 8 mmol/L [place] AST [Catalytic activity/Vol] 39 U/L 15 - 46 U/L [place] Bilirubin Ql (U) 0.8 mg/dL 0.2 - 1.3 mg/dL [place] Calcium [Mass/Vol] 7.8 mg/dL Low 8.4 - 10. 4 mg/dL [place] Chloride [Moles/Vol] 103 mmol/L 98 - 10 7 mmol/L [place] CO2 [Moles/Vol] 29 mmol/L 22 - 30 mmol/L [place] Creatinine [Mass/Vol] 0.56 mg/dL 0.52 - 1.25 mg/dL [place] EGFR IF NonAfrican [place]uv[place] >60.0 >60 mL/min [place] Comment on above: Source- MDRD equatio n with creatinine calibration to IDMS(NKDEP) eGFR not recommended for drug dose adjustment GFR/1.73 sq M predicted among blacks MDRD (S/P/Bld) [Vol rate/Area] mL/min/{1.73_m2} >60 mL/min [place] Glucose [Mass/Vol] 126 mg/dL High 70 - 100 mg/dL [place] Interpretation and review of laboratory results Abnormal [facility], [place] Potassium [Moles/Vol] 3.7 mmol/L 3.5 - 5.1 mmol/L [place] Protein [Mass/Vol] 6.6 g/dL 6.3 - 8.2 g/dL [place] Sodium [Moles/Vol] 140 mmol/L 135 - 145 mmol/L [place] Urea nitrogen [Mass/Vol] 15 mg/dL 7 - 20 mg/d L [facility], [place] EKG 12 [place] 10-10-2019 Rodolfo, [facility] Cardiology Results From [facility] - 10/10/2019 2:02 PM EDT [facility] Test Date: 2019-10-08 Pat Name: Charlie Nguyen Department: [facility] Room: 232 Gender: F [employer] Maintainer: JOVI : 1955 Requested By: NICA Studio[employer]CO A Order Number: [id number] Reading MD: Edmar Atkinson Measurements Intervals Tanana Rate: 109 P: 19 HI: 180 QRS: 10 QRSD: 100 T: 45 QT: 324 QTc: 437 Interpretive Statements SINUS TACHYCARDIA VENTRICULAR PREMATURE COMPLEX CONSIDER ANTEROSEPTAL INFARCT Electrical alternans, consider pericardial effusion Electronically Signed On 10-10-2019 14:01:[address] [facility] Test Date: 2019-10-08 Pat Name: Charlie Nguyen Department: [facility] Room: 232 Gender: F [employer] Maintainer: JOVI : 1955 Requested By: NICA Studio[employer]CO A Order Number: [id number] Reading MD: Edmar Atkinson Measurements Intervals Tanana Rate: 109 P: 19 HI: 180 QRS: 10 QRSD: 100 T: 45 QT: 324 QTc: 437 Interpretive Statements SINUS TACHYCARDIA VENTRICULAR PREMATURE COMPLEX CONSIDER ANTEROSEPTAL INFARCT Electrical alternans, consider pericardial effusion Electronically Signed On 10-10-2019 14:01:[address] [facility] Test Date: 2019-10-08 Pat Name: Charlie Nguyen Department: [facility] Room: 232 Gender: F [employer] Maintainer: : 1955 Requested By: NICA SAL Order Number: [id number] Reading MD: Edmar Atkinson Measurements Intervals Tanana Rate: 72 P: 39 HI: 184 QRS: 7 QRSD: 108 T: 19 QT: 412 QTc: 451 Interpretive Statements SINUS RHYTHM BORDERLINE INTRAVENTRICULAR CONDUCTION DELAY Compared to ECG 10/07/2019 21:02:04 No significant changes Electronically Signed On 10-10-2019 12:46:05 EDT [place], [facility] Incoming Cardiology Results From [facility] - 10/10/2019 12:47 PM EDT [facility] Test Date: 2019-10-08 Pat Name: Charlie Nguyen Department: [facility] Room: 232 Gender: F [employer] Maintainer: : 1955 Requested By: NICA SAL Order Number: [id number] Reading MD: Edmar Atkinson Measurements Intervals Tanana Rate: 72 P: 39 HI: 184 QRS: 7 QRSD: 108 T: 19 QT: 412 QTc: 451 Interpretive Statements SINUS RHYTHM BORDERLINE INTRAVENTRICULAR CONDUCTION DELAY Compared to ECG 10/07/2019 21:02:04 No significant changes Electronically Signed On 10-10-2019 12:46:05 EDT by [place], [place] Gram Stainon 10-10-2019 INR Coag (Bld) [Relative time] Many polymorphonuclear cells/lpf. Few epithelial cells/lpf. Rare gram positive cocci in clusters. Rare gram positive bacilli. [place], [place] Test Performed by [employer] [employer] [address] [place] [address] Specimen Source Comment:Endotracheal [place], [place] Magnesiumon 10-10-2019 Magnesium [Mass/Vol] 1.9 mg/dL 1.6 - 2 .3 mg/dL [place], [place] Otheron 10-10-2019 Test Performed by [employer] [employer] [address] [place], [place] [address] [place], [place] POCT Arterialon 10-10-2019 Base Excess, Arterial 5.1 mmol/L High -3 - 3 mmol/L [place], [place] HCO3, Arterial 29.6 mmol/L High 21 - 25 mmol/L [place] Interpretation and review of laboratory results Abnormal [place] Oxygen saturation in Blood 95.5 % 95 - 100 % [place] pCO2, Arterial 42.7 mm[Hg] 35 - 45 mm[Hg] [place] pH, Arterial 7.449 [place] pO2, Arterial 75.7 mm[Hg] Low 80 - 100 mm[Hg] [place] Sodium [Moles/Vol] 50 mmol/L [place] Comment on above: Performed by CLIA ID : [id number] [place], [place] TCO2, Arterial 30.9 mmol/L High 23 - 27 mmol/L [place] Test Performed by [facility], [facility] [address] [place], [place] [address] [place], [place] Phosphoruson 10-10-2019 Phosphate [Mass/Vol] 3.8 mg/dL 2.5 - 4 .5 mg/dL [place], [place] XR CHEST PORTABLEon 10-10-19 20 [place], [facility] Incoming Radiology Results From [facility] - 10/10/2019 3:36 PM EDT Patient Name: CHARLIE NGUYEN ---Diagnostic Radiology--- Exam Date/Time 10/10/2019 13:50:00 EDT Exam CR Chest Portable Ordering Physician CLINTON DELEON Accession Number [id number] CPT4 Codes 62446 () Reason For Exam resp failure/ pneumonia/ [...] ANTHONY Transcribed Date and Time: 10/10/2019 3:36 [place], [place] Patient Name: CHARLIE NGUYEN ---Diagnostic Radiology--- Exam Date/Time 10/10/2019 13:50:00 EDT Exam CR Chest Portable Ordering Physician CLINTON DELEON Accession Number [id number] CPT4 Codes 52607 () Reason For Exam resp failure/ pneumonia/ [...] ANTHONY Transcribed Date and Time: 10/10/2019 3:36 [place], [place] Basic Metabolic Panelon 09-29 Anion gap [Moles/Vol] 6 mmol/L [place], [place] Calcium [Mass/Vol] 7.9 mg/dL Low 8.4 - 10. 4 mg/dL [place] Chloride [Moles/Vol] 105 mmol/L 98 - 10 7 mmol/L [place] CO2 [Moles/Vol] 26 mmol/L 22 - 30 mmol/L [place] Creatinine [Mass/Vol] 0.54 mg/dL 0.52 - 1.25 mg/dL [place], [place] EGFR IF NonAfrican Peruvian >60.0 >60 mL/min [place], [place] Comment on above: Source- MDRD equatio n with creatinine calibration to IDMS(NKDEP) eGFR not recommended for drug dose adjustment GFR/1.73 sq M predicted among blacks MDRD (S/P/Bld) [Vol rate/Area] mL/min/{1.73_m2} >60 mL/min [place] Glucose [Mass/Vol] 122 mg/dL High 70 - 100 mg/dL [place], [place] Interpretation and review of laboratory results Abnormal [place] Potassium [Moles/Vol] 3.5 mmol/L 3.5 - 5.1 mmol/L [place] Sodium [Moles/Vol] 137 mmol/L 135 - 145 mmol/L [place] Urea nitrogen [Mass/Vol] 15 mg/dL 7 - 20 mg/d L [place], [place] Test Performed by [facility], [address] [place] [address] [place], [place] Anion gap [Moles/Vol] 6 mmol/L [place], [place] Calcium [Mass/Vol] 7.8 mg/dL Low 8.4 - 10. 4 mg/dL [place] Chloride [Moles/Vol] 104 mmol/L 98 - 10 7 mmol/L [place] CO2 [Moles/Vol] 27 mmol/L 22 - 30 mmol/L [place] Creatinine [Mass/Vol] 0.54 mg/dL 0.52 - 1.25 mg/dL [place] EGFR IF NonAfrican Peruvian >60.0 >60 mL/min [place], [place] Comment on above: Source- MDRD equatio n with creatinine calibration to IDMS(NKDEP) eGFR not recommended for drug dose adjustment GFR/1.73 sq M predicted among blacks MDRD (S/P/Bld) [Vol rate/Area] mL/min/{1.73_m2} >60 mL/min [place] Glucose [Mass/Vol] 124 mg/dL High 70 - 100 mg/dL [place], [place] Interpretation and review of laboratory results Abnormal [place] Potassium [Moles/Vol] 4.0 mmol/L 3.5 - 5.1 mmol/L [place] Sodium [Moles/Vol] 137 mmol/L 135 - 145 mmol/L [place], [place] Urea nitrogen [Mass/Vol] 14 mg/dL 7 - 20 mg/d L [place], [place] CBC Auto Differentialon 05--2019 Absolute Baso # 0.1 10*3/uL 0 - 0.2 10*3/uL [place], [place] Absolute Neut # 8.9 10*3/uL High 1.8 - 7 10*3/uL [place], [place] Basophils/100 WBC (Bld) 0.6 % 0 - 2 % [place], [place] Eosinophils (Bld) [#/Vol] 0.2 10*3/uL 0 - 0.5 10*3/uL [place], [place] Eosinophils/100 WBC (Bld) 1.9 % 1 - 6 % [place], [place] Erythrocyte distribution width (RBC) [Ratio] 14.8 % High 11.5 - 14.5 % [place], [place] Granulocytes/100 WBC (Bld) 77.4 % 40 - 80 % [place], [place] Hematocrit (Bld) [Volume fraction] 33.0 % Low 35 - 47 % [place], [place] Hemoglobin (Bld) [Mass/Vol] 10.8 g/dL Low 11.7 - 16 g/dL [place], [place] Interpretation and review of laboratory results Abnormal [place], [place] Lymphocytes (Bld) [#/Vol] 1.1 10*3/uL 1 - 4.3 10*3/uL [place], [place] Lymphocytes/100 WBC (Bld) 9.8 % Low 20 - 40 % [place], [place] MCH (RBC) [Entitic mass] 31.5 pg 26 - 34 pg [place], [place] MCHC (RBC) [Mass/Vol] 32.8 % 32 - 36 % [place], [place] MCV (RBC) [Entitic vol] 96.0 fL 79 - 98 fL [place], [place] Monocytes (Bld) [#/Vol] 1.2 10*3/uL High 0 - 0.8 10*3/uL [place], [place] Monocytes/100 WBC (Bld) 10.3 % High 2 - 10 % [facility] [place], [place] Platelet mean volume (Bld) [Entitic vol] 8.4 fL 7.4 - 10.4 fL [facility], [place] Platelets (Bld) [#/Vol] 346 10*3/uL 140 - 440 10*3/uL [facility], [place] RBC (Bld) [#/Vol] 3.44 10*6/uL Low 3.8 - 5.2 10*6/uL [facility], [place] WBC (Bld) [#/Vol] 11.5 10*3/uL High 3.6 - 10.7 10*3/uL [facility], [place] Test Performed by [facility], [address] [place], [place] [id number] [place] [address], JAIDA Culture, Blood 2on 0 Blood Culture, Routine No growth at 5 days. [facility], [place] Test Performed by [email or web address] [facility], [address] [place] [id number] Specimen Source Comment:Blood [place], [place] Hemoglobin and Hematocrit, B loodon 10-09-2019 Hematocrit (Bld) [Volume fraction] 33.5 % Low 35 - 47 % [place] Hemoglobin (Bld) [Mass/Vol] 11.1 g/dL Low 11.7 - 16 g/dL [place], [place] Interpretation and review of laboratory results Abnormal [facility], [place] Test Performed by [facility], [address] [place], [place] [id number] [place] [address] Hematocrit (Bld) [Volume fraction] 33.2 % Low 35 - 47 % [place] Hemoglobin (Bld) [Mass/Vol] 11.0 g/dL Low 11.7 - 16 g/dL [place] Interpretation and review of laboratory results Abnormal [facility], JAIDA Test Performed by [facility], [address] [place], [place] [id number] [place] [address], [place] Magnesiumon 10-09-2019 Magnesium [Mass/Vol] 2.0 mg/dL 1.6 - 2 .3 mg/dL [place] Otheron 10-09-2019 Test Performed by [facility], [address] [place], [place] [id number] [place] [address], [place] POCT Arterialon 10-09-2019 Base Excess, Arterial 2.9 mmol/L -3 - 3 mmol/L [facility], [place] HCO3, Arterial 27.1 mmol/L High 21 - 25 mmol/L [facility], [place] Interpretation and review of laboratory results Abnormal [place] Oxygen saturation in Blood 99.1 % 95 - 100 % [facility], [place] pCO2, Arterial 39.2 mm[Hg] 35 - 45 mm[Hg] [facility], [place] pH, Arterial 7.448 [facility], [place] pO2, Arterial 128.8 mm[Hg] High 80 - 100 mm[Hg] [facility], [place] Sodium [Moles/Vol] 100 mmol/L [place], [place] Comment on above: Performed by CLIA ID : [id number] [place], [place] TCO2, Arterial 28.3 mmol/L High 23 - 27 mmol/L [facility], [place] Test Performed by [facility], [address] [place], [place] [id number] [place] [address] Base Excess, Arterial 2.8 mmol/L -3 - 3 mmol/L [facility], [place] HCO3, Arterial 26.5 mmol/L High 21 - 25 mmol/L [facility], [place] Interpretation and review of laboratory results Abnormal [place], [place] Oxygen saturation in Blood 97.4 % 95 - 100 % [facility], [place] pCO2, Arterial 36.8 mm[Hg] 35 - 45 mm[Hg] [facility], [place] pH, Arterial 7.466 High [place] pO2, Arterial 89.3 mm[Hg] 80 - 100 mm[Hg] [place], [place] Sodium [Moles/Vol] 40 mmol/L [place], [place] Comment on above: Performed by CLIA ID : [id number] [place], [place] TCO2, Arterial 27.7 mmol/L High 23 - 27 mmol/L [facility], [place] Test Performed by [facility], [address] [place], [place] [address] [place], [place] Phosphoruson 10-09-2019 Phosphate [Mass/Vol] 4.3 mg/dL 2.5 - 4 .5 mg/dL [place] XR CHEST PORTABLEon 10-09-19 [place], [facility] Incoming Radiology Results From [facility] - 10/09/2019 3:56 PM EDT Patient Name: CHARLEI NGUYEN ---Diagnostic Radiology--- Exam Date/Time 10/09/2019 14:12:00 EDT Exam CR Chest Portable Ordering Physician DES ROMERO Accession Number [id number] CPT4 Codes 61614 () Reason For Exam intubation Report Portable [...] M Transcribed Date and Time: 10/09/2019 3:56 [place], [place] Patient Name: CHARLIE NGUYEN ---Diagnostic Radiology--- Exam Date/Time 10/09/2019 14:12:00 EDT Exam CR Chest Portable Ordering Physician DES ROMERO Accession Number [id number] CPT4 Codes 50399 () Reason For Exam intubation Report Portable [...] M Transcribed Date and Time: 10/09/2019 3:56 [place], [place] Basic Metabolic Panelon 05-0 Anion gap [Moles/Vol] 8 mmol/L [place], [place] Calcium [Mass/Vol] 7.7 mg/dL Low 8.4 - 10. 4 mg/dL [place], [place] Chloride [Moles/Vol] 103 mmol/L 98 - 10 7 mmol/L [place] CO2 [Moles/Vol] 25 mmol/L 22 - 30 mmol/L [place] Creatinine [Mass/Vol] 0.54 mg/dL 0.52 - 1.25 mg/dL [place] EGFR IF NonAfrican Peruvian >60.0 >60 mL/min [place] Comment on above: Source- MDRD equatio n with creatinine calibration to IDMS(NKDEP) eGFR not recommended for drug dose adjustment GFR/1.73 sq M predicted among blacks MDRD (S/P/Bld) [Vol rate/Area] mL/min/{1.73_m2} >60 mL/min [place] Glucose [Mass/Vol] 103 mg/dL High 70 - 100 mg/dL [place] Interpretation and review of laboratory results Abnormal [place] Potassium [Moles/Vol] 3.2 mmol/L Low 3.5 - 5.1 mmol/L [place] Sodium [Moles/Vol] 136 mmol/L 135 - 145 mmol/L [facility], [place] Urea nitrogen [Mass/Vol] 14 mg/dL 7 - 20 mg/d L [place] Test Performed by [employer] [address], [place], [place] [address] [place] Anion gap [Moles/Vol] 5 mmol/L [facility], [place] Calcium [Mass/Vol] 7.5 mg/dL Low 8.4 - 10. 4 mg/dL [place] Chloride [Moles/Vol] 103 mmol/L 98 - 10 7 mmol/L [place] CO2 [Moles/Vol] 26 mmol/L 22 - 30 mmol/L [place] Creatinine [Mass/Vol] 0.53 mg/dL 0.52 - 1.25 mg/dL [place] EGFR IF NonAfrican Peruvian >60.0 >60 mL/min [place] Comment on above: Source- MDRD equatio n with creatinine calibration to IDMS(NKDEP) eGFR not recommended for drug dose adjustment GFR/1.73 sq M predicted among blacks MDRD (S/P/Bld) [Vol rate/Area] mL/min/{1.73_m2} >60 mL/min [place] Glucose [Mass/Vol] 125 mg/dL High 70 - 100 mg/dL [place], [place] Interpretation and review of laboratory results Abnormal [place] Potassium [Moles/Vol] 3.5 mmol/L 3.5 - 5.1 mmol/L [place] Sodium [Moles/Vol] 134 mmol/L Low 135 - 145 mmol/L [place] Urea nitrogen [Mass/Vol] 15 mg/dL 7 - 20 mg/d L [place], [place] Test Performed by [employer] [address], [place], [place] [address] [place], [place] Anion gap [Moles/Vol] 8 mmol/L [facility], [place] Calcium [Mass/Vol] 7.5 mg/dL Low 8.4 - 10. 4 mg/dL [place] Chloride [Moles/Vol] 102 mmol/L 98 - 10 7 mmol/L [place] CO2 [Moles/Vol] 26 mmol/L 22 - 30 mmol/L [place], [place] Creatinine [Mass/Vol] 0.5 mg/dL Low 0.52 - 1.25 mg/dL [place], [place] EGFR IF NonAfrican Peruvian >60.0 >60 mL/min [place], [place] Comment on above: Source- MDRD equatio n with creatinine calibration to IDMS(NKDEP) eGFR not recommended for drug dose adjustment GFR/1.73 sq M predicted among blacks MDRD (S/P/Bld) [Vol rate/Area] mL/min/{1.73_m2} >60 mL/min [place] Glucose [Mass/Vol] 113 mg/dL High 70 - 100 mg/dL [place], [place] Interpretation and review of laboratory results Abnormal [place] Potassium [Moles/Vol] 3.2 mmol/L Low 3.5 - 5.1 mmol/L [place] Sodium [Moles/Vol] 135 mmol/L 135 - 145 mmol/L [place] Urea nitrogen [Mass/Vol] 16 mg/dL 7 - 20 mg/d L [place], [place] Test Performed by [facility], [address] [place], [place] [address] [place], [place] CBC Auto Differentialon 05-0 Absolute Baso # 0.1 10*3/uL 0 - 0.2 10*3/uL [place], [place] Absolute Neut # 8.4 10*3/uL High 1.8 - 7 10*3/uL [place], [place] Basophils/100 WBC (Bld) 0.7 % 0 - 2 % [place] Eosinophils (Bld) [#/Vol] 0.2 10*3/uL 0 - 0.5 10*3/uL [place], [place] Eosinophils/100 WBC (Bld) 1.8 % 1 - 6 % [place] Erythrocyte distribution width (RBC) [Ratio] 15.0 % High 11.5 - 14.5 % [place] Granulocytes/100 WBC (Bld) 75.2 % 40 - 80 % [place] Hematocrit (Bld) [Volume fraction] 27.1 % Low 35 - 47 % [place], [place] Hemoglobin (Bld) [Mass/Vol] 8.8 g/dL Low 11.7 - 16 g/dL [place], [place] Interpretation and review of laboratory results Abnormal [place] Lymphocytes (Bld) [#/Vol] 1.2 10*3/uL 1 - 4.3 10*3/uL [place], [place] Lymphocytes/100 WBC (Bld) 11.1 % Low 20 - 40 % [place] MCH (RBC) [Entitic mass] 31.6 pg 26 - 34 pg [place] MCHC (RBC) [Mass/Vol] 32.5 % 32 - 36 % [place], [place] MCV (RBC) [Entitic vol] 97.3 fL 79 - 98 fL [place], [place] Monocytes (Bld) [#/Vol] 1.2 10*3/uL High 0 - 0.8 10*3/uL [place], [place] Monocytes/100 WBC (Bld) 11.2 % High 2 - 10 % [place], [place] Platelet mean volume (Bld) [Entitic vol] 8.7 fL 7.4 - 10.4 fL [place], [place] Platelets (Bld) [#/Vol] 228 10*3/uL 140 - 440 10*3/uL [place] RBC (Bld) [#/Vol] 2.79 10*6/uL Low 3.8 - 5.2 10*6/uL [place] WBC (Bld) [#/Vol] 11.1 10*3/uL High 3.6 - 10.7 10*3/uL [place] Test Performed by [facility], [address], [place], [place] [address] [place], [place] Culture, Blood 1on 05-09-202 0 Blood Culture, Routine No growth at 5 days. [place], [place] Test Performed by [employer] [address] Specimen Source Comment:Blood [facility] JAIDA Culture, Respiratoryon 10-07 Interpretation and review of laboratory results Abnormal [place], [place] Respiratory Culture Corynebacterium striatum Abnormal [place] Respiratory Culture Many Possible identification For identification and/or sensitivity, refer to culture collected on: 10/05/2019 at 0837, ([id number] ). [facility] [place] Respiratory Culture Staphylococcus aureus Abnormal [place], [place] Respiratory Culture Moderate For identification and/or sensitivity, refer to culture collected on: 10/05/2019 at 0837 ([id number]) [facility] [place] Test Performed by [address] [address] Specimen Source Comment:BAL- Right [place], [place] Interpretation and review of laboratory results Abnormal [facility] JAIDA Respiratory Culture Many Possible identification [place], [place] Respiratory Culture Corynebacterium striatum Abnormal [place], [place] Respiratory Culture Many Negative for PBP2a (MSSA). [facility] JAIDA Respiratory Culture Staphylococcus aureus Abnormal [facility] [place] Respiratory Culture Rare normal respiratory naomi. Abnormal [facility] [place] Test Performed by [address] [address] Specimen Source Comment:Sputum [place] ECHO Complete 2D W Doppler W Coloron 10-08-2019 Left ventricular Ejection fraction 61 [place] LVEF MODALITY ECHO [place], [facility] Incoming Cardiology [facility] - 10/08/2019 1:21 PM EDT TRANSTHORACIC ECHOCARDIOGRAM PATIENT: Charlie Nguyen STUDY DATE: 10/08/2019 : 1955 AGE: 64 HT/WT: 175.3 cm (69 122.5 kg in) (269.4 lb) GENDER: F BP: 116 / 65 LOCATION: [facility] PATIENT Inpatient [facility] STATUS: *ORDERING PHYSICIAN: * Rajendra Kim *READING PHYSICIAN: * [place], *BARREL HEADER: * MD LIZETTE Hobbs -------- INDICATIONS: Hypoxia. [...] Edmar Atkinson MD 10/08/2019 13:21 Prior Signatures: [employer] [place] TRANSTHORACIC ECHOCARDIOGRAM PATIENT: Charlie Nguyen STUDY DATE: 10/08/2019 : 1955 AGE: 64 HT/WT: 175.3 cm (69 122.5 kg in) (269.4 lb) GENDER: F BP: 116 / 65 LOCATION: [facility] PATIENT Inpatient [facility] STATUS: *ORDERING PHYSICIAN: * Rajendra Kim *READING PHYSICIAN: * [place], *BARREL HEADER: * Brandi Hyatt MD [facility] -------- INDICATIONS: Hypoxia. -------- CONCLUSIONS SUMMARY: 1. [...] Edmar Atkinson MD 10/08/2019 13:21 Prior Signatures: [facility] EKG 12 Leadon 10-08-2019 [facility] Test Date: 2019-10-07 Pat Name: Charlie Nguyen Department: [facility] Room: 232 Gender: F [employer] Maintainer: GISELLE : 1955 Requested By: NICA SAL Order Number: [id number] Reading : [place] Lantigua Measurements Intervals Tanana Rate: 72 P: 35 HI: 180 QRS: 2 QRSD: 112 T: 17 QT: 420 QTc: 460 Interpretive Statements SINUS RHYTHM Compared to ECG 10/07/2019 07:55:13 No significant changes Electronically Signed On 10-08-2019 13:12:36 EDT by [place] L[place] [facility], [place], [facility] Incoming Cardiology Results From [facility] - 10/08/2019 1:13 PM EDT [facility] Test Date: 2019-10-07 Pat Name: Charlie Nguyen Department: LOLITA Room: 232 Gender: F [employer] Maintainer: GISELLE : 1955 Requested By: NICA SAL Order Number: [id number] Reading MD: Denver Lantigua Measurements Intervals [place] Rate: 72 P: 35 HI: 180 QRS: 2 QRSD: 112 T: 17 QT: 420 QTc: 460 Interpretive Statements SINUS RHYTHM Compared to ECG 10/07/2019 07:55:13 No significant changes Electronically Signed On 10-08-2019 13:12:36 EDT by [place] L[place], [place] Hemoglobin and Hematocrit, B loodon 10-08-2019 Hematocrit (Bld) [Volume fraction] 34.3 % Low 35 - 47 % [facility] [place] Hemoglobin (Bld) [Mass/Vol] 11.4 g/dL Low 11.7 - 16 g/dL [place] Interpretation and review of laboratory results Abnormal [facility] [employer] Test Performed by [facility], [address] [place] Hematocrit (Bld) [Volume fraction] 31.9 % Low 35 - 47 % [facility] Hemoglobin (Bld) [Mass/Vol] 10.6 g/dL Low 11.7 - 16 g/dL [place] Interpretation and review of laboratory results Abnormal [facility] [employer] [facility] [employer] Test Performed by [facility], [address] [employer] [facility] [employer] Magnesiumon 10-08-2019 Interpretation and review of laboratory results Abnormal [facility] [employer] [facility] [employer] Magnesium [Mass/Vol] 1.3 mg/dL Low 1.6 - 2 .3 mg/dL [facility] [employer] [facility] [employer] Otheron 10-08-2019 Test Performed by [facility], [address] [employer] [place], [place] POCT Arterialon 10-08-2019 Base Excess, Arterial 0.8 mmol/L -3 - 3 mmol/L [facility] [employer] HCO3, Arterial 24.2 mmol/L 21 - 25 mmol/L [place] Interpretation and review of laboratory results Abnormal [place] Oxygen saturation in Blood 93.9 % Low 95 - 100 % [place] pCO2, Arterial 33.7 mm[Hg] Low 35 - 45 mm[Hg] [place], [place] pH, Arterial 7.464 High [place] pO2, Arterial 65.5 mm[Hg] Low 80 - 100 mm[Hg] [place] Sodium [Moles/Vol] 50 mmol/L [place] Comment on above: Performed by CLIA ID : [id number] [place], [place] TCO2, Arterial 25.3 mmol/L 23 - 27 mmol/L [place] Test Performed by [facility], [facility] [address] [place], [place] [address] [place], [place] Phosphoruson 10-08-2019 Phosphate [Mass/Vol] 2.8 mg/dL 2.5 - 4 .5 mg/dL [place] XR CHEST PORTABLEon 10-08-19 20 Patient Name: CHARLIE NGUYEN ---Diagnostic Radiology--- Exam Date/Time 10/08/2019 10:52:00 EDT Exam CR Chest Portable Ordering Physician DES ROMERO Accession Number [id number] CPT4 Codes 19268 () Reason For Exam central line placement [...] JEFFREY Transcribed Date and Time: 10/08/2019 11:13 [place], [place], [facility] Incoming Radiology Results From [facility] - 10/08/2019 11:13 AM EDT Patient Name: CHARLIE NGUYEN ---Diagnostic Radiology--- Exam Date/Time 10/08/2019 10:52:00 EDT Exam CR Chest Portable Ordering Physician DES ROMERO Accession Number [id number] CPT4 Codes 86888 () Reason For Exam central line placement [...] JEFFREY Transcribed Date and Time: 10/08/2019 11:13 [place], [place] Basic Metabolic Panelon Anion gap [Moles/Vol] 6 mmol/L [place], [place] Calcium [Mass/Vol] 6.7 mg/dL Low 8.4 - 10. 4 mg/dL [place] Chloride [Moles/Vol] 108 mmol/L High 98 - 10 7 mmol/L [place] CO2 [Moles/Vol] 22 mmol/L 22 - 30 mmol/L [place] Creatinine [Mass/Vol] 0.42 mg/dL Low 0.52 - 1.25 mg/dL [place] EGFR IF NonAfrican Peruvian >60.0 >60 mL/min [place] Comment on above: Source- MDRD equatio n with creatinine calibration to IDMS(NKDEP) eGFR not recommended for drug dose adjustment GFR/1.73 sq M predicted among blacks MDRD (S/P/Bld) [Vol rate/Area] mL/min/{1.73_m2} >60 mL/min [place] Glucose [Mass/Vol] 103 mg/dL High 70 - 100 mg/dL [place] Interpretation and review of laboratory results Abnormal [place] Potassium [Moles/Vol] 3.3 mmol/L Low 3.5 - 5.1 mmol/L [place] Sodium [Moles/Vol] 136 mmol/L 135 - 145 mmol/L [place] Urea nitrogen [Mass/Vol] 17 mg/dL 7 - 20 mg/d L [place] Test Performed by [facility], [address] [place] [address] [place] Anion gap [Moles/Vol] 6 mmol/L [place] Calcium [Mass/Vol] 7.5 mg/dL Low 8.4 - 10. 4 mg/dL [place] Chloride [Moles/Vol] 106 mmol/L 98 - 10 7 mmol/L [place] CO2 [Moles/Vol] 25 mmol/L 22 - 30 mmol/L [place] Creatinine [Mass/Vol] 0.55 mg/dL 0.52 - 1.25 mg/dL [place] EGFR IF NonAfrican [place]uvian >60.0 >60 mL/min [place] Comment on above: Source- MDRD equatio n with creatinine calibration to IDMS(NKDEP) eGFR not recommended for drug dose adjustment GFR/1.73 sq M predicted among blacks MDRD (S/P/Bld) [Vol rate/Area] mL/min/{1.73_m2} >60 mL/min [place] Glucose [Mass/Vol] 114 mg/dL High 70 - 100 mg/dL [place] Interpretation and review of laboratory results Abnormal [place] Potassium [Moles/Vol] 3.4 mmol/L Low 3.5 - 5.1 mmol/L [place] Sodium [Moles/Vol] 138 mmol/L 135 - 145 mmol/L [place] Urea nitrogen [Mass/Vol] 17 mg/dL 7 - 20 mg/d L [place] CBC Auto Differentialon 05-0 8-2019 Absolute Baso # 0.0 10*3/uL 0 - 0.2 10*3/uL [place] Absolute Neut # 8.6 10*3/uL High 1.8 - 7 10*3/uL [place] Basophils/100 WBC (Bld) 0.4 % 0 - 2 % [place] Eosinophils (Bld) [#/Vol] 0.2 10*3/uL 0 - 0.5 10*3/uL [place] Eosinophils/100 WBC (Bld) 1.7 % 1 - 6 % [place] Erythrocyte distribution width (RBC) [Ratio] 15.2 % High 11.5 - 14.5 % [place] Granulocytes/100 WBC (Bld) 78.3 % 40 - 80 % [place] Hematocrit (Bld) [Volume fraction] 34.1 % Low 35 - 47 % [place] Hemoglobin (Bld) [Mass/Vol] 11.3 g/dL Low 11.7 - 16 g/dL [place] Interpretation and review of laboratory results Abnormal [place] Lymphocytes (Bld) [#/Vol] 1.3 10*3/uL 1 - 4.3 10*3/uL [place] Lymphocytes/100 WBC (Bld) 11.8 % Low 20 - 40 % [place] MCH (RBC) [Entitic mass] 32.2 pg 26 - 34 pg [place] MCHC (RBC) [Mass/Vol] 33.2 % 32 - 36 % [facility] [place] MCV (RBC) [Entitic vol] 96.9 fL 79 - 98 fL [place] Monocytes (Bld) [#/Vol] 0.9 10*3/uL High 0 - 0.8 10*3/uL [place] Monocytes/100 WBC (Bld) 7.8 % 2 - 10 % [place] Platelet mean volume (Bld) [Entitic vol] 8.8 fL 7.4 - 10.4 fL [place] Platelets (Bld) [#/Vol] 204 10*3/uL 140 - 440 10*3/uL [place] RBC (Bld) [#/Vol] 3.52 10*6/uL Low 3.8 - 5.2 10*6/uL [place] WBC (Bld) [#/Vol] 11.0 10*3/uL High 3.6 - 10.7 10*3/uL [place] Test Performed by [facility], [address] [place] [id number] [place] [address] EKG 12 [place] 10-07-2019 [facility] Test Date: 2019-10-06 Pat Name: Charlie Nguyen Department: [facility] Room: 232 Gender: F [employer] Maintainer: VANESSA : 1955 Requested By: NICA SAL Order Number: [id number] Reading MD: Kurtis Urbina Measurements Intervals [place] Rate: 73 P: 35 HI: 168 QRS: 17 QRSD: 104 T: 42 QT: 400 QTc: 441 Interpretive Statements SINUS RHYTHM mildly widened QRS complex VENTRICULAR PREMATURE COMPLEX Electronically Signed On 10-07-2019 13:02:46 EDT by Kurtis Urbina [place], [place], [facility] Incoming Cardiology Results From [facility] - 10/07/2019 1:03 PM EDT [facility] Test Date: 2019-10-06 Pat Name: Charlie Nguyen Department: [facility] Room: 232 Gender: F [employer] Maintainer: RE : 1955 Requested By: NICA BOTSCH Order Number: [id number] Reading MD: Kurtis Urbina Measurements Intervals [place] Rate: 73 P: 35 HI: 168 QRS: 17 QRSD: 104 T: 42 QT: 400 QTc: 441 Interpretive Statements SINUS RHYTHM mildly widened QRS complex VENTRICULAR PREMATURE COMPLEX Electronically Signed On 10-07-2019 13:02:46 EDT by [facility]is [facility], [facility] Incoming Cardiology Results From [facility] - 10/07/2019 12:57 PM EDT [facility] Test Date: 2019-10-05 Pat Name: Charlie Nguyen Department: 03 Room: 232 Gender: F [employer] Maintainer: GISELLE : 1955 Requested By: NICA [employer] Order Number: [id number] Reading MD: Kurtis Urbina Measurements Intervals [place] Rate: 70 P: 50 HI: 164 QRS: 29 QRSD: 106 T: 44 QT: 388 QTc: 419 Interpretive Statements SINUS RHYTHM VENTRICULAR TRIGEMINY BORDERLINE INTRAVENTRICULAR CONDUCTION DELAY Electronically Signed On 10-07-2019 12:56:39 EDT by Kurtis Urbina [facility] Test Date: 2019-10-05 Pat Name: Charlie Patrick Department: 03 Room: 232 Gender: F [employer] Maintainer: GISELLE : 1955 Requested By: NICA [employer] Order Number: [id number] Reading MD: Kurtis Urbina Measurements Intervals [place] Rate: 70 P: 50 HI: 164 QRS: 29 QRSD: 106 T: 44 QT: 388 QTc: 419 Interpretive Statements SINUS RHYTHM VENTRICULAR TRIGEMINY BORDERLINE INTRAVENTRICULAR CONDUCTION DELAY Electronically Signed On 10-07-2019 12:56:39 EDT by Kurtis WardPico-Tesla Magnetic Therapiesja[facility], [facility] Incoming Cardiology Results From [facility] - 10/07/2019 12:37 PM EDT [facility] Test Date: 2019-10-05 Pat Name: Charlie Patrick Department: 2[facility] Room: 232 Gender: F [employer] Maintainer: VANESSA : 1955 Requested By: NICA [employer] Order Number: [id number] Reading MD: Kurtis Urbina Measurements Intervals [place] Rate: 115 P: 41 HI: 168 QRS: 4 QRSD: 104 T: 56 QT: 320 QTc: 443 Interpretive Statements SINUS TACHYCARDIA nonspecific intraventricular conduction delay BORDERLINE R WAVE PROGRESSION, ANTERIOR LEADS Electronically Signed On 10-07-2019 12:36:21 EDT by Kurtis Urbina [facility] Test Date: 2019-10-05 Pat Name: Charlie Patrick Department: [facility] Room: 232 Gender: F [employer] Maintainer: VANESSA : 1955 Requested By: NICA [employer] Order Number: [id number] Reading MD: Kurtis Urbina Measurements Intervals [place] Rate: 115 P: 41 HI: 168 QRS: 4 QRSD: 104 T: 56 QT: 320 QTc: 443 Interpretive Statements SINUS TACHYCARDIA nonspecific intraventricular conduction delay BORDERLINE R WAVE PROGRESSION, ANTERIOR LEADS Electronically Signed On 10-07-2019 12:36:21 EDT by Kurtis Urbina [facility] Test Date: 2019-10-06 Pat Name: Charlie Nguyen Department: [facility] Room: 232 Gender: F [employer] Maintainer: GISELLE : 1955 Requested By: NICA [employer] Order Number: [id number] Reading MD: Tara Mari Measurements Intervals [place] Rate: 68 P: 32 HI: 180 QRS: 0 QRSD: 104 T: 16 QT: 432 QTc: 460 Interpretive Statements SINUS RHYTHM Compared to ECG 10/06/2019 07:54:36 Ventricular premature complex(es) no longer present Electronically Signed On 10-07-2019 12:16:42 EDT by Tara [facility] Incoming Cardiology Results From [facility] - 10/07/2019 12:17 PM EDT [facility] Test Date: 2019-10-06 Pat Name: Charlie Patrick Department: [facility] Room: 232 Gender: F [employer] Maintainer: GISELLE : 1955 Requested By: NICA [employer] Order Number: [id number] Reading MD: Tara Mari Measurements Intervals [place] Rate: 68 P: 32 HI: 180 QRS: 0 QRSD: 104 T: 16 QT: 432 QTc: 460 Interpretive Statements SINUS RHYTHM Compared to ECG 10/06/2019 07:54:36 Ventricular premature complex(es) no longer present Electronically Signed On 10-07-2019 12:16:42 EDT by [facility] Incoming Cardiology Results [facility] - 10/07/2019 12:13 PM EDT [facility] Test Date: 2019-10-07 Pat Name: Charlie Nguyen Department: [facility] Room: 232 Gender: F [employer] Maintainer: VANESSA : 1955 Requested By: NICA SAL Order Number: [id number] Reading MD: Tara Mari Measurements Intervals [place] Rate: 66 P: 57 HI: 176 QRS: 6 QRSD: 108 T: 18 QT: 444 QTc: 466 Interpretive Statements SINUS RHYTHM BORDERLINE INTRAVENTRICULAR CONDUCTION DELAY Compared to ECG 10/06/2019 20:43:01 No significant changes Electronically Signed On 10-07-2019 12:12:42 EDT by [facility] Test Date: 2019-10-07 Pat Name: Charlie Nguyen Department: [facility] Room: 232 Gender: F [employer] Maintainer: VANESSA : 1955 Requested By: NICA SAL Order Number: [id number] Reading MD: Tara Mari Measurements Intervals [place] Rate: 66 P: 57 HI: 176 QRS: 6 QRSD: 108 T: 18 QT: 444 QTc: 466 Interpretive Statements SINUS RHYTHM BORDERLINE INTRAVENTRICULAR CONDUCTION DELAY Compared to ECG 10/06/2019 20:43:01 No significant changes Electronically Signed On 10-07-2019 12:12:42 EDT by [facility] Test Date: 2019-10-03 Pat Name: Charlie Patrick Department: Room: 232 Gender: F [employer] Maintainer: GISELLE : 1955 Requested By: RAJENDRA KIM Order Number: [id number] Reading MD: Kurtis Hi Measurements Intervals [place] Rate: 103 P: 7 HI: 160 QRS: -7 QRSD: 108 T: 222 QT: 364 QTc: 477 Interpretive Statements SINUS TACHYCARDIA BORDERLINE INTRAVENTRICULAR CONDUCTION DELAY NONSPECIFIC T ABNORMALITIES, INFERIOR LEADS Compared to ECG 10/03/2019 07:51:05 T-wave abnormality now present Sinus rhythm no longer present Left ventricular hypertrophy no longer present Electronically Signed On 10-07-2019 11:54:11 EDT by Kurtis Hi [place], [facility] Incoming Cardiology Results From [facility] - 10/07/2019 11:55 AM EDT [email or web address] [facility] Test Date: 2019-10-03 Pat Name: Charlie Nguyen Department: 3 Room: [facility] Gender: F [employer] Maintainer: GISELLE : 1955 Requested By: RAJENDRA KIM Order Number: [id number] Reading MD: Kurtis Hi Measurements Intervals [place] Rate: 103 P: 7 HI: 160 QRS: -7 QRSD: 108 T: 222 QT: 364 QTc: 477 Interpretive Statements SINUS TACHYCARDIA BORDERLINE INTRAVENTRICULAR CONDUCTION DELAY NONSPECIFIC T ABNORMALITIES, INFERIOR LEADS Compared to ECG 10/03/2019 07:51:05 T-wave abnormality now present Sinus rhythm no longer present Left ventricular hypertrophy no longer present Electronically Signed On 10-07-2019 11:54:11 EDT by Kurtis Hi [place] Magnesiumon 10-07-2019 Magnesium [Mass/Vol] 1.7 mg/dL 1.6 - 2 .3 mg/dL [place] Otheron 10-07-2019 Test Performed by [facility], [address] [place], [place] [id number] [place] [address] POCT Arterialon 10-07-2019 Base Excess, Arterial 0.1 mmol/L -3 - 3 mmol/L [place] HCO3, Arterial 23.3 mmol/L 21 - 25 mmol/L [place] Interpretation and review of laboratory results Abnormal [place] Oxygen saturation in Blood 95.1 % 95 - 100 % [place] pCO2, Arterial 32.6 mm[Hg] Low 35 - 45 mm[Hg] [place] pH, Arterial 7.462 High [place] pO2, Arterial 70.7 mm[Hg] Low 80 - 100 mm[Hg] [place] Sodium [Moles/Vol] 50 mmol/L [place], [place] Comment on above: Performed by CLIA ID : [id number] [place], [place] TCO2, Arterial 24.3 mmol/L 23 - 27 mmol/L [place] Test Performed by [facility], [address], [place], [place] [address] [place] Phosphoruson 10-07-2019 Phosphate [Mass/Vol] 3.0 mg/dL 2.5 - 4 .5 mg/dL [place], [place] Add On Lab Teston 10-06-2019 Sodium [Moles/Vol] Accepted [place] Comment on above: Specimen available & acceptable for analysis. Test Performed by [facility], [address], [place], [place] [address] [place], [place] Basic Metabolic Panelon Anion gap [Moles/Vol] 6 mmol/L [place] Calcium [Mass/Vol] 7.5 mg/dL Low 8.4 - 10. 4 mg/dL [place] Chloride [Moles/Vol] 105 mmol/L 98 - 10 7 mmol/L [place] CO2 [Moles/Vol] 26 mmol/L 22 - 30 mmol/L [place] Creatinine [Mass/Vol] 0.58 mg/dL 0.52 - 1.25 mg/dL [place] EGFR IF NonAfrican [place]uvian >60.0 >60 mL/min [place] Comment on above: Source- MDRD equatio n with creatinine calibration to IDMS(NKDEP) eGFR not recommended for drug dose adjustment GFR/1.73 sq M predicted among blacks MDRD (S/P/Bld) [Vol rate/Area] mL/min/{1.73_m2} >60 mL/min [place] Glucose [Mass/Vol] 85 mg/dL 70 - 100 mg/dL [place] Interpretation and review of laboratory results Abnormal [place] Potassium [Moles/Vol] 3.8 mmol/L 3.5 - 5.1 mmol/L [place] Sodium [Moles/Vol] 137 mmol/L 135 - 145 mmol/L [place] Urea nitrogen [Mass/Vol] 17 mg/dL 7 - 20 mg/d L [place] Test Performed by [facility], [address] [place], [place] [id number] [place] [address] Anion gap [Moles/Vol] 7 mmol/L [place] Calcium [Mass/Vol] 7.7 mg/dL Low 8.4 - 10. 4 mg/dL [place] Chloride [Moles/Vol] 104 mmol/L 98 - 10 7 mmol/L [place] CO2 [Moles/Vol] 26 mmol/L 22 - 30 mmol/L [place] Creatinine [Mass/Vol] 0.55 mg/dL 0.52 - 1.25 mg/dL [place] EGFR IF NonAfrican [place]uvian >60.0 >60 mL/min [place] Comment on above: Source- MDRD equatio n with creatinine calibration to IDMS(NKDEP) eGFR not recommended for drug dose adjustment GFR/1.73 sq M predicted among blacks MDRD (S/P/Bld) [Vol rate/Area] mL/min/{1.73_m2} >60 mL/min [place] Glucose [Mass/Vol] 89 mg/dL 70 - 100 mg/dL [place] Interpretation and review of laboratory results Abnormal [place] Potassium [Moles/Vol] 4.0 mmol/L 3.5 - 5.1 mmol/L [place] Sodium [Moles/Vol] 137 mmol/L 135 - 145 mmol/L [place] Urea nitrogen [Mass/Vol] 18 mg/dL 7 - 20 mg/d L [place] Test Performed by [facility], [address] [place], [place], [place] [id number] [place] [address] CBC Auto Differentialon 05-0 Erythrocyte distribution width (RBC) [Ratio] 15.3 % High 11.5 - 14.5 % [place] Hematocrit (Bld) [Volume fraction] 34.5 % Low 35 - 47 % [place] Hemoglobin (Bld) [Mass/Vol] 11.2 g/dL Low 11.7 - 16 g/dL [place] Interpretation and review of laboratory results Abnormal [place] MCH (RBC) [Entitic mass] 31.7 pg 26 - 34 pg [place] MCHC (RBC) [Mass/Vol] 32.4 % 32 - 36 % [place] MCV (RBC) [Entitic vol] 97.8 fL 79 - 98 fL [place], [place] Platelet mean volume (Bld) [Entitic vol] 8.9 fL 7.4 - 10.4 fL [place], [place] Platelets (Bld) [#/Vol] 146 10*3/uL 140 - 440 10*3/uL [place] RBC (Bld) [#/Vol] 3.53 10*6/uL Low 3.8 - 5.2 10*6/uL [place] WBC (Bld) [#/Vol] 11.6 10*3/uL High 3.6 - 10.7 10*3/uL [place] Test Performed by [facility], [address] [place], [place] [address] [place] Gram Stainon 10-06-2019 INR Coag (Bld) [Relative time] Many polymorphonuclear cells/lpf. Rare epithelial cells/lpf. Rare gram positive cocci. [place] Test Performed by [facility], [address] [place] [id number] Specimen Source Comment:BAL- Right [place] Magnesiumon 10-06-2019 Magnesium [Mass/Vol] 1.8 mg/dL 1.6 - 2 .3 mg/dL [place] Test Performed by [facility], [address] [place], [place], [place] [address] [place], [place] Manual Differentialon 2019 Absolute Baso # 0.0 10*3/uL 0 - 0.2 10*3/uL [place] Absolute Eos # 0.2 10*3/uL 0 - 0.5 10*3/uL [place] Absolute Lymph # 0.9 10*3/uL Low 1.1 - 4.5 10*3/uL [place] Absolute [place] # 0.3 10*3/uL 0.2 - 1.1 10*3/uL [place] Absolute Neut # 10.1 10*3/uL High 2.2 - 8.2 10*3/uL [place] Anisocytosis Ql (Bld) Slight [place], [place] Bands 0 % 0 - 3 % [place] Basophils 0 % 0 - 2 % [place] Eosinophils 2 % 1 - 6 % [place] Interpretation and review of laboratory results Abnormal [place] Lymphocytes 8 % Low 20 - 40 % [place] Macrocytosis Slight [place] Monocytes 3 % 2 - 10 % [place] RBC morphology finding Nom (Bld) ABNORMAL [place] Seg Neutrophils 87 % High 40 - 80 % [place] TOTAL CELLS COUNTED 100 [place] Test Performed by [facility], [address], [place], [place] [address] [place] POCT Arterialon 10-06-2019 Base Excess, Arterial 0.3 mmol/L -3 - 3 mmol/L [place] HCO3, Arterial 23.1 mmol/L 21 - 25 mmol/L [place] Interpretation and review of laboratory results Abnormal [place] Oxygen saturation in Blood 94.8 % Low 95 - 100 % [place] pCO2, Arterial 30.9 mm[Hg] Low 35 - 45 mm[Hg] [place] pH, Arterial 7.482 High [place] pO2, Arterial 67.6 mm[Hg] Low 80 - 100 mm[Hg] [place] Sodium [Moles/Vol] 50 mmol/L [place] Comment on above: Performed by CLIA ID : [id number] [place] TCO2, Arterial 24.1 mmol/L 23 - 27 mmol/L [place] Test Performed by [facility], [address], [place], [place] [address] [place] Base Excess, Arterial 3.2 mmol/L High -3 - 3 mmol/L [place] HCO3, Arterial 27.1 mmol/L High 21 - 25 mmol/L [place] Interpretation and review of laboratory results Abnormal [place] Oxygen saturation in Blood 92.6 % Low 95 - 100 % [place] pCO2, Arterial 38.1 mm[Hg] 35 - 45 mm[Hg] [place] pH, Arterial 7.460 High [place] pO2, Arterial 62.0 mm[Hg] Low 80 - 100 mm[Hg] [place] Sodium [Moles/Vol] 50 mmol/L [place] Comment on above: Performed by CLIA ID : [id number] [place], [place] TCO2, Arterial 28.3 mmol/L High 23 - 27 mmol/L [place] Test Performed by [facility], [address], [place], [place] [address] [place] RENAL + LIVER PROFon 020 Albumin [Mass/Vol] 2.8 g/dL Low 3.5 - 5 g/dL [place] ALP [Catalytic activity/Vol] 132 U/L High 38 - 126 U/L [place] ALT [Catalytic activity/Vol] 14 U/L 0 - 34 U/L [place] Comment on above: The ALT test is perf ormed by an updated assay method. Please note that the reference intervals have been changed and are now sex specific. Anion gap [Moles/Vol] 6 mmol/L [place], [place] AST [Catalytic activity/Vol] 26 U/L 15 - 46 U/L [place] Bilirubin Ql (U) 1.0 mg/dL 0.2 - 1.3 mg/dL [place] Bilirubin.direct [Mass/Vol] 0.0 mg/dL 0 - 0.3 mg/dL [place] Calcium [Mass/Vol] 7.8 mg/dL Low 8.4 - 10. 4 mg/dL [place] Chloride [Moles/Vol] 103 mmol/L 98 - 10 7 mmol/L [place] CO2 [Moles/Vol] 27 mmol/L 22 - 30 mmol/L [place] Creatinine [Mass/Vol] 0.56 mg/dL 0.52 - 1.25 mg/dL [place] EGFR IF NonAfrican Peruvian >60.0 >60 mL/min [place] Comment on above: Source- MDRD equatio n with creatinine calibration to IDMS(NKDEP) eGFR not recommended for drug dose adjustment GFR/1.73 sq M predicted among blacks MDRD (S/P/Bld) [Vol rate/Area] mL/min/{1.73_m2} >60 mL/min [place] Glucose [Mass/Vol] 99 mg/dL 70 - 100 mg/dL [place] Interpretation and review of laboratory results Abnormal [place] Phosphate [Mass/Vol] 2.8 mg/dL 2.5 - 4 .5 mg/dL [place] Potassium [Moles/Vol] 3.9 mmol/L 3.5 - 5.1 mmol/L [place] Protein [Mass/Vol] 6.2 g/dL Low 6.3 - 8.2 g/dL [place] Sodium [Moles/Vol] 136 mmol/L 135 - 145 mmol/L [place] Urea nitrogen [Mass/Vol] 17 mg/dL 7 - 20 mg/d L [place] Test Performed by [facility], [address] [place], [place], [place] [address] [place], [place] Add On Lab Teston 10-05-2019 Sodium [Moles/Vol] Accepted [place] Comment on above: Specimen available & acceptable for analysis. Test Performed by [facility], [address] [place], [place], [place] [address] [place] Basic Metabolic Panelon Anion gap [Moles/Vol] 5 mmol/L [place] Calcium [Mass/Vol] 7.4 mg/dL Low 8.4 - 10. 4 mg/dL [place] Chloride [Moles/Vol] 104 mmol/L 98 - 10 7 mmol/L [place] CO2 [Moles/Vol] 27 mmol/L 22 - 30 mmol/L [place] Creatinine [Mass/Vol] 0.48 mg/dL Low 0.52 - 1.25 mg/dL [place] EGFR IF NonAfrican [place]uvian >60.0 >60 mL/min [place] Comment on above: Source- MDRD equatio n with creatinine calibration to IDMS(NKDEP) eGFR not recommended for drug dose adjustment GFR/1.73 sq M predicted among blacks MDRD (S/P/Bld) [Vol rate/Area] mL/min/{1.73_m2} >60 mL/min [place] Glucose [Mass/Vol] 91 mg/dL 70 - 100 mg/dL [place] Interpretation and review of laboratory results Abnormal [place] Potassium [Moles/Vol] 3.6 mmol/L 3.5 - 5.1 mmol/L [place] Sodium [Moles/Vol] 135 mmol/L 135 - 145 mmol/L [place] Urea nitrogen [Mass/Vol] 15 mg/dL 7 - 20 mg/d L [place] Test Performed by [facility], [address], [place], [place] [address] [place] Anion gap [Moles/Vol] 4 mmol/L [place] Calcium [Mass/Vol] 6.0 mg/dL Low 8.4 - 10. 4 mg/dL [place] Chloride [Moles/Vol] 111 mmol/L High 98 - 10 7 mmol/L [place] CO2 [Moles/Vol] 24 mmol/L 22 - 30 mmol/L [place] Creatinine [Mass/Vol] 0.43 mg/dL Low 0.52 - 1.25 mg/dL [place] EGFR IF NonAfrican [place]uvian >60.0 >60 mL/min [place] Comment on above: Source- MDRD equatio n with creatinine calibration to IDMS(NKDEP) eGFR not recommended for drug dose adjustment GFR/1.73 sq M predicted among blacks MDRD (S/P/Bld) [Vol rate/Area] mL/min/{1.73_m2} >60 mL/min [place] Glucose [Mass/Vol] 87 mg/dL 70 - 100 mg/dL [place] Interpretation and review of laboratory results Abnormal [place] Potassium [Moles/Vol] 3.5 mmol/L 3.5 - 5.1 mmol/L [place] Sodium [Moles/Vol] 138 mmol/L 135 - 145 mmol/L [place] Urea nitrogen [Mass/Vol] 13 mg/dL 7 - 20 mg/d L [place] Test Performed by [facility], [address] [place], [place] [address] [place] Anion gap [Moles/Vol] 4 mmol/L [place] Calcium [Mass/Vol] 6.3 mg/dL Low 8.4 - 10. 4 mg/dL [place] Chloride [Moles/Vol] 106 mmol/L 98 - 10 7 mmol/L [place] CO2 [Moles/Vol] 26 mmol/L 22 - 30 mmol/L [place] Creatinine [Mass/Vol] 0.47 mg/dL Low 0.52 - 1.25 mg/dL [place] EGFR IF NonAfrican [place]uvian >60.0 >60 mL/min [place] Comment on above: Source- MDRD equatio n with creatinine calibration to IDMS(NKDEP) eGFR not recommended for drug dose adjustment GFR/1.73 sq M predicted among blacks MDRD (S/P/Bld) [Vol rate/Area] mL/min/{1.73_m2} >60 mL/min [place] Glucose [Mass/Vol] 93 mg/dL 70 - 100 mg/dL [place] Interpretation and review of laboratory results Abnormal [place] Potassium [Moles/Vol] 3.5 mmol/L 3.5 - 5.1 mmol/L [place] Sodium [Moles/Vol] 136 mmol/L 135 - 145 mmol/L [place] Urea nitrogen [Mass/Vol] 14 mg/dL 7 - 20 mg/d L [place] Test Performed by [facility], [address] [place], [place] [id number] [place] [address] CBC Auto Differentialon Erythrocyte distribution width (RBC) [Ratio] 15.3 % High 11.5 - 14.5 % [place] Hematocrit (Bld) [Volume fraction] 33.3 % Low 35 - 47 % [place] Hemoglobin (Bld) [Mass/Vol] 10.5 g/dL Low 11.7 - 16 g/dL [place] Interpretation and review of laboratory results Abnormal [place] MCH (RBC) [Entitic mass] 31.1 pg 26 - 34 pg [place] MCHC (RBC) [Mass/Vol] 31.6 % Low 32 - 36 % [place] [place] MCV (RBC) [Entitic vol] 98.5 fL High 79 - 98 fL [place], [place] Platelet mean volume (Bld) [Entitic vol] 9.1 fL 7.4 - 10.4 fL [place], [place] Platelets (Bld) [#/Vol] 131 10*3/uL Low 140 - 440 10*3/uL [place] RBC (Bld) [#/Vol] 3.38 10*6/uL Low 3.8 - 5.2 10*6/uL [place], [place] WBC (Bld) [#/Vol] 11.1 10*3/uL High 3.6 - 10.7 10*3/uL [place] Test Performed by [facility], [address] [place], [place] [address] [place], [place] CTA CHEST W WO CONTRASTon Patient Name: CHARLIE NGUYEN ---CT--- Exam Date/Time 10/05/2019 11:55:25 EDT Exam CTA Chest w/ + w/o Contrast Ordering Physician MD JUDY, [facility] Accession Number [id number] CPT4 Codes 55000 (), Q9967 (CT ISOVUE 370MG/ML&[id number]& ML&1) Reason For Exam pulmonary emboli Report [...] a pleural lipoma Report Dictated on Workstation: [id number] --- Final --- Dictating Physician: MD KELLY DIANE Signed Date and Time: 10/05/2019 12:15 pm Signed by: MD KELLY DIANE Transcribed Date and Time: 10/05/2019 12:16 [place], [place] [facility], [facility] Incoming Radiology Results From [facility] - 10/05/2019 12:17 PM EDT Patient Name: CHARLIE NGUYEN ---CT--- Exam Date/Time 10/05/2019 11:55:25 EDT Exam CTA Chest w/ + w/o Contrast Ordering Physician MD KIM RAMI Accession Number [id number] CPT4 Codes 61892 (), Q9967 (CT ISOVUE 370MG/ML&[id number]& ML&1) Reason For Exam pulmonary emboli Report [...] Time: 10/05/2019 12:15 pm Signed by: MD ROBIN, KATTY Transcribed Date and Time: 10/05/2019 12:16 [place], [place] Calcium, Ionizedon 0 Interpretation and review of laboratory results Abnormal [place], [place] Ionized Ca 3.50 mg/dL Low 4.3 - 5.2 mg/dL [place], [place] pH (Bld) 7.42 [pH] [place] Test Performed by [facility], [address] [place] [address] Str. [place], [place], [place] [id number] [place] [address] EKG 12 Leadon 10-05-2019 [facility] Test Date: 2019-10-04 Pat Name: Charlie Nguyen Department: [facility] Room: 232 Gender: F [employer] Maintainer: GISELLE : 1955 Requested By: NICA SAL Order Number: [id number] Reading MD: Aldair Chao Measurements Intervals Tanana Rate: 99 P: 22 HI: 156 QRS: 5 QRSD: 100 T: 69 QT: 344 QTc: 442 Interpretive Statements SINUS RHYTHM BORDERLINE T WAVE ABNORMALITIES Compared to ECG 10/04/2019 08:40:28 Sinus tachycardia no longer present T-wave abnormality still present Electronically Signed On 10-05-2019 11:00:42 EDT by Aldair Zhanna [place], [place], [facility] Incoming Cardiology Results From [facility] - 10/05/2019 11:01 AM EDT [employer] [facility] Test Date: 2019-10-04 Pat Name: Charlie Nguyen Department: [facility] Room: 232 Gender: F [employer] Maintainer: GISELLE : 1955 Requested By: NICA Studio[employer]CO A Order Number: [id number] Reading MD: Aldair Chao Measurements Intervals Tanana Rate: 99 P: 22 HI: 156 QRS: 5 QRSD: 100 T: 69 QT: 344 QTc: 442 Interpretive Statements SINUS RHYTHM BORDERLINE T WAVE ABNORMALITIES Compared to ECG 10/04/2019 08:40:28 Sinus tachycardia no longer present T-wave abnormality still present Electronically Signed On 10-05-2019 11:00:42 EDT by [facility] Test Date: 2019-10-04 Pat Name: Charlie Nguyen Department: [facility] Room: 232 Gender: F [employer] Maintainer: SH : 1955 Requested By: NICA Studio[employer]SCH Order Number: [id number] Reading MD: Aldair Chao Measurements Intervals Tanana Rate: 105 P: 10 HI: 164 QRS: 0 QRSD: 102 T: 259 QT: 308 QTc: 408 Interpretive Statements SINUS TACHYCARDIA LATE PRECORDIAL R/S TRANSITION NONSPECIFIC T ABNORMALITIES, LATERAL LEADS Compared to ECG 10/03/2019 21:59:07 Ventricular premature complex(es) no longer present Myocardial infarct finding no longer present Possible ischemia no longer present T-wave abnormality still present Electronically Signed On 10-05-2019 10:59:16 EDT by [facility] [employer] [facility], [employer], [employer] Incoming Cardiology Results From [facility] - 10/05/2019 11:00 AM EDT [employer] [facility] Test Date: 2019-10-04 Pat Name: Charlie Nguyen Department: [facility] Room: 232 Gender: F [employer] Maintainer: : 1955 Requested By: NICA [employer] Order Number: [id number] Reading MD: Aldair Chao Measurements Intervals Tanana Rate: 105 P: 10 HI: 164 QRS: 0 QRSD: 102 T: 259 QT: 308 QTc: 408 Interpretive Statements SINUS TACHYCARDIA LATE PRECORDIAL R/S TRANSITION NONSPECIFIC T ABNORMALITIES, LATERAL LEADS Compared to ECG 10/03/2019 21:59:07 Ventricular premature complex(es) no longer present Myocardial infarct finding no longer present Possible ischemia no longer present T-wave abnormality still present Electronically Signed On 10-05-2019 10:59:16 EDT by [facility] [employer] [facility], [employer], [employer] Incoming Cardiology Results From [facility] - 10/05/2019 10:11 AM EDT [employer] [facility] Test Date: 2019-10-03 Pat Name: Charlie Nguyen Department: [facility] Room: 232 Gender: F [employer] Maintainer: ? : 1955 Requested By: NICA BOTSCH Order Number: [id number] Reading MD: Danny Lamb Measurements Intervals Tanana Rate: 114 P: 10 HI: 168 QRS: -4 QRSD: 106 T: 202 QT: 316 QTc: 436 Interpretive Statements SINUS TACHYCARDIA MULTIFORM VENTRICULAR PREMATURE COMPLEXES CONSIDER ANTEROSEPTAL INFARCT ABNORMAL T, CONSIDER ISCHEMIA, LATERAL LEADS BASELINE WANDER IN LEAD(S) V4 Electronically Signed On 10-05-2019 10:10:38 EDT by [facility], [facility] Test Date: 2019-10-03 Pat Name: Charlie Hicksell Department: [facility] Room: 232 Gender: F [employer] Maintainer: Narayan : 1955 Requested By: NICA SAL Order Number: [id number] Reading MD: Danny Lamb Measurements Intervals Tanana Rate: 114 P: 10 HI: 168 QRS: -4 QRSD: 106 T: 202 QT: 316 QTc: 436 Interpretive Statements SINUS TACHYCARDIA MULTIFORM VENTRICULAR PREMATURE COMPLEXES CONSIDER ANTEROSEPTAL INFARCT ABNORMAL T, CONSIDER ISCHEMIA, LATERAL LEADS BASELINE WANDER IN LEAD(S) V4 Electronically Signed On 10-05-2019 10:10:38 EDT by [place] EKG 12 Lead - Chest Painon 0 10-05-2019 [place], [facility] Incoming Cardiology Results From [facility] - 10/05/2019 9:42 AM EDT [facility] Test Date: 2019-10-03 Pat Name: Charlie Hicksell Department: Room: 232 Gender: F [employer] Maintainer: OTONIEL : 1955 Requested By: LULI MORRIS Order Number: [id number] Reading : Danny Miranda Intervals Tanana Rate: 79 P: 11 HI: 188 QRS: -22 QRSD: 108 T: 6 QT: 366 QTc: 420 Interpretive Statements SINUS RHYTHM LEFT VENTRICULAR HYPERTROPHY BASELINE WANDER IN LEAD(S) V4 CONSIDER PRIOR AWMI Electronically Signed On 10-05-2019 9:41:32 EDT by [facility] Test Date: 2019-10-03 Pat Name: Charlie Nguyen Department: Room: 232 Gender: F [employer] Maintainer: OTONIEL : 1955 Requested By: LULI MORRIS Order Number: [id number] Reading : Danny Lamb Measurements Intervals Tanana Rate: 79 P: 11 HI: 188 QRS: -22 QRSD: 108 T: 6 QT: 366 QTc: 420 Interpretive Statements SINUS RHYTHM LEFT VENTRICULAR HYPERTROPHY BASELINE WANDER IN LEAD(S) V4 CONSIDER PRIOR AWMI Electronically Signed On 10-05-2019 9:41:32 EDT by Danny Lamb [place], [place] Gram Stainon 10-05-2019 INR Coag (Bld) [Relative time] Many polymorphonuclear cells/lpf. Rare epithelial cells/lpf. Many gram positive cocci in pairs and chains. Moderate gram positive bacilli. Few gram negative bacilli. [place], [place] Test Performed by [employer] [address] [place] [address] Specimen Source Comment:Sputum [place], [place] Magnesiumon 10-05-2019 Magnesium [Mass/Vol] 1.7 mg/dL 1.6 - 2 .3 mg/dL [place], [place] Manual Differentialon 2019 Absolute Baso # 0.0 10*3/uL 0 - 0.2 10*3/uL [place] Absolute Eos # 0.1 10*3/uL 0 - 0.5 10*3/uL [place], [place] Absolute Lymph # 0.9 10*3/uL Low 1.1 - 4.5 10*3/uL [place] Absolute [place] # 0.9 10*3/uL 0.2 - 1.1 10*3/uL [place] Absolute Neut # 9.2 10*3/uL High 2.2 - 8.2 10*3/uL [place] Anisocytosis Ql (Bld) Slight Stephanie [place], [place] Bands 0 % 0 - 3 % [place], [place] Basophils 0 % 0 - 2 % [place] Eosinophils 1 % 1 - 6 % [place] Interpretation and review of laboratory results Abnormal [place], [place] Lymphocytes 8 % Low 20 - 40 % [place] Monocytes 8 % 2 - 10 % [place] RBC morphology finding Nom (Bld) ABNORMAL [place], [place] Seg Neutrophils 83 % High 40 - 80 % [place] TOTAL CELLS COUNTED 100 [place], [place] Test Performed by [employer] [facility] [address], [place], [place] [id number] [place] [address] Otheron 10-05-2019 Test Performed by [facility], [address] [place], [place], [place] [address] [place], [place] POCT Arterialon 10-05-2019 Base Excess, Arterial 5.7 mmol/L High -3 - 3 mmol/L [place], [place] HCO3, Arterial 29.9 mmol/L High 21 - 25 mmol/L [place], [place] Interpretation and review of laboratory results Abnormal [place], [place] Oxygen saturation in Blood 93.4 % Low 95 - 100 % [place] pCO2, Arterial 41.4 mm[Hg] 35 - 45 mm[Hg] [place] pH, Arterial 7.468 High [place], [place] pO2, Arterial 64.5 mm[Hg] Low 80 - 100 mm[Hg] [place], [place] Sodium [Moles/Vol] 50 mmol/L [place], [place] Comment on above: Performed by [facility] ID : [id number] [place], [place] TCO2, Arterial 31.2 mmol/L High 23 - 27 mmol/L [place] Test Performed by [facility], [address] [place], [place] [id number] [place] [address] Phosphoruson 10-05-2019 Phosphate [Mass/Vol] 2.5 mg/dL 2.5 - 4 .5 mg/dL [place] XR CHEST PORTABLEon 10-05-19 20 [facility], [facility] Incoming Radiology Results From [facility] - 10/05/2019 6:13 AM EDT Patient Name: CHARLIE NGUYEN ---Diagnostic Radiology--- Exam Date/Time 10/05/2019 05:16:10 EDT Exam CR Chest Portable Ordering Physician BENJAMIN SAL ALEXANDER Accession Number [id number] CPT4 Codes 71232 () Reason For Exam respiratory failure Report [...] atelectasis and/or infiltrate. Report Dictated on Workstation: [id number] --- Final --- Dictating Physician: DO DICKEY ALFRED Signed Date and Time: 10/05/2019 6:11 am Signed by: DO DICKEY ALFRED Transcribed Date and Time: 10/05/2019 6:12 [place], [place] Patient Name: CHARLIE NGUYEN ---Diagnostic Radiology--- Exam Date/Time 10/05/2019 05:16:10 EDT Exam CR Chest Portable Ordering Physician BENJAMIN SAL ALEXANDER Accession Number [id number] CPT4 Codes 09167 () Reason For Exam respiratory failure Report [...] atelectasis and/or infiltrate. Report Dictated on Workstation: [id number] --- Final --- Dictating Physician: DO DICKEY ALFRED Signed Date and Time: 10/05/2019 6:11 am Signed by: DO DICKEY ALFRED Transcribed Date and Time: 10/05/2019 6:12 [place], [place] Add On Lab Teston 10-04-2019 Sodium [Moles/Vol] Accepted [place], [place] Comment on above: Specimen available & acceptable for analysis. Test Performed by [employer] [address], [place], [place] [address] [place], [place] Basic Metabolic Panelon 05-0 Anion gap [Moles/Vol] 5 mmol/L [place], [place] Calcium [Mass/Vol] 7.7 mg/dL Low 8.4 - 10. 4 mg/dL [place], [place] Chloride [Moles/Vol] 97 mmol/L Low 98 - 10 7 mmol/L [place] CO2 [Moles/Vol] 34 mmol/L High 22 - 30 mmol/L [place] Creatinine [Mass/Vol] 0.61 mg/dL 0.52 - 1.25 mg/dL [place] EGFR IF NonAfrican Peruvian >60.0 >60 mL/min [place], [place] Comment on above: Source- MDRD equatio n with creatinine calibration to IDMS(NKDEP) eGFR not recommended for drug dose adjustment GFR/1.73 sq M predicted among blacks MDRD (S/P/Bld) [Vol rate/Area] mL/min/{1.73_m2} >60 mL/min [place] Glucose [Mass/Vol] 104 mg/dL High 70 - 100 mg/dL [place], [place] Interpretation and review of laboratory results Abnormal [place] Potassium [Moles/Vol] 3.4 mmol/L Low 3.5 - 5.1 mmol/L [place] Sodium [Moles/Vol] 135 mmol/L 135 - 145 mmol/L [place] Urea nitrogen [Mass/Vol] 16 mg/dL 7 - 20 mg/d L [place], [place] Test Performed by [employer] [address], [place], [place] [address] [place], [place] Anion gap [Moles/Vol] 10 mmol/L [place], [place] Calcium [Mass/Vol] 8.3 mg/dL Low 8.4 - 10. 4 mg/dL [place] Chloride [Moles/Vol] 95 mmol/L Low 98 - 10 7 mmol/L [place] CO2 [Moles/Vol] 34 mmol/L High 22 - 30 mmol/L [place] Creatinine [Mass/Vol] 0.68 mg/dL 0.52 - 1.25 mg/dL [place] EGFR IF NonAfrican Peruvian >60.0 >60 mL/min [place], [place] Comment on above: Source- MDRD equatio n with creatinine calibration to IDMS(NKDEP) eGFR not recommended for drug dose adjustment GFR/1.73 sq M predicted among blacks MDRD (S/P/Bld) [Vol rate/Area] mL/min/{1.73_m2} >60 mL/min [place] Glucose [Mass/Vol] 108 mg/dL High 70 - 100 mg/dL [place] Interpretation and review of laboratory results Abnormal [place] Potassium [Moles/Vol] 3.6 mmol/L 3.5 - 5.1 mmol/L [place] Sodium [Moles/Vol] 138 mmol/L 135 - 145 mmol/L [place], [place] Urea nitrogen [Mass/Vol] 17 mg/dL 7 - 20 mg/d L [place] Test Performed by [facility], [address] [place] [address] [place], [place] Basic Metabolic Panel w/ Ref balaji to MGon 10-04-2019 Anion gap [Moles/Vol] 6 mmol/L [place], [place] Calcium [Mass/Vol] 6.7 mg/dL Low 8.4 - 10. 4 mg/dL [place], [place] Chloride [Moles/Vol] 100 mmol/L 98 - 10 7 mmol/L [place] CO2 [Moles/Vol] 31 mmol/L High 22 - 30 mmol/L [place], [place] Creatinine [Mass/Vol] 0.58 mg/dL 0.52 - 1.25 mg/dL [place] EGFR IF NonAfrican Peruvian >60.0 >60 mL/min [place] Comment on above: Source- MDRD equatio n with creatinine calibration to IDMS(NKDEP) eGFR not recommended for drug dose adjustment GFR/1.73 sq M predicted among blacks MDRD (S/P/Bld) [Vol rate/Area] mL/min/{1.73_m2} >60 mL/min [place], [place] Glucose [Mass/Vol] 116 mg/dL High 70 - 100 mg/dL [place], [place] Interpretation and review of laboratory results Abnormal [place] Potassium [Moles/Vol] 3.3 mmol/L Low 3.5 - 5.1 mmol/L [place], [place] Sodium [Moles/Vol] 137 mmol/L 135 - 145 mmol/L [place], [place] Urea nitrogen [Mass/Vol] 18 mg/dL 7 - 20 mg/d L [place], [place] CBC auto differentialon 05-0 Absolute Baso # 0.1 10*3/uL 0 - 0.2 10*3/uL [place], [place] Absolute Neut # 11.6 10*3/uL High 1.8 - 7 10*3/uL [place], [place] Basophils/100 WBC (Bld) 0.4 % 0 - 2 % [place], [place] Eosinophils (Bld) [#/Vol] 0.0 10*3/uL 0 - 0.5 10*3/uL [place], [place] Eosinophils/100 WBC (Bld) 0.0 % Low 1 - 6 % [place], [place] Erythrocyte distribution width (RBC) [Ratio] 15.5 % High 11.5 - 14.5 % [place], [place] Granulocytes/100 WBC (Bld) 86.9 % High 40 - 80 % [place] Hematocrit (Bld) [Volume fraction] 37.4 % 35 - 47 % [place], [place] Hemoglobin (Bld) [Mass/Vol] 12.2 g/dL 11.7 - 16 g/dL [place], [place] Interpretation and review of laboratory results Abnormal [place], [place] Lymphocytes (Bld) [#/Vol] 0.8 10*3/uL Low 1 - 4.3 10*3/uL [place], [place] Lymphocytes/100 WBC (Bld) 6.2 % Low 20 - 40 % [place], [place] MCH (RBC) [Entitic mass] 31.7 pg 26 - 34 pg [place], [place] MCHC (RBC) [Mass/Vol] 32.6 % 32 - 36 % [place], [place] MCV (RBC) [Entitic vol] 97.1 fL 79 - 98 fL [place], [place] Monocytes (Bld) [#/Vol] 0.9 10*3/uL High 0 - 0.8 10*3/uL [place], [place] Monocytes/100 WBC (Bld) 6.5 % 2 - 10 % [place] Platelet mean volume (Bld) [Entitic vol] 9.0 fL 7.4 - 10.4 fL [place], [place] Platelets (Bld) [#/Vol] 131 10*3/uL Low 140 - 440 10*3/uL [place] RBC (Bld) [#/Vol] 3.85 10*6/uL 3.8 - 5.2 10*6/uL [place] WBC (Bld) [#/Vol] 13.3 10*3/uL High 3.6 - 10.7 10*3/uL [place], [place] Test Performed by [facility], [address] [place], [place] [address] [place], [place] COVID-19on 10-04-2019 SARS-CoV-2 Not Detected Expected Result: Not Detected _ Real-time, RT-PCR performed on the [employer] System by the [facility]. Negative results do not preclude SARS-CoV-2 infection and should not be used as the sole basis for treatment or other patient management decisions. This assay was developed by [employer] and distributed under an Emergency Use Authorization (EUA) granted by the FDA for the qualitative detection of SARS-CoV-2 nucleic acid. [place] Test Performed by [facility], [address] [place] [address] [place], [place] Magnesiumon 10-04-2019 Magnesium [Mass/Vol] 1.6 mg/dL 1.6 - 2 .3 mg/dL [place] Otheron 10-04-2019 Test Performed by [facility], [address] [place], [place] [address] [facility] POCT Arterialon 10-04-2019 Base Excess, Arterial 6.5 mmol/L High -3 - 3 mmol/L [facility] [place], [place] HCO3, Arterial 31.5 mmol/L High 21 - 25 mmol/L [facility] [place] Interpretation and review of laboratory results Abnormal [facility] Oxygen saturation in Blood 94.1 % Low 95 - 100 % [facility] pCO2, Arterial 45.4 mm[Hg] High 35 - 45 mm[Hg] [facility] [place] pH, Arterial 7.448 [facility] pO2, Arterial 69.1 mm[Hg] Low 80 - 100 mm[Hg] [facility] [place] Sodium [Moles/Vol] 60 mmol/L [facility] [place] Comment on above: Performed by CLIA ID : [id number] [place] TCO2, Arterial 32.9 mmol/L High 23 - 27 mmol/L [facility] Test Performed by [facility], [address] [place], [place] [address] [facility] [place] Base Excess, Arterial 6.8 mmol/L High -3 - 3 mmol/L [facility] HCO3, Arterial 31.7 mmol/L High 21 - 25 mmol/L [facility] [place] Interpretation and review of laboratory results Abnormal [facility] Oxygen saturation in Blood 95.1 % 95 - 100 % [facility] [place] pCO2, Arterial 45.0 mm[Hg] 35 - 45 mm[Hg] [facility] pH, Arterial 7.456 High [facility] pO2, Arterial 73.2 mm[Hg] Low 80 - 100 mm[Hg] [facility] Sodium [Moles/Vol] 60 mmol/L [facility] Comment on above: Performed by CLIA ID : [id number] [place] TCO2, Arterial 33 mmol/L High 23 - 27 mmol/L [facility] Test Performed by [facility], [address] [place], [place] [address] [place], [place] Phosphoruson 10-04-2019 Phosphate [Mass/Vol] 3.0 mg/dL 2.5 - 4 .5 mg/dL [place] Procalcitoninon 10-04-2019 Interpretation and review of laboratory results Abnormal [place], [place] Procalcitonin 0.6 ng/mL Abnormal <0.10 [place], [place] Sodium [Moles/Vol] See Below [place], [place] Comment on above: PCT <0.50 = Low risk of severe sepsis and/or septic shock. PCT >2.00 = High risk of severe sepsis and/or septic shock. Test Performed by [email or web address] [facility], [address] [place] [address] [place], [place] ACETAMINOPHEN LEVELon 2019 Acetaminophen [Mass/Vol] <10.0 10 - 30 ug/mL [place] Acetaminophen Levelon 2019 Acetaminophen [Mass/Vol] <10.0 10 - 30 ug/mL [place] Test Performed by [facility], [address] [place], [place] [address] [place], [place] Basic Metabolic Panelon Anion gap [Moles/Vol] 9 mmol/L [place], [place] Calcium [Mass/Vol] 7.7 mg/dL Low 8.4 - 10. 4 mg/dL [place] Chloride [Moles/Vol] 92 mmol/L Low 98 - 10 7 mmol/L [place] CO2 [Moles/Vol] 34 mmol/L High 22 - 30 mmol/L [place], [place] Creatinine [Mass/Vol] 0.53 mg/dL 0.52 - 1.25 mg/dL [place] EGFR IF NonAfrican Peruvian >60.0 >60 mL/min [place], [place] Comment on above: Source- MDRD equatio n with creatinine calibration to IDMS(NKDEP) eGFR not recommended for drug dose adjustment GFR/1.73 sq M predicted among blacks MDRD (S/P/Bld) [Vol rate/Area] mL/min/{1.73_m2} >60 mL/min [place] Glucose [Mass/Vol] 198 mg/dL High 70 - 100 mg/dL [place], [place] Interpretation and review of laboratory results Abnormal [place] Potassium [Moles/Vol] 2.9 mmol/L Low 3.5 - 5.1 mmol/L [place] Sodium [Moles/Vol] 135 mmol/L 135 - 145 mmol/L [place] Urea nitrogen [Mass/Vol] 23 mg/dL High 7 - 20 mg/d L [place], [place] Test Performed by [employer] [address] [place], [place], [place] [address] [place], [place] Anion gap [Moles/Vol] 10 mmol/L [place], [place] Calcium [Mass/Vol] 8.4 mg/dL 8.4 - 10. 4 mg/dL [place] Chloride [Moles/Vol] 97 mmol/L Low 98 - 10 7 mmol/L [place] CO2 [Moles/Vol] 32 mmol/L High 22 - 30 mmol/L [place] Creatinine [Mass/Vol] 0.73 mg/dL 0.52 - 1.25 mg/dL [place] EGFR IF NonAfrican Peruvian >60.0 >60 mL/min [place], [place] Comment on above: Source- MDRD equatio n with creatinine calibration to IDMS(NKDEP) eGFR not recommended for drug dose adjustment GFR/1.73 sq M predicted among blacks MDRD (S/P/Bld) [Vol rate/Area] mL/min/{1.73_m2} >60 mL/min [place] Glucose [Mass/Vol] 103 mg/dL High 70 - 100 mg/dL [place], [place] Interpretation and review of laboratory results Abnormal [place] Potassium [Moles/Vol] 4.0 mmol/L 3.5 - 5.1 mmol/L [place] Sodium [Moles/Vol] 139 mmol/L 135 - 145 mmol/L [place] Urea nitrogen [Mass/Vol] 34 mg/dL High 7 - 20 mg/d L [place] Test Performed by [facility], [address] [place], [place] [address] [place], [place] Brain Natriuretic Peptideon 10-03-2019 Interpretation and review of laboratory results Abnormal [place] Natriuretic peptide B (Bld) [Mass/Vol] 222 pg/mL High 0 - 125 pg/mL [place] CKon 10-03-2019 Total CK 60 U/L 30 - 170 U/L [place] CT Cervical Spine WO Contras ton 10-03-2019 [place], [facility] Incoming Radiology Results From [facility] - 10/03/2019 11:09 AM EDT Patient Name: CHARLIE NGUYEN ---CT--- Exam Date/Time 10/03/2019 10:54:[address] Spine Cervical w/o Contrast Ordering Physician DO MORRIS DAVID J Accession Number [id number] CPT4 Codes 38166 () Reason For Exam Suspected overdose Report [...] KEVIN Transcribed Date and Time: 10/03/2019 11:09 [place] Patient Name: CHARLIE NGUYEN ---CT--- Exam Date/Time 10/03/2019 10:54:[address] Spine Cervical w/o Contrast Ordering Physician DO MORRIS DAVID J Accession Number [id number] CPT4 Codes 83873 () Reason For Exam Suspected overdose Report [...] KEVIN Transcribed Date and Time: 10/03/2019 11:09 [place] CT Head WO Contraston 2019 Patient Name: CHARLIE NGUYEN ---CT--- Exam Date/Time 10/03/2019 10:54:[address] Head or Brain w/o Contrast Ordering Physician DO MORRIS DAVID J Accession Number [id number] CPT4 Codes 71925 () Reason For Exam AMS, suspected overdose [...] KEVIN Transcribed Date and Time: 10/03/2019 11:01 [place] [facility], [facility] Incoming Radiology Results From [facility] - 10/03/2019 11:01 AM EDT Patient Name: CHARLIE NGUYEN ---CT--- Exam Date/Time 10/03/2019 10:54:[address] Head or Brain w/o Contrast Ordering Physician DO MORRIS DAVID J Accession Number [id number] CPT4 Codes 22241 () Reason For Exam AMS, suspected overdose [...] KEVIN Transcribed Date and Time: 10/03/2019 11:01 [facility], [place] Comprehensive Metabolic Pane rafiq 10-03-2019 Albumin [Mass/Vol] 3.9 g/dL 3.5 - 5 g/dL [place] ALP [Catalytic activity/Vol] 132 U/L High 38 - 126 U/L [place] ALT [Catalytic activity/Vol] 20 U/L 0 - 34 U/L [place] Comment on above: The ALT test is perf ormed by an updated assay method. Please note that the reference intervals have been changed and are now sex specific. Anion gap [Moles/Vol] 10 mmol/L [place] AST [Catalytic activity/Vol] 27 U/L 15 - 46 U/L [place] Bilirubin Ql (U) 0.6 mg/dL 0.2 - 1.3 mg/dL [place] Calcium [Mass/Vol] 8.5 mg/dL 8.4 - 10. 4 mg/dL [place] Chloride [Moles/Vol] 96 mmol/L Low 98 - 10 7 mmol/L [place] CO2 [Moles/Vol] 33 mmol/L High 22 - 30 mmol/L [place] Creatinine [Mass/Vol] 0.87 mg/dL 0.52 - 1.25 mg/dL [place] EGFR IF NonAfrican Peruvian >60.0 >60 mL/min [place] Comment on above: Source- MDRD equatio n with creatinine calibration to IDMS(NKDEP) eGFR not recommended for drug dose adjustment GFR/1.73 sq M predicted among blacks MDRD (S/P/Bld) [Vol rate/Area] mL/min/{1.73_m2} >60 mL/min [place] Glucose [Mass/Vol] 127 mg/dL High 70 - 100 mg/dL [place] Potassium [Moles/Vol] 3.7 mmol/L 3.5 - 5.1 mmol/L [place] Protein [Mass/Vol] 7.5 g/dL 6.3 - 8.2 g/dL [place] Sodium [Moles/Vol] 139 mmol/L 135 - 145 mmol/L [place] Urea nitrogen [Mass/Vol] 37 mg/dL High 7 - 20 mg/d L [place] Ethanolon 10-03-2019 Ethanol Lvl <0.010 0 - 0.01 g/dL [place] Comment on above: NOTE: This result is for medical treatment only. Analysis performed using non-forensic procedures. Hemogram (CBC) w/Auto Diffon 10-03-2019 Absolute Baso # 0.1 10*3/uL 0 - 0.2 10*3/uL [place] Absolute Neut # 10.0 10*3/uL High 1.8 - 7 10*3/uL [place] Basophils/100 WBC (Bld) 0.9 % 0 - 2 % [place] Eosinophils (Bld) [#/Vol] 0.0 10*3/uL 0 - 0.5 10*3/uL [place] Eosinophils/100 WBC (Bld) 0.1 % Low 1 - 6 % [place] Erythrocyte distribution width (RBC) [Ratio] 15.2 % High 11.5 - 14.5 % [place] Granulocytes/100 WBC (Bld) 82.5 % High 40 - 80 % [place] Hematocrit (Bld) [Volume fraction] 43.1 % 35 - 47 % [place] Hemoglobin (Bld) [Mass/Vol] 14.1 g/dL 11.7 - 16 g/dL [place] Interpretation and review of laboratory results Abnormal [place] Lymphocytes (Bld) [#/Vol] 1.2 10*3/uL 1 - 4.3 10*3/uL [place] Lymphocytes/100 WBC (Bld) 9.7 % Low 20 - 40 % [place] MCH (RBC) [Entitic mass] 31.9 pg 26 - 34 pg [place] MCHC (RBC) [Mass/Vol] 32.8 % 32 - 36 % [place] MCV (RBC) [Entitic vol] 97.2 fL 79 - 98 fL [place] Monocytes (Bld) [#/Vol] 0.8 10*3/uL 0 - 0.8 10*3/uL [place] Monocytes/100 WBC (Bld) 6.8 % 2 - 10 % [place] Platelet mean volume (Bld) [Entitic vol] 9.0 fL 7.4 - 10.4 fL [place] Platelets (Bld) [#/Vol] 187 10*3/uL 140 - 440 10*3/uL [place] RBC (Bld) [#/Vol] 4.43 10*6/uL 3.8 - 5.2 10*6/uL [place] WBC (Bld) [#/Vol] 12.1 10*3/uL High 3.6 - 10.7 10*3/uL [place] Test Performed by [facility], [address] [place] [id number] [place] [address] Intubationon 10-03-2019 Luli Morris DO 10/03/2019 10:49 [...] passed the ET tube times one attempt. [place], [place] Lactic Acid, Plasmaon 2019 Lactate [Moles/Vol] 1.3 mmol/L 0.7 - 2 mmol/L [place] Lipaseon 10-03-2019 Lipase [Catalytic activity/Vol] 67 U/L 23 - 300 U/L [place] Magnesiumon 10-03-2019 Magnesium [Mass/Vol] 1.5 mg/dL Low 1.6 - 2 .3 mg/dL [place] Otheron 10-03-2019 Test Performed by [facility], [address], [address] Test Performed by [facility], [facility] [address], [address] Interpretation and review of laboratory results Abnormal [place] Test Performed by [facility], [facility] [address] [place], [address] POCT Arterialon 10-03-2019 Base Excess, Arterial 9.2 mmol/L High -3 - 3 mmol/L [place] HCO3, Arterial 33.7 mmol/L High 21 - 25 mmol/L [place] Interpretation and review of laboratory results Abnormal [place] Oxygen saturation in Blood 92.6 % Low 95 - 100 % [place] pCO2, Arterial 44.1 mm[Hg] 35 - 45 mm[Hg] [place] pH, Arterial 7.492 High [place] pO2, Arterial 60.8 mm[Hg] Low 80 - 100 mm[Hg] [place] Sodium [Moles/Vol] 60 mmol/L [place] Comment on above: Performed by LATASHA ID : [id number] [place], [place] TCO2, Arterial 35.1 mmol/L High 23 - 27 mmol/L [place] Test Performed by [facility], [facility] [address] Base Excess, Arterial 8.6 mmol/L High -3 - 3 mmol/L [facility], [place] HCO3, Arterial 34.4 mmol/L High 21 - 25 mmol/L [place] Interpretation and review of laboratory results Abnormal [place] Oxygen saturation in Blood 89.9 % Low 95 - 100 % [place] pCO2, Arterial 49.7 mm[Hg] High 35 - 45 mm[Hg] [place] pH, Arterial 7.448 [place] pO2, Arterial 56.9 mm[Hg] Low 80 - 100 mm[Hg] [place] Sodium [Moles/Vol] 40 mmol/L [place] Comment on above: Performed by CLIA ID : [id number] [place], [place] TCO2, Arterial 35.9 mmol/L High 23 - 27 mmol/L [place] Test Performed by [facility], [address] POCT Glucoseon 10-03-2019 Glucose [Mass/Vol] 125 mg/dL High 70 - 100 mg/dL [place] Comment on above: Test performed by gl ucose meter. Results may be 10%-15% lower than serum/plasma values. (CLIA ID [id number]) Interpretation and review of laboratory results Abnormal [place] Test Performed by [facility], [address] SALICYLATE LEVELon 0 Salicylate Lvl 1.1 mg/dL 0 - 20 mg/dL [place] Test Performed by [facility], [address] [place], [place] [id number] [place] [address] Troponin x1on 10-03-2019 Troponin I.cardiac [Mass/Vol] ng/mL 0 - 0.034 ng/mL [place] Comment on above: . Urinalysison 10-03-2019 Appearance (U) Clear Clear NA [place] Comment on above: . Bacteria, UA Many Abnormal Negative /[HPF] [place] Comment on above: . Bilirubin Urine Negative Negative mg/dL [place] Comment on above: . Color (U) Yellow Lt. Yellow NA [place] Comment on above: . Glucose, Ur Normal Normal (<70) mg/dL [place] Comment on above: . Interpretation and review of laboratory results Abnormal [place] Ketones Ql (U) Negative Negative mg/dL [place] Comment on above: . LEUKOCYTES, UA 250 Abnormal Negative Simon/uL [place] Comment on above: . Mucous Threads Few Negative /[LPF] [place] Comment on above: . Nitrite, Urine Negative Negative NA [place] Comment on above: . Occult Blood,Urine Negative Negative mg/dL [place] Comment on above: . pH (U) 5.5 [pH] [place] Comment on above: . Protein (U) [Mass/Vol] 10 mg/dL Abnormal Negative [place] Comment on above: . RBC (U) [#/Vol] 0-2 0 - 2 /[HPF] [place] Comment on above: . Specific [place], Urine 1.024 M [place] Comment on above: . Squam Epithel, UA 0-2 3 - 5 /[HPF] [place] Comment on above: . Urobilinogen, Urine Normal Normal ( 0-1) mg/dL [place] Comment on above: . WBC, UA 26-50 Abnormal 0 - 5 /[HPF] [place] Comment on above: . Test Performed by [facility], [address] [place], [place] [address] [place] Urine Drug Screenon 10-03-19 20 Amphetamines, urine Negative [place] Barbiturates, Ur Negative [place] Benzodiazepine Ur Qual Positive [place] Cocaine Metabolites, Ur Negative [place] Methadone, Urine Negative [place] Opiates, Urine Negative [place] Oxycodone Screen, Ur Negative [place] PCP, Urine Negative [place] Comment on above: The expected value [...] confirmation under separate order. Test Performed by [facility], [address] [place], [place], [place] [address] [place] XR CHEST PORTABLEon 10-03-19 Patient Name: CHARLIE NGUYEN ---Diagnostic Radiology--- Exam Date/Time 10/03/2019 08:25:00 EDT Exam CR Chest Portable Ordering Physician DO MORRIS DAVID J Accession Number [id number] CPT4 Codes 88198 () Reason For Exam Altered mental status, [...] No focal consolidation seen. Report Dictated on Workstation: [id number] --- Final --- Dictating Physician: MD CARPENTER JONATHAN R Signed Date and Time: 10/03/2019 8:43 am Signed by: MD CARPENTER JONATHAN R Transcribed Date and Time: 10/03/2019 8:44 [facility], [place], [facility] Incoming Radiology Results From [facility] - 10/03/2019 8:44 AM EDT Patient Name: CHARLIE NGUYEN ---Diagnostic Radiology--- Exam Date/Time 10/03/2019 08:25:00 EDT Exam CR Chest Portable Ordering Physician DO MORRIS DAVID J Accession Number [id number] CPT4 Codes 80985 () Reason For Exam Altered mental status, [...] R Transcribed Date and Time: 10/03/2019 8:44 [place] URINE CULTUREon 10-30-2018 Bacteria identified Cx [...] LEVOFLOXACIN <2 S MEROPENEM <1 S Normal [facility] Comment on above: Performed By: #### M [id number] #### [facility] [address] [place] [address] UA COMPLETEon 10-28-2018 UA LK ESTERASE 500 Normal NEGATIVE [facility] Comment on above: Performed By: #### L [id number] #### [facility] [place] [address] UA NITRITE Positive Normal NEGATIVE [facility] Comment on above: Performed By: #### L [id number] #### [facility] [place] [address] UA WBC 529 WBC/HPF High 0-5 [facility] Comment on above: Performed By: #### L [id number] #### [facility] [address] [place] [address] Color Nom (U) Yellow Normal [facility] Comment on above: Performed By: #### L [id number] #### [facility] [address] [place] [address] Glucose mass conc (U) Negative Normal NORMAL [facility] Comment on above: Performed By: #### L 600. #### [facility] [address] [place] [address] Mucus Ql (Urine sed) TRACE Normal NEGATIVE [facility] Comment on above: Performed By: #### L 600. #### [facility] [address] [place] [address] SQUAMOUS EPIS 7 EPI/HPF High 0-5 [facility] Comment on above: Performed By: #### L 600. #### [facility] [address] [place] [address] UA APPEARANCE Cloudy Normal CLEAR [facility] Comment on above: Performed By: #### L 600. #### [facility] [address] [place] [address] UA BACTERIA 1+ /HPF Normal NONE [facility] Comment on above: Performed By: #### L 600. #### [facility] [address] [place] [address] UA BILIRUBIN Negative Normal NEGATIVE [facility] Comment on above: Performed By: #### L [id number] #### [facility] [address] [place] [address] UA BLOOD SMALL Normal NEGATIVE [facility] Comment on above: Performed By: #### L [id number] #### [facility] [address] [place] [address] UA KETONE Negative Normal NEGATIVE [facility] Comment on above: Performed By: #### L [id number] #### [facility] [address] [place], [place] [id number] UA PH 6.0 Normal 5-6 [facility] Comment on above: Performed By: #### L 600. #### [facility] [address] [place], [place] [id number] UA PROTEIN Negative Normal NEGATIVE [facility] Comment on above: Performed By: #### L 600.67746 #### [facility] [address] [place] [address] UA RBC 3 RBC/HPF Normal 0-3 [facility] Comment on above: Performed By: #### L 600.95850 #### [facility] [address] [place], [place] [address] UA SPEC GRAV 1.015 Normal 1.005-1.030 [facility] Comment on above: Performed By: #### L [id number] #### [facility] [address] [place], [place] [id number] UA UROBILINOGEN Negative Normal NORMAL [facility] Comment on above: Performed By: #### L [id number] #### [facility] [address] [place], [place] [id number] WBC CLUMPS MANY Normal [facility] Comment on above: Performed By: #### L 600.47908 #### [facility] [address] [phone] Vital Signs Date Time Vital Sign Value Performing Clinician Facility 11-17-2022 15:49-0400 Diastolic blood pressure 80 mm[Hg] Marc Orionkola DO Work Phone: [facility] 11-17-2022 15:49-0400 Heart rate 77 /min Marc Padronla DO Work Phone: [facility] 11-17-2022 15:49-0400 Respiratory rate 20 /min Marc Padronla DO Work Phone: [facility] 11-17-2022 15:49-0400 SaO2% (BldA) [Mass fraction] 91 % Marc Padronla DO Work Phone: [facility] 11-17-2022 15:49-0400 Systolic blood pressure 114 mm[Hg] Marc Nereidala DO Work Phone: [facility] 11-17-2022 08:35-0400 Body mass index (BMI) [Ratio] 34.87 kg/m2 Marc Goodman DO Work Phone: [facility] 11-17-2022 08:35-0400 Body temperature 96.3 [degF] Marc Padronla DO Work Phone: [facility] 11-17-2022 08:35-0400 Body weight 113.4 kg Marc Goodman DO Work Phone: [facility] 01-15-2021 13:32-0400 Diastolic blood pressure 65 mm[Hg] Nehal Chano DO [facility] Phone: [facility] Work Phone: 01-15-2021 13:32-0400 Heart rate 78 /min Nehal Chano DO Work Phone: [facility] Work Phone: 01-15-2021 13:32-0400 SaO2% (BldA) [Mass fraction] 91 % Nehaleliel Madden DO Work Phone: [facility] Work Phone: 01-15-2021 13:32-0400 Systolic blood pressure 103 mm[Hg] Nehal Chano DO Work Phone: [facility] Work Phone: 01-15-2021 11:46-0400 Body height 180.3 cm Nehal Chano DO Work Phone: [facility] Work Phone: 01-15-2021 11:46-0400 Body mass index (BMI) [Ratio] 32.08 kg/m2 Nehaleliel Madden DO Work Phone: [facility] Work Phone: 01-15-2021 11:46-0400 Body temperature 99.39 [degF] Nehaleliel Madden DO Work Phone: [facility] Work Phone: 01-15-2021 11:46-0400 Body weight 104.33 kg Nehaleliel Madden DO Work Phone: [facility] Work Phone: 01-15-2021 11:46-0400 Respiratory rate 16 /min Nehaleliel Madden DO Work Phone: [facility] Work Phone: 01-06-2021 02:54-0400 Diastolic blood pressure 76 mm[Hg] Erika Hudson MD Work Phone: [facility] Work Phone: 01-06-2021 02:54-0400 Heart rate 62 /min Erika Hudson MD Work Phone: [facility] Work Phone: 01-06-2021 02:54-0400 Respiratory rate 16 /min Erika Hudson MD Work Phone: [facility] Work Phone: 08-08-2021 02:54-0400 SaO2% (BldA) [Mass fraction] 95 % Erika Hudson MD Work Phone: [facility] Work Phone: 01-06-2021 02:54-0400 Systolic blood pressure 102 mm[Hg] Erika Hudson MD Work Phone: [facility] Work Phone: 01-05-2021 19:10-0400 Body height 180.3 cm Erika Hudson MD [facility] Work Phone: 01-05-2021 19:10-0400 Body mass index (BMI) [Ratio] 32.08 kg/m2 Erika Hudson MD Work Phone: [facility] Work Phone: 01-05-2021 19:10-0400 Body temperature 100.51 [degF] Erika Hudson MD Work Phone: [facility] Work Phone: 01-05-2021 19:10-0400 Body weight 104.33 kg Erika Hudson MD Work Phone: [facility] Work Phone: 12-18-2020 23:25-0400 Diastolic blood pressure 66 mm[Hg] Jorge Mejia MD Work Phone: [facility] Work Phone: 12-18-2020 23:25-0400 Heart rate 65 /min Jorge Mejia MD Work Phone: [facility] Work Phone: 12-18-2020 23:25-0400 Respiratory rate 16 /min Jorge Mejia MD Work Phone: [facility] Work Phone: 12-18-2020 23:25-0400 SaO2% (BldA) [Mass fraction] 91 % Jorge Mejia MD Work Phone: [facility] Work Phone: 12-18-2020 23:25-0400 Systolic blood pressure 100 mm[Hg] Jorge Mejia MD Work Phone: [facility] Work Phone: 12-18-2020 20:35-0400 Body height 180.3 cm Jorge Mejia MD Work Phone: [facility] Work Phone: 12-18-2020 20:35-0400 Body mass index (BMI) [Ratio] 32.08 kg/m2 Jorge Mejia MD Work Phone: [facility] Work Phone: 12-18-2020 20:35-0400 Body temperature 99.1 [degF] Jorge Mejia MD Work Phone: [facility] Work Phone: 12-18-2020 20:35-0400 Body weight 104.33 kg Jorge Mejia MD Work Phone: [facility] Work Phone: 02-03-2020 15:38-0400 Body Temperature 97.3 [degF] [facility] 02-03-2020 15:38-0400 BP Diastolic 62 mm[Hg] [facility], [place] 02-03-2020 15:38-0400 BP Systolic 107 mm[Hg] [facility], [place] 02-03-2020 15:38-0400 Pulse (Heart Rate) 59 /min [facility], [place] 02-03-2020 15:38-0400 Pulse Oximetry 95 % [facility], [place] 02-03-2020 15:38-0400 Respiratory Rate 16 /min [facility], [place] 02-03-2020 05:59-0400 BMI (Body Mass Index) 33.64 kg/m2 [facility] [place] 02-03-2020 05:59-0400 Body [facility] [place] 01-30-2020 14:03-0400 Height 180.3 [facility] [place] 11-04-2019 20:50-0400 Body Temperature 98.01 [degF] Sulaiman [facility], [place] 11-04-2019 20:50-0400 BP Diastolic 81 mm[Hg] Sulaiman [facility] , [place] 11-04-2019 20:50-0400 BP Systolic 119 mm[Hg] Sulaiamn [facility] , [place] 11-04-2019 20:50-0400 Pulse (Heart Rate) 91 /min Sulaiman [facility], [place] 11-04-2019 20:50-0400 Pulse Oximetry 94 % Sulaiman [facility] , [place] 11-04-2019 20:50-0400 Respiratory Rate 20 /min Sulaiman [facility], [place] 11-04-2019 13:50-0400 BMI (Body Mass Index) 41.84 kg/m2 Sulaiman [facility], [place] 11-04-2019 13:50-0400 Body weight 136.08 kg Sulaiman [facility] , [place] 11-04-2019 13:50-0400 Height 180.3 cm Sulaiman [facility] , [place] 10-25-2019 08:08-0400 Body Temperature 98.01 [degF] Luli [facility], [place] 10-25-2019 08:08-0400 BP Diastolic 78 mm[Hg] [facility] , [place] 10-25-2019 08:08-0400 BP Systolic 116 mm[Hg] [facility] , [place] 10-25-2019 08:08-0400 Pulse (Heart Rate) 95 /min [facility], [place] 10-25-2019 08:08-0400 Pulse Oximetry 93 % [facility] , [place] 10-25-2019 08:08-0400 Respiratory Rate 18 /min [facility], [place] 10-13-2019 05:24-0400 BMI (Body Mass Index) 39.87 kg/m2 [facility], [place] 10-13-2019 05:24-0400 Body weight 122.47 kg [facility] [place] 10-05-2019 07:32-0400 Height 175.3 cm [facility] Encounters Encounter Date Encounter Type Care Provider Facility Start: 12-07-2024 End: 12-07-2024 ambulatory Moreno Oates MD Work Phone: Family Practice Comment on above: Headache Start: 11-18-2024 End: 11-18-2024 Refill Moreno Oates MD Work Phone: Family Practice Comment on above: Refill Request Start: 11-10-2024 End: 11-10-2024 Refill Moreno Oates MD Work Phone: Family Practice Comment on above: Refill Request Start: 11-09-2024 ambulatory Ender RICKS Faci lity:[facility] Start: 10-17-2024 End: 10-20-2024 ambulatory MORENO OATES [facility] Start: 10-15-2024 ambulatory Ender RICKS Faci lity:[facility] Start: 10-14-2024 End: 10-14-2024 Refill Moreno Oates MD Work Phone: Family Practice Comment on above: Refill Request Start: 09-16-2024 End: 09-16-2024 Refill Moreno Oates MD Work Phone: Family Practice Comment on above: Refill Request Start: 09-09-2024 End: 09-09-2024 ambulatory Ender RICKS Facility:[facility] Start: 08-18-2024 End: 08-18-2024 Refill Moreno Oates MD Work Phone: Family Practice Comment on above: Refill Request Start: 08-10-2024 End: 08-10-2024 ambulatory Ender Oates MD Work Phone: [facility] Work Phone: Start: 08-10-2024 End: 08-10-2024 Departed Referred Royer Reagan -[facility] [place] [address] Start: 08-10-2024 End: 08-10-2024 ambulatory Royer RICKS Facility:[facility] Start: 07-22-2024 End: 07-22-2024 Refill Moreno Oates MD Work Phone: Family [facility] Comment on above: Refill Request Start: 07-18-2024 End: 07-18-2024 Telephone encounter Moreno Oates MD Work Phone: Family [facility] Comment on above: Received Outside Med ical Records ([facility] ([facility] 07/12/2024) Start: 07-12-2024 ambulatory Ender RICKS Faci lity:[facility] Start: 07-12-2024 Registered [facility] [place] [facility] [address] Start: 07-04-2024 ambulatory Royer RICKS Facil ity:[facility] Start: 07-04-2024 Registered Referred Royer [facility] [place] [address] Start: 06-23-2024 End: 06-23-2024 Refill Moreno Oates MD Work Phone: Family [facility] Comment on above: Refill Request Start: 05-23-2024 End: 05-24-2024 Refill Moreno Oates MD Work Phone: Family [facility] Comment on above: Refill Request Start: 05-11-2024 End: 05-11-2024 Departed Referred Ender Oates MD -[facility] [place] [address] Start: 05-11-2024 End: 05-11-2024 ambulatory Ender RICKS Facility:[facility] Start: 04-22-2024 End: 04-22-2024 Refill Moreno Oates MD Work Phone: Family [facility] Comment on above: Refill Request Start: 04-21-2024 End: 04-22-2024 Refill Moreno Oates MD Work Phone: Family Practice Comment on above: Refill Request Start: 04-12-2024 End: 04-12-2024 Telephone encounter Moreno Oates MD Work Phone: Family Practice Comment on above: Received Outside Med ical Records ([facility] 04/11/2024) Start: 04-11-2024 End: 04-11-2024 ambulatory Ender RICKS Facility:[facility] Start: 03-31-2024 End: 03-31-2024 Refill Moreno Oates MD Work Phone: Family Practice Comment on above: Refill Request Start: 03-25-2024 End: 03-25-2024 Refill Moreno Oates MD Work Phone: Family Practice Comment on above: Refill Request Start: 03-24-2024 End: 03-24-2024 Refill Moreno Oates MD Work Phone: Family Practice Comment on above: Refill Request Start: 03-24-2024 End: 03-24-2024 ambulatory Ender RICKS Facility:[facility] Start: 03-17-2024 End: 03-17-2024 Telephone encounter Moreno Oates MD Work Phone: [facility] Comment on above: Orders ([facility] [place] [facility]) Start: 03-10-2024 End: 03-10-2024 Telephone encounter Moreno Oates MD Work Phone: Family Practice Comment on above: Outside Labs Results ([facility]) Start: 03-10-2024 End: 03-10-2024 ambulatory Royer RICKS Facility:[facility] Start: 02-29-2024 End: 02-29-2024 Refill Moreno Oates MD Work Phone: Family Practice Comment on above: Opened In Error Start: 02-26-2024 End: 02-26-2024 Refill Moreno Oates MD Work Phone: Family Practice Comment on above: Refill Request Start: 02-09-2024 ambulatory Royer RICKS Facil ity:[facility] Start: 01-27-2024 End: 01-28-2024 Refill Moreno Oates MD Work Phone: Family [facility] Comment on above: Refill Request Start: 12-30-2023 Refill Moreno peterson MD Work Phone: Family Practice Comment on above: Refill Request Start: 12-29-2023 End: 01-20-2024 Telephone encounter Moreno Oates MD Work Phone: Family [facility] Comment on above: Medication Request Start: 12-09-2023 ambulatory Ender RICKS [facility]ity:[facility] [facility] Start: 11-27-2023 Telephone encounter Moreno Oates MD Work Phone: Family [facility] Start: 11-10-2023 Telephone encounter Moreno Oates MD Work Phone: Family [facility] Comment on above: Received Outside Med ical Records ([facility] Labs 11/09/2023) Start: 10-27-2023 Refill Moreno peterson MD Work Phone: Family [facility] Comment on above: Refill Request Start: 10-12-2023 Telephone encounter Moreno Oates MD Work Phone: Family [facility] Comment on above: Outside Lab Results ([facility] 10/12/23) Start: 10-07-2023 Refill Moreno peterson MD Work Phone: Family [facility] Comment on above: Refill Request Start: 09-25-2023 Refill Moreno peterson MD Work Phone: Family [facility] Comment on above: Refill Request Start: 09-11-2023 Telephone encounter Moreno Oates MD Work Phone: Family [facility] Comment on above: Received Outside Med ical Records ([facility] Order to increase Zofran from 4 mg to 8 mg Q8 hr prn) Start: 08-11-2023 Telephone encounter Moreno Oates MD Work Phone: Family Practice Comment on above: Outside Labs Results ([facility]/ [facility]) Start: 08-10-2023 End: 08-10-2023 ambulatory [facility] Work Phone: Start: 08-10-2023 End: 08-10-2023 Departed Referred [facility] [place] [facility] [address] Start: 07-31-2023 Refill Moreno peterson MD Work Phone: Family Practice Comment on above: Refill Request Start: 07-30-2023 Refill Moreno peterson MD Work Phone: Family Practice Comment on above: Refill Request Start: 07-13-2023 End: 07-13-2023 Departed Referred [facility] [place] [facility] [address] Start: 06-08-2023 End: 06-08-2023 ambulatory [facility] Work Phone: Start: 06-08-2023 End: 06-08-2023 Departed Referred [facility] [place] [facility] [address] Start: 05-11-2023 Telephone encounter Moreno Oates MD Work Phone: Family Practice Comment on above: Received Outside Med ical Records ([facility] ([facility] Labs 05/11/2023) Start: 05-11-2023 End: 05-11-2023 Departed Referred [facility] [place] - [address] Start: 04-29-2023 Telephone encounter Moreno Oates MD Work Phone: Family Practice Start: 04-13-2023 Telephone encounter Moreno Oates MD Work Phone: Family Practice Comment on above: Received Outside Med ical Records ([facility] 04/06/2023) Start: 04-13-2023 End: 04-13-2023 ambulatory [facility] Work Phone: Start: 04-13-2023 End: 04-13-2023 Departed Referred [facility] [place] [facility] [address] Start: 04-06-2023 Telephone encounter Moreno Oates MD Work Phone: Family [facility] Comment on above: Orders Start: 03-30-2023 Telephone encounter Moreno Oates MD Work Phone: Family Practice Start: 03-09-2023 End: 03-09-2023 ambulatory [facility] Work Phone: Start: 03-09-2023 End: 03-09-2023 Dep[facility]ed [facility] [address] Start: 03-07-2023 End: 03-07-2023 Departed Referred [facility] - [address] Start: 02-13-2023 ambulatory Moreno peterson MD Work Phone: [facility] Comment on above: Nurse Triage Call Start: 02-12-2023 Telephone encounter Moreno Oates MD Work Phone: Family [facility] Comment on above: Received Outside Med ical Records (Lab results 02/09/23 [facility]) Start: 02-11-2023 Telephone encounter Moreno Oates MD Work Phone: Family Practice Comment on above: Medication Request Start: 02-09-2023 End: 02-09-2023 ambulatory [facility] Work Phone: Start: 02-09-2023 End: 02-09-2023 Departed Referred [facility] - [address] Start: 02-09-2023 Registered [facility] [address] Start: 01-31-2023 Telephone encounter Moreno Oates MD Work Phone: Family Practice Start: 01-26-2023 Telephone encounter Moreno Oates MD Work Phone: Family Practice Comment on above: Received Outside Med ical Records ([facility] Lower extremity venous duplex 01/21/2023) Start: 01-21-2023 End: 01-22-2023 ambulatory KENJI PHILLIP DO~[id number] [facility] Start: 01-13-2023 Refill Moreno peterson MD Work Phone: Family [facility] Comment on above: Refill Request Start: 01-12-2023 Telephone encounter Moreno Oatse MD Work Phone: Family [facility] Comment on above: Received Outside Med ical Records (Lab results from [facility]/ [facility] Lab) Start: 01-12-2023 End: 01-12-2023 ambulatory [facility] Work Phone: Start: 01-12-2023 End: 01-12-2023 Departed Referred [facility] [place] - [address] Start: 01-01-2023 Refill Moreno peterson MD Work Phone: Family [facility] Comment on above: Refill Request Start: 12-31-2022 Telephone encounter Moreno Oates MD Work Phone: Family [facility] Comment on above: Received Outside Med ical Records ([facility] ([facility]) Labs 12/30/2022) Start: 12-30-2022 End: 12-30-2022 Departed Referred [facility] [place] - [address] Start: 12-30-2022 Registered Referred [facility] [place] - [address] Start: 12-29-2022 ambulatory Moreno peterson MD Work Phone: Family [facility] Comment on above: Nurse Triage Call Start: 12-16-2022 Telephone encounter Moreno Oates MD Work Phone: Family [facility] Comment on above: Received Outside Med ical Records ([facility] Vascular Surgery 12/15/22) Start: 12-09-2022 End: 12-09-2022 ambulatory [facility] Work Phone: Start: 12-09-2022 End: 12-09-2022 Departed Referred [facility] [place] [facility] [address] Start: 12-01-2022 Telephone encounter Moreno Oates MD Work Phone: Family [facility] Comment on above: Orders Start: 11-27-2022 Registered Referred [facility] - [address] Start: 11-21-2022 Telephone encounter Moreno Oates MD Work Phone: Family Practice Comment on above: Orders ([facility] dre having extreme pain in left leg asking for an increase in percocet to every 4 hours.) Start: 11-17-2022 End: 11-17-2022 Emergency department patient visit Marc Goodman DO Work Phone: [facility] ED Comment on above: Left leg swelling (P rimary Dx) Start: 11-12-2022 ambulatory Moreno peterson MD Work Phone: Internal Medicine [facility] [place] Start: 11-10-2022 End: 11-10-2022 ambulatory [facility] Work Phone: Start: 11-10-2022 End: 11-10-2022 Departed Referred [facility] [address] Start: 11-06-2022 Telephone encounter Moreno Oates MD Work Phone: Family Practice Comment on above: Received Outside Med ical Records ([facility] portable x-ray service ([facility]) Chest x-ray 11/04/2022) Start: 10-10-2022 Telephone encounter Moreno Oates MD Work Phone: Family Practice Comment on above: Orders Start: 10-06-2022 Telephone encounter Moreno Oates MD Work Phone: Family Practice Comment on above: Received Outside Med ical Records ([facility] ([facility]) Labs) Start: 10-06-2022 End: 10-06-2022 Departed Referred [facility] [address] Start: 10-01-2022 Telephone encounter Moreno Oates MD Work Phone: Family Practice Comment on above: Refill Request Start: 09-24-2022 Telephone encounter Moreno Oates MD Work Phone: Family Practice Comment on above: Clinical Symptoms Start: 09-19-2022 Telephone encounter Moreno Oates MD Work Phone: Family Practice Comment on above: Medication Request ( [facility] ) Start: 09-08-2022 End: 09-08-2022 ambulatory [facility] Work Phone: Start: 09-08-2022 End: 09-08-2022 Departed Referred [facility] - [address] Start: 09-08-2022 Registered Referred [facility] 300 Start: 09-05-2022 Telephone encounter Moreno Oates MD Work Phone: [facility] Comment on above: Medication Request ( [facility] ) Start: 08-29-2022 Telephone encounter Moreno Oates MD Work Phone: [facility] Comment on above: Medication Request ( [facility] Oxycodone apap 5-325 mg 1 tab every 6 hours ) Start: 08-28-2022 Telephone encounter Moreno Oates MD Work Phone: [facility] Comment on above: Outside Lab Results ([facility]) Start: 08-28-2022 End: 08-28-2022 ambulatory [facility] Work Phone: Start: 08-28-2022 End: 08-28-2022 Departed Referred [facility] 300 Start: 08-28-2022 Registered Referred [facility] 300 Start: 08-11-2022 End: 08-11-2022 Patient encounter procedure Debbie Batista PA-C Work Phone: Orthopaedics Comment on above: Status post total le ft knee replacement (Primary Dx); S/P revision of total knee, right Start: 08-11-2022 End: 08-11-2022 ambulatory [facility] Work Phone: Start: 08-11-2022 End: 08-11-2022 Departed Referred [facility] - [address] Start: 08-08-2022 End: 08-08-2022 ambulatory [facility] Work Phone: Start: 08-08-2022 End: 08-08-2022 Departed Referred [facility] - [address] Start: 08-08-2022 Registered Referred [facility] - [address] Start: 07-30-2022 Telephone encounter Moreno Oates MD Work Phone: Family Practice Comment on above: Received Outside Med ical Records ([place] [facility] ) Start: 07-29-2022 [...] Practice Comment on above: Outside Lab Results ([facility] 07/14/22) Start: 07-14-2022 End: 07-14-2022 Departed Referred [facility] - [address] Start: 07-06-2022 ambulatory Moreno peterson MD Work Phone: Family Practice Start: 07-05-2022 Telephone encounter Moreno Oates MD Work Phone: Family Practice Comment on above: Patient Update ([facility] [place] 07/[facility]/22) Start: 06-25-2022 Refill Moreno peterson MD Work Phone: Family Practice Comment on above: Refill Request Start: 06-18-2022 Telephone encounter Moreno Oates MD Work Phone: Family Practice Comment on above: Orders ([facility]) Start: 06-12-2022 ambulatory UNKNOWN PROVIDER Facili ty:[facility] Start: 06-12-2022 End: 06-12-2022 Subsequent hospital visit by physician [facility] Radiology Comment on above: Pain due to internal orthopedic prosthetic devices, implants and grafts, initial encounter ([facility]) [T84.84XA] Start: 06-09-2022 End: 06-09-2022 ambulatory [facility] Work Phone: Start: 06-09-2022 End: 06-09-2022 Departed Referred [facility] - [address] Start: 06-09-2022 Registered Referred [facility] 300 Start: 05-22-2022 Telephone encounter Moreno Oates MD Work Phone: Family Practice Comment on above: Outside Labs Results ([facility]) Start: 05-22-2022 End: 05-22-2022 ambulatory [facility] Work Phone: Start: 05-22-2022 End: 05-22-2022 Departed Referred [facility] [address] Start: 05-22-2022 Registered Referred [facility] 300 Start: 05-21-2022 End: 05-21-2022 Orders Only Debbie Batista PA-C Work Phone: Orthopaedics Comment on above: Status post total le ft knee replacement (Primary Dx) Status post total le ft knee replacement [Z96.652] Start: 05-15-2022 End: 05-15-2022 ambulatory [facility] Work Phone: Start: 05-15-2022 End: 05-15-2022 Departed Referred [facility] [address] Start: 05-15-2022 Registered Referred [facility] [address] Start: 05-12-2022 Telephone encounter Moreno Oates MD Work Phone: Family Medicine Comment on above: Medication Request ( [facility] 05/12/2022 Oxycodone/apap) Start: 05-10-2022 End: 05-10-2022 ambulatory [facility] Work Phone: Start: 05-10-2022 End: 05-10-2022 Departed Referred [facility] [address] Start: 05-10-2022 [facility] [address] Start: 05-01-2022 End: 05-01-2022 ambulatory [facility] Work Phone: Start: 05-01-2022 End: 05-01-2022 [facility] Start: 04-14-2022 End: 04-14-2022 [facility] [address] Start: 03-24-2022 Telephone encounter Moreno Oates MD Work Phone: Family Practice Comment on above: medication orders ([facility]) Start: 03-19-2022 ambulatory Moreno Oates [facility] Start: 03-18-2022 Refill Moreno peterson MD Work Phone: Family Practice Comment on above: Opened In Error Orders (Mammogram or ders [facility] [place]) Start: 03-17-2022 Telephone encounter Moreno Oates MD Work Phone: Family Practice Comment on above: Diagnositic mammogra m and US orders Start: 03-11-2022 Telephone encounter Moreno Oates MD Work Phone: Family Practice Comment on above: Refill Request Start: 03-10-2022 Telephone encounter Moreno Oates MD Work Phone: Family Practice Comment on above: Orders ([facility] [place]) Outside Lab Results ([facility]) Start: 03-10-2022 End: 03-10-2022 Departed Referred [facility] [place] - [address] Start: 03-10-2022 Registered Referred [facility] [place] - [address] Start: 03-06-2022 Telephone encounter Moreno Oates MD Work Phone: Family Medicine [place] Comment on above: Refill Request (Futu re [...] Practice Comment on above: Outside Lab Results ([facility]) Start: 02-10-2022 End: 02-10-2022 ambulatory [facility] Work Phone: Start: 02-10-2022 End: 02-10-2022 Departed Referred [facility] - [address] Start: 02-05-2022 Telephone encounter Moreno Oates MD Work Phone: Family Practice Comment on above: Orders (Medication [facility] [place]) Start: 01-07-2022 Telephone encounter Moreno Oates MD Work Phone: Family Practice Comment on above: Refill Request Start: 01-06-2022 End: 01-06-2022 ambulatory [facility] Work Phone: Start: 01-06-2022 End: 01-06-2022 Departed Referred [facility] [place] - [address] Start: 01-02-2022 ambulatory Morenoadelaide Oates [facility] Start: 12-30-2021 Telephone encounter Moreno Oates MD Work Phone: Family Practice Comment on above: Orders (prescription request) Start: 12-27-2021 End: 12-27-2021 [facility] [place] [facility] [address] Start: 12-23-2021 Telephone encounter Moreno Oates MD Work Phone: Family Practice Comment on above: Orders (Controlled m edication request from [facility]) Orders (Pharmacy Rec ommendation [facility] [place]) Start: 12-09-2021 Telephone encounter Moreno Oates MD Work Phone: Family Practice Comment on above: Outside Lab Results ([facility]) Start: 12-09-2021 Registered Referred [facility] 300 Start: 12-03-2021 Refill Moreno peterson MD [...] medica tion refill) Start: 11-11-2021 Registered Referred [facility] 300 Start: 11-08-2021 End: 11-08-2021 Departed Referred [facility] 300 Start: 10-29-2021 Telephone encounter Moreno Oates MD Work Phone: Family [facility] Comment on above: Orders (prescription signed off by PCP and faxed to [facility] ) Start: 10-22-2021 Refill Moreno peterson MD [...] Comment on above: Outside Lab Results (from [facility]) Start: 10-07-2021 End: 10-07-2021 [facility] [place] [facility] [address] Start: 10-04-2021 Refill Moreno peterson MD Work Phone: Family [facility] Comment on above: Refill Request ([facility]) Start: 09-27-2021 Refill Moreno peterson MD Work Phone: Family [facility] Comment on above: Refill Request Start: 09-09-2021 End: 09-09-2021 [facility] [place] [facility] [address] Start: 09-09-2021 Registered Referred [facility] [place] - [address] Start: 08-27-2021 Telephone encounter Moreno Oates MD Work Phone: [facility] Comment on above: Orders ([facility] 08/26/2021) Start: 08-26-2021 Refill Moreno peterson MD Work Phone: [facility] Start: 08-08-2021 End: 08-08-2021 [facility] [place] [facility] [address] Start: 08-08-2021 Registered Referred [facility] [place] - [address] Start: 07-23-2021 End: 07-23-2021 Departed Referred [facility] [place] [facility] [address] Start: 07-23-2021 [facility] [place] [facility] [address] Start: 07-16-2021 End: 07-16-2021 [facility] [place] [facility] [address] Start: 07-16-2021 [facility] [place] [facility] [address] Start: 07-09-2021 End: 07-09-2021 [facility] [place] [facility] [address] Start: 07-09-2021 [facility] [place] [facility] [address] Start: 07-08-2021 Telephone encounter Moreno Oates MD Work Phone: [facility] Comment on above: Received Outside Med ical Records ([facility] 07/05/2021 signature) Start: 07-02-2021 End: 07-02-2021 Departed Referred [facility] - [address] Start: 07-02-2021 Registered Referred [facility] - [address] Start: 06-25-2021 End: 06-25-2021 Departed Referred [facility] - [address] Start: 06-25-2021 Registered Referred [facility] - [address] Start: 06-18-2021 End: 06-18-2021 Departed Referred [facility] - [address] Start: 06-18-2021 Registered Referred [facility] - [address] Start: 06-11-2021 End: 06-11-2021 Departed Referred [facility] - [address] Start: 06-04-2021 End: 06-04-2021 Departed Referred [facility] - [address] Start: 05-28-2021 Registered Referred [facility] - [address] Start: 01-15-2021 End: 01-15-2021 Emergency department patient visit Nehal Madden DO Work Phone: [facility] Comment on above: Chronic pain of righ t knee (Primary Dx) Start: 01-05-2021 End: 01-06-2021 Emergency department patient visit Erika Hudson MD Work Phone: [facility] Emergency Dept Start: 12-18-2020 End: 12-19-2020 Emergency department patient visit Jorge Mejia MD Work Phone: [facility] ED Comment on above: Cellulitis of right lower extremity (Primary Dx) Start: 01-27-2020 End: 02-03-2020 Evaluation and management of inpatient Alexandro Yasmin Ackerman Work Phone: [facility] Comment on above: Generalized weakness (Primary Dx); Hypokalemia; Chronic pain of right knee; Inability to ambulate due to knee; Misuse of prescription only drugs (HCC); Benzodiazepine dependence (HCC); Contusion of right knee, initial encounter Start: 11-04-2019 End: 11-04-2019 Evaluation and management of inpatient Sulaiman Ricks Work Phone: [facility] Comment on above: 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, initial encounter (HCC) (Primary Dx) Start: 10-03-2019 End: 10-25-2019 Evaluation and management of inpatient Luli Morris Work Phone: [facility] Comment on above: Intentional drug ove rdose, initial encounter (HCC) (Primary Dx); Acute hypoxemic respiratory failure (HCC); Leukocytosis, unspecified type Procedures Date Procedure Procedure Detail Performing Clinician Start: 07-12-2024 Comprehensive metabo lic 2000 panel - Serum [...] Start: 11-17-2022 Ct angiography chest w/contrast/noncontrast Marc Goodman DO Work Phone: Start: 11-17-2022 Dup-scan xtr veins unilateral/limited study Marc Goodman DO Work Phone: Start: 11-17-2022 Basic metabolic pane l calcium total Marc Goodman DO Work Phone: Start: 11-17-2022 Ecg routine ecg w/le ast 12 lds trcg only w/o i&r Marc Goodman DO Work Phone: Start: 10-06-2022 Comprehensive metabo [...] Phone: Start: 01-15-2021 Assay of lipase Nehal Chano DO Work Phone: Start: 01-15-2021 LACTATE, SEPSIS Nehal Madden DO Work Phone: Start: 01-15-2021 Ecg routine ecg w/le ast 12 lds w/i&r Nehal Madden DO Work Phone: Start: 01-06-2021 Urnls dip stick/tabl et rgnt auto w/o microscopy Kian Palomares PA Work Phone: Start: 01-05-2021 Cell count misc [...] MONREAL Work Phone: Start: 01-05-2021 LACTATE, SEPSIS Franci MONREAL Work Phone: Start: 01-05-2021 Radiologic exam [...] Start: 02-02-2020 MANUAL DIFFERENTIAL Jose De Jesus Goff Work Phone: Start: 02-01-2020 Bone &/joint [...] Iadna-dna/rna gi pth gn multiplex [facility]q [facility] Work Phone: Start: 01-28-2020 Inf agent det nuclei c acid clostridium amp probe [facility] Work Phone: Start: 01-28-2020 ADD ON LAB TEST Kiley Goff Work Phone: Start: 01-28-2020 Assay of magnesium Pram od [facility] Work Phone: Start: 01-28-2020 Blood count complete auto&auto difrntl wbc Tian [facility] Work Phone: Start: 01-28-2020 Culture bacterial bl ood aerobic w/id isolates Tian [facility] Work Phone: Start: 01-28-2020 MANUAL DIFFERENTIAL Pra mod [facility] Work Phone: Start: 01-27-2020 CULTURE, BLOOD 1 Tian [facility] Work Phone: Start: 01-27-2020 Drug screen class list a Lew Johnson Work Phone: Start: 01-27-2020 Urnls dip stick/tabl et rgnt auto w/o microscopy Lew Johnson Work Phone: Start: 01-27-2020 Assay of acetaminophen Alexandro B Lafountain Work Phone: Start: 01-27-2020 Assay of magnesium Ryan olas B [facility] Work Phone: Start: 01-27-2020 Assay of salicylate Chris holas B [facility] Work Phone: Start: 01-27-2020 Assay of troponin quantitative Alexandro B Lafountain Work Phone: Start: 01-27-2020 Blood count complete auto&auto difrntl wbc Alexandro B Lafountain Work Phone: Start: 01-27-2020 Comprehensive metabo lic panel Alexandro B Lafountain Work Phone: Start: 01-27-2020 Creatine kinase total N icholas B Lafountain Work Phone: Start: 01-27-2020 Ct head/brain w/o [...] Phone: Start: 11-04-2019 DIFFERENTIAL, BODY FLUID Pb A [employer] Work Phone: Start: 11-04-2019 Smr prim src gram/gi emsa stain bct fungi/cell Pb A [employer] Work Phone: Start: 11-04-2019 Cell count misc body fluids w/differential count Pb A [employer] Work Phone: Start: 11-04-2019 Crystal id light andrea roscopy edmar tiss/any fluid Pb A [employer] Work Phone: Start: 11-04-2019 Radiologic examinati on knee 3 views David N Jessy Work Phone: Start: 11-04-2019 Basic metabolic pane l calcium total David N Jessy Work Phone: Start: 11-04-2019 Blood count complete auto&auto difrntl wbc David N Jessy Work Phone: Start: 11-04-2019 C-reactive protein Steven a N Jessy Work Phone: Start: 11-04-2019 Prothrombin [...] Work Phone: Start: 10-20-2019 EEG REPORT Torin Salazar Work Phone: Start: 10-20-2019 Assay of [...] 10-20-2019 Radiologic exam ches t single view Carleneroor Romero Work Phone: Start: 10-20-2019 Gluc bld gluc mntr d ev cleared fda spec home use Luli Morris Work Phone: Start: 10-20-2019 COVID-19 Ruddy cadet Work Phone: Start: 10-19-2019 Gluc bld gluc mntr d ev cleared fda spec home use Max Bob Work Phone: Start: 10-19-2019 Basic metabolic pane l calcium total Masroor Romero Work Phone: Start: 10-19-2019 Blood count complete auto&auto difrntl wbc Masroor Romero Work Phone: Start: 10-19-2019 Hepatic function panel Masroor Romero Work Phone: Start: 10-19-2019 Gluc bld gluc mntr d ev cleared fda spec home use [employer] Work Phone: Start: 10-18-2019 Radiologic exam ches t single view Ruddy Corona Work Phone: Start: 10-18-2019 Basic metabolic pane l calcium total Masroor Romero Work Phone: Start: 10-18-2019 Blood count complete auto&auto difrntl wbc Masroor Romero Work Phone: Start: 10-18-2019 Hepatic function panel Masroor Romero Work Phone: Start: 10-18-2019 POCT ARTERIAL Luli farley Work Phone: Start: 10-18-2019 Gluc bld gluc mntr d ev cleared fda spec home use [employer] Work Phone: Start: 10-16-2019 Basic metabolic pane [...] 10-14-2019 Radiologic exam ches t single view Brockjohnathan Deleon Work Phone: Start: 10-14-2019 Acute hepatitis panel I johnathan Deleon Work Phone: Start: 10-14-2019 Assay of magnesium Ifte ronan Deleon Work Phone: Start: 10-14-2019 Assay of phosphorus inorganic Clinton Deleon Work Phone: Start: 10-14-2019 Blood count complete auto&auto difrntl wbc johnathan Deleon Work Phone: Start: 10-14-2019 Comprehensive metabo lic panel Clinton Deleon Work Phone: Start: 10-13-2019 Potassium serum plasma/whole blood johnathan Deleon Work Phone: Start: 10-13-2019 Radiologic exam ches t single view johnathan Deleon Work Phone: Start: 10-13-2019 Assay of magnesium Koffi Rodríguez [employer] Work Phone: Start: 10-13-2019 Assay of phosphorus inorganic Nica Rodríguez [employer] Work Phone: Start: 10-13-2019 Blood count complete auto&auto difrntl wbc Nica Sal Work Phone: Start: 10-13-2019 Comprehensive metabo lic panel Des Romero Work Phone: Start: 10-12-2019 Speech and language therapy regime Iftjohnathan Deleon Work Phone: Start: 10-12-2019 EXTUBATION Iftjohnathan Jones usain Work Phone: Start: 10-12-2019 Drug screen quantita tive vancomycin johnathan Deleon Work Phone: Start: 10-12-2019 POCT ARTERIAL Luli farley Work Phone: Start: 10-12-2019 Assay of magnesium Koffi patric A [employer] Work Phone: Start: 10-12-2019 Assay of phosphorus inorganic Nica Rodríguez [employer] Work Phone: Start: 10-12-2019 Blood count complete auto&auto difrntl wbc Nica Fariasch Work Phone: Start: 10-12-2019 Comprehensive metabo lic panel Masroor Romero Work Phone: Start: 10-12-2019 Radiologic exam ches t single view [employer]ain Work Phone: Start: 10-11-2019 Radiologic exam ches t single view [employer]ain Work Phone: Start: 10-11-2019 Assay of magnesium Koffi patric A [employer] Work Phone: Start: 10-11-2019 Assay of phosphorus inorganic Nica Rodríguez [employer] Work Phone: Start: 10-11-2019 Blood count complete auto&auto difrntl wbc Nica Rodríguez [employer] Work Phone: Start: 10-11-2019 Comprehensive metabo lic panel Carleneroor Romero Work Phone: Start: 10-11-2019 POCT ARTERIAL Rami Abbo ud Work Phone: Start: 10-10-2019 Radiologic exam ches t single view [employer] Work Phone: Start: 10-10-2019 POCT ARTERIAL Rami Abbo ud Work Phone: Start: 10-10-2019 Assay of magnesium Koffi Rodríguez [employer] Work Phone: Start: 10-10-2019 Assay of phosphorus inorganic Nica Rodríguez [employer] Work Phone: Start: 10-10-2019 Blood count complete auto&auto difrntl wbc Nica Rodríguez [employer] Work Phone: Start: 10-10-2019 Comprehensive metabo lic panel Masroor Romero Work Phone: Start: 10-09-2019 Smr prim src gram/gi emsa stain bct fungi/cell Masroor Romero Work Phone: Start: 10-09-2019 Virus centrifuge enh ncd id imfluor stain ea Masroor Romero Work Phone: Start: 10-09-2019 POCT ARTERIAL Luli farley Work Phone: Start: 10-09-2019 Blood count hemoglobin Nica Rodríguez [employer] Work Phone: Start: 10-09-2019 Radiologic exam ches t single view Des Romero Work Phone: Start: 10-09-2019 EXTUBATION Masroor Bob sadler Work Phone: Start: 10-09-2019 Basic metabolic pane l calcium total Rami Judy Work Phone: Start: 10-09-2019 Blood count hemoglobin Nica Rodríguez [employer] Work Phone: Start: 10-09-2019 POCT ARTERIAL Luli farley Work Phone: Start: 10-09-2019 Assay of magnesium Rami Judy Work Phone: Start: 10-09-2019 Assay of phosphorus inorganic Rami Judy Work Phone: Start: 10-09-2019 Basic metabolic pane l calcium total Rami Judy Work Phone: Start: 10-09-2019 Blood count complete auto&auto difrntl wbc Nica Rodríguez [employer] Work Phone: Start: 10-08-2019 Ecg routine ecg w/le ast 12 lds w/i&r Nica Rodríguez [employer] Work Phone: Start: 10-08-2019 Basic metabolic pane l calcium total Rami Judy Work Phone: Start: 10-08-2019 Blood count hemoglobin Nica Rodríguez [employer] Work Phone: Start: 10-08-2019 Echo tthrc r-t 2d w/wom-mode compl spec&colr d Rami Judy Work Phone: Start: 10-08-2019 Basic metabolic pane l calcium total Rami Judy Work Phone: Start: 10-08-2019 Blood count hemoglobin Nica Rodríguez [employer] Work Phone: Start: 10-08-2019 Radiologic exam ches t single view Des Romero Work Phone: Start: 10-08-2019 Ecg routine ecg w/le ast 12 lds w/i&r Nica A [employer] Work Phone: Start: 10-08-2019 POCT ARTERIAL Luli farley Work Phone: Start: 10-08-2019 Assay of magnesium Koffi patric A [employer] Work Phone: Start: 10-08-2019 Assay of phosphorus inorganic Nica A [employer] Work Phone: Start: 10-08-2019 Blood count complete auto&auto difrntl wbc Nica Rodríguez [employer] Work Phone: Start: 10-07-2019 Basic metabolic pane l calcium total Rami Judy Work Phone: Start: 10-07-2019 Ecg routine ecg w/le ast 12 lds w/i&r Nica A [employer] Work Phone: Start: 10-07-2019 Basic metabolic pane l calcium total Rami Judy Work Phone: Start: 10-07-2019 Ecg routine ecg w/le ast 12 lds w/i&r Nica A [employer] Work Phone: Start: 10-07-2019 POCT ARTERIAL Luli farley Work Phone: Start: 10-07-2019 Assay of magnesium Koffi patric A [employer] Work Phone: Start: 10-07-2019 Assay of phosphorus inorganic Nica Rodríguez [employer] Work Phone: Start: 10-07-2019 Basic metabolic pane l calcium total Nica A [employer] Work Phone: Start: 10-07-2019 Blood count complete auto&auto difrntl wbc Nica A [employer] Work Phone: Start: 10-06-2019 Ecg routine ecg w/le ast 12 lds w/i&r Nica A [employer] Work Phone: Start: 10-06-2019 Basic metabolic pane l calcium total Rami Judy Work Phone: Start: 10-06-2019 POCT ARTERIAL Luli Jones [employer] Work Phone: Start: 10-06-2019 Smr prim src gram/gi emsa stain bct fungi/cell Rami Judy Work Phone: Start: 10-06-2019 Virus centrifuge enh ncd id imfluor stain ea Rami Judy Work Phone: Start: 10-06-2019 Basic metabolic pane l calcium total Rami Judy Work Phone: Start: 10-06-2019 Ecg routine ecg w/le ast 12 lds w/i&r Nica Rodríguez [employer] Work Phone: Start: 10-06-2019 POCT ARTERIAL Luli Jones [employer] Work Phone: Start: 10-06-2019 ADD ON LAB TEST Nathalia Rodríguez [employer] Work Phone: Start: 10-06-2019 Assay of magnesium Koffi Rodríguez [employer] Work Phone: Start: 10-06-2019 Blood count complete auto&auto difrntl wbc Nica Rodríguez [employer] Work Phone: Start: 10-06-2019 MANUAL DIFFERENTIAL Ila yazmin Rodríguez [employer] Work Phone: Start: 10-06-2019 RENAL + LIVER PROF Koffi Rodríguez [employer] Work Phone: Start: 10-05-2019 Ecg routine ecg w/le ast 12 lds w/i&r Nica Rodríguez [employer] Work Phone: Start: 10-05-2019 Basic metabolic pane [...] w/le ast 12 lds w/i&r Nica Rodríguez [employer] Work Phone: Start: 10-05-2019 Ct angiography chest w/contrast/noncontrast Rami Judy Work Phone: Start: 10-05-2019 POCT ARTERIAL Luli Jones deborah Work Phone: Start: 10-05-2019 Radiologic exam ches t single view Nica Rodríguez [employer] Work Phone: Start: 10-05-2019 Calcium ionized Nathalia Rodríguez [employer] Work Phone: Start: 10-05-2019 ADD ON LAB TEST Mary Janend er Marcos [employer] Work Phone: Start: 10-05-2019 Assay of magnesium Koffi patric Rodríguez [employer] Work Phone: Start: 10-05-2019 Assay of phosphorus inorganic Nica Rodríguez [employer] Work Phone: Start: 10-05-2019 Basic metabolic pane l calcium total Nica Rodríguez [employer] Work Phone: Start: 10-05-2019 Blood count complete auto&auto difrntl wbc Nica Rodríguez [employer] Work Phone: Start: 10-05-2019 MANUAL DIFFERENTIAL Ila yazmin A [employer] Work Phone: Start: 10-04-2019 Ecg routine ecg w/le ast 12 lds w/i&r Nica Rodríguez [employer] Work Phone: Start: 10-04-2019 Basic metabolic pane l calcium total Rami Judy Work Phone: Start: 10-04-2019 POCT ARTERIAL Luli Jones deborah Work Phone: Start: 10-04-2019 Procalcitonin (pct) Teo i Judy Work Phone: Start: 10-04-2019 Basic metabolic pane l calcium total Rami Judy Work Phone: Start: 10-04-2019 Ecg routine ecg w/le ast 12 lds w/i&r Nica Rodríguez [employer] Work Phone: Start: 10-04-2019 POCT ARTERIAL Luli farley Work Phone: Start: 10-04-2019 ADD ON LAB TEST Nathalia justina Rodríguez [employer] Work Phone: Start: 10-04-2019 Assay of magnesium Rami Judy Work Phone: Start: 10-04-2019 Assay of phosphorus inorganic Rami Judy Work Phone: Start: 10-04-2019 BASIC METABOLIC PANE L W/ REFLEX TO MG FOR LOW K Rami Judy Work Phone: Start: 10-04-2019 Blood count complete auto&auto difrntl wbc Rami Judy Work Phone: Start: 10-03-2019 Ecg routine ecg w/le ast 12 lds w/i&r Nica Rodríguez [employer] Work Phone: Start: 10-03-2019 Basic metabolic pane l calcium total Rami Judy Work Phone: Start: 10-03-2019 Culture bacterial bl ood aerobic w/id isolates Luli Lincoln Good Work Phone: Start: 10-03-2019 POCT ARTERIAL Rami Abbo ud Work Phone: Start: 10-03-2019 COVID-19 Rami Abbou d Work Phone: Start: 10-03-2019 Ecg routine ecg w/le ast 12 lds w/i&r Rami Judy Work Phone: Start: 10-03-2019 Assay of acetaminophen Rami Judy Work Phone: Start: 10-03-2019 Basic metabolic pane l calcium total Rami Judy Work Phone: Start: 10-03-2019 POCT ARTERIAL Rami Abbo ud Work Phone: Start: 10-03-2019 Drug screen class list a Flavio Good Work Phone: Start: 10-03-2019 Urnls dip stick/tabl et rgnt auto w/o microscopy Luli Lincoln [employer] Phone: Start: 10-03-2019 Assay of acetaminophen Luli Lincoln [employer] Work Phone: Start: 10-03-2019 Assay of ethanol Luli Lincoln [employer] Work Phone: Start: 10-03-2019 Assay of lactate Luli Lincoln [place] Phone: Start: 10-03-2019 Assay of lipase Luli Lincoln [employer] Work Phone: Start: 10-03-2019 Assay of magnesium Saurabh susie Lincoln [employer] Work Phone: Start: 10-03-2019 Assay of salicylate Temo id Lat[place] [employer] Work Phone: Start: 10-03-2019 Assay of troponin quantitative Luli Lincoln [place] Phone: Start: 10-03-2019 Blood count complete auto&auto difrntl wbc Luli Lincoln [employer] Work Phone: Start: 10-03-2019 Comprehensive metabo lic panel Luli Lincoln [employer] Work Phone: Start: 10-03-2019 Creatine kinase total D avisusie Lincoln [place] Phone: Start: 10-03-2019 CULTURE, BLOOD 1 Luli Lincoln [employer] Phone: Start: 10-03-2019 Natriuretic peptide Temo Lincoln [employer] Work Phone: Start: 10-03-2019 Ct cervical spine w/ o contrast material Luli Lincoln [employer] Work Phone: Start: 10-03-2019 Ct head/brain w/o co ntrast material Luli Lincoln [place] Phone: Start: 10-03-2019 Radiologic exam ches t single view Luli Lincoln [employer] Phone: Start: 10-03-2019 Ecg routine ecg w/le ast 12 lds w/i&r Luli Lincoln [place] Phone: Start: 10-03-2019 Gluc bld gluc mntr d ev cleared fda spec home use Unknown Provider Result Start: 10-03-2019 Intubation endotrach eal emergency procedure Luli Morris Work Phone: Start: 11-01-2018 Adult depression scr eening assessment Moreno Oates MD Work Phone: Plan of Treatment Date Care Activity Detail Author Start: 2031 RSV Vaccine (1 - 1-d ose 75+ series) RSV Vaccine (1 - 1-dose 75+ series) [facility] Start: 07-12-2027 Diabetes Screening Diabetes Screenin g [facility] Start: 04-11-2027 Diabetes Screening Diabetes Screenin g [facility] Start: 12-06-2026 DTaP/Tdap/Td vaccine (2 - Td or Tdap) DTaP/Tdap/Td vaccine (2 - Td or Tdap) [facility] Work Phone: Start: 12-06-2026 DTaP/Tdap/Td vaccine (2 - Td) DTaP/Tdap/Td vaccine (2 - Td) [place], [place] Start: 12-06-2026 DTaP/Tdap/Td Vaccine s (2 - Td or Tdap) DTaP/Tdap/Td Vaccines (2 - Td or Tdap) [facility] Start: 12-06-2026 Urine microalbumin profile [facility] Start: 11-08-2026 Diabetes Screening Diabetes Screenin g [facility] Start: 06-08-2026 Diabetes Screening Diabetes Screenin g [facility] Start: 05-11-2026 Diabetes Screening Diabetes Screenin g [facility] Start: 03-09-2026 Diabetes Screening Diabetes Screenin g [facility] Start: 12-30-2025 DIABETES SCREEN DIABETES SCREEN [facility] Start: 12-30-2025 Diabetes Screening Diabetes Screenin g [facility] Start: 11-10-2025 DIABETES SCREEN DIABETES SCREEN [facility] Start: 10-06-2025 DIABETES SCREEN DIABETES SCREEN [facility] Start: 04-14-2025 DIABETES SCREEN DIABETES SCREEN [facility] Start: 01-30-2025 Influenza vaccination [facility] Start: 06-01-2024 Advance Directive Discussion Advance Directive Discussion [facility] Start: 06-01-2024 Medicare Advantage Annual Wellness Visit Medicare Advantage Annual Wellness Visit [facility] Start: 01-31-2024 Covid-19 Vaccine (3 - 2024-25 season) Covid-19 Vaccine ( season) [facility] Start: 01-31-2024 Influenza vaccination [facility] Start: 01-07-2024 DIABETES SCREEN DIABETES SCREEN [facility] Start: 06-01-2023 Advance Directive Discussion Advance Directive Discussion [facility] Start: 06-01-2023 Behavioral Health Screening Behavioral Health Screening [facility] Start: 06-01-2023 Depression Assessment Depression Ass essment [facility] Start: 01-30-2023 Covid-19 Vaccine ( season) Covid-19 Vaccine ( season) [facility] Start: 01-30-2023 Influenza vaccination [facility] Start: 06-01-2022 ADVANCE DIRECTIVE DISCUSSION ADVANCE DIRECTIVE DISCUSSION [facility] Start: 06-01-2022 DEPRESSION ASSESSMENT DEPRESSION ASS ESSMENT [facility] Start: 01-30-2022 Influenza vaccination [facility] Start: 06-01-2021 ADVANCE DIRECTIVE DISCUSSION ADVANCE DIRECTIVE DISCUSSION [facility] Start: 06-01-2021 DEPRESSION ASSESSMENT DEPRESSION ASS ESSMENT [facility] Start: 2021 BONE DENSITY BONE DENSITY [facility] Start: 2021 Bone Density Screening Bone Density Screening [facility] Start: 2021 Pneumococcal Vaccine : 65+ (1 of 1 - PCV) Pneumococcal Vaccine: 65+ (1 of 1 - PCV) [facility] Start: 2021 PNEUMOVAX AGE 65 AND OVER WITH 5YR LOOKBACK (#1) PNEUMOVAX AGE 65 AND OVER WITH 5YR LOOKBACK (#1) [facility] Start: 2021 Screening for osteoporosis Bone Density Screening [facility] Start: 01-30-2021 Influenza vaccination [facility] Start: 12-27-2020 End: 12-27-2020 Patient encounter procedure 12/27/2020 Office Visit Urology Zoila Gallagher, DAGOBERTO - [employer] [address] [place] [id number] [phone] [facility] [place] Start: 12-11-2020 ANNUAL PCP TEAM TOBACCO SAMPLE PULLER CHRIS DISEASE VISIT ANNUAL PCP TEAM CHRONIC DISEASE VISIT [facility] Start: 06-27-2021 COVID-19 VACCINE (3 - Booster for Pfizer series) COVID-19 VACCINE (3 - Booster for Pfizer series) [facility] Start: 10-23-2020 Creatinine measurement Creatinine mo nitoring [place], [place] Start: 10-23-2020 Potassium monitoring Potassium monit oring [place] Start: 08-22-2020 COVID-19 VACCINE (3 - Booster for Pfizer series) COVID-19 VACCINE (3 - Booster for Pfizer series) [facility] Start: 08-22-2020 COVID-19 VACCINE (3 - Pfizer series) COVID-19 VACCINE (3 - Pfizer series) [facility] Start: 01-31-2020 Influenza vaccination M [place] Start: 12-31-2019 BP CONTROLLED (<130/80) BP CONTROLLE D (<130/80) [facility] Start: 11-02-2019 Adult depression screening assessment DEPRESSION SCREENING [facility] Start: 06-05-2017 Screening for malign ant neoplasm of breast Breast cancer screen [place], [place] Start: 2016 RSV Vaccine (1 - 1-d ose 60+ series) RSV Vaccine (1 - 1-dose 60+ series) [facility] Start: 2006 Pneumococcal Vaccine : 50+ (1 of 1 - PCV) Pneumococcal Vaccine: 50+ (1 of 1 - PCV) [facility] Start: 2006 Screening for malign ant neoplasm of colon Colon cancer screen colonoscopy [place], [place] Start: 2006 Shingles Vaccine (1 of 2) Shingles Vaccine (1 of 2) [place] Start: 2006 SHINGRIX VACCINE (1 of 2) SHINGRIX VACCINE (1 of 2) [facility] Start: 2006 Zoster Vaccines (1 of 2) Zoste r Vaccines (1 of 2) [facility] Start: 2001 COLOGUARD (FIT-DNA) COLOGUARD (FIT-D NA) [facility] Start: 2001 Colonoscopy COLONOSCOPY [facility] Start: 2001 COLORECTAL CANCER SCREENING COLORECTAL CANCER SCREENING [facility] Start: [address] COLONOGRAPHY [facility] Start: 2001 FECAL OCCULT BLOOD FECAL OCCULT BLOO D [facility] Start: 2001 Lipid 1996 panel - S alfonzo or Plasma Lipid Screening [facility] Start: 2001 Lipid panel Lipid Screening [facility] Start: 2001 LIPID SCREEN LIPID SCREEN [facility] Start: 2001 Screening for malign ant neoplasm of colon [facility] Start: 2001 SIGMOIDOSCOPY SIGMOIDOSCOPY [facility] Start: 1996 Mammography [facility] Start: 1996 Screening for malign ant neoplasm of breast [facility] Start: 1974 Anxiety Screening Anxiety Screening [facility] Start: 1974 Depression Screening Depression Scre ening [facility] Start: 1974 Diabetes mellitus screening Diabetes Screening [facility] Start: 1974 HIV SCREENING HIV SCREENING [facility] Start: 1968 COVID-19 Vaccine (1) COVID-19 Vaccin e (1) [facility] Work Phone: Start: 1968 Depression Screening Depression Scre ening [facility] Start: 1962 Pneumococcal 0-64 ye ars Vaccine (1 of 1 - PPSV23) Pneumococcal 0-64 years Vaccine (1 of 1 - PPSV23) [place] Start: 1962 Pneumococcal 0-64 ye ars Vaccine (1 of 2 - PPSV23) Pneumococcal 0-64 years Vaccine (1 of 2 - PPSV23) [facility] Work Phone: Start: 1962 Pneumococcal Vaccine : 65+ (1 - PCV) Pneumococcal Vaccine: 65+ (1 - PCV) [facility] Start: 1962 Pneumococcal Vaccine : 65+ (1 of 2 - PCV) Pneumococcal Vaccine: 65+ (1 of 2 - PCV) [facility] Start: 1962 Pneumococcal Vaccine : 65+ Years (1 - PCV) Pneumococcal Vaccine: 65+ Years (1 - PCV) [facility] Start: 1962 PNEUMOCOCCAL: 65+ (1 - PCV) PNEUMOCOCCAL: 65+ (1 - PCV) [facility] Start: 1956 Lipid panel Lipid Panel [facility] Start: 1956 Screening for malign ant neoplasm of colon [facility] Start: 1956 Screening for osteoporosis Bone Density Scan [facility] Acapella Acapella Respira tory Care Routine Daily until discontinued starting 10/25/2019 [facility], [place] Comment on above: Daily until disconti nued starting 10/25/2019 Basic metabolic 2000 panel [facility], [place] Comment on above: Daily until disconti nued starting 01/30/2020, 4 completed Daily until disconti nued starting 10/15/2019, 9 completed End: 11-05-2019 Basic Metabolic Panel w/ Reflex to MG Basic Metabolic Panel w/ Reflex to MG Lab Routine Tomorrow AM for 1 Occurrences starting 11/05/2019 until 11/05/2019 [facility], [place] Comment on above: Tomorrow AM for 1 Oc currences starting 11/05/2019 until 11/05/2019 BIPAP BIPAP Respirator y Care Routine Every 4hr until discontinued starting 10/24/2019 [facility], [place] Comment on above: Every 4hr until disc ontinued starting 10/24/2019 End: 01-15-2021 Blood gas, venous Blood gas, venous Lab STAT One Time for 1 Occurrences starting 01/15/2021 until 01/15/2021 [employer] Phone: Comment on above: One Time for 1 Occur rences starting 01/15/2021 until 01/15/2021 Calcium, Ionized Calcium, Ionize d Lab Routine Daily until discontinued starting 10/22/2019, 4 completed [facility], [place] Comment on above: Daily until disconti nued starting 10/22/2019, 4 completed End: 11-05-2019 CBC CBC Lab Routine Tomorrow AM for 1 Occurrences starting 11/05/2019 until 11/05/2019 [facility], [place] Comment on above: Tomorrow AM for 1 Oc currences starting 11/05/2019 until 11/05/2019 CBC Auto Differential [facility], [place] Comment on above: Daily until disconti nued starting 01/30/2020, 4 completed Daily until disconti nued starting 10/15/2019, 9 completed End: 10-03-2019 COVID-19 COVID-19 Lab Routine Once for 1 Occurrences starting 10/03/2019 until 10/03/2019 [facility], [place] Comment on above: Once for 1 Occurrenc es starting 10/03/2019 until 10/03/2019 COVID-19 COVID-19 Lab Rou carlos 10/03/2019 6:06 PM EDT [place] End: 01-31-2020 CRP [Mass/Vol] C-Reactive Protein Lab Add-On One Time for 1 Occurrences starting 01/31/2020 until 01/31/2020 [place] Comment on above: One Time for 1 Occur rences starting 01/31/2020 until 01/31/2020 End: 06-12-2022 Ct lower extremity w/o contrast material [facility] Work Phone: Comment on above: 1 Occurrences starti ng 06/12/2022 until 06/12/2022 End: 11-04-2019 Culture, Anaerobic and Aerobic Culture, Anaerobic and Aerobic Microbiology STAT One Time for 1 Occurrences starting 11/04/2019 until 11/04/2019 [place] Comment on above: One Time for 1 Occur rences starting 11/04/2019 until 11/04/2019 Culture, Anaerobic a nd Aerobic [place] End: 01-05-2021 Culture, Anaerobic and Aerobic Culture, Anaerobic and Aerobic Microbiology STAT One Time for 1 Occurrences starting 01/05/2021 until 01/05/2021 [facility] Work Phone: Comment on above: One Time for 1 Occur rences starting 01/05/2021 until 01/05/2021 End: 11-04-2019 Culture, Blood 1 Culture, Blood 1 Microbiology STAT One Time for 1 Occurrences starting 11/04/2019 until 11/04/2019 [place] Comment on above: One Time for [...] for 1 Occurrences starting 11/04/2019 until 11/04/2019 [facility] [place], [place] Comment on above: One Time for 1 Occur rences starting 11/04/2019 until 11/04/2019 End: 12-18-2020 Culture, Blood 2 Culture, Blood 2 Microbiology STAT One Time for 1 Occurrences starting 12/18/2020 until 12/18/2020 [facility] Work Phone: Comment on above: One Time for 1 Occur rences starting 12/18/2020 until 12/18/2020 Culture, Blood 2 [facility] Work Phone: End: 01-05-2021 Culture, Blood 2 Culture, Blood 2 Microbiology STAT One Time for 1 Occurrences starting 01/05/2021 until 01/05/2021 [facility] Work Phone: Comment on above: One Time for 1 Occur rences starting 01/05/2021 until 01/05/2021 End: 01-15-2021 Culture, Blood 2 Culture, Blood 2 Microbiology STAT One Time for 1 Occurrences starting 01/15/2021 until 01/15/2021 [facility] Work Phone: Comment on above: One Time for 1 Occur rences starting 01/15/2021 until 01/15/2021 End: 04-16-2023 Diagnostic mammography computer-aided detcj bi AMANDA DIAGNOSTIC BILAT Radiology Routine Breast pain, left 1 Occurrences starting 03/17/2022 until 04/16/2023 [facility] Work Phone: Comment on above: 1 Occurrences starti ng 03/17/2022 until 04/16/2023 ECG 12 lead ECG 12 lead CV E CG STAT 11/17/2022 9:13 AM EDT [employer] Work Phone: EKG 12 Lead [facility] [place] Comment on above: As Needed until disc ontinued starting 10/08/2019 Hepatic Function Panel Hepatic F unction Panel Lab Routine Daily until discontinued starting 10/15/2019, 9 [facility] Comment on above: Daily until disconti nued starting 10/15/2019, 9 completed End: 10-25-2019 Home O2 eval (desaturation screen) Home O2 eval (desaturation screen) Respiratory Care Routine One Time for 1 Occurrences starting 10/25/2019 until 10/25/2019 [facility] Comment on above: One Time for 1 Occur rences starting 10/25/2019 until 10/25/2019 Initiate Oxygen Ther apy Protocol [facility] Comment on above: Daily until disconti nued starting 11/04/2019 Daily until disconti nued starting 10/03/2019 End: 01-05-2021 Initiate Sepsis Narrator Initiate Sepsis Narrator Respiratory Care STAT Once for 1 Occurrences starting 01/05/2021 until 01/05/2021 [facility] Work Phone: Comment on above: Once [...] Daily until discontinued starting 10/22/2019, 4 [facility] Comment on above: Daily until disconti nued starting 10/22/2019, 4 completed End: 12-12-2023 AMANDA SCREENING AMANDA SCREENING Radiology Routine Encounter for screening mammogram for breast cancer 1 Occurrences starting 11/12/2022 until 12/12/2023 [facility] Work Phone: Comment on above: 1 [...] EDT [facility] Work Phone: Oxygen therapy [[facility]] [place], [place] Comment on above: Daily until disconti nued starting 01/27/2020 Daily until disconti nued starting 01/05/2021 Daily until disconti nued starting 01/15/2021 End: 10-04-2019 PBP2A TEST FOR S. AUREUS PBP2A TEST FOR S. AUREUS Lab Routine Once for 1 Occurrences starting 10/04/2019 until 10/04/2019 [place] Comment on above: Once for 1 Occurrenc es starting 10/04/2019 until 10/04/2019 End: 10-09-2019 PBP2A TEST FOR S. AUREUS PBP2A TEST FOR S. AUREUS Lab Routine Once for 1 Occurrences starting 10/09/2019 until 10/09/2019 [place] Comment on above: Once for 1 Occurrenc es starting 10/09/2019 until 10/09/2019 PBP2A TEST FOR S. AUREUS [place], [place] Phosphate [Mass/Vol] Phosphorus Lab Routine Daily until discontinued starting 10/22/2019, 4 completed [place] Comment on above: Daily until disconti nued starting 10/22/2019, 4 completed End: 10-03-2019 Procalcitonin Procalcitonin Lab Routine One Time for 1 Occurrences starting 10/03/2019 until 10/03/2019 [facility] Comment on above: One Time for 1 Occur rences starting 10/03/2019 until 10/03/2019 [facility]calcitonin [facility] Comment on above: Q48H until discontin ued starting 01/05/2021, 1 completed Q48H until discontin ued starting 01/15/2021, 1 completed End: 01-31-2020 Sedimentation Rate Sedimentation Rate Lab Add-On One Time for 1 Occurrences starting 01/31/2020 until 01/31/2020 [facility] Comment on above: One Time for 1 Occur rences starting 01/31/2020 until 01/31/2020 [facility] Comment on above: Daily until disconti nued [...] left 1 Occurrences starting 03/17/2022 until 04/16/2023 [facility] Work Phone: Comment on above: 1 Occurrences starti ng 03/17/2022 until 04/16/2023 End: 01-30-2020 Wound ostomy eval Wound ostomy eval Wound Ostomy Routine One Time for 1 Occurrences starting 01/30/2020 until 01/30/2020 [facility] Comment on above: One Time for 1 Occur rences starting 01/30/2020 until 01/30/2020 [facility] Immunizations Immunization Date Immunization Notes Care Provider Laine aceves 03-25-2018 influenza, injectabl e, quadrivalent, preservative free Moreno Oates MD Work Phone: [facility] 03-25-2018 influenza virus vacc ine, unspecified formulation Marc Goodman DO Work Phone: [facility] 01-29-2017 influenza, injectabl e, quadrivalent, contains preservative Moreno Oates MD Work Phone: [facility] 01-11-2017 influenza, injectabl e, quadrivalent, preservative free Moreno Oates MD Work Phone: [facility] 12-06-2016 tetanus toxoid, redu milton diphtheria toxoid, and acellular pertussis vaccine, adsorbed [facility] 03-23-2016 influenza, injectabl e, quadrivalent, preservative free Moreno Oates MD Work Phone: [facility] 02-15-2016 Influenza Vaccine, unspecified formulation [place] 02-15-2016 influenza, injectabl e, quadrivalent, preservative free Moreno Oates MD Work Phone: [facility] 02-15-2016 influenza, seasonal, injectable Moreno Oates MD Work Phone: [facility] 03-24-2015 influenza nasal, unspecified formulation Moreno Oates MD Work Phone: [facility] 03-24-2015 influenza virus vacc ine, unspecified formulation [facility] 03-24-2015 influenza, seasonal, injectable, preservative free Moreno Oates MD Work Phone: [facility] 04-04-2009 novel Influenza-H1N1 -09, live virus for nasal administration Moreno Oates MD Work Phone: [facility] Payers Date Payer Category Payer Self-pay [id number] 2021 Private Health Insurance 2021 Unknown [id number] 2021 Medicare MEDICARE MEDICAR E A AND B [id number] 2021-[facility] [phone] [place] [address] Medicare [id number] 2021 Medicare MEDICARE MEDICAR E A AND B [id number] 2021-Present [phone] [address] [address] [place] [address] Medicare [id number] 2019 Medicaid MEDICAID [facility] xxxxxxxxxxxx 2019-Present [phone] [address] [place] [address] xxxxxxxxxxxx [id number] 2018 Medicaid [id number] 2018 Medicaid MEDICAID [facility] MEDICAID [id number] 2018-Present [phone] [address] [place] [address] Medicaid [id number] 2018 Medicaid [id number] 2018 Unknown [id number] 1959 Unknown [id number] 1955 Unknown [id number] 1955 Unknown [id number] .[id number] 1955 Unknown [id number] .598 Unknown [id number] .462 Unknown [id number] [id number] .462 Unknown [id number] 2.16.840.1.303029.3.579.2 .462 Unknown [id number] [id number] .462 Unknown [id number] [id number] .462 Unknown [id number] [id number] .462 Unknown [id number] [id number] .462 Unknown [id number] [id number] .462 Unknown [id number] 2.16.840.1.622483.3.579.2 .462 Unknown [id number] 2.16.840.1.003701.3.579.2 .462 Unknown [id number] [id number] .462 Unknown [id number] .462 Social History Date Type Detail Facility Start: 11-04-2019 End: 01-29-2020 Tobacco smoking status NHIS Former smoker [place], [place] Start: 06-01-1968 History of tobacco use Cigarette Smo ker [place] Start: 11-04-2019 End: 06-16-2022 Cigarettes smoked current (pack per day) - Reported [facility] Work Phone: Start: 11-04-2019 End: 12-21-2020 Alcohol intake Current non-drinker of alcohol (finding) [place], [place] Start: 1955 Sex Assigned At Not on file [place], [place] Exposure to SARS-CoV -2 (event) Unable to assess [employer] Start: 04-17-2017 End: 01-29-2020 Tobacco use and exposure Never used [employer] JAIDA CORCORAN Exposure to SARS-CoV -2 (event) Not sure Annie UltheraJAIDA BAEZ Start: 06-01-1968 End: 10-23-2019 Tobacco smoking status NHIS Current every day smoker [facility] Start: 11-05-2019 History SDOH Financial 4 [facility] Start: 11-05-2019 History SDOH Food Worry 2 [facility] Start: 1955 Sex Assigned At Female [facility] Start: 05-20-2022 End: 06-16-2022 Tobacco use panel [facility] Work Phone: National Score (1-10 0), lower number is lower risk 86 [facility] How hard is it for y ou to pay for the very basics like food, housing, medical care, and heating Not very hard [facility] Work Phone: (I/We) worried wheadam er (my/our) food would run out before (I/we) got money to buy more. Sometimes true [facility] Work Phone: Tobacco smoking stat us NHIS Unknown if ever smoked [facility] Work Phone: Start: 09-02-2024 Sex Female (finding) [facility] Medical Equipment Procedure Code Equipment Code Equipment Origin al Text Equipment Identifier Dates Block Gmrs Small 10mm Augmentation Femoral Distal - [id number] Start: 03-19-2018 Cement Simplex P Bone Radiopaque Full Dose Sterile - [id number] Start: 06-06-2016 Comment on above: Description: simplex p bone cement Cement Simplex P Bone Radiopaque Full Dose Sterile - [id number] Start: 01-28-2017 Comment on above: Description: simplex p bone cement Cement Simplex P Tobramycin Bone Full Dose Radiopaque Preblend Sterile - [id number] Start: 03-19-2018 Vob-Qb-C-Kind Im plant - [id number] Start: 07-06-2017 Comment on above: Description: cancell ous screw Component Gmrs Polyethylene Femoral Pack Crosslink Knee - [id number] Start: 03-19-2018 Stem Kinemax Clyde r 80mm Femoral Cement Knee - [id number] Start: 03-19-2018 Extension Kinema x Xs Cocr 40mm Stem Cemented Knee Femoral - [id number] Start: 03-19-2018 Component Triath rafiq 5 Femoral Cemented Posterior Stabilize Knee Right - [id number] Start: 06-06-2016 Insert Triathlon 6 X3 13mm Tibial Posterior Stabilized Bearing Knee - [id number] Start: 06-06-2016 Component Triath rafiq 5 Femoral Cemented Posterior Stabilize Knee Left - [id number] Start: 01-28-2017 Comment on above: Description: triathl on posterior stabilized femoral Insert Triathlon 5 X3 11mm Tibial Posterior Stabilized Bearing Knee - [id number] Start: 01-28-2017 Comment on above: Description: triathl on tibial bearing insert - ps Insert Triathlon 6 X3 16mm Tibial Posterior Stabilized Bearing Knee - [id number] Start: 04-20-2017 Comment on above: Description: Tibial Bearing Insert-PS Insert Triathlon 6 X3 19mm Tibial Posterior Stabilized Bearing Knee - [id number] Start: 07-06-2017 Comment on above: Description: triathl on X3 tibial bearing insert - ps Restrictor Mediu m [place] Cement Disposable Director Of Counterintelligence Distal - [id number] Start: 03-19-2018 Restrictor Mediu m [place] Cement Disposable Director Of Counterintelligence Distal - [id number] Start: 03-19-2018 Component Xs Sma ll Medium Tibial Rotate Hinge Knee - [id number] Start: 03-19-2018 Axle Femoral Mod ular Rotate Hinge Knee - [id number]_imp Start: 03-19-2018 Wedge Duracon S2 Full 10mm Tibial Revision Knee - [id number] Start: 03-19-2018 Insert Gmrs Thk1 3mm S1 S2 Tibial Modular Rotate Hinge Proximal - [id number]_imp Start: 03-19-2018 [place] Femoral Modular Rotate Hinge Knee - [id number] Start: 11-06-2019 Insert Gmrs Neut ral Bumper Modular Rotate Hinge Knee Proximal - [id number] Start: 11-06-2019 Sleeve Tibial Mo dular Rotate Hinge Knee - [id number] Start: 11-06-2019 Insert Gmrs Thk1 3mm S1 S2 Tibial Modular Rotate Hinge Proximal - [id number] Start: 11-06-2019 Axle Femoral Mod ular Rotate Hinge Knee - [id number] _imp Start: 11-06-2019 Component Xs Sma ll Medium Tibial Rotate Hinge Knee - [id number] Start: 11-06-2019 Bushing Femoral Modular Rotate Hinge Knee - [id number] _imp Start: 11-06-2019 [place]ushing Femoral Modular Rotate Hinge Knee - [id number] Start: 12-19-2020 [place]ushing Femoral Modular Rotate Hinge Knee - [id number] Start: 12-19-2020 Component Xs Sma ll Medium Tibial Rotate Hinge Knee - [id number] Start: 12-19-2020 Insert Gmrs Thk1 3mm S1 S2 Tibial Modular Rotate Hinge Proximal - [id number]_imp Start: 12-19-2020 Sleeve Tibial Mo dular Rotate Hinge Knee - [id number] Start: 12-19-2020 Insert Gmrs Neut ral Bumper Modular Rotate Hinge Knee Proximal - [id number] Start: 12-19-2020 Axle Femoral Mod ular Rotate Hinge Knee - [id number] Start: 12-19-2020 Component Triath rafiq 32mm Asymmetric X3 10mm Patellar Knee - [id number] Start: 06-06-2016 Component Triath rafiq 32mm Asymmetric X3 10mm Patellar Knee - [id number]_imp Start: 01-28-2017 Comment on above: Description: triathl on X3 asymmetric patella Component Gmrs M edium 95s70by Femoral Modular Rotate Hinge Knee Left - [id number]_imp Start: 03-19-2018 Component Gmrs S mall Titanium 20s16mg Femoral Modular Rotate Hinge Knee - [id number] 1585940_imp Start: 03-19-2018 Mesh Marlex Polypropylene 81h05dg Surgical Patch Flat Sheet Knit Hernia - [id number]_imp Start: 07-06-2017 Comment on above: Description: bard me sh Mesh Marlex Polypropylene 13p31ig Surgical Patch Flat Sheet Knit Hernia - [id number] [id number]_imp Start: 03-19-2018 Baseplate Triath rafqi 6 Tibial Primary Cement Knee - [id number] Start: 06-06-2016 Baseplate Triath rafiq 5 Tibial Primary Cement Knee - [id number] Start: 01-28-2017 Comment on above: Description: triathl on primary tibial baseplate Baseplate S2 Tib ial Modular Rotate Hinge Knee - [id number]_imp Start: 03-19-2018 Washer 6.5 / 8.0 mm Asnis 3 - [id number]_imp Start: 07-06-2017 Comment on above: Description: washer CHRISTINA CHECK Functional Status Date Assessment Result Facility 01-08-2021 Are you deaf, or do you have serious difficulty hearing No 01/08/2021 2:54 PM EDT Turner Patten RN No [facility] 01-08-2021 Are you blind, or do you have serious difficulty seeing, even when wearing glasses No 01/08/2021 2:54 PM EDT Turner Patten RN No [facility] 01-08-2021 Do you have serious difficulty walking or climbing stairs Yes 01/08/2021 2:54 PM EDT Turner Patten RN Yes [facility] 01-08-2021 Do you have difficul ty dressing or bathing Yes 01/08/2021 2:54 PM EDT Turner Patten RN Yes [facility] 01-08-2021 Because of a physica l, mental, or emotional condition, do you have difficulty doing errands alone such as visiting a physician's office or shopping Yes 01/08/2021 2:54 PM EDT Turner Patten RN Yes [facility] Mental Status Date Assessment Result Facility 01-08-2021 Because of a physica l, mental, or emotional condition, do you have serious difficulty concentrating, remembering, or making decisions No 01/08/2021 2:54 PM EDT Turner Patten RN No [facility] Clinical Notes 11-26-2017 to 12-07-2024 Telephone Encounter - Fadumo Rahman LPN - 12/07/2024 1:37 PM EDTTelephone Encounter - Fadumo Rahman LPN - 12/07/2024 1:37 PM EDTTelephone Encounter - Moreno Oates MD - 12/07/2024 1:26 PM EDT Note Date & Type Note Facility 12-07-2024 Telephone encounter Note Natalia aware of PT order from Dr Oates [facility] 12-07-2024 Miscellaneous Notes Natalia aware of PT order from Dr Oates Recommend physical therapy eval and treat. Moreno Oates MD Spoke with nurse Massiel - not currently with patient Pt informed her this morning that symptoms started a few days ago: Left sided neck pain Making headaches worse Taking percocet 4x a day Q6 Lyrica BID Tylenol PRN 8/10 pain Headaches are not new - just worse Denies falls/known injury Denies visual changes, neuro concerns Reason for Disposition Headache is a chronic symptom (recurrent or ongoing AND present > 4 weeks) Protocols used: [id number] Natalia from [facility] calling updating that patient is having neck pain (9 out of 10). Neck pain is causing headaches. Patient has been identified by name and birthdate. Duration of symptoms: few days Please return call to [facility] and ask for the "300 nurse". Please call [phone] Was an appointment scheduled: No Closing statement: Symptom Call: Thank you for calling [facility], your call is very important. A nurse will call in approximately 2-4 hours during business hours. If this is an emergency, please contact 911. Mary Jo Genao documented in this encounter [facility] 12-07-2024 Telephone encounter Note Recommend physical therapy eval and treat. Moreno Oates MD [facility] 12-07-2024 Telephone encounter Note Spoke with nurse Massiel - not currently with patient Pt informed her this morning that symptoms started a few days ago: Left sided neck pain Making headaches worse Taking percocet 4x a day Q6 Lyrica BID Tylenol PRN 8/10 pain Headaches are not new - just worse Denies falls/known injury Denies visual changes, neuro concerns Reason for Disposition Headache is a chronic symptom (recurrent or ongoing AND present > 4 weeks) Protocols used: [id number] [facility] 12-07-2024 Telephone encounter Note Natalia from [facility] calling updating that patient is having neck pain (9 out of 10). Neck pain is causing headaches. Patient has been identified by name and birthdate. Duration of symptoms: few days Please return call to [facility] and ask for the "300 nurse". Please call [phone] Was an appointment scheduled: No Closing statement: Symptom Call: Thank you for calling [facility], your call is very important. A nurse will call in approximately 2-4 hours during business hours. If this is an emergency, please contact 911. Mary Jo Genao [facility] 11-18-2024 Telephone encounter Note The following approved medication [...] 30 days. Authorizing Provider: MORENO OATES MD [facility] 11-18-2024 Miscellaneous Notes The following approved medication requests [...] MORENO OATES MD documented in this encounter [facility] 11-10-2024 Telephone encounter Note [employer] patient. Medications will 11/13/2024 [facility] 11-10-2024 Miscellaneous Notes [facility] patient. Medications will 11/13/2024 documented in this encounter [facility] 10-20-2024 Note Hospitalist Discharg e Summary Charlie [...] chronic hypoxic respiratory failure who resides at [facility] facility presenting for several days of worsening [...] 11 9 LIVER PROFILE:No results for input(s): "AST", "ALT", "BILITOT", "ALKPHOS", "PROT" in the last 72 hours. No lab exists for component: LABALBU PT/INR: No results for input(s): "PROTIME", "INR" in the last 72 hours. CARDIAC ENZYMES: No results for input(s): "TROPONINI" in the last 72 hours. Procalcitonin: No results found for: "PROCAL" COVID-19 PCR: No results for input(s): "COVID19" in the last 72 hours. Vitals: BP 106/71 (BP Location: Left arm, Patient Position: Lying) Pulse 70 Temp 36.3 ?C (97.3 ?F) (Temporal) Resp 18 Ht 5' 11" (1.803 m) Wt 250 lb (113 kg) [...] Complexity: follow up within 7-14 calendar days (09087) [x] Severe Complexity: follow up within 7 calendar days (93897) Follow up Testing, Pending results or Referrals [...] discharge instructions from (more content not included)... [facility] 10-20-2024 Note PHYSICAL THERAPY [facility] Initial Evaluation Name/MRN: Charlie Nguyen ([id number]) Evaluation Date: 10/20/2024 Date of : 1955 Admission Date: 10/17/2024 12:22 PM Age: 69 y.o. Room/Bed: B2256/[facility]256 A Discharge Recommendation: [facility] with PT, Nursing Home Facility Assessment IMPRESSION: Pt is a 69yo female admitted to ED on 10/17 from [facility] with complaints of AMS and fever. Staff reports pt has been hallucinating. Pt found to have UTI. Prior to admission, pt lived at [facility] for ~3 years. Pt states she was [...] independence in functional mobility. Recommend return to ECF with PT at discharge. 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 Intentional drug overdose ([facility]) 10/25/2019 Aspiration pneumonia ([facility]) ([facility]) 10/25/2019 Drug overdose, multiple drugs, accidental or unintentional, initial encounter 10/25/2019 Palliative care encounter 10/20/2019 Unspecified mood (affective) disorder ([facility]) 10/12/2019 Acute respiratory failure with hypoxia ([facility]) 10/08/2019 Hypertension 03/26/2015 Chronic nonintractable headache 03/26/2015 Glioma ([facility]) 02/08/2015 Migraine 12/11/2014 Internal derangement of right [...] Raw Score (No Stairs) : 9 JH-HLM JH-HLM Score: Sat at edge of b (more content not included)... [facility] 10-19-2024 Note [facility] Respiratory Care Department Progress Note Comment or [...] mind regarding wearing PAP to hit their "call light" or inform their nurse to contact Respiratory. A second, consecutive night of refusing PAP therapy/study results in order completion in the EMR. If future CPAP/BiPAP/AutoPAP therapy or study is indicated please place another order in the EMR and the assigned Respiratory Therapist will reattempt to fulfill orders. Thank you for involving Respiratory in the care of this patient, [facility] 10-19-2024 Note Hospitalist Progress Note 10/19/[phone]: Please page me ([phone]) for patient care issues. [phone]: Please page [facility] night Hospitalist for any issues. Subjective: Admit [...] 11 9 LIVER PROFILE:No results for input(s): "AST", "ALT", "BILITOT", "ALKPHOS", "PROT" in the last 72 hours. No lab exists for component: LABALBU PT/INR: No results for input(s): "PROTIME", "INR" in the last 72 hours. CARDIAC ENZYMES: No results for input(s): "TROPONINI" in the last 72 hours. Procalcitonin: No results found for: "PROCAL" COVID-19 PCR: No results for input(s): "COVID19" in the last 72 hours. Objective: Vitals: BP 102/69 (BP Location: Right arm, Patient Position: Lying) Pulse 81 Temp 36.2 ?C (97.1 ?F) (Temporal) Resp 16 Ht 5' 11" (1.803 m) Wt 250 lb (113 kg) [...] Contact: Vicente Driscoll Mobile Relation: Daughter Red Guidry, Division of Hospitalist Medicine Inpatient Medical Services/[facility] PAGER: Epic chat [1] Past Medical History: [...] 100 mg, Oral, (more content not included)... [facility] 10-19-2024 Note Patient sleeping com fortably, will attempt smoking cessation counseling at a later time. [facility] 10-18-2024 Note Hospitalist Progress Note 10/18/2024 2031-1906: Please page me ([phone]) for patient care issues. [id number]: Please page [facility] night Hospitalist for any issues. Subjective: Admit [...] 10 11 LIVER PROFILE:No results for input(s): "AST", "ALT", "BILITOT", "ALKPHOS", "PROT" in the last 72 hours. No lab exists for component: LABALBU PT/INR: No results for input(s): "PROTIME", "INR" in the last 72 hours. CARDIAC ENZYMES: No results for input(s): "TROPONINI" in the last 72 hours. Procalcitonin: No results found for: "PROCAL" COVID-19 PCR: No results for input(s): "COVID19" in the last 72 hours. Objective: Vitals: BP 133/86 (BP Location: Left arm, Patient Position: Lying) Pulse 87 Temp 38 ?C (100.4 ?F) (Oral) Resp 18 Ht 5' 11" (1.803 m) Wt 250 lb (113 kg) [...] chronic hypoxic respiratory failure who resides at [facility] facility presenting for several days of worsening [...] - 10/19 vs 10/20 - Location - [facility] - Pending the following - improvement in UTI. UC Toxic drug monitoring/narrow therapeutic index drug monitoring : # Drug name : # Route administered : # Method of monitoring : Extended Emergency Contact Information Primary Emergency Contact: Vicente Driscoll Mobile Relation: Daughter Red Guidry DO Division of Hospitalist Medicine Inpatient Medical Services/[facility] PAGER: [employer] chat [1] Past Medical History: Diagnosis Date [...] Oral, Nightly pregabalin, 100 mg, Oral, BID [facility] 10-18-2024 Note SNF Return Referral placed to [facility] via [facility] per [facility] request. Awaiting review and response regarding ability to accept. [facility] notified. [facility] 10-17-2024 Note Attending History an d Physical [...] Resource Strain: Low Risk (11/05/2019) Received from [facility] Overall Financial Resource Strain (CARDIA) Difficulty of Paying Living Expenses: Not very hard Food Insecurity: Food Insecurity Present (11/05/2019) Received from [facility] Hunger Vital Sign Worried About Running Out of Food in the Last Year: Sometimes true Ran Out of Food in the Last Year: Sometimes true Transportation Needs: No Transportation Needs (11/05/2019) Received from [facility] PRAPARE - Transportation Lack of Transportation (Medical): [...] (98.8 ?F) (Oral) Resp 20 Ht 5' 11" (1.803 m) Wt 250 lb (113 kg) [...] present. Mental S (more content not included)... [facility] 10-14-2024 Telephone encounter Note [facility] patient. The following approved medication requests [...] 30 days. Authorizing Provider: MORENO OATES MD [facility] 10-14-2024 Miscellaneous Notes [facility] patient. The following approved medication requests [...] MORENO OATES MD documented in this encounter [facility] 09-16-2024 Telephone encounter Note Pt resides at [facility] The following approved medication requests have [...] 30 days. Authorizing Provider: MORENO OATES MD [facility] 09-16-2024 Miscellaneous Notes Pt resides at [facility] The following approved medication requests have [...] MORENO OATES MD documented in this encounter [facility] 08-18-2024 Telephone encounter Note The following approved [...] 30 days. Authorizing Provider: MORENO OATES MD [facility] 08-18-2024 Miscellaneous Notes The following approved medication [...] MORENO OATES MD documented in this encounter [facility] 07-22-2024 Telephone encounter Note detention patient. [facility] 07-22-2024 Miscellaneous Notes detention patient. documented in this encounter [facility] 07-18-2024 Telephone encounter Note Received 07/18/2024 from [facility]. Placed in provider's inbox for review. [facility] to [facility] for [facility]. [facility] 07-18-2024 Miscellaneous Notes Received 07/18/2024 from [facility]. Placed in provider's inbox for review. Route to [facility] for scanning. documented in this encounter [facility] 06-23-2024 Telephone encounter Note The following approved [...] 30 days. Authorizing Provider: MORENO OATES MD [facility] 06-23-2024 Miscellaneous Notes The following approved medication [...] MORENO OATES MD documented in this encounter [facility] 05-24-2024 Telephone encounter Note The following approved [...] 30 days. Authorizing Provider: MORENO OATES MD [facility] 05-24-2024 Miscellaneous Notes The following approved medication [...] MORENO OATES MD documented in this encounter [facility] 04-22-2024 Telephone encounter Note The following approved medication requests have been transmitted electronically. Requested Prescriptions Signed Prescriptions Disp Refills diazePAM (VALIUM) 5 mg tablet 60 tablet 0 Sig: Take 1 tablet by mouth two times a day for 30 days. Authorizing Provider: MORENO OATES MD [facility] 04-22-2024 Miscellaneous Notes The following approved medication requests have been transmitted electronically. Requested Prescriptions Signed Prescriptions Disp Refills diazePAM (VALIUM) 5 mg tablet 60 tablet 0 Sig: Take 1 tablet by mouth two times a day for 30 days. Authorizing Provider: MORENO OAETS MD Received refill request from [facility]. Pended please advise. documented in this encounter [facility] 04-22-2024 Telephone encounter Note The following approved medication requests have been transmitted electronically. [facility] pt Requested Prescriptions Signed Prescriptions Disp Refills oxyCODONE-acetaminophen (PERCOCET) 5-325 mg tablet 120 tablet 0 Sig: Take 1 tablet by mouth every 6 hours for 30 days. Authorizing Provider: MORENO OATES pregabalin (LYRICA) 150 mg capsule 60 capsule 0 Sig: Take 1 capsule by mouth two times a day for 30 days. Authorizing Provider: MORENO OATES MD [facility] 04-22-2024 Miscellaneous Notes The following approved medication requests have been transmitted electronically. [facility] pt Requested Prescriptions Signed Prescriptions Disp Refills oxyCODONE-acetaminophen (PERCOCET) 5-325 mg tablet 120 tablet 0 Sig: Take 1 tablet by mouth every 6 hours for 30 days. Authorizing Provider: MORENO OATES pregabalin (LYRICA) 150 mg capsule 60 capsule 0 Sig: Take 1 capsule by mouth two times a day for 30 days. Authorizing Provider: MORENO OATES MD documented in this encounter [facility] 04-21-2024 Telephone encounter Note [facility]. Pended please advise. [facility] 04-12-2024 Telephone encounter Note Received from [facility]. Placed in provider's inbox for review. Route to [facility] for scanning. [facility] 04-12-2024 Miscellaneous Notes Received from [facility]. Placed in provider's inbox for review. Route to [facility] for scanning. documented in this encounter [facility] 03-31-2024 Telephone encounter Note Patient's request for medication has been refused. See reason and notify patient. Requested Prescriptions Refused Prescriptions Disp Refills oxyCODONE-acetaminophen (PERCOCET) 5-325 mg tablet 120 tablet 0 Sig: Take 1 tablet by mouth every 6 hours for 30 days. pregabalin (LYRICA) 150 mg capsule 60 capsule 0 Sig: Take 1 capsule by mouth two times a day for 30 days. [facility] 03-31-2024 Miscellaneous Notes Patient's request for medication [...] request from [facility] documented in this encounter [facility] 03-31-2024 Telephone encounter Note Rx request from [facility] 03-25-2024 Telephone encounter Note The following approved [...] 30 days. Authorizing Provider: MORENO OATES MD [facility] 03-25-2024 Miscellaneous Notes The following approved medication [...] MORENO OATES MD documented in this encounter [facility] 03-24-2024 Telephone encounter Note The following approved medication requests have been transmitted electronically. Requested Prescriptions Signed Prescriptions Disp Refills diazePAM (VALIUM) 5 mg tablet 60 tablet 0 Sig: Take 1 tablet by mouth two times a day for 30 days. Authorizing Provider: MORENO OATES MD [facility] 03-24-2024 Miscellaneous Notes The following approved medication requests have been transmitted electronically. Requested Prescriptions Signed Prescriptions Disp Refills diazePAM (VALIUM) 5 mg tablet 60 tablet 0 Sig: Take 1 tablet by mouth two times a day for 30 days. Authorizing Provider: MORENO OATES MD Refill request from [facility], pended. documented in this encounter [facility] 03-24-2024 Telephone encounter Note Refill request from [facility], pended. [facility] 03-17-2024 Telephone encounter Note Received orders from [facility]. Placed in provider's inbox for review. Route to [place] fax [facility] 03-17-2024 Miscellaneous Notes Received orders from [facility]. Placed in provider's inbox for review. Route to [place] fax documented in this encounter [facility] 03-10-2024 Telephone encounter Note Received outside lab results from [facility]. Placed in provider's inbox for review. Route to [facility] scanning [facility] 03-10-2024 Miscellaneous Notes Received outside lab results from [facility]. Placed in provider's inbox for review. Route to [place] scanning documented in this encounter [facility] 02-26-2024 Telephone encounter Note [facility] patient. . The following approved medication [...] 30 days. Authorizing Provider: MORENO OATES MD [facility] 02-26-2024 Miscellaneous Notes [facility] patient. . The [...] MORENO OATES MD documented in this encounter [facility] 01-28-2024 Telephone encounter Note [facility] [place] patient Requested Prescriptions Signed Prescriptions Disp Refills oxyCODONE-acetaminophen (PERCOCET) 5-325 mg tablet 120 tablet 0 Sig: Take 1 tablet by mouth every 6 hours for 30 days. Authorizing Provider: MORENO OATES pregabalin (LYRICA) 150 mg capsule 60 capsule 0 Sig: Take 1 capsule by mouth two times a day for 30 days. Authorizing Provider: MORENO OATES [facility] 01-28-2024 Miscellaneous Notes [facility] patient Requested Prescriptions Signed Prescriptions Disp Refills [...] 2024 3:29 PM documented in this encounter [facility] 01-27-2024 Telephone encounter Note Prescription Refill Information [...] Gaviria LPN January 27, 2024 3:29 PM [facility] 12-30-2023 Telephone encounter Note The following [...] 30 days. Authorizing Provider: MORENO OATES MD [facility] 12-30-2023 Miscellaneous Notes The following approved [...] 2023 4:56 PM documented in this encounter [facility] 12-30-2023 Telephone encounter Note Prescription Refill Information [...] Gaviria LPN December 30, 2023 9:55 AM [facility] 12-30-2023 Miscellaneous Notes Prescription Refill Information The [...] 2023 9:55 AM documented in this encounter [facility] 12-29-2023 Telephone encounter Note Charlie is calling Moreno Oates MD [facility], Nurse from [facility] called to request this medication, not on current list: Disp Refills Start End diazePAM (VALIUM) 5 mg tablet 60 tablet 0 11/27/2023 12/27/2023 Sig: Take 1 tablet by mouth two times a day for 30 days. Sent to pharmacy as: diazePAM (VALIUM) 5 mg tablet Class: Normal Route: ORAL Order: [id number] E-Prescribing Status: Receipt confirmed by pharmacy (11/27/2023 2:31 PM EDT) Please send to [facility]. Patient has been identified by name and birthdate. Duration of symptoms: N/A Was an appointment scheduled: No Closing statement: Results or non-symptom based questions: Thank you for calling [facility], your call will be returned within the next business day. Hoda Lewis [facility] 12-29-2023 Miscellaneous Notes Charlie is calling Moreno Oates MD today [facility], Nurse from [facility] called to request this medication, not on current list: Disp Refills Start End diazePAM (VALIUM) 5 mg tablet 60 tablet 0 11/27/2023 12/27/2023 Sig: Take 1 tablet by mouth two times a day for 30 days. Sent to pharmacy as: diazePAM (VALIUM) 5 mg tablet Class: Normal Route: ORAL Order: [id number] E-Prescribing Status: Receipt confirmed by pharmacy (11/27/2023 2:31 PM EDT) Please send to [facility]. Patient has been identified by name and birthdate. Duration of symptoms: N/A Was an appointment scheduled: No Closing statement: Results or non-symptom based questions: Thank you for calling [facility], your call will be returned within the next business day. Hoda Lewis documented in this encounter [facility] 12-29-2023 Telephone encounter Note Prescription Refill Information [...] Hoda Lewis December 29, 2023 4:56 PM [facility] 11-27-2023 Telephone encounter Note Pt at [facility]. The following approved medication requests have [...] 30 days. Authorizing Provider: MORENO OATES MD [facility] 11-27-2023 Miscellaneous Notes Pt at [facility]. The following approved medication requests have [...] MORENO OATES MD documented in this encounter [facility] 10-28-2023 Telephone encounter Note detention patient. The following approved medication requests have [...] phone, fax) Pharmacy Information Pharmacy Address Telephone [facility] environment [address] [place] [address] Moreno Oates MD [facility] 10-28-2023 Miscellaneous Notes detention patient. The following approved medication requests have [...] phone, fax) Pharmacy Information [facility] [place] [address] Moreno Oates MD Pharmacy verified in [facility] Patient has been identified by name [...] Fadumo Rahman LPN documented in this encounter [facility] 10-27-2023 Telephone encounter Note Pharmacy verified in [facility] Patient has been identified by name [...] Not applicable Please advise. Fadumo Rahman LPN [facility] 10-12-2023 Telephone encounter Note Received lab results from [facility]. Placed in provider's inbox for review. Route to [place] scanning [facility] 10-12-2023 Miscellaneous Notes Received lab results from [facility]. Placed in provider's inbox for review. Route to [facility] scanning documented in this encounter [facility] 10-08-2023 Telephone encounter Note The following approved [...] To back Authorizing Provider: MORENO OATES MD [facility] 10-08-2023 Miscellaneous Notes The following approved medication [...] Rx request, pended documented in this encounter [facility] 10-07-2023 Telephone encounter Note Rx request, pended [facility] 09-25-2023 Telephone encounter [facility]. The following approved medication requests have [...] MORENO OATES Pharmacy Information Pharmacy Address Telephone [employer] [address] [place] [address] [place] [address] Moreno Oates MD [facility] 09-25-2023 Miscellaneous Notes [facility] patient. The following [...] MORENO OATES Pharmacy Information Pharmacy Address Telephone [employer] [employer] [address] [place] [address] Moreno Oates MD documented in this encounter [facility] 09-11-2023 Telephone encounter Note The following approved medication requests have been transmitted electronically. Requested Prescriptions Signed Prescriptions Disp Refills ondansetron (ZOFRAN) 8 mg tablet 90 tablet 5 Sig: Take 1 tablet by mouth every 8 hours as needed for nausea/vomiting. Authorizing Provider: MORENO OATES Pharmacy Information Pharmacy Address [place] [employer] [facility] [place] [address] Moreno Oates MD [facility] 09-11-2023 Miscellaneous Notes The following approved medication requests have been transmitted electronically. Requested Prescriptions Signed Prescriptions Disp Refills ondansetron (ZOFRAN) 8 mg tablet 90 tablet 5 Sig: Take 1 tablet by mouth every 8 hours as needed for nausea/vomiting. Authorizing Provider: MORENO OATES Pharmacy Information Pharmacy Address [place] [facility] [employer] [address] [address] Moreno Oates MD documented in this encounter [facility] 08-11-2023 Miscellaneous Notes Received lab results from [facility]/ [facility]. Placed in provider's inbox for review. Route to [place] scanning documented in this encounter [facility] 07-31-2023 Miscellaneous Notes [facility] The following approved medication requests have been transmitted electronically. Requested Prescriptions Signed Prescriptions Disp Refills oxyCODONE-acetaminophen (PERCOCET) 5-325 mg tablet 120 tablet 0 Sig: Take 1 tablet by mouth every 6 hours for 30 days. Authorizing Provider: MORENO OATES MD documented in this encounter [facility] 07-30-2023 Miscellaneous Notes Pt at [facility]. Seen by Dr Oates in facility [...] MORENO OATES MD documented in this encounter [facility] 05-11-2023 Miscellaneous Notes Received 05/11/2023 from [facility]. Placed in provider's inbox for review. [facility] to [facility] for [facility]. documented in this encounter [facility] 04-29-2023 Miscellaneous Notes Pt at [facility], due for refills. The following approved medication [...] MORENO OATES MD documented in this encounter [facility] 04-13-2023 Miscellaneous Notes Received 04/13/2023 from [facility]. Placed in provider's inbox for review. Route to [facility] for scanning. documented in this encounter [facility] 04-07-2023 Miscellaneous Notes Relayed message to Tamar. She said she would check and patients supply. Tamar, nurse for this patient, returned call. Please call her back at [phone]. LM for nurse at [facility]. Let pharmacy know these Rx's were sent last week Moreno Oates MD Received order requests from [facility] for diazepam and oxycodone APAP. Placed in provider's inbox to review. documented in this encounter [facility] 03-30-2023 Miscellaneous Notes The following approved medication [...] MORENO OATES MD documented in this encounter [facility] 02-13-2023 Miscellaneous Notes Spoke to Ginny at [...] as above. Please process accordingly. Lou Davis APRN.ENERGY DERIVATIVES TRADER See below, per Yoly, nurse at the [...] my name is Yoly I'm calling from [facility] facility. Phone number is [phone]. Calling in regards to a Charlie Nguyen [...] please give me a call thank you. Bye." Reason for Disposition [1] Caller is not with the adult (patient) AND [2] probable NON-URGENT symptoms Answer Assessment - Initial Assessment Questions 1. REASON FOR CALL or QUESTION:Calling with some issues the patient is dealing with. Protocols used: Information Only Call - No [id number] documented in this encounter [facility] 02-12-2023 Miscellaneous Notes Received lab results from [facility]. Placed in provider's inbox for review. Route to [place] scanning. documented in this encounter [facility] 02-12-2023 Miscellaneous Notes Spoke with Lovely at [facility]. Relayed message below. Verbalized understanding with no further questions or concerns. Yudi Pak Lovely, Nurse from the [facility] where the patient lives is calling back. Please call her again [phone]. Please call more than one time, she [...] regular Percocet. Moreno Oates MD [place] with [facility] calling today asking for stronger tylenol. Patient is requesting 1000 mg. Cheyenne is also updating that the patient is on percocet as well. Please return call if appropriate [phone] documented in this encounter [facility] 01-31-2023 Miscellaneous Notes The following approved medication [...] MORENO OATES MD documented in this encounter [facility] 01-31-2023 Miscellaneous Notes The following approved medication [...] needs Dr Oates's signature and faxed to [facility]. documented in this encounter [facility] 01-26-2023 Miscellaneous Notes Received 01/26/2023 from [facility]. Placed in provider's inbox for review. Route to [facility] for scanning. documented in this encounter [facility] 01-13-2023 Miscellaneous Notes Received clarification request from [facility] pharmacy. Placed in provider's inbox for review. Route to [place] fax documented in this encounter [facility] 01-12-2023 Miscellaneous Notes Received lab results from [facility]/ [facility]. Placed in provider's inbox for review. Route to [place] scanning. documented in this encounter [facility] 01-01-2023 Miscellaneous Notes The following approved medication [...] urgent request for refills via fax from [facility]. Placed in provider's inbox for review. Route to [facility] Pended. documented in this encounter [facility] 12-31-2022 Miscellaneous Notes Received 12/31/2022 from [facility]. Placed in provider's inbox for review. Route to [facility] for scanning documented in this encounter [facility] 12-29-[address] Oates placed call to the [place] approving the orders recommended. Moreno Oates MD Please review and advise. Hey good afternoon my name is Zari Segovia nurse practitioner with [facility]. Phone number [phone]. I'm calling in regards to patient Charlie Reyes. Her date of is 1955. She is a resident at [facility]. Calling Charlie has a mildly low pulse [...] like you can return my call at [phone]. Thank you so much. Galindo madrid." Reason for Disposition [1] Follow-up call to recent contact AND [2] information only call, no triage required Protocols used: Information Only Call - No [id number] documented in this encounter [facility] 12-16-2022 Miscellaneous Notes Received consultation visit summary from [facility]. Placed in provider's inbox for review. Route to [facility] scanning. documented in this encounter [facility] 12-01-2022 Miscellaneous Notes Refills sent on 11/26. Vaughn Montes De Oca MD [facility] faxed PCP office in [place] requesting orders for patient's oxycodone/APAP and diazepam. PCP out of office - I faxed the orders over to covering providers in [place]. Can anyone sign the orders for patient's refills? documented in this encounter [facility] 11-21-2022 Miscellaneous Notes No change faxed to [facility]. documented in this encounter [facility] 11-17-2022 Emergency department Note Report called to SNF. Kelvin Grajeda RN 11/17/22 [facility] 11-17-2022 Emergency department Note Report called to SNF. Kelvin Grajeda RN 11/17/22 [facility] ETA 15 min Carlos Castano RN 11/17/22 9097 Oxygen via [place] off since 1250 to see if able to tolerate RA. Kelvin Grajeda RN 11/17/22 1307 EMERGENCY DEPARTMENT ENCOUNTER Pt Name: Charlie Nguyen Birthdate 1955 Date of evaluation: 11/17/2022 ED Provider: Marc Goodman DO CHIEF COMPLAINT Chief Complaint Patient presents with Leg Swelling Pt brought in by [facility] for swelling in her L ankle [...] She is currently on Eliquis. Sent by [facility] via EMS to rule out DVT. She [...] (methicillin resistant Staphylococcus aureus) MS (multiple sclerosis) ([facility]) (HCC) Schizoaffective disorder ([facility]/H[facility]) ([facility]) Tobacco use SURGICAL HISTORY Past Surgical History: [...] Culture. Procedure Abnormality Status --------- ------ Complete Urinalysis[[id number]] Please view results for these tests on [...] 12:20:12 PM PATIENT REFERRED TO: Moreno Oates [address] [place], [place] [id number] Schedule an appointment as soon as possible [...] DO 11/17/22 1648 documented in this encounter [facility] 11-17-2022 Emergency department Note Physicians ETA 15 min Carlos Castano RN 11/17/22 1359 [facility] 11-17-2022 Emergency department Note Oxygen via [place] off since 1250 to see if able to tolerate RA. Kelvin Grajeda RN 11/17/22 1308 [facility] 11-17-2022 Physician Emergency department Note EMERGENCY DEPARTMENT ENCOUNTER Pt Name: Charlie Nguyen Birthdate 1955 Date of evaluation: 11/17/2022 ED Provider: Marc Goodman DO CHIEF COMPLAINT Chief Complaint Patient presents with Leg Swelling Pt brought in by [facility] for swelling in her L ankle [...] She is currently on Eliquis. Sent by [facility] via EMS to rule out DVT. She currently denies any shortness of breath and was not previously on supplemental oxygen. Nursing Notes were reviewed. Limitations to history: None Outside historians: None REVIEW OF SYSTEMS Review of Systems Pertinent positives and negatives as per HPI PAST MEDICAL HISTORY Past Medical History: Diagnosis Date Anxiety Benign neoplasm of brain (HCC) Brain tumor ([facility]) 02/01/2015 Found small tumor, has appt with neurologist in May Chronic back pain Chronic pain syndrome Cognitive communication deficit COVID-19 Depression GERD (gastroesophageal reflux disease) Headache Hypertension Ischemic colitis ([facility]) MRSA (methicillin resistant Staphylococcus aureus) MS (multiple sclerosis) ([facility]) ([facility]) Schizoaffective disorder ([facility]) ([facility]) Tobacco use SURGICAL HISTORY Past Surgical History: [...] Culture. Procedure Abnormality Status --------- ------ Complete Urinalysis[[id number]] Please view results for these tests on [...] 12:20:12 PM PATIENT REFERRED TO: Moreno Oates [address] [place] [id number] Schedule an appointment as soon as [...] Medicine Provider Marc Goodman DO 11/17/22 1648 [facility] 11-06-2022 Miscellaneous Notes Received 11/06/2022 from [facility] Placed in provider's inbox for review. [facility] documented in this encounter [facility] 10-10-2022 Miscellaneous Notes Received Rx request from [facility] for meds she has had filled [...] Moreno Oates MD documented in this encounter [facility] 10-01-2022 Miscellaneous Notes Pt in [facility]. The following approved medication requests have been transmitted electronically. Requested Prescriptions Signed Prescriptions Disp Refills diazePAM (VALIUM) 5 mg tablet 60 tablet 0 Sig: Take 1 tablet by mouth twice daily for 30 days. Authorizing Provider: MORENO OATES MD documented in this encounter [facility] 09-24-2022 Miscellaneous Notes Seen in [place] today. Having worse headaches. Will try increased dose of Lyrica The following approved medication requests have been transmitted electronically. Requested Prescriptions Signed Prescriptions Disp Refills pregabalin (LYRICA) 150 mg capsule 60 capsule 0 Sig: Take 1 capsule by mouth twice daily for 30 days. Authorizing Provider: MORENO OATES MD documented in this encounter [facility] 09-19-2022 Miscellaneous Notes Fax sent to inform. Request for refill too early. These were filled by [facility] on 08/27 and 08/29. Patient's request [...] Moreno Oates MD documented in this encounter [facility] 09-05-2022 Miscellaneous Notes Patient's request for medication [...] Moreno Oates MD documented in this encounter [facility] 08-29-2022 Miscellaneous Notes The following approved medication requests have been transmitted electronically. Requested Prescriptions Signed Prescriptions Disp Refills oxyCODONE-acetaminophen (PERCOCET) 5-325 mg tablet 120 tablet 0 Sig: Take 1 tablet by mouth every 6 hours for 30 days. Authorizing Provider: MORENO OATES Pharmacy Information [facility] [address] [place] [id number] [place]scr[place]ied to [place] Moreno Oates MD documented in this encounter [facility] 08-28-2022 Miscellaneous Notes Received lab results 08/28/22 from [facility]. Placed in provider's inbox for review. Route to [place] scanning. documented in this encounter [facility] 08-11-2022 History of Present illness Narrative Images from the original note were not included. Ortho Knee Follow Up Note Narrative Referring Provider: Debbie Batista [address] [facility] [id number] PCP: Moreno Oates MD IMPRESSION/PLAN: 67 year [...] ambulate. She is a resident in a care home care facility. She reports most of the [...] 30-34.9 Infection of Prosthetic Right Knee Joint ([facility]) Joint Infection ([facility]) Dysuria Septic Arthritis of Knee, Right ([facility]) Status post op: BMI: There is no [...] Debbie Batista PA-C documented in this encounter [facility] 07-30-2022 Miscellaneous Notes Received Notice of rule out for pasrr further review from [place] [employer]. Placed in provider's inbox for review. Route to [place] scanning. documented in this encounter [facility] 07-29-2022 Miscellaneous Notes The following approved medication [...] Provider: MORENO OATES MD Refill request from [facility] documented in this encounter [facility] 07-26-2022 Miscellaneous Notes Request completed and faxed to Yoly at [facility] fax #[phone] with confirmation of receipt. PDMP reviewed 1 month supply sent Faxed [facility] from [facility] Placed on Dr. Clemons's desk for completion When signed fax to [facility] [phone] Still waiting for fax from Yoly, spoke to her again and had her send to another fax machine Yoly from [facility] left message on RN line stating she faxed an order to PCP office asking for Percocet order. States she talked to Dr. Oates who advised he is out of town and to contact system consultant physician for order. She is going to fax the form to [place] for the covering physician to review. Patient is out of medication and was due to receive this at 10 AM today for chronic pain. Please look out for order fax coming and return fax as soon as possible or advise Yoly. oxyCODONE-acetaminophen (PERCOCET) 5-325 mg tablet 05/13/22 -- Moreno Oates MD Take 1 tablet by mouth four times daily as needed for pain. JENN Boyle called from [facility]. Patient needs this script filled as she only has 2 doses left. Please call [facility] at [phone] for any questions. Thank you. documented in this encounter [facility] 07-22-2022 Miscellaneous Notes Pt admitted at [facility]. PDMP website checked and validated. All prescriptions [...] Moreno Oates MD Received refill request from [facility]. Refill pended. documented in this encounter [facility] 07-16-2022 Miscellaneous Notes Received lab results from [facility]. Placed in provider's inbox for review. Route to [place] scanning. documented in this encounter [facility] 07-06-2022 History of Present illness Narrative Rx's phoned in over weekend for Lyrica and diazepam. Moreno Oates MD documented in this encounter [facility] 07-05-2022 Miscellaneous Notes Received pt update regarding being lowered to the floor (not a fall) from [facility]. Placed in provider's inbox for review. Route to [place] scanning. documented in this encounter [facility] 06-25-2022 Miscellaneous Notes [facility] resident. The Rx was filled on 06/06. Sent approval for Rx's to be filled on 07/02 Received refill request from [facility]. Placed in provider's inbox for review. Route to [place] fax documented in this encounter [facility] 06-18-2022 Miscellaneous Notes Received med orders from [facility]. Placed in provider's inbox for review. Route to [place] fax documented in this encounter [facility] 06-12-2022 Note HNO ID: [id number] Author: BLAYNE Henderson Service: Radiology Author Type: Technologist Type: Progress [...] to prevent falls during this visit? Yellow "Falls Risk Wristband" Applied, Instructed Patient to Call for Help if Needed, Offered Assistance with Transfers/Clothing, and Instructed Patient to Remain Seated (Not on Exam Table) Until Exam PATIENT GENDER DATA: Female. status: : No status: NO. PATIENT RELEVANT IMPLANT DATA REVIEWED: Not Applicable RADIOLOGY DEPARTMENT: CT; Exam(s) Completed: Lower extremity PERIPHERAL IV DATA: Not applicable SIGNED BY: BLAYNE Henderson June 12, 2022 3:37 PM [facility] 06-12-2022 History of Present illness Narrative [...] to prevent falls during this visit? Yellow "Falls Risk Wristband" Applied, Instructed Patient to Call for Help [...] 2022 3:37 PM documented in this encounter [facility] 05-22-2022 Miscellaneous Notes Received lab results from [facility]. Placed in provider's inbox for review. Route to [place] scanning documented in this encounter [facility] 05-21-2022 History of Present illness Narrative Radiology Service Progress Note PATIENT NAME: Charlie Nguyen RADIOLOGY DEPARTMENT: General X-ray: Exam(s) Completed: Lower Extremity X-Ray(s): Knee, AP / Lat / Merchant Left PERIPHERAL IV DATA: Not applicable SIGNED BY: RT Kaylen(R) May 21, 2022 1:10 PM documented in this encounter [facility] 05-21-2022 History of Present illness Narrative xr documented in this encounter [facility] 05-13-2022 Miscellaneous Notes The following approved medication [...] time. Please send in a new script. [facility] patient Check iwith 300 unit nurse , why are they requesting refill now, it was filled for 30 days on 04/26? Moreno Oates MD documented in this encounter [facility] 03-24-2022 Miscellaneous Notes Received request for pregabalin from [facility]. Placed in provider's inbox for review. [facility] to [facility] fax documented in this encounter [facility] 03-18-2022 Miscellaneous Notes Orders faxed. [facility] is asking that the mammogram orders be placed as soon as possible, as there is availability tomorrow for the testing to be done. Orders signed by Carlos Mejia APRN. Faxed to [facility] Received Mammogram order from [facility]. Placed in provider's inbox for review. Route to [place] fax documented in this encounter [facility] 03-17-2022 Miscellaneous Notes [facility] stated patient has upcoming appt with them. The need orders for bilateral diagnostic mammogram and unilateral US for left breast pain. Please fax to [phone] . documented in this encounter [facility] 03-11-2022 Miscellaneous Notes The following approved medication [...] MORENO OATES MD documented in this encounter [facility] 03-10-2022 Miscellaneous Notes Received lab results from [facility]. Placed in provider's inbox for review. Route to [place] scanning. documented in this encounter [facility] 03-10-2022 Miscellaneous Notes Received pharmacy orders from [facility]. Placed in provider's inbox for review. Route to [place] fax documented in this encounter [facility] 03-06-2022 Miscellaneous Notes Completed Request were sent with confirmation. ([phone]) [phone] Forms placed in Ana Maria's file. Form was signed and completed and placed in outbox Please fax back Thanks Type of letter/form/fax request - refill Form received from [facility] Placed on MD desk () for completion. Completed form needs to be faxed to [phone]. [facility] to [facility] when form completed for processing documented in this encounter [facility] 02-13-2022 Miscellaneous Notes Received request for assessment of continued Nystatin from [facility]. Placed in provider's inbox for review. Route to [place] fax documented in this encounter [facility] 02-12-2022 Miscellaneous Notes Medication was refilled on 02/05/2022 Received refill request for diazepam 5mg tablets from [facility]. Faxed to covering provider pool. documented in this encounter [facility] 02-10-2022 Miscellaneous Notes Received labs from [facility]. Placed in provider's inbox for review. Route to ANA MARIA scanning. documented in this encounter [facility] 02-05-2022 Miscellaneous Notes Received pharmacy orders from [facility]. Placed in provider's inbox for review. Route to [place] fax documented in this encounter [facility] 01-07-2022 Miscellaneous Notes The following approved medication requests have been transmitted electronically. Requested Prescriptions Signed Prescriptions Disp Refills pregabalin (LYRICA) 100 mg capsule 60 capsule 0 Sig: Take 1 capsule by mouth twice daily for 30 days. Authorizing Provider: MORENO OATES MD documented in this encounter [facility] 12-30-2021 Miscellaneous Notes Received prescription request from [facility]. Placed in provider's inbox for review. Route to [place] fax documented in this encounter [facility] 12-23-2021 Miscellaneous Notes Received pharmacy recommendation from [facility]. Placed in provider's inbox for review. Route to [place] fax documented in this encounter [facility] 12-23-2021 Miscellaneous Notes Received request for oxycodone 5-325 from [facility]. Placed in provider's inbox for review. Route to [place] fax documented in this encounter [facility] 12-09-2021 Miscellaneous Notes Received labs from [facility]. Placed in provider's inbox for review. Route to [place] scanning. documented in this encounter [facility] 12-03-2021 Miscellaneous Notes The following approved medication [...] No Authorizing Provider: MORENO OATES Pt in [facility]. She is seen monthly at facility Moreno Oates MD Last appointment: 12-12-19 Next appointment: na Pharmacy verified in [facility]. Refill(s) requested: Pending Prescriptions Disp Refills DIAZEPAM 5 MG TABLET 60 tablet 0 Sig: Take 1 tablet by mouth twice daily for 30 days. FABIOLA Class: C-IV LARISSA: No PREGABALIN 100 MG CAPSULE 60 capsule 0 Sig: Take 1 capsule by mouth twice daily for 30 days. FABIOLA Class: C-V LARISSA: No Order(s) pended. Please advise. Gabriela Castillo MA, [facility] documented in this encounter [facility] 11-25-2021 Miscellaneous Notes Fax sent. Received orders for Lyrica for PCP review and sign off from [facility] to be faxed to [facility]. Placed in provider's inbox for review. Route to [facility] fax documented in this encounter [facility] 11-21-2021 Miscellaneous Notes Received fax from [facility] that Pt c/o yeast infection. [facility] would like to know if any new orders are needed? Route to fax. documented in this encounter [facility] 11-19-2021 Miscellaneous Notes The following approved medication requests have been transmitted electronically. Signed Prescriptions Disp Refills oxyCODONE-acetaminophen (PERCOCET) 5-325 mg tablet 120 tablet 0 Sig: Take 1 tablet by mouth four times daily as needed for pain. FABIOLA Class: C-II LARISSA: No Authorizing Provider: MORENO OATES MD [facility] calling in regards to patients prescription: OxyCodone 5-325 mg tablet Pharmacy contacted them stating they only received a partial script and need a full script from provider. Pharmacy stated it was not signed and that things are missing from script. [facility] said to call pharmacy if any questions: [facility] documented in this encounter [facility] 11-19-2021 Miscellaneous Notes Received refill request from [facility]. Fax sent advising medication has been e-prescribed. documented in this encounter [facility] 11-18-2021 Miscellaneous Notes faxed Med refill request from [facility] for 4 tablets oxycodone 5-325 (pulled from starter box at [facility]). Placed in provider inbox for review. Route to fax. documented in this encounter [facility] 10-29-2021 Miscellaneous Notes The following approved medication requests have been transmitted electronically. Signed Prescriptions Disp Refills diazePAM (VALIUM) 5 mg tablet 60 tablet 0 Sig: Take 1 tablet by mouth twice daily for 30 days. FABIOLA Class: C-IV Authorizing Provider: MORENO OATES MD documented in this encounter [facility] 10-22-2021 Miscellaneous Notes Patient's request for medication [...] accordingly. Moreno Oates MD Pharmacy verified in [facility] Patient has been identified by name [...] Fadumo Rahman LPN documented in this encounter [facility] 10-09-2021 Miscellaneous Notes Pt lives at [facility]. The following approved medication requests have been transmitted electronically. Signed Prescriptions Disp Refills diazePAM (VALIUM) 5 mg tablet 60 tablet 0 Sig: Take 1 tablet by mouth every 12 hours as needed for up to 30 days. FABIOLA Class: C-IV LARISSA: No Authorizing Provider: MORENO OATES Pharmacy Information Pharmacy Address [facility]phone [employer] [address] [place] [address] Moreno Oates MD documented in this encounter [facility] 10-08-2021 Miscellaneous Notes Received request for sign off for medication from [facility] pharmacy. Placed in provider's inbox for review. Route to [place] fax documented in this encounter [facility] 10-07-2021 Miscellaneous Notes Received labs from [facility]. Placed in provider's inbox for review. Route to [place] scanning. documented in this encounter [facility] 10-04-2021 Miscellaneous Notes [facility] pt. The following approved medication requests have been transmitted electronically. Pending Prescriptions Disp Refills PREGABALIN 100 MG CAPSULE 60 capsule 0 Sig: Take 1 capsule by mouth twice daily for 30 days. FABIOLA Class: C-V LARISSA: No Moreno Oates MD Pharmacy verified in [facility] [...] Fadumo Rahman LPN documented in this encounter [facility] 09-27-2021 Miscellaneous Notes [facility] patient. documented in this encounter [facility] 08-27-2021 Miscellaneous Notes Addended by: SHAMIKA SILVEIRA on: 08/27/2021 01:58 PM Modules accepted: Orders Received 08/27/2021 from [facility]. Placed in provider's inbox for review. [facility] to [facility] for [facility] Order to be signed for Lyrica 100 mg BID documented in this encounter [facility] 08-26-2021 Miscellaneous Notes Pt at [facility], she's seen there monthly The following approved medication requests have been transmitted electronically. Signed Prescriptions Disp Refills diazePAM (VALIUM) 5 mg tablet 60 tablet 0 Sig: Take 1 tablet by mouth every 12 hours as needed for up to 30 days. FABIOLA Class: C-IV LARISSA: No Authorizing Provider: MORENO OATES MD Pharmacy verified in [facility] Patient has been identified by name [...] Shamika Silveira MA documented in this encounter [facility] 07-08-2021 Miscellaneous Notes Received 07/08/2021 from [facility] pharmacy. Placed in provider's inbox for review. [facility] to [facility] for [facility] and fax. documented in this encounter [facility] 01-15-2021 Hospital Discharge instructions Nehal Madden, - 01/15/2021 Please return to the ED for any fevers or shortness of breath. Otherwise resolved with your primary care physician as well as your orthopedic surgeon in the next few days. documented in this encounter [facility] Work Phone: 01-08-2021 Note HNO ID: [id number] Author: Jasen Ewing DO Service: Orthopaedic Surgery [...] ortho standpoint Please contact the orthopedic resident system consultant with any questions or concerns. ACTIVE PROBLEM [...] DO 01/08/2021 7:50 AM Orthopedic Surgery Resident [id number] [facility] 01-07-2021 Note HNO ID: [id number] Author: Jasen Ewing DO Service: Orthopaedic Surgery [...] previously instructed Please contact the orthopedic resident system consultant with any questions or concerns. ACTIVE PROBLEM [...] of Knee, Right (Hcc) Jasen Ewing DO 01/07/2021 12:28 PM Orthopedic Surgery Resident [id number] [facility] 01-07-2021 Note HNO ID: [id number] Author: Brina Peterson RN Service: Care Management Author Type: Registered Nurse Type: Care Mgt Initial Assessment Filed: 01/07/2021 11:17 AM Note Text: CARE MANAGEMENT: ASSESSMENT AND DISCHARGE PLAN SERVICE DATE: January 07, 2021 SERVICE TIME: 11:00 AM PRIMARY CARE PHYSICIAN: Moreno Oates MD ADMISSION STATUS: Inpatient Needs Prior to Discharge: To Be Determined;Accepting Facility;Discharge Transportation;Discharge Prescriptions MEDICAL: [place] MEDICA[place] Patient/Icu Clerk Stated Goals: To have reduction in symptoms;Other [...] Current Advance Directive: Health Care Power of Community Leader;Living Will In Chart: Yes Up To Date [...] facility) Has the Patient Been in a Nursing Home Facility in the Past 30 days?: Yes Location and Dates: [facility] (dates unknown- care home resident) SOCIAL: Living Arrangements: Nursing Facility Facility Information: [facility] Financial Resources: Disabled Primary Contact: Extended Emergency Contact Information Primary Emergency Contact: Callum Nguyen Mobile Relation: Son Supportive Patient Contact:: Yes Contact Resources: Family;Other Family Name/Phone: Vicente Driscoll/daughter [phone] POA Name/Phone: Callum Nguyen/[phone] Caregiver AssessmentCaregiver is ready, willing and able to meet the patient's needs as recommended by the inter-professional team:: Other: See Comment (To be determined) Does the patient have an acute stroke diagnosis, or has the patient had a stroke during this admission?: No Patient's transition needs and plan for meeting these needs: patient states plan is to return to [facility] Patient's perception of need for this admission: right knee pain, fever Medication Adherance I am convinced of the importance of my prescription medication: 0 - Agree Completely I worry that my prescription medication will do more harm than good to me : 0 - Disagree Mostly I feel financially burdened by my wst-lh-riiaag expenses for my prescription medication:: 0 - Disagree Completely Risk Score: 0 Patient is categorized as: Low risk < 2 Are you interested in bedside delivery of your medications? No Is Patient Psychosocially Complex?: No ASSESSMENT AND PLAN: Medical Needs: Medical Needs: IV Antibiotics;Two or more chronic diseases;Fall risk or frequent falls Psychosocial Needs: Psychosocial Needs: None FREEDOM OF CHOICE EXPLAINED: [place] of Choice Given: Yes (patient states plan is to return to [facility]) Provider list within the patient's requested geographic area shared with the patient/family: No Quality and resource use metrics shared with the patient that are relevant to the patient's goals of care and treatment preferences:: No Reason: patient decines states plan is to return to [facility] POTENTIAL TRANSITION PLANS To Be Determined;Nursing Home Facility/Intermediate Care Facility [facility] from [facility], for right knee pain AND fever. Patient states is care home resident at facility and plan is to return when medically cleared for discharge. PCP Dr. Moreno Oates. SIGNATURE: Brina Peterson RN PATIENT NAME: Charlie Nguyen DATE: January 07, 2021 MR (more content not included)... [facility] 01-07-2021 Note HNO ID: [id number] Author: Jasen Ewing DO Service: Orthopaedic Surgery Author Type: Resident Type: Plan of Care Filed: 01/07/2021 10:44 AM Note Text: Orthopedic Surgery Plan of Care Note Charlie Nguyen Ok for diet. No operative intervention today. Will discuss further management with staff. Continue IV antibiotics. Please contact the orthopedic resident system consultant with any questions or concerns. Jasen Ewing DO 01/07/2021 10:43 AM Orthopedic Surgery Resident [id number] [facility] 01-07-2021 Note HNO ID: [id number] Author: Kristen Melton APRN.ENERGY DERIVATIVES TRADER Service: General Internal Medicine Author Type: Nurse Practitioner Type: Progress Notes Filed: 01/07/2021 6:44 AM Note Text: Attestation signed by Milton Fernandez MD at 01/07/2021 2:32 PM I have reviewed the above note obtained and documented by the RURAL CARRIER ASSOCIATE/PA. I have discussed the case and management [...] Discussed with Dr Fernandez SIGNATURE: Kristen Melton APRN.ENERGY DERIVATIVES TRADER DATE: January 07, 2021 TIME: 6:21 AM [facility] 12-26-2020 Note HNO ID: [id number] Author: Kimberli Israel RN Service: Care Management [...] Arrangements: Ambulance/[place] Transportation Agency and Phone #:: [facility] [phone] Date of Trip: 12/26/20 Time of Trip: 183 Type of Service: BLS Non-emergency Is Patient Medicaid Pending?: No Discussion of financial coverage occurred with: (N/A) Cardiovascular Lab Director Location: [place] Destination: [facility] Financial Care Management Responsibility: None ADDITIONAL CONTACT RESOURCES: Discharge Information Row Name ED to Hosp-Admission (Current) from 12/19/2020 in [facility]/Vascular Nursing Home Facility Agency [facility] Needs Prior to Discharge: Ready for Discharge Transportation Arrangements: Ambulance/[place] Transportation Agency and Phone #:: [facility] [phone] Date of Trip: 12/26/20 Time of Trip: 1830 Type of Service: BLS Non-emergency Is Patient Medicaid Pending?: No Discussion of financial coverage occurred with: (N/A) Cardiovascular Lab Director Location: [place] Destination: [facility] Financial Care Management Responsibility: None Pt ready for d/c today. SIGNATURE: Kimberli Israel RN PATIENT NAME: Charlie Nguyen DATE: December 26, 2020 TIME: 4:48 PM PAGER/CONTACT #: Kimberli Israel [phone] or [phone] [facility] 12-26-2020 Note HNO ID: [id number] Author: Alexandria Reddy MD Service: Hospital Medicine Author Type: Physician Type: Progress Notes Filed: 12/26/2020 2:33 PM Note Text: DEPARTMENT OF HOSPITAL MEDICINE PROGRESS NOTE SERVICE DATE: 12/26/2020 SERVICE TIME: 2:31 PM Hospital Medicine/Primary Attending: Alexandria Reddy MD NIGHT AND WEEKEND COVERAGE: Patient admitted to [facility]. Page [phone] between 7 am and 5 pm for patient issues; from 5 p to 7 am, page the night hospitalist at pager [phone] Subjective INTERVAL HPI: Diarrhea improving Issues with [...] cap(s) (LYRICA) 100 mg ORAL BID - ezdzmqi-fyenmdkwq-mbfuuwf D3 500 mg(1,250mg) -200 unit 2 tablet [...] (Oral) Resp 16 Ht 180.3 cm (5' 11") Wt 105.2 kg (232 lb) LMP (LMP Unknown) SpO2 98% BMI 32.36 kg/m? Lying in bed. Upset, refusing exam Lines, Drains, and Airways Line Central Line Single Lumen 12/21/20 1200 Peripherally Inserted (PICC) Left Arm Through Introducer 4.0 Cypriot 5 days Drain External Collection Device 12/21/20 0930 5 days DATA: Diagnostic tests reviewed for today's visit: Most recent labs Most recent imaging Assessment/Plan Problem List Joint infection (HCC) POA: Yes Acute deep vein thrombosis (DVT) of right lower extremity (HCC) POA: Yes MS (multiple sclerosis) ([facility]) POA: Yes Essential hypertension POA: Yes Current smoker POA: Yes Chronic pain of right knee POA: Yes Seizure ([facility]) POA: Yes Dysuria POA: . HOSPITAL COURSE: [...] is after POD5 ? MS (multiple sclerosis) ([facility]) POA: Yes WC bound Urine and fecal incontinence LE parasthesia ? Essential hypertension POA: Yes Controlled - Continue Metoprolol; hold HCTZ? ? Current smoker POA: Yes - Nicotine patches ? Seizure ([facility]) POA: Yes - Continue Depakote ? Depressoin/Anxiety [...] 82012/25/20 1344 -- 12/19/202014 pneumatic compression stockings (fl,oh) 12/19/20 0900 activ (more content not included)... [facility] 12-25-2020 Note HNO ID: [id number] Author: Alexandria Reddy MD Service: Hospital Medicine Author Type: Physician Type: Progress Notes Filed: 12/25/2020 1:43 PM Note Text: DEPARTMENT OF HOSPITAL MEDICINE PROGRESS NOTE SERVICE DATE: 12/25/2020 SERVICE TIME: 1:35 PM Hospital Medicine/Primary Attending: Alexandria Reddy MD NIGHT AND WEEKEND COVERAGE: Patient admitted to [facility]. Page [phone] between 7 am and 5 pm for patient issues; from 5 p to 7 am, page the night hospitalist at pager [phone] Subjective INTERVAL HPI: Issues with hypotension earlier. [...] cap(s) (LYRICA) 100 mg ORAL BID - usipdfh-zuvupwwlv-sfkmuxi D3 500 mg(1,250mg) -200 unit 2 tablet [...] (Oral) Resp 15 Ht 180.3 cm (5' 11") Wt 105.2 kg (232 lb) LMP (LMP Unknown) SpO2 92% BMI 32.36 kg/m? Lying in bed. Upset, refusing exam Lines, Drains, and Airways Line Central Line Single Lumen 12/21/20 1200 Peripherally Inserted (PICC) Left Arm Through Introducer 4.0 Cypriot 4 days Drain External Collection Device 12/21/20 0930 4 days DATA: Diagnostic tests reviewed for today's visit: Most recent labs Most recent imaging Assessment/Plan Problem List Joint infection (HCC) POA: Yes Acute deep vein thrombosis (DVT) of right lower extremity (HCC) POA: Yes MS (multiple sclerosis) ([facility]) POA: Yes Essential hypertension POA: Yes Current smoker POA: Yes Chronic pain of right knee POA: Yes Seizure ([facility]) POA: Yes Dysuria POA: . HOSPITAL COURSE: [...] is after POD5 ? MS (multiple sclerosis) ([facility]) POA: Yes WC bound Urine and fecal [...] Last Action Orde (more content not included)... [facility] 12-25-2020 Note HNO ID: [id number] Author: Sanjana Tarango MD Service: Infectious Disease [...] cap(s) (LYRICA) 100 mg ORAL BID - aegtsqy-epmparljz-egkohmz D3 500 mg(1,250mg) -200 unit 2 tablet [...] every Thursday faxed to Sanjana Tarango at [phone] Okay for d/c from ID standpoint Sanjana Tarango MD ID Consultants Contact#: [phone] [facility] 12-24-2020 Note HNO ID: [id number] Author: Alexandria Reddy MD Service: Hospital Medicine Author Type: Physician Type: Progress Notes Filed: 12/24/2020 2:59 PM Note Text: DEPARTMENT OF HOSPITAL MEDICINE PROGRESS NOTE SERVICE DATE: 12/24/2020 SERVICE TIME: 2:55 PM Hospital Medicine/Primary Attending: Alexandria Reddy MD NIGHT AND WEEKEND COVERAGE: Patient admitted to [facility]. Page [phone] between 7 am and 5 pm for patient issues; from 5 p to 7 am, page the night hospitalist at pager [phone] Subjective INTERVAL HPI: Complaining that the nurses [...] cap(s) (LYRICA) 100 mg ORAL BID - ricojzk-gtbtalbvx-lqivizs D3 500 mg(1,250mg) -200 unit 2 tablet [...] (Oral) Resp 14 Ht 180.3 cm (5' 11") Wt 105.2 kg (232 lb) LMP (LMP Unknown) SpO2 94% BMI 32.36 kg/m? General appearance: well appearing, in no acute distress Neck: supple Lungs: Lungs clear to auscultation, No wheezing or rhonchi Heart: RRR Abdomen: Abdomen soft, non-tender. Extremities: Extremities (+) edema bilaterally Lines, Drains, and Airways Line Central Line Single Lumen 12/21/20 1200 Peripherally Inserted (PICC) Left Arm Through Introducer 4.0 Cypriot 3 days Drain External Collection Device 12/21/20 [...] 12/24 0906 12/19/20 (more content not included)... [facility] 12-24-2020 Note HNO ID: [id number] Author: Sanjana Tarango MD Service: Infectious Disease [...] cap(s) (LYRICA) 100 mg ORAL BID - mnmafzs-dsgvkejnf-cxwvvxa D3 500 mg(1,250mg) -200 unit 2 tablet [...] AM Sanjana Tarango MD [employer] Contact#: [phone] [facility] 12-23-2020 Note HNO ID: [id number] Author: Alexandria Reddy MD Service: Hospital Medicine Author Type: Physician Type: Progress Notes Filed: 12/23/2020 2:21 PM Note Text: DEPARTMENT OF HOSPITAL MEDICINE PROGRESS NOTE SERVICE DATE: 12/23/2020 SERVICE TIME: 2:20 PM Hospital Medicine/Primary Attending: Alexandria Reddy MD NIGHT AND WEEKEND COVERAGE: Patient admitted to [facility]. Page [phone] between 7 am and 5 pm for patient issues; from 5 p to 7 am, page the night hospitalist at pager [phone] Subjective INTERVAL HPI: Patient continues to complain [...] cap(s) (LYRICA) 100 mg ORAL BID - efrqnkm-ykhybyxbp-vqzlmky D3 500 mg(1,250mg) -200 unit 2 tablet [...] (Oral) Resp 14 Ht 180.3 cm (5' 11") Wt 105.2 kg (232 lb) LMP (LMP Unknown) SpO2 100% BMI 32.36 kg/m? General appearance: well appearing, in no acute distress Neck: supple Lungs: Lungs clear to auscultation, No wheezing or rhonchi Heart: RRR Abdomen: Abdomen soft, non-tender. Extremities: Extremities (+) edema bilaterally Lines, Drains, and Airways Line Central Line Single Lumen 12/21/20 1200 Peripherally Inserted (PICC) Left Arm Through Introducer 4.0 Cypriot 2 days Drain External Collection Device 12/21/20 [...] lonvenox for now ? MS (multiple sclerosis) ([facility]) POA: Yes WC bound Urine and fecal incontinence LE parasthesia - stable; CTM ? Essential hypertension POA: Yes Controlled - Continue Metoprolol; hold HCTZ? ? Current smoker POA: Yes - Nicotine patches ? Seizure ([facility]) POA: Yes - Continue Depakote ? Depressoin/Anxiety - c/w paxil and seroquil Medication and Non-Pharmacologic VTE Prophylaxis/Anticoagulants Anticoagulant AND Antiplatelet Medications (From admission, onward) Start Dose Route Frequency Last Action Ordered Stop 12/20/20 0900 enoxaparin 40 mg injection (LOVENOX) (Surgical Risk Categories) 40 mg SUBCUTANEOUS EVERY 24 HOURS Given, 12/23 1025 12/19/202004 -- 12/19/202014 pneumatic compression stockings (az,oh) 12/19/20 0900 activity - mobilize patient (more content not included)... [facility] 12-22-2020 Note HNO ID: [id number] Author: Alexandria Reddy MD Service: Hospital Medicine Author Type: Physician Type: Progress Notes Filed: 12/22/2020 3:25 PM Note Text: DEPARTMENT OF HOSPITAL MEDICINE PROGRESS NOTE SERVICE DATE: 12/22/2020 SERVICE TIME: 3:21 PM Hospital Medicine/Primary Attending: Alexandria Reddy MD NIGHT AND WEEKEND COVERAGE: Patient admitted to [facility]. Page [phone] between 7 am and 5 pm for patient issues; from 5 p to 7 am, page the night hospitalist at pager [phone] Subjective INTERVAL HPI: Patient seem drowsy but [...] cap(s) (LYRICA) 100 mg ORAL BID - igesjae-slghhuvmm-nvjsnir D3 500 mg(1,250mg) -200 unit 2 tablet [...] (Oral) Resp 18 Ht 180.3 cm (5' 11") Wt 105.2 kg (232 lb) LMP (LMP Unknown) SpO2 94% BMI 32.36 kg/m? General appearance: well appearing, in no acute distress Neck: supple Lungs: Lungs clear to auscultation, No wheezing or rhonchi Heart: RRR Abdomen: Abdomen soft, non-tender. Extremities: Extremities (+) edema bilaterally Lines, Drains, and Airways Line Central Line Single Lumen 12/21/20 1200 Peripherally Inserted (PICC) Left Arm Through Introducer 4.0 Cypriot 1 day Drain External Collection Device 12/21/20 0930 1 day DATA: Diagnostic tests reviewed for today's visit: Most recent labs Most recent imaging Assessment/Plan Problem List Joint infection (HCC) POA: Yes Acute deep vein thrombosis (DVT) of right lower extremity (HCC) POA: Yes MS (multiple sclerosis) ([facility]) POA: Yes Essential hypertension POA: Yes Current smoker POA: Yes Chronic pain of right knee POA: Yes Seizure ([facility]) POA: Yes Dysuria POA: . HOSPITAL COURSE: [...] lonvenox for now ? MS (multiple sclerosis) ([facility]) POA: Yes WC bound Urine and fecal [...] 12/22 93212/19/202004 -- 12/19/202014 pneumatic compression stockings (az,pr) 12/19/20 09 activity - mobilize patient (az,pr) VTE Prophylaxis: VTE prop (more content not included)... [facility] 12-22-2020 Note HNO ID: [id number] Author: Jasen Ewing DO Service: Orthopaedic Surgery [...] (Oral) Resp 18 Ht 180.3 cm (5' 11") Wt 105.2 kg (232 lb) LMP (LMP [...] sign off Please contact the orthopedic resident system consultant with any questions or concerns. 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 Author Type: ? Type: Progress Notes Filed: 12/22/2020 2:51 AM Note Text: Epic Scheduled Downtime: 12/22/2020 1:01:00 AM to 12/22/2020 2:33:00 AM [facility] 12-21-2020 Note HNO ID: [id number] Author: Maricel Levy MD Service: Hospital Medicine Author Type: Physician Type: Progress Notes Filed: 12/21/2020 4:16 PM Note Text: DEPARTMENT OF HOSPITAL MEDICINE PROGRESS NOTE SERVICE DATE: December 21, 2020 SERVICE TIME: 10:42 AM Hospital Medicine/Primary Attending: Maricel Levy MD NIGHT AND WEEKEND COVERAGE: NIGHT AND WEEKEND COVERAGE: [facility] COVERAGE: Patient admitted to Hospitalist Service From 699 - 1629, please contact pager listed in Epic for patient issues. From 1629 - 699, please contact the Night Hospitalist on pager [phone] for patient issues. Subjective INTERVAL HPI: No overnight events. S/p arthrocentesis and wash out on 12/19. Continued to have severe pain in R-joint, asking to escalate pain meds to oxycodone 10 mg instead of 5 mg PRN. Agreed. No new complaints. MEDICATIONS: Reviewed. Objective PHYSICAL EXAM: BP 105/64 Pulse 78 Temp (Src) 97.7 (Oral) Resp 18 Ht 5' 11" (1.80m) Wt 232 lb (105.2kg) SpO2 98% [...] Inserted (PICC) Left Arm Through Introducer 4.0 Cypriot <1 day Drain External Collection Device 12/21/20 [...] after POD5 (today POD2) MS (multiple sclerosis) ([facility]) POA: Yes WC bound Urine and fecal incontinence LE parasthesia - stable; CTM Essential hypertension POA: Yes Controlled - Continue Metoprolol; hold HCTZ Current smoker POA: Yes - Nicotine patches Seizure ([facility]) POA: Yes - Continue Depakote Depressoin/Anxiety - [...] 21, 2020 TIME: 4:16 PM PAGER/CONTACT #: [phone] [facility] 12-21-2020 Note HNO ID: [id number] Author: Chaitanya Champagne RN Service: PICC Team Author Type: Registered Nurse Type: Procedures Filed: 12/21/2020 12:55 PM Note Text: PICC NURSE INSERTION NOTE DATE OF PROCEDURE: December 21, 2020 TIME OF PROCEDURE: 1120 ORDERING PHYSICIAN: Dr. Sanjana Tarango INFORMED CONSENT: Obtained per hospital policy. INDICATION FOR LINE PLACEMENT: COPAT CONDITION OF LINE PLACEMENT: Sterile PRIMARY PROCEDURALIST: Chaitanya Champagne R.N. [place] - NETWORK SYSTEMS CONSULTANT: Kimberly Headley R.N. PRE-PROCEDURE REVIEW ALLERGIES Allergen Reactions - Nsaids (Non-Steroid* GI Upset - Gabapentin GI Upset - Macrobid [Nitrofura* Hives - Tramadol Contraindication-Medical Surgical Drug interaction with amitriptyline - told not to take due to increased seizure risk - [place] [Hydrocodone-* GI Upset Didn't do anything for [...] applicable. Chaitanya Champagne RN CATHETER PLACEMENT Brand: BARD Lot: [id number] Number of Lumens: 1 Type of PICC: Power Injectable PICC Lumen Size: 4 Cypriot PLACEMENT TECHNIQUE Lidocaine: Yes, Lidocaine 1% Volume [...] patient, Report provided to Ali bedside nurse. [place] limb alert applied The [facility] Central Line Insertion checklist, attached to the Central Line-Associated Bloodstream Infection Prevention Policy, was utilized during this procedure. QUESTIONS or PROBLEMS: [facility] radiology PICC Nurse SIGNATURE: Chaitanya Champagne RN PATIENT NAME: Charlie Nguyen DATE: December 21, 2020 TIME: 12:47 PM PA (more content not included)... [facility] 12-21-2020 Note HNO ID: [id number] Author: Sandra Cruz RN Service: Care Management [...] ID recs Thursday. Plan to return to [facility] on dc, updated notes sent to facility. Will require updated COVID prior to discharge. SIGNATURE: Sandra Cruz RN PATIENT NAME: Charlie Nguyen DATE: December 21, 2020 TIME: 10:50 AM PAGER/CONTACT #: [phone] [facility] 12-21-2020 Note HNO ID: [id number] Author: Jasen Ewing DO Service: Orthopaedic Surgery [...] (Oral) Resp 22 Ht 180.3 cm (5' 11") Wt 105.2 kg (232 lb) LMP (LMP [...] needs facility Please contact the orthopedic resident system consultant with any questions or concerns. ACTIVE PROBLEM [...] DO 12/21/2020 9:25 AM Orthopedic Surgery Resident [id number] [facility] 12-21-2020 Note HNO ID: [id number] Author: Sanjana Tarango MD Service: Infectious Disease [...] cap(s) (LYRICA) 100 mg ORAL BID - pffbatw-vdijjhcmh-fyhswzs D3 500 mg(1,250mg) -200 unit 2 tablet [...] BP Temp Temp src Pulse Resp SpO2 07/23/21 0726 116/68 36.3 ?C (97.3 ?F) Oral [...] concerns. Sanjana Tarango MD [employer] Contact#: [phone] [facility] 12-20-2020 Note HNO ID: [id number] Author: Maricel Levy MD Service: Hospital Medicine Author Type: Physician Type: Progress Notes Filed: 12/20/2020 4:55 PM Note Text: DEPARTMENT OF HOSPITAL MEDICINE PROGRESS NOTE SERVICE DATE: December 20, 2020 SERVICE TIME: 3:42 PM Hospital Medicine/Primary Attending: Maricel Levy MD NIGHT AND WEEKEND COVERAGE: NIGHT AND WEEKEND COVERAGE: [facility] COVERAGE: Patient admitted to Hospitalist Service From 0700 - 163, please contact pager listed in Epic for patient issues. From 163 - 07, please contact the Night Hospitalist on pager [phone] for patient issues. Subjective INTERVAL HPI: No overnight events. S/p arthrocentesis and wash out on 12/19. Continued to have pain in R-joint. No new complaints. MEDICATIONS: Reviewed. Objective PHYSICAL EXAM: BP 107/61 Pulse 63 Temp (Src) 97.7 (Oral) Resp 18 Ht 5' 11" (1.80m) Wt 232 lb (105.2kg) SpO2 94% [...] 20, 2020 TIME: 4:55 PM PAGER/CONTACT #: [phone] [facility] 12-20-2020 Note HNO ID: [id number] Author: Fadumo Tinsley PA-C Service: Anesthesiology Author Type: Physician Airport Utility Worker Type: Progress Notes Filed: 12/20/2020 9:06 AM [...] sessions: Pending. 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 ALLERGIES Allergen Reactions - Nsaids (Non-Steroid* GI Upset - Gabapentin GI Upset - Macrobid [Nitrofura* Hives - Tramadol Contraindication-Medical Surgical Drug interaction with amitriptyline - told not to take due to increased seizure risk - [place] [Hydrocodone-* GI Upset Didn't do anything for [...] cap(s) (LYRICA) 100 mg ORAL BID - dblkfts-vpsaohwpl-cxqyein D3 500 mg(1,250mg) -200 unit 2 tablet [...] DATE: December 20, 2020 TIME: 8:59 AM [facility] 12-20-2020 Note HNO ID: [id number] Author: Jasen Ewing DO Service: Orthopaedic Surgery [...] (Oral) Resp 16 Ht 180.3 cm (5' 11") Wt 105.2 kg (232 lb) LMP (LMP [...] PT recs Please contact the orthopedic resident system consultant with any questions or concerns. ACTIVE PROBLEM [...] Prosthetic Right Knee Joint (Hcc) Joint Infection ([facility]) Dysuria Jasen Ewing DO 12/20/2020 8:37 AM Orthopedic Surgery Resident [id number] [facility] 12-19-2020 Note HNO ID: [id number] Author: Aubrey Jensen MD Service: Hospital Medicine Author Type: Physician Type: Plan of Care Filed: 12/19/2020 9:32 PM Note Text: Patient reports of taking percocet POA>. Reviewed PDMP. Ordered percocet overnight. Primary team to reassess in am. [facility] 12-19-2020 Note HNO ID: [id number] Author: Tenisha Ly APRN.MOVING CONSULTANT Service: Anesthesiology Author Type: Nurse Dehydrator Tender Type: Anesthesia Procedure Notes Filed: 12/19/2020 3:49 PM Note Text: ANESTHESIOLOGY PROCEDURE NOTE PIV General Information Patient Location: OR Staffing MOVING CONSULTANT: Tenisha Ly APRN.MOVING CONSULTANT Preparation Sterility Preparation: hand hygiene performed prior to procedure, surgical cap used, mask used, skin prep agent completely dried prior to procedure Site Prep: alcohol Procedure Details Indication: need for IV access Needle Size/Type: 18 gauge angiocath Orientation: Left Location: Forearm Imaging Guidance Used: No SIGNATURE: Tenisha Ly APRN.MOVING CONSULTANT PATIENT NAME: Charlie Nguyen DATE: December 19, 2020 TIME: 3:49 PM CSN: [id number] [facility] 12-19-2020 Note HNO ID: [id number] Author: Tenisha Ly APRN.MOVING CONSULTANT Service: Anesthesiology Author Type: Nurse Dehydrator Tender Type: Anesthesia Procedure Notes Filed: 12/19/2020 3:49 PM Note Text: ANESTHESIOLOGY PROCEDURE NOTE Airway General Information Procedure Start Time/Medication Administration: 12/19/2020 3:40 PM Patient location during procedure: OR Patient identity confirmed: arm band Staffing MOVING CONSULTANT: Tenisha Ly APRN.MOVING CONSULTANT Indications and Patient Condition Preoxygenated: yes Difficult [...] 1 Airway not difficult SIGNATURE: Tenisha Ly APRN.MOVING CONSULTANT PATIENT NAME: Charlie Nguyen DATE: December 19, 2020 TIME: 3:48 PM CSN: [id number] [facility] 12-19-2020 Note HNO ID: [id number] Author: Radha Mcpherson MD Service: Anesthesiology Author Type: Anesthesiologist Type: Anesthesia Procedure Notes Filed: 12/19/2020 2:33 PM Note Text: ANESTHESIOLOGY PROCEDURE NOTE Peripheral Nerve Block General Information Procedure Start Time/Medication Administration: 12/19/2020 2:00 PM Procedure End time: 12/19/2020 2:03 PM Patient location during procedure: pre-op Timeout Performed Pre-procedure: timeout performed Consent Obtained: Yes Patient identity confirmed: arm band, 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 cafe team member Reason for block: post-op pain management/at surgeon's [...] December 19, 2020 TIME: 2:32 PM CSN: [id number] [facility] 12-19-2020 Note HNO ID: [id number] Author: Senait Girard RN Service: Nursing Author Type: Registered Nurse Type: Nursing Progress Note Filed: 12/19/2020 2:04 PM Note Text: NO sedation used except local Patient tolerated procedure very well [facility] 11-26-2017 History of Past i llness Narrative [...] Overview: Added automatically from request for surgery [id number] Acute pain of right knee 06/25/2017 018 Overview: Added automatically from request for surgery [id number] Patellar dislocation, right, initial encounter 1 06/20/2016 04/21/2017 Status post total knee replacement using cement, right 04/16/2017 04/21/2017 Overview: Added automatically from request for surgery [id number] Acute pain of right knee 04/16/2017 017 Overview: Added automatically from request for surgery [id number] SUMMARY 04/03/2017 04/17/2017 Overview: Admit date: 04/03/2017 Reason for Admission/Observation: Unable to function Presentation: Patient is a 61-year-old female with PMH of [place], osteoarthritis, MRSA and herniated disc of the [...] of this encounter (statuses as of 08/26/2021) [facility]2018 History of Past illness Narrative* Problem Noted [...] Overview: Added automatically from request for surgery [id number] Acute pain of right knee 06/25/2017 018 Overview: Added automatically from request for surgery [id number] Patellar dislocation, right, initial encounter 1 06/20/2016 04/21/2017 Status post total knee replacement using cement, right 04/16/2017 04/21/2017 Overview: Added automatically from request for surgery [id number] Acute pain of right knee 04/16/2017 017 Overview: Added automatically from request for surgery [id number] SUMMARY 04/03/2017 04/17/2017 Overview: Admit date: 04/03/2017 Reason for Admission/Observation: Unable to function Presentation: Patient is a 61-year-old female with PMH of [place], osteoarthritis, MRSA and herniated disc of the [...] of this encounter (statuses as of 08/27/2021) [facility] History of Past illness Narrative* Problem Noted [...] Overview: Added automatically from request for surgery [id number] Acute pain of right knee 06/25/2017 018 Overview: Added automatically from request for surgery [id number] Patellar dislocation, right, initial encounter 1 06/20/2016 04/21/2017 Status post total knee replacement using cement, right 04/16/2017 04/21/2017 Overview: Added automatically from request for surgery [id number] Acute pain of right knee 04/16/2017 017 Overview: Added automatically from request for surgery [id number] SUMMARY 04/03/2017 04/17/2017 Overview: Admit date: 04/03/2017 Reason for Admission/Observation: Unable to function Presentation: Patient is a 61-year-old female with PMH of [place], osteoarthritis, MRSA and herniated disc of the [...] of this encounter (statuses as of 08/27/2021) [facility] History of Past illness Narrative* Problem Noted [...] Overview: Added automatically from request for surgery [id number] Acute pain of right knee 06/25/2017 018 Overview: Added automatically from request for surgery [id number] Patellar dislocation, right, initial encounter 1 06/20/2016 04/21/2017 Status post total knee replacement using cement, right 04/16/2017 04/21/2017 Overview: Added automatically from request for surgery [id number] Acute pain of right knee 04/16/2017 017 Overview: Added automatically from request for surgery [id number] SUMMARY 04/03/2017 04/17/2017 Overview: Admit date: 04/03/2017 Reason for Admission/Observation: Unable to function Presentation: Patient is a 61-year-old female with PMH of [place], osteoarthritis, MRSA and herniated disc of the [...] of this encounter (statuses as of 09/27/2021) [facility] History of Past illness Narrative* Problem Noted [...] Overview: Added automatically from request for surgery [id number] Acute pain of right knee 06/25/2017 018 Overview: Added automatically from request for surgery [id number] Patellar dislocation, right, initial encounter 1 06/20/2016 04/21/2017 Status post total knee replacement using cement, right 04/16/2017 04/21/2017 Overview: Added automatically from request for surgery [id number] Acute pain of right knee 04/16/2017 017 Overview: Added automatically from request for surgery [id number] SUMMARY 04/03/2017 04/17/2017 Overview: Admit date: 04/03/2017 Reason for Admission/Observation: Unable to function Presentation: Patient is a 61-year-old female with PMH of [place], osteoarthritis, MRSA and herniated disc of the [...] of this encounter (statuses as of 10/04/2021) [facility] History of Past illness Narrative* Problem Noted [...] Overview: Added automatically from request for surgery [id number] Acute pain of right knee 06/25/2017 018 Overview: Added automatically from request for surgery [id number] Patellar dislocation, right, initial encounter 1 06/20/2016 04/21/2017 Status post total knee replacement using cement, right 04/16/2017 04/21/2017 Overview: Added automatically from request for surgery [id number] Acute pain of right knee 04/16/2017 017 Overview: Added automatically from request for surgery [id number] SUMMARY 04/03/2017 04/17/2017 Overview: Admit date: 04/03/2017 Reason for Admission/Observation: Unable to function Presentation: Patient is a 61-year-old female with PMH of [place], osteoarthritis, MRSA and herniated disc of the [...] of this encounter (statuses as of 10/07/2021) [facility] History of Past illness Narrative* Problem Noted [...] Overview: Added automatically from request for surgery [id number] Acute pain of right knee 06/25/2017 018 Overview: Added automatically from request for surgery [id number] Patellar dislocation, right, initial encounter 1 06/20/2016 04/21/2017 Status post total knee replacement using cement, right 04/16/2017 04/21/2017 Overview: Added automatically from request for surgery [id number] Acute pain of right knee 04/16/2017 017 Overview: Added automatically from request for surgery [id number] SUMMARY 04/03/2017 04/17/2017 Overview: Admit date: 04/03/2017 Reason for Admission/Observation: Unable to function Presentation: Patient is a 61-year-old female with PMH of [place], osteoarthritis, MRSA and herniated disc of the [...] of this encounter (statuses as of 10/08/2021) [facility] History of Past illness Narrative* Problem Noted [...] Overview: Added automatically from request for surgery [id number] Acute pain of right knee 06/25/2017 018 Overview: Added automatically from request for surgery [id number] Patellar dislocation, right, initial encounter 1 06/20/2016 04/21/2017 Status post total knee replacement using cement, right 04/16/2017 04/21/2017 Overview: Added automatically from request for surgery [id number] Acute pain of right knee 04/16/2017 017 Overview: Added automatically from request for surgery [id number] SUMMARY 04/03/2017 04/17/2017 Overview: Admit date: 04/03/2017 Reason for Admission/Observation: Unable to function Presentation: Patient is a 61-year-old female with PMH of [place], osteoarthritis, MRSA and herniated disc of the [...] of this encounter (statuses as of 10/14/2021) [facility] History of Past illness Narrative* Problem Noted [...] Overview: Added automatically from request for surgery [id number] Acute pain of right knee 06/25/2017 018 Overview: Added automatically from request for surgery [id number] Patellar dislocation, right, initial encounter 1 06/20/2016 04/21/2017 Status post total knee replacement using cement, right 04/16/2017 04/21/2017 Overview: Added automatically from request for surgery [id number] Acute pain of right knee 04/16/2017 017 Overview: Added automatically from request for surgery [id number] SUMMARY 04/03/2017 04/17/2017 Overview: Admit date: 04/03/2017 Reason for Admission/Observation: Unable to function Presentation: Patient is a 61-year-old female with PMH of [place], osteoarthritis, MRSA and herniated disc of the [...] of this encounter (statuses as of 10/22/2021) [place] [facility]-28-2018 History of Past illness Narrative* Problem Noted [...] Overview: Added automatically from request for surgery [id number] Acute pain of right knee 06/25/2017 018 Overview: Added automatically from request for surgery [id number] Patellar dislocation, right, initial encounter 1 06/20/2016 04/21/2017 Status post total knee replacement using cement, right 04/16/2017 04/21/2017 Overview: Added automatically from request for surgery [id number] Acute pain of right knee 04/16/2017 017 Overview: Added automatically from request for surgery [id number] SUMMARY 04/03/2017 04/17/2017 Overview: Admit date: 04/03/2017 Reason for Admission/Observation: Unable to function Presentation: Patient is a 61-year-old female with PMH of [place], osteoarthritis, MRSA and herniated disc of the [...] of this encounter (statuses as of 10/29/2021) [facility] History of Past illness Narrative* Problem Noted [...] Overview: Added automatically from request for surgery [id number] Acute pain of right knee 06/25/2017 018 Overview: Added automatically from request for surgery [id number] Patellar dislocation, right, initial encounter 1 06/20/2016 04/21/2017 Status post total knee replacement using cement, right 04/16/2017 04/21/2017 Overview: Added automatically from request for surgery [id number] Acute pain of right knee 04/16/2017 017 Overview: Added automatically from request for surgery [id number] SUMMARY 04/03/2017 04/17/2017 Overview: Admit date: 04/03/2017 Reason for Admission/Observation: Unable to function Presentation: Patient is a 61-year-old female with PMH of [place], osteoarthritis, MRSA and herniated disc of the [...] of this encounter (statuses as of 11/18/2021) [facility] History of Past illness Narrative* Problem Noted [...] Overview: Added automatically from request for surgery [id number] Acute pain of right knee 06/25/2017 018 Overview: Added automatically from request for surgery [id number] Patellar dislocation, right, initial encounter 1 06/20/2016 04/21/2017 Status post total knee replacement using cement, right 04/16/2017 04/21/2017 Overview: Added automatically from request for surgery [id number] Acute pain of right knee 04/16/2017 017 Overview: Added automatically from request for surgery [id number] SUMMARY 04/03/2017 04/17/2017 Overview: Admit date: 04/03/2017 Reason for Admission/Observation: Unable to function Presentation: Patient is a 61-year-old female with PMH of [place], osteoarthritis, MRSA and herniated disc of the [...] of this encounter (statuses as of 11/19/2021) [facility] History of Past illness Narrative* Problem Noted [...] Overview: Added automatically from request for surgery [id number] Acute pain of right knee 06/25/2017 018 Overview: Added automatically from request for surgery [id number] Patellar dislocation, right, initial encounter 1 06/20/2016 04/21/2017 Status post total knee replacement using cement, right 04/16/2017 04/21/2017 Overview: Added automatically from request for surgery [id number] Acute pain of right knee 04/16/2017 017 Overview: Added automatically from request for surgery [id number] SUMMARY 04/03/2017 04/17/2017 Overview: Admit date: 04/03/2017 Reason for Admission/Observation: Unable to function Presentation: Patient is a 61-year-old female with PMH of [place], osteoarthritis, MRSA and herniated disc of the [...] of this encounter (statuses as of 11/20/2021) [facility] History of Past illness Narrative* Problem Noted [...] Overview: Added automatically from request for surgery [id number] Acute pain of right knee 06/25/2017 018 Overview: Added automatically from request for surgery [id number] Patellar dislocation, right, initial encounter 1 06/20/2016 04/21/2017 Status post total knee replacement using cement, right 04/16/2017 04/21/2017 Overview: Added automatically from request for surgery [id number] Acute pain of right knee 04/16/2017 017 Overview: Added automatically from request for surgery [id number] SUMMARY 04/03/2017 04/17/2017 Overview: Admit date: 04/03/2017 Reason for Admission/Observation: Unable to function Presentation: Patient is a 61-year-old female with PMH of [place], osteoarthritis, MRSA and herniated disc of the [...] of this encounter (statuses as of 11/21/2021) [facility] History of Past illness Narrative* Problem Noted [...] Overview: Added automatically from request for surgery [id number] Acute pain of right knee 06/25/2017 018 Overview: Added automatically from request for surgery [id number] Patellar dislocation, right, initial encounter 1 06/20/2016 04/21/2017 Status post total knee replacement using cement, right 04/16/2017 04/21/2017 Overview: Added automatically from request for surgery [id number] Acute pain of right knee 04/16/2017 017 Overview: Added automatically from request for surgery [id number] SUMMARY 04/03/2017 04/17/2017 Overview: Admit date: 04/03/2017 Reason for Admission/Observation: Unable to function Presentation: Patient is a 61-year-old female with PMH of [place], osteoarthritis, MRSA and herniated disc of the [...] of this encounter (statuses as of 11/25/2021) [facility] History of Past illness Narrative* Problem Noted [...] Overview: Added automatically from request for surgery [id number] Acute pain of right knee 06/25/2017 018 Overview: Added automatically from request for surgery [id number] Patellar dislocation, right, initial encounter 1 06/20/2016 04/21/2017 Status post total knee replacement using cement, right 04/16/2017 04/21/2017 Overview: Added automatically from request for surgery [id number] Acute pain of right knee 04/16/2017 017 Overview: Added automatically from request for surgery [id number] SUMMARY 04/03/2017 04/17/2017 Overview: Admit date: 04/03/2017 Reason for Admission/Observation: Unable to function Presentation: Patient is a 61-year-old female with PMH of [place], osteoarthritis, MRSA and herniated disc of the [...] of this encounter (statuses as of 12/03/2021) [facility] History of Past illness Narrative* Problem Noted [...] Overview: Added automatically from request for surgery [id number] Acute pain of right knee 06/25/2017 018 Overview: Added automatically from request for surgery [id number] Patellar dislocation, right, initial encounter 1 06/20/2016 04/21/2017 Status post total knee replacement using cement, right 04/16/2017 04/21/2017 Overview: Added automatically from request for surgery [id number] Acute pain of right knee 04/16/2017 017 Overview: Added automatically from request for surgery [id number] SUMMARY 04/03/2017 04/17/2017 Overview: Admit date: 04/03/2017 Reason for Admission/Observation: Unable to function Presentation: Patient is a 61-year-old female with PMH of [place], osteoarthritis, MRSA and herniated disc of the [...] of this encounter (statuses as of 12/09/2021) [facility] History of Past illness Narrative* Problem Noted [...] Overview: Added automatically from request for surgery [id number] Acute pain of right knee 06/25/2017 018 Overview: Added automatically from request for surgery [id number] Patellar dislocation, right, initial encounter 1 06/20/2016 04/21/2017 Status post total knee replacement using cement, right 04/16/2017 04/21/2017 Overview: Added automatically from request for surgery [id number] Acute pain of right knee 04/16/2017 017 Overview: Added automatically from request for surgery [id number] SUMMARY 04/03/2017 04/17/2017 Overview: Admit date: 04/03/2017 Reason for Admission/Observation: Unable to function Presentation: Patient is a 61-year-old female with PMH of [place], osteoarthritis, MRSA and herniated disc of the [...] of this encounter (statuses as of 12/23/2021) [facility] History of Past illness Narrative* Problem Noted [...] Overview: Added automatically from request for surgery [id number] Acute pain of right knee 06/25/2017 018 Overview: Added automatically from request for surgery [id number] Patellar dislocation, right, initial encounter 1 06/20/2016 04/21/2017 Status post total knee replacement using cement, right 04/16/2017 04/21/2017 Overview: Added automatically from request for surgery [id number] Acute pain of right knee 04/16/2017 017 Overview: Added automatically from request for surgery [id number] SUMMARY 04/03/2017 04/17/2017 Overview: Admit date: 04/03/2017 Reason for Admission/Observation: Unable to function Presentation: Patient is a 61-year-old female with PMH of [place], osteoarthritis, MRSA and herniated disc of the [...] of this encounter (statuses as of 12/30/2021) [facility] History of Past illness Narrative* Problem Noted [...] Overview: Added automatically from request for surgery [id number] Acute pain of right knee 06/25/2017 018 Overview: Added automatically from request for surgery [id number] Patellar dislocation, right, initial encounter 1 06/20/2016 04/21/2017 Status post total knee replacement using cement, right 04/16/2017 04/21/2017 Overview: Added automatically from request for surgery [id number] Acute pain of right knee 04/16/2017 017 Overview: Added automatically from request for surgery [id number] SUMMARY 04/03/2017 04/17/2017 Overview: Admit date: 04/03/2017 Reason for Admission/Observation: Unable to function Presentation: Patient is a 61-year-old female with PMH of [place], osteoarthritis, MRSA and herniated disc of the [...] of this encounter (statuses as of 01/07/2022) [facility] History of Past illness Narrative* Problem Noted [...] Overview: Added automatically from request for surgery [id number] Acute pain of right knee 06/25/2017 018 Overview: Added automatically from request for surgery [id number] Patellar dislocation, right, initial encounter 1 06/20/2016 04/21/2017 Status post total knee replacement using cement, right 04/16/2017 04/21/2017 Overview: Added automatically from request for surgery [id number] Acute pain of right knee 04/16/2017 017 Overview: Added automatically from request for surgery [id number] SUMMARY 04/03/2017 04/17/2017 Overview: Admit date: 04/03/2017 Reason for Admission/Observation: Unable to function Presentation: Patient is a 61-year-old female with PMH of [place], osteoarthritis, MRSA and herniated disc of the [...] of this encounter (statuses as of 02/05/2022) [facility] History of Past illness Narrative* Problem Noted [...] Overview: Added automatically from request for surgery [id number] Acute pain of right knee 06/25/2017 018 Overview: Added automatically from request for surgery [id number] Patellar dislocation, right, initial encounter 1 06/20/2016 04/21/2017 Status post total knee replacement using cement, right 04/16/2017 04/21/2017 Overview: Added automatically from request for surgery [id number] Acute pain of right knee 04/16/2017 017 Overview: Added automatically from request for surgery [id number] SUMMARY 04/03/2017 04/17/2017 Overview: Admit date: 04/03/2017 Reason for Admission/Observation: Unable to function Presentation: Patient is a 61-year-old female with PMH of [place], osteoarthritis, MRSA and herniated disc of the [...] of this encounter (statuses as of 02/10/2022) [facility] History of Past illness Narrative* Problem Noted [...] Overview: Added automatically from request for surgery [id number] Acute pain of right knee 06/25/2017 018 Overview: Added automatically from request for surgery [id number] Patellar dislocation, right, initial encounter 1 06/20/2016 04/21/2017 Status post total knee replacement using cement, right 04/16/2017 04/21/2017 Overview: Added automatically from request for surgery [id number] Acute pain of right knee 04/16/2017 017 Overview: Added automatically from request for surgery [id number] SUMMARY 04/03/2017 04/17/2017 Overview: Admit date: 04/03/2017 Reason for Admission/Observation: Unable to function Presentation: Patient is a 61-year-old female with PMH of [place], osteoarthritis, MRSA and herniated disc of the [...] of this encounter (statuses as of 02/12/2022) [facility] History of Past illness Narrative* Problem Noted [...] Overview: Added automatically from request for surgery [id number] Acute pain of right knee 06/25/2017 018 Overview: Added automatically from request for surgery [id number] Patellar dislocation, right, initial encounter 1 06/20/2016 04/21/2017 Status post total knee replacement using cement, right 04/16/2017 04/21/2017 Overview: Added automatically from request for surgery [id number] Acute pain of right knee 04/16/2017 017 Overview: Added automatically from request for surgery [id number] SUMMARY 04/03/2017 04/17/2017 Overview: Admit date: 04/03/2017 Reason for Admission/Observation: Unable to function Presentation: Patient is a 61-year-old female with PMH of [place], osteoarthritis, MRSA and herniated disc of the [...] of this encounter (statuses as of 02/13/2022) [facility] of Past illness Narrative* Problem Noted [...] Overview: Added automatically from request for surgery [id number] Acute pain of right knee 06/25/2017 018 Overview: Added automatically from request for surgery [id number] Patellar dislocation, right, initial encounter 1 06/20/2016 04/21/2017 Status post total knee replacement using cement, right 04/16/2017 04/21/2017 Overview: Added automatically from request for surgery [id number] Acute pain of right knee 04/16/2017 017 Overview: Added automatically from request for surgery [id number] SUMMARY 04/03/2017 04/17/2017 Overview: Admit date: 04/03/2017 Reason for Admission/Observation: Unable to function Presentation: Patient is a 61-year-old female with PMH of [place], osteoarthritis, MRSA and herniated disc of the [...] of this encounter (statuses as of 03/06/2022) [facility] History of Past illness Narrative* Problem Noted [...] Overview: Added automatically from request for surgery [id number] Acute pain of right knee 06/25/2017 018 Overview: Added automatically from request for surgery [id number] Patellar dislocation, right, initial encounter 1 06/20/2016 04/21/2017 Status post total knee replacement using cement, right 04/16/2017 04/21/2017 Overview: Added automatically from request for surgery [id number] Acute pain of right knee 04/16/2017 017 Overview: Added automatically from request for surgery [id number] SUMMARY 04/03/2017 04/17/2017 Overview: Admit date: 04/03/2017 Reason for Admission/Observation: Unable to function Presentation: Patient is a 61-year-old female with PMH of [place], osteoarthritis, MRSA and herniated disc of the [...] of this encounter (statuses as of 03/10/2022) [facility] History of Past illness Narrative* Problem Noted [...] Overview: Added automatically from request for surgery [id number] Acute pain of right knee 06/25/2017 018 Overview: Added automatically from request for surgery [id number] Patellar dislocation, right, initial encounter 1 06/20/2016 04/21/2017 Status post total knee replacement using cement, right 04/16/2017 04/21/2017 Overview: Added automatically from request for surgery [id number] Acute pain of right knee 04/16/2017 017 Overview: Added automatically from request for surgery [id number] SUMMARY 04/03/2017 04/17/2017 Overview: Admit date: 04/03/2017 Reason for Admission/Observation: Unable to function Presentation: Patient is a 61-year-old female with PMH of [place], osteoarthritis, MRSA and herniated disc of the [...] of this encounter (statuses as of 03/12/2022) [facility] History of Past illness Narrative* Problem Noted [...] Overview: Added automatically from request for surgery [id number] Acute pain of right knee 06/25/2017 018 Overview: Added automatically from request for surgery [id number] Patellar dislocation, right, initial encounter 1 06/20/2016 04/21/2017 Status post total knee replacement using cement, right 04/16/2017 04/21/2017 Overview: Added automatically from request for surgery [id number] Acute pain of right knee 04/16/2017 017 Overview: Added automatically from request for surgery [id number] SUMMARY 04/03/2017 04/17/2017 Overview: Admit date: 04/03/2017 Reason for Admission/Observation: Unable to function Presentation: Patient is a 61-year-old female with PMH of [place], osteoarthritis, MRSA and herniated disc of the [...] of this encounter (statuses as of 03/17/2022) [facility] of Past illness Narrative* Problem Noted [...] Overview: Added automatically from request for surgery [id number] Acute pain of right knee 06/25/2017 018 Overview: Added automatically from request for surgery [id number] Patellar dislocation, right, initial encounter 1 06/20/2016 04/21/2017 Status post total knee replacement using cement, right 04/16/2017 04/21/2017 Overview: Added automatically from request for surgery [id number] Acute pain of right knee 04/16/2017 017 Overview: Added automatically from request for surgery [id number] SUMMARY 04/03/2017 04/17/2017 Overview: Admit date: 04/03/2017 Reason for Admission/Observation: Unable to function Presentation: Patient is a 61-year-old female with PMH of [place], osteoarthritis, MRSA and herniated disc of the [...] of this encounter (statuses as of 03/18/2022) [place] [id number] History of Past illness Narrative* Problem Noted [...] Overview: Added automatically from request for surgery [id number] Acute pain of right knee 06/25/2017 018 Overview: Added automatically from request for surgery [id number] Patellar dislocation, right, initial encounter 1 06/20/2016 04/21/2017 Status post total knee replacement using cement, right 04/16/2017 04/21/2017 Overview: Added automatically from request for surgery [id number] Acute pain of right knee 04/16/2017 017 Overview: Added automatically from request for surgery [id number] SUMMARY 04/03/2017 04/17/2017 Overview: Admit date: 04/03/2017 Reason for Admission/Observation: Unable to function Presentation: Patient is a 61-year-old female with PMH of [place], osteoarthritis, MRSA and herniated disc of the [...] of this encounter (statuses as of 03/24/2022) [facility]28[facility]2018 History of Past illness Narrative* Problem Noted [...] Overview: Added automatically from request for surgery [id number] Acute pain of right knee 06/25/2017 018 Overview: Added automatically from request for surgery [id number] Patellar dislocation, right, initial encounter 1 06/20/2016 04/21/2017 Status post total knee replacement using cement, right 04/16/2017 04/21/2017 Overview: Added automatically from request for surgery [id number] Acute pain of right knee 04/16/2017 017 Overview: Added automatically from request for surgery [id number] SUMMARY 04/03/2017 04/17/2017 Overview: Admit date: 04/03/2017 Reason for Admission/Observation: Unable to function Presentation: Patient is a 61-year-old female with PMH of [place], osteoarthritis, MRSA and herniated disc of the [...] of this encounter (statuses as of 05/13/2022) [facility]2018 History of Past illness Narrative* Problem Noted [...] Overview: Added automatically from request for surgery [id number] Acute pain of right knee 06/25/2017 018 Overview: Added automatically from request for surgery [id number] Patellar dislocation, right, initial encounter 1 06/20/2016 04/21/2017 Status post total knee replacement using cement, right 04/16/2017 04/21/2017 Overview: Added automatically from request for surgery [id number] Acute pain of right knee 04/16/2017 017 Overview: Added automatically from request for surgery [id number] SUMMARY 04/03/2017 04/17/2017 Overview: Admit date: 04/03/2017 Reason for Admission/Observation: Unable to function Presentation: Patient is a 61-year-old female with PMH of [place], osteoarthritis, MRSA and herniated disc of the [...] of this encounter (statuses as of 05/21/2022) [facility]2018 History of Past illness Narrative* Problem Noted [...] Overview: Added automatically from request for surgery [id number] Acute pain of right knee 06/25/2017 018 Overview: Added automatically from request for surgery [id number] Patellar dislocation, right, initial encounter 1 06/20/2016 04/21/2017 Status post total knee replacement using cement, right 04/16/2017 04/21/2017 Overview: Added automatically from request for surgery [id number] Acute pain of right knee 04/16/2017 017 Overview: Added automatically from request for surgery [id number] SUMMARY 04/03/2017 04/17/2017 Overview: Admit date: 04/03/2017 Reason for Admission/Observation: Unable to function Presentation: Patient is a 61-year-old female with PMH of [place], osteoarthritis, MRSA and herniated disc of the [...] of this encounter (statuses as of 05/23/2022) [facility] History of Past illness Narrative* Problem Noted [...] Overview: Added automatically from request for surgery [id number] Acute pain of right knee 06/25/2017 018 Overview: Added automatically from request for surgery [id number] Patellar dislocation, right, initial encounter 1 06/20/2016 04/21/2017 Status post total knee replacement using cement, right 04/16/2017 04/21/2017 Overview: Added automatically from request for surgery [id number] Acute pain of right knee 04/16/2017 017 Overview: Added automatically from request for surgery [id number] SUMMARY 04/03/2017 04/17/2017 Overview: Admit date: 04/03/2017 Reason for Admission/Observation: Unable to function Presentation: Patient is a 61-year-old female with PMH of [place], osteoarthritis, MRSA and herniated disc of the [...] of this encounter (statuses as of 06/13/2022) [facility] History of Past illness Narrative* Problem Noted [...] Overview: Added automatically from request for surgery [id number] Acute pain of right knee 06/25/2017 018 Overview: Added automatically from request for surgery [id number] Patellar dislocation, right, initial encounter 1 06/20/2016 04/21/2017 Status post total knee replacement using cement, right 04/16/2017 04/21/2017 Overview: Added automatically from request for surgery [id number] Acute pain of right knee 04/16/2017 017 Overview: Added automatically from request for surgery [id number] SUMMARY 04/03/2017 04/17/2017 Overview: Admit date: 04/03/2017 Reason for Admission/Observation: Unable to function Presentation: Patient is a 61-year-old female with PMH of [place], osteoarthritis, MRSA and herniated disc of the [...] of this encounter (statuses as of 06/18/2022) [facility] History of Past illness Narrative* Problem Noted [...] Overview: Added automatically from request for surgery [id number] Acute pain of right knee 06/25/2017 018 Overview: Added automatically from request for surgery [id number] Patellar dislocation, right, initial encounter 1 06/20/2016 04/21/2017 Status post total knee replacement using cement, right 04/16/2017 04/21/2017 Overview: Added automatically from request for surgery [id number] Acute pain of right knee 04/16/2017 017 Overview: Added automatically from request for surgery [id number] SUMMARY 04/03/2017 04/17/2017 Overview: Admit date: 04/03/2017 Reason for Admission/Observation: Unable to function Presentation: Patient is a 61-year-old female with PMH of [place], osteoarthritis, MRSA and herniated disc of the [...] of this encounter (statuses as of 06/25/2022) [facility] History of Past illness Narrative* Problem Noted [...] Overview: Added automatically from request for surgery [id number] Acute pain of right knee 06/25/2017 018 Overview: Added automatically from request for surgery [id number] Patellar dislocation, right, initial encounter 1 06/20/2016 04/21/2017 Status post total knee replacement using cement, right 04/16/2017 04/21/2017 Overview: Added automatically from request for surgery [id number] Acute pain of right knee 04/16/2017 017 Overview: Added automatically from request for surgery [id number] SUMMARY 04/03/2017 04/17/2017 Overview: Admit date: 04/03/2017 Reason for Admission/Observation: Unable to function Presentation: Patient is a 61-year-old female with PMH of [place], osteoarthritis, MRSA and herniated disc of the [...] of this encounter (statuses as of 07/05/2022) [facility] History of Past illness Narrative* Problem Noted [...] Overview: Added automatically from request for surgery [id number] Acute pain of right knee 06/25/2017 018 Overview: Added automatically from request for surgery [id number] Patellar dislocation, right, initial encounter 1 06/20/2016 04/21/2017 Status post total knee replacement using cement, right 04/16/2017 04/21/2017 Overview: Added automatically from request for surgery [id number] Acute pain of right knee 04/16/2017 017 Overview: Added automatically from request for surgery [id number] SUMMARY 04/03/2017 04/17/2017 Overview: Admit date: 04/03/2017 Reason for Admission/Observation: Unable to function Presentation: Patient is a 61-year-old female with PMH of [place], osteoarthritis, MRSA and herniated disc of the [...] of this encounter (statuses as of 07/09/2022) [facility] History of Past illness Narrative* Problem Noted [...] Overview: Added automatically from request for surgery [id number] Acute pain of right knee 06/25/2017 018 Overview: Added automatically from request for surgery [id number] Patellar dislocation, right, initial encounter 1 06/20/2016 04/21/2017 Status post total knee replacement using cement, right 04/16/2017 04/21/2017 Overview: Added automatically from request for surgery [id number] Acute pain of right knee 04/16/2017 017 Overview: Added automatically from request for surgery [id number] SUMMARY 04/03/2017 04/17/2017 Overview: Admit date: 04/03/2017 Reason for Admission/Observation: Unable to function Presentation: Patient is a 61-year-old female with PMH of [place], osteoarthritis, MRSA and herniated disc of the [...] of this encounter (statuses as of 07/16/2022) [facility]2018 History of Past illness Narrative* Problem Noted [...] Overview: Added automatically from request for surgery [id number] Acute pain of right knee 06/25/2017 018 Overview: Added automatically from request for surgery [id number] Patellar dislocation, right, initial encounter 1 06/20/2016 04/21/2017 Status post total knee replacement using cement, right 04/16/2017 04/21/2017 Overview: Added automatically from request for surgery [id number] Acute pain of right knee 04/16/2017 017 Overview: Added automatically from request for surgery [id number] SUMMARY 04/03/2017 04/17/2017 Overview: Admit date: 04/03/2017 Reason for Admission/Observation: Unable to function Presentation: Patient is a 61-year-old female with PMH of [place], osteoarthritis, MRSA and herniated disc of the [...] of this encounter (statuses as of 07/22/2022) [facility] History of Past illness Narrative* Problem Noted [...] Overview: Added automatically from request for surgery [id number] Acute pain of right knee 06/25/2017 018 Overview: Added automatically from request for surgery [id number] Patellar dislocation, right, initial encounter 1 06/20/2016 04/21/2017 Status post total knee replacement using cement, right 04/16/2017 04/21/2017 Overview: Added automatically from request for surgery [id number] Acute pain of right knee 04/16/2017 017 Overview: Added automatically from request for surgery [id number] SUMMARY 04/03/2017 04/17/2017 Overview: Admit date: 04/03/2017 Reason for Admission/Observation: Unable to function Presentation: Patient is a 61-year-old female with PMH of [place], osteoarthritis, MRSA and herniated disc of the [...] of this encounter (statuses as of 07/28/2022) [facility] History of Past illness Narrative* Problem Noted [...] Overview: Added automatically from request for surgery [id number] Acute pain of right knee 06/25/2017 018 Overview: Added automatically from request for surgery [id number] Patellar dislocation, right, initial encounter 1 06/20/2016 04/21/2017 Status post total knee replacement using cement, right 04/16/2017 04/21/2017 Overview: Added automatically from request for surgery [id number] Acute pain of right knee 04/16/2017 017 Overview: Added automatically from request for surgery [id number] SUMMARY 04/03/2017 04/17/2017 Overview: Admit date: 04/03/2017 Reason for Admission/Observation: Unable to function Presentation: Patient is a 61-year-old female with PMH of [place], osteoarthritis, MRSA and herniated disc of the [...] of this encounter (statuses as of 07/29/2022) [facility]2018 History of Past illness Narrative* Problem Noted [...] Overview: Added automatically from request for surgery [id number] Acute pain of right knee 06/25/2017 018 Overview: Added automatically from request for surgery [id number] Patellar dislocation, right, initial encounter 1 06/20/2016 04/21/2017 Status post total knee replacement using cement, right 04/16/2017 04/21/2017 Overview: Added automatically from request for surgery [id number] Acute pain of right knee 04/16/2017 017 Overview: Added automatically from request for surgery [id number] SUMMARY 04/03/2017 04/17/2017 Overview: Admit date: 04/03/2017 Reason for Admission/Observation: Unable to function Presentation: Patient is a 61-year-old female with PMH of [place], osteoarthritis, MRSA and herniated disc of the [...] of this encounter (statuses as of 07/30/2022) [facility]2018 History of Past illness Narrative* Problem Noted [...] Overview: Added automatically from request for surgery [id number] Acute pain of right knee 06/25/2017 018 Overview: Added automatically from request for surgery [id number] Patellar dislocation, right, initial encounter 1 06/20/2016 04/21/2017 Status post total knee replacement using cement, right 04/16/2017 04/21/2017 Overview: Added automatically from request for surgery [id number] Acute pain of right knee 04/16/2017 017 Overview: Added automatically from request for surgery [id number] SUMMARY 04/03/2017 04/17/2017 Overview: Admit date: 04/03/2017 Reason for Admission/Observation: Unable to function Presentation: Patient is a 61-year-old female with PMH of [place], osteoarthritis, MRSA and herniated disc of the [...] of this encounter (statuses as of 08/12/2022) [facility]2018 History of Past illness Narrative* Problem Noted [...] Overview: Added automatically from request for surgery [id number] Acute pain of right knee 06/25/2017 018 Overview: Added automatically from request for surgery [id number] Patellar dislocation, right, initial encounter 1 06/20/2016 04/21/2017 Status post total knee replacement using cement, right 04/16/2017 04/21/2017 Overview: Added automatically from request for surgery [id number] Acute pain of right knee 04/16/2017 017 Overview: Added automatically from request for surgery [id number] SUMMARY 04/03/2017 04/17/2017 Overview: Admit date: 04/03/2017 Reason for Admission/Observation: Unable to function Presentation: Patient is a 61-year-old female with PMH of [place], osteoarthritis, MRSA and herniated disc of the [...] of this encounter (statuses as of 08/28/2022) [facility]2018 History of Past illness Narrative* Problem Noted [...] Overview: Added automatically from request for surgery [id number] Acute pain of right knee 06/25/2017 018 Overview: Added automatically from request for surgery [id number] Patellar dislocation, right, initial encounter 1 06/20/2016 04/21/2017 Status post total knee replacement using cement, right 04/16/2017 04/21/2017 Overview: Added automatically from request for surgery [id number] Acute pain of right knee 04/16/2017 017 Overview: Added automatically from request for surgery [id number] SUMMARY 04/03/2017 04/17/2017 Overview: Admit date: 04/03/2017 Reason for Admission/Observation: Unable to function Presentation: Patient is a 61-year-old female with PMH of [place], osteoarthritis, MRSA and herniated disc of the [...] of this encounter (statuses as of 08/30/2022) [facility]2018 History of Past illness Narrative* Problem Noted [...] Overview: Added automatically from request for surgery [id number] Acute pain of right knee 06/25/2017 018 Overview: Added automatically from request for surgery [id number] Patellar dislocation, right, initial encounter 1 06/20/2016 04/21/2017 Status post total knee replacement using cement, right 04/16/2017 04/21/2017 Overview: Added automatically from request for surgery [id number] Acute pain of right knee 04/16/2017 017 Overview: Added automatically from request for surgery [id number] SUMMARY 04/03/2017 04/17/2017 Overview: Admit date: 04/03/2017 Reason for Admission/Observation: Unable to function Presentation: Patient is a 61-year-old female with PMH of [place], osteoarthritis, MRSA and herniated disc of the [...] of this encounter (statuses as of 09/08/2022) [facility] History of Past illness Narrative* Problem Noted [...] Overview: Added automatically from request for surgery [id number] Acute pain of right knee 06/25/2017 018 Overview: Added automatically from request for surgery [id number] Patellar dislocation, right, initial encounter 1 06/20/2016 04/21/2017 Status post total knee replacement using cement, right 04/16/2017 04/21/2017 Overview: Added automatically from request for surgery [id number] Acute pain of right knee 04/16/2017 017 Overview: Added automatically from request for surgery [id number] SUMMARY 04/03/2017 04/17/2017 Overview: Admit date: 04/03/2017 Reason for Admission/Observation: Unable to function Presentation: Patient is a 61-year-old female with PMH of [place], osteoarthritis, MRSA and herniated disc of the [...] of this encounter (statuses as of 09/20/2022) [facility] History of Past illness Narrative* Problem Noted [...] Overview: Added automatically from request for surgery [id number] Acute pain of right knee 06/25/2017 018 Overview: Added automatically from request for surgery [id number] Patellar dislocation, right, initial encounter 1 06/20/2016 04/21/2017 Status post total knee replacement using cement, right 04/16/2017 04/21/2017 Overview: Added automatically from request for surgery [id number] Acute pain of right knee 04/16/2017 017 Overview: Added automatically from request for surgery [id number] SUMMARY 04/03/2017 04/17/2017 Overview: Admit date: 04/03/2017 Reason for Admission/Observation: Unable to function Presentation: Patient is a 61-year-old female with PMH of [place], osteoarthritis, MRSA and herniated disc of the [...] been of minimal help. Hospital course: Consultants: Eliseer Valle Needed for Discharge: Disposition: documented as of this encounter (statuses as of 09/24/2022) [place] [address]-28-2018 History of Past illness Narrative* Problem Noted [...] Overview: Added automatically from request for surgery [id number] Acute pain of right knee 06/25/2017 018 Overview: Added automatically from request for surgery [id number] Patellar dislocation, right, initial encounter 1 06/20/2016 04/21/2017 Status post total knee replacement using cement, right 04/16/2017 04/21/2017 Overview: Added automatically from request for surgery [id number] Acute pain of right knee 04/16/2017 017 Overview: Added automatically from request for surgery [id number] SUMMARY 04/03/2017 04/17/2017 Overview: Admit date: 04/03/2017 Reason for Admission/Observation: Unable to function Presentation: Patient is a 61-year-old female with PMH of [place], osteoarthritis, MRSA and herniated disc of the [...] of this encounter (statuses as of 10/01/2022) [facility] History of Past illness Narrative* Problem Noted [...] Overview: Added automatically from request for surgery [id number] Acute pain of right knee 06/25/2017 018 Overview: Added automatically from request for surgery [id number] Patellar dislocation, right, initial encounter 1 06/20/2016 04/21/2017 Status post total knee replacement using cement, right 04/16/2017 04/21/2017 Overview: Added automatically from request for surgery [id number] Acute pain of right knee 04/16/2017 017 Overview: Added automatically from request for surgery [id number] SUMMARY 04/03/2017 04/17/2017 Overview: Admit date: 04/03/2017 Reason for Admission/Observation: Unable to function Presentation: Patient is a 61-year-old female with PMH of [place], osteoarthritis, MRSA and herniated disc of the [...] of this encounter (statuses as of 10/07/2022) [facility] History of Past illness Narrative* Problem Noted [...] Overview: Added automatically from request for surgery [id number] Acute pain of right knee 06/25/2017 018 Overview: Added automatically from request for surgery [id number] Patellar dislocation, right, initial encounter 1 06/20/2016 04/21/2017 Status post total knee replacement using cement, right 04/16/2017 04/21/2017 Overview: Added automatically from request for surgery [id number] Acute pain of right knee 04/16/2017 017 Overview: Added automatically from request for surgery [id number] SUMMARY 04/03/2017 04/17/2017 Overview: Admit date: 04/03/2017 Reason for Admission/Observation: Unable to function Presentation: Patient is a 61-year-old female with PMH of [place], osteoarthritis, MRSA and herniated disc of the [...] of this encounter (statuses as of 10/16/2022) [facility] History of Past illness Narrative* Problem Noted [...] Overview: Added automatically from request for surgery [id number] Acute pain of right knee 06/25/2017 018 Overview: Added automatically from request for surgery [id number] Patellar dislocation, right, initial encounter 1 06/20/2016 04/21/2017 Status post total knee replacement using cement, right 04/16/2017 04/21/2017 Overview: Added automatically from request for surgery [id number] Acute pain of right knee 04/16/2017 017 Overview: Added automatically from request for surgery [id number] SUMMARY 04/03/2017 04/17/2017 Overview: Admit date: 04/03/2017 Reason for Admission/Observation: Unable to function Presentation: Patient is a 61-year-old female with PMH of [place], osteoarthritis, MRSA and herniated disc of the [...] of this encounter (statuses as of 11/06/2022) [facility] History of Past illness Narrative* Problem Noted [...] Overview: Added automatically from request for surgery [id number] Acute pain of right knee 06/25/2017 018 Overview: Added automatically from request for surgery [id number] Patellar dislocation, right, initial encounter 1 06/20/2016 04/21/2017 Status post total knee replacement using cement, right 04/16/2017 04/21/2017 Overview: Added automatically from request for surgery [id number] Acute pain of right knee 04/16/2017 017 Overview: Added automatically from request for surgery [id number] SUMMARY 04/03/2017 04/17/2017 Overview: Admit date: 04/03/2017 Reason for Admission/Observation: Unable to function Presentation: Patient is a 61-year-old female with PMH of [place], osteoarthritis, MRSA and herniated disc of the [...] of this encounter (statuses as of 11/17/2022) [facility] History of Past illness Narrative* Problem Noted [...] Overview: Added automatically from request for surgery [id number] Acute pain of right knee 06/25/2017 018 Overview: Added automatically from request for surgery [id number] Patellar dislocation, right, initial encounter 1 06/20/2016 04/21/2017 Status post total knee replacement using cement, right 04/16/2017 04/21/2017 Overview: Added automatically from request for surgery [id number] Acute pain of right knee 04/16/2017 017 Overview: Added automatically from request for surgery [id number] SUMMARY 04/03/2017 04/17/2017 Overview: Admit date: 04/03/2017 Reason for Admission/Observation: Unable to function Presentation: Patient is a 61-year-old female with PMH of [place], osteoarthritis, MRSA and herniated disc of the [...] of this encounter (statuses as of 11/21/2022) [facility] History of Past illness Narrative* Problem Noted [...] Overview: Added automatically from request for surgery [id number] Acute pain of right knee 06/25/2017 018 Overview: Added automatically from request for surgery [id number] Patellar dislocation, right, initial encounter 1 06/20/2016 04/21/2017 Status post total knee replacement using cement, right 04/16/2017 04/21/2017 Overview: Added automatically from request for surgery [id number] Acute pain of right knee 04/16/2017 017 Overview: Added automatically from request for surgery [id number] SUMMARY 04/03/2017 04/17/2017 Overview: Admit date: 04/03/2017 Reason for Admission/Observation: Unable to function Presentation: Patient is a 61-year-old female with PMH of [place], osteoarthritis, MRSA and herniated disc of the [...] of this encounter (statuses as of 12/04/2022) [facility] History of Past illness Narrative* Problem Noted [...] Overview: Added automatically from request for surgery [id number] Acute pain of right knee 06/25/201711/2017 Overview: Added automatically from request for surgery [id number] Patellar dislocation, right, initial encounter 04/20/2017 04/21/2017 Status post total knee repla cement using cement, right 04/16/2017 04/21/2017 Overview: Added automatically from request for surgery [id number] Acute pain of right knee 04/16/2017 Overview: Added automatically from request for surgery [id number] SUMMARY 04/03/2017 04/17/2017 Overview: Admit date: 04/03/2017 Reason for Admission/Observation: Unable to function Presentation: Patient is a 61-year-old female with PMH of [place], osteoarthritis, MRSA and herniated disc of the [...] of this encounter (statuses as of 12/16/2022) [facility]2018 History of Past illness Narrative* Problem Noted [...] Overview: Added automatically from request for surgery [id number] Acute pain of right knee 06/25/201711/2017 Overview: Added automatically from request for surgery [id number] Patellar dislocation, right, initial encounter 04/20/2017 04/21/2017 Status post total knee repla cement using cement, right 04/16/2017 04/21/2017 Overview: Added automatically from request for surgery [id number] Acute pain of right knee 04/16/2017 Overview: Added automatically from request for surgery [id number] SUMMARY 04/03/2017 04/17/2017 Overview: Admit date: 04/03/2017 Reason for Admission/Observation: Unable to function Presentation: Patient is a 61-year-old female with PMH of [place], osteoarthritis, MRSA and herniated disc of the [...] of this encounter (statuses as of 12/30/2022) [facility]2018 History of Past illness Narrative* Problem Noted [...] Overview: Added automatically from request for surgery [id number] Acute pain of right knee 06/25/201711/2017 Overview: Added automatically from request for surgery [id number] Patellar dislocation, right, initial encounter 04/20/2017 04/21/2017 Status post total knee repla cement using cement, right 04/16/2017 04/21/2017 Overview: Added automatically from request for surgery [id number] Acute pain of right knee 04/16/2017 Overview: Added automatically from request for surgery [id number] SUMMARY 04/03/2017 04/17/2017 Overview: Admit date: 04/03/2017 Reason for Admission/Observation: Unable to function Presentation: Patient is a 61-year-old female with PMH of [place], osteoarthritis, MRSA and herniated disc of the [...] of this encounter (statuses as of 01/01/2023) [facility] History of Past illness Narrative* Problem Noted [...] Overview: Added automatically from request for surgery [id number] Acute pain of right knee 06/25/201711/2017 Overview: Added automatically from request for surgery [id number] Patellar dislocation, right, initial encounter 04/20/2017 04/21/2017 Status post total knee repla cement using cement, right 04/16/2017 04/21/2017 Overview: Added automatically from request for surgery [id number] Acute pain of right knee 04/16/2017 Overview: Added automatically from request for surgery [id number] SUMMARY 04/03/2017 04/17/2017 Overview: Admit date: 04/03/2017 Reason for Admission/Observation: Unable to function Presentation: Patient is a 61-year-old female with PMH of [place], osteoarthritis, MRSA and herniated disc of the [...] of this encounter (statuses as of 01/01/2023) [facility] History of Past illness Narrative* Problem Noted [...] Overview: Added automatically from request for surgery [id number] Acute pain of right knee 06/25/201711/2017 Overview: Added automatically from request for surgery [id number] Patellar dislocation, right, initial encounter 04/20/2017 04/21/2017 Status post total knee repla cement using cement, right 04/16/2017 04/21/2017 Overview: Added automatically from request for surgery [id number] Acute pain of right knee 04/16/2017 Overview: Added automatically from request for surgery [id number] SUMMARY 04/03/2017 04/17/2017 Overview: Admit date: 04/03/2017 Reason for Admission/Observation: Unable to function Presentation: Patient is a 61-year-old female with PMH of [place], osteoarthritis, MRSA and herniated disc of the [...] of this encounter (statuses as of 01/13/2023) [facility] History of Past illness Narrative* Problem Noted [...] Overview: Added automatically from request for surgery [id number] Acute pain of right knee 06/25/201711/2017 Overview: Added automatically from request for surgery [id number] Patellar dislocation, right, initial encounter 04/20/2017 04/21/2017 Status post total knee repla cement using cement, right 04/16/2017 04/21/2017 Overview: Added automatically from request for surgery [id number] Acute pain of right knee 04/16/2017 Overview: Added automatically from request for surgery [id number] SUMMARY 04/03/2017 04/17/2017 Overview: Admit date: 04/03/2017 Reason for Admission/Observation: Unable to function Presentation: Patient is a 61-year-old female with PMH of [place], osteoarthritis, MRSA and herniated disc of the [...] of this encounter (statuses as of 01/14/2023) [facility] History of Past illness Narrative* Problem Noted [...] Overview: Added automatically from request for surgery [id number] Acute pain of right knee 06/25/201711/2017 Overview: Added automatically from request for surgery [id number] Patellar dislocation, right, initial encounter 04/20/2017 04/21/2017 Status post total knee repla cement using cement, right 04/16/2017 04/21/2017 Overview: Added automatically from request for surgery [id number] Acute pain of right knee 04/16/2017 Overview: Added automatically from request for surgery [id number] SUMMARY 04/03/2017 04/17/2017 Overview: Admit date: 04/03/2017 Reason for Admission/Observation: Unable to function Presentation: Patient is a 61-year-old female with PMH of [place], osteoarthritis, MRSA and herniated disc of the [...] of this encounter (statuses as of 01/27/2023) [facility] History of Past illness Narrative* Problem Noted [...] Overview: Added automatically from request for surgery [id number] Acute pain of right knee 06/25/201711/2017 Overview: Added automatically from request for surgery [id number] Patellar dislocation, right, initial encounter 04/20/2017 04/21/2017 Status post total knee repla cement using cement, right 04/16/2017 04/21/2017 Overview: Added automatically from request for surgery [id number] Acute pain of right knee 04/16/2017 Overview: Added automatically from request for surgery [id number] SUMMARY 04/03/2017 04/17/2017 Overview: Admit date: 04/03/2017 Reason for Admission/Observation: Unable to function Presentation: Patient is a 61-year-old female with PMH of [place], osteoarthritis, MRSA and herniated disc of the [...] of this encounter (statuses as of 01/31/2023) [facility] History of Past illness Narrative* Problem Noted [...] Overview: Added automatically from request for surgery [id number] Acute pain of right knee 06/25/201711/2017 Overview: Added automatically from request for surgery [id number] Patellar dislocation, right, initial encounter 04/20/2017 04/21/2017 Status post total knee repla cement using cement, right 04/16/2017 04/21/2017 Overview: Added automatically from request for surgery [id number] Acute pain of right knee 04/16/2017 Overview: Added automatically from request for surgery [id number] SUMMARY 04/03/2017 04/17/2017 Overview: Admit date: 04/03/2017 Reason for Admission/Observation: Unable to function Presentation: Patient is a 61-year-old female with PMH of [place], osteoarthritis, MRSA and herniated disc of the [...] of this encounter (statuses as of 01/31/2023) [facility] History of Past illness Narrative* Problem Noted [...] Overview: Added automatically from request for surgery [id number] Acute pain of right knee 06/25/201711/2017 Overview: Added automatically from request for surgery [id number] Patellar dislocation, right, initial encounter 04/20/2017 04/21/2017 Status post total knee repla cement using cement, right 04/16/2017 04/21/2017 Overview: Added automatically from request for surgery [id number] Acute pain of right knee 04/16/2017 Overview: Added automatically from request for surgery [id number] SUMMARY 04/03/2017 04/17/2017 Overview: Admit date: 04/03/2017 Reason for Admission/Observation: Unable to function Presentation: Patient is a 61-year-old female with PMH of [place], osteoarthritis, MRSA and herniated disc of the [...] of this encounter (statuses as of 02/13/2023) [facility] History of Past illness Narrative* Problem Noted [...] Overview: Added automatically from request for surgery [id number] Acute pain of right knee 06/25/201711/2017 Overview: Added automatically from request for surgery [id number] Patellar dislocation, right, initial encounter 04/20/2017 04/21/2017 Status post total knee repla cement using cement, right 04/16/2017 04/21/2017 Overview: Added automatically from request for surgery [id number] Acute pain of right knee 04/16/2017 Overview: Added automatically from request for surgery [id number] SUMMARY 04/03/2017 04/17/2017 Overview: Admit date: 04/03/2017 Reason for Admission/Observation: Unable to function Presentation: Patient is a 61-year-old female with PMH of [place], osteoarthritis, MRSA and herniated disc of the [...] of this encounter (statuses as of 02/14/2023) [facility] History of Past illness Narrative* Problem Noted [...] Overview: Added automatically from request for surgery [id number] Acute pain of right knee 06/25/201711/2017 Overview: Added automatically from request for surgery [id number] Patellar dislocation, right, initial encounter 04/20/2017 04/21/2017 Status post total knee repla cement using cement, right 04/16/2017 04/21/2017 Overview: Added automatically from request for surgery [id number] Acute pain of right knee 04/16/2017 Overview: Added automatically from request for surgery [id number] SUMMARY 04/03/2017 04/17/2017 Overview: Admit date: 04/03/2017 Reason for Admission/Observation: Unable to function Presentation: Patient is a 61-year-old female with PMH of [place], osteoarthritis, MRSA and herniated disc of the [...] of this encounter (statuses as of 03/30/2023) [facility] History of Past illness Narrative* Problem Noted [...] Overview: Added automatically from request for surgery [id number] Acute pain of right knee 06/25/201711/2017 Overview: Added automatically from request for surgery [id number] Patellar dislocation, right, initial encounter 04/20/2017 04/21/2017 Status post total knee repla cement using cement, right 04/16/2017 04/21/2017 Overview: Added automatically from request for surgery [id number] Acute pain of right knee 04/16/2017 Overview: Added automatically from request for surgery [id number] SUMMARY 04/03/2017 04/17/2017 Overview: Admit date: 04/03/2017 Reason for Admission/Observation: Unable to function Presentation: Patient is a 61-year-old female with PMH of [place], osteoarthritis, MRSA and herniated disc of the [...] of this encounter (statuses as of 04/08/2023) [place] [facility]-28-2018 History of Past illness Narrative* Problem Noted [...] Overview: Added automatically from request for surgery [id number] Acute pain of right knee 06/25/201711/2017 Overview: Added automatically from request for surgery [id number] Patellar dislocation, right, initial encounter 04/20/2017 04/21/2017 Status post total knee repla cement using cement, right 04/16/2017 04/21/2017 Overview: Added automatically from request for surgery [id number] Acute pain of right knee 04/16/2017 Overview: Added automatically from request for surgery [id number] SUMMARY 04/03/2017 04/17/2017 Overview: Admit date: 04/03/2017 Reason for Admission/Observation: Unable to function Presentation: Patient is a 61-year-old female with PMH of [place], osteoarthritis, MRSA and herniated disc of the [...] of this encounter (statuses as of 04/14/2023) [facility] History of Past illness Narrative* Problem Noted [...] Overview: Added automatically from request for surgery [id number] Acute pain of right knee 06/25/201711/2017 Overview: Added automatically from request for surgery [id number] Patellar dislocation, right, initial encounter 04/20/2017 04/21/2017 Status post total knee repla cement using cement, right 04/16/2017 04/21/2017 Overview: Added automatically from request for surgery [id number] Acute pain of right knee 04/16/2017 Overview: Added automatically from request for surgery [id number] SUMMARY 04/03/2017 04/17/2017 Overview: Admit date: 04/03/2017 Reason for Admission/Observation: Unable to function Presentation: Patient is a 61-year-old female with PMH of [place], osteoarthritis, MRSA and herniated disc of the [...] of this encounter (statuses as of 05/04/2023) [facility] History of Past illness Narrative* Problem Noted [...] Overview: Added automatically from request for surgery [id number] Acute pain of right knee 06/25/201711/2017 Overview: Added automatically from request for surgery [id number] Patellar dislocation, right, initial encounter 04/20/2017 04/21/2017 Status post total knee repla cement using cement, right 04/16/2017 04/21/2017 Overview: Added automatically from request for surgery [id number] Acute pain of right knee 04/16/2017 Overview: Added automatically from request for surgery [id number] SUMMARY 04/03/2017 04/17/2017 Overview: Admit date: 04/03/2017 Reason for Admission/Observation: Unable to function Presentation: Patient is a 61-year-old female with PMH of [place], osteoarthritis, MRSA and herniated disc of the [...] of this encounter (statuses as of 05/11/2023) [facility] History of Past illness Narrative* Problem Noted [...] Overview: Added automatically from request for surgery [id number] Acute pain of right knee 06/25/201711/2017 Overview: Added automatically from request for surgery [id number] Patellar dislocation, right, initial encounter 04/20/2017 04/21/2017 Status post total knee repla cement using cement, right 04/16/2017 04/21/2017 Overview: Added automatically from request for surgery [id number] Acute pain of right knee 04/16/2017 Overview: Added automatically from request for surgery [id number] SUMMARY 04/03/2017 04/17/2017 Overview: Admit date: 04/03/2017 Reason for Admission/Observation: Unable to function Presentation: Patient is a 61-year-old female with PMH of [place], osteoarthritis, MRSA and herniated disc of the [...] of this encounter (statuses as of 07/30/2023) [facility] History of Past illness Narrative* Problem Noted [...] Overview: Added automatically from request for surgery [id number] Acute pain of right knee 06/25/201711/2017 Overview: Added automatically from request for surgery [id number] Patellar dislocation, right, initial encounter 04/20/2017 04/21/2017 Status post total knee repla cement using cement, right 04/16/2017 04/21/2017 Overview: Added automatically from request for surgery [id number] Acute pain of right knee 04/16/2017 Overview: Added automatically from request for surgery [id number] SUMMARY 04/03/2017 04/17/2017 Overview: Admit date: 04/03/2017 Reason for Admission/Observation: Unable to function Presentation: Patient is a 61-year-old female with PMH of [place], osteoarthritis, MRSA and herniated disc of the [...] of this encounter (statuses as of 07/31/2023) [facility] History of Past illness Narrative* Problem Noted [...] Overview: Added automatically from request for surgery [id number] Acute pain of right knee 06/25/201711/2017 Overview: Added automatically from request for surgery [id number] Patellar dislocation, right, initial encounter 04/20/2017 04/21/2017 Status post total knee repla cement using cement, right 04/16/2017 04/21/2017 Overview: Added automatically from request for surgery [id number] Acute pain of right knee 04/16/2017 Overview: Added automatically from request for surgery [id number] SUMMARY 04/03/2017 04/17/2017 Overview: Admit date: 04/03/2017 Reason for Admission/Observation: Unable to function Presentation: Patient is a 61-year-old female with PMH of [place], osteoarthritis, MRSA and herniated disc of the [...] of this encounter (statuses as of 08/11/2023) [facility] Cellulitis of right lower extremity- Primary Cellulitis and abscess of leg, except foot documented in this encounter [facility] Work Phone: Evaluation note* Diagnosis Chronic pain of right knee- Primary documented in this encounter [facility] Work Phone: Evaluation note* Diagnosis Chronic anxiety Anxiety state, unspecified [facility] Diagnosis Chronic pain of right knee [facility] noteNo assessment information availableW[facility] Work Phone: Evaluation [facility]* Diagnosis Chronic anxiety Anxiety state, unspecified [facility] Diagnosis Chronic pain of right knee [facility] Diagnosis Chronic anxiety Anxiety state, unspecified [facility] Diagnosis Infection associated with internal right knee prosthesis, subsequent encounter Chronic anxiety Anxiety state, unspecified [facility] Diagnosis Chronic anxiety- Primary Anxiety state, unspecified [facility] Diagnosis Infection associated with internal right knee prosthesis, subsequent encounter [facility] Diagnosis Infection associated with internal right knee prosthesis, subsequent encounter [facility] Chronic anxiety Anxiety state, unspecified Chronic pain of right knee Infection associated with internal right knee prosthesis, subsequent encounter [facility] Diagnosis Infection associated with internal right knee prosthesis, subsequent encounter Chronic pain of right knee [facility] Diagnosis Breast pain, left- Primary Mastodynia [facility]* Diagnosis Infection associated with internal right knee prosthesis, subsequent encounter [facility]* Diagnosis Status post total left knee replacement- Primary [facility]* Diagnosis Pain due to internal orthopedic prosthetic devices, implants and grafts, initial encounter ([facility] Diagnosis Chronic pain of right knee Chronic anxiety Anxiety state, unspecified [facility] Chronic anxiety Anxiety state, unspecified Chronic pain of right knee [facility] Chronic pain of right knee Infection associated with internal right knee prosthesis, subsequent encounter Chronic anxiety Anxiety state, unspecified [facility]* Diagnosis Status post total left knee replacement- Primary S/P revision of total knee, right documented in this encounter [facility] note* Diagnosis Infection associated with internal right knee prosthesis, subsequent encounter documented in this encounter [facility] note* Diagnosis Infection associated with internal right knee prosthesis, subsequent encounter Chronic pain of right knee Chronic anxiety Anxiety state, unspecified documented in this encounter [facility] note* Diagnosis Chronic pain of right knee Chronic anxiety Anxiety state, unspecified Infection associated with internal right knee prosthesis, subsequent encounter documented in this encounter [facility] note* Diagnosis MS (multiple sclerosis) (HCC)- Primary Multiple sclerosis Daily headache Headache documented in this encounter [facility] note* Diagnosis Chronic anxiety Anxiety state, unspecified documented in this encounter [facility] note* Diagnosis Infection associated with internal right knee prosthesis, subsequent encounter documented in this encounter [facility] note* Diagnosis Encounter for screening mammogram for breast cancer documented in this encounter [facility] note* Diagnosis Left leg swelling- Primary documented in this encounter [facility] note* Diagnosis MS (multiple sclerosis) (HCC) Multiple sclerosis Daily headache Headache Infection associated with internal right knee prosthesis, subsequent encounter Chronic anxiety Anxiety state, unspecified documented in this encounter [facility] note* Diagnosis Infection associated with internal right knee prosthesis, subsequent encounter documented in this encounter [facility] note* Diagnosis MS (multiple sclerosis) (HCC) Multiple sclerosis Daily headache Headache Chronic anxiety Anxiety state, unspecified documented in this encounter [facility] note* Diagnosis Pyogenic arthritis of right knee joint, due to unspecified organism (HCC) documented in this encounter [facility] note* Diagnosis MS (multiple sclerosis) (HCC) Multiple sclerosis Daily headache Headache Infection associated with internal right knee prosthesis, subsequent encounter Chronic anxiety Anxiety state, unspecified documented in this encounter [facility] note* Diagnosis MS (multiple sclerosis) (HCC) Multiple sclerosis Daily headache Headache Infection associated with internal right knee prosthesis, subsequent encounter Chronic anxiety Anxiety state, unspecified documented in this encounter [facility] note* Diagnosis Chronic anxiety Anxiety state, unspecified MS (multiple sclerosis) (HCC) Multiple sclerosis Daily headache Headache [facility]* Diagnosis Infection associated with internal right knee prosthesis, subsequent encounter [facility]* Diagnosis Chronic anxiety Anxiety state, unspecified Infection associated with internal right knee prosthesis, subsequent encounter MS (multiple sclerosis) (HCC) Multiple sclerosis Daily headache Headache [facility] MS (multiple sclerosis) (HCC) Multiple sclerosis Daily headache Headache Chronic anxiety Anxiety state, unspecified Infection associated with internal right knee prosthesis, subsequent encounter [facility] Diagnosis Infection associated with internal right knee prosthesis, subsequent encounter Chronic anxiety Anxiety state, unspecified MS (multiple sclerosis) (HCC) Multiple sclerosis Daily headache Headache [facility] Diagnosis Chronic anxiety Anxiety state, unspecified Infection associated with internal right knee prosthesis, subsequent encounter MS (multiple sclerosis) (HCC) Multiple sclerosis Daily headache Headache [facility] Diagnosis Chronic anxiety Anxiety state, unspecified [facility]* Diagnosis Acute respiratory failure with [...] prosthesis, subsequent encounter [facility] Acute respiratory failure with [...] Daily headache Headache documented in this encounter [facility] note* Diagnosis Acute respiratory failure with hypoxia [...] left knee replacement documented in this encounter [facility] note* Diagnosis Acute respiratory failure with hypoxia [...] Anxiety state, unspecified documented in this encounter [facility] note* Diagnosis Acute respiratory failure with hypoxia [...] Anxiety state, unspecified documented in this encounter [facility] note* Diagnosis Acute respiratory failure with hypoxia [...] Daily headache Headache documented in this encounter [facility] note* Diagnosis Acute respiratory failure with hypoxia [...] Daily headache Headache documented in this encounter [facility] note* Diagnosis Acute respiratory failure with hypoxia [...] Anxiety state, unspecified [facility] Diagnosis Acute respiratory failure with hypoxia [...] prosthesis, subsequent encounter [facility] Diagnosis Acute respiratory failure with hypoxia [...] Daily headache Headache [facility] Diagnosis Acute respiratory failure with hypoxia [...] Daily headache Headache documented in this encounter [facility] note* Diagnosis Acute respiratory failure with hypoxia [...] prosthesis, subsequent encounter documented in this encounter [facility] note* Diagnosis Acute respiratory failure with hypoxia [...] Anxiety state, unspecified [facility]ructions* Nica Nolasco MD - 01/06/2021 Orthopaedic Surgery Discharge Instructions: You may bear weight as tolerated Apply Ice to affected area. This will help with pain. Elevate your right lower extremity/extremities. This will help with swelling. Take your medications and antibiotics as prescribed. Call Dr. Parrish's office to schedule a follow-up appointment as soon as possible documented in this [facility] Work Phone: Hospital Discharge instructions* Attachments The following attachments cannot be sent through Care Everywhere. * Dependent Edema Discharge Instructions (Angolan) [facility] Diagnostic Procedure Only (Routine) - Pending Review Specialty Diagnoses / Procedures Referred By Andrea t Referred To Contact BR IMAGING Diagnoses Breast pain, left Procedures US BREAST LTD LT US BREAST UNI REAL TIME WITH IMAGE LIMITED Moreno Oates MD [address] [place] [address] [place] [address] Br Imaging [address] [place] [address] Referral ID Status Reason Start Date Expiration Date Visits Requested Visits Authorized [id number] Pending Review Auto-Generat ed Referral 2 04/16/2023 1 1 * Diagnostic Procedure Only (Routine) - Pending Review Specialty Diagnoses / Procedures Referred By Contac t Referred To Contact BR IMAGING Diagnoses Breast pain, left Procedures AMANDA DIAGNOSTIC BILAT DIAGNOSTIC MAMMOGRAPHY COMPUTER-AIDED DETCJ BI Moreno Oates MD [address] [place] [address] Br Imaging [address] [place] [address] Referral ID Status Reason Start Date Expiration Date Visits Requested Visits Authorized [id number] Pending Review Auto-Generat ed Referral 2 04/16/2023 1 1 [facility] for referral (narrative)* Diagnostic Procedure Only (Routine) - Closed Specialty Diagnoses / Procedures Referred By Contac t Referred To Contact XR IMAGING Diagnoses Status post total left knee replacement Procedures XR KNEE POST OP 3V AP/LAT/MERCHANT LEFT RADIOLOGIC EXAMINATION KNEE 3 VIEWS Debbie Batista PA-C [address] [place] [address] Xr Imaging Referral ID Status Reason Start Date Expiration Date V isits Requested Visits Authorized [id number] Closed Auto-Generated Referral Financial Clearance Not Required 05/21/2022 06/20/2023 1 1 [facility] for referral (narrative)* Diagnostic Procedure Only (Routine) - Pending Review Specialty Diagnoses / Procedures Referred By Andrea t Referred To Contact BR IMAGING Diagnoses Encounter for screening mammogram for breast cancer Procedures AMANDA SCREENING SCREENING MAMMOGRAPHY BI 2-VIEW BREAST INC CAD Moreno Oates MD [address] [place] [address] Br Imaging [address] [place] [address] Referral ID Status Reason Start Date Expiration Date Visits Requested Visits Authorized [id number] Pending Review Auto-Generat ed Referral 11/12/2022 12/12/2023 1 1 [facility] for referral (narrative)* Diagnostic Procedure Only (Routine) - Closed Specialty Diagnoses / Procedures Referred By Andrea flores Referred To Contact XR IMAGING Diagnoses Status post total left knee replacement Procedures XR KNEE POST OP 3V AP/LAT/MERCHANT LEFT RADIOLOGIC EXAMINATION KNEE 3 VIEWS Debbie Batista PA-C [address] [place] [address] [place] [address] Referral ID Status Reason Start Date Expiration Date V isits Requested Visits Authorized [id number] Closed Auto-Generated Referral Financial Clearance Not Required 05/21/2022 06/20/2023 1 1 [facility] for referral (narrative)No reason for referral information [facility] Work Phone: Reason for visit Narrative* Diagnostic Procedure Only (Routine) - Closed Specialty Diagnoses / Procedures Referred By Andrea flores Referred To Contact CT IMAGING Diagnoses Pain due to internal orthopedic prosthetic devices, implants and grafts, initial... Procedures CT KNEE WO IVCON LT Debbie Batista PA-C [address] [place] [address] Ct Imaging Referral ID Status Reason Start Date Expiration Date V isits Requested Visits Authorized [id number] Closed OON/Self Pay Override 05/22/2022 11/18/2022 1 0 [facility] Summary Purpose Family History No Family History Records FoundNo Family History Records FoundNo Family History Records FoundNo Family History Records FoundNo Family History Records FoundNo Family History Records FoundNo Family History Records FoundNo Family History Records FoundNo Family History Records FoundNo Family History Records Found Advance Directives Documents on File Type Date Recorded 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 Advance Directive(s) 03/10/2018 4:43 PM Date Activated Date Inactivated Comments 12/01/2019 2:03 PM 12/19/2020 2:08 AM Latest Code Status on File Code Status Date Activated Date Inactivated Comments Full Code 12/01/2019 2:03 PM 12/19/2020 2:08 AM Documents on File Type Date Recorded 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 Advance Directives and Living Will Power of Community Leader Latest Code Status on File Code Status Date Activated Date Inactivated Comments Full Code 11/04/2019 9:10 PM Limited 10/12/2019 1:14 PM 10/25/2019 6:17 PM Intubation/Re-intubation: No Defibrillation/Cardioversion: No Chest Compressions: No Resuscitative Medications: No Other (Specify in Free Text): OK for NIV Full Code 10/03/2019 11:26 AM 10/12/2019 1:14 PM Documents on File Type Date Recorded 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 ACP-Advance Directive ACP-Power of Community Leader DNR Documentation 10/27/2019 8:41 AM Latest Code Status on File Code Status Date Activated Date Inactivated Comments Full Code 01/27/2020 11:12 PM Full Code 11/04/2019 9:10 PM 11/05/2019 1:25 AM Latest Code Status on File Code Status Date Activated Date Inactivated Comments Limited 10/12/2019 1:14 PM Documents on File Type Date Recorded 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 ACP-Advance Directive ACP-Power of Community Leader ACP-Do Not Resuscitate 10/27/2019 8:41 AM Latest Code Status on File Code Status Date Activated Date Inactivated Comments Full Code 01/27/2020 11:12 PM 02/03/2020 6:47 PM Documents on File Type Date Recorded 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 Advance Directive(s) 01/06/2021 4:29 AM [...] Documents on File Type Date Recorded 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 Advance Directive(s) 03/10/2018 4:43 PM Latest Code Status on File Code Status Date Activated Date Inactivated Comments Full Code 12/01/2019 2:03 PM 12/19/2020 2:08 AM Documents on File Type Date Recorded 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 DNR (Do Not Resuscitate) 10/03/2019 DNR (Do Not Resuscitate) 04/26/2015 Latest Code Status on File Code Status Date Activated Date Inactivated Comments Full Code 12/01/2019 2:03 PM 12/19/2020 2:08 AM Date Activated Date Inactivated Comments 12/01/2019 2:03 PM 12/19/2020 2:08 AM History of Present Illness * Jan Zepeda MD - 11/04/2019 9:29 PM EDT Discussed Mrs. Nguyen's case with Dr. Parrish ([facility] Orthopaedic Surgeon). Patient to be transferred to [facility]. Discussed with [facility] call center and transportation. Discussed with IMS at [facility] - will be accepting transfer. Transfer pending. Please page [phone] or system consultant resident with questions or concerns. Jan Zepeda MD PGY-2, Orthopaedic Surgery [phone] 11/04/2019 .9:46 PM * Jan Zepeda MD - 11/04/2019 8:15 PM EDT documented in this encounter* Delisa Guaman RN - 02/03/2020 3:48 PM EDT Report called to [facility]. Informed them that the patient is scheduled to be picked up at 1600. * Kristen Howard OTA - 02/03/2020 1:37 PM EDT Occupational Therapy Facility/Department: [facility] TELEMETRY Daily Treatment Note NAME: Charlie Nguyen : 1955 Date of Service: 02/03/2020 Assessment REQUIRES OT FOLLOW UP: Yes Subjective General Chart Reviewed: Yes Subjective Subjective: Pt eating and states "I can't do any therapy today, you can't touch my leg. It's severepain" General Comment Comments: Pt declining therapy. Upon chart review, is supposed to d/o to SNF later today. ARTHUR Tierney * Yamilka Yeboah APRN - BENJAMIN - 02/02/2020 12:09 PM EDT Hospitalist Progress Note 02/02/2020 12:09 PM Subjective: Admit Date: 01/27/2020 PCP: Moreno Oates Room#: [id number] Interval History: c/o quite a bit of [...] (36.2 C) (Temporal) Resp 19 Ht 5' 11" (1.803 m) Wt236 lb 6.4 oz (107.2 [...] the expert evaluation and faxed it to [phone] * Deja Koehler MD - 02/02/2020 8:05 AM EDT H: Recent Labs 02/02/20 0340 HGB 11.9 WBC 6.4 VS: Blood pressure 120/72, pulse 57, temperature 97.2 F (36.2 C), temperature source Temporal, resp. rate 20, height 5' 11" (1.803 m), weight 236 lb 6.4 oz [...] -- no effusion, erythema or warmth. ROM "too good" for septic arthritis. ESR and CRP elevated -- however, has UTI. Contusion now present on knee Bone scan can show uptake up to 2 yrs post surgery -- patient doesn't know when her revision was done. Would proceed to mobilize as able, and proceed w/ disposition. Once UTI resolved, as outpatient, ESR and CRP can be repeated. * Abimbola Taylor, LIVING SPECIALIST - 02/01/2020 2:29 PM EDT Physical Therapy Facility/Department: [facility] TE[facility] Daily Treatment Note NAME: Charlie Nguyen : 1955 Date of Service: 02/01/2020 Discharge Recommendations: Subacute/Nursing Home Facility Assessment Assessment: Pt still presents with [...] Minutes: 8 Minutes(1 ther act) Abimbola Taylor LIVING SPECIALIST * Kiley Goff PA-C - 02/01/2020 11:57 [...] (36.6 C) (Temporal) Resp 18 Ht 5' 11" (1.803 m) Wt 238 lb 12.8 oz [...] - 02/01/2020 8:41 AM EDT avaysis discontinued 01-31 at 8:30 am * Deja Koehler MD - 02/01/2020 8:19 AM EDT H: Recent Labs 01/31/20 0549 HGB 11.8 WBC 5.6 VS: Blood pressure (!) 142/86, pulse 63, temperature 97.9 F (36.6 C), temperature source Temporal, resp. rate 18, height 5' 11" (1.803 m), weight 238 lb 12.8 oz [...] xray and exam are normal. Hx of "fall", but her history is not accurate. Will get BS to evaluate for occult injury. * Aziza Cole RN - 02/01/2020 6:17 AM EDT Pt refused morning labs * Abimbola Taylor PTA - 01/31/2020 11:12 AM EDT Physical Therapy Facility/Department: [facility] Daily Treatment Note NAME: [...] 11:11 AM Subjective: Admit Date: 01/27/2020 PCP: Moreno Oates Room#: [id number] Interval History: Overnight the pt became increasingly [...] (37.7 C) (Temporal) Resp 18 Ht 5' 11" (1.803 m) Wt 240 lb 12.8 oz [...] Medical Services 01/31/2020, 11:11 AM * Larissa JohnsonARTHUR - 01/31/2020 11:07 AM EDT Occupational Therapy Facility/Department: [facility] Daily Treatment Note NAME: Charlie Nguyen : 1955 Date of Service: 01/31/2020 Discharge Recommendations: Subacute/Nursing Home Facility Assessment Performance deficits / Impairments: Decreased [...] Timed Code Treatment Minutes: 25 Minutes(2x FA) NAZIA Robles * Kiley Goff PA-C - 01/31/2020 9:57 AM EDT While evaluating the pt, she started telling me about some hallucinations she appeared to have thismorning. She states some "killer white moths" came in and killed all three of her cats. Tried re-orienting the patient, because at this present time she does know she is in [facility], but she is still very much convinced her cats were killed by moths. * Deja Koehler MD - 01/31/2020 8:48 AM EDT H: Recent Labs 01/31/20 0549 HGB 11.8 WBC 5.6 VS: Blood pressure (!) 165/96, pulse 63, temperature 99.8 F (37.7 C), temperature source Temporal, resp. rate 18, height 5' 11" (1.803 m), weight 240 lb 12.8 oz [...] further imaging if clinically warranted. * Lisa Townsend RD, LD - 01/30/2020 2:42 PM EDT Comprehensive [...] loss Fluid Accumulation: 1 - Mild Extremities Jewelry Appraiser Strength: Not Performed Estimated Daily Nutrient Needs: Energy (kcal): 4059-3122 kcals; Weight Used for Energy Requirements: [place] Protein (g): 70-84 g(1-1.2); Weight Used for Protein Requirements: [place] Fluid (ml/day): 5073-3246 ml/day or per MD; Weight Used for Fluid Requirements: [place] Nutrition Related Findings: +1 BLE edema, Cl 108, Cr 0.45, Ammonia <9, K+ 3.7, Lipase 2875, TG 71, albumin 3.0 Wounds: (right hip/buttock abrasions, birgit area redness, stage 1 right proximal buttock) Current Nutrition Therapies: DIET GENERAL; Dietary Nutrition Supplements: Low Calorie High Protein Supplement Anthropometric Measures: Height: 5' 11" (180.3 cm) Current Body Weight: 255 lb (115.7 kg) Admission Body Weight: 244 lb (110.7 kg) Usual Body Weight: 270 lb (122.5 kg)(10/03/19) [place] Body Weight: 155 lbs; % [place] Body Weight 164.5 % BMI: 35.6 Adjusted [...] Admit Date: 01/27/2020 PCP: Moreno Oates Room#: [id number] Interval History: No overnight issues. Upon entering the room the pt is holding one of her IV pumpsin her hand, when asked what happened she stated "I was trying to lift up the phone, I don't know what happened." Hernando RN assisted in placing IV pump back together. She then states "Well I better get something for pain or I'm walking out of here." Asked again about what happened when she [...] KCl 40 mEq 100 mL/hr at 01/29/20 2208 cefTRIAXone (ROCEPHIN) IV 1 g Intravenous Q24H pantoprazole 40 mg Oral Daily apixaban 5 mg Oral BID sodium chloride flush 10 mL Intravenous 2 times per day divalproex 250 mg Oral 3 times per day LABS: CBC: Recent Labs 01/27/20185101/28/2035 01/30/20518 WBC 10.5 9.1 7.5 RBC 4.38 4.20 3.62* HGB 12.2 11.8 10.1* HCT 38.0 37.0 32.0* MCV 86.7 88.1 88.6 RDW 16.2* 16.2* 16.4* PLT 318 280 257 BMP: Recent Labs 01/27/20185101/28/2035 01/30/20518 NA 140 138 140 K 2.6* 3.2* [...] (36.6 C) (Temporal) Resp 18 Ht 5' 11" (1.803 m) Wt 255 lb 8 oz [...] 01/29/2020 11:34 AM EDT Physical Therapy Facility/Department: [facility] Initial Assessment NAME: Charlie Nguyen : 1955 Date of Service: 01/29/2020 Having reviewed the treatment plan and goals for this patient, I certify that the plan of care below is medically necessary and appropriate. Discharge Recommendations: Subacute/Nursing Home Facility PT Equipment Recommendations Equipment Needed: No [...] Strength RLE Comment: 3/5 Strength LLE Comment: 3 Tone RLE RLE Tone: Normotonic Tone LLE [...] 1130) AM-PAC Inpatient T-Scale Score : 39.45 (08/30/20 1130) Mobility Inpatient CMS 0-100% Score: 57.7 (01/29/201129) Mobility Inpatient CMS G-Code Modifier : CK (01/29/201129) Goals Short term goals Time Frame for [...] 0900 Time Out 0920 Minutes 20 Fernandez Bahena, PT * Arlin Baltazar OT - 01/29/2020 11:20 AM EDT Occupational Therapy Occupational Therapy Initial Assessment Date: 01/29/2020 Patient Name: Charlie Nguyen : 1955 Date of Service: 01/29/2020 Discharge Recommendations: Subacute/Nursing Home Facility Assessment Performance deficits / Impairments: Decreased [...] Ischemic colitis (HCC), and MS (multiple sclerosis) ([facility]). has a past surgical history that includes [...] Inpatient Daily Activity Raw Score: 16 (01/29/20 111) AM-PAC Inpatient ADL T-Scale Score : 35.96 (01/29/201109) ADL Inpatient CMS 0-100% Score: 53.32 (01/29/201109) ADL Inpatient CMS G-Code Modifier : CK [...] 01/28/2020 3:10 PM EDT Physical Therapy Facility/Department: [facility] TELEMETRY Daily Treatment Note NAME: Charlie [...] 10:19 AM documented in this encounter* Joselin Diaz RN - 10/25/2019 2:49 PM EDT Called report to Russell [facility]child [facility]. * Carlos Degroot PT - 10/25/2019 1:30 PM EDT Physical [...] if plan changes. Sandie Taylor OT * Kristen Burton, HEARING AID REPAIRER - 10/25/2019 11:45 AM EDT Speech Language Pathology Facility/Department: [facility] TELEMETRY Speech Language/Dysphagia Daily Therapy Note NAME: [...] down. Pt without posture with head turn "hard" to the right. Cognitive Linguistic: Increased attention [...] per plan of care. Kristen Burton M.A., [facility]HEARING AID REPAIRER Speech-Language Pathologist Time in 1135 Time out 1145 * Clinton Deleon MD - 10/25/2019 11:10 AM EDT [facility], Pulmonary Critical Care and Sleep Medicine [address] [place] [address] Patient - Charlie Nguyen, Age - 64 y.o. - 1955 Room Number - [id number] Consulting - Max Bob DO Primary Care Physician - Moreno Oates Date of Admission - 10/03/2019 7:34 AM Hospital Day - I have evaluated the patient and reviewed the case with the RURAL CARRIER ASSOCIATE. I agree with the current plan of [...] systems reviewed Objective Vitals height is 5' 9" (1.753 m) and weight is 270 lb [...] multiple drugs, accidental or unintentional, initial encounter [T50.961A] 10/03/2019 Assessment and Plan Acute hypoxic respiratory [...] N95 MASK, Gown, FACE SHIELD AND GLOVES [id number]: Please page me @ [phone] for patient care issues. [phone]: Please page [facility] night Hospitalist for any issues. Subjective: Admit [...] Subcutaneous Daily LABS: CBC: Recent Labs 10/22/19 0510/23/1934710/24/19 041 WBC 9.2 9.8 8.8 RBC 3.44* 3.71* 3.79* HGB 10.9* 11.6* 11.9 HCT 33.4* 35.4 36.4 MCV 96.8 95.6 96.0 RDW 15.2* 15.1* 15.0* PLT 341 343 322 BMP: Recent Labs 10/22/19 0510/23/19 0348 10/24/19 045 NA 142 144 139 K 3.2* 3.5 3.6 CL 104 97* 95* CO2 30 35* 36* BUN 15 25* 26* CREATININE 0.39* 0.53 0.48* GLUCOSE 96 104* 113* CALCIUM 8.2* 8.5 8.5 ANIONGAP 8 12 9 LIVER PROFILE: Recent Labs 10/22/19 0510/23/19 0348 10/24/19 0450 AST 56* 44 41 [...] (36.3 C) (Temporal) Resp 16 Ht 5' 9" (1.753 m) Wt 270 lb (122.5 kg) [...] Headache Ischemic colitis (HCC) MS (multiple sclerosis) ([facility]) Plan : Pysch cleared for I/P stay, [...] Services This report was created using the [employer] Speaking voice- activated system. Despiteprompt dictation and careful editorial review, there may be subtle contextual errors in this report, due to misrecognition of the spoken word. * Sepideh Lopez RCP - 10/23/2019 10:19 PM EDT Perfect Serve message sent to Dr. Saldaña and Dr. Naty Kim about NIV discontinuation on the floors and whether or not CPAP/BIPAP therapy is to continue at night for this patient. An order would be needed. I also spoke to the patient's nurse, Yanique nettles, who was going to contact the doctor. * Joselin Dugan RN - 10/23/2019 3:35 PM EDT Patient's assessment remains unchanged. She is resting comfortably in bed. * Joselin Dugan, RN - 10/23/2019 12:45 PM EDT [facility] [address] [facility]. * Deepti Kim, JIM - 10/23/2019 12:26 PM EDT Speech Language Pathology Facility/Department: [facility] Daily Treatment Note NAME: Charlie Nguyen : [...] (36.4 C) (Axillary) Resp 26 Ht 5' 9" (1.753 m) Wt 270 lb (122.5 kg) SpO2 94% BMI 39.87 kg/m I/O:24HR INTAKE/OUTPUT: Intake/Output Summary (Last 24 hours) at 10/23/2019 0805 Last data filed at 10/23/2019 0701 Gross per 24 hour Intake 4199 ml Output 4095 ml Net 104 ml 10/21 07 - 10/22 07 In: 4199 [P.O.:1360; I.V.:2502] Out: 4035 [Urine:4035] [...] SC Heparin [] SCD Limited * Rajendra Kmi MD - 10/22/2019 9:30 AM EDT Critical [...] (37 C) (Oral) Resp 18 Ht 5' 9" (1.753 m) Wt 270 lb (122.5 kg) SpO2 96% BMI 39.87 kg/m I/O:24HR INTAKE/OUTPUT: Intake/Output Summary (Last 24 hours) at 10/22/2019 0930 Last data filed at 10/22/2019 0601 Gross per 24 hour Intake Output 425 ml Net -425 ml 10/20 07 - 10/21 0700 In: - Out: 485 [Urine:485] CVP: Ventilator [...] 32 minutes so far today. * Polo Reza, SKI TOP TRIMMER - 10/22/2019 4:00 AM EDT ABG did not read over Results: pH: 7.401 CaO2: 48.1 PaO2: 86.4 HCO3: 29.9 Sat: 96.4 * Shirlene Singh, RD, LD - 10/21/2019 9:10 AM EDT [...] intakes, weight; follow up Nutrition Assessment: multiple receptionist telephone operator transferred to [facility] seizure-like activity, restlessness and confusion. pt awaiting breakfast/ speech therapy following Malnutrition Assessment: Malnutrition Status: At risk for malnutrition(as previously assessed per RD) Context: Acute illness or injury Nutrition Risk Level: High Nutrient Needs: Estimated Daily Total Kcal: 8837-4173 kcals(25-28) Estimated Daily Protein (g): 66-79(1-1.2) Estimated [...] Unable to assess Anthropometric Measures: Ht: 5' 9" (175.3 cm) Current Body Wt: 270 lb (122.5 kg) Admission Body Wt: 260 lb (117.9 kg) % Weight Change: , Unable to confirm wt history with patient at this time. Previous RD notation was30# wt gain in 11 months (240# on 10/2018) [place] Body Wt: 145 lb (65.8 kg), % [place] Body 186 BMI Classification: BMI > or equal to 40.0 Obese Class III Nutrition Interventions: Continue current diet, Continue current ONS Continued Inpatient Monitoring, Speech Therapy Nutrition Evaluation: Evaluation: Progressing toward goals(diet advanced 10/12 automation architect following ) Goals: pt will receive/tolerate adequate nutrition with safe swallow; Intakes will be >75% of meals/supplements Monitoring: Meal Intake, Supplement Intake, Diet Tolerance, Skin Integrity, Wound Healing, I&O,Mental Status/Confusion, Weight, Pertinent Labs, Chewing/Swallowing, Monitor Hemodynamic Status, Monitor Bowel Function Contact Number: [phone] * Nathaly Javier, PT - 10/21/2019 8:48 AM EDT Physical Therapy Facility/Department: [facility] Initial Assessment NAME: Charlie Nguyen : 1955 Date of Service: 10/21/2019 Chart review completed. Patient with multiple receptionist telephone operator and transferred to [facility], therapy will require new orders to resume treatment once patient is medically appropriate. Nathaly Javier, PT * Kristen Burton, JIM - 10/21/2019 8:47 AM EDT Speech Language Pathology Facility/Department: [facility] Speech Language/Dysphagia Daily Therapy Note NAME: Charlie [...] per plan of care. Kristen Burton M.A., [place]-HEARING AID REPAIRER Speech-Language Pathologist Time in 817 Time out 847 * Sandie Taylor OT - 10/21/2019 7:53 AM EDT Occupational Therapy Facility/Department: [facility] Daily Treatment Note NAME: Charlie Nguyen : 1955 Date of Service: 10/21/2019 Discharge Recommendations: Subacute/Nursing Home Facility, Continue to assess pending progress, LTACH Pt with COMMISSION ASSOCIATE and transferred to [facility]. Please re-order therapy when medically stable. Sandie Taylor OT * Doris Brink, LIVING SPECIALIST - 10/21/2019 7:43 AM EDT Physical Therapy Facility/Department: [facility] Daily Treatment Note NAME: Charlie Nguyen : 1955 Date of Service: 10/21/2019 General Chart Reviewed: Yes Missed reason: (Pt COMMISSION ASSOCIATE'd a second time and transferred to HICU. PT to address need for new orders vs continuation of treatment.) Doris Brink, LIVING SPECIALIST * Des Romero MD - 10/21/2019 6:31 AM EDT [facility], Pulmonary Critical Care and Sleep Medicine [address] [place] [address] Critical Care Note: Patient - Charlie Ngueyn, Age - 64 y.o. - 1955 Room Number - 232/[id number] Date of Admission - 10/03/2019 7:34 AM Hospital Day - 18 HPI/Subjective 10/21/2019 Patient transferred to the Intensive Care Unit from telemetry unit for change in mental status patient had 2 episodes were decreased mental status/hypoxia, as per patient's daughter before these episodes patient had an abnormal movements in her arms"seizure-like activity"patient hard to arouse fromthese episodes On noninvasive [...] other systems reviewed Vitals height is 5' 9" (1.753 m) and weight is 270 lb [...] Out: 160 [Urine:160] Date 10/21/19 0000 - 10/21/19 2359 Shift [id number] 24 Hour Total INTAKE Shift Total(mL/kg) OUTPUT [...] by psychiatry was to be transferred to [facility] once clinically stable History of multiple sclerosis/debility [...] Romero MD - 10/20/2019 3:46 PM EDT [facility], Pulmonary Critical Care and Sleep Medicine [address] [place] [address] Critical Care Note: Patient - Charlie Nguyen, Age - 64 y.o. - 1955 Room Number - [id number] [facility] - [id number] [facility] # - [id number] Date of Admission - 10/03/2019 7:34 AM Hospital Day - 17 HPI/Subjective Patient transferred to the Intensive Care Unit from telemetry unit for change in mental status patient had 2 episodes were decreased mental status/hypoxia, as per patient's daughter before these episodes patient had an abnormal movements in her arms"seizure-like activity"patient hard to arouse fromthese episodes Active Hospital [...] other systems reviewed Vitals height is 5' 9" (1.753 m) and weight is 270 lb [...] filled out and give to the social professionals. I also spoke with her daughter and informed her that evaluation has been filled out. Signing off for now. Contact with any concerns or questions * Doris Brink PTA - 10/20/2019 1:21 PM EDT Physical Therapy Facility/Department: [facility] TELEMETRY Daily Treatment Note NAME: Charlie Nguyen : 1955 Date of Service: 10/20/2019 General Chart Reviewed: Yes Missed reason: (Pt just COMMISSION ASSOCIATE'd. Will hold therapy until more stabilized and may need PT to readdressgoals. Will continue to follow) Doris Brink PTA * Kristen Burton, HEARING AID REPAIRER - 10/20/2019 1:10 PM EDT Speech Language Pathology Pt with recent COMMISSION ASSOCIATE. Pt became unresponsive and eyes rolled back in head. D/W Dr. Corona briefly after COMMISSION ASSOCIATE. Neurology was consulted. Will follow up as medically stable. Concern with aspiration and crackles bases/rhonchi. Pt's status waxes and wanes. * Kristen Howard OTA - 10/20/2019 12:03 PM EDT Occupational Therapy Facility/Department: [facility] TELEMET[facility] Daily Treatment Note NAME: Charlie Nguyen : 1955 Date of Service: 10/20/2019 Discharge Recommendations: Subacute/Nursing Home Facility, Continue to assess pending progress, LTACH [...] Ischemic colitis (HCC), and MS (multiple sclerosis) ([facility]). has a past surgical history that includes [...] Group Co-treatment Time In 906 Time Out 921 Minutes 15 Timed Code Treatment Minutes: 14 Minutes(ther ex) ARTHUR Tierney * Clinton Deleon MD - 10/20/2019 10:30 AM EDT [facility], Pulmonary Critical Care and Sleep Medicine [address] [place] [address] Patient - Charlie Nguyen, Age - 64 y.o. - 1955 Room Number - 258/[id number] Consulting - Max Bob DO Primary Care Physician - Moreno Oates Date of Admission - 10/03/2019 7:34 AM Hospital Day - 17 I have evaluated the patient and reviewed the case with the RURAL CARRIER ASSOCIATE. I agree with the current plan of [...] in bed. Confused this morning believing her traffic maintenance officer is her telephone.However more awake and alert than yesterday. In no acute distress this morning. Declined BiPAP lastnight. All other systems reviewed Objective Vitals height is 5' 9" (1.753 m) and weight is 270 lb [...] multiple drugs, accidental or unintentional, initial encounter [T50.451A] 10/03/2019 Assessment and Plan Acute hypoxic respiratory failure s/p mechanical ventilation likely r/t aspiration - Extubated 10/11 - Continue supplemental O2 to maintain SpO2 92%. Wean off as patient tolerates. - BD therapy continued. - Declined BiPAP last night. Unresponsive episode 10/18/19 - more awake and alert this morning. Lying in bed. - COMMISSION ASSOCIATE was called 10/17. ABG normal. CXR no [...] Planning for LTAC at discharge. Addendum 1250 COMMISSION ASSOCIATE called again today for patient as patient [...] Man, DO - 10/20/2019 10:05 AM EDT [facility] Palliative Care Transitions of Care Note Charlie [...] baseline patient is non-ambulatory and transfers to [facility] at home. She has not walked in [...] legally her ( 5-6 years), Brayden Nguyen ([phone]). Family prefers that Vicente Driscoll (daughter) is contacted first ([phone]). She has 2 living adultchildren (Vicente and [...] issue per family -see Dr Celestin in [place] -psych following Multiple sclerosis/debility -follows with the [facility] as outpatient -uses wheelchair at baseline -outpatient [...] Shaheen Man DO 10/20/2019, 10:01 AM * Ruddy Corona MD - 10/20/2019 8:01 AM EDT Hospitalist Progress Note 10/20/2019 8:01 AM [phone]: Please page me ([phone]) for patient care issues. [phone]: Please page [facility] night Hospitalist for any issues. Subjective: Admit Date: 10/03/2019 PCP: Moreno Oates Room#: 258/2581 Interval History: Pt with increased confusion today. More awake but at times discussing that there are "people that shouldn't hear our conversation". Lateron patient was having a conversation on her "cell phone" which was the telemetry box for her [...] (36.1 C) (Temporal) Resp 16 Ht 5' 9" (1.753 m) Wt 270 lb (122.5 kg) [...] Anticoagulation Advance Directive: Limited Discharge plannin-48 hours Ruddy Corona MD Division of Hospitalist Medicine Inpatient Medical Services PAGER: [phone] * Sunday Cao RN - 10/20/2019 4:42 AM EDT Pt elsa Rn not able to draw morning lab. Notified Dr. Gayle Acknowledged. * Sepideh Lopez RCP - 10/20/2019 12:01 AM EDT [facility] Respiratory Care Department Progress Note Patient was [...] mind regarding wearing PAP to hit their "call light" or inform their nurse to contact Respiratory. [...] the care of this patient, * Dulce Maria Kohler RN - 10/19/2019 3:45 PM EDT Feeding self with set up. Responding to verbal stimuli with sentences, expressing concerns over family matters, then becoming guarded when questioned. Appears most upset over family not taking her home. Allowed to verbalize concerns. * Kristen Burton SLP - 10/19/2019 10:48 AM EDT Speech Language Pathology Facility/Department: [facility] TELEMETRY Speech Language/Dysphagia Daily Therapy Note [...] refused her tylenol for nursing. Pt experienced COMMISSION ASSOCIATE lastevening with period of unresponsiveness. She had audible wheezes and crackles-cxray was negative for new processes: The trachea is midline. The heart is not enlarged. No focal areas of consolidation or volume loss are seen. There are no pleural effusions. The pulmonary vasculature may be at most mildly congested. The visualized bony structures are intact. D/C to [facility] was cx. Last pm (10/17) 3L nasal [...] per plan of care. Kristen Burton M.A., DALTON-HEARING AID REPAIRER Speech-Language Pathologist Time in 950 Time out 1031 * Clinton Deleon MD - 10/19/2019 10:48 AM EDT [facility], Pulmonary Critical Care and Sleep Medicine [address] [place] [address] Patient - Charlie Nguyen, Age - 64 y.o. - 1955 Room Number - 258/2581 Consulting - Max Bob DO Primary Care Physician - Moreno Oates Date of Admission - 10/03/2019 7:34 AM Hospital Day - 16 I have evaluated the patient and reviewed the case with the RURAL CARRIER ASSOCIATE. I agree with the current plan of care including the workup, evaluation, management, and diagnosis. Care plan has been discussed. I independently examined and evaluated the patient. The documentation below has been reviewed and edited as needed to reflect the findings of my evaluation COMMISSION ASSOCIATE was called on the patient yesterday for change in MS ABG/ Cxray reviewed follow neurologically Has been placed on empiric antibiotics Subjective/Events Past 24 hours/ROS Patient awake lying in bed. Complains of headache and nausea this morning. On 4 liters NC. Wearing BiPAP at night. COMMISSION ASSOCIATE called yesterday as patient became unresponsive and would not arouse despite sternal rub or verbal stimuli. She did arouse after suctioning was performed per notes. ABG within normal limits. All other systems reviewed Objective Vitals height is 5' 9" (1.753 m) and weight is 270 lb [...] Diagnosis Date Noted Unspecified mood (affective) disorder ([facility]) [F39] Acute respiratory failure with hypoxia ([facility]) [J96.01] Intentional drug overdose ([facility]) [T50.902A] 10/03/2019 Drug overdose, multiple drugs, accidental or unintentional, initial encounter [T50.911A] 10/03/2019 Assessment and Plan Acute hypoxic respiratory failure s/p mechanical ventilation likely r/t aspiration - Extubated 10/11 - Continue supplemental O2 to maintain SpO2 92%. Wean off as patient tolerates. - If plans are to d/c home with [facility] will need home O2 evaluation. - BD therapy - f/u CXR reviewed Unresponsive episode 10/18/19 - patient still a sleepy this morning however she is responding to questions - COMMISSION ASSOCIATE was called. ABG normal. CXR no significant [...] and patient Questions and concerns addressed. * Ruddy Corona MD - 10/19/2019 7:12 AM EDT Hospitalist Progress Note 10/19/2019 7:12 AM [phone]: Please page me ([phone]) for patient care issues. [phone]: Please page [facility] night Hospitalist for any issues. Subjective: Admit Date: 10/03/2019 PCP: Moreno Oates Room#: 258/2581 Interval History: COMMISSION ASSOCIATE called for unresponsiveness overnight. See significant event [...] (36.3 C) (Temporal) Resp 23 Ht 5' 9" (1.753 m) Wt 270 lb (122.5 kg) [...] up to transfer last night prior to COMMISSION ASSOCIATE; Plan now for guardianshipand placement 5. Transaminitis - Improved; Possibly 2/2 Linezolid; Monitor 6. Tachycardia - Resolved with BB 7. HTN - Restart BB 8. Hypokalemia - Resolved 9. Multiple sclerosis 10. Morbid Obesity due to excess calories 11. Depression 12. GERD 13. COVID-19 negative Plan - Antibiotics - Placement vs HHC -palliative care following -am labs, replace lytes prn -increase activity/PT/OT -DVT prophylaxis: [x] Lovenox [] Heparin [] SCDs [x] Encourage ambulation [] Already on Anticoagulation Advance Directive: Limited Discharge planning: TBD Ruddy Corona MD Division of Hospitalist Medicine Inpatient Medical Services PAGER: [phone] * Ashley Miller RN - 10/18/2019 7:13 PM EDT tulio notified of 3.1 potassium. * Ashley Miller RN - 10/18/2019 5:43 PM EDT Discharge cancelled. Patient remaining on 2 east after COMMISSION ASSOCIATE called. [facility] notified. * Ashley Miller RN - 10/18/2019 4:25 PM EDT NOTIFIED PATIENT'S DAUGHTER, VICENTE, OF TRANSFER TONIGHT TO [facility] AROUND 8PM PICKUP. * Ashley Miller RN - 10/18/2019 4:13 PM EDT REPORT GIVEN TO DEISY BARAJAS AT [facility]. ETA OF AMBULANCE IS 2000 HRS. * Ashley Miller RN - 10/18/2019 3:49 PM EDT ATTEMPTED TO CALL REPORT TO RN ON 5WEST. * Ashley Miller RN - 10/18/2019 3:46 PM EDT PATIENT GOING TO [phone] (REPORT LINE). * Ashley Miller RN - 10/18/2019 3:12 PM EDT INFECTIOUS DISEASE PHYSICIAN DISCONTINUED. PATIENT HAS BED NOW AT [facility] . WILL CALL REPORT DIRECTLY AND ARRANGE FOR TRANSPORT. * Kristen Burton SLP - 10/18/2019 2:07 PM EDT Speech Language Pathology Facility/Department: [facility] TELEMETRY Initial Speech/Language/Cognitive Assessment NAME: [...] did not repeat, did not initiate single "s" word, , two, provided an exampleand she perseverated on 'lillian" ..."puneet cat baby" Abstraction Subtest:1/2 Both expensive; their whores Orientation [...] oriented to place and time. Recommendations: Requires HEARING AID REPAIRER Intervention: Yes Duration/Frequency of Treatment: 5 visits [...] Alone Type of Home: House Cognition: MoCA -Gordon Cognitive Assessment. Version 7.1 Visuo-Spatial / Executive Function Subtest: c/n test, pt was unwilling to hold pen Naming Subtest:0/3 , lil loaf, upset lil loaf Delayed Distracted Recall:0/5 Pt was able to repeat all 5 with second repetition Attention Subtest:0/3 she had difficulty with distraction, overstimulated with task with ID letter A Language Subtest: did not repeat, did not initiate single "s" word, , two, provided an exampleand she perseverated on 'lillian" ..."puneet cat baby" Abstraction Subtest:1/2 Both expensive; their whores Orientation Subtest:07/07 1972 would not state month Overall Score: /30 Unable to complete all sections. Suggest [...] 10/18/2019 1:50 PM EDT Physical Therapy Facility/Department: [facility] TELEMETRY Daily Treatment Note NAME: Charlie Nguyen : 1955 Date of Service: 10/18/2019 General Chart Reviewed: Yes Missed reason: (Pt held secondary to being discharged to psychiatric hospital today per CM.) Doris Brink PTA * Kristen Burton SLP - 10/18/2019 1:16 PM EDT Speech Language Pathology Facility/Department: [facility] TELEMETRY Dysphagia Treatment Note Late entry 10/18/19 [...] alertness. Total Minutes: 20 minutes Kristen Burton M.A.CCC/HEARING AID REPAIRER Speech-Language Pathologist * Lisa Townsend, RD, LD - 10/18/2019 11:05 AM EDT Nutrition Assessment Type and Reason for Visit: Reassess Nutrition Recommendations: 1. Continue with Dental soft. Will send chopped meats and well done/cut up vegetables. HEARING AID REPAIRER following. 2. Continue with Ensure high protein [...] time. Pt continues to have decreased PO. HEARING AID REPAIRER is following to ensure safe swallow on [...] BUE edema; +2 pitting BLE edema 6. Jewelry Appraiser Strength-Measurably reduced(per RN flowsheet assessment) Nutrition Risk Level: High Nutrient Needs: Estimated Daily Total Kcal: 0442-5177 kcals(25-28) Estimated Daily Protein (g): 66-79(1-1.2) Estimated [...] Unable to assess Anthropometric Measures: Ht: 5' 9" (175.3 cm) Current Body Wt: 270 lb (122.5 kg) Admission Body Wt: 260 lb (117.9 kg) % Weight Change: , Unable to confirm wt history with patient at this time. Previous RD notation was30# wt gain in 11 months (240# on 10/2018) [place] Body Wt: 145 lb (65.8 kg), % [place] Body 186 BMI Classification: BMI > or [...] encounter [T50.911A] 10/03/2019 Goals of care -patient may lack capacity for medical decision-making. She more confused and delusional today. Strongly recommend psychiatry input for this evaluation. -surrogate decision-maker is legally her ( 5-6 years), Brayden Nguyen ([phone]). Family prefers that Vicente Driscoll (daughter) is contacted first ([phone]). She has 2 living adultchildren (Vicente and [...] issue per family -see Dr Celestin in [place] -psych following Multiple sclerosis/debility -follows with the [facility] as outpatient -uses wheelchair at baseline -outpatient [...] of Life, Remain at Home and Preserve [place]/Autonomy/Control Advance Directives: limited code- no CPR or [...] (37.1 C) (Temporal) Resp 16 Ht 5' 9" (1.753 m) Wt 270 lb (122.5 kg) [...] Psychiatric: Comments: Talking with bizarre tangential thoughts Vidalia Symptom Assessment Score Vidalia Score Pain Score 0 Tiredness Score 5 [...] 64 y.o. female who was seen for [id number]-av-ddcp on 10/10/19 who is hospice appropriate with an expected prognosis of 6 months or less due to the following: Not applicable Write hospice narrative \\ * Kristen Howard OTA - 10/17/2019 2:55 PM EDT Occupational Therapy Facility/Department: [facility] TELEMET[facility] Daily Treatment Note NAME: Charlie Nguyen : 1955 Date of Service: 10/17/2019 Discharge Recommendations: Subacute/Nursing Home Facility, Continue to assess pending progress, LTACH [...] diagnosis was Intentional drug overdose, initial encounter ([facility]). Diagnoses of Acute hypoxemic respiratory failure ([facility]) and Leukocytosis, unspecified type were also pertinent to this visit. has a past medical history of Anxiety, Brain tumor ([facility]), Depression, GERD (gastroesophageal refluxdisease), Headache, Ischemic colitis (HCC), and MS (multiple sclerosis) ([facility]). has a past surgical history that includes [...] attending to directions;Difficulty dividing attention Memory: Decreased intermodal dispatcher memory;Decreased short term memory;Decreased recall of recent [...] this admission. AUGUSTINE attempted to educate pt system consultant button but pt not attending. Patient Goals Patient goals : improve ADL indep Therapy Time Individual Concurrent Group Co-treatment Time In 1255 Time Out 1308 Minutes 13 Timed Code Treatment Minutes: 12 Minutes(ther ex) ARTHUR Tierney * Kristen Burton, HEARING AID REPAIRER - 10/17/2019 2:40 PM EDT Speech Language Pathology Facility/Department: [facility] TELE[facility] Dysphagia Treatment Note NAME: Charlie Nguyen [...] L nasal cannula-pt O2 was off when HEARING AID REPAIRER entered SpO2 was 87% and increased to [...] demonstrates lack of initiation. Pt stated that "I don't have MS, someone lied about that." HEARING AID REPAIRER only asked her if she was in [...] eval. Total Minutes: 21 minutes Kristen Burton M.A.CCC/HEARING AID REPAIRER Speech-Language Pathologist * KeenaDoris, LIVING SPECIALIST - 10/17/2019 9:39 AM EDT Physical Therapy Facility/Department: [facility] TELEMETRY Daily Treatment Note NAME: Charlie Nguyen : 1955 Date of Service: 10/17/2019 Discharge Recommendations: Subacute/Nursing Home Facility Assessment Assessment: Pt demonstrated an improvement [...] diagnosis was Intentional drug overdose, initial encounter ([facility]). Diagnoses of Acute hypoxemic respiratory failure ([facility]) and Leukocytosis, unspecified type were also pertinent to this visit. has a past medical history of Anxiety, Brain tumor ([facility]), Depression, GERD (gastroesophageal refluxdisease), Headache, Ischemic colitis (HCC), and MS (multiple sclerosis) ([facility]). has a past surgical history that includes [...] attending to directions;Difficulty dividing attention Memory: Decreased care home memory;Decreased short term memory;Decreased recall of recent [...] neuro) Doris Brink PTA * Ching Sethi, DAGOBERTO - ENERGY DERIVATIVES TRADER - 10/17/2019 9:02 AM EDT [facility], Pulmonary Critical Care and Sleep Medicine [address] [place], [place] [id number] Patient - Charlie Nguyen, Age - 64 [...] they had together. She then told me " get out of my room". I explained to her that I work with the pulmonary service and that I was coming in to check on her breathing. She said " my breathing is and has been fine".Currently on 2 liters NC. All other systems reviewed Objective Vitals height is 5' 9" (1.753 m) and weight is 270 lb [...] - Regular rate and rhythm on the help desk manager. Abdomen - obese. Neurologic - Awake, [...] 97.6 PLT 575* BMP: Recent Labs 10/16/19 0352 NA 142 K 3.6 CL 107 CO2 24 BUN 24* CREATININE 0.53 GLUCOSE 105* ABG: Lab Results Component Value Date PH 7.42 10/05/2019 No results found for: IFIO2, MODE, SETTIDVOL, SETPEEP LIVER PROFILE Recent Labs 10/16/19 0352 AST 86* ALT 219* BILIDIR 0.0 BILITOT 0.8 ALKPHOS 131* INR No results found for: INR, PROTIME PTT No results found for: APTT Cultures Respiratory culture + MSSA Respiratory culture + Staph aureus and Corynebacterium striatum Urine antigens negative Blood cultures- NGTD COVID-19 negative Active Hospital Problem List Active Hospital Problems Diagnosis Date Noted Unspecified mood (affective) disorder ([facility]) [F39] Acute respiratory failure with hypoxia ([facility]) [J96.01] Intentional drug overdose ([facility]) [T50.902A] 10/03/2019 Drug overdose, multiple drugs, accidental or unintentional, initial encounter [T50.911A] 10/03/2019 Assessment and Plan Acute hypoxic respiratory failure s/p mechanical ventilation likely r/t aspiration - Extubated 10/11 - Continue supplemental O2 to maintain SpO2 92%. Wean off as patient tolerates. - If plans are to d/c home with [facility] will need home O2 evaluation. - [...] and patient Questions and concerns addressed. * Ruddy Corona MD - 10/17/2019 7:22 AM EDT Hospitalist Progress Note 10/17/2019 7:23 AM [phone]: Please page me ([phone]) for patient care issues. [phone]: Please page [facility] night Hospitalist for any issues. Subjective: Admit Date: 10/03/2019 PCP: Moreno Oates Room#: 258/3333 Interval History: Pt seems to be playing with certain staff members. Sitter would state she was confused, but then look up at me and smile, and have a full conversation. Pt again very adamant about "going home". Apologized for "squeezing my hand" yesterday. Denies CP, SOB, abdominal pain, N/V/D, [...] colitis (HCC) MS (multiple sclerosis) (HCC) Medications: metoprolol 50 mg Oral BID cloNIDine [...] (37.5 C) (Temporal) Resp 16 Ht 5' 9" (1.753 m) Wt 270 lb (122.5 kg) [...] negative Plan -Psych re-evaluation - Placement vs [facility] -palliative care following -am labs, replace lytes prn -increase activity/PT/OT -DVT prophylaxis: [x] Lovenox [] Heparin [] SCDs [x] Encourage ambulation [] Already on Anticoagulation Advance Directive: Limited Discharge plannin-48 hours pending return visit from Psychiatry Ruddy Corona MD Division of Hospitalist Medicine Inpatient Medical Services PAGER: [phone] * Danisha Clinton RN - 10/17/2019 4:51 AM EDT Patient refused blood work. Dr Haro notified. No further interventions at this time. * Danisha Clinton RN - 10/16/2019 9:07 PM EDT Patient refuses assessment of any kind, refuses all medication, refuses vital signs. Patient swearing at staff. Verbally hostile. Patient educated on risks of non-compliance to her health, patient rejected education and stated "oh you think so" to which this RN replied "yes" and she in turn stated "nope" and continued to refuse assessment. Dr Haro [...] 10/16/2019 12:10 PM EDT Physical Therapy Facility/Department: [facility] TELEMETRY Daily Treatment Note NAME: Charlie Nguyen : 1955 Date of Service: 10/16/2019 Discharge Recommendations: Subacute/Nursing Home Facility Assessment Assessment: Pt has weak quad contraction on RLE and unable to to perform a SAQ. Pt would benefit from therapy to progress safe functional mobility REQUIRES PT FOLLOW UP: Yes Activity Tolerance Activity Tolerance: Patient limited by fatigue;Patient limited by endurance Patient Diagnosis(es): The primary encounter diagnosis was Intentional drug overdose, initial encounter ([facility]). Diagnoses of Acute hypoxemic respiratory failure ([facility]) and Leukocytosis, unspecified type were also pertinent to this visit. has a past medical history of Anxiety, Brain tumor ([facility]), Depression, GERD (gastroesophageal refluxdisease), Headache, Ischemic colitis ([facility]), and MS (multiple sclerosis) ([facility]). has a past surgical history that includes [...] Timed Code Treatment Minutes: 15 Minutes(exercise) Angela Callejas, LIVING SPECIALIST * Negra Peter - 10/16/2019 11:08 AM EDT Pt. Refusing to be repositioned. Asked if she was uncomfortable or experiencing any pain and pt. Replied "no". Did get pt. Fresh water and ice as requested. * Ruddy Corona MD - 10/16/2019 8:57 AM EDT Hospitalist Progress Note 10/16/2019 8:57 AM [phone]: Please page me ([phone]) for patient care issues. [phone]: Please page IMS night Hospitalist for any issues. Subjective: Admit Date: 10/03/2019 PCP: Moreno Oates Room#: 258/2581 Interval History: Pt more verbal today. Repeatedly saying "I'm going home" and seemed upset when discussing repeat evaluation by psychiatry. Pt AAO x 3 but at times would request odd gestures, such as asking for my hand and then squeezing my "favorite two fingers" . Denies CP, SOB, abdominal pain, N/V/D, [...] 575* BMP: Recent Labs 10/14/1942510/15/19 0516 10/16/19 035 NA 141 143 142 K 3.1* 3.6 [...] (36.9 C) (Temporal) Resp 22 Ht 5' 9" (1.753 m) Wt 270 lb (122.5 kg) [...] Anticoagulation Advance Directive: Limited Discharge plannin-48 hours Ruddy Corona MD Division of Hospitalist Medicine Inpatient Medical Services PAGER: [phone] * Ruddy Corona MD - 10/15/2019 7:39 AM EDT Hospitalist Progress Note 10/15/2019 7:39 AM [phone]: Please page me ([phone]) for patient care issues. [phone]: Please page IMS night Hospitalist for any issues. Subjective: Admit Date: 10/03/2019 PCP: Moreno Oates Room#: 258/2581 Interval History: Pt more somnolent today. No Seroquel given in last 48 hours. Per sitter and nursing, had been "sleeping" most of the morning. Able to be [...] mg Subcutaneous Daily LABS: CBC: Recent Labs 10/13/1932610/14/19 0426 10/15/19 0516 WBC 15.9* 19.8* 17.4* RBC 3.78* 3.86 3.88 HGB 11.9 12.2 12.2 HCT 36.1 37.4 38.5 MCV 95.7 96.9 99.0* RDW 14.7* 15.5* 15.6* PLT 668* 669* 654* BMP: Recent Labs 10/13/1932610/13/19 0942 10/14/19 0426 10/15/19 0516 NA 142 -- 141 143 K 2.8* 3.4* 3.1* 3.6 CL 105 -- 105 109* CO2 28 -- 27 24 BUN 15 -- 22* 24* CREATININE 0.52 -- 0.68 0.56 GLUCOSE 110* -- 106* 117* CALCIUM 8.2* -- 8.2* 8.2* ANIONGAP 9 -- 9 10 LIVER PROFILE: Recent Labs 10/13/19 0327 10/14/19 0426 10/15/19 0516 AST 118* 141* 146* ALT 122* [...] (37 C) (Temporal) Resp 24 Ht 5' 9" (1.753 m) Wt 270 lb (122.5 kg) [...] Anticoagulation Advance Directive: Limited Discharge planning: TBD Ruddy Corona MD Division of Hospitalist Medicine Inpatient Medical Services PAGER: [phone] * Shaheen Man DO - 10/14/2019 4:46 [...] legally her ( 5-6 years), Brayden Nguyen ([phone]). She has 2 living adult children (Vicente [...] issue per family -see Dr Celestin in [place] -psych following Multiple sclerosis/debility -follows with the [facility] as outpatient -uses wheelchair at baseline -outpatient [...] of Life, Remain at Home and Preserve Concho/Autonomy/Control Advance Directives: limited code- no CPR or [...] (37 C) (Temporal) Resp 24 Ht 5' 9" (1.753 m) Wt 270 lb (122.5 kg) [...] response to questions, appears flat and depressed Vidalia Symptom Assessment Score Vidalia Score Pain Score 0 Tiredness Score 5 [...] 64 y.o. female who was seen for [id number] on 10/10/19 who is hospice appropriate with an expected prognosis of 6 months or less due to the following: Not applicable Write hospice narrative \\ * Kristen Burton, JIM - 10/14/2019 1:28 PM EDT Speech Language Pathology Facility/Department: [facility]E TELEMETRY Dysphagia Treatment Note NAME: Charlie Nguyen [...] least 30 minutes Pain:no specific complaints. S: "Do I have something on?" "They don't need to make me Omar Mares." Pt was unable to elaborate on this [...] of encouragement. Pt accepted 1/2 piece of Cypriot toast, 6 b ites of cottage cheese, 4 bites of eggs, 2 bites of pudding, multiple drinks of mild and accepted only 1 drink of ensure- "that tastes funny." Pt was able to independently move head [...] (recline slightly) Total Minutes: 30minutes Kristen Burton M.A.CCC/HEARING AID REPAIRER Speech-Language Pathologist * Max Bob DO - 10/14/2019 12:08 PM EDT Hospitalist Progress Note 10/14/2019 12:08 PM [phone]: Please page me ([phone]) for patient care issues. [phone]: Please page IMS night Hospitalist for any issues. Subjective: Admit Date: 10/03/2019 PCP: Moreno Oates Room#: 258/2581 Interval History: Patient transferred out of ICU [...] Headache Ischemic colitis (HCC) MS (multiple sclerosis) ([facility]) Medications: linezolid 600 mg Oral 2 times per day pantoprazole 40 mg Oral QAM AC QUEtiapine 25 mg Oral BID sodium chloride flush 10 mL Intravenous 2 times per day enoxaparin 40 mg Subcutaneous Daily LABS: CBC: Recent Labs 10/12/19 0408 10/13/19 0327 10/14/19 0426 WBC 9.4 15.9* 19.8* RBC 3.36* [...] (37 C) (Temporal) Resp 24 Ht 5' 9" (1.753 m) Wt 270 lb (122.5 kg) [...] Anticoagulation Advance Directive: Limited Discharge planning: TBD Max Bob DO Division of Hospitalist Medicine Inpatient Medical Services PAGER: [phone] * Kristen Burton, HEARING AID REPAIRER - 10/14/2019 11:35 AM EDT Speech Language Pathology Attempted at 10:30. Pt continue very flat with limited participation. Will attempt again at later time. Kristen Burton MA, [facility]-HEARING AID REPAIRER Speech-Language Pathologist * Lisa Townsend RD, LD - 10/14/2019 10:01 AM EDT Nutrition Assessment Type and Reason for Visit: Reassess Nutrition Recommendations: 1. Continue with Dental soft diet. HEARING AID REPAIRER following to ensure safe swallowing. 2. Initiate [...] from ICU and extubated at this time. HEARING AID REPAIRER is following pt on Dental soft diet. [...] fluid accumulation, Extremities(+2-2 pitting all ext) 6. Jewelry Appraiser Strength-Not measured Nutrition Risk Level: High Nutrient Needs: Estimated Daily Total Kcal: 9545-8940 kcals(25-28) Estimated Daily Protein (g): 66-79(1-1.2) Estimated [...] Unable to assess Anthropometric Measures: Ht: 5' 9" (175.3 cm) Current Body Wt: 270 lb (122.5 kg) Admission Body Wt: 260 lb (117.9 kg) % Weight Change: , was 150 lbs in 2015; 10/2018 was 240 lbs. incr 30 lbs in 11 mo? [place] Body Wt: 145 lb (65.8 kg), % [place] Body 186 BMI Classification: BMI 35.0 - [...] Function, Mental Status/Confusion Contact Number: [phone] * Sethi Ching, DAGOBERTO - ENERGY DERIVATIVES TRADER - 10/14/2019 9:11 AM EDT [facility], Pulmonary Critical Care and Sleep Medicine [address] [place] [address] Patient - Charlie Nguyen, Age - 64 y.o. - 1955 Room Number - 258/2581 Consulting - Max Bob DO Primary Care Physician - Moreno Oates Date of Admission - 10/03/2019 7:34 AM Hospital Day - 11 Subjective/Events Past 24 hours/ROS Patient awake lying in bed. project assistant at bedside checking vitals. 96% on 3 liters NC. She shakes her head no when I asked if she was having any chest pain, shortness of breath or cough. Limited verbal interaction with patient this morning. All other systems reviewed Objective Vitals height is 5' 9" (1.753 m) and weight is 270 lb [...] OR ondansetron, acetaminophen Labs CBC Recent Labs 10/14/19 042 WBC 19.8* HGB 12.2 HCT 37.4 MCV [...] patient and reviewed the case with the RURAL CARRIER ASSOCIATE. I agree with the current plan of [...] of her. Pt. States she is still "picking" at her tray. Currently watching TV. Bed pads changed under pt. Pt. Looks and says she is comfortable. * Negra Peter - 10/13/2019 5:06 PM EDT Offered to reposition pt. Pt. Said "no, I am just fine the way I am". I asked if she had any discomfort or pain, the pt replied "No, I just want to watch TV' * Kristen Burton SLP - 10/13/2019 4:11 PM EDT Speech Language Pathology Facility/Department: [facility] TELEMETRY Dysphagia Treatment Note NAME: Charlie [...] po this am with complaint of 'heart burn" O: Assess tolerance of recommended diet. A: [...] water. Total Minutes: 22 minutes Kristen Burton M.A.CCC/HEARING AID REPAIRER Speech-Language Pathologist * Shaheen Man DO - [...] legally her ( 5-6 years), Brayden Nguyen ([phone]). She has 2 living adult children (Vicente and Art) who are involved, but are NOT legally decision-makers. -discussed patient's surrogate decision-maker situation. She confirms unequivocally that she still wants her estranged to her medical decision-maker. She does not want a HCPOA. "He knows me best and I trust him." -we also discussed disposition and she wants to go home. I discussed the risks of that and she doesnot feel that they are of concern to her. She wants to have HHC PT/OT. Family reports that in the past [...] -psych following Multiple sclerosis/debility -follows with the [facility] as outpatient -uses wheelchair at baseline -requesting records from [facility] Palliative care encounter -DNRCCA/DNI->ordered as limited code [...] of Life, Remain at Home and Preserve [place]/Autonomy/Control Advance Directives: limited code- no CPR or intubation, okay for NIV Surrogate: Spouse Prognosis: unknown Spiritualassessment: No spiritual distress identified Bereavement and grief: To Be Determined ROS: See palliative care ROS/ESAS below; see HPI Review of Systems Social history: Duarte status: no Marital status: , 5-6 years Children: 3 children (1 daughter, 1 living son, 1 living daughter) Living status: alone Work history: Family Meeting: Participants:No Family Meeting Held Today Family meeting was held to discuss: Objective: Physical Exam BP 114/69 Pulse 113 Temp 98.8 F (37.1 C) (Temporal) Resp 18 Ht 5' 9" (1.753 m) Wt 270 lb (122.5 kg) [...] time. Psychiatric: Comments: No anxiety or agitation Vidalia Symptom Assessment Score Vidalia Score Pain Score 0 Tiredness Score 5 [...] 64 y.o. female who was seen for [id number]-[id number] on 10/10/19 who is hospice appropriate with an expected prognosis of 6 months or less due to the following: Not applicable Write hospice narrative \\ * Sandie Taylor, OT - 10/13/2019 1:20 PM EDT Occupational Therapy Occupational Therapy Initial Assessment Date: 10/13/2019 Patient Name: Charlie Nguyen : 1955 Date of Service: 10/13/2019 Discharge Recommendations: Subacute/Nursing Home Facility, Continue to assess pending progress, LTACH [...] baby wipes per self, transfers self to [facility] via couch) Homemaking Assistance: (son brings her food in am and after work daily) Homemaking Responsibilities: (she is unable, daughter reports not getting done) Ambulation Assistance: (does not ambulate) Transfer Assistance: Independent Active Counter Intelligence: No Patient's Counter Intelligence Info: son Occupation: On disability Additional Comments: [...] to situation;Disoriented to time;Disoriented to place(pt states "July") Observation/Palpation Posture: Poor Observation: pt appears to [...] attending to directions;Difficulty dividing attention Memory: Decreased care home memory;Decreased short term memory;Decreased recall of recent [...] Inpatient Daily Activity Raw Score: 10 (10/13/19 1306) AM-PAC Inpatient ADL T-Scale Score : 27.31 (10/13/19 1306) ADL Inpatient CMS 0-100% Score: 74.7 (10/13/19 1306) ADL Inpatient [facility] G-Code Modifier : CL (10/13/19 130) Goals Short term goals Time Frame for [...] 10/13/2019 1:20 PM EDT Physical Therapy Facility/Department: [facility] TELEMETRY Initial Assessment NAME: Charlie Nguyen : 1955 Date of Service: 10/13/2019 Discharge Recommendations: Subacute/Nursing Home Facility Assessment Body structures, Functions, Activity limitations: Decreased functional mobility ;Decreased strength;Decreased endurance;Decreased cognition;Decreased ROM;Decreased ADL status Assessment: Pt admitted for being unresponsive at home. 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 Pt supposedly uses wheelchair but pt denies that. Pt is confused during session. Pt states "I was told to be off my feet for 3 [address] Dr[address] Webb due to my knee surgery". Pt has old looking scar on RLE. [...] diagnosis was Intentional drug overdose, initial encounter ([facility]). Diagnoses of Acute hypoxemic respiratory failure ([facility]) and Leukocytosis, unspecified type were also pertinent to this visit. has a past medical history of Anxiety, Brain tumor ([facility]), Depression, GERD (gastroesophageal refluxdisease), Headache, Ischemic colitis (HCC), and MS (multiple sclerosis) ([facility]). 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 Pt stated "I can do it" and able to progress toSBA x1 for [...] 17 Transfer Plan of care over to SBhysical Therapy staff. Goals and/or treatment plan was established in collaboration with patient/family/other (specify). No Bed/chair alarm on prior to session and no alarm after session This PT wore N95, gloves and goggles during session Byron Jackson PT * Negra Peter - 10/13/2019 10:48 AM EDT Hooked up hospital phone in pt. Room for her to speak to her daughter Vicente who called. Phone call was going fine at first, pt told her daughter "Im confused". Then soon after pt. Was telling daughternorma not really her on the phone and that she was happily and began calling her names and saying profanities to her, and then hung up on her. Pt. Looked at me and said "That b%$#* is just mad my chose me and not her, wait till I get out of here and get my hands on her" pt. Remains agitated and talking about phone call. Tried to redirect pt. And ask if she would like to watch TV andpt. Said no. I unhooked hospital phone and took out of the pt. Room. * Nick Stover RCP - 10/13/2019 9:23 AM EDT Patient Evaluation [...] temperature which was 99.1*F. Pt keeps repeating " I need 40mg of that medication for it to work to take my heartburn away" Told pt. I would alert RN that she was havingheartburn * Clinton Deleon MD - 10/13/2019 6:22 AM EDT Critical Care Note: Patient - Charlie Nguyen, Age - 64 y.o. - 1955 Room Number - 232/2329 [facility] - [id number] Date of Admission - 10/03/2019 7:34 AM [...] hypoxia (HCC) [J96.01] Intentional drug overdose (HCC) [T50.262A] 10/03/2019 Drug overdose, multiple drugs, accidental or unintentional, initial encounter [T50.181A] 10/03/2019 All other systems reviewed Vitals height is 5' 9" (1.753 m) and weight is 270 lb [...] Piggyback:500] Out: 3785 [Urine:3775; Stool:10] Date 10/13/19 - 10/13/192358 Shift 2339-0301 6527-0259 [id number] 24 Hour Total INTAKE I.V.(mL/kg) 978(8) 978(8) [...] on file Exam VITALS height is 5' 9" (1.753 m) and weight is 270 lb [...] Extremities - no cyanosis, clubbing or edema 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 * Kristen Burton, HEARING AID REPAIRER - 10/12/2019 2:38 PM EDT Speech Language Pathology Facility/Department: [facility] CLINICAL BEDSIDE SWALLOW EVALUATION NAME: Charlie Nguyen [...] Chest Xray/CT of Chest: ( Date 10/10/2019 )\\ A single portable AP radiograph of the [...] one diet consistency restricted Treatment Plan Requires HEARING AID REPAIRER Intervention: Yes Duration/Frequency of Treatment: 2 visits D/C Recommendations: Inpatient rehabilitation(psych rehab suspected) Referral To: (Psych Eval, pending s/p extubation) Recommended Diet and Intervention Diet Solids Recommendation: Dental Soft Liquid Consistency Recommendation: Thin Recommended Form of Meds: PO Recommendations: Assist feed Therapeutic Interventions: Patient/Family education;Therapeutic PO trials with HEARING AID REPAIRER;Diet tolerance monitoring Compensatory Swallowing Strategies Compensatory Swallowing [...] tolerated. General Chart Reviewed: Yes Subjective Subjective: "f*%# that whore" POINTING to her left. Reassured pt now one is in the room. "She's under the bed stabbing me through the mattress, OUE" Behavior/Cognition: Alert;Distractible;Requires cueing Respiratory Status: O2 via [...] preparation and oral holding with distration to "person in herroom." She required redirection back to task throughout session. Often whispering so that "someone"(?) would not hear her. Alternating liquids as [...] recommendations: Patient;RN Education Patient Education: Role of HEARING AID REPAIRER, recommendations and need for assist Patient Education Response: Verbalizes understanding;Needs reinforcement Safety Devices in place: Yes Type of devices: Other (comment)(sitter at bedside or safety) Therapy Time HEARING AID REPAIRER Individual Minutes Time In: 1338 Time Out: 1405 Minutes: 27 JIM Franz 10/12/2019 2:45 PM * Anish Reed [facility] - 10/12/2019 1:21 PM EDT Pharmacy Vancomycin Consult Follow-Up Note Current Dosin.5g q12hr Recent Labs 10/11/19 0508 10/12/19 0408 BUN 16 21* Recent Labs 10/11/19 0508 10/12/19 0408 CREATININE 0.50* 0.48* Recent Labs 10/11/19 0508 10/12/19 0408 WBC 8.2 9.4 Ht Readings from Last 1 Encounters: 10/05/19 5' 9" (1.753 m) Wt Readings from Last 1 [...] of new regimen. Thank you. * Shaheen Man, - 10/12/2019 1:14 PM EDT Palliative Care [...] legally her ( 5-6 years), Brayden Nguyen ([phone]). She has 2 living adult children (Vicente [...] consult pending Multiple sclerosis/debility -follows with the [facility] as outpatient -uses wheelchair at baseline -requesting records from [facility] Palliative care encounter -DNRCCA/DNI->ordered as limited code [...] mental status Review of Systems Social history: Duarte status: no Marital status: , 5-6 years Children: 3 children (1 daughter, 1 living son, 1 living daughter) Living status: alone Work history: Family Meeting: Participants:No Family Meeting Held Today Family meeting was held to discuss: Objective: Physical Exam BP (!) 171/98 Pulse 58 Temp 98.2 F (36.8 C) (Oral) Resp 17 Ht 5' 9" (1.753 m) Wt 270 lb (122.5 kg) [...] time. Psychiatric: Comments: No anxiety or agitation Vidalia Symptom Assessment Score Vidalia Score Pain Score 0 Tiredness Score 5 [...] 64 y.o. female who was seen for [id number] on 10/10/19 who is hospice appropriate with an expected prognosis of 6 months or less due to the following: Not applicable Write hospice narrative \\ * Renay Calix RCP - 10/12/2019 9:27 AM EDT [facility] Respiratory Care Department Progress Note Spontaneous Breathing [...] y.o. 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 She has 2 living adult children (Vicente [...] consult pending Multiple sclerosis/debility -follows with the [facility] as outpatient -uses wheelchair at baseline -unclear [...] mental status Review of Systems Social history: Duarte status: no Marital status: , 5-6 years Children: 3 children (1 daughter, 1 living son, 1 living daughter) Living status: alone Work history: Family Meeting: Participants:No Family Meeting Held Today Family meeting was held to discuss: Objective: Physical Exam BP (!) 155/82 Pulse 54 Temp 98.6 F (37 C) (Axillary) Resp 20 Ht 5' 9" (1.753 m) Wt 270 lb(122.5 kg) SpO2 [...] dry. Psychiatric: Comments: No anxiety or agitation Vidalia Symptom Assessment Score Vidalia Score Pain Score See FLACC Tiredness Score [...] 64 y.o. female who was seen for [id number] on 10/10/19 who is hospice appropriate with an expected prognosis of 6 months or less due to the following: Not applicable Write hospice narrative \\ * Devin Levine RCP - 10/11/2019 8:20 AM EDT [facility] Respiratory Care Department Progress Note Spontaneous Breathing [...] 1955 Room Number - 232/2329 N - [id number] Date of Admission - 10/03/2019 7:34 AM [...] other systems reviewed Vitals height is 5' 9" (1.753 m) and weight is 270 lb [...] SETTIDVOL, SETPEEP Medications propofol 50 mg/hr (10/10/19 215) dexmedetomidine (PRECEDEX) IV infusion 1.3 mcg/kg/hr (10/11/19 [...] 20; 55 Exam VITALS height is 5' 9" (1.753 m) and weight is 270 lb [...] Extremities - no cyanosis, clubbing or edema 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 * Louise Jay RCP - 10/11/2019 5:25 AM EDT 10/11/19 0520 Spontaneous Breathing Trial (SBT) RT Doc Contraindications to SBT? None (failed extubation 10/08; FiO2 borderline) Rate Measured 17 br/min Pulse 62 SpO2 96 % * Dulce Maria Chawla RD, LD - 10/10/2019 12:46 PM EDT Nutrition [...] fluid accumulation, Extremities(+2-2 pitting all ext) 6. Jewelry Appraiser Strength-Not measured Nutrition Risk Level: High Nutrient Needs: Estimated Daily Total Kcal: 2731-1254 Estimated Daily Protein (g): 79-132 Estimated Daily [...] ONS intake: NPO Anthropometric Measures: Ht: 5' 9" (175.3 cm) Current Body Wt: 270 lb (122.5 kg)(no new wt) Admission Body Wt: Usual Body Wt: % Weight Change: , was 150 lbs in 2015; 10/2018 was 240 lbs. incr 30 lbs in 11 mo? [place] Body Wt: 145 lb (65.8 kg), % [place] Body 186 Adjusted Body Wt: , body [...] Function Contact Number: [phone] * Toyin Urias SKI TOP TRIMMER - 10/10/2019 8:52 AM EDT [facility] Respiratory Care Department Progress Note Spontaneous Breathing [...] 64 y.o. - 1955 Room Number - [address] [place] [address] [id number] Date of Admission - 10/03/2019 7:34 AM [...] other systems reviewed Vitals height is 5' 9" (1.753 m) and weight is 270 lb [...] Date 10/10/19 0000 - 10/10/19 2359 Shift [id number] 5310-0947 4542-4824 24 Hour Total INTAKE P.O.(mL/kg/hr) 0 0 [...] SETTIDVOL, SETPEEP Medications propofol 35 mg/hr (10/10/19 2777) dexmedetomidine (PRECEDEX) IV infusion 1.2 mcg/kg/hr (10/10/19 9270) ipratropium-albuterol 1 ampule Inhalation Q4H chlorhexidine 15 mL Mouth/Throat BID famotidine (PEPCID) injection 20 mg Intravenous BID QUEtiapine 25 mg Oral BID ampicillin-sulbactam 3 g Intravenous Q6H sodium chloride flush 10 mL Intravenous 2 times per day enoxaparin 40 mg Subcutaneous Daily IV Diet/Nutrition No diet orders on file Exam VITALS height is 5' 9" (1.753 m) and weight is 270 lb [...] Extremities - no cyanosis, clubbing or edema 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 * Louise Jay, SKI TOP TRIMMER - 10/10/2019 6:33 AM EDT 10/10/19 0630 [...] Weak, moist, nonproductive cough noted. Pt HOB [id number] degrees and cough/deep breathing encouraged. Bilateral soft wrist restraints removed. OG discontinued. Will continue to monitor. * Kimberli Delvalle RCP - 10/09/2019 8:57 AM EDT [facility] Respiratory Care Department Progress Note Spontaneous Breathing [...] 10/09/2019 7:09 AM EDT Critical Care Note: [facility], Pulmonary Critical Care and Sleep Medicine [address] [place] [address] Patient - Charlie Nguyen, Age - 64 y.o. - 1955 Room Number - 232/[id number] [facility] - [id number] [facility] # - [id number] Date of Admission - 10/03/2019 7:34 AM Hospital Day - 6 HPI/Subjective: On Precedex infusion, awake eyes are open follow simple commands Active Hospital Problem List Active Hospital Problems Diagnosis Date Noted Acute respiratory failure with hypoxia (HCC) [J96.01] Intentional drug overdose (HCC) [T50.902A] 10/03/2019 Drug overdose, multiple drugs, accidental or unintentional, initial encounter [T50.911A] 10/03/2019 Vitals height is 5' 9" (1.753 m) and weight is 270 lb [...] 20; 55 Exam VITALS height is 5' 9" (1.753 m) and weight is 270 lb [...] Goodrich RCP - 10/08/2019 1:42 PM EDT [facility] Respiratory Care Department Progress Note Spontaneous Breathing [...] 10/08/2019 9:51 AM EDT Critical Care Note: [facility], Pulmonary Critical Care and Sleep Medicine [address] [place] [address] Patient - Charlie Nguyen, Age - 64 y.o. - 1955 Room Number - 232/[id number] [facility] [id number] [id number] Date of Admission - 10/03/2019 7:34 AM Hospital Day - 5 HPI/Subjective: Intubated, sedated appears to be comfortable on the ventilator Active Hospital Problem List Active Hospital Problems Diagnosis Date Noted Intentional drug overdose (HCC) [T50.902A] 10/03/2019 Drug overdose, multiple drugs, accidental or unintentional, initial encounter [T50.911A] 10/03/2019 height is 5' 9" (1.753 m) and weight is 270 lb [...] IV Piggyback:962] Out: 2460 [Urine:2460] Date 10/08/19 0000 - 10/08/19 2359 Shift 6080-7258 0605-4473 4633-7941 24 Hour Total INTAKE I.V.(mL/kg) 316(2.6) 316(2.6) [...] dexmedetomidine (PRECEDEX) IV infusion 1.3 mcg/kg/hr (10/08/19 0448) chlorhexidine 15 mL Mouth/Throat BID ampicillin-sulbactam 3 g Intravenous Q6H sodium chloride flush 10 mL Intravenous 2 times per day enoxaparin 40 mg Subcutaneous Daily famotidine (PEPCID) injection 20 mg Intravenous BID IV Diet/Nutrition DIET TUBE FEED CONTINUOUS/CYCLIC NPO; STANDARD WITHOUT FIBER; Orogastric; Continuous; 20; 55 Exam VITALS height is 5' 9" (1.753 m) and weight is 270 lb [...] (37.3 C) (Axillary) Resp 25 Ht 5' 9" (1.753 m) Wt 270 lb (122.5 kg) SpO2 97% BMI 39.87 kg/m I/O:24HR INTAKE/OUTPUT: Intake/Output Summary (Last 24 hours) at 10/07/2019 1325 Last data filed at 10/07/2019 1200 Gross per 24 hour Intake 6248.18 ml Output 1265 ml Net 4983.18 ml 10/05 07 - 10/06 0700 In: 5622.2 [I.V.:4936.2] Out: 900 [Urine:900] CVP: [...] SAT;PEEP > 10 cm H2O * Amada Ching, JENN - 10/06/2019 12:30 PM EDT Bronchoscopy performed at bedside with Judy Lincoln with respiratory at bedside Tolerated well medicated per physician order specimen obtained report given to Carmine barajas in no acute distress * Dulce Maria Chawla, RD, LD - 10/06/2019 11:21 AM EDT Nutrition [...] Fluid Accumulation-Mild fluid accumulation, Extremities(+2 ble) 6. Jewelry Appraiser Strength-Not measured Nutrition Risk Level: High Nutrient Needs: Estimated Daily Total Kcal: 7832-2961 Estimated Daily Protein (g): 79-132 Estimated Daily [...] wbc 11.6,alb 2.8, ca 7.8, corrected ca8.52 n,khijuxke114, jacinto 13:+2 ble, last bm Wound Type: Multiple(healing scabs) Current Nutrition Therapies: Oral Diet Orders: NPO Oral Diet intake: NPO Oral Nutrition Supplement (ONS) Orders: None ONS intake: NPO Anthropometric Measures: Ht: 5' 9" (175.3 cm) Current Body Wt: 270 lb (122.5 kg)( 10/02 bedscale) Admission Body Wt: Usual Body Wt: % Weight Change: , was 150 lbs in 2015; 10/2018 was 240 lbs. incr 30 lbs in 11 mo? [place] Body Wt: 145 lb (65.8 kg), % [place] Body 186 Adjusted Body Wt: , body [...] (37.1 C) (Oral) Resp 22 Ht 5' 9" (1.753 m) Wt 270 lb (122.5 kg) SpO2 94% BMI 39.87 kg/m I/O:24HR INTAKE/OUTPUT: Intake/Output Summary (Last 24 hours) at 10/06/2019626 Last data filed at 10/06/2019 0000 Gross per 24 hour Intake 1202.64 ml Output 800 ml Net 402.64 ml 10/04 0701 - 10/05 0700 In: 1102.6 [I.V.:882.6] Out: [...] 31 minutes so far today. 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 Patient shows signs of agitation and [...] (37.6 C) (Oral) Resp 24 Ht 5' 9" (1.753 m) Comment: per Steve estimate - pt is vented Wt 270 lb (122.5 kg) SpO2 99% BMI 39.87 kg/m I/O:24HR INTAKE/OUTPUT: Intake/Output Summary (Last 24 hours) at 10/05/2019 0630 Last data filed at 10/05/2019 0607 Gross per 24 hour Intake 3129.65 ml Output 1725 ml Net 1404.65 ml 10/03 07 - 10/04 0700 In: 3129.7 [I.V.:1869.7] Out: [...] (37.7 C) (Oral) Resp 21 Ht 5' 9" (1.753 m) Comment: per Steve estimate - pt is vented Wt 270 lb (122.5 kg) SpO2 98% BMI 39.87 kg/m I/O:24HR INTAKE/OUTPUT: Intake/Output Summary (Last 24 hours) at 10/04/2019 0648 Last data filed at 10/04/2019 0612 Gross per 24 hour Intake 2902.83 ml Output 1575 ml Net 1327.83 ml 10/02 07 - 10/03 07 In: 2902.8 [I.V.:1342.8] Out: 1575 [Urine:1425] CVP: [...] RCP - 10/04/2019 5:07 AM EDT 10/04/19 0507 Spontaneous Breathing Trial (SBT) RT Doc Contraindications [...] patient did indeed make a request to [employer] restricting future information releases. Spoke with social service on-call, she will review the chart and get back with the care team with anything of note. Jame Bocanegra - [employer] Supervisor documented in this encounter Assessments Diagnosis Infection [...] encounter Encounter for palliative care Aspiration pneumonia ([facility]) Pneumonitis due to inhalation of food or vomitus Hospital Course * Yamilka Yeboah, DAGOBERTO - ENERGY DERIVATIVES TRADER - 02/03/2020 12:05 PM EDT Discharge Summary [...] FTT. She was recently admitted DC from [facility] after tx for septic arthritis. She underwent arthrotomy/poly exchange and wasdischarged to SNF/HHC w/IV ATB back in November. In the [...] DISCHARGE MEDICATIONS: Charlie Nguyen Home Medication Instructions LULU:[id number] Printed on:02/03/20 6943 Medication Information apixaban (ELIQUIS) 5 MG TABS [...] Complexity: follow up within 7-14 calendar days (02128) [x] Severe Complexity: follow up within 7 calendar days (92284) FOLLOW UP TESTING, PENDING RESULTS OR REFERRALS AT TRANSITIONAL CARE VISIT: [x] Yes [] No PENDING STUDIES: No DISPOSITION: SNF FACILITY/HOME CARE AGENCY NAME: [facility] Follow up with Moreno Oates INSTRUCTIONS [...] frame. DISCHARGE TIME: > 30 minutes SIGNED: Yamilka Yeboah APRN - BENJAMIN 02/03/2020, 12:07 PM documented in this encounter* [...] over cough, mental status improved. Transferred to [facility] Consults: Neurology, Critical care and Psychiatry Discharge Instructions: Follow social distancing to prevent COVID 19 disease spread, wash hands frequently with either soap and water (preferred) or hand aircraft time clerk for atleast 20 seconds Diet: DIET GENERAL; Dental Soft Dietary Nutrition Supplements: Low Calorie High Protein Supplement Activity: as tolerated Recommended Outpatient Tests: Disposition: Patient discharged in stable condition to LTAC. Greater than 30 minutes spent discharging the patient and coming up with patient discharge plan. Vitals: BP 116/78 Pulse 95 Temp 98 F (36.7 C) (Temporal) Resp 18 Ht 5' 9" (1.753 m) Wt 270 lb (122.5 kg) [...] Discharge Medications: Charlie Nguyen Home Medication Instructions LULU:[id number] Printed on:10/25/19 3930 Medication Information Acetaminophen-Aspirin Buffered (EXCEDRIN BACK & BODY) 250-250 MG TABS Take 2 tablets by mouth every 6 hours as needed amoxicillin-clavulanate (AUGMENTIN) 875-125 MG per tablet Take 1 tablet by mouth every 12 hours for 2 days Blood Pressure Monitoring (B-D ASSURE BPM/AUTO ARM CUFF) [facility] Use as directed to monitor BP metoprolol [...] soon as possible for a visit CM [facility] [place] [address] Complexity of Follow up: [] Moderate Complexity: follow up within 7-14 calendar days (63567) [x] Severe Complexity: follow up within 7 calendar days (65354) Follow up Testing, Pending results or Referrals [...] been spent in discharging the patient. Signed: @NC @ Division of Hospitalist Medicine Inpatient Medical Services 10/25/2019, 2:17 PM This report was created using the [employer] voice- activated system. Despiteprompt dictation and careful editorial review, there may be subtle contextual errors in this report, due to misrecognition of the spoken word. 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 Hypertension I10 Chronic nonintractable headache R51 Intentional drug overdose ([facility]) T50.902A Drug overdose, multiple drugs, accidental or unintentional, initial encounter T50.911A Acute respiratory failure with hypoxia ([facility]) J96.01 Unspecified mood (affective) disorder ([facility]) F39 Procedures: CVC, Intubation, CXR, Ct Cervical [...] by both psychiatry and internal medicine at [facility] in the [facility] under Dr. Solis on 10/18/2019. See [...] (37.2 C) (Temporal) Resp 16 Ht 5' 9" (1.753 m) Wt 270 lb (122.5 kg) [...] Discharge Medications: Charlie Nguyen Home Medication Instructions LULU:[id number] Printed on:10/18/19 2002 Medication Information Acetaminophen-Aspirin Buffered (EXCEDRIN BACK & BODY) 250-250 MG TABS Take 2 tablets by mouth every 6 hours as needed Blood Pressure Monitoring (B-D ASSURE BPM/AUTO ARM CUFF) [facility] Use as directed to monitor BP metoprolol [...] Complexity: follow up within 7-14 calendar days (95626) [x] Severe Complexity: follow up within 7 calendar days (77922) Follow up Testing, Pending results or Referrals [...] appointment within the above time frame. Signed: Ruddy Corona MD Division of Hospitalist Medicine Inpatient Medical Services 10/18/2019, 4:43 PM [...] most local grocery stores, pharmacies, and chain [employer]-stores. ? If you have any questions about [...] Agent's Name Healthcare Agent's Phone Number 01/27/20 [phone] No, patient does not have an advance directive for healthcare treatment -- -- -- -- -- Admitting Physician: Tian Haro MD PCP: Moreno Oates Discharging Nurse: Delisa Guaman RN Discharging Hospital Unit/Room#: 255/2551 Discharging Unit Emergency Contact: Extended Emergency Contact Information Primary Emergency Contact: Vicente Driscoll [facility] Mobile Relation: Child Past Surgical History: Past Surgical History: Procedure Laterality Date BRONCHOSCOPY 10/06/2019 HYSTERECTOMY KNEE SURGERY Right 06/2016 TUBAL LIGATION Immunization History: Immunization History Administered Date(s) Administered Influenza Vaccine, unspecified formulation 02/15/2016 Influenza Virus Vaccine 03/24/2015 Tdap (Boostrix, Adacel) 12/06/2016 Active Problems: Patient Active Problem List Diagnosis Code Migraine G43.909 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 Hypertension I10 Chronic nonintractable headache R51 Intentional drug overdose (HCC) T50.902A Drug overdose, multiple drugs, accidental or unintentional, initial encounter T50.911A Acute respiratory failure with hypoxia ([facility]) J96.01 Unspecified mood (affective) disorder (HCC) F39 Palliative care encounter Z51.5 Aspiration pneumonia ([facility]) J69.0 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.53XA Generalized weakness R53.1 Benzodiazepine dependence ([facility]) F13.20 Isolation/Infection: Isolation No Isolation Patient Infection [...] Out 10/20/19 10/20/19 10/20/19 COVID-19 (Ordered) 10/20/19 Loly Godoy RN COVID-19 Rule Out 10/03/19 10/03/19 10/03/19 COVID-19 (Ordered) 10/04/19 Loly Godoy RN Nurse Assessment: Last Vital Signs: BP (!) 142/86 Pulse 63 Temp 97.9 F (36.6 C) (Temporal) Resp 18 Ht 5' 11" (1.803 m) Wt 238 lb 12.8 oz (108.3 kg) SpO2 93% BMI 33.31 kg/m Last documented pain score (0-10 scale): Pain Level: 3 Last Weight: Wt Readings from Last 1 Encounters: 02/01/20 238 lb 12.8 oz (108.3 kg) Mental Status: disoriented IV Access: - None Nursing Mobility/ADLs: Walking Dependent Transfer Dependent Bathing Dependent Dressing Dependent Toileting Dependent Feeding Dependent Extractor Operator Dependent Med Delivery whole Wound Care Documentation and Therapy: Wound 10/12/19 Perineum Medial Pressure ulcer, open wound/ skin tear (Active) Number of days: 111 Wound 10/22/19 Thigh Right;Medial;Anterior (Active) Number of days: 101 Wound 10/22/19 Thigh Anterior;Left;Medial (Active) Number of days: 101 Wound 01/27/20 Buttocks Anterior;Proximal;Right (Active) Wound Pressure Stage 2 01/31/202234 Dressing Status Other (Comment) 02/01/20831 Dressing/Treatment Other (comment) 02/01/20 08 Wound Cleansed Rinsed/Irrigated with saline 01/31/20 0801 Wound Assessment Slough;Red;Purple;Painful 02/01/20831 Drainage Amount Scant 02/01/20831 Drainage Description Serosanguinous 02/01/20 08 Birgit-wound Assessment Red 02/01/20831 Culture Taken No 01/31/202234 Number of days: 4 Elimination: Continence: Bowel: No Bladder: No Urinary Catheter: None Colostomy/Ileostomy/Ileal Conduit: No Date of Last BM: 02-01-2020 Intake/Output Summary (Last 24 hours) at 02/01/2020 1149 Last data filed at 01/31/20202234 Gross per 24 hour Intake 300 ml [...] are sent with patient): None RN SIGNATURE: BPatch HOUSE MOTHER/SOCIAL WORK SECTION Inpatient Status Date: 01/30/2020 Readmission Risk Assessment Score: Readmission Risk Risk of Unplanned Readmission: 33 Discharging to Facility/ Agency Name: [facility] Address:[address] [place] [address] Dialysis Facility (if applicable) Name: Address: Dialysis Schedule: Phone: Fax: Neonatal Specialist/Relay Telegrapher signature: PHYSICIAN SECTION Prognosis: Good Condition at Discharge: Stable Rehab Potential (if transferring to Rehab): Good Recommended Labs or Other Treatments After Discharge: N/A Physician Certification: I certify the above information and transfer of Charlie Nguyen is necessaryfor the continuing treatment of the diagnosis listed and that she requires Nursing Home Facilityfor greater 30 days. Update Admission H&P: No change in H&P PHYSICIAN SIGNATURE: * Attachments The following attachments cannot be sent through Care Everywhere. * Knee Pain or Injury (Angolan) documented in this encounter* Pharmacy* Fadumo Hernandez RPH - 10/04/2019 9:13 AM EDT * Discharge Instr - CLYDE* Gina Mendoza MD - 10/03/2019 4:12 PM EDT Continuity of Care Form Patient Name: Charlie Nguyen : 1955 Admit date: 10/03/2019 Discharge date: Code Status Order: Full Code Advance Directives: Admitting Physician: Rajendra Kim MD PCP: Moreno Oates Discharging Nurse: Discharging Hospital Unit/Room#: 066/6624 Discharging Unit Phone Number: Emergency Contact: Extended Emergency Contact Information Primary Emergency Contact: Vicente Driscoll [facility] Relation: Child Past Surgical History: Past Surgical [...] (117.9 kg) Mental Status: {IP PT MENTAL STATUS:} IV Access: {[facility] IV ACCESS:[id number]} Nursing Mobility/ADLs: Walking Dependent Transfer Dependent Bathing Dependent Dressing Dependent Toileting Dependent Feeding Dependent Extractor Operator Dependent Med Delivery whole Wound Care Documentation [...] Dental Soft Routes of Feeding: Oral Liquids: {Director Of Elementary Education liquid thickness:93231} Daily Fluid Restriction: no Last Modified Barium Swallow with Video (Video Swallowing Test): not done Treatments at the Time of Hospital Discharge: Respiratory Treatments: Oxygen Therapy: 4 LITERS [place] Ventilator: - No ventilator support Rehab Therapies: {THERAPEUTIC INTERVENTION:6613041285} Weight Bearing Status/Restrictions: No weight bearing restirctions Other Medical Equipment (for information only, NOT a DME order): {EQUIPMENT:791896047} Other Treatments: Patient's personal belongings (please select all that are sent with patient): None, Dentures {DESC; UPPER/LOWER/BOTH:44859} RN SIGNATURE: CASE MANAGEMENT/SOCIAL WORK SECTION Inpatient Status Date: Readmission Risk Assessment Score: Readmission Risk Risk of Unplanned Readmission: 14 Discharging to Facility/ Agency [facility] Address: [facility] ( [facility]) Dialysis Facility (if applicable) Name: Address: Dialysis Schedule: Phone: Fax: Neonatal Specialist/Relay Telegrapher signature: PHYSICIAN SECTION Prognosis: Good Condition at [...] in H&P PHYSICIAN SIGNATURE: * Additional Instructions* Ruddy Corona MD - 10/18/2019 Use of Multiple Drugs: Care Instructions Your Care Instructions You have had treatment to help your body get rid of a combination of any of these drugs: Prescription medicines Tevk-zyf-bregjmm medicines Alcohol Illegal drugs Taking some drugs [...] Where can you learn more? Go to [email or web address] and sign in to your [employer] (formerly [employer]) account. Enter B109 in the Search Health Information box to learn more about Use of Multiple Drugs: Care Instructions. If you do not have an account, please click on the "Sign Up Now" link. Current as of: January 19, 2019Content Version: 12.4 [employer]. Care instructions adapted under license by [employer]. If you have questions about a medical condition or this instruction, always ask your healthcare professional. [employer] disclaims any warranty or liability for your use of this information. documented in this encounter Chief Complaint and Reason for Visit Chief Complaint SENIOR CARE LABWORK SENIOR CARE LABWORK SENIOR CARE LABWORK SENIOR CARE LABWORK SENIOR CARE BLOOD WORK SENIOR CARE BLOOD WORK SENIOR CARE BLOOD WORK SENIOR CARE BLOOD WORK SENIOR CARE BLOOD WORK SENIOR CARE LAB WORK SENIOR CARE LAB WORK Chief Complaint SENIOR CARE LABWORK SENIOR CARE LABWORK SENIOR CARE LABWORK SENIOR CARE BLOOD WORK SENIOR CARE BLOOD WORK SENIOR CARE BLOOD WORK SENIOR CARE BLOOD WORK SENIOR CARE BLOOD WORK SENIOR CARE LAB WORK SENIOR CARE LAB WORK Chief Complaint SENIOR CARE BLOOD W ORK SENIOR CARE BLOOD WORK SENIOR CARE BLOOD WORK SENIOR CARE BLOOD WORK SENIOR CARE LAB WORK SENIOR CARE LAB WORK LABWORK Chief Complaint SENIOR CARE LAB WOR K SENIOR CARE LAB WORK LABWORK SENIOR CARE LABWORK LABWORK Chief Complaint SENIOR CARE LAB WOR K LABWORK SENIOR CARE LABWORK LABWORK LABWORK LABWORK Chief Complaint LABWORK SENIOR CARE LABWORK LABWORK LABWORK LABWORK SENIOR CARE LABWORK Chief Complaint LABWORK LABWORK SENIOR CARE LABWORK LABWORK Chief Complaint LABWORK SENIOR CARE LABWORK SENIOR CARE LAB WORK SENIOR CARE LABWORK SENIOR CARE LAB WORK SENIOR CARE LAB WOKR Chief Complaint SENIOR CARE LABWORK SENIOR CARE LAB WORK SENIOR CARE LABWORK SENIOR CARE LAB WORK SENIOR CARE LAB WOKR SENIOR CARE LAB WORK Chief Complaint SENIOR CARE LABWORK SENIOR CARE LAB WORK SENIOR CARE LABWORK SENIOR CARE LAB WORK SENIOR CARE LAB WOKR SENIOR CARE LAB WORK SENIOR CARE LAB WORK Chief Complaint SENIOR CARE LAB WOR K SENIOR CARE LAB WOKR SENIOR CARE LAB WORK SENIOR CARE LAB WORK SENIOR CARE LABWORK SENIOR CARE LAB WORK Chief Complaint SENIOR CARE LAB WOR K SENIOR CARE LAB WOKR SENIOR CARE LAB WORK SENIOR CARE LAB WORK SENIOR CARE LABWORK LABWORK SENIOR CARE LAB WORK Chief Complaint SENIOR CARE LAB WOK R SENIOR CARE LAB WORK SENIOR CARE LAB WORK SENIOR CARE LABWORK LABWORK SENIOR CARE LAB WORK SENIOR CARE LABWORK Chief Complaint SENIOR CARE LAB WOR K SENIOR CARE LAB WORK SENIOR CARE LABWORK LABWORK SENIOR CARE LAB WORK SENIOR CARE LABWORK LABWORK Chief Complaint LABWORK SENIOR CARE LAB WORK SENIOR CARE LABWORK LABWORK SENIOR CARE LABWORK SENIOR CARE LABWORK Chief Complaint SENIOR CARE LABWORK LABWORK SENIOR CARE LABWORK SENIOR CARE LABWORK SENIOR CARE LAB WORK SENIOR CARE LAB WORK Chief Complaint SENIOR CARE LABWORK SENIOR CARE LAB WORK SENIOR CARE LAB WORK SENIOR CARE LABWORK SENIOR CARE LABWORK Chief Complaint SENIOR CARE LABWORK SENIOR CARE LAB WORK SENIOR CARE LAB WORK SENIOR CARE LABWORK SENIOR CARE LABWORK SENIOR CARE LABWORK Chief Complaint SENIOR CARE LAB WOR K SENIOR CARE LAB WORK SENIOR CARE LABWORK SENIOR CARE LABWORK SENIOR CARE LABWORK LABWORK SENIOR CARE LABWORK Chief Complaint SENIOR CARE LABWORK SENIOR CARE LABWORK SENIOR CARE LABWORK LABWORK SENIOR CARE LABWORK LABWORK Chief Complaint LABWORK SENIOR CARE LABWORK LABWORK LABWORK LABWORK Chief Complaint LABWORK LABWORK LABWORK LABWORK Chief Complaint Admit Date LABWORK May 11, 2024 5:00am LABWORK July 04, 2024 5 :00am SENIOR CARE LAB WORK July 12 5:00am LABWORK August 10, 2024 5:0 0am Reason for Referral Specialty Diagnoses / Procedures Referred By Andrea t Referred To Contact CT IMAGING Diagnoses Pain due to internal orthopedic prosthetic devices, implants and grafts, initial encounter (HCC) Procedures CT KNEE WO IVCON LT CT LOWER EXTREMITY W/O CONTRAST MATERIAL Debbie Batista PA-C [address] [place] [address] Ct Imaging Referral ID Status Reason Start Date Expiration Date V isits Requested Visits Authorized [id number] Closed Auto-Generate d Referral 06/09/2022 05/31/2023 1 1 Additional Source Comments INFORMATION SOURCE (unrecogn ized section and content) DATE CREATED AUTHOR 11/06/2018 [facility] [place] DATE CREATED AUTHOR AUTHOR'S ORGANIZ ATION 12/22/2019 [facility] DATE CREATED AUTHOR AUTHOR'S ORGANIZ ATION 01/12/2021 [facility] DATE CREATED AUTHOR AUTHOR'S ORGANIZ ATION 03/01/2021 [facility] DATE CREATED AUTHOR AUTHOR'S ORGANIZ ATION 03/24/2022 [facility] DATE CREATED AUTHOR AUTHOR'S ORGANIZ ATION 06/16/2022 [facility] DATE CREATED AUTHOR AUTHOR'S ORGANIZ ATION 01/23/2023 [facility] DATE CREATED AUTHOR AUTHOR'S ORGANIZ ATION 07/19/2024 [facility] DATE CREATED AUTHOR AUTHOR'S ORGANIZ ATION 10/26/2024 [facility] DATE CREATED AUTHOR AUTHOR'S ORGANIZ ATION 11/20/2024 [facility] Reason for Visit (unrecogniz ed section and content) Reason Comments Joint Swelling Pt was sent in from [facility] for ortho consult to rule out septic knee. Pt states she had been taking antibiotics for her knee and "thought everything was fine and then they sent me here." Reason Comments Failure To Thrive Incontinence Reason [...] pharmacy Reason Comments Outside Lab Results from [facility] Reason Comments Orders request for sign [...] Refill Request Reason Comments Outside Lab Results [facility] Reason Comments Orders Controlled medicatio n request from [facility] Reason Comments Orders Pharmacy Recommendat ion [facility] Reason Comments Orders prescription request Reason Comments Orders Medication [facility] [place] Reason Comments Refill Request [facility] Reason Comments Orders [facility] Reason Comments Refill Request Future fill from the pharmacy Reason Comments Orders [facility] [place]/ [facility] Reason Comments Diagnositic mammogram and US orders Reason Onset Date Comments Opened In Error 03/18/2022 Reason Comments Orders Mammogram orders [facility] Reason Comments medication orders [facility] Reason Comments Medication Request [facility] pharmacy Oxycodone/apap Reason Comments Outside Labs Results [facility] Reason Comments Orders [facility] Reason Onset Date Comments Refill Request 06/25/2022 Reason Comments Patient Update [facility] 07/05/22 Reason Comments Outside Lab Results [facility] 07/14/22 Reason Onset Date Comments Refill Request 07/21/2022 Reason Comments Orders Reason Onset Date Comments Refill Request 07/29/2022 Reason Comments Received Outside Medical Records [facility] Developmental Disabilities Specialty Diagnoses / Procedures Referred By Contact Referred To Contact [facility] Diagnoses Follow up CT scan left knee Procedures est patient Debbie Batista PA-C [address] [place] [address] [facility] [address] [place] [address] Referral ID Status Reason Start Date Expiration Date Visits Requested Visits Authorized [id number] Pending Review OON/Self Pay Override 07/21/2022 01/17/2023 1 1 Reason Comments Medication Request [facility] Pharmacy Ox ycodone apap 5-325 mg 1 tab every 6 hours Reason Comments Medication Request [facility] Reason Comments Medication Request [facility]) Reason Comments Clinical Symptoms Reason Comments Received Outside Medical Records [facility] ([facility]) Labs Reason Comments Received Outside Medical Records [facility] portable [facility] service [facility] Chest x-ray 11/04/2022 Reason Comments Leg Swelling [...] hours. Reason Comments Received Outside Medical Records [facility] Vascular Surgery 12/15/22 Reason Comments Nurse Triage Call Reason Comments Received Outside Medical Records [facility] ([facility]) Labs 12/30/2022 Reason Onset Date Comments Refill Request 01/01/2023 Reason Comments Received Outside Medical Records Lab res ults from [facility]/ [facility] Lab Reason Onset Date Comments Refill Request 01/13/2023 Reason Comments Received Outside Medical Records [facility] Lower extremity venous duplex 01/21/2023 Reason Comments Medication Request Reason Comments Received Outside Medical Records Lab res ults 02/09/23 [facility] Reason Comments Received Outside Medical Records [facility] ([facility]) Labs 04/06/2023 Reason Comments Received Outside Medical Records [facility] ([facility]) Labs 05/11/2023 Reason Onset Date Comments Refill Request 07/30/2023 Reason Onset Date Comments Refill Request 07/31/2023 Reason Comments Outside Labs Results [facility]/ [facility] Reason Comments Received Outside Medical Records [facility] re Order to increase Zofran from 4 mg to 8 mg Q8 hr prn Reason Onset Date Comments Refill Request 09/25/2023 Reason Onset Date Comments Refill Request 10/07/2023 Reason Comments Outside Lab Results [facility] 10/12/23 Reason Onset Date Comments Refill Request 10/27/2023 Reason Comments Received Outside Medical Records [facility] Labs 11/09/2023 Reason Onset Date Comments Refill Request 12/30/2023 Reason Onset Date Comments Refill Request 01/27/2024 Reason Comments Radio Gen RMP Specialty Diagnoses / Procedures Referred By Contac t Referred To Contact XR IMAGING Diagnoses Status post total left knee replacement Procedures XR KNEE POST OP 3V AP/LAT/MERCHANT LEFT RADIOLOGIC EXAMINATION KNEE 3 VIEWS Debbie Batista, BHAVNA [address] [place] [address] [place] [id number] Referral ID Status Reason Start Date Expiration Date V isits Requested Visits Authorized [id number] Closed Auto-Generated Referral Financial Clearance Not Required 05/21/2022 06/20/2023 1 1 Reason Onset Date Comments Refill Request 02/26/2024 Reason Onset Date Comments Opened In Error 02/29/2024 Reason Comments Orders [facility] Reason Onset Date Comments Refill Request 03/24/2024 Reason Onset Date Comments Refill Request 03/25/2024 Reason Onset Date Comments Refill Request 03/31/2024 Reason Comments Received Outside Medical Records [facility] Labs 04/11/2024 Reason Onset Date Comments Refill Request 04/22/2024 Reason Onset Date Comments Refill Request 04/21/2024 Reason Onset Date Comments Refill Request 05/23/2024 Reason Onset Date Comments Refill Request 06/23/2024 Reason Comments Received Outside Medical Records [facility] ([facility]) Labs 07/12/2024 Reason Onset Date Comments Refill Request 07/22/2024 Reason Onset Date Comments Refill Request 08/18/2024 Reason Onset Date Comments Refill Request 09/16/2024 Reason Onset Date Comments Refill Request 10/14/2024 Reason Onset Date Comments Refill Request 11/10/2024 Reason Onset Date Comments Refill Request 11/18/2024 Reason Comments Headache Scheduled Active and Recently Administ ered Medications (unrecognized section and content) Medication Order 12/17/2020 12/18/2020 12/19/2020 clindamycin (CLEOCIN) 600 mg in dextrose 5 % 50 mL IVPB (COMPLETED) 600 mg, Intravenous, ONCE, 1 dose, On Thu12/18/20 at 2246 2318 (New Bag - Provider: Nathaly Miller, RN)2348 (Stopped - Provider: Serenity Coyne, JENN) oxyCODONE-acetaminophen (PERCOCET) 5-325 MG per tablet 1 tablet (COMPLETED) 1 tablet, Oral, ONCE, On Thu12/18/20 at 2235, For 1 dose, Maximum dose of acetaminophen is 4000 mg from all sources in 24 hours. 2318 (Given - Provider: Nathaly Miller, JENN) sodium chloride flush 0.9 % injection 3 [...] 4 mg, Intravenous, ONCE, On 01/05/21 at 211, For 1 dose, If oral and IV narcotics ordered, use oral first and only use IV if oral is ineffective or cannot take oral. Do Not give oral and IV within 1 hour of each other unless specifically ordered. 2227 (Given - Provider: Delmy Lawson RN) ondansetron (ZOFRAN) injection 4 mg (COMPLETED) 4 mg, Intravenous, ONCE, On 01/05/21 at 211, For 1 dose 2227 (Given - Provider: Delym Lawson RN) oxyCODONE-acetaminophen (PERCOCET) 5-325 MG per tablet 1 tablet 1 tablet, Oral, ONCE, On 01/05/21 at 2244, For 1 dose, Maximum dose of acetaminophen is 4000 mg from all sources in 24 hours. 2246 (Not Given - Provider: Delmy Lawson RN - Reason: Other - Comment: Not to be given per Dr. Hudson.) piperacillin-tazobactam (ZOSYN) 4500 mg in dextrose 100 mL IVPB (premix) (COMPLETED) 4,500 mg, Intravenous, ONCE, 1 dose, On 01/05/21 at 1915 1931 (New Bag - Provider: Chantal Walton, JENN)2239 (Stopped - Provider: Delmy Lawson RN) sodium chloride flush 0.9 % injection [...] Walton RN) 0209 (Stopped - Provider: Delmy Lawson RN) PRN Medication Order 01/04/2021 01/05/2021 01/06/2021 [...] or prosecute any alcohol or drug abuse patient.[facility] CenterIn the event this information is protected by the Federal Confidentiality of Alcohol and Drug Abuse Patient Records regulations: The Federal rules restrict any use of the information to criminally investigate or prosecute any alcohol or drug abuse patient.[facility] CenterIn the event this information is protected by the Federal Confidentiality of Alcohol and Drug Abuse Patient Records regulations: The Federal rules restrict any use of the information to criminally investigate or prosecute any alcohol or drug abuse patient.[facility] CenterIn the event this information is protected by the Federal Confidentiality of Alcohol and Drug Abuse Patient Records regulations: The Federal rules restrict any use of the information to criminally investigate or prosecute any alcohol or drug abuse patient.[facility] CenterIn the event this information is protected by the Federal Confidentiality of Alcohol and Drug Abuse Patient Records regulations: The Federal rules restrict any use of the information to criminally investigate or prosecute any alcohol or drug abuse patient.[facility] CenterIn the event this information is protected by the Federal Confidentiality of Alcohol and Drug Abuse Patient Records regulations: The Federal rules restrict any use of the information to criminally investigate or prosecute any alcohol or drug abuse patient.[facility] CenterIn the event this information is protected by the Federal Confidentiality of Alcohol and Drug Abuse Patient Records regulations: The Federal rules restrict any use of the information to criminally investigate or prosecute any alcohol or drug abuse patient.[facility] CenterIn the event this information is protected by the Federal Confidentiality of Alcohol and Drug Abuse Patient Records regulations: The Federal rules restrict any use of the information to criminally investigate or prosecute any alcohol or drug abuse patient.[facility] CenterIn the event this information is protected by the Federal Confidentiality of Alcohol and Drug Abuse Patient Records regulations: The Federal rules restrict any use of the information to criminally investigate or prosecute any alcohol or drug abuse patient.[facility] CenterIn the event this information is protected by the Federal Confidentiality of Alcohol and Drug Abuse Patient Records regulations: The Federal rules restrict any use of the information to criminally investigate or prosecute any alcohol or drug abuse patient.[facility] CenterIn the event this information is protected by the Federal Confidentiality of Alcohol and Drug Abuse Patient Records regulations: The Federal rules restrict any use of the information to criminally investigate or prosecute any alcohol or drug abuse patient.[facility] CenterIn the event this information is protected by the Federal Confidentiality of Alcohol and Drug Abuse Patient Records regulations: The Federal rules restrict any use of the information to criminally investigate or prosecute any alcohol or drug abuse patient.[facility] CenterIn the event this information is protected by the Federal Confidentiality of Alcohol and Drug Abuse Patient Records regulations: The Federal rules restrict any use of the information to criminally investigate or prosecute any alcohol or drug abuse patient.[facility] CenterIn the event this information is protected by the Federal Confidentiality of Alcohol and Drug Abuse Patient Records regulations: The Federal rules restrict any use of the information to criminally investigate or prosecute any alcohol or drug abuse patient.[facility] CenterIn the event this information is protected by the Federal Confidentiality of Alcohol and Drug Abuse Patient Records regulations: The Federal rules restrict any use of the information to criminally investigate or prosecute any alcohol or drug abuse patient.[facility] CenterIn the event this information is protected by the Federal Confidentiality of Alcohol and Drug Abuse Patient Records regulations: The Federal rules restrict any use of the information to criminally investigate or prosecute any alcohol or drug abuse patient.[facility] CenterIn the event this information is protected by the Federal Confidentiality of Alcohol and Drug Abuse Patient Records regulations: The Federal rules restrict any use of the information to criminally investigate or prosecute any alcohol or drug abuse patient.[facility] CenterIn the event this information is protected by the Federal Confidentiality of Alcohol and Drug Abuse Patient Records regulations: The Federal rules restrict any use of the information to criminally investigate or prosecute any alcohol or drug abuse patient.[facility] CenterIn the event this information is protected by the Federal Confidentiality of Alcohol and Drug Abuse Patient Records regulations: The Federal rules restrict any use of the information to criminally investigate or prosecute any alcohol or drug abuse patient.[facility] CenterIn the event this information is protected by the Federal Confidentiality of Alcohol and Drug Abuse Patient Records regulations: The Federal rules restrict any use of the information to criminally investigate or prosecute any alcohol or drug abuse patient.[facility] CenterIn the event this information is protected by the Federal Confidentiality of Alcohol and Drug Abuse Patient Records regulations: The Federal rules restrict any use of the information to criminally investigate or prosecute any alcohol or drug abuse patient.[facility] CenterIn the event this information is protected by the Federal Confidentiality of Alcohol and Drug Abuse Patient Records regulations: The Federal rules restrict any use of the information to criminally investigate or prosecute any alcohol or drug abuse patient.[facility] CenterIn the event this information is protected by the Federal Confidentiality of Alcohol and Drug Abuse Patient Records regulations: The Federal rules restrict any use of the information to criminally investigate or prosecute any alcohol or drug abuse patient.[facility] CenterIn the event this information is protected by the Federal Confidentiality of Alcohol and Drug Abuse Patient Records regulations: The Federal rules restrict any use of the information to criminally investigate or prosecute any alcohol or drug abuse patient.[facility] CenterIn the event this information is protected by the Federal Confidentiality of Alcohol and Drug Abuse Patient Records regulations: The Federal rules restrict any use of the information to criminally investigate or prosecute any alcohol or drug abuse patient.[facility] CenterIn the event this information is protected by the Federal Confidentiality of Alcohol and Drug Abuse Patient Records regulations: The Federal rules restrict any use of the information to criminally investigate or prosecute any alcohol or drug abuse patient.[facility] CenterIn the event this information is protected by the Federal Confidentiality of Alcohol and Drug Abuse Patient Records regulations: The Federal rules restrict any use of the information to criminally investigate or prosecute any alcohol or drug abuse patient.[facility] CenterIn the event this information is protected by the Federal Confidentiality of Alcohol and Drug Abuse Patient Records regulations: The Federal rules restrict any use of the information to criminally investigate or prosecute any alcohol or drug abuse patient.[facility] CenterIn the event this information is protected by the Federal Confidentiality of Alcohol and Drug Abuse Patient Records regulations: The Federal rules restrict any use of the information to criminally investigate or prosecute any alcohol or drug abuse patient.[facility] CenterIn the event this information is protected by the Federal Confidentiality of Alcohol and Drug Abuse Patient Records regulations: The Federal rules restrict any use of the information to criminally investigate or prosecute any alcohol or drug abuse patient.[facility] CenterIn the event this information is protected by the Federal Confidentiality of Alcohol and Drug Abuse Patient Records regulations: The Federal rules restrict any use of the information to criminally investigate or prosecute any alcohol or drug abuse patient.[facility] CenterIn the event this information is protected by the Federal Confidentiality of Alcohol and Drug Abuse Patient Records regulations: The Federal rules restrict any use of the information to criminally investigate or prosecute any alcohol or drug abuse patient.[facility] CenterIn the event this information is protected by the Federal Confidentiality of Alcohol and Drug Abuse Patient Records regulations: The Federal rules restrict any use of the information to criminally investigate or prosecute any alcohol or drug abuse patient.[facility] CenterIn the event this information is protected by the Federal Confidentiality of Alcohol and Drug Abuse Patient Records regulations: The Federal rules restrict any use of the information to criminally investigate or prosecute any alcohol or drug abuse patient.[facility] CenterIn the event this information is protected by the Federal Confidentiality of Alcohol and Drug Abuse Patient Records regulations: The Federal rules restrict any use of the information to criminally investigate or prosecute any alcohol or drug abuse patient.[facility] CenterIn the event this information is protected by the Federal Confidentiality of Alcohol and Drug Abuse Patient Records regulations: The Federal rules restrict any use of the information to criminally investigate or prosecute any alcohol or drug abuse patient.[facility] CenterIn the event this information is protected by the Federal Confidentiality of Alcohol and Drug Abuse Patient Records regulations: The Federal rules restrict any use of the information to criminally investigate or prosecute any alcohol or drug abuse patient.[facility] CenterIn the event this information is protected by the Federal Confidentiality of Alcohol and Drug Abuse Patient Records regulations: The Federal rules restrict any use of the information to criminally investigate or prosecute any alcohol or drug abuse patient.[facility] CenterIn the event this information is protected by the Federal Confidentiality of Alcohol and Drug Abuse Patient Records regulations: The Federal rules restrict any use of the information to criminally investigate or prosecute any alcohol or drug abuse patient.[facility] CenterIn the event this information is protected by the Federal Confidentiality of Alcohol and Drug Abuse Patient Records regulations: The Federal rules restrict any use of the information to criminally investigate or prosecute any alcohol or drug abuse patient.[facility] CenterIn the event this information is protected by the Federal Confidentiality of Alcohol and Drug Abuse Patient Records regulations: The Federal rules restrict any use of the information to criminally investigate or prosecute any alcohol or drug abuse patient.[facility] CenterIn the event this information is protected by the Federal Confidentiality of Alcohol and Drug Abuse Patient Records regulations: The Federal rules restrict any use of the information to criminally investigate or prosecute any alcohol or drug abuse patient.[facility] CenterIn the event this information is protected by the Federal Confidentiality of Alcohol and Drug Abuse Patient Records regulations: The Federal rules restrict any use of the information to criminally investigate or prosecute any alcohol or drug abuse patient.[facility] CenterIn the event this information is protected by the Federal Confidentiality of Alcohol and Drug Abuse Patient Records regulations: The Federal rules restrict any use of the information to criminally investigate or prosecute any alcohol or drug abuse patient.[facility] CenterIn the event this information is protected by the Federal Confidentiality of Alcohol and Drug Abuse Patient Records regulations: The Federal rules restrict any use of the information to criminally investigate or prosecute any alcohol or drug abuse patient.[facility] CenterIn the event this information is protected by the Federal Confidentiality of Alcohol and Drug Abuse Patient Records regulations: The Federal rules restrict any use of the information to criminally investigate or prosecute any alcohol or drug abuse patient.[facility] CenterIn the event this information is protected by the Federal Confidentiality of Alcohol and Drug Abuse Patient Records regulations: The Federal rules restrict any use of the information to criminally investigate or prosecute any alcohol or drug abuse patient.[facility] CenterIn the event this information is protected by the Federal Confidentiality of Alcohol and Drug Abuse Patient Records regulations: The Federal rules restrict any use of the information to criminally investigate or prosecute any alcohol or drug abuse patient.[facility] CenterIn the event this information is protected by the Federal Confidentiality of Alcohol and Drug Abuse Patient Records regulations: The Federal rules restrict any use of the information to criminally investigate or prosecute any alcohol or drug abuse patient.[facility] CenterIn the event this information is protected by the Federal Confidentiality of Alcohol and Drug Abuse Patient Records regulations: The Federal rules restrict any use of the information to criminally investigate or prosecute any alcohol or drug abuse patient.[facility] CenterIn the event this information is protected by the Federal Confidentiality of Alcohol and Drug Abuse Patient Records regulations: The Federal rules restrict any use of the information to criminally investigate or prosecute any alcohol or drug abuse patient.[facility] CenterIn the event this information is protected by the Federal Confidentiality of Alcohol and Drug Abuse Patient Records regulations: The Federal rules restrict any use of the information to criminally investigate or prosecute any alcohol or drug abuse patient.[facility] CenterIn the event this information is protected by the Federal Confidentiality of Alcohol and Drug Abuse Patient Records regulations: The Federal rules restrict any use of the information to criminally investigate or prosecute any alcohol or drug abuse patient.[facility] CenterIn the event this information is protected by the Federal Confidentiality of Alcohol and Drug Abuse Patient Records regulations: The Federal rules restrict any use of the information to criminally investigate or prosecute any alcohol or drug abuse patient.[facility] CenterIn the event this information is protected by the Federal Confidentiality of Alcohol and Drug Abuse Patient Records regulations: The Federal rules restrict any use of the information to criminally investigate or prosecute any alcohol or drug abuse patient.[facility] CenterIn the event this information is protected by the Federal Confidentiality of Alcohol and Drug Abuse Patient Records regulations: The Federal rules restrict any use of the information to criminally investigate or prosecute any alcohol or drug abuse patient.[facility] CenterIn the event this information is protected by the Federal Confidentiality of Alcohol and Drug Abuse Patient Records regulations: The Federal rules restrict any use of the information to criminally investigate or prosecute any alcohol or drug abuse patient.[facility] CenterIn the event this information is protected by the Federal Confidentiality of Alcohol and Drug Abuse Patient Records regulations: The Federal rules restrict any use of the information to criminally investigate or prosecute any alcohol or drug abuse patient.[facility] CenterIn the event this information is protected by the Federal Confidentiality of Alcohol and Drug Abuse Patient Records regulations: The Federal rules restrict any use of the information to criminally investigate or prosecute any alcohol or drug abuse patient.[facility] CenterIn the event this information is protected by the Federal Confidentiality of Alcohol and Drug Abuse Patient Records regulations: The Federal rules restrict any use of the information to criminally investigate or prosecute any alcohol or drug abuse patient.[facility] CenterIn the event this information is protected by the Federal Confidentiality of Alcohol and Drug Abuse Patient Records regulations: The Federal rules restrict any use of the information to criminally investigate or prosecute any alcohol or drug abuse patient.[facility] CenterIn the event this information is protected by the Federal Confidentiality of Alcohol and Drug Abuse Patient Records regulations: The Federal rules restrict any use of the information to criminally investigate or prosecute any alcohol or drug abuse patient.[facility] CenterIn the event this information is protected by the Federal Confidentiality of Alcohol and Drug Abuse Patient Records regulations: The Federal rules restrict any use of the information to criminally investigate or prosecute any alcohol or drug abuse patient.[facility] CenterIn the event this information is protected by the Federal Confidentiality of Alcohol and Drug Abuse Patient Records regulations: The Federal rules restrict any use of the information to criminally investigate or prosecute any alcohol or drug abuse patient.[facility] CenterIn the event this information is protected by the Federal Confidentiality of Alcohol and Drug Abuse Patient Records regulations: The Federal rules restrict any use of the information to criminally investigate or prosecute any alcohol or drug abuse patient.[facility] CenterIn the event this information is protected by the Federal Confidentiality of Alcohol and Drug Abuse Patient Records regulations: The Federal rules restrict any use of the information to criminally investigate or prosecute any alcohol or drug abuse patient.[facility] CenterIn the event this information is protected by the Federal Confidentiality of Alcohol and Drug Abuse Patient Records regulations: The Federal rules restrict any use of the information to criminally investigate or prosecute any alcohol or drug abuse patient.[facility] CenterIn the event this information is protected by the Federal Confidentiality of Alcohol and Drug Abuse Patient Records regulations: The Federal rules restrict any use of the information to criminally investigate or prosecute any alcohol or drug abuse patient.[facility] CenterIn the event this information is protected by the Federal Confidentiality of Alcohol and Drug Abuse Patient Records regulations: The Federal rules restrict any use of the information to criminally investigate or prosecute any alcohol or drug abuse patient.[facility] CenterIn the event this information is protected by the Federal Confidentiality of Alcohol and Drug Abuse Patient Records regulations: The Federal rules restrict any use of the information to criminally investigate or prosecute any alcohol or drug abuse patient.[facility] CenterIn the event this information is protected by the Federal Confidentiality of Alcohol and Drug Abuse Patient Records regulations: The Federal rules restrict any use of the information to criminally investigate or prosecute any alcohol or drug abuse patient.[facility] CenterIn the event this information is protected by the Federal Confidentiality of Alcohol and Drug Abuse Patient Records regulations: The Federal rules restrict any use of the information to criminally investigate or prosecute any alcohol or drug abuse patient.[facility] CenterIn the event this information is protected by the Federal Confidentiality of Alcohol and Drug Abuse Patient Records regulations: The Federal rules restrict any use of the information to criminally investigate or prosecute any alcohol or drug abuse patient.[facility] CenterIn the event this information is protected by the Federal Confidentiality of Alcohol and Drug Abuse Patient Records regulations: The Federal rules restrict any use of the information to criminally investigate or prosecute any alcohol or drug abuse patient.[facility] CenterIn the event this information is protected by the Federal Confidentiality of Alcohol and Drug Abuse Patient Records regulations: The Federal rules restrict any use of the information to criminally investigate or prosecute any alcohol or drug abuse patient.[facility] CenterIn the event this information is protected by the Federal Confidentiality of Alcohol and Drug Abuse Patient Records regulations: The Federal rules restrict any use of the information to criminally investigate or prosecute any alcohol or drug abuse patient.[facility] CenterIn the event this information is protected by the Federal Confidentiality of Alcohol and Drug Abuse Patient Records regulations: The Federal rules restrict any use of the information to criminally investigate or prosecute any alcohol or drug abuse patient.[facility] CenterIn the event this information is protected by the Federal Confidentiality of Alcohol and Drug Abuse Patient Records regulations: The Federal rules restrict any use of the information to criminally investigate or prosecute any alcohol or drug abuse patient.[facility] CenterIn the event this information is protected by the Federal Confidentiality of Alcohol and Drug Abuse Patient Records regulations: The Federal rules restrict any use of the information to criminally investigate or prosecute any alcohol or drug abuse patient.[facility] CenterIn the event this information is protected by the Federal Confidentiality of Alcohol and Drug Abuse Patient Records regulations: The Federal rules restrict any use of the information to criminally investigate or prosecute any alcohol or drug abuse patient.[facility] CenterIn the event this information is protected by the Federal Confidentiality of Alcohol and Drug Abuse Patient Records regulations: The Federal rules restrict any use of the information to criminally investigate or prosecute any alcohol or drug abuse patient.[facility] CenterIn the event this information is protected by the Federal Confidentiality of Alcohol and Drug Abuse Patient Records regulations: The Federal rules restrict any use of the information to criminally investigate or prosecute any alcohol or drug abuse patient.[facility] CenterIn the event this information is protected by the Federal Confidentiality of Alcohol and Drug Abuse Patient Records regulations: The Federal rules restrict any use of the information to criminally investigate or prosecute any alcohol or drug abuse patient.[facility] CenterIn the event this information is protected by the Federal Confidentiality of Alcohol and Drug Abuse Patient Records regulations: The Federal rules restrict any use of the information to criminally investigate or prosecute any alcohol or drug abuse patient.[facility] CenterIn the event this information is protected by the Federal Confidentiality of Alcohol and Drug Abuse Patient Records regulations: The Federal rules restrict any use of the information to criminally investigate or prosecute any alcohol or drug abuse patient.[facility] CenterIn the event this information is protected by the Federal Confidentiality of Alcohol and Drug Abuse Patient Records regulations: The Federal rules restrict any use of the information to criminally investigate or prosecute any alcohol or drug abuse patient.[facility] CenterIn the event this information is protected by the Federal Confidentiality of Alcohol and Drug Abuse Patient Records regulations: The Federal rules restrict any use of the information to criminally investigate or prosecute any alcohol or drug abuse patient.[facility] CenterIn the event this information is protected by the Federal Confidentiality of Alcohol and Drug Abuse Patient Records regulations: The Federal rules restrict any use of the information to criminally investigate or prosecute any alcohol or drug abuse patient.[facility] CenterIn the event this information is protected by the Federal Confidentiality of Alcohol and Drug Abuse Patient Records regulations: The Federal rules restrict any use of the information to criminally investigate or prosecute any alcohol or drug abuse patient.[facility] CenterIn the event this information is protected by the Federal Confidentiality of Alcohol and Drug Abuse Patient Records regulations: The Federal rules restrict any use of the information to criminally investigate or prosecute any alcohol or drug abuse patient.[facility] CenterIn the event this information is protected by the Federal Confidentiality of Alcohol and Drug Abuse Patient Records regulations: The Federal rules restrict any use of the information to criminally investigate or prosecute any alcohol or drug abuse patient.[facility] CenterIn the event this information is protected by the Federal Confidentiality of Alcohol and Drug Abuse Patient Records regulations: The Federal rules restrict any use of the information to criminally investigate or prosecute any alcohol or drug abuse patient.[facility] CenterIn the event this information is protected by the Federal Confidentiality of Alcohol and Drug Abuse Patient Records regulations: The Federal rules restrict any use of the information to criminally investigate or prosecute any alcohol or drug abuse patient.[facility] CenterIn the event this information is protected by the Federal Confidentiality of Alcohol and Drug Abuse Patient Records regulations: The Federal rules restrict any use of the information to criminally investigate or prosecute any alcohol or drug abuse patient.[facility] CenterIn the event this information is protected by the Federal Confidentiality of Alcohol and Drug Abuse Patient Records regulations: The Federal rules restrict any use of the information to criminally investigate or prosecute any alcohol or drug abuse patient.[facility] CenterIn the event this information is protected by the Federal Confidentiality of Alcohol and Drug Abuse Patient Records regulations: The Federal rules restrict any use of the information to criminally investigate or prosecute any alcohol or drug abuse patient.[facility] CenterIn the event this information is protected by the Federal Confidentiality of Alcohol and Drug Abuse Patient Records regulations: The Federal rules restrict any use of the information to criminally investigate or prosecute any alcohol or drug abuse patient.[facility] CenterIn the event this information is protected by the Federal Confidentiality of Alcohol and Drug Abuse Patient Records regulations: The Federal rules restrict any use of the information to criminally investigate or prosecute any alcohol or drug abuse patient.[facility] CenterIn the event this information is protected by the Federal Confidentiality of Alcohol and Drug Abuse Patient Records regulations: The Federal rules restrict any use of the information to criminally investigate or prosecute any alcohol or drug abuse patient.[facility] CenterIn the event this information is protected by the Federal Confidentiality of Alcohol and Drug Abuse Patient Records regulations: The Federal rules restrict any use of the information to criminally investigate or prosecute any alcohol or drug abuse patient.[facility] CenterIn the event this information is protected by the Federal Confidentiality of Alcohol and Drug Abuse Patient Records regulations: The Federal rules restrict any use of the information to criminally investigate or prosecute any alcohol or drug abuse patient.[facility] CenterIn the event this information is protected by the Federal Confidentiality of Alcohol and Drug Abuse Patient Records regulations: The Federal rules restrict any use of the information to criminally investigate or prosecute any alcohol or drug abuse patient.[facility] CenterIn the event this information is protected by the Federal Confidentiality of Alcohol and Drug Abuse Patient Records regulations: The Federal rules restrict any use of the information to criminally investigate or prosecute any alcohol or drug abuse patient.[facility] CenterIn the event this information is protected by the Federal Confidentiality of Alcohol and Drug Abuse Patient Records regulations: The Federal rules restrict any use of the information to criminally investigate or prosecute any alcohol or drug abuse patient.[facility] CenterIn the event this information is protected by the Federal Confidentiality of Alcohol and Drug Abuse Patient Records regulations: The Federal rules restrict any use of the information to criminally investigate or prosecute any alcohol or drug abuse patient.[facility] CenterIn the event this information is protected by the Federal Confidentiality of Alcohol and Drug Abuse Patient Records regulations: The Federal rules restrict any use of the information to criminally investigate or prosecute any alcohol or drug abuse patient.[facility] CenterIn the event this information is protected by the Federal Confidentiality of Alcohol and Drug Abuse Patient Records regulations: The Federal rules restrict any use of the information to criminally investigate or prosecute any alcohol or drug abuse patient.[facility] CenterIn the event this information is protected by the Federal Confidentiality of Alcohol and Drug Abuse Patient Records regulations: The Federal rules restrict any use of the information to criminally investigate or prosecute any alcohol or drug abuse patient.[facility] CenterIn the event this information is protected by the Federal Confidentiality of Alcohol and Drug Abuse Patient Records regulations: The Federal rules restrict any use of the information to criminally investigate or prosecute any alcohol or drug abuse patient.[facility] CenterIn the event this information is protected by the Federal Confidentiality of Alcohol and Drug Abuse Patient Records regulations: The Federal rules restrict any use of the information to criminally investigate or prosecute any alcohol or drug abuse patient.[facility] CenterIn the event this information is protected by the Federal Confidentiality of Alcohol and Drug Abuse Patient Records regulations: The Federal rules restrict any use of the information to criminally investigate or prosecute any alcohol or drug abuse patient.[facility] Care Teams (unrecognized sec tion and content) Team Status: Inactive Member Role Status Dates Ender RICKS MD Attending Provider Active Team Status: Active Member Role Status Dates Ender RICKS MD Attending Provider Active Team Status: Inactive Member Role Status Dates Ender RICKS MD Attending Provider, Referring Stuart venegas Active Editorial Writer Relationship Specialty Start Date End Date Moreno Oates MD [address] [place], [place] [id number] PCP - General Family Practice 02/13/16 Lamonte Weber [address] [place] [address] 11/17/06 Moreno Oates MD [address] [place] [address] [place] [address] Home Care Physician Family Practice 11/29/19 Moreno Oates MD [address] [place] [address] [place] [address] Referring Family Practice 11/29/19 Sanjana Tarango MD [address] [facility] [place] [address] Consulting Infectious Diseases 11/29/19 Editorial Writer Relationship Specialty Start Date End Date Moreno Oates MD [address] [place], [place] 137371 PCP - General Family Practice 02/13/16 Lamonte Weber [address] [place] [address] 11/17/06 Moreno Oates MD [address] [facility] [place] [address] Home Care Physician Family Practice 11/29/19 Moreno Oates MD [address] [facility] [place] [address] Referring Family Practice 11/29/19 Sanjana Tarango MD [address] [facility] [address] [place] [address] Consulting Infectious Diseases 11/29/19 Editorial Writer Relationship Specialty Start Date End Date Moreno Oates MD [address] [place], [place] [id number] PCP - General Family Practice 02/13/16 Lamonte Weber [address] [place] [address] 11/17/06 Moreno Oates MD [address] [facility] [place] [address] Home Care Physician Family Practice 11/29/19 Moreno Oates MD [address] [facility] [place] [address] Referring Family Practice 11/29/19 Sanjana Tarango MD [address] [facility] [address] [place] [address] Consulting Infectious Diseases 11/29/19 Editorial Writer Relationship Specialty Start Date End Date Moreno Oates MD [address] [place] [address] PCP - General Family Practice 02/13/16 Lamonte Weber [address] [place] [address] 11/17/06 Moreno Oates MD [address] [facility] [place] [address] Home Care Physician Family Practice 11/29/19 Moreno Oates MD [address] [facility] [place] [address] Referring Family Practice 11/29/19 Sanjana Tarango MD [address] [facility] [address] [place] [address] Consulting Infectious Diseases 11/29/19 Editorial Writer Relationship Specialty Start Date End Date Moreno Oates MD [address] [place], [place] [id number] PCP - General Family Practice 02/13/16 Lamonte Weber [address] [place] [address] 11/17/06 Moreno Oates MD [address] [facility] [place] [address] Home Care Physician Family Practice 11/29/19 Moreno Oates MD [address] [facility] [place] [address] Referring Family Practice 11/29/19 Sanjana Tarango MD [address] [facility] [address] [place] [address] Consulting Infectious Diseases 11/29/19 Editorial Writer Relationship Specialty Start Date End Date Moreno Oates MD [address] [place] [address] PCP - General Family Practice 02/13/16 Lamonte Weber [address] [place] [address] 11/17/06 Moreno Oates MD [address] [facility] [place] [address] Home Care Physician Family Practice 11/29/19 Moreno Oates MD [address] [facility] [place] [address] Referring Family Practice 11/29/19 Sanjana Tarango MD [address] [facility] [address] [place] [address] Consulting Infectious Diseases 11/29/19 Editorial Writer Relationship Specialty Start Date End Date Moreno Oates MD [address] [place], [place] [id number] PCP - General Family Practice 02/13/16 Lamonte Weber [address] [place] [address] 11/17/06 Moreno Oates MD [address] [facility] [place] [address] Home Care Physician Family Practice 11/29/19 Moreno Oates MD [address] [facility] [place] [address] Referring Family Practice 11/29/19 Sanjana Tarango MD [address] [place] [address] Consulting Infectious Diseases 11/29/19 Editorial Writer Relationship Specialty Start Date End Date Moreno Oates MD [address] [place] [address] PCP - General Family Practice 02/13/16 Lamonte Weber [address] [place] [address] 11/17/06 Moreno Oates MD [address] [facility] [place] [address] Home Care Physician Family Practice 11/29/19 Moreno Oates MD [address] [facility] [place] [address] Referring Family Practice 11/29/19 Sanjana Tarango MD [address] [facility] [place] [address] Consulting Infectious Diseases 11/29/19 Editorial Writer Relationship Specialty Start Date End Date Moreno Oates MD [address] [place] [address] PCP - General Family Practice 02/13/16 aLmonte Weber [address] [place] [address] 11/17/06 Moreno Oates MD [address] [facility] [place] [address] Home Care Physician Family Practice 11/29/19 Moreno Oates MD [address] [facility] [place] [address] Referring Family Practice 11/29/19 Sanjana Tarango MD [address] [facility] [address] [place] [address] Consulting Infectious Diseases 11/29/19 Editorial Writer Relationship Specialty Start Date End Date Moreno Oates MD [address] [place] [address] PCP - General Family Practice 02/13/16 Lamonte Weber [address] [place], [place] [id number] 11/17/06 Moreno Oates MD [address] [facility] [place] [address] Home Care Physician Family Practice 11/29/19 Moreno Oates MD [address] [facility] [place] [address] Referring Family Practice 11/29/19 Sanjana Tarango MD [address] [facility] [address]ER [address] [place] [address] Consulting Infectious Diseases 11/29/19 Editorial Writer Relationship Specialty Start Date End Date Moreno Oates MD [address] [place] [address] PCP - General Family Practice 02/13/16 Lamonte Weber [address] [place] [address] 11/17/06 Moreno Oates MD [address] [facility] [place] [address] Home Care Provider Family Practice 11/29/19 Moreno Oates MD [address] [facility] [place] [address] Referring Family Practice 11/29/19 Sanjana Tarango MD [address] [facility] [address] MERCER [address] [place] [address] Consulting Infectious Diseases 11/29/19 Editorial Writer Relationship Specialty Start Date End Date Moreno Oates MD [address] [place] [address] PCP - General Family Practice 02/13/16 Lamonte Weber [address] [place] [address] 11/17/06 Moreno Oates MD [address] [facility] [place] [address] Home Care Provider Family Practice 11/29/19 Moreno Oates MD [address] [facility] [place] [address] Referring Family Practice 11/29/19 Sanjana Tarango MD [address] [facility] [address] MERCER [address] [place] [address] Consulting Infectious Diseases 11/29/19 Editorial Writer Relationship Specialty Start Date End Date Moreno Oates MD [address] [place] [address] PCP - General Family Medicine 02/13/16 Lamonte Weber [address] [place] [address] 11/17/06 Moreno Oates MD [address] [facility] [place] [address] Home Care Provider Family Medicine 11/29/19 Moreno Oates MD [address] [facility] [place] [address] Referring Family Medicine 11/29/19 Sanjana Tarango MD [address] [facility] [address] [address] Consulting Infectious Diseases 11/29/19 Editorial Writer Relationship Specialty Start Date End Date Moreno Oates MD [address] [place] [address] PCP - General Family Medicine 02/13/16 Lamonte Weber [address] [place] [address] 11/17/06 Moreno Oates MD [address] [facility] [place] [address] Home Care Provider Family Medicine 11/29/19 Moreno Oates MD [address] [facility] [place] [address] Referring Family Medicine 11/29/19 Sanjana Tarango MD [address] [facility] [address] [address] Consulting Infectious Diseases 11/29/19 Editorial Writer Relationship Specialty Start Date End Date Moreno Oates MD [address] [place] [address] PCP - General Family Medicine 02/13/16 Lamnote Weber [address] [place] [address] 11/17/06 Moreno Oates MD [address] [facility] [place] [address] Home Care Provider Family Medicine 11/29/19 Moreno Oates MD [address] [facility] [place] [address] Referring Family Medicine 11/29/19 Sanjana Tarango MD [address] [facility] [address] [address] Consulting Infectious Diseases 11/29/19 Editorial Writer Relationship Specialty Start Date End Date Moreno Oates MD [address] [place] [address] PCP - General Family Medicine 02/13/16 Lamonte Weber [address] [place] [address] 11/17/06 Moreno Oates MD [address] [facility] [place] [address] Home Care Provider Family Medicine 11/29/19 Moreno Oates MD [address] [facility] [place] [address] Referring Family Medicine 11/29/19 Sanjana Tarango MD [address] [facility] [address] [address] Consulting Infectious Diseases 11/29/19 Editorial Writer Relationship Specialty Start Date End Date Moreno Oates MD [address] [place] [address] PCP - General Family Medicine 02/13/16 Lamonte Weber [address] [place] [address] 11/17/06 Moreno Oates MD [address] [facility] [place] [address] Home Care Provider Family Medicine 11/29/19 Moreno Oates MD [address] [facility] [place] [address] Referring Family Medicine 11/29/19 Sanjana Tarango MD [address] [facility] [address] [place] [address] Consulting Infectious Diseases 11/29/19 Editorial Writer Relationship Specialty Start Date End Date Moreno Oates MD [address] [place] [address] PCP - General Family Medicine 02/13/16 Lamonte Weber [address] [place] [address] 11/17/06 Moreno Oates MD [address] [facility] [place] [address] Home Care Provider Family Medicine 11/29/19 Moreno Oates MD [address] [facility] [place] [address] Referring Family Medicine 11/29/19 Sanjana Tarango MD [address] [facility] [address] [place] [address] Consulting Infectious Diseases 11/29/19 Editorial Writer Relationship Specialty Start Date End Date Moreno Oates MD [address] [place], [place] 409[address] PCP - General Family Medicine 02/13/16 Lamonte Weber [address] [place] [address] 11/17/06 Moreno Oates MD [address] [facility] [place] [address] Home Care Provider Family Medicine 11/29/19 Moreno Oates MD [address] [facility] [place] [address] Referring Family Medicine 11/29/19 Sanjana Tarango MD [address] [facility] [address] [place] [address] Consulting Infectious Diseases 11/29/19 Editorial Writer Relationship Specialty Start Date End Date Moreno Oates MD [address] [place] [address] PCP - General Family Medicine 02/13/16 Lamonte Weber [address] [place] [address] 11/17/06 Moreno Oates MD [address] [facility] [place] [address] Home Care Provider Family Medicine 11/29/19 Moreno Oates MD [address] [facility] [place] [address] Referring Family Medicine 11/29/19 Sanjana Tarango MD [address] [facility] [address] [address] Consulting Infectious Diseases 11/29/19 Editorial Writer Relationship Specialty Start Date End Date Moreno Oates MD [address] [place], [place] [id number] PCP - General Family Medicine 02/13/16 Lamonte Weber [address] [place] [address] 11/17/06 Moreno Oates MD [address] [facility] [place] [address] Home Care Provider Family Medicine 11/29/19 Moreno Oates MD [address] [facility] [place] [address] Referring Family Medicine 11/29/19 Sanjana Tarango MD [address] [facility] [address] [address] Consulting Infectious Diseases 11/29/19 Editorial Writer Relationship Specialty Start Date End Date Moreno Oates MD [address] [place] [address] PCP - General Family Medicine 02/13/16 Lamonte Weber [address] [place] [address] 11/17/06 Moreno Oates MD [address] [facility] [place] [address] Home Care Provider Family Medicine 11/29/19 Moreno Oates MD [address] [facility] [place] [address] Referring Family Medicine 11/29/19 Sanjana Tarango MD [address] [address] Consulting Infectious Diseases 11/29/19 Editorial Writer Relationship Specialty Start Date End Date Moreno Oates MD [address] [place], [place] 929391 PCP - General Family Medicine 02/13/16 Lamonte Weber [address] [place] [address] 11/17/06 Moreno Oates MD [address] [facility] [place] [address] Home Care Provider Family Medicine 11/29/19 Moreno Oates MD [address] [facility] [place] [address] Referring Family Medicine 11/29/19 Sanjana Tarango MD 36[address] [facility] [address] [address] Consulting Infectious Diseases 11/29/19 Editorial Writer Relationship Specialty Start Date End Date Moreno Oates MD [address] [place] [address] PCP - General Family Medicine 02/13/16 Lamonte Weber [address] [place] [address] 11/17/06 Moreno Oates MD [address] [facility] [place] [address] Home Care Provider Family Medicine 11/29/19 Moreno Oates MD [address] [facility] [place] [address] Referring Family Medicine 11/29/19 Sanjana Tarango MD 3600 [facility] [address] [address] Consulting Infectious Diseases 11/29/19 Editorial Writer Relationship Specialty Start Date End Date Moreno Oates MD [address] [place], [place] 87[address]81 PCP - General Family Medicine 02/13/16 Lamonte Webre [address] [place] [address] 11/17/06 Moreno Oates MD [address] [facility] [place] [address] Home Care Provider Family Medicine 11/29/19 Moreno Oates MD [address] [facility] [place] [address] Referring Family Medicine 11/29/19 Sanjana Tarango MD 3601 [facility] [address] [address] Consulting Infectious Diseases 11/29/19 Team Status: Inactive Member Role Status Dates Ender Oates MD Attending Provider Active Team Status: Inactive Member Role Status Dates Ender Oates MD Attending Provider, Referring Prov ider Active Team Status: Inactive Member Role Status Dates Chet Angel Attending Provider Active Editorial Writer Relationship Specialty Start Date End Date Moreno Oates MD [address] [place] [address] PCP - General Family Medicine 02/13/16 Lamonte Weber [address] [place] [address] 11/17/06 Moreno Oates MD [address] [facility] [place] [address] Home Care Provider Family Medicine 11/29/19 Moreno Oates MD [address] [facility] [place] [address] Referring Family Medicine 11/29/19 Sanjana Tarango MD [address] [facility] [address] [facility] [address] [place] [address] Consulting Infectious Diseases 11/29/19 Editorial Writer Relationship Specialty Start Date End Date Moreno Oates MD [address] [place] [address] PCP - General Family Medicine 02/13/16 Lamonte Weber [address] [place] [address] 11/17/06 Moreno Oates MD [address] [facility] [place] [address] Home Care Provider Family Medicine 11/29/19 Moreno Oates MD [address] [facility] [address] [place] [id number] [phone] Referring Family Medicine 11/29/19 [place] Tarango [place] [address] [facility] [address] [facility] [address] [place] [address] Consulting Infectious Diseases 11/29/19 Editorial Writer Relationship Specialty Start Date End Date Moreno Oates MD [address] [place] [address] PCP - General Family Medicine 02/13/16 Lamonte Weber [address] [place] [address] 11/17/06 Moreno Oates MD [address] [facility] [place] [address] Home Care Provider Family Medicine 11/29/19 Moreno Oates MD [address] [facility] [place] [address] Referring Family Medicine 11/29/19 Sanjana Tarango MD [address] [facility] [address] [facility]ER [address] [place] [address] Consulting Infectious Diseases 11/29/19 Editorial Writer Relationship Specialty Start Date End Date Moreno Oates MD [address] [place] [address] PCP - General Family Medicine 02/13/16 Lamonte Weber [address] [place] [address] 11/17/06 Moreno Oates MD [address] [facility] [place] [address] Home Care Provider Family Medicine 11/29/19 Moreno Oates MD [address] [facility] [address] [place], [place] [address] Referring Family Medicine 11/29/19 Sanjana Tarango MD [address] [facility] [address] [facility] [address] [place] [address] Consulting Infectious Diseases 11/29/19 Editorial Writer Relationship Specialty Start Date End Date Moreno Oates MD [address] [place] [address] PCP - General Family Medicine 02/13/16 Lamonte Weber [address] [place] [address] 11/17/06 Moreno Oates MD [address] [facility] [place] [address] Home Care Provider Family Medicine 11/29/19 Moreno Oates MD [address] [facility] [address] [place] [id number] Referring Family Medicine 11/29/19 Sanjana Tarango MD [address] [facility] [address] [facility] [address] [place] [address] Consulting Infectious Diseases 11/29/19 Editorial Writer Relationship Specialty Start Date End Date Moreno Oates MD [address] [place] [address] PCP - General Family Medicine 02/13/16 Lamonte Weber [address] [place] [address] 11/17/06 Moreno Oates MD [address] [facility] [address] [place] [id number] Home Care Provider Family Medicine 11/29/19 Moreno Oates MD [address] [facility] [address] [place] [id number] Referring Family Medicine 11/29/19 Sanjana Tarango MD [address] [facility] [address] [facility] [address] [place] [address] Consulting Infectious Diseases 11/29/19 Editorial Writer Relationship Specialty Start Date End Date Moreno Oates MD [address] [place] [address] PCP - General Family Medicine 02/13/16 [place] [address] 11/17/06 Moreno Oates MD [address] [facility] [place] [address] Home Care Provider Family Medicine 11/29/19 Moreno Oates MD [address] [facility] [place] [address] Referring Family Medicine 11/29/19 Sanjana Traango MD [address] [facility] [address] [facility] [address] [place] [address] Consulting Infectious Diseases 11/29/19 Editorial Writer Relationship Specialty Start Date End Date Moreno Oates 1 [place] [address] PCP - General 02/14/16 Editorial Writer Relationship Specialty Start Date End Date Moreno Oates MD [address] [place] [address] PCP - General Family Medicine 02/13/16 Lamonte Weber [address] [place] [address] 11/17/06 Moreno Oates MD [address] [facility] [place] [address] Home Care Provider Family Medicine 11/29/19 Moreno Oates MD [address] [facility] [place] [address] Referring Family Medicine 11/29/19 Sanjana Tarango MD [address] [facility] [address] [place] [address] Consulting Infectious Diseases 11/29/19 Editorial Writer Relationship Specialty Start Date End Date Moreno Oates MD [address] [place] [address] PCP - General Family Medicine 02/13/16 Lamonte Weber [address] [place] [address] 11/17/06 Moreno Oates MD [address] [facility] [place] [address] Home Care Provider Family Medicine 11/29/19 Moreno Oates MD [address] [facility] [place] [address] Referring Family Medicine 11/29/19 Sanjana Tarango MD [address] [facility] [address] [facility] [address] [place] [address] Consulting Infectious Diseases 11/29/19 Editorial Writer Relationship Specialty Start Date End Date Moreno Oates MD [address] [place] [address] PCP - General Family Medicine 02/13/16 Lamonte [address] [facility] [address] 11/17/06 Moreno Oates MD [address] [facility] [address] [place], [place] 999[address] Home Care Provider Family Medicine 11/29/19 Moreno Oates MD [address] [facility] [place] [address] Referring Family Medicine 11/29/19 Sanjana Tarango MD [address] [facility] [address] [facility] [address] [place] [address] Consulting Infectious Diseases 11/29/19 Editorial Writer Relationship Specialty Start Date End Date Moreno Oates MD [address] [place] [address] PCP - General Family Medicine 02/13/16 Lamonte Weber [address] [place] [address] 11/17/06 Moreno Oates MD [address] [facility] [place] [address] Home Care Provider Family Medicine 11/29/19 Moreno Oates MD [address] [facility] [place] [address] Referring Family Medicine 11/29/19 Sanjana Tarango MD [address] [facility] [address] [facility] [address] [place] [address] Consulting Infectious Diseases 11/29/19 Editorial Writer Relationship Specialty Start Date End Date Moreno Oates MD [address] [place] [address] PCP - General Family Medicine 02/13/16 Lamonte Weber [address] [facility], [place] [id number] 11/17/06 Moreno Oates MD [address] [facility] [address] [place], [place] 310451 Home Care Provider Family Medicine 11/29/19 Moreno Oates MD [address] [facility] [address] [place], [place] 069171 Referring Family Medicine 11/29/19 Sanjana Tarango MD [address] [facility] [address] [facility] [address] [place] [address] Consulting Infectious Diseases 11/29/19 Editorial Writer Relationship Specialty Start Date End Date Moreno Oates MD [address] [place] [address] PCP - General Family Medicine 02/13/16 Lamonte Weber [address] [place] [phone] 11/17/06 Moreno Oates MD [address] [facility] [place] [address] Home Care Provider Family Medicine 11/29/19 Moreno Oates MD [address] [facility] [place] [address] Referring Family Medicine 11/29/19 Sanjana Tarango MD [address] [facility] [address] [place] [address] Consulting Infectious Diseases 11/29/19 Editorial Writer Relationship Specialty Start Date End Date Moreno Oates MD [address] [place], [place] 818231 PCP - General Family Medicine 02/13/16 Lamonte Weber [address] [place] [address] 11/17/06 Moreno Oates MD [address] [facility] [place] [address] Home Care Provider Family Medicine 11/29/19 Moreno Oates MD [address] [facility] [place] [address] Referring Family Medicine 11/29/19 Sanjana Tarango MD [address] [facility] [address] [facility]ER [address] [place] [address] Consulting Infectious Diseases 11/29/19 Editorial Writer Relationship Specialty Start Date End Date Moreno Oates MD [address] [place] [address] PCP - General Family Medicine 02/13/16 Lamonte Weber [address] [place] [address] 11/17/06 Moreno Oates MD [address] [facility] [place] [address] Home Care Provider Family Medicine 11/29/19 Moreno Oates MD [address] [facility] [place] [address] Referring Family Medicine 11/29/19 Sanjana Tarango MD [address] [place] [facility] [address] [place] [address] Consulting Infectious Diseases 11/29/19 Editorial Writer Relationship Specialty Start Date End Date Moreno Oates MD 1740 [facility] [place] [address] PCP - General Family Medicine 02/13/16 Lamonte [address] [facility] [address] 11/17/06 Moreno Oates MD [address] [facility] [address] [place], [place] 266721 Home Care Provider Family Medicine 11/29/19 Moreno Oates MD [address] [facility] [place] [address] Referring Family Medicine 11/29/19 Sanjana Tarango MD [facility]9 [facility] [address] [address] Consulting Infectious Diseases 11/29/19 Editorial Writer Relationship Specialty Start Date End Date Moreno Oates MD [address] [place] [address] PCP - General Family Medicine 02/13/16 Lamonte Weber [address] [facility], [place] [address] 11/17/06 Moreno Oates MD [address] [facility] [place] [address] Home Care Provider Family Medicine 11/29/19 Moreno Oates MD [address] [facility] [place] [address] Referring Family Medicine 11/29/19 Sanjana Tarango MD [address] [facility] [address] [facility] [address] [place] [address] Consulting Infectious Diseases 11/29/19 Editorial Writer Relationship Specialty Start Date End Date Moreno Oates MD [address] [place] [address] PCP - General Family Medicine 02/13/16 Lamonte Weber [address] [place] [address] 11/17/06 Moreno Oates MD [address] [facility] [place] [address] Home Care Provider Family Medicine 11/29/19 Moreno Oates MD [address] [facility] [place] [address] Referring Family Medicine 11/29/19 Sanjana Tarango MD [address] [facility] [address] [facility] [address] [place], [place] [address] Consulting Infectious Diseases 11/29/19 Editorial Writer Relationship Specialty Start Date End Date Moreno Oates MD [address] [place] [address] PCP - General Family Medicine 02/13/16 Lamonte Weber [address] [place], [place] [id number] 11/17/06 Moreno Oates MD [address] [facility] [address] [place], [place] 961761 Home Care Provider Family Medicine 11/29/19 Moreno Oates MD [address] [facility] [place] [address] Referring Family Medicine 11/29/19 Sanjana Tarango MD [address] [facility] [address] [place] [address] Consulting Infectious Diseases 11/29/19 Editorial Writer Relationship Specialty Start Date End Date Moreno Oates MD [address] [place] [address] PCP - General Family Medicine 02/13/16 Lamonte Weber [address] [place] [address] 11/17/06 Moreno Oates MD [address] [facility] [place] [address] Home Care Provider Family Medicine 11/29/19 Moreno Oates MD [address] [facility] [place] [address] Referring Family Medicine 11/29/19 Sanjana Tarango MD [address] [place] [facility] [address] [place] [address] Consulting Infectious Diseases 11/29/19 Editorial Writer Relationship Specialty Start Date End Date Moreno Oates MD [address] [place] [address] PCP - General Family Medicine 02/13/16 Lamonte Weber [address] [place] [address] 11/17/06 Moreno Oates MD [address] [facility] [address] [place], [place] 063981 Home Care Provider Family Medicine 11/29/19 Moreno Oates MD [address] [facility] [address] [place], [place] 708081 Referring Family Medicine 11/29/19 Sanjana Tarango MD [address] [facility] [address] [facility] [address] [place] [address] Consulting Infectious Diseases 11/29/19 Editorial Writer Relationship Specialty Start Date End Date Moreno Oates MD [address] [place] [address] PCP - General Family Medicine 02/13/16 Lamonte Weber [address] [place] [address] 11/17/06 Moreno Oates MD [address] [facility] [address] [place], [place] 704131 Home Care Provider Family Medicine 11/29/19 Moreno Oates MD [address] [facility] [address] [place], [place] [address] Referring Family Medicine 11/29/19 Sanjana Tarango MD [address] [address] [place], [place] [address] Consulting Infectious Diseases 11/29/19 Editorial Writer Relationship Specialty Start Date End Date Moreno Oates MD [address] [place], [place] 573031 PCP - General Family Medicine 02/13/16 Lamonte Weber [address] [facility] [address] 11/17/06 Moreno Oates MD [address] [facility] [address] [place], [place] 457451 Home Care Provider Family Medicine 11/29/19 Moreno Oates MD [address] [facility] [address] [place], [place] 157441 Referring Family Medicine 11/29/19 Sanjana Tarango MD [address] [address] Consulting Infectious Diseases 11/29/19 Editorial Writer Relationship Specialty Start Date End Date Moreno Oates MD [address] [place], [place] 263741 PCP - General Family Medicine 02/13/16 Lamonte Weber [address] [facility] [address] 11/17/06 Moreno Oates MD [address] [facility] [place] [address] Home Care Provider Family Medicine 11/29/19 Moreno Oates MD [address] [facility] [place] [address] Referring Family Medicine 11/29/19 Sanjana Tarango MD [address] [facility] [address] [facility] [address] [place] [address] Consulting Infectious Diseases 11/29/19 Editorial Writer Relationship Specialty Start Date End Date Moreno Oates MD [address] [place] [address] PCP - General Family Medicine 02/13/16 Lamonte Weber [address] [facility], [place] [address] 11/17/06 Moreno Oates MD [address] [facility] [place] [address] Home Care Provider Family Medicine 11/29/19 Moreno Oates MD [address] [facility] [place] [address] Referring Family Medicine 11/29/19 Sanjana Tarango MD [address] [facility] [address] [facility] [address] [place] [address] Consulting Infectious Diseases 11/29/19 Editorial Writer Relationship Specialty Start Date End Date Moreno Oates MD [address] [place], [place] 588761 PCP - General Family Medicine 02/13/16 Lamonte Weber [address] [facility], [place] [address] 11/17/06 Moreno Oates MD [address] [facility] [place] [address] Home Care Provider Family Medicine 11/29/19 Moreno Oates MD [address] [facility] [place] [address] Referring Family Medicine 11/29/19 Sanjana Tarango MD [address] [facility] [address] [facility] [address] [place] [address] Consulting Infectious Diseases 11/29/19 Editorial Writer Relationship Specialty Start Date End Date Moreno Oates MD [address] [place] [address] PCP - General Family Medicine 02/13/16 Lamonte Weber [address] [place] [address] [phone] 11/17/06 Morneo Oates MD [address] [facility] [place] [address] Home Care Provider Family Medicine 11/29/19 Moreno Oates MD [address] [facility] [place] [address] Referring Family Medicine 11/29/19 Sanjana Tarango MD [facility] [address] [facility] [address] [place] [address] Consulting Infectious Diseases 11/29/19 Editorial Writer Relationship Specialty Start Date End Date Moreno Oates MD [address] [place], [place] 843331 PCP - General Family Medicine 02/13/16 Lamonte Weber [address] [place] [address] 11/17/06 Moreno Oates MD [address] [facility] [place] [address] Home Care Provider Family Medicine 11/29/19 Moreno Oates MD [address] [facility] [place] [address] Referring Family Medicine 11/29/19 Sanjana Tarango MD [address] [facility] [address] [facility] [address] [place] [address] Consulting Infectious Diseases 11/29/19 Editorial Writer Relationship Specialty Start Date End Date Moreno Oates MD [address] [place] [address] PCP - General Family Medicine 02/13/16 Lamonte Weber [address] [place] [address] 11/17/06 Moreno Oates MD [address] [facility] [place] [address] Home Care Provider Family Medicine 11/29/19 Moreno Oates MD [address] [facility] [address] [place], [place] 633351 Referring Family Medicine 11/29/19 Sanjana Tarango MD [address] [facility] [address] [facility] [address] [place] [address] Consulting Infectious Diseases 11/29/19 Editorial Writer Relationship Specialty Start Date End Date Moreno Oates MD [address] [place] [address] PCP - General Family Medicine 02/13/16 Lamonte Weber [address] [place] [address] 11/17/06 Moreno Oates MD [address] [facility] [address] [place], [place] 563471 Home Care Provider Family Medicine 11/29/19 Moreno Oates MD [address] [facility] [address] [place], [place] 214331 Referring Family Medicine 11/29/19 Sanjana Tarango MD 3609 [facility] [address] [address] Consulting Infectious Diseases 11/29/19 Editorial Writer Relationship Specialty Start Date End Date Moreno Oates MD [address] [place] [address] PCP - General Family Medicine 02/13/16 Lamonte Weber [address] [place] [address] 11/17/06 Moreno Oates MD [address] [facility] [address] [place], [place] 963911 Home Care Provider Family Medicine 11/29/19 Moreno Oates MD [address] [facility] [address] [place], [place] 236661 Referring Family Medicine 11/29/19 Sanjana Tarango MD [address] [facility] [address] [place] [address] Consulting Infectious Diseases 11/29/19 Editorial Writer Relationship Specialty Start Date End Date Moreno Oates MD [address] [place], [place] 915191 PCP - General Family Medicine 02/13/16 Lamonte Weber [address] [place] [place], [place] [id number] 11/17/06 Moreno Oates MD [address] [facility] [address] [place], [place] 648131 Home Care Provider Family Medicine 11/29/19 Moreno Oates MD [address] [facility] [address] [place], [place] 927761 Referring Family Medicine 11/29/19 Sanjana Tarango MD [address] [place] [facility] [address] [place] [address] Consulting Infectious Diseases 11/29/19 Carlos Mei APRN.ENERGY DERIVATIVES TRADER [address] [facility] [place] [address] Materials Planner Internal Medicine 05/08/24 Editorial Writer Relationship Specialty Start Date End Date Moreno Oates MD [address] [place] [address] PCP - General Family Medicine 02/13/16 Lamonte Weber [address] [facility] [place] [place] [address] 11/17/06 Moreno Oates MD [address] [facility] [address] [place], [place] [id number] Home Care Provider Family Medicine 11/29/19 Moreno Oates MD [address] [facility] [address] [place], [place] 42333281 Referring Family Medicine 11/29/19 Sanjana Tarango MD [address] [facility] [address] [facility] [address] [place] [address] Consulting Infectious Diseases 11/29/19 Carlos Mei APRN.ENERGY DERIVATIVES TRADER [address] [facility] [address] [place], [place] [phone] Materials Planner Internal Medicine 05/08/24 Editorial Writer Relationship Specialty Start Date End Date Moreno Oates MD [address] [place], [place] 302911 PCP - General Family Medicine 02/13/16 Lamonte Weber [address] [place] [address] [phone] 11/17/06 Moreno Oates MD [address] [facility] [address] [place], [place] 521551 Home Care Provider Family Medicine 11/29/19 Moreno Oates MD [address] [facility] [address] [place], [place] 738921 Referring Family Medicine 11/29/19 Sanjana Tarango MD [address] [place] [address] Consulting Infectious Diseases 11/29/19 Carlos Mei APRN.ENERGY DERIVATIVES TRADER [address] [facility] [address] [place], [place] [id number] Materials Planner Internal Medicine 05/08/24 Team Status: Inactive Member [...] August 10, 2024 End: August 10, 2024 Editorial Writer Relationship Specialty Start Date End Date Moreno Oates MD [address] [place] [address] PCP - General Family Medicine 02/13/16 Lamonte Weber [address] [place] [address] [phone] 11/17/06 Moreno Oates MD [address] [facility] [address] [place], [place] 34398281 Home Care Provider Family Medicine 11/29/19 Moreno Oates MD [address] [facility] [address] [place], [place] 78416281 Referring Family Medicine 11/29/19 Sanjana Tarango MD [address] [facility] [address] [facility] [address] [place] [address] Consulting Infectious Diseases 11/29/19 Carlos Mei APRN.ENERGY DERIVATIVES TRADER [address] [facility] [address] [place], [place] 829601 Materials Planner Internal Medicine 05/08/24 Editorial Writer Relationship Specialty Start Date End Date Moreno Oates MD 1740 [facility] [place] 000341 PCP - General Family Medicine 02/13/16 Lamonte Weber [address] [place] [address] 11/17/06 Moreno Oates MD [address] [place] [address] [address] [place], [place] 484911 Home Care Provider Family Medicine 11/29/19 Moreno Oates MD [address] [facility] [address] [place], [place] 563221 Referring Family Medicine 11/29/19 Sanjana Tarango MD [address] [facility] [address] [facility] [address] [place] [address] Consulting Infectious Diseases 11/29/19 Carlos Mei, DAGOBERTO.ENERGY DERIVATIVES TRADER [address] [facility] [address] [place], [place] [id number] Materials Planner Internal Medicine 05/08/24 Goals (unrecognized section and content) Goals may [...] BE BASED ON THE PRIMARY CLINICAL RECORDS. [employer] [facility]. provides no warranty or guarantee of the accuracy or completeness of information in this document.
[2024-12-09 08:06] LABS: Hematocrit 43.3 % (37-47); Hemoglobin 13.9 g/dL (12.0-15.0); Mean Corp Hgb Conc 32.1 g/dL (32-36); Mean Corpuscular Volume 100.9 fL (81-99); Mean Platelet Vol. 10.4 fl (6.2-12.0); Platelet Count 203 K/mm3 (150-450); RBC Distribution Width CV 15.0 % (11.6-14.6); RBC Distribution Width SD 55.8 fl (35.1-43.9); Red Blood Count 4.29 M/mm3 (4.2-5.4); White Blood Count 7.3 K/mm3 (4.4-11.0)
[2024-12-09 08:28] LABS: AST(SGOT) 33 U/L (<=31); Alanine Aminotransfer ALT/SGPT 22 U/L (<=34); Albumin, Serum 3.8 g/dL (3.4-4.8); Alkaline Phosphatase 89 U/L (35-104); Anion Gap 11 (5-15); BUN 21 mg/dL (4-19); BUN/Creat Ratio 25.9 RATIO (10-20); Calcium,Total 9.4 mg/dL (7.6-11.0); Carbon Dioxide 24.2 mmol/L (21.0-32.0); Chloride 102 mmol/L (98-108); Globulin 3.9 g/dL (2.2-4.2); Glucose 139 mg/dL (70-99); Potassium 4.6 mmol/L (3.3-5.1)
== END ==
LOC: OLS.ACW300 05:00
PROVIDERS: Visit Provider Family Medicine
DX: G35 Multiple sclerosis (principal); J44.9 Chronic obstructive pulmonary disease, unspecified; R53.1 Weakness
CPT/HCPCS: 36415; 80053; 85027

== ENCOUNTER → 2024-12-15 05:00 | Outpatient (REF) | payer MEDICARE, MEDICAID, SELFPAY ==
--- OUTSIDE RECORDS SUMMARY | 2024-12-15 03:46 | XMS RPT_ITS | CCD ---
Author Organization [facility] Care Team Providers Care Broadcast Technician Name Role Phone Moreno Oates Primary Care Provider Lamonte Weber Unavailable Moreno Oates MD Primary Care Provider Moreno Oates MD Unavailable Moreno Oates MD Unavailable Sukhdeep YEE, Sanjana Unavailable Lamonte Weber Unavailable Sukhdeep YEE, Sanjana Unavailable Lamonte Weber Unavailable [phone] Moreno Oates MD Primary Care Provider Moreno Oates MD Unavailable Moreno Oates MD Unavailable Sukhdeep YEE, Sanjana Unavailable Moreno Oates MD Unavailable Lamonte Weber Unavailable Moreno Oates MD Primary Care Provider Moreno Oates MD Unavailable Moreno Oates MD Unavailable Moreno Oates Referring Unavailable Moreno Oates Attending Unavailable Moreno Oates Primary Care Unavailable Moreno Oates Primary Care Unavailable Moreno Oates Referring Unavailable Moreno Oates Attending Unavailable Lamonte Weber Unavailable Gracie YEE, Moreno Gong Primary Care Provider Gracie YEE, Moreno R Unavailable Gracie YEE, Moreno R Unavailable Sukhdeep YEE, Sanjana Unavailable PROVIDER, UNKNOWN Referring Unavailable MORENO OATES Primary Care Unavailable Moreno Oates Primary Care Provider [phone] KENJI DO~[id number], KENJIJESSICA Rodríguez Attendi ng Unavailable KENJI DO~[id number], KENJIJESSICA PAGE A Admitti ng Unavailable MORENO OATES Primary Care Unavailable Gracie YEE, Moreno Gong Primary Care Provider [phone] Sigifredo ARENAS.TUNNEL HEADING SUPERVISOR, Carlos Unavailable Ender Oates MD Attending Provider Royer Maldonado Attending Provider UnavailMORENO German Primary Care Unavailable RED GUIDRY Admitting Unavailable RED GUIDRY Attending Unavailable Gracie RICKS, Ender Attending Unavailable Gracie RICKS, Ender Attending Unavailable Merary RICKS, Royer Attending Unavailable Merary RICKS, Royer Attending Unavailable Merary RICKS, Royer Attending Unavailable Gracie RICKS, Ender Attending Unavailable Gracie RICKS, Ender Attending Unavailable Gracie RICKS, Ender Attending Unavailable Merary RICKS, Royer Attending Unavailable Gracie RICKS, Ender Attending Unavailable Merary RICKS, Royer Attending Unavailable Gracie RICKS, Ender Attending Unavailable Allergies Allergy Classification Reported Allergen(s) [...] MINOPHEN] Drug Allergy 08-15-19 17 GI [place] (5 sources) Cephalexin Drug Allergy 12-12-19 15 [place] (5 sources) Nitrofurantoin Drug Allergy 12-12-19 15 [place], [place] (20 sources) gabapentin; Translations: [GABAPENTIN] Drug Allergy 10-08-19 19 GI [facility] Work Phone: (20 sources) NITROFURANTOIN, MACROCRYSTALS / Nitrofurantoin, Monohydrate; Translations: [NITROFURANTOIN MONOHYD/M-CRYST] Drug Allergy 02-13-20 16 [facility] (20 sources) Non-steroidal anti-inflammatory agent; Translations: [NSAIDS (NON-STEROIDAL ANTI-INFLAMMATORY DRUG)] Drug Intolerance 06-06-19 17 GI [facility] (20 sources) traMADol; Translations: [TRAMADOL] Drug Allergy 01-23-20 17 Contraindicati on-Medical Surgical [facility] (20 sources) Non-steroidal anti-inflammatory agent Drug Intolerance 06-06-19 17 GI [facility] (2 sources) Nitrofurantoin Drug Allergy 02-13-20 16 [facility] Medications Current Medications Medication Drug Class(es) Dates [...] above: Take 1 tablet by candido twice daily with meals. Calcium Carbonate (20 [...] 0 10/29/2021 11/28/2021 Active Start: 09-27-2021 End: 06-23-2022 take 1 tablet by mouth every twelve [...] four times daily. To back 100 g 10/08/2023 Active Comment on above: Apply 4 g to affecte d area four times daily. To back diphenhydrAMINE hydrochloride 25 mg oral tablet (1 source) Histamine-1 Receptor Antagonist Start: diphenhydrAMINE (BENADRYL) tablet 25 mg doxycycline hyclate 100 mg oral capsule (20 sources) Tetracycline-class Drug Start: End: take 1 capsule by mouth twice [...] candido twice daily. Take 1 capsule by [facility] twice daily for 7 days. 0.4 ml [...] Active Start: 10-16-2019 take 1 tablet by [facility] twice daily metoprolol tartrate (LOPRESSOR) [...] DERM CQ) 21 MG/24HR 1 patch nystatin 188814 unt/ml topical cream (20 sources) Polyene Antifungal [...] on above: Take 1 capsule by [address] [facility] once daily. ondansetron 8 mg oral tablet [...] above: Take 1 tablet by candido every 8 hours as needed for Nausea/Vomiting. [...] candido th once daily. polyethylene glycol 3350 06228 mg powder for oral solution (20 sources) [...] mg oral capsule (20 sources) Start: End: take 1 capsule by mouth twice [...] on above: Take 1 capsule by mo [facility] twice daily for 30 days. Take 1 capsule by [facility] twice daily for 30 days. Do not start before July 02, 2022. Take 1 capsule by [facility] twice daily for 28 days. Take 1 capsule by [facility] two times a day for 30 days. [...] mg Start: 03-26-2015 take 1 tablet by [facility] every six hours as needed for [...] by mouth. Active take 2 tablets by [facility] every twelve hours as needed for pain [...] Taking at Discharge) 20 ml albumin human, custodial 250 mg/ml injection (2 sources) Human Serum [...] tablet by mouth 40 mEq, Oral, ONCE, Thu01/27/20 at 2312, For 1 dose Do not crush, chew, or suck on tablet. Tablet may also be broken in half and each half swallowed separately. Start: 11-29-2019 take 1 tablet by [facility] twice daily potassium chloride ER (K-DUR, KLOR-CON) [...] Comment on above: Take 1 tablet by [facility] twice daily. 1000 ml potassium chloride 0.04 [...] 2312 Start: 12-12-2019 take 1 capsule by [facility] three times daily valproic acid (DEPAKENE) 250 mg capsule Take 1 capsule by mouth three times daily. 90 capsule 2 12/12/2019 Active Comment on above: Take 1 capsule by [facility] three times daily. vancomycin (VANCOCIN) 1500 mg [...] Chronic Chronic obstructive pulmonary disease and bronchiectasis (2 sources) Chronic obstructive pulmonary disease, unspecified; Translations: [Chronic obstructive pulmonary disease, unspecified] Onset: 04-27-2024 Chronic Delirium, dementia, and amnestic and other cognitive disorders (2 sources) Age-related physical debility; Translations: [Age-related physical debility] Onset: 04-27-2024 Chronic Diseases of white blood cells (1 [...] of vertebra, site unspecified] Onset: 09-02-2024 Chronic Infective arthritis and osteomyelitis (except that caused by tuberculosis or sexually transmitted disease) (20 sources) Infective arthritis; Translations: [Pyogenic arthritis, unspecified] Onset: 11-05-2019 11-05-2019 Episodic Joint disorders and dislocations; trauma-related (5 sources) [...] sources) Multiple sclerosis; Translations: [Multiple sclerosis] Onset: 09-30-2024 12-26-2020 Chronic Nonmalignant breast conditions (1 source) [...] INSUFF CHRONIC PERIPHERAL] Onset: 01-22-2023 Episodic Other nervous system disorders (1 source) [...] thrive; Translations: [Adult failure to thrive] Onset: 09-30-2024 Episodic Other skin disorders (1 source) Localized [...] [Chronic nonintractable headache] Onset: 03-26-2015 03-26-2015 Episodic Joint disorders and dislocations; trauma-related (20 sources) Dislocation of patellofemoral joint; Translations: [Unspecified dislocation of right patella, initial encounter] Onset: 04-20-2017 Resolved: 04-21-2017 04-21-2017 Episodic Other aftercare (6 sources) Patient encounter status; Translations: [Encounter for palliative care] Onset: 10-20-2019 10-20-2019 Episodic Other aftercare (20 sources) Long-term current use of benzodiazepine; Translations: [Other roasterman (current) drug therapy] Onset: 11-28-2017 07-10-2018 Episodic Other aftercare (20 sources) Prescribed medication regimen behavior finding; Translations: [USP (current) use of opiate analgesic] Onset: 11-28-2017 11-05-2019 Episodic Other aftercare (2 sources) Other skilled nursing (current) drug therapy; Translations: [Other roasterman (current) drug therapy] Onset: 06-03-2024 Episodic Other circulatory disease (20 sources) Low blood pressure; Translations: [Hypotension, unspecified] Onset: 07-09-2018 07-09-2018 Episodic Other connective tissue disease (20 sources) Disorder of tendon; Translations: [Other specified disorders of synovium and tendon, multiple sites] Onset: 03-24-2017 02-24-2018 Episodic Other connective tissue disease (2 sources) Muscle weakness (generalized); Translations: [Muscle weakness (generalized)] Onset: 02-27-2024 Episodic Other fractures (1 source) Stable burst fracture of T7-T8 vertebra, subsequent encounter for fracture with nonunion; Translations: [Stable burst fracture of T7-T8 vertebra, subsequent encounter for fracture with nonunion] Onset: 09-02-2024 Episodic Other lower respiratory disease (20 sources) [...] Results Test Name Value Interpretation Reference Range [facility] [id number] 10-20-2024 [id number] Next Site of Care Admission Date: 10/17/2024 12:22 PM Patient Name: CHARLIE NGUYEN Location: [address] CARDIAC PCU/[facility] [id number] A Date of : 1955 ------- Placement Information ------- Referral Type:Half-Way/SNF - Return Referral ID:[id number] Provider Name:[facility] Address 1:[address] [place] [address] [address] Address 2: City:[place] Selection Factors:Returning to Facility State:[place] [facility] [phone] MAR & Discharge med list transmitted to [facility] via [employer] per TCC request. Electronically signed by [facility] Kris Anderson [facility] [phone] Rounds this am DCP: return to SNF today Notified daughter/Vicente Tasked [facility] to send DC packet and MAR to [facility] n2n report number is [phone] - 300 grossman segmental paving supervisor time is confirmed to 5pm [facility] Nursing Noteon 10-20-2024 Nursing Note Report called to Yoly at [facility]. Pickup scheduled for 5pm. [facility] Nursing Note Pt refusing blood draw this am. Pt became verbally abusive to nurse and phlebotomy. Educated pt on reason why blood was going to be drawn. Pt still refuses. Will continue to monitor this shift. Normal [facility] 30on 10-19-2024 30 Problem: Knowledge Deficit Goal: Patient/family/caregi kendy demonstrates understanding of disease process, treatment plan, medications, and discharge instructions Outcome: Progressing Problem: Potential for Compromised Skin Integrity Goal: Skin Integrity is Maintained or Improved Outcome: Progressing Goal: Nutritional status is improving Outcome: Progressing Problem: Urinary Incontinence Goal: Perineal skin integrity is maintained or improved Outcome: Progressing Normal [facility] 30 Problem: Knowledge Deficit Goal: Patient/family/caregi kendy demonstrates understanding of disease process, treatment plan, medications, and discharge instructions Outcome: Progressing Problem: Potential for Compromised Skin Integrity Goal: Skin Integrity is Maintained or Improved Outcome: Progressing Goal: Nutritional status is improving Outcome: Progressing Problem: Urinary Incontinence Goal: Perineal skin integrity is maintained or improved Outcome: Progressing Normal [facility] BASIC METABOLIC PANELon 05-2 Anion gap [Moles/Vol] 9 mmol/L Normal 3-13 [facility] Comment on above: Performed By: #### L [id number] ####Permastone Applicator: KWESI SANCHEZ ([id number])[facility] (SB[facility])[address] [place] [address] Calcium [Mass/Vol] 8.6 mg/dL Low 8.8-10.0 [facility] Comment on above: Performed By: #### L AB15 ####Permastone Applicator: KWESI SANCHEZ ([id number])[facility] ([facility])[address] Chloride [Moles/Vol] 101 mmol/L Normal 98-107 [facility] Comment on above: Performed By: #### L AB15 ####Permastone Applicator: KWESI SANCHEZ ([id number])[facility] ([facility])[address] CO2 [Moles/Vol] 25 mmol/L Normal 23-31 [facility] Comment on above: Performed By: #### L AB15 ####Permastone Applicator: KWESI SANCHEZ ([id number])[facility] ([facility])[address] Creatinine [Mass/Vol] 0.82 mg/dL Normal 0.57-1.11 [facility] Comment on above: Performed By: #### L AB15 ####Permastone Applicator: KWESI SANCHEZ ([id number])[facility] ([facility])[address] [place] [address] [place] GLOMERULAR FILTRATION RATE ML/MIN/1.73 SQ M.PREDICTED 78.0 mL/min/1.73m*2 Normal >60.0 [facility] Comment on above: Result Comment: Calc ulation based on the Chronic Kidney Disease Epidemiology Collaboration (CKD-EPI) equation refit without adjustment for race Performed By: #### L [id number] ####Permastone Applicator: KWESI SANCHEZ ([id number])[facility] ([facility])[address] Glucose [Mass/Vol] 107 mg/dL Normal 82-115 [facility] Comment on above: Performed By: #### L AB15 ####Permastone Applicator: KWESI SANCHEZ ([id number])[facility] (HLAB)[address] Potassium [Moles/Vol] 4.0 mmol/L Normal 3.5-5.1 [facility] Comment on above: Result Comment: [facility] potassium values may be up to 0.5 mmol/L lower than serum values. Performed By: #### L AB15 ####Permastone Applicator: KWESI SANCHEZ ([id number])[facility] ([facility])[address] [place] [address] [place] Sodium [Moles/Vol] 135 mmol/L Low 136-145 [facility] Comment on above: Performed By: #### L AB15 ####Permastone Applicator: KWESI SANCHEZ ([id number])[facility] ([facility])[address] [place] [address] [place] Urea nitrogen [Mass/Vol] 23 mg/dL Normal 9-23 [facility] Comment on above: Performed By: #### L AB15 ####Permastone Applicator: KWESI PIKEAGUSTIN ([id number])[facility] ([facility])[address] CBC WITH AUTO DIFFERENTIALon 10-19-2024 Basophils (Bld) [#/Vol] 0.1 10*3/uL Normal 0.0-0.2 [facility] Comment on above: Performed By: #### L [id number] ####Permastone Applicator: KWESI SANHCEZ ([id number])[facility] ([facility])[address] Basophils/100 WBC (Bld) 0.5 % Normal 0.0-2.[address] [facility] Comment on above: Performed By: #### L [id number] ####Permastone Applicator: KWESI PIKEAGUSTIN ([id number])[facility] ([facility])[address] Eosinophils (Bld) [#/Vol] 0.0 10*3/uL Normal 0.0-0.5 [facility] Comment on above: Performed By: #### L [id number] ####Permastone Applicator: KWESI SANCHEZ ([id number])[facility] ([facility])[address] Eosinophils/100 WBC (Bld) 0.0 % Normal 0.0-6.0 [facility] Comment on above: Performed By: #### L [id number] ####Permastone Applicator: KWESI SANCHEZ ([id number])[facility] ([facility])[address] Erythrocyte distribution width (RBC) [Ratio] 14.4 % Normal 11.5-15.0 [facility] Comment on above: Performed By: #### L [id number] ####Permastone Applicator: KWESI SANCHEZ ([id number])[facility] ([facility])[address] Hematocrit (Bld) [Volume fraction] 42.7 % Normal 35.0-47.0 [facility] Comment on above: Performed By: #### L [id number] ####Permastone Applicator: KWESI SANCHEZ ([id number])[facility] ([facility])[address] Hemoglobin (Bld) [Mass/Vol] 13.9 g/dL Normal 11.7-16.0 [facility] Comment on above: Performed By: #### L [id number] ####Permastone Applicator: KWESI SANCHEZ ([id number])[facility] (SBAB)[address] IMMATURE GRANS % 0.9 % Normal 0.0-2.0 [facility] Comment on above: Performed By: #### L [id number] ####Permastone Applicator: KWESI SANCHEZ ([id number])[facility] ([facility])[address] IMMATURE GRANS ABSOLUTE 0.1 10*3/uL High <0.1 [facility] Comment on above: Performed By: #### L [id number] ####Permastone Applicator: KWESI SANCHEZ ([id number])[facility] ([facility])[address] [place] [address] Lymphocytes (Bld) [#/Vol] 1.6 10*3/uL Normal 1.0-4.3 [facility] Comment on above: Performed By: #### L [id number] ####Permastone Applicator: KWESI SANCHEZ ([id number])[facility] ([facility])[address] Lymphocytes/100 WBC (Bld) 15.1 % Normal 15.0-45.0 [facility] Comment on above: Performed By: #### L [id number] ####Permastone Applicator: KWESI SANCHEZ ([id number])[facility] (SBAB)[address] [place] [address] MCH (RBC) [Entitic mass] 32.2 pg Normal 26.0-34.0 [facility] Comment on above: Performed By: #### L [id number] ####Permastone Applicator: KWESI PIKEAGUSTIN ([id number])[facility] ([facility])[address] MCHC 32.6 % Normal 30.5-36.0 [facility] Comment on above: Performed By: #### L [id number] ####Permastone Applicator: KWESI PIKEAGUSTIN ([id number])[facility] ([facility])[address] MCV (RBC) [Entitic vol] 98.8 fL Normal 77.0-99.[address] [facility] Comment on above: Performed By: #### L [id number] ####Permastone Applicator: KWESI PIKEAGUSTIN ([id number])[facility] [place] ([facility])[address] Monocytes (Bld) [#/Vol] 1.5 10*3/uL High 0.0-0.9 [facility] Comment on above: Performed By: #### L [id number] ####Permastone Applicator: KWESI PIKEAGUSTIN ([id number])[facility] [place] ([facility])[address] Monocytes/100 WBC (Bld) 13.8 % High 5.0-13.[address] [facility] Comment on above: Performed By: #### L [id number] ####Permastone Applicator: KWESI PIKEAGUSTIN ([id number])[facility] [place] ([facility])[address] [place] [address] [place] NEUTROPHILS ABSOLUTE 7.4 10*3/uL Normal 1.8-7.5 [facility] Comment on above: Performed By: #### L [id number] ####Permastone Applicator: KWESI PIKEAGUSTIN ([id number])[facility] [place] ([facility])[address] Neutrophils/100 WBC (Bld) 69.7 % Normal 38.0-82.0 [facility] Comment on above: Performed By: #### L [id number] ####Permastone Applicator: KWESI SANCHEZ ([id number])[facility] [place] ([facility])[address] NRBC 0.0 /100 WBCs Normal 0.0-2.0 [facility] Comment on above: Performed By: #### L [id number] ####Permastone Applicator: KWESI SANCHEZ ([id number])[facility] [place] ([facility])[address] Platelet mean volume (Bld) [Entitic vol] 9.9 fL Normal 9.0-12.7 [facility] Comment on above: Performed By: #### L [id number] ####Permastone Applicator: KWESI SANCHEZ ([id number])[facility] [place] ([facility])[address] Platelets (Bld) [#/Vol] 207 10*3/uL Normal 140-440 [facility] Comment on above: Performed By: #### L [id number] ####Permastone Applicator: KWESI SANCHEZ ([id number])[facility] [place] ([facility])[address] RBC (Bld) [#/Vol] 4.32 10*6/uL Normal 3.80-5.20 [facility] Comment on above: Performed By: #### L [id number] ####Permastone Applicator: KWESI SANCHEZ ([id number])[facility] [place] ([facility])[address] WBC (Bld) [#/Vol] 10.6 10*3/uL Normal 3.6-10.7 [facility] Comment on above: Performed By: #### L [id number] ####Permastone Applicator: KWESI SANCHEZ ([id number])[facility] [place] ([facility])[address] Nursing Noteon 10-19-2024 Nursing Note Wound [...] sitting in chair. Verbalized understanding. Discussed with tactical air defense controller. Staff states MASD to gluteal cleft and redness to abdominal folds. Prevention Measures in place, including: Spraggs sheet with pillows/wedges, Heels elevated off bed on pillows, Zinc/Moisture Barrier ointment, Waffle chair cushion (obtain for pt once getting out of bed to chair). Skin Care precaution order set in place. Dietitian sample prep technician involved. PT consult in place. D/W nursing staff. Will continue to follow pt. Please secure chat for any questions or concerns. Tanesha Balderas RN [facility] Progress Noteon 10-19-2024 Progress Note PHYSICAL THERAPY [facility] Name/MRN: Charlie Nguyen ([id number]) Date: 10/19/2024 Chart review complete. RN cleared [...] and as schedule permits. Tino Jung, PT [facility] Progress Note Nutrition rescreen complete. Pt assigned a level one for nutrition care. [facility] 30on 10-18-2024 30 Problem: Knowledge Deficit Goal: Patient/family/caregi kendy demonstrates understanding of disease process, treatment plan, medications, and discharge instructions Outcome: Progressing Problem: Potential for Compromised Skin Integrity Goal: Skin Integrity is Maintained or Improved Outcome: Progressing Goal: Nutritional status is improving Outcome: Progressing Problem: Urinary Incontinence Goal: Perineal skin integrity is maintained or improved Outcome: Progressing Normal [facility] [id number] 10-18-2024 [id number] -Pt admitted for altered mental status/UTI. -Chart reviewed -Pt is from [facility], he is LTC and a bedhold. -Will not need auth to return. -Tasked EL TEACHER to send return referral to facility. -Receiving IV ATB -PT ordered and pending at this time -On 4L O2, 2L is her baseline -Left HIPAA compliant VM to daughter for return call to verify discharge plan. -Discharge plan at this time is to return to [facility]. -manager banquet to follow and assist as needed. Normal [facility] BASIC METABOLIC PANELon 05 Anion gap [Moles/Vol] 11 mmol/L Normal 3-13 [facility] Comment on above: Performed By: #### L AB15 ####Permastone Applicator: KWESI SANCHEZ ([id number])[facility] ([facility])[address] [place] [address] Calcium [Mass/Vol] 9.2 mg/dL Normal 8.8-10.0 [facility] Comment on above: Performed By: #### L AB15 ####Permastone Applicator: KWESI SANCHEZ ([id number])[facility] ([facility])[address] Chloride [Moles/Vol] 99 mmol/L Normal 98-107 [facility] Comment on above: Performed By: #### L AB15 ####Permastone Applicator: KWESI SANCHEZ ([id number])[facility] ([facility])[address] CO2 [Moles/Vol] 24 mmol/L Normal 23-31 [facility] Comment on above: Performed By: #### L AB15 ####Permastone Applicator: KWESI SANCHEZ ([id number])[facility] ([facility])[address] Creatinine [Mass/Vol] 0.85 mg/dL Normal 0.57-1.11 [facility] Comment on above: Performed By: #### L AB15 ####Permastone Applicator: KWESI SANCHEZ ([id number])[facility] ([facility])[address] [place] [address] [place] GLOMERULAR FILTRATION RATE ML/MIN/1.73 SQ M.PREDICTED 74.7 mL/min/1.73m*2 Normal >60.0 [facility] Comment on above: Result Comment: Calc ulation based on the Chronic Kidney Disease Epidemiology Collaboration (CKD-EPI) equation refit without adjustment for race Performed By: #### L AB15 ####Permastone Applicator: KWESI SANCHEZ ([id number])[facility] ([facility])[address] Glucose [Mass/Vol] 106 mg/dL Normal 82-115 [facility] Comment on above: Performed By: #### L AB15 ####Permastone Applicator: KWESI SANCHEZ ([id number])[facility] (HLAB)[address] Potassium [Moles/Vol] 4.1 mmol/L Normal 3.5-5.1 [facility] Comment on above: Result Comment: [facility] potassium values may be up to 0.5 mmol/L lower than serum values. Performed By: #### L AB15 ####Permastone Applicator: KWESI SANCHEZ ([id number])[facility] (SBHLAB)[address] [place] [address] [place] Sodium [Moles/Vol] 134 mmol/L Low 136-145 [facility] Comment on above: Performed By: #### L AB15 ####Permastone Applicator: KWESI SANCHEZ ([id number])[facility] BARBDR[facility]ITAL[facility] (SBHLAB)[address] [place] [address] [place] Urea nitrogen [Mass/Vol] 22 mg/dL Normal 9-23 [facility] Comment on above: Performed By: #### L AB15 ####Permastone Applicator: KWESI SANCHEZ ([id number])[facility]ITALMarc[facility]ITAL[facility] (SBHLAB)[address] [place] [address] CBC WITH AUTO DIFFERENTIALon 10-18-2024 Erythrocyte distribution width (RBC) [Ratio] 14.4 % Normal 11.5-15.0 [facility] Comment on above: Performed By: #### L [id number], [id number] ####Permastone Applicator: KWESI SANCHEZ ([id number])[facility] (SBAB)[address] [place] [address] Hematocrit (Bld) [Volume fraction] 47.6 % High 35.0-47.0 [facility] Comment on above: Performed By: #### L [id number], [id number] ####Permastone Applicator: KWESI SANCHEZ ([id number])[facility]ITAL[facility] [place] (SBHLAB)[address] [place] [address] Hemoglobin (Bld) [Mass/Vol] 15.3 g/dL Normal 11.7-16.0 [facility] Comment on above: Performed By: #### L [id number], [id number] ####Permastone Applicator: KWESI SANCHEZ ([id number])[facility] ([facility])[address] [place] [address] MCH (RBC) [Entitic mass] 31.9 pg Normal 26.0-34.0 [facility] Comment on above: Performed By: #### L [id number], [id number] ####Permastone Applicator: KWESI SANCHEZ ([id number])[facility] (SBHLAB)[address] [place] [address] MCHC 32.1 % Normal 30.5-36.0 [facility] Comment on above: Performed By: #### L [id number], [id number] ####Permastone Applicator: KWESI SANCHEZ ([id number])[facility] (SBHLAB)[address] MCV (RBC) [Entitic vol] 99.4 fL High 77.0-99.[address] [facility] Comment on above: Performed By: #### L [id number], [id number] ####Permastone Applicator: KWESI SANCHEZ ([id number])[facility] (SBHLAB)[address] Platelet mean volume (Bld) [Entitic vol] 9.8 fL Normal 9.0-12.7 [facility] Comment on above: Performed By: #### L [id number], [id number] ####Permastone Applicator: KWESI SANCHEZ ([id number])[facility]ITALMarc[facility] (SBHLAB)[address] Platelets (Bld) [#/Vol] 202 10*3/uL Normal 140-440 [facility] Comment on above: Performed By: #### [place] [id number], [id number] ####Permastone Applicator: KWESI SANCHEZ ([id number])[facility]ITALMarc[facility] (SBHLAB)[address] RBC (Bld) [#/Vol] 4.79 10*6/uL Normal 3.80-5.20 [facility] Comment on above: Performed By: #### L [id number], [id number] ####Permastone Applicator: KWESI SANCHEZ ([id number])[facility]ITALMarcos [facility]TE[facility]N (SBHLAB)[address] WBC (Bld) [#/Vol] 13.9 10*3/uL High 3.6-10.7 [facility] Comment on above: Performed By: #### L [id number], [id number] ####Permastone Applicator: KWESI SANCHEZ ([id number])[facility]ITALMarcos CORTEZN (SBHLAB)[address] MANUAL DIFFERENTIAL (CELLAVI PELON)on 10-18-2024 BAND NEUTROPHILS TOTAL PER COUNTED LEUKOCYTES BY MANUAL COUNT 2 Normal [facility] Comment on above: Performed By: #### L [id number], [id number] ####Permastone Applicator: KWESI SANCHEZ ([id number])[facility] [place] (SBHLAB)[address] [place] [address] [place] BANDS (10*3/UL) IN BLOOD-CELLAVISION 0.3 10*3/uL High <=0.0 [facility] Comment on above: Performed By: #### L [id number], [id number] ####Permastone Applicator: KWESI SANCHEZ ([id number])[facility] [place] (SBHLAB)[address] [place] [address] [place] BASOPHILS TOTAL PER COUNTED LEUKOCYTES BY MANUAL COUNT Normal [facility] Comment on above: Performed By: #### L [id number], [id number] ####Permastone Applicator: KWESI SANCHEZ ([id number])[facility] [place] (SBHLAB)[address] BLASTS TOTAL PER COUNTED LEUKOCYTES BY MANUAL COUNT Normal [facility] Comment on above: Performed By: #### L [id number], [id number] ####Permastone Applicator: KWESI SANCHEZ ([id number])[facility] [place] (SBHLAB)[address] LUIS CELLS PRESENCE IN BLOOD BY LIGHT MICROSCOPY Moderate Abnormal (none) [facility] Comment on above: Performed By: #### L [id number], [id number] ####Permastone Applicator: KWESI SANCHEZ ([id number])[facility] [place] (SBHLAB)[address] [place] [address] [place] EOSINOPHILS TOTAL PER COUNTED LEUKOCYTES BY MANUAL COUNT Normal [facility] Comment on above: Performed By: #### L [id number], [id number] ####Permastone Applicator: KWESI SANCHEZ ([id number])[facility] [place] (SBHLAB)[address] LYMPHOCYTES (10*3/UL) IN BLOOD-CELLAVISION 0.8 10*3/uL Low 1.0-4.3 [facility] Comment on above: Performed By: #### L TY4776, [id number] ####Permastone Applicator: KWESI SANCHEZ ([id number])[facility] [place] (SBHLAB)[address] [place] [address] [place] LYMPHOCYTES TOTAL PER COUNTED LEUKOCYTES BY MANUAL COUNT 6 Normal [facility] Comment on above: Performed By: #### L ZD7247, [id number] ####Permastone Applicator: KWESI PIKEAGUSTIN ([id number])[facility] [place] (SBHLAB)[address] [place] [address] [place] LYMPHOCYTES/100 LEUKOCYTES IN BLOOD-CELLAVISION 6 % Low 15-45 [facility] Comment on above: Performed By: #### L BY7551, [id number] ####Permastone Applicator: KWESI PIKEAGUSTIN ([id number])[facility] [place] (SBHLAB)[address] [place] [address] [place] METAMYELOCYTES TOTAL PER COUNTED LEUKOCYTES BY MANUAL COUNT Normal [facility] Comment on above: Performed By: #### L [id number], [id number] ####Permastone Applicator: KWESI SANCHEZ ([id number])[facility] [place] (SBHLAB)[address] [place] [address] [place] MONOCYTES (10*3/UL) IN BLOOD-CELLAVISION 1.3 10*3/uL High 0.0-0.9 [facility] Comment on above: Performed By: #### L [id number], [id number] ####Permastone Applicator: KWESI SANCHEZ ([id number])[facility] [place] (SBHLAB)[address] [place] [address] [place] MONOCYTES TOTAL PER COUNTED LEUKOCYTES BY MANUAL COUNT 9 Normal [facility] Comment on above: Performed By: #### L [id number], [id number] ####Permastone Applicator: KWESI SANCHEZ ([id number])[facility] [place] (SBHLAB)[address] [place] [address] [place] MONOCYTES/100 LEUKOCYTES IN BLOOD-CHARLES 9 % Normal 5-13 [facility] Comment on above: Performed By: #### L [id number], [id number] ####Permastone Applicator: KWESI SANCHEZ ([id number])[facility] [place] (SBHLAB)[address] [place] [address] [place] MYELOCYTES COUNTED BY MANUAL COUNT Normal [facility] Comment on above: Performed By: #### L ZM0178, [id number] ####Permastone Applicator: KWESI SANCHEZ ([id number])[facility] [place] (SBHLAB)[address] NEUTROPHILS BAND FORM/100 LEUKOCYTES IN BLOOD-CELLAVISI 2 % High <=0 [facility] Comment on above: Performed By: #### L XW7475, [id number] ####Permastone Applicator: KWESI SANCHEZ ([id number])[facility] [place] (SBHLAB)[address] NEUTROPHILS TOTAL PER COUNTED LEUKOCYTES BY MANUAL COUNT 83 Normal [facility] Comment on above: Performed By: #### L GY1012, [id number] ####Permastone Applicator: KWESI SANCHEZ ([id number])[facility] [place] (SBHLAB)[address] [place] [address] [place] POIKILOCYTOSIS (PRESENCE) IN BLOOD BY LIGHT MICROSCOPY Slight Abnormal (none) [facility] Comment on above: Performed By: #### L NY7590, [id number] ####Permastone Applicator: KWESI SANCHEZ ([id number])[facility] [place] (SBHLAB)[address] [place] [address] [place] PROMYELOCYTES TOTAL PER COUNTED LEUKOCYTES BY MANUAL COUNT Normal [facility] Comment on above: Performed By: #### L [id number], [id number] ####Permastone Applicator: KWESI SANCHEZ ([id number])[facility] [place] (SBHLAB)[address] [place] [address] [place] RBC MORPHOLOGY IN BLOOD abnormal Normal [facility] Comment on above: Performed By: #### L [id number], [id number] ####Permastone Applicator: KWESI SANCHEZ ([id number])[facility] (SBHLAB)[address] SEGMENTED NEUTROPHILS (10*3/UL) IN BLOOD-CELLAVISION 11.8 10*3/uL High 1.8-7.5 [facility] Comment on above: Performed By: #### L IZ3426, [id number] ####Permastone Applicator: KWESI SANCHEZ ([id number])[facility] (SBHLAB)[address] SEGMENTED NEUTROPHILS/100 LEUKOCYTES-CE 83 % High 38-82 [facility] Comment on above: Performed By: #### L VT7740, [id number] ####Permastone Applicator: KWESI PIKEAGUSTIN ([id number])[facility] (SBHLAB)[address] UNCLASSIFIED CELLS TOTAL PER COUNTED LEUKOCYTES BY MANUAL COUNT [facility] Comment on above: Performed By: #### L OY7136, [id number] ####Permastone Applicator: KWESI PIKEAGUSTIN ([id number])[facility] (SBHLAB)[address] VARIANT LYMPHOCYTES TOTAL PER COUNTED LEUKOCYTES BY MANUAL COUNT [facility] Comment on above: Performed By: #### L [id number], [id number] ####Permastone Applicator: KWESI PIKEAGUSTIN ([id number])[facility] (SBHLAB)[address] Progress Noteon 10-18-2024 Progress Note PHYSICAL THERAPY [facility] Name/MRN: Charlie Nguyen ([id number]) Date: 10/18/2024 Chart review completed. PT assessment attempted, patient currently declining to participate in PT and to attempt OOB mobility this date despite multiple options provided. Unable to encourage patient this date. Will continue to follow and re-attempt as appropriate. Nathaly Garcia, PT Normal [facility] BASIC METABOLIC PANELon 05- Anion gap [Moles/Vol] 10 mmol/L Normal 3-13 [facility] Comment on above: Performed By: #### L AB15 #### Permastone Applicator: KWESI SANCHEZ ([id number]) [facility] [place] (SBHLAB) [address] Calcium [Mass/Vol] 8.9 mg/dL Normal 8.8-10.0 [facility] Comment on above: Performed By: #### L AB15 #### Permastone Applicator: KWESI SANCHEZ ([id number]) [facility] (SBHLAB) [address] Chloride [Moles/Vol] 100 mmol/L Normal 98-107 [facility] Comment on above: Performed By: #### L AB15 #### Permastone Applicator: KWESI SANCHEZ ([id number]) [facility] [place] (SBHLAB) [address] CO2 [Moles/Vol] 24 mmol/L Normal 23-31 [facility] Comment on above: Performed By: #### L AB15 #### Permastone Applicator: KWESI SANCHEZ ([id number]) [facility] (SB[facility]AB) [address] Creatinine [Mass/Vol] 0.82 mg/dL Normal 0.57-1.11 [facility] Comment on above: Performed By: #### L AB15 #### Permastone Applicator: KWESI SANCHEZ ([id number]) [facility] (SBHLAB) [address] GLOMERULAR FILTRATION RATE ML/MIN/1.73 SQ M.PREDICTED 78.0 mL/min/1.73m*2 Normal >60.0 [facility] Comment on above: Result Comment: Calc ulation based on the Chronic Kidney Disease Epidemiology Collaboration (CKD-EPI) equation refit without adjustment for race Performed By: #### L AB15 #### Permastone Applicator: KWESI SANCHEZ ([id number]) [facility] [place] (SBHLAB) [address] [place] [address] [place] Glucose [Mass/Vol] 135 mg/dL High 82-115 [facility] Comment on above: Performed By: #### L AB15 #### Permastone Applicator: KWESI SANCHEZ ([id number]) [facility] (SBHLAB) [address] Potassium [Moles/Vol] 4.5 mmol/L Normal 3.5-5.1 [facility] Comment on above: Result Comment: [facility] potassium values may be up to 0.5 mmol/L lower than serum values. Performed By: #### L AB15 #### Permastone Applicator: KWESI SANCHEZ ([id number]) [facility] (SBHLAB) [address] Sodium [Moles/Vol] 134 mmol/L Low 136-145 [facility] Comment on above: Performed By: #### L AB15 #### Permastone Applicator: KWESI SANCHEZ ([id number]) [facility] (SBHLAB) [address] Urea nitrogen [Mass/Vol] 21 mg/dL Normal 9-23 [facility] Comment on above: Performed By: #### L AB15 #### Permastone Applicator: KWESI SANCHEZ ([id number]) [facility] (SBHLAB) [address] CBC WITH AUTO DIFFERENTIALon 10-17-2024 Erythrocyte distribution width (RBC) [Ratio] 14.4 % Normal 11.5-15.0 [facility] Comment on above: Performed By: #### L [id number], [id number] ####Permastone Applicator: KWESI SANCHEZ ([id number])[facility] (SBHLAB)[address] Hematocrit (Bld) [Volume fraction] 43.4 % Normal 35.0-47.0 [facility] Comment on above: Performed By: #### L [id number], [id number] ####Permastone Applicator: KWESI SANCHEZ ([id number])[facility] (SBHLAB)[address] Hemoglobin (Bld) [Mass/Vol] 14.3 g/dL Normal 11.7-16.0 [facility] Comment on above: Performed By: #### L [id number], [id number] ####Permastone Applicator: KWESI SANCHEZ ([id number])[facility]ITALMarc[facility] (SBHLAB)[address] MCH (RBC) [Entitic mass] 32.1 pg Normal 26.0-34.0 [facility] Comment on above: Performed By: #### L [id number], [id number] ####Permastone Applicator: KWESI SANCHEZ ([id number])[facility] (SBHLAB)[address] MCHC 32.9 % Normal 30.5-36.0 [facility] Comment on above: Performed By: #### L [id number], [id number] ####Permastone Applicator: KWESI SANCHEZ ([id number])[facility] (SBHLAB)[address] MCV (RBC) [Entitic vol] 97.3 fL Normal 77.0-99.[address] [facility] Comment on above: Performed By: #### L [id number], [id number] ####Permastone Applicator: KWESI SANCHEZ ([id number])[facility] (SBHLAB)[address] Platelet mean volume (Bld) [Entitic vol] 10.3 fL Normal 9.0-12.7 [facility] Comment on above: Performed By: #### L [id number], [id number] ####Permastone Applicator: KWESI SANCHEZ ([id number])[facility] (SBHLAB)[address] Platelets (Bld) [#/Vol] 209 10*3/uL Normal 140-440 [facility] Comment on above: Performed By: #### L [id number], [id number] ####Permastone Applicator: KWESI SANCHEZ ([id number])[facility]ITALMarc[facility] [place] (SBHLAB)[address] RBC (Bld) [#/Vol] 4.46 10*6/uL Normal 3.80-5.20 [facility] Comment on above: Performed By: #### L [id number], [id number] ####Permastone Applicator: KWESI SANCHEZ ([id number])[facility]ITALMarcos BLACKBURNDR. DAN [facility]N (SBHLAB)[address] [place] [address] WBC (Bld) [#/Vol] 16.1 10*3/uL High 3.6-10.7 [facility] Comment on above: Performed By: #### L [id number], [id number] ####Permastone Applicator: KWESI SANCHEZ ([id number])[facility]ITALMarc[facility] (SBHLAB)[address] [place] [address] COMPLETE URINALYSIS WITH REF BALAJI TO CULTUREon 10-17-2024 BACTERIA (#/HPF) IN URINE Loaded Abnormal Negative [facility] Comment on above: Performed By: #### L [id number] ####Permastone Applicator: KWESI SANCHEZ ([id number])[facility]ITALMarcos BLACKBURNDR. DAN [facility]ITALN (SBHLAB)[address] [place] [address]#### [id number] ####Permastone Applicator: KRISTEN DAIGLE ([id number])[facility] (SACLAB)[address] [place] [address] BILIRUBIN, TOTAL PRESENCE IN URINE Negative Normal Negative [facility] Comment on above: Performed By: #### L [id number] ####Permastone Applicator: KWESI SANCHEZ ([id number])[facility]ITALMarc[facility] (SBHLAB)[address] [place] [address]#### [id number] ####Permastone Applicator: KRISTEN DAIGLE ([id number])[facility] (SACLAB)[address] [place] [address] Clarity (U) Turbid Abnormal Clear [facility] Comment on above: Performed By: #### L [id number] ####Permastone Applicator: KWESI SANCHEZ ([id number])[facility] [place] (SBHLAB)[address] [place] [address] [place]#### [id number] ####Permastone Applicator: KRISTEN DAIGLE ([id number])[facility] (SACLAB)[address] [place] [address] Color (U) Yellow Normal Lt. Yellow [facility] Comment on above: Performed By: #### L [id number] ####Permastone Applicator: KWESI SANCHEZ ([id number])[facility] [place] (SBHLAB)[address]#### [id number] ####Permastone Applicator: KRISTEN DAIGLE ([id number])[facility] (SACLAB)[address] [place] [address] GLUCOSE (MG/DL) IN URINE Normal Normal Normal (<70 ) [facility] Comment on above: Performed By: #### L [id number] ####Permastone Applicator: KWESI SANCHEZ ([id number])[facility] (SBHLAB)[address]#### [id number] ####Permastone Applicator: KRISTEN DAIGLE ([id number])[facility] (SACLAB)[address] [place] [address] HEMOGLOBIN PRESENCE IN URINE 1.0 mg/dL Abnormal Negative [facility] Comment on above: Performed By: #### L [id number] ####Permastone Applicator: KWESI SANCHEZ ([id number])[facility] [place] (SBHLAB)[address] [place] [address] [place]#### [id number] ####Permastone Applicator: KRISTEN DAIGLE ([id number])[facility] (SACLAB)[address] [place] [address] Ketones Ql (U) Negative Normal Negative [facility] Comment on above: Performed By: #### L [id number] ####Permastone Applicator: KWESI SANCHEZ ([id number])[facility]A [facility]BDR[facility]N (SBHLAB)[address]#### [id number] ####Permastone Applicator: KRISTEN DAIGLE ([id number])[facility] (SACLAB)[address] [place] [address] LEUKOCYTE ESTERASE PRESENCE IN URINE BY TEST STRIP 500 Simon/uL Abnormal Negative [facility] Comment on above: Performed By: #### L [id number] ####Permastone Applicator: KWESI SANCHEZ ([id number])[facility]A BARBDR[facility]N (SBHLAB)[address]#### [id number] ####Permastone Applicator: KRISTEN DAIGLE ([id number])[facility] ([facility])[address] [place] [address] MUCUS (#/LPF) IN URINE SEDIMENT Few Normal Negative [facility] Comment on above: Performed By: #### L [id number] ####Permastone Applicator: KWESI SANCHEZ ([id number])[facility] (SBHLAB)[address] [place] [address]#### [id number] ####Permastone Applicator: KRISTEN DAIGLE ([id number])[facility] ([facility])[address] [place] [address] NITRITE PRESENCE IN URINE Positive Abnormal Negative [facility] Comment on above: Performed By: #### L [id number] ####Permastone Applicator: KWESI SANCHEZ ([id number])[facility] BARBDR. D[facility]ITALN (SBHLAB)[address] [place] [address]#### [id number] ####Permastone Applicator: KRISTEN DAIGLE ([id number])[facility] (SACLAB)[address] [place] [address] pH (U) 6.5 [pH] Normal 5.0-8.0 [facility] Comment on above: Performed By: #### L [id number] ####Permastone Applicator: KWESI SANCHEZ ([id number])[facility] (SBHLAB)[address] [place] [address]#### [id number] ####Permastone Applicator: KRISTEN DAIGLE ([id number])[facility] (SACLAB)[address] [place] [address] Protein (U) [Mass/Vol] 70 mg/dL Abnormal Negative [facility] Comment on above: Performed By: #### L [id number] ####Permastone Applicator: KWESI SANCHEZ ([id number])[facility] HOSPITALMarocs BLACKBURNDR. DAN C. TRIGG MEMORIAL HOSPITALRitika (SBHLAB)[address] [place] [address]#### [id number] ####Permastone Applicator: KRISTEN DAIGLE ([id number])[facility] ([facility])[address] [place] [address] RBC (#/HPF) IN URINE SEDIMENT 51-100 Abnormal 0-2 [facility] Comment on above: Performed By: #### L [id number] ####Permastone Applicator: KWESI SANCHEZ ([id number])[facility] (SBHLAB)[address] [place] [address]#### [id number] ####Permastone Applicator: KRISTEN DAIGLE ([id number])[facility] ([facility])[address] [place] [address] Specific gravity (U) [Rel density] 1.022 Normal 1.005-1.030 [facility] Comment on above: Result Comment: LAVON Gong COMMENTS: This specimen has been reflexed to urine culture. Performed By: #### L [id number] ####Permastone Applicator: KWESI SANCHEZ ([id number])[facility] ([facility])[address] [place] [address]#### [id number] ####Permastone Applicator: KRISTEN DAIGLE ([id number])[facility] ([facility])[address] [place] [address] SQUAMOUS EPITHELIAL CELLS (#/HPF) IN URINE SEDIMENT 3-5 Normal 3-5 [facility] Comment on above: Performed By: #### L [id number] ####Permastone Applicator: KWESI SANCHEZ ([id number])[facility] ([facility])[address]#### [id number] ####Permastone Applicator: KRISTEN DAIGLE ([id number])[facility] ([facility] [place] [address] UROBILINOGEN (MG/DL) IN URINE 2 mg/dL Abnormal Normal (0-1) [facility] Comment on above: Performed By: #### L [id number] ####Permastone Applicator: KWESI SANCHEZ ([id number])[facility] ([facility])[address]#### [id number] ####Permastone Applicator: KRISTEN DAIGLE ([id number])[facility] ([facility] [place] [address] WBC (LEUKOCYTE) (#/HPF) IN URINE SEDIMENT 51-100 Abnormal 0-5 [facility] Comment on above: Performed By: #### L [id number] ####Permastone Applicator: KWESI SANCHEZ ([id number])[facility] ([facility])[address] [place] [address]#### [id number] ####Permastone Applicator: KRISTEN DAIGLE ([id number])[facility] ([facility] [place] [address] ECG 12-LEADon 10-17-2024 ECG 12-LEAD IMPRESSION: Sinus rhythm Low voltage, precordial leads Nonspecific T abnormalities, lateral leads Electronically Signed On 10-17-2024 14:36:48 EDT by Sulaiman Ricks Normal [facility] ED Nursing Noteon 10-17-2024 ED Nursing Note [...] her comments do not make sense. Normal [facility] ED Nursing Note Pt incontinent of urine and stool. Pt was cleaned up and placed in gown. New pure wick applied and pt aware of need for urine sample. Normal [facility] ED Provider Noteon ED Provider Note EMERGENCY [...] who have . They report that her intermediate is concerned for urinary tract infection, as [...] Family History[3] SOCIAL HISTORY Social History[4] SCREENINGS [place] Coma Scale Best Eye Response: Spontaneous Best Verbal Response: Oriented Best Motor Response: Follows commands [place] Coma Scale Score: 15 PHYSICAL EXAM ED [...] 3-5 Bacteri (more content not included)... Normal [facility] MANUAL DIFFERENTIAL (CELLAVI PELON)on 10-17-2024 BAND NEUTROPHILS TOTAL PER COUNTED LEUKOCYTES BY MANUAL COUNT Normal [facility] Comment on above: Performed By: #### L [id number], [id number] ####Permastone Applicator: KWESI SANCHEZ ([id number])[facility] ([facility])[address] [place] [address] BASOPHILS TOTAL PER COUNTED LEUKOCYTES BY MANUAL COUNT [facility] Comment on above: Performed By: #### L [id number], [id number] ####Permastone Applicator: KWESI SANCHEZ ([id number])[facility] ([facility])[address] [place] [address] BLASTS TOTAL PER COUNTED LEUKOCYTES BY MANUAL COUNT [facility] Comment on above: Performed By: #### L [id number], [id number] ####Permastone Applicator: KWESI SANCHEZ ([id number])[facility] ([facility])[address] [place] [address] DACROCYTES PRESENCE IN BLOOD BY LIGHT MICROSCOPY Slight Abnormal (none) [facility] Comment on above: Performed By: #### L [id number], [id number] ####Permastone Applicator: KWESI SANCHEZ ([id number])[facility] ([facility])[address] [place] [address] EOSINOPHILS TOTAL PER COUNTED LEUKOCYTES BY MANUAL COUNT [facility] Comment on above: Performed By: #### L [id number], [id number] ####Permastone Applicator: KWESI SANCHEZ ([id number])[facility] ([facility])[address] [place] [address] [place] LYMPHOCYTES (10*3/UL) IN BLOOD-CELLAVISION 0.6 10*3/uL Low 1.0-4.3 [facility] Comment on above: Performed By: #### L [id number], [id number] ####Permastone Applicator: KWESI SANCHEZ ([id number])[facility] ([facility])[address] [place] [address] [place] LYMPHOCYTES TOTAL PER COUNTED LEUKOCYTES BY MANUAL COUNT 4 Normal [facility] Comment on above: Performed By: #### L [id number], [id number] ####Permastone Applicator: KWESI SANCHEZ ([id number])[facility] [place] [facility] [place] [address] [place] LYMPHOCYTES/100 LEUKOCYTES IN BLOOD-CELLAVISION 4 % Low 15-45 [facility] Comment on above: Performed By: #### L [id number], [id number] ####Permastone Applicator: KWESI SANCHEZ ([id number])[facility] [place] [facility])[address] [place] [address] [place] METAMYELOCYTES TOTAL PER COUNTED LEUKOCYTES BY MANUAL COUNT [facility] Comment on above: Performed By: #### L [id number], [id number] ####Permastone Applicator: KWESI SANCHEZ ([id number])[facility] [place] ([facility])[address] [place] [address] [place] MONOCYTES (10*3/UL) IN BLOOD-CELLAVISION 1.8 10*3/uL High 0.0-0.9 [facility] Comment on above: Performed By: #### L [id number], [id number] ####Permastone Applicator: KWESI SANCHEZ ([id number])[facility] [place] [facility])[address] [place] [address] [place] MONOCYTES TOTAL PER COUNTED LEUKOCYTES BY MANUAL COUNT 11 Normal [facility] Comment on above: Performed By: #### L [id number], [id number] ####Permastone Applicator: KWESI SANCHEZ ([id number])[facility] ([facility])[address] [place] [address] [place] MONOCYTES/100 LEUKOCYTES IN BLOOD-CHARLES 11 % Normal -13 [facility] Comment on above: Performed By: #### L [id number], [id number] ####Permastone Applicator: KWESI SANCHEZ ([id number])[facility] ([facility])[address] [place] [address] [place] MYELOCYTES COUNTED BY MANUAL COUNT Normal [facility] Comment on above: Performed By: #### L [id number], [id number] ####Permastone Applicator: KWESI SANCHEZ ([id number])[facility] ([facility])[address] NEUTROPHILS TOTAL PER COUNTED LEUKOCYTES BY MANUAL COUNT 88 Normal [facility] Comment on above: Performed By: #### L [id number], [id number] ####Permastone Applicator: KWESI SANCHEZ ([id number])[facility] ([facility])[address] [place] [address] [place] POIKILOCYTOSIS (PRESENCE) IN BLOOD BY LIGHT MICROSCOPY Slight Abnormal (none) [facility] Comment on above: Performed By: #### L [id number], [id number] ####Permastone Applicator: KWESI SANCHEZ ([id number])[facility] [place] ([facility])[address] [place] [address] [place] POLYCHROMASIA IN BLOOD BY LIGHT MICROSCOPY Slight Abnormal (none) [facility] Comment on above: Performed By: #### L [id number], [id number] ####Permastone Applicator: KWESI SANCHEZ ([id number])[facility] [place] [facility])[address] [place] [address] [place] PROMYELOCYTES TOTAL PER COUNTED LEUKOCYTES BY MANUAL COUNT [facility] Comment on above: Performed By: #### L [id number], [id number] ####Permastone Applicator: KWESI SANCHEZ ([id number])[facility] [place] ([facility])[address] [place] [address] [place] RBC MORPHOLOGY IN BLOOD abnormal Normal S [facility] Comment on above: Performed By: #### L [id number], [id number] ####Permastone Applicator: KWESI SANCHEZ ([id number])[facility] ([facility])[address] SEGMENTED NEUTROPHILS (10*3/UL) IN BLOOD-CELLAVISION 13.7 10*3/uL High 1.8-7.5 [facility] Comment on above: Performed By: #### L [id number], [id number] ####Permastone Applicator: KWESI SANCHEZ ([id number])[facility] ([facility])[address] [place] [address] [place] SEGMENTED NEUTROPHILS/100 LEUKOCYTES-CE 85 % High 38-82 [facility] Comment on above: Performed By: #### L [id number], [id number] ####Permastone Applicator: KWESI SANCHEZ ([id number])[facility] ([facility])[address] [place] [address] [place] STOMATOCYTES IN BLOOD BY LIGHT MICROSCOPY Slight Abnormal (none) [facility] Comment on above: Performed By: #### L [id number], [id number] ####Permastone Applicator: KWESI SANCHEZ ([id number])[facility] ([facility])[address] UNCLASSIFIED CELLS TOTAL PER COUNTED LEUKOCYTES BY MANUAL COUNT [facility] Comment on above: Performed By: #### L [id number], [id number] ####Permastone Applicator: KWESI SANCHEZ ([id number])[facility] ([facility])[address] [place] [address] [place] VARIANT LYMPHOCYTES TOTAL PER COUNTED LEUKOCYTES BY MANUAL COUNT [facility] Comment on above: Performed By: #### L [id number], [id number] ####Permastone Applicator: KWESI SANCHEZ ([id number])[facility] ([facility])[address] [place] [address] [place] SARS-COV-2, FLU A/B, AND RSV COMBOon [...] In compliance with this authorization, please visit www.fda.gov/media/799 096/download or www.fda.gov/media/268 209/download to access the applicable information sheets. Normal [facility] Comment on above: Performed By: #### L [id number] #### Permastone Applicator: KWESI SANCHEZ ([id number]) [facility] ([facility]) [address] [place] [address] URINE CULTUREon 10-17-2024 Bacteria identified Cx Nom [...] Non-susceptible NO = No Interpretation ] Normal [facility] Comment on above: Performed By: #### L [id number] ####Permastone Applicator: KWESI SANCHEZ ([id number])[facility] ([facility])[address]#### [id number] ####Permastone Applicator: KRISTEN DAIGLE ([id number])[facility] ([facility])[address] [place] [address] Anion gap in Serum or Plasma Ordered By: Royer Reagan on 08-10-2024 Anion gap [Moles/Vol] 13 mmol/L 5-15 [facility] BUN/creatinine ratioOrdered By: Royer Reagan on 08-10-2024 Urea nitrogen/Creatinine [Mass ratio] 24.2 mg/mg High 10-20 [facility] Bilirubin, totalOrdered By: Royer Reagan on 08-10-2024 Bilirubin [Mass/Vol] 0.39 mg/dL 0.00-1.30 [facility] Carbon dioxide, total [Moles /volume] in Central venous bloodOrdered By: Royer Reagan on 08-10-2024 CO2 [Moles/Vol] 22.7 mmol/L 21.0-32.0 [facility] Chloride assayOrdered By: Adam Reagan on 08-10-2024 Chloride [Moles/Vol] 105 mmol/L 98-108 [facility] Erythrocyte distribution wid th (RBC) [Ratio]Ordered By: Royer Reagan on 08-10-2024 Erythrocyte distribution width (RBC) [Entitic vol] 53.2 fL High 35.1-43.9 [facility] Erythrocyte distribution wid th ratioOrdered By: Royer Reagan on 08-10-2024 Erythrocyte distribution width (RBC) [Ratio] 14.4 % 11.6-14.6 [facility] GFR/1.73 sq M.predicted darnell g non-blacks MDRD (S/P/Bld) [Vol rate/Area]Ordered By: Royer Reagan on 08-10-2024 Estimated GFR (MDRD) Non-Af Amer 69 >60 [facility] Comment on above: mL/min/1.73m2 CKD-EP I Creatinine Equation (2020) Hematocrit Auto (Bld) [Volum e fraction]Ordered By: Royer Reagan on 08-10-2024 Hematocrit (Bld) [Volume fraction] 43.0 % 37-47 [facility] Hemoglobin measurementOrdere d By: Royer Reagan on 08-10-2024 Hemoglobin (Bld) [Mass/Vol] 13.9 g/dL 12.0-15.0 [facility] Laboratory - Chemistry and C hemistry - challengeOrdered By: Royer Reagan on 08-10-2024 AST [Catalytic activity/Vol] 23 U/L <32 [facility] MCV (mean corpuscular volume ) determinationOrdered By: Royer Reagan on 08-10-2024 MCV (RBC) [Entitic vol] 99.8 fL High 81-99 [facility] Mean corpuscular hemoglobin (MCH) determinationOrdered By: Royer Reagan on 08-10-2024 MCH (RBC) [Entitic mass] 32.3 pg High 27.0-32.0 [facility] Mean corpuscular hemoglobin concentration (MCHC) determinationOrdered By: Royer Reagan on 08-10-2024 MCHC (RBC) [Mass/Vol] 32.3 g/dL 32-36 [facility] Mean platelet volume determi nationOrdered By: Royer Reagan on 08-10-2024 Platelet mean volume (Bld) [Entitic vol] 9.9 fL 6.2-12.0 [facility] Platelet countOrdered By: Adam Reagan on 08-10-2024 Platelets (Bld) [#/Vol] 189 10*3/uL 150-450 [facility] Potassium (Unsp spec) [Mass/ Vol]Ordered By: Royer Reagan on 08-10-2024 Potassium [Moles/Vol] 4.2 mmol/L 3.3-5.1 [facility] RBC Auto (Bld) [#/Vol]Ordere d By: Royer Reagan on 08-10-2024 RBC (Bld) [#/Vol] 4.31 10*6/uL 4.2-5.4 [facility] Serum creatinine measurement (mass/volume)Ordered By: Royer Reagan on 08-10-2024 Creatinine [Mass/Vol] 0.91 mg/dL 0.70-1.20 [facility] Serum globulin measurementOr dered By: Royer Reagan on 08-10-2024 Globulin (S) [Mass/Vol] 3.3 g/dL 2.2-4.2 [facility] Serum glucose measurement (m ass/volume)Ordered By: Royer Reagan on 08-10-2024 Glucose [Mass/Vol] 118 mg/dL High 70-99 [facility] Serum or plasma alanine leung otransferase (ALT) measurementOrdered By: Royer Reagan on 08-10-2024 ALT [Catalytic activity/Vol] 15 U/L <35 [facility] Serum or plasma albumin tammie urement (mass/volume)Ordered By: Royer Reagan on 08-10-2024 Albumin [Mass/Vol] 3.5 g/dL 3.4-4.8 [facility] Serum or plasma albumin/glob ulin mass ratioOrdered By: Royer Reagan on 08-10-2024 Albumin/Globulin [Mass ratio] 1.1 {ratio} 0.9-2.4 [facility] Serum or plasma alkaline rosey sphatase measurementOrdered By: Royer Reagan on 08-10-2024 ALP [Catalytic activity/Vol] 72 U/L 35-104 [facility] Serum or plasma calcium tammie urement (mass/volume)Ordered By: Royer Reagan on 08-10-2024 Calcium [Mass/Vol] 8.9 mg/dL 7.6-11.0 [facility] Serum or plasma urea nitroge n measurement (mass/volume)Ordered By: Royer Reagan on 08-10-2024 Urea nitrogen [Mass/Vol] 22 mg/dL High 4-19 [facility] Sodium levelOrdered By: Ismael Reagan on 08-10-2024 Sodium [Moles/Vol] 140 mmol/L 133-145 [facility] Total proteinOrdered By: Ori Reagan on 08-10-2024 Protein [Mass/Vol] 6.8 g/dL 5.9-8.4 [facility] White blood cell (WBC) count Ordered By: Royer Reagan on 08-10-2024 WBC (Bld) [#/Vol] 6.2 10*3/uL 4.4-11.0 [facility] Keshia 07-18-2024 CAR[facility] Telephone ([facility]) CHARLIE NGUYEN ([id number]) 1955 F CHT Date Time Provider Department 07/18/24 MORENO OATES During your visit today, we recorded the following information about you: Fadumo Rahman LPN 07/18/2024 10:26 AM Signed Received 07/18/2024 from [facility]. Placed in provider's inbox for review. Route to [place] for scanning. Allergies As of Date: 07/18/2024 [...] Reason for Visit: Received Outside Medical Records [6911] Cmt: [facility] ([facility]) Labs 07/12/2024 Order(s):CMP (EXTERNAL) [[id number]] Order #: [id number] Prescriptions as of 07/18/2024 - diazePAM (VALIUM) [...] total knee (more content not included)... Normal [facility] Albumin to globulin ratioon 07-12-2024 Albumin/Globulin [Mass ratio] 0.7 {ratio} Low 0.9-2.4 [facility] Bilirubin, totalOrdered By: Ender Oates on 07-12-2024 Bilirubin [Mass/Vol] 0.60 mg/dL 0.20-1.00 [facility] Comment on above: For patients on eltr ombopag therapy, use of Dimension [place] TBIL is not recommended. Blood urea nitrogen (BUN)/cr eatinine ratioOrdered By: Ender Oates on 07-12-2024 Urea nitrogen/Creatinine [Mass ratio] 30.7 mg/mg High 10-20 [facility] CMP (EXTERNAL)on 07-12-2024 Alk Phos Total 80 U/L 45 - 117 U/L [facility] Bili Total 0.6 mg/dL 0.2 - 1 mg/dL [facility] CO2 [Moles/Vol] 27 mmol/L [facility] GFR 78 mL/MIN [facility] GFR AFR AMER 94 mL/MIN [facility] Globulin 4.6 [facility] Interpretation and review of laboratory results Abnormal [facility] Carbon dioxide measurementOr dered By: Ender Oates on 07-12-2024 CO2 [Moles/Vol] 27.0 mmol/L 21.0-32.0 [facility] Chloride measurementon 07-12 Chloride [Moles/Vol] 107 mmol/L 98-107 [facility] Erythrocyte distribution wid th (RBC) [Ratio]Ordered By: Ender Oates on 07-12-2024 Erythrocyte distribution width (RBC) [Entitic vol] 54.0 fL High 35.1-43.9 [facility] Erythrocyte distribution wid th ratioOrdered By: Ender Oates on 07-12-2024 Erythrocyte distribution width (RBC) [Ratio] 14.4 % 11.6-14.6 [facility] Estimated glomerular filtrat ion rate (GFR) AmericanOrdered By: Ender Oates on 07-12-2024 Estimated GFR (MDRD) Amer 94 mL/min >60 [facility] Comment on above: GFR Calc Glomerular filtration rate ( GFR) estimationOrdered By: Ender Oates on 07-12-2024 Estimated GFR (MDRD) Non-Af Amer 78 mL/min >60 [facility] Comment on above: Non- GFR Calc Glucose measurementon 2024 Glucose [Mass/Vol] 97 mg/dL 74-106 [facility] Hematocrit Auto (Bld) [Volum e fraction]Ordered By: Ender Oates on 07-12-2024 Hematocrit (Bld) [Volume fraction] 47.4 % High 37-47 [facility] Hemoglobin measurementOrdere d By: Ender Oates on 07-12-2024 Hemoglobin (Bld) [Mass/Vol] 14.9 g/dL 12.0-15.0 [facility] Laboratory - Chemistry and C hemistry - challengeon 07-12-2024 AST [Catalytic activity/Vol] 23 U/L 15-37 [facility] Comment on above: Slight Hemolysis, Re sult may be falsely increased. MCV (mean corpuscular volume ) determinationOrdered By: Ender Oates on 07-12-2024 MCV (RBC) [Entitic vol] 100.4 fL High 81-99 [facility] Mean corpuscular hemoglobin (MCH) determinationOrdered By: Ender Oates on 07-12-2024 MCH (RBC) [Entitic mass] 31.6 pg 27.0-32.0 [facility] Mean corpuscular hemoglobin concentration (MCHC) determinationOrdered By: Ender Oates on 07-12-2024 MCHC (RBC) [Mass/Vol] 31.4 g/dL Low 32-36 [facility] Mean platelet volume determi nationOrdered By: Ender Oates on 07-12-2024 Platelet mean volume (Bld) [Entitic vol] 10.4 fL 6.2-12.0 [facility] Platelet countOrdered By: Donnie Oates on 07-12-2024 Platelets (Bld) [#/Vol] 180 10*3/uL 150-450 [facility] Potassium measurementon 07-02 Potassium [Moles/Vol] 4.4 mmol/L 3.5-5.1 [facility] Comment on above: Slight Hemolysis, Re sult may be falsely increased. RBC Auto (Bld) [#/Vol]Ordere d By: Ender Oates on 07-12-2024 RBC (Bld) [#/Vol] 4.72 10*6/uL 4.2-5.4 [facility] Serum anion gap measurementO rdered By: Ender Oates on 07-12-2024 Anion gap [Moles/Vol] 4 mmol/L Low 5-15 [facility] Serum globulin measurementOr dered By: Ender Oates on 07-12-2024 Globulin (S) [Mass/Vol] 4.6 g/dL High 2.2-4.2 [facility] Serum or plasma alanine leung otransferase (ALT) measurementon 07-12-2024 ALT [Catalytic activity/Vol] 20 U/L 13-56 [facility] Serum or plasma albumin tammie urement (mass/volume)on 07-12-2024 Albumin [Mass/Vol] 3.2 g/dL 3.2-5.0 [facility] Serum or plasma alkaline rosey sphatase measurementOrdered By: Ender Oates on 07-12-2024 ALP [Catalytic activity/Vol] 80 U/L 45-117 [facility] Serum or plasma calcium tammie urement (mass/volume)on 07-12-2024 Calcium [Mass/Vol] 8.9 mg/dL 8.5-10.1 [facility] Serum or plasma creatinine m easurement (mass/volume)on 07-12-2024 Creatinine [Mass/Vol] 0.78 mg/dL 0.55-1.02 [facility] Comment on above: The validity of the calculated GFR & GFRAA in patients over 70 years has not been determined. Clinical correlation is essential. Serum or plasma urea nitroge n measurement (mass/volume)on 07-12-2024 Urea nitrogen [Mass/Vol] 24 mg/dL High 7-18 [facility] Sodium levelon 07-12-2024 Sodium [Moles/Vol] 138 mmol/L 136-145 [facility] Total proteinon 07-12-2024 Protein [Mass/Vol] 7.8 g/dL 6.4-8.2 [facility] White blood cell (WBC) count Ordered By: Ender Oates on 07-12-2024 WBC (Bld) [#/Vol] 6.2 10*3/uL 4.4-11.0 [facility] Albumin to globulin ratioOrd ered By: Royer Reagan on 07-04-2024 Albumin/Globulin [Mass ratio] 0.7 {ratio} Low 0.9-2.4 [facility] Bilirubin, totalOrdered By: Royer Reagan on 07-04-2024 Bilirubin [Mass/Vol] 0.40 mg/dL 0.20-1.00 [facility] Comment on above: For patients on eltr ombopag therapy, use of Dimension [place] TBIL is not recommended. Blood urea nitrogen (BUN)/cr eatinine ratioOrdered By: Royer Reagan on 07-04-2024 Urea nitrogen/Creatinine [Mass ratio] 22.4 mg/mg High 10-20 [facility] Carbon dioxide measurementOr dered By: Royer Reagan on 07-04-2024 CO2 [Moles/Vol] 27.0 mmol/L 21.0-32.0 [facility] Chloride measurementOrdered By: Royer Reagan on 07-04-2024 Chloride [Moles/Vol] 102 mmol/L 98-107 [facility] Erythrocyte distribution wid th (RBC) [Ratio]Ordered By: Royer Reagan on 07-04-2024 Erythrocyte distribution width (RBC) [Entitic vol] 55.4 fL High 35.1-43.9 [facility] Erythrocyte distribution wid th ratioOrdered By: Royer Reagan on 07-04-2024 Erythrocyte distribution width (RBC) [Ratio] 14.6 % 11.6-14.6 [facility] Estimated glomerular filtrat ion rate (GFR) AmericanOrdered By: Royer Reagan on 07-04-2024 Estimated GFR (MDRD) Amer 76 mL/min >60 [facility] Comment on above: GFR Calc Glomerular filtration rate ( GFR) estimationOrdered By: Royer Reagan on 07-04-2024 Estimated GFR (MDRD) Non-Af Amer 63 mL/min >60 [facility] Comment on above: Non- GFR Calc Glucose measurementOrdered B y: Royer Reagan on 07-04-2024 Glucose [Mass/Vol] 143 mg/dL High 74-106 [facility] Comment on above: Fasting Glucose resu lt greater than or equal to 126 mg/dL suggests DIABETES MELLITUS per A.D.A. criteria. Hematocrit Auto (Bld) [Volum e fraction]Ordered By: Royer Reagan on 07-04-2024 Hematocrit (Bld) [Volume fraction] 47.0 % 37-47 [facility] Hemoglobin measurementOrdere d By: Royer Reagan on 07-04-2024 Hemoglobin (Bld) [Mass/Vol] 14.4 g/dL 12.0-15.0 [facility] Laboratory - Chemistry and C hemistry - challengeOrdered By: Royer Reagan on 07-04-2024 AST [Catalytic activity/Vol] 20 U/L 15-37 [facility] MCV (mean corpuscular volume ) determinationOrdered By: Royer Reagan on 07-04-2024 MCV (RBC) [Entitic vol] 102.8 fL High 81-99 [facility] Mean corpuscular hemoglobin (MCH) determinationOrdered By: Royer Reagan on 07-04-2024 MCH (RBC) [Entitic mass] 31.5 pg 27.0-32.0 [facility] Mean corpuscular hemoglobin concentration (MCHC) determinationOrdered By: Royer Reagan on 07-04-2024 MCHC (RBC) [Mass/Vol] 30.6 g/dL Low 32-36 [facility] Mean platelet volume determi nationOrdered By: Royer Reagan on 07-04-2024 Platelet mean volume (Bld) [Entitic vol] 10.2 fL 6.2-12.0 [facility] Platelet countOrdered By: Adam Reagan on 07-04-2024 Platelets (Bld) [#/Vol] 221 10*3/uL 150-450 [facility] Potassium measurementOrdered By: Royer Reagan on 07-04-2024 Potassium [Moles/Vol] 4.2 mmol/L 3.5-5.1 [facility] RBC Auto (Bld) [#/Vol]Ordere d By: Royer Reagan on 07-04-2024 RBC (Bld) [#/Vol] 4.57 10*6/uL 4.2-5.4 [facility] Serum anion gap measurementO rdered By: Royer Reagan on 07-04-2024 Anion gap [Moles/Vol] 7 mmol/L 5-15 [facility] Serum globulin measurementOr dered By: Royer Reagan on 07-04-2024 Globulin (S) [Mass/Vol] 4.5 g/dL High 2.2-4.2 [facility] Serum or plasma alanine leung otransferase (ALT) measurementOrdered By: Royer Reagan on 07-04-2024 ALT [Catalytic activity/Vol] 23 U/L 13-56 [facility] Serum or plasma albumin tammie urement (mass/volume)Ordered By: Royer Reagan on 07-04-2024 Albumin [Mass/Vol] 3.3 g/dL 3.2-5.0 [facility] Serum or plasma alkaline rosey sphatase measurementOrdered By: Royer Reagan on 07-04-2024 ALP [Catalytic activity/Vol] 89 U/L 45-117 [facility] Serum or plasma calcium tammie urement (mass/volume)Ordered By: Royer Reagan on 07-04-2024 Calcium [Mass/Vol] 8.6 mg/dL 8.5-10.1 [facility] Serum or plasma creatinine m easurement (mass/volume)Ordered By: Royer Reagan on 07-04-2024 Creatinine [Mass/Vol] 0.94 mg/dL 0.55-1.02 [facility] Comment on above: The validity of the calculated GFR & GFRAA in patients over 70 years has not been determined. Clinical correlation is essential. Serum or plasma urea nitroge n measurement (mass/volume)Ordered By: Royer Reagan on 07-04-2024 Urea nitrogen [Mass/Vol] 21 mg/dL High 7-18 [facility] Sodium levelOrdered By: Ismael Reagan on 07-04-2024 Sodium [Moles/Vol] 136 mmol/L 136-145 [facility] Total proteinOrdered By: Ori Reagan on 07-04-2024 Protein [Mass/Vol] 7.8 g/dL 6.4-8.2 [facility] White blood cell (WBC) count Ordered By: Royer Reagan on 07-04-2024 WBC (Bld) [#/Vol] 6.8 10*3/uL 4.4-11.0 [facility] Albumin to globulin ratioOrd ered By: Ender Oates on 05-11-2024 Albumin/Globulin [Mass ratio] 0.8 {ratio} Low 0.9-2.4 [facility] Bilirubin, totalOrdered By: Ender Oates on 05-11-2024 Bilirubin [Mass/Vol] 0.40 mg/dL 0.20-1.00 [facility] Comment on above: For patients on eltr ombopag therapy, use of Dimension [place] TBIL is not recommended. Blood urea nitrogen (BUN)/cr eatinine ratioOrdered By: Ender Oates on 05-11-2024 Urea nitrogen/Creatinine [Mass ratio] 32.1 mg/mg High 10-20 [facility] Carbon dioxide measurementOr dered By: Ender Oates on 05-11-2024 CO2 [Moles/Vol] 29.0 mmol/L 21.0-32.0 [facility] Chloride measurementOrdered By: Ender Oates on 05-11-2024 Chloride [Moles/Vol] 108 mmol/L High 98-107 [facility] Erythrocyte distribution wid th (RBC) [Ratio]Ordered By: Ender Oates on 05-11-2024 Erythrocyte distribution width (RBC) [Entitic vol] 59.7 fL High 35.1-43.9 [facility] Erythrocyte distribution wid th ratioOrdered By: Ender Oates on 05-11-2024 Erythrocyte distribution width (RBC) [Ratio] 15.8 % High 11.6-14.6 [facility] Estimated glomerular filtrat ion rate (GFR) AmericanOrdered By: Ender Oates on 05-11-2024 Estimated GFR (MDRD) Amer 95 mL/min >60 [facility] Comment on above: GFR Calc Glomerular filtration rate ( GFR) estimationOrdered By: Ender Oates on 05-11-2024 Estimated GFR (MDRD) Non-Af Amer 78 mL/min >60 [facility] Comment on above: Non- GFR Calc Glucose measurementOrdered B y: Ender Oates on 05-11-2024 Glucose [Mass/Vol] 109 mg/dL High 74-106 [facility] Comment on above: Fasting Glucose resu lt from 100 to 125 mg/dL suggests IMPAIRED HOMEOSTASIS per A.D.A. criteria. Hematocrit Auto (Bld) [Volum e fraction]Ordered By: Ender Oates on 05-11-2024 Hematocrit (Bld) [Volume fraction] 43.3 % 37-47 [facility] Hemoglobin measurementOrdere d By: Ender Oates on 05-11-2024 Hemoglobin (Bld) [Mass/Vol] 13.4 g/dL 12.0-15.0 [facility] Laboratory - Chemistry and C hemistry - challengeOrdered By: Ender Oates on 05-11-2024 AST [Catalytic activity/Vol] 18 U/L 15-37 [facility] Comment on above: Moderate Hemolysis, Result may be falsely increased. MCV (mean corpuscular volume ) determinationOrdered By: Ender Oates on 05-11-2024 MCV (RBC) [Entitic vol] 102.6 fL High 81-99 [facility] Mean corpuscular hemoglobin (MCH) determinationOrdered By: Ender Oates on 05-11-2024 MCH (RBC) [Entitic mass] 31.8 pg 27.0-32.0 [facility] Mean corpuscular hemoglobin concentration (MCHC) determinationOrdered By: Ender Oates on 05-11-2024 MCHC (RBC) [Mass/Vol] 30.9 g/dL Low 32-36 [facility] Mean platelet volume determi nationOrdered By: Ender Oates on 05-11-2024 Platelet mean volume (Bld) [Entitic vol] 10.0 fL 6.2-12.0 [facility] Platelet countOrdered By: Donnie Oates on 05-11-2024 Platelets (Bld) [#/Vol] 174 10*3/uL 150-450 [facility] Potassium measurementOrdered By: Ender Oates on 05-11-2024 Potassium [Moles/Vol] 4.6 mmol/L 3.5-5.1 [facility] Comment on above: Moderate Hemolysis, Result may be falsely increased. RBC Auto (Bld) [#/Vol]Ordere d By: Ender Oates on 05-11-2024 RBC (Bld) [#/Vol] 4.22 10*6/uL 4.2-5.4 [facility] Serum anion gap measurementO rdered By: Ender Oates on 05-11-2024 Anion gap [Moles/Vol] 2 mmol/L Low 5-15 [facility] Serum globulin measurementOr dered By: Ender Oates on 05-11-2024 Globulin (S) [Mass/Vol] 3.7 g/dL 2.2-4.2 [facility] Serum or plasma alanine leung otransferase (ALT) measurementOrdered By: Ender Oates on 05-11-2024 ALT [Catalytic activity/Vol] 20 U/L 13-56 [facility] Serum or plasma albumin tammie urement (mass/volume)Ordered By: Ender Oates on 05-11-2024 Albumin [Mass/Vol] 2.8 g/dL Low 3.2-5.0 [facility] Serum or plasma alkaline rosey sphatase measurementOrdered By: Ender Oates on 05-11-2024 ALP [Catalytic activity/Vol] 84 U/L 45-117 [facility] Serum or plasma calcium tammei urement (mass/volume)Ordered By: Ender Oates on 05-11-2024 Calcium [Mass/Vol] 8.9 mg/dL 8.5-10.1 [facility] Serum or plasma creatinine m easurement (mass/volume)Ordered By: Ender Oates on 05-11-2024 Creatinine [Mass/Vol] 0.78 mg/dL 0.55-1.02 [facility] Comment on above: The validity of the calculated GFR & GFRAA in patients over 70 years has not been determined. Clinical correlation is essential. Serum or plasma urea nitroge n measurement (mass/volume)Ordered By: Ender Oates on 05-11-2024 Urea nitrogen [Mass/Vol] 25 mg/dL High 7-18 [facility] Sodium levelOrdered By: Jimbo Oates on 05-11-2024 Sodium [Moles/Vol] 139 mmol/L 136-145 [facility] Total proteinOrdered By: Ronaldo Oates on 05-11-2024 Protein [Mass/Vol] 6.5 g/dL 6.4-8.2 [facility] White blood cell (WBC) count Ordered By: Ender Oates on 05-11-2024 WBC (Bld) [#/Vol] 6.0 10*3/uL 4.4-11.0 [facility] CNPNon 04-12-2024 CNPN Telephone (FPWADS) CHARLIE NGUYEN ([id number]) 1955 F CHT Date Time Provider Department 04/12/24 MORENO OATES FPWADOREEN During your visit today, we recorded the following information about you: Fadumo Rahman LPN 04/12/2024 10:33 AM Signed Received from [facility]. Placed in provider's inbox for review. Route to PR for scanning. Allergies As of Date: 04/12/2024 [...] Reason for Visit: Received Outside Medical Records [3450] Cmt: [facility] 04/11/2024 Order(s):CBC [[id number]] Order #: [id number] CMP (EXTERNAL) [[id number]] Order #: [id number] Prescriptions as of 04/12/2024 - oxyCODONE-acetaminoph en [...] encounter *04/20/201704/02 (more content not included)... Normal [facility] 04-11-2024 Erythrocyte distribution width (RBC) [Ratio] 15.9 % Abnormal 11.7 - 15.0 % [facility] Hematocrit (Bld) [Volume fraction] 47.1 % Abnormal 33 - 42 % [facility] Hemoglobin (Bld) [Mass/Vol] 15.2 g/dL 14 - 16.5 g/dL [facility] MCH (RBC) [Entitic mass] 32.1 pG 27 - 34 pG [facility] MCHC 32.3 % 32 - 36 % [facility] MCV (RBC) [Entitic vol] 99.4 fL 80 - 100 fL [facility] Platelet mean volume (Bld) [Entitic vol] 10.3 fL 7.4 - 10.4 fL [facility] Platelets (Bld) [#/Vol] 191 10*3/uL [facility] RBC (Bld) [#/Vol] 4.74 10*6/uL [facility] RDW-SD 58.9 [facility] WBC (Bld) [#/Vol] 7.2 10*3/uL [facility] CMP (EXTERNAL)on 04-11-2024 Albumin [Mass/Vol] 3.1 g/dL Abnormal [facility] Alk Phos Total 81 U/L 45 - 117 U/L [facility] ALT [Catalytic activity/Vol] 19 U/L 12 - 78 U/L [facility] AST [Catalytic activity/Vol] 22 U/L 8 - 37 U/L [facility] Bili Total 0.50 mg/dL 0.2 - 1 mg/dL [facility] Calcium [Mass/Vol] 8.4 mg/dL Abnormal 8.5 - 10. 1 mg/dL [facility] Chloride [Moles/Vol] 109 mmol/L Abnormal [facility] CO2 [Moles/Vol] 24 mmol/L [facility] Creatinine [Mass/Vol] 0.83 mg/dL [facility] GFR 73 mL/MIN [facility] GFR AFR AMER 88 mL/MIN [facility] Glucose [Mass/Vol] 112 mg/dL Abnormal [facility] Potassium [Moles/Vol] 4.2 mmol/L 3.5 - 5.1 mmol/L [facility] Protein [Mass/Vol] 7.4 g/dL [facility] Sodium [Moles/Vol] 139 mmol/L 136 - 145 mmol/L [facility] Urea nitrogen [Mass/Vol] 22 mg/dL Abnormal [facility] No Panel Informationon 04-11 Interpretation and review of laboratory results Abnormal [facility] CNPNon 03-17-2024 CNPN Telephone (SUSIEcometricaDOREEN) CHARLIE NGUYEN ([id number]) 1955 F T Date Time Provider Department 03/17/24 MORENO OATES During your visit today, we recorded the following information about you: Roderick Gaviria LPN 03/17/2024 8:43 AM Signed Received orders from [facility]. Placed in provider's inbox for review. Route to PR fax Allergies As of Date: 03/17/2024 Noted [...] - Fully Assessed Reason for Visit: Orders [[id number]] Cmt: [place] [facility] Prescriptions as of 03/17/2024 [...] S/P revision (more content not included)... Normal [facility] 03-10-2024 BENJAMINN Telephone (FPWADS) PATRICKCHARLIE ([id number]) 1955 F T Date Time Provider Department 03/10/24 MORENO OATES [employer] During your visit today, we recorded the following information about you: Roderick Gaviria LPN 03/10/2024 5:23 PM Signed Received outside lab results from [facility]. Placed in provider's inbox for review. [...] for Visit: Outside Labs Results [437] Cmt: [facility] Prescriptions as of 03/10/2024 - oxyCODONE-acetaminoph [...] 07/08/2017 S/P (more content not included)... Normal [facility] 12-29-2023 CARSON Telephone (FPWADS) CHARLIE NGUYEN ([id number]) 1955 F T Date Time Provider Department 12/29/23 MORENO OATES During your visit today, we recorded the following information about you: Natalia Lewis Hoda 12/29/2023 5:02 PM Signed Charlie is calling Moreno Oates MD today [facility], Nurse from [facility] called to request this medication, not on current list: Disp Refills Start End diazePAM (VALIUM) 5 mg tablet 60 tablet 0 11/27/2023 12/27/2023 Sig: Take 1 tablet by mouth two times a day for 30 days. Sent to pharmacy as: diazePAM (VALIUM) 5 mg tablet Class: Normal Route: ORAL Order: [id number] E-Prescribing Status: Receipt confirmed by pharmacy (11/27/2023 2:31 PM EDT) Please send to [facility]. Patient has been identified by name and birthdate. Duration of symptoms: N/A Was an appointment scheduled: No Closing statement: Results or non-symptom based questions: Thank you for calling [facility], your call will be returned within the next business day. Hoda [facility]ss Allergies As of Date: 12/29/2023 Noted [...] MS (multip (more content not included)... Normal [facility] CHARLIE NGUYEN ([id number]) 1955 F T Date Time Provider Department 11/27/23 MORENO OATES During your visit today, we recorded the following information about you: Moreno Oates MD 11/27/2023 2:31 PM Signed Pt at [facility]. The following approved medication requests have been [...] [T84.53XD] Chronic anxiety [F41.9] MS (multiple sclerosis) ([facility]) [G35] Daily headache [R51.9] Order(s):oxyCODONE-ac etaminophen (PERCOCET) [...] - polye (more content not included)... Normal [facility]10-2023 [facility]FM[facility]) CHARLIE NGUYEN ([id number]) 1955 F [facility] Date Time Provider Department 11/10/23 MORENO OATES WADS During your visit today, we recorded the [...] Reason for Visit: Received Outside Medical Records [2423] Cmt: [facility] 11/09/2023 Order(s):CMP (EXTERNAL) [[id number]] Order #: [id number] CBC [[id number]] Order #: [id number] Prescriptions as of 11/10/2023 - pregabalin (LYRICA) [...] S/P iván (more content not included)... Normal [facility]Con 11-09-2023 Erythrocyte distribution width (RBC) [Ratio] 14.4 % 11.7 - 15.0 % [facility] Hematocrit (Bld) [Volume fraction] 49.8 % Abnormal 35 - 47 % [facility] Hemoglobin (Bld) [Mass/Vol] 15.4 g/dL [facility] MCH (RBC) [Entitic mass] 32.3 pG 27 - 34 pG [facility] MCHC (RBC) [Mass/Vol] 30.9 g/dL Abnormal 33 - 37 g/dL [facility] MCV (RBC) [Entitic vol] 104.4 fL Abnormal 80 - 100 fL [facility] Platelet mean volume (Bld) [Entitic vol] 10.4 fL 7.4 - 10.4 fL [facility] Platelets (Bld) [#/Vol] 222 10*3/uL [facility] RBC (Bld) [#/Vol] 4.77 10*6/uL [facility] RDW-SD 55.9 [facility] WBC (Bld) [#/Vol] 6.9 10*3/uL [facility] CMP (EXTERNAL)Ordered By: Angeline Rahman on 11-09-2023 Albumin [Mass/Vol] 3.3 g/dL [facility] Alk Phos Total 102 U/L 45 - 117 U/L [facility] ALT [Catalytic activity/Vol] 19 U/L 12 - 78 U/L [facility] AST [Catalytic activity/Vol] 24 U/L 8 - 37 U/L [facility] Bili Total 0.50 mg/dL 0.2 - 1 mg/dL [facility] Calcium [Mass/Vol] 9 mg/dL 8.5 - 10. 1 mg/dL [facility] Chloride [Moles/Vol] 106 mmol/L [facility] CO2 [Moles/Vol] 27 mmol/L [facility] Creatinine [Mass/Vol] 0.87 mg/dL [facility] GFR 69 mL/MIN [facility] GFR AFR AMER 83 mL/MIN [facility] Glucose [Mass/Vol] 119 mg/dL Abnormal [facility] Potassium [Moles/Vol] 4.4 mmol/L 3.5 - 5.1 mmol/L [facility] Protein [Mass/Vol] 7.8 g/dL [facility] Urea nitrogen [Mass/Vol] 19 mg/dL Abnormal [facility] No Panel InformationOrdered By: Fadumo Rahman on 11-09-2023 Interpretation and review of laboratory results Abnormal [facility] CNPNon 10-12-2023 BENJAMINN Telephone (MILY) CHARLIE NGUYEN ([id number]) 1955 F [facility] Date Time Provider Department 10/12/23 MORENO OATES During your visit today, we recorded the following information about you: Roderick Gaviria LPN 10/12/2023 4:53 PM Signed Received lab results from [facility]. Placed in provider's inbox for review. [...] Assessed Reason for Visit: Outside Lab Results [874] Cmt: [facility] 10/12/23 Prescriptions as of 10/12/2023 - [...] S/P re (more content not included)... Normal [facility] 09-11-2023 CNPN Telephone (FPWADS) CHARLIE NGUYEN ([id number]) 1955 F [facility] Date Time Provider Department 09/11/23 MORENO [...] MORENO OATES Pharmacy Information [facility] [address] [place] [address] Moreno Oates MD Allergies As of Date: [...] Gastroesophageal refl (more content not included)... Normal [facility] 08-11-2023 CNPN Telephone (FPWADS) PATRICKCHARLIE Marcos ([id number]) 1955 F T Date Time Provider Department 08/11/23 MORENO OATESDS During your visit today, we recorded the following information about you: Roderick Gaviria LPN 08/11/2023 8:34 AM Signed Received lab results from [facility]/ [facility]. Placed in provider's inbox for review. Route to PR scanning Allergies As of Date: 08/11/2023 Noted [...] for Visit: Outside Labs Results [437] Cmt: [place]/ [facility] Prescriptions as of 08/11/2023 - oxyCODONE-acetaminoph [...] [M25.561] 06/25/2017 (more content not included)... Normal [facility] Basophil percentageOrdered B y: Ender Oates on 08-10-2023 Bilirubin [Mass/Vol] 0.40 mg/dL 0.20-1.00 [facility] Comment on above: For patients on eltr ombopag therapy, use of Dimension [place] TBIL is not recommended. Chloride [Moles/Vol] 104 mmol/L 98-107 [facility] Cholesterol [Mass/Vol] 174 mg/dL <200 [facility] Comment on above: <200 mg/dL Desirable 200-240 mg/dL Borderline >240 mg/dL High Risk Glucose [Mass/Vol] 102 mg/dL 74-106 [facility] Comment on above: Fasting Glucose resu lt from 100 to 125 mg/dL suggests IMPAIRED HOMEOSTASIS per A.D.A. criteria. Hemoglobin (Bld) [Mass/Vol] 14.9 g/dL 12.0-15.0 [facility] Potassium [Moles/Vol] 4.2 mmol/L 3.5-5.1 [facility] Protein [Mass/Vol] 7.5 g/dL 6.4-8.2 [facility] Sodium [Moles/Vol] 139 mmol/L 136-145 [facility] Triglyceride [Mass/Vol] 265 mg/dL <199 [facility] Comment on above: The drugs N-Acetylcy steine and Metamizole may falsely depress this assay.Serum Triglycerides Reference Interval Normal <150 mg/dL Borderline high 150 - 199 mg/dL High 200 - 499 mg/dL Very High > or = 500 mg/dL WBC (Bld) [#/Vol] 7.7 10*3/uL 4.4-11.0 [facility] Determination of erythrocyte mean corpuscular volume (MCV)Ordered By: Ender Oates on 08-10-2023 MCV (RBC) [Entitic vol] 100.2 fL 81-99 [facility] Erythrocyte distribution wid th ratioOrdered By: Ender Oates on 08-10-2023 Erythrocyte distribution width (RBC) [Ratio] 14.6 % 11.6-14.6 [facility] Erythrocyte distribution wid th standard deviationOrdered By: Ender Oates on 08-10-2023 Erythrocyte distribution width (RBC) [Entitic vol] 54.9 fL 35.1-43.9 [facility] Hematocrit Auto (Bld) [Volum e fraction]Ordered By: Ender Oates on 08-10-2023 Hematocrit (Bld) [Volume fraction] 46.5 % 37-47 [facility] - Chemistry and C hemistry - challengeOrdered By: Ender Oates on 08-10-2023 Albumin/Globulin [Mass ratio] 0.7 {ratio} 0.9-2.4 [facility] ALP [Catalytic activity/Vol] 93 U/L 45-117 [facility] ALT [Catalytic activity/Vol] 18 U/L 13-56 [facility] Cholesterol in HDL [Mass/Vol] 59 mg/dL >40 [facility] Comment on above: The drugs N-Acetylcy steine and Metamizole may falsely depress this assay. Reference Range HDL <40 mg/dL Low HDL Cholesterol HDL >or= 60 mg/dL High HDL Cholesterol Cholesterol in LDL [Mass/Vol] 62 mg/dL 0-130 [facility] CO2 [Moles/Vol] 28.0 mmol/L 21.0-32.0 [facility] Globulin (S) [Mass/Vol] 4.3 g/dL 2.2-4.2 [facility] Urea nitrogen/Creatinine [Mass ratio] 26.5 mg/mg 10-20 [facility] - Hematology and Cell countsOrdered By: Ender aOtes on 08-10-2023 MCH (RBC) [Entitic mass] 32.1 pg 27.0-32.0 [facility] MCHC (RBC) [Mass/Vol] 32.0 g/dL 32-36 [facility] Platelet mean volume (Bld) [Entitic vol] 10.2 fL 6.2-12.0 [facility] Platelets (Bld) [#/Vol] 237 10*3/uL 150-450 [facility] No Panel InformationOrdered By: Ender Oates on 08-10-2023 Estimated GFR (MDRD) Amer 62 mL/min >60 [facility] Comment on above: GFR Calc Estimated GFR (MDRD) Non-Af Amer 51 mL/min >60 [facility] Comment on above: Non- GFR Calc VLDL Cholesterol 53 mg/dL 5-40 [facility] RBC Auto (Bld) [#/Vol]Ordere d By: Ender Oates on 08-10-2023 RBC (Bld) [#/Vol] 4.64 10*6/uL 4.2-5.4 [facility] Serum or plasma calcium tammie urement (mass/volume)Ordered By: Ender Oates on 08-10-2023 Calcium [Mass/Vol] 9.6 mg/dL 8.5-10.1 [facility] Serum or plasma creatinine m easurement (mass/volume)Ordered By: Ender Oates on 08-10-2023 Creatinine [Mass/Vol] 1.13 mg/dL 0.55-1.02 [facility] Comment on above: The validity of the calculated GFR & GFRAA in patients over 70 years has not been determined. Clinical correlation is essential. Serum or plasma urea nitroge n measurement (mass/volume)Ordered By: Ender Oates on 08-10-2023 Urea nitrogen [Mass/Vol] 30 mg/dL 7-18 [facility] Thin prep Papanicolaou smear with manual screeningOrdered By: Ender Oates on 08-10-2023 Thin prep Papanicolaou smear with manual screening 3.2 g/dL 3.2-5.0 [facility] Thin prep Papanicolaou smear with manual screening 15 U/L 15-37 [facility] Thin prep Papanicolaou smear with manual screening 7 5-15 [facility] Basophil percentageOrdered B y: Ender Oates on 07-13-2023 Bilirubin [Mass/Vol] 0.70 mg/dL 0.20-1.00 [facility] Comment on above: For patients on eltr ombopag therapy, use of Dimension [place] TBIL is not recommended. Chloride [Moles/Vol] 108 mmol/L 98-107 [facility] Glucose [Mass/Vol] 91 mg/dL 74-106 [facility] Hemoglobin (Bld) [Mass/Vol] 14.8 g/dL 12.0-15.0 [facility] Potassium [Moles/Vol] 4.7 mmol/L 3.5-5.1 [facility] Protein [Mass/Vol] 7.6 g/dL 6.4-8.2 [facility] Sodium [Moles/Vol] 141 mmol/L 136-145 [facility] WBC (Bld) [#/Vol] 5.6 10*3/uL 4.4-11.0 [facility] Determination of erythrocyte mean corpuscular volume (MCV)Ordered By: Ender Oates on 07-13-2023 MCV (RBC) [Entitic vol] 100.9 fL 81-99 [facility] Erythrocyte distribution wid th ratioOrdered By: Ender Oates on 07-13-2023 Erythrocyte distribution width (RBC) [Ratio] 15.4 % 11.6-14.6 [facility] Erythrocyte distribution wid th standard deviationOrdered By: Ender Oates on 07-13-2023 Erythrocyte distribution width (RBC) [Entitic vol] 57.7 fL 35.1-43.9 [facility] Hematocrit Auto (Bld) [Volum e fraction]Ordered By: Ender Oates on 07-13-2023 Hematocrit (Bld) [Volume fraction] 47.1 % 37-47 [facility] - Chemistry and C hemistry - challengeOrdered By: Ender Oates on 07-13-2023 Albumin/Globulin [Mass ratio] 0.8 {ratio} 0.9-2.4 [facility] ALP [Catalytic activity/Vol] 84 U/L 45-117 [facility] ALT [Catalytic activity/Vol] 21 U/L 13-56 [facility] CO2 [Moles/Vol] 27.0 mmol/L 21.0-32.0 [facility] Globulin (S) [Mass/Vol] 4.3 g/dL 2.2-4.2 [facility] Urea nitrogen/Creatinine [Mass ratio] 29.3 mg/mg 10-20 [facility] - Hematology and Cell countsOrdered By: Ender Oates on 07-13-2023 MCH (RBC) [Entitic mass] 31.7 pg 27.0-32.0 [facility] MCHC (RBC) [Mass/Vol] 31.4 g/dL 32-36 [facility] Platelet mean volume (Bld) [Entitic vol] 10.6 fL 6.2-12.0 [facility] Platelets (Bld) [#/Vol] 200 10*3/uL 150-450 [facility] No Panel InformationOrdered By: Ender Oates on 07-13-2023 Estimated GFR (MDRD) Amer 94 mL/min >60 [facility] Comment on above: GFR Calc Estimated GFR (MDRD) Non-Af Amer 78 mL/min >60 [facility] Comment on above: Non- GFR Calc RBC Auto (Bld) [#/Vol]Ordere d By: Ender Oates on 07-13-2023 RBC (Bld) [#/Vol] 4.67 10*6/uL 4.2-5.4 [facility] Serum or plasma calcium tammie urement (mass/volume)Ordered By: Ender Oates on 07-13-2023 Calcium [Mass/Vol] 9.2 mg/dL 8.5-10.1 [facility] Serum or plasma creatinine m easurement (mass/volume)Ordered By: Ender Oates on 07-13-2023 Creatinine [Mass/Vol] 0.78 mg/dL 0.55-1.02 [facility] Comment on above: The validity of the calculated GFR & GFRAA in patients over 70 years has not been determined. Clinical correlation is essential. Serum or plasma urea nitroge n measurement (mass/volume)Ordered By: Ender Oates on 07-13-2023 Urea nitrogen [Mass/Vol] 23 mg/dL 7-18 [facility] Thin prep Papanicolaou smear with manual screeningOrdered By: Ender Oates on 07-13-2023 Thin prep Papanicolaou smear with manual screening 3.3 g/dL 3.2-5.0 [facility] Thin prep Papanicolaou smear with manual screening 18 U/L 15-37 [facility] Thin prep Papanicolaou smear with manual screening 6 5-15 [facility] Basophil percentageOrdered B y: Ender Oates on 06-08-2023 Bilirubin [Mass/Vol] 0.40 mg/dL 0.20-1.00 [facility] Comment on above: For patients on eltr ombopag therapy, use of Dimension [place] TBIL is not recommended. Chloride [Moles/Vol] 105 mmol/L 98-107 [facility] Glucose [Mass/Vol] 90 mg/dL 74-106 [facility] Potassium [Moles/Vol] 4.8 mmol/L 3.5-5.1 [facility] Protein [Mass/Vol] 7.3 g/dL 6.4-8.2 [facility] Sodium [Moles/Vol] 138 mmol/L 136-145 [facility] WBC (Bld) [#/Vol] 6.9 10*3/uL 4.4-11.0 [facility] Blood erythrocytes count (nu mber/volume)Ordered By: Ender Oates on 06-08-2023 RBC (Bld) [#/Vol] 4.60 10*6/uL 4.2-5.4 [facility] Blood hemoglobin measurement (mass/volume)Ordered By: Ender Oates on 06-08-2023 Hemoglobin (Bld) [Mass/Vol] 14.4 g/dL 12.0-15.0 [facility] Blood platelet mean volumeOr dered By: Ender Oates on 06-08-2023 Platelet mean volume (Bld) [Entitic vol] 10.9 fL 6.2-12.0 [facility] Determination of erythrocyte mean corpuscular volume (MCV)Ordered By: Ender Oates on 06-08-2023 MCV (RBC) [Entitic vol] 103.0 fL 81-99 [facility] Hematocrit Auto (Bld) [Volum e fraction]Ordered By: Ender Oates on 06-08-2023 Hematocrit (Bld) [Volume fraction] 47.4 % 37-47 [facility] - Chemistry and C hemistry - challengeOrdered By: Ender Oates on 06-08-2023 ALP [Catalytic activity/Vol] 90 U/L 45-117 [facility] ALT [Catalytic activity/Vol] 17 U/L 13-56 [facility] CO2 [Moles/Vol] 30.0 mmol/L 21.0-32.0 [facility] Globulin (S) [Mass/Vol] 4.2 g/dL 2.2-4.2 [facility] Urea nitrogen/Creatinine [Mass ratio] 30.5 mg/mg 10-20 [facility] - Hematology and Cell countsOrdered By: Ender Oates on 06-08-2023 Erythrocyte distribution width (RBC) [Entitic vol] 58.5 fL 35.1-43.9 [facility] Erythrocyte distribution width (RBC) [Ratio] 15.4 % 11.6-14.6 [facility] MCH (RBC) [Entitic mass] 31.3 pg 27.0-32.0 [facility] MCHC Auto (RBC) [Mass/Vol]Or dered By: Ender Oates on 06-08-2023 MCHC (RBC) [Mass/Vol] 30.4 g/dL 32-36 [facility] No Panel InformationOrdered By: Ender Oates on 06-08-2023 Estimated GFR (MDRD) Amer 67 mL/min >60 [facility] Comment on above: GFR Calc Estimated GFR (MDRD) Non-Af Amer 56 mL/min >60 [facility] Comment on above: Non- GFR Calc Platelets bldOrdered By: Ronaldo Oates on 06-08-2023 Platelets (Bld) [#/Vol] 216 10*3/uL 150-450 [facility] Serum or plasma albumin tammie urement (mass/volume)Ordered By: Ender Oates on 06-08-2023 Albumin [Mass/Vol] 3.1 g/dL 3.2-5.0 [facility] Serum or plasma albumin/glob ulin mass ratioOrdered By: Ender Oates on 06-08-2023 Albumin/Globulin [Mass ratio] 0.7 {ratio} 0.9-2.4 [facility] Serum or plasma calcium tammie urement (mass/volume)Ordered By: Ender Oates on 06-08-2023 Calcium [Mass/Vol] 9.1 mg/dL 8.5-10.1 [facility] Serum or plasma creatinine m easurement (mass/volume)Ordered By: Ender Oates on 06-08-2023 Creatinine [Mass/Vol] 1.05 mg/dL 0.55-1.02 [facility] Comment on above: The validity of the calculated GFR & GFRAA in patients over 70 years has not been determined. Clinical correlation is essential. Serum or plasma urea nitroge n measurement (mass/volume)Ordered By: Ender Oates on 06-08-2023 Urea nitrogen [Mass/Vol] 32 mg/dL 7-18 [facility] Thin prep Papanicolaou smear with manual screeningOrdered By: Ender Oates on 06-08-2023 Thin prep Papanicolaou smear with manual screening 16 U/L 15-37 [facility] Thin prep Papanicolaou smear with manual screening 3 5-15 [facility] Automated blood hematocrit ( percentage)Ordered By: Ender Oates on 05-11-2023 Hematocrit (Bld) [Volume fraction] 41.8 % 37-47 [facility] Basophil percentageOrdered B y: Ender Oates on 05-11-2023 Bilirubin [Mass/Vol] 0.30 mg/dL 0.20-1.00 [facility] Comment on above: For patients on eltr ombopag therapy, use of Dimension [place] TBIL is not recommended. Chloride [Moles/Vol] 106 mmol/L 98-107 [facility] Glucose [Mass/Vol] 102 mg/dL 74-106 [facility] Comment on above: Fasting Glucose resu lt from 100 to 125 mg/dL suggests IMPAIRED HOMEOSTASIS per A.D.A. criteria. Potassium [Moles/Vol] 3.7 mmol/L 3.5-5.1 [facility] Protein [Mass/Vol] 6.4 g/dL 6.4-8.2 [facility] Sodium [Moles/Vol] 142 mmol/L 136-145 [facility] WBC (Bld) [#/Vol] 7.2 10*3/uL 4.4-11.0 [facility] Blood erythrocytes count (nu mber/volume)Ordered By: Ender Oates on 05-11-2023 RBC (Bld) [#/Vol] 4.15 10*6/uL 4.2-5.4 [facility] Blood hemoglobin measurement (mass/volume)Ordered By: Ender Oates on 05-11-2023 Hemoglobin (Bld) [Mass/Vol] 12.8 g/dL 12.0-15.0 [facility] Blood platelet mean volumeOr dered By: Ender Oates on 05-11-2023 Platelet mean volume (Bld) [Entitic vol] 10.8 fL 6.2-12.0 [facility] CBCon 05-11-2023 Erythrocyte distribution width (RBC) [Ratio] 14.7 % 11.7 - 15.0 % [facility] MCHC (RBC) [Mass/Vol] 31.5 g/dL 31.5 - 35.7 g/dL [facility] Platelet mean volume (Bld) [Entitic vol] 10.8 % 7.3 - 11.1 % [facility] Platelets (Bld) [#/Vol] 217 10*3/uL 140 - 440 K/uL [facility] RDW-SD 57.2 [facility] CMP (EXTERNAL)on 05-11-2023 Alk Phos Total 85 U/L 45 - 117 U/L [facility] Anion gap [Moles/Vol] 5 mmol/L [facility] AST [Catalytic activity/Vol] 19 U/L 8 - 37 U/L [facility] Bili Total 0.30 mg/dL 0.2 - 1 mg/dL [facility] CO2 [Moles/Vol] 31 mmol/L 21 - 32 MEQ/L [facility] GFR AFR AMER 83 mL/MIN [facility] GFR/1.73 sq M.predicted among non-blacks MDRD (S/P/Bld) [Vol rate/Area] 69 mL/min/{1.73_m2} [facility] Determination of erythrocyte mean corpuscular volume (MCV)Ordered By: Ender Oates on 05-11-2023 MCV (RBC) [Entitic vol] 100.7 fL 81-99 [facility] Laboratory - Chemistry and C hemistry - challengeOrdered By: Ender Oates on 05-11-2023 ALP [Catalytic activity/Vol] 85 U/L 45-117 [facility] ALT [Catalytic activity/Vol] 19 U/L 13-56 [facility] CO2 [Moles/Vol] 31.0 mmol/L 21.0-32.0 [facility] Globulin (S) [Mass/Vol] 3.7 g/dL 2.2-4.2 [facility] Urea nitrogen/Creatinine [Mass ratio] 30.9 mg/mg 10-20 [facility] Laboratory - Hematology and Cell countsOrdered By: Endre Oates on 05-11-2023 Erythrocyte distribution width (RBC) [Entitic vol] 57.2 fL 35.1-43.9 [facility] Erythrocyte distribution width (RBC) [Ratio] 15.3 % 11.6-14.6 [facility] MCH (RBC) [Entitic mass] 30.8 pG 27.0-32.0 [facility] MCHC Auto (RBC) [Mass/Vol]Or dered By: Ender Oates on 05-11-2023 MCHC (RBC) [Mass/Vol] 30.6 g/dL 32-36 [facility] No Panel InformationOrdered By: Ender Oates on 05-11-2023 Estimated GFR (MDRD) Amer 83 mL/min >60 [facility] Comment on above: GFR Calc Estimated GFR (MDRD) Non-Af Amer 69 mL/min >60 [facility] Comment on above: Non- GFR Calc Platelets bldOrdered By: Ronaldo Oates on 05-11-2023 Platelets (Bld) [#/Vol] 196 10*3/uL 150-450 [facility] Serum or plasma albumin tammie urement (mass/volume)Ordered By: Ender Oates on 05-11-2023 Albumin [Mass/Vol] 2.7 g/dL 3.2-5.0 [facility] Serum or plasma albumin/glob ulin mass ratioOrdered By: Ender Oates on 05-11-2023 Albumin/Globulin [Mass ratio] 0.7 {ratio} 0.9-2.4 [facility] Serum or plasma calcium tammie urement (mass/volume)Ordered By: Ender Oates on 05-11-2023 Calcium [Mass/Vol] 8.9 mg/dL 8.5-10.1 [facility] Serum or plasma creatinine m easurement (mass/volume)Ordered By: Ender Oates on 05-11-2023 Creatinine [Mass/Vol] 0.88 mg/dL 0.55-1.02 [facility] Comment on above: The validity of the calculated GFR & GFRAA in patients over 70 years has not been determined. Clinical correlation is essential. Serum or plasma urea nitroge n measurement (mass/volume)Ordered By: Ender Oates on 05-11-2023 Urea nitrogen [Mass/Vol] 27 mg/dL 7-18 [facility] Thin prep Papanicolaou smear with manual screeningOrdered By: Ender Oates on 05-11-2023 Thin prep Papanicolaou smear with manual screening 19 U/L 15-37 [facility] Thin prep Papanicolaou smear with manual screening 5 5-15 [facility] BMP - EXTERNALon 04-13-2023 Alk Phos 78 U/L 50 - 136 U/L [facility] Anion gap [Moles/Vol] 5 mmol/L [facility] AST [Catalytic activity/Vol] 25 U/L 39 U/L [facility] Bilirubin, Total. 0.40 [facility] GFR AFR AMER 83 mL/MIN [facility] GFR/1.73 sq M.predicted among non-blacks MDRD (S/P/Bld) [Vol rate/Area] 69 mL/min/{1.73_m2} [facility] Globulin 4.2 [facility] HCO3 (Bld) [Moles/Vol] 26 mmol/L [facility] Basophil percentageOrdered B y: Ender Oates on 04-13-2023 Bilirubin [Mass/Vol] 0.40 mg/dL 0.20-1.00 [facility] Comment on above: For patients on eltr ombopag therapy, use of Dimension [place] TBIL is not recommended. Chloride [Moles/Vol] 108 mmol/L 98-107 [facility] Glucose [Mass/Vol] 98 mg/dL 74-106 [facility] Potassium [Moles/Vol] 4.5 mmol/L 3.5-5.1 [facility] Comment on above: Slight Hemolysis, Re sult may be falsely increased. Protein [Mass/Vol] 7.3 g/dL 6.4-8.2 [facility] Sodium [Moles/Vol] 139 mmol/L 136-145 [facility] WBC (Bld) [#/Vol] 6.2 10*3/uL 4.4-11.0 [facility] Blood erythrocytes count (nu mber/volume)Ordered By: Ender Oates on 04-13-2023 RBC (Bld) [#/Vol] 4.24 10*6/uL 4.2-5.4 [facility] Blood hemoglobin measurement (mass/volume)Ordered By: Ender Oates on 04-13-2023 Hemoglobin (Bld) [Mass/Vol] 13.6 g/dL 12.0-15.0 [facility] Blood platelet mean volumeOr dered By: Ender Oates on 04-13-2023 Platelet mean volume (Bld) [Entitic vol] 10.8 fL 6.2-12.0 [facility] Determination of erythrocyte mean corpuscular volume (MCV)Ordered By: Ender Oates on 04-13-2023 MCV (RBC) [Entitic vol] 101.9 fL 81-99 [facility] Hematocrit Auto (Bld) [Volum e fraction]Ordered By: Ender Oates on 04-13-2023 Hematocrit (Bld) [Volume fraction] 43.2 % 37-47 [facility] Laboratory - Chemistry and C hemistry - challengeOrdered By: Ender aOtes on 04-13-2023 ALP [Catalytic activity/Vol] 78 U/L 45-117 [facility] ALT [Catalytic activity/Vol] 20 U/L 13-56 [facility] CO2 [Moles/Vol] 26.0 mmol/L 21.0-32.0 [facility] Globulin (S) [Mass/Vol] 4.2 g/dL 2.2-4.2 [facility] Urea nitrogen/Creatinine [Mass ratio] 26.3 mg/mg 10-20 [facility] Laboratory - Hematology and Cell countsOrdered By: Ender Oates on 04-13-2023 Erythrocyte distribution width (RBC) [Entitic vol] 55.5 fL 35.1-43.9 [facility] Erythrocyte distribution width (RBC) [Ratio] 14.7 % 11.6-14.6 [facility] MCH (RBC) [Entitic mass] 32.1 pg 27.0-32.0 [facility] MCHC Auto (RBC) [Mass/Vol]Or dered By: Ender Oates on 04-13-2023 MCHC (RBC) [Mass/Vol] 31.5 g/dL 32-36 [facility] No Panel InformationOrdered By: Ender Oates on 04-13-2023 Estimated GFR (MDRD) Amer 83 mL/min >60 [facility] Comment on above: GFR Calc Estimated GFR (MDRD) Non-Af Amer 69 mL/min >60 [facility] Comment on above: Non- GFR Calc Platelets bldOrdered By: Ronaldo Oates on 04-13-2023 Platelets (Bld) [#/Vol] 217 10*3/uL 150-450 [facility] Serum or plasma albumin tammie urement (mass/volume)Ordered By: Ender Oates on 04-13-2023 Albumin [Mass/Vol] 3.1 g/dL 3.2-5.0 [facility] Serum or plasma albumin/glob ulin mass ratioOrdered By: Ender Oates on 04-13-2023 Albumin/Globulin [Mass ratio] 0.7 {ratio} 0.9-2.4 [facility] Serum or plasma calcium tammie urement (mass/volume)Ordered By: Ender Oates on 04-13-2023 Calcium [Mass/Vol] 8.7 mg/dL 8.5-10.1 [facility] Serum or plasma creatinine m easurement (mass/volume)Ordered By: Ender Oates on 04-13-2023 Creatinine [Mass/Vol] 0.88 mg/dL 0.55-1.02 [facility] Comment on above: The validity of the calculated GFR & GFRAA in patients over 70 years has not been determined. Clinical correlation is essential. Serum or plasma urea nitroge n measurement (mass/volume)Ordered By: Ender Oates on 04-13-2023 Urea nitrogen [Mass/Vol] 23 mg/dL 7-18 [facility] Thin prep Papanicolaou smear with manual screeningOrdered By: Ender Oates on 04-13-2023 Thin prep Papanicolaou smear with manual screening 25 U/L 15-37 [facility] Comment on above: Slight Hemolysis, Re sult may be falsely increased. Thin prep Papanicolaou smear with manual screening 5 5-15 [facility] CBC panel Auto (Bld)on 04-06 Erythrocyte distribution width (RBC) [Ratio] 13.9 % 11.7 - 15.0 % [facility] Hematocrit (Bld) [Volume fraction] 43.2 % 35 - 47 % [facility] Hemoglobin (Bld) [Mass/Vol] 13.6 g/dL [facility] MCH (RBC) [Entitic mass] 32.1 pG 27 - 34 pG [facility] MCHC (RBC) [Mass/Vol] 30.6 g/dL Abnormal 31.5 - 35.7 g/dL [facility] Platelet mean volume (Bld) [Entitic vol] 10.8 % Abnormal 7.3 - 11.1 % [facility] Platelets (Bld) [#/Vol] 21.7 10*3/uL Abnormal 150 - 400 k/uL [facility] RBC (Bld) [#/Vol] 4.26 10*6/uL [facility] RDW-SD 54.2 [facility] WBC (Bld) [#/Vol] 6.2 10*3/uL [facility] Basophil percentageOrdered B y: Ender Oates on 03-09-2023 Bilirubin [Mass/Vol] 0.60 mg/dL 0.20-1.00 [facility] Comment on above: For patients on eltr ombopag therapy, use of Dimension [place] TBIL is not recommended. Chloride [Moles/Vol] 106 mmol/L 98-107 [facility] Glucose [Mass/Vol] 105 mg/dL 74-106 [facility] Comment on above: Fasting Glucose resu lt from 100 to 125 mg/dL suggests IMPAIRED HOMEOSTASIS per A.D.A. criteria. Potassium [Moles/Vol] 5.0 mmol/L 3.5-5.1 [facility] Protein [Mass/Vol] 7.1 g/dL 6.4-8.2 [facility] Sodium [Moles/Vol] 139 mmol/L 136-145 [facility] WBC (Bld) [#/Vol] 6.2 10*3/uL 4.4-11.0 [facility] Blood erythrocytes count (nu mber/volume)Ordered By: Ender Oates on 03-09-2023 RBC (Bld) [#/Vol] 4.31 10*6/uL 4.2-5.4 [facility] Blood hemoglobin measurement (mass/volume)Ordered By: Ender Oates on 03-09-2023 Hemoglobin (Bld) [Mass/Vol] 13.7 g/dL 12.0-15.0 [facility] Blood platelet mean volumeOr dered By: Ender Oates on 03-09-2023 Platelet mean volume (Bld) [Entitic vol] 11.4 fL 6.2-12.0 [facility] Determination of erythrocyte mean corpuscular volume (MCV)Ordered By: Ender Oates on 03-09-2023 MCV (RBC) [Entitic vol] 103.7 fL 81-99 [facility] Hematocrit Auto (Bld) [Volum e fraction]Ordered By: Ender Oates on 03-09-2023 Hematocrit (Bld) [Volume fraction] 44.7 % 37-47 [facility] Laboratory - Chemistry and C hemistry - challengeOrdered By: Ender Oates on 03-09-2023 ALP [Catalytic activity/Vol] 94 U/L 45-117 [facility] ALT [Catalytic activity/Vol] 16 U/L 13-56 [facility] CO2 [Moles/Vol] 28.0 mmol/L 21.0-32.0 [facility] Globulin (S) [Mass/Vol] 4.0 g/dL 2.2-4.2 [facility] Urea nitrogen/Creatinine [Mass ratio] 31.3 mg/mg 10-20 [facility] Laboratory - Hematology and Cell countsOrdered By: Ender Oates on 03-09-2023 Erythrocyte distribution width (RBC) [Entitic vol] 54.2 fL 35.1-43.9 [facility] Erythrocyte distribution width (RBC) [Ratio] 13.9 % 11.6-14.6 [facility] MCH (RBC) [Entitic mass] 31.8 pg 27.0-32.0 [facility] MCHC Auto (RBC) [Mass/Vol]Or dered By: Ender Oates on 03-09-2023 MCHC (RBC) [Mass/Vol] 30.6 g/dL 32-36 [facility] No Panel InformationOrdered By: Ender Oates on 03-09-2023 Estimated GFR (MDRD) Amer 75 mL/min >60 [facility] Comment on above: GFR Calc Estimated GFR (MDRD) Non-Af Amer 62 mL/min >60 [facility] Comment on above: Non- GFR Calc Platelets bldOrdered By: Ronaldo Oates on 03-09-2023 Platelets (Bld) [#/Vol] 216 10*3/uL 150-450 [facility] Serum or plasma albumin tammie urement (mass/volume)Ordered By: Ender Oates on 03-09-2023 Albumin [Mass/Vol] 3.1 g/dL 3.2-5.0 [facility] Serum or plasma albumin/glob ulin mass ratioOrdered By: Ender Oates on 03-09-2023 Albumin/Globulin [Mass ratio] 0.8 {ratio} 0.9-2.4 [facility] Serum or plasma calcium tammie urement (mass/volume)Ordered By: Ender Otaes on 03-09-2023 Calcium [Mass/Vol] 8.7 mg/dL 8.5-10.1 [facility] Serum or plasma creatinine m easurement (mass/volume)Ordered By: Ender Oates on 03-09-2023 Creatinine [Mass/Vol] 0.96 mg/dL 0.55-1.02 [facility] Comment on above: The validity of the calculated GFR & GFRAA in patients over 70 years has not been determined. Clinical correlation is essential. Serum or plasma urea nitroge n measurement (mass/volume)Ordered By: Ender Oates on 03-09-2023 Urea nitrogen [Mass/Vol] 30 mg/dL 7-18 [facility] Thin prep Papanicolaou smear with manual screeningOrdered By: Ender Oates on 03-09-2023 Thin prep Papanicolaou smear with manual screening 14 U/L 15-37 [facility] Thin prep Papanicolaou smear with manual screening 5 5-15 [facility] Basophil percentageOrdered B y: Ender Oates on 03-07-2023 Basophil percentage 0-5 SEEN /hpf 0-5 [facility] Bilirubin Test strip Ql (U)O rdered By: Ender Oates on 03-07-2023 Bilirubin Ql (U) Negative Negative [facility] Culture, urineOrdered By: Donnie Oates on 03-07-2023 Bacteria identified Cx Nom (U) Proteus mirabilis [facility] Ketones Test strip Ql (U)Ord ered By: Ender Oates on 03-07-2023 Ketones Ql (U) Negative Negative [facility] Mucus LM Ql (Urine sed)Order ed By: Ender Oates on 03-07-2023 Mucus Ql (Urine sed) 0 SEEN /hpf [facility] Nitrite Test strip Ql (U)Ord ered By: Ender Oates on 03-07-2023 Nitrite Ql (U) Negative Negative [facility] Protein Test strip Ql (U)Ord ered By: Ender Oates on 03-07-2023 Protein Ql (U) Negative Negative [facility] Squamous epithelial cells de tection in urine sediment by light microscopyOrdered By: Ender Oates on 03-07-2023 Epithelial cells.squamous LM Ql (Urine sed) 0-5 SEEN /hpf 5-10 [facility] Urine blood detectionOrdered By: Ender Oates on 03-07-2023 RBC Ql (U) 10 /ul Negative [facility] RBC Ql (U) 0 SEEN /hpf 0-5 [facility] Urine clarityOrdered By: Ronaldo Oates on 03-07-2023 Clarity (U) Clear Clear [facility] Urine color determinationOrd ered By: Ender Oates on 03-07-2023 Color (U) Yellow Yellow [facility] Urine glucose detectionOrder ed By: Ender Oates on 03-07-2023 Glucose Ql (U) Normal mg/dl Normal [facility] Urine leukocyte esterase det ection by dipstickOrdered By: Ender Oates on 03-07-2023 Leukocyte esterase Test strip Ql (U) 100 /ul Negative [facility] Urine pHOrdered By: Ender Oates on 03-07-2023 pH (U) 6.5 [pH] 5.0 - 8.0 [facility] Urine sediment bacteria coun t by microscopy (number/high power field)Ordered By: Ender Oates on 03-07-2023 Bacteria LM.HPF (Urine sed) [#/Area] RARE /hpf None Seen [facility] Urine specific gravity measu rementOrdered By: Ender Oates on 10-07-2023 Specific gravity (U) [Rel density] 1.010 1.002-1.030 [facility] Urobilinogen Auto test strip Ql (U)Ordered By: Ender Oates on 03-07-2023 Urobilinogen Ql (U) Normal mg/dl Normal [facility] Basophil percentageOrdered B y: Ender Oates on 02-09-2023 Bilirubin [Mass/Vol] 0.50 mg/dL 0.20-1.00 [facility] Comment on above: For patients on eltr ombopag therapy, use of Dimension [place] TBIL is not recommended. Chloride [Moles/Vol] 107 mmol/L 98-107 [facility] Cholesterol [Mass/Vol] 121 mg/dL <200 [facility] Comment on above: <200 mg/dL Desirable 200-240 mg/dL Borderline >240 mg/dL High Risk Glucose [Mass/Vol] 87 mg/dL 74-106 [facility] Potassium [Moles/Vol] 4.3 mmol/L 3.5-5.1 [facility] Protein [Mass/Vol] 6.5 g/dL 6.4-8.2 [facility] Sodium [Moles/Vol] 138 mmol/L 136-145 [facility] Triglyceride [Mass/Vol] 81 mg/dL <199 [facility] Comment on above: The drugs N-Acetylcy steine and Metamizole may falsely depress this assay.Serum Triglycerides Reference Interval Normal <150 mg/dL Borderline high 150 - 199 mg/dL High 200 - 499 mg/dL Very High > or = 500 mg/dL WBC (Bld) [#/Vol] 6.3 10*3/uL 4.4-11.0 [facility] Blood erythrocytes count (nu mber/volume)Ordered By: Ender Oates on 02-09-2023 RBC (Bld) [#/Vol] 3.95 10*6/uL 4.2-5.4 [facility] Blood hemoglobin measurement (mass/volume)Ordered By: Ender Oates on 02-09-2023 Hemoglobin (Bld) [Mass/Vol] 12.9 g/dL 12.0-15.0 [facility] Blood platelet mean volumeOr dered By: Ender Oates on 02-09-2023 Platelet mean volume (Bld) [Entitic vol] 11.4 fL 6.2-12.0 [facility] Determination of erythrocyte mean corpuscular volume (MCV)Ordered By: Ender Oates on 02-09-2023 MCV (RBC) [Entitic vol] 102.8 fL 81-99 [facility] Hematocrit Auto (Bld) [Volum e fraction]Ordered By: Ender Oates on 02-09-2023 Hematocrit (Bld) [Volume fraction] 40.6 % 37-47 [facility] Laboratory - Chemistry and C hemistry - challengeOrdered By: Ender Oates on 02-09-2023 ALP [Catalytic activity/Vol] 87 U/L 45-117 [facility] ALT [Catalytic activity/Vol] 14 U/L 13-56 [facility] CO2 [Moles/Vol] 28.0 mmol/L 21.0-32.0 [facility] Globulin (S) [Mass/Vol] 3.8 g/dL 2.2-4.2 [facility] Urea nitrogen/Creatinine [Mass ratio] 26.2 mg/mg 10-20 [facility] Laboratory - Hematology and Cell countsOrdered By: Ender Oates on 02-09-2023 Erythrocyte distribution width (RBC) [Entitic vol] 53.2 fL 35.1-43.9 [facility] Erythrocyte distribution width (RBC) [Ratio] 13.8 % 11.6-14.6 [facility] MCH (RBC) [Entitic mass] 32.7 pg 27.0-32.0 [facility] MCHC Auto (RBC) [Mass/Vol]Or dered By: Ender Oates on 02-09-2023 MCHC (RBC) [Mass/Vol] 31.8 g/dL 32-36 [facility] No Panel InformationOrdered By: Ender Oates on 02-09-2023 Estimated GFR (MDRD) Amer 83 mL/min >60 [facility] Comment on above: GFR Calc Estimated GFR (MDRD) Non-Af Amer 68 mL/min >60 [facility] Comment on above: Non- GFR Calc Platelets bldOrdered By: Ronaldo Oates on 02-09-2023 Platelets (Bld) [#/Vol] 173 10*3/uL 150-450 [facility] Serum or plasma albumin tammie urement (mass/volume)Ordered By: Ender Oates on 02-09-2023 Albumin [Mass/Vol] 2.7 g/dL 3.2-5.0 [facility] Serum or plasma albumin/glob ulin mass ratioOrdered By: Ender Oates on 02-09-2023 Albumin/Globulin [Mass ratio] 0.7 {ratio} 0.9-2.4 [facility] Serum or plasma calcium tammie urement (mass/volume)Ordered By: Ender Oates on 02-09-2023 Calcium [Mass/Vol] 8.1 mg/dL 8.5-10.1 [facility] Serum or plasma cholesterol in HDL measurement (mass/volume)Ordered By: Ender Oates on 02-09-2023 Cholesterol in HDL [Mass/Vol] 55 mg/dL >40 [facility] Comment on above: The drugs N-Acetylcy steine and Metamizole may falsely depress this assay. Reference Range HDL <40 mg/dL Low HDL Cholesterol HDL >or= 60 mg/dL High HDL Cholesterol Serum or plasma cholesterol in VLDL measurement (mass/volume)Ordered By: Ender Oates on 02-09-2023 Cholesterol in VLDL [Mass/Vol] 16 mg/dL 5-40 [facility] Serum or plasma creatinine m easurement (mass/volume)Ordered By: Ender Oates on 02-09-2023 Creatinine [Mass/Vol] 0.88 mg/dL 0.55-1.02 [facility] Comment on above: The validity of the calculated GFR & GFRAA in patients over 70 years has not been determined. Clinical correlation is essential. Serum or plasma low density lipoprotein (LDL) cholesterol measurement (mass/volume)Ordered By: Ender Oates on 02-09-2023 Cholesterol in LDL [Mass/Vol] 50 mg/dL 0-130 [facility] Serum or plasma urea nitroge n measurement (mass/volume)Ordered By: Ender Oates on 02-09-2023 Urea nitrogen [Mass/Vol] 23 mg/dL 7-18 [facility] Thin prep Papanicolaou smear with manual screeningOrdered By: Ender Oates on 02-09-2023 Thin prep Papanicolaou smear with manual screening 15 U/L 15-37 [facility] Thin prep Papanicolaou smear with manual screening 3 5-15 [facility] Basophil percentageOrdered B y: Ender Oates on 01-12-2023 Bilirubin [Mass/Vol] 0.30 mg/dL 0.20-1.00 [facility] Comment on above: For patients on eltr ombopag therapy, use of Dimension [place] TBIL is not recommended. Chloride [Moles/Vol] 107 mmol/L 98-107 [facility] Glucose [Mass/Vol] 86 mg/dL 74-106 [facility] Potassium [Moles/Vol] 4.4 mmol/L 3.5-5.1 [facility] Protein [Mass/Vol] 6.3 g/dL 6.4-8.2 [facility] Sodium [Moles/Vol] 141 mmol/L 136-145 [facility] WBC (Bld) [#/Vol] 4.9 10*3/uL 4.4-11.0 [facility] Blood erythrocytes count (nu mber/volume)Ordered By: Ender Oates on 01-12-2023 RBC (Bld) [#/Vol] 3.85 10*6/uL 4.2-5.4 [facility] Blood hemoglobin measurement (mass/volume)Ordered By: Ender Oates on 01-12-2023 Hemoglobin (Bld) [Mass/Vol] 12.9 g/dL 12.0-15.0 [facility] Blood platelet mean volumeOr dered By: Ender Oates on 01-12-2023 Platelet mean volume (Bld) [Entitic vol] 11.2 fL 6.2-12.0 [facility] Determination of erythrocyte mean corpuscular volume (MCV)Ordered By: Ender Oates on 01-12-2023 MCV (RBC) [Entitic vol] 106.5 fL 81-99 [facility] Hematocrit Auto (Bld) [Volum e fraction]Ordered By: Ender Oates on 01-12-2023 Hematocrit (Bld) [Volume fraction] 41.0 % 37-47 [facility] Laboratory - Chemistry and C hemistry - challengeOrdered By: Ender Oates on 01-12-2023 ALP [Catalytic activity/Vol] 70 U/L 45-117 [facility] ALT [Catalytic activity/Vol] 18 U/L 13-56 [facility] CO2 [Moles/Vol] 31.0 mmol/L 21.0-32.0 [facility] Globulin (S) [Mass/Vol] 3.6 g/dL 2.2-4.2 [facility] Urea nitrogen/Creatinine [Mass ratio] 24.5 mg/mg 10-20 [facility] - Hematology and Cell countsOrdered By: Ender Oates on 01-12-2023 Erythrocyte distribution width (RBC) [Entitic vol] 56.8 fL 35.1-43.9 [facility] Erythrocyte distribution width (RBC) [Ratio] 14.5 % 11.6-14.6 [facility] MCH (RBC) [Entitic mass] 33.5 pg 27.0-32.0 [facility] MCHC Auto (RBC) [Mass/Vol]Or dered By: Ender Oates on 01-12-2023 MCHC (RBC) [Mass/Vol] 31.5 g/dL 32-36 [facility] No Panel InformationOrdered By: Ender Oates on 01-12-2023 Estimated GFR (MDRD) Amer 73 mL/min >60 [facility] Comment on above: GFR Calc Estimated GFR (MDRD) Non-Af Amer 60 mL/min >60 [facility] Comment on above: Non- GFR Calc Platelets bldOrdered By: Ronaldo Oates on 01-12-2023 Platelets (Bld) [#/Vol] 171 10*3/uL 150-450 [facility] Serum or plasma albumin tammie urement (mass/volume)Ordered By: Ender Oates on 01-12-2023 Albumin [Mass/Vol] 2.7 g/dL 3.2-5.0 [facility] Serum or plasma albumin/glob ulin mass ratioOrdered By: Ender Oates on 01-12-2023 Albumin/Globulin [Mass ratio] 0.8 {ratio} 0.9-2.4 [facility] Serum or plasma calcium tammie urement (mass/volume)Ordered By: Ender Oates on 01-12-2023 Calcium [Mass/Vol] 8.7 mg/dL 8.5-10.1 [facility] Serum or plasma creatinine m easurement (mass/volume)Ordered By: Ender Oates on 01-12-2023 Creatinine [Mass/Vol] 0.98 mg/dL 0.55-1.02 [facility] Comment on above: The validity of the calculated GFR & GFRAA in patients over 70 years has not been determined. Clinical correlation is essential. Serum or plasma urea nitroge n measurement (mass/volume)Ordered By: Ender Oates on 01-12-2023 Urea nitrogen [Mass/Vol] 24 mg/dL 7-18 [facility] Thin prep Papanicolaou smear with manual screeningOrdered By: Ender Oates on 01-12-2023 Thin prep Papanicolaou smear with manual screening 17 U/L 15-37 [facility] Thin prep Papanicolaou smear with manual screening 3 5-15 [facility] Automated blood hematocrit ( percentage)Ordered By: Ender Oates on 12-30-2022 Hematocrit (Bld) [Volume fraction] 43.6 % 37-47 [facility] Basophil percentageOrdered B y: Ender Oates on 12-30-2022 Bilirubin [Mass/Vol] 0.50 mg/dL 0.20-1.00 [facility] Comment on above: For patients on eltr ombopag therapy, use of Dimension [place] TBIL is not recommended. Chloride [Moles/Vol] 105 mmol/L 98-107 [facility] Glucose [Mass/Vol] 89 mg/dL 74-106 [facility] Potassium [Moles/Vol] 4.1 mmol/L 3.5-5.1 [facility] Protein [Mass/Vol] 7.4 g/dL 6.4-8.2 [facility] Sodium [Moles/Vol] 137 mmol/L 136-145 [facility] WBC (Bld) [#/Vol] 6.6 10*3/uL 4.4-11.0 [facility] Blood erythrocytes count (nu mber/volume)Ordered By: Ender Oates on 12-30-2022 RBC (Bld) [#/Vol] 4.20 10*6/uL 4.2-5.4 [facility] Blood hemoglobin measurement (mass/volume)Ordered By: Ender Oatse on 12-30-2022 Hemoglobin (Bld) [Mass/Vol] 13.9 g/dL 12.0-15.0 [facility] Blood platelet mean volumeOr dered By: Ender Oates on 12-30-2022 Platelet mean volume (Bld) [Entitic vol] 12.2 fL 6.2-12.0 [facility] CBCon 12-30-2022 MCH 33.1 pG 27 - 34 pG [facility] MCHC 31.9 % Abnormal 32 - 36 % [facility] MPV 12.2 % Abnormal 7.3 - 11.1 % [facility] RDW-SD 56.2 [facility] CMP (EXTERNAL)on 12-30-2022 Alk Phos Total 85 U/L 45 - 117 U/L [facility] AST [Catalytic activity/Vol] 20 U/L 8 - 37 U/L [facility] Bili Total 0.50 mg/dL 0.2 - 1 mg/dL [facility] CO2 [Moles/Vol] 26 mmol/L 21 - 32 MEQ/L [facility] GFR AFR AMER 85 mL/MIN [facility] GFR/1.73 sq M.predicted among non-blacks MDRD (S/P/Bld) [Vol rate/Area] 70 mL/min/{1.73_m2} [facility] Determination of erythrocyte mean corpuscular volume (MCV)Ordered By: Ender Oates on 12-30-2022 MCV (RBC) [Entitic vol] 103.8 fL 81-99 [facility] Laboratory - Chemistry and C hemistry - challengeOrdered By: Ender Oates on 12-30-2022 ALP [Catalytic activity/Vol] 85 U/L 45-117 [facility] ALT [Catalytic activity/Vol] 18 U/L 13-56 [facility] CO2 [Moles/Vol] 26.0 mmol/L 21.0-32.0 [facility] Globulin (S) [Mass/Vol] 4.1 g/dL 2.2-4.2 [facility] Urea nitrogen/Creatinine [Mass ratio] 35.0 mg/mg 10-20 [facility] - Hematology and Cell countsOrdered By: Ender Oates on 12-30-2022 Erythrocyte distribution width (RBC) [Entitic vol] 56.2 fL 35.1-43.9 [facility] Erythrocyte distribution width (RBC) [Ratio] 14.5 % 11.6-14.6 [facility] MCH (RBC) [Entitic mass] 33.1 pg 27.0-32.0 [facility] - Microbiology an d Antimicrobial susceptibilityOrdered By: Ender Oates on 12-30-2022 Bacteria identified Cx Nom (Bld) No growth in 5 days. [facility] Bacteria identified Cx Nom (Bld) No growth in 5 days. [facility] MCHC Auto (RBC) [Mass/Vol]Or dered By: Ender Oates on 12-30-2022 MCHC (RBC) [Mass/Vol] 31.9 g/dL 32-36 [facility] No Panel InformationOrdered By: Ender Oates on 12-30-2022 Estimated GFR (MDRD) Amer 85 mL/min >60 [facility] Comment on above: GFR Calc Estimated GFR (MDRD) Non-Af Amer 70 mL/min >60 [facility] Comment on above: Non- GFR Calc Platelets bldOrdered By: Ronlado Oates on 12-30-2022 Platelets (Bld) [#/Vol] 168 10*3/uL 150-450 [facility] Serum or plasma albumin tammie urement (mass/volume)Ordered By: Ender Oates on 12-30-2022 Albumin [Mass/Vol] 3.3 g/dL 3.2-5.0 [facility] Serum or plasma albumin/glob ulin mass ratioOrdered By: Ender Oates on 12-30-2022 Albumin/Globulin [Mass ratio] 0.8 {ratio} 0.9-2.4 [facility] Serum or plasma calcium tammie urement (mass/volume)Ordered By: Ender Oates on 12-30-2022 Calcium [Mass/Vol] 9.0 mg/dL 8.5-10.1 [facility] Serum or plasma creatinine m easurement (mass/volume)Ordered By: Ender Oates on 12-30-2022 Creatinine [Mass/Vol] 0.86 mg/dL 0.55-1.02 [facility] Comment on above: The validity of the calculated GFR & GFRAA in patients over 70 years has not been determined. Clinical correlation is essential. Serum or plasma urea nitroge n measurement (mass/volume)Ordered By: Ender Oates on 12-30-2022 Urea nitrogen [Mass/Vol] 30 mg/dL 7-18 [facility] Thin prep Papanicolaou smear with manual screeningOrdered By: Ender Oates on 12-30-2022 Thin prep Papanicolaou smear with manual screening 20 U/L 15-37 [facility] Thin prep Papanicolaou smear with manual screening 6 5-15 [facility] Automated blood hematocrit ( percentage)Ordered By: Ender Oates on 12-09-2022 Hematocrit (Bld) [Volume fraction] 41.4 % 37-47 [facility] Basophil percentageOrdered B y: Ender Oates on 12-09-2022 Bilirubin [Mass/Vol] 0.40 mg/dL 0.20-1.00 [facility] Comment on above: For patients on eltr ombopag therapy, use of Dimension [place] TBIL is not recommended. Chloride [Moles/Vol] 107 mmol/L 98-107 [facility] Glucose [Mass/Vol] 107 mg/dL 74-106 [facility] Comment on above: Fasting Glucose resu lt from 100 to 125 mg/dL suggests IMPAIRED HOMEOSTASIS per A.D.A. criteria. Potassium [Moles/Vol] 4.0 mmol/L 3.5-5.1 [facility] Protein [Mass/Vol] 6.3 g/dL 6.4-8.2 [facility] Sodium [Moles/Vol] 138 mmol/L 136-145 [facility] WBC (Bld) [#/Vol] 6.1 10*3/uL 4.4-11.0 [facility] Blood erythrocytes count (nu mber/volume)Ordered By: Ender Oates on 12-09-2022 RBC (Bld) [#/Vol] 3.98 10*6/uL 4.2-5.4 [facility] Blood hemoglobin measurement (mass/volume)Ordered By: Ender Oates on 12-09-2022 Hemoglobin (Bld) [Mass/Vol] 12.9 g/dL 12.0-15.0 [facility] Blood platelet mean volumeOr dered By: Ender Oates on 12-09-2022 Platelet mean volume (Bld) [Entitic vol] 11.0 fL 6.2-12.0 [facility] CBCon 12-09-2022 Hemoglobin (Bld) [Mass/Vol] 15.7 g/dL 12 - 16 g/dL [facility] MCH 32.4 pG 27 - 34 pG [facility] MCHC 31.2 % Abnormal 32 - 36 % [facility] MCV (RBC) [Entitic vol] 104 fL Abnormal 80 - 100 fL [facility] MPV 11.0 % 7.3 - 11.1 % [facility] RBC (Bld) [#/Vol] 4.76 10*6/uL [facility] RDW-SD 56.9 [facility] CMP (EXTERNAL)on 12-09-2022 Alk Phos Total 74 U/L 45 - 117 U/L [facility] AST [Catalytic activity/Vol] 10 U/L 8 - 37 U/L [facility] Bili Total 0.40 mg/dL 0.2 - 1 mg/dL [facility] CO2 [Moles/Vol] 27 mmol/L 21 - 32 MEQ/L [facility] Creatinine [Mass/Vol] 0.74 mg/dL 0.6 - 1.3 MG/DL [facility] GFR AFR AMER 101 mL/MIN [facility] GFR/1.73 sq M.predicted among non-blacks MDRD (S/P/Bld) [Vol rate/Area] 84 mL/min/{1.73_m2} [facility] Glucose [Mass/Vol] 104 mg/dL 74 - 106 MG/DL [facility] Urea nitrogen [Mass/Vol] 26 mg/dL Abnormal 7 - 18 MG/D L [facility] Determination of erythrocyte mean corpuscular volume (MCV)Ordered By: Ender Oates on 12-09-2022 MCV (RBC) [Entitic vol] 104.0 fL 81-99 [facility] Laboratory - Chemistry and C hemistry - challengeOrdered By: Ender Oates on 12-09-2022 ALP [Catalytic activity/Vol] 74 U/L 45-117 [facility] ALT [Catalytic activity/Vol] 17 U/L 13-56 [facility] CO2 [Moles/Vol] 27.0 mmol/L 21.0-32.0 [facility] Globulin (S) [Mass/Vol] 3.6 g/dL 2.2-4.2 [facility] Urea nitrogen/Creatinine [Mass ratio] 23.3 mg/mg 10-20 [facility] - Hematology and Cell countsOrdered By: Ender Oates on 12-09-2022 Erythrocyte distribution width (RBC) [Entitic vol] 56.9 fL 35.1-43.9 [facility] Erythrocyte distribution width (RBC) [Ratio] 14.8 % 11.6-14.6 [facility] MCH (RBC) [Entitic mass] 32.4 pg 27.0-32.0 [facility] MCHC Auto (RBC) [Mass/Vol]Or dered By: Ender Oates on 12-09-2022 MCHC (RBC) [Mass/Vol] 31.2 g/dL 32-36 [facility] No Panel InformationOrdered By: Ender Oates on 12-09-2022 Estimated GFR (MDRD) Amer 60 mL/min >60 [facility] Comment on above: GFR Calc Estimated GFR (MDRD) Non-Af Amer 50 mL/min >60 [facility] Comment on above: Non- GFR Calc Platelets bldOrdered By: Ronaldo Oates on 12-09-2022 Platelets (Bld) [#/Vol] 185 10*3/uL 150-450 [facility] Serum or plasma albumin tammie urement (mass/volume)Ordered By: Ender Oates on 12-09-2022 Albumin [Mass/Vol] 2.7 g/dL 3.2-5.0 [facility] Serum or plasma albumin/glob ulin mass ratioOrdered By: Ender Oates on 12-09-2022 Albumin/Globulin [Mass ratio] 0.8 {ratio} 0.9-2.4 [facility] Serum or plasma calcium tammie urement (mass/volume)Ordered By: Ender Oates on 12-09-2022 Calcium [Mass/Vol] 8.3 mg/dL 8.5-10.1 [facility] Serum or plasma creatinine m easurement (mass/volume)Ordered By: Ender Oates on 12-09-2022 Creatinine [Mass/Vol] 1.16 mg/dL 0.55-1.02 [facility] Comment on above: The validity of the calculated GFR & GFRAA in patients over 70 years has not been determined. Clinical correlation is essential. Serum or plasma urea nitroge n measurement (mass/volume)Ordered By: Ender Oates on 12-09-2022 Urea nitrogen [Mass/Vol] 27 mg/dL 7-18 [facility] Thin prep Papanicolaou smear with manual screeningOrdered By: Ender Oates on 12-09-2022 Thin prep Papanicolaou smear with manual screening 18 U/L 15-37 [facility] Thin prep Papanicolaou smear with manual screening 4 5-15 [facility] Basophil percentageOrdered B y: Ender Oates on 11-27-2022 Bilirubin [Mass/Vol] 0.30 mg/dL 0.20-1.00 [facility] Comment on above: For patients on eltr ombopag therapy, use of Dimension [place] TBIL is not recommended. Chloride [Moles/Vol] 107 mmol/L 98-107 [facility] Glucose [Mass/Vol] 104 mg/dL 74-106 [facility] Comment on above: Fasting Glucose resu lt from 100 to 125 mg/dL suggests IMPAIRED HOMEOSTASIS per A.D.A. criteria. Potassium [Moles/Vol] 4.9 mmol/L 3.5-5.1 [facility] Comment on above: Slight Hemolysis, Re sult may be falsely increased. Protein [Mass/Vol] 7.4 g/dL 6.4-8.2 [facility] Sodium [Moles/Vol] 137 mmol/L 136-145 [facility] Laboratory - Chemistry and C hemistry - challengeOrdered By: Ender Oates on 11-27-2022 ALP [Catalytic activity/Vol] 93 U/L 45-117 [facility] ALT [Catalytic activity/Vol] 19 U/L 13-56 [facility] CO2 [Moles/Vol] 27.0 mmol/L 21.0-32.0 [facility] Globulin (S) [Mass/Vol] 4.4 g/dL 2.2-4.2 [facility] Natriuretic peptide B (Bld) [Mass/Vol] 64.0 pg/mL 0-100 [facility] Urea nitrogen/Creatinine [Mass ratio] 35.3 mg/mg 10-20 [facility] No Panel InformationOrdered By: Ender Oates on 11-27-2022 Estimated GFR (MDRD) Amer 101 mL/min >60 [facility] Comment on above: GFR Calc Estimated GFR (MDRD) Non-Af Amer 84 mL/min >60 [facility] Comment on above: Non- GFR Calc Thyroid Stimulating Hormone (TSH) 3.41 uIU/mL 0.358-3.74 [facility] Serum or plasma C reactive p rotein measurement (mass/volume)Ordered By: Ender Oates on 11-27-2022 CRP [Mass/Vol] mg/L 0.0-3.0 [facility] Comment on above: C-Reactive Protein ( CRP) provides useful information for thediagnosis, therapy and monitoring of inflammatory processesand associated diseases. For the evaluation of Relative Riskfor Cardiovascular Disease, a High Sensitivity CRP (HSCRP)should be ordered. Serum or plasma albumin tammie urement (mass/volume)Ordered By: Ender Oates on 11-27-2022 Albumin [Mass/Vol] 3.0 g/dL 3.2-5.0 [facility] Serum or plasma albumin/glob ulin mass ratioOrdered By: Ender Oates on 11-27-2022 Albumin/Globulin [Mass ratio] 0.7 {ratio} 0.9-2.4 [facility] Serum or plasma calcium tammie urement (mass/volume)Ordered By: Ender Oates on 11-27-2022 Calcium [Mass/Vol] 8.6 mg/dL 8.5-10.1 [facility] Serum or plasma creatinine m easurement (mass/volume)Ordered By: Ender Oates on 11-27-2022 Creatinine [Mass/Vol] 0.74 mg/dL 0.55-1.02 [facility] Comment on above: The validity of the calculated GFR & GFRAA in patients over 70 years has not been determined. Clinical correlation is essential. Serum or plasma urea nitroge n measurement (mass/volume)Ordered By: Ender Oates on 11-27-2022 Urea nitrogen [Mass/Vol] 26 mg/dL 7-18 [facility] Thin prep Papanicolaou smear with manual screeningOrdered By: Ender Oates on 11-27-2022 Thin prep Papanicolaou smear with manual screening 20 U/L 15 [facility] Comment on above: Slight Hemolysis, Re sult may be falsely increased. Thin prep Papanicolaou smear with manual screening 3 5-15 [facility] Basic metabolic 1998 panelon 11-17-2022 Anion gap [Moles/Vol] 5 mmol/L 3 - 13 mmol/L [facility] Calcium [Mass/Vol] 8.5 mg/dL 8.4 - 10. 4 mg/dL [facility] Chloride [Moles/Vol] 105 mmol/L 98 - 10 7 mmol/L [facility] CO2 [Moles/Vol] 27 mmol/L 22 - 30 mmol/L [facility] Creatinine [Mass/Vol] 0.79 mg/dL 0.52 - 1.04 mg/dL [facility] GFR/1.73 sq M.predicted MDRD (S/P/Bld) [Vol rate/Area] 82.6 mL/min/{1.73_m2} - PINF [facility] Comment on above: Calculation based on the Chronic Kidney Disease Epidemiology Collaboration (CKD-EPI) equation refit without adjustment for race Glucose [Mass/Vol] 93 mg/dL 70 - 100 mg/dL [facility] Interpretation and review of laboratory results Abnormal [facility] Potassium [Moles/Vol] 4.5 mmol/L 3.5 - 5.1 mmol/L [facility] Sodium [Moles/Vol] 137 mmol/L 135 - 145 mmol/L [facility] [employer] Urea nitrogen [Mass/Vol] 32 mg/dL High 7 - 17 mg/d L [facility] CBC W Auto Differential pane l (Bld)Ordered By: Mychal Blackwood on 11-17-2022 Basophils (Bld) [#/Vol] 0.1 10*3/uL 0.0 - 0.2 10*3/uL [facility] Basophils/100 WBC (Bld) 1.6 % 0.0 - 2.0 % [facility] Eosinophils (Bld) [#/Vol] 0.1 10*3/uL 0.0 - 0.5 10*3/uL [facility] Eosinophils/100 WBC (Bld) 0.9 % Low 1.0 - 6.0 % [facility] Erythrocyte distribution width (RBC) [Ratio] 15.2 % High 11.5 - 14.5 % [facility] Hematocrit (Bld) [Volume fraction] 45.0 % 35.0 - 47.0 % [facility] Hemoglobin (Bld) [Mass/Vol] 15.3 g/dL 11.7 - 16.0 g/dL [facility] Interpretation and review of laboratory results Abnormal [facility] Lymphocytes (Bld) [#/Vol] 1.9 10*3/uL 1.0 - 4.3 10*3/uL [facility] Lymphocytes/100 WBC (Bld) 27.2 % 20.0 - 40.0 % [facility] MCH (RBC) [Entitic mass] 33.5 pg 26. 0 - 34.0 pg [facility] MCHC (RBC) [Mass/Vol] 34.1 % 32.0 - 36.0 % [facility] MCV (RBC) [Entitic vol] 98.3 fL High 80.0 - 98.0 fL [facility] Monocytes (Bld) [#/Vol] 0.6 10*3/uL 0.0 - 0.8 10*3/uL [facility] Monocytes/100 WBC (Bld) 8.6 % 2.0 - 10.0 % [facility] Neutrophils (Bld) [#/Vol] 4.4 10*3/uL 1.8 - 7.0 10*3/uL [facility] Neutrophils/100 WBC (Bld) 61.7 % 40.0 - 80.0 % [facility] Nucleated RBC/100 WBC (Bld) [Ratio] 0.0 % [facility] Platelet mean volume (Bld) [Entitic vol] 9.5 fL 7.4 - 12.4 fL [facility] Platelets (Bld) [#/Vol] 200 10*3/uL 140 - 440 10*3/uL [facility] RBC (Bld) [#/Vol] 4.58 10*6/uL 3.8 - 5.20 10*6/uL [facility] WBC (Bld) [#/Vol] 7.1 10*3/uL 3.6 - 10.7 10*3/uL [facility] CTA Chest vessels WO and W c ontrast [place] 11-17-2022 Impression:The etiology of the symptoms is not certain. No large central embolism seen.. Report Dictated on Electronically Signed By: John Paul Boone Electronically Signed Date/Time: 11/17/2022 11:24 AM EDT [facility] Patient Name: CHARLIE NGUYEN : 1955 [...] abdomen: No convincing evidence of acute process.. [facility] RADIOLOGY SYSTEM John Paul Boone MD - [...] Electronically Signed Date/Time: 11/17/2022 11:24 AM EDT [facility] (narrative[facility] arun CTA Chest vessels WO and W c ontrast IVOrdered By: John Paul Boone on 11-17-2022 [facility] Work Phone: Laboratory - Chemistry and C hemistry - challengeon 11-17-2022 Troponin I.cardiac [Mass/Vol] ng/mL 0.000 - 0.034 ng/mL [facility] Natriuretic peptide B [Mass/ Vol]on 11-17-2022 Natriuretic peptide B (Bld) [Mass/Vol] 85 pg/mL <20 - 300 [facility] No Panel Informationon 11-17 No evidence of [...] Goodman DO on 11/17/2022 at 11:06 EDT. [employer] Details A chavez scale, color Doppler imaging [...] Interpretation and review of laboratory results Normal [facility] Troponin I.cardiac [Mass/Vol ]on 11-17-2022 Patients with high levels of Biotin oral intake (ie >5 mg/day) may have falsely decreased Troponin levels. [facility] Basophil percentageOrdered B y: Ender Oates on 11-10-2022 Bilirubin [Mass/Vol] 0.60 mg/dL 0.20-1.00 [facility] Comment on above: For patients on eltr ombopag therapy, use of Dimension [place] TBIL is not recommended. Chloride [Moles/Vol] 106 mmol/L 98-107 [facility] Glucose [Mass/Vol] 95 mg/dL 74-106 [facility] Potassium [Moles/Vol] 5.5 mmol/L 3.5-5.1 [facility] Protein [Mass/Vol] 7.3 g/dL 6.4-8.2 [facility] Sodium [Moles/Vol] 140 mmol/L 136-145 [facility] WBC (Bld) [#/Vol] 9.6 10*3/uL 4.4-11.0 [facility] Blood erythrocytes count (nu mber/volume)Ordered By: Ender Oates on 11-10-2022 RBC (Bld) [#/Vol] 4.76 10*6/uL 4.2-5.4 [facility] Blood hemoglobin measurement (mass/volume)Ordered By: Ender Oates on 11-10-2022 Hemoglobin (Bld) [Mass/Vol] 15.7 g/dL 12.0-15.0 [facility] Blood platelet mean volumeOr dered By: Ender Oates on 11-10-2022 Platelet mean volume (Bld) [Entitic vol] 11.7 fL 6.2-12.0 [facility] Determination of erythrocyte mean corpuscular volume (MCV)Ordered By: Ender Oates on 11-10-2022 MCV (RBC) [Entitic vol] 104.0 fL 81-99 [facility] Hematocrit Auto (Bld) [Volum e fraction]Ordered By: Ender Oates on 11-10-2022 Hematocrit (Bld) [Volume fraction] 49.5 % 37-47 [facility] Laboratory - Chemistry and C hemistry - challengeOrdered By: Ender Oates on 11-10-2022 ALP [Catalytic activity/Vol] 91 U/L 45-117 [facility] ALT [Catalytic activity/Vol] 17 U/L 13-56 [facility] CO2 [Moles/Vol] 24.0 mmol/L 21.0-32.0 [facility] Globulin (S) [Mass/Vol] 3.9 g/dL 2.2-4.2 [facility] Urea nitrogen/Creatinine [Mass ratio] 34.2 mg/mg 10-20 [facility] Laboratory - Hematology and Cell countsOrdered By: Ender Oates on 11-10-2022 Erythrocyte distribution width (RBC) [Entitic vol] 57.3 fL 35.1-43.9 [facility] Erythrocyte distribution width (RBC) [Ratio] 14.7 % 11.6-14.6 [facility] MCH (RBC) [Entitic mass] 33.0 pg 27.0-32.0 [facility] MCHC Auto (RBC) [Mass/Vol]Or dered By: Ender Oates on 11-10-2022 MCHC (RBC) [Mass/Vol] 31.7 g/dL 32-36 [facility] No Panel InformationOrdered By: Ender Oates on 11-10-2022 Estimated GFR (MDRD) Amer 72 mL/min >60 [facility] Comment on above: GFR Calc Estimated GFR (MDRD) Non-Af Amer 59 mL/min >60 [facility] Comment on above: Non- GFR Calc Platelets bldOrdered By: Ronaldo Oates on 11-10-2022 Platelets (Bld) [#/Vol] 206 10*3/uL 150-450 [facility] Serum or plasma albumin tammie urement (mass/volume)Ordered By: Ender Oates on 11-10-2022 Albumin [Mass/Vol] 3.4 g/dL 3.2-5.0 [facility] Serum or plasma albumin/glob ulin mass ratioOrdered By: Ender Oates on 11-10-2022 Albumin/Globulin [Mass ratio] 0.9 {ratio} 0.9-2.4 [facility] Serum or plasma calcium tammie urement (mass/volume)Ordered By: Ender Oates on 11-10-2022 Calcium [Mass/Vol] 9.2 mg/dL 8.5-10.1 [facility] Serum or plasma creatinine m easurement (mass/volume)Ordered By: Ender Oates on 11-10-2022 Creatinine [Mass/Vol] 0.99 mg/dL 0.55-1.02 [facility] Comment on above: The validity of the calculated GFR & GFRAA in patients over 70 years has not been determined. Clinical correlation is essential. Serum or plasma urea nitroge n measurement (mass/volume)Ordered By: Ender Oates on 11-10-2022 Urea nitrogen [Mass/Vol] 34 mg/dL 7-18 [facility] Thin prep Papanicolaou smear with manual screeningOrdered By: Ender Oates on 11-10-2022 Thin prep Papanicolaou smear with manual screening 20 U/L 15-37 [facility] Thin prep Papanicolaou smear with manual screening 10 5-15 [facility] Automated blood hematocrit ( percentage)Ordered By: Ender Oates on 10-06-2022 Hematocrit (Bld) [Volume fraction] 49.3 % 37-47 [facility] Basophil percentageOrdered B y: Ender Oates on 10-06-2022 Chloride [Moles/Vol] 108 mmol/L 98-107 [facility] Glucose [Mass/Vol] 156 mg/dL 74-106 [facility] Comment on above: Fasting Glucose resu lt greater than or equal to 126 mg/dL suggests DIABETES MELLITUS per A.D.A. criteria. Potassium [Moles/Vol] 4.3 mmol/L 3.5-5.1 [facility] Protein [Mass/Vol] 7.9 g/dL 6.4-8.2 [facility] Sodium [Moles/Vol] 139 mmol/L 136-145 [facility] WBC (Bld) [#/Vol] 8.1 10*3/uL 4.4-11.0 [facility] Bilirubin [Mass/Vol] 0.70 mg/dL 0.20-1.00 [facility] Comment on above: For patients on eltr ombopag therapy, use of Dimension [place] TBIL is not recommended. Blood erythrocytes count (nu mber/volume)Ordered By: Ender Oates on 10-06-2022 RBC (Bld) [#/Vol] 4.89 10*6/uL 4.2-5.4 [facility] Blood hemoglobin measurement (mass/volume)Ordered By: Ender Oates on 10-06-2022 Hemoglobin (Bld) [Mass/Vol] 15.9 g/dL 12.0-15.0 [facility] Blood platelet mean volumeOr dered By: Ender Oates on 10-06-2022 Platelet mean volume (Bld) [Entitic vol] 11.6 fL 6.2-12.0 [facility] CBCon 10-06-2022 Erythrocyte distribution width (RBC) [Ratio] 14.8 % 11.7 - 15.0 % [facility] Erythrocyte distribution width (RBC) [Ratio] 14.7 % 11.7 - 15.0 % [facility] Hematocrit (Bld) [Volume fraction] 43.5 % Abnormal 33 - 42 % [facility] Hematocrit (Bld) [Volume fraction] 45.6 % 35 - 47 % [facility] Hemoglobin (Bld) [Mass/Vol] 13.9 g/dL 12 - 16 g/dL [facility] Hemoglobin (Bld) [Mass/Vol] 14.1 g/dL 12 - 16 g/dL [facility] MCH 31.7 pG 27 - 34 pG [facility] MCH (RBC) [Entitic mass] 32.6 pg 25. 4 - 34.6 pg [facility] MCHC 32 % 32 - 36 % [facility] MCHC 30.9 % Abnormal 32 - 36 % [facility] MCV (RBC) [Entitic vol] 101.9 fL Abnormal 80 - 100 fL [facility] MCV (RBC) [Entitic vol] 102.5 fL Abnormal 80 - 100 fL [facility] MPV 11.2 % Abnormal 7.3 - 11.1 % [facility] MPV 10.7 % 7.3 - 11.1 % [facility] Platelets (Bld) [#/Vol] 198 10*3/uL 150 - 400 k/uL [facility] Platelets (Bld) [#/Vol] 222 10*3/uL 150 - 400 k/uL [facility] RBC (Bld) [#/Vol] 4.27 10*6/uL [facility] RBC (Bld) [#/Vol] 4.45 10*6/uL 4.2 - 5.4 M/uL [facility] RDW-SD 55.7 [facility] RDW-SD 56 [facility] WBC (Bld) [#/Vol] 7.7 10*3/uL 4.0 - 11.0 K/uL [facility] WBC (Bld) [#/Vol] 8.2 10*3/uL 4.0 - 11.0 K/uL [facility] CMP (EXTERNAL)on 10-06-2022 Albumin [Mass/Vol] 3.1 g/dL Abnormal 3.2 - 4.6 gm/dL [facility] Alk Phos Total 74 U/L 45 - 117 U/L [facility] Alk Phos Total 61 U/L 45 - 117 U/L [facility] Alk Phos Total 76 U/L 45 - 117 U/L [facility] ALT [Catalytic activity/Vol] 18 U/L 12 - 78 U/L [facility] ALT [Catalytic activity/Vol] 20 U/L 12 - 78 U/L [facility] AST [Catalytic activity/Vol] 19 U/L 8 - 37 U/L [facility] Bili Total 0.70 mg/dL 0.2 - 1 mg/dL [facility] Calcium [Mass/Vol] 8.7 mg/dL 8.5 - 10. 1 mg/dL [facility] Calcium [Mass/Vol] 8.8 mg/dL 8.5 - 10. 1 mg/dL [facility] Chloride [Moles/Vol] 104 mmol/L 98 - 10 7 MEQ/L [facility] Chloride [Moles/Vol] 109 mmol/L Abnormal 98 - 10 7 MEQ/L [facility] CO2 [Moles/Vol] 26 mmol/L 21 - 32 MEQ/L [facility] CO2 [Moles/Vol] 28 mmol/L 21 - 32 MEQ/L [facility] CO2 [Moles/Vol] 23 mmol/L 21 - 32 MEQ/L [facility] Creatinine [Mass/Vol] 0.76 mg/dL 0.6 - 1.3 MG/DL [facility] GFR AFR AMER 98 mL/MIN [facility] GFR AFR AMER 91 mL/MIN [facility] GFR/1.73 sq M.predicted among non-blacks MDRD (S/P/Bld) [Vol rate/Area] 81 mL/min/{1.73_m2} [facility] GFR/1.73 sq M.predicted among non-blacks MDRD (S/P/Bld) [Vol rate/Area] 75 mL/min/{1.73_m2} [facility] Globulin (S) [Mass/Vol] 3.8 g/dL [facility] Glucose [Mass/Vol] 79 mg/dL 74 - 106 MG/DL [facility] MCH 32.5 pG 27 - 34 pG [facility] MCHC 32.3 % 32 - 36 % [facility] MPV 11.6 % Abnormal 7.3 - 11.1 % [facility] Potassium [Moles/Vol] 4.5 mmol/L 3.5 - 5.1 mmol/L [facility] Potassium [Moles/Vol] 3.8 mmol/L 3.5 - 5.1 mmol/L [facility] Protein [Mass/Vol] 6.9 g/dL 6.4 - 8.2 gm/dL [facility] Protein [Mass/Vol] 6.5 g/dL 6.4 - 8.2 gm/dL [facility] RDW-SD 55.8 [facility] Sodium [Moles/Vol] 138 mmol/L 136 - 145 mmol/L [facility] Urea nitrogen [Mass/Vol] 23 mg/dL Abnormal 7 - 18 MG/D L [facility] Urea nitrogen/Creatinine [Mass ratio] 34.3 mg/mg Abnormal 9 - 20 [facility] Determination of erythrocyte mean corpuscular volume (MCV)Ordered By: Ender Oates on 10-06-2022 MCV (RBC) [Entitic vol] 100.8 fL 81-99 [facility] Laboratory - Chemistry and C hemistry - challengeOrdered By: Ender Oates on 10-06-2022 ALT [Catalytic activity/Vol] 22 U/L 13-56 [facility] Urea nitrogen/Creatinine [Mass ratio] 24.7 mg/mg 10-20 [facility] ALP [Catalytic activity/Vol] 76 U/L 45-117 [facility] CO2 [Moles/Vol] 23.0 mmol/L 21.0-32.0 [facility] Globulin (S) [Mass/Vol] 4.4 g/dL 2.2-4.2 [facility] Laboratory - Chemistry and C hemistry - challengeon 10-06-2022 Anion gap [Moles/Vol] 8 mmol/L [facility] AST [Catalytic activity/Vol] 25 U/L 8 - 37 U/L [facility] Laboratory - Hematology and Cell countsOrdered By: Ender Oates on 10-06-2022 Erythrocyte distribution width (RBC) [Ratio] 14.9 % 11.6-14.6 [facility] Erythrocyte distribution width (RBC) [Entitic vol] 55.8 fL 35.1-43.9 [facility] MCH (RBC) [Entitic mass] 32.5 pg 27.0-32.0 [facility] MCHC Auto (RBC) [Mass/Vol]Or dered By: Ender Oates on 10-06-2022 MCHC (RBC) [Mass/Vol] 32.3 g/dL 32-36 [facility] No Panel Informationon 10-06 Bili Total 0.40 mg/dL 0.2 - 1 mg/dL [facility] No Panel InformationOrdered By: Ender Oates on 10-06-2022 Estimated GFR (MDRD) Amer 91 mL/min >60 [facility] Comment on above: GFR Calc Estimated GFR (MDRD) Non-Af Amer 75 mL/min >60 [facility] Comment on above: Non- GFR Calc Platelets bldOrdered By: Ronaldo Oates on 10-06-2022 Platelets (Bld) [#/Vol] 202 10*3/uL 150-450 [facility] Serum or plasma albumin tammie urement (mass/volume)Ordered By: Ender Oates on 10-06-2022 Albumin [Mass/Vol] 3.5 g/dL 3.2-5.0 [facility] Serum or plasma albumin/glob ulin mass ratioOrdered By: Ender Oates on 10-06-2022 Albumin/Globulin [Mass ratio] 0.8 {ratio} 0.9-2.4 [facility] Serum or plasma calcium tammie urement (mass/volume)Ordered By: Ender Oates on 10-06-2022 Calcium [Mass/Vol] 9.3 mg/dL 8.5-10.1 [facility] Serum or plasma creatinine m easurement (mass/volume)Ordered By: Ender Oates on 10-06-2022 Creatinine [Mass/Vol] 0.81 mg/dL 0.55-1.02 [facility] Comment on above: The validity of the calculated GFR & GFRAA in patients over 70 years has not been determined. Clinical correlation is essential. Serum or plasma urea nitroge n measurement (mass/volume)Ordered By: Ender Oates on 10-06-2022 Urea nitrogen [Mass/Vol] 20 mg/dL 7-18 [facility] Thin prep Papanicolaou smear with manual screeningOrdered By: Ender Oates on 10-06-2022 Thin prep Papanicolaou smear with manual screening 25 U/L 15-37 [facility] Thin prep Papanicolaou smear with manual screening 8 5-15 [facility] Basophil percentageOrdered B y: Ender Oates on 09-08-2022 Bilirubin [Mass/Vol] 0.40 mg/dL 0.20-1.00 [facility] Comment on above: For patients on eltr ombopag therapy, use of Dimension [place] TBIL is not recommended. Chloride [Moles/Vol] 109 mmol/L 98-107 [facility] Glucose [Mass/Vol] 116 mg/dL 74-106 [facility] Comment on above: Fasting Glucose resu lt from 100 to 125 mg/dL suggests IMPAIRED HOMEOSTASIS per A.D.A. criteria. Potassium [Moles/Vol] 3.8 mmol/L 3.5-5.1 [facility] Protein [Mass/Vol] 6.5 g/dL 6.4-8.2 [facility] Sodium [Moles/Vol] 139 mmol/L 136-145 [facility] WBC (Bld) [#/Vol] 8.2 10*3/uL 4.4-11.0 [facility] Blood erythrocytes count (nu mber/volume)Ordered By: Ender Oates on 09-08-2022 RBC (Bld) [#/Vol] 4.45 10*6/uL 4.2-5.4 [facility] Blood hemoglobin measurement (mass/volume)Ordered By: Ender Oates on 09-08-2022 Hemoglobin (Bld) [Mass/Vol] 14.1 g/dL 12.0-15.0 [facility] Blood platelet mean volumeOr dered By: Ender Oates on 09-08-2022 Platelet mean volume (Bld) [Entitic vol] 10.7 fL 6.2-12.0 [facility] Determination of erythrocyte mean corpuscular volume (MCV)Ordered By: Ender Oates on 09-08-2022 MCV (RBC) [Entitic vol] 102.5 fL 81-99 [facility] Hematocrit Auto (Bld) [Volum e fraction]Ordered By: Ender Oates on 09-08-2022 Hematocrit (Bld) [Volume fraction] 45.6 % 37-47 [facility] Laboratory - Chemistry and C hemistry - challengeOrdered By: Ender Oates on 09-08-2022 ALP [Catalytic activity/Vol] 61 U/L 45-117 [facility] ALT [Catalytic activity/Vol] 20 U/L 13-56 [facility] CO2 [Moles/Vol] 28.0 mmol/L 21.0-32.0 [facility] Globulin (S) [Mass/Vol] 3.6 g/dL 2.2-4.2 [facility] Urea nitrogen/Creatinine [Mass ratio] 30.3 mg/mg 10-20 [facility] Laboratory - Hematology and Cell countsOrdered By: Ender Oates on 09-08-2022 Erythrocyte distribution width (RBC) [Entitic vol] 56.0 fL 35.1-43.9 [facility] Erythrocyte distribution width (RBC) [Ratio] 14.7 % 11.6-14.6 [facility] MCH (RBC) [Entitic mass] 31.7 [facility] 27[facility]0-[facility] ([facility] [Mass/Vol]Or dered By: Ender Oates on 09-08-2022 MCHC (RBC) [Mass/Vol] 30.9 g/dL 32-36 [facility] No Panel InformationOrdered By: Ender Oates on 09-08-2022 Estimated GFR (MDRD) Amer 98 mL/min >60 [facility] Comment on above: GFR Calc Estimated GFR (MDRD) Non-Af Amer 81 mL/min >60 [facility] Comment on above: Non- GFR Calc Platelets bldOrdered By: Ronaldo Oates on 09-08-2022 Platelets (Bld) [#/Vol] 222 10*3/uL 150-450 [facility] Serum or plasma albumin tammie urement (mass/volume)Ordered By: Ender Oates on 09-08-2022 Albumin [Mass/Vol] 2.9 g/dL 3.2-5.0 [facility] Serum or plasma albumin/glob ulin mass ratioOrdered By: Ender Oates on 09-08-2022 Albumin/Globulin [Mass ratio] 0.8 {ratio} 0.9-2.4 [facility] Serum or plasma calcium tammie urement (mass/volume)Ordered By: Ender Oates on 09-08-2022 Calcium [Mass/Vol] 8.8 mg/dL 8.5-10.1 [facility] Serum or plasma creatinine m easurement (mass/volume)Ordered By: Ender Oates on 09-08-2022 Creatinine [Mass/Vol] 0.76 mg/dL 0.55-1.02 [facility] Comment on above: The validity of the calculated GFR & GFRAA in patients over 70 years has not been determined. Clinical correlation is essential. Serum or plasma urea nitroge n measurement (mass/volume)Ordered By: Ender Oates on 09-08-2022 Urea nitrogen [Mass/Vol] 23 mg/dL 7-18 [facility] Thin prep Papanicolaou smear with manual screeningOrdered By: Ender Oates on 09-08-2022 Thin prep Papanicolaou smear with manual screening 19 U/L 15-37 [facility] Thin prep Papanicolaou smear with manual screening 2 5-15 [facility] Basophil percentageOrdered B y: Ender Oates on 08-28-2022 WBC (Bld) [#/Vol] 7.7 10*3/uL 4.4-11.0 [facility] Blood erythrocytes count (nu mber/volume)Ordered By: Ender Oates on 08-28-2022 RBC (Bld) [#/Vol] 4.27 10*6/uL 4.2-5.4 [facility] Blood hemoglobin measurement (mass/volume)Ordered By: Ender Oates on 08-28-2022 Hemoglobin (Bld) [Mass/Vol] 13.9 g/dL 12.0-15.0 [facility] Blood platelet mean volumeOr dered By: Ender Oates on 08-28-2022 Platelet mean volume (Bld) [Entitic vol] 11.2 fL 6.2-12.0 [facility] Determination of erythrocyte mean corpuscular volume (MCV)Ordered By: Ender Oates on 08-28-2022 MCV (RBC) [Entitic vol] 101.9 fL 81-99 [facility] Hematocrit Auto (Bld) [Volum e fraction]Ordered By: Ender Oates on 08-28-2022 Hematocrit (Bld) [Volume fraction] 43.5 % 37-47 [facility] Laboratory - Hematology and Cell countsOrdered By: Ender Oates on 08-28-2022 Erythrocyte distribution width (RBC) [Entitic vol] 55.7 fL 35.1-43.9 [facility] Erythrocyte distribution width (RBC) [Ratio] 14.8 % 11.6-14.6 [facility] MCH (RBC) [Entitic mass] 32.6 pg 27.0-32.0 [facility] MCHC Auto (RBC) [Mass/Vol]Or dered By: Ender Oates on 08-28-2022 MCHC (RBC) [Mass/Vol] 32.0 g/dL 32-36 [facility] Platelets bldOrdered By: Ronaldo Oates on 08-28-2022 Platelets (Bld) [#/Vol] 198 10*3/uL 150-450 [facility] Basophil percentageOrdered B y: Ender Oates on 08-11-2022 Bilirubin [Mass/Vol] 0.40 mg/dL 0.20-1.00 [facility] Comment on above: For patients on eltr ombopag therapy, use of Dimension [place] TBIL is not recommended. Chloride [Moles/Vol] 104 mmol/L 98-107 [facility] Glucose [Mass/Vol] 79 mg/dL 74-106 [facility] Potassium [Moles/Vol] 4.5 mmol/L 3.5-5.1 [facility] Protein [Mass/Vol] 6.9 g/dL 6.4-8.2 [facility] Sodium [Moles/Vol] 138 mmol/L 136-145 [facility] WBC (Bld) [#/Vol] 7.5 10*3/uL 4.4-11.0 [facility] Blood erythrocytes count (nu mber/volume)Ordered By: Ender Oates on 08-11-2022 RBC (Bld) [#/Vol] 4.57 10*6/uL 4.2-5.4 [facility] Blood hemoglobin measurement (mass/volume)Ordered By: Ender Oates on 08-11-2022 Hemoglobin (Bld) [Mass/Vol] 14.6 g/dL 12.0-15.0 [facility] Blood platelet mean volumeOr dered By: Ender Oates on 08-11-2022 Platelet mean volume (Bld) [Entitic vol] 11.5 fL 6.2-12.0 [facility] Determination of erythrocyte mean corpuscular volume (MCV)Ordered By: Ender Oates on 08-11-2022 MCV (RBC) [Entitic vol] 102.0 fL 81-99 [facility] Hematocrit Auto (Bld) [Volum e fraction]Ordered By: Ender Oates on 08-11-2022 Hematocrit (Bld) [Volume fraction] 46.6 % 37-47 [facility] Laboratory - Chemistry and C hemistry - challengeOrdered By: Ender Oates on 08-11-2022 ALP [Catalytic activity/Vol] 74 U/L 45-117 [facility] ALT [Catalytic activity/Vol] 18 U/L 13-56 [facility] CO2 [Moles/Vol] 26.0 mmol/L 21.0-32.0 [facility] Globulin (S) [Mass/Vol] 3.8 g/dL 2.2-4.2 [facility] Urea nitrogen/Creatinine [Mass ratio] 34.3 mg/mg 10-20 [facility] Laboratory - Hematology and Cell countsOrdered By: Ender Oates on 08-11-2022 Erythrocyte distribution width (RBC) [Entitic vol] 55.5 fL 35.1-43.9 [facility] Erythrocyte distribution width (RBC) [Ratio] 14.6 % 11.6-14.6 [facility] MCH (RBC) [Entitic mass] 31.9 pg 27.0-32.0 [facility] MCHC Auto (RBC) [Mass/Vol]Or dered By: Ender Oates on 08-11-2022 MCHC (RBC) [Mass/Vol] 31.3 g/dL 32-36 [facility] No Panel InformationOrdered By: Ender Oates on 08-11-2022 Estimated GFR (MDRD) Amer 77 mL/min >60 [facility] Comment on above: GFR Calc Estimated GFR (MDRD) Non-Af Amer 64 mL/min >60 [facility] Comment on above: Non- GFR Calc Platelets bldOrdered By: Ronaldo Oates on 08-11-2022 Platelets (Bld) [#/Vol] 193 10*3/uL 150-450 [facility] Serum or plasma albumin tammie urement (mass/volume)Ordered By: Ender Oates on 08-11-2022 Albumin [Mass/Vol] 3.1 g/dL 3.2-5.0 [facility] Serum or plasma albumin/glob ulin mass ratioOrdered By: Ender Oates on 08-11-2022 Albumin/Globulin [Mass ratio] 0.8 {ratio} 0.9-2.4 [facility] Serum or plasma calcium tammie urement (mass/volume)Ordered By: Ender Oates on 08-11-2022 Calcium [Mass/Vol] 8.7 mg/dL 8.5-10.1 [facility] Serum or plasma creatinine m easurement (mass/volume)Ordered By: Ender Oates on 08-11-2022 Creatinine [Mass/Vol] 0.93 mg/dL 0.55-1.02 [facility] Comment on above: The validity of the calculated GFR & GFRAA in patients over 70 years has not been determined. Clinical correlation is essential. Serum or plasma urea nitroge n measurement (mass/volume)Ordered By: Ender Oates on 08-11-2022 Urea nitrogen [Mass/Vol] 32 mg/dL 7-18 [facility] Thin prep Papanicolaou smear with manual screeningOrdered By: Ender Oates on 08-11-2022 Thin prep Papanicolaou smear with manual screening 25 U/L 15-37 [facility] Thin prep Papanicolaou smear with manual screening 8 5-15 [facility] Basophil percentageOrdered B y: Ender Oates on 08-08-2022 Cholesterol [Mass/Vol] 142 mg/dL <200 [facility] Comment on above: <200 mg/dL Desirable 200-240 mg/dL Borderline >240 mg/dL High Risk Triglyceride [Mass/Vol] 145 mg/dL <199 [facility] Comment on above: The drugs N-Acetylcy steine and Metamizole may falsely depress this assay.Serum Triglycerides Reference Interval Normal <150 mg/dL Borderline high 150 - 199 mg/dL High 200 - 499 mg/dL Very High > or = 500 mg/dL Serum or plasma cholesterol in HDL measurement (mass/volume)Ordered By: Ender Oates on 08-08-2022 Cholesterol in HDL [Mass/Vol] 60 mg/dL >40 [facility] Comment on above: The drugs N-Acetylcy steine and Metamizole may falsely depress this assay. Reference Range HDL <40 mg/dL Low HDL Cholesterol HDL >or= 60 mg/dL High HDL Cholesterol Serum or plasma cholesterol in VLDL measurement (mass/volume)Ordered By: Ender Oates on 08-08-2022 Cholesterol in VLDL [Mass/Vol] 29 mg/dL 5-40 [facility] Serum or plasma low density lipoprotein (LDL) cholesterol measurement (mass/volume)Ordered By: Ender Oates on 08-08-2022 Cholesterol in LDL [Mass/Vol] 53 mg/dL 0-130 [facility] Basophil percentageOrdered B y: Ender Oates on 07-14-2022 Bilirubin [Mass/Vol] 0.40 mg/dL 0.20-1.00 [facility] Comment on above: For patients on eltr ombopag therapy, use of Dimension [place] TBIL is not recommended. Chloride [Moles/Vol] 109 mmol/L 98-107 [facility] Glucose [Mass/Vol] 90 mg/dL 74-106 [facility] Potassium [Moles/Vol] 4.4 mmol/L 3.5-5.1 [facility] Protein [Mass/Vol] 6.7 g/dL 6.4-8.2 [facility] Sodium [Moles/Vol] 143 mmol/L 136-145 [facility] WBC (Bld) [#/Vol] 7.2 10*3/uL 4.4-11.0 [facility] Blood erythrocytes count (nu mber/volume)Ordered By: Ender Oates on 07-14-2022 RBC (Bld) [#/Vol] 4.48 10*6/uL 4.2-5.4 [facility] Blood hemoglobin measurement (mass/volume)Ordered By: Ender Oates on 07-14-2022 Hemoglobin (Bld) [Mass/Vol] 14.1 g/dL 12.0-15.0 [facility] Blood platelet mean volumeOr dered By: Ender Oates on 07-14-2022 Platelet mean volume (Bld) [Entitic vol] 11.5 fL 6.2-12.0 [facility] Determination of erythrocyte mean corpuscular volume (MCV)Ordered By: Ender Oates on 07-14-2022 MCV (RBC) [Entitic vol] 102.2 fL 81-99 [facility] Hematocrit Auto (Bld) [Volum e fraction]Ordered By: Ender Oates on 07-14-2022 Hematocrit (Bld) [Volume fraction] 45.8 % 37-47 [facility] Laboratory - Chemistry and C hemistry - challengeOrdered By: Ender Oates on 07-14-2022 ALP [Catalytic activity/Vol] 84 U/L 45-117 [facility] ALT [Catalytic activity/Vol] 16 U/L 13-56 [facility] CO2 [Moles/Vol] 32.0 mmol/L 21.0-32.0 [facility] Globulin (S) [Mass/Vol] 3.9 g/dL 2.2-4.2 [facility] Urea nitrogen/Creatinine [Mass ratio] 38.6 mg/mg 10-20 [facility] - Hematology and Cell countsOrdered By: Ender Oates on 07-14-2022 Erythrocyte distribution width (RBC) [Entitic vol] 54.3 fL 35.1-43.9 [facility] Erythrocyte distribution width (RBC) [Ratio] 14.5 % 11.6-14.6 [facility] MCH (RBC) [Entitic mass] 31.5 pg 27.0-32.0 [facility] MCHC Auto (RBC) [Mass/Vol]Or dered By: Ender Oates on 07-14-2022 MCHC (RBC) [Mass/Vol] 30.8 g/dL 32-36 [facility] No Panel InformationOrdered By: Ender Oates on 07-14-2022 Estimated GFR (MDRD) Amer 99 mL/min >60 [facility] Comment on above: GFR Calc Estimated GFR (MDRD) Non-Af Amer 82 mL/min >60 [facility] Comment on above: Non- GFR Calc Platelets bldOrdered By: Ronaldo Oates on 07-14-2022 Platelets (Bld) [#/Vol] 186 10*3/uL 150-450 [facility] Serum or plasma albumin tammie urement (mass/volume)Ordered By: Ender Oates on 07-14-2022 Albumin [Mass/Vol] 2.8 g/dL 3.2-5.0 [facility] Serum or plasma albumin/glob ulin mass ratioOrdered By: Ender Oates on 07-14-2022 Albumin/Globulin [Mass ratio] 0.7 {ratio} 0.9-2.4 [facility] Serum or plasma calcium tammie urement (mass/volume)Ordered By: Ender Oates on 07-14-2022 Calcium [Mass/Vol] 8.8 mg/dL 8.5-10.1 [facility] Serum or plasma creatinine m easurement (mass/volume)Ordered By: Ender Oates on 07-14-2022 Creatinine [Mass/Vol] 0.75 mg/dL 0.55-1.02 [facility] Comment on above: The validity of the calculated GFR & GFRAA in patients over 70 years has not been determined. Clinical correlation is essential. Serum or plasma urea nitroge n measurement (mass/volume)Ordered By: Ender Oates on 07-14-2022 Urea nitrogen [Mass/Vol] 29 mg/dL 7-18 [facility] Thin prep Papanicolaou smear with manual screeningOrdered By: Ender Oates on 07-14-2022 Thin prep Papanicolaou smear with manual screening 17 U/L 15-37 [facility] Thin prep Papanicolaou smear with manual screening 2 5-[address] [facility] [address] KNEE WO IVCON LTon 2022 CT KNEE WO IVCON LT * * *Final Report* * * DATE OF EXAM: Jun 12 2022 3:43PM [facility] 0083 - CT KNEE WO IVCON LT [...] abnormality. IMPRESSION: Intact TKA. No acute abnormality. [employer]: DIAZ Transcribe Date/Time: Jun 16 2022 8:28A Dictated by : DEJA LIU MD This examination was interpreted and the report reviewed and electronically signed by: DEJA LIU MD on Jun 16 2022 8:31AM EST [id number] N Normal [facility] Basophil percentageOrdered B y: Ender Oates on 06-09-2022 Bilirubin [Mass/Vol] 0.40 mg/dL 0.20-[facility].00 [facility] [facility] Comment on above: For patients on eltr ombopag therapy, use of Dimension [place] TBIL is not recommended. Chloride [Moles/Vol] 106 mmol/L 98-107 [facility] Glucose [Mass/Vol] 90 mg/dL 74-106 [facility] Potassium [Moles/Vol] 4.1 mmol/L 3.5-5.1 [facility] Protein [Mass/Vol] 6.5 g/dL 6.4-8.2 [facility] Sodium [Moles/Vol] 143 mmol/L 136-145 [facility] WBC (Bld) [#/Vol] 6.4 10*3/uL 4.4-11.0 [facility] Blood erythrocytes count (nu mber/volume)Ordered By: Ender Oates on 06-09-2022 RBC (Bld) [#/Vol] 4.36 10*6/uL 4.2-5.4 [facility] Blood hemoglobin measurement (mass/volume)Ordered By: Ender Oates on 06-09-2022 Hemoglobin (Bld) [Mass/Vol] 14.4 g/dL 12.0-15.0 [facility] Blood platelet mean volumeOr dered By: Ender Oates on 06-09-2022 Platelet mean volume (Bld) [Entitic vol] 11.1 fL 6.2-12.0 [facility] Determination of erythrocyte mean corpuscular volume (MCV)Ordered By: Ender Oates on 06-09-2022 MCV (RBC) [Entitic vol] 102.3 fL 81-99 [facility] Hematocrit Auto (Bld) [Volum e fraction]Ordered By: Ender Oates on 06-09-2022 Hematocrit (Bld) [Volume fraction] 44.6 % 37-47 [facility] - Chemistry and C hemistry - challengeOrdered By: Ender Oates on 06-09-2022 ALP [Catalytic activity/Vol] 67 U/L 45-117 [facility] ALT [Catalytic activity/Vol] 14 U/L 13-56 [facility] CO2 [Moles/Vol] 29.0 mmol/L 21.0-32.0 [facility] Globulin (S) [Mass/Vol] 3.7 g/dL 2.2-4.2 [facility] Urea nitrogen/Creatinine [Mass ratio] 31.0 mg/mg 10-20 [facility] - Hematology and Cell countsOrdered By: Ender Oates on 06-09-2022 Erythrocyte distribution width (RBC) [Entitic vol] 56.1 fL 35.1-43.9 [facility] Erythrocyte distribution width (RBC) [Ratio] 14.9 % 11.6-14.6 [facility] MCH (RBC) [Entitic mass] 33.0 pg 27.0-32.0 [facility] MCHC Auto (RBC) [Mass/Vol]Or dered By: Ender Oates on 06-09-2022 MCHC (RBC) [Mass/Vol] 32.3 g/dL 32-36 [facility] No Panel InformationOrdered By: Ender Oates on 06-09-2022 Estimated GFR (MDRD) Amer 106 mL/min >60 [facility] Comment on above: GFR Calc Estimated GFR (MDRD) Non-Af Amer 88 mL/min >60 [facility] Comment on above: Non- GFR Calc Platelets bldOrdered By: Ronaldo Oates on 06-09-2022 Platelets (Bld) [#/Vol] 183 10*3/uL 150-450 [facility] Serum or plasma albumin tammie urement (mass/volume)Ordered By: Ender Oates on 06-09-2022 Albumin [Mass/Vol] 2.8 g/dL 3.2-5.0 [facility] Serum or plasma albumin/glob ulin mass ratioOrdered By: Ender Oates on 06-09-2022 Albumin/Globulin [Mass ratio] 0.8 {ratio} 0.9-2.4 [facility] Serum or plasma calcium tammie urement (mass/volume)Ordered By: Ender Oates on 06-09-2022 Calcium [Mass/Vol] 8.6 mg/dL 8.5-10.1 [facility] Serum or plasma creatinine m easurement (mass/volume)Ordered By: Ender Oates on 06-09-2022 Creatinine [Mass/Vol] 0.71 mg/dL 0.55-1.02 [facility] Comment on above: The validity of the calculated GFR & GFRAA in patients over 70 years has not been determined. Clinical correlation is essential. Serum or plasma urea nitroge n measurement (mass/volume)Ordered By: Ender Oates on 06-09-2022 Urea nitrogen [Mass/Vol] 22 mg/dL 7-18 [facility] Thin prep Papanicolaou smear with manual screeningOrdered By: Ender Oates on 06-09-2022 Thin prep Papanicolaou smear with manual screening 13 U/L 15-37 [facility] Thin prep Papanicolaou smear with manual screening 8 5-15 [facility] Basophil percentageOrdered B y: Ender Oates on 05-22-2022 WBC (Bld) [#/Vol] 7.6 10*3/uL 4.4-11.0 [facility] Blood erythrocytes count (nu mber/volume)Ordered By: Ender Oates on 05-22-2022 RBC (Bld) [#/Vol] 4.63 10*6/uL 4.2-5.4 [facility] Blood hemoglobin measurement (mass/volume)Ordered By: Ender Oates on 05-22-2022 Hemoglobin (Bld) [Mass/Vol] 14.7 g/dL 12.0-15.0 [facility] Blood platelet mean volumeOr dered By: Ender Oates on 05-22-2022 Platelet mean volume (Bld) [Entitic vol] 11.7 fL 6.2-12.0 [facility] Determination of erythrocyte mean corpuscular volume (MCV)Ordered By: Ender Oates on 05-22-2022 MCV (RBC) [Entitic vol] 102.8 fL 81-99 [facility] Erythrocyte sedimentation ra teOrdered By: Ender Oates on 05-22-2022 ESR (Bld) [Velocity] 7 mm/h 0-30 [facility] Hematocrit Auto (Bld) [Volum e fraction]Ordered By: Ender Oates on 05-22-2022 Hematocrit (Bld) [Volume fraction] 47.6 % 37-47 [facility] - Hematology and Cell countsOrdered By: Ender Oates on 05-22-2022 Erythrocyte distribution width (RBC) [Entitic vol] 57.1 fL 35.1-43.9 [facility] Erythrocyte distribution width (RBC) [Ratio] 14.8 % 11.6-14.6 [facility] MCH (RBC) [Entitic mass] 31.7 pg 27.0-32.0 [facility] MCHC Auto (RBC) [Mass/Vol]Or dered By: Ender Oates on 05-22-2022 MCHC (RBC) [Mass/Vol] 30.9 g/dL 32-36 [facility] Platelets bldOrdered By: Ronaldo Oates on 05-22-2022 Platelets (Bld) [#/Vol] 179 10*3/uL 150-450 [facility] Serum or plasma C reactive p rotein measurement (mass/volume)Ordered By: Ender Oates on 05-22-2022 CRP [Mass/Vol] 4.40 mg/L 0.0-3.0 [facility] Comment on above: C-Reactive Protein ( CRP) provides useful information for thediagnosis, therapy and monitoring of inflammatory processesand associated diseases. For the evaluation of Relative Riskfor Cardiovascular Disease, a High Sensitivity CRP (HSCRP)should be ordered. XR KNEE POST OP 3V AP/LAT/ME RCHANT LEFTon 05-21-2022 [facility] XR Knee AP and Lateral and M erchantson 05-21-2022 IMPRESSION: Left total knee arthroplasty without complication on this single view. [employer]: [employer] Transcribe Date/Time: May 21 2022 1:32P Dictated by : KATHY KING MD This examination was interpreted and the report reviewed and electronically signed by: ARABELLA ALVARADO MD on May 21 2022 2:24PM [facility] DIVISION OF RADIOLOGY * * *Final [...] swelling, likely postoperative. DIVISION OF RADIOLOGY Provider, [facility] - 05/21/2022 * * *Final Report* * [...] arthroplasty without complication on this single view. [employer]: [employer] Transcribe Date/Time: May 21 2022 1:32P Dictated by : KATHY KING MD This examination was interpreted and the report reviewed and electronically signed by: ARABELLA ALVARADO MD on May 21 2022 2:24PM EST [facility] Radiology Study observation (narrative) [facility] XR Knee AP and Lateral and M erchantsOrdered By: [facility] Provider on 05-21-2022 [facility] No Panel InformationOrdered By: Ender Oates on 05-15-2022 Vitamin D 25-Hydroxy 36.0 ng/mL [facility] Comment on above: Vitamin D 25(OH) Sta tus Range Deficiency <20 ng/mL (50nmol/L) Insufficiency 20 - 30 ng/mL (50 - 75 nmol/L) Sufficiency 30 - 100 ng/mL (75 - 250 nmol/L) Toxicity >100 ng/mL (>250 nmol/L) Basophil percentageOrdered B y: Ender Oates on 05-10-2022 Bilirubin [Mass/Vol] 0.40 mg/dL 0.20-1.00 [facility] Comment on above: For patients on eltr ombopag therapy, use of Dimension [place] TBIL is not recommended. Chloride [Moles/Vol] 107 mmol/L 98-107 [facility] Glucose [Mass/Vol] 96 mg/dL 74-106 [facility] Potassium [Moles/Vol] 3.9 mmol/L 3.5-5.1 [facility] Protein [Mass/Vol] 6.2 g/dL 6.4-8.2 [facility] Sodium [Moles/Vol] 142 mmol/L 136-145 [facility] WBC (Bld) [#/Vol] 4.3 10*3/uL 4.4-11.0 [facility] Blood erythrocytes count (nu mber/volume)Ordered By: Ender Oates on 05-10-2022 RBC (Bld) [#/Vol] 4.39 10*6/uL 4.2-5.4 [facility] Blood hemoglobin measurement (mass/volume)Ordered By: Ender Oates on 05-10-2022 Hemoglobin (Bld) [Mass/Vol] 14.3 g/dL 12.0-15.0 [facility] Blood platelet mean volumeOr dered By: Ender Oates on 05-10-2022 Platelet mean volume (Bld) [Entitic vol] 11.5 fL 6.2-12.0 [facility] Determination of erythrocyte mean corpuscular volume (MCV)Ordered By: Ender Oates on 05-10-2022 MCV (RBC) [Entitic vol] 99.8 fL 81-99 [facility] Hematocrit Auto (Bld) [Volum e fraction]Ordered By: Ender Oates on 05-10-2022 Hematocrit (Bld) [Volume fraction] 43.8 % 37-47 [facility] - Chemistry and C hemistry - challengeOrdered By: Ender Oates on 05-10-2022 ALP [Catalytic activity/Vol] 73 U/L 45-117 [facility] ALT [Catalytic activity/Vol] 16 U/L 13-56 [facility] CO2 [Moles/Vol] 30.0 mmol/L 21.0-32.0 [facility] Globulin (S) [Mass/Vol] 3.2 g/dL 2.2-4.2 [facility] Urea nitrogen/Creatinine [Mass ratio] 29.5 mg/mg 10-20 [facility] - Hematology and Cell countsOrdered By: Ender Oates on 05-10-2022 Erythrocyte distribution width (RBC) [Entitic vol] 53.1 fL 35.1-43.9 [facility] Erythrocyte distribution width (RBC) [Ratio] 14.5 % 11.6-14.6 [facility] MCH (RBC) [Entitic mass] 32.6 pg 27.0-32.0 [facility] MCHC Auto (RBC) [Mass/Vol]Or dered By: Ender Oates on 05-10-2022 MCHC (RBC) [Mass/Vol] 32.6 g/dL 32-36 [facility] No Panel InformationOrdered By: Ender Oates on 05-10-2022 Estimated GFR (MDRD) Amer 106 mL/min >60 [facility] Comment on above: GFR Calc Estimated GFR (MDRD) Non-Af Amer 87 mL/min >60 [facility] Comment on above: Non- GFR Calc Valproic Acid (Depakene) Level < 3 ug/mL 50-100 [facility] Platelets bldOrdered By: Ronaldo Oates on 05-10-2022 Platelets (Bld) [#/Vol] 147 10*3/uL 150-450 [facility] Serum or plasma albumin tammie urement (mass/volume)Ordered By: Ender Oates on 05-10-2022 Albumin [Mass/Vol] 3.0 g/dL 3.2-5.0 [facility] Serum or plasma albumin/glob ulin mass ratioOrdered By: Ender Oates on 05-10-2022 Albumin/Globulin [Mass ratio] 0.9 {ratio} 0.9-2.4 [facility] Serum or plasma calcium tammie urement (mass/volume)Ordered By: Ender Oates on 05-10-2022 Calcium [Mass/Vol] 8.4 mg/dL 8.5-10.1 [facility] Serum or plasma creatinine m easurement (mass/volume)Ordered By: Ender Oates on 05-10-2022 Creatinine [Mass/Vol] 0.71 mg/dL 0.55-1.02 [facility] Comment on above: The validity of the calculated GFR & GFRAA in patients over 70 years has not been determined. Clinical correlation is essential. Serum or plasma urea nitroge n measurement (mass/volume)Ordered By: Ender Oates on 05-10-2022 Urea nitrogen [Mass/Vol] 21 mg/dL 7-18 [facility] Thin prep Papanicolaou smear with manual screeningOrdered By: Ender Oates on 05-10-2022 Thin prep Papanicolaou smear with manual screening 18 U/L 15-37 [facility] Thin prep Papanicolaou smear with manual screening 5 5-15 [facility] No Panel InformationOrdered By: Chet Angel on 05-01-2022 Thyroid Stimulating Hormone (TSH) 3.11 uIU/mL 0.358-3.74 [facility] Basophil percentageOrdered B y: Ender Oates on 04-14-2022 Bilirubin [Mass/Vol] 0.30 mg/dL 0.20-1.00 [facility] Comment on above: For patients on eltr ombopag therapy, use of Dimension [place] TBIL is not recommended. Chloride [Moles/Vol] 106 mmol/L 98-107 [facility] Glucose [Mass/Vol] 85 mg/dL 74-106 [facility] Potassium [Moles/Vol] 4.2 mmol/L 3.5-5.1 [facility] Protein [Mass/Vol] 6.6 g/dL 6.4-8.2 [facility] Sodium [Moles/Vol] 141 mmol/L 136-145 [facility] WBC (Bld) [#/Vol] 7.8 10*3/uL 4.4-11.0 [facility] Blood erythrocytes count (nu mber/volume)Ordered By: Ender Oates on 04-14-2022 RBC (Bld) [#/Vol] 4.00 10*6/uL 4.2-5.4 [facility] Blood hemoglobin measurement (mass/volume)Ordered By: Ender Oates on 04-14-2022 Hemoglobin (Bld) [Mass/Vol] 12.8 g/dL 12.0-15.0 [facility] Blood platelet mean volumeOr dered By: Ender Oates on 04-14-2022 Platelet mean volume (Bld) [Entitic vol] 10.9 fL 6.2-12.0 [facility] Determination of erythrocyte mean corpuscular volume (MCV)Ordered By: Ender Oates on 04-14-2022 MCV (RBC) [Entitic vol] 99.5 fL 81-99 [facility] Hematocrit Auto (Bld) [Volum e fraction]Ordered By: Ender Oates on 04-14-2022 Hematocrit (Bld) [Volume fraction] 39.8 % 37-47 [facility] - Chemistry and C hemistry - challengeOrdered By: Ender Oates on 04-14-2022 ALP [Catalytic activity/Vol] 75 U/L 45-117 [facility] ALT [Catalytic activity/Vol] 18 U/L 13-56 [facility] CO2 [Moles/Vol] 28.0 mmol/L 21.0-32.0 [facility] Globulin (S) [Mass/Vol] 3.9 g/dL 2.2-4.2 [facility] Urea nitrogen/Creatinine [Mass ratio] 36.9 mg/mg 10-20 [facility] - Hematology and Cell countsOrdered By: Ender Oates on 04-14-2022 Erythrocyte distribution width (RBC) [Entitic vol] 52.8 fL 35.1-43.9 [facility] Erythrocyte distribution width (RBC) [Ratio] 14.4 % 11.6-14.6 [facility] MCH (RBC) [Entitic mass] 32.0 pg 27.0-32.0 [facility] [Mass/Vol]Or dered By: Ender Oates on 04-14-2022 MCHC (RBC) [Mass/Vol] 32.2 g/dL 32-36 [facility] No Panel InformationOrdered By: Ender Oates on 04-14-2022 Estimated GFR (MDRD) Amer 117 mL/min >60 [facility] Comment on above: GFR Calc Estimated GFR (MDRD) Non-Af Amer 97 mL/min >60 [facility] Comment on above: Non- GFR Calc Platelets bldOrdered By: Ronaldo Oates on 04-14-2022 Platelets (Bld) [#/Vol] 162 10*3/uL 150-450 [facility] Serum or plasma albumin tammie urement (mass/volume)Ordered By: Ender Oates on 04-14-2022 Albumin [Mass/Vol] 2.7 g/dL 3.2-5.0 [facility] Serum or plasma albumin/glob ulin mass ratioOrdered By: Ender Oates on 04-14-2022 Albumin/Globulin [Mass ratio] 0.7 {ratio} 0.9-2.4 [facility] Serum or plasma calcium tammie urement (mass/volume)Ordered By: Ender Oates on 04-14-2022 Calcium [Mass/Vol] 8.2 mg/dL 8.5-10.1 [facility] Serum or plasma creatinine m easurement (mass/volume)Ordered By: Ender Oates on 04-14-2022 Creatinine [Mass/Vol] 0.65 mg/dL 0.55-1.02 [facility] Comment on above: The validity of the calculated GFR & GFRAA in patients over 70 years has not been determined. Clinical correlation is essential. Serum or plasma urea nitroge n measurement (mass/volume)Ordered By: Ender Oates on 04-14-2022 Urea nitrogen [Mass/Vol] 24 mg/dL 7-18 [facility] Thin prep Papanicolaou smear with manual screeningOrdered By: Ender Oates on 04-14-2022 Thin prep Papanicolaou smear with manual screening 18 U/L 15-37 [facility] Thin prep Papanicolaou smear with manual screening 7 5-15 [facility] Basophil percentageOrdered B y: Ender Oates on 03-10-2022 Bilirubin [Mass/Vol] 0.40 mg/dL 0.20-1.00 [facility] Comment on above: For patients on eltr ombopag therapy, use of Dimension [place] TBIL is not recommended. Chloride [Moles/Vol] 109 mmol/L 98-107 [facility] Glucose [Mass/Vol] 83 mg/dL 74-106 [facility] Potassium [Moles/Vol] 4.2 mmol/L 3.5-5.1 [facility] Protein [Mass/Vol] 6.9 g/dL 6.4-8.2 [facility] Sodium [Moles/Vol] 143 mmol/L 136-145 [facility] WBC (Bld) [#/Vol] 7.6 10*3/uL 4.4-11.0 [facility] Blood erythrocytes count (nu mber/volume)Ordered By: Ender Oates on 03-10-2022 RBC (Bld) [#/Vol] 4.43 10*6/uL 4.2-5.4 [facility] Blood hemoglobin measurement (mass/volume)Ordered By: Ender Oates on 03-10-2022 Hemoglobin (Bld) [Mass/Vol] 14.2 g/dL 12.0-15.0 [facility] Blood platelet mean volumeOr dered By: Ender Oates on 03-10-2022 Platelet mean volume (Bld) [Entitic vol] 11.6 fL 6.2-12.0 [facility] Determination of erythrocyte mean corpuscular volume (MCV)Ordered By: Ender Oates on 03-10-2022 MCV (RBC) [Entitic vol] 98.4 fL 81-99 [facility] Hematocrit Auto (Bld) [Volum e fraction]Ordered By: Ender Oates on 03-10-2022 Hematocrit (Bld) [Volume fraction] 43.6 % 37-47 [facility] - Chemistry and C hemistry - challengeOrdered By: Ender Oates on 03-10-2022 ALP [Catalytic activity/Vol] 67 U/L 45-117 [facility] ALT [Catalytic activity/Vol] 20 U/L 13-56 [facility] CO2 [Moles/Vol] 27.0 mmol/L 21.0-32.0 [facility] Globulin (S) [Mass/Vol] 3.9 g/dL 2.2-4.2 [facility] Urea nitrogen/Creatinine [Mass ratio] 39.6 mg/mg 10-20 [facility] - Hematology and Cell countsOrdered By: Ender Oates on 03-10-2022 Erythrocyte distribution width (RBC) [Entitic vol] 50.4 fL 35.1-43.9 [facility] Erythrocyte distribution width (RBC) [Ratio] 13.8 % 11.6-14.6 [facility] MCH (RBC) [Entitic mass] 32.1 pg 27.0-32.0 [facility] MCHC Auto (RBC) [Mass/Vol]Or dered By: Ender Oates on 03-10-2022 MCHC (RBC) [Mass/Vol] 32.6 g/dL 32-36 [facility] No Panel InformationOrdered By: Ender Oates on 03-10-2022 Estimated GFR (MDRD) Amer 127 mL/min >60 [facility] Comment on above: GFR Calc Estimated GFR (MDRD) Non-Af Amer 105 mL/min >60 [facility] Comment on above: Non- GFR Calc Platelets bldOrdered By: Ronaldo Oates on 03-10-2022 Platelets (Bld) [#/Vol] 163 10*3/uL 150-450 [facility] Serum or plasma albumin tammie urement (mass/volume)Ordered By: Ender Oates on 03-10-2022 Albumin [Mass/Vol] 3.0 g/dL 3.2-5.0 [facility] Serum or plasma albumin/glob ulin mass ratioOrdered By: Ender Oates on 03-10-2022 Albumin/Globulin [Mass ratio] 0.8 {ratio} 0.9-2.4 [facility] Serum or plasma calcium tammie urement (mass/volume)Ordered By: Ender Oates on 10-10-2022 Calcium [Mass/Vol] 9.0 mg/dL 8.5-10.1 [facility] Serum or plasma creatinine m easurement (mass/volume)Ordered By: Ender Oates on 03-10-2022 Creatinine [Mass/Vol] 0.61 mg/dL 0.55-1.02 [facility] Comment on above: The validity of the calculated GFR & GFRAA in patients over 70 years has not been determined. Clinical correlation is essential. Serum or plasma urea nitroge n measurement (mass/volume)Ordered By: Ender Oates on 03-10-2022 Urea nitrogen [Mass/Vol] 24 mg/dL 7-18 [facility] Thin prep Papanicolaou smear with manual screeningOrdered By: Ender Oates on 03-10-2022 Thin prep Papanicolaou smear with manual screening 15 U/L 15-37 [facility] Thin prep Papanicolaou smear with manual screening 7 5-15 [facility] Basophil percentageon 2021 Bilirubin [Mass/Vol] 0.30 mg/dL 0.20-1.00 [facility] Work Phone: Comment on above: For patients on eltr ombopag therapy, use of Dimension [place] TBIL is not recommended. Chloride [Moles/Vol] 105 mmol/L 98-107 [facility] Work Phone: Cholesterol [Mass/Vol] 114 mg/dL <200 [facility] Work Phone: Comment on above: <200 mg/dL Desirable 200-240 mg/dL Borderline >240 mg/dL High Risk Glucose [Mass/Vol] 79 mg/dL 74-106 [facility] Work Phone: Potassium [Moles/Vol] 4.1 mmol/L 3.5-5.1 [facility] Work Phone: Protein [Mass/Vol] 6.7 g/dL 6.4-8.2 [facility] Work Phone: Sodium [Moles/Vol] 139 mmol/L 136-145 [facility] Work Phone: Triglyceride [Mass/Vol] 94 mg/dL <199 [facility] Work Phone: Comment on above: The drugs N-Acetylcy steine and Metamizole may falsely depress this assay.Serum Triglycerides Reference Interval Normal <150 mg/dL Borderline high 150 - 199 mg/dL High 200 - 499 mg/dL Very High > or = 500 mg/dL WBC (Bld) [#/Vol] 7.5 10*3/uL 4.4-11.0 [facility] Work Phone: [phone] Blood erythrocytes count (nu mber/volume)on 02-10-2022 RBC (Bld) [#/Vol] 4.45 10*6/uL 4.2-5.4 [facility] Work Phone: [phone] Blood hemoglobin measurement (mass/volume)on 02-10-2022 Hemoglobin (Bld) [Mass/Vol] 14.7 g/dL 12.0-15.0 [facility] Work Phone: [phone] Blood platelet mean volumeon 02-10-2022 Platelet mean volume (Bld) [Entitic vol] 10.7 fL 6.2-12.0 [facility] Work Phone: [phone] Determination of erythrocyte mean corpuscular volume (MCV)on 02-10-2022 MCV (RBC) [Entitic vol] 100.2 fL 81-99 [facility] Work Phone: [phone] Hematocrit Auto (Bld) [Volum e fraction]on 02-10-2022 Hematocrit (Bld) [Volume fraction] 44.6 % 37-47 [facility] Work Phone: [phone] Laboratory - Chemistry and C hemistry - challengeon 02-10-2022 ALP [Catalytic activity/Vol] 58 U/L 45-117 [facility] Work Phone: [phone] ALT [Catalytic activity/Vol] 18 U/L 13-56 [facility] Work Phone: [phone] CO2 [Moles/Vol] 29.0 mmol/L 21.0-32.0 [facility] Work Phone: [phone] Globulin (S) [Mass/Vol] 3.9 g/dL 2.2-4.2 [facility] Work Phone: Urea nitrogen/Creatinine [Mass ratio] 40.5 mg/mg 10-20 [facility] Work Phone: Laboratory - Hematology and Cell countson 02-10-2022 Erythrocyte distribution width (RBC) [Entitic vol] 51.3 fL 35.1-43.9 [facility] Work Phone: [phone] Erythrocyte distribution width (RBC) [Ratio] 13.9 % 11.6-14.6 [facility] Work Phone: MCH (RBC) [Entitic mass] 33.0 pg 27.0-32.0 [facility] Work Phone: MCHC Auto (RBC) [Mass/Vol]on 02-10-2022 MCHC (RBC) [Mass/Vol] 33.0 g/dL 32-36 [facility] Work Phone: No Panel Informationon 02-10 Estimated GFR (MDRD) Amer 137 mL/min >60 [facility] Work Phone: Comment on above: GFR Calc Estimated GFR (MDRD) Non-Af Amer 113 mL/min >60 [facility] Work Phone: Comment on above: Non- GFR Calc Valproic Acid (Depakene) Level 34 ug/mL 50-100 [facility] Work Phone: Platelets bldon 02-10-2022 Platelets (Bld) [#/Vol] 169 10*3/uL 150-450 [facility] Work Phone: Serum or plasma albumin tammie urement (mass/volume)on 02-10-2022 Albumin [Mass/Vol] 2.8 g/dL 3.2-5.0 [facility] Work Phone: Serum or plasma albumin/glob ulin mass ratioon 02-10-2022 Albumin/Globulin [Mass ratio] 0.7 {ratio} 0.9-2.4 [facility] Work Phone: Serum or plasma calcium tammie urement (mass/volume)on 02-10-2022 Calcium [Mass/Vol] 8.4 mg/dL 8.5-10.1 [facility] Work Phone: [phone] Serum or plasma cholesterol in HDL measurement (mass/volume)on 02-10-2022 Cholesterol in HDL [Mass/Vol] 50 mg/dL >40 [facility] Work Phone: Comment on above: The drugs N-Acetylcy steine and Metamizole may falsely depress this assay. Reference Range HDL <40 mg/dL Low HDL Cholesterol HDL >or= 60 mg/dL High HDL Cholesterol Serum or plasma cholesterol in VLDL measurement (mass/volume)on 02-10-2022 Cholesterol in VLDL [Mass/Vol] 19 mg/dL 5-40 [facility] Work Phone: [phone] Serum or plasma creatinine m easurement (mass/volume)on 02-10-2022 Creatinine [Mass/Vol] 0.57 mg/dL 0.55-1.02 [facility] Work Phone: Comment on above: The validity of the calculated GFR & GFRAA in patients over 70 years has not been determined. Clinical correlation is essential. Serum or plasma low density lipoprotein (LDL) cholesterol measurement (mass/volume)on 02-10-2022 Cholesterol in LDL [Mass/Vol] 45 mg/dL 0-130 [facility] Work Phone: Serum or plasma urea nitroge n measurement (mass/volume)on 02-10-2022 Urea nitrogen [Mass/Vol] 23 mg/dL 7-18 [facility] Work Phone: [phone] Thin prep Papanicolaou smear with manual screeningon 02-10-2022 Thin prep Papanicolaou smear with manual screening 15 U/L 15-37 [facility] Work Phone: [phone] Thin prep Papanicolaou smear with manual screening 5 5-15 [facility] Work Phone: Basophil percentageon 2021 Bilirubin [Mass/Vol] 0.50 mg/dL 0.20-1.00 [facility] Work Phone: [phone] Comment on above: For patients on eltr ombopag therapy, use of Dimension [place] TBIL is not recommended. Chloride [Moles/Vol] 105 mmol/L 98-107 [facility] Work Phone: [phone] Glucose [Mass/Vol] 83 mg/dL 74-106 [facility] Work Phone: [phone] Potassium [Moles/Vol] 3.9 mmol/L 3.5-5.1 [facility] Work Phone: [phone] Protein [Mass/Vol] 6.5 g/dL 6.4-8.2 [facility]: [phone] Sodium [Moles/Vol] 140 mmol/L 136-145 [facility] Work Phone: [phone] WBC (Bld) [#/Vol] 7.1 10*3/uL 4.4-11.0 [facility] Work Phone: [phone] Blood erythrocytes count (nu mber/volume)on 01-06-2022 RBC (Bld) [#/Vol] 4.36 10*6/uL 4.2-5.4 [facility]: [phone] Blood hemoglobin measurement (mass/volume)on 01-06-2022 Hemoglobin (Bld) [Mass/Vol] 14.0 g/dL 12.0-15.0 [facility] Work Phone: [phone] Blood platelet mean volumeon 01-06-2022 Platelet mean volume (Bld) [Entitic vol] 11.0 fL 6.2-12.0 [facility] Work Phone: [phone] Determination of erythrocyte mean corpuscular volume (MCV)on 01-06-2022 MCV (RBC) [Entitic vol] 99.5 fL 81-99 [facility] Work Phone: [phone] Hematocrit Auto (Bld) [Volum e fraction]on 01-06-2022 Hematocrit (Bld) [Volume fraction] 43.4 % 37-47 [facility] Work Phone: [phone] Laboratory - Chemistry and C hemistry - challengeon 01-06-2022 ALP [Catalytic activity/Vol] 61 U/L 45-117 [facility] Work Phone: [phone] ALT [Catalytic activity/Vol] 18 U/L 13-56 [facility] Work Phone: [phone] CO2 [Moles/Vol] 34.0 mmol/L 21.0-32.0 [facility] Work Phone: [phone] Globulin (S) [Mass/Vol] 3.8 g/dL 2.2-4.2 [facility] Work Phone: [phone] Urea nitrogen/Creatinine [Mass ratio] 37.6 mg/mg 10-20 [facility] Work Phone: [phone] Laboratory - Hematology and Cell countson 01-06-2022 Erythrocyte distribution width (RBC) [Entitic vol] 54.3 fL 35.1-43.9 [facility] Work Phone: [phone] Erythrocyte distribution width (RBC) [Ratio] 14.6 % 11.6-14.6 [facility] Work Phone: [phone] MCH (RBC) [Entitic mass] 32.1 pg 27.0-32.0 [facility] Work Phone: [phone] MCHC Auto (RBC) [Mass/Vol]on 01-06-2022 MCHC (RBC) [Mass/Vol] 32.3 g/dL 32-36 [facility] Work Phone: [phone] Panel Informationon 01-06 Estimated GFR (MDRD) Amer 133 mL/min >60 [facility] Work Phone: [phone] Comment on above: GFR Calc Estimated GFR (MDRD) Non-Af Amer 110 mL/min >60 [facility] Work Phone: [phone] Comment on above: Non- GFR Calc Platelets bldon 01-06-2022 Platelets (Bld) [#/Vol] 169 10*3/uL 150-450 [facility] Work Phone: [phone] Serum or plasma albumin tammie urement (mass/volume)on 01-06-2022 Albumin [Mass/Vol] 2.7 g/dL 3.2-5.0 [facility] Work Phone: Serum or plasma albumin/glob ulin mass ratioon 01-06-2022 Albumin/Globulin [Mass ratio] 0.7 {ratio} 0.9-2.4 [facility] Work Phone: Serum or plasma calcium tammie urement (mass/volume)on 01-06-2022 Calcium [Mass/Vol] 8.3 mg/dL 8.5-10.1 [facility] Work Phone: Serum or plasma creatinine m easurement (mass/volume)on 01-06-2022 Creatinine [Mass/Vol] 0.58 mg/dL 0.55-1.02 [facility] Work Phone: Comment on above: The validity of the calculated GFR & GFRAA in patients over 70 years has not been determined. Clinical correlation is essential. Serum or plasma urea nitroge n measurement (mass/volume)on 01-06-2022 Urea nitrogen [Mass/Vol] 22 mg/dL 7-18 [facility] Work Phone: Thin prep Papanicolaou smear with manual screeningon 01-06-2022 Thin prep Papanicolaou smear with manual screening 16 U/L 15-37 [facility] Work Phone: Thin prep Papanicolaou smear with manual screening 1 5-15 [facility] Work Phone: Basophil percentageon 2021 Cholesterol [Mass/Vol] 141 mg/dL <200 [facility] Work Phone: Comment on above: <200 mg/dL Desirable 200-240 mg/dL Borderline >240 mg/dL High Risk Triglyceride [Mass/Vol] 171 mg/dL <199 [facility] Work Phone: Comment on above: The drugs N-Acetylcy steine and Metamizole may falsely depress this assay.Serum Triglycerides Reference Interval Normal <150 mg/dL Borderline high 150 - 199 mg/dL High 200 - 499 mg/dL Very High > or = 500 mg/dL Serum or plasma cholesterol in HDL measurement (mass/volume)on 12-27-2021 Cholesterol in HDL [Mass/Vol] 47 mg/dL >40 [facility] Work Phone: Comment on above: The drugs N-Acetylcy steine and Metamizole may falsely depress this assay. Reference Range HDL <40 mg/dL Low HDL Cholesterol HDL >or= 60 mg/dL High HDL Cholesterol Serum or plasma cholesterol in VLDL measurement (mass/volume)on 12-27-2021 Cholesterol in VLDL [Mass/Vol] 34 mg/dL 5-40 [facility] Work Phone: Serum or plasma low density lipoprotein (LDL) cholesterol measurement (mass/volume)on 12-27-2021 Cholesterol in LDL [Mass/Vol] 60 mg/dL 0-130 [facility] Work Phone: Basophil percentageon 2021 Bilirubin [Mass/Vol] 0.30 mg/dL 0.20-1.00 [facility] Work Phone: Comment on above: For patients on eltr ombopag therapy, use of Dimension [place] TBIL is not recommended. Chloride [Moles/Vol] 101 mmol/L 98-107 [facility] Work Phone: Glucose [Mass/Vol] 74 mg/dL 74-106 [facility] Work Phone: Potassium [Moles/Vol] 4.6 mmol/L 3.5-5.1 [facility] Work Phone: [phone] Protein [Mass/Vol] 7.9 g/dL 6.4-8.2 [facility] Work Phone: Sodium [Moles/Vol] 139 mmol/L 136-145 [facility] Work Phone: [phone] WBC (Bld) [#/Vol] 7.5 10*3/uL 4.4-11.0 [facility] Work Phone: Blood erythrocytes count (nu mber/volume)on 12-09-2021 RBC (Bld) [#/Vol] 4.80 10*6/uL 4.2-5.4 [facility] Work Phone: Blood hemoglobin measurement (mass/volume)on 12-09-2021 Hemoglobin (Bld) [Mass/Vol] 15.4 g/dL 12.0-15.0 [facility] Work Phone: [phone] Blood platelet mean volumeon 12-09-2021 Platelet mean volume (Bld) [Entitic vol] 11.3 fL 6.2-12.0 [facility] Work Phone: Determination of erythrocyte mean corpuscular volume (MCV)on 12-09-2021 MCV (RBC) [Entitic vol] 103.1 fL 81-99 [facility] Work Phone: [phone] Hematocrit Auto (Bld) [Volum e fraction]on 12-09-2021 Hematocrit (Bld) [Volume fraction] 49.5 % 37-47 [facility] Work Phone: Laboratory - Chemistry and C hemistry - challengeon 12-09-2021 ALP [Catalytic activity/Vol] 76 U/L 45-117 [facility] Work Phone: [phone] ALT [Catalytic activity/Vol] 21 U/L 13-56 [facility] Work Phone: [phone] CO2 [Moles/Vol] 28.0 mmol/L 21.0-32.0 [facility] Work Phone: [phone] Globulin (S) [Mass/Vol] 4.5 g/dL 2.2-4.2 [facility] Work Phone: [phone] Urea nitrogen/Creatinine [Mass ratio] 36.1 mg/mg 10-20 [facility] Work Phone: Laboratory - Hematology and Cell countson 12-09-2021 Erythrocyte distribution width (RBC) [Entitic vol] 57.3 fL 35.1-43.9 [facility] Work Phone: Erythrocyte distribution width (RBC) [Ratio] 14.9 % 11.6-14.6 [facility] Work Phone: MCH (RBC) [Entitic mass] 32.1 pg 27.0-32.0 [facility] Work Phone: MCHC Auto (RBC) [Mass/Vol]on 12-09-2021 MCHC (RBC) [Mass/Vol] 31.1 g/dL 32-36 [facility] Work Phone: No Panel Informationon 12-09 Estimated GFR (MDRD) Amer 109 mL/min >60 [facility] Work Phone: Comment on above: GFR Calc Estimated GFR (MDRD) Non-Af Amer 90 mL/min >60 [facility] Work Phone: Comment on above: Non- GFR Calc Platelets bldon 12-09-2021 Platelets (Bld) [#/Vol] 189 10*3/uL 150-450 [facility] Work Phone: Serum or plasma albumin tammie urement (mass/volume)on 12-09-2021 Albumin [Mass/Vol] 3.4 g/dL 3.2-5.0 [facility] Work Phone: Serum or plasma albumin/glob ulin mass ratioon 12-09-2021 Albumin/Globulin [Mass ratio] 0.8 {ratio} 0.9-2.4 [facility] Work Phone: Serum or plasma calcium tammie urement (mass/volume)on 12-09-2021 Calcium [Mass/Vol] 9.4 mg/dL 8.5-10.1 [facility] Work Phone: Serum or plasma creatinine m easurement (mass/volume)on 12-09-2021 Creatinine [Mass/Vol] 0.69 mg/dL 0.55-1.02 [facility] Work Phone: Comment on above: The validity of the calculated GFR & GFRAA in patients over 70 years has not been determined. Clinical correlation is essential. Serum or plasma urea nitroge n measurement (mass/volume)on 12-09-2021 Urea nitrogen [Mass/Vol] 25 mg/dL 7-18 [facility] Work Phone: Thin prep Papanicolaou smear with manual screeningon 12-09-2021 Thin prep Papanicolaou smear with manual screening 25 U/L 15-37 [facility] Work Phone: [phone] Thin prep Papanicolaou smear with manual screening 10 5-15 [facility] Work Phone: Basophil percentageon 2021 Bilirubin [Mass/Vol] 0.40 mg/dL 0.20-1.00 [facility] Work Phone: [phone] Comment on above: For patients on eltr ombopag therapy, use of Dimension [place] TBIL is not recommended. Chloride [Moles/Vol] 104 mmol/L 98-107 [facility] Work Phone: [phone] Glucose [Mass/Vol] 71 mg/dL 74-106 [facility] Work Phone: [phone] Potassium [Moles/Vol] 4.0 mmol/L 3.5-5.1 [facility] Work Phone: [phone] Protein [Mass/Vol] 6.7 g/dL 6.4-8.2 [facility] Work Phone: [phone] Sodium [Moles/Vol] 137 mmol/L 136-145 [facility] Work Phone: [phone] WBC (Bld) [#/Vol] 6.7 10*3/uL 4.4-11.0 [facility] Work Phone: [phone] Blood erythrocytes count (nu mber/volume)on 11-11-2021 RBC (Bld) [#/Vol] 4.37 10*6/uL 4.2-5.4 [facility] Work Phone: [phone] Blood hemoglobin measurement (mass/volume)on 11-11-2021 Hemoglobin (Bld) [Mass/Vol] 14.1 g/dL 12.0-15.0 [facility] Work Phone: [phone] Blood platelet mean volumeon 11-11-2021 Platelet mean volume (Bld) [Entitic vol] 10.9 fL 6.2-12.0 [facility] Work Phone: [phone] Determination of erythrocyte mean corpuscular volume (MCV)on 11-11-2021 MCV (RBC) [Entitic vol] 98.2 fL 81-99 [facility] Work Phone: [phone] Hematocrit Auto (Bld) [Volum e fraction]on 11-11-2021 Hematocrit (Bld) [Volume fraction] 42.9 % 37-47 [facility] Work Phone: [phone] Laboratory - Chemistry and C hemistry - challengeon 11-11-2021 ALP [Catalytic activity/Vol] 60 U/L 45-117 [facility] Work Phone: [phone] ALT [Catalytic activity/Vol] 25 U/L 13-56 [facility] Work Phone: [phone] CO2 [Moles/Vol] 28.0 mmol/L 21.0-32.0 [facility] Work Phone: [phone] Globulin (S) [Mass/Vol] 3.9 g/dL 2.2-4.2 [facility] Work Phone: [phone] Urea nitrogen/Creatinine [Mass ratio] 43.8 mg/mg 10-20 [facility] Work Phone: [phone] Laboratory - Hematology and Cell countson 11-11-2021 Erythrocyte distribution width (RBC) [Entitic vol] 52.9 fL 35.1-43.9 [facility] Work Phone: [phone] Erythrocyte distribution width (RBC) [Ratio] 14.7 % 11.6-14.6 [facility] Work Phone: [phone] MCH (RBC) [Entitic mass] 32.3 pg 27.0-32.0 [facility] Work Phone: [phone] MCHC Auto (RBC) [Mass/Vol]on 11-11-2021 MCHC (RBC) [Mass/Vol] 32.9 g/dL 32-36 [facility] Work Phone: No Panel Informationon 11-11 Estimated GFR (MDRD) Amer 125 mL/min >60 [facility] Work Phone: Comment on above: GFR Calc Estimated GFR (MDRD) Non-Af Amer 103 mL/min >60 [facility] Work Phone: Comment on above: Non- GFR Calc Platelets bldon 11-11-2021 Platelets (Bld) [#/Vol] 189 10*3/uL 150-450 [facility] Work Phone: Serum or plasma albumin tammie urement (mass/volume)on 11-11-2021 Albumin [Mass/Vol] 2.8 g/dL 3.2-5.0 [facility] Work Phone: Serum or plasma albumin/glob ulin mass ratioon 11-11-2021 Albumin/Globulin [Mass ratio] 0.7 {ratio} 0.9-2.4 [facility] Work Phone: [phone] Serum or plasma calcium tammie urement (mass/volume)on 11-11-2021 Calcium [Mass/Vol] 8.5 mg/dL 8.5-10.1 [facility] Work Phone: Serum or plasma creatinine m easurement (mass/volume)on 11-11-2021 Creatinine [Mass/Vol] 0.62 mg/dL 0.55-1.02 [facility] Work Phone: Comment on above: The validity of the calculated GFR & GFRAA in patients over 70 years has not been determined. Clinical correlation is essential. Serum or plasma urea nitroge n measurement (mass/volume)on 11-11-2021 Urea nitrogen [Mass/Vol] 27 mg/dL 7-18 [facility] Work Phone: [phone] Thin prep Papanicolaou smear with manual screeningon 11-11-2021 Thin prep Papanicolaou smear with manual screening 26 U/L 15-37 [facility] Work Phone: [phone] Thin prep Papanicolaou smear with manual screening 5 5-15 [facility] Work Phone: No Panel Informationon 11-08 Valproic Acid (Depakene) Level 30 ug/mL 50-100 [facility] Work Phone: Basophil percentageon 2021 Bilirubin [Mass/Vol] 0.40 mg/dL 0.20-1.00 [facility] Work Phone: [phone] Comment on above: For patients on eltr ombopag therapy, use of Dimension [place] TBIL is not recommended. Chloride [Moles/Vol] 108 mmol/L 98-107 [facility] Work Phone: [phone] Glucose [Mass/Vol] 100 mg/dL 74-106 [facility] Work Phone: [phone] Comment on above: Fasting Glucose resu lt from 100 to 125 mg/dL suggests IMPAIRED HOMEOSTASIS per A.D.A. criteria. Potassium [Moles/Vol] 4.4 mmol/L 3.5-5.1 [facility] Work Phone: [phone] Protein [Mass/Vol] 7.9 g/dL 6.4-8.2 [facility] Work Phone: [phone] Sodium [Moles/Vol] 139 mmol/L 136-145 [facility] Work Phone: [phone] WBC (Bld) [#/Vol] 9.3 10*3/uL 4.4-11.0 [facility] Work Phone: [phone] Blood erythrocytes count (nu mber/volume)on 10-07-2021 RBC (Bld) [#/Vol] 4.96 10*6/uL 4.2-5.4 [facility] Work Phone: [phone] Blood hemoglobin measurement (mass/volume)on 10-07-2021 Hemoglobin (Bld) [Mass/Vol] 15.5 g/dL 12.0-15.0 [facility] Work Phone: [phone] Blood platelet mean volumeon 10-07-2021 Platelet mean volume (Bld) [Entitic vol] 11.6 fL 6.2-12.0 [facility] Work Phone: [phone] Determination of erythrocyte mean corpuscular volume (MCV)on 10-07-2021 MCV (RBC) [Entitic vol] 99.6 fL 81-99 [facility] Work Phone: [phone] Hematocrit Auto (Bld) [Volum e fraction]on 10-07-2021 Hematocrit (Bld) [Volume fraction] 49.4 % 37-47 [facility] Work Phone: [phone] Laboratory - Chemistry and C hemistry - challengeon 10-07-2021 ALP [Catalytic activity/Vol] 74 U/L 45-117 [facility] Work Phone: [phone] ALT [Catalytic activity/Vol] 17 U/L 13-56 [facility] Work Phone: [phone] CO2 [Moles/Vol] 27.0 mmol/L 21.0-32.0 [facility] Work Phone: [phone] Globulin (S) [Mass/Vol] 4.7 g/dL 2.2-4.2 [facility] Work Phone: [phone] Urea nitrogen/Creatinine [Mass ratio] 43.1 mg/mg 10-20 [facility] Work Phone: [phone] Laboratory - Hematology and Cell countson 10-07-2021 Erythrocyte distribution width (RBC) [Entitic vol] 52.7 fL 35.1-43.9 [facility] Work Phone: [phone] Erythrocyte distribution width (RBC) [Ratio] 14.4 % 11.6-14.6 [facility] Work Phone: [phone] MCH (RBC) [Entitic mass] 31.3 pg 27.0-32.0 [facility] Work Phone: [phone] MCHC Auto (RBC) [Mass/Vol]on 10-07-2021 MCHC (RBC) [Mass/Vol] 31.4 g/dL 32-36 [facility] Work Phone: [phone] No Panel Informationon 10-07 Estimated GFR (MDRD) Amer 101 mL/min >60 [facility] Work Phone: [phone] Comment on above: GFR Calc Estimated GFR (MDRD) Non-Af Amer 83 mL/min >60 [facility] Work Phone: [phone] Comment on above: Non- GFR Calc Platelets bldon 10-07-2021 Platelets (Bld) [#/Vol] 220 10*3/uL 150-450 [facility] Work Phone: Serum or plasma albumin tammie urement (mass/volume)on 10-07-2021 Albumin [Mass/Vol] 3.2 g/dL 3.2-5.0 [facility] Work Phone: [phone] Serum or plasma albumin/glob ulin mass ratioon 10-07-2021 Albumin/Globulin [Mass ratio] 0.7 {ratio} 0.9-2.4 [facility] Work Phone: Serum or plasma calcium tammie urement (mass/volume)on 10-07-2021 Calcium [Mass/Vol] 9.0 mg/dL 8.5-10.1 [facility] Work Phone: Serum or plasma creatinine m easurement (mass/volume)on 10-07-2021 Creatinine [Mass/Vol] 0.74 mg/dL 0.55-1.02 [facility] Work Phone: Comment on above: The validity of the calculated GFR & GFRAA in patients over 70 years has not been determined. Clinical correlation is essential. Serum or plasma urea nitroge n measurement (mass/volume)on 10-07-2021 Urea nitrogen [Mass/Vol] 32 mg/dL 7-18 [facility] Work Phone: Thin prep Papanicolaou smear with manual screeningon 10-07-2021 Thin prep Papanicolaou smear with manual screening 16 U/L 15-37 [facility] Work Phone: [phone] Thin prep Papanicolaou smear with manual screening 4 5-15 [facility] Work Phone: Basophil percentageon 2021 Bilirubin [Mass/Vol] 0.50 mg/dL 0.20-1.00 [facility] Work Phone: Comment on above: For patients on eltr ombopag therapy, use of Dimension [place] TBIL is not recommended. Chloride [Moles/Vol] 103 mmol/L 98-107 [facility] Work Phone: [phone] Glucose [Mass/Vol] 93 mg/dL 74-106 [facility] Work Phone: [phone] Potassium [Moles/Vol] 4.4 mmol/L 3.5-5.1 [facility] Work Phone: [phone] Comment on above: Slight Hemolysis, Re sult may be falsely increased. Protein [Mass/Vol] 7.7 g/dL 6.4-8.2 [facility] Work Phone: [phone] Sodium [Moles/Vol] 137 mmol/L 136-145 [facility] Work Phone: [phone] WBC (Bld) [#/Vol] 8.4 10*3/uL 4.4-11.0 [facility] Work Phone: [phone] Blood erythrocytes count (nu mber/volume)on 09-09-2021 RBC (Bld) [#/Vol] 4.68 10*6/uL 4.2-5.4 [facility] Work Phone: [phone] Blood hemoglobin measurement (mass/volume)on 09-09-2021 Hemoglobin (Bld) [Mass/Vol] 14.4 g/dL 12.0-15.0 [facility] Work Phone: [phone] Blood platelet mean volumeon 09-09-2021 Platelet mean volume (Bld) [Entitic vol] 11.3 fL 6.2-12.0 [facility] Work Phone: [phone] Determination of erythrocyte mean corpuscular volume (MCV)on 09-09-2021 MCV (RBC) [Entitic vol] 96.6 fL 81-99 [facility] Work Phone: [phone] Hematocrit Auto (Bld) [Volum e fraction]on 09-09-2021 Hematocrit (Bld) [Volume fraction] 45.2 % 37-47 [facility] Work Phone: [phone] Laboratory - Chemistry and C hemistry - challengeon 09-09-2021 ALP [Catalytic activity/Vol] 75 U/L 45-117 [facility] Work Phone: ALT [Catalytic activity/Vol] 22 U/L 13-56 [facility] Work Phone: [phone] CO2 [Moles/Vol] 28.0 mmol/L 21.0-32.0 [facility] Work Phone: [phone] Globulin (S) [Mass/Vol] 4.4 g/dL 2.2-4.2 [facility] Work Phone: [phone] Urea nitrogen/Creatinine [Mass ratio] 39.4 mg/mg 10-20 [facility] Work Phone: [phone] Laboratory - Hematology and Cell countson 09-09-2021 Erythrocyte distribution width (RBC) [Entitic vol] 51.3 fL 35.1-43.9 [facility] Work Phone: [phone] Erythrocyte distribution width (RBC) [Ratio] 14.4 % 11.6-14.6 [facility] Work Phone: [phone] MCH (RBC) [Entitic mass] 30.8 pg 27.0-32.0 [facility] Work Phone: [phone] MCHC Auto (RBC) [Mass/Vol]on 09-09-2021 MCHC (RBC) [Mass/Vol] 31.9 g/dL 32-36 [facility] Work Phone: [phone] Panel Informationon 09-09 Estimated GFR (MDRD) Amer 102 mL/min >60 [facility] Work Phone: [phone] Comment on above: GFR Calc Estimated GFR (MDRD) Non-Af Amer 84 mL/min >60 [facility] Work Phone: [phone] Comment on above: Non- GFR Calc Platelets bldon 09-09-2021 Platelets (Bld) [#/Vol] 215 10*3/uL 150-450 [facility] Work Phone: [phone] Serum or plasma albumin tammie urement (mass/volume)on 09-09-2021 Albumin [Mass/Vol] 3.3 g/dL 3.2-5.0 [facility] Work Phone: [phone] Serum or plasma albumin/glob ulin mass ratioon 09-09-2021 Albumin/Globulin [Mass ratio] 0.8 {ratio} 0.9-2.4 [facility] Work Phone: [phone] Serum or plasma calcium tammie urement (mass/volume)on 09-09-2021 Calcium [Mass/Vol] 8.4 mg/dL 8.5-10.1 [facility] Work Phone: [phone] Serum or plasma creatinine m easurement (mass/volume)on 09-09-2021 Creatinine [Mass/Vol] 0.74 mg/dL 0.55-1.02 [facility] Work Phone: Comment on above: The validity of the calculated GFR & GFRAA in patients over 70 years has not been determined. Clinical correlation is essential. Serum or plasma urea nitroge n measurement (mass/volume)on 09-09-2021 Urea nitrogen [Mass/Vol] 29 mg/dL 7-18 [facility] Work Phone: [phone] Thin prep Papanicolaou smear with manual screeningon 09-09-2021 Thin prep Papanicolaou smear with manual screening 21 U/L 15-37 [facility] Work Phone: Comment on above: Slight Hemolysis, Re sult may be falsely increased. Thin prep Papanicolaou smear with manual screening 6 5-15 [facility] Work Phone: Basophil percentageon 2021 Bilirubin [Mass/Vol] 0.30 mg/dL 0.20-1.00 [facility] Work Phone: [phone] Comment on above: For patients on eltr ombopag therapy, use of Dimension [place] TBIL is not recommended. Chloride [Moles/Vol] 103 mmol/L 98-107 [facility] Work Phone: [phone] Cholesterol [Mass/Vol] 149 mg/dL <200 [facility] Work Phone: [phone] Comment on above: <200 mg/dL Desirable 200-240 mg/dL Borderline >240 mg/dL High Risk Glucose [Mass/Vol] 110 mg/dL 74-106 [facility] Work Phone: [phone] Comment on above: Fasting Glucose resu lt from 100 to 125 mg/dL suggests IMPAIRED HOMEOSTASIS per A.D.A. criteria. Potassium [Moles/Vol] 4.3 mmol/L 3.5-5.1 [facility] Work Phone: [phone] Protein [Mass/Vol] 7.2 g/dL 6.4-8.2 [facility] Work Phone: [phone] Sodium [Moles/Vol] 138 mmol/L 136-145 [facility] Work Phone: [phone] Triglyceride [Mass/Vol] 107 mg/dL <199 [facility] Work Phone: [phone] Comment on above: The drugs N-Acetylcy steine and Metamizole may falsely depress this assay.Serum Triglycerides Reference Interval Normal <150 mg/dL Borderline high 150 - 199 mg/dL High 200 - 499 mg/dL Very High > or = 500 mg/dL WBC (Bld) [#/Vol] 7.9 10*3/uL 4.4-11.0 [facility] Work Phone: [phone] Blood erythrocytes count (nu mber/volume)on 08-08-2021 RBC (Bld) [#/Vol] 4.45 10*6/uL 4.2-5.4 [facility] Work Phone: [phone] Blood hemoglobin measurement (mass/volume)on 08-08-2021 Hemoglobin (Bld) [Mass/Vol] 14.1 g/dL 12.0-15.0 [facility] Work Phone: [phone] Blood platelet mean volumeon 08-08-2021 Platelet mean volume (Bld) [Entitic vol] 11.2 fL 6.2-12.0 [facility] Work Phone: [phone] Determination of erythrocyte mean corpuscular volume (MCV)on 08-08-2021 MCV (RBC) [Entitic vol] 97.5 fL 81-99 [facility] Work Phone: [phone] Hematocrit Auto (Bld) [Volum e fraction]on 03-10-2022 Hematocrit (Bld) [Volume fraction] 43.4 % 37-47 [facility] Work Phone: [phone] Laboratory - Chemistry and C hemistry - challengeon 08-08-2021 ALP [Catalytic activity/Vol] 77 U/L 45-117 [facility] Work Phone: [phone] ALT [Catalytic activity/Vol] 17 U/L 13-56 [facility] Work Phone: [phone] CO2 [Moles/Vol] 31.0 mmol/L 21.0-32.0 [facility] Work Phone: [phone] Globulin (S) [Mass/Vol] 4.1 g/dL 2.2-4.2 [facility] Work Phone: [phone] Urea nitrogen/Creatinine [Mass ratio] 34.6 mg/mg 10-20 [facility] Work Phone: [phone] Laboratory - Hematology and Cell countson 08-08-2021 Erythrocyte distribution width (RBC) [Entitic vol] 51.3 fL 35.1-43.9 [facility] Work Phone: [phone] Erythrocyte distribution width (RBC) [Ratio] 14.3 % 11.6-14.6 [facility] Work Phone: [phone] MCH (RBC) [Entitic mass] 31.7 pg 27.0-32.0 [facility] Work Phone: MCHC Auto (RBC) [Mass/Vol]on 08-08-2021 MCHC (RBC) [Mass/Vol] 32.5 g/dL 32-36 [facility] Work Phone: No Panel Informationon 08-08 Estimated GFR (MDRD) Amer 109 mL/min >60 [facility] Work Phone: [phone] Comment on above: GFR Calc Estimated GFR (MDRD) Non-Af Amer 90 mL/min >60 [facility] Work Phone: [phone] Comment on above: Non- GFR Calc Valproic Acid (Depakene) Level 36 ug/mL 50-100 [facility] Work Phone: Platelets bldon 03-10-2022 Platelets (Bld) [#/Vol] 203 10*3/uL 150-450 [facility] Work Phone: Serum or plasma albumin tammie urement (mass/volume)on 08-08-2021 Albumin [Mass/Vol] 3.1 g/dL 3.2-5.0 [facility] Work Phone: Serum or plasma albumin/glob ulin mass ratioon 08-08-2021 Albumin/Globulin [Mass ratio] 0.8 {ratio} 0.9-2.4 [facility] Work Phone: Serum or plasma calcium tammie urement (mass/volume)on 08-08-2021 Calcium [Mass/Vol] 8.4 mg/dL 8.5-10.1 [facility] Work Phone: Serum or plasma cholesterol in HDL measurement (mass/volume)on 08-08-2021 Cholesterol in HDL [Mass/Vol] 55 mg/dL >40 [facility] Work Phone: Comment on above: The drugs N-Acetylcy steine and Metamizole may falsely depress this assay. Reference Range HDL <40 mg/dL Low HDL Cholesterol HDL >or= 60 mg/dL High HDL Cholesterol Serum or plasma cholesterol in VLDL measurement (mass/volume)on 08-08-2021 Cholesterol in VLDL [Mass/Vol] 21 mg/dL 5-40 [facility] Work Phone: Serum or plasma creatinine m easurement (mass/volume)on 08-08-2021 Creatinine [Mass/Vol] 0.69 mg/dL 0.55-1.02 [facility] Work Phone: Comment on above: The validity of the calculated GFR & GFRAA in patients over 70 years has not been determined. Clinical correlation is essential. Serum or plasma low density lipoprotein (LDL) cholesterol measurement (mass/volume)on 08-08-2021 Cholesterol in LDL [Mass/Vol] 73 mg/dL 0-130 [facility] Work Phone: Serum or plasma urea nitroge n measurement (mass/volume)on 08-08-2021 Urea nitrogen [Mass/Vol] 24 mg/dL 7-18 [facility] Work Phone: Thin prep Papanicolaou smear with manual screeningon 08-08-2021 Thin prep Papanicolaou smear with manual screening 13 U/L 15-37 [facility] Work Phone: Thin prep Papanicolaou smear with manual screening 4 5-15 [facility] Work Phone: Absolute lymphocyte counton 07-23-2021 Lymphocytes Auto (Unsp spec) [#/Vol] 2.91 10*3/uL 0.83-4.51 [facility] Work Phone: Basophil percentageon 2021 Basophils/100 WBC (Bld) 1.1 % 0-1 [facility] Work Phone: Bilirubin [Mass/Vol] 0.30 mg/dL 0.20-1.00 [facility] Work Phone: Comment on above: For patients on eltr ombopag therapy, use of Dimension [place] TBIL is not recommended. Chloride [Moles/Vol] 105 mmol/L 98-107 [facility] Work Phone: Eosinophils/100 WBC (Bld) 2.8 % 0-5 [facility] Work Phone: Glucose [Mass/Vol] 78 mg/dL 74-106 [facility] Work Phone: Neutrophils (Bld) [#/Vol] 4.1 10*3/uL 2.0-7.7 [facility] Work Phone: Neutrophils/100 WBC (Bld) 50.5 % 47-70 [facility] Work Phone: Potassium [Moles/Vol] 4.3 mmol/L 3.5-5.1 [facility] Work Phone: Protein [Mass/Vol] 7.0 g/dL 6.4-8.2 [facility] Work Phone: Sodium [Moles/Vol] 139 mmol/L 136-145 [facility] Work Phone: WBC (Bld) [#/Vol] 8.1 10*3/uL 4.4-11.0 [facility] Work Phone: [phone] Blood erythrocytes count (nu mber/volume)on 07-23-2021 RBC (Bld) [#/Vol] 4.28 10*6/uL 4.2-5.4 [facility]: Blood hemoglobin measurement (mass/volume)on 07-23-2021 Hemoglobin (Bld) [Mass/Vol] 13.5 g/dL 12.0-15.0 [facility] Work Phone: Blood lymphocytes/100 leukoc yteson 07-23-2021 Lymphocytes/100 WBC (Bld) 35.9 % 19-41 [facility] Work Phone: [phone] Blood monocytes/100 leukocyt eson 07-23-2021 Monocytes/100 WBC (Bld) 9.5 % 0-10 [facility] Work Phone: Blood platelet mean volumeon 07-23-2021 Platelet mean volume (Bld) [Entitic vol] 11.2 fL 6.2-12.0 [facility] Work Phone: Determination of erythrocyte mean corpuscular volume (MCV)on 07-23-2021 MCV (RBC) [Entitic vol] 95.6 fL 81-99 [facility] Work Phone: Erythrocyte sedimentation ra wade 07-23-2021 ESR (Bld) [Velocity] 7 mm/h 0-30 [facility]: Hematocrit Auto (Bld) [Volum e fraction]on 07-23-2021 Hematocrit (Bld) [Volume fraction] 40.9 % 37-47 [facility] Work Phone: Laboratory - Chemistry and C hemistry - challengeon 07-23-2021 ALP [Catalytic activity/Vol] 68 U/L 45-117 [facility] Work Phone: ALT [Catalytic activity/Vol] 20 U/L 13-56 [facility] Work Phone: [phone] CO2 [Moles/Vol] 28.0 mmol/L 21.0-32.0 [facility] Work Phone: [phone] Globulin (S) [Mass/Vol] 4.1 g/dL 2.2-4.2 [facility] Work Phone: [phone] Urea nitrogen/Creatinine [Mass ratio] 43.6 mg/mg 10-20 [facility] Work Phone: [phone] Laboratory - Hematology and Cell countson 07-23-2021 Erythrocyte distribution width (RBC) [Entitic vol] 49.9 fL 35.1-43.9 [facility] Work Phone: [phone] Erythrocyte distribution width (RBC) [Ratio] 14.2 % 11.6-14.6 [facility] Work Phone: [phone] Immature granulocytes/100 WBC (Bld) 0.200 % 0.0-0.9 [facility] Work Phone: [phone] Comment on above: IG% - Immature Granu locytes (promyelocytes, myelocytes and metamyelocytes) > 1% indicates that a LEFT SHIFT is Present. MCH (RBC) [Entitic mass] 31.5 pg 27.0-32.0 [facility] Work Phone: [phone] Nucleated RBC/100 WBC (Bld) [Ratio] 0 % 0-5 [facility] Work Phone: [phone] MCHC Auto (RBC) [Mass/Vol]on 07-23-2021 MCHC (RBC) [Mass/Vol] 33.0 g/dL 32-36 [facility] Work Phone: [phone] Panel Informationon 07-23 Estimated GFR (MDRD) Amer 119 mL/min >60 [facility] Work Phone: [phone] Comment on above: GFR Calc Estimated GFR (MDRD) Non-Af Amer 99 mL/min >60 [facility] Work Phone: [phone] Comment on above: Non- GFR Calc Platelets bldon 07-23-2021 Platelets (Bld) [#/Vol] 200 10*3/uL 150-450 [facility] Work Phone: Serum or plasma C reactive p rotein measurement (mass/volume)on 07-23-2021 CRP [Mass/Vol] 3.68 mg/L 0.0-3.0 [facility] Work Phone: Comment on above: C-Reactive Protein ( CRP) provides useful information for thediagnosis, therapy and monitoring of inflammatory processesand associated diseases. For the evaluation of Relative Riskfor Cardiovascular Disease, a High Sensitivity CRP (HSCRP)should be ordered. Serum or plasma albumin tammie urement (mass/volume)on 07-23-2021 Albumin [Mass/Vol] 2.9 g/dL 3.2-5.0 [facility] Work Phone: Serum or plasma albumin/glob ulin mass ratioon 07-23-2021 Albumin/Globulin [Mass ratio] 0.7 {ratio} 0.9-2.4 [facility] Work Phone: Serum or plasma calcium tammie urement (mass/volume)on 07-23-2021 Calcium [Mass/Vol] 8.5 mg/dL 8.5-10.1 [facility] Work Phone: Serum or plasma creatinine m easurement (mass/volume)on 07-23-2021 Creatinine [Mass/Vol] 0.64 mg/dL 0.55-1.02 [facility] Work Phone: Comment on above: The validity of the calculated GFR & GFRAA in patients over 70 years has not been determined. Clinical correlation is essential. Serum or plasma urea nitroge n measurement (mass/volume)on 07-23-2021 Urea nitrogen [Mass/Vol] 28 mg/dL 7-18 [facility] Work Phone: Thin prep Papanicolaou smear with manual screeningon 07-23-2021 Thin prep Papanicolaou smear with manual screening 19 U/L 15-37 [facility] Work Phone: Thin prep Papanicolaou smear with manual screening 6 5-15 [facility] Work Phone: Absolute lymphocyte counton 07-16-2021 Lymphocytes Auto (Unsp spec) [#/Vol] 2.58 10*3/uL 0.83-4.51 [facility] Work Phone: Basophil percentageon 2021 Basophils/100 WBC (Bld) 1.1 % 0-1 [facility] Work Phone: Bilirubin [Mass/Vol] 0.30 mg/dL 0.20-1.00 [facility] Work Phone: Comment on above: For patients on eltr ombopag therapy, use of Dimension [place] TBIL is not recommended. Chloride [Moles/Vol] 103 mmol/L 98-107 [facility] Work Phone: Eosinophils/100 WBC (Bld) 3.0 % 0-5 [facility] Work Phone: Glucose [Mass/Vol] 74 mg/dL 74-106 [facility] Work Phone: Neutrophils (Bld) [#/Vol] 3.9 10*3/uL 2.0-7.7 [facility] Work Phone: Neutrophils/100 WBC (Bld) 51.3 % 47-70 [facility] Work Phone: Potassium [Moles/Vol] 4.5 mmol/L 3.5-5.1 [facility] Work Phone: Comment on above: Slight Hemolysis, Re sult may be falsely increased. Protein [Mass/Vol] 6.8 g/dL 6.4-8.2 [facility] Work Phone: Sodium [Moles/Vol] 134 mmol/L 136-145 [facility] Work Phone: WBC (Bld) [#/Vol] 7.6 10*3/uL 4.4-11.0 [facility] Work Phone: Blood erythrocytes count (nu mber/volume)on 07-16-2021 RBC (Bld) [#/Vol] 4.21 10*6/uL 4.2-5.4 [facility] Work Phone: Blood hemoglobin measurement (mass/volume)on 07-16-2021 Hemoglobin (Bld) [Mass/Vol] 13.2 g/dL 12.0-15.0 [facility] Work Phone: Blood lymphocytes/100 leukoc yteson 07-16-2021 Lymphocytes/100 WBC (Bld) 33.9 % 19-41 [facility] Work Phone: Blood monocytes/100 leukocyt eson 07-16-2021 Monocytes/100 WBC (Bld) 10.4 % 0-10 [facility] Work Phone: Blood platelet mean volumeon 07-16-2021 Platelet mean volume (Bld) [Entitic vol] 11.3 fL 6.2-12.0 [facility] Work Phone: Determination of erythrocyte mean corpuscular volume (MCV)on 07-16-2021 MCV (RBC) [Entitic vol] 97.1 fL 81-99 [facility] Work Phone: Erythrocyte sedimentation ra wade 07-16-2021 ESR (Bld) [Velocity] 9 mm/h 0-30 [facility] Work Phone: Hematocrit Auto (Bld) [Volum e fraction]on 07-16-2021 Hematocrit (Bld) [Volume fraction] 40.9 % 37-47 [facility] Work Phone: Laboratory - Chemistry and C hemistry - challengeon 07-16-2021 ALP [Catalytic activity/Vol] 69 U/L 45-117 [facility] Work Phone: ALT [Catalytic activity/Vol] 24 U/L 13-56 [facility] Work Phone: [phone] CO2 [Moles/Vol] 27.0 mmol/L 21.0-32.0 [facility] Work Phone: Globulin (S) [Mass/Vol] 4.0 g/dL 2.2-4.2 [facility] Work Phone: [phone] Urea nitrogen/Creatinine [Mass ratio] 38.3 mg/mg 10-20 [facility] Work Phone: [phone] Laboratory - Hematology and Cell countson 07-16-2021 Erythrocyte distribution width (RBC) [Entitic vol] 50.8 fL 35.1-43.9 [facility] Work Phone: [phone] Erythrocyte distribution width (RBC) [Ratio] 14.2 % 11.6-14.6 [facility] Work Phone: [phone] Immature granulocytes/100 WBC (Bld) 0.300 % 0.0-0.9 [facility] Work Phone: [phone] Comment on above: IG% - Immature Granu locytes (promyelocytes, myelocytes and metamyelocytes) > 1% indicates that a LEFT SHIFT is Present. MCH (RBC) [Entitic mass] 31.4 pg 27.0-32.0 [facility] Work Phone: [phone] Nucleated RBC/100 WBC (Bld) [Ratio] 0 % 0-5 [facility] Work Phone: [phone] MCHC Auto (RBC) [Mass/Vol]on 07-16-2021 MCHC (RBC) [Mass/Vol] 32.3 g/dL 32-36 [facility] Work Phone: No Panel Informationon 07-16 Estimated GFR (MDRD) Amer 123 mL/min >60 [facility] Work Phone: [phone] Comment on above: GFR Calc Estimated GFR (MDRD) Non-Af Amer 101 mL/min >60 [facility] Work Phone: [phone] Comment on above: Non- GFR Calc Platelets bldon 07-16-2021 Platelets (Bld) [#/Vol] 193 10*3/uL 150-450 [facility] Work Phone: [phone] Serum or plasma C reactive p rotein measurement (mass/volume)on 07-16-2021 CRP [Mass/Vol] 3.15 mg/L 0.0-3.0 [facility] Work Phone: Comment on above: C-Reactive Protein ( CRP) provides useful information for thediagnosis, therapy and monitoring of inflammatory processesand associated diseases. For the evaluation of Relative Riskfor Cardiovascular Disease, a High Sensitivity CRP (HSCRP)should be ordered. Serum or plasma albumin tammie urement (mass/volume)on 07-16-2021 Albumin [Mass/Vol] 2.8 g/dL 3.2-5.0 [facility] Work Phone: [phone] Serum or plasma albumin/glob ulin mass ratioon 07-16-2021 Albumin/Globulin [Mass ratio] 0.7 {ratio} 0.9-2.4 [facility] Work Phone: Serum or plasma calcium tammie urement (mass/volume)on 07-16-2021 Calcium [Mass/Vol] 8.8 mg/dL 8.5-10.1 [facility] Work Phone: Serum or plasma creatinine m easurement (mass/volume)on 07-16-2021 Creatinine [Mass/Vol] 0.63 mg/dL 0.55-1.02 [facility] Work Phone: Comment on above: The validity of the calculated GFR & GFRAA in patients over 70 years has not been determined. Clinical correlation is essential. Serum or plasma urea nitroge n measurement (mass/volume)on 07-16-2021 Urea nitrogen [Mass/Vol] 24 mg/dL 7-18 [facility] Work Phone: [phone] Thin prep Papanicolaou smear with manual screeningon 07-16-2021 Thin prep Papanicolaou smear with manual screening 26 U/L 15-37 [facility] Work Phone: [phone] Comment on above: Slight Hemolysis, Re sult may be falsely increased. Thin prep Papanicolaou smear with manual screening 4 5-15 [facility] Work Phone: [phone] Absolute lymphocyte counton 07-09-2021 Lymphocytes Auto (Unsp spec) [#/Vol] 2.60 10*3/uL 0.83-4.51 [facility] Work Phone: Basophil percentageon 2021 Basophils/100 WBC (Bld) 1.1 % 0-1 [facility] Work Phone: Bilirubin [Mass/Vol] 0.30 mg/dL 0.20-1.00 [facility] Work Phone: Comment on above: For patients on eltr ombopag therapy, use of Dimension [place] TBIL is not recommended. Chloride [Moles/Vol] 103 mmol/L 98-107 [facility] Work Phone: Eosinophils/100 WBC (Bld) 2.7 % 0-5 [facility] Work Phone: Glucose [Mass/Vol] 78 mg/dL 74-106 [facility] Work Phone: Neutrophils (Bld) [#/Vol] 3.7 10*3/uL 2.0-7.7 [facility] Work Phone: Neutrophils/100 WBC (Bld) 49.9 % 47-70 [facility] Work Phone: Potassium [Moles/Vol] 4.3 mmol/L 3.5-5.1 [facility] Work Phone: Protein [Mass/Vol] 6.9 g/dL 6.4-8.2 [facility] Work Phone: Sodium [Moles/Vol] 138 mmol/L 136-145 [facility] Work Phone: WBC (Bld) [#/Vol] 7.4 10*3/uL 4.4-11.0 [facility] Work Phone: Blood erythrocytes count (nu mber/volume)on 07-09-2021 RBC (Bld) [#/Vol] 4.12 10*6/uL 4.2-5.4 [facility] Work Phone: Blood hemoglobin measurement (mass/volume)on 07-09-2021 Hemoglobin (Bld) [Mass/Vol] 13.3 g/dL 12.0-15.0 [facility] Work Phone: Blood lymphocytes/100 leukoc yteson 07-09-2021 Lymphocytes/100 WBC (Bld) 35.0 % 19-41 [facility] Work Phone: Blood monocytes/100 leukocyt eson 07-09-2021 Monocytes/100 WBC (Bld) 10.9 % 0-10 [facility] Work Phone: Blood platelet mean volumeon 07-09-2021 Platelet mean volume (Bld) [Entitic vol] 11.4 fL 6.2-12.0 [facility] Work Phone: Determination of erythrocyte mean corpuscular volume (MCV)on 07-09-2021 MCV (RBC) [Entitic vol] 96.8 fL 81-99 [facility] Work Phone: Erythrocyte sedimentation ra awde 07-09-2021 ESR (Bld) [Velocity] 6 mm/h 0-30 [facility] Work Phone: Hematocrit Auto (Bld) [Volum e fraction]on 07-09-2021 Hematocrit (Bld) [Volume fraction] 39.9 % 37-47 [facility] Work Phone: Laboratory - Chemistry and C hemistry - challengeon 07-09-2021 ALP [Catalytic activity/Vol] 63 U/L 45-117 [facility] Work Phone: ALT [Catalytic activity/Vol] 19 U/L 13-56 [facility] Work Phone: CO2 [Moles/Vol] 27.0 mmol/L 21.0-32.0 [facility] Work Phone: Globulin (S) [Mass/Vol] 4.1 g/dL 2.2-4.2 [facility] Work Phone: Urea nitrogen/Creatinine [Mass ratio] 33.0 mg/mg 10-20 [facility] Work Phone: Laboratory - Hematology and Cell countson 07-09-2021 Erythrocyte distribution width (RBC) [Entitic vol] 51.5 fL 35.1-43.9 [facility] Work Phone: [phone] Erythrocyte distribution width (RBC) [Ratio] 14.3 % 11.6-14.6 [facility] Work Phone: [phone] Immature granulocytes/100 WBC (Bld) 0.400 % 0.0-0.9 [facility] Work Phone: [phone] Comment on above: IG% - Immature Granu locytes (promyelocytes, myelocytes and metamyelocytes) > 1% indicates that a LEFT SHIFT is Present. MCH (RBC) [Entitic mass] 32.3 pg 27.0-32.0 [facility] Work Phone: [phone] Nucleated RBC/100 WBC (Bld) [Ratio] 0 % 0-5 [facility] Work Phone: [phone] MCHC Auto (RBC) [Mass/Vol]on 07-09-2021 MCHC (RBC) [Mass/Vol] 33.3 g/dL 32-36 [facility] Work Phone: No Panel Informationon 07-09 Estimated GFR (MDRD) Amer 103 mL/min >60 [facility] Work Phone: Comment on above: GFR Calc Estimated GFR (MDRD) Non-Af Amer 85 mL/min >60 [facility] Work Phone: [phone] Comment on above: Non- GFR Calc Platelets bldon 07-09-2021 Platelets (Bld) [#/Vol] 215 10*3/uL 150-450 [facility] Work Phone: [phone] Serum or plasma C reactive p rotein measurement (mass/volume)on 07-09-2021 CRP [Mass/Vol] mg/L 0.0-3.0 [facility] Work Phone: [phone] Comment on above: C-Reactive Protein ( CRP) provides useful information for thediagnosis, therapy and monitoring of inflammatory processesand associated diseases. For the evaluation of Relative Riskfor Cardiovascular Disease, a High Sensitivity CRP (HSCRP)should be ordered. Serum or plasma albumin tammie urement (mass/volume)on 07-09-2021 Albumin [Mass/Vol] 2.8 g/dL 3.2-5.0 [facility] Work Phone: [phone] Serum or plasma albumin/glob ulin mass ratioon 07-09-2021 Albumin/Globulin [Mass ratio] 0.7 {ratio} 0.9-2.4 [facility] Work Phone: [phone] Serum or plasma calcium tammie urement (mass/volume)on 07-09-2021 Calcium [Mass/Vol] 8.6 mg/dL 8.5-10.1 [facility] Work Phone: [phone] Serum or plasma creatinine m easurement (mass/volume)on 07-09-2021 Creatinine [Mass/Vol] 0.73 mg/dL 0.55-1.02 [facility] Work Phone: Comment on above: The validity of the calculated GFR & GFRAA in patients over 70 years has not been determined. Clinical correlation is essential. Serum or plasma urea nitroge n measurement (mass/volume)on 07-09-2021 Urea nitrogen [Mass/Vol] 24 mg/dL 7-18 [facility] Work Phone: [phone] Thin prep Papanicolaou smear with manual screeningon 07-09-2021 Thin prep Papanicolaou smear with manual screening 20 U/L 15-37 [facility] Work Phone: [phone] Thin prep Papanicolaou smear with manual screening 8 5-15 [facility] Work Phone: [phone] Absolute lymphocyte counton 07-02-2021 Lymphocytes Auto (Unsp spec) [#/Vol] 2.06 10*3/uL 0.83-4.51 [facility] Work Phone: [phone] Basophil percentageon 2021 Basophils/100 WBC (Bld) 0.7 % 0-1 [facility] Work Phone: [phone] Bilirubin [Mass/Vol] 0.50 mg/dL 0.20-1.00 [facility] Work Phone: [phone] Comment on above: For patients on eltr ombopag therapy, use of Dimension [place] TBIL is not recommended. Chloride [Moles/Vol] 103 mmol/L 98-107 [facility] Work Phone: Eosinophils/100 WBC (Bld) 1.7 % 0-5 [facility] Work [phone] Glucose [Mass/Vol] 83 mg/dL 74-106 [facility] Work Phone: Neutrophils (Bld) [#/Vol] 5.0 10*3/uL 2.0-7.7 [facility] Work Phone: Neutrophils/100 WBC (Bld) 60.8 % 47-70 [facility] Work Phone: Potassium [Moles/Vol] 4.7 mmol/L 3.5-5.1 [facility] Work Phone: Comment on above: Moderate Hemolysis, Result may be falsely increased. Protein [Mass/Vol] 7.0 g/dL 6.4-8.2 [facility] Work Phone: Sodium [Moles/Vol] 135 mmol/L 136-145 [facility] Work Phone: WBC (Bld) [#/Vol] 8.3 10*3/uL 4.4-11.0 [facility] Work Phone: Blood erythrocytes count (nu mber/volume)on 07-02-2021 RBC (Bld) [#/Vol] 4.11 10*6/uL 4.2-5.4 [facility] Work Phone: Blood hemoglobin measurement (mass/volume)on 07-02-2021 Hemoglobin (Bld) [Mass/Vol] 13.2 g/dL 12.0-15.0 [facility] Work Phone: Blood lymphocytes/100 leukoc yteson 07-02-2021 Lymphocytes/100 WBC (Bld) 24.9 % 19-41 [facility] Work Phone: Blood monocytes/100 leukocyt eson 07-02-2021 Monocytes/100 WBC (Bld) 11.4 % 0-10 [facility] Work Phone: Blood platelet mean volumeon 07-02-2021 Platelet mean volume (Bld) [Entitic vol] 11.0 fL 6.2-12.0 [facility] Work Phone: Determination of erythrocyte mean corpuscular volume (MCV)on 07-02-2021 MCV (RBC) [Entitic vol] 98.5 fL 81-99 [facility] Work Phone: Erythrocyte sedimentation ra wade 07-02-2021 ESR (Bld) [Velocity] 7 mm/h 0-30 [facility] Work [facility]: Hematocrit Auto (Bld) [Volum e fraction]on 07-02-2021 Hematocrit (Bld) [Volume fraction] 40.5 % 37-47 [facility] Work Phone: Laboratory - Chemistry and C hemistry - challengeon 07-02-2021 ALP [Catalytic activity/Vol] 58 U/L 45-117 [facility] Work Phone: ALT [Catalytic activity/Vol] 21 U/L 13-56 [facility] Work Phone: CO2 [Moles/Vol] 29.0 mmol/L 21.0-32.0 [facility] Work Phone: Globulin (S) [Mass/Vol] 4.1 g/dL 2.2-4.2 [facility] Work Phone: Urea nitrogen/Creatinine [Mass ratio] 31.6 mg/mg 10-20 [facility] Work Phone: Laboratory - Hematology and Cell countson 07-02-2021 Erythrocyte distribution width (RBC) [Entitic vol] 51.7 fL 35.1-43.9 [facility] Work Phone: Erythrocyte distribution width (RBC) [Ratio] 14.2 % 11.6-14.6 [facility] Work Phone: Immature granulocytes/100 WBC (Bld) 0.500 % 0.0-0.9 [facility] Work Phone: Comment on above: IG% - Immature Granu locytes (promyelocytes, myelocytes and metamyelocytes) > 1% indicates that a LEFT SHIFT is Present. MCH (RBC) [Entitic mass] 32.1 pg 27.0-32.0 [facility] Work Phone: Nucleated RBC/100 WBC (Bld) [Ratio] 0 % 0-5 [facility] Work Phone: [phone] MCHC Auto (RBC) [Mass/Vol]on 07-02-2021 MCHC (RBC) [Mass/Vol] 32.6 g/dL 32-36 [facility] Work Phone: No Panel Informationon 07-02 Estimated GFR (MDRD) Amer 115 mL/min >60 [facility] Work Phone: Comment on above: GFR Calc Estimated GFR (MDRD) Non-Af Amer 95 mL/min >60 [facility] [facility] Work Phone: Comment on above: Non- GFR Calc Platelets bldon 07-02-2021 Platelets (Bld) [#/Vol] 211 10*3/uL 150-450 [facility] Work Phone: Serum or plasma C reactive p rotein measurement (mass/volume)on 07-02-2021 CRP [Mass/Vol] mg/L 0.0-3.0 [facility] Work Phone: Comment on above: C-Reactive Protein ( CRP) provides useful information for thediagnosis, therapy and monitoring of inflammatory processesand associated diseases. For the evaluation of Relative Riskfor Cardiovascular Disease, a High Sensitivity CRP (HSCRP)should be ordered. Serum or plasma albumin tammie urement (mass/volume)on 07-02-2021 Albumin [Mass/Vol] 2.9 g/dL 3.2-5.0 [facility] Work Phone: Serum or plasma albumin/glob ulin mass ratioon 07-02-2021 Albumin/Globulin [Mass ratio] 0.7 {ratio} 0.9-2.4 [facility] Work Phone: Serum or plasma calcium tammie urement (mass/volume)on 07-02-2021 Calcium [Mass/Vol] 8.4 mg/dL 8.5-10.1 [facility] Work Phone: [phone] Serum or plasma creatinine m easurement (mass/volume)on 07-02-2021 Creatinine [Mass/Vol] 0.66 mg/dL 0.55-1.02 [facility] Work Phone: Comment on above: The validity of the calculated GFR & GFRAA in patients over 70 years has not been determined. Clinical correlation is essential. Serum or plasma urea nitroge n measurement (mass/volume)on 07-02-2021 Urea nitrogen [Mass/Vol] 21 mg/dL 7-18 [facility] Work Phone: Thin prep Papanicolaou smear with manual screeningon 07-02-2021 Thin prep Papanicolaou smear with manual screening 26 U/L 15-37 [facility] Work Phone: Comment on above: Moderate Hemolysis, Result may be falsely increased. Thin prep Papanicolaou smear with manual screening 3 5-15 [facility] Work Phone: [phone] Absolute lymphocyte counton 06-25-2021 Lymphocytes Auto (Unsp spec) [#/Vol] 3.59 10*3/uL 0.83-4.51 [facility] Work Phone: Basophil percentageon 2021 Basophils/100 WBC (Bld) 1.2 % 0-1 [facility] Work Phone: [phone] Bilirubin [Mass/Vol] 0.40 mg/dL 0.20-1.00 [facility] Work Phone: Comment on above: For patients on eltr ombopag therapy, use of Dimension [place] TBIL is not recommended. Chloride [Moles/Vol] 105 mmol/L 98-107 [facility] Work Phone: Eosinophils/100 WBC (Bld) 2.0 % 0-5 [facility] Work Phone: Glucose [Mass/Vol] 82 mg/dL 74-106 [facility] Work Phone: Neutrophils (Bld) [#/Vol] 4.0 10*3/uL 2.0-7.7 [facility] Work Phone: Neutrophils/100 WBC (Bld) 47.0 % 47-70 [facility] Work Phone: [phone] Potassium [Moles/Vol] 4.7 mmol/L 3.5-5.1 [facility] Work Phone: Protein [Mass/Vol] 7.4 g/dL 6.4-8.2 [facility] Work Phone: [phone] Sodium [Moles/Vol] 138 mmol/L 136-145 [facility] Work Phone: WBC (Bld) [#/Vol] 8.6 10*3/uL 4.4-11.0 [facility] Work Phone: [phone] Blood erythrocytes count (nu mber/volume)on 06-25-2021 RBC (Bld) [#/Vol] 4.57 10*6/uL 4.2-5.4 [facility] Work Phone: Blood hemoglobin measurement (mass/volume)on 06-25-2021 Hemoglobin (Bld) [Mass/Vol] 13.8 g/dL 12.0-15.0 [facility] Work Phone: [phone] Blood lymphocytes/100 leukoc yteson 06-25-2021 Lymphocytes/100 WBC (Bld) 42.0 % 19-41 [facility] Work Phone: Blood monocytes/100 leukocyt eson 06-25-2021 Monocytes/100 WBC (Bld) 7.6 % 0-10 [facility] Work Phone: Blood platelet mean volumeon 06-25-2021 Platelet mean volume (Bld) [Entitic vol] 11.4 fL 6.2-12.0 [facility] Work Phone: Determination of erythrocyte mean corpuscular volume (MCV)on 06-25-2021 MCV (RBC) [Entitic vol] 96.1 fL 81-99 [facility] Work Phone: [phone] Erythrocyte sedimentation ra wade 06-25-2021 ESR (Bld) [Velocity] 18 mm[facility]h 0-30 [facility]: [phone] Hematocrit Auto (Bld) [Volum e fraction]on 06-25-2021 Hematocrit (Bld) [Volume fraction] 43.9 % 37-47 [facility] Work Phone: [phone] Laboratory - Chemistry and C hemistry - challengeon 06-25-2021 ALP [Catalytic activity/Vol] 72 U/L 45-117 [facility] Work Phone: [phone] ALT [Catalytic activity/Vol] 19 U/L 13-56 [facility] Work Phone: [phone] CO2 [Moles/Vol] 26.0 mmol/L 21.0-32.0 [facility] Work Phone: [phone] Globulin (S) [Mass/Vol] 4.3 g/dL 2.2-4.2 [facility] Work Phone: [phone] Urea nitrogen/Creatinine [Mass ratio] 35.0 mg/mg 10-20 [facility] Work Phone: [phone] Laboratory - Hematology and Cell countson 06-25-2021 Erythrocyte distribution width (RBC) [Entitic vol] 51.1 fL 35.1-43.9 [facility] Work Phone: [phone] Erythrocyte distribution width (RBC) [Ratio] 14.4 % 11.6-14.6 [facility] Work Phone: [phone] Immature granulocytes/100 WBC (Bld) 0.200 % 0.0-0.9 [facility] Work Phone: [phone] Comment on above: IG% - Immature Granu locytes (promyelocytes, myelocytes and metamyelocytes) > 1% indicates that a LEFT SHIFT is Present. MCH (RBC) [Entitic mass] 30.2 pg 27.0-32.0 [facility] Work Phone: [phone] Nucleated RBC/100 WBC (Bld) [Ratio] 0 % 0-5 [facility] Work Phone: [phone] MCHC Auto (RBC) [Mass/Vol]on 06-25-2021 MCHC (RBC) [Mass/Vol] 31.4 g/dL 32-36 [facility] Work Phone: [phone] Panel Informationon 06-25 Estimated GFR (MDRD) Amer 122 mL/min >60 [facility] Work Phone: [phone] Comment on above: GFR Calc Estimated GFR (MDRD) Non-Af Amer 101 mL/min >60 [facility] Work Phone: [phone] Comment on above: Non- GFR Calc Platelets bldon 06-25-2021 Platelets (Bld) [#/Vol] 244 10*3/uL 150-450 [facility] Work Phone: [phone] Serum or plasma C reactive p rotein measurement (mass/volume)on 06-25-2021 CRP [Mass/Vol] 8.29 mg/L 0.0-3.0 [facility] Work Phone: Comment on above: C-Reactive Protein ( CRP) provides useful information for thediagnosis, therapy and monitoring of inflammatory processesand associated diseases. For the evaluation of Relative Riskfor Cardiovascular Disease, a High Sensitivity CRP (HSCRP)should be ordered. Serum or plasma albumin tammie urement (mass/volume)on 06-25-2021 Albumin [Mass/Vol] 3.1 g/dL 3.2-5.0 [facility] Work Phone: [phone] Serum or plasma albumin/glob ulin mass ratioon 06-25-2021 Albumin/Globulin [Mass ratio] 0.7 {ratio} 0.9-2.4 [facility] Work Phone: [phone] Serum or plasma calcium tammie urement (mass/volume)on 06-25-2021 Calcium [Mass/Vol] 9.0 mg/dL 8.5-10.1 [facility] Work Phone: [phone] Serum or plasma creatinine m easurement (mass/volume)on 06-25-2021 Creatinine [Mass/Vol] 0.63 mg/dL 0.55-1.02 [facility] Work Phone: Comment on above: The validity of the calculated GFR & GFRAA in patients over 70 years has not been determined. Clinical correlation is essential. Serum or plasma urea nitroge n measurement (mass/volume)on 06-25-2021 Urea nitrogen [Mass/Vol] 22 mg/dL 7-18 [facility] Work Phone: Thin prep Papanicolaou smear with manual screeningon 06-25-2021 Thin prep Papanicolaou smear with manual screening 17 U/L 15-37 [facility] Work Phone: Thin prep Papanicolaou smear with manual screening 7 5-15 [facility] Work Phone: Absolute lymphocyte counton 06-18-2021 Lymphocytes Auto (Unsp spec) [#/Vol] 2.33 10*3/uL 0.83-4.51 [facility] Work Phone: Basophil percentageon 2021 Basophils/100 WBC (Bld) 0.8 % 0-1 [facility] Work Phone: Bilirubin [Mass/Vol] 0.30 mg/dL 0.20-1.00 [facility] Work Phone: Comment on above: For patients on eltr ombopag therapy, use of Dimension [place] TBIL is not recommended. Chloride [Moles/Vol] 100 mmol/L 98-107 [facility] Work Phone: Eosinophils/100 WBC (Bld) 1.8 % 0-5 [facility] Work Phone: Glucose [Mass/Vol] 81 mg/dL 74-106 [facility] Work Phone: Neutrophils (Bld) [#/Vol] 4.6 10*3/uL 2.0-7.7 [facility] Work Phone: Neutrophils/100 WBC (Bld) 58.4 % 47-70 [facility] Work Phone: Potassium [Moles/Vol] 4.5 mmol/L 3.5-5.1 [facility] Work Phone: Protein [Mass/Vol] 7.4 g/dL 6.4-8.2 [facility] Work Phone: Sodium [Moles/Vol] 135 mmol/L 136-145 [facility] Work Phone: WBC (Bld) [#/Vol] 7.9 10*3/uL 4.4-11.0 [facility] Work Phone: Blood erythrocytes count (nu mber/volume)on 06-18-2021 RBC (Bld) [#/Vol] 4.36 10*6/uL 4.2-5.4 [facility] Work Phone: Blood hemoglobin measurement (mass/volume)on 06-18-2021 Hemoglobin (Bld) [Mass/Vol] 13.6 g/dL 12.0-15.0 [facility] Work Phone: Blood lymphocytes/100 leukoc yteson 06-18-2021 Lymphocytes/100 WBC (Bld) 29.6 % 19-41 [facility] Work Phone: Blood monocytes/100 leukocyt eson 06-18-2021 Monocytes/100 WBC (Bld) 9.0 % 0-10 [facility] Work Phone: [phone] Blood platelet mean volumeon 06-18-2021 Platelet mean volume (Bld) [Entitic vol] 11.1 fL 6.2-12.0 [facility] Work Phone: Determination of erythrocyte mean corpuscular volume (MCV)on 06-18-2021 MCV (RBC) [Entitic vol] 95.9 fL 81-99 [facility] Work Phone: Erythrocyte sedimentation ra wade 06-18-2021 ESR (Bld) [Velocity] 6 mm/h 0-30 [facility]: Hematocrit Auto (Bld) [Volum e fraction]on 06-18-2021 Hematocrit (Bld) [Volume fraction] 41.8 % 37-47 [facility] Work Phone: [phone] Laboratory - Chemistry and C hemistry - challengeon 06-18-2021 ALP [Catalytic activity/Vol] 66 U/L 45-117 [facility] Work Phone: [phone] ALT [Catalytic activity/Vol] 24 U/L 13-56 [facility] Work Phone: [phone] CO2 [Moles/Vol] 28.0 mmol/L 21.0-32.0 [facility] Work Phone: [phone] Globulin (S) [Mass/Vol] 4.3 g/dL 2.2-4.2 [facility] Work Phone: [phone] Urea nitrogen/Creatinine [Mass ratio] 29.9 mg/mg 10-20 [facility] Work Phone: [phone] Laboratory - Hematology and Cell countson 06-18-2021 Erythrocyte distribution width (RBC) [Entitic vol] 51.1 fL 35.1-43.9 [facility] Work Phone: [phone] Erythrocyte distribution width (RBC) [Ratio] 14.4 % 11.6-14.6 [facility] Work Phone: [phone] Immature granulocytes/100 WBC (Bld) 0.400 % 0.0-0.9 [facility] Work Phone: [phone] Comment on above: IG% - Immature Granu locytes (promyelocytes, myelocytes and metamyelocytes) > 1% indicates that a LEFT SHIFT is Present. MCH (RBC) [Entitic mass] 31.2 pg 27.0-32.0 [facility] Work Phone: [phone] Nucleated RBC/100 WBC (Bld) [Ratio] 0 % 0-5 [facility] Work Phone: [phone] MCHC Auto (RBC) [Mass/Vol]on 06-18-2021 MCHC (RBC) [Mass/Vol] 32.5 g/dL 32-36 [facility] Work Phone: No Panel Informationon 06-18 Estimated GFR (MDRD) Amer 114 mL/min >60 [facility] Work Phone: Comment on above: GFR Calc Estimated GFR (MDRD) Non-Af Amer 94 mL/min >60 [facility] Work Phone: Comment on above: Non- GFR Calc Platelets bldon 06-18-2021 Platelets (Bld) [#/Vol] 195 10*3/uL 150-450 [facility] Work Phone: Serum or plasma C reactive p rotein measurement (mass/volume)on 06-18-2021 CRP [Mass/Vol] 4.20 mg/L 0.0-3.0 [facility] Work Phone: Comment on above: C-Reactive Protein ( CRP) provides useful information for thediagnosis, therapy and monitoring of inflammatory processesand associated diseases. For the evaluation of Relative Riskfor Cardiovascular Disease, a High Sensitivity CRP (HSCRP)should be ordered. Serum or plasma albumin tammie urement (mass/volume)on 06-18-2021 Albumin [Mass/Vol] 3.1 g/dL 3.2-5.0 [facility] Work Phone: Serum or plasma albumin/glob ulin mass ratioon 06-18-2021 Albumin/Globulin [Mass ratio] 0.7 {ratio} 0.9-2.4 [facility] Work Phone: Serum or plasma calcium tammie urement (mass/volume)on 06-18-2021 Calcium [Mass/Vol] 8.6 mg/dL 8.5-10.1 [facility] Work Phone: Serum or plasma creatinine m easurement (mass/volume)on 06-18-2021 Creatinine [Mass/Vol] 0.67 mg/dL 0.55-1.02 [facility] Work Phone: Comment on above: The validity of the calculated GFR & GFRAA in patients over 70 years has not been determined. Clinical correlation is essential. Serum or plasma urea nitroge n measurement (mass/volume)on 06-18-2021 Urea nitrogen [Mass/Vol] 20 mg/dL 7-18 [facility] Work Phone: Thin prep Papanicolaou smear with manual screeningon 06-18-2021 Thin prep Papanicolaou smear with manual screening 22 U/L 15-37 [facility] Work Phone: Thin prep Papanicolaou smear with manual screening 7 5-15 [facility] Work Phone: Absolute lymphocyte counton 06-11-2021 Lymphocytes Auto (Unsp spec) [#/Vol] 2.02 10*3/uL 0.83-4.51 [facility] Work Phone: Basophil percentageon 2021 Basophils/100 WBC (Bld) 0.8 % 0-1 [facility] Work Phone: Bilirubin [Mass/Vol] 0.40 mg/dL 0.20-1.00 [facility] Work Phone: Comment on above: For patients on eltr ombopag therapy, use of Dimension [place] TBIL is not recommended. Chloride [Moles/Vol] 101 mmol/L 98-107 [facility] Work Phone: Eosinophils/100 WBC (Bld) 2.0 % 0-5 [facility] Work Phone: Glucose [Mass/Vol] 84 mg/dL 74-106 [facility] Work Phone: Comment on above: Please note revised GLUCOSE reference range effective 2017. Neutrophils (Bld) [#/Vol] 4.5 10*3/uL 2.0-7.7 [facility] Work Phone: Neutrophils/100 WBC (Bld) 58.4 % 47-70 [facility] Work Phone: Potassium [Moles/Vol] 4.4 mmol/L 3.5-5.1 [facility] Work Phone: Protein [Mass/Vol] 6.9 g/dL 6.4-8.2 [facility] Work Phone: Sodium [Moles/Vol] 137 mmol/L 136-145 [facility]: [phone] WBC (Bld) [#/Vol] 7.6 10*3/uL 4.4-11.0 [facility]: [phone] Blood erythrocytes count (nu mber/volume)on 06-11-2021 RBC (Bld) [#/Vol] 4.08 10*6/uL 4.2-5.4 [facility]: Blood hemoglobin measurement (mass/volume)on 06-11-2021 Hemoglobin (Bld) [Mass/Vol] 12.9 g/dL 12.0-15.0 [facility] Work Phone: [phone] Blood lymphocytes/100 leukoc yteson 06-11-2021 Lymphocytes/100 WBC (Bld) 26.4 % 19-41 [facility] Work Phone: [phone] Blood monocytes/100 leukocyt eson 06-11-2021 Monocytes/100 WBC (Bld) 12.0 % 0-10 [facility] Work Phone: [phone] Blood platelet mean volumeon 06-11-2021 Platelet mean volume (Bld) [Entitic vol] 11.1 fL 6.2-12.0 [facility] Work Phone: Determination of erythrocyte mean corpuscular volume (MCV)on 06-11-2021 MCV (RBC) [Entitic vol] 95.6 fL 81-99 [facility] Work Phone: [phone] Erythrocyte sedimentation ra wade 06-11-2021 ESR (Bld) [Velocity] 12 mm/h 0-30 [facility] Work [facility]: [phone] Hematocrit Auto (Bld) [Volum e fraction]on 06-11-2021 Hematocrit (Bld) [Volume fraction] 39.0 % 37-47 [facility] Work Phone: [phone] Laboratory - Chemistry and C hemistry - challengeon 06-11-2021 ALP [Catalytic activity/Vol] 61 U/L 45-117 [facility] Work Phone: [phone] ALT [Catalytic activity/Vol] 23 U/L 13-56 [facility] Work Phone: [phone] CO2 [Moles/Vol] 30.0 mmol/L 21.0-32.0 [facility] Work Phone: [phone] Globulin (S) [Mass/Vol] 4.2 g/dL 2.2-4.2 [facility] Work Phone: [phone] Urea nitrogen/Creatinine [Mass ratio] 28.7 mg/mg 10-20 [facility] Work Phone: [phone] Laboratory - Hematology and Cell countson 06-11-2021 Erythrocyte distribution width (RBC) [Entitic vol] 51.7 fL 35.1-43.9 [facility] Work Phone: [phone] Erythrocyte distribution width (RBC) [Ratio] 14.8 % 11.6-14.6 [facility] Work Phone: [phone] Immature granulocytes/100 WBC (Bld) 0.400 % 0.0-0.9 [facility] Work Phone: [phone] Comment on above: IG% - Immature Granu locytes (promyelocytes, myelocytes and metamyelocytes) > 1% indicates that a LEFT SHIFT is Present. MCH (RBC) [Entitic mass] 31.6 pg 27.0-32.0 [facility] Work Phone: [phone] Nucleated RBC/100 WBC (Bld) [Ratio] 0 % 0-5 [facility] Work Phone: [phone] MCHC Auto (RBC) [Mass/Vol]on 06-11-2021 MCHC (RBC) [Mass/Vol] 33.1 g/dL 32-36 [facility] Work Phone: [phone] Panel Informationon 06-11 Estimated GFR (MDRD) Amer 123 mL/min >60 [facility] Work Phone: [phone] Comment on above: GFR Calc Estimated GFR (MDRD) Non-Af Amer 101 mL/min >60 [facility] Work Phone: Comment on above: Non- GFR Calc Platelets bldon 06-11-2021 Platelets (Bld) [#/Vol] 194 10*3/uL 150-450 [facility] Work Phone: Serum or plasma C reactive p rotein measurement (mass/volume)on 06-11-2021 CRP [Mass/Vol] 3.14 mg/L 0.0-3.0 [facility] Work Phone: Comment on above: C-Reactive Protein ( CRP) provides useful information for thediagnosis, therapy and monitoring of inflammatory processesand associated diseases. For the evaluation of Relative Riskfor Cardiovascular Disease, a High Sensitivity CRP (HSCRP)should be ordered. Serum or plasma albumin tammie urement (mass/volume)on 06-11-2021 Albumin [Mass/Vol] 2.7 g/dL 3.2-5.0 [facility] Work Phone: Serum or plasma albumin/glob ulin mass ratioon 06-11-2021 Albumin/Globulin [Mass ratio] 0.6 {ratio} 0.9-2.4 [facility] Work Phone: Serum or plasma calcium tammie urement (mass/volume)on 06-11-2021 Calcium [Mass/Vol] 8.5 mg/dL 8.5-10.1 [facility] Work Phone: Serum or plasma creatinine m easurement (mass/volume)on 06-11-2021 Creatinine [Mass/Vol] 0.63 mg/dL 0.55-1.02 [facility] Work Phone: Comment on above: The validity of the calculated GFR & GFRAA in patients over 70 years has not been determined. Clinical correlation is essential. Serum or plasma urea nitroge n measurement (mass/volume)on 06-11-2021 Urea nitrogen [Mass/Vol] 18 mg/dL 7-18 [facility] Work Phone: Thin prep Papanicolaou smear with manual screeningon 06-11-2021 Thin prep Papanicolaou smear with manual screening 17 U/L 15-37 [facility] Work Phone: [phone] Thin prep Papanicolaou smear with manual screening 6 5-15 [facility] Work Phone: Absolute lymphocyte counton 06-04-2021 Lymphocytes Auto (Unsp spec) [#/Vol] 3.89 10*3/uL 0.83-4.51 [facility] Work Phone: Basophil percentageon 2021 Basophils/100 WBC (Bld) 0.9 % 0-1 [facility] Work Phone: Bilirubin [Mass/Vol] 0.30 mg/dL 0.20-1.00 [facility] Work Phone: Comment on above: For patients on eltr ombopag therapy, use of Dimension [place] TBIL is not recommended. Chloride [Moles/Vol] 102 mmol/L 98-107 [facility] Work Phone: Eosinophils/100 WBC (Bld) 2.1 % 0-5 [facility] Work Phone: Glucose [Mass/Vol] 97 mg/dL 74-106 [facility] Work Phone: Comment on above: Please note revised GLUCOSE reference range effective 2017. Neutrophils (Bld) [#/Vol] 4.9 10*3/uL 2.0-7.7 [facility] Work Phone: Neutrophils/100 WBC (Bld) 50.4 % 47-70 [facility] Work Phone: Potassium [Moles/Vol] 4.8 mmol/L 3.5-5.1 [facility] Work Phone: Comment on above: Slight Hemolysis, Re sult may be falsely increased. Protein [Mass/Vol] 7.8 g/dL 6.4-8.2 [facility] Work Phone: Sodium [Moles/Vol] 138 mmol/L 136-145 [facility] Work Phone: WBC (Bld) [#/Vol] 9.8 10*3/uL 4.4-11.0 [facility]: Blood erythrocytes count (nu mber/volume)on 06-04-2021 RBC (Bld) [#/Vol] 4.45 10*6/uL 4.2-5.4 [facility] Work Phone: Blood hemoglobin measurement (mass/volume)on 06-04-2021 Hemoglobin (Bld) [Mass/Vol] 13.5 g/dL 12.0-15.0 [facility] Work Phone: Blood lymphocytes/100 leukoc yteson 06-04-2021 Lymphocytes/100 WBC (Bld) 39.6 % 19-41 [facility] Work Phone: Blood monocytes/100 leukocyt eson 06-04-2021 Monocytes/100 WBC (Bld) 6.6 % 0-10 [facility] Work Phone: Blood platelet mean volumeon 06-04-2021 Platelet mean volume (Bld) [Entitic vol] 11.0 fL 6.2-12.0 [facility] Work Phone: Determination of erythrocyte mean corpuscular volume (MCV)on 06-04-2021 MCV (RBC) [Entitic vol] 95.7 fL 81-99 [facility] Work Phone: Erythrocyte sedimentation ra wade 06-04-2021 ESR (Bld) [Velocity] 12 mm/h 0-30 [facility] Work [facility]: Hematocrit Auto (Bld) [Volum e fraction]on 06-04-2021 Hematocrit (Bld) [Volume fraction] 42.6 % 37-47 [facility] Work Phone: [phone] Laboratory - Chemistry and C hemistry - challengeon 06-04-2021 ALP [Catalytic activity/Vol] 71 U/L 45-117 [facility] Work Phone: ALT [Catalytic activity/Vol] 27 U/L 13-56 [facility] Work Phone: [phone] CO2 [Moles/Vol] 27.0 mmol/L 21.0-32.0 [facility] Work Phone: [phone] Globulin (S) [Mass/Vol] 4.7 g/dL 2.2-4.2 [facility] Work Phone: [phone] Urea nitrogen/Creatinine [Mass ratio] 31.2 mg/mg 10-20 [facility] Work Phone: [phone] Laboratory - Hematology and Cell countson 06-04-2021 Erythrocyte distribution width (RBC) [Entitic vol] 52.3 fL 35.1-43.9 [facility] Work Phone: [phone] Erythrocyte distribution width (RBC) [Ratio] 14.7 % 11.6-14.6 [facility] Work Phone: [phone] Immature granulocytes/100 WBC (Bld) 0.400 % 0.0-0.9 [facility] Work Phone: [phone] Comment on above: IG% - Immature Granu locytes (promyelocytes, myelocytes and metamyelocytes) > 1% indicates that a LEFT SHIFT is Present. MCH (RBC) [Entitic mass] 30.3 pg 27.0-32.0 [facility] Work Phone: [phone] Nucleated RBC/100 WBC (Bld) [Ratio] 0 % 0-5 [facility] Work Phone: [phone] MCHC Auto (RBC) [Mass/Vol]on 06-04-2021 MCHC (RBC) [Mass/Vol] 31.7 g/dL 32-36 [facility] Work Phone: [phone] Panel Informationon 06-04 Estimated GFR (MDRD) Amer 107 mL/min >60 [facility] Work Phone: [phone] Comment on above: GFR Calc Estimated GFR (MDRD) Non-Af Amer 88 mL/min >60 [facility] Work Phone: [phone] Comment on above: Non- GFR Calc Platelets bldon 06-04-2021 Platelets (Bld) [#/Vol] 279 10*3/uL 150-450 [facility] Work Phone: Serum or plasma C reactive p rotein measurement (mass/volume)on 06-04-2021 CRP [Mass/Vol] 3.79 mg/L 0.0-3.0 [facility] Work Phone: Comment on above: C-Reactive Protein ( CRP) provides useful information for thediagnosis, therapy and monitoring of inflammatory processesand associated diseases. For the evaluation of Relative Riskfor Cardiovascular Disease, a High Sensitivity CRP (HSCRP)should be ordered. Serum or plasma albumin tammie urement (mass/volume)on 06-04-2021 Albumin [Mass/Vol] 3.1 g/dL 3.2-5.0 [facility] Work Phone: Serum or plasma albumin/glob ulin mass ratioon 06-04-2021 Albumin/Globulin [Mass ratio] 0.7 {ratio} 0.9-2.4 [facility] Work Phone: Serum or plasma calcium tammie urement (mass/volume)on 06-04-2021 Calcium [Mass/Vol] 9.0 mg/dL 8.5-10.1 [facility] Work Phone: Serum or plasma creatinine m easurement (mass/volume)on 06-04-2021 Creatinine [Mass/Vol] 0.71 mg/dL 0.55-1.02 [facility] Work Phone: Comment on above: The validity of the calculated GFR & GFRAA in patients over 70 years has not been determined. Clinical correlation is essential. Serum or plasma urea nitroge n measurement (mass/volume)on 06-04-2021 Urea nitrogen [Mass/Vol] 22 mg/dL 7-18 [facility] Work Phone: Thin prep Papanicolaou smear with manual screeningon 06-04-2021 Thin prep Papanicolaou smear with manual screening 22 U/L 15-37 [facility] Work Phone: Comment on above: Slight Hemolysis, Re sult may be falsely increased. Thin prep Papanicolaou smear with manual screening 9 5-15 [facility] Work Phone: [phone] Absolute lymphocyte counton 05-28-2021 Lymphocytes Auto (Unsp spec) [#/Vol] 2.83 10*3/uL 0.83-4.51 [facility] Work Phone: Basophil percentageon 2020 Bilirubin [Mass/Vol] 0.30 mg/dL 0.20-1.00 [facility] Work Phone: [phone] Comment on above: For patients on eltr ombopag therapy, use of Dimension [place] TBIL is not recommended. Chloride [Moles/Vol] 104 mmol/L 98-107 [facility] Work Phone: Eosinophils/100 WBC (Bld) 2.0 % 0-5 [facility] Work Phone: Glucose [Mass/Vol] 85 mg/dL 74-106 [facility] Work Phone: [phone] Comment on above: Please note revised GLUCOSE reference range effective 2017. Neutrophils (Bld) [#/Vol] 4.9 10*3/uL 2.0-7.7 [facility] Work Phone: Potassium [Moles/Vol] 4.3 mmol/L 3.5-5.1 [facility] Work Phone: [phone] Protein [Mass/Vol] 7.2 g/dL 6.4-8.2 [facility] Work Phone: [phone] Sodium [Moles/Vol] 137 mmol/L 136-145 [facility] Work Phone: WBC (Bld) [#/Vol] 8.9 10*3/uL 4.4-11.0 [facility] Work Phone: Blood erythrocytes count (nu mber/volume)on 05-28-2021 RBC (Bld) [#/Vol] 4.29 10*6/uL 4.2-5.4 [facility] Work Phone: [phone] Blood hemoglobin measurement (mass/volume)on 05-28-2021 Hemoglobin (Bld) [Mass/Vol] 13.3 g/dL 12.0-15.0 [facility] Work Phone: Blood lymphocytes/100 leukoc yteson 05-28-2021 Lymphocytes/100 WBC (Bld) 31.9 % 19-41 [facility] Work Phone: Blood monocytes/100 leukocyt eson 05-28-2021 Monocytes/100 WBC (Bld) 9.5 % 0-10 [facility] Work Phone: Blood platelet mean volumeon 05-28-2021 Platelet mean volume (Bld) [Entitic vol] 10.6 fL 6.2-12.0 [facility] Work Phone: Determination of erythrocyte mean corpuscular volume (MCV)on 05-28-2021 MCV (RBC) [Entitic vol] 93.2 fL 81-99 [facility] Work Phone: Erythrocyte sedimentation ra wade 05-28-2021 ESR (Bld) [Velocity] 15 mm/h 0-30 [facility]: Hematocrit Auto (Bld) [Volum e fraction]on 05-28-2021 Hematocrit (Bld) [Volume fraction] 40.0 % 37-47 [facility] Work Phone: Laboratory - Chemistry and C hemistry - challengeon 05-28-2021 ALP [Catalytic activity/Vol] 75 U/L 45-117 [facility] Work Phone: ALT [Catalytic activity/Vol] 24 U/L 13-56 [facility] Work Phone: CO2 [Moles/Vol] 26.0 mmol/L 21.0-32.0 [facility] Work Phone: Globulin (S) [Mass/Vol] 4.4 g/dL 2.2-4.2 [facility] Work Phone: Urea nitrogen/Creatinine [Mass ratio] 36.5 mg/mg 10-20 [facility] Work Phone: Laboratory - Hematology and Cell countson 05-28-2021 Basophils/100 WBC (Unsp spec) 0.9 % 0-1 [facility] Work Phone: [phone] Erythrocyte distribution width (RBC) [Entitic vol] 51.4 fL 35.1-43.9 [facility] Work Phone: [phone] Erythrocyte distribution width (RBC) [Ratio] 14.8 % 11.6-14.6 [facility] Work Phone: [phone] Immature granulocytes/100 WBC (Bld) 0.300 % 0.0-0.9 [facility] Work Phone: [phone] Comment on above: IG% - Immature Granu locytes (promyelocytes, myelocytes and metamyelocytes) > 1% indicates that a LEFT SHIFT is Present. MCH (RBC) [Entitic mass] 31.0 pg 27.0-32.0 [facility] Work Phone: [phone] Neutrophils/100 WBC (Bld) 55.4 % 47-70 [facility] Work Phone: [phone] Nucleated RBC/100 WBC (Bld) [Ratio] 0 % 0-5 [facility] Work Phone: [phone] MCHC Auto (RBC) [Mass/Vol]on 05-28-2021 MCHC (RBC) [Mass/Vol] 33.3 g/dL 32-36 [facility] Work Phone: No Panel Informationon 05-28 Estimated GFR (MDRD) Amer 116 mL/min >60 [facility] Work Phone: [phone] Comment on above: GFR Calc Estimated GFR (MDRD) Non-Af Amer 96 mL/min >60 [facility] Work Phone: [phone] Comment on above: Non- GFR Calc Platelets bldon 05-28-2021 Platelets (Bld) [#/Vol] 221 10*3/uL 150-450 [facility] Work Phone: [phone] Serum or plasma C reactive p rotein measurement (mass/volume)on 05-28-2021 CRP [Mass/Vol] 4.87 mg/L 0.0-3.0 [facility] Work Phone: [phone] Comment on above: C-Reactive Protein ( CRP) provides useful information for thediagnosis, therapy and monitoring of inflammatory processesand associated diseases. For the evaluation of Relative Riskfor Cardiovascular Disease, a High Sensitivity CRP (HSCRP)should be ordered. Serum or plasma albumin tammie urement (mass/volume)on 05-28-2021 Albumin [Mass/Vol] 2.8 g/dL 3.2-5.0 [facility] Work Phone: [phone] Serum or plasma albumin/glob ulin mass ratioon 05-28-2021 Albumin/Globulin [Mass ratio] 0.6 {ratio} 0.9-2.4 [facility] Work Phone: Serum or plasma calcium tammie urement (mass/volume)on 05-28-2021 Calcium [Mass/Vol] 8.9 mg/dL 8.5-10.1 [facility] Work Phone: [phone] Serum or plasma creatinine m easurement (mass/volume)on 05-28-2021 Creatinine [Mass/Vol] 0.66 mg/dL 0.55-1.02 [facility] Work Phone: Comment on above: The validity of the calculated GFR & GFRAA in patients over 70 years has not been determined. Clinical correlation is essential. Serum or plasma urea nitroge n measurement (mass/volume)on 05-28-2021 Urea nitrogen [Mass/Vol] 24 mg/dL 7-18 [facility] Work Phone: Thin prep Papanicolaou smear with manual screeningon 05-28-2021 Thin prep Papanicolaou smear with manual screening 22 U/L 15-37 [facility] Work Phone: Thin prep Papanicolaou smear with manual screening 7 5-15 [facility] Work Phone: Keshia 02-28-2021 [facility] Telephone (HLPRAD) CHARLIE NGUYEN ([id number]) 1955 F Date Time Provider Department 02/28/21 KELVIN ESPINO During your visit today, we recorded the following information about you: Kelvin Espino MD 02/28/2021 1:54 PM Addendum Call from [facility] (Yoly from [facility]). Pt has developed a faint rash on [...] Fully Assessed Reason for Visit: Patient Question [0497] Prescriptions as of 02/28/2021 - oxyCODONE-acetaminoph en [...] 0 (more content not included)... Normal [facility] CTA CHEST W WO CONTRASTOrder ed By: Nehal Madden on 01-15-2021 Patient Name: CHARLIE NGUYEN Computed Tomography ACCESSION EXAM DATE/TIME PROCEDURE ORDERING PROVIDER [id number] 01/15/2021 14:48 EDT CTA Chest w/ + w/o [id number] Araseli SANCHEZ CPT code 25196 Q9967 Reason For Exam (CTA Chest w/ [...] were concurrently generated by me on the [employer] workstation to better visualize gross vascular anatomy. [...] Phone: Rod[facility], [facility] Incoming Radiology Results From [facility] - 01/15/2021 3:29 PM EDT Patient Name: CHARLIE NGUYEN Computed Tomography ACCESSION EXAM DATE/TIME PROCEDURE ORDERING PROVIDER [id number] 01/15/2021 14:48 EDT CTA Chest w/ + w/o [id number] -CHANO, Contrast NEHAL CPT code 76729 Q9967 Reason For Exam (CTA Chest w/ [...] were concurrently generated by me on the [employer] workstation to better visualize gross vascular anatomy. [...] and Time: 01/15/2021 3:29 [facility] Work Phone: [phone] [facility] Work Phone: [phone] Comprehensive Metabolic Pane l w/ Reflex to MGOrdered By: Nehal Madden on 01-15-2021 EGFR IF NonAfrican Iraqi >90.0 >60 mL/min [facility] Work Phone: [phone] Comment on above: KDIGO guidelines pro vide [...] 23.0 - 27.0 mmol/L [facility] Work Phone: [phone] Albumin [Mass/Vol] 3.7 g/dL 3.5 - 5.0 g/dL [facility] Work Phone: [phone] ALP (Bld) [Catalytic activity/Vol] 100 U/L 38 - 126 U/L [facility] Work Phone: ALT [Catalytic activity/Vol] 11 U/L 0 - 34 U/L [facility] Work Phone: [phone] Comment on above: The ALT test is perf ormed by an updated assay method. Please note that the reference intervals have been changed and are now sex specific. Anion gap [Moles/Vol] 5 mmol/L 3 - 13 mmol/L [facility] Work Phone: [phone] AST [Catalytic activity/Vol] 28 U/L 15 - 46 U/L [facility] Work Phone: [phone] Bilirubin [Mass/Vol] 0.4 mg/dL 0.2 - 1 .3 mg/dL [facility] Work Phone: [phone] Calcium [Mass/Vol] 10.2 mg/dL 8.4 - 10. 4 mg/dL [facility] Work Phone: [phone] Chloride [Moles/Vol] 104 mmol/L 98 - 10 7 mmol/L [facility] Work Phone: [phone] CO2 [Moles/Vol] 29 mmol/L 22 - 30 mmol/L [facility] Work Phone: [phone] Creatinine [Mass/Vol] 0.62 mg/dL 0.52 - 1.25 mg/dL [facility] Work Phone: [phone] Free PSA/Total PSA [Mass fraction] 7.4 g/dL 6.3 - 8.2 g/dL [facility] Work Phone: GFR/1.73 sq M.predicted among blacks MDRD (S/P/Bld) [Vol rate/Area] mL/min/{1.73_m2} >60 mL/min [facility] Work Phone: [phone] Glucose [Mass/Vol] 103 mg/dL High 70 - 100 mg/dL [facility] Work Phone: [phone] Lipase [Catalytic activity/Vol] 86 U/L 23 - 300 U/L [facility] Work Phone: [phone] Potassium [Moles/Vol] 4.2 mmol/L 3.5 - 5.1 mmol/L [facility] Work Phone: [phone] Sodium [Moles/Vol] 139 mmol/L 135 - 145 mmol/L [facility] Work Phone: [phone] Urea nitrogen (BldV) [Mass/Vol] 18 mg/dL 7 - 20 mg/dL [facility] Work Phone: Lactate [Moles/Vol] 1.1 mmol/L 0.7 - 2. 0 mmol/L [facility] Work Phone: Hemoglobin.gastrointesti nal spec 1 Ql (Stl) 11.8 g/dL 11.7 - 16.0 g/dL [facility] Work Phone: Laboratory - Hematology and Cell countsOrdered By: Nehal Madden on 01-15-2021 Basophils/100 WBC (Bld) 0.2 % 0.0 - 2.0 % [employer] Work Phone: Eosinophils (Bld) [#/Vol] 0.6 10*3/uL High 0.0 - 0.5 10*3/uL [employer] Work Phone: Eosinophils/100 WBC (Bld) 4.0 % 1.0 - 6.0 % [employer] Work Phone: Granulocytes/100 WBC (Bld) 84.8 % High 40.0 - 80.0 % [employer] Work Phone: Hematocrit (Bld) [Volume fraction] 35.0 % 35.0 - 47.0 % [employer] Work Phone: Lymphocytes (Bld) [#/Vol] 0.6 10*3/uL Low 1.0 - 4.3 10*3/uL [facility] Work Phone: Lymphocytes/100 WBC (Bld) 4.6 % Low 20.0 - 40.0 % [employer] Work Phone: MCH (RBC) [Entitic mass] 32.3 pg 26. 0 - 34.0 pg [facility] Work Phone: MCHC (RBC) [Mass/Vol] 33.9 % 32.0 - 36.0 % [facility] Work Phone: MCV (RBC) [Entitic vol] 95.3 fL 79.0 - 98.0 fL [facility] Work [phone] Monocytes (Bld) [#/Vol] 0.9 10*3/uL High 0.0 - 0.8 10*3/uL [employer] Work Phone: Monocytes/100 WBC (Bld) 6.4 % 2.0 - 10.0 % [employer] Work Phone: 1 Platelet distribution width (Bld) [Ratio] 15.0 % High 11.5 - 14.5 % [employer] Work Phone: Platelet mean volume (Bld) [Entitic vol] 9.3 fL 7.4 - 10.4 fL [employer] Work Phone: Platelets (Bld) [#/Vol] 255 10*3/uL 140 - 440 10*3/uL [employer] Work Phone: RBC (Bld) [#/Vol] 3.67 10*6/uL Low 3.80 - 5.2 0 10*6/uL [employer] Work Phone: WBC (Bld) [#/Vol] 14.0 10*3/uL High 3.6 - 10.7 10*3/uL [employer] Work Phone: No Panel InformationOrdered By: Nehal Madden on 01-15-2021 Procalcitonin 1.67 ng/mL High 0.00 - 0.09 ng/mL [employer] Work Phone: Interpretation and review of laboratory results Abnormal [employer] Work Phone: Test Performed by [employer], [address] [place] [address] Str. [place], [place] [address] [employer] Work Phone: [employer] Work Phone: Test Performed by [employer], [address] [place] [address] Str. [place], [place] [address] [employer] Work Phone: [employer] Work Phone: Absolute Baso # 0.0 10*3/uL 0.0 - 0.2 10*3/uL [facility] Work Phone: Absolute Neut # 11.8 10*3/uL High 1.8 - 7.0 10*3/uL [facility] Work Phone: 1 POCT VenousOrdered By: Sera Madden on 01-15-2021 Base Excess, Maikel 3.4 mmol/L High -3.0 - 3.0 mmol/L [facility] Work Phone: [phone] FIO2 Venous 6 [facility] Work Phone: Comment on above: Performed by CLIA ID : [id number] [facility], [place] Interpretation and review of laboratory results Abnormal [facility] Work Phone: 1 pCO2, Maikel 52.9 mm[Hg] 40.0 - 55.0 mm[Hg] [facility] Work Phone: pH, Maikel 7.361 [facility] Work Phone: pO2, Maikel 62.4 mm[Hg] High 30.0 - 50.0 mm[Hg] [facility] Work Phone: TC02 (Calc), Maikel 31.5 mmol/L High 24.0 - 28.0 mmol/L [facility] Work Phone: 1 Test Performed by [employer], [address] [place] [address] [facility] Work Phone: [facility] Work Phone: ProcalcitoninOrdered By: Linda Madden on 01-15-2021 Interpretation See Below [facility] Work Phone: Comment on above: PCT <0.50 = Low risk of severe sepsis and/or septic shock. PCT >2.00 = High risk of severe sepsis and/or septic shock. Interpretation and review of laboratory results Abnormal [facility] Work Phone: 1 Test Performed by [employer], [address] [place] [address] [facility] Work Phone: [facility] Work Phone: Respiratory Panel, Molecular , with COVID-19 (Restricted: peds pts or suitable admitted adults)Ordered By: Nehal Madden on 01-15-2021 Respiratory Panel Molecular, with COVID NEGATIVE: No targets were detected by the [employer] Upper Respiratory Pathogens PCR Panel. _ Expected Result: Not Detected The [employer] Upper Respiratory Pathogens PCR Panel can detect [...] management decisions. This assay was developed by [employer] and distributed under an Emergency Use Authorization (EUA) granted by the FDA for the qualitative detection of SARS-CoV-2 nucleic acid. Provider and patient fact sheets can be found at https://www.fda.gov/m edia/811043/download and https://www.fda.gov/m edia/117096/download. [employer] Work Phone: Test Performed by [facility] [address] [address] [employer] Work Phone: [employer] Work Phone: Vital signsOrdered By: Sera Madden on 01-15-2021 Oxygen saturation in Blood 90.1 % High 60.0 - 80.0 % [employer] Work Phone: XR CHEST PORTABLEOrdered By: Nehal Madden on 01-15-2021 Patient Name: CHARLIE NGUYEN Diagnostic Radiology ACCESSION EXAM DATE/TIME PROCEDURE ORDERING PROVIDER [id number] 01/15/2021 12:53 EDT CR Chest Portable [id number] NEHAL SANCHEZ CPT code 53876 Reason For Exam (CR Chest Portable) sepsis [...] Phone: [facility], [facility] In[facility] Results From [facility] - 01/15/2021 1:01 PM EDT Patient Name: CHARLIE NGUYEN Diagnostic Radiology ACCESSION EXAM DATE/TIME PROCEDURE ORDERING PROVIDER [id number] 01/15/2021 12:53 EDT CR Chest Portable [id number] -NEHAL MADDEN CPT code 81666 Reason For Exam (CR Chest Portable) sepsis [...] growth of anaerobes at 5 days. Normal [facility] Comment on above: Performed By: #### C Anitra CORONA/PADILLA ####[facility] [employer] [id number] . [place], [place] CULTURE BLOODon 01-11-2021 Microscopic examination of blood, culture CULTURE BLOOD --> Status: F No growth at 5 days. Normal [facility] Comment on above: Performed By: #### C /BLD ####[facility] [employer] [id number] [place], [place] CULTURE BLOOD (Two)on 2020 Microscopic examination of blood, culture CULTURE BLOOD (Two) --> Status: F No growth at 5 days. Normal [facility] Comment on above: Performed By: #### C /BLT ####[facility] [employer] [id number] [place], [place] C-Reactive Proteinon 021 C-Reactive Protein 5.1 mg/dL High 0.0-0.9 [facility] CASE MANAGEMon 01-08-2021 CASE MANAGEM HNO ID: [id number] Author: Trish Gambino RN Service: Case Management Author Type: Registered Nurse Type: Care Mgt Progress Note Filed: 01/08/2021 12:32 PM Note Text: CARE MANAGEMENT DISCHARGE NOTE SERVICE DATE: 01/08/2021 SERVICE TIME: 1230 LOS: 2 days Admission Date: 01/06/2021 DISCHARGE ARRANGEMENT (list agency and phone number) Discharge Arrangement: Return to intermediate CAREGIVER ASSESSMENT: Caregiver is ready, willing and able to meet the patient's needs as recommended by the inter-professional team:: No Does the patient have an acute stroke diagnosis, or has the patient had a stroke during this admission?: No Patient's transition needs and plan for meeting these needs: pt to dc to [facility] HANDOFF COMMUNICATION: Handoff to: Primary Care Physician Primary Care Physician Name/Phone: Dr. Oates TRANSPORTATION ARRANGEMENTS: Transportation Arrangements: Ambulance/[facility] Transportation Agency and Phone #:: [facility] [phone] Date of Trip: 01/08/21 Time of Trip: 163 Type of Service: BLS Non-emergency Is Patient Medicaid Pending?: No Discussion of financial coverage occurred with: Patient Yard Operator Location: [place] Destination: [facility] Financial Care Management Responsibility: None ADDITIONAL CONTACT RESOURCES: none Discharge Information Row Name Admission (Current) from 01/06/2021 in [facility] Nursing [facility] Agency [facility] Caregiver is ready, willing and able to meet the patient's needs as recommended by the inter-professional team:: No Does the patient have an acute stroke diagnosis, or has the patient had a stroke during this admission?: No Needs Prior to Discharge: Ready for Discharge Transportation Arrangements: Ambulance/[facility] [employer] Agency and Phone #:: [facility] [phone] Date of Trip: 01/08/21 Time of Trip: 163 Type of Service: BLS Non-emergency Is Patient Medicaid Pending?: No Discussion of financial coverage occurred with: Patient Yard Operator Location: [place] Destination: [facility] Financial Care Management Responsibility: None Patient is medically cleared for discharge today to return to [facility]. BLS transport arranged through [facility] for 1630. Bedside nurse aware, DC packet left at nurse's station. Patient aware of dc plans and is agreeable. SIGNATURE: Trish Gambino RN PATIENT NAME: Charlie Nguyen DATE: January 08, 2021 TIME: 12:31 PM PAGER/CONTACT #: [phone] Normal [facility] CBCon 01-08-2021 Absolute nRBC <0.01 Normal <0.01 [facility] Erythrocyte distribution width (RBC) [Ratio] 15.0 % Normal 11.5-15.0 [facility] Hematocrit (Bld) [Volume fraction] 33.9 % Low 36.0-46.0 [facility] Hemoglobin (Bld) [Mass/Vol] 10.6 g/dL Low 11.5-15.5 [facility] MCH 30.7 pG Normal 26.0-34.0 [facility] MCHC (RBC) [Mass/Vol] 31.3 g/dL Normal 30.5-36.0 [facility] MCV (RBC) [Entitic vol] 98.3 fL Normal 80.0-100.0 H [facility] Platelet mean volume (Bld) [Entitic vol] 10.9 fL Normal 9.0-12.7 [facility] Platelets (Bld) [#/Vol] 147 10*3/uL Low 150-400 [facility] RBC (Bld) [#/Vol] 3.45 10*6/uL Low 3.90-5.20 [facility] WBC (Bld) [#/Vol] 5.81 10*3/uL Normal 3.70-11.00 [facility] CNDSon 01-08-2021 [facility] HNO ID: [id number] Author: Jasen Ewing DO Service: Orthopaedic Surgery [...] stay. She was stable for discharge to [facility]. Complete and comprehensive discharge instructions were [...] Patient Condition @ Discharge: Stable Discharge Disposition: [facility] PHYSICAL EXAM (CHOOSE FIRST BLANK IF [...] every Thursday faxed to Sanjana Tarango at [phone] vancomycin (VANCOCIN) 1.25 g Inject 1.25 g intravenously q 24 HR. Qty: 9000 mL Refills: 0 Comments: Needs CBC w/ diff, CMP, vancomycin trough, ESR, CRP every Thursday faxed to Sanjana Tarango at [phone] pregabalin (LYRICA) 100 mg Take 100 mg [...] mouth twice daily. (more content not included)... [facility] CONSULTon 01-08-2021 CONSULT HNO ID: [id number] Author: Milton Fernandez MD Service: General Internal [...] scheduled. SW for dc planning-plan dc to [facility] Await pending labs Thank you for allowing [...] Discussed with Dr Fernandez SIGNATURE: Jan Fernandez APRN.TUNNEL HEADING SUPERVISOR DATE: January 08, 2021 TIME: 6:11 AM I have reviewed the above note obtained and documented by the TELEVISION STATION MANAGER/PA. I have discussed the case and management of the patient's care. The following comments revise or confirm relevant bey components of the note. Milton Fernandez MD 10:16 PM [facility] NURSING PROGon 01-08-2021 NURSING PROG HNO ID: [id number] Author: Turner Patten RN Service: Nursing Author Type: Registered Nurse Type: Nursing Progress Note Filed: 01/08/2021 3:01 PM Note Text: Nursing Progress Note Patient Name: Charlie Nguyen Patient [facility] Daily Note:Assessment as charted. Patient denies any chest pain or shortness of breath. Goal for the day is to increase mobility and control pain. Bed in low position, bed alarm on, call light in reach. Will continue to monitor. 1459- [facility] This note was completed by: Turner Patten [facility] NURSING PROG HNO ID: [id number] Author: Mora Thayer RN Service: Nursing Author Type: Registered Nurse Type: Nursing Progress Note Filed: 01/08/2021 6:58 AM Note Text: Nursing Progress Note Patient Name: Charlie Nguyen Patient [facility]: [facility] Daily Note:0428 Single lumen PICC with total occlusion. Cath eric injection started. 0450 Cath eric completed. Line clamped and labeled, Do Not Flush, cathflo in place. Will return in 2 hours to attempt to aspirate 0650 Attempted to aspirate from PICC without success. Niru Fernandez CNP here, states will order second dose of cathflo This note was completed by: Mora Thayer [facility] Renal Function Panelon 01-08 Albumin [Mass/Vol] 3.1 g/dL Low 3.9-4.9 [facility] Anion gap [Moles/Vol] 8 mmol/L Low 9-18 [facility] Calcium [Mass/Vol] 8.1 mg/dL Low 8.5-10.2 [facility] Chloride [Moles/Vol] 104 mmol/L Normal 97-105 [facility] CO2 [Moles/Vol] 25 mmol/L Normal 22-33 [facility] Creatinine [Mass/Vol] 0.68 mg/dL Normal 0.58-0.96 [facility] eGFR- Amer. >60 Normal [facility] eGFR-All Other Races >60 Normal [facility] Comment on above: Result Comment: eGFR [...] GFR. Glucose [Mass/Vol] 109 mg/dL High 74-99 [facility] Phosphate [Mass/Vol] 2.6 mg/dL Low 2.7-4.8 [facility] Potassium [Moles/Vol] 3.8 mmol/L Normal 3.7-5.1 [facility] Sodium [Moles/Vol] 137 mmol/L Normal 136-144 [facility] Urea nitrogen [Mass/Vol] 14 mg/dL Normal 7-21 [facility] THERAPY NTon 01-08-2021 THERAPY NT HNO ID: [id number] Author: Kris Lamb OT/L Service: Occupational Therapy Author Type: Occupational Therapist Type: Therapy (PT/OT/Speech/Resp) Filed: 01/08/2021 1:13 PM Note Text: Occupational Therapy Evaluation SERVICE DATE: 01/08/2021 SERVICE TIME: 1045 to 1110 ROOM: [facility]-1 Recommended Discharge Disposition: ECF Recommended Discharge Disposition [...] With: Facility Care ([facility]) Assistance Available: 24 Hour Entry To Home: [...] daily living (ADL);Reduced mobility-other Interventions Provided: Evaluation;Self [facility] Living Management (13075) $ Evaluation-Low (71672) Billed Units: 1 unit [facility] (76519) Treatment Minutes: 10 $ [facility] (44681) Billed Units: 1 unit Training AND education provided in: Benefits of in-hospital mobility, Bed mobility, Discharge planning, Fu (more content not included)... [facility] THERAPY NT HNO ID: [id number] Author: Janis Palafox PT Service: Physical Therapy Author Type: Physical Therapist Type: Therapy (PT/OT/Speech/Resp) Filed: 01/08/2021 1:10 PM Note Text: Physical Therapy Evaluation SERVICE DATE: 01/08/2021 SERVICE TIME: 1121 to 1205 ROOM: [place] [address] Recommended Discharge Disposition: Subacute/SNF Recommended Discharge Disposition Comments: pt opperating at new baseline with roasterman hopes of working towards improved mobility out [...] Management;Meals Prior Functional Level Comments: reporting from [facility]; reporting pivot transfers only to WC, bed, [...] Skilled Need Interventions Provided: Evaluation;Therapeuti c Activity (36956) $ Evaluation-Low (47988) Billed Units: 1 unit Therapeutic Activity (49497) Treatment Minutes: 25 $ Therapeutic Activity (11081) Billed Units: 2 units Training AND education [...] 08, 2021 TIME: 1:10 PM Normal [facility] Vancomycinon 01-08-2021 Vancomycin 15.9 ug/mL Normal 10.0-20.0 [facility] Comment on above: Result Comment: Refe rence ranges and high/low indicator flags are provided as general guidelines only. The treating physician must determine appropriate target levels/dosing based on the specific clinical situation. CONSULT PROGon 01-07-2021 CONSULT PROG HNO ID: [id number] Author: Kelvin Espino MD Service: Infectious Disease [...] right knee. Kelvin Espino MD [facility] [phone] Normal [facility] Coronavirus 2019on 1 SARS-CoV-2 (COVID-19) RNA TANVIR+probe Ql (Unsp spec) UPPER RESPIRATORY TRACT SWAB Normal [facility] Comment on above: Performed By: #### C OVID ####[facility], [place] [phone] SARS-CoV-2 (COVID-19) RNA TANVIR+probe Ql (Unsp spec) Negative for COVID19 (SARS CoV2) by RT-PCR or equivalent method. Normal Negative for COVID19 (SARS CoV2) by RT-PCR or equivalent method. [facility] Comment on above: Result Comment: This test was developed and its performance characteristics determined by [facility] [place]. This test has been authorized by FDA under an Emergency Use Authorization (EUA). This test has been validated in accordance with the FDA's Guidance Document "Policy for Diagnostics Testing in Laboratories Certified to Perform High Complexity Testing under CLIA prior to Emergency use Authorization for Coronavirus Disease 2019 during the Public Health Emergency" issued on July 30, 2019. Test performed by [facility], [facility] [place], [address], [place] [address]. Performed By: #### C OVID ####[facility], [place] [phone] NURSING PROGon 01-07-2021 NURSING PROG HNO ID: [id number] Author: Bigg St RN Service: Nursing Author Type: Registered Nurse Type: Nursing Progress Note Filed: 01/08/2021 8:43 AM Note Text: Nursing Progress Note Patient Name: Charlie Nguyen Patient Location: [place] [address] [address] Daily Note: 1900 Assumed care of patient. [...] This note was completed by: Bigg [address] [facility] NURSING PROG HNO ID: [id number] Author: Mariela Campa RN Service: ? Author Type: Registered Nurse Type: Nursing Progress Note Filed: 01/07/2021 9:42 AM Note Text: 01/07/2021 0600 Pt has really been sleeping all night. She can barely open her eyes but then she'll C/O the IV pump alarming. [facility] NURSING PROG HNO ID: [id number] Author: Turner Patten RN Service: Nursing Author Type: Registered Nurse Type: Nursing Progress Note Filed: 01/07/2021 11:59 AM Note Text: Nursing Progress Note Patient Name: Charlie Nguyen Patient Location: [facility]-464-1 Daily Note:Assessment as charted. Patient denies any chest pain or shortness of breath. Patient is lethargic. Goal for the day is to increase mobility and control pain. Bed in low position, bed alarm on, call light in reach. Will continue to monitor. This note was completed by: Turner Patten [facility] NURSING PROG HNO ID: [id number] Author: Mariela Campa RN Service: ? Author Type: Registered Nurse Type: Nursing Progress Note Filed: 01/07/2021 3:31 AM Note Text: 01/06/20211999 Assumed care of pt. She is oddly aggravated when you go into her room , julieta if it is frequently. 01/07/2021 0000 Assessment as charted. Sleeping soundly. [facility] ALLIED HEALTHon 01-06-2021 ALLIED HEALTH HNO ID: [id number] Author: RT Esther(Farideh) Service: Radiology Author Type: Overlock Sleeve Setter Type: Allied Health Filed: 01/06/2021 7:28 PM [...] RT Esther(R) January 06, 2021 7:28 PM [facility] ALLIED HEALTH HNO ID: [id number] Author: RT Lakisha(R) Service: Radiology Author Type: Overlock Sleeve Setter Type: Allied Health Filed: 01/06/2021 10:26 AM [...] RT Lakisha(R) January 06, 2021 10:26 AM [facility] Blood Cultureon 01-06-2021 Bacteria identified Cx Nom (Bld) Sp. Request/Comment: - The blood culture bottles are underfilled. Adding volume lower or higher than the 8 to 10 mL per bottle, which is the manufacturers recommended volume, may adversely affect the recovery and/or detection of organisms. 3.0 CC Culture Result - No growth 5 days [facility] Comment on above: Performed By: #### B LCUL ####[facility], [place] [phone] Bacteria identified Cx Nom (Bld) Sp. Request/Comment: - The blood culture bottles are underfilled. Adding volume lower or higher than the 8 to 10 mL per bottle, which is the manufacturers recommended volume, may adversely affect the recovery and/or detection of organisms. 0.1 CC Culture Result - No growth 5 days [facility] Comment on above: Performed By: #### B LCUL ####[facility] [address] [place], [place] [phone] Body Fluid Cell Count with D ifferentialOrdered By: Nica Nolasco on 01-06-2021 Fluid Type SYNOVIAL [facility] Work Phone: [phone] Cell, Fluid 945 {cells}/uL [facility] Work Phone: [phone] Test Performed by [employer], [facility] [place] [address] [facility] Work Phone: [phone] [facility] Work Phone: [phone] Body Fluid CrystalOrdered By : Nica Nolasco on 01-06-2021 Crystals LM Nom (Urine sed) Negative [facility] Work Phone: [phone] Fluid Type Synovial [facility] Work Phone: [phone] Test Performed by [employer], [facility] [place] [address] [facility] Work Phone: [phone] [facility] Work Phone: [phone] C-Reactive Proteinon 021 C-Reactive Protein 7.9 mg/dL High 0.0-0.9 [facility] CBC and Differentialon 01-06 Abs Baso 0.00 k/uL Normal <0.11 [facility] Abs Bertie 0.00 k/uL Normal <0.87 [facility] Abs Neut 3.46 k/uL Normal 1.45-7.50 [facility] ANC(includeSEG+BAND) 3.46 k/uL Normal [facility] Basophilic stippling LM Ql (Bld) Occasional Normal [facility] Basophils/100 WBC (Bld) 0.0 % Normal H [facility] DTYPE Manual Diff Normal [facility] Eosinophils (Bld) [#/Vol] 0.85 10*3/uL High <0.46 [facility] Eosinophils/100 WBC (Bld) 15.0 % Normal [facility] Erythrocyte distribution width (RBC) [Ratio] 15.2 % High 11.5-15.0 [facility] Hematocrit (Bld) [Volume fraction] 40.5 % Normal 36.0-46.0 [facility] Hemoglobin (Bld) [Mass/Vol] 12.7 g/dL Normal 11.5-15.5 [facility] Left Shift Present Normal [facility] Lymphocytes (Bld) [#/Vol] 1.25 10*3/uL Normal 1.00-4.00 [facility] Lymphocytes/100 WBC (Bld) 22.0 % Normal [facility] Lymphocytes/100 WBC (Bld) 1.0 % Normal [facility] MCH 31.3 pG Normal 26.0-34.0 [facility] MCHC (RBC) [Mass/Vol] 31.4 g/dL Normal 30.5-36.0 [facility] MCV (RBC) [Entitic vol] 99.8 fL Normal 80.0-100.0 H [facility] Monocytes/100 WBC (Bld) 0.0 % Normal [facility] Myelo% 1.0 % Normal [facility] Neutrophils/100 WBC (Bld) 61.0 % Normal [facility] Platelet Estimate Platelet estimate adequate Normal [facility] Platelet mean volume (Bld) [Entitic vol] 10.0 fL Normal 9.0-12.7 [facility] Platelets (Bld) [#/Vol] 193 10*3/uL Normal 150-400 [facility] Polychromasia Slight Normal [facility] RBC (Bld) [#/Vol] 4.06 10*6/uL Normal 3.90-5.20 [facility] Red Cell Morph SEE COMMENT Normal [facility] Comment on above: Result Comment: Unre markable WBC (Bld) [#/Vol] 5.67 10*3/uL Normal 3.70-11.00 [facility] CONSULTon 01-06-2021 CONSULT HNO ID: [id number] Author: Kelvin Espino MD Service: Infectious Disease [...] Will follow. Kelvin Espino MD [facility] [phone] Normal [facility] CONSULT HNO ID: [id number] Author: Kelvin Espino MD Service: Infectious Disease Author Type: Physician Type: Consults Filed: 01/07/2021 8:17 AM Note Text: [facility] Consultation CHARLIE NGUYEN [facility]#: [id number] PATIENT TYPE: LOCATION: [address] [place] [address] ATTENDING PHYSICIAN: KURTIS DANIELSON ORIGINATOR: Kelvin Espino [...] her rehab facility and was sent to [facility] on 01/05. She had an arthrocentesis performed at that time, which revealed 985 white cells. It does not appear that fluid was sent for Gram stain or culture. The patient was transferred to [facility]. She has been continued on her [...] cultures were performed upon arrival to [facility]. Chest x-ray showed no infiltrates. IMPRESSION [...] IV (more content not included)... Normal [facility] CONSULT HNO ID: [id number] Author: Milton Fernandez MD Service: General Internal [...] Disp: 1 D (more content not included)... [facility] CONSULT HNO ID: [id number] Author: Yoni Forrest DO Service: Orthopaedic Surgery [...] receiving vancomycin and cefepime. Knee aspiration at [facility] 985 total nucleated cells. NPO. Hold all AC for possible surgical intervention. Will discuss with [facility] orthopedic staff investigation manager and update plan. SUBJECTIVE Ms. Nguyen is [...] peacefully upon entering room. She reported to [facility] ED where aspiration resulted in 985 total nucleated cells and she was then transferred to [place]. Last dose of eliquis 8/7 PM. Patient [...] 0.9% injecti (more content not included)... Normal [facility] COVID and Resp PCR Panelon 0 01-06-2021 SARS-CoV-2 (COVID-19) RNA TANVIR+probe Ql (Unsp spec) COVID and Resp PCR Panel --> Status: F NEGATIVE: No targets were detected by the [employer] Upper Respiratory Pathogens PCR Panel. _ Expected Result: Not Detected The [employer] Upper Respiratory Pathogens PCR Panel can detect [...] management decisions. This assay was developed by [employer] and distributed under an Emergency Use Authorization (EUA) granted by the FDA for the qualitative detection of SARS-CoV-2 nucleic acid. Provider and patient fact sheets can be found at https://www.fda.gov/m edia/975950/download and https://www.fda.gov/m edia/283743/download. Respiratory Pathogens PCR Panel. _ Expected Result: Not Detected The [employer] Upper Respiratory Pathogens PCR Panel can detect [...] management decisions. This assay was developed by [employer] and distributed under an Emergency Use Authorization (EUA) granted by the FDA for the qualitative detection of SARS-CoV-2 nucleic acid. Provider and patient fact sheets can be found at https://www.fda.gov/m edia/007320/download and https://www.fda.gov/m edia/292495/download. Normal [facility] Comment on above: Performed By: #### B FRP2 ####[facility] [address] [place], [place] Cell Count,Body Fluidon Nucleated Cells 945 {cells}/uL Normal [facility] Comment on above: Performed By: #### D IFSHILO VEGAC, CRSTL #### [facility] [employer] [address] [place], [place] Fluid Type SYNOVIAL Normal [facility] Comment on above: Performed By: #### D IFBF, FLDCC, CRSTL #### [facility] [address] [place], [place] Comp Metabolic Panelon 01-06 Albumin [Mass/Vol] 3.7 g/dL Low 3.9-4.9 [facility] ALP [Catalytic activity/Vol] 119 U/L Normal 34-123 [facility] ALT [Catalytic activity/Vol] 11 U/L Normal 7-38 [facility] Anion gap [Moles/Vol] 12 mmol/L Normal 9-18 [facility] AST [Catalytic activity/Vol] 27 U/L Normal 13-35 [facility] Bilirubin [Mass/Vol] 0.3 mg/dL Normal 0.2-1.3 [facility] Calcium [Mass/Vol] 8.2 mg/dL Low 8.5-10.2 [facility] Chloride [Moles/Vol] 105 mmol/L Normal 97-105 [facility] CO2 [Moles/Vol] 22 mmol/L Normal 22-33 [facility] Creatinine [Mass/Vol] 0.65 mg/dL Normal 0.58-0.96 [facility] eGFR- Amer. >60 Normal [facility] eGFR-All Other Races >60 Normal [facility] Comment on above: Result Comment: eGFR [...] GFR. Glucose [Mass/Vol] 80 mg/dL Normal 74-99 [facility] Potassium [Moles/Vol] 4.4 mmol/L Normal 3.7-5.1 [facility] Protein [Mass/Vol] 7.4 g/dL Normal 6.3-8.0 [facility] Sodium [Moles/Vol] 139 mmol/L Normal 136-144 [facility] Urea nitrogen [Mass/Vol] 8 mg/dL Normal 7-21 [facility] Complete Urinalysison 2020 Appearance (U) Clear Normal Clear [facility] Comment on above: Result Comment: . Performed By: #### C UA2 ####[facility] [address] [place], [place] Bilirubin,Urine Negative Normal Negative [facility] Comment on above: Result Comment: . Performed By: #### C UA2 ####[facility] [address] [place], [place] Color (U) Colorless Normal Lt. Yellow [facility] Comment on above: Result Comment: . Performed By: #### C UA2 ####[facility] [employer] [id number] [place], [place] Glucose Ql (U) Normal Normal Normal (<70) [facility] Comment on above: Result Comment: . Performed By: #### C UA2 ####[place] [address] . [place], [place] Ketone,Urine Negative Normal Negative [facility] Comment on above: Result Comment: . Performed By: #### C UA2 ####[place] [address] . [place], [place] Leukocytes,Urine Negative Normal Negative [facility] Comment on above: Result Comment: . Performed By: #### C UA2 ####[address] [place], [place] Nitrites,Urine Negative Normal Negative [facility] Comment on above: Result Comment: . Performed By: #### C UA2 ####[address] Occult Blood,Urine Negative Normal Negative [facility] Comment on above: Result Comment: . Performed By: #### C UA2 ####[address] [place], [place] pH,Urine 5.5 Normal 5.0-8.0 [facility] Comment on above: Result Comment: . Performed By: #### C UA2 ####[address] Specific [place],Urine 1.007 Normal 1.005 - 1.030 [facility] Comment on above: Result Comment: . Performed By: #### C UA2 ####[address] [place], [place] Total Protein,Urine Negative Normal Negative [facility] Comment on above: Result Comment: . Performed By: #### C UA2 ####[address] Urobilinogen,Urine Normal Normal Normal (0-1) [facility] Comment on above: Result Comment: . Performed By: #### C UA2 ####[address] Crystals,Body Fluidon 2020 [employer] LM Nom (Urine sed) Negative Normal [facility] Comment on above: Performed By: #### D IFBF, FLDCC, CRSTL #### [facility] [employer] [facility] [place] [address] Fluid Type Synovial Normal [facility] Comment on above: Performed By: #### D IFBF, FLDCC, CRSTL #### [facility] [employer] [facility] [place] [address] Differential, Body FluidOrde red By: Nica Nolasco on 01-06-2021 Differential Count 100 [facility] Work Phone: Eosinophils/100 WBC (Bld) 4 % [employer] Work Phone: Lymphocytes/100 WBC (Bld) 4 % [employer] Work Phone: Macrophage count 1 % [facility] Work Phone: Monocytes/100 WBC (Bld) 9 % S [facility] Work Phone: Neutrophils/100 WBC (Bld) 82 % [facility] Work Phone: Test Performed by [facility], [facility] [place] [address] [facility] Work Phone: [employer] Work Phone: Differential,Body Fluidson 0 01-06-2021 Eosinophils/100 WBC (Bld) 4 % Normal [facility] Comment on above: Performed By: #### D IFBF, FLDCC, CRSTL ####[id number] [place] [address] Lymphocytes/100 WBC (Bld) 4 % Normal [facility] Comment on above: Performed By: #### D IFBF, FLDCC, CRSTL ####[address] [place] [address] Macrophages 1 % Normal [facility] Comment on above: Performed By: #### D IFBF, FLDCC, CRSTL ####[address] [place] [address] Monocytes/100 WBC (Bld) 9 % Normal S [facility] Comment on above: Performed By: #### D IFBF, FLDCC, CRSTL ####[facility] [address] [place] [address] Neutrophils/100 WBC (Bld) 82 % Normal [facility] Comment on above: Performed By: #### D IFBF, FLDCC, CRSTL ####[facility] [place] [address] Cells Counted for Diff 100 Normal [facility] Comment on above: Performed By: #### D IFBF, FLDCC, CRSTL ####[facility] [place] [address] HISTORY PHYSICALon HISTORY PHYSICAL HNO ID: [id number] Author: Yoni Forrest DO Service: Orthopaedic Surgery [...] receiving vancomycin and cefepime. Knee aspiration at [facility] 985 total nucleated cells. NPO. Hold all AC for possible surgical intervention. Will discuss with [facility] orthopedic staff investigation manager and update plan. SUBJECTIVE Ms. Nguyen is [...] peacefully upon entering room. She reported to [facility] ED where aspiration resulted in 985 total nucleated cells and she was then transferred to [place]. Last dose of eliquis 8/7 PM. Patient [...] (SEROQUEL) 50 mg (more content not included)... [facility] NURSING PROGon 01-06-2021 NURSING PROG HNO ID: [id number] Author: Bambi Palmer RN Service: ? Author Type: Registered Nurse Type: Nursing Progress Note Filed: 01/06/2021 2:31 PM Note Text: Nursing Progress Note Patient Name: Charlie Nguyen Patient Location: [facility]464/[facility]464-1 Daily Note: 0755 Patient awake in bed, [...] This note was completed by: Bambi Palmer [facility] NURSING PROG HNO ID: [id number] Author: Jan Whitehead RN Service: Nursing Author Type: Registered Nurse Type: Nursing Progress Note Filed: 01/06/2021 6:41 AM Note Text: Nursing Progress Note Patient Name: Charlie Nguyen Patient Location: [facility]464/[facility]464-1 Daily Note: 0400 Patient arrived [...] This note was completed by: Jan Whitehead [facility] STAIN GRAMon 01-06-2021 STAIN GRAM STAIN GRAM --> Status: F Few polymorphonuclear cells/lpf. No organisms seen. No organisms seen. Normal [employer] Comment on above: Performed By: #### C Anitra CORONA/PADILLA ####[employer] [place] [address] UrinalysisOrdered By: Rabia Palomares on 01-06-2021 Appearance (U) Clear Clear NA [employer] Work Phone: 1 Comment on above: . Bilirubin Urine Negative Negative mg/dL [employer] Work Phone: 1 Comment on above: . Color (U) Colorless Lt. Yellow NA [employer] Work Phone: 1 Comment on above: . Glucose, Ur Normal Normal (<70) mg/dL [employer] Work Phone: 1 Comment on above: . Ketones Ql (U) Negative Negative mg/dL [employer] Work Phone: 1 Comment on above: . LEUKOCYTES, UA Negative Negative Simon/uL [employer] Work Phone: 1 Comment on above: . Nitrite, Urine Negative Negative NA [employer] Work Phone: 1 Comment on above: . Occult Blood,Urine Negative Negative mg/dL [employer] Work Phone: 1 Comment on above: . pH (U) 5.5 [pH] [employer] Work Phone: 1 Comment on above: . Specific [place], Urine 1.007 S [facility] Work Phone: 1 Comment on above: . Total Protein, Urine Negative Negativ e mg/dL [employer] Work Phone: 1 Comment on above: . Urobilinogen, Urine Normal Normal ( 0-1) mg/dL [employer] Work Phone: [phone] Comment on above: . Test Performed by [employer], [address] [place] [address] [employer] Work Phone: [employer] Work Phone: XR CHEST 1V FRONTAL PORTon [...] Jan 06 2021 10:51AM EST [id number] N [facility] XR KNEE 2V AP/LAT RTon 01-06 [...] 2021 7:48PM EST [id number] Normal [facility] C-REACTIVE PROTEINOrdered By : Kian Palomares on 01-05-2021 CRP [Mass/Vol] 64.3 mg/L High 0.0 - 6.0 mg/L [employer] Work Phone: [phone] Comment on above: . C-Reactive Proteinon 021 CRP [Mass/Vol] 64.3 mg/L High 0.0-6.0 [employer] Comment on above: Result Comment: . Performed By: #### C RP2, PCAL, CMP3M, LIPA4, HEMDF, ESR #### [employer] [address] [place] [phone] CBC auto differentialOrdered By: Kian Palomares on 01-05-2021 Absolute Baso # 0.0 10*3/uL 0.0 - 0.2 10*3/uL [employer] Work Phone: [phone] Absolute Neut # 4.3 10*3/uL 1.8 - 7.0 10*3/uL [employer] Work Phone: [phone] Hemoglobin.gastrointesti nal spec 1 Ql (Stl) 11.3 g/dL Low 11.7 - 16.0 g/dL [employer] Work Phone: [phone] MCHC (RBC) [Mass/Vol] 32.9 % 32.0 - 36.0 % [employer] Work Phone: [phone] Platelet distribution width (Bld) [Ratio] 15.0 % High 11.5 - 14.5 % [employer] Work Phone: [phone] CR Chest Portableon 01-06-20 21 CR Chest Portable Patient Name: CHARLIE NGUYEN Diagnostic Radiology ACCESSION EXAM DATE/TIME PROCEDURE ORDERING PROVIDER [id number] 01/05/2021 20:28 EDT CR Chest Portable [id number] -SHARA KIAN CPT code 83644 Reason For Exam (CR Chest Portable) sepsis [...] Transcribed Date and Time: 01/05/2021 8:49 Normal [facility] CR Knee 3 Views Righton CR Knee 3 Views Right Patient [id number] Diagnostic Radiology ACCESSION EXAM DATE/TIME PROCEDURE ORDERING PROVIDER [id number] 01/05/2021 20:28 EDT CR Knee 3 Views Right [id number] SILVA KIAN CPT code 45518 Reason For Exam (CR Knee 3 Views [...] Transcribed Date and Time: 01/05/2021 8:45 Normal [facility] CTA Chest W WO (PE study)Ord ered By: Kian Palomares on 01-05-2021 Patient Name: CHARLIE NGUYEN Computed Tomography ACCESSION EXAM DATE/TIME PROCEDURE ORDERING PROVIDER [id number] 01/05/2021 22:12 EDT CTA Chest w/ + w/o [id number] Araseli SILVA CPT code 08409 Q9967 Reason For Exam (CTA Chest w/ [...] Time: 01/05/2021 10:19 [facility] Work Phone: [facility], [facility] Results From [facility] - 01/05/2021 10:34 PM EDT Patient Name: CHARLIE NGUYEN Computed Tomography ACCESSION EXAM DATE/TIME PROCEDURE ORDERING PROVIDER [id number] 01/05/2021 22:12 EDT CTA Chest w/ + w/o [id number] Araseli SILVA CPT code 57685 Q9967 Reason For Exam (CTA Chest w/ [...] VLADIMIR Transcribed Date and Time: 01/05/2021 10:19 [facility] Work [facility]: [facility] Work Phone: CTA Chest w/ + w/o Contrasto n 01-05-2021 CTA Chest w/ + w/o Contrast Patient Name: CHARLIE NGUYEN Computed Tomography ACCESSION EXAM DATE/TIME PROCEDURE ORDERING PROVIDER [id number] 01/05/2021 22:12 EDT CTA Chest w/ + w/o [id number] -PALOMARES, Contrast KIAN CPT code 61196 Q9967 Reason For Exam (CTA Chest w/ [...] Transcribed Date and Time: 01/05/2021 10:19 Normal [facility] Comp Panel with Mg Reflexon 01-05-2021 ALT [Catalytic activity/Vol] 12 U/L Normal 0-34 [facility] Comment on above: Result Comment: The ALT test is performed by an updated assay method. Please note that the reference intervals have been changed and are now sex specific. Performed By: #### C RP2, PCAL, CMP3M, LIPA4, HEMDF, ESR #### [facility] [address] [place], [place] Calcium [Mass/Vol] 8.2 mg/dL Low 8.4-10.4 [facility] Comment on above: Performed By: #### C RP2, PCAL, CMP3M, LIPA4, HEMDF, ESR #### [facility] [address] [place], [place] Glucose [Mass/Vol] 109 mg/dL High 70-100 [facility] Comment on above: Performed By: #### C RP2, PCAL, CMP3M, LIPA4, HEMDF, ESR #### [facility] [address] [place], [place] Urea nitrogen [Mass/Vol] 16 mg/dL Normal 7-20 [facility] Comment on above: Performed By: #### C RP2, PCAL, CMP3M, LIPA4, HEMDF, ESR #### [facility] [address] [place], [place] ALP [Catalytic activity/Vol] 108 U/L Normal 38-126 [facility] Comment on above: Performed By: #### C RP2, PCAL, CMP3M, LIPA4, HEMDF, ESR #### [address] Anion gap [Moles/Vol] 5 mmol/L Normal 3-13 [facility] Comment on above: Performed By: #### C RP2, PCAL, CMP3M, LIPA4, HEMDF, ESR #### [address] AST [Catalytic activity/Vol] 52 U/L High 15-46 [facility] Comment on above: Performed By: #### C RP2, PCAL, CMP3M, LIPA4, HEMDF, ESR #### [address] Bilirubin [Mass/Vol] 0.4 mg/dL Normal 0.2-1.3 [facility] Comment on above: Performed By: #### C RP2, PCAL, CMP3M, LIPA4, HEMDF, ESR #### [address] CO2 [Moles/Vol] 23 mmol/L Normal 22-30 [facility] Comment on above: Performed By: #### C RP2, PCAL, CMP3M, LIPA4, HEMDF, ESR #### [address] Creatinine [Mass/Vol] 0.83 mg/dL Normal 0.52-1.25 [facility] Comment on above: Performed By: #### C RP2, PCAL, CMP3M, LIPA4, HEMDF, ESR #### [address] GFR/1.73 sq M.predicted among blacks MDRD (S/P/Bld) [Vol rate/Area] 86.0 mL/min/{1.73_m2} Normal >60 [facility] Comment on above: Performed By: #### C RP2, PCAL, CMP3M, LIPA4, HEMDF, ESR #### [address] [address] GFR/1.73 sq M.predicted among non-blacks MDRD (S/P/Bld) [Vol rate/Area] 74.2 mL/min/{1.73_m2} Normal >60 [facility] Comment on above: Result Comment: KDIG [...] RP2, PCAL, CMP3M, LIPA4, HEMDF, ESR #### [address] Protein [Mass/Vol] 6.9 g/dL Normal 6.3-8.2 [facility] Comment on above: Performed By: #### C RP2, PCAL, CMP3M, LIPA4, HEMDF, ESR #### [address] Potassium [Moles/Vol] 4.3 mmol/L Normal 3.5-5.1 [facility] Comment on above: Performed By: #### C RP2, PCAL, CMP3M, LIPA4, HEMDF, ESR #### [address] Albumin [Mass/Vol] 3.4 g/dL Low 3.5-5.0 [facility] Comment on above: Performed By: #### C RP2, PCAL, CMP3M, LIPA4, HEMDF, ESR #### [facility] [address] [place], [place] Chloride [Moles/Vol] 105 mmol/L Normal 98-107 [facility] Comment on above: Performed By: #### C RP2, PCAL, CMP3M, LIPA4, HEMDF, ESR #### [facility] [address] [place], [place] Sodium [Moles/Vol] 132 mmol/L Low 135-145 [facility] Comment on above: Performed By: #### C RP2, PCAL, CMP3M, LIPA4, HEMDF, ESR #### [facility] [address] [place], [place] Comprehensive Metabolic Pane l w/ Reflex to MGOrdered By: Kian Palomares on 01-05-2021 Albumin [Mass/Vol] 3.4 g/dL Low 3.5 - 5.0 g/dL [facility] Work Phone: [phone] ALP (Bld) [Catalytic activity/Vol] 108 U/L 38 - 126 U/L [facility] Work Phone: [phone] ALT [Catalytic activity/Vol] 12 U/L 0 - 34 U/L [facility] Work Phone: [phone] Comment on above: The ALT test is perf ormed by an updated assay method. Please note that the reference intervals have been changed and are now sex specific. Anion gap [Moles/Vol] 5 mmol/L 3 - 13 mmol/L [facility] Work Phone: [phone] AST [Catalytic activity/Vol] 52 U/L High 15 - 46 U/L [facility] Work Phone: Bilirubin [Mass/Vol] 0.4 mg/dL 0.2 - 1 .3 mg/dL [facility] Work Phone: [phone] Calcium [Mass/Vol] 8.2 mg/dL Low 8.4 - 10. 4 mg/dL [facility] Work Phone: Chloride [Moles/Vol] 105 mmol/L 98 - 10 7 mmol/L [facility] Work Phone: [phone] CO2 [Moles/Vol] 23 mmol/L 22 - 30 mmol/L [employer] Work Phone: [phone] Creatinine [Mass/Vol] 0.83 mg/dL 0.52 - 1.25 mg/dL [facility] Work Phone: EGFR IF NonAfrican Iraqi 74.2 mL/min >60 [facility] Work Phone: [phone] Comment on above: KDIGO guidelines pro vide [...] fraction] 6.9 g/dL 6.3 - 8.2 g/dL [employer] Work Phone: [phone] GFR/1.73 sq M.predicted among blacks MDRD (S/P/Bld) [Vol rate/Area] 86.0 mL/min/{1.73_m2} >60 [facility] Work Phone: [phone] Glucose [Mass/Vol] 109 mg/dL High 70 - 100 mg/dL [facility] Work Phone: [phone] Potassium [Moles/Vol] 4.3 mmol/L 3.5 - 5.1 mmol/L [facility] Work Phone: [phone] Sodium [Moles/Vol] 132 mmol/L Low 135 - 145 mmol/L [facility] Work Phone: [phone] Urea nitrogen (BldV) [Mass/Vol] 16 mg/dL 7 - 20 mg/dL [facility] Work Phone: ED Provider Noteon 1 ED Provider Note Emergency Department Encounter [facility] EMERGENCY DEPT Patient: Charlie Nguyen : 1955 Date of Evaluation: 01/05/2021 ED Provider: RAH Telles As the [id number]-pahvfr, I performed a medical screening history and physical exam on this patient. An N95 and gloves were worn during the entirety of this encounter. HISTORY OF PRESENT ILLNESS In brief, Charlie Nguyen is a 65 y.o. female that presents for right knee pain, fever that started today. Patient had a right knee surgery done on the by Dr. Parrish at [facility]. Patient had an infection in her right knee, and underwent an washout. Patient had a knee replacement approximately 4 years ago, and was found to have a septic joint couple of weeks ago, and underwent washout [facility]. Patient has been on IV antibiotics at her rehab facility. Patient states that today, start having worsening pain and a fever of 102 degrees Fahrenheit. Patient states that the swelling and the pain has been getting worse. Patient denies any nausea, vomiting, lightheadedness, dizziness, chest pain, shortness of breath, numbness or tingling. PHYSICAL EXAM ED Triage Vitals [01/05/21 191] Enc Vitals Group BP (!) 78/51 Pulse 81 Resp 14 Temp 100.5 ?F (38.1 ?C) Temp Source Oral SpO2 92 % Weight 230 lb (104.3 kg) Height 5' 11" (1.803 m) Head Circumference Peak Flow Pain Score Pain Loc Pain Edu? Excl. in ? Patient was seen initially by myself in [...] RAH Telles [employer] RAH Telles 01/05/21 192 Emergency Department Encounter [facility] EMERGENCY DEPT Patient: Charlie Nguyen [...] the pain is a burning intermittent 02/08 [place] (Location/Symptom, Timing/Onset, Context/Setting, Quality, Duration, Modifying Factors, [...] otherwise acutely negative except as in the [place]. Past History Past Medical History: Diagnosis Date [...] Physical Activi (more content not included)... Normal [facility] ED Provider Note Emergency Department Encounter [facility] EMERGENCY DEPT Patient: Charlie Nguyen : 1955 Date of Evaluation: 01/05/2021 ED Supervising Physician: Erika uHdson MD I independently examined and evaluated Charlie [...] or pain out of proportion. Focused exam: Aez-emf-tiemipqno in no acute distress. Alert and oriented [...] for STEMI. Patient with left axis deviation. MI 167, QRS 92, with a QTC of [...] was discussed with Dr. Danielson at [facility] who accepted patient for admission. Patient [...] are mis-transcribed.) Erika Hudson MD Acute Care [facility] Erika Hudson MD 01/06/21 0505 Normal [facility] Hemogram w/ Autodiffon 01-05 Abs Baso Cnt 0.0 10*3/uL Normal 0.0-0.2 [facility] Comment on above: Performed By: #### C RP2, PCAL, CMP3M, LIPA4, HEMDF, ESR #### [address] [address] Abs Neutrophile Cnt 4.3 10*3/uL Normal 1.8-7.0 [facility] Comment on above: Performed By: #### C RP2, PCAL, CMP3M, LIPA4, HEMDF, ESR #### [facility] [address] [place] [address] Erythrocyte distribution width (RBC) [Ratio] 15.0 % High 11.5-14.5 [facility] Comment on above: Performed By: #### C RP2, PCAL, CMP3M, LIPA4, HEMDF, ESR #### [place] [address] [place], [place] Hemoglobin (Bld) [Mass/Vol] 11.3 g/dL Low 11.7-16.0 [facility] Comment on above: Performed By: #### C RP2, PCAL, CMP3M, LIPA4, HEMDF, ESR #### [address] [place] [address] [place], [place] MCHC 32.9 % Normal 32.0-36.0 [facility] Comment on above: Performed By: #### C RP2, PCAL, CMP3M, LIPA4, HEMDF, ESR #### [address] Hemogram w/ AutodiffOrdered By: Kian Palomares on 01-05-2021 Basophils/100 WBC (Bld) 0.1 % Normal 0.0-2.0 [facility] Work Phone: Comment on above: Performed By: #### C RP2, PCAL, CMP3M, LIPA4, HEMDF, ESR #### [address] Eosinophils (Bld) [#/Vol] 0.7 10*3/uL High 0.0-0.5 [facility] Work Phone: Comment on above: Performed By: #### C RP2, PCAL, CMP3M, LIPA4, HEMDF, ESR #### [address] Eosinophils/100 WBC (Bld) 11.3 % High 1.0-6.0 [facility] Work Phone: Comment on above: Performed By: #### C RP2, PCAL, CMP3M, LIPA4, HEMDF, ESR #### [address] Granulocytes/100 WBC (Bld) 68.6 % Normal 40.0-80.0 [facility] Work Phone: [phone] Comment on above: Performed By: #### C RP2, PCAL, CMP3M, LIPA4, HEMDF, ESR #### [employer] [address] Hematocrit (Bld) [Volume fraction] 34.5 % Low 35.0-47.0 [facility] Work Phone: [phone] Comment on above: Performed By: #### C RP2, PCAL, CMP3M, LIPA4, HEMDF, ESR #### [facility] [employer] [address] Lymphocytes (Bld) [#/Vol] 1.1 10*3/uL Normal 1.0-4.3 [facility] Work Phone: [phone] Comment on above: Performed By: #### C RP2, PCAL, CMP3M, LIPA4, HEMDF, ESR #### [facility] [employer] [address] Lymphocytes/100 WBC (Bld) 16.7 % Low 20.0-40.0 [facility] Work Phone: [phone] Comment on above: Performed By: #### C RP2, PCAL, CMP3M, LIPA4, HEMDF, ESR #### [facility] [employer] [address] MCH (RBC) [Entitic mass] 31.7 pg Normal 26.0-34.0 [facility] Work Phone: [phone] Comment on above: Performed By: #### C RP2, PCAL, CMP3M, LIPA4, HEMDF, ESR #### [employer] [address] MCV (RBC) [Entitic vol] 96.5 fL Normal 79.0-98.0 [facility] Work Phone: [phone] Comment on above: Performed By: #### C RP2, PCAL, CMP3M, LIPA4, HEMDF, ESR #### [employer] [address] Monocytes (Bld) [#/Vol] 0.2 10*3/uL Normal 0.0-0.8 [facility] Work Phone: [phone] Comment on above: Performed By: #### C RP2, PCAL, CMP3M, LIPA4, HEMDF, ESR #### [employer] [facility] [place] [address] Monocytes/100 WBC (Bld) 3.3 % Normal 2.0-10.0 [facility] Work Phone: [phone] Comment on above: Performed By: #### C RP2, PCAL, CMP3M, LIPA4, HEMDF, ESR #### [employer] [facility] [place], [place] Platelet mean volume (Bld) [Entitic vol] 8.3 fL Normal 7.4-10.4 [facility] Work Phone: [phone] Comment on above: Performed By: #### C RP2, PCAL, CMP3M, LIPA4, HEMDF, ESR #### [employer] [facility] [address] [place], [place] Platelets (Bld) [#/Vol] 208 10*3/uL Normal 140-440 [facility] Work Phone: [phone] Comment on above: Performed By: #### C RP2, PCAL, CMP3M, LIPA4, HEMDF, ESR #### [employer] [facility] [place], [place] RBC (Bld) [#/Vol] 3.57 10*6/uL Low 3.80-5.20 [facility] Work Phone: [phone] Comment on above: Performed By: #### C RP2, PCAL, CMP3M, LIPA4, HEMDF, ESR #### [employer] [address] [place] [address] WBC (Bld) [#/Vol] 6.3 10*3/uL Normal 3.6-10.7 [facility] Work Phone: [phone] Comment on above: Performed By: #### C RP2, PCAL, CMP3M, LIPA4, HEMDF, ESR #### [employer] [address] [place] [address] Lactate, SepsisOrdered By: Anitra Palomares on 01-05-2021 Lactate [Moles/Vol] 0.7 mmol/L 0.7 - 2. 0 mmol/L [facility] Work Phone: [phone] Performed by [employer], [address] [place] [address] [facility] Work Phone: [phone] [facility] Work Phone: [phone] Lactic Acid, Sepsison 2020 Lactate [Moles/Vol] 0.7 mmol/L Normal 0.7-2.0 [facility] [employer] Comment on above: Performed By: #### L ACTS ####[facility] [place] [address] Lipaseon 01-05-2021 Lipase [Catalytic activity/Vol] 29 U/L Normal 23-300 [facility] Comment on above: Performed By: #### C RP2, PCAL, CMP3M, LIPA4, HEMDF, ESR #### [employer] [address] [place] [address] LipaseOrdered By: Kian velasquez on 01-05-2021 Lipase [Catalytic activity/Vol] 29 U/L 23 - 300 U/L [facility] Work Phone: [phone] Panel InformationOrdered By: Kian Palomares on 01-05-2021 Interpretation and review of laboratory results Abnormal [facility] Work Phone: [phone] Test Performed by [employer], [address] [place] [address] [facility] Work Phone: [phone] [facility] Work Phone: [phone] Interpretation and review of laboratory results Abnormal [facility] Work Phone: [phone] Test Performed by [employer], [address] [place] [address] [facility] Work Phone: [phone] [facility] Work Phone: [phone] Procalcitoninon 01-05-2021 Procalcitonin 0.99 ng/mL High 0.00-0.09 [facility] [employer] Comment on above: Performed By: #### C RP2, PCAL, CMP3M, LIPA4, HEMDF, ESR #### [employer] [address] [address] Interpretation See Below Normal [facility] Comment on above: Result Comment: PCT <0.50 = Low risk of severe sepsis and/or septic shock. PCT >2.00 = High risk of severe sepsis and/or septic shock. Performed By: #### C RP2, PCAL, CMP3M, LIPA4, HEMDF, ESR #### [employer] [address] [place] [address] ProcalcitoninOrdered By: Lillian Palomares on 01-05-2021 Interpretation See Below [employer] Work Phone: Comment on above: PCT <0.50 = Low risk of severe sepsis and/or septic shock. PCT >2.00 = High risk of severe sepsis and/or septic shock. Interpretation and review of laboratory results Abnormal [employer] Work Phone: Procalcitonin 0.99 ng/mL High 0.00 - 0.09 ng/mL [employer] Work Phone: Test Performed by [employer], [address] [place] [address] [employer] Work Phone: [employer] Work Phone: Respiratory Panel, Molecular , with [...] management decisions. This assay was developed by [employer] and distributed under an Emergency Use Authorization (EUA) granted by the FDA for the qualitative detection of SARS-CoV-2 nucleic acid. Provider and patient fact sheets can be found at https://www.[facility].gov/m edia/984621/download and https://www.fda.gov/m edia/697746/download. [employer] Work Phone: Test Performed by [employer], [address] [place] [address] [employer] Work Phone: [employer] Work Phone: Sed Rateon 01-05-2021 Sed Rate 27 mm/h High 0-20 [employer] Comment on above: Performed By: #### C RP2, PCAL, CMP3M, LIPA4, HEMDF, ESR #### [employer] [address] [place] [address] Sedimentation RateOrdered By : Kian Palomares on 01-05-2021 Sed Rate 27 mm/h High 0 - 20 mm/h [employer] Work Phone: XR CHEST PORTABLEOrdered By: Kian Palomares on 01-05-2021 Patient Name: CHARLIE NGUYEN Diagnostic Radiology ACCESSION EXAM DATE/TIME PROCEDURE ORDERING PROVIDER [id number] 01/05/2021 20:28 EDT CR Chest Portable [id number] KIAN SILVA CPT code 01774 Reason For Exam (CR Chest Portable) sepsis [...] Phone: [facility], [facility] Incoming Radiology Results From [facility] - 01/05/2021 8:51 PM EDT Patient Name: CHARLIE NGUYEN Diagnostic Radiology ACCESSION EXAM DATE/TIME PROCEDURE ORDERING PROVIDER [id number] 01/05/2021 20:28 EDT CR Chest Portable [id number] KIAN SILVA CPT code 74386 Reason For Exam (CR Chest Portable) sepsis [...] Radiology ACCESSION EXAM DATE/TIME PROCEDURE ORDERING PROVIDER [id number] 01/05/2021 20:28 EDT CR Knee 3 Views Right [id number] BLACKMON CPT code 39809 Reason For Exam (CR Knee 3 Views [...] Time: 01/05/2021 8:45 [facility] Work Phone: Rodolfo, [facility] Incoming Radiology Results From [facility] - 01/05/2021 8:51 PM EDT Patient Name: CHARLIE NGUYEN Diagnostic Radiology ACCESSION EXAM DATE/TIME PROCEDURE ORDERING PROVIDER [id number] 01/05/2021 20:28 EDT CR Knee 3 Views Right [id number] -SHARA KIAN CPT code 34129 Reason For Exam (CR Knee 3 Views [...] and Time: 01/05/2021 8:45 [facility] Work Phone: [facility] Work Phone: [place] 12-26-2020 CNDS HNO ID: [id number] Author: Alexandria Reddy MD Service: Hospital Medicine [...] MD Consulting: Kurtis Danielson MD Primary Service: [place] [address] MY CONDITION AT DISCHARGE: Stable REASON I [...] with irrigation and debridement (with polyethylene exchange)- 7/21/21 IMPORTANT TEST/PROCEDURES: XR chest XR knee TEST RESULTS NOT AVAILABLE AT THIS TIME: No pending results Discharge Disposition Discharge Disposition: Half-Way For Intermediate Care/Assisted Living Activity When You [...] every Thursday faxed to Sanjana Tarango at [phone] ? UTI UA with pyuria; culture?pos for Pseudomonas - patient unable to use quinolone due to quetiapine use - Treated with zosyn, completed course ? Hx of DVT and PE Dx in 2018; on eliquis. stable s/p R-knee wash Eliquis resumed on POD 6 MS (multiple sclerosis) ([facility]) POA: Yes WC bound Urine and fecal incontinence LE parasthesia ? Essential hypertension POA: Yes Controlled - Continue Metoprolol; hold HCTZ? ? Current smoker POA: Yes - Nicotine patches ? Seizure (HCC) POA: Yes - Continue Depakote ? Depressoin/Anxiety - c/w paxil and seroquil ? ? Treatment Team: Attending Provider: Alexandria Reddy MD Consulting: Kurtis Danielson MD Primary Service: [facility] 1 Transitions of Care Critical Issues: NEW BASELINE FOR PATIENT: 1. LAB MONITORING NEEDED: Needs CBC w/ diff, CMP, vancomycin trough, ESR, CRP every Thursday faxed to Sanjana Tarango at [phone] SPECIALIST FOLLOW-UP: 1. infectious diseaes 2. Orthopedic [...] ) Preliminary resu (more content not included)... [facility] NURSING PROGon 12-26-2020 NURSING PROG HNO ID: [id number] Author: Sandra Gonzales RN Service: ? Author Type: Registered Nurse Type: Nursing Progress Note Filed: 12/26/2020 6:51 PM Note Text: Nursing Progress Note Patient Name: Charlie Nguyen Patient Location: [place] [address] Daily Note: Bedside report received, assumed care [...] pt's request, pt ok to be discharged, picker tender scheduled for 1830, will monitor. 1845 discharge instructions given to the pt, pt educated on how and when to take pain meds, belongings with pt, transport here, pt left unit via cart, report called [facility]. This note was completed by: Sandra Gonzales [facility] NUTRITIONon 12-26-2020 NUTRITION HNO ID: [id number] Author: Carmen Garner DTR Service: Nutrition Therapy Author Type: Filler Sifter Helper Type: Nutrition Filed: 12/26/2020 12:21 PM Note Text: NUTRITION THERAPY OBIEE REPORT DEVELOPER NOTE SERVICE DATE: 12/26/2020 SERVICE TIME: 10:18 [...] December 26, 2020 TIME: 12:18 PM PAGER: [phone] [facility] THERAPY NTon 12-26-2020 THERAPY NT HNO ID: [id number] Author: KEV Sánchez/L Service: Occupational Therapy Author Type: Occupational Therapist Type: Therapy (PT/OT/Speech/Resp) Filed: 12/26/2020 2:28 PM Note Text: OCCUPATIONAL THERAPY MISSED VISIT SERVICE DATE: 12/26/2020 SERVICE TIME: 1415 to 1420 ROOM: [address] Attempted Treatment. Patient not seen due to Declined (Pt declines getting up to the chair; wants to sleep as she reports she's been up since 6:30. Continue as able. Nsg notified.). SIGNATURE: KEV Sánchez/L PATIENT NAME: Charlie Nguyen DATE: December 26, 2020 TIME: 2:28 PM [facility] C difficile PCRon 12-25-2020 C difficile PCR Negative [facility] Comment on above: Performed By: #### C DPCR #### [place] [address] NURSING PROGon 12-25-2020 NURSING PROG HNO ID: [id number] Author: Eduardo Ley RN Service: Nursing Author Type: Registered Nurse Type: Nursing Progress Note Filed: 12/26/2020 2:51 AM Note Text: Nursing Progress Note Patient Name: Charlie Nguyen Patient Location: [place] [address] Daily Note: 1900 Assumed Care of patient. Received bedside report from off going nurse. Patient's bed alarm is on and functioning. 2219 patient is assessed as charted and medicated per MAR This note was completed by: Eduardo Ley [facility] NURSING PROG HNO ID: [id number] Author: Turner Patten RN Service: Nursing Author Type: Registered Nurse Type: Nursing Progress Note Filed: 12/25/2020 12:04 PM Note Text: Nursing Progress Note Patient Name: Charlie Nguyen Patient Location: -4A-454/-4A-454-P Daily Note:Assessment as charted. Patient denies any chest pain or shortness of breath. Patient is lethargic and disoriented. Patient did not believe she was in the hospital. Goal for the day is to control pain. Bed in low position, bed alarm on, call light in reach. Will continue to monitor. This note was completed by: Turner Patten [facility] NURSING PROG HNO ID: [id number] Author: Eduardo Ley RN Service: Nursing Author Type: Registered Nurse Type: Nursing Progress Note Filed: 12/25/2020 2:01 AM Note Text: Nursing Progress Note Patient Name: Charlie Nguyen Patient Location: -4A-454/-4A-454-P Daily Note: 1900 Assumed Care of patient. Received bedside report from off going nurse. Patient's bed alarm is on and functioning. 2211 patient is aANDo x3, patient is assessed as charted and medicated per MAR This note was completed by: Eduardo Ley [facility] THERAPY NTon 12-25-2020 THERAPY NT HNO ID: [id number] Author: Nathaly Bueno PTA Service: Physical Therapy Author Type: Mud Analysis Well Logging Operator Type: Therapy (PT/OT/Speech/Resp) Filed: 12/25/2020 12:51 PM Note Text: Attestation signed by Iris Pickens PT at 12/25/2020 2:47 PM I reviewed and agree with the documentation corresponding to this therapy visit. SIGNATURE: Iris Pickens PT DATE: December 25, 2020 TIME: 2:47 PM PHYSICAL THERAPY MISSED VISIT SERVICE DATE: 12/25/2020 SERVICE TIME: 1000 to 1000 ROOM: [address] Attempted Treatment. Patient not seen due to (pt lethargic and with low BP per nurse). SIGNATURE: Nathaly Bueno PTA PATIENT NAME: Charlie Nguyen DATE: December 25, 2020 TIME: 12:51 PM [facility] THERAPY NT HNO ID: [id number] Author: ARTHUR Madrid Service: Occupational Therapy Author Type: Track Watchman Type: Therapy (PT/OT/Speech/Resp) Filed: 12/25/2020 12:27 PM Note Text: Attestation signed by GYPSY Lemon at 12/25/2020 3:33 PM Collaboration with ARTHUR occurred and documentation corresponding to this therapy visit was reviewed. ANJUM Lemon OTR/L OCCUPATIONAL THERAPY MISSED VISIT SERVICE DATE: 12/25/2020 SERVICE TIME: 1000 to 1000 ROOM: [facility] Attempted Treatment. Patient not seen due to (per nurse pt lethargic and confused with low blood pressure hold this AM). SIGNATURE: ARTHUR Madrid PATIENT NAME: Charlie Nguyen DATE: December 25, 2020 TIME: 12:27 PM Normal [facility] Vancomycinon 12-25-2020 Vancomycin 13.3 ug/mL Normal 10.0-20.0 [facility] Comment on above: Result Comment: Refe rence ranges and high/low indicator flags are provided as general guidelines only. The treating physician must determine appropriate target levels/dosing based on the specific clinical situation. Basic Metabolic Panlon 12-24 Anion gap [Moles/Vol] 12 mmol/L Normal 9-18 [facility] Calcium [Mass/Vol] 9.4 mg/dL Normal 8.5-10.2 [facility] Chloride [Moles/Vol] 93 mmol/L Low 97-105 [facility] CO2 [Moles/Vol] 30 mmol/L Normal 22-33 [facility] Creatinine [Mass/Vol] 0.82 mg/dL Normal 0.58-0.96 [facility] eGFR- Amer. >60 Normal [facility] eGFR-All Other Races >60 Normal [facility] Comment on above: Result Comment: eGFR [...] GFR. Glucose [Mass/Vol] 85 mg/dL Normal 74-99 [facility] Potassium [Moles/Vol] 4.2 mmol/L Normal 3.7-5.1 [facility] Sodium [Moles/Vol] 135 mmol/L Low 136-144 [facility] Urea nitrogen [Mass/Vol] 7 mg/dL Normal 7-21 [facility] CASE MANAGEMon 12-24-2020 CASE MANAGEM HNO ID: [id number] Author: Laura Silva RN Service: Case Management Author Type: Registered Nurse Type: Care Mgt Progress Note Filed: 12/24/2020 2:16 PM Note Text: CARE MANAGEMENT PROGRESS NOTE SERVICE DATE: 12/24/2020 SERVICE TIME: 11:41 AM LOS: 5 days Needs Prior to Discharge: Discharge Transportation;Other: See Comment (updated COVID) Patient roasterman resident at [facility]. Facility aware that PICC has been placed [...] 24, 2020 TIME: 11:41 AM PAGER/CONTACT #: [phone] Normal [facility] Coronavirus 2019on 1 SARS-CoV-2 (COVID-19) RNA TANVIR+probe Ql (Unsp spec) UPPER RESPIRATORY TRACT SWAB Normal [facility] Comment on above: Performed By: #### C OVID ####[facility], [place] [phone] SARS-CoV-2 (COVID-19) RNA TANVIR+probe Ql (Unsp spec) Negative for COVID19 (SARS CoV2) by RT-PCR or equivalent method. Normal Negative for COVID19 (SARS CoV2) by RT-PCR or equivalent method. [facility] Comment on above: Result Comment: This test was developed and its performance characteristics determined by [facility] [place]. This test has been authorized by FDA under an Emergency Use Authorization (EUA). This test has been validated in accordance with the FDA's Guidance Document "Policy for Diagnostics Testing in Laboratories Certified to Perform High Complexity Testing under CLIA prior to Emergency use Authorization for Coronavirus Disease 2019 during the Public Health Emergency" issued on July 30, 2019. Test performed by [facility], [facility] [place], [address], [place] [address]. Performed By: #### C OVID ####[facility], [place] [phone] NURSING PROGon 12-24-2020 NURSING PROG HNO ID: [id number] Author: Turner Patten RN Service: Nursing Author Type: Registered Nurse Type: Nursing Progress Note Filed: 12/24/2020 11:33 AM Note Text: Nursing Progress Note Patient Name: Charlie Nguyen Patient Location: [facility]-P Daily Note:Assessment as charted. Patient resting in bed. Patient denies any chest pain or shortness of breath. Patient complains of 8/10 pain in right knee, medicated for pain. Goal for the day is to control pain and increase mobility. Bed in low position, bed alarm on, call light in reach. Will continue to monitor. This note was completed by: Turner Patten [facility] THERAPY NTon 12-24-2020 THERAPY NT HNO ID: [id number] Author: KEV Sánchez/L Service: Occupational Therapy Author Type: Occupational Therapist Type: Therapy (PT/OT/Speech/Resp) Filed: 12/24/2020 5:51 PM Note Text: Occupational Therapy Treatment SERVICE DATE: 12/24/2020 SERVICE TIME: 1025 to 1050 ROOM: [facility]- Recommended Discharge Disposition: Subacute/SNF Recommended Discharge Disposition [...] Patient Lives With: Facility Care (LTC at [facility]) Assistance Available: 24 Hour Entry To Home: No Stairs Tub/Shower Type: walk in shower Laundry: facility does laundry Equipment Owned: Wheelchair (reporting has own WC; manual) Prior Functional Level: Required Assistance Assistance Required With: Cleaning;Laundry;Safe ty;Self Care;Shopping;Transpo rtation;Medication Management;Meals Prior Functional Level Comments: pt questionable historian; reporting from [facility]; reporting pivot transfers only to , bed, shower chair, etc; has own WC; [...] Sit Pivot (x2, mod cues for sequencing, SUPERVISORY CIVIL ENGINEER) Toilet/Commode Shower Functional Mobility (non ambulatory) Blank [...] with: Minimal Assistan (more content not included)... [facility] THERAPY NT HNO ID: [id number] Author: Toshia Velázquez, PT Service: Physical Therapy Author Type: Physical Therapist Type: Therapy (PT/OT/Speech/Resp) Filed: 12/24/2020 1:14 PM Note Text: Physical Therapy Treatment SERVICE DATE: 12/24/2020 SERVICE TIME: 1025 to 1050 ROOM: [facility]P Recommended Discharge Disposition Comments: rec trial SNF [...] Patient Lives With: Facility Care (LTC at [facility]) Assistance Available: 24 Hour Entry To Home: No Stairs Tub/Shower Type: walk in shower Laundry: facility does laundry Equipment Owned: Wheelchair (reporting has own WC; manual) Prior Functional Level: Required Assistance Assistance Required With: Cleaning;Laundry;Safe ty;Self Care;Shopping;Transpo rtation;Medication Management;Meals Prior Functional Level Comments: pt questionable historian; reporting from [facility]; reporting pivot transfers only to , bed, shower chair, etc; has own WC; [...] (ADL);Muscle Weakness (generalized) Interventions Provided: Therapeutic Activity (37624) Therapeutic Activity (37607) Treatment Minutes: 25 $ Therapeutic Activity (08321) Billed Units: 2 units Training AND education provided in: Bed mobility, Benefits of in-hospital mobility, Discharge planning, Equipme (more content not included)... Normal [facility] Vancomycinon 12-24-2020 Vancomycin 24.5 ug/mL High 10.0-20.0 [facility] Comment on above: Result Comment: Refe rence ranges and high/low indicator flags are provided as general guidelines only. The treating physician must determine appropriate target levels/dosing based on the specific clinical situation. CBCon 12-23-2020 Absolute nRBC <0.01 Normal <0.01 [facility] Erythrocyte distribution width (RBC) [Ratio] 14.6 % Normal 11.5-15.0 [facility] Hematocrit (Bld) [Volume fraction] 35.9 % Low 36.0-46.0 [facility] Hemoglobin (Bld) [Mass/Vol] 11.7 g/dL Normal 11.5-15.5 [facility] MCH 32.2 pG Normal 26.0-34.0 [facility] MCHC (RBC) [Mass/Vol] 32.6 g/dL Normal 30.5-36.0 [facility] MCV (RBC) [Entitic vol] 98.9 fL Normal 80.0-100.0 H [facility] Platelet mean volume (Bld) [Entitic vol] 10.0 fL Normal 9.0-12.7 [facility] Platelets (Bld) [#/Vol] 213 10*3/uL Normal 150-400 [facility] RBC (Bld) [#/Vol] 3.63 10*6/uL Low 3.90-5.20 [facility] WBC (Bld) [#/Vol] 5.70 10*3/uL Normal 3.70-11.00 [facility] NURSING PROGon 12-23-2020 NURSING PROG HNO ID: [id number] Author: Toshia Frye RN Service: Nursing Author Type: Registered Nurse Type: Nursing Progress Note Filed: 12/24/2020 5:51 AM Note Text: Nursing Progress Note Patient Name: Charlie Nguyen Patient Location: [place] [address]/[facility]- 1900- Bedside report received, assumed care of [...] importance of staggering medications that can cause BELLMAN DRIVER depression. Pt states she is able to take them together at the intermediate. Educated regarding hospital policy due to safety reasons. Pt remains upset. Not receptive to education at this time. 0300- prior assessment remains unchanged, will continue to monitor. This note was completed by: Toshia Frye [facility] NURSING PROG HNO ID: [id number] Author: Terry Moreau RN Service: Nursing Author Type: Registered Nurse Type: Nursing Progress Note Filed: 12/23/2020 12:14 PM Note Text: Nursing Progress Note ? Patient Name: Charlie Nguyen Patient Location: [facility] Daily note: 0700 Assumed care of patient. [...] was completed by: Terry Davidson RN BSN [facility] NURSING PROG HNO ID: [id number] Author: Eduardo Ley RN Service: Nursing Author Type: Registered Nurse Type: Nursing Progress Note Filed: 12/23/2020 2:54 AM Note Text: Nursing Progress Note Patient Name: Charlie Nguyen Patient Location: [place] [address]/[facility] Daily Note: 1900 Assumed Care of [...] was completed by: Eduardo Ley Normal [facility] Renal Function Panelon 12-23 Albumin [Mass/Vol] 3.1 g/dL Low 3.9-4.9 [facility] Anion gap [Moles/Vol] 7 mmol/L Low 9-18 [facility] Calcium [Mass/Vol] 8.1 mg/dL Low 8.5-10.2 [facility] Chloride [Moles/Vol] 100 mmol/L Normal 97-105 [facility] CO2 [Moles/Vol] 33 mmol/L Normal 22-33 [facility] Creatinine [Mass/Vol] 0.80 mg/dL Normal 0.58-0.96 [facility] eGFR- Amer. >60 Normal [facility] eGFR-All Other Races >60 Normal [facility] Comment on above: Result Comment: eGFR [...] GFR. Glucose [Mass/Vol] 83 mg/dL Normal 74-99 [facility] Phosphate [Mass/Vol] 5.2 mg/dL High 2.7-4.8 [facility] Potassium [Moles/Vol] 4.8 mmol/L Normal 3.7-5.1 [facility] Sodium [Moles/Vol] 140 mmol/L Normal 136-144 [facility] Urea nitrogen [Mass/Vol] 7 mg/dL Normal 7-21 [facility] THERAPY NTon 12-23-2020 THERAPY NT HNO ID: [id number] Author: Steffen Jeff PTA Service: Physical Therapy Author Type: Mud Analysis Well Logging Operator Type: Therapy (PT/OT/Speech/Resp) Filed: 12/23/2020 1:48 PM Note Text: Attestation signed by Deja Strickland, PT at 12/23/2020 1:52 PM I reviewed and agree with the assessment as documented above. SIGNATURE: Deja Strickland, PT DATE: December 23, 2020 TIME: 1:52 PM PHYSICAL THERAPY MISSED VISIT SERVICE DATE: 12/23/2020 SERVICE TIME: 1355 to 1355 ROOM: [address] Attempted Treatment. Patient not seen due to (pt. reports that she needs to get cleaned up after having a BM. PCNA notified. Will attempt to return this PM as able.). SIGNATURE: Steffen Jeff PTA PATIENT NAME: Charlie Nguyen DATE: December 23, 2020 TIME: 1:48 PM Normal [facility] CBCon 12-22-2020 Absolute nRBC <0.01 Normal <0.01 [facility] Erythrocyte distribution width (RBC) [Ratio] 15.0 % Normal 11.5-15.0 [facility] Hematocrit (Bld) [Volume fraction] 39.5 % Normal 36.0-46.0 [facility] Hemoglobin (Bld) [Mass/Vol] 12.1 g/dL Normal 11.5-15.5 [facility] MCH 31.0 pG Normal 26.0-34.0 [facility] MCHC (RBC) [Mass/Vol] 30.6 g/dL Normal 30.5-36.0 [facility] MCV (RBC) [Entitic vol] 101.3 fL High 80.0-100.0 H [facility] Platelet mean volume (Bld) [Entitic vol] 10.3 fL Normal 9.0-12.7 [facility] Platelets (Bld) [#/Vol] 217 10*3/uL Normal 150-400 [facility] RBC (Bld) [#/Vol] 3.90 10*6/uL Normal 3.90-5.20 [facility] WBC (Bld) [#/Vol] 7.69 10*3/uL Normal 3.70-11.00 [facility] CONSULT PROGon 12-22-2020 CONSULT PROG HNO ID: [id number] Author: Luli Richards MD Service: Infectious Disease [...] 22, 2020 TIME: 10:28 AM Normal [facility] NURSING PROGon 12-22-2020 NURSING PROG HNO ID: [id number] Author: Terry Moreau RN Service: Nursing Author Type: Registered Nurse Type: Nursing Progress Note Filed: 12/22/2020 3:56 PM Note Text: Nursing Progress Note ? Patient Name: Charlie Nguyen Patient Location: [facility]/-[facility]-P Daily note: 0700 Assumed care of patient. [...] This note was completed by: Terry Davidson EXECUTIVE PRODUCER PROMOS [facility] NURSING PROG HNO ID: [id number] Author: Sanjay Isaac RN Service: Nursing Author Type: Registered Nurse Type: Nursing Progress Note Filed: 12/22/2020 5:47 AM Note Text: Nursing Progress Note Patient Name: Charlie Nguyen Patient [facility]P Daily Note: 1900 Assumed care of pt. [...] This note was completed by: Sanjay Isaac [facility] Renal Function Panelon 12-22 Albumin [Mass/Vol] 3.0 g/dL Low 3.9-4.9 [facility] Anion gap [Moles/Vol] 8 mmol/L Low 9-18 [facility] Calcium [Mass/Vol] 8.5 mg/dL Normal 8.5-10.2 [facility] Chloride [Moles/Vol] 99 mmol/L Normal 97-105 [facility] CO2 [Moles/Vol] 31 mmol/L Normal 22-33 [facility] Creatinine [Mass/Vol] 0.81 mg/dL Normal 0.58-0.96 [facility] eGFR- Amer. >60 Normal [facility] eGFR-All Other Races >60 Normal [facility] Comment on above: Result Comment: eGFR [...] GFR. Glucose [Mass/Vol] 79 mg/dL Normal 74-99 [facility] Phosphate [Mass/Vol] 5.1 mg/dL High 2.7-4.8 [facility] Potassium [Moles/Vol] 4.9 mmol/L Normal 3.7-5.1 [facility] Sodium [Moles/Vol] 138 mmol/L Normal 136-144 [facility] Urea nitrogen [Mass/Vol] 7 mg/dL Normal 7-21 [facility] Vancomycinon 12-22-2020 Vancomycin 11.7 ug/mL Normal 10.0-20.0 [facility] Comment on above: Result Comment: Refe rence ranges and high/low indicator flags are provided as general guidelines only. The treating physician must determine appropriate target levels/dosing based on the specific clinical situation. CBCon 12-21-2020 Absolute nRBC <0.01 Normal <0.01 [facility] Erythrocyte distribution width (RBC) [Ratio] 14.6 % Normal 11.5-15.0 [facility] Hematocrit (Bld) [Volume fraction] 33.9 % Low 36.0-46.0 [facility] Hemoglobin (Bld) [Mass/Vol] 10.6 g/dL Low 11.5-15.5 [facility] MCH 30.6 pG Normal 26.0-34.0 [facility] MCHC (RBC) [Mass/Vol] 31.3 g/dL Normal 30.5-36.0 [facility] MCV (RBC) [Entitic vol] 98.0 fL Normal 80.0-100.0 H [facility] Platelet mean volume (Bld) [Entitic vol] 10.6 fL Normal 9.0-12.7 [facility] Platelets (Bld) [#/Vol] 202 10*3/uL Normal 150-400 [facility] RBC (Bld) [#/Vol] 3.46 10*6/uL Low 3.90-5.20 [facility] WBC (Bld) [#/Vol] 9.04 10*3/uL Normal 3.70-11.00 [facility] CONSULT PROGon 12-21-2020 CONSULT PROG HNO ID: [id number] Author: Sybil Randhawa RP Service: Pharmacy Author Type: Pharmacist Type: Consult [...] Please contact pharmacy if questions. Sybil Randhawa [facility] [phone] Normal [facility] NURSING PROGon 12-21-2020 NURSING PROG HNO ID: [id number] Author: Kimberly Headley RN Service: Nursing Author Type: Registered Nurse Type: Nursing Progress Note Filed: 12/21/2020 3:23 PM Note Text: Nursing Progress Note Patient Name: Charlie Nguyen Patient Location: [facility]P Daily Note: 0700 Assumed patient care, bedside [...] This note was completed by: Kimberly Headley [facility] NURSING PROG HNO ID: [id number] Author: Eduardo Ley RN Service: Nursing Author Type: Registered Nurse Type: Nursing Progress Note Filed: 12/20/2020 11:28 PM Note Text: Nursing Progress Note Patient Name: Charlie Nguyen Patient Location: [place] [address]/[facility] Daily Note: 1900 Assumed Care of patient. Received bedside report from off going nurse. Patient's bed alarm is on and functioning. Will continue to monitor. 2108 patient is aANDo x3, patient is assessed as charted and medicated per JUL This note was completed by: Eduardo Ley [facility] PT EDon 12-21-2020 PT ED HNO ID: [id number] Author: Chaitanya Champagne RN Service: PICC Team Author Type: Registered Nurse Type: Patient Education Filed: 12/21/2020 12:46 PM Note Text: PATIENT EDUCATION TOPIC: PROCEDURE / SURGERY: Procedure/Surgery: PICC INSERTION PATIENT NAME: Charlie Nguyen PATIENT LOCATION: [place] [address] [address]P READINESS TO LEARN COGNITIVE ABILITY: Alert and [...] (RECOMMENDATION): None Electronically Signed By: Chaitanya Champagne [facility] Renal Function Panelon 12-21 Albumin [Mass/Vol] 3.0 g/dL Low 3.9-4.9 [facility] Anion gap [Moles/Vol] 8 mmol/L Low 9-18 [facility] Calcium [Mass/Vol] 8.7 mg/dL Normal 8.5-10.2 [facility] Chloride [Moles/Vol] 102 mmol/L Normal 97-105 [facility] CO2 [Moles/Vol] 28 mmol/L Normal 22-33 [facility] Creatinine [Mass/Vol] 0.64 mg/dL Normal 0.58-0.96 [facility] eGFR- Amer. >60 [facility] eGFR-All Other Races >60 Normal [facility] Comment on above: Result Comment: eGFR [...] GFR. Glucose [Mass/Vol] 99 mg/dL Normal 74-99 [facility] Phosphate [Mass/Vol] 3.0 mg/dL Normal 2.7-4.8 [facility] Potassium [Moles/Vol] 4.1 mmol/L Normal 3.7-5.1 [facility] Sodium [Moles/Vol] 138 mmol/L Normal 136-144 [facility] Urea nitrogen [Mass/Vol] 7 mg/dL Normal 7-21 [facility] THERAPY NTon 12-21-2020 THERAPY NT HNO ID: [id number] Author: Deaj Strickland PT Service: Physical Therapy Author Type: Physical Therapist Type: Therapy (PT/OT/Speech/Resp) Filed: 12/21/2020 2:10 PM Note Text: Physical Therapy Evaluation SERVICE DATE: 12/21/2020 SERVICE TIME: 1355 to 1355 ROOM: [address] PHYSICAL THERAPY MISSED VISIT SERVICE DATE: 12/21/2020 SERVICE TIME: 1355 to 1355 ROOM: [address] Attempted Evaluation. Patient not seen due to Declined. Patient requesting to rest as she reports she had a busy morning. Will defer PT session today. SIGNATURE: Deja Strickland PT PATIENT NAME: Charlie Nguyen DATE: December 21, 2020 TIME: 2:09 PM Normal [facility] THERAPY NT HNO ID: [id number] Author: Toshia Montano OT/L Service: Occupational Therapy Author Type: Occupational Therapist Type: Therapy (PT/OT/Speech/Resp) Filed: 12/21/2020 11:31 AM Note Text: OCCUPATIONAL THERAPY MISSED VISIT SERVICE DATE: 12/21/2020 SERVICE TIME: 1131 to 1131 ROOM: [address] Attempted Treatment. Patient not seen due to Test/Procedure. SIGNATURE: LINDA Merritt PATIENT NAME: Charlie Nguyen DATE: December 21, 2020 TIME: 11:31 AM [facility] Vancomycinon 12-21-2020 Vancomycin 23.3 ug/mL High 10.0-20.0 [facility] Comment on above: Result Comment: Refe rence ranges and high/low indicator flags are provided as general guidelines only. The treating physician must determine appropriate target levels/dosing based on the specific clinical situation. CASE MGT INEYAD Giordano 2020 CASE MGT INEYAD HERNÁNDEZ HNO ID: [id number] Author: Denise Gale RN Service: Case Management Author Type: Registered Nurse Type: Care Mgt Initial Assessment Filed: 12/20/2020 11:01 AM Note Text: CARE MANAGEMENT: ASSESSMENT AND DISCHARGE PLAN SERVICE DATE: December 20, 2020 SERVICE TIME: 10:57 AM PRIMARY CARE PHYSICIAN: Moreno Oates MD ADMISSION STATUS: Inpatient Needs Prior to Discharge: To Be Determined;Discharge Transportation;Discha rge Prescriptions MEDICAL: [place] Patient/Representativ e Stated Goals: To have reduction in symptoms;To have reduction in pain Health Insurance: Medicaid Health Issues Impacting Discharge Plan: None Last Discharge Date: 11/11/19 Is this Within the Past 30 days? Last discharge within 30 days: No Advance Directive: Current Advance Directive: Health Care Power of Jewelry Estimator In Chart: Yes Up To Date and [...] Receive Any Community Services or Home Care?: [facility] Has the Patient Been in a [facility] Facility in the Past 30 days?: Yes SOCIAL: Living Arrangements: Nursing Facility Facility Information: [facility] Financial Resources: Disabled Primary Contact: Extended Emergency [...] Completely I feel financially burdened by my [id number] expenses for my prescription medication:: 0 - Disagree Completely Risk Score: 0 Patient is categorized as: Low risk < 2 Are you interested in bedside delivery of your medications? No Is Patient Psychosocially Complex?: No ASSESSMENT AND PLAN: Medical Needs: Medical Needs: None Psychosocial Needs: Psychosocial Needs: None FREEDOM OF CHOICE EXPLAINED: [place] of Choice Given: Yes Level of Care Discussed: [facility] Facility Financial Disclosure Provided: Yes Provider List: Rehab Facility (Patient is LTC at [facility]) POTENTIAL TRANSITION PLANS [facility] Facility/Intermediate Care Facility Met with patient at bedside. She was transferred to us from [facility] ED for a joint infection. 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 Return referral sent. Therapy scheduled to evaluate patient today. Will await return response from [facility] for any barriers to return. Cultures pending obtained from OR. Case management will continue to follow and assist with discharge planning needs. SIGNATURE: Denise Gale RN PATIENT NAME: Charlie Nguyen DATE: December 20, 2020 TIME: 10:57 AM PAGER/CONTACT #: [phone] [facility] CONSULTon 12-20-2020 CONSULT HNO ID: [id number] Author: Sanjana Tarango MD Service: Infectious Disease [...] fevers or chills. [place]centesis [place] [address] nucleated cells. She went to OR for [...] with meals., Disp: (more content not included)... [facility] NURSING PROGon 12-20-2020 NURSING PROG HNO ID: [id number] Author: Sandra Gonzales RN Service: ? Author Type: Registered Nurse Type: Nursing Progress Note Filed: 12/20/2020 6:48 PM Note Text: Nursing Progress Note Patient Name: Charlie Nguyen Patient Location: /-P Daily Note: Bedside report received, assumed care [...] This note was completed by: Sandra Gonzales [facility] NURSING PROG HNO ID: [id number] Author: Eduardo Ley RN Service: Nursing Author Type: Registered Nurse Type: Nursing Progress Note Filed: 12/20/2020 1:20 AM Note Text: Nursing Progress Note Patient Name: Charlie Nguyen Patient Location: [facility]P Daily Note: 2000 Assumed Care of patient. Received report from PACU Patient's bed alarm is on and functioning. Patient oriented to call system and room. 2103 patient is assessed as charted and medicate per MAR This note was completed by: Eduardo Ley [facility] THERAPY NTon 12-20-2020 THERAPY NT HNO ID: [id number] Author: Arelis Castanon PT Service: Physical Therapy Author Type: Physical Therapist Type: Therapy (PT/OT/Speech/Resp) Filed: 12/20/2020 3:10 PM Note Text: Physical Therapy Evaluation SERVICE DATE: 12/20/2020 SERVICE TIME: 1040 to 1110 ROOM: [facility]P Recommended Discharge Disposition Comments: rec trial SNF [...] Patient Lives With: Facility Care (LTC at [facility]) Assistance Available: 24 Hour Entry To Home: No Stairs Tub/Shower Type: walk in shower Laundry: facility does laundry Equipment Owned: Wheelchair (reporting has own WC; manual) Prior Functional Level: Required Assistance Assistance Required With: Cleaning;Laundry;Safe ty;Self Care;Shopping;Transpo rtation;Medication Management;Meals Prior Functional Level Comments: pt questionable historian; reporting from [facility]; reporting pivot transfers only to WC, [...] Weakness (generalized) Interventions Provided: Evaluation;Therapeuti c Activity (10540) $ Evaluation-Low (90200) Billed Units: 1 unit Therapeutic Activity (89527) Treatment Minutes: 15 $ Therapeutic Activity (65234) Billed Units: 1 unit Training AND education provided in: Bed mobility, Benefits of in-hospital mobility, Discharge planning, Equipment, Positioning, Precautions/restricti ons, Role of Physical Therapy, Transfers The following therapeutic skills were used: Activity dosing, Cues for sequencing/proper technique for activity, Cuing tactile, Cuing verbal, Cuing visual, Physical assist Total Timed Code Treatment Minutes: 15 Total Treatment Time ( (more content not included)... [facility] THERAPY NT HNO ID: [id number] Author: KEV Colunga/Catrachito Service: Occupational Therapy Author Type: Occupational Therapist Type: Therapy (PT/OT/Speech/Resp) Filed: 12/20/2020 12:40 PM Note Text: Occupational Therapy Evaluation SERVICE DATE: 12/20/2020 SERVICE TIME: 0900 to 0930 ROOM: [address] Recommended Discharge Disposition: Subacute/SNF Recommended Discharge [...] Home Environment Patient Lives With: Facility Care ([facility] (LT ?)) Assistance Available: 24 Hour Entry To Home: No Stairs Tub/Shower Type: walk in shower Laundry: facility does laundry Equipment Owned: Cane;Commode-Bedside; Wheeled Walker;Wheelchair Prior Functional Level: Required Assistance Assistance Required With: Cleaning;Laundry;Meal s;Safety;Self Care;Shopping;Transpo rtation Prior Functional Level Comments: Pt is a questionable historian; Pt has been at [facility] since 10/2019 per chart; using w/c for [...] with: Minimal Ass (more content not included)... [facility] AFB Cult and Stainon 021 AFB Cult and Stain Sp. Request/Comment: - Specimen received in sterile container. Smear Result - No acid fast bacilli seen by fluorochrome stain Culture Result - No Acid Fast Bacilli isolated after 42 days [facility] Comment on above: Performed By: #### A FC ####[facility] [place], [place] [phone] ANES POSTPROC EVALon 021 ANES POSTPROC EVAL HNO ID: [id number] Author: Angela Womack MD Service: Anesthesiology Author [...] ?C (97.9 ?F) 12/19/20 1823 Pulse 50 12/19/201943 Resp 14 12/19/201943 SpO2 [...] December 19, 2020 TIME: 7:47 PM CSN: [id number] [facility] ANES PRE-OPon 12-19-2020 ANES PRE-OP HNO ID: [id number] Author: Sulaiman Castro MD Service: Anesthesiology Author [...] acting, (more content not included)... Normal [facility] APTTon 12-19-2020 aPTT Coag (Bld) [Time] 33.3 s High 23.0-32.4 [facility] Comment on above: Result Comment: Unfr [...] laboratory APTT reagent in use throughout the [facility]. Anaerobe Cultureon 1 Anaerobe Culture Sp. Request/Comment: - Specimen received in sterile container. Culture Result - Negative for anaerobes. No Cutibacterium (Propionibacterium) acnes isolated. 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 Item Serial No. Csr Retail Lot No. LRB No. Used Action BUSHING FEMORAL MODULAR ROTATE HINGE KNEE - [id number] Joint - Knee BUSHING FEMORAL MODULAR ROTATE HINGE KNEE [facility] [employer] [id number] Right 1 Implanted BUSHING FEMORAL MODULAR ROTATE HINGE KNEE - [id number] Joint - Knee BUSHING FEMORAL MODULAR ROTATE HINGE KNEE [facility] [employer] [id number] Right 1 Implanted COMPONENT XS SMALL MEDIUM TIBIAL ROTATE HINGE KNEE - [id number] Joint - Knee COMPONENT XS SMALL MEDIUM TIBIAL ROTATE HINGE KNEE [facility] [id number] Right 1 Implanted INSERT GMRS [id number] S1 S2 TIBIAL MODULAR ROTATE HINGE PROXIMAL - [id number] Joint - Knee INSERT GMRS [id number] S1 S2 TIBIAL MODULAR ROTATE HINGE PROXIMAL [facility] [id number] Right 1 Implanted SLEEVE TIBIAL MODULAR ROTATE HINGE KNEE - [id number] Joint - Knee SLEEVE TIBIAL MODULAR ROTATE HINGE KNEE [facility] Right 1 Implanted INSERT GMRS NEUTRAL BUMPER MODULAR ROTATE HINGE KNEE PROXIMAL - [id number] Joint - Knee INSERT GMRS NEUTRAL BUMPER MODULAR ROTATE HINGE KNEE PROXIMAL [facility] Right 1 Implanted AXLE FEMORAL MODULAR ROTATE HINGE KNEE - [id number] Joint - Knee AXLE FEMORAL MODULAR ROTATE HINGE KNEE [facility] Right 1 Implanted Estimated Blood Loss: [...] December 19, 2020 6:20 PM Normal [facility] Basic Metabolic Panlon 12-19 Anion gap [Moles/Vol] 9 mmol/L Normal 9-18 [facility] Calcium [Mass/Vol] 9.0 mg/dL Normal 8.5-10.2 [facility] Chloride [Moles/Vol] 102 mmol/L Normal 97-105 [facility] CO2 [Moles/Vol] 26 mmol/L Normal 22-33 [facility] Creatinine [Mass/Vol] 0.81 mg/dL Normal 0.58-0.96 [facility] eGFR- Amer. >60 Normal [facility] eGFR-All Other Races >60 Normal [facility] Comment on above: Result Comment: eGFR [...] GFR. Glucose [Mass/Vol] 73 mg/dL Low 74-99 [facility] Potassium [Moles/Vol] 3.8 mmol/L Normal 3.7-5.1 [facility] Sodium [Moles/Vol] 137 mmol/L Normal 136-144 [facility] Urea nitrogen [Mass/Vol] 15 mg/dL Normal 7-21 [facility] Body Fluid Cult/Stnon 2020 Body Fluid Cult/Stn Sp. Request/Comment: - Specimen received in sterile container. Smear Result - No organisms seen Many Polymorphonuclear leukocytes Culture Result - No growth 14 days Normal [facility] Comment on above: Performed By: #### B FCUL ####[facility] [address] [place], [place] [address] [phone] Body Fluid Cult/Stn Sp. Request/Comment: - Specimen received in sterile container. Smear Result - No organisms seen Many Polymorphonuclear leukocytes Culture Result - No growth 5 days Normal [facility] Comment on above: Performed By: #### B FCUL ####[address] [phone] CASE MANAGEMon 12-19-2020 CASE MANAGEM HNO ID: [id number] Author: Jossy Warner RN Service: Case Management Author Type: Registered Nurse Type: Care Mgt Progress Note Filed: 12/19/2020 1:48 PM Note Text: CARE MANAGEMENT PROGRESS NOTE SERVICE DATE: 12/19/2020 SERVICE TIME: 1:45 PM LOS: 0 days Patient screened and discharge needs evaluated. Matrix Plater to follow for discharge planning. SIGNATURE: Jossy Warner RN PATIENT NAME: Charlie Nguyen DATE: December 19, 2020 TIME: 1:39 PM PAGER/CONTACT #: [phone] Normal [facility] CBCon 12-19-2020 Absolute nRBC <0.01 Normal <0.01 [facility] Erythrocyte distribution width (RBC) [Ratio] 15.2 % High 11.5-15.0 [facility] Hematocrit (Bld) [Volume fraction] 40.6 % Normal 36.0-46.0 [facility] Hemoglobin (Bld) [Mass/Vol] 12.9 g/dL Normal 11.5-15.5 [facility] MCH 31.8 pG Normal 26.0-34.0 [facility] MCHC (RBC) [Mass/Vol] 31.8 g/dL Normal 30.5-36.0 [facility] MCV (RBC) [Entitic vol] 100.0 fL Normal 80.0-100.0 H [facility] Platelet mean volume (Bld) [Entitic vol] 10.4 fL Normal 9.0-12.7 [facility] Platelets (Bld) [#/Vol] 168 10*3/uL Normal 150-400 [facility] RBC (Bld) [#/Vol] 4.06 10*6/uL Normal 3.90-5.20 [facility] WBC (Bld) [#/Vol] 10.80 10*3/uL Normal 3.70-11.00 [facility] CONSULTon 12-19-2020 CONSULT HNO ID: [id number] Author: Ruddy Parrish MD Service: Orthopaedic Surgery [...] Applicator by RECTA (more content not included)... [facility] CONSULT PROGon 12-19-2020 CONSULT PROG HNO ID: [id number] Author: Royer Winslow RPh Service: Pharmacy Author [...] have any questions[place] [phone]. Age: [age] year old Allergies: ALLERGIES Allergen Reactions - Nsaids (Non-Steroid* GI Upset - Gabapentin GI Upset - Macrobid [Nitrofura* Hives - Tramadol Contraindication-Medi mike Surgical Drug interaction with amitriptyline - told not to take due to increased seizure risk - [place] [Hydrocodone-* GI Upset Didn't do anything for [...] 0856 24.4 (H) 11/09/2019 0700 13.3 Royer Winslow [facility] Normal [facility] Coronavirus 2019on SARS-CoV-2 (COVID-19) RNA TANVIR+probe Ql (Unsp spec) UPPER RESPIRATORY TRACT SWAB Normal [facility] Comment on above: Performed By: #### C OVID ####[facility] [address] [place], [place] [phone] SARS-CoV-2 (COVID-19) RNA TANVIR+probe Ql (Unsp spec) Negative for COVID19 (SARS CoV2) by RT-PCR or equivalent method. Normal Negative for COVID19 (SARS CoV2) by RT-PCR or equivalent method. [facility] Comment on above: Result Comment: This test was developed and its performance characteristics determined by [facility]'s [facility] [place]. This test has been authorized by FDA under an Emergency Use Authorization (EUA). This test has been validated in accordance with the FDA's Guidance Document "Policy for Diagnostics Testing in Laboratories Certified to Perform High Complexity Testing under CLIA prior to Emergency use Authorization for Coronavirus Disease 2019 during the Public Health Emergency" issued on July 30, 2019. Test performed by [facility], [facility] [place], [address] [place], [place] [address]. Performed By: #### C OVID ####[facility] [address] [place], [place] [phone] ED NOTEon 12-19-2020 ED NOTE HNO ID: [id number] Author: ADILENE Guardado Service: ? Author Type: Patient Care Ore Trimmer Type: ED Notes Filed: 12/19/2020 10:02 AM Note Text: Patient states that she is frustrated with care and is in 9/10 pain. Nurse is notified and aware. At this time an external female catheter has also been placed for adequate voiding. Normal [facility] ED NOTE HNO ID: [id number] Author: Joselin Jeff RN Service: ? Author Type: Registered Nurse Type: ED Notes Filed: 12/19/2020 7:04 AM Note Text: Cordell obtained and walked to lab [facility] ED NOTE HNO ID: [id number] Author: Joselin Jeff RN Service: ? Author Type: Registered Nurse Type: ED Notes Filed: 12/19/2020 3:27 AM Note Text: [facility] ED NOTE HNO ID: [id number] Author: Joselin Jeff RN Service: ? Author Type: Registered Nurse Type: ED Notes Filed: 12/19/2020 2:26 AM Note Text: Sent from [facility] ER for possible right knee infection. Right knee replaced recently. Patient c/o 10/10 pain. Placed on O2 by squad for pulse ox at 90% on room air upon arrival. Placed on 3L here for pulse ox at 90% on 2 liters NC. [facility] ED PROV NOTEon 12-19-2020 ED PROV NOTE HNO ID: [id number] Author: Russell Holley DO Service: ? Author Type: Physician Type: ED [...] had prior knee replacement surgery here at [place]. He was sent for rule out septic [...] take due to increased seizure risk - [place] [Hydrocodone-* GI Upset Didn't do anything for [...] SIGNATURE: DO Russell Fernandez DO 12/19/20 0536 [facility] Fungal Cult / Smearon 2020 Fungal Cult / Smear Sp. Request/Comment: - Specimen received in sterile container. Smear Result - No fungus seen. Culture Result - No Fungus isolated after 30 days [facility] Comment on above: Performed By: #### F CUL ####[facility] [place], [place] [phone] HISTORY PHYSICALon HISTORY PHYSICAL HNO ID: [id number] Author: Angelia Pitt APRN.CNP Service: Hospital Medicine [...] BP allows SIGNATURE: Rufino Torres MD PAGER: [phone] ( please page [phone] between 5 pm and 7 am) DATE of SERVICE: December 19, 2020 TIME of SERVICE: 11:24 AM DEPARTMENT OF HOSPITAL MEDICINE HISTORY AND PHYSICAL EXAM SERVICE DATE: 12/19/2020 SERVICE TIME: 10:09 AM w Primary Care Physician: Moreno Oates MD NIGHT AND WEEKEND COVERAGE: [facility] COVERAGE: Patient admitted to hospital medicine From 0700 - 1630, please contact pager [phone] for patient issues. From 1630 - 0700, please contact the Night Hospitalist on pager [phone] for patient issues. Subjective CHIEF COMPLAINT: Right [...] take due to increased seizure risk - [place] [Hydrocodone-* GI Upset Didn't do anything for [...] Valium daily a (more content not included)... [facility] NURSING PROGon 12-19-2020 NURSING PROG HNO ID: [id number] Author: Senait Girard RN Service: Nursing Author Type: Registered Nurse Type: Nursing Progress Note Filed: 12/19/2020 1:42 PM Note Text: Right Femoral Nerve Block SS Dr. Ky YEE Patient verbalized her understanding of the nerve block procedure [facility] NURSING PROG HNO ID: [id number] Author: Terry Moreau RN Service: Nursing Author Type: Registered Nurse Type: Nursing Progress Note Filed: 12/19/2020 7:33 PM Note Text: Nursing Progress Note PATIENT NAME: Charlie Nguyen PATIENT LOCATION: [place] [address] [address] Daily note: 1315 Patient arrived to [facility] in stable condition. Oriented to room and call light system. Updated on pain management board. Skin assessment completed. Report given to Preop Nurse by phone for OR. 1320 UA/UC sent to lab. [phone] Patient off unit in surgery. Report given to on coming night JENN magana. This note was completed by: Terry Davidson RN BSN [facility] OPERATIVE NOon 12-19-2020 OPERATIVE NO HNO ID: [id number] Author: Ruddy Parrish MD Service: Orthopaedic Surgery Author Type: Physician Type: Operative Report Filed: 12/20/2020 11:35 AM Note Text: OPERATIVE/PROCEDURE REPORT LOG ID: [id number] SURGERY/PROCEDURE DATE: 12/19/2020 INCISION/PROCEDURE START TIME: 4:26 PM INCISION CLOSE/PROCEDURE END TIME: 6:06 PM SURGEON(S)/PROCEDURAL IST(S) AND P 3 ARMAMENT/ORDNANCE IMA TECHNICIAN(S): Surgeon(s) and Role: * Ruddy Parrish MD - Primary * Trish Moran DO - Resident - Assisting * Chris Finn MD - Fellow No Additional Staff Surgeon: Ruddy Parrish MD Procedure(s): Right knee arthrotomy with irrigation and debridement (with polyethylene exchange)- CPT 61121-27 A 22 modifier is added to the [...] the assistants with me immediately available. IMPLANTS: [place] [facility] 13 mm polyethylene and hinge components [...] 20, 2020 TIME: 11:35 AM Normal [facility] Protimeon 12-19-2020 PT INR 1.0 Normal 0.9-1.3 [facility] Comment on above: Result Comment: Selina min K Antagonist (VKA) Therapeutic Range: INR 2 to 3 (Target INR of 2.5) Note: For patients treated with VKA drugs, such as warfarin, the [employer] 2012 Guideline recommends [...] 2.5 to 3.5 (target INR of 3). Gujonathantt GH, et al. Chest 2012, 141:7S-47S Heather RA, et al. JAC 2017, 70: 252-289 PT Sec 10.9 sec Normal 9.7-13.0 [facility] Routine Analysis (Synovial F ld)on 12-19-2020 Clarity (U) Cloudy Critically abnormal Clear [facility] Comment on above: Performed By: #### R TSYNF ####[place] [address] [place], [place] [phone] Color (U) Julianna Critically abnormal Yellow [facility] Comment on above: Performed By: #### R TSYNF ####[place] [address] [place], [place] [phone] Crystals LM Nom (Urine sed) None seen Normal None seen [facility] Comment on above: Performed By: #### R TSYNF ####[place] [address] [place], [place] [phone] Lymphocytes/100 WBC (Bld) 3 % Normal [facility] Comment on above: Performed By: #### R TSYNF ####[place] [address] [place], [place] [phone] Monocytes/100 WBC (Bld) 5 % Normal [facility] Comment on above: Performed By: #### R TSYNF ####[place] [address] [place] [place], [place] [phone] Neutrophils/100 WBC (Bld) 92 % High 0-25 [facility] Comment on above: Performed By: #### R TSYNF ####[place] [address] [place], [place] [phone] Path Interp Crystals SEE COMMENT Normal [facility] Comment on above: Result Comment: Revi ewed by Kvng Harris M.D., Ph.D ([id number]) Performed By: #### R TSYNF ####[place] [id number] [place] [phone] RBC (Bld) [#/Vol] 0.009 10*6/uL High <2000 [facility] Comment on above: Performed By: #### R JLUIS ####[place] [address] [place] [place] [phone] Site Right Knee Normal [facility] Comment on above: Performed By: #### R JLUIS ####[place] [phone] Slide [id number] Normal [facility] Comment on above: Performed By: #### R JLUIS ####[place] [phone] Spec Site, Crystal Right Knee Normal [facility] Comment on above: Performed By: #### Farideh BAZZI ####[place] [phone] Suprntnt Clarity Clear Normal Clear [facility] Comment on above: Performed By: #### R YELITZAF ####[place] [phone] Suprntnt Color Yellow Critically abnormal Colorless [facility] Comment on above: Performed By: #### R YELITZAF ####[place] [phone] SYNOVIAL COMMENT SEE COMMENT Normal [facility] Comment on above: Result Comment: PREL IMINARY REPORT No diagnostic crystals seen. SEE FINAL SYN FLD PATH REVIEW No malignant cells, no microorganisms Performed By: #### R YELITZAF ####[place] [phone] Synovial Path Interp SEE COMMENT Normal [facility] Comment on above: Result Comment: Revi ewed by Kvng Harris M.D., Ph.D ([id number]) Performed By: #### Farideh BAZZI ####[facility] [address] [place], [place] [phone] [place] [address] /uL High 0-200 [facility] Comment on above: Performed By: #### Farideh TORREF ####[facility] [address] [place], [place] [phone] SURGICAL PATHOLOGYon 021 SURGICAL PATHOLOGY Specimen originated from [facility] Specimen #: [id number] Submitting Physician: MARICEL LEVY FINAL DIAGNOSIS Right [...] device is inscribed "13 mm, XSML/SML/S1/S2, 6481-3-213, NQH244". The articular surface is smooth and unremarkable. Also identified is a chavez-metallic stemmed tibial tray component measuring 7.5 x 5.6 x 3.7 cm. This device is inscribed [id number], 6481-2-100, XSML-XLG". The outer surface is unremarkable. Also identified is a chavez - metallic surgical annemarie measuring 6.0 cm in length x 1.0 cm in diameter. This device is inscribed [id number], 6481-2-120". The outer surface is unremarkable. Also identified are 4 chavez polyethylene, irregular components, measuring 2.1 to 4.1 cm in greatest dimension, and 6.0 x 4.0 x 2.2 cm in aggregate. The largest device bears no inscription. The second largest device is inscribed "[id number], neutral". The smaller devices are inscribed JL609, 6481-2-110" and "JM913, 6481-2-110". No tissue is present. No sections are submitted. The specimen is reviewed with Dr. Wheatley. ILDA/priti 12/20/2020 HE PATIENT Gross examination performed at [facility], [address] [place] [address] Date of Report: 12/21/2020 Date of Procedure: 12/19/2020 Date of Receipt: 12/20/2020 Submitted by: MARICEL LEVY Additional Physician(s): RUFINO Gong NAYLOR Location: ORTHO/VASCULAR [place] [address]. CLIA Number: [id number] Normal [facility] Tissue Cult / Stainon 2020 Tissue Cult / Stain Sp. Request/Comment: - Specimen received in sterile container. Smear Result - No organisms seen No Polymorphonuclear Leukocytes Culture Result - No growth 14 days [facility] Comment on above: Performed By: #### T ISCUL ####[facility] [address] [place] [place] [id number] [place], [place] [phone] Tissue Cult / Stain Sp. Request/Comment: - Specimen received in sterile container. Smear Result - No organisms seen No Polymorphonuclear Leukocytes Culture Result - No growth 14 days [facility] Comment on above: Performed By: #### T ISCUL ####[facility] [address], [place] [address]VcdybqqupCincinnati [facility]riners Hospital[address], [place] [phone] Tissue Cult / Stain Sp. Request/Comment: - Specimen received in sterile container. Smear Result - No organisms seen No Polymorphonuclear Leukocytes Culture Result - No growth 14 days Normal [facility] Comment on above: Performed By: #### T ISCUL ####[facility] [address] [place], [place] [address]QvqvuhusuChillicothe [facility] Center [address] [place], [place] [phone] Urinalysison 12-19-2020 Bacteria 1+ /HPF Critically abnormal Negative [facility] Bilirubin, Urine Negative Normal Negative [facility] Clarity (U) Turbid Critically abnormal Clear [facility] Color (U) Yellow Critically abnormal Yellow [facility] Comments SEE COMMENT Normal [facility] Comment on above: Result Comment: Micr oscopic Examination Performed Epithelial cells LM Ql (Urine sed) SEE COMMENT Critically abnormal Occasional [facility] Comment on above: Result Comment: 2+ Squamous Epithelial Cells Glucose Ql (U) Negative Normal Negative [facility] Hemoglobin/Blood,Ur 2+ Critically abnormal Negative [facility] Ketones Ql (U) Negative Normal Negative [facility] Leukest 500 Critically abnormal Negative [facility] Nitrite Ql (U) Negative Normal Negative [facility] pH (U) 6.0 [pH] Normal 5.0-8.0 [facility] Protein, Urine 1+ Critically abnormal Negative [facility] RBC 51-100 Critically abnormal 0-3 [facility] Specific [place], Ur 1.017 Normal 1.005-1.030 [facility] Urine, Other FOR EAST USE ONLY SEE COMMENT Normal [facility] Comment on above: Result Comment: 1+ Mucous Urobilinogen (U) [Mass/Vol] Negative Normal 0.2-1.0 [facility] WBC 100+ /HPF Critically abnormal 0-5 [facility] Urine Cultureon 12-19-2020 Bacteria identified Cx Nom (U) Sp. Request/Comment: - Specimen received in preservative Culture Result - >=100,000 CFU/ml Pseudomonas aeruginosa --> ABNORMAL ALERT ORGANISM: Pseudomonas aeruginosa METHOD: Minimum inhibitory concentration(Vitek) Antibiotic Interp ANDREA Status Gentamicin SUSCEPTIBLE <=1 F Ciprofloxacin SUSCEPTIBLE <=0.25 F Cefepime SUSCEPTIBLE <=1 F Piperacillin/Tazobac SUSCEPTIBLE <=4 F Meropenem INTERMEDIATE 4 F Critically abnormal [facility] Comment on above: Performed By: #### U RCUL ####[facility] [id number] [place], [place] [id number] XR CHEST 1V FRONTAL PORTon 0 12-19-2020 [...] 2020 7:59PM EST [id number] N Normal [facility] XR KNEE 2V AP/LAT RTon 12-19 [...] Dec 19 2020 7:35PM EST [id number] N [facility] XR KNEE 4V AP/LAT/OBLS RTon 12-19-2020 [...] Dec 19 2020 3:46AM EST [id number] N [facility] Basic Metabolic PanelOrdered By: Jorge Mejia on 12-18-2020 Anion gap [Moles/Vol] 4 mmol/L 3 - 13 mmol/L [facility] Work Phone: Calcium [Mass/Vol] 8.6 mg/dL 8.4 - 10. 4 mg/dL [facility] Work Phone: Chloride [Moles/Vol] 103 mmol/L 98 - 10 7 mmol/L [facility] Work Phone: CO2 [Moles/Vol] 27 mmol/L 22 - 30 mmol/L [facility] Work Phone: Creatinine [Mass/Vol] 0.79 mg/dL 0.52 - 1.25 mg/dL [facility] Work Phone: EGFR IF NonAfrican Iraqi 78.8 mL/min >60 [employer] Work Phone: [phone] Comment on above: KDIGO guidelines pro vide [...] MDRD (S/P/Bld) [Vol rate/Area] mL/min/{1.73_m2} >60 mL/min [employer] Work Phone: [phone] Glucose [Mass/Vol] 96 mg/dL 70 - 100 mg/dL [employer] Work Phone: [phone] Interpretation and review of laboratory results Abnormal [employer] Work Phone: [phone] Potassium [Moles/Vol] 4.0 mmol/L 3.5 - 5.1 mmol/L [employer] Work Phone: Sodium [Moles/Vol] 134 mmol/L Low 135 - 145 mmol/L [employer] Work Phone: [phone] Urea nitrogen (BldV) [Mass/Vol] 20 mg/dL 7 - 20 mg/dL [employer] Work Phone: [phone] Test Performed by [facility], [facility] [address] , [place], [place] [address] [employer] Work Phone: [phone] [employer] Work Phone: [phone] C-REACTIVE PROTEINOrdered By : Jorge Mejia on 12-18-2020 CRP [Mass/Vol] 237 mg/L High 0.0 - 6.0 mg/L [employer] Work Phone: [phone] Comment on above: . Interpretation and review of laboratory results Abnormal [employer] Work Phone: Test Performed by [facility], [address] , [place], [place] [address] [employer] Work Phone: [employer] Work Phone: Hemogram (CBC) w/Auto DiffOr dered By: Jorge Mejia on 12-18-2020 Absolute Baso # 0.1 10*3/uL 0.0 - 0.2 10*3/uL [employer] Work Phone: Absolute Neut # 8.5 10*3/uL High 1.8 - 7.0 10*3/uL [employer] Work Phone: Basophils/100 WBC (Bld) 0.5 % 0.0 - 2.0 % [employer] Work Phone: Eosinophils (Bld) [#/Vol] 0.1 10*3/uL 0.0 - 0.5 10*3/uL [employer] Work Phone: 1 Eosinophils/100 WBC (Bld) 0.5 % Low 1.0 - 6.0 % [employer] Work Phone: Granulocytes/100 WBC (Bld) 73.0 % 40.0 - 80.0 % [employer] Work Phone: Hematocrit (Bld) [Volume fraction] 37.1 % 35.0 - 47.0 % [employer] Work Phone: Hemoglobin.gastrointesti nal spec 1 Ql (Stl) 12.2 g/dL 11.7 - 16.0 g/dL [employer] Work Phone: Interpretation and review of laboratory results Abnormal [employer] Work Phone: Lymphocytes (Bld) [#/Vol] 2.0 10*3/uL 1.0 - 4.3 10*3/uL [employer] Work Phone: Lymphocytes/100 WBC (Bld) 17.1 % Low 20.0 - 40.0 % [employer] Work Phone: MCH (RBC) [Entitic mass] 31.5 pg 26. 0 - 34.0 pg [employer] Work Phone: MCHC (RBC) [Mass/Vol] 32.9 % 32.0 - 36.0 % [employer] Work Phone: MCV (RBC) [Entitic vol] 95.7 fL 79.0 - 98.0 fL [employer] Work Phone: Monocytes (Bld) [#/Vol] 1.0 10*3/uL High 0.0 - 0.8 10*3/uL [employer] Work Phone: Monocytes/100 WBC (Bld) 8.9 % 2.0 - 10.0 % [employer] Work Phone: Platelet distribution width (Bld) [Ratio] 15.6 % High 11.5 - 14.5 % [employer] Work Phone: Platelet mean volume (Bld) [Entitic vol] 8.4 fL 7.4 - 10.4 fL [employer] Work Phone: Platelets (Bld) [#/Vol] 188 10*3/uL 140 - 440 10*3/uL [employer] Work Phone: RBC (Bld) [#/Vol] 3.88 10*6/uL 3.80 - 5.2 0 10*6/uL [employer] Work Phone: WBC (Bld) [#/Vol] 11.7 10*3/uL High 3.6 - 10.7 10*3/uL [employer] Work Phone: Test Performed by [employer], [address] , [place] [id number] Work Phone: [employer] Work Phone: Lactic Acid, PlasmaOrdered B y: Jorge Roberto on 12-18-2020 Lactate [Moles/Vol] 0.7 mmol/L 0.7 - 2. 0 mmol/L [employer] Work Phone: Test Performed by [employer], [address] , [place], [place] [address] [facility] Work Phone: [phone] [facility] Work Phone: [phone] Sedimentation RateOrdered By : Jorge Mejia on 12-18-2020 Interpretation and review of laboratory results Abnormal [facility] Work Phone: Sed Rate 30 mm/h High 0 - 20 mm/h [facility] Work Phone: [phone] Test Performed by [facility] [employer] [facility], [address] , [place] [id number] [place] [address] Work Phone: [phone] [facility] Work Phone: [phone] XR KNEE RIGHT (3 VIEWS)Order ed By: Jorge Mejia on 12-18-2020 Patient Name: CHARLIE NGUYEN Diagnostic Radiology ACCESSION EXAM DATE/TIME PROCEDURE ORDERING PROVIDER [id number] 12/18/2020 21:31 EDT CR Knee 3 Views Right MD MEJIA VIJAY CPT code 02570 Reason For Exam (CR Knee 3 Views [...] WENDELL Transcribed Date and Time: 12/18/2020 9:43 [facility] Work Phone: Rodolfo, [facility] Incoming Radiology Results From [facility] - 12/18/2020 9:43 PM EDT Patient Name: CHARLIE NGUYEN Diagnostic Radiology ACCESSION EXAM DATE/TIME PROCEDURE ORDERING PROVIDER [id number] 12/18/2020 21:31 EDT CR Knee 3 Views Right MD ROBERTO, JORGE CPT code 39576 Reason For Exam (CR Knee 3 Views [...] and Time: 12/18/2020 9:43 [facility] Work Phone: [facility] Work Phone: Basic Metabolic Panelon 09-0 Anion gap [Moles/Vol] 8 mmol/L [place] Calcium [Mass/Vol] 8.1 mg/dL Low 8.4 - 10. 4 mg/dL [place] Chloride [Moles/Vol] 101 mmol/L 98 - 10 7 mmol/L [place] CO2 [Moles/Vol] 26 mmol/L 22 - 30 mmol/L [place] Creatinine [Mass/Vol] 0.56 mg/dL 0.52 - 1.25 mg/dL [place] EGFR IF NonAfrican [place] >90.0 >60 mL/min [place] Comment on above: KDIGO guidelines pro [...] MDRD (S/P/Bld) [Vol rate/Area] mL/min/{1.73_m2} >60 mL/min [place] Glucose [Mass/Vol] 82 mg/dL 70 - 100 mg/dL [place] Interpretation and review of laboratory results Abnormal [place] Potassium [Moles/Vol] 4.2 mmol/L 3.5 - 5.1 mmol/L [place] Sodium [Moles/Vol] 135 mmol/L 135 - 145 mmol/L [place] Urea nitrogen [Mass/Vol] 28 mg/dL High 7 - 20 mg/d L [place] Test Performed by [facility], [address], [place] [id number] [place] [address] CBC Auto Differentialon 09-0 -2019 Absolute Baso # 0.1 10*3/uL 0 - 0.2 10*3/uL [place] Absolute Neut # 4.2 10*3/uL 1.8 - 7 10*3/uL [place] Basophils/100 WBC (Bld) 1.1 % 0 - 2 % M [place] Eosinophils (Bld) [#/Vol] 0.5 10*3/uL 0 - 0.5 10*3/uL [place] Eosinophils/100 WBC (Bld) 6.4 % High 1 - 6 % [place] Erythrocyte distribution width (RBC) [Ratio] 16.2 % High 11.5 - 14.5 % [place] Granulocytes/100 WBC (Bld) 56.3 % 40 - 80 % [place] Hematocrit (Bld) [Volume fraction] 40.0 % 35 - 47 % [place] Hemoglobin (Bld) [Mass/Vol] 12.6 g/dL 11.7 - 16 g/dL [place] Interpretation and review of laboratory results Abnormal [place] Lymphocytes (Bld) [#/Vol] 1.8 10*3/uL 1 - 4.3 10*3/uL [place] Lymphocytes/100 WBC (Bld) 24.4 % 20 - 40 % [place] MCH (RBC) [Entitic mass] 27.4 pg 26 - 34 pg [place] MCHC (RBC) [Mass/Vol] 31.5 % Low 32 - 36 % [place] MCV (RBC) [Entitic vol] 87.0 fL 79 - 98 fL [place] Monocytes (Bld) [#/Vol] 0.9 10*3/uL High 0 - 0.8 10*3/uL [place] Monocytes/100 WBC (Bld) 11.8 % High 2 - 10 % [place] Platelet mean volume (Bld) [Entitic vol] 8.5 fL 7.4 - 10.4 fL [place] Platelets (Bld) [#/Vol] 291 10*3/uL 140 - 440 10*3/uL [place] RBC (Bld) [#/Vol] 4.60 10*6/uL 3.8 - 5.2 10*6/uL [place] WBC (Bld) [#/Vol] 7.5 10*3/uL 3.6 - 10.7 10*3/uL [place] Test Performed by [facility], [address] [place], [place] [id number] [place] [address] Basic Metabolic Panelon 09-0 Anion gap [Moles/Vol] 4 mmol/L [place] Calcium [Mass/Vol] 8.0 mg/dL Low 8.4 - 10. 4 mg/dL [place] Chloride [Moles/Vol] 108 mmol/L High 98 - 10 7 mmol/L [place] CO2 [Moles/Vol] 28 mmol/L 22 - 30 mmol/L [place] Creatinine [Mass/Vol] 0.63 mg/dL 0.52 - 1.25 mg/dL [place] EGFR IF NonAfrican [place] >90.0 >60 mL/min [place] Comment on above: KDIGO guidelines pro [...] MDRD (S/P/Bld) [Vol rate/Area] mL/min/{1.73_m2} >60 mL/min [place] Glucose [Mass/Vol] 90 mg/dL 70 - 100 mg/dL [place] Interpretation and review of laboratory results Abnormal [place] Potassium [Moles/Vol] 4.0 mmol/L 3.5 - 5.1 mmol/L [place] Sodium [Moles/Vol] 140 mmol/L 135 - 145 mmol/L [place] Urea nitrogen [Mass/Vol] 27 mg/dL High 7 - 20 mg/d L [place] Test Performed by [facility], [address] [place], [place] [address] [place] CBC Auto Differentialon 09-0 Erythrocyte distribution width (RBC) [Ratio] 16.0 % High 11.5 - 14.5 % [place] Hematocrit (Bld) [Volume fraction] 37.6 % 35 - 47 % [place] Hemoglobin (Bld) [Mass/Vol] 11.9 g/dL 11.7 - 16 g/dL [place] Interpretation and review of laboratory results Abnormal [place] MCH (RBC) [Entitic mass] 27.2 pg 26 - 34 pg [place] MCHC (RBC) [Mass/Vol] 31.6 % Low 32 - 36 % Stephanie [place], [place] MCV (RBC) [Entitic vol] 86.3 fL 79 - 98 fL M [place] Platelet mean volume (Bld) [Entitic vol] 8.7 fL 7.4 - 10.4 fL [place] Platelets (Bld) [#/Vol] 298 10*3/uL 140 - 440 10*3/uL [place] RBC (Bld) [#/Vol] 4.36 10*6/uL 3.8 - 5.2 10*6/uL [place] WBC (Bld) [#/Vol] 6.4 10*3/uL 3.6 - 10.7 10*3/uL [place] Test Performed by [facility], [address] [place] [id number] [place] [address] COVID-19on 02-02-2020 SARS-CoV-2 Not Detected Expected Result: Not Detected _ Real-time, RT-PCR performed on the [employer] System by the [facility]. Negative results do not preclude SARS-CoV-2 infection and should not be used as the sole basis for treatment or other patient management decisions. This assay was developed by [employer] and distributed under an Emergency Use Authorization (EUA) granted by the FDA for the qualitative detection of SARS-CoV-2 nucleic acid. [place] Test Performed by [facility], [address] [place] [address] Specimen Source Comment:Nasopharyngea l Swab [place] Manual Differentialon 2019 Absolute Baso # 0.0 10*3/uL 0 - 0.2 10*3/uL [place] Absolute Eos # 0.3 10*3/uL 0 - 0.5 10*3/uL [place] Absolute Lymph # 1.7 10*3/uL 1.1 - 4.5 10*3/uL [place] Absolute Bertie # 0.8 10*3/uL 0.2 - 1.1 10*3/uL [facility], [place] Absolute Neut # 3.6 10*3/uL 2.2 - 8.2 10*3/uL [facility], [place] Anisocytosis Ql (Bld) Slight [facility], [place] Bands 1 % 0 - 3 % [facility] Basophils 0 % 0 - 2 % [facility] Eosinophils 5 % 1 - 6 % [facility] Hypochromia Slight [facility], [place] Interpretation and review of laboratory results Abnormal [facility], [place] Lymphocytes 27 % 20 - 40 % [facility]- [place], [place] Monocytes 12 % High 2 - 10 % [facility], [place] PLATELETS, LARGE Slight [facility], [place] Poikilocytes Slight [facility], [place] RBC morphology finding Nom (Bld) ABNORMAL [facility], [place] Seg Neutrophils 55 % 40 - 80 % [facility], [place] TOTAL CELLS COUNTED 100 [facility], [place] Test Performed by [facility], [address] [place], [place] [address] [facility], [place] Otheron 02-02-2020 Blood Culture, Routine No growth at 5 days. [place] Test Performed by [facility], [address] [place] [address] Specimen Source Comment:Blood [place] XR CHEST PORTABLEon 02-02-20 20 Rodolfo, [facility]coming [facility] - 02/02/2020 7:39 PM EDT Patient Name: CHARLIE NGUYEN ---Diagnostic Radiology--- Exam Date/Time 02/02/2020 16:25:00 EDT Exam CR Chest Portable Ordering Physician YAMILKA STEWART Accession Number [id number] CPT4 Codes 14266 () Reason For Exam hypoxia Report CHEST [...] AHMAD Transcribed Date and Time: 02/02/2020 7:38 [place] Patient Name: CHARLIE NGUYEN ---Diagnostic Radiology--- Exam Date/Time 02/02/2020 16:25:00 EDT Exam CR Chest Portable Ordering Physician YAMILKA STEWART Accession Number [id number] CPT4 Codes 87952 () Reason For Exam hypoxia Report CHEST [...] AHMAD Transcribed Date and Time: 02/02/2020 7:38 [place] NM BONE SCAN LIMITEDon 01-31 Patient Name: CHARLIE NGUYEN ---Nuc Med--- Exam Date/Time 02/01/2020 13:27:26 EDT Exam NM Bone Imaging Limited Ordering Physician DEJA KOEHLER Accession Number [id number] CPT4 Codes 22296 () Reason For Exam R TKA pain [...] R Transcribed Date and Time: 02/01/2020 3:37 [place], [place] Rodolfo, Adina Incoming Radiology Results From [facility] - 02/01/2020 3:38 PM EDT Patient Name: CHARLIE NGUYEN ---[facility]--- Exam Date/Time 02/01/2020 13:27:26 EDT Exam NM Bone Imaging Limited Ordering Physician DEJA KOEHLER Accession Number [id number] CPT4 Codes 20474 () Reason For Exam R TKA pain [...] R Transcribed Date and Time: 02/01/2020 3:37 [place] Basic Metabolic Panelon 09-0 Anion gap [Moles/Vol] 11 mmol/L [place] Calcium [Mass/Vol] 9.0 mg/dL 8.4 - 10. 4 mg/dL [place] Chloride [Moles/Vol] 105 mmol/L 98 - 10 7 mmol/L [place] CO2 [Moles/Vol] 24 mmol/L 22 - 30 mmol/L [place] Creatinine [Mass/Vol] 0.41 mg/dL Low 0.52 - 1.25 mg/dL [place] EGFR IF NonAfrican [place] >90.0 >60 mL/min [place] Comment on above: KDIGO guidelines pro [...] MDRD (S/P/Bld) [Vol rate/Area] mL/min/{1.73_m2} >60 mL/min [place] Glucose [Mass/Vol] 93 mg/dL 70 - 100 mg/dL [place] Interpretation and review of laboratory results Abnormal [place] Potassium [Moles/Vol] 3.7 mmol/L 3.5 - 5.1 mmol/L [place] Sodium [Moles/Vol] 140 mmol/L 135 - 145 mmol/L [place] Urea nitrogen [Mass/Vol] 8 mg/dL 7 - 20 mg/d L [place] Test Performed by [facility], [address], [place], [place] [address] [place] C-Reactive Proteinon 020 CRP [Mass/Vol] 21.7 mg/L High 0 - 6 mg/L [place] Comment on above: . Interpretation and review of laboratory results Abnormal [place] Test Performed by [facility], [address], [place], [place] [address] [place] CBC Auto Differentialon Absolute Baso # 0.1 10*3/uL 0 - 0.2 10*3/uL [place] Absolute Neut # 2.8 10*3/uL 1.8 - 7 10*3/uL [place] Basophils/100 WBC (Bld) 1.0 % 0 - 2 % M [place] Eosinophils (Bld) [#/Vol] 0.3 10*3/uL 0 - 0.5 10*3/uL [place] Eosinophils/100 WBC (Bld) 5.4 % 1 - 6 % [place] Erythrocyte distribution width (RBC) [Ratio] 15.8 % High 11.5 - 14.5 % [place] Granulocytes/100 WBC (Bld) 49.4 % 40 - 80 % [place] Hematocrit (Bld) [Volume fraction] 36.8 % 35 - 47 % [place] Hemoglobin (Bld) [Mass/Vol] 11.8 g/dL 11.7 - 16 g/dL [place] Interpretation and review of laboratory results Abnormal [place] Lymphocytes (Bld) [#/Vol] 1.9 10*3/uL 1 - 4.3 10*3/uL [place] Lymphocytes/100 WBC (Bld) 33.6 % 20 - 40 % [place] MCH (RBC) [Entitic mass] 27.6 pg 26 - 34 pg [place] MCHC (RBC) [Mass/Vol] 31.9 % Low 32 - 36 % [place] MCV (RBC) [Entitic vol] 86.4 fL 79 - 98 fL M [place] Monocytes (Bld) [#/Vol] 0.6 10*3/uL 0 - 0.8 10*3/uL [place] Monocytes/100 WBC (Bld) 10.6 % High 2 - 10 % [place] Platelet mean volume (Bld) [Entitic vol] 8.4 fL 7.4 - 10.4 fL [place] Platelets (Bld) [#/Vol] 264 10*3/uL 140 - 440 10*3/uL [place] RBC (Bld) [#/Vol] 4.26 10*6/uL 3.8 - 5.2 10*6/uL [place] WBC (Bld) [#/Vol] 5.6 10*3/uL 3.6 - 10.7 10*3/uL [place] Test Performed by [facility], [facility] [address] Sedimentation Rateon 020 Interpretation and review of laboratory results Abnormal [place] Sed Rate 38 mm/h High 0 - 20 mm/h [place] Test Performed by [facility], [facility] [address] Basic Metabolic Panelon 08-3 Anion gap [Moles/Vol] 8 mmol/L [place] Calcium [Mass/Vol] 8.0 mg/dL Low 8.4 - 10. 4 mg/dL [place] Chloride [Moles/Vol] 108 mmol/L High 98 - 10 7 mmol/L [place] CO2 [Moles/Vol] 25 mmol/L 22 - 30 mmol/L [place] Creatinine [Mass/Vol] 0.4 mg/dL Low 0.52 - 1.25 mg/dL [place] EGFR IF NonAfrican [place] >90.0 >60 mL/min [place] Comment on above: KDIGO guidelines pro [...] MDRD (S/P/Bld) [Vol rate/Area] mL/min/{1.73_m2} >60 mL/min [place] Glucose [Mass/Vol] 95 mg/dL 70 - 100 mg/dL [place] Interpretation and review of laboratory results Abnormal [place] Potassium [Moles/Vol] 3.9 mmol/L 3.5 - 5.1 mmol/L [place] Sodium [Moles/Vol] 140 mmol/L 135 - 145 mmol/L [place] Urea nitrogen [Mass/Vol] 13 mg/dL 7 - 20 mg/d L [place] Test Performed by [facility], [address] [place], [place] [id number] [place] [address] CBC Auto Differentialon 08-3 Absolute Baso # 0.1 10*3/uL 0 - 0.2 10*3/uL [place] Absolute Neut # 4.6 10*3/uL 1.8 - 7 10*3/uL [place] Basophils/100 WBC (Bld) 1.1 % 0 - 2 % [place] Eosinophils (Bld) [#/Vol] 0.5 10*3/uL 0 - 0.5 10*3/uL [place] Eosinophils/100 WBC (Bld) 6.6 % High 1 - 6 % [place] Erythrocyte distribution width (RBC) [Ratio] 16.4 % High 11.5 - 14.5 % [place] Granulocytes/100 WBC (Bld) 60.9 % 40 - 80 % [place] Hematocrit (Bld) [Volume fraction] 32.0 % Low 35 - 47 % [place] Hemoglobin (Bld) [Mass/Vol] 10.1 g/dL Low 11.7 - 16 g/dL [place] Interpretation and review of laboratory results Abnormal [place] Lymphocytes (Bld) [#/Vol] 1.7 10*3/uL 1 - 4.3 10*3/uL [place] Lymphocytes/100 WBC (Bld) 22.6 % 20 - 40 % [place] MCH (RBC) [Entitic mass] 27.9 pg 26 - 34 pg [place] MCHC (RBC) [Mass/Vol] 31.5 % Low 32 - 36 % [place] MCV (RBC) [Entitic vol] 88.6 fL 79 - 98 fL [place] Monocytes (Bld) [#/Vol] 0.7 10*3/uL 0 - 0.8 10*3/uL [place] Monocytes/100 WBC (Bld) 8.8 % 2 - 10 % [place] Platelet mean volume (Bld) [Entitic vol] 8.9 fL 7.4 - 10.4 fL [place] Platelets (Bld) [#/Vol] 257 10*3/uL 140 - 440 10*3/uL [place] RBC (Bld) [#/Vol] 3.62 10*6/uL Low 3.8 - 5.2 10*6/uL [place] WBC (Bld) [#/Vol] 7.5 10*3/uL 3.6 - 10.7 10*3/uL [place] Test Performed by [facility], [address] [facility]. [place], [place] [id number] [place] [address] C. difficile toxin Molecular on 01-29-2020 C. difficile toxin Molecular NEGATIVE Methodology - Real Time PCR ([employer] Clinical judgement must be used when interpreting results. Positive results may reflect colonization. Indeterminate results suggest a new specimen be submitted. [place] Gastrointestinal Panel by MEI Nunn 01-29-2020 Gastrointestinal PCR Panel NEGATIVE: No targets were detected by the [employer] Gastrointestinal PCR Panel. _ The [employer] Gastrointestinal PCR Panel can detect the following targets: Campylobacter, Plesiomonas shigelloides, Salmonella, Vibrio species, Vibrio cholerae, Yersinia enterocolitica, Shiga toxin-producing E coli (STEC) including E coli O157, Enterotoxigenic E coli (ETEC), Shigella/Enteroinvasi ve E coli (EIEC), Cryptosporidium, Cyclospora cayetanensis, Entamoeba histolytica, Giardia lamblia, Adenovirus F 40/41, Astrovirus, Norovirus GI/GII, Rotavirus A, Sapovirus [place] Otheron 01-29-2020 Test Performed by [facility] [address] [address] Specimen Source Comment:Stool [place] XR Knee Bilateral Standardon 01-29-2020 Patient Name: CHARLIE NGUYEN ---Diagnostic Radiology--- Exam Date/Time 01/29/2020 14:05:00 EDT Exam CR Knee 3 Views Bilateral Ordering Physician KILEY PARKINSON Accession Number [id number] CPT4 Codes 27910 () Reason For Exam fall, knee pain [...] KEVIN Transcribed Date and Time: 01/29/2020 3:27 [place] Rodolfo, [facility] Incoming Radiology Results From [facility] - 01/29/2020 3:27 PM EDT Patient Name: CHARLIE NGUYEN ---Diagnostic Radiology--- Exam Date/Time 01/29/2020 14:05:00 EDT Exam CR Knee 3 Views Bilateral Ordering Physician KILEY PARKINSON Accession Number [id number] CPT4 Codes 18715 () Reason For Exam fall, knee pain [...] KEVIN Transcribed Date and Time: 01/29/2020 3:27 [facility] [place] Add On Lab Teston 01-28-2020 Sodium [Moles/Vol] Rejected [place] Test Performed by [facility] [place], [address] CBC auto differentialon 12-31 Erythrocyte distribution width (RBC) [Ratio] 16.2 % High 11.5 - 14.5 % [place] Hematocrit (Bld) [Volume fraction] 37.0 % 35 - 47 % [place] Hemoglobin (Bld) [Mass/Vol] 11.8 g/dL 11.7 - 16 g/dL [place] Interpretation and review of laboratory results Abnormal [place] MCH (RBC) [Entitic mass] 28.0 pg 26 - 34 pg [place] MCHC (RBC) [Mass/Vol] 31.8 % Low 32 - 36 % [place] MCV (RBC) [Entitic vol] 88.1 fL 79 - 98 fL [place] Platelet mean volume (Bld) [Entitic vol] 8.5 fL 7.4 - 10.4 fL [place] Platelets (Bld) [#/Vol] 280 10*3/uL 140 - 440 10*3/uL [place] RBC (Bld) [#/Vol] 4.20 10*6/uL 3.8 - 5.2 10*6/uL [place] WBC (Bld) [#/Vol] 9.1 10*3/uL 3.6 - 10.7 10*3/uL [place] Test Performed by [facility], [address] [place] [address] [place] Comprehensive Metabolic Pane l w/ Reflex to MGon 01-28-2020 Albumin [Mass/Vol] 3.4 g/dL Low 3.5 - 5 g/dL [place] ALP [Catalytic activity/Vol] 98 U/L 38 - 126 U/L [place] ALT [Catalytic activity/Vol] 13 U/L 0 - 34 U/L [place] Comment on above: The ALT test is perf ormed by an updated assay method. Please note that the reference intervals have been changed and are now sex specific. Anion gap [Moles/Vol] 6 mmol/L [place] AST [Catalytic activity/Vol] 26 U/L 15 - 46 U/L [place] Bilirubin Ql (U) 0.3 mg/dL 0.2 - 1.3 mg/dL [place] Calcium [Mass/Vol] 8.0 mg/dL Low 8.4 - 10. 4 mg/dL [place] Chloride [Moles/Vol] 102 mmol/L 98 - 10 7 mmol/L [place] CO2 [Moles/Vol] 30 mmol/L 22 - 30 mmol/L [place] Creatinine [Mass/Vol] 0.46 mg/dL Low 0.52 - 1.25 mg/dL [place] EGFR IF NonAfrican [place] >90.0 >60 mL/min [place] Comment on above: KDIGO guidelines pro [...] MDRD (S/P/Bld) [Vol rate/Area] mL/min/{1.73_m2} >60 mL/min [place] Glucose [Mass/Vol] 91 mg/dL 70 - 100 mg/dL [place] Interpretation and review of laboratory results Abnormal [place] Potassium [Moles/Vol] 3.2 mmol/L Low 3.5 - 5.1 mmol/L [place] Protein [Mass/Vol] 7.1 g/dL 6.3 - 8.2 g/dL [place] Sodium [Moles/Vol] 138 mmol/L 135 - 145 mmol/L [place] Urea nitrogen [Mass/Vol] 20 mg/dL 7 - 20 mg/d L [place] Test Performed by [facility], [address] 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1955 Requested By: LEW JOHNSON Order Number: [id number] Reading MD: Sulaiman Jc Measurements Intervals [place] Rate: 53 P: [place]: QRS: -4 QRSD: 106 T: 244 QT: 476 QTc: 447 Interpretive Statements SINUS BRADYCARDIA BORDERLINE INTRAVENTRICULAR CONDUCTION DELAY BORDERLINE REPOLARIZATION ABNORMALITY Electronically Signed On 01-28-2020 13:03:43 EDT by Sulaiman [place], [place], [facility] Incoming Cardiology Results From [facility] - 01/28/2020 1:04 PM EDT [facility] Test Date: 2020-01-27 Pat Name: Charlie Nguyen Department: 01 Room: 260 Gender: F 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 [place], [address] Manual Differentialon 2019 Absolute Baso # 0.0 10*3/uL 0 - 0.2 10*3/uL [place] Absolute Eos # 0.1 10*3/uL 0 - 0.5 10*3/uL [facility] [place], [place] Absolute Lymph # 1.4 10*3/uL 1.1 - 4.5 10*3/uL [facility] Absolute Bertie # 0.5 10*3/uL 0.2 - 1.1 10*3/uL [facility] [place] Absolute Neut # 7.1 10*3/uL 2.2 - 8.2 10*3/uL [facility] Anisocytosis Ql (Bld) Slight [facility] Bands 0 % 0 - 3 % [facility] Basophils 0 % 0 - 2 % [facility] Eosinophils 1 % 1 - 6 % [facility] Hypochromia Slight [facility], [place] Interpretation and review of laboratory results Abnormal [place] Lymphocytes 15 % Low 20 - 40 % [facility] Monocytes 6 % 2 - 10 % [facility] Poikilocytes Slight [facility] Polychromasia Slight [facility], [place] RBC morphology finding Nom (Bld) ABNORMAL [facility], [place] Seg Neutrophils 78 % 40 - 80 % [facility], [place] TOTAL CELLS COUNTED 100 [facility], [place] TOXIC VACUOLES Slight [place] Test Performed by [facility], [address], [place], [place] [address] [place] ACETAMINOPHEN LEVELon 2019 Acetaminophen [Mass/Vol] <10.0 10 - 30 ug/mL [place], [place] CBC Auto Differentialon 12-31 Absolute Baso # 0.2 10*3/uL 0 - 0.2 10*3/uL [facility], [place] Absolute Neut # 7.0 10*3/uL 1.8 - 7 10*3/uL [facility] [place], [place] Basophils/100 WBC (Bld) 1.4 % 0 - 2 % M [facility], [place] Eosinophils (Bld) [#/Vol] 0.4 10*3/uL 0 - 0.5 10*3/uL [facility], [place] Eosinophils/100 WBC (Bld) 3.5 % 1 - 6 % [place] Erythrocyte distribution width (RBC) [Ratio] 16.2 % High 11.5 - 14.5 % [place] Granulocytes/100 WBC (Bld) 67.4 % 40 - 80 % [place] Hematocrit (Bld) [Volume fraction] 38.0 % 35 - 47 % [place] Hemoglobin (Bld) [Mass/Vol] 12.2 g/dL 11.7 - 16 g/dL [place] Lymphocytes (Bld) [#/Vol] 2.2 10*3/uL 1 - 4.3 10*3/uL [place] Lymphocytes/100 WBC (Bld) 21.4 % 20 - 40 % [place] MCH (RBC) [Entitic mass] 27.8 pg 26 - 34 pg [place] MCHC (RBC) [Mass/Vol] 32.0 % 32 - 36 % [place] MCV (RBC) [Entitic vol] 86.7 fL 79 - 98 fL [place], [place] Monocytes (Bld) [#/Vol] 0.7 10*3/uL 0 - 0.8 10*3/uL [place] Monocytes/100 WBC (Bld) 6.3 % 2 - 10 % [place] Platelet mean volume (Bld) [Entitic vol] 8.4 fL 7.4 - 10.4 fL [place] Platelets (Bld) [#/Vol] 318 10*3/uL 140 - 440 10*3/uL [place] RBC (Bld) [#/Vol] 4.38 10*6/uL 3.8 - 5.2 10*6/uL [place] WBC (Bld) [#/Vol] 10.5 10*3/uL 3.6 - 10.7 10*3/uL [place] CKon 01-27-2020 Total CK 31 U/L 30 - 170 U/L [place] CT Head WO Contraston 2019 Patient Name: CHARLIE NGUYEN ---CT--- Exam Date/Time 01/27/2020 17:32:[address] Head or Brain w/o Contrast Ordering Physician BENJAMIN JOHNSON DANIEL M Accession Number [id number] CPT4 Codes 87343 () Reason For Exam weakness, found on [...] WENDELL Transcribed Date and Time: 01/27/2020 5:41 [place], [facility] Incoming Radiology Results From [facility] - 01/27/2020 5:41 PM EDT Patient Name: CHARLIE NGUYEN ---CT--- Exam Date/Time 01/27/2020 17:32:[address] Head or Brain w/o Contrast Ordering Physician BENJAMIN JOHNSON DANIEL M Accession Number [id number] CPT4 Codes 32045 () Reason For Exam weakness, found on [...] WENDELL Transcribed Date and Time: 01/27/2020 5:41 [place] Comprehensive Metabolic Pane rafiq 01-27-2020 Albumin [Mass/Vol] 3.5 g/dL 3.5 - 5 g/dL [place] ALP [Catalytic activity/Vol] 102 U/L 38 - 126 U/L [place] ALT [Catalytic activity/Vol] 14 U/L 0 - 34 U/L [place] Comment on above: The ALT test is perf ormed by an updated assay method. Please note that the reference intervals have been changed and are now sex specific. Anion gap [Moles/Vol] 6 mmol/L [place] AST [Catalytic activity/Vol] 26 U/L 15 - 46 U/L [place] Bilirubin Ql (U) 0.4 mg/dL 0.2 - 1.3 mg/dL [place] Calcium [Mass/Vol] 8.5 mg/dL 8.4 - 10. 4 mg/dL [place] Chloride [Moles/Vol] 98 mmol/L 98 - 10 7 mmol/L [place] CO2 [Moles/Vol] 35 mmol/L High 22 - 30 mmol/L [place] Creatinine [Mass/Vol] 0.61 mg/dL 0.52 - 1.25 mg/dL [place] EGFR IF NonAfrican [place] >90.0 >60 mL/min [place] Comment on above: KDIGO guidelines pro [...] MDRD (S/P/Bld) [Vol rate/Area] mL/min/{1.73_m2} >60 mL/min [place] Glucose [Mass/Vol] 100 mg/dL 70 - 100 mg/dL [place] Potassium [Moles/Vol] 2.6 mmol/L Critically low 3.5 - 5.1 mmol/L [place] Protein [Mass/Vol] 7.3 g/dL 6.3 - 8.2 g/dL [place] Sodium [Moles/Vol] 140 mmol/L 135 - 145 mmol/L [place] Urea nitrogen [Mass/Vol] 26 mg/dL High 7 - 20 mg/d L [place] Test Performed by [facility], [address] Magnesiumon 01-27-2020 Magnesium [Mass/Vol] 1.8 mg/dL 1.6 - 2 .3 mg/dL [place] Otheron 01-27-2020 Interpretation and review of laboratory results Abnormal [place] Test Performed by [facility], [address] Test Performed by [facility], [address] Salicylateon 01-27-2020 Salicylate Lvl <1.0 0 - 20 mg/dL [place] Troponinon 01-27-2020 Troponin I.cardiac [Mass/Vol] ng/mL 0 - 0.034 ng/mL [place] Comment on above: . Test Performed by [facility], [address] Urinalysison 01-27-2020 AMORPHOUS CRYSTAL Few Abnormal Negative /[HPF] [place] Comment on above: . Appearance (U) Ex.Turbid Abnormal Clear NA [place] Comment on above: . Bacteria, UA Few Abnormal Negative /[HPF] [place] Comment on above: . Bilirubin Urine Negative Negative mg/dL [place] Comment on above: . Color (U) Yellow Lt. Yellow NA [place] Comment on above: . Glucose, Ur Normal Normal (<70) mg/dL [place], [place] Comment on above: . Interpretation and review of laboratory results Abnormal [place] Ketones Ql (U) 10 mg/dL Abnormal Negative [place], [place] Comment on above: . LEUKOCYTES, UA 500 Abnormal Negative Simon/uL [place] Comment on above: . Nitrite, Urine Negative Negative NA [place] Comment on above: . Non-Squamous Epithelial 2 /[HPF] Abnormal Negative [place] Comment on above: . Occult Blood,Urine 0.2 mg/dL Abnormal Negative [place], [place] Comment on above: . pH (U) 6.5 [pH] [place] Comment on above: . Protein (U) [Mass/Vol] 70 mg/dL Abnormal Negative [place], [place] Comment on above: . RBC (U) [#/Vol] 11-25 Abnormal 0 - 2 /[HPF] [place] Comment on above: . Specific [place], Urine 1.025 [place] Comment on above: . Urobilinogen, Urine Normal Normal ( 0-1) mg/dL [place], [place] Comment on above: . WBC Clumps, Urine Moderate Abnormal Negative /[HPF] [place] Comment on above: . WBC, UA >100 Abnormal 0 - 5 /[HPF] [place] Comment on above: . Test Performed by [facility], [address], [place], [place] [address] [place] Urine Drug Screenon 01-27-20 20 Amphetamines, urine Negative [place], [place] Barbiturates, Ur Negative [place] Benzodiazepine Ur Qual Positive [place], [place] Cocaine Metabolites, Ur Negative [place] Methadone, Urine Negative [place] Opiates, Urine Negative [place] Oxycodone Screen, Ur Negative [place], [place] PCP, Urine Negative [place] Comment on above: The expected value [...] confirmation under separate order. Test Performed by [facility] [employer] [facility], [address] [place] [address] XR CHEST PORTABLEon 01-27-20 20 Rodolfo, [facility] Incoming Radiology Results From [facility] - 01/27/2020 6:12 PM EDT Patient Name: CHARLIE NGUYEN ---Diagnostic Radiology--- Exam Date/Time 01/27/2020 17:38:59 EDT Exam CR Chest Portable Ordering Physician BENJAMIN JOHNSON DANIEL M Accession Number [id number] CPT4 Codes 47096 () Reason For Exam weakness, cough Report [...] WENDELL Transcribed Date and Time: 01/27/2020 6:12 [place] Patient Name: CHARLIE NGUYEN ---Diagnostic Radiology--- Exam Date/Time 01/27/2020 17:38:59 EDT Exam CR Chest Portable Ordering Physician BENJAMIN JOHNSON DANIEL M Accession Number [id number] CPT4 Codes 18096 () Reason For Exam weakness, cough Report [...] WENDELL Transcribed Date and Time: 01/27/2020 6:12 [place], [place] Sed Rateon 12-06-2019 Sed Rate 35 mm/hr High 0-20 [facility] Comment on above: Performed By: #### E SR #### [place] [address] CRPon 12-05-2019 CRP [Mass/Vol] 2.4 mg/dL High 0.0-0.8 [facility] Comment on above: Performed By: #### C RP3 #### [place] [address] Comprehensive Metabolic Pane rafiq 12-05-2019 Albumin [Mass/Vol] 3.5 g/dL Low 3.9-4.9 [facility] Comment on above: Performed By: #### C MP #### [facility] [address] [place], [place] [address] ALP [Catalytic activity/Vol] 75 U/L Normal 34-123 [facility] Comment on above: Performed By: #### C MP #### [facility] [address] [place], [place] [address] ALT [Catalytic activity/Vol] U/L Low 7-38 [facility] Comment on above: Performed By: #### C MP #### [facility] [address] [place], [place] [address] Anion gap [Moles/Vol] 10 mmol/L Normal 9-18 [facility] Comment on above: Performed By: #### C MP #### [facility] [address] [place], [place] [address] AST [Catalytic activity/Vol] 16 U/L Normal 13-35 [facility] Comment on above: Performed By: #### C MP #### [facility] [address] [place], [place] [address] Bilirubin [Mass/Vol] 0.2 mg/dL Normal 0.2-1.3 [facility] Comment on above: Performed By: #### C MP #### [facility] [address] [place], [place] [address] Calcium [Mass/Vol] 8.6 mg/dL Normal 8.5-10.2 [facility] Comment on above: Performed By: #### C MP #### [facility] [address] [place], [place] [address] Chloride [Moles/Vol] 98 mmol/L Normal 97-105 [facility] Comment on above: Performed By: #### C MP #### [facility] [address] [place], [place] [address] CO2 Blood 27 mmol/L Normal 22-30 [facility] Comment on above: Performed By: #### C MP #### [facility] [address] [place], [place] [address] Creatinine [Mass/Vol] 0.45 mg/dL Low 0.58-0.96 [facility] Comment on above: Performed By: #### C MP #### [facility] [address] [place], [place] [address] Glucose [Mass/Vol] 79 mg/dL Normal 74-99 [facility] Comment on above: Result Comment: The [place] Diabetes Association (ADA) provides guidance for cutoff [...] Standards of Medical Care in Diabetes 2016; [place] Diabetes Association. Diabetes Care. 2016;39(Suppl 1). Performed By: #### C MP #### [facility] [address] [place] [address] Potassium [Moles/Vol] 4.0 mmol/L Normal 3.7-5.1 [facility] Comment on above: Performed By: #### C MP #### [place] [address] Protein [Mass/Vol] 7.1 g/dL Normal 6.3-8.0 [facility] Comment on above: Performed By: #### C MP #### [place] [address] Sodium [Moles/Vol] 135 mmol/L Low 136-144 [facility] Comment on above: Performed By: #### C MP #### [place] [address] Urea nitrogen [Mass/Vol] 12 mg/dL Normal 7-21 [facility] Comment on above: Performed By: #### C MP #### [place] [address] Hemogram/Diffon 12-05-2019 Abs Immature Grans 0.03 thou/cmm Normal 0.00-0.05 [facility] Comment on above: Performed By: #### C BCD1 #### [place] [address] Abs Neut (ANC) 5.08 thou/cmm Normal 1.56-6.13 [facility] Comment on above: Performed By: #### C BCD1 #### [place] [address] Abs. Baso 0.07 thou/cmm Normal 0.01-0.08 [facility] Comment on above: Performed By: #### C BCD1 #### [facility] [address] [place] [address] Abs. Bertie 0.74 thou/cmm High 0.27-0.70 [facility] Comment on above: Performed By: #### C BCD1 #### [facility] [address] [place] [address] Basophils/100 WBC (Bld) 0.8 % Normal A [facility] Comment on above: Performed By: #### C BCD1 #### [facility] [address] [place] [address] Eosinophils (Bld) [#/Vol] 0.57 thou/cmm High 0.00-0.31 [facility] Comment on above: Performed By: #### C BCD1 #### [facility] [address] [place] [address] Eosinophils/100 WBC (Bld) 6.6 % Normal [facility] Comment on above: Performed By: #### C BCD1 #### [facility] [address] [place] [address] Erythrocyte distribution width (RBC) [Ratio] 15.0 % High 11.7-14.4 [facility] Comment on above: Performed By: #### C BCD1 #### [facility] [address] [place] [address] Hematocrit (Bld) [Volume fraction] 34.9 % Normal 34.1-44.9 [facility] Comment on above: Performed By: #### C BCD1 #### [facility] [address] [place] [address] Hemoglobin (Bld) [Mass/Vol] 10.8 g/dL Low 11.2-15.7 [facility] Comment on above: Performed By: #### C BCD1 #### [facility] [address] [place] [address] Immature Grans 0.30 % Normal [facility] Comment on above: Performed By: #### C BCD1 #### [facility] [address] [place] [address] Lymphocytes (Bld) [#/Vol] 2.20 thou/cmm Normal 1.18-3.74 [facility] Comment on above: Performed By: #### C BCD1 #### [facility] [address] [place], [place] [address] Lymphocytes/100 WBC (Bld) 25.3 % Normal [facility] Comment on above: Performed By: #### C BCD1 #### [facility] [address] [place], [place] [address] MCH (RBC) [Entitic mass] 29.8 pg Normal 25.6-32.2 [facility] Comment on above: Performed By: #### C BCD1 #### [facility] [address] [place], [place] [address] MCHC (RBC) [Mass/Vol] 30.9 % Low 31.6-34.8 [facility] Comment on above: Performed By: #### C BCD1 #### [facility] [address] [place], [place] [address] MCV (RBC) [Entitic vol] 96.1 fL High 79.4-94.8 [facility] Comment on above: Performed By: #### C BCD1 #### [facility] [address] [place], [place] [address] Monocytes/100 WBC (Bld) 8.5 % Normal [facility] Comment on above: Performed By: #### C BCD1 #### [facility] [address] [place], [place] [address] Platelet mean volume (Bld) [Entitic vol] 10.3 fL Normal 9.4-12.3 [facility] Comment on above: Performed By: #### C BCD1 #### [facility] [address] [place], [place] [address] Platelets (Bld) [#/Vol] 428 thou/cmm High 182-369 [facility] Comment on above: Performed By: #### C BCD1 #### [facility] [address] [place], [place] [address] RBC (Bld) [#/Vol] 3.63 mil/cmm Low 3.93-5.22 [facility] Comment on above: Performed By: #### C BCD1 #### [facility] [address] [place] [address] RDW SD 53.2 fl High 36.4-46.3 [facility] Comment on above: Performed By: #### C BCD1 #### [facility] [address] [place] [address] Seg Neutrophil 58.5 % Normal [facility] Comment on above: Performed By: #### C BCD1 #### [facility] [address] [place] [address] WBC (Bld) [#/Vol] 8.69 thou/cmm Normal 3.98-10.04 [facility] Comment on above: Performed By: #### C BCD1 #### [facility] [address] [place] [address] MDRD GFRon 12-05-2019 GFR/1.73 sq M predicted among non-blacks MDRD (S/P/Bld) [Vol rate/Area] mL/min/{1.73_m2} Normal >60mL/min/1. 73m2 [facility] Comment on above: Result Comment: If t he patient is , multiply the result by 1.210. Performed By: #### G FR #### [place] [address] Add On Lab Teston 11-04-2019 Sodium [Moles/Vol] Accepted [place] Comment on above: Specimen available & acceptable for analysis. Test Performed by [facility] [employer] [address] [place] [address] Basic Metabolic Panelon Anion gap [Moles/Vol] 8 mmol/L [place] Calcium [Mass/Vol] 9.1 mg/dL 8.4 - 10. 4 mg/dL [place] Chloride [Moles/Vol] 96 mmol/L Low 98 - 10 7 mmol/L [place] CO2 [Moles/Vol] 32 mmol/L High 22 - 30 mmol/L [place] Creatinine [Mass/Vol] 0.6 mg/dL 0.52 - 1.25 mg/dL [place] EGFR IF NonAfrican [place] >90.0 >60 mL/min [place] Comment on above: KDIGO guidelines pro [...] MDRD (S/P/Bld) [Vol rate/Area] mL/min/{1.73_m2} >60 mL/min [place] Glucose [Mass/Vol] 133 mg/dL High 70 - 100 mg/dL [place] Potassium [Moles/Vol] 3.4 mmol/L Low 3.5 - 5.1 mmol/L [place] Sodium [Moles/Vol] 137 mmol/L 135 - 145 mmol/L [place] Urea nitrogen [Mass/Vol] 22 mg/dL High 7 - 20 mg/d L [place] Body Fluid Cell Count with D ifferentialon 11-04-2019 Nucl Cell, Fluid 70773 {cells}/uL [place] Sodium [Moles/Vol] SYNOVIAL [place] Test Performed by [facility] [place] [address] [place] Body Fluid Crystalon 020 Crystals LM Nom (Urine sed) Negative [place] Sodium [Moles/Vol] Synovial [place] Test Performed by [employer], [facility] [employer] [place] [address] [place] C-Reactive Proteinon 020 CRP [Mass/Vol] 41.4 mg/L High 0 - 6 mg/L [place] Comment on above: . Differential, Body Fluidon 0 11-04-2019 Eosinophils/100 WBC (Bld) 0 % [place] Comment on above: CORRECTED RESULT...P revious above value was 6, verified on 11/04/19 at 16:51 by [email or web address] . Lymphocytes/100 WBC (Bld) 1 % [place] Comment on above: CORRECTED RESULT...P revious above value was 4, verified on 11/04/19 at 16:51 by [email or web address] . Macrophage count 3 % [place] Comment on above: CORRECTED RESULT...P revious above value was 2, verified on 11/04/19 at 16:51 by [email or web address] . Neutrophils/100 WBC (Bld) 96 % [place] Comment on above: CORRECTED RESULT...P revious above value was 87, verified on 11/04/19 at 16:51 by [email or web address] . Other Cells, Fluid 0 % [place] Comment on above: all other cells are synovial lining cells CORRECTED RESULT...Previous above value was 1, verified on 11/04/19 at 16:52 by [email or web address] . Sodium [Moles/Vol] 100 mmol/L [place] Test Performed by [facility], [address] [place] [address] [place] GRAM STAINon 11-04-2019 INR Coag (Bld) [Relative time] Many polymorphonuclear cells/lpf. No organisms seen. [place] Test Performed by [facility], [address] [place] [id number] Specimen Source Comment:Leg [place] Hemogram (CBC) w/Auto Diffon 11-04-2019 Absolute Baso # 0.0 10*3/uL 0 - 0.2 10*3/uL [place] Absolute Neut # 5.8 10*3/uL 1.8 - 7 10*3/uL [place] Basophils/100 WBC (Bld) 0.4 % 0 - 2 % M [facility] [place] Eosinophils (Bld) [#/Vol] 0.2 10*3/uL 0 - 0.5 10*3/uL [place] Eosinophils/100 WBC (Bld) 2.8 % 1 - 6 % [place] Erythrocyte distribution width (RBC) [Ratio] 15.6 % High 11.5 - 14.5 % [place] Granulocytes/100 WBC (Bld) 71.8 % 40 - 80 % [place] Hematocrit (Bld) [Volume fraction] 33.7 % Low 35 - 47 % [place] Hemoglobin (Bld) [Mass/Vol] 11.4 g/dL Low 11.7 - 16 g/dL [place] Interpretation and review of laboratory results Abnormal [place] Lymphocytes (Bld) [#/Vol] 1.3 10*3/uL 1 - 4.3 10*3/uL [place] Lymphocytes/100 WBC (Bld) 16.4 % Low 20 - 40 % [place] MCH (RBC) [Entitic mass] 31.9 pg 26 - 34 pg [place] MCHC (RBC) [Mass/Vol] 33.7 % 32 - 36 % [place] MCV (RBC) [Entitic vol] 94.5 fL 79 - 98 fL [place] Monocytes (Bld) [#/Vol] 0.7 10*3/uL 0 - 0.8 10*3/uL [place] Monocytes/100 WBC (Bld) 8.6 % 2 - 10 % [place] Platelet mean volume (Bld) [Entitic vol] 7.8 fL 7.4 - 10.4 fL [place] Platelets (Bld) [#/Vol] 440 10*3/uL 140 - 440 10*3/uL [place] RBC (Bld) [#/Vol] 3.57 10*6/uL Low 3.8 - 5.2 10*6/uL [place] WBC (Bld) [#/Vol] 8.1 10*3/uL 3.6 - 10.7 10*3/uL [place] Test Performed by [address] Metabolic Panelon 11-04-2019 Sodium [Moles/Vol] Negative [place] Otheron 11-04-2019 Interpretation and review of laboratory results Abnormal [place] Test Performed by [facility], [address] [place] [address] Protime-INRon 11-04-2019 INR Coag (PPP) [Relative time] 1.0 {INR} [place] Comment on above: Recommended Anticoag ulant [...] [Time] 11.1 s 9 - 12 s [place] Comment on above: . Test Performed by [facility], [address] [place] [address] Sedimentation Rateon 020 Sed Rate 96 mm/h High 0 - 20 mm/h [place] TYPE AND SCREENon 11-04-2019 Sodium [Moles/Vol] AB [place] Test Performed by [facility], [address] [place] [address] XR CHEST PORTABLEon 11-04-19 20 [place], [facility] Incoming [facility] - 11/04/2019 7:34 PM EDT Patient Name: CHARLIE NGUYEN ---Diagnostic Radiology--- Exam Date/Time 11/04/2019 19:28:19 EDT Exam CR Chest Portable Ordering Physician EKDO DORSEY R Accession Number [id number] CPT4 Codes 64160 () Reason For Exam pre-op Report Portable [...] BRIAN Transcribed Date and Time: 11/04/2019 7:32 [place] Patient Name: CHARLIE NGUYEN ---Diagnostic Radiology--- Exam Date/Time 11/04/2019 19:28:19 EDT Exam CR Chest Portable Ordering Physician DO BOWLES DORSEY R Accession Number [id number] CPT4 Codes 35458 () Reason For Exam pre-op Report Portable [...] catheter has been removed. Report Dictated on Workstation: [id number] --- Final --- Dictated: 11/04/2019 7:32 pm Dictating Physician: MD CRUZ BRIAN Signed Date and Time: 11/04/2019 7:33 pm Signed by: MD CRUZ BRIAN Transcribed Date and Time: 11/04/2019 7:32 [place] XR KNEE RIGHT (3 VIEWS)on Rod[place], [facility] Incoming Radiology Results From [facility] - 11/04/2019 2:47 PM EDT Patient Name: CHARLIE NGUYEN ---Diagnostic Radiology--- Exam Date/Time 11/04/2019 14:47:22 EDT Exam CR Knee 3 Views Right Ordering Physician DAVID FARRELL Accession Number [id number] CPT4 Codes 79053 () Reason For Exam right knee pain [...] No acute process. Report Dictated on Workstation: [facility] --- Final --- Dictated: 11/04/2019 2:14 pm Dictating Physician: MD CRANDALL RISA Signed Date and Time: 11/04/2019 2:15 pm Signed by: MD CRANDALL RISA Transcribed Date and Time: 11/04/2019 2:14 [place] Patient Name: CHARLIE NGUYEN ---Diagnostic Radiology--- Exam Date/Time 11/04/2019 14:47:22 EDT Exam CR Knee 3 Views Right Ordering Physician DAVID FARRELL Accession Number [id number] CPT4 Codes 35456 () Reason For Exam right knee pain [...] No acute process. Report Dictated on Workstation: Presdo --- Final --- Dictated: 11/04/2019 2:14 pm Dictating Physician: MD CRANDALL RISA Signed Date and Time: 11/04/2019 2:15 pm Signed by: MD CRANDALL RISA Transcribed Date and Time: 11/04/2019 2:14 [place] Basic Metabolic Panelon 09-30 Anion gap [Moles/Vol] 10 mmol/L [place] Calcium [Mass/Vol] 9.0 mg/dL 8.4 - 10. 4 mg/dL [place] Chloride [Moles/Vol] 93 mmol/L Low 98 - 10 7 mmol/L [place] CO2 [Moles/Vol] 36 mmol/L High 22 - 30 mmol/L [place] Creatinine [Mass/Vol] 0.63 mg/dL 0.52 - 1.25 mg/dL [place] EGFR IF NonAfrican [place] >90.0 >60 mL/min [place] Comment on above: KDIGO guidelines pro [...] MDRD (S/P/Bld) [Vol rate/Area] mL/min/{1.73_m2} >60 mL/min [place] Glucose [Mass/Vol] 115 mg/dL High 70 - 100 mg/dL [place] Potassium [Moles/Vol] 3.7 mmol/L 3.5 - 5.1 mmol/L [place] Sodium [Moles/Vol] 139 mmol/L 135 - 145 mmol/L [place] Urea nitrogen [Mass/Vol] 30 mg/dL High 7 - 20 mg/d L [place] CBC Auto Differentialon 09-30 Absolute Baso # 0.1 10*3/uL 0 - 0.2 10*3/uL [place] Absolute Neut # 5.8 10*3/uL 1.8 - 7 10*3/uL [place] Basophils/100 WBC (Bld) 0.9 % 0 - 2 % [place] Eosinophils (Bld) [#/Vol] 0.3 10*3/uL 0 - 0.5 10*3/uL [place] Eosinophils/100 WBC (Bld) 3.4 % 1 - 6 % [place] Erythrocyte distribution width (RBC) [Ratio] 15.5 % High 11.5 - 14.5 % [place] Granulocytes/100 WBC (Bld) 67.2 % 40 - 80 % [place] Hematocrit (Bld) [Volume fraction] 38.5 % 35 - 47 % [place] Hemoglobin (Bld) [Mass/Vol] 12.3 g/dL 11.7 - 16 g/dL [place] Interpretation and review of laboratory results Abnormal [place] Lymphocytes (Bld) [#/Vol] 1.5 10*3/uL 1 - 4.3 10*3/uL [place] Lymphocytes/100 WBC (Bld) 17.8 % Low 20 - 40 % [place] MCH (RBC) [Entitic mass] 30.7 pg 26 - 34 pg [place] MCHC (RBC) [Mass/Vol] 32.0 % 32 - 36 % [place] MCV (RBC) [Entitic vol] 96.0 fL 79 - 98 fL [place] Monocytes (Bld) [#/Vol] 0.9 10*3/uL High 0 - 0.8 10*3/uL [place] Monocytes/100 WBC (Bld) 10.7 % High 2 - 10 % [place] Platelet mean volume (Bld) [Entitic vol] 7.8 fL 7.4 - 10.4 fL [place] Platelets (Bld) [#/Vol] 333 10*3/uL 140 - 440 10*3/uL [place] RBC (Bld) [#/Vol] 4.01 10*6/uL 3.8 - 5.2 10*6/uL [place] WBC (Bld) [#/Vol] 8.7 10*3/uL 3.6 - 10.7 10*3/uL [place] Test Performed by [facility], [address] [place], [place] [address] [place] Calcium, Ionizedon 0 Interpretation and review of laboratory results Abnormal [place] Ionized Ca 4.30 mg/dL 4.3 - 5.2 mg/dL [place] pH (Bld) 7.47 [pH] [place] Test Performed by [facility], [address], [place], [place] [address] [place] Hepatic Function Panelon Albumin [Mass/Vol] 3.8 g/dL 3.5 - 5 g/dL [place] ALP [Catalytic activity/Vol] 107 U/L 38 - 126 U/L [place] ALT [Catalytic activity/Vol] 67 U/L High 0 - 34 U/L [place] Comment on above: The ALT test is perf ormed by an updated assay method. Please note that the reference intervals have been changed and are now sex specific. AST [Catalytic activity/Vol] 51 U/L High 15 - 46 U/L [place] Bilirubin Ql (U) 0.6 mg/dL 0.2 - 1.3 mg/dL [place] Bilirubin.direct [Mass/Vol] 0.0 mg/dL 0 - 0.3 mg/dL [place] Protein [Mass/Vol] 8.2 g/dL 6.3 - 8.2 g/dL [place] MAGNESIUMon 10-25-2019 Magnesium [Mass/Vol] 1.8 mg/dL 1.6 - 2 .3 mg/dL [place] Otheron 10-25-2019 Interpretation and review of laboratory results Abnormal [place] Test [facility], [address], [place], [place] [address] [place] Phosphoruson 10-25-2019 Phosphate [Mass/Vol] 5.3 mg/dL High 2.5 - 4 .5 mg/dL [place] Basic Metabolic Panelon 09-30 Anion gap [Moles/Vol] 9 mmol/L [place] Calcium [Mass/Vol] 8.5 mg/dL 8.4 - 10. 4 mg/dL [place] Chloride [Moles/Vol] 95 mmol/L Low 98 - 10 7 mmol/L [place] CO2 [Moles/Vol] 36 mmol/L High 22 - 30 mmol/L [place] Creatinine [Mass/Vol] 0.48 mg/dL Low 0.52 - 1.25 mg/dL [place] EGFR IF NonAfrican [place] >90.0 >60 mL/min [place] Comment on above: KDIGO guidelines pro [...] MDRD (S/P/Bld) [Vol rate/Area] mL/min/{1.73_m2} >60 mL/min [place] Glucose [Mass/Vol] 113 mg/dL High 70 - 100 mg/dL [place] Potassium [Moles/Vol] 3.6 mmol/L 3.5 - 5.1 mmol/L [place] Sodium [Moles/Vol] 139 mmol/L 135 - 145 mmol/L [place] Urea nitrogen [Mass/Vol] 26 mg/dL High 7 - 20 mg/d L [place] CBC Auto Differentialon 09-30 Absolute Baso # 0.1 10*3/uL 0 - 0.2 10*3/uL [place] Absolute Neut # 6.0 10*3/uL 1.8 - 7 10*3/uL [place] Basophils/100 WBC (Bld) 1.3 % 0 - 2 % [place] Eosinophils (Bld) [#/Vol] 0.3 10*3/uL 0 - 0.5 10*3/uL [place] Eosinophils/100 WBC (Bld) 3.3 % 1 - 6 % [place] Erythrocyte distribution width (RBC) [Ratio] 15.0 % High 11.5 - 14.5 % [place] Granulocytes/100 WBC (Bld) 68.0 % 40 - 80 % [place] Hematocrit (Bld) [Volume fraction] 36.4 % 35 - 47 % [place] Hemoglobin (Bld) [Mass/Vol] 11.9 g/dL 11.7 - 16 g/dL [place] Interpretation and review of laboratory results Abnormal [place] Lymphocytes (Bld) [#/Vol] 1.6 10*3/uL 1 - 4.3 10*3/uL [place] Lymphocytes/100 WBC (Bld) 17.8 % Low 20 - 40 % [place] MCH (RBC) [Entitic mass] 31.4 pg 26 - 34 pg [place] MCHC (RBC) [Mass/Vol] 32.7 % 32 - 36 % [place] MCV (RBC) [Entitic vol] 96.0 fL 79 - 98 fL [place] Monocytes (Bld) [#/Vol] 0.8 10*3/uL 0 - 0.8 10*3/uL [place] Monocytes/100 WBC (Bld) 9.6 % 2 - 10 % [place] Platelet mean volume (Bld) [Entitic vol] 7.6 fL 7.4 - 10.4 fL [place] Platelets (Bld) [#/Vol] 322 10*3/uL 140 - 440 10*3/uL [place] RBC (Bld) [#/Vol] 3.79 10*6/uL Low 3.8 - 5.2 10*6/uL [place] WBC (Bld) [#/Vol] 8.8 10*3/uL 3.6 - 10.7 10*3/uL [place] Test Performed by [facility], [address] [place], [place] [id number] [place] [address] Calcium, Ionizedon 0 Interpretation and review of laboratory results Abnormal [place] Ionized Ca 4.30 mg/dL 4.3 - 5.2 mg/dL [place] pH (Bld) 7.47 [pH] [place] Test Performed by [facility], [address] [place], [place] [address] [place] [address] Hepatic Function Panelon Albumin [Mass/Vol] 3.6 g/dL 3.5 - 5 g/dL [place] ALP [Catalytic activity/Vol] 102 U/L 38 - 126 U/L [place] ALT [Catalytic activity/Vol] 69 U/L High 0 - 34 U/L [place] Comment on above: The ALT test is perf ormed by an updated assay method. Please note that the reference intervals have been changed and are now sex specific. AST [Catalytic activity/Vol] 41 U/L 15 - 46 U/L [place] Bilirubin Ql (U) 0.6 mg/dL 0.2 - 1.3 mg/dL [place] Bilirubin.direct [Mass/Vol] 0.0 mg/dL 0 - 0.3 mg/dL [place] Protein [Mass/Vol] 7.7 g/dL 6.3 - 8.2 g/dL [place] MAGNESIUMon 10-24-2019 Magnesium [Mass/Vol] 2.0 mg/dL 1.6 - 2 .3 mg/dL [place] Otheron 10-24-2019 Interpretation and review of laboratory results Abnormal [place] Test Performed by [facility], [address], [place], [place] [address] [place] Phosphoruson 10-24-2019 Phosphate [Mass/Vol] 4.5 mg/dL 2.5 - 4 .5 mg/dL [place] XR CHEST PORTABLEon 10-24-19 20 [place], [facility] Incoming Radiology Results From [facility] - 10/24/2019 9:09 AM EDT Patient Name: CHARLIE NGUYEN ---Diagnostic Radiology--- Exam Date/Time 10/24/2019 08:53:24 EDT Exam CR Chest Portable Ordering Physician BENJAMIN SOSA JUDITH A. Accession Number [id number] CPT4 Codes 53363 () Reason For Exam respiratory failure Report [...] I Transcribed Date and Time: 10/24/2019 9:08 [place] Patient Name: CHARILE NGUYEN ---Diagnostic Radiology--- Exam Date/Time 10/24/2019 08:53:24 EDT Exam CR Chest Portable Ordering Physician BENJAMIN SOSA JUDITH A. Accession Number [id number] CPT4 Codes 31281 () Reason For Exam respiratory failure Report [...] I Transcribed Date and Time: 10/24/2019 9:08 [place] Basic Metabolic Panelon 05- Anion gap [Moles/Vol] 12 mmol/L [place] Calcium [Mass/Vol] 8.5 mg/dL 8.4 - 10. 4 mg/dL [place] Chloride [Moles/Vol] 97 mmol/L Low 98 - 10 7 mmol/L [place] CO2 [Moles/Vol] 35 mmol/L High 22 - 30 mmol/L [place] Creatinine [Mass/Vol] 0.53 mg/dL 0.52 - 1.25 mg/dL [place] EGFR IF NonAfrican [place] >90.0 >60 mL/min [place] Comment on above: KDIGO guidelines pro [...] MDRD (S/P/Bld) [Vol rate/Area] mL/min/{1.73_m2} >60 mL/min [place] Glucose [Mass/Vol] 104 mg/dL High 70 - 100 mg/dL [place] Potassium [Moles/Vol] 3.5 mmol/L 3.5 - 5.1 mmol/L [place] Sodium [Moles/Vol] 144 mmol/L 135 - 145 mmol/L [place] Urea nitrogen [Mass/Vol] 25 mg/dL High 7 - 20 mg/d L [place] CBC Auto Differentialon 05-2 Absolute Baso # 0.1 10*3/uL 0 - 0.2 10*3/uL [place] Absolute Neut # 7.0 10*3/uL 1.8 - 7 10*3/uL [place] Basophils/100 WBC (Bld) 1.0 % 0 - 2 % [place] Eosinophils (Bld) [#/Vol] 0.3 10*3/uL 0 - 0.5 10*3/uL [place] Eosinophils/100 WBC (Bld) 3.2 % 1 - 6 % [place] Erythrocyte distribution width (RBC) [Ratio] 15.1 % High 11.5 - 14.5 % [place] Granulocytes/100 WBC (Bld) 71.8 % 40 - 80 % [place] Hematocrit (Bld) [Volume fraction] 35.4 % 35 - 47 % [place] Hemoglobin (Bld) [Mass/Vol] 11.6 g/dL Low 11.7 - 16 g/dL [place] Interpretation and review of laboratory results Abnormal [place] Lymphocytes (Bld) [#/Vol] 1.5 10*3/uL 1 - 4.3 10*3/uL [place] Lymphocytes/100 WBC (Bld) 15.7 % Low 20 - 40 % [place] MCH (RBC) [Entitic mass] 31.3 pg 26 - 34 pg [place] MCHC (RBC) [Mass/Vol] 32.8 % 32 - 36 % [place] MCV (RBC) [Entitic vol] 95.6 fL 79 - 98 fL [place] Monocytes (Bld) [#/Vol] 0.8 10*3/uL 0 - 0.8 10*3/uL [place] Monocytes/100 WBC (Bld) 8.3 % 2 - 10 % [place] Platelet mean volume (Bld) [Entitic vol] 7.6 fL 7.4 - 10.4 fL [place] Platelets (Bld) [#/Vol] 343 10*3/uL 140 - 440 10*3/uL [place] RBC (Bld) [#/Vol] 3.71 10*6/uL Low 3.8 - 5.2 10*6/uL [place] WBC (Bld) [#/Vol] 9.8 10*3/uL 3.6 - 10.7 10*3/uL [place] Test Performed by [facility], [address] [place], [place] [address] [place] Calcium, Ionizedon 0 Ionized Ca 4.40 mg/dL 4.3 - 5.2 mg/dL [place] pH (Bld) 7.42 [pH] [place] Test Performed by [facility], [address] [place] [address] [place] Hepatic Function Panelon Albumin [Mass/Vol] 3.4 g/dL Low 3.5 - 5 g/dL [place] ALP [Catalytic activity/Vol] 106 U/L 38 - 126 U/L [place] ALT [Catalytic activity/Vol] 84 U/L High 0 - 34 U/L [place] Comment on above: The ALT test is perf ormed by an updated assay method. Please note that the reference intervals have been changed and are now sex specific. AST [Catalytic activity/Vol] 44 U/L 15 - 46 U/L [place] Bilirubin Ql (U) 0.6 mg/dL 0.2 - 1.3 mg/dL [place] Bilirubin.direct [Mass/Vol] 0.0 mg/dL 0 - 0.3 mg/dL [place] Protein [Mass/Vol] 7.6 g/dL 6.3 - 8.2 g/dL [place] MAGNESIUMon 10-23-2019 Magnesium [Mass/Vol] 1.4 mg/dL Low 1.6 - 2 .3 mg/dL [place] Otheron 10-23-2019 Interpretation and review of laboratory results Abnormal [place] Test Performed by [facility], [address] [place] [address] [place] [address] [place] POCT Arterialon 10-23-2019 Base Excess, Arterial 8.0 mmol/L High -3 - 3 mmol/L [place] HCO3, Arterial 32.9 mmol/L High 21 - 25 mmol/L [place] Interpretation and review of laboratory results Abnormal [place] Oxygen saturation in Blood 96.8 % 95 - 100 % [place] pCO2, Arterial 45.2 mm[Hg] High 35 - 45 mm[Hg] [place] pH, Arterial 7.470 [place] pO2, Arterial 83.8 mm[Hg] 80 - 100 mm[Hg] [place] Sodium [Moles/Vol] 40 mmol/L [place] Comment on above: Performed by CLIA ID : [id number] [place], [place] TCO2, Arterial 34.3 mmol/L High 23 - 27 mmol/L [place] Test Performed by [facility], [address] [place], [place] [address] [place] Base Excess, Arterial cnc Critically abnormal -3 - 3 mmol/L [place] HCO3, Arterial cnc Critically abnormal 21 - 25 mmol/L [place] Interpretation and review of laboratory results Abnormal [place] Oxygen saturation in Blood cnc Critically abnormal 95 - 100 % [place] pCO2, Arterial 44.8 mm[Hg] 35 - 45 mm[Hg] [place] pH, Arterial Failed iQC Critically abnormal [place] pO2, Arterial 80.1 mm[Hg] 80 - 100 mm[Hg] [place] Sodium [Moles/Vol] 40 mmol/L [place] Comment on above: Performed by CLIA ID : [id number] [place] TCO2, Arterial cnc Critically abnormal 23 - 27 mmol/L [place] Test Performed by [facility], [address] [place], [place] [address] [place] Phosphoruson 10-23-2019 Phosphate [Mass/Vol] 4.3 mg/dL 2.5 - 4 .5 mg/dL [place] XR CHEST PORTABLEon 10-23-19 20 Patient Name: CHARLIE NGUYEN ---Diagnostic Radiology--- Exam Date/Time 10/23/2019 06:36:40 EDT Exam CR Chest Portable Ordering Physician BENJAMIN SOSA JUDITH A. Accession Number [id number] CPT4 Codes 12172 () Reason For Exam respiratory failure Report [...] I Transcribed Date and Time: 10/23/2019 7:43 [place], [facility] Incoming Radiology Results From [facility] - 10/23/2019 7:44 AM EDT Patient Name: CHARLIE NGUYEN ---Diagnostic Radiology--- Exam Date/Time 10/23/2019 06:36:40 EDT Exam CR Chest Portable Ordering Physician BENJAMIN SOSA JUDITH A. Accession Number [id number] CPT4 Codes 65961 () Reason For Exam respiratory failure Report [...] I Transcribed Date and Time: 10/23/2019 7:43 [place] Basic Metabolic Panelon 09-30 Anion gap [Moles/Vol] 8 mmol/L [place] Calcium [Mass/Vol] 8.2 mg/dL Low 8.4 - 10. 4 mg/dL [place] Chloride [Moles/Vol] 104 mmol/L 98 - 10 7 mmol/L [place] CO2 [Moles/Vol] 30 mmol/L 22 - 30 mmol/L [place] Creatinine [Mass/Vol] 0.39 mg/dL Low 0.52 - 1.25 mg/dL [place] EGFR IF NonAfrican [place] >90.0 >60 mL/min [place] Comment on above: KDIGO guidelines pro [...] MDRD (S/P/Bld) [Vol rate/Area] mL/min/{1.73_m2} >60 mL/min [place] Glucose [Mass/Vol] 96 mg/dL 70 - 100 mg/dL [place] Potassium [Moles/Vol] 3.2 mmol/L Low 3.5 - 5.1 mmol/L [place] Sodium [Moles/Vol] 142 mmol/L 135 - 145 mmol/L [place] Urea nitrogen [Mass/Vol] 15 mg/dL 7 - 20 mg/d L [place] CBC Auto Differentialon 05-2 Absolute Baso # 0.1 10*3/uL 0 - 0.2 10*3/uL [place] Absolute Neut # 6.9 10*3/uL 1.8 - 7 10*3/uL [place] Basophils/100 WBC (Bld) 0.7 % 0 - 2 % [place] Eosinophils (Bld) [#/Vol] 0.3 10*3/uL 0 - 0.5 10*3/uL [place] Eosinophils/100 WBC (Bld) 3.7 % 1 - 6 % [place] Erythrocyte distribution width (RBC) [Ratio] 15.2 % High 11.5 - 14.5 % [place] Granulocytes/100 WBC (Bld) 74.2 % 40 - 80 % [place] Hematocrit (Bld) [Volume fraction] 33.4 % Low 35 - 47 % [place] Hemoglobin (Bld) [Mass/Vol] 10.9 g/dL Low 11.7 - 16 g/dL [place] Interpretation and review of laboratory results Abnormal [place] Lymphocytes (Bld) [#/Vol] 1.4 10*3/uL 1 - 4.3 10*3/uL [place] Lymphocytes/100 WBC (Bld) 14.9 % Low 20 - 40 % [place] MCH (RBC) [Entitic mass] 31.7 pg 26 - 34 pg [place] MCHC (RBC) [Mass/Vol] 32.7 % 32 - 36 % [place] MCV (RBC) [Entitic vol] 96.8 fL 79 - 98 fL [place] Monocytes (Bld) [#/Vol] 0.6 10*3/uL 0 - 0.8 10*3/uL [place] Monocytes/100 WBC (Bld) 6.5 % 2 - 10 % [place] Platelet mean volume (Bld) [Entitic vol] 7.5 fL 7.4 - 10.4 fL [place] Platelets (Bld) [#/Vol] 341 10*3/uL 140 - 440 10*3/uL [place] RBC (Bld) [#/Vol] 3.44 10*6/uL Low 3.8 - 5.2 10*6/uL [place] WBC (Bld) [#/Vol] 9.2 10*3/uL 3.6 - 10.7 10*3/uL [place] Test Performed by [facility], [address] [place], [place] [address] [place] Calcium, Ionizedon 0 Ionized Ca 4.40 mg/dL 4.3 - 5.2 mg/dL [place] pH (Bld) 7.36 [pH] [place] Test Performed by [facility], [address] [place], [place] [address] [place] Hepatic Function Panelon Albumin [Mass/Vol] 3.1 g/dL Low 3.5 - 5 g/dL [place] ALP [Catalytic activity/Vol] 97 U/L 38 - 126 U/L [place] ALT [Catalytic activity/Vol] 100 U/L High 0 - 34 U/L [place] Comment on above: The ALT test is perf ormed by an updated assay method. Please note that the reference intervals have been changed and are now sex specific. AST [Catalytic activity/Vol] 56 U/L High 15 - 46 U/L [place] Bilirubin Ql (U) 0.5 mg/dL 0.2 - 1.3 mg/dL [place] Bilirubin.direct [Mass/Vol] 0.0 mg/dL 0 - 0.3 mg/dL [place] Protein [Mass/Vol] 7.0 g/dL 6.3 - 8.2 g/dL [place] MAGNESIUMon 10-22-2019 Magnesium [Mass/Vol] 1.6 mg/dL 1.6 - 2 .3 mg/dL [place] Otheron 10-22-2019 Interpretation and review of laboratory results Abnormal [place] Test Performed by [facility], [address] [place], [place], [place] [address] [place] POCT Arterialon 10-22-2019 Base Excess, Arterial 4.2 mmol/L High -3 - 3 mmol/L [place] HCO3, Arterial 29.9 mmol/L High 21 - 25 mmol/L [place] Interpretation and review of laboratory results Abnormal [place] Oxygen saturation in Blood 96.4 % 95 - 100 % [place] pCO2, Arterial 48.1 mm[Hg] High 35 - 45 mm[Hg] [place] pH, Arterial 7.401 [place] pO2, Arterial 86.4 mm[Hg] 80 - 100 mm[Hg] [place] TCO2, Arterial 31.3 mmol/L High 23 - 27 mmol/L [place] Comment on above: Performed by CLIA ID : [id number] [place], [place] Test Performed by [facility], [address] [place] [address] [place] Phosphoruson 10-22-2019 Phosphate [Mass/Vol] 3.6 mg/dL 2.5 - 4 .5 mg/dL [place] XR CHEST PORTABLEon 10-22-19 20 [place], [facility] Incoming Radiology Results From [facility] - 10/22/2019 6:46 AM EDT Patient Name: CHARLIE NGUYEN ---Diagnostic Radiology--- Exam Date/Time 10/22/2019 06:14:22 EDT Exam CR Chest Portable Ordering Physician BENJAMIN SOSA JUDITH A. Accession Number [id number] CPT4 Codes 26893 () Reason For Exam respiratory failure Report [...] ALFRED Transcribed Date and Time: 10/22/2019 6:46 [place] Patient Name: CHARLIE NGUYEN ---Diagnostic Radiology--- Exam Date/Time 10/22/2019 06:14:22 EDT Exam CR Chest Portable Ordering Physician BENJAMIN SOSA JUDITH A. Accession Number [id number] CPT4 Codes 88961 () Reason For Exam respiratory failure Report [...] Chronic interstitial changes. Report Dictated on Workstation: [id number] --- Final --- Dictating Physician: DO DICKEY ALFRED Signed Date and Time: 10/22/2019 6:45 am Signed by: DO DICKEY ALFRED Transcribed Date and Time: 10/22/2019 6:46 [place] Basic Metabolic Panelon 09-30 Anion gap [Moles/Vol] 11 mmol/L [place] Calcium [Mass/Vol] 8.3 mg/dL Low 8.4 - 10. 4 mg/dL [place] Chloride [Moles/Vol] 107 mmol/L 98 - 10 7 mmol/L [place] CO2 [Moles/Vol] 25 mmol/L 22 - 30 mmol/L [place] Creatinine [Mass/Vol] 0.36 mg/dL Low 0.52 - 1.25 mg/dL [place] EGFR IF NonAfrican [place] >90.0 >60 mL/min [place] Comment on above: KDIGO guidelines pro [...] MDRD (S/P/Bld) [Vol rate/Area] mL/min/{1.73_m2} >60 mL/min [place] Glucose [Mass/Vol] 98 mg/dL 70 - 100 mg/dL [place] Potassium [Moles/Vol] 2.8 mmol/L Low 3.5 - 5.1 mmol/L [place] Sodium [Moles/Vol] 143 mmol/L 135 - 145 mmol/L [place] Urea nitrogen [Mass/Vol] 17 mg/dL 7 - 20 mg/d L [place] CBC Auto Differentialon - Absolute Baso # 0.1 10*3/uL 0 - 0.2 10*3/uL [place] Absolute Neut # 8.1 10*3/uL High 1.8 - 7 10*3/uL [place] Basophils/100 WBC (Bld) 0.8 % 0 - 2 % [place] Eosinophils (Bld) [#/Vol] 0.3 10*3/uL 0 - 0.5 10*3/uL [place] Eosinophils/100 WBC (Bld) 2.9 % 1 - 6 % [place] Erythrocyte distribution width (RBC) [Ratio] 15.2 % High 11.5 - 14.5 % [place] Granulocytes/100 WBC (Bld) 76.9 % 40 - 80 % [place] Hematocrit (Bld) [Volume fraction] 33.5 % Low 35 - 47 % [place] Hemoglobin (Bld) [Mass/Vol] 11.1 g/dL Low 11.7 - 16 g/dL [place] Interpretation and review of laboratory results Abnormal [place] Lymphocytes (Bld) [#/Vol] 1.3 10*3/uL 1 - 4.3 10*3/uL [place] Lymphocytes/100 WBC (Bld) 11.9 % Low 20 - 40 % [place] MCH (RBC) [Entitic mass] 32.0 pg 26 - 34 pg [place] MCHC (RBC) [Mass/Vol] 33.1 % 32 - 36 % [place] MCV (RBC) [Entitic vol] 96.5 fL 79 - 98 fL [place] Monocytes (Bld) [#/Vol] 0.8 10*3/uL 0 - 0.8 10*3/uL [place] Monocytes/100 WBC (Bld) 7.5 % 2 - 10 % [place] Platelet mean volume (Bld) [Entitic vol] 7.8 fL 7.4 - 10.4 fL [place] Platelets (Bld) [#/Vol] 366 10*3/uL 140 - 440 10*3/uL [place] RBC (Bld) [#/Vol] 3.47 10*6/uL Low 3.8 - 5.2 10*6/uL [place] WBC (Bld) [#/Vol] 10.6 10*3/uL 3.6 - 10.7 10*3/uL [place] Test Performed by [facility], [address], [place] [id number] [place] [address] Hepatic Function Panelon Albumin [Mass/Vol] 3.4 g/dL Low 3.5 - 5 g/dL [place] ALP [Catalytic activity/Vol] 107 U/L 38 - 126 U/L [place] ALT [Catalytic activity/Vol] 126 U/L High 0 - 34 U/L [place] Comment on above: The ALT test is perf ormed by an updated assay method. Please note that the reference intervals have been changed and are now sex specific. AST [Catalytic activity/Vol] 72 U/L High 15 - 46 U/L [place] Bilirubin Ql (U) 0.7 mg/dL 0.2 - 1.3 mg/dL [place] Bilirubin.direct [Mass/Vol] 0.0 mg/dL 0 - 0.3 mg/dL [place] Protein [Mass/Vol] 7.6 g/dL 6.3 - 8.2 g/dL [place] MRI BRAIN W WO CONTRASTon Patient Name: CHARLIE NGUYEN ---MRI--- Exam Date/Time 10/21/2019 11:17:35 EDT Exam MRI Brain w/ + w/o Contrast Ordering Physician TAMARA GILL Accession Number [id number] CPT4 Codes 57800 () Reason For Exam new onset seizures [...] JEFFREY Transcribed Date and Time: 10/21/2019 2:08 [place], [facility] Incoming Radiology Results From [facility] - 10/21/2019 2:09 PM EDT Patient Name: CHARLIE NGUYEN ---MRI--- Exam Date/Time 10/21/2019 11:17:35 EDT Exam MRI Brain w/ + w/o Contrast Ordering Physician TAMARA GILL Accession Number [id number] CPT4 Codes 83639 () Reason For Exam new onset seizures [...] JEFFREY Transcribed Date and Time: 10/21/2019 2:08 [employer] Otheron 10-21-2019 Interpretation and review of laboratory results Abnormal [facility] [place] Test Performed by [facility], [address], [place], [place] [address] [facility], [place] POCT Arterialon 10-21-2019 Base Excess, Arterial 2.8 mmol/L -3 - 3 mmol/L [facility], [place] HCO3, Arterial 27.4 mmol/L High 21 - 25 mmol/L [facility] [place], [place] Interpretation and review of laboratory results Abnormal [facility], [place] Oxygen saturation in Blood 93.7 % Low 95 - 100 % [facility], [place] pCO2, Arterial 41.0 mm[Hg] 35 - 45 mm[Hg] [facility], [place] pH, Arterial 7.433 [facility], [place] pO2, Arterial 67.7 mm[Hg] Low 80 - 100 mm[Hg] [facility], [place] Sodium [Moles/Vol] 40 mmol/L [facility], [place] Comment on above: Performed by [facility]IA ID : [id number] [place], [place] TCO2, Arterial 28.7 mmol/L High 23 - 27 mmol/L [facility], [place] Test Performed by [facility] [employer] [facility], [address], [place], [place] [address] [facility], [place] XA [facility] [place], [facility] Incoming Radiology Results From [facility] - 10/21/2019 3:26 PM EDT Patient Name: CHARLIE NGUYEN ---Special Procedures--- Exam Date/Time 10/21/2019 15:06:31 EDT Exam XA Special Angiography Procedure Ordering Physician DES ROMERO Accession Number [id number] Reason For Exam PICC limited access Report [...] KEVIN Transcribed Date and Time: 10/21/2019 3:26 [place], [place] Patient Name: CHARLIE NGUYEN ---Special Procedures--- Exam Date/Time 10/21/2019 15:06:31 EDT Exam XA Special Angiography Procedure Ordering Physician DES ROMERO Accession Number [id number] Reason For Exam PICC limited access Report [...] KEVIN Transcribed Date and Time: 10/21/2019 3:26 [place] AMMONIAon 10-20-2019 Ammonia (P) [Mass/Vol] ug/dL 9 - 3 0 umol/L [place] Test Performed by [facility], [address] CBC Auto Differentialon 09-30 Absolute Baso # 0.1 10*3/uL 0 - 0.2 10*3/uL [place] Absolute Neut # 10.2 10*3/uL High 1.8 - 7 10*3/uL [place] Basophils/100 WBC (Bld) 0.6 % 0 - 2 % [place] Eosinophils (Bld) [#/Vol] 0.1 10*3/uL 0 - 0.5 10*3/uL [place] Eosinophils/100 WBC (Bld) 1.1 % 1 - 6 % [place] Erythrocyte distribution width (RBC) [Ratio] 15.2 % High 11.5 - 14.5 % [place] Granulocytes/100 WBC (Bld) 85.0 % High 40 - 80 % [place] Hematocrit (Bld) [Volume fraction] 35.9 % 35 - 47 % [place] Hemoglobin (Bld) [Mass/Vol] 11.6 g/dL Low 11.7 - 16 g/dL [place] Interpretation and review of laboratory results Abnormal [place] Lymphocytes (Bld) [#/Vol] 1.0 10*3/uL 1 - 4.3 10*3/uL [place] Lymphocytes/100 WBC (Bld) 7.9 % Low 20 - 40 % [place] MCH (RBC) [Entitic mass] 30.8 pg 26 - 34 pg [place] MCHC (RBC) [Mass/Vol] 32.2 % 32 - 36 % [place] MCV (RBC) [Entitic vol] 95.8 fL 79 - 98 fL [place] Monocytes (Bld) [#/Vol] 0.7 10*3/uL 0 - 0.8 10*3/uL [place] Monocytes/100 WBC (Bld) 5.4 % 2 - 10 % [place] Platelet mean volume (Bld) [Entitic vol] 7.7 fL 7.4 - 10.4 fL [place] Platelets (Bld) [#/Vol] 411 10*3/uL 140 - 440 10*3/uL [place] RBC (Bld) [#/Vol] 3.75 10*6/uL Low 3.8 - 5.2 10*6/uL [place] WBC (Bld) [#/Vol] 12.0 10*3/uL High 3.6 - 10.7 10*3/uL [place] Test [facility] by [facility], [address], [place], [place] [address] [place] COVID-19on 10-20-2019 SARS-CoV-2 Not Detected Expected Result: Not Detected _ Real-time, RT-PCR performed on the [employer] System by the [facility]. Negative results do not preclude SARS-CoV-2 infection and should not be used as the sole basis for treatment or other patient management decisions. This assay was developed by [email or web address] and distributed under an Emergency Use Authorization (EUA) granted by the FDA for the qualitative detection of SARS-CoV-2 nucleic acid. [place] Test Performed by [facility], [address] [place] [id number] Specimen Source Comment:Nasopharyngea l Swab [facility], [place] CTA Chest W WO Contraston Patient Name: CHARLIE NGUYEN ---CT--- Exam Date/Time 10/20/2019 16:55:55 EDT Exam CTA Chest w/ + w/o Contrast Ordering Physician DES ROMERO Accession Number [id number] CPT4 Codes 47968 (), Q9967 (CT ISOVUE 370MG/[id number]& ML&1) Reason For Exam Recurrent hypoxia Report Reasons for examination: Recurrent hypoxia, drug overdose. CT scan of the chest were performed with bolus contrast and high resolution scans for CT pulmonary angiographic study, with images post-processed by myself on [email or web address] workstation, with 3D - volume rendered CT [...] WILLIAM Transcribed Date and Time: 10/20/2019 6:04 [facility] [place], [place], [facility] Incoming Radiology Results From [facility] - 10/20/2019 6:04 PM EDT Patient Name: CHARLIE NGUYEN ---CT--- Exam Date/Time 10/20/2019 16:55:55 EDT Exam CTA Chest w/ + w/o Contrast Ordering Physician DES ROMERO Accession Number [id number] CPT4 Codes 40926 (), Q9967 (CT ISOVUE 370MG/[id number]& ML&1) Reason For Exam Recurrent hypoxia Report Reasons for examination: Recurrent hypoxia, drug overdose. CT scan of the chest were performed with bolus contrast and high resolution scans for CT pulmonary angiographic study, with images post-processed by myself on [employer] workstation, with 3D - volume rendered CT [...] WILLIAM Transcribed Date and Time: 10/20/2019 6:04 [place] Comprehensive Metabolic Pane rafiq 10-20-2019 Albumin [Mass/Vol] 3.4 g/dL Low 3.5 - 5 g/dL [place] ALP [Catalytic activity/Vol] 122 U/L 38 - 126 U/L [place] ALT [Catalytic activity/Vol] 134 U/L High 0 - 34 U/L [place] Comment on above: The ALT test is perf ormed by an updated assay method. Please note that the reference intervals have been changed and are now sex specific. Anion gap [Moles/Vol] 11 mmol/L [place] AST [Catalytic activity/Vol] 79 U/L High 15 - 46 U/L [place] Bilirubin Ql (U) 0.5 mg/dL 0.2 - 1.3 mg/dL [place] Calcium [Mass/Vol] 8.4 mg/dL 8.4 - 10. 4 mg/dL [place] Chloride [Moles/Vol] 106 mmol/L 98 - 10 7 mmol/L [place] CO2 [Moles/Vol] 26 mmol/L 22 - 30 mmol/L [place] Creatinine [Mass/Vol] 0.45 mg/dL Low 0.52 - 1.25 mg/dL [place] EGFR IF NonAfrican [place] >90.0 >60 mL/min [place] Comment on above: KDIGO guidelines pro [...] MDRD (S/P/Bld) [Vol rate/Area] mL/min/{1.73_m2} >60 mL/min [place] Glucose [Mass/Vol] 134 mg/dL High 70 - 100 mg/dL [place] Interpretation and review of laboratory results Abnormal [place] Potassium [Moles/Vol] 3.0 mmol/L Low 3.5 - 5.1 mmol/L [place] Protein [Mass/Vol] 7.5 g/dL 6.3 - 8.2 g/dL [place] Sodium [Moles/Vol] 143 mmol/L 135 - 145 mmol/L [place] Urea nitrogen [Mass/Vol] 21 mg/dL High 7 - 20 mg/d L [place] Test Performed by [facility], [address] [place] [address] EEG REPORTon 10-20-2019 Torin Salazar MD - [...] EEG/VIDEO RECORDING (2:24 P.M. - 2:48 P.M.) MINING ENGINEER: TIFF EEG CLINICAL INDICATION: Seizure-like activity. NEUROLOGICAL HISTORY/DIAGNOSIS: A 64-year-old woman with seizure-like activity, drug overdose, restlessness and confusion. MEDICAL HISTORY: Migraine headaches and metabolic encephalopathy. CURRENT PERTINENT MEDICATIONS: Haldol, Lopressor, and Protonix. MENTAL STATUS PRESENTATION: Awake, verbal. The patient is restless, refusing to allow for the EEG. Not allowing the sample prep technician to properly work for the electrodes [...] cooperative, may be helpful if clinically indicated. [facility] Job ID: [id number] DOD:10/20/2019 06:32 P SLM/doreenk DOT:10/20/2019 07:52 P Job Number: [id number] Document Number: [id number] ###### cc: Rajendra Kim MD [facility] [address] [place] [id number] Des Romero MD [address] [place] [id number] [place] [address] POCT Arterialon 10-20-2019 Base Excess, Arterial 1.5 mmol/L -3 - 3 mmol/L [place] HCO3, Arterial 27.3 mmol/L High 21 - 25 mmol/L [place] Interpretation and review of laboratory results Abnormal [place] Oxygen saturation in Blood 99.2 % 95 - 100 % [place] pCO2, Arterial 46.3 mm[Hg] High 35 - 45 mm[Hg] [place] pH, Arterial 7.377 [place] pO2, Arterial 149.2 mm[Hg] High 80 - 100 mm[Hg] [place] Sodium [Moles/Vol] 100 mmol/L [place] Comment on above: Performed by CLIA ID : [id number] [place], [place] TCO2, Arterial 28.7 mmol/L High 23 - 27 mmol/L [place] Test Performed by [facility], [address] Base Excess, Arterial 0.3 mmol/L -3 - 3 mmol/L [place] HCO3, Arterial 25.4 mmol/L High 21 - 25 mmol/L [place] Interpretation and review of laboratory results Abnormal [place] Oxygen saturation in Blood 98.1 % 95 - 100 % [place] pCO2, Arterial 42.0 mm[Hg] 35 - 45 mm[Hg] [place] pH, Arterial 7.390 [place] pO2, Arterial 107.0 mm[Hg] High 80 - 100 mm[Hg] [place] Sodium [Moles/Vol] 15 mmol/L [place] Comment on above: Performed by CLIA ID : [id number] [place], [place] TCO2, Arterial 26.7 mmol/L 23 - 27 mmol/L [place] Test Performed by [facility], [address] POCT Glucoseon 10-20-2019 Glucose [Mass/Vol] 130 mg/dL High 70 - 100 mg/dL [place] Comment on above: Test performed by ucose meter. Results may be 10%-15% lower than serum/plasma values. (CLIA ID [id number]) Interpretation and review of laboratory results Abnormal [place] Test Performed by [facility], [address] Procalcitoninon 10-20-2019 Procalcitonin <0.10 <0.10 ng/mL [place] Sodium [Moles/Vol] See Below [place] Comment on above: PCT <0.50 = Low risk of severe sepsis and/or septic shock. PCT >2.00 = High risk of severe sepsis and/or septic shock. Test Performed by [facility] [employer] [facility], [address] [place] [address] [place] Troponinon 10-20-2019 Troponin I.cardiac [Mass/Vol] ng/mL 0 - 0.034 ng/mL [place] Comment on above: . Test Performed by [facility] [employer] [facility], [address], [place], [place] [address] [place] XR CHEST PORTABLEon 10-20-19 20 Rodolfo, [facility] Incoming Radiology Results From [facility] - 10/20/2019 2:48 PM EDT Patient Name: CHARLIE NGUYEN ---Diagnostic Radiology--- Exam Date/Time 10/20/2019 12:59:00 EDT Exam CR Chest Portable Ordering Physician DES ROMERO Accession Number [id number] CPT4 Codes 48957 () Reason For Exam SOB Report PORTABLE [...] DIANE Transcribed Date and Time: 10/20/2019 2:47 [place] Patient Name: CHARLIE NGUYEN ---Diagnostic Radiology--- Exam Date/Time 10/20/2019 12:59:00 EDT Exam CR Chest Portable Ordering Physician DES ROMERO Accession Number [id number] CPT4 Codes 04756 () Reason For Exam SOB Report PORTABLE [...] DIANE Transcribed Date and Time: 10/20/2019 2:47 [place] Basic Metabolic Panelon 09-30 Anion gap [Moles/Vol] 10 mmol/L [place] Calcium [Mass/Vol] 8.0 mg/dL Low 8.4 - 10. 4 mg/dL [place] Chloride [Moles/Vol] 108 mmol/L High 98 - 10 7 mmol/L [place] CO2 [Moles/Vol] 24 mmol/L 22 - 30 mmol/L [place] Creatinine [Mass/Vol] 0.37 mg/dL Low 0.52 - 1.25 mg/dL [place] EGFR IF NonAfrican [place] >90.0 >60 mL/min [place] Comment on above: KDIGO guidelines pro [...] MDRD (S/P/Bld) [Vol rate/Area] mL/min/{1.73_m2} >60 mL/min [place] Glucose [Mass/Vol] 90 mg/dL 70 - 100 mg/dL [place] Potassium [Moles/Vol] 3.2 mmol/L Low 3.5 - 5.1 mmol/L [place] Sodium [Moles/Vol] 142 mmol/L 135 - 145 mmol/L [place] Urea nitrogen [Mass/Vol] 21 mg/dL High 7 - 20 mg/d L [place] CBC Auto Differentialon 05-2 0-2020 Absolute Baso # 0.1 10*3/uL 0 - 0.2 10*3/uL [place] Absolute Neut # 8.2 10*3/uL High 1.8 - 7 10*3/uL [place] Basophils/100 WBC (Bld) 1.2 % 0 - 2 % [place] Eosinophils (Bld) [#/Vol] 0.3 10*3/uL 0 - 0.5 10*3/uL [place] Eosinophils/100 WBC (Bld) 2.7 % 1 - 6 % [place] Erythrocyte distribution width (RBC) [Ratio] 15.5 % High 11.5 - 14.5 % [place] Granulocytes/100 WBC (Bld) 75.9 % 40 - 80 % [place] Hematocrit (Bld) [Volume fraction] 35.7 % 35 - 47 % [place] Hemoglobin (Bld) [Mass/Vol] 11.6 g/dL Low 11.7 - 16 g/dL [place] Interpretation and review of laboratory results Abnormal [place] Lymphocytes (Bld) [#/Vol] 1.4 10*3/uL 1 - 4.3 10*3/uL [place] Lymphocytes/100 WBC (Bld) 12.7 % Low 20 - 40 % [place] MCH (RBC) [Entitic mass] 32.0 pg 26 - 34 pg [place] MCHC (RBC) [Mass/Vol] 32.4 % 32 - 36 % [place] MCV (RBC) [Entitic vol] 98.6 fL High 79 - 98 fL [place] Monocytes (Bld) [#/Vol] 0.8 10*3/uL 0 - 0.8 10*3/uL [place] Monocytes/100 WBC (Bld) 7.5 % 2 - 10 % M [place] Platelet mean volume (Bld) [Entitic vol] 7.4 fL 7.4 - 10.4 fL [place] Platelets (Bld) [#/Vol] 378 10*3/uL 140 - 440 10*3/uL [place] RBC (Bld) [#/Vol] 3.61 10*6/uL Low 3.8 - 5.2 10*6/uL [place] WBC (Bld) [#/Vol] 10.8 10*3/uL High 3.6 - 10.7 10*3/uL [place] Test Performed by [facility], [address] [place], [address] Hepatic Function Panelon Albumin [Mass/Vol] 3.4 g/dL Low 3.5 - 5 g/dL [place] ALP [Catalytic activity/Vol] 106 U/L 38 - 126 U/L [place] ALT [Catalytic activity/Vol] 156 U/L High 0 - 34 U/L [place] Comment on above: The ALT test is perf ormed by an updated assay method. Please note that the reference intervals have been changed and are now sex specific. AST [Catalytic activity/Vol] 103 U/L High 15 - 46 U/L [place] Bilirubin Ql (U) 0.7 mg/dL 0.2 - 1.3 mg/dL [place] Bilirubin.direct [Mass/Vol] 0.0 mg/dL 0 - 0.3 mg/dL [place] Protein [Mass/Vol] 7.2 g/dL 6.3 - 8.2 g/dL [place] Otheron 10-19-2019 Interpretation and review of laboratory results Abnormal [place] Test Performed by [facility], [address] [place], [place] [id number] [place] [address] POCT Glucoseon 10-19-2019 Glucose [Mass/Vol] 88 mg/dL 70 - 100 mg/dL [place] Comment on above: Test performed by gl ucose meter. Results may be 10%-15% lower than serum/plasma values. (CLIA ID [id number]) Test Performed by [facility], [address] [place], [place] [address] [place] Glucose [Mass/Vol] 93 mg/dL 70 - 100 mg/dL [place] Comment on above: Test performed by gl ucose meter. Results may be 10%-15% lower than serum/plasma values. (CLIA ID [id number]) Test Performed by [facility], [address] [place], [place] [id number] [place] [address] Basic Metabolic Panelon 09-29 Anion gap [Moles/Vol] 12 mmol/L [place] Calcium [Mass/Vol] 8.4 mg/dL 8.4 - 10. 4 mg/dL [place] Chloride [Moles/Vol] 107 mmol/L 98 - 10 7 mmol/L [place] CO2 [Moles/Vol] 23 mmol/L 22 - 30 mmol/L [place] Creatinine [Mass/Vol] 0.48 mg/dL Low 0.52 - 1.25 mg/dL [place] EGFR IF NonAfrican [place] >90.0 >60 mL/min [place] Comment on above: KDIGO guidelines pro [...] MDRD (S/P/Bld) [Vol rate/Area] mL/min/{1.73_m2} >60 mL/min [place] Glucose [Mass/Vol] 120 mg/dL High 70 - 100 mg/dL [place] Potassium [Moles/Vol] 3.1 mmol/L Low 3.5 - 5.1 mmol/L [place] Sodium [Moles/Vol] 141 mmol/L 135 - 145 mmol/L [place] Urea nitrogen [Mass/Vol] 23 mg/dL High 7 - 20 mg/d L [place] CBC Auto Differentialon 05- Absolute Baso # 0.1 10*3/uL 0 - 0.2 10*3/uL [place] Absolute Neut # 9.6 10*3/uL High 1.8 - 7 10*3/uL [place] Basophils/100 WBC (Bld) 1.0 % 0 - 2 % M [place] Eosinophils (Bld) [#/Vol] 0.2 10*3/uL 0 - 0.5 10*3/uL [place] Eosinophils/100 WBC (Bld) 1.8 % 1 - 6 % [place] Erythrocyte distribution width (RBC) [Ratio] 15.6 % High 11.5 - 14.5 % [place] Granulocytes/100 WBC (Bld) 74.8 % 40 - 80 % [place] Hematocrit (Bld) [Volume fraction] 35.7 % 35 - 47 % [place] Hemoglobin (Bld) [Mass/Vol] 11.8 g/dL 11.7 - 16 g/dL [place] Interpretation and review of laboratory results Abnormal [place] Lymphocytes (Bld) [#/Vol] 2.0 10*3/uL 1 - 4.3 10*3/uL [place] Lymphocytes/100 WBC (Bld) 15.2 % Low 20 - 40 % [place] MCH (RBC) [Entitic mass] 31.8 pg 26 - 34 pg [place] MCHC (RBC) [Mass/Vol] 33.0 % 32 - 36 % [place] MCV (RBC) [Entitic vol] 96.4 fL 79 - 98 fL [place] Monocytes (Bld) [#/Vol] 0.9 10*3/uL High 0 - 0.8 10*3/uL [place] Monocytes/100 WBC (Bld) 7.2 % 2 - 10 % [place] Platelet mean volume (Bld) [Entitic vol] 7.7 fL 7.4 - 10.4 fL [place] Platelets (Bld) [#/Vol] 459 10*3/uL High 140 - 440 10*3/uL [place] RBC (Bld) [#/Vol] 3.70 10*6/uL Low 3.8 - 5.2 10*6/uL [place] WBC (Bld) [#/Vol] 12.8 10*3/uL High 3.6 - 10.7 10*3/uL [place] Test Performed by [facility] [employer] [facility], [address] [place] [id number] [place] [address] Hepatic Function Panelon Albumin [Mass/Vol] 3.6 g/dL 3.5 - 5 g/dL [place] ALP [Catalytic activity/Vol] 126 U/L 38 - 126 U/L [place] ALT [Catalytic activity/Vol] 165 U/L High 0 - 34 U/L [place] Comment on above: The ALT test is perf ormed by an updated assay method. Please note that the reference intervals have been changed and are now sex specific. AST [Catalytic activity/Vol] 110 U/L High 15 - 46 U/L [place] Bilirubin Ql (U) 0.7 mg/dL 0.2 - 1.3 mg/dL [place] Bilirubin.direct [Mass/Vol] 0.0 mg/dL 0 - 0.3 mg/dL [place] Protein [Mass/Vol] 7.6 g/dL 6.3 - 8.2 g/dL [facility], [place] Otheron 10-18-2019 Interpretation and review of laboratory results Abnormal [place] Test Performed by [employer] [facility], [address], [place], [place] [id number] [place] [address], [place] POCT Arterialon 10-18-2019 Base Excess, Arterial -0.3 mmol/L -3 - 3 mmol/L [place] HCO3, Arterial 24.8 mmol/L 21 - 25 mmol/L [place] Oxygen saturation in Blood 97.0 % 95 - 100 % [place] pCO2, Arterial 41.1 mm[Hg] 35 - 45 mm[Hg] [place] pH, Arterial 7.388 [place] pO2, Arterial 92.2 mm[Hg] 80 - 100 mm[Hg] [place] Sodium [Moles/Vol] 80 mmol/L [place] Comment on above: Performed by CLIA ID : [id number] [place], [place] TCO2, Arterial 26 mmol/L 23 - 27 mmol/L [place] Test Performed by [facility], [address] [place], [place], [place] [id number] [place] [address] POCT Glucoseon 10-18-2019 Glucose [Mass/Vol] 110 mg/dL High 70 - 100 mg/dL [place] Comment on above: Test performed by ucose meter. Results may be 10%-15% lower than serum/plasma values. (CLIA ID [id number]) Interpretation and review of laboratory results Abnormal [place] Test Performed by [facility], [address] [place], [place], [place] [id number] [place] [address] XR CHEST PORTABLEon 10-18-19 20 [place], [facility] Incoming Radiology Results From [facility] - 10/18/2019 5:57 PM EDT Patient Name: CHARLIE NGUYEN ---Diagnostic Radiology--- Exam Date/Time 10/18/2019 17:41:40 EDT Exam CR Chest Portable Ordering Physician Gene CORONA, RUDDY TRACY Accession Number [id number] CPT4 Codes 21758 () Reason For Exam sob Report Portable [...] structures are intact. Report Dictated on Workstation: [employer] --- Final --- Dictating Physician: MD CRANDALL RISA Signed Date and Time: 10/18/2019 5:56 pm Signed by: MD CRANDALL RISA Transcribed Date and Time: 10/18/2019 5:57 [place] Patient Name: CHARLIE NGUYEN ---Diagnostic Radiology--- Exam Date/Time 10/18/2019 17:41:40 EDT Exam CR Chest Portable Ordering Physician Gene CORONA, RUDDY TRACY Accession Number [id number] CPT4 Codes 79056 () Reason For Exam sob Report Portable [...] structures are intact. Report Dictated on Workstation: [employer] --- Final --- Dictating Physician: MD CRANDALL RISA Signed Date and Time: 10/18/2019 5:56 pm Signed by: MD CRANDALL RISA Transcribed Date and Time: 10/18/2019 5:57 [place] Basic Metabolic Panelon 05- Anion gap [Moles/Vol] 11 mmol/L [place] Calcium [Mass/Vol] 8.1 mg/dL Low 8.4 - 10. 4 mg/dL [place] Chloride [Moles/Vol] 107 mmol/L 98 - 10 7 mmol/L [place] CO2 [Moles/Vol] 24 mmol/L 22 - 30 mmol/L [place] Creatinine [Mass/Vol] 0.53 mg/dL 0.52 - 1.25 mg/dL [place] EGFR IF NonAfrican [place] >90.0 >60 mL/min [place] Comment on above: KDIGO guidelines pro [...] MDRD (S/P/Bld) [Vol rate/Area] mL/min/{1.73_m2} >60 mL/min [place] Glucose [Mass/Vol] 105 mg/dL High 70 - 100 mg/dL [place] Potassium [Moles/Vol] 3.6 mmol/L 3.5 - 5.1 mmol/L [place] Sodium [Moles/Vol] 142 mmol/L 135 - 145 mmol/L [place] Urea nitrogen [Mass/Vol] 24 mg/dL High 7 - 20 mg/d L [place] CBC Auto Differentialon 05-1 Absolute Baso # 0.2 10*3/uL 0 - 0.2 10*3/uL [place] Absolute Neut # 13.1 10*3/uL High 1.8 - 7 10*3/uL [place] Basophils/100 WBC (Bld) 1.3 % 0 - 2 % [place] Eosinophils (Bld) [#/Vol] 0.4 10*3/uL 0 - 0.5 10*3/uL [place] Eosinophils/100 WBC (Bld) 2.4 % 1 - 6 % [place] Erythrocyte distribution width (RBC) [Ratio] 15.3 % High 11.5 - 14.5 % [place] Granulocytes/100 WBC (Bld) 78.5 % 40 - 80 % [place] Hematocrit (Bld) [Volume fraction] 36.2 % 35 - 47 % [place] Hemoglobin (Bld) [Mass/Vol] 12.0 g/dL 11.7 - 16 g/dL [place] Interpretation and review of laboratory results Abnormal [place] Lymphocytes (Bld) [#/Vol] 2.1 10*3/uL 1 - 4.3 10*3/uL [place] Lymphocytes/100 WBC (Bld) 12.8 % Low 20 - 40 % [place] MCH (RBC) [Entitic mass] 32.3 pg 26 - 34 pg [place] MCHC (RBC) [Mass/Vol] 33.1 % 32 - 36 % [place] MCV (RBC) [Entitic vol] 97.6 fL 79 - 98 fL [place] Monocytes (Bld) [#/Vol] 0.8 10*3/uL 0 - 0.8 10*3/uL [place] Monocytes/100 WBC (Bld) 5.0 % 2 - 10 % [place] Platelet mean volume (Bld) [Entitic vol] 7.3 fL Low 7.4 - 10.4 fL [place] Platelets (Bld) [#/Vol] 575 10*3/uL High 140 - 440 10*3/uL [place] RBC (Bld) [#/Vol] 3.71 10*6/uL Low 3.8 - 5.2 10*6/uL [place] WBC (Bld) [#/Vol] 16.7 10*3/uL High 3.6 - 10.7 10*3/uL [place] Test Performed by [facility], [address] [place], [place] [id number] [place] [address] Hepatic Function Panelon Albumin [Mass/Vol] 3.4 g/dL Low 3.5 - 5 g/dL [place] ALP [Catalytic activity/Vol] 131 U/L High 38 - 126 U/L [place] ALT [Catalytic activity/Vol] 219 U/L High 0 - 34 U/L [place] Comment on above: The ALT test is perf ormed by an updated assay method. Please note that the reference intervals have been changed and are now sex specific. AST [Catalytic activity/Vol] 86 U/L High 15 - 46 U/L [place] Bilirubin Ql (U) 0.8 mg/dL 0.2 - 1.3 mg/dL [place] Bilirubin.direct [Mass/Vol] 0.0 mg/dL 0 - 0.3 mg/dL [place] Protein [Mass/Vol] 7.3 g/dL 6.3 - 8.2 g/dL [place] Otheron 10-16-2019 Interpretation and review of laboratory results Abnormal [place] Test Performed by [facility], [address], [place], [place] [id number] [place] [address] Basic Metabolic Panelon 09-29 Anion gap [Moles/Vol] 10 mmol/L [place] Calcium [Mass/Vol] 8.2 mg/dL Low 8.4 - 10. 4 mg/dL [place] Chloride [Moles/Vol] 109 mmol/L High 98 - 10 7 mmol/L [place] CO2 [Moles/Vol] 24 mmol/L 22 - 30 mmol/L [place] Creatinine [Mass/Vol] 0.56 mg/dL 0.52 - 1.25 mg/dL [place] EGFR IF NonAfrican [place] >90.0 >60 mL/min [place] Comment on above: KDIGO guidelines pro [...] MDRD (S/P/Bld) [Vol rate/Area] mL/min/{1.73_m2} >60 mL/min [place] Glucose [Mass/Vol] 117 mg/dL High 70 - 100 mg/dL [place] Potassium [Moles/Vol] 3.6 mmol/L 3.5 - 5.1 mmol/L [place] Sodium [Moles/Vol] 143 mmol/L 135 - 145 mmol/L [place] Urea nitrogen [Mass/Vol] 24 mg/dL High 7 - 20 mg/d L [place] CBC Auto Differentialon 09-29 Absolute Baso # 0.2 10*3/uL 0 - 0.2 10*3/uL [place] Absolute Neut # 13.2 10*3/uL High 1.8 - 7 10*3/uL [place] Basophils/100 WBC (Bld) 1.1 % 0 - 2 % [place] Eosinophils (Bld) [#/Vol] 0.4 10*3/uL 0 - 0.5 10*3/uL [place] Eosinophils/100 WBC (Bld) 2.5 % 1 - 6 % [place] Erythrocyte distribution width (RBC) [Ratio] 15.6 % High 11.5 - 14.5 % [place] Granulocytes/100 WBC (Bld) 76.2 % 40 - 80 % [place] Hematocrit (Bld) [Volume fraction] 38.5 % 35 - 47 % [place] Hemoglobin (Bld) [Mass/Vol] 12.2 g/dL 11.7 - 16 g/dL [place] Interpretation and review of laboratory results Abnormal [place] Lymphocytes (Bld) [#/Vol] 2.5 10*3/uL 1 - 4.3 10*3/uL [place] Lymphocytes/100 WBC (Bld) 14.3 % Low 20 - 40 % [place] MCH (RBC) [Entitic mass] 31.5 pg 26 - 34 pg [place] MCHC (RBC) [Mass/Vol] 31.8 % Low 32 - 36 % [place] MCV (RBC) [Entitic vol] 99.0 fL High 79 - 98 fL [place] Monocytes (Bld) [#/Vol] 1.0 10*3/uL High 0 - 0.8 10*3/uL [place] Monocytes/100 WBC (Bld) 5.9 % 2 - 10 % [place] Platelet mean volume (Bld) [Entitic vol] 7.4 fL 7.4 - 10.4 fL [place] Platelets (Bld) [#/Vol] 654 10*3/uL High 140 - 440 10*3/uL [place] RBC (Bld) [#/Vol] 3.88 10*6/uL 3.8 - 5.2 10*6/uL [place] WBC (Bld) [#/Vol] 17.4 10*3/uL High 3.6 - 10.7 10*3/uL [place] Test Performed by [facility], [address] [place], [place], [place] [id number] [place] [address] Hepatic Function Panelon Albumin [Mass/Vol] 3.3 g/dL Low 3.5 - 5 g/dL [place], [place] ALP [Catalytic activity/Vol] 139 U/L High 38 - 126 U/L [place] ALT [Catalytic activity/Vol] 289 U/L High 0 - 34 U/L [place] Comment on above: The ALT test is perf ormed by an updated assay method. Please note that the reference intervals have been changed and are now sex specific. AST [Catalytic activity/Vol] 146 U/L High 15 - 46 U/L [place] Bilirubin Ql (U) 0.7 mg/dL 0.2 - 1.3 mg/dL [place] Bilirubin.direct [Mass/Vol] 0.0 mg/dL 0 - 0.3 mg/dL [place] Protein [Mass/Vol] 6.8 g/dL 6.3 - 8.2 g/dL [place] Otheron 10-15-2019 Interpretation and review of laboratory results Abnormal [place] Test Performed by [facility], [address] [place], [place] [address] [place] CBC Auto Differentialon 09-29 Absolute Baso # 0.3 10*3/uL High 0 - 0.2 10*3/uL [place] Absolute Neut # 15.3 10*3/uL High 1.8 - 7 10*3/uL [place] Basophils/100 WBC (Bld) 1.4 % 0 - 2 % M [place] Eosinophils (Bld) [#/Vol] 0.2 10*3/uL 0 - 0.5 10*3/uL [place] Eosinophils/100 WBC (Bld) 0.8 % Low 1 - 6 % [place] Erythrocyte distribution width (RBC) [Ratio] 15.5 % High 11.5 - 14.5 % [place] Granulocytes/100 WBC (Bld) 77.4 % 40 - 80 % [place] Hematocrit (Bld) [Volume fraction] 37.4 % 35 - 47 % [place] Hemoglobin (Bld) [Mass/Vol] 12.2 g/dL 11.7 - 16 g/dL [place] Interpretation and review of laboratory results Abnormal [place] Lymphocytes (Bld) [#/Vol] 2.6 10*3/uL 1 - 4.3 10*3/uL [place] Lymphocytes/100 WBC (Bld) 13.1 % Low 20 - 40 % [place] MCH (RBC) [Entitic mass] 31.6 pg 26 - 34 pg [place] MCHC (RBC) [Mass/Vol] 32.6 % 32 - 36 % [place] MCV (RBC) [Entitic vol] 96.9 fL 79 - 98 fL [place] Monocytes (Bld) [#/Vol] 1.4 10*3/uL High 0 - 0.8 10*3/uL [place] Monocytes/100 WBC (Bld) 7.3 % 2 - 10 % [place] Platelet mean volume (Bld) [Entitic vol] 7.6 fL 7.4 - 10.4 fL [place] Platelets (Bld) [#/Vol] 669 10*3/uL High 140 - 440 10*3/uL [place] RBC (Bld) [#/Vol] 3.86 10*6/uL 3.8 - 5.2 10*6/uL [place] WBC (Bld) [#/Vol] 19.8 10*3/uL High 3.6 - 10.7 10*3/uL [place] Test Performed by [facility] [employer] [facility], [address] [place], [place] [address] [place] Comprehensive Metabolic Pane rafiq 10-14-2019 Albumin [Mass/Vol] 3.2 g/dL Low 3.5 - 5 g/dL [place] ALP [Catalytic activity/Vol] 155 U/L High 38 - 126 U/L [place] ALT [Catalytic activity/Vol] 221 U/L High 0 - 34 U/L [place] Comment on above: The ALT test is perf ormed by an updated assay method. Please note that the reference intervals have been changed and are now sex specific. Anion gap [Moles/Vol] 9 mmol/L [place] AST [Catalytic activity/Vol] 141 U/L High 15 - 46 U/L [place] Bilirubin Ql (U) 0.8 mg/dL 0.2 - 1.3 mg/dL [place] Calcium [Mass/Vol] 8.2 mg/dL Low 8.4 - 10. 4 mg/dL [place] Chloride [Moles/Vol] 105 mmol/L 98 - 10 7 mmol/L [place] CO2 [Moles/Vol] 27 mmol/L 22 - 30 mmol/L [place] Creatinine [Mass/Vol] 0.68 mg/dL 0.52 - 1.25 mg/dL [place] EGFR IF NonAfrican [place] >90.0 >60 mL/min [place] Comment on above: KDIGO guidelines pro [...] MDRD (S/P/Bld) [Vol rate/Area] mL/min/{1.73_m2} >60 mL/min [place] Glucose [Mass/Vol] 106 mg/dL High 70 - 100 mg/dL [place] Interpretation and review of laboratory results Abnormal [place] Potassium [Moles/Vol] 3.1 mmol/L Low 3.5 - 5.1 mmol/L [place] Protein [Mass/Vol] 7.0 g/dL 6.3 - 8.2 g/dL [place] Sodium [Moles/Vol] 141 mmol/L 135 - 145 mmol/L [place] Urea nitrogen [Mass/Vol] 22 mg/dL High 7 - 20 mg/d L [place] HEPATITIS PANEL, ACUTEon HAV IgM IA Qn (S) NOT DETECTED Not-Detect ed NA [place] Hep B Core Ab, IgM NOT DETECTED Not-Detec senait NA [place] Hepatitis B Surface Ag NOT DETECTED Not-D etected [place] Hepatitis C Ab NOT DETECTED Not-Detected [place] Comment on above: Patients with DETECT ED Hepatitis C Ab results should have a new specimen submitted for supplemental testing with a Hepatitis C Quantitative RNA assay (viral load), if clinically indicated. Test Performed by [facility], [address] [place] [address] [place] Magnesiumon 10-14-2019 Magnesium [Mass/Vol] 1.7 mg/dL 1.6 - 2 .3 mg/dL [place] Otheron 10-14-2019 Test Performed by [address] [address] [place] Phosphoruson 10-14-2019 Phosphate [Mass/Vol] 3.5 mg/dL 2.5 - 4 .5 mg/dL [place] XR CHEST PORTABLEon 10-14-19 20 [facility], [facility] Incoming Radiology Results From [facility] - 10/14/2019 9:19 AM EDT Patient Name: CHARLIE NGUYEN ---Diagnostic Radiology--- Exam Date/Time 10/14/2019 08:30:00 EDT Exam CR Chest Portable Ordering Physician CLINTON DELEON Accession Number [id number] CPT4 Codes 83195 () Reason For Exam resp failure/ pneumonia/ [...] ANTHONY Transcribed Date and Time: 10/14/2019 9:19 [place] Patient Name: CHARLIE NGUYEN ---Diagnostic Radiology--- Exam Date/Time 10/14/2019 08:30:00 EDT Exam CR Chest Portable Ordering Physician CLINTON DELEON Accession Number [id number] CPT4 Codes 44710 () Reason For Exam resp failure/ pneumonia/ [...] ANTHONY Transcribed Date and Time: 10/14/2019 9:19 [place] CBC Auto Differentialon 05 Absolute Baso # 0.1 10*3/uL 0 - 0.2 10*3/uL [place] Absolute Neut # 13.4 10*3/uL High 1.8 - 7 10*3/uL [place] Basophils/100 WBC (Bld) 0.8 % 0 - 2 % [place] Eosinophils (Bld) [#/Vol] 0.0 10*3/uL 0 - 0.5 10*3/uL [place] Eosinophils/100 WBC (Bld) 0.0 % Low 1 - 6 % [place] Erythrocyte distribution width (RBC) [Ratio] 14.7 % High 11.5 - 14.5 % [place] Granulocytes/100 WBC (Bld) 84.2 % High 40 - 80 % [place] Hematocrit (Bld) [Volume fraction] 36.1 % 35 - 47 % [place] Hemoglobin (Bld) [Mass/Vol] 11.9 g/dL 11.7 - 16 g/dL [place] Lymphocytes (Bld) [#/Vol] 1.5 10*3/uL 1 - 4.3 10*3/uL [place] Lymphocytes/100 WBC (Bld) 9.7 % Low 20 - 40 % [place] MCH (RBC) [Entitic mass] 31.6 pg 26 - 34 pg [place] MCHC (RBC) [Mass/Vol] 33.1 % 32 - 36 % [place] MCV (RBC) [Entitic vol] 95.7 fL 79 - 98 fL [place] Monocytes (Bld) [#/Vol] 0.8 10*3/uL 0 - 0.8 10*3/uL [place] Monocytes/100 WBC (Bld) 5.3 % 2 - 10 % [place] Platelet mean volume (Bld) [Entitic vol] 7.7 fL 7.4 - 10.4 fL [place] Platelets (Bld) [#/Vol] 668 10*3/uL High 140 - 440 10*3/uL [place] RBC (Bld) [#/Vol] 3.78 10*6/uL Low 3.8 - 5.2 10*6/uL [place] WBC (Bld) [#/Vol] 15.9 10*3/uL High 3.6 - 10.7 10*3/uL [place] Comprehensive Metabolic Pane rafiq 10-13-2019 Albumin [Mass/Vol] 3.4 g/dL Low 3.5 - 5 g/dL [place] ALP [Catalytic activity/Vol] 174 U/L High 38 - 126 U/L [place] ALT [Catalytic activity/Vol] 122 U/L High 0 - 34 U/L [place] Comment on above: The ALT test is perf ormed by an updated assay method. Please note that the reference intervals have been changed and are now sex specific. Anion gap [Moles/Vol] 9 mmol/L [place] AST [Catalytic activity/Vol] 118 U/L High 15 - 46 U/L [place] Bilirubin Ql (U) 0.9 mg/dL 0.2 - 1.3 mg/dL [place] Calcium [Mass/Vol] 8.2 mg/dL Low 8.4 - 10. 4 mg/dL [place] Chloride [Moles/Vol] 105 mmol/L 98 - 10 7 mmol/L [place] CO2 [Moles/Vol] 28 mmol/L 22 - 30 mmol/L [place] Creatinine [Mass/Vol] 0.52 mg/dL 0.52 - 1.25 mg/dL [place] EGFR IF NonAfrican [place] >90.0 >60 mL/min [place] Comment on above: KDIGO guidelines pro [...] MDRD (S/P/Bld) [Vol rate/Area] mL/min/{1.73_m2} >60 mL/min [place] Glucose [Mass/Vol] 110 mg/dL High 70 - 100 mg/dL [place] Potassium [Moles/Vol] 2.8 mmol/L Low 3.5 - 5.1 mmol/L [place] Protein [Mass/Vol] 7.2 g/dL 6.3 - 8.2 g/dL [place] Sodium [Moles/Vol] 142 mmol/L 135 - 145 mmol/L [place] Urea nitrogen [Mass/Vol] 15 mg/dL 7 - 20 mg/d L [place] Magnesiumon 10-13-2019 Magnesium [Mass/Vol] 1.8 mg/dL 1.6 - 2 .3 mg/dL [place] Otheron 10-13-2019 Interpretation and review of laboratory results Abnormal [place] Test Performed by [facility], [address] [place] [address] [place] Phosphoruson 10-13-2019 Phosphate [Mass/Vol] 2.6 mg/dL 2.5 - 4 .5 mg/dL [place] Potassiumon 10-13-2019 Potassium [Moles/Vol] 3.4 mmol/L Low 3.5 - 5.1 mmol/L [place] XR CHEST PORTABLEon 10-13-19 20 Patient Name: CHARLIE NGUYEN ---Diagnostic Radiology--- Exam Date/Time 10/13/2019 05:36:07 EDT Exam CR Chest Portable Ordering Physician CLINTON DELEON Accession Number [id number] CPT4 Codes 22600 () Reason For Exam resp failure/ pneumonia/ [...] Small bilateral effusions. Report Dictated on Workstation: [id number] --- Final --- Dictating Physician: DO DICKEY ALFRED Signed Date and Time: 10/13/2019 5:57 am Signed by: DO DICKEY ALFRED Transcribed Date and Time: 10/13/2019 5:58 [place], [facility] Incoming Radiology Results From [facility] - 10/13/2019 5:58 AM EDT Patient Name: CHARLIE NGUYEN ---Diagnostic Radiology--- Exam Date/Time 10/13/2019 05:36:07 EDT Exam CR Chest Portable Ordering Physician CLINTON DELEON Accession Number [id number] CPT4 Codes 46137 () Reason For Exam resp failure/ pneumonia/ [...] Small bilateral effusions. Report Dictated on Workstation: [id number] --- Final --- Dictating Physician: DO DICKEY ALFRED Signed Date and Time: 10/13/2019 5:57 am Signed by: DO DICKEY ALFRED Transcribed Date and Time: 10/13/2019 5:58 [place] CBC Auto Differentialon 05 Absolute Baso # 0.0 10*3/uL 0 - 0.2 10*3/uL [place] Absolute Neut # 8.0 10*3/uL High 1.8 - 7 10*3/uL [place] Basophils/100 WBC (Bld) 0.3 % 0 - 2 % [place] Eosinophils (Bld) [#/Vol] 0.0 10*3/uL 0 - 0.5 10*3/uL [place] Eosinophils/100 WBC (Bld) 0.0 % Low 1 - 6 % [place] Erythrocyte distribution width (RBC) [Ratio] 15.2 % High 11.5 - 14.5 % [place] Granulocytes/100 WBC (Bld) 84.5 % High 40 - 80 % [place] Hematocrit (Bld) [Volume fraction] 32.7 % Low 35 - 47 % [place] Hemoglobin (Bld) [Mass/Vol] 10.7 g/dL Low 11.7 - 16 g/dL [place] Interpretation and review of laboratory results Abnormal [place] Lymphocytes (Bld) [#/Vol] 0.9 10*3/uL Low 1 - 4.3 10*3/uL [place] Lymphocytes/100 WBC (Bld) 9.3 % Low 20 - 40 % [place] MCH (RBC) [Entitic mass] 31.9 pg 26 - 34 pg [place] MCHC (RBC) [Mass/Vol] 32.9 % 32 - 36 % [place] MCV (RBC) [Entitic vol] 97.2 fL 79 - 98 fL [place] Monocytes (Bld) [#/Vol] 0.6 10*3/uL 0 - 0.8 10*3/uL [place] Monocytes/100 WBC (Bld) 5.9 % 2 - 10 % [place] Platelet mean volume (Bld) [Entitic vol] 8.0 fL 7.4 - 10.4 fL [place] Platelets (Bld) [#/Vol] 571 10*3/uL High 140 - 440 10*3/uL [place] RBC (Bld) [#/Vol] 3.36 10*6/uL Low 3.8 - 5.2 10*6/uL [place] WBC (Bld) [#/Vol] 9.4 10*3/uL 3.6 - 10.7 10*3/uL [place] Test [facility] by [facility], [address], [place], [place] [address] [place] Comprehensive Metabolic Pane rafiq 10-12-2019 Albumin [Mass/Vol] 3.3 g/dL Low 3.5 - 5 g/dL [place] ALP [Catalytic activity/Vol] 157 U/L High 38 - 126 U/L [place] ALT [Catalytic activity/Vol] 61 U/L High 0 - 34 U/L [place] Comment on above: The ALT test is perf ormed by an updated assay method. Please note that the reference intervals have been changed and are now sex specific. Anion gap [Moles/Vol] 8 mmol/L [place] AST [Catalytic activity/Vol] 69 U/L High 15 - 46 U/L [place] Bilirubin Ql (U) 0.5 mg/dL 0.2 - 1.3 mg/dL [place] Calcium [Mass/Vol] 8.0 mg/dL Low 8.4 - 10. 4 mg/dL [place] Chloride [Moles/Vol] 103 mmol/L 98 - 10 7 mmol/L [place] CO2 [Moles/Vol] 29 mmol/L 22 - 30 mmol/L [place] Creatinine [Mass/Vol] 0.48 mg/dL Low 0.52 - 1.25 mg/dL [place] EGFR IF NonAfrican [place] >90.0 >60 mL/min [place] Comment on above: KDIGO guidelines pro [...] MDRD (S/P/Bld) [Vol rate/Area] mL/min/{1.73_m2} >60 mL/min [place] Glucose [Mass/Vol] 168 mg/dL High 70 - 100 mg/dL [place] Interpretation and review of laboratory results Abnormal [place] Potassium [Moles/Vol] 3.7 mmol/L 3.5 - 5.1 mmol/L [place] Protein [Mass/Vol] 6.9 g/dL 6.3 - 8.2 g/dL [place] Sodium [Moles/Vol] 140 mmol/L 135 - 145 mmol/L [place] Urea nitrogen [Mass/Vol] 21 mg/dL High 7 - 20 mg/d L [place] Culture, Respiratoryon 10-11 Interpretation and review of laboratory results Abnormal [place] Respiratory Culture Rare Negative for PBP2a (MSSA). [place] Respiratory Culture Staphylococcus aureus Abnormal [place] Respiratory Culture Few normal respiratory naomi. Abnormal [place] Test Performed by [email or web address] [address] Specimen Source Comment:Endotracheal [place] Magnesiumon 10-12-2019 Magnesium [Mass/Vol] 1.8 mg/dL 1.6 - 2 .3 mg/dL [place] Otheron 10-12-2019 Test Performed by [facility], [address], [place], [place] [id number] [place] [address] POCT Arterialon 10-12-2019 Base Excess, Arterial 3.1 mmol/L High -3 - 3 mmol/L [place] HCO3, Arterial 27.6 mmol/L High 21 - 25 mmol/L [place] Interpretation and review of laboratory results Abnormal [place] Oxygen saturation in Blood 94.8 % Low 95 - 100 % [place] pCO2, Arterial 40.8 mm[Hg] 35 - 45 mm[Hg] [place] pH, Arterial 7.438 [place] pO2, Arterial 72.1 mm[Hg] Low 80 - 100 mm[Hg] [place] Sodium [Moles/Vol] 45 mmol/L [place] Comment on above: Performed by [facility] ID : [id number] [place], [place] TCO2, Arterial 28.8 mmol/L High 23 - 27 mmol/L [place] Test Performed by [facility], [address] [place], [place] [id number] [place] [address] Phosphoruson 10-12-2019 Phosphate [Mass/Vol] 3.5 mg/dL 2.5 - 4 .5 mg/dL [place] Vancomycin, [place] 020 Interpretation and review of laboratory results Abnormal [place] Vancomycin Tr 11.5 ug/mL Low 15 - 20 ug/mL [place] Comment on above: . Test Performed by [facility], [address] [place], [place] [id number] [place] [address] XR CHEST PORTABLEon 10-12-19 20 [place], [facility] Incoming Radiology Results From [facility] - 10/12/2019 4:52 AM EDT Patient Name: CHARLIE NGUYEN ---Diagnostic Radiology--- Exam Date/Time 10/12/2019 04:18:26 EDT Exam CR Chest Portable Ordering Physician CLINTON DELEON Accession Number [id number] CPT4 Codes 35186 () Reason For Exam resp failure/ pneumonia/ [...] right sided atelectasis Report Dictated on Workstation: [id number] --- Final --- Dictating Physician: DO DICKEY ALFRED Signed Date and Time: 10/12/2019 4:51 am Signed by: DO DICKEY ALFRED Transcribed Date and Time: 10/12/2019 4:52 [place] Patient Name: CHARLIE NGUYEN ---Diagnostic Radiology--- Exam Date/Time 10/12/2019 04:18:26 EDT Exam CR Chest Portable Ordering Physician CLINTON DELEON Accession Number [id number] CPT4 Codes 47649 () Reason For Exam resp failure/ pneumonia/ [...] ALFRED Transcribed Date and Time: 10/12/2019 4:52 [place] CBC Auto Differentialon 09-29 Absolute Baso # 0.0 10*3/uL 0 - 0.2 10*3/uL [place] Absolute Neut # 6.2 10*3/uL 1.8 - 7 10*3/uL [place] Basophils/100 WBC (Bld) 0.4 % 0 - 2 % [place] Eosinophils (Bld) [#/Vol] 0.0 10*3/uL 0 - 0.5 10*3/uL [place] Eosinophils/100 WBC (Bld) 0.1 % Low 1 - 6 % [place] Erythrocyte distribution width (RBC) [Ratio] 15.2 % High 11.5 - 14.5 % [place] Granulocytes/100 WBC (Bld) 75.5 % 40 - 80 % [place] Hematocrit (Bld) [Volume fraction] 30.1 % Low 35 - 47 % [place] Hemoglobin (Bld) [Mass/Vol] 9.8 g/dL Low 11.7 - 16 g/dL [place] Interpretation and review of laboratory results Abnormal [place] Lymphocytes (Bld) [#/Vol] 1.2 10*3/uL 1 - 4.3 10*3/uL [place] Lymphocytes/100 WBC (Bld) 14.1 % Low 20 - 40 % [place] MCH (RBC) [Entitic mass] 31.8 pg 26 - 34 pg [place] MCHC (RBC) [Mass/Vol] 32.7 % 32 - 36 % [place] MCV (RBC) [Entitic vol] 97.1 fL 79 - 98 fL [place] Monocytes (Bld) [#/Vol] 0.8 10*3/uL 0 - 0.8 10*3/uL [place] Monocytes/100 WBC (Bld) 9.9 % 2 - 10 % [place] Platelet mean volume (Bld) [Entitic vol] 7.7 fL 7.4 - 10.4 fL [place] Platelets (Bld) [#/Vol] 494 10*3/uL High 140 - 440 10*3/uL [place] RBC (Bld) [#/Vol] 3.10 10*6/uL Low 3.8 - 5.2 10*6/uL [place] WBC (Bld) [#/Vol] 8.2 10*3/uL 3.6 - 10.7 10*3/uL [place] Test Performed by [facility], [address], [place], [place] [address] [place] Comprehensive Metabolic Pane rafiq 10-11-2019 Albumin [Mass/Vol] 3.1 g/dL Low 3.5 - 5 g/dL [place] ALP [Catalytic activity/Vol] 163 U/L High 38 - 126 U/L [place] ALT [Catalytic activity/Vol] 36 U/L High 0 - 34 U/L [place] Comment on above: The ALT test is perf ormed by an updated assay method. Please note that the reference intervals have been changed and are now sex specific. Anion gap [Moles/Vol] 9 mmol/L [place] AST [Catalytic activity/Vol] 46 U/L 15 - 46 U/L [place] Bilirubin Ql (U) 0.5 mg/dL 0.2 - 1.3 mg/dL [place] Calcium [Mass/Vol] 8.1 mg/dL Low 8.4 - 10. 4 mg/dL [place] Chloride [Moles/Vol] 103 mmol/L 98 - 10 7 mmol/L [place] CO2 [Moles/Vol] 29 mmol/L 22 - 30 mmol/L [place] Creatinine [Mass/Vol] 0.5 mg/dL Low 0.52 - 1.25 mg/dL [place] EGFR IF NonAfrican [place] >90.0 >60 mL/min [place] Comment on above: CORRECTED RESULT...P revious above value was >60.0, verified on 10/11/19 at 05:39 by [facility] . KDIGO guidelines provide the following GFR [...] MDRD (S/P/Bld) [Vol rate/Area] mL/min/{1.73_m2} >60 mL/min [place] Comment on above: CORRECTED RESULT...P revious above value was >60.0, verified on 10/11/19 at 05:39 by [facility] . Glucose [Mass/Vol] 144 mg/dL High 70 - 100 mg/dL [place] Interpretation and review of laboratory results Abnormal [place] Potassium [Moles/Vol] 3.7 mmol/L 3.5 - 5.1 mmol/L [place] Protein [Mass/Vol] 6.5 g/dL 6.3 - 8.2 g/dL [place] Sodium [Moles/Vol] 140 mmol/L 135 - 145 mmol/L [place] Urea nitrogen [Mass/Vol] 16 mg/dL 7 - 20 mg/d L [place] Magnesiumon 10-11-2019 Magnesium [Mass/Vol] 1.9 mg/dL 1.6 - 2 .3 mg/dL [place] Otheron 10-11-2019 Test Performed by [employer] [facility], [address], [place], [place] [id number] [place] [address] POCT Arterialon 10-11-2019 Base Excess, Arterial 3.4 mmol/L High -3 - 3 mmol/L [place] HCO3, Arterial 28.2 mmol/L High 21 - 25 mmol/L [place] Interpretation and review of laboratory results Abnormal [place] Oxygen saturation in Blood 95.8 % 95 - 100 % [place] pCO2, Arterial 43.1 mm[Hg] 35 - 45 mm[Hg] [place] pH, Arterial 7.424 [place] pO2, Arterial 79.2 mm[Hg] Low 80 - 100 mm[Hg] [place] Sodium [Moles/Vol] 50 mmol/L [place] Comment on above: Performed by [facility] ID : [id number] [place], [place] TCO2, Arterial 29.5 mmol/L High 23 - 27 mmol/L [place] Test Performed by [facility], [address] [place] [address] [place] Phosphoruson 10-11-2019 Phosphate [Mass/Vol] 3.0 mg/dL 2.5 - 4 .5 mg/dL [place] XR CHEST PORTABLEon 10-11-19 Patient Name: CHARLIE NGUYEN ---Diagnostic Radiology--- Exam Date/Time 10/11/2019 05:32:04 EDT Exam CR Chest Portable Ordering Physician CLINTON DELEON Accession Number [id number] CPT4 Codes 28495 () Reason For Exam resp failure/ pneumonia/ [...] ALFRED Transcribed Date and Time: 10/11/2019 5:32 [place], [facility] Incoming Radiology Results From [facility] - 10/11/2019 5:32 AM EDT Patient Name: CHARLIE NGUYEN ---Diagnostic Radiology--- Exam Date/Time 10/11/2019 05:32:04 EDT Exam CR Chest Portable Ordering Physician CLINTON DELEON Accession Number [id number] CPT4 Codes 21851 () Reason For Exam resp failure/ pneumonia/ [...] ALFRED Transcribed Date and Time: 10/11/2019 5:32 [place] CBC Auto Differentialon 09-29 Absolute Baso # 0.0 10*3/uL 0 - 0.2 10*3/uL [place] Absolute Neut # 7.1 10*3/uL High 1.8 - 7 10*3/uL [place] Basophils/100 WBC (Bld) 0.3 % 0 - 2 % [place] Eosinophils (Bld) [#/Vol] 0.0 10*3/uL 0 - 0.5 10*3/uL [place] Eosinophils/100 WBC (Bld) 0.3 % Low 1 - 6 % [place] Erythrocyte distribution width (RBC) [Ratio] 15.4 % High 11.5 - 14.5 % [place] Granulocytes/100 WBC (Bld) 77.3 % 40 - 80 % [place] Hematocrit (Bld) [Volume fraction] 29.0 % Low 35 - 47 % [place] Hemoglobin (Bld) [Mass/Vol] 9.7 g/dL Low 11.7 - 16 g/dL [place] Interpretation and review of laboratory results Abnormal [place] Lymphocytes (Bld) [#/Vol] 1.0 10*3/uL 1 - 4.3 10*3/uL [place] Lymphocytes/100 WBC (Bld) 11.4 % Low 20 - 40 % [place] MCH (RBC) [Entitic mass] 32.1 pg 26 - 34 pg [place] MCHC (RBC) [Mass/Vol] 33.2 % 32 - 36 % [place] MCV (RBC) [Entitic vol] 96.6 fL 79 - 98 fL [place] Monocytes (Bld) [#/Vol] 1.0 10*3/uL High 0 - 0.8 10*3/uL [place] Monocytes/100 WBC (Bld) 10.7 % High 2 - 10 % [place] Platelet mean volume (Bld) [Entitic vol] 7.9 fL 7.4 - 10.4 fL [place] Platelets (Bld) [#/Vol] 380 10*3/uL 140 - 440 10*3/uL [place] RBC (Bld) [#/Vol] 3.01 10*6/uL Low 3.8 - 5.2 10*6/uL [place] WBC (Bld) [#/Vol] 9.2 10*3/uL 3.6 - 10.7 10*3/uL [place] Test Performed by [facility] [employer] [facility], [address], [place], [place] [address] [place] Comprehensive Metabolic Pane rafiq 10-10-2019 Albumin [Mass/Vol] 3.2 g/dL Low 3.5 - 5 g/dL [place] ALP [Catalytic activity/Vol] 177 U/L High 38 - 126 U/L [place] ALT [Catalytic activity/Vol] 34 U/L 0 - 34 U/L [place] Comment on above: The ALT test is perf ormed by an updated assay method. Please note that the reference intervals have been changed and are now sex specific. Anion gap [Moles/Vol] 8 mmol/L [place] AST [Catalytic activity/Vol] 39 U/L 15 - 46 U/L [place] Bilirubin Ql (U) 0.8 mg/dL 0.2 - 1.3 mg/dL [place] Calcium [Mass/Vol] 7.8 mg/dL Low 8.4 - 10. 4 mg/dL [place] Chloride [Moles/Vol] 103 mmol/L 98 - 10 7 mmol/L [place] CO2 [Moles/Vol] 29 mmol/L 22 - 30 mmol/L [place] Creatinine [Mass/Vol] 0.56 mg/dL 0.52 - 1.25 mg/dL [place] EGFR IF NonAfrican [place] >60.0 >60 mL/min [place] Comment on above: Source- MDRD equatio n with creatinine calibration to IDMS(NKDEP) eGFR not recommended for drug dose adjustment GFR/1.73 sq M predicted among blacks MDRD (S/P/Bld) [Vol rate/Area] mL/min/{1.73_m2} >60 mL/min [place] Glucose [Mass/Vol] 126 mg/dL High 70 - 100 mg/dL [place] Interpretation and review of laboratory results Abnormal [place] Potassium [Moles/Vol] 3.7 mmol/L 3.5 - 5.1 mmol/L [place] Protein [Mass/Vol] 6.6 g/dL 6.3 - 8.2 g/dL [place] Sodium [Moles/Vol] 140 mmol/L 135 - 145 mmol/L [place] Urea nitrogen [Mass/Vol] 15 mg/dL 7 - 20 mg/d L [place] EKG 12 [place] 10-10-2019 [place], [facility] Incoming Cardiology Results From [facility] - 10/10/2019 2:02 PM EDT [facility] Test Date: 2019-10-08 Pat Name: Charlie Nguyen Department: [facility] Room: 232 Gender: F 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 Test Date: 2019-10-08 Pat Name: Charlie Nguyen [facility] Room: 232 Gender: F Overlock Sleeve Setter: OTONIEL : 1955 Requested By: NICA ConfabbSCH Order Number: [id number] Reading MD: Edmar Atkinson Measurements Intervals [place] Rate: 72 P: 39 MI: 184 QRS: 7 QRSD: 108 T: 19 QT: 412 QTc: 451 Interpretive Statements SINUS RHYTHM BORDERLINE INTRAVENTRICULAR CONDUCTION DELAY Compared to ECG 10/07/2019 21:02:04 No significant changes Electronically Signed On 10-10-2019 12:46:05 EDT [place], [facility] Incoming Cardiology Results From [facility] - 10/10/2019 12:47 PM EDT [facility] Test Date: 2019-10-08 Pat Name: Charlie Nguyen [facility] Room: 232 Gender: F Overlock Sleeve Setter: OTONIEL : 1955 Requested By: NICA SAL Order Number: [id number] Reading MD: Edmar Atkinson Measurements Intervals [place] Rate: 72 P: 39 MI: 184 QRS: 7 QRSD: 108 T: 19 QT: 412 QTc: 451 Interpretive Statements SINUS RHYTHM BORDERLINE INTRAVENTRICULAR CONDUCTION DELAY Compared to ECG 10/07/2019 21:02:04 No significant changes Electronically Signed On 10-10-2019 12:46:05 EDT [place] Gram Stainon 10-10-2019 INR Coag (Bld) [Relative time] Many polymorphonuclear cells/lpf. Few epithelial cells/lpf. Rare gram positive cocci in clusters. Rare gram positive bacilli. [place] Test Performed by [facility], [address] [place] [address] Specimen Source Comment:Endotracheal [place] Magnesiumon 10-10-2019 Magnesium [Mass/Vol] 1.9 mg/dL 1.6 - 2 .3 mg/dL [place] Otheron 10-10-2019 Test Performed by [facility], [address] [place], [place], [place] [address] [place] POCT Arterialon 10-10-2019 Base Excess, Arterial 5.1 mmol/L High -3 - 3 mmol/L [place] HCO3, Arterial 29.6 mmol/L High 21 - 25 mmol/L [place] Interpretation and review of laboratory results Abnormal [place] Oxygen saturation in Blood 95.5 % 95 - 100 % [place] pCO2, Arterial 42.7 mm[Hg] 35 - 45 mm[Hg] [place] pH, Arterial 7.449 [place] pO2, Arterial 75.7 mm[Hg] Low 80 - 100 mm[Hg] [place] Sodium [Moles/Vol] 50 mmol/L [place] Comment on above: Performed by CLIA ID : [id number] [place], [place] TCO2, Arterial 30.9 mmol/L High 23 - 27 mmol/L [place] Test Performed by [facility], [facility] [address] [place], [place], [place] [address] [place] Phosphoruson 10-10-2019 Phosphate [Mass/Vol] 3.8 mg/dL 2.5 - 4 .5 mg/dL [place] XR CHEST PORTABLEon 10-10-19 20 Rodolfo, [facility] Incoming Radiology Results From [facility] - 10/10/2019 3:36 PM EDT Patient Name: CHARLIE NGUYEN ---Diagnostic Radiology--- Exam Date/Time 10/10/2019 13:50:00 EDT Exam CR Chest Portable Ordering Physician CLINTON DELEON Accession Number [id number] CPT4 Codes 57037 () Reason For Exam resp failure/ pneumonia/ [...] ANTHONY Transcribed Date and Time: 10/10/2019 3:36 [place] Patient Name: CHARLIE NGUYEN ---Diagnostic Radiology--- Exam Date/Time 10/10/2019 13:50:00 EDT Exam CR Chest Portable Ordering Physician ADRIENNE LANCELULU Accession Number [id number] CPT4 Codes 29689 () Reason For Exam resp failure/ pneumonia/ [...] ANTHONY Transcribed Date and Time: 10/10/2019 3:36 [place] Basic Metabolic Panelon 09-29 Anion gap [Moles/Vol] 6 mmol/L [place], [place] Calcium [Mass/Vol] 7.9 mg/dL Low 8.4 - 10. 4 mg/dL [place] Chloride [Moles/Vol] 105 mmol/L 98 - 10 7 mmol/L [place] CO2 [Moles/Vol] 26 mmol/L 22 - 30 mmol/L [place] Creatinine [Mass/Vol] 0.54 mg/dL 0.52 - 1.25 mg/dL [place] EGFR IF NonAfrican [place] >60.0 >60 mL/min [place] Comment on above: Source- MDRD equatio n with creatinine calibration to IDMS(NKDEP) eGFR not recommended for drug dose adjustment GFR/1.73 sq M predicted among blacks MDRD (S/P/Bld) [Vol rate/Area] mL/min/{1.73_m2} >60 mL/min [place] Glucose [Mass/Vol] 122 mg/dL High 70 - 100 mg/dL [place] Interpretation and review of laboratory results Abnormal [place] Potassium [Moles/Vol] 3.5 mmol/L 3.5 - 5.1 mmol/L [place] Sodium [Moles/Vol] 137 mmol/L 135 - 145 mmol/L [place] Urea nitrogen [Mass/Vol] 15 mg/dL 7 - 20 mg/d L [place] Test Performed by [facility] [employer] [facility], [address], [place], [place] [address] [place] Anion gap [Moles/Vol] 6 mmol/L [place] Calcium [Mass/Vol] 7.8 mg/dL Low 8.4 - 10. 4 mg/dL [place] Chloride [Moles/Vol] 104 mmol/L 98 - 10 7 mmol/L [place] CO2 [Moles/Vol] 27 mmol/L 22 - 30 mmol/L [place] Creatinine [Mass/Vol] 0.54 mg/dL 0.52 - 1.25 mg/dL [place] EGFR IF NonAfrican [place] >60.0 >60 mL/min [place] Comment on above: Source- MDRD equatio n with creatinine calibration to IDMS(NKDEP) eGFR not recommended for drug dose adjustment GFR/1.73 sq M predicted among blacks MDRD (S/P/Bld) [Vol rate/Area] mL/min/{1.73_m2} >60 mL/min [place] Glucose [Mass/Vol] 124 mg/dL High 70 - 100 mg/dL [place] Interpretation and review of laboratory results Abnormal [place] Potassium [Moles/Vol] 4.0 mmol/L 3.5 - 5.1 mmol/L [place] Sodium [Moles/Vol] 137 mmol/L 135 - 145 mmol/L [place] Urea nitrogen [Mass/Vol] 14 mg/dL 7 - 20 mg/d L [place] CBC Auto Differentialon 05-1 0-2020 Absolute Baso # 0.1 10*3/uL 0 - 0.2 10*3/uL [place] Absolute Neut # 8.9 10*3/uL High 1.8 - 7 10*3/uL [place] Basophils/100 WBC (Bld) 0.6 % 0 - 2 % [place] Eosinophils (Bld) [#/Vol] 0.2 10*3/uL 0 - 0.5 10*3/uL [place] Eosinophils/100 WBC (Bld) 1.9 % 1 - 6 % [place] Erythrocyte distribution width (RBC) [Ratio] 14.8 % High 11.5 - 14.5 % [place] Granulocytes/100 WBC (Bld) 77.4 % 40 - 80 % [place] Hematocrit (Bld) [Volume fraction] 33.0 % Low 35 - 47 % [place] Hemoglobin (Bld) [Mass/Vol] 10.8 g/dL Low 11.7 - 16 g/dL [place] Interpretation and review of laboratory results Abnormal [place] Lymphocytes (Bld) [#/Vol] 1.1 10*3/uL 1 - 4.3 10*3/uL [place] Lymphocytes/100 WBC (Bld) 9.8 % Low 20 - 40 % [place] MCH (RBC) [Entitic mass] 31.5 pg 26 - 34 pg [place] MCHC (RBC) [Mass/Vol] 32.8 % 32 - 36 % [place] MCV (RBC) [Entitic vol] 96.0 fL 79 - 98 fL [place], [place] Monocytes (Bld) [#/Vol] 1.2 10*3/uL High 0 - 0.8 10*3/uL [place] Monocytes/100 WBC (Bld) 10.3 % High 2 - 10 % [place] Platelet mean volume (Bld) [Entitic vol] 8.4 fL 7.4 - 10.4 fL [place] Platelets (Bld) [#/Vol] 346 10*3/uL 140 - 440 10*3/uL [place] RBC (Bld) [#/Vol] 3.44 10*6/uL Low 3.8 - 5.2 10*6/uL [facility], [place] WBC (Bld) [#/Vol] 11.5 10*3/uL High 3.6 - 10.7 10*3/uL [facility] KATE Test Performed by [facility], [address] [place], [place] [address] [place] Culture, Blood 2on 0 Blood Culture, Routine No growth at 5 days. [place] Test Performed by [facility], [address] [place] [id number] Specimen Source Comment:Blood [place] Hemoglobin and Hematocrit, B loodon 10-09-2019 Hematocrit (Bld) [Volume fraction] 33.5 % Low 35 - 47 % [place] Hemoglobin (Bld) [Mass/Vol] 11.1 g/dL Low 11.7 - 16 g/dL [place] Interpretation and review of laboratory results Abnormal [place] Test Performed by [facility] [employer] [facility], [address], [place], [place] [address] [place] [address] Hematocrit (Bld) [Volume fraction] 33.2 % Low 35 - 47 % [place] Hemoglobin (Bld) [Mass/Vol] 11.0 g/dL Low 11.7 - 16 g/dL [place] Interpretation and review of laboratory results Abnormal [place] Test Performed by [facility], [address], [place], [place] [address] [place] Magnesiumon 10-09-2019 Magnesium [Mass/Vol] 2.0 mg/dL 1.6 - 2 .3 mg/dL [place] Otheron 10-09-2019 Test Performed by [facility] [employer] [facility], [address] [place] [address] [place] POCT Arterialon 10-09-2019 Base Excess, Arterial 2.9 mmol/L -3 - 3 mmol/L [facility] [place], [place] HCO3, Arterial 27.1 mmol/L High 21 - 25 mmol/L [facility] Interpretation and review of laboratory results Abnormal [facility]- [place], [place] Oxygen saturation in Blood 99.1 % 95 - 100 % [facility] pCO2, Arterial 39.2 mm[Hg] 35 - 45 mm[Hg] [facility]- [place] pH, Arterial 7.448 [facility] pO2, Arterial 128.8 mm[Hg] High 80 - 100 mm[Hg] [facility] Sodium [Moles/Vol] 100 mmol/L [facility] Comment on above: Performed by CLIA ID : [id number] [place], [place] TCO2, Arterial 28.3 mmol/L High 23 - 27 mmol/L [facility], [place] Test Performed by [facility] [employer] [facility], [address] [place], [place] [address] [place] [address], [place] Base Excess, Arterial 2.8 mmol/L -3 - 3 mmol/L [facility]- [place], [place] HCO3, Arterial 26.5 mmol/L High 21 - 25 mmol/L [facility] Interpretation and review of laboratory results Abnormal [facility], [place] Oxygen saturation in Blood 97.4 % 95 - 100 % [facility] pCO2, Arterial 36.8 mm[Hg] 35 - 45 mm[Hg] [facility] pH, Arterial 7.466 High [facility], [place] pO2, Arterial 89.3 mm[Hg] 80 - 100 mm[Hg] [facility], [place] Sodium [Moles/Vol] 40 mmol/L [facility], [place] Comment on above: Performed by CLIA ID : [id number] [place] TCO2, Arterial 27.7 mmol/L High 23 - 27 mmol/L [facility], [place] Test Performed by [facility] [employer] [facility], [address] [place], [place] [address] [facility], [place] Phosphoruson 10-09-2019 Phosphate [Mass/Vol] 4.3 mg/dL 2.5 - 4 .5 mg/dL [facility], [place] XR CHEST PORTABLEon 10-09-19 20 Rod[place]fo, [facility] Incoming Radiology Results From [facility] - 10/09/2019 3:56 PM EDT Patient Name: CHARLIE NGUYEN ---Diagnostic Radiology--- Exam Date/Time 10/09/2019 14:12:00 EDT Exam CR Chest Portable Ordering Physician CARLENE ROMERONAKUL Accession Number [id number] CPT4 Codes 14628 () Reason For Exam intubation Report Portable [...] M Transcribed Date and Time: 10/09/2019 3:56 [place] Patient Name: CHARLIE NGUYEN ---Diagnostic Radiology--- Exam Date/Time 10/09/2019 14:12:00 EDT Exam CR Chest Portable Ordering Physician ROMERODES Accession Number [id number] CPT4 Codes 19457 () Reason For Exam intubation Report Portable [...] M Transcribed Date and Time: 10/09/2019 3:56 [place] Basic Metabolic Panelon 05-0 Anion gap [Moles/Vol] 8 mmol/L [place] Calcium [Mass/Vol] 7.7 mg/dL Low 8.4 - 10. 4 mg/dL [place] Chloride [Moles/Vol] 103 mmol/L 98 - 10 7 mmol/L [place] CO2 [Moles/Vol] 25 mmol/L 22 - 30 mmol/L [place] Creatinine [Mass/Vol] 0.54 mg/dL 0.52 - 1.25 mg/dL [place] EGFR IF NonAfrican [place] >60.0 >60 mL/min [place] Comment on above: Source- MDRD equatio n with creatinine calibration to IDMS(NKDEP) eGFR not recommended for drug dose adjustment GFR/1.73 sq M predicted among blacks MDRD (S/P/Bld) [Vol rate/Area] mL/min/{1.73_m2} >60 mL/min [place] Glucose [Mass/Vol] 103 mg/dL High 70 - 100 mg/dL [place] Interpretation and review of laboratory results Abnormal [place] Potassium [Moles/Vol] 3.2 mmol/L Low 3.5 - 5.1 mmol/L [place] Sodium [Moles/Vol] 136 mmol/L 135 - 145 mmol/L [place] Urea nitrogen [Mass/Vol] 14 mg/dL 7 - 20 mg/d L [facility], [place] Test Performed by [facility], [address], [place], [place] [address] [facility], [place] Anion gap [Moles/Vol] 5 mmol/L [facility], [place] Calcium [Mass/Vol] 7.5 mg/dL Low 8.4 - 10. 4 mg/dL [place] Chloride [Moles/Vol] 103 mmol/L 98 - 10 7 mmol/L [facility], [place] CO2 [Moles/Vol] 26 mmol/L 22 - 30 mmol/L [facility], [place] Creatinine [Mass/Vol] 0.53 mg/dL 0.52 - 1.25 mg/dL [place] EGFR IF NonAfrican [place] >60.0 >60 mL/min [place] Comment on above: Source- MDRD equatio n with creatinine calibration to IDMS(NKDEP) eGFR not recommended for drug dose adjustment GFR/1.73 sq M predicted among blacks MDRD (S/P/Bld) [Vol rate/Area] mL/min/{1.73_m2} >60 mL/min [place] Glucose [Mass/Vol] 125 mg/dL High 70 - 100 mg/dL [place] Interpretation and review of laboratory results Abnormal [place] Potassium [Moles/Vol] 3.5 mmol/L 3.5 - 5.1 mmol/L [facility], [place] Sodium [Moles/Vol] 134 mmol/L Low 135 - 145 mmol/L [facility], [place] Urea nitrogen [Mass/Vol] 15 mg/dL 7 - 20 mg/d L [facility], [place] Test Performed by [facility], [address], [place], [place] [address] [facility], [place] Anion gap [Moles/Vol] 8 mmol/L [facility]- [place] Calcium [Mass/Vol] 7.5 mg/dL Low 8.4 - 10. 4 mg/dL [facility], [place] Chloride [Moles/Vol] 102 mmol/L 98 - 10 7 mmol/L [facility], [place] CO2 [Moles/Vol] 26 mmol/L 22 - 30 mmol/L [place] Creatinine [Mass/Vol] 0.5 mg/dL Low 0.52 - 1.25 mg/dL [place] EGFR IF NonAfrican Iraqi >60.0 >60 mL/min [place] Comment on above: Source- MDRD equatio n with creatinine calibration to IDMS(NKDEP) eGFR not recommended for drug dose adjustment GFR/1.73 sq M predicted among blacks MDRD (S/P/Bld) [Vol rate/Area] mL/min/{1.73_m2} >60 mL/min [place] Glucose [Mass/Vol] 113 mg/dL High 70 - 100 mg/dL [place] Interpretation and review of laboratory results Abnormal [place] Potassium [Moles/Vol] 3.2 mmol/L Low 3.5 - 5.1 mmol/L [place] Sodium [Moles/Vol] 135 mmol/L 135 - 145 mmol/L [place] Urea nitrogen [Mass/Vol] 16 mg/dL 7 - 20 mg/d L [place] Test Performed by [facility], [address], [place], [place] [address] [place] CBC Auto Differentialon 05-0 Absolute Baso # 0.1 10*3/uL 0 - 0.2 10*3/uL [place] Absolute Neut # 8.4 10*3/uL High 1.8 - 7 10*3/uL [place] Basophils/100 WBC (Bld) 0.7 % 0 - 2 % [place] Eosinophils (Bld) [#/Vol] 0.2 10*3/uL 0 - 0.5 10*3/uL [place] Eosinophils/100 WBC (Bld) 1.8 % 1 - 6 % [place] Erythrocyte distribution width (RBC) [Ratio] 15.0 % High 11.5 - 14.5 % [place] Granulocytes/100 WBC (Bld) 75.2 % 40 - 80 % [place] Hematocrit (Bld) [Volume fraction] 27.1 % Low 35 - 47 % [place] Hemoglobin (Bld) [Mass/Vol] 8.8 g/dL Low 11.7 - 16 g/dL [place] Interpretation and review of laboratory results Abnormal [place] Lymphocytes (Bld) [#/Vol] 1.2 10*3/uL 1 - 4.3 10*3/uL [place] Lymphocytes/100 WBC (Bld) 11.1 % Low 20 - 40 % [place] MCH (RBC) [Entitic mass] 31.6 pg 26 - 34 pg [place] MCHC (RBC) [Mass/Vol] 32.5 % 32 - 36 % [place] MCV (RBC) [Entitic vol] 97.3 fL 79 - 98 fL [place], [place] Monocytes (Bld) [#/Vol] 1.2 10*3/uL High 0 - 0.8 10*3/uL [place] Monocytes/100 WBC (Bld) 11.2 % High 2 - 10 % [place] Platelet mean volume (Bld) [Entitic vol] 8.7 fL 7.4 - 10.4 fL [place] Platelets (Bld) [#/Vol] 228 10*3/uL 140 - 440 10*3/uL [place] RBC (Bld) [#/Vol] 2.79 10*6/uL Low 3.8 - 5.2 10*6/uL [place] WBC (Bld) [#/Vol] 11.1 10*3/uL High 3.6 - 10.7 10*3/uL [place] Test Performed by [facility], [address], [place], [place] [address] [place] Culture, Blood 0 Blood Culture, Routine No growth at 5 days. [place] Test Performed by [facility], [address] [place] [address] Specimen Source Comment:Blood [place] Culture, Respiratoryon 10-07 Interpretation and review of laboratory results Abnormal [place] Respiratory Culture Corynebacterium striatum Abnormal [place] Respiratory Culture Many Possible identification For identification and/or sensitivity, refer to culture collected on: 10/05/2019 at 0837, ([id number] ). [place] Respiratory Culture Staphylococcus aureus Abnormal [place] Respiratory Culture Moderate For identification and/or sensitivity, refer to culture collected on: 10/05/2019 at 0837 ([id number]) [place] Test Performed by [facility] [employer] [employer] [address] [address] Specimen Source Comment:BAL- Right [place] Interpretation and review of laboratory results Abnormal [place] Respiratory Culture Many Possible identification [place] Respiratory Culture Corynebacterium striatum Abnormal [place] Respiratory Culture Many Negative for PBP2a (MSSA). [place] Respiratory Culture Staphylococcus aureus Abnormal [place] Respiratory Culture Rare normal respiratory naomi. Abnormal [place] Test Performed by [facility], [address] [place] [id number] Specimen Source Comment:Sputum [place] ECHO Complete 2D W Doppler W Coloron 10-08-2019 Left ventricular Ejection fraction 61 [place] LVEF MODALITY ECHO [place], [facility] Incoming Cardiology Results From [facility] - 10/08/2019 1:21 PM EDT TRANSTHORACIC ECHOCARDIOGRAM PATIENT: Charlie Nguyen STUDY DATE: 10/08/2019 : 1955 AGE: 64 HT/WT: 175.3 cm (69 122.5 kg in) (269.4 lb) GENDER: F BP: 116 / 65 LOCATION: [facility] PATIENT Inpatient [facility] STATUS: *ORDERING PHYSICIAN: * Rajendra Kim *READING PHYSICIAN: * [place], ThelmaDRIVER'S LICENSE EXAMINER: * MD LIZETTE Hobbs -------- INDICATIONS: Hypoxia. [...] Edmar Atkinson MD 10/08/2019 13:21 Prior Signatures: [facility], [place] TRANSTHORACIC ECHOCARDIOGRAM PATIENT: Charlie Nguyen STUDY DATE: 10/08/2019 : 1955 AGE: 64 HT/WT: 175.3 cm (69 122.5 kg in) (269.4 lb) GENDER: F BP: 116 / 65 LOCATION: [facility] PATIENT Inpatient [facility] STATUS: *ORDERING PHYSICIAN: * Rajendra Kim *READING PHYSICIAN: * [place], *DRIVER'S LICENSE EXAMINER: * Brandi Hyatt MD [facility] [...] Edmar Atkinson MD 10/08/2019 13:21 Prior Signatures: [employer] EKG 12 Leadon 10-08-2019 [facility] Test Date: 2019-10-07 Pat Name: Charlie Nguyen [facility] Room: 232 Gender: F Overlock Sleeve Setter: GISELLE : 1955 Requested By: NICA SAL Order Number: [id number] Reading MD: Denver Lantigua Measurements Intervals [place] Rate: 72 P: 35 MI: 180 QRS: 2 QRSD: 112 T: 17 QT: 420 QTc: 460 Interpretive Statements SINUS RHYTHM Compared to ECG 10/07/2019 07:55:13 No significant changes Electronically Signed On 10-08-2019 13:12:36 EDT by [place] Lantigua [facility] [place], [facility] Incoming Cardiology Results From [facility] - 10/08/2019 1:13 PM EDT [facility] Test Date: 2019-10-07 Pat Name: Charlie Nguyen Department: HICU Room: 232 Gender: F Overlock Sleeve Setter: GISELLE : 1955 Requested By: NICA SAL Order Number: [id number] Reading MD: Denver Lantigua Measurements Intervals [place] Rate: 72 P: 35 MI: 180 QRS: 2 QRSD: 112 T: 17 QT: 420 QTc: 460 Interpretive Statements SINUS RHYTHM Compared to ECG 10/07/2019 07:55:13 No significant changes Electronically Signed On 10-08-2019 13:12:36 EDT by [place] Lantigua [place] Hemoglobin and Hematocrit, B loodon 10-08-2019 Hematocrit (Bld) [Volume fraction] 34.3 % Low 35 - 47 % [place] Hemoglobin (Bld) [Mass/Vol] 11.4 g/dL Low 11.7 - 16 g/dL [place] Interpretation and review of laboratory results Abnormal [place] Test Performed by [facility], [address] Hematocrit (Bld) [Volume fraction] 31.9 % Low 35 - 47 % [place] Hemoglobin (Bld) [Mass/Vol] 10.6 g/dL Low 11.7 - 16 g/dL [place] Interpretation and review of laboratory results Abnormal [place] Test Performed by [facility], [facility] [address] Magnesiumon 10-08-2019 Interpretation and review of laboratory results Abnormal [place] Magnesium [Mass/Vol] 1.3 mg/dL Low 1.6 - 2 .3 mg/dL [place] Otheron 10-08-2019 Test Performed by [employer] [facility], [address] POCT Arterialon 10-08-2019 Base Excess, Arterial 0.8 mmol/L -3 - 3 mmol/L [place] HCO3, Arterial 24.2 mmol/L 21 - 25 mmol/L [place] Interpretation and review of laboratory results Abnormal [place] Oxygen saturation in Blood 93.9 % Low 95 - 100 % [place] pCO2, Arterial 33.7 mm[Hg] Low 35 - 45 mm[Hg] [place] pH, Arterial 7.464 [place] pO2, Arterial 65.5 mm[Hg] Low 80 - 100 mm[Hg] [place] Sodium [Moles/Vol] 50 mmol/L [place] Comment on above: Performed by CLIA ID : [id number] [place], [place] TCO2, Arterial 25.3 mmol/L 23 - 27 mmol/L [place] Test Performed by [facility], [facility] [address] [place], [place] [address] [place] Phosphoruson 10-08-2019 Phosphate [Mass/Vol] 2.8 mg/dL 2.5 - 4 .5 mg/dL [place] XR CHEST PORTABLEon 10-08-19 Patient Name: CHARLIE NGUYEN ---Diagnostic Radiology--- Exam Date/Time 10/08/2019 10:52:00 EDT Exam CR Chest Portable Ordering Physician DES ROMERO Accession Number [id number] CPT4 Codes 79844 () Reason For Exam central line placement [...] JEFFREY Transcribed Date and Time: 10/08/2019 11:13 [place], [facility] Incoming Radiology Results From [facility] - 10/08/2019 11:13 AM EDT Patient Name: CHARLIE NGUYEN ---Diagnostic Radiology--- Exam Date/Time 10/08/2019 10:52:00 EDT Exam CR Chest Portable Ordering Physician DES ROMERO Accession Number [id number] CPT4 Codes 18931 () Reason For Exam central line placement [...] JEFFREY Transcribed Date and Time: 10/08/2019 11:13 [place] Basic Metabolic Panelon 05-0 Anion gap [Moles/Vol] 6 mmol/L [place] Calcium [Mass/Vol] 6.7 mg/dL Low 8.4 - 10. 4 mg/dL [place] Chloride [Moles/Vol] 108 mmol/L High 98 - 10 7 mmol/L [place] CO2 [Moles/Vol] 22 mmol/L 22 - 30 mmol/L [place] Creatinine [Mass/Vol] 0.42 mg/dL Low 0.52 - 1.25 mg/dL [place] EGFR IF NonAfrican [place] >60.0 >60 mL/min [facility], [place] Comment on above: Source- MDRD equatio n with creatinine calibration to IDMS(NKDEP) eGFR not recommended for drug dose adjustment GFR/1.73 sq M predicted among blacks MDRD (S/P/Bld) [Vol rate/Area] mL/min/{1.73_m2} >60 mL/min [facility], [place] Glucose [Mass/Vol] 103 mg/dL High 70 - 100 mg/dL [place] Interpretation and review of laboratory results Abnormal [place] Potassium [Moles/Vol] 3.3 mmol/L Low 3.5 - 5.1 mmol/L [place] Sodium [Moles/Vol] 136 mmol/L 135 - 145 mmol/L [facility], [place] Urea nitrogen [Mass/Vol] 17 mg/dL 7 - 20 mg/d L [place] Test Performed by [facility] [employer] [facility], [address] [place] [address] [place] Anion gap [Moles/Vol] 6 mmol/L [facility], [place] Calcium [Mass/Vol] 7.5 mg/dL Low 8.4 - 10. 4 mg/dL [place] Chloride [Moles/Vol] 106 mmol/L 98 - 10 7 mmol/L [facility], [place] CO2 [Moles/Vol] 25 mmol/L 22 - 30 mmol/L [place] Creatinine [Mass/Vol] 0.55 mg/dL 0.52 - 1.25 mg/dL [facility], [place] EGFR IF NonAfrican [place] >60.0 >60 mL/min [place] Comment on above: Source- MDRD equatio n with creatinine calibration to IDMS(NKDEP) eGFR not recommended for drug dose adjustment GFR/1.73 sq M predicted among blacks MDRD (S/P/Bld) [Vol rate/Area] mL/min/{1.73_m2} >60 mL/min [facility], [place] Glucose [Mass/Vol] 114 mg/dL High 70 - 100 mg/dL [facility], [place] Interpretation and review of laboratory results Abnormal [place] Potassium [Moles/Vol] 3.4 mmol/L Low 3.5 - 5.1 mmol/L [place] Sodium [Moles/Vol] 138 mmol/L 135 - 145 mmol/L [place] Urea nitrogen [Mass/Vol] 17 mg/dL 7 - 20 mg/d L [place] CBC Auto Differentialon 05-0 8 Absolute Baso # 0.0 10*3/uL 0 - 0.2 10*3/uL [place] Absolute Neut # 8.6 10*3/uL High 1.8 - 7 10*3/uL [place] Basophils/100 WBC (Bld) 0.4 % 0 - 2 % [place] Eosinophils (Bld) [#/Vol] 0.2 10*3/uL 0 - 0.5 10*3/uL [place] Eosinophils/100 WBC (Bld) 1.7 % 1 - 6 % [place] Erythrocyte distribution width (RBC) [Ratio] 15.2 % High 11.5 - 14.5 % [place] Granulocytes/100 WBC (Bld) 78.3 % 40 - 80 % [place] Hematocrit (Bld) [Volume fraction] 34.1 % Low 35 - 47 % [place] Hemoglobin (Bld) [Mass/Vol] 11.3 g/dL Low 11.7 - 16 g/dL [place] Interpretation and review of laboratory results Abnormal [place] Lymphocytes (Bld) [#/Vol] 1.3 10*3/uL 1 - 4.3 10*3/uL [place] Lymphocytes/100 WBC (Bld) 11.8 % Low 20 - 40 % [place] MCH (RBC) [Entitic mass] 32.2 pg 26 - 34 pg [place] MCHC (RBC) [Mass/Vol] 33.2 % 32 - 36 % [place] MCV (RBC) [Entitic vol] 96.9 fL 79 - 98 fL [place] Monocytes (Bld) [#/Vol] 0.9 10*3/uL High 0 - 0.8 10*3/uL [place] Monocytes/100 WBC (Bld) 7.8 % 2 - 10 % [place] Platelet mean volume (Bld) [Entitic vol] 8.8 fL 7.4 - 10.4 fL [place] Platelets (Bld) [#/Vol] 204 10*3/uL 140 - 440 10*3/uL [place] RBC (Bld) [#/Vol] 3.52 10*6/uL Low 3.8 - 5.2 10*6/uL [place] WBC (Bld) [#/Vol] 11.0 10*3/uL High 3.6 - 10.7 10*3/uL [place] Test Performed by [facility], [address] [place], [place] [id number] [place] [address] EKG 12 [place] 10-07-2019 [facility] Test Date: 2019-10-06 Pat Name: Charlie Nguyen [facility]: 232 Gender: F Overlock Sleeve Setter: VANESSA : 1955 Requested By: NICA SAL Order Number: [id number] Reading MD: Kurtis Urbina Measurements Intervals [place] Rate: 73 P: 35 MI: 168 QRS: 17 QRSD: 104 T: 42 QT: 400 QTc: 441 Interpretive Statements SINUS RHYTHM mildly widened QRS complex VENTRICULAR PREMATURE COMPLEX Electronically Signed On 10-07-2019 13:02:46 EDT by Kurtis Urbina [place], [facility] Incoming Cardiology Results From [facility] - 10/07/2019 1:03 PM EDT [facility] Test Date: 2019-10-06 Pat Name: Charlie Hicksell [facility] Room: 232 Gender: F Overlock Sleeve Setter: VANESSA : 1955 Requested By: NICA SAL Order Number: [id number] Reading MD: Kurtis Urbina Measurements Intervals [place] Rate: 73 P: 35 MI: 168 QRS: 17 QRSD: 104 T: 42 QT: 400 QTc: 441 Interpretive Statements SINUS RHYTHM mildly widened QRS complex VENTRICULAR PREMATURE COMPLEX Electronically Signed On 10-07-2019 13:02:46 EDT by Kurtis Urbina [facility] Incoming Cardiology Results From [facility] - 10/07/2019 12:57 PM EDT [facility] Test Date: 2019-10-05 Pat Name: Charlie Nguyen Department: 03 Room: 232 Gender: F Overlock Sleeve Setter: GISELLE : 1955 Requested By: Venafi Order Number: [id number] Reading MD: Kurtis Urbina Measurements Intervals [place] Rate: 70 P: 50 MI: 164 QRS: 29 QRSD: 106 T: 44 QT: 388 QTc: 419 Interpretive Statements SINUS RHYTHM VENTRICULAR TRIGEMINY BORDERLINE INTRAVENTRICULAR CONDUCTION DELAY Electronically Signed On 10-07-2019 12:56:39 EDT by Kurtis Urbina [facility] [employer] [facility] Test Date: 2019-10-05 Pat Name: Charlie Patrick Department: 03 Room: 232 Gender: F Overlock Sleeve Setter: GISELLE : 1955 Requested By: NephositySCH Order Number: [id number] Reading MD: Kurtis Urbina Measurements Intervals [place] Rate: 70 P: 50 MI: 164 QRS: 29 QRSD: 106 T: 44 QT: 388 QTc: 419 Interpretive Statements SINUS RHYTHM VENTRICULAR TRIGEMINY BORDERLINE INTRAVENTRICULAR CONDUCTION DELAY Electronically Signed On 10-07-2019 12:56:39 EDT by Kurtis Urbina [facility] Incoming Cardiology Results From [facility] - 10/07/2019 12:37 PM EDT [facility] [employer] [facility] Test Date: 2019-10-05 Pat Name: Charlie Hicksell [facility] Room: 232 Gender: F Overlock Sleeve Setter: RE : 1955 Requested By: NICA Conf[employer]SCH Order Number: [id number] Reading MD: Kurtis Urbina Measurements Intervals [place] Rate: 115 P: 41 MI: 168 QRS: 4 QRSD: 104 T: 56 QT: 320 QTc: 443 Interpretive Statements SINUS TACHYCARDIA nonspecific intraventricular conduction delay BORDERLINE R WAVE PROGRESSION, ANTERIOR LEADS Electronically Signed On 10-07-2019 12:36:21 EDT by Kurtis Urbina [facility] Test Date: 2019-10-05 Pat Name: Charlie Nguyen Department: [facility] Room: 232 Gender: F Overlock Sleeve Setter: VANESSA : 1955 Requested By: NICA Conf[employer]SCH Order Number: [id number] Reading MD: Kurtis Urbina Measurements Intervals [place] Rate: 115 P: 41 MI: 168 QRS: 4 QRSD: 104 T: 56 QT: 320 QTc: 443 Interpretive Statements SINUS TACHYCARDIA nonspecific intraventricular conduction delay BORDERLINE R WAVE PROGRESSION, ANTERIOR LEADS Electronically Signed On 10-07-2019 12:36:21 EDT by Kurtis Urbina [facility] Test Date: 2019-10-06 Pat Name: Charlie Nguyen Department: [facility] Room: 232 Gender: F Overlock Sleeve Setter: GISELLE : 1955 Requested By: NICA ConfabbSCH Order Number: [id number] Reading MD: Tara Mari Measurements Intervals [place] Rate: 68 P: 32 MI: 180 QRS: 0 QRSD: 104 T: 16 QT: 432 QTc: 460 Interpretive Statements SINUS RHYTHM Compared to ECG 10/06/2019 07:54:36 Ventricular premature complex(es) no longer present Electronically Signed On 10-07-2019 12:16:42 EDT by Tara [facility] Incoming Cardiology Results From [facility] - 10/07/2019 12:17 PM EDT [facility] Test Date: 2019-10-06 Pat Name: Charlie Nguyen Department: [facility] Room: 232 Gender: F Overlock Sleeve Setter: GISELLE : 1955 Requested By: NICA ConfabbSCH Order Number: [id number] Reading MD: Tara Mari Measurements Intervals [place] Rate: 68 P: 32 MI: 180 QRS: 0 QRSD: 104 T: 16 QT: 432 QTc: 460 Interpretive Statements SINUS RHYTHM Compared to ECG 10/06/2019 07:54:36 Ventricular premature complex(es) no longer present Electronically Signed On 10-07-2019 12:16:42 EDT by [facility], [facility] Incoming Cardiology [facility] 10/07/2019 12:13 PM EDT [facility] Test Date: 2019-10-07 Pat Name: Charlie Nguyen Department[facility] Room: 232 Gender: F Overlock Sleeve Setter: RE : 1955 Requested By: NICA SAL Order Number: [id number] Reading MD: Tara Mari Measurements Intervals [place] Rate: 66 P: 57 MI: 176 QRS: 6 QRSD: 108 T: 18 QT: 444 QTc: 466 Interpretive Statements SINUS RHYTHM BORDERLINE INTRAVENTRICULAR CONDUCTION DELAY Compared to ECG 10/06/2019 20:43:01 No significant changes Electronically Signed On 10-07-2019 12:12:42 EDT by [facility], [facility] Test Date: 2019-10-07 Pat Name: Charlie Nguyen Department: [facility] Room: 232 Gender: F Overlock Sleeve Setter: RE : 1955 Requested By: NICA SAL Order Number: [id number] Reading MD: Tara Mari Measurements Intervals [place] Rate: 66 P: 57 MI: 176 QRS: 6 QRSD: 108 T: 18 QT: 444 QTc: 466 Interpretive Statements SINUS RHYTHM BORDERLINE INTRAVENTRICULAR CONDUCTION DELAY Compared to ECG 10/06/2019 20:43:01 No significant changes Electronically Signed On 10-07-2019 12:12:42 EDT by [facility] Test Date: 2019-10-03 Pat Name: Charlie Nguyen Department: 3 Room: 232 Gender: F Overlock Sleeve Setter: [place] : 1955 Requested By: RAJENDRA KIM Order Number: [id number] Reading MD: Kurtis Hi Measurements Intervals [place] Rate: 103 P: 7 MI: 160 QRS: -7 QRSD: 108 T: 222 QT: 364 QTc: 477 Interpretive Statements SINUS TACHYCARDIA BORDERLINE INTRAVENTRICULAR CONDUCTION DELAY NONSPECIFIC T ABNORMALITIES, INFERIOR LEADS Compared to ECG 10/03/2019 07:51:05 T-wave abnormality now present Sinus rhythm no longer present Left ventricular hypertrophy no longer present Electronically Signed On 10-07-2019 11:54:11 EDT by Kurtis Hi [place] [facility] Results From [facility] - 10/07/2019 11:55 AM EDT [facility] Test Date: 2019-10-03 Pat Name: Charlie Nguyen Department: 3 Room: 232 Gender: F Overlock Sleeve Setter: GISELLE : 1955 Requested By: RAJENDRA KIM Order Number: [id number] Reading MD: Kurtis Hi Measurements Intervals [place] Rate: 103 P: 7 MI: 160 QRS: -7 QRSD: 108 T: 222 QT: 364 QTc: 477 Interpretive Statements SINUS TACHYCARDIA BORDERLINE INTRAVENTRICULAR CONDUCTION DELAY NONSPECIFIC T ABNORMALITIES, INFERIOR LEADS Compared to ECG 10/03/2019 07:51:05 T-wave abnormality now present Sinus rhythm no longer present Left ventricular hypertrophy no longer present Electronically Signed On 10-07-2019 11:54:11 EDT by Kurtis Hi [place] Magnesiumon 10-07-2019 Magnesium [Mass/Vol] 1.7 mg/dL 1.6 - 2 .3 mg/dL [place] Otheron 10-07-2019 Test Performed by [facility], [address] [place] [id number] [place] [address] POCT Arterialon 10-07-2019 Base Excess, Arterial 0.1 mmol/L -3 - 3 mmol/L [place] HCO3, Arterial 23.3 mmol/L 21 - 25 mmol/L [place] Interpretation and review of laboratory results Abnormal [place] Oxygen saturation in Blood 95.1 % 95 - 100 % [place] pCO2, Arterial 32.6 mm[Hg] Low 35 - 45 mm[Hg] [place] pH, Arterial 7.462 [place] pO2, Arterial 70.7 mm[Hg] Low 80 - 100 mm[Hg] [place] Sodium [Moles/Vol] 50 mmol/L [place] Comment on above: Performed by LATASHA ID : [id number] [place], [place] TCO2, Arterial 24.3 mmol/L 23 - 27 mmol/L [place] Test Performed by [facility] [employer] [facility], [address], [place], [place] [address] [place] Phosphoruson 10-07-2019 Phosphate [Mass/Vol] 3.0 mg/dL 2.5 - 4 .5 mg/dL [place] Add On Lab Teston 10-06-2019 Sodium [Moles/Vol] Accepted [place] Comment on above: Specimen available & acceptable for analysis. Test Performed by [facility], [address], [place], [place] [address] [place] Basic Metabolic Panelon Anion gap [Moles/Vol] 6 mmol/L [place] Calcium [Mass/Vol] 7.5 mg/dL Low 8.4 - 10. 4 mg/dL [place] Chloride [Moles/Vol] 105 mmol/L 98 - 10 7 mmol/L [place] CO2 [Moles/Vol] 26 mmol/L 22 - 30 mmol/L [place] Creatinine [Mass/Vol] 0.58 mg/dL 0.52 - 1.25 mg/dL [place] EGFR IF NonAfrican [place] >60.0 >60 mL/min [place] Comment on above: Source- MDRD equatio n with creatinine calibration to IDMS(NKDEP) eGFR not recommended for drug dose adjustment GFR/1.73 sq M predicted among blacks MDRD (S/P/Bld) [Vol rate/Area] mL/min/{1.73_m2} >60 mL/min [place] Glucose [Mass/Vol] 85 mg/dL 70 - 100 mg/dL [place] Interpretation and review of laboratory results Abnormal [place] Potassium [Moles/Vol] 3.8 mmol/L 3.5 - 5.1 mmol/L [place] Sodium [Moles/Vol] 137 mmol/L 135 - 145 mmol/L [place] Urea nitrogen [Mass/Vol] 17 mg/dL 7 - 20 mg/d L [place] Test Performed by [facility] [employer] [facility], [address], [place], [place] [address] [place] Anion gap [Moles/Vol] 7 mmol/L [place] Calcium [Mass/Vol] 7.7 mg/dL Low 8.4 - 10. 4 mg/dL [place] Chloride [Moles/Vol] 104 mmol/L 98 - 10 7 mmol/L [place] CO2 [Moles/Vol] 26 mmol/L 22 - 30 mmol/L [place] Creatinine [Mass/Vol] 0.55 mg/dL 0.52 - 1.25 mg/dL [place] EGFR IF NonAfrican [place] >60.0 >60 mL/min [place] Comment on above: Source- MDRD equatio n with creatinine calibration to IDMS(NKDEP) eGFR not recommended for drug dose adjustment GFR/1.73 sq M predicted among blacks MDRD (S/P/Bld) [Vol rate/Area] mL/min/{1.73_m2} >60 mL/min [place] Glucose [Mass/Vol] 89 mg/dL 70 - 100 mg/dL [place] Interpretation and review of laboratory results Abnormal [place] Potassium [Moles/Vol] 4.0 mmol/L 3.5 - 5.1 mmol/L [place] Sodium [Moles/Vol] 137 mmol/L 135 - 145 mmol/L [place] Urea nitrogen [Mass/Vol] 18 mg/dL 7 - 20 mg/d L [place] Test Performed by [employer] [facility], [address], [place], [place] [address] [place] CBC Auto Differentialon 05-0 Erythrocyte distribution width (RBC) [Ratio] 15.3 % High 11.5 - 14.5 % [place] Hematocrit (Bld) [Volume fraction] 34.5 % Low 35 - 47 % [place] Hemoglobin (Bld) [Mass/Vol] 11.2 g/dL Low 11.7 - 16 g/dL [place] Interpretation and review of laboratory results Abnormal [place] MCH (RBC) [Entitic mass] 31.7 pg 26 - 34 pg [place] MCHC (RBC) [Mass/Vol] 32.4 % 32 - 36 % [place] MCV (RBC) [Entitic vol] 97.8 fL 79 - 98 fL [place] Platelet mean volume (Bld) [Entitic vol] 8.9 fL 7.4 - 10.4 fL [place] Platelets (Bld) [#/Vol] 146 10*3/uL 140 - 440 10*3/uL [place] RBC (Bld) [#/Vol] 3.53 10*6/uL Low 3.8 - 5.2 10*6/uL [place] WBC (Bld) [#/Vol] 11.6 10*3/uL High 3.6 - 10.7 10*3/uL [place] Test Performed by [facility], [address], [place], [place] [address] [place] Gram Stainon 10-06-2019 INR Coag (Bld) [Relative time] Many polymorphonuclear cells/lpf. Rare epithelial cells/lpf. Rare gram positive cocci. [place] Test Performed by [facility], [address] [place] [id number] Specimen Source Comment:BAL- Right [place] Magnesiumon 10-06-2019 Magnesium [Mass/Vol] 1.8 mg/dL 1.6 - 2 .3 mg/dL [place] Test Performed by [facility], [address], [place], [place] [address] [place] Manual Differentialon 2019 Absolute Baso # 0.0 10*3/uL 0 - 0.2 10*3/uL [place] Absolute Eos # 0.2 10*3/uL 0 - 0.5 10*3/uL [place] Absolute Lymph # 0.9 10*3/uL Low 1.1 - 4.5 10*3/uL [place] Absolute Bertie # 0.3 10*3/uL 0.2 - 1.1 10*3/uL [facility], [place] Absolute Neut # 10.1 10*3/uL High 2.2 - 8.2 10*3/uL [facility], [place] Anisocytosis Ql (Bld) Slight [facility], [place] Bands 0 % 0 - 3 % [facility] Basophils 0 % 0 - 2 % [facility] Eosinophils 2 % 1 - 6 % [facility] Interpretation and review of laboratory results Abnormal [place] Lymphocytes 8 % Low 20 - 40 % [facility] Macrocytosis Slight [facility] Monocytes 3 % 2 - 10 % [facility] RBC morphology finding Nom (Bld) ABNORMAL [facility], [place] Seg Neutrophils 87 % High 40 - 80 % [facility], [place] TOTAL CELLS COUNTED 100 [place] Test Performed by [facility] [employer] [facility], [address] [place], [place] [address] [place] POCT Arterialon 10-06-2019 Base Excess, Arterial 0.3 mmol/L -3 - 3 mmol/L [place] HCO3, Arterial 23.1 mmol/L 21 - 25 mmol/L [place] Interpretation and review of laboratory results Abnormal [place] Oxygen saturation in Blood 94.8 % Low 95 - 100 % [place] pCO2, Arterial 30.9 mm[Hg] Low 35 - 45 mm[Hg] [place] pH, Arterial 7.482 [place] pO2, Arterial 67.6 mm[Hg] Low 80 - 100 mm[Hg] [place] Sodium [Moles/Vol] 50 mmol/L [place] Comment on above: Performed by LATASHA ID : [id number] [place], [place] TCO2, Arterial 24.1 mmol/L 23 - 27 mmol/L [place] Test [facility] by [facility], [address] [place], [place] [address] [place] Base Excess, Arterial 3.2 mmol/L High -3 - 3 mmol/L [place] HCO3, Arterial 27.1 mmol/L High 21 - 25 mmol/L [place] Interpretation and review of laboratory results Abnormal [place] Oxygen saturation in Blood 92.6 % Low 95 - 100 % [place] pCO2, Arterial 38.1 mm[Hg] 35 - 45 mm[Hg] [place] pH, Arterial 7.460 [place] pO2, Arterial 62.0 mm[Hg] Low 80 - 100 mm[Hg] [place] Sodium [Moles/Vol] 50 mmol/L [place] Comment on above: Performed by CLIA ID : [id number] [place], [place] TCO2, Arterial 28.3 mmol/L High 23 - 27 mmol/L [place] Test Performed by [facility], [address] [place], [place] [address] [place] RENAL + LIVER PROFon 020 Albumin [Mass/Vol] 2.8 g/dL Low 3.5 - 5 g/dL [place] ALP [Catalytic activity/Vol] 132 U/L High 38 - 126 U/L [place] ALT [Catalytic activity/Vol] 14 U/L 0 - 34 U/L [place] Comment on above: The ALT test is perf ormed by an updated assay method. Please note that the reference intervals have been changed and are now sex specific. Anion gap [Moles/Vol] 6 mmol/L [place] AST [Catalytic activity/Vol] 26 U/L 15 - 46 U/L [place] Bilirubin Ql (U) 1.0 mg/dL 0.2 - 1.3 mg/dL [place] Bilirubin.direct [Mass/Vol] 0.0 mg/dL 0 - 0.3 mg/dL [place] Calcium [Mass/Vol] 7.8 mg/dL Low 8.4 - 10. 4 mg/dL [place] Chloride [Moles/Vol] 103 mmol/L 98 - 10 7 mmol/L [place] CO2 [Moles/Vol] 27 mmol/L 22 - 30 mmol/L [place] Creatinine [Mass/Vol] 0.56 mg/dL 0.52 - 1.25 mg/dL [place] EGFR IF NonAfrican [place] >60.0 >60 mL/min [place] Comment on above: Source- MDRD equatio n with creatinine calibration to IDMS(NKDEP) eGFR not recommended for drug dose adjustment GFR/1.73 sq M predicted among blacks MDRD (S/P/Bld) [Vol rate/Area] mL/min/{1.73_m2} >60 mL/min [place] Glucose [Mass/Vol] 99 mg/dL 70 - 100 mg/dL [place] Interpretation and review of laboratory results Abnormal [place] Phosphate [Mass/Vol] 2.8 mg/dL 2.5 - 4 .5 mg/dL [place] Potassium [Moles/Vol] 3.9 mmol/L 3.5 - 5.1 mmol/L [place] Protein [Mass/Vol] 6.2 g/dL Low 6.3 - 8.2 g/dL [place] Sodium [Moles/Vol] 136 mmol/L 135 - 145 mmol/L [place] Urea nitrogen [Mass/Vol] 17 mg/dL 7 - 20 mg/d L [place] Test Performed by [facility], [address] [place], [place] [id number] [place] [address] Add On Lab Teston 10-05-2019 Sodium [Moles/Vol] Accepted [place] Comment on above: Specimen available & acceptable for analysis. Test Performed by [facility], [address] [place], [place] [address] [place] Basic Metabolic Panelon Anion gap [Moles/Vol] 5 mmol/L [place] Calcium [Mass/Vol] 7.4 mg/dL Low 8.4 - 10. 4 mg/dL [place] Chloride [Moles/Vol] 104 mmol/L 98 - 10 7 mmol/L [place] CO2 [Moles/Vol] 27 mmol/L 22 - 30 mmol/L [place] Creatinine [Mass/Vol] 0.48 mg/dL Low 0.52 - 1.25 mg/dL [place] EGFR IF NonAfrican Iraqi >60.0 >60 mL/min [place] Comment on above: Source- MDRD equatio n with creatinine calibration to IDMS(NKDEP) eGFR not recommended for drug dose adjustment GFR/1.73 sq M predicted among blacks MDRD (S/P/Bld) [Vol rate/Area] mL/min/{1.73_m2} >60 mL/min [place] Glucose [Mass/Vol] 91 mg/dL 70 - 100 mg/dL [place] Interpretation and review of laboratory results Abnormal [place] Potassium [Moles/Vol] 3.6 mmol/L 3.5 - 5.1 mmol/L [place] Sodium [Moles/Vol] 135 mmol/L 135 - 145 mmol/L [place] Urea nitrogen [Mass/Vol] 15 mg/dL 7 - 20 mg/d L [place] Test Performed by [facility], [address] [place] [address] [place] Anion gap [Moles/Vol] 4 mmol/L [place] Calcium [Mass/Vol] 6.0 mg/dL Low 8.4 - 10. 4 mg/dL [place] Chloride [Moles/Vol] 111 mmol/L High 98 - 10 7 mmol/L [place] CO2 [Moles/Vol] 24 mmol/L 22 - 30 mmol/L [place] Creatinine [Mass/Vol] 0.43 mg/dL Low 0.52 - 1.25 mg/dL [place] EGFR IF NonAfrican Iraqi >60.0 >60 mL/min [place] Comment on above: Source- MDRD equatio n with creatinine calibration to IDMS(NKDEP) eGFR not recommended for drug dose adjustment GFR/1.73 sq M predicted among blacks MDRD (S/P/Bld) [Vol rate/Area] mL/min/{1.73_m2} >60 mL/min [place] Glucose [Mass/Vol] 87 mg/dL 70 - 100 mg/dL [place] Interpretation and review of laboratory results Abnormal [place] Potassium [Moles/Vol] 3.5 mmol/L 3.5 - 5.1 mmol/L [place] Sodium [Moles/Vol] 138 mmol/L 135 - 145 mmol/L [place] Urea nitrogen [Mass/Vol] 13 mg/dL 7 - 20 mg/d L [place] Test Performed by [facility] [employer] [facility], [address] [place] [address] [place] Anion gap [Moles/Vol] 4 mmol/L [place] Calcium [Mass/Vol] 6.3 mg/dL Low 8.4 - 10. 4 mg/dL [place] Chloride [Moles/Vol] 106 mmol/L 98 - 10 7 mmol/L [place] CO2 [Moles/Vol] 26 mmol/L 22 - 30 mmol/L [place] Creatinine [Mass/Vol] 0.47 mg/dL Low 0.52 - 1.25 mg/dL [place] EGFR IF NonAfrican [place] >60.0 >60 mL/min [place] Comment on above: Source- MDRD equatio n with creatinine calibration to IDMS(NKDEP) eGFR not recommended for drug dose adjustment GFR/1.73 sq M predicted among blacks MDRD (S/P/Bld) [Vol rate/Area] mL/min/{1.73_m2} >60 mL/min [place] Glucose [Mass/Vol] 93 mg/dL 70 - 100 mg/dL [place] Interpretation and review of laboratory results Abnormal [place] Potassium [Moles/Vol] 3.5 mmol/L 3.5 - 5.1 mmol/L [place] Sodium [Moles/Vol] 136 mmol/L 135 - 145 mmol/L [place] Urea nitrogen [Mass/Vol] 14 mg/dL 7 - 20 mg/d L [place] Test Performed by [facility], [address] [place], [place] [address] [place] CBC Auto Differentialon Erythrocyte distribution width (RBC) [Ratio] 15.3 % High 11.5 - 14.5 % [place] Hematocrit (Bld) [Volume fraction] 33.3 % Low 35 - 47 % [place] Hemoglobin (Bld) [Mass/Vol] 10.5 g/dL Low 11.7 - 16 g/dL [place] Interpretation and review of laboratory results Abnormal [place] MCH (RBC) [Entitic mass] 31.1 pg 26 - 34 pg [place] MCHC (RBC) [Mass/Vol] 31.6 % Low 32 - 36 % [place] MCV (RBC) [Entitic vol] 98.5 fL High 79 - 98 fL [place] Platelet mean volume (Bld) [Entitic vol] 9.1 fL 7.4 - 10.4 fL [place] Platelets (Bld) [#/Vol] 131 10*3/uL Low 140 - 440 10*3/uL [place] RBC (Bld) [#/Vol] 3.38 10*6/uL Low 3.8 - 5.2 10*6/uL [place] WBC (Bld) [#/Vol] 11.1 10*3/uL High 3.6 - 10.7 10*3/uL [place] Test Performed by [facility], [address] [place], [place] [address] [place] CTA CHEST W WO CONTRASTon Patient Name: CHARLIE NGUYEN ---CT--- Exam Date/Time 10/05/2019 11:55:25 EDT Exam CTA Chest w/ + w/o Contrast Ordering Physician MD JUDY, RAMI Accession Number [id number] CPT4 Codes 18176 (), Q9967 (CT ISOVUE 370MG/[id number]& ML&1) Reason For Exam pulmonary emboli Report [...] DIANE Transcribed Date and Time: 10/05/2019 12:16 [facility], [place], [place] Incoming Radiology Results From [facility] - 10/05/2019 12:17 PM EDT Patient Name: CHARLIE NGUYEN ---CT--- Exam Date/Time 10/05/2019 11:55:25 EDT Exam CTA Chest w/ + w/o Contrast Ordering Physician MD JUDY, RAJENDRA Accession Number [id number] CPT4 Codes 40400 (), Q9967 (CT ISOVUE 370MG/[id number] ML&1) Reason For Exam pulmonary emboli Report [...] a pleural lipoma Report Dictated on Workstation: [id number] --- Final --- Dictating Physician: MD KELLY DIANE Signed Date and Time: 10/05/2019 12:15 pm Signed by: MD KELLY DIANE Transcribed Date and Time: 10/05/2019 12:16 [place] Calcium, Ionizedon 0 Interpretation and review of laboratory results Abnormal [place] Ionized Ca 3.50 mg/dL Low 4.3 - 5.2 mg/dL [place] pH (Bld) 7.42 [pH] [place] Test Performed by [facility], 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 : 1955 Requested By: NICA [employer] Order Number: [id number] Reading MD: Aldair Chao Measurements Intervals [place] Rate: 99 P: 22 MI: 156 QRS: 5 QRSD: 100 T: 69 QT: 344 QTc: 442 Interpretive Statements SINUS RHYTHM BORDERLINE T WAVE ABNORMALITIES Compared to ECG 10/04/2019 08:40:28 Sinus tachycardia no longer present T-wave abnormality still present Electronically Signed On 10-05-2019 11:00:42 EDT by [place], [place] Rodol[place], [facility] Incoming Cardiology Results From [facility] - 10/05/2019 11:01 AM EDT [facility] Test Date: 2019-10-04 Pat Name: Charlie Nguyen Department: [facility] Room: 232 Gender: F 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 Sleeve Setter: GISELLE : 1955 Requested By: NICA ConfabbSCH Order Number: [id number] Reading MD: Aldair Chao Measurements Intervals [place] Rate: 99 P: 22 MI: 156 QRS: 5 QRSD: 100 T: 69 QT: 344 QTc: 442 Interpretive Statements SINUS RHYTHM BORDERLINE T WAVE ABNORMALITIES Compared to ECG 10/04/2019 08:40:28 Sinus tachycardia no longer present T-wave abnormality still present Electronically Signed On 10-05-2019 11:00:42 EDT by [facility] Test Date: 2019-10-04 Pat Name: Charlie Nguyen [facility]: 232 Gender: F Overlock Sleeve Setter: OTONIEL : 1955 Requested By: NICA SAL Order Number: [id number] Reading MD: Aldair Chao Measurements Intervals [place] Rate: 105 P: 10 MI: 164 QRS: 0 QRSD: 102 T: 259 QT: 308 QTc: 408 Interpretive Statements SINUS TACHYCARDIA LATE PRECORDIAL R/S TRANSITION NONSPECIFIC T ABNORMALITIES, LATERAL LEADS Compared to ECG 10/03/2019 21:59:07 Ventricular premature complex(es) no longer present Myocardial infarct finding no longer present Possible ischemia no longer present T-wave abnormality still present Electronically Signed On 10-05-2019 10:59:16 EDT by [facility], [facility], [facility] Incoming Cardiology Results From [employer] - 10/05/2019 11:00 AM EDT [facility] [employer] [facility] Test Date: 2019-10-04 Pat Name: Charlie Nguyen Department: [facility] Room: 232 Gender: F Overlock Sleeve Setter: OTONIEL : 1955 Requested By: NICA SAL Order Number: [id number] Reading MD: Aldair Chao Measurements Intervals [place] Rate: 105 P: 10 MI: 164 QRS: 0 QRSD: 102 T: 259 QT: 308 QTc: 408 Interpretive Statements SINUS TACHYCARDIA LATE PRECORDIAL R/S TRANSITION NONSPECIFIC T ABNORMALITIES, LATERAL LEADS Compared to ECG 10/03/2019 21:59:07 Ventricular premature complex(es) no longer present Myocardial infarct finding no longer present Possible ischemia no longer present T-wave abnormality still present Electronically Signed On 10-05-2019 10:59:16 EDT by [facility], [facility], [facility] Incoming Cardiology Results From [employer] - 10/05/2019 10:11 AM EDT [facility] [employer] [facility] Test Date: 2019-10-03 Pat Name: Charlie Nguyen Department: [facility] Room: 232 Gender: F Overlock Sleeve Setter: Narayan : 1955 Requested By: NICA SAL Order Number: [id number] Reading MD: Danny Lamb Measurements Intervals [place] Rate: 114 P: 10 MI: 168 QRS: -4 QRSD: 106 T: 202 QT: 316 QTc: 436 Interpretive Statements SINUS TACHYCARDIA MULTIFORM VENTRICULAR PREMATURE COMPLEXES CONSIDER ANTEROSEPTAL INFARCT ABNORMAL T, CONSIDER ISCHEMIA, LATERAL LEADS BASELINE WANDER IN LEAD(S) V4 Electronically Signed On 10-05-2019 10:10:38 EDT by Danny [facility] Test Date: 2019-10-03 Pat Name: Charlie Patrick Department: [facility] Room: 232 Gender: F Overlock Sleeve Setter: Narayan : 1955 Requested By: NICA SAL Order Number: [id number] Reading MD: Danny Miranda Intervals [place] Rate: 114 P: 10 MI: 168 QRS: -4 QRSD: 106 T: 202 QT: 316 QTc: 436 Interpretive Statements SINUS TACHYCARDIA MULTIFORM VENTRICULAR PREMATURE COMPLEXES CONSIDER ANTEROSEPTAL INFARCT ABNORMAL T, CONSIDER ISCHEMIA, LATERAL LEADS BASELINE WANDER IN LEAD(S) V4 Electronically Signed On 10-05-2019 10:10:38 EDT by [place], [place] EKG 12 Lead - Chest Painon 0 10-05-2019 Rodolfo, [facility] Incoming Cardiology Results From [facility] - 10/05/2019 9:42 AM EDT [facility] Test Date: 2019-10-03 Pat Name: Charlie Patrick Department: Room: 232 Gender: F Overlock Sleeve Setter: OTONIEL : 1955 Requested By: LULI MORRIS Order Number: [id number] Reading ANTONIO Miranda Intervals [place] Rate: 79 P: 11 MI: 188 QRS: -22 QRSD: 108 T: 6 QT: 366 QTc: 420 Interpretive Statements SINUS RHYTHM LEFT VENTRICULAR HYPERTROPHY BASELINE WANDER IN LEAD(S) V4 CONSIDER PRIOR AWMI Electronically Signed On 10-05-2019 9:41:32 EDT by [facility], [place] [facility] Test Date: 2019-10-03 Pat Name: Charlie Patrick Department: 01 Room: 232 Gender: F Overlock Sleeve Setter: OTONIEL : 1955 Requested By: LULI MORRIS Order Number: [id number] Reading ANTONIO Miranda Intervals [place] Rate: 79 P: 11 MI: 188 QRS: -22 QRSD: 108 T: 6 QT: 366 QTc: 420 Interpretive Statements SINUS RHYTHM LEFT VENTRICULAR HYPERTROPHY BASELINE WANDER IN LEAD(S) V4 CONSIDER PRIOR AWMI Electronically Signed On 10-05-2019 9:41:32 EDT by Danny Lamb [place], [place] Gram Stainon 10-05-2019 INR Coag (Bld) [Relative time] Many polymorphonuclear cells/lpf. Rare epithelial cells/lpf. Many gram positive cocci in pairs and chains. Moderate gram positive bacilli. Few gram negative bacilli. [place] Test Performed by [facility] [employer] [facility], [address] [place] [address] Specimen Source Comment:Sputum [place] Magnesiumon 10-05-2019 Magnesium [Mass/Vol] 1.7 mg/dL 1.6 - 2 .3 mg/dL [place] Manual Differentialon 2019 Absolute Baso # 0.0 10*3/uL 0 - 0.2 10*3/uL [place] Absolute Eos # 0.1 10*3/uL 0 - 0.5 10*3/uL [place] Absolute Lymph # 0.9 10*3/uL Low 1.1 - 4.5 10*3/uL [place] Absolute Bertie # 0.9 10*3/uL 0.2 - 1.1 10*3/uL [place] Absolute Neut # 9.2 10*3/uL High 2.2 - 8.2 10*3/uL [place] Anisocytosis Ql (Bld) Slight [place] Bands 0 % 0 - 3 % [place] Basophils 0 % 0 - 2 % [place] Eosinophils 1 % 1 - 6 % [place] Interpretation and review of laboratory results Abnormal [place] Lymphocytes 8 % Low 20 - 40 % [place] Monocytes 8 % 2 - 10 % [place] RBC morphology finding Nom (Bld) ABNORMAL [place] Seg Neutrophils 83 % High 40 - 80 % [place] TOTAL CELLS COUNTED 100 [place] Test Performed by [facility], [address], [place], [place] [address] [place] Otheron 10-05-2019 Test Performed by [facility] [employer] [facility], [address], [place], [place] [address] [place] POCT Arterialon 10-05-2019 Base Excess, Arterial 5.7 mmol/L High -3 - 3 mmol/L [place] HCO3, Arterial 29.9 mmol/L High 21 - 25 mmol/L [place] Interpretation and review of laboratory results Abnormal [place] Oxygen saturation in Blood 93.4 % Low 95 - 100 % [place] pCO2, Arterial 41.4 mm[Hg] 35 - 45 mm[Hg] [place] pH, Arterial 7.468 High [place] pO2, Arterial 64.5 mm[Hg] Low 80 - 100 mm[Hg] [place] Sodium [Moles/Vol] 50 mmol/L [place] Comment on above: Performed by CLIA ID : [id number] [place], [place] TCO2, Arterial 31.2 mmol/L High 23 - 27 mmol/L [place] Test Performed by [facility], [facility] [address], [place], [place] [address] [place] Phosphoruson 10-05-2019 Phosphate [Mass/Vol] 2.5 mg/dL 2.5 - 4 .5 mg/dL [place] XR CHEST PORTABLEon 10-05-19 20 [place]olfo, [facility] Incoming Radiology Results From [facility] - 10/05/2019 6:13 AM EDT Patient Name: CHARLIE NGUYEN ---Diagnostic Radiology--- Exam Date/Time 10/05/2019 05:16:10 EDT Exam CR Chest Portable Ordering Physician BENJAMIN SAL ALEXANDER Accession Number [id number] CPT4 Codes 69881 () Reason For Exam respiratory failure Report [...] ALFRED Transcribed Date and Time: 10/05/2019 6:12 [place] Patient Name: CHARLIE NGUYEN ---Diagnostic Radiology--- Exam Date/Time 10/05/2019 05:16:10 EDT Exam CR Chest Portable Ordering Physician BENJAMIN SAL ALEXANDER Accession Number [id number] CPT4 Codes 88494 () Reason For Exam respiratory failure Report [...] ALFRED Transcribed Date and Time: 10/05/2019 6:12 [place], [place] Add On Lab Teston 10-04-2019 Sodium [Moles/Vol] Accepted [place] Comment on above: Specimen available & acceptable for analysis. Test Performed by [facility], [facility] [address] Basic Metabolic Panelon 05-0 Anion gap [Moles/Vol] 5 mmol/L [place] Calcium [Mass/Vol] 7.7 mg/dL Low 8.4 - 10. 4 mg/dL [place] Chloride [Moles/Vol] 97 mmol/L Low 98 - 10 7 mmol/L [place] CO2 [Moles/Vol] 34 mmol/L High 22 - 30 mmol/L [place] Creatinine [Mass/Vol] 0.61 mg/dL 0.52 - 1.25 mg/dL [place] EGFR IF NonAfrican [place] >60.0 >60 mL/min [place] Comment on above: Source- MDRD equatio n with creatinine calibration to IDMS(NKDEP) eGFR not recommended for drug dose adjustment GFR/1.73 sq M predicted among blacks MDRD (S/P/Bld) [Vol rate/Area] mL/min/{1.73_m2} >60 mL/min [place] Glucose [Mass/Vol] 104 mg/dL High 70 - 100 mg/dL [place] Interpretation and review of laboratory results Abnormal [place] Potassium [Moles/Vol] 3.4 mmol/L Low 3.5 - 5.1 mmol/L [place] Sodium [Moles/Vol] 135 mmol/L 135 - 145 mmol/L [place] Urea nitrogen [Mass/Vol] 16 mg/dL 7 - 20 mg/d L [place] Test Performed by [facility], [address] [place] [address] [place] Anion gap [Moles/Vol] 10 mmol/L [place] Calcium [Mass/Vol] 8.3 mg/dL Low 8.4 - 10. 4 mg/dL [place] Chloride [Moles/Vol] 95 mmol/L Low 98 - 10 7 mmol/L [place] CO2 [Moles/Vol] 34 mmol/L High 22 - 30 mmol/L [place] Creatinine [Mass/Vol] 0.68 mg/dL 0.52 - 1.25 mg/dL [place] EGFR IF NonAfrican [place] >60.0 >60 mL/min [place] Comment on above: Source- MDRD equatio n with creatinine calibration to IDMS(NKDEP) eGFR not recommended for drug dose adjustment GFR/1.73 sq M predicted among blacks MDRD (S/P/Bld) [Vol rate/Area] mL/min/{1.73_m2} >60 mL/min [place] Glucose [Mass/Vol] 108 mg/dL High 70 - 100 mg/dL [place] Interpretation and review of laboratory results Abnormal [place] Potassium [Moles/Vol] 3.6 mmol/L 3.5 - 5.1 mmol/L [place] Sodium [Moles/Vol] 138 mmol/L 135 - 145 mmol/L [place] Urea nitrogen [Mass/Vol] 17 mg/dL 7 - 20 mg/d L [place] Test Performed by [facility], [address] [place], [place] [address] [place] Basic Metabolic Panel w/ Ref balaji to MGon 10-04-2019 Anion gap [Moles/Vol] 6 mmol/L [place] Calcium [Mass/Vol] 6.7 mg/dL Low 8.4 - 10. 4 mg/dL [place] Chloride [Moles/Vol] 100 mmol/L 98 - 10 7 mmol/L [place] CO2 [Moles/Vol] 31 mmol/L High 22 - 30 mmol/L [place] Creatinine [Mass/Vol] 0.58 mg/dL 0.52 - 1.25 mg/dL [place] EGFR IF NonAfrican Iraqi >60.0 >60 mL/min [place] Comment on above: Source- MDRD equatio n with creatinine calibration to IDMS(NKDEP) eGFR not recommended for drug dose adjustment GFR/1.73 sq M predicted among blacks MDRD (S/P/Bld) [Vol rate/Area] mL/min/{1.73_m2} >60 mL/min [place] Glucose [Mass/Vol] 116 mg/dL High 70 - 100 mg/dL [place] Interpretation and review of laboratory results Abnormal [place] Potassium [Moles/Vol] 3.3 mmol/L Low 3.5 - 5.1 mmol/L [place] Sodium [Moles/Vol] 137 mmol/L 135 - 145 mmol/L [place] Urea nitrogen [Mass/Vol] 18 mg/dL 7 - 20 mg/d L [place] CBC auto differentialon 05-0 Absolute Baso # 0.1 10*3/uL 0 - 0.2 10*3/uL [place] Absolute Neut # 11.6 10*3/uL High 1.8 - 7 10*3/uL [place] Basophils/100 WBC (Bld) 0.4 % 0 - 2 % M [place] Eosinophils (Bld) [#/Vol] 0.0 10*3/uL 0 - 0.5 10*3/uL [place] Eosinophils/100 WBC (Bld) 0.0 % Low 1 - 6 % [place] Erythrocyte distribution width (RBC) [Ratio] 15.5 % High 11.5 - 14.5 % [place] Granulocytes/100 WBC (Bld) 86.9 % High 40 - 80 % [place] Hematocrit (Bld) [Volume fraction] 37.4 % 35 - 47 % [place] Hemoglobin (Bld) [Mass/Vol] 12.2 g/dL 11.7 - 16 g/dL [place] Interpretation and review of laboratory results Abnormal [place] Lymphocytes (Bld) [#/Vol] 0.8 10*3/uL Low 1 - 4.3 10*3/uL [place] Lymphocytes/100 WBC (Bld) 6.2 % Low 20 - 40 % [place] MCH (RBC) [Entitic mass] 31.7 pg 26 - 34 pg [place] MCHC (RBC) [Mass/Vol] 32.6 % 32 - 36 % [place] MCV (RBC) [Entitic vol] 97.1 fL 79 - 98 fL [place], [place] Monocytes (Bld) [#/Vol] 0.9 10*3/uL High 0 - 0.8 10*3/uL [place] Monocytes/100 WBC (Bld) 6.5 % 2 - 10 % [place] Platelet mean volume (Bld) [Entitic vol] 9.0 fL 7.4 - 10.4 fL [place] Platelets (Bld) [#/Vol] 131 10*3/uL Low 140 - 440 10*3/uL [place] RBC (Bld) [#/Vol] 3.85 10*6/uL 3.8 - 5.2 10*6/uL [place] WBC (Bld) [#/Vol] 13.3 10*3/uL High 3.6 - 10.7 10*3/uL [place] Test Performed by [facility], [address] [place], [place] [id number] [place] [address] COVID-19on 10-04-2019 SARS-CoV-2 Not Detected Expected Result: Not Detected _ Real-time, RT-PCR performed on the [employer] System by the [facility]. Negative results do not preclude SARS-CoV-2 infection and should not be used as the sole basis for treatment or other patient management decisions. This assay was developed by [email or web address] and distributed under an Emergency Use Authorization (EUA) granted by the FDA for the qualitative detection of SARS-CoV-2 nucleic acid. [place] Test Performed by [facility], [address] [place] [address] [place] Magnesiumon 10-04-2019 Magnesium [Mass/Vol] 1.6 mg/dL 1.6 - 2 .3 mg/dL [place] Otheron 10-04-2019 Test Performed by [facility], [address] [place], [place] [address] [place] POCT Arterialon 10-04-2019 Base Excess, Arterial 6.5 mmol/L High -3 - 3 mmol/L [facility] [place], [place] HCO3, Arterial 31.5 mmol/L High 21 - 25 mmol/L [facility] Interpretation and review of laboratory results Abnormal [facility], [place] Oxygen saturation in Blood 94.1 % Low 95 - 100 % [facility] [place] pCO2, Arterial 45.4 mm[Hg] High 35 - 45 mm[Hg] [facility] [place] pH, Arterial 7.448 [facility], [place] pO2, Arterial 69.1 mm[Hg] Low 80 - 100 mm[Hg] [facility] [place], [place] Sodium [Moles/Vol] 60 mmol/L [facility] [place], [place] Comment on above: Performed by CLIA ID : [id number] [place] TCO2, Arterial 32.9 mmol/L High 23 - 27 mmol/L [facility], [place] Test Performed by [facility], [address] [place], [place] [address] [place] Base Excess, Arterial 6.8 mmol/L High -3 - 3 mmol/L [facility] [place] HCO3, Arterial 31.7 mmol/L High 21 - 25 mmol/L [facility] [place] Interpretation and review of laboratory results Abnormal [place] Oxygen saturation in Blood 95.1 % 95 - 100 % [facility] [place] pCO2, Arterial 45.0 mm[Hg] 35 - 45 mm[Hg] [facility] [place] pH, Arterial 7.456 [place] pO2, Arterial 73.2 mm[Hg] Low 80 - 100 mm[Hg] [facility], [place] Sodium [Moles/Vol] 60 mmol/L [facility], [place] Comment on above: Performed by CLIA ID : [id number] [place] TCO2, Arterial 33 mmol/L High 23 - 27 mmol/L [facility], [place] Test Performed by [facility], [address] [place], [place] [address] [facility], [place] Phosphoruson 10-04-2019 Phosphate [Mass/Vol] 3.0 mg/dL 2.5 - 4 .5 mg/dL [place] Procalcitoninon 10-04-2019 Interpretation and review of laboratory results Abnormal [place] Procalcitonin 0.6 ng/mL Abnormal <0.10 [place] Sodium [Moles/Vol] See Below [place], [place] Comment on above: PCT <0.50 = Low risk of severe sepsis and/or septic shock. PCT >2.00 = High risk of severe sepsis and/or septic shock. Test Performed by [employer] [facility], [address] [place] [address] [place] ACETAMINOPHEN LEVELon 2019 Acetaminophen [Mass/Vol] <10.0 10 - 30 ug/mL [place] Acetaminophen Levelon 2019 Acetaminophen [Mass/Vol] <10.0 10 - 30 ug/mL [place] Test Performed by [facility], [address] [place], [place] [address] [place] Basic Metabolic Panelon Anion gap [Moles/Vol] 9 mmol/L [place] Calcium [Mass/Vol] 7.7 mg/dL Low 8.4 - 10. 4 mg/dL [place] Chloride [Moles/Vol] 92 mmol/L Low 98 - 10 7 mmol/L [place] CO2 [Moles/Vol] 34 mmol/L High 22 - 30 mmol/L [place] Creatinine [Mass/Vol] 0.53 mg/dL 0.52 - 1.25 mg/dL [place] EGFR IF NonAfrican Iraqi >60.0 >60 mL/min [place] Comment on above: Source- MDRD equatio n with creatinine calibration to IDMS(NKDEP) eGFR not recommended for drug dose adjustment GFR/1.73 sq M predicted among blacks MDRD (S/P/Bld) [Vol rate/Area] mL/min/{1.73_m2} >60 mL/min [place] Glucose [Mass/Vol] 198 mg/dL High 70 - 100 mg/dL [place] Interpretation and review of laboratory results Abnormal [place] Potassium [Moles/Vol] 2.9 mmol/L Low 3.5 - 5.1 mmol/L [place] Sodium [Moles/Vol] 135 mmol/L 135 - 145 mmol/L [place] Urea nitrogen [Mass/Vol] 23 mg/dL High 7 - 20 mg/d L [place] Test Performed by [employer], [address], [place], [place] [address] [place] Anion gap [Moles/Vol] 10 mmol/L [place] Calcium [Mass/Vol] 8.4 mg/dL 8.4 - 10. 4 mg/dL [place] Chloride [Moles/Vol] 97 mmol/L Low 98 - 10 7 mmol/L [place] CO2 [Moles/Vol] 32 mmol/L High 22 - 30 mmol/L [place] Creatinine [Mass/Vol] 0.73 mg/dL 0.52 - 1.25 mg/dL [place] EGFR IF NonAfrican Iraqi >60.0 >60 mL/min [place] Comment on above: Source- MDRD equatio n with creatinine calibration to IDMS(NKDEP) eGFR not recommended for drug dose adjustment GFR/1.73 sq M predicted among blacks MDRD (S/P/Bld) [Vol rate/Area] mL/min/{1.73_m2} >60 mL/min [place] Glucose [Mass/Vol] 103 mg/dL High 70 - 100 mg/dL [place] Interpretation and review of laboratory results Abnormal [place] Potassium [Moles/Vol] 4.0 mmol/L 3.5 - 5.1 mmol/L [place] Sodium [Moles/Vol] 139 mmol/L 135 - 145 mmol/L [place] Urea nitrogen [Mass/Vol] 34 mg/dL High 7 - 20 mg/d L [place] Test Performed by [employer], [address], [place], [place] [address] [place] Brain Natriuretic Peptideon 10-03-2019 Interpretation and review of laboratory results Abnormal [place] Natriuretic peptide B (Bld) [Mass/Vol] 222 pg/mL High 0 - 125 pg/mL [place] CKon 10-03-2019 Total CK 60 U/L 30 - 170 U/L [place] CT Cervical Spine WO Contras ton 10-03-2019 [place], [facility] Incoming Radiology Results From [facility] - 10/03/2019 11:09 AM EDT Patient Name: CHARLIE NGUYEN ---CT--- Exam Date/Time 10/03/2019 10:54:[address] Spine Cervical w/o Contrast Ordering Physician DO MORRIS DAVID J Accession Number [id number] CPT4 Codes 47064 () Reason For Exam Suspected overdose Report [...] KEVIN Transcribed Date and Time: 10/03/2019 11:09 [place] Patient Name: CHARLIE NGUYEN ---CT--- Exam Date/Time 10/03/2019 10:54:[address] Spine Cervical w/o Contrast Ordering Physician DO MORRIS DAVID J Accession Number [id number] CPT4 Codes 86152 () Reason For Exam Suspected overdose Report [...] KEVIN Transcribed Date and Time: 10/03/2019 11:09 [place] Head WO Contraston 2019 Patient Name: CHARLIE NGUYEN ---CT--- Exam Date/Time 10/03/2019 10:54:[address] Head or Brain w/o Contrast Ordering Physician DO MORRIS DAVID J Accession Number [id number] CPT4 Codes 40721 () Reason For Exam AMS, suspected overdose [...] KEVIN Transcribed Date and Time: 10/03/2019 11:01 [place], [facility] Incoming Radiology Results From [facility] - 10/03/2019 11:01 AM EDT Patient Name: CHARLIE NGUYEN ---CT--- Exam Date/Time 10/03/2019 10:54:[address] Head or Brain w/o Contrast Ordering Physician DO MORRIS DAVID J Accession Number [id number] CPT4 Codes 95473 () Reason For Exam AMS, suspected overdose [...] KEVIN Transcribed Date and Time: 10/03/2019 11:01 [place] Comprehensive Metabolic Pane rafiq 10-03-2019 Albumin [Mass/Vol] 3.9 g/dL 3.5 - 5 g/dL [place] ALP [Catalytic activity/Vol] 132 U/L High 38 - 126 U/L [place] ALT [Catalytic activity/Vol] 20 U/L 0 - 34 U/L [place] Comment on above: The ALT test is perf ormed by an updated assay method. Please note that the reference intervals have been changed and are now sex specific. Anion gap [Moles/Vol] 10 mmol/L [place] AST [Catalytic activity/Vol] 27 U/L 15 - 46 U/L [place] Bilirubin Ql (U) 0.6 mg/dL 0.2 - 1.3 mg/dL [place] Calcium [Mass/Vol] 8.5 mg/dL 8.4 - 10. 4 mg/dL [place] Chloride [Moles/Vol] 96 mmol/L Low 98 - 10 7 mmol/L [place] CO2 [Moles/Vol] 33 mmol/L High 22 - 30 mmol/L [place] Creatinine [Mass/Vol] 0.87 mg/dL 0.52 - 1.25 mg/dL [place] EGFR IF NonAfrican Iraqi >60.0 >60 mL/min [place] Comment on above: Source- MDRD equatio n with creatinine calibration to IDMS(NKDEP) eGFR not recommended for drug dose adjustment GFR/1.73 sq M predicted among blacks MDRD (S/P/Bld) [Vol rate/Area] mL/min/{1.73_m2} >60 mL/min [place] Glucose [Mass/Vol] 127 mg/dL High 70 - 100 mg/dL [place] Potassium [Moles/Vol] 3.7 mmol/L 3.5 - 5.1 mmol/L [place] Protein [Mass/Vol] 7.5 g/dL 6.3 - 8.2 g/dL [place] Sodium [Moles/Vol] 139 mmol/L 135 - 145 mmol/L [place] Urea nitrogen [Mass/Vol] 37 mg/dL High 7 - 20 mg/d L [place] Ethanolon 10-03-2019 Ethanol Lvl <0.010 0 - 0.01 g/dL [place] Comment on above: NOTE: This result is for medical treatment only. Analysis performed using non-forensic procedures. Hemogram (CBC) w/Auto Diffon 10-03-2019 Absolute Baso # 0.1 10*3/uL 0 - 0.2 10*3/uL [place] Absolute Neut # 10.0 10*3/uL High 1.8 - 7 10*3/uL [place] Basophils/100 WBC (Bld) 0.9 % 0 - 2 % [place] Eosinophils (Bld) [#/Vol] 0.0 10*3/uL 0 - 0.5 10*3/uL [place] Eosinophils/100 WBC (Bld) 0.1 % Low 1 - 6 % [place] Erythrocyte distribution width (RBC) [Ratio] 15.2 % High 11.5 - 14.5 % [place] Granulocytes/100 WBC (Bld) 82.5 % High 40 - 80 % [place] Hematocrit (Bld) [Volume fraction] 43.1 % 35 - 47 % [place] Hemoglobin (Bld) [Mass/Vol] 14.1 g/dL 11.7 - 16 g/dL [place] Interpretation and review of laboratory results Abnormal [place] Lymphocytes (Bld) [#/Vol] 1.2 10*3/uL 1 - 4.3 10*3/uL [place] Lymphocytes/100 WBC (Bld) 9.7 % Low 20 - 40 % [place] MCH (RBC) [Entitic mass] 31.9 pg 26 - 34 pg [place] MCHC (RBC) [Mass/Vol] 32.8 % 32 - 36 % [place] MCV (RBC) [Entitic vol] 97.2 fL 79 - 98 fL [place] Monocytes (Bld) [#/Vol] 0.8 10*3/uL 0 - 0.8 10*3/uL [place] Monocytes/100 WBC (Bld) 6.8 % 2 - 10 % [place] Platelet mean volume (Bld) [Entitic vol] 9.0 fL 7.4 - 10.4 fL [place] Platelets (Bld) [#/Vol] 187 10*3/uL 140 - 440 10*3/uL [place] RBC (Bld) [#/Vol] 4.43 10*6/uL 3.8 - 5.2 10*6/uL [place] WBC (Bld) [#/Vol] 12.1 10*3/uL High 3.6 - 10.7 10*3/uL [place] Test Performed by [facility], [address] [place], [place], [place] [address] [place] Intubationon 10-03-2019 Luli Morris DO 10/03/2019 [...] passed the ET tube times one attempt. [place] Lactic Acid, Plasmaon 2019 Lactate [Moles/Vol] 1.3 mmol/L 0.7 - 2 mmol/L [place] Lipaseon 10-03-2019 Lipase [Catalytic activity/Vol] 67 U/L 23 - 300 U/L [facility], [place] Magnesiumon 10-03-2019 Magnesium [Mass/Vol] 1.5 mg/dL Low 1.6 - 2 .3 mg/dL [facility], [place] Otheron 10-03-2019 Test Performed by [facility], [facility] [address], [place], [place] [id number] [place] [address], [place] Test Performed by [facility], [facility] [address], [place], [place] [id number] [place] [address], [place] Interpretation and review of laboratory results Abnormal [facility], [place] Test Performed by [facility], [facility] [address], [place], [place] [id number] [place] [address], [place] POCT Arterialon 10-03-2019 Base Excess, Arterial 9.2 mmol/L High -3 - 3 mmol/L [facility] [place], [place] HCO3, Arterial 33.7 mmol/L High 21 - 25 mmol/L [facility] [place], [place] Interpretation and review of laboratory results Abnormal [facility], [place] Oxygen saturation in Blood 92.6 % Low 95 - 100 % [facility], [place] pCO2, Arterial 44.1 mm[Hg] 35 - 45 mm[Hg] [facility] [place], [place] pH, Arterial 7.492 High [facility], [place] pO2, Arterial 60.8 mm[Hg] Low 80 - 100 mm[Hg] [facility], [place] Sodium [Moles/Vol] 60 mmol/L [facility], [place] Comment on above: Performed by LATASHA ID : [id number] [place], [place] TCO2, Arterial 35.1 mmol/L High 23 - 27 mmol/L [facility]- [place], [place] Test Performed by [facility], [facility] [address], [place], [place] [id number] [place] [address]- [place], [place] Base Excess, Arterial 8.6 mmol/L High -3 - 3 mmol/L [facility]- [place], [place] HCO3, Arterial 34.4 mmol/L High 21 - 25 mmol/L [facility] [place], [place] Interpretation and review of laboratory results Abnormal [facility], [place] Oxygen saturation in Blood 89.9 % Low 95 - 100 % [facility], [place] pCO2, Arterial 49.7 mm[Hg] High 35 - 45 mm[Hg] [place], [place] pH, Arterial 7.448 [place] pO2, Arterial 56.9 mm[Hg] Low 80 - 100 mm[Hg] [place] Sodium [Moles/Vol] 40 mmol/L [place] Comment on above: Performed by CLIA ID : [id number] [place], [place] TCO2, Arterial 35.9 mmol/L High 23 - 27 mmol/L [place] Test Performed by [facility], [address] POCT Glucoseon 10-03-2019 Glucose [Mass/Vol] 125 mg/dL High 70 - 100 mg/dL [place], [place] Comment on above: Test performed by ucose meter. Results may be 10%-15% lower than serum/plasma values. (CLIA ID [id number]) Interpretation and review of laboratory results Abnormal [place], [place] Test Performed by [facility], [address] SALICYLATE LEVELon 0 Salicylate Lvl 1.1 mg/dL 0 - 20 mg/dL [place], [place] Test Performed by [facility], [address] Troponin x1on 10-03-2019 Troponin I.cardiac [Mass/Vol] ng/mL 0 - 0.034 ng/mL [place], [place] Comment on above: . Urinalysison 10-03-2019 Appearance (U) Clear Clear NA [place], [place] Comment on above: . Bacteria, UA Many Abnormal Negative /[HPF] [place] Comment on above: . Bilirubin Urine Negative Negative mg/dL [place], [place] Comment on above: . Color (U) Yellow Lt. Yellow NA [place], [place] Comment on above: . Glucose, Ur Normal Normal (<70) mg/dL [place], [place] Comment on above: . Interpretation and review of laboratory results Abnormal [place], [place] Ketones Ql (U) Negative Negative mg/dL [place], [place] Comment on above: . LEUKOCYTES, UA 250 Abnormal Negative Simon/uL [place], [place] Comment on above: . Mucous Threads Few Negative /[LPF] [place] Comment on above: . Nitrite, Urine Negative Negative NA [place], [place] Comment on above: . Occult Blood,Urine Negative Negative mg/dL [place], [place] Comment on above: . pH (U) 5.5 [pH] [place], [place] Comment on above: . Protein (U) [Mass/Vol] 10 mg/dL Abnormal Negative [place], [place] Comment on above: . RBC (U) [#/Vol] 0-2 0 - 2 /[HPF] [place], [place] Comment on above: . Specific [place], Urine 1.024 M [place], [place] Comment on above: . Squam Epithel, UA 0-2 3 - 5 /[HPF] [place] Comment on above: . Urobilinogen, Urine Normal Normal ( 0-1) mg/dL [place], [place] Comment on above: . WBC, UA 26-50 Abnormal 0 - 5 /[HPF] [place], [place] Comment on above: . Test Performed by [facility] [employer] [facility], [address] [place], [place] [address] [place], [place] Urine Drug Screenon 10-03-19 20 Amphetamines, urine Negative [place], [place] Barbiturates, Ur Negative [place] Benzodiazepine Ur Qual Positive [place], [place] Cocaine Metabolites, Ur Negative [place], [place] Methadone, Urine Negative [place] Opiates, Urine Negative [place] Oxycodone Screen, Ur Negative [place] PCP, Urine Negative [place] Comment on above: The expected value [...] confirmation under separate order. Test Performed by [facility], [address], [place], [place] [address] [facility], [place] XR CHEST PORTABLEon 10-03-19 Patient Name: CHARLIE NGUYEN ---Diagnostic Radiology--- Exam Date/Time 10/03/2019 08:25:00 EDT Exam CR Chest Portable Ordering Physician DO MORRIS DAVID J Accession Number [id number] CPT4 Codes 87616 () Reason For Exam Altered mental status, [...] R Transcribed Date and Time: 10/03/2019 8:44 [place], [place] Rodolfo, [facility] Incoming Rad[facility] - 10/03/2019 8:44 AM EDT Patient Name: CHARLIE NGUYEN ---Diagnostic Radiology--- Exam Date/Time 10/03/2019 08:25:00 EDT Exam CR Chest Portable Ordering Physician DO MORRIS DAVID J Accession Number [id number] CPT4 Codes 17525 () Reason For Exam Altered mental status, [...] focal consolidation seen. Report Dictated on Workstation: Violet Grey --- Final --- Dictating Physician: MD CARPENTER JONATHAN R Signed Date and Time: 10/03/2019 8:43 am Signed by: MD CARPENTER JONATHAN R Transcribed Date and Time: 10/03/2019 8:44 [place], [place] URINE CULTUREon 10-30-2018 Bacteria identified Cx [...] LEVOFLOXACIN <2 S MEROPENEM <1 S Normal [facility] [place] Comment on above: Performed By: #### M [id number] #### [facility] [address] [place] [address] UA COMPLETEon 10-28-2018 UA LK ESTERASE 500 Normal NEGATIVE [facility] Comment on above: Performed By: #### L [id number] #### [facility] [place] [address] UA NITRITE Positive Normal NEGATIVE [facility] Comment on above: Performed By: #### L [id number] #### [facility] [place] [address] UA WBC 529 WBC/HPF High 0-5 [facility] Comment on above: Performed By: #### L [id number] #### [facility] [address] [place] [address] Color Nom (U) Yellow Normal [facility] Comment on above: Performed By: #### L [id number] #### [facility] [address] [place] [address] Glucose mass conc (U) Negative Normal NORMAL [facility] Comment on above: Performed By: #### L [id number] #### [facility] [address] [place] [address] Mucus Ql (Urine sed) TRACE Normal NEGATIVE [facility] Comment on above: Performed By: #### L [id number] #### [facility] [address] [place] [address] SQUAMOUS EPIS 7 EPI/HPF High 0-5 [facility] Comment on above: Performed By: #### L [id number] #### [facility] [address] [place] [address] UA APPEARANCE Cloudy Normal CLEAR [facility] Comment on above: Performed By: #### L [id number] #### [facility] [address] [place] [address] UA BACTERIA 1+ /HPF Normal NONE [facility] Comment on above: Performed By: #### L [id number] #### [facility] [place] [id number] UA BILIRUBIN Negative Normal NEGATIVE [facility] Comment on above: Performed By: #### L [id number] #### [facility] [address] [place] [address] UA BLOOD SMALL Normal NEGATIVE [facility] Comment on above: Performed By: #### L [id number] #### [facility] [address] [place], [place] [id number] UA KETONE Negative Normal NEGATIVE [facility] Comment on above: Performed By: #### L [id number] #### [facility] [address] [place] [address] UA PH 6.0 Normal 5-6 [facility] Comment on above: Performed By: #### L [id number] #### [facility] [address] [place], [place] [id number] UA PROTEIN Negative Normal NEGATIVE [facility] Comment on above: Performed By: #### L 600. #### [facility] [address] [place] [address] UA RBC 3 RBC/HPF Normal 0-3 [facility] Comment on above: Performed By: #### L 600. #### [facility] [address] [place] [address] UA SPEC GRAV 1.015 Normal 1.005-1.030 [facility] Comment on above: Performed By: #### L [id number] #### [facility] [address] [place], [place] [id number] UA UROBILINOGEN Negative Normal NORMAL [facility] Comment on above: Performed By: #### L [id number] #### [facility] [address] [place], [place] [id number] WBC CLUMPS MANY Normal [facility] Comment on above: Performed By: #### L [id number] #### [facility] [address] [place], [place] [id number] Vital Signs Date Time Vital Sign Value Performing Clinician Facility 11-17-2022 15:49-0400 Diastolic blood pressure 80 mm[Hg] Marc Goodman DO Work Phone: [facility] 11-17-2022 15:49-0400 Heart rate 77 /min Marc Goodman DO Work Phone: [facility] 11-17-2022 15:49-0400 Respiratory rate 20 /min Marc Goodman DO Work Phone: [facility] 11-17-2022 15:49-0400 SaO2% (BldA) [Mass fraction] 91 % Marc Goodman DO Work Phone: [facility] 11-17-2022 15:49-0400 Systolic blood pressure 114 mm[Hg] Marc Goodman DO Work Phone: [facility] 11-17-2022 08:35-0400 Body mass index (BMI) [Ratio] 34.87 kg/m2 Marc Goodman DO Work Phone: [facility] 11-17-2022 08:35-0400 Body temperature 96.3 [degF] Marc Goodman DO Work Phone: [facility] 11-17-2022 08:35-0400 Body weight 113.4 kg Marc Goodman DO Work Phone: [facility] 01-15-2021 13:32-0400 Diastolic blood pressure 65 mm[Hg] Nehal Madden DO Work Phone: [facility] Work Phone: 01-15-2021 13:32-0400 Heart rate 78 /min Nehal Madden DO Work Phone: [facility] Work Phone: 01-15-2021 13:32-0400 SaO2% (BldA) [Mass fraction] 91 % [facility] DO [facility] Work Phone: 01-15-2021 13:32-0400 Systolic blood pressure 103 mm[Hg] Nehal Chano DO Work Phone: [employer] Work Phone: 01-15-2021 11:46-0400 Body height 180.3 cm Nehal Chano DO Work Phone: [employer] Work Phone: 01-15-2021 11:46-0400 Body mass index (BMI) [Ratio] 32.08 kg/m2 Nehal Chano DO Work Phone: [employer] Work Phone: 01-15-2021 11:46-0400 Body temperature 99.39 [degF] Nehal Chano DO Work Phone: [employer] Work Phone: 01-15-2021 11:46-0400 Body weight 104.33 kg Nehal Chano DO Work Phone: [employer] Work Phone: 01-15-2021 11:46-0400 Respiratory rate 16 /min Nehal Chano [employer] Work Phone: [employer] Work Phone: 01-06-2021 02:54-0400 Diastolic blood pressure 76 mm[Hg] Erika Hudson MD Work Phone: [facility] Work Phone: 01-06-2021 02:54-0400 Heart rate 62 /min Erika Hudson MD Work Phone: [facility] Work Phone: 01-06-2021 02:54-0400 Respiratory rate 16 /min Erika Hudson MD Work Phone: [facility] Work Phone: 01-06-2021 02:54-0400 SaO2% (BldA) [Mass fraction] 95 % Erika Hudson MD Work Phone: [facility] Work Phone: 01-06-2021 02:54-0400 Systolic blood pressure 102 mm[Hg] [facility] Work Phone: 01-05-2021 19:10-0400 Body height 180.3 cm Erika Hudson [facility] Work Phone: 01-05-2021 19:10-0400 Body mass index (BMI) [Ratio] 32.08 kg/m2 Erika Hudson MD [facility] Work Phone: 01-05-2021 19:10-0400 Body temperature 100.51 [degF] [facility] Work Phone: 01-05-2021 19:10-0400 Body weight 104.33 kg Erika Hudson MD [facility] Work Phone: 12-18-2020 23:25-0400 Diastolic blood pressure 66 mm[Hg] Jorge Mejia MD [facility] Work Phone: 12-18-2020 23:25-0400 Heart rate 65 /min Jorge [facility] MD [facility] Work Phone: 12-18-2020 23:25-0400 Respiratory rate 16 /min Jorge [facility] MD [facility] Work Phone: 12-18-2020 23:25-0400 SaO2% (BldA) [Mass fraction] 91 % Jorge [facility] MD [facility] Work Phone: 12-18-2020 23:25-0400 Systolic blood pressure 100 mm[Hg] Jorge Mejia MD Work Phone: [facility] Work Phone: 12-18-2020 20:35-0400 Body height 180.3 cm Jorge [facility] MD [facility] Work Phone: 12-18-2020 20:35-0400 Body mass index (BMI) [Ratio] 32.08 kg/m2 Jorge Mejia MD Work Phone: [facility] Work Phone: 12-18-2020 20:35-0400 Body temperature 99.1 [degF] Jorge Mejia MD Work Phone: [facility] Work Phone: 12-18-2020 20:35-0400 Body weight 104.33 kg Jorge Mejia MD Work Phone: [facility] Work Phone: 02-03-2020 15:38-0400 Body Temperature 97.3 [degF] [facility], [place] 02-03-2020 15:38-0400 BP Diastolic 62 mm[Hg] [facility], [place] 02-03-2020 15:38-0400 BP Systolic 107 mm[Hg] [facility], [place] 02-03-2020 15:38-0400 Pulse (Heart Rate) 59 /min [facility], [place] 02-03-2020 15:38-0400 Pulse Oximetry 95 % [facility], [place] 02-03-2020 15:38-0400 Respiratory Rate 16 /min [facility], [place] 02-03-2020 05:59-0400 BMI (Body Mass Index) 33.64 kg/m2 [facility], [place] 02-03-2020 05:59-0400 Body weight 109.41 kg Alexandro [facility] [place], [place] 01-30-2020 14:03-0400 Height 180.3 cm Alexandro [facility] [place], [place] 11-04-2019 20:50-0400 Body Temperature 98.01 [degF] Sulaiman [facility], [place] 11-04-2019 20:50-0400 BP Diastolic 81 mm[Hg] [facility]aim[facility] , [place] 11-04-2019 20:50-0400 BP Systolic 119 mm[Hg] [facility] , [place] 11-04-2019 20:50-0400 Pulse (Heart Rate) 91 /min [facility], [place] 11-04-2019 20:50-0400 Pulse Oximetry 94 % [facility] , [place] 11-04-2019 20:50-0400 Respiratory Rate 20 /min [facility], [place] 11-04-2019 13:50-0400 BMI (Body Mass Index) 41.84 kg/m2 [facility], [place] 11-04-2019 13:50-0400 Body weight 136.08 kg [facility] , [place] 11-04-2019 13:50-0400 Height 180.3 cm [facility] , [place] 10-25-2019 08:08-0400 Body Temperature 98.01 [degF] [facility], [place] 10-25-2019 08:08-0400 BP Diastolic 78 mm[Hg] [facility] , [place] 10-25-2019 08:08-0400 BP Systolic 116 mm[Hg] [facility] , [place] 10-25-2019 08:08-0400 Pulse (Heart Rate) 95 /min [facility], [place] 10-25-2019 08:08-0400 Pulse Oximetry 93 % [facility] , [place] 10-25-2019 08:08-0400 Respiratory Rate 18 /min [facility], [place] 10-13-2019 05:24-0400 BMI (Body Mass Index) 39.87 kg/m2 [place], [place] 10-13-2019 05:24-0400 Body weight 122.47 kg [place], [place] 10-05-2019 07:32-0400 Height 175.3 cm [place] Encounters Encounter Date Encounter Type Care Provider Facility Start: 12-09-2024 ambulatory Royer RICKS Facil ity:[facility] Start: 12-07-2024 End: 12-07-2024 ambulatory Moreno Oates MD Work Phone: Family Practice Comment on above: Headache Start: 11-18-2024 End: 11-18-2024 Refill Moreno Oates MD Work Phone: Family Practice Comment on above: Refill Request Start: 11-10-2024 End: 11-10-2024 Refill Moreno Oates MD Work Phone: Family Practice Comment on above: Refill Request Start: 11-09-2024 ambulatory Ender RICKS Faci lity:[facility] Start: 10-17-2024 End: 10-20-2024 [facility] Start: 10-15-2024 ambulatory Ender RICKS Faci lity:[facility] Start: 10-14-2024 End: 10-14-2024 Refill Moreno Oates MD Work Phone: Family Practice Comment on above: Refill Request Start: 09-16-2024 End: 09-16-2024 Refill Moreno Oates MD Work Phone: Family Practice Comment on above: Refill Request Start: 09-09-2024 End: 09-09-2024 ambulatory Ender RICKS Facility:[facility] Start: 08-18-2024 End: 08-18-2024 Refill Moreno Oates MD Work Phone: Family Practice Comment on above: Refill Request Start: 08-10-2024 End: 08-10-2024 ambulatory Ender Oates MD Work Phone: [facility] Work Phone: Start: 08-10-2024 End: 08-10-2024 Departed Referred Royer Reagan -[facility] [place] Start: 08-10-2024 End: 08-10-2024 ambulatory Royer RICKS Facility:[facility] Start: 07-22-2024 End: 07-22-2024 Refill Moreno Oates MD Work Phone: [facility] Comment on above: Refill Request Start: 07-18-2024 End: 07-18-2024 Telephone encounter Moreno Oates MD Work Phone: Family [facility] Comment on above: Received Outside Med ical Records ([facility] ([facility]) Labs 07/12/2024) Start: 07-12-2024 ambulatory Ender RICKS Faci lity:[facility] Start: 07-12-2024 Registered Referred Ender Maldonado -[facility] [place] [address] Start: 07-04-2024 ambulatory Royer RICKS Facil ity:[facility] Start: 07-04-2024 Registered Referred Royer Reagan -[facility] [place] [address] Start: 06-23-2024 End: 06-23-2024 Refill Moreno Oates MD Work Phone: [facility] Comment on above: Refill Request Start: 05-23-2024 End: 05-24-2024 Refill Moreno Oates MD Work Phone: [facility] Comment on above: Refill Request Start: 05-11-2024 End: 05-11-2024 Departed Referred Ender Oates MD -[facility] [address] Start: 05-11-2024 End: 05-11-2024 ambulatory Ender RICKS Facility:[facility] Start: 04-22-2024 End: 04-22-2024 Refill Moreno Oates MD Work Phone: [facility] Comment on above: Refill Request Start: 04-21-2024 End: 04-22-2024 Refill Moreno Oates MD Work Phone: Family Practice Comment on above: Refill Request Start: 04-12-2024 End: 04-12-2024 Telephone encounter Moreno Oates MD Work Phone: Family Practice Comment on above: Received Outside Med ical Records ([facility] Labs 04/11/2024) Start: 04-11-2024 End: 04-11-2024 ambulatory Ender RICKS Facility:[facility] Start: 03-31-2024 End: 03-31-2024 Refill Moreno Oates MD Work Phone: Family Practice Comment on above: Refill Request Start: 03-25-2024 End: 03-25-2024 Refill Moreno Oates MD Work Phone: Family Practice Comment on above: Refill Request Start: 03-24-2024 End: 03-24-2024 Refill Moreno Oates MD Work Phone: Family Practice Comment on above: Refill Request Start: 03-24-2024 End: 03-24-2024 ambulatory Ender RICKS Facility:[facility] Start: 03-17-2024 End: 03-17-2024 Telephone encounter Moreno Oates MD Work Phone: Family Practice Comment on above: Orders ([facility]) Start: 03-10-2024 End: 03-10-2024 Telephone encounter Moreno Oates MD Work Phone: Family Practice Comment on above: Outside Labs Results ([facility]) Start: 03-10-2024 End: 03-10-2024 ambulatory Royer RICKS Facility:[facility] Start: 02-29-2024 End: 02-29-2024 Refill Moreno Oates MD Work Phone: Family Practice Comment on above: Opened In Error Start: 02-26-2024 End: 02-26-2024 Refill Moreno Oates MD Work Phone: Family Practice Comment on above: Refill Request Start: 02-09-2024 ambulatory Royer Salgado ity:[facility] Start: 01-27-2024 End: 01-28-2024 Refill Moreno Oates MD Work Phone: Family Practice Comment on above: Refill Request Start: 12-30-2023 Refill Moreno peterson MD Work Phone: Family Practice Comment on above: Refill Request Start: 12-29-2023 End: 01-20-2024 Telephone encounter Moreno Oates MD Work Phone: Family Practice Comment on above: Medication Request Start: 11-27-2023 Telephone encounter Moreno Oates MD Work Phone: Family Practice Start: 11-10-2023 Telephone encounter Moreno Oates MD Work Phone: Family [facility] Comment on above: Received Outside Med ical Records ([facility] Labs 11/09/2023) Start: 10-27-2023 Refill Moreno peterson MD Work Phone: Family Practice Comment on above: Refill Request Start: 10-12-2023 Telephone encounter Moerno Oates MD Work Phone: Family Practice Comment on above: Outside Lab Results ([facility] 10/12/23) Start: 10-07-2023 Refill Moreno peterson [...] Practice Comment on above: Outside Labs Results ([facility]) Start: 08-10-2023 End: 08-10-2023 ambulatory [facility] Work Phone: Start: 08-10-2023 End: 08-10-2023 [facility]ed [facility] [address] Start: 07-31-2023 Refill Moreno peterson MD Work Phone: Family [facility] Comment on above: Refill Request Start: 07-30-2023 Refill Moreno peterson MD Work Phone: Family Practice Comment on above: Refill Request Start: 07-13-2023 End: 07-13-2023 Departed Referred [facility] [address] Start: 06-08-2023 End: 06-08-2023 ambulatory [facility] Work Phone: Start: 06-08-2023 End: 06-08-2023 Dep[facility]ed [facility] [address] Start: 05-11-2023 Telephone encounter Moreno Oates MD Work Phone: Family Practice Comment on above: Received Outside Med ical Records ([facility] ([facility]) Labs 05/11/2023) Start: 05-11-2023 End: 05-11-2023 Departed [facility] [address] Start: 04-29-2023 Telephone encounter Moreno Oates MD Work Phone: Family Practice Start: 04-13-2023 Telephone encounter Moreno Oates MD Work Phone: Family Practice Comment on above: Received Outside Med ical Records ([facility] ([facility]) Labs 04/06/2023) Start: 04-13-2023 End: 04-13-2023 ambulatory [facility] Work Phone: Start: 04-13-2023 End: 04-13-2023 Departed Referred [facility] [address] Start: 04-06-2023 Telephone encounter Moreno Oates MD Work Phone: Family Practice Comment on above: Orders Start: 03-30-2023 Telephone encounter Moreno Oates MD Work Phone: Family Practice Start: 03-09-2023 End: 03-09-2023 ambulatory [facility] Work Phone: Start: 03-09-2023 End: 03-09-2023 Departed Referred [facility] [address] Start: 03-07-2023 End: 03-07-2023 Departed Referred [facility] [address] Start: 02-13-2023 ambulatory Moreno peterson MD Work Phone: Family Practice Comment on above: Nurse Triage Call Start: 02-12-2023 Telephone encounter Moreno Oates MD Work Phone: Family Practice Comment on above: Received Outside Med ical Records (Lab results 02/09/23 [facility]) Start: 02-11-2023 Telephone encounter Moreno Oates MD Work Phone: Family Practice Comment on above: Medication Request Start: 02-09-2023 End: 02-09-2023 ambulatory [facility] Work Phone: Start: 02-09-2023 End: 02-09-2023 Departed Referred [facility] [address] Start: 02-09-2023 Registered Referred [facility] [address] Start: 01-31-2023 Telephone encounter Moreno Oates MD Work Phone: Family Practice Start: 01-26-2023 Telephone encounter Moreno Oates MD Work Phone: Family Practice Comment on above: Received Outside Med ical Records ([facility] Lower extremity venous duplex 01/21/2023) Start: 01-21-2023 End: 01-22-2023 ambulatory KENJI PHILLIP DO~[id number] [facility] Start: 01-13-2023 Refill Moreno peterson MD Work Phone: Family Practice Comment on above: Refill Request Start: 01-12-2023 Telephone encounter Moreno Oates MD Work Phone: Family Practice Comment on above: Received Outside Med ical Records (Lab results from [facility]/ [facility] Lab) Start: 01-12-2023 End: 01-12-2023 ambulatory [facility] Work Phone: Start: 01-12-2023 End: 01-12-2023 Departed Referred [facility] - [address] Start: 01-01-2023 Refill Moreno peterson MD Work Phone: Family Practice Comment on above: Refill Request Start: 12-31-2022 Telephone encounter Moreno Oates MD Work Phone: Family Practice Comment on above: Received Outside Med ical Records ([facility] ([facility]) Labs 12/30/2022) Start: 12-30-2022 End: 12-30-2022 Departed Referred [facility] [address] Start: 12-30-2022 Registered Referred [facility] - [address] Start: 12-29-2022 ambulatory Moreno peterson MD Work Phone: Family Practice Comment on above: Nurse Triage Call Start: 12-16-2022 Telephone encounter Moreno Oates MD Work Phone: Family Practice Comment on above: Received Outside Med ical Records ([facility] Vascular Surgery 12/15/22) Start: 12-09-2022 End: 12-09-2022 ambulatory [facility] Work Phone: Start: 12-09-2022 End: 12-09-2022 Departed Referred [facility] - [address] Start: 12-01-2022 Telephone encounter Moreno Oates MD Work Phone: Family Practice Comment on above: Orders Start: 11-27-2022 Registered Referred [facility] - [address] Start: 11-21-2022 Telephone encounter Moreno Oates MD Work Phone: Family Practice Comment on above: Orders ([facility] Rah erickson having extreme pain in left leg asking for an increase in percocet to every 4 hours.) Start: 11-17-2022 End: 11-17-2022 Emergency department patient visit Marc Goodman DO Work Phone: [facility] Comment on above: Left leg swelling (P rimary Dx) Start: 11-12-2022 ambulatory Moreno peterson MD Work Phone: Internal Medicine [facility] Start: 11-10-2022 End: 11-10-2022 ambulatory [facility] Work Phone: Start: 11-10-2022 End: 11-10-2022 Departed Referred [facility] [address] Start: 11-06-2022 Telephone encounter Moreno Oates MD Work Phone: Family Practice Comment on above: Received Outside Med ical Records ([facility] portable x-ray service ([facility]) Chest x-ray 11/04/2022) Start: 10-10-2022 Telephone encounter Moreno Oates MD Work Phone: Family Practice Comment on above: Orders Start: 10-06-2022 Telephone encounter Moreno Oates MD Work Phone: Family Practice Comment on above: Received Outside Med ical Records ([facility] ([facility]) Labs) Start: 10-06-2022 End: 10-06-2022 Departed Referred [facility] - [address] Start: 10-01-2022 Telephone encounter Moreno Oates MD Work Phone: Family Practice Comment on above: Refill Request Start: 09-24-2022 Telephone encounter Moreno Oates MD Work Phone: Family Practice Comment on above: Clinical Symptoms Start: 09-19-2022 Telephone encounter Moreno Oates MD Work Phone: Family Practice Comment on above: Medication Request ( [facility] ) Start: 09-08-2022 End: 09-08-2022 ambulatory [facility] Work Phone: Start: 09-08-2022 End: 09-08-2022 Departed Referred [facility] - [address] Start: 09-08-2022 Registered Referred [facility] - [address] Start: 09-05-2022 Telephone encounter Moreno Oates MD Work Phone: [facility] Comment on above: Medication Request ( [facility] ) Start: 08-29-2022 Telephone encounter Moreno Oates MD Work Phone: [facility] Comment on above: Medication Request ( [facility] Oxycodone apap 5-325 mg 1 tab every 6 hours ) Start: 08-28-2022 Telephone encounter Moreno Oates MD Work Phone: [facility] Comment on above: Outside Lab Results ([facility]) Start: 08-28-2022 End: 08-28-2022 ambulatory [facility] Work Phone: Start: 08-28-2022 End: 08-28-2022 Departed Referred [facility] - [address] Start: 08-28-2022 Registered Referred [facility] - [address] Start: 08-11-2022 End: 08-11-2022 Patient encounter procedure Debbie Batista PA-C Work Phone: Orthopaedics Comment on above: Status post total le ft knee replacement (Primary Dx); S/P revision of total knee, right Start: 08-11-2022 End: 08-11-2022 ambulatory [facility] Work Phone: Start: 08-11-2022 End: 08-11-2022 Departed Referred [facility] - [address] Start: 08-08-2022 End: 08-08-2022 ambulatory [facility] Work Phone: Start: 08-08-2022 End: 08-08-2022 Departed Referred [facility] - [address] Start: 08-08-2022 Registered [facility]erred [facility] - [address] Start: 07-30-2022 Telephone encounter Moreno Oates MD Work Phone: Family Practice Comment on above: Received Outside Med ical Records ([place] [facility] ) Start: 07-29-2022 Refill Moreno peterson MD Work Phone: Family Practice Comment on above: Refill Request Start: 07-25-2022 Telephone encounter Moreno Oatse MD Work Phone: Family Practice Comment on above: Orders Start: 07-21-2022 Refill Moreno peterson MD Work Phone: Family Practice Comment on above: Refill Request Start: 07-16-2022 Telephone encounter Moreno Oates MD Work Phone: Family Practice Comment on above: Outside Lab Results ([facility] 07/14/22) Start: 07-14-2022 End: 07-14-2022 Dep[facility]ed [facility] Start: 07-06-2022 ambulatory Moreno peterson MD Work Phone: Family Practice Start: 07-05-2022 Telephone encounter Moreno Oates MD Work Phone: Family Practice Comment on above: Patient Update ([facility] 07/05[facility]) Start: 06-25-2022 Refill Moreno peterson MD Work Phone: Family Practice Comment on above: Refill Request Start: 06-18-2022 Telephone encounter Moreno Oates MD Work Phone: Family Practice Comment on above: Orders ([facility]) Start: 06-12-2022 ambulatory UNKNOWN PROVIDER Facili ty:[facility] Start: 06-12-2022 End: 06-12-2022 Subsequent hospital visit by physician Ct [facility] Comment on above: Pain due to internal orthopedic prosthetic devices, implants and grafts, initial encounter ([facility]) [T84.84XA] Start: 06-09-2022 End: 06-09-2022 ambulatory [facility] Work Phone: Start: 06-09-2022 End: 06-09-2022 Departed Referred [facility] - [address] Start: 06-09-2022 Registered Referred [facility] - [address] Start: 05-22-2022 Telephone encounter Moreno Oates MD Work Phone: Family [facility] Comment on above: Outside Labs Results (H) Start: 05-22-2022 End: 05-22-2022 ambulatory [facility] Work Phone: Start: 05-22-2022 End: 05-22-2022 Departed Referred [facility] - [address] Start: 05-22-2022 Registered Referred [facility] - [address] Start: 05-21-2022 End: 05-21-2022 Orders Only Debbie Batista PA-C Work Phone: Orthopaedics Comment on above: Status post total le ft knee replacement (Primary Dx) Status post total le ft knee replacement [Z96.652] Start: 05-15-2022 End: 05-15-2022 ambulatory [facility] Work Phone: Start: 05-15-2022 End: 05-15-2022 Departed Referred [facility] - [address] Start: 05-15-2022 Registered Referred [facility] - [address] Start: 05-12-2022 Telephone encounter Moreno Oates MD Work Phone: [facility] Comment on above: Medication Request ( [facility] 05/12/2022 Oxycodone/apap) Start: 05-10-2022 End: 05-10-2022 ambulatory [facility] Work Phone: Start: 05-10-2022 End: 05-10-2022 Departed Referred [facility] - [address] Start: 05-10-2022 Registered Referred [facility] - [address] Start: 05-01-2022 End: 12-01-2022 ambulatory [facility] Work Phone: Start: 05-01-2022 End: 05-01-2022 Departed Referred [facility] - [address] Start: 04-14-2022 End: 04-14-2022 Departed Referred [facility] - [address] Start: 03-24-2022 Telephone encounter Moreno Oates MD Work Phone: Family Practice Comment on above: medication orders ([facility]) Start: 03-19-2022 [facility] Start: 03-18-2022 Refill Moreno peterson MD Work Phone: Family Practice Comment on above: Opened In Error Orders (Mammogram or ders [facility]) Start: 03-17-2022 Telephone encounter Moreno Oates MD Work Phone: Family Practice Comment on above: Diagnositic mammogra m and US orders Start: 03-11-2022 Telephone encounter Moreno Oates MD Work Phone: Family Practice Comment on above: Refill Request Start: 03-10-2022 Telephone encounter Moreno Oates MD Work Phone: Family Practice Comment on above: Orders ([facility] [place] [facility]) Outside Lab Results ([facility]) Start: 03-10-2022 End: 03-10-2022 Departed Referred [facility] - [address] Start: 03-10-2022 Registered Referred [facility] - [address] Start: 03-06-2022 Telephone encounter Moreno Oates MD Work Phone: Family Medicine [facility] Comment on above: Refill Request (Futu re [...] Practice Comment on above: Outside Lab Results ([facility]) Start: 02-10-2022 End: 02-10-2022 ambulatory [facility] Work Phone: Start: 02-10-2022 End: 02-10-2022 Departed Referred [facility] - [address] Start: 02-05-2022 Telephone encounter Moreno Oates MD Work Phone: Family Practice Comment on above: Orders (Medication [facility] [place]) Start: 01-07-2022 Telephone encounter Moreno Oates MD Work Phone: Family [facility] Comment on above: Refill Request Start: 01-06-2022 End: 01-06-2022 ambulatory [facility] Work Phone: Start: 01-06-2022 End: 01-06-2022 [facility]ed [facility] [address] Start: 01-02-[address] [facility] Start: 12-30-2021 Telephone encounter Moreno Oates MD Work Phone: Family Practice Comment on above: Orders (prescription request) Start: 12-27-2021 End: 12-27-2021 [facility] [address] Start: 12-23-2021 Telephone encounter Moreno Oates MD Work Phone: Family Practice Comment on above: Orders (Controlled m edication request from [facility]) Orders (Pharmacy Rec ommendation [facility]) Start: 12-09-2021 Telephone encounter Moreno Oates MD Work Phone: Family Practice Comment on above: Outside Lab Results ([facility]) Start: 12-09-2021 [facility] [address] [facility] Start: 12-03-2021 Refill Moreno peterson MD Work Phone: Family Practice Comment on above: Refill Request Start: 11-25-2021 Telephone encounter Moreno Oates MD Work Phone: Family [facility] Comment on above: Orders ([facility]) Start: 11-21-2021 Telephone encounter Moreno Oates MD Work Phone: Family [facility] Comment on above: Patient Update ([facility]) Start: 11-19-2021 Telephone encounter Moreno Oates MD Work Phone: Family [facility] Comment on above: Medication Problem Refill Request; Refi ll Request Start: 11-18-2021 Telephone encounter Moreno Oates MD Work Phone: Family [facility] Comment on above: Orders (1 day medica tion refill) Start: 11-11-2021 Registered Referred [facility] 300 Start: 11-08-2021 End: 11-08-2021 Departed Referred [facility] [address] Start: 10-29-2021 Telephone encounter Moreno Oates MD Work Phone: Family [facility] Comment on above: Orders (prescription signed off by PCP and faxed to [facility] ) Start: 10-22-2021 Refill Moreno peterson MD Work Phone: Family [facility] Comment on above: Refill Request ([facility] ) Start: 10-09-2021 Telephone encounter Moreno Oates MD Work Phone: Family [facility] Comment on above: Patient Question Start: 10-08-2021 Telephone encounter Moreno Oates MD Work Phone: Family [facility] Comment on above: Orders (request for sign off on medication from PCP from [facility]. ) Start: 10-07-2021 Telephone encounter Moreno Oates MD Work Phone: Family [facility] Comment on above: Outside Lab Results (from [facility]) Start: 10-07-2021 End: 10-07-2021 Departed Referred [facility] [address] Start: 10-04-2021 Refill Moreno peterson MD Work Phone: Family [facility] Comment on above: Refill Request ([facility]) Start: 09-27-2021 Refill Moreno peterson MD Work Phone: Family [facility] Comment on above: Refill Request Start: 09-09-2021 End: 09-09-2021 Departed Referred [facility] - [address] Start: 09-09-2021 Registered Referred [facility] - [address] Start: 08-27-2021 Telephone encounter Moreno Oates MD Work Phone: [facility] Comment on above: Orders ([facility] 08/26/2021) Start: 08-26-2021 Refill Moreno peterson MD Work Phone: [facility] Start: 08-08-2021 End: 08-08-2021 Departed Referred [facility] - [address] Start: 08-08-2021 Registered Referred [facility] - [address] Start: 07-23-2021 End: 07-23-2021 Departed Referred [facility] - [address] Start: 07-23-2021 Registered Referred [facility] [place] - [address] Start: 07-16-2021 End: 07-16-2021 Departed Referred [facility] - [address] Start: 07-16-2021 Registered Referred [facility] - [address] Start: 07-09-2021 End: 07-09-2021 Departed Referred [facility] [place] - [address] Start: 07-09-2021 Registered Referred [facility] [place] - [address] Start: 07-08-2021 Telephone encounter Moreno Oates MD Work Phone: [facility] Comment on above: Received Outside Med ical Records ([facility] 07/05/2021 signature) Start: 07-02-2021 End: 07-02-2021 [facility] [address] [facility] Start: 07-02-2021 Registered Referred [facility] - [address] Start: 06-25-2021 End: 06-25-2021 Departed Referred [facility] - [address] Start: 06-25-2021 Registered Referred [facility] - [address] Start: 06-18-2021 End: 06-18-2021 Departed Referred [facility] - [address] Start: 06-18-2021 Registered Ref[facility] - [address] Start: 06-11-2021 End: 06-11-2021 Departed Referred [facility] - [address] Start: 06-04-2021 End: 06-04-2021 Departed Referred [facility] - [address] Start: 05-28-2021 Registered Referred [facility] - [address] Start: 01-15-2021 End: 01-15-2021 Emergency department patient visit Nehal Madden DO Work Phone: [facility] Comment on above: Chronic pain of righ t knee (Primary Dx) Start: 01-05-2021 End: 01-06-2021 Emergency department patient visit Erika Hudson MD Work Phone: [facility] Emergency Dept Start: 12-18-2020 End: 12-19-2020 Emergency department patient visit Jorge Mejia MD Work Phone: [facility] ED Comment on above: Cellulitis of right lower extremity (Primary Dx) Start: 01-27-2020 End: 02-03-2020 Evaluation and management of inpatient Alexandro Ackerman Work Phone: [facility] Comment on above: Generalized weakness (Primary [...] study Marc Goodman DO Work Phone: Start: 06-19-2023 Basic metabolic pane l calcium total Marc Orionkola DO Work Phone: Start: 11-17-2022 Ecg routine ecg w/le ast 12 lds trcg only w/o i&r Marc Orionkola DO Work Phone: Start: 10-06-2022 Comprehensive metabo [...] Work Phone: Start: 01-15-2021 POCT VENOUS Nehal Yanelis geiger DO Work Phone: Start: 01-15-2021 RESPIRATORY PANEL, MOLECULAR, WITH COVID-19 Nehal Chano DO Work Phone: Start: 01-15-2021 Radiologic exam ches t single view Nehal Chano DO Work Phone: Start: 01-15-2021 Assay of lipase Nehal Chano DO Work Phone: Start: 01-15-2021 LACTATE, SEPSIS Nehal Chano DO Work Phone: Start: 01-15-2021 Ecg routine ecg w/le ast 12 lds w/i&r Nehal Chano DO Work Phone: Start: 01-06-2021 Urnls dip [...] Blood count complete auto&auto difrntl wbc Kiley Vázquezins Work Phone: Start: 02-02-2020 Radiologic exam ches [...] gi pth gn multiplex probe tq 12-25 Tian [facility] Work Phone: Start: 01-28-2020 Inf agent det nuclei c acid clostridium amp probe Tian [facility] Work Phone: Start: 01-28-2020 ADD ON LAB TEST Kiley Goff Work Phone: Start: 01-28-2020 Assay of magnesium Pram od [facility] Work Phone: Start: 01-28-2020 Blood count complete auto&auto difrntl wbc [facility] Work Phone: Start: 01-28-2020 Culture bacterial bl ood aerobic w/id isolates [facility] Work Phone: Start: 01-28-2020 MANUAL DIFFERENTIAL Pra [facility] Work Phone: Start: 01-27-2020 CULTURE, BLOOD 1 [facility] Work Phone: Start: 01-27-2020 Drug screen class [...] Start: 11-04-2019 DIFFERENTIAL, BODY FLUID Pb A [employer] Work Phone: Start: 11-04-2019 Smr prim src gram/gi emsa stain bct fungi/cell Pb A [employer] Work Phone: Start: 11-04-2019 Cell count misc body fluids w/differential count Pb A [employer] Work Phone: Start: 11-04-2019 Crystal id light andrea roscopy edmar tiss/any fluid Pb A [employer] Work Phone: Start: 11-04-2019 Radiologic examinati on [...] Romero Work Phone: Start: 10-20-2019 EEG REPORT Torinleon Salazar Work Phone: Start: 10-20-2019 Assay of [...] Work Phone: Start: 10-20-2019 POCT ARTERIAL Luli cabrera Work Phone: Start: 10-20-2019 POCT ARTERIAL Luli Lincoln [facility] Work Phone: Start: 10-20-2019 Radiologic exam ches [...] d ev cleared fda spec home use [employer] Work Phone: Start: 10-18-2019 Radiologic exam ches [...] d ev cleared fda spec home use [employer] Work Phone: Start: 10-16-2019 Basic metabolic pane [...] Phone: Start: 10-14-2019 Acute hepatitis panel I fteklulu Swansonain Work Phone: Start: 10-14-2019 Assay of magnesium Iftrudy ferraro Adrienne Work Phone: Start: 10-14-2019 Assay of phosphorus inorganic Clinton Deleon Work Phone: Start: 10-14-2019 Blood count complete auto&auto difrntl wbc Clinton Deleon Work Phone: Start: 10-14-2019 Comprehensive metabo lic panel Clinton Deleon Work Phone: Start: 10-13-2019 Potassium serum plasma/whole blood johnathan Deleon Work Phone: Start: 10-13-2019 Radiologic exam ches t single view Iftjohnathan Deleon Work Phone: Start: 10-13-2019 Assay of magnesium Koffi patric A [employer] Work Phone: Start: 10-13-2019 Assay of phosphorus inorganic Nica A [employer] Work Phone: Start: 10-13-2019 Blood count complete auto&auto difrntl wbc Nica A Doron Work Phone: Start: 10-13-2019 Comprehensive metabo lic panel Carleneroor Romero Work Phone: Start: 10-12-2019 Speech and language therapy regime johnathan Deleon Work Phone: Start: 10-12-2019 EXTUBATION Iftjohnathan liang Work Phone: Start: 10-12-2019 Drug screen quantita tive vancomycin Clinton Deleon Work Phone: Start: 10-12-2019 POCT ARTERIAL Flavio Karen miguelito Work Phone: Start: 10-12-2019 Assay of magnesium Koffi patric A Doron Work Phone: Start: 10-12-2019 Assay of phosphorus inorganic Nica A Botmarco a Work Phone: Start: 10-12-2019 Blood count complete auto&auto difrntl wbc Nica A Doron Work Phone: Start: 10-12-2019 Comprehensive metabo lic panel Masroor Romero Work Phone: Start: 10-12-2019 Radiologic exam ches t single view [employer] Deleon Work Phone: Start: 10-11-2019 Radiologic exam ches t single view Parselyjohnathan Adrienne Work Phone: Start: 10-11-2019 Assay of magnesium Koffi ruelaser Marcos [employer] Work Phone: Start: 10-11-2019 Assay of phosphorus inorganic Nica Rodríguez [employer] Work Phone: Start: 10-11-2019 Blood count complete auto&auto difrntl wbc Nica A [employer] Work Phone: Start: 10-11-2019 Comprehensive metabo lic panel Masroor Romero Work Phone: Start: 10-11-2019 POCT ARTERIAL Rami Abbo ud Work Phone: Start: 10-10-2019 Radiologic exam ches t single view [employer] Adrienne Work Phone: Start: 10-10-2019 POCT ARTERIAL Rami Abbo ud Work Phone: Start: 10-10-2019 Assay of magnesium Koffi ruelaser Marcos [employer] Work Phone: Start: 10-10-2019 Assay of phosphorus inorganic Nica Rodríguez [employer] Work Phone: Start: 10-10-2019 Blood count complete auto&auto difrntl wbc Nica Rodríguez [employer] Work Phone: Start: 10-10-2019 Comprehensive metabo lic panel Masroor Romero Work Phone: Start: 10-09-2019 Smr prim src gram/gi emsa stain bct fungi/cell Masroor Romero Work Phone: Start: 10-09-2019 Virus centrifuge enh ncd id imfluor stain ea Masroor Romero Work Phone: Start: 10-09-2019 POCT ARTERIAL Luli farley Work Phone: Start: 10-09-2019 Blood count hemoglobin Nica Rodríguez [employer] Work Phone: Start: 10-09-2019 Radiologic exam ches t single view Carleneroor Romero Work Phone: Start: 10-09-2019 EXTUBATION Masrojoe sadler Work Phone: Start: 10-09-2019 Basic metabolic pane l calcium total Rami Judy Work Phone: Start: 10-09-2019 Blood count hemoglobin Nica Sal Work Phone: Start: 10-09-2019 POCT ARTERIAL Luli farley Work Phone: Start: 10-09-2019 Assay of magnesium Rami Judy Work Phone: Start: 10-09-2019 Assay of phosphorus inorganic Rami Judy Work Phone: Start: 10-09-2019 Basic metabolic pane l calcium total Rami Judy Work Phone: Start: 10-09-2019 Blood count complete auto&auto difrntl wbc Nica Rodríguez [employer] Work Phone: Start: 10-08-2019 Ecg routine ecg w/le ast 12 lds w/i&r Nica Sal Work Phone: Start: 10-08-2019 Basic metabolic pane l calcium total Rami Judy Work Phone: Start: 10-08-2019 Blood count hemoglobin Nica Sal Work Phone: Start: 10-08-2019 Echo tthrc r-t 2d w/wom-mode compl spec&colr d Rami Judy Work Phone: Start: 10-08-2019 Basic metabolic pane l calcium total Rami Judy Work Phone: Start: 10-08-2019 Blood count hemoglobin Nica Sal Work Phone: Start: 10-08-2019 Radiologic exam ches t single view Carleneroor Romero Work Phone: Start: 10-08-2019 Ecg routine ecg w/le ast 12 lds w/i&r Nica Sal Work Phone: Start: 10-08-2019 POCT ARTERIAL Luli cabrera Work Phone: Start: 10-08-2019 Assay of magnesium Koffi Rodríguez [employer] Work Phone: Start: 10-08-2019 Assay of phosphorus inorganic Nica Rodríguez [employer] Work Phone: Start: 10-08-2019 Blood count complete auto&auto difrntl wbc Nica Rodríguez [employer] Work Phone: Start: 10-07-2019 Basic metabolic pane l calcium total Rami Judy Work Phone: Start: 10-07-2019 Ecg routine ecg w/le ast 12 lds w/i&r Nica Rodríguez [employer] Work Phone: Start: 10-07-2019 Basic metabolic pane l calcium total Rami Judy Work Phone: Start: 10-07-2019 Ecg routine ecg w/le ast 12 lds w/i&r Nica Rodríguez [employer] Work Phone: Start: 10-07-2019 POCT ARTERIAL Luli cabrera Work Phone: Start: 10-07-2019 Assay of magnesium Koffi Rodríguez [employer] [employer] Work Phone: Start: 10-07-2019 Assay of phosphorus inorganic Nica Rodríguez [employer] Work Phone: Start: 10-07-2019 Basic metabolic pane l calcium total Nica Rodríguez [employer] Work Phone: Start: 10-07-2019 Blood count complete auto&auto difrntl wbc Nica Rodríguez [employer] Work Phone: Start: 10-06-2019 Ecg routine ecg w/le ast 12 lds w/i&r Nica Rodríguez [employer] Work Phone: Start: 10-06-2019 Basic metabolic pane l calcium total Rami Judy Work Phone: Start: 10-06-2019 POCT ARTERIAL Luli Jones eat Work Phone: Start: 10-06-2019 Smr prim src gram/gi emsa stain bct fungi/cell Rami Judy Work Phone: Start: 10-06-2019 Virus centrifuge enh ncd id imfluor stain ea Rami Judy Work Phone: Start: 10-06-2019 Basic metabolic pane l calcium total Rami Judy Work Phone: Start: 10-06-2019 Ecg routine ecg w/le ast 12 lds w/i&r Nica Rodríguez [employer] Work Phone: Start: 10-06-2019 POCT ARTERIAL Luli farley Work Phone: Start: 10-06-2019 ADD ON LAB TEST Nathalia Rodríguez [employer] Work Phone: Start: 10-06-2019 Assay of magnesium Koffi Rodríguez [employer] Work Phone: Start: 10-06-2019 Blood count complete auto&auto difrntl wbc Nica Rodríguez [employer] Work Phone: Start: 10-06-2019 MANUAL DIFFERENTIAL Ila yazmin Rodríguez [employer] Work Phone: Start: 10-06-2019 RENAL + LIVER PROF Koffi Rodríguez [employer] Work Phone: Start: 10-05-2019 Ecg routine ecg w/le ast 12 lds w/i&r Nica A [employer] Work Phone: Start: 10-05-2019 Basic metabolic pane [...] w/le ast 12 lds w/i&r Nica A [employer] Work Phone: Start: 10-05-2019 Ct angiography chest w/contrast/noncontrast Rami Judy Work Phone: Start: 10-05-2019 POCT ARTERIAL Luli farley Work Phone: Start: 10-05-2019 Radiologic exam ches t single view Nica Rodríguez [employer] Work Phone: Start: 10-05-2019 Calcium ionized Nathalia Rodríguez [employer] Work Phone: Start: 10-05-2019 ADD ON LAB TEST Mary Janend justina Rodríguez [employer] Work Phone: Start: 10-05-2019 Assay of magnesium Koffi patric Rodríguez [employer] Work Phone: Start: 10-05-2019 Assay of phosphorus inorganic Nica Rodríguez [employer] Work Phone: Start: 10-05-2019 Basic metabolic pane l calcium total Nica Rodríguez [employer] Work Phone: Start: 10-05-2019 Blood count complete auto&auto difrntl wbc Nica Rodríguez [employer] Work Phone: Start: 10-05-2019 MANUAL DIFFERENTIAL Ila yazmin A [employer] Work Phone: Start: 10-04-2019 Ecg routine ecg w/le ast 12 lds w/i&r Nica Rodríguez [employer] Work Phone: Start: 10-04-2019 Basic metabolic pane l calcium total Rami Judy Work Phone: Start: 10-04-2019 POCT ARTERIAL Luli farley Work Phone: Start: 10-04-2019 Procalcitonin (pct) Teo i Judy Work Phone: Start: 10-04-2019 Basic metabolic pane l calcium total Rami Judy Work Phone: Start: 10-04-2019 Ecg routine ecg w/le ast 12 lds w/i&r Nica Rodríguez [employer] Work Phone: Start: 10-04-2019 POCT ARTERIAL Luli farley Work Phone: Start: 10-04-2019 ADD ON LAB TEST Nathalia Rodríguez [employer] Work Phone: Start: 10-04-2019 Assay of magnesium Rami Judy Work Phone: Start: 10-04-2019 Assay of phosphorus inorganic Rami Judy Work Phone: Start: 10-04-2019 BASIC METABOLIC PANE L W/ REFLEX TO MG FOR LOW K Rami Judy Work Phone: Start: 10-04-2019 Blood count complete auto&auto difrntl wbc Rami Judy Work Phone: Start: 10-03-2019 Ecg routine ecg w/le ast 12 lds w/i&r Nica Rodríguez [employer] Work Phone: Start: 10-03-2019 Basic metabolic pane [...] 10-03-2019 Assay of magnesium Saurabh susie Lincoln Good Work Phone: Start: 10-03-2019 Assay of salicylate Temo id Latonia Good Work Phone: Start: 10-03-2019 Assay of troponin quantitative Luli Lincoln Good Work Phone: Start: 10-03-2019 Blood count complete auto&auto difrntl wbc Luli Lincoln [facility] Work Phone: Start: 10-03-2019 Comprehensive metabo lic panel Luli Lincoln Good Work Phone: Start: 10-03-2019 Creatine kinase total D nora Lincoln [facility] Work Phone: Start: 10-03-2019 CULTURE, BLOOD 1 Luli Lincoln Good Work Phone: Start: 10-03-2019 Natriuretic peptide Temo Lincoln [facility] Work Phone: Start: 10-03-2019 Ct [...] RSV Vaccine (1 - 1-dose 75+ series) [facility] Start: 07-12-2027 Diabetes Screening Diabetes Screenin g [facility] Start: 04-11-2027 Diabetes Screening Diabetes Screenin g [facility] Start: 12-06-2026 DTaP/Tdap/Td vaccine (2 - Td or Tdap) DTaP/Tdap/Td vaccine (2 - Td or Tdap) [facility] Work Phone: Start: 12-06-2026 DTaP/Tdap/Td vaccine (2 - Td) DTaP/Tdap/Td vaccine (2 - Td) [place] Start: 12-06-2026 DTaP/Tdap/Td Vaccine s (2 - Td or Tdap) DTaP/Tdap/Td Vaccines (2 - Td or Tdap) [facility] Start: 12-06-2026 Urine microalbumin profile [facility] Start: 11-08-2026 Diabetes Screening Diabetes Screenin g [facility] Start: 06-08-2026 Diabetes Screening Diabetes Screenin g [facility] Start: 05-11-2026 Diabetes Screening Diabetes Screenin g [facility] Start: 03-09-2026 Diabetes Screening Diabetes Screenin g [facility] Start: 12-30-2025 DIABETES SCREEN DIABETES SCREEN [facility] Start: 12-30-2025 Diabetes Screening Diabetes Screenin g [facility] Start: 11-10-2025 DIABETES SCREEN DIABETES SCREEN [facility] Start: 10-06-2025 DIABETES SCREEN DIABETES SCREEN [facility] Start: 04-14-2025 DIABETES SCREEN DIABETES SCREEN [facility] Start: 01-30-2025 Influenza vaccination C [facility] Start: 06-01-2024 Advance Directive Discussion Advance Directive Discussion [facility] Start: 06-01-2024 Medicare Advantage Annual Wellness Visit Medicare Advantage Annual Wellness Visit [facility] Start: 01-31-2024 Covid-19 Vaccine () Covid-19 Vaccine () [facility] Start: 01-31-2024 Influenza vaccination C [facility] Start: 01-07-2024 [facility] Start: 06-01-2023 Advance Directive Discussion Advance Directive Discussion [facility] Start: 06-01-2023 Behavioral Health Screening Behavioral Health Screening [facility] Start: 06-01-2023 Depression Assessment Depression Ass essment [facility] Start: 01-30-2023 Covid-19 Vaccine ( season) Covid-19 Vaccine () [facility] Start: 01-30-2023 Influenza vaccination C [facility] Start: 06-01-2022 ADVANCE DIRECTIVE DISCUSSION ADVANCE DIRECTIVE DISCUSSION [facility] Start: 06-01-2022 DEPRESSION ASSESSMENT DEPRESSION ASS ESSMENT [facility] Start: 01-30-2022 Influenza vaccination [facility] Start: 06-01-2021 ADVANCE DIRECTIVE DISCUSSION ADVANCE DIRECTIVE DISCUSSION [facility] Start: 06-01-2021 DEPRESSION ASSESSMENT DEPRESSION ASS ESSMENT [facility] Start: 2021 BONE DENSITY BONE DENSITY [facility] Start: 2021 Bone Density Screening Bone Density Screening [facility] Start: 2021 Pneumococcal Vaccine : 65+ (1 of 1 - PCV) Pneumococcal Vaccine: 65+ (1 of 1 - PCV) [facility] Start: 2021 PNEUMOVAX AGE 65 AND OVER WITH 5YR LOOKBACK (#1) PNEUMOVAX AGE 65 AND OVER WITH 5YR LOOKBACK (#1) [facility] Start: 2021 Screening for osteoporosis Bone Density Screening [facility] Start: 01-30-2021 Influenza vaccination 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 [place] Start: 10-23-2020 Potassium monitoring Potassium monit oring [place] Start: 08-22-2020 COVID-19 VACCINE (3 - Booster for Pfizer series) COVID-19 VACCINE (3 - Booster for Pfizer series) [facility] Start: 08-22-2020 COVID-19 VACCINE (3 - Pfizer series) COVID-19 VACCINE (3 - Pfizer series) [facility] Start: 01-31-2020 Influenza vaccination M [place] Start: 12-31-2019 BP CONTROLLED (<130/80) BP CONTROLLE D (<130/80) [facility] Start: 11-02-2019 Adult depression screening assessment DEPRESSION SCREENING [facility] Start: 06-05-2017 Screening for malign ant neoplasm of breast Breast cancer screen [place], [place] Start: 2016 RSV Vaccine (1 - 1-d ose 60+ series) RSV Vaccine (1 - 1-dose 60+ series) [facility] Start: 2006 Pneumococcal Vaccine : 50+ (1 of 1 - PCV) Pneumococcal Vaccine: 50+ (1 of 1 - PCV) [facility] Start: 2006 Screening for malign ant neoplasm of colon Colon cancer screen colonoscopy [place], [place] Start: 2006 Shingles Vaccine (1 of 2) Shingles Vaccine (1 of 2) [place] Start: 2006 SHINGRIX VACCINE (1 of 2) SHINGRIX VACCINE (1 of 2) [facility] Start: 2006 Zoster Vaccines (1 of 2) Zoste r Vaccines (1 of 2) [facility] Start: 2001 COLOGUARD (FIT-DNA) COLOGUARD (FIT-D NA) [facility] Start: 2001 Colonoscopy COLONOSCOPY [facility] Start: 2001 COLORECTAL CANCER SCREENING COLORECTAL CANCER SCREENING [facility] Start: [address] COLONOGRAPHY [facility] Start: 2001 FECAL OCCULT BLOOD FECAL OCCULT BLOO D [facility] Start: 2001 Lipid 1996 panel - S alfonzo or Plasma Lipid Screening [facility] Start: 2001 Lipid panel Lipid Screening [facility] Start: 2001 LIPID SCREEN LIPID SCREEN [facility] Start: 2001 Screening for malign ant neoplasm of colon [facility] Start: 2001 SIGMOIDOSCOPY SIGMOIDOSCOPY [facility] Start: 1996 Mammography [facility] Start: 1996 Screening for malign ant neoplasm of breast [facility] Start: 1974 Anxiety Screening Anxiety Screening [facility] Start: 1974 Depression Screening Depression Scre ening [facility] Start: 1974 Diabetes mellitus screening Diabetes Screening [facility] Start: 1974 HIV SCREENING HIV SCREENING [facility] Start: 1968 COVID-19 Vaccine (1) COVID-19 Vaccin e (1) [facility] Work Phone: Start: 1968 Depression Screening Depression Scre ening [facility] Start: 1962 Pneumococcal 0-64 ye ars Vaccine (1 of 1 - PPSV23) Pneumococcal 0-64 years Vaccine (1 of 1 - PPSV23) [place] Start: 1962 Pneumococcal 0-64 ye ars Vaccine (1 of 2 - PPSV23) Pneumococcal 0-64 years Vaccine (1 of 2 - PPSV23) [facility] Work Phone: Start: 1962 Pneumococcal Vaccine : 65+ (1 - PCV) Pneumococcal Vaccine: 65+ (1 - PCV) [facility] Start: 1962 Pneumococcal Vaccine : 65+ (1 of 2 - PCV) Pneumococcal Vaccine: 65+ (1 of 2 - PCV) [facility] Start: 1962 Pneumococcal Vaccine : 65+ Years (1 - PCV) Pneumococcal Vaccine: 65+ Years (1 - PCV) [facility] Start: 1962 PNEUMOCOCCAL: 65+ (1 - PCV) PNEUMOCOCCAL: 65+ (1 - PCV) [facility] Start: 1956 Lipid panel Lipid Panel [facility] Start: 1956 Screening for malign ant neoplasm of colon [facility] Start: 1956 Screening for osteoporosis Bone Density Scan [facility] Acapella Acapella Respira tory Care Routine Daily until discontinued starting 10/25/2019 [place] Comment on above: Daily until disconti nued starting 10/25/2019 Basic metabolic 2000 panel [facility], [place] Comment on above: Daily until disconti nued starting 01/30/2020, 4 completed Daily until disconti nued starting 10/15/2019, 9 completed End: 11-05-2019 Basic Metabolic Panel w/ Reflex to MG Basic Metabolic Panel w/ Reflex to MG Lab Routine Tomorrow AM for 1 Occurrences starting 11/05/2019 until 11/05/2019 [facility] Comment on above: Tomorrow AM for 1 Oc currences starting 11/05/2019 until 11/05/2019 BIPAP BIPAP Respirator y Care Routine Every 4hr until discontinued starting 10/24/2019 [facility] Comment on above: Every 4hr until disc ontinued starting 10/24/2019 End: 01-15-2021 Blood gas, venous Blood gas, venous Lab STAT One Time for 1 Occurrences starting 01/15/2021 until 01/15/2021 [facility] Work Phone: Comment on above: One Time for 1 Occur rences starting 01/15/2021 until 01/15/2021 Calcium, Ionized Calcium, Ionize d Lab Routine Daily until discontinued starting 10/22/2019, 4 completed [facility] Comment on above: Daily until disconti nued starting 10/22/2019, 4 completed End: 11-05-2019 CBC CBC Lab Routine Tomorrow AM for 1 Occurrences starting 11/05/2019 until 11/05/2019 [facility] Comment on above: Tomorrow AM for 1 Oc currences starting 11/05/2019 until 11/05/2019 CBC Auto Differential [facility] Comment on above: Daily until disconti nued starting 01/30/2020, 4 completed Daily until disconti nued starting 10/15/2019, 9 completed End: 10-03-2019 COVID-19 COVID-19 Lab Routine Once for 1 Occurrences starting 10/03/2019 until 10/03/2019 [facility], [place] Comment on above: Once for 1 Occurrenc es starting 10/03/2019 until 10/03/2019 COVID-19 COVID-19 Lab Rou carlos 10/03/2019 6:06 PM EDT [facility] [place] End: 01-31-2020 CRP [Mass/Vol] C-Reactive Protein Lab Add-On One Time for 1 Occurrences starting 01/31/2020 until 01/31/2020 [place] Comment on above: One Time for 1 Occur rences starting 01/31/2020 until 01/31/2020 End: 06-12-2022 Ct lower extremity w/o contrast material [facility] Work Phone: Comment on above: 1 Occurrences starti ng 06/12/2022 until 06/12/2022 End: 11-04-2019 Culture, Anaerobic and Aerobic Culture, Anaerobic and Aerobic Microbiology STAT One Time for 1 Occurrences starting 11/04/2019 until 11/04/2019 [place] Comment on above: One Time for 1 Occur rences starting 11/04/2019 until 11/04/2019 Culture, Anaerobic a nd Aerobic [place] End: 01-05-2021 Culture, Anaerobic and Aerobic Culture, Anaerobic and Aerobic Microbiology STAT One Time for 1 Occurrences starting 01/05/2021 until 01/05/2021 [facility] Work Phone: Comment on above: One Time for 1 Occur rences starting 01/05/2021 until 01/05/2021 End: 11-04-2019 Culture, Blood 1 Culture, Blood 1 Microbiology STAT One Time for 1 Occurrences starting 11/04/2019 until 11/04/2019 [place] Comment on above: One Time for [...] for 1 Occurrences starting 11/04/2019 until 11/04/2019 [facility] [place] Comment on above: One Time for 1 [...] for 1 Occurrences starting 01/05/2021 until 01/05/2021 [facility] Work Phone: Comment on above: One Time [...] left 1 Occurrences starting 03/17/2022 until 04/16/2023 [facility] Work Phone: Comment on above: 1 Occurrences starti ng 03/17/2022 until 04/16/2023 ECG 12 lead ECG 12 lead CV E CG STAT 11/17/2022 9:13 AM EDT [facility] Work Phone: EKG 12 Lead [facility] [place] Comment on above: As Needed until disc ontinued starting 10/08/2019 Hepatic Function Panel Hepatic F unction Panel Lab Routine Daily until discontinued starting 10/15/2019, 9 completed [facility] [place] Comment on above: Daily until disconti nued starting 10/15/2019, 9 completed End: 10-25-2019 Home O2 eval (desaturation screen) Home O2 eval (desaturation screen) Respiratory Care Routine One Time for 1 Occurrences starting 10/25/2019 until 10/25/2019 [facility] One Time for 1 Occur rences starting 10/25/2019 until 10/25/2019 Initiate Oxygen Ther [facility]y Protocol [facility] Comment on above: Daily until disconti nued [...] Daily until discontinued starting 10/22/2019, 4 [facility] above: Daily until disconti nued starting 10/22/2019, 4 completed End: 12-12-2023 AMANDA SCREENING AMANDA SCREENING Radiology Routine Encounter for screening mammogram for breast cancer 1 Occurrences starting 11/12/2022 until 12/12/2023 [facility] Work Phone: Comment on above: 1 Occurrences [...] EDT [facility] Work Phone: Oxygen therapy [[facility] Data Set] [facility] on above: Daily until disconti nued starting 01/27/2020 Daily until disconti nued starting 01/05/2021 Daily until disconti nued starting 01/15/2021 End: 10-04-2019 PBP2A TEST FOR S. AUREUS PBP2A TEST FOR S. AUREUS Lab Routine Once for 1 Occurrences starting 10/04/2019 until 10/04/2019 [facility]: Once for 1 Occurrenc es starting 10/04/2019 until 10/04/2019 End: 10-09-2019 PBP2A TEST FOR S. AUREUS PBP2A TEST FOR S. AUREUS Lab Routine Once for 1 Occurrences starting 10/09/2019 until 10/09/2019 [facility] above: Once for 1 Occurrenc es starting 10/09/2019 until 10/09/2019 PBP[facility] [Mass/Vol] Phosphorus Lab Routine Daily until discontinued starting 10/22/2019, 4 completed [facility] Comment on above: Daily until disconti nued starting 10/22/2019, 4 completed End: 10-03-2019 Procalcitonin Procalcitonin Lab Routine One Time for 1 Occurrences starting 10/03/2019 until 10/03/2019 [facility] above: One Time for 1 Occur rences starting 10/03/2019 until 10/03/2019 Procalcitonin [place] Comment on above: Q48H until discontin ued starting 01/05/2021, 1 completed Q48H until discontin ued starting 01/15/2021, 1 completed End: 01-31-2020 Sedimentation Rate Sedimentation Rate Lab Add-On One Time for 1 Occurrences starting 01/31/2020 until 01/31/2020 [facility] above: One Time for 1 Occur rences starting 01/31/2020 until 01/31/2020 Spirometry panel [place] Comment on above: Daily until disconti nued starting 01/27/2020 Every 2hr while awak e until discontinued starting 02/02/2020 End: 01-15-2021 Urinalysis Urinalysis Lab STAT One Time for 1 Occurrences starting 01/15/2021 until 01/15/2021 [facility] Work Phone: Comment on above: One Time for 1 Occur rences starting 01/15/2021 until 01/15/2021 End: 04-16-2023 Us breast uni real time with image limited US BREAST LTD Radiology Routine Breast pain, left 1 Occurrences starting 03/17/2022 until 04/16/2023 [facility] Work Phone: Comment on above: 1 Occurrences starti ng 03/17/2022 until 04/16/2023 End: 01-30-2020 Wound ostomy eval Wound ostomy eval Wound Ostomy Routine One Time for 1 Occurrences starting 01/30/2020 until 01/30/2020 [facility] Comment on above: One Time for 1 Occur rences starting 01/30/2020 until 01/30/2020 [facility] Immunizations Immunization Date Immunization Notes Care Provider Laine lock 03-25-2018 influenza, injectabl e, quadrivalent, preservative free Moreno Oates MD Work Phone: [facility] 03-25-2018 influenza virus vacc ine, unspecified formulation Marc Goodman DO Work Phone: [facility] 01-29-2017 influenza, injectabl e, quadrivalent, contains preservative Moreno Oates MD Work Phone: [facility] 01-11-2017 influenza, injectabl e, quadrivalent, preservative free Moreno Oates MD Work Phone: [facility] 12-06-2016 tetanus toxoid, redu milton diphtheria toxoid, and acellular pertussis vaccine, adsorbed [facility] 03-23-2016 influenza, injectabl e, quadrivalent, preservative free Moreno Oates MD Work Phone: [facility] 02-15-2016 Influenza Vaccine, unspecified formulation [place] 02-15-2016 influenza, injectabl e, quadrivalent, preservative free Moreno Oates MD Work Phone: [facility] 02-15-2016 influenza, seasonal, injectable Moreno Oates MD Work Phone: [facility] 03-24-2015 influenza nasal, unspecified formulation Moreno Oates MD Work Phone: [facility] 03-24-2015 influenza virus vacc ine, unspecified formulation [facility] [place] 03-24-2015 influenza, seasonal, injectable, preservative free Moreno Oates MD Work Phone: [facility] 04-04-2009 novel Influenza-H1N1 -09, live virus for nasal administration Moreno Oates MD Work Phone: [facility] Payers Date Payer Category Payer Self-pay [id number] 2021 Private Health Insurance 2021 Unknown [id number] 2021 Medicare MEDICARE MEDICAR E A AND B [id number] 2021-[facility] [phone] [place] [address] Medicare [id number] 2021 Medicare MEDICARE MEDICAR E A AND B [id number] 2021-Present [phone] [address] [address] [place] [address] Medicare [id number] [facility] DEPT OF JOB xxxxxxxxxxxx 2019-Present [phone] [address] [place] [address] xxxxxxxxxxxx [id number] 2018 Medicaid [id number] 2018 Medicaid MEDICAID [facility] MEDICAID [id number] 2018-Present [phone] [address] [place] [address] Medicaid [id number] 2018 Medicaid [id number] 2018 Unknown [id number] 1959 Unknown [id number] 1955 Unknown [id number] 1956 Unknown [id number] 1956 Unknown [id number] Unknown [id number] .[id number] Unknown [id number] .462 Unknown [id number] .[id number] Unknown [id number] .462 Unknown [id number] .462 Unknown [id number] .462 Unknown [id number] .462 Unknown [id number] .462 Unknown [id number] .462 Unknown [id number] .462 Unknown [id number] .462 Unknown [id number] .462 Social History Date Type Detail Facility Start: 11-04-2019 End: 01-29-2020 Tobacco smoking status NHIS Former smoker [place], [place] Start: [birth year]-01-1968 History of tobacco use Cigarette Smo ker [place] Start: 11-04-2019 End: 06-16-2022 Cigarettes smoked current (pack per day) - Reported [facility] Work Phone: Start: 11-04-2019 End: 12-21-2020 Alcohol intake Current non-drinker of alcohol (finding) [place] Start: 1955 Sex Assigned At Not on file [place], [place] Exposure to SARS-CoV -2 (event) Unable to assess [place] Start: 04-17-2017 End: 01-29-2020 Tobacco use and exposure Never used [place] Exposure to SARS-CoV -2 (event) [facility] sure [facility]: [birth year][facility]1968 End: 10-23-2019 Tobacco smoking status NHIS Current every day smoker [facility] Start: 11-05-2019 History SDOH Financial 4 [facility] Start: 11-05-2019 History SDOH Food Worry 2 [facility] Start: 1955 Sex Assigned At Female W [facility] Start: 05-20-2022 End: 06-16-2022 Tobacco use panel [facility] Work Phone: National Score (1-10 0), lower number is lower risk 86 [facility] How hard is it for y ou to pay for the very basics like food, housing, medical care, and heating Not very hard [facility] Work Phone: (I/We) worried margarito er (my/our) food would run out before (I/we) got money to buy more. Sometimes true [facility] Work Phone: Tobacco smoking stat us NHIS Unknown if ever smoked [facility] Work Phone: Start: 09-02-2024 Sex Female (finding) [facility] Medical Equipment Procedure Code Equipment Code Equipment Origin al Text Equipment Identifier Dates Block Gmrs Small 10mm Augmentation Femoral Distal - [id number] Start: 03-19-2018 Cement Simplex P Bone Radiopaque Full Dose Sterile - [id number] Start: 06-06-2016 Comment on above: Description: simplex p bone cement Cement Simplex P Bone Radiopaque Full Dose Sterile - [id number] Start: 01-28-2017 Comment on above: Description: simplex p bone cement Cement Simplex P Tobramycin Bone Full Dose Radiopaque Preblend Sterile - [id number] Start: 03-19-2018 Ego-Yu-F-Kind Im plant - [id number] Start: 07-06-2017 Comment on above: Description: cancell ous screw Component Gmrs Polyethylene Femoral Pack Crosslink Knee - [id number] Start: 03-19-2018 Stem Kinemax Clyde r 80mm Femoral Cement Knee - [id number] Start: 03-19-2018 Extension Kinema x Xs Cocr 40mm Stem Cemented Knee Femoral - [id number] Start: 03-19-2018 Component Triath rafiq 5 Femoral Cemented Posterior Stabilize Knee Right - [id number] Start: 06-06-2016 Insert Triathlon 6 X3 13mm Tibial Posterior Stabilized Bearing Knee - [id number] Start: 06-06-2016 Component Triath rafiq 5 Femoral Cemented Posterior Stabilize Knee Left - [id number] Start: 01-28-2017 Comment on above: Description: triathl on posterior stabilized femoral Insert Triathlon 5 X3 11mm Tibial Posterior Stabilized Bearing Knee - [id number]_[facility] Start: 01-28-2017 Comment on above: Description: triathl on tibial bearing insert - ps Insert Triathlon 6 X3 16mm Tibial Posterior Stabilized Bearing Knee - [id number] Start: 04-20-2017 Comment on above: Description: Tibial Bearing Insert-PS Insert Triathlon 6 X3 19mm Tibial Posterior Stabilized Bearing Knee - [id number] Start: 07-06-2017 Comment on above: Description: triathl on X3 tibial bearing insert - ps Restrictor Mediu m [place] Cement Disposable Irs Agent Distal - [id number] Start: 03-19-2018 Restrictor Mediu m [place] Cement Disposable Irs Agent Distal - [id number] Start: 03-19-2018 Component Xs Sma ll Medium Tibial Rotate Hinge Knee - [id number] Start: 03-19-2018 Axle Femoral Mod ular Rotate Hinge Knee - [id number]_imp Start: 03-19-2018 Wedge Duracon S2 Full 10mm Tibial Revision Knee - [id number] Start: 03-19-2018 Insert Gmrs Thk1 3mm S1 S2 Tibial Modular Rotate Hinge Proximal - [id number]_imp Start: 03-19-2018 [place]ushing Femoral Modular Rotate Hinge Knee - [id number] Start: 11-06-2019 Insert Gmrs Neut ral Bumper Modular Rotate Hinge Knee Proximal - [id number] Start: 11-06-2019 Sleeve Tibial Mo dular Rotate Hinge Knee - [id number] Start: 11-06-2019 Insert Gmrs Thk1 3mm S1 S2 Tibial Modular Rotate Hinge Proximal - [id number] Start: 11-06-2019 Axle Femoral Mod ular Rotate Hinge Knee - [id number] Start: 11-06-2019 Component Xs Sma ll Medium Tibial Rotate Hinge Knee - [id number] Start: 11-06-2019 [place] Femoral Modular Rotate Hinge Knee - [id number] _imp Start: 11-06-2019 Bushing Femoral Modular Rotate Hinge Knee - [id number] Start: 12-19-2020 [place]ushing Femoral Modular Rotate Hinge Knee - [id number] Start: 12-19-2020 Component Xs Sma ll Medium Tibial Rotate Hinge Knee - [id number]_imp Start: 12-19-2020 Insert Gmrs Thk1 3mm S1 S2 Tibial Modular Rotate Hinge Proximal - [id number]_imp Start: 12-19-2020 Sleeve Tibial Mo dular Rotate Hinge Knee - [id number] Start: 12-19-2020 Insert Gmrs Neut ral Bumper Modular Rotate Hinge Knee Proximal - [id number] Start: 12-19-2020 Axle Femoral Mod ular Rotate Hinge Knee - [id number] Start: 12-19-2020 Component Triath rafiq 32mm Asymmetric X3 10mm Patellar Knee - [id number] Start: 06-06-2016 Component Triath rafiq 32mm Asymmetric X3 10mm Patellar Knee - [id number] [id number]_[facility] Start: 01-28-2017 Comment on above: Description: triathl on X3 asymmetric patella Component Gmrs M edium 50a76ae Femoral Modular Rotate Hinge Knee Left - [id number]_imp Start: 03-19-2018 Component Gmrs S mall Titanium 10x42qc Femoral Modular Rotate Hinge Knee - [id number] 1585940_imp Start: 03-19-2018 Mesh Marlex Polypropylene 60h28jp Surgical Patch Flat Sheet Knit Hernia - [id number] Start: 07-06-2017 Comment on above: Description: bard justin sh Mesh Marlex Polypropylene 01b06cc Surgical Patch Flat Sheet Knit Hernia - [id number] [id number]_imp Start: 03-19-2018 Baseplate Triath rafiq 6 Tibial Primary Cement Knee - [id number]_imp Start: 06-06-2016 Baseplate Triath rafiq 5 Tibial Primary Cement Knee - [id number] [id number] Start: 01-28-2017 Comment on above: Description: triathl on primary tibial baseplate Baseplate S2 Tib ial Modular Rotate Hinge Knee - [id number]_imp Start: 03-19-2018 Washer 6.5 / 8.0 mm Asnis 3 - [id number]_imp Start: 07-06-2017 Comment on above: Description: washer CHRISTINA CHECK Functional Status Date Assessment Result Facility 01-08-2021 Are you deaf, or do you have serious difficulty hearing No 01/08/2021 2:54 PM EDT Turner Patten, JENN No [facility] 01-08-2021 Are you blind, or do you have serious difficulty seeing, even when wearing glasses No 01/08/2021 2:54 PM EDT Turner Patten, JENN No [facility] 01-08-2021 Do you have serious difficulty walking or climbing stairs Yes 01/08/2021 2:54 PM EDT Turner Patten, JENN Yes [facility] 01-08-2021 Do you have difficul ty dressing or bathing Yes 01/08/2021 2:54 PM EDT Turner Patten, RN Yes [facility] 01-08-2021 Because of a physica l, mental, or emotional condition, do you have difficulty doing errands alone such as visiting a physician's office or shopping Yes 01/08/2021 2:54 PM EDT Turner Patten, RN Yes [facility] Mental Status Date Assessment Result Facility 01-08-2021 Because of a physica l, mental, or emotional condition, do you have serious difficulty concentrating, remembering, or making decisions No 01/08/2021 2:54 PM EDT Turner Patten, RN No [facility] Clinical Notes 11-26-2017 to 12-07-2024 Telephone Encounter - Fadumo Rahman LPN - 12/07/2024 1:37 PM EDTTelephone Encounter - Fadumo Rahman LPN - 12/07/2024 1:37 PM EDTTelephone Encounter - Moreno Oates MD - 12/07/2024 1:26 PM EDT Note Date & Type Note Facility 12-07-2024 Telephone encounter Note Natalia aware of PT order from Dr Oates [facility] 12-07-2024 Miscellaneous Notes Natalia aware of PT order from Dr Oates Recommend physical therapy eval and treat. Moreno Oates MD Spoke with nurse Rankin - not currently with patient Pt informed [...] AND present > 4 weeks) Protocols used: [id number]-SD Natalia from [facility] calling updating that patient is having neck pain (9 out of 10). Neck pain is causing headaches. Patient has been identified by name and birthdate. Duration of symptoms: few days Please return call to [facility] and ask for the "300 nurse". Please call [phone] Was an appointment scheduled: No Closing statement: Symptom Call: Thank you for calling [facility], your call is very important. A nurse will call in approximately 2-4 hours during business hours. If this is an emergency, please contact 911. Mary Jo Genao documented in this encounter [facility] 12-07-2024 Telephone encounter Note Recommend physical therapy eval and treat. Moreno Oates MD [facility] 12-07-2024 Telephone encounter Note Spoke [...] AND present > 4 weeks) Protocols used: [id number]-MX [facility] 12-07-2024 Telephone encounter Note Natalia from [facility] calling updating that patient is having neck pain (9 out of 10). Neck pain is causing headaches. Patient has been identified by name and birthdate. Duration of symptoms: few days Please return call to [facility] and ask for the "300 nurse". Please call [phone] Was an appointment scheduled: No Closing statement: Symptom Call: Thank you for calling [facility], your call is very important. A nurse will call in approximately 2-4 hours during business hours. If this is an emergency, please contact 911. Mary Jo Genao [facility] 11-18-2024 Telephone encounter Note The [...] 30 days. Authorizing Provider: MORENO OATES MD [facility] 11-18-2024 Miscellaneous Notes The following [...] MORENO OATES MD documented in this encounter [facility] 11-10-2024 Telephone encounter Note [facility] patient. Medications will 11/13/2024 [facility] 11-10-2024 Miscellaneous Notes [facility] patient. Medications will 11/13/2024 documented in this encounter [facility] 10-20-2024 Note Hospitalist Discharg e [...] chronic hypoxic respiratory failure who resides at [facility] facility presenting for several days of worsening [...] Complexity: follow up within 7-14 calendar days (57568) [x] Severe Complexity: follow up within 7 calendar days (22337) Follow up Testing, Pending results or Referrals [...] discharge instructions from (more content not included)... [facility] 10-20-2024 Note PHYSICAL THERAPY [facility] Initial Evaluation Name/MRN: Charlie Nguyen ([id number]) Evaluation Date: 10/20/2024 Date of : 1955 Admission Date: 10/17/2024 12:22 PM Age: 69 y.o. Room/Bed: B2256/B2256 A Discharge Recommendation: F with PT, [facility] Facility Assessment IMPRESSION: Pt is a 69yo female admitted to ED on 10/17 from [facility] with complaints of AMS and fever. Staff reports pt has been hallucinating. Pt found to have UTI. Prior to admission, pt lived at [facility] for ~3 years. Pt states she [...] independence in functional mobility. Recommend return to [facility] with PT at discharge. Admitting Diagnosis: UTI [...] Contusion of right knee 02/03/2020 Benzodiazepine dependence ([facility]) 01/31/2020 Generalized weakness 01/27/2020 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[facility]) 11/04/2019 Intentional drug overdose ([facility]) 10/25/2019 Aspiration pneumonia ([facility] ([facility] 10/25/2019 Drug overdose, multiple drugs, accidental or unintentional, initial encounter 10/25/2019 Palliative care encounter 10/20/2019 Unspecified mood (affective) disorder ([facility]) 10/12/2019 Acute respiratory failure with hypoxia ([facility]) 10/08/2019 Hypertension 03/26/2015 Chronic nonintractable headache 03/26/2015 Glioma ([facility]) 02/08/2015 Migraine 12/11/2014 Internal derangement of right [...] edge of b (more content not included)... [facility] 10-19-2024 Note [facility] Respiratory Care Department Progress Note Comment [...] Respiratory in the care of this patient, [facility] 10-19-2024 Note Hospitalist Progress Note 10/19/2024 [phone]: Please page me ([phone]) for patient care issues. [phone]: Please page [facility] [...] - Date - 10/20 - Location - [facility] Facility - Pending the following - improvement in UTI. UC Toxic drug monitoring/narrow therapeutic index drug monitoring : # Drug name : # Route administered : # Method of monitoring : Extended Emergency Contact Information Primary Emergency Contact: Vicente Driscoll Mobile Relation: Daughter Red Guidry, Division of Hospitalist Medicine Inpatient Medical Services/[facility] PAGER: Mark murray [1] Past Medical History: Diagnosis Date Anxiety [...] 100 mg, Oral, (more content not included)... [facility] 10-19-2024 Note Patient sleeping com fortably, will attempt smoking cessation counseling at a later time. [facility] 10-18-2024 Note Hospitalist Progress Note 10/18/2024 [phone]: Please page me ([phone]) for patient care issues. [phone]: Please page [facility] [...] Services/[facility] PAGER: [email or web address] chat [1] Past Medical History: Diagnosis Date [...] Oral, Nightly pregabalin, 100 mg, Oral, BID [facility] 10-18-2024 Note SNF Return Referral placed to [facility] via [facility] per TCC request. Awaiting review and response regarding ability to accept. TCC notified. [facility] 10-17-2024 Note Attending History an d Physical [...] have . Patient currently resides in a intermediate and staff were concerned regarding patient developing [...] Resource Strain: Low Risk (11/05/2019) Received from [facility] Overall Financial Resource Strain (CARDIA) Difficulty of Paying Living Expenses: Not very hard Food Insecurity: Food Insecurity Present (11/05/2019) Received from [facility] Hunger Vital Sign Worried About Running Out of Food in the Last Year: Sometimes true Ran Out of Food in the Last Year: Sometimes true Transportation Needs: No Transportation Needs (11/05/2019) Received from [facility] PRAPARE - Transportation Lack of [...] present. Mental S (more content not included)... [facility] 10-14-2024 Telephone encounter Note [facility] patient. The following approved medication requests have [...] 30 days. Authorizing Provider: MORENO OATES MD T [facility] 10-14-2024 Miscellaneous [facility]. The following approved medication requests have [...] MORENO OATES MD documented in this encounter [facility] 09-16-2024 Telephone encounter Note Pt resides at [facility] The following approved medication requests have been [...] 30 days. Authorizing Provider: MORENO OATES MD [facility] 09-16-2024 Miscellaneous Notes Pt resides at [facility] The following approved medication requests have been [...] MORENO OATES MD documented in this encounter [facility] 08-18-2024 Telephone encounter Note The [...] 30 days. Authorizing Provider: MORENO OATES MD [facility] 08-18-2024 Miscellaneous Notes The following [...] MORENO OATES MD documented in this encounter [facility] 07-22-2024 Telephone encounter Note [facility] patient. [facility] 07-22-2024 Miscellaneous Notes [facility] patient. documented in this encounter [facility] 07-18-2024 Telephone encounter Note Received 07/18/2024 from [facility]. Placed in provider's inbox for review. Route to PR for scanning. [facility] 07-18-2024 Miscellaneous Notes Received 07/18/2024 from [facility]. Placed in provider's inbox for review. Route to PR for scanning. documented in this encounter [facility] 06-23-2024 Telephone encounter Note The [...] 30 days. Authorizing Provider: MORENO OATES MD [facility] 06-23-2024 Miscellaneous Notes The following [...] MORENO OATES MD documented in this encounter [facility] 05-24-2024 Telephone encounter Note The [...] 30 days. Authorizing Provider: MORENO OATES MD [facility] 05-24-2024 Miscellaneous Notes The following [...] MORENO OATES MD documented in this encounter [facility] 04-22-2024 Telephone encounter Note The following approved medication requests have been transmitted electronically. Requested Prescriptions Signed Prescriptions Disp Refills diazePAM (VALIUM) 5 mg tablet 60 tablet 0 Sig: Take 1 tablet by mouth two times a day for 30 days. Authorizing Provider: MORENO OATES MD [facility] 04-22-2024 Miscellaneous Notes The following approved medication requests have been transmitted electronically. Requested Prescriptions Signed Prescriptions Disp Refills diazePAM (VALIUM) 5 mg tablet 60 tablet 0 Sig: Take 1 tablet by mouth two times a day for 30 days. Authorizing Provider: MORENO OATES MD Received refill request from [facility]. Pended please advise. documented in this encounter [facility] 04-22-2024 Telephone encounter Note The following approved medication requests have been transmitted electronically. [facility] pt Requested Prescriptions Signed Prescriptions Disp Refills oxyCODONE-acetaminophen (PERCOCET) 5-325 mg tablet 120 tablet 0 Sig: Take 1 tablet by mouth every 6 hours for 30 days. Authorizing Provider: MORENO OATES pregabalin (LYRICA) 150 mg capsule 60 capsule 0 Sig: Take 1 capsule by mouth two times a day for 30 days. Authorizing Provider: MORENO OATES MD [facility] 04-22-2024 Miscellaneous Notes The following approved medication requests have been transmitted electronically. [facility] pt Requested Prescriptions Signed Prescriptions Disp Refills oxyCODONE-acetaminophen (PERCOCET) 5-325 mg tablet 120 tablet 0 Sig: Take 1 tablet by mouth every 6 hours for 30 days. Authorizing Provider: MORENO OATES pregabalin (LYRICA) 150 mg capsule 60 capsule 0 Sig: Take 1 capsule by mouth two times a day for 30 days. Authorizing Provider: MORENO OATES MD documented in this encounter [facility] 04-21-2024 Telephone encounter Note Received refill request from [facility]. Pended please advise. [facility] 04-12-2024 Telephone encounter Note Received from [facility]. Placed in provider's inbox for review. Route to PR for scanning. [facility] 04-12-2024 Miscellaneous Notes Received from [facility]. Placed in provider's inbox for review. Route to PR for scanning. documented in this encounter [facility] 03-31-2024 Telephone encounter Note Patient's [...] two times a day for 30 days. [facility] 03-31-2024 Miscellaneous Notes Patient's request [...] request from [facility] documented in this encounter [facility] 03-31-2024 Telephone encounter Note Rx request from [facility] 03-25-2024 Telephone encounter Note The [...] 30 days. Authorizing Provider: MORENO OATES MD [facility] 03-25-2024 Miscellaneous Notes The following [...] MORENO OATES MD documented in this encounter [facility] 03-24-2024 Telephone encounter Note The following approved medication requests have been transmitted electronically. Requested Prescriptions Signed Prescriptions Disp Refills diazePAM (VALIUM) 5 mg tablet 60 tablet 0 Sig: Take 1 tablet by mouth two times a day for 30 days. Authorizing Provider: MROENO OATES MD [facility] 03-24-2024 Miscellaneous Notes The following approved medication requests have been transmitted electronically. Requested Prescriptions Signed Prescriptions Disp Refills diazePAM (VALIUM) 5 mg tablet 60 tablet 0 Sig: Take 1 tablet by mouth two times a day for 30 days. Authorizing Provider: MORENO OATES MD Refill request from [facility], pended. documented in this encounter [facility] 03-24-2024 Telephone encounter Note Refill request from [facility], pended. [facility] 03-17-2024 Telephone encounter Note Received orders from [facility]. Placed in provider's inbox for review. Route to [place] fax [facility] 03-17-2024 Miscellaneous Notes Received orders from [facility]. Placed in provider's inbox for review. Route to [place] fax documented in this encounter [facility] 03-10-2024 Telephone encounter Note Received outside lab results from [facility]. Placed in provider's inbox for review. Route to [place] scanning [facility] 03-10-2024 Miscellaneous Notes Received outside lab results from [facility]. Placed in provider's inbox for review. Route to [place] scanning documented in this encounter [facility] 02-26-2024 Telephone [facility] . The following approved medication requests [...] 30 days. Authorizing Provider: MORENO OATES MD [facility] 02-26-2024 Miscellaneous Notes [facility] patient. [...] MORENO OATES MD documented in this encounter [facility] 01-28-2024 Telephone encounter Note [facility] patient Requested Prescriptions Signed Prescriptions Disp Refills oxyCODONE-acetaminophen (PERCOCET) 5-325 mg tablet 120 tablet 0 Sig: Take 1 tablet by mouth every 6 hours for 30 days. Authorizing Provider: MORENO OATES pregabalin (LYRICA) 150 mg capsule 60 capsule 0 Sig: Take 1 capsule by mouth two times a day for 30 days. Authorizing Provider: MORENO OATES [facility] 01-28-2024 Miscellaneous Notes [facility] patient Requested Prescriptions Signed Prescriptions Disp Refills [...] 2024 3:29 PM documented in this encounter [facility] 01-27-2024 Telephone encounter Note Prescription [...] Gaviria LPN January 27, 2024 3:29 PM T [facility] 12-30-2023 Telephone encounter Note The following approved [...] 30 days. Authorizing Provider: MORENO OATES MD [facility] 12-30-2023 Miscellaneous Notes The following approved medication [...] for 30 days. Nurse called from the intermediate facility to request. Hoda Lewis December 29, 2023 4:56 PM documented in this encounter [facility] 12-30-2023 Telephone encounter Note Prescription [...] Gaviria LPN December 30, 2023 9:55 AM [facility] 12-30-2023 Miscellaneous Notes Prescription Refill [...] 2023 9:55 AM documented in this encounter [facility] 12-29-2023 Telephone encounter Note Charlie is calling MD charlene Platt Elizabeth Nurse from [facility] called to request this medication, not on current list: Disp Refills Start End diazePAM (VALIUM) 5 mg tablet 60 tablet 0 11/27/2023 12/27/2023 Sig: Take 1 tablet by mouth two times a day for 30 days. Sent to pharmacy as: diazePAM (VALIUM) 5 mg tablet Class: Normal Route: ORAL Order: [id number] E-Prescribing Status: Receipt confirmed by pharmacy (11/27/2023 2:31 PM EDT) Please send to [facility]. Patient has been identified by name and birthdate. Duration of symptoms: N/A Was an appointment scheduled: No Closing statement: Results or non-symptom based questions: Thank you for calling [facility], your call will be returned within the next business day. Hoda Lewis [facility] 12-29-2023 Miscellaneous Notes Charlie is calling MD charleen Platt Elizabeth, Nurse from [facility] called to request this medication, not on current list: Disp Refills Start End diazePAM (VALIUM) 5 mg tablet 60 tablet 0 11/27/2023 12/27/2023 Sig: Take 1 tablet by mouth two times a day for 30 days. Sent to pharmacy as: diazePAM (VALIUM) 5 mg tablet Class: Normal Route: ORAL Order: [id number] E-Prescribing Status: Receipt confirmed by pharmacy (11/27/2023 2:31 PM EDT) Please send to [facility]. Patient has been identified by name and birthdate. Duration of symptoms: N/A Was an appointment scheduled: No Closing statement: Results or non-symptom based questions: Thank you for calling [facility], your call will be returned within the next business day. Hoda Lewis documented in this encounter [facility] 12-29-2023 Telephone encounter Note Prescription [...] for 30 days. Nurse called from the intermediate facility to request. Hoda Lewis December 29, 2023 4:56 PM [facility] 11-27-2023 Telephone encounter Note Pt at [facility]. The following approved medication requests have been [...] 30 days. Authorizing Provider: MORENO OATES MD [facility] 11-27-2023 Miscellaneous Notes Pt at [facility]. The following approved medication requests have been [...] MORENO OATES MD documented in this encounter [facility] 10-28-2023 Telephone encounter Note [facility] patient. The following approved medication requests have [...] phone, fax) Pharm[facility] Information [facility] [address] [place] [address] Moreno Oates MD [facility] 10-28-2023 Miscellaneous Notes [facility] patient. The following approved medication requests have [...] phone, fax) Pharmacy Information [facility] Address [facility] [address] [place] [address] Moreno Oates MD Pharmacy verified in [facility] Patient has been identified by name [...] Fadumo Rahman LPN documented in this encounter [facility] 10-27-2023 Telephone encounter Note Pharmacy verified in [facility] Patient has been identified by name [...] Not applicable Please advise. Fadumo Rahman LPN [facility] 10-12-2023 Telephone encounter Note Received lab results from [facility]. Placed in provider's inbox for review. Route to MA scanning [facility] 10-12-2023 Miscellaneous Notes Received lab results from [facility]. Placed in provider's inbox for review. Route to MA scanning documented in this encounter [facility] 10-08-2023 Telephone encounter Note The [...] To back Authorizing Provider: MORENO OATES MD [facility] 10-08-2023 Miscellaneous Notes The following [...] Rx request, pended documented in this encounter [facility] 10-07-2023 Telephone encounter Note Rx request, pended [facility] 09-25-2023 Telephone encounter Note [facility] patient. The following approved medication requests have [...] MORENO OATES Pharmacy Information [facility] Address [facility] [place] [address] Moreno Oates MD [facility] 09-25-2023 Miscellaneous Notes [facility] patient. The following approved medication requests have [...] MORENO OATES Pharmacy Information Pharmacy Address [place] [address] Moreno Oates MD documented in this encounter [facility] 09-11-2023 Telephone encounter Note The following approved medication requests have been transmitted electronically. Requested Prescriptions Signed Prescriptions Disp Refills ondansetron (ZOFRAN) 8 mg tablet 90 tablet 5 Sig: Take 1 tablet by mouth every 8 hours as needed for nausea/vomiting. Authorizing Provider: MORENO OATES Pharmacy Information Pharmacy Address Telephone [facility] [address] Moreno Oates MD [facility] 09-11-2023 Miscellaneous Notes The following approved medication requests have been transmitted electronically. Requested Prescriptions Signed Prescriptions Disp Refills ondansetron (ZOFRAN) 8 mg tablet 90 tablet 5 Sig: Take 1 tablet by mouth every 8 hours as needed for nausea/vomiting. Authorizing Provider: MORENO OATES Pharmacy Information Pharmacy Address Telephone [facility] [address] Moreno Oates MD documented in this encounter [facility] 08-11-2023 Miscellaneous Notes Received lab results from [facility]. Placed in provider's inbox for review. Route to MA scanning documented in this encounter [facility] 07-31-2023 Miscellaneous Notes [facility] The following approved medication requests have been transmitted electronically. Requested Prescriptions Signed Prescriptions Disp Refills oxyCODONE-acetaminophen (PERCOCET) 5-325 mg tablet 120 tablet 0 Sig: Take 1 tablet by mouth every 6 hours for 30 days. Authorizing Provider: MORENO OATES MD documented in this encounter [facility] 07-30-2023 Miscellaneous Notes Pt at [facility]. Seen by Dr Oates in facility monthly [...] MORENO OATES MD documented in this encounter [facility] 05-11-2023 Miscellaneous Notes Received 05/11/2023 from [facility]. Placed in provider's inbox for review. Route to PR for scanning. documented in this encounter [facility] 04-29-2023 Miscellaneous Notes Pt at [facility], due for refills. The following approved medication [...] MORENO OATES MD documented in this encounter [facility] 04-13-2023 Miscellaneous Notes Received 04/13/2023 from [facility]. Placed in provider's inbox for review. Route to PR for scanning. documented in this encounter [facility] 04-07-2023 Miscellaneous Notes Relayed message to Tamar. She said she would check and patients supply. Tamar, nurse for this patient, returned call. Please call her back at [phone]. LM for nurse at [facility]. Let pharmacy know these Rx's were sent last week Moreno Oates MD Received order requests from [facility] for diazepam and oxycodone APAP. Placed in provider's inbox to review. documented in this encounter [facility] 03-30-2023 Miscellaneous Notes The following [...] MORENO OATES MD documented in this encounter [facility] 02-13-2023 Miscellaneous Notes Spoke to [...] as above. Please process accordingly. Lou Davis APRN.TUNNEL HEADING SUPERVISOR See below, per Yoly, nurse at the [...] my name is Yoly I'm calling from [facility] facility. Phone number is [phone]. Calling in regards to a Charlie Nguyen [...] Protocols used: Information Only Call - No [id number] documented in this encounter [facility] 02-12-2023 Miscellaneous Notes Received lab results from [facility]. Placed in provider's inbox for review. Route to MA scanning. documented in this encounter [facility] 02-12-2023 Miscellaneous Notes Spoke with Lovely at [facility]. Relayed message below. Verbalized understanding with no further questions or concerns. Yudi Pak Lovely, Nurse from [facility] the patient [facility] is calling back. Please call her again [phone]. Please call more than one time, she [...] Percocet. Moreno Oates MD [place] with [facility] calling today asking for stronger tylenol. Patient is requesting 1000 mg. Cheyenne is also updating that the patient is on percocet as well. Please return call if appropriate [phone] documented in this encounter [facility] 01-31-2023 Miscellaneous Notes The following [...] MORENO OATES MD documented in this encounter [facility] 01-31-2023 Miscellaneous Notes The following [...] needs Dr Oates's signature and faxed to [facility] pharmacy. documented in this encounter [facility] 01-26-2023 Miscellaneous Notes Received 01/26/2023 from [facility]. Placed in provider's inbox for review. Route to PR for scanning. documented in this encounter [facility] 01-13-2023 Miscellaneous Notes Received clarification request from [facility] pharmacy. Placed in provider's inbox for review. Route to PR fax documented in this encounter [facility] 01-12-2023 Miscellaneous Notes Received lab results from [facility]. Placed in provider's inbox for review. Route to PR scanning. documented in this encounter [facility] 01-01-2023 Miscellaneous Notes The following [...] urgent request for refills via fax from [facility]. Placed in provider's inbox for review. Route to PR e scribe [facility]. documented in this encounter [facility] 12-31-2022 Miscellaneous Notes Received 12/31/2022 from [facility]. Placed in provider's inbox for review. Route to PR for scanning documented in this encounter [facility] 12-29-[address] Oates placed call to the MD approving the orders recommended. Moreno Oates MD Please review and advise. Hey good afternoon my name is Zari Segovia nurse practitioner with [facility]. Phone number [phone]. I'm calling in regards to patient Charlie Reyes. Her date of is 1955. She is a resident at [facility]. Calling Charlie has a mildly low pulse [...] like you can return my call at [phone]. Thank you so much. Galindo madrid." Reason for Disposition [1] Follow-up call to recent contact AND [2] information only call, no triage required Protocols used: Information Only Call - No [id number] documented in this encounter [facility] 12-16-2022 Miscellaneous Notes Received consultation visit summary from [facility]. Placed in provider's inbox for review. Route to MA scanning. documented in this encounter [facility] 12-01-2022 Miscellaneous Notes Refills sent on 11/26. Vaughn Montes De Oca MD [facility] faxed PCP office in [place] requesting orders for patient's oxycodone/APAP and diazepam. PCP out of office - I faxed the orders over to covering providers in [place]. Can anyone sign the orders for patient's refills? documented in this encounter [facility] 11-21-2022 Miscellaneous Notes No change faxed to [facility]. documented in this encounter [facility] 11-17-2022 Emergency department Note Report called to SNF. Kelvin Grajeda RN 11/17/22 1400 [facility] 11-17-2022 Emergency department Note Report called [...] with Leg Swelling Pt brought in by [facility] for swelling in her L ankle [...] She is currently on Eliquis. Sent by [facility] via EMS to rule out DVT. [...] (methicillin resistant Staphylococcus aureus) MS (multiple sclerosis) ([facility]/HCC) (HCC) Schizoaffective disorder (CMS/HCC) ([facility]) Tobacco use SURGICAL HISTORY Past Surgical History: [...] Culture. Procedure Abnormality Status --------- ------ Complete Urinalysis[[id number]] Please view results for these tests on [...] 12:20:12 PM PATIENT REFERRED TO: Moreno Oates [address] [place], [place] [id number] Schedule an appointment as soon as possible [...] DO 11/17/22 1648 documented in this encounter [facility] 11-17-2022 Emergency department Note Physicians ETA 15 min Carlos Castano RN 11/17/22 1359 [facility] 11-17-2022 Emergency department Note Oxygen via [place] off since 1250 to see if able to tolerate RA. Kelvin Grajeda RN 11/17/22 1308 [facility] 11-17-2022 Physician Emergency department Note EMERGENCY DEPARTMENT ENCOUNTER Pt Name: Charlie Nguyen Birthdate 1955 Date of evaluation: 11/17/2022 ED Provider: Marc Goodman DO CHIEF COMPLAINT Chief Complaint Patient presents with Leg Swelling Pt brought in by [facility] for swelling in her L ankle [...] She is currently on Eliquis. Sent by [facility] via EMS to rule out DVT. [...] (gastroesophageal reflux disease) Headache Hypertension Ischemic colitis ([facility]) MRSA (methicillin resistant Staphylococcus aureus) MS (multiple sclerosis) ([facility]) ([facility]) Schizoaffective disorder ([facility]) ([facility]) Tobacco use SURGICAL HISTORY Past Surgical History: [...] Culture. Procedure Abnormality Status --------- ------ Complete Urinalysis[[id number]] Please view results for these tests on [...] 12:20:12 PM PATIENT REFERRED TO: Moreno Oates [address] [place], [place] [address] Schedule an appointment as soon as possible [...] Medicine Provider Marc Goodman DO 11/17/22 1648 [facility] 11-06-2022 Miscellaneous Notes Received 11/06/2022 from [facility] Placed in provider's inbox for review. Route to PR for faxing documented in this encounter [facility] 10-10-2022 Miscellaneous Notes Received Rx request from [facility] for meds she has had filled [...] Moreno Oates MD documented in this encounter [facility] 10-01-2022 Miscellaneous Notes Pt in [facility]. The following approved medication requests have been transmitted electronically. Requested Prescriptions Signed Prescriptions Disp Refills diazePAM (VALIUM) 5 mg tablet 60 tablet 0 Sig: Take 1 tablet by mouth twice daily for 30 days. Authorizing Provider: MORENO OATES MD documented in this encounter [facility] 09-24-2022 Miscellaneous Notes Seen in MD today. Having worse headaches. Will try increased dose of Lyrica The following approved medication requests have been transmitted electronically. Requested Prescriptions Signed Prescriptions Disp Refills pregabalin (LYRICA) 150 mg capsule 60 capsule 0 Sig: Take 1 capsule by mouth twice daily for 30 days. Authorizing Provider: MORENO OATES MD documented in this encounter [facility] 09-19-2022 Miscellaneous Notes Fax sent to inform. Request for refill too early. These were filled by [facility] on 08/27 and 08/29. Patient's request [...] Moreno Oates MD documented in this encounter [facility] 09-05-2022 Miscellaneous Notes Patient's request [...] example, phone, fax) These were filled by [facility]. On 08/27 and 08/29 respectively Moreno Oates MD documented in this encounter [facility] 08-29-2022 Miscellaneous Notes The following approved medication requests have been transmitted electronically. Requested Prescriptions Signed Prescriptions Disp Refills oxyCODONE-acetaminophen (PERCOCET) 5-325 mg tablet 120 tablet 0 Sig: Take 1 tablet by mouth every 6 hours for 30 days. Authorizing Provider: MORENO OATES Pharmacy Information Pharmacy Address Telephone [facility] [address] [place], [place] [id number] Escrptied to MD pharmacy Moreno Oates MD documented in this encounter [facility] 08-28-2022 Miscellaneous Notes Received lab results 08/28/22 from [facility]. Placed in provider's inbox for review. Route to MA scanning. documented in this encounter [facility] 08-11-2022 History of Present illness Narrative Images from the original note were not included. Ortho Knee Follow Up Note Narrative Referring Provider: Debbie [facility]ista [address] [facility] [address] PCP: Moreno Oates MD IMPRESSION/PLAN: 67 year [...] ambulate. She is a resident in a [facility]. She reports most of the [...] Dysuria Septic Arthritis of Knee, Right (Hcc) Status post op: BMI: There is no [...] Debbie Batista PA-C documented in this encounter [facility] 07-30-2022 Miscellaneous Notes Received Notice of rule out for pasrr further review from [place] [employer]. Placed in provider's inbox for review. Route to MA scanning. documented in this encounter [facility] 07-29-2022 Miscellaneous Notes The following [...] Provider: MORENO OATES MD Refill request from [facility] documented in this encounter [facility] 07-26-2022 Miscellaneous Notes [facility][phone] with confirmation of receipt. PDMP reviewed 1 month supply sent Faxed Received fax from [facility] Placed on Dr. Clemons's desk for completion When signed fax to [facility] [phone] Still waiting for fax from Yoly, spoke to her again and had her send to another fax machine Yoly from [facility] left message on RN line stating she faxed an order to PCP office asking for Percocet order. States she talked to Dr. Oates who advised he is out of town and to contact investigation manager physician for order. She is going to fax the form to [place] for the covering physician to review. Patient [...] needed for pain. JENN Boyle called from [facility]. Patient needs this script filled as she only has 2 doses left. Please call Tamar at [phone] for any questions. Thank you. documented in this encounter [facility] 07-22-2022 Miscellaneous Notes Pt admitted at [facility]. PDMP website checked and validated. All prescriptions [...] Moreno Oates MD Received refill request from [facility]. Refill pended. documented in this encounter [facility] 07-16-2022 Miscellaneous Notes Received lab results from [facility]. Placed in provider's inbox for review. Route to MA scanning. documented in this encounter [facility] 07-06-2022 History of Present illness Narrative Rx's phoned in over weekend for Lyrica and diazepam. Moreno Oates MD documented in this encounter [facility] 07-05-2022 Miscellaneous Notes Received pt update regarding being lowered to the floor (not a fall) from [facility]. Placed in provider's inbox for review. Route to MA scanning. documented in this encounter [facility] 06-25-2022 Miscellaneous Notes [facility] resident. The Rx was filled on 06/06. Sent approval for Rx's to be filled on 07/02 Received refill request from [facility]. Placed in provider's inbox for review. Route to MA fax documented in this encounter [facility] 06-18-2022 Miscellaneous Notes Received med orders from [facility]. Placed in provider's inbox for review. Route to PR fax documented in this encounter [facility] 06-12-2022 Note HNO ID: [id number] Author: BLAYNE Henderson Service: Radiology Author Type: [...] BLAYNE Henderson June 12, 2022 3:37 PM [facility] 06-12-2022 History of Present illness Narrative Radiology [...] 2022 3:37 PM documented in this encounter [facility] 05-22-2022 Miscellaneous Notes Received lab results from [facility]. Placed in provider's inbox for review. Route to MA scanning documented in this encounter [facility] 05-21-2022 History of Present illness Narrative Radiology Service Progress Note PATIENT NAME: Charlie Nguyen RADIOLOGY DEPARTMENT: General X-ray: Exam(s) Completed: Lower Extremity X-Ray(s): Knee, AP / Lat / Merchant Left PERIPHERAL IV DATA: Not applicable SIGNED BY: RT Kaylen(R) May 21, 2022 1:10 PM documented in this encounter [facility] 05-21-2022 History of Present illness Narrative xr documented in this encounter [facility] 05-13-2022 Miscellaneous Notes The following [...] time. Please send in a new script. [facility] patient Check iwith 300 unit nurse , why are they requesting refill now, it was filled for 30 days on 04/26? Moreno Oates MD documented in this encounter [facility] 03-24-2022 Miscellaneous Notes Received request for pregabalin from [facility]. Placed in provider's inbox for review. Route to ANA MARIA fax documented in this encounter [facility] 03-18-2022 Miscellaneous Notes [facility]. [facility] that the mammogram orders be placed as soon as possible, as there is availability tomorrow for the testing to be done. Orders signed by Carlos Mejia APRN. Faxed to [facility] Received Mammogram order from [facility]. Placed in provider's inbox for review. Route to A[facility] MAR[facility] fax documented in this encounter [facility] 03-17-2022 Miscellaneous Notes [facility] stated patient has upcoming appt with them. The need orders for bilateral diagnostic mammogram and unilateral US for left breast pain. Please fax to [phone] . documented in this encounter [facility] 03-11-2022 Miscellaneous Notes The following [...] MORENO OATES MD documented in this encounter [facility] 03-10-2022 Miscellaneous Notes Received lab results from [facility]. Placed in provider's inbox for review. Route to PR scanning. documented in this encounter [facility] 03-10-2022 Miscellaneous Notes Received pharmacy orders from [facility]. Placed in provider's inbox for review. Route to PR fax documented in this encounter [facility] 03-06-2022 Miscellaneous Notes Completed Request were sent with confirmation. ([phone]) [phone] Forms placed in Ma's file. Form was signed and completed and placed in outbox Please fax back Thanks Type of letter/form/fax request - refill Form received from [facility] pharmacy Placed on MD desk () for completion. Completed form needs to be faxed to [phone]. Route to PR when form completed for processing documented in this encounter [facility] 02-13-2022 Miscellaneous Notes Received request for assessment of continued Nystatin from [facility]. Placed in provider's inbox for review. Route to PR fax documented in this encounter [facility] 02-12-2022 Miscellaneous Notes Medication was refilled on 02/05/2022 Received refill request for diazepam 5mg tablets from [facility]. Faxed to covering provider pool. documented in this encounter [facility] 02-10-2022 Miscellaneous Notes Received labs from [facility]. Placed in provider's inbox for review. Route to MA scanning. documented in this encounter [facility] 02-05-2022 Miscellaneous Notes Received pharmacy orders from [facility]. Placed in provider's inbox for review. Route to PR fax documented in this encounter [facility] 01-07-2022 Miscellaneous Notes The following approved medication requests have been transmitted electronically. Requested Prescriptions Signed Prescriptions Disp Refills pregabalin (LYRICA) 100 mg capsule 60 capsule 0 Sig: Take 1 capsule by mouth twice daily for 30 days. Authorizing Provider: MORENO OATES MD documented in this encounter [facility] 12-30-2021 Miscellaneous Notes Received prescription request from [facility]. Placed in provider's inbox for review. Route to MA fax documented in this encounter [facility] 12-23-2021 Miscellaneous Notes Received pharmacy recommendation from [facility]. Placed in provider's inbox for review. Route to MA fax documented in this encounter [facility] 12-23-2021 Miscellaneous Notes Received request for oxycodone 5-325 from [facility] Placed in provider's inbox for review. Route to [place] fax documented in this encounter [facility] 12-09-2021 Miscellaneous Notes Received labs from [facility]. Placed in provider's inbox for review. Route to [place] scanning. documented in this encounter [facility] 12-03-2021 Miscellaneous Notes The following [...] No Authorizing Provider: MORENO OATES Pt in [facility]. She is seen monthly at facility Moreno Oates MD Last appointment: 12-12-19 Next appointment: na Pharmacy verified in [facility]. Refill(s) requested: Pending Prescriptions Disp Refills DIAZEPAM 5 MG TABLET 60 tablet 0 Sig: Take 1 tablet by mouth twice daily for 30 days. FABIOLA Class: C-IV LARISSA: No PREGABALIN 100 MG CAPSULE 60 capsule 0 Sig: Take 1 capsule by mouth twice daily for 30 days. FABIOLA Class: C-V LARISSA: No Order(s) pended. Please advise. Gabriela Castillo MA, EL TEACHER documented in this encounter [facility] 11-25-2021 Miscellaneous Notes Fax sent. Received orders for Lyrica for PCP review and sign off from [facility] to be faxed to [facility]. Placed in provider's inbox for review. Route to [place] fax documented in this encounter [facility] 11-21-2021 Miscellaneous Notes Received fax from [facility] that Pt c/o yeast infection. [facility] would like to know if any new orders are needed? Route to fax. documented in this encounter [facility] 11-19-2021 Miscellaneous Notes The following approved medication requests have been transmitted electronically. Signed Prescriptions Disp Refills oxyCODONE-acetaminophen (PERCOCET) 5-325 mg tablet 120 tablet 0 Sig: Take 1 tablet by mouth four times daily as needed for pain. FABIOLA Class: C-II LARISSA: No Authorizing Provider: MORENO OATES MD [facility] Tamar calling in regards to patients prescription: OxyCodone 5-325 mg tablet Pharmacy contacted them stating they only received a partial script and need a full script from provider. Pharmacy stated it was not signed and that things are missing from script. Tamar said to call pharmacy if any questions: Absolute documented in this encounter [facility] 11-19-2021 Miscellaneous Notes Received refill request from [facility]. Fax sent advising medication has been e-prescribed. documented in this encounter [facility] 11-18-2021 Miscellaneous Notes faxed Med refill request from [facility] of [place] for 4 tablets oxycodone 5-325 (pulled from starter box at [facility]). Placed in provider inbox for review. Route to fax. documented in this encounter [facility] 10-29-2021 Miscellaneous Notes The following approved medication requests have been transmitted electronically. Signed Prescriptions Disp Refills diazePAM (VALIUM) 5 mg tablet 60 tablet 0 Sig: Take 1 tablet by mouth twice daily for 30 days. FABIOLA Class: C-IV Authorizing Provider: MORENO OATES MD documented in this encounter [facility] 10-22-2021 Miscellaneous Notes Patient's request [...] accordingly. Moreno Oates MD Pharmacy verified in Epic [...] Fadumo Rahman LPN documented in this encounter [facility] 10-09-2021 Miscellaneous Notes Pt lives at [facility]. The following approved medication requests have been transmitted electronically. Signed Prescriptions Disp Refills diazePAM (VALIUM) 5 mg tablet 60 tablet 0 Sig: Take 1 tablet by mouth every 12 hours as needed for up to 30 days. FABIOLA Class: C-IV LARISSA: No Authorizing Provider: MORENO OATES Pharmacy Information Pharmacy Address Telephone [facility] [address] [place] [address] Moreno Oates MD documented in this encounter [facility] 10-08-2021 Miscellaneous Notes Received request for sign off for medication from [facility] pharmacy. Placed in provider's inbox for review. Route to [place] fax documented in this encounter [facility] 10-07-2021 Miscellaneous Notes Received labs from [facility]. Placed in provider's inbox for review. Route to [place] scanning. documented in this encounter [facility] 10-04-2021 Miscellaneous Notes [facility] pt. The following approved medication requests have been transmitted electronically. Pending Prescriptions Disp Refills PREGABALIN 100 MG CAPSULE 60 capsule 0 Sig: Take 1 capsule by mouth twice daily for 30 days. FABIOLA Class: C-V LARISSA: No Moreno Oates MD Pharmacy verified in [facility] Patient has been identified by name [...] Fadumo Rahman LPN documented in this encounter [facility] 09-27-2021 Miscellaneous Notes [facility] patient. documented in this encounter [facility] 08-27-2021 Miscellaneous Notes Addended by: SHAIMKA SILVEIRA on: 08/27/2021 01:58 PM Modules accepted: Orders Received 08/27/2021 from [facility]. Placed in provider's inbox for review. Route to [place] for faxing Order to be signed for Lyrica 100 mg BID documented in this encounter [facility] 08-26-2021 Miscellaneous Notes Pt at [facility], she's seen there monthly The following approved medication requests have been transmitted electronically. Signed Prescriptions Disp Refills diazePAM (VALIUM) 5 mg tablet 60 tablet 0 Sig: Take 1 tablet by mouth every 12 hours as needed for up to 30 days. FABIOLA Class: C-IV LARISSA: No Authorizing Provider: MORENO OATES MD Pharmacy verified in [facility] Patient has been identified by name [...] Shamika Silveira MA documented in this encounter [facility] 07-08-2021 Miscellaneous Notes Received 07/08/2021 from [facility] Placed in provider's inbox for review. Route to [place] for scanning and fax. documented in this encounter [facility] 01-15-2021 Hospital Discharge instructions Nehal Madden, - 01/15/2021 Please return to the ED for any fevers or shortness of breath. Otherwise resolved with your primary care physician as well as your orthopedic surgeon in the next few days. documented in this encounter [facility] Work Phone: 01-08-2021 Note HNO ID: [id number] Author: Jasen Ewing DO Service: Orthopaedic Surgery [...] ortho standpoint Please contact the orthopedic resident investigation manager with any questions or concerns. ACTIVE PROBLEM [...] (Hcc) Dysuria Septic Arthritis of Knee, Right ([facility]) Jasen Ewing DO 01/08/2021 7:50 AM Orthopedic Surgery Resident [id number] [facility] 01-07-2021 Note HNO ID: [id number] Author: Jasen Ewing DO Service: Orthopaedic Surgery [...] previously instructed Please contact the orthopedic resident investigation manager with any questions or concerns. ACTIVE PROBLEM [...] DO 01/07/2021 12:28 PM Orthopedic Surgery Resident [id number] [facility] 01-07-2021 Note HNO ID: [id number] Author: Birna Peterson RN Service: Care Management Author Type: Registered Nurse Type: Care Mgt Initial Assessment Filed: 01/07/2021 11:17 AM Note Text: CARE MANAGEMENT: ASSESSMENT AND DISCHARGE PLAN SERVICE DATE: January 07, 2021 SERVICE TIME: 11:00 AM PRIMARY CARE PHYSICIAN: Moreno Oates MD ADMISSION STATUS: Inpatient Needs Prior to Discharge: To Be Determined;Accepting Facility;Discharge Transportation;Discharge Prescriptions MEDICAL: [place] MEDICA[place] Patient/Television News Anchor Stated Goals: To have reduction in symptoms;Other [...] Current Advance Directive: Health Care Power of Jewelry Estimator;Living Will In Chart: Yes Up To Date [...] facility) Has the Patient Been in a [facility] Facility in the Past 30 days?: Yes Location and Dates: [facility] (dates unknown- skilled nursing resident) SOCIAL: Living Arrangements: Nursing Facility Facility Information: [facility] Financial Resources: Disabled Primary Contact: Extended Emergency Contact Information Primary Emergency Contact: Callum Nguyen Mobile Relation: Son Supportive Patient Contact:: Yes Contact Resources: Family;Other Family Name/Phone: Vicente Driscoll/daughter [phone] POA Name/Phone: Callum Nguyen/[phone] Caregiver AssessmentCaregiver is ready, willing and able to meet the patient's needs as recommended by the inter-professional team:: Other: See Comment (To be determined) Does the patient have an acute stroke diagnosis, or has the patient had a stroke during this admission?: No Patient's transition needs and plan for meeting these needs: patient states plan is to return to [facility] Patient's perception of need for this admission: right knee pain, fever Medication Adherance I am convinced of the importance of my prescription medication: 0 - Agree Completely I worry that my prescription medication will do more harm than good to me : 0 - Disagree Mostly I feel financially burdened by my odx-bv-weckxe expenses for my prescription medication:: 0 - Disagree Completely Risk Score: 0 Patient is categorized as: Low risk < 2 Are you interested in bedside delivery of your medications? No Is Patient Psychosocially Complex?: No ASSESSMENT AND PLAN: Medical Needs: Medical Needs: IV Antibiotics;Two or more chronic diseases;Fall risk or frequent falls Psychosocial Needs: Psychosocial Needs: None FREEDOM OF CHOICE EXPLAINED: [place] of Choice Given: Yes (patient states plan is to return to [facility]) Provider list within the patient's requested geographic area shared with the patient/family: No Quality and resource use metrics shared with the patient that are relevant to the patient's goals of care and treatment preferences:: No Reason: patient decines states plan is to return to [facility] POTENTIAL TRANSITION PLANS To Be Determined;[facility] Facility/Intermediate Care Facility AANDOX[facility] from [facility], for right knee pain AND fever. Patient states is roasterman resident at facility and plan is to return when medically cleared for discharge. PCP Dr. Moreno Oates. SIGNATURE: Brina Peterson RN PATIENT NAME: Charlie Nguyen DATE: January 07, 2021 MR (more content not included)... [facility] 01-07-2021 Note HNO ID: [id number] Author: Jasen Ewing DO Service: Orthopaedic Surgery Author Type: Resident Type: Plan of Care Filed: 01/07/2021 10:44 AM Note Text: Orthopedic Surgery Plan of Care Note Charlie Nguyen Ok for diet. No operative intervention today. Will discuss further management with staff. Continue IV antibiotics. Please contact the orthopedic resident investigation manager with any questions or concerns. Jasen Ewing DO 01/07/2021 10:43 AM Orthopedic Surgery Resident [id number] [facility] 01-07-2021 Note HNO ID: [id number] Author: Kristen Melton APRN.[facility] Service: General Internal Medicine Author Type: Nurse Practitioner Type: Progress Notes Filed: 01/07/2021 6:44 AM Note Text: Attestation signed by Milton Fernandez MD at 01/07/2021 2:32 PM I have reviewed the above note obtained and documented by the TELEVISION STATION MANAGER/PA. I have discussed the case and management [...] Discussed with Dr Fernandez SIGNATURE: Kristen Melton APRN.CNP DATE: January 07, 2021 TIME: 6:21 AM [facility] 12-26-2020 Note HNO ID: [id number] Author: Kimberli Israel RN Service: Care Management [...] Arrangements: Ambulance/[place] Transportation Agency and Phone #:: [facility] [phone] Date of Trip: 12/26/20 Time of Trip: 1829 Type of Service: BLS Non-emergency Is Patient Medicaid Pending?: No Discussion of financial coverage occurred with: (N/A) Yard Operator Location: [place] Destination: [facility] Financial Care Management Responsibility: None ADDITIONAL CONTACT RESOURCES: Discharge Information Row Name ED to Hosp-Admission (Current) from 12/19/2020 in [facility] Agency [facility] Needs Prior to Discharge: Ready for Discharge Transportation Arrangements: Ambulance/[place] Transportation Agency and Phone #:: [facility] [phone] Date of Trip: 12/26/20 Time of Trip: 1829 Type of Service: BLS Non-emergency Is Patient Medicaid Pending?: No Discussion of financial coverage occurred with: (N/A) Yard Operator Location: [place] Destination: [facility] Financial Care Management Responsibility: None Pt ready for d/c today. SIGNATURE: Kimberli Israel RN PATIENT NAME: Charlie Nguyen DATE: December 26, 2020 TIME: 4:48 PM PAGER/CONTACT #: Kimberli Israel [phone] or [phone] [facility] 12-26-2020 Note HNO ID: [id number] Author: Alexandria Reddy MD Service: Hospital Medicine Author Type: Physician Type: Progress Notes Filed: 12/26/2020 2:33 PM Note Text: DEPARTMENT OF HOSPITAL MEDICINE PROGRESS NOTE SERVICE DATE: 12/26/2020 SERVICE TIME: 2:31 PM Hospital Medicine/Primary Attending: Alexandria Reddy MD NIGHT AND WEEKEND COVERAGE: Patient admitted to [facility]. Page [phone] between 7 am and 5 pm for patient issues; from 5 p to 7 am, page the night hospitalist at pager [phone] Subjective INTERVAL HPI: Diarrhea improving Issues with [...] cap(s) (LYRICA) 100 mg ORAL BID - tethira-lriloqyms-heyhtne D3 500 mg(1,250mg) -200 unit 2 tablet [...] Inserted (PICC) Left Arm Through Introducer 4.0 Paraguayan 5 days Drain External Collection Device 12/21/20 0930 5 days DATA: Diagnostic tests reviewed for today's visit: Most recent labs Most recent imaging Assessment/Plan Problem List Joint infection (HCC) POA: Yes Acute deep vein thrombosis (DVT) of right lower extremity ([facility]) POA: Yes MS (multiple sclerosis) ([facility]) POA: Yes Essential hypertension POA: Yes Current smoker POA: Yes Chronic pain of right knee POA: Yes Seizure ([facility]) POA: Yes Dysuria POA: . HOSPITAL COURSE: [...] is after POD5 ? MS (multiple sclerosis) ([facility]) POA: Yes WC bound Urine and fecal incontinence LE parasthesia ? Essential hypertension POA: Yes Controlled - Continue Metoprolol; hold HCTZ? ? Current smoker POA: Yes - Nicotine patches ? Seizure ([facility]) POA: Yes - Continue Depakote ? Depressoin/Anxiety [...] 82012/25/20 1344 -- 12/19/202014 pneumatic compression stockings (ma,oh) 12/19/20 0900 activ (more content not included)... [facility] 12-25-2020 Note HNO ID: [id number] Author: Alexandria Reddy MD Service: Hospital Medicine Author Type: Physician Type: Progress Notes Filed: 12/25/2020 1:43 PM Note Text: DEPARTMENT OF HOSPITAL MEDICINE PROGRESS NOTE SERVICE DATE: 12/25/2020 SERVICE TIME: 1:35 PM Hospital Medicine/Primary Attending: Alexandria Reddy MD NIGHT AND WEEKEND COVERAGE: Patient admitted to [facility]. Page [phone] between 7 am and 5 pm for patient issues; from 5 p to 7 am, page the night hospitalist at pager [phone] Subjective INTERVAL HPI: Issues with hypotension earlier. [...] cap(s) (LYRICA) 100 mg ORAL BID - ptjqbqa-wwjywipsg-lwnbstn D3 500 mg(1,250mg) -200 unit 2 tablet [...] Inserted (PICC) Left Arm Through Introducer 4.0 [place]ayan 4 days Drain External Collection Device 12/21/20 0930 4 days DATA: Diagnostic tests reviewed for today's visit: Most recent labs Most recent imaging Assessment/Plan Problem List Joint infection (HCC) POA: Yes Acute deep vein thrombosis (DVT) of right lower extremity (HCC) POA: Yes MS (multiple sclerosis) ([facility]) POA: Yes Essential hypertension POA: Yes Current [...] is after POD5 ? MS (multiple sclerosis) ([facility]) POA: Yes WC bound Urine and fecal [...] Action Orde (more content not included)... [facility] 12-25-2020 Note HNO ID: [id number] Author: Sanjana Tarango MD Service: Infectious Disease [...] cap(s) (LYRICA) 100 mg ORAL BID - fgtipie-vphbqjtgs-nxnpynp D3 500 mg(1,250mg) -200 unit 2 tablet [...] 2g q12 hours for 6 weeks through 9/1/21 3. Needs CBC w/ diff, CMP, vancomycin trough, ESR, CRP every Thursday faxed to Sanjana Tarango at [phone] Okay for d/c from ID standpoint Sanjana Tarango MD [employer] [facility] Contact#: [phone] [facility] 12-24-2020 Note HNO ID: [id number] Author: Alexandria Reddy MD Service: Hospital Medicine Author Type: Physician Type: Progress Notes Filed: 12/24/2020 2:59 PM Note Text: DEPARTMENT OF HOSPITAL MEDICINE PROGRESS NOTE SERVICE DATE: 12/24/2020 SERVICE TIME: 2:55 PM Hospital Medicine/Primary Attending: Alexandria Reddy MD NIGHT AND WEEKEND COVERAGE: Patient admitted to -1. Page [phone] between 7 am and 5 pm for patient issues; from 5 p to 7 am, page the night hospitalist at pager [phone] Subjective INTERVAL HPI: Complaining that the nurses [...] cap(s) (LYRICA) 100 mg ORAL BID - comyjlm-flercgrfj-stewcna D3 500 mg(1,250mg) -200 unit 2 tablet [...] Inserted (PICC) Left Arm Through Introducer 4.0 Paraguayan 3 days Drain External Collection Device 12/21/20 [...] resume eliquis tomorrow. ? MS (multiple sclerosis) ([facility]) POA: Yes WC bound Urine and fecal [...] 0906 12/19/20 (more content not included)... [facility] 12-24-2020 Note HNO ID: [id number] Author: Sanjana Tarango MD Service: Infectious Disease [...] cap(s) (LYRICA) 100 mg ORAL BID - zlttnpa-xefrdfcag-hhiojxe D3 500 mg(1,250mg) -200 unit 2 tablet [...] AM Sanjana Tarango MD [employer] Contact#: [phone] [facility] 12-23-2020 Note HNO ID: [id number] Author: Alexandria Reddy MD Service: Hospital Medicine Author Type: Physician Type: Progress Notes Filed: 12/23/2020 2:21 PM Note Text: DEPARTMENT OF HOSPITAL MEDICINE PROGRESS NOTE SERVICE DATE: 12/23/2020 SERVICE TIME: 2:20 PM Hospital Medicine/Primary Attending: Alexandria Reddy MD NIGHT AND WEEKEND COVERAGE: Patient admitted to [facility]. Page [phone] between 7 am and 5 pm for patient issues; from 5 p to 7 am, page the night hospitalist at pager [phone] Subjective INTERVAL HPI: Patient continues to complain [...] cap(s) (LYRICA) 100 mg ORAL BID - duudxpv-uxssbvibt-tfgjmnw D3 500 mg(1,250mg) -200 unit 2 tablet [...] Inserted (PICC) Left Arm Through Introducer 4.0 [place]aguayan 2 days Drain External Collection Device 12/21/20 0930 2 days DATA: Diagnostic tests reviewed for today's visit: Most recent labs Most recent imaging Assessment/Plan Problem List Joint infection (HCC) POA: Yes Acute deep vein thrombosis (DVT) of right lower extremity (HCC) POA: Yes MS (multiple sclerosis) ([facility]) POA: Yes Essential hypertension POA: Yes Current smoker POA: Yes Chronic pain of right knee POA: Yes Seizure ([facility]) POA: Yes Dysuria POA: . HOSPITAL COURSE: [...] lonvenox for now ? MS (multiple sclerosis) (HCC) POA: Yes [...] 1025 12/19/202004 -- 12/19/202014 pneumatic compression stockings (ma,oh) 12/19/20 0900 activity - mobilize patient (more content not included)... [facility] 12-22-2020 Note HNO ID: [id number] Author: Alexandria Reddy MD Service: Hospital Medicine Author Type: Physician Type: Progress Notes Filed: 12/22/2020 3:25 PM Note Text: DEPARTMENT OF HOSPITAL MEDICINE PROGRESS NOTE SERVICE DATE: 12/22/2020 SERVICE TIME: 3:21 PM Hospital Medicine/Primary Attending: Alexandria Reddy MD NIGHT AND WEEKEND COVERAGE: Patient admitted to [facility]. Page [phone] between 7 am and 5 pm for patient issues; from 5 p to 7 am, page the night hospitalist at pager [phone] Subjective INTERVAL HPI: Patient seem drowsy but [...] cap(s) (LYRICA) 100 mg ORAL BID - yhgmcvv-qdwkanmnt-bbewpbj D3 500 mg(1,250mg) -200 unit 2 tablet [...] Inserted (PICC) Left Arm Through Introducer 4.0 [place]aguayan 1 day Drain External Collection Device 12/21/20 0930 1 day DATA: Diagnostic tests reviewed for today's visit: Most recent labs Most recent imaging Assessment/Plan Problem List Joint infection (HCC) POA: Yes Acute deep vein thrombosis (DVT) of right lower extremity (HCC) POA: Yes MS (multiple sclerosis) ([facility]) POA: Yes Essential hypertension POA: Yes Current smoker POA: Yes Chronic pain of right knee POA: Yes Seizure ([facility]) POA: Yes Dysuria POA: . HOSPITAL COURSE: [...] lonvenox for now ? MS (multiple sclerosis) (HCC) POA: Yes WC bound Urine and fecal incontinence LE parasthesia - stable; CTM ? Essential hypertension POA: Yes Controlled - Continue Metoprolol; hold HCTZ? ? Current smoker POA: Yes - Nicotine patches ? Seizure ([facility]) POA: Yes - Continue Depakote ? Depressoin/Anxiety - c/w paxil and seroquil Medication and Non-Pharmacologic VTE Prophylaxis/Anticoagulants Anticoagulant AND Antiplatelet Medications (From admission, onward) Start Dose Route Frequency Last Action Ordered Stop 12/20/20 0900 enoxaparin 40 mg injection (LOVENOX) (Surgical Risk Categories) 40 mg SUBCUTANEOUS EVERY 24 HOURS Given, 12/22 93212/19/202004 -- 12/19/202014 pneumatic compression stockings (ma,mn) 12/19/20 0900 activity - mobilize patient (ma,mn) VTE Prophylaxis: VTE prop (more content not included)... [facility] 12-22-2020 Note HNO ID: [id number] Author: Jasen Ewing DO Service: Orthopaedic Surgery [...] sign off Please contact the orthopedic resident investigation manager with any questions or concerns. ACTIVE PROBLEM [...] Joint Infection (Hcc) Dysuria Jasen Ewing DO 12/22/2020 7:38 AM Orthopedic Surgery Resident [id number] [facility] 12-22-2020 Note HNO ID: [id number] Author: Interface Note Service: ? Author Type: ? Type: Progress Notes Filed: 12/22/2020 2:51 AM Note Text: Epic Scheduled Downtime: 12/22/2020 1:01:00 AM to 12/22/2020 2:33:00 AM [facility] 12-21-2020 Note HNO ID: [id number] Author: Maricel Levy MD Service: Hospital Medicine Author Type: Physician Type: Progress Notes Filed: 12/21/2020 4:16 PM Note Text: DEPARTMENT OF HOSPITAL MEDICINE PROGRESS NOTE SERVICE DATE: December 21, 2020 SERVICE TIME: 10:42 AM Hospital Medicine/Primary Attending: Maricel Levy MD NIGHT AND WEEKEND COVERAGE: NIGHT AND WEEKEND COVERAGE: [facility] COVERAGE: Patient admitted to Hospitalist Service From 0700 - 1630, please contact pager listed in Epic for patient issues. From 1630 - 07, please contact the Night Hospitalist on pager [phone] for patient issues. Subjective INTERVAL HPI: No [...] Inserted (PICC) Left Arm Through Introducer 4.0 Paraguayan <1 day Drain External Collection Device 12/21/20 [...] after POD5 (today POD2) MS (multiple sclerosis) ([facility]) POA: Yes WC bound Urine and fecal incontinence LE parasthesia - stable; CTM Essential hypertension POA: Yes Controlled - Continue Metoprolol; hold HCTZ Current smoker POA: Yes - Nicotine patches Seizure ([facility]) POA: Yes - Continue Depakote Depressoin/Anxiety - [...] 21, 2020 TIME: 4:16 PM PAGER/CONTACT #: [phone] [facility] 12-21-2020 Note HNO ID: [id number] Author: Chaitanya Champagne RN Service: PICC Team Author Type: Registered Nurse Type: Procedures Filed: 12/21/2020 12:55 PM Note Text: PICC NURSE INSERTION NOTE DATE OF PROCEDURE: December 21, 2020 TIME OF PROCEDURE: 1120 ORDERING PHYSICIAN: Dr. Sanjana Tarango INFORMED CONSENT: Obtained per hospital policy. INDICATION FOR LINE PLACEMENT: COPAT CONDITION OF LINE PLACEMENT: Sterile PRIMARY PROCEDURALIST: Chaitanya Champagne R.N. [place] - P 3 ARMAMENT/ORDNANCE IMA TECHNICIAN: Kimberly Headley R.N. PRE-PROCEDURE REVIEW ALLERGIES Allergen Reactions - Nsaids (Non-Steroid* GI Upset - Gabapentin GI Upset - Macrobid [Nitrofura* Hives - Tramadol Contraindication-Medical Surgical Drug interaction with amitriptyline - told not to take due to increased seizure risk - [place] [Hydrocodone-* GI Upset Didn't do anything for [...] Champagne RN CATHETER PLACEMENT Brand: BARD Lot: [id number] Number of Lumens: 1 Type of PICC: Power Injectable PICC Lumen Size: 4 [place]ayan PLACEMENT TECHNIQUE Lidocaine: Yes, Lidocaine 1% Volume [...] patient, Report provided to Ali bedside nurse. Rheems limb alert applied The [facility] Central Line Insertion checklist, attached to the Central Line-Associated Bloodstream Infection Prevention Policy, was utilized during this procedure. QUESTIONS or PROBLEMS: [facility] radiology PICC Nurse SIGNATURE: Chaitanya Champagne RN PATIENT NAME: Charlie Nguyen DATE: December 21, 2020 TIME: 12:47 PM PA (more content not included)... [facility] 12-21-2020 Note HNO ID: [id number] Author: Sandra Cruz RN Service: Care Management [...] ID recs Thursday. Plan to return to [facility] on dc, updated notes sent to facility. Will require updated COVID prior to discharge. SIGNATURE: Sandra Cruz RN PATIENT NAME: Charlie Nguyen DATE: December 21, 2020 TIME: 10:50 AM PAGER/CONTACT #: [phone] [facility] 12-21-2020 Note HNO ID: [id number] Author: Jasen Ewing DO Service: Orthopaedic Surgery [...] needs facility Please contact the orthopedic resident investigation manager with any questions or concerns. 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[facility]) Delirium Chronic Pain of Right Knee Hypotension History of Pulmonary Embolism Septic Arthritis (Hcc) Urinary Tract Infection Hypoxia Seizure ([facility]) Obesity, Class I, Bmi 30-34.9 Infection of Prosthetic Right Knee Joint ([facility]) Joint Infection ([facility]) Dysuria Jasen Ewing DO 12/21/2020 9:25 AM Orthopedic Surgery Resident [id number] [facility] 12-21-2020 Note HNO ID: [id number] Author: Sanjana Tarango MD Service: Infectious Disease [...] cap(s) (LYRICA) 100 mg ORAL BID - lbgqryc-fmzizsubn-tjjflha D3 500 mg(1,250mg) -200 unit 2 tablet [...] concerns. Sanjana Tarango MD [facility] Contact#: [phone] [facility] 12-20-2020 Note HNO ID: [id number] Author: Maricel Levy MD Service: Hospital Medicine Author Type: Physician Type: Progress Notes Filed: 12/20/2020 4:55 PM Note Text: DEPARTMENT OF HOSPITAL MEDICINE PROGRESS NOTE SERVICE DATE: December 20, 2020 SERVICE TIME: 3:42 PM Hospital Medicine/Primary Attending: Maricel Levy MD NIGHT AND WEEKEND COVERAGE: NIGHT AND WEEKEND COVERAGE: [facility] COVERAGE: Patient admitted to Hospitalist Service From [phone], please contact pager listed in Epic for patient issues. From [phone], please contact the Night Hospitalist on pager [phone] for patient issues. Subjective INTERVAL HPI: No [...] culture - Pain mx MS (multiple sclerosis) ([facility]) POA: Yes WC bound Urine and fecal [...] mg SUBCUTANEOUS EVERY 24 HOURS Given, 12/21 0714 12/19/202004 -- VTE prophylaxis appropriate. 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 ACTIVE PROBLEM [...] Prosthetic Right Knee Joint (Hcc) Joint Infection ([facility]) Dysuria Jasen Ewing DO 12/20/2020 8:37 AM Orthopedic Surgery Resident [id number] [facility] 12-19-2020 Note HNO ID: [id number] Author: Aubrey Jensen MD Service: Hospital Medicine Author Type: Physician Type: Plan of Care Filed: 12/19/2020 9:32 PM Note Text: Patient reports of taking percocet POA>. Reviewed PDMP. Ordered percocet overnight. Primary team to reassess in am. [facility] 12-19-2020 Note HNO ID: [id number] Author: Tenisha Ly APRN.LICENSED EMBALMER Service: Anesthesiology Author Type: Nurse Engineer Technical Staff Type: Anesthesia Procedure Notes Filed: 12/19/2020 3:49 PM Note Text: ANESTHESIOLOGY PROCEDURE NOTE PIV General Information Patient Location: OR Staffing LICENSED EMBALMER: Tenisha Ly APRN.LICENSED EMBALMER Preparation Sterility Preparation: hand hygiene performed prior to procedure, surgical cap used, mask used, skin prep agent completely dried prior to procedure Site Prep: alcohol Procedure Details Indication: need for IV access Needle Size/Type: 18 gauge angiocath Orientation: Left Location: Forearm Imaging Guidance Used: No SIGNATURE: Tenisha Ly APRN.LICENSED EMBALMER PATIENT NAME: Charlie Nguyen DATE: December 19, 2020 TIME: 3:49 PM CSN: [id number] [facility] 12-19-2020 Note HNO ID: [id number] Author: Tenisha Ly APRN.CRNA Service: Anesthesiology Author Type: Nurse Engineer Technical Staff Type: Anesthesia Procedure Notes Filed: 12/19/2020 3:49 PM Note Text: ANESTHESIOLOGY PROCEDURE NOTE Airway General Information Procedure Start Time/Medication Administration: 12/19/2020 3:40 PM Patient location during procedure: OR Patient identity confirmed: arm band Staffing LICENSED EMBALMER: Tenisha Ly APRN.LICENSED EMBALMER Indications and Patient Condition Preoxygenated: yes Difficult [...] 1 Airway not difficult SIGNATURE: Tenisha Ly APRN.LICENSED EMBALMER PATIENT NAME: Charlie Nguyen DATE: December 19, 2020 TIME: 3:48 PM CSN: [id number] [facility] 12-19-2020 Note HNO ID: [id number] Author: Radha Mcpherson MD Service: Anesthesiology Author Type: Anesthesiologist Type: Anesthesia Procedure Notes Filed: 12/19/2020 2:33 PM Note Text: ANESTHESIOLOGY PROCEDURE NOTE Peripheral Nerve Block General Information Procedure Start Time/Medication Administration: 12/19/2020 2:00 PM Procedure End time: 12/19/2020 2:03 PM Patient location during procedure: pre-op Timeout Performed Pre-procedure: timeout performed Consent Obtained: Yes Patient identity confirmed: arm band, 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 cps team lead Reason for block: post-op pain management/at surgeon's [...] December 19, 2020 TIME: 2:32 PM CSN: [id number] [facility] 12-19-2020 Note HNO ID: [id number] Author: Senait Girard RN Service: Nursing Author Type: Registered Nurse Type: Nursing Progress Note Filed: 12/19/2020 2:04 PM Note Text: NO sedation used except local Patient tolerated procedure very well [facility] 11-26-2017 History of Past i llness [...] Overview: Added automatically from request for surgery [id number] Acute pain of right knee 06/25/2017 018 Overview: Added automatically from request for surgery [id number] Patellar dislocation, right, initial encounter 1 06/20/2016 04/21/2017 Status post total knee replacement using cement, right 04/16/2017 04/21/2017 Overview: Added automatically from request for surgery [id number] Acute pain of right knee 04/16/2017 017 Overview: Added automatically from request for surgery [id number] SUMMARY 04/03/2017 04/17/2017 Overview: Admit date: 04/03/2017 Reason for Admission/Observation: Unable to function Presentation: Patient is a 61-year-old female with PMH of [place], osteoarthritis, MRSA and herniated disc of the [...] of this encounter (statuses as of 08/26/2021) [facility] History of Past illness Narrative* [...] Overview: Added automatically from request for surgery [id number] Acute pain of right knee 06/25/2017 018 Overview: Added automatically from request for surgery [id number] Patellar dislocation, right, initial encounter 1 06/20/2016 04/21/2017 Status post total knee replacement using cement, right 04/16/2017 04/21/2017 Overview: Added automatically from request for surgery [id number] Acute pain of right knee 04/16/2017 017 Overview: Added automatically from request for surgery [id number] SUMMARY 04/03/2017 04/17/2017 Overview: Admit date: 04/03/2017 Reason for Admission/Observation: Unable to function Presentation: Patient is a 61-year-old female with PMH of [place], osteoarthritis, MRSA and herniated disc of the [...] of this encounter (statuses as of 08/27/2021) [facility] History of Past illness Narrative* [...] Overview: Added automatically from request for surgery [id number] Acute pain of right knee 06/25/2017 018 Overview: Added automatically from request for surgery [id number] Patellar dislocation, right, initial encounter 1 06/20/2016 04/21/2017 Status post total knee replacement using cement, right 04/16/2017 04/21/2017 Overview: Added automatically from request for surgery [id number] Acute pain of right knee 04/16/2017 017 Overview: Added automatically from request for surgery [id number] SUMMARY 04/03/2017 04/17/2017 Overview: Admit date: 04/03/2017 Reason for Admission/Observation: Unable to function Presentation: Patient is a 61-year-old female with PMH of [place], osteoarthritis, MRSA and herniated disc of the [...] of the right knee today by Dr. aVlle and orthopedics, but they would not do [...] of this encounter (statuses as of 08/27/2021) [facility] History of Past illness Narrative* [...] Overview: Added automatically from request for surgery [id number] Acute pain of right knee 06/25/2017 018 Overview: Added automatically from request for surgery [id number] Patellar dislocation, right, initial encounter 1 06/20/2016 04/21/2017 Status post total knee replacement using cement, right 04/16/2017 04/21/2017 Overview: Added automatically from request for surgery [id number] Acute pain of right knee 04/16/2017 017 Overview: Added automatically from request for surgery [id number] SUMMARY 04/03/2017 04/17/2017 Overview: Admit date: 04/03/2017 Reason for Admission/Observation: Unable to function Presentation: Patient is a 61-year-old female with PMH of [place], osteoarthritis, MRSA and herniated disc of the [...] of this encounter (statuses as of 09/27/2021) [facility] History of Past illness Narrative* [...] Overview: Added automatically from request for surgery [id number] Acute pain of right knee 06/25/2017 018 Overview: Added automatically from request for surgery [id number] Patellar dislocation, right, initial encounter 1 06/20/2016 04/21/2017 Status post total knee replacement using cement, right 04/16/2017 04/21/2017 Overview: Added automatically from request for surgery [id number] Acute pain of right knee 04/16/2017 017 Overview: Added automatically from request for surgery [id number] SUMMARY 04/03/2017 04/17/2017 Overview: Admit date: 04/03/2017 Reason for Admission/Observation: Unable to function Presentation: Patient is a 61-year-old female with PMH of [place], osteoarthritis, MRSA and herniated disc of the [...] of this encounter (statuses as of 10/04/2021) [facility] History of Past illness Narrative* [...] Overview: Added automatically from request for surgery [id number] Acute pain of right knee 06/25/2017 018 Overview: Added automatically from request for surgery [id number] Patellar dislocation, right, initial encounter 1 06/20/2016 04/21/2017 Status post total knee replacement using cement, right 04/16/2017 04/21/2017 Overview: Added automatically from request for surgery [id number] Acute pain of right knee 04/16/2017 017 Overview: Added automatically from request for surgery [id number] SUMMARY 04/03/2017 04/17/2017 Overview: Admit date: 04/03/2017 Reason for Admission/Observation: Unable to function Presentation: Patient is a 61-year-old female with PMH of [place], osteoarthritis, MRSA and herniated disc of the [...] of minimal help. Hospital course: Consultants: Elieser Valel Needed for Discharge: Disposition: documented as of this encounter (statuses as of 10/07/2021) [facility] History of Past illness Narrative* [...] Overview: Added automatically from request for surgery [id number] Acute pain of right knee 06/25/2017 018 Overview: Added automatically from request for surgery [id number] Patellar dislocation, right, initial encounter 1 06/20/2016 04/21/2017 Status post total knee replacement using cement, right 04/16/2017 04/21/2017 Overview: Added automatically from request for surgery [id number] Acute pain of right knee 04/16/2017 017 Overview: Added automatically from request for surgery [id number] SUMMARY 04/03/2017 04/17/2017 Overview: Admit date: 04/03/2017 Reason for Admission/Observation: Unable to function Presentation: Patient is a 61-year-old female with PMH of [place], osteoarthritis, MRSA and herniated disc of the [...] of this encounter (statuses as of 10/08/2021) [facility] of Past illness Narrative* [...] Overview: Added automatically from request for surgery [id number] Acute pain of right knee 06/25/2017 018 Overview: Added automatically from request for surgery [id number] Patellar dislocation, right, initial encounter 1 06/20/2016 04/21/2017 Status post total knee replacement using cement, right 04/16/2017 04/21/2017 Overview: Added automatically from request for surgery [id number] Acute pain of right knee 04/16/2017 017 Overview: Added automatically from request for surgery [id number] SUMMARY 04/03/2017 04/17/2017 Overview: Admit date: 04/03/2017 Reason for Admission/Observation: Unable to function Presentation: Patient is a 61-year-old female with PMH of [place], osteoarthritis, MRSA and herniated disc of the [...] of this encounter (statuses as of 10/14/2021) [facility] of [facility] illness Narrative* [...] Overview: Added automatically from request for surgery [id number] Acute pain of right knee 06/25/2017 018 Overview: Added automatically from request for surgery [id number] Patellar dislocation, right, initial encounter 1 06/20/2016 04/21/2017 Status post total knee replacement using cement, right 04/16/2017 04/21/2017 Overview: Added automatically from request for surgery [id number] Acute pain of right knee 04/16/2017 017 Overview: Added automatically from request for surgery [id number] SUMMARY 04/03/2017 04/17/2017 Overview: Admit date: 04/03/2017 Reason for Admission/Observation: Unable to function Presentation: Patient is a 61-year-old female with PMH of [place], osteoarthritis, MRSA and herniated disc of the [...] of this encounter (statuses as of 10/22/2021) [facility] of [facility] illness Narrative* [...] Overview: Added automatically from request for surgery [id number] Acute pain of right knee 06/25/2017 018 Overview: Added automatically from request for surgery [id number] Patellar dislocation, right, initial encounter 1 06/20/2016 04/21/2017 Status post total knee replacement using cement, right 04/16/2017 04/21/2017 Overview: Added automatically from request for surgery [id number] Acute pain of right knee 04/16/2017 017 Overview: Added automatically from request for surgery [id number] SUMMARY 04/03/2017 04/17/2017 Overview: Admit date: 04/03/2017 Reason for Admission/Observation: Unable to function Presentation: Patient is a 61-year-old female with PMH of [place], osteoarthritis, MRSA and herniated disc of the [...] of this encounter (statuses as of 10/29/2021) [facility] of [facility] illness Narrative* [...] Overview: Added automatically from request for surgery [id number] Acute pain of right knee 06/25/2017 018 Overview: Added automatically from request for surgery [id number] Patellar dislocation, right, initial encounter 1 06/20/2016 04/21/2017 Status post total knee replacement using cement, right 04/16/2017 04/21/2017 Overview: Added automatically from request for surgery [id number] Acute pain of right knee 04/16/2017 017 Overview: Added automatically from request for surgery [id number] SUMMARY 04/03/2017 04/17/2017 Overview: Admit date: 04/03/2017 Reason for Admission/Observation: Unable to function Presentation: Patient is a 61-year-old female with PMH of [place], osteoarthritis, MRSA and herniated disc of the [...] of this encounter (statuses as of 11/18/2021) [facility] of [facility] illness Narrative* [...] Overview: Added automatically from request for surgery [id number] Acute pain of right knee 06/25/2017 018 Overview: Added automatically from request for surgery [id number] Patellar dislocation, right, initial encounter 1 06/20/2016 04/21/2017 Status post total knee replacement using cement, right 04/16/2017 04/21/2017 Overview: Added automatically from request for surgery [id number] Acute pain of right knee 04/16/2017 017 Overview: Added automatically from request for surgery [id number] SUMMARY 04/03/2017 04/17/2017 Overview: Admit date: 04/03/2017 Reason for Admission/Observation: Unable to function Presentation: Patient is a 61-year-old female with PMH of [place], osteoarthritis, MRSA and herniated disc of the [...] of this encounter (statuses as of 11/19/2021) [facility] of [facility] illness Narrative* [...] Overview: Added automatically from request for surgery [id number] Acute pain of right knee 06/25/2017 018 Overview: Added automatically from request for surgery [id number] Patellar dislocation, right, initial encounter 1 06/20/2016 04/21/2017 Status post total knee replacement using cement, right 04/16/2017 04/21/2017 Overview: Added automatically from request for surgery [id number] Acute pain of right knee 04/16/2017 017 Overview: Added automatically from request for surgery [id number] SUMMARY 04/03/2017 04/17/2017 Overview: Admit date: 04/03/2017 Reason for Admission/Observation: Unable to function Presentation: Patient is a 61-year-old female with PMH of [place], osteoarthritis, MRSA and herniated disc of the [...] of this encounter (statuses as of 11/20/2021) [facility] of [facility] illness Narrative* [...] Overview: Added automatically from request for surgery [id number] Acute pain of right knee 06/25/2017 018 Overview: Added automatically from request for surgery [id number] Patellar dislocation, right, initial encounter 1 06/20/2016 04/21/2017 Status post total knee replacement using cement, right 04/16/2017 04/21/2017 Overview: Added automatically from request for surgery [id number] Acute pain of right knee 04/16/2017 017 Overview: Added automatically from request for surgery [id number] SUMMARY 04/03/2017 04/17/2017 Overview: Admit date: 04/03/2017 Reason for Admission/Observation: Unable to function Presentation: Patient is a 61-year-old female with PMH of [place], osteoarthritis, MRSA and herniated disc of the [...] of this encounter (statuses as of 11/21/2021) [facility] of [facility] illness Narrative* [...] Overview: Added automatically from request for surgery [id number] Acute pain of right knee 06/25/2017 018 Overview: Added automatically from request for surgery [id number] Patellar dislocation, right, initial encounter 1 06/20/2016 04/21/2017 Status post total knee replacement using cement, right 04/16/2017 04/21/2017 Overview: Added automatically from request for surgery [id number] Acute pain of right knee 04/16/2017 017 Overview: Added automatically from request for surgery [id number] SUMMARY 04/03/2017 04/17/2017 Overview: Admit date: 04/03/2017 Reason for Admission/Observation: Unable to function Presentation: Patient is a 61-year-old female with PMH of [place], osteoarthritis, MRSA and herniated disc of the [...] of this encounter (statuses as of 11/25/2021) [facility] of [facility] Narrative* [...] Overview: Added automatically from request for surgery [id number] Acute pain of right knee 06/25/2017 018 Overview: Added automatically from request for surgery [id number] Patellar dislocation, right, initial encounter 1 06/20/2016 04/21/2017 Status post total knee replacement using cement, right 04/16/2017 04/21/2017 Overview: Added automatically from request for surgery [id number] Acute pain of right knee 04/16/2017 017 Overview: Added automatically from request for surgery [id number] SUMMARY 04/03/2017 04/17/2017 Overview: Admit date: 04/03/2017 Reason for Admission/Observation: Unable to function Presentation: Patient is a 61-year-old female with PMH of [place], osteoarthritis, MRSA and herniated disc of the [...] of this encounter (statuses as of 12/03/2021) [facility] of [facility] Narrative* [...] Overview: Added automatically from request for surgery [id number] Acute pain of right knee 06/25/2017 018 Overview: Added automatically from request for surgery [id number] Patellar dislocation, right, initial encounter 1 06/20/2016 04/21/2017 Status post total knee replacement using cement, right 04/16/2017 04/21/2017 Overview: Added automatically from request for surgery [id number] Acute pain of right knee 04/16/2017 017 Overview: Added automatically from request for surgery [id number] SUMMARY 04/03/2017 04/17/2017 Overview: Admit date: 04/03/2017 Reason for Admission/Observation: Unable to function Presentation: Patient is a 61-year-old female with PMH of [place], osteoarthritis, MRSA and herniated disc of the [...] of this encounter (statuses as of 12/09/2021) [facility] of [facility] Narrative* [...] Overview: Added automatically from request for surgery [id number] Acute pain of right knee 06/25/2017 018 Overview: Added automatically from request for surgery [id number] Patellar dislocation, right, initial encounter 1 06/20/2016 04/21/2017 Status post total knee replacement using cement, right 04/16/2017 04/21/2017 Overview: Added automatically from request for surgery [id number] Acute pain of right knee 04/16/2017 017 Overview: Added automatically from request for surgery [id number] SUMMARY 04/03/2017 04/17/2017 Overview: Admit date: 04/03/2017 Reason for Admission/Observation: Unable to function Presentation: Patient is a 61-year-old female with PMH of [place], osteoarthritis, MRSA and herniated disc of the [...] of this encounter (statuses as of 12/23/2021) [facility] of [facility] illness Narrative* [...] Overview: Added automatically from request for surgery [id number] Acute pain of right knee 06/25/2017 018 Overview: Added automatically from request for surgery [id number] Patellar dislocation, right, initial encounter 1 06/20/2016 04/21/2017 Status post total knee replacement using cement, right 04/16/2017 04/21/2017 Overview: Added automatically from request for surgery [id number] Acute pain of right knee 04/16/2017 017 Overview: Added automatically from request for surgery [id number] SUMMARY 04/03/2017 04/17/2017 Overview: Admit date: 04/03/2017 Reason for Admission/Observation: Unable to function Presentation: Patient is a 61-year-old female with PMH of [place], osteoarthritis, MRSA and herniated disc of the [...] of this encounter (statuses as of 12/30/2021) [facility] of [facility] illness Narrative* [...] Overview: Added automatically from request for surgery [id number] Acute pain of right knee 06/25/2017 018 Overview: Added automatically from request for surgery [id number] Patellar dislocation, right, initial encounter 1 06/20/2016 04/21/2017 Status post total knee replacement using cement, right 04/16/2017 04/21/2017 Overview: Added automatically from request for surgery [id number] Acute pain of right knee 04/16/2017 017 Overview: Added automatically from request for surgery [id number] SUMMARY 04/03/2017 04/17/2017 Overview: Admit date: 04/03/2017 Reason for Admission/Observation: Unable to function Presentation: Patient is a 61-year-old female with PMH of [place], osteoarthritis, MRSA and herniated disc of the [...] of this encounter (statuses as of 01/07/2022) [facility] of [facility] illness Narrative* [...] Overview: Added automatically from request for surgery [id number] Acute pain of right knee 06/25/2017 018 Overview: Added automatically from request for surgery [id number] Patellar dislocation, right, initial encounter 1 06/20/2016 04/21/2017 Status post total knee replacement using cement, right 04/16/2017 04/21/2017 Overview: Added automatically from request for surgery [id number] Acute pain of right knee 04/16/2017 017 Overview: Added automatically from request for surgery [id number] SUMMARY 04/03/2017 04/17/2017 Overview: Admit date: 04/03/2017 Reason for Admission/Observation: Unable to function Presentation: Patient is a 61-year-old female with PMH of [place], osteoarthritis, MRSA and herniated disc of the [...] of this encounter (statuses as of 02/05/2022) [facility] History of Past illness Narrative* [...] Overview: Added automatically from request for surgery [id number] Acute pain of right knee 06/25/2017 018 Overview: Added automatically from request for surgery [id number] Patellar dislocation, right, initial encounter 1 06/20/2016 04/21/2017 Status post total knee replacement using cement, right 04/16/2017 04/21/2017 Overview: Added automatically from request for surgery [id number] Acute pain of right knee 04/16/2017 017 Overview: Added automatically from request for surgery [id number] SUMMARY 04/03/2017 04/17/2017 Overview: Admit date: 04/03/2017 Reason for Admission/Observation: Unable to function Presentation: Patient is a 61-year-old female with PMH of [place], osteoarthritis, MRSA and herniated disc of the [...] of this encounter (statuses as of 02/10/2022) [facility] History of Past illness Narrative* [...] Overview: Added automatically from request for surgery [id number] Acute pain of right knee 06/25/2017 018 Overview: Added automatically from request for surgery [id number] Patellar dislocation, right, initial encounter 1 06/20/2016 04/21/2017 Status post total knee replacement using cement, right 04/16/2017 04/21/2017 Overview: Added automatically from request for surgery [id number] Acute pain of right knee 04/16/2017 017 Overview: Added automatically from request for surgery [id number] SUMMARY 04/03/2017 04/17/2017 Overview: Admit date: 04/03/2017 Reason for Admission/Observation: Unable to function Presentation: Patient is a 61-year-old female with PMH of [place], osteoarthritis, MRSA and herniated disc of the [...] of this encounter (statuses as of 02/12/2022) [facility] History of Past illness Narrative* [...] Overview: Added automatically from request for surgery [id number] Acute pain of right knee 06/25/2017 018 Overview: Added automatically from request for surgery [id number] Patellar dislocation, right, initial encounter 1 06/20/2016 04/21/2017 Status post total knee replacement using cement, right 04/16/2017 04/21/2017 Overview: Added automatically from request for surgery [id number] Acute pain of right knee 04/16/2017 017 Overview: Added automatically from request for surgery [id number] SUMMARY 04/03/2017 04/17/2017 Overview: Admit date: 04/03/2017 Reason for Admission/Observation: Unable to function Presentation: Patient is a 61-year-old female with PMH of [place], osteoarthritis, MRSA and herniated disc of the [...] of this encounter (statuses as of 02/13/2022) [facility] History of Past illness Narrative* [...] Overview: Added automatically from request for surgery [id number] Acute pain of right knee 06/25/2017 018 Overview: Added automatically from request for surgery [id number] Patellar dislocation, right, initial encounter 1 06/20/2016 04/21/2017 Status post total knee replacement using cement, right 04/16/2017 04/21/2017 Overview: Added automatically from request for surgery [id number] Acute pain of right knee 04/16/2017 017 Overview: Added automatically from request for surgery [id number] SUMMARY 04/03/2017 04/17/2017 Overview: Admit date: 04/03/2017 Reason for Admission/Observation: Unable to function Presentation: Patient is a 61-year-old female with PMH of [place], osteoarthritis, MRSA and herniated disc of the [...] of this encounter (statuses as of 03/06/2022) [facility] History of Past illness Narrative* [...] Overview: Added automatically from request for surgery [id number] Acute pain of right knee 06/25/2017 018 Overview: Added automatically from request for surgery [id number] Patellar dislocation, right, initial encounter 1 06/20/2016 04/21/2017 Status post total knee replacement using cement, right 04/16/2017 04/21/2017 Overview: Added automatically from request for surgery [id number] Acute pain of right knee 04/16/2017 017 Overview: Added automatically from request for surgery [id number] SUMMARY 04/03/2017 04/17/2017 Overview: Admit date: 04/03/2017 Reason for Admission/Observation: Unable to function Presentation: Patient is a 61-year-old female with PMH of [place], osteoarthritis, MRSA and herniated disc of the [...] of this encounter (statuses as of 03/10/2022) [facility] History of Past illness Narrative* [...] Overview: Added automatically from request for surgery [id number] Acute pain of right knee 06/25/2017 018 Overview: Added automatically from request for surgery [id number] Patellar dislocation, right, initial encounter 1 06/20/2016 04/21/2017 Status post total knee replacement using cement, right 04/16/2017 04/21/2017 Overview: Added automatically from request for surgery [id number] Acute pain of right knee 04/16/2017 017 Overview: Added automatically from request for surgery [id number] SUMMARY 04/03/2017 04/17/2017 Overview: Admit date: 04/03/2017 Reason for Admission/Observation: Unable to function Presentation: Patient is a 61-year-old female with PMH of [place], osteoarthritis, MRSA and herniated disc of the [...] of this encounter (statuses as of 03/12/2022) [facility] History of Past illness Narrative* [...] Overview: Added automatically from request for surgery [id number] Acute pain of right knee 06/25/2017 018 Overview: Added automatically from request for surgery [id number] Patellar dislocation, right, initial encounter 1 06/20/2016 04/21/2017 Status post total knee replacement using cement, right 04/16/2017 04/21/2017 Overview: Added automatically from request for surgery [id number] Acute pain of right knee 04/16/2017 017 Overview: Added automatically from request for surgery [id number] SUMMARY 04/03/2017 04/17/2017 Overview: Admit date: 04/03/2017 Reason for Admission/Observation: Unable to function Presentation: Patient is a 61-year-old female with PMH of [place], osteoarthritis, MRSA and herniated disc of the [...] of this encounter (statuses as of 03/17/2022) [facility] History of Past illness Narrative* [...] Overview: Added automatically from request for surgery [id number] Acute pain of right knee 06/25/2017 018 Overview: Added automatically from request for surgery [id number] Patellar dislocation, right, initial encounter 1 06/20/2016 04/21/2017 Status post total knee replacement using cement, right 04/16/2017 04/21/2017 Overview: Added automatically from request for surgery [id number] Acute pain of right knee 04/16/2017 017 Overview: Added automatically from request for surgery [id number] SUMMARY 04/03/2017 04/17/2017 Overview: Admit date: 04/03/2017 Reason for Admission/Observation: Unable to function Presentation: Patient is a 61-year-old female with PMH of [place], osteoarthritis, MRSA and herniated disc of the [...] of this encounter (statuses as of 03/18/2022) [facility] History of Past illness Narrative* [...] Overview: Added automatically from request for surgery [id number] Acute pain of right knee 06/25/2017 018 Overview: Added automatically from request for surgery [id number] Patellar dislocation, right, initial encounter 1 06/20/2016 04/21/2017 Status post total knee replacement using cement, right 04/16/2017 04/21/2017 Overview: Added automatically from request for surgery [id number] Acute pain of right knee 04/16/2017 017 Overview: Added automatically from request for surgery [id number] SUMMARY 04/03/2017 04/17/2017 Overview: Admit date: 04/03/2017 Reason for Admission/Observation: Unable to function Presentation: Patient is a 61-year-old female with PMH of [place], osteoarthritis, MRSA and herniated disc of the [...] of this encounter (statuses as of 03/24/2022) [facility] History of Past illness Narrative* [...] Overview: Added automatically from request for surgery [id number] Acute pain of right knee 06/25/2017 018 Overview: Added automatically from request for surgery [id number] Patellar dislocation, right, initial encounter 1 06/20/2016 04/21/2017 Status post total knee replacement using cement, right 04/16/2017 04/21/2017 Overview: Added automatically from request for surgery [id number] Acute pain of right knee 04/16/2017 017 Overview: Added automatically from request for surgery [id number] SUMMARY 04/03/2017 04/17/2017 Overview: Admit date: 04/03/2017 Reason for Admission/Observation: Unable to function Presentation: Patient is a 61-year-old female with PMH of [place], osteoarthritis, MRSA and herniated disc of the [...] of this encounter (statuses as of 05/13/2022) [facility] History of Past illness Narrative* [...] Overview: Added automatically from request for surgery [id number] Acute pain of right knee 06/25/2017 018 Overview: Added automatically from request for surgery [id number] Patellar dislocation, right, initial encounter 1 06/20/2016 04/21/2017 Status post total knee replacement using cement, right 04/16/2017 04/21/2017 Overview: Added automatically from request for surgery [id number] Acute pain of right knee 04/16/2017 017 Overview: Added automatically from request for surgery [id number] SUMMARY 04/03/2017 04/17/2017 Overview: Admit date: 04/03/2017 Reason for Admission/Observation: Unable to function Presentation: Patient is a 61-year-old female with PMH of [place], osteoarthritis, MRSA and herniated disc of the [...] of this encounter (statuses as of 05/21/2022) [facility] History of Past illness Narrative* [...] Overview: Added automatically from request for surgery [id number] Acute pain of right knee 06/25/2017 018 Overview: Added automatically from request for surgery [id number] Patellar dislocation, right, initial encounter 1 06/20/2016 04/21/2017 Status post total knee replacement using cement, right 04/16/2017 04/21/2017 Overview: Added automatically from request for surgery [id number] Acute pain of right knee 04/16/2017 017 Overview: Added automatically from request for surgery [id number] SUMMARY 04/03/2017 04/17/2017 Overview: Admit date: 04/03/2017 Reason for Admission/Observation: Unable to function Presentation: Patient is a 61-year-old female with PMH of [place], osteoarthritis, MRSA and herniated disc of the [...] of this encounter (statuses as of 05/23/2022) [facility] History of Past illness Narrative* [...] Overview: Added automatically from request for surgery [id number] Acute pain of right knee 06/25/2017 018 Overview: Added automatically from request for surgery [id number] Patellar dislocation, right, initial encounter 1 06/20/2016 04/21/2017 Status post total knee replacement using cement, right 04/16/2017 04/21/2017 Overview: Added automatically from request for surgery [id number] Acute pain of right knee 04/16/2017 017 Overview: Added automatically from request for surgery [id number] SUMMARY 04/03/2017 04/17/2017 Overview: Admit date: 04/03/2017 Reason for Admission/Observation: Unable to function Presentation: Patient is a 61-year-old female with PMH of [place], osteoarthritis, MRSA and herniated disc of the [...] of this encounter (statuses as of 06/13/2022) [facility] History of Past illness Narrative* [...] Overview: Added automatically from request for surgery [id number] Acute pain of right knee 06/25/2017 018 Overview: Added automatically from request for surgery [id number] Patellar dislocation, right, initial encounter 1 06/20/2016 04/21/2017 Status post total knee replacement using cement, right 04/16/2017 04/21/2017 Overview: Added automatically from request for surgery [id number] Acute pain of right knee 04/16/2017 017 Overview: Added automatically from request for surgery [id number] SUMMARY 04/03/2017 04/17/2017 Overview: Admit date: 04/03/2017 Reason for Admission/Observation: Unable to function Presentation: Patient is a 61-year-old female with PMH of [place], osteoarthritis, MRSA and herniated disc of the [...] of this encounter (statuses as of 06/18/2022) [facility] History of Past illness Narrative* [...] Overview: Added automatically from request for surgery [id number] Acute pain of right knee 06/25/2017 018 Overview: Added automatically from request for surgery [id number] Patellar dislocation, right, initial encounter 1 06/20/2016 04/21/2017 Status post total knee replacement using cement, right 04/16/2017 04/21/2017 Overview: Added automatically from request for surgery [id number] Acute pain of right knee 04/16/2017 017 Overview: Added automatically from request for surgery [id number] SUMMARY 04/03/2017 04/17/2017 Overview: Admit date: 04/03/2017 Reason for Admission/Observation: Unable to function Presentation: Patient is a 61-year-old female with PMH of [place], osteoarthritis, MRSA and herniated disc of the [...] of this encounter (statuses as of 06/25/2022) [facility] History of Past illness Narrative* [...] Overview: Added automatically from request for surgery [id number] Acute pain of right knee 06/25/2017 018 Overview: Added automatically from request for surgery [id number] Patellar dislocation, right, initial encounter 1 06/20/2016 04/21/2017 Status post total knee replacement using cement, right 04/16/2017 04/21/2017 Overview: Added automatically from request for surgery [id number] Acute pain of right knee 04/16/2017 017 Overview: Added automatically from request for surgery [id number] SUMMARY 04/03/2017 04/17/2017 Overview: Admit date: 04/03/2017 Reason for Admission/Observation: Unable to function Presentation: Patient is a 61-year-old female with PMH of [place], osteoarthritis, MRSA and herniated disc of the [...] of this encounter (statuses as of 07/05/2022) [facility] History of Past illness Narrative* [...] Overview: Added automatically from request for surgery [id number] Acute pain of right knee 06/25/2017 018 Overview: Added automatically from request for surgery [id number] Patellar dislocation, right, initial encounter 1 06/20/2016 04/21/2017 Status post total knee replacement using cement, right 04/16/2017 04/21/2017 Overview: Added automatically from request for surgery [id number] Acute pain of right knee 04/16/2017 017 Overview: Added automatically from request for surgery [id number] SUMMARY 04/03/2017 04/17/2017 Overview: Admit date: 04/03/2017 Reason for Admission/Observation: Unable to function Presentation: Patient is a 61-year-old female with PMH of [place], osteoarthritis, MRSA and herniated disc of the [...] of this encounter (statuses as of 07/09/2022) [facility] History of Past illness Narrative* [...] Overview: Added automatically from request for surgery [id number] Acute pain of right knee 06/25/2017 018 Overview: Added automatically from request for surgery [id number] Patellar dislocation, right, initial encounter 1 06/20/2016 04/21/2017 Status post total knee replacement using cement, right 04/16/2017 04/21/2017 Overview: Added automatically from request for surgery [id number] Acute pain of right knee 04/16/2017 017 Overview: Added automatically from request for surgery [id number] SUMMARY 04/03/2017 04/17/2017 Overview: Admit date: 04/03/2017 Reason for Admission/Observation: Unable to function Presentation: Patient is a 61-year-old female with PMH of [place], osteoarthritis, MRSA and herniated disc of the [...] of this encounter (statuses as of 07/16/2022) [facility] History of Past illness Narrative* [...] Overview: Added automatically from request for surgery [id number] Acute pain of right knee 06/25/2017 018 Overview: Added automatically from request for surgery [id number] Patellar dislocation, right, initial encounter 1 06/20/2016 04/21/2017 Status post total knee replacement using cement, right 04/16/2017 04/21/2017 Overview: Added automatically from request for surgery [id number] Acute pain of right knee 04/16/2017 017 Overview: Added automatically from request for surgery [id number] SUMMARY 04/03/2017 04/17/2017 Overview: Admit date: 04/03/2017 Reason for Admission/Observation: Unable to function Presentation: Patient is a 61-year-old female with PMH of [place], osteoarthritis, MRSA and herniated disc of the [...] of this encounter (statuses as of 07/22/2022) [facility] History of Past illness Narrative* [...] Overview: Added automatically from request for surgery [id number] Acute pain of right knee 06/25/2017 018 Overview: Added automatically from request for surgery [id number] Patellar dislocation, right, initial encounter 1 06/20/2016 04/21/2017 Status post total knee replacement using cement, right 04/16/2017 04/21/2017 Overview: Added automatically from request for surgery [id number] Acute pain of right knee 04/16/2017 017 Overview: Added automatically from request for surgery [id number] SUMMARY 04/03/2017 04/17/2017 Overview: Admit date: 04/03/2017 Reason for Admission/Observation: Unable to function Presentation: Patient is a 61-year-old female with PMH of [place], osteoarthritis, MRSA and herniated disc of the [...] of this encounter (statuses as of 07/28/2022) [facility] History of Past illness Narrative* [...] Overview: Added automatically from request for surgery [id number] Acute pain of right knee 06/25/2017 018 Overview: Added automatically from request for surgery [id number] Patellar dislocation, right, initial encounter 1 06/20/2016 04/21/2017 Status post total knee replacement using cement, right 04/16/2017 04/21/2017 Overview: Added automatically from request for surgery [id number] Acute pain of right knee 04/16/2017 017 Overview: Added automatically from request for surgery [id number] SUMMARY 04/03/2017 04/17/2017 Overview: Admit date: 04/03/2017 Reason for Admission/Observation: Unable to function Presentation: Patient is a 61-year-old female with PMH of [place], osteoarthritis, MRSA and herniated disc of the [...] of this encounter (statuses as of 07/29/2022) [facility] of Past illness Narrative* [...] Overview: Added automatically from request for surgery [id number] Acute pain of right knee 06/25/2017 018 Overview: Added automatically from request for surgery [id number] Patellar dislocation, right, initial encounter 1 06/20/2016 04/21/2017 Status post total knee replacement using cement, right 04/16/2017 04/21/2017 Overview: Added automatically from request for surgery [id number] Acute pain of right knee 04/16/2017 017 Overview: Added automatically from request for surgery [id number] SUMMARY 04/03/2017 04/17/2017 Overview: Admit date: 04/03/2017 Reason for Admission/Observation: Unable to function Presentation: Patient is a 61-year-old female with PMH of [place], osteoarthritis, MRSA and herniated disc of the [...] of this encounter (statuses as of 07/30/2022) [facility] of [facility] illness Narrative* [...] Overview: Added automatically from request for surgery [id number] Acute pain of right knee 06/25/2017 018 Overview: Added automatically from request for surgery [id number] Patellar dislocation, right, initial encounter 1 06/20/2016 04/21/2017 Status post total knee replacement using cement, right 04/16/2017 04/21/2017 Overview: Added automatically from request for surgery [id number] Acute pain of right knee 04/16/2017 017 Overview: Added automatically from request for surgery [id number] SUMMARY 04/03/2017 04/17/2017 Overview: Admit date: 04/03/2017 Reason for Admission/Observation: Unable to function Presentation: Patient is a 61-year-old female with PMH of [place], osteoarthritis, MRSA and herniated disc of the [...] of this encounter (statuses as of 08/12/2022) [facility] of [facility] illness Narrative* [...] Overview: Added automatically from request for surgery [id number] Acute pain of right knee 06/25/2017 018 Overview: Added automatically from request for surgery [id number] Patellar dislocation, right, initial encounter 1 06/20/2016 04/21/2017 Status post total knee replacement using cement, right 04/16/2017 04/21/2017 Overview: Added automatically from request for surgery [id number] Acute pain of right knee 04/16/2017 017 Overview: Added automatically from request for surgery [id number] SUMMARY 04/03/2017 04/17/2017 Overview: Admit date: 04/03/2017 Reason for Admission/Observation: Unable to function Presentation: Patient is a 61-year-old female with PMH of [place], osteoarthritis, MRSA and herniated disc of the [...] of this encounter (statuses as of 08/28/2022) [facility] of [facility] illness Narrative* [...] Overview: Added automatically from request for surgery [id number] Acute pain of right knee 06/25/2017 018 Overview: Added automatically from request for surgery [id number] Patellar dislocation, right, initial encounter 1 06/20/2016 04/21/2017 Status post total knee replacement using cement, right 04/16/2017 04/21/2017 Overview: Added automatically from request for surgery [id number] Acute pain of right knee 04/16/2017 017 Overview: Added automatically from request for surgery [id number] SUMMARY 04/03/2017 04/17/2017 Overview: Admit date: 04/03/2017 Reason for Admission/Observation: Unable to function Presentation: Patient is a 61-year-old female with PMH of [place], osteoarthritis, MRSA and herniated disc of the [...] of this encounter (statuses as of 08/30/2022) [facility] of [facility] illness Narrative* [...] Overview: Added automatically from request for surgery [id number] Acute pain of right knee 06/25/2017 018 Overview: Added automatically from request for surgery [id number] Patellar dislocation, right, initial encounter 1 06/20/2016 04/21/2017 Status post total knee replacement using cement, right 04/16/2017 04/21/2017 Overview: Added automatically from request for surgery [id number] Acute pain of right knee 04/16/2017 017 Overview: Added automatically from request for surgery [id number] SUMMARY 04/03/2017 04/17/2017 Overview: Admit date: 04/03/2017 Reason for Admission/Observation: Unable to function Presentation: Patient is a 61-year-old female with PMH of [place], osteoarthritis, MRSA and herniated disc of the [...] of this encounter (statuses as of 09/08/2022) [facility] of [facility] Narrative* [...] Overview: Added automatically from request for surgery [id number] Acute pain of right knee 06/25/2017 018 Overview: Added automatically from request for surgery [id number] Patellar dislocation, right, initial encounter 1 06/20/2016 04/21/2017 Status post total knee replacement using cement, right 04/16/2017 04/21/2017 Overview: Added automatically from request for surgery [id number] Acute pain of right knee 04/16/2017 017 Overview: Added automatically from request for surgery [id number] SUMMARY 04/03/2017 04/17/2017 Overview: Admit date: 04/03/2017 Reason for Admission/Observation: Unable to function Presentation: Patient is a 61-year-old female with PMH of [place], osteoarthritis, MRSA and herniated disc of the [...] of this encounter (statuses as of 09/20/2022) [facility] of [facility] illness Narrative* [...] Overview: Added automatically from request for surgery [id number] Acute pain of right knee 06/25/2017 018 Overview: Added automatically from request for surgery [id number] Patellar dislocation, right, initial encounter 1 06/20/2016 04/21/2017 Status post total knee replacement using cement, right 04/16/2017 04/21/2017 Overview: Added automatically from request for surgery [id number] Acute pain of right knee 04/16/2017 017 Overview: Added automatically from request for surgery [id number] SUMMARY 04/03/2017 04/17/2017 Overview: Admit date: 04/03/2017 Reason for Admission/Observation: Unable to function Presentation: Patient is a 61-year-old female with PMH of [place], osteoarthritis, MRSA and herniated disc of the [...] of this encounter (statuses as of 09/24/2022) [facility] Narrative* [...] Overview: Added automatically from request for surgery [id number] Acute pain of right knee 06/25/2017 018 Overview: Added automatically from request for surgery [id number] Patellar dislocation, right, initial encounter 1 06/20/2016 04/21/2017 Status post total knee replacement using cement, right 04/16/2017 04/21/2017 Overview: Added automatically from request for surgery [id number] Acute pain of right knee 04/16/2017 017 Overview: Added automatically from request for surgery [id number] SUMMARY 04/03/2017 04/17/2017 Overview: Admit date: 04/03/2017 Reason for Admission/Observation: Unable to function Presentation: Patient is a 61-year-old female with PMH of [place], osteoarthritis, MRSA and herniated disc of the [...] of this encounter (statuses as of 10/01/2022) [facility] History of Past illness Narrative* [...] Overview: Added automatically from request for surgery [id number] Acute pain of right knee 06/25/2017 018 Overview: Added automatically from request for surgery [id number] Patellar dislocation, right, initial encounter 1 06/20/2016 04/21/2017 Status post total knee replacement using cement, right 04/16/2017 04/21/2017 Overview: Added automatically from request for surgery [id number] Acute pain of right knee 04/16/2017 017 Overview: Added automatically from request for surgery [id number] SUMMARY 04/03/2017 04/17/2017 Overview: Admit date: 04/03/2017 Reason for Admission/Observation: Unable to function Presentation: Patient is a 61-year-old female with PMH of [place], osteoarthritis, MRSA and herniated disc of the [...] of this encounter (statuses as of 10/07/2022) [facility] History of Past illness Narrative* [...] Overview: Added automatically from request for surgery [id number] Acute pain of right knee 06/25/2017 018 Overview: Added automatically from request for surgery [id number] Patellar dislocation, right, initial encounter 1 06/20/2016 04/21/2017 Status post total knee replacement using cement, right 04/16/2017 04/21/2017 Overview: Added automatically from request for surgery [id number] Acute pain of right knee 04/16/2017 017 Overview: Added automatically from request for surgery [id number] SUMMARY 04/03/2017 04/17/2017 Overview: Admit date: 04/03/2017 Reason for Admission/Observation: Unable to function Presentation: Patient is a 61-year-old female with PMH of [place], osteoarthritis, MRSA and herniated disc of the [...] of this encounter (statuses as of 10/16/2022) [facility] History of Past illness Narrative* [...] Overview: Added automatically from request for surgery [id number] Acute pain of right knee 06/25/2017 018 Overview: Added automatically from request for surgery [id number] Patellar dislocation, right, initial encounter 1 06/20/2016 04/21/2017 Status post total knee replacement using cement, right 04/16/2017 04/21/2017 Overview: Added automatically from request for surgery [id number] Acute pain of right knee 04/16/2017 017 Overview: Added automatically from request for surgery [id number] SUMMARY 04/03/2017 04/17/2017 Overview: Admit date: 04/03/2017 Reason for Admission/Observation: Unable to function Presentation: Patient is a 61-year-old female with PMH of [place], osteoarthritis, MRSA and herniated disc of the [...] of this encounter (statuses as of 11/06/2022) [facility] History of Past illness Narrative* [...] Overview: Added automatically from request for surgery [id number] Acute pain of right knee 06/25/2017 018 Overview: Added automatically from request for surgery [id number] Patellar dislocation, right, initial encounter 1 06/20/2016 04/21/2017 Status post total knee replacement using cement, right 04/16/2017 04/21/2017 Overview: Added automatically from request for surgery [id number] Acute pain of right knee 04/16/2017 017 Overview: Added automatically from request for surgery [id number] SUMMARY 04/03/2017 04/17/2017 Overview: Admit date: 04/03/2017 Reason for Admission/Observation: Unable to function Presentation: Patient is a 61-year-old female with PMH of [place], osteoarthritis, MRSA and herniated disc of the [...] of this encounter (statuses as of 11/17/2022) [facility] History of Past illness Narrative* [...] Overview: Added automatically from request for surgery [id number] Acute pain of right knee 06/25/2017 018 Overview: Added automatically from request for surgery [id number] Patellar dislocation, right, initial encounter 1 06/20/2016 04/21/2017 Status post total knee replacement using cement, right 04/16/2017 04/21/2017 Overview: Added automatically from request for surgery [id number] Acute pain of right knee 04/16/2017 017 Overview: Added automatically from request for surgery [id number] SUMMARY 04/03/2017 04/17/2017 Overview: Admit date: 04/03/2017 Reason for Admission/Observation: Unable to function Presentation: Patient is a 61-year-old female with PMH of [place], osteoarthritis, MRSA and herniated disc of the [...] of this encounter (statuses as of 11/21/2022) [facility] History of Past illness Narrative* [...] Overview: Added automatically from request for surgery [id number] Acute pain of right knee 06/25/2017 018 Overview: Added automatically from request for surgery [id number] Patellar dislocation, right, initial encounter 1 06/20/2016 04/21/2017 Status post total knee replacement using cement, right 04/16/2017 04/21/2017 Overview: Added automatically from request for surgery [id number] Acute pain of right knee 04/16/2017 017 Overview: Added automatically from request for surgery [id number] SUMMARY 04/03/2017 04/17/2017 Overview: Admit date: 04/03/2017 Reason for Admission/Observation: Unable to function Presentation: Patient is a 61-year-old female with PMH of [place], osteoarthritis, MRSA and herniated disc of the [...] of this encounter (statuses as of 12/04/2022) [facility] History of Past illness Narrative* [...] Overview: Added automatically from request for surgery [id number] Acute pain of right knee 06/25/201711/2017 Overview: Added automatically from request for surgery [id number] Patellar dislocation, right, initial encounter 04/20/2017 04/21/2017 Status post total knee repla cement using cement, right 04/16/2017 04/21/2017 Overview: Added automatically from request for surgery [id number] Acute pain of right knee 04/16/2017 Overview: Added automatically from request for surgery [id number] SUMMARY 04/03/2017 04/17/2017 Overview: Admit date: 04/03/2017 Reason for Admission/Observation: Unable to function Presentation: Patient is a 61-year-old female with PMH of [place], osteoarthritis, MRSA and herniated disc of the [...] of this encounter (statuses as of 12/16/2022) [facility] History of Past illness Narrative* [...] Overview: Added automatically from request for surgery [id number] Acute pain of right knee 06/25/201711/2017 Overview: Added automatically from request for surgery [id number] Patellar dislocation, right, initial encounter 04/20/2017 04/21/2017 Status post total knee repla cement using cement, right 04/16/2017 04/21/2017 Overview: Added automatically from request for surgery [id number] Acute pain of right knee 04/16/2017 Overview: Added automatically from request for surgery [id number] SUMMARY 04/03/2017 04/17/2017 Overview: Admit date: 04/03/2017 Reason for Admission/Observation: Unable to function Presentation: Patient is a 61-year-old female with PMH of [place], osteoarthritis, MRSA and herniated disc of the [...] of this encounter (statuses as of 12/30/2022) [facility] History of Past illness Narrative* [...] Overview: Added automatically from request for surgery [id number] Acute pain of right knee 06/25/201711/2017 Overview: Added automatically from request for surgery [id number] Patellar dislocation, right, initial encounter 04/20/2017 04/21/2017 Status post total knee repla cement using cement, right 04/16/2017 04/21/2017 Overview: Added automatically from request for surgery [id number] Acute pain of right knee 04/16/2017 Overview: Added automatically from request for surgery [id number] SUMMARY 04/03/2017 04/17/2017 Overview: Admit date: 04/03/2017 Reason for Admission/Observation: Unable to function Presentation: Patient is a 61-year-old female with PMH of [place], osteoarthritis, MRSA and herniated disc of the [...] of this encounter (statuses as of 01/01/2023) [facility] History of Past illness Narrative* [...] Overview: Added automatically from request for surgery [id number] Acute pain of right knee 06/25/201711/2017 Overview: Added automatically from request for surgery [id number] Patellar dislocation, right, initial encounter 04/20/2017 04/21/2017 Status post total knee repla cement using cement, right 04/16/2017 04/21/2017 Overview: Added automatically from request for surgery [id number] Acute pain of right knee 04/16/2017 Overview: Added automatically from request for surgery [id number] SUMMARY 04/03/2017 04/17/2017 Overview: Admit date: 04/03/2017 Reason for Admission/Observation: Unable to function Presentation: Patient is a 61-year-old female with PMH of [place], osteoarthritis, MRSA and herniated disc of the [...] been of minimal help. Hospital course: Consultants: Elieesr Valle Needed for Discharge: Disposition: documented as of this encounter (statuses as of 01/01/2023) [facility] History of Past illness Narrative* [...] Overview: Added automatically from request for surgery [id number] Acute pain of right knee 06/25/201711/2017 Overview: Added automatically from request for surgery [id number] Patellar dislocation, right, initial encounter 04/20/2017 04/21/2017 Status post total knee repla cement using cement, right 04/16/2017 04/21/2017 Overview: Added automatically from request for surgery [id number] Acute pain of right knee 04/16/2017 Overview: Added automatically from request for surgery [id number] SUMMARY 04/03/2017 04/17/2017 Overview: Admit date: 04/03/2017 Reason for Admission/Observation: Unable to function Presentation: Patient is a 61-year-old female with PMH of [place], osteoarthritis, MRSA and herniated disc of the [...] of this encounter (statuses as of 01/13/2023) [facility] History of Past illness Narrative* [...] Overview: Added automatically from request for surgery [id number] Acute pain of right knee 06/25/201711/2017 Overview: Added automatically from request for surgery [id number] Patellar dislocation, right, initial encounter 04/20/2017 04/21/2017 Status post total knee repla cement using cement, right 04/16/2017 04/21/2017 Overview: Added automatically from request for surgery [id number] Acute pain of right knee 04/16/2017 Overview: Added automatically from request for surgery [id number] SUMMARY 04/03/2017 04/17/2017 Overview: Admit date: 04/03/2017 Reason for Admission/Observation: Unable to function Presentation: Patient is a 61-year-old female with PMH of [place], osteoarthritis, MRSA and herniated disc of the [...] of this encounter (statuses as of 01/14/2023) [facility] History of Past illness Narrative* [...] Overview: Added automatically from request for surgery [id number] Acute pain of right knee 06/25/201711/2017 Overview: Added automatically from request for surgery [id number] Patellar dislocation, right, initial encounter 04/20/2017 04/21/2017 Status post total knee repla cement using cement, right 04/16/2017 04/21/2017 Overview: Added automatically from request for surgery [id number] Acute pain of right knee 04/16/2017 Overview: Added automatically from request for surgery [id number] SUMMARY 04/03/2017 04/17/2017 Overview: Admit date: 04/03/2017 Reason for Admission/Observation: Unable to function Presentation: Patient is a 61-year-old female with PMH of [place], osteoarthritis, MRSA and herniated disc of the [...] of this encounter (statuses as of 01/27/2023) [facility] History of Past illness Narrative* [...] Overview: Added automatically from request for surgery [id number] Acute pain of right knee 06/25/201711/2017 Overview: Added automatically from request for surgery [id number] Patellar dislocation, right, initial encounter 04/20/2017 04/21/2017 Status post total knee repla cement using cement, right 04/16/2017 04/21/2017 Overview: Added automatically from request for surgery [id number] Acute pain of right knee 04/16/2017 Overview: Added automatically from request for surgery [id number] SUMMARY 04/03/2017 04/17/2017 Overview: Admit date: 04/03/2017 Reason for Admission/Observation: Unable to function Presentation: Patient is a 61-year-old female with PMH of [place], osteoarthritis, MRSA and herniated disc of the [...] of this encounter (statuses as of 01/31/2023) [facility] History of Past illness Narrative* [...] Overview: Added automatically from request for surgery [id number] Acute pain of right knee 06/25/201711/2017 Overview: Added automatically from request for surgery [id number] Patellar dislocation, right, initial encounter 04/20/2017 04/21/2017 Status post total knee repla cement using cement, right 04/16/2017 04/21/2017 Overview: Added automatically from request for surgery [id number] Acute pain of right knee 04/16/2017 Overview: Added automatically from request for surgery [id number] SUMMARY 04/03/2017 04/17/2017 Overview: Admit date: 04/03/2017 Reason for Admission/Observation: Unable to function Presentation: Patient is a 61-year-old female with PMH of [place], osteoarthritis, MRSA and herniated disc of the [...] of this encounter (statuses as of 01/31/2023) [facility] History of Past illness Narrative* [...] Overview: Added automatically from request for surgery [id number] Acute pain of right knee 06/25/201711/2017 Overview: Added automatically from request for surgery [id number] Patellar dislocation, right, initial encounter 04/20/2017 04/21/2017 Status post total knee repla cement using cement, right 04/16/2017 04/21/2017 Overview: Added automatically from request for surgery [id number] Acute pain of right knee 04/16/2017 Overview: Added automatically from request for surgery [id number] SUMMARY 04/03/2017 04/17/2017 Overview: Admit date: 04/03/2017 Reason for Admission/Observation: Unable to function Presentation: Patient is a 61-year-old female with PMH of [place], osteoarthritis, MRSA and herniated disc of the [...] of this encounter (statuses as of 02/13/2023) [facility] of Past illness Narrative* [...] Overview: Added automatically from request for surgery [id number] Acute pain of right knee 06/25/201711/2017 Overview: Added automatically from request for surgery [id number] Patellar dislocation, right, initial encounter 04/20/2017 04/21/2017 Status post total knee repla cement using cement, right 04/16/2017 04/21/2017 Overview: Added automatically from request for surgery [id number] Acute pain of right knee 04/16/2017 Overview: Added automatically from request for surgery [id number] SUMMARY 04/03/2017 04/17/2017 Overview: Admit date: 04/03/2017 Reason for Admission/Observation: Unable to function Presentation: Patient is a 61-year-old female with PMH of [place], osteoarthritis, MRSA and herniated disc of the [...] of this encounter (statuses as of 02/14/2023) [facility] History of Past illness Narrative* [...] Overview: Added automatically from request for surgery [id number] Acute pain of right knee 06/25/201711/2017 Overview: Added automatically from request for surgery [id number] Patellar dislocation, right, initial encounter 04/20/2017 04/21/2017 Status post total knee repla cement using cement, right 04/16/2017 04/21/2017 Overview: Added automatically from request for surgery [id number] Acute pain of right knee 04/16/2017 Overview: Added automatically from request for surgery [id number] SUMMARY 04/03/2017 04/17/2017 Overview: Admit date: 04/03/2017 Reason for Admission/Observation: Unable to function Presentation: Patient is a 61-year-old female with PMH of [place], osteoarthritis, MRSA and herniated disc of the [...] of this encounter (statuses as of 03/30/2023) [facility] of Past illness Narrative* [...] Overview: Added automatically from request for surgery [id number] Acute pain of right knee 06/25/201711/2017 Overview: Added automatically from request for surgery [id number] Patellar dislocation, right, initial encounter 04/20/2017 04/21/2017 Status post total knee repla cement using cement, right 04/16/2017 04/21/2017 Overview: Added automatically from request for surgery [id number] Acute pain of right knee 04/16/2017 Overview: Added automatically from request for surgery [id number] SUMMARY 04/03/2017 04/17/2017 Overview: Admit date: 04/03/2017 Reason for Admission/Observation: Unable to function Presentation: Patient is a 61-year-old female with PMH of [place], osteoarthritis, MRSA and herniated disc of the [...] of this encounter (statuses as of 04/08/2023) [facility] of Past illness Narrative* [...] Overview: Added automatically from request for surgery [id number] Acute pain of right knee 06/25/201711/2017 Overview: Added automatically from request for surgery [id number] Patellar dislocation, right, initial encounter 04/20/2017 04/21/2017 Status post total knee repla cement using cement, right 04/16/2017 04/21/2017 Overview: Added automatically from request for surgery [id number] Acute pain of right knee 04/16/2017 Overview: Added automatically from request for surgery [id number] SUMMARY 04/03/2017 04/17/2017 Overview: Admit date: 04/03/2017 Reason for Admission/Observation: Unable to function Presentation: Patient is a 61-year-old female with PMH of [place], osteoarthritis, MRSA and herniated disc of the [...] of this encounter (statuses as of 04/14/2023) [facility] of Past illness Narrative* [...] Overview: Added automatically from request for surgery [id number] Acute pain of right knee 06/25/201711/2017 Overview: Added automatically from request for surgery [id number] Patellar dislocation, right, initial encounter 04/20/2017 04/21/2017 Status post total knee repla cement using cement, right 04/16/2017 04/21/2017 Overview: Added automatically from request for surgery [id number] Acute pain of right knee 04/16/2017 Overview: Added automatically from request for surgery [id number] SUMMARY 04/03/2017 04/17/2017 Overview: Admit date: 04/03/2017 Reason for Admission/Observation: Unable to function Presentation: Patient is a 61-year-old female with PMH of [place], osteoarthritis, MRSA and herniated disc of the [...] of this encounter (statuses as of 05/04/2023) [facility] of [facility] illness Narrative* [...] Overview: Added automatically from request for surgery [id number] Acute pain of right knee 06/25/201711/2017 Overview: Added automatically from request for surgery [id number] Patellar dislocation, right, initial encounter 04/20/2017 04/21/2017 Status post total knee repla cement using cement, right 04/16/2017 04/21/2017 Overview: Added automatically from request for surgery [id number] Acute pain of right knee 04/16/2017 Overview: Added automatically from request for surgery [id number] SUMMARY 04/03/2017 04/17/2017 Overview: Admit date: 04/03/2017 Reason for Admission/Observation: Unable to function Presentation: Patient is a 61-year-old female with PMH of [place], osteoarthritis, MRSA and herniated disc of the [...] of this encounter (statuses as of 05/11/2023) [facility] of [facility] Narrative* [...] Overview: Added automatically from request for surgery [id number] Acute pain of right knee 06/25/201711/2017 Overview: Added automatically from request for surgery [id number] Patellar dislocation, right, initial encounter 04/20/2017 04/21/2017 Status post total knee repla cement using cement, right 04/16/2017 04/21/2017 Overview: Added automatically from request for surgery [id number] Acute pain of right knee 04/16/2017 Overview: Added automatically from request for surgery [id number] SUMMARY 04/03/2017 04/17/2017 Overview: Admit date: 04/03/2017 Reason for Admission/Observation: Unable to function Presentation: Patient is a 61-year-old female with PMH of [place], osteoarthritis, MRSA and herniated disc of the [...] of this encounter (statuses as of 07/30/2023) [facility] Narrative* [...] Overview: Added automatically from request for surgery [id number] Acute pain of right knee 06/25/201711/2017 Overview: Added automatically from request for surgery [id number] Patellar dislocation, right, initial encounter 04/20/2017 04/21/2017 Status post total knee repla cement using cement, right 04/16/2017 04/21/2017 Overview: Added automatically from request for surgery [id number] Acute pain of right knee 04/16/2017 Overview: Added automatically from request for surgery [id number] SUMMARY 04/03/2017 04/17/2017 Overview: Admit date: 04/03/2017 Reason for Admission/Observation: Unable to function Presentation: Patient is a 61-year-old female with PMH of [place], osteoarthritis, MRSA and herniated disc of the [...] of this encounter (statuses as of 07/31/2023) [facility] of [facility] illness Narrative* [...] Overview: Added automatically from request for surgery [id number] Acute pain of right knee 06/25/201711/2017 Overview: Added automatically from request for surgery [id number] Patellar dislocation, right, initial encounter 04/20/2017 04/21/2017 Status post total knee repla cement using cement, right 04/16/2017 04/21/2017 Overview: Added automatically from request for surgery [id number] Acute pain of right knee 04/16/2017 Overview: Added automatically from request for surgery [id number] SUMMARY 04/03/2017 04/17/2017 Overview: Admit date: 04/03/2017 Reason for Admission/Observation: Unable to function Presentation: Patient is a 61-year-old female with PMH of [place], osteoarthritis, MRSA and herniated disc of the [...] of this encounter (statuses as of 08/11/2023) [facility] Diagnosis Cellulitis of right lower extremity- Primary Cellulitis and abscess of leg, except foot documented in this encounter [facility] Work Phone: Evaluation note* Diagnosis Chronic pain of right knee- Primary documented in this encounter [facility] Work Phone: Evaluation note* Diagnosis Chronic anxiety Anxiety state, unspecified documented in this encounter [facility] note* Diagnosis Chronic pain of right knee [facility] noteNo assessment information [facility]* Diagnosis Chronic anxiety Anxiety state, unspecified [facility] Diagnosis Chronic pain of right knee [facility] Diagnosis Chronic anxiety Anxiety state, unspecified [facility] Diagnosis Infection associated with internal right knee prosthesis, subsequent encounter Chronic anxiety Anxiety state, unspecified [facility] Diagnosis Chronic anxiety- Primary Anxiety state, unspecified [facility] Diagnosis Infection associated with internal right knee prosthesis, subsequent encounter [facility] Diagnosis Infection associated with internal right knee prosthesis, subsequent encounter [facility] Diagnosis Chronic anxiety Anxiety state, unspecified Chronic pain of right knee Infection associated with internal right knee prosthesis, subsequent encounter [facility] Diagnosis Infection associated with internal right knee prosthesis, subsequent encounter Chronic pain of right knee [facility] Diagnosis Breast pain, left- Primary Mastodynia [facility] Diagnosis Infection associated with internal right knee prosthesis, subsequent encounter [facility] Diagnosis Status post total left knee replacement- Primary [facility] Diagnosis Pain due to internal orthopedic prosthetic devices, implants and grafts, initial encounter ([facility] Diagnosis Chronic pain of right knee Chronic anxiety Anxiety state, unspecified [facility] Diagnosis Chronic anxiety Anxiety state, unspecified Chronic pain of right knee [facility] Diagnosis Chronic pain of right knee Infection associated with internal right knee prosthesis, subsequent encounter Chronic anxiety Anxiety state, unspecified [facility] Diagnosis Status post total left knee replacement- Primary S/P revision of total knee, right [facility] Diagnosis Infection associated with internal right knee prosthesis, subsequent encounter [facility] Diagnosis Infection associated with internal right knee prosthesis, subsequent encounter Chronic pain of right knee Chronic anxiety Anxiety state, unspecified documented in this encounter [facility] note* Diagnosis Chronic pain of right knee Chronic anxiety Anxiety state, unspecified Infection associated with internal right knee prosthesis, subsequent encounter documented in this encounter [facility] note* Diagnosis MS (multiple sclerosis) (HCC)- Primary Multiple sclerosis Daily headache Headache documented in this encounter [facility] note* Diagnosis Chronic anxiety Anxiety state, unspecified documented in this encounter [facility] note* Diagnosis Infection associated with internal right knee prosthesis, subsequent encounter documented in this encounter [facility] note* Diagnosis Encounter for screening mammogram for breast cancer documented in this encounter [facility] note* Diagnosis Left leg swelling- Primary documented in this encounter [facility] note* Diagnosis MS (multiple sclerosis) (HCC) Multiple sclerosis Daily headache Headache Infection associated with internal right knee prosthesis, subsequent encounter Chronic anxiety Anxiety state, unspecified documented in this encounter [facility] note* Diagnosis Infection associated with internal right knee prosthesis, subsequent encounter documented in this encounter [facility] note* Diagnosis MS (multiple sclerosis) (HCC) Multiple sclerosis Daily headache Headache Chronic anxiety Anxiety state, unspecified documented in this encounter [facility] note* Diagnosis Pyogenic arthritis of right knee joint, due to unspecified organism ([facility]) documented in this encounter [facility] note* Diagnosis MS (multiple sclerosis) (HCC) Multiple sclerosis Daily headache Headache Infection associated with internal right knee prosthesis, subsequent encounter Chronic anxiety Anxiety state, unspecified documented in this encounter [facility] note* Diagnosis MS (multiple sclerosis) (HCC) Multiple sclerosis Daily headache Headache Infection associated with internal right knee prosthesis, subsequent encounter Chronic anxiety Anxiety state, unspecified [facility] Diagnosis Chronic anxiety Anxiety state, unspecified MS (multiple sclerosis) (HCC) Multiple sclerosis Daily headache Headache [facility]* Diagnosis Infection associated with internal right knee prosthesis, subsequent encounter [facility] encounter [facility]* Diagnosis Chronic anxiety Anxiety state, unspecified Infection associated with internal right knee prosthesis, subsequent encounter MS (multiple sclerosis) (HCC) Multiple sclerosis Daily headache Headache documented in this encounter [facility] note* Diagnosis MS (multiple sclerosis) (HCC) Multiple sclerosis Daily headache Headache Chronic anxiety Anxiety state, unspecified Infection associated with internal right knee prosthesis, subsequent encounter [facility] Diagnosis Infection associated with internal right knee prosthesis, subsequent encounter Chronic anxiety Anxiety state, unspecified MS (multiple sclerosis) (HCC) Multiple sclerosis Daily headache Headache [facility] Diagnosis Chronic anxiety Anxiety state, unspecified Infection associated with internal right knee prosthesis, subsequent encounter MS (multiple sclerosis) (HCC) Multiple sclerosis Daily headache Headache [facility]* Diagnosis Chronic anxiety Anxiety state, unspecified documented [facility] this [facility]* Diagnosis Acute respiratory failure with hypoxia [...] prosthesis, subsequent encounter [facility] Diagnosis Acute respiratory failure with hypoxia [...] Daily headache Headache [facility] Diagnosis Acute respiratory failure with hypoxia [...] left knee replacement [facility] this [facility]* Diagnosis Acute respiratory failure with hypoxia [...] Anxiety state, unspecified documented in this encounter [facility] note* Diagnosis Acute respiratory failure with [...] Anxiety state, unspecified documented in this encounter [facility] note* Diagnosis Acute respiratory failure with [...] Daily headache Headache documented in this encounter [facility] note* Diagnosis Acute respiratory failure with [...] Daily headache Headache [facility] Diagnosis Acute respiratory failure with hypoxia [...] Anxiety state, unspecified documented in this encounter [facility] note* Diagnosis Acute respiratory failure with [...] prosthesis, subsequent encounter documented in this encounter [facility] note* Diagnosis Acute respiratory failure with [...] Daily headache Headache [facility]* Diagnosis Acute respiratory failure with hypoxia [...] Daily headache Headache [facility] Diagnosis Acute respiratory failure with hypoxia [...] prosthesis, subsequent encounter [facility]* Diagnosis Acute respiratory failure with hypoxia [...] Anxiety state, unspecified [facility]ructions* Nica Nolasco MD - 01/06/2021 Orthopaedic Surgery Discharge Instructions: You may bear weight as tolerated Apply Ice to affected area. This will help with pain. Elevate your right lower extremity/extremities. This will help with swelling. Take your medications and antibiotics as prescribed. Call Dr. Parrish's office to schedule a follow-up appointment as soon as possible documented in this [facility] Work Phone: Hospital Discharge instructions* Attachments The following attachments cannot be sent through Care Everywhere. * Dependent Edema Discharge Instructions (Nauruan) [facility] Diagnostic Procedure Only (Routine) - Pending Review Specialty Diagnoses / Procedures Referred By Contac t Referred To Contact BR IMAGING Diagnoses Breast pain, left Procedures US BREAST LTD LT US BREAST UNI REAL TIME WITH IMAGE LIMITED Moreno Oates MD [address] [place] [address] [place] [address] Br Imaging [address] [place] [address] Referral ID Status Reason Start Date Expiration Date Visits Requested Visits Authorized [id number] Pending Review Auto-Generat ed Referral 2 04/16/2023 1 1 * Diagnostic Procedure Only (Routine) - Pending Review Specialty Diagnoses / Procedures Referred By Andrea t Referred To Contact BR IMAGING Diagnoses Breast pain, left Procedures AMANDA DIAGNOSTIC BILAT DIAGNOSTIC MAMMOGRAPHY COMPUTER-AIDED DETCJ Moreno Alvarado MD [address] [address] Br Imaging [address] [place] [address] Referral ID Status Reason Start Date Expiration Date Visits Requested Visits Authorized [id number] Pending Review Auto-Generat ed Referral 2 04/16/2023 1 1 [facility] for referral (narrative)* Diagnostic Procedure Only (Routine) - Closed Specialty Diagnoses / Procedures Referred By Contac t Referred To Contact XR IMAGING Diagnoses Status post total left knee replacement Procedures XR KNEE POST OP 3V AP/LAT/MERCHANT LEFT RADIOLOGIC EXAMINATION KNEE 3 VIEWS Debbie Batista PA-C [address] [place] [address] Xr Imaging Referral ID Status Reason Start Date Expiration Date V isits Requested Visits Authorized [id number] Closed Auto-Generated Referral Financial Clearance Not Required 05/21/2022 06/20/2023 1 1 [facility] for referral (narrative)* Diagnostic Procedure Only (Routine) - Pending Review Specialty Diagnoses / Procedures Referred By Andrea t Referred To Contact BR IMAGING Diagnoses Encounter for screening mammogram for breast cancer Procedures AMANDA SCREENING SCREENING MAMMOGRAPHY BI 2-VIEW BREAST INC Moreno Mendez MD [address] [place] [address] Br Imaging [address] [place] [address] Referral ID Status Reason Start Date Expiration Date Visits Requested Visits Authorized [id number] Pending Review Auto-Generat ed Referral 11/12/2022 12/12/2023 1 1 [facility] for referral (narrative)* Diagnostic Procedure Only (Routine) - Closed Specialty Diagnoses / Procedures Referred By Andrea t Referred To Contact XR IMAGING Diagnoses Status post total left knee replacement Procedures XR KNEE POST OP 3V AP/LAT/MERCHANT LEFT RADIOLOGIC EXAMINATION KNEE 3 VIEWS Debbie Batista PA-C [address] [place] [id number] Xr Imaging [place] [address] Referral ID Status Reason Start Date Expiration Date V isits Requested Visits Authorized [id number] Closed Auto-Generated Referral Financial Clearance Not Required 05/21/2022 06/20/2023 1 1 [facility] for referral (narrative)No reason for referral information [facility]: Reason for visit Narrative* Diagnostic Procedure Only (Routine) - Closed Specialty Diagnoses / Procedures Referred By Andrea flores Referred To Contact CT IMAGING Diagnoses Pain due to internal orthopedic prosthetic devices, implants and grafts, initial... Procedures CT KNEE WO IVCON LT Debbie Batista PA-C [address] [place] [address] Ct Imaging Referral ID Status Reason Start Date Expiration Date V isits Requested Visits Authorized [id number] Closed OON/Self Pay Override 05/22/2022 11/18/2022 1 0 [facility] Summary Purpose Family History No Family History Records FoundNo Family History Records FoundNo Family History Records FoundNo Family History Records FoundNo Family History Records FoundNo Family History Records FoundNo Family History Records FoundNo Family History Records FoundNo Family History Records FoundNo Family History Records Found Advance Directives No Advanced Directives Records FoundDocuments on File Type Date Recorded Patient Television News Anchor Expl anation Advance Directive(s) 03/10/2018 4:43 PM Date Activated Date Inactivated Comments 12/01/2019 2:03 PM 12/19/2020 2:08 AM Latest Code Status on File Code Status Date Activated Date Inactivated Comments Full Code 12/01/2019 2:03 PM 12/19/2020 2:08 AM Documents on File Type Date Recorded Patient Television News Anchor Expl anation Advance Directives and Living Will Power of Jewelry Estimator Latest Code Status on File Code Status Date Activated Date Inactivated Comments Full Code 11/04/2019 9:10 PM Limited 10/12/2019 1:14 PM 10/25/2019 6:17 PM Intubation/Re-intubation: No Defibrillation/Cardioversion: No Chest Compressions: No Resuscitative Medications: No Other (Specify in Free Text): OK for NIV Full Code 10/03/2019 11:26 AM 10/12/2019 1:14 PM Documents on File Type Date Recorded Patient Television News Anchor Expl anation ACP-Advance Directive ACP-Power of Jewelry Estimator DNR Documentation 10/27/2019 8:41 AM Latest Code Status on File Code Status Date Activated Date Inactivated Comments Full Code 01/27/2020 11:12 PM Full Code 11/04/2019 9:10 PM 11/05/2019 1:25 AM Latest Code Status on File Code Status Date Activated Date Inactivated Comments Limited 10/12/2019 1:14 PM Documents on File Type Date Recorded Patient Television News Anchor Expl anation ACP-Advance Directive ACP-Power of Jewelry Estimator ACP-Do Not Resuscitate 10/27/2019 8:41 AM Latest Code Status on File Code Status Date Activated Date Inactivated Comments Full Code 01/27/2020 11:12 PM 02/03/2020 6:47 PM Documents on File Type Date Recorded Patient Television News Anchor Expl anation Advance Directive(s) 01/06/2021 4:29 AM [...] Documents on File Type Date Recorded Patient Television News Anchor Expl anation Advance Directive(s) 03/10/2018 4:43 PM Latest Code Status on File Code Status Date Activated Date Inactivated Comments Full Code 12/01/2019 2:03 PM 12/19/2020 2:08 AM Documents on File Type Date Recorded Patient Television News Anchor Expl anation DNR (Do Not Resuscitate) 10/03/2019 DNR (Do Not Resuscitate) 04/26/2015 Latest Code Status on File Code Status Date Activated Date Inactivated Comments Full Code 12/01/2019 2:03 PM 12/19/2020 2:08 AM Date Activated Date Inactivated Comments 12/01/2019 2:03 PM 12/19/2020 2:08 AM History of Present Illness * Jan Zepeda MD - 11/04/2019 9:29 PM EDT Discussed Mrs. Nguyen's case with Dr. Parrish ([facility] Orthopaedic Surgeon). Patient to be transferred to [facility]. Discussed with [facility] call center and transportation. Discussed with IMS at [facility] - will be accepting transfer. Transfer pending. Please page [phone] or investigation manager resident with questions or concerns. Jan Zepeda MD PGY-2, Orthopaedic Surgery [phone] 11/04/2019 .9:46 PM * Jan Zepeda MD - 11/04/2019 8:15 PM EDT documented in this encounter* Delisa Guaman RN - 02/03/2020 3:48 PM EDT Report called to [facility]. Informed them that the patient is scheduled to be picked up at 1600. * Kristen Howard OTA - 02/03/2020 1:37 PM EDT Occupational Therapy Facility/Department: [facility] TE[facility] Daily Treatment Note NAME: Charlie Nguyen [...] ARTHUR Tierney * Yamilka Yeboah APRN - TUNNEL HEADING SUPERVISOR - 02/02/2020 12:09 PM EDT Hospitalist Progress Note 02/02/2020 12:09 PM Subjective: Admit Date: 01/27/2020 PCP: Moreno Oates Room#: [id number] Interval History: c/o quite a bit of [...] Headache Ischemic colitis (HCC) MS (multiple sclerosis) ([facility]) -am labs, replace lytes prn -increase activity -DVT prophylaxis: [] Lovenox [] Heparin [] SCDs [x] Encourage ambulation [x] Already on Anticoagulation Advance Directive: Full Code Discharge planning: Needs SNF Division of Hospitalist Medicine Inpatient Medical Services * Elidia Solis MD - 02/02/2020 11:41 AM EDT I filled out the expert evaluation and faxed it to [phone] * Deja Koehler MD - 02/02/2020 8:05 [...] 02/01/2020 2:29 PM EDT Physical Therapy Facility/Department: [facility] Daily Treatment Note NAME: Charlie Nguyen : 1955 Date of Service: 02/01/2020 Discharge Recommendations: Subacute/Mcc Facility Assessment Assessment: Pt still presents with [...] Ischemic colitis (HCC), and MS (multiple sclerosis) ([facility]). has a past surgical history that includes [...] Treatment Minutes: 8 Minutes(1 ther act) Abimbola Taylor, NURSE RECRUITER * Kiley Goff PA-C - 02/01/2020 11:57 [...] 01/31/2020 11:12 AM EDT Physical Therapy Facility/Department: [facility] TELEMET[facility] Daily Treatment Note NAME: Charlie [...] PCP: Moreno Oates Room#: 255/2551 Interval History: Overnight the [...] 15.8* PLT 257 264 BMP: Recent Labs 01/30/2019 01/31/20 0549 NA 140 140 K 3.9 [...] 01/31/2020 11:07 AM EDT Occupational Therapy Facility/Department: [facility] TELE[facility] Daily Treatment Note NAME: Charlie Nguyen : 1955 Date of Service: 01/31/2020 Discharge Recommendations: Subacute/Mcc Facility Assessment Performance deficits / Impairments: Decreased [...] Ischemic colitis (HCC), and MS (multiple sclerosis) ([facility]). has a past surgical history that includes [...] time she does know she is in [facility], but she is still very much convinced [...] loss Fluid Accumulation: 1 - Mild Extremities Wash Driller Strength: Not Performed Estimated Daily Nutrient Needs: Energy (kcal): 8152-2776 kcals; Weight Used for Energy Requirements: [place] Protein (g): 70-84 g(1-1.2); Weight Used for Protein Requirements: [place] Fluid (ml/day): 7841-8532 ml/day or per MD; Weight Used for Fluid Requirements: [place] Nutrition Related Findings: +1 BLE edema, Cl [...] Usual Body Weight: 270 lb (122.5 kg)(10/03/19) [place] Body Weight: 155 lbs; % [place] Body Weight 164.5 % BMI: 35.6 Adjusted [...] Admit Date: 01/27/2020 PCP: Moreno Oates Room#: [id number] Interval History: No overnight issues. Upon entering [...] LABS: CBC: Recent Labs 01/27/20185101/28/20 0535 01/30/20 05 WBC 10.5 9.1 7.5 RBC 4.38 4.20 3.62* HGB 12.2 11.8 10.1* HCT 38.0 37.0 32.0* MCV 86.7 88.1 88.6 RDW 16.2* 16.2* 16.4* PLT 318 280 257 BMP: Recent Labs 01/27/20185101/28/20 0535 01/30/20 05 NA 140 138 140 K 2.6* 3.2* [...] 01/29/2020 11:34 AM EDT Physical Therapy Facility/Department: [facility] TELEMETRY Initial Assessment NAME: Charlie Nguyen : 1955 Date of Service: 01/29/2020 Having reviewed the treatment plan and goals for this patient, I certify that the plan of care below is medically necessary and appropriate. Discharge Recommendations: Subacute/Mcc Facility PT Equipment Recommendations Equipment Needed: No [...] Ischemic colitis (HCC), and MS (multiple sclerosis) ([facility]). has a past surgical history that includes [...] Alternating Movements: Normal Sensation Overall Sensation Status: WF Bed mobility Supine to Sit: Contact guard [...] AM-PAC Inpatient Mobility Raw Score : 15 (01/29/201129) AM-PAC Inpatient T-Scale Score : 39.45 (01/29/201129) Mobility Inpatient CMS 0-100% Score: 57.7 (01/29/201129) Mobility Inpatient CMS G-Code Modifier : CK (08/30/20 1130) Goals Short term goals Time Frame for [...] Minutes 20 Fernandez Bahena, PT * Arlin Baltazar, OT - 01/29/2020 11:20 AM EDT Occupational Therapy Occupational Therapy Initial Assessment Date: 01/29/2020 Patient Name: Charlie Nguyen : 1955 Date of Service: 01/29/2020 Discharge Recommendations: Subacute/Mcc Facility Assessment Performance deficits / Impairments: Decreased [...] Ischemic colitis (HCC), and MS (multiple sclerosis) ([facility]). has a past surgical history that includes [...] in collaboration with the pt. AM-PAC Score AM-[facility] Inpatient Daily Activity Raw Score: 16 (01/29/20 111) AM-[facility] Inpatient ADL T-Scale Score : 35.96 (01/29/201109) ADL Inpatient CMS 0-100% Score: 53.32 (01/29/20 111) ADL Inpatient CMS G-Code Modifier : CK [...] 01/28/2020 3:10 PM EDT Physical Therapy Facility/Department: [facility] Daily Treatment Note NAME: Charlie Nguyen [...] AM documented in this encounter* Joselin Diaz, JENN - 10/25/2019 2:49 PM EDT Called report to [facility]. * Carlos Degroot, PT - 10/25/2019 1:30 [...] plan changes. Sandie Taylor OT * Kristen Burton SLP - 10/25/2019 11:45 AM EDT Speech Language Pathology Facility/Department: [facility] TELE[facility] Speech Language/Dysphagia Daily Therapy Note [...] per plan of care. Kristen Burton M.A., [facility] Speech-Language Pathologist Time in 1135 Time out 1145 * Clinton Deleon MD - 10/25/2019 11:10 AM EDT [facility], Pulmonary Critical Care and Sleep Medicine [address] [place] [id number] Patient - Charlie Nguyen, Age - 64 y.o. - 1955 Room Number - [phone] Consulting - Max Bob DO Primary Care Physician - Moreno Oates Date of Admission - 10/03/2019 7:34 AM Hospital Day - I have evaluated the patient and reviewed the case with the TELEVISION STATION MANAGER. I agree with the current plan of [...] N95 MASK, Gown, FACE SHIELD AND GLOVES [phone]: Please page tn @ [phone] for patient care issues. : Please page [facility] night Hospitalist for any issues. Subjective: [...] Headache Ischemic colitis (HCC) MS (multiple sclerosis) ([facility]) Plan : Pysch cleared for I/P stay, [...] Services This report was created using the [employer] Speaking voice- activated system. Despiteprompt dictation and [...] 10/23/2019 12:45 PM EDT Patient transferred to [facility] from [facility]. * Deepti Kim SLP - 10/23/2019 12:26 PM EDT Speech Language Pathology Facility/Department: [facility] Daily Treatment Note NAME: Charlie Nguyen [...] Intake/Output Summary (Last 24 hours) at 10/23/2019 08 Last data filed at 10/23/2019 0701 Gross [...] at least 32 minutes so far today. Polo Fields RCP - 10/22/2019 4:00 AM EDT ABG [...] intakes, weight; follow up Nutrition Assessment: multiple zipper setter chainstitch [facility] seizure-like activity, restlessness and confusion. pt awaiting breakfast/ speech therapy following Malnutrition Assessment: Malnutrition Status: At risk for malnutrition(as previously assessed per RD) Context: Acute illness or injury Nutrition Risk Level: High Nutrient Needs: Estimated Daily Total Kcal: 9122-1091 kcals(25-28) Estimated Daily Protein (g): 66-79(1-1.2) Estimated [...] gain in 11 months (240# on 10/2018) [place] Body Wt: 145 lb (65.8 kg), % [place] Body 186 BMI Classification: BMI > or equal to 40.0 Obese Class III Nutrition Interventions: Continue current diet, Continue current ONS Continued Inpatient Monitoring, Speech Therapy Nutrition Evaluation: Evaluation: Progressing toward goals(diet advanced 10/12 pinion sorter following ) Goals: pt will receive/tolerate adequate nutrition with safe swallow; Intakes will be >75% of meals/supplements Monitoring: Meal Intake, Supplement Intake, Diet Tolerance, Skin Integrity, Wound Healing, I&O,Mental Status/Confusion, Weight, Pertinent Labs, Chewing/Swallowing, Monitor Hemodynamic Status, Monitor Bowel Function Contact Number: [phone] * Nathaly Garcia PT - 10/21/2019 8:48 AM EDT Physical Therapy Facility/Department: [facility] Initial Assessment NAME: Charlie Nguyen : 1955 Date of Service: 10/21/2019 Chart review completed. Patient with multiple zipper setter chainstitch and [facility], therapy will require new orders to resume treatment once patient is medically appropriate. Nathaly Garcia, PT * Kristen Burton SLP - 10/21/2019 8:47 AM EDT Speech Language Pathology Facility/Department: [facility] Speech Language/Dysphagia Daily Therapy Note NAME: [...] per plan of care. Kristen Burton M.A., CCC-EMERGENCY VETERINARIAN Speech-Language Pathologist Time in 817 Time out 847 * Sandie Taylor OT - 10/21/2019 7:53 AM EDT Occupational Therapy Facility/Department: [facility] Daily Treatment Note NAME: Charlie Hicksell : 1955 Date of Service: 10/21/2019 Discharge Recommendations: Subacute/[facility] Facility, Continue to assess pending progress, LTACH Pt with IMPLEMENT MECHANIC and [facility]. Please re-order therapy when medically stable. Sandie Taylor OT * Doris Brink, NURSE RECRUITER - 10/21/2019 7:43 AM EDT Physical Therapy Facility/Department: [facility] Daily Treatment Note NAME: Charlie Hicksell : 1955 Date of Service: 10/21/2019 General Chart Reviewed: Yes Missed reason: (Pt IMPLEMENT MECHANIC'd a second time and transferred to HICU. PT to address need for new orders vs continuation of treatment.) Doris Brink PTA * Des Romero MD - 10/21/2019 6:31 AM EDT [facility] [place], Pulmonary Critical Care and Sleep Medicine [address] [place] [address] Critical Care Note: Patient - Charlie Nguyen, Age - 64 y.o. - 1955 Room Number - [id number] N - [id number] [id number] Date of Admission - 10/03/2019 7:34 AM [...] Date 10/21/19 0000 - 10/21/19 2359 Shift [id number] 0814-3674 1521-4626 24 Hour Total INTAKE Shift Total(mL/kg) OUTPUT [...] by psychiatry was to be transferred to [place] once clinically stable History of multiple sclerosis/debility [...] Romero MD - 10/20/2019 3:46 PM EDT [facility] [place], Pulmonary Critical Care and Sleep Medicine [address] [place] [address] Critical Care Note: Patient - Charlie Nguyen, Age - 64 y.o. - 1955 Room Number - [address] [place] [address] - [id number] Date of Admission - 10/03/2019 7:34 AM [...] filled out and give to the social worker aide. I also spoke with her daughter and informed her that evaluation has been filled out. Signing off for now. Contact with any concerns or questions * Doris Brink PTA - 10/20/2019 1:21 PM EDT Physical Therapy Facility/Department: [facility] TELEMETRY Daily Treatment Note NAME: Charlie Ngueyn : 1955 Date of Service: 10/20/2019 General Chart Reviewed: Yes Missed reason: (Pt just IMPLEMENT MECHANIC'd. Will hold therapy until more stabilized and may need PT to readdressgoals. Will continue to follow) Doris Brink PTA * Kristen Burton SLP - 10/20/2019 1:10 PM EDT Speech Language Pathology Pt with recent IMPLEMENT MECHANIC. Pt became unresponsive and eyes rolled back in head. D/W Dr. Corona briefly after IMPLEMENT MECHANIC. Neurology was consulted. Will follow up as medically stable. Concern with aspiration and crackles bases/rhonchi. Pt's status waxes and wanes. * Kristen Howard OTA - 10/20/2019 12:03 PM EDT Occupational Therapy Facility/Department: [facility] TELEMETRY Daily Treatment Note NAME: Charlie Nguyen : 1955 Date of Service: 10/20/2019 Discharge Recommendations: Subacute/Mcc Facility, Continue to assess pending progress, LTACH [...] Code Treatment Minutes: 14 Minutes(ther ex) ARTHUR Tiernye * Clinton Deleon MD - 10/20/2019 10:30 AM EDT [facility] [place], Pulmonary Critical Care and Sleep Medicine [address] [place] [phone] Patient - Charlie Nguyen, Age - 64 y.o. - 1955 Room Number - 258/2581 Consulting - Max Bob DO Primary Care Physician - Moreno Farideh Reyesedelmiramoody [facility] - [id number] Date of Admission - 10/03/2019 7:34 AM Hospital Day - 17 I have evaluated the patient and reviewed the case with the TELEVISION STATION MANAGER. I agree with the current plan of [...] in bed. Confused this morning believing her ekg monitor tech is her telephone.However more awake and alert [...] alert this morning. Lying in bed. - IMPLEMENT MECHANIC was called 10/17. ABG normal. CXR no [...] Planning for LTAC at discharge. Addendum 1250 IMPLEMENT MECHANIC called again today for patient as patient [...] Man, DO - 10/20/2019 10:05 AM EDT [facility] Palliative Care Transitions of Care [...] baseline patient is non-ambulatory and [place] [facility] [place]. She has not walked in [...] legally her ( 5-6 years), Brayden Nguyen ([phone]). Family prefers that Vicente Driscoll (daughter) is contacted first ([phone]). She has 2 living adultchildren (Vicente and [...] issue per family -see Dr Celestin in [place] -psych following Multiple sclerosis/debility -follows with the [facility] as outpatient -uses wheelchair at baseline -outpatient [...] EDT Hospitalist Progress Note 10/20/2019 8:01 AM [phone]: Please page me ([phone]) for patient care issues. [phone]: Please page [facility] night Hospitalist for any [...] Headache Ischemic colitis (HCC) MS (multiple sclerosis) ([facility]) Medications: amoxicillin-clavulanate 1 tablet Oral 2 times [...] of Hospitalist Medicine Inpatient Medical Services PAGER: [phone] * Sunday Cao RN - 10/20/2019 4:42 AM EDT Pt elsa Rn not able to draw morning lab. Notified Dr. Gayle Acknowledged. * Sepideh Lopez RCP - 10/20/2019 12:01 AM EDT [facility] Respiratory Care Department Progress Note Patient [...] 10:48 AM EDT Speech Language Pathology Facility/Department: [facility] TELEMET[facility] Speech Language/Dysphagia Daily Therapy Note [...] refused her tylenol for nursing. Pt experienced IMPLEMENT MECHANIC lastevening with period of unresponsiveness. She had audible wheezes and crackles-cxray was negative for new processes: The trachea is midline. The heart is not enlarged. No focal areas of consolidation or volume loss are seen. There are no pleural effusions. The pulmonary vasculature may be at most mildly congested. The visualized bony structures are intact. D/C to [place] was cx. Last pm (10/17) 3L nasal [...] per plan of care. Kristen Burton M.A., [facility]-EMERGENCY VETERINARIAN Speech-Language Pathologist Time in 950 Time out 1031 * Clinton Deleon MD - 10/19/2019 10:48 AM EDT [facility] [place], Pulmonary Critical Care and Sleep Medicine [address] [place] [address] Patient - Charlie Nguyen, Age - 64 y.o. - 1955 Room Number - [id number] Consulting - Max Bob DO Primary Care Physician - Moreno Farideh Reyesedelmiramoody Date of Admission - 10/03/2019 7:34 AM Hospital Day - 16 I have evaluated the patient and reviewed the case with the TELEVISION STATION MANAGER. I agree with the current plan of care including the workup, evaluation, management, and diagnosis. Care plan has been discussed. I independently examined and evaluated the patient. The documentation below has been reviewed and edited as needed to reflect the findings of my evaluation IMPLEMENT MECHANIC was called on the patient yesterday for change in MS ABG/ Cxray reviewed follow neurologically Has been placed on empiric antibiotics Subjective/Events Past 24 hours/ROS Patient awake lying in bed. Complains of headache and nausea this morning. On 4 liters NC. Wearing BiPAP at night. IMPLEMENT MECHANIC called yesterday as patient became unresponsive and [...] (HCC) [F39] Acute respiratory failure with hypoxia ([facility]) [J96.01] Intentional drug overdose (HCC) [T50.902A] 10/03/2019 Drug overdose, multiple drugs, accidental or unintentional, initial encounter [T50.911A] 10/03/2019 Assessment and Plan Acute hypoxic respiratory failure s/p mechanical ventilation likely r/t aspiration - Extubated 10/11 - Continue supplemental O2 to maintain SpO2 92%. Wean off as patient tolerates. - If plans are to d/c home with C will need home O2 evaluation. - BD therapy - f/u CXR reviewed Unresponsive episode 10/18/19 - patient still a sleepy this morning however she is responding to questions - IMPLEMENT MECHANIC was called. ABG normal. CXR no significant [...] EDT Hospitalist Progress Note 10/19/2019 7:12 AM [phone]: Please page me ([phone]) for patient care issues. [phone]: Please page [facility] night Hospitalist for any issues. Subjective: Admit Date: 10/03/2019 PCP: Moreno Oates Room#: 258/2587 Interval History: IMPLEMENT MECHANIC called for unresponsiveness overnight. See significant event [...] Headache Ischemic colitis (HCC) MS (multiple sclerosis) ([facility]) Medications: ampicillin-sulbactam (UNASYN) 3 g ivpb minibag [...] up to transfer last night prior to IMPLEMENT MECHANIC; Plan now for guardianshipand placement 5. Transaminitis [...] of Hospitalist Medicine Inpatient Medical Services PAGER: [phone] * Ashley Miller RN - 10/18/2019 7:13 PM EDT tulio notified of 3.1 potassium. * Ashley Miller RN - 10/18/2019 5:43 PM EDT Discharge cancelled. Patient remaining on 2 east after IMPLEMENT MECHANIC called. [place] notified. * Ashley Miller RN - 10/18/2019 4:25 PM EDT NOTIFIED PATIENT'S DAUGHTER, VICENTE, OF TRANSFER [place]ASH TO [facility] AROUND 8PM PICKUP. * Ashley Miller RN - 10/18/2019 4:13 PM EDT REPORT GIVEN TO DEISY BARAJAS AT [facility]. ETA OF AMBULANCE IS 2000 HRS. * Ashley Miller RN - 10/18/2019 3:49 PM EDT ATTEMPTED TO CALL REPORT TO RN ON [place]. * Ashley Miller RN - 10/18/2019 3:46 PM EDT PATIENT GOING TO [address] ROOM [phone] (REPORT LINE). * Ashley Miller RN - 10/18/2019 3:12 PM EDT CHIROPRACTIC PRACTICE MANAGER DISCONTINUED. PATIENT HAS BED NOW AT [facility] . WILL CALL REPORT DIRECTLY AND ARRANGE FOR TRANSPORT. * Kristen Burton SLP - 10/18/2019 2:07 PM EDT Speech Language Pathology Facility/Department: [facility] TELEMETRY Initial Speech/Language/Cognitive Assessment NAME: Charlie [...] perseverated on 'lillian" ..."puneet cat baby" Abstraction Subtest:2 Both expensive; their whores Orientation Subtest:07/07 1972 [...] oriented to place and time. Recommendations: Requires EMERGENCY VETERINARIAN Intervention: Yes Duration/Frequency of Treatment: 5 visits [...] Abstraction Subtest:1/2 Both expensive; their whores Orientation Subtest:26 1972 would not state month Overall Score: [...] JIM Franz 10/18/2019 2:21 PM * Doris Brink, NURSE RECRUITER - 10/18/2019 1:50 PM EDT Physical Therapy Facility/Department: [facility] TELEMETRY Daily Treatment Note NAME: Charlie Nguyen : 1955 Date of Service: 10/18/2019 General Chart Reviewed: Yes Missed reason: (Pt held secondary to being discharged to psychiatric hospital today per CM.) Doris Brink PTA * Kristen Burton, EMERGENCY VETERINARIAN - 10/18/2019 1:16 PM EDT Speech Language Pathology Facility/Department: [facility] TELEMETRY Dysphagia Treatment Note Late entry 10/18/19 NAME: Charlie Nguyen : 1955 Patient Diagnosis(es): Patient Active Problem List Diagnosis Migraine Internal derangement of right knee Glioma (HCC) Hypertension Chronic nonintractable headache Intentional drug overdose (HCC) Drug overdose, multiple drugs, accidental or unintentional, initial encounter Acute respiratory failure with hypoxia ([facility]) Unspecified mood (affective) disorder ([facility]) Allergies: Allergies Allergen Reactions Macrobid [Nitrofurantoin Monohyd [...] alertness. Total Minutes: 20 minutes Kristen Burton M.A.CCC/EMERGENCY VETERINARIAN Speech-Language Pathologist * Lisa Townsend, RD, LD - 10/18/2019 11:05 AM EDT Nutrition Assessment Type and Reason for Visit: Reassess Nutrition Recommendations: 1. Continue with Dental soft. Will send chopped meats and well done/cut up vegetables. EMERGENCY VETERINARIAN following. 2. Continue with Ensure high protein [...] time. Pt continues to have decreased PO. EMERGENCY VETERINARIAN is following to ensure safe swallow on [...] BUE edema; +2 pitting BLE edema 6. Wash Driller Strength-Measurably reduced(per RN flowsheet assessment) Nutrition Risk Level: High Nutrient Needs: Estimated Daily Total Kcal: 4536-0638 kcals(25-28) Estimated Daily Protein (g): 66-79(1-1.2) Estimated [...] gain in 11 months (240# on 10/2018) [place] Body Wt: 145 lb (65.8 kg), % [place] Body 186 BMI Classification: BMI > or [...] legally her ( 5-6 years), Brayden Nguyen ([phone]). Family prefers that Vicente Driscoll (daughter) is contacted first ([phone]). She has 2 living adultchildren (Vicente and [...] issue per family -see Dr Celestin in [place] -psych following Multiple sclerosis/debility -follows with the [facility] as outpatient -uses wheelchair at baseline -outpatient [...] of Life, Remain at Home and Preserve Gordon/Autonomy/Control Advance Directives: limited code- no CPR or intubation, okay for NIV Surrogate: Spouse Prognosis: unknown Spiritualassessment: No spiritual distress identified Bereavement and grief: To Be Determined ROS: See palliative care ROS/ESAS below; see HPI Review of Systems Social history: [place] status: no Marital status: , 5-6 years [...] Psychiatric: Comments: Talking with bizarre tangential thoughts [place] Symptom Assessment Score [place] Score Pain Score 0 Tiredness Score 5 [...] 64 y.o. female who was seen for [id number] on 10/10/19 who is hospice appropriate with an expected prognosis of 6 months or less due to the following: Not applicable Write hospice narrative \\ * Kristen HowardARTHUR - 10/17/2019 2:55 PM EDT Occupational Therapy Facility/Department: [facility] TELEMETRY Daily Treatment Note NAME: Charlie Nguyen : 1955 Date of Service: 10/17/2019 Discharge Recommendations: Subacute/Mcc Facility, Continue to assess pending progress, LTACH [...] diagnosis was Intentional drug overdose, initial encounter ([facility] Diagnoses of Acute hypoxemic respiratory failure (HCC) and Leukocytosis, unspecified type were also pertinent to this visit. has a past medical history of Anxiety, Brain tumor (HCC), Depression, GERD (gastroesophageal refluxdisease), Headache, Ischemic colitis (HCC), and MS (multiple sclerosis) ([facility]). has a past surgical history that includes [...] attending to directions;Difficulty dividing attention Memory: Decreased roasterman memory;Decreased short term memory;Decreased recall of recent [...] this admission. AUGUSTINE attempted to educate pt investigation manager button but pt not attending. Patient Goals Patient goals : improve ADL indep Therapy Time Individual Concurrent Group Co-treatment Time In 1255 Time Out 1308 Minutes 13 Timed Code Treatment Minutes: 12 Minutes(ther ex) ARTHUR Tierney * Kristen Burton, EMERGENCY VETERINARIAN - 10/17/2019 2:40 PM EDT Speech Language Pathology Facility/Department: [facility] TELEMETRY Dysphagia Treatment Note NAME: Charlie Nguyen [...] L nasal cannula-pt O2 was off when EMERGENCY VETERINARIAN entered SpO2 was 87% and increased to [...] don't have MS, someone lied about that." EMERGENCY VETERINARIAN only asked her if she was in [...] eval. Total Minutes: 21 minutes Kristen Burton M.A.CCC/EMERGENCY VETERINARIAN Speech-Language Pathologist * Doris Brink PTA - 10/17/2019 9:39 AM EDT Physical Therapy Facility/Department: [facility] TELEMETRY Daily Treatment Note NAME: Charlie Nguyen : 1955 Date of Service: 10/17/2019 Discharge Recommendations: Subacute/Mcc Facility Assessment Assessment: Pt demonstrated an improvement [...] diagnosis was Intentional drug overdose, initial encounter ([facility]). Diagnoses of Acute hypoxemic respiratory failure ([facility]) and Leukocytosis, unspecified type were also pertinent to this visit. has a past medical history of Anxiety, Brain tumor ([facility]), Depression, GERD (gastroesophageal refluxdisease), Headache, Ischemic colitis (HCC), and MS (multiple sclerosis) ([facility]). has a past surgical history that includes [...] attending to directions;Difficulty dividing attention Memory: Decreased roasterman memory;Decreased short term memory;Decreased recall of recent [...] Minutes: 23 Minutes(ther act and neuro) Doris Brink, NURSE RECRUITER * Ching Sethi, RETAIL RECEIVING CLERK - TUNNEL HEADING SUPERVISOR - 10/17/2019 9:02 AM EDT [facility] [place], Pulmonary Critical Care and Sleep Medicine [address] [place] [id number] Patient - Charlie Nguyen, Age - 64 [...] - Regular rate and rhythm on the hotel front desk agent. Abdomen - obese. Neurologic - Awake, alert, [...] with hypoxia (HCC) [J96.01] Intentional drug overdose ([facility]) [T50.902A] 10/03/2019 Drug overdose, multiple drugs, accidental or unintentional, initial encounter [T50.911A] 10/03/2019 Assessment and Plan Acute hypoxic respiratory failure s/p mechanical ventilation likely r/t aspiration - Extubated 10/11 - Continue supplemental O2 to maintain SpO2 92%. Wean off as patient tolerates. - If plans are to d/c home with [facility] will need home O2 evaluation. - BD [...] EDT Hospitalist Progress Note 10/17/2019 7:23 AM [phone]: Please page me ([phone]) for patient care issues. [phone]: Please page [facility] Hospitalist for any issues. Subjective: Admit Date: 10/03/2019 PCP: Moreno Oates Room#: 906/2685 Interval History: Pt seems to be playing [...] negative Plan -Psych re-evaluation - Placement vs C -palliative care following -am labs, replace lytes prn -increase activity/PT/OT -DVT prophylaxis: [x] Lovenox [] Heparin [] SCDs [x] Encourage ambulation [] Already on Anticoagulation Advance Directive: Limited Discharge plannin-48 hours pending return visit from Psychiatry Ruddy Corona MD Division of Hospitalist Medicine Inpatient Medical Services PAGER: [phone] * Danisha Clinton RN - 10/17/2019 4:51 [...] 10/16/2019 12:10 PM EDT Physical Therapy Facility/Department: [facility] TELEMETRY Daily Treatment Note NAME: Charlie Nguyen : 1955 Date of Service: 10/16/2019 Discharge Recommendations: Subacute/Mcc Facility Assessment Assessment: Pt has weak quad contraction on RLE and unable to to perform a SAQ. Pt would benefit from therapy to progress safe functional mobility REQUIRES PT FOLLOW UP: Yes Activity Tolerance Activity Tolerance: Patient limited by fatigue;Patient limited by endurance Patient Diagnosis(es): The primary encounter diagnosis was Intentional drug overdose, initial encounter ([facility] Diagnoses of Acute hypoxemic respiratory failure (HCC) and Leukocytosis, unspecified type were also pertinent to this visit. has a past medical history of Anxiety, Brain tumor (HCC), Depression, GERD (gastroesophageal refluxdisease), Headache, Ischemic colitis (HCC), and MS (multiple sclerosis) ([facility]). has a past surgical history that includes [...] EDT Hospitalist Progress Note 10/16/2019 8:57 AM [phone]: Please page me ([phone]) for patient care issues. [phone]: Please page [facility] night Hospitalist for any issues. Subjective: [...] mg Subcutaneous Daily LABS: CBC: Recent Labs 10/14/1942510/15/1916 10/16/19 0352 WBC 19.8* 17.4* 16.7* RBC 3.86 3.88 3.71* HGB 12.2 12.2 12.0 HCT 37.4 38.5 36.2 MCV 96.9 99.0* 97.6 RDW 15.5* 15.6* 15.3* PLT 669* 654* 575* BMP: Recent Labs 10/14/1942510/15/1951510/16/19 035 NA 141 143 142 K 3.1* [...] of Hospitalist Medicine Inpatient Medical Services PAGER: [phone] * Ruddy Corona MD - 10/15/2019 7:39 AM EDT Hospitalist Progress Note 10/15/2019 7:39 AM [phone]: Please page me ([phone]) for patient care issues. [phone]: Please page [facility] night Hospitalist for any issues. Subjective: [...] Headache Ischemic colitis (HCC) MS (multiple sclerosis) ([facility]) Medications: linezolid 600 mg Oral 2 times [...] of Hospitalist Medicine Inpatient Medical Services PAGER: [phone] * Shaheen Man DO - 10/14/2019 4:46 [...] legally her ( 5-6 years), Brayden Nguyen ([phone]). She has 2 living adult children (Vicente [...] issue per family -see Dr Celestin in [place] -psych following Multiple sclerosis/debility -follows with the [facility] as outpatient -uses wheelchair at baseline -outpatient [...] of Life, Remain at Home and Preserve Gordon/Autonomy/Control Advance Directives: limited code- no CPR or intubation, okay for NIV Surrogate: Spouse Prognosis: unknown Spiritualassessment: No spiritual distress identified Bereavement and grief: To Be Determined ROS: See palliative care ROS/ESAS below; see HPI Review of Systems Social history: [place] status: no Marital status: , 5-6 years [...] response to questions, appears flat and depressed [place] Symptom Assessment Score [place] Score Pain Score 0 Tiredness Score 5 [...] 64 y.o. female who was seen for [id number] on 10/10/19 who is hospice appropriate with an expected prognosis of 6 months or less due to the following: Not applicable Write hospice narrative \\ * Kristen Burton, EMERGENCY VETERINARIAN - 10/14/2019 1:28 PM EDT Speech Language Pathology Facility/Department: [facility] TELEMETRY Dysphagia Treatment Note NAME: Charlie [...] of encouragement. Pt accepted 1/2 piece of [place] toast, 6 b ites of cottage cheese, [...] (recline slightly) Total Minutes: 30minutes Kristen Burton M.A.CCC/EMERGENCY VETERINARIAN Speech-Language Pathologist * Max Bob, - 10/14/2019 12:08 PM EDT Hospitalist Progress Note 10/14/2019 12:08 PM [phone]: Please page me ([phone]) for patient care issues. [phone]: Please page [facility] night Hospitalist for any issues. Subjective: Admit Date: 10/03/2019 PCP: Moreno Oates Room#: 040/6904 Interval History: Patient transferred out of ICU [...] Headache Ischemic colitis (HCC) MS (multiple sclerosis) ([facility]) Medications: linezolid 600 mg Oral 2 times [...] PLT 571* 668* 669* BMP: Recent Labs 10/12/1940710/13/1932610/13/1942 10/14/196 NA 140 142 -- 141 K 3.7 2.8* 3.4* 3.1* CL 103 105 -- 105 CO2 29 28 -- 27 BUN 21* 15 -- 22* CREATININE 0.48* 0.52 -- 0.68 GLUCOSE 168* 110* -- 106* CALCIUM 8.0* 8.2* -- 8.2* ANIONGAP 8 9 -- 9 LIVER PROFILE: Recent Labs 10/12/1940710/13/1932610/14/19425 AST 69* 118* 141* ALT 61* 122* [...] of Hospitalist Medicine Inpatient Medical Services PAGER: [phone] * Kristen Burton, JIM - 10/14/2019 11:35 AM EDT Speech Language Pathology Attempted at 10:30. Pt continue very flat with limited participation. Will attempt again at later time. Kristen Burton MA, [facility]-EMERGENCY VETERINARIAN Speech-Language Pathologist * Lisa Townsend RD, LD - 10/14/2019 10:01 AM EDT Nutrition Assessment Type and Reason for Visit: Reassess Nutrition Recommendations: 1. Continue with Dental soft diet. EMERGENCY VETERINARIAN following to ensure safe swallowing. 2. Initiate [...] from ICU and extubated at this time. EMERGENCY VETERINARIAN is following pt on Dental soft diet. [...] fluid accumulation, Extremities(+2-2 pitting all ext) 6. Wash Driller Strength-Not measured Nutrition Risk Level: High Nutrient Needs: Estimated Daily Total Kcal: 9089-3780 kcals(25-28) Estimated Daily Protein (g): 66-79(1-1.2) Estimated [...] Weight Change: , was 150 lbs in 2016; 10/2018 was 240 lbs. incr 30 lbs in 11 mo? [place] Body Wt: 145 lb (65.8 kg), % [place] Body 186 BMI Classification: BMI 35.0 - [...] Number: [id number] * Ching Sethi APRN - TUNNEL HEADING SUPERVISOR - 10/14/2019 9:11 AM EDT [facility], Pulmonary Critical Care and Sleep Medicine [address] [place] [address] 14048 Patient - Charlie Nguyen, Age - 64 y.o. - 1955 Room Number - 258/2581 Consulting - Max Bob DO Primary Care Physician - Moreno Oates Date of Admission - 10/03/2019 7:34 AM Hospital Day - 11 Subjective/Events Past 24 hours/ROS Patient awake lying in bed. assistant gm of content & delivery at bedside checking vitals. 96% on 3 [...] MODE, SETTIDVOL, SETPEEP LIVER PROFILE Recent Labs 10/14/19425 AST 141* ALT 221* BILITOT 0.8 ALKPHOS [...] patient and reviewed the case with the TELEVISION STATION MANAGER. I agree with the current plan of [...] just want to watch TV' * Kristen Burton, JIM - 10/13/2019 4:11 PM EDT Speech Language Pathology Facility/Department: [facility] TELEMET[facility] Dysphagia Treatment Note NAME: Charlie Nguyen [...] water. Total Minutes: 22 minutes Kristen Burton M.A.CCC/EMERGENCY VETERINARIAN Speech-Language Pathologist * Shaheen Man DO - [...] legally her ( 5-6 years), Brayden Nguyen ([phone]). She has 2 living adult children (Vicente [...] -psych following Multiple sclerosis/debility -follows with the [facility] as outpatient -uses wheelchair at baseline -requesting records from [facility] Palliative care encounter -DNRCCA/DNI->ordered as limited code [...] of Life, Remain at Home and Preserve Gordon/Autonomy/Control Advance Directives: limited code- no CPR or [...] time. Psychiatric: Comments: No anxiety or agitation [place] Symptom Assessment Score [place] Score Pain Score 0 Tiredness Score 5 [...] 64 y.o. female who was seen for [id number]-syds on 10/10/19 who is hospice appropriate with an expected prognosis of 6 months or less due to the following: Not applicable Write hospice narrative \\ * Sandie Taylor, OT - 10/13/2019 1:20 PM EDT Occupational Therapy Occupational Therapy Initial Assessment Date: 10/13/2019 Patient Name: Charlie Nguyen : 1955 Date of Service: 10/13/2019 Discharge Recommendations: Subacute/Mcc Facility, Continue to assess pending progress, LTACH [...] brain tumor 2015 Family / Caregiver Present: No Subjective Subjective: [...] (does not ambulate) Transfer Assistance: Independent Active Slime Plant Operator: No Patient's Slime Plant Operator Info: son Occupation: On disability Additional Comments: [...] attending to directions;Difficulty dividing attention Memory: Decreased skilled nursing memory;Decreased short term memory;Decreased recall of recent [...] 0-100% Score: 74.7 (10/13/19 1306) ADL Inpatient CMS G-Code Modifier : CL [...] 10/13/2019 1:20 PM EDT Physical Therapy Facility/Department: [facility] Initial Assessment NAME: Charlie Nguyen : 1955 Date of Service: 10/13/2019 Discharge Recommendations: Subacute/Mcc Facility Assessment Body structures, Functions, Activity limitations: Decreased functional mobility ;Decreased strength;Decreased endurance;Decreased cognition;Decreased ROM;Decreased ADL status Assessment: Pt admitted for being unresponsive at home. Pt NURSE RECRUITER was living alone and living in deplorable [...] diagnosis was Intentional drug overdose, initial encounter ([facility]). Diagnoses of Acute hypoxemic respiratory failure ([facility]) and Leukocytosis, unspecified type were also pertinent to this visit. has a past medical history of Anxiety, Brain tumor ([facility]), Depression, GERD (gastroesophageal refluxdisease), Headache, Ischemic colitis (HCC), and MS (multiple sclerosis) ([facility]). has a past surgical history that includes [...] (does not ambulate) Transfer Assistance: Independent Active Slime Plant Operator: No Patient's Slime Plant Operator Info: son Occupation: On disability Additional Comments: [...] attending to directions;Difficulty dividing attention Memory: Decreased skilled nursing memory;Decreased short term memory;Decreased recall of recent [...] AM-PAC Inpatient Mobility Raw Score : 6 (10/13/19 2823) AM-PAC Inpatient T-Scale Score : 23.55 (10/13/191312) [...] 17 [facility]. Goals and/or treatment plan was [...] of the pt. Room. * Nick Stover, TELEVISION DIRECTOR - 10/13/2019 9:23 AM EDT Patient Evaluation [...] 64 y.o. - 1955 Room Number - [facility]/2329 [facility] - [id number] [facility] # - [id number] Date of Admission - 10/03/2019 7:34 AM [...] Date 10/13/19 0000 - 10/13/19 2359 Shift 5564-4214 8502-9651 7902-7817 24 Hour Total INTAKE I.V.(mL/kg) 978(8) 978(8) [...] Extremities - no cyanosis, clubbing or edema BELLMAN DRIVER- awake and alert Moves all extremities Cranial [...] Questions and concerns addressed. * Kristen Burton, JIM - 10/12/2019 2:38 PM EDT Speech Language Pathology Facility/Department: [facility] CLINICAL BEDSIDE SWALLOW EVALUATION NAME: Charlie Nguyen [...] one diet consistency restricted Treatment Plan Requires EMERGENCY VETERINARIAN Intervention: Yes Duration/Frequency of Treatment: 2 visits D/C Recommendations: Inpatient rehabilitation(psych rehab suspected) Referral To: (Psych Eval, pending s/p extubation) Recommended Diet and Intervention Diet Solids Recommendation: Dental Soft Liquid Consistency Recommendation: Thin Recommended Form of Meds: PO Recommendations: Assist feed Therapeutic Interventions: Patient/Family education;Therapeutic PO trials with EMERGENCY VETERINARIAN;Diet tolerance monitoring Compensatory Swallowing Strategies Compensatory Swallowing [...] recommendations: Patient;RN Education Patient Education: Role of EMERGENCY VETERINARIAN, recommendations and need for assist Patient Education Response: Verbalizes understanding;Needs reinforcement Safety Devices in place: Yes Type of devices: Other (comment)(sitter at bedside or safety) Therapy Time EMERGENCY VETERINARIAN Individual Minutes Time In: 1338 Time Out: 1405 Minutes: 27 JIM Franz 10/12/2019 2:45 PM * Anish Reed [facility] - 10/12/2019 1:21 PM EDT [...] legally her ( 5-6 years), Brayden Nguyen ([phone]). She has 2 living adult children (Vicente [...] consult pending Multiple sclerosis/debility -follows with the [facility] as outpatient -uses wheelchair at baseline -requesting records from [facility] Palliative care encounter -DNRCCA/DNI->ordered as limited code [...] time. Psychiatric: Comments: No anxiety or agitation [place] Symptom Assessment Score [place] Score Pain Score 0 Tiredness Score 5 [...] 64 y.o. female who was seen for dguj-yr-xscl on 10/10/19 who is hospice appropriate with an expected prognosis of 6 months or less due to the following: Not applicable Write hospice narrative \\ * Renay Calix RCP - 10/12/2019 9:27 AM EDT [facility] Respiratory Care Department Progress Note Spontaneous [...] y.o. - 1955 Room Number - 232/2329 [facility] - [id number] [id number] Date of Admission - 10/03/2019 7:34 AM [...] [Urine:3800; Stool:100] Date 10/12/19 0000 - 10/12/19 235 Shift 4624-7400 1455-1122 1519-3066 24 Hour Total INTAKE Shift Total(mL/kg) OUTPUT [...] Extremities - no cyanosis, clubbing or edema BELLMAN DRIVER- intubated, mechanically ventilated awake currently Lab Results [...] hypoxia (HCC) [J96.01] Intentional drug overdose (HCC) [T50.582A] 10/03/2019 Drug overdose, multiple drugs, accidental or unintentional, initial encounter [T50.757D] 10/03/2019 Goals of care -patient lacks capacity for medical decision-making due to intubation/encephalopathy -surrogate decision-maker is legally her ( 5-6 years), Brayden Nguyen ([phone]). She has 2 living adult children (Vicente [...] consult pending Multiple sclerosis/debility -follows with the [facility] as outpatient -uses wheelchair at baseline -unclear [...] dry. Psychiatric: Comments: No anxiety or agitation [place] Symptom Assessment Score [place] Score Pain Score See FLACC Tiredness Score [...] 64 y.o. female who was seen for kpva-lq-jcps on 10/10/19 who is hospice appropriate with an expected prognosis of 6 months or less due to the following: Not applicable Write hospice narrative \\ * Devin Levine RCP - 10/11/2019 8:20 AM EDT [facility] Respiratory Care Department Progress Note Spontaneous [...] y.o. - 1955 Room Number - 232/2329 [facility] - [id number] Date of Admission - 10/03/2019 7:34 AM [...] SETTIDVOL, SETPEEP Medications propofol 50 mg/hr (10/10/19 6103) dexmedetomidine (PRECEDEX) IV infusion 1.3 mcg/kg/hr (10/11/19 [...] Extremities - no cyanosis, clubbing or edema BELLMAN DRIVER- intubated, mechanically ventilated Lab Results CBC Lab [...] far today, excluding procedures. * Louise Jay TELEVISION DIRECTOR - 10/11/2019 5:25 AM EDT 10/11/19 0520 Spontaneous Breathing Trial (SBT) RT Doc Contraindications to SBT? None (failed extubation 10/08; FiO2 borderline) Rate Measured 17 br/min Pulse 62 SpO2 96 % * Dulce Maria Chawla, RD, LD - 10/10/2019 12:46 PM EDT [...] fluid accumulation, Extremities(+2-2 pitting all ext) 6. Wash Driller Strength-Not measured Nutrition Risk Level: High Nutrient Needs: Estimated Daily Total Kcal: 7046-8698 Estimated Daily Protein (g): 79-132 Estimated Daily [...] lbs. incr 30 lbs in 11 mo? [place] Body Wt: 145 lb (65.8 kg), % [place] Body 186 Adjusted Body Wt: , body [...] Urias RCP - 10/10/2019 8:52 AM EDT [facility] Respiratory Care Department Progress Note Spontaneous [...] y.o. - 1955 Room Number - 232/2329 [facility] - [id number] [facility] [id number] Date of Admission - 10/03/2019 7:34 AM [...] Date 10/10/19 0000 - 10/10/19 2359 Shift 9416-3741 1973-5919 1644-7273 24 Hour Total INTAKE P.O.(mL/kg/hr) 0 0 [...] SETTIDVOL, SETPEEP Medications propofol 35 mg/hr (10/10/19 7350) dexmedetomidine (PRECEDEX) IV infusion 1.2 mcg/kg/hr (10/10/19 7563) ipratropium-albuterol 1 ampule Inhalation Q4H chlorhexidine 15 [...] Extremities - no cyanosis, clubbing or edema BELLMAN DRIVER- intubated, mechanically ventilated Lab Results CBC Lab [...] Weak, moist, nonproductive cough noted. Pt HOB [id number] degrees and cough/deep breathing encouraged. Bilateral soft wrist restraints removed. OG discontinued. Will continue to monitor. * Kimberli Delvalle RCP - 10/09/2019 8:57 AM EDT [facility] Respiratory Care Department Progress Note Spontaneous [...] 10/09/2019 7:09 AM EDT Critical Care Note: [facility], Pulmonary Critical Care and Sleep Medicine [address] [place] [address] Patient - Charlie Nguyen, Age - 64 y.o. - 1955 Room Number - 232/2329 [facility] - [id number] [facility] # - [id number] Date of Admission - 10/03/2019 7:34 AM [...] 1867.5 [I.V.:477.5; NG/GT:790; IV Piggyback:600] Out: 2124 [Urine:5] No data found. Drains/Tubes Outputs reviewed Lines, [...] Goodrich RCP - 10/08/2019 1:42 PM EDT [facility] Respiratory Care Department Progress Note Spontaneous [...] 10/08/2019 9:51 AM EDT Critical Care Note: [facility], Pulmonary Critical Care and Sleep Medicine [address] [place] [address] 23895 Patient - Charlie Nguyen, Age - 64 y.o. - 1955 Room Number - [address] [place], [place] [address] [facility] - [id number] [facility] # - [id number] Date of Admission - 10/03/2019 7:34 AM [...] (37.1 C) Oral 75 28 98 % 05/09/20 0602 124/74 73 (!) 31 96 % [...] Date 10/08/19 0000 - 10/08/19 2359 Shift 3916-6627 6020-4069 5719-7484 24 Hour Total INTAKE I.V.(mL/kg) 316(2.6) 316(2.6) [...] dexmedetomidine (PRECEDEX) IV infusion 1.3 mcg/kg/hr (10/08/19 7088) chlorhexidine 15 mL Mouth/Throat BID ampicillin-sulbactam 3 [...] Output 1265 ml Net 4983.18 ml 10/05 700 - 10/06 699 In: 5622.2 [I.V.:4936.2] Out: 900 [Urine:900] CVP: [...] Fluid Accumulation-Mild fluid accumulation, Extremities(+2 ble) 6. Wash Driller Strength-Not measured Nutrition Risk Level: High Nutrient Needs: Estimated Daily Total Kcal: 7885-6072 Estimated Daily Protein (g): 79-132 Estimated Daily [...] wbc 11.6,alb 2.8, ca 7.8, corrected ca8.52 n,[id number], jacinto 13:+2 ble, last bm Wound Type: Multiple(healing scabs) Current Nutrition Therapies: Oral Diet Orders: NPO Oral Diet intake: NPO Oral Nutrition Supplement (ONS) Orders: None ONS intake: NPO Anthropometric Measures: Ht: 5' 9" (175.3 cm) Current Body Wt: 270 lb (122.5 kg)( 10/02 bedscale) Admission Body Wt: Usual Body Wt: % Weight Change: , was 150 lbs in 2016; 10/2018 was 240 lbs. incr 30 lbs in 11 mo? [place] Body Wt: 145 lb (65.8 kg), % [place] Body 186 Adjusted Body Wt: , body [...] 10/05/2019 10:00 PM EDT Patient RASS -3/-4. TELEVISION STATION MANAGER aware. Patient shows signs of agitation and vent dysychrony with low dose precedex. * Tere Guevaraail - 10/05/2019 8:37 AM EDT Nutrition rescreen [...] patient did indeed make a request to M-DISC restricting future information releases. Spoke with social service on-call, she will review the chart and get back with the care team with anything of note. Jame Bocanegra - Classification Clerk documented in this encounter Assessments Diagnosis Infection [...] Hospital Course * Yamilka Yeboah, DAGOBERTO - TUNNEL HEADING SUPERVISOR - 02/03/2020 12:05 PM EDT Discharge Summary [...] FTT. She was recently admitted DC from [facility] after tx for septic arthritis. She underwent arthrotomy/poly exchange and wasdischarged to SNF/C w/IV ATB back in November. In the [...] DISCHARGE MEDICATIONS: Charlie Nguyen Home Medication Instructions LULU:[id number] Printed on:02/03/20 3279 Medication Information apixaban (ELIQUIS) 5 MG TABS [...] Complexity: follow up within 7-14 calendar days (34126) [x] Severe Complexity: follow up within 7 calendar days (05610) FOLLOW UP TESTING, PENDING RESULTS OR REFERRALS AT TRANSITIONAL CARE VISIT: [x] Yes [] No PENDING STUDIES: No DISPOSITION: SNF FACILITY/HOME CARE AGENCY NAME: [facility] Follow up with Moreno Oates INSTRUCTIONS TO [...] over cough, mental status improved. Transferred to [facility] Consults: Neurology, Critical care and Psychiatry Discharge Instructions: Follow social distancing to prevent COVID 19 disease spread, wash hands frequently with either soap and water (preferred) or hand director toxicology for atleast 20 seconds Diet: DIET GENERAL; [...] Discharge Medications: Charlie Nguyen Home Medication Instructions LULU:[id number] Printed on:10/25/19 5134 Medication Information Acetaminophen-Aspirin Buffered (EXCEDRIN BACK & BODY) 250-250 MG TABS Take 2 tablets by mouth every 6 hours as needed amoxicillin-clavulanate (AUGMENTIN) 875-125 MG per tablet Take 1 tablet by mouth every 12 hours for 2 days Blood Pressure Monitoring (B-D ASSURE BPM/AUTO ARM CUFF) [facility] Use as directed to monitor BP metoprolol [...] soon as possible for a visit [facility] [place] [address] Complexity of Follow up: [] Moderate Complexity: follow up within 7-14 calendar days (76181) [x] Severe Complexity: follow up within 7 calendar days (82394) Follow up Testing, Pending results or Referrals [...] PM This report was created using the [employer] Speaking voice- activated system. Despiteprompt dictation and [...] encounter T50.911A Acute respiratory failure with hypoxia (HCC) J96.01 Unspecified mood (affective) disorder (HCC) F39 Procedures: CVC, Intubation, CXR, Ct Cervical [...] by both psychiatry and internal medicine at [place] in the [facility] unit under Dr. Solis on 10/18/2019. [...] Discharge Medications: Charlie Nguyen Home Medication Instructions LULU:[id number] Printed on:10/18/19 1519 Medication Information Acetaminophen-Aspirin Buffered (EXCEDRIN BACK & BODY) 250-250 MG TABS Take 2 tablets by mouth every 6 hours as needed Blood Pressure Monitoring (B-D ASSURE BPM/AUTO ARM CUFF) [facility] Use as directed to monitor BP metoprolol [...] Complexity: follow up within 7-14 calendar days (47857) [x] Severe Complexity: follow up within 7 calendar days (46788) Follow up Testing, Pending results or Referrals [...] - Other Orders* Yamilka Yeboah APRN - TUNNEL HEADING SUPERVISOR - 02/03/2020 10:35 AM EDT GENERAL SIGNS [...] Call 911 Immediately * Discharge Instr - CLYDE* Delisa Guaman RN - 02/01/2020 11:50 AM EDT Continuity of Care Form Patient Name: Charlie Nguyen : 1955 Admit date: 01/27/2020 Discharge date: 02-03-20 Code Status Order: Full Code Advance Directives: Advance Care Flowsheet Documentation Date/Time Healthcare Directive Type of Healthcare Directive Copy in Chart Healthcare Agent Appointed Healthcare Agent's Name Healthcare Agent's Phone Number 01/27/20 5043 No, patient does not have an advance directive for healthcare treatment -- -- -- -- -- Admitting Physician: Tian Haro MD PCP: Moreno Oates Discharging Nurse: Delisa Guaman RN Discharging Hospital Unit/Room#: 255/2551 Discharging Unit Emergency Contact: Extended Emergency Contact Information Primary Emergency Contact: Vicente Driscoll [facility] Mobile Relation: Child Past Surgical History: Past Surgical History: Procedure Laterality Date BRONCHOSCOPY 10/06/2019 HYSTERECTOMY KNEE SURGERY Right 06/2016 TUBAL LIGATION Immunization History: Immunization History Administered Date(s) Administered Influenza Vaccine, unspecified formulation 02/15/2016 Influenza Virus Vaccine 03/24/2015 Tdap (Boostrix, Adacel) 12/06/2016 Active Problems: Patient Active Problem List Diagnosis Code Migraine G43.909 Internal derangement of right knee M23.91 Glioma ([facility]) C71.9 Hypertension I10 Chronic nonintractable headache R51 Intentional drug overdose ([facility]) T50.902A Drug overdose, multiple drugs, accidental or unintentional, initial encounter T50.911A Acute respiratory failure with hypoxia ([facility]) J96.01 Unspecified mood (affective) disorder ([facility]) F39 Palliative care encounter Z51.5 Aspiration pneumonia ([facility]) J69.0 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[facility]) T84.53XA Generalized weakness R53.1 Benzodiazepine dependence ([facility]) F13.20 Isolation/Infection: Isolation No Isolation Patient Infection [...] 10/03/19 10/03/19 10/03/19 COVID-19 (Ordered) 10/04/19 Loly Gdooy RN Nurse Assessment: Last Vital Signs: BP [...] Dependent Dressing Dependent Toileting Dependent Feeding Dependent Welder Fitter Gas Dependent Med Delivery whole Wound Care Documentation and Therapy: Wound 10/12/19 Perineum Medial Pressure ulcer, open wound/ skin tear (Active) Number of days: 111 Wound 10/22/19 Thigh Right;Medial;Anterior (Active) Number of days: 101 Wound 10/22/19 Thigh Anterior;Left;Medial (Active) Number of days: 101 Wound 01/27/20 Buttocks Anterior;Proximal;Right (Active) Wound Pressure Stage 2 09/01/20 2235 Dressing Status Other (Comment) 02/01/20 0832 [...] sent with patient): None RN SIGNATURE: BPaelizabeth BLOCK TESTER/SOCIAL WORK SECTION Inpatient Status Date: 01/30/2020 Readmission Risk Assessment Score: Readmission Risk Risk of Unplanned Readmission: 33 Discharging to Facility/ Agency Name: [facility] Address:[address] [place] [address] Dialysis Facility (if applicable) Name: Address: Dialysis Schedule: Phone: Fax: Data Warehousing Architect/Carton Forming Machine Helper signature: PHYSICIAN SECTION Prognosis: Good Condition at Discharge: Stable Rehab Potential (if transferring to Rehab): Good Recommended Labs or Other Treatments After Discharge: N/A Physician Certification: I certify the above information and transfer of Charlie Nguyen is necessaryfor the continuing treatment of the diagnosis listed and that she requires Mcc Facilityfor greater 30 days. Update Admission H&P: No change in H&P PHYSICIAN SIGNATURE: * Attachments The following attachments cannot be sent through Care Everywhere. * Knee Pain or Injury (Nauruan) documented in this encounter* Pharmacy* Fadumo Hernandez RPH - 10/04/2019 9:13 AM EDT * Discharge Instr - CLYDE* Gina Mendoza MD - 10/03/2019 4:12 PM EDT Continuity of Care Form Patient Name: Charlie Nguyen : 1955 Admit date: 10/03/2019 Discharge date: Code Status Order: Full Code Advance Directives: Admitting Physician: Rajendra Kim MD PCP: Moreno Oates Discharging Nurse: Discharging Hospital Unit/Room#: 232/2327 Discharging Unit Phone Number: Emergency Contact: Extended Emergency Contact Information Primary Emergency Contact: Vicente Driscoll [facility] Relation: Child Past Surgical History: Past [...] Status: {IP PT MENTAL STATUS:} IV Access: { CLYDE IV ACCESS:[id number]} Nursing Mobility/ADLs: Walking Dependent Transfer Dependent Bathing Dependent Dressing Dependent Toileting Dependent Feeding Dependent Welder Fitter Gas Dependent Med Delivery whole Wound Care Documentation [...] Dental Soft Routes of Feeding: Oral Liquids: {Manager Nicu liquid thickness:40913} Daily Fluid Restriction: no Last Modified Barium Swallow with Video (Video Swallowing Test): not done Treatments at the Time of Hospital Discharge: Respiratory Treatments: Oxygen Therapy: 4 LITERS NC Ventilator: - No ventilator support Rehab Therapies: {THERAPEUTIC INTERVENTION:[id number]} Weight Bearing Status/Restrictions: No weight bearing restirctions Other Medical Equipment (for information only, NOT a DME order): {EQUIPMENT:760838845} Other Treatments: Patient's personal belongings (please select all that are sent with patient): None, Dentures {DESC; UPPER/LOWER/BOTH:02387} RN SIGNATURE: CASE MANAGEMENT/SOCIAL WORK SECTION Inpatient Status Date: Readmission Risk Assessment Score: Readmission Risk Risk of Unplanned Readmission: 14 [facility] Address: [address] [place], [place] [address] ( [place] [place]) Dialysis Facility (if applicable) Name: Address: Dialysis Schedule: Phone: Fax: Data Warehousing Architect/Carton Forming Machine Helper signature: PHYSICIAN SECTION Prognosis: Good Condition at [...] of any of these drugs: Prescription medicines Lnkr-dqt-zefrsbj medicines Alcohol Illegal drugs Taking some drugs [...] Where can you learn more? Go to [email or web address] and sign in to your [employer]smak[employer] account. Enter B109 in the Search Health Information box to learn more about Use of Multiple Drugs: Care Instructions. If you do not have an account, please click on the "Sign Up Now" link. Current as of: January 19, 2019Content Version: 12.4 7411-6319 [employer]. Care instructions adapted under license by [employer] If you have questions about a medical condition or this instruction, always ask your healthcare professional. [employer] disclaims any warranty or liability for your use of this information. documented in this encounter Chief Complaint and Reason for Visit Chief Complaint HALF-WAY LABWORK HALF-WAY LABWORK HALF-WAY LABWORK HALF-WAY LABWORK HALF-WAY BLOOD WORK HALF-WAY BLOOD WORK HALF-WAY BLOOD WORK HALF-WAY BLOOD WORK HALF-WAY BLOOD WORK HALF-WAY LAB WORK HALF-WAY LAB WORK Chief Complaint HALF-WAY LABWORK HALF-WAY LABWORK HALF-WAY LABWORK HALF-WAY BLOOD WORK HALF-WAY BLOOD WORK HALF-WAY BLOOD WORK HALF-WAY BLOOD WORK HALF-WAY BLOOD WORK HALF-WAY LAB WORK HALF-WAY LAB WORK Chief Complaint HALF-WAY BLOOD W ORK HALF-WAY BLOOD WORK HALF-WAY BLOOD WORK HALF-WAY BLOOD WORK HALF-WAY LAB WORK HALF-WAY LAB WORK LABWORK Chief Complaint HALF-WAY LAB WOR K HALF-WAY LAB WORK LABWORK HALF-WAY LABWORK LABWORK Chief Complaint HALF-WAY LAB WOR K LABWORK HALF-WAY LABWORK LABWORK LABWORK LABWORK Chief Complaint LABWORK HALF-WAY LABWORK LABWORK LABWORK LABWORK HALF-WAY LABWORK Chief Complaint LABWORK LABWORK HALF-WAY LABWORK LABWORK Chief Complaint LABWORK HALF-WAY LABWORK HALF-WAY LAB WORK HALF-WAY LABWORK HALF-WAY LAB WORK HALF-WAY LAB WOKR Chief Complaint HALF-WAY LABWORK HALF-WAY LAB WORK HALF-WAY LABWORK HALF-WAY LAB WORK HALF-WAY LAB WOKR HALF-WAY LAB WORK Chief Complaint HALF-WAY LABWORK HALF-WAY LAB WORK HALF-WAY LABWORK HALF-WAY LAB WORK HALF-WAY LAB WOKR HALF-WAY LAB WORK HALF-WAY LAB WORK Chief Complaint HALF-WAY LAB WOR K HALF-WAY LAB WOKR HALF-WAY LAB WORK HALF-WAY LAB WORK HALF-WAY LABWORK HALF-WAY LAB WORK Chief Complaint HALF-WAY LAB WOR K HALF-WAY LAB WOKR HALF-WAY LAB WORK HALF-WAY LAB WORK HALF-WAY LABWORK LABWORK HALF-WAY LAB WORK Chief Complaint HALF-WAY LAB WOK R HALF-WAY LAB WORK HALF-WAY LAB WORK HALF-WAY LABWORK LABWORK HALF-WAY LAB WORK HALF-WAY LABWORK Chief Complaint HALF-WAY LAB WOR K HALF-WAY LAB WORK HALF-WAY LABWORK LABWORK HALF-WAY LAB WORK HALF-WAY LABWORK LABWORK Chief Complaint LABWORK HALF-WAY LAB WORK HALF-WAY LABWORK LABWORK HALF-WAY LABWORK HALF-WAY LABWORK Chief Complaint HALF-WAY LABWORK LABWORK HALF-WAY LABWORK HALF-WAY LABWORK HALF-WAY LAB WORK HALF-WAY LAB WORK Chief Complaint HALF-WAY LABWORK HALF-WAY LAB WORK HALF-WAY LAB WORK HALF-WAY LABWORK HALF-WAY LABWORK Chief Complaint HALF-WAY LABWORK HALF-WAY LAB WORK HALF-WAY LAB WORK HALF-WAY LABWORK HALF-WAY LABWORK HALF-WAY LABWORK Chief Complaint HALF-WAY LAB WOR K HALF-WAY LAB WORK HALF-WAY LABWORK HALF-WAY LABWORK HALF-WAY LABWORK LABWORK HALF-WAY LABWORK Chief Complaint HALF-WAY LABWORK HALF-WAY LABWORK HALF-WAY LABWORK LABWORK HALF-WAY LABWORK LABWORK Chief Complaint LABWORK HALF-WAY LABWORK LABWORK LABWORK LABWORK Chief Complaint LABWORK LABWORK LABWORK LABWORK Chief Complaint Admit Date LABWORK May 11, 2024 5:00am LABWORK July 04, 2024 5 :00am HALF-WAY LAB WORK July 12 5:00am LABWORK August 10, 2024 5:0 0am Reason for Referral Specialty Diagnoses / Procedures Referred By Contac t Referred To Contact CT IMAGING Diagnoses Pain due to internal orthopedic prosthetic devices, implants and grafts, initial encounter (HCC) Procedures CT KNEE WO IVCON LT CT LOWER EXTREMITY W/O CONTRAST MATERIAL Debbie Batista PA-C [address] [place] [address] Ct Imaging Referral ID Status Reason Start Date Expiration Date V isits Requested Visits Authorized [id number] Closed Auto-Generate d Referral 06/09/2022 05/31/2023 1 1 Additional Source Comments INFORMATION SOURCE (unrecogn ized section and content) DATE CREATED AUTHOR 11/06/2018 [facility] [place] DATE CREATED AUTHOR AUTHOR'S ORGANIZ ATION 12/22/2019 [facility] DATE CREATED AUTHOR AUTHOR'S ORGANIZ ATION 01/12/2021 [facility] DATE CREATED AUTHOR AUTHOR'S ORGANIZ ATION 03/01/2021 [facility] DATE CREATED AUTHOR AUTHOR'S ORGANIZ ATION 03/24/2022 [facility] DATE CREATED AUTHOR AUTHOR'S ORGANIZ ATION 06/16/2022 [facility] DATE CREATED AUTHOR AUTHOR'S ORGANIZ ATION 01/23/2023 [facility] DATE CREATED AUTHOR AUTHOR'S ORGANIZ ATION 07/19/2024 [facility] DATE CREATED AUTHOR AUTHOR'S ORGANIZ ATION 10/26/2024 [facility] DATE CREATED AUTHOR AUTHOR'S ORGANIZ ATION 12/11/2024 [facility] Reason for Visit (unrecogniz ed section and content) Reason Comments Joint Swelling Pt was sent in from [facility] for ortho consult to rule out septic [...] pharmacy Reason Comments Outside Lab Results from [facility] Reason Comments Orders request for sign [...] Refill Request Reason Comments Outside Lab Results [facility] Reason Comments Orders Controlled medicatio n request from [facility] Reason Comments Orders Pharmacy Recommendat ion [facility] [place] Reason Comments Orders prescription request Reason Comments Orders Medication [facility] [place] Reason Comments Refill Request [facility] Reason Comments Orders [facility] Reason Comments Refill Request Future fill from the pharmacy Reason Comments Orders [facility] Reason Comments Diagnositic mammogram and US orders Reason Onset Date Comments Opened In Error 03/18/2022 Reason Comments Orders Mammogram orders [facility] [place] Reason Comments medication orders [facility] Reason Comments Medication Request [facility] Oxycodone/apap Reason Comments Outside Labs Results [facility] Reason Comments Orders [facility] Reason Onset Date Comments Refill Request 06/25/2022 Reason Comments Patient Update [facility] [place] 07/05/22 Reason Comments Outside Lab Results [facility] 07/14/22 Reason Onset Date Comments Refill Request 07/21/2022 Reason Comments Orders Reason Onset Date Comments Refill Request 07/29/2022 Reason Comments Received Outside Medical Records [facility] Developmental Disabilities Specialty Diagnoses / Procedures Referred By Contact Referred To Contact [facility] Diagnoses Follow up CT scan left knee Procedures est patient Debbie Batista PA-C [address] [place] [address] [facility] [address] [place] [address] Referral ID Status Reason Start Date Expiration Date Visits Requested Visits Authorized [id number] Pending Review OON/Self Pay Override 07/21/2022 01/17/2023 1 1 Reason Comments Medication Request [facility] Ox ycodone apap 5-325 mg 1 tab every 6 hours Reason Comments Medication Request [facility] Reason Comments Medication Request [facility] ([facility]) Reason Comments Clinical Symptoms Reason Comments Received Outside Medical Records [facility] ([facility]) Labs Reason Comments Received Outside Medical Records [facility] ([facility] Chest x-ray 11/04/2022 Reason Comments Leg Swelling [facility] for swelling in her L ankle and discoloration in her foot. Pt denies trauma to affected extremity. Pt reports Hx blood clots in her R leg. Reason Comments Orders [facility] Patient page ving extreme pain in left leg asking for an increase in percocet to every 4 hours. Reason Comments Received Outside Medical Records [facility] Vascular Surgery 12/15/22 Reason Comments Nurse Triage Call Reason Comments Received Outside Medical Records [facility] ([facility]) Labs 12/30/2022 Reason Onset Date Comments Refill Request 01/01/2023 Reason Comments Received Outside Medical Records Lab res ults from [facility]/ [facility] Lab Reason Onset Date Comments Refill Request 01/13/2023 Reason Comments Received Outside Medical Records [facility] Lower extremity venous duplex 01/21/2023 Reason Comments Medication Request Reason Comments Received Outside Medical Records Lab res ults 02/09/23 [facility] Reason Comments Received Outside Medical Records [facility] ([facility]) Labs 04/06/2023 Reason Comments Received Outside Medical Records [facility] ([facility]) Labs 05/11/2023 Reason Onset Date Comments Refill Request 07/30/2023 Reason Onset Date Comments Refill Request 07/31/2023 Reason Comments Outside Labs Results [facility]/ [facility] Reason Comments Received Outside Medical Records [facility] Order to increase Zofran from 4 mg to 8 mg Q8 hr prn Reason Onset Date Comments Refill Request 09/25/2023 Reason Onset Date Comments Refill Request 10/07/2023 Reason Comments Outside Lab Results [facility] 10/12/23 Reason Onset Date Comments Refill Request 10/27/2023 Reason Comments Received Outside Medical Records [facility] 11/09/2023 Reason Onset Date Comments Refill Request 12/30/2023 Reason Onset Date Comments Refill Request 01/27/2024 Reason Comments [facility] RMP Specialty Diagnoses / Procedures Referred By Contac t Referred To Contact XR IMAGING Diagnoses Status post total left knee replacement Procedures XR KNEE POST OP 3V AP/LAT/MERCHANT LEFT RADIOLOGIC EXAMINATION KNEE 3 VIEWS Debbie Batista PA-C [address] [facility] [place] [id number] [place] [id number] Referral ID Status Reason Start Date Expiration Date V isits Requested Visits Authorized [id number] Closed Auto-Generated Referral Financial Clearance Not Required 05/21/2022 06/20/2023 1 1 Reason Onset Date Comments Refill Request 02/26/2024 Reason Onset Date Comments Opened In Error 02/29/2024 Reason Comments Orders [facility] Reason Onset Date Comments Refill Request 03/24/2024 Reason Onset Date Comments Refill Request 03/25/2024 Reason Onset Date Comments Refill Request 03/31/2024 Reason Comments Received Outside Medical Records [facility] 04/11/2024 Reason Onset Date Comments Refill Request 04/22/2024 Reason Onset Date Comments Refill Request 04/21/2024 Reason Onset Date Comments Refill Request 05/23/2024 Reason Onset Date Comments Refill Request 06/23/2024 Reason Comments Received Outside Medical Records [facility] ([facility]) Labs 07/12/2024 Reason Onset Date Comments Refill [...] 2318 (New Bag - Provider: Nathaly Miller, JENN)2348 (Stopped - Provider: Serenity Coyne RN) oxyCODONE-acetaminophen (PERCOCET) 5-325 MG per [...] 1915 1931 (New Bag - Provider: Chantal Walton RN)2239 (Stopped - Provider: Delmy Lawson RN) sodium [...] mg from all sources in 24 hours. 09 (Given - Provid er: Kelvin Grajeda RN) [...] or prosecute any alcohol or drug abuse patient.[facility] the event this information is protected by the Federal Confidentiality of Alcohol and Drug Abuse Patient Records regulations: The Federal rules restrict any use of the information to criminally investigate or prosecute any alcohol or drug abuse patient.[facility] the event this information is protected by the Federal Confidentiality of Alcohol and Drug Abuse Patient Records regulations: The Federal rules restrict any use of the information to criminally investigate or prosecute any alcohol or drug abuse patient.[facility] the event this information is protected by the Federal Confidentiality of Alcohol and Drug Abuse Patient Records regulations: The Federal rules restrict any use of the information to criminally investigate or prosecute any alcohol or drug abuse patient.[facility] Center[facility] the event this information is protected by the Federal Confidentiality of Alcohol and Drug Abuse Patient Records regulations: The Federal rules restrict any use of the information to criminally investigate or prosecute any alcohol or drug abuse patient.[facility] CenterIn the event this information is protected by the Federal Confidentiality of Alcohol and Drug Abuse Patient Records regulations: The Federal rules restrict any use of the information to criminally investigate or prosecute any alcohol or drug abuse patient.[facility] CenterIn the event this information is protected by the Federal Confidentiality of Alcohol and Drug Abuse Patient Records regulations: The Federal rules restrict any use of the information to criminally investigate or prosecute any alcohol or drug abuse patient.[facility] CenterIn the event this information is protected by the Federal Confidentiality of Alcohol and Drug Abuse Patient Records regulations: The Federal rules restrict any use of the information to criminally investigate or prosecute any alcohol or drug abuse patient.[facility] CenterIn the event this information is protected by the Federal Confidentiality of Alcohol and Drug Abuse Patient Records regulations: The Federal rules restrict any use of the information to criminally investigate or prosecute any alcohol or drug abuse patient.[facility] CenterIn the event this information is protected by the Federal Confidentiality of Alcohol and Drug Abuse Patient Records regulations: The Federal rules restrict any use of the information to criminally investigate or prosecute any alcohol or drug abuse patient.[facility] CenterIn the event this information is protected by the Federal Confidentiality of Alcohol and Drug Abuse Patient Records regulations: The Federal rules restrict any use of the information to criminally investigate or prosecute any alcohol or drug abuse patient.[facility] CenterIn the event this information is protected by the Federal Confidentiality of Alcohol and Drug Abuse Patient Records regulations: The Federal rules restrict any use of the information to criminally investigate or prosecute any alcohol or drug abuse patient.[facility] CenterIn the event this information is protected by the Federal Confidentiality of Alcohol and Drug Abuse Patient Records regulations: The Federal rules restrict any use of the information to criminally investigate or prosecute any alcohol or drug abuse patient.[facility] CenterIn the event this information is protected by the Federal Confidentiality of Alcohol and Drug Abuse Patient Records regulations: The Federal rules restrict any use of the information to criminally investigate or prosecute any alcohol or drug abuse patient.[facility] CenterIn the event this information is protected by the Federal Confidentiality of Alcohol and Drug Abuse Patient Records regulations: The Federal rules restrict any use of the information to criminally investigate or prosecute any alcohol or drug abuse patient.[facility] CenterIn the event this information is protected by the Federal Confidentiality of Alcohol and Drug Abuse Patient Records regulations: The Federal rules restrict any use of the information to criminally investigate or prosecute any alcohol or drug abuse patient.[facility] CenterIn the event this information is protected by the Federal Confidentiality of Alcohol and Drug Abuse Patient Records regulations: The Federal rules restrict any use of the information to criminally investigate or prosecute any alcohol or drug abuse patient.[facility] CenterIn the event this information is protected by the Federal Confidentiality of Alcohol and Drug Abuse Patient Records regulations: The Federal rules restrict any use of the information to criminally investigate or prosecute any alcohol or drug abuse patient.[facility] CenterIn the event this information is protected by the Federal Confidentiality of Alcohol and Drug Abuse Patient Records regulations: The Federal rules restrict any use of the information to criminally investigate or prosecute any alcohol or drug abuse patient.[facility] the event this information is protected by the Federal Confidentiality of Alcohol and Drug Abuse Patient Records regulations: The Federal rules restrict any use of the information to criminally investigate or prosecute any alcohol or drug abuse patient.[facility] CenterIn the event this information is protected by the Federal Confidentiality of Alcohol and Drug Abuse Patient Records regulations: The Federal rules restrict any use of the information to criminally investigate or prosecute any alcohol or drug abuse patient.[facility] CenterIn the event this information is protected by the Federal Confidentiality of Alcohol and Drug Abuse Patient Records regulations: The Federal rules restrict any use of the information to criminally investigate or prosecute any alcohol or drug abuse patient.[facility] the event this information is protected by the Federal Confidentiality of Alcohol and Drug Abuse Patient Records regulations: The Federal rules restrict any use of the information to criminally investigate or prosecute any alcohol or drug abuse patient.[facility] CenterIn the event this information is protected by the Federal Confidentiality of Alcohol and Drug Abuse Patient Records regulations: The Federal rules restrict any use of the information to criminally investigate or prosecute any alcohol or drug abuse patient.[facility] CenterIn the event this information is protected by the Federal Confidentiality of Alcohol and Drug Abuse Patient Records regulations: The Federal rules restrict any use of the information to criminally investigate or prosecute any alcohol or drug abuse patient.[facility] CenterIn the event this information is protected by the Federal Confidentiality of Alcohol and Drug Abuse Patient Records regulations: The Federal rules restrict any use of the information to criminally investigate or prosecute any alcohol or drug abuse patient.[facility] CenterIn the event this information is protected by the Federal Confidentiality of Alcohol and Drug Abuse Patient Records regulations: The Federal rules restrict any use of the information to criminally investigate or prosecute any alcohol or drug abuse patient.[facility] CenterIn the event this information is protected by the Federal Confidentiality of Alcohol and Drug Abuse Patient Records regulations: The Federal rules restrict any use of the information to criminally investigate or prosecute any alcohol or drug abuse patient.[facility] CenterIn the event this information is protected by the Federal Confidentiality of Alcohol and Drug Abuse Patient Records regulations: The Federal rules restrict any use of the information to criminally investigate or prosecute any alcohol or drug abuse patient.[facility] CenterIn the event this information is protected by the Federal Confidentiality of Alcohol and Drug Abuse Patient Records regulations: The Federal rules restrict any use of the information to criminally investigate or prosecute any alcohol or drug abuse patient.[facility] CenterIn the event this information is protected by the Federal Confidentiality of Alcohol and Drug Abuse Patient Records regulations: The Federal rules restrict any use of the information to criminally investigate or prosecute any alcohol or drug abuse patient.[facility] CenterIn the event this information is protected by the Federal Confidentiality of Alcohol and Drug Abuse Patient Records regulations: The Federal rules restrict any use of the information to criminally investigate or prosecute any alcohol or drug abuse patient.[facility] CenterIn the event this information is protected by the Federal Confidentiality of Alcohol and Drug Abuse Patient Records regulations: The Federal rules restrict any use of the information to criminally investigate or prosecute any alcohol or drug abuse patient.[facility] CenterIn the event this information is protected by the Federal Confidentiality of Alcohol and Drug Abuse Patient Records regulations: The Federal rules restrict any use of the information to criminally investigate or prosecute any alcohol or drug abuse patient.[facility] CenterIn the event this information is protected by the Federal Confidentiality of Alcohol and Drug Abuse Patient Records regulations: The Federal rules restrict any use of the information to criminally investigate or prosecute any alcohol or drug abuse patient.[facility] CenterIn the event this information is protected by the Federal Confidentiality of Alcohol and Drug Abuse Patient Records regulations: The Federal rules restrict any use of the information to criminally investigate or prosecute any alcohol or drug abuse patient.[facility] CenterIn the event this information is protected by the Federal Confidentiality of Alcohol and Drug Abuse Patient Records regulations: The Federal rules restrict any use of the information to criminally investigate or prosecute any alcohol or drug abuse patient.[facility] CenterIn the event this information is protected by the Federal Confidentiality of Alcohol and Drug Abuse Patient Records regulations: The Federal rules restrict any use of the information to criminally investigate or prosecute any alcohol or drug abuse patient.[facility] CenterIn the event this information is protected by the Federal Confidentiality of Alcohol and Drug Abuse Patient Records regulations: The Federal rules restrict any use of the information to criminally investigate or prosecute any alcohol or drug abuse patient.[facility] CenterIn the event this information is protected by the Federal Confidentiality of Alcohol and Drug Abuse Patient Records regulations: The Federal rules restrict any use of the information to criminally investigate or prosecute any alcohol or drug abuse patient.[facility] CenterIn the event this information is protected by the Federal Confidentiality of Alcohol and Drug Abuse Patient Records regulations: The Federal rules restrict any use of the information to criminally investigate or prosecute any alcohol or drug abuse patient.[facility] CenterIn the event this information is protected by the Federal Confidentiality of Alcohol and Drug Abuse Patient Records regulations: The Federal rules restrict any use of the information to criminally investigate or prosecute any alcohol or drug abuse patient.[facility] CenterIn the event this information is protected by the Federal Confidentiality of Alcohol and Drug Abuse Patient Records regulations: The Federal rules restrict any use of the information to criminally investigate or prosecute any alcohol or drug abuse patient.[facility] CenterIn the event this information is protected by the Federal Confidentiality of Alcohol and Drug Abuse Patient Records regulations: The Federal rules restrict any use of the information to criminally investigate or prosecute any alcohol or drug abuse patient.[facility] CenterIn the event this information is protected by the Federal Confidentiality of Alcohol and Drug Abuse Patient Records regulations: The Federal rules restrict any use of the information to criminally investigate or prosecute any alcohol or drug abuse patient.[facility] CenterIn the event this information is protected by the Federal Confidentiality of Alcohol and Drug Abuse Patient Records regulations: The Federal rules restrict any use of the information to criminally investigate or prosecute any alcohol or drug abuse patient.[facility] CenterIn the event this information is protected by the Federal Confidentiality of Alcohol and Drug Abuse Patient Records regulations: The Federal rules restrict any use of the information to criminally investigate or prosecute any alcohol or drug abuse patient.[facility] CenterIn the event this information is protected by the Federal Confidentiality of Alcohol and Drug Abuse Patient Records regulations: The Federal rules restrict any use of the information to criminally investigate or prosecute any alcohol or drug abuse patient.[facility] CenterIn the event this information is protected by the Federal Confidentiality of Alcohol and Drug Abuse Patient Records regulations: The Federal rules restrict any use of the information to criminally investigate or prosecute any alcohol or drug abuse patient.[facility] CenterIn the event this information is protected by the Federal Confidentiality of Alcohol and Drug Abuse Patient Records regulations: The Federal rules restrict any use of the information to criminally investigate or prosecute any alcohol or drug abuse patient.[facility] CenterIn the event this information is protected by the Federal Confidentiality of Alcohol and Drug Abuse Patient Records regulations: The Federal rules restrict any use of the information to criminally investigate or prosecute any alcohol or drug abuse patient.[facility] CenterIn the event this information is protected by the Federal Confidentiality of Alcohol and Drug Abuse Patient Records regulations: The Federal rules restrict any use of the information to criminally investigate or prosecute any alcohol or drug abuse patient.[facility] CenterIn the event this information is protected by the Federal Confidentiality of Alcohol and Drug Abuse Patient Records regulations: The Federal rules restrict any use of the information to criminally investigate or prosecute any alcohol or drug abuse patient.[facility] CenterIn the event this information is protected by the Federal Confidentiality of Alcohol and Drug Abuse Patient Records regulations: The Federal rules restrict any use of the information to criminally investigate or prosecute any alcohol or drug abuse patient.[facility] CenterIn the event this information is protected by the Federal Confidentiality of Alcohol and Drug Abuse Patient Records regulations: The Federal rules restrict any use of the information to criminally investigate or prosecute any alcohol or drug abuse patient.[facility] CenterIn the event this information is protected by the Federal Confidentiality of Alcohol and Drug Abuse Patient Records regulations: The Federal rules restrict any use of the information to criminally investigate or prosecute any alcohol or drug abuse patient.[facility] CenterIn the event this information is protected by the Federal Confidentiality of Alcohol and Drug Abuse Patient Records regulations: The Federal rules restrict any use of the information to criminally investigate or prosecute any alcohol or drug abuse patient.[facility] CenterIn the event this information is protected by the Federal Confidentiality of Alcohol and Drug Abuse Patient Records regulations: The Federal rules restrict any use of the information to criminally investigate or prosecute any alcohol or drug abuse patient.[facility] CenterIn the event this information is protected by the Federal Confidentiality of Alcohol and Drug Abuse Patient Records regulations: The Federal rules restrict any use of the information to criminally investigate or prosecute any alcohol or drug abuse patient.[facility] CenterIn the event this information is protected by the Federal Confidentiality of Alcohol and Drug Abuse Patient Records regulations: The Federal rules restrict any use of the information to criminally investigate or prosecute any alcohol or drug abuse patient.[facility] CenterIn the event this information is protected by the Federal Confidentiality of Alcohol and Drug Abuse Patient Records regulations: The Federal rules restrict any use of the information to criminally investigate or prosecute any alcohol or drug abuse patient.[facility] CenterIn the event this information is protected by the Federal Confidentiality of Alcohol and Drug Abuse Patient Records regulations: The Federal rules restrict any use of the information to criminally investigate or prosecute any alcohol or drug abuse patient.[facility] CenterIn the event this information is protected by the Federal Confidentiality of Alcohol and Drug Abuse Patient Records regulations: The Federal rules restrict any use of the information to criminally investigate or prosecute any alcohol or drug abuse patient.[facility] CenterIn the event this information is protected by the Federal Confidentiality of Alcohol and Drug Abuse Patient Records regulations: The Federal rules restrict any use of the information to criminally investigate or prosecute any alcohol or drug abuse patient.[facility] CenterIn the event this information is protected by the Federal Confidentiality of Alcohol and Drug Abuse Patient Records regulations: The Federal rules restrict any use of the information to criminally investigate or prosecute any alcohol or drug abuse patient.[facility] CenterIn the event this information is protected by the Federal Confidentiality of Alcohol and Drug Abuse Patient Records regulations: The Federal rules restrict any use of the information to criminally investigate or prosecute any alcohol or drug abuse patient.[facility] CenterIn the event this information is protected by the Federal Confidentiality of Alcohol and Drug Abuse Patient Records regulations: The Federal rules restrict any use of the information to criminally investigate or prosecute any alcohol or drug abuse patient.[facility] CenterIn the event this information is protected by the Federal Confidentiality of Alcohol and Drug Abuse Patient Records regulations: The Federal rules restrict any use of the information to criminally investigate or prosecute any alcohol or drug abuse patient.[facility] CenterIn the event this information is protected by the Federal Confidentiality of Alcohol and Drug Abuse Patient Records regulations: The Federal rules restrict any use of the information to criminally investigate or prosecute any alcohol or drug abuse patient.[facility] the event this information is protected by the Federal Confidentiality of Alcohol and Drug Abuse Patient Records regulations: The Federal rules restrict any use of the information to criminally investigate or prosecute any alcohol or drug abuse patient.[facility] CenterIn the event this information is protected by the Federal Confidentiality of Alcohol and Drug Abuse Patient Records regulations: The Federal rules restrict any use of the information to criminally investigate or prosecute any alcohol or drug abuse patient.[facility] CenterIn the event this information is protected by the Federal Confidentiality of Alcohol and Drug Abuse Patient Records regulations: The Federal rules restrict any use of the information to criminally investigate or prosecute any alcohol or drug abuse patient.[facility] the event this information is protected by the Federal Confidentiality of Alcohol and Drug Abuse Patient Records regulations: The Federal rules restrict any use of the information to criminally investigate or prosecute any alcohol or drug abuse patient.[facility] CenterIn the event this information is protected by the Federal Confidentiality of Alcohol and Drug Abuse Patient Records regulations: The Federal rules restrict any use of the information to criminally investigate or prosecute any alcohol or drug abuse patient.[facility] CenterIn the event this information is protected by the Federal Confidentiality of Alcohol and Drug Abuse Patient Records regulations: The Federal rules restrict any use of the information to criminally investigate or prosecute any alcohol or drug abuse patient.[facility] CenterIn the event this information is protected by the Federal Confidentiality of Alcohol and Drug Abuse Patient Records regulations: The Federal rules restrict any use of the information to criminally investigate or prosecute any alcohol or drug abuse patient.[facility] CenterIn the event this information is protected by the Federal Confidentiality of Alcohol and Drug Abuse Patient Records regulations: The Federal rules restrict any use of the information to criminally investigate or prosecute any alcohol or drug abuse patient.[facility] CenterIn the event this information is protected by the Federal Confidentiality of Alcohol and Drug Abuse Patient Records regulations: The Federal rules restrict any use of the information to criminally investigate or prosecute any alcohol or drug abuse patient.[facility] CenterIn the event this information is protected by the Federal Confidentiality of Alcohol and Drug Abuse Patient Records regulations: The Federal rules restrict any use of the information to criminally investigate or prosecute any alcohol or drug abuse patient.[facility] CenterIn the event this information is protected by the Federal Confidentiality of Alcohol and Drug Abuse Patient Records regulations: The Federal rules restrict any use of the information to criminally investigate or prosecute any alcohol or drug abuse patient.[facility] CenterIn the event this information is protected by the Federal Confidentiality of Alcohol and Drug Abuse Patient Records regulations: The Federal rules restrict any use of the information to criminally investigate or prosecute any alcohol or drug abuse patient.[facility] CenterIn the event this information is protected by the Federal Confidentiality of Alcohol and Drug Abuse Patient Records regulations: The Federal rules restrict any use of the information to criminally investigate or prosecute any alcohol or drug abuse patient.[facility] CenterIn the event this information is protected by the Federal Confidentiality of Alcohol and Drug Abuse Patient Records regulations: The Federal rules restrict any use of the information to criminally investigate or prosecute any alcohol or drug abuse patient.[facility] CenterIn the event this information is protected by the Federal Confidentiality of Alcohol and Drug Abuse Patient Records regulations: The Federal rules restrict any use of the information to criminally investigate or prosecute any alcohol or drug abuse patient.[facility] CenterIn the event this information is protected by the Federal Confidentiality of Alcohol and Drug Abuse Patient Records regulations: The Federal rules restrict any use of the information to criminally investigate or prosecute any alcohol or drug abuse patient.[facility] CenterIn the event this information is protected by the Federal Confidentiality of Alcohol and Drug Abuse Patient Records regulations: The Federal rules restrict any use of the information to criminally investigate or prosecute any alcohol or drug abuse patient.[facility] CenterIn the event this information is protected by the Federal Confidentiality of Alcohol and Drug Abuse Patient Records regulations: The Federal rules restrict any use of the information to criminally investigate or prosecute any alcohol or drug abuse patient.[facility] CenterIn the event this information is protected by the Federal Confidentiality of Alcohol and Drug Abuse Patient Records regulations: The Federal rules restrict any use of the information to criminally investigate or prosecute any alcohol or drug abuse patient.[facility] CenterIn the event this information is protected by the Federal Confidentiality of Alcohol and Drug Abuse Patient Records regulations: The Federal rules restrict any use of the information to criminally investigate or prosecute any alcohol or drug abuse patient.[facility] CenterIn the event this information is protected by the Federal Confidentiality of Alcohol and Drug Abuse Patient Records regulations: The Federal rules restrict any use of the information to criminally investigate or prosecute any alcohol or drug abuse patient.[facility] CenterIn the event this information is protected by the Federal Confidentiality of Alcohol and Drug Abuse Patient Records regulations: The Federal rules restrict any use of the information to criminally investigate or prosecute any alcohol or drug abuse patient.[facility] CenterIn the event this information is protected by the Federal Confidentiality of Alcohol and Drug Abuse Patient Records regulations: The Federal rules restrict any use of the information to criminally investigate or prosecute any alcohol or drug abuse patient.[facility] CenterIn the event this information is protected by the Federal Confidentiality of Alcohol and Drug Abuse Patient Records regulations: The Federal rules restrict any use of the information to criminally investigate or prosecute any alcohol or drug abuse patient.[facility] CenterIn the event this information is protected by the Federal Confidentiality of Alcohol and Drug Abuse Patient Records regulations: The Federal rules restrict any use of the information to criminally investigate or prosecute any alcohol or drug abuse patient.[facility] CenterIn the event this information is protected by the Federal Confidentiality of Alcohol and Drug Abuse Patient Records regulations: The Federal rules restrict any use of the information to criminally investigate or prosecute any alcohol or drug abuse patient.[facility] CenterIn the event this information is protected by the Federal Confidentiality of Alcohol and Drug Abuse Patient Records regulations: The Federal rules restrict any use of the information to criminally investigate or prosecute any alcohol or drug abuse patient.[facility] CenterIn the event this information is protected by the Federal Confidentiality of Alcohol and Drug Abuse Patient Records regulations: The Federal rules restrict any use of the information to criminally investigate or prosecute any alcohol or drug abuse patient.[facility] CenterIn the event this information is protected by the Federal Confidentiality of Alcohol and Drug Abuse Patient Records regulations: The Federal rules restrict any use of the information to criminally investigate or prosecute any alcohol or drug abuse patient.[facility] CenterIn the event this information is protected by the Federal Confidentiality of Alcohol and Drug Abuse Patient Records regulations: The Federal rules restrict any use of the information to criminally investigate or prosecute any alcohol or drug abuse patient.[facility] CenterIn the event this information is protected by the Federal Confidentiality of Alcohol and Drug Abuse Patient Records regulations: The Federal rules restrict any use of the information to criminally investigate or prosecute any alcohol or drug abuse patient.[facility] CenterIn the event this information is protected by the Federal Confidentiality of Alcohol and Drug Abuse Patient Records regulations: The Federal rules restrict any use of the information to criminally investigate or prosecute any alcohol or drug abuse patient.[facility] CenterIn the event this information is protected by the Federal Confidentiality of Alcohol and Drug Abuse Patient Records regulations: The Federal rules restrict any use of the information to criminally investigate or prosecute any alcohol or drug abuse patient.[facility] CenterIn the event this information is protected by the Federal Confidentiality of Alcohol and Drug Abuse Patient Records regulations: The Federal rules restrict any use of the information to criminally investigate or prosecute any alcohol or drug abuse patient.[facility] CenterIn the event this information is protected by the Federal Confidentiality of Alcohol and Drug Abuse Patient Records regulations: The Federal rules restrict any use of the information to criminally investigate or prosecute any alcohol or drug abuse patient.[facility] CenterIn the event this information is protected by the Federal Confidentiality of Alcohol and Drug Abuse Patient Records regulations: The Federal rules restrict any use of the information to criminally investigate or prosecute any alcohol or drug abuse patient.[facility] CenterIn the event this information is protected by the Federal Confidentiality of Alcohol and Drug Abuse Patient Records regulations: The Federal rules restrict any use of the information to criminally investigate or prosecute any alcohol or drug abuse patient.[facility] CenterIn the event this information is protected by the Federal Confidentiality of Alcohol and Drug Abuse Patient Records regulations: The Federal rules restrict any use of the information to criminally investigate or prosecute any alcohol or drug abuse patient.[facility] CenterIn the event this information is protected by the Federal Confidentiality of Alcohol and Drug Abuse Patient Records regulations: The Federal rules restrict any use of the information to criminally investigate or prosecute any alcohol or drug abuse patient.[facility] CenterIn the event this information is protected by the Federal Confidentiality of Alcohol and Drug Abuse Patient Records regulations: The Federal rules restrict any use of the information to criminally investigate or prosecute any alcohol or drug abuse patient.[facility] CenterIn the event this information is protected by the Federal Confidentiality of Alcohol and Drug Abuse Patient Records regulations: The Federal rules restrict any use of the information to criminally investigate or prosecute any alcohol or drug abuse patient.[facility] CenterIn the event this information is protected by the Federal Confidentiality of Alcohol and Drug Abuse Patient Records regulations: The Federal rules restrict any use of the information to criminally investigate or prosecute any alcohol or drug abuse patient.[facility] Care Teams (unrecognized sec tion and content) Team Status: Inactive Member Role Status Dates Ender RICKS MD Attending Provider Active Team Status: Active Member Role Status Dates Ender RICKS MD Attending Provider Active Team Status: Inactive Member Role Status Dates Ender RICKS MD Attending Provider, Referring Stuart venegas Active Broadcast Technician Relationship Specialty Start Date End Date Moreno Oates MD [address] [place], [place] [id number] PCP - General Family Practice 02/13/[address] [id number] 11/17/06 Moreno Oates MD [address] [facility] [address] [place], [place] [id number] Home Care Physician Family Practice 11/29/19 Moreno Oates MD [address] [place] [address] Referring Family Practice 11/29/19 Sanjana Tarango MD [address] [facility] [place] [address] Consulting Infectious Diseases 11/29/19 Broadcast Technician Relationship Specialty Start Date End Date Moreno Oates MD [address] [place], [place] [id number] PCP - General Family Practice 02/13/16 Lamonte Weber [address] [place], [place] [id number] 11/17/06 Moreno Oates MD [address] [facility] [address] [place], [place] [address] Home Care Physician Family Practice 11/29/19 Moreno Oates MD [address] [place] [address] Referring Family Practice 11/29/19 Sanjana Tarango MD [address] [facility] [address] [place], [place] [id number] Consulting Infectious Diseases 11/29/19 Broadcast Technician Relationship Specialty Start Date End Date Moreno Oates MD [address] [place], [place] [id number] PCP - General Family Practice 02/13/16 Lamonte Weberoy [address] [place] [address] 11/17/06 Moreno Oates MD [address] [place] [address] Home Care Physician Family Practice 11/29/19 Moreno Oates MD [address] [place] [address] Referring Family Practice 11/29/19 Sanjana Tarango MD [address] [facility] [address] [place] [address] Consulting Infectious Diseases 11/29/19 Broadcast Technician Relationship Specialty Start Date End Date Moreno Oates MD [address] [place], [place] [id number] PCP - General Family Practice 02/13/16 Lamonte Weber [address] [place] [address] 11/17/06 Moreno Oates MD [address] [facility] [address] [place], [place] [address] Home Care Physician Family Practice 11/29/19 Moreno Oates MD [address] [place] [address] Referring Family Practice 11/29/19 Sanjana Tarango MD [address] [facility] [address] [place], [place] [id number] Consulting Infectious Diseases 11/29/19 Broadcast Technician Relationship Specialty Start Date End Date Moreno Oates MD [address] [place], [place] [id number] PCP - General Family Practice 02/13/16 [address] [address] 11/17/06 Moreno Oates MD [address] [place] [place] [address] Home Care Physician Family Practice 11/29/19 Moreno Oates MD [address] [facility] [place] [place] [address] Referring Family Practice 11/29/19 Sanjana Tarango MD [address] [facility] [address] [place] [address] Consulting Infectious Diseases 11/29/19 Broadcast Technician Relationship Specialty Start Date End Date Moreno Oates MD [address] [place], [place] [id number] PCP - General Family Practice 02/13/16 Lamonte [place] [address] 11/17/06 Moreno Oates MD [address] [facility] [address] [place], [place] [address] Home Care Physician Family Practice 11/29/19 Moreno Oates MD [address] [place] [address] Referring Family Practice 11/29/19 Sanjana Tarango MD [address] [facility] [address] [place] [address] Consulting Infectious Diseases 11/29/19 Broadcast Technician Relationship Specialty Start Date End Date Moreno Oates MD [address] [place], [place] [address] PCP - General Family Practice 02/13/16 Lamonte Weber [address] [address] 11/17/06 Moreno Oates MD [address] [place] [address] Home Care Physician Family Practice 11/29/19 Moreno Oates MD [address] [facility] [place] [place] [address] Referring Family Practice 11/29/19 Sanjana Tarango MD [address] [facility] [address] [place] [address] Consulting Infectious Diseases 11/29/19 Broadcast Technician Relationship Specialty Start Date End Date Moreno Oates MD [address] [place], [place] [id number] PCP - General Family Practice 02/13/16 Lam[place] [address] 11/17/06 Moreno Oates MD [address] [place] [address] Home Care Physician Family Practice 11/29/19 Moreno Oates MD [address] [place] [address] Referring Family Practice 11/29/19 Sanjana Tarango MD [address] [facility] [address] [place] [address] Consulting Infectious Diseases 11/29/19 Broadcast Technician Relationship Specialty Start Date End Date Moreno Oates MD [address] [place], [place] [id number] PCP - General Family Practice 02/13/16 Lamonte Weber [address] [place] [address] 11/17/06 Moreno Oates MD [address] [place] [address] Home Care Physician Family Practice 11/29/19 Moreno Oates MD [address] [facility] [place] [place] [address] Referring Family Practice 11/29/19 Sanjana Tarango MD [address] [facility] [address] [facility] [address] [place] [address] Consulting Infectious Diseases 11/29/19 Broadcast Technician Relationship Specialty Start Date End Date Moreno Oates MD [address] [place], [place] [id number] PCP - General Family Practice 02/13/16 Lam[place] [address] 11/17/06 Moreno Oates MD [address] [place] [address] Home Care Physician Family Practice 11/29/19 Moreno Oates MD [address] [facility] [place] [address] Referring Family Practice 11/29/19 Sanjana Tarango MD [address] [facility] [address] [address] Consulting Infectious Diseases 11/29/19 Broadcast Technician Relationship Specialty Start Date End Date Moreno Oates MD [address] [place], [place] [address] PCP - General Family Practice 02/13/[address] [address] 11/17/06 Moreno Oates MD [address] [place] [address] Home Care Provider Family Practice 11/29/19 Moreno Oates MD [address] [facility] [place] [place] [address] Referring Family Practice 11/29/19 Sanjana Tarango MD [address] [facility] [address] [address] Consulting Infectious Diseases 11/29/19 Broadcast Technician Relationship Specialty Start Date End Date Moreno Oates MD [address] [place], [place] [id number] PCP - General Family Practice 02/13/16 Lamonte Weber [address] [place] [address] 11/17/06 Moreno Oates MD [address] [facility] [place] [address] Home Care Provider Family Practice 11/29/19 Moreno Oates MD [address] [facility] [place] [address] Referring Family Practice 11/29/19 Sanjana Tarango MD 3609 [facility] [address] [address] Consulting Infectious Diseases 11/29/19 Broadcast Technician Relationship Specialty Start Date End Date Moreno Oates MD [address] [place], [place] 578441 PCP - General Family Medicine 02/13/16 Lamonte Weber [address] [place] [address] 11/17/06 Moreno Oates MD [address] [facility] [place] [address] Home Care Provider Family Medicine 11/29/19 Moreno Oates MD [address] [facility] [place] [address] Referring Family Medicine 11/29/19 Sanjana Tarango MD 3607 [facility] [address] [address] Consulting Infectious Diseases 11/29/19 Broadcast Technician Relationship Specialty Start Date End Date Moreno Oates MD [address] [place], [place] [id number] PCP - General Family Medicine 02/13/16 [place] [address] 11/17/06 Moreno Oates MD [address] [facility] [place] [address] Home Care Provider Family Medicine 11/29/19 Moreno Oates MD [address] [facility] [place] [address] Referring Family Medicine 11/29/19 Sanjana Tarango MD 3609 [facility] [address] [address] Consulting Infectious Diseases 11/29/19 Broadcast Technician Relationship Specialty Start Date End Date Moreno Oates MD [address] [place], [place] 391441 PCP - General Family Medicine 02/13/16 Lamonte Weber [address] [place] [address] 11/17/06 Moreno Oates MD [address] [facility] [place] [address] Home Care Provider Family Medicine 11/29/19 Moreno Oates MD [address] [facility] [place] [address] Referring Family Medicine 11/29/19 Sanjana Tarango MD 3603 [facility] [address] [address] Consulting Infectious Diseases 11/29/19 Broadcast Technician Relationship Specialty Start Date End Date Moreno Oates MD [address] [place], [place] [id number] PCP - General Family Medicine 02/13/16 Lam[place] [address] 11/17/06 Moreno Oates MD [address] [facility] [place] [address] Home Care Provider Family Medicine 11/29/19 Moreno Oates MD [address] [facility] [place] [address] Referring Family Medicine 11/29/19 Sanjana Tarango MD 3605 [facility] [address] [address] Consulting Infectious Diseases 11/29/19 Broadcast Technician Relationship Specialty Start Date End Date Moreno Oates MD [address] [place], [place] [id number] PCP - General Family Medicine 02/13/16 Lamonte Weber [address] [place] [address] 11/17/06 Moreno Oates MD [address] [facility] [place] [address] Home Care Provider Family Medicine 11/29/19 Moreno Oates MD [address] [facility] [place] [address] Referring Family Medicine 11/29/19 Sanjana Tarango MD 3606 [facility] [address] [address] Consulting Infectious Diseases 11/29/19 Broadcast Technician Relationship Specialty Start Date End Date Moreno Oates MD [address] [place], [place] [id number] PCP - General Family Medicine 02/13/16 Lamonte [place] [address] 11/17/06 Moreno Oates MD [address] [facility] [place] [address] Home Care Provider Family Medicine 11/29/19 Moreno Oates MD [address] [facility] [place] [address] Referring Family Medicine 11/29/19 Sanjana Tarango MD [address] [facility] [address] MER[facility] [address] [place] [address] Consulting Infectious Diseases 11/29/19 Broadcast Technician Relationship Specialty Start Date End Date Moreno Oates MD [address] [place], [place] [id number] PCP - General Family Medicine 02/13/16 Lamonte Weber [address] [place], [place] [id number] 11/17/06 Moreno Oates MD [address] [facility] [place] [address] Home Care Provider Family Medicine 11/29/19 Moreno Oates MD [address] [facility] [place] [address] Referring Family Medicine 11/29/19 Sanjana Tarango MD [address] [facility] [address] MER[facility] [address] [place] [address] Consulting Infectious Diseases 11/29/19 Broadcast Technician Relationship Specialty Start Date End Date Moreno Oates MD [address] [place], [place] [id number] PCP - General Family Medicine 02/13/16 Lamonte [place] [address] 11/17/06 Moreno Oates MD [address] [facility] [address] [place], [place] 990431 Home Care Provider Family Medicine 11/29/19 Moreno Oates MD [address] [facility] [place] [address] Referring Family Medicine 11/29/19 Sanjana Tarango MD [address] [facility] [address] MER[facility] [address] [place] [address] Consulting Infectious Diseases 11/29/19 Broadcast Technician Relationship Specialty Start Date End Date Moreno Oates MD [address] [place], [place] [id number] PCP - General Family Medicine 02/13/16 Lamonte Weber [address] [place], [place] [id number] 11/17/06 Moreno Oates MD [address] [facility] [place] [address] Home Care Provider Family Medicine 11/29/19 Moreno Oates MD [address] [facility] [place] [address] Referring Family Medicine 11/29/19 Sanjana Tarango MD [address] [facility] [address] MER[facility] [address] [place] [address] Consulting Infectious Diseases 11/29/19 Broadcast Technician Relationship Specialty Start Date End Date Moreno Oates MD [address] [place], [place] [id number] PCP - General Family Medicine 02/13/16 Lamonte Weber [address] [place] [address] 11/17/06 Moreno Oates MD [address] [facility] [place] [address] Home Care Provider Family Medicine 11/29/19 Moreno Oates MD [address] [facility] [place] [address] Referring Family Medicine 11/29/19 Sanjana Tarango MD 360 [facility] [address] MER[facility] [address] [place] [address] [phone] Consulting Infectious Diseases 11/29/19 Broadcast Technician Relationship Specialty Start Date End Date Moreno Oates MD [address] [place], [place] [id number] PCP - General Family Medicine 02/13/16 Lamonte Weber [address] [place] [address] 11/17/06 Moreno Oates MD [address] [facility] [place] [address] Home Care Provider Family Medicine 11/29/19 Moreno Oates MD [address] [facility] [place] [address] Referring Family Medicine 11/29/19 Sanjana Tarango MD [address] [facility] [address] MER[facility] [address] [place] [address] Consulting Infectious Diseases 11/29/19 Broadcast Technician Relationship Specialty Start Date End Date Moreno Oates MD [address] [place], [place] [id number] PCP - General Family Medicine 02/13/16 Lamonte Weber [address] [place] [address] 11/17/06 Moreno Oates MD [address] [place] [address] [address] [place], [place] 104091 Home Care Provider Family Medicine 11/29/19 Moreno Oates MD [address] [place] [address] [place] [address] Referring Family Medicine 11/29/19 Sanjana Tarango MD 360[address] [facility] [address] MER[facility] [address] [place] [address] [phone] Consulting Infectious Diseases 11/29/19 Broadcast Technician Relationship Specialty Start Date End Date Moreno Oates MD [address] [place], [place] [id number] PCP - General Family Medicine 02/13/[address] [id number] 11/17/06 Moreno Oates MD [address] [place] [address] [place] [address] Home Care Provider Family Medicine 11/29/19 Moreno Oates MD [address] [place] [address] [place] [address] Referring Family Medicine 11/29/19 Sanjana Tarango MD [address] [facility] [address] MER[facility] [address] [place] [address] [phone] Consulting Infectious Diseases 11/29/19 Team Status: Inactive Member Role Status Dates Ender Oates MD Attending Provider Active Team Status: Inactive Member Role Status Dates Ender Oates MD Attending Provider, Referring Prov ider Active Team Status: Inactive Member Role Status Dates Chet Angel Attending Provider Active Broadcast Technician Relationship Specialty Start Date End Date Mroeno Oates MD [address] [place], [place] [id number] PCP - General Family Medicine 02/13/16 Lamonte Weber [address] [place] [address] 11/17/06 Moreno Oates MD [address] [place] [address] [place] [address] Home Care Provider Family Medicine 11/29/19 Moreno Oates MD [address] [place] [address] [place] [address] Referring Family Medicine 11/29/19 Sanjana Tarango MD [address] [facility] [address] MER[facility]ER [address] [place] [address] Consulting Infectious Diseases 11/29/19 Broadcast Technician Relationship Specialty Start Date End Date Moreno Oates MD 174 [place], [place] [id number] PCP - General Family Medicine 02/13/16 Lamonte Weber [address] [place] [address] 11/17/06 Moreno Oates MD [address] [place] [address] [place] [address] Home Care Provider Family Medicine 11/29/19 Moreno Oates MD [address] [place] [address] [place] [address] Referring Family Medicine 11/29/19 Sanjana Tarango MD 360 [facility] [address] MER[facility]ER [address] [place] [address] Consulting Infectious Diseases 11/29/19 Broadcast Technician Relationship Specialty Start Date End Date Moreno Oates MD 174 [place], [place] [id number] PCP - General Family Medicine 02/13/16 Lamonte Weber [address] [place] [address] 11/17/06 Moreno Oates MD [address] [place] [address] [place] [address] Home Care Provider Family Medicine 11/29/19 Moreno Oates MD [address] [place] [address] [place] [address] Referring Family Medicine 11/29/19 Sanjana Tarango MD [address] [facility] [address] MER[facility] [address] [place] [address] Consulting Infectious Diseases 11/29/19 Broadcast Technician Relationship Specialty Start Date End Date Moreno Oates MD [address] [place], [place] 861681 PCP - General Family Medicine 02/13/16 Lamonte Weber [address] [place] [address] 11/17/06 Moreno Oates MD [address] [place] [address] [place] [address] Home Care Provider Family Medicine 11/29/19 Moreno Oates MD [address] [place] [address] [place] [address] Referring Family Medicine 11/29/19 Sanjana Tarango MD [address] [facility] [address] MER[facility]ER [address] [place] [address] Consulting Infectious Diseases 11/29/19 Broadcast Technician Relationship Specialty Start Date End Date Moreno Oates MD [address] [place], [place] [id number] PCP - General Family Medicine 02/13/16 Lamonte Weber [address] [place] [address] 11/17/06 Moreno Oates MD [address] [facility] [place] [address] Home Care Provider Family Medicine 11/29/19 Moreno Oates MD [address] [place] [address] [place] [address] Referring Family Medicine 11/29/19 Sanjana Tarango MD [address] [facility] [address] MER[facility] [address] [place] [address] Consulting Infectious Diseases 11/29/19 Broadcast Technician Relationship Specialty Start Date End Date Moreno Oates MD [address] [place], [place] 028401 PCP - General Family Medicine 02/13/16 Lamonte Weber [address] [place] [address] 11/17/06 Moreno Oates MD [address] [facility] [place] [address] Home Care Provider Family Medicine 11/29/19 Moreno Oates MD [address] [facility] [place] [address] Referring Family Medicine 11/29/19 Sanjana Tarango MD [address] [facility] [address] MER[facility] [address] [place] [address]678 Consulting Infectious Diseases 11/29/19 Broadcast Technician Relationship Specialty Start Date End Date Moreno Oates MD [address] [place] 535151 PCP - General Family Medicine 02/13/16 Lamonte Weber [address] [place] [address] 11/17/06 Moreno Oates MD [address] [place] [address] [place] [address] Home Care Provider Family Medicine 11/29/19 Moreno Oates MD [address] [place] [address] [place] [address] Referring Family Medicine 11/29/19 [place] [address] [place] [address] DR MERCER [address] [place] [address] Consulting Infectious Diseases 11/29/19 Broadcast Technician Relationship Specialty Start Date End Date Moreno Oaets 1 [place] [address] PCP - General 02/14/16 Broadcast Technician Relationship Specialty Start Date End Date Moreno Oates MD [address] [place], [place] 680761 PCP - General Family Medicine 02/13/16 Lamonte Weber [address] [place] [address] 11/17/06 Moreno Oates MD [address] [place] [address] [address] [place], [place] 362301 Home Care Provider Family Medicine 11/29/19 Moreno Oates MD [address] [place] [address] [address] [place], [place] [phone] Referring Family Medicine 11/29/19 Sanjana Tarango MD [address] [facility] [address] MERCER [address] [place] [address]53 Consulting Infectious Diseases 11/29/19 Broadcast Technician Relationship Specialty Start Date End Date Moreno Oates MD [address] [place] [address] PCP - General Family Medicine 02/13/16 Lamonte Weber [address] [place] [address] 11/17/06 Moreno Oates MD [address] [facility] [address] [place], [place] 629941 Home Care Provider Family Medicine 11/29/19 Moreno Oates MD [address] [facility] [address] [place], [place] 065061 Referring Family Medicine 11/29/19 Sanjana Tarango MD 3609 [facility] [address] [address] Consulting Infectious Diseases 11/29/19 Broadcast Technician Relationship Specialty Start Date End Date Moreno Oates MD [address] [place] [address] PCP - General Family Medicine 02/13/16 Lamonte Weber [address] [place] [address] 11/17/06 Moreno Oates MD [address] [facility] [address] [place], [place] 151851 Home Care Provider Family Medicine 11/29/19 Moreno Oates MD [address] [facility] [address] [place], [place] 096701 Referring Family Medicine 11/29/19 Sanjana Tarango MD [address] [facility] [address] MERCER [address] [place] [address] 23055 Consulting Infectious Diseases 11/29/19 Broadcast Technician Relationship Specialty Start Date End Date Moreno Oates MD [address] [place] [address] PCP - General Family Medicine 02/13/16 Lamonte Weber [address] [place] [place], [place] [id number] 11/17/06 Moreno Oates MD [address] [facility] [place] [address] Home Care Provider Family Medicine 11/29/19 Moreno Oates MD [address] [facility] [address] [place], [place] 960021 Referring Family Medicine 11/29/19 Sanjana Tarango MD [address] [facility] [address] MERCER [address] [place] [address]179 Consulting Infectious Diseases 11/29/19 Broadcast Technician Relationship Specialty Start Date End Date Moreno Oates MD [address] [place] [address] PCP - General Family Medicine 02/13/16 Lamonte Weber [address] [place], [place] [id number] 11/17/06 Moreno Oates MD [address] [facility] [place] [address] Home Care Provider Family Medicine 11/29/19 Moreno Oates MD [address] [facility] [place] [address] Referring Family Medicine 11/29/19 Sanjana Tarango MD [address] [facility] [address] MERCER [address] [place] [address] 54305 Consulting Infectious Diseases 11/29/19 Broadcast Technician Relationship Specialty Start Date End Date Moreno Oates MD [address] [place] [address] PCP - General Family Medicine 02/13/16 Lamonte Weber [address] [place], [place] [id number] 11/17/06 Moreno Oates MD [address] [facility] [place] [address] Home Care Provider Family Medicine 11/29/19 Moreno Oates MD [address] [facility] [place] [address] Referring Family Medicine 11/29/19 Sanjana Tarango MD [address] [facility] [address] MERCER [address] [place] [address] 00840 Consulting Infectious Diseases 11/29/19 Broadcast Technician Relationship Specialty Start Date End Date Moreno Oates MD 174 [place] [address] PCP - General Family Medicine 02/13/16 Lamonte Weber [address] [place] [address] 11/17/06 Moreno Oates MD [address] [facility] [place] [address] Home Care Provider Family Medicine 11/29/19 Moreno Oates MD [address] [facility] [place] [address] Referring Family Medicine 11/29/19 Sanjana Tarango MD [address] [facility] [address] MERCER [address] [place] [address]41 Consulting Infectious Diseases 11/29/19 Broadcast Technician Relationship Specialty Start Date End Date Moreno Oates MD [address] [place] [address] PCP - General Family Medicine 02/13/16 Lamonte Weber [address] [place] [address] 11/17/06 Moreno Oates MD [address] [facility] [place] [address] Home Care Provider Family Medicine 11/29/19 Moreno Oates MD [address] [facility] [address] [place], [place] 318741 Referring Family Medicine 11/29/19 Sanjana Tarango MD [address] [facility] [place] [address] Consulting Infectious Diseases 11/29/19 Broadcast Technician Relationship Specialty Start Date End Date Moreno Oates MD [address] [place] [address] PCP - General Family Medicine 02/13/16 Lamonte Weber [address] [place] [address] 11/17/06 Moreno Oates MD [address] [facility] [address] [place], [place] 400661 Home Care Provider Family Medicine 11/29/19 Moreno Oates MD [address] [facility] [address] [place], [place] 883251 Referring Family Medicine 11/29/19 Sanjana Tarango MD [address] [address] Consulting Infectious Diseases 11/29/19 Broadcast Technician Relationship Specialty Start Date End Date Moreno Oates MD 174 [place] [address] PCP - General Family Medicine 02/13/16 Lamonte Weber [address] [place] [address] 11/17/06 Moreno Oates MD [address] [facility] [address] [place], [place] 944261 Home Care Provider Family Medicine 11/29/19 Moreno Oates MD [address] [facility] [address] [place], [place] 000041 Referring Family Medicine 11/29/19 Sanjana Tarango MD 3609 [facility] [address] [address] Consulting Infectious Diseases 11/29/19 Broadcast Technician Relationship Specialty Start Date End Date Moreno Oates MD [address]40 [place] [address] PCP - General Family Medicine 02/13/16 Lamonte Weber [address] [place] [place], [place] [id number] 11/17/06 Moreno Oates MD [address] [facility] [place] [address] Home Care Provider Family Medicine 11/29/19 Moreno Oates MD [address] [facility] [place] [address] Referring Family Medicine 11/29/19 Sanjana Tarango MD [address] [facility] [address] MERCER [address] [place] [address] 02281 Consulting Infectious Diseases 11/29/19 Broadcast Technician Relationship Specialty Start Date End Date Moreno Oates MD 174 [place] [address] PCP - General Family Medicine 02/13/16 Lamonte Weber [address] [place], [place] 07772270 11/17/06 Moreno Oates MD [address] [facility] [address] [place], [place] 594891 Home Care Provider Family Medicine 11/29/19 Moreno Oates MD [address] [facility] [address] [place], [place] 203641 Referring Family Medicine 11/29/19 Sanjana Tarango MD [address] [facility] [address] MERCER [address] [place] [address] Consulting Infectious Diseases 11/29/19 Broadcast Technician Relationship Specialty Start Date End Date Moreno Oates MD [address] [place] [address] PCP - General Family Medicine 02/13/16 Lamonte Weber [address] [place] [address] 11/17/06 Moreno Oates MD [address] [facility] [place] [address] Home Care Provider Family Medicine 11/29/19 Moreno Oates MD [address] [facility] [place] [address] Referring Family Medicine 11/29/19 Sanjana Tarango MD [address] [facility] [address] MERCER [address] [place] [address] 53601 Consulting Infectious Diseases 11/29/19 Broadcast Technician Relationship Specialty Start Date End Date Moreno Oates MD [address] [place] [address] PCP - General Family Medicine 02/13/16 Lamonte Weber [address] [facility] [address] 11/17/06 Moreno Oates MD [address] [facility] [address] [place], [place] 015721 Home Care Provider Family Medicine 11/29/19 Moreno Oates MD [address] [facility] [place] [address] Referring Family Medicine 11/29/19 Sanjana Tarango MD [address] [facility] [address] MERCER [address] [place] [address] Consulting Infectious Diseases 11/29/19 Broadcast Technician Relationship Specialty Start Date End Date Moreno Oates MD [facility] [place] [address] PCP - General Family Medicine 02/13/16 Lamonte Weber [address] [place] [address] [phone] 11/17/06 Moreno Oates MD [address] [facility] [address] [place], [place] 11543281 Home Care Provider Family Medicine 11/29/19 Moreno Oates MD [address] [facility] [place] [address] Referring Family Medicine 11/29/19 Sanjana Tarango MD [address] [facility] [address] MERCER [address] [place] [address] [phone] Consulting Infectious Diseases 11/29/19 Broadcast Technician Relationship Specialty Start Date End Date Moreno Oates MD [address]40 [place] [address] PCP - General Family Medicine 02/13/16 Lamonte Weber [address] [place] [address] 11/17/06 Moreno Oates MD [address] [facility] [address] [place], [place] 520181 Home Care Provider Family Medicine 11/29/19 Moreno Oates MD [address] [facility] [address] [place], [place] 566151 Referring Family Medicine 11/29/19 [place] [address] [place] [address] Consulting Infectious Diseases 11/29/19 Broadcast Technician Relationship Specialty Start Date End Date Moreno Oates MD [address]40 [place] [address] PCP - General Family Medicine 02/13/16 Lamonte Weber [address] [place] [address] 11/17/06 Moreno Oates MD [address] [facility] [address] [place], [place] 728991 Home Care Provider Family Medicine 11/29/19 Moreno Oates MD [address] [facility] [address] [place], [place] 76360281 Referring Family Medicine 11/29/19 Sanjana Tarango MD [address] [facility] [address] MERC[address] [place] [address] Consulting Infectious Diseases 11/29/19 Broadcast Technician Relationship Specialty Start Date End Date Moreno Oates MD [address]40 [place] [address] PCP - General Family Medicine 02/13/16 Lamonte Weber [address] [place] [address] 11/17/06 Moreno Oates MD [address] [facility] [place] [address] Home Care Provider Family Medicine 11/29/19 Moreno Oates MD [address] [facility] [place] [address] Referring Family Medicine 11/29/19 Sanjana Tarango MD [address] [facility] [address] MECRER [address] [place] [address]012 Consulting Infectious Diseases 11/29/19 Broadcast Technician Relationship Specialty Start Date End Date Moreno Oates MD [address] [place] [address] PCP - General Family Medicine 02/13/16 Lamonte Weber [address] [place], [place] 31193270 11/17/06 Moreno Oates MD [address] [facility] [address] [place], [place] 465081 Home Care Provider Family Medicine 11/29/19 Moreno Oates MD [address] [facility] [place] [address] Referring Family Medicine 11/29/19 Sanjana Tarango MD [address] [facility] [address] [place] [address]33 Consulting Infectious Diseases 11/29/19 Broadcast Technician Relationship Specialty Start Date End Date Moreno Oates MD [address]40 [place] [address] PCP - General Family Medicine 02/13/16 Lamonte Weber [address] [place] [address] 11/17/06 Moreno Oates MD [address] [facility] [place] [address] Home Care Provider Family Medicine 11/29/19 Moreno Oates MD [address] [facility] [place] [address] Referring Family Medicine 11/29/19 Sanjana Tarango MD [address] [facility] [address] [place] [address] 58330 Consulting Infectious Diseases 11/29/19 Broadcast Technician Relationship Specialty Start Date End Date Moreno Oates MD [address]40 [place] [address] PCP - General Family Medicine 02/13/16 Lamonte Weber [address] [place] [address] 11/17/06 Moreno Oates MD [address] [facility] [address] [place], [place] 742731 Home Care Provider Family Medicine 11/29/19 Moreno Oates MD [address] [facility] [address] [place], [place] 054431 Referring Family Medicine 11/29/19 Sanjana Tarango MD [address] [facility] [address] MERCER [address] [place] [address] 55072 Consulting Infectious Diseases 11/29/19 Broadcast Technician Relationship Specialty Start Date End Date Moreno Oates MD [address] [place] [address] PCP - General Family Medicine 02/13/16 Lamonte Weber [address] [place] [address] [phone] 11/17/06 Moreno Oates MD [address] [facility] [address] [place], [place] 929511 Home Care Provider Family Medicine 11/29/19 Moreno Oates MD [address] [place] [address] Referring Family Medicine 11/29/19 Sanjana Tarango MD [address] [facility] [address] MERCER [address] [place] [address] Consulting Infectious Diseases 11/29/19 Broadcast Technician Relationship Specialty Start Date End Date Moreno Oates MD [address] [place] [address] PCP - General Family Medicine 02/13/16 Lamonte Weber [address] [place] [address] 11/17/06 Moreno Oates MD [address] [facility] [address] [place], [place] [address] Home Care Provider Family Medicine 11/29/19 Moreno Oates MD [address] [facility] [address] [address] [place], [place] [address] Referring Family Medicine 11/29/19 Sanjana Tarango MD [address] [facility] [address] MERCER [address] [place] [address] Consulting Infectious Diseases 11/29/19 Broadcast Technician Relationship Specialty Start Date End Date Moreno Oates MD [address] [place] [address] PCP - General Family Medicine 02/13/16 Lamonte Weber [address] [place], [place] [phone] 11/17/06 Moreno Oates MD [address] [facility] [address] [address] [place], [place] [address] Home Care Provider Family Medicine 11/29/19 Moreno Oates MD [address] [facility] [address] [address] [place], [place] [address] Referring Family Medicine 11/29/19 Sanjana Tarango MD [address] [place] [phone] Consulting Infectious Diseases 11/29/19 Broadcast Technician Relationship Specialty Start Date End Date Moreno Oates MD [address] [place] [address] PCP - General Family Medicine 02/13/16 Lamonte Weber [address] [place] [address] 11/17/06 Moreno Oates MD [address] [facility] [address] [place], [place] [phone] Home Care Provider Family Medicine 11/29/19 Moreno Oates MD [address] [facility] [address] [address] [place], [place] [address] Referring Family Medicine 11/29/19 Sanjana Tarango MD [address] [facility] [address] MER[facility]ER [address] [place] [address] Consulting Infectious Diseases 11/29/19 Carlos Mei APRN.TUNNEL HEADING SUPERVISOR [address] [facility] [address] [place], [place] [address] Sap Bi Developer Internal Medicine 05/08/24 Broadcast Technician Relationship Specialty Start Date End Date Moreno Oates MD [address] [place], [place] [address] PCP - General Family Medicine 02/13/16 Lamonte Weber [address] [facility], [place] [phone] 11/17/06 Moreno Oates MD [address] [facility] [address] [place], [place] [id number] Home Care Provider Family Medicine 11/29/19 Moreno Oates MD [address] [facility] [address] [address] [place], [place] [address] Referring Family Medicine 11/29/19 Sanjana Tarango MD [address] [facility] [address] MER[facility] [address] [place] [address] Consulting Infectious Diseases 11/29/19 Carlos Mei APRN.TUNNEL HEADING SUPERVISOR [address] [facility] [address] [place], [place] [address] Sap Bi Developer Internal Medicine 05/08/24 Broadcast Technician Relationship Specialty Start Date End Date Moreno Oates MD [address] [place] [address] [id number] PCP - General Family Medicine 02/13/16 Lamonte Weber [address] [place] [address] [phone] 11/17/06 Moreno Oates MD [address] [facility] [address] [place], [place] [phone] Home Care Provider Family Medicine 11/29/19 Moreno Oates MD [address] [facility] [address] [place], [place] [phone] Referring Family Medicine 11/29/19 Sanjana Tarango MD [address] [facility] [address] MER[facility]ER [address] [place] [address] Consulting Infectious Diseases 11/29/19 Carlos Mei APRN.TUNNEL HEADING SUPERVISOR [address] [facility] [address] [place], [place] [address] Sap Bi Developer Internal Medicine 05/08/24 Team Status: Inactive Member [...] August 10, 2024 End: August 10, 2024 Broadcast Technician Relationship Specialty Start Date End Date Moreno Oates MD [address] [place], [place] [address] PCP - General Family Medicine 02/13/16 Lamonte Weber [address] [place] [address] 11/17/06 Moreno Oates MD [address] [facility] [address] [place], [place] [address] Home Care Provider Family Medicine 11/29/19 Moreno Oates MD [address] [facility] [address] [place], [place] [address] Referring Family Medicine 11/29/19 Sanjana Tarango MD [address] [facility] [place] [address] Consulting Infectious Diseases 11/29/19 Carlos Mei APRN.TUNNEL HEADING SUPERVISOR [address] [facility] [address] [place], [place] [address] Sap Bi Developer Internal Medicine 05/08/24 Broadcast Technician Relationship Specialty Start Date End Date Moreno Oates MD [address] [facility] [place], [place] [address] PCP - General Family Medicine 02/13/16 Lamonte Weber [address] [place], [place] [phone] 11/17/06 Moreno Oates MD [address] [facility] [address] [place], [place] [phone] Home Care Provider Family Medicine 11/29/19 Moreno Oates MD [address] [facility] [address] [place], [place] [phone] Referring Family Medicine 11/29/19 Sanjana Tarango MD [address] [facility] [place] [address] Consulting Infectious Diseases 11/29/19 Carlos Mei APRN.CNP [address] [facility] [address] [place], [place] [phone] Sap Bi Developer Internal Medicine 05/08/24 Goals (unrecognized section and [...] BE BASED ON THE PRIMARY CLINICAL RECORDS. [facility]. provides no warranty or guarantee of the accuracy or completeness of information in this document.
[2024-12-15 09:04] LABS: Hematocrit 43.0 % (37-47); Hemoglobin 14.4 g/dL (12.0-15.0); Mean Corp Hgb Conc 33.5 g/dL (32-36); Mean Corpuscular Volume 96.2 fL (81-99); Mean Platelet Vol. 10.5 fl (6.2-12.0); Platelet Count 206 K/mm3 (150-450); RBC Distribution Width CV 14.7 % (11.6-14.6); RBC Distribution Width SD 52.1 fl (35.1-43.9); Red Blood Count 4.47 M/mm3 (4.2-5.4); White Blood Count 7.7 K/mm3 (4.4-11.0)
[2024-12-15 09:38] LABS: Anion Gap 14 (5-15); BUN 26 mg/dL (4-19); BUN/Creat Ratio 32.8 RATIO (10-20); Calcium,Total 9.4 mg/dL (7.6-11.0); Carbon Dioxide 22.3 mmol/L (21.0-32.0); Chloride 100 mmol/L (98-108); Glucose 113 mg/dL (70-99); Potassium 4.5 mmol/L (3.3-5.1)
== END ==
LOC: OLS.ACW300 05:00
PROVIDERS: Visit Provider Family Medicine
DX: G35 Multiple sclerosis (principal); M00.861 Arthritis due to other bacteria, right knee; R53.1 Weakness; R54 Age-related physical debility; R62.7 Adult failure to thrive; J44.9 Chronic obstructive pulmonary disease, unspecified
CPT/HCPCS: 36415; 80048; 85027

== ENCOUNTER → 2025-01-09 04:00 | Outpatient (REF) | payer MEDICARE, MEDICAID, SELFPAY ==
[2025-01-09 10:35] LABS: Hematocrit 45.0 % (37-47); Hemoglobin 14.6 g/dL (12.0-15.0); Mean Corp Hgb Conc 32.4 g/dL (32-36); Mean Corpuscular Volume 99.6 fL (81-99); Mean Platelet Vol. 10.5 fl (6.2-12.0); Platelet Count 234 K/mm3 (150-450); RBC Distribution Width CV 14.8 % (11.6-14.6); RBC Distribution Width SD 54.8 fl (35.1-43.9); Red Blood Count 4.52 M/mm3 (4.2-5.4); White Blood Count 7.7 K/mm3 (4.4-11.0)
[2025-01-09 11:02] LABS: AST(SGOT) 28 U/L (<=31); Alanine Aminotransfer ALT/SGPT 21 U/L (<=34); Albumin, Serum 4.0 g/dL (3.4-4.8); Alkaline Phosphatase 91 U/L (35-104); Anion Gap 14 (5-15); BUN 27 mg/dL (4-19); BUN/Creat Ratio 30.3 RATIO (10-20); Calcium,Total 10.1 mg/dL (7.6-11.0); Carbon Dioxide 24.7 mmol/L (21.0-32.0); Chloride 98 mmol/L (98-108); Globulin 3.9 g/dL (2.2-4.2); Glucose 84 mg/dL (70-99); Potassium 4.2 mmol/L (3.3-5.1)
== END ==
LOC: OLS.ACW300 04:00
PROVIDERS: Referring Provider Family Medicine; Visit Provider Family Medicine
DX: G35 Multiple sclerosis (principal); M00.861 Arthritis due to other bacteria, right knee; R53.1 Weakness; R54 Age-related physical debility; R62.7 Adult failure to thrive; J44.9 Chronic obstructive pulmonary disease, unspecified
CPT/HCPCS: 36415; 80053; 85027

== ENCOUNTER → 2025-02-09 | Outpatient (REF) | payer MEDICARE, MEDICAID, SELFPAY ==
--- OUTSIDE RECORDS SUMMARY | 2025-02-09 04:44 | XMS RPT_ITS | CCD ---
Author Organization [facility] Care Team Providers Care 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 Name Role Phone Moreno Oates Primary Care Provider Lamonte Weber Unavailable Moreno Oates MD Primary Care Provider Moreno Oates MD Unavailable Moreno Oates MD Unavailable Sukhdeep YEE, Sanjana Unavailable Lamonte Weber Unavailable [phone] Sanjana Tarango MD Unavailable Lamonte Weber Unavailable [...] Gracie YEE, Moreno Gong Primary Care Provider [phone] Gracie YEE, Moreno R Unavailable Gracie YEE, Moreno Gong Unavailable Sukhdeep YEE, Sanjana Unavailable PROVIDER, UNKNOWN Referring Unavailable MORENO OATES Primary Care Unavailable Moreno Oates Primary Care Provider [phone] KENJI DO~[id number], KENJIJESSICA Rodríguez Attendi ng Unavailable KENJI DO~[id number], KENJI ENDER Marcos Admitti ng Unavailable MORENO OATES Primary Care Unavailable Gracie YEE, Moreno Gong Primary Care Provider [phone] Sigifredo BRICK CATCHER.DOCK HAND, Carlos Unavailable Ender Oates MD Attending Provider Royer Maldonado Attending Provider UnavailMORENO German Primary Care Unavailable RED GUIDRY Admitting Unavailable HAROLDO, RED Attending Unavailable Lamonte Weber Unavailable [phone] Gracie RICKS, Ender Attending Unavailable Merary RICKS, Royer Attending Unavailable Merary RICKS, Royer Attending Unavailable Gracie RICKS, Ender Attending Unavailable Gracie RICKS, Ender Referring Unavailable Gracie RICKS, Ender Attending Unavailable Royer Maldonado Attending Unavailable Gracie RICKS, Ender Attending Unavailable [...] [HYDROCODONE-ACETA MINOPHEN] Drug Allergy 08-15-19 17 [facility] [place], [place] (5 sources) Cephalexin Drug Allergy 12-12-19 15 [place], [place] (5 sources) Nitrofurantoin Drug Allergy 12-12-19 15 [place], [place] (20 sources) gabapentin; Translations: [GABAPENTIN] Drug Allergy 10-08-19 19 [facility] Work Phone: (20 sources) NITROFURANTOIN, MACROCRYSTALS / Nitrofurantoin, Monohydrate; Translations: [NITROFURANTOIN MONOHYD/M-CRYST] Drug Allergy 02-13-20 16 [facility] (20 sources) Non-steroidal anti-inflammatory agent; Translations: [NSAIDS (NON-STEROIDAL ANTI-INFLAMMATORY DRUG)] Drug Intolerance 06-06-19 17 [facility] (20 sources) traMADol; Translations: [TRAMADOL] Drug Allergy 01-23-20 17 Contraindicati on-Medical Surgical [facility] (20 sources) Non-steroidal anti-inflammatory agent Drug Intolerance 06-06-19 17 [facility] (2 sources) Nitrofurantoin Drug Allergy 02-13-20 16 [facility] Medications Current Medications Medication Drug Class(es) Dates Sig (Normalized) Sig (Original) acetaminophen 325 mg / oxyCODONE hydrochloride 5 mg oral tablet (20 sources) Opioid Agonist Start: 05-24-2024 End: 02-12-2025 take 1 tablet by mouth every six hours oxyCODONE-acetami nophen (PERCOCET) 5-325 mg tablet 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 120 tablet 01/13/2025 02/12/2025 Active Start: 12-30-2023 End: 05-22-2024 take 1 [...] th every 6 hours for 28 days. [id number] 200 actuat albuterol 0.09 mg/actuat metered dose inhaler (1 source) beta2-Adrenergic Agonist Start: 02-03-20 take 2 puff(s) by inhalation every six hours as needed albuterol HFA (PROVENTIL HFA) 90 mcg/actuation inhaler Inhale 2 puffs as instructed every 6 hours as needed. 1 each 02/02/2025 Active albuterol 0.833 mg/ml / ipratropium bromide 0.167 mg/ml inhalant solution (2 sources) Anticholinergic, beta2-Adrenergic Agonist Start: 10-09-19 End: 10-13-19 20 ipratropium-albute rol (DUONEB) nebulizer solution 1 ampule amoxicillin 875 mg / clavulanate 125 mg oral tablet (2 sources) Penicillin-class Antibacterial Start: 10-25-19 End: 10-27-19 20 take 1 tablet by mouth every twelve [...] tablet (20 sources) Benzodiazepine Start: 05-24-2024 End: 02-12-2025 take 1 tablet by mouth twice daily diazePAM (VALIUM) 5 mg tablet Indications: Chronic anxiety Take 1 tablet by mouth two times a day for 30 days. 60 tablet 01/13/2025 02/12/2025 Active Start: 02-26-2024 End: 05-22-2024 take 1 [...] Take 1 tablet by candido th every 12 hours as needed for up to 30 days. Take 1 tablet by candido th twice daily for 30 days. Take 1 tablet by candido th twice daily for 30 days. Do not start before July 02, 2022. Take 1 tablet by candido th twice daily for 28 days. Take 1 tablet by candido th two times a day for 30 days. [...] Comment on above: Take 1 tablet by [facility] twice daily. Take 1 capsule by [facility] twice daily for 7 days. 0.4 [...] 02/13/2023 Active take 1 tablet by candido th twice daily as needed guaiFENesin (MUCINEX) 600 MG extended release tablet Take 600 mg by mouth 2 times daily as needed 0 Active Comment on above: Take 1 tablet by candido th twice daily. guaifenesin/dextromethorphan (GUAIFENESIN DM ORAL) (20 [...] DERM CQ) 21 MG/24HR 1 patch nystatin 613072 unt/ml topical cream (20 sources) Polyene Antifungal [...] on above: Take 1 capsule by mo [facility] once daily. ondansetron 8 mg oral tablet [...] Comment on above: Take 1 tablet by [facility] every 8 hours as needed for Nausea/Vomiting. [...] candido th once daily. polyethylene glycol 3350 30939 mg powder for oral solution (20 sources) [...] 150 mg oral capsule (20 sources) Start: 4 End: 5 take 1 capsule by mouth twice daily pregabalin (LYRICA) 150 mg capsule Indications: MS (multiple sclerosis) ([facility]) , Daily headache Take 1 capsule by mouth two times a day for 30 days. 60 capsule 01/13/2025 02/12/2025 Active Start: 09-24-2022 End: 05-29-2023 take 1 [...] on above: Take 1 capsule by mo [facility] twice daily for 30 days. Take 1 capsule by mo [facility] twice daily for 30 days. Do not start before July 02, 2022. Take 1 capsule by mo [facility] twice daily for 28 days. Take 1 capsule by mo [facility] two times a day for 30 days. [...] by mouth. Active take 2 tablets by mo ut every twelve hours as needed for pain [...] Taking at Discharge) 20 ml albumin human, senior living 250 mg/ml injection (2 sources) Human Serum [...] separately. Start: 11-29-2019 take 1 tablet by [facility] twice daily potassium chloride ER (K-DUR, [...] Comment on above: Take 1 tablet by [facility] twice daily. 1000 ml potassium chloride [...] 2312 Start: 12-12-2019 take 1 capsule by [facility] three times daily valproic acid (DEPAKENE) 250 mg capsule Take 1 capsule by mouth three times daily. 90 capsule 2 12/12/2019 Active Comment on above: Take 1 capsule by [facility] three times daily. 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) drug therapy; Translations: [Other residential (current) drug therapy] Onset: 06-03-2024 Episodic Other [...] Long-term current use of benzodiazepine; Translations: [Other residential (current) drug therapy] Onset: 11-28-2017 07-10-2018 Episodic Other aftercare (20 sources) Prescribed medication regimen behavior finding; Translations: [longterm (current) use of opiate analgesic] Onset: 11-28-2017 11-05-2019 Episodic Other circulatory disease (20 sources) Low [...] Results Test Name Value Interpretation Reference Range [facility] C[facility] Tele[facility] (FPWADS) CHARLIE NGUYEN ([id number]) 1955 F T Date Time Provider Department 02/02/25 MORENO OATES During your visit today, we recorded the following information about you: Hoda Early 02/02/2025 9:49 AM Signed Charlie is a patient of Moreno Oates MD today Tamar, Nurse from [facility] called to request a rescue inhaler for this patient. She stated she texted Dr. Oates who told her to call the office for the request. Please send to [facility]. Patient has been identified by name and birthdate. Was an appointment scheduled: No Closing statement: Results or non-symptom based questions: Thank you for calling [facility], your call will be returned within the next business day. Carlos Do APRN.CNP 02/02/2025 11:15 AM Signed Rx sent. Carlos Mei APRN.BENJAMIN Requested Prescriptions Signed Prescriptions Disp Refills albuterol HFA (PROVENTIL HFA) 90 mcg/actuation inhaler 1 each 0 Sig: Inhale 2 puffs as instructed every 6 hours as needed. Authorizing Provider: CARLOS MEI Pharmacy Information Pharmacy Address Telephone [employer] [facility] [address] [place] [address] Allergies As of Date: 02/02/2025 Noted Allergy Reaction NSAIDS (NON-STEROIDAL ANTI-INFLAM* 7 [...] Assessed Reason for Visit: Medication Request [138] Cmt: Rescue inhaler Order(s):albuterol HFA (PROVENTIL HFA) 90 mcg/actuation inhalerInhale 2 puffs as instructed every 6 hours as needed.Disp: 1 eachRfl: 0 Prescriptions as of 02/02/2025 - albuterol HFA (PROVENTIL HFA) 90 mcg/actuation inhaler Inhale 2 puffs as instructed every 6 hours as needed. - diazePAM (VALIUM) 5 mg tablet Take [...] Length of need: 99 mos/ lifetime. - (more content not included)... Normal [facility] 01-12-2025 [facility] Telephone (MILY) CHARLIE NGUYEN ([id number]) 1955 F [facility] Date Time Provider Department 01/12/25 MORENO OATES During your visit today, we recorded the following information about you: Roderick Gaviria LPN 01/12/2025 3:01 PM Signed Received lab results from [facility]. Placed in provider's inbox for review. Route to MA scanning Allergies As of Date: 01/12/2025 Noted Allergy Reaction NSAIDS (NON-STEROIDAL ANTI-INFLAM* 7 [...] for Visit: Outside Lab Results [753] Cmt: [facility] Prescriptions as of 01/12/2025 - pregabalin (LYRICA) 150 mg capsule Take 1 capsule by mouth two times a day for 30 days. - diazePAM (VALIUM) 5 mg tablet Take 1 tablet by mouth two times a day for 30 days. - oxyCODONE-acetaminoph en (PERCOCET) 5-325 mg tablet Take 1 tablet by mouth every 6 hours for 30 days. - pantoprazole DR (PROTONIX) [...] once daily. Problem List As Of Date 01/12/2025 Noted Resolved Osteoarthritis of right knee [M17.11] [...] right knee [M25.561] 06/25/2017 07/08/2017 S/P revision o (more content not included)... Normal [facility] CNPNon 12-15-2024 [facility] Tele[facility] (MILY) CHARLIE NGUYEN ([id number]) 1955 F T Date Time Provider Department 12/15/24 MORENO OATES During your visit today, we recorded the following information about you: Roderick Gaviria LPN 12/15/2024 5:15 PM Signed Received lab results from [facility]. Placed in provider's inbox for review. Route to MA scanning Allergies As of Date: 12/15/2024 Noted Allergy Reaction NSAIDS (NON-STEROIDAL ANTI-INFLAM* 7 [...] Reason for Visit: Received Outside Medical Records [1907] Cmt: [facility]- labs Prescriptions as of 12/15/2024 - diazePAM (VALIUM) 5 mg tablet Take [...] once daily. Problem List As Of Date 12/15/2024 Noted Resolved Osteoarthritis of right knee [M17.11] [...] [M25.561] 06/25/2017 (more content not included)... Normal [facility] [id number] 10-20-2024 [id number] Next Site of Care Admission Date: 10/17/2024 12:22 PM Patient Name: CHARLIE NGUYEN Location: [address] CARDIAC U/[facility] [id number] A Date of : 1955 ------- Placement Information ------- Referral Type:Chcf/SNF - Return Referral ID:[id number] Provider Name:[facility] Address 1:[address] Address 2: City:[place] Selection Factors:Returning to Facility State:[place] [facility] [phone] MAR & Discharge med list transmitted to [facility] via ClarityAd per TCC request. Electronically signed by [facility] Kris Anderson [facility] [phone] Rounds this am DCP: return to SNF today Notified daughter/Vicente Tasked 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 Pickup scheduled for 5pm. [facility] Nursing Note Pt refusing blood draw this am. Pt became verbally abusive to nurse and phlebotomy. Educated pt on reason why blood was going to be drawn. Pt still refuses. Will continue to monitor this shift. [facility] 30on 10-19-2024 30 Problem: Knowledge Deficit Goal: Patient/family/caregi kendy demonstrates understanding of disease process, treatment plan, medications, and discharge instructions Outcome: Progressing Problem: Potential for Compromised Skin Integrity Goal: Skin Integrity is Maintained or Improved Outcome: Progressing Goal: Nutritional status is improving Outcome: Progressing Problem: Urinary Incontinence Goal: Perineal skin integrity is maintained or improved Outcome: Progressing [facility] 30 Problem: Knowledge Deficit Goal: Patient/family/caregi kendy demonstrates understanding of disease process, treatment plan, medications, and discharge instructions Outcome: Progressing Problem: Potential for Compromised Skin Integrity Goal: Skin Integrity is Maintained or Improved Outcome: Progressing Goal: Nutritional status is improving Outcome: Progressing Problem: Urinary Incontinence Goal: Perineal skin integrity is maintained or improved Outcome: Progressing Normal [facility] BASIC METABOLIC PANELon 05-2 Anion gap [Moles/Vol] 9 mmol/L Normal 3-13 [facility] Comment on above: Performed By: #### L [id number] ####Pool Player: KWESI SANCHEZ ([phone])[facility] [place] (SBHLAB)[address] Calcium [Mass/Vol] 8.6 mg/dL Low 8.8-10.0 [facility] Comment on above: Performed By: #### L [id number] ####Pool Player: KWESI SANCHEZ ([id number])[facility] [place] (SBHLAB)[address] Chloride [Moles/Vol] 101 mmol/L Normal 98-107 [facility] Comment on above: Performed By: #### L AB15 ####Pool Player: KWESI SANCHEZ ([phone])[facility] [place] (SBHLAB)[address] CO2 [Moles/Vol] 25 mmol/L Normal 23-31 [facility] Comment on above: Performed By: #### L AB15 ####Pool Player: KWESI SANCHEZ ([id number])[facility] [place] (SBHLAB)[address] Creatinine [Mass/Vol] 0.82 mg/dL Normal 0.57-1.11 [facility] Comment on above: Performed By: #### L AB15 ####Pool Player: KWESI SANCHEZ ([phone])[facility] [place] (SBHLAB)[address] GLOMERULAR FILTRATION RATE ML/MIN/1.73 SQ M.PREDICTED 78.0 mL/min/1.73m*2 Normal >60.0 [facility] Comment on above: Result Comment: Calc ulation based on the Chronic Kidney Disease Epidemiology Collaboration (CKD-EPI) equation refit without adjustment for race Performed By: #### L AB15 ####Pool Player: KWESI SANCHEZ ([phone])[facility]ITAL[facility] [place] (SBHLAB)[address] Glucose [Mass/Vol] 107 mg/dL Normal 82-115 [facility] Comment on above: Performed By: #### L AB15 ####Pool Player: KWESI SANCHEZ ([id number])[facility])[address] Potassium [Moles/Vol] 4.0 mmol/L Normal 3.5-5.1 [facility] Comment on above: Result Comment: [facility] potassium values may be up to 0.5 mmol/L lower than serum values. Performed By: #### L AB15 ####Pool Player: KWESI SANCHEZ ([id number])[facility] [place] (SBHLAB)[address] Sodium [Moles/Vol] 135 mmol/L Low 136-145 [facility] Comment on above: Performed By: #### L AB15 ####Pool Player: KWESI SANCHEZ ([id number])[facility] (SBHLAB)[address] Urea nitrogen [Mass/Vol] 23 mg/dL Normal 9-23 [facility] Comment on above: Performed By: #### L AB15 ####Pool Player: KWESI SANCHEZ ([id number])[facility])[address] CBC WITH AUTO DIFFERENTIALon 10-19-2024 Basophils (Bld) [#/Vol] 0.1 10*3/uL Normal 0.0-0.2 [facility] Comment on above: Performed By: #### L [id number] ####Pool Player: KWESI GOODWINCER ([id number])[facility] [place] (SBHLAB)[address] Basophils/100 WBC (Bld) 0.5 % Normal 0.0-2.0 [facility] Comment on above: Performed By: #### L [id number] ####Pool Player: WKESI DANIEL ([id number])[facility] [place] (SBHLAB)[address] Eosinophils (Bld) [#/Vol] 0.0 10*3/uL Normal 0.0-0.5 [facility] Comment on above: Performed By: #### L [id number] ####Pool Player: KWESI ARMSTRONGFERNANDA ([id number])[facility] [place] (SBHLAB)[address] Eosinophils/100 WBC (Bld) 0.0 % Normal 0.0-6.0 [facility] Comment on above: Performed By: #### L [id number] ####Pool Player: KWESI DANIEL ([id number])[facility] [place] (SBHLAB)[address] Erythrocyte distribution width (RBC) [Ratio] 14.4 % Normal 11.5-15.0 [facility] Comment on above: Performed By: #### L [id number] ####Pool Player: KWESI PIKEAGUSTIN ([id number])[facility] [place] (SBHLAB)[address] [place] [address] Hematocrit (Bld) [Volume fraction] 42.7 % Normal 35.0-47.0 [facility] Comment on above: Performed By: #### L [id number] ####Pool Player: KWESI PIKEAGUSTIN ([id number])[facility] [place] (SBHLAB)[address] Hemoglobin (Bld) [Mass/Vol] 13.9 g/dL Normal 11.7-16.0 [facility] Comment on above: Performed By: #### L [id number] ####Pool Player: KWESI SANCHEZ ([id number])[facility] (SBHLAB)[address] IMMATURE GRANS % 0.9 % Normal 0.0-2.0 [facility] Comment on above: Performed By: #### L [id number] ####Pool Player: KWESI SANCHEZ ([id number])[facility] (SBHLAB)[address] IMMATURE GRANS ABSOLUTE 0.1 10*3/uL High <0.1 [facility] Comment on above: Performed By: #### L [id number] ####Pool Player: KWESI SANCHEZ ([id number])[facility] [place] (SBHLAB)[address] Lymphocytes (Bld) [#/Vol] 1.6 10*3/uL Normal 1.0-4.3 [facility] Comment on above: Performed By: #### L [id number] ####Pool Player: KWESI SANCHEZ ([id number])[facility] (SBHLAB)[address] Lymphocytes/100 WBC (Bld) 15.1 % Normal 15.0-45.0 [facility] Comment on above: Performed By: #### L [id number] ####Pool Player: KWESI SANCHEZ ([id number])[facility] (SBHLAB)[address] MCH (RBC) [Entitic mass] 32.2 pg Normal 26.0-34.0 [facility] Comment on above: Performed By: #### L [id number] ####Pool Player: KWESI SANCHEZ ([id number])[facility] (SBHLAB)[address] MCHC 32.6 % Normal 30.5-36.0 [facility] Comment on above: Performed By: #### L [id number] ####Pool Player: KWESI SANCHEZ ([id number])[facility] [place] (SBHLAB)[address] MCV (RBC) [Entitic vol] 98.8 fL Normal 77.0-99.0 [facility] Comment on above: Performed By: #### L [id number] ####Pool Player: KWESI SANCHEZ ([id number])[facility] [place] (SBHLAB)[address] Monocytes (Bld) [#/Vol] 1.5 10*3/uL High 0.0-0.9 [facility] Comment on above: Performed By: #### L [id number] ####Pool Player: KWESI SANCHEZ ([id number])[facility] [place] (SBHLAB)[address] Monocytes/100 WBC (Bld) 13.8 % High 5.0-13.0 [facility] Comment on above: Performed By: #### L [id number] ####Pool Player: KWESI SANCHEZ ([id number])[facility] [place] (SBHLAB)[address] NEUTROPHILS ABSOLUTE 7.4 10*3/uL Normal 1.8-7.5 [facility] Comment on above: Performed By: #### L [id number] ####Pool Player: KWESI SANCHEZ ([id number])[facility] [place] (SBHLAB)[address] [place] [address] [place] Neutrophils/100 WBC (Bld) 69.7 % Normal 38.0-82.0 [facility] Comment on above: Performed By: #### L [id number] ####Pool Player: KWESI SANCHEZ ([id number])[facility] [place] (SBHLAB)[address] NRBC 0.0 /100 WBCs Normal 0.0-2.0 [facility] Comment on above: Performed By: #### L [id number] ####Pool Player: KWESI SANCHEZ ([id number])[facility] [place] (SBHLAB)[address] Platelet mean volume (Bld) [Entitic vol] 9.9 fL Normal 9.0-12.7 [facility] Comment on above: Performed By: #### L [id number] ####Pool Player: KWESI DANIEL ([id number])[facility] [place] (SBHLAB)[address] Platelets (Bld) [#/Vol] 207 10*3/uL Normal 140-440 [facility] Comment on above: Performed By: #### L [id number] ####Pool Player: KWESI SANCHEZ ([id number])[facility] [place] (SBHLAB)[address] RBC (Bld) [#/Vol] 4.32 10*6/uL Normal 3.80-5.20 [facility] Comment on above: Performed By: #### L [id number] ####Pool Player: KWESI ARMSTRONGFERNANDA ([id number])[facility] [place] (SBHLAB)[address] WBC (Bld) [#/Vol] 10.6 10*3/uL Normal 3.6-10.7 [facility] Comment on above: Performed By: #### L [id number] ####Pool Player: KWESI PIKEAGUSTIN ([id number])[facility] [place] (SBHLAB)[address] [place] [address] Nursing Noteon 10-19-2024 Nursing Note Wound Care [...] sitting in chair. Verbalized understanding. Discussed with clinical psychologist licensed. Staff states MASD to gluteal cleft and redness to abdominal folds. Prevention Measures in place, including: Grover sheet with pillows/wedges, Heels elevated off bed on pillows, Zinc/Moisture Barrier ointment, Waffle chair cushion (obtain for pt once getting out of bed to chair). Skin Care precaution order set in place. Dietitian molding process technician involved. PT consult in place. D/W nursing staff. Will continue to follow pt. Please secure chat for any questions or concerns. Tanesha Balderas RN [facility] Progress Noteon 10-19-2024 Progress Note PHYSICAL THERAPY [facility] Name/MRN: Charlie Nguyen ([id number]) Date: 10/19/2024 Chart review complete. RN cleared [...] and as schedule permits. Tino Jung, PT [facility] Progress Note Nutrition rescreen complete. Pt assigned a level one for nutrition care. [facility] 30on 10-18-2024 30 Problem: Knowledge Deficit Goal: Patient/family/caregi kendy demonstrates understanding of disease process, treatment plan, medications, and discharge instructions Outcome: Progressing Problem: Potential for Compromised Skin Integrity Goal: Skin Integrity is Maintained or Improved Outcome: Progressing Goal: Nutritional status is improving Outcome: Progressing Problem: Urinary Incontinence Goal: Perineal skin integrity is maintained or improved Outcome: Progressing [facility] [id number] 10-18-2024 [id number] -Pt admitted for altered mental status/UTI. -Chart reviewed -Pt is from [facility], he is LTC and a bedhold. -Will not need auth to return. -Tasked INSTRUCTOR KINDERGARTEN to send return referral to facility. -Receiving IV ATB -PT ordered and pending at this time -On 4L O2, 2L is her baseline -Left HIPAA compliant VM to daughter for return call to verify discharge plan. -Discharge [facility] at [facility] time [facility] -manager employee relations to follow and assist as needed. Normal [facility] BASIC METABOLIC PANELon 05-2 Anion gap [Moles/Vol] 11 mmol/L Normal 3-13 [facility] Comment on above: Performed By: #### L [id number] ####Pool Player: KWESI SANCHEZ ([phone])[facility]OSPITAL[facility] [place] (SBHLAB)[address] Calcium [Mass/Vol] 9.2 mg/dL Normal 8.8-10.0 [facility] Comment on above: Performed By: #### L [id number] ####Pool Player: KWESI SANCHEZ ([phone])[facility] [place] (SBHLAB)[address] [place] [address] [place] Chloride [Moles/Vol] 99 mmol/L Normal 98-107 [facility] Comment on above: Performed By: #### L [id number] ####Pool Player: KWESI SANCHEZ ([phone])[facility] [place] (SBHLAB)[address] [place] [address] [place] CO2 [Moles/Vol] 24 mmol/L Normal 23-31 [facility] Comment on above: Performed By: #### L [id number] ####Pool Player: KWESI SANCHEZ ([phone])[facility] [place] (SBHLAB)[address] [place] [address] [place] Creatinine [Mass/Vol] 0.85 mg/dL Normal 0.57-1.11 [facility] Comment on above: Performed By: #### L [id number] ####Pool Player: KWESI SANCHEZ ([phone])[facility] [place] (SBHLAB)[address] [place] [address] [place] GLOMERULAR FILTRATION RATE ML/MIN/1.73 SQ M.PREDICTED 74.7 mL/min/1.73m*2 Normal >60.0 [facility] Comment on above: Result Comment: Calc ulation based on the Chronic Kidney Disease Epidemiology Collaboration (CKD-EPI) equation refit without adjustment for race Performed By: #### L [id number] ####Pool Player: KWESI SANCHEZ ([phone])[facility] (SBHLAB)[address] Glucose [Mass/Vol] 106 mg/dL Normal 82-115 [facility] Comment on above: Performed By: #### L [id number] ####Pool Player: KWESI SANCHEZ ([phone])[facility] ([facility] Potassium [Moles/Vol] 4.1 mmol/L Normal 3.5-5.1 [facility] Comment on above: Result Comment: [facility] potassium values may be up to 0.5 mmol/L lower than serum values. Performed By: #### L [id number] ####Pool Player: KWESI SANCHEZ ([phone])[facility] (SBHLAB)[address] Sodium [Moles/Vol] 134 mmol/L Low 136-145 [facility] Comment on above: Performed By: #### L [id number] ####Pool Player: KWESI SANCHEZ ([phone])[facility] (SBHLAB)[address] Urea nitrogen [Mass/Vol] 22 mg/dL Normal 9-23 [facility] Comment on above: Performed By: #### L [id number] ####Pool Player: KWESI SANCHEZ ([phone])[facility] ([facility])[address] CBC WITH AUTO DIFFERENTIALon 10-18-2024 Erythrocyte distribution width (RBC) [Ratio] 14.4 % Normal 11.5-15.0 [facility] Comment on above: Performed By: #### L [id number], [id number] ####Pool Player: KWESI PIKEAGUSTIN ([phone])[facility]OS[facility]ITALMarcos BLACKBURNALTA VISTA REGIONAL HOSPITALRitika (SBHLAB)[address] Hematocrit (Bld) [Volume fraction] 47.6 % High 35.0-47.0 [facility] Comment on above: Performed By: #### L [id number], [id number] ####Pool Player: KWESI PIKEAGUSTIN ([phone])[facility]ITALMarcos [facility] (SBHLAB)[address] Hemoglobin (Bld) [Mass/Vol] 15.3 g/dL Normal 11.7-16.0 [facility] Comment on above: Performed By: #### L [id number], [id number] ####Pool Player: KWESI PIKEAGUSTIN ([phone])[facility]OSPITALMarcos [place] (SBHLAB)[address] [place] [address] MCH (RBC) [Entitic mass] 31.9 pg Normal 26.0-34.0 [facility] Comment on above: Performed By: #### L [id number], [id number] ####Pool Player: KWESI SANCHEZ ([phone])[facility]OSPITALMarcos [place] (SBHLAB)[address] [place] [address] MCHC 32.1 % Normal 30.5-36.0 [facility] Comment on above: Performed By: #### L [id number], [id number] ####Pool Player: KWESI SANCHEZ ([phone])[facility]ITALMarcos [facility] (SBHLAB)[address] MCV (RBC) [Entitic vol] 99.4 fL High 77.0-99.0 [facility] Comment on above: Performed By: #### L [id number], [id number] ####Pool Player: KWESI SANCHEZ ([phone])[facility]ITALMarcos [facility] (SBHLAB)[address] Platelet mean volume (Bld) [Entitic vol] 9.8 fL Normal 9.0-12.7 [facility] Comment on above: Performed By: #### L [id number], [id number] ####Pool Player: KWESI SANCHEZ ([phone])[facility]OSPITALMarcos PED[place] (SBHLAB)[address] Platelets (Bld) [#/Vol] 202 10*3/uL Normal 140-440 [facility] Comment on above: Performed By: #### L [id number], [id number] ####Pool Player: KWESI SANCHEZ ([phone])[facility]ITALMarcos [facility] (SBHLAB)[address] RBC (Bld) [#/Vol] 4.79 10*6/uL Normal 3.80-5.20 [facility] Comment on above: Performed By: #### [place] [id number], [id number] ####Pool Player: KWESI SANCHEZ ([phone])[facility]ITALMarcos [facility] (SBHLAB)[address] WBC (Bld) [#/Vol] 13.9 10*3/uL High 3.6-10.7 [facility] Comment on above: Performed By: #### [place] [id number], [id number] ####Pool Player: KWESI SANCHEZ ([phone])[facility]OS[facility]ITALMarcos [facility] (SBHLAB)[address] MANUAL DIFFERENTIAL (CELLAVI PELON)on 10-18-2024 BAND NEUTROPHILS TOTAL PER COUNTED LEUKOCYTES BY MANUAL COUNT 2 Normal [facility] Comment on above: Performed By: #### L [id number], [id number] ####Pool Player: KWESI SANCHEZ ([phone])[facility]OSPITALMarcos [facility] (SBHLAB)[address] BANDS (10*3/UL) IN BLOOD-CELLAVISION 0.3 10*3/uL High <=0.0 [facility] Comment on above: Performed By: #### L [id number], [id number] ####Pool Player: KWESI SANCHEZ ([phone])[facility] [place] (SBHLAB)[address] BASOPHILS TOTAL PER COUNTED LEUKOCYTES BY MANUAL COUNT Normal [facility] Comment on above: Performed By: #### L [id number], [id number] ####Pool Player: KWESI SANCHEZ ([phone])[facility] [place] (SBHLAB)[address] BLASTS TOTAL PER COUNTED LEUKOCYTES BY MANUAL COUNT Normal [facility] Comment on above: Performed By: #### L [id number], [id number] ####Pool Player: KWESI GOODWINCER ([phone])[facility] [place] (SBHLAB)[address] LUIS CELLS PRESENCE IN BLOOD BY LIGHT MICROSCOPY Moderate Abnormal (none) [facility] Comment on above: Performed By: #### L [id number], [id number] ####Pool Player: KWESI SANCHEZ ([phone])[facility] [place] (SBHLAB)[address] EOSINOPHILS TOTAL PER COUNTED LEUKOCYTES BY MANUAL COUNT [facility] Comment on above: Performed By: #### L [id number], [id number] ####Pool Player: KWESI SANCHEZ ([phone])[facility]ITALA [place] (SBHLAB)[address] LYMPHOCYTES (10*3/UL) IN BLOOD-CELLAVISION 0.8 10*3/uL Low 1.0-4.3 [facility] Comment on above: Performed By: #### L [id number], [id number] ####Pool Player: KWESI SANCHEZ ([phone])[facility] [place] (SBHLAB)[address] [place] [address] [place] LYMPHOCYTES TOTAL PER COUNTED LEUKOCYTES BY MANUAL COUNT [address] [place] [address] Comment on above: Performed By: #### L [id number], [id number] ####Pool Player: KWESI SANCHEZ ([phone])[facility] [place] (SBHLAB)[address] [place] [address] [place] LYMPHOCYTES/100 LEUKOCYTES IN BLOOD-CELLAVISION 6 % Low 15-45 [facility] Comment on above: Performed By: #### L [id number], [id number] ####Pool Player: KWESI SANCHEZ ([phone])[facility] [place] (SBHLAB)[address] [place] [address] [place] METAMYELOCYTES TOTAL PER COUNTED LEUKOCYTES BY MANUAL COUNT [facility] Comment on above: Performed By: #### L [id number], [id number] ####Pool Player: KWESI GOODWINCER ([phone])[facility] [place] (SBHLAB)[address] [place] [address] [place] MONOCYTES (10*3/UL) IN BLOOD-CELLAVISION 1.3 10*3/uL High 0.0-0.9 [facility] Comment on above: Performed By: #### L [id number], [id number] ####Pool Player: KWESI GOODWINCER ([phone])[facility] [place] (SBHLAB)[address] [place] [address] [place] MONOCYTES TOTAL PER COUNTED LEUKOCYTES BY MANUAL COUNT 9 Normal [facility] Comment on above: Performed By: #### L [id number], [id number] ####Pool Player: KWESI SANCHEZ ([phone])[facility] [place] (SBHLAB)[address] [place] [address] [place] MONOCYTES/100 LEUKOCYTES IN BLOOD-CHARLES 9 % Normal 5-13 [facility] Comment on above: Performed By: #### L [id number], [id number] ####Pool Player: KWESI GOODWINCER ([phone])[facility] [place] (SBHLAB)[address] [place] [address] [place] MYELOCYTES COUNTED BY MANUAL COUNT [facility] Comment on above: Performed By: #### L [id number], [id number] ####Pool Player: KWESI GOODWINCER ([phone])[facility] [place] (SBHLAB)[address] [place] [address] [place] NEUTROPHILS BAND FORM/100 LEUKOCYTES IN BLOOD-CELLAVISI 2 % High <=0 [facility] Comment on above: Performed By: #### L [id number], [id number] ####Pool Player: KWESI SANCHEZ ([phone])[facility] [place] (SBHLAB)[address] [place] [address] [place] NEUTROPHILS TOTAL PER COUNTED LEUKOCYTES BY MANUAL COUNT 83 Normal [facility] Comment on above: Performed By: #### L [id number], [id number] ####Pool Player: KWESI SANCHEZ ([phone])[facility] [place] (SBHLAB)[address] [place] [address] [place] POIKILOCYTOSIS (PRESENCE) IN BLOOD BY LIGHT MICROSCOPY Slight Abnormal (none) [facility] Comment on above: Performed By: #### L [id number], [id number] ####Pool Player: KWESI SANCHEZ ([phone])[facility] [place] (SBHLAB)[address] [place] [address] [place] PROMYELOCYTES TOTAL PER COUNTED LEUKOCYTES BY MANUAL COUNT Normal [facility] Comment on above: Performed By: #### L [id number], [id number] ####Pool Player: KWESI SANCHEZ ([phone])[facility] [place] (SBHLAB)[address] [place] [address] [place] RBC MORPHOLOGY IN BLOOD abnormal Normal [facility] Comment on above: Performed By: #### L [id number], [id number] ####Pool Player: KWESI SANCHEZ ([phone])[facility] [place] (SBHLAB)[address] [place] [address] [place] SEGMENTED NEUTROPHILS (10*3/UL) IN BLOOD-CELLAVISION 11.8 10*3/uL High 1.8-7.5 [facility] Comment on above: Performed By: #### L [id number], [id number] ####Pool Player: KWESI SANCHEZ ([phone])[facility] [place] (SBHLAB)[address] SEGMENTED NEUTROPHILS/100 LEUKOCYTES-CE 83 % High 38-82 [facility] Comment on above: Performed By: #### L [id number], [id number] ####Pool Player: KWESI SANCHEZ ([phone])[facility] (SBHLAB)[address] UNCLASSIFIED CELLS TOTAL PER COUNTED LEUKOCYTES BY MANUAL COUNT [facility] Comment on above: Performed By: #### L [id number], [id number] ####Pool Player: KWESI SANCHEZ ([phone])[facility] (SBHLAB)[address] VARIANT LYMPHOCYTES TOTAL PER COUNTED LEUKOCYTES BY MANUAL COUNT [facility] Comment on above: Performed By: #### L [id number], [id number] ####Pool Player: KWESI SANCHEZ ([phone])[facility] (SBHLAB)[address] [place] [address] Progress Noteon 10-18-2024 Progress Note PHYSICAL THERAPY [facility] Name/MRN: Charlie Nguyen ([id number]) Date: 10/18/2024 Chart review completed. PT assessment attempted, patient currently declining to participate in PT and to attempt OOB mobility this date despite multiple options provided. Unable to encourage patient this date. Will continue to follow and re-attempt as appropriate. Nathaly Garcia, PT Normal [facility] BASIC METABOLIC PANELon 05-1 Anion gap [Moles/Vol] 10 mmol/L Normal 3-13 [facility] Comment on above: Performed By: #### L [id number] #### Pool Player: KWESI SANCHEZ ([phone]) [facility] (SBHLAB) [address] Calcium [Mass/Vol] 8.9 mg/dL Normal 8.8-10.0 [facility] Comment on above: Performed By: #### L AB15 #### Pool Player: KWESI SANCHEZ ([phone]) [facility] (SBHLAB) [address] Chloride [Moles/Vol] 100 mmol/L Normal 98-107 [facility] Comment on above: Performed By: #### L AB15 #### Pool Player: KWESI SANCHEZ ([phone]) [facility] (SBHLAB) [address] CO2 [Moles/Vol] 24 mmol/L Normal 23-31 [facility] Comment on above: Performed By: #### L AB15 #### Pool Player: KWESI SANCHEZ ([phone]) [facility] (SBHLAB) [address] Creatinine [Mass/Vol] 0.82 mg/dL Normal 0.57-1.11 [facility] Comment on above: Performed By: #### L AB15 #### Pool Player: KWESI SANCHEZ ([phone]) [facility] (SBHLAB) [address] GLOMERULAR FILTRATION RATE ML/MIN/1.73 SQ M.PREDICTED 78.0 mL/min/1.73m*2 Normal >60.0 [facility] Comment on above: Result Comment: Calc ulation based on the Chronic Kidney Disease Epidemiology Collaboration (CKD-EPI) equation refit without adjustment for race Performed By: #### L AB15 #### Pool Player: KWESI SANCHEZ ([phone]) [facility] (SBHLAB) [address] Glucose [Mass/Vol] 135 mg/dL High 82-115 [facility] Comment on above: Performed By: #### L [id number] #### Pool Player: KWESI SANCHEZ ([phone]) [facility] (HLAB) [address] Potassium [Moles/Vol] 4.5 mmol/L Normal 3.5-5.1 [facility] Comment on above: Result Comment: [facility] potassium values may be up to 0.5 mmol/L lower than serum values. Performed By: #### L AB15 #### Pool Player: KWESI PIKEAGUSTIN ([phone]) [facility]ITALMarc[facility] ALTMAR (SBHLAB) [address] [place] [address] Sodium [Moles/Vol] 134 mmol/L Low 136-145 [facility] Comment on above: Performed By: #### L AB15 #### Pool Player: KWESI PIKEAGUSTIN ([phone]) [facility] (SBHLAB) [address] Urea nitrogen [Mass/Vol] 21 mg/dL Normal 9-23 [facility] Comment on above: Performed By: #### L [id number] #### Pool Player: KWESI ARMSTRONGFERNANDA ([phone]) [facility] (SBHLAB) [address] [place] [address] CBC WITH AUTO DIFFERENTIALon 10-17-2024 Erythrocyte distribution width (RBC) [Ratio] 14.4 % Normal 11.5-15.0 [facility] Comment on above: Performed By: #### L [id number], [id number] ####Pool Player: KWESI ARMSTRONGJAZMINAGUSTIN ([phone])[facility] (SBHLAB)[address] [place] [address] Hematocrit (Bld) [Volume fraction] 43.4 % Normal 35.0-47.0 [facility] Comment on above: Performed By: #### L [id number], [id number] ####Pool Player: KWESI SANCHEZ ([phone])[facility] (SBHLAB)[address] [place] [address] Hemoglobin (Bld) [Mass/Vol] 14.3 g/dL Normal 11.7-16.0 [facility] Comment on above: Performed By: #### L [id number], [id number] ####Pool Player: KWESI PIKEAGUSTIN ([phone])[facility] (SBHLAB)[address] [place] [address] MCH (RBC) [Entitic mass] 32.1 pg Normal 26.0-34.0 [facility] Comment on above: Performed By: #### L [id number], [id number] ####Pool Player: KWESI SANCHEZ ([phone])[facility]A [facility]BAL[facility]N (SBHLAB)[address] MCHC 32.9 % Normal 30.5-36.0 [facility] Comment on above: Performed By: #### L [id number], [id number] ####Pool Player: KWESI SANCHEZ ([phone])[facility] [place] (SBHLAB)[address] MCV (RBC) [Entitic vol] 97.3 fL Normal 77.0-99.0 [facility] Comment on above: Performed By: #### L [id number], [id number] ####Pool Player: KWESI SANCHEZ ([phone])[facility]A [facility] (SBHLAB)[address] Platelet mean volume (Bld) [Entitic vol] 10.3 fL Normal 9.0-12.7 [facility] Comment on above: Performed By: #### L [id number], [id number] ####Pool Player: KWESI SANCHEZ ([phone])[facility]A [facility]BAL[facility]N (SBHLAB)[address] Platelets (Bld) [#/Vol] 209 10*3/uL Normal 140-440 [facility] Comment on above: Performed By: #### L [id number], [id number] ####Pool Player: KWESI SANCHEZ ([phone])[facility]A [facility]BAL[facility]N (SBHLAB)[address] RBC (Bld) [#/Vol] 4.46 10*6/uL Normal 3.80-5.20 [facility] Comment on above: Performed By: #### L [id number], [id number] ####Pool Player: KWESI SANCHEZ ([phone])[facility]A BARBALTA [facility]ITALN (SBHLAB)[address] [place] [address] WBC (Bld) [#/Vol] 16.1 10*3/uL High 3.6-10.7 [facility] Comment on above: Performed By: #### L [id number], [id number] ####Pool Player: KWESI SANCHEZ ([phone])[facility]OSPITALMarcos CORTEZRitika (SBHLAB)[address] [place] [address] COMPLETE URINALYSIS WITH REF BALAJI TO CULTUREon 10-17-2024 BACTERIA (#/HPF) IN URINE Loaded Abnormal Negative [facility] Comment on above: Performed By: #### L [id number] ####Pool Player: KWESI SANCHEZ ([phone])[facility]OSPITALMarcos [place]ACK[place]NSWAPNA (SBHLAB)[address] [place] [address]#### [id number] ####Pool Player: KRISTEN DAIGLE ([phone])[facility] ([facility])[address] [place] [address] BILIRUBIN, TOTAL PRESENCE IN URINE Negative Normal Negative [facility] Comment on above: Performed By: #### L [id number] ####Pool Player: KWESI SANCHEZ ([phone])[facility]OS[facility]ITALMarcos BLACKBURNALTA VISTA REGIONAL HOSPITALRitika (SBHLAB)[address] [place] [address]#### [id number] ####Pool Player: KRISTEN DAIGLE ([phone])[facility] ([facility])[address] [place] [address] Clarity (U) Turbid Abnormal Clear [facility] Comment on above: Performed By: #### L [id number] ####Pool Player: KWESI SANCHEZ ([phone])[facility]OS[facility]ITALMarcos [facility] (SBHLAB)[address] [place] [address]#### [id number] ####Pool Player: KRISTEN DAIGLE ([phone])[facility] ([facility])[address] [place] [address] Color (U) Yellow Normal Lt. Yellow [facility] Comment on above: Performed By: #### L [id number] ####Pool Player: KWESI SANCHEZ ([phone])[facility] SHELLIALTA VIST[facility] REGION[facility] HOSPITALN (SBHLAB)[address] [place] [address] [place]#### [id number] ####Pool Player: KRISTEN DAIGLE ([phone])[facility] ([facility])[address] [place] [address] GLUCOSE (MG/DL) IN URINE Normal Normal Normal (<70 ) [facility] Comment on above: Performed By: #### L [id number] ####Pool Player: KWESI SANCHEZ ([phone])[facility] (SBHLAB)[address] [place] [address] [place]#### [id number] ####Pool Player: KRISTEN DAIGLE ([phone])[facility] ([facility])[address] [place] [address] HEMOGLOBIN PRESENCE IN URINE 1.0 mg/dL Abnormal Negative [facility] Comment on above: Performed By: #### L [id number] ####Pool Player: KWESI SANCHEZ ([phone])[facility] (SBHLAB)[address] [place] [address] [place]#### [id number] ####Pool Player: KRISTEN DAIGLE ([phone])[facility] ([facility])[address] [place] [address] Ketones Ql (U) Negative Normal Negative [facility] Comment on above: Performed By: #### L [id number] ####Pool Player: KWESI SANCHEZ ([phone])[facility] (SBHLAB)[address] [place] [address] [place]#### [id number] ####Pool Player: KRISTEN DAIGLE ([phone])[facility] ([facility])[address] [place] [address] LEUKOCYTE ESTERASE PRESENCE IN URINE BY TEST STRIP 500 Simon/uL Abnormal Negative [facility] Comment on above: Performed By: #### L [id number] ####Pool Player: KWESI SANCHEZ ([phone])[facility] (SBHLAB)[address]#### [id number] ####Pool Player: KRISTEN DAIGLE ([phone])[facility] ([facility])[address] [place] [address] MUCUS (#/LPF) IN URINE SEDIMENT Few Normal Negative [facility] Comment on above: Performed By: #### L [id number] ####Pool Player: KWESI SANCHEZ ([phone])[facility]A BARBALTA [facility]ITALN (SBHLAB)[address] [place] [address]#### [id number] ####Pool Player: KRISTEN DAIGLE ([phone])[facility])[address] [place] [address] NITRITE PRESENCE IN URINE Positive Abnormal Negative [facility] Comment on above: Performed By: #### L [id number] ####Pool Player: KWESI SANCHEZ ([phone])[facility] ([facility] [place] [address]#### [id number] ####Pool Player: KRISTEN DAIGLE ([phone])[facility])[address] [place] [address] pH (U) 6.5 [pH] Normal 5.0-8.0 [facility] Comment on above: Performed By: #### L [id number] ####Pool Player: KWESI SANCHEZ ([phone])[facility] ([facility] [place] [address]#### [id number] ####Pool Player: KRISTEN DAIGLE ([phone])[facility])[address] [place] [address] Protein (U) [Mass/Vol] 70 mg/dL Abnormal Negative [facility] Comment on above: Performed By: #### L [id number] ####Pool Player: KWESI SANCHEZ ([phone])[facility] (SB[facility])[address] [place] [address] [place]#### [id number] ####Pool Player: KRISTEN DAIGLE ([phone])[facility] ([facility])[address] [place] [address] RBC (#/HPF) IN URINE SEDIMENT 51-100 Abnormal 0-2 [facility] [facility] Comment on above: Performed By: #### L [id number] ####Pool Player: KWESI SANCHEZ ([phone])[facility] (SB[facility])[address] [place] [address]#### [id number] ####Pool Player: KRISTEN DAIGLE ([phone])[facility] ([facility])[address] [place] [address] Specific gravity (U) [Rel density] 1.022 Normal 1.005-1.030 [facility] Comment on above: Result Comment: LAVON Gong COMMENTS: This specimen has been reflexed to urine culture. Performed By: #### L [id number] ####Pool Player: KWESI SANCHEZ ([phone])[facility]ITAL[facility] (SBHLAB)[address] [place] [address]#### [id number] ####Pool Player: KRISTEN DAIGLE ([phone])[facility] (SACLAB)[address] [place] [address] SQUAMOUS EPITHELIAL CELLS (#/HPF) IN URINE SEDIMENT 3-5 Normal 3-5 [facility] Comment on above: Performed By: #### L [id number] ####Pool Player: KWESI SANCHEZ ([phone])[facility] (SBHLAB)[address] [place] [address]#### [id number] ####Pool Player: KRISTEN DAIGLE ([phone])[facility])[address] [place] [address] UROBILINOGEN (MG/DL) IN URINE 2 mg/dL Abnormal Normal (0-1) [facility] Comment on above: Performed By: #### L [id number] ####Pool Player: KWESI SANCHEZ ([phone])[facility] (SBHLAB)[address] [place] [address] [place]#### [id number] ####Pool Player: KRISTEN DAIGLE ([phone])[facility] ([facility]AC[facility])[address] [place] [address] WBC (LEUKOCYTE) (#/HPF) IN URINE SEDIMENT 51-100 Abnormal 0-5 [facility] Comment on above: Performed By: #### L [id number] ####Pool Player: KWESI SANCHEZ ([phone])[facility]ITAL[facility] CORTEZ (SBHLAB)[address] [place] [address] [place]#### [id number] ####Pool Player: KRISTEN DAIGLE ([phone])[facility] ([facility])[address] [place] [address] ECG 12-LEADon 10-17-2024 ECG 12-LEAD IMPRESSION: Sinus rhythm Low voltage, precordial leads Nonspecific T abnormalities, lateral leads Electronically Signed On 10-17-2024 14:36:48 EDT by Sulaiman Ricks Normal [facility] ED Nursing Noteon 10-17-2024 ED Nursing [...] her comments do not make sense. Normal [facility] ED Nursing Note Pt incontinent of urine and stool. Pt was cleaned up and placed in gown. New pure wick applied and pt aware of need for urine sample. Normal [facility] ED Provider Noteon ED Provider Note [...] who have . They report that her [place] [facility] is concerned for urinary tract infection, as [...] Family History[3] SOCIAL HISTORY Social History[4] SCREENINGS Federico Coma Scale Best Eye Response: Spontaneous Best Verbal Response: Oriented Best Motor Response: Follows commands [place] Coma Scale Score: 15 PHYSICAL EXAM ED [...] 3-5 Bacteri (more content not included)... Normal [facility] MANUAL DIFFERENTIAL (CELLAVI PELON)on 10-17-2024 BAND NEUTROPHILS TOTAL PER COUNTED LEUKOCYTES BY MANUAL COUNT Normal [facility] Comment on above: Performed By: #### L [id number], [id number] ####Pool Player: KWESI SANCHEZ ([phone])[facility] [place] (SBHLAB)[address] BASOPHILS TOTAL PER COUNTED LEUKOCYTES BY MANUAL COUNT Normal [facility] Comment on above: Performed By: #### L [id number], [id number] ####Pool Player: KWESI SANCHEZ ([phone])[facility] [place] (SBHLAB)[address] BLASTS TOTAL PER COUNTED LEUKOCYTES BY MANUAL COUNT [facility] Comment on above: Performed By: #### L [id number], [id number] ####Pool Player: KWESI SANCHEZ ([phone])[facility] [place] (SBHLAB)[address] DACROCYTES PRESENCE IN BLOOD BY LIGHT MICROSCOPY Slight Abnormal (none) [facility] Comment on above: Performed By: #### L [id number], [id number] ####Pool Player: WKESI SANCHEZ ([phone])[facility] [place] (SBHLAB)[address] EOSINOPHILS TOTAL PER COUNTED LEUKOCYTES BY MANUAL COUNT [facility] Comment on above: Performed By: #### L [id number], [id number] ####Pool Player: KWESI SANCHEZ ([phone])[facility] [place] (SBHLAB)[address] [place] [address] [place] LYMPHOCYTES (10*3/UL) IN BLOOD-CELLAVISION 0.6 10*3/uL Low 1.0-4.3 [facility] Comment on above: Performed By: #### L [id number], [id number] ####Pool Player: KWESI SANCHEZ ([phone])[facility] [place] (SBHLAB)[address] [place] [address] [place] LYMPHOCYTES TOTAL PER COUNTED LEUKOCYTES BY MANUAL COUNT 4 Normal [facility] Comment on above: Performed By: #### L [id number], [id number] ####Pool Player: KWESI SANCHEZ ([phone])[facility] [place] (SBHLAB)[address] [place] [address] [place] LYMPHOCYTES/100 LEUKOCYTES IN BLOOD-CELLAVISION 4 % Low 15-45 [facility] Comment on above: Performed By: #### L [id number], [id number] ####Pool Player: KWESI SANCHEZ ([phone])[facility] [place] (SBHLAB)[address] [place] [address] [place] METAMYELOCYTES TOTAL PER COUNTED LEUKOCYTES BY MANUAL COUNT Normal [facility] Comment on above: Performed By: #### L [id number], [id number] ####Pool Player: KWESI SANCHEZ ([phone])[facility] [place] (SBHLAB)[address] [place] [address] [place] MONOCYTES (10*3/UL) IN BLOOD-CELLAVISION 1.8 10*3/uL High 0.0-0.9 [facility] Comment on above: Performed By: #### L [id number], [id number] ####Pool Player: KWESI SANCHEZ ([phone])[facility] [place] (SBHLAB)[address] [place] [address] [place] MONOCYTES TOTAL PER COUNTED LEUKOCYTES BY MANUAL COUNT 11 Normal [facility] Comment on above: Performed By: #### L [id number], [id number] ####Pool Player: KWESI SANCHEZ ([phone])[facility] [place] (SBHLAB)[address] [place] [address] [place] MONOCYTES/100 LEUKOCYTES IN BLOOD-CHARLES 11 % Normal 5-13 [facility] Comment on above: Performed By: #### L [id number], [id number] ####Pool Player: KWESI SANCHEZ ([phone])[facility] [place] (SBHLAB)[address] [place] [address] [place] MYELOCYTES COUNTED BY MANUAL COUNT [facility] Comment on above: Performed By: #### L [id number], [id number] ####Pool Player: KWESI SANCHEZ ([phone])[facility] [place] (SBHLAB)[address] NEUTROPHILS TOTAL PER COUNTED LEUKOCYTES BY MANUAL COUNT 88 Normal [facility] Comment on above: Performed By: #### L [id number], [id number] ####Pool Player: KWESI SANCHEZ ([phone])[facility] [place] (SBHLAB)[address] POIKILOCYTOSIS (PRESENCE) IN BLOOD BY LIGHT MICROSCOPY Slight Abnormal (none) [facility] Comment on above: Performed By: #### L [id number], [id number] ####Pool Player: KWESI SANCHEZ ([phone])[facility] ([facility])[address] POLYCHROMASIA IN BLOOD BY LIGHT MICROSCOPY Slight Abnormal (none) [facility] Comment on above: Performed By: #### L [id number], [id number] ####Pool Player: KWESI SANCHEZ ([phone])[facility] (SBHLAB)[address] [place] [address] [place] PROMYELOCYTES TOTAL PER COUNTED LEUKOCYTES BY MANUAL COUNT Normal [facility] Comment on above: Performed By: #### L [id number], [id number] ####Pool Player: KWESI SANCHEZ ([phone])[facility] (SBHLAB)[address] [place] [address] [place] RBC MORPHOLOGY IN BLOOD abnormal Normal [facility] Comment on above: Performed By: #### L [id number], [id number] ####Pool Player: KWESI SANCHEZ ([phone])[facility] ([facility])[address] [place] [address] [place] SEGMENTED NEUTROPHILS (10*3/UL) IN BLOOD-CELLAVISION 13.7 10*3/uL High 1.8-7.5 [facility] Comment on above: Performed By: #### L [id number], [id number] ####Pool Player: KWESIJA SANCHEZ ([phone])[facility] ([facility])[address] SEGMENTED NEUTROPHILS/100 LEUKOCYTES-CE 85 % High 38-82 [facility] Comment on above: Performed By: #### L [id number], [id number] ####Pool Player: KWESI DANIEL ([phone])[facility] STOMATOCYTES IN BLOOD BY LIGHT MICROSCOPY Slight Abnormal (none) [facility] Comment on above: Performed By: #### L [id number], [id number] ####Pool Player: KWESIJA SANCHEZ ([phone])[facility] ([facility])[address] UNCLASSIFIED CELLS TOTAL PER COUNTED LEUKOCYTES BY MANUAL COUNT Normal [facility] Comment on above: Performed By: #### L [id number], [id number] ####Pool Player: KWESI DANIEL ([phone])[facility] ([facility])[address] VARIANT LYMPHOCYTES TOTAL PER COUNTED LEUKOCYTES BY MANUAL COUNT [facility] Comment on above: Performed By: #### L [id number], [id number] ####Pool Player: KWESI ARMSTRONGFERNANDA ([phone])[facility] ([facility])[address] [place] [address] SARS-COV-2, FLU A/B, AND RSV COMBOon 10-17-2024 [...] In compliance with this authorization, please visit www.fda.gov/media/142 725/download or www.fda.gov/media/142 572/download to access the applicable information sheets. Normal [facility] Comment on above: Performed By: #### L [id number] #### Pool Player: KWESI SANCHEZ ([phone]) [facility] [address] [place] [address] URINE CULTUREon 10-17-2024 Bacteria identified Cx Nom [...] Non-susceptible NO = No Interpretation ] Normal [facility] Comment on above: Performed By: #### L [id number] ####Pool Player: KWESI SANCHEZ ([phone])[facility] (SBAB)[address] [place] [address]#### [id number] ####Pool Player: KRISTEN DAIGLE ([phone])[facility] ([place] [id number] [facility] Anion gap in Serum or Plasma Ordered By: Royer Reagan on 08-10-2024 Anion gap [Moles/Vol] 13 mmol/L 5-15 [facility] BUN/creatinine ratioOrdered By: Royer Reagan on 08-10-2024 Urea nitrogen/Creatinine [Mass ratio] 24.2 mg/mg High 10-20 [facility] Bilirubin, totalOrdered By: Royer Reagan on 08-10-2024 Bilirubin [Mass/Vol] 0.39 mg/dL 0.00-1.30 [facility] Carbon dioxide, total [Moles /volume] in Central venous bloodOrdered By: Royer Reagan on 08-10-2024 CO2 [Moles/Vol] 22.7 mmol/L 21.0-32.0 [facility] Chloride assayOrdered By: oziel Reagan on 08-10-2024 Chloride [Moles/Vol] 105 mmol/L 98-108 [facility] Erythrocyte distribution wid th (RBC) [Ratio]Ordered By: Royer Reagan on 08-10-2024 Erythrocyte distribution width (RBC) [Entitic vol] 53.2 fL High 35.1-43.9 [facility] Erythrocyte distribution wid th ratioOrdered By: Royer Reagan on 08-10-2024 Erythrocyte distribution width (RBC) [Ratio] 14.4 % 11.6-14.6 [facility] GFR/1.73 sq M.predicted darnell g non-blacks MDRD (S/P/Bld) [Vol rate/Area]Ordered By: Royer Reagan on 08-10-2024 Estimated GFR (MDRD) Non-Af Amer 69 >60 [facility] Comment on above: mL/min/1.73m2 CKD-EP I Creatinine Equation (2020) Hematocrit Auto (Bld) [Volum e fraction]Ordered By: Royer Reagan on 08-10-2024 Hematocrit (Bld) [Volume fraction] 43.0 % 37-47 [facility] Hemoglobin measurementOrdere d By: Royer Reagan on 08-10-2024 Hemoglobin (Bld) [Mass/Vol] 13.9 g/dL 12.0-15.0 [facility] Laboratory - Chemistry and C hemistry - challengeOrdered By: Royer Reagan on 08-10-2024 AST [Catalytic activity/Vol] 23 U/L <32 [facility] MCV (mean corpuscular volume ) determinationOrdered By: Royer Reagan on 08-10-2024 MCV (RBC) [Entitic vol] 99.8 fL High 81-99 [facility] Mean corpuscular hemoglobin (MCH) determinationOrdered By: Royer Reagan on 08-10-2024 MCH (RBC) [Entitic mass] 32.3 pg High 27.0-32.0 [facility] Mean corpuscular hemoglobin concentration (MCHC) determinationOrdered By: Royer Reagan on 08-10-2024 MCHC (RBC) [Mass/Vol] 32.3 g/dL 32-36 [facility] Mean platelet volume determi nationOrdered By: Royer Reagan on 08-10-2024 Platelet mean volume (Bld) [Entitic vol] 9.9 fL 6.2-12.0 [facility] Platelet countOrdered By: Adam Reagan on 08-10-2024 Platelets (Bld) [#/Vol] 189 10*3/uL 150-450 [facility] Potassium (Unsp spec) [Mass/ Vol]Ordered By: Royer Reagan on 08-10-2024 Potassium [Moles/Vol] 4.2 mmol/L 3.3-5.1 [facility] RBC Auto (Bld) [#/Vol]Ordere d By: Royer Reagan on 08-10-2024 RBC (Bld) [#/Vol] 4.31 10*6/uL 4.2-5.[address] [facility] Serum creatinine measurement (mass/volume)Ordered By: Royer Reagan on 08-10-2024 Creatinine [Mass/Vol] 0.91 mg/dL 0.70-1.20 [facility] Serum globulin measurementOr dered By: Royer Reagan on 08-10-2024 Globulin (S) [Mass/Vol] 3.3 g/dL 2.2-4.2 [facility] Serum glucose measurement (m ass/volume)Ordered By: Royer Reagan on 08-10-2024 Glucose [Mass/Vol] 118 mg/dL High 70-99 [facility] Serum or plasma alanine leung otransferase (ALT) measurementOrdered By: Royer Reagan on 08-10-2024 ALT [Catalytic activity/Vol] 15 U/L <35 [facility] Serum or plasma albumin tammie urement (mass/volume)Ordered By: Royer Reagan on 08-10-2024 Albumin [Mass/Vol] 3.5 g/dL 3.4-4.8 [facility] Serum or plasma albumin/glob ulin mass ratioOrdered By: Royer Reagan on 08-10-2024 Albumin/Globulin [Mass ratio] 1.1 {ratio} 0.9-2.4 [facility] Serum or plasma alkaline rosey sphatase measurementOrdered By: Royer Reagan on 08-10-2024 ALP [Catalytic activity/Vol] 72 U/L 35-104 [facility] Serum or plasma calcium tammie urement (mass/volume)Ordered By: Royer Reagan on 08-10-2024 Calcium [Mass/Vol] 8.9 mg/dL 7.6-11.0 [facility] Serum or plasma urea nitroge n measurement (mass/volume)Ordered By: Royer Reagan on 08-10-2024 Urea nitrogen [Mass/Vol] 22 mg/dL High 4-19 [facility] Sodium levelOrdered By: Ismael Reagan on 08-10-2024 Sodium [Moles/Vol] 140 mmol/L 133-145 [facility] Total proteinOrdered By: Ori Reagan on 08-10-2024 Protein [Mass/Vol] 6.8 g/dL 5.9-8.4 [facility] White blood cell (WBC) count Ordered By: Royer Reagan on 08-10-2024 WBC (Bld) [#/Vol] 6.2 10*3/uL 4.4-11.0 [facility] CNPNon 07-18-2024 [facility] Telephone ([facility]WADS) PATRICKCHARLIE A ([id number]) 1955 F CHT Date Time Provider Department 07/18/24 MORENO OATES During your visit today, we recorded the following information about you: Fadumo Rahman LPN 07/18/2024 10:26 AM Signed Received 07/18/2024 from [facility]. Placed in provider's inbox for review. Route to [place] for scanning. Allergies As of Date: 07/18/2024 [...] Reason for Visit: Received Outside Medical Records [[id number]] Cmt: [facility] ([facility]) Labs 07/12/2024 Order(s):[facility] (EXTERNAL) [[id number]] Order #: [id number] Prescriptions as of 07/18/2024 - diazePAM (VALIUM) [...] total knee (more content not included)... Normal [facility] Albumin to globulin ratioon 07-12-2024 Albumin/Globulin [Mass ratio] 0.7 {ratio} Low 0.9-2.4 [facility] Bilirubin, totalOrdered By: Ender Oates on 07-12-2024 Bilirubin [Mass/Vol] 0.60 mg/dL 0.20-1.00 [facility] Comment on above: For patients on eltr ombopag therapy, use of Dimension [place] TBIL is not recommended. Blood urea nitrogen (BUN)/cr eatinine ratioOrdered By: Ender Oates on 07-12-2024 Urea nitrogen/Creatinine [Mass ratio] 30.7 mg/mg High 03-20 [facility] CMP (EXTERNAL)on 07-12-2024 Alk Phos Total 80 U/L 45 - 117 U/L [facility] Bili Total 0.6 mg/dL 0.2 - 1 mg/dL [facility] CO2 [Moles/Vol] 27 mmol/L [facility] GFR 78 mL/MIN [facility] GFR AFR AMER 94 mL/MIN [facility] Globulin 4.6 [facility] Interpretation and review of laboratory results Abnormal [facility] Carbon dioxide measurementOr dered By: Ender Oates on 07-12-2024 CO2 [Moles/Vol] 27.0 mmol/L 21.0-32.0 [facility] Chloride measurementon 07-12 Chloride [Moles/Vol] 107 mmol/L 98-107 [facility] Erythrocyte distribution wid th (RBC) [Ratio]Ordered By: Ender Oates on 07-12-2024 Erythrocyte distribution width (RBC) [Entitic vol] 54.0 fL High 35.1-43.9 [facility] Erythrocyte distribution wid th ratioOrdered By: Ender Oates on 07-12-2024 Erythrocyte distribution width (RBC) [Ratio] 14.4 % 11.6-14.6 [facility] Estimated glomerular filtrat ion rate (GFR) AmericanOrdered By: Ender Oates on 07-12-2024 Estimated GFR (MDRD) Amer 94 mL/min >60 [facility] Comment on above: GFR Calc Glomerular filtration rate ( GFR) estimationOrdered By: Ender Oates on 07-12-2024 Estimated GFR (MDRD) Non-Af Amer 78 mL/min >60 [facility] Comment on above: Non- GFR Calc Glucose measurementon 2024 Glucose [Mass/Vol] 97 mg/dL 74-106 [facility] Hematocrit Auto (Bld) [Volum e fraction]Ordered By: Ender Oates on 07-12-2024 Hematocrit (Bld) [Volume fraction] 47.4 % High 37-47 [facility] Hemoglobin measurementOrdere d By: Ender Oates on 07-12-2024 Hemoglobin (Bld) [Mass/Vol] 14.9 g/dL 12.0-15.0 [facility] Laboratory - Chemistry and C hemistry - challengeon 07-12-2024 AST [Catalytic activity/Vol] 23 U/L 15-37 [facility] Comment on above: Slight Hemolysis, Re sult may be falsely increased. MCV (mean corpuscular volume ) determinationOrdered By: Ender Oates on 07-12-2024 MCV (RBC) [Entitic vol] 100.4 fL High 81-99 [facility] Mean corpuscular hemoglobin (MCH) determinationOrdered By: Ender Oates on 07-12-2024 MCH (RBC) [Entitic mass] 31.6 pg 27.0-32.0 [facility] Mean corpuscular hemoglobin concentration (MCHC) determinationOrdered By: Ender Oates on 07-12-2024 MCHC (RBC) [Mass/Vol] 31.4 g/dL Low 32-36 [facility] Mean platelet volume determi nationOrdered By: Ender Oates on 07-12-2024 Platelet mean volume (Bld) [Entitic vol] 10.4 fL 6.2-12.0 [facility] Platelet countOrdered By: Donnie Oates on 07-12-2024 Platelets (Bld) [#/Vol] 180 10*3/uL 150-450 [facility] Potassium measurementon 07-02 Potassium [Moles/Vol] 4.4 mmol/L 3.5-5.1 [facility] Comment on above: Slight Hemolysis, Re sult may be falsely increased. RBC Auto (Bld) [#/Vol]Ordere d By: Ender Oates on 07-12-2024 RBC (Bld) [#/Vol] 4.72 10*6/uL 4.2-5.[address] [facility] Serum anion gap measurementO rdered By: Ender Oates on 07-12-2024 Anion gap [Moles/Vol] 4 mmol/L Low 5-15 [facility] Serum globulin measurementOr dered By: Ender Oates on 07-12-2024 Globulin (S) [Mass/Vol] 4.6 g/dL High 2.2-4.2 [facility] Serum or plasma alanine leung otransferase (ALT) measurementon 07-12-2024 ALT [Catalytic activity/Vol] 20 U/L 13-56 [facility] Serum or plasma albumin tammie urement (mass/volume)on 07-12-2024 Albumin [Mass/Vol] 3.2 g/dL 3.2-5.0 [facility] Serum or plasma alkaline rosey sphatase measurementOrdered By: Ender Oates on 07-12-2024 ALP [Catalytic activity/Vol] 80 U/L 45-117 [facility] Serum or plasma calcium tammie urement (mass/volume)on 07-12-2024 Calcium [Mass/Vol] 8.9 mg/dL 8.5-10.1 [facility] Serum or plasma creatinine m easurement (mass/volume)on 07-12-2024 Creatinine [Mass/Vol] 0.78 mg/dL 0.55-1.02 [facility] Comment on above: The validity of the calculated GFR & GFRAA in patients over 70 years has not been determined. Clinical correlation is essential. Serum or plasma urea nitroge n measurement (mass/volume)on 07-12-2024 Urea nitrogen [Mass/Vol] 24 mg/dL High 7-18 [facility] Sodium levelon 07-12-2024 Sodium [Moles/Vol] 138 mmol/L 136-145 [facility] Total proteinon 07-12-2024 Protein [Mass/Vol] 7.8 g/dL 6.4-8.2 [facility] White blood cell (WBC) count Ordered By: Ender Oates on 07-12-2024 WBC (Bld) [#/Vol] 6.2 10*3/uL 4.4-11.0 [facility] Albumin to globulin ratioOrd ered By: Royer Reagan on 07-04-2024 Albumin/Globulin [Mass ratio] 0.7 {ratio} Low 0.9-2.4 [facility] Bilirubin, totalOrdered By: Royer Reagan on 07-04-2024 Bilirubin [Mass/Vol] 0.40 mg/dL 0.20-1.00 [facility] Comment on above: For patients on eltr ombopag therapy, use of Dimension [place] TBIL is not recommended. Blood urea nitrogen (BUN)/cr eatinine ratioOrdered By: Royer Reagan on 07-04-2024 Urea nitrogen/Creatinine [Mass ratio] 22.4 mg/mg High 10-20 [facility] Carbon dioxide measurementOr dered By: Royer Reagan on 07-04-2024 CO2 [Moles/Vol] 27.0 mmol/L 21.0-32.0 [facility] Chloride measurementOrdered By: Royer Reagan on 07-04-2024 Chloride [Moles/Vol] 102 mmol/L 98-107 [facility] Erythrocyte distribution wid th (RBC) [Ratio]Ordered By: Royer Reagan on 07-04-2024 Erythrocyte distribution width (RBC) [Entitic vol] 55.4 fL High 35.1-43.9 [facility] Erythrocyte distribution wid th ratioOrdered By: Royer Reagan on 07-04-2024 Erythrocyte distribution width (RBC) [Ratio] 14.6 % 11.6-14.6 [facility] Estimated glomerular filtrat ion rate (GFR) AmericanOrdered By: Royer Reagan on 07-04-2024 Estimated GFR (MDRD) Amer 76 mL/min >60 [facility] Comment on above: GFR Calc Glomerular filtration rate ( GFR) estimationOrdered By: Royer Reagan on 07-04-2024 Estimated GFR (MDRD) Non-Af Amer 63 mL/min >60 [facility] Comment on above: Non- GFR Calc Glucose measurementOrdered B y: Royer Reagan on 07-04-2024 Glucose [Mass/Vol] 143 mg/dL High 74-106 [facility] Comment on above: Fasting Glucose resu lt greater than or equal to 126 mg/dL suggests DIABETES MELLITUS per A.D.A. criteria. Hematocrit Auto (Bld) [Volum e fraction]Ordered By: Royer Reagan on 07-04-2024 Hematocrit (Bld) [Volume fraction] 47.0 % 37-47 [facility] Hemoglobin measurementOrdere d By: Royer Reagan on 07-04-2024 Hemoglobin (Bld) [Mass/Vol] 14.4 g/dL 12.0-15.0 [facility] Laboratory - Chemistry and C hemistry - challengeOrdered By: Royer Reagan on 07-04-2024 AST [Catalytic activity/Vol] 20 U/L 15-37 [facility] MCV (mean corpuscular volume ) determinationOrdered By: Royer Reagan on 07-04-2024 MCV (RBC) [Entitic vol] 102.8 fL High 81-99 [facility] Mean corpuscular hemoglobin (MCH) determinationOrdered By: Royer Reagan on 07-04-2024 MCH (RBC) [Entitic mass] 31.5 pg 27.0-32.0 [facility] Mean corpuscular hemoglobin concentration (MCHC) determinationOrdered By: Royer Reagan on 07-04-2024 MCHC (RBC) [Mass/Vol] 30.6 g/dL Low 32-36 [facility] Mean platelet volume determi nationOrdered By: Royer Reagan on 07-04-2024 Platelet mean volume (Bld) [Entitic vol] 10.2 fL 6.2-12.0 [facility] Platelet countOrdered By: Adam Reagan on 07-04-2024 Platelets (Bld) [#/Vol] 221 10*3/uL 150-450 [facility] Potassium measurementOrdered By: Royer Reagan on 07-04-2024 Potassium [Moles/Vol] 4.2 mmol/L 3.5-5.1 [facility] RBC Auto (Bld) [#/Vol]Ordere d By: Royer Reagan on 07-04-2024 RBC (Bld) [#/Vol] 4.57 10*6/uL 4.2-5.[address] [facility] Serum anion gap measurementO rdered By: Royer Reagan on 07-04-2024 Anion gap [Moles/Vol] 7 mmol/L 5-15 [facility] Serum globulin measurementOr dered By: Royer Reagan on 07-04-2024 Globulin (S) [Mass/Vol] 4.5 g/dL High 2.2-4.2 [facility] Serum or plasma alanine leung otransferase (ALT) measurementOrdered By: Royer Reagan on 07-04-2024 ALT [Catalytic activity/Vol] 23 U/L 13-56 [facility] Serum or plasma albumin tammie urement (mass/volume)Ordered By: Royer Reagan on 07-04-2024 Albumin [Mass/Vol] 3.3 g/dL 3.2-5.0 [facility] Serum or plasma alkaline rosey sphatase measurementOrdered By: Royer Reagan on 07-04-2024 ALP [Catalytic activity/Vol] 89 U/L 45-117 [facility] Serum or plasma calcium tammie urement (mass/volume)Ordered By: Royer Reagan on 07-04-2024 Calcium [Mass/Vol] 8.6 mg/dL 8.5-10.1 [facility] Serum or plasma creatinine m easurement (mass/volume)Ordered By: Royer Reagan on 07-04-2024 Creatinine [Mass/Vol] 0.94 mg/dL 0.55-1.02 [facility] Comment on above: The validity of the calculated GFR & GFRAA in patients over 70 years has not been determined. Clinical correlation is essential. Serum or plasma urea nitroge n measurement (mass/volume)Ordered By: Royer Reagan on 07-04-2024 Urea nitrogen [Mass/Vol] 21 mg/dL High 7-18 [facility] Sodium levelOrdered By: Ismael Reagan on 07-04-2024 Sodium [Moles/Vol] 136 mmol/L 136-145 [facility] Total proteinOrdered By: Ori Reagan on 07-04-2024 Protein [Mass/Vol] 7.8 g/dL 6.4-8.2 [facility] White blood cell (WBC) count Ordered By: Royer Reagan on 07-04-2024 WBC (Bld) [#/Vol] 6.8 10*3/uL 4.4-11.0 [facility] Albumin to globulin ratioOrd ered By: Ender Oates on 05-11-2024 Albumin/Globulin [Mass ratio] 0.8 {ratio} Low 0.9-2.4 [facility] Bilirubin, totalOrdered By: Ender Oates on 05-11-2024 Bilirubin [Mass/Vol] 0.40 mg/dL 0.20-1.00 [facility] Comment on above: For patients on eltr ombopag therapy, use of Dimension [place] TBIL is not recommended. Blood urea nitrogen (BUN)/cr eatinine ratioOrdered By: Ender Oates on 05-11-2024 Urea nitrogen/Creatinine [Mass ratio] 32.1 mg/mg High 10-20 [facility] Carbon dioxide measurementOr dered By: Ender Oates on 05-11-2024 CO2 [Moles/Vol] 29.0 mmol/L 21.0-32.0 [facility] Chloride measurementOrdered By: Ender Oates on 05-11-2024 Chloride [Moles/Vol] 108 mmol/L High 98-107 [facility] Erythrocyte distribution wid th (RBC) [Ratio]Ordered By: Ender Oates on 05-11-2024 Erythrocyte distribution width (RBC) [Entitic vol] 59.7 fL High 35.1-43.9 [facility] Erythrocyte distribution wid th ratioOrdered By: Ender Oates on 05-11-2024 Erythrocyte distribution width (RBC) [Ratio] 15.8 % High 11.6-14.6 [facility] Estimated glomerular filtrat ion rate (GFR) AmericanOrdered By: Ender Oates on 05-11-2024 Estimated GFR (MDRD) Amer 95 mL/min >60 [facility] Comment on above: GFR Calc Glomerular filtration rate ( GFR) estimationOrdered By: Ender Oates on 05-11-2024 Estimated GFR (MDRD) Non-Af Amer 78 mL/min >60 [facility] Comment on above: Non- GFR Calc Glucose measurementOrdered B y: Ender Oates on 05-11-2024 Glucose [Mass/Vol] 109 mg/dL High 74-106 [facility] Comment on above: Fasting Glucose resu lt from 100 to 125 mg/dL suggests IMPAIRED HOMEOSTASIS per A.D.A. criteria. Hematocrit Auto (Bld) [Volum e fraction]Ordered By: Ender Oates on 05-11-2024 Hematocrit (Bld) [Volume fraction] 43.3 % 37-47 [facility] Hemoglobin measurementOrdere d By: Ender Oates on 05-11-2024 Hemoglobin (Bld) [Mass/Vol] 13.4 g/dL 12.0-15.0 [facility] - Chemistry and C hemistry - challengeOrdered By: Ender Oates on 05-11-2024 AST [Catalytic activity/Vol] 18 U/L 15-37 [facility] Comment on above: Moderate Hemolysis, Result may be falsely increased. MCV (mean corpuscular volume ) determinationOrdered By: Ender Oates on 05-11-2024 MCV (RBC) [Entitic vol] 102.6 fL High 81-99 [facility] Mean corpuscular hemoglobin (MCH) determinationOrdered By: Ender Oates on 05-11-2024 MCH (RBC) [Entitic mass] 31.8 pg 27.0-32.0 [facility] Mean corpuscular hemoglobin concentration (MCHC) determinationOrdered By: Ender Oates on 05-11-2024 MCHC (RBC) [Mass/Vol] 30.9 g/dL Low 32-36 [facility] Mean platelet volume determi nationOrdered By: Ender Oates on 05-11-2024 Platelet mean volume (Bld) [Entitic vol] 10.0 fL 6.2-12.0 [facility] Platelet countOrdered By: Donnie Oates on 05-11-2024 Platelets (Bld) [#/Vol] 174 10*3/uL 150-450 [facility] Potassium measurementOrdered By: Ender Oates on 05-11-2024 Potassium [Moles/Vol] 4.6 mmol/L 3.5-5.1 [facility] Comment on above: Moderate Hemolysis, Result may be falsely increased. RBC Auto (Bld) [#/Vol]Ordere d By: Ender Oates on 05-11-2024 RBC (Bld) [#/Vol] 4.22 10*6/uL 4.2-5.[address] [facility] Serum anion gap measurementO rdered By: Ender Oates on 05-11-2024 Anion gap [Moles/Vol] 2 mmol/L Low 5-15 [facility] Serum globulin measurementOr dered By: Ender Oates on 05-11-2024 Globulin (S) [Mass/Vol] 3.7 g/dL 2.2-4.2 [facility] Serum or plasma alanine leung otransferase (ALT) measurementOrdered By: Ender Oates on 05-11-2024 ALT [Catalytic activity/Vol] 20 U/L 13-56 [facility] Serum or plasma albumin tammie urement (mass/volume)Ordered By: Ender Oates on 05-11-2024 Albumin [Mass/Vol] 2.8 g/dL Low 3.2-5.0 [facility] Serum or plasma alkaline rosey sphatase measurementOrdered By: Ender Oates on 05-11-2024 ALP [Catalytic activity/Vol] 84 U/L 45-117 [facility] Serum or plasma calcium tammie urement (mass/volume)Ordered By: Ender Oates on 05-11-2024 Calcium [Mass/Vol] 8.9 mg/dL 8.5-10.1 [facility] Serum or plasma creatinine m easurement (mass/volume)Ordered By: Ender Oates on 05-11-2024 Creatinine [Mass/Vol] 0.78 mg/dL 0.55-1.02 [facility] Comment on above: The validity of the calculated GFR & GFRAA in patients over 70 years has not been determined. Clinical correlation is essential. Serum or plasma urea nitroge n measurement (mass/volume)Ordered By: Ender Oates on 05-11-2024 Urea nitrogen [Mass/Vol] 25 mg/dL High 7-18 [facility] Sodium levelOrdered By: Jimbo Oates on 05-11-2024 Sodium [Moles/Vol] 139 mmol/L 136-145 [facility] Total proteinOrdered By: Ronaldo Oates on 05-11-2024 Protein [Mass/Vol] 6.5 g/dL 6.4-8.2 [facility] White blood cell (WBC) count Ordered By: Ender Oates on 05-11-2024 WBC (Bld) [#/Vol] 6.0 10*3/uL 4.4-11.0 [facility] CNPNon 04-12-2024 BENJAMINN Telephone (FPWADS) CHARLIE NGUYEN ([id number]) 1955 F CHT Date Time Provider Department 04/12/24 MORENO OATES During your visit today, we recorded the following information about you: Fadumo Rahman LPN 04/12/2024 10:33 AM Signed Received from [facility]. Placed in provider's inbox for review. Route to [place] for scanning. Allergies As of Date: 04/12/2024 [...] Reason for Visit: Received Outside Medical Records [6502] Cmt: [facility] 04/11/2024 Order(s):CBC [[id number]] Order #: [id number] CMP (EXTERNAL) [[id number]] Order #: [id number] Prescriptions as of 04/12/2024 - oxyCODONE-acetaminoph en [...] encounter *04/20/201704/02 (more content not included)... Normal [facility] CBCon 04-11-2024 Erythrocyte distribution width (RBC) [Ratio] 15.9 % Abnormal 11.7 - 15.0 % [facility] Hematocrit (Bld) [Volume fraction] 47.1 % Abnormal 33 - 42 % [facility] Hemoglobin (Bld) [Mass/Vol] 15.2 g/dL 14 - 16.5 g/dL [facility] MCH (RBC) [Entitic mass] 32.1 pG 27 - 34 pG [facility] MCHC 32.3 % 32 - 36 % [facility] MCV (RBC) [Entitic vol] 99.4 fL 80 - 100 fL [facility] Platelet mean volume (Bld) [Entitic vol] 10.3 fL 7.4 - 10.4 fL [facility] Platelets (Bld) [#/Vol] 191 10*3/uL [facility] RBC (Bld) [#/Vol] 4.74 10*6/uL [facility] RDW-SD 58.9 [facility] WBC (Bld) [#/Vol] 7.2 10*3/uL [facility] CMP (EXTERNAL)on 04-11-2024 Albumin [Mass/Vol] 3.1 g/dL Abnormal [facility] Alk Phos Total 81 U/L 45 - 117 U/L [facility] ALT [Catalytic activity/Vol] 19 U/L 12 - 78 U/L [facility] AST [Catalytic activity/Vol] 22 U/L 8 - 37 U/L [facility] Bili Total 0.50 mg/dL 0.2 - 1 mg/dL [facility] Calcium [Mass/Vol] 8.4 mg/dL Abnormal 8.5 - 10. 1 mg/dL [facility] Chloride [Moles/Vol] 109 mmol/L Abnormal [facility] CO2 [Moles/Vol] 24 mmol/L [facility] Creatinine [Mass/Vol] 0.83 mg/dL [facility] GFR 73 mL/MIN [facility] GFR AFR AMER 88 mL/MIN [facility] Glucose [Mass/Vol] 112 mg/dL Abnormal [facility] Potassium [Moles/Vol] 4.2 mmol/L 3.5 - 5.1 mmol/L [facility] Protein [Mass/Vol] 7.4 g/dL [facility] Sodium [Moles/Vol] 139 mmol/L 136 - 145 mmol/L [facility] Urea nitrogen [Mass/Vol] 22 mg/dL Abnormal [facility] No Panel Informationon 04-11 Interpretation and review of laboratory results Abnormal [facility] CNPMuna 03-17-2024 CARSON Telephone (FPUTDS) CHARLIE NGUYEN ([id number]) 1955 F T Date Time Provider Department 03/17/24 MORENO OATES During your visit today, we recorded the following information about you: Roderick Gaviria LPN 03/17/2024 8:43 AM Signed Received orders from [employer]. Placed in provider's inbox for review. Route [...] S/P revision (more content not included)... Normal [facility] Keshia 03-10-2024 BENJAMIN Telephone (MILY) CHARLIE NGUYEN ([id number]) 1955 F [facility] Date Time Provider Department 03/10/24 MORENO OATES During your visit today, we recorded the following information about you: Cynthia GaviriabobritikaDAVON 03/10/2024 5:23 PM Signed Received outside lab results from [facility]. Placed in provider's inbox for review. Route [...] for Visit: Outside Labs Results [[id number]] Cmt: [facility] Prescriptions as of 03/10/2024 - oxyCODONE-acetaminoph en [...] 07/08/2017 S/P (more content not included)... Normal [facility] CBCon 11-09-2023 Erythrocyte distribution width (RBC) [Ratio] 14.4 % 11.7 - 15.0 % [facility] Hematocrit (Bld) [Volume fraction] 49.8 % Abnormal 35 - 47 % [facility] Hemoglobin (Bld) [Mass/Vol] 15.4 g/dL [facility] MCH (RBC) [Entitic mass] 32.3 pG 27 - 34 pG [facility] MCHC (RBC) [Mass/Vol] 30.9 g/dL Abnormal 33 - 37 g/dL [facility] MCV (RBC) [Entitic vol] 104.4 fL Abnormal 80 - 100 fL [facility] Platelet mean volume (Bld) [Entitic vol] 10.4 fL 7.4 - 10.4 fL [facility] Platelets (Bld) [#/Vol] 222 10*3/uL [facility] RBC (Bld) [#/Vol] 4.77 10*6/uL [facility] RDW-SD 55.9 [facility] WBC (Bld) [#/Vol] 6.9 10*3/uL [facility] CMP (EXTERNAL)Ordered By: Angeline Rahman on 11-09-2023 Albumin [Mass/Vol] 3.3 g/dL [facility] Alk Phos Total 102 U/L 45 - 117 U/L [facility] ALT [Catalytic activity/Vol] 19 U/L 12 - 78 U/L [facility] AST [Catalytic activity/Vol] 24 U/L 8 - 37 U/L [facility] Bili Total 0.50 mg/dL 0.2 - 1 mg/dL [facility] Calcium [Mass/Vol] 9 mg/dL 8.5 - 10. 1 mg/dL [facility] Chloride [Moles/Vol] 106 mmol/L [facility] CO2 [Moles/Vol] 27 mmol/L [facility] Creatinine [Mass/Vol] 0.87 mg/dL [facility] GFR 69 mL/MIN [facility] GFR AFR AMER 83 mL/MIN [facility] Glucose [Mass/Vol] 119 mg/dL Abnormal [facility] Potassium [Moles/Vol] 4.4 mmol/L 3.5 - 5.1 mmol/L [facility] Protein [Mass/Vol] 7.8 g/dL [facility] Urea nitrogen [Mass/Vol] 19 mg/dL Abnormal [facility] No Panel InformationOrdered By: Fadumo Rahman on 11-09-2023 Interpretation and review of laboratory results Abnormal [facility] Basophil percentageOrdered B y: Ender Oates on 08-10-2023 Bilirubin [Mass/Vol] 0.40 mg/dL 0.20-1.00 [facility] Comment on above: For patients on eltr ombopag therapy, use of Dimension [place] TBIL is not recommended. Chloride [Moles/Vol] 104 mmol/L 98-107 [facility] Cholesterol [Mass/Vol] 174 mg/dL <200 [facility] Comment on above: <200 mg/dL Desirable 200-240 mg/dL Borderline >240 mg/dL High Risk Glucose [Mass/Vol] 102 mg/dL 74-106 [facility] Comment on above: Fasting Glucose resu lt from 100 to 125 mg/dL suggests IMPAIRED HOMEOSTASIS per A.D.A. criteria. Hemoglobin (Bld) [Mass/Vol] 14.9 g/dL 12.0-15.0 [facility] Potassium [Moles/Vol] 4.2 mmol/L 3.5-5.1 [facility] Protein [Mass/Vol] 7.5 g/dL 6.4-8.2 [facility] Sodium [Moles/Vol] 139 mmol/L 136-145 [facility] Triglyceride [Mass/Vol] 265 mg/dL <199 [facility] Comment on above: The drugs N-Acetylcy steine and Metamizole may falsely depress this assay.Serum Triglycerides Reference Interval Normal <150 mg/dL Borderline high 150 - 199 mg/dL High 200 - 499 mg/dL Very High > or = 500 mg/dL WBC (Bld) [#/Vol] 7.7 10*3/uL 4.4-11.0 [facility] Determination of erythrocyte mean corpuscular volume (MCV)Ordered By: Ender Oates on 08-10-2023 MCV (RBC) [Entitic vol] 100.2 fL 81-99 [facility] Erythrocyte distribution wid th ratioOrdered By: Ender Oates on 08-10-2023 Erythrocyte distribution width (RBC) [Ratio] 14.6 % 11.6-14.6 [facility] Erythrocyte distribution wid th standard deviationOrdered By: Ender Oates on 08-10-2023 Erythrocyte distribution width (RBC) [Entitic vol] 54.9 fL 35.1-43.9 [facility] Hematocrit Auto (Bld) [Volum e fraction]Ordered By: Ender Oates on 08-10-2023 Hematocrit (Bld) [Volume fraction] 46.5 % 37-47 [facility] - Chemistry and C hemistry - challengeOrdered By: Ender Oates on 08-10-2023 Albumin/Globulin [Mass ratio] 0.7 {ratio} 0.9-2.4 [facility] ALP [Catalytic activity/Vol] 93 U/L 45-117 [facility] ALT [Catalytic activity/Vol] 18 U/L 13-56 [facility] Cholesterol in HDL [Mass/Vol] 59 mg/dL >40 [facility] Comment on above: The drugs N-Acetylcy steine and Metamizole may falsely depress this assay. Reference Range HDL <40 mg/dL Low HDL Cholesterol HDL >or= 60 mg/dL High HDL Cholesterol Cholesterol in LDL [Mass/Vol] 62 mg/dL 0-130 [facility] CO2 [Moles/Vol] 28.0 mmol/L 21.0-32.0 [facility] Globulin (S) [Mass/Vol] 4.3 g/dL 2.2-4.2 [facility] Urea nitrogen/Creatinine [Mass ratio] 26.5 mg/mg 10-20 [facility] - Hematology and Cell countsOrdered By: Ender Oates on 08-10-2023 MCH (RBC) [Entitic mass] 32.1 pg 27.0-32.0 [facility] MCHC (RBC) [Mass/Vol] 32.0 g/dL 32-36 [facility] Platelet mean volume (Bld) [Entitic vol] 10.2 fL 6.2-12.0 [facility] Platelets (Bld) [#/Vol] 237 10*3/uL 150-450 [facility] No Panel InformationOrdered By: Ender Oates on 08-10-2023 Estimated GFR (MDRD) Amer 62 mL/min >60 [facility] Comment on above: GFR Calc Estimated GFR (MDRD) Non-Af Amer 51 mL/min >60 [facility] Comment on above: Non- GFR Calc VLDL Cholesterol 53 mg/dL 5-40 [facility] RBC Auto (Bld) [#/Vol]Ordere d By: Ender Oates on 08-10-2023 RBC (Bld) [#/Vol] 4.64 10*6/uL 4.2-5.4 [facility] Serum or plasma calcium tammie urement (mass/volume)Ordered By: Ender Oates on 08-10-2023 Calcium [Mass/Vol] 9.6 mg/dL 8.5-10.1 [facility] Serum or plasma creatinine m easurement (mass/volume)Ordered By: Ender Oates on 08-10-2023 Creatinine [Mass/Vol] 1.13 mg/dL 0.55-1.02 [facility] Comment on above: The validity of the calculated GFR & GFRAA in patients over 70 years has not been determined. Clinical correlation is essential. Serum or plasma urea nitroge n measurement (mass/volume)Ordered By: Ender Oates on 08-10-2023 Urea nitrogen [Mass/Vol] 30 mg/dL 7-18 [facility] Thin prep Papanicolaou smear with manual screeningOrdered By: Ender Oates on 08-10-2023 Thin prep Papanicolaou smear with manual screening 3.2 g/dL 3.2-5.0 [facility] Thin prep Papanicolaou smear with manual screening 15 U/L 15-37 [facility] Thin prep Papanicolaou smear with manual screening 7 5-15 [facility] Basophil percentageOrdered B y: Ender Oates on 07-13-2023 Bilirubin [Mass/Vol] 0.70 mg/dL 0.20-1.00 [facility] Comment on above: For patients on eltr ombopag therapy, use of Dimension [place] TBIL is not recommended. Chloride [Moles/Vol] 108 mmol/L 98-107 [facility] Glucose [Mass/Vol] 91 mg/dL 74-106 [facility] Hemoglobin (Bld) [Mass/Vol] 14.8 g/dL 12.0-15.0 [facility] Potassium [Moles/Vol] 4.7 mmol/L 3.5-5.1 [facility] Protein [Mass/Vol] 7.6 g/dL 6.4-8.2 [facility] Sodium [Moles/Vol] 141 mmol/L 136-145 [facility] WBC (Bld) [#/Vol] 5.6 10*3/uL 4.4-11.0 [facility] Determination of erythrocyte mean corpuscular volume (MCV)Ordered By: Ender Oates on 07-13-2023 MCV (RBC) [Entitic vol] 100.9 fL 81-99 [facility] Erythrocyte distribution wid th ratioOrdered By: Ender Oates on 07-13-2023 Erythrocyte distribution width (RBC) [Ratio] 15.4 % 11.6-14.6 [facility] Erythrocyte distribution wid th standard deviationOrdered By: Ender Oates on 07-13-2023 Erythrocyte distribution width (RBC) [Entitic vol] 57.7 fL 35.1-43.9 [facility] Hematocrit Auto (Bld) [Volum e fraction]Ordered By: Ender Oates on 07-13-2023 Hematocrit (Bld) [Volume fraction] 47.1 % 37-47 [facility] - Chemistry and C hemistry - challengeOrdered By: Ender Oates on 07-13-2023 Albumin/Globulin [Mass ratio] 0.8 {ratio} 0.9-2.4 [facility] ALP [Catalytic activity/Vol] 84 U/L 45-117 [facility] ALT [Catalytic activity/Vol] 21 U/L 13-56 [facility] CO2 [Moles/Vol] 27.0 mmol/L 21.0-32.0 [facility] Globulin (S) [Mass/Vol] 4.3 g/dL 2.2-4.2 [facility] Urea nitrogen/Creatinine [Mass ratio] 29.3 mg/mg 10-20 [facility] - Hematology and Cell countsOrdered By: Ender Oates on 07-13-2023 MCH (RBC) [Entitic mass] 31.7 pg 27.0-32.0 [facility] MCHC (RBC) [Mass/Vol] 31.4 g/dL 32-36 [facility] Platelet mean volume (Bld) [Entitic vol] 10.6 fL 6.2-12.0 [facility] Platelets (Bld) [#/Vol] 200 10*3/uL 150-450 [facility] No Panel InformationOrdered By: Ender Oates on 07-13-2023 Estimated GFR (MDRD) Amer 94 mL/min >60 [facility] Comment on above: GFR Calc Estimated GFR (MDRD) Non-Af Amer 78 mL/min >60 [facility] Comment on above: Non- GFR Calc RBC Auto (Bld) [#/Vol]Ordere d By: Ender Oates on 07-13-2023 RBC (Bld) [#/Vol] 4.67 10*6/uL 4.2-5.[address] [facility] Serum or plasma calcium tammie urement (mass/volume)Ordered By: Ender Oates on 07-13-2023 Calcium [Mass/Vol] 9.2 mg/dL 8.5-10.1 [facility] Serum or plasma creatinine m easurement (mass/volume)Ordered By: Ender Oates on 07-13-2023 Creatinine [Mass/Vol] 0.78 mg/dL 0.55-1.02 [facility] Comment on above: The validity of the calculated GFR & GFRAA in patients over 70 years has not been determined. Clinical correlation is essential. Serum or plasma urea nitroge n measurement (mass/volume)Ordered By: Ender Oates on 07-13-2023 Urea nitrogen [Mass/Vol] 23 mg/dL 7-18 [facility] Thin prep Papanicolaou smear with manual screeningOrdered By: Ender Oates on 07-13-2023 Thin prep Papanicolaou smear with manual screening 3.3 g/dL 3.2-5.0 [facility] Thin prep Papanicolaou smear with manual screening 18 U/L 15-37 [facility] Thin prep Papanicolaou smear with manual screening 6 5-15 [facility] Basophil percentageOrdered B y: Ender Oates on 06-08-2023 Bilirubin [Mass/Vol] 0.40 mg/dL 0.20-1.00 [facility] Comment on above: For patients on eltr ombopag therapy, use of Dimension [place] TBIL is not recommended. Chloride [Moles/Vol] 105 mmol/L 98-107 [facility] Glucose [Mass/Vol] 90 mg/dL 74-106 [facility] Potassium [Moles/Vol] 4.8 mmol/L 3.5-5.1 [facility] Protein [Mass/Vol] 7.3 g/dL 6.4-8.2 [facility] Sodium [Moles/Vol] 138 mmol/L 136-145 [facility] WBC (Bld) [#/Vol] 6.9 10*3/uL 4.4-11.0 [facility] Blood erythrocytes count (nu mber/volume)Ordered By: Ender Oates on 06-08-2023 RBC (Bld) [#/Vol] 4.60 10*6/uL 4.2-5.[address] [facility] Blood hemoglobin measurement (mass/volume)Ordered By: Ender Oates on 06-08-2023 Hemoglobin (Bld) [Mass/Vol] 14.4 g/dL 12.0-15.0 [facility] Blood platelet mean volumeOr dered By: Ender Oates on 06-08-2023 Platelet mean volume (Bld) [Entitic vol] 10.9 fL 6.2-12.0 [facility] Determination of erythrocyte mean corpuscular volume (MCV)Ordered By: Ender Oates on 06-08-2023 MCV (RBC) [Entitic vol] 103.0 fL 81-99 [facility] Hematocrit Auto (Bld) [Volum e fraction]Ordered By: Ender Oates on 06-08-2023 Hematocrit (Bld) [Volume fraction] 47.4 % 37-47 [facility] - Chemistry and C hemistry - challengeOrdered By: Ender Oates on 06-08-2023 ALP [Catalytic activity/Vol] 90 U/L 45-117 [facility] ALT [Catalytic activity/Vol] 17 U/L 13-56 [facility] CO2 [Moles/Vol] 30.0 mmol/L 21.0-32.0 [facility] Globulin (S) [Mass/Vol] 4.2 g/dL 2.2-4.2 [facility] Urea nitrogen/Creatinine [Mass ratio] 30.5 mg/mg 10-20 [facility] - Hematology and Cell countsOrdered By: Ender Oates on 06-08-2023 Erythrocyte distribution width (RBC) [Entitic vol] 58.5 fL 35.1-43.9 [facility] Erythrocyte distribution width (RBC) [Ratio] 15.4 % 11.6-14.6 [facility] MCH (RBC) [Entitic mass] 31.3 pg 27.0-32.0 [facility] MCHC Auto (RBC) [Mass/Vol]Or dered By: Ender Oates on 06-08-2023 MCHC (RBC) [Mass/Vol] 30.4 g/dL 32-36 [facility] No Panel InformationOrdered By: Ender Oates on 06-08-2023 Estimated GFR (MDRD) Amer 67 mL/min >60 [facility] Comment on above: GFR Calc Estimated GFR (MDRD) Non-Af Amer 56 mL/min >60 [facility] Comment on above: Non- GFR Calc Platelets bldOrdered By: Ronaldo Oates on 06-08-2023 Platelets (Bld) [#/Vol] 216 10*3/uL 150-450 [facility] Serum or plasma albumin tammie urement (mass/volume)Ordered By: Ender Oates on 06-08-2023 Albumin [Mass/Vol] 3.1 g/dL 3.2-5.0 [facility] Serum or plasma albumin/glob ulin mass ratioOrdered By: Ender Oates on 06-08-2023 Albumin/Globulin [Mass ratio] 0.7 {ratio} 0.9-2.4 [facility] Serum or plasma calcium tammie urement (mass/volume)Ordered By: Ender Oates on 06-08-2023 Calcium [Mass/Vol] 9.1 mg/dL 8.5-10.1 [facility] Serum or plasma creatinine m easurement (mass/volume)Ordered By: Ender Oates on 06-08-2023 Creatinine [Mass/Vol] 1.05 mg/dL 0.55-1.02 [facility] Comment on above: The validity of the calculated GFR & GFRAA in patients over 70 years has not been determined. Clinical correlation is essential. Serum or plasma urea nitroge n measurement (mass/volume)Ordered By: Ender Oates on 06-08-2023 Urea nitrogen [Mass/Vol] 32 mg/dL 7-18 [facility] Thin prep Papanicolaou smear with manual screeningOrdered By: Ender Oates on 06-08-2023 Thin prep Papanicolaou smear with manual screening 16 U/L 15-37 [facility] Thin prep Papanicolaou smear with manual screening 3 5-15 [facility] Automated blood hematocrit ( percentage)Ordered By: Ender Oates on 05-11-2023 Hematocrit (Bld) [Volume fraction] 41.8 % 37-47 [facility] Basophil percentageOrdered B y: Ender Oates on 05-11-2023 Bilirubin [Mass/Vol] 0.30 mg/dL 0.20-1.00 [facility] Comment on above: For patients on eltr ombopag therapy, use of Dimension [place] TBIL is not recommended. Chloride [Moles/Vol] 106 mmol/L 98-107 [facility] Glucose [Mass/Vol] 102 mg/dL 74-106 [facility] Comment on above: Fasting Glucose resu lt from 100 to 125 mg/dL suggests IMPAIRED HOMEOSTASIS per A.D.A. criteria. Potassium [Moles/Vol] 3.7 mmol/L 3.5-5.1 [facility] Protein [Mass/Vol] 6.4 g/dL 6.4-8.2 [facility] Sodium [Moles/Vol] 142 mmol/L 136-145 [facility] WBC (Bld) [#/Vol] 7.2 10*3/uL 4.4-11.0 [facility] Blood erythrocytes count (nu mber/volume)Ordered By: Ender Oates on 05-11-2023 RBC (Bld) [#/Vol] 4.15 10*6/uL 4.2-5.[address] [facility] Blood hemoglobin measurement (mass/volume)Ordered By: Ender Oates on 05-11-2023 Hemoglobin (Bld) [Mass/Vol] 12.8 g/dL 12.0-15.0 [facility] Blood platelet mean volumeOr dered By: Ender Oates on 05-11-2023 Platelet mean volume (Bld) [Entitic vol] 10.8 fL 6.2-12.0 [facility] CBCon 05-11-2023 Erythrocyte distribution width (RBC) [Ratio] 14.7 % 11.7 - 15.0 % [facility] MCHC (RBC) [Mass/Vol] 31.5 g/dL 31.5 - 35.7 g/dL [facility] Platelet mean volume (Bld) [Entitic vol] 10.8 % 7.3 - 11.1 % [facility] Platelets (Bld) [#/Vol] 217 10*3/uL 140 - 440 K/uL [facility] RDW-SD 57.2 [facility] CMP (EXTERNAL)on 05-11-2023 Alk Phos Total 85 U/L 45 - 117 U/L [facility] Anion gap [Moles/Vol] 5 mmol/L [facility] AST [Catalytic activity/Vol] 19 U/L 8 - 37 U/L [facility] Bili Total 0.30 mg/dL 0.2 - 1 mg/dL [facility] CO2 [Moles/Vol] 31 mmol/L 21 - 32 MEQ/L [facility] GFR AFR AMER 83 mL/MIN [facility] GFR/1.73 sq M.predicted among non-blacks MDRD (S/P/Bld) [Vol rate/Area] 69 mL/min/{1.73_m2} [facility] Determination of erythrocyte mean corpuscular volume (MCV)Ordered By: Ender Oates on 05-11-2023 MCV (RBC) [Entitic vol] 100.7 fL 81-99 [facility] Laboratory - Chemistry and C hemistry - challengeOrdered By: Ender Oates on 05-11-2023 ALP [Catalytic activity/Vol] 85 U/L 45-117 [facility] ALT [Catalytic activity/Vol] 19 U/L 13-56 [facility] CO2 [Moles/Vol] 31.0 mmol/L 21.0-32.0 [facility] Globulin (S) [Mass/Vol] 3.7 g/dL 2.2-4.2 [facility] Urea nitrogen/Creatinine [Mass ratio] 30.9 mg/mg 10-20 [facility] Laboratory - Hematology and Cell countsOrdered By: Ender Oates on 05-11-2023 Erythrocyte distribution width (RBC) [Entitic vol] 57.2 fL 35.1-43.9 [facility] Erythrocyte distribution width (RBC) [Ratio] 15.3 % 11.6-14.6 [facility] MCH (RBC) [Entitic mass] 30.8 pG 27.0-32.0 [facility] MCHC Auto (RBC) [Mass/Vol]Or dered By: Ender Oates on 12-11-2023 MCHC (RBC) [Mass/Vol] 30.6 g/dL 32-36 [facility] No Panel InformationOrdered By: Ender Oates on 05-11-2023 Estimated GFR (MDRD) Amer 83 mL/min >60 [facility] Comment on above: GFR Calc Estimated GFR (MDRD) Non-Af Amer 69 mL/min >60 [facility] Comment on above: Non- GFR Calc Platelets bldOrdered By: Ronaldo Oates on 05-11-2023 Platelets (Bld) [#/Vol] 196 10*3/uL 150-450 [facility] Serum or plasma albumin tammie urement (mass/volume)Ordered By: Ender Oates on 05-11-2023 Albumin [Mass/Vol] 2.7 g/dL 3.2-5.0 [facility] Serum or plasma albumin/glob ulin mass ratioOrdered By: Ender Oates on 05-11-2023 Albumin/Globulin [Mass ratio] 0.7 {ratio} 0.9-2.4 [facility] Serum or plasma calcium tammie urement (mass/volume)Ordered By: Ender Oates on 05-11-2023 Calcium [Mass/Vol] 8.9 mg/dL 8.5-10.1 [facility] Serum or plasma creatinine m easurement (mass/volume)Ordered By: Ender Oates on 05-11-2023 Creatinine [Mass/Vol] 0.88 mg/dL 0.55-1.02 [facility] Comment on above: The validity of the calculated GFR & GFRAA in patients over 70 years has not been determined. Clinical correlation is essential. Serum or plasma urea nitroge n measurement (mass/volume)Ordered By: Ender Oates on 05-11-2023 Urea nitrogen [Mass/Vol] 27 mg/dL 7-18 [facility] Thin prep Papanicolaou smear with manual screeningOrdered By: Ender Oates on 05-11-2023 Thin prep Papanicolaou smear with manual screening 19 U/L 15-37 [facility] Thin prep Papanicolaou smear with manual screening 5 5-15 [facility] BMP - EXTERNALon 04-13-2023 Alk Phos 78 U/L 50 - 136 U/L [facility] Anion gap [Moles/Vol] 5 mmol/L [facility] AST [Catalytic activity/Vol] 25 U/L 39 U/L [facility] Bilirubin, Total. 0.40 [facility] GFR AFR AMER 83 mL/MIN [facility] GFR/1.73 sq M.predicted among non-blacks MDRD (S/P/Bld) [Vol rate/Area] 69 mL/min/{1.73_m2} [facility] Globulin 4.2 [facility] HCO3 (Bld) [Moles/Vol] 26 mmol/L Cl [facility] Basophil percentageOrdered B y: Ender Oates on 04-13-2023 Bilirubin [Mass/Vol] 0.40 mg/dL 0.20-1.00 [facility] Comment on above: For patients on eltr ombopag therapy, use of Dimension [place] TBIL is not recommended. Chloride [Moles/Vol] 108 mmol/L 98-107 [facility] Glucose [Mass/Vol] 98 mg/dL 74-106 [facility] Potassium [Moles/Vol] 4.5 mmol/L 3.5-5.1 [facility] Comment on above: Slight Hemolysis, Re sult may be falsely increased. Protein [Mass/Vol] 7.3 g/dL 6.4-8.2 [facility] Sodium [Moles/Vol] 139 mmol/L 136-145 [facility] WBC (Bld) [#/Vol] 6.2 10*3/uL 4.4-11.0 [facility] Blood erythrocytes count (nu mber/volume)Ordered By: Ender Oates on 04-13-2023 RBC (Bld) [#/Vol] 4.24 10*6/uL 4.2-5.[address] [facility] Blood hemoglobin measurement (mass/volume)Ordered By: Ender Oates on 04-13-2023 Hemoglobin (Bld) [Mass/Vol] 13.6 g/dL 12.0-15.0 [facility] Blood platelet mean volumeOr dered By: Ender Oates on 04-13-2023 Platelet mean volume (Bld) [Entitic vol] 10.8 fL 6.2-12.0 [facility] Determination of erythrocyte mean corpuscular volume (MCV)Ordered By: Ender Oates on 04-13-2023 MCV (RBC) [Entitic vol] 101.9 fL 81-99 [facility] Hematocrit Auto (Bld) [Volum e fraction]Ordered By: Ender Oates on 04-13-2023 Hematocrit (Bld) [Volume fraction] 43.2 % 37-47 [facility] Laboratory - Chemistry and C hemistry - challengeOrdered By: Ender Oates on 04-13-2023 ALP [Catalytic activity/Vol] 78 U/L 45-117 [facility] ALT [Catalytic activity/Vol] 20 U/L 13-56 [facility] CO2 [Moles/Vol] 26.0 mmol/L 21.0-32.0 [facility] Globulin (S) [Mass/Vol] 4.2 g/dL 2.2-4.2 [facility] Urea nitrogen/Creatinine [Mass ratio] 26.3 mg/mg 10-20 [facility] Laboratory - Hematology and Cell countsOrdered By: Ender Oates on 04-13-2023 Erythrocyte distribution width (RBC) [Entitic vol] 55.5 fL 35.1-43.9 [facility] Erythrocyte distribution width (RBC) [Ratio] 14.7 % 11.6-14.6 [facility] MCH (RBC) [Entitic mass] 32.1 pg 27.0-32.0 [facility] MCHC Auto (RBC) [Mass/Vol]Or dered By: Ender Oates on 04-13-2023 MCHC (RBC) [Mass/Vol] 31.5 g/dL 32-36 [facility] No Panel InformationOrdered By: Ender Oates on 04-13-2023 Estimated GFR (MDRD) Amer 83 mL/min >60 [facility] Comment on above: GFR Calc Estimated GFR (MDRD) Non-Af Amer 69 mL/min >60 [facility] Comment on above: Non- GFR Calc Platelets bldOrdered By: Ronaldo Oates on 04-13-2023 Platelets (Bld) [#/Vol] 217 10*3/uL 150-450 [facility] Serum or plasma albumin tammie urement (mass/volume)Ordered By: Ender Oates on 04-13-2023 Albumin [Mass/Vol] 3.1 g/dL 3.2-5.0 [facility] Serum or plasma albumin/glob ulin mass ratioOrdered By: Ender Oates on 04-13-2023 Albumin/Globulin [Mass ratio] 0.7 {ratio} 0.9-2.4 [facility] Serum or plasma calcium tammie urement (mass/volume)Ordered By: Ender Oates on 04-13-2023 Calcium [Mass/Vol] 8.7 mg/dL 8.5-10.1 [facility] Serum or plasma creatinine m easurement (mass/volume)Ordered By: Ender Oates on 04-13-2023 Creatinine [Mass/Vol] 0.88 mg/dL 0.55-1.02 [facility] Comment on above: The validity of the calculated GFR & GFRAA in patients over 70 years has not been determined. Clinical correlation is essential. Serum or plasma urea nitroge n measurement (mass/volume)Ordered By: Ender Oates on 04-13-2023 Urea nitrogen [Mass/Vol] 23 mg/dL 7-18 [facility] Thin prep Papanicolaou smear with manual screeningOrdered By: Ender Oates on 04-13-2023 Thin prep Papanicolaou smear with manual screening 25 U/L 15-37 [facility] Comment on above: Slight Hemolysis, Re sult may be falsely increased. Thin prep Papanicolaou smear with manual screening 5 5-15 [facility] CBC panel Auto (Bld)on 04-06 Erythrocyte distribution width (RBC) [Ratio] 13.9 % 11.7 - 15.0 % [facility] Hematocrit (Bld) [Volume fraction] 43.2 % 35 - 47 % [facility] Hemoglobin (Bld) [Mass/Vol] 13.6 g/dL [facility] MCH (RBC) [Entitic mass] 32.1 pG 27 - 34 pG [facility] MCHC (RBC) [Mass/Vol] 30.6 g/dL Abnormal 31.5 - 35.7 g/dL [facility] Platelet mean volume (Bld) [Entitic vol] 10.8 % Abnormal 7.3 - 11.1 % [facility] Platelets (Bld) [#/Vol] 21.7 10*3/uL Abnormal 150 - 400 k/uL [facility] RBC (Bld) [#/Vol] 4.26 10*6/uL [facility] RDW-SD 54.2 [facility] WBC (Bld) [#/Vol] 6.2 10*3/uL [facility] Basophil percentageOrdered B y: Ender Oates on 03-09-2023 Bilirubin [Mass/Vol] 0.60 mg/dL 0.20-1.00 [facility] Comment on above: For patients on eltr ombopag therapy, use of Dimension [place] TBIL is not recommended. Chloride [Moles/Vol] 106 mmol/L 98-107 [facility] Glucose [Mass/Vol] 105 mg/dL 74-106 [facility] Comment on above: Fasting Glucose resu lt from 100 to 125 mg/dL suggests IMPAIRED HOMEOSTASIS per A.D.A. criteria. Potassium [Moles/Vol] 5.0 mmol/L 3.5-5.1 [facility] Protein [Mass/Vol] 7.1 g/dL 6.4-8.2 [facility] Sodium [Moles/Vol] 139 mmol/L 136-145 [facility] WBC (Bld) [#/Vol] 6.2 10*3/uL 4.4-11.0 [facility] Blood erythrocytes count (nu mber/volume)Ordered By: Ender Oates on 03-09-2023 RBC (Bld) [#/Vol] 4.31 10*6/uL 4.2-5.[address] [facility] Blood hemoglobin measurement (mass/volume)Ordered By: Ender Oates on 03-09-2023 Hemoglobin (Bld) [Mass/Vol] 13.7 g/dL 12.0-15.0 [facility] Blood platelet mean volumeOr dered By: Ender Oates on 03-09-2023 Platelet mean volume (Bld) [Entitic vol] 11.4 fL 6.2-12.0 [facility] Determination of erythrocyte mean corpuscular volume (MCV)Ordered By: Ender Oates on 03-09-2023 MCV (RBC) [Entitic vol] 103.7 fL 81-99 [facility] Hematocrit Auto (Bld) [Volum e fraction]Ordered By: Ender Oates on 03-09-2023 Hematocrit (Bld) [Volume fraction] 44.7 % 37-47 [facility] Laboratory - Chemistry and C hemistry - challengeOrdered By: Ender Oates on 03-09-2023 ALP [Catalytic activity/Vol] 94 U/L 45-117 [facility] ALT [Catalytic activity/Vol] 16 U/L 13-56 [facility] CO2 [Moles/Vol] 28.0 mmol/L 21.0-32.0 [facility] Globulin (S) [Mass/Vol] 4.0 g/dL 2.2-4.2 [facility] Urea nitrogen/Creatinine [Mass ratio] 31.3 mg/mg 10-20 [facility] - Hematology and Cell countsOrdered By: Ender Oates on 03-09-2023 Erythrocyte distribution width (RBC) [Entitic vol] 54.2 fL 35.1-43.9 [facility] Erythrocyte distribution width (RBC) [Ratio] 13.9 % 11.6-14.6 [facility] MCH (RBC) [Entitic mass] 31.8 pg 27.0-32.0 [facility] MCHC Auto (RBC) [Mass/Vol]Or dered By: Ender Oates on 03-09-2023 MCHC (RBC) [Mass/Vol] 30.6 g/dL 32-36 [facility] No Panel InformationOrdered By: Ender Oates on 03-09-2023 Estimated GFR (MDRD) Amer 75 mL/min >60 [facility] Comment on above: GFR Calc Estimated GFR (MDRD) Non-Af Amer 62 mL/min >60 [facility] Comment on above: Non- GFR Calc Platelets bldOrdered By: Ronaldo Oates on 03-09-2023 Platelets (Bld) [#/Vol] 216 10*3/uL 150-450 [facility] Serum or plasma albumin tammie urement (mass/volume)Ordered By: Ender Oates on 03-09-2023 Albumin [Mass/Vol] 3.1 g/dL 3.2-5.0 [facility] Serum or plasma albumin/glob ulin mass ratioOrdered By: Ender Oates on 03-09-2023 Albumin/Globulin [Mass ratio] 0.8 {ratio} 0.9-2.4 [facility] Serum or plasma calcium tammie urement (mass/volume)Ordered By: Ender Oates on 03-09-2023 Calcium [Mass/Vol] 8.7 mg/dL 8.5-10.1 [facility] Serum or plasma creatinine m easurement (mass/volume)Ordered By: Ender Oates on 03-09-2023 Creatinine [Mass/Vol] 0.96 mg/dL 0.55-1.02 [facility] Comment on above: The validity of the calculated GFR & GFRAA in patients over 70 years has not been determined. Clinical correlation is essential. Serum or plasma urea nitroge n measurement (mass/volume)Ordered By: Ender Oates on 03-09-2023 Urea nitrogen [Mass/Vol] 30 mg/dL 7-18 [facility] Thin prep Papanicolaou smear with manual screeningOrdered By: Ender Oates on 03-09-2023 Thin prep Papanicolaou smear with manual screening 14 U/L 15-37 [facility] Thin prep Papanicolaou smear with manual screening 5 5-15 [facility] Basophil percentageOrdered B y: Ender Oates on 03-07-2023 Basophil percentage 0-5 SEEN /hpf 0-5 [facility] Bilirubin Test strip Ql (U)O rdered By: Ender Oates on 03-07-2023 Bilirubin Ql (U) Negative Negative [facility] Culture, urineOrdered By: Donnie Oates on 03-07-2023 Bacteria identified Cx Nom (U) Proteus mirabilis [facility] Ketones Test strip Ql (U)Ord ered By: Ender Oates on 03-07-2023 Ketones Ql (U) Negative Negative [facility] Mucus LM Ql (Urine sed)Order ed By: Ender Oates on 03-07-2023 Mucus Ql (Urine sed) 0 SEEN /hpf [facility] Nitrite Test strip Ql (U)Ord ered By: Ender Oates on 03-07-2023 Nitrite Ql (U) Negative Negative [facility] Protein Test strip Ql (U)Ord ered By: Ender Oates on 03-07-2023 Protein Ql (U) Negative Negative [facility] Squamous epithelial cells de tection in urine sediment by light microscopyOrdered By: Ender Oates on 03-07-2023 Epithelial cells.squamous LM Ql (Urine sed) 0-5 SEEN /hpf 5-10 [facility] Urine blood detectionOrdered By: Ender Oates on 03-07-2023 RBC Ql (U) 10 /ul Negative [facility] RBC Ql (U) 0 SEEN /hpf 0-5 [facility] Urine clarityOrdered By: Ronaldo Oates on 03-07-2023 Clarity (U) Clear Clear [facility] Urine color determinationOrd ered By: Ender Oates on 03-07-2023 Color (U) Yellow Yellow [facility] Urine glucose detectionOrder ed By: Ender Oates on 03-07-2023 Glucose Ql (U) Normal mg/dl Normal [facility] Urine leukocyte esterase det ection by dipstickOrdered By: Ender Oates on 03-07-2023 Leukocyte esterase Test strip Ql (U) 100 /ul Negative [facility] Urine pHOrdered By: Ender Oates on 03-07-2023 pH (U) 6.5 [pH] 5.0 - 8.0 [facility] Urine sediment bacteria coun t by microscopy (number/high power field)Ordered By: Ender Oates on 03-07-2023 Bacteria LM.HPF (Urine sed) [#/Area] RARE /hpf None Seen [facility] Urine specific gravity measu rementOrdered By: Ender Oates on 03-07-2023 Specific gravity (U) [Rel density] 1.010 1.002-1.030 [facility] Urobilinogen Auto test strip Ql (U)Ordered By: Ender Oates on 03-07-2023 Urobilinogen Ql (U) Normal mg/dl Normal [facility] Basophil percentageOrdered B y: Ender Oates on 02-09-2023 Bilirubin [Mass/Vol] 0.50 mg/dL 0.20-1.00 [facility] Comment on above: For patients on eltr ombopag therapy, use of Dimension [place] TBIL is not recommended. Chloride [Moles/Vol] 107 mmol/L 98-107 [facility] Cholesterol [Mass/Vol] 121 mg/dL <200 [facility] Comment on above: <200 mg/dL Desirable 200-240 mg/dL Borderline >240 mg/dL High Risk Glucose [Mass/Vol] 87 mg/dL 74-106 [facility] Potassium [Moles/Vol] 4.3 mmol/L 3.5-5.1 [facility] Protein [Mass/Vol] 6.5 g/dL 6.4-8.2 [facility] Sodium [Moles/Vol] 138 mmol/L 136-145 [facility] Triglyceride [Mass/Vol] 81 mg/dL <199 [facility] Comment on above: The drugs N-Acetylcy steine and Metamizole may falsely depress this assay.Serum Triglycerides Reference Interval Normal <150 mg/dL Borderline high 150 - 199 mg/dL High 200 - 499 mg/dL Very High > or = 500 mg/dL WBC (Bld) [#/Vol] 6.3 10*3/uL 4.4-11.0 [facility] Blood erythrocytes count (nu mber/volume)Ordered By: Ender Oates on 02-09-2023 RBC (Bld) [#/Vol] 3.95 10*6/uL 4.2-5.[address] [facility] Blood hemoglobin measurement (mass/volume)Ordered By: Ender Oates on 02-09-2023 Hemoglobin (Bld) [Mass/Vol] 12.9 g/dL 12.0-15.0 [facility] Blood platelet mean volumeOr dered By: Ender Oates on 02-09-2023 Platelet mean volume (Bld) [Entitic vol] 11.4 fL 6.2-12.0 [facility] Determination of erythrocyte mean corpuscular volume (MCV)Ordered By: Ender Oates on 02-09-2023 MCV (RBC) [Entitic vol] 102.8 fL 81-99 [facility] Hematocrit Auto (Bld) [Volum e fraction]Ordered By: Ender Oates on 02-09-2023 Hematocrit (Bld) [Volume fraction] 40.6 % 37-47 [facility] Laboratory - Chemistry and C hemistry - challengeOrdered By: Ender Oates on 02-09-2023 ALP [Catalytic activity/Vol] 87 U/L 45-117 [facility] ALT [Catalytic activity/Vol] 14 U/L 13-56 [facility] CO2 [Moles/Vol] 28.0 mmol/L 21.0-32.0 [facility] Globulin (S) [Mass/Vol] 3.8 g/dL 2.2-4.2 [facility] Urea nitrogen/Creatinine [Mass ratio] 26.2 mg/mg 10-20 [facility] Laboratory - Hematology and Cell countsOrdered By: Ender Oates on 02-09-2023 Erythrocyte distribution width (RBC) [Entitic vol] 53.2 fL 35.1-43.9 [facility] Erythrocyte distribution width (RBC) [Ratio] 13.8 % 11.6-14.6 [facility] MCH (RBC) [Entitic mass] 32.7 pg 27.0-32.0 [facility] MCHC Auto (RBC) [Mass/Vol]Or dered By: Ender Oates on 02-09-2023 MCHC (RBC) [Mass/Vol] 31.8 g/dL 32-36 [facility] No Panel InformationOrdered By: Ender Oates on 02-09-2023 Estimated GFR (MDRD) Amer 83 mL/min >60 [facility] Comment on above: GFR Calc Estimated GFR (MDRD) Non-Af Amer 68 mL/min >60 [facility] Comment on above: Non- GFR Calc Platelets bldOrdered By: Ronaldo Oates on 02-09-2023 Platelets (Bld) [#/Vol] 173 10*3/uL 150-450 [facility] Serum or plasma albumin tammie urement (mass/volume)Ordered By: Ender Oates on 02-09-2023 Albumin [Mass/Vol] 2.7 g/dL 3.2-5.0 [facility] Serum or plasma albumin/glob ulin mass ratioOrdered By: Ender Oates on 02-09-2023 Albumin/Globulin [Mass ratio] 0.7 {ratio} 0.9-2.4 [facility] Serum or plasma calcium tammie urement (mass/volume)Ordered By: Ender Oates on 02-09-2023 Calcium [Mass/Vol] 8.1 mg/dL 8.5-10.1 [facility] Serum or plasma cholesterol in HDL measurement (mass/volume)Ordered By: Ender Oates on 02-09-2023 Cholesterol in HDL [Mass/Vol] 55 mg/dL >40 [facility] Comment on above: The drugs N-Acetylcy steine and Metamizole may falsely depress this assay. Reference Range HDL <40 mg/dL Low HDL Cholesterol HDL >or= 60 mg/dL High HDL Cholesterol Serum or plasma cholesterol in VLDL measurement (mass/volume)Ordered By: Ender Oates on 02-09-2023 Cholesterol in VLDL [Mass/Vol] 16 mg/dL 5-40 [facility] Serum or plasma creatinine m easurement (mass/volume)Ordered By: Ender Oates on 02-09-2023 Creatinine [Mass/Vol] 0.88 mg/dL 0.55-1.02 [facility] Comment on above: The validity of the calculated GFR & GFRAA in patients over 70 years has not been determined. Clinical correlation is essential. Serum or plasma low density lipoprotein (LDL) cholesterol measurement (mass/volume)Ordered By: Ender Oates on 02-09-2023 Cholesterol in LDL [Mass/Vol] 50 mg/dL 0-130 [facility] Serum or plasma urea nitroge n measurement (mass/volume)Ordered By: Ender Oates on 02-09-2023 Urea nitrogen [Mass/Vol] 23 mg/dL 7-18 [facility] Thin prep Papanicolaou smear with manual screeningOrdered By: Ender Oates on 02-09-2023 Thin prep Papanicolaou smear with manual screening 15 U/L 15-37 [facility] Thin prep Papanicolaou smear with manual screening 3 5-15 [facility] Basophil percentageOrdered B y: Ender Oates on 01-12-2023 Bilirubin [Mass/Vol] 0.30 mg/dL 0.20-1.00 [facility] Comment on above: For patients on eltr ombopag therapy, use of Dimension [place] TBIL is not recommended. Chloride [Moles/Vol] 107 mmol/L 98-107 [facility] Glucose [Mass/Vol] 86 mg/dL 74-106 [facility] Potassium [Moles/Vol] 4.4 mmol/L 3.5-5.1 [facility] Protein [Mass/Vol] 6.3 g/dL 6.4-8.2 [facility] Sodium [Moles/Vol] 141 mmol/L 136-145 [facility] WBC (Bld) [#/Vol] 4.9 10*3/uL 4.4-11.0 [facility] Blood erythrocytes count (nu mber/volume)Ordered By: Ender Oates on 01-12-2023 RBC (Bld) [#/Vol] 3.85 10*6/uL 4.2-5.[address] [facility] Blood hemoglobin measurement (mass/volume)Ordered By: Ender Oates on 01-12-2023 Hemoglobin (Bld) [Mass/Vol] 12.9 g/dL 12.0-15.0 [facility] Blood platelet mean volumeOr dered By: Ender Oates on 01-12-2023 Platelet mean volume (Bld) [Entitic vol] 11.2 fL 6.2-12.0 [facility] Determination of erythrocyte mean corpuscular volume (MCV)Ordered By: Ender Oates on 01-12-2023 MCV (RBC) [Entitic vol] 106.5 fL 81-99 [facility] Hematocrit Auto (Bld) [Volum e fraction]Ordered By: Ender Oates on 01-12-2023 Hematocrit (Bld) [Volume fraction] 41.0 % 37-47 [facility] - Chemistry and C hemistry - challengeOrdered By: Ender Oates on 01-12-2023 ALP [Catalytic activity/Vol] 70 U/L 45-117 [facility] ALT [Catalytic activity/Vol] 18 U/L 13-56 [facility] CO2 [Moles/Vol] 31.0 mmol/L 21.0-32.0 [facility] Globulin (S) [Mass/Vol] 3.6 g/dL 2.2-4.2 [facility] Urea nitrogen/Creatinine [Mass ratio] 24.5 mg/mg 10-20 [facility] - Hematology and Cell countsOrdered By: Ender Oates on 01-12-2023 Erythrocyte distribution width (RBC) [Entitic vol] 56.8 fL 35.1-43.9 [facility] Erythrocyte distribution width (RBC) [Ratio] 14.5 % 11.6-14.6 [facility] MCH (RBC) [Entitic mass] 33.5 pg 27.0-32.0 [facility] MCHC Auto (RBC) [Mass/Vol]Or dered By: Ender Oates on 01-12-2023 MCHC (RBC) [Mass/Vol] 31.5 g/dL 32-36 [facility] No Panel InformationOrdered By: Ender Oates on 01-12-2023 Estimated GFR (MDRD) Amer 73 mL/min >60 [facility] Comment on above: GFR Calc Estimated GFR (MDRD) Non-Af Amer 60 mL/min >60 [facility] Comment on above: Non- GFR Calc Platelets bldOrdered By: Ronaldo Oates on 01-12-2023 Platelets (Bld) [#/Vol] 171 10*3/uL 150-450 [facility] Serum or plasma albumin tammie urement (mass/volume)Ordered By: Ender Oates on 01-12-2023 Albumin [Mass/Vol] 2.7 g/dL 3.2-5.0 [facility] Serum or plasma albumin/glob ulin mass ratioOrdered By: Ender Oates on 01-12-2023 Albumin/Globulin [Mass ratio] 0.8 {ratio} 0.9-2.4 [facility] Serum or plasma calcium tammie urement (mass/volume)Ordered By: Ender Oates on 01-12-2023 Calcium [Mass/Vol] 8.7 mg/dL 8.5-10.1 [facility] Serum or plasma creatinine m easurement (mass/volume)Ordered By: Ender Oates on 01-12-2023 Creatinine [Mass/Vol] 0.98 mg/dL 0.55-1.02 [facility] Comment on above: The validity of the calculated GFR & GFRAA in patients over 70 years has not been determined. Clinical correlation is essential. Serum or plasma urea nitroge n measurement (mass/volume)Ordered By: Endre Oates on 01-12-2023 Urea nitrogen [Mass/Vol] 24 mg/dL 7-18 [facility] Thin prep Papanicolaou smear with manual screeningOrdered By: Ender Oates on 01-12-2023 Thin prep Papanicolaou smear with manual screening 17 U/L 15-37 [facility] Thin prep Papanicolaou smear with manual screening 3 5-15 [facility] Automated blood hematocrit ( percentage)Ordered By: Ender Oates on 12-30-2022 Hematocrit (Bld) [Volume fraction] 43.6 % 37-47 [facility] Basophil percentageOrdered B y: Ender Oates on 12-30-2022 Bilirubin [Mass/Vol] 0.50 mg/dL 0.20-1.00 [facility] Comment on above: For patients on eltr ombopag therapy, use of Dimension [place] TBIL is not recommended. Chloride [Moles/Vol] 105 mmol/L 98-107 [facility] Glucose [Mass/Vol] 89 mg/dL 74-106 [facility] Potassium [Moles/Vol] 4.1 mmol/L 3.5-5.1 [facility] Protein [Mass/Vol] 7.4 g/dL 6.4-8.2 [facility] Sodium [Moles/Vol] 137 mmol/L 136-145 [facility] WBC (Bld) [#/Vol] 6.6 10*3/uL 4.4-11.0 [facility] Blood erythrocytes count (nu mber/volume)Ordered By: Ender Oates on 12-30-2022 RBC (Bld) [#/Vol] 4.20 10*6/uL 4.2-5.[address] [facility] Blood hemoglobin measurement (mass/volume)Ordered By: Ender Oates on 12-30-2022 Hemoglobin (Bld) [Mass/Vol] 13.9 g/dL 12.0-15.0 [facility] Blood platelet mean volumeOr dered By: Ender Oates on 12-30-2022 Platelet mean volume (Bld) [Entitic vol] 12.2 fL 6.2-12.0 [facility] CBCon 12-30-2022 MCH 33.1 pG 27 - 34 pG [facility] MCHC 31.9 % Abnormal 32 - 36 % [facility] MPV 12.2 % Abnormal 7.3 - 11.1 % [facility] RDW-SD 56.2 [facility] CMP (EXTERNAL)on 12-30-2022 Alk Phos Total 85 U/L 45 - 117 U/L [facility] AST [Catalytic activity/Vol] 20 U/L 8 - 37 U/L [facility] Bili Total 0.50 mg/dL 0.2 - 1 mg/dL [facility] CO2 [Moles/Vol] 26 mmol/L 21 - 32 MEQ/L [facility] GFR AFR AMER 85 mL/MIN [facility] GFR/1.73 sq M.predicted among non-blacks MDRD (S/P/Bld) [Vol rate/Area] 70 mL/min/{1.73_m2} [facility] Determination of erythrocyte mean corpuscular volume (MCV)Ordered By: Ender Oates on 12-30-2022 MCV (RBC) [Entitic vol] 103.8 fL 81-99 [facility] Laboratory - Chemistry and C hemistry - challengeOrdered By: Ender Oates on 12-30-2022 ALP [Catalytic activity/Vol] 85 U/L 45-117 [facility] ALT [Catalytic activity/Vol] 18 U/L 13-56 [facility] CO2 [Moles/Vol] 26.0 mmol/L 21.0-32.0 [facility] Globulin (S) [Mass/Vol] 4.1 g/dL 2.2-4.2 [facility] Urea nitrogen/Creatinine [Mass ratio] 35.0 mg/mg 10-20 [facility] - Hematology and Cell countsOrdered By: Ender Oates on 12-30-2022 Erythrocyte distribution width (RBC) [Entitic vol] 56.2 fL 35.1-43.9 [facility] Erythrocyte distribution width (RBC) [Ratio] 14.5 % 11.6-14.6 [facility] MCH (RBC) [Entitic mass] 33.1 pg 27.0-32.0 [facility] - Microbiology an d Antimicrobial susceptibilityOrdered By: Ender Oates on 12-30-2022 Bacteria identified Cx Nom (Bld) No growth in 5 days. [facility] Bacteria identified Cx Nom (Bld) No growth in 5 days. [facility] MCHC Auto (RBC) [Mass/Vol]Or dered By: Ender Oates on 12-30-2022 MCHC (RBC) [Mass/Vol] 31.9 g/dL 32-36 [facility] No Panel InformationOrdered By: Ender Oates on 12-30-2022 Estimated GFR (MDRD) Amer 85 mL/min >60 [facility] Comment on above: GFR Calc Estimated GFR (MDRD) Non-Af Amer 70 mL/min >60 [facility] Comment on above: Non- GFR Calc Platelets bldOrdered By: Ronaldo Oates on 12-30-2022 Platelets (Bld) [#/Vol] 168 10*3/uL 150-450 [facility] Serum or plasma albumin tammie urement (mass/volume)Ordered By: Ender Oates on 12-30-2022 Albumin [Mass/Vol] 3.3 g/dL 3.2-5.0 [facility] Serum or plasma albumin/glob ulin mass ratioOrdered By: Ender Oates on 12-30-2022 Albumin/Globulin [Mass ratio] 0.8 {ratio} 0.9-2.4 [facility] Serum or plasma calcium tammie urement (mass/volume)Ordered By: Ender Oates on 12-30-2022 Calcium [Mass/Vol] 9.0 mg/dL 8.5-10.1 [facility] Serum or plasma creatinine m easurement (mass/volume)Ordered By: Ender Oates on 12-30-2022 Creatinine [Mass/Vol] 0.86 mg/dL 0.55-1.02 [facility] Comment on above: The validity of the calculated GFR & GFRAA in patients over 70 years has not been determined. Clinical correlation is essential. Serum or plasma urea nitroge n measurement (mass/volume)Ordered By: Ender Oates on 12-30-2022 Urea nitrogen [Mass/Vol] 30 mg/dL 7-18 [facility] Thin prep Papanicolaou smear with manual screeningOrdered By: Ender Oates on 12-30-2022 Thin prep Papanicolaou smear with manual screening 20 U/L 15-37 [facility] Thin prep Papanicolaou smear with manual screening 6 5-15 [facility] Automated blood hematocrit ( percentage)Ordered By: Ender Oates on 12-09-2022 Hematocrit (Bld) [Volume fraction] 41.4 % 37-47 [facility] Basophil percentageOrdered B y: Ender Oates on 12-09-2022 Bilirubin [Mass/Vol] 0.40 mg/dL 0.20-1.00 [facility] Comment on above: For patients on eltr ombopag therapy, use of Dimension [place] TBIL is not recommended. Chloride [Moles/Vol] 107 mmol/L 98-107 [facility] Glucose [Mass/Vol] 107 mg/dL 74-106 [facility] Comment on above: Fasting Glucose resu lt from 100 to 125 mg/dL suggests IMPAIRED HOMEOSTASIS per A.D.A. criteria. Potassium [Moles/Vol] 4.0 mmol/L 3.5-5.1 [facility] Protein [Mass/Vol] 6.3 g/dL 6.4-8.2 [facility] Sodium [Moles/Vol] 138 mmol/L 136-145 [facility] WBC (Bld) [#/Vol] 6.1 10*3/uL 4.4-11.0 [facility] Blood erythrocytes count (nu mber/volume)Ordered By: Ender Oates on 12-09-2022 RBC (Bld) [#/Vol] 3.98 10*6/uL 4.2-5.[address] [facility] Blood hemoglobin measurement (mass/volume)Ordered By: Ender Oates on 12-09-2022 Hemoglobin (Bld) [Mass/Vol] 12.9 g/dL 12.0-15.0 [facility] Blood platelet mean volumeOr dered By: Ender Oates on 12-09-2022 Platelet mean volume (Bld) [Entitic vol] 11.0 fL 6.2-12.0 [facility] CBCon 12-09-2022 Hemoglobin (Bld) [Mass/Vol] 15.7 g/dL 12 - 16 g/dL [facility] MCH 32.4 pG 27 - 34 pG [facility] MCHC 31.2 % Abnormal 32 - 36 % [facility] MCV (RBC) [Entitic vol] 104 fL Abnormal 80 - 100 fL [facility] MPV 11.0 % 7.3 - 11.1 % [facility] RBC (Bld) [#/Vol] 4.76 10*6/uL [facility] RDW-SD 56.9 [facility] CMP (EXTERNAL)on 12-09-2022 Alk Phos Total 74 U/L 45 - 117 U/L [facility] AST [Catalytic activity/Vol] 10 U/L 8 - 37 U/L [facility] Bili Total 0.40 mg/dL 0.2 - 1 mg/dL [facility] CO2 [Moles/Vol] 27 mmol/L 21 - 32 MEQ/L [facility] Creatinine [Mass/Vol] 0.74 mg/dL 0.6 - 1.3 MG/DL [facility] GFR AFR AMER 101 mL/MIN [facility] GFR/1.73 sq M.predicted among non-blacks MDRD (S/P/Bld) [Vol rate/Area] 84 mL/min/{1.73_m2} [facility] Glucose [Mass/Vol] 104 mg/dL 74 - 106 MG/DL [facility] Urea nitrogen [Mass/Vol] 26 mg/dL Abnormal 7 - 18 MG/D L [facility] Determination of erythrocyte mean corpuscular volume (MCV)Ordered By: Ender Oates on 12-09-2022 MCV (RBC) [Entitic vol] 104.0 fL 81-99 [facility] Laboratory - Chemistry and C hemistry - challengeOrdered By: Ender Oates on 12-09-2022 ALP [Catalytic activity/Vol] 74 U/L 45-117 [facility] ALT [Catalytic activity/Vol] 17 U/L 13-56 [facility] CO2 [Moles/Vol] 27.0 mmol/L 21.0-32.0 [facility] Globulin (S) [Mass/Vol] 3.6 g/dL 2.2-4.2 [facility] Urea nitrogen/Creatinine [Mass ratio] 23.3 mg/mg 10-20 [facility] - Hematology and Cell countsOrdered By: Ender Oates on 12-09-2022 Erythrocyte distribution width (RBC) [Entitic vol] 56.9 fL 35.1-43.9 [facility] Erythrocyte distribution width (RBC) [Ratio] 14.8 % 11.6-14.6 [facility] MCH (RBC) [Entitic mass] 32.4 pg 27.0-32.0 [facility] MCHC Auto (RBC) [Mass/Vol]Or dered By: Ender Oates on 12-09-2022 MCHC (RBC) [Mass/Vol] 31.2 g/dL 32-36 [facility] No Panel InformationOrdered By: Ender Oates on 12-09-2022 Estimated GFR (MDRD) Amer 60 mL/min >60 [facility] Comment on above: GFR Calc Estimated GFR (MDRD) Non-Af Amer 50 mL/min >60 [facility] Comment on above: Non- GFR Calc Platelets bldOrdered By: Ronaldo Oates on 12-09-2022 Platelets (Bld) [#/Vol] 185 10*3/uL 150-450 [facility] Serum or plasma albumin tammie urement (mass/volume)Ordered By: Ender Oates on 12-09-2022 Albumin [Mass/Vol] 2.7 g/dL 3.2-5.0 [facility] Serum or plasma albumin/glob ulin mass ratioOrdered By: Ender Oates on 12-09-2022 Albumin/Globulin [Mass ratio] 0.8 {ratio} 0.9-2.4 [facility] Serum or plasma calcium tammie urement (mass/volume)Ordered By: Ender Oates on 12-09-2022 Calcium [Mass/Vol] 8.3 mg/dL 8.5-10.1 [facility] Serum or plasma creatinine m easurement (mass/volume)Ordered By: Ender Oates on 12-09-2022 Creatinine [Mass/Vol] 1.16 mg/dL 0.55-1.02 [facility] Comment on above: The validity of the calculated GFR & GFRAA in patients over 70 years has not been determined. Clinical correlation is essential. Serum or plasma urea nitroge n measurement (mass/volume)Ordered By: Ender Oates on 12-09-2022 Urea nitrogen [Mass/Vol] 27 mg/dL 7-18 [facility] Thin prep Papanicolaou smear with manual screeningOrdered By: Ender Oates on 12-09-2022 Thin prep Papanicolaou smear with manual screening 18 U/L 15-37 [facility] Thin prep Papanicolaou smear with manual screening 4 5-15 [facility] Basophil percentageOrdered B y: Ender Oates on 11-27-2022 Bilirubin [Mass/Vol] 0.30 mg/dL 0.20-1.00 [facility] Comment on above: For patients on eltr ombopag therapy, use of Dimension [place] TBIL is not recommended. Chloride [Moles/Vol] 107 mmol/L 98-107 [facility] Glucose [Mass/Vol] 104 mg/dL 74-106 [facility] Comment on above: Fasting Glucose resu lt from 100 to 125 mg/dL suggests IMPAIRED HOMEOSTASIS per A.D.A. criteria. Potassium [Moles/Vol] 4.9 mmol/L 3.5-5.1 [facility] Comment on above: Slight Hemolysis, Re sult may be falsely increased. Protein [Mass/Vol] 7.4 g/dL 6.4-8.2 [facility] Sodium [Moles/Vol] 137 mmol/L 136-145 [facility] Laboratory - Chemistry and C hemistry - challengeOrdered By: Ender Oates on 11-27-2022 ALP [Catalytic activity/Vol] 93 U/L 45-117 [facility] ALT [Catalytic activity/Vol] 19 U/L 13-56 [facility] CO2 [Moles/Vol] 27.0 mmol/L 21.0-32.0 [facility] Globulin (S) [Mass/Vol] 4.4 g/dL 2.2-4.2 [facility] Natriuretic peptide B (Bld) [Mass/Vol] 64.0 pg/mL 0-100 [facility] Urea nitrogen/Creatinine [Mass ratio] 35.3 mg/mg 10-20 [facility] No Panel InformationOrdered By: Ender Oates on 11-27-2022 Estimated GFR (MDRD) Amer 101 mL/min >60 [facility] Comment on above: GFR Calc Estimated GFR (MDRD) Non-Af Amer 84 mL/min >60 [facility] Comment on above: Non- GFR Calc Thyroid Stimulating Hormone (TSH) 3.41 uIU/mL 0.358-3.74 [facility] Serum or plasma C reactive p rotein measurement (mass/volume)Ordered By: Ender Oates on 11-27-2022 CRP [Mass/Vol] mg/L 0.0-3.0 [facility] Comment on above: C-Reactive Protein ( CRP) provides useful information for thediagnosis, therapy and monitoring of inflammatory processesand associated diseases. For the evaluation of Relative Riskfor Cardiovascular Disease, a High Sensitivity CRP (HSCRP)should be ordered. Serum or plasma albumin tammie urement (mass/volume)Ordered By: Ender Oates on 11-27-2022 Albumin [Mass/Vol] 3.0 g/dL 3.2-5.0 [facility] Serum or plasma albumin/glob ulin mass ratioOrdered By: Ender Oates on 11-27-2022 Albumin/Globulin [Mass ratio] 0.7 {ratio} 0.9-2.4 [facility] Serum or plasma calcium tammie urement (mass/volume)Ordered By: Ender Oates on 11-27-2022 Calcium [Mass/Vol] 8.6 mg/dL 8.5-10.1 [facility] Serum or plasma creatinine m easurement (mass/volume)Ordered By: Ender Oates on 11-27-2022 Creatinine [Mass/Vol] 0.74 mg/dL 0.55-1.02 [facility] Comment on above: The validity of the calculated GFR & GFRAA in patients over 70 years has not been determined. Clinical correlation is essential. Serum or plasma urea nitroge n measurement (mass/volume)Ordered By: Ender Oates on 11-27-2022 Urea nitrogen [Mass/Vol] 26 mg/dL 7-18 [facility] Thin prep Papanicolaou smear with manual screeningOrdered By: Ender Oates on 11-27-2022 Thin prep Papanicolaou smear with manual screening 20 U/L 15-37 [facility] Comment on above: Slight Hemolysis, Re sult may be falsely increased. Thin prep Papanicolaou smear with manual screening 3 5-15 [facility] Basic metabolic 1998 panelon 11-17-2022 Anion gap [Moles/Vol] 5 mmol/L 3 - 13 mmol/L [facility] Calcium [Mass/Vol] 8.5 mg/dL 8.4 - 10. 4 mg/dL [facility] Chloride [Moles/Vol] 105 mmol/L 98 - 10 7 mmol/L [facility] CO2 [Moles/Vol] 27 mmol/L 22 - 30 mmol/L [facility] Creatinine [Mass/Vol] 0.79 mg/dL 0.52 - 1.04 mg/dL [facility] GFR/1.73 sq M.predicted MDRD (S/P/Bld) [Vol rate/Area] 82.6 mL/min/{1.73_m2} [facility] Comment on above: Calculation based on the Chronic Kidney Disease Epidemiology Collaboration (CKD-EPI) equation refit without adjustment for race Glucose [Mass/Vol] 93 mg/dL 70 - 100 mg/dL [facility] Interpretation and review of laboratory results Abnormal [facility] Potassium [Moles/Vol] 4.5 mmol/L 3.5 - 5.1 mmol/L [facility] Sodium [Moles/Vol] 137 mmol/L 135 - 145 mmol/L [facility] Urea nitrogen [Mass/Vol] 32 mg/dL High 7 - 17 mg/d L [facility] CBC W Auto Differential pane l (Bld)Ordered By: Mychal Blackwood on 11-17-2022 Basophils (Bld) [#/Vol] 0.1 10*3/uL 0.0 - 0.2 10*3/uL [facility] Basophils/100 WBC (Bld) 1.6 % 0.0 - 2.0 % [facility] Eosinophils (Bld) [#/Vol] 0.1 10*3/uL 0.0 - 0.5 10*3/uL [facility] Eosinophils/100 WBC (Bld) 0.9 % Low 1.0 - 6.0 % [facility] Erythrocyte distribution width (RBC) [Ratio] 15.2 % High 11.5 - 14.5 % [facility] Hematocrit (Bld) [Volume fraction] 45.0 % 35.0 - 47.0 % [facility] Hemoglobin (Bld) [Mass/Vol] 15.3 g/dL 11.7 - 16.0 g/dL [facility] Interpretation and review of laboratory results Abnormal [facility] Lymphocytes (Bld) [#/Vol] 1.9 10*3/uL 1.0 - 4.3 10*3/uL [facility] Lymphocytes/100 WBC (Bld) 27.2 % 20.0 - 40.0 % [facility] MCH (RBC) [Entitic mass] 33.5 pg 26. 0 - 34.0 pg [facility] MCHC (RBC) [Mass/Vol] 34.1 % 32.0 - 36.0 % [facility] MCV (RBC) [Entitic vol] 98.3 fL High 80.0 - 98.0 fL [facility] Monocytes (Bld) [#/Vol] 0.6 10*3/uL 0.0 - 0.8 10*3/uL [facility] Monocytes/100 WBC (Bld) 8.6 % 2.0 - 10.0 % [facility] Neutrophils (Bld) [#/Vol] 4.4 10*3/uL 1.8 - 7.0 10*3/uL [facility] Neutrophils/100 WBC (Bld) 61.7 % 40.0 - 80.0 % [facility] Nucleated RBC/100 WBC (Bld) [Ratio] 0.0 % [facility] Platelet mean volume (Bld) [Entitic vol] 9.5 fL 7.4 - 12.4 fL [facility] Platelets (Bld) [#/Vol] 200 10*3/uL 140 - 440 10*3/uL [facility] RBC (Bld) [#/Vol] 4.58 10*6/uL 3.8 - 5.20 10*6/uL [facility] WBC (Bld) [#/Vol] 7.1 10*3/uL 3.6 - 10.7 10*3/uL [facility] CTA Chest vessels WO and W c ontrast [place] 11-17-2022 Impression:The etiology of the symptoms is not certain. No large central embolism seen.. Report Dictated on Electronically Signed By: John Paul Boone Electronically Signed Date/Time: 11/17/2022 11:24 AM EDT [facility] Patient Name: CHARLIE NGUYEN : [...] abdomen: No convincing evidence of acute process.. [facility] John Paul Boone MD - 11/17/2022 [...] Electronically Signed Date/Time: 11/17/2022 11:24 AM EDT [facility] Radiology Study observation (narrative) [facility] arun CTA Chest vessels WO and W c ontrast IVOrdered By: John Paul Boone on 11-17-2022 [employer] Work Phone: Laboratory - Chemistry and C hemistry - challengeon 11-17-2022 Troponin I.cardiac [Mass/Vol] ng/mL 0.000 - 0.034 ng/mL [employer] [facility] Natriuretic peptide B [Mass/ Vol]on 11-17-2022 Natriuretic peptide B (Bld) [Mass/Vol] 85 pg/mL <20 - 300 [employer] No Panel Informationon 11-17 No evidence of [...] Goodman DO on 11/17/2022 at 11:06 EDT. Online Content Coordinator Details A chavez scale, color Doppler imaging [...] Interpretation and review of laboratory results Normal [facility] Troponin I.cardiac [Mass/Vol ]on 11-17-2022 Patients with high levels of Biotin oral intake (ie >5 mg/day) may have falsely decreased Troponin levels. [facility] Basophil percentageOrdered B y: Ender Oates on 11-10-2022 Bilirubin [Mass/Vol] 0.60 mg/dL 0.20-1.00 [facility] Comment on above: For patients on eltr ombopag therapy, use of Dimension [place] TBIL is not recommended. Chloride [Moles/Vol] 106 mmol/L 98-107 [facility] Glucose [Mass/Vol] 95 mg/dL 74-106 [facility] Potassium [Moles/Vol] 5.5 mmol/L 3.5-5.1 [facility] Protein [Mass/Vol] 7.3 g/dL 6.4-8.2 [facility] Sodium [Moles/Vol] 140 mmol/L 136-145 [facility] WBC (Bld) [#/Vol] 9.6 10*3/uL 4.4-11.0 [facility] Blood erythrocytes count (nu mber/volume)Ordered By: Ender Oates on 11-10-2022 RBC (Bld) [#/Vol] 4.76 10*6/uL 4.2-5.[address] [facility] Blood hemoglobin measurement (mass/volume)Ordered By: Ender Oates on 11-10-2022 Hemoglobin (Bld) [Mass/Vol] 15.7 g/dL 12.0-15.0 [facility] Blood platelet mean volumeOr dered By: Ender Oates on 11-10-2022 Platelet mean volume (Bld) [Entitic vol] 11.7 fL 6.2-12.0 [facility] Determination of erythrocyte mean corpuscular volume (MCV)Ordered By: Ender Oates on 11-10-2022 MCV (RBC) [Entitic vol] 104.0 fL 81-99 [facility] Hematocrit Auto (Bld) [Volum e fraction]Ordered By: Ender Oates on 11-10-2022 Hematocrit (Bld) [Volume fraction] 49.5 % 37-47 [facility] Laboratory - Chemistry and C hemistry - challengeOrdered By: Ender Oates on 11-10-2022 ALP [Catalytic activity/Vol] 91 U/L 45-117 [facility] ALT [Catalytic activity/Vol] 17 U/L 13-56 [facility] CO2 [Moles/Vol] 24.0 mmol/L 21.0-32.0 [facility] Globulin (S) [Mass/Vol] 3.9 g/dL 2.2-4.2 [facility] [place] [facility] Urea nitrogen/Creatinine [Mass ratio] 34.2 mg/mg 10-20 [facility] - Hematology and Cell countsOrdered By: Ender Oates on 11-10-2022 Erythrocyte distribution width (RBC) [Entitic vol] 57.3 fL 35.1-43.9 [facility] Erythrocyte distribution width (RBC) [Ratio] 14.7 % 11.6-14.6 [facility] MCH (RBC) [Entitic mass] 33.0 pg 27.0-32.0 [facility] MCHC Auto (RBC) [Mass/Vol]Or dered By: Ender Oates on 11-10-2022 MCHC (RBC) [Mass/Vol] 31.7 g/dL 32-36 [facility] No Panel InformationOrdered By: Ender Oates on 11-10-2022 Estimated GFR (MDRD) Amer 72 mL/min >60 [facility] Comment on above: GFR Calc Estimated GFR (MDRD) Non-Af Amer 59 mL/min >60 [facility] Comment on above: Non- GFR Calc Platelets bldOrdered By: Ronaldo Oates on 11-10-2022 Platelets (Bld) [#/Vol] 206 10*3/uL 150-450 [facility] Serum or plasma albumin tammie urement (mass/volume)Ordered By: Ender Oates on 11-10-2022 Albumin [Mass/Vol] 3.4 g/dL 3.2-5.0 [facility] Serum or plasma albumin/glob ulin mass ratioOrdered By: Ender Oates on 11-10-2022 Albumin/Globulin [Mass ratio] 0.9 {ratio} 0.9-2.4 [facility] Serum or plasma calcium tammie urement (mass/volume)Ordered By: Ender Oates on 11-10-2022 Calcium [Mass/Vol] 9.2 mg/dL 8.5-10.1 [facility] Serum or plasma creatinine m easurement (mass/volume)Ordered By: Ender Oates on 11-10-2022 Creatinine [Mass/Vol] 0.99 mg/dL 0.55-1.02 [facility] Comment on above: The validity of the calculated GFR & GFRAA in patients over 70 years has not been determined. Clinical correlation is essential. Serum or plasma urea nitroge n measurement (mass/volume)Ordered By: Ender Oates on 11-10-2022 Urea nitrogen [Mass/Vol] 34 mg/dL 7-18 [facility] Thin prep Papanicolaou smear with manual screeningOrdered By: Ender Oates on 11-10-2022 Thin prep Papanicolaou smear with manual screening 20 U/L 15-37 [facility] Thin prep Papanicolaou smear with manual screening 10 5-15 [facility] Automated blood hematocrit ( percentage)Ordered By: Ender Oates on 10-06-2022 Hematocrit (Bld) [Volume fraction] 49.3 % 37-47 [facility] Basophil percentageOrdered B y: Ender Oates on 10-06-2022 Chloride [Moles/Vol] 108 mmol/L 98-107 [facility] Glucose [Mass/Vol] 156 mg/dL 74-106 [facility] Comment on above: Fasting Glucose resu lt greater than or equal to 126 mg/dL suggests DIABETES MELLITUS per A.D.A. criteria. Potassium [Moles/Vol] 4.3 mmol/L 3.5-5.1 [facility] Protein [Mass/Vol] 7.9 g/dL 6.4-8.2 [facility] Sodium [Moles/Vol] 139 mmol/L 136-145 [facility] WBC (Bld) [#/Vol] 8.1 10*3/uL 4.4-11.0 [facility] Bilirubin [Mass/Vol] 0.70 mg/dL 0.20-1.00 [facility] Comment on above: For patients on eltr ombopag therapy, use of Dimension [place] TBIL is not recommended. Blood erythrocytes count (nu mber/volume)Ordered By: Ender Oates on 10-06-2022 RBC (Bld) [#/Vol] 4.89 10*6/uL 4.2-5.[address] [facility] Blood hemoglobin measurement (mass/volume)Ordered By: Ender Oates on 10-06-2022 Hemoglobin (Bld) [Mass/Vol] 15.9 g/dL 12.0-15.0 [facility] Blood platelet mean volumeOr dered By: Ender Oates on 10-06-2022 Platelet mean volume (Bld) [Entitic vol] 11.6 fL 6.2-12.0 [facility] CBCon 10-06-2022 Erythrocyte distribution width (RBC) [Ratio] 14.8 % 11.7 - 15.0 % [facility] Erythrocyte distribution width (RBC) [Ratio] 14.7 % 11.7 - 15.0 % [facility] Hematocrit (Bld) [Volume fraction] 43.5 % Abnormal 33 - 42 % [facility] Hematocrit (Bld) [Volume fraction] 45.6 % 35 - 47 % [facility] Hemoglobin (Bld) [Mass/Vol] 13.9 g/dL 12 - 16 g/dL [facility] Hemoglobin (Bld) [Mass/Vol] 14.1 g/dL 12 - 16 g/dL [facility] MCH 31.7 pG 27 - 34 pG [facility] MCH (RBC) [Entitic mass] 32.6 pg 25. 4 - 34.6 pg [facility] MCHC 32 % 32 - 36 % [facility] MCHC 30.9 % Abnormal 32 - 36 % [facility] MCV (RBC) [Entitic vol] 101.9 fL Abnormal 80 - 100 fL [facility] MCV (RBC) [Entitic vol] 102.5 fL Abnormal 80 - 100 fL [facility] MPV 11.2 % Abnormal 7.3 - 11.1 % [facility] MPV 10.7 % 7.3 - 11.1 % [facility] Platelets (Bld) [#/Vol] 198 10*3/uL 150 - 400 k/uL [facility] Platelets (Bld) [#/Vol] 222 10*3/uL 150 - 400 k/uL [facility] RBC (Bld) [#/Vol] 4.27 10*6/uL [facility] RBC (Bld) [#/Vol] 4.45 10*6/uL 4.2 - 5.4 M/uL [facility] RDW-SD 55.7 [facility] RDW-SD 56 [facility] WBC (Bld) [#/Vol] 7.7 10*3/uL 4.0 - 11.0 K/uL [facility] WBC (Bld) [#/Vol] 8.2 10*3/uL 4.0 - 11.0 K/uL [facility] CMP (EXTERNAL)on 10-06-2022 Albumin [Mass/Vol] 3.1 g/dL Abnormal 3.2 - 4.6 gm/dL [facility] Alk Phos Total 74 U/L 45 - 117 U/L [facility] Alk Phos Total 61 U/L 45 - 117 U/L [facility] Alk Phos Total 76 U/L 45 - 117 U/L [facility] ALT [Catalytic activity/Vol] 18 U/L 12 - 78 U/L [facility] ALT [Catalytic activity/Vol] 20 U/L 12 - 78 U/L [facility] AST [Catalytic activity/Vol] 19 U/L 8 - 37 U/L [facility] Bili Total 0.70 mg/dL 0.2 - 1 mg/dL [facility] Calcium [Mass/Vol] 8.7 mg/dL 8.5 - 10. 1 mg/dL [facility] Calcium [Mass/Vol] 8.8 mg/dL 8.5 - 10. 1 mg/dL [facility] Chloride [Moles/Vol] 104 mmol/L 98 - 10 7 MEQ/L [facility] Chloride [Moles/Vol] 109 mmol/L Abnormal 98 - 10 7 MEQ/L [facility] CO2 [Moles/Vol] 26 mmol/L 21 - 32 MEQ/L [facility] CO2 [Moles/Vol] 28 mmol/L 21 - 32 MEQ/L [facility] CO2 [Moles/Vol] 23 mmol/L 21 - 32 MEQ/L [facility] Creatinine [Mass/Vol] 0.76 mg/dL 0.6 - 1.3 MG/DL [facility] GFR AFR AMER 98 mL/MIN [facility] GFR AFR AMER 91 mL/MIN [facility] GFR/1.73 sq M.predicted among non-blacks MDRD (S/P/Bld) [Vol rate/Area] 81 mL/min/{1.73_m2} [facility] GFR/1.73 sq M.predicted among non-blacks MDRD (S/P/Bld) [Vol rate/Area] 75 mL/min/{1.73_m2} [facility] Globulin (S) [Mass/Vol] 3.8 g/dL [facility] Glucose [Mass/Vol] 79 mg/dL 74 - 106 MG/DL [facility] MCH 32.5 pG 27 - 34 pG [facility] MCHC 32.3 % 32 - 36 % [facility] MPV 11.6 % Abnormal 7.3 - 11.1 % [facility] Potassium [Moles/Vol] 4.5 mmol/L 3.5 - 5.1 mmol/L [facility] Potassium [Moles/Vol] 3.8 mmol/L 3.5 - 5.1 mmol/L [facility] Protein [Mass/Vol] 6.9 g/dL 6.4 - 8.2 gm/dL [facility] Protein [Mass/Vol] 6.5 g/dL 6.4 - 8.2 gm/dL [facility] RDW-SD 55.8 [facility] Sodium [Moles/Vol] 138 mmol/L 136 - 145 mmol/L [facility] Urea nitrogen [Mass/Vol] 23 mg/dL Abnormal 7 - 18 MG/D L [facility] Urea nitrogen/Creatinine [Mass ratio] 34.3 mg/mg Abnormal 9 - 20 [facility] Determination of erythrocyte mean corpuscular volume (MCV)Ordered By: Ender Oates on 10-06-2022 MCV (RBC) [Entitic vol] 100.8 fL 81-99 [facility] - Chemistry and C hemistry - challengeOrdered By: Ender Oates on 10-06-2022 ALT [Catalytic activity/Vol] 22 U/L 13-56 [facility] Urea nitrogen/Creatinine [Mass ratio] 24.7 mg/mg 10-20 [facility] ALP [Catalytic activity/Vol] 76 U/L 45-117 [facility] CO2 [Moles/Vol] 23.0 mmol/L 21.0-32.0 [facility] Globulin (S) [Mass/Vol] 4.4 g/dL 2.2-4.2 [facility] - Chemistry and C hemistry - challengeon 10-06-2022 Anion gap [Moles/Vol] 8 mmol/L [facility] AST [Catalytic activity/Vol] 25 U/L 8 - 37 U/L [facility] - Hematology and Cell countsOrdered By: Ender Oates on 10-06-2022 Erythrocyte distribution width (RBC) [Ratio] 14.9 % 11.6-14.6 [facility] Erythrocyte distribution width (RBC) [Entitic vol] 55.8 fL 35.1-43.9 [facility] MCH (RBC) [Entitic mass] 32.5 pg 27.0-32.0 [facility] MCHC Auto (RBC) [Mass/Vol]Or dered By: Ender Oates on 10-06-2022 MCHC (RBC) [Mass/Vol] 32.3 g/dL 32-36 [facility] No Panel Informationon 10-06 Bili Total 0.40 mg/dL 0.2 - 1 mg/dL [facility] No Panel InformationOrdered By: Ender Oates on 10-06-2022 Estimated GFR (MDRD) Amer 91 mL/min >60 [facility] Comment on above: GFR Calc Estimated GFR (MDRD) Non-Af Amer 75 mL/min >60 [facility] Comment on above: Non- GFR Calc Platelets bldOrdered By: Ronaldo Oates on 10-06-2022 Platelets (Bld) [#/Vol] 202 10*3/uL 150-450 [facility] Serum or plasma albumin tammie urement (mass/volume)Ordered By: Ender Oates on 10-06-2022 Albumin [Mass/Vol] 3.5 g/dL 3.2-5.0 [facility] Serum or plasma albumin/glob ulin mass ratioOrdered By: Ender Oates on 10-06-2022 Albumin/Globulin [Mass ratio] 0.8 {ratio} 0.9-2.4 [facility] Serum or plasma calcium tammie urement (mass/volume)Ordered By: Ender Oates on 10-06-2022 Calcium [Mass/Vol] 9.3 mg/dL 8.5-10.1 [facility] Serum or plasma creatinine m easurement (mass/volume)Ordered By: Ender Oates on 10-06-2022 Creatinine [Mass/Vol] 0.81 mg/dL 0.55-1.02 [facility] Comment on above: The validity of the calculated GFR & GFRAA in patients over 70 years has not been determined. Clinical correlation is essential. Serum or plasma urea nitroge n measurement (mass/volume)Ordered By: Ender Oates on 10-06-2022 Urea nitrogen [Mass/Vol] 20 mg/dL 7-18 [facility] Thin prep Papanicolaou smear with manual screeningOrdered By: Ender Oates on 10-06-2022 Thin prep Papanicolaou smear with manual screening 25 U/L 15-37 [facility] Thin prep Papanicolaou smear with manual screening 8 5-15 [facility] Basophil percentageOrdered B y: Ender Oates on 09-08-2022 Bilirubin [Mass/Vol] 0.40 mg/dL 0.20-1.00 [facility] Comment on above: For patients on eltr ombopag therapy, use of Dimension [place] TBIL is not recommended. Chloride [Moles/Vol] 109 mmol/L 98-107 [facility] Glucose [Mass/Vol] 116 mg/dL 74-106 [facility] Comment on above: Fasting Glucose resu lt from 100 to 125 mg/dL suggests IMPAIRED HOMEOSTASIS per A.D.A. criteria. Potassium [Moles/Vol] 3.8 mmol/L 3.5-5.1 [facility] Protein [Mass/Vol] 6.5 g/dL 6.4-8.2 [facility] Sodium [Moles/Vol] 139 mmol/L 136-145 [facility] WBC (Bld) [#/Vol] 8.2 10*3/uL 4.4-11.0 [facility] Blood erythrocytes count (nu mber/volume)Ordered By: Ender Oates on 09-08-2022 RBC (Bld) [#/Vol] 4.45 10*6/uL 4.2-5.[address] [facility] Blood hemoglobin measurement (mass/volume)Ordered By: Ender Oates on 09-08-2022 Hemoglobin (Bld) [Mass/Vol] 14.1 g/dL 12.0-15.0 [facility] Blood platelet mean volumeOr dered By: Ender Oates on 09-08-2022 Platelet mean volume (Bld) [Entitic vol] 10.7 fL 6.2-12.0 [facility] Determination of erythrocyte mean corpuscular volume (MCV)Ordered By: Ender Oates on 09-08-2022 MCV (RBC) [Entitic vol] 102.5 fL 81-99 [facility] Hematocrit Auto (Bld) [Volum e fraction]Ordered By: Ender Oates on 09-08-2022 Hematocrit (Bld) [Volume fraction] 45.6 % 37-47 [facility] - Chemistry and C hemistry - challengeOrdered By: Ender Oates on 09-08-2022 ALP [Catalytic activity/Vol] 61 U/L 45-117 [facility] ALT [Catalytic activity/Vol] 20 U/L 13-56 [facility] CO2 [Moles/Vol] 28.0 mmol/L 21.0-32.0 [facility] Globulin (S) [Mass/Vol] 3.6 g/dL 2.2-4.2 [facility] Urea nitrogen/Creatinine [Mass ratio] 30.3 mg/mg 10-20 [facility] - Hematology and Cell countsOrdered By: Ender Oates on 09-08-2022 Erythrocyte distribution width (RBC) [Entitic vol] 56.0 fL 35.1-43.9 [facility] Erythrocyte distribution width (RBC) [Ratio] 14.7 % 11.6-14.6 [facility] MCH (RBC) [Entitic mass] 31.7 pg 27.0-32.0 [facility] MCHC Auto (RBC) [Mass/Vol]Or dered By: Ender Oates on 09-08-2022 MCHC (RBC) [Mass/Vol] 30.9 g/dL 32-36 [facility] No Panel InformationOrdered By: Ender Oates on 09-08-2022 Estimated GFR (MDRD) Amer 98 mL/min >60 [facility] Comment on above: GFR Calc Estimated GFR (MDRD) Non-Af Amer 81 mL/min >60 [facility] Comment on above: Non- GFR Calc Platelets bldOrdered By: Ronaldo concepcion Gracie on 09-08-2022 Platelets (Bld) [#/Vol] 222 10*3/uL 150-450 [facility] Serum or plasma albumin tammie urement (mass/volume)Ordered By: Ender Oates on 09-08-2022 Albumin [Mass/Vol] 2.9 g/dL 3.2-5.0 [facility] Serum or plasma albumin/glob ulin mass ratioOrdered By: Ender Oates on 09-08-2022 Albumin/Globulin [Mass ratio] 0.8 {ratio} 0.9-2.4 [facility] Serum or plasma calcium tammie urement (mass/volume)Ordered By: Ender Oates on 09-08-2022 Calcium [Mass/Vol] 8.8 mg/dL 8.5-10.1 [facility] Serum or plasma creatinine m easurement (mass/volume)Ordered By: Ender Oates on 09-08-2022 Creatinine [Mass/Vol] 0.76 mg/dL 0.55-1.02 [facility] Comment on above: The validity of the calculated GFR & GFRAA in patients over 70 years has not been determined. Clinical correlation is essential. Serum or plasma urea nitroge n measurement (mass/volume)Ordered By: Ender Oates on 09-08-2022 Urea nitrogen [Mass/Vol] 23 mg/dL 7-18 [facility] Thin prep Papanicolaou smear with manual screeningOrdered By: Ender Oates on 09-08-2022 Thin prep Papanicolaou smear with manual screening 19 U/L 15-37 [facility] Thin prep Papanicolaou smear with manual screening 2 5-15 [facility] Basophil percentageOrdered B y: Ender Oates on 08-28-2022 WBC (Bld) [#/Vol] 7.7 10*3/uL 4.4-11.0 [facility] Blood erythrocytes count (nu mber/volume)Ordered By: Ender Oates on 08-28-2022 RBC (Bld) [#/Vol] 4.27 10*6/uL 4.2-5.[address] [facility] Blood hemoglobin measurement (mass/volume)Ordered By: Ender Oates on 08-28-2022 Hemoglobin (Bld) [Mass/Vol] 13.9 g/dL 12.0-15.0 [facility] Blood platelet mean volumeOr dered By: Ender Oates on 08-28-2022 Platelet mean volume (Bld) [Entitic vol] 11.2 fL 6.2-12.0 [facility] Determination of erythrocyte mean corpuscular volume (MCV)Ordered By: Ender Oates on 08-28-2022 MCV (RBC) [Entitic vol] 101.9 fL 81-99 [facility] Hematocrit Auto (Bld) [Volum e fraction]Ordered By: Ender Oates on 08-28-2022 Hematocrit (Bld) [Volume fraction] 43.5 % 37-47 [facility] - Hematology and Cell countsOrdered By: Ender Oates on 08-28-2022 Erythrocyte distribution width (RBC) [Entitic vol] 55.7 fL 35.1-43.9 [facility] Erythrocyte distribution width (RBC) [Ratio] 14.8 % 11.6-14.6 [facility] MCH (RBC) [Entitic mass] 32.6 pg 27.0-32.0 [facility] MCHC Auto (RBC) [Mass/Vol]Or dered By: Ender Oates on 08-28-2022 MCHC (RBC) [Mass/Vol] 32.0 g/dL 32-36 [facility] Platelets bldOrdered By: Ronaldo Oates on 08-28-2022 Platelets (Bld) [#/Vol] 198 10*3/uL 150-450 [facility] Basophil percentageOrdered B y: Ender Oates on 08-11-2022 Bilirubin [Mass/Vol] 0.40 mg/dL 0.20-1.00 [facility] Comment on above: For patients on eltr ombopag therapy, use of Dimension [place] TBIL is not recommended. Chloride [Moles/Vol] 104 mmol/L 98-107 [facility] Glucose [Mass/Vol] 79 mg/dL 74-106 [facility] Potassium [Moles/Vol] 4.5 mmol/L 3.5-5.1 [facility] Protein [Mass/Vol] 6.9 g/dL 6.4-8.2 [facility] Sodium [Moles/Vol] 138 mmol/L 136-145 [facility] WBC (Bld) [#/Vol] 7.5 10*3/uL 4.4-11.0 [facility] Blood erythrocytes count (nu mber/volume)Ordered By: Ender Oates on 08-11-2022 RBC (Bld) [#/Vol] 4.57 10*6/uL 4.2-5.[address] [facility] Blood hemoglobin measurement (mass/volume)Ordered By: Ender Oates on 08-11-2022 Hemoglobin (Bld) [Mass/Vol] 14.6 g/dL 12.0-15.0 [facility] Blood platelet mean volumeOr dered By: Ender Oates on 08-11-2022 Platelet mean volume (Bld) [Entitic vol] 11.5 fL 6.2-12.0 [facility] Determination of erythrocyte mean corpuscular volume (MCV)Ordered By: Ender Oates on 08-11-2022 MCV (RBC) [Entitic vol] 102.0 fL 81-99 [facility] Hematocrit Auto (Bld) [Volum e fraction]Ordered By: Ender Oates on 08-11-2022 Hematocrit (Bld) [Volume fraction] 46.6 % 37-47 [facility] - Chemistry and C hemistry - challengeOrdered By: Ender Oates on 08-11-2022 ALP [Catalytic activity/Vol] 74 U/L 45-117 [facility] ALT [Catalytic activity/Vol] 18 U/L 13-56 [facility] CO2 [Moles/Vol] 26.0 mmol/L 21.0-32.0 [facility] Globulin (S) [Mass/Vol] 3.8 g/dL 2.2-4.2 [facility] Urea nitrogen/Creatinine [Mass ratio] 34.3 mg/mg 10-20 [facility] - Hematology and Cell countsOrdered By: Ender Oates on 08-11-2022 Erythrocyte distribution width (RBC) [Entitic vol] 55.5 fL 35.1-43.9 [facility] Erythrocyte distribution width (RBC) [Ratio] 14.6 % 11.6-14.6 [facility] MCH (RBC) [Entitic mass] 31.9 pg 27.0-32.0 [facility] MCHC Auto (RBC) [Mass/Vol]Or dered By: Ender Oates on 08-11-2022 MCHC (RBC) [Mass/Vol] 31.3 g/dL 32-36 [facility] No Panel InformationOrdered By: Ender Oates on 08-11-2022 Estimated GFR (MDRD) Amer 77 mL/min >60 [facility] Comment on above: GFR Calc Estimated GFR (MDRD) Non-Af Amer 64 mL/min >60 [facility] Comment on above: Non- GFR Calc Platelets bldOrdered By: Ronaldo Oates on 08-11-2022 Platelets (Bld) [#/Vol] 193 10*3/uL 150-450 [facility] Serum or plasma albumin tammie urement (mass/volume)Ordered By: Ender Oates on 08-11-2022 Albumin [Mass/Vol] 3.1 g/dL 3.2-5.0 [facility] Serum or plasma albumin/glob ulin mass ratioOrdered By: Ender Oates on 08-11-2022 Albumin/Globulin [Mass ratio] 0.8 {ratio} 0.9-2.4 [facility] Serum or plasma calcium tammie urement (mass/volume)Ordered By: Ender Oates on 08-11-2022 Calcium [Mass/Vol] 8.7 mg/dL 8.5-10.1 [facility] Serum or plasma creatinine m easurement (mass/volume)Ordered By: Ender Oates on 08-11-2022 Creatinine [Mass/Vol] 0.93 mg/dL 0.55-1.02 [facility] Comment on above: The validity of the calculated GFR & GFRAA in patients over 70 years has not been determined. Clinical correlation is essential. Serum or plasma urea nitroge n measurement (mass/volume)Ordered By: Ender Oates on 08-11-2022 Urea nitrogen [Mass/Vol] 32 mg/dL 7-18 [facility] Thin prep Papanicolaou smear with manual screeningOrdered By: Ender Oates on 08-11-2022 Thin prep Papanicolaou smear with manual screening 25 U/L 15-37 [facility] Thin prep Papanicolaou smear with manual screening 8 5-15 [facility] Basophil percentageOrdered B y: Ender Oates on 08-08-2022 Cholesterol [Mass/Vol] 142 mg/dL <200 [facility] Comment on above: <200 mg/dL Desirable 200-240 mg/dL Borderline >240 mg/dL High Risk Triglyceride [Mass/Vol] 145 mg/dL <199 [facility] Comment on above: The drugs N-Acetylcy steine and Metamizole may falsely depress this assay.Serum Triglycerides Reference Interval Normal <150 mg/dL Borderline high 150 - 199 mg/dL High 200 - 499 mg/dL Very High > or = 500 mg/dL Serum or plasma cholesterol in HDL measurement (mass/volume)Ordered By: Ender Oates on 08-08-2022 Cholesterol in HDL [Mass/Vol] 60 mg/dL >40 [facility] Comment on above: The drugs N-Acetylcy steine and Metamizole may falsely depress this assay. Reference Range HDL <40 mg/dL Low HDL Cholesterol HDL >or= 60 mg/dL High HDL Cholesterol Serum or plasma cholesterol in VLDL measurement (mass/volume)Ordered By: Ender Oates on 08-08-2022 Cholesterol in VLDL [Mass/Vol] 29 mg/dL 5-40 [facility] Serum or plasma low density lipoprotein (LDL) cholesterol measurement (mass/volume)Ordered By: Ender Oates on 08-08-2022 Cholesterol in LDL [Mass/Vol] 53 mg/dL 0-130 [facility] Basophil percentageOrdered B y: Ender Oates on 07-14-2022 Bilirubin [Mass/Vol] 0.40 mg/dL 0.20-1.00 [facility] Comment on above: For patients on eltr ombopag therapy, use of Dimension [place] TBIL is not recommended. Chloride [Moles/Vol] 109 mmol/L 98-107 [facility] Glucose [Mass/Vol] 90 mg/dL 74-106 [facility] Potassium [Moles/Vol] 4.4 mmol/L 3.5-5.1 [facility] Protein [Mass/Vol] 6.7 g/dL 6.4-8.2 [facility] Sodium [Moles/Vol] 143 mmol/L 136-145 [facility] WBC (Bld) [#/Vol] 7.2 10*3/uL 4.4-11.0 [facility] Blood erythrocytes count (nu mber/volume)Ordered By: Ender Oates on 07-14-2022 RBC (Bld) [#/Vol] 4.48 10*6/uL 4.2-5.[address] [facility] Blood hemoglobin measurement (mass/volume)Ordered By: Ender Oates on 07-14-2022 Hemoglobin (Bld) [Mass/Vol] 14.1 g/dL 12.0-15.0 [facility] Blood platelet mean volumeOr dered By: Ender Oates on 07-14-2022 Platelet mean volume (Bld) [Entitic vol] 11.5 fL 6.2-12.0 [facility] Determination of erythrocyte mean corpuscular volume (MCV)Ordered By: Ender Oates on 07-14-2022 MCV (RBC) [Entitic vol] 102.2 fL 81-99 [facility] Hematocrit Auto (Bld) [Volum e fraction]Ordered By: Ender Oates on 07-14-2022 Hematocrit (Bld) [Volume fraction] 45.8 % 37-47 [facility] - Chemistry and C hemistry - challengeOrdered By: Ender Oates on 07-14-2022 ALP [Catalytic activity/Vol] 84 U/L 45-117 [facility] ALT [Catalytic activity/Vol] 16 U/L 13-56 [facility] CO2 [Moles/Vol] 32.0 mmol/L 21.0-32.0 [facility] Globulin (S) [Mass/Vol] 3.9 g/dL 2.2-4.2 [facility] Urea nitrogen/Creatinine [Mass ratio] 38.6 mg/mg 10-20 [facility] - Hematology and Cell countsOrdered By: Ender Oates on 07-14-2022 Erythrocyte distribution width (RBC) [Entitic vol] 54.3 fL 35.1-43.9 [facility] Erythrocyte distribution width (RBC) [Ratio] 14.5 % 11.6-14.6 [facility] MCH (RBC) [Entitic mass] 31.5 pg 27.0-32.0 [facility] MCHC Auto (RBC) [Mass/Vol]Or dered By: Ender Oates on 07-14-2022 MCHC (RBC) [Mass/Vol] 30.8 g/dL 32-36 [facility] No Panel InformationOrdered By: Ender Oates on 07-14-2022 Estimated GFR (MDRD) Amer 99 mL/min >60 [facility] Comment on above: GFR Calc Estimated GFR (MDRD) Non-Af Amer 82 mL/min >60 [facility] Comment on above: Non- GFR Calc Platelets bldOrdered By: Ronaldo Oates on 07-14-2022 Platelets (Bld) [#/Vol] 186 10*3/uL 150-450 [facility] Serum or plasma albumin tammie urement (mass/volume)Ordered By: Ender Oates on 07-14-2022 Albumin [Mass/Vol] 2.8 g/dL 3.2-5.0 [facility] Serum or plasma albumin/glob ulin mass ratioOrdered By: Ender Oates on 07-14-2022 Albumin/Globulin [Mass ratio] 0.7 {ratio} 0.9-2.4 [facility] Serum or plasma calcium tammie urement (mass/volume)Ordered By: Ender Oates on 07-14-2022 Calcium [Mass/Vol] 8.8 mg/dL 8.5-10.1 [facility] Serum or plasma creatinine m easurement (mass/volume)Ordered By: Ender Oates on 07-14-2022 Creatinine [Mass/Vol] 0.75 mg/dL 0.55-1.02 [facility] Comment on above: The validity of the calculated GFR & GFRAA in patients over 70 years has not been determined. Clinical correlation is essential. Serum or plasma urea nitroge n measurement (mass/volume)Ordered By: Ender Oates on 07-14-2022 Urea nitrogen [Mass/Vol] 29 mg/dL 7-18 [facility] Thin prep Papanicolaou smear with manual screeningOrdered By: Ender Oates on 07-14-2022 Thin prep Papanicolaou smear with manual screening 17 U/L 15-37 [facility] Thin prep Papanicolaou smear with manual screening 2 5-[address] [facility] [address] KNEE WO IVCON LTon 2022 CT KNEE WO IVCON LT * * *Final Report* * * DATE OF EXAM: Jun 12 2022 3:43PM [facility] [place] 0083 - CT KNEE WO IVCON LT [...] abnormality. IMPRESSION: Intact TKA. No acute abnormality. Inspector Salvage: PSCB Transcribe Date/Time: Jun 16 2022 8:28A Dictated by : DEJA LIU MD This examination was interpreted and the report reviewed and electronically signed by: DEJA LIU MD on Jun 16 2022 8:31AM EST [id number] N Normal [facility] Basophil percentageOrdered B y: Ender Oates on 06-09-2022 Bilirubin [Mass/Vol] 0.40 mg/dL 0.20-1.00 [facility] Comment on above: For patients on eltr ombopag therapy, use of Dimension [place] TBIL is not recommended. Chloride [Moles/Vol] 106 mmol/L 98-107 [facility] Glucose [Mass/Vol] 90 mg/dL 74-106 [facility] Potassium [Moles/Vol] 4.1 mmol/L 3.5-5.1 [facility] Protein [Mass/Vol] 6.5 g/dL 6.4-8.2 [facility] Sodium [Moles/Vol] 143 mmol/L 136-145 [facility] WBC (Bld) [#/Vol] 6.4 10*3/uL 4.4-11.0 [facility] Blood erythrocytes count (nu mber/volume)Ordered By: Ender Oates on 06-09-2022 RBC (Bld) [#/Vol] 4.36 10*6/uL 4.2-5.[address] [facility] Blood hemoglobin measurement (mass/volume)Ordered By: Ender Oates on 06-09-2022 Hemoglobin (Bld) [Mass/Vol] 14.4 g/dL 12.0-15.0 [facility] Blood platelet mean volumeOr dered By: Ender Oates on 06-09-2022 Platelet mean volume (Bld) [Entitic vol] 11.1 fL 6.2-12.0 [facility] Determination of erythrocyte mean corpuscular volume (MCV)Ordered By: Ender Oates on 06-09-2022 MCV (RBC) [Entitic vol] 102.3 fL 81-99 [facility] Hematocrit Auto (Bld) [Volum e fraction]Ordered By: Ender Oates on 06-09-2022 Hematocrit (Bld) [Volume fraction] 44.6 % 37-47 [facility] - Chemistry and C hemistry - challengeOrdered By: Ender Oates on 06-09-2022 ALP [Catalytic activity/Vol] 67 U/L 45-117 [facility] ALT [Catalytic activity/Vol] 14 U/L 13-56 [facility] CO2 [Moles/Vol] 29.0 mmol/L 21.0-32.0 [facility] Globulin (S) [Mass/Vol] 3.7 g/dL 2.2-4.2 [facility] Urea nitrogen/Creatinine [Mass ratio] 31.0 mg/mg 10-20 [facility] - Hematology and Cell countsOrdered By: Ender Oates on 06-09-2022 Erythrocyte distribution width (RBC) [Entitic vol] 56.1 fL 35.1-43.9 [facility] Erythrocyte distribution width (RBC) [Ratio] 14.9 % 11.6-14.6 [facility] MCH (RBC) [Entitic mass] 33.0 pg 27.0-32.0 [facility] MCHC Auto (RBC) [Mass/Vol]Or dered By: Ender Oates on 06-09-2022 MCHC (RBC) [Mass/Vol] 32.3 g/dL 32-36 [facility] No Panel InformationOrdered By: Ender Oates on 06-09-2022 Estimated GFR (MDRD) Amer 106 mL/min >60 [facility] Comment on above: GFR Calc Estimated GFR (MDRD) Non-Af Amer 88 mL/min >60 [facility] Comment on above: Non- GFR Calc Platelets bldOrdered By: Ronaldo Oates on 06-09-2022 Platelets (Bld) [#/Vol] 183 10*3/uL 150-450 [facility] Serum or plasma albumin tammie urement (mass/volume)Ordered By: Ender Oates on 06-09-2022 Albumin [Mass/Vol] 2.8 g/dL 3.2-5.0 [facility] Serum or plasma albumin/glob ulin mass ratioOrdered By: Ender Oates on 06-09-2022 Albumin/Globulin [Mass ratio] 0.8 {ratio} 0.9-2.4 [facility] Serum or plasma calcium tammie urement (mass/volume)Ordered By: Ender Oates on 06-09-2022 Calcium [Mass/Vol] 8.6 mg/dL 8.5-10.1 [facility] Serum or plasma creatinine m easurement (mass/volume)Ordered By: Ender Oates on 06-09-2022 Creatinine [Mass/Vol] 0.71 mg/dL 0.55-1.02 [facility] Comment on above: The validity of the calculated GFR & GFRAA in patients over 70 years has not been determined. Clinical correlation is essential. Serum or plasma urea nitroge n measurement (mass/volume)Ordered By: Ender Oates on 06-09-2022 Urea nitrogen [Mass/Vol] 22 mg/dL 7-18 [facility] Thin prep Papanicolaou smear with manual screeningOrdered By: Ender Oates on 06-09-2022 Thin prep Papanicolaou smear with manual screening 13 U/L 15-37 [facility] Thin prep Papanicolaou smear with manual screening 8 5-15 [facility] Basophil percentageOrdered B y: Ender aOtes on 05-22-2022 WBC (Bld) [#/Vol] 7.6 10*3/uL 4.4-11.0 [facility] Blood erythrocytes count (nu mber/volume)Ordered By: Ender Oates on 05-22-2022 RBC (Bld) [#/Vol] 4.63 10*6/uL 4.2-5.[address] [facility] Blood hemoglobin measurement (mass/volume)Ordered By: Ender Oates on 05-22-2022 Hemoglobin (Bld) [Mass/Vol] 14.7 g/dL 12.0-15.0 [facility] Blood platelet mean volumeOr dered By: Ender Oates on 05-22-2022 Platelet mean volume (Bld) [Entitic vol] 11.7 fL 6.2-12.0 [facility] Determination of erythrocyte mean corpuscular volume (MCV)Ordered By: Ender Oates on 05-22-2022 MCV (RBC) [Entitic vol] 102.8 fL 81-99 [facility] Erythrocyte sedimentation ra teOrdered By: Ender Oates on 05-22-2022 ESR (Bld) [Velocity] 7 mm/h 0-30 [facility] Hematocrit Auto (Bld) [Volum e fraction]Ordered By: Ender Oates on 05-22-2022 Hematocrit (Bld) [Volume fraction] 47.6 % 37-47 [facility] - Hematology and Cell countsOrdered By: Ender Oates on 05-22-2022 Erythrocyte distribution width (RBC) [Entitic vol] 57.1 fL 35.1-43.9 [facility] Erythrocyte distribution width (RBC) [Ratio] 14.8 % 11.6-14.6 [facility] MCH (RBC) [Entitic mass] 31.7 pg 27.0-32.0 [facility] MCHC Auto (RBC) [Mass/Vol]Or dered By: Ender Oates on 05-22-2022 MCHC (RBC) [Mass/Vol] 30.9 g/dL 32-36 [facility] Platelets bldOrdered By: Ronaldo Oates on 05-22-2022 Platelets (Bld) [#/Vol] 179 10*3/uL 150-450 [facility] Serum or plasma C reactive p rotein measurement (mass/volume)Ordered By: Ender Oates on 05-22-2022 CRP [Mass/Vol] 4.40 mg/L 0.0-3.0 [facility] Comment on above: C-Reactive Protein ( CRP) provides useful information for thediagnosis, therapy and monitoring of inflammatory processesand associated diseases. For the evaluation of Relative Riskfor Cardiovascular Disease, a High Sensitivity CRP (HSCRP)should be ordered. XR KNEE POST OP 3V AP/LAT/ME RCHANT LEFTon 05-21-2022 [facility] XR Knee AP and Lateral and M erchantson 05-21-2022 IMPRESSION: Left total knee arthroplasty without complication on this single view. Inspector Salvage: PSCB Transcribe Date/Time: May 21 2022 1:32P Dictated by : KATHY KING MD This examination was interpreted and the report reviewed and electronically signed by: ARABELLA ALVARADO MD on May 21 2022 2:24PM [facility] DIVISION OF RADIOLOGY * * *Final [...] swelling, likely postoperative. DIVISION OF RADIOLOGY [facility] * * *Final Report* [...] arthroplasty without complication on this single view. Inspector Salvage: [email or web address] Transcribe Date/Time: May 21 2022 1:32P Dictated by : KATHY KING MD This examination was interpreted and the report reviewed and electronically signed by: ARABELLA ALVARADO MD on May 21 2022 2:24PM EST [facility] Radiology Study observation (narrative) Isidro richards [facility] XR Knee AP and Lateral and M erchantsOrdered By: [facility] Provider on 05-21-2022 [facility] No Panel InformationOrdered By: Ender Oates on 05-15-2022 Vitamin D 25-Hydroxy 36.0 ng/mL [facility] Comment on above: Vitamin D 25(OH) Sta tus Range Deficiency <20 ng/mL (50nmol/L) Insufficiency 20 - 30 ng/mL (50 - 75 nmol/L) Sufficiency 30 - 100 ng/mL (75 - 250 nmol/L) Toxicity >100 ng/mL (>250 nmol/L) Basophil percentageOrdered B y: Ender Oates on 05-10-2022 Bilirubin [Mass/Vol] 0.40 mg/dL 0.20-1.00 [facility] Comment on above: For patients on eltr ombopag therapy, use of Dimension [place] TBIL is not recommended. Chloride [Moles/Vol] 107 mmol/L 98-107 [facility] Glucose [Mass/Vol] 96 mg/dL 74-106 [facility] Potassium [Moles/Vol] 3.9 mmol/L 3.5-5.1 [facility] Protein [Mass/Vol] 6.2 g/dL 6.4-8.2 [facility] Sodium [Moles/Vol] 142 mmol/L 136-145 [facility] WBC (Bld) [#/Vol] 4.3 10*3/uL 4.4-11.0 [facility] Blood erythrocytes count (nu mber/volume)Ordered By: Ender Oates on 05-10-2022 RBC (Bld) [#/Vol] 4.39 10*6/uL 4.2-5.[address] [facility] Blood hemoglobin measurement (mass/volume)Ordered By: Ender Oates on 05-10-2022 Hemoglobin (Bld) [Mass/Vol] 14.3 g/dL 12.0-15.0 [facility] Blood platelet mean volumeOr dered By: Ender Oates on 05-10-2022 Platelet mean volume (Bld) [Entitic vol] 11.5 fL 6.2-12.0 [facility] Determination of erythrocyte mean corpuscular volume (MCV)Ordered By: Ender Oates on 05-10-2022 MCV (RBC) [Entitic vol] 99.8 fL 81-99 [facility] Hematocrit Auto (Bld) [Volum e fraction]Ordered By: Ender Oates on 05-10-2022 Hematocrit (Bld) [Volume fraction] 43.8 % 37-47 [facility] - Chemistry and C hemistry - challengeOrdered By: Ender Oates on 05-10-2022 ALP [Catalytic activity/Vol] 73 U/L 45-117 [facility] ALT [Catalytic activity/Vol] 16 U/L 13-56 [facility] CO2 [Moles/Vol] 30.0 mmol/L 21.0-32.0 [facility] Globulin (S) [Mass/Vol] 3.2 g/dL 2.2-4.2 [facility] Urea nitrogen/Creatinine [Mass ratio] 29.5 mg/mg 10-20 [facility] - Hematology and Cell countsOrdered By: Ender Oates on 05-10-2022 Erythrocyte distribution width (RBC) [Entitic vol] 53.1 fL 35.1-43.9 [facility] Erythrocyte distribution width (RBC) [Ratio] 14.5 % 11.6-14.6 [facility] MCH (RBC) [Entitic mass] 32.6 pg 27.0-32.0 [facility] MCHC Auto (RBC) [Mass/Vol]Or dered By: Ender Oates on 05-10-2022 MCHC (RBC) [Mass/Vol] 32.6 g/dL 32-36 [facility] No Panel InformationOrdered By: Ender Oates on 05-10-2022 Estimated GFR (MDRD) Amer 106 mL/min >60 [facility] Comment on above: GFR Calc Estimated GFR (MDRD) Non-Af Amer 87 mL/min >60 [facility] Comment on above: Non- GFR Calc Valproic Acid (Depakene) Level < 3 ug/mL 50-100 [facility] Platelets bldOrdered By: Ronaldo Oates on 05-10-2022 Platelets (Bld) [#/Vol] 147 10*3/uL 150-450 [facility] Serum or plasma albumin tammie urement (mass/volume)Ordered By: Ender Oates on 05-10-2022 Albumin [Mass/Vol] 3.0 g/dL 3.2-5.0 [facility] Serum or plasma albumin/glob ulin mass ratioOrdered By: Ender Oates on 05-10-2022 Albumin/Globulin [Mass ratio] 0.9 {ratio} 0.9-2.4 [facility] Serum or plasma calcium tammie urement (mass/volume)Ordered By: Ender Oates on 05-10-2022 Calcium [Mass/Vol] 8.4 mg/dL 8.5-10.1 [facility] Serum or plasma creatinine m easurement (mass/volume)Ordered By: Ender Oates on 05-10-2022 Creatinine [Mass/Vol] 0.71 mg/dL 0.55-1.02 [facility] Comment on above: The validity of the calculated GFR & GFRAA in patients over 70 years has not been determined. Clinical correlation is essential. Serum or plasma urea nitroge n measurement (mass/volume)Ordered By: Ender Oates on 05-10-2022 Urea nitrogen [Mass/Vol] 21 mg/dL 7-18 [facility] Thin prep Papanicolaou smear with manual screeningOrdered By: Ender Oates on 05-10-2022 Thin prep Papanicolaou smear with manual screening 18 U/L 15-37 [facility] Thin prep Papanicolaou smear with manual screening 5 5-15 [facility] No Panel InformationOrdered By: Chet Angel on 05-01-2022 Thyroid Stimulating Hormone (TSH) 3.11 uIU/mL 0.358-3.74 [facility] Basophil percentageOrdered B y: Ender Oates on 04-14-2022 Bilirubin [Mass/Vol] 0.30 mg/dL 0.20-1.00 [facility] Comment on above: For patients on eltr ombopag therapy, use of Dimension [place] TBIL is not recommended. Chloride [Moles/Vol] 106 mmol/L 98-107 [facility] Glucose [Mass/Vol] 85 mg/dL 74-106 [facility] Potassium [Moles/Vol] 4.2 mmol/L 3.5-5.1 [facility] Protein [Mass/Vol] 6.6 g/dL 6.4-8.2 [facility] Sodium [Moles/Vol] 141 mmol/L 136-145 [facility] WBC (Bld) [#/Vol] 7.8 10*3/uL 4.4-11.0 [facility] Blood erythrocytes count (nu mber/volume)Ordered By: Ender Oates on 04-14-2022 RBC (Bld) [#/Vol] 4.00 10*6/uL 4.2-5.[address] [facility] Blood hemoglobin measurement (mass/volume)Ordered By: Ender Oates on 04-14-2022 Hemoglobin (Bld) [Mass/Vol] 12.8 g/dL 12.0-15.0 [facility] Blood platelet mean volumeOr dered By: Ender Oates on 04-14-2022 Platelet mean volume (Bld) [Entitic vol] 10.9 fL 6.2-12.0 [facility] Determination of erythrocyte mean corpuscular volume (MCV)Ordered By: Ender Oates on 04-14-2022 MCV (RBC) [Entitic vol] 99.5 fL 81-99 [facility] Hematocrit Auto (Bld) [Volum e fraction]Ordered By: Ender Oates on 04-14-2022 Hematocrit (Bld) [Volume fraction] 39.8 % 37-47 [facility] - Chemistry and C hemistry - challengeOrdered By: Ender Oates on 04-14-2022 ALP [Catalytic activity/Vol] 75 U/L 45-117 [facility] ALT [Catalytic activity/Vol] 18 U/L 13-56 [facility] CO2 [Moles/Vol] 28.0 mmol/L 21.0-32.0 [facility] Globulin (S) [Mass/Vol] 3.9 g/dL 2.2-4.2 [facility] Urea nitrogen/Creatinine [Mass ratio] 36.9 mg/mg 10-20 [facility] - Hematology and Cell countsOrdered By: Ender Oates on 04-14-2022 Erythrocyte distribution width (RBC) [Entitic vol] 52.8 fL 35.1-43.9 [facility] Erythrocyte distribution width (RBC) [Ratio] 14.4 % 11.6-14.6 [facility] MCH (RBC) [Entitic mass] 32.0 pg 27.0-32.0 [facility] MCHC Auto (RBC) [Mass/Vol]Or dered By: Ender Oates on 04-14-2022 MCHC (RBC) [Mass/Vol] 32.2 g/dL 32-36 [facility] No Panel InformationOrdered By: Ender Oates on 04-14-2022 Estimated GFR (MDRD) Amer 117 mL/min >60 [facility] Comment on above: GFR Calc Estimated GFR (MDRD) Non-Af Amer 97 mL/min >60 [facility] Comment on above: Non- GFR Calc Platelets bldOrdered By: Ronaldo Oates on 04-14-2022 Platelets (Bld) [#/Vol] 162 10*3/uL 150-450 [facility] Serum or plasma albumin tammie urement (mass/volume)Ordered By: Ender Oates on 04-14-2022 Albumin [Mass/Vol] 2.7 g/dL 3.2-5.0 [facility] Serum or plasma albumin/glob ulin mass ratioOrdered By: Ender Oates on 04-14-2022 Albumin/Globulin [Mass ratio] 0.7 {ratio} 0.9-2.4 [facility] Serum or plasma calcium tammie urement (mass/volume)Ordered By: Ender Oates on 04-14-2022 Calcium [Mass/Vol] 8.2 mg/dL 8.5-10.1 [facility] Serum or plasma creatinine m easurement (mass/volume)Ordered By: Ender Oates on 04-14-2022 Creatinine [Mass/Vol] 0.65 mg/dL 0.55-1.02 [facility] Comment on above: The validity of the calculated GFR & GFRAA in patients over 70 years has not been determined. Clinical correlation is essential. Serum or plasma urea nitroge n measurement (mass/volume)Ordered By: Ender Oates on 04-14-2022 Urea nitrogen [Mass/Vol] 24 mg/dL -18 [facility] Thin prep Papanicolaou smear with manual screeningOrdered By: Ender Oates on 04-14-2022 Thin prep Papanicolaou smear with manual screening 18 U/L 15-37 [facility] Thin prep Papanicolaou smear with manual screening 7 5-15 [facility] Basophil percentageOrdered B y: Ender Oates on 03-10-2022 Bilirubin [Mass/Vol] 0.40 mg/dL 0.20-1.00 [facility] Comment on above: For patients on eltr ombopag therapy, use of Dimension [place] TBIL is not recommended. Chloride [Moles/Vol] 109 mmol/L 98-107 [facility] Glucose [Mass/Vol] 83 mg/dL 74-106 [facility] Potassium [Moles/Vol] 4.2 mmol/L 3.5-5.1 [facility] Protein [Mass/Vol] 6.9 g/dL 6.4-8.2 [facility] Sodium [Moles/Vol] 143 mmol/L 136-145 [facility] WBC (Bld) [#/Vol] 7.6 10*3/uL 4.4-11.0 [facility] Blood erythrocytes count (nu mber/volume)Ordered By: Ender Oates on 03-10-2022 RBC (Bld) [#/Vol] 4.43 10*6/uL 4.2-5.[address] [facility] Blood hemoglobin measurement (mass/volume)Ordered By: Ender Oates on 03-10-2022 Hemoglobin (Bld) [Mass/Vol] 14.2 g/dL 12.0-15.0 [facility] Blood platelet mean volumeOr dered By: Ender Oates on 03-10-2022 Platelet mean volume (Bld) [Entitic vol] 11.6 fL 6.2-12.0 [facility] Determination of erythrocyte mean corpuscular volume (MCV)Ordered By: Ender Oates on 03-10-2022 MCV (RBC) [Entitic vol] 98.4 fL 81-99 [facility] Hematocrit Auto (Bld) [Volum e fraction]Ordered By: Ender Oates on 03-10-2022 Hematocrit (Bld) [Volume fraction] 43.6 % 37-47 [facility] - Chemistry and C hemistry - challengeOrdered By: Ender Oates on 03-10-2022 ALP [Catalytic activity/Vol] 67 U/L 45-117 [facility] ALT [Catalytic activity/Vol] 20 U/L 13-56 [facility] CO2 [Moles/Vol] 27.0 mmol/L 21.0-32.0 [facility] Globulin (S) [Mass/Vol] 3.9 g/dL 2.2-4.2 [facility] Urea nitrogen/Creatinine [Mass ratio] 39.6 mg/mg 10- [facility] - Hematology and Cell countsOrdered By: Ender Oates on 03-10-2022 Erythrocyte distribution width (RBC) [Entitic vol] 50.4 fL 35.1-43.9 [facility] Erythrocyte distribution width (RBC) [Ratio] 13.8 % 11.6-14.6 [facility] MCH (RBC) [Entitic mass] 32.1 pg 27.0-32.0 [facility] MCHC Auto (RBC) [Mass/Vol]Or dered By: Ender Oates on 03-10-2022 MCHC (RBC) [Mass/Vol] 32.6 g/dL [facility] No Panel InformationOrdered By: Ender Oates on 03-10-2022 Estimated GFR (MDRD) Amer 127 mL/min >60 [facility] Comment on above: GFR Calc Estimated GFR (MDRD) Non-Af Amer 105 mL/min >60 [facility] Comment on above: Non- GFR Calc Platelets bldOrdered By: Ronaldo Oates on 03-10-2022 Platelets (Bld) [#/Vol] 163 10*3/uL 150-450 [facility] Serum or plasma albumin tammie urement (mass/volume)Ordered By: Ender Oates on 03-10-2022 Albumin [Mass/Vol] 3.0 g/dL 3.2-5.0 [facility] Serum or plasma albumin/glob ulin mass ratioOrdered By: Ender Oates on 03-10-2022 Albumin/Globulin [Mass ratio] 0.8 {ratio} 0.9-2.4 [facility] Serum or plasma calcium tammie urement (mass/volume)Ordered By: Ender Oates on 03-10-2022 Calcium [Mass/Vol] 9.0 mg/dL 8.5-10.1 [facility] Serum or plasma creatinine m easurement (mass/volume)Ordered By: Ender Oates on 03-10-2022 Creatinine [Mass/Vol] 0.61 mg/dL 0.55-1.02 [facility] Comment on above: The validity of the calculated GFR & GFRAA in patients over 70 years has not been determined. Clinical correlation is essential. Serum or plasma urea nitroge n measurement (mass/volume)Ordered By: Ender Oates on 03-10-2022 Urea nitrogen [Mass/Vol] 24 mg/dL 7-18 [facility] Thin prep Papanicolaou smear with manual screeningOrdered By: Ender Oates on 03-10-2022 Thin prep Papanicolaou smear with manual screening 15 U/L 15-37 [facility] Thin prep Papanicolaou smear with manual screening 7 5-15 [facility] Basophil percentageon 2021 Bilirubin [Mass/Vol] 0.30 mg/dL 0.20-1.00 [facility] Work Phone: Comment on above: For patients on eltr ombopag therapy, use of Dimension [place] TBIL is not recommended. Chloride [Moles/Vol] 105 mmol/L 98-107 [facility] Work Phone: Cholesterol [Mass/Vol] 114 mg/dL <200 [facility] Work Phone: Comment on above: <200 mg/dL Desirable 200-240 mg/dL Borderline >240 mg/dL High Risk Glucose [Mass/Vol] 79 mg/dL 74-106 [facility] Work Phone: Potassium [Moles/Vol] 4.1 mmol/L 3.5-5.1 [facility] Work Phone: Protein [Mass/Vol] 6.7 g/dL 6.4-8.2 [facility] Work Phone: Sodium [Moles/Vol] 139 mmol/L 136-145 [facility] Work Phone: Triglyceride [Mass/Vol] 94 mg/dL <199 [facility] Work Phone: Comment on above: The drugs N-Acetylcy steine and Metamizole may falsely depress this assay.Serum Triglycerides Reference Interval Normal <150 mg/dL Borderline high 150 - 199 mg/dL High 200 - 499 mg/dL Very High > or = 500 mg/dL WBC (Bld) [#/Vol] 7.5 10*3/uL 4.4-11.0 [facility]: [phone] Blood erythrocytes count (nu mber/volume)on 02-10-2022 RBC (Bld) [#/Vol] 4.45 10*6/uL 4.2-5.4 [facility]: [phone] Blood hemoglobin measurement (mass/volume)on 02-10-2022 Hemoglobin (Bld) [Mass/Vol] 14.7 g/dL 12.0-15.0 [facility] Work Phone: [phone] Blood platelet mean volumeon 02-10-2022 Platelet mean volume (Bld) [Entitic vol] 10.7 fL 6.2-12.0 [facility] Work Phone: [phone] Determination of erythrocyte mean corpuscular volume (MCV)on 02-10-2022 MCV (RBC) [Entitic vol] 100.2 fL 81-99 [facility] Work Phone: [phone] Hematocrit Auto (Bld) [Volum e fraction]on 02-10-2022 Hematocrit (Bld) [Volume fraction] 44.6 % 37-47 [facility] Work Phone: [phone] Laboratory - Chemistry and C hemistry - challengeon 02-10-2022 ALP [Catalytic activity/Vol] 58 U/L 45-117 [facility] Work Phone: [phone] [Catalytic activity/Vol] 18 U/L 13-56 [facility] Work Phone: [phone] CO2 [Moles/Vol] 29.0 mmol/L 21.0-32.0 [facility] Work Phone: [phone] Globulin (S) [Mass/Vol] 3.9 g/dL 2.2-4.2 [facility] Work Phone: [phone] Urea nitrogen/Creatinine [Mass ratio] 40.5 mg/mg 10-20 [facility] Work Phone: [phone] Laboratory - Hematology and Cell countson 02-10-2022 Erythrocyte distribution width (RBC) [Entitic vol] 51.3 fL 35.1-43.9 [facility] Work Phone: Erythrocyte distribution width (RBC) [Ratio] 13.9 % 11.6-14.6 [facility] Work Phone: [phone] MCH (RBC) [Entitic mass] 33.0 pg 27.0-32.0 [facility] Work Phone: MCHC Auto (RBC) [Mass/Vol]on 02-10-2022 MCHC (RBC) [Mass/Vol] 33.0 g/dL 32-36 [facility] Work Phone: No Panel Informationon 02-10 Estimated GFR (MDRD) Amer 137 mL/min >60 [facility] Work Phone: Comment on above: GFR Calc Estimated GFR (MDRD) Non-Af Amer 113 mL/min >60 [facility] Work Phone: Comment on above: Non- GFR Calc Valproic Acid (Depakene) Level 34 ug/mL 50-100 [facility] Work Phone: Platelets bldon 02-10-2022 Platelets (Bld) [#/Vol] 169 10*3/uL 150-450 [facility] Work Phone: Serum or plasma albumin tammie urement (mass/volume)on 02-10-2022 Albumin [Mass/Vol] 2.8 g/dL 3.2-5.0 [facility] Work Phone: [phone] Serum or plasma albumin/glob ulin mass ratioon 02-10-2022 Albumin/Globulin [Mass ratio] 0.7 {ratio} 0.9-2.4 [facility] Work Phone: [phone] Serum or plasma calcium tammie urement (mass/volume)on 02-10-2022 Calcium [Mass/Vol] 8.4 mg/dL 8.5-10.1 [facility] Work Phone: [phone] Serum or plasma cholesterol in HDL measurement (mass/volume)on 02-10-2022 Cholesterol in HDL [Mass/Vol] 50 mg/dL >40 [facility] Work Phone: Comment on above: The drugs N-Acetylcy steine and Metamizole may falsely depress this assay. Reference Range HDL <40 mg/dL Low HDL Cholesterol HDL >or= 60 mg/dL High HDL Cholesterol Serum or plasma cholesterol in VLDL measurement (mass/volume)on 02-10-2022 Cholesterol in VLDL [Mass/Vol] 19 mg/dL 5-40 [facility] Work Phone: [phone] Serum or plasma creatinine m easurement (mass/volume)on 02-10-2022 Creatinine [Mass/Vol] 0.57 mg/dL 0.55-1.02 [facility] Work Phone: Comment on above: The validity of the calculated GFR & GFRAA in patients over 70 years has not been determined. Clinical correlation is essential. Serum or plasma low density lipoprotein (LDL) cholesterol measurement (mass/volume)on 02-10-2022 Cholesterol in LDL [Mass/Vol] 45 mg/dL 0-130 [facility] Work Phone: Serum or plasma urea nitroge n measurement (mass/volume)on 02-10-2022 Urea nitrogen [Mass/Vol] 23 mg/dL 7-18 [facility] Work Phone: Thin prep Papanicolaou smear with manual screeningon 02-10-2022 Thin prep Papanicolaou smear with manual screening 15 U/L 15-37 [facility] Work Phone: [phone] Thin prep Papanicolaou smear with manual screening 5 5-15 [facility] Work Phone: Basophil percentageon 2021 Bilirubin [Mass/Vol] 0.50 mg/dL 0.20-1.00 [facility] Work Phone: Comment on above: For patients on eltr ombopag therapy, use of Dimension [place] TBIL is not recommended. Chloride [Moles/Vol] 105 mmol/L 98-107 [facility] Work Phone: Glucose [Mass/Vol] 83 mg/dL 74-106 [facility] Work Phone: [phone] Potassium [Moles/Vol] 3.9 mmol/L 3.5-5.1 [facility] Work Phone: [phone] Protein [Mass/Vol] 6.5 g/dL 6.4-8.2 [facility] Work [facility]: [phone] Sodium [Moles/Vol] 140 mmol/L 136-145 [facility] Work Phone: [phone] WBC (Bld) [#/Vol] 7.1 10*3/uL 4.4-11.0 [facility] Work Phone: [phone] Blood erythrocytes count (nu mber/volume)on 01-06-2022 RBC (Bld) [#/Vol] 4.36 10*6/uL 4.2-5.4 [facility] Work [facility]: [phone] Blood hemoglobin measurement (mass/volume)on 01-06-2022 Hemoglobin (Bld) [Mass/Vol] 14.0 g/dL 12.0-15.0 [facility] Work Phone: [phone] Blood platelet mean volumeon 01-06-2022 Platelet mean volume (Bld) [Entitic vol] 11.0 fL 6.2-12.0 [facility] Work Phone: [phone] Determination of erythrocyte mean corpuscular volume (MCV)on 01-06-2022 MCV (RBC) [Entitic vol] 99.5 fL 81-99 [facility] Work Phone: [phone] Hematocrit Auto (Bld) [Volum e fraction]on 01-06-2022 Hematocrit (Bld) [Volume fraction] 43.4 % 37-47 [facility] Work Phone: [phone] Laboratory - Chemistry and C hemistry - challengeon 01-06-2022 ALP [Catalytic activity/Vol] 61 U/L 45-117 [facility] Work Phone: [phone] ALT [Catalytic activity/Vol] 18 U/L 13-56 [facility] Work Phone: [phone] CO2 [Moles/Vol] 34.0 mmol/L 21.0-32.0 [facility] Work Phone: Globulin (S) [Mass/Vol] 3.8 g/dL 2.2-4.2 [facility] Work Phone: [phone] Urea nitrogen/Creatinine [Mass ratio] 37.6 mg/mg 10-20 [facility] Work Phone: [phone] Laboratory - Hematology and Cell countson 01-06-2022 Erythrocyte distribution width (RBC) [Entitic vol] 54.3 fL 35.1-43.9 [facility] Work Phone: [phone] Erythrocyte distribution width (RBC) [Ratio] 14.6 % 11.6-14.6 [facility] Work Phone: [phone] MCH (RBC) [Entitic mass] 32.1 pg 27.0-32.0 [facility] Work Phone: [phone] MCHC Auto (RBC) [Mass/Vol]on 01-06-2022 MCHC (RBC) [Mass/Vol] 32.3 g/dL 32-36 [facility] Work Phone: No Panel Informationon 01-06 Estimated GFR (MDRD) Amer 133 mL/min >60 [facility] Work Phone: Comment on above: GFR Calc Estimated GFR (MDRD) Non-Af Amer 110 mL/min >60 [facility] Work Phone: [phone] Comment on above: Non- GFR Calc Platelets bldon 01-06-2022 Platelets (Bld) [#/Vol] 169 10*3/uL 150-450 [facility] Work Phone: [phone] Serum or plasma albumin tammie urement (mass/volume)on 01-06-2022 Albumin [Mass/Vol] 2.7 g/dL 3.2-5.0 [facility] Work Phone: [phone] Serum or plasma albumin/glob ulin mass ratioon 01-06-2022 Albumin/Globulin [Mass ratio] 0.7 {ratio} 0.9-2.4 [facility] Work Phone: Serum or plasma calcium tammie urement (mass/volume)on 01-06-2022 Calcium [Mass/Vol] 8.3 mg/dL 8.5-10.1 [facility] Work Phone: Serum or plasma creatinine m easurement (mass/volume)on 01-06-2022 Creatinine [Mass/Vol] 0.58 mg/dL 0.55-1.02 [facility] Work Phone: Comment on above: The validity of the calculated GFR & GFRAA in patients over 70 years has not been determined. Clinical correlation is essential. Serum or plasma urea nitroge n measurement (mass/volume)on 01-06-2022 Urea nitrogen [Mass/Vol] 22 mg/dL 7-18 [facility] Work Phone: Thin prep Papanicolaou smear with manual screeningon 01-06-2022 Thin prep Papanicolaou smear with manual screening 16 U/L 15-37 [facility] Work Phone: Thin prep Papanicolaou smear with manual screening 1 5-15 [facility] Work Phone: Basophil percentageon 2021 Cholesterol [Mass/Vol] 141 mg/dL <200 [facility] Work Phone: Comment on above: <200 mg/dL Desirable 200-240 mg/dL Borderline >240 mg/dL High Risk Triglyceride [Mass/Vol] 171 mg/dL <199 [facility] Work Phone: Comment on above: The drugs N-Acetylcy steine and Metamizole may falsely depress this assay.Serum Triglycerides Reference Interval Normal <150 mg/dL Borderline high 150 - 199 mg/dL High 200 - 499 mg/dL Very High > or = 500 mg/dL Serum or plasma cholesterol in HDL measurement (mass/volume)on 12-27-2021 Cholesterol in HDL [Mass/Vol] 47 mg/dL >40 [facility] Work Phone: Comment on above: The drugs N-Acetylcy steine and Metamizole may falsely depress this assay. Reference Range HDL <40 mg/dL Low HDL Cholesterol HDL >or= 60 mg/dL High HDL Cholesterol Serum or plasma cholesterol in VLDL measurement (mass/volume)on 12-27-2021 Cholesterol in VLDL [Mass/Vol] 34 mg/dL 5-40 [facility] Work Phone: [phone] Serum or plasma low density lipoprotein (LDL) cholesterol measurement (mass/volume)on 12-27-2021 Cholesterol in LDL [Mass/Vol] 60 mg/dL 0-130 [facility] Work Phone: Basophil percentageon 2021 Bilirubin [Mass/Vol] 0.30 mg/dL 0.20-1.00 [facility] Work Phone: Comment on above: For patients on eltr ombopag therapy, use of Dimension [place] TBIL is not recommended. Chloride [Moles/Vol] 101 mmol/L 98-107 [facility] Work Phone: Glucose [Mass/Vol] 74 mg/dL 74-106 [facility] Work Phone: Potassium [Moles/Vol] 4.6 mmol/L 3.5-5.1 [facility] Work Phone: [phone] Protein [Mass/Vol] 7.9 g/dL 6.4-8.2 [facility] Work Phone: Sodium [Moles/Vol] 139 mmol/L 136-145 [facility] Work Phone: [phone] WBC (Bld) [#/Vol] 7.5 10*3/uL 4.4-11.0 [facility] Work Phone: Blood erythrocytes count (nu mber/volume)on 12-09-2021 RBC (Bld) [#/Vol] 4.80 10*6/uL 4.2-5.[address] [facility] Work Phone: Blood hemoglobin measurement (mass/volume)on 12-09-2021 Hemoglobin (Bld) [Mass/Vol] 15.4 g/dL 12.0-15.0 [facility] Work Phone: Blood platelet mean volumeon 12-09-2021 Platelet mean volume (Bld) [Entitic vol] 11.3 fL 6.2-12.0 [facility] Work Phone: [phone] Determination of erythrocyte mean corpuscular volume (MCV)on 12-09-2021 MCV (RBC) [Entitic vol] 103.1 fL 81-99 [facility] Work Phone: [phone] Hematocrit Auto (Bld) [Volum e fraction]on 12-09-2021 Hematocrit (Bld) [Volume fraction] 49.5 % 37-47 [facility] Work Phone: [phone] Laboratory - Chemistry and C hemistry - challengeon 12-09-2021 ALP [Catalytic activity/Vol] 76 U/L 45-117 [facility] Work Phone: [phone] ALT [Catalytic activity/Vol] 21 U/L 13-56 [facility] Work Phone: [phone] CO2 [Moles/Vol] 28.0 mmol/L 21.0-32.0 [facility] Work Phone: [phone] Globulin (S) [Mass/Vol] 4.5 g/dL 2.2-4.2 [facility] Work Phone: [phone] Urea nitrogen/Creatinine [Mass ratio] 36.1 mg/mg 10-20 [facility] Work Phone: [phone] Laboratory - Hematology and Cell countson 12-09-2021 Erythrocyte distribution width (RBC) [Entitic vol] 57.3 fL 35.1-43.9 [facility] Work Phone: [phone] Erythrocyte distribution width (RBC) [Ratio] 14.9 % 11.6-14.6 [facility] Work Phone: [phone] MCH (RBC) [Entitic mass] 32.1 pg 27.0-32.0 [facility] Work Phone: [phone] MCHC Auto (RBC) [Mass/Vol]on 12-09-2021 MCHC (RBC) [Mass/Vol] 31.1 g/dL 32-36 [facility] Work Phone: [phone] Panel Informationon 12-09 Estimated GFR (MDRD) Amer 109 mL/min >60 [facility] Work Phone: Comment on above: GFR Calc Estimated GFR (MDRD) Non-Af Amer 90 mL/min >60 [facility] Work Phone: [phone] Comment on above: Non- GFR Calc Platelets bldon 12-09-2021 Platelets (Bld) [#/Vol] 189 10*3/uL 150-450 [facility] Work Phone: [phone] Serum or plasma albumin tammie urement (mass/volume)on 12-09-2021 Albumin [Mass/Vol] 3.4 g/dL 3.2-5.0 [facility] Work Phone: [phone] Serum or plasma albumin/glob ulin mass ratioon 12-09-2021 Albumin/Globulin [Mass ratio] 0.8 {ratio} 0.9-2.4 [facility] Work Phone: [phone] Serum or plasma calcium tammie urement (mass/volume)on 12-09-2021 Calcium [Mass/Vol] 9.4 mg/dL 8.5-10.1 [facility] Work Phone: [phone] Serum or plasma creatinine m easurement (mass/volume)on 12-09-2021 Creatinine [Mass/Vol] 0.69 mg/dL 0.55-1.02 [facility] Work Phone: Comment on above: The validity of the calculated GFR & GFRAA in patients over 70 years has not been determined. Clinical correlation is essential. Serum or plasma urea nitroge n measurement (mass/volume)on 12-09-2021 Urea nitrogen [Mass/Vol] 25 mg/dL 7-18 [facility] Work Phone: [phone] Thin prep Papanicolaou smear with manual screeningon 12-09-2021 Thin prep Papanicolaou smear with manual screening 25 U/L 15-37 [facility] Work Phone: [phone] Thin prep Papanicolaou smear with manual screening 10 5-15 [facility] Work Phone: Basophil percentageon 2021 Bilirubin [Mass/Vol] 0.40 mg/dL 0.20-1.00 [facility] Work Phone: [phone] Comment on above: For patients on eltr ombopag therapy, use of Dimension [place] TBIL is not recommended. Chloride [Moles/Vol] 104 mmol/L 98-107 [facility] Work Phone: [phone] Glucose [Mass/Vol] 71 mg/dL 74-106 [facility] Work Phone: [phone] Potassium [Moles/Vol] 4.0 mmol/L 3.5-5.1 [facility] Work Phone: [phone] Protein [Mass/Vol] 6.7 g/dL 6.4-8.2 [facility] Work Phone: [phone] Sodium [Moles/Vol] 137 mmol/L 136-145 [facility] Work Phone: [phone] WBC (Bld) [#/Vol] 6.7 10*3/uL 4.4-11.0 [facility] Work Phone: [phone] Blood erythrocytes count (nu mber/volume)on 11-11-2021 RBC (Bld) [#/Vol] 4.37 10*6/uL 4.2-5.[address] [facility] Work Phone: [phone] Blood hemoglobin measurement (mass/volume)on 11-11-2021 Hemoglobin (Bld) [Mass/Vol] 14.1 g/dL 12.0-15.0 [facility] Work Phone: [phone] Blood platelet mean volumeon 11-11-2021 Platelet mean volume (Bld) [Entitic vol] 10.9 fL 6.2-12.0 [facility] Work Phone: [phone] Determination of erythrocyte mean corpuscular volume (MCV)on 11-11-2021 MCV (RBC) [Entitic vol] 98.2 fL 81-99 [facility] Work Phone: [phone] Hematocrit Auto (Bld) [Volum e fraction]on 11-11-2021 Hematocrit (Bld) [Volume fraction] 42.9 % 37-47 [facility] Work Phone: Laboratory - Chemistry and C hemistry - challengeon 11-11-2021 ALP [Catalytic activity/Vol] 60 U/L 45-117 [facility] Work Phone: ALT [Catalytic activity/Vol] 25 U/L 13-56 [facility] Work Phone: [phone] CO2 [Moles/Vol] 28.0 mmol/L 21.0-32.0 [facility] Work Phone: Globulin (S) [Mass/Vol] 3.9 g/dL 2.2-4.2 [facility] Work Phone: Urea nitrogen/Creatinine [Mass ratio] 43.8 mg/mg 10-20 [facility] Work Phone: Laboratory - Hematology and Cell countson 11-11-2021 Erythrocyte distribution width (RBC) [Entitic vol] 52.9 fL 35.1-43.9 [facility] Work Phone: Erythrocyte distribution width (RBC) [Ratio] 14.7 % 11.6-14.6 [facility] Work Phone: MCH (RBC) [Entitic mass] 32.3 pg 27.0-32.0 [facility] Work Phone: MCHC Auto (RBC) [Mass/Vol]on 11-11-2021 MCHC (RBC) [Mass/Vol] 32.9 g/dL 32-36 [facility] Work Phone: No Panel Informationon 11-11 Estimated GFR (MDRD) Amer 125 mL/min >60 [facility] Work Phone: Comment on above: GFR Calc Estimated GFR (MDRD) Non-Af Amer 103 mL/min >60 [facility] Work Phone: Comment on above: Non- GFR Calc Platelets bldon 11-11-2021 Platelets (Bld) [#/Vol] 189 10*3/uL 150-450 [facility] Work Phone: [phone] Serum or plasma albumin tammie urement (mass/volume)on 11-11-2021 Albumin [Mass/Vol] 2.8 g/dL 3.2-5.0 [facility] Work Phone: [phone] Serum or plasma albumin/glob ulin mass ratioon 11-11-2021 Albumin/Globulin [Mass ratio] 0.7 {ratio} 0.9-2.4 [facility] Work Phone: [phone] Serum or plasma calcium tammie urement (mass/volume)on 11-11-2021 Calcium [Mass/Vol] 8.5 mg/dL 8.5-10.1 [facility] Work Phone: [phone] Serum or plasma creatinine m easurement (mass/volume)on 11-11-2021 Creatinine [Mass/Vol] 0.62 mg/dL 0.55-1.02 [facility] Work Phone: Comment on above: The validity of the calculated GFR & GFRAA in patients over 70 years has not been determined. Clinical correlation is essential. Serum or plasma urea nitroge n measurement (mass/volume)on 11-11-2021 Urea nitrogen [Mass/Vol] 27 mg/dL 7-18 [facility] Work Phone: Thin prep Papanicolaou smear with manual screeningon 11-11-2021 Thin prep Papanicolaou smear with manual screening 26 U/L 15-37 [facility] Work Phone: [phone] Thin prep Papanicolaou smear with manual screening 5 5-15 [facility] Work Phone: [phone] Panel Informationon 11-08 Valproic Acid (Depakene) Level 30 ug/mL 50-100 [facility] Work Phone: Basophil percentageon 2021 Bilirubin [Mass/Vol] 0.40 mg/dL 0.20-1.00 [facility] Work Phone: Comment on above: For patients on eltr ombopag therapy, use of Dimension [place] TBIL is not recommended. Chloride [Moles/Vol] 108 mmol/L 98-107 [facility] Work Phone: [phone] Glucose [Mass/Vol] 100 mg/dL 74-106 [facility] Work Phone: [phone] Comment on above: Fasting Glucose resu lt from 100 to 125 mg/dL suggests IMPAIRED HOMEOSTASIS per A.D.A. criteria. Potassium [Moles/Vol] 4.4 mmol/L 3.5-5.1 [facility] Work Phone: [phone] Protein [Mass/Vol] 7.9 g/dL 6.4-8.2 [facility] Work Phone: [phone] Sodium [Moles/Vol] 139 mmol/L 136-145 [facility] Work Phone: [phone] WBC (Bld) [#/Vol] 9.3 10*3/uL 4.4-11.0 [facility] Work Phone: [phone] Blood erythrocytes count (nu mber/volume)on 10-07-2021 RBC (Bld) [#/Vol] 4.96 10*6/uL 4.2-5.4 [facility] Work [facility]: [phone] Blood hemoglobin measurement (mass/volume)on 10-07-2021 Hemoglobin (Bld) [Mass/Vol] 15.5 g/dL 12.0-15.0 [facility] Work Phone: [phone] Blood platelet mean volumeon 10-07-2021 Platelet mean volume (Bld) [Entitic vol] 11.6 fL 6.2-12.0 [facility] Work Phone: [phone] Determination of erythrocyte mean corpuscular volume (MCV)on 10-07-2021 MCV (RBC) [Entitic vol] 99.6 fL 81-99 [facility] Work Phone: [phone] Hematocrit Auto (Bld) [Volum e fraction]on 10-07-2021 Hematocrit (Bld) [Volume fraction] 49.4 % 37-47 [facility] Work Phone: [phone] Laboratory - Chemistry and C hemistry - challengeon 10-07-2021 ALP [Catalytic activity/Vol] 74 U/L 45-117 [facility] Work Phone: [phone] ALT [Catalytic activity/Vol] 17 U/L 13-56 [facility] Work Phone: [phone] CO2 [Moles/Vol] 27.0 mmol/L 21.0-32.0 [facility] Work Phone: [phone] Globulin (S) [Mass/Vol] 4.7 g/dL 2.2-4.2 [facility] Work Phone: [phone] Urea nitrogen/Creatinine [Mass ratio] 43.1 mg/mg 10-20 [facility] Work Phone: [phone] Laboratory - Hematology and Cell countson 10-07-2021 Erythrocyte distribution width (RBC) [Entitic vol] 52.7 fL 35.1-43.9 [facility] Work Phone: [phone] Erythrocyte distribution width (RBC) [Ratio] 14.4 % 11.6-14.6 [facility] Work Phone: [phone] MCH (RBC) [Entitic mass] 31.3 pg 27.0-32.0 [facility] Work Phone: [phone] MCHC Auto (RBC) [Mass/Vol]on 10-07-2021 MCHC (RBC) [Mass/Vol] 31.4 g/dL 32-36 [facility] Work Phone: [phone] Panel Informationon 10-07 Estimated GFR (MDRD) Amer 101 mL/min >60 [facility] Work Phone: [phone] Comment on above: GFR Calc Estimated GFR (MDRD) Non-Af Amer 83 mL/min >60 [facility] Work Phone: [phone] Comment on above: Non- GFR Calc Platelets bldon 10-07-2021 Platelets (Bld) [#/Vol] 220 10*3/uL 150-450 [facility] Work Phone: [phone] Serum or plasma albumin tammie urement (mass/volume)on 10-07-2021 Albumin [Mass/Vol] 3.2 g/dL 3.2-5.0 [facility] Work Phone: [phone] Serum or plasma albumin/glob ulin mass ratioon 10-07-2021 Albumin/Globulin [Mass ratio] 0.7 {ratio} 0.9-2.4 [facility] Work Phone: [phone] Serum or plasma calcium tammie urement (mass/volume)on 10-07-2021 Calcium [Mass/Vol] 9.0 mg/dL 8.5-10.1 [facility] Work Phone: [phone] Serum or plasma creatinine m easurement (mass/volume)on 10-07-2021 Creatinine [Mass/Vol] 0.74 mg/dL 0.55-1.02 [facility] Work Phone: Comment on above: The validity of the calculated GFR & GFRAA in patients over 70 years has not been determined. Clinical correlation is essential. Serum or plasma urea nitroge n measurement (mass/volume)on 10-07-2021 Urea nitrogen [Mass/Vol] 32 mg/dL 7-18 [facility] Work Phone: Thin prep Papanicolaou smear with manual screeningon 10-07-2021 Thin prep Papanicolaou smear with manual screening 16 U/L 15-37 [facility] Work Phone: Thin prep Papanicolaou smear with manual screening 4 5-15 [facility] Work Phone: Basophil percentageon 2021 Bilirubin [Mass/Vol] 0.50 mg/dL 0.20-1.00 [facility] Work Phone: Comment on above: For patients on eltr ombopag therapy, use of Dimension [place] TBIL is not recommended. Chloride [Moles/Vol] 103 mmol/L 98-107 [facility] Work Phone: Glucose [Mass/Vol] 93 mg/dL 74-106 [facility] Work Phone: [phone] Potassium [Moles/Vol] 4.4 mmol/L 3.5-5.1 [facility] Work Phone: [phone] Comment on above: Slight Hemolysis, Re sult may be falsely increased. Protein [Mass/Vol] 7.7 g/dL 6.4-8.2 [facility] Work Phone: [phone] Sodium [Moles/Vol] 137 mmol/L 136-145 [facility] Work Phone: [phone] WBC (Bld) [#/Vol] 8.4 10*3/uL 4.4-11.0 [facility] Work Phone: [phone] Blood erythrocytes count (nu mber/volume)on 09-09-2021 RBC (Bld) [#/Vol] 4.68 10*6/uL 4.2-5.[address] [facility] Work Phone: [phone] Blood hemoglobin measurement (mass/volume)on 09-09-2021 Hemoglobin (Bld) [Mass/Vol] 14.4 g/dL 12.0-15.0 [facility] Work Phone: [phone] Blood platelet mean volumeon 09-09-2021 Platelet mean volume (Bld) [Entitic vol] 11.3 fL 6.2-12.0 [facility] Work Phone: [phone] Determination of erythrocyte mean corpuscular volume (MCV)on 09-09-2021 MCV (RBC) [Entitic vol] 96.6 fL 81-99 [facility] Work Phone: [phone] Hematocrit Auto (Bld) [Volum e fraction]on 09-09-2021 Hematocrit (Bld) [Volume fraction] 45.2 % 37-47 [facility] Work Phone: [phone] Laboratory - Chemistry and C hemistry - challengeon 09-09-2021 ALP [Catalytic activity/Vol] 75 U/L 45-117 [facility] Work Phone: [phone] ALT [Catalytic activity/Vol] 22 U/L 13-56 [facility] Work Phone: [phone] CO2 [Moles/Vol] 28.0 mmol/L 21.0-32.0 [facility] Work Phone: [phone] Globulin (S) [Mass/Vol] 4.4 g/dL 2.2-4.2 [facility] Work Phone: [phone] Urea nitrogen/Creatinine [Mass ratio] 39.4 mg/mg 10-20 [facility] Work Phone: [phone] Laboratory - Hematology and Cell countson 09-09-2021 Erythrocyte distribution width (RBC) [Entitic vol] 51.3 fL 35.1-43.9 [facility] Work Phone: [phone] Erythrocyte distribution width (RBC) [Ratio] 14.4 % 11.6-14.6 [facility] Work Phone: [phone] MCH (RBC) [Entitic mass] 30.8 pg 27.0-32.0 [facility] Work Phone: [phone] MCHC Auto (RBC) [Mass/Vol]on 09-09-2021 MCHC (RBC) [Mass/Vol] 31.9 g/dL 32-36 [facility] Work Phone: [phone] Panel Informationon 09-09 Estimated GFR (MDRD) Amer 102 mL/min >60 [facility] Work Phone: [phone] Comment on above: GFR Calc Estimated GFR (MDRD) Non-Af Amer 84 mL/min >60 [facility] Work Phone: [phone] Comment on above: Non- GFR Calc Platelets bldon 09-09-2021 Platelets (Bld) [#/Vol] 215 10*3/uL 150-450 [facility] Work Phone: [phone] Serum or plasma albumin tammie urement (mass/volume)on 09-09-2021 Albumin [Mass/Vol] 3.3 g/dL 3.2-5.0 [facility] Work Phone: [phone] Serum or plasma albumin/glob ulin mass ratioon 09-09-2021 Albumin/Globulin [Mass ratio] 0.8 {ratio} 0.9-2.4 [facility] Work Phone: [phone] Serum or plasma calcium tammie urement (mass/volume)on 09-09-2021 Calcium [Mass/Vol] 8.4 mg/dL 8.5-10.1 [facility] Work Phone: [phone] Serum or plasma creatinine m easurement (mass/volume)on 09-09-2021 Creatinine [Mass/Vol] 0.74 mg/dL 0.55-1.02 [facility] Work Phone: Comment on above: The validity of the calculated GFR & GFRAA in patients over 70 years has not been determined. Clinical correlation is essential. Serum or plasma urea nitroge n measurement (mass/volume)on 09-09-2021 Urea nitrogen [Mass/Vol] 29 mg/dL 7-18 [facility] Work Phone: [phone] Thin prep Papanicolaou smear with manual screeningon 09-09-2021 Thin prep Papanicolaou smear with manual screening 21 U/L 15-37 [facility] Work Phone: Comment on above: Slight Hemolysis, Re sult may be falsely increased. Thin prep Papanicolaou smear with manual screening 6 5-15 [facility] Work Phone: Basophil percentageon 2021 Bilirubin [Mass/Vol] 0.30 mg/dL 0.20-1.00 [facility] Work Phone: Comment on above: For patients on eltr ombopag therapy, use of Dimension [place] TBIL is not recommended. Chloride [Moles/Vol] 103 mmol/L 98-107 [facility] Work Phone: [phone] Cholesterol [Mass/Vol] 149 mg/dL <200 [facility] Work Phone: Comment on above: <200 mg/dL Desirable 200-240 mg/dL Borderline >240 mg/dL High Risk Glucose [Mass/Vol] 110 mg/dL 74-106 [facility] Work Phone: Comment on above: Fasting Glucose resu lt from 100 to 125 mg/dL suggests IMPAIRED HOMEOSTASIS per A.D.A. criteria. Potassium [Moles/Vol] 4.3 mmol/L 3.5-5.1 [facility] Work Phone: Protein [Mass/Vol] 7.2 g/dL 6.4-8.2 [facility] Work Phone: [phone] Sodium [Moles/Vol] 138 mmol/L 136-145 [facility] Work Phone: [phone] Triglyceride [Mass/Vol] 107 mg/dL <199 [facility] Work Phone: [phone] Comment on above: The drugs N-Acetylcy steine and Metamizole may falsely depress this assay.Serum Triglycerides Reference Interval Normal <150 mg/dL Borderline high 150 - 199 mg/dL High 200 - 499 mg/dL Very High > or = 500 mg/dL WBC (Bld) [#/Vol] 7.9 10*3/uL 4.4-11.0 [facility] Work Phone: [phone] Blood erythrocytes count (nu mber/volume)on 08-08-2021 RBC (Bld) [#/Vol] 4.45 10*6/uL 4.2-5.[address] [facility] Work Phone: [phone] Blood hemoglobin measurement (mass/volume)on 08-08-2021 Hemoglobin (Bld) [Mass/Vol] 14.1 g/dL 12.0-15.0 [facility] Work Phone: [phone] Blood platelet mean volumeon 08-08-2021 Platelet mean volume (Bld) [Entitic vol] 11.2 fL 6.2-12.0 [facility] Work Phone: [phone] Determination of erythrocyte mean corpuscular volume (MCV)on 08-08-2021 MCV (RBC) [Entitic vol] 97.5 fL 81-99 [facility] Work Phone: [phone] Hematocrit Auto (Bld) [Volum e fraction]on 08-08-2021 Hematocrit (Bld) [Volume fraction] 43.4 % 37-47 [facility] Work Phone: [phone] Laboratory - Chemistry and C hemistry - challengeon 08-08-2021 ALP [Catalytic activity/Vol] 77 U/L 45-117 [facility] Work Phone: [phone] ALT [Catalytic activity/Vol] 17 U/L 13-56 [facility] Work Phone: [phone] CO2 [Moles/Vol] 31.0 mmol/L 21.0-32.0 [facility] Work Phone: [phone] Globulin (S) [Mass/Vol] 4.1 g/dL 2.2-4.2 [facility] Work Phone: [phone] Urea nitrogen/Creatinine [Mass ratio] 34.6 mg/mg 10-20 [facility] Work Phone: [phone] Laboratory - Hematology and Cell countson 08-08-2021 Erythrocyte distribution width (RBC) [Entitic vol] 51.3 fL 35.1-43.9 [facility] Work Phone: [phone] Erythrocyte distribution width (RBC) [Ratio] 14.3 % 11.6-14.6 [facility] Work Phone: [phone] MCH (RBC) [Entitic mass] 31.7 pg 27.0-32.0 [facility] Work Phone: [phone] MCHC Auto (RBC) [Mass/Vol]on 08-08-2021 MCHC (RBC) [Mass/Vol] 32.5 g/dL 32-36 [facility] Work Phone: No Panel Informationon 08-08 Estimated GFR (MDRD) Amer 109 mL/min >60 [facility] Work Phone: [phone] Comment on above: GFR Calc Estimated GFR (MDRD) Non-Af Amer 90 mL/min >60 [facility] Work Phone: [phone] Comment on above: Non- GFR Calc Valproic Acid (Depakene) Level 36 ug/mL 50-100 [facility] Work Phone: Platelets bldon 08-08-2021 Platelets (Bld) [#/Vol] 203 10*3/uL 150-450 [facility] Work Phone: [phone] Serum or plasma albumin tammie urement (mass/volume)on 08-08-2021 Albumin [Mass/Vol] 3.1 g/dL 3.2-5.0 [facility] Work Phone: Serum or plasma albumin/glob ulin mass ratioon 08-08-2021 Albumin/Globulin [Mass ratio] 0.8 {ratio} 0.9-2.4 [facility] Work Phone: Serum or plasma calcium tammie urement (mass/volume)on 08-08-2021 Calcium [Mass/Vol] 8.4 mg/dL 8.5-10.1 [facility] Work Phone: Serum or plasma cholesterol in HDL measurement (mass/volume)on 08-08-2021 Cholesterol in HDL [Mass/Vol] 55 mg/dL >40 [facility] Work Phone: Comment on above: The drugs N-Acetylcy steine and Metamizole may falsely depress this assay. Reference Range HDL <40 mg/dL Low HDL Cholesterol HDL >or= 60 mg/dL High HDL Cholesterol Serum or plasma cholesterol in VLDL measurement (mass/volume)on 08-08-2021 Cholesterol in VLDL [Mass/Vol] 21 mg/dL 5-40 [facility] Work Phone: Serum or plasma creatinine m easurement (mass/volume)on 08-08-2021 Creatinine [Mass/Vol] 0.69 mg/dL 0.55-1.02 [facility] Work Phone: Comment on above: The validity of the calculated GFR & GFRAA in patients over 70 years has not been determined. Clinical correlation is essential. Serum or plasma low density lipoprotein (LDL) cholesterol measurement (mass/volume)on 08-08-2021 Cholesterol in LDL [Mass/Vol] 73 mg/dL 0-130 [facility] Work Phone: Serum or plasma urea nitroge n measurement (mass/volume)on 08-08-2021 Urea nitrogen [Mass/Vol] 24 mg/dL 7-18 [facility] Work Phone: Thin prep Papanicolaou smear with manual screeningon 08-08-2021 Thin prep Papanicolaou smear with manual screening 13 U/L 15-37 [facility] Work Phone: Thin prep Papanicolaou smear with manual screening 4 5-15 [facility] Work Phone: Absolute lymphocyte counton 07-23-2021 Lymphocytes Auto (Unsp spec) [#/Vol] 2.91 10*3/uL 0.83-4.51 [facility] Work Phone: Basophil percentageon 2021 Basophils/100 WBC (Bld) 1.1 % 0-1 [facility] Work Phone: Bilirubin [Mass/Vol] 0.30 mg/dL 0.20-1.00 [facility] Work Phone: Comment on above: For patients on eltr ombopag therapy, use of Dimension [place] TBIL is not recommended. Chloride [Moles/Vol] 105 mmol/L 98-107 [facility] Work Phone: Eosinophils/100 WBC (Bld) 2.8 % 0-5 [facility] Work Phone: Glucose [Mass/Vol] 78 mg/dL 74-106 [facility] Work Phone: Neutrophils (Bld) [#/Vol] 4.1 10*3/uL 2.0-7.7 [facility] Work Phone: Neutrophils/100 WBC (Bld) 50.5 % 47-70 [facility] Work Phone: Potassium [Moles/Vol] 4.3 mmol/L 3.5-5.1 [facility] Work Phone: Protein [Mass/Vol] 7.0 g/dL 6.4-8.2 [facility] Work Phone: Sodium [Moles/Vol] 139 mmol/L 136-145 [facility] Work Phone: WBC (Bld) [#/Vol] 8.1 10*3/uL 4.4-11.0 [facility] Work Phone: Blood erythrocytes count (nu mber/volume)on 07-23-2021 RBC (Bld) [#/Vol] 4.28 10*6/uL 4.2-5.[address] [facility] Work Phone: Blood hemoglobin measurement (mass/volume)on 07-23-2021 Hemoglobin (Bld) [Mass/Vol] 13.5 g/dL 12.0-15.0 [facility] Work Phone: Blood lymphocytes/100 leukoc yteson 07-23-2021 Lymphocytes/100 WBC (Bld) 35.9 % 19-41 [facility] Work Phone: Blood monocytes/100 leukocyt eson 07-23-2021 Monocytes/100 WBC (Bld) 9.5 % 0-10 [facility] Work Phone: Blood platelet mean volumeon 07-23-2021 Platelet mean volume (Bld) [Entitic vol] 11.2 fL 6.2-12.0 [facility] Work Phone: Determination of erythrocyte mean corpuscular volume (MCV)on 07-23-2021 MCV (RBC) [Entitic vol] 95.6 fL 81-99 [facility] Work Phone: Erythrocyte sedimentation ra wade 07-23-2021 ESR (Bld) [Velocity] 7 mm/h 0-30 [facility] Work Phone: [phone] Hematocrit Auto (Bld) [Volum e fraction]on 07-23-2021 Hematocrit (Bld) [Volume fraction] 40.9 % 37-47 [facility] Work Phone: Laboratory - Chemistry and C hemistry - challengeon 07-23-2021 ALP [Catalytic activity/Vol] 68 U/L 45-117 [facility] Work Phone: ALT [Catalytic activity/Vol] 20 U/L 13-56 [facility] Work Phone: [phone] CO2 [Moles/Vol] 28.0 mmol/L 21.0-32.0 [facility] Work Phone: Globulin (S) [Mass/Vol] 4.1 g/dL 2.2-4.2 [facility] Work Phone: [phone] Urea nitrogen/Creatinine [Mass ratio] 43.6 mg/mg 10-20 [facility] Work Phone: [phone] Laboratory - Hematology and Cell countson 07-23-2021 Erythrocyte distribution width (RBC) [Entitic vol] 49.9 fL 35.1-43.9 [facility] Work Phone: [phone] Erythrocyte distribution width (RBC) [Ratio] 14.2 % 11.6-14.6 [facility] Work Phone: [phone] Immature granulocytes/100 WBC (Bld) 0.200 % 0.0-0.9 [facility] Work Phone: [phone] Comment on above: IG% - Immature Granu locytes (promyelocytes, myelocytes and metamyelocytes) > 1% indicates that a LEFT SHIFT is Present. MCH (RBC) [Entitic mass] 31.5 pg 27.0-32.0 [facility] Work Phone: [phone] Nucleated RBC/100 WBC (Bld) [Ratio] 0 % 0-5 [facility] Work Phone: [phone] MCHC Auto (RBC) [Mass/Vol]on 07-23-2021 MCHC (RBC) [Mass/Vol] 33.0 g/dL 32-36 [facility] Work Phone: No Panel Informationon 07-23 Estimated GFR (MDRD) Amer 119 mL/min >60 [facility] Work Phone: [phone] Comment on above: GFR Calc Estimated GFR (MDRD) Non-Af Amer 99 mL/min >60 [facility] Work Phone: [phone] Comment on above: Non- GFR Calc Platelets bldon 07-23-2021 Platelets (Bld) [#/Vol] 200 10*3/uL 150-450 [facility] Work Phone: [phone] Serum or plasma C reactive p rotein measurement (mass/volume)on 07-23-2021 CRP [Mass/Vol] 3.68 mg/L 0.0-3.0 [facility] Work Phone: Comment on above: C-Reactive Protein ( CRP) provides useful information for thediagnosis, therapy and monitoring of inflammatory processesand associated diseases. For the evaluation of Relative Riskfor Cardiovascular Disease, a High Sensitivity CRP (HSCRP)should be ordered. Serum or plasma albumin tammie urement (mass/volume)on 07-23-2021 Albumin [Mass/Vol] 2.9 g/dL 3.2-5.0 [facility] Work Phone: Serum or plasma albumin/glob ulin mass ratioon 07-23-2021 Albumin/Globulin [Mass ratio] 0.7 {ratio} 0.9-2.4 [facility] Work Phone: [phone] Serum or plasma calcium tammie urement (mass/volume)on 07-23-2021 Calcium [Mass/Vol] 8.5 mg/dL 8.5-10.1 [facility] Work Phone: Serum or plasma creatinine m easurement (mass/volume)on 07-23-2021 Creatinine [Mass/Vol] 0.64 mg/dL 0.55-1.02 [facility] Work Phone: Comment on above: The validity of the calculated GFR & GFRAA in patients over 70 years has not been determined. Clinical correlation is essential. Serum or plasma urea nitroge n measurement (mass/volume)on 07-23-2021 Urea nitrogen [Mass/Vol] 28 mg/dL 7-18 [facility] Work Phone: [phone] Thin prep Papanicolaou smear with manual screeningon 07-23-2021 Thin prep Papanicolaou smear with manual screening 19 U/L 15-37 [facility] Work Phone: [phone] Thin prep Papanicolaou smear with manual screening 6 5-15 [facility] Work Phone: [phone] Absolute lymphocyte counton 07-16-2021 Lymphocytes Auto (Unsp spec) [#/Vol] 2.58 10*3/uL 0.83-4.51 [facility] Work Phone: Basophil percentageon 2021 Basophils/100 WBC (Bld) 1.1 % 0-1 [facility] Work Phone: Bilirubin [Mass/Vol] 0.30 mg/dL 0.20-1.00 [facility] Work Phone: Comment on above: For patients on eltr ombopag therapy, use of Dimension [place] TBIL is not recommended. Chloride [Moles/Vol] 103 mmol/L 98-107 [facility] Work Phone: Eosinophils/100 WBC (Bld) 3.0 % 0-5 [facility] Work Phone: Glucose [Mass/Vol] 74 mg/dL 74-106 [facility] Work Phone: Neutrophils (Bld) [#/Vol] 3.9 10*3/uL 2.0-7.7 [facility] Work Phone: Neutrophils/100 WBC (Bld) 51.3 % 47-70 [facility] Work Phone: Potassium [Moles/Vol] 4.5 mmol/L 3.5-5.1 [facility] Work Phone: Comment on above: Slight Hemolysis, Re sult may be falsely increased. Protein [Mass/Vol] 6.8 g/dL 6.4-8.2 [facility] Work Phone: Sodium [Moles/Vol] 134 mmol/L 136-145 [facility] Work Phone: WBC (Bld) [#/Vol] 7.6 10*3/uL 4.4-11.0 [facility] Work Phone: Blood erythrocytes count (nu mber/volume)on 07-16-2021 RBC (Bld) [#/Vol] 4.21 10*6/uL 4.2-5.[address] [facility] Work Phone: Blood hemoglobin measurement (mass/volume)on 07-16-2021 Hemoglobin (Bld) [Mass/Vol] 13.2 g/dL 12.0-15.0 [facility] Work Phone: Blood lymphocytes/100 leukoc yteson 07-16-2021 Lymphocytes/100 WBC (Bld) 33.9 % 19-41 [facility] Work Phone: Blood monocytes/100 leukocyt eson 07-16-2021 Monocytes/100 WBC (Bld) 10.4 % 0-10 [facility] Work Phone: Blood platelet mean volumeon 07-16-2021 Platelet mean volume (Bld) [Entitic vol] 11.3 fL 6.2-12.0 [facility] Work Phone: Determination of erythrocyte mean corpuscular volume (MCV)on 07-16-2021 MCV (RBC) [Entitic vol] 97.1 fL 81-99 [facility] Work Phone: Erythrocyte sedimentation ra wade 07-16-2021 ESR (Bld) [Velocity] 9 mm/h 0-30 [facility] Work Phone: Hematocrit Auto (Bld) [Volum e fraction]on 07-16-2021 Hematocrit (Bld) [Volume fraction] 40.9 % 37-47 [facility] Work Phone: Laboratory - Chemistry and C hemistry - challengeon 07-16-2021 ALP [Catalytic activity/Vol] 69 U/L 45-117 [facility] Work Phone: ALT [Catalytic activity/Vol] 24 U/L 13-56 [facility] Work Phone: CO2 [Moles/Vol] 27.0 mmol/L 21.0-32.0 [facility] Work Phone: Globulin (S) [Mass/Vol] 4.0 g/dL 2.2-4.2 [facility] Work Phone: Urea nitrogen/Creatinine [Mass ratio] 38.3 mg/mg 10-20 [facility] Work Phone: Laboratory - Hematology and Cell countson 07-16-2021 Erythrocyte distribution width (RBC) [Entitic vol] 50.8 fL 35.1-43.9 [facility] Work Phone: [phone] Erythrocyte distribution width (RBC) [Ratio] 14.2 % 11.6-14.6 [facility] Work Phone: [phone] Immature granulocytes/100 WBC (Bld) 0.300 % 0.0-0.9 [facility] Work Phone: [phone] Comment on above: IG% - Immature Granu locytes (promyelocytes, myelocytes and metamyelocytes) > 1% indicates that a LEFT SHIFT is Present. MCH (RBC) [Entitic mass] 31.4 pg 27.0-32.0 [facility] Work Phone: [phone] Nucleated RBC/100 WBC (Bld) [Ratio] 0 % 0-5 [facility] Work Phone: [phone] MCHC Auto (RBC) [Mass/Vol]on 07-16-2021 MCHC (RBC) [Mass/Vol] 32.3 g/dL 32-36 [facility] Work Phone: No Panel Informationon 07-16 Estimated GFR (MDRD) Amer 123 mL/min >60 [facility] Work Phone: [phone] Comment on above: GFR Calc Estimated GFR (MDRD) Non-Af Amer 101 mL/min >60 [facility] Work Phone: [phone] Comment on above: Non- GFR Calc Platelets bldon 07-16-2021 Platelets (Bld) [#/Vol] 193 10*3/uL 150-450 [facility] Work Phone: [phone] Serum or plasma C reactive p rotein measurement (mass/volume)on 07-16-2021 CRP [Mass/Vol] 3.15 mg/L 0.0-3.0 [facility] Work Phone: [phone] Comment on above: C-Reactive Protein ( CRP) provides useful information for thediagnosis, therapy and monitoring of inflammatory processesand associated diseases. For the evaluation of Relative Riskfor Cardiovascular Disease, a High Sensitivity CRP (HSCRP)should be ordered. Serum or plasma albumin tammie urement (mass/volume)on 07-16-2021 Albumin [Mass/Vol] 2.8 g/dL 3.2-5.0 [facility] Work Phone: [phone] Serum or plasma albumin/glob ulin mass ratioon 07-16-2021 Albumin/Globulin [Mass ratio] 0.7 {ratio} 0.9-2.4 [facility] Work Phone: [phone] Serum or plasma calcium tammie urement (mass/volume)on 07-16-2021 Calcium [Mass/Vol] 8.8 mg/dL 8.5-10.1 [facility] Work Phone: [phone] Serum or plasma creatinine m easurement (mass/volume)on 07-16-2021 Creatinine [Mass/Vol] 0.63 mg/dL 0.55-1.02 [facility] Work Phone: Comment on above: The validity of the calculated GFR & GFRAA in patients over 70 years has not been determined. Clinical correlation is essential. Serum or plasma urea nitroge n measurement (mass/volume)on 07-16-2021 Urea nitrogen [Mass/Vol] 24 mg/dL 7-18 [facility] Work Phone: [phone] Thin prep Papanicolaou smear with manual screeningon 07-16-2021 Thin prep Papanicolaou smear with manual screening 26 U/L 15-37 [facility] Work Phone: Comment on above: Slight Hemolysis, Re sult may be falsely increased. Thin prep Papanicolaou smear with manual screening 4 5-15 [facility] Work Phone: [phone] Absolute lymphocyte counton 07-09-2021 Lymphocytes Auto (Unsp spec) [#/Vol] 2.60 10*3/uL 0.83-4.51 [facility] Work Phone: [phone] Basophil percentageon 2021 Basophils/100 WBC (Bld) 1.1 % 0-1 [facility] Work Phone: [phone] Bilirubin [Mass/Vol] 0.30 mg/dL 0.20-1.00 [facility] Work Phone: Comment on above: For patients on eltr ombopag therapy, use of Dimension [place] TBIL is not recommended. Chloride [Moles/Vol] 103 mmol/L 98-107 [facility] Work Phone: Eosinophils/100 WBC (Bld) 2.7 % 0-5 [facility] Work Phone: Glucose [Mass/Vol] 78 mg/dL 74-106 [facility] Work Phone: Neutrophils (Bld) [#/Vol] 3.7 10*3/uL 2.0-7.7 [facility] Work Phone: Neutrophils/100 WBC (Bld) 49.9 % 47-70 [facility] Work Phone: Potassium [Moles/Vol] 4.3 mmol/L 3.5-5.1 [facility] Work Phone: Protein [Mass/Vol] 6.9 g/dL 6.4-8.2 [facility] Work Phone: Sodium [Moles/Vol] 138 mmol/L 136-145 [facility] Work Phone: WBC (Bld) [#/Vol] 7.4 10*3/uL 4.4-11.0 [facility] Work Phone: Blood erythrocytes count (nu mber/volume)on 07-09-2021 RBC (Bld) [#/Vol] 4.12 10*6/uL 4.2-5.[address] [facility] Work Phone: Blood hemoglobin measurement (mass/volume)on 07-09-2021 Hemoglobin (Bld) [Mass/Vol] 13.3 g/dL 12.0-15.0 [facility] Work Phone: Blood lymphocytes/100 leukoc yteson 07-09-2021 Lymphocytes/100 WBC (Bld) 35.0 % 19-41 [facility] Work Phone: Blood monocytes/100 leukocyt eson 07-09-2021 Monocytes/100 WBC (Bld) 10.9 % 0-10 [facility] Work Phone: Blood platelet mean volumeon 07-09-2021 Platelet mean volume (Bld) [Entitic vol] 11.4 fL 6.2-12.0 [facility] Work Phone: Determination of erythrocyte mean corpuscular volume (MCV)on 07-09-2021 MCV (RBC) [Entitic vol] 96.8 fL 81-99 [facility] Work Phone: Erythrocyte sedimentation ra wade 07-09-2021 ESR (Bld) [Velocity] 6 mm/h 0-30 [facility] Work Phone: Hematocrit Auto (Bld) [Volum e fraction]on 07-09-2021 Hematocrit (Bld) [Volume fraction] 39.9 % 37-47 [facility] Work Phone: Laboratory - Chemistry and C hemistry - challengeon 07-09-2021 ALP [Catalytic activity/Vol] 63 U/L 45-117 [facility] Work Phone: ALT [Catalytic activity/Vol] 19 U/L 13-56 [facility] Work Phone: CO2 [Moles/Vol] 27.0 mmol/L 21.0-32.0 [facility] Work Phone: Globulin (S) [Mass/Vol] 4.1 g/dL 2.2-4.2 [facility] Work Phone: Urea nitrogen/Creatinine [Mass ratio] 33.0 mg/mg 10-20 [facility] Work Phone: Laboratory - Hematology and Cell countson 07-09-2021 Erythrocyte distribution width (RBC) [Entitic vol] 51.5 fL 35.1-43.9 [facility] Work Phone: [phone] Erythrocyte distribution width (RBC) [Ratio] 14.3 % 11.6-14.6 [facility] Work Phone: Immature granulocytes/100 WBC (Bld) 0.400 % 0.0-0.9 [facility] Work Phone: Comment on above: IG% - Immature Granu locytes (promyelocytes, myelocytes and metamyelocytes) > 1% indicates that a LEFT SHIFT is Present. MCH (RBC) [Entitic mass] 32.3 pg 27.0-32.0 [facility] Work Phone: Nucleated RBC/100 WBC (Bld) [Ratio] 0 % 0-5 [facility] Work Phone: [phone] MCHC Auto (RBC) [Mass/Vol]on 07-09-2021 MCHC (RBC) [Mass/Vol] 33.3 g/dL 32-36 [facility] Work Phone: No Panel Informationon 07-09 Estimated GFR (MDRD) Amer 103 mL/min >60 [facility] Work Phone: Comment on above: GFR Calc Estimated GFR (MDRD) Non-Af Amer 85 mL/min >60 [facility] Work Phone: Comment on above: Non- GFR Calc Platelets bldon 07-09-2021 Platelets (Bld) [#/Vol] 215 10*3/uL 150-450 [facility] Work Phone: Serum or plasma C reactive p rotein measurement (mass/volume)on 07-09-2021 CRP [Mass/Vol] mg/L 0.0-3.0 [facility] Work Phone: Comment on above: C-Reactive Protein ( CRP) provides useful information for thediagnosis, therapy and monitoring of inflammatory processesand associated diseases. For the evaluation of Relative Riskfor Cardiovascular Disease, a High Sensitivity CRP (HSCRP)should be ordered. Serum or plasma albumin tammie urement (mass/volume)on 07-09-2021 Albumin [Mass/Vol] 2.8 g/dL 3.2-5.0 [facility] Work Phone: [phone] Serum or plasma albumin/glob ulin mass ratioon 07-09-2021 Albumin/Globulin [Mass ratio] 0.7 {ratio} 0.9-2.4 [facility] Work Phone: [phone] Serum or plasma calcium tammie urement (mass/volume)on 07-09-2021 Calcium [Mass/Vol] 8.6 mg/dL 8.5-10.1 [facility] Work Phone: [phone] Serum or plasma creatinine m easurement (mass/volume)on 07-09-2021 Creatinine [Mass/Vol] 0.73 mg/dL 0.55-1.02 [facility] Work Phone: [phone] Comment on above: The validity of the calculated GFR & GFRAA in patients over 70 years has not been determined. Clinical correlation is essential. Serum or plasma urea nitroge n measurement (mass/volume)on 07-09-2021 Urea nitrogen [Mass/Vol] 24 mg/dL 7-18 [facility] Work Phone: [phone] Thin prep Papanicolaou smear with manual screeningon 07-09-2021 Thin prep Papanicolaou smear with manual screening 20 U/L 15-37 [facility] Work Phone: [phone] Thin prep Papanicolaou smear with manual screening 8 5-15 [facility] Work Phone: [phone] Absolute lymphocyte counton 07-02-2021 Lymphocytes Auto (Unsp spec) [#/Vol] 2.06 10*3/uL 0.83-4.51 [facility] Work Phone: [phone] Basophil percentageon 2021 Basophils/100 WBC (Bld) 0.7 % 0-1 [facility] Work Phone: [phone] Bilirubin [Mass/Vol] 0.50 mg/dL 0.20-1.00 [facility] Work Phone: [phone] Comment on above: For patients on eltr ombopag therapy, use of Dimension [place] TBIL is not recommended. Chloride [Moles/Vol] 103 mmol/L 98-107 [facility] Work Phone: [phone] Eosinophils/100 WBC (Bld) 1.7 % 0-5 [facility] Work Phone: Glucose [Mass/Vol] 83 mg/dL 74-106 [facility] Work Phone: Neutrophils (Bld) [#/Vol] 5.0 10*3/uL 2.0-7.7 [facility] [facility] Work Phone: Neutrophils/100 WBC (Bld) 60.8 % 47-70 [facility] Work Phone: Potassium [Moles/Vol] 4.7 mmol/L 3.5-5.1 [facility] Work Phone: Comment on above: Moderate Hemolysis, Result may be falsely increased. Protein [Mass/Vol] 7.0 g/dL 6.4-8.2 [facility] Work Phone: Sodium [Moles/Vol] 135 mmol/L 136-145 [facility] Work Phone: [phone] WBC (Bld) [#/Vol] 8.3 10*3/uL 4.4-11.0 [facility] Work Phone: Blood erythrocytes count (nu mber/volume)on 07-02-2021 RBC (Bld) [#/Vol] 4.11 10*6/uL 4.2-5.[address] [facility] Work Phone: Blood hemoglobin measurement (mass/volume)on 07-02-2021 Hemoglobin (Bld) [Mass/Vol] 13.2 g/dL 12.0-15.0 [facility] Work Phone: Blood lymphocytes/100 leukoc yteson 07-02-2021 Lymphocytes/100 WBC (Bld) 24.9 % 19-41 [facility] Work Phone: Blood monocytes/100 leukocyt eson 07-02-2021 Monocytes/100 WBC (Bld) 11.4 % 0-10 [facility] Work Phone: Blood platelet mean volumeon 07-02-2021 Platelet mean volume (Bld) [Entitic vol] 11.0 fL 6.2-12.0 [facility] Work Phone: [phone] Determination of erythrocyte mean corpuscular volume (MCV)on 07-02-2021 MCV (RBC) [Entitic vol] 98.5 fL 81-99 [facility] Work Phone: [phone] Erythrocyte sedimentation ra wade 07-02-2021 ESR (Bld) [Velocity] 7 mm/h 0-30 [facility] Work Phone: [phone] Hematocrit Auto (Bld) [Volum e fraction]on 07-02-2021 Hematocrit (Bld) [Volume fraction] 40.5 % 37-47 [facility] Work Phone: [phone] Laboratory - Chemistry and C hemistry - challengeon 07-02-2021 ALP [Catalytic activity/Vol] 58 U/L 45-117 [facility] Work Phone: [phone] ALT [Catalytic activity/Vol] 21 U/L 13-56 [facility] Work Phone: [phone] CO2 [Moles/Vol] 29.0 mmol/L 21.0-32.0 [facility] Work Phone: [phone] Globulin (S) [Mass/Vol] 4.1 g/dL 2.2-4.2 [facility] Work Phone: [phone] Urea nitrogen/Creatinine [Mass ratio] 31.6 mg/mg 10-20 [facility] Work Phone: [phone] Laboratory - Hematology and Cell countson 07-02-2021 Erythrocyte distribution width (RBC) [Entitic vol] 51.7 fL 35.1-43.9 [facility] Work Phone: [phone] Erythrocyte distribution width (RBC) [Ratio] 14.2 % 11.6-14.6 [facility] Work Phone: [phone] Immature granulocytes/100 WBC (Bld) 0.500 % 0.0-0.9 [facility] Work Phone: [phone] Comment on above: IG% - Immature Granu locytes (promyelocytes, myelocytes and metamyelocytes) > 1% indicates that a LEFT SHIFT is Present. MCH (RBC) [Entitic mass] 32.1 pg 27.0-32.0 [facility] Work Phone: Nucleated RBC/100 WBC (Bld) [Ratio] 0 % 0-5 [facility] Work Phone: [phone] MCHC Auto (RBC) [Mass/Vol]on 07-02-2021 MCHC (RBC) [Mass/Vol] 32.6 g/dL 32-36 [facility] Work Phone: No Panel Informationon 07-02 Estimated GFR (MDRD) Amer 115 mL/min >60 [facility] Work Phone: Comment on above: GFR Calc Estimated GFR (MDRD) Non-Af Amer 95 mL/min >60 [facility] Work Phone: Comment on above: Non- GFR Calc Platelets bldon 07-02-2021 Platelets (Bld) [#/Vol] 211 10*3/uL 150-450 [facility] Work Phone: [phone] Serum or plasma C reactive p rotein measurement (mass/volume)on 07-02-2021 CRP [Mass/Vol] mg/L 0.0-3.0 [facility] Work Phone: Comment on above: C-Reactive Protein ( CRP) provides useful information for thediagnosis, therapy and monitoring of inflammatory processesand associated diseases. For the evaluation of Relative Riskfor Cardiovascular Disease, a High Sensitivity CRP (HSCRP)should be ordered. Serum or plasma albumin tammie urement (mass/volume)on 07-02-2021 Albumin [Mass/Vol] 2.9 g/dL 3.2-5.0 [facility] Work Phone: [phone] Serum or plasma albumin/glob ulin mass ratioon 07-02-2021 Albumin/Globulin [Mass ratio] 0.7 {ratio} 0.9-2.4 [facility] Work Phone: [phone] Serum or plasma calcium tammie urement (mass/volume)on 07-02-2021 Calcium [Mass/Vol] 8.4 mg/dL 8.5-10.1 [facility] Work Phone: [phone] Serum or plasma creatinine m easurement (mass/volume)on 07-02-2021 Creatinine [Mass/Vol] 0.66 mg/dL 0.55-1.02 [facility] Work Phone: [phone] Comment on above: The validity of the calculated GFR & GFRAA in patients over 70 years has not been determined. Clinical correlation is essential. Serum or plasma urea nitroge n measurement (mass/volume)on 07-02-2021 Urea nitrogen [Mass/Vol] 21 mg/dL 7-18 [facility] Work Phone: [phone] Thin prep Papanicolaou smear with manual screeningon 07-02-2021 Thin prep Papanicolaou smear with manual screening 26 U/L 15-37 [facility] Work Phone: [phone] Comment on above: Moderate Hemolysis, Result may be falsely increased. Thin prep Papanicolaou smear with manual screening 3 5-15 [facility] Work Phone: [phone] Absolute lymphocyte counton 06-25-2021 Lymphocytes Auto (Unsp spec) [#/Vol] 3.59 10*3/uL 0.83-4.51 [facility] Work Phone: Basophil percentageon 2021 Basophils/100 WBC (Bld) 1.2 % 0-1 [facility] Work Phone: [phone] Bilirubin [Mass/Vol] 0.40 mg/dL 0.20-1.00 [facility] Work Phone: [phone] Comment on above: For patients on eltr ombopag therapy, use of Dimension [place] TBIL is not recommended. Chloride [Moles/Vol] 105 mmol/L 98-107 [facility] Work Phone: Eosinophils/100 WBC (Bld) 2.0 % 0-5 [facility] Work Phone: [phone] Glucose [Mass/Vol] 82 mg/dL 74-106 [facility] Work Phone: Neutrophils (Bld) [#/Vol] 4.0 10*3/uL 2.0-7.7 [facility] Work Phone: Neutrophils/100 WBC (Bld) 47.0 % 47-70 [facility] Work Phone: [phone] Potassium [Moles/Vol] 4.7 mmol/L 3.5-5.1 [facility] Work Phone: [phone] Protein [Mass/Vol] 7.4 g/dL 6.4-8.2 [facility]: [phone] Sodium [Moles/Vol] 138 mmol/L 136-145 [facility] Work Phone: [phone] WBC (Bld) [#/Vol] 8.6 10*3/uL 4.4-11.0 [facility] Work Phone: [phone] Blood erythrocytes count (nu mber/volume)on 06-25-2021 RBC (Bld) [#/Vol] 4.57 10*6/uL 4.2-5.4 [facility] Work [facility]: [phone] Blood hemoglobin measurement (mass/volume)on 06-25-2021 Hemoglobin (Bld) [Mass/Vol] 13.8 g/dL 12.0-15.0 [facility] Work Phone: [phone] Blood lymphocytes/100 leukoc yteson 06-25-2021 Lymphocytes/100 WBC (Bld) 42.0 % 19-41 [facility] Work Phone: [phone] Blood monocytes/100 leukocyt eson 06-25-2021 Monocytes/100 WBC (Bld) 7.6 % 0-10 [facility] Work Phone: [phone] Blood platelet mean volumeon 06-25-2021 Platelet mean volume (Bld) [Entitic vol] 11.4 fL 6.2-12.0 [facility] Work Phone: [phone] Determination of erythrocyte mean corpuscular volume (MCV)on 06-25-2021 MCV (RBC) [Entitic vol] 96.1 fL 81-99 [facility] Work Phone: Erythrocyte sedimentation ra wade 06-25-2021 ESR (Bld) [Velocity] 18 mm/h 0-[address] [facility] Work Phone: [phone] Hematocrit Auto (Bld) [Volum e fraction]on 06-25-2021 Hematocrit (Bld) [Volume fraction] 43.9 % 37-47 [facility] Work Phone: [phone] Laboratory - Chemistry and C hemistry - challengeon 06-25-2021 ALP [Catalytic activity/Vol] 72 U/L 45-117 [facility] Work Phone: [phone] ALT [Catalytic activity/Vol] 19 U/L 13-56 [facility] Work Phone: [phone] CO2 [Moles/Vol] 26.0 mmol/L 21.0-32.0 [facility] Work Phone: [phone] Globulin (S) [Mass/Vol] 4.3 g/dL 2.2-4.2 [facility] Work Phone: [phone] Urea nitrogen/Creatinine [Mass ratio] 35.0 mg/mg 10-20 [facility] Work Phone: [phone] Laboratory - Hematology and Cell countson 06-25-2021 Erythrocyte distribution width (RBC) [Entitic vol] 51.1 fL 35.1-43.9 [facility] Work Phone: [phone] Erythrocyte distribution width (RBC) [Ratio] 14.4 % 11.6-14.6 [facility] Work Phone: [phone] Immature granulocytes/100 WBC (Bld) 0.200 % 0.0-0.9 [facility] Work Phone: [phone] Comment on above: IG% - Immature Granu locytes (promyelocytes, myelocytes and metamyelocytes) > 1% indicates that a LEFT SHIFT is Present. MCH (RBC) [Entitic mass] 30.2 pg 27.0-32.0 [facility] Work Phone: [phone] Nucleated RBC/100 WBC (Bld) [Ratio] 0 % 0-5 [facility] Work Phone: [phone] MCHC Auto (RBC) [Mass/Vol]on 06-25-2021 MCHC (RBC) [Mass/Vol] 31.4 g/dL 32-36 [facility] Work Phone: No Panel Informationon 06-25 Estimated GFR (MDRD) Amer 122 mL/min >60 [facility] Work Phone: [phone] Comment on above: GFR Calc Estimated GFR (MDRD) Non-Af Amer 101 mL/min >60 [facility] Work Phone: Comment on above: Non- GFR Calc Platelets bldon 06-25-2021 Platelets (Bld) [#/Vol] 244 10*3/uL 150-450 [facility] Work Phone: Serum or plasma C reactive p rotein measurement (mass/volume)on 06-25-2021 CRP [Mass/Vol] 8.29 mg/L 0.0-3.0 [facility] Work Phone: Comment on above: C-Reactive Protein ( CRP) provides useful information for thediagnosis, therapy and monitoring of inflammatory processesand associated diseases. For the evaluation of Relative Riskfor Cardiovascular Disease, a High Sensitivity CRP (HSCRP)should be ordered. Serum or plasma albumin tammie urement (mass/volume)on 06-25-2021 Albumin [Mass/Vol] 3.1 g/dL 3.2-5.0 [facility] Work Phone: Serum or plasma albumin/glob ulin mass ratioon 06-25-2021 Albumin/Globulin [Mass ratio] 0.7 {ratio} 0.9-2.4 [facility] Work Phone: [phone] Serum or plasma calcium tammie urement (mass/volume)on 06-25-2021 Calcium [Mass/Vol] 9.0 mg/dL 8.5-10.1 [facility] Work Phone: [phone] Serum or plasma creatinine m easurement (mass/volume)on 06-25-2021 Creatinine [Mass/Vol] 0.63 mg/dL 0.55-1.02 [facility] Work Phone: Comment on above: The validity of the calculated GFR & GFRAA in patients over 70 years has not been determined. Clinical correlation is essential. Serum or plasma urea nitroge n measurement (mass/volume)on 06-25-2021 Urea nitrogen [Mass/Vol] 22 mg/dL 7-18 [facility] Work Phone: Thin prep Papanicolaou smear with manual screeningon 06-25-2021 Thin prep Papanicolaou smear with manual screening 17 U/L 15-37 [facility] Work Phone: Thin prep Papanicolaou smear with manual screening 7 5-15 [facility] Work Phone: [phone] Absolute lymphocyte counton 06-18-2021 Lymphocytes Auto (Unsp spec) [#/Vol] 2.33 10*3/uL 0.83-4.51 [facility] Work Phone: Basophil percentageon 2021 Basophils/100 WBC (Bld) 0.8 % 0-1 [facility] Work Phone: Bilirubin [Mass/Vol] 0.30 mg/dL 0.20-1.00 [facility] Work Phone: Comment on above: For patients on eltr ombopag therapy, use of Dimension [place] TBIL is not recommended. Chloride [Moles/Vol] 100 mmol/L 98-107 [facility] Work Phone: Eosinophils/100 WBC (Bld) 1.8 % 0-5 [facility] Work Phone: Glucose [Mass/Vol] 81 mg/dL 74-106 [facility] Work Phone: Neutrophils (Bld) [#/Vol] 4.6 10*3/uL 2.0-7.7 [facility] Work Phone: Neutrophils/100 WBC (Bld) 58.4 % 47-70 [facility] Work Phone: Potassium [Moles/Vol] 4.5 mmol/L 3.5-5.1 [facility] Work Phone: Protein [Mass/Vol] 7.4 g/dL 6.4-8.2 [facility] Work Phone: Sodium [Moles/Vol] 135 mmol/L 136-145 [facility] Work Phone: [phone] WBC (Bld) [#/Vol] 7.9 10*3/uL 4.4-11.0 [facility] Work Phone: [phone] Blood erythrocytes count (nu mber/volume)on 06-18-2021 RBC (Bld) [#/Vol] 4.36 10*6/uL 4.2-5.4 [facility] Work Phone: [phone] Blood hemoglobin measurement (mass/volume)on 06-18-2021 Hemoglobin (Bld) [Mass/Vol] 13.6 g/dL 12.0-15.0 [facility] Work Phone: [phone] Blood lymphocytes/100 leukoc yteson 06-18-2021 Lymphocytes/100 WBC (Bld) 29.6 % 19-41 [facility] Work Phone: [phone] Blood monocytes/100 leukocyt eson 06-18-2021 Monocytes/100 WBC (Bld) 9.0 % 0-10 [facility] Work Phone: [phone] Blood platelet mean volumeon 06-18-2021 Platelet mean volume (Bld) [Entitic vol] 11.1 fL 6.2-12.0 [facility] Work Phone: [phone] Determination of erythrocyte mean corpuscular volume (MCV)on 06-18-2021 MCV (RBC) [Entitic vol] 95.9 fL 81-99 [facility] Work Phone: [phone] Erythrocyte sedimentation ra wade 06-18-2021 ESR (Bld) [Velocity] 6 mm/h 0-30 [facility] Work Phone: [phone] Hematocrit Auto (Bld) [Volum e fraction]on 06-18-2021 Hematocrit (Bld) [Volume fraction] 41.8 % 37-47 [facility] Work Phone: [phone] Laboratory - Chemistry and C hemistry - challengeon 06-18-2021 ALP [Catalytic activity/Vol] 66 U/L 45-117 [facility] Work Phone: [phone] ALT [Catalytic activity/Vol] 24 U/L 13-56 [facility] Work Phone: [phone] CO2 [Moles/Vol] 28.0 mmol/L 21.0-32.0 [facility] Work Phone: [phone] Globulin (S) [Mass/Vol] 4.3 g/dL 2.2-4.2 [facility] Work Phone: [phone] Urea nitrogen/Creatinine [Mass ratio] 29.9 mg/mg 10-20 [facility] Work Phone: [phone] Laboratory - Hematology and Cell countson 06-18-2021 Erythrocyte distribution width (RBC) [Entitic vol] 51.1 fL 35.1-43.9 [facility] Work Phone: [phone] Erythrocyte distribution width (RBC) [Ratio] 14.4 % 11.6-14.6 [facility] Work Phone: [phone] Immature granulocytes/100 WBC (Bld) 0.400 % 0.0-0.9 [facility] Work Phone: [phone] Comment on above: IG% - Immature Granu locytes (promyelocytes, myelocytes and metamyelocytes) > 1% indicates that a LEFT SHIFT is Present. MCH (RBC) [Entitic mass] 31.2 pg 27.0-32.0 [facility] Work Phone: [phone] Nucleated RBC/100 WBC (Bld) [Ratio] 0 % 0-5 [facility] Work Phone: [phone] MCHC Auto (RBC) [Mass/Vol]on 06-18-2021 MCHC (RBC) [Mass/Vol] 32.5 g/dL 32-36 [facility] Work Phone: [phone] Panel Informationon 06-18 Estimated GFR (MDRD) Amer 114 mL/min >60 [facility] Work Phone: [phone] Comment on above: GFR Calc Estimated GFR (MDRD) Non-Af Amer 94 mL/min >60 [facility] Work Phone: Comment on above: Non- GFR Calc Platelets bldon 06-18-2021 Platelets (Bld) [#/Vol] 195 10*3/uL 150-450 [facility] Work Phone: Serum or plasma C reactive p rotein measurement (mass/volume)on 06-18-2021 CRP [Mass/Vol] 4.20 mg/L 0.0-3.0 [facility] Work Phone: Comment on above: C-Reactive Protein ( CRP) provides useful information for thediagnosis, therapy and monitoring of inflammatory processesand associated diseases. For the evaluation of Relative Riskfor Cardiovascular Disease, a High Sensitivity CRP (HSCRP)should be ordered. Serum or plasma albumin tammie urement (mass/volume)on 06-18-2021 Albumin [Mass/Vol] 3.1 g/dL 3.2-5.0 [facility] Work Phone: Serum or plasma albumin/glob ulin mass ratioon 06-18-2021 Albumin/Globulin [Mass ratio] 0.7 {ratio} 0.9-2.4 [facility] Work Phone: Serum or plasma calcium tammie urement (mass/volume)on 06-18-2021 Calcium [Mass/Vol] 8.6 mg/dL 8.5-10.1 [facility] Work Phone: Serum or plasma creatinine m easurement (mass/volume)on 06-18-2021 Creatinine [Mass/Vol] 0.67 mg/dL 0.55-1.02 [facility] Work Phone: Comment on above: The validity of the calculated GFR & GFRAA in patients over 70 years has not been determined. Clinical correlation is essential. Serum or plasma urea nitroge n measurement (mass/volume)on 06-18-2021 Urea nitrogen [Mass/Vol] 20 mg/dL -18 [facility] Work Phone: Thin prep Papanicolaou smear with manual screeningon 06-18-2021 Thin prep Papanicolaou smear with manual screening 22 U/L 15-37 [facility] Work Phone: Thin prep Papanicolaou smear with manual screening 7 5-15 [facility] Work Phone: Absolute lymphocyte counton 06-11-2021 Lymphocytes Auto (Unsp spec) [#/Vol] 2.02 10*3/uL 0.83-4.51 [facility] Work Phone: Basophil percentageon 2021 Basophils/100 WBC (Bld) 0.8 % 0-1 [facility] Work Phone: Bilirubin [Mass/Vol] 0.40 mg/dL 0.20-1.00 [facility] Work Phone: Comment on above: For patients on eltr ombopag therapy, use of Dimension [place] TBIL is not recommended. Chloride [Moles/Vol] 101 mmol/L 98-107 [facility] Work Phone: Eosinophils/100 WBC (Bld) 2.0 % 0-5 [facility] Work Phone: Glucose [Mass/Vol] 84 mg/dL 74-106 [facility] Work Phone: Comment on above: Please note revised GLUCOSE reference range effective 2017. Neutrophils (Bld) [#/Vol] 4.5 10*3/uL 2.0-7.7 [facility] Work Phone: Neutrophils/100 WBC (Bld) 58.4 % 47-70 [facility] Work Phone: Potassium [Moles/Vol] 4.4 mmol/L 3.5-5.1 [facility] Work Phone: Protein [Mass/Vol] 6.9 g/dL 6.4-8.2 [facility] Work Phone: Sodium [Moles/Vol] 137 mmol/L 136-145 [facility] Work Phone: WBC (Bld) [#/Vol] 7.6 10*3/uL 4.4-11.0 [facility] Work Phone: Blood erythrocytes count (nu mber/volume)on 06-11-2021 RBC (Bld) [#/Vol] 4.08 10*6/uL 4.2-5.[address] [facility] Work Phone: Blood hemoglobin measurement (mass/volume)on 06-11-2021 Hemoglobin (Bld) [Mass/Vol] 12.9 g/dL 12.0-15.0 [facility] Work Phone: [phone] Blood lymphocytes/100 leukoc yteson 06-11-2021 Lymphocytes/100 WBC (Bld) 26.4 % 19-41 [facility] Work Phone: [phone] Blood monocytes/100 leukocyt eson 06-11-2021 Monocytes/100 WBC (Bld) 12.0 % 0-10 [facility] Work Phone: Blood platelet mean volumeon 06-11-2021 Platelet mean volume (Bld) [Entitic vol] 11.1 fL 6.2-12.0 [facility] Work Phone: [phone] Determination of erythrocyte mean corpuscular volume (MCV)on 06-11-2021 MCV (RBC) [Entitic vol] 95.6 fL 81-99 [facility] Work Phone: Erythrocyte sedimentation ra wade 06-11-2021 ESR (Bld) [Velocity] 12 mm/h 0-30 [facility] Work Phone: [phone] Hematocrit Auto (Bld) [Volum e fraction]on 06-11-2021 Hematocrit (Bld) [Volume fraction] 39.0 % 37-47 [facility] Work Phone: Laboratory - Chemistry and C hemistry - challengeon 06-11-2021 ALP [Catalytic activity/Vol] 61 U/L 45-117 [facility] Work Phone: ALT [Catalytic activity/Vol] 23 U/L 13-56 [facility] Work Phone: [phone] CO2 [Moles/Vol] 30.0 mmol/L 21.0-32.0 [facility] Work Phone: [phone] Globulin (S) [Mass/Vol] 4.2 g/dL 2.2-4.2 [facility] Work Phone: [phone] Urea nitrogen/Creatinine [Mass ratio] 28.7 mg/mg 10-20 [facility] Work Phone: [phone] Laboratory - Hematology and Cell countson 06-11-2021 Erythrocyte distribution width (RBC) [Entitic vol] 51.7 fL 35.1-43.9 [facility] Work Phone: [phone] Erythrocyte distribution width (RBC) [Ratio] 14.8 % 11.6-14.6 [facility] Work Phone: [phone] Immature granulocytes/100 WBC (Bld) 0.400 % 0.0-0.9 [facility] Work Phone: [phone] Comment on above: IG% - Immature Granu locytes (promyelocytes, myelocytes and metamyelocytes) > 1% indicates that a LEFT SHIFT is Present. MCH (RBC) [Entitic mass] 31.6 pg 27.0-32.0 [facility] Work Phone: [phone] Nucleated RBC/100 WBC (Bld) [Ratio] 0 % 0-5 [facility] Work Phone: [phone] MCHC Auto (RBC) [Mass/Vol]on 06-11-2021 MCHC (RBC) [Mass/Vol] 33.1 g/dL 32-36 [facility] Work Phone: [phone] Panel Informationon 06-11 Estimated GFR (MDRD) Amer 123 mL/min >60 [facility] Work Phone: [phone] Comment on above: GFR Calc Estimated GFR (MDRD) Non-Af Amer 101 mL/min >60 [facility] Work Phone: [phone] Comment on above: Non- GFR Calc Platelets bldon 06-11-2021 Platelets (Bld) [#/Vol] 194 10*3/uL 150-450 [facility] Work Phone: [phone] Serum or plasma C reactive p rotein measurement (mass/volume)on 06-11-2021 CRP [Mass/Vol] 3.14 mg/L 0.0-3.0 [facility] Work Phone: Comment on above: C-Reactive Protein ( CRP) provides useful information for thediagnosis, therapy and monitoring of inflammatory processesand associated diseases. For the evaluation of Relative Riskfor Cardiovascular Disease, a High Sensitivity CRP (HSCRP)should be ordered. Serum or plasma albumin tammie urement (mass/volume)on 06-11-2021 Albumin [Mass/Vol] 2.7 g/dL 3.2-5.0 [facility] Work Phone: Serum or plasma albumin/glob ulin mass ratioon 06-11-2021 Albumin/Globulin [Mass ratio] 0.6 {ratio} 0.9-2.4 [facility] Work Phone: Serum or plasma calcium tammie urement (mass/volume)on 06-11-2021 Calcium [Mass/Vol] 8.5 mg/dL 8.5-10.1 [facility] Work Phone: Serum or plasma creatinine m easurement (mass/volume)on 06-11-2021 Creatinine [Mass/Vol] 0.63 mg/dL 0.55-1.02 [facility] Work Phone: Comment on above: The validity of the calculated GFR & GFRAA in patients over 70 years has not been determined. Clinical correlation is essential. Serum or plasma urea nitroge n measurement (mass/volume)on 06-11-2021 Urea nitrogen [Mass/Vol] 18 mg/dL 7-18 [facility] Work Phone: [phone] Thin prep Papanicolaou smear with manual screeningon 06-11-2021 Thin prep Papanicolaou smear with manual screening 17 U/L 15-37 [facility] Work Phone: [phone] Thin prep Papanicolaou smear with manual screening 6 5-15 [facility] Work Phone: [phone] Absolute lymphocyte counton 06-04-2021 Lymphocytes Auto (Unsp spec) [#/Vol] 3.89 10*3/uL 0.83-4.51 [facility] Work Phone: Basophil percentageon 2021 Basophils/100 WBC (Bld) 0.9 % 0-1 [facility] Work Phone: Bilirubin [Mass/Vol] 0.30 mg/dL 0.20-1.00 [facility] Work Phone: Comment on above: For patients on eltr ombopag therapy, use of Dimension [place] TBIL is not recommended. Chloride [Moles/Vol] 102 mmol/L 98-107 [facility] Work Phone: Eosinophils/100 WBC (Bld) 2.1 % 0-5 [facility] Work Phone: Glucose [Mass/Vol] 97 mg/dL 74-106 [facility] Work Phone: Comment on above: Please note revised GLUCOSE reference range effective 2017. Neutrophils (Bld) [#/Vol] 4.9 10*3/uL 2.0-7.7 [facility] Work Phone: Neutrophils/100 WBC (Bld) 50.4 % 47-70 [facility] Work Phone: Potassium [Moles/Vol] 4.8 mmol/L 3.5-5.1 [facility] Work Phone: Comment on above: Slight Hemolysis, Re sult may be falsely increased. Protein [Mass/Vol] 7.8 g/dL 6.4-8.2 [facility] Work Phone: Sodium [Moles/Vol] 138 mmol/L 136-145 [facility] Work Phone: WBC (Bld) [#/Vol] 9.8 10*3/uL 4.4-11.0 [facility] Work Phone: Blood erythrocytes count (nu mber/volume)on 06-04-2021 RBC (Bld) [#/Vol] 4.45 10*6/uL 4.2-5.[address] [facility] Work Phone: [phone] Blood hemoglobin measurement (mass/volume)on 06-04-2021 Hemoglobin (Bld) [Mass/Vol] 13.5 g/dL 12.0-15.0 [facility] Work Phone: Blood lymphocytes/100 leukoc yteson 06-04-2021 Lymphocytes/100 WBC (Bld) 39.6 % 19-41 [facility] Work Phone: [phone] Blood monocytes/100 leukocyt eson 06-04-2021 Monocytes/100 WBC (Bld) 6.6 % 0-10 [facility] Work Phone: [phone] Blood platelet mean volumeon 06-04-2021 Platelet mean volume (Bld) [Entitic vol] 11.0 fL 6.2-12.0 [facility] Work Phone: [phone] Determination of erythrocyte mean corpuscular volume (MCV)on 06-04-2021 MCV (RBC) [Entitic vol] 95.7 fL 81-99 [facility] Work Phone: [phone] Erythrocyte sedimentation ra wade 06-04-2021 ESR (Bld) [Velocity] 12 mm/h 0-30 [facility] Work [facility]: [phone] Hematocrit Auto (Bld) [Volum e fraction]on 06-04-2021 Hematocrit (Bld) [Volume fraction] 42.6 % 37-47 [facility] Work Phone: [phone] Laboratory - Chemistry and C hemistry - challengeon 06-04-2021 ALP [Catalytic activity/Vol] 71 U/L 45-117 [facility] Work Phone: [phone] ALT [Catalytic activity/Vol] 27 U/L 13-56 [facility] Work Phone: [phone] CO2 [Moles/Vol] 27.0 mmol/L 21.0-32.0 [facility] Work Phone: [phone] Globulin (S) [Mass/Vol] 4.7 g/dL 2.2-4.2 [facility] Work Phone: [phone] Urea nitrogen/Creatinine [Mass ratio] 31.2 mg/mg 10-20 [facility] Work Phone: [phone] Laboratory - Hematology and Cell countson 06-04-2021 Erythrocyte distribution width (RBC) [Entitic vol] 52.3 fL 35.1-43.9 [facility] Work Phone: [phone] Erythrocyte distribution width (RBC) [Ratio] 14.7 % 11.6-14.6 [facility] Work Phone: [phone] Immature granulocytes/100 WBC (Bld) 0.400 % 0.0-0.9 [facility] Work Phone: [phone] Comment on above: IG% - Immature Granu locytes (promyelocytes, myelocytes and metamyelocytes) > 1% indicates that a LEFT SHIFT is Present. MCH (RBC) [Entitic mass] 30.3 pg 27.0-32.0 [facility] Work Phone: [phone] Nucleated RBC/100 WBC (Bld) [Ratio] 0 % 0-5 [facility] Work Phone: [phone] MCHC Auto (RBC) [Mass/Vol]on 06-04-2021 MCHC (RBC) [Mass/Vol] 31.7 g/dL 32-36 [facility] Work Phone: [phone] No Panel Informationon 06-04 Estimated GFR (MDRD) Amer 107 mL/min >60 [facility] Work Phone: [phone] Comment on above: GFR Calc Estimated GFR (MDRD) Non-Af Amer 88 mL/min >60 [facility] Work Phone: [phone] Comment on above: Non- GFR Calc Platelets bldon 06-04-2021 Platelets (Bld) [#/Vol] 279 10*3/uL 150-450 [facility] Work Phone: [phone] Serum or plasma C reactive p rotein measurement (mass/volume)on 06-04-2021 CRP [Mass/Vol] 3.79 mg/L 0.0-3.0 [facility] Work Phone: [phone] Comment on above: C-Reactive Protein ( CRP) provides useful information for thediagnosis, therapy and monitoring of inflammatory processesand associated diseases. For the evaluation of Relative Riskfor Cardiovascular Disease, a High Sensitivity CRP (HSCRP)should be ordered. Serum or plasma albumin tammie urement (mass/volume)on 06-04-2021 Albumin [Mass/Vol] 3.1 g/dL 3.2-5.0 [facility] Work Phone: Serum or plasma albumin/glob ulin mass ratioon 06-04-2021 Albumin/Globulin [Mass ratio] 0.7 {ratio} 0.9-2.4 [facility] Work Phone: Serum or plasma calcium tammie urement (mass/volume)on 06-04-2021 Calcium [Mass/Vol] 9.0 mg/dL 8.5-10.1 [facility] Work Phone: Serum or plasma creatinine m easurement (mass/volume)on 06-04-2021 Creatinine [Mass/Vol] 0.71 mg/dL 0.55-1.02 [facility] Work Phone: Comment on above: The validity of the calculated GFR & GFRAA in patients over 70 years has not been determined. Clinical correlation is essential. Serum or plasma urea nitroge n measurement (mass/volume)on 06-04-2021 Urea nitrogen [Mass/Vol] 22 mg/dL 7-18 [facility] Work Phone: Thin prep Papanicolaou smear with manual screeningon 06-04-2021 Thin prep Papanicolaou smear with manual screening 22 U/L 15-37 [facility] Work Phone: Comment on above: Slight Hemolysis, Re sult may be falsely increased. Thin prep Papanicolaou smear with manual screening 9 5-15 [facility] Work Phone: Absolute lymphocyte counton 05-28-2021 Lymphocytes Auto (Unsp spec) [#/Vol] 2.83 10*3/uL 0.83-4.51 [facility] Work Phone: Basophil percentageon 2020 Bilirubin [Mass/Vol] 0.30 mg/dL 0.20-1.00 [facility] Work Phone: Comment on above: For patients on eltr ombopag therapy, use of Dimension [place] TBIL is not recommended. Chloride [Moles/Vol] 104 mmol/L 98-107 [facility] Work Phone: Eosinophils/100 WBC (Bld) 2.0 % 0-5 [facility] Work Phone: Glucose [Mass/Vol] 85 mg/dL 74-106 [facility] Work Phone: Comment on above: Please note revised GLUCOSE reference range effective 2017. Neutrophils (Bld) [#/Vol] 4.9 10*3/uL 2.0-7.7 [facility] Work Phone: Potassium [Moles/Vol] 4.3 mmol/L 3.5-5.1 [facility] Work Phone: Protein [Mass/Vol] 7.2 g/dL 6.4-8.2 [facility] Work Phone: Sodium [Moles/Vol] 137 mmol/L 136-145 [facility] Work Phone: WBC (Bld) [#/Vol] 8.9 10*3/uL 4.4-11.0 [facility] Work Phone: Blood erythrocytes count (nu mber/volume)on 05-28-2021 RBC (Bld) [#/Vol] 4.29 10*6/uL 4.2-5.[address] [facility] Work Phone: Blood hemoglobin measurement (mass/volume)on 05-28-2021 Hemoglobin (Bld) [Mass/Vol] 13.3 g/dL 12.0-15.0 [facility] Work Phone: Blood lymphocytes/100 leukoc yteson 05-28-2021 Lymphocytes/100 WBC (Bld) 31.9 % 19-41 [facility] Work Phone: Blood monocytes/100 leukocyt eson 05-28-2021 Monocytes/100 WBC (Bld) 9.5 % 0-10 [facility] Work Phone: Blood platelet mean volumeon 05-28-2021 Platelet mean volume (Bld) [Entitic vol] 10.6 fL 6.2-12.0 [facility] Work Phone: Determination of erythrocyte mean corpuscular volume (MCV)on 05-28-2021 MCV (RBC) [Entitic vol] 93.2 fL 81-99 [facility] Work Phone: Erythrocyte sedimentation ra wade 05-28-2021 ESR (Bld) [Velocity] 15 mm/h 0-30 [facility] Work Phone: Hematocrit Auto (Bld) [Volum e fraction]on 05-28-2021 Hematocrit (Bld) [Volume fraction] 40.0 % 37-47 [facility] Work Phone: Laboratory - Chemistry and C hemistry - challengeon 05-28-2021 ALP [Catalytic activity/Vol] 75 U/L 45-117 [facility] Work Phone: ALT [Catalytic activity/Vol] 24 U/L 13-56 [facility] Work Phone: CO2 [Moles/Vol] 26.0 mmol/L 21.0-32.0 [facility] Work Phone: Globulin (S) [Mass/Vol] 4.4 g/dL 2.2-4.2 [facility] Work Phone: Urea nitrogen/Creatinine [Mass ratio] 36.5 mg/mg 10-20 [facility] Work Phone: Laboratory - Hematology and Cell countson 05-28-2021 Basophils/100 WBC (Unsp spec) 0.9 % 0-1 [facility] Work Phone: Erythrocyte distribution width (RBC) [Entitic vol] 51.4 fL 35.1-43.9 [facility] Work Phone: Erythrocyte distribution width (RBC) [Ratio] 14.8 % 11.6-14.6 [facility] Work Phone: Immature granulocytes/100 WBC (Bld) 0.300 % 0.0-0.9 [facility] Work Phone: [phone] Comment on above: IG% - Immature Granu locytes (promyelocytes, myelocytes and metamyelocytes) > 1% indicates that a LEFT SHIFT is Present. MCH (RBC) [Entitic mass] 31.0 pg 27.0-32.0 [facility] Work Phone: [phone] Neutrophils/100 WBC (Bld) 55.4 % 47-70 [facility] Work Phone: [phone] Nucleated RBC/100 WBC (Bld) [Ratio] 0 % 0-5 [facility] Work Phone: [phone] MCHC Auto (RBC) [Mass/Vol]on 05-28-2021 MCHC (RBC) [Mass/Vol] 33.3 g/dL 32-36 [facility] Work Phone: No Panel Informationon 05-28 Estimated GFR (MDRD) Amer 116 mL/min >60 [facility] Work Phone: Comment on above: GFR Calc Estimated GFR (MDRD) Non-Af Amer 96 mL/min >60 [facility] Work Phone: Comment on above: Non- GFR Calc Platelets bldon 05-28-2021 Platelets (Bld) [#/Vol] 221 10*3/uL 150-450 [facility] Work Phone: Serum or plasma C reactive p rotein measurement (mass/volume)on 05-28-2021 CRP [Mass/Vol] 4.87 mg/L 0.0-3.0 [facility] Work Phone: [phone] Comment on above: C-Reactive Protein ( CRP) provides useful information for thediagnosis, therapy and monitoring of inflammatory processesand associated diseases. For the evaluation of Relative Riskfor Cardiovascular Disease, a High Sensitivity CRP (HSCRP)should be ordered. Serum or plasma albumin tammie urement (mass/volume)on 05-28-2021 Albumin [Mass/Vol] 2.8 g/dL 3.2-5.0 [facility] Work Phone: Serum or plasma albumin/glob ulin mass ratioon 05-28-2021 Albumin/Globulin [Mass ratio] 0.6 {ratio} 0.9-2.4 [facility] Work Phone: Serum or plasma calcium tammie urement (mass/volume)on 05-28-2021 Calcium [Mass/Vol] 8.9 mg/dL 8.5-10.1 [facility] Work Phone: Serum or plasma creatinine m easurement (mass/volume)on 05-28-2021 Creatinine [Mass/Vol] 0.66 mg/dL 0.55-1.02 [facility] Work Phone: Comment on above: The validity of the calculated GFR & GFRAA in patients over 70 years has not been determined. Clinical correlation is essential. Serum or plasma urea nitroge n measurement (mass/volume)on 05-28-2021 Urea nitrogen [Mass/Vol] 24 mg/dL 7-18 [facility] Work Phone: Thin prep Papanicolaou smear with manual screeningon 05-28-2021 Thin prep Papanicolaou smear with manual screening 22 U/L 15-37 [facility] Work Phone: Thin prep Papanicolaou smear with manual screening 7 5-15 [facility] Work Phone: CNPMuna 02-28-2021 [facility] CHARLIE NGUYEN ([id number]) 1955 F Date Time Provider Department 02/28/21 KELVIN ESPINO During your visit today, we recorded the following information about you: Kelvin Espino MD 02/28/2021 1:54 PM Addendum Call from [facility] ([facility]). Pt has developed a faint rash [...] Fully Assessed Reason for Visit: Patient Question [1477] Prescriptions as of 02/28/2021 - oxyCODONE-acetaminoph en [...] [Z79.891] 0 (more content not included)... Normal [facility] CTA CHEST W WO CONTRASTOrder ed By: Nehal Madden on 01-15-2021 Patient Name: CHARLIE NGUYEN Computed Tomography ACCESSION EXAM DATE/TIME PROCEDURE ORDERING PROVIDER [id number] 01/15/2021 14:48 EDT CTA Chest w/ + w/o [id number] Araseli SANCHEZ CPT code 38806 Q9967 Reason For Exam (CTA Chest w/ [...] were concurrently generated by me on the Julisa workstation to better visualize gross vascular anatomy. [...] Phone: Rodolfo, [facility] 3:29 PM EDT Patient Name: CHARLIE NGUYEN Computed Tomography ACCESSION EXAM DATE/TIME PROCEDURE ORDERING PROVIDER [id number] 01/15/2021 14:48 EDT CTA Chest w/ + w/o [id number] -CHANO, Contrast NEHAL CPT code 49101 Q9967 Reason For Exam (CTA Chest w/ [...] the pulmonary arteries were concurrently generated by vt on the [employer] workstation to better visualize gross vascular anatomy. [...] Time: 01/15/2021 3:28 pm Signed by: MD PAKO, ISAURO Transcribed Date and Time: 01/15/2021 3:29 [facility] Work Phone: [phone] [facility] Work Phone: [phone] Comprehensive Metabolic Pane l w/ Reflex to MGOrdered By: Nehal Madden on 01-15-2021 EGFR IF NonAfrican Iraqi >90.0 >60 mL/min [facility] Work Phone: Comment on above: KDIGO guidelines [...] 29.9 mmol/L High 23.0 - 27.0 mmol/L [facility] Work Phone: [phone] Albumin [Mass/Vol] 3.7 g/dL 3.5 - 5.0 g/dL [facility] Work Phone: [phone] ALP (Bld) [Catalytic activity/Vol] 100 U/L 38 - 126 U/L [facility] Work Phone: ALT [Catalytic activity/Vol] 11 U/L 0 - 34 U/L [facility] Work Phone: Comment on above: The ALT test is perf ormed by an updated assay method. Please note that the reference intervals have been changed and are now sex specific. Anion gap [Moles/Vol] 5 mmol/L 3 - 13 mmol/L [facility] Work Phone: AST [Catalytic activity/Vol] 28 U/L 15 - 46 U/L [facility] Work Phone: Bilirubin [Mass/Vol] 0.4 mg/dL 0.2 - 1 .3 mg/dL [facility] Work Phone: Calcium [Mass/Vol] 10.2 mg/dL 8.4 - 10. 4 mg/dL [facility] Work Phone: [phone] Chloride [Moles/Vol] 104 mmol/L 98 - 10 7 mmol/L [facility] Work Phone: [phone] CO2 [Moles/Vol] 29 mmol/L 22 - 30 mmol/L [facility] Work Phone: [phone] Creatinine [Mass/Vol] 0.62 mg/dL 0.52 - 1.25 mg/dL [facility] Work Phone: [phone] Free PSA/Total PSA [Mass fraction] 7.4 g/dL 6.3 - 8.2 g/dL [facility] Work Phone: GFR/1.73 sq M.predicted among blacks MDRD (S/P/Bld) [Vol rate/Area] mL/min/{1.73_m2} >60 mL/min [facility] Work Phone: Glucose [Mass/Vol] 103 mg/dL High 70 - 100 mg/dL [facility] Work Phone: Lipase [Catalytic activity/Vol] 86 U/L 23 - 300 U/L [facility] Work Phone: Potassium [Moles/Vol] 4.2 mmol/L 3.5 - 5.1 mmol/L [facility] Work Phone: Sodium [Moles/Vol] 139 mmol/L 135 - 145 [...] (Bld) 0.2 % 0.0 - 2.0 % [facility] Work Phone: Eosinophils (Bld) [#/Vol] 0.6 10*3/uL High 0.0 - 0.5 10*3/uL [facility] Work Phone: Eosinophils/100 WBC (Bld) 4.0 % 1.0 - 6.0 % [facility] Work Phone: Granulocytes/100 WBC (Bld) 84.8 % High 40.0 - 80.0 % [facility] Work Phone: Hematocrit (Bld) [Volume fraction] 35.0 % 35.0 - 47.0 % [facility] Work Phone: Lymphocytes (Bld) [#/Vol] 0.6 10*3/uL Low 1.0 - 4.3 10*3/uL [facility] Work Phone: Lymphocytes/100 WBC (Bld) 4.6 % Low 20.0 - 40.0 % [facility] Work Phone: MCH (RBC) [Entitic mass] 32.3 pg 26. 0 - 34.0 pg [facility] Work Phone: MCHC (RBC) [Mass/Vol] 33.9 % 32.0 - 36.0 % [facility] Work Phone: MCV (RBC) [Entitic vol] 95.3 fL 79.0 - 98.0 fL [facility] Work Phone: Monocytes (Bld) [#/Vol] 0.9 10*3/uL High 0.0 - 0.8 10*3/uL [facility] Work Phone: Monocytes/100 WBC (Bld) 6.4 % 2.0 - 10.0 % [facility] Work Phone: Platelet distribution width (Bld) [Ratio] 15.0 % High 11.5 - 14.5 % [facility] Work Phone: Platelet mean volume (Bld) [Entitic vol] 9.3 fL 7.4 - 10.4 fL [facility] Work Phone: Platelets (Bld) [#/Vol] 255 10*3/uL 140 - 440 10*3/uL [facility] Work Phone: RBC (Bld) [#/Vol] 3.67 10*6/uL Low 3.80 - 5.2 0 10*6/uL [facility] Work Phone: WBC (Bld) [#/Vol] 14.0 10*3/uL High 3.6 - 10.7 10*3/uL [facility] Work Phone: No Panel InformationOrdered By: Nehal Madden on 01-15-2021 Procalcitonin 1.67 ng/mL High 0.00 - 0.09 ng/mL [facility] Work Phone: Interpretation and review of laboratory results Abnormal [facility] Work Phone: Test Performed by [facility] [employer] [address] Work Phone: [facility] Work Phone: Test Performed by [address] Work Phone: [facility] Work Phone: Absolute Baso # 0.0 10*3/uL 0.0 - 0.2 10*3/uL [facility] Work Phone: Absolute Neut # 11.8 10*3/uL High 1.8 - 7.0 10*3/uL [facility] Work Phone: POCT VenousOrdered By: Sera Madden on 01-15-2021 Base Excess, Maikel 3.4 mmol/L High -3.0 - 3.0 mmol/L [facility] Work Phone: [phone] Venous 6 [facility] Work Phone: 1 Comment on above: Performed by CLIA ID : [id number] [facility] CenterAttune [place]DV[place], [place] Interpretation and review of laboratory results Abnormal [facility] Work Phone: 1 pCO2, Maikel 52.9 mm[Hg] 40.0 - 55.0 mm[Hg] [facility] Work Phone: 1 pH, Maikel 7.361 [facility] Work Phone: 1 pO2, Maikel 62.4 mm[Hg] High 30.0 - 50.0 mm[Hg] [facility] Work Phone: 1 TC02 (Calc), Maikel 31.5 mmol/L High 24.0 - 28.0 mmol/L [facility] Work Phone: 1 Test Performed by [facility], [address] [place] [id number] [facility] Work Phone: [facility] Work Phone: 1 ProcalcitoninOrdered By: Linda Madden on 01-15-2021 Interpretation See Below [facility] Work Phone: Comment on above: PCT <0.50 = Low risk of severe sepsis and/or septic shock. PCT >2.00 = High risk of severe sepsis and/or septic shock. Interpretation and review of laboratory results Abnormal [facility] Work Phone: 1 Test Performed by [employer], [address] [place] [id number] [facility] Work Phone: 1 [facility] Work Phone: 1 Respiratory Panel, Molecular , with COVID-19 (Restricted: [...] management decisions. This assay was developed by [employer] and distributed under an Emergency Use Authorization (EUA) granted by the FDA for the qualitative detection of SARS-CoV-2 nucleic acid. Provider and patient fact sheets can be found at https://www.fda.gov/m edia/593654/download and https://www.fda.gov/m edia/847727/download. [employer] Work Phone: Test Performed by [facility] [address] [employer] Work Phone: [employer] Work Phone: Vital signsOrdered By: Sera Madden on 01-15-2021 Oxygen saturation in Blood 90.1 % High 60.0 - 80.0 % [employer] Work Phone: XR CHEST PORTABLEOrdered By: Nehal Madden on 01-15-2021 Patient Name: CHARLIE NGUYEN Diagnostic Radiology ACCESSION EXAM DATE/TIME PROCEDURE ORDERING PROVIDER [id number] 01/15/2021 12:53 EDT CR Chest Portable [id number] NEHAL SANCHEZ CPT code 42530 Reason For Exam (CR Chest Portable) sepsis [...] R Transcribed Date and Time: 01/15/2021 1:01 [facility] Work Phone: [facility] From [facility] - 01/15/2021 1:01 PM EDT Patient Name: CHARLIE NGUYEN Diagnostic Radiology ACCESSION EXAM DATE/TIME PROCEDURE ORDERING PROVIDER [id number] 01/15/2021 12:53 EDT CR Chest Portable [id number] -NEHAL MADDEN CPT code 56759 Reason For Exam (CR Chest Portable) sepsis [...] R Transcribed Date and Time: 01/15/2021 1:01 [facility] Work Phone: [facility] Work Phone: CULT/STAIN - AEROBIC AND GAYLA EROBICon 01-11-2021 CULT/STAIN - AEROBIC AND ANAEROBIC CULT./ST. BACTERIA --> Status: F No growth at 3 days. CULTURE ANAEROBE --> Status: F No growth of anaerobes at 5 days. Normal [facility] Comment on above: Performed By: #### C Anitra CORONA/PADILLA ####[facility] [id number] [place], [place] CULTURE BLOODon 01-11-2021 Microscopic examination of blood, culture CULTURE BLOOD --> Status: F No growth at 5 days. Normal [facility] Comment on above: Performed By: #### C /BLD ####[facility] Center[facility]oir[address] [place], [place] CULTURE BLOOD (Two)on 2020 Microscopic examination of blood, culture CULTURE BLOOD (Two) --> Status: F No growth at 5 days. Normal [facility] Comment on above: Performed By: #### C /BLT ####[facility] [place], [place] C-Reactive Proteinon 021 C-Reactive Protein 5.1 mg/dL High 0.0-0.9 [facility] CASE MANAGEMon 01-08-2021 CASE MANAGEM HNO ID: [id number] Author: Trish Gambino RN Service: Case Management Author Type: Registered Nurse Type: Care Mgt Progress Note Filed: 01/08/2021 12:32 PM Note Text: CARE MANAGEMENT DISCHARGE NOTE SERVICE DATE: 01/08/2021 SERVICE TIME: 1230 LOS: 2 days Admission Date: 01/06/2021 DISCHARGE ARRANGEMENT (list agency and phone number) Discharge Arrangement: [facility] [place] [facility] CAREGIVER ASSESSMENT: Caregiver is ready, willing and able to meet the patient's needs as recommended by the inter-professional team:: No Does the patient have an acute stroke diagnosis, or has the patient had a stroke during this admission?: No Patient's transition needs and plan for meeting these needs: pt to dc to [facility] HANDOFF COMMUNICATION: Handoff to: Primary Care Physician Primary Care Physician Name/Phone: Dr. 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: [place] Destination: [facility] Financial Care Management Responsibility: None ADDITIONAL CONTACT RESOURCES: none Discharge Information Row Name Admission (Current) from 01/06/2021 [id number] Caregiver is ready, willing and able to meet the patient's needs as recommended by the inter-professional team:: No Does the patient have an acute stroke diagnosis, or has the patient had a stroke during this admission?: No Needs Prior to Discharge: Ready for Discharge Transportation Arrangements: Ambulance/[facility] Agency and Phone #:: [facility] [phone] Date of Trip: 01/08/21 Time of Trip: 1630 Type of Service: BLS Non-emergency Is Patient Medicaid Pending?: No Discussion of financial coverage occurred with: 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 BLS transport arranged through [facility] for 1630. Bedside nurse aware, DC packet left at nurse's station. Patient aware of dc plans and is agreeable. SIGNATURE: Trish Gambino RN PATIENT NAME: Charlie Nguyen DATE: January 08, 2021 TIME: 12:31 PM PAGER/CONTACT #: [phone] Normal [facility] CBCon 01-08-2021 Absolute nRBC <0.01 Normal <0.01 [facility] Erythrocyte distribution width (RBC) [Ratio] 15.0 % Normal 11.5-15.0 [facility] Hematocrit (Bld) [Volume fraction] 33.9 % Low 36.0-46.0 [facility] Hemoglobin (Bld) [Mass/Vol] 10.6 g/dL Low 11.5-15.5 [facility] MCH 30.7 pG Normal 26.0-34.0 [facility] MCHC (RBC) [Mass/Vol] 31.3 g/dL Normal 30.5-36.0 [facility] MCV (RBC) [Entitic vol] 98.3 fL Normal 80.0-100.0 [facility] Platelet mean volume (Bld) [Entitic vol] 10.9 fL Normal 9.0-12.7 [facility] Platelets (Bld) [#/Vol] 147 10*3/uL Low 150-400 [facility] RBC (Bld) [#/Vol] 3.45 10*6/uL Low 3.90-5.20 [facility] WBC (Bld) [#/Vol] 5.81 10*3/uL Normal 3.70-11.00 [facility] CNDSon 01-08-2021 [facility] HNO ID: [id number] Author: Jasen Ewing DO Service: Orthopaedic Surgery [...] the patient's care with the resident. Signature: uKrtis Danielson MD Service Date: 01/10/2021 Service Time: [...] stay. She was stable for [facility] to [facility]. Complete and comprehensive discharge instructions were [...] Patient Condition @ Discharge: Stable Discharge Disposition: [facility] PHYSICAL EXAM (CHOOSE FIRST BLANK IF [...] trough, ESR, CRP [facility] [phone] vancomycin (VANCOCIN) 1.25 g Inject 1.25 g intravenously q 24 HR. Qty: 9000 mL Refills: 0 Comments: Needs CBC w/ diff, CMP, vancomycin trough, ESR, CRP every Thursday faxed to [facility] at [phone] pregabalin (LYRICA) 100 mg Take 100 mg [...] mouth twice daily. (more content not included)... [facility] CONSULTon 01-08-2021 CONSULT HNO ID: [id number] Author: Milton Fernandez MD Service: General Internal [...] scheduled. SW for dc planning-plan dc to [facility] Await pending labs Thank you for [...] Discussed with Dr Fernandez SIGNATURE: Jan Fernandez APRN.DOCK HAND DATE: January 08, 2021 TIME: 6:11 AM I have reviewed the above note obtained and documented by the [employer]. I have discussed the case and management of the patient's care. The following comments revise or confirm relevant bey components of the note. Milton Fernandez MD 10:16 PM [facility] NURSING PROGon 01-08-2021 NURSING PROG HNO ID: [id number] Author: Turner Patten RN Service: Nursing Author Type: Registered Nurse Type: Nursing Progress Note Filed: 01/08/2021 3:01 PM Note Text: Nursing Progress Note Patient Name: Charlie Nguyen Patient Location: [facility]-464-1 Daily Note:Assessment as charted. Patient denies any chest pain or shortness of breath. Goal for the day is to increase mobility and control pain. Bed in low position, bed alarm on, call light in reach. Will continue to monitor. 1459- Report called to [facility]. This note was completed by: Turner Patten [facility] NURSING PROG HNO ID: [id number] Author: Mora Thayer, RN Service: Nursing Author Type: Registered Nurse Type: Nursing Progress Note Filed: 01/08/2021 6:58 AM Note Text: Nursing Progress Note Patient Name: Charlie Nguyen Patient Location: [place] [address] [address] Daily Note:0428 Single lumen PICC with total occlusion. Cath eric injection started. 0450 Cath eric completed. Line clamped and labeled, Do Not Flush, cathflo in place. Will return in 2 hours to attempt to aspirate 0650 Attempted to aspirate from PICC without success. Niru Fernandez CNP here, states will order second dose of cathflo This note was completed by: Mora Thayer [facility] Renal Function Panelon 01-08 Albumin [Mass/Vol] 3.1 g/dL Low 3.9-4.9 [facility] Anion gap [Moles/Vol] 8 mmol/L Low 9-18 [facility] Calcium [Mass/Vol] 8.1 mg/dL Low 8.5-10.2 [facility] Chloride [Moles/Vol] 104 mmol/L Normal 97-105 [facility] CO2 [Moles/Vol] 25 mmol/L Normal 22-33 [facility] Creatinine [Mass/Vol] 0.68 mg/dL Normal 0.58-0.96 [facility] eGFR- Amer. >60 Normal [facility] eGFR-All Other Races >60 Normal [facility] Comment on above: Result Comment: eGFR (Estimated [...] GFR. Glucose [Mass/Vol] 109 mg/dL High 74-99 [facility] Phosphate [Mass/Vol] 2.6 mg/dL Low 2.7-4.8 [facility] Potassium [Moles/Vol] 3.8 mmol/L Normal 3.7-5.1 [facility] Sodium [Moles/Vol] 137 mmol/L Normal 136-144 [facility] Urea nitrogen [Mass/Vol] 14 mg/dL Normal 7-21 [facility] THERAPY NTon 01-08-2021 THERAPY NT HNO ID: [id number] Author: Kris Lamb OT/L Service: Occupational Therapy Author Type: Occupational Therapist Type: Therapy (PT/OT/Speech/Resp) Filed: 01/08/2021 1:13 PM Note Text: Occupational Therapy Evaluation SERVICE DATE: 01/08/2021 SERVICE TIME: 1045 to 1110 ROOM: [place] [address] Recommended Discharge Disposition: ECF Recommended Discharge Disposition [...] Home Environment Patient Lives With: Facility Care ([facility]) Assistance Available: 24 Hour Entry To [...] daily living (ADL);Reduced mobility-other Interventions Provided: Evaluation;Self Longterm Management (60778) $ Evaluation-Low (99489) Billed Units: 1 unit Self Longterm Management (97924) Treatment Minutes: 10 $ Self Longterm Management (60618) Billed Units: 1 unit Training AND education provided in: Benefits of in-hospital mobility, Bed mobility, Discharge planning, Fu (more content not included)... [facility] THERAPY NT HNO ID: [id number] Author: Janis Palafox, PT Service: Physical Therapy Author Type: Physical Therapist Type: Therapy (PT/OT/Speech/Resp) Filed: 01/08/2021 1:10 PM Note Text: Physical Therapy Evaluation SERVICE DATE: 01/08/2021 SERVICE TIME: 1121 to 1205 ROOM: [place] [address] Recommended Discharge Disposition: Subacute/SNF Recommended Discharge Disposition Comments: pt opperating at new baseline with residential hopes of working towards improved mobility out [...] Management;Meals Prior Functional Level Comments: reporting from [employer]; reporting pivot transfers only [...] Skilled Need Interventions Provided: Evaluation;Therapeuti c Activity (55511) $ Evaluation-Low (65488) Billed Units: 1 unit Therapeutic Activity (20093) Treatment Minutes: 25 $ Therapeutic Activity (75262) Billed Units: 2 units Training AND education [...] details for this therapy evaluation/treatment. SIGNATURE: Janis Palafox, PT PATIENT NAME: Charlie Nguyen DATE: January 08, 2021 TIME: 1:10 PM [facility] Vancomycinon 01-08-2021 Vancomycin 15.9 ug/mL Normal 10.0-20.0 [facility] Comment on above: Result Comment: Refe rence ranges and high/low indicator flags are provided as general guidelines only. The treating physician must determine appropriate target levels/dosing based on the specific clinical situation. CONSULT PROGon 01-07-2021 CONSULT PROG HNO ID: [id number] Author: Kelvin Espino MD Service: Infectious Disease Author Type: Physician Type: Consult Progress Note Filed: 01/07/2021 11:11 AM Note Text: Interval History Seeing patient for recent right knee PJI s/p washout 12/19/20 with negative cultures. Discharged to rehab on Vanco/Cefepime thru 01/30/21. Now admitted with fever and increased right knee pain at [facility]. Has been afebrile since admission. Synovial fluid [...] right knee. Kelvin Espino MD [facility] [phone] [facility] Coronavirus 2019on SARS-CoV-2 (COVID-19) RNA TANVIR+probe Ql (Unsp spec) UPPER RESPIRATORY TRACT SWAB Normal [facility] Comment on above: Performed By: #### C OVID ####[facility] [place], [place] [phone] SARS-CoV-2 (COVID-19) RNA TANVIR+probe Ql (Unsp spec) Negative for COVID19 (SARS CoV2) by RT-PCR or equivalent method. Normal Negative for COVID19 (SARS CoV2) by RT-PCR or equivalent method. [facility] Comment on above: Result Comment: This test was developed and its performance characteristics determined by [facility]'s [facility] [place]. This test has been authorized by FDA under an Emergency Use Authorization (EUA). This test has been validated in accordance with the FDA's Guidance Document "Policy for Diagnostics Testing in Laboratories Certified to Perform High Complexity Testing under CLIA prior to Emergency use Authorization for Coronavirus Disease 2019 during the Public Health Emergency" issued on July 30, 2019. Test performed by [facility], [facility] [place], [address], [place] [address]. Performed By: #### C OVID ####[facility], [place] [phone] NURSING PROGon 01-07-2021 NURSING PROG HNO ID: [id number] Author: Bigg [address] RN Service: Nursing Author Type: Registered Nurse Type: Nursing Progress Note Filed: 01/08/2021 8:43 AM Note Text: Nursing Progress Note Patient Name: Charlie Nguyen Patient Location: [facility]-464/[facility]-464-1 Daily Note: 1900 Assumed care of patient. Received bedside report from off-going RN. Patient denies any needs at this time. Call rose within reach, bed low and locked, bed alarm on, safety maintained. 2019 Assessment and vitals as charted. Patient denies [...] This note was completed by: Bigg St [facility] NURSING PROG HNO ID: [id number] Author: Mariela Campa RN Service: ? Author Type: Registered Nurse Type: Nursing Progress Note Filed: 01/07/2021 9:42 AM Note Text: 01/07/2021 0600 Pt has really been sleeping all night. She can barely open her eyes but then she'll C/O the IV pump alarming. [facility] NURSING PROG HNO ID: [id number] Author: Turner Patten RN Service: Nursing Author Type: Registered Nurse Type: Nursing Progress Note Filed: 01/07/2021 11:59 AM Note Text: Nursing Progress Note Patient Name: Charlie Nguyen Patient Location: [facility]-464-1 Daily Note:Assessment as charted. Patient denies any chest pain or shortness of breath. Patient is lethargic. Goal for the day is to increase mobility and control pain. Bed in low position, bed alarm on, call light in reach. Will continue to monitor. This note was completed by: Turner Patten [facility] NURSING PROG HNO ID: [id number] Author: Mariela Campa RN Service: ? Author Type: Registered Nurse Type: Nursing Progress Note Filed: 01/07/2021 3:31 AM Note Text: 01/06/2021 2000 Assumed care of pt. She is oddly aggravated when you go into her room , julieta if it is frequently. 01/07/2021 0000 Assessment as charted. Sleeping soundly. [facility] ALLIED [place]on 01-06-2021 ALLIED HEALTH HNO ID: [id number] Author: RT Esther(Farideh) Service: Radiology Author Type: Clinical Laboratory Manager Type: Allied Health Filed: 01/06/2021 7:28 PM [...] IV DATA: Not applicable SIGNED BY: RT Esther(Farideh) January 06, 2021 7:28 PM [facility] HNO ID: [id number] Author: RT Lakisha(R) Service: Radiology Author Type: Clinical Laboratory Manager Type: Allied Health Filed: 01/06/2021 10:26 AM [...] RT Lakisha(R) January 06, 2021 10:26 AM [facility] Blood Cultureon 01-06-2021 Bacteria identified Cx Nom (Bld) Sp. Request/Comment: - The blood culture bottles are underfilled. Adding volume lower or higher than the 8 to 10 mL per bottle, which is the manufacturers recommended volume, may adversely affect the recovery and/or detection of organisms. 3.0 CC Culture Result - No growth 5 days [facility] Comment on above: Performed By: #### B LCUL ####[facility], [place] [phone] Bacteria identified Cx Nom (Bld) Sp. Request/Comment: - The blood culture bottles are underfilled. Adding volume lower or higher than the 8 to 10 mL per bottle, which is the manufacturers recommended volume, may adversely affect the recovery and/or detection of organisms. 0.1 CC Culture Result - No growth 5 days [facility] Comment on above: Performed By: #### B LCUL ####[facility] [place], [place] [phone] Body Fluid Cell Count with D ifferentialOrdered By: Nica Nolasco on 08-08-2021 Fluid Type SYNOVIAL [facility] Work Phone: [phone] Nucl Cell, Fluid 945 {cells}/uL [facility] Work Phone: 1 Test Performed by [address], [place] [address] [facility] Work Phone: 1 [facility] Work Phone: 1 Body Fluid CrystalOrdered By : Nica Nolasco on 01-06-2021 Crystals LM Nom (Urine sed) Negative [facility] Work Phone: 1 Fluid Type Synovial [facility] Work Phone: 1 Test Performed by [facility], [facility] [place] [address] [facility] Work Phone: [facility] Work Phone: [phone] C-Reactive Proteinon 021 C-Reactive Protein 7.9 mg/dL High 0.0-0.9 [facility] CBC and Differentialon 01-06 Abs Baso 0.00 k/uL Normal <0.11 [facility] Abs [place] 0.00 k/uL Normal <0.87 [facility] Abs Neut 3.46 k/uL Normal 1.45-7.50 [facility] ANC(includeSEG+BAND) 3.46 k/uL Normal [facility] Basophilic stippling LM Ql (Bld) Occasional Normal [facility] Basophils/100 WBC (Bld) 0.0 % Normal H [facility] DTYPE Manual Diff Normal [facility] Eosinophils (Bld) [#/Vol] 0.85 10*3/uL High <0.46 [facility] Eosinophils/100 WBC (Bld) 15.0 % Normal [facility] Erythrocyte distribution width (RBC) [Ratio] 15.2 % High 11.5-15.0 [facility] Hematocrit (Bld) [Volume fraction] 40.5 % Normal 36.0-46.0 [facility] Hemoglobin (Bld) [Mass/Vol] 12.7 g/dL Normal 11.5-15.5 [facility] Left Shift Present Normal [facility] Lymphocytes (Bld) [#/Vol] 1.25 10*3/uL Normal 1.00-4.00 [facility] Lymphocytes/100 WBC (Bld) 22.0 % Normal [facility] Lymphocytes/100 WBC (Bld) 1.0 % Normal [facility] MCH 31.3 pG Normal 26.0-34.0 [facility] MCHC (RBC) [Mass/Vol] 31.4 g/dL Normal 30.5-36.0 [facility] MCV (RBC) [Entitic vol] 99.8 fL Normal 80.0-100.0 H [facility] Monocytes/100 WBC (Bld) 0.0 % Normal [facility] Myelo% 1.0 % Normal [facility] Neutrophils/100 WBC (Bld) 61.0 % Normal [facility] Platelet Estimate Platelet estimate adequate Normal [facility] Platelet mean volume (Bld) [Entitic vol] 10.0 fL Normal 9.0-12.7 [facility] Platelets (Bld) [#/Vol] 193 10*3/uL Normal 150-400 [facility] Polychromasia Slight Normal [facility] RBC (Bld) [#/Vol] 4.06 10*6/uL Normal 3.90-5.20 [facility] Red Cell Morph SEE COMMENT Normal [facility] Comment on above: Result Comment: Unre markable WBC (Bld) [#/Vol] 5.67 10*3/uL Normal 3.70-11.00 [facility] CONSULTon 01-06-2021 CONSULT HNO ID: [id number] Author: Kelvin Espino MD Service: Infectious Disease Author Type: Physician Type: Consults Filed: 01/06/2021 4:21 PM Note Text: BRIEF ID CONSULT NOTE Pt seen and examined. Full note dictated. Impression 1. 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 Discharged on Cefepime/vanco thru 01/30/21 (6 weeks). -- now admitted with fever at [facility] and worsening right knee pain. -- Sent to OSH where arthrocentesis was performed with 945 WBC. No cultures of synovial fluid, blood, or urine sent. Recommendation 1. Cont. Vanco and Cefepime for now. 2. Will send blood and urine cultures for completeness. 3. Await Ortho plan concerning knee. 4. Will follow. Kelvin Espino MD [facility] [phone] Normal [facility] CONSULT HNO ID: [id number] Author: Kelvin Espino MD Service: Infectious Disease Author Type: Physician Type: Consults Filed: 01/07/2021 8:17 AM Note Text: [facility] Consultation CHARLIE NGUYEN [facility]#: [id number] PATIENT TYPE: LOCATION: [address] [place] [address] ATTENDING PHYSICIAN: KURTIS DANIELSON ORIGINATOR: Kelvin Espino [...] her rehab facility and [place] [facility] [place] [place]. She had an arthrocentesis performed at that time, which revealed 985 white cells. It does not appear that fluid was sent for Gram stain or culture. The patient was transferred to [facility]. She has been continued on her [...] No cultures were performed upon arrival to [facility]. Chest x-ray showed no infiltrates. IMPRESSION [...] g IV (more content not included)... Normal [facility] CONSULT HNO ID: [id number] Author: Milton Fernandez MD Service: General Internal [...] 1 D (more content not included)... Normal [facility] CONSULT HNO ID: [id number] Author: Yoni Forrest DO Service: Orthopaedic Surgery Author Type: Resident Type: Consults Filed: 01/06/2021 6:01 PM Note Text: ORTHOPAEDIC SURGERY CONSULT Patient Name: Charlie Nguyen Account #: Data Unavailable Admission Date: 01/06/2021 Date of Evaluation: January 06, 2021 Time of Evaluation: 6:53 AM Reason for Consult: Right septic knee Requesting Physician: [facility] Primary Care Physician: Moreno Oates MD IMPRESSION [...] receiving vancomycin and cefepime. Knee aspiration at [facility] 985 total nucleated cells. NPO. Hold all AC for possible surgical intervention. 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 SUBJECTIVE Ms. Nguyen is [...] peacefully upon entering room. She reported to [facility] ED where aspiration resulted in 985 total nucleated cells and she was then transferred to [place]. Last dose of eliquis 8 PM. Patient [...] (NaCl) 0.9% injecti (more content not included)... [facility] COVID and Resp PCR Panelon 0 01-06-2021 SARS-CoV-2 (COVID-19) RNA TANVIR+probe Ql (Unsp spec) COVID and Resp PCR Panel --> Status: F NEGATIVE: No targets were detected by the [employer] Upper Respiratory Pathogens PCR Panel. _ Expected Result: Not Detected The [employer] Upper Respiratory Pathogens PCR Panel can detect [...] management decisions. This assay was developed by [employer] and distributed under an Emergency Use Authorization (EUA) granted by the FDA for the qualitative detection of SARS-CoV-2 nucleic acid. Provider and patient fact sheets can be found at https://www.fda.gov/m edia/100656/download and https://www.fda.gov/m edia/632765/download. Respiratory Pathogens PCR Panel. _ Expected Result: Not Detected The [facility] Upper Respiratory Pathogens PCR Panel can detect [...] management decisions. This assay was developed by [employer] and distributed under an Emergency Use Authorization (EUA) granted by the FDA for the qualitative detection of SARS-CoV-2 nucleic acid. Provider and patient fact sheets can be found at https://www.fda.gov/m edia/962682/download and https://www.fda.gov/m edia/534672/download. Normal [facility] Comment on above: Performed By: #### B FRP2 ####[facility] [address] [place] [address] Cell Count,Body Fluidon Nucleated Cells 945 {cells}/uL Normal [facility] Comment on above: Performed By: #### D IFBF, FLDCC, CRSTL #### [facility] [address] [place], [place] Fluid Type SYNOVIAL Normal [facility] Comment on above: Performed By: #### D IFBF, FLDCC, CRSTL #### [facility] [address] [place] [address] Comp Metabolic Panelon 01-06 Albumin [Mass/Vol] 3.7 g/dL Low 3.9-4.9 [facility] ALP [Catalytic activity/Vol] 119 U/L Normal 34-123 [facility] ALT [Catalytic activity/Vol] 11 U/L Normal 7-38 [facility] Anion gap [Moles/Vol] 12 mmol/L Normal 9-18 [facility] AST [Catalytic activity/Vol] 27 U/L Normal 13-35 [facility] Bilirubin [Mass/Vol] 0.3 mg/dL Normal 0.2-1.3 [facility] Calcium [Mass/Vol] 8.2 mg/dL Low 8.5-10.2 [facility] Chloride [Moles/Vol] 105 mmol/L Normal 97-105 [facility] CO2 [Moles/Vol] 22 mmol/L Normal 22-33 [facility] Creatinine [Mass/Vol] 0.65 mg/dL Normal 0.58-0.96 [facility] eGFR- Amer. >60 Normal [facility] eGFR-All Other Races >60 Normal [facility] Comment on above: Result Comment: eGFR (Estimated [...] GFR. Glucose [Mass/Vol] 80 mg/dL Normal 74-99 [facility] Potassium [Moles/Vol] 4.4 mmol/L Normal 3.7-5.1 [facility] Protein [Mass/Vol] 7.4 g/dL Normal 6.3-8.0 [facility] Sodium [Moles/Vol] 139 mmol/L Normal 136-144 [facility] Urea nitrogen [Mass/Vol] 8 mg/dL Normal 7-21 [facility] Complete Urinalysison 2020 Appearance (U) Clear Normal Clear [facility] Comment on above: Result Comment: . Performed By: #### C UA2 ####[facility] [id number] [place], [place] Bilirubin,Urine Negative Normal Negative [facility] Comment on above: Result Comment: . Performed By: #### C UA2 ####[facility] [id number] [place], [place] Color (U) Colorless Normal Lt. Yellow [facility] Comment on above: Result Comment: . Performed By: #### C UA2 ####[address], [place] Glucose Ql (U) Normal Normal Normal (<70) [facility] [place] [facility] Comment on above: Result Comment: . Performed By: #### C UA2 ####[facility] [id number], [place] Ketone,Urine Negative Normal Negative [facility] Comment on above: Result Comment: . Performed By: #### C UA2 ####[facility] [place], [place] Leukocytes,Urine Negative Normal Negative [facility] Comment on above: Result Comment: . Performed By: #### C UA2 ####[place] [address] [place], [place] Nitrites,Urine Negative Normal Negative [facility] Comment on above: Result Comment: . Performed By: #### C UA2 ####[place] [address] [place], [place] Occult Blood,Urine Negative Normal Negative [facility] Comment on above: Result Comment: . Performed By: #### C UA2 ####[place] [address] [place], [place] pH,Urine 5.5 Normal 5.0-8.0 [facility] Comment on above: Result Comment: . Performed By: #### C UA2 ####[place] [address] [address] [place], [place] Specific Lodge,Urine 1.007 Normal 1.005 - 1.030 [facility] Comment on above: Result Comment: . Performed By: #### C UA2 ####[place] [address] . [place], [place] Total Protein,Urine Negative Normal Negative [facility] Comment on above: Result Comment: . Performed By: #### C UA2 ####[place] [address] [place], [place] Urobilinogen,Urine Normal Normal Normal (0-1) [facility] Comment on above: Result Comment: . Performed By: #### C UA2 ####[place] [address] [place], [place] Crystals,Body Fluidon 2020 Crystals LM Nom (Urine sed) Negative Normal [facility] Comment on above: Performed By: #### D IFBF, FLDCC, CRSTL #### [facility] [address] [place], [place] Fluid Type Synovial Normal [facility] Comment on above: Performed By: #### D IFBF, FLDCC, CRSTL #### [facility] [address] [place] [address] Differential, Body FluidOrde red By: Nica Nolasco on 01-06-2021 Differential Count 100 [facility] Work Phone: Eosinophils/100 WBC (Bld) 4 % [facility] Work Phone: Lymphocytes/100 WBC (Bld) 4 % [facility] Work Phone: [phone] Macrophage count 1 % [facility] Work Phone: Monocytes/100 WBC (Bld) 9 % [facility] Work Phone: Neutrophils/100 WBC (Bld) 82 % [facility] Work Phone: Test Performed by [address], [facility] [place] [address] [facility] Work Phone: [facility] Work Phone: Differential,Body Fluidson 0 01-06-2021 Eosinophils/100 WBC (Bld) 4 % Normal [facility] Comment on above: Performed By: #### D IFBF, FLDCC, CRSTL ####[employer] [address] [place] [address] Lymphocytes/100 WBC (Bld) 4 % Normal [facility] Comment on above: Performed By: #### D IFBF, FLDCC, CRSTL ####[employer] [address] [place] [address] Macrophages 1 % Normal [facility] Comment on above: Performed By: #### D IFBF, FLDCC, CRSTL ####[employer] [address] [place] [address] Monocytes/100 WBC (Bld) 9 % Normal [facility] Comment on above: Performed By: #### D IFBF, FLDCC, CRSTL ####[employer] [id number] [place] [address] Neutrophils/100 WBC (Bld) 82 % Normal [facility] Comment on above: Performed By: #### D IFBF, FLDCC, ARMEN ####[facility] [place] [address] Cells Counted for Diff 100 Normal [facility] Comment on above: Performed By: #### D JASON BARROS CRSTL ####[place] [address] [place] [address] HISTORY PHYSICALon 1 HISTORY PHYSICAL HNO ID: [id number] Author: Yoni Forrest DO Service: Orthopaedic Surgery [...] patient's care with the resident. Signature: Kurtis Danieslon MD Service Date: 01/07/2021 Service Time: 7:41 [...] receiving vancomycin and cefepime. Knee aspiration at [facility] 985 total nucleated cells. NPO. Hold all AC for possible surgical intervention. 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 SUBJECTIVE Ms. Nguyne is a 65F right knee pain s/p [...] peacefully upon entering room. She reported to [facility] ED where aspiration resulted in 985 total nucleated cells and she was then transferred to [place]. Last dose of eliquis 8 PM. Patient [...] (SEROQUEL) 50 mg (more content not included)... [facility] NURSING PROGon 01-06-2021 NURSING PROG HNO ID: [id number] Author: Bambi Palmer RN Service: ? Author Type: Registered Nurse Type: Nursing Progress Note Filed: 01/06/2021 2:31 PM Note Text: Nursing Progress Note Patient Name: Charlie Nguyen Patient Location: [place] [address] [address]1 Daily Note: 0755 Patient awake in bed, [...] This note was completed by: Bambi Palmer [facility] NURSING PROG HNO ID: [id number] Author: Jan Whitehead, RN Service: Nursing Author Type: Registered Nurse Type: Nursing Progress Note Filed: 01/06/2021 6:41 AM Note Text: Nursing Progress Note Patient Name: Charlie Nguyen Patient Location: [place] [address]/[facility] Daily Note: 0400 Patient arrived to floor [...] This note was completed by: Jan Whitehead [facility] STAIN GRAMon 01-06-2021 STAIN GRAM STAIN GRAM --> Status: F Few polymorphonuclear cells/lpf. No organisms seen. No organisms seen. Normal [facility] Comment on above: Performed By: #### C Anitra CORONA/PADILLA ####[facility] [place] [address] UrinalysisOrdered By: Rabia Palomares on 01-06-2021 Appearance (U) Clear Clear NA [employer] Work Phone: [phone] Comment on above: . Bilirubin Urine Negative Negative mg/dL [employer] Work Phone: [phone] Comment on above: . Color (U) Colorless Lt. Yellow NA [employer] Work Phone: [phone] Comment on above: . Glucose, Ur Normal Normal (<70) mg/dL [employer] Work Phone: [phone] Comment on above: . Ketones Ql (U) Negative Negative mg/dL [employer] Work Phone: [phone] Comment on above: . LEUKOCYTES, UA Negative Negative Simon/uL [employer] Work Phone: [phone] Comment on above: . Nitrite, Urine Negative Negative NA [employer] Work Phone: [phone] Comment on above: . Occult Blood,Urine Negative Negative mg/dL [employer] Work Phone: [phone] Comment on above: . pH (U) 5.5 [pH] [employer] Work Phone: [phone] Comment on above: . Specific Lodge, Urine 1.007 S [facility] Work Phone: [phone] Comment on above: . Total Protein, Urine Negative Negativ e mg/dL [employer] Work Phone: [phone] Comment on above: . Urobilinogen, Urine Normal Normal ( 0-1) mg/dL [employer] Work Phone: [phone] Comment on above: . Test Performed by [facility], [address] [place] [address] [employer] Work Phone: [phone] [employer] Work Phone: [phone] XR CHEST 1V FRONTAL PORTon 0 01-06-2021 [...] Jan 06 2021 10:51AM EST [id number] N [facility] XR KNEE 2V AP/LAT RTon 01-06 [...] Jan 06 2021 7:48PM EST [id number] N [facility] C-REACTIVE PROTEINOrdered By : Kian Palomares on 01-05-2021 CRP [Mass/Vol] 64.3 mg/L High 0.0 - 6.0 mg/L [employer] Work Phone: Comment on above: . C-Reactive Proteinon 021 CRP [Mass/Vol] 64.3 mg/L High 0.0-6.0 [employer] Comment on above: Result Comment: . Performed By: #### C RP2, PCAL, CMP3M, LIPA4, HEMDF, ESR #### [employer] [facility] [address] [place] [address] CBC auto differentialOrdered By: Kian Palomares on 01-05-2021 Absolute Baso # 0.0 10*3/uL 0.0 - 0.2 10*3/uL [employer] Work Phone: Absolute Neut # 4.3 10*3/uL 1.8 - 7.0 10*3/uL [employer] Work Phone: [phone] Hemoglobin.gastrointesti nal spec 1 Ql (Stl) 11.3 g/dL Low 11.7 - 16.0 g/dL [employer] Work Phone: [phone] MCHC (RBC) [Mass/Vol] 32.9 % 32.0 - 36.0 % [employer] Work Phone: [phone] Platelet distribution width (Bld) [Ratio] 15.0 % High 11.5 - 14.5 % [facility] Work Phone: CR Chest Portableon 01-06-20 21 CR Chest Portable Patient Name: CHARLIE NGUYEN Diagnostic Radiology ACCESSION EXAM DATE/TIME PROCEDURE ORDERING PROVIDER [id number] 01/05/2021 20:28 EDT CR Chest Portable [id number] KIAN SILVA CPT code 87109 Reason For Exam (CR Chest Portable) sepsis [...] Transcribed Date and Time: 01/05/2021 8:49 Normal [facility] CR Knee 3 Views Righton CR Knee 3 Views Right Patient Name: CHARLIE FARNSWORTH Diagnostic Radiology ACCESSION EXAM DATE/TIME PROCEDURE ORDERING PROVIDER [id number] 01/05/2021 20:28 EDT CR Knee 3 Views Right [id number] KIAN SILVA CPT code 73029 Reason For Exam (CR Knee 3 Views [...] Transcribed Date and Time: 01/05/2021 8:45 Normal [facility] CTA Chest W WO (PE study)Ord ered By: Kian Palomares on 01-05-2021 Patient Name: CHARLIE NGUYEN Computed Tomography ACCESSION EXAM DATE/TIME PROCEDURE ORDERING PROVIDER [id number] 01/05/2021 22:12 EDT CTA Chest w/ + w/o [id number] -PALOMARES, Contrast KIAN CPT code 44798 Q9967 Reason For Exam (CTA Chest w/ [...] Time: 01/05/2021 10:19 [facility] Work Phone: Rodolfo, [employer] Incoming Radiology Results From [facility] - 01/05/2021 10:34 PM EDT Patient Name: CHARLIE NGUYEN Computed Tomography ACCESSION EXAM DATE/TIME PROCEDURE ORDERING PROVIDER [id number] 01/05/2021 22:12 EDT CTA Chest w/ + w/o [id number] Araseli SILVA CPT code 73652 Q9967 Reason For Exam (CTA Chest w/ [...] VLADIMIR Transcribed Date and Time: 01/05/2021 10:19 [facility] Work Phone: [facility] Work Phone: CTA Chest w/ + w/o Contrasto n 01-05-2021 CTA Chest w/ + w/o Contrast Patient Name: CHARLIE NGUYEN Computed Tomography ACCESSION EXAM DATE/TIME PROCEDURE ORDERING PROVIDER [id number] 01/05/2021 22:12 EDT CTA Chest w/ + w/o [id number] Araseli SILVA CPT code 20304 Q9967 Reason For Exam (CTA Chest w/ [...] Transcribed Date and Time: 01/05/2021 10:19 Normal [facility] Comp Panel with Mg Reflexon 01-05-2021 ALT [Catalytic activity/Vol] 12 U/L Normal 0-34 [facility] Comment on above: Result Comment: The ALT test is performed by an updated assay method. Please note that the reference intervals have been changed and are now sex specific. Performed By: #### C RP2, PCAL, CMP3M, LIPA4, HEMDF, ESR #### [facility] [address] [place], [place] Calcium [Mass/Vol] 8.2 mg/dL Low 8.4-10.4 [facility] Comment on above: Performed By: #### C RP2, PCAL, CMP3M, LIPA4, HEMDF, ESR #### [facility] [address] [place], [place] Glucose [Mass/Vol] 109 mg/dL High 70-100 [facility] Comment on above: Performed By: #### C RP2, PCAL, CMP3M, LIPA4, HEMDF, ESR #### [facility] [address] [place], [place] Urea nitrogen [Mass/Vol] 16 mg/dL Normal 7-20 [facility] Comment on above: Performed By: #### C RP2, PCAL, CMP3M, LIPA4, HEMDF, ESR #### [facility] [address] [place], [place] ALP [Catalytic activity/Vol] 108 U/L Normal 38-126 [facility] Comment on above: Performed By: #### C RP2, PCAL, CMP3M, LIPA4, HEMDF, ESR #### [facility] [address] [place], [place] Anion gap [Moles/Vol] 5 mmol/L Normal 3-13 [facility] Comment on above: Performed By: #### C RP2, PCAL, CMP3M, LIPA4, HEMDF, ESR #### [address] AST [Catalytic activity/Vol] 52 U/L High 15-46 [facility] Comment on above: Performed By: #### C RP2, PCAL, CMP3M, LIPA4, HEMDF, ESR #### [place] [address] [place], [place] Bilirubin [Mass/Vol] 0.4 mg/dL Normal 0.2-1.3 [facility] Comment on above: Performed By: #### C RP2, PCAL, CMP3M, LIPA4, HEMDF, ESR #### [place] [address] [place], [place] CO2 [Moles/Vol] 23 mmol/L Normal 22-30 [facility] Comment on above: Performed By: #### C RP2, PCAL, CMP3M, LIPA4, HEMDF, ESR #### [place] [address] [place], [place] Creatinine [Mass/Vol] 0.83 mg/dL Normal 0.52-1.25 [facility] Comment on above: Performed By: #### C RP2, PCAL, CMP3M, LIPA4, HEMDF, ESR #### [place] [address] [place], [place] GFR/1.73 sq M.predicted among blacks MDRD (S/P/Bld) [Vol rate/Area] 86.0 mL/min/{1.73_m2} Normal >60 [facility] Comment on above: Performed By: #### C RP2, PCAL, CMP3M, LIPA4, HEMDF, ESR #### [place] [address] [place], [place] GFR/1.73 sq M.predicted among non-blacks MDRD (S/P/Bld) [Vol rate/Area] 74.2 mL/min/{1.73_m2} Normal >60 [facility] Comment on above: Result Comment: KDIG [...] RP2, PCAL, CMP3M, LIPA4, HEMDF, ESR #### [address] Protein [Mass/Vol] 6.9 g/dL Normal 6.3-8.2 [facility] Comment on above: Performed By: #### C RP2, PCAL, CMP3M, LIPA4, HEMDF, ESR #### [address] Potassium [Moles/Vol] 4.3 mmol/L Normal 3.5-5.1 [facility] Comment on above: Performed By: #### C RP2, PCAL, CMP3M, LIPA4, HEMDF, ESR #### [address] Albumin [Mass/Vol] 3.4 g/dL Low 3.5-5.0 [facility] Comment on above: Performed By: #### C RP2, PCAL, CMP3M, LIPA4, HEMDF, ESR #### [address] Chloride [Moles/Vol] 105 mmol/L Normal 98-107 [facility] Comment on above: Performed By: #### C RP2, PCAL, CMP3M, LIPA4, HEMDF, ESR #### [facility] [employer] [facility] [address] [place] [address] Sodium [Moles/Vol] 132 mmol/L Low 135-145 [facility] Comment on above: Performed By: #### C RP2, PCAL, CMP3M, LIPA4, HEMDF, ESR #### [facility] [facility] [address] [place] [address] Comprehensive Metabolic Pane l w/ Reflex to MGOrdered By: Kian Palomares on 01-05-2021 Albumin [Mass/Vol] 3.4 g/dL Low 3.5 - 5.0 g/dL [employer] Work Phone: [phone] ALP (Bld) [Catalytic activity/Vol] 108 U/L 38 - 126 U/L [employer] Work Phone: [phone] ALT [Catalytic activity/Vol] 12 U/L 0 - 34 U/L [employer] Work Phone: [phone] Comment on above: The ALT test is perf ormed by an updated assay method. Please note that the reference intervals have been changed and are now sex specific. Anion gap [Moles/Vol] 5 mmol/L 3 - 13 mmol/L [employer] Work Phone: [phone] AST [Catalytic activity/Vol] 52 U/L High 15 - 46 U/L [employer] Work Phone: [phone] Bilirubin [Mass/Vol] 0.4 mg/dL 0.2 - 1 .3 mg/dL [employer] Work Phone: [phone] Calcium [Mass/Vol] 8.2 mg/dL Low 8.4 - 10. 4 mg/dL [employer] Work Phone: [phone] Chloride [Moles/Vol] 105 mmol/L 98 - 10 7 mmol/L [employer] Work Phone: [phone] CO2 [Moles/Vol] 23 mmol/L 22 - 30 mmol/L [employer] Work Phone: [phone] Creatinine [Mass/Vol] 0.83 mg/dL 0.52 - 1.25 mg/dL [employer] Work Phone: EGFR IF NonAfrican Iraqi 74.2 mL/min >60 [employer] Work Phone: Comment on above: KDIGO guidelines [...] fraction] 6.9 g/dL 6.3 - 8.2 g/dL [facility] Work Phone: GFR/1.73 sq M.predicted among blacks MDRD (S/P/Bld) [Vol rate/Area] 86.0 mL/min/{1.73_m2} >60 [facility] Work Phone: Glucose [Mass/Vol] 109 mg/dL High 70 - 100 mg/dL [facility] Work Phone: Potassium [Moles/Vol] 4.3 mmol/L 3.5 - 5.1 mmol/L [facility] Work Phone: Sodium [Moles/Vol] 132 mmol/L Low 135 - 145 mmol/L [facility] Work Phone: Urea nitrogen (BldV) [Mass/Vol] 16 mg/dL 7 - 20 mg/dL [facility] Work Phone: ED Provider Noteon ED Provider Note Emergency Department Encounter [facility] EMERGENCY DEPT Patient: Charlie Nguyen : 1955 Date of Evaluation: 01/05/2021 ED Provider: RAH Telles As the [id number], I performed a medical screening history and physical exam on this patient. An N95 and gloves were worn during the entirety of this encounter. HISTORY OF PRESENT ILLNESS In brief, Charlie Nguyen is a 65 y.o. female that presents for right knee pain, fever that started today. Patient had a right knee surgery done on the by Dr. Parrish at [facility]. Patient had an infection in her right knee, and underwent an washout. Patient had a knee replacement approximately 4 years ago, and was found to have a septic joint couple of weeks ago, and underwent washout [facility]. Patient has been on IV antibiotics at her rehab facility. Patient states that today, start having worsening pain and a fever of 102 degrees Fahrenheit. Patient states that the swelling and the pain has been getting worse. Patient denies any nausea, vomiting, lightheadedness, dizziness, chest pain, shortness of breath, numbness or tingling. PHYSICAL EXAM ED Triage Vitals [01/05/21 1910] Enc Vitals Group BP (!) 78/51 Pulse [...] ED as soon as available. RAH Telles [employer] RAH Telles 01/05/211920 Emergency Department Encounter [facility] EMERGENCY DEPT Patient: Charlie Nguyen : [...] the pain is a burning intermittent 9/10 MARSHALL (Location/Symptom, Timing/Onset, Context/Setting, Quality, Duration, Modifying Factors, [...] otherwise acutely negative except as in the MARSHALL. Past History Past Medical History: Diagnosis Date [...] Physical Activi (more content not included)... Normal [facility] ED Provider Note Emergency Department Encounter [facility] EMERGENCY DEPT Patient: Charlie Nguyen : [...] or pain out of proportion. Focused exam: Oeg-kjs-dxduxakzs in no acute distress. Alert and oriented [...] for STEMI. Patient with left axis deviation. W[place] 167, QRS 92, with a QTC of [...] Patient was discussed with Dr. Danielson at [facility] who accepted patient for admission. Patient [...] dictations but occasionally words are mis-transcribed.) Erika Husdon MD [employer] Erika Hudson MD 01/06/21 0505 Normal [facility] Hemogram w/ Autodiffon 01-05 Abs Baso Cnt 0.0 10*3/uL Normal 0.0-0.2 [facility] Comment on above: Performed By: #### C RP2, PCAL, CMP3M, LIPA4, HEMDF, ESR #### [address] [address] Abs Neutrophile Cnt 4.3 10*3/uL Normal 1.8-7.0 [facility] Comment on above: Performed By: #### C RP2, PCAL, CMP3M, LIPA4, HEMDF, ESR #### [address] [address] Erythrocyte distribution width (RBC) [Ratio] 15.0 % High 11.5-14.5 [facility] Comment on above: Performed By: #### C RP2, PCAL, CMP3M, LIPA4, HEMDF, ESR #### [address] [address] Hemoglobin (Bld) [Mass/Vol] 11.3 g/dL Low 11.7-16.0 [facility] Comment on above: Performed By: #### C RP2, PCAL, CMP3M, LIPA4, HEMDF, ESR #### [place] [address] [address] [place], [place] MCHC 32.9 % Normal 32.0-36.0 [facility] Comment on above: Performed By: #### C RP2, PCAL, CMP3M, LIPA4, HEMDF, ESR #### [place] [address] [place], [place] Hemogram w/ AutodiffOrdered By: Kian Palomares on 01-05-2021 Basophils/100 WBC (Bld) 0.1 % Normal 0.0-2.0 S [facility] Work Phone: Comment on above: Performed By: #### C RP2, PCAL, CMP3M, LIPA4, HEMDF, ESR #### [address] Eosinophils (Bld) [#/Vol] 0.7 10*3/uL High 0.0-0.5 [facility] Work Phone: Comment on above: Performed By: #### C RP2, PCAL, CMP3M, LIPA4, HEMDF, ESR #### [address] Eosinophils/100 WBC (Bld) 11.3 % High 1.0-6.0 [facility] Work Phone: Comment on above: Performed By: #### C RP2, PCAL, CMP3M, LIPA4, HEMDF, ESR #### [address] Granulocytes/100 WBC (Bld) 68.6 % Normal 40.0-80.0 [facility] Work Phone: Comment on above: Performed By: #### C RP2, PCAL, CMP3M, LIPA4, HEMDF, ESR #### [address] Hematocrit (Bld) [Volume fraction] 34.5 % Low 35.0-47.0 [facility] Work Phone: [phone] Comment on above: Performed By: #### C RP2, PCAL, CMP3M, LIPA4, HEMDF, ESR #### [employer] [place] [address] [place], [place] Lymphocytes (Bld) [#/Vol] 1.1 10*3/uL Normal 1.0-4.3 [facility] Work Phone: [phone] Comment on above: Performed By: #### C RP2, PCAL, CMP3M, LIPA4, HEMDF, ESR #### [employer] [place] [address] [place], [place] Lymphocytes/100 WBC (Bld) 16.7 % Low 20.0-40.0 [facility] Work Phone: [phone] Comment on above: Performed By: #### C RP2, PCAL, CMP3M, LIPA4, HEMDF, ESR #### [employer] [place] [address] [address] [place], [place] MCH (RBC) [Entitic mass] 31.7 pg Normal 26.0-34.0 [facility] Work Phone: [phone] Comment on above: Performed By: #### C RP2, PCAL, CMP3M, LIPA4, HEMDF, ESR #### [employer] [place] [address] [place], [place] MCV (RBC) [Entitic vol] 96.5 fL Normal 79.0-98.0 [facility] Work Phone: [phone] Comment on above: Performed By: #### C RP2, PCAL, CMP3M, LIPA4, HEMDF, ESR #### [employer] [address] Monocytes (Bld) [#/Vol] 0.2 10*3/uL Normal 0.0-0.8 [facility] Work Phone: [phone] Comment on above: Performed By: #### C RP2, PCAL, CMP3M, LIPA4, HEMDF, ESR #### [employer] [place] [address] [place], [place] Monocytes/100 WBC (Bld) 3.3 % Normal 2.0-10.0 [facility] Work Phone: [phone] Comment on above: Performed By: #### C RP2, PCAL, CMP3M, LIPA4, HEMDF, ESR #### [facility] [place], [place] Platelet mean volume (Bld) [Entitic vol] 8.3 fL Normal 7.4-10.4 [facility] Work Phone: [phone] Comment on above: Performed By: #### C RP2, PCAL, CMP3M, LIPA4, HEMDF, ESR #### [facility] [place], [place] Platelets (Bld) [#/Vol] 208 10*3/uL Normal 140-440 [facility] Work Phone: [phone] Comment on above: Performed By: #### C RP2, PCAL, CMP3M, LIPA4, HEMDF, ESR #### [facility] [place], [place] RBC (Bld) [#/Vol] 3.57 10*6/uL Low 3.80-5.20 [facility] Work Phone: [phone] Comment on above: Performed By: #### C RP2, PCAL, CMP3M, LIPA4, HEMDF, ESR #### [facility] [place], [place] WBC (Bld) [#/Vol] 6.3 10*3/uL Normal 3.6-10.7 [facility] Work Phone: [phone] Comment on above: Performed By: #### C RP2, PCAL, CMP3M, LIPA4, HEMDF, ESR #### [facility] [address] [place] [address] Lactate, SepsisOrdered By: Anitra Palomares on 01-05-2021 Lactate [Moles/Vol] 0.7 mmol/L 0.7 - 2. 0 mmol/L [facility] Work Phone: [phone] Test Performed by [facility], [address] [place] [address] [facility] Work Phone: [phone] [employer] Work Phone: [phone] Lactic Acid, Sepsison 2020 Lactate [Moles/Vol] 0.7 mmol/L Normal 0.7-2.0 [facility] [employer] Comment on above: Performed By: #### L ACTS ####[facility] [address] [place] [address] Lipaseon 01-05-2021 Lipase [Catalytic activity/Vol] 29 U/L Normal 23-300 [facility] [employer] Comment on above: Performed By: #### C RP2, PCAL, CMP3M, LIPA4, HEMDF, ESR #### [facility] [address] [place] [address] LipaseOrdered By: Kian velasquez on 01-05-2021 Lipase [Catalytic activity/Vol] 29 U/L 23 - 300 U/L [facility] Work Phone: [phone] Panel InformationOrdered By: Kian Palomares on 01-05-2021 Interpretation and review of laboratory results Abnormal [facility] Work Phone: [phone] Test Performed by [facility], [address] [place] [address] [facility] Work Phone: [phone] [facility] Work Phone: [phone] Interpretation and review of laboratory results Abnormal [facility] Work Phone: [phone] Test Performed by [facility], [address] [place] [address] [facility] Work Phone: [phone] [facility] Work Phone: [phone] Procalcitoninon 01-05-2021 Procalcitonin 0.99 ng/mL High 0.00-0.09 [facility] Comment on above: Performed By: #### C RP2, PCAL, CMP3M, LIPA4, HEMDF, ESR #### [facility] [employer] [facility] [place] [address] Interpretation See Below Normal [facility] Comment on above: Result Comment: PCT <0.50 = Low risk of severe sepsis and/or septic shock. PCT >2.00 = High risk of severe sepsis and/or septic shock. Performed By: #### C RP2, PCAL, CMP3M, LIPA4, HEMDF, ESR #### [facility] [address] [place] [address] ProcalcitoninOrdered By: iLllian Palomares on 01-05-2021 Interpretation See Below [employer] Work Phone: Comment on above: PCT <0.50 = Low risk of severe sepsis and/or septic shock. PCT >2.00 = High risk of severe sepsis and/or septic shock. Interpretation and review of laboratory results Abnormal [employer] Work Phone: Procalcitonin 0.99 ng/mL High 0.00 - 0.09 ng/mL [employer] Work Phone: Test Performed by [facility], [address] [place] [address] [employer] Work Phone: [employer] Work Phone: Respiratory Panel, Molecular , with COVID-19 (Restricted: peds pts or suitable admitted adults)Ordered By: Kian Palomares on 01-05-2021 Respiratory Panel Molecular, with COVID NEGATIVE: No targets were detected by the [facility] Upper Respiratory Pathogens PCR Panel. _ Expected Result: Not Detected The [employer] Upper Respiratory Pathogens PCR Panel can detect [...] management decisions. This assay was developed by [employer] and distributed under an Emergency Use Authorization (EUA) granted by the FDA for the qualitative detection of SARS-CoV-2 nucleic acid. Provider and patient fact sheets can be found at https://www.[facility].gov/m edia/789356/download and https://www.[facility].gov/m edia/353116/download. [employer] Work Phone: Test Performed by [facility], [address] [place] [address] [employer] Work Phone: [employer] Work Phone: Sed Rateon 01-05-2021 Sed Rate 27 mm/h High 0-20 [facility] Comment on above: Performed By: #### C RP2, PCAL, CMP3M, LIPA4, HEMDF, ESR #### [facility] [address] [place] [address] Sedimentation RateOrdered By : Kian Palomares on 01-05-2021 Sed Rate 27 mm/h High 0 - 20 mm/h [employer] Work Phone: XR CHEST PORTABLEOrdered By: Kian Palomares on 01-05-2021 Patient Name: CHARLIE NGUYEN Diagnostic Radiology ACCESSION EXAM DATE/TIME PROCEDURE ORDERING PROVIDER [id number] 01/05/2021 20:28 EDT CR Chest Portable [id number] KIAN SILVA CPT code 16573 Reason For Exam (CR Chest Portable) sepsis [...] WENDELL Transcribed Date and Time: 01/05/2021 8:49 [facility] Work Phone: [employer], [facility] Incoming Radiology Results From [facility] - 01/05/2021 8:51 PM EDT Patient Name: CHARLIE NGUYEN Diagnostic Radiology ACCESSION EXAM DATE/TIME PROCEDURE ORDERING PROVIDER [id number] 01/05/2021 20:28 EDT CR Chest Portable KIAN ANDERSON CPT code 43445 Reason For Exam (CR Chest Portable) sepsis [...] WENDELL Transcribed Date and Time: 01/05/2021 8:49 [facility] Work Phone: [facility] Work Phone: XR KNEE RIGHT (3 VIEWS)Order ed By: Kian Palomares on 01-05-2021 Patient Name: CHARLIE NGUYEN Diagnostic Radiology ACCESSION EXAM DATE/TIME PROCEDURE ORDERING PROVIDER [id number] 01/05/2021 20:28 EDT CR Knee 3 Views Right KIAN ANDERSON CPT code 49389 Reason For Exam (CR Knee 3 Views [...] Phone: [employer], [facility] Incoming Radiology Results From [facility] - 01/05/2021 8:51 PM EDT Patient Name: CHARLIE NGUYEN Diagnostic Radiology ACCESSION EXAM DATE/TIME PROCEDURE ORDERING PROVIDER [id number] 01/05/2021 20:28 EDT CR Knee 3 Views Right [id number] KIAN SILVA CPT code 29411 Reason For Exam (CR Knee 3 Views [...] 8:45 [facility] Work Phone: [facility] Work Phone: [place] 12-26-2020 [facility] HNO ID: [id number] Author: Alexandria Reddy MD Service: Hospital Medicine [...] MD Consulting: Kurtis Danielson MD Primary Service: [facility] 1 MY CONDITION AT DISCHARGE: Stable REASON I [...] No pending results Discharge Disposition Discharge Disposition: [facility] For Intermediate Care/Assisted Living Activity When You [...] every Thursday faxed to Sanjana Tarango at [phone] ? UTI UA with pyuria; culture?pos for [...] MD Consulting: Kurtis Danielson MD Primary Service: [place] [address] Transitions of Care Critical Issues: NEW BASELINE FOR PATIENT: 1. LAB MONITORING NEEDED: Needs CBC w/ diff, CMP, vancomycin trough, ESR, CRP every Thursday faxed to Sanjana Tarango at [phone] SPECIALIST FOLLOW-UP: 1. infectious diseaes 2. Orthopedic [...] ) Preliminary resu (more content not included)... [facility] NURSING PROGon 12-26-2020 NURSING PROG HNO ID: [id number] Author: Sandra Gonzales RN Service: ? 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 184 discharge instructions given to the pt, pt educated on how and when to take pain meds, belongings with pt, transport here, pt left unit via cart, report called to [facility]. This note was completed by: Sandra Gonzales [facility] NUTRITIONon 12-26-2020 NUTRITION HNO ID: [id number] Author: Carmen Garner DTR Service: Nutrition Therapy Author Type: Golf Cart Maker Type: Nutrition Filed: 12/26/2020 12:21 PM Note Text: NUTRITION THERAPY BEAD TRIMMER NOTE SERVICE DATE: 12/26/2020 SERVICE TIME: 10:18 [...] December 26, 2020 TIME: 12:18 PM PAGER: [phone] [facility] THERAPY NTon 12-26-2020 THERAPY NT HNO ID: [id number] Author: Brandi Carrasco OTR/L Service: Occupational Therapy Author Type: Occupational Therapist Type: Therapy (PT/OT/Speech/Resp) Filed: 12/26/2020 2:28 PM Note Text: OCCUPATIONAL THERAPY MISSED VISIT SERVICE DATE: 12/26/2020 SERVICE TIME: 1415 to 1420 ROOM: [address] Attempted Treatment. Patient not seen due to Declined (Pt declines getting up to the chair; wants to sleep as she reports she's been up since 6:30. Continue as able. Nsg notified.). SIGNATURE: KEV Sánchez/Catrachito PATIENT NAME: Charlie Nguyen DATE: December 26, 2020 TIME: 2:28 PM [facility] C difficile PCRon 12-25-2020 C difficile PCR Negative [facility] Comment on above: Performed By: #### C DPCR #### [facility] [address] [place] [address] NURSING PROGon 12-25-2020 NURSING PROG HNO ID: [id number] Author: Eduardo Ley RN Service: Nursing Author Type: Registered Nurse Type: Nursing Progress Note Filed: 12/26/2020 2:51 AM Note Text: Nursing Progress Note Patient Name: Charlie Nguyen Patient Location: [place] [address] [address] Daily Note: 1900 Assumed Care of patient. Received bedside report from off going nurse. Patient's bed alarm is on and functioning. 2219 patient is assessed as charted and medicated per MAR This note was completed by: Eduardo Ley [facility] NURSING PROG HNO ID: [id number] Author: Turner Patten RN Service: Nursing Author Type: Registered Nurse Type: Nursing Progress Note Filed: 12/25/2020 12:04 PM Note Text: Nursing Progress Note Patient Name: Charlie Nguyen Patient Location: [facility]/[place] [address] Daily Note:Assessment as charted. Patient denies any chest pain or shortness of breath. Patient is lethargic and disoriented. Patient did not believe she was in the hospital. Goal for the day is to control pain. Bed in low position, bed alarm on, call light in reach. Will continue to monitor. This note was completed by: Turner Patten [facility] NURSING PROG HNO ID: [id number] Author: Eduardo Ley RN Service: Nursing Author Type: Registered Nurse Type: Nursing Progress Note Filed: 12/25/2020 2:01 AM Note Text: Nursing Progress Note Patient Name: Charlie Nguyen Patient Location: [place] [address]P Daily Note: 1900 Assumed Care of patient. Received bedside report from off going nurse. Patient's bed alarm is on and functioning. 2211 patient is aANDo x3, patient is assessed as charted and medicated per MAR This note was completed by: Eduardo Ley [facility] THERAPY NTon 12-25-2020 THERAPY NT HNO ID: [id number] Author: Nathaly Bueno PTA Service: Physical Therapy Author Type: Manager Paid Type: Therapy (PT/OT/Speech/Resp) Filed: 12/25/2020 12:51 PM Note Text: Attestation signed by Iris Pickens PT at 12/25/2020 2:47 PM I reviewed and agree with the documentation corresponding to this therapy visit. SIGNATURE: Iris Pickens PT DATE: December 25, 2020 TIME: 2:47 PM PHYSICAL THERAPY MISSED VISIT SERVICE DATE: 12/25/2020 SERVICE TIME: 1000 to 1000 ROOM: [address] Attempted Treatment. Patient not seen due to (pt lethargic and with low BP per nurse). SIGNATURE: Nathaly Bueno PTA PATIENT NAME: Charlie gNuyen DATE: December 25, 2020 TIME: 12:51 PM [facility] THERAPY NT HNO ID: [id number] Author: ARTHUR Madrid Service: Occupational Therapy Author Type: Shop Service Technician Type: Therapy (PT/OT/Speech/Resp) Filed: 12/25/2020 12:27 PM Note Text: Attestation signed by GYPSY Lemon at 12/25/2020 3:33 PM Collaboration with ARTHUR occurred and documentation corresponding to this therapy visit was reviewed. ANJUM Lemon OTR/L OCCUPATIONAL THERAPY MISSED VISIT SERVICE DATE: 12/25/2020 SERVICE TIME: 1000 to 1000 ROOM: [address] Attempted Treatment. Patient not seen due to (per nurse pt lethargic and confused with low blood pressure hold this AM). SIGNATURE: ARTHUR Madrid PATIENT NAME: Charlie Nguyen DATE: December 25, 2020 TIME: 12:27 PM Normal [facility] Vancomycinon 12-25-2020 Vancomycin 13.3 ug/mL Normal 10.0-20.0 [facility] Comment on above: Result Comment: Refe rence ranges and high/low indicator flags are provided as general guidelines only. The treating physician must determine appropriate target levels/dosing based on the specific clinical situation. Basic Metabolic Panlon 12-24 Anion gap [Moles/Vol] 12 mmol/L Normal 9-18 [facility] Calcium [Mass/Vol] 9.4 mg/dL Normal 8.5-10.2 [facility] Chloride [Moles/Vol] 93 mmol/L Low 97-105 [facility] CO2 [Moles/Vol] 30 mmol/L Normal 22-33 [facility] Creatinine [Mass/Vol] 0.82 mg/dL Normal 0.58-0.96 [facility] eGFR- Amer. >60 Normal [facility] eGFR-All Other Races >60 Normal [facility] Comment on above: Result Comment: eGFR (Estimated GFR) Units of measure: mL/min/1.73 meters squared eGFR is derived from the reexpressed MDRD Study equation using the following parameters: serum creatinine, age, gender and race. The creatinine assay has been calibrated to be traceable to IDAL. An eGFR <60 mL/min/1.73m2 for >3 months is consistent with chronic kidney disease. Refer to KDOQI guidelines for clinical interpretation. In patients with unstable renal function, e.g. those with acute kidney injury, the eGFR may not accurately reflect actual GFR. Glucose [Mass/Vol] 85 mg/dL Normal 74-99 [facility] Potassium [Moles/Vol] 4.2 mmol/L Normal 3.7-5.1 [facility] Sodium [Moles/Vol] 135 mmol/L Low 136-144 [facility] Urea nitrogen [Mass/Vol] 7 mg/dL Normal 7-21 [facility] CASE MANAGEMon 12-24-2020 CASE MANAGEM HNO ID: [id number] Author: Laura Silva RN Service: Case Management Author Type: Registered Nurse Type: Care Mgt Progress Note Filed: 12/24/2020 2:16 PM Note Text: CARE MANAGEMENT PROGRESS NOTE SERVICE DATE: 12/24/2020 SERVICE TIME: 11:41 AM LOS: 5 days Needs Prior to Discharge: Discharge Transportation;Other: See Comment (updated COVID) 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 Facility aware that PICC has been [...] 24, 2020 TIME: 11:41 AM PAGER/CONTACT #: [phone] Normal [facility] Coronavirus 2019on 1 SARS-CoV-2 (COVID-19) RNA TANVIR+probe Ql (Unsp spec) UPPER RESPIRATORY TRACT SWAB Normal [facility] Comment on above: Performed By: #### C OVID ####[facility], [place] [phone] SARS-CoV-2 (COVID-19) RNA TANVIR+probe Ql (Unsp spec) Negative for COVID19 (SARS CoV2) by RT-PCR or equivalent method. Normal Negative for COVID19 (SARS CoV2) by RT-PCR or equivalent method. [facility] Comment on above: Result Comment: This test was developed and its performance characteristics determined by [facility]'s [facility] [place]. This test has been authorized by FDA under an Emergency Use Authorization (EUA). This test has been validated in accordance with the FDA's Guidance Document "Policy for Diagnostics Testing in Laboratories Certified to Perform High Complexity Testing under CLIA prior to Emergency use Authorization for Coronavirus Disease 2019 during the Public Health Emergency" issued on July 30, 2019. Test performed by [facility], [facility] [place], [address] [place], [place] [address]. Performed By: #### C OVID ####[facility] [id number] [place], [place] [phone] NURSING PROGon 12-24-2020 NURSING PROG HNO ID: [id number] Author: Turner Patten RN Service: Nursing Author Type: Registered Nurse Type: Nursing Progress Note Filed: 12/24/2020 11:33 AM Note Text: Nursing Progress Note Patient Name: Charlie Nguyen Patient Location: [place] [address] Daily Note:Assessment as charted. Patient resting in bed. Patient denies any chest pain or shortness of breath. Patient complains of 8/10 pain in right knee, medicated for pain. Goal for the day is to control pain and increase mobility. Bed in low position, bed alarm on, call light in reach. Will continue to monitor. This note was completed by: Turner Patten [facility] THERAPY NTon 12-24-2020 THERAPY NT HNO ID: [id number] Author: KEV Sánchez/Catrachito Service: Occupational Therapy Author Type: Occupational Therapist Type: Therapy (PT/OT/Speech/Resp) Filed: 12/24/2020 5:51 PM Note Text: Occupational Therapy Treatment SERVICE DATE: 12/24/2020 SERVICE TIME: 1025 to 1050 ROOM: [address] Recommended Discharge Disposition: Subacute/SNF Recommended Discharge [...] Patient Lives With: Facility Care (LTC at [facility]) Assistance Available: 24 Hour Entry To Home: No Stairs Tub/Shower Type: walk in shower Laundry: facility does laundry Equipment Owned: Wheelchair (reporting has own WC; manual) Prior Functional Level: Required Assistance Assistance Required With: Cleaning;Laundry;Safe ty;Self Care;Shopping;Transpo rtation;Medication Management;Meals Prior Functional Level Comments: pt questionable historian; reporting from [facility]; reporting pivot transfers only to , bed, [...] Sit Pivot (x2, mod cues for sequencing, OLIVE BRINE TESTER) Toilet/Commode Shower Functional Mobility (non ambulatory) Blank [...] with: Minimal Assistan (more content not included)... [facility] THERAPY NT HNO ID: [id number] Author: Toshia Velázquez, PT Service: Physical Therapy Author Type: Physical Therapist Type: Therapy (PT/OT/Speech/Resp) Filed: 12/24/2020 1:14 PM Note Text: Physical Therapy Treatment SERVICE DATE: 12/24/2020 SERVICE TIME: 1025 to 1050 ROOM: [place] [address] Recommended Discharge Disposition Comments: rec trial SNF [...] Patient Lives With: Facility Care (LTC at [facility]) Assistance Available: 24 Hour Entry To Home: No Stairs Tub/Shower Type: walk in shower Laundry: facility does laundry Equipment Owned: Wheelchair (reporting has own WC; manual) Prior Functional Level: Required Assistance Assistance Required With: Cleaning;Laundry;Safe ty;Self Care;Shopping;Transpo rtation;Medication Management;Meals Prior Functional Level Comments: pt questionable historian; reporting from [facility]; reporting pivot transfers only to WC, bed, [...] (ADL);Muscle Weakness (generalized) Interventions Provided: Therapeutic Activity (40484) Therapeutic Activity (04134) Treatment Minutes: 25 $ Therapeutic Activity (84633) Billed Units: 2 units Training AND education provided in: Bed mobility, Benefits of in-hospital mobility, Discharge planning, Equipme (more content not included)... Normal [facility] Vancomycinon 12-24-2020 Vancomycin 24.5 ug/mL High 10.0-20.0 [facility] Comment on above: Result Comment: Refe rence ranges and high/low indicator flags are provided as general guidelines only. The treating physician must determine appropriate target levels/dosing based on the specific clinical situation. CBCon 12-23-2020 Absolute nRBC <0.01 Normal <0.01 [facility] Erythrocyte distribution width (RBC) [Ratio] 14.6 % Normal 11.5-15.0 [facility] Hematocrit (Bld) [Volume fraction] 35.9 % Low 36.0-46.0 [facility] Hemoglobin (Bld) [Mass/Vol] 11.7 g/dL Normal 11.5-15.5 [facility] MCH 32.2 pG Normal 26.0-34.0 [facility] MCHC (RBC) [Mass/Vol] 32.6 g/dL Normal 30.5-36.0 [facility] MCV (RBC) [Entitic vol] 98.9 fL Normal 80.0-100.0 [facility] Platelet mean volume (Bld) [Entitic vol] 10.0 fL Normal 9.0-12.7 [facility] Platelets (Bld) [#/Vol] 213 10*3/uL Normal 150-400 [facility] RBC (Bld) [#/Vol] 3.63 10*6/uL Low 3.90-5.20 [facility] WBC (Bld) [#/Vol] 5.70 10*3/uL Normal 3.70-11.00 [facility] NURSING PROGon 12-23-2020 NURSING PROG HNO ID: [id number] Author: Toshia Frye RN Service: Nursing Author Type: Registered Nurse Type: Nursing Progress Note Filed: 12/24/2020 5:51 AM Note Text: Nursing Progress Note Patient Name: Charlie Nguyen Patient Location: [place] [address] 1900- Bedside report received, assumed care of [...] importance of staggering medications that 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 Pt states she is able to take them [facility] [place] [facility]. Educated regarding hospital policy due to safety reasons. Pt remains upset. Not receptive to education at this time. 0300- prior assessment remains unchanged, will continue to monitor. This note was completed by: Toshia Frye [facility] NURSING PROG HNO ID: [id number] Author: Terry Moreau RN Service: Nursing Author Type: Registered Nurse Type: Nursing Progress Note Filed: 12/23/2020 12:14 PM Note Text: Nursing Progress Note ? Patient Name: Charlie Nguyen Patient Location: [place] [address]/[facility]-P Daily note: 0700 Assumed care of patient. [...] was completed by: Terry Davidson RN BSN [facility] NURSING PROG HNO ID: [id number] Author: Eduardo Ley RN Service: Nursing Author Type: Registered Nurse Type: Nursing Progress Note Filed: 12/23/2020 2:54 AM Note Text: Nursing Progress Note Patient Name: Charlie Nguyen Patient Location: [place] [address]P Daily Note: 1900 Assumed Care of patient. Received bedside report from off going nurse. Patient's bed alarm is on and functioning. 2140 patient is assessed as charted, patient is upset about medication regimen, educated patient on scheduled versus PRN medications. Patient still upset at this time, gave alternative interventions to medication and patient denied all options. Patient medicated per JUL This note was completed by: Eduardo Ley [facility] Renal Function Panelon 12-23 Albumin [Mass/Vol] 3.1 g/dL Low 3.9-4.9 [facility] Anion gap [Moles/Vol] 7 mmol/L Low 9-18 [facility] Calcium [Mass/Vol] 8.1 mg/dL Low 8.5-10.2 [facility] Chloride [Moles/Vol] 100 mmol/L Normal 97-105 [facility] CO2 [Moles/Vol] 33 mmol/L Normal 22-33 [facility] Creatinine [Mass/Vol] 0.80 mg/dL Normal 0.58-0.96 [facility] eGFR- Amer. >60 Normal [facility] eGFR-All Other Races >60 Normal [facility] Comment on above: Result Comment: eGFR (Estimated [...] GFR. Glucose [Mass/Vol] 83 mg/dL Normal 74-99 [facility] Phosphate [Mass/Vol] 5.2 mg/dL High 2.7-4.8 [facility] Potassium [Moles/Vol] 4.8 mmol/L Normal 3.7-5.1 [facility] Sodium [Moles/Vol] 140 mmol/L Normal 136-144 [facility] Urea nitrogen [Mass/Vol] 7 mg/dL Normal 7-21 [facility] THERAPY NTon 12-23-2020 THERAPY NT HNO ID: [id number] Author: Steffen Jeff PTA Service: Physical Therapy Author Type: Manager Paid Type: Therapy (PT/OT/Speech/Resp) Filed: 12/23/2020 1:48 PM Note Text: Attestation signed by Deja Strickland PT at 12/23/2020 1:52 PM I reviewed and agree with the assessment as documented above. SIGNATURE: Deja Strickland, PT DATE: December 23, 2020 TIME: 1:52 PM PHYSICAL THERAPY MISSED VISIT SERVICE DATE: 12/23/2020 SERVICE TIME: 1355 to 1355 ROOM: [address] Attempted Treatment. Patient not seen due to (pt. reports that she needs to get cleaned up after having a BM. PCNA notified. Will attempt to return this PM as able.). SIGNATURE: Steffen Jeff PTA PATIENT NAME: Charlie Nguyen DATE: December 23, 2020 TIME: 1:48 PM Normal [facility] CBCon 12-22-2020 Absolute nRBC <0.01 Normal <0.01 [facility] Erythrocyte distribution width (RBC) [Ratio] 15.0 % Normal 11.5-15.0 [facility] Hematocrit (Bld) [Volume fraction] 39.5 % Normal 36.0-46.0 [facility] Hemoglobin (Bld) [Mass/Vol] 12.1 g/dL Normal 11.5-15.5 [facility] MCH 31.0 pG Normal 26.0-34.0 [facility] MCHC (RBC) [Mass/Vol] 30.6 g/dL Normal 30.5-36.0 [facility] MCV (RBC) [Entitic vol] 101.3 fL High 80.0-100.0 H [facility] Platelet mean volume (Bld) [Entitic vol] 10.3 fL Normal 9.0-12.7 [facility] Platelets (Bld) [#/Vol] 217 10*3/uL Normal 150-400 [facility] RBC (Bld) [#/Vol] 3.90 10*6/uL Normal 3.90-5.20 [facility] WBC (Bld) [#/Vol] 7.69 10*3/uL Normal 3.70-11.00 [facility] CONSULT PROGon 12-22-2020 CONSULT PROG HNO ID: [id number] Author: Luli Richards MD Service: Infectious Disease [...] December 22, 2020 TIME: 10:28 AM Normal [facility] NURSING PROGon 12-22-2020 NURSING PROG HNO ID: [id number] Author: Terry Moreau RN Service: Nursing Author Type: Registered Nurse Type: Nursing Progress Note Filed: 12/22/2020 3:56 PM Note Text: Nursing Progress Note ? Patient Name: Charlie Nguyen Patient Location: [place] [address] [address] Daily note: 0700 Assumed care of patient. Received report from previous RN. Patient awake in bed. Ortho at bedside evaluating patient. Safety check completed at this time. 0930 Assessment completed and charted refer to NPR. Patient oriented x 3. PICC line dressing C/D/I with minor sanginqeous drainage noted. Flushes with positive blood return confirmed. Given oxycodone for pain control. Vitals remain stable at this time. Will continue to monitor. This note was completed by: Terry Davidson LEAD MINER BLASTING [facility] NURSING PROG HNO ID: [id number] Author: Sanjay Isaac RN Service: Nursing Author Type: Registered Nurse Type: Nursing Progress Note Filed: 12/22/2020 5:47 AM Note Text: Nursing Progress Note Patient Name: Charlie Nguyen Patient Location: [facility] Daily Note: 1900 Assumed care of pt. [...] This note was completed by: Sanjay Isaac [facility] Renal Function Panelon 12-22 Albumin [Mass/Vol] 3.0 g/dL Low 3.9-4.9 [facility] Anion gap [Moles/Vol] 8 mmol/L Low 9-18 [facility] Calcium [Mass/Vol] 8.5 mg/dL Normal 8.5-10.2 [facility] Chloride [Moles/Vol] 99 mmol/L Normal 97-105 [facility] CO2 [Moles/Vol] 31 mmol/L Normal 22-33 [facility] Creatinine [Mass/Vol] 0.81 mg/dL Normal 0.58-0.96 [facility] eGFR- Amer. >60 Normal [facility] eGFR-All Other Races >60 Normal [facility] Comment on above: Result Comment: eGFR (Estimated [...] GFR. Glucose [Mass/Vol] 79 mg/dL Normal 74-99 [facility] Phosphate [Mass/Vol] 5.1 mg/dL High 2.7-4.8 [facility] Potassium [Moles/Vol] 4.9 mmol/L Normal 3.7-5.1 [facility] Sodium [Moles/Vol] 138 mmol/L Normal 136-144 [facility] Urea nitrogen [Mass/Vol] 7 mg/dL Normal 7-21 [facility] Vancomycinon 12-22-2020 Vancomycin 11.7 ug/mL Normal 10.0-20.0 [facility] Comment on above: Result Comment: Refe rence ranges and high/low indicator flags are provided as general guidelines only. The treating physician must determine appropriate target levels/dosing based on the specific clinical situation. CBCon 12-21-2020 Absolute nRBC <0.01 Normal <0.01 [facility] Erythrocyte distribution width (RBC) [Ratio] 14.6 % Normal 11.5-15.0 [facility] Hematocrit (Bld) [Volume fraction] 33.9 % Low 36.0-46.0 [facility] Hemoglobin (Bld) [Mass/Vol] 10.6 g/dL Low 11.5-15.5 [facility] MCH 30.6 pG Normal 26.0-34.0 [facility] MCHC (RBC) [Mass/Vol] 31.3 g/dL Normal 30.5-36.0 [facility] MCV (RBC) [Entitic vol] 98.0 fL Normal 80.0-100.0 H [facility] Platelet mean volume (Bld) [Entitic vol] 10.6 fL Normal 9.0-12.7 [facility] Platelets (Bld) [#/Vol] 202 10*3/uL Normal 150-400 [facility] RBC (Bld) [#/Vol] 3.46 10*6/uL Low 3.90-5.20 [facility] WBC (Bld) [#/Vol] 9.04 10*3/uL Normal 3.70-11.00 [facility] CONSULT PROGon 12-21-2020 CONSULT PROG HNO ID: [id number] Author: Sybil Randhawa [facility] Service: Pharmacy Author Type: Pharmacist Type: Consult [...] pharmacy if questions. Sybil Randhawa [facility] [id number] Normal [facility] NURSING PROGon 12-21-2020 NURSING PROG HNO ID: [id number] Author: Kimberly Headley RN Service: Nursing Author Type: Registered Nurse Type: Nursing Progress Note Filed: 12/21/2020 3:23 PM Note Text: Nursing Progress Note Patient Name: Charlie Nguyen Patient Location: [facility] Daily Note: 0700 Assumed patient care, bedside [...] This note was completed by: Kimberly Headley [facility] NURSING PROG HNO ID: [id number] Author: Eduardo Ley RN Service: Nursing Author Type: Registered Nurse Type: Nursing Progress Note Filed: 12/20/2020 11:28 PM Note Text: Nursing Progress Note Patient Name: Charlie Nguyen Patient Location: [facility] Daily Note: 1900 Assumed Care of patient. Received bedside report from off going nurse. Patient's bed alarm is on and functioning. Will continue to monitor. 2108 patient is aANDo x3, patient is assessed as charted and medicated per JUL This note was completed by: Eduardo Ley [facility] PT EDon 12-21-2020 PT ED HNO ID: [id number] Author: Chaitanya Champagne RN Service: PICC Team Author Type: Registered Nurse Type: Patient Education Filed: 12/21/2020 12:46 PM Note Text: PATIENT EDUCATION TOPIC: PROCEDURE / SURGERY: Procedure/Surgery: PICC INSERTION PATIENT NAME: Charlie Nguyen PATIENT LOCATION: [facility] READINESS TO LEARN COGNITIVE ABILITY: Alert and [...] (RECOMMENDATION): None Electronically Signed By: Chaitanya Champagne Normal [facility] Renal Function Panelon 12-21 Albumin [Mass/Vol] 3.0 g/dL Low 3.9-4.9 [facility] Anion gap [Moles/Vol] 8 mmol/L Low 9-18 [facility] Calcium [Mass/Vol] 8.7 mg/dL Normal 8.5-10.2 [facility] Chloride [Moles/Vol] 102 mmol/L Normal 97-105 [facility] CO2 [Moles/Vol] 28 mmol/L Normal 22-33 [facility] Creatinine [Mass/Vol] 0.64 mg/dL Normal 0.58-0.96 [facility] eGFR- Amer. >60 Normal [facility] eGFR-All Other Races >60 Normal [facility] Comment on above: Result Comment: eGFR (Estimated [...] GFR. Glucose [Mass/Vol] 99 mg/dL Normal 74-99 [facility] Phosphate [Mass/Vol] 3.0 mg/dL Normal 2.7-4.8 [facility] Potassium [Moles/Vol] 4.1 mmol/L Normal 3.7-5.1 [facility] Sodium [Moles/Vol] 138 mmol/L Normal 136-144 [facility] Urea nitrogen [Mass/Vol] 7 mg/dL Normal 7-21 [facility] THERAPY NTon 12-21-2020 THERAPY NT HNO ID: [id number] Author: Deja Strickland PT Service: Physical Therapy Author Type: Physical Therapist Type: Therapy (PT/OT/Speech/Resp) Filed: 12/21/2020 2:10 PM Note Text: Physical Therapy Evaluation SERVICE DATE: 12/21/2020 SERVICE TIME: 1355 to 1355 ROOM: [address] PHYSICAL THERAPY MISSED VISIT SERVICE DATE: 12/21/2020 SERVICE TIME: 1355 to 1355 ROOM: [address] Attempted Evaluation. Patient not seen due to Declined. Patient requesting to rest as she reports she had a busy morning. Will defer PT session today. SIGNATURE: Deja Strickland PT PATIENT NAME: Charlie Nguyen DATE: December 21, 2020 TIME: 2:09 PM [facility] THERAPY NT HNO ID: [id number] Author: Toshia Montano OT/Catrachito Service: Occupational Therapy Author Type: Occupational Therapist Type: Therapy (PT/OT/Speech/Resp) Filed: 12/21/2020 11:31 AM Note Text: OCCUPATIONAL THERAPY MISSED VISIT SERVICE DATE: 12/21/2020 SERVICE TIME: 1131 to 1131 ROOM: [address] Attempted Treatment. Patient not seen due to Test/Procedure. SIGNATURE: LINDA Merritt PATIENT NAME: Charlie Nguyen DATE: December 21, 2020 TIME: 11:31 AM Normal [facility] Vancomycinon 12-21-2020 Vancomycin 23.3 ug/mL High 10.0-20.0 [facility] Comment on above: Result Comment: Refe rence ranges and high/low indicator flags are provided as general guidelines only. The treating physician must determine appropriate target levels/dosing based on the specific clinical situation. CASE MGT INIT [facility] 2020 CASE MGT INIT [facility] HNO ID: [id number] Author: Denise Gale RN Service: Case Management Author Type: Registered Nurse Type: Care Mgt Initial Assessment Filed: 12/20/2020 11:01 AM Note Text: CARE MANAGEMENT: ASSESSMENT AND DISCHARGE PLAN SERVICE DATE: December 20, 2020 SERVICE TIME: 10:57 AM PRIMARY CARE PHYSICIAN: Moreno Oates MD ADMISSION STATUS: Inpatient Needs Prior to Discharge: To Be Determined;Discharge Transportation;Discha rge Prescriptions MEDICAL: [place] Patient/Representativ e Stated Goals: To have reduction in symptoms;To have reduction in pain Health Insurance: Medicaid Health Issues Impacting Discharge Plan: None Last Discharge Date: 11/11/19 Is this Within the Past 30 days? Last discharge within 30 days: No Advance Directive: Current Advance Directive: Health Care Power of Filler Operator In Chart: Yes Up To Date and [...] Receive Any Community Services or Home Care?: [facility] Has the Patient Been in a [facility] Facility in the Past 30 days?: Yes SOCIAL: Living Arrangements: Nursing Facility Facility Information: [facility] Financial Resources: Disabled Primary Contact: Extended [...] Completely I feel financially burdened by my feb-sv-mpqize expenses for my prescription medication:: 0 - Disagree Completely Risk Score: 0 Patient is categorized as: Low risk < 2 Are you interested in bedside delivery of your medications? No Is Patient Psychosocially Complex?: No ASSESSMENT AND PLAN: Medical Needs: Medical Needs: None Psychosocial Needs: Psychosocial Needs: None FREEDOM OF CHOICE EXPLAINED: Girard of Choice Given: Yes Level of Care Discussed: [facility] Facility Financial Disclosure Provided: Yes Provider List: Rehab Facility (Patient is LTC at [facility]) POTENTIAL TRANSITION PLANS [facility] Facility/Intermediate Care Facility Met with patient at bedside. She was transferred to us from [facility] ED for a joint infection. Patient is longterm care at [facility] with plans to return there when medically cleared. Return referral sent. Therapy scheduled to evaluate patient today. Will await return response from [facility] for any barriers to return. Cultures pending obtained from OR. Case management will continue to follow and assist with discharge planning needs. SIGNATURE: Denise Gale RN PATIENT NAME: Charlie Nguyen DATE: December 20, 2020 TIME: 10:57 AM PAGER/CONTACT #: [phone] [facility] CONSULTon 12-20-2020 CONSULT HNO ID: [id number] Author: Sanjana Tarango MD Service: Infectious Disease [...] fevers or chills. She had arthrocentesis with 41404 nucleated cells. She went to OR for [...] with meals., Disp: (more content not included)... Normal [facility] NURSING PROGon 12-20-2020 NURSING PROG HNO ID: [id number] Author: Sandra Gonzales RN Service: ? Author Type: Registered Nurse Type: Nursing Progress Note Filed: 12/20/2020 6:48 PM Note Text: Nursing Progress Note Patient Name: Charlie Nguyen Patient Location: /HL454-P Daily Note: Bedside report received, assumed care [...] This note was completed by: Sandra Gonzales [id number] Author: Eduardo Ley RN Service: Nursing Author Type: Registered Nurse Type: Nursing Progress Note Filed: 12/20/2020 1:20 AM Note Text: Nursing Progress Note Patient Name: Charlie Nguyen Patient Location: /--P Daily Note: 2000 Assumed Care of patient. Received report from PACU Patient's bed alarm is on and functioning. Patient oriented to call system and room. 2103 patient is assessed as charted and medicate per MAR This note was completed by: Eduardo Ley [facility] THERAPY NTon 12-20-2020 THERAPY NT HNO ID: [id number] Author: Arelis Castanon, PT Service: Physical Therapy Author Type: Physical Therapist Type: Therapy (PT/OT/Speech/Resp) Filed: 12/20/2020 3:10 PM Note Text: Physical Therapy Evaluation SERVICE DATE: 12/20/2020 SERVICE TIME: 1040 to 1110 ROOM: [address] Recommended Discharge Disposition Comments: rec trial [...] Patient Lives With: Facility Care (LTC at [facility]) Assistance Available: 24 Hour Entry To Home: No Stairs Tub/Shower Type: walk in shower Laundry: facility does laundry Equipment Owned: Wheelchair (reporting has own WC; manual) Prior Functional Level: Required Assistance Assistance Required With: Cleaning;Laundry;Safe ty;Self Care;Shopping;Transpo rtation;Medication Management;Meals Prior Functional Level Comments: pt questionable historian; [facility] reporting pivot transfers only to WC, bed, [...] Weakness (generalized) Interventions Provided: Evaluation;Therapeuti c Activity (29347) $ Evaluation-Low (56437) Billed Units: 1 unit Therapeutic Activity (23177) Treatment Minutes: 15 $ Therapeutic Activity (50175) Billed Units: 1 unit Training AND education provided in: Bed mobility, Benefits of in-hospital mobility, Discharge planning, Equipment, Positioning, Precautions/restricti ons, Role of Physical Therapy, Transfers The following therapeutic skills were used: Activity dosing, Cues for sequencing/proper technique for activity, Cuing tactile, Cuing verbal, Cuing visual, Physical assist Total Timed Code Treatment Minutes: 15 Total Treatment Time ( (more content not included)... Normal [facility] THERAPY NT HNO ID: [id number] Author: KEV Colunga/Catrachito Service: Occupational Therapy Author Type: Occupational Therapist Type: Therapy (PT/OT/Speech/Resp) Filed: 12/20/2020 12:40 PM Note Text: Occupational Therapy Evaluation SERVICE DATE: 12/20/2020 SERVICE TIME: 899 to 929 ROOM: [address] Recommended Discharge Disposition: Subacute/SNF Recommended Discharge [...] Home Environment Patient Lives With: Facility Care ([facility] (LTC ?)) Assistance Available: 24 Hour Entry To Home: No Stairs Tub/Shower Type: walk in shower Laundry: facility does laundry Equipment Owned: Cane;Commode-Bedside; Wheeled Walker;Wheelchair Prior Functional Level: Required Assistance Assistance Required With: Cleaning;Laundry;Meal s;Safety;Self Care;Shopping;Transpo rtation Prior Functional Level Comments: Pt is a questionable historian; Pt has been at [facility] since 10/2019 per chart; using w/c [...] with: Minimal Ass (more content not included)... [facility] AFB Cult and Stainon 021 AFB Cult and Stain Sp. Request/Comment: - Specimen received in sterile container. Smear Result - No acid fast bacilli seen by fluorochrome stain Culture Result - No Acid Fast Bacilli isolated after 42 days [facility] Comment on above: Performed By: #### A ####[facility], [place] [phone] ANES POSTPROC EVALon 021 ANES POSTPROC EVAL HNO ID: [id number] Author: Angela Womack MD Service: Anesthesiology Author Type: Anesthesiologist Type: Anesthesia Postprocedure Evaluation Filed: 12/19/2020 7:47 PM Note Text: POST ANESTHESIA EVALUATION NOTE : 1955 Procedure Summary Date: 12/19/20 Room / Location: ORA / OR Anesthesia Start: 1524 Anesthesia Stop: 1830 Procedure: REVISION JOINT TOTAL KNEE ONE COMPONENT (Right Leg) 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 Normal [facility] APTTon 12-19-2020 aPTT Coag (Bld) [Time] 33.3 s High 23.0-32.4 [facility] Comment on above: Result Comment: Unfr [...] laboratory APTT reagent in use throughout the [facility]. Anaerobe Cultureon Anaerobe Culture Sp. Request/Comment: - Specimen received in sterile container. Culture Result - Negative for anaerobes. No Cutibacterium (Propionibacterium) acnes isolated. 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 Item Serial No. House Director Lot No. [id number] No. Used Action BUSHING FEMORAL MODULAR ROTATE HINGE KNEE - [id number] Joint - Knee BUSHING FEMORAL MODULAR ROTATE HINGE KNEE [employer] [id number] Right 1 Implanted BUSHING FEMORAL MODULAR ROTATE HINGE KNEE - [id number] Joint - Knee BUSHING FEMORAL MODULAR ROTATE HINGE KNEE [employer] [id number] Right 1 Implanted COMPONENT XS SMALL MEDIUM TIBIAL ROTATE HINGE KNEE - [id number] Joint - Knee COMPONENT XS SMALL MEDIUM TIBIAL ROTATE HINGE KNEE [employer] [id number] Right 1 Implanted INSERT GMRS [id number] S1 S2 TIBIAL MODULAR ROTATE HINGE PROXIMAL - [id number] Joint - Knee INSERT GMRS [id number] S1 S2 TIBIAL MODULAR ROTATE HINGE PROXIMAL [employer] [id number] Right 1 Implanted SLEEVE TIBIAL MODULAR ROTATE HINGE KNEE - [id number] Joint - Knee SLEEVE TIBIAL MODULAR ROTATE HINGE KNEE STRY-[facility] [employer] Right 1 Implanted INSERT GMRS NEUTRAL BUMPER MODULAR ROTATE HINGE KNEE PROXIMAL - [id number] Joint - Knee INSERT GMRS NEUTRAL BUMPER MODULAR ROTATE HINGE KNEE PROXIMAL STRY-[facility] [employer] Right 1 Implanted AXLE FEMORAL MODULAR ROTATE HINGE KNEE - [id number] Joint - Knee AXLE FEMORAL MODULAR ROTATE HINGE KNEE STRY-[facility] [employer] Right 1 Implanted Estimated Blood Loss: [...] Resident December 19, 2020 6:20 PM Normal [facility] Basic Metabolic Panlon 12-19 Anion gap [Moles/Vol] 9 mmol/L Normal 9-18 [facility] Calcium [Mass/Vol] 9.0 mg/dL Normal 8.5-10.2 [facility] Chloride [Moles/Vol] 102 mmol/L Normal 97-105 [facility] CO2 [Moles/Vol] 26 mmol/L Normal 22-33 [facility] Creatinine [Mass/Vol] 0.81 mg/dL Normal 0.58-0.96 [facility] eGFR- Amer. >60 Normal [facility] eGFR-All Other Races >60 Normal [facility] Comment on above: Result Comment: eGFR (Estimated [...] GFR. Glucose [Mass/Vol] 73 mg/dL Low 74-99 [facility] Potassium [Moles/Vol] 3.8 mmol/L Normal 3.7-5.1 [facility] Sodium [Moles/Vol] 137 mmol/L Normal 136-144 [facility] Urea nitrogen [Mass/Vol] 15 mg/dL Normal -21 [facility] Body Fluid Cult/Stnon 2020 Body Fluid Cult/Stn Sp. Request/Comment: - Specimen received in sterile container. Smear Result - No organisms seen Many Polymorphonuclear leukocytes Culture Result - No growth 14 days Normal [facility] Comment on above: Performed By: #### B FCUL ####[facility] [id number] [place] [id number] [phone] Body Fluid Cult/Stn Sp. Request/Comment: - Specimen received in sterile container. Smear Result - No organisms seen Many Polymorphonuclear leukocytes Culture Result - No growth 5 days Normal [facility] Comment on above: Performed By: #### B FCUL ####[place] [phone] CASE MANAGEMon 12-19-2020 CASE MANAGEM HNO ID: [id number] Author: Jossy Warner RN Service: Case Management Author Type: Registered Nurse Type: Care Mgt Progress Note Filed: 12/19/2020 1:48 PM Note Text: CARE MANAGEMENT PROGRESS NOTE SERVICE DATE: 12/19/2020 SERVICE TIME: 1:45 PM LOS: 0 days Patient screened and discharge needs evaluated. Letter Of Credit Clerk to follow for discharge planning. SIGNATURE: Jossy Warner RN PATIENT NAME: Charlie Nguyen DATE: December 19, 2020 TIME: 1:39 PM PAGER/CONTACT #: [phone] Normal [facility] CBCon 12-19-2020 Absolute nRBC <0.01 Normal <0.01 [facility] Erythrocyte distribution width (RBC) [Ratio] 15.2 % High 11.5-15.0 [facility] Hematocrit (Bld) [Volume fraction] 40.6 % Normal 36.0-46.0 [facility] Hemoglobin (Bld) [Mass/Vol] 12.9 g/dL Normal 11.5-15.5 [facility] MCH 31.8 pG Normal 26.0-34.0 [facility] MCHC (RBC) [Mass/Vol] 31.8 g/dL Normal 30.5-36.0 [facility] MCV (RBC) [Entitic vol] 100.0 fL Normal 80.0-100.0 [facility] Platelet mean volume (Bld) [Entitic vol] 10.4 fL Normal 9.0-12.7 [facility] Platelets (Bld) [#/Vol] 168 10*3/uL Normal 150-400 [facility] RBC (Bld) [#/Vol] 4.06 10*6/uL Normal 3.90-5.20 [facility] WBC (Bld) [#/Vol] 10.80 10*3/uL Normal 3.70-11.00 [facility] CONSULTon 12-19-2020 CONSULT HNO ID: [id number] Author: Scott Parrish MD Service: Orthopaedic Surgery [...] surgery Disposition: Anticipate surgery today SUBJECTIVE Ms. Nguyne is a 65 year old female with [...] Applicator by RECTA (more content not included)... [facility] CONSULT PROGon 12-19-2020 CONSULT PROG HNO ID: [id number] Author: Royer Winslow RP Service: Pharmacy Author Type: Pharmacist Type: [...] have any questions[place] [phone]. Age: [age] year old Allergies: ALLERGIES Allergen Reactions - Nsaids (Non-Steroid* GI Upset - Gabapentin GI Upset - Macrobid [Nitrofura* Hives - Tramadol Contraindication-Medi mike Surgical Drug interaction with amitriptyline - told not to take due to increased seizure risk - Dittmer [Hydrocodone-* GI Upset Didn't do anything for [...] 24.4 (H) 11/09/2019 0700 13.[address] [facility] Coronavirus 2019on 1 SARS-CoV-2 (COVID-19) RNA TANVIR+probe Ql (Unsp spec) UPPER RESPIRATORY TRACT SWAB Normal [facility] Comment on above: Performed By: #### C OVID ####[facility] [place], [place] [phone] SARS-CoV-2 (COVID-19) RNA TANVIR+probe Ql (Unsp spec) Negative for COVID19 (SARS CoV2) by RT-PCR or equivalent method. Normal Negative for COVID19 (SARS CoV2) by RT-PCR or equivalent method. [facility] Comment on above: Result Comment: This test was developed and its performance characteristics determined by [facility]'s [facility] [place]. This test has been authorized by FDA under an Emergency Use Authorization (EUA). This test has been validated in accordance with the FDA's Guidance Document "Policy for Diagnostics Testing in Laboratories Certified to Perform High Complexity Testing under CLIA prior to Emergency use Authorization for Coronavirus Disease 2019 during the Public Health Emergency" issued on July 30, 2019. Test performed by [facility], [facility] [place], [address] [place], [place] [address]. Performed By: #### C OVID ####[facility], [place] [phone] ED NOTEon 12-19-2020 ED NOTE HNO ID: [id number] Author: ADILENE Guardado Service: ? Author Type: Patient Care Tissue Coordinator Type: ED Notes Filed: 12/19/2020 10:02 AM Note Text: Patient states that she is frustrated with care and is in 9/10 pain. Nurse is notified and aware. At this time an external female catheter has also been placed for adequate voiding. [facility] ED NOTE HNO ID: [id number] Author: Joselin Jeff RN Service: ? Author Type: Registered Nurse Type: ED Notes Filed: 12/19/2020 7:04 AM Note Text: Covid obtained and walked to lab Normal [facility] ED NOTE HNO ID: [id number] Author: Joselin Jeff RN Service: ? Author Type: Registered Nurse Type: ED Notes Filed: 12/19/2020 3:27 AM Note Text: [facility] ED NOTE HNO ID: [id number] Author: Joselin Jeff RN Service: ? Author Type: Registered Nurse Type: ED Notes Filed: 12/19/2020 2:26 AM Note Text: Sent from [facility] ER for possible right knee infection. Right knee replaced recently. Patient c/o / pain. Placed on O2 by squad for pulse ox at 90% on room air upon arrival. Placed on 3L here for pulse ox at 90% on 2 liters NC. [facility] ED PROV NOTEon 12-19-2020 ED PROV NOTE HNO ID: [id number] Author: Russell Holley DO Service: ? Author [...] had prior knee replacement surgery here at [facility]. He was sent for rule out septic [...] take due to increased seizure risk - Dittmer [Hydrocodone-* GI Upset Didn't do anything for [...] SIGNATURE: DO Russell Fernandez DO 12/19/20 0536 [facility] Fungal Cult / Smearon 2020 Fungal Cult / Smear Sp. Request/Comment: - Specimen received in sterile container. Smear Result - No fungus seen. Culture Result - No Fungus isolated after 30 days [facility] Comment on above: Performed By: #### F CULSM ####[facility] [address], [place] [phone] HISTORY PHYSICALon HISTORY PHYSICAL HNO ID: [id number] Author: Angelia Pitt APRN.DOCK HAND Service: Hospital Medicine Author Type: Nurse Practitioner [...] BP allows SIGNATURE: Rufino Torres MD PAGER: [phone] ( please page [phone] between 5 pm and 7 am) DATE of SERVICE: December 19, 2020 TIME of SERVICE: 11:24 AM DEPARTMENT OF HOSPITAL MEDICINE HISTORY AND PHYSICAL EXAM SERVICE DATE: 12/19/2020 SERVICE TIME: 10:09 AM w Primary Care Physician: Moreno Oates MD NIGHT AND WEEKEND COVERAGE: [facility] COVERAGE: Patient admitted to hospital medicine From 0700 - 1630, please contact pager [phone] for patient issues. From 1630 - 0700, please contact the Night Hospitalist on pager [phone] for patient issues. Subjective CHIEF COMPLAINT: Right [...] take due to increased seizure risk - Dittmer [Hydrocodone-* GI Upset Didn't do anything for [...] Valium daily a (more content not included)... Normal [facility] NURSING PROGon 12-19-2020 NURSING PROG HNO ID: [id number] Author: Senait Girard RN Service: Nursing Author Type: Registered Nurse Type: Nursing Progress Note Filed: 12/19/2020 1:42 PM Note Text: Right Femoral Nerve Block SS Dr. Ky YEE Patient verbalized her understanding of the nerve block procedure [facility] NURSING PROG HNO ID: [id number] Author: Terry Moreau RN Service: Nursing Author Type: Registered Nurse Type: Nursing Progress Note Filed: 12/19/2020 7:33 PM Note Text: Nursing Progress Note PATIENT NAME: Charlie Nguyen PATIENT LOCATION: [place] [address] Daily note: 1315 Patient arrived to [facility] in stable condition. Oriented to room and call light system. Updated on pain management board. Skin assessment completed. Report given to Preop Nurse by phone for OR. 1320 UA/UC sent to lab. [phone] Patient off unit in surgery. Report given to on coming night MUSHTAQ magana. This note was completed by: Terry Davidson RN BSN [facility] OPERATIVE NOon 12-19-2020 OPERATIVE NO HNO ID: [id number] Author: Scott Parrish MD Service: Orthopaedic Surgery Author Type: Physician Type: Operative Report Filed: 12/20/2020 11:35 AM Note Text: OPERATIVE/PROCEDURE REPORT LOG ID: [id number] SURGERY/PROCEDURE DATE: 12/19/2020 INCISION/PROCEDURE START TIME: 4:26 PM INCISION CLOSE/PROCEDURE END TIME: 6:06 PM SURGEON(S)/PROCEDURAL IST(S) AND CIRCUIT MANAGER(S): Surgeon(s) and Role: * Scott Parrish MD - Primary * Trish Moran DO - Resident - Assisting * Chris Finn MD - Fellow No Additional Staff Surgeon: Scott Prarish MD Procedure(s): Right knee arthrotomy with irrigation and debridement (with polyethylene exchange)- CPT 09128-48 A 22 modifier is added to the [...] assistants with me immediately available. IMPLANTS: Kimmie MRH 13 mm polyethylene and hinge components [...] December 20, 2020 TIME: 11:35 AM Normal [facility] Protimeon 12-19-2020 PT INR 1.0 Normal 0.9-1.3 [facility] Comment on above: Result Comment: Selina [...] DONAHUE, et al. Chest 2012, 141:7S-47S Heather RA, et al. JACC 2017, 70: 252-289 PT Sec 10.9 sec Normal 9.7-13.0 [facility] Routine Analysis (Synovial F ld)on 12-19-2020 Clarity (U) Cloudy Critically abnormal Clear [facility] Comment on above: Performed By: #### R YELITZAF ####[place] [address] [place], [place] [phone] Color (U) Julianna Critically abnormal Yellow [facility] Comment on above: Performed By: #### R YELITZAF ####[place] [address] [place], [place] [phone] Crystals LM Nom (Urine sed) None seen Normal None seen [facility] Comment on above: Performed By: #### R YELITZAF ####[place] [address], [place] [phone] Lymphocytes/100 WBC (Bld) 3 % Normal [facility] Comment on above: Performed By: #### R YELITZAF ####[place] [address], [place] [phone] Monocytes/100 WBC (Bld) 5 % Normal [facility] Comment on above: Performed By: #### R YELITZAF ####[place] [address], [place] [phone] Neutrophils/100 WBC (Bld) 92 % High 0-25 [facility] Comment on above: Performed By: #### R YELITZAF ####[place] [address] [place], [place] [phone] Path Interp Crystals SEE COMMENT Normal [facility] Comment on above: Result Comment: Revi ewed by Kvng Harris M.D., Ph.D ([id number]) Performed By: #### R YELITZAF ####[facility] [place], [place] [phone] RBC (Bld) [#/Vol] 0.009 10*6/uL High <2000 [facility] Comment on above: Performed By: #### R CHADYNF ####[place] [address] [address], [place] [phone] Site Right Knee Normal [facility] Comment on above: Performed By: #### R YELITZAF ####[facility] [place] [phone] Slide Number [id number] Normal [facility] Comment on above: Performed By: #### R YELITZAF ####[place] [address] [address] [place] [phone] Spec Site, Crystal Right Knee Normal [facility] Comment on above: Performed By: #### R YELITZAF ####[place] [phone] Suprntnt Clarity Clear Normal Clear [facility] Comment on above: Performed By: #### R YELITZAF ####[place] [phone] Suprntnt Color Yellow Critically abnormal Colorless [facility] Comment on above: Performed By: #### R YELITZAF ####[place] [phone] SYNOVIAL COMMENT SEE COMMENT Normal [facility] Comment on above: Result Comment: PREL IMINARY REPORT No diagnostic crystals seen. SEE FINAL SYN FLD PATH REVIEW No malignant cells, no microorganisms Performed By: #### R YELITZAF ####[place] [phone] Synovial Path Interp SEE COMMENT Normal [facility] Comment on above: Result Comment: Revi ewed by Kvng Harris M.D., Ph.D ([id number]) Performed By: #### R YELITZAF ####[place] [phone] [place] [address] /uL High 0-200 [facility] Comment on above: Performed By: #### R YELITZAF ####[address], [place] [phone] SURGICAL PATHOLOGYon 021 SURGICAL PATHOLOGY Specimen originated from [facility] Specimen #: [id number] Submitting Physician: MARICEL LEVY FINAL DIAGNOSIS Right [...] device is inscribed "13 mm, XSML/SML/S1/S2, 6481-3-213, CCP993". The articular surface is smooth and unremarkable. Also identified is a chavez-metallic stemmed tibial tray component measuring 7.5 x 5.6 x 3.7 cm. This device is inscribed [id number], 6481-2-100, XSML-XLG". The outer surface is unremarkable. Also identified is a chavez - metallic surgical annemarie measuring 6.0 cm in length x 1.0 cm in diameter. This device is inscribed [id number], 6481-2-120". The outer surface is unremarkable. Also identified are 4 chavez polyethylene, irregular components, measuring 2.1 to 4.1 cm in greatest dimension, and 6.0 x 4.0 x 2.2 cm in aggregate. The largest device bears no inscription. The second largest device is inscribed "[id number], neutral". The smaller devices are inscribed [id number], 6481-2-110" and "JM913, 6481-2-110". No tissue is present. No sections are submitted. The specimen is reviewed with Dr. Wheatley. NEKaren/priti 12/20/2020 HE PATIENT Gross examination performed at [facility], [address] [place] [address] Date of Report: 12/21/2020 Date of Procedure: 12/19/2020 Date of Receipt: 12/20/2020 Submitted by: MARICEL LEVY Additional Physician(s): RUFINO Gong MAXWELL Location: 4A ORTHO/VASCULAR Diagnostic interpretation performed at [facility], [address] [place] [address]. CLIA Number: [id number] Normal [facility] Tissue Cult / Stainon 2020 Tissue Cult / Stain Sp. Request/Comment: - Specimen received in sterile container. Smear Result - No organisms seen No Polymorphonuclear Leukocytes Culture Result - No growth 14 days [facility] Comment on above: Performed By: #### T ISCUL ####[phone] Tissue Cult / Stain Sp. Request/Comment: - Specimen received in sterile container. Smear Result - No organisms seen No Polymorphonuclear Leukocytes Culture Result - No growth 14 days [facility] Comment on above: Performed By: #### T ISCUL ####[phone] Tissue Cult / Stain Sp. Request/Comment: - Specimen received in sterile container. Smear Result - No organisms seen No Polymorphonuclear Leukocytes Culture Result - No growth 14 days [facility] Comment on above: Performed By: #### T ISCUL ####[address] [facility] [address] [place], [place] [phone] Urinalysison 12-19-2020 Bacteria 1+ /HPF Critically abnormal Negative [facility] Bilirubin, Urine Negative Normal Negative [facility] Clarity (U) Turbid Critically abnormal Clear [facility] Color (U) Yellow Critically abnormal Yellow [facility] Comments SEE COMMENT Normal [facility] Comment on above: Result Comment: Micr oscopic Examination Performed Epithelial cells LM Ql (Urine sed) SEE COMMENT Critically abnormal Occasional [facility] Comment on above: Result Comment: 2+ Squamous Epithelial Cells Glucose Ql (U) Negative Normal Negative [facility] Hemoglobin/Blood,Ur 2+ Critically abnormal Negative [facility] Ketones Ql (U) Negative Normal Negative [facility] Leukest 500 Critically abnormal Negative [facility] Nitrite Ql (U) Negative Normal Negative [facility] pH (U) 6.0 [pH] Normal 5.0-8.0 [facility] Protein, Urine 1+ Critically abnormal Negative [facility] RBC 51-100 Critically abnormal 0-3 [facility] Specific [place], Ur 1.017 Normal 1.005-1.030 [facility] Urine, Other FOR EAST USE ONLY SEE COMMENT Normal [facility] Comment on above: Result Comment: 1+ Mucous Urobilinogen (U) [Mass/Vol] Negative Normal 0.2-1.0 [facility] WBC 100+ /HPF Critically abnormal 0-5 [facility] Urine Cultureon 12-19-2020 Bacteria identified Cx Nom (U) Sp. Request/Comment: - Specimen received in preservative Culture Result - >=100,000 CFU/ml Pseudomonas aeruginosa --> ABNORMAL ALERT ORGANISM: Pseudomonas aeruginosa METHOD: Minimum inhibitory concentration(Vitek) Antibiotic Interp ANDREA Status Gentamicin SUSCEPTIBLE <=1 F Ciprofloxacin SUSCEPTIBLE <=0.25 F Cefepime SUSCEPTIBLE <=1 F Piperacillin/Tazobac SUSCEPTIBLE <=4 F Meropenem INTERMEDIATE 4 F Critically abnormal [facility] Comment on above: Performed By: #### U RCUL ####[facility] [id number] [place], [place] [phone] XR CHEST 1V FRONTAL PORTon 0 12-19-2020 [...] MD on Dec 19 2020 7:59PM EST [id number] N [facility] XR KNEE 2V AP/LAT RTon 12-19 [...] MD on Dec 19 2020 7:35PM EST [id number] N [facility] XR KNEE 4V AP/LAT/OBLS RTon 12-19-2020 [...] 19 2020 3:46AM EST [id number] Normal [facility] Basic Metabolic PanelOrdered By: Jorge Mejia on 12-18-2020 Anion gap [Moles/Vol] 4 mmol/L 3 - 13 mmol/L [facility] Work Phone: Calcium [Mass/Vol] 8.6 mg/dL 8.4 - 10. 4 mg/dL [facility] Work Phone: Chloride [Moles/Vol] 103 mmol/L 98 - 10 7 mmol/L [facility] Work Phone: CO2 [Moles/Vol] 27 mmol/L 22 - 30 mmol/L [facility] Work Phone: Creatinine [Mass/Vol] 0.79 mg/dL 0.52 - 1.25 mg/dL [facility] Work Phone: EGFR IF NonAfrican Iraqi 78.8 mL/min >60 [facility] Work Phone: Comment [...] MDRD (S/P/Bld) [Vol rate/Area] mL/min/{1.73_m2} >60 mL/min [facility] Work Phone: Glucose [Mass/Vol] 96 mg/dL 70 - 100 mg/dL [facility] Work Phone: Interpretation and review of laboratory results Abnormal [facility] Work Phone: Potassium [Moles/Vol] 4.0 mmol/L 3.5 - 5.1 mmol/L [facility] Work Phone: Sodium [Moles/Vol] 134 mmol/L Low 135 - 145 mmol/L [facility] Work Phone: Urea nitrogen (BldV) [Mass/Vol] 20 mg/dL 7 - 20 mg/dL [facility] Work Phone: Test Performed by [facility], [facility] [address] , [address]Avaak Work Phone: [facility] Work Phone: C-REACTIVE PROTEINOrdered By : Jorge Mejia on 12-18-2020 CRP [Mass/Vol] 237 mg/L High 0.0 - 6.0 mg/L [facility] Work Phone: Comment on above: . Interpretation and review of laboratory results Abnormal [facility] Work Phone: Test Performed by [facility], [facility] [address] , [address] Work Phone: [facility] Work Phone: [phone] Hemogram (CBC) w/Auto DiffOr dered By: Jorge Mejia on 12-18-2020 Absolute Baso # 0.1 10*3/uL 0.0 - 0.2 10*3/uL [facility] Work Phone: [phone] Absolute Neut # 8.5 10*3/uL High 1.8 - 7.0 10*3/uL [facility] Work Phone: Basophils/100 WBC (Bld) 0.5 % 0.0 - 2.0 % [facility] Work Phone: [phone] Eosinophils (Bld) [#/Vol] 0.1 10*3/uL 0.0 - 0.5 10*3/uL [facility] Work Phone: [phone] Eosinophils/100 WBC (Bld) 0.5 % Low 1.0 - 6.0 % [facility] Work Phone: Granulocytes/100 WBC (Bld) 73.0 % 40.0 - 80.0 % [facility] Work Phone: [phone] Hematocrit (Bld) [Volume fraction] 37.1 % 35.0 - 47.0 % [facility] Work Phone: [phone] Hemoglobin.gastrointesti nal spec 1 Ql (Stl) 12.2 g/dL 11.7 - 16.0 g/dL [facility] Work Phone: [phone] Interpretation and review of laboratory results Abnormal [facility] Work Phone: Lymphocytes (Bld) [#/Vol] 2.0 10*3/uL 1.0 - 4.3 10*3/uL [facility] Work Phone: Lymphocytes/100 WBC (Bld) 17.1 % Low 20.0 - 40.0 % [facility] Work Phone: [phone] MCH (RBC) [Entitic mass] 31.5 pg 26. 0 - 34.0 pg [facility] Work Phone: [phone] MCHC (RBC) [Mass/Vol] 32.9 % 32.0 - 36.0 % [facility] Work Phone: [phone] MCV (RBC) [Entitic vol] 95.7 fL 79.0 - 98.0 fL [facility] Work Phone: 1 Monocytes (Bld) [#/Vol] 1.0 10*3/uL High 0.0 - 0.8 10*3/uL [facility] Work Phone: 1 Monocytes/100 WBC (Bld) 8.9 % 2.0 - 10.0 % [employer] Work Phone: Platelet distribution width (Bld) [Ratio] 15.6 % High 11.5 - 14.5 % [facility] Work Phone: 1 Platelet mean volume (Bld) [Entitic vol] 8.4 fL 7.4 - 10.4 fL [facility] Work Phone: 1 Platelets (Bld) [#/Vol] 188 10*3/uL 140 - 440 10*3/uL [facility] Work Phone: RBC (Bld) [#/Vol] 3.88 10*6/uL 3.80 - 5.2 0 10*6/uL [facility] Work Phone: 1 WBC (Bld) [#/Vol] 11.7 10*3/uL High 3.6 - 10.7 10*3/uL [employer] Work Phone: Test Performed by [facility], [facility] [address] Work Phone: [facility] Work Phone: Lactic Acid, PlasmaOrdered B y: Jorge Mejia on 12-18-2020 Lactate [Moles/Vol] 0.7 mmol/L 0.7 - 2. 0 mmol/L [facility] Work Phone: 1 Test Performed by [facility], [address]va[address] Work Phone: [employer] Work Phone: Sedimentation RateOrdered By : Jorge Mejia on 12-18-2020 Interpretation and review of laboratory results Abnormal [facility] Work Phone: Sed Rate 30 mm/h High 0 - 20 mm/h [facility] Work Phone: Test Performed by [facility], [address] , [place], [place] [address] [facility] Work Phone: [facility] Work Phone: XR KNEE RIGHT (3 VIEWS)Order ed By: Jorge Mejia on 12-18-2020 Patient Name: CHARLIE NGUYEN Diagnostic Radiology ACCESSION EXAM DATE/TIME PROCEDURE ORDERING PROVIDER [id number] 12/18/2020 21:31 EDT CR Knee 3 Views Right MD MEJIA VIJAY CPT code 01518 Reason For Exam (CR Knee 3 Views [...] WENDELL Transcribed Date and Time: 12/18/2020 9:43 [facility] Work Phone: Rodolfo, [facility] Incoming Radiology Results From [facility] - 12/18/2020 9:43 PM EDT Patient Name: CHARLIE NGUYEN Diagnostic Radiology ACCESSION EXAM DATE/TIME PROCEDURE ORDERING PROVIDER [id number] 12/18/2020 21:31 EDT CR Knee 3 Views Right MD MEJIA VIJAY CPT code 97467 Reason For Exam (CR Knee 3 Views Right) swelling Report RIGHT KNEE 3 VIEWS CLINICAL INDICATION: swelling TECHNIQUE: 3 views of the right knee. COMPARISON: December,. FINDINGS: Status post right total knee arthroplasty again noted grossly intact. No acute fracture or dislocation. Generalized soft tissue edema. IMPRESSION: 1. No acute osseous abnormality. 2. Postsurgical change and soft tissue edema. Report Dictated on Workstation: BILLIE --- Final --- Dictating Physician: MD PABLO WENDELL Signed Date and Time: 12/18/2020 9:42 pm Signed by: MD PABLO WENDELL Transcribed Date and Time: 12/18/2020 9:43 [facility] Work Phone: [facility] Work Phone: Basic Metabolic Panelon 09-0 Anion gap [Moles/Vol] 8 mmol/L [place] Calcium [Mass/Vol] 8.1 mg/dL Low 8.4 - 10. 4 mg/dL [place] Chloride [Moles/Vol] 101 mmol/L 98 - 10 7 mmol/L [place] CO2 [Moles/Vol] 26 mmol/L 22 - 30 mmol/L [place] Creatinine [Mass/Vol] 0.56 mg/dL 0.52 - 1.25 mg/dL [place] EGFR IF NonAfrican [place] >90.0 >60 mL/min [place] Comment on above: KDIGO guidelines pro [...] MDRD (S/P/Bld) [Vol rate/Area] mL/min/{1.73_m2} >60 mL/min [place] Glucose [Mass/Vol] 82 mg/dL 70 - 100 mg/dL [place] Interpretation and review of laboratory results Abnormal [place] Potassium [Moles/Vol] 4.2 mmol/L 3.5 - 5.1 mmol/L [place] Sodium [Moles/Vol] 135 mmol/L 135 - 145 mmol/L [place] Urea nitrogen [Mass/Vol] 28 mg/dL High 7 - 20 mg/d L [place] Test Performed by [facility], [address], [place], [place] [address] [place] CBC Auto Differentialon Absolute Baso # 0.1 10*3/uL 0 - 0.2 10*3/uL [place] Absolute Neut # 4.2 10*3/uL 1.8 - 7 10*3/uL [place] Basophils/100 WBC (Bld) 1.1 % 0 - 2 % [place] Eosinophils (Bld) [#/Vol] 0.5 10*3/uL 0 - 0.5 10*3/uL [place] Eosinophils/100 WBC (Bld) 6.4 % High 1 - 6 % [place] Erythrocyte distribution width (RBC) [Ratio] 16.2 % High 11.5 - 14.5 % [place] Granulocytes/100 WBC (Bld) 56.3 % 40 - 80 % [place] Hematocrit (Bld) [Volume fraction] 40.0 % 35 - 47 % [place] Hemoglobin (Bld) [Mass/Vol] 12.6 g/dL 11.7 - 16 g/dL [place] Interpretation and review of laboratory results Abnormal [place] Lymphocytes (Bld) [#/Vol] 1.8 10*3/uL 1 - 4.3 10*3/uL [place] Lymphocytes/100 WBC (Bld) 24.4 % 20 - 40 % [place] MCH (RBC) [Entitic mass] 27.4 pg 26 - 34 pg [place] MCHC (RBC) [Mass/Vol] 31.5 % Low 32 - 36 % [place] MCV (RBC) [Entitic vol] 87.0 fL 79 - 98 fL [place] Monocytes (Bld) [#/Vol] 0.9 10*3/uL High 0 - 0.8 10*3/uL [place] Monocytes/100 WBC (Bld) 11.8 % High 2 - 10 % [place] Platelet mean volume (Bld) [Entitic vol] 8.5 fL 7.4 - 10.4 fL [place] Platelets (Bld) [#/Vol] 291 10*3/uL 140 - 440 10*3/uL [place] RBC (Bld) [#/Vol] 4.60 10*6/uL 3.8 - 5.2 10*6/uL [place] WBC (Bld) [#/Vol] 7.5 10*3/uL 3.6 - 10.7 10*3/uL [place] Test Performed by [facility], [address] [place], [place], [place] [address] [place] Basic Metabolic Panelon 09-0 Anion gap [Moles/Vol] 4 mmol/L [place] Calcium [Mass/Vol] 8.0 mg/dL Low 8.4 - 10. 4 mg/dL [place] Chloride [Moles/Vol] 108 mmol/L High 98 - 10 7 mmol/L [place] CO2 [Moles/Vol] 28 mmol/L 22 - 30 mmol/L [place] Creatinine [Mass/Vol] 0.63 mg/dL 0.52 - 1.25 mg/dL [place] EGFR IF NonAfrican [place] >90.0 >60 mL/min [place] Comment on above: KDIGO guidelines pro [...] MDRD (S/P/Bld) [Vol rate/Area] mL/min/{1.73_m2} >60 mL/min [place] Glucose [Mass/Vol] 90 mg/dL 70 - 100 mg/dL [place] Interpretation and review of laboratory results Abnormal [place] Potassium [Moles/Vol] 4.0 mmol/L 3.5 - 5.1 mmol/L [place] Sodium [Moles/Vol] 140 mmol/L 135 - 145 mmol/L [place] Urea nitrogen [Mass/Vol] 27 mg/dL High 7 - 20 mg/d L [place] Test Performed by [facility], [address] [place] [id number] [place] [address] CBC Auto Differentialon 09-0 Erythrocyte distribution width (RBC) [Ratio] 16.0 % High 11.5 - 14.5 % [place] Hematocrit (Bld) [Volume fraction] 37.6 % 35 - 47 % [place] Hemoglobin (Bld) [Mass/Vol] 11.9 g/dL 11.7 - 16 g/dL [place] Interpretation and review of laboratory results Abnormal [place] MCH (RBC) [Entitic mass] 27.2 pg 26 - 34 pg [place] MCHC (RBC) [Mass/Vol] 31.6 % Low 32 - 36 % [place] MCV (RBC) [Entitic vol] 86.3 fL 79 - 98 fL [place] Platelet mean volume (Bld) [Entitic vol] 8.7 fL 7.4 - 10.4 fL [place] Platelets (Bld) [#/Vol] 298 10*3/uL 140 - 440 10*3/uL [place] RBC (Bld) [#/Vol] 4.36 10*6/uL 3.8 - 5.2 10*6/uL [place] WBC (Bld) [#/Vol] 6.4 10*3/uL 3.6 - 10.7 10*3/uL [place] Test Performed by [facility], [address] [place], [place] [address] [place] COVID-19on 02-02-2020 SARS-CoV-2 Not Detected Expected Result: Not Detected _ Real-time, RT-PCR performed on the GANTEC System by the [facility] Microbiology Service. Negative results do not preclude SARS-CoV-2 infection and should not be used as the sole basis for treatment or other patient management decisions. This assay was developed by [employer] and distributed under an Emergency Use Authorization (EUA) granted by the FDA for the qualitative detection of SARS-CoV-2 nucleic acid. [place] Test Performed by [facility], [address] [place] [id number] Specimen Source Comment:Nasopharyngea l Swab [place] Manual Differentialon 2019 Absolute Baso # 0.0 10*3/uL 0 - 0.2 10*3/uL [place] Absolute Eos # 0.3 10*3/uL 0 - 0.5 10*3/uL [place] Absolute Lymph # 1.7 10*3/uL 1.1 - 4.5 10*3/uL [place] Absolute [place] # 0.8 10*3/uL 0.2 - 1.1 10*3/uL [place] Absolute Neut # 3.6 10*3/uL 2.2 - 8.2 10*3/uL [place] Anisocytosis Ql (Bld) Slight [place] Bands 1 % 0 - 3 % [facility] [place] Basophils 0 % 0 - 2 % [facility] Eosinophils 5 % 1 - 6 % [facility] Hypochromia Slight [facility] Interpretation and review of laboratory results Abnormal [facility] Lymphocytes 27 % 20 - 40 % [facility] Monocytes 12 % High 2 - 10 % [facility] PLATELETS, LARGE Slight [facility] Poikilocytes Slight [facility] RBC morphology finding Nom (Bld) ABNORMAL [facility] Seg Neutrophils 55 % 40 - 80 % [facility] TOTAL CELLS COUNTED 100 [facility] [place] Test Performed by [facility], [address] [place], [place] [address] [facility] [place], [place] Otheron 02-02-2020 Blood Culture, Routine No growth at 5 days. [facility], [place] Test Performed by [facility], [address] [place] [address] Specimen Source Comment:Blood [facility], [place] XR CHEST PORTABLEon 02-02-20 20 [place], [facility] Incoming Radiology Results From [facility] - 02/02/2020 7:39 PM EDT Patient Name: CHARLIE NGUYEN ---Diagnostic Radiology--- Exam Date/Time 02/02/2020 16:25:00 EDT Exam CR Chest Portable Ordering Physician YAMILKA STEWART Accession Number [id number] CPT4 Codes 53118 () Reason For Exam hypoxia Report CHEST [...] --- Final --- Dictating Physician: MD SABRINA, AHMAJoel Signed Date and Time: 02/02/2020 7:37 pm Signed by: MD BENNETT AHMAD Transcribed Date and Time: 02/02/2020 7:38 [place] Patient Name: CHARLIE NGUYEN ---Diagnostic Radiology--- Exam Date/Time 02/02/2020 16:25:00 EDT Exam CR Chest Portable Ordering Physician YAMILKA STEWART Accession Number [id number] CPT4 Codes 53268 () Reason For Exam hypoxia Report CHEST [...] AHMAD Transcribed Date and Time: 02/02/2020 7:38 [place] NM BONE SCAN LIMITEDon 01-31 Patient Name: CHARLIE NGUYEN ---Nuc Med--- Exam Date/Time 02/01/2020 13:27:26 EDT Exam NM Bone Imaging Limited Ordering Physician DEJA KOEHLER Accession Number [id number] CPT4 Codes 93781 () Reason For Exam R TKA pain [...] R Transcribed Date and Time: 02/01/2020 3:37 [place] [facility], [facility] Incoming Radiology Results From [facility] - 02/01/2020 3:38 PM EDT Patient Name: CHARLIE NGUYEN ---Nuc Med--- Exam Date/Time 02/01/2020 13:27:26 EDT Exam NM Bone Imaging Limited Ordering Physician DEJA KOEHLER Accession Number [id number] CPT4 Codes 63950 () Reason For Exam R TKA pain [...] R Transcribed Date and Time: 02/01/2020 3:37 [place] Basic Metabolic Panelon Anion gap [Moles/Vol] 11 mmol/L [place] Calcium [Mass/Vol] 9.0 mg/dL 8.4 - 10. 4 mg/dL [place] Chloride [Moles/Vol] 105 mmol/L 98 - 10 7 mmol/L [place] CO2 [Moles/Vol] 24 mmol/L 22 - 30 mmol/L [place] Creatinine [Mass/Vol] 0.41 mg/dL Low 0.52 - 1.25 mg/dL [place] EGFR IF NonAfrican [place] >90.0 >60 mL/min [place] Comment on above: KDIGO guidelines pro [...] MDRD (S/P/Bld) [Vol rate/Area] mL/min/{1.73_m2} >60 mL/min [place] Glucose [Mass/Vol] 93 mg/dL 70 - 100 mg/dL [place] Interpretation and review of laboratory results Abnormal [place] Potassium [Moles/Vol] 3.7 mmol/L 3.5 - 5.1 mmol/L [place] Sodium [Moles/Vol] 140 mmol/L 135 - 145 mmol/L [place] Urea nitrogen [Mass/Vol] 8 mg/dL 7 - 20 mg/d L [place] Test Performed by [facility], [address] [place], [place], [place] [address] [place] C-Reactive Proteinon 020 CRP [Mass/Vol] 21.7 mg/L High 0 - 6 mg/L [place] Comment on above: . Interpretation and review of laboratory results Abnormal [place] Test Performed by [facility], [address], [place], [place] [address] [place] CBC Auto Differentialon 09-0 -2019 Absolute Baso # 0.1 10*3/uL 0 - 0.2 10*3/uL [place] Absolute Neut # 2.8 10*3/uL 1.8 - 7 10*3/uL [place] Basophils/100 WBC (Bld) 1.0 % 0 - 2 % [place] Eosinophils (Bld) [#/Vol] 0.3 10*3/uL 0 - 0.5 10*3/uL [place] Eosinophils/100 WBC (Bld) 5.4 % 1 - 6 % [place] Erythrocyte distribution width (RBC) [Ratio] 15.8 % High 11.5 - 14.5 % [place] Granulocytes/100 WBC (Bld) 49.4 % 40 - 80 % [place] Hematocrit (Bld) [Volume fraction] 36.8 % 35 - 47 % [place] Hemoglobin (Bld) [Mass/Vol] 11.8 g/dL 11.7 - 16 g/dL [place] Interpretation and review of laboratory results Abnormal [place] Lymphocytes (Bld) [#/Vol] 1.9 10*3/uL 1 - 4.3 10*3/uL [place] Lymphocytes/100 WBC (Bld) 33.6 % 20 - 40 % [place] MCH (RBC) [Entitic mass] 27.6 pg 26 - 34 pg [place] MCHC (RBC) [Mass/Vol] 31.9 % Low 32 - 36 % [place] MCV (RBC) [Entitic vol] 86.4 fL 79 - 98 fL [place] Monocytes (Bld) [#/Vol] 0.6 10*3/uL 0 - 0.8 10*3/uL [place] Monocytes/100 WBC (Bld) 10.6 % High 2 - 10 % [place] Platelet mean volume (Bld) [Entitic vol] 8.4 fL 7.4 - 10.4 fL [place] Platelets (Bld) [#/Vol] 264 10*3/uL 140 - 440 10*3/uL [place] RBC (Bld) [#/Vol] 4.26 10*6/uL 3.8 - 5.2 10*6/uL [place] WBC (Bld) [#/Vol] 5.6 10*3/uL 3.6 - 10.7 10*3/uL [place] Test Performed by [facility], [address] [place], [place] [address] [place] Sedimentation Rateon 020 Interpretation and review of laboratory results Abnormal [place] Sed Rate 38 mm/h High 0 - 20 mm/h [place] Test Performed by [facility], [address] [place], [place] [id number] [place] [address] Basic Metabolic Panelon 01-01 Anion gap [Moles/Vol] 8 mmol/L [place] Calcium [Mass/Vol] 8.0 mg/dL Low 8.4 - 10. 4 mg/dL [place] Chloride [Moles/Vol] 108 mmol/L High 98 - 10 7 mmol/L [place] CO2 [Moles/Vol] 25 mmol/L 22 - 30 mmol/L [place] Creatinine [Mass/Vol] 0.4 mg/dL Low 0.52 - 1.25 mg/dL [place] EGFR IF NonAfrican [place] >90.0 >60 mL/min [place] Comment on above: KDIGO guidelines pro [...] MDRD (S/P/Bld) [Vol rate/Area] mL/min/{1.73_m2} >60 mL/min [place] Glucose [Mass/Vol] 95 mg/dL 70 - 100 mg/dL [place] Interpretation and review of laboratory results Abnormal [place] Potassium [Moles/Vol] 3.9 mmol/L 3.5 - 5.1 mmol/L [place] Sodium [Moles/Vol] 140 mmol/L 135 - 145 mmol/L [place] Urea nitrogen [Mass/Vol] 13 mg/dL 7 - 20 mg/d L [place] Test Performed by [facility], [address], [place] [address] [place] CBC Auto Differentialon 08-3 Absolute Baso # 0.1 10*3/uL 0 - 0.2 10*3/uL [place] Absolute Neut # 4.6 10*3/uL 1.8 - 7 10*3/uL [place] Basophils/100 WBC (Bld) 1.1 % 0 - 2 % [place] Eosinophils (Bld) [#/Vol] 0.5 10*3/uL 0 - 0.5 10*3/uL [place] Eosinophils/100 WBC (Bld) 6.6 % High 1 - 6 % [place] Erythrocyte distribution width (RBC) [Ratio] 16.4 % High 11.5 - 14.5 % [place] Granulocytes/100 WBC (Bld) 60.9 % 40 - 80 % [place] Hematocrit (Bld) [Volume fraction] 32.0 % Low 35 - 47 % [place] Hemoglobin (Bld) [Mass/Vol] 10.1 g/dL Low 11.7 - 16 g/dL [place] Interpretation and review of laboratory results Abnormal [place] Lymphocytes (Bld) [#/Vol] 1.7 10*3/uL 1 - 4.3 10*3/uL [place] Lymphocytes/100 WBC (Bld) 22.6 % 20 - 40 % [place] MCH (RBC) [Entitic mass] 27.9 pg 26 - 34 pg [place] MCHC (RBC) [Mass/Vol] 31.5 % Low 32 - 36 % [place] MCV (RBC) [Entitic vol] 88.6 fL 79 - 98 fL [place] Monocytes (Bld) [#/Vol] 0.7 10*3/uL 0 - 0.8 10*3/uL [place] Monocytes/100 WBC (Bld) 8.8 % 2 - 10 % [place] Platelet mean volume (Bld) [Entitic vol] 8.9 fL 7.4 - 10.4 fL [place] Platelets (Bld) [#/Vol] 257 10*3/uL 140 - 440 10*3/uL [place] RBC (Bld) [#/Vol] 3.62 10*6/uL Low 3.8 - 5.2 10*6/uL [place] WBC (Bld) [#/Vol] 7.5 10*3/uL 3.6 - 10.7 10*3/uL [place] Test Performed by [facility], [address], [place], [place] [address] [place] [address] C. difficile toxin Molecular on 01-29-2020 C. difficile toxin Molecular NEGATIVE Methodology - Real Time PCR (Veeda) Clinical judgement must be used when interpreting results. Positive results may reflect colonization. Indeterminate results suggest a new specimen be submitted. [place] Gastrointestinal Panel by MEI Nunn 01-29-2020 Gastrointestinal PCR Panel NEGATIVE: No targets were detected by the [employer] Gastrointestinal PCR Panel. _ The [employer] Gastrointestinal PCR Panel can detect the following targets: Campylobacter, Plesiomonas shigelloides, Salmonella, Vibrio species, Vibrio cholerae, Yersinia enterocolitica, Shiga toxin-producing E coli (STEC) including E coli O157, Enterotoxigenic E coli (ETEC), Shigella/Enteroinvasi ve E coli (EIEC), Cryptosporidium, Cyclospora cayetanensis, Entamoeba histolytica, Giardia lamblia, Adenovirus F 40/41, Astrovirus, Norovirus GI/GII, Rotavirus A, Sapovirus [place] Otheron 01-29-2020 Test Performed by [facility], [address] [place] [address] Specimen Source Comment:Stool [place] XR Knee Bilateral Standardon 01-29-2020 Patient Name: CHARLIE NGUYEN ---Diagnostic Radiology--- Exam Date/Time 01/29/2020 14:05:00 EDT Exam CR Knee 3 Views Bilateral Ordering Physician KILEY PARKINSON Accession Number [id number] CPT4 Codes 24299 () Reason For Exam fall, knee pain [...] KEVIN Transcribed Date and Time: 01/29/2020 3:27 [place], [facility] Incoming Radiology Results From [facility] - 01/29/2020 3:27 PM EDT Patient Name: CHARLIE NGUYEN ---Diagnostic Radiology--- Exam Date/Time 01/29/2020 14:05:00 EDT Exam CR Knee 3 Views Bilateral Ordering Physician KILEY PARKINSON Accession Number [id number] CPT4 Codes 74644 () Reason For Exam fall, knee pain [...] KEVIN Transcribed Date and Time: 01/29/2020 3:27 [place] Add On Lab Teston 01-28-2020 Sodium [Moles/Vol] Rejected [place] Test Performed by [facility], [facility] [address] CBC auto differentialon 12-31 Erythrocyte distribution width (RBC) [Ratio] 16.2 % High 11.5 - 14.5 % [place] Hematocrit (Bld) [Volume fraction] 37.0 % 35 - 47 % [place] Hemoglobin (Bld) [Mass/Vol] 11.8 g/dL 11.7 - 16 g/dL [place] Interpretation and review of laboratory results Abnormal [place] MCH (RBC) [Entitic mass] 28.0 pg 26 - 34 pg [place] MCHC (RBC) [Mass/Vol] 31.8 % Low 32 - 36 % [place] MCV (RBC) [Entitic vol] 88.1 fL 79 - 98 fL [place] Platelet mean volume (Bld) [Entitic vol] 8.5 fL 7.4 - 10.4 fL [place] Platelets (Bld) [#/Vol] 280 10*3/uL 140 - 440 10*3/uL [place] RBC (Bld) [#/Vol] 4.20 10*6/uL 3.8 - 5.2 10*6/uL [place] WBC (Bld) [#/Vol] 9.1 10*3/uL 3.6 - 10.7 10*3/uL [place] Test Performed by [facility], [address] [place] [address] [place] Comprehensive Metabolic Pane l w/ Reflex to MGon 01-28-2020 Albumin [Mass/Vol] 3.4 g/dL Low 3.5 - 5 g/dL [place] ALP [Catalytic activity/Vol] 98 U/L 38 - 126 U/L [place] ALT [Catalytic activity/Vol] 13 U/L 0 - 34 U/L [place] Comment on above: The ALT test is perf ormed by an updated assay method. Please note that the reference intervals have been changed and are now sex specific. Anion gap [Moles/Vol] 6 mmol/L [place] AST [Catalytic activity/Vol] 26 U/L 15 - 46 U/L [place] Bilirubin Ql (U) 0.3 mg/dL 0.2 - 1.3 mg/dL [place] Calcium [Mass/Vol] 8.0 mg/dL Low 8.4 - 10. 4 mg/dL [place] Chloride [Moles/Vol] 102 mmol/L 98 - 10 7 mmol/L [place] CO2 [Moles/Vol] 30 mmol/L 22 - 30 mmol/L [place] Creatinine [Mass/Vol] 0.46 mg/dL Low 0.52 - 1.25 mg/dL [place] EGFR IF NonAfrican [place] >90.0 >60 mL/min [place] Comment on above: KDIGO guidelines pro [...] MDRD (S/P/Bld) [Vol rate/Area] mL/min/{1.73_m2} >60 mL/min [place] Glucose [Mass/Vol] 91 mg/dL 70 - 100 mg/dL [place] Interpretation and review of laboratory results Abnormal [place] Potassium [Moles/Vol] 3.2 mmol/L Low 3.5 - 5.1 mmol/L [place] Protein [Mass/Vol] 7.1 g/dL 6.3 - 8.2 g/dL [place] Sodium [Moles/Vol] 138 mmol/L 135 - 145 mmol/L [place] Urea nitrogen [Mass/Vol] 20 mg/dL 7 - 20 mg/d L [place] Test Performed by [facility], [address] [place], [address] EKG 12 Lead - Chest Painon 0 01-28-2020 [facility] Test Date: 2020-01-27 Pat Name: Charlie Nguyen Department: 01 Room: 260 Gender: F Clinical Laboratory Manager: GISELLE : 1955 Requested By: LEW JOHNSON Order Number: [id number] Reading MD: Sulaiman Jc Measurements Intervals Turner Rate: 53 P: [place]: QRS: -4 QRSD: 106 T: 244 QT: 476 QTc: 447 Interpretive Statements SINUS BRADYCARDIA BORDERLINE INTRAVENTRICULAR CONDUCTION DELAY BORDERLINE REPOLARIZATION ABNORMALITY Electronically Signed On 01-28-2020 13:03:43 EDT by Sulaim[place], [facility] Incoming Cardiology Results From [facility] - 01/28/2020 1:04 PM EDT [facility] Test Date: 2020-01-27 Pat Name: Charlie Nguyen Department: 01 Room: 260 Gender: F Clinical Laboratory Manager: GISELLE : 1955 Requested By: LEW JOHNSON Order Number: [id number] Reading MD: Sulaiman Jc Measurements Intervals Turner Rate: 53 P: [place]: QRS: -4 QRSD: 106 T: 244 QT: 476 QTc: 447 Interpretive Statements SINUS BRADYCARDIA BORDERLINE INTRAVENTRICULAR CONDUCTION DELAY BORDERLINE REPOLARIZATION ABNORMALITY Electronically Signed On 01-28-2020 13:03:43 EDT by Sulaiman Jc [place] Magnesiumon 01-28-2020 Magnesium [Mass/Vol] 1.7 mg/dL 1.6 - 2 .3 mg/dL [place] Test Performed by [facility], [address] [facility] [address] [place], [place] [id number] [place] [address] Manual Differentialon 2019 Absolute Baso # 0.0 10*3/uL 0 - 0.2 10*3/uL [place] Absolute Eos # 0.1 10*3/uL 0 - 0.5 10*3/uL [place] Absolute Lymph # 1.4 10*3/uL 1.1 - 4.5 10*3/uL [place] Absolute [place] # 0.5 10*3/uL 0.2 - 1.1 10*3/uL [place] Absolute Neut # 7.1 10*3/uL 2.2 - 8.2 10*3/uL [facility], [place] Anisocytosis Ql (Bld) Slight [facility], [place] Bands 0 % 0 - 3 % [facility], [place] Basophils 0 % 0 - 2 % [facility], [place] Eosinophils 1 % 1 - 6 % [facility], [place] Hypochromia Slight [place] Interpretation and review of laboratory results Abnormal [place] Lymphocytes 15 % Low 20 - 40 % [facility], [place] Monocytes 6 % 2 - 10 % [facility], [place] Poikilocytes Slight [facility], [place] Polychromasia [place]light [place] RBC morphology finding Nom (Bld) ABNORMAL [place] Seg Neutrophils 78 % 40 - 80 % [place] TOTAL CELLS COUNTED 100 [place] TOXIC VACUOLES [place] Test [facility], [address] [place] [address] Str[address] [place], [place], [place] [address] [place] ACETAMINOPHEN LEVELon 2019 Acetaminophen [Mass/Vol] <10.0 10 - 30 ug/mL [place] CBC Auto Differentialon 12-31 Absolute Baso # 0.2 10*3/uL 0 - 0.2 10*3/uL [place] Absolute Neut # 7.0 10*3/uL 1.8 - 7 10*3/uL [place] Basophils/100 WBC (Bld) 1.4 % 0 - 2 % [place] Eosinophils (Bld) [#/Vol] 0.4 10*3/uL 0 - 0.5 10*3/uL [place] Eosinophils/100 WBC (Bld) 3.5 % 1 - 6 % [place] Erythrocyte distribution width (RBC) [Ratio] 16.2 % High 11.5 - 14.5 % [place] Granulocytes/100 WBC (Bld) 67.4 % 40 - 80 % [place] Hematocrit (Bld) [Volume fraction] 38.0 % 35 - 47 % [place] Hemoglobin (Bld) [Mass/Vol] 12.2 g/dL 11.7 - 16 g/dL [place] Lymphocytes (Bld) [#/Vol] 2.2 10*3/uL 1 - 4.3 10*3/uL [place] Lymphocytes/100 WBC (Bld) 21.4 % 20 - 40 % [place] MCH (RBC) [Entitic mass] 27.8 pg 26 - 34 pg [place] MCHC (RBC) [Mass/Vol] 32.0 % 32 - 36 % [place] MCV (RBC) [Entitic vol] 86.7 fL 79 - 98 fL [place] Monocytes (Bld) [#/Vol] 0.7 10*3/uL 0 - 0.8 10*3/uL [place] Monocytes/100 WBC (Bld) 6.3 % 2 - 10 % [place] Platelet mean volume (Bld) [Entitic vol] 8.4 fL 7.4 - 10.4 fL [place] Platelets (Bld) [#/Vol] 318 10*3/uL 140 - 440 10*3/uL [place] RBC (Bld) [#/Vol] 4.38 10*6/uL 3.8 - 5.2 10*6/uL [place] WBC (Bld) [#/Vol] 10.5 10*3/uL 3.6 - 10.7 10*3/uL [place] CKon 01-27-2020 Total CK 31 U/L 30 - 170 U/L [place] CT Head WO Contraston 2019 Patient Name: CHARLIE NGUYEN ---CT--- Exam Date/Time 01/27/2020 17:32:[address] Head or Brain w/o Contrast Ordering Physician BENJAMIN JOHNSON DANIEL M Accession Number [id number] CPT4 Codes 68707 () Reason For Exam weakness, found on [...] WENDELL Transcribed Date and Time: 01/27/2020 5:41 [place], [facility] Incoming Radiology Results From [facility] - 01/27/2020 5:41 PM EDT Patient Name: CHARLIE NGUYEN ---CT--- Exam Date/Time 01/27/2020 17:32:[address] Head or Brain w/o Contrast Ordering Physician BENJAMIN JOHNSON DANIEL M Accession Number [id number] CPT4 Codes 21542 () Reason For Exam weakness, found on [...] WENDELL Transcribed Date and Time: 01/27/2020 5:41 [place] Comprehensive Metabolic Pane rafiq 01-27-2020 Albumin [Mass/Vol] 3.5 g/dL 3.5 - 5 g/dL [place] ALP [Catalytic activity/Vol] 102 U/L 38 - 126 U/L [place] ALT [Catalytic activity/Vol] 14 U/L 0 - 34 U/L [place] Comment on above: The ALT test is perf ormed by an updated assay method. Please note that the reference intervals have been changed and are now sex specific. Anion gap [Moles/Vol] 6 mmol/L [place] AST [Catalytic activity/Vol] 26 U/L 15 - 46 U/L [place] Bilirubin Ql (U) 0.4 mg/dL 0.2 - 1.3 mg/dL [place] Calcium [Mass/Vol] 8.5 mg/dL 8.4 - 10. 4 mg/dL [place] Chloride [Moles/Vol] 98 mmol/L 98 - 10 7 mmol/L [place] CO2 [Moles/Vol] 35 mmol/L High 22 - 30 mmol/L [place] Creatinine [Mass/Vol] 0.61 mg/dL 0.52 - 1.25 mg/dL [place] EGFR IF NonAfrican [place] >90.0 >60 mL/min [place] Comment on above: KDIGO guidelines pro [...] MDRD (S/P/Bld) [Vol rate/Area] mL/min/{1.73_m2} >60 mL/min [place] Glucose [Mass/Vol] 100 mg/dL 70 - 100 mg/dL [place] Potassium [Moles/Vol] 2.6 mmol/L Critically low 3.5 - 5.1 mmol/L [place] Protein [Mass/Vol] 7.3 g/dL 6.3 - 8.2 g/dL [place] Sodium [Moles/Vol] 140 mmol/L 135 - 145 mmol/L [place] Urea nitrogen [Mass/Vol] 26 mg/dL High 7 - 20 mg/d L [place] Test Performed by [facility], [address] Magnesiumon 01-27-2020 Magnesium [Mass/Vol] 1.8 mg/dL 1.6 - 2 .3 mg/dL [place] Otheron 01-27-2020 Interpretation and review of laboratory results Abnormal [place] Test Performed by [facility], [address] Test Performed by [facility], [address] Salicylateon 01-27-2020 Salicylate Lvl <1.0 0 - 20 mg/dL [place] Troponinon 01-27-2020 Troponin I.cardiac [Mass/Vol] ng/mL 0 - 0.034 ng/mL [place] Comment on above: . Test Performed by [facility], [address] Urinalysison 01-27-2020 AMORPHOUS CRYSTAL Few Abnormal Negative /[HPF] [place] Comment on above: . Appearance (U) Ex.Turbid Abnormal Clear NA [place] Comment on above: . Bacteria, UA Few Abnormal Negative /[HPF] [place] Comment on above: . Bilirubin Urine Negative Negative mg/dL [place] Comment on above: . Color (U) Yellow Lt. Yellow NA [place] Comment on above: . Glucose, Ur Normal Normal (<70) mg/dL [place] Comment on above: . Interpretation and review of laboratory results Abnormal [place] Ketones Ql (U) 10 mg/dL Abnormal Negative [place] Comment on above: . LEUKOCYTES, UA 500 Abnormal Negative Simon/uL [place] Comment on above: . Nitrite, Urine Negative Negative NA [place] Comment on above: . Non-Squamous Epithelial 2 /[HPF] Abnormal Negative [place] Comment on above: . Occult Blood,Urine 0.2 mg/dL Abnormal Negative [place] Comment on above: . pH (U) 6.5 [pH] [place] Comment on above: . Protein (U) [Mass/Vol] 70 mg/dL Abnormal Negative [place] Comment on above: . RBC (U) [#/Vol] 11-25 Abnormal 0 - 2 /[HPF] [place] Comment on above: . Specific [place], Urine 1.025 [place] Comment on above: . Urobilinogen, Urine Normal Normal ( 0-1) mg/dL [place] Comment on above: . WBC Clumps, Urine Moderate Abnormal Negative /[HPF] [place] Comment on above: . WBC, UA >100 Abnormal 0 - 5 /[HPF] [place] Comment on above: . Test [facility], [address] [place], [place] [address] [place] Urine Drug Screenon 01-27-20 20 Amphetamines, urine Negative [place] Barbiturates, Ur Negative [place] Benzodiazepine Ur Qual Positive [place] Cocaine Metabolites, Ur Negative [place], [place] Methadone, Urine Negative [place] Opiates, Urine Negative [place] Oxycodone Screen, Ur Negative [place] PCP, Urine Negative [place] Comment on above: The expected value [...] confirmation under separate order. Test Performed by [facility], [address] [place], [place], [place] [address] [place] XR CHEST PORTABLEon 01-27-20 [place], [facility] Incoming Radiology Results From [facility] - 01/27/2020 6:12 PM EDT Patient Name: CHARLIE NGUYEN ---Diagnostic Radiology--- Exam Date/Time 01/27/2020 17:38:59 EDT Exam CR Chest Portable Ordering Physician BENJAMIN JOHNSON DANIEL M Accession Number [id number] CPT4 Codes 56941 () Reason For Exam weakness, cough Report [...] WENDELL Transcribed Date and Time: 01/27/2020 6:12 [place] Patient Name: CHARLIE NGUYEN ---Diagnostic Radiology--- Exam Date/Time 01/27/2020 17:38:59 EDT Exam CR Chest Portable Ordering Physician BENJAMIN JOHNSON DANIEL M Accession Number [id number] CPT4 Codes 90895 () Reason For Exam weakness, cough Report [...] WENDELL Transcribed Date and Time: 01/27/2020 6:12 [place] Sed Rateon 12-06-2019 Sed Rate 35 mm/hr High 0-20 [facility] Comment on above: Performed By: #### E SR #### [place] [address] CRPon 12-05-2019 CRP [Mass/Vol] 2.4 mg/dL High 0.0-0.8 [facility] Comment on above: Performed By: #### C RP3 #### [place] [address] Comprehensive Metabolic Pane rafiq 12-05-2019 Albumin [Mass/Vol] 3.5 g/dL Low 3.9-4.9 [facility] Comment on above: Performed By: #### C MP #### [place] [address] ALP [Catalytic activity/Vol] 75 U/L Normal 34-123 [facility] Comment on above: Performed By: #### C MP #### [place] [address] ALT [Catalytic activity/Vol] U/L Low 7-38 [facility] Comment on above: Performed By: #### C MP #### [place] [address] Anion gap [Moles/Vol] 10 mmol/L Normal 9-18 [facility] Comment on above: Performed By: #### C MP #### [place] [address] AST [Catalytic activity/Vol] 16 U/L Normal 13-35 [facility] Comment on above: Performed By: #### C MP #### [facility] [address] [place], [place] [address] Bilirubin [Mass/Vol] 0.2 mg/dL Normal 0.2-1.3 [facility] Comment on above: Performed By: #### C MP #### [facility] [address] [place], [place] [address] Calcium [Mass/Vol] 8.6 mg/dL Normal 8.5-10.2 [facility] Comment on above: Performed By: #### C MP #### [facility] [place] [facility] [address] [place], [place] [address] Chloride [Moles/Vol] 98 mmol/L Normal 97-105 [facility] Comment on above: Performed By: #### C MP #### [facility] [address] [place], [place] [address] CO2 Blood 27 mmol/L Normal 22-30 [facility] Comment on above: Performed By: #### C MP #### [facility] [place] [facility] [address] [place], [place] [address] Creatinine [Mass/Vol] 0.45 mg/dL Low 0.58-0.96 [facility] Comment on above: Performed By: #### C MP #### [facility] [place] [facility] [address] [place], [place] [address] Glucose [Mass/Vol] 79 mg/dL Normal 74-99 [facility] Comment on above: Result Comment: The [...] 1). Performed By: #### C MP #### [facility] [place] [facility] [address] [place] [address] Potassium [Moles/Vol] 4.0 mmol/L Normal 3.7-5.1 [facility] Comment on above: Performed By: #### C MP #### [facility] [address] [place] [address] Protein [Mass/Vol] 7.1 g/dL Normal 6.3-8.0 [facility] Comment on above: Performed By: #### C MP #### [facility] [address] [place] [address] Sodium [Moles/Vol] 135 mmol/L Low 136-144 [facility] Comment on above: Performed By: #### C MP #### [facility] [address] [place] [address] Urea nitrogen [Mass/Vol] 12 mg/dL Normal 7-21 [facility] Comment on above: Performed By: #### C MP #### [facility] [address] [place] [address] Hemogram/Diffon 12-05-2019 Abs Immature Grans 0.03 thou/cmm Normal 0.00-0.05 [facility] Comment on above: Performed By: #### C BCD1 #### [facility] [address] [place] [address] Abs Neut (ANC) 5.08 thou/cmm Normal 1.56-6.13 [facility] Comment on above: Performed By: #### C BCD1 #### [facility] [address] [place] [address] Abs. Baso 0.07 thou/cmm Normal 0.01-0.08 [facility] Comment on above: Performed By: #### C BCD1 #### [facility] [address] [place] [address] Abs. [place] 0.74 thou/cmm High 0.27-0.70 [facility] Comment on above: Performed By: #### C BCD1 #### [facility] [address] [place], [place] [address] Basophils/100 WBC (Bld) 0.8 % Normal [facility] Comment on above: Performed By: #### C BCD1 #### [facility] [address] [place], [place] [address] Eosinophils (Bld) [#/Vol] 0.57 thou/cmm High 0.00-0.31 [facility] Comment on above: Performed By: #### C BCD1 #### [facility] [address] [place], [place] [address] Eosinophils/100 WBC (Bld) 6.6 % Normal [facility] Comment on above: Performed By: #### C BCD1 #### [facility] [address] [place], [place] [address] Erythrocyte distribution width (RBC) [Ratio] 15.0 % High 11.7-14.4 [facility] Comment on above: Performed By: #### C BCD1 #### [facility] [address] [place] [address] Hematocrit (Bld) [Volume fraction] 34.9 % Normal 34.1-44.9 [facility] Comment on above: Performed By: #### C BCD1 #### [facility] [address] [place], [place] [address] Hemoglobin (Bld) [Mass/Vol] 10.8 g/dL Low 11.2-15.7 [facility] Comment on above: Performed By: #### C BCD1 #### [facility] [address] [place] [address] Immature Grans 0.30 % Normal [facility] Comment on above: Performed By: #### C BCD1 #### [facility] [address] [place], [place] [address] Lymphocytes (Bld) [#/Vol] 2.20 thou/cmm Normal 1.18-3.74 [facility] Comment on above: Performed By: #### C BCD1 #### [facility] [address] [place], [place] [address] Lymphocytes/100 WBC (Bld) 25.3 % Normal [facility] Comment on above: Performed By: #### C BCD1 #### [facility] [address] [place] [address] MCH (RBC) [Entitic mass] 29.8 pg Normal 25.6-32.2 [facility] Comment on above: Performed By: #### C BCD1 #### [facility] [address] [place] [address] MCHC (RBC) [Mass/Vol] 30.9 % Low 31.6-34.8 [facility] Comment on above: Performed By: #### C BCD1 #### [facility] [address] [place] [address] MCV (RBC) [Entitic vol] 96.1 fL High 79.4-94.8 [facility] Comment on above: Performed By: #### C BCD1 #### [facility] [address] [place] [address] Monocytes/100 WBC (Bld) 8.5 % Normal [facility] Comment on above: Performed By: #### C BCD1 #### [facility] [address] [place] [address] Platelet mean volume (Bld) [Entitic vol] 10.3 fL Normal 9.4-12.3 [facility] Comment on above: Performed By: #### C BCD1 #### [facility] [address] [place] [address] Platelets (Bld) [#/Vol] 428 thou/cmm High 182-369 [facility] Comment on above: Performed By: #### C BCD1 #### [facility] [address] [place] [address] RBC (Bld) [#/Vol] 3.63 mil/cmm Low 3.93-5.22 [facility] Comment on above: Performed By: #### C BCD1 #### [facility] [address] [place] [address] RDW SD 53.2 fl High 36.4-46.3 [facility] Comment on above: Performed By: #### C BCD1 #### [facility] [address] [place] [address] Seg Neutrophil 58.5 % Normal [facility] Comment on above: Performed By: #### C BCD1 #### [facility] [address] [place] [address] WBC (Bld) [#/Vol] 8.69 thou/cmm Normal 3.98-10.04 [facility] Comment on above: Performed By: #### C BCD1 #### [facility] [address] [place] [address] MDRD GFRon 12-05-2019 GFR/1.73 sq M predicted among non-blacks MDRD (S/P/Bld) [Vol rate/Area] mL/min/{1.73_m2} Normal >60mL/min/1. 73m2 [facility] Comment on above: Result Comment: If t he patient is , multiply the result by 1.210. Performed By: #### G FR #### [place] [address] Add On Lab Teston 11-04-2019 Sodium [Moles/Vol] Accepted [place] Comment on above: Specimen available & acceptable for analysis. Test Performed by [id number] [place] [address] Basic Metabolic Panelon Anion gap [Moles/Vol] 8 mmol/L [place] Calcium [Mass/Vol] 9.1 mg/dL 8.4 - 10. 4 mg/dL [place] Chloride [Moles/Vol] 96 mmol/L Low 98 - 10 7 mmol/L [place] CO2 [Moles/Vol] 32 mmol/L High 22 - 30 mmol/L [place] Creatinine [Mass/Vol] 0.6 mg/dL 0.52 - 1.25 mg/dL [place] EGFR IF NonAfrican [place] >90.0 >60 mL/min [place] Comment on above: KDIGO guidelines pro [...] MDRD (S/P/Bld) [Vol rate/Area] mL/min/{1.73_m2} >60 mL/min [place] Glucose [Mass/Vol] 133 mg/dL High 70 - 100 mg/dL [place] Potassium [Moles/Vol] 3.4 mmol/L Low 3.5 - 5.1 mmol/L [place] Sodium [Moles/Vol] 137 mmol/L 135 - 145 mmol/L [place] Urea nitrogen [Mass/Vol] 22 mg/dL High 7 - 20 mg/d L [place] Body Fluid Cell Count with D ifferentialon 11-04-2019 Nucl Cell, Fluid 39831 {cells}/uL [place] Sodium [Moles/Vol] SYNOVIAL [place] Test Performed by [address] [address] [place] Body Fluid Crystalon 020 Crystals LM Nom (Urine sed) Negative [place] Sodium [Moles/Vol] Synovial [place] Test Performed by [facility] [address] [address] [place] C-Reactive Proteinon 020 CRP [Mass/Vol] 41.4 mg/L High 0 - 6 mg/L [place] Comment on above: . Differential, Body Fluidon 0 11-04-2019 Eosinophils/100 WBC (Bld) 0 % [place] Comment on above: CORRECTED RESULT...P revious above value was 6, verified on 11/04/19 at 16:51 by [email or web address] . Lymphocytes/100 WBC (Bld) 1 % [place] Comment on above: CORRECTED RESULT...P revious above value was 4, verified on 11/04/19 at 16:51 by [email or web address] . Macrophage count 3 % [place] Comment on above: CORRECTED RESULT...P revious above value was 2, verified on 11/04/19 at 16:51 by [email or web address] . Neutrophils/100 WBC (Bld) 96 % [place] Comment on above: CORRECTED RESULT...P revious above value was 87, verified on 11/04/19 at 16:51 by [email or web address] . Other Cells, Fluid 0 % [place] Comment on above: all other cells are synovial lining cells CORRECTED RESULT...Previous above value was 1, verified on 11/04/19 at 16:52 by [email or web address] . Sodium [Moles/Vol] 100 mmol/L [place] Test Performed by [facility], [address] [place] [address] [place] GRAM STAINon 11-04-2019 INR Coag (Bld) [Relative time] Many polymorphonuclear cells/lpf. No organisms seen. [place] Test Performed by [facility], [address] [place] [id number] Specimen Source Comment:Leg [place] Hemogram (CBC) w/Auto Diffon 11-04-2019 Absolute Baso # 0.0 10*3/uL 0 - 0.2 10*3/uL [place] Absolute Neut # 5.8 10*3/uL 1.8 - 7 10*3/uL [place] Basophils/100 WBC (Bld) 0.4 % 0 - 2 % [place] Eosinophils (Bld) [#/Vol] 0.2 10*3/uL 0 - 0.5 10*3/uL [place] Eosinophils/100 WBC (Bld) 2.8 % 1 - 6 % [place] Erythrocyte distribution width (RBC) [Ratio] 15.6 % High 11.5 - 14.5 % [place] Granulocytes/100 WBC (Bld) 71.8 % 40 - 80 % [place] Hematocrit (Bld) [Volume fraction] 33.7 % Low 35 - 47 % [place] Hemoglobin (Bld) [Mass/Vol] 11.4 g/dL Low 11.7 - 16 g/dL [place] Interpretation and review of laboratory results Abnormal [place] Lymphocytes (Bld) [#/Vol] 1.3 10*3/uL 1 - 4.3 10*3/uL [place] Lymphocytes/100 WBC (Bld) 16.4 % Low 20 - 40 % [place] MCH (RBC) [Entitic mass] 31.9 pg 26 - 34 pg [place] MCHC (RBC) [Mass/Vol] 33.7 % 32 - 36 % [place] MCV (RBC) [Entitic vol] 94.5 fL 79 - 98 fL [place] Monocytes (Bld) [#/Vol] 0.7 10*3/uL 0 - 0.8 10*3/uL [place] Monocytes/100 WBC (Bld) 8.6 % 2 - 10 % [place] Platelet mean volume (Bld) [Entitic vol] 7.8 fL 7.4 - 10.4 fL [place] Platelets (Bld) [#/Vol] 440 10*3/uL 140 - 440 10*3/uL [place] RBC (Bld) [#/Vol] 3.57 10*6/uL Low 3.8 - 5.2 10*6/uL [place] WBC (Bld) [#/Vol] 8.1 10*3/uL 3.6 - 10.7 10*3/uL [place] Test Performed by [facility], [address] [place] [address] [place] Metabolic Panelon 11-04-2019 Sodium [Moles/Vol] Negative [place] Otheron 11-04-2019 Interpretation and review of laboratory results Abnormal [place] Test Performed by [id number] [place] [address] Protime-INRon 11-04-2019 INR Coag (PPP) [Relative time] 1.0 {INR} [place] Comment on above: Recommended Anticoag ulant [...] [Time] 11.1 s 9 - 12 s [place] Comment on above: . Test Performed by [facility], [address] [place] [address] Sedimentation Rateon 020 Sed Rate 96 mm/h High 0 - 20 mm/h [place] TYPE AND SCREENon 11-04-2019 Sodium [Moles/Vol] AB [place] Test Performed by [address] XR CHEST PORTABLEon 11-04-19 20 [facility], [facility] 11/04/2019 7:34 PM EDT Patient Name: CHARLIE NGUYEN ---Diagnostic Radiology--- Exam Date/Time 11/04/2019 19:28:19 EDT Exam CR Chest Portable Ordering Physician DO BOWLES DORSEY R Accession Number [id number] CPT4 Codes 22618 () Reason For Exam pre-op Report Portable [...] BRIAN Transcribed Date and Time: 11/04/2019 7:32 [place] Patient Name: CHARLIE NGUYEN ---Diagnostic Radiology--- Exam Date/Time 11/04/2019 19:28:19 EDT Exam CR Chest Portable Ordering Physician DO BOWLES DORSEY R Accession Number [id number] CPT4 Codes 50344 () Reason For Exam pre-op Report Portable [...] BRIAN Transcribed Date and Time: 11/04/2019 7:32 [place] XR KNEE RIGHT (3 VIEWS)on [facility], [facility] Incoming Radiology Results From [facility] - 11/04/2019 2:47 PM EDT Patient Name: CHARLIE NGUYEN ---Diagnostic Radiology--- Exam Date/Time 11/04/2019 14:47:22 EDT Exam CR Knee 3 Views Right Ordering Physician DAVID JIMÉNEZ Accession Number [id number] CPT4 Codes 87839 () Reason For Exam right knee pain [...] RISA Transcribed Date and Time: 11/04/2019 2:14 [place] Patient Name: CHARLIE NGUYEN ---Diagnostic Radiology--- Exam Date/Time 11/04/2019 14:47:22 EDT Exam CR Knee 3 Views Right Ordering Physician DAVID JIMÉNEZ Accession Number [id number] CPT4 Codes 46073 () Reason For Exam right knee pain [...] RISA Transcribed Date and Time: 11/04/2019 2:14 [place] Basic Metabolic Panelon 09-30 Anion gap [Moles/Vol] 10 mmol/L [place] Calcium [Mass/Vol] 9.0 mg/dL 8.4 - 10. 4 mg/dL [place] Chloride [Moles/Vol] 93 mmol/L Low 98 - 10 7 mmol/L [place] CO2 [Moles/Vol] 36 mmol/L High 22 - 30 mmol/L [place] Creatinine [Mass/Vol] 0.63 mg/dL 0.52 - 1.25 mg/dL [place] EGFR IF NonAfrican [place] >90.0 >60 mL/min [place] Comment on above: KDIGO guidelines pro [...] MDRD (S/P/Bld) [Vol rate/Area] mL/min/{1.73_m2} >60 mL/min [place] Glucose [Mass/Vol] 115 mg/dL High 70 - 100 mg/dL [place] Potassium [Moles/Vol] 3.7 mmol/L 3.5 - 5.1 mmol/L [place] Sodium [Moles/Vol] 139 mmol/L 135 - 145 mmol/L [place] Urea nitrogen [Mass/Vol] 30 mg/dL High 7 - 20 mg/d L [place] CBC Auto Differentialon 05-2 Absolute Baso # 0.1 10*3/uL 0 - 0.2 10*3/uL [place] Absolute Neut # 5.8 10*3/uL 1.8 - 7 10*3/uL [place] Basophils/100 WBC (Bld) 0.9 % 0 - 2 % [place] Eosinophils (Bld) [#/Vol] 0.3 10*3/uL 0 - 0.5 10*3/uL [place] Eosinophils/100 WBC (Bld) 3.4 % 1 - 6 % [place] Erythrocyte distribution width (RBC) [Ratio] 15.5 % High 11.5 - 14.5 % [place] Granulocytes/100 WBC (Bld) 67.2 % 40 - 80 % [place] Hematocrit (Bld) [Volume fraction] 38.5 % 35 - 47 % [place] Hemoglobin (Bld) [Mass/Vol] 12.3 g/dL 11.7 - 16 g/dL [place] Interpretation and review of laboratory results Abnormal [place] Lymphocytes (Bld) [#/Vol] 1.5 10*3/uL 1 - 4.3 10*3/uL [place] Lymphocytes/100 WBC (Bld) 17.8 % Low 20 - 40 % [place] MCH (RBC) [Entitic mass] 30.7 pg 26 - 34 pg [place] MCHC (RBC) [Mass/Vol] 32.0 % 32 - 36 % [place] MCV (RBC) [Entitic vol] 96.0 fL 79 - 98 fL [place] Monocytes (Bld) [#/Vol] 0.9 10*3/uL High 0 - 0.8 10*3/uL [place] Monocytes/100 WBC (Bld) 10.7 % High 2 - 10 % [place] Platelet mean volume (Bld) [Entitic vol] 7.8 fL 7.4 - 10.4 fL [place] Platelets (Bld) [#/Vol] 333 10*3/uL 140 - 440 10*3/uL [place] RBC (Bld) [#/Vol] 4.01 10*6/uL 3.8 - 5.2 10*6/uL [place] WBC (Bld) [#/Vol] 8.7 10*3/uL 3.6 - 10.7 10*3/uL [place] Test Performed by [facility], [address], [place], [place] [address] [place] [address] Calcium, Ionizedon 0 Interpretation and review of laboratory results Abnormal [place] Ionized Ca 4.30 mg/dL 4.3 - 5.2 mg/dL [place] pH (Bld) 7.47 [pH] [place] Test [facility]formed [facility], [address], [place], [place] [address] [place] [address] Hepatic Function Panelon Albumin [Mass/Vol] 3.8 g/dL 3.5 - 5 g/dL [place] ALP [Catalytic activity/Vol] 107 U/L 38 - 126 U/L [place] ALT [Catalytic activity/Vol] 67 U/L High 0 - 34 U/L [place] Comment on above: The ALT test is perf ormed by an updated assay method. Please note that the reference intervals have been changed and are now sex specific. AST [Catalytic activity/Vol] 51 U/L High 15 - 46 U/L [place] Bilirubin Ql (U) 0.6 mg/dL 0.2 - 1.3 mg/dL [place] Bilirubin.direct [Mass/Vol] 0.0 mg/dL 0 - 0.3 mg/dL [place] Protein [Mass/Vol] 8.2 g/dL 6.3 - 8.2 g/dL [place] MAGNESIUMon 10-25-2019 Magnesium [Mass/Vol] 1.8 mg/dL 1.6 - 2 .3 mg/dL [place] Otheron 10-25-2019 Interpretation and review of laboratory results Abnormal [place] Test Performed by [facility], [address] [place], [place] [address] [place] [address] Phosphoruson 10-25-2019 Phosphate [Mass/Vol] 5.3 mg/dL High 2.5 - 4 .5 mg/dL [place] Basic Metabolic Panelon 09-30 Anion gap [Moles/Vol] 9 mmol/L [place] Calcium [Mass/Vol] 8.5 mg/dL 8.4 - 10. 4 mg/dL [place] Chloride [Moles/Vol] 95 mmol/L Low 98 - 10 7 mmol/L [place] CO2 [Moles/Vol] 36 mmol/L High 22 - 30 mmol/L [place] Creatinine [Mass/Vol] 0.48 mg/dL Low 0.52 - 1.25 mg/dL [place] EGFR IF NonAfrican [place] >90.0 >60 mL/min [place] Comment on above: KDIGO guidelines pro [...] MDRD (S/P/Bld) [Vol rate/Area] mL/min/{1.73_m2} >60 mL/min [place] Glucose [Mass/Vol] 113 mg/dL High 70 - 100 mg/dL [place] Potassium [Moles/Vol] 3.6 mmol/L 3.5 - 5.1 mmol/L [place] Sodium [Moles/Vol] 139 mmol/L 135 - 145 mmol/L [place] Urea nitrogen [Mass/Vol] 26 mg/dL High 7 - 20 mg/d L [place] CBC Auto Differentialon 09-30 Absolute Baso # 0.1 10*3/uL 0 - 0.2 10*3/uL [place] Absolute Neut # 6.0 10*3/uL 1.8 - 7 10*3/uL [place] Basophils/100 WBC (Bld) 1.3 % 0 - 2 % [place] Eosinophils (Bld) [#/Vol] 0.3 10*3/uL 0 - 0.5 10*3/uL [place] Eosinophils/100 WBC (Bld) 3.3 % 1 - 6 % [place] Erythrocyte distribution width (RBC) [Ratio] 15.0 % High 11.5 - 14.5 % [place] Granulocytes/100 WBC (Bld) 68.0 % 40 - 80 % [place] Hematocrit (Bld) [Volume fraction] 36.4 % 35 - 47 % [place] Hemoglobin (Bld) [Mass/Vol] 11.9 g/dL 11.7 - 16 g/dL [place] Interpretation and review of laboratory results Abnormal [place] Lymphocytes (Bld) [#/Vol] 1.6 10*3/uL 1 - 4.3 10*3/uL [place] Lymphocytes/100 WBC (Bld) 17.8 % Low 20 - 40 % [place] MCH (RBC) [Entitic mass] 31.4 pg 26 - 34 pg [place] MCHC (RBC) [Mass/Vol] 32.7 % 32 - 36 % [place] MCV (RBC) [Entitic vol] 96.0 fL 79 - 98 fL [place] Monocytes (Bld) [#/Vol] 0.8 10*3/uL 0 - 0.8 10*3/uL [place] Monocytes/100 WBC (Bld) 9.6 % 2 - 10 % [place] Platelet mean volume (Bld) [Entitic vol] 7.6 fL 7.4 - 10.4 fL [place] Platelets (Bld) [#/Vol] 322 10*3/uL 140 - 440 10*3/uL [place] RBC (Bld) [#/Vol] 3.79 10*6/uL Low 3.8 - 5.2 10*6/uL [place] WBC (Bld) [#/Vol] 8.8 10*3/uL 3.6 - 10.7 10*3/uL [place] Test Performed by [facility], [address], [place], [place] [address] [place] Calcium, Ionizedon 0 Interpretation and review of laboratory results Abnormal [place] Ionized Ca 4.30 mg/dL 4.3 - 5.2 mg/dL [place] pH (Bld) 7.47 [pH] [place] Test Performed by [facility], [address], [place], [place] [address] [place] Hepatic Function Panelon Albumin [Mass/Vol] 3.6 g/dL 3.5 - 5 g/dL [place] ALP [Catalytic activity/Vol] 102 U/L 38 - 126 U/L [place] ALT [Catalytic activity/Vol] 69 U/L High 0 - 34 U/L [place] Comment on above: The ALT test is perf ormed by an updated assay method. Please note that the reference intervals have been changed and are now sex specific. AST [Catalytic activity/Vol] 41 U/L 15 - 46 U/L [place] Bilirubin Ql (U) 0.6 mg/dL 0.2 - 1.3 mg/dL [place] Bilirubin.direct [Mass/Vol] 0.0 mg/dL 0 - 0.3 mg/dL [place] Protein [Mass/Vol] 7.7 g/dL 6.3 - 8.2 g/dL [place] MAGNESIUMon 10-24-2019 Magnesium [Mass/Vol] 2.0 mg/dL 1.6 - 2 .3 mg/dL [facility] JAIDA Otheron 10-24-2019 Interpretation and review of laboratory results Abnormal [facility] Test Performed by [facility], [address], [place], [place] [address] [facility] Phosphoruson 10-24-2019 Phosphate [Mass/Vol] 4.5 mg/dL 2.5 - 4 .5 mg/dL [facility] JAIDA XR CHEST PORTABLEon 10-24-19 20 [place], [facility] Incoming Radiology Results From [facility] - 10/24/2019 9:09 AM EDT Patient Name: CHARLIE NGUYEN ---Diagnostic Radiology--- Exam Date/Time 10/24/2019 08:53:24 EDT Exam CR Chest Portable Ordering Physician BENJAMIN SOSA JUDITH A. Accession Number [id number] CPT4 Codes 40853 () Reason For Exam respiratory failure Report [...] I Transcribed Date and Time: 10/24/2019 9:08 [facility] JAIDA Patient Name: CHARLIE NGUYEN ---Diagnostic Radiology--- Exam Date/Time 10/24/2019 08:53:24 EDT Exam CR Chest Portable Ordering Physician BENJAMIN SOSA JUDITH A. Accession Number [id number] CPT4 Codes 80726 () Reason For Exam respiratory failure Report [...] I Transcribed Date and Time: 10/24/2019 9:08 [place] Basic Metabolic Panelon 09-30 Anion gap [Moles/Vol] 12 mmol/L [place] Calcium [Mass/Vol] 8.5 mg/dL 8.4 - 10. 4 mg/dL [place] Chloride [Moles/Vol] 97 mmol/L Low 98 - 10 7 mmol/L [place] CO2 [Moles/Vol] 35 mmol/L High 22 - 30 mmol/L [place] Creatinine [Mass/Vol] 0.53 mg/dL 0.52 - 1.25 mg/dL [place] EGFR IF NonAfrican [place] >90.0 >60 mL/min [place] Comment on above: KDIGO guidelines pro [...] MDRD (S/P/Bld) [Vol rate/Area] mL/min/{1.73_m2} >60 mL/min [place] Glucose [Mass/Vol] 104 mg/dL High 70 - 100 mg/dL [place] Potassium [Moles/Vol] 3.5 mmol/L 3.5 - 5.1 mmol/L [place] Sodium [Moles/Vol] 144 mmol/L 135 - 145 mmol/L [place] Urea nitrogen [Mass/Vol] 25 mg/dL High 7 - 20 mg/d L [place] CBC Auto Differentialon 05-2 Absolute Baso # 0.1 10*3/uL 0 - 0.2 10*3/uL [place] Absolute Neut # 7.0 10*3/uL 1.8 - 7 10*3/uL [place] Basophils/100 WBC (Bld) 1.0 % 0 - 2 % [place] Eosinophils (Bld) [#/Vol] 0.3 10*3/uL 0 - 0.5 10*3/uL [place] Eosinophils/100 WBC (Bld) 3.2 % 1 - 6 % [place] Erythrocyte distribution width (RBC) [Ratio] 15.1 % High 11.5 - 14.5 % [place] Granulocytes/100 WBC (Bld) 71.8 % 40 - 80 % [place] Hematocrit (Bld) [Volume fraction] 35.4 % 35 - 47 % [place] Hemoglobin (Bld) [Mass/Vol] 11.6 g/dL Low 11.7 - 16 g/dL [place] Interpretation and review of laboratory results Abnormal [place] Lymphocytes (Bld) [#/Vol] 1.5 10*3/uL 1 - 4.3 10*3/uL [place] Lymphocytes/100 WBC (Bld) 15.7 % Low 20 - 40 % [place] MCH (RBC) [Entitic mass] 31.3 pg 26 - 34 pg [place] MCHC (RBC) [Mass/Vol] 32.8 % 32 - 36 % [place] MCV (RBC) [Entitic vol] 95.6 fL 79 - 98 fL [place] Monocytes (Bld) [#/Vol] 0.8 10*3/uL 0 - 0.8 10*3/uL [place] Monocytes/100 WBC (Bld) 8.3 % 2 - 10 % [place] Platelet mean volume (Bld) [Entitic vol] 7.6 fL 7.4 - 10.4 fL [place] Platelets (Bld) [#/Vol] 343 10*3/uL 140 - 440 10*3/uL [place] RBC (Bld) [#/Vol] 3.71 10*6/uL Low 3.8 - 5.2 10*6/uL [place] WBC (Bld) [#/Vol] 9.8 10*3/uL 3.6 - 10.7 10*3/uL [place] Test Performed by [facility], [address] [place], [place] [address] [place] Calcium, Ionizedon 0 Ionized Ca 4.40 mg/dL 4.3 - 5.2 mg/dL [place] pH (Bld) 7.42 [pH] [place] Test Performed by [facility], [address] [place], [place] [address] [place] Hepatic Function Panelon Albumin [Mass/Vol] 3.4 g/dL Low 3.5 - 5 g/dL [place] ALP [Catalytic activity/Vol] 106 U/L 38 - 126 U/L [place] ALT [Catalytic activity/Vol] 84 U/L High 0 - 34 U/L [place] Comment on above: The ALT test is perf ormed by an updated assay method. Please note that the reference intervals have been changed and are now sex specific. AST [Catalytic activity/Vol] 44 U/L 15 - 46 U/L [place] Bilirubin Ql (U) 0.6 mg/dL 0.2 - 1.3 mg/dL [place] Bilirubin.direct [Mass/Vol] 0.0 mg/dL 0 - 0.3 mg/dL [place] Protein [Mass/Vol] 7.6 g/dL 6.3 - 8.2 g/dL [place] MAGNESIUMon 10-23-2019 Magnesium [Mass/Vol] 1.4 mg/dL Low 1.6 - 2 .3 mg/dL [place] Otheron 10-23-2019 Interpretation and review of laboratory results Abnormal [place] Test Performed by [facility], [address] [place], [place] [address] [place] POCT Arterialon 10-23-2019 Base Excess, Arterial 8.0 mmol/L High -3 - 3 mmol/L [place] HCO3, Arterial 32.9 mmol/L High 21 - 25 mmol/L [place] Interpretation and review of laboratory results Abnormal [place] Oxygen saturation in Blood 96.8 % 95 - 100 % [place] pCO2, Arterial 45.2 mm[Hg] High 35 - 45 mm[Hg] [place] pH, Arterial 7.470 [place] pO2, Arterial 83.8 mm[Hg] 80 - 100 mm[Hg] [place] Sodium [Moles/Vol] 40 mmol/L [place] Comment on above: Performed by CLIA ID : [id number] [place], [place] TCO2, Arterial 34.3 mmol/L High 23 - 27 mmol/L [place] Test Performed by [facility], [address] [place], [place] [address] [place] Base Excess, Arterial cnc Critically abnormal -3 - 3 mmol/L [place] HCO3, Arterial cnc Critically abnormal 21 - 25 mmol/L [place] Interpretation and review of laboratory results Abnormal [place] Oxygen saturation in Blood cnc Critically abnormal 95 - 100 % [place] pCO2, Arterial 44.8 mm[Hg] 35 - 45 mm[Hg] [place] pH, Arterial Failed iQC Critically abnormal [place] pO2, Arterial 80.1 mm[Hg] 80 - 100 mm[Hg] [place] Sodium [Moles/Vol] 40 mmol/L [place] Comment on above: Performed by CLIA ID : [id number] [place], [place] TCO2, Arterial cnc Critically abnormal 23 - 27 mmol/L [place] Test Performed by [facility], [address] [place] [address] [address] [place], [place], [place] [address] [place] Phosphoruson 10-23-2019 Phosphate [Mass/Vol] 4.3 mg/dL 2.5 - 4 .5 mg/dL [place] XR CHEST PORTABLEon 10-23-19 20 Patient Name: CHARLIE NGUYEN ---Diagnostic Radiology--- Exam Date/Time 10/23/2019 06:36:40 EDT Exam CR Chest Portable Ordering Physician BENJAMIN SOSA JUDITH A. Accession Number [id number] CPT4 Codes 70764 () Reason For Exam respiratory failure Report [...] I Transcribed Date and Time: 10/23/2019 7:43 [place], [facility] Incoming Radiology Results From [facility] - 10/23/2019 7:44 AM EDT Patient Name: CHARLIE NGUYEN ---Diagnostic Radiology--- Exam Date/Time 10/23/2019 06:36:40 EDT Exam CR Chest Portable Ordering Physician BENJAMIN SOSA JUDITH A. Accession Number [id number] CPT4 Codes 56337 () Reason For Exam respiratory failure Report [...] I Transcribed Date and Time: 10/23/2019 7:43 [place] Basic Metabolic Panelon 09-30 Anion gap [Moles/Vol] 8 mmol/L [place] Calcium [Mass/Vol] 8.2 mg/dL Low 8.4 - 10. 4 mg/dL [place] Chloride [Moles/Vol] 104 mmol/L 98 - 10 7 mmol/L [place] CO2 [Moles/Vol] 30 mmol/L 22 - 30 mmol/L [place] Creatinine [Mass/Vol] 0.39 mg/dL Low 0.52 - 1.25 mg/dL [place] EGFR IF NonAfrican [place] >90.0 >60 mL/min [place] Comment on above: KDIGO guidelines pro [...] MDRD (S/P/Bld) [Vol rate/Area] mL/min/{1.73_m2} >60 mL/min [place] Glucose [Mass/Vol] 96 mg/dL 70 - 100 mg/dL [place] Potassium [Moles/Vol] 3.2 mmol/L Low 3.5 - 5.1 mmol/L [place] Sodium [Moles/Vol] 142 mmol/L 135 - 145 mmol/L [place] Urea nitrogen [Mass/Vol] 15 mg/dL 7 - 20 mg/d L [place] CBC Auto Differentialon 05-2 Absolute Baso # 0.1 10*3/uL 0 - 0.2 10*3/uL [place] Absolute Neut # 6.9 10*3/uL 1.8 - 7 10*3/uL [place] Basophils/100 WBC (Bld) 0.7 % 0 - 2 % [place] Eosinophils (Bld) [#/Vol] 0.3 10*3/uL 0 - 0.5 10*3/uL [place] Eosinophils/100 WBC (Bld) 3.7 % 1 - 6 % [place] Erythrocyte distribution width (RBC) [Ratio] 15.2 % High 11.5 - 14.5 % [place] Granulocytes/100 WBC (Bld) 74.2 % 40 - 80 % [place] Hematocrit (Bld) [Volume fraction] 33.4 % Low 35 - 47 % [place] Hemoglobin (Bld) [Mass/Vol] 10.9 g/dL Low 11.7 - 16 g/dL [place] Interpretation and review of laboratory results Abnormal [place] Lymphocytes (Bld) [#/Vol] 1.4 10*3/uL 1 - 4.3 10*3/uL [place] Lymphocytes/100 WBC (Bld) 14.9 % Low 20 - 40 % [place] MCH (RBC) [Entitic mass] 31.7 pg 26 - 34 pg [place] MCHC (RBC) [Mass/Vol] 32.7 % 32 - 36 % [place] MCV (RBC) [Entitic vol] 96.8 fL 79 - 98 fL [place] Monocytes (Bld) [#/Vol] 0.6 10*3/uL 0 - 0.8 10*3/uL [place] Monocytes/100 WBC (Bld) 6.5 % 2 - 10 % [place] Platelet mean volume (Bld) [Entitic vol] 7.5 fL 7.4 - 10.4 fL [place] Platelets (Bld) [#/Vol] 341 10*3/uL 140 - 440 10*3/uL [place] RBC (Bld) [#/Vol] 3.44 10*6/uL Low 3.8 - 5.2 10*6/uL [place] WBC (Bld) [#/Vol] 9.2 10*3/uL 3.6 - 10.7 10*3/uL [place] Test Performed by [facility], [address] [place], [place] [address] [place] [address] Calcium, Ionizedon 0 Ionized Ca 4.40 mg/dL 4.3 - 5.2 mg/dL [place] pH (Bld) 7.36 [pH] [place] Test Performed by [facility], [address] [place], [place] [address] [place] Hepatic Function Panelon Albumin [Mass/Vol] 3.1 g/dL Low 3.5 - 5 g/dL [place] ALP [Catalytic activity/Vol] 97 U/L 38 - 126 U/L [place] ALT [Catalytic activity/Vol] 100 U/L High 0 - 34 U/L [place] Comment on above: The ALT test is perf ormed by an updated assay method. Please note that the reference intervals have been changed and are now sex specific. AST [Catalytic activity/Vol] 56 U/L High 15 - 46 U/L [place] Bilirubin Ql (U) 0.5 mg/dL 0.2 - 1.3 mg/dL [place] Bilirubin.direct [Mass/Vol] 0.0 mg/dL 0 - 0.3 mg/dL [place] Protein [Mass/Vol] 7.0 g/dL 6.3 - 8.2 g/dL [place] MAGNESIUMon 10-22-2019 Magnesium [Mass/Vol] 1.6 mg/dL 1.6 - 2 .3 mg/dL [place] Otheron 10-22-2019 Interpretation and review of laboratory results Abnormal [place] Test Performed by [facility], [address] [place], [place] [address] [place] [address] POCT Arterialon 10-22-2019 Base Excess, Arterial 4.2 mmol/L High -3 - 3 mmol/L [place] HCO3, Arterial 29.9 mmol/L High 21 - 25 mmol/L [place] Interpretation and review of laboratory results Abnormal [place] Oxygen saturation in Blood 96.4 % 95 - 100 % [place] pCO2, Arterial 48.1 mm[Hg] High 35 - 45 mm[Hg] [place] pH, Arterial 7.401 [place] pO2, Arterial 86.4 mm[Hg] 80 - 100 mm[Hg] [place] TCO2, Arterial 31.3 mmol/L High 23 - 27 mmol/L [place] Comment on above: Performed by [facility] ID : [id number] [place], [place] Test Performed by [facility], [address] [place], [place] [address] [place] Phosphoruson 10-22-2019 Phosphate [Mass/Vol] 3.6 mg/dL 2.5 - 4 .5 mg/dL [place] XR CHEST PORTABLEon 10-22-19 20 [place], [facility] Incoming Radiology Results From [facility] - 10/22/2019 6:46 AM EDT Patient Name: CHARLIE NGUYEN ---Diagnostic Radiology--- Exam Date/Time 10/22/2019 06:14:22 EDT Exam CR Chest Portable Ordering Physician BENJAMIN SOSA JUDITH A. Accession Number [id number] CPT4 Codes 49966 () Reason For Exam respiratory failure Report [...] ALFRED Transcribed Date and Time: 10/22/2019 6:46 [place] Patient Name: CHARLIE NGUYEN ---Diagnostic Radiology--- Exam Date/Time 10/22/2019 06:14:22 EDT Exam CR Chest Portable Ordering Physician BENJAMIN SOSA JUDITH A. Accession Number [id number] CPT4 Codes 25802 () Reason For Exam respiratory failure Report [...] ALFRED Transcribed Date and Time: 10/22/2019 6:46 [place] Basic Metabolic Panelon 09-30 Anion gap [Moles/Vol] 11 mmol/L [place] Calcium [Mass/Vol] 8.3 mg/dL Low 8.4 - 10. 4 mg/dL [place] Chloride [Moles/Vol] 107 mmol/L 98 - 10 7 mmol/L [place] CO2 [Moles/Vol] 25 mmol/L 22 - 30 mmol/L [place] Creatinine [Mass/Vol] 0.36 mg/dL Low 0.52 - 1.25 mg/dL [place] EGFR IF NonAfrican [place] >90.0 >60 mL/min [place] Comment on above: KDIGO guidelines pro [...] MDRD (S/P/Bld) [Vol rate/Area] mL/min/{1.73_m2} >60 mL/min [place] Glucose [Mass/Vol] 98 mg/dL 70 - 100 mg/dL [place] Potassium [Moles/Vol] 2.8 mmol/L Low 3.5 - 5.1 mmol/L [place] Sodium [Moles/Vol] 143 mmol/L 135 - 145 mmol/L [place] Urea nitrogen [Mass/Vol] 17 mg/dL 7 - 20 mg/d L [place] CBC Auto Differentialon 09-30 Absolute Baso # 0.1 10*3/uL 0 - 0.2 10*3/uL [place] Absolute Neut # 8.1 10*3/uL High 1.8 - 7 10*3/uL [place] Basophils/100 WBC (Bld) 0.8 % 0 - 2 % [place] Eosinophils (Bld) [#/Vol] 0.3 10*3/uL 0 - 0.5 10*3/uL [place] Eosinophils/100 WBC (Bld) 2.9 % 1 - 6 % [place] Erythrocyte distribution width (RBC) [Ratio] 15.2 % High 11.5 - 14.5 % [place] Granulocytes/100 WBC (Bld) 76.9 % 40 - 80 % [place] Hematocrit (Bld) [Volume fraction] 33.5 % Low 35 - 47 % [place] Hemoglobin (Bld) [Mass/Vol] 11.1 g/dL Low 11.7 - 16 g/dL [place] Interpretation and review of laboratory results Abnormal [place] Lymphocytes (Bld) [#/Vol] 1.3 10*3/uL 1 - 4.3 10*3/uL [place] Lymphocytes/100 WBC (Bld) 11.9 % Low 20 - 40 % [place] MCH (RBC) [Entitic mass] 32.0 pg 26 - 34 pg [place] MCHC (RBC) [Mass/Vol] 33.1 % 32 - 36 % [place] MCV (RBC) [Entitic vol] 96.5 fL 79 - 98 fL [place] Monocytes (Bld) [#/Vol] 0.8 10*3/uL 0 - 0.8 10*3/uL [place] Monocytes/100 WBC (Bld) 7.5 % 2 - 10 % [place] Platelet mean volume (Bld) [Entitic vol] 7.8 fL 7.4 - 10.4 fL [place] Platelets (Bld) [#/Vol] 366 10*3/uL 140 - 440 10*3/uL [place] RBC (Bld) [#/Vol] 3.47 10*6/uL Low 3.8 - 5.2 10*6/uL [place] WBC (Bld) [#/Vol] 10.6 10*3/uL 3.6 - 10.7 10*3/uL [place] Test [facility] by [facility], [address] [place], [place] [address] [place] Hepatic Function Panelon Albumin [Mass/Vol] 3.4 g/dL Low 3.5 - 5 g/dL [place] ALP [Catalytic activity/Vol] 107 U/L 38 - 126 U/L [place] ALT [Catalytic activity/Vol] 126 U/L High 0 - 34 U/L [place] Comment on above: The ALT test is perf ormed by an updated assay method. Please note that the reference intervals have been changed and are now sex specific. AST [Catalytic activity/Vol] 72 U/L High 15 - 46 U/L [place] Bilirubin Ql (U) 0.7 mg/dL 0.2 - 1.3 mg/dL [place] Bilirubin.direct [Mass/Vol] 0.0 mg/dL 0 - 0.3 mg/dL [place] Protein [Mass/Vol] 7.6 g/dL 6.3 - 8.2 g/dL [place] MRI BRAIN W WO CONTRASTon Patient Name: CHARLIE NGUYEN ---MRI--- Exam Date/Time 10/21/2019 11:17:35 EDT Exam MRI Brain w/ + w/o Contrast Ordering Physician BRIDGET TAMARA Accession Number [id number] CPT4 Codes 47545 () Reason For Exam new onset seizures [...] JEFFREY Transcribed Date and Time: 10/21/2019 2:08 [place] [facility], [facility] Results From [facility] - 10/21/2019 2:09 PM EDT Patient Name: CHARLIE NGUYEN ---MRI--- Exam Date/Time 10/21/2019 11:17:35 EDT Exam MRI Brain w/ + w/o Contrast Ordering Physician TAMARA GILL Accession Number [id number] CPT4 Codes 93181 () Reason For Exam new onset seizures [...] JEFFREY Transcribed Date and Time: 10/21/2019 2:08 [facility] [employer] Otheron 10-21-2019 Interpretation and review of laboratory results Abnormal [facility] Test Performed by [facility], [address] [place], [place] [id number] [place], [place] [address] POCT Arterialon 10-21-2019 Base Excess, Arterial 2.8 mmol/L -3 - 3 mmol/L [facility] HCO3, Arterial 27.4 mmol/L High 21 - 25 mmol/L [place] Interpretation and review of laboratory results Abnormal [place] Oxygen saturation in Blood 93.7 % Low 95 - 100 % [place] pCO2, Arterial 41.0 mm[Hg] 35 - 45 mm[Hg] [place] pH, Arterial 7.433 [place] pO2, Arterial 67.7 mm[Hg] Low 80 - 100 mm[Hg] [place] Sodium [Moles/Vol] 40 mmol/L [place] Comment on above: Performed by CLIA ID : [id number] [place], [place] TCO2, Arterial 28.7 mmol/L High 23 - 27 mmol/L [place] Test Performed by [facility], [address] [place] [id number] [place] [address] XA SPECIAL ANGIOGRAPHY PROCE [facility] 10-21-2019 [place], [facility] Incoming Radiology Results From [facility] 10/21/2019 3:26 PM EDT Patient Name: CHARLIE NGUYEN ---Special Procedures--- Exam Date/Time 10/21/2019 15:06:31 EDT Exam XA Special Angiography Procedure Ordering Physician DES ROMERO Accession Number [id number] Reason For Exam PICC limited access Report [...] KEVIN Transcribed Date and Time: 10/21/2019 3:26 [place] Patient Name: CHARLIE NGUYEN ---Special Procedures--- Exam Date/Time 10/21/2019 15:06:31 EDT Exam XA Special Angiography Procedure Ordering Physician DES ROMERO Accession Number [id number] Reason For Exam PICC limited access Report [...] KEVIN Transcribed Date and Time: 10/21/2019 3:26 [place] AMMONIAon 10-20-2019 Ammonia (P) [Mass/Vol] ug/dL 9 - 3 0 umol/L [place] Test Performed by [facility], [address] [place] [address] [place], [place] [address] [place] CBC Auto Differentialon 09-30 Absolute Baso # 0.1 10*3/uL 0 - 0.2 10*3/uL [place] Absolute Neut # 10.2 10*3/uL High 1.8 - 7 10*3/uL [place] Basophils/100 WBC (Bld) 0.6 % 0 - 2 % [place] Eosinophils (Bld) [#/Vol] 0.1 10*3/uL 0 - 0.5 10*3/uL [place] Eosinophils/100 WBC (Bld) 1.1 % 1 - 6 % [place] Erythrocyte distribution width (RBC) [Ratio] 15.2 % High 11.5 - 14.5 % [place] Granulocytes/100 WBC (Bld) 85.0 % High 40 - 80 % [place] Hematocrit (Bld) [Volume fraction] 35.9 % 35 - 47 % [place] Hemoglobin (Bld) [Mass/Vol] 11.6 g/dL Low 11.7 - 16 g/dL [place] Interpretation and review of laboratory results Abnormal [place] Lymphocytes (Bld) [#/Vol] 1.0 10*3/uL 1 - 4.3 10*3/uL [place] Lymphocytes/100 WBC (Bld) 7.9 % Low 20 - 40 % [place] MCH (RBC) [Entitic mass] 30.8 pg 26 - 34 pg [place] MCHC (RBC) [Mass/Vol] 32.2 % 32 - 36 % [place] MCV (RBC) [Entitic vol] 95.8 fL 79 - 98 fL [place] Monocytes (Bld) [#/Vol] 0.7 10*3/uL 0 - 0.8 10*3/uL [place] Monocytes/100 WBC (Bld) 5.4 % 2 - 10 % [place] Platelet mean volume (Bld) [Entitic vol] 7.7 fL 7.4 - 10.4 fL [place] Platelets (Bld) [#/Vol] 411 10*3/uL 140 - 440 10*3/uL [place] RBC (Bld) [#/Vol] 3.75 10*6/uL Low 3.8 - 5.2 10*6/uL [place] WBC (Bld) [#/Vol] 12.0 10*3/uL High 3.6 - 10.7 10*3/uL [place] Test Performed by [facility], [address] [place], [place], [place] [id number] [place] [address] COVID-19on 10-20-2019 SARS-CoV-2 Not Detected Expected Result: Not Detected _ Real-time, RT-PCR performed on the Ven[employer] System by the [facility]. Negative results do not preclude SARS-CoV-2 infection and should not be used as the sole basis for treatment or other patient management decisions. This assay was developed by [email or web address] and [employer] and distributed under an Emergency Use Authorization (EUA) granted by the FDA for the qualitative detection of SARS-CoV-2 nucleic acid. [place] Test Performed by [facility], [address] [place] [id number] Specimen Source Comment:Nasopharyngea l Swab [place] CTA Chest W WO Contraston Patient Name: CHARLIE NGUYEN ---CT--- Exam Date/Time 10/20/2019 16:55:55 EDT Exam CTA Chest w/ + w/o Contrast Ordering Physician DES ROMERO Accession Number [id number] CPT4 Codes 92291 (), Q9967 (CT ISOVUE 370MG/ML&[id number]& ML&1) Reason For Exam Recurrent hypoxia Report Reasons for examination: Recurrent hypoxia, drug overdose. CT scan of the chest were performed with bolus contrast and high resolution scans for CT pulmonary angiographic study, with images post-processed by myself on [employer] workstation, with 3D - volume rendered CT [...] WILLIAM Transcribed Date and Time: 10/20/2019 6:04 [place], [facility] Incoming Radiology Results From [facility] - 10/20/2019 6:04 PM EDT Patient Name: CHARLIE NGUYEN ---CT--- Exam Date/Time 10/20/2019 16:55:55 EDT Exam CTA Chest w/ + w/o Contrast Ordering Physician DES ROMERO Accession Number [id number] CPT4 Codes 09457 (), Q9967 (CT ISOVUE 370MG/ML&[id number]& ML&1) Reason For Exam Recurrent hypoxia Report Reasons for examination: Recurrent hypoxia, drug overdose. CT scan of the chest were performed with bolus contrast and high resolution scans for CT pulmonary angiographic study, with images post-processed by myself on [employer] workstation, with 3D - volume rendered CT [...] WILLIAM Transcribed Date and Time: 10/20/2019 6:04 [place] Comprehensive Metabolic Pane rafiq 10-20-2019 Albumin [Mass/Vol] 3.4 g/dL Low 3.5 - 5 g/dL [place] ALP [Catalytic activity/Vol] 122 U/L 38 - 126 U/L [place] ALT [Catalytic activity/Vol] 134 U/L High 0 - 34 U/L [place] Comment on above: The ALT test is perf ormed by an updated assay method. Please note that the reference intervals have been changed and are now sex specific. Anion gap [Moles/Vol] 11 mmol/L [place] AST [Catalytic activity/Vol] 79 U/L High 15 - 46 U/L [place] Bilirubin Ql (U) 0.5 mg/dL 0.2 - 1.3 mg/dL [place] Calcium [Mass/Vol] 8.4 mg/dL 8.4 - 10. 4 mg/dL [place] Chloride [Moles/Vol] 106 mmol/L 98 - 10 7 mmol/L [place] CO2 [Moles/Vol] 26 mmol/L 22 - 30 mmol/L [place] Creatinine [Mass/Vol] 0.45 mg/dL Low 0.52 - 1.25 mg/dL [place] EGFR IF NonAfrican [place] >90.0 >60 mL/min [place] Comment on above: KDIGO guidelines pro [...] MDRD (S/P/Bld) [Vol rate/Area] mL/min/{1.73_m2} >60 mL/min [place] Glucose [Mass/Vol] 134 mg/dL High 70 - 100 mg/dL [place] Interpretation and review of laboratory results Abnormal [place] Potassium [Moles/Vol] 3.0 mmol/L Low 3.5 - 5.1 mmol/L [place] Protein [Mass/Vol] 7.5 g/dL 6.3 - 8.2 g/dL [place] Sodium [Moles/Vol] 143 mmol/L 135 - 145 mmol/L [place] Urea nitrogen [Mass/Vol] 21 mg/dL High 7 - 20 mg/d L [place] Test Performed by [facility], [address] [place], [place], [place] [address] [place] EEG REPORTon 10-20-2019 Torin Salazar MD - [...] EEG/VIDEO RECORDING (2:24 P.M. - 2:48 P.M.) CAMPUS POLICE OFFICER: TIFF EEG CLINICAL INDICATION: Seizure-like activity. NEUROLOGICAL HISTORY/DIAGNOSIS: A 64-year-old woman with seizure-like activity, drug overdose, restlessness and confusion. MEDICAL HISTORY: Migraine headaches and metabolic encephalopathy. CURRENT PERTINENT MEDICATIONS: Haldol, Lopressor, and Protonix. MENTAL STATUS PRESENTATION: Awake, verbal. The patient is restless, refusing to allow for the EEG. Not allowing the molding process technician to properly work for the electrodes [...] cooperative, may be helpful if clinically indicated. Diskriter Job ID: [id number] DOD:10/20/2019 06:32 P SLM/aletha DOT:10/20/2019 07:52 P Job Number: [id number] Document Number: [id number] ###### cc: Rajendra Kim MD [facility] [address] [place] [id number] Des Romero MD [address] [place] [id number] [place] [address], [place] POCT Arterialon 10-20-2019 Base Excess, Arterial 1.5 mmol/L -3 - 3 mmol/L [facility], [place] HCO3, Arterial 27.3 mmol/L High 21 - 25 mmol/L [facility], [place] Interpretation and review of laboratory results Abnormal [facility], [place] Oxygen saturation in Blood 99.2 % 95 - 100 % [facility], [place] pCO2, Arterial 46.3 mm[Hg] High 35 - 45 mm[Hg] [facility], [place] pH, Arterial 7.377 [facility], [place] pO2, Arterial 149.2 mm[Hg] High 80 - 100 mm[Hg] [facility], [place] Sodium [Moles/Vol] 100 mmol/L [facility], [place] Comment on above: Performed by CLIA ID : [id number] [place], [place] TCO2, Arterial 28.7 mmol/L High 23 - 27 mmol/L [facility], [place] Test Performed by [id number] [place] [address] Base Excess, Arterial 0.3 mmol/L -3 - 3 mmol/L [place] HCO3, Arterial 25.4 mmol/L High 21 - 25 mmol/L [place] Interpretation and review of laboratory results Abnormal [place] Oxygen saturation in Blood 98.1 % 95 - 100 % [place] pCO2, Arterial 42.0 mm[Hg] 35 - 45 mm[Hg] [place] pH, Arterial 7.390 [place] pO2, Arterial 107.0 mm[Hg] High 80 - 100 mm[Hg] [place] Sodium [Moles/Vol] 15 mmol/L [place] Comment on above: Performed by CLIA ID : [id number] [place] TCO2, Arterial 26.7 mmol/L 23 - 27 mmol/L [place] Test Performed by [facility], [address] POCT Glucoseon 10-20-2019 Glucose [Mass/Vol] 130 mg/dL High 70 - 100 mg/dL [place] Comment on above: Test performed by gl ucose meter. Results may be 10%-15% lower than serum/plasma values. (CLIA ID [id number]) Interpretation and review of laboratory results Abnormal [place] Test Performed by [facility], [address] Procalcitoninon 10-20-2019 Procalcitonin <0.10 <0.10 ng/mL [place] Sodium [Moles/Vol] See Below [place] Comment on above: PCT <0.50 = Low risk of severe sepsis and/or septic shock. PCT >2.00 = High risk of severe sepsis and/or septic shock. Test Performed by [facility], [address] [place] [address] [place] Troponinon 10-20-2019 Troponin I.cardiac [Mass/Vol] ng/mL 0 - 0.034 ng/mL [place] Comment on above: . Test Performed by [facility], [address], [place], [place] [address] [place] XR CHEST PORTABLEon 10-20-19 Rodolfo, [facility] Incoming Radiology Results From [facility] - 10/20/2019 2:48 PM EDT Patient Name: CHARLIE NGUYEN ---Diagnostic Radiology--- Exam Date/Time 10/20/2019 12:59:00 EDT Exam CR Chest Portable Ordering Physician DES ROMERO Accession Number [id number] CPT4 Codes 98579 () Reason For Exam SOB Report PORTABLE [...] DIANE Transcribed Date and Time: 10/20/2019 2:47 [place] Patient Name: CHARLIE NGUYEN ---Diagnostic Radiology--- Exam Date/Time 10/20/2019 12:59:00 EDT Exam CR Chest Portable Ordering Physician DES ROMERO Accession Number [id number] CPT4 Codes 81822 () Reason For Exam SOB Report PORTABLE [...] DIANE Transcribed Date and Time: 10/20/2019 2:47 [place] Basic Metabolic Panelon 09-30 Anion gap [Moles/Vol] 10 mmol/L [place] Calcium [Mass/Vol] 8.0 mg/dL Low 8.4 - 10. 4 mg/dL [place] Chloride [Moles/Vol] 108 mmol/L High 98 - 10 7 mmol/L [place] CO2 [Moles/Vol] 24 mmol/L 22 - 30 mmol/L [place] Creatinine [Mass/Vol] 0.37 mg/dL Low 0.52 - 1.25 mg/dL [place] EGFR IF NonAfrican [place] >90.0 >60 mL/min [place] Comment on above: KDIGO guidelines pro [...] MDRD (S/P/Bld) [Vol rate/Area] mL/min/{1.73_m2} >60 mL/min [place] Glucose [Mass/Vol] 90 mg/dL 70 - 100 mg/dL [place] Potassium [Moles/Vol] 3.2 mmol/L Low 3.5 - 5.1 mmol/L [place] Sodium [Moles/Vol] 142 mmol/L 135 - 145 mmol/L [place] Urea nitrogen [Mass/Vol] 21 mg/dL High 7 - 20 mg/d L [place] CBC Auto Differentialon 05-2 0-2020 Absolute Baso # 0.1 10*3/uL 0 - 0.2 10*3/uL [place] Absolute Neut # 8.2 10*3/uL High 1.8 - 7 10*3/uL [place] Basophils/100 WBC (Bld) 1.2 % 0 - 2 % [place] Eosinophils (Bld) [#/Vol] 0.3 10*3/uL 0 - 0.5 10*3/uL [place] Eosinophils/100 WBC (Bld) 2.7 % 1 - 6 % [place] Erythrocyte distribution width (RBC) [Ratio] 15.5 % High 11.5 - 14.5 % [place] Granulocytes/100 WBC (Bld) 75.9 % 40 - 80 % [place] Hematocrit (Bld) [Volume fraction] 35.7 % 35 - 47 % [place] Hemoglobin (Bld) [Mass/Vol] 11.6 g/dL Low 11.7 - 16 g/dL [place] Interpretation and review of laboratory results Abnormal [place] Lymphocytes (Bld) [#/Vol] 1.4 10*3/uL 1 - 4.3 10*3/uL [place] Lymphocytes/100 WBC (Bld) 12.7 % Low 20 - 40 % [place] MCH (RBC) [Entitic mass] 32.0 pg 26 - 34 pg [place] MCHC (RBC) [Mass/Vol] 32.4 % 32 - 36 % [place] MCV (RBC) [Entitic vol] 98.6 fL High 79 - 98 fL [place] Monocytes (Bld) [#/Vol] 0.8 10*3/uL 0 - 0.8 10*3/uL [place] Monocytes/100 WBC (Bld) 7.5 % 2 - 10 % [place] Platelet mean volume (Bld) [Entitic vol] 7.4 fL 7.4 - 10.4 fL [place] Platelets (Bld) [#/Vol] 378 10*3/uL 140 - 440 10*3/uL [place] RBC (Bld) [#/Vol] 3.61 10*6/uL Low 3.8 - 5.2 10*6/uL [place] WBC (Bld) [#/Vol] 10.8 10*3/uL High 3.6 - 10.7 10*3/uL [place] Test Performed by [facility], [address], [place], [place] [address] [place] Hepatic Function Panelon Albumin [Mass/Vol] 3.4 g/dL Low 3.5 - 5 g/dL [place] ALP [Catalytic activity/Vol] 106 U/L 38 - 126 U/L [place] ALT [Catalytic activity/Vol] 156 U/L High 0 - 34 U/L [place] Comment on above: The ALT test is perf ormed by an updated assay method. Please note that the reference intervals have been changed and are now sex specific. AST [Catalytic activity/Vol] 103 U/L High 15 - 46 U/L [place] Bilirubin Ql (U) 0.7 mg/dL 0.2 - 1.3 mg/dL [place] Bilirubin.direct [Mass/Vol] 0.0 mg/dL 0 - 0.3 mg/dL [place] Protein [Mass/Vol] 7.2 g/dL 6.3 - 8.2 g/dL [place] Otheron 10-19-2019 Interpretation and review of laboratory results Abnormal [place] Test Performed by [facility], [address], [place], [place] [address] [place] POCT Glucoseon 10-19-2019 Glucose [Mass/Vol] 88 mg/dL 70 - 100 mg/dL [place] Comment on above: Test performed by ucose meter. Results may be 10%-15% lower than serum/plasma values. (CLIA ID [id number]) Test Performed by [facility], [address], [place], [place] [address] [place] Glucose [Mass/Vol] 93 mg/dL 70 - 100 mg/dL [place] Comment on above: Test performed by ucose meter. Results may be 10%-15% lower than serum/plasma values. (CLIA ID [id number]) Test Performed by [facility], [address], [place], [place] [address] [place] Basic Metabolic Panelon 05- Anion gap [Moles/Vol] 12 mmol/L [place] Calcium [Mass/Vol] 8.4 mg/dL 8.4 - 10. 4 mg/dL [place] Chloride [Moles/Vol] 107 mmol/L 98 - 10 7 mmol/L [place] CO2 [Moles/Vol] 23 mmol/L 22 - 30 mmol/L [place] Creatinine [Mass/Vol] 0.48 mg/dL Low 0.52 - 1.25 mg/dL [place] EGFR IF NonAfrican [place] >90.0 >60 mL/min [place] Comment on above: KDIGO guidelines pro [...] MDRD (S/P/Bld) [Vol rate/Area] mL/min/{1.73_m2} >60 mL/min [place] Glucose [Mass/Vol] 120 mg/dL High 70 - 100 mg/dL [place] Potassium [Moles/Vol] 3.1 mmol/L Low 3.5 - 5.1 mmol/L [place] Sodium [Moles/Vol] 141 mmol/L 135 - 145 mmol/L [place] Urea nitrogen [Mass/Vol] 23 mg/dL High 7 - 20 mg/d L [place] CBC Auto Differentialon 09-29 Absolute Baso # 0.1 10*3/uL 0 - 0.2 10*3/uL [place] Absolute Neut # 9.6 10*3/uL High 1.8 - 7 10*3/uL [place] Basophils/100 WBC (Bld) 1.0 % 0 - 2 % [place] Eosinophils (Bld) [#/Vol] 0.2 10*3/uL 0 - 0.5 10*3/uL [place] Eosinophils/100 WBC (Bld) 1.8 % 1 - 6 % [place] Erythrocyte distribution width (RBC) [Ratio] 15.6 % High 11.5 - 14.5 % [place] Granulocytes/100 WBC (Bld) 74.8 % 40 - 80 % [place] Hematocrit (Bld) [Volume fraction] 35.7 % 35 - 47 % [place] Hemoglobin (Bld) [Mass/Vol] 11.8 g/dL 11.7 - 16 g/dL [place] Interpretation and review of laboratory results Abnormal [place] Lymphocytes (Bld) [#/Vol] 2.0 10*3/uL 1 - 4.3 10*3/uL [place] Lymphocytes/100 WBC (Bld) 15.2 % Low 20 - 40 % [place] MCH (RBC) [Entitic mass] 31.8 pg 26 - 34 pg [place] MCHC (RBC) [Mass/Vol] 33.0 % 32 - 36 % [place] MCV (RBC) [Entitic vol] 96.4 fL 79 - 98 fL [place] Monocytes (Bld) [#/Vol] 0.9 10*3/uL High 0 - 0.8 10*3/uL [place] Monocytes/100 WBC (Bld) 7.2 % 2 - 10 % [place] Platelet mean volume (Bld) [Entitic vol] 7.7 fL 7.4 - 10.4 fL [place] Platelets (Bld) [#/Vol] 459 10*3/uL High 140 - 440 10*3/uL [place] RBC (Bld) [#/Vol] 3.70 10*6/uL Low 3.8 - 5.2 10*6/uL [place] WBC (Bld) [#/Vol] 12.8 10*3/uL High 3.6 - 10.7 10*3/uL [place] Test Performed by [facility], [address] Hepatic Function Panelon Albumin [Mass/Vol] 3.6 g/dL 3.5 - 5 g/dL [place] ALP [Catalytic activity/Vol] 126 U/L 38 - 126 U/L [place] ALT [Catalytic activity/Vol] 165 U/L High 0 - 34 U/L [place] Comment on above: The ALT test is perf ormed by an updated assay method. Please note that the reference intervals have been changed and are now sex specific. AST [Catalytic activity/Vol] 110 U/L High 15 - 46 U/L [place] Bilirubin Ql (U) 0.7 mg/dL 0.2 - 1.3 mg/dL [place] Bilirubin.direct [Mass/Vol] 0.0 mg/dL 0 - 0.3 mg/dL [place] Protein [Mass/Vol] 7.6 g/dL 6.3 - 8.2 g/dL [place] Otheron 10-18-2019 Interpretation and review of laboratory results Abnormal [place] Test Performed by [facility], [address] POCT Arterialon 10-18-2019 Base Excess, Arterial -0.3 mmol/L -3 - 3 mmol/L [place] HCO3, Arterial 24.8 mmol/L 21 - 25 mmol/L [place] Oxygen saturation in Blood 97.0 % 95 - 100 % [place] pCO2, Arterial 41.1 mm[Hg] 35 - 45 mm[Hg] [place] pH, Arterial 7.388 [place] pO2, Arterial 92.2 mm[Hg] 80 - 100 mm[Hg] [place] Sodium [Moles/Vol] 80 mmol/L [place] Comment on above: Performed by CLIA ID : [id number] [place], [place] TCO2, Arterial 26 mmol/L 23 - 27 mmol/L [place] Test Performed by [facility], [address] POCT Glucoseon 10-18-2019 Glucose [Mass/Vol] 110 mg/dL High 70 - 100 mg/dL [place] Comment on above: Test performed by gl ucose meter. Results may be 10%-15% lower than serum/plasma values. (CLIA ID [id number]) Interpretation and review of laboratory results Abnormal [place] Test Performed by [facility], [address] XR CHEST PORTABLEon 10-18-19 20 [place], [facility] Incoming Radiology Results From [facility] - 10/18/2019 5:57 PM EDT Patient Name: CHARLIE NGUYEN ---Diagnostic Radiology--- Exam Date/Time 10/18/2019 17:41:40 EDT Exam CR Chest Portable Ordering Physician Gene CORONA MICHAEL THOMAS Accession Number [id number] CPT4 Codes 34736 () Reason For Exam sob Report Portable [...] structures are intact. Report Dictated on Workstation: [facility] --- Final --- Dictating Physician: MD CRANDALL RISA Signed Date and Time: 10/18/2019 5:56 pm Signed by: MD CRANDALL RISA Transcribed Date and Time: 10/18/2019 5:57 [place] Patient Name: CHARLIE NGUYEN ---Diagnostic Radiology--- Exam Date/Time 10/18/2019 17:41:40 EDT Exam CR Chest Portable Ordering Physician Gene CORONA MICHAEL THOMAS Accession Number [id number] CPT4 Codes 52175 () Reason For Exam sob Report Portable [...] structures are intact. Report Dictated on Workstation: [facility] --- Final --- Dictating Physician: MD CRANDALL RISA Signed Date and Time: 10/18/2019 5:56 pm Signed by: MD CRANDALL RISA Transcribed Date and Time: 10/18/2019 5:57 [place] Basic Metabolic Panelon 09-29 Anion gap [Moles/Vol] 11 mmol/L [place] Calcium [Mass/Vol] 8.1 mg/dL Low 8.4 - 10. 4 mg/dL [place] Chloride [Moles/Vol] 107 mmol/L 98 - 10 7 mmol/L [place] CO2 [Moles/Vol] 24 mmol/L 22 - 30 mmol/L [place] Creatinine [Mass/Vol] 0.53 mg/dL 0.52 - 1.25 mg/dL [place] EGFR IF NonAfrican [place] >90.0 >60 mL/min [place] Comment on above: KDIGO guidelines pro [...] MDRD (S/P/Bld) [Vol rate/Area] mL/min/{1.73_m2} >60 mL/min [place] Glucose [Mass/Vol] 105 mg/dL High 70 - 100 mg/dL [place] Potassium [Moles/Vol] 3.6 mmol/L 3.5 - 5.1 mmol/L [place] Sodium [Moles/Vol] 142 mmol/L 135 - 145 mmol/L [place] Urea nitrogen [Mass/Vol] 24 mg/dL High 7 - 20 mg/d L [place] CBC Auto Differentialon 05-1 Absolute Baso # 0.2 10*3/uL 0 - 0.2 10*3/uL [place] Absolute Neut # 13.1 10*3/uL High 1.8 - 7 10*3/uL [place] Basophils/100 WBC (Bld) 1.3 % 0 - 2 % [place] Eosinophils (Bld) [#/Vol] 0.4 10*3/uL 0 - 0.5 10*3/uL [place] Eosinophils/100 WBC (Bld) 2.4 % 1 - 6 % [place] Erythrocyte distribution width (RBC) [Ratio] 15.3 % High 11.5 - 14.5 % [place] Granulocytes/100 WBC (Bld) 78.5 % 40 - 80 % [place] Hematocrit (Bld) [Volume fraction] 36.2 % 35 - 47 % [place] Hemoglobin (Bld) [Mass/Vol] 12.0 g/dL 11.7 - 16 g/dL [place] Interpretation and review of laboratory results Abnormal [place] Lymphocytes (Bld) [#/Vol] 2.1 10*3/uL 1 - 4.3 10*3/uL [place] Lymphocytes/100 WBC (Bld) 12.8 % Low 20 - 40 % [place] MCH (RBC) [Entitic mass] 32.3 pg 26 - 34 pg [place] MCHC (RBC) [Mass/Vol] 33.1 % 32 - 36 % [place] MCV (RBC) [Entitic vol] 97.6 fL 79 - 98 fL [place] Monocytes (Bld) [#/Vol] 0.8 10*3/uL 0 - 0.8 10*3/uL [place] Monocytes/100 WBC (Bld) 5.0 % 2 - 10 % [place] Platelet mean volume (Bld) [Entitic vol] 7.3 fL Low 7.4 - 10.4 fL [place] Platelets (Bld) [#/Vol] 575 10*3/uL High 140 - 440 10*3/uL [place] RBC (Bld) [#/Vol] 3.71 10*6/uL Low 3.8 - 5.2 10*6/uL [place] WBC (Bld) [#/Vol] 16.7 10*3/uL High 3.6 - 10.7 10*3/uL [place] Test Performed by [facility], [address] [place], [place] Hepatic Function Panelon Albumin [Mass/Vol] 3.4 g/dL Low 3.5 - 5 g/dL [place] ALP [Catalytic activity/Vol] 131 U/L High 38 - 126 U/L [place] ALT [Catalytic activity/Vol] 219 U/L High 0 - 34 U/L [place] Comment on above: The ALT test is perf ormed by an updated assay method. Please note that the reference intervals have been changed and are now sex specific. AST [Catalytic activity/Vol] 86 U/L High 15 - 46 U/L [place] Bilirubin Ql (U) 0.8 mg/dL 0.2 - 1.3 mg/dL [place] Bilirubin.direct [Mass/Vol] 0.0 mg/dL 0 - 0.3 mg/dL [place] Protein [Mass/Vol] 7.3 g/dL 6.3 - 8.2 g/dL [place] Otheron 10-16-2019 Interpretation and review of laboratory results Abnormal [place] [facility], [address], [place], [place] [address] [place] Basic Metabolic Panelon 09-29 Anion gap [Moles/Vol] 10 mmol/L [place] Calcium [Mass/Vol] 8.2 mg/dL Low 8.4 - 10. 4 mg/dL [place] Chloride [Moles/Vol] 109 mmol/L High 98 - 10 7 mmol/L [place] CO2 [Moles/Vol] 24 mmol/L 22 - 30 mmol/L [place] Creatinine [Mass/Vol] 0.56 mg/dL 0.52 - 1.25 mg/dL [place] EGFR IF NonAfrican [place] >90.0 >60 mL/min [place] Comment on above: KDIGO guidelines pro [...] MDRD (S/P/Bld) [Vol rate/Area] mL/min/{1.73_m2} >60 mL/min [place] Glucose [Mass/Vol] 117 mg/dL High 70 - 100 mg/dL [place] Potassium [Moles/Vol] 3.6 mmol/L 3.5 - 5.1 mmol/L [place] Sodium [Moles/Vol] 143 mmol/L 135 - 145 mmol/L [place] Urea nitrogen [Mass/Vol] 24 mg/dL High 7 - 20 mg/d L [place] CBC Auto Differentialon 05-1 Absolute Baso # 0.2 10*3/uL 0 - 0.2 10*3/uL [place] Absolute Neut # 13.2 10*3/uL High 1.8 - 7 10*3/uL [place] Basophils/100 WBC (Bld) 1.1 % 0 - 2 % [place] Eosinophils (Bld) [#/Vol] 0.4 10*3/uL 0 - 0.5 10*3/uL [place] Eosinophils/100 WBC (Bld) 2.5 % 1 - 6 % [place] Erythrocyte distribution width (RBC) [Ratio] 15.6 % High 11.5 - 14.5 % [place] Granulocytes/100 WBC (Bld) 76.2 % 40 - 80 % [place] Hematocrit (Bld) [Volume fraction] 38.5 % 35 - 47 % [place] Hemoglobin (Bld) [Mass/Vol] 12.2 g/dL 11.7 - 16 g/dL [place] Interpretation and review of laboratory results Abnormal [place] Lymphocytes (Bld) [#/Vol] 2.5 10*3/uL 1 - 4.3 10*3/uL [place] Lymphocytes/100 WBC (Bld) 14.3 % Low 20 - 40 % [place] MCH (RBC) [Entitic mass] 31.5 pg 26 - 34 pg [place] MCHC (RBC) [Mass/Vol] 31.8 % Low 32 - 36 % [place] MCV (RBC) [Entitic vol] 99.0 fL High 79 - 98 fL [place] Monocytes (Bld) [#/Vol] 1.0 10*3/uL High 0 - 0.8 10*3/uL [place] Monocytes/100 WBC (Bld) 5.9 % 2 - 10 % [place] Platelet mean volume (Bld) [Entitic vol] 7.4 fL 7.4 - 10.4 fL [place] Platelets (Bld) [#/Vol] 654 10*3/uL High 140 - 440 10*3/uL [place] RBC (Bld) [#/Vol] 3.88 10*6/uL 3.8 - 5.2 10*6/uL [place] WBC (Bld) [#/Vol] 17.4 10*3/uL High 3.6 - 10.7 10*3/uL [place] Test Performed by [facility], [address] [place], [place], [place] [id number] [place] [address] Hepatic Function Panelon Albumin [Mass/Vol] 3.3 g/dL Low 3.5 - 5 g/dL [place] ALP [Catalytic activity/Vol] 139 U/L High 38 - 126 U/L [place] ALT [Catalytic activity/Vol] 289 U/L High 0 - 34 U/L [place] Comment on above: The ALT test is perf ormed by an updated assay method. Please note that the reference intervals have been changed and are now sex specific. AST [Catalytic activity/Vol] 146 U/L High 15 - 46 U/L [place] Bilirubin Ql (U) 0.7 mg/dL 0.2 - 1.3 mg/dL [place] Bilirubin.direct [Mass/Vol] 0.0 mg/dL 0 - 0.3 mg/dL [place] Protein [Mass/Vol] 6.8 g/dL 6.3 - 8.2 g/dL [place] Otheron 10-15-2019 Interpretation and review of laboratory results Abnormal [place] Test Performed by [facility], [address] [place] [address] Str[address] [place], [place], [place] [address] [place] CBC Auto Differentialon 09-29 Absolute Baso # 0.3 10*3/uL High 0 - 0.2 10*3/uL [place] Absolute Neut # 15.3 10*3/uL High 1.8 - 7 10*3/uL [place] Basophils/100 WBC (Bld) 1.4 % 0 - 2 % [place] Eosinophils (Bld) [#/Vol] 0.2 10*3/uL 0 - 0.5 10*3/uL [place] Eosinophils/100 WBC (Bld) 0.8 % Low 1 - 6 % [place] Erythrocyte distribution width (RBC) [Ratio] 15.5 % High 11.5 - 14.5 % [place] Granulocytes/100 WBC (Bld) 77.4 % 40 - 80 % [place] Hematocrit (Bld) [Volume fraction] 37.4 % 35 - 47 % [place] Hemoglobin (Bld) [Mass/Vol] 12.2 g/dL 11.7 - 16 g/dL [place] Interpretation and review of laboratory results Abnormal [place] Lymphocytes (Bld) [#/Vol] 2.6 10*3/uL 1 - 4.3 10*3/uL [place] Lymphocytes/100 WBC (Bld) 13.1 % Low 20 - 40 % [place] MCH (RBC) [Entitic mass] 31.6 pg 26 - 34 pg [place] MCHC (RBC) [Mass/Vol] 32.6 % 32 - 36 % [place] MCV (RBC) [Entitic vol] 96.9 fL 79 - 98 fL [place] Monocytes (Bld) [#/Vol] 1.4 10*3/uL High 0 - 0.8 10*3/uL [place] Monocytes/100 WBC (Bld) 7.3 % 2 - 10 % [place] Platelet mean volume (Bld) [Entitic vol] 7.6 fL 7.4 - 10.4 fL [place] Platelets (Bld) [#/Vol] 669 10*3/uL High 140 - 440 10*3/uL [place] RBC (Bld) [#/Vol] 3.86 10*6/uL 3.8 - 5.2 10*6/uL [place] WBC (Bld) [#/Vol] 19.8 10*3/uL High 3.6 - 10.7 10*3/uL [place] Test Performed by [facility], [address] [place], [place] [address] [place] Comprehensive Metabolic Pane rafiq 10-14-2019 Albumin [Mass/Vol] 3.2 g/dL Low 3.5 - 5 g/dL [place] ALP [Catalytic activity/Vol] 155 U/L High 38 - 126 U/L [place] ALT [Catalytic activity/Vol] 221 U/L High 0 - 34 U/L [place] Comment on above: The ALT test is perf ormed by an updated assay method. Please note that the reference intervals have been changed and are now sex specific. Anion gap [Moles/Vol] 9 mmol/L [place] AST [Catalytic activity/Vol] 141 U/L High 15 - 46 U/L [place] Bilirubin Ql (U) 0.8 mg/dL 0.2 - 1.3 mg/dL [place] Calcium [Mass/Vol] 8.2 mg/dL Low 8.4 - 10. 4 mg/dL [place] Chloride [Moles/Vol] 105 mmol/L 98 - 10 7 mmol/L [place] CO2 [Moles/Vol] 27 mmol/L 22 - 30 mmol/L [place] Creatinine [Mass/Vol] 0.68 mg/dL 0.52 - 1.25 mg/dL [place] EGFR IF NonAfrican [place] >90.0 >60 mL/min [place] Comment on above: KDIGO guidelines pro [...] MDRD (S/P/Bld) [Vol rate/Area] mL/min/{1.73_m2} >60 mL/min [place] Glucose [Mass/Vol] 106 mg/dL High 70 - 100 mg/dL [place] Interpretation and review of laboratory results Abnormal [place] Potassium [Moles/Vol] 3.1 mmol/L Low 3.5 - 5.1 mmol/L [place] Protein [Mass/Vol] 7.0 g/dL 6.3 - 8.2 g/dL [place] Sodium [Moles/Vol] 141 mmol/L 135 - 145 mmol/L [place] Urea nitrogen [Mass/Vol] 22 mg/dL High 7 - 20 mg/d L [place] HEPATITIS PANEL, ACUTEon HAV IgM IA Qn (S) NOT DETECTED Not-Detect ed NA [place] Hep B Core Ab, IgM NOT DETECTED Not-Detec senait NA [place] Hepatitis B Surface Ag NOT DETECTED Not-D etected NA [place] Hepatitis C Ab NOT DETECTED Not-Detected NA [place] Comment on above: Patients with DETECT ED Hepatitis C Ab results should have a new specimen submitted for supplemental testing with a Hepatitis C Quantitative RNA assay (viral load), if clinically indicated. Test Performed by [facility], [address] [place] [address] [place] Magnesium 10-14-2019 Magnesium [Mass/Vol] 1.7 mg/dL 1.6 - 2 .3 mg/dL [place] Other 10-14-2019 Test Performed by [facility], [address] [place], [place] [address] [place] Phosphoruson 10-14-2019 Phosphate [Mass/Vol] 3.5 mg/dL 2.5 - 4 .5 mg/dL [place] XR CHEST PORTABLEon 10-14-19 20 [facility] [place] [facility]14/[facility] 9:19 AM EDT Patient Name: CHARLIE NGUYEN ---Diagnostic Radiology--- Exam Date/Time 10/14/2019 08:30:00 EDT Exam CR Chest Portable Ordering Physician CLINTON DELEON Accession Number [id number] CPT4 Codes 91031 () Reason For Exam resp failure/ pneumonia/ [...] ANTHONY Transcribed Date and Time: 10/14/2019 9:19 [place] Patient Name: CHARLIE NGUYEN ---Diagnostic Radiology--- Exam Date/Time 10/14/2019 08:30:00 EDT Exam CR Chest Portable Ordering Physician CLINTON DELEON Accession Number [id number] CPT4 Codes 46766 () Reason For Exam resp failure/ pneumonia/ [...] ANTHONY Transcribed Date and Time: 10/14/2019 9:19 [place] CBC Auto Differentialon - Absolute Baso # 0.1 10*3/uL 0 - 0.2 10*3/uL [place] Absolute Neut # 13.4 10*3/uL High 1.8 - 7 10*3/uL [place] Basophils/100 WBC (Bld) 0.8 % 0 - 2 % [place] Eosinophils (Bld) [#/Vol] 0.0 10*3/uL 0 - 0.5 10*3/uL [place] Eosinophils/100 WBC (Bld) 0.0 % Low 1 - 6 % [place] Erythrocyte distribution width (RBC) [Ratio] 14.7 % High 11.5 - 14.5 % [place] Granulocytes/100 WBC (Bld) 84.2 % High 40 - 80 % [place] Hematocrit (Bld) [Volume fraction] 36.1 % 35 - 47 % [place] Hemoglobin (Bld) [Mass/Vol] 11.9 g/dL 11.7 - 16 g/dL [place] Lymphocytes (Bld) [#/Vol] 1.5 10*3/uL 1 - 4.3 10*3/uL [place] Lymphocytes/100 WBC (Bld) 9.7 % Low 20 - 40 % [place] MCH (RBC) [Entitic mass] 31.6 pg 26 - 34 pg [place] MCHC (RBC) [Mass/Vol] 33.1 % 32 - 36 % [place] MCV (RBC) [Entitic vol] 95.7 fL 79 - 98 fL [place], [place] Monocytes (Bld) [#/Vol] 0.8 10*3/uL 0 - 0.8 10*3/uL [place] Monocytes/100 WBC (Bld) 5.3 % 2 - 10 % [place] Platelet mean volume (Bld) [Entitic vol] 7.7 fL 7.4 - 10.4 fL [place] Platelets (Bld) [#/Vol] 668 10*3/uL High 140 - 440 10*3/uL [place] RBC (Bld) [#/Vol] 3.78 10*6/uL Low 3.8 - 5.2 10*6/uL [place] WBC (Bld) [#/Vol] 15.9 10*3/uL High 3.6 - 10.7 10*3/uL [place] Comprehensive Metabolic Pane rafiq 10-13-2019 Albumin [Mass/Vol] 3.4 g/dL Low 3.5 - 5 g/dL [place] ALP [Catalytic activity/Vol] 174 U/L High 38 - 126 U/L [place] ALT [Catalytic activity/Vol] 122 U/L High 0 - 34 U/L [place] Comment on above: The ALT test is perf ormed by an updated assay method. Please note that the reference intervals have been changed and are now sex specific. Anion gap [Moles/Vol] 9 mmol/L [place] AST [Catalytic activity/Vol] 118 U/L High 15 - 46 U/L [place] Bilirubin Ql (U) 0.9 mg/dL 0.2 - 1.3 mg/dL [place] Calcium [Mass/Vol] 8.2 mg/dL Low 8.4 - 10. 4 mg/dL [place] Chloride [Moles/Vol] 105 mmol/L 98 - 10 7 mmol/L [place] CO2 [Moles/Vol] 28 mmol/L 22 - 30 mmol/L [place] Creatinine [Mass/Vol] 0.52 mg/dL 0.52 - 1.25 mg/dL [place] EGFR IF NonAfrican [place] >90.0 >60 mL/min [place] Comment on above: KDIGO guidelines pro [...] MDRD (S/P/Bld) [Vol rate/Area] mL/min/{1.73_m2} >60 mL/min [place] Glucose [Mass/Vol] 110 mg/dL High 70 - 100 mg/dL [place] Potassium [Moles/Vol] 2.8 mmol/L Low 3.5 - 5.1 mmol/L [place] Protein [Mass/Vol] 7.2 g/dL 6.3 - 8.2 g/dL [place] Sodium [Moles/Vol] 142 mmol/L 135 - 145 mmol/L [place] Urea nitrogen [Mass/Vol] 15 mg/dL 7 - 20 mg/d L [place] Magnesiumon 10-13-2019 Magnesium [Mass/Vol] 1.8 mg/dL 1.6 - 2 .3 mg/dL [place] Otheron 10-13-2019 Interpretation and review of laboratory results Abnormal [place] Test Performed by [facility], [address] [place] [id number] [place] Phosphoruson 10-13-2019 Phosphate [Mass/Vol] 2.6 mg/dL 2.5 - 4 .5 mg/dL [place] Potassiumon 10-13-2019 Potassium [Moles/Vol] 3.4 mmol/L Low 3.5 - 5.1 mmol/L [place] XR CHEST PORTABLEon 10-13-19 20 Patient Name: CHARLIE NGUYEN ---Diagnostic Radiology--- Exam Date/Time 10/13/2019 05:36:07 EDT Exam CR Chest Portable Ordering Physician CLINTON DELEON Accession Number [id number] CPT4 Codes 43435 () Reason For Exam resp failure/ pneumonia/ [...] Small bilateral effusions. Report Dictated on Workstation: [id number] --- Final --- Dictating Physician: DO DICKEY ALFRED Signed Date and Time: 10/13/2019 5:57 am Signed by: DO DICKEY ALFRED Transcribed Date and Time: 10/13/2019 5:58 [place] Incoming Radiology Results From [facility] - 10/13/2019 5:58 AM EDT Patient Name: CHARLIE NGUYEN ---Diagnostic Radiology--- Exam Date/Time 10/13/2019 05:36:07 EDT Exam CR Chest Portable Ordering Physician CLINTON DELEON Accession Number [id number] CPT4 Codes 10220 () Reason For Exam resp failure/ pneumonia/ [...] Small bilateral effusions. Report Dictated on Workstation: [id number] --- Final --- Dictating Physician: DO DICKEY ALFRED Signed Date and Time: 10/13/2019 5:57 am Signed by: DO DICKEY ALFRED Transcribed Date and Time: 10/13/2019 5:58 [place] CBC Auto Differentialon 05- Absolute Baso # 0.0 10*3/uL 0 - 0.2 10*3/uL [place] Absolute Neut # 8.0 10*3/uL High 1.8 - 7 10*3/uL [place] Basophils/100 WBC (Bld) 0.3 % 0 - 2 % [place] Eosinophils (Bld) [#/Vol] 0.0 10*3/uL 0 - 0.5 10*3/uL [place] Eosinophils/100 WBC (Bld) 0.0 % Low 1 - 6 % [place] Erythrocyte distribution width (RBC) [Ratio] 15.2 % High 11.5 - 14.5 % [place] Granulocytes/100 WBC (Bld) 84.5 % High 40 - 80 % [place] Hematocrit (Bld) [Volume fraction] 32.7 % Low 35 - 47 % [place] Hemoglobin (Bld) [Mass/Vol] 10.7 g/dL Low 11.7 - 16 g/dL [place] Interpretation and review of laboratory results Abnormal [place] Lymphocytes (Bld) [#/Vol] 0.9 10*3/uL Low 1 - 4.3 10*3/uL [place] Lymphocytes/100 WBC (Bld) 9.3 % Low 20 - 40 % [place] MCH (RBC) [Entitic mass] 31.9 pg 26 - 34 pg [place] MCHC (RBC) [Mass/Vol] 32.9 % 32 - 36 % [place] MCV (RBC) [Entitic vol] 97.2 fL 79 - 98 fL [place] Monocytes (Bld) [#/Vol] 0.6 10*3/uL 0 - 0.8 10*3/uL [place] Monocytes/100 WBC (Bld) 5.9 % 2 - 10 % [place] Platelet mean volume (Bld) [Entitic vol] 8.0 fL 7.4 - 10.4 fL [place] Platelets (Bld) [#/Vol] 571 10*3/uL High 140 - 440 10*3/uL [place] RBC (Bld) [#/Vol] 3.36 10*6/uL Low 3.8 - 5.2 10*6/uL [place] WBC (Bld) [#/Vol] 9.4 10*3/uL 3.6 - 10.7 10*3/uL [place] Test Performed by [facility], [address], [place], [place] [address] [place] Comprehensive Metabolic Pane rafiq 10-12-2019 Albumin [Mass/Vol] 3.3 g/dL Low 3.5 - 5 g/dL [place] ALP [Catalytic activity/Vol] 157 U/L High 38 - 126 U/L [place] ALT [Catalytic activity/Vol] 61 U/L High 0 - 34 U/L [place] Comment on above: The ALT test is perf ormed by an updated assay method. Please note that the reference intervals have been changed and are now sex specific. Anion gap [Moles/Vol] 8 mmol/L [place] AST [Catalytic activity/Vol] 69 U/L High 15 - 46 U/L [place] Bilirubin Ql (U) 0.5 mg/dL 0.2 - 1.3 mg/dL [place] Calcium [Mass/Vol] 8.0 mg/dL Low 8.4 - 10. 4 mg/dL [place] Chloride [Moles/Vol] 103 mmol/L 98 - 10 7 mmol/L [place] CO2 [Moles/Vol] 29 mmol/L 22 - 30 mmol/L [place] Creatinine [Mass/Vol] 0.48 mg/dL Low 0.52 - 1.25 mg/dL [place] EGFR IF NonAfrican [place] >90.0 >60 mL/min [place] Comment on above: KDIGO guidelines pro [...] MDRD (S/P/Bld) [Vol rate/Area] mL/min/{1.73_m2} >60 mL/min [place] Glucose [Mass/Vol] 168 mg/dL High 70 - 100 mg/dL [place] Interpretation and review of laboratory results Abnormal [place] Potassium [Moles/Vol] 3.7 mmol/L 3.5 - 5.1 mmol/L [place] Protein [Mass/Vol] 6.9 g/dL 6.3 - 8.2 g/dL [place] Sodium [Moles/Vol] 140 mmol/L 135 - 145 mmol/L [place] Urea nitrogen [Mass/Vol] 21 mg/dL High 7 - 20 mg/d L [place] Culture, Respiratoryon 10-11 Interpretation and review of laboratory results Abnormal [place] Respiratory Culture Rare Negative for PBP2a (MSSA). [place] Respiratory Culture Staphylococcus aureus Abnormal [place] Respiratory Culture Few normal respiratory naomi. Abnormal [place] Test Performed by [facility], [address] [place] [id number] Specimen Source Comment:Endotracheal [place] Magnesiumon 10-12-2019 Magnesium [Mass/Vol] 1.8 mg/dL 1.6 - 2 .3 mg/dL [place] Otheron 10-12-2019 Test Performed by [facility], [address] [place] [address] [place] POCT Arterialon 10-12-2019 Base Excess, Arterial 3.1 mmol/L High -3 - 3 mmol/L [place] HCO3, Arterial 27.6 mmol/L High 21 - 25 mmol/L [place] Interpretation and review of laboratory results Abnormal [place] Oxygen saturation in Blood 94.8 % Low 95 - 100 % [place] pCO2, Arterial 40.8 mm[Hg] 35 - 45 mm[Hg] [place] pH, Arterial 7.438 [place] pO2, Arterial 72.1 mm[Hg] Low 80 - 100 mm[Hg] [place] Sodium [Moles/Vol] 45 mmol/L [place] Comment on above: Performed by [facility] ID : [id number] [place], [place] TCO2, Arterial 28.8 mmol/L High 23 - 27 mmol/L [place] Test Performed by [facility], [address] [place], [place] [address] [place] [address] Phosphoruson 10-12-2019 Phosphate [Mass/Vol] 3.5 mg/dL 2.5 - 4 .5 mg/dL [place] Vancomycin, Troughon 020 Interpretation and review of laboratory results Abnormal [place] Vancomycin Tr 11.5 ug/mL Low 15 - 20 ug/mL [place] Comment on above: . Test Performed by [facility], [address] [place], [place] [id number] [place] [address] XR CHEST PORTABLEon 10-12-19 20 [place], [facility] Incoming Radiology Results From [facility] - 10/12/2019 4:52 AM EDT Patient Name: CHARLIE NGUYEN ---Diagnostic Radiology--- Exam Date/Time 10/12/2019 04:18:26 EDT Exam CR Chest Portable Ordering Physician CLINTON DELEON Accession Number [id number] CPT4 Codes 00421 () Reason For Exam resp failure/ pneumonia/ [...] ALFRED Transcribed Date and Time: 10/12/2019 4:52 [place] Patient Name: CHARLIE NGUYEN ---Diagnostic Radiology--- Exam Date/Time 10/12/2019 04:18:26 EDT Exam CR Chest Portable Ordering Physician CLINTON DELEON Accession Number [id number] CPT4 Codes 78102 () Reason For Exam resp failure/ pneumonia/ [...] ALFRED Transcribed Date and Time: 10/12/2019 4:52 [place] CBC Auto Differentialon 05- Absolute Baso # 0.0 10*3/uL 0 - 0.2 10*3/uL [place] Absolute Neut # 6.2 10*3/uL 1.8 - 7 10*3/uL [place] Basophils/100 WBC (Bld) 0.4 % 0 - 2 % [place] Eosinophils (Bld) [#/Vol] 0.0 10*3/uL 0 - 0.5 10*3/uL [place] Eosinophils/100 WBC (Bld) 0.1 % Low 1 - 6 % [place] Erythrocyte distribution width (RBC) [Ratio] 15.2 % High 11.5 - 14.5 % [place] Granulocytes/100 WBC (Bld) 75.5 % 40 - 80 % [place] Hematocrit (Bld) [Volume fraction] 30.1 % Low 35 - 47 % [place] Hemoglobin (Bld) [Mass/Vol] 9.8 g/dL Low 11.7 - 16 g/dL [place] Interpretation and review of laboratory results Abnormal [place] Lymphocytes (Bld) [#/Vol] 1.2 10*3/uL 1 - 4.3 10*3/uL [place] Lymphocytes/100 WBC (Bld) 14.1 % Low 20 - 40 % [place] MCH (RBC) [Entitic mass] 31.8 pg 26 - 34 pg [place] MCHC (RBC) [Mass/Vol] 32.7 % 32 - 36 % [place] MCV (RBC) [Entitic vol] 97.1 fL 79 - 98 fL [place] Monocytes (Bld) [#/Vol] 0.8 10*3/uL 0 - 0.8 10*3/uL [place] Monocytes/100 WBC (Bld) 9.9 % 2 - 10 % [place] Platelet mean volume (Bld) [Entitic vol] 7.7 fL 7.4 - 10.4 fL [place] Platelets (Bld) [#/Vol] 494 10*3/uL High 140 - 440 10*3/uL [place] RBC (Bld) [#/Vol] 3.10 10*6/uL Low 3.8 - 5.2 10*6/uL [place] WBC (Bld) [#/Vol] 8.2 10*3/uL 3.6 - 10.7 10*3/uL [place] Test Performed by [facility], [address], [place], [place] [address] [place] Comprehensive Metabolic Pane rafiq 10-11-2019 Albumin [Mass/Vol] 3.1 g/dL Low 3.5 - 5 g/dL [place] ALP [Catalytic activity/Vol] 163 U/L High 38 - 126 U/L [place] ALT [Catalytic activity/Vol] 36 U/L High 0 - 34 U/L [place] Comment on above: The ALT test is perf ormed by an updated assay method. Please note that the reference intervals have been changed and are now sex specific. Anion gap [Moles/Vol] 9 mmol/L [place] AST [Catalytic activity/Vol] 46 U/L 15 - 46 U/L [place] Bilirubin Ql (U) 0.5 mg/dL 0.2 - 1.3 mg/dL [place] Calcium [Mass/Vol] 8.1 mg/dL Low 8.4 - 10. 4 mg/dL [place] Chloride [Moles/Vol] 103 mmol/L 98 - 10 7 mmol/L [place] CO2 [Moles/Vol] 29 mmol/L 22 - 30 mmol/L [place] Creatinine [Mass/Vol] 0.5 mg/dL Low 0.52 - 1.25 mg/dL [place] EGFR IF NonAfrican [place] >90.0 >60 mL/min [place] Comment on above: CORRECTED RESULT...P revious [...] MDRD (S/P/Bld) [Vol rate/Area] mL/min/{1.73_m2} >60 mL/min [place] Comment on above: CORRECTED RESULT...P revious above value was >60.0, verified on 10/11/19 at 05:39 by [facility] . Glucose [Mass/Vol] 144 mg/dL High 70 - 100 mg/dL [place] Interpretation and review of laboratory results Abnormal [place] Potassium [Moles/Vol] 3.7 mmol/L 3.5 - 5.1 mmol/L [place] Protein [Mass/Vol] 6.5 g/dL 6.3 - 8.2 g/dL [place] Sodium [Moles/Vol] 140 mmol/L 135 - 145 mmol/L [place] Urea nitrogen [Mass/Vol] 16 mg/dL 7 - 20 mg/d L [place] Magnesiumon 10-11-2019 Magnesium [Mass/Vol] 1.9 mg/dL 1.6 - 2 .3 mg/dL [place] Otheron 10-11-2019 Test Performed by [facility], [address], [place], [place] [address] [place] POCT Arterialon 10-11-2019 Base Excess, Arterial 3.4 mmol/L High -3 - 3 mmol/L [place] HCO3, Arterial 28.2 mmol/L High 21 - 25 mmol/L [place] Interpretation and review of laboratory results Abnormal [place] Oxygen saturation in Blood 95.8 % 95 - 100 % [place] pCO2, Arterial 43.1 mm[Hg] 35 - 45 mm[Hg] [place] pH, Arterial 7.424 [place] pO2, Arterial 79.2 mm[Hg] Low 80 - 100 mm[Hg] [place] Sodium [Moles/Vol] 50 mmol/L [place] Comment on above: Performed by [facility] ID : [id number] [place], [place] TCO2, Arterial 29.5 mmol/L High 23 - 27 mmol/L [place] Test Performed by [facility], [facility] [address] [place], [place], [place] [address] [place] Phosphoruson 10-11-2019 Phosphate [Mass/Vol] 3.0 mg/dL 2.5 - 4 .5 mg/dL [place] XR CHEST PORTABLEon 10-11-19 20 Patient Name: CHARLIE NGUYEN ---Diagnostic Radiology--- Exam Date/Time 10/11/2019 05:32:04 EDT Exam CR Chest Portable Ordering Physician CLINTON DELEON Accession Number [id number] CPT4 Codes 81755 () Reason For Exam resp failure/ pneumonia/ [...] ALFRED Transcribed Date and Time: 10/11/2019 5:32 [place], [place] Incoming Radiology Results From [facility] - 10/11/2019 5:32 AM EDT Patient Name: CHARLIE NGUYEN ---Diagnostic Radiology--- Exam Date/Time 10/11/2019 05:32:04 EDT Exam CR Chest Portable Ordering Physician CLINTON DELEON Accession Number [id number] CPT4 Codes 06623 () Reason For Exam resp failure/ pneumonia/ [...] ALFRED Transcribed Date and Time: 10/11/2019 5:32 [place] CBC Auto Differentialon 05- Absolute Baso # 0.0 10*3/uL 0 - 0.2 10*3/uL [place] Absolute Neut # 7.1 10*3/uL High 1.8 - 7 10*3/uL [place] Basophils/100 WBC (Bld) 0.3 % 0 - 2 % [place] Eosinophils (Bld) [#/Vol] 0.0 10*3/uL 0 - 0.5 10*3/uL [place] Eosinophils/100 WBC (Bld) 0.3 % Low 1 - 6 % [place] Erythrocyte distribution width (RBC) [Ratio] 15.4 % High 11.5 - 14.5 % [place] Granulocytes/100 WBC (Bld) 77.3 % 40 - 80 % [place] Hematocrit (Bld) [Volume fraction] 29.0 % Low 35 - 47 % [place] Hemoglobin (Bld) [Mass/Vol] 9.7 g/dL Low 11.7 - 16 g/dL [place] Interpretation and review of laboratory results Abnormal [place] Lymphocytes (Bld) [#/Vol] 1.0 10*3/uL 1 - 4.3 10*3/uL [place] Lymphocytes/100 WBC (Bld) 11.4 % Low 20 - 40 % [place] MCH (RBC) [Entitic mass] 32.1 pg 26 - 34 pg [place] MCHC (RBC) [Mass/Vol] 33.2 % 32 - 36 % [place] MCV (RBC) [Entitic vol] 96.6 fL 79 - 98 fL [place] Monocytes (Bld) [#/Vol] 1.0 10*3/uL High 0 - 0.8 10*3/uL [place] Monocytes/100 WBC (Bld) 10.7 % High 2 - 10 % [place] Platelet mean volume (Bld) [Entitic vol] 7.9 fL 7.4 - 10.4 fL [place] Platelets (Bld) [#/Vol] 380 10*3/uL 140 - 440 10*3/uL [place] RBC (Bld) [#/Vol] 3.01 10*6/uL Low 3.8 - 5.2 10*6/uL [place] WBC (Bld) [#/Vol] 9.2 10*3/uL 3.6 - 10.7 10*3/uL [place] Test Performed by [facility], [address], [place], [place] [address] [place] Comprehensive Metabolic Pane rafiq 10-10-2019 Albumin [Mass/Vol] 3.2 g/dL Low 3.5 - 5 g/dL [place], [place] ALP [Catalytic activity/Vol] 177 U/L High 38 - 126 U/L [place] ALT [Catalytic activity/Vol] 34 U/L 0 - 34 U/L [place] Comment on above: The ALT test is perf ormed by an updated assay method. Please note that the reference intervals have been changed and are now sex specific. Anion gap [Moles/Vol] 8 mmol/L [place] AST [Catalytic activity/Vol] 39 U/L 15 - 46 U/L [place] Bilirubin Ql (U) 0.8 mg/dL 0.2 - 1.3 mg/dL [place] Calcium [Mass/Vol] 7.8 mg/dL Low 8.4 - 10. 4 mg/dL [place] Chloride [Moles/Vol] 103 mmol/L 98 - 10 7 mmol/L [place] CO2 [Moles/Vol] 29 mmol/L 22 - 30 mmol/L [place] Creatinine [Mass/Vol] 0.56 mg/dL 0.52 - 1.25 mg/dL [place] EGFR IF NonAfrican [place] >60.0 >60 mL/min [place] Comment on above: Source- MDRD equatio n with creatinine calibration to IDMS(NKDEP) eGFR not recommended for drug dose adjustment GFR/1.73 sq M predicted among blacks MDRD (S/P/Bld) [Vol rate/Area] mL/min/{1.73_m2} >60 mL/min [place] Glucose [Mass/Vol] 126 mg/dL High 70 - 100 mg/dL [place] Interpretation and review of laboratory results Abnormal [place] Potassium [Moles/Vol] 3.7 mmol/L 3.5 - 5.1 mmol/L [place] Protein [Mass/Vol] 6.6 g/dL 6.3 - 8.2 g/dL [place] Sodium [Moles/Vol] 140 mmol/L 135 - 145 mmol/L [place] Urea nitrogen [Mass/Vol] 15 mg/dL 7 - 20 mg/d L [place] EKG 12 Leadon 10-10-2019 [place], [facility] Incoming Cardiology Results From [facility] - 10/10/2019 2:02 PM EDT [facility] Test Date: 2019-10-08 Pat Name: Charlie Nguyen [facility] Room: 232 Gender: F Clinical Laboratory Manager: JOVI : 1955 Requested By: NICA ISABELSCH Order Number: [id number] Reading MD: Edmar Atkinson Measurements Intervals Turner Rate: 109 P: 19 WY: 180 QRS: 10 QRSD: 100 T: 45 QT: 324 QTc: 437 Interpretive Statements SINUS TACHYCARDIA VENTRICULAR PREMATURE COMPLEX CONSIDER ANTEROSEPTAL INFARCT Electrical alternans, consider pericardial effusion Electronically Signed On 10-10-2019 14:01:44 EDT by [facility] Test Date: 2019-10-08 Pat Name: Charlie Nguyen Department: [facility] Room: 232 Gender: F Clinical Laboratory Manager: JOVI : 1955 Requested By: NICA [employer] Order Number: [id number] Reading MD: Edmar Atkinson Measurements Intervals Turner Rate: 109 P: 19 WY: 180 QRS: 10 QRSD: 100 T: 45 QT: 324 QTc: 437 Interpretive Statements SINUS TACHYCARDIA VENTRICULAR PREMATURE COMPLEX CONSIDER ANTEROSEPTAL INFARCT Electrical alternans, consider pericardial effusion Electronically Signed On 10-10-2019 14:01:44 EDT by [facility] Test Date: 2019-10-08 Pat Name: Charlie Patrick [facility]: [facility] Room: 232 Gender: F Clinical Laboratory Manager: OTONIEL : 1955 Requested By: NICA [employer] Order Number: [id number] Reading MD: Edmar Atkinson Measurements Intervals Turner Rate: 72 P: 39 WY: 184 QRS: 7 QRSD: 108 T: 19 QT: 412 QTc: 451 Interpretive Statements SINUS RHYTHM BORDERLINE INTRAVENTRICULAR CONDUCTION DELAY Compared to ECG 10/07/2019 21:02:04 No significant changes Electronically Signed On 10-10-2019 12:46:05 EDT by [place], [place], [facility] Incoming Cardiology Results From [facility] - 10/10/2019 12:47 PM EDT [facility] Test Date: 2019-10-08 Pat Name: Charlie Nguyen Department: [facility] Room: 232 Gender: F Clinical Laboratory Manager: : 1955 Requested By: NICA SAL Order Number: [id number] Reading MD: Edmar Atkinson Measurements Intervals Turner Rate: 72 P: 39 WY: 184 QRS: 7 QRSD: 108 T: 19 QT: 412 QTc: 451 Interpretive Statements SINUS RHYTHM BORDERLINE INTRAVENTRICULAR CONDUCTION DELAY Compared to ECG 10/07/2019 21:02:04 No significant changes Electronically Signed On 10-10-2019 12:46:05 EDT by [place] Gram Stainon 10-10-2019 INR Coag (Bld) [Relative time] Many polymorphonuclear cells/lpf. Few epithelial cells/lpf. Rare gram positive cocci in clusters. Rare gram positive bacilli. [place] Test Performed by [facility], [address] [place] [address] Specimen Source Comment:Endotracheal [place] Magnesiumon 10-10-2019 Magnesium [Mass/Vol] 1.9 mg/dL 1.6 - 2 .3 mg/dL [place] Otheron 10-10-2019 Test Performed by [facility], [address] [place], [place] [address] [place] POCT Arterialon 10-10-2019 Base Excess, Arterial 5.1 mmol/L High -3 - 3 mmol/L [place] HCO3, Arterial 29.6 mmol/L High 21 - 25 mmol/L [place] Interpretation and review of laboratory results Abnormal [place] Oxygen saturation in Blood 95.5 % 95 - 100 % [place] pCO2, Arterial 42.7 mm[Hg] 35 - 45 mm[Hg] [place] pH, Arterial 7.449 [place] pO2, Arterial 75.7 mm[Hg] Low 80 - 100 mm[Hg] [place] Sodium [Moles/Vol] 50 mmol/L [place] Comment on above: Performed by CLIA ID : [id number] [place], [place] TCO2, Arterial 30.9 mmol/L High 23 - 27 mmol/L [place] Test Performed by [facility], [address], [place], [place] [address] [place] Phosphoruson 10-10-2019 Phosphate [Mass/Vol] 3.8 mg/dL 2.5 - 4 .5 mg/dL [place] XR CHEST PORTABLEon 10-10-19 20 [place], [facility] Incoming Radiology Results From [facility] - 10/10/2019 3:36 PM EDT Patient Name: CHARLIE NGUYEN ---Diagnostic Radiology--- Exam Date/Time 10/10/2019 13:50:00 EDT Exam CR Chest Portable Ordering Physician CLINTON DELEON Accession Number [id number] CPT4 Codes 96616 () Reason For Exam resp failure/ pneumonia/ [...] ANTHONY Transcribed Date and Time: 10/10/2019 3:36 [place] Patient Name: CHARLIE NGUYEN ---Diagnostic Radiology--- Exam Date/Time 10/10/2019 13:50:00 EDT Exam CR Chest Portable Ordering Physician CLINTON DELEON Accession Number [id number] CPT4 Codes 02320 () Reason For Exam resp failure/ pneumonia/ [...] ANTHONY Transcribed Date and Time: 10/10/2019 3:36 [place] Basic Metabolic Panelon 05- Anion gap [Moles/Vol] 6 mmol/L [place] Calcium [Mass/Vol] 7.9 mg/dL Low 8.4 - 10. 4 mg/dL [place] Chloride [Moles/Vol] 105 mmol/L 98 - 10 7 mmol/L [place] CO2 [Moles/Vol] 26 mmol/L 22 - 30 mmol/L [place] Creatinine [Mass/Vol] 0.54 mg/dL 0.52 - 1.25 mg/dL [place] EGFR IF NonAfrican [place] >60.0 >60 mL/min [place] Comment on above: Source- MDRD equatio n with creatinine calibration to IDAL(NKDEP) eGFR not recommended for drug dose adjustment GFR/1.73 sq M predicted among blacks MDRD (S/P/Bld) [Vol rate/Area] mL/min/{1.73_m2} >60 mL/min [place] Glucose [Mass/Vol] 122 mg/dL High 70 - 100 mg/dL [place] Interpretation and review of laboratory results Abnormal [place] Potassium [Moles/Vol] 3.5 mmol/L 3.5 - 5.1 mmol/L [place] Sodium [Moles/Vol] 137 mmol/L 135 - 145 mmol/L [place] Urea nitrogen [Mass/Vol] 15 mg/dL 7 - 20 mg/d L [place] Test Performed by [facility], [address], [place], [place] [address] [place] Anion gap [Moles/Vol] 6 mmol/L [place] Calcium [Mass/Vol] 7.8 mg/dL Low 8.4 - 10. 4 mg/dL [place] Chloride [Moles/Vol] 104 mmol/L 98 - 10 7 mmol/L [place] CO2 [Moles/Vol] 27 mmol/L 22 - 30 mmol/L [place] Creatinine [Mass/Vol] 0.54 mg/dL 0.52 - 1.25 mg/dL [place] EGFR IF NonAfrican [place] >60.0 >60 mL/min [place] Comment on above: Source- MDRD equatio n with creatinine calibration to IDMS(NKDEP) eGFR not recommended for drug dose adjustment GFR/1.73 sq M predicted among blacks MDRD (S/P/Bld) [Vol rate/Area] mL/min/{1.73_m2} >60 mL/min [place] Glucose [Mass/Vol] 124 mg/dL High 70 - 100 mg/dL [place] Interpretation and review of laboratory results Abnormal [place] Potassium [Moles/Vol] 4.0 mmol/L 3.5 - 5.1 mmol/L [place] Sodium [Moles/Vol] 137 mmol/L 135 - 145 mmol/L [place] Urea nitrogen [Mass/Vol] 14 mg/dL 7 - 20 mg/d L [place] CBC Auto Differentialon 05-1 0-2019 Absolute Baso # 0.1 10*3/uL 0 - 0.2 10*3/uL [place] Absolute Neut # 8.9 10*3/uL High 1.8 - 7 10*3/uL [place] Basophils/100 WBC (Bld) 0.6 % 0 - 2 % [facility] [place] [place] Eosinophils (Bld) [#/Vol] 0.2 10*3/uL 0 - 0.5 10*3/uL [place] Eosinophils/100 WBC (Bld) 1.9 % 1 - 6 % [place] Erythrocyte distribution width (RBC) [Ratio] 14.8 % High 11.5 - 14.5 % [place] Granulocytes/100 WBC (Bld) 77.4 % 40 - 80 % [place] Hematocrit (Bld) [Volume fraction] 33.0 % Low 35 - 47 % [place] Hemoglobin (Bld) [Mass/Vol] 10.8 g/dL Low 11.7 - 16 g/dL [place] Interpretation and review of laboratory results Abnormal [place] Lymphocytes (Bld) [#/Vol] 1.1 10*3/uL 1 - 4.3 10*3/uL [place] Lymphocytes/100 WBC (Bld) 9.8 % Low 20 - 40 % [place] MCH (RBC) [Entitic mass] 31.5 pg 26 - 34 pg [place] MCHC (RBC) [Mass/Vol] 32.8 % 32 - 36 % [place] MCV (RBC) [Entitic vol] 96.0 fL 79 - 98 fL [place], [place] Monocytes (Bld) [#/Vol] 1.2 10*3/uL High 0 - 0.8 10*3/uL [place] Monocytes/100 WBC (Bld) 10.3 % High 2 - 10 % [place], [place] Platelet mean volume (Bld) [Entitic vol] 8.4 fL 7.4 - 10.4 fL [place] Platelets (Bld) [#/Vol] 346 10*3/uL 140 - 440 10*3/uL [place] RBC (Bld) [#/Vol] 3.44 10*6/uL Low 3.8 - 5.2 10*6/uL [place] WBC (Bld) [#/Vol] 11.5 10*3/uL High 3.6 - 10.7 10*3/uL [facility], [place] Test Performed by [facility], [address] [place] [address] [facility], [place] Culture, Blood 2on 0 Blood Culture, Routine No growth at 5 days. [facility], [place] Test Performed by [facility], [address] [place] [id number] Specimen Source Comment:Blood [facility], [place] Hemoglobin and Hematocrit, B loodon 10-09-2019 Hematocrit (Bld) [Volume fraction] 33.5 % Low 35 - 47 % [facility], [place] Hemoglobin (Bld) [Mass/Vol] 11.1 g/dL Low 11.7 - 16 g/dL [facility], [place] Interpretation and review of laboratory results Abnormal [facility], [place] Test Performed by [facility], [address] [place], [place] [id number] [place] [address], [place] Hematocrit (Bld) [Volume fraction] 33.2 % Low 35 - 47 % [facility], [place] Hemoglobin (Bld) [Mass/Vol] 11.0 g/dL Low 11.7 - 16 g/dL [facility], [place] Interpretation and review of laboratory results Abnormal [facility], [place] Test Performed by [facility], [address], [place], [place] [id number] [place] [address], [place] Magnesiumon 10-09-2019 Magnesium [Mass/Vol] 2.0 mg/dL 1.6 - 2 .3 mg/dL [facility], [place] Otheron 10-09-2019 Test Performed by [facility], [address] [place], [place] [id number] [place] [address], [place] POCT Arterialon 10-09-2019 Base Excess, Arterial 2.9 mmol/L -3 - 3 mmol/L [facility], [place] HCO3, Arterial 27.1 mmol/L High 21 - 25 mmol/L [facility], [place] Interpretation and review of laboratory results Abnormal [place] Oxygen saturation in Blood 99.1 % 95 - 100 % [facility], [place] pCO2, Arterial 39.2 mm[Hg] 35 - 45 mm[Hg] [facility], [place] pH, Arterial 7.448 [facility], [place] pO2, Arterial 128.8 mm[Hg] High 80 - 100 mm[Hg] [facility], [place] Sodium [Moles/Vol] 100 mmol/L [facility], [place] Comment on above: Performed by CLIA ID : [id number] [place], [place] TCO2, Arterial 28.3 mmol/L High 23 - 27 mmol/L [facility], [place] Test Performed by [facility], [address] [place], [place] [address] [place] [address] Base Excess, Arterial 2.8 mmol/L -3 - 3 mmol/L [facility], [place] HCO3, Arterial 26.5 mmol/L High 21 - 25 mmol/L [facility], [place] Interpretation and review of laboratory results Abnormal [place] Oxygen saturation in Blood 97.4 % 95 - 100 % [place] pCO2, Arterial 36.8 mm[Hg] 35 - 45 mm[Hg] [facility], [place] pH, Arterial 7.466 High [facility], [place] pO2, Arterial 89.3 mm[Hg] 80 - 100 mm[Hg] [facility], [place] Sodium [Moles/Vol] 40 mmol/L [facility], [place] Comment on above: Performed by CLIA ID : [id number] [place], [place] TCO2, Arterial 27.7 mmol/L High 23 - 27 mmol/L [facility], [place] Test Performed by [facility], [address] [place], [place], [place] [address] [place] [address], [place] Phosphoruson 10-09-2019 Phosphate [Mass/Vol] 4.3 mg/dL 2.5 - 4 .5 mg/dL [facility], [place] XR CHEST PORTABLEon 10-09-19 20 [place], [facility] - 10/09/2019 3:56 PM EDT Patient Name: CHARLIE NGUYEN ---Diagnostic Radiology--- Exam Date/Time 10/09/2019 14:12:00 EDT Exam CR Chest Portable Ordering Physician DES ROMERO Accession Number [id number] CPT4 Codes 52313 () Reason For Exam intubation Report Portable [...] M Transcribed Date and Time: 10/09/2019 3:56 [place] Patient Name: CHARLIE NGUYEN ---Diagnostic Radiology--- Exam Date/Time 10/09/2019 14:12:00 EDT Exam CR Chest Portable Ordering Physician DES ROMERO Accession Number [id number] CPT4 Codes 22023 () Reason For Exam intubation Report Portable [...] on --- Final --- Dictating Physician: MD BETH, LUIS CARLOS Duke Signed Date and Time: 10/09/2019 3:55 pm Signed by: MD BETH, LUIS CARLOS Duke Transcribed Date and Time: 10/09/2019 3:56 [place] Basic Metabolic Panelon 05 Anion gap [Moles/Vol] 8 mmol/L Stephanie [facility], [place] Calcium [Mass/Vol] 7.7 mg/dL Low 8.4 - 10. 4 mg/dL [place] Chloride [Moles/Vol] 103 mmol/L 98 - 10 7 mmol/L [facility], [place] CO2 [Moles/Vol] 25 mmol/L 22 - 30 mmol/L [place] Creatinine [Mass/Vol] 0.54 mg/dL 0.52 - 1.25 mg/dL [place] EGFR IF NonAfrican [place] >60.0 >60 mL/min [place] Comment on above: Source- MDRD equatio n with creatinine calibration to IDMS(NKDEP) eGFR not recommended for drug dose adjustment GFR/1.73 sq M predicted among blacks MDRD (S/P/Bld) [Vol rate/Area] mL/min/{1.73_m2} >60 mL/min [place] Glucose [Mass/Vol] 103 mg/dL High 70 - 100 mg/dL [place] Interpretation and review of laboratory results Abnormal [place] Potassium [Moles/Vol] 3.2 mmol/L Low 3.5 - 5.1 mmol/L [facility], [place] Sodium [Moles/Vol] 136 mmol/L 135 - 145 mmol/L [place] Urea nitrogen [Mass/Vol] 14 mg/dL 7 - 20 mg/d L [place] Test Performed by [facility], [address], [place], [place] [address] [place] Anion gap [Moles/Vol] 5 mmol/L Stephanie [facility], [place] Calcium [Mass/Vol] 7.5 mg/dL Low 8.4 - 10. 4 mg/dL [place] Chloride [Moles/Vol] 103 mmol/L 98 - 10 7 mmol/L [place] CO2 [Moles/Vol] 26 mmol/L 22 - 30 mmol/L [place] Creatinine [Mass/Vol] 0.53 mg/dL 0.52 - 1.25 mg/dL [place] EGFR IF NonAfrican [place] >60.0 >60 mL/min [place] Comment on above: Source- MDRD equatio n with creatinine calibration to IDMS(NKDEP) eGFR not recommended for drug dose adjustment GFR/1.73 sq M predicted among blacks MDRD (S/P/Bld) [Vol rate/Area] mL/min/{1.73_m2} >60 mL/min [place] Glucose [Mass/Vol] 125 mg/dL High 70 - 100 mg/dL [place] Interpretation and review of laboratory results Abnormal [place] Potassium [Moles/Vol] 3.5 mmol/L 3.5 - 5.1 mmol/L [place] Sodium [Moles/Vol] 134 mmol/L Low 135 - 145 mmol/L [place] Urea nitrogen [Mass/Vol] 15 mg/dL 7 - 20 mg/d L [place] Test Performed by [facility], [address] [place], [place] [address] [place] Anion gap [Moles/Vol] 8 mmol/L [place] Calcium [Mass/Vol] 7.5 mg/dL Low 8.4 - 10. 4 mg/dL [place] Chloride [Moles/Vol] 102 mmol/L 98 - 10 7 mmol/L [place] CO2 [Moles/Vol] 26 mmol/L 22 - 30 mmol/L [place] Creatinine [Mass/Vol] 0.5 mg/dL Low 0.52 - 1.25 mg/dL [place] EGFR IF NonAfrican [place] >60.0 >60 mL/min [place] Comment on above: Source- MDRD equatio n with creatinine calibration to IDMS(NKDEP) eGFR not recommended for drug dose adjustment GFR/1.73 sq M predicted among blacks MDRD (S/P/Bld) [Vol rate/Area] mL/min/{1.73_m2} >60 mL/min [place] Glucose [Mass/Vol] 113 mg/dL High 70 - 100 mg/dL [place] Interpretation and review of laboratory results Abnormal [place] Potassium [Moles/Vol] 3.2 mmol/L Low 3.5 - 5.1 mmol/L [place] Sodium [Moles/Vol] 135 mmol/L 135 - 145 mmol/L [place] Urea nitrogen [Mass/Vol] 16 mg/dL 7 - 20 mg/d L [place] Test Performed by [facility], [address] [place], [place] [address] [place] CBC Auto Differentialon 05-0 Absolute Baso # 0.1 10*3/uL 0 - 0.2 10*3/uL [place] Absolute Neut # 8.4 10*3/uL High 1.8 - 7 10*3/uL [place] Basophils/100 WBC (Bld) 0.7 % 0 - 2 % [place] Eosinophils (Bld) [#/Vol] 0.2 10*3/uL 0 - 0.5 10*3/uL [place] Eosinophils/100 WBC (Bld) 1.8 % 1 - 6 % [place] Erythrocyte distribution width (RBC) [Ratio] 15.0 % High 11.5 - 14.5 % [place] Granulocytes/100 WBC (Bld) 75.2 % 40 - 80 % [place] Hematocrit (Bld) [Volume fraction] 27.1 % Low 35 - 47 % [place] Hemoglobin (Bld) [Mass/Vol] 8.8 g/dL Low 11.7 - 16 g/dL [place] Interpretation and review of laboratory results Abnormal [place] Lymphocytes (Bld) [#/Vol] 1.2 10*3/uL 1 - 4.3 10*3/uL [place] Lymphocytes/100 WBC (Bld) 11.1 % Low 20 - 40 % [place] MCH (RBC) [Entitic mass] 31.6 pg 26 - 34 pg [place] MCHC (RBC) [Mass/Vol] 32.5 % 32 - 36 % [place], [place] MCV (RBC) [Entitic vol] 97.3 fL 79 - 98 fL [place], [place] Monocytes (Bld) [#/Vol] 1.2 10*3/uL High 0 - 0.8 10*3/uL [place] Monocytes/100 WBC (Bld) 11.2 % High 2 - 10 % [place], [place] Platelet mean volume (Bld) [Entitic vol] 8.7 fL 7.4 - 10.4 fL [place] Platelets (Bld) [#/Vol] 228 10*3/uL 140 - 440 10*3/uL [place] RBC (Bld) [#/Vol] 2.79 10*6/uL Low 3.8 - 5.2 10*6/uL [place] WBC (Bld) [#/Vol] 11.1 10*3/uL High 3.6 - 10.7 10*3/uL [place] Test Performed by [facility], [address] [place], [place] [address] [place] Culture, Blood 1on 0 Blood Culture, Routine No growth at 5 days. [place] Test Performed by [facility], [address] [place] [address] Specimen Source Comment:Blood [place] Culture, Respiratoryon 10-07 Interpretation and review of laboratory results Abnormal [place] Respiratory Culture Corynebacterium striatum Abnormal [place] Respiratory Culture Many Possible identification For identification and/or sensitivity, refer to culture collected on: 10/05/2019 at 0837, ([id number] ). [place] Respiratory Culture Staphylococcus aureus Abnormal [place] Respiratory Culture Moderate For identification and/or sensitivity, refer to culture collected on: 10/05/2019 at 0837 ([id number]) [place] Test Performed by [email or web address] [address] Specimen Source Comment:BAL- Right [place] Interpretation and review of laboratory results Abnormal [place] Respiratory Culture Many Possible identification [place] Respiratory Culture Corynebacterium striatum Abnormal [place] Respiratory Culture Many Negative for PBP2a (MSSA). [place] Respiratory Culture Staphylococcus aureus Abnormal [place] Respiratory Culture Rare normal respiratory naomi. Abnormal [place] Test Performed by [email or web address] [address] Specimen Source Comment:Sputum [place] ECHO Complete 2D W Doppler W Coloron 10-08-2019 Left ventricular Ejection fraction 61 [place] LVEF MODALITY ECHO [place], [facility] Incoming Cardiology Results From [facility] - 10/08/2019 1:21 PM EDT TRANSTHORACIC ECHOCARDIOGRAM PATIENT: Charlie Nguyen STUDY DATE: 10/08/2019 : 1955 AGE: 64 HT/WT: 175.3 cm (69 122.5 kg in) (269.4 lb) GENDER: F BP: 116 / 65 [facility] STATUS: *ORDERING PHYSICIAN: * Rajendra Kim *READING PHYSICIAN: * [place], ThelmaTOOL CHECKER: * MD LIZETTE Hobbs -------- INDICATIONS: Hypoxia. [...] Edmar Atkinson MD 10/08/2019 13:21 Prior Signatures: [facility], [place] TRANSTHORACIC ECHOCARDIOGRAM PATIENT: Charlie Nguyen STUDY DATE: 10/08/2019 : 1955 AGE: 64 HT/WT: 175.3 cm (69 122.5 kg in) (269.4 lb) GENDER: F BP: 116 / 65 LOCATION: [facility] PATIENT Inpatient [facility] STATUS: *ORDERING PHYSICIAN: * Rajendra Kim *READING PHYSICIAN: * [place], *TOOL CHECKER: * MD LIZETTE Hobbs -------- INDICATIONS: Hypoxia. [...] Edmar Atkinson MD 10/08/2019 13:21 Prior Signatures: [employer] EKG 12 Leadon 10-08-2019 [facility] Test Date: 2019-10-07 Pat Name: Charlie Nguyen [facility] Room: 232 Gender: F Clinical Laboratory Manager: GISELLE : 1955 Requested By: NICA SAL Order Number: [id number] Reading MD: Denver Lantigua Measurements Intervals Turner Rate: 72 P: 35 WY: 180 QRS: 2 QRSD: 112 T: 17 QT: 420 QTc: 460 Interpretive Statements SINUS RHYTHM Compared to ECG 10/07/2019 07:55:13 No significant changes Electronically Signed On 10-08-2019 13:12:36 EDT by Denver Lantigua [employer] [place], [facility] Incoming Cardiology Results From [facility] - 10/08/2019 1:13 PM EDT [facility] Test Date: 2019-10-07 Pat Name: Charlie Nguyen [facility] 232 Gender: F Clinical Laboratory Manager: GISELLE : 1955 Requested By: NICA SAL Order Number: [id number] Reading : Denver Lantigua Measurements Intervals Turner Rate: 72 P: 35 WY: 180 QRS: 2 QRSD: 112 T: 17 QT: 420 QTc: 460 Interpretive Statements SINUS RHYTHM Compared to ECG 10/07/2019 07:55:13 No significant changes Electronically Signed On 10-08-2019 13:12:36 EDT by Denver Lantigua [facility], [place] Hemoglobin and Hematocrit, B loodon 10-08-2019 Hematocrit (Bld) [Volume fraction] 34.3 % Low 35 - 47 % [facility] [place] Hemoglobin (Bld) [Mass/Vol] 11.4 g/dL Low 11.7 - 16 g/dL [facility], [place] Interpretation and review of laboratory results Abnormal [facility] [place], [place] Test Performed by [facility], [address] [place], [place] [address] [facility], [place] Hematocrit (Bld) [Volume fraction] 31.9 % Low 35 - 47 % [facility], [place] Hemoglobin (Bld) [Mass/Vol] 10.6 g/dL Low 11.7 - 16 g/dL [facility], [place] Interpretation and review of laboratory results Abnormal [facility] Test Performed by [facility], [address] [place], [place] [address] [place] [address], [place] Magnesiumon 10-08-2019 Interpretation and review of laboratory results Abnormal [facility] [place] Magnesium [Mass/Vol] 1.3 mg/dL Low 1.6 - 2 .3 mg/dL [facility], [place] Otheron 10-08-2019 Test Performed by [facility], [address] [place], [place] [id number] [place] [address] [facility] [place] POCT Arterialon 10-08-2019 Base Excess, Arterial 0.8 mmol/L -3 - 3 mmol/L [facility] [place] HCO3, Arterial 24.2 mmol/L 21 - 25 mmol/L [facility], [place] Interpretation and review of laboratory results Abnormal [facility] [place] Oxygen saturation in Blood 93.9 % Low 95 - 100 % [facility], [place] pCO2, Arterial 33.7 mm[Hg] Low 35 - 45 mm[Hg] [facility], [place] pH, Arterial 7.464 High [facility], [place] pO2, Arterial 65.5 mm[Hg] Low 80 - 100 mm[Hg] [place] Sodium [Moles/Vol] 50 mmol/L [place] Comment on above: Performed by CLIA ID : [id number] [place], [place] TCO2, Arterial 25.3 mmol/L 23 - 27 mmol/L [place] Test Performed by [facility], [address], [place], [place] [address] [place] Phosphoruson 10-08-2019 Phosphate [Mass/Vol] 2.8 mg/dL 2.5 - 4 .5 mg/dL [place] XR CHEST PORTABLEon 10-08-19 20 Patient Name: CHARLIE NGUYEN ---Diagnostic Radiology--- Exam Date/Time 10/08/2019 10:52:00 EDT Exam CR Chest Portable Ordering Physician DES ROMERO Accession Number [id number] CPT4 Codes 07662 () Reason For Exam central line placement [...] JEFFREY Transcribed Date and Time: 10/08/2019 11:13 [place], [place], [facility] Incoming [facility] 10/08/2019 11:13 AM EDT Patient Name: CHARLIE NGUYEN ---Diagnostic Radiology--- Exam Date/Time 10/08/2019 10:52:00 EDT Exam CR Chest Portable Ordering Physician DES ROMERO Accession Number [id number] CPT4 Codes 47771 () Reason For Exam central line placement [...] JEFFREY Transcribed Date and Time: 10/08/2019 11:13 [place] Basic Metabolic Panelon 05-0 Anion gap [Moles/Vol] 6 mmol/L [place] Calcium [Mass/Vol] 6.7 mg/dL Low 8.4 - 10. 4 mg/dL [place] Chloride [Moles/Vol] 108 mmol/L High 98 - 10 7 mmol/L [place] CO2 [Moles/Vol] 22 mmol/L 22 - 30 mmol/L [place] Creatinine [Mass/Vol] 0.42 mg/dL Low 0.52 - 1.25 mg/dL [place] EGFR IF NonAfrican [place] >60.0 >60 mL/min [place] Comment on above: Source- MDRD equatio n with creatinine calibration to IDMS(NKDEP) eGFR not recommended for drug dose adjustment GFR/1.73 sq M predicted among blacks MDRD (S/P/Bld) [Vol rate/Area] mL/min/{1.73_m2} >60 mL/min [place] Glucose [Mass/Vol] 103 mg/dL High 70 - 100 mg/dL [place] Interpretation and review of laboratory results Abnormal [place] Potassium [Moles/Vol] 3.3 mmol/L Low 3.5 - 5.1 mmol/L [place] Sodium [Moles/Vol] 136 mmol/L 135 - 145 mmol/L [place] Urea nitrogen [Mass/Vol] 17 mg/dL 7 - 20 mg/d L [place] Test Performed by [facility], [address], [place], [place] [address] [place] Anion gap [Moles/Vol] 6 mmol/L [place] Calcium [Mass/Vol] 7.5 mg/dL Low 8.4 - 10. 4 mg/dL [place] Chloride [Moles/Vol] 106 mmol/L 98 - 10 7 mmol/L [place] CO2 [Moles/Vol] 25 mmol/L 22 - 30 mmol/L [place] Creatinine [Mass/Vol] 0.55 mg/dL 0.52 - 1.25 mg/dL [place] EGFR IF NonAfrican [place] >60.0 >60 mL/min [place] Comment on above: Source- MDRD equatio n with creatinine calibration to IDMS(NKDEP) eGFR not recommended for drug dose adjustment GFR/1.73 sq M predicted among blacks MDRD (S/P/Bld) [Vol rate/Area] mL/min/{1.73_m2} >60 mL/min [place] Glucose [Mass/Vol] 114 mg/dL High 70 - 100 mg/dL [place] Interpretation and review of laboratory results Abnormal [place] Potassium [Moles/Vol] 3.4 mmol/L Low 3.5 - 5.1 mmol/L [place] Sodium [Moles/Vol] 138 mmol/L 135 - 145 mmol/L [place] Urea nitrogen [Mass/Vol] 17 mg/dL 7 - 20 mg/d L [place], [place] CBC Auto Differentialon 05-0 Absolute Baso # 0.0 10*3/uL 0 - 0.2 10*3/uL [place] Absolute Neut # 8.6 10*3/uL High 1.8 - 7 10*3/uL [place] Basophils/100 WBC (Bld) 0.4 % 0 - 2 % [place], [place] Eosinophils (Bld) [#/Vol] 0.2 10*3/uL 0 - 0.5 10*3/uL [place] Eosinophils/100 WBC (Bld) 1.7 % 1 - 6 % [place] Erythrocyte distribution width (RBC) [Ratio] 15.2 % High 11.5 - 14.5 % [place] Granulocytes/100 WBC (Bld) 78.3 % 40 - 80 % [place] Hematocrit (Bld) [Volume fraction] 34.1 % Low 35 - 47 % [place] Hemoglobin (Bld) [Mass/Vol] 11.3 g/dL Low 11.7 - 16 g/dL [place] Interpretation and review of laboratory results Abnormal [place] Lymphocytes (Bld) [#/Vol] 1.3 10*3/uL 1 - 4.3 10*3/uL [place] Lymphocytes/100 WBC (Bld) 11.8 % Low 20 - 40 % [place] MCH (RBC) [Entitic mass] 32.2 pg 26 - 34 pg [place] MCHC (RBC) [Mass/Vol] 33.2 % 32 - 36 % [place] MCV (RBC) [Entitic vol] 96.9 fL 79 - 98 fL [place], [place] Monocytes (Bld) [#/Vol] 0.9 10*3/uL High 0 - 0.8 10*3/uL [place] Monocytes/100 WBC (Bld) 7.8 % 2 - 10 % [place] Platelet mean volume (Bld) [Entitic vol] 8.8 fL 7.4 - 10.4 fL [place] Platelets (Bld) [#/Vol] 204 10*3/uL 140 - 440 10*3/uL [place] RBC (Bld) [#/Vol] 3.52 10*6/uL Low 3.8 - 5.2 10*6/uL [place] WBC (Bld) [#/Vol] 11.0 10*3/uL High 3.6 - 10.7 10*3/uL [place] Test Performed by [facility], [address], [place], [place] [address] [place] EKG 12 Leadon 10-07-2019 [facility] Test Date: 2019-10-06 Pat Name: Charlie Nguyen [facility] Room: 232 Gender: F Clinical Laboratory Manager: RE : 1955 Requested By: NICA Nexus BiosystemsMARCO A Order Number: [id number] Reading MD: Kurtis Urbina Measurements Intervals Turner Rate: 73 P: 35 WY: 168 QRS: 17 QRSD: 104 T: 42 QT: 400 QTc: 441 Interpretive Statements SINUS RHYTHM mildly widened QRS complex VENTRICULAR PREMATURE COMPLEX Electronically Signed On 10-07-2019 13:02:46 EDT by Kurtis Urbina [facility], [facility] Incoming Cardiology [facility] - 10/07/2019 1:03 PM EDT [facility] Test Date: 2019-10-06 Pat Name: Charlie Patrick [facility] Room: 232 Gender: F Clinical Laboratory Manager: RE : 1955 Requested By: NICA Nexus BiosystemsMARCO A Order Number: [id number] Reading MD: Kurtis Urbina Measurements Intervals Turner Rate: 73 P: 35 WY: 168 QRS: 17 QRSD: 104 T: 42 QT: 400 QTc: 441 Interpretive Statements SINUS RHYTHM mildly widened QRS complex VENTRICULAR PREMATURE COMPLEX Electronically Signed On 10-07-2019 13:02:46 EDT by Kurtis Urbina [place], [facility] Incoming Cardiology [facility] - 10/07/2019 12:57 PM EDT [facility] Test Date: 2019-10-05 Pat Name: Charlie Nguyen Department: 03 Room: 232 Gender: F Clinical Laboratory Manager: GISELLE : 1955 Requested By: NICA SAL Order Number: [id number] Reading MD: Kurtis Urbina Measurements Intervals Turner Rate: 70 P: 50 WY: 164 QRS: 29 QRSD: 106 T: 44 QT: 388 QTc: 419 Interpretive Statements SINUS RHYTHM VENTRICULAR TRIGEMINY BORDERLINE INTRAVENTRICULAR CONDUCTION DELAY Electronically Signed On 10-07-2019 12:56:39 EDT by Kurtis WardMaaguzijaida [facility] Test Date: 2019-10-05 Pat Name: Charlie Nguyen Department: 03 Room: 232 Gender: F Clinical Laboratory Manager: GISELLE : 1955 Requested By: NICA SAL Order Number: [id number] Reading MD: Kurtis Urbina Measurements Intervals Turner Rate: 70 P: 50 WY: 164 QRS: 29 QRSD: 106 T: 44 QT: 388 QTc: 419 Interpretive Statements SINUS RHYTHM VENTRICULAR TRIGEMINY BORDERLINE INTRAVENTRICULAR CONDUCTION DELAY Electronically Signed On 10-07-2019 12:56:39 EDT by [facility]is [facility] Incoming Cardiology Results From [facility] - 10/07/2019 12:37 PM EDT [facility] Test Date: 2019-10-05 Pat Name: Charlie Hicksell [facility] Room: 232 Gender: F Clinical Laboratory Manager: VANESSA : 1955 Requested By: NICA SAL Order Number: [id number] Reading MD: Kurtis Urbina Measurements Intervals Turner Rate: 115 P: 41 WY: 168 QRS: 4 QRSD: 104 T: 56 QT: 320 QTc: 443 Interpretive Statements SINUS TACHYCARDIA nonspecific intraventricular conduction delay BORDERLINE R WAVE PROGRESSION, ANTERIOR LEADS Electronically Signed On 10-07-2019 12:36:[address] [facility] Test Date: 2019-10-05 Pat Name: Charlie Nguyen [facility] 232 Gender: F Clinical Laboratory Manager: RE : 1955 Requested By: NICA BOTSCH Order Number: [id number] Reading MD: Kurtis Urbina Measurements Intervals Turner Rate: 115 P: 41 WY: 168 QRS: 4 QRSD: 104 T: 56 QT: 320 QTc: 443 Interpretive Statements SINUS TACHYCARDIA nonspecific intraventricular conduction delay BORDERLINE R WAVE PROGRESSION, ANTERIOR LEADS Electronically Signed On 10-07-2019 12:36:21 EDT by Kurtis Urbina [facility] Test Date: 2019-10-06 Pat Name: Charlie Nguyen Department: [facility] Room: 232 Gender: F Clinical Laboratory Manager: [place] : 1955 Requested By: NICA Nexus BiosystemsSCH Order Number: [id number] Reading MD: Tara Mari Measurements Intervals Turner Rate: 68 P: 32 WY: 180 QRS: 0 QRSD: 104 T: 16 QT: 432 QTc: 460 Interpretive Statements SINUS RHYTHM Compared to ECG 10/06/2019 07:54:36 Ventricular premature complex(es) no longer present Electronically Signed On 10-07-2019 12:16:42 EDT by [facility] Incoming Cardiology [facility] - 10/07/2019 12:17 PM EDT [facility] Test Date: 2019-10-06 Pat Name: Charlie Nguyen Department: [facility] Room: 232 Gender: F Clinical Laboratory Manager: [place] : 1955 Requested By: NICA BOTSCH Order Number: [id number] Reading MD: Tara Mari Measurements Intervals Turner Rate: 68 P: 32 WY: 180 QRS: 0 QRSD: 104 T: 16 QT: 432 QTc: 460 Interpretive Statements SINUS RHYTHM Compared to ECG 10/06/2019 07:54:36 Ventricular premature complex(es) no longer present Electronically Signed On 10-07-2019 12:16:42 EDT by [facility], [facility] Incoming Cardiology Results [facility] - 10/07/2019 12:13 PM EDT [facility] Test Date: 2019-10-07 Pat Name: Charlie Nguyen Department: [facility] Room: 232 Gender: F Clinical Laboratory Manager: RE : 1955 Requested By: NICA SAL Order Number: [id number] Reading MD: Tara Mari Measurements Intervals Turner Rate: 66 P: 57 WY: 176 QRS: 6 QRSD: 108 T: 18 QT: 444 QTc: 466 Interpretive Statements SINUS RHYTHM BORDERLINE INTRAVENTRICULAR CONDUCTION DELAY Compared to ECG 10/06/2019 20:43:01 No significant changes Electronically Signed On 10-07-2019 12:12:42 EDT by [facility] [employer] [facility], [employer] [facility] Test Date: 2019-10-07 Pat Name: Charlie Nguyen [facility] Room: 232 Gender: F Clinical Laboratory Manager: RE : 1955 Requested By: NICA SAL Order Number: [id number] Reading MD: Tara Mari Measurements Intervals Turner Rate: 66 P: 57 WY: 176 QRS: 6 QRSD: 108 T: 18 QT: 444 QTc: 466 Interpretive Statements SINUS RHYTHM BORDERLINE INTRAVENTRICULAR CONDUCTION DELAY Compared to ECG 10/06/2019 20:43:01 No significant changes Electronically Signed On 10-07-2019 12:12:42 EDT by [facility] [employer] [facility] Test Date: 2019-10-03 Pat Name: Charlie Patrick Department: 3 Room: 232 Gender: F Clinical Laboratory Manager: [place] : 1955 Requested By: RAJENDRA KIM Order Number: [id number] Reading MD: Kurtis Hi Measurements Intervals Turner Rate: 103 P: 7 WY: 160 QRS: -7 QRSD: 108 T: 222 QT: 364 QTc: 477 Interpretive Statements SINUS TACHYCARDIA BORDERLINE INTRAVENTRICULAR CONDUCTION DELAY NONSPECIFIC T ABNORMALITIES, INFERIOR LEADS Compared to ECG 10/03/2019 07:51:05 T-wave abnormality now present Sinus rhythm no longer present Left ventricular hypertrophy no longer present Electronically Signed On 10-07-2019 11:54:11 EDT by Kurtis Hi [facility], [facility] Incoming Cardiology Results From [facility] - 10/07/2019 11:55 AM EDT [facility] Test Date: 2019-10-03 Pat Name: Charlie Nguyen Department: 3 Room: 232 Gender: F Clinical Laboratory Manager: GISELLE : 1955 Requested By: RAJENDRA KIM Order Number: [id number] Reading MD: Kurtis Hi Measurements Intervals Turner Rate: 103 P: 7 WY: 160 QRS: -7 QRSD: 108 T: 222 QT: 364 QTc: 477 Interpretive Statements SINUS TACHYCARDIA BORDERLINE INTRAVENTRICULAR CONDUCTION DELAY NONSPECIFIC T ABNORMALITIES, INFERIOR LEADS Compared to ECG 10/03/2019 07:51:05 T-wave abnormality now present Sinus rhythm no longer present Left ventricular hypertrophy no longer present Electronically Signed On 10-07-2019 11:54:11 EDT by Kurtis Hi [place] Magnesiumon 10-07-2019 Magnesium [Mass/Vol] 1.7 mg/dL 1.6 - 2 .3 mg/dL [place] Otheron 10-07-2019 Test Per[facility], [address] POCT Arterialon 10-07-2019 Base Excess, Arterial 0.1 mmol/L -3 - 3 mmol/L [place] HCO3, Arterial 23.3 mmol/L 21 - 25 mmol/L [place] Interpretation and review of laboratory results Abnormal [place] Oxygen saturation in Blood 95.1 % 95 - 100 % [place] pCO2, Arterial 32.6 mm[Hg] Low 35 - 45 mm[Hg] [place], [place] pH, Arterial 7.462 High [place] pO2, Arterial 70.7 mm[Hg] Low 80 - 100 mm[Hg] [place] Sodium [Moles/Vol] 50 mmol/L [place] Comment on above: Performed by DAYNAIA ID : [id number] [place], [place] TCO2, Arterial 24.3 mmol/L 23 - 27 mmol/L [place] Test Performed by [facility], [address] [place], [place] [address] [place] Phosphoruson 10-07-2019 Phosphate [Mass/Vol] 3.0 mg/dL 2.5 - 4 .5 mg/dL [place] Add On Lab Teston 10-06-2019 Sodium [Moles/Vol] Accepted [place], [place] Comment on above: Specimen available & acceptable for analysis. Test Performed by [facility], [address], [place], [place] [address] [place] Basic Metabolic Panelon Anion gap [Moles/Vol] 6 mmol/L [place] Calcium [Mass/Vol] 7.5 mg/dL Low 8.4 - 10. 4 mg/dL [place] Chloride [Moles/Vol] 105 mmol/L 98 - 10 7 mmol/L [place] CO2 [Moles/Vol] 26 mmol/L 22 - 30 mmol/L [place] Creatinine [Mass/Vol] 0.58 mg/dL 0.52 - 1.25 mg/dL [place] EGFR IF NonAfrican [place] >60.0 >60 mL/min [place] Comment on above: Source- MDRD equatio n with creatinine calibration to IDMS(NKDEP) eGFR not recommended for drug dose adjustment GFR/1.73 sq M predicted among blacks MDRD (S/P/Bld) [Vol rate/Area] mL/min/{1.73_m2} >60 mL/min [place] Glucose [Mass/Vol] 85 mg/dL 70 - 100 mg/dL [place] Interpretation and review of laboratory results Abnormal [place] Potassium [Moles/Vol] 3.8 mmol/L 3.5 - 5.1 mmol/L [place] Sodium [Moles/Vol] 137 mmol/L 135 - 145 mmol/L [place] Urea nitrogen [Mass/Vol] 17 mg/dL 7 - 20 mg/d L [place] Test Performed by [facility], [address], [place], [place] [address] [place] Anion gap [Moles/Vol] 7 mmol/L [place] Calcium [Mass/Vol] 7.7 mg/dL Low 8.4 - 10. 4 mg/dL [place] Chloride [Moles/Vol] 104 mmol/L 98 - 10 7 mmol/L [place] CO2 [Moles/Vol] 26 mmol/L 22 - 30 mmol/L [place] Creatinine [Mass/Vol] 0.55 mg/dL 0.52 - 1.25 mg/dL [place] EGFR IF NonAfrican [place] >60.0 >60 mL/min [place] Comment on above: Source- MDRD equatio n with creatinine calibration to IDMS(NKDEP) eGFR not recommended for drug dose adjustment GFR/1.73 sq M predicted among blacks MDRD (S/P/Bld) [Vol rate/Area] mL/min/{1.73_m2} >60 mL/min [place] Glucose [Mass/Vol] 89 mg/dL 70 - 100 mg/dL [place] Interpretation and review of laboratory results Abnormal [place] Potassium [Moles/Vol] 4.0 mmol/L 3.5 - 5.1 mmol/L [place] Sodium [Moles/Vol] 137 mmol/L 135 - 145 mmol/L [place] Urea nitrogen [Mass/Vol] 18 mg/dL 7 - 20 mg/d L [place] Test Performed by [facility], [address] [place], [place] [address] [place] CBC Auto Differentialon 05-0 Erythrocyte distribution width (RBC) [Ratio] 15.3 % High 11.5 - 14.5 % [place] Hematocrit (Bld) [Volume fraction] 34.5 % Low 35 - 47 % [place] Hemoglobin (Bld) [Mass/Vol] 11.2 g/dL Low 11.7 - 16 g/dL [place] Interpretation and review of laboratory results Abnormal [place] MCH (RBC) [Entitic mass] 31.7 pg 26 - 34 pg [place] MCHC (RBC) [Mass/Vol] 32.4 % 32 - 36 % [place] MCV (RBC) [Entitic vol] 97.8 fL 79 - 98 fL [place], [place] Platelet mean volume (Bld) [Entitic vol] 8.9 fL 7.4 - 10.4 fL [place] Platelets (Bld) [#/Vol] 146 10*3/uL 140 - 440 10*3/uL [place] RBC (Bld) [#/Vol] 3.53 10*6/uL Low 3.8 - 5.2 10*6/uL [place] WBC (Bld) [#/Vol] 11.6 10*3/uL High 3.6 - 10.7 10*3/uL [place] Test Performed by [facility], [address] [place], [place], [place] [address] [place] Gram Stainon 10-06-2019 INR Coag (Bld) [Relative time] Many polymorphonuclear cells/lpf. Rare epithelial cells/lpf. Rare gram positive cocci. [place] Test Performed by [facility], [address] [place] [id number] Specimen Source Comment:BAL- Right [place] Magnesiumon 10-06-2019 Magnesium [Mass/Vol] 1.8 mg/dL 1.6 - 2 .3 mg/dL [place] Test Performed by [facility], [address] [place], [place] [address] [place] Manual Differentialon 2019 Absolute Baso # 0.0 10*3/uL 0 - 0.2 10*3/uL [place] Absolute Eos # 0.2 10*3/uL 0 - 0.5 10*3/uL [place] Absolute Lymph # 0.9 10*3/uL Low 1.1 - 4.5 10*3/uL [place] Absolute [place] # 0.3 10*3/uL 0.2 - 1.1 10*3/uL [place] Absolute Neut # 10.1 10*3/uL High 2.2 - 8.2 10*3/uL [place] Anisocytosis Ql (Bld) Slight [facility] [place], [place] Bands 0 % 0 - 3 % [facility] [place] Basophils 0 % 0 - 2 % [facility] Eosinophils 2 % 1 - 6 % [facility] Interpretation and review of laboratory results Abnormal [facility] Lymphocytes 8 % Low 20 - 40 % [facility] Macrocytosis Slight [facility] Monocytes 3 % 2 - 10 % [facility] RBC morphology finding Nom (Bld) ABNORMAL [facility] [place] Seg Neutrophils 87 % High 40 - 80 % [facility] TOTAL CELLS COUNTED 100 [facility] [place], [place] Test Performed by [facility], [address], [place], [place] [address] [facility] [place] POCT Arterialon 10-06-2019 Base Excess, Arterial 0.3 mmol/L -3 - 3 mmol/L [facility] [place], [place] HCO3, Arterial 23.1 mmol/L 21 - 25 mmol/L [facility] [place] Interpretation and review of laboratory results Abnormal [facility], [place] Oxygen saturation in Blood 94.8 % Low 95 - 100 % [facility] [place] pCO2, Arterial 30.9 mm[Hg] Low 35 - 45 mm[Hg] [facility] [place] pH, Arterial 7.482 High [facility], [place] pO2, Arterial 67.6 mm[Hg] Low 80 - 100 mm[Hg] [facility], [place] Sodium [Moles/Vol] 50 mmol/L [facility], [place] Comment on above: Performed by LATASHA ID : [id number] [place], [place] TCO2, Arterial 24.1 mmol/L 23 - 27 mmol/L [facility] [place] Test Performed by [facility], [address], [place], [place] [address] [facility] [place] Base Excess, Arterial 3.2 mmol/L High -3 - 3 mmol/L [facility] [place] HCO3, Arterial 27.1 mmol/L High 21 - 25 mmol/L [facility] [place] Interpretation and review of laboratory results Abnormal [place] Oxygen saturation in Blood 92.6 % Low 95 - 100 % [place] pCO2, Arterial 38.1 mm[Hg] 35 - 45 mm[Hg] [place] pH, Arterial 7.460 [place] pO2, Arterial 62.0 mm[Hg] Low 80 - 100 mm[Hg] [place] Sodium [Moles/Vol] 50 mmol/L [place] Comment on above: Performed by CLIA ID : [id number] [place], [place] TCO2, Arterial 28.3 mmol/L High 23 - 27 mmol/L [place] Test Performed by [facility], [address], [place], [place] [address] [place] RENAL + LIVER PROFon 020 Albumin [Mass/Vol] 2.8 g/dL Low 3.5 - 5 g/dL [place] ALP [Catalytic activity/Vol] 132 U/L High 38 - 126 U/L [place] ALT [Catalytic activity/Vol] 14 U/L 0 - 34 U/L [place] Comment on above: The ALT test is perf ormed by an updated assay method. Please note that the reference intervals have been changed and are now sex specific. Anion gap [Moles/Vol] 6 mmol/L [place] AST [Catalytic activity/Vol] 26 U/L 15 - 46 U/L [place] Bilirubin Ql (U) 1.0 mg/dL 0.2 - 1.3 mg/dL [place] Bilirubin.direct [Mass/Vol] 0.0 mg/dL 0 - 0.3 mg/dL [place] Calcium [Mass/Vol] 7.8 mg/dL Low 8.4 - 10. 4 mg/dL [place] Chloride [Moles/Vol] 103 mmol/L 98 - 10 7 mmol/L [place] CO2 [Moles/Vol] 27 mmol/L 22 - 30 mmol/L [place] Creatinine [Mass/Vol] 0.56 mg/dL 0.52 - 1.25 mg/dL [place] EGFR IF NonAfrican [place] >60.0 >60 mL/min [place] Comment on above: Source- MDRD equatio n with creatinine calibration to IDMS(NKDEP) eGFR not recommended for drug dose adjustment GFR/1.73 sq M predicted among blacks MDRD (S/P/Bld) [Vol rate/Area] mL/min/{1.73_m2} >60 mL/min [place] Glucose [Mass/Vol] 99 mg/dL 70 - 100 mg/dL [place] Interpretation and review of laboratory results Abnormal [place] Phosphate [Mass/Vol] 2.8 mg/dL 2.5 - 4 .5 mg/dL [place] Potassium [Moles/Vol] 3.9 mmol/L 3.5 - 5.1 mmol/L [place] Protein [Mass/Vol] 6.2 g/dL Low 6.3 - 8.2 g/dL [place] Sodium [Moles/Vol] 136 mmol/L 135 - 145 mmol/L [place] Urea nitrogen [Mass/Vol] 17 mg/dL 7 - 20 mg/d L [place] Test Performed by [facility], [address] [place], [place] [address] [place] [address] Add On Lab Teston 10-05-2019 Sodium [Moles/Vol] Accepted [place] Comment on above: Specimen available & acceptable for analysis. Test Performed by [facility], [address] [place], [place] [address] [place] Basic Metabolic Panelon 05-0 Anion gap [Moles/Vol] 5 mmol/L [place] Calcium [Mass/Vol] 7.4 mg/dL Low 8.4 - 10. 4 mg/dL [place] Chloride [Moles/Vol] 104 mmol/L 98 - 10 7 mmol/L [place] CO2 [Moles/Vol] 27 mmol/L 22 - 30 mmol/L [place] Creatinine [Mass/Vol] 0.48 mg/dL Low 0.52 - 1.25 mg/dL [place] EGFR IF NonAfrican [place] >60.0 >60 mL/min [place] Comment on above: Source- MDRD equatio n with creatinine calibration to IDMS(NKDEP) eGFR not recommended for drug dose adjustment GFR/1.73 sq M predicted among blacks MDRD (S/P/Bld) [Vol rate/Area] mL/min/{1.73_m2} >60 mL/min [place] Glucose [Mass/Vol] 91 mg/dL 70 - 100 mg/dL [place] Interpretation and review of laboratory results Abnormal [place] Potassium [Moles/Vol] 3.6 mmol/L 3.5 - 5.1 mmol/L [place] Sodium [Moles/Vol] 135 mmol/L 135 - 145 mmol/L [place] Urea nitrogen [Mass/Vol] 15 mg/dL 7 - 20 mg/d L [place] Test Performed by [facility], [address] [place], [place] [address] [place] Anion gap [Moles/Vol] 4 mmol/L [place] Calcium [Mass/Vol] 6.0 mg/dL Low 8.4 - 10. 4 mg/dL [place] Chloride [Moles/Vol] 111 mmol/L High 98 - 10 7 mmol/L [place] CO2 [Moles/Vol] 24 mmol/L 22 - 30 mmol/L [place] Creatinine [Mass/Vol] 0.43 mg/dL Low 0.52 - 1.25 mg/dL [place] EGFR IF NonAfrican [place] >60.0 >60 mL/min [place] Comment on above: Source- MDRD equatio n with creatinine calibration to IDMS(NKDEP) eGFR not recommended for drug dose adjustment GFR/1.73 sq M predicted among blacks MDRD (S/P/Bld) [Vol rate/Area] mL/min/{1.73_m2} >60 mL/min [facility], [place] Glucose [Mass/Vol] 87 mg/dL 70 - 100 mg/dL [place] Interpretation and review of laboratory results Abnormal [place] Potassium [Moles/Vol] 3.5 mmol/L 3.5 - 5.1 mmol/L [place] Sodium [Moles/Vol] 138 mmol/L 135 - 145 mmol/L [place] Urea nitrogen [Mass/Vol] 13 mg/dL 7 - 20 mg/d L [place] Test [facility], [address], [place], [place] [address] [place] Anion gap [Moles/Vol] 4 mmol/L [place] Calcium [Mass/Vol] 6.3 mg/dL Low 8.4 - 10. 4 mg/dL [place] Chloride [Moles/Vol] 106 mmol/L 98 - 10 7 mmol/L [place] CO2 [Moles/Vol] 26 mmol/L 22 - 30 mmol/L [place] Creatinine [Mass/Vol] 0.47 mg/dL Low 0.52 - 1.25 mg/dL [place] EGFR IF NonAfrican [place] >60.0 >60 mL/min [place] Comment on above: Source- MDRD equatio n with creatinine calibration to IDMS(NKDEP) eGFR not recommended for drug dose adjustment GFR/1.73 sq M predicted among blacks MDRD (S/P/Bld) [Vol rate/Area] mL/min/{1.73_m2} >60 mL/min [place] Glucose [Mass/Vol] 93 mg/dL 70 - 100 mg/dL [place] Interpretation and review of laboratory results Abnormal [place] Potassium [Moles/Vol] 3.5 mmol/L 3.5 - 5.1 mmol/L [place] Sodium [Moles/Vol] 136 mmol/L 135 - 145 mmol/L [place] Urea nitrogen [Mass/Vol] 14 mg/dL 7 - 20 mg/d L [place] Test Performed by [facility], [address], [place], [place] [address] [place] CBC Auto Differentialon 05 Erythrocyte distribution width (RBC) [Ratio] 15.3 % High 11.5 - 14.5 % [place] Hematocrit (Bld) [Volume fraction] 33.3 % Low 35 - 47 % [place] Hemoglobin (Bld) [Mass/Vol] 10.5 g/dL Low 11.7 - 16 g/dL [place] Interpretation and review of laboratory results Abnormal [place] MCH (RBC) [Entitic mass] 31.1 pg 26 - 34 pg [place] MCHC (RBC) [Mass/Vol] 31.6 % Low 32 - 36 % Stephanie [place], [place] MCV (RBC) [Entitic vol] 98.5 fL High 79 - 98 fL [place] Platelet mean volume (Bld) [Entitic vol] 9.1 fL 7.4 - 10.4 fL [place] Platelets (Bld) [#/Vol] 131 10*3/uL Low 140 - 440 10*3/uL [place] RBC (Bld) [#/Vol] 3.38 10*6/uL Low 3.8 - 5.2 10*6/uL [place] WBC (Bld) [#/Vol] 11.1 10*3/uL High 3.6 - 10.7 10*3/uL [place] Test Performed by [facility], [address] [place], [place] [address] [place] [address] CTA CHEST W WO CONTRASTon Patient Name: CHARLIE NGUYEN ---CT--- Exam Date/Time 10/05/2019 11:55:25 EDT Exam CTA Chest w/ + w/o Contrast Ordering Physician MD JUDY, [facility] Accession Number [id number] CPT4 Codes 12032 (), Q9967 (CT ISOVUE [id number] ML&1) Reason For Exam pulmonary emboli Report [...] DIANE Transcribed Date and Time: 10/05/2019 12:16 [place], [facility] Incoming Radiology Results From [facility] - 10/05/2019 12:17 PM EDT Patient Name: CHARLIE NGUYEN ---CT--- Exam Date/Time 10/05/2019 11:55:25 EDT Exam CTA Chest w/ + w/o Contrast Ordering Physician MD JUDY, RAJENDRA Accession Number [id number] CPT4 Codes 39425 (), Q9967 (CT ISOVUE [id number] ML&1) Reason For Exam pulmonary emboli Report [...] DIANE Transcribed Date and Time: 10/05/2019 12:16 [place] Calcium, Ionizedon 0 Interpretation and review of laboratory results Abnormal [place] Ionized Ca 3.50 mg/dL Low 4.3 - 5.2 mg/dL [place] pH (Bld) 7.42 [pH] [place] Test Performed by [facility], [address] [place], [place] [id number] [facility], [place] EKG 12 Leadon 10-05-2019 [facility] Test Date: 2019-10-04 Pat Name: Charlie Nguyen [facility] Room: 232 Gender: F Clinical Laboratory Manager: GISELLE : 1955 Requested By: NICA SAL Order Number: [id number] Reading MD: Aldair Chao Measurements Intervals Turner Rate: 99 P: 22 WY: 156 QRS: 5 QRSD: 100 T: 69 QT: 344 QTc: 442 Interpretive Statements SINUS RHYTHM BORDERLINE T WAVE ABNORMALITIES Compared to ECG 10/04/2019 08:40:28 Sinus tachycardia no longer present T-wave abnormality still present Electronically Signed On 10-05-2019 11:00:42 EDT by [facility], [place] Rod[place], [facility] Incoming Cardiology [facility] - 10/05/2019 11:01 AM EDT [facility] Test Date: 2019-10-04 Pat Name: Charlie Nguyen Department: [facility] Room: 232 Gender: F Clinical Laboratory Manager: GISELLE : 1955 Requested By: NICA SAL Order Number: [id number] Reading MD: Aldair Chao Measurements Intervals Turner Rate: 99 P: 22 WY: 156 QRS: 5 QRSD: 100 T: 69 QT: 344 QTc: 442 Interpretive Statements SINUS RHYTHM BORDERLINE T WAVE ABNORMALITIES Compared to ECG 10/04/2019 08:40:28 Sinus tachycardia no longer present T-wave abnormality still present Electronically Signed On 10-05-2019 11:00:42 EDT by Aldair [facility], [facility] Test Date: 2019-10-04 Pat Name: Charlie Nguyen [facility] 232 Gender: F Clinical Laboratory Manager: OTONIEL : 1955 Requested By: NICA BOTSCH Order Number: [id number] Reading MD: Aldair Chao Measurements Intervals Turner Rate: 105 P: 10 WY: 164 QRS: 0 QRSD: 102 T: 259 QT: 308 QTc: 408 Interpretive Statements SINUS TACHYCARDIA LATE PRECORDIAL R/S TRANSITION NONSPECIFIC T ABNORMALITIES, LATERAL LEADS Compared to ECG 10/03/2019 21:59:07 Ventricular premature complex(es) no longer present Myocardial infarct finding no longer present Possible ischemia no longer present T-wave abnormality still present Electronically Signed On 10-05-2019 10:59:16 EDT by Aldair Chao [facility], [facility], [facility] Incoming Cardiology Results From [facility] - 10/05/2019 11:00 AM EDT [facility] Test Date: 2019-10-04 Pat Name: Charlie Nguyen Department: [facility] Room: 232 Gender: F Clinical Laboratory Manager: SH : 1955 Requested By: NICA SAL Order Number: [id number] Reading MD: Aldair Chao Measurements Intervals Turner Rate: 105 P: 10 WY: 164 QRS: 0 QRSD: 102 T: 259 QT: 308 QTc: 408 Interpretive Statements SINUS TACHYCARDIA LATE PRECORDIAL R/S TRANSITION NONSPECIFIC T ABNORMALITIES, LATERAL LEADS Compared to ECG 10/03/2019 21:59:07 Ventricular premature complex(es) no longer present Myocardial infarct finding no longer present Possible ischemia no longer present T-wave abnormality still present Electronically Signed On 10-05-2019 10:59:16 EDT by Aldair [facility], [facility], [facility] Incoming Cardiology Results From [facility] - 10/05/2019 10:11 AM EDT [facility] Test Date: 2019-10-03 Pat Name: Charlie Nguyen Department: [facility] Room: 232 Gender: F Clinical Laboratory Manager: ? : 1955 Requested By: NICA SAL Order Number: [id number] Reading MD: Danny Lamb Measurements Intervals Turner Rate: 114 P: 10 WY: 168 QRS: -4 QRSD: 106 T: 202 QT: 316 QTc: 436 Interpretive Statements SINUS TACHYCARDIA MULTIFORM VENTRICULAR PREMATURE COMPLEXES CONSIDER ANTEROSEPTAL INFARCT ABNORMAL T, CONSIDER ISCHEMIA, LATERAL LEADS BASELINE WANDER IN LEAD(S) V4 Electronically Signed On 10-05-2019 10:10:38 EDT by Danny Lamb [facility], [facility] Test Date: 2019-10-03 Pat Name: Charlie Nguyen Department: [facility] Room: 232 Gender: F Clinical Laboratory Manager: ? : 1955 Requested By: NICA SAL Order Number: [id number] Reading MD: Danny Lamb Measurements Intervals Turner Rate: 114 P: 10 WY: 168 QRS: -4 QRSD: 106 T: 202 QT: 316 QTc: 436 Interpretive Statements SINUS TACHYCARDIA MULTIFORM VENTRICULAR PREMATURE COMPLEXES CONSIDER ANTEROSEPTAL INFARCT ABNORMAL T, CONSIDER ISCHEMIA, LATERAL LEADS BASELINE WANDER IN LEAD(S) V4 Electronically Signed On 10-05-2019 10:10:38 EDT by [facility], [place] EKG 12 Lead - Chest Painon 0 10-05-2019 [place], [facility] Incoming Cardiology Results From [facility] - 10/05/2019 9:42 AM EDT [facility] Test Date: 2019-10-03 Pat Name: Charlie Hicksell Department: 01 Room: 232 Gender: F Clinical Laboratory Manager: : 1955 Requested By: LULI MORRIS Order Number: [id number] Reading : Danny Lamb Measurements Intervals Turner Rate: 79 P: 11 WY: 188 QRS: -22 QRSD: 108 T: 6 QT: 366 QTc: 420 Interpretive Statements SINUS RHYTHM LEFT VENTRICULAR HYPERTROPHY BASELINE WANDER IN LEAD(S) V4 CONSIDER PRIOR AWMI Electronically Signed On 10-05-2019 9:41:32 EDT by [facility], JAIDA [facility] Test Date: 2019-10-03 Pat Name: Charlie Patrick Department: Room: 232 Gender: F Clinical Laboratory Manager: : 1955 Requested By: LULI MORRIS Order Number: [id number] Reading ANTONIO Miranda Intervals Turner Rate: 79 P: 11 WY: 188 QRS: -22 QRSD: 108 T: 6 QT: 366 QTc: 420 Interpretive Statements SINUS RHYTHM LEFT VENTRICULAR HYPERTROPHY BASELINE WANDER IN LEAD(S) V4 CONSIDER PRIOR AWMI Electronically Signed On 10-05-2019 9:41:32 EDT by [facility], [place] Gram Stainon 10-05-2019 INR Coag (Bld) [Relative time] Many polymorphonuclear cells/lpf. Rare epithelial cells/lpf. Many gram positive cocci in pairs and chains. Moderate gram positive bacilli. Few gram negative bacilli. [place] Test Performed by [facility], [address] [place] [address] Specimen Source Comment:Sputum [place] Magnesiumon 10-05-2019 Magnesium [Mass/Vol] 1.7 mg/dL 1.6 - 2 .3 mg/dL [place] Manual Differentialon 2019 Absolute Baso # 0.0 10*3/uL 0 - 0.2 10*3/uL [place] Absolute Eos # 0.1 10*3/uL 0 - 0.5 10*3/uL [place] Absolute Lymph # 0.9 10*3/uL Low 1.1 - 4.5 10*3/uL [place] Absolute [place] # 0.9 10*3/uL 0.2 - 1.1 10*3/uL [place] Absolute Neut # 9.2 10*3/uL High 2.2 - 8.2 10*3/uL [place] Anisocytosis Ql (Bld) Slight [place] Bands 0 % 0 - 3 % [place] Basophils 0 % 0 - 2 % [place] Eosinophils 1 % 1 - 6 % [place] Interpretation and review of laboratory results Abnormal [place] Lymphocytes 8 % Low 20 - 40 % [place] Monocytes 8 % 2 - 10 % [place] RBC morphology finding Nom (Bld) ABNORMAL [place] Seg Neutrophils 83 % High 40 - 80 % [place] TOTAL CELLS COUNTED 100 [place] Test Performed by [facility], [address], [place], [place] [address] [place] Otheron 10-05-2019 Test Performed by [facility], [address], [place], [place] [address] [place] POCT Arterialon 10-05-2019 Base Excess, Arterial 5.7 mmol/L High -3 - 3 mmol/L [place] HCO3, Arterial 29.9 mmol/L High 21 - 25 mmol/L [place] Interpretation and review of laboratory results Abnormal [place] Oxygen saturation in Blood 93.4 % Low 95 - 100 % [place] pCO2, Arterial 41.4 mm[Hg] 35 - 45 mm[Hg] [place] pH, Arterial 7.468 High [place] pO2, Arterial 64.5 mm[Hg] Low 80 - 100 mm[Hg] [place] Sodium [Moles/Vol] 50 mmol/L [place] Comment on above: Performed by CLIA ID : [id number] [place], [place] TCO2, Arterial 31.2 mmol/L High 23 - 27 mmol/L [place] Test Performed by [facility], [address] [place] [address] [address], [place], [place] [address] [place] Phosphoruson 10-05-2019 Phosphate [Mass/Vol] 2.5 mg/dL 2.5 - 4 .5 mg/dL [place] XR CHEST PORTABLEon 10-05-19 20 [place], [facility] Incoming Radiology Results From [facility] - 10/05/2019 6:13 AM EDT Patient Name: CHARLIE NGUYEN ---Diagnostic Radiology--- Exam Date/Time 10/05/2019 05:16:10 EDT Exam CR Chest Portable Ordering Physician BENJAMIN SAL ALEXANDER Accession Number [id number] CPT4 Codes 35263 () Reason For Exam respiratory failure Report [...] ALFRED Transcribed Date and Time: 10/05/2019 6:12 [place] Patient Name: CHARLIE NGUYEN ---Diagnostic Radiology--- Exam Date/Time 10/05/2019 05:16:10 EDT Exam CR Chest Portable Ordering Physician BENJAMIN SAL ALEXANDER Accession Number [id number] CPT4 Codes 61601 () Reason For Exam respiratory failure Report [...] ALFRED Transcribed Date and Time: 10/05/2019 6:12 [place] Add On Lab Teston 10-04-2019 Sodium [Moles/Vol] Accepted [place] Comment on above: Specimen available & acceptable for analysis. Test Performed by [facility], [address] [place], [place], [place] [address] [place] [address] Basic Metabolic Panelon 05 Anion gap [Moles/Vol] 5 mmol/L [place] Calcium [Mass/Vol] 7.7 mg/dL Low 8.4 - 10. 4 mg/dL [place] Chloride [Moles/Vol] 97 mmol/L Low 98 - 10 7 mmol/L [place] CO2 [Moles/Vol] 34 mmol/L High 22 - 30 mmol/L [place] Creatinine [Mass/Vol] 0.61 mg/dL 0.52 - 1.25 mg/dL [place] EGFR IF NonAfrican [place] >60.0 >60 mL/min [place] Comment on above: Source- MDRD equatio n with creatinine calibration to IDMS(NKDEP) eGFR not recommended for drug dose adjustment GFR/1.73 sq M predicted among blacks MDRD (S/P/Bld) [Vol rate/Area] mL/min/{1.73_m2} >60 mL/min [place] Glucose [Mass/Vol] 104 mg/dL High 70 - 100 mg/dL [place] Interpretation and review of laboratory results Abnormal [place] Potassium [Moles/Vol] 3.4 mmol/L Low 3.5 - 5.1 mmol/L [place] Sodium [Moles/Vol] 135 mmol/L 135 - 145 mmol/L [place] Urea nitrogen [Mass/Vol] 16 mg/dL 7 - 20 mg/d L [place] Test Performed by [facility], [address] [place] [address] [place] Anion gap [Moles/Vol] 10 mmol/L [place] Calcium [Mass/Vol] 8.3 mg/dL Low 8.4 - 10. 4 mg/dL [place] Chloride [Moles/Vol] 95 mmol/L Low 98 - 10 7 mmol/L [place] CO2 [Moles/Vol] 34 mmol/L High 22 - 30 mmol/L [place] Creatinine [Mass/Vol] 0.68 mg/dL 0.52 - 1.25 mg/dL [place] EGFR IF NonAfrican [place] >60.0 >60 mL/min [place] Comment on above: Source- MDRD equatio n with creatinine calibration to IDMS(NKDEP) eGFR not recommended for drug dose adjustment GFR/1.73 sq M predicted among blacks MDRD (S/P/Bld) [Vol rate/Area] mL/min/{1.73_m2} >60 mL/min [place] Glucose [Mass/Vol] 108 mg/dL High 70 - 100 mg/dL [place] Interpretation and review of laboratory results Abnormal [place] Potassium [Moles/Vol] 3.6 mmol/L 3.5 - 5.1 mmol/L [place] Sodium [Moles/Vol] 138 mmol/L 135 - 145 mmol/L [place] Urea nitrogen [Mass/Vol] 17 mg/dL 7 - 20 mg/d L [place] Test [facility], [address] [place], [place], [place] [address] [place] Basic Metabolic Panel w/ Ref balaji to MGon 10-04-2019 Anion gap [Moles/Vol] 6 mmol/L [place] Calcium [Mass/Vol] 6.7 mg/dL Low 8.4 - 10. 4 mg/dL [place] Chloride [Moles/Vol] 100 mmol/L 98 - 10 7 mmol/L [place] CO2 [Moles/Vol] 31 mmol/L High 22 - 30 mmol/L [place] Creatinine [Mass/Vol] 0.58 mg/dL 0.52 - 1.25 mg/dL [place] EGFR IF NonAfrican Iraqi >60.0 >60 mL/min [place] Comment on above: Source- MDRD equatio n with creatinine calibration to IDMS(NKDEP) eGFR not recommended for drug dose adjustment GFR/1.73 sq M predicted among blacks MDRD (S/P/Bld) [Vol rate/Area] mL/min/{1.73_m2} >60 mL/min [place] Glucose [Mass/Vol] 116 mg/dL High 70 - 100 mg/dL [place] Interpretation and review of laboratory results Abnormal [place] Potassium [Moles/Vol] 3.3 mmol/L Low 3.5 - 5.1 mmol/L [place] Sodium [Moles/Vol] 137 mmol/L 135 - 145 mmol/L [place] Urea nitrogen [Mass/Vol] 18 mg/dL 7 - 20 mg/d L [place] CBC auto differentialon 05-0 Absolute Baso # 0.1 10*3/uL 0 - 0.2 10*3/uL [place] Absolute Neut # 11.6 10*3/uL High 1.8 - 7 10*3/uL [place] Basophils/100 WBC (Bld) 0.4 % 0 - 2 % [place] Eosinophils (Bld) [#/Vol] 0.0 10*3/uL 0 - 0.5 10*3/uL [place] Eosinophils/100 WBC (Bld) 0.0 % Low 1 - 6 % [place] Erythrocyte distribution width (RBC) [Ratio] 15.5 % High 11.5 - 14.5 % [place] Granulocytes/100 WBC (Bld) 86.9 % High 40 - 80 % [place] Hematocrit (Bld) [Volume fraction] 37.4 % 35 - 47 % [place] Hemoglobin (Bld) [Mass/Vol] 12.2 g/dL 11.7 - 16 g/dL [place] Interpretation and review of laboratory results Abnormal [place] Lymphocytes (Bld) [#/Vol] 0.8 10*3/uL Low 1 - 4.3 10*3/uL [place] Lymphocytes/100 WBC (Bld) 6.2 % Low 20 - 40 % [place] MCH (RBC) [Entitic mass] 31.7 pg 26 - 34 pg [place] MCHC (RBC) [Mass/Vol] 32.6 % 32 - 36 % [place] MCV (RBC) [Entitic vol] 97.1 fL 79 - 98 fL [place] Monocytes (Bld) [#/Vol] 0.9 10*3/uL High 0 - 0.8 10*3/uL [place] Monocytes/100 WBC (Bld) 6.5 % 2 - 10 % [place] Platelet mean volume (Bld) [Entitic vol] 9.0 fL 7.4 - 10.4 fL [place] Platelets (Bld) [#/Vol] 131 10*3/uL Low 140 - 440 10*3/uL [place] RBC (Bld) [#/Vol] 3.85 10*6/uL 3.8 - 5.2 10*6/uL [place] WBC (Bld) [#/Vol] 13.3 10*3/uL High 3.6 - 10.7 10*3/uL [place] Test Performed by [facility], [address] [place], [place] [address] [place] [address] COVID-19on 10-04-2019 SARS-CoV-2 Not Detected Expected Result: Not Detected _ Real-time, RT-PCR performed on the [employer] System by the [facility] Microbiology Service. Negative results do not preclude SARS-CoV-2 infection and should not be used as the sole basis for treatment or other patient management decisions. This assay was developed by [email or web address] and [employer] and distributed under an Emergency Use Authorization (EUA) granted by the FDA for the qualitative detection of SARS-CoV-2 nucleic acid. [place] Test Performed by [facility], [address] [place] [address] [place] Magnesiumon 10-04-2019 Magnesium [Mass/Vol] 1.6 mg/dL 1.6 - 2 .3 mg/dL [place] Otheron 10-04-2019 Test Performed by [facility], [address] [place], [place] [address] [place] POCT Arterialon 10-04-2019 Base Excess, Arterial 6.5 mmol/L High -3 - 3 mmol/L [place] HCO3, Arterial 31.5 mmol/L High 21 - 25 mmol/L [place] Interpretation and review of laboratory results Abnormal [place] Oxygen saturation in Blood 94.1 % Low 95 - 100 % [place] pCO2, Arterial 45.4 mm[Hg] High 35 - 45 mm[Hg] [facility], [place] pH, Arterial 7.448 [facility], [place] pO2, Arterial 69.1 mm[Hg] Low 80 - 100 mm[Hg] [facility], [place] Sodium [Moles/Vol] 60 mmol/L [facility], [place] Comment on above: Performed by CLIA ID : [id number] [place], [place] TCO2, Arterial 32.9 mmol/L High 23 - 27 mmol/L [facility], [place] Test Performed by [facility], [address] [place], [place] [address] [place] Base Excess, Arterial 6.8 mmol/L High -3 - 3 mmol/L [facility], [place] HCO3, Arterial 31.7 mmol/L High 21 - 25 mmol/L [facility], [place] Interpretation and review of laboratory results Abnormal [place] Oxygen saturation in Blood 95.1 % 95 - 100 % [place] pCO2, Arterial 45.0 mm[Hg] 35 - 45 mm[Hg] [facility], [place] pH, Arterial 7.456 High [place] pO2, Arterial 73.2 mm[Hg] Low 80 - 100 mm[Hg] [place] Sodium [Moles/Vol] 60 mmol/L [place] Comment on above: Performed by CLIA ID : [id number] [place], [place] TCO2, Arterial 33 mmol/L High 23 - 27 mmol/L [place] Test Performed by [facility], [address] [place], [place] [address] [place] Phosphoruson 10-04-2019 Phosphate [Mass/Vol] 3.0 mg/dL 2.5 - 4 .5 mg/dL [place] Procalcitoninon 10-04-2019 Interpretation and review of laboratory results Abnormal [place] Procalcitonin 0.6 ng/mL Abnormal <0.10 [place] Sodium [Moles/Vol] See Below [place] Comment on above: PCT <0.50 = Low risk of severe sepsis and/or septic shock. PCT >2.00 = High risk of severe sepsis and/or septic shock. Test Performed by [facility], [address] [place] [address] [place] ACETAMINOPHEN LEVELon 2019 Acetaminophen [Mass/Vol] <10.0 10 - 30 ug/mL [place] Acetaminophen Levelon 2019 Acetaminophen [Mass/Vol] <10.0 10 - 30 ug/mL [place] Test Performed by [facility], [address] [place], [place], [place] [address] [place] Basic Metabolic Panelon Anion gap [Moles/Vol] 9 mmol/L [place] Calcium [Mass/Vol] 7.7 mg/dL Low 8.4 - 10. 4 mg/dL [place] Chloride [Moles/Vol] 92 mmol/L Low 98 - 10 7 mmol/L [place] CO2 [Moles/Vol] 34 mmol/L High 22 - 30 mmol/L [place] Creatinine [Mass/Vol] 0.53 mg/dL 0.52 - 1.25 mg/dL [place] EGFR IF NonAfrican [place] >60.0 >60 mL/min [place] Comment on above: Source- MDRD equatio n with creatinine calibration to IDMS(NKDEP) eGFR not recommended for drug dose adjustment GFR/1.73 sq M predicted among blacks MDRD (S/P/Bld) [Vol rate/Area] mL/min/{1.73_m2} >60 mL/min [place] Glucose [Mass/Vol] 198 mg/dL High 70 - 100 mg/dL [place] Interpretation and review of laboratory results Abnormal [place] Potassium [Moles/Vol] 2.9 mmol/L Low 3.5 - 5.1 mmol/L [place] Sodium [Moles/Vol] 135 mmol/L 135 - 145 mmol/L [place] Urea nitrogen [Mass/Vol] 23 mg/dL High 7 - 20 mg/d L [place] Test Performed by [facility], [address], [place], [place] [address] [place] Anion gap [Moles/Vol] 10 mmol/L [place] Calcium [Mass/Vol] 8.4 mg/dL 8.4 - 10. 4 mg/dL [place] Chloride [Moles/Vol] 97 mmol/L Low 98 - 10 7 mmol/L [place] CO2 [Moles/Vol] 32 mmol/L High 22 - 30 mmol/L [place] Creatinine [Mass/Vol] 0.73 mg/dL 0.52 - 1.25 mg/dL [place] EGFR IF NonAfrican [place] >60.0 >60 mL/min [place] Comment on above: Source- MDRD equatio n with creatinine calibration to IDMS(NKDEP) eGFR not recommended for drug dose adjustment GFR/1.73 sq M predicted among blacks MDRD (S/P/Bld) [Vol rate/Area] mL/min/{1.73_m2} >60 mL/min [place] Glucose [Mass/Vol] 103 mg/dL High 70 - 100 mg/dL [place] Interpretation and review of laboratory results Abnormal [place] Potassium [Moles/Vol] 4.0 mmol/L 3.5 - 5.1 mmol/L [place] Sodium [Moles/Vol] 139 mmol/L 135 - 145 mmol/L [place] Urea nitrogen [Mass/Vol] 34 mg/dL High 7 - 20 mg/d L [place] Test Performed by [facility], [address], [place], [place] [address] [place] Brain Natriuretic Peptideon 10-03-2019 Interpretation and review of laboratory results Abnormal [place] Natriuretic peptide B (Bld) [Mass/Vol] 222 pg/mL High 0 - 125 pg/mL [place] CKon 10-03-2019 Total CK 60 U/L 30 - 170 U/L [place] CT Cervical Spine WO Contras ton 10-03-2019 [place], [facility] Incoming Radiology Results From [facility] [facility] 11:09 AM EDT Patient Name: CHARLIE NGUYEN ---CT--- Exam Date/Time 10/03/2019 10:54:[address] Spine Cervical w/o Contrast Ordering Physician DO MORRIS DAVID J Accession Number [id number] CPT4 Codes 51809 () Reason For Exam Suspected overdose Report [...] KEVIN Transcribed Date and Time: 10/03/2019 11:09 [place] Patient Name: CHARLIE NGUYEN ---CT--- Exam Date/Time 10/03/2019 10:54:[address] Spine Cervical w/o Contrast Ordering Physician DO MORRIS DAVID J Accession Number [id number] CPT4 Codes 86536 () Reason For Exam Suspected overdose Report [...] KEVIN Transcribed Date and Time: 10/03/2019 11:09 [place] CT Head WO Contraston 2019 Patient Name: CHARLIE NGUYEN ---CT--- Exam Date/Time 10/03/2019 10:54:[address] Head or Brain w/o Contrast Ordering Physician DO MORRIS DAVID J Accession Number [id number] CPT4 Codes 35340 () Reason For Exam AMS, suspected overdose [...] KEVIN Transcribed Date and Time: 10/03/2019 11:01 [place], [place] [facility] Incoming Radiology Results From [facility] - 10/03/2019 11:01 AM EDT Patient Name: CHARLIE NGUYEN ---CT--- Exam Date/Time 10/03/2019 10:54:[address] Head or Brain w/o Contrast Ordering Physician DO MORRIS DAVID J Accession Number [id number] CPT4 Codes 74211 () Reason For Exam AMS, suspected overdose [...] KEVIN Transcribed Date and Time: 10/03/2019 11:01 [place] Comprehensive Metabolic Pane rafiq 10-03-2019 Albumin [Mass/Vol] 3.9 g/dL 3.5 - 5 g/dL [place] ALP [Catalytic activity/Vol] 132 U/L High 38 - 126 U/L [place] ALT [Catalytic activity/Vol] 20 U/L 0 - 34 U/L [place] Comment on above: The ALT test is perf ormed by an updated assay method. Please note that the reference intervals have been changed and are now sex specific. Anion gap [Moles/Vol] 10 mmol/L [place] AST [Catalytic activity/Vol] 27 U/L 15 - 46 U/L [place] Bilirubin Ql (U) 0.6 mg/dL 0.2 - 1.3 mg/dL [place] Calcium [Mass/Vol] 8.5 mg/dL 8.4 - 10. 4 mg/dL [place] Chloride [Moles/Vol] 96 mmol/L Low 98 - 10 7 mmol/L [place] CO2 [Moles/Vol] 33 mmol/L High 22 - 30 mmol/L [place] Creatinine [Mass/Vol] 0.87 mg/dL 0.52 - 1.25 mg/dL [place] EGFR IF NonAfrican [place] >60.0 >60 mL/min [place] Comment on above: Source- MDRD equatio n with creatinine calibration to IDMS(NKDEP) eGFR not recommended for drug dose adjustment GFR/1.73 sq M predicted among blacks MDRD (S/P/Bld) [Vol rate/Area] mL/min/{1.73_m2} >60 mL/min [place] Glucose [Mass/Vol] 127 mg/dL High 70 - 100 mg/dL [place] Potassium [Moles/Vol] 3.7 mmol/L 3.5 - 5.1 mmol/L [place] Protein [Mass/Vol] 7.5 g/dL 6.3 - 8.2 g/dL [place] Sodium [Moles/Vol] 139 mmol/L 135 - 145 mmol/L [place] Urea nitrogen [Mass/Vol] 37 mg/dL High 7 - 20 mg/d L [place] Ethanolon 10-03-2019 Ethanol Lvl <0.010 0 - 0.01 g/dL [place] Comment on above: NOTE: This result is for medical treatment only. Analysis performed using non-forensic procedures. Hemogram (CBC) w/Auto Diffon 10-03-2019 Absolute Baso # 0.1 10*3/uL 0 - 0.2 10*3/uL [place] Absolute Neut # 10.0 10*3/uL High 1.8 - 7 10*3/uL [place] Basophils/100 WBC (Bld) 0.9 % 0 - 2 % [place] Eosinophils (Bld) [#/Vol] 0.0 10*3/uL 0 - 0.5 10*3/uL [place] Eosinophils/100 WBC (Bld) 0.1 % Low 1 - 6 % [place] Erythrocyte distribution width (RBC) [Ratio] 15.2 % High 11.5 - 14.5 % [place] Granulocytes/100 WBC (Bld) 82.5 % High 40 - 80 % [place] Hematocrit (Bld) [Volume fraction] 43.1 % 35 - 47 % [place] Hemoglobin (Bld) [Mass/Vol] 14.1 g/dL 11.7 - 16 g/dL [place] Interpretation and review of laboratory results Abnormal [place] Lymphocytes (Bld) [#/Vol] 1.2 10*3/uL 1 - 4.3 10*3/uL [place] Lymphocytes/100 WBC (Bld) 9.7 % Low 20 - 40 % [place] MCH (RBC) [Entitic mass] 31.9 pg 26 - 34 pg [place] MCHC (RBC) [Mass/Vol] 32.8 % 32 - 36 % [place] MCV (RBC) [Entitic vol] 97.2 fL 79 - 98 fL [place] Monocytes (Bld) [#/Vol] 0.8 10*3/uL 0 - 0.8 10*3/uL [place] Monocytes/100 WBC (Bld) 6.8 % 2 - 10 % [place] Platelet mean volume (Bld) [Entitic vol] 9.0 fL 7.4 - 10.4 fL [place] Platelets (Bld) [#/Vol] 187 10*3/uL 140 - 440 10*3/uL [place] RBC (Bld) [#/Vol] 4.43 10*6/uL 3.8 - 5.2 10*6/uL [place] WBC (Bld) [#/Vol] 12.1 10*3/uL High 3.6 - 10.7 10*3/uL [place] Test Performed by [facility], [address] Intubationon 10-03-2019 Luli Morris DO 10/03/2019 10:49 [...] passed the ET tube times one attempt. [place] Lactic Acid, Plasmaon 2019 Lactate [Moles/Vol] 1.3 mmol/L 0.7 - 2 mmol/L [place] Lipaseon 10-03-2019 Lipase [Catalytic activity/Vol] 67 U/L 23 - 300 U/L [place] Magnesiumon 10-03-2019 Magnesium [Mass/Vol] 1.5 mg/dL Low 1.6 - 2 .3 mg/dL [place] Otheron 10-03-2019 Test Performed by [facility], [address], [place], [place] [address] [facility] [place] Test Performed by [facility], [address], [place], [place] [address] [facility] [place] Interpretation and review of laboratory results Abnormal [facility] [place] Test Performed by [facility], [address] [place], [place], [place] [address] [facility] [place] POCT Arterialon 10-03-2019 Base Excess, Arterial 9.2 mmol/L High -3 - 3 mmol/L [facility] [place] HCO3, Arterial 33.7 mmol/L High 21 - 25 mmol/L [facility] [place] Interpretation and review of laboratory results Abnormal [facility] [place] Oxygen saturation in Blood [...] on above: Performed by CLIA ID : [id number] [place], [place] TCO2, Arterial 35.1 mmol/L High 23 - 27 mmol/L [facility] [place] Test Performed by [facility], [address] [place], [place], [place] [address] [facility] [place] Base Excess, Arterial 8.6 mmol/L High -3 - 3 mmol/L [facility] [place] HCO3, Arterial 34.4 mmol/L High 21 - 25 mmol/L [facility] [place] Interpretation and review of laboratory results Abnormal [facility] [place] Oxygen saturation in Blood [...] on above: Performed by CLIA ID : [id number] [place], [place] TCO2, Arterial 35.9 mmol/L High 23 - 27 mmol/L [place] Test Performed by [facility], [address] [place], [place] [address] [place] POCT Glucoseon 10-03-2019 Glucose [Mass/Vol] 125 mg/dL High 70 - 100 mg/dL [place] Comment on above: Test performed by ucose meter. Results may be 10%-15% lower than serum/plasma values. (CLIA ID [id number]) Interpretation and review of laboratory results Abnormal [place] Test Performed by [facility], [address] [place], [place] [id number] [place] [address] SALICYLATE LEVELon 0 Salicylate Lvl 1.1 mg/dL 0 - 20 mg/dL [place] Test Performed by [facility], [address] [place], [place] [id number] [place] [address] Troponin x1on 10-03-2019 Troponin I.cardiac [Mass/Vol] ng/mL 0 - 0.034 ng/mL [place] Comment on above: . Urinalysison 10-03-2019 Appearance (U) Clear Clear NA [place] Comment on above: . Bacteria, UA Many Abnormal Negative /[HPF] [place] Comment on above: . Bilirubin Urine Negative Negative mg/dL [place] Comment on above: . Color (U) Yellow Lt. Yellow NA [place] Comment on above: . Glucose, Ur Normal Normal (<70) mg/dL [place] Comment on above: . Interpretation and review of laboratory results Abnormal [place] Ketones Ql (U) Negative Negative mg/dL [place] Comment on above: . LEUKOCYTES, UA 250 Abnormal Negative Simon/uL [place] Comment on above: . Mucous Threads Few Negative /[LPF] [place] Comment on above: . Nitrite, Urine Negative Negative NA [place] Comment on above: . Occult Blood,Urine Negative Negative mg/dL [place] Comment on above: . pH (U) 5.5 [pH] [place] Comment on above: . Protein (U) [Mass/Vol] 10 mg/dL Abnormal Negative [place] Comment on above: . RBC (U) [#/Vol] 0-2 0 - 2 /[HPF] [place] Comment on above: . Specific [place], Urine 1.024 M [place], [place] Comment on above: . Squam Epithel, UA 0-2 3 - 5 /[HPF] [place] Comment on above: . Urobilinogen, Urine Normal Normal ( 0-1) mg/dL [place] Comment on above: . WBC, UA 26-50 Abnormal 0 - 5 /[HPF] [place] Comment on above: . Test Performed by [facility], [address] [place], [place], [place] [address] [place] Urine Drug Screenon 10-03-19 20 Amphetamines, urine Negative [place] Barbiturates, Ur Negative [place] Benzodiazepine Ur Qual Positive [place] Cocaine Metabolites, Ur Negative [place] Methadone, Urine Negative [place] Opiates, Urine Negative [place] Oxycodone Screen, Ur Negative [place] PCP, Urine Negative [place] Comment on above: The expected value [...] confirmation under separate order. Test Performed by [facility], [address] [place], [place] [address] [facility], [place] XR CHEST PORTABLEon 10-03-19 Patient Name: CHARLIE NGUYEN ---Diagnostic Radiology--- Exam Date/Time 10/03/2019 08:25:00 EDT Exam CR Chest Portable Ordering Physician DO MORRIS DAVID J Accession Number [id number] CPT4 Codes 97430 () Reason For Exam Altered mental status, [...] R Transcribed Date and Time: 10/03/2019 8:44 [place] [facility] Incoming Radiology Results From [facility] - 10/03/2019 8:44 AM EDT Patient Name: CHARLIE NGUYEN ---Diagnostic Radiology--- Exam Date/Time 10/03/2019 08:25:00 EDT Exam CR Chest Portable Ordering Physician DO MORRIS DAVID J Accession Number [id number] CPT4 Codes 91250 () Reason For Exam Altered mental status, [...] R Transcribed Date and Time: 10/03/2019 8:44 [place] URINE CULTUREon 10-30-2018 Bacteria identified Cx [...] LEVOFLOXACIN <2 S MEROPENEM <1 S Normal [facility] Comment on above: Performed By: #### M [id number] #### [facility] [address] [place] [address] UA COMPLETEon 10-28-2018 UA LK ESTERASE 500 Normal NEGATIVE [facility] Comment on above: Performed By: #### L [id number] #### [facility] [address] [place] [address] UA NITRITE Positive Normal NEGATIVE [facility] Comment on above: Performed By: #### L [id number] #### [facility] [address] [place] [address] UA WBC 529 WBC/HPF High 0-5 [facility] Comment on above: Performed By: #### L [id number] #### [facility] [address] [id number] Color Nom (U) Yellow Normal [facility] Comment on above: Performed By: #### L [id number] #### [facility] [address] [place], [place] [id number] Glucose mass conc (U) Negative Normal NORMAL [facility] Comment on above: Performed By: #### L [id number] #### [facility] [address] [place] [address] Mucus Ql (Urine sed) TRACE Normal NEGATIVE [facility] Comment on above: Performed By: #### L [id number] #### [facility] [address] [place] [address] SQUAMOUS EPIS 7 EPI/HPF High 0-5 [facility] Comment on above: Performed By: #### L 600. #### [facility] [address] [place], [place] [id number] UA APPEARANCE Cloudy Normal CLEAR [facility] Comment on above: Performed By: #### L 600. #### [facility] [address] [place], [place] [phone] UA BACTERIA 1+ /HPF Normal NONE [facility] Comment on above: Performed By: #### L [id number] #### [facility] [address] [place] [address] UA BILIRUBIN Negative Normal NEGATIVE [facility] Comment on above: Performed By: #### L 600. #### [facility] [address] [place] [address] UA BLOOD SMALL Normal NEGATIVE [facility] Comment on above: Performed By: #### L 600. #### [facility] [address] [place], [place] [phone] UA KETONE Negative Normal NEGATIVE [facility] Comment on above: Performed By: #### L [id number] #### [facility] [address] [place], [place] [phone] UA PH 6.0 Normal 5-6 [facility] Comment on above: Performed By: #### L [id number] #### [facility] [address] [place] [address] UA PROTEIN Negative Normal NEGATIVE [facility] Comment on above: Performed By: #### L [id number] #### [facility] [address] [place] [address] UA RBC 3 RBC/HPF Normal 0-3 [facility] Comment on above: Performed By: #### L [id number] #### [facility] [address] [place] [address] UA SPEC GRAV 1.015 Normal 1.005-1.030 [facility] Comment on above: Performed By: #### L [id number] #### [facility] [address] [place], [place] [phone] UA UROBILINOGEN Negative Normal NORMAL [facility] Comment on above: Performed By: #### L [id number] #### [facility] [address] [place] [address] WBC CLUMPS MANY Normal [facility] Comment on above: Performed By: #### L [id number] #### [facility] [address] [place] [address] Vital Signs Date Time Vital Sign Value Performing Clinician Facility 11-17-2022 15:49-0400 Diastolic blood pressure 80 mm[Hg] Marc Goodman DO Work Phone: [facility] 11-17-2022 15:49-0400 Heart rate 77 /min Marc Goodman DO Work Phone: [facility] 11-17-2022 15:49-0400 Respiratory rate 20 /min Marc Goodman DO Work Phone: [facility] 11-17-2022 15:49-0400 SaO2% (BldA) [Mass fraction] 91 % Marc Goodman DO Work Phone: [facility] 11-17-2022 15:49-0400 Systolic blood pressure 114 mm[Hg] Marc Goodman DO Work Phone: [facility] 11-17-2022 08:35-0400 Body mass index (BMI) [Ratio] 34.87 kg/m2 Marc Goodman DO Work Phone: [facility] 11-17-2022 08:35-0400 Body temperature 96.3 [degF] Marc Goodman DO Work Phone: [facility] 11-17-2022 08:35-0400 Body weight 113.4 kg Marc Goodman DO Work Phone: [facility] 01-15-2021 13:32-0400 Diastolic blood pressure 65 mm[Hg] Nehal Madden DO Work Phone: [facility] Work Phone: 01-15-2021 13:32-0400 Heart rate 78 /min Nehal Madden DO Work Phone: [employer] Work Phone: 01-15-2021 13:32-0400 SaO2% (BldA) [Mass fraction] 91 % Nehal Madden DO Work Phone: [facility] Work Phone: 01-15-2021 13:32-0400 Systolic blood pressure 103 mm[Hg] Nehal Chano DO Work Phone: [employer] Work Phone: 01-15-2021 11:46-0400 Body height 180.3 cm Nehal Chano DO Work Phone: [facility] Work Phone: 01-15-2021 11:46-0400 Body mass index (BMI) [Ratio] 32.08 kg/m2 Nehal Chano DO Work Phone: [facility] Work Phone: 01-15-2021 11:46-0400 Body temperature 99.39 [degF] Nehal Chano DO Work Phone: [facility] Work Phone: 01-15-2021 11:46-0400 Body weight 104.33 kg Nehal Chano DO Work Phone: [facility] Work Phone: 01-15-2021 11:46-0400 Respiratory rate 16 /min Nehal Madden DO Work Phone: [facility] Work Phone: 01-06-2021 02:54-0400 Diastolic blood pressure [...] 180.3 cm Erika Hudson MD Work Phone: [facility] Work Phone: 01-05-2021 19:10-0400 Body mass index (BMI) [Ratio] 32.08 kg/m2 Erika Hudson MD Work Phone: [facility] Work Phone: 01-05-2021 19:10-0400 Body temperature 100.51 [degF] Erika Hudson MD Work Phone: [facility] Work Phone: 01-05-2021 19:10-0400 Body weight 104.33 kg Erika Hudson MD Work Phone: [facility] Work Phone: 12-18-2020 23:25-0400 Diastolic blood pressure 66 mm[Hg] Jorge Mjeia MD Work Phone: [facility] Work Phone: 12-18-2020 23:25-0400 Heart rate 65 /min Jorge Mejia MD Work Phone: [facility] Work Phone: 12-18-2020 23:25-0400 Respiratory rate 16 /min Jorge Mejia MD Work Phone: [facility] Work Phone: 12-18-2020 23:25-0400 SaO2% (BldA) [Mass fraction] 91 % Jorge Mejia MD Work Phone: [facility] Work Phone: 12-18-2020 23:25-0400 Systolic blood pressure 100 mm[Hg] Jorge Mejia MD Work Phone: [facility] Work Phone: 12-18-2020 20:35-0400 Body height 180.3 cm Jorge Mejia MD Work Phone: [facility] Work Phone: 12-18-2020 20:35-0400 Body mass index (BMI) [Ratio] 32.08 kg/m2 Jorge Mejia MD Work Phone: [facility] Work Phone: 12-18-2020 20:35-0400 Body temperature 99.1 [degF] Jorge Mejia MD Work Phone: [facility] Work Phone: 12-18-2020 20:35-0400 Body weight 104.33 kg Jorge Mejia MD Work Phone: [facility] Work Phone: 02-03-2020 15:38-0400 Body Temperature 97.3 [degF] [facility] [place] 02-03-2020 15:38-0400 BP Diastolic 62 mm[Hg] [facility], [place] 02-03-2020 15:38-0400 BP Systolic 107 mm[Hg] [facility] 02-03-2020 15:38-0400 Pulse (Heart Rate) 59 /min [facility] 02-03-2020 15:38-0400 Pulse Oximetry 95 % [facility] 02-03-2020 15:38-0400 Respiratory Rate 16 /min [facility] 02-03-2020 05:59-0400 BMI (Body Mass Index) 33.64 kg/m2 [facility], [place] 02-03-2020 05:59-0400 Body weight 109.41 kg [facility] 01-30-2020 14:03-0400 Height 180.3 cm [facility] 11-04-2019 20:50-0400 Body Temperature 98.01 [degF] Sulaiman Ricks [facility], [place] 11-04-2019 20:50-0400 BP Diastolic 81 mm[Hg] [facility] [place] 11-04-2019 20:50-0400 BP Systolic 119 mm[Hg] Sulaiman Ricks [facility] , [place] 11-04-2019 20:50-0400 Pulse (Heart Rate) 91 /min Sulaiman Ricks [facility] 11-04-2019 20:50-0400 Pulse Oximetry 94 % [facility] [place] 11-04-2019 20:50-0400 Respiratory Rate 20 /min Sulaiman Valencia [facility], [place] 11-04-2019 13:50-0400 BMI (Body Mass Index) 41.84 kg/m2 Sulaiman Valencia [facility], [place] 11-04-2019 13:50-0400 Body weight 136.08 kg Sulaiman Ricks [facility] , [place] 11-04-2019 13:50-0400 Height 180.3 cm [facility] [place] 10-25-2019 08:08-0400 Body Temperature 98.01 [degF] Luli [facility], [place] 10-25-2019 08:08-0400 BP Diastolic 78 mm[Hg] Luli [facility] , [place] 10-25-2019 08:08-0400 BP Systolic 116 mm[Hg] [place] 10-25-2019 08:08-0400 Pulse (Heart Rate) 95 /min Luli [facility], [place] 10-25-2019 08:08-0400 Pulse Oximetry 93 % Luli [facility] , [place] 10-25-2019 08:08-0400 Respiratory Rate 18 /min Luli [facility], [place] 10-13-2019 05:24-0400 BMI (Body Mass Index) 39.87 kg/m2 Luli [facility], [place] 10-13-2019 05:24-0400 Body weight 122.47 kg L[place] 10-05-2019 07:32-0400 Height 175.3 cm [place] Encounters Encounter Date Encounter Type Care Provider Facility Start: 02-02-2025 End: 02-02-2025 Telephone encounter Moreno Oates MD Work Phone: [facility] Comment on above: Medication Request ( Rescue inhaler) Start: 01-13-2025 End: 01-13-2025 Refill Moreno Oates MD Work Phone: Family Practice Comment on above: Refill Request Start: 01-12-2025 End: 01-12-2025 Telephone encounter Moreno Oates MD Work Phone: Family Practice Comment on above: Outside Lab Results ([facility] ) Start: 01-09-2025 ambulatory Ender RICKS Faci lity:[facility] Start: 12-15-2024 End: 12-15-2024 Refill Moreno Oates MD Work Phone: Family Practice Comment on above: Refill Request Received Outside Med ical Records ([facility]- labs) Start: 12-09-2024 ambulatory Royer RICKS Facil ity:[facility] Start: 12-07-2024 End: 12-07-2024 ambulatory Moreno Oates MD Work Phone: Family Practice Comment on above: Headache Start: 11-18-2024 End: 11-18-2024 Refill Moreno Oates MD Work Phone: Family Practice Comment on above: Refill Request Start: 11-10-2024 End: 11-10-2024 Refill Moreno Oates MD Work Phone: Family Practice Comment on above: Refill Request Start: 11-09-2024 ambulatory Ender Burlesoni lity:[facility] Start: 10-17-2024 End: 10-20-2024 ambulatory MORENO OATES [facility] Start: 10-15-2024 ambulatory Ender Burlesoni lity:[facility] Start: 10-14-2024 End: 10-14-2024 Refill Moreno Oates MD Work Phone: Family Practice Comment on above: Refill Request Start: 09-16-2024 End: 09-16-2024 Refill Moreno Oates MD Work Phone: Family [facility] Comment on above: Refill Request Start: 09-09-2024 End: 09-09-2024 ambulatory Ender RICKS Facility:[facility] Start: 08-18-2024 End: 08-18-2024 Refill Moreno Oates MD Work Phone: Family [facility] Comment on above: Refill Request Start: 08-10-2024 End: 08-10-2024 ambulatory Ender Oates MD Work Phone: [facility] Work Phone: Start: 08-10-2024 End: 08-10-2024 Departed Referred Royer Reagan -[facility] [address] Start: 08-10-2024 End: 08-10-2024 ambulatory Royer RICKS Facility:[facility] Start: 07-22-2024 End: 07-22-2024 Refill Moreno Oates MD Work Phone: Family [facility] Comment on above: Refill Request Start: 07-18-2024 End: 07-18-2024 Telephone encounter Moreno Oates MD Work Phone: [facility] Comment on above: Received Outside Med ical Records ([facility] ([facility] Labs 07/12/2024) Start: 07-12-2024 ambulatory Ender RICKS Faci lity:[facility] Start: 07-12-2024 Registered Referred Ender Duke D -[facility] [address] Start: 07-04-2024 ambulatory Royer RICKS Facil ity:[facility] Start: 07-04-2024 Registered Referred [facility] [address] Start: 06-23-2024 End: 06-23-2024 Refill Moreno Oates MD Work Phone: [facility] Comment on above: Refill Request Start: 05-23-2024 End: 05-24-2024 Refill Moreno Oates MD Work Phone: Family Practice Comment on above: Refill Request Start: 05-11-2024 End: 05-11-2024 Departed Referred Ender Oates MD -[place] [facility] [address] Start: 05-11-2024 End: 05-11-2024 ambulatory Ender RICKS Facility:[facility] Start: 04-22-2024 End: 04-22-2024 Refill Moreno Oates MD Work Phone: [facility] Practice Comment on above: Refill Request Start: 04-21-2024 End: 04-22-2024 Refill Moreno Oates MD Work Phone: Family Practice Comment on above: Refill Request Start: 04-12-2024 End: 04-12-2024 Telephone encounter Moreno Oates MD Work Phone: Family Practice Comment on above: Received Outside Med ical Records ([facility] 04/11/2024) Start: 04-11-2024 End: 04-11-2024 ambulatory Ender RICKS Facility:[facility] Start: 03-31-2024 End: 03-31-2024 Refill Moreno Oates MD Work Phone: Family Practice Comment on above: Refill Request Start: 03-25-2024 End: 03-25-2024 Refill Moreno Oates MD Work Phone: Family Practice Comment on above: Refill Request Start: 03-24-2024 End: 03-24-2024 Refill Moreno Oates MD Work Phone: Family Practice Comment on above: Refill Request Start: 03-24-2024 End: 03-24-2024 ambulatory Ender RICKS Facility:[facility] Start: 03-17-2024 End: 03-17-2024 Telephone encounter Moreno Oates MD Work Phone: Family Practice Comment on above: Orders ([place]) Start: 03-10-2024 End: 03-10-2024 Telephone encounter Moreno Oates MD Work Phone: Family Practice Comment on above: Outside Labs Results ([facility]) Start: 03-10-2024 End: 03-10-2024 ambulatory Royer RICKS Facility:[facility] Start: 02-29-2024 End: 02-29-2024 Refill Moreno Oates MD Work Phone: Family Practice Comment on above: Opened In Error Start: 02-26-2024 End: 02-26-2024 Refill Moreno Oates MD Work Phone: Family Practice Comment on above: Refill Request Start: 02-09-2024 ambulatory Royer Merarymelissa RICKS Facil ity:[facility] Start: 01-27-2024 End: 01-28-2024 Refill Moreno [...] on above: Received Outside Med ical Records ([facility] 11/09/2023) Start: 10-27-2023 Refill Moreno peterson MD Work Phone: Family Practice Comment on above: Refill Request Start: 10-12-2023 Telephone encounter Moreno Oates MD Work Phone: Family Practice Comment on above: Outside Lab Results ([facility] 10/12/23) Start: 10-07-2023 Refill Moreno peterson MD Work Phone: Family Practice Comment on above: Refill Request Start: 09-25-2023 Refill Moreno peterson MD Work Phone: Family [facility] Comment on above: Refill Request Start: 09-11-2023 Telephone encounter Moreno Oates MD Work Phone: Family Practice Comment on above: Received Outside Med ical Records ([facility] Order to increase Zofran from 4 mg to 8 mg Q8 hr prn) Start: 08-11-2023 Telephone encounter Moreno Oates MD Work Phone: Family Practice Comment on above: Outside Labs Results ([facility]/ [facility]) Start: 08-10-2023 End: 08-10-2023 ambulatory [facility] Work Phone: Start: 08-10-2023 End: 08-10-2023 Departed Referred [facility] [place] [address] Start: 07-31-2023 Refill Moreno peterson MD Work Phone: Family [facility] Comment on above: Refill Request Start: 07-30-2023 Refill Moreno peterson MD Work Phone: [facility] Comment on above: Refill Request Start: 07-13-2023 End: 07-13-2023 Departed Referred [facility] [place] [address] Start: 06-08-2023 End: 06-08-2023 ambulatory [facility] Work Phone: Start: 06-08-2023 End: 06-08-2023 Departed Referred [facility] [place] [address] Start: 05-11-2023 Telephone encounter Moreno Oates MD Work Phone: [facility] Comment on above: Received Outside Med ical Records ([facility] ([facility]) Labs 05/11/2023) Start: 05-11-2023 End: 05-11-2023 Departed Referred [facility] [place] [address] Start: 04-29-2023 Telephone encounter Moreno Oates MD Work Phone: Family Practice Start: 04-13-2023 Telephone encounter Moreno Oates MD Work Phone: Family [facility] Comment on above: Received Outside Med ical Records ([facility] ([facility]) Labs 04/06/2023) Start: 04-13-2023 End: 04-13-2023 ambulatory [facility] Work Phone: Start: 04-13-2023 End: 04-13-2023 Departed Referred [facility] [place] [address] Start: 04-06-2023 Telephone encounter Moreno Oates MD Work Phone: Family [facility] Comment on above: Orders Start: 03-30-2023 Telephone encounter Moreno Oates MD Work Phone: Family [facility] Start: 03-09-2023 End: 03-09-2023 ambulatory [facility] Work Phone: Start: 03-09-2023 End: 03-09-2023 Departed Referred [facility] [place] [address] Start: 03-07-2023 End: 03-07-2023 [facility] [place] [facility] [address] Start: 02-13-2023 ambulatory Moreno peterson MD Work Phone: [facility] Comment on above: Nurse Triage Call Start: 02-12-2023 Telephone encounter Moreno Oates MD Work Phone: [facility] Comment on above: Received Outside Med ical Records (Lab results 02/09/23 [facility]) Start: 02-11-2023 Telephone encounter Moreno Oates MD Work Phone: [facility] Comment on above: Medication Request Start: 02-09-2023 End: 02-09-2023 ambulatory [facility] Work Phone: Start: 02-09-2023 End: 02-09-2023 Departed Referred [facility] [place] [address] Start: 02-09-2023 [facility] [place] [facility] [address] Start: 01-31-2023 Telephone encounter Moreno Oates MD Work Phone: Family Practice Start: 01-26-2023 Telephone encounter Moreno Oates MD Work Phone: Family Practice Comment on above: Received Outside Med ical Records ([facility] Lower extremity venous duplex 01/21/2023) Start: 01-21-2023 End: 01-22-2023 ambulatory KENJI DE LA TORREREY Marcos KENJI DO~[id number] [facility] Start: 01-13-2023 Refill Moreno peterson MD Work Phone: Family Practice Comment on above: Refill Request Start: 01-12-2023 Telephone encounter Moreno Oates MD Work Phone: Family Practice Comment on above: Received Outside Med ical Records (Lab results from [facility]/ [facility] Lab) Start: 01-12-2023 End: 01-12-2023 ambulatory [facility] Work Phone: Start: 01-12-2023 End: 01-12-2023 Departed Referred [facility] [place] [address] Start: 01-01-2023 Refill Moreno peterson MD Work Phone: Family Practice Comment on above: Refill Request Start: 12-31-2022 Telephone encounter Moreno Oates MD Work Phone: Family Practice Comment on above: Received Outside Med ical Records ([facility] ([facility]) Labs 12/30/2022) Start: 12-30-2022 End: 12-30-2022 Departed [facility] [place] [facility] [address] Start: 12-30-2022 Registered Referred [facility] [place] [facility] [address] Start: 12-29-2022 ambulatory Moreno peterson MD Work Phone: Family Practice Comment on above: Nurse Triage Call Start: 12-16-2022 Telephone encounter Moreno Oates MD Work Phone: Family Practice Comment on above: Received Outside Med ical Records ([facility] Vascular Surgery 12/15/22) Start: 12-09-2022 End: 12-09-2022 ambulatory [facility] Work Phone: Start: 12-09-2022 End: 12-09-2022 Departed Referred [facility] [address] Start: 12-01-2022 Telephone encounter Moreno Oates MD Work Phone: Family Practice Comment on above: Orders Start: 11-27-2022 Registered Referred [facility] - [address] Start: 11-21-2022 Telephone encounter Moreno Oates MD Work Phone: Family Practice Comment on above: Orders ([facility] tient having extreme pain in left leg asking for an increase in percocet to every 4 hours.) Start: 11-17-2022 End: 11-17-2022 Emergency department patient visit Marc Goodman DO Work Phone: [facility] ED Comment on above: Left leg swelling (P rimary Dx) Start: 11-12-2022 ambulatory Moreno peterson MD Work Phone: Internal Medicine [place] Start: 11-10-2022 End: 11-10-2022 ambulatory [facility] Work Phone: Start: 11-10-2022 End: 11-10-2022 Departed Referred [facility] - [address] Start: 11-06-2022 Telephone encounter Moreno Oates MD Work Phone: Family Practice Comment on above: Received Outside Med ical Records ([facility] portable x-ray service ([facility]) Chest x-ray 11/04/2022) Start: 10-10-2022 Telephone encounter Moreno Oates MD Work Phone: Family Practice Comment on above: Orders Start: 10-06-2022 Telephone encounter Moreno Oates MD Work Phone: Family Practice Comment on above: Received Outside Med ical Records ([facility] ([facility]) Labs) Start: 10-06-2022 End: 10-06-2022 Departed [facility] Start: 10-01-2022 Telephone encounter Moreno Oates MD Work Phone: [facility] Comment on above: Refill Request Start: 09-24-2022 Telephone encounter Moreno Oates MD Work Phone: [facility] Comment on above: Clinical Symptoms Start: 09-19-2022 Telephone encounter Moreno Oates MD Work Phone: [facility] Comment on above: Medication Request ( [facility] ) Start: 09-08-2022 End: 09-08-2022 [facility] Work Phone: Start: 09-08-2022 End: 09-08-2022 Departed Referred [facility] 300 Start: 09-08-2022 Registered Referred [facility] 300 Start: 09-05-2022 Telephone encounter Moreno Oates MD Work Phone: [facility] Comment on above: Medication Request ( [facility] ) Start: 08-29-2022 Telephone encounter Moreno Oates MD Work Phone: [facility] Comment on above: Medication Request ( [facility] Oxycodone apap 5-325 mg 1 tab every 6 hours ) Start: 08-28-2022 Telephone encounter Moreno Oates MD Work Phone: [facility] Comment on above: Outside Lab Results ([facility]) Start: 08-28-2022 End: 08-28-2022 [facility] Work Phone: Start: 08-28-2022 End: 08-28-2022 Departed Referred [facility] [address] Start: 08-28-2022 Registered Referred [facility] 300 Start: 08-11-2022 End: 08-11-2022 Patient encounter procedure Debbie Batista PA-C Work Phone: Orthopaedics Comment on above: Status post total le ft knee replacement (Primary Dx); S/P revision of total knee, right Start: 08-11-2022 End: 08-11-2022 ambulatory [facility] Work Phone: Start: 08-11-2022 End: 08-11-2022 Departed Referred [facility] - [address] Start: 08-08-2022 End: 08-08-2022 ambulatory [facility] Work Phone: Start: 08-08-2022 End: 08-08-2022 Departed Referred [facility] - [address] Start: 08-08-2022 Registered Referred [facility] - [address] Start: 07-30-2022 Telephone encounter Moreno Oates MD Work Phone: Family Practice Comment on above: Received Outside Med ical Records ([place] [facility] ) Start: 07-29-2022 [...] Practice Comment on above: Outside Lab Results ([facility] 07/14/22) Start: 07-14-2022 End: 07-14-2022 Departed Referred [facility] - [address] Start: 07-06-2022 ambulatory Moreno peterson MD Work Phone: Family Practice Start: 07-05-2022 Telephone encounter Moreno Oates MD Work Phone: Family Practice Comment on above: Patient Update ([facility] [place] 07/05/22) Start: 06-25-2022 Refill Moreno peterson MD Work Phone: Family Practice Comment on above: Refill Request Start: 06-18-2022 Telephone encounter Moreno Oates MD Work Phone: Family Practice Comment on above: Orders ([facility]) Start: 06-12-2022 ambulatory UNKNOWN PROVIDER Facili ty:[facility] Start: 06-12-2022 End: 06-12-2022 Subsequent hospital visit by physician [facility] Radiology Comment on above: Pain due to internal orthopedic prosthetic devices, implants and grafts, initial encounter ([facility]) [T84.84XA] Start: 06-09-2022 End: 06-09-2022 ambulatory [facility] Work Phone: Start: 06-09-2022 End: 06-09-2022 Departed Referred [facility] - [address] Start: 06-09-2022 Registered Referred [facility] - [address] Start: 05-22-2022 Telephone encounter Moreno Oates MD Work Phone: [facility] Comment on above: Outside Labs Results ([facility]) Start: 05-22-2022 End: 05-22-2022 ambulatory [facility] Work Phone: Start: 05-22-2022 End: 05-22-2022 Departed Referred [facility] - [address] Start: 05-22-2022 Registered Referred [facility] - [address] Start: 05-21-2022 End: 05-21-2022 Orders Only Debbie Batista PA-C Work Phone: Orthopaedics Comment on above: Status post total le ft knee replacement (Primary Dx) Status post total le ft knee replacement [Z96.652] Start: 05-15-2022 End: 05-15-2022 [facility] Work Phone: Start: 05-15-2022 End: 05-15-2022 [facility] [address] Start: 05-15-2022 Registered Referred [facility] - [address] Start: 05-12-2022 Telephone encounter Moreno Oates MD Work Phone: Family Medicine Comment on above: Medication Request ( [facility] 05/12/2022 Oxycodone/apap) Start: 05-10-2022 End: 05-10-2022 ambulatory [facility] Work Phone: Start: 05-10-2022 End: 05-10-2022 [facility] [address] Start: 05-10-2022 [facility] [place] [facility] [address] Start: 05-01-2022 End: 05-01-2022 ambulatory [facility] Work Phone: Start: 05-01-2022 End: 05-01-2022 Departed Referred [facility] - [address] Start: 04-14-2022 End: 04-14-2022 [facility]ed [facility] [address] Start: 03-24-2022 Telephone encounter Moreno Oates MD Work Phone: Family Practice Comment on above: medication orders ([facility]) Start: 03-19-2022 ambulatory Moreno Oates [facility] Start: 03-18-2022 Refill Moreno peterson MD Work Phone: Family Practice Comment on above: Opened In Error Orders (Mammogram or ders [facility] [place]) Start: 03-17-2022 Telephone encounter Moreno Oates MD Work Phone: Family Practice Comment on above: Diagnositic mammogra m and US orders Start: 03-11-2022 Telephone encounter Moreno Oates MD Work Phone: Family Practice Comment on above: Refill Request Start: 03-10-2022 Telephone encounter Moreno Oates MD Work Phone: Family Practice Comment on above: Orders ([facility] [place]) Outside Lab Results ([facility]) Start: 03-10-2022 End: 03-10-2022 [facility] [address] Start: 03-10-2022 [facility] [place] [facility] [address] Start: 03-06-2022 Telephone encounter Moreno Oates MD Work Phone: Family Medicine [place] Comment on above: Refill Request (Futu re [...] Practice Comment on above: Outside Lab Results ([facility]) Start: 02-10-2022 End: 02-10-2022 ambulatory [facility] Work Phone: Start: 02-10-2022 End: 02-10-2022 Departed Referred [facility] [place] [address] Start: 02-05-2022 Telephone encounter Moreno Oates MD Work Phone: Family Practice Comment on above: Orders (Medication [facility] [place]) Start: 01-07-2022 Telephone encounter Moreno Oates MD Work Phone: Family Practice Comment on above: Refill Request Start: 01-06-2022 End: 01-06-2022 ambulatory [facility] Work Phone: Start: 01-06-2022 End: 01-06-2022 [facility] [place] [facility] [address] Start: 01-02-2022 ambulatory Moreno Oates [facility] Start: 12-30-2021 Telephone encounter Moreno Oates MD Work Phone: Family Practice Comment on above: Orders (prescription request) Start: 12-27-2021 End: 12-27-2021 Departed Referred [facility] [place] [address] Start: 12-23-2021 Telephone encounter Moreno Oates MD Work Phone: Family Practice Comment on above: Orders (Controlled m edication request from [facility]) Orders ([facility] [place] Start: 12-09-2021 Telephone encounter Moreno Oates MD Work Phone: Family Practice Comment on above: Outside Lab Results ([facility]) Start: 12-09-2021 Registered Referred [facility] [address] Start: 12-03-2021 Refill Moreno peterson [...] Registered Referred [facility] 300 Start: 11-08-2021 End: 11-08-2021 Departed Referred [facility] 300 Start: 10-29-2021 Telephone encounter Moreno Oates MD Work Phone: Family Practice Comment on above: Orders (prescription signed off by PCP and faxed to [facility] ) Start: 10-22-2021 Refill Moreno peterson [...] Comment on above: Outside Lab Results (from [facility]) Start: 10-07-2021 End: 10-07-2021 Departed Referred [facility] [place] - [address] Start: 10-04-2021 Refill Moreno peterson MD Work Phone: Family Medicine Comment on above: Refill Request ([facility]) Start: 09-27-2021 Refill Moreno peterson MD Work Phone: Family [facility] Comment on above: Refill Request Start: 09-09-2021 End: 09-09-2021 Departed Referred [facility] [place] - [address] Start: 09-09-2021 Registered Referred [facility] [place] [address] Start: 08-27-2021 Telephone encounter Moreno Oates MD Work Phone: [facility] Comment on above: Orders ([facility] 08/26/2021) Start: 08-26-2021 Refill Moreno peterson MD Work Phone: Family Practice Start: 08-08-2021 End: 08-08-2021 Departed Referred [facility] [place] - [address] Start: 08-08-2021 Registered Referred [facility] [place] [facility] [address] Start: 07-23-2021 End: 07-23-2021 Departed Referred [facility] [place] - [address] Start: 07-23-2021 Registered Referred [facility] [place] [facility] [address] Start: 07-16-2021 End: 07-16-2021 Departed Referred [facility] [place] - [address] Start: 07-16-2021 Registered Referred [facility] [place] [facility] [address] Start: 07-09-2021 End: 07-09-2021 Departed Referred [facility] [place] - [address] Start: 07-09-2021 Registered Referred [facility] [place] [facility] [address] Start: 07-08-2021 Telephone encounter Moreno Oates MD Work Phone: [facility] Comment on above: Received Outside Med ical Records ([facility] 07/05/2021 signature) Start: 07-02-2021 End: 07-02-2021 Departed Referred [facility] [place] [address] Start: 07-02-2021 Registered Referred [facility] [place] - [address] Start: 06-25-2021 End: 06-25-2021 Departed Referred [facility] [place] - [address] Start: 06-25-2021 Registered Referred [facility] [place] [facility] [address] Start: 06-18-2021 End: 06-18-2021 Departed Referred [facility] [place] - [address] Start: 06-18-2021 Registered Referred [facility] [place] - [address] Start: 06-11-2021 End: 06-11-2021 Departed Referred [facility] [place] - [address] Start: 06-04-2021 End: 06-04-2021 Departed Referred [facility] [place] - [address] Start: 05-28-2021 Registered Referred [facility] [place] [facility] [address] Start: 01-15-2021 End: 01-15-2021 Emergency department patient visit Nehal Madden DO Work Phone: [facility] Comment on above: Chronic pain of righ t knee (Primary Dx) Start: 01-05-2021 End: 01-06-2021 Emergency department patient visit Erika Hudson MD Work Phone: [facility] Emergency Dept Start: 12-18-2020 End: 12-19-2020 Emergency department patient visit Jorge Mejia MD Work Phone: [facility] [place] [facility] Comment on above: Cellulitis of right lower extremity (Primary Dx) Start: 01-27-2020 End: 02-03-2020 Evaluation and management of inpatient Alexandro Ackerman Work Phone: [facility] Comment on above: Generalized weakness [...] Basic metabolic pane l calcium total Marc Orionerma DO Work Phone: Start: 11-17-2022 Ecg routine [...] Start: 01-15-2021 Ct angiography chest w/contrast/noncontrast Nehal Chano DO Work Phone: Start: 01-15-2021 POCT VENOUS Nehal detention ulloch DO Work Phone: Start: 01-15-2021 RESPIRATORY PANEL, [...] Basic metabolic pane l calcium total Jorge Adusumilli MD Work Phone: Start: 12-18-2020 C-reactive protein [...] gi pth gn multiplex probe tq 12-25 [facility] Work Phone: Start: 01-28-2020 Inf agent det nuclei c acid clostridium amp probe [facility] Work Phone: Start: 01-28-2020 ADD ON LAB TEST Kiley Goff Work Phone: Start: 01-28-2020 Assay of magnesium Pr[facility] Work Phone: Start: 01-28-2020 Blood count complete auto&auto difrntl wbc [facility] Work Phone: Start: 01-28-2020 Culture bacterial bl ood aerobic w/id isolates [facility] Work Phone: Start: 01-28-2020 MANUAL DIFFERENTIAL [facility] Work Phone: Start: 01-27-2020 CULTURE, BLOOD [...] Start: 11-04-2019 DIFFERENTIAL, BODY FLUID Pb [facility] Work Phone: Start: 11-04-2019 Smr prim src gram/gi emsa stain bct fungi/cell Pb A Egge[facility] Work Phone: Start: 11-04-2019 Cell count misc body fluids w/differential count Pb A [facility] Work Phone: Start: 11-04-2019 Crystal id light andrea roscopy edmar tiss/any fluid Pb A [facility] Work Phone: Start: 11-04-2019 Radiologic examinati on knee 3 views David Jiménez Work Phone: Start: 11-04-2019 Basic metabolic pane l calcium total David Louisee Work Phone: Start: 11-04-2019 Blood count complete auto&auto difrntl wbc David George Jessy Work Phone: Start: 11-04-2019 C-reactive protein Steven George Jessy Work Phone: Start: 11-04-2019 Prothrombin time David George Jessy Work Phone: Start: 11-04-2019 Sedimentation rate r bc automated David George Jessy Work Phone: Start: 10-25-2019 Assay of [...] Romero Work Phone: Start: 10-21-2019 POCT ARTERIAL Des willoughbytanadya Work Phone: Start: 10-21-2019 Basic metabolic pane l calcium total Masroor Romero Work Phone: Start: 10-21-2019 Blood count complete auto&auto difrntl wbc Masroor Romero Work Phone: Start: 10-21-2019 Hepatic function panel Masroor Romero Work Phone: Start: 10-20-2019 EEG REPORT Torin Baldomero Salazar Work Phone: Start: 10-20-2019 Assay of [...] Luli Morris Work Phone: Start: 10-20-2019 COVID-19 Scott cadet Work Phone: Start: 10-19-2019 Gluc bld gluc mntr d ev cleared fda spec home use [email or web address] Work Phone: Start: 10-19-2019 Basic metabolic pane l calcium total Masroor Romero Work Phone: Start: 10-19-2019 Blood count complete auto&auto difrntl wbc Masroor Romero Work Phone: Start: 10-19-2019 Hepatic function panel Masroor Romero Work Phone: Start: 10-19-2019 Gluc bld gluc mntr d ev cleared fda spec home use [email or web address] Work Phone: Start: 10-18-2019 Radiologic exam ches [...] ev cleared fda spec home use [email or web address] Work Phone: Start: 10-16-2019 Basic metabolic pane l calcium total Masroor Romero Work Phone: Start: 10-16-2019 Blood count complete auto&auto difrntl wbc Masroor Romero Work Phone: Start: 10-16-2019 Hepatic function panel Masroor Romero Work Phone: Start: 10-15-2019 Basic metabolic pane l calcium total Masroor Romero Work Phone: Start: 10-15-2019 Blood count complete auto&auto difrntl wbc Des Albertsa Work Phone: Start: 10-15-2019 Hepatic function panel Des Albertsa Work Phone: Start: 10-14-2019 Radiologic exam ches t single view Clinton Deleon Work Phone: Start: 10-14-2019 Acute hepatitis panel I daniel Deleon Work Phone: Start: 10-14-2019 Assay of magnesium Ifte ronan Deleon Work Phone: Start: 10-14-2019 Assay of phosphorus inorganic Iftjohnathan Deleon Work Phone: Start: 10-14-2019 Blood count complete auto&auto difrntl wbc Clinton Deleon Work Phone: Start: 10-14-2019 Comprehensive metabo lic panel Clinton Deleon Work Phone: Start: 10-13-2019 Potassium serum plasma/whole blood Clinton Deleon Work Phone: Start: 10-13-2019 Radiologic exam [...] Iftjohnathan Deleon Work Phone: Start: 10-12-2019 EXTUBATION Iftekhar H usain Work Phone: Start: 10-12-2019 Drug screen quantita tive vancomycin Iftjohnathan Deleon Work Phone: Start: 10-12-2019 POCT ARTERIAL Luli farley Work Phone: Start: 10-12-2019 Assay of magnesium Koffi patric A [employer] Work Phone: Start: 10-12-2019 Assay of phosphorus inorganic Nica A [employer] Work Phone: Start: 10-12-2019 Blood count complete auto&auto difrntl wbc Nica A [employer] Work Phone: Start: 10-12-2019 Comprehensive metabo lic panel Masroor Romero Work Phone: Start: 10-12-2019 Radiologic exam ches t single view [employer] Work Phone: Start: 10-11-2019 Radiologic exam ches t single view [employer] Work Phone: Start: 10-11-2019 Assay of magnesium Koffi patric A [employer] Work Phone: Start: 10-11-2019 Assay of phosphorus inorganic Nica Rodríguez [employer] Work Phone: Start: 10-11-2019 Blood count complete auto&auto difrntl wbc Nica Rodríguez [employer] Work Phone: Start: 10-11-2019 Comprehensive metabo lic panel Masroor Romero Work Phone: Start: 10-11-2019 POCT ARTERIAL Rami Abbo ud Work Phone: Start: 10-10-2019 Radiologic exam ches t single view [employer] Work Phone: Start: 10-10-2019 POCT ARTERIAL Rami Abbo ud Work Phone: Start: 10-10-2019 Assay of magnesium Koffi patric A [employer] Work Phone: Start: 10-10-2019 Assay of phosphorus inorganic Nica A [employer] Work Phone: Start: 10-10-2019 Blood count complete auto&auto difrntl wbc Nica Rodríguez [employer] Work Phone: Start: 10-10-2019 Comprehensive metabo lic panel Des Romero Work Phone: Start: 10-09-2019 Smr prim src gram/gi emsa stain bct fungi/cell Caseyor Romero Work Phone: Start: 10-09-2019 Virus centrifuge enh ncd id imfluor stain ea Caseyor Romero Work Phone: Start: 10-09-2019 POCT ARTERIAL Luli Jones miguelito Work Phone: Start: 10-09-2019 Blood count hemoglobin Nica Marcos [employer] Work Phone: Start: 10-09-2019 Radiologic exam ches t single view [employer] Work Phone: Start: 10-09-2019 EXTUBATION Masroor Mu stafa Work Phone: Start: 10-09-2019 Basic metabolic pane l calcium total Rami Judy Work Phone: Start: 10-09-2019 Blood count hemoglobin Nica Marcos [employer] Work Phone: Start: 10-09-2019 POCT ARTERIAL Luli Jones [employer] Work Phone: Start: 10-09-2019 Assay of magnesium Rami Judy Work Phone: Start: 10-09-2019 Assay of phosphorus inorganic Rami Judy Work Phone: Start: 10-09-2019 Basic metabolic pane l calcium total Rami Judy Work Phone: Start: 10-09-2019 Blood count complete auto&auto difrntl wbc Nica Rodríguez [employer] Work Phone: Start: 10-08-2019 Ecg routine ecg w/le ast 12 lds w/i&r Nica Rodríguez [employer] Work Phone: Start: 10-08-2019 Basic metabolic pane l calcium total Rami Judy Work Phone: Start: 10-08-2019 Blood count hemoglobin Nica Rodríguez [employer] Work Phone: Start: 10-08-2019 Echo tthrc r-t 2d w/wom-mode compl spec&colr d Rami Judy Work Phone: Start: 10-08-2019 Basic metabolic pane l calcium total Rami Judy Work Phone: Start: 10-08-2019 Blood count hemoglobin Nica Rodríguez [employer] Work Phone: Start: 10-08-2019 Radiologic exam ches t single view Masroor Romero Work Phone: Start: 10-08-2019 Ecg routine ecg w/le ast 12 lds w/i&r Nica A [employer] Work Phone: Start: 10-08-2019 POCT ARTERIAL Luli farley Work Phone: Start: 10-08-2019 Assay of magnesium Koffi patric A [employer] Work Phone: Start: 10-08-2019 Assay of phosphorus inorganic Nica A [employer] Work Phone: Start: 10-08-2019 Blood count complete auto&auto difrntl wbc Nica Rodríguez [employer] Work Phone: Start: 10-07-2019 Basic metabolic pane l calcium total Rami Judy Work Phone: Start: 10-07-2019 Ecg routine ecg w/le ast 12 lds w/i&r Nica A [employer] Work Phone: Start: 10-07-2019 Basic metabolic pane l calcium total Rami Judy Work Phone: Start: 10-07-2019 Ecg routine ecg w/le ast 12 lds w/i&r Nica A [employer] Work Phone: Start: 10-07-2019 POCT ARTERIAL Luli farley Work Phone: Start: 10-07-2019 Assay of magnesium Koffi patric A [employer] Work Phone: Start: 10-07-2019 Assay of phosphorus inorganic Nica A [employer] Work Phone: Start: 10-07-2019 Basic metabolic pane l calcium total Nica Rodríguez [employer] Work Phone: Start: 10-07-2019 Blood count complete auto&auto difrntl wbc Nica Rodríguez [employer] Work Phone: Start: 10-06-2019 Ecg routine ecg w/le ast 12 lds w/i&r Nica Rodríguez [employer] Work Phone: Start: 10-06-2019 Basic metabolic pane l calcium total Rami Judy Work Phone: Start: 10-06-2019 POCT ARTERIAL Luli cabreraGametime Work Phone: Start: 10-06-2019 Smr prim src gram/gi emsa stain bct fungi/cell Rami Judy Work Phone: Start: 10-06-2019 Virus centrifuge enh ncd id imfluor stain ea Rami Judy Work Phone: Start: 10-06-2019 Basic metabolic pane l calcium total Rami Judy Work Phone: Start: 10-06-2019 Ecg routine ecg w/le ast 12 lds w/i&r Nica Rodríguez [employer] Work Phone: Start: 10-06-2019 POCT ARTERIAL Luli Jones [employer] Work Phone: Start: 10-06-2019 ADD ON LAB TEST Nathalia Rodríguez [employer] Work Phone: Start: 10-06-2019 Assay of magnesium Koffi Rodríguez [employer] Work Phone: Start: 10-06-2019 Blood count complete auto&auto difrntl wbc Nica Rodríguez [employer] Work Phone: Start: 10-06-2019 MANUAL DIFFERENTIAL Ila yazmin Rodríguez [employer] Work Phone: Start: 10-06-2019 RENAL + LIVER PROF Koffi Rodríguez [employer] Work Phone: Start: 10-05-2019 Ecg routine ecg w/le ast 12 lds w/i&r Nica Rodríguez [employer] Work Phone: Start: 10-05-2019 Basic metabolic pane [...] w/le ast 12 lds w/i&r Nica Rodríguez [employer] Work Phone: Start: 10-05-2019 Ct angiography chest w/contrast/noncontrast Rajendra Kim Work Phone: Start: 10-05-2019 POCT ARTERIAL Luli farley Work Phone: Start: 10-05-2019 Radiologic exam ches t single view Nica Rodríguez [employer] Work Phone: Start: 10-05-2019 Calcium ionized Nathalia Rodríguez [employer] Work Phone: Start: 10-05-2019 ADD ON LAB TEST Mary Janend justina Rodríguez [employer] Work Phone: Start: 10-05-2019 Assay of magnesium Koffi patric Rodríguez [employer] Work Phone: Start: 10-05-2019 Assay of phosphorus inorganic Nica Rodríguez [employer] Work Phone: Start: 10-05-2019 Basic metabolic pane l calcium total Nica Rodríguez [employer] Work Phone: Start: 10-05-2019 Blood count complete auto&auto difrntl wbc Nica Rodríguez [employer] Work Phone: Start: 10-05-2019 MANUAL DIFFERENTIAL Ila yazmin Rodríguez [employer] Work Phone: Start: 10-04-2019 Ecg routine ecg w/le ast 12 lds w/i&r Nica Rodríguez [employer] Work Phone: Start: 10-04-2019 Basic metabolic pane l calcium total Teoi Judy Work Phone: Start: 10-04-2019 POCT ARTERIAL Luli farley Work Phone: Start: 10-04-2019 Procalcitonin (pct) Teo i Judy Work Phone: Start: 10-04-2019 Basic metabolic pane l calcium total Rami Judy Work Phone: Start: 10-04-2019 Ecg routine ecg w/le ast 12 lds w/i&r Nica A [employer] Work Phone: Start: 10-04-2019 POCT ARTERIAL Luli farley Work Phone: Start: 10-04-2019 ADD ON LAB TEST Nathalia Rodríguez [employer] Work Phone: Start: 10-04-2019 Assay of magnesium Rami Judy Work Phone: Start: 10-04-2019 Assay of phosphorus inorganic Rami Judy Work Phone: Start: 10-04-2019 BASIC METABOLIC PANE L W/ REFLEX TO MG FOR LOW K Rami Judy Work Phone: Start: 10-04-2019 Blood count complete auto&auto difrntl wbc Rami Judy Work Phone: Start: 10-03-2019 Ecg routine ecg w/le ast 12 lds w/i&r Nica A [employer] Work Phone: Start: 10-03-2019 Basic metabolic pane l calcium total Rami Judy Work Phone: Start: 10-03-2019 Culture bacterial bl ood aerobic w/id isolates Luli Morris Work Phone: Start: 10-03-2019 POCT ARTERIAL Rami [...] Work Phone: Start: 10-03-2019 Assay of acetaminophen Flavio Heath Work Phone: Start: 10-03-2019 Assay of ethanol Flavio Heath Work Phone: Start: 10-03-2019 Assay of lactate Flavio Good Work Phone: Start: 10-03-2019 Assay of lipase [facility] Work Phone: Start: 10-03-2019 Assay of magnesium Saurabh d Good Work Phone: Start: 10-03-2019 Assay of salicylate Temo id Good Work Phone: Start: 10-03-2019 Assay of troponin quantitative Flavio Heath Work Phone: Start: 10-03-2019 Blood count complete auto&auto difrntl wbc Flavio Good Work Phone: Start: 10-03-2019 Comprehensive metabo lic panel Flavio Heath Work Phone: Start: 10-03-2019 Creatine kinase total D avid Latonia Good Work Phone: Start: 2020 CULTURE, BLOOD 1 Flavio Good Work Phone: Start: 10-03-2019 Natriuretic peptide Temo id Latonia Good Work Phone: Start: 10-03-2019 Ct cervical spine w/ o contrast material [facility] Good Work Phone: Start: 10-03-2019 Ct head/brain w/o co ntrast material Luli Nelsonh Work Phone: Start: 10-03-2019 Radiologic exam ches t single view Luli Lincoln Good Work Phone: Start: 10-03-2019 Ecg routine ecg w/le ast 12 lds w/i&r Luli Nelsonh Work Phone: Start: 10-03-2019 Gluc bld gluc mntr d ev cleared fda spec home use Unknown Provider Result Start: 10-03-2019 Intubation endotrach eal emergency procedure Luli Nelsonh Work Phone: Start: 11-01-2018 Adult depression scr eening assessment Moreno Oates MD Work Phone: Plan of Treatment Date Care Activity Detail Author Start: 2031 RSV Vaccine (1 - 1-d ose 75+ series) RSV Vaccine (1 - 1-dose 75+ series) [facility] Start: 07-12-2027 Diabetes Screening Diabetes Screenin g [facility] Start: 04-11-2027 Diabetes Screening Diabetes Screenin g [facility] Start: 12-06-2026 DTaP/Tdap/Td vaccine (2 - Td or Tdap) DTaP/Tdap/Td vaccine (2 - Td or Tdap) [facility] Work Phone: Start: 12-06-2026 DTaP/Tdap/Td vaccine (2 - Td) DTaP/Tdap/Td vaccine (2 - Td) [place] Start: 12-06-2026 DTaP/Tdap/Td Vaccine s (2 - Td or Tdap) DTaP/Tdap/Td Vaccines (2 - Td or Tdap) [facility] Start: 12-06-2026 Urine microalbumin profile [facility] Start: 11-08-2026 Diabetes Screening Diabetes Screenin g [facility] Start: 06-08-2026 Diabetes Screening Diabetes Screenin g [facility] Start: 05-11-2026 Diabetes Screening Diabetes Screenin g [facility] Start: 03-09-2026 Diabetes Screening Diabetes Screenin g [facility] Start: 12-30-2025 DIABETES SCREEN DIABETES SCREEN [facility] Start: 12-30-2025 Diabetes Screening Diabetes Screenin g [facility] Start: 11-10-2025 DIABETES SCREEN DIABETES SCREEN [facility] Start: 10-06-2025 DIABETES SCREEN DIABETES SCREEN [facility] Start: 04-14-2025 DIABETES SCREEN DIABETES SCREEN [facility] Start: 01-30-2025 Influenza vaccination C [facility] Start: 06-01-2024 Advance Directive Discussion Advance Directive Discussion [facility] Start: 06-01-2024 Medicare Advantage Annual Wellness Visit Medicare Advantage Annual Wellness Visit [facility] Start: 01-31-2024 Covid-19 Vaccine ( season) Covid-19 Vaccine ( season) [facility] Start: 01-31-2024 Influenza vaccination [facility] Start: 01-07-2024 DIABETES SCREEN DIABETES SCREEN [facility] Start: 06-01-2023 Advance Directive Discussion Advance Directive Discussion [facility] Start: 06-01-2023 Behavioral Health Screening Behavioral Health Screening [facility] Start: 06-01-2023 Depression Assessment [facility] Start: 01-30-2023 Covid-19 Vaccine ( season) Covid-19 Vaccine () [facility] Start: 01-30-2023 Influenza vaccination [facility] Start: 06-01-2022 ADVANCE DIRECTIVE DISCUSSION ADVANCE DIRECTIVE DISCUSSION [facility] Start: 06-01-2022 DEPRESSION ASSESSMENT DEPRESSION ASS ESSMENT [facility] Start: 01-30-2022 Influenza vaccination [facility] Start: 06-01-2021 ADVANCE DIRECTIVE DISCUSSION ADVANCE DIRECTIVE DISCUSSION [facility] Start: 06-01-2021 DEPRESSION ASSESSMENT [facility] Start: 2021 BONE DENSITY BONE DENSITY [facility] Start: 2021 Bone Density Screening Bone Density Screening [facility] Start: 2021 Pneumococcal Vaccine : 65+ (1 of 1 - PCV) Pneumococcal Vaccine: 65+ (1 of 1 - PCV) [facility] Start: 2021 PNEUMOVAX AGE 65 AND OVER WITH 5YR LOOKBACK (#1) PNEUMOVAX AGE 65 AND OVER WITH 5YR LOOKBACK (#1) [facility] Start: 2021 Screening for osteoporosis Bone Density Screening [facility] Start: 01-30-2021 Influenza vaccination [facility] Start: 12-27-2020 End: 12-27-2020 Patient encounter procedure 12/27/2020 Office Visit Urology Zoila Gallagher, BRICK CATCHER - DOCK [employer] [address] [place] [address] [phone] [facility] Latoya Start: 12-11-2020 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 VISIT ANNUAL PCP TEAM CHRONIC DISEASE VISIT [facility] Start: 11-25-2020 COVID-19 VACCINE (3 - Booster for Pfizer series) COVID-19 VACCINE (3 - Booster for Pfizer series) [facility] Start: 10-23-2020 Creatinine measurement Creatinine mo nitoring [place] Start: 10-23-2020 Potassium monitoring Potassium monit oring [place] Start: 08-22-2020 COVID-19 VACCINE (3 - Booster for Pfizer series) COVID-19 VACCINE (3 - Booster for Pfizer series) [facility] Start: 08-22-2020 COVID-19 VACCINE (3 - Pfizer series) COVID-19 VACCINE (3 - Pfizer series) [facility] Start: 01-31-2020 Influenza vaccination M [place], [place] Start: 12-31-2019 BP CONTROLLED (<130/80) BP CONTROLLE D (<130/80) [facility] Start: 11-02-2019 Adult depression screening assessment DEPRESSION SCREENING [facility] Start: 06-05-2017 Screening for malign ant neoplasm of breast Breast cancer screen [place] Start: 2016 RSV Vaccine (1 - 1-d ose 60+ series) RSV Vaccine (1 - 1-dose 60+ series) [facility] Start: 2006 Pneumococcal Vaccine : 50+ (1 of 1 - PCV) Pneumococcal Vaccine: 50+ (1 of 1 - PCV) [facility] Start: 2006 Screening for malign ant neoplasm of colon Colon cancer screen colonoscopy [place] Start: 2006 Shingles Vaccine (1 of 2) Shingles Vaccine (1 of 2) [place] Start: 2006 SHINGRIX VACCINE (1 of 2) SHINGRIX VACCINE (1 of 2) [facility] Start: 2006 Zoster Vaccines (1 of 2) Zoste r Vaccines (1 of 2) [facility] Start: 2001 COLOGUARD (FIT-DNA) COLOGUARD (FIT-D NA) [facility] Start: 2001 Colonoscopy COLONOSCOPY [facility] Start: 2001 COLORECTAL CANCER SCREENING COLORECTAL CANCER SCREENING [facility] Start: [address] COLONOGRAPHY [facility] Start: 2001 FECAL OCCULT BLOOD FECAL OCCULT BLOO D [facility] Start: 2001 Lipid 1996 panel - S alfonzo or Plasma Lipid Screening [facility] Start: 2001 Lipid panel Lipid Screening [facility] Start: 2001 LIPID SCREEN LIPID SCREEN [facility] Start: 2001 Screening for malign ant neoplasm of colon [facility] Start: 2001 SIGMOIDOSCOPY SIGMOIDOSCOPY [facility] Start: 1996 Mammography [facility] Start: 1996 Screening for malign ant neoplasm of breast [facility] Start: 1974 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 Annual PCP Team Chronic Disease Visit [facility] Start: 1974 Anxiety Screening Anxiety Screening [facility] Start: 1974 Depression Screening Depression Scre ing [facility] Start: 1974 Diabetes mellitus screening Diabetes Screening [facility] Start: 1974 HIV SCREENING HIV SCREENING [facility] Start: 1968 COVID-19 Vaccine (1) COVID-19 Vaccin e (1) [facility] Work Phone: Start: 1968 Depression Screening Depression Scre ening [facility] Start: 1962 Pneumococcal 0-64 ye ars Vaccine (1 of 1 - PPSV23) Pneumococcal 0-64 years Vaccine (1 of 1 - PPSV23) [place] Start: 1962 Pneumococcal 0-64 ye ars Vaccine (1 of 2 - PPSV23) Pneumococcal 0-64 years Vaccine (1 of 2 - PPSV23) [facility] Work Phone: Start: 1962 Pneumococcal Vaccine : 65+ (1 - PCV) Pneumococcal Vaccine: 65+ (1 - PCV) [facility] Start: 1962 Pneumococcal Vaccine : 65+ (1 of 2 - PCV) Pneumococcal Vaccine: 65+ (1 of 2 - PCV) [facility] Start: 1962 Pneumococcal Vaccine : 65+ Years (1 - PCV) Pneumococcal Vaccine: 65+ Years (1 - PCV) [facility] Start: 1962 PNEUMOCOCCAL: 65+ (1 - PCV) PNEUMOCOCCAL: 65+ (1 - PCV) [facility] Start: 1956 Lipid panel Lipid Panel [facility] Start: 1956 Screening for malign ant neoplasm of colon [facility] Start: 1956 Screening for osteoporosis Bone Density Scan [facility] Acapella Acapella Respira tory Care Routine Daily until discontinued starting 10/25/2019 [facility] on above: Daily until disconti nued starting 10/25/2019 Basic metabolic 2000 panel [facility] Comment on above: Daily until disconti nued starting 01/30/2020, 4 completed Daily until disconti nued starting 10/15/2019, 9 completed End: 11-05-2019 Basic Metabolic Panel w/ Reflex to MG Basic Metabolic Panel w/ Reflex to MG Lab Routine Tomorrow AM for 1 Occurrences starting 11/05/2019 until 11/05/2019 [facility] Comment on above: Tomorrow AM for 1 Oc currences starting 11/05/2019 until 11/05/2019 BIPAP BIPAP Respirator y Care Routine Every 4hr until discontinued starting 10/24/2019 [facility] Comment on above: Every 4hr until disc ontinued starting 10/24/2019 End: 01-15-2021 Blood gas, venous Blood gas, venous Lab STAT One Time for 1 Occurrences starting 01/15/2021 until 01/15/2021 [facility] Work Phone: Comment on above: One Time for 1 Occur rences starting 01/15/2021 until 01/15/2021 Calcium, Ionized Calcium, Ionize d Lab Routine Daily until discontinued starting 10/22/2019, 4 completed [facility] Comment on above: Daily until disconti nued starting 10/22/2019, 4 completed End: 11-05-2019 CBC CBC Lab Routine Tomorrow AM for 1 Occurrences starting 11/05/2019 until 11/05/2019 [place] Comment on above: Tomorrow AM for 1 Oc currences starting 11/05/2019 until 11/05/2019 CBC Auto Differential [place] Comment on above: Daily until disconti nued starting 01/30/2020, 4 completed Daily until disconti nued starting 10/15/2019, 9 completed End: 10-03-2019 COVID-19 COVID-19 Lab Routine Once for 1 Occurrences starting 10/03/2019 until 10/03/2019 [place] Comment on above: Once for 1 Occurrenc es starting 10/03/2019 until 10/03/2019 COVID-19 COVID-19 Lab Rou carlos 10/03/2019 6:06 PM EDT [place] End: 01-31-2020 CRP [Mass/Vol] C-Reactive Protein Lab Add-On One Time for 1 Occurrences starting 01/31/2020 until 01/31/2020 [place] Comment on above: One Time for 1 Occur rences starting 01/31/2020 until 01/31/2020 End: 06-12-2022 Ct lower extremity w/o contrast material [facility] Work Phone: Comment on above: 1 Occurrences starti ng 06/12/2022 until 06/12/2022 End: 11-04-2019 Culture, Anaerobic and Aerobic Culture, Anaerobic and Aerobic Microbiology STAT One Time for 1 Occurrences starting 11/04/2019 until 11/04/2019 [place] Comment on above: One Time for 1 Occur rences starting 11/04/2019 until 11/04/2019 Culture, Anaerobic a nd Aerobic [place] End: 01-05-2021 Culture, Anaerobic and Aerobic Culture, Anaerobic and Aerobic Microbiology STAT One Time for 1 Occurrences starting 01/05/2021 until 01/05/2021 [facility] Work Phone: Comment on above: One Time for 1 Occur rences starting 01/05/2021 until 01/05/2021 End: 11-04-2019 Culture, Blood 1 Culture, Blood 1 Microbiology STAT One Time for 1 Occurrences starting 11/04/2019 until 11/04/2019 [place] Comment on above: One Time for [...] for 1 Occurrences starting 11/04/2019 until 11/04/2019 [place] Comment on above: One Time for [...] left 1 Occurrences starting 03/17/2022 until 04/16/2023 [facility] Work Phone: Comment on above: 1 Occurrences starti ng 03/17/2022 until 04/16/2023 ECG 12 lead ECG 12 lead CV E CG STAT 11/17/2022 9:13 AM EDT [facility] Work Phone: EKG 12 [facility] Comment on above: As Needed until disc ontinued starting 10/08/2019 Hepatic Function Panel Hepatic F unction Panel Lab Routine Daily until discontinued starting 10/15/2019, 9 [facility] [place] Comment on above: Daily until disconti nued starting 10/15/2019, 9 completed End: 10-25-2019 Home O2 eval (desaturation screen) Home O2 eval (desaturation screen) Respiratory Care Routine One Time for 1 Occurrences starting 10/25/2019 until 10/25/2019 [facility] JAIDA Comment on above: One Time for 1 Occur rences starting 10/25/2019 until 10/25/2019 Initiate Oxygen Ther apy Protocol [facility] [employer] Comment on above: Daily until disconti nued starting 11/04/2019 Daily until disconti nued starting 10/03/2019 End: 01-05-2021 Initiate Sepsis Narrator Initiate Sepsis Narrator Respiratory Care STAT Once for 1 Occurrences starting 01/05/2021 until 01/05/2021 [facility] Work Phone: Comment on above: Once for 1 Occurrenc es starting 01/05/2021 until 01/05/2021 End: 01-15-2021 Initiate Sepsis Narrator Initiate Sepsis Narrator Respiratory Care STAT Once for 1 Occurrences starting 01/15/2021 until 01/15/2021 [facility] Work Phone: Comment on above: Once for 1 Occurrenc es starting 01/15/2021 until 01/15/2021 End: 01-15-2021 Lactate, Sepsis Lactate, Sepsis Lab Timed Now Then Every 2hr for 2 Occurrences starting 01/15/2021 until 01/15/2021, 1 completed [facility] Work Phone: Comment on above: Now Then Every 2hr f or 2 Occurrences starting 01/15/2021 until 01/15/2021, 1 completed Magnesium [Mass/Vol] MAGNESIUM L ab Routine Daily until discontinued starting 10/22/2019, 4 completed [facility] Comment on above: Daily until disconti nued starting 10/22/2019, 4 completed End: 12-12-2023 AMANDA SCREENING AMANDA SCREENING Radiology Routine Encounter for screening mammogram for breast cancer 1 Occurrences starting 11/12/2022 until 12/12/2023 [facility] Work Phone: Comment on above: 1 Occurrences [...] for 1 Occurrences starting 01/05/2021 until 01/05/2021 [employer] Work Phone: Comment on above: One Time for 1 Occur rences starting 01/05/2021 until 01/05/2021 Microscopic observat ion [Identifier] in Unspecified specimen by Gram stain Gram Stain Microbiology STAT 01/05/2021 11:29 PM EDT [facility] Work Phone: Oxygen therapy [[facility]] [facility] Comment on above: Daily until disconti nued starting 01/27/2020 Daily until disconti nued starting 01/05/2021 Daily until disconti nued starting 01/15/2021 End: 10-04-2019 PBP2A TEST FOR S. AUREUS PBP2A TEST FOR S. AUREUS Lab Routine Once for 1 Occurrences starting 10/04/2019 until 10/04/2019 [facility] Comment on above: Once for 1 Occurrenc es starting 10/04/2019 until 10/04/2019 End: 10-09-2019 PBP2A TEST FOR S. AUREUS PBP2A TEST FOR S. AUREUS Lab Routine Once for 1 Occurrences starting 10/09/2019 until 10/09/2019 [facility] Comment on above: Once for 1 Occurrenc es starting 10/09/2019 until 10/09/2019 PBP2A TEST FOR S. AUREUS [place] Phosphate [Mass/Vol] Phosphorus Lab Routine Daily until discontinued starting 10/22/2019, 4 completed [place] Comment on above: Daily until disconti nued starting 10/22/2019, 4 completed End: 10-03-2019 Procalcitonin Procalcitonin Lab Routine One Time for 1 Occurrences starting 10/03/2019 until 10/03/2019 [facility] JAIDA Comment on above: One Time for 1 Occur rences starting 10/03/2019 until 10/03/2019 Procalcitonin [place] Comment on above: Q48H until discontin ued starting 01/05/2021, 1 completed Q48H until discontin ued starting 01/15/2021, 1 completed End: 01-31-2020 Sedimentation Rate Sedimentation Rate Lab Add-On One Time for 1 Occurrences starting 01/31/2020 until 01/31/2020 [facility] JAIDA Comment on above: One Time for 1 Occur rences starting 01/31/2020 until 01/31/2020 Spirometry panel [place], [place] Comment on above: Daily until disconti [...] left 1 Occurrences starting 03/17/2022 until 04/16/2023 [facility] Work Phone: Comment on above: 1 Occurrences starti ng 03/17/2022 until 04/16/2023 End: 01-30-2020 Wound ostomy eval Wound ostomy eval Wound Ostomy Routine One Time for 1 Occurrences starting 01/30/2020 until 01/30/2020 [facility], [place] Comment on above: One Time for 1 Occur rences starting 01/30/2020 until 01/30/2020 [facility] Immunizations Immunization Date Immunization Notes Care Provider Nadya lock 03-25-2018 influenza, injectabl e, quadrivalent, preservative free Moreno Oates MD Work Phone: [facility] 03-25-2018 influenza virus vacc ine, unspecified formulation Marc Padronerma Work Phone: [facility] 01-29-2017 influenza, injectabl e, quadrivalent, contains preservative Moreno Oates MD Work Phone: [facility] 01-11-2017 influenza, injectabl e, quadrivalent, preservative free Moreno Oates MD Work Phone: [facility] 12-06-2016 tetanus toxoid, redu milton diphtheria toxoid, and acellular pertussis vaccine, adsorbed [facility] 03-23-2016 influenza, injectabl e, quadrivalent, preservative free Moreno Oates MD Work Phone: [facility] 02-15-2016 Influenza Vaccine, unspecified formulation [facility] [place] 02-15-2016 influenza, injectabl e, quadrivalent, preservative free Moreno Oates MD Work Phone: [facility] 02-15-2016 influenza, seasonal, injectable Moreno Oates MD Work Phone: [facility] 03-24-2015 influenza nasal, unspecified formulation Moreno Oates MD Work Phone: [facility] 03-24-2015 influenza virus vacc ine, unspecified formulation [facility] 03-24-2015 influenza, seasonal, injectable, preservative free Moreno Oates MD Work Phone: [facility] 04-04-2009 novel Influenza-H1N1 -09, live virus for nasal administration Moreno Oates MD Work Phone: [facility] Payers Date Payer Category Payer Self-pay [id number] 2021 Private Health Insurance 2021 Unknown [id number] 2021 Medicare MEDICARE MEDICAR E A AND B [id number] 2021-Present [phone] [place] [address] Medicare [id number] 2021 Medicare MEDICARE MEDICAR E A AND B [id number] 2021-Present [phone] [place] [address] Medicare [id number] 2019 Medicaid [place]ID [place] [facility] DEPT OF JOB xxxxxxxxxxxx 2019-Present [phone] [address] [place] [address] xxxxxxxxxxxx [id number] 2018 Medicaid [id number] [facility] MEDICAID [id number] 2018-Present [phone] [address] [place] [address] Medicaid [id number] 2018 Medicaid [id number] 2018 Unknown [id number] 1959 Unknown [id number] 1955 Unknown [id number] .668 1955 Unknown [id number] [id number] .668 1955 Unknown [id number] 2.16.840.1.942634.3.579.2 .598 Unknown [id number] 2.16.840.1.519397.3.579.2 .462 Unknown [id number] 2.16.840.1.799345.3.579.2 .462 Unknown [id number] 2.16.840.1.522393.3.579.2 .462 Unknown [id number] 2.16.840.1.628262.3.579.2 .462 Unknown [id number] 2.16.840.1.052624.3.579.2 .462 Unknown [id number] 2.16.840.1.781559.3.579.2 .462 Unknown [id number] 2.16.840.1.743248.3.579.2 .462 Unknown [id number] 2.16.840.1.039946.3.579.2 .462 Unknown [id number] 2.16.840.1.327659.3.579.2 .462 Unknown [id number] 2.16.840.1.808421.3.579.2 .462 Unknown [id number] 2.16.840.1.279133.3.579.2 .462 Unknown [id number] 2.16.840.1.264456.3.579.2 .462 Unknown [id number] 2.16.840.1.088016.3.579.2 .462 Unknown [id number] 2.16.840.1.745768.3.579.2 .462 Social History Date Type Detail Facility Start: 11-04-2019 End: 01-29-2020 Tobacco smoking status NHIS Former smoker Annie GimmieJAIDA Start: [birth year]01-1968 History of tobacco use [facility] COR[facility] Start: 11-04-2019 End: 06-16-2022 Cigarettes smoked current (pack per day) - Reported [facility] Work Phone: Start: 11-04-2019 End: 12-21-2020 Alcohol intake Current non-drinker of alcohol (finding) Annie GimmieJAIDA Start: 1955 Sex Assigned At [facility] on file [facility] Exposure to SARS-CoV -2 (event) Unable to assess Annie GimmieJAIDA Start: 04-17-2017 End: 01-29-2020 Tobacco use and exposure [facility] Exposure to SARS-CoV -2 (event) Not sure [facility] Start: [birth year]01-1968 End: 10-23-2019 Tobacco smoking status MOIS Current every day smoker [facility] Start: 11-05-2019 History SDOH Financial 4 [facility] Start: 11-05-2019 History SDOH Food Worry 2 [facility] Start: 1955 Sex Assigned At Female W [facility] Start: 05-20-2022 End: 06-16-2022 Tobacco use panel [facility] Work Phone: Start: 12-20-2014 National Score (1-10 0), lower number is lower risk 86 [facility] How hard is it for y ou to pay for the very basics like food, housing, medical care, and heating Not very hard [facility] Work Phone: (I/We) worried margarito er (my/our) food would run out before (I/we) got money to buy more. Sometimes true [facility] Work Phone: Tobacco smoking stat us MOIS Unknown if ever smoked [facility] Work Phone: Start: 09-02-2024 Sex Female (finding) [facility] Medical Equipment Procedure Code Equipment Code Equipment Origin al Text Equipment Identifier Dates Block Gmrs Small 10mm Augmentation Femoral Distal - [id number] Start: 03-19-2018 Cement Simplex P Bone Radiopaque Full Dose Sterile - [id number] Start: 06-06-2016 Comment on above: Description: simplex p bone cement Cement Simplex P Bone Radiopaque Full Dose Sterile - [id number] Start: 01-28-2017 Comment on above: Description: simplex p bone cement Cement Simplex P Tobramycin Bone Full Dose Radiopaque Preblend Sterile - [id number] Start: 03-19-2018 Eyr-Kp-Q-Kind Im plant - [id number] Start: 07-06-2017 Comment on above: Description: cancell ous screw Component Gmrs Polyethylene Femoral Pack Crosslink Knee - [id number]_imp Start: 03-19-2018 Stem Kinemax Clyde r 80mm Femoral Cement Knee - [id number] Start: 03-19-2018 Extension Kinema x Xs Cocr 40mm Stem Cemented Knee Femoral - [id number]_imp Start: 03-19-2018 Component Triath rafiq 5 Femoral Cemented Posterior Stabilize Knee Right - [id number] Start: 06-06-2016 Insert Triathlon 6 X3 13mm Tibial Posterior Stabilized Bearing Knee - [id number] Start: 06-06-2016 Component Triath rafiq 5 Femoral Cemented Posterior Stabilize Knee Left - [id number]_imp Start: 01-28-2017 Comment on above: Description: triathl on posterior stabilized femoral Insert Triathlon 5 X3 11mm Tibial Posterior Stabilized Bearing Knee - [id number]_imp Start: 01-28-2017 Comment on above: Description: triathl on tibial bearing insert - ps Insert Triathlon 6 X3 16mm Tibial Posterior Stabilized Bearing Knee - [id number] Start: 04-20-2017 Comment on above: Description: Tibial Bearing Insert-PS Insert Triathlon 6 X3 19mm Tibial Posterior Stabilized Bearing Knee - [id number] Start: 07-06-2017 Comment on above: Description: triathl on X3 tibial bearing insert - ps Restrictor Mediu m [place] Cement Disposable Shellfish Shucker Distal - [id number]_imp Start: 03-19-2018 Restrictor Mediu m [place] Cement Disposable Shellfish Shucker Distal - [id number]_imp Start: 03-19-2018 Component Xs Sma ll Medium Tibial Rotate Hinge Knee - [id number]_imp Start: 03-19-2018 Axle Femoral Mod ular Rotate Hinge Knee - [id number]_imp Start: 03-19-2018 Wedge Duracon S2 Full 10mm Tibial Revision Knee - [id number]_imp Start: 03-19-2018 Insert Gmrs Thk1 3mm S1 S2 Tibial Modular Rotate Hinge Proximal - [id number]_imp Start: 03-19-2018 Bushing Femoral Modular Rotate Hinge Knee - [id number]_imp Start: 11-06-2019 Insert Gmrs Neut ral Bumper Modular Rotate Hinge Knee Proximal - [id number] Start: 11-06-2019 Sleeve Tibial Mo dular Rotate Hinge Knee - [id number] 198602_imp Start: 11-06-2019 Insert Gmrs Thk1 3mm S1 S2 Tibial Modular Rotate Hinge Proximal - [id number]_imp Start: 11-06-2019 Axle Femoral Mod ular Rotate Hinge Knee - [id number] _imp Start: 11-06-2019 Component Xs Sma ll Medium Tibial Rotate Hinge Knee - [id number]_imp Start: 11-06-2019 Bushing Femoral Modular Rotate Hinge Knee - [id number] _imp Start: 11-06-2019 [place] Femoral Modular Rotate Hinge Knee - [id number]_imp Start: 12-19-2020 [place]ushing Femoral Modular Rotate Hinge Knee - [id number]_imp Start: 12-19-2020 Component Xs Sma ll Medium Tibial Rotate Hinge Knee - [id number]_imp Start: 12-19-2020 Insert Gmrs Thk1 3mm S1 S2 Tibial Modular Rotate Hinge Proximal - [id number]_imp Start: 12-19-2020 Sleeve Tibial Mo dular Rotate Hinge Knee - [id number]_imp Start: 12-19-2020 Insert Gmrs Neut ral Bumper Modular Rotate Hinge Knee Proximal - [id number]_imp Start: 12-19-2020 Axle Femoral Mod ular Rotate Hinge Knee - [id number]_imp Start: 12-19-2020 Component Triath rafiq 32mm Asymmetric X3 10mm Patellar Knee - [id number]_imp Start: 06-06-2016 Component Triath rafiq 32mm Asymmetric X3 10mm Patellar Knee - [id number] [id number]_imp Start: 01-28-2017 Comment on above: Description: triathl on X3 asymmetric patella Component Gmrs M edium 98v18ii Femoral Modular Rotate Hinge Knee Left - [id number] 1585928_imp Start: 03-19-2018 Component Gmrs S mall Titanium 86j38tf Femoral Modular Rotate Hinge Knee - [id number] 1585940_imp Start: 03-19-2018 Mesh Marlex Polypropylene 87m27nn Surgical Patch Flat Sheet Knit Hernia - [id number]_imp Start: 07-06-2017 Comment on above: Description: bard me sh Mesh Marlex Polypropylene 53c21ka Surgical Patch Flat Sheet Knit Hernia - [id number] 1585944_imp Start: 03-19-2018 Baseplate Triath rafiq 6 Tibial Primary Cement Knee - [id number]_imp Start: 06-06-2016 Baseplate Triath rafiq 5 Tibial Primary Cement Knee - [id number] [id number] Start: 01-28-2017 Comment on above: Description: triathl on primary tibial baseplate Baseplate S2 Tib ial Modular Rotate Hinge Knee - [id number]_imp Start: 03-19-2018 Washer 6.5 / 8.0 mm Asnis 3 - [id number]_imp Start: 07-06-2017 Comment on above: Description: washer CHRISTINA CHECK Functional Status Date Assessment Result Facility 01-08-2021 Are you deaf, or do you have serious difficulty hearing No 01/08/2021 2:54 PM EDT Turner Patten, MUSHTAQ No [facility] 01-08-2021 Are you blind, or do you have serious difficulty seeing, even when wearing glasses No 01/08/2021 2:54 PM EDT Turner Patten, MUSHTAQ No [facility] 01-08-2021 Do you have serious difficulty walking or climbing stairs Yes 01/08/2021 2:54 PM EDT Turner Patten, RN Yes [facility] 01-08-2021 Do you have difficul ty dressing or bathing Yes 01/08/2021 2:54 PM EDT Turner Patten, RN Yes [facility] 01-08-2021 Because of a physica l, mental, or emotional condition, do you have difficulty doing errands alone such as visiting a physician's office or shopping Yes 01/08/2021 2:54 PM EDT Turner Patten, RN Yes [facility] Mental Status Date Assessment Result Facility 01-08-2021 Because of a physica l, mental, or emotional condition, do you have serious difficulty concentrating, remembering, or making decisions No 01/08/2021 2:54 PM EDT Turner Patten, MUSHTAQ No [facility] Clinical Notes 11-26-2017 to 02-02-2025 Telephone Encounter - Carlos Mei APRN.BENJAMIN - 02/02/2025 11:15 AM EDTTelephone Encounter - Carlos Mei APRN.CNP - 02/02/2025 11:15 AM EDTTelephone Encounter - Yudi Pak - 02/12/2023 3:22 PM EDT Note Date & Type Note Facility 02-02-2025 Telephone encounter Note Rx sent. Carlos Mei APRN.BENJAMIN Requested Prescriptions Signed Prescriptions Disp Refills albuterol HFA (PROVENTIL HFA) 90 mcg/actuation inhaler 1 each 0 Sig: Inhale 2 puffs as instructed every 6 hours as needed. Authorizing Provider: CARLOS MEI Pharmacy Information Pharmacy Address Telephone [facility] [address] [place] [address] [facility] 02-02-2025 Miscellaneous Notes Rx sent. Carlos Mei APRN.BENJAMIN Requested Prescriptions Signed Prescriptions Disp Refills albuterol HFA (PROVENTIL HFA) 90 mcg/actuation inhaler 1 each 0 Sig: Inhale 2 puffs as instructed every 6 hours as needed. Authorizing Provider: CARLOS MEI Pharmacy Information Pharmacy Address [facility]phone [facility] [address] Charlie is a patient of Moreno Oates MD today Tamra Nurse from [facility] called to request a rescue inhaler for this patient. She stated she texted Dr. Oates who told her to call the office for the request. Please send to [facility]. Patient has been identified by name and birthdate. Was an appointment scheduled: No Closing statement: Results or non-symptom based questions: Thank you for calling [facility], your call will be returned within the next business day. Hoda Fisher Pss documented in this encounter [facility] 02-02-2025 Telephone encounter Note Charlie is a patient of Moreno Oates MD today Tamar Nurse from [facility] called to request a rescue inhaler for this patient. She stated she texted Dr. Oates who told her to call the office for the request. Please send to [facility]. Patient has been identified by name and birthdate. Was an appointment scheduled: No Closing statement: Results or non-symptom based questions: Thank you for calling [facility], your call will be returned within the next business day. Hoda Fisher Pss [facility] 01-13-2025 Telephone encounter Note The following approved medication [...] 30 days. Authorizing Provider: MORENO OATES MD [facility] 01-13-2025 Miscellaneous Notes The following approved medication requests [...] MORENO OATES MD documented in this encounter [facility] 01-12-2025 Telephone encounter Note Re[facility]. Placed in provider's inbox for review. Route to MA scanning [facility] 01-12-2025 Miscellaneous Notes Received lab results from [facility]. Placed in provider's inbox for review. Route to MA scanning documented in this encounter [facility] 12-15-2024 Telephone encounter Note Received lab results from [facility]. Placed in provider's inbox for review. Route to MA scanning [facility] 12-15-2024 Miscellaneous Notes Received lab results from [facility]. Placed in provider's inbox for review. Route to MA scanning documented in this encounter [facility] 12-15-2024 Telephone encounter Note Pt at [facility] The following approved medication requests have [...] 30 days. Authorizing Provider: MORENO OATES MD [facility] 12-15-2024 Miscellaneous Notes Pt at [facility] The following approved medication requests have [...] MORENO OATES MD documented in this encounter [facility] 12-07-2024 Telephone encounter Note Natalia aware of PT order from Dr Oates [facility] 12-07-2024 Miscellaneous Notes Natalia aware of PT [...] AND present > 4 weeks) Protocols used: [id number] Natalia from [facility] calling updating that patient is having neck pain (9 out of 10). Neck pain is causing headaches. Patient has been identified by name and birthdate. Duration of symptoms: few days Please return call to [facility] and ask for the "300 nurse". Please call [phone] Was an appointment scheduled: No Closing statement: Symptom Call: Thank you for calling [facility], your call is very important. A nurse will call in approximately 2-4 hours during business hours. If this is an emergency, please contact 911. Mary Jo Genao documented in this encounter [facility] 12-07-2024 Telephone encounter Note Recommend physical therapy eval and treat. Moreno Oates MD [facility] 12-07-2024 Telephone encounter Note Spoke with nurse Massiel - not currently with patient Pt informed her this morning that symptoms started a few days ago: Left sided neck pain Making headaches worse Taking percocet 4x a day Q6 Lyrica BID Tylenol PRN / pain Headaches are not new - just worse Denies falls/known injury Denies visual changes, neuro concerns Reason for Disposition Headache is a chronic symptom (recurrent or ongoing AND present > 4 weeks) Protocols used: [id number] [facility] 12-07-2024 Telephone encounter Note Natalia from [facility] calling updating that patient is having neck pain (9 out of 10). Neck pain is causing headaches. Patient has been identified by name and birthdate. Duration of symptoms: few days Please return call to [facility] and ask for the "300 nurse". Please call [phone] Was an appointment scheduled: No Closing statement: Symptom Call: Thank you for calling [facility], your call is very important. A nurse will call in approximately 2-4 hours during business hours. If this is an emergency, please contact 911. Mary Jo Genao [facility] 11-18-2024 Telephone encounter Note The following approved [...] 30 days. Authorizing Provider: MORENO OATES MD [facility] 11-18-2024 Miscellaneous Notes The following approved medication [...] MORENO OATES MD documented in this encounter [facility] 11-10-2024 Telephone encounter Note [facility] patient. Medications will 11/13/2024 [facility] 11-10-2024 Miscellaneous Notes [facility] patient. Medications will 11/13/2024 documented in this encounter [facility] 10-20-2024 Note Hospitalist Discharg e Summary Charlie [...] Complexity: follow up within 7-14 calendar days (28063) [x] Severe Complexity: follow up within 7 calendar days (18829) Follow up Testing, Pending results or Referrals [...] discharge instructions from (more content not included)... [facility] 10-20-2024 Note PHYSICAL THERAPY [facility] Initial Evaluation Name/MRN: Charlie Nguyen ([id number]) Evaluation Date: 10/20/2024 Date of : 1955 Admission Date: 10/17/2024 12:22 PM Age: 69 y.o. Room/Bed: B2-256/B2-256 A Discharge Recommendation: ECF with PT, [facility] Facility Assessment IMPRESSION: Pt is a 69yo female admitted to ED on 10/17 from [facility] with complaints of AMS and fever. Staff reports pt has been hallucinating. Pt found to have UTI. Prior to admission, pt lived at [facility] for ~3 years. Pt states she [...] independence in functional mobility. Recommend return to [facility] with PT at discharge. Admitting Diagnosis: UTI [...] Contusion of right knee 02/03/2020 Benzodiazepine dependence ([facility]) 01/31/2020 Generalized weakness 01/27/2020 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[facility]) 11/04/2019 Intentional drug overdose ([facility]) 10/25/2019 Aspiration pneumonia (CMS/HCC) ([facility]) 10/25/2019 Drug overdose, multiple drugs, accidental or unintentional, initial encounter 10/25/2019 Palliative care encounter 10/20/2019 Unspecified mood (affective) disorder ([facility]) 10/12/2019 Acute respiratory failure with hypoxia ([facility]) 10/08/2019 Hypertension 03/26/2015 Chronic nonintractable headache 03/26/2015 Glioma ([facility]) 02/08/2015 Migraine 12/11/2014 Internal derangement of right [...] edge of b (more content not included)... [facility] 10-19-2024 Note [facility] Respiratory Care Department Progress Note Comment [...] Respiratory in the care of this patient, [facility] 10-19-2024 Note Hospitalist Progress Note 10/19/2024 [phone]: Please page me ([phone]) for patient care issues. [phone]: Please page [facility] Hospitalist for any issues. Subjective: Admit Date: [...] chronic hypoxic respiratory failure who resides at [facility] facility presenting for several days of [...] Contact: Vicente Driscoll Mobile Relation: Daughter Red GuidryDO Division [facility] PAGER: Mark chat [1] Past Medical History: Diagnosis Date [...] 100 mg, Oral, (more content not included)... [facility] 10-19-2024 Note Patient sleeping com fortably, will attempt smoking cessation counseling at a later time. [facility] 10-18-2024 Note Hospitalist Progress Note 10/18/2024 [phone]: Please page me ([phone]) for patient care issues. [phone]: Please page [facility] night Hospitalist for any issues. Subjective: Admit Date: 10/17/2024 PCP: Moreno Oates Room#: B2256/B2-970 A Interval History: patient admitted for AMS. [...] DO Division of Hospitalist Medicine Inpatient Medical Services/[facility] PAGER: [email or web address] chat [1] Past Medical History: Diagnosis Date [...] Oral, Nightly pregabalin, 100 mg, Oral, BID [facility] 10-18-2024 Note SNF Return Referral placed to [place] [facility] per T[facility] request. Awaiting review and response regarding ability to accept. TCC notified. [facility] 10-17-2024 Note Attending History an d [...] have . Patient currently resides in [place] [facility] [place] and staff were concerned regarding patient developing [...] Resource Strain: Low Risk (11/05/2019) Received from [facility] Overall Financial Resource Strain (CARDIA) Difficulty of Paying Living Expenses: Not very hard Food Insecurity: Food Insecurity Present (11/05/2019) Received from [facility] Hunger Vital Sign Worried About Running Out of Food in the Last Year: Sometimes true Ran Out of Food in the Last Year: Sometimes true Transportation Needs: No Transportation Needs (11/05/2019) Received from [facility] PRAPARE - Transportation Lack of Transportation [...] present. Mental S (more content not included)... [facility] 10-14-2024 Telephone encounter Note [facility] patient. The following approved medication requests [...] 30 days. Authorizing Provider: MORENO OATES MD [facility] 10-14-2024 Miscellaneous Notes [facility] patient. The following approved medication requests [...] MORENO OATES MD documented in this encounter [facility] 09-16-2024 Telephone encounter Note Pt resides at [facility] The following approved medication requests have [...] 30 days. Authorizing Provider: MORENO OATES MD [facility] 09-16-2024 Miscellaneous Notes Pt resides at [facility] The following approved medication requests have [...] MORENO OATES MD documented in this encounter [facility] 08-18-2024 Telephone encounter Note The following [...] 30 days. Authorizing Provider: MORENO OATES MD [facility] 08-18-2024 Miscellaneous Notes The following approved [...] MORENO OATES MD documented in this encounter [facility] 07-22-2024 Telephone encounter Note shelter patient. [facility] 07-22-2024 Miscellaneous Notes shelter patient. documented in this encounter [facility] 07-18-2024 Telephone encounter Note Received 07/18/2024 from [facility]. Placed in provider's inbox for review. Route to DE for scanning. [facility] 07-18-2024 Miscellaneous Notes Received 07/18/2024 from [facility]. Placed in provider's inbox for review. Route to DE for scanning. documented in this encounter [facility] 06-23-2024 Telephone encounter Note The following [...] 30 days. Authorizing Provider: MORENO OATES MD [facility] 06-23-2024 Miscellaneous Notes The following approved [...] MORENO OATES MD documented in this encounter [facility] 05-24-2024 Telephone encounter Note The following [...] 30 days. Authorizing Provider: MORENO OATES MD [facility] 05-24-2024 Miscellaneous Notes The following approved [...] MORENO OATES MD documented in this encounter [facility] 04-22-2024 Telephone encounter Note The following approved medication requests have been transmitted electronically. Requested Prescriptions Signed Prescriptions Disp Refills diazePAM (VALIUM) 5 mg tablet 60 tablet 0 Sig: Take 1 tablet by mouth two times a day for 30 days. Authorizing Provider: MORENO OATES MD [facility] 04-22-2024 Miscellaneous Notes The following approved medication requests have been transmitted electronically. Requested Prescriptions Signed Prescriptions Disp Refills diazePAM (VALIUM) 5 mg tablet 60 tablet 0 Sig: Take 1 tablet by mouth two times a day for 30 days. Authorizing Provider: MORENO OATES MD Received refill request from [facility]. Pended please advise. documented in this encounter [facility] 04-22-2024 Telephone encounter Note The following approved medication requests have been transmitted electronically. [facility] pt Requested Prescriptions Signed Prescriptions Disp Refills oxyCODONE-acetaminophen (PERCOCET) 5-325 mg tablet 120 tablet 0 Sig: Take 1 tablet by mouth every 6 hours for 30 days. Authorizing Provider: MORENO OATES pregabalin (LYRICA) 150 mg capsule 60 capsule 0 Sig: Take 1 capsule by mouth two times a day for 30 days. Authorizing Provider: MORENO OATES MD [facility] 04-22-2024 Miscellaneous Notes The following approved medication requests have been transmitted electronically. [facility] pt Requested Prescriptions Signed Prescriptions Disp Refills oxyCODONE-acetaminophen (PERCOCET) 5-325 mg tablet 120 tablet 0 Sig: Take 1 tablet by mouth every 6 hours for 30 days. Authorizing Provider: MORENO OATES pregabalin (LYRICA) 150 mg capsule 60 capsule 0 Sig: Take 1 capsule by mouth two times a day for 30 days. Authorizing Provider: MORENO OATES MD documented in this encounter [facility] 04-21-2024 Telephone encounter Note Received refill request from [facility]. Pended please advise. [facility] 04-12-2024 Telephone encounter Note Received from [facility]. Placed in provider's inbox for review. Route to DE for scanning. [facility] 04-12-2024 Miscellaneous Notes Received from [facility]. Placed in provider's inbox for review. Route to [place] for scanning. documented in this encounter [facility] 03-31-2024 Telephone encounter Note Patient's request [...] two times a day for 30 days. [facility] 03-31-2024 Miscellaneous Notes Patient's request for [...] request from [facility] documented in this encounter [facility] 03-31-2024 Telephone encounter Note Rx request from [facility] 03-25-2024 Telephone encounter Note The following [...] 30 days. Authorizing Provider: MORENO OATES MD [facility] 03-25-2024 Miscellaneous Notes The following approved [...] MORENO OATES MD documented in this encounter [facility] 03-24-2024 Telephone encounter Note The following approved medication requests have been transmitted electronically. Requested Prescriptions Signed Prescriptions Disp Refills diazePAM (VALIUM) 5 mg tablet 60 tablet 0 Sig: Take 1 tablet by mouth two times a day for 30 days. Authorizing Provider: MORENO OATES MD [facility] 03-24-2024 Miscellaneous Notes The following approved medication requests have been transmitted electronically. Requested Prescriptions Signed Prescriptions Disp Refills diazePAM (VALIUM) 5 mg tablet 60 tablet 0 Sig: Take 1 tablet by mouth two times a day for 30 days. Authorizing Provider: MORENO OATES MD Refill request from [facility], pended. documented in this encounter [facility] 03-24-2024 Telephone encounter Note Refill request from [facility], pended. [facility] 03-17-2024 Telephone encounter Note Received orders from [facility]. Placed in provider's inbox for review. Route to MA fax [facility] 03-17-2024 Miscellaneous Notes Received orders from [facility]. Placed in provider's inbox for review. Route to [place] fax documented in this encounter [facility] 03-10-2024 Telephone encounter Note Received outside lab results from [facility]. Placed in provider's inbox for review. Route to MA scanning [facility] 03-10-2024 Miscellaneous Notes Received outside lab results from [facility]. Placed in provider's inbox for review. Route to MA scanning documented in this encounter [facility] 02-26-2024 Telephone encounter Note [facility] patient. . [...] 30 days. Authorizing Provider: MORENO OATES MD [facility] 02-26-2024 Miscellaneous Notes [facility] patient. . [...] MORENO OATES MD documented in this encounter [facility] 01-28-2024 Telephone encounter Note [facility] [place] patient Requested Prescriptions Signed Prescriptions Disp Refills oxyCODONE-acetaminophen (PERCOCET) 5-325 mg tablet 120 tablet 0 Sig: Take 1 tablet by mouth every 6 hours for 30 days. Authorizing Provider: MORENO OATES pregabalin (LYRICA) 150 mg capsule 60 capsule 0 Sig: Take 1 capsule by mouth two times a day for 30 days. Authorizing Provider: MORENO OATES [facility] 01-28-2024 Miscellaneous Notes [facility] patient Requested Prescriptions Signed Prescriptions Disp [...] 2024 3:29 PM documented in this encounter [facility] 01-27-2024 Telephone encounter Note Prescription Refill [...] Gaviria LPN January 27, 2024 3:29 PM [facility] 12-30-2023 Telephone encounter Note The following [...] 30 days. Authorizing Provider: MORENO OATES MD [facility] 12-30-2023 Miscellaneous Notes The following approved [...] for 30 days. Nurse called [facility] to request. oHda Lewis December 29, 2023 4:56 PM documented in this encounter [facility] 12-30-2023 Telephone encounter Note Prescription Refill [...] Gaviria LPN December 30, 2023 9:55 AM [facility] 12-30-2023 Miscellaneous Notes Prescription Refill Information [...] 2023 9:55 AM documented in this encounter [facility] 12-29-2023 Telephone encounter Note Charlie is calling Moreno Oates MD today [facility] Nurse from [facility] called to request this medication, not on current list: Disp Refills Start End diazePAM (VALIUM) 5 mg tablet 60 tablet 0 11/27/2023 12/27/2023 Sig: Take 1 tablet by mouth two times a day for 30 days. Sent to pharmacy as: diazePAM (VALIUM) 5 mg tablet Class: Normal Route: ORAL Order: [id number] E-Prescribing Status: Receipt confirmed by pharmacy (11/27/2023 2:31 PM EDT) Please send to [facility]. Patient has been identified by name and birthdate. Duration of symptoms: N/A Was an appointment scheduled: No Closing statement: Results or non-symptom based questions: Thank you for calling [facility], your call will be returned within the next business day. Hoda Lewis [facility] 12-29-2023 Miscellaneous Notes Charlie is calling MD charlene Platt [facility] Nurse from [facility] called to request this medication, not on current list: Disp Refills Start End diazePAM (VALIUM) 5 mg tablet 60 tablet 0 11/27/2023 12/27/2023 Sig: Take 1 tablet by mouth two times a day for 30 days. Sent to pharmacy as: diazePAM (VALIUM) 5 mg tablet Class: Normal Route: ORAL Order: [id number] E-Prescribing Status: Receipt confirmed by pharmacy (11/27/2023 2:31 PM EDT) Please send to [facility]. Patient has been identified by name and birthdate. Duration of symptoms: N/A Was an appointment scheduled: No Closing statement: Results or non-symptom based questions: Thank you for calling [facility], your call will be returned within the next business day. Hoda Lewis documented in this encounter [facility] 12-29-2023 Telephone encounter Note Prescription Refill [...] for 30 days. Nurse called [facility] the [place] to request. Hoda Lewis December 29, 2023 4:56 PM [facility] 11-27-2023 Telephone encounter Note Pt at [facility]. The following approved medication requests have [...] 30 days. Authorizing Provider: MORENO OATES MD [facility] 11-27-2023 Miscellaneous Notes Pt at [facility]. The following approved medication requests have [...] MORENO OATES MD documented in this encounter [facility] 10-28-2023 Telephone encounter Note shelter patient. The following approved medication requests have [...] phone, fax) Pharmacy Information Pharmacy Address Telephone [place] [phone] Moreno Oates MD [facility] 10-28-2023 Miscellaneous Notes shelter patient. The following approved medication requests have [...] phone, fax) Pharmacy Information Pharmacy Address Telephone [place] [place] [address] Moreno Oates MD Pharmacy verified in [facility] Patient has been identified by name [...] Fadumo Rahman LPN documented in this encounter [facility] 10-27-2023 Telephone encounter Note Pharmacy verified in [facility] Patient has been identified by name [...] Not applicable Please advise. Fadumo Rahman LPN [facility] 10-12-2023 Telephone encounter Note Received lab results from [facility]. Placed in provider's inbox for review. Route to MA scanning [facility] 10-12-2023 Miscellaneous Notes Received lab results from [facility]. Placed in provider's inbox for review. Route to MA scanning documented in this encounter [facility] 10-08-2023 Telephone encounter Note The following [...] To back Authorizing Provider: MORENO OATES MD [facility] 10-08-2023 Miscellaneous Notes The following approved [...] Rx request, pended documented in this encounter [facility] 10-07-2023 Telephone encounter Note Rx request, pended [facility] 09-25-2023 Telephone encounter Note [facility] patient. The following approved medication requests [...] MORENO OATES Pharm[facility] Information [facility] [address] Moreno Oates MD [facility] 09-25-2023 Miscellaneous Notes [facility] patient. The following approved medication requests [...] MORENO OATES Pharmacy Information Pharmacy Address Telephone [address] [address] Moreno Oates MD documented in this encounter [facility] 09-11-2023 Telephone encounter Note The following approved medication requests have been transmitted electronically. Requested Prescriptions Signed Prescriptions Disp Refills ondansetron (ZOFRAN) 8 mg tablet 90 tablet 5 Sig: Take 1 tablet by mouth every 8 hours as needed for nausea/vomiting. Authorizing Provider: MORENO OATES Pharmacy Information Pharmacy Address [address] [address] Moreno Oates MD [facility] 09-11-2023 Miscellaneous Notes The following approved medication requests have been transmitted electronically. Requested Prescriptions Signed Prescriptions Disp Refills ondansetron (ZOFRAN) 8 mg tablet 90 tablet 5 Sig: Take 1 tablet by mouth every 8 hours as needed for nausea/vomiting. Authorizing Provider: MORENO OATES Pharmacy Information Pharmacy Address Telephone [address] [address] Moreno Oates MD documented in this encounter [facility] 08-11-2023 Miscellaneous Notes Received lab results from [facility]/ [facility]. Placed in provider's inbox for review. Route to DE scanning documented in this encounter [facility] 07-31-2023 Miscellaneous Notes [facility] The following approved medication requests have been transmitted electronically. Requested Prescriptions Signed Prescriptions Disp Refills oxyCODONE-acetaminophen (PERCOCET) 5-325 mg tablet 120 tablet 0 Sig: Take 1 tablet by mouth every 6 hours for 30 days. Authorizing Provider: MORENO OATES MD documented in this encounter [facility] 07-30-2023 Miscellaneous Notes Pt at [facility]. Seen by Dr Oates in facility [...] MORENO OATES MD documented in this encounter [facility] 05-11-2023 Miscellaneous Notes Received 05/11/2023 from [facility]. Placed in provider's inbox for review. Route to [place] for scanning. documented in this encounter [facility] 04-29-2023 Miscellaneous Notes Pt at [facility], due for refills. The following approved [...] MORENO OATES MD documented in this encounter [facility] 04-13-2023 Miscellaneous Notes Received 04/13/2023 from [facility]. Placed in provider's inbox for review. Route to [place] for scanning. documented in this encounter [facility] 04-07-2023 Miscellaneous Notes Relayed message to Tamar. She said she would check and patients supply. Tamar, nurse for this patient, returned call. Please call her back at [phone]. LM for nurse at [facility]. Let pharmacy know these Rx's were sent last week Moreno Oates MD Received order requests from [facility] for diazepam and oxycodone APAP. Placed in provider's inbox to review. documented in this encounter [facility] 03-30-2023 Miscellaneous Notes The following approved [...] MORENO OATES MD documented in this encounter [facility] 02-13-2023 Miscellaneous Notes Spoke to Ginny [...] as above. Please process accordingly. Lou Davis APRN.DOCK HAND See below, per Yoly, nurse at the [...] my name is Yoly I'm calling from [facility] facility. Phone number is [phone]. Calling in regards to a Charlie Nguyen [...] Protocols used: Information Only Call - No [id number] documented in this encounter [facility] 02-12-2023 Miscellaneous Notes Received lab results from [facility]. Placed in provider's inbox for review. Route to MA scanning. documented in this encounter [facility] 02-12-2023 Miscellaneous Notes Spoke with Lovely at [facility]. Relayed message below. Verbalized understanding with no further questions or concerns. Yudi Pak Lovely, Nurse from the [facility] where the patient lives is calling back. Please call her again [phone]. Please call more than one time, she [...] regular Percocet. Moreno Oates MD [place] with [facility] calling today asking for stronger tylenol. Patient is requesting 1000 mg. Cheyenne is also updating that the patient is on percocet as well. Please return call if appropriate [phone] documented in this encounter [facility] 01-31-2023 Miscellaneous Notes The following approved [...] MORENO OATES MD documented in this encounter [facility] 01-31-2023 Miscellaneous Notes The following approved [...] needs Dr Oates's signature and faxed to [facility] pharmacy. documented in this encounter [facility] 01-26-2023 Miscellaneous Notes Received 01/26/[address] [facility]. Placed in provider's inbox for review. Route to [place] for scanning. documented in this encounter [facility] 01-13-2023 Miscellaneous Notes Received clarification request from [facility]. Placed in provider's inbox for review. Route to [place] fax documented in this encounter [facility] 01-12-2023 Miscellaneous Notes Received lab results from [facility]/ [facility]. Placed in provider's inbox for review. Route to MA scanning. documented in this encounter [facility] 01-01-2023 Miscellaneous Notes The following approved [...] urgent request for refills via fax from [facility]. Placed in provider's inbox for review. Route to DE e scribe [facility] Pended. documented in this encounter [facility] 12-31-2022 Miscellaneous Notes Received 12/31/2022 from [facility]. Placed in provider's inbox for review. Route to [place] for scanning documented in this encounter [facility] 12-29-[address] Oates placed call to the [place] approving the orders recommended. Moreno Oates MD Please review and advise. Hey good afternoon my name is Zari Segovia nurse practitioner with [employer] [employer]. Phone number [phone]. I'm calling in regards to patient Charlie Reyes. Her date of is 1955. She is a resident at [facility]. Calling Charile has a mildly low pulse ox of [...] like you can return my call at [phone]. Thank you so much. Galindo madrid." Reason for Disposition [1] Follow-up call to recent contact AND [2] information only call, no triage required Protocols used: Information Only Call - No [id number] documented in this encounter [facility] 12-16-2022 Miscellaneous Notes Received consultation visit summary from [facility]. Placed in provider's inbox for review. Route to MA scanning. documented in this encounter [facility] 12-01-2022 Miscellaneous Notes Refills sent on 11/26. Vaughn Montes De Oca MD [facility] office in [place] requesting orders for patient's oxycodone/APAP and diazepam. PCP out of office - I faxed the orders over to covering providers in [place]. Can anyone sign the orders for patient's refills? documented in this encounter [facility] 11-21-2022 Miscellaneous Notes No change faxed to [facility]. documented in this encounter [facility] 11-17-2022 Emergency department Note Report called to SNF. Kelvin Grajeda RN 11/17/22 1400 [facility] 11-17-2022 Emergency department Note Report called to [...] with Leg Swelling Pt brought in by [facility] for swelling in her L ankle [...] She is currently on Eliquis. Sent by [facility] via EMS to rule out DVT. She currently denies any shortness of breath and was not previously on supplemental oxygen. Nursing Notes were reviewed. Limitations to history: None Outside historians: None REVIEW OF SYSTEMS Review of Systems Pertinent positives and negatives as per HPI PAST MEDICAL HISTORY Past Medical History: Diagnosis Date Anxiety Benign neoplasm of brain (HCC) Brain tumor ([facility]) 02/01/2015 Found small tumor, has appt with neurologist in May Chronic back pain Chronic pain syndrome Cognitive communication deficit COVID-19 Depression GERD (gastroesophageal reflux disease) Headache Hypertension Ischemic colitis (HCC) MRSA (methicillin resistant Staphylococcus aureus) MS (multiple sclerosis) ([facility] ([facility]) Schizoaffective disorder ([facility]) ([facility]) Tobacco use SURGICAL HISTORY Past Surgical History: [...] Culture. Procedure Abnormality Status --------- ------ Complete Urinalysis[[id number]] Please view results for these tests on [...] 12:20:12 PM PATIENT REFERRED TO: Moreno Oates [address] [place] [id number] Schedule an appointment as soon as possible [...] DO 11/17/22 1648 documented in this encounter [facility] 11-17-2022 Emergency department Note Physicians ETA 15 min Carlos Castano RN 11/17/22 1359 [facility] 11-17-2022 Emergency department Note Oxygen via [place] off since 1250 to see if able to tolerate RA. Kelvin Grajeda RN 11/17/22 1308 [facility] 11-17-2022 Physician Emergency department Note EMERGENCY DEPARTMENT ENCOUNTER Pt Name: Charlie Nguyen Birthdate 1955 Date of evaluation: 11/17/2022 ED Provider: Marc Goodman DO CHIEF COMPLAINT Chief Complaint Patient presents with Leg Swelling Pt brought in by [facility] for swelling in her L ankle [...] She is currently on Eliquis. Sent by [facility] via EMS to rule out DVT. She currently denies any shortness of breath and was not previously on supplemental oxygen. Nursing Notes were reviewed. Limitations to history: None Outside historians: None REVIEW OF SYSTEMS Review of Systems Pertinent positives and negatives as per HPI PAST MEDICAL HISTORY Past Medical History: Diagnosis Date Anxiety Benign neoplasm of brain (HCC) Brain tumor ([facility]) 02/01/2015 Found small tumor, has appt with neurologist in May Chronic back pain Chronic pain syndrome Cognitive communication deficit COVID-19 Depression GERD (gastroesophageal reflux disease) Headache Hypertension Ischemic colitis ([facility]) MRSA (methicillin resistant Staphylococcus aureus) MS (multiple sclerosis) ([facility] ([facility]) Schizoaffective disorder ([facility] ([facility]) Tobacco use SURGICAL HISTORY Past Surgical History: [...] Culture. Procedure Abnormality Status --------- ------ Complete Urinalysis[[id number]] Please view results for these tests on [...] 12:20:12 PM PATIENT REFERRED TO: Moreno Oates [address] [place] [address] Schedule an appointment as soon as possible [...] Emergency Medicine Provider Marc Goodman DO 11/17/22 0850 [facility] 11-06-2022 Miscellaneous Notes Received 11/06/2022 from [facility] ([place]). Placed in provider's inbox for review. Route to [place] for faxing documented in this encounter [facility] 10-10-2022 Miscellaneous Notes Received Rx request from [facility] / [facility] for meds she has had [...] Moreno Oates MD documented in this encounter [facility] 10-01-2022 Miscellaneous Notes Pt in [place]. The following approved medication requests have been transmitted electronically. Requested Prescriptions Signed Prescriptions Disp Refills diazePAM (VALIUM) 5 mg tablet 60 tablet 0 Sig: Take 1 tablet by mouth twice daily for 30 days. Authorizing Provider: MORENO OATES MD documented in this encounter [facility] 09-24-2022 Miscellaneous Notes Seen in [place] today. Having worse headaches. Will try increased dose of Lyrica The following approved medication requests have been transmitted electronically. Requested Prescriptions Signed Prescriptions Disp Refills pregabalin (LYRICA) 150 mg capsule 60 capsule 0 Sig: Take 1 capsule by mouth twice daily for 30 days. Authorizing Provider: MORENO OATES MD documented in this encounter [facility] 09-19-2022 Miscellaneous Notes Fax sent to inform. Request for refill too early. These were filled by [facility] pharmacy on 08/27 and 08/29. Patient's [...] Moreno Oates MD documented in this encounter [facility] 09-05-2022 Miscellaneous Notes Patient's request for [...] example, phone, fax) These were filled by [facility]. On 08/27 and 08/29 respectively Moreno Oates MD documented in this encounter [facility] 08-29-2022 Miscellaneous Notes The following approved medication requests have been transmitted electronically. Requested Prescriptions Signed Prescriptions Disp Refills oxyCODONE-acetaminophen (PERCOCET) 5-325 mg tablet 120 tablet 0 Sig: Take 1 tablet by mouth every 6 hours for 30 days. Authorizing Provider: MORENO OATES Pharmacy Information Pharmacy Address Telephone [facility] [address] [place] [id number] [place]ptied to [place] Moreno Oates MD documented in this encounter [facility] 08-28-2022 Miscellaneous Notes Received lab results 08/28/22 from [facility]. Placed in provider's inbox for review. Route to [place] scanning. documented in this encounter [facility] 08-11-2022 History of Present illness Narrative Images from the original note were not included. Ortho Knee Follow Up Note Narrative Referring [facility] [address] PCP: Moreno Oates MD IMPRESSION/PLAN: 67 year [...] knee pain. She underwent LTKA with Dr. aTvares in 2017 who is now retired. She underwent revision [...] ambulate. 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 She reports most of the day she is sitting. She also continues to smoke, but states she cut back. She does not have PT any longer. She takes Percocet and Lyrica for pain symptoms. No new treatment needed. Contact the office with any new or concerning problems ACTIVE PROBLEM LIST Osteoarthritis of Right Knee Ms (Multiple Sclerosis) ([facility]) Essential Hypertension Lumbar Disc Herniation Current Smoker Knee Pain Primary Osteoarthritis of Left Knee Gastroesophageal Reflux Disease Without Esophagitis Headache S/P Total Knee Arthroplasty Extensor Tendon Disruption Knee Pain, Right S/P Revision of Total Knee, Right Rupture of Quadriceps Muscle Acute Deep Vein Thrombosis (Dvt) of Right Lower Extremity (Hcc) Acute Respiratory Failure With Hypoxia ([facility]) Chronic Pain Syndrome Chronic Prescription Benzodiazepine Use Chronic Prescription Opiate Use Repeat Prescription Issue Mechanical Complication of Internal Orthopedic Device, Implant Or Graft ([facility]) Failed Total Knee Arthroplasty ([facility]) Delirium Chronic Pain of Right Knee Hypotension History of Pulmonary Embolism Septic Arthritis (Hcc) Urinary Tract Infection Hypoxia Seizure ([facility]) Obesity, Class I, Bmi 30-34.9 Infection of Prosthetic Right Knee Joint ([facility]) Joint Infection ([facility]) Dysuria Septic Arthritis of Knee, Right (Hcc) [...] Debbie Batista PA-C documented in this encounter [facility] 07-30-2022 Miscellaneous Notes Received Notice of rule out for pasrr further review from [place] [employer]. Placed in provider's inbox for review. Route to ANA MARIA scanning. documented in this encounter [facility] 07-29-2022 Miscellaneous Notes The following approved [...] Provider: MORENO OATES MD Refill request from [facility] documented in this encounter [facility] 07-26-2022 Miscellaneous Notes Request completed and faxed to Yoly at [facility] fax #[phone] with confirmation of receipt. PDMP reviewed 1 month supply sent Faxed [facility] Placed on Dr. Clemons's desk for completion When signed fax to [facility] giselle Klein [phone] Still waiting for fax from Yoly, spoke to her again and had her send to another fax machine [facility] left message on RN line stating she faxed an order to PCP office asking for Percocet order. States she talked to Dr. Oates who advised he is out of town and to contact telephone instrument supervisor physician for order. She is going to fax the form to [place] for the covering physician to review. Patient [...] pain. MUSHTAQ Boyle called from [facility]. Patient needs this script filled as she only has 2 doses left. Please call Tamar at [phone] for any questions. Thank you. documented in this encounter [facility] 07-22-2022 Miscellaneous Notes Pt admitted at [facility]. PDMP website checked and validated. All [...] Moreno Oates MD Received refill request from [facility]. Refill pended. documented in this encounter [facility] 07-16-2022 Miscellaneous Notes Received lab results from [facility]. Placed in provider's inbox for review. Route to [place] scanning. documented in this encounter [facility] 07-06-2022 History of Present illness Narrative Rx's phoned in over weekend for Lyrica and diazepam. Moreno Oates MD documented in this encounter [facility] 07-05-2022 Miscellaneous Notes Received pt update regarding being lowered to the floor (not a fall) from [facility]. Placed in provider's inbox for review. Route to [place] scanning. documented in this encounter [facility] 06-25-2022 Miscellaneous Notes [facility] resident. The Rx was filled on 06/06. Sent approval for Rx's to be filled on 07/02 Received refill request from [facility]. Placed in provider's inbox for review. Route to [place] fax documented in this encounter [facility] 06-18-2022 Miscellaneous Notes Received med orders from [facility]. Placed in provider's inbox for review. Route to [place] fax documented in this encounter [facility] 06-12-2022 Note HNO ID: [id number] Author: BLAYNE Henderson Service: Radiology Author Type: [...] BLAYNE Henderson June 12, 2022 3:37 PM [facility] 06-12-2022 History of Present illness Narrative Radiology [...] 2022 3:37 PM documented in this encounter [facility] 05-22-2022 Miscellaneous Notes Received lab results from [facility]. Placed in provider's inbox for review. Route to MA scanning documented in this encounter [facility] 05-21-2022 History of Present illness Narrative Radiology Service Progress Note PATIENT NAME: Charlie Nguyen RADIOLOGY DEPARTMENT: General X-ray: Exam(s) Completed: Lower Extremity X-Ray(s): Knee, AP / Lat / Merchant Left PERIPHERAL IV DATA: Not applicable SIGNED BY: Bebe Stephens RT(R) May 21, 2022 1:10 PM documented in this encounter [facility] 05-21-2022 History of Present illness Narrative xr documented in this encounter [facility] 05-13-2022 Miscellaneous Notes The following approved [...] time. Please send in a new script. [facility] patient Check iwith 300 unit nurse , why are they requesting refill now, it was filled for 30 days on 04/26? Moreno Oates MD documented in this encounter [facility] 03-24-2022 Miscellaneous Notes Received request for pregabalin from [facility]. Placed in provider's inbox for review. Route to ANA MARIA fax documented in this encounter [facility] 03-18-2022 Miscellaneous Notes Orders faxed. [facility] asking that the mammogram orders be placed as soon as possible, as there is availability tomorrow for the testing to be done. Orders signed by Carlos Mejia APRN. Faxed to [facility] Received Mammogram order from [facility]. Placed in provider's inbox for review. Route to ANA MARIA fax documented in this encounter [facility] 03-17-2022 Miscellaneous Notes [facility] stated patient has upcoming appt with them. The need orders for bilateral diagnostic mammogram and unilateral US for left breast pain. Please fax to [phone] . documented in this encounter [facility] 03-11-2022 Miscellaneous Notes The following approved [...] MORENO OATES MD documented in this encounter [facility] 03-10-2022 Miscellaneous Notes Received lab results from [facility]. Placed in provider's inbox for review. Route to [place] scanning. documented in this encounter [facility] 03-10-2022 Miscellaneous Notes Received pharmacy orders from [facility]. Placed in provider's inbox for review. Route to [place] fax documented in this encounter [facility] 03-06-2022 Miscellaneous Notes Completed Request were sent with confirmation. ([phone] Forms placed in Ma's file. Form was signed and completed and placed in outbox Please fax back Thanks Type of letter/form/fax request - refill Form received from [facility] pharmacy Placed on MD desk () for completion. Completed form needs to be faxed to [phone]. Route to DE when form completed for processing documented in this encounter [facility] 02-13-2022 Miscellaneous Notes Received request for assessment of continued Nystatin from [facility]. Placed in provider's inbox for review. Route to [place] fax documented in this encounter [facility] 02-12-2022 Miscellaneous Notes Medication was refilled on 02/05/2022 Received refill request for diazepam 5mg tablets from [facility]. Faxed to covering provider pool. documented in this encounter [facility] 02-10-2022 Miscellaneous Notes Received labs from [facility]. Placed in provider's inbox for review. Route to [place] scanning. documented in this encounter [facility] 02-05-2022 Miscellaneous Notes Received pharmacy orders from [facility]. Placed in provider's inbox for review. Route to [place] fax documented in this encounter [facility] 01-07-2022 Miscellaneous Notes The following approved medication requests have been transmitted electronically. Requested Prescriptions Signed Prescriptions Disp Refills pregabalin (LYRICA) 100 mg capsule 60 capsule 0 Sig: Take 1 capsule by mouth twice daily for 30 days. Authorizing Provider: MORENO OATES MD documented in this encounter [facility] 12-30-2021 Miscellaneous Notes Received prescription request from [facility] pharmacy/ [facility]. Placed in provider's inbox for review. Route to [place] fax documented in this encounter [facility] 12-23-2021 Miscellaneous Notes Received pharmacy recommendation from [facility]. Placed in provider's inbox for review. Route to [place] fax documented in this encounter [facility] 12-23-2021 Miscellaneous Notes Received request for oxycodone 5-325 from [facility]. Placed in provider's inbox for review. Route to [place] fax documented in this encounter [facility] 12-09-2021 Miscellaneous Notes Received labs from [facility]. Placed in provider's inbox for review. Route to [place] scanning. documented in this encounter [facility] 12-03-2021 Miscellaneous Notes The following approved [...] No Authorizing Provider: MORENO OATES Pt in [facility]. She is seen monthly at facility Moreno Oates MD Last appointment: 12-12-19 Next appointment: na Pharmacy verified in [facility]. Refill(s) requested: Pending Prescriptions Disp Refills DIAZEPAM 5 MG TABLET 60 tablet 0 Sig: Take 1 tablet by mouth twice daily for 30 days. FABIOLA Class: C-IV LARISSA: No PREGABALIN 100 MG CAPSULE 60 capsule 0 Sig: Take 1 capsule by mouth twice daily for 30 days. FABIOLA Class: C-V LARISSA: No Order(s) pended. Please advise. Gabriela Castillo MA, [employer] documented in this encounter [facility] 11-25-2021 Miscellaneous Notes Fax sent. Received orders for Lyrica for PCP review and sign off from [facility] to be faxed to [facility]. Placed in provider's inbox for review. Route to [place] fax documented in this encounter [facility] 11-21-2021 Miscellaneous Notes Received fax from [facility] that Pt c/o yeast infection. [facility] would like to know if any new orders are needed? Route to fax. documented in this encounter [facility] 11-19-2021 Miscellaneous Notes The following approved medication requests have been transmitted electronically. Signed Prescriptions Disp Refills oxyCODONE-acetaminophen (PERCOCET) 5-325 mg tablet 120 tablet 0 Sig: Take 1 tablet by mouth four times daily as needed for pain. FABIOLA Class: C-II LARISSA: No Authorizing Provider: MORENO OATES MD [facility] Tamar calling in regards to patients prescription: OxyCodone 5-325 mg tablet Pharmacy contacted them stating they only received a partial script and need a full script from provider. Pharmacy stated it was not signed and that things are missing from script. Tamar said to call pharmacy if any questions: [facility] documented in this encounter [facility] 11-19-2021 Miscellaneous Notes Received refill request from [facility]. Fax sent advising medication has been e-prescribed. documented in this encounter [facility] 11-18-2021 Miscellaneous Notes faxed Med refill [facility] from [facility] for 4 tablets oxycodone 5-325 (pulled from starter box at [facility]). Placed in provider inbox for review. Route to fax. documented in this encounter [facility] 10-29-2021 Miscellaneous Notes The following approved medication requests have been transmitted electronically. Signed Prescriptions Disp Refills diazePAM (VALIUM) 5 mg tablet 60 tablet 0 Sig: Take 1 tablet by mouth twice daily for 30 days. FABIOLA Class: C-IV Authorizing Provider: MORENO OATES MD documented in this encounter [facility] 10-22-2021 Miscellaneous Notes Patient's request for [...] Fadumo Rahman LPN documented in this encounter [facility] 10-09-2021 Miscellaneous Notes Pt lives at [facility]. The following approved medication requests have been transmitted electronically. Signed Prescriptions Disp Refills diazePAM (VALIUM) 5 mg tablet 60 tablet 0 Sig: Take 1 tablet by mouth every 12 hours as needed for up to 30 days. FABIOLA Class: C-IV LARISSA: No Authorizing Provider: MORENO OATES [facility] [address] [place] [address] Moreno Oates MD documented in this encounter [facility] 10-08-2021 Miscellaneous Notes Received request for sign off for medication from [facility] pharmacy. Placed in provider's inbox for review. Route to [place] fax documented in this encounter [facility] 10-07-2021 Miscellaneous Notes Received labs from [facility]. Placed in provider's inbox for review. Route to [place] scanning. documented in this encounter [facility] 10-04-2021 Miscellaneous Notes [facility] pt. The following approved medication requests have been transmitted electronically. Pending Prescriptions Disp Refills PREGABALIN 100 MG CAPSULE 60 capsule 0 Sig: Take 1 capsule by mouth twice daily for 30 days. FABIOLA Class: C-V LARISSA: No Moreno Oates MD Pharmacy verified in [facility] Patient has been identified by name [...] Fadumo Rahman LPN documented in this encounter [facility] 09-27-2021 Miscellaneous Notes [facility] patient. documented in this encounter [facility] 08-27-2021 Miscellaneous Notes Addended by: SHAMIKA SILVEIRA on: 08/27/2021 01:58 PM Modules accepted: Orders Received 08/27/2021 from [facility]. Placed in provider's inbox for review. Route to [place] for faxing Order to be signed for Lyrica 100 mg BID documented in this encounter [facility] 08-26-2021 Miscellaneous Notes Pt at [facility], she's seen there monthly The following approved medication requests have been transmitted electronically. Signed Prescriptions Disp Refills diazePAM (VALIUM) 5 mg tablet 60 tablet 0 Sig: Take 1 tablet by mouth every 12 hours as needed for up to 30 days. FABIOLA Class: C-IV LARISSA: No Authorizing Provider: MORENO OATES MD Pharmacy verified in [facility] Patient has been identified by name [...] Shamika Silveira MA documented in this encounter [facility] 07-08-2021 Miscellaneous Notes Received 07/08/2021 from [facility] pharmacy. Placed in provider's inbox for review. Route to ANA MARIA for scanning and fax. documented in this encounter [facility] 01-15-2021 Hospital Discharge instructions Nehal Madden, - 01/15/2021 Please return to the ED for any fevers or shortness of breath. Otherwise resolved with your primary care physician as well as your orthopedic surgeon in the next few days. documented in this encounter [facility] Work Phone: 01-08-2021 Note HNO ID: [id number] Author: Jasen Ewing DO Service: Orthopaedic Surgery [...] none Musa: none DVT prophylaxis: restart home miller IPDs Pain control: multimodal Antibiotics: cefepime/vanc per ID PT/OT: ordered ID consulted, recs appreciated Medicine consulted, co-management appreciated NGTD on blood cultures Case Management for discharge planning: plan to return to SNF, anticipate today Ok to d/c from ortho standpoint Please contact the orthopedic resident telephone instrument supervisor with any questions or concerns. ACTIVE PROBLEM [...] DO 01/08/2021 7:50 AM Orthopedic Surgery Resident [id number] [facility] 01-07-2021 Note HNO ID: [id number] Author: Jasen Ewing DO Service: Orthopaedic Surgery [...] previously instructed Please contact the orthopedic resident telephone instrument supervisor with any questions or concerns. ACTIVE PROBLEM LIST Osteoarthritis of Right Knee Ms (Multiple Sclerosis) ([facility]) Essential Hypertension Lumbar Disc Herniation Current Smoker [...] Or Graft (Hcc) Failed Total Knee Arthroplasty ([facility]) Delirium Chronic Pain of Right Knee Hypotension History of Pulmonary Embolism Septic Arthritis (Hcc) Urinary Tract Infection Hypoxia Seizure ([facility]) Obesity, Class I, Bmi 30-34.9 Infection of Prosthetic Right Knee Joint ([facility]) Joint Infection (Hcc) Dysuria Septic Arthritis of Knee, Right ([facility]) Jasen Ewing DO 01/07/2021 12:28 PM Orthopedic Surgery Resident [id number] [facility] 01-07-2021 Note HNO ID: [id number] Author: Brina Peterson RN Service: Care Management Author Type: Registered Nurse Type: Juanjo Mgt Initial Assessment Filed: 01/07/2021 11:17 AM Note Text: CARE MANAGEMENT: ASSESSMENT AND DISCHARGE PLAN SERVICE DATE: January 07, 2021 SERVICE TIME: 11:00 AM PRIMARY CARE PHYSICIAN: Moreno Oates MD ADMISSION STATUS: Inpatient Needs Prior to Discharge: To Be Determined;Accepting Facility;Discharge Transportation;Discharge Prescriptions MEDICAL: [place] MEDICA[place] Patient/Intake Coordinator Stated Goals: To have reduction in symptoms;Other [...] Current Advance Directive: Health Care Power of Filler Operator;Living Will In Chart: Yes Up To Date [...] facility) Has the Patient Been in a Mcfp Facility in the Past 30 days?: Yes Location and Dates: [facility] (dates unknown- equipment [employer] resident) SOCIAL: Living Arrangements: Nursing Facility Facility Information: [facility] Financial Resources: Disabled Primary Contact: Extended Emergency Contact Information Primary Emergency Contact: Callum Nguyen Mobile Relation: Son Supportive Patient Contact:: Yes Contact Resources: Family;Other Family Name/Phone: Vicente Driscoll/daughter [phone] POA Name/Phone: Callum Nguyen/[phone] Caregiver AssessmentCaregiver is ready, willing and able to meet the patient's needs as recommended by the inter-professional team:: Other: See Comment (To be determined) Does the patient have an acute stroke diagnosis, or has the patient had a stroke during this admission?: No Patient's transition needs and plan for meeting these needs: patient states plan is to return to [facility] Patient's perception of need for this admission: right knee pain, fever Medication Adherance I am convinced of the importance of my prescription medication: 0 - Agree Completely I worry that my prescription medication will do more harm than good to me : 0 - Disagree Mostly I feel financially burdened by my [id number]-[id number] expenses for my prescription medication:: 0 - Disagree Completely Risk Score: 0 Patient is categorized as: Low risk < 2 Are you interested in bedside delivery of your medications? No Is Patient Psychosocially Complex?: No ASSESSMENT AND PLAN: Medical Needs: Medical Needs: IV Antibiotics;Two or more chronic diseases;Fall risk or frequent falls Psychosocial Needs: Psychosocial Needs: None FREEDOM OF CHOICE EXPLAINED: Girard of Choice Given: Yes (patient states plan is to return to [facility]) Provider list within the patient's requested geographic area shared with the patient/family: No Quality and resource use metrics shared with the patient that are relevant to the patient's goals of care and treatment preferences:: No Reason: patient decines states plan is to return to [facility] POTENTIAL TRANSITION PLANS To Be Determined;[facility] from [facility], for right knee pain AND fever. 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 PCP Dr. Moreno Oates. SIGNATURE: Brina Peterson RN PATIENT NAME: Charlie Nguyen DATE: January 07, 2021 MR (more content not included)... [facility] 01-07-2021 Note HNO ID: [id number] Author: Jasen Ewing DO Service: Orthopaedic Surgery Author Type: Resident Type: Plan of Care Filed: 01/07/2021 10:44 AM Note Text: Orthopedic Surgery Plan of Care Note Charlie Nguyen Ok for diet. No operative intervention today. Will discuss further management with staff. Continue IV antibiotics. Please contact the orthopedic resident telephone instrument supervisor with any questions or concerns. Jasen Ewing DO 01/07/2021 10:43 AM Orthopedic Surgery Resident [id number] [facility] 01-07-2021 Note HNO ID: [id number] Author: Kristen Melton APRN.BENJAMIN Service: General Internal Medicine Author Type: Nurse Practitioner Type: Progress Notes Filed: 01/07/2021 6:44 AM Note Text: Attestation signed by Milton Fernandez MD at 01/07/2021 2:32 PM I have reviewed the above note obtained and documented by the DIRECTOR [employer]PA. I have discussed the case and management [...] Discussed with Dr Fernandez SIGNATURE: Kristen Melton APRN.DOCK HAND DATE: January 07, 2021 TIME: 6:21 AM [facility] 12-26-2020 Note HNO ID: [id number] Author: Kimberli Israel RN Service: Care Management [...] Arrangements: Ambulance/[facility] [employer] Agency and Phone #:: [facility] [phone] Date of Trip: 12/26/20 Time of Trip: 673 Type of Service: BLS Non-emergency Is Patient Medicaid Pending?: No Discussion of financial coverage occurred with: (N/A) Wood Patternmaker Apprentice Location: [place] Destination: [facility] Financial Care Management Responsibility: None ADDITIONAL CONTACT RESOURCES: Discharge Information Row Name ED to Hosp-Admission (Current) from 12/19/2020 in [facility] Agency [facility] Needs Prior to Discharge: Ready for Discharge Transportation Arrangements: Ambulance/[facility] [employer] Agency and Phone #:: [facility] [phone] Date of Trip: 12/26/20 Time of Trip: 1830 Type of Service: BLS Non-emergency Is Patient Medicaid Pending?: No Discussion of financial coverage occurred with: (N/A) Wood Patternmaker Apprentice Location: [place] Destination: [facility] Financial Care Management Responsibility: None Pt ready for d/c today. SIGNATURE: Kimberli Israel RN PATIENT NAME: Charlie Nguyen DATE: December 26, 2020 TIME: 4:48 PM PAGER/CONTACT #: Kimberli Israel [phone] or [phone] [facility] 12-26-2020 Note HNO ID: [id number] Author: Alexandria Reddy MD Service: Hospital Medicine Author Type: Physician Type: Progress Notes Filed: 12/26/2020 2:33 PM Note Text: DEPARTMENT OF HOSPITAL MEDICINE PROGRESS NOTE SERVICE DATE: 12/26/2020 SERVICE TIME: 2:31 PM Hospital Medicine/Primary Attending: Alexandria Reddy MD NIGHT AND WEEKEND COVERAGE: Patient admitted to [facility]. Page [phone] between 7 am and 5 pm for patient issues; from 5 p to 7 am, page the night hospitalist at pager [phone] Subjective INTERVAL HPI: Diarrhea improving Issues with [...] cap(s) (LYRICA) 100 mg ORAL BID - zunpjqg-tsuhkmrgt-xwakmlj D3 500 mg(1,250mg) -200 unit 2 tablet [...] Inserted (PICC) Left Arm Through Introducer 4.0 Montenegrin 5 days Drain External Collection Device 12/21/20 0930 5 days DATA: Diagnostic tests reviewed for today's visit: Most recent labs Most recent imaging Assessment/Plan Problem List Joint infection (HCC) POA: Yes Acute deep vein thrombosis (DVT) of right lower extremity (HCC) POA: Yes MS (multiple sclerosis) ([facility]) POA: Yes Essential hypertension POA: Yes Current smoker POA: Yes Chronic pain of right knee POA: Yes Seizure ([facility]) POA: Yes Dysuria POA: . HOSPITAL COURSE: [...] is after POD5 ? MS (multiple sclerosis) ([facility]) POA: Yes WC bound Urine and fecal incontinence LE parasthesia ? Essential hypertension POA: Yes Controlled - Continue Metoprolol; hold HCTZ? ? Current smoker POA: Yes - Nicotine patches ? Seizure ([facility]) POA: Yes - Continue Depakote ? Depressoin/Anxiety [...] 12/19/20 0900 activ (more content not included)... [facility] 12-25-2020 Note HNO ID: [id number] Author: Alexandria Reddy MD Service: Hospital Medicine Author Type: Physician Type: Progress Notes Filed: 12/25/2020 1:43 PM Note Text: DEPARTMENT OF HOSPITAL MEDICINE PROGRESS NOTE SERVICE DATE: 12/25/2020 SERVICE TIME: 1:35 PM Hospital Medicine/Primary Attending: Alexandria Reddy MD NIGHT AND WEEKEND COVERAGE: Patient admitted to [facility]. Page [phone] between 7 am and 5 pm for patient issues; from 5 p to 7 am, page the night hospitalist at pager [phone] Subjective INTERVAL HPI: Issues with hypotension earlier. [...] cap(s) (LYRICA) 100 mg ORAL BID - zwuqhah-xdrbpwrws-yxubddz D3 500 mg(1,250mg) -200 unit 2 tablet [...] Inserted (PICC) Left Arm Through Introducer 4.0 Montenegrin 4 days Drain External Collection Device 12/21/20 [...] is after POD5 ? MS (multiple sclerosis) ([facility]) POA: Yes WC bound Urine and fecal [...] Last Action Orde (more content not included)... [facility] 12-25-2020 Note HNO ID: [id number] Author: Sanjana Tarango MD Service: Infectious Disease [...] cap(s) (LYRICA) 100 mg ORAL BID - vaxsvne-yqiclzfji-wuxqjwr D3 500 mg(1,250mg) -200 unit 2 tablet [...] every Thursday faxed to Sanjana Tarango at [phone] Okay for d/c from ID standpoint Sanjana Tarango MD [employer] Contact#: [phone] [facility] 12-24-2020 Note HNO ID: [id number] Author: Alexandria Reddy MD Service: Hospital Medicine Author Type: Physician Type: Progress Notes Filed: 12/24/2020 2:59 PM Note Text: DEPARTMENT OF HOSPITAL MEDICINE PROGRESS NOTE SERVICE DATE: 12/24/2020 SERVICE TIME: 2:55 PM Hospital Medicine/Primary Attending: Alexandria Reddy MD NIGHT AND WEEKEND COVERAGE: Patient admitted to -1. Page [phone] between 7 am and 5 pm for patient issues; from 5 p to 7 am, page the night hospitalist at pager [phone] Subjective INTERVAL HPI: Complaining that the nurses [...] cap(s) (LYRICA) 100 mg ORAL BID - uoktwjx-muawcfvvx-ejblgbh D3 500 mg(1,250mg) -200 unit 2 tablet [...] Inserted (PICC) Left Arm Through Introducer 4.0 Montenegrin 3 days Drain External Collection Device 12/21/20 [...] resume eliquis tomorrow. ? MS (multiple sclerosis) ([facility]) POA: Yes WC bound Urine and fecal incontinence LE parasthesia ? Essential hypertension POA: Yes Controlled - Continue Metoprolol; hold HCTZ? ? Current smoker POA: Yes - Nicotine patches ? Seizure ([facility]) POA: Yes - Continue Depakote ? Depressoin/Anxiety - c/w paxil and seroquil Medication and Non-Pharmacologic VTE Prophylaxis/Anticoagulants Anticoagulant AND Antiplatelet Medications (From admission, onward) Start Dose Route Frequency Last Action Ordered Stop 12/20/20 0900 enoxaparin 40 mg injection (LOVENOX) (Surgical Risk Categories) 40 mg SUBCUTANEOUS EVERY 24 HOURS Given, 12/24 0906 12/19/20 (more content not included)... [facility] 12-24-2020 Note HNO ID: [id number] Author: Sanjana Tarango MD Service: Infectious Disease [...] cap(s) (LYRICA) 100 mg ORAL BID - seukaqc-yeioimegc-lmnqwki D3 500 mg(1,250mg) -200 unit 2 tablet [...] AM Sanjana Tarango MD [employer] Contact#: [phone] [facility] 12-23-2020 Note HNO ID: [id number] Author: Alexandria Reddy MD Service: Hospital Medicine Author Type: Physician Type: Progress Notes Filed: 12/23/2020 2:21 PM Note Text: DEPARTMENT OF HOSPITAL MEDICINE PROGRESS NOTE SERVICE DATE: 12/23/2020 SERVICE TIME: 2:20 PM Hospital Medicine/Primary Attending: Alexandria Reddy MD NIGHT AND WEEKEND COVERAGE: Patient admitted to -1. Page [phone] between 7 am and 5 pm for patient issues; from 5 p to 7 am, page the night hospitalist at pager [phone] Subjective INTERVAL HPI: Patient continues to complain [...] cap(s) (LYRICA) 100 mg ORAL BID - tmpyztc-geglapeov-obpdmub D3 500 mg(1,250mg) -200 unit 2 tablet [...] Inserted (PICC) Left Arm Through Introducer 4.0 Montenegrin 2 days Drain External Collection Device 12/21/20 [...] 1025 12/19/202004 -- 12/19/202014 pneumatic compression stockings (mn,oh) 12/19/20 0900 activity - mobilize patient (more content not included)... [facility] 12-22-2020 Note HNO ID: [id number] Author: Alexandria Reddy MD Service: Hospital Medicine Author Type: Physician Type: Progress Notes Filed: 12/22/2020 3:25 PM Note Text: DEPARTMENT OF HOSPITAL MEDICINE PROGRESS NOTE SERVICE DATE: 12/22/2020 SERVICE TIME: 3:21 PM Hospital Medicine/Primary Attending: Alexandria Reddy MD NIGHT AND WEEKEND COVERAGE: Patient admitted to [facility]. Page [phone] between 7 am and 5 pm for patient issues; from 5 p to 7 am, page the night hospitalist at pager [phone] Subjective INTERVAL HPI: Patient seem drowsy but [...] cap(s) (LYRICA) 100 mg ORAL BID - cqohzkw-wpxschydi-igxhpul D3 500 mg(1,250mg) -200 unit 2 tablet [...] Inserted (PICC) Left Arm Through Introducer 4.0 Montenegrin 1 day Drain External Collection Device 12/21/20 0930 1 day DATA: Diagnostic tests reviewed for today's visit: Most recent labs Most recent imaging Assessment/Plan Problem List Joint infection (HCC) POA: Yes Acute deep vein thrombosis (DVT) of right lower extremity (HCC) POA: Yes MS (multiple sclerosis) ([facility]) POA: Yes Essential hypertension POA: Yes Current smoker POA: Yes Chronic pain of right knee POA: Yes Seizure ([facility]) POA: Yes Dysuria POA: . HOSPITAL COURSE: [...] lonvenox for now ? MS (multiple sclerosis) ([facility]) POA: Yes WC bound Urine and fecal incontinence LE parasthesia - stable; CTM ? Essential hypertension POA: Yes Controlled - Continue Metoprolol; hold HCTZ? ? Current smoker POA: Yes - Nicotine patches ? Seizure ([facility]) POA: Yes - Continue Depakote ? Depressoin/Anxiety - c/w paxil and seroquil Medication and Non-Pharmacologic VTE Prophylaxis/Anticoagulants Anticoagulant AND Antiplatelet Medications (From admission, onward) Start Dose Route Frequency Last Action Ordered Stop 12/20/20 0900 enoxaparin 40 mg injection (LOVENOX) (Surgical Risk Categories) 40 mg SUBCUTANEOUS EVERY 24 HOURS Given, 12/22 93212/19/202004 -- 12/19/202014 pneumatic compression stockings ([place]) 12/19/20 0900 activity - mobilize patient ([place]) VTE Prophylaxis: VTE prop (more content not included)... [facility] 12-22-2020 Note HNO ID: [id number] Author: Jasen Ewing DO Service: Orthopaedic Surgery [...] sign off Please contact the orthopedic resident telephone instrument supervisor with any questions or concerns. ACTIVE PROBLEM [...] Extremity (Hcc) Acute Respiratory Failure With Hypoxia ([facility]) Chronic Pain Syndrome Chronic Prescription Benzodiazepine Use [...] Right Knee Joint (Hcc) Joint Infection ([facility]) Dysuria Jasen Ewing DO 12/22/2020 7:38 AM Orthopedic Surgery Resident [id number] [facility] 12-22-2020 Note HNO ID: [id number] Author: Interface Note Service: ? Author Type: ? Type: Progress Notes Filed: 12/22/2020 2:51 AM Note Text: Epic Scheduled Downtime: 12/22/2020 1:01:00 AM to 12/22/2020 2:33:00 AM [facility] 12-21-2020 Note HNO ID: [id number] Author: Maricel Levy MD Service: Hospital Medicine Author Type: Physician Type: Progress Notes Filed: 12/21/2020 4:16 PM Note Text: DEPARTMENT OF HOSPITAL MEDICINE PROGRESS NOTE SERVICE DATE: December 21, 2020 SERVICE TIME: 10:42 AM Hospital Medicine/Primary Attending: Maricel Levy MD NIGHT AND WEEKEND COVERAGE: NIGHT AND WEEKEND COVERAGE: [facility] COVERAGE: Patient admitted to Hospitalist Service From 0700 - 163, please contact pager listed in Epic for patient issues. From 1630 - 07, please contact the Night Hospitalist on pager [phone] for patient issues. Subjective INTERVAL HPI: No [...] Inserted (PICC) Left Arm Through Introducer 4.0 Montenegrin <1 day Drain External Collection Device 12/21/20 [...] after POD5 (today POD2) MS (multiple sclerosis) (HCC) POA: Yes WC [...] 21, 2020 TIME: 4:16 PM PAGER/CONTACT #: [phone] [facility] 12-21-2020 Note HNO ID: [id number] Author: Chaitanya Champagne RN Service: PICC Team Author Type: Registered Nurse Type: Procedures Filed: 12/21/2020 12:55 PM Note Text: PICC NURSE INSERTION NOTE DATE OF PROCEDURE: December 21, 2020 TIME OF PROCEDURE: 1120 ORDERING PHYSICIAN: Dr. Sanjana Tarango INFORMED CONSENT: Obtained per hospital policy. INDICATION FOR LINE PLACEMENT: COPAT CONDITION OF LINE PLACEMENT: Sterile PRIMARY PROCEDURALIST: Chaitanya Champagne R.N. [facility] CIRCUIT MANAGER: Kimberly Headley R.N. PRE-PROCEDURE REVIEW ALLERGIES Allergen Reactions - Nsaids (Non-Steroid* GI Upset - Gabapentin GI Upset - Macrobid [Nitrofura* Hives - Tramadol Contraindication-Medical Surgical Drug interaction with amitriptyline - told not to take due to increased seizure risk - Dittmer [Hydrocodone-* GI Upset Didn't do anything for [...] Champagne RN CATHETER PLACEMENT Brand: BARD Lot: [id number] Number of Lumens: 1 Type of PICC: Power Injectable PICC Lumen Size: 4 Montenegrin PLACEMENT TECHNIQUE Lidocaine: Yes, Lidocaine 1% Volume [...] patient, Report provided to Ali bedside nurse. [place] limb alert applied [facility] Central Line Insertion checklist, attached to the Central Line-Associated Bloodstream Infection Prevention Policy, was utilized during this procedure. QUESTIONS or PROBLEMS: Vocera radiology PICC Nurse SIGNATURE: Chaitanya Champagne RN PATIENT NAME: Charlie Nguyen DATE: December 21, 2020 TIME: 12:47 PM PA (more content not included)... [facility] 12-21-2020 Note HNO ID: [id number] Author: Sandra Cruz RN Service: Care Management [...] ID recs Thursday. Plan to return to [facility] on dc, updated notes sent to facility. Will require updated COVID prior to discharge. SIGNATURE: Sandra Cruz RN PATIENT NAME: Charlie Nguyen DATE: December 21, 2020 TIME: 10:50 AM PAGER/CONTACT #: [phone] [facility] 12-21-2020 Note HNO ID: [id number] Author: Jasen Ewing DO Service: Orthopaedic Surgery [...] needs facility Please contact the orthopedic resident telephone instrument supervisor with any questions or concerns. ACTIVE PROBLEM [...] Hypotension History of Pulmonary Embolism Septic Arthritis ([facility]) Urinary Tract Infection Hypoxia Seizure ([facility]) Obesity, Class I, Bmi 30-34.9 Infection of Prosthetic Right Knee Joint ([facility]) Joint Infection ([facility]) Dysuria Jasen Ewing DO 12/21/2020 9:25 AM Orthopedic Surgery Resident [id number] [facility] 12-21-2020 Note HNO ID: [id number] Author: Sanjana Tarango MD Service: Infectious Disease [...] cap(s) (LYRICA) 100 mg ORAL BID - uoiilbn-gpnthjuiu-isllojo D3 500 mg(1,250mg) -200 unit 2 tablet [...] concerns. Sanjana Tarango MD [employer] Contact#: [phone] [facility] 12-20-2020 Note HNO ID: [id number] Author: Maricel Levy MD Service: Hospital Medicine Author Type: Physician Type: Progress Notes Filed: 12/20/2020 4:55 PM Note Text: DEPARTMENT OF HOSPITAL MEDICINE PROGRESS NOTE SERVICE DATE: December 20, 2020 SERVICE TIME: 3:42 PM Hospital Medicine/Primary Attending: Maricel Levy MD NIGHT AND WEEKEND COVERAGE: NIGHT AND WEEKEND COVERAGE: [facility] COVERAGE: Patient admitted to Hospitalist Service From 0700 - 1630, please contact pager listed in Epic for patient issues. From 1630 - 0700, please contact the Night Hospitalist on pager [phone] for patient issues. Subjective INTERVAL HPI: No [...] mg SUBCUTANEOUS EVERY 24 HOURS Given, 12/20 0814 12/19/202004 -- VTE prophylaxis appropriate. 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 ACTIVE PROBLEM [...] Joint Infection (Hcc) Dysuria Jasen Ewing DO 12/20/2020 8:37 AM Orthopedic Surgery Resident [id number] [facility] 12-19-2020 Note HNO ID: [id number] Author: Aubrey Jensen MD Service: Hospital Medicine Author Type: Physician Type: Plan of Care Filed: 12/19/2020 9:32 PM Note Text: Patient reports of taking percocet POA>. Reviewed PDMP. Ordered percocet overnight. Primary team to reassess in am. [facility] 12-19-2020 Note HNO ID: [id number] Author: Tenisha Ly APRN.SAILING MASTER Service: Anesthesiology Author Type: Nurse Clinical Trials Specialist Type: Anesthesia Procedure Notes Filed: 12/19/2020 3:49 PM Note Text: ANESTHESIOLOGY PROCEDURE NOTE PIV General Information Patient Location: OR Staffing SAILING MASTER: Tenisha Ly APRN.SAILING MASTER Preparation Sterility Preparation: hand hygiene performed prior to procedure, surgical cap used, mask used, skin prep agent completely dried prior to procedure Site Prep: alcohol Procedure Details Indication: need for IV access Needle Size/Type: 18 gauge angiocath Orientation: Left Location: Forearm Imaging Guidance Used: No SIGNATURE: Tenisha Ly APRN.SAILING MASTER PATIENT NAME: Charlie Nguyen DATE: December 19, 2020 TIME: 3:49 PM CSN: [id number] [facility] 12-19-2020 Note HNO ID: [id number] Author: Tenisha Ly APRN.SAILING MASTER Service: Anesthesiology Author Type: Nurse Clinical Trials Specialist Type: Anesthesia Procedure Notes Filed: 12/19/2020 3:49 PM Note Text: ANESTHESIOLOGY PROCEDURE NOTE Airway General Information Procedure Start Time/Medication Administration: 12/19/2020 3:40 PM Patient location during procedure: OR Patient identity confirmed: arm band Staffing SAILING MASTER: Tenisha Ly APRN.CRNA Indications and Patient Condition Preoxygenated: yes Difficult [...] 1 Airway not difficult SIGNATURE: Tenisha Ly APRN.SAILING MASTER PATIENT NAME: Charlie Nguyen DATE: December 19, 2020 TIME: 3:48 PM CSN: [id number] [facility] 12-19-2020 Note HNO ID: [id number] Author: Radha Mcpherson MD Service: Anesthesiology Author Type: Anesthesiologist Type: Anesthesia Procedure Notes Filed: 12/19/2020 2:33 PM Note Text: ANESTHESIOLOGY PROCEDURE NOTE Peripheral Nerve Block General Information Procedure Start Time/Medication Administration: 12/19/2020 2:00 PM Procedure End time: 12/19/2020 2:03 PM Patient location during procedure: pre-op Timeout Performed Pre-procedure: timeout performed Consent Obtained: Yes Patient identity confirmed: arm band, 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 Reason for block: post-op pain [...] December 19, 2020 TIME: 2:32 PM CSN: [id number] [facility] 12-19-2020 Note HNO ID: [id number] Author: Senait Girard RN Service: Nursing Author Type: Registered Nurse Type: Nursing Progress Note Filed: 12/19/2020 2:04 PM Note Text: NO sedation used except local Patient tolerated procedure very well [facility] 11-26-2017 History of Past i llness [...] Overview: Added automatically from request for surgery [id number] Acute pain of right knee 06/25/2017 018 Overview: Added automatically from request for surgery [id number] Patellar dislocation, right, initial encounter 1 06/20/2016 04/21/2017 Status post total knee replacement using cement, right 04/16/2017 04/21/2017 Overview: Added automatically from request for surgery [id number] Acute pain of right knee 04/16/2017 017 Overview: Added automatically from request for surgery [id number] SUMMARY 04/03/2017 04/17/2017 Overview: Admit date: 04/03/2017 Reason for Admission/Observation: Unable to function Presentation: Patient is a 61-year-old female with PMH of [place], osteoarthritis, MRSA and herniated disc of the [...] of this encounter (statuses as of 08/26/2021) [facility]06-[facility]-2018 History of Past illness Narrative* Problem [...] Overview: Added automatically from request for surgery [id number] Acute pain of right knee 06/25/2017 018 Overview: Added automatically from request for surgery [id number] Patellar dislocation, right, initial encounter 1 06/20/2016 04/21/2017 Status post total knee replacement using cement, right 04/16/2017 04/21/2017 Overview: Added automatically from request for surgery [id number] Acute pain of right knee 04/16/2017 017 Overview: Added automatically from request for surgery [id number] SUMMARY 04/03/2017 04/17/2017 Overview: Admit date: 04/03/2017 Reason for Admission/Observation: Unable to function Presentation: Patient is a 61-year-old female with PMH of [place], osteoarthritis, MRSA and herniated disc of the [...] of this encounter (statuses as of 08/27/2021) [facility] History of Past illness Narrative* Problem [...] Overview: Added automatically from request for surgery [id number] Acute pain of right knee 06/25/2017 018 Overview: Added automatically from request for surgery [id number] Patellar dislocation, right, initial encounter 1 06/20/2016 04/21/2017 Status post total knee replacement using cement, right 04/16/2017 04/21/2017 Overview: Added automatically from request for surgery [id number] Acute pain of right knee 04/16/2017 017 Overview: Added automatically from request for surgery [id number] SUMMARY 04/03/2017 04/17/2017 Overview: Admit date: 04/03/2017 Reason for Admission/Observation: Unable to function Presentation: Patient is a 61-year-old female with PMH of [place], osteoarthritis, MRSA and herniated disc of the [...] of this encounter (statuses as of 08/27/2021) [facility] History of Past illness Narrative* Problem [...] Overview: Added automatically from request for surgery [id number] Acute pain of right knee 06/25/2017 018 Overview: Added automatically from request for surgery [id number] Patellar dislocation, right, initial encounter 1 06/20/2016 04/21/2017 Status post total knee replacement using cement, right 04/16/2017 04/21/2017 Overview: Added automatically from request for surgery [id number] Acute pain of right knee 04/16/2017 017 Overview: Added automatically from request for surgery [id number] SUMMARY 04/03/2017 04/17/2017 Overview: Admit date: 04/03/2017 Reason for Admission/Observation: Unable to function Presentation: Patient is a 61-year-old female with PMH of [place], osteoarthritis, MRSA and herniated disc of the [...] of this encounter (statuses as of 09/27/2021) [facility] [facility] Past illness Narrative* Problem [...] Overview: Added automatically from request for surgery [id number] Acute pain of right knee 06/25/2017 018 Overview: Added automatically from request for surgery [id number] Patellar dislocation, right, initial encounter 1 06/20/2016 04/21/2017 Status post total knee replacement using cement, right 04/16/2017 04/21/2017 Overview: Added automatically from request for surgery [id number] Acute pain of right knee 04/16/2017 017 Overview: Added automatically from request for surgery [id number] SUMMARY 04/03/2017 04/17/2017 Overview: Admit date: 04/03/2017 Reason for Admission/Observation: Unable to function Presentation: Patient is a 61-year-old female with PMH of [place], osteoarthritis, MRSA and herniated disc of the [...] of this encounter (statuses as of 10/04/2021) [facility] History of Past illness Narrative* Problem [...] Overview: Added automatically from request for surgery [id number] Acute pain of right knee 06/25/2017 018 Overview: Added automatically from request for surgery [id number] Patellar dislocation, right, initial encounter 1 06/20/2016 04/21/2017 Status post total knee replacement using cement, right 04/16/2017 04/21/2017 Overview: Added automatically from request for surgery [id number] Acute pain of right knee 04/16/2017 017 Overview: Added automatically from request for surgery [id number] SUMMARY 04/03/2017 04/17/2017 Overview: Admit date: 04/03/2017 Reason for Admission/Observation: Unable to function Presentation: Patient is a 61-year-old female with PMH of [place], osteoarthritis, MRSA and herniated disc of the [...] of this encounter (statuses as of 10/07/2021) [facility] History of Past illness Narrative* Problem [...] Overview: Added automatically from request for surgery [id number] Acute pain of right knee 06/25/2017 018 Overview: Added automatically from request for surgery [id number] Patellar dislocation, right, initial encounter 1 06/20/2016 04/21/2017 Status post total knee replacement using cement, right 04/16/2017 04/21/2017 Overview: Added automatically from request for surgery [id number] Acute pain of right knee 04/16/2017 017 Overview: Added automatically from request for surgery [id number] SUMMARY 04/03/2017 04/17/2017 Overview: Admit date: 04/03/2017 Reason for Admission/Observation: Unable to function Presentation: Patient is a 61-year-old female with PMH of [place], osteoarthritis, MRSA and herniated disc of the [...] of this encounter (statuses as of 10/08/2021) [facility] History of Past illness Narrative* Problem [...] Overview: Added automatically from request for surgery [id number] Acute pain of right knee 06/25/2017 018 Overview: Added automatically from request for surgery [id number] Patellar dislocation, right, initial encounter 1 06/20/2016 04/21/2017 Status post total knee replacement using cement, right 04/16/2017 04/21/2017 Overview: Added automatically from request for surgery [id number] Acute pain of right knee 04/16/2017 017 Overview: Added automatically from request for surgery [id number] SUMMARY 04/03/2017 04/17/2017 Overview: Admit date: 04/03/2017 Reason for Admission/Observation: Unable to function Presentation: Patient is a 61-year-old female with PMH of [place], osteoarthritis, MRSA and herniated disc of the [...] of this encounter (statuses as of 10/14/2021) [facility] History of Past illness Narrative* Problem [...] Overview: Added automatically from request for surgery [id number] Acute pain of right knee 06/25/2017 018 Overview: Added automatically from request for surgery [id number] Patellar dislocation, right, initial encounter 1 06/20/2016 04/21/2017 Status post total knee replacement using cement, right 04/16/2017 04/21/2017 Overview: Added automatically from request for surgery [id number] Acute pain of right knee 04/16/2017 017 Overview: Added automatically from request for surgery [id number] SUMMARY 04/03/2017 04/17/2017 Overview: Admit date: 04/03/2017 Reason for Admission/Observation: Unable to function Presentation: Patient is a 61-year-old female with PMH of [place], osteoarthritis, MRSA and herniated disc of the [...] of this encounter (statuses as of 10/22/2021) [facility] History of Past illness Narrative* Problem [...] Overview: Added automatically from request for surgery [id number] Acute pain of right knee 06/25/2017 018 Overview: Added automatically from request for surgery [id number] Patellar dislocation, right, initial encounter 1 06/20/2016 04/21/2017 Status post total knee replacement using cement, right 04/16/2017 04/21/2017 Overview: Added automatically from request for surgery [id number] Acute pain of right knee 04/16/2017 017 Overview: Added automatically from request for surgery [id number] SUMMARY 04/03/2017 04/17/2017 Overview: Admit date: 04/03/2017 Reason for Admission/Observation: Unable to function Presentation: Patient is a 61-year-old female with PMH of [place], osteoarthritis, MRSA and herniated disc of the [...] of this encounter (statuses as of 10/29/2021) [facility] History of Past illness Narrative* Problem [...] Overview: Added automatically from request for surgery [id number] Acute pain of right knee 06/25/2017 018 Overview: Added automatically from request for surgery [id number] Patellar dislocation, right, initial encounter 1 06/20/2016 04/21/2017 Status post total knee replacement using cement, right 04/16/2017 04/21/2017 Overview: Added automatically from request for surgery [id number] Acute pain of right knee 04/16/2017 017 Overview: Added automatically from request for surgery [id number] SUMMARY 04/03/2017 04/17/2017 Overview: Admit date: 04/03/2017 Reason for Admission/Observation: Unable to function Presentation: Patient is a 61-year-old female with PMH of [place], osteoarthritis, MRSA and herniated disc of the [...] of this encounter (statuses as of 11/18/2021) [facility] History of Past illness Narrative* Problem [...] Overview: Added automatically from request for surgery [id number] Acute pain of right knee 06/25/2017 018 Overview: Added automatically from request for surgery [id number] Patellar dislocation, right, initial encounter 1 06/20/2016 04/21/2017 Status post total knee replacement using cement, right 04/16/2017 04/21/2017 Overview: Added automatically from request for surgery [id number] Acute pain of right knee 04/16/2017 017 Overview: Added automatically from request for surgery [id number] SUMMARY 04/03/2017 04/17/2017 Overview: Admit date: 04/03/2017 Reason for Admission/Observation: Unable to function Presentation: Patient is a 61-year-old female with PMH of [place], osteoarthritis, MRSA and herniated disc of the [...] of this encounter (statuses as of 11/19/2021) [facility] History of Past illness Narrative* Problem [...] Overview: Added automatically from request for surgery [id number] Acute pain of right knee 06/25/2017 018 Overview: Added automatically from request for surgery [id number] Patellar dislocation, right, initial encounter 1 06/20/2016 04/21/2017 Status post total knee replacement using cement, right 04/16/2017 04/21/2017 Overview: Added automatically from request for surgery [id number] Acute pain of right knee 04/16/2017 017 Overview: Added automatically from request for surgery [id number] SUMMARY 04/03/2017 04/17/2017 Overview: Admit date: 04/03/2017 Reason for Admission/Observation: Unable to function Presentation: Patient is a 61-year-old female with PMH of [place], osteoarthritis, MRSA and herniated disc of the [...] of this encounter (statuses as of 11/20/2021) [facility] History of Past illness Narrative* Problem [...] Overview: Added automatically from request for surgery [id number] Acute pain of right knee 06/25/2017 018 Overview: Added automatically from request for surgery [id number] Patellar dislocation, right, initial encounter 1 06/20/2016 04/21/2017 Status post total knee replacement using cement, right 04/16/2017 04/21/2017 Overview: Added automatically from request for surgery [id number] Acute pain of right knee 04/16/2017 017 Overview: Added automatically from request for surgery [id number] SUMMARY 04/03/2017 04/17/2017 Overview: Admit date: 04/03/2017 Reason for Admission/Observation: Unable to function Presentation: Patient is a 61-year-old female with PMH of [place], osteoarthritis, MRSA and herniated disc of the [...] of this encounter (statuses as of 11/21/2021) [facility] History of Past illness Narrative* Problem [...] Overview: Added automatically from request for surgery [id number] Acute pain of right knee 06/25/2017 018 Overview: Added automatically from request for surgery [id number] Patellar dislocation, right, initial encounter 1 06/20/2016 04/21/2017 Status post total knee replacement using cement, right 04/16/2017 04/21/2017 Overview: Added automatically from request for surgery [id number] Acute pain of right knee 04/16/2017 017 Overview: Added automatically from request for surgery [id number] SUMMARY 04/03/2017 04/17/2017 Overview: Admit date: 04/03/2017 Reason for Admission/Observation: Unable to function Presentation: Patient is a 61-year-old female with PMH of [place], osteoarthritis, MRSA and herniated disc of the [...] of this encounter (statuses as of 11/25/2021) [facility] History of Past illness Narrative* Problem [...] Overview: Added automatically from request for surgery [id number] Acute pain of right knee 06/25/2017 018 Overview: Added automatically from request for surgery [id number] Patellar dislocation, right, initial encounter 1 06/20/2016 04/21/2017 Status post total knee replacement using cement, right 04/16/2017 04/21/2017 Overview: Added automatically from request for surgery [id number] Acute pain of right knee 04/16/2017 017 Overview: Added automatically from request for surgery [id number] SUMMARY 04/03/2017 04/17/2017 Overview: Admit date: 04/03/2017 Reason for Admission/Observation: Unable to function Presentation: Patient is a 61-year-old female with PMH of [place], osteoarthritis, MRSA and herniated disc of the [...] of this encounter (statuses as of 12/03/2021) [facility] History of Past illness Narrative* Problem [...] Overview: Added automatically from request for surgery [id number] Acute pain of right knee 06/25/2017 018 Overview: Added automatically from request for surgery [id number] Patellar dislocation, right, initial encounter 1 06/20/2016 04/21/2017 Status post total knee replacement using cement, right 04/16/2017 04/21/2017 Overview: Added automatically from request for surgery [id number] Acute pain of right knee 04/16/2017 017 Overview: Added automatically from request for surgery [id number] SUMMARY 04/03/2017 04/17/2017 Overview: Admit date: 04/03/2017 Reason for Admission/Observation: Unable to function Presentation: Patient is a 61-year-old female with PMH of [place], osteoarthritis, MRSA and herniated disc of the [...] of this encounter (statuses as of 12/09/2021) [facility] History of Past illness Narrative* Problem [...] Overview: Added automatically from request for surgery [id number] Acute pain of right knee 06/25/2017 018 Overview: Added automatically from request for surgery [id number] Patellar dislocation, right, initial encounter 1 06/20/2016 04/21/2017 Status post total knee replacement using cement, right 04/16/2017 04/21/2017 Overview: Added automatically from request for surgery [id number] Acute pain of right knee 04/16/2017 017 Overview: Added automatically from request for surgery [id number] SUMMARY 04/03/2017 04/17/2017 Overview: Admit date: 04/03/2017 Reason for Admission/Observation: Unable to function Presentation: Patient is a 61-year-old female with PMH of [place], osteoarthritis, MRSA and herniated disc of the [...] of this encounter (statuses as of 12/23/2021) [facility] History of Past illness Narrative* Problem [...] Overview: Added automatically from request for surgery [id number] Acute pain of right knee 06/25/2017 018 Overview: Added automatically from request for surgery [id number] Patellar dislocation, right, initial encounter 1 06/20/2016 04/21/2017 Status post total knee replacement using cement, right 04/16/2017 04/21/2017 Overview: Added automatically from request for surgery [id number] Acute pain of right knee 04/16/2017 017 Overview: Added automatically from request for surgery [id number] SUMMARY 04/03/2017 04/17/2017 Overview: Admit date: 04/03/2017 Reason for Admission/Observation: Unable to function Presentation: Patient is a 61-year-old female with PMH of [place], osteoarthritis, MRSA and herniated disc of the [...] of this encounter (statuses as of 12/30/2021) [facility] History of Past illness Narrative* Problem [...] Overview: Added automatically from request for surgery [id number] Acute pain of right knee 06/25/2017 018 Overview: Added automatically from request for surgery [id number] Patellar dislocation, right, initial encounter 1 06/20/2016 04/21/2017 Status post total knee replacement using cement, right 04/16/2017 04/21/2017 Overview: Added automatically from request for surgery [id number] Acute pain of right knee 04/16/2017 017 Overview: Added automatically from request for surgery [id number] SUMMARY 04/03/2017 04/17/2017 Overview: Admit date: 04/03/2017 Reason for Admission/Observation: Unable to function Presentation: Patient is a 61-year-old female with PMH of [place], osteoarthritis, MRSA and herniated disc of the [...] of this encounter (statuses as of 01/07/2022) [facility] History of Past illness Narrative* Problem [...] Overview: Added automatically from request for surgery [id number] Acute pain of right knee 06/25/2017 018 Overview: Added automatically from request for surgery [id number] Patellar dislocation, right, initial encounter 1 06/20/2016 04/21/2017 Status post total knee replacement using cement, right 04/16/2017 04/21/2017 Overview: Added automatically from request for surgery [id number] Acute pain of right knee 04/16/2017 017 Overview: Added automatically from request for surgery [id number] SUMMARY 04/03/2017 04/17/2017 Overview: Admit date: 04/03/2017 Reason for Admission/Observation: Unable to function Presentation: Patient is a 61-year-old female with PMH of [place], osteoarthritis, MRSA and herniated disc of the [...] of this encounter (statuses as of 02/05/2022) [facility] History of Past illness Narrative* Problem [...] Overview: Added automatically from request for surgery [id number] Acute pain of right knee 06/25/2017 018 Overview: Added automatically from request for surgery [id number] Patellar dislocation, right, initial encounter 1 06/20/2016 04/21/2017 Status post total knee replacement using cement, right 04/16/2017 04/21/2017 Overview: Added automatically from request for surgery [id number] Acute pain of right knee 04/16/2017 017 Overview: Added automatically from request for surgery [id number] SUMMARY 04/03/2017 04/17/2017 Overview: Admit date: 04/03/2017 Reason for Admission/Observation: Unable to function Presentation: Patient is a 61-year-old female with PMH of [place], osteoarthritis, MRSA and herniated disc of the [...] of this encounter (statuses as of 02/10/2022) [facility] History of Past illness Narrative* Problem [...] Overview: Added automatically from request for surgery [id number] Acute pain of right knee 06/25/2017 018 Overview: Added automatically from request for surgery [id number] Patellar dislocation, right, initial encounter 1 06/20/2016 04/21/2017 Status post total knee replacement using cement, right 04/16/2017 04/21/2017 Overview: Added automatically from request for surgery [id number] Acute pain of right knee 04/16/2017 017 Overview: Added automatically from request for surgery [id number] SUMMARY 04/03/2017 04/17/2017 Overview: Admit date: 04/03/2017 Reason for Admission/Observation: Unable to function Presentation: Patient is a 61-year-old female with PMH of [place], osteoarthritis, MRSA and herniated disc of the [...] of this encounter (statuses as of 02/12/2022) [facility] History of Past illness Narrative* Problem [...] Overview: Added automatically from request for surgery [id number] Acute pain of right knee 06/25/2017 018 Overview: Added automatically from request for surgery [id number] Patellar dislocation, right, initial encounter 1 06/20/2016 04/21/2017 Status post total knee replacement using cement, right 04/16/2017 04/21/2017 Overview: Added automatically from request for surgery [id number] Acute pain of right knee 04/16/2017 017 Overview: Added automatically from request for surgery [id number] SUMMARY 04/03/2017 04/17/2017 Overview: Admit date: 04/03/2017 Reason for Admission/Observation: Unable to function Presentation: Patient is a 61-year-old female with PMH of [place], osteoarthritis, MRSA and herniated disc of the [...] of this encounter (statuses as of 02/13/2022) [facility] History of Past illness Narrative* Problem [...] Overview: Added automatically from request for surgery [id number] Acute pain of right knee 06/25/2017 018 Overview: Added automatically from request for surgery [id number] Patellar dislocation, right, initial encounter 1 06/20/2016 04/21/2017 Status post total knee replacement using cement, right 04/16/2017 04/21/2017 Overview: Added automatically from request for surgery [id number] Acute pain of right knee 04/16/2017 017 Overview: Added automatically from request for surgery [id number] SUMMARY 04/03/2017 04/17/2017 Overview: Admit date: 04/03/2017 Reason for Admission/Observation: Unable to function Presentation: Patient is a 61-year-old female with PMH of [place], osteoarthritis, MRSA and herniated disc of the [...] of this encounter (statuses as of 03/06/2022) [facility] History of Past illness Narrative* Problem [...] Overview: Added automatically from request for surgery [id number] Acute pain of right knee 06/25/2017 018 Overview: Added automatically from request for surgery [id number] Patellar dislocation, right, initial encounter 1 06/20/2016 04/21/2017 Status post total knee replacement using cement, right 04/16/2017 04/21/2017 Overview: Added automatically from request for surgery [id number] Acute pain of right knee 04/16/2017 017 Overview: Added automatically from request for surgery [id number] SUMMARY 04/03/2017 04/17/2017 Overview: Admit date: 04/03/2017 Reason for Admission/Observation: Unable to function Presentation: Patient is a 61-year-old female with PMH of [place], osteoarthritis, MRSA and herniated disc of the [...] of this encounter (statuses as of 03/10/2022) [facility] History of Past illness Narrative* Problem [...] Overview: Added automatically from request for surgery [id number] Acute pain of right knee 06/25/2017 018 Overview: Added automatically from request for surgery [id number] Patellar dislocation, right, initial encounter 1 06/20/2016 04/21/2017 Status post total knee replacement using cement, right 04/16/2017 04/21/2017 Overview: Added automatically from request for surgery [id number] Acute pain of right knee 04/16/2017 017 Overview: Added automatically from request for surgery [id number] SUMMARY 04/03/2017 04/17/2017 Overview: Admit date: 04/03/2017 Reason for Admission/Observation: Unable to function Presentation: Patient is a 61-year-old female with PMH of [place], osteoarthritis, MRSA and herniated disc of the [...] of this encounter (statuses as of 03/12/2022) [facility] History of Past illness Narrative* Problem [...] Overview: Added automatically from request for surgery [id number] Acute pain of right knee 06/25/2017 018 Overview: Added automatically from request for surgery [id number] Patellar dislocation, right, initial encounter 1 06/20/2016 04/21/2017 Status post total knee replacement using cement, right 04/16/2017 04/21/2017 Overview: Added automatically from request for surgery [id number] Acute pain of right knee 04/16/2017 017 Overview: Added automatically from request for surgery [id number] SUMMARY 04/03/2017 04/17/2017 Overview: Admit date: 04/03/2017 Reason for Admission/Observation: Unable to function Presentation: Patient is a 61-year-old female with PMH of [place], osteoarthritis, MRSA and herniated disc of the [...] of this encounter (statuses as of 03/17/2022) [facility] History of Past illness Narrative* Problem [...] Overview: Added automatically from request for surgery [id number] Acute pain of right knee 06/25/2017 018 Overview: Added automatically from request for surgery [id number] Patellar dislocation, right, initial encounter 1 06/20/2016 04/21/2017 Status post total knee replacement using cement, right 04/16/2017 04/21/2017 Overview: Added automatically from request for surgery [id number] Acute pain of right knee 04/16/2017 017 Overview: Added automatically from request for surgery [id number] SUMMARY 04/03/2017 04/17/2017 Overview: Admit date: 04/03/2017 Reason for Admission/Observation: Unable to function Presentation: Patient is a 61-year-old female with PMH of [place], osteoarthritis, MRSA and herniated disc of the [...] of this encounter (statuses as of 03/18/2022) [facility] History of Past illness Narrative* Problem [...] Overview: Added automatically from request for surgery [id number] Acute pain of right knee 06/25/2017 018 Overview: Added automatically from request for surgery [id number] Patellar dislocation, right, initial encounter 1 06/20/2016 04/21/2017 Status post total knee replacement using cement, right 04/16/2017 04/21/2017 Overview: Added automatically from request for surgery [id number] Acute pain of right knee 04/16/2017 017 Overview: Added automatically from request for surgery [id number] SUMMARY 04/03/2017 04/17/2017 Overview: Admit date: 04/03/2017 Reason for Admission/Observation: Unable to function Presentation: Patient is a 61-year-old female with PMH of [place], osteoarthritis, MRSA and herniated disc of the [...] of this encounter (statuses as of 03/24/2022) [facility] History of Past illness Narrative* Problem [...] Overview: Added automatically from request for surgery [id number] Acute pain of right knee 06/25/2017 018 Overview: Added automatically from request for surgery [id number] Patellar dislocation, right, initial encounter 1 06/20/2016 04/21/2017 Status post total knee replacement using cement, right 04/16/2017 04/21/2017 Overview: Added automatically from request for surgery [id number] Acute pain of right knee 04/16/2017 017 Overview: Added automatically from request for surgery [id number] SUMMARY 04/03/2017 04/17/2017 Overview: Admit date: 04/03/2017 Reason for Admission/Observation: Unable to function Presentation: Patient is a 61-year-old female with PMH of [place], osteoarthritis, MRSA and herniated disc of the [...] of this encounter (statuses as of 05/13/2022) [facility] History of Past illness Narrative* Problem [...] Overview: Added automatically from request for surgery [id number] Acute pain of right knee 06/25/2017 018 Overview: Added automatically from request for surgery [id number] Patellar dislocation, right, initial encounter 1 06/20/2016 04/21/2017 Status post total knee replacement using cement, right 04/16/2017 04/21/2017 Overview: Added automatically from request for surgery [id number] Acute pain of right knee 04/16/2017 017 Overview: Added automatically from request for surgery [id number] SUMMARY 04/03/2017 04/17/2017 Overview: Admit date: 04/03/2017 Reason for Admission/Observation: Unable to function Presentation: Patient is a 61-year-old female with PMH of [place], osteoarthritis, MRSA and herniated disc of the [...] of this encounter (statuses as of 05/21/2022) [facility] History of Past illness Narrative* Problem [...] Overview: Added automatically from request for surgery [id number] Acute pain of right knee 06/25/2017 018 Overview: Added automatically from request for surgery [id number] Patellar dislocation, right, initial encounter 1 06/20/2016 04/21/2017 Status post total knee replacement using cement, right 04/16/2017 04/21/2017 Overview: Added automatically from request for surgery [id number] Acute pain of right knee 04/16/2017 017 Overview: Added automatically from request for surgery [id number] SUMMARY 04/03/2017 04/17/2017 Overview: Admit date: 04/03/2017 Reason for Admission/Observation: Unable to function Presentation: Patient is a 61-year-old female with PMH of [place], osteoarthritis, MRSA and herniated disc of the [...] of this encounter (statuses as of 05/23/2022) [facility] History of Past illness Narrative* Problem [...] Overview: Added automatically from request for surgery [id number] Acute pain of right knee 06/25/2017 018 Overview: Added automatically from request for surgery [id number] Patellar dislocation, right, initial encounter 1 06/20/2016 04/21/2017 Status post total knee replacement using cement, right 04/16/2017 04/21/2017 Overview: Added automatically from request for surgery [id number] Acute pain of right knee 04/16/2017 017 Overview: Added automatically from request for surgery [id number] SUMMARY 04/03/2017 04/17/2017 Overview: Admit date: 04/03/2017 Reason for Admission/Observation: Unable to function Presentation: Patient is a 61-year-old female with PMH of [place], osteoarthritis, MRSA and herniated disc of the [...] of this encounter (statuses as of 06/13/2022) [facility] History of Past illness Narrative* Problem [...] Overview: Added automatically from request for surgery [id number] Acute pain of right knee 06/25/2017 018 Overview: Added automatically from request for surgery [id number] Patellar dislocation, right, initial encounter 1 06/20/2016 04/21/2017 Status post total knee replacement using cement, right 04/16/2017 04/21/2017 Overview: Added automatically from request for surgery [id number] Acute pain of right knee 04/16/2017 017 Overview: Added automatically from request for surgery [id number] SUMMARY 04/03/2017 04/17/2017 Overview: Admit date: 04/03/2017 Reason for Admission/Observation: Unable to function Presentation: Patient is a 61-year-old female with PMH of [place], osteoarthritis, MRSA and herniated disc of the [...] of this encounter (statuses as of 06/18/2022) [facility] History of Past illness Narrative* Problem [...] Overview: Added automatically from request for surgery [id number] Acute pain of right knee 06/25/2017 018 Overview: Added automatically from request for surgery [id number] Patellar dislocation, right, initial encounter 1 06/20/2016 04/21/2017 Status post total knee replacement using cement, right 04/16/2017 04/21/2017 Overview: Added automatically from request for surgery [id number] Acute pain of right knee 04/16/2017 017 Overview: Added automatically from request for surgery [id number] SUMMARY 04/03/2017 04/17/2017 Overview: Admit date: 04/03/2017 Reason for Admission/Observation: Unable to function Presentation: Patient is a 61-year-old female with PMH of [place], osteoarthritis, MRSA and herniated disc of the [...] of this encounter (statuses as of 06/25/2022) [facility] History of Past illness Narrative* Problem [...] Overview: Added automatically from request for surgery [id number] Acute pain of right knee 06/25/2017 018 Overview: Added automatically from request for surgery [id number] Patellar dislocation, right, initial encounter 1 06/20/2016 04/21/2017 Status post total knee replacement using cement, right 04/16/2017 04/21/2017 Overview: Added automatically from request for surgery [id number] Acute pain of right knee 04/16/2017 017 Overview: Added automatically from request for surgery [id number] SUMMARY 04/03/2017 04/17/2017 Overview: Admit date: 04/03/2017 Reason for Admission/Observation: Unable to function Presentation: Patient is a 61-year-old female with PMH of [place], osteoarthritis, MRSA and herniated disc of the [...] of this encounter (statuses as of 07/05/2022) [facility] History of Past illness Narrative* Problem [...] Overview: Added automatically from request for surgery [id number] Acute pain of right knee 06/25/2017 018 Overview: Added automatically from request for surgery [id number] Patellar dislocation, right, initial encounter 1 06/20/2016 04/21/2017 Status post total knee replacement using cement, right 04/16/2017 04/21/2017 Overview: Added automatically from request for surgery [id number] Acute pain of right knee 04/16/2017 017 Overview: Added automatically from request for surgery [id number] SUMMARY 04/03/2017 04/17/2017 Overview: Admit date: 04/03/2017 Reason for Admission/Observation: Unable to function Presentation: Patient is a 61-year-old female with PMH of [place], osteoarthritis, MRSA and herniated disc of the [...] of this encounter (statuses as of 07/09/2022) [facility] History of Past illness Narrative* Problem [...] Overview: Added automatically from request for surgery [id number] Acute pain of right knee 06/25/2017 018 Overview: Added automatically from request for surgery [id number] Patellar dislocation, right, initial encounter 1 06/20/2016 04/21/2017 Status post total knee replacement using cement, right 04/16/2017 04/21/2017 Overview: Added automatically from request for surgery [id number] Acute pain of right knee 04/16/2017 017 Overview: Added automatically from request for surgery [id number] SUMMARY 04/03/2017 04/17/2017 Overview: Admit date: 04/03/2017 Reason for Admission/Observation: Unable to function Presentation: Patient is a 61-year-old female with PMH of [place], osteoarthritis, MRSA and herniated disc of the [...] of this encounter (statuses as of 07/16/2022) [facility] History of Past illness Narrative* Problem [...] Overview: Added automatically from request for surgery [id number] Acute pain of right knee 06/25/2017 018 Overview: Added automatically from request for surgery [id number] Patellar dislocation, right, initial encounter 1 06/20/2016 04/21/2017 Status post total knee replacement using cement, right 04/16/2017 04/21/2017 Overview: Added automatically from request for surgery [id number] Acute pain of right knee 04/16/2017 017 Overview: Added automatically from request for surgery [id number] SUMMARY 04/03/2017 04/17/2017 Overview: Admit date: 04/03/2017 Reason for Admission/Observation: Unable to function Presentation: Patient is a 61-year-old female with PMH of [place], osteoarthritis, MRSA and herniated disc of the [...] of this encounter (statuses as of 07/22/2022) [facility] History of Past illness Narrative* Problem [...] Overview: Added automatically from request for surgery [id number] Acute pain of right knee 06/25/2017 018 Overview: Added automatically from request for surgery [id number] Patellar dislocation, right, initial encounter 1 06/20/2016 04/21/2017 Status post total knee replacement using cement, right 04/16/2017 04/21/2017 Overview: Added automatically from request for surgery [id number] Acute pain of right knee 04/16/2017 017 Overview: Added automatically from request for surgery [id number] SUMMARY 04/03/2017 04/17/2017 Overview: Admit date: 04/03/2017 Reason for Admission/Observation: Unable to function Presentation: Patient is a 61-year-old female with PMH of [place], osteoarthritis, MRSA and herniated disc of the [...] of this encounter (statuses as of 07/28/2022) [facility] History of Past illness Narrative* Problem [...] Overview: Added automatically from request for surgery [id number] Acute pain of right knee 06/25/2017 018 Overview: Added automatically from request for surgery [id number] Patellar dislocation, right, initial encounter 1 06/20/2016 04/21/2017 Status post total knee replacement using cement, right 04/16/2017 04/21/2017 Overview: Added automatically from request for surgery [id number] Acute pain of right knee 04/16/2017 017 Overview: Added automatically from request for surgery [id number] SUMMARY 04/03/2017 04/17/2017 Overview: Admit date: 04/03/2017 Reason for Admission/Observation: Unable to function Presentation: Patient is a 61-year-old female with PMH of [place], osteoarthritis, MRSA and herniated disc of the [...] of this encounter (statuses as of 07/29/2022) [facility] History of Past illness Narrative* Problem [...] Overview: Added automatically from request for surgery [id number] Acute pain of right knee 06/25/2017 018 Overview: Added automatically from request for surgery [id number] Patellar dislocation, right, initial encounter 1 06/20/2016 04/21/2017 Status post total knee replacement using cement, right 04/16/2017 04/21/2017 Overview: Added automatically from request for surgery [id number] Acute pain of right knee 04/16/2017 017 Overview: Added automatically from request for surgery [id number] SUMMARY 04/03/2017 04/17/2017 Overview: Admit date: 04/03/2017 Reason for Admission/Observation: Unable to function Presentation: Patient is a 61-year-old female with PMH of [place], osteoarthritis, MRSA and herniated disc of the [...] of this encounter (statuses as of 07/30/2022) [facility] History of Past illness Narrative* Problem [...] Overview: Added automatically from request for surgery [id number] Acute pain of right knee 06/25/2017 018 Overview: Added automatically from request for surgery [id number] Patellar dislocation, right, initial encounter 1 06/20/2016 04/21/2017 Status post total knee replacement using cement, right 04/16/2017 04/21/2017 Overview: Added automatically from request for surgery [id number] Acute pain of right knee 04/16/2017 017 Overview: Added automatically from request for surgery [id number] SUMMARY 04/03/2017 04/17/2017 Overview: Admit date: 04/03/2017 Reason for Admission/Observation: Unable to function Presentation: Patient is a 61-year-old female with PMH of [place], osteoarthritis, MRSA and herniated disc of the [...] of this encounter (statuses as of 08/12/2022) [facility] History of Past illness Narrative* Problem [...] Overview: Added automatically from request for surgery [id number] Acute pain of right knee 06/25/2017 018 Overview: Added automatically from request for surgery [id number] Patellar dislocation, right, initial encounter 1 06/20/2016 04/21/2017 Status post total knee replacement using cement, right 04/16/2017 04/21/2017 Overview: Added automatically from request for surgery [id number] Acute pain of right knee 04/16/2017 017 Overview: Added automatically from request for surgery [id number] SUMMARY 04/03/2017 04/17/2017 Overview: Admit date: 04/03/2017 Reason for Admission/Observation: Unable to function Presentation: Patient is a 61-year-old female with PMH of [place], osteoarthritis, MRSA and herniated disc of the [...] of this encounter (statuses as of 08/28/2022) [facility] History of Past illness Narrative* Problem [...] Overview: Added automatically from request for surgery [id number] Acute pain of right knee 06/25/2017 018 Overview: Added automatically from request for surgery [id number] Patellar dislocation, right, initial encounter 1 06/20/2016 04/21/2017 Status post total knee replacement using cement, right 04/16/2017 04/21/2017 Overview: Added automatically from request for surgery [id number] Acute pain of right knee 04/16/2017 017 Overview: Added automatically from request for surgery [id number] SUMMARY 04/03/2017 04/17/2017 Overview: Admit date: 04/03/2017 Reason for Admission/Observation: Unable to function Presentation: Patient is a 61-year-old female with PMH of [place], osteoarthritis, MRSA and herniated disc of the [...] of this encounter (statuses as of 08/30/2022) [facility] History of Past illness Narrative* Problem [...] Overview: Added automatically from request for surgery [id number] Acute pain of right knee 06/25/2017 018 Overview: Added automatically from request for surgery [id number] Patellar dislocation, right, initial encounter 1 06/20/2016 04/21/2017 Status post total knee replacement using cement, right 04/16/2017 04/21/2017 Overview: Added automatically from request for surgery [id number] Acute pain of right knee 04/16/2017 017 Overview: Added automatically from request for surgery [id number] SUMMARY 04/03/2017 04/17/2017 Overview: Admit date: 04/03/2017 Reason for Admission/Observation: Unable to function Presentation: Patient is a 61-year-old female with PMH of [place], osteoarthritis, MRSA and herniated disc of the [...] of this encounter (statuses as of 09/08/2022) [facility] History of Past illness Narrative* Problem [...] Overview: Added automatically from request for surgery [id number] Acute pain of right knee 06/25/2017 018 Overview: Added automatically from request for surgery [id number] Patellar dislocation, right, initial encounter 1 06/20/2016 04/21/2017 Status post total knee replacement using cement, right 04/16/2017 04/21/2017 Overview: Added automatically from request for surgery [id number] Acute pain of right knee 04/16/2017 017 Overview: Added automatically from request for surgery [id number] SUMMARY 04/03/2017 04/17/2017 Overview: Admit date: 04/03/2017 Reason for Admission/Observation: Unable to function Presentation: Patient is a 61-year-old female with PMH of [place], osteoarthritis, MRSA and herniated disc of the [...] of this encounter (statuses as of 09/20/2022) [facility] History of Past illness Narrative* Problem [...] Overview: Added automatically from request for surgery [id number] Acute pain of right knee 06/25/2017 018 Overview: Added automatically from request for surgery [id number] Patellar dislocation, right, initial encounter 1 06/20/2016 04/21/2017 Status post total knee replacement using cement, right 04/16/2017 04/21/2017 Overview: Added automatically from request for surgery [id number] Acute pain of right knee 04/16/2017 017 Overview: Added automatically from request for surgery [id number] SUMMARY 04/03/2017 04/17/2017 Overview: Admit date: 04/03/2017 Reason for Admission/Observation: Unable to function Presentation: Patient is a 61-year-old female with PMH of [place], osteoarthritis, MRSA and herniated disc of the [...] of this encounter (statuses as of 09/24/2022) [facility] History of Past illness Narrative* Problem [...] Overview: Added automatically from request for surgery [id number] Acute pain of right knee 06/25/2017 018 Overview: Added automatically from request for surgery [id number] Patellar dislocation, right, initial encounter 1 06/20/2016 04/21/2017 Status post total knee replacement using cement, right 04/16/2017 04/21/2017 Overview: Added automatically from request for surgery [id number] Acute pain of right knee 04/16/2017 017 Overview: Added automatically from request for surgery [id number] SUMMARY 04/03/2017 04/17/2017 Overview: Admit date: 04/03/2017 Reason for Admission/Observation: Unable to function Presentation: Patient is a 61-year-old female with PMH of [place], osteoarthritis, MRSA and herniated disc of the [...] of this encounter (statuses as of 10/01/2022) [facility] History of Past illness Narrative* Problem [...] Overview: Added automatically from request for surgery [id number] Acute pain of right knee 06/25/2017 018 Overview: Added automatically from request for surgery [id number] Patellar dislocation, right, initial encounter 1 06/20/2016 04/21/2017 Status post total knee replacement using cement, right 04/16/2017 04/21/2017 Overview: Added automatically from request for surgery [id number] Acute pain of right knee 04/16/2017 017 Overview: Added automatically from request for surgery [id number] SUMMARY 04/03/2017 04/17/2017 Overview: Admit date: 04/03/2017 Reason for Admission/Observation: Unable to function Presentation: Patient is a 61-year-old female with PMH of [place], osteoarthritis, MRSA and herniated disc of the [...] of this encounter (statuses as of 10/07/2022) [facility] History of Past illness Narrative* Problem [...] Overview: Added automatically from request for surgery [id number] Acute pain of right knee 06/25/2017 018 Overview: Added automatically from request for surgery [id number] Patellar dislocation, right, initial encounter 1 06/20/2016 04/21/2017 Status post total knee replacement using cement, right 04/16/2017 04/21/2017 Overview: Added automatically from request for surgery [id number] Acute pain of right knee 04/16/2017 017 Overview: Added automatically from request for surgery [id number] SUMMARY 04/03/2017 04/17/2017 Overview: Admit date: 04/03/2017 Reason for Admission/Observation: Unable to function Presentation: Patient is a 61-year-old female with PMH of [place], osteoarthritis, MRSA and herniated disc of the [...] of this encounter (statuses as of 10/16/2022) [facility] History of Past illness Narrative* Problem [...] Overview: Added automatically from request for surgery [id number] Acute pain of right knee 06/25/2017 018 Overview: Added automatically from request for surgery [id number] Patellar dislocation, right, initial encounter 1 06/20/2016 04/21/2017 Status post total knee replacement using cement, right 04/16/2017 04/21/2017 Overview: Added automatically from request for surgery [id number] Acute pain of right knee 04/16/2017 017 Overview: Added automatically from request for surgery [id number] SUMMARY 04/03/2017 04/17/2017 Overview: Admit date: 04/03/2017 Reason for Admission/Observation: Unable to function Presentation: Patient is a 61-year-old female with PMH of [place], osteoarthritis, MRSA and herniated disc of the [...] of this encounter (statuses as of 11/06/2022) [facility] History of Past illness Narrative* Problem [...] Overview: Added automatically from request for surgery [id number] Acute pain of right knee 06/25/2017 018 Overview: Added automatically from request for surgery [id number] Patellar dislocation, right, initial encounter 1 06/20/2016 04/21/2017 Status post total knee replacement using cement, right 04/16/2017 04/21/2017 Overview: Added automatically from request for surgery [id number] Acute pain of right knee 04/16/2017 017 Overview: Added automatically from request for surgery [id number] SUMMARY 04/03/2017 04/17/2017 Overview: Admit date: 04/03/2017 Reason for Admission/Observation: Unable to function Presentation: Patient is a 61-year-old female with PMH of [place], osteoarthritis, MRSA and herniated disc of the [...] of this encounter (statuses as of 11/17/2022) [facility] History of Past illness Narrative* Problem [...] Overview: Added automatically from request for surgery [id number] Acute pain of right knee 06/25/2017 018 Overview: Added automatically from request for surgery [id number] Patellar dislocation, right, initial encounter 1 06/20/2016 04/21/2017 Status post total knee replacement using cement, right 04/16/2017 04/21/2017 Overview: Added automatically from request for surgery [id number] Acute pain of right knee 04/16/2017 017 Overview: Added automatically from request for surgery [id number] SUMMARY 04/03/2017 04/17/2017 Overview: Admit date: 04/03/2017 Reason for Admission/Observation: Unable to function Presentation: Patient is a 61-year-old female with PMH of [place], osteoarthritis, MRSA and herniated disc of the [...] of this encounter (statuses as of 11/21/2022) [facility] History of Past illness Narrative* Problem [...] Overview: Added automatically from request for surgery [id number] Acute pain of right knee 06/25/2017 018 Overview: Added automatically from request for surgery [id number] Patellar dislocation, right, initial encounter 1 06/20/2016 04/21/2017 Status post total knee replacement using cement, right 04/16/2017 04/21/2017 Overview: Added automatically from request for surgery [id number] Acute pain of right knee 04/16/2017 017 Overview: Added automatically from request for surgery [id number] SUMMARY 04/03/2017 04/17/2017 Overview: Admit date: 04/03/2017 Reason for Admission/Observation: Unable to function Presentation: Patient is a 61-year-old female with PMH of [place], osteoarthritis, MRSA and herniated disc of the [...] of this encounter (statuses as of 12/04/2022) [facility] History of Past illness Narrative* Problem [...] Overview: Added automatically from request for surgery [id number] Acute pain of right knee 06/25/201711/2017 Overview: Added automatically from request for surgery [id number] Patellar dislocation, right, initial encounter 04/20/2017 04/21/2017 Status post total knee repla cement using cement, right 04/16/2017 04/21/2017 Overview: Added automatically from request for surgery [id number] Acute pain of right knee 04/16/2017 Overview: Added automatically from request for surgery [id number] SUMMARY 04/03/2017 04/17/2017 Overview: Admit date: 04/03/2017 Reason for Admission/Observation: Unable to function Presentation: Patient is a 61-year-old female with PMH of [place], osteoarthritis, MRSA and herniated disc of the [...] of this encounter (statuses as of 12/16/2022) [facility] of Past illness Narrative* Problem [...] Overview: Added automatically from request for surgery [id number] Acute pain of right knee 06/25/201711/2017 Overview: Added automatically from request for surgery [id number] Patellar dislocation, right, initial encounter 04/20/2017 04/21/2017 Status post total knee repla cement using cement, right 04/16/2017 04/21/2017 Overview: Added automatically from request for surgery [id number] Acute pain of right knee 04/16/2017 Overview: Added automatically from request for surgery [id number] SUMMARY 04/03/2017 04/17/2017 Overview: Admit date: 04/03/2017 Reason for Admission/Observation: Unable to function Presentation: Patient is a 61-year-old female with PMH of [place], osteoarthritis, MRSA and herniated disc of the [...] of this encounter (statuses as of 12/30/2022) [facility] History of Past illness Narrative* Problem [...] Overview: Added automatically from request for surgery [id number] Acute pain of right knee 06/25/201711/2017 Overview: Added automatically from request for surgery [id number] Patellar dislocation, right, initial encounter 04/20/2017 04/21/2017 Status post total knee repla cement using cement, right 04/16/2017 04/21/2017 Overview: Added automatically from request for surgery [id number] Acute pain of right knee 04/16/2017 Overview: Added automatically from request for surgery [id number] SUMMARY 04/03/2017 04/17/2017 Overview: Admit date: 04/03/2017 Reason for Admission/Observation: Unable to function Presentation: Patient is a 61-year-old female with PMH of [place], osteoarthritis, MRSA and herniated disc of the [...] of this encounter (statuses as of 01/01/2023) [facility] History of Past illness Narrative* Problem [...] Overview: Added automatically from request for surgery [id number] Acute pain of right knee 06/25/201711/2017 Overview: Added automatically from request for surgery [id number] Patellar dislocation, right, initial encounter 04/20/2017 04/21/2017 Status post total knee repla cement using cement, right 04/16/2017 04/21/2017 Overview: Added automatically from request for surgery [id number] Acute pain of right knee 04/16/2017 Overview: Added automatically from request for surgery [id number] SUMMARY 04/03/2017 04/17/2017 Overview: Admit date: 04/03/2017 Reason for Admission/Observation: Unable to function Presentation: Patient is a 61-year-old female with PMH of [place], osteoarthritis, MRSA and herniated disc of the [...] of this encounter (statuses as of 01/01/2023) [facility] of Past illness Narrative* Problem [...] Overview: Added automatically from request for surgery [id number] Acute pain of right knee 06/25/201711/2017 Overview: Added automatically from request for surgery [id number] Patellar dislocation, right, initial encounter 04/20/2017 04/21/2017 Status post total knee repla cement using cement, right 04/16/2017 04/21/2017 Overview: Added automatically from request for surgery [id number] Acute pain of right knee 04/16/2017 Overview: Added automatically from request for surgery [id number] SUMMARY 04/03/2017 04/17/2017 Overview: Admit date: 04/03/2017 Reason for Admission/Observation: Unable to function Presentation: Patient is a 61-year-old female with PMH of [place], osteoarthritis, MRSA and herniated disc of the [...] of this encounter (statuses as of 01/13/2023) [facility] History of Past illness Narrative* Problem [...] Overview: Added automatically from request for surgery [id number] Acute pain of right knee 06/25/201711/2017 Overview: Added automatically from request for surgery [id number] Patellar dislocation, right, initial encounter 04/20/2017 04/21/2017 Status post total knee repla cement using cement, right 04/16/2017 04/21/2017 Overview: Added automatically from request for surgery [id number] Acute pain of right knee 04/16/2017 Overview: Added automatically from request for surgery [id number] SUMMARY 04/03/2017 04/17/2017 Overview: Admit date: 04/03/2017 Reason for Admission/Observation: Unable to function Presentation: Patient is a 61-year-old female with PMH of [place], osteoarthritis, MRSA and herniated disc of the [...] of this encounter (statuses as of 01/14/2023) [facility] History of Past illness Narrative* Problem [...] Overview: Added automatically from request for surgery [id number] Acute pain of right knee 06/25/201711/2017 Overview: Added automatically from request for surgery [id number] Patellar dislocation, right, initial encounter 04/20/2017 04/21/2017 Status post total knee repla cement using cement, right 04/16/2017 04/21/2017 Overview: Added automatically from request for surgery [id number] Acute pain of right knee 04/16/2017 Overview: Added automatically from request for surgery [id number] SUMMARY 04/03/2017 04/17/2017 Overview: Admit date: 04/03/2017 Reason for Admission/Observation: Unable to function Presentation: Patient is a 61-year-old female with PMH of [place], osteoarthritis, MRSA and herniated disc of the [...] of this encounter (statuses as of 01/27/2023) [facility] History of Past illness Narrative* Problem [...] Overview: Added automatically from request for surgery [id number] Acute pain of right knee 06/25/201711/2017 Overview: Added automatically from request for surgery [id number] Patellar dislocation, right, initial encounter 04/20/2017 04/21/2017 Status post total knee repla cement using cement, right 04/16/2017 04/21/2017 Overview: Added automatically from request for surgery [id number] Acute pain of right knee 04/16/2017 Overview: Added automatically from request for surgery [id number] SUMMARY 04/03/2017 04/17/2017 Overview: Admit date: 04/03/2017 Reason for Admission/Observation: Unable to function Presentation: Patient is a 61-year-old female with PMH of [place], osteoarthritis, MRSA and herniated disc of the [...] of this encounter (statuses as of 01/31/2023) [facility] History of Past illness Narrative* Problem [...] Overview: Added automatically from request for surgery [id number] Acute pain of right knee 06/25/201711/2017 Overview: Added automatically from request for surgery [id number] Patellar dislocation, right, initial encounter 04/20/2017 04/21/2017 Status post total knee repla cement using cement, right 04/16/2017 04/21/2017 Overview: Added automatically from request for surgery [id number] Acute pain of right knee 04/16/2017 Overview: Added automatically from request for surgery [id number] SUMMARY 04/03/2017 04/17/2017 Overview: Admit date: 04/03/2017 Reason for Admission/Observation: Unable to function Presentation: Patient is a 61-year-old female with PMH of [place], osteoarthritis, MRSA and herniated disc of the [...] of this encounter (statuses as of 01/31/2023) [facility] History of Past illness Narrative* Problem [...] Overview: Added automatically from request for surgery [id number] Acute pain of right knee 06/25/201711/2017 Overview: Added automatically from request for surgery [id number] Patellar dislocation, right, initial encounter 04/20/2017 04/21/2017 Status post total knee repla cement using cement, right 04/16/2017 04/21/2017 Overview: Added automatically from request for surgery [id number] Acute pain of right knee 04/16/2017 Overview: Added automatically from request for surgery [id number] SUMMARY 04/03/2017 04/17/2017 Overview: Admit date: 04/03/2017 Reason for Admission/Observation: Unable to function Presentation: Patient is a 61-year-old female with PMH of [place], osteoarthritis, MRSA and herniated disc of the [...] of this encounter (statuses as of 02/13/2023) [facility] History of Past illness Narrative* Problem [...] Overview: Added automatically from request for surgery [id number] Acute pain of right knee 06/25/201711/2017 Overview: Added automatically from request for surgery [id number] Patellar dislocation, right, initial encounter 04/20/2017 04/21/2017 Status post total knee repla cement using cement, right 04/16/2017 04/21/2017 Overview: Added automatically from request for surgery [id number] Acute pain of right knee 04/16/2017 Overview: Added automatically from request for surgery [id number] SUMMARY 04/03/2017 04/17/2017 Overview: Admit date: 04/03/2017 Reason for Admission/Observation: Unable to function Presentation: Patient is a 61-year-old female with PMH of [place], osteoarthritis, MRSA and herniated disc of the [...] of this encounter (statuses as of 02/14/2023) [facility] History of Past illness Narrative* Problem [...] Overview: Added automatically from request for surgery [id number] Acute pain of right knee 06/25/201711/2017 Overview: Added automatically from request for surgery [id number] Patellar dislocation, right, initial encounter 04/20/2017 04/21/2017 Status post total knee repla cement using cement, right 04/16/2017 04/21/2017 Overview: Added automatically from request for surgery [id number] Acute pain of right knee 04/16/2017 Overview: Added automatically from request for surgery [id number] SUMMARY 04/03/2017 04/17/2017 Overview: Admit date: 04/03/2017 Reason for Admission/Observation: Unable to function Presentation: Patient is a 61-year-old female with PMH of [place], osteoarthritis, MRSA and herniated disc of the [...] of this encounter (statuses as of 03/30/2023) [facility] History of Past illness Narrative* Problem [...] Overview: Added automatically from request for surgery [id number] Acute pain of right knee 06/25/201711/2017 Overview: Added automatically from request for surgery [id number] Patellar dislocation, right, initial encounter 04/20/2017 04/21/2017 Status post total knee repla cement using cement, right 04/16/2017 04/21/2017 Overview: Added automatically from request for surgery [id number] Acute pain of right knee 04/16/2017 Overview: Added automatically from request for surgery [id number] SUMMARY 04/03/2017 04/17/2017 Overview: Admit date: 04/03/2017 Reason for Admission/Observation: Unable to function Presentation: Patient is a 61-year-old female with PMH of [place], osteoarthritis, MRSA and herniated disc of the [...] of this encounter (statuses as of 04/08/2023) [facility] History of Past illness Narrative* Problem [...] Overview: Added automatically from request for surgery [id number] Acute pain of right knee 06/25/201711/2017 Overview: Added automatically from request for surgery [id number] Patellar dislocation, right, initial encounter 04/20/2017 04/21/2017 Status post total knee repla cement using cement, right 04/16/2017 04/21/2017 Overview: Added automatically from request for surgery [id number] Acute pain of right knee 04/16/2017 Overview: Added automatically from request for surgery [id number] SUMMARY 04/03/2017 04/17/2017 Overview: Admit date: 04/03/2017 Reason for Admission/Observation: Unable to function Presentation: Patient is a 61-year-old female with PMH of [place], osteoarthritis, MRSA and herniated disc of the [...] of this encounter (statuses as of 04/14/2023) [facility] History of Past illness Narrative* Problem [...] Overview: Added automatically from request for surgery [id number] Acute pain of right knee 06/25/201711/2017 Overview: Added automatically from request for surgery [id number] Patellar dislocation, right, initial encounter 04/20/2017 04/21/2017 Status post total knee repla cement using cement, right 04/16/2017 04/21/2017 Overview: Added automatically from request for surgery [id number] Acute pain of right knee 04/16/2017 Overview: Added automatically from request for surgery [id number] SUMMARY 04/03/2017 04/17/2017 Overview: Admit date: 04/03/2017 Reason for Admission/Observation: Unable to function Presentation: Patient is a 61-year-old female with PMH of [place], osteoarthritis, MRSA and herniated disc of the [...] of this encounter (statuses as of 05/04/2023) [facility] History of Past illness Narrative* Problem [...] Overview: Added automatically from request for surgery [id number] Acute pain of right knee 06/25/201711/2017 Overview: Added automatically from request for surgery [id number] Patellar dislocation, right, initial encounter 04/20/2017 04/21/2017 Status post total knee repla cement using cement, right 04/16/2017 04/21/2017 Overview: Added automatically from request for surgery [id number] Acute pain of right knee 04/16/2017 Overview: Added automatically from request for surgery [id number] SUMMARY 04/03/2017 04/17/2017 Overview: Admit date: 04/03/2017 Reason for Admission/Observation: Unable to function Presentation: Patient is a 61-year-old female with PMH of [place], osteoarthritis, MRSA and herniated disc of the [...] of this encounter (statuses as of 05/11/2023) [facility] History of Past illness Narrative* Problem [...] Overview: Added automatically from request for surgery [id number] Acute pain of right knee 06/25/201711/2017 Overview: Added automatically from request for surgery [id number] Patellar dislocation, right, initial encounter 04/20/2017 04/21/2017 Status post total knee repla cement using cement, right 04/16/2017 04/21/2017 Overview: Added automatically from request for surgery [id number] Acute pain of right knee 04/16/2017 Overview: Added automatically from request for surgery [id number] SUMMARY 04/03/2017 04/17/2017 Overview: Admit date: 04/03/2017 Reason for Admission/Observation: Unable to function Presentation: Patient is a 61-year-old female with PMH of [place], osteoarthritis, MRSA and herniated disc of the [...] of this encounter (statuses as of 07/30/2023) [facility] History of Past illness Narrative* Problem [...] Overview: Added automatically from request for surgery [id number] Acute pain of right knee 06/25/201711/2017 Overview: Added automatically from request for surgery [id number] Patellar dislocation, right, initial encounter 04/20/2017 04/21/2017 Status post total knee repla cement using cement, right 04/16/2017 04/21/2017 Overview: Added automatically from request for surgery [id number] Acute pain of right knee 04/16/2017 Overview: Added automatically from request for surgery [id number] SUMMARY 04/03/2017 04/17/2017 Overview: Admit date: 04/03/2017 Reason for Admission/Observation: Unable to function Presentation: Patient is a 61-year-old female with PMH of [place], osteoarthritis, MRSA and herniated disc of the [...] of this encounter (statuses as of 07/31/2023) [facility] History of Past illness Narrative* Problem [...] Overview: Added automatically from request for surgery [id number] Acute pain of right knee 06/25/201711/2017 Overview: Added automatically from request for surgery [id number] Patellar dislocation, right, initial encounter 04/20/2017 04/21/2017 Status post total knee repla cement using cement, right 04/16/2017 04/21/2017 Overview: Added automatically from request for surgery [id number] Acute pain of right knee 04/16/2017 Overview: Added automatically from request for surgery [id number] SUMMARY 04/03/2017 04/17/2017 Overview: Admit date: 04/03/2017 Reason for Admission/Observation: Unable to function Presentation: Patient is a 61-year-old female with PMH of [place], osteoarthritis, MRSA and herniated disc of the [...] of this encounter (statuses as of 08/11/2023) [facility] note* Diagnosis Cellulitis of right lower extremity- Primary Cellulitis and abscess of leg, except foot documented in this encounter [facility] Work Phone: Evaluation note* Diagnosis Chronic pain of right knee- Primary documented in this encounter [facility] Work Phone: Evaluation note* Diagnosis Chronic anxiety Anxiety state, unspecified documented in this encounter [facility] note* Diagnosis Chronic pain of right knee documented in this encounter [facility] noteNo assessment information [facility]* Diagnosis Chronic anxiety Anxiety state, unspecified [facility] [place] [facility]* Diagnosis Chronic pain of right knee [facility] [place] [facility] Diagnosis Chronic anxiety Anxiety state, unspecified documented in this encounter [facility] note* Diagnosis Infection associated with internal right knee prosthesis, subsequent encounter Chronic anxiety Anxiety state, unspecified [facility] [place] [facility]* Diagnosis Chronic anxiety- Primary Anxiety state, unspecified [facility] [place] [facility]* Diagnosis Infection associated with internal right knee prosthesis, subsequent encounter documented in this encounter [facility] note* Diagnosis Infection associated with internal right knee prosthesis, subsequent encounter [facility] [place] [facility]* Diagnosis Chronic anxiety Anxiety state, unspecified Chronic pain of right knee Infection associated with internal right knee prosthesis, subsequent encounter documented in this encounter [facility] note* Diagnosis Infection associated with internal right knee prosthesis, subsequent encounter Chronic pain of right knee documented in this encounter [facility] note* Diagnosis Breast pain, left- Primary Mastodynia documented in this encounter [facility] note* Diagnosis Infection associated with internal right knee prosthesis, subsequent encounter documented in this encounter [facility] note* Diagnosis Status post total left knee replacement- Primary documented in this encounter [facility] note* Diagnosis Pain due to internal orthopedic prosthetic devices, implants and grafts, initial encounter ([facility] documented in this encounter [facility] note* Diagnosis Chronic pain of right knee Chronic anxiety Anxiety state, unspecified documented in this encounter [facility] note* Diagnosis Chronic anxiety Anxiety state, unspecified Chronic pain of right knee documented in this encounter [facility] note* Diagnosis Chronic pain of right knee Infection associated with internal right knee prosthesis, subsequent encounter Chronic anxiety Anxiety state, unspecified documented [facility] this encounter [facility] [place] [facility]* Diagnosis Status post total left knee replacement- Primary S/P revision of total knee, right [facility] [place] [facility]* Diagnosis Infection associated with internal right knee prosthesis, subsequent encounter [facility] this [facility] [place] [facility]* Diagnosis Infection associated with internal right knee prosthesis, subsequent encounter Chronic pain of right knee Chronic anxiety Anxiety state, unspecified [facility] [place] [facility] Diagnosis Chronic pain of right knee Chronic anxiety Anxiety state, unspecified Infection associated with internal right knee prosthesis, [facility] MS (multiple [facility]) (HCC)- Primary Multiple sclerosis Daily headache Headache documented in this encounter [facility] note* Diagnosis Chronic anxiety Anxiety state, unspecified documented in this encounter [facility] note* Diagnosis Infection associated with internal right knee prosthesis, subsequent encounter documented in this encounter [facility] note* Diagnosis Encounter for screening mammogram for breast cancer documented in this encounter [facility] note* Diagnosis Left leg swelling- Primary documented in this encounter [facility] note* Diagnosis MS (multiple sclerosis) (HCC) Multiple sclerosis Daily headache Headache Infection associated with internal right knee prosthesis, subsequent encounter Chronic anxiety Anxiety state, unspecified documented in this encounter [facility] note* Diagnosis Infection associated with internal right knee prosthesis, subsequent encounter documented in this encounter [facility] note* Diagnosis MS (multiple sclerosis) (HCC) Multiple sclerosis Daily headache Headache Chronic anxiety Anxiety state, unspecified documented in this encounter [facility] note* Diagnosis Pyogenic arthritis of right knee joint, due to unspecified organism (HCC) documented in this encounter [facility] note* Diagnosis MS (multiple sclerosis) (HCC) Multiple sclerosis Daily headache Headache Infection associated with internal right knee prosthesis, subsequent encounter Chronic anxiety Anxiety state, unspecified documented in this encounter [facility] note* Diagnosis MS (multiple sclerosis) (HCC) Multiple sclerosis Daily headache Headache Infection associated with internal right knee prosthesis, subsequent encounter Chronic anxiety Anxiety state, unspecified documented in this encounter [facility] note* Diagnosis Chronic anxiety Anxiety state, unspecified MS (multiple sclerosis) (HCC) Multiple sclerosis Daily headache Headache [facility] [place] [facility]* Diagnosis Infection associated with internal right knee prosthesis, subsequent encounter [facility] this [facility] [place] [facility]* Diagnosis Chronic anxiety Anxiety state, unspecified Infection associated with internal right knee prosthesis, subsequent encounter MS (multiple sclerosis) (HCC) Multiple sclerosis Daily headache Headache documented in this encounter [facility] note* Diagnosis MS (multiple sclerosis) (HCC) Multiple sclerosis Daily headache Headache Chronic anxiety Anxiety state, unspecified Infection associated with internal right knee prosthesis, subsequent encounter [facility] [place] [facility]* Diagnosis Infection associated with internal right knee prosthesis, subsequent encounter Chronic anxiety Anxiety state, unspecified MS (multiple sclerosis) (HCC) Multiple sclerosis Daily headache Headache [facility] [place] [facility]* Diagnosis Chronic anxiety Anxiety state, unspecified Infection associated with internal right knee prosthesis, subsequent encounter MS (multiple sclerosis) (HCC) Multiple sclerosis Daily headache Headache [facility] [place] [facility]* Diagnosis Chronic anxiety Anxiety state, unspecified [facility] [place] [facility]* Diagnosis Acute respiratory failure with hypoxia [...] prosthesis, subsequent encounter [facility] Diagnosis Acute respiratory failure with [...] Daily headache Headache [facility] [place] [facility]* Diagnosis Acute respiratory failure with hypoxia [...] left knee replacement [facility] [place] [facility]* Diagnosis Acute respiratory failure with hypoxia [...] Anxiety state, unspecified [facility] [place] [facility]* Diagnosis Acute respiratory failure with hypoxia [...] Anxiety state, unspecified [facility] [place] [facility]* Diagnosis Acute respiratory failure with hypoxia [...] Daily headache Headache documented in this encounter [facility] note* Diagnosis Acute respiratory failure with hypoxia [...] Daily headache Headache documented in this encounter [facility] note* Diagnosis Acute respiratory failure with hypoxia [...] Anxiety state, unspecified documented in this encounter [facility] note* Diagnosis Acute respiratory failure with hypoxia [...] prosthesis, subsequent encounter [facility] [place] [facility]* Diagnosis Acute respiratory failure with hypoxia [...] Daily headache Headache documented in this encounter [facility] note* Diagnosis Acute respiratory failure with hypoxia [...] Daily headache Headache [facility] [place] [facility]* Diagnosis Acute respiratory failure with hypoxia [...] prosthesis, subsequent encounter documented in this encounter [facility] note* Diagnosis Acute respiratory failure with hypoxia [...] Anxiety state, unspecified [facility] Diagnosis Acute respiratory failure with [...] Daily headache Headache documented in this encounter [facility] Discharge instructions* Instructions* Nica Nolasco MD - 01/06/2021 Orthopaedic Surgery Discharge Instructions: You may bear weight as tolerated Apply Ice to affected area. This will help with pain. Elevate your right lower extremity/extremities. This will help with swelling. Take your medications and antibiotics as prescribed. Call Dr. Parrish's office to schedule a follow-up appointment as soon as possible documented in this [facility] Work Phone: Hospital Discharge instructions* Attachments The following attachments cannot be sent through Care Everywhere. * Dependent [place] Discharge Instructions (Icelandic) [facility] Diagnostic Procedure Only (Routine) - Pending Review Specialty Diagnoses / Procedures Referred By Contac t Referred To Contact [facility] Diagnoses Breast pain, left Procedures US BREAST LTD LT US BREAST UNI REAL TIME WITH IMAGE LIMITED Moreno Oates MD [address] [place] [address] [facility] [address] [place] [address] Referral ID Status Reason Start Date Expiration Date Visits Requested Visits Authorized [id number] Pending Review Auto-Generat ed Referral 2 04/16/2023 1 1 * Diagnostic Procedure Only (Routine) - Pending Review Specialty Diagnoses / Procedures Referred By Contac t Referred To Contact BR IMAGING Diagnoses Breast pain, left Procedures AMANDA DIAGNOSTIC BILAT DIAGNOSTIC MAMMOGRAPHY COMPUTER-AIDED DETCJ BI Moreno Oates MD [address] [place] [address] Br Imaging [address] [place] [address] Referral ID Status Reason Start Date Expiration Date Visits Requested Visits Authorized [id number] Pending Review Auto-Generat ed Referral 2 04/16/2023 1 1 [facility] for referral (narrative)* Diagnostic Procedure Only (Routine) - Closed Specialty Diagnoses / Procedures Referred By Contac t Referred To Contact XR IMAGING Diagnoses Status post total left knee replacement Procedures XR KNEE POST OP 3V AP/LAT/MERCHANT LEFT RADIOLOGIC EXAMINATION KNEE 3 VIEWS Debbie Batista PA-C [address] [place] [address] Xr Imaging Referral ID Status Reason Start Date Expiration Date V isits Requested Visits Authorized [id number] Closed Auto-Generated Referral Financial Clearance Not Required 05/21/2022 06/20/2023 1 1 [facility] for referral (narrative)* Diagnostic Procedure Only (Routine) - Pending Review Specialty Diagnoses / Procedures Referred By Andrea flores Referred To Contact BR IMAGING Diagnoses Encounter for screening mammogram for breast cancer Procedures AMANDA SCREENING SCREENING MAMMOGRAPHY BI 2-VIEW BREAST INC CAD Moreno Oates MD [address] [place] [address] [place] [address] Br Imaging [address] [place] [address] Referral ID Status Reason Start Date Expiration Date Visits Requested Visits Authorized [id number] Pending Review Auto-Generat ed Referral 11/12/2022 12/12/2023 1 1 [facility] for referral (narrative)* Diagnostic Procedure Only (Routine) - Closed Specialty Diagnoses / Procedures Referred By Andrea flores Referred To Contact XR IMAGING Diagnoses Status post total left knee replacement Procedures XR KNEE POST OP 3V AP/LAT/MERCHANT LEFT RADIOLOGIC EXAMINATION KNEE 3 VIEWS Debbie Batista PA-C [address] [place] [address] Xr Imaging [id number] Referral ID Status Reason Start Date Expiration Date V isits Requested Visits Authorized [id number] Closed Auto-Generated Referral Financial Clearance Not Required 05/21/2022 06/20/2023 1 1 [facility] for referral (narrative)No reason for referral information [facility] Work Phone: Reason for visit Narrative* Diagnostic Procedure Only (Routine) - Closed Specialty Diagnoses / Procedures Referred By Contac t Referred To Contact CT IMAGING Diagnoses Pain due to internal orthopedic prosthetic devices, implants and grafts, initial... Procedures CT KNEE WO IVCON LT Debbie Batista PA-C [address] [place] [id number] Imaging Referral ID Status Reason Start Date Expiration Date V isits Requested Visits Authorized [id number] Closed OON/Self Pay Override 05/22/2022 11/18/2022 1 0 [facility] Summary Purpose Family History No Family History Records FoundNo Family History Records FoundNo Family History Records FoundNo Family History Records FoundNo Family History Records FoundNo Family History Records FoundNo Family History Records FoundNo Family History Records FoundNo Family History Records FoundNo Family History Records Found Advance Directives No Advanced Directives Records FoundDocuments on File Type Date Recorded Patient Intake Coordinator Expl anation Advance Directive(s) 03/10/2018 4:43 PM Date Activated Date Inactivated Comments 12/01/2019 2:03 PM 12/19/2020 2:08 AM Latest Code Status on File Code Status Date Activated Date Inactivated Comments Full Code 12/01/2019 2:03 PM 12/19/2020 2:08 AM Documents on File Type Date Recorded Patient Intake Coordinator Expl anation Advance Directives and Living Will Power of Filler Operator Latest Code Status on File Code Status Date Activated Date Inactivated Comments Full Code 11/04/2019 9:10 PM Limited 10/12/2019 1:14 PM 10/25/2019 6:17 PM Intubation/Re-intubation: No Defibrillation/Cardioversion: No Chest Compressions: No Resuscitative Medications: No Other (Specify in Free Text): OK for NIV Full Code 10/03/2019 11:26 AM 10/12/2019 1:14 PM Documents on File Type Date Recorded Patient Intake Coordinator Expl anation ACP-Advance Directive ACP-Power of Filler Operator DNR Documentation 10/27/2019 8:41 AM Latest Code Status on File Code Status Date Activated Date Inactivated Comments Full Code 01/27/2020 11:12 PM Full Code 11/04/2019 9:10 PM 11/05/2019 1:25 AM Latest Code Status on File Code Status Date Activated Date Inactivated Comments Limited 10/12/2019 1:14 PM Documents on File Type Date Recorded Patient Intake Coordinator Expl anation ACP-Advance Directive ACP-Power of Filler Operator ACP-Do Not Resuscitate 10/27/2019 8:41 AM Latest Code Status on File Code Status Date Activated Date Inactivated Comments Full Code 01/27/2020 11:12 PM 02/03/2020 6:47 PM Documents on File Type Date Recorded Patient Intake Coordinator Expl anation Advance Directive(s) 01/06/2021 4:29 AM [...] Documents on File Type Date Recorded Patient Intake Coordinator Expl anation Advance Directive(s) 03/10/2018 4:43 PM Latest Code Status on File Code Status Date Activated Date Inactivated Comments Full Code 12/01/2019 2:03 PM 12/19/2020 2:08 AM Documents on File Type Date Recorded Patient Intake Coordinator Expl anation DNR (Do Not Resuscitate) 10/03/2019 DNR (Do Not Resuscitate) 04/26/2015 Latest Code Status on File Code Status Date Activated Date Inactivated Comments Full Code 12/01/2019 2:03 PM 12/19/2020 2:08 AM Date Activated Date Inactivated Comments 12/01/2019 2:03 PM 12/19/2020 2:08 AM History of Present Illness * Jan Zepeda MD - 11/04/2019 9:29 PM EDT Discussed Mrs. Nguyen's case with Dr. Parrish ([facility] Orthopaedic Surgeon). Patient to be transferred to [facility]. Discussed with [facility] call center and transportation. Discussed with IMS at [facility] - will be accepting transfer. Transfer pending. Please page [phone] or telephone instrument supervisor resident with questions or concerns. Jan Zepeda MD PGY-2, Orthopaedic Surgery [phone] 11/04/2019 .9:46 PM * Jan Zepeda MD - 11/04/2019 8:15 PM EDT documented in this encounter* Delisa Guaman RN - 02/03/2020 3:48 PM EDT Report called to [facility]. Informed them that the patient is scheduled to be picked up at 1600. * Kristen Howard OTA - 02/03/2020 1:37 PM EDT Occupational Therapy Facility/Department: [facility] Daily Treatment Note NAME: Charlie [...] ARTHUR Tierney * Yamilka Yeboah APRN - DOCK HAND - 02/02/2020 12:09 PM EDT Hospitalist Progress [...] the expert evaluation and faxed it to [phone] * Deja Koehler MD - 02/02/2020 8:05 [...] 02/01/2020 2:29 PM EDT Physical Therapy Facility/Department: [facility] Daily Treatment Note NAME: Charlie Nguyen : 1955 Date of Service: 02/01/2020 Discharge Recommendations: Subacute/Mcfp Facility Assessment Assessment: Pt still presents with [...] Ischemic colitis (HCC), and MS (multiple sclerosis) ([facility]). has a past surgical history that includes [...] Admit Date: 01/27/2020 PCP: Moreno Oates Room#: [id number] Interval History: Pt had a better night, [...] times per day LABS: CBC: Recent Labs 01/30/2051801/31/20 0549 WBC 7.5 5.6 RBC 3.62* 4.26 [...] 01/31/2020 11:12 AM EDT Physical Therapy Facility/Department: [facility] TELE[facility] Daily Treatment Note NAME: Charlie Nguyen [...] AM EDT Occupational Therapy Facility/Department: [facility] Daily Treatment Note NAME: Charlie Nguyen : 1955 Date of Service: 01/31/2020 Discharge Recommendations: Subacute/Mcfp Facility Assessment Performance deficits / Impairments: Decreased [...] Timed Code Treatment Minutes: 25 Minutes(2x FA) ARTHUR Roblse/L * Kiley Goff PA-C - 01/31/2020 9:57 AM EDT While evaluating the pt, she started telling me about some hallucinations she appeared to have thismorning. She states some "killer white moths" came in and killed all three of her cats. Tried re-orienting the patient, because at this present time she does know she is in [facility], but she is still very much [...] loss Fluid Accumulation: 1 - Mild Extremities Windows 7 Deployment Lead Strength: Not Performed Estimated Daily Nutrient Needs: Energy (kcal): 3904-1132 kcals; Weight Used for Energy Requirements: [place] Protein (g): 70-84 g(1-1.2); Weight Used for Protein Requirements: [place] Fluid (ml/day): 5275-4731 ml/day or per MD; Weight Used for Fluid Requirements: [place] Nutrition Related Findings: +1 BLE edema, Cl [...] Usual Body Weight: 270 lb (122.5 kg)(10/03/19) [place] Body Weight: 155 lbs; % [place] Body Weight 164.5 % BMI: 35.6 Adjusted [...] Admit Date: 01/27/2020 PCP: Moreno Oates Room#: [id number] Interval History: No overnight issues. The pt [...] last 72 hours. CARDIAC ENZYMES: Recent Labs 01/27/20 1852 TROPONINI <0.012 Procalcitonin: Lab Results Component Value [...] 01/29/2020 11:34 AM EDT Physical Therapy Facility/Department: [facility] TELE[facility] Initial Assessment NAME: Charlie Nguyen : 1955 Date of Service: 01/29/2020 Having reviewed the treatment plan and goals for this patient, I certify that the plan of care below is medically necessary and appropriate. Discharge Recommendations: Subacute/Mcfp Facility PT Equipment Recommendations Equipment Needed: No [...] past medical history of Anxiety, Brain tumor ([facility]), Depression, GERD (gastroesophageal refluxdisease), Headache, Ischemic colitis (HCC), and MS (multiple sclerosis) ([facility]). has a past surgical history that includes [...] 1955 Date of Service: 01/29/2020 Discharge Recommendations: Subacute/Mcfp Facility Assessment Performance deficits / Impairments: Decreased [...] ADL Inpatient CMS G-Code Modifier : CK (01/29/20 1110) Goals Short term goals Time Frame for [...] Time Individual Concurrent Group Co-treatment Time In 09(co-eval with PT) Time Out 0945 Minutes 16 Arlin Baltazar, OT * Fermin Davenport DTR - 01/29/2020 7:24 AM EDT Nutrition rescreen completed. Pt referred to RD. * Deja Lay PT - 01/28/2020 3:10 PM EDT Physical Therapy Facility/Department: [facility] Daily Treatment Note NAME: Charlie Nguyen [...] PM EDT Called report to [facility]. * Carlos Degroot, PT - 10/25/2019 1:30 [...] changes. Sandie Taylor OT * Kristen Burton, JIM - 10/25/2019 11:45 AM EDT Speech Language Pathology Facility/Department: [facility] Speech Language/Dysphagia Daily Therapy Note [...] per plan of care. Kristen Burton M.A., CCC-FINISHED METAL REPAIRER Speech-Language Pathologist Time in 1135 Time out 1145 * Clinton Deleon MD - 10/25/2019 11:10 AM EDT [facility], Pulmonary Critical Care and Sleep Medicine [address] [place], [place] [id number] Patient - Charlie Nguyen, Age - 64 y.o. - 1955 Room Number - 460/[id number] Consulting - Max Bob DO Primary Care Physician - Moreno Oates Date of Admission - 10/03/2019 7:34 AM Hospital Day - I have evaluated the patient and reviewed the case with the [employer]. I agree with the current plan of [...] N95 MASK, Gown, FACE SHIELD AND GLOVES [phone]: Please page me @ [phone] for patient care issues. [phone]: Please page [facility] night Hospitalist for any issues. Subjective: Admit [...] 12 9 LIVER PROFILE: Recent Labs 10/22/19 0510/23/1934710/24/19 0450 AST 56* 44 41 ALT 100* [...] GERD (gastroesophageal reflux disease) Headache Ischemic colitis ([facility]) MS (multiple sclerosis) ([facility]) Plan : Pysch cleared for I/P stay, [...] Services This report was created using the Dat[employer] Speaking voice- activated system. Despiteprompt dictation and [...] also spoke to the patient's nurse, Yanique Margaux earlier, who was going to contact the doctor. * Joselin Dugan RN - 10/23/2019 3:35 PM EDT Patient's assessment remains unchanged. She is resting comfortably in bed. * Joselin Dugan RN - 10/23/2019 12:45 PM EDT Patient transferred to [facility] from [facility]. * Deepti Kim SLP - 10/23/2019 12:26 PM EDT Speech Language Pathology Facility/Department: [facility] Daily Treatment Note NAME: Charlie [...] Net -425 ml 10/20 0701 - 10/21 0700 In: - Out: 485 [...] intakes, weight; follow up Nutrition Assessment: multiple private secretary [facility]-like activity, restlessness and confusion. pt awaiting breakfast/ speech therapy following Malnutrition Assessment: Malnutrition Status: At risk for malnutrition(as previously assessed per RD) Context: Acute illness or injury Nutrition Risk Level: High Nutrient Needs: Estimated Daily Total Kcal: 4324-6567 kcals(25-28) Estimated Daily Protein (g): 66-79(1-1.2) Estimated [...] gain in 11 months (240# on 10/2018) [place] Body Wt: 145 lb (65.8 kg), % [place] Body 186 BMI Classification: BMI > or equal to 40.0 Obese Class III Nutrition Interventions: Continue current diet, Continue current ONS Continued Inpatient Monitoring, Speech Therapy Nutrition Evaluation: Evaluation: Progressing toward goals(diet advanced 10/12 ground control approach technician following ) Goals: pt will receive/tolerate adequate nutrition with safe swallow; Intakes will be >75% of meals/supplements Monitoring: Meal Intake, Supplement Intake, Diet Tolerance, Skin Integrity, Wound Healing, I&O,Mental Status/Confusion, Weight, Pertinent Labs, Chewing/Swallowing, Monitor Hemodynamic Status, Monitor Bowel Function Contact Number: [phone] * Nathaly Garcia PT - 10/21/2019 8:48 AM EDT Physical Therapy Facility/Department: [facility] Initial Assessment NAME: Charlie Nguyen : 1955 Date of Service: 10/21/2019 Chart review completed. Patient with multiple private secretary and transferred to [facility], therapy will require new orders to resume treatment once patient is medically appropriate. Nathaly Garcia, PT * Kristen Burton, FINISHED METAL REPAIRER - 10/21/2019 8:47 AM EDT Speech Language Pathology Facility/Department: [facility] Speech Language/Dysphagia Daily Therapy Note [...] per plan of care. Kristen Burton M.A., CCC-FINISHED METAL REPAIRER Speech-Language Pathologist Time in 817 Time out 847 * Sandie Taylor OT - 10/21/2019 7:53 AM EDT Occupational Therapy Facility/Department: [facility] Daily Treatment Note NAME: Charlie Nguyen : 1955 Date of Service: 10/21/2019 Discharge Recommendations: Subacute/Mcfp Facility, Continue to assess pending progress, LTACH Pt with CLOTH SHADER [facility] Please re-order therapy when medically stable. Sandie Taylor OT * Doris Brink PTA - 10/21/2019 7:43 AM EDT Physical Therapy Facility/Department: [facility] Daily Treatment Note NAME: Charlie Nguyen : 1955 Date of Service: 10/21/2019 General Chart Reviewed: Yes Missed reason: (Pt CLOTH SHADER'd a second time [facility] PT to address need for new orders vs continuation of treatment.) Doris Brink PTA * Des Romero MD - 10/21/2019 6:31 AM EDT [facility], Pulmonary Critical Care and Sleep Medicine [address] [place] [address] Critical Care Note: Patient - Charlie Nguyen, [...] Date 10/21/19 0000 - 10/21/19 2359 Shift 0150-9105 6927-0848 9197-0110 24 Hour Total INTAKE Shift Total(mL/kg) OUTPUT [...] by psychiatry was to be transferred to [facility] once clinically stable History of multiple sclerosis/debility [...] Romero MD - 10/20/2019 3:46 PM EDT [facility], Pulmonary Critical Care and Sleep Medicine [address] [place] [address] Critical Care Note: Patient - Charlie Nguyen, Age - 64 y.o. - 1955 Room Number - [id number] [facility] [id number] [id number] Date of Admission - 10/03/2019 7:34 AM [...] was filled out and give to the case management social worker. I also spoke with her daughter and informed her that evaluation has been filled out. Signing off for now. Contact with any concerns or questions * Doris Brink PTA - 10/20/2019 1:21 PM EDT Physical Therapy Facility/Department: [facility] Daily Treatment Note NAME: Charlie Nguyen : 1955 Date of Service: 10/20/2019 General Chart Reviewed: Yes Missed reason: (Pt just CLOTH SHADER'd. Will hold therapy until more stabilized and may need PT to readdressgoals. Will continue to follow) Doris Brink PTA * Kristen Burton, FINISHED METAL REPAIRER - 10/20/2019 1:10 PM EDT Speech Language Pathology Pt with recent CLOTH SHADER. Pt became unresponsive and eyes rolled back in head. D/W Dr. Corona briefly after CLOTH SHADER. Neurology was consulted. Will follow up as medically stable. Concern with aspiration and crackles bases/rhonchi. Pt's status waxes and wanes. * Kristen Howard OTA - 10/20/2019 12:03 PM EDT Occupational Therapy Facility/Department: [facility] Daily Treatment Note NAME: Charlie Nguyen : 1955 Date of Service: 10/20/2019 Discharge Recommendations: Subacute/Mcfp Facility, Continue to assess pending progress, LTACH [...] Deleon MD - 10/20/2019 10:30 AM EDT [facility], Pulmonary Critical Care and Sleep Medicine [address] [place], [place] [id number] Patient - Charlie Nguyen, Age - 64 y.o. - 1955 Room Number - [id number] Consulting - Max Bob DO Primary Care Physician - Moreno Oates Date of Admission - 10/03/2019 7:34 AM Hospital Day - 17 I have evaluated the patient and reviewed the case with the [employer]. I agree with the current plan of [...] encounter [Z51.5] 10/20/2019 Unspecified mood (affective) disorder ([facility]) [F39] Acute respiratory failure with hypoxia ([facility]) [J96.01] Intentional drug overdose ([facility]) [T50.892A] 10/03/2019 Drug overdose, multiple drugs, accidental or unintentional, initial encounter [D20.106B] 10/03/2019 Assessment and Plan Acute hypoxic respiratory failure s/p mechanical ventilation likely r/t aspiration - Extubated 10/11 - Continue supplemental O2 to maintain SpO2 92%. Wean off as patient tolerates. - BD therapy continued. - Declined BiPAP last night. Unresponsive episode 10/18/19 - more awake and alert this morning. Lying in bed. - CLOTH SHADER was called 10/17. ABG normal. CXR no [...] Planning for LTAC at discharge. Addendum 1250 CLOTH SHADER called again today for patient as patient [...] Man, DO - 10/20/2019 10:05 AM EDT [facility] Palliative Care Transitions of Care Note Charlie [...] baseline patient is non-ambulatory and transfers to [facility] at home. She has not walked in [...] legally her ( 5-6 years), Brayden Nguyen ([phone]). Family prefers that Vicente Driscoll (daughter) is contacted first ([phone]). She has 2 living adultchildren (Vicente and [...] issue per family -see Dr Celestin in [place] -psych following Multiple sclerosis/debility -follows with the [facility] as outpatient -uses wheelchair at baseline -outpatient [...] EDT Hospitalist Progress Note 10/20/2019 8:01 AM [phone]: Please page me ([phone]) for patient care issues. [phone]: Please page [facility] night Hospitalist for any issues. Subjective: Admit Date: 10/03/2019 PCP: Moreno Oates Room#: 118/4475 Interval History: Pt with increased confusion today. [...] of Hospitalist Medicine Inpatient Medical Services PAGER: [phone] * Sunday Cao RN - 10/20/2019 4:42 AM EDT Pt Mushtaq hunter not able to draw morning lab. Notified Dr. Dr. Ford. * Sepideh Lopez RCP - 10/20/2019 12:01 AM EDT [facility] Respiratory Care Department Progress Note Patient [...] Allowed to verbalize concerns. * Kristen Burton, FINISHED METAL REPAIRER - 10/19/2019 10:48 AM EDT Speech Language Pathology Facility/Department: [facility] TE[facility] Speech Language/Dysphagia Daily Therapy Note NAME: [...] refused her tylenol for nursing. Pt experienced CLOTH SHADER lastevening with period of unresponsiveness. She had audible wheezes and crackles-cxray was negative for new processes: The trachea is midline. The heart is not enlarged. No focal areas of consolidation or volume loss are seen. There are no pleural effusions. The pulmonary vasculature may be at most mildly congested. The visualized bony structures are intact. D/C to [facility] was cx. Last pm (10/17) 3L nasal [...] per plan of care. Kristen Burton M.A., [place]-FINISHED METAL REPAIRER Speech-Language Pathologist Time in 950 Time out 1031 * Clinton Deleon MD - 10/19/2019 10:48 AM EDT [facility], Pulmonary Critical Care and Sleep Medicine [address] [place], [place] [id number] Patient - Charlie Nguyen, Age - 64 y.o. - 1955 Room Number - [id number] Consulting - Max Bob DO Primary Care Physician - Moreno Oates Date of Admission - 10/03/2019 7:34 AM Hospital Day - 16 I have evaluated the patient and reviewed the case with the [employer]. I agree with the current plan of care including the workup, evaluation, management, and diagnosis. Care plan has been discussed. I independently examined and evaluated the patient. The documentation below has been reviewed and edited as needed to reflect the findings of my evaluation CLOTH SHADER was called on the patient yesterday for change in MS ABG/ Cxray reviewed follow neurologically Has been placed on empiric antibiotics Subjective/Events Past 24 hours/ROS Patient awake lying in bed. Complains of headache and nausea this morning. On 4 liters NC. Wearing BiPAP at night. CLOTH SHADER called yesterday as patient became unresponsive and [...] striatum Urine antigens negative Blood cultures- NGTD COVID- negative Radiology CXR 10/18/19 Reviewed (See actual reports for details) Active Hospital Problem List Active Hospital Problems Diagnosis Date Noted Unspecified mood (affective) disorder ([facility]) [F39] Acute respiratory failure with hypoxia ([facility]) [J96.01] Intentional drug overdose ([facility]) [T50.902A] 10/03/2019 Drug overdose, multiple drugs, accidental or unintentional, initial encounter [T50.911A] 10/03/2019 Assessment and Plan Acute hypoxic respiratory failure s/p mechanical ventilation likely r/t aspiration - Extubated 10/11 - Continue supplemental O2 to maintain SpO2 92%. Wean off as patient tolerates. - If plans are to d/c home with [facility] will need home O2 evaluation. - BD therapy - f/u CXR reviewed Unresponsive episode 10/18/19 - patient still a sleepy this morning however she is responding to questions - CLOTH SHADER was called. ABG normal. CXR no significant [...] EDT Hospitalist Progress Note 10/19/2019 7:12 AM [phone]: Please page me ([phone]) for patient care issues. [phone]: Please page [facility] night Hospitalist for any issues. Subjective: Admit Date: 10/03/2019 PCP: Moreno Oates Room#: 258/2583 Interval History: CLOTH SHADER called for unresponsiveness overnight. See significant event [...] Headache Ischemic colitis (HCC) MS (multiple sclerosis) ([facility]) Medications: ampicillin-sulbactam (UNASYN) 3 g ivpb minibag [...] up to transfer last night prior to CLOTH SHADER; Plan now for guardianshipand placement 5. Transaminitis [...] of Hospitalist Medicine Inpatient Medical Services PAGER: [phone] * Ashley Miller RN - 10/18/2019 7:13 PM EDT tulio notified of 3.1 potassium. * Ashley Miller RN - 10/18/2019 5:43 PM EDT Discharge cancelled. Patient remaining on after CLOTH SHADER called. Alford notified. * Ashley Miller RN - 10/18/2019 4:25 PM EDT NOTIFIED PATIENT'S DAUGHTER, VICENTE, OF TRANSFER [facility] TO [facility] AROUND 8PM PICKUP. * Ashley Miller RN - 10/18/2019 4:13 PM EDT REPORT GIVEN TO DEISY BARAJAS AT [facility]. ETA OF AMBULANCE IS 2000 HRS. * Ashley Miller RN - 10/18/2019 3:49 PM EDT ATTEMPTED TO CALL REPORT TO RN ON 5WEST. * Ashley Miller RN - 10/18/2019 3:46 PM EDT PATIENT GOING TO [address] . ROOM [address] [phone] (REPORT LINE). * Ashley Miller RN - 10/18/2019 3:12 PM EDT EPIC KALEIDOSCOPE ANALYST DISCONTINUED. PATIENT HAS BED NOW AT [facility] . WILL CALL REPORT DIRECTLY AND ARRANGE FOR TRANSPORT. * Kristen Burton SLP - 10/18/2019 2:07 PM EDT Speech Language Pathology Facility/Department: [facility] Initial Speech/Language/Cognitive Assessment NAME: Charlie [...] No current complaints of pain. Assessment: MoCA -[place] Cognitive Assessment. Version 7.1 Visuo-Spatial / Executive [...] perseverated on 'lillian" ..."puneet cat baby" Abstraction Subtest:06/02 Both expensive; their whores Orientation Subtest:07/07 1972 would not state month Overall Score: 4 30 Unable to complete all sections. Suggest [...] oriented to place and time. Recommendations: Requires FINISHED METAL REPAIRER Intervention: Yes Duration/Frequency of Treatment: 5 [...] Alone Type of Home: House Cognition: MoCA -[place] Cognitive Assessment. Version 7.1 Visuo-Spatial / Executive [...] perseverated on 'lillian" ..."puneet cat baby" Abstraction Subtest:06/02 Both expensive; their whores Orientation [...] PM EDT Physical Therapy Facility/Department: [facility] Daily Treatment Note NAME: Charlie Nguyen : 1955 Date of Service: 10/18/2019 General Chart Reviewed: Yes Missed reason: (Pt held secondary to being discharged to psychiatric hospital today per CM.) Doris Brink PTA * Kristen Burton SLP - 10/18/2019 1:16 PM EDT Speech Language Pathology Facility/Department: [facility] Dysphagia Treatment Note Late entry [...] alertness. Total Minutes: 20 minutes Kristen Burton M.A.CCC/FINISHED METAL REPAIRER Speech-Language Pathologist * Lisa Townsend RD, LD - 10/18/2019 11:05 AM EDT Nutrition Assessment Type and Reason for Visit: Reassess Nutrition Recommendations: 1. Continue with Dental soft. Will send chopped meats and well done/cut up vegetables. FINISHED METAL REPAIRER following. 2. Continue with Ensure high [...] time. Pt continues to have decreased PO. FINISHED METAL REPAIRER is following to ensure safe swallow [...] BUE edema; +2 pitting BLE edema 6. Windows 7 Deployment Lead Strength-Measurably reduced(per RN flowsheet assessment) Nutrition Risk Level: High Nutrient Needs: Estimated Daily Total Kcal: 7925-2971 kcals(25-28) Estimated Daily Protein (g): 66-79(1-1.2) Estimated [...] gain in 11 months (240# on 10/2018) [place] Body Wt: 145 lb (65.8 kg), % [place] Body 186 BMI Classification: BMI > or [...] Diagnosis Date Noted Unspecified mood (affective) disorder ([facility]) [F39] Acute respiratory failure with hypoxia ([facility]) [J96.01] Intentional drug overdose ([facility]) [T50.672A] 10/03/2019 Drug overdose, multiple drugs, accidental or unintentional, initial encounter [T50.000A] 10/03/2019 Goals of care -patient may lack capacity for medical decision-making. She more confused and delusional today. Strongly recommend psychiatry input for this evaluation. -surrogate decision-maker is legally her ( 5-6 years), Brayden Nguyen ([phone]). Family prefers that Vicente Driscoll (daughter) is contacted first ([phone]). She has 2 living adultchildren (Vicente and [...] issue per family -see Dr Celestin in [place] -psych following Multiple sclerosis/debility -follows with the [facility] as outpatient -uses wheelchair at baseline -outpatient [...] of Life, Remain at Home and Preserve [place]/Autonomy/Control Advance Directives: limited code- no CPR or [...] Psychiatric: Comments: Talking with bizarre tangential thoughts Golden [place] Symptom Assessment Score Golden [place] Score Pain Score 0 Tiredness Score 5 [...] 64 y.o. female who was seen for [id number] on 10/10/19 who is hospice appropriate with an expected prognosis of 6 months or less due to the following: Not applicable Write hospice narrative \\ * Kristen Howard OTA - 10/17/2019 2:55 PM EDT Occupational Therapy Facility/Department: [facility] TELEMET[facility] Daily Treatment Note NAME: Charlie Nguyen : 1955 Date of Service: 10/17/2019 Discharge Recommendations: Subacute/M[facility]p Facility, Continue to assess pending progress, LTACH [...] attending to directions;Difficulty dividing attention Memory: Decreased equipment operator intermodal yard memory;Decreased short term memory;Decreased recall of recent [...] this admission. AUGUSTINE attempted to educate pt telephone instrument supervisor button but pt not attending. Patient Goals Patient goals : improve ADL indep Therapy Time Individual Concurrent Group Co-treatment Time In 1255 Time Out 1308 Minutes 13 Timed Code Treatment Minutes: 12 Minutes(ther ex) ARTHUR Tierney * Kristen Burton, JIM - 10/17/2019 2:40 PM EDT Speech Language Pathology Facility/Department: [facility] TELEMETRY Dysphagia Treatment Note NAME: Charlie Nguyen [...] L nasal cannula-pt O2 was off when FINISHED METAL REPAIRER entered SpO2 was 87% and increased [...] don't have MS, someone lied about that." FINISHED METAL REPAIRER only asked her if she was [...] eval. Total Minutes: 21 minutes Kristen Burton M.A.CCC/FINISHED METAL REPAIRER Speech-Language Pathologist * Doris Brink, ACCOUNTING MANAGER - 10/17/2019 9:39 AM EDT Physical Therapy Facility/Department: [facility] Daily Treatment Note NAME: Charlie Nguyen : 1955 Date of Service: 10/17/2019 Discharge Recommendations: Subacute/M[facility]p Facility Assessment Assessment: Pt demonstrated an improvement [...] diagnosis was Intentional drug overdose, initial encounter ([facility]). Diagnoses of Acute hypoxemic respiratory failure ([facility]) and Leukocytosis, unspecified type were also pertinent to this visit. has a past medical history of Anxiety, Brain tumor ([facility]), Depression, GERD (gastroesophageal refluxdisease), Headache, Ischemic colitis ([facility]), and MS (multiple sclerosis) ([facility]). has a past surgical history that includes [...] attending to directions;Difficulty dividing attention Memory: Decreased equipment operator intermodal yard memory;Decreased short term memory;Decreased recall of recent [...] Brink PTA * Ching Sethi, DAGOBERTO - DOCK HAND - 10/17/2019 9:02 AM EDT [facility], Pulmonary Critical Care and Sleep Medicine [address] [place] [id number] Patient - Charlie Nguyen, Age - [...] - Regular rate and rhythm on the assignment desk assistant. Abdomen - obese. Neurologic - Awake, alert, [...] SETTIDVOL, SETPEEP LIVER PROFILE Recent Labs 10/16/19 035 AST 86* ALT 219* BILIDIR 0.0 BILITOT 0.8 ALKPHOS 131* INR No results found for: INR, PROTIME PTT No results found for: APTT Cultures Respiratory culture + MSSA Respiratory culture + Staph aureus and Corynebacterium striatum Urine antigens negative Blood cultures- NGTD COVID-19 negative Active Hospital Problem List Active Hospital Problems Diagnosis Date Noted Unspecified mood (affective) disorder ([facility]) [F39] Acute respiratory failure with hypoxia ([facility]) [J96.01] Intentional drug overdose ([facility]) [T50.902A] 10/03/2019 Drug overdose, multiple drugs, accidental or unintentional, initial encounter [T50.911A] 10/03/2019 Assessment and Plan Acute hypoxic respiratory failure s/p mechanical ventilation likely r/t aspiration - Extubated 10/11 - Continue supplemental O2 to maintain SpO2 92%. Wean off as patient tolerates. - If plans are to d/c home with [facility] will need home O2 evaluation. - BD [...] EDT Hospitalist Progress Note 10/17/2019 7:23 AM [phone]: Please page me ([phone]) for patient care issues. [phone]: Please page [facility] night Hospitalist for any [...] GERD (gastroesophageal reflux disease) Headache Ischemic colitis ([facility]) MS (multiple sclerosis) ([facility]) Medications: metoprolol 50 mg Oral BID cloNIDine [...] negative Plan -Psych re-evaluation - Placement vs [facility] -palliative care following -am labs, replace lytes prn -increase activity/PT/OT -DVT prophylaxis: [x] Lovenox [] Heparin [] SCDs [x] Encourage ambulation [] Already on Anticoagulation Advance Directive: Limited Discharge plannin-48 hours pending return visit from Psychiatry Scott Corona MD Division of Hospitalist Medicine Inpatient Medical Services PAGER: [phone] * Danisha Clinton RN - 10/17/2019 4:51 [...] refuse assessment. Dr Haro notified. * Soniya Syed, MUSHTAQ - 10/16/2019 6:11 PM EDT Patient in and out of confusion today, more so confused. Telling stories about things that do not make sense. Spoke with patients daughter who states that Charlie has called her multiple times today not making sense. Continue to reorient patient throughout the day. Morning medications refused. Patient has been refusing turning/repositioning. * Angela Callejas, MO - 10/16/2019 12:10 PM EDT Physical Therapy Facility/Department: [facility] Daily Treatment Note NAME: Charlie Nguyen : 1955 Date of Service: 10/16/2019 Discharge Recommendations: Subacute/Mcfp Facility Assessment Assessment: Pt has weak quad contraction on RLE and unable to to perform a SAQ. Pt would benefit from therapy to progress safe functional mobility REQUIRES PT FOLLOW UP: Yes Activity Tolerance Activity Tolerance: Patient limited by fatigue;Patient limited by endurance Patient Diagnosis(es): The primary encounter diagnosis was Intentional drug overdose, initial encounter ([facility]). Diagnoses of Acute hypoxemic respiratory failure ([facility]) and Leukocytosis, unspecified type were also pertinent to this visit. has a past medical history of Anxiety, Brain tumor ([facility]), Depression, GERD (gastroesophageal refluxdisease), Headache, Ischemic colitis (HCC), and MS (multiple sclerosis) ([facility]). has a past surgical history that includes [...] EDT Hospitalist Progress Note 10/16/2019 8:57 AM [phone]: Please page me ([phone]) for patient care issues. [phone]: Please page [facility] night Hospitalist for any [...] mg Subcutaneous Daily LABS: CBC: Recent Labs 10/14/1942510/15/1951510/16/19 035 WBC 19.8* 17.4* 16.7* RBC 3.86 3.88 [...] of Hospitalist Medicine Inpatient Medical Services PAGER: [phone] * Scott Corona MD - 10/15/2019 7:39 AM EDT Hospitalist Progress Note 10/15/2019 7:39 AM [phone]: Please page me ([phone]) for patient care issues. [phone]: Please page [facility] night Hospitalist for any issues. Subjective: Admit [...] 10/15/2019 0739 Last data filed at 10/15/2019 0353 Gross per 24 hour Intake Output 550 [...] of Hospitalist Medicine Inpatient Medical Services PAGER: [phone] * Shaheen Man DO - 10/14/2019 4:46 PM EDT Palliative Care Progress Note Chief Complaint: Charlie Nguyen is a 64 y.o. female with chief complaint of altered mental status. Assessment/Plan Active Hospital Problems Diagnosis Date Noted Unspecified mood (affective) disorder (HCC) [F39] Acute respiratory failure with hypoxia ([facility]) [J96.01] Intentional drug overdose (HCC) [T50.902A] 10/03/2019 Drug overdose, multiple drugs, accidental or unintentional, initial encounter [T50.901A] 10/03/2019 Goals of care -patient appears to retain capacity for medical decision-making -surrogate decision-maker is legally her ( 5-6 years), Brayden Nguyen ([phone]). She has 2 living adult children (Vicente [...] issue per family -see Dr Celestin in [place] -psych following Multiple sclerosis/debility -follows with the [facility] as outpatient -uses wheelchair at baseline -outpatient [...] of Life, Remain at Home and Preserve [place]/Autonomy/Control Advance Directives: limited code- no CPR or [...] response to questions, appears flat and depressed [place] Symptom Assessment Score [place] Score Pain Score 0 Tiredness Score 5 [...] 64 y.o. female who was seen for [id number] on 10/10/19 who is hospice appropriate with an expected prognosis of 6 months or less due to the following: Not applicable Write hospice narrative \\ * Kristen Burton, FINISHED METAL REPAIRER - 10/14/2019 1:28 PM EDT Speech Language Pathology Facility/Department: [facility] TELE[facility] Dysphagia Treatment Note NAME: Charlie Nguyen [...] of encouragement. Pt accepted 1/2 piece of Montenegrin toast, 6 b ites of cottage cheese, [...] (recline slightly) Total Minutes: 30minutes Kristen Burton M.A.CCC/FINISHED METAL REPAIRER Speech-Language Pathologist * Max Bob, - 10/14/2019 12:08 PM EDT Hospitalist Progress Note 10/14/2019 12:08 PM [phone]: Please page me ([phone]) for patient care issues. [phone]: Please page [facility] night Hospitalist for any issues. Subjective: Admit Date: 10/03/2019 PCP: Moreno Oates Room#: [id number] Interval History: Patient transferred out of ICU [...] mg Subcutaneous Daily LABS: CBC: Recent Labs 10/12/1940710/13/1932610/14/19425 WBC 9.4 15.9* 19.8* RBC 3.36* 3.78* [...] of Hospitalist Medicine Inpatient Medical Services PAGER: [phone] * Kristen Burton, FINISHED METAL REPAIRER - 10/14/2019 11:35 AM EDT Speech Language Pathology Attempted at 10:30. Pt continue very flat with limited participation. Will attempt again at later time. Kristen Burton MA, [facility]-FINISHED METAL REPAIRER Speech-Language Pathologist * Lisa Townsend, JULIA, LD - 10/14/2019 10:01 AM EDT Nutrition Assessment Type and Reason for Visit: Reassess Nutrition Recommendations: 1. Continue with Dental soft diet. FINISHED METAL REPAIRER following to ensure safe swallowing. 2. [...] from ICU and extubated at this time. FINISHED METAL REPAIRER is following pt on Dental soft [...] fluid accumulation, Extremities(+2-2 pitting all ext) 6. Windows 7 Deployment Lead Strength-Not measured Nutrition Risk Level: High Nutrient Needs: Estimated Daily Total Kcal: 7535-1929 kcals(25-28) Estimated Daily Protein (g): 66-79(1-1.2) Estimated [...] lbs. incr 30 lbs in 11 mo? [place] Body Wt: 145 lb (65.8 kg), % [place] Body 186 BMI Classification: BMI 35.0 - [...] Number: [id number] * Ching Sethi APRN - DOCK HAND - 10/14/2019 9:11 AM EDT [facility], Pulmonary Critical Care and Sleep Medicine [address] [place], [place] [id number] Patient - Charlie Nguyen, Age - 64 y.o. - 1955 Room Number - [id number] Consulting - Max Bob DO Primary Care Physician - Moreno Oates Date of Admission - 10/03/2019 7:34 AM Hospital Day - 11 Subjective/Events Past 24 hours/ROS Patient awake lying in bed. research assistant professor at bedside checking vitals. 96% on 3 [...] ondansetron, acetaminophen Labs CBC Recent Labs 10/14/19 0426 WBC 19.8* HGB 12.2 HCT 37.4 MCV 96.9 PLT 669* BMP: Recent Labs 10/14/19 0426 NA 141 K 3.1* CL 105 CO2 [...] Diagnosis Date Noted Unspecified mood (affective) disorder ([facility]) [F39] Acute respiratory failure with hypoxia ([facility]) [J96.01] Intentional drug overdose ([facility]) [T50.902A] 10/03/2019 Drug overdose, multiple drugs, accidental [...] patient and reviewed the case with the [employer]. I agree with the current plan of [...] 4:11 PM EDT Speech Language Pathology Facility/Department: [facility] Dysphagia Treatment Note NAME: Charlie [...] water. Total Minutes: 22 minutes Kristen Burton M.A.CCC/FINISHED METAL REPAIRER Speech-Language Pathologist * Shaheen Man DO - 10/13/2019 3:38 PM EDT Palliative Care Progress Note Chief Complaint: Charlie Nguyen is a 64 y.o. female with chief complaint of altered mental status. Assessment/Plan Active Hospital Problems Diagnosis Date Noted Unspecified mood (affective) disorder (HCC) [F39] Acute respiratory failure with hypoxia ([facility]) [J96.01] Intentional drug overdose (HCC) [T50.902A] 10/03/2019 Drug overdose, multiple drugs, accidental or unintentional, initial encounter [T50.911A] 10/03/2019 Goals of care -patient appears to retain capacity for medical decision-making -surrogate decision-maker is legally her ( 5-6 years), Brayden Nguyen ([phone]). She has 2 living adult children (Vicente [...] -psych following Multiple sclerosis/debility -follows with the [facility] as outpatient -uses wheelchair at baseline -requesting records from [facility] Palliative care encounter -DNRCCA/DNI->ordered as limited code [...] of Life, Remain at Home and Preserve [place]/Autonomy/Control Advance Directives: limited code- no CPR or intubation, okay for NIV Surrogate: Spouse Prognosis: unknown Spiritualassessment: No spiritual distress identified Bereavement and grief: To Be Determined ROS: See palliative care ROS/ESAS below; see HPI Review of Systems Social history: Campbell status: no Marital status: , 5-6 years [...] time. Psychiatric: Comments: No anxiety or agitation Golden [place] Symptom Assessment Score [place] Score Pain Score 0 Tiredness Score 5 [...] 64 y.o. female who was seen for [id number]-bn-ampm on 10/10/19 who is hospice appropriate with an expected prognosis of 6 months or less due to the following: Not applicable Write hospice narrative \\ * Sandie Taylor, OT - 10/13/2019 1:20 PM EDT Occupational Therapy Occupational Therapy Initial Assessment Date: 10/13/2019 Patient Name: Charlie Nguyen : 1955 Date of Service: 10/13/2019 Discharge Recommendations: Subacute/Mcfp Facility, Continue to assess pending progress, LTACH [...] Ischemic colitis (HCC), and MS (multiple sclerosis) ([facility]). has a past surgical history that includes [...] baby wipes per self, transfers self to [facility] via couch) Homemaking Assistance: (son brings her food in am and after work daily) Homemaking Responsibilities: (she is unable, daughter reports not getting done) Ambulation Assistance: (does not ambulate) Transfer Assistance: Independent Active International Controller: No Patient's International Controller Info: son Occupation: On disability Additional Comments: [...] attending to directions;Difficulty dividing attention Memory: Decreased residential memory;Decreased short term memory;Decreased recall of recent [...] ADL Inpatient CMS G-Code Modifier : CL (10/13/19 130) Goals [...] with PT) Time Out 1128 Minutes 14 Sanide Taylor OT * Byron Jackson, PT - 10/13/2019 1:20 PM EDT Physical Therapy Facility/Department: [facility] Initial Assessment NAME: Charlie BURGESS: 1955 Date of Service: 10/13/2019 Discharge Recommendations: Subacute/Mcfp Facility Assessment Body structures, Functions, Activity limitations: Decreased functional mobility ;Decreased strength;Decreased endurance;Decreased cognition;Decreased ROM;Decreased ADL status Assessment: Pt admitted for being unresponsive at home. 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 via couch) Homemaking Assistance: (son brings her food in am and after work daily) Homemaking Responsibilities: (she is unable, daughter reports not getting done) Ambulation Assistance: (does not ambulate) Transfer Assistance: Independent Active International Controller: No Patient's International Controller Info: son Occupation: On disability Additional Comments: [...] attending to directions;Difficulty dividing attention Memory: Decreased residential memory;Decreased short term memory;Decreased recall of recent [...] 17 [facility]. Goals and/or treatment plan was [...] of the pt. Room. * Nick Stover, [facility] - 10/13/2019 9:23 AM EDT Patient Evaluation [...] y.o. - 1955 Room Number - [id number] [facility] - [id number] Date of Admission - 10/03/2019 7:34 AM [...] Diagnosis Date Noted Unspecified mood (affective) disorder ([facility]) [F39] Acute respiratory failure with hypoxia ([facility]) [J96.01] Intentional drug overdose (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 * Kristen Burton, FINISHED METAL REPAIRER - 10/12/2019 2:38 PM EDT Speech Language Pathology Facility/Department: [facility] CLINICAL BEDSIDE SWALLOW EVALUATION NAME: [...] one diet consistency restricted Treatment Plan Requires FINISHED METAL REPAIRER Intervention: Yes Duration/Frequency of Treatment: 2 visits D/C Recommendations: Inpatient rehabilitation(psych rehab suspected) Referral To: (Psych Eval, pending s/p extubation) Recommended Diet and Intervention Diet Solids Recommendation: Dental Soft Liquid Consistency Recommendation: Thin Recommended Form of Meds: PO Recommendations: Assist feed Therapeutic Interventions: Patient/Family education;Therapeutic PO trials with FINISHED METAL REPAIRER;Diet tolerance monitoring Compensatory Swallowing Strategies Compensatory [...] recommendations: Patient;RN Education Patient Education: Role of FINISHED METAL REPAIRER, recommendations and need for assist Patient Education Response: Verbalizes understanding;Needs reinforcement Safety Devices in place: Yes Type of devices: Other (comment)(sitter at bedside or safety) Therapy Time FINISHED METAL REPAIRER Individual Minutes Time In: 1338 Time [...] legally her ( 5-6 years), Brayden Nguyen ([phone]). She has 2 living adult children (Vicente [...] consult pending Multiple sclerosis/debility -follows with the [facility] as outpatient -uses wheelchair at baseline -requesting records from [facility] Palliative care encounter -DNRCCA/DNI->ordered as limited code [...] mental status Review of Systems Social history: Campbell status: no Marital status: , 5-6 years [...] time. Psychiatric: Comments: No anxiety or agitation [place] Symptom Assessment Score [place] Score Pain Score 0 Tiredness Score 5 [...] 64 y.o. female who was seen for [id number]-zd-[id number] on 10/10/19 who is hospice appropriate with an expected prognosis of 6 months or less due to the following: Not applicable Write hospice narrative \\ * Renay Calix RCP - 10/12/2019 9:27 AM EDT [facility] Respiratory Care Department Progress Note Spontaneous [...] y.o. 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 She has 2 living adult children (Vicente and Art) who are involved, but are NOT legally decision-makers -see consult note 10/10/19 -updated family via phone that patient would not be extubated today. Will follow-up tomorrow by phone. Acute respiratory failure with hypoxia -2/2 encephalopathy/drug overdose/pneumonia -SARS-CoV-2 negative -intubated 10/03/19-10/09/19, failed HFNC/NIV, reintubated 5/10/20 -passed SBT today, but not extubated due to secretions Acute metabolic encephalopathy -multifacotiral MSSA pneumonia -s/p bronch 10/06/19 due to copious secretions -IV abx per primary Intentional drug overdose -reported in chart -psych consult pending Depression/anxiety -longstanding issue per family -psych consult pending Multiple sclerosis/debility -follows with the [facility] as outpatient -uses wheelchair at baseline -unclear [...] dry. Psychiatric: Comments: No anxiety or agitation [place] Symptom Assessment Score [place] Score Pain Score See FLACC Tiredness Score [...] 64 y.o. female who was seen for hnxu-fp-epla on 10/10/19 who is hospice appropriate with an expected prognosis of 6 months or less due to the following: Not applicable Write hospice narrative \\ * Devin Levine RCP - 10/11/2019 8:20 AM EDT [facility] Respiratory Care Department Progress Note Spontaneous [...] 64 y.o. 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 Windows 7 Deployment Lead Strength-Not measured Nutrition Risk Level: High Nutrient Needs: Estimated Daily Total Kcal: 5040-6864 Estimated Daily Protein (g): 79-132 Estimated Daily [...] lbs. incr 30 lbs in 11 mo? [place] Body Wt: 145 lb (65.8 kg), % [place] Body 186 Adjusted Body Wt: , body [...] Urias RCP - 10/10/2019 8:52 AM EDT [facility] Respiratory Care Department Progress Note Spontaneous [...] y.o. 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 Pt HOB [id number] degrees and cough/deep breathing encouraged. Bilateral soft wrist restraints removed. OG discontinued. Will continue to monitor. * Kimberli Delvalle RCP - 10/09/2019 8:57 AM EDT [facility] Respiratory Care Department Progress Note Spontaneous [...] 10/09/2019 7:09 AM EDT Critical Care Note: [facility], Pulmonary Critical Care and Sleep Medicine [address] [place] [address] Patient - Charlie Nguyen, Age - 64 y.o. - 1955 Room Number - 232/2329 [facility] - [id number] [facility] # - [id number] Date of Admission - 10/03/2019 7:34 AM [...] In: 1867.5 [I.V.:477.5; NG/GT:790; IV Piggyback:600] Out: 2125 [Urine:2125] No data found. Drains/Tubes Outputs reviewed Lines, [...] Goodrich RCP - 10/08/2019 1:42 PM EDT [facility] Respiratory Care Department Progress Note Spontaneous [...] 10/08/2019 9:51 AM EDT Critical Care Note: [facility], Pulmonary Critical Care and Sleep Medicine [address] [place] [address] Patient - Charlie Nguyen, Age - 64 y.o. - 1955 Room Number - [address] [place], [place] [address] [facility] - [id number] Date of Admission - 10/03/2019 7:34 AM [...] Out: 2460 [Urine:2460] Date 10/08/19 0000 - 10/08/192358 Shift 9746-5307 0779-7665 4905-2536 24 Hour Total INTAKE I.V.(mL/kg) 316(2.6) 316(2.6) [...] dexmedetomidine (PRECEDEX) IV infusion 1.3 mcg/kg/hr (10/08/19 0551) chlorhexidine 15 mL Mouth/Throat BID ampicillin-sulbactam 3 [...] Output 1265 ml Net 4983.18 ml 10/05 0701 - 10/06 0700 In: 5622.2 [I.V.:4936.2] Out: [...] > 10 cm H2O * Amada Ching, MUSHTAQ - 10/06/2019 12:30 PM EDT Bronchoscopy performed at bedside with Judy Lincoln with respiratory at bedside Tolerated well medicated per physician order specimen obtained report given to Carmine barajas in no acute distress * Dulce Maria Chawla RD, LD - 10/06/2019 11:21 AM EDT [...] Fluid Accumulation-Mild fluid accumulation, Extremities(+2 ble) 6. Windows 7 Deployment Lead Strength-Not measured Nutrition Risk Level: High Nutrient Needs: Estimated Daily Total Kcal: 4443-3851 Estimated Daily Protein (g): 79-132 Estimated Daily [...] wbc 11.6,alb 2.8, ca 7.8, corrected ca8.52 n,[id number], jacinto 13:+2 ble, last bm Wound Type: [...] lbs. incr 30 lbs in 11 mo? [place] Body Wt: 145 lb (65.8 kg), % [place] Body 186 Adjusted Body Wt: , body [...] 6:27 AM Subjective: Admit Date: 10/03/2019 PCP: Moerno Oates Chief Complaint Patient presents with Loss [...] 10/05/2019 10:00 PM EDT Patient RASS -3/-4. [employer] aware. Patient shows signs of agitation and [...] patient did indeed make a request to Telepo restricting future information releases. Spoke with social service on-call, she will review the chart and get back with the care team with anything of note. Jame Bocanegra - Shirt Turner documented in this encounter Assessments Diagnosis Infection [...] food or vomitus Hospital Course * Yamilka Yeboah APRN - BENJAMIN - 02/03/2020 12:05 PM EDT Discharge Summary [...] FTT. [place] [facility] for [place] arthritis. She underwent arthrotomy/poly exchange and wasdischarged to SNF[facility] w/IV ATB back in November. In the [...] DISCHARGE MEDICATIONS: Charlie Nguyen Home Medication Instructions LULU:[id number] Printed on:02/03/20 2684 Medication Information apixaban (ELIQUIS) 5 MG TABS [...] Complexity: follow up within 7-14 calendar days (39150) [x] Severe Complexity: follow up within 7 calendar days (45052) FOLLOW UP TESTING, PENDING RESULTS OR REFERRALS AT TRANSITIONAL CARE VISIT: [x] Yes [] No PENDING STUDIES: No DISPOSITION: SNF FACILITY/HOME CARE AGENCY NAME: [facility] Follow up with Moreno Oates INSTRUCTIONS TO ANA MARIA/LOREN: Please call patient on day after discharge [...] over cough, mental status improved. Transferred to [facility] Consults: Neurology, Critical care and Psychiatry Discharge Instructions: Follow social distancing to prevent COVID 19 disease spread, wash hands frequently with either soap and water (preferred) or hand pv design and installation technician for atleast 20 seconds Diet: DIET GENERAL; [...] Discharge Medications: Charlie Nguyen Home Medication Instructions LULU:[id number] Printed on:10/25/19 1417 Medication Information Acetaminophen-Aspirin Buffered (EXCEDRIN BACK & BODY) 250-250 MG TABS Take 2 tablets by mouth every 6 hours as needed amoxicillin-clavulanate (AUGMENTIN) 875-125 MG per tablet Take 1 tablet by mouth every 12 hours for 2 days Blood Pressure Monitoring (B-D ASSURE BPM/AUTO ARM CUFF) [facility] Use as directed [...] as soon as possible for a visit [facility] [phone] Complexity of Follow up: [] Moderate Complexity: follow up within 7-14 calendar days (06000) [x] Severe Complexity: follow up within 7 calendar days (39260) Follow up Testing, Pending results or Referrals [...] PM This report was created using the Dataminr Speaking voice- activated system. 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) C71.9 Hypertension I10 Chronic nonintractable headache R51 Intentional drug overdose ([facility]) T50.902A Drug overdose, multiple drugs, accidental or unintentional, initial encounter T50.911A Acute respiratory failure with hypoxia ([facility]) J96.01 Unspecified mood (affective) disorder ([facility]) F39 Procedures: CVC, Intubation, CXR, Ct Cervical [...] by both psychiatry and internal medicine at [facility] in the Geriatric pscyh unit under Dr. Solis on 10/18/2019. See [...] Discharge Medications: Charlie Nguyen Home Medication Instructions LULU:[id number] Printed on:10/18/19 0142 Medication Information Acetaminophen-Aspirin Buffered (EXCEDRIN BACK & BODY) 250-250 MG TABS Take 2 tablets by mouth every 6 hours as needed Blood Pressure Monitoring (B-D ASSURE BPM/AUTO ARM CUFF) [facility] Use as directed to monitor BP metoprolol [...] Complexity: follow up within 7-14 calendar days (42761) [x] Severe Complexity: follow up within 7 calendar days (81285) Follow up Testing, Pending results or Referrals [...] frame. Signed: Scott Corona MD [facility] 10/18/2019, 4:43 [...] at most local grocery stores, pharmacies, and [employer]-stores. ? If you have any questions about [...] Nurse: Delisa Guaman RN Discharging Hospital Unit/Room#: 729/4644 Discharging Unit Emergency Contact: Extended Emergency Contact Information Primary Emergency Contact: Vicente [facility] Mobile Relation: Child Past Surgical History: Past Surgical History: Procedure Laterality Date BRONCHOSCOPY 10/06/2019 HYSTERECTOMY KNEE SURGERY Right 06/2016 TUBAL LIGATION Immunization History: Immunization History Administered Date(s) Administered Influenza Vaccine, unspecified formulation 02/15/2016 Influenza Virus Vaccine 03/24/2015 Tdap (Boostrix, Adacel) 12/06/2016 Active Problems: Patient Active Problem List Diagnosis Code Migraine G43.909 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) C71.9 Hypertension I10 Chronic nonintractable headache R51 Intentional drug overdose ([facility]) T50.902A Drug overdose, multiple drugs, accidental or unintentional, initial encounter T50.911A Acute respiratory failure with hypoxia ([facility]) J96.01 Unspecified mood (affective) disorder ([facility]) F39 Palliative care encounter Z51.5 Aspiration pneumonia ([facility]) J69.0 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[facility]) T84.53XA Generalized weakness R53.1 Benzodiazepine dependence ([facility]) F13.20 Isolation/Infection: Isolation No Isolation Patient Infection [...] Dependent Dressing Dependent Toileting Dependent Feeding Dependent Side Stapler Dependent Med Delivery whole Wound Care Documentation [...] are sent with patient): None RN SIGNATURE: Regulo CAR RIDER/SOCIAL WORK SECTION Inpatient Status Date: 01/30/2020 Readmission Risk Assessment Score: Readmission Risk Risk of Unplanned Readmission: 33 Discharging to Facility/ Agency Name: [facility] Address:[address] [place] [address] Dialysis Facility (if applicable) Name: Address: Dialysis Schedule: Phone: Fax: Conference Specialist/Science And Operations Officer signature: PHYSICIAN SECTION Prognosis: Good Condition at Discharge: Stable Rehab Potential (if transferring to Rehab): Good Recommended Labs or Other Treatments After Discharge: N/A Physician Certification: I certify the above information and transfer of Charlie Nguyen is necessaryfor the continuing treatment of the diagnosis listed and that she requires Mcfp Facilityfor greater 30 days. Update Admission H&P: No change in H&P PHYSICIAN SIGNATURE: * Attachments The following attachments cannot be sent through Care Everywhere. * Knee Pain or Injury (Icelandic) documented in this encounter* Pharmacy* Fadumo Hernandez RPH - 10/04/2019 9:13 AM EDT * Discharge Instr - CLYDE* Gina Mendoza MD - 10/03/2019 4:12 PM EDT Continuity of Care Form Patient Name: Charlie Nguyen : 1955 Admit date: 10/03/2019 Discharge date: Code Status Order: Full Code Advance Directives: Admitting Physician: Rajendra Kim MD PCP: Moreno Oates Discharging Nurse: Discharging Hospital Unit/Room#: 232/2329 Discharging Unit Phone Number: Emergency Contact: Extended Emergency Contact Information Primary Emergency Contact: Vicente [facility] Relation: Child Past Surgical History: Past Surgical History: Procedure Laterality Date HYSTERECTOMY KNEE SURGERY Right 06/2016 TUBAL LIGATION Immunization History: Immunization History Administered Date(s) Administered Influenza Vaccine, unspecified formulation 02/15/2016 Influenza Virus Vaccine 03/24/2015 Tdap (Boostrix, Adacel) 12/06/2016 Active Problems: Patient Active Problem List Diagnosis Code Migraine G43.909 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) C71.9 Hypertension I10 Chronic nonintractable headache R51 Intentional drug overdose ([facility]) T50.902A Drug overdose, multiple drugs, accidental or [...] Status: {IP PT MENTAL STATUS:} IV Access: {[facility] IV ACCESS:[id number]} Nursing Mobility/ADLs: Walking Dependent Transfer Dependent Bathing Dependent Dressing Dependent Toileting Dependent Feeding Dependent Side Stapler Dependent Med Delivery whole Wound Care Documentation [...] Dental Soft Routes of Feeding: Oral Liquids: {Inbound Ingredient Logistics Specialist liquid thickness:18544} Daily Fluid Restriction: no Last Modified Barium Swallow with Video (Video Swallowing Test): not done Treatments at the Time of Hospital Discharge: Respiratory Treatments: Oxygen Therapy: 4 LITERS NC Ventilator: - No ventilator support Rehab Therapies: {THERAPEUTIC INTERVENTION:[id number]} Weight Bearing Status/Restrictions: No weight bearing restirctions Other Medical Equipment (for information only, NOT a DME order): {EQUIPMENT:954144939} Other Treatments: Patient's personal belongings (please select all that are sent with patient): None, Dentures {DESC; UPPER/LOWER/BOTH:43369} RN SIGNATURE: CASE MANAGEMENT/SOCIAL WORK SECTION Inpatient Status Date: Readmission Risk Assessment Score: Readmission Risk Risk of Unplanned Readmission: 14 Discharging to Facility/ Agency Name: [facility] Address: [address] [place] [address] ( Zafar Halie) Dialysis Facility (if applicable) Name: Address: Dialysis Schedule: Phone: Fax: Conference Specialist/Science And Operations Officer signature: PHYSICIAN SECTION Prognosis: Good Condition at [...] of any of these drugs: Prescription medicines Gown-rzg-ezigwkk medicines Alcohol Illegal drugs Taking some drugs [...] Where can you learn more? Go to [email or web address] and sign in to your Stackify account. Enter B109 in the Search Health Information box to learn more about Use of Multiple Drugs: Care Instructions. If you do not have an account, please click on the "Sign Up Now" link. Current as of: January 19, 2019Content Version: 12.4 [employer]. Care instructions adapted under license by AboutOne. If you have questions about a medical condition or this instruction, always ask your healthcare professional. [employer] disclaims any warranty or liability for your [...] EXTREMITY W/O CONTRAST MATERIAL Debbie Batista PA-C [address] [place] [address] Ct Imaging Referral ID Status Reason Start Date Expiration Date V isits Requested Visits Authorized [id number] Closed Auto-Generate d Referral 06/09/2022 05/31/2023 1 1 Additional Source Comments INFORMATION SOURCE (unrecogn ized section and content) DATE CREATED AUTHOR 11/06/2018 [facility] [place] DATE CREATED AUTHOR AUTHOR'S ORGANIZ ATION 12/22/2019 [facility] DATE CREATED AUTHOR AUTHOR'S ORGANIZ ATION 01/12/[address] [facility] DATE CREATED AUTHOR AUTHOR'S ORGANIZ ATION 03/01/2021 [facility] DATE CREATED AUTHOR AUTHOR'S ORGANIZ ATION 03/24/2022 [facility] DATE CREATED AUTHOR AUTHOR'S ORGANIZ ATION 06/16/2022 [facility] DATE CREATED AUTHOR AUTHOR'S ORGANIZ ATION 01/23/2023 [facility] DATE CREATED AUTHOR AUTHOR'S ORGANIZ ATION 10/26/[address] [facility] DATE CREATED AUTHOR AUTHOR'S ORGANIZ ATION 01/22/2025 [facility] DATE CREATED AUTHOR AUTHOR'S ORGANIZ ATION 02/04/2025 [facility] Reason for Visit (unrecogniz ed section and content) Reason Comments Joint Swelling Pt was sent in from [facility] for ortho consult to rule [...] pharmacy Reason Comments Outside Lab Results from [facility] Reason Comments Orders request for sign off [...] Refill Request Reason Comments Outside Lab Results [facility] Reason Comments Orders Controlled medicatio n request from [facility] Reason Comments Orders Pharmacy Recommendat ion [facility] Reason Comments Orders prescription request Reason Comments Orders Medication [facility] Reason Comments Refill Request [facility] Reason Comments Orders [facility] Reason Comments Refill Request Future fill from the pharmacy Reason Comments Orders [facility] [place] Reason Comments Diagnositic mammogram and US orders Reason Onset Date Comments Opened In Error 03/18/2022 Reason Comments Orders Mammogram orders [facility] Reason Comments medication orders [facility] Reason Comments Medication Request [facility] Oxycodone/apap Reason Comments Outside Labs Results [facility] Reason Comments Orders [facility] Reason Onset Date Comments Refill Request 06/25/2022 Reason Comments Patient Update [facility] [place] 07/05/22 Reason Comments Outside Lab Results [facility] 07/14/22 Reason Onset Date Comments Refill Request 07/21/2022 Reason Comments Orders Reason Onset Date Comments Refill Request 07/29/2022 Reason Comments Received Outside Medical Records [facility] Diagnoses / Procedures Referred By Contact Referred To Contact [facility] Diagnoses Follow up CT scan left knee Procedures est patient Debbie Batista PA-C [address] [place] [address] [facility] [address] [place] [address] Referral ID Status Reason Start Date Expiration Date Visits Requested Visits Authorized [id number] Pending Review OON/Self Pay Override 07/21/2022 01/17/2023 1 1 Reason Comments Medication Request [facility] Ox ycodone apap 5-325 mg 1 tab every 6 hours Reason Comments Medication Request [facility] Reason Comments Medication Request [facility] ([facility]) Reason Comments Clinical Symptoms Reason Comments Received Outside Medical Records [facility] ([facility]) Labs Reason Comments Received Outside Medical Records [facility] ([facility]) Chest x-ray 11/04/2022 Reason Comments Leg Swelling Pt brought [facility] for swelling in her L ankle and discoloration in her foot. Pt denies trauma to affected extremity. Pt reports Hx blood clots in her R leg. Reason Comments Orders [facility] Patient page ving extreme pain in left leg asking for an increase in percocet to every 4 hours. Reason Comments Received Outside Medical Records [facility] Vascular Surgery 12/15/22 Reason Comments Nurse Triage Call Reason Comments Received Outside Medical Records [facility] ([facility]) Labs 12/30/2022 Reason Onset Date Comments Refill Request 01/01/2023 Reason Comments Received Outside Medical Records Lab res ults from [facility]/ [facility] Lab Reason Onset Date Comments Refill Request 01/13/2023 Reason Comments Received Outside Medical Records [facility] Lower extremity venous duplex 01/21/2023 Reason Comments Medication Request Reason Comments Received Outside Medical Records Lab res ults 02/09/23 [facility] Reason Comments Received Outside Medical Records [facility] ([facility]) Labs 04/06/2023 Reason Comments Received Outside Medical Records [facility] ([facility]) Labs 05/11/2023 Reason Onset Date Comments Refill Request 07/30/2023 Reason Onset Date Comments Refill Request 07/31/2023 Reason Comments Outside Labs Results [facility]/ [facility] Reason Comments Received Outside Medical Records [facility] Order to increase Zofran from 4 mg to 8 mg Q8 hr prn Reason Onset Date Comments Refill Request 09/25/2023 Reason Onset Date Comments Refill Request 10/07/2023 Reason Comments Outside Lab Results [facility] 10/12/23 Reason Onset Date Comments Refill Request 10/27/2023 Reason Comments Received Outside Medical Records [facility] 11/09/2023 Reason Onset Date Comments Refill Request 12/30/2023 Reason Onset Date Comments Refill Request 01/27/2024 Reason Comments Radio Gen RMP Specialty Diagnoses / Procedures Referred By Andrea t Referred To Contact XR IMAGING Diagnoses Status post total left knee replacement Procedures XR KNEE POST OP 3V AP/LAT/MERCHANT LEFT RADIOLOGIC EXAMINATION KNEE 3 VIEWS Debbie Batista PA-C [address] [place] [address] [place] [address] Referral ID Status Reason Start Date Expiration Date V isits Requested Visits Authorized [id number] Closed Auto-Generated Referral Financial Clearance Not Required 05/21/2022 06/20/2023 1 1 Reason Onset Date Comments Refill Request 02/26/2024 Reason Onset Date Comments Opened In Error 02/29/2024 Reason Comments Orders [facility] Reason Onset Date Comments Refill Request 03/24/2024 Reason Onset Date Comments Refill Request 03/25/2024 Reason Onset Date Comments Refill Request 03/31/2024 Reason Comments Received Outside Medical Records [facility] 04/11/2024 Reason Onset Date Comments Refill Request 04/22/2024 Reason Onset Date Comments Refill Request 04/21/2024 Reason Onset Date Comments Refill Request 05/23/2024 Reason Onset Date Comments Refill Request 06/23/2024 Reason Comments Received Outside Medical Records [facility] 07/12/2024 Reason Onset Date Comments Refill Request 07/22/2024 Reason Onset Date Comments Refill Request 08/18/2024 Reason Onset Date Comments Refill Request 09/16/2024 Reason Onset Date Comments Refill Request 10/14/2024 Reason Onset Date Comments Refill Request 11/10/2024 Reason Onset Date Comments Refill Request 11/18/2024 Reason Comments Headache Reason Onset Date Comments Refill Request 12/15/2024 Reason Comments Received Outside Medical Records [facility] [place] [facility] Reason Comments Outside Lab Results [facility] Reason Onset Date Comments Refill Request 01/13/2025 Reason Comments Medication Request Rescue inhaler Scheduled Active and Recently Administ ered Medications (unrecognized section and content) Medication Order 12/17/2020 12/18/2020 12/19/2020 clindamycin (CLEOCIN) 600 mg in dextrose 5 % 50 mL IVPB (COMPLETED) 600 mg, Intravenous, ONCE, 1 dose, On Thu12/18/20 at 2246 2318 (New Bag - Provider: Nathaly Miller, MUSHT[employer])2348 (Stopped - Provider: Serenity Coyne RN) oxyCODONE-acetaminophen [...] open or using other rapid infusion mechanism. 1940 (New Bag - Provider: Chantal Walton RN)2239 [...] 1915 1932 (New Bag - Provider: Chantal Walton RN)224 (Stopped - Provider: Delmy Lawson RN) sodium [...] On 01/05/21 at 1915, For 1 dose 2251 (New Bag - Provider: Chantal Walton RN) 020 (Stopped - Provider: Delmy Lawson, [employer]HT[employer]) PRN Medication Order 01/04/2021 01/05/2021 01/06/2021 0.9 [...] or prosecute any alcohol or drug abuse patient.[facility]In the event this information is protected by the Federal Confidentiality of Alcohol and Drug Abuse Patient Records regulations: The Federal rules restrict any use of the information to criminally investigate or prosecute any alcohol or drug abuse patient.[facility] HospitalIn the event this information is protected by the Federal Confidentiality of Alcohol and Drug Abuse Patient Records regulations: The Federal rules restrict any use of the information to criminally investigate or prosecute any alcohol or drug abuse patient.[facility] HospitalIn the event this information is protected by the Federal Confidentiality of Alcohol and Drug Abuse Patient Records regulations: The Federal rules restrict any use of the information to criminally investigate or prosecute any alcohol or drug abuse patient.[facility] HospitalIn the event this information is protected by the Federal Confidentiality of Alcohol and Drug Abuse Patient Records regulations: The Federal rules restrict any use of the information to criminally investigate or prosecute any alcohol or drug abuse patient.[facility] HospitalIn the event this information is protected by the Federal Confidentiality of Alcohol and Drug Abuse Patient Records regulations: The Federal rules restrict any use of the information to criminally investigate or prosecute any alcohol or drug abuse patient.[facility] HospitalIn the event this information is protected by the Federal Confidentiality of Alcohol and Drug Abuse Patient Records regulations: The Federal rules restrict any use of the information to criminally investigate or prosecute any alcohol or drug abuse patient.[facility] HospitalIn the event this information is protected by the Federal Confidentiality of Alcohol and Drug Abuse Patient Records regulations: The Federal rules restrict any use of the information to criminally investigate or prosecute any alcohol or drug abuse patient.[facility] HospitalIn the event this information is protected by the Federal Confidentiality of Alcohol and Drug Abuse Patient Records regulations: The Federal rules restrict any use of the information to criminally investigate or prosecute any alcohol or drug abuse patient.[facility] HospitalIn the event this information is protected by the Federal Confidentiality of Alcohol and Drug Abuse Patient Records regulations: The Federal rules restrict any use of the information to criminally investigate or prosecute any alcohol or drug abuse patient.[facility] HospitalIn the event this information is protected by the Federal Confidentiality of Alcohol and Drug Abuse Patient Records regulations: The Federal rules restrict any use of the information to criminally investigate or prosecute any alcohol or drug abuse patient.[facility] HospitalIn the event this information is protected by the Federal Confidentiality of Alcohol and Drug Abuse Patient Records regulations: The Federal rules restrict any use of the information to criminally investigate or prosecute any alcohol or drug abuse patient.[facility] HospitalIn the event this information is protected by the Federal Confidentiality of Alcohol and Drug Abuse Patient Records regulations: The Federal rules restrict any use of the information to criminally investigate or prosecute any alcohol or drug abuse patient.[facility] HospitalIn the event this information is protected by the Federal Confidentiality of Alcohol and Drug Abuse Patient Records regulations: The Federal rules restrict any use of the information to criminally investigate or prosecute any alcohol or drug abuse patient.[facility] HospitalIn the event this information is protected by the Federal Confidentiality of Alcohol and Drug Abuse Patient Records regulations: The Federal rules restrict any use of the information to criminally investigate or prosecute any alcohol or drug abuse patient.[facility] HospitalIn the event this information is protected by the Federal Confidentiality of Alcohol and Drug Abuse Patient Records regulations: The Federal rules restrict any use of the information to criminally investigate or prosecute any alcohol or drug abuse patient.[facility] HospitalIn the event this information is protected by the Federal Confidentiality of Alcohol and Drug Abuse Patient Records regulations: The Federal rules restrict any use of the information to criminally investigate or prosecute any alcohol or drug abuse patient.[facility] HospitalIn the event this information is protected by the Federal Confidentiality of Alcohol and Drug Abuse Patient Records regulations: The Federal rules restrict any use of the information to criminally investigate or prosecute any alcohol or drug abuse patient.[facility] HospitalIn the event this information is protected by the Federal Confidentiality of Alcohol and Drug Abuse Patient Records regulations: The Federal rules restrict any use of the information to criminally investigate or prosecute any alcohol or drug abuse patient.[facility] HospitalIn the event this information is protected by the Federal Confidentiality of Alcohol and Drug Abuse Patient Records regulations: The Federal rules restrict any use of the information to criminally investigate or prosecute any alcohol or drug abuse patient.[facility] HospitalIn the event this information is protected by the Federal Confidentiality of Alcohol and Drug Abuse Patient Records regulations: The Federal rules restrict any use of the information to criminally investigate or prosecute any alcohol or drug abuse patient.[facility] HospitalIn the event this information is protected by the Federal Confidentiality of Alcohol and Drug Abuse Patient Records regulations: The Federal rules restrict any use of the information to criminally investigate or prosecute any alcohol or drug abuse patient.[facility] HospitalIn the event this information is protected by the Federal Confidentiality of Alcohol and Drug Abuse Patient Records regulations: The Federal rules restrict any use of the information to criminally investigate or prosecute any alcohol or drug abuse patient.[facility] HospitalIn the event this information is protected by the Federal Confidentiality of Alcohol and Drug Abuse Patient Records regulations: The Federal rules restrict any use of the information to criminally investigate or prosecute any alcohol or drug abuse patient.[facility] HospitalIn the event this information is protected by the Federal Confidentiality of Alcohol and Drug Abuse Patient Records regulations: The Federal rules restrict any use of the information to criminally investigate or prosecute any alcohol or drug abuse patient.[facility] HospitalIn the event this information is protected by the Federal Confidentiality of Alcohol and Drug Abuse Patient Records regulations: The Federal rules restrict any use of the information to criminally investigate or prosecute any alcohol or drug abuse patient.[facility] HospitalIn the event this information is protected by the Federal Confidentiality of Alcohol and Drug Abuse Patient Records regulations: The Federal rules restrict any use of the information to criminally investigate or prosecute any alcohol or drug abuse patient.[facility] HospitalIn the event this information is protected by the Federal Confidentiality of Alcohol and Drug Abuse Patient Records regulations: The Federal rules restrict any use of the information to criminally investigate or prosecute any alcohol or drug abuse patient.[facility] HospitalIn the event this information is protected by the Federal Confidentiality of Alcohol and Drug Abuse Patient Records regulations: The Federal rules restrict any use of the information to criminally investigate or prosecute any alcohol or drug abuse patient.[facility] HospitalIn the event this information is protected by the Federal Confidentiality of Alcohol and Drug Abuse Patient Records regulations: The Federal rules restrict any use of the information to criminally investigate or prosecute any alcohol or drug abuse patient.[facility] HospitalIn the event this information is protected by the Federal Confidentiality of Alcohol and Drug Abuse Patient Records regulations: The Federal rules restrict any use of the information to criminally investigate or prosecute any alcohol or drug abuse patient.[facility] HospitalIn the event this information is protected by the Federal Confidentiality of Alcohol and Drug Abuse Patient Records regulations: The Federal rules restrict any use of the information to criminally investigate or prosecute any alcohol or drug abuse patient.[facility] HospitalIn the event this information is protected by the Federal Confidentiality of Alcohol and Drug Abuse Patient Records regulations: The Federal rules restrict any use of the information to criminally investigate or prosecute any alcohol or drug abuse patient.[facility] HospitalIn the event this information is protected by the Federal Confidentiality of Alcohol and Drug Abuse Patient Records regulations: The Federal rules restrict any use of the information to criminally investigate or prosecute any alcohol or drug abuse patient.[facility] HospitalIn the event this information is protected by the Federal Confidentiality of Alcohol and Drug Abuse Patient Records regulations: The Federal rules restrict any use of the information to criminally investigate or prosecute any alcohol or drug abuse patient.[facility] HospitalIn the event this information is protected by the Federal Confidentiality of Alcohol and Drug Abuse Patient Records regulations: The Federal rules restrict any use of the information to criminally investigate or prosecute any alcohol or drug abuse patient.[facility] HospitalIn the event this information is protected by the Federal Confidentiality of Alcohol and Drug Abuse Patient Records regulations: The Federal rules restrict any use of the information to criminally investigate or prosecute any alcohol or drug abuse patient.[facility] HospitalIn the event this information is protected by the Federal Confidentiality of Alcohol and Drug Abuse Patient Records regulations: The Federal rules restrict any use of the information to criminally investigate or prosecute any alcohol or drug abuse patient.[facility] HospitalIn the event this information is protected by the Federal Confidentiality of Alcohol and Drug Abuse Patient Records regulations: The Federal rules restrict any use of the information to criminally investigate or prosecute any alcohol or drug abuse patient.[facility] HospitalIn the event this information is protected by the Federal Confidentiality of Alcohol and Drug Abuse Patient Records regulations: The Federal rules restrict any use of the information to criminally investigate or prosecute any alcohol or drug abuse patient.[facility] HospitalIn the event this information is protected by the Federal Confidentiality of Alcohol and Drug Abuse Patient Records regulations: The Federal rules restrict any use of the information to criminally investigate or prosecute any alcohol or drug abuse patient.[facility] HospitalIn the event this information is protected by the Federal Confidentiality of Alcohol and Drug Abuse Patient Records regulations: The Federal rules restrict any use of the information to criminally investigate or prosecute any alcohol or drug abuse patient.[facility] HospitalIn the event this information is protected by the Federal Confidentiality of Alcohol and Drug Abuse Patient Records regulations: The Federal rules restrict any use of the information to criminally investigate or prosecute any alcohol or drug abuse patient.[facility] HospitalIn the event this information is protected by the Federal Confidentiality of Alcohol and Drug Abuse Patient Records regulations: The Federal rules restrict any use of the information to criminally investigate or prosecute any alcohol or drug abuse patient.[facility] HospitalIn the event this information is protected by the Federal Confidentiality of Alcohol and Drug Abuse Patient Records regulations: The Federal rules restrict any use of the information to criminally investigate or prosecute any alcohol or drug abuse patient.[facility] HospitalIn the event this information is protected by the Federal Confidentiality of Alcohol and Drug Abuse Patient Records regulations: The Federal rules restrict any use of the information to criminally investigate or prosecute any alcohol or drug abuse patient.[facility] HospitalIn the event this information is protected by the Federal Confidentiality of Alcohol and Drug Abuse Patient Records regulations: The Federal rules restrict any use of the information to criminally investigate or prosecute any alcohol or drug abuse patient.[facility] HospitalIn the event this information is protected by the Federal Confidentiality of Alcohol and Drug Abuse Patient Records regulations: The Federal rules restrict any use of the information to criminally investigate or prosecute any alcohol or drug abuse patient.[facility] HospitalIn the event this information is protected by the Federal Confidentiality of Alcohol and Drug Abuse Patient Records regulations: The Federal rules restrict any use of the information to criminally investigate or prosecute any alcohol or drug abuse patient.[facility] HospitalIn the event this information is protected by the Federal Confidentiality of Alcohol and Drug Abuse Patient Records regulations: The Federal rules restrict any use of the information to criminally investigate or prosecute any alcohol or drug abuse patient.[facility] HospitalIn the event this information is protected by the Federal Confidentiality of Alcohol and Drug Abuse Patient Records regulations: The Federal rules restrict any use of the information to criminally investigate or prosecute any alcohol or drug abuse patient.[facility] HospitalIn the event this information is protected by the Federal Confidentiality of Alcohol and Drug Abuse Patient Records regulations: The Federal rules restrict any use of the information to criminally investigate or prosecute any alcohol or drug abuse patient.[facility] HospitalIn the event this information is protected by the Federal Confidentiality of Alcohol and Drug Abuse Patient Records regulations: The Federal rules restrict any use of the information to criminally investigate or prosecute any alcohol or drug abuse patient.[facility] HospitalIn the event this information is protected by the Federal Confidentiality of Alcohol and Drug Abuse Patient Records regulations: The Federal rules restrict any use of the information to criminally investigate or prosecute any alcohol or drug abuse patient.[facility] HospitalIn the event this information is protected by the Federal Confidentiality of Alcohol and Drug Abuse Patient Records regulations: The Federal rules restrict any use of the information to criminally investigate or prosecute any alcohol or drug abuse patient.[facility] HospitalIn the event this information is protected by the Federal Confidentiality of Alcohol and Drug Abuse Patient Records regulations: The Federal rules restrict any use of the information to criminally investigate or prosecute any alcohol or drug abuse patient.[facility] HospitalIn the event this information is protected by the Federal Confidentiality of Alcohol and Drug Abuse Patient Records regulations: The Federal rules restrict any use of the information to criminally investigate or prosecute any alcohol or drug abuse patient.[facility] HospitalIn the event this information is protected by the Federal Confidentiality of Alcohol and Drug Abuse Patient Records regulations: The Federal rules restrict any use of the information to criminally investigate or prosecute any alcohol or drug abuse patient.[facility] HospitalIn the event this information is protected by the Federal Confidentiality of Alcohol and Drug Abuse Patient Records regulations: The Federal rules restrict any use of the information to criminally investigate or prosecute any alcohol or drug abuse patient.[facility] HospitalIn the event this information is protected by the Federal Confidentiality of Alcohol and Drug Abuse Patient Records regulations: The Federal rules restrict any use of the information to criminally investigate or prosecute any alcohol or drug abuse patient.[facility] HospitalIn the event this information is protected by the Federal Confidentiality of Alcohol and Drug Abuse Patient Records regulations: The Federal rules restrict any use of the information to criminally investigate or prosecute any alcohol or drug abuse patient.[facility] HospitalIn the event this information is protected by the Federal Confidentiality of Alcohol and Drug Abuse Patient Records regulations: The Federal rules restrict any use of the information to criminally investigate or prosecute any alcohol or drug abuse patient.[facility] HospitalIn the event this information is protected by the Federal Confidentiality of Alcohol and Drug Abuse Patient Records regulations: The Federal rules restrict any use of the information to criminally investigate or prosecute any alcohol or drug abuse patient.[facility] HospitalIn the event this information is protected by the Federal Confidentiality of Alcohol and Drug Abuse Patient Records regulations: The Federal rules restrict any use of the information to criminally investigate or prosecute any alcohol or drug abuse patient.[facility] HospitalIn the event this information is protected by the Federal Confidentiality of Alcohol and Drug Abuse Patient Records regulations: The Federal rules restrict any use of the information to criminally investigate or prosecute any alcohol or drug abuse patient.[facility] HospitalIn the event this information is protected by the Federal Confidentiality of Alcohol and Drug Abuse Patient Records regulations: The Federal rules restrict any use of the information to criminally investigate or prosecute any alcohol or drug abuse patient.[facility] HospitalIn the event this information is protected by the Federal Confidentiality of Alcohol and Drug Abuse Patient Records regulations: The Federal rules restrict any use of the information to criminally investigate or prosecute any alcohol or drug abuse patient.[facility] HospitalIn the event this information is protected by the Federal Confidentiality of Alcohol and Drug Abuse Patient Records regulations: The Federal rules restrict any use of the information to criminally investigate or prosecute any alcohol or drug abuse patient.[facility] HospitalIn the event this information is protected by the Federal Confidentiality of Alcohol and Drug Abuse Patient Records regulations: The Federal rules restrict any use of the information to criminally investigate or prosecute any alcohol or drug abuse patient.[facility] HospitalIn the event this information is protected by the Federal Confidentiality of Alcohol and Drug Abuse Patient Records regulations: The Federal rules restrict any use of the information to criminally investigate or prosecute any alcohol or drug abuse patient.[facility] HospitalIn the event this information is protected by the Federal Confidentiality of Alcohol and Drug Abuse Patient Records regulations: The Federal rules restrict any use of the information to criminally investigate or prosecute any alcohol or drug abuse patient.[facility] HospitalIn the event this information is protected by the Federal Confidentiality of Alcohol and Drug Abuse Patient Records regulations: The Federal rules restrict any use of the information to criminally investigate or prosecute any alcohol or drug abuse patient.[facility] HospitalIn the event this information is protected by the Federal Confidentiality of Alcohol and Drug Abuse Patient Records regulations: The Federal rules restrict any use of the information to criminally investigate or prosecute any alcohol or drug abuse patient.[facility] HospitalIn the event this information is protected by the Federal Confidentiality of Alcohol and Drug Abuse Patient Records regulations: The Federal rules restrict any use of the information to criminally investigate or prosecute any alcohol or drug abuse patient.[facility] HospitalIn the event this information is protected by the Federal Confidentiality of Alcohol and Drug Abuse Patient Records regulations: The Federal rules restrict any use of the information to criminally investigate or prosecute any alcohol or drug abuse patient.[facility] HospitalIn the event this information is protected by the Federal Confidentiality of Alcohol and Drug Abuse Patient Records regulations: The Federal rules restrict any use of the information to criminally investigate or prosecute any alcohol or drug abuse patient.[facility] HospitalIn the event this information is protected by the Federal Confidentiality of Alcohol and Drug Abuse Patient Records regulations: The Federal rules restrict any use of the information to criminally investigate or prosecute any alcohol or drug abuse patient.[facility] HospitalIn the event this information is protected by the Federal Confidentiality of Alcohol and Drug Abuse Patient Records regulations: The Federal rules restrict any use of the information to criminally investigate or prosecute any alcohol or drug abuse patient.[facility] HospitalIn the event this information is protected by the Federal Confidentiality of Alcohol and Drug Abuse Patient Records regulations: The Federal rules restrict any use of the information to criminally investigate or prosecute any alcohol or drug abuse patient.[facility] HospitalIn the event this information is protected by the Federal Confidentiality of Alcohol and Drug Abuse Patient Records regulations: The Federal rules restrict any use of the information to criminally investigate or prosecute any alcohol or drug abuse patient.[facility] HospitalIn the event this information is protected by the Federal Confidentiality of Alcohol and Drug Abuse Patient Records regulations: The Federal rules restrict any use of the information to criminally investigate or prosecute any alcohol or drug abuse patient.[facility] HospitalIn the event this information is protected by the Federal Confidentiality of Alcohol and Drug Abuse Patient Records regulations: The Federal rules restrict any use of the information to criminally investigate or prosecute any alcohol or drug abuse patient.[facility] HospitalIn the event this information is protected by the Federal Confidentiality of Alcohol and Drug Abuse Patient Records regulations: The Federal rules restrict any use of the information to criminally investigate or prosecute any alcohol or drug abuse patient.[facility] HospitalIn the event this information is protected by the Federal Confidentiality of Alcohol and Drug Abuse Patient Records regulations: The Federal rules restrict any use of the information to criminally investigate or prosecute any alcohol or drug abuse patient.[facility] HospitalIn the event this information is protected by the Federal Confidentiality of Alcohol and Drug Abuse Patient Records regulations: The Federal rules restrict any use of the information to criminally investigate or prosecute any alcohol or drug abuse patient.[facility] HospitalIn the event this information is protected by the Federal Confidentiality of Alcohol and Drug Abuse Patient Records regulations: The Federal rules restrict any use of the information to criminally investigate or prosecute any alcohol or drug abuse patient.[facility] HospitalIn the event this information is protected by the Federal Confidentiality of Alcohol and Drug Abuse Patient Records regulations: The Federal rules restrict any use of the information to criminally investigate or prosecute any alcohol or drug abuse patient.[facility] HospitalIn the event this information is protected by the Federal Confidentiality of Alcohol and Drug Abuse Patient Records regulations: The Federal rules restrict any use of the information to criminally investigate or prosecute any alcohol or drug abuse patient.[facility] HospitalIn the event this information is protected by the Federal Confidentiality of Alcohol and Drug Abuse Patient Records regulations: The Federal rules restrict any use of the information to criminally investigate or prosecute any alcohol or drug abuse patient.[facility] HospitalIn the event this information is protected by the Federal Confidentiality of Alcohol and Drug Abuse Patient Records regulations: The Federal rules restrict any use of the information to criminally investigate or prosecute any alcohol or drug abuse patient.[facility] HospitalIn the event this information is protected by the Federal Confidentiality of Alcohol and Drug Abuse Patient Records regulations: The Federal rules restrict any use of the information to criminally investigate or prosecute any alcohol or drug abuse patient.[facility] HospitalIn the event this information is protected by the Federal Confidentiality of Alcohol and Drug Abuse Patient Records regulations: The Federal rules restrict any use of the information to criminally investigate or prosecute any alcohol or drug abuse patient.[facility] HospitalIn the event this information is protected by the Federal Confidentiality of Alcohol and Drug Abuse Patient Records regulations: The Federal rules restrict any use of the information to criminally investigate or prosecute any alcohol or drug abuse patient.[facility] HospitalIn the event this information is protected by the Federal Confidentiality of Alcohol and Drug Abuse Patient Records regulations: The Federal rules restrict any use of the information to criminally investigate or prosecute any alcohol or drug abuse patient.[facility] HospitalIn the event this information is protected by the Federal Confidentiality of Alcohol and Drug Abuse Patient Records regulations: The Federal rules restrict any use of the information to criminally investigate or prosecute any alcohol or drug abuse patient.[facility] HospitalIn the event this information is protected by the Federal Confidentiality of Alcohol and Drug Abuse Patient Records regulations: The Federal rules restrict any use of the information to criminally investigate or prosecute any alcohol or drug abuse patient.[facility] HospitalIn the event this information is protected by the Federal Confidentiality of Alcohol and Drug Abuse Patient Records regulations: The Federal rules restrict any use of the information to criminally investigate or prosecute any alcohol or drug abuse patient.[facility] HospitalIn the event this information is protected by the Federal Confidentiality of Alcohol and Drug Abuse Patient Records regulations: The Federal rules restrict any use of the information to criminally investigate or prosecute any alcohol or drug abuse patient.[facility] HospitalIn the event this information is protected by the Federal Confidentiality of Alcohol and Drug Abuse Patient Records regulations: The Federal rules restrict any use of the information to criminally investigate or prosecute any alcohol or drug abuse patient.[facility] HospitalIn the event this information is protected by the Federal Confidentiality of Alcohol and Drug Abuse Patient Records regulations: The Federal rules restrict any use of the information to criminally investigate or prosecute any alcohol or drug abuse patient.[facility] HospitalIn the event this information is protected by the Federal Confidentiality of Alcohol and Drug Abuse Patient Records regulations: The Federal rules restrict any use of the information to criminally investigate or prosecute any alcohol or drug abuse patient.[facility] HospitalIn the event this information is protected by the Federal Confidentiality of Alcohol and Drug Abuse Patient Records regulations: The Federal rules restrict any use of the information to criminally investigate or prosecute any alcohol or drug abuse patient.[facility] HospitalIn the event this information is protected by the Federal Confidentiality of Alcohol and Drug Abuse Patient Records regulations: The Federal rules restrict any use of the information to criminally investigate or prosecute any alcohol or drug abuse patient.[facility] HospitalIn the event this information is protected by the Federal Confidentiality of Alcohol and Drug Abuse Patient Records regulations: The Federal rules restrict any use of the information to criminally investigate or prosecute any alcohol or drug abuse patient.[facility] HospitalIn the event this information is protected by the Federal Confidentiality of Alcohol and Drug Abuse Patient Records regulations: The Federal rules restrict any use of the information to criminally investigate or prosecute any alcohol or drug abuse patient.[facility] HospitalIn the event this information is protected by the Federal Confidentiality of Alcohol and Drug Abuse Patient Records regulations: The Federal rules restrict any use of the information to criminally investigate or prosecute any alcohol or drug abuse patient.[facility] HospitalIn the event this information is protected by the Federal Confidentiality of Alcohol and Drug Abuse Patient Records regulations: The Federal rules restrict any use of the information to criminally investigate or prosecute any alcohol or drug abuse patient.[facility] HospitalIn the event this information is protected by the Federal Confidentiality of Alcohol and Drug Abuse Patient Records regulations: The Federal rules restrict any use of the information to criminally investigate or prosecute any alcohol or drug abuse patient.[facility] HospitalIn the event this information is protected by the Federal Confidentiality of Alcohol and Drug Abuse Patient Records regulations: The Federal rules restrict any use of the information to criminally investigate or prosecute any alcohol or drug abuse patient.[facility] HospitalIn the event this information is protected by the Federal Confidentiality of Alcohol and Drug Abuse Patient Records regulations: The Federal rules restrict any use of the information to criminally investigate or prosecute any alcohol or drug abuse patient.[facility] HospitalIn the event this information is protected by the Federal Confidentiality of Alcohol and Drug Abuse Patient Records regulations: The Federal rules restrict any use of the information to criminally investigate or prosecute any alcohol or drug abuse patient.[facility] HospitalIn the event this information is protected by the Federal Confidentiality of Alcohol and Drug Abuse Patient Records regulations: The Federal rules restrict any use of the information to criminally investigate or prosecute any alcohol or drug abuse patient.[facility] HospitalIn the event this information is protected by the Federal Confidentiality of Alcohol and Drug Abuse Patient Records regulations: The Federal rules restrict any use of the information to criminally investigate or prosecute any alcohol or drug abuse patient.[facility] HospitalIn the event this information is protected by the Federal Confidentiality of Alcohol and Drug Abuse Patient Records regulations: The Federal rules restrict any use of the information to criminally investigate or prosecute any alcohol or drug abuse patient.[facility] HospitalIn the event this information is protected by the Federal Confidentiality of Alcohol and Drug Abuse Patient Records regulations: The Federal rules restrict any use of the information to criminally investigate or prosecute any alcohol or drug abuse patient.[facility] HospitalIn the event this information is protected by the Federal Confidentiality of Alcohol and Drug Abuse Patient Records regulations: The Federal rules restrict any use of the information to criminally investigate or prosecute any alcohol or drug abuse patient.[facility] Care Teams (unrecognized sec tion and content) Team Status: Inactive Member Role Status Dates Ender RICKS MD Attending Provider Active Team Status: Active Member Role Status Dates Ender RICKS MD Attending Provider Active Team Status: Inactive Member Role Status Dates Ender RICKS MD Attending Provider, Referring Stuart rubi Active 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 Start Date End Date Moreno Oates MD [address] [place], [place] [id number] PCP - General Family Practice 02/13/16 Lamonte Weber [address] [place] [address] 11/17/06 Moreno Oates MD [address] [place] [address] [address] [place], [place] 520141 Home Care Physician Family Practice 11/29/19 Moreno Oates MD [address] [place] [address] [address] [place], [place] 661231 Referring Family Practice 11/29/19 Sanjana Tarango MD [address] [facility] [place] [address] Consulting Infectious Diseases 11/29/19 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 Start Date End Date Moreno Oates MD [address] [place], [place] [id number] PCP - General Family Practice 02/13/16 Lamonte Weber [address] [place] [address] 11/17/06 Moreno Oates MD [address] [place] [address] [address] [place], [place] 575741 Home Care Physician Family Practice 11/29/19 Moreno Oates MD [address] [place] [address] [address] [place], [place] 611041 Referring Family Practice 11/29/19 Sanjana Tarango MD [address] [place] [address] Consulting Infectious Diseases 11/29/19 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 Start Date End Date Moreno Oates MD [address] [place], [place] 954221 PCP - General Family Practice 02/13/16 [place] [address] 11/17/06 Moreno Oates MD [address] [place] [address] [address] [place], [place] 646451 Home Care Physician Family Practice 11/29/19 Moreno Oates MD [address] [place] [address] [address] [place], [place] 160791 Referring Family Practice 11/29/19 Sanjana Tarango MD [address] [place] [address] Consulting Infectious Diseases 11/29/19 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 Start Date End Date Moreno Oates MD [address] [place] [address] PCP - General Family Practice 02/13/16 Lamonte Weber [address] [place] [address] 11/17/06 Moreno Oates MD [address] [place] [address] [place] [address] Home Care Physician Family Practice 11/29/19 Moreno Oates MD [address] [place] [address] [address] [place], [place] [id number] Referring Family Practice 11/29/19 Sanjana Tarango MD [address] [place] [address] Consulting Infectious Diseases 11/29/19 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 Start Date End Date Moreno Oates MD [address] [place], [place] 523931 PCP - General Family Practice 02/13/16 Lamonte Weber [address] [place] [address] 11/17/06 Moreno Oates MD [address] [place] [address] [address] [place], [place] 970311 Home Care Physician Family Practice 11/29/19 Moreno Oates MD [address] [place] [address] [address] [place], [place] 385921 Referring Family Practice 11/29/19 Sanjana Tarango MD [address] [place] [address] Consulting Infectious Diseases 11/29/19 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 Start Date End Date Moreno Oates MD [address] [place] [address] PCP - General Family Practice 02/13/16 Lamonte Weber [address] [place] [address] 11/17/06 Moreno Oates MD [address] [place] [address] Home Care Physician Family Practice 11/29/19 Moreno Oates MD [address] [place] [address] [address] [place], [place] 641321 Referring Family Practice 11/29/19 Sanjana Tarango MD [address] [place] [address] Consulting Infectious Diseases 11/29/19 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 Start Date End Date Moreno Oates MD [address] [place], [place] 108191 PCP - General Family Practice 02/13/16 Lamonte Weber [address] [place] [address] 11/17/06 Moreno Oates MD [address] [place] [address] [address] [place], [place] 883811 Home Care Physician Family Practice 11/29/19 Moreno Oates MD [address] [facility] [address] [place], [place] 354011 Referring Family Practice 11/29/19 Sanjana Tarango MD [address] [place] [address] Consulting Infectious Diseases 11/29/19 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 Start Date End Date Moreno Oates MD [address] [place], [place] [id number] PCP - General Family Practice 02/13/16 Lamonte Weber [address] [place] [address] 11/17/06 Moreno Oates MD [address] [place] [address] Home Care Physician Family Practice 11/29/19 Moreno Oates MD [address] [place] [address] [address] [place], [place] 850781 Referring Family Practice 11/29/19 Sanjana Tarango MD [address] [place] [address] Consulting Infectious Diseases 11/29/19 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 Start Date End Date Moreno Oates MD [address] [place], [place] 163141 PCP - General Family Practice 02/13/16 Lamonte Weber [address] [place] [address] 11/17/06 Moreno Oates MD [address] [facility] [place] [address] Home Care Physician Family Practice 11/29/19 Moreno Oates MD [address] [place] [address] [address] [place], [place] 597321 Referring Family Practice 11/29/19 Sanjana Tarango MD [address] [facility] [address] [place] [address] Consulting Infectious Diseases 11/29/19 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 Start Date End Date Moreno Oates MD [address] [place] [address] PCP - General Family Practice 02/13/16 Lamonte Weber [address] [place] [address] 11/17/06 Moreno Oates MD [address] [place] [address] Home Care Physician Family Practice 11/29/19 Moreno Oates MD [address] [facility] [address] [place], [place] [id number] Referring Family Practice 11/29/19 Sanjana Tarango MD [address] [facility] [address] [place] [address] Consulting Infectious Diseases 11/29/19 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 Start Date End Date Moreno Oates MD [address] [place], [place] 986601 PCP - General Family Practice 02/13/16 Lamonte Weber [address] [place] [address] 11/17/06 Moreno Oates MD [address] [place] [address] [place] [address] Home Care Provider Family Practice 11/29/19 Moreno Oates MD [address] [place] [address] [address] [place], [place] 320731 Referring Family Practice 11/29/19 Sanjana Tarango MD [address] [facility] [address] [place] [address] Consulting Infectious Diseases 11/29/19 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 Start Date End Date Moreno Oates MD [address] [place] [address] PCP - General Family Practice 02/13/16 Lamonte Weber [address] [place] [address] 11/17/06 Moreno Oates MD [address] [place] [address] Home Care Provider Family Practice 11/29/19 Moreno Oates MD [address] [facility] [address] [place], [place] 690781 Referring Family Practice 11/29/19 Sanjana Tarango MD [address] [facility] [address] [address] Consulting Infectious Diseases 11/29/19 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 Start Date End Date Moreno Oates MD [address] [place] [address] PCP - General Family Medicine 02/13/16 Lamonte Weber [address] [place], [place] 6446[address] 11/17/06 Moreno Oates MD [address] [place] [address] [place] [address] Home Care Provider Family Medicine 11/29/19 Moreno Oates MD [address] [place] [address] [place] [address] Referring Family Medicine 11/29/19 Sanjana Tarango MD [address] [facility] [address] [address] Consulting Infectious Diseases 11/29/19 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 Start Date End Date Moreno Oates MD [address] [place] [address] PCP - General Family Medicine 02/13/16 Lamonte Weber [address] [place] [address] 11/17/06 Moreno Oates MD [address] [place] [address] [place] [address] Home Care Provider Family Medicine 11/29/19 Moreno Oates MD [address] [place] [address] [address] [place], [place] 536151 Referring Family Medicine 11/29/19 Sanjana Tarango MD [address] [facility] [address] [address] Consulting Infectious Diseases 11/29/19 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 Start Date End Date Moreno Oates MD [address] [place], [place] 740881 PCP - General Family Medicine 02/13/16 Lamonte Weber [address] [place], [place] [id number] 11/17/06 Moreno Oates MD [address] [place] [address] [address] [place], [place] 742101 Home Care Provider Family Medicine 11/29/19 Moreno Oates MD [address] [place] [address] [address] [place], [place] 650751 Referring Family Medicine 11/29/19 Sanjana Tarango MD [address] [facility] [address] [place] [address] Consulting Infectious Diseases 11/29/19 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 Start Date End Date Moreno Oates MD [address] [place] [address] PCP - General Family Medicine 02/13/16 Lamonte Weber [address] [place] [address] 11/17/06 Moreno Oates MD [address] [place] [address] [place] [address] Home Care Provider Family Medicine 11/29/19 Moreno Oates MD [address] [place] [address] [address] [place], [place] [id number] Referring Family Medicine 11/29/19 Sanjana Tarango MD [address] [facility] [address] [address] Consulting Infectious Diseases 11/29/19 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 Start Date End Date Moreno Oates MD [address] [place], [place] 302951 PCP - General Family Medicine 02/13/16 Lamonte Weber [address] [place], [place] 38629270 11/17/06 Moreno Oates MD [address] [place] [address] [place] [address] Home Care Provider Family Medicine 11/29/19 Moreno Oates MD [address] [place] [address] [place] [address] Referring Family Medicine 11/29/19 Sanjana Tarango MD [address] [facility] [address] [address] Consulting Infectious Diseases 11/29/19 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 Start Date End Date Moreno Oates MD [address] [place] [address] PCP - General Family Medicine 02/13/16 Lamonte Weber [address] [place] [address] 11/17/06 Moreno Oates MD [address] [place] [address] [place] [address] Home Care Provider Family Medicine 11/29/19 Moreno Oates MD [address] [place] [address] [address] [place], [place] 80655281 Referring Family Medicine 11/29/19 Sanjana Tarango MD [address] [facility] [address] [place] [address] Consulting Infectious Diseases 11/29/19 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 Start Date End Date Moreno Oates MD [address] [place], [place] 227911 PCP - General Family Medicine 02/13/16 Lamonte Weber [address] [place], [place] 43742270 11/17/06 Moreno Oates MD [address] [place] [address] [place] [address] Home Care Provider Family Medicine 11/29/19 Moreno Oates MD [address] [place] [address] [place] [address] Referring Family Medicine 11/29/19 Sanjana Tarango MD [address] [facility] [address] [place] [address] Consulting Infectious Diseases 11/29/19 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 Start Date End Date Moreno Oates MD [address] [place], [place] 652861 PCP - General Family Medicine 02/13/16 Lamonte Weber [address] [place] [address] 11/17/06 Moreno Oates MD [address] [place] [address] [place] [address] Home Care Provider Family Medicine 11/29/19 Moreno Oates MD [address] [place] [address] [address] [place], [place] 13923281 Referring Family Medicine 11/29/19 Sanjana Tarango MD [address] [facility] [address] [address] Consulting Infectious Diseases 11/29/19 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 Start Date End Date Moreno Oates MD [address] [place], [place] 464791 PCP - General Family Medicine 02/13/16 Lamonte Weber [address] [place], [place] [id number] 11/17/06 Moreno Oates MD [address] [place] [address] [address] [place], [place] 329421 Home Care Provider Family Medicine 11/29/19 Moreno Oates MD [address] [place] [address] [address] [place], [place] 385111 Referring Family Medicine 11/29/19 Sanjana Tarango MD [address] [facility] [address] [address] Consulting Infectious Diseases 11/29/19 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 Start Date End Date Moreno Oates MD [address] [place], [place] 305781 PCP - General Family Medicine 02/13/16 Lamonte Weber [address] [place] [address] 11/17/06 Moreno Oates MD [address] [place] [address] [place] [address] Home Care Provider Family Medicine 11/29/19 Moreno Oates MD [address] [place] [address] [address] [place], [place] [id number] Referring Family Medicine 11/29/19 Sanjana Tarango MD [address] [address] Consulting Infectious Diseases 11/29/19 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 Start Date End Date Moreno Oates MD [address] [place], [place] 600261 PCP - General Family Medicine 02/13/16 Lamonte Weber [address] [place], [place] 39[address] 11/17/06 Moreno Oates MD [address] [place] [address] [address] [place], [place] 358251 Home Care Provider Family Medicine 11/29/19 Moreno Oates MD [address] [place] [address] [address] [place], [place] 157761 Referring Family Medicine 11/29/19 Sanjana Tarango MD [address] [facility] [address] [address] Consulting Infectious Diseases 11/29/19 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 Start Date End Date Moreno Oates MD [address] [place], [place] 073121 PCP - General Family Medicine 02/13/16 Lamonte Weber [address] [place] [address] 11/17/06 Moreno Oates MD [address] [place] [address] [place] [address] Home Care Provider Family Medicine 11/29/19 Moreno Oates MD [address] [place] [address] [place], [place] [id number] Referring Family Medicine 11/29/19 Sanjana Tarango MD 3609 [facility] [address] [address] Consulting Infectious Diseases 11/29/19 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 Start Date End Date Moreno Oates MD [address] [place], [place] 316961 PCP - General Family Medicine 02/13/16 Lamonte Weber [address] [place] [address] 11/17/06 Moreno Oates MD [address] [place] [address] [place] [address] Home Care Provider Family Medicine 11/29/19 Moreno Oates MD [address] [place] [address] [place] [address] Referring Family Medicine 11/29/19 Sanjana Tarango MD [address] [facility] [address] [facility] [address] [place] [address] Consulting Infectious Diseases 11/29/19 Team Status: Inactive Member Role Status Dates Ender Oates MD Attending Provider Active Team Status: Inactive Member Role Status Dates Ender Oates MD Attending Provider, Referring Prov ider Active Team Status: Inactive Member Role Status Dates Chet Angel Attending Provider Active 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 Start Date End Date Moreno Oates MD [address] [place], [place] [id number] PCP - General Family Medicine 02/13/16 Lamonte Weber [address] [place] [address] 11/17/06 Moreno Oates MD [address] [place] [address] [place] [address] Home Care Provider Family Medicine 11/29/19 Moreno Oates MD [address] [place] [address] [address] [place], [place] [id number] Referring Family Medicine 11/29/19 Sanjana Tarango MD 3608 [facility] [address] [address] Consulting Infectious Diseases 11/29/19 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 Start Date End Date Moreno Oates MD [address] [place], [place] 333881 PCP - General Family Medicine 02/13/16 Lamonte Weber [address] [place] [address] 11/17/06 Moreno Oates MD [address] [place] [address] [address] [place], [place] 966891 Home Care Provider Family Medicine 11/29/19 Moreno Oates MD [address] [place] [address] [address] [place], [place] [id number] Referring Family Medicine 11/29/19 Sanjana Tarango MD 3604 [facility] [address] [address] Consulting Infectious Diseases 11/29/19 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 Start Date End Date Moreno Oates MD [address] [place], [place] 070611 PCP - General Family Medicine 02/13/16 Lamonte Weber [address] [place] [address] 11/17/06 Moreno Oates MD [address] [place] [address] [address] [place], [place] [id number] Home Care Provider Family Medicine 11/29/19 Moreno Oates MD [address] [facility] [address] [place], [place] 77023281 Referring Family Medicine 11/29/19 Sanjana Tarango MD [address] [address] Consulting Infectious Diseases 11/29/19 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 Start Date End Date Moreno Oates MD [address] [place], [place] 023551 PCP - General Family Medicine 02/13/16 Lamonte Weber [address] [place] [address] 11/17/06 Moreno Oates MD [address] [facility] [address] [place], [place] 033561 Home Care Provider Family Medicine 11/29/19 Moreno Oates MD [address] [place] [address] [address] [place], [place] [id number] Referring Family Medicine 11/29/19 Sanjana Tarango MD 9765 [facility] [address] [address] Consulting Infectious Diseases 11/29/19 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 Start Date End Date Moreno Oates MD [address] [place], [place] 097781 PCP - General Family Medicine 02/13/16 [place] [address] 11/17/06 Moreno Oates MD [address] [place] [address] [address] [place], [place] [id number] Home Care Provider Family Medicine 11/29/19 Moreno Oates MD [address] [facility] [address] [place], [place] [id number] Referring Family Medicine 11/29/19 Sanjana Tarango MD 6945 [facility] [address] [address] Consulting Infectious Diseases 11/29/19 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 Start Date End Date Moreno Oates MD [address] [place], [place] 599791 PCP - General Family Medicine 02/13/16 Lamonte Weber [address] [place] [address] 11/17/06 Moreno Oates MD [address] [facility] [address] [place], [place] 846541 Home Care Provider Family Medicine 11/29/19 Moreno Oates MD [address] [place] [address] [address] [place], [place] 75193281 Referring Family Medicine 11/29/19 Sanjana Tarango MD 2350 [facility] [address] [address] Consulting Infectious Diseases 11/29/19 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 Start Date End Date Moreno Oates MD [address] [place] [address] PCP - General Family Medicine 02/13/16 Lamonte Weber [address] [place] [address] 11/17/06 Moreno Oates MD [address] [facility] [address] [place], [place] [id number] Home Care Provider Family Medicine 11/29/19 Moreno Oates MD [address] [facility] [place] [address] Referring Family Medicine 11/29/19 Sanjana Tarango MD [address] [facility] [address] [facility] [address] [place] [address] Consulting Infectious Diseases 11/29/19 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 Start Date End Date Moreno Oates [address] [place] [address] PCP - General 02/14/16 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 Start Date End Date Moreno Oates MD [address] [place] [address] PCP - General Family Medicine 02/13/16 Lamonte Weber [address] [place] [address] 11/17/06 Moreno Oates MD [address] [facility] [place] [address] Home Care Provider Family Medicine 11/29/19 Moreno Oates MD [address] [facility] [place] [address] Referring Family Medicine 11/29/19 Sanjana Tarango MD [address] [facility] [address] [facility] [address] [place] [address] Consulting Infectious Diseases 11/29/19 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 Start Date End Date Moreno Oates MD [address] [place] [address] PCP - General Family Medicine 02/13/16 Lamonte Weber [address] [place] [address] 11/17/06 Morneo Oates MD [address] [facility] [place] [address] Home Care Provider Family Medicine 11/29/19 Moreno Oates MD [address] [facility] [place] [address] Referring Family Medicine 11/29/19 Sanjana Tarango MD [address] [facility] [address] [facility] [address] [place], [place] 2386822 Consulting Infectious Diseases 11/29/19 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 Start Date End Date Moreno Oates MD [address] [place] [address] PCP - General Family Medicine 02/13/16 Lamonte Weber [address] [place] [address] 11/17/06 Moreno Oates MD [address] [facility] [address] [place], [place] 624021 Home Care Provider Family Medicine 11/29/19 Moreno Oates MD [address] [facility] [address] [place], [place] 473421 Referring Family Medicine 11/29/19 Sanjana Tarango MD 3601 [facility] [facility] [address] [place] [address] Consulting Infectious Diseases 11/29/19 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 Start Date End Date Moreno Oates MD [address] [place] [address] PCP - General Family Medicine 02/13/16 Lamonte Weber [address] [place] [address] 11/17/06 Moreno Oates MD [address] [facility] [address] [place], [place] 799471 Home Care Provider Family Medicine 11/29/19 Moreno Oates MD [address] [facility] [place] [address] Referring Family Medicine 11/29/19 [place] [address] [place] [address] Consulting Infectious Diseases 11/29/19 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 Start Date End Date Moreno Oates MD [address] [place] [address] PCP - General Family Medicine 02/13/16 Lamonte Weber [address] [facility] [place] [address] 11/17/06 Moreno Oates MD [address] [facility] [address] [place], [place] 275961 Home Care Provider Family Medicine 11/29/19 Moreno Oates MD [address] [facility] [address] [place], [place] 142311 Referring Family Medicine 11/29/19 Sanjana Taranog MD [address] [facility] [address] [facility] [address] [place] [address] Consulting Infectious Diseases 11/29/19 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 Start Date End Date Moreno Oates MD [address] [place] [address] PCP - General Family Medicine 02/13/16 Lamonte Weber [address] [facility], [place] 78508270 11/17/06 Moreno Oates MD [address] [facility] [address] [place], [place] 219591 Home Care Provider Family Medicine 11/29/19 Moreno Oates MD [address] [facility] [place] [address] Referring Family Medicine 11/29/19 Sanjana Tarango MD [address] [facility] [address] [facility] [address] [place] [address] Consulting Infectious Diseases 11/29/19 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 Start Date End Date Moreno Oates MD [address] [place] [address] PCP - General Family Medicine 02/13/16 Lamonte Weber [address] [place], [place] 38110270 11/17/06 Moreno Oates MD [address] [facility] [address] [place], [place] 11896281 Home Care Provider Family Medicine 11/29/19 Moreno Oates MD [address] [facility] [place] [address] Referring Family Medicine 11/29/19 Sanjana Tarango MD [address] [facility] [address] [place] [address] Consulting Infectious Diseases 11/29/19 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 Start Date End Date Moreno Oates MD [address] [place] [address] PCP - General Family Medicine 02/13/16 Lamonte Weber [address] [place] [address] 11/17/06 Moreno Oates MD [address] [facility] [place] [address] Home Care Provider Family Medicine 11/29/19 Moreno Oates MD [address] [facility] [place] [address] Referring Family Medicine 11/29/19 Sanjana Tarango MD [address] [facility] [address] [place] [address] Consulting Infectious Diseases 11/29/19 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 Start Date End Date Moreno Oates MD [address] [place] [address] PCP - General Family Medicine 02/13/16 Lamonte Weber [address] [place] [address] 11/17/06 Moreno Oates MD [address] [facility] [place] [address] Home Care Provider Family Medicine 11/29/19 Moreno Oates MD [address] [facility] [place] [address] Referring Family Medicine 11/29/19 Sanjana Tarango MD [address] [facility] [address] [facility] [address] [place] [address] Consulting Infectious Diseases 11/29/19 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 Start Date End Date Moreno Oates MD [address] [place] [address] 577401 PCP - General Family Medicine 02/13/16 Lamonte Weber [address] [place] [address] 11/17/06 Moreno Oates MD [address] [facility] [address] [place], [place] 43632281 Home Care Provider Family Medicine 11/29/19 Moreno Oates MD [address] [facility] [address] [place], [place] 096691 Referring Family Medicine 11/29/19 Sanjana Tarango MD [address] [facility] [place] [address] Consulting Infectious Diseases 11/29/19 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 Start Date End Date oMreno Oates MD [address] [place] [address] PCP - General Family Medicine 02/13/16 Lamonte Weber [address] [place] [address] 11/17/06 Moreno Oates MD [address] [facility] [place] [address] Home Care Provider Family Medicine 11/29/19 Moreno Oates MD [address] [facility] [place] [address] Referring Family Medicine 11/29/19 [place] [address] [place] [address] Consulting Infectious Diseases 11/29/19 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 Start Date End Date Moreno Oates MD [address] [place] [address] PCP - General Family Medicine 02/13/16 Lamonte Weber [address] [place] [address] 11/17/06 Moreno Oates MD [address] [facility] [address] [place], [place] 073481 Home Care Provider Family Medicine 11/29/19 Moreno Oates MD [address] [facility] [address] [place], [place] 753421 Referring Family Medicine 11/29/19 Sanjana Tarango MD [address] [facility] [address] [place] [address] Consulting Infectious Diseases 11/29/19 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 Start Date End Date Moreno Oates MD [address] [place] [address] PCP - General Family Medicine 02/13/16 Lamonte Weber [address] [place] [address] 11/17/06 Moreno Oates MD [address] [facility] [place] [address] Home Care Provider Family Medicine 11/29/19 Moreno Oates MD [address] [facility] [place] [address] Referring Family Medicine 11/29/19 Sanjana Tarango MD [address] [facility] [address] [facility] [address] [place] [address] Consulting Infectious Diseases 11/29/19 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 Start Date End Date Moreno Oates MD [address] [place] [address] PCP - General Family Medicine 02/13/16 Lamonte Weber [address] [facility], [place] [id number] 11/17/06 Moreno Oates MD [address] [facility] [address] [place], [place] 610251 Home Care Provider Family Medicine 11/29/19 Moreno Oates MD [address] [facility] [address] [place], [place] 056221 Referring Family Medicine 11/29/19 Sanjana Tarango MD [address] [facility] [address] [facility] [address] [place] [address] Consulting Infectious Diseases 11/29/19 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 Start Date End Date Moreno Oates MD [address] [place] [address] PCP - General Family Medicine 02/13/16 Lamonte Weber [address] [place], [place] 38490270 11/17/06 Moreno Oates MD [address] [facility] [place] [address] Home Care Provider Family Medicine 11/29/19 Moreno Oates MD [address] [facility] [place] [address] Referring Family Medicine 11/29/19 Sanjana Tarango MD [address] [facility] [address] [facility] [address] [place] [address] Consulting Infectious Diseases 11/29/19 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 Start Date End Date Moreno Oates MD [address] [place] [address] PCP - General Family Medicine 02/13/16 Lamonte Weber [address] [place], [place] 96316270 11/17/06 Moreno Oates MD [address] [facility] [address] [place], [place] 584631 Home Care Provider Family Medicine 11/29/19 Moreno Oates MD [address] [facility] [place] [address] Referring Family Medicine 11/29/19 Sanjana Tarango MD [address] [facility] [address] [facility] [address] [place] [address] Consulting Infectious Diseases 11/29/19 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 Start Date End Date Moreno Oates MD [address] [place] [address] PCP - General Family Medicine 02/13/16 Lamonte Weber [address] [place] [address] 11/17/06 Moreno Oates MD [address] [facility] [address] [place], [place] 943071 Home Care Provider Family Medicine 11/29/19 Moreno Oates MD [address] [facility] [place] [address] Referring Family Medicine 11/29/19 Sanjana Tarango MD [address] [place] [address] Consulting Infectious Diseases 11/29/19 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 Start Date End Date Moreno Oates MD [address] [place] [address] PCP - General Family Medicine 02/13/16 Lamonte Weber [address] [place] [address] 11/17/06 Moreno Oates MD [address] [facility] [address] [place], [place] 033711 Home Care Provider Family Medicine 11/29/19 Moreno Oates MD [address] [facility] [address] [place], [place] 292381 Referring Family Medicine 11/29/19 Sanjana Tarango MD 3609 [facility] [address] [address] Consulting Infectious Diseases 11/29/19 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 Start Date End Date Moreno Oates MD [address] [place] [address] PCP - General Family Medicine 02/13/16 Lamonte Weber [address] [place] [address] 11/17/06 Moreno Oates MD [address] [facility] [address] [place], [place] 554471 Home Care Provider Family Medicine 11/29/19 Moreno Oates MD [address] [facility] [address] [place], [place] 736211 Referring Family Medicine 11/29/19 Sanjana Tarango MD [address] [facility] [address] [place] [address]78 Consulting Infectious Diseases 11/29/19 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 Start Date End Date Moreno Oates MD [address] [place] [address] PCP - General Family Medicine 02/13/16 Lamonte Weber [address] [place] [address] 11/17/06 Moreno Oates MD [address] [facility] [place] [address] Home Care Provider Family Medicine 11/29/19 Moreno Oates MD [address] [facility] [place] [address] Referring Family Medicine 11/29/19 Sanjana Tarango MD [address] [facility] [address] [facility] [address] [place] [address]81 Consulting Infectious Diseases 11/29/19 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 Start Date End Date Moreno Oates MD [address] [place] [address] PCP - General Family Medicine 02/13/16 Lamonte Weber [address] [place] [address] 11/17/06 Moreno Oates MD [address] [facility] [address] [place], [place] 644181 Home Care Provider Family Medicine 11/29/19 Moreno Oates MD [address] [facility] [place] [address] Referring Family Medicine 11/29/19 Sanjana Tarango MD [address] [facility] [address] [facility] [address] [place] [address] Consulting Infectious Diseases 11/29/19 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 Start Date End Date Moreno Oates MD [address] [place] [address] PCP - General Family Medicine 02/13/16 Lamonte Weber [address] [place] [address] 11/17/06 Moreno Oates MD [address] [facility] [place] [address] Home Care Provider Family Medicine 11/29/19 Moreno Oates MD [address] [facility] [place] [address] Referring Family Medicine 11/29/19 Sanjana Tarango MD [address] [facility] [address] [place] [address] Consulting Infectious Diseases 11/29/19 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 Start Date End Date Moreno Oates MD [address] [place] [address] PCP - General Family Medicine 02/13/16 Lamonte Weber [address] [place] [address] 11/17/06 Moreno Oates MD [address] [facility] [address] [place], [place] 884211 Home Care Provider Family Medicine 11/29/19 Moreno Oates MD [address] [facility] [place] [address] Referring Family Medicine 11/29/19 Sanjana Tarango MD [address] [facility] [address] [place] [address]57 Consulting Infectious Diseases 11/29/19 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 Start Date End Date Moreno Oates MD [address] [place], [place] 953151 PCP - General Family Medicine 02/13/16 Lamonte Weber [address] [place] [address] [phone] 11/17/06 Moreno Oates MD [address] [facility] [place] [address] Home Care Provider Family Medicine 11/29/19 Moreno Oates MD [address] [place] [address] Referring Family Medicine 11/29/19 Sanjana Tarango MD [address] [facility] [address] [place] [address]602 Consulting Infectious Diseases 11/29/19 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 Start Date End Date Moreno Oates MD [address] [place] [address] PCP - General Family Medicine 02/13/16 Lamonte Weber [address] [facility] [place] [address] 11/17/06 Moreno Oates MD [address] [facility] [address] [place], [place] 806911 Home Care Provider Family Medicine 11/29/19 Moreno Oates MD [address] [place] [address] Referring Family Medicine 11/29/19 Sanjana Tarango MD 3600 [facility] [address] [id number] Consulting Infectious Diseases 11/29/19 Carlos Mei, BRICK CATCHER.DOCK HAND [address] [facility] [address] [place], [place] 387991 Master Craftsman Internal Medicine 05/08/24 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 Start Date End Date Moreno Oates MD [address] [place], [place] 523471 PCP - General Family Medicine 02/13/16 Lamonte Weber [address] [facility] [place] [address] 11/17/06 Moreno Oates MD [address] [place] [address] Home Care Provider Family Medicine 11/29/19 Moreno Oates MD [address] [facility] [place] [address] Referring Family Medicine 11/29/19 Sanjana Tarango MD [address] [facility] [address] [facility] [address] [place] [address] 48983 Consulting Infectious Diseases 11/29/19 Carlos Mei APRN.DOCK HAND [address] [facility] [address] [place], [place] 097401 Master Craftsman Internal Medicine 05/08/24 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 Start Date End Date Moreno Oates MD [facility] [place], [place] 192451 PCP - General Family Medicine 02/13/16 Lamonte Weber [address] [place] [address] [id number] 11/17/06 Moreno Oates MD [address] [facility] [address] [place], [place] 118171 Home Care Provider Family Medicine 11/29/19 Moreno Oates MD [address] [facility] [address] [place], [place] 054861 Referring Family Medicine 11/29/19 Sanjana Tarango MD [address] [facility] [address] [place] [address] 21402 Consulting Infectious Diseases 11/29/19 Carlos Mei APRN.DOCK HAND [address] [facility] [address] [place], [place] [id number] Master Craftsman Internal Medicine 05/08/24 Team Status: Inactive Member [...] August 10, 2024 End: August 10, 2024 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 Start Date End Date Moreno Oates MD [address] [place], [place] 658581 PCP - General Family Medicine 02/13/16 Lamonte Weber [address] [place] [address] [phone] 11/17/06 Moreno Oates MD [address] [facility] [address] [place] 40631281 Home Care Provider Family Medicine 11/29/19 Moreno Oates MD [address] [facility] [address] [place], [place] 47649281 Referring Family Medicine 11/29/19 Sanjana Tarango MD [address] [facility] [address] [place], [place] 3260422 Consulting Infectious Diseases 11/29/19 Carlos Mei APRN.DOCK HAND [address] [facility] [address] [place] [id number] Master Craftsman Internal Medicine 05/08/24 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 Start Date End Date Moreno Oates MD [address] [place], [place] 50355691 PCP - General Family Medicine 02/13/16 Lamonte Weber [address] [place] [address] 11/17/06 Moreno Oates MD [address] [facility] [address] [place], [place] 752971 Home Care Provider Family Medicine 11/29/19 Moreno Oates MD [address] [facility] [address] [place], [place] 164061 Referring Family Medicine 11/29/19 Sanjana Tarango MD [address] [facility] R[address]ri [place], [place] 0755822 Consulting Infectious Diseases 11/29/19 Carlos Mei APRN.DOCK HAND [address] [facility] [address] [place], [place] 250271 Master Craftsman Internal Medicine 05/08/24 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 Start Date End Date Moreno Oates MD [address] [place], [place] 076931 PCP - General Family Medicine 02/13/16 Lamonte Weber [address] [place] [address] 11/17/06 Moreno Oates MD [address] [facility] [address] [place], [place] 842961 Home Care Provider Family Medicine 11/29/19 Moreno Oates MD [address] [facility] [address] [place], [place] 699641 Referring Family Medicine 11/29/19 Sanjana Tarango MD [address] [facility] [address] [facility] [address] [place] [address] 06781 Consulting Infectious Diseases 11/29/19 Carlos Mei APRN.DOCK HAND [address] [facility] [address] [place], [place] 873861 Master Craftsman Internal Medicine 05/08/24 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 Start Date End Date Moreno Oates MD [address] [place], [place] 427911 PCP - General Family Medicine 02/13/16 Lamonte Weber [address] [place] [address] [phone] 11/17/06 Moreno Oates MD [address] [facility] [place] [address] Home Care Provider Family Medicine 11/29/19 Moreno Oates MD [address] [facility] [place] [address] Referring Family Medicine 11/29/19 Sanjana Tarango MD [address] [facility] [address] [place] [address]18 Consulting Infectious Diseases 11/29/19 Carlos Mei APRN.DOCK HAND [address] [facility] [address] [place], [place] [id number] Master Craftsman Internal Medicine 05/08/24 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 Start Date End Date Moreno Oates MD [address] [place] [address] PCP - General Family Medicine 02/13/16 Lamonte Weber [address] [place] [address] [place] [address] 11/17/06 Moreno Oates MD [address] [facility] [address] [place], [place] 11712281 Home Care Provider Family Medicine 11/29/19 Moreno Oates MD [address] [facility] [address] [place], [place] [id number] Referring Family Medicine 11/29/19 Sanjana Tarango MD [address] [facility] [address] [place] [place], [place] [id number] Consulting Infectious Diseases 11/29/19 Carlos Mei APRN.DOCK HAND [address] [facility] [address] [place], [place] [id number] Master Craftsman Internal Medicine 05/08/24 Goals (unrecognized section and [...] BE BASED ON THE PRIMARY CLINICAL RECORDS. [facility] [employer] [facility]. provides no warranty or guarantee of the accuracy or completeness of information in this document.
[2025-02-09 09:03] LABS: Hematocrit 46.6 % (37-47); Hemoglobin 14.8 g/dL (12.0-15.0); Mean Corp Hgb Conc 31.8 g/dL (32-36); Mean Corpuscular Volume 100.0 fL (81-99); Mean Platelet Vol. 10.6 fl (6.2-12.0); Platelet Count 204 K/mm3 (150-450); RBC Distribution Width CV 14.6 % (11.6-14.6); RBC Distribution Width SD 54.4 fl (35.1-43.9); Red Blood Count 4.66 M/mm3 (4.2-5.4); White Blood Count 8.4 K/mm3 (4.4-11.0)
[2025-02-09 09:21] LABS: AST(SGOT) 22 U/L (<=31); Alanine Aminotransfer ALT/SGPT 15 U/L (<=34); Albumin, Serum 4.0 g/dL (3.4-4.8); Alkaline Phosphatase 97 U/L (35-104); Anion Gap 12 (5-15); BUN 22 mg/dL (4-19); BUN/Creat Ratio 27.0 RATIO (10-20); Calcium,Total 8.9 mg/dL (7.6-11.0); Carbon Dioxide 26.1 mmol/L (21.0-32.0); Chloride 103 mmol/L (98-108); Globulin 3.7 g/dL (2.2-4.2); Glucose 111 mg/dL (70-99); Potassium 4.3 mmol/L (3.3-5.1)
== END ==
LOC: OLS.ACW300 05:00
PROVIDERS: Visit Provider Family Medicine
DX: Z79.899 Other long term (current) drug therapy (principal)
CPT/HCPCS: 36415; 80053; 85027

== ENCOUNTER → 2025-03-13 04:00 | Outpatient (REF) | payer MEDICARE, MEDICAID, SELFPAY ==
[2025-03-13 07:47] LABS: Hematocrit 47.8 % (37-47); Hemoglobin 15.3 g/dL (12.0-15.0); Mean Corp Hgb Conc 32.0 g/dL (32-36); Mean Corpuscular Volume 99.0 fL (81-99); Mean Platelet Vol. 10.8 fl (6.2-12.0); Platelet Count 192 K/mm3 (150-450); RBC Distribution Width CV 14.2 % (11.6-14.6); RBC Distribution Width SD 52.4 fl (35.1-43.9); Red Blood Count 4.83 M/mm3 (4.2-5.4); White Blood Count 6.5 K/mm3 (4.4-11.0)
[2025-03-13 08:21] LABS: AST(SGOT) 26 U/L (<=31); Alanine Aminotransfer ALT/SGPT 17 U/L (<=34); Albumin, Serum 3.7 g/dL (3.4-4.8); Alkaline Phosphatase 90 U/L (35-104); Anion Gap 10 (5-15); BUN 17 mg/dL (4-19); BUN/Creat Ratio 20.1 RATIO (10-20); Calcium,Total 9.2 mg/dL (7.6-11.0); Carbon Dioxide 24.9 mmol/L (21.0-32.0); Chloride 105 mmol/L (98-108); Globulin 3.8 g/dL (2.2-4.2); Glucose 108 mg/dL (70-99); Potassium 4.6 mmol/L (3.3-5.1)
== END ==
LOC: OLS.ACW300 04:00
PROVIDERS: Referring Provider Family Medicine; Visit Provider Family Medicine
DX: M00.861 Arthritis due to other bacteria, right knee (principal); R53.1 Weakness; R54 Age-related physical debility; R62.7 Adult failure to thrive; J44.9 Chronic obstructive pulmonary disease, unspecified
CPT/HCPCS: 36415; 80053; 85027

== ENCOUNTER → 2025-05-31 05:00 | Outpatient (REF) | payer MEDICARE, MEDICAID, SELFPAY ==
--- OUTSIDE RECORDS SUMMARY | 2025-05-31 04:19 | XMS RPT_ITS | CCD ---
Author Organization [facility] Care Team Providers Care Salon Coordinator Name Role Phone Moreno Oates Primary Care Provider Lamonte Weber Unavailable Moreno Oates MD Primary Care Provider [phone] Moreno Oates MD Unavailable Moreno Oates MD Unavailable Sukhdeep YEE, Sanjana Unavailable Lamonte Weber Unavailable Sukhdeep YEE, Sanjana Unavailable Lamonte Weber Unavailable Moreno Oates MD [...] Gracie YEE, Moreno Gong Primary Care Provider [phone] Gracie YEE, Moreno R Unavailable Gracie YEE, Moreno R Unavailable Sukhdeep YEE, Sanjana Unavailable PROVIDER, UNKNOWN Referring Unavailable MORENO OATES Primary Care Unavailable Moreno Oates Primary Care Provider KENJI DO~[id number], KENJIJESSICA Rodríguez Attendi ng Unavailable KENJI DO~[id number], KENJIJESSICA Rodríguez Admitti ng Unavailable MORENO OATES Primary Care Unavailable Gracie YEE, Moreno Gong Primary Care Provider Sigifredo MANAGER HOUSE.SECRETARY TO THE VICE PRESIDENT, Carlos Unavailable [phone] Ender Oates MD Attending Provider Royer Maldonado Attending Provider UnavailMORENO German Primary Care Unavailable RED GUIDRY Admitting Unavailable HAROLDO, RED Attending Unavailable Lamonte Weber Unavailable Royer Maldonado Attending Unavailable Gracie RICKS, Ender Attending Unavailable Royer Maldonado Attending Unavailable Gracie RICKS, Ender Attending Unavailable Gracie RICKS, Ender Attending Unavailable Erictamoody RICKS, Ender Referring Unavailable Gracie RICKS, Ender Attending Unavailable Gracie RICKS, Ender Attending Unavailable Gracie RICKS, Ender Referring Unavailable Gracie RICKS, Ender Attending Unavailable Gracie RICKS, Ender Attending Unavailable Merary RICKS, Royer Attending Unavailable Erictamoody RICKS, Ender Attending Unavailable Kontamoody OLS, Ender Attending Unavailable Erictamoody RICKS, Ender Attending Unavailable Allergies Allergy Classification [...] [HYDROCODONE-ACETA MINOPHEN] Drug Allergy 08-15-19 17 [place] (5 sources) Cephalexin Drug Allergy 12-12-19 15 [place], [place] (5 sources) Nitrofurantoin Drug Allergy 12-12-19 15 [place], [place] (20 sources) gabapentin; Translations: [GABAPENTIN] Drug Allergy 10-08-19 19 [facility] Work Phone: (20 sources) NITROFURANTOIN, MACROCRYSTALS / Nitrofurantoin, Monohydrate; Translations: [NITROFURANTOIN MONOHYD/M-CRYST] Drug Allergy 02-13-20 16 [facility] (20 sources) Non-steroidal anti-inflammatory agent; Translations: [NSAIDS (NON-STEROIDAL ANTI-INFLAMMATORY DRUG)] Drug Intolerance 06-06-19 17 [facility] (20 sources) traMADol; Translations: [TRAMADOL] Drug Allergy 01-23-20 17 Contraindicati on-Medical Surgical [facility] (20 sources) Non-steroidal anti-inflammatory agent Drug Intolerance 06-06-19 17 GI [facility] (2 sources) Nitrofurantoin Drug Allergy 02-13-20 16 [facility] Medications Current Medications Medication Drug Class(es) Dates Sig (Normalized) Sig (Original) [id number] 200 actuat albuterol 0.09 mg/actuat metered dose inhaler (3 sources) beta2-Adrenergic Agonist Start: 02-02-2025 take 2 puff(s) by inhalation every six [...] candido twice daily. Take 1 capsule by [facility] twice daily for 7 days. 0.4 [...] Active Start: 10-16-2019 [facility] metoprolol tartrate (LOPRESSOR) [...] DERM CQ) 21 MG/24HR 1 patch nystatin [id number] unt/ml topical cream (20 sources) Polyene Antifungal [...] on above: Take 1 capsule by mo [facility] once daily. ondansetron 8 mg oral tablet [...] candido th once daily. polyethylene glycol 3350 41099 mg powder for oral solution (20 sources) Osmotic Laxative Start: End: take 1 dose by mouth once [...] by mouth. Active take 2 tablets by [facility] every twelve hours as needed for [...] (20 sources) Opioid Agonist Start: 05-24-20 End: 03-14-20 take 1 tablet by mouth every six hours oxyCODONE-acetaminop hen (PERCOCET) 5-325 mg tablet 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 120 tablet 01/13/2025 02/09/2025 Discontinued Start: 12-30-2023 End: 05-22-2024 take 1 [...] for 28 days. 20 ml albumin human, care home 250 mg/ml injection (2 sources) Human Serum [...] tablet (20 sources) Benzodiazepine Start: 05-24-2024 End: 03-14-2025 take 1 tablet by mouth twice daily diazePAM (VALIUM) 5 mg tablet Indications: Chronic anxiety Take 1 tablet by mouth two times a day for 30 days. 60 tablet 01/13/2025 02/09/2025 Discontinued Start: 02-26-2024 End: 05-22-2024 take 1 [...] oral capsule (20 sources) Start: 06-29-2023 End: 03-14-2025 take 1 capsule by mouth twice daily pregabalin (LYRICA) 150 mg capsule Indications: MS (multiple sclerosis) ([facility]) , Daily headache Take 1 capsule by mouth two times a day for 30 days. 60 capsule 01/13/2025 02/09/2025 Discontinued Start: 09-24-2022 End: 05-29-2023 take 1 [...] 0 06/19/2022 06/25/2022 Discontinued Start: 08-02-2021 End: 11-16-2022 take 1 capsule by mouth twice daily [...] on above: Take 1 capsule by mo [facility] twice daily for 30 days. Take 1 capsule by [facility] twice daily for 30 days. Do not start before July 02, 2022. Take 1 capsule by [facility] twice daily for 28 days. Take 1 capsule by [facility] two times a day for 30 [...] 2312 Start: 12-12-2019 take 1 capsule by [facility] three times daily valproic acid (DEPAKENE) 250 mg capsule Take 1 capsule by mouth three times daily. 90 capsule 2 12/12/2019 Active Comment on above: Take 1 capsule by [facility] three times daily. vancomycin (VANCOCIN) 1500 [...] Translations: [Chronic obstructive pulmonary disease, unspecified] Onset: 03-20-2025 Chronic Delirium, dementia, and amnestic and other cognitive disorders (2 sources) Age-related physical debility; Translations: [Age-related physical debility] Onset: 03-20-2025 Chronic Diseases of white blood cells (1 [...] sources) Multiple sclerosis; Translations: [Multiple sclerosis] Onset: 01-20-2025 12-26-2020 Chronic Nonmalignant breast conditions (1 source) [...] [Contusion of right knee] Onset: 02-03-2020 02-03-2020 Unclassified (1 source) Multiple sclerosis, unspecified; Translations: [Multiple sclerosis, unspecified] Onset: 03-20-2025 Past or Other Problems Problem Classification Problem [...] Translations: [Unspecified convulsions] Onset: 11-05-2019 12-26-2020 Episodic Fever of unknown origin (1 source) Fever, unspecified; Translations: [Fever, unspecified] Onset: 11-17-2024 Episodic Genitourinary symptoms and ill-defined conditions (20 [...] Long-term current use of benzodiazepine; Translations: [Other filler leaf cutter long (current) drug therapy] Onset: 11-28-2017 07-10-2018 Episodic Other aftercare (20 sources) Prescribed medication regimen behavior finding; Translations: [buttermaker (current) use of opiate analgesic] Onset: 11-28-2017 11-05-2019 Episodic Other aftercare (2 sources) Other filler leaf cutter long (current) drug therapy; Translations: [Other filler leaf cutter long (current) drug therapy] Onset: 06-03-2024 Episodic Other circulatory disease (20 sources) Low blood pressure; Translations: [Hypotension, unspecified] Onset: 07-09-2018 07-09-2018 Episodic Other connective tissue disease (20 sources) Disorder of tendon; Translations: [Other specified disorders of synovium and tendon, multiple sites] Onset: 03-24-2017 02-24-2018 Episodic Other fractures (1 source) Stable burst [...] Onset: 10-20-2019 Resolved: 10-25-2019 10-25-2019 Chronic Other non-traumatic joint disorders (20 sources) Pain [...] Test Name Value Interpretation Reference Range Facility [facility] 03-16-2025 [facility] Telephone (FPWADS) CHARLIE NGUYEN ([id number]) 1955 F CHT Date Time Provider Department 03/16/25 MORENO OATES During your visit today, we recorded the following information about you: Roderick GaviriaDAVON 03/16/2025 11:54 AM Signed Received labs [facility]. Placed in provider's inbox for review. Route to [place] scanning Allergies As of Date: 03/16/2025 Noted Allergy Reaction NSAIDS (NON-STEROIDAL ANTI-INFLAM* 7 [...] Reason for Visit: Received Outside Medical Records [[id number]] Cmt: [facility] labs Prescriptions as of 03/16/2025 - diazePAM (VALIUM) 5 mg tablet Take 1 tablet by mouth two times a day for 30 days. - oxyCODONE-acetaminoph en (PERCOCET) 5-325 mg tablet Take 1 tablet by mouth every 6 hours for 30 days. - pregabalin (LYRICA) 150 mg capsule Take 1 capsule by mouth two times a day for 30 days. Patient should start on February 12, 2025. - albuterol HFA (PROVENTIL HFA) 90 mcg/actuation inhaler Inhale 2 puffs as instructed every 6 hours as needed. - pantoprazole DR (PROTONIX) 40 mg tablet [...] once daily. Problem List As Of Date 03/16/2025 Noted Resolved Osteoarthritis of right knee [M17.11] MS (multiple sclerosis) ([facility]) [G35.D] Essential hypertension [I10] 02/13/2016 Lumbar disc herniation [...] [M25.561] 04/16/2017 04/21/2017 Patellar dislocation, right, initial (more content not included)... [facility] Telephone (FPW[facility]) CHARLIE NGUYEN ([id number]) 1955 F [facility] Date Time Provider Department 02/09/25 MORENO OATES During your visit today, we recorded the following information about you: Allergies As of Date: 02/09/2025 Noted Allergy Reaction NSAIDS (NON-STEROIDAL ANTI-INFLAM* 7 [...] by: Leigh Calix MA - Fully Assessed Prescriptions as of 02/13/2025 - diazePAM (VALIUM) 5 mg tablet Take 1 tablet by mouth two times a day for 30 days. Patient should start on February 12, 2025. - oxyCODONE-acetaminoph en (PERCOCET) 5-325 mg tablet Take 1 tablet by mouth every 6 hours for 30 days. Patient should start on February 12, 2025. - pregabalin (LYRICA) 150 mg capsule Take 1 capsule by mouth two times a day for 30 days. Patient should start on February 12, 2025. - albuterol HFA (PROVENTIL HFA) 90 mcg/actuation inhaler Inhale 2 puffs as instructed every 6 hours as needed. - pantoprazole DR (PROTONIX) 40 mg tablet [...] once daily. Problem List As Of Date 02/09/2025 Noted Resolved Osteoarthritis of right knee [M17.11] [...] [Z96.651] 06/25/2017 07/08/2017 Acute pain of right k (more content not included)... Normal [facility] 02-02-2025 [facility] Telephone (FPWADS) CHARLEI NGUYEN ([id number]) 1955 [facility] Date Time Provider Department 02/02/25 MORENO OATES During your visit today, we recorded the following information about you: Pride JoshuaHoda 02/02/2025 9:49 AM Signed Charlie is a patient of Moreno Oates MD today Tamar Nurse from [facility] called to request a rescue inhaler for this patient. She stated she texted Dr. Oates who told her to call the office for the request. Please send to [facility]. Patient has been identified by name and birthdate. Was an appointment scheduled: No Closing statement: Results or non-symptom based questions: Thank you for calling [facility], your call will be returned within the next business day. Carlos Do APRN.BENJAMIN 02/02/2025 11:15 AM Signed Rx sent. Carlos Mei APRN.BENJAMIN Requested Prescriptions Signed Prescriptions Disp Refills albuterol HFA (PROVENTIL HFA) 90 mcg/actuation inhaler 1 each 0 Sig: Inhale 2 puffs as instructed every 6 hours as needed. Authorizing Provider: CARLOS MEI Pharmacy Information Pharmacy Address [facility] [address] [place] [address] Allergies As of Date: 02/02/2025 Noted Allergy [...] lifetime. - (more content not included)... Normal [facility] CNPNon 01-12-2025 CNPN Telephone (FPWADS) CHARLIE NGUYEN ([id number]) 1955 F T Date Time Provider Department 01/12/25 MORENO OATES FPLAUREN During your visit today, we recorded the following information about you: Roderick Gaviria LPN 01/12/2025 3:01 PM Signed Received lab results from [facility]. Placed in provider's inbox for review. Route to [place] scanning Allergies As of Date: 01/12/2025 Noted [...] for Visit: Outside Lab Results [[id number]] Cmt: [facility] Prescriptions as of 01/12/2025 - pregabalin [...] revision o (more content not included)... Normal [facility] CNPNon 12-15-2024 CNPN Telephone (FPWADS) CHARLIE NGUYEN ([id number]) 1955 F T Date Time Provider Department 12/15/24 MORENO OAETS FPWADS During your visit today, we recorded the following information about you: Roderick Gaviria LPN 12/15/2024 5:15 PM Signed Received lab results from [facility]. Placed in provider's inbox for review. [...] Reason for Visit: Received Outside Medical Records [[id number]] Cmt: [facility]- labs Prescriptions as of 12/15/2024 - diazePAM [...] [M25.561] 06/25/2017 (more content not included)... Normal [facility] [id number] 10-20-2024 [id number] Next Site of Care Admission Date: 10/17/2024 12:22 PM Patient Name: CHARLIE NGUYEN Location: [address] CARDIAC U/[facility] [id number] A Date of : 1955 ------- Placement Information ------- Referral Type:Care Home/SNF - Return Referral ID:[id number] Provider Name:Yoavni Address 1:[address] Address 2: City:[place] Selection Factors:Returning to Facility State:[place] [facility] [phone] MAR & Discharge med list transmitted to [facility] via [employer] per TCC request. 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 Pickup scheduled for 5pm. Normal [facility] Nursing Note Pt refusing blood draw this am. Pt became verbally abusive to nurse and phlebotomy. Educated pt on reason why blood was going to be drawn. Pt still refuses. Will continue to monitor this shift. Normal [facility] 30on 10-19-2024 30 Problem: Knowledge Deficit Goal: Patient/family/caregi kendy demonstrates understanding of disease process, treatment plan, medications, and discharge instructions Outcome: Progressing Problem: Potential for Compromised Skin Integrity Goal: Skin Integrity is Maintained or Improved Outcome: Progressing Goal: Nutritional status is improving Outcome: Progressing Problem: Urinary Incontinence Goal: Perineal skin integrity is maintained or improved Outcome: Progressing Normal [facility] 30 Problem: Knowledge Deficit Goal: Patient/family/caregi kendy demonstrates understanding of disease process, treatment plan, medications, and discharge instructions Outcome: Progressing Problem: Potential for Compromised Skin Integrity Goal: Skin Integrity is Maintained or Improved Outcome: Progressing Goal: Nutritional status is improving Outcome: Progressing Problem: Urinary Incontinence Goal: Perineal skin integrity is maintained or improved Outcome: Progressing Normal [facility] BASIC METABOLIC PANELon 05 Anion gap [Moles/Vol] 9 mmol/L Normal 3-13 [facility] Comment on above: Performed By: #### L AB15 ####Bindery Machine Operator: KWESI SANCHEZ ([id number])[facility] PEDERSON (SBHLAB)[address] [place] [address] Calcium [Mass/Vol] 8.6 mg/dL Low 8.8-10.0 [facility] Comment on above: Performed By: #### L AB15 ####Bindery Machine Operator: KWESI SANCHEZ ([id number])ADINA CORTEZN (SBHLAB)[address] Chloride [Moles/Vol] 101 mmol/L Normal 98-107 [facility] Comment on above: Performed By: #### L AB15 ####Bindery Machine Operator: KWESI SANCHEZ ([id number])[facility] BEREBANNER (SBHLAB)[address] CO2 [Moles/Vol] 25 mmol/L Normal 23-31 [facility] Comment on above: Performed By: #### L AB15 ####Bindery Machine Operator: KWESI SANCHEZ ([id number])[facility] (SBHLAB)[address] Creatinine [Mass/Vol] 0.82 mg/dL Normal 0.57-1.11 [facility] Comment on above: Performed By: #### L AB15 ####Bindery Machine Operator: KWESI SANCHEZ ([id number])[facility] (SBHLAB)[address] GLOMERULAR FILTRATION RATE ML/MIN/1.73 SQ M.PREDICTED 78.0 mL/min/1.73m*2 Normal >60.0 [facility] Comment on above: Result Comment: Calc ulation based on the Chronic Kidney Disease Epidemiology Collaboration (CKD-EPI) equation refit without adjustment for race Performed By: #### L AB15 ####Bindery Machine Operator: KWESI SANCHEZ ([id number])[facility] BEREBANNER (SBHLAB)[address] Glucose [Mass/Vol] 107 mg/dL Normal 82-115 [facility] Comment on above: Performed By: #### L AB15 ####Bindery Machine Operator: KWESI SANCHEZ ([id number])[facility] (HLAB)[address] Potassium [Moles/Vol] 4.0 mmol/L Normal 3.5-5.1 [facility] Comment on above: Result Comment: [facility] potassium values may be up to 0.5 mmol/L lower than serum values. Performed By: #### L AB15 ####Bindery Machine Operator: KWESI SANCHEZ ([id number])[facility] PEDERSON (SBHLAB)[address] [place] [address] Sodium [Moles/Vol] 135 mmol/L Low 136-145 [facility] Comment on above: Performed By: #### L AB15 ####Bindery Machine Operator: KWESI SANCHEZ ([id number])[facility]USMarc[facility] BARBDR. D[facility] HOSPITALN (SBHLAB)[address] [place] [address] Urea nitrogen [Mass/Vol] 23 mg/dL Normal 9-23 [facility] Comment on above: Performed By: #### L AB15 ####Bindery Machine Operator: KWESI PIKEAGUSTIN ([id number])[facility]USMarc[facility] BARBBANNER (SBHLAB)[address] [place] [address] CBC WITH AUTO DIFFERENTIALon 10-19-2024 Basophils (Bld) [#/Vol] 0.1 10*3/uL Normal 0.0-0.2 [facility] Comment on above: Performed By: #### L [id number] ####Bindery Machine Operator: KWESI SANCHEZ ([id number])[facility]USMarc[facility] BARBDR. DAN C. TRIG[facility] MEMORIAL HOSPITALN (SBHLAB)[address] [place] [address] Basophils/100 WBC (Bld) 0.5 % Normal 0.0-2.0 S [facility] Comment on above: Performed By: #### L [id number] ####Bindery Machine Operator: KWESI SANCHEZ ([id number])[facility]USMarc[facility] BARBDR. DAN C. TRIG[facility] MEMOR[facility] HOSPITALN (SBHLAB)[address] [place] [address] Eosinophils (Bld) [#/Vol] 0.0 10*3/uL Normal 0.0-0.5 [facility] Comment on above: Performed By: #### L [id number] ####Bindery Machine Operator: KWESI SANCHEZ ([id number])[facility]USMarc[facility] BARBBANNER (SBHLAB)[address] [place] [address] Eosinophils/100 WBC (Bld) 0.0 % Normal 0.0-6.0 [facility] Comment on above: Performed By: #### L [id number] ####Bindery Machine Operator: KWESI SANCHEZ ([id number])[facility] ([facility])[address] [place] [address] Erythrocyte distribution width (RBC) [Ratio] 14.4 % Normal 11.5-15.0 [facility] Comment on above: Performed By: #### L [id number] ####Bindery Machine Operator: KWESI SANCHEZ ([id number])[facility] ([facility])[address] [place] [address] Hematocrit (Bld) [Volume fraction] 42.7 % Normal 35.0-47.0 [facility] Comment on above: Performed By: #### L [id number] ####Bindery Machine Operator: KWESI SANCHEZ ([id number])[facility] ([facility])[address] [place] [address] Hemoglobin (Bld) [Mass/Vol] 13.9 g/dL Normal 11.7-16.0 [facility] Comment on above: Performed By: #### L [id number] ####Bindery Machine Operator: KWESI SANCHEZ ([id number])[facility] ([facility])[address] [place] [address] IMMATURE GRANS % 0.9 % Normal 0.0-2.0 [facility] Comment on above: Performed By: #### L [id number] ####Bindery Machine Operator: KWESI SANCHEZ ([id number])[facility] ([facility])[address] [place] [address] IMMATURE GRANS ABSOLUTE 0.1 10*3/uL High <0.1 [facility] Comment on above: Performed By: #### L [id number] ####Bindery Machine Operator: KWESI SANCHEZ ([id number])[facility] ([facility])[address] [place] [address] Lymphocytes (Bld) [#/Vol] 1.6 10*3/uL Normal 1.0-4.3 [facility] Comment on above: Performed By: #### L [id number] ####Bindery Machine Operator: KWESI PIKEAGUSTIN ([id number])ADINA CORTEZAriel (SBHLAB)[address] Lymphocytes/100 WBC (Bld) 15.1 % Normal 15.0-45.0 [facility] Comment on above: Performed By: #### L [id number] ####Bindery Machine Operator: KWESI ARMSTRONGFERNANDA ([id number])[facility]USMarc[facility] BLACKBURNDR. DAN C. TRIGG MEMORIAL HOSPITALN (SBHLAB)[address] MCH (RBC) [Entitic mass] 32.2 pg Normal 26.0-34.0 [facility] Comment on above: Performed By: #### L [id number] ####Bindery Machine Operator: KWESI DANIEL ([id number])[facility]USMarc[facility] CORTEZAriel (SBHLAB)[address] MCHC 32.6 % Normal 30.5-36.0 [facility] Comment on above: Performed By: #### L [id number] ####Bindery Machine Operator: KWESI PIKEAGUSTIN ([id number])[facility]USMarc[facility] CORTEZAriel (SBHLAB)[address] MCV (RBC) [Entitic vol] 98.8 fL Normal 77.0-99.0 S [facility] Comment on above: Performed By: #### L [id number] ####Bindery Machine Operator: KWESI SANCHEZ ([id number])[facility]USMarc[facility] BLACKBURNCELIAN (SBHLAB)[address] Monocytes (Bld) [#/Vol] 1.5 10*3/uL High 0.0-0.9 [facility] Comment on above: Performed By: #### L [id number] ####Bindery Machine Operator: KWESI PIKEAGUSTIN ([id number])[facility]USMarc[facility] BLACKBURNSWAPNA (SBHLAB)[address] Monocytes/100 WBC (Bld) 13.8 % High 5.0-13.0 S [facility] Comment on above: Performed By: #### L [id number] ####Bindery Machine Operator: KWESI SANCHEZ ([id number])[facility]AMPUSA [place] (SBHLAB)[address] NEUTROPHILS ABSOLUTE 7.4 10*3/uL Normal 1.8-7.5 [facility] Comment on above: Performed By: #### L [id number] ####Bindery Machine Operator: KWESI SANCHEZ ([id number])[facility]AMPUSA [place] (SBHLAB)[address] Neutrophils/100 WBC (Bld) 69.7 % Normal 38.0-82.0 [facility] Comment on above: Performed By: #### L [id number] ####Bindery Machine Operator: KWESI SANCHEZ ([id number])[facility]AMPUSA [facility] (SBHLAB)[address] NRBC 0.0 /100 WBCs Normal 0.0-2.0 [facility] Comment on above: Performed By: #### L [id number] ####Bindery Machine Operator: KWESI SANCHEZ ([id number])[facility] [place] (SBHLAB)[address] Platelet mean volume (Bld) [Entitic vol] 9.9 fL Normal 9.0-12.7 [facility] Comment on above: Performed By: #### L [id number] ####Bindery Machine Operator: KWESI SANCHEZ ([id number])[facility]AMPUSA [place] (SBHLAB)[address] [place] [address] [place] Platelets (Bld) [#/Vol] 207 10*3/uL Normal 140-440 [facility] Comment on above: Performed By: #### L [id number] ####Bindery Machine Operator: KWESI SANCHEZ ([id number])[facility] [place] (SB[facility])[address] RBC (Bld) [#/Vol] 4.32 10*6/uL Normal 3.80-5.20 [facility] Comment on above: Performed By: #### L [id number] ####Bindery Machine Operator: KWESI SANCHEZ ([phone])[facility] (SBHLAB)[address] [place] [address] WBC (Bld) [#/Vol] 10.6 10*3/uL Normal 3.6-10.7 [facility] Comment on above: Performed By: #### L [id number] ####Bindery Machine Operator: KWESI SANCHEZ ([phone])[facility] (SBHLAB)[address] Nursing Noteon 10-19-2024 Nursing Note Wound [...] sitting in chair. Verbalized understanding. Discussed with paperhanger pipe. Staff states MASD to gluteal cleft and redness to abdominal folds. Prevention Measures in place, including: [place] sheet with pillows/wedges, Heels elevated off bed on pillows, Zinc/Moisture Barrier ointment, Waffle chair cushion (obtain for pt once getting out of bed to chair). Skin Care precaution order set in place. Dietitian parts technician involved. PT consult in place. D/W nursing staff. Will continue to follow pt. Please secure chat for any questions or concerns. Tanesha Balderas RN Normal [facility] Progress Noteon 10-19-2024 Progress Note PHYSICAL THERAPY [facility] Name/MRN: Charlie Nguyen ([id number]) Date: 10/19/2024 Chart review complete. RN cleared [...] and as schedule permits. Tino Jung, PT [facility] Progress Note Nutrition rescreen complete. Pt assigned a level one for nutrition care. [facility] 30on 10-18-2024 30 Problem: Knowledge Deficit Goal: Patient/family/caregi kendy demonstrates understanding of disease process, treatment plan, medications, and discharge instructions Outcome: Progressing Problem: Potential for Compromised Skin Integrity Goal: Skin Integrity is Maintained or Improved Outcome: Progressing Goal: Nutritional status is improving Outcome: Progressing Problem: Urinary Incontinence Goal: Perineal skin integrity is maintained or improved Outcome: Progressing [facility] [id number] 10-18-2024 [id number] -Pt admitted for altered mental status/UTI. -Chart reviewed -Pt is from [facility], he is LTC and a bedhold. -Will not need auth to return. -Tasked INTERNAL CONTROL CONSULTANT to send return referral to facility. -Receiving IV ATB -PT ordered and pending at this time -On 4L O2, 2L is her baseline -Left HIPAA compliant VM to daughter for return call to verify discharge plan. -Discharge plan at this time is to return to [facility]. -manager vehicle to follow and assist as needed. [facility] BASIC METABOLIC PANELon 09-30 Anion gap [Moles/Vol] 11 mmol/L Normal 3-13 [facility] Comment on above: Performed By: #### L AB15 ####Bindery Machine Operator: KWESI SANCHEZ ([phone])[facility] (SBHLAB)[address] [place] [address] Calcium [Mass/Vol] 9.2 mg/dL Normal 8.8-10.0 [facility] Comment on above: Performed By: #### L AB15 ####Bindery Machine Operator: KWESI SANCHEZ ([phone])[facility] [place] (SBHLAB)[address] Chloride [Moles/Vol] 99 mmol/L Normal 98-107 [facility] Comment on above: Performed By: #### L AB15 ####Bindery Machine Operator: KWESI ARMSTRONGFERNANDA ([phone])[facility] (SBHLAB)[address] CO2 [Moles/Vol] 24 mmol/L Normal 23-31 [facility] Comment on above: Performed By: #### L AB15 ####Bindery Machine Operator: KWESI ARMSTRONGFERNANDA ([phone])[facility] ([facility])[address] Creatinine [Mass/Vol] 0.85 mg/dL Normal 0.57-1.11 [facility] Comment on above: Performed By: #### L AB15 ####Bindery Machine Operator: KWESI PIKEAGUSTIN ([phone])[facility] ([facility])[address] GLOMERULAR FILTRATION RATE ML/MIN/1.73 SQ M.PREDICTED 74.7 mL/min/1.73m*2 Normal >60.0 [facility] Comment on above: Result Comment: Calc ulation based on the Chronic Kidney Disease Epidemiology Collaboration (CKD-EPI) equation refit without adjustment for race Performed By: #### L AB15 ####Bindery Machine Operator: KWESI PIKEAGUSTIN ([phone])[facility] (HLAB)[address] Glucose [Mass/Vol] 106 mg/dL Normal 82-115 [facility] Comment on above: Performed By: #### L AB15 ####Bindery Machine Operator: KWESI SANCHEZ ([phone])[facility] ([facility])[address] Potassium [Moles/Vol] 4.1 mmol/L Normal 3.5-5.1 [facility] Comment on above: Result Comment: Plas ma potassium values may be up to 0.5 mmol/L lower than serum values. Performed By: #### L AB15 ####Bindery Machine Operator: KWESI SANCHEZ ([phone])[facility] (SBHLAB)[address] [place] [address] Sodium [Moles/Vol] 134 mmol/L Low 136-145 [facility] Comment on above: Performed By: #### L AB15 ####Bindery Machine Operator: KWESI ARMSTRONGJAZMINAGUSTIN ([phone])[facility] (SBHLAB)[address] Urea nitrogen [Mass/Vol] 22 mg/dL Normal 9-23 [facility] Comment on above: Performed By: #### L AB15 ####Bindery Machine Operator: KWESI ARMSTRONGFERNANDA ([phone])[facility] ([facility])[address] [place] [address] CBC WITH AUTO DIFFERENTIALon 10-18-2024 Erythrocyte distribution width (RBC) [Ratio] 14.4 % Normal 11.5-15.0 [facility] Comment on above: Performed By: #### L [id number], [id number] ####Bindery Machine Operator: KWESI PIKEAGUSTIN ([phone])[facility] (SBHLAB)[address] [place] [address] Hematocrit (Bld) [Volume fraction] 47.6 % High 35.0-47.0 [facility] Comment on above: Performed By: #### L [id number], [id number] ####Bindery Machine Operator: KWESI PIKEAGUSTIN ([phone])[facility] (SBHLAB)[address] [place] [address] Hemoglobin (Bld) [Mass/Vol] 15.3 g/dL Normal 11.7-16.0 [facility] Comment on above: Performed By: #### L [id number], [id number] ####Bindery Machine Operator: KWESI SANCHEZ ([phone])[facility] (SBHLAB)[address] [place] [address] MCH (RBC) [Entitic mass] 31.9 pg Normal 26.0-34.0 [facility] Comment on above: Performed By: #### L [id number], [id number] ####Bindery Machine Operator: KWESI SANCHEZ ([phone])[facility] [place] (SBHLAB)[address] MCHC 32.1 % Normal 30.5-36.0 [facility] Comment on above: Performed By: #### L [id number], [id number] ####Bindery Machine Operator: KWESI SANCHEZ ([phone])[facility]US[facility] CORTEZAriel (SBHLAB)[address] MCV (RBC) [Entitic vol] 99.4 fL High 77.0-99.0 S [facility] Comment on above: Performed By: #### L [id number], [id number] ####Bindery Machine Operator: KWESI SANCHEZ ([id number])[facility]US[facility] [place] (SBHLAB)[address] Platelet mean volume (Bld) [Entitic vol] 9.8 fL Normal 9.0-12.7 [facility] Comment on above: Performed By: #### L [id number], [id number] ####Bindery Machine Operator: KWESI SANCHEZ ([phone])[facility] [place] (SBHLAB)[address] [place] [address] Platelets (Bld) [#/Vol] 202 10*3/uL Normal 140-440 [facility] Comment on above: Performed By: #### L [id number], [id number] ####Bindery Machine Operator: KWESI SANCHEZ ([id number])[facility] [place] (SBHLAB)[address] RBC (Bld) [#/Vol] 4.79 10*6/uL Normal 3.80-5.20 [facility] Comment on above: Performed By: #### L [id number], [id number] ####Bindery Machine Operator: KWESI SANCHEZ ([phone])[facility] [place] ([facility])[address] WBC (Bld) [#/Vol] 13.9 10*3/uL High 3.6-10.7 [facility] Comment on above: Performed By: #### L [id number], [id number] ####Bindery Machine Operator: KWESI SANCHEZ ([phone])[facility] [place] ([facility])[address] MANUAL DIFFERENTIAL (CELLAVI PELON)on 10-18-2024 BAND NEUTROPHILS TOTAL PER COUNTED LEUKOCYTES BY MANUAL COUNT 2 Normal [facility] Comment on above: Performed By: #### L [id number], [id number] ####Bindery Machine Operator: KWESI SANCHEZ ([phone])[facility] (SB[facility])[address] BANDS (10*3/UL) IN BLOOD-CELLAVISION 0.3 10*3/uL High <=0.0 [facility] Comment on above: Performed By: #### L [id number], [id number] ####Bindery Machine Operator: KWESI SANCHEZ ([id number])[facility] (SB[facility]AB)[address] BASOPHILS TOTAL PER COUNTED LEUKOCYTES BY MANUAL COUNT Normal [facility] Comment on above: Performed By: #### L RE3598, [id number] ####Bindery Machine Operator: KWESI SANCHEZ ([phone])[facility]USA BARBDR. [facility] (SBHLAB)[address] BLASTS TOTAL PER COUNTED LEUKOCYTES BY MANUAL COUNT Normal [facility] Comment on above: Performed By: #### L [id number], [id number] ####Bindery Machine Operator: KWESI SANCHEZ ([phone])[facility] (SBHLAB)[address] LUIS CELLS PRESENCE IN BLOOD BY LIGHT MICROSCOPY Moderate Abnormal (none) [facility] Comment on above: Performed By: #### L [id number], [id number] ####Bindery Machine Operator: KWESI DANIEL ([phone])[facility] [place] (SB[facility])[address] [place] [address] [place] EOSINOPHILS TOTAL PER COUNTED LEUKOCYTES BY MANUAL COUNT Normal [facility] Comment on above: Performed By: #### L UN3418, [id number] ####Bindery Machine Operator: KWESI DANIEL ([phone])[facility] [place] ([facility])[address] [place] [address] [place] LYMPHOCYTES (10*3/UL) IN BLOOD-CELLAVISION 0.8 10*3/uL Low 1.0-4.3 [facility] Comment on above: Performed By: #### L YV7358, [id number] ####Bindery Machine Operator: KWESI DANIEL ([id number])[facility] [place] ([facility])[address] LYMPHOCYTES TOTAL PER COUNTED LEUKOCYTES BY MANUAL COUNT 6 Normal [facility] Comment on above: Performed By: #### L [id number], [id number] ####Bindery Machine Operator: KWESI DANIEL ([id number])[facility] [place] ([facility])[address] [place] [address] [place] LYMPHOCYTES/100 LEUKOCYTES IN BLOOD-CELLAVISION 6 % Low 15-45 [facility] Comment on above: Performed By: #### L [id number], [id number] ####Bindery Machine Operator: KWESI ARMSTRONGFERNANDA ([phone])[facility] [place] ([facility])[address] METAMYELOCYTES TOTAL PER COUNTED LEUKOCYTES BY MANUAL COUNT [facility] Comment on above: Performed By: #### L [id number], [id number] ####Bindery Machine Operator: KWESI DANIEL ([phone])[facility] [place] ([facility])[address] [place] [address] [place] MONOCYTES (10*3/UL) IN BLOOD-CELLAVISION 1.3 10*3/uL High 0.0-0.9 [facility] Comment on above: Performed By: #### L [id number], [id number] ####Bindery Machine Operator: KWESI SANCHEZ ([id number])[facility] [place] (SBHLAB)[address] [place] [address] [place] MONOCYTES TOTAL PER COUNTED LEUKOCYTES BY MANUAL COUNT 9 Normal [facility] Comment on above: Performed By: #### L RQ3784, [id number] ####Bindery Machine Operator: KWESI SANCHEZ ([phone])[facility] [place] (SBHLAB)[address] [place] [address] [place] MONOCYTES/100 LEUKOCYTES IN BLOOD-CHARLES 9 % Normal 5-13 [facility] Comment on above: Performed By: #### L [id number], [id number] ####Bindery Machine Operator: KWESI SANCHEZ ([phone])[facility] [place] ([facility])[address] MYELOCYTES COUNTED BY MANUAL COUNT Normal [facility] Comment on above: Performed By: #### L [id number], [id number] ####Bindery Machine Operator: KWESI SANCHEZ ([phone])[facility] [place] ([facility])[address] [place] [address] [place] NEUTROPHILS BAND FORM/100 LEUKOCYTES IN BLOOD-CELLAVISI 2 % High <=0 [facility] Comment on above: Performed By: #### L TG2212, [id number] ####Bindery Machine Operator: KWESI SANCHEZ ([phone])[facility] [place] ([facility])[address] [place] [address] [place] NEUTROPHILS TOTAL PER COUNTED LEUKOCYTES BY MANUAL COUNT 83 Normal [facility] Comment on above: Performed By: #### L QK4107, [id number] ####Bindery Machine Operator: KWESI SANCHEZ ([phone])[facility] [place] ([facility])[address] [place] [address] [place] POIKILOCYTOSIS (PRESENCE) IN BLOOD BY LIGHT MICROSCOPY Slight Abnormal (none) [facility] Comment on above: Performed By: #### L [id number], [id number] ####Bindery Machine Operator: KWESI SANCHEZ ([phone])[facility] [place] (SBHLAB)[address] [place] [address] [place] PROMYELOCYTES TOTAL PER COUNTED LEUKOCYTES BY MANUAL COUNT [facility] Comment on above: Performed By: #### L AL8014, [id number] ####Bindery Machine Operator: KWESI SANCHEZ ([id number])[facility] [place] (SBHLAB)[address] [place] [address] [place] RBC MORPHOLOGY IN BLOOD abnormal Normal S [facility] Comment on above: Performed By: #### L YG2659, [id number] ####Bindery Machine Operator: KWESI SANCHEZ ([id number])[facility] [place] (SBHLAB)[address] [place] [address] [place] SEGMENTED NEUTROPHILS (10*3/UL) IN BLOOD-CELLAVISION 11.8 10*3/uL High 1.8-7.5 [facility] Comment on above: Performed By: #### L [id number], [id number] ####Bindery Machine Operator: KWESI SANCHEZ ([phone])[facility] [place] (SBHLAB)[address] [place] [address] [place] SEGMENTED NEUTROPHILS/100 LEUKOCYTES-CE 83 % High 38-82 [facility] Comment on above: Performed By: #### L RE4559, [id number] ####Bindery Machine Operator: KWESI SANCHEZ ([id number])[facility] [place] (SBHLAB)[address] [place] [address] [place] UNCLASSIFIED CELLS TOTAL PER COUNTED LEUKOCYTES BY MANUAL COUNT [facility] Comment on above: Performed By: #### L [id number], [id number] ####Bindery Machine Operator: KWESI SANCHEZ ([id number])[facility] [place] (SBHLAB)[address] [place] [address] [place] VARIANT LYMPHOCYTES TOTAL PER COUNTED LEUKOCYTES BY MANUAL COUNT [facility] Comment on above: Performed By: #### L [id number], [id number] ####Bindery Machine Operator: KWESI SANCHEZ ([phone])[facility] [place] ([facility])[address] Progress Noteon 10-18-2024 Progress Note PHYSICAL THERAPY [facility] Name/MRN: Charlie Nguyen ([id number]) Date: 10/18/2024 Chart review completed. PT assessment attempted, patient currently declining to participate in PT and to attempt OOB mobility this date despite multiple options provided. Unable to encourage patient this date. Will continue to follow and re-attempt as appropriate. Nathaly Javier, PT Normal [facility] BASIC METABOLIC PANELon 09-29 Anion gap [Moles/Vol] 10 mmol/L Normal 3-13 [facility] Comment on above: Performed By: #### L AB15 #### Bindery Machine Operator: KWESI SANCHEZ ([id number]) [facility] (SBHLAB) [address] Calcium [Mass/Vol] 8.9 mg/dL Normal 8.8-10.0 [facility] Comment on above: Performed By: #### L AB15 #### Bindery Machine Operator: KWESI SANCHEZ ([phone]) [facility] (SBHLAB) [address] Chloride [Moles/Vol] 100 mmol/L Normal 98-107 [facility] Comment on above: Performed By: #### L AB15 #### Bindery Machine Operator: KWESI SANCHEZ ([id number]) [facility] (SBHLAB) [address] [place] [address] [place] CO2 [Moles/Vol] 24 mmol/L Normal 23-31 [facility] Comment on above: Performed By: #### L AB15 #### Bindery Machine Operator: KWESI SANCHEZ ([phone]) [facility] (SBHLAB) [address] Creatinine [Mass/Vol] 0.82 mg/dL Normal 0.57-1.11 [facility] Comment on above: Performed By: #### L AB15 #### Bindery Machine Operator: KWESI SANCHEZ ([phone]) [facility] (SBHLAB) [address] [place] [address] [place] GLOMERULAR FILTRATION RATE ML/MIN/1.73 SQ M.PREDICTED 78.0 mL/min/1.73m*2 Normal >60.0 [facility] Comment on above: Result Comment: Calc ulation based on the Chronic Kidney Disease Epidemiology Collaboration (CKD-EPI) equation refit without adjustment for race Performed By: #### L AB15 #### Bindery Machine Operator: KWESI SANCHEZ ([id number]) [facility] (HLAB) [address] Glucose [Mass/Vol] 135 mg/dL High 82-115 [facility] Comment on above: Performed By: #### L AB15 #### Bindery Machine Operator: KWESI SANCHEZ ([phone]) [facility] ([facility]) [address] Potassium [Moles/Vol] 4.5 mmol/L Normal 3.5-5.1 [facility] Comment on above: Result Comment: [facility] potassium values may be up to 0.5 mmol/L lower than serum values. Performed By: #### L AB15 #### Bindery Machine Operator: KWESI SANCHEZ ([phone]) [facility] ([facility] [address] Sodium [Moles/Vol] 134 mmol/L Low 136-145 [facility] Comment on above: Performed By: #### L AB15 #### Bindery Machine Operator: KWESI SANCHEZ ([phone]) [facility] ([facility] [address] [place] [address] [place] Urea nitrogen [Mass/Vol] 21 mg/dL Normal 9-23 [facility] Comment on above: Performed By: #### L AB15 #### Bindery Machine Operator: KWESI SANCHEZ ([id number]) [facility] ([facility] [address] CBC WITH AUTO DIFFERENTIALon 10-17-2024 Erythrocyte distribution width (RBC) [Ratio] 14.4 % Normal 11.5-15.0 [facility] Comment on above: Performed By: #### L [id number], [id number] ####Bindery Machine Operator: KWESI SANCHEZ ([id number])[facility] (SB[facility]AB)[address] Hematocrit (Bld) [Volume fraction] 43.4 % Normal 35.0-47.0 [facility] Comment on above: Performed By: #### L [id number], [id number] ####Bindery Machine Operator: KWESI SANCHEZ ([id number])[facility]USA BARBDR. [facility] (SBHLAB)[address] Hemoglobin (Bld) [Mass/Vol] 14.3 g/dL Normal 11.7-16.0 [facility] Comment on above: Performed By: #### L [id number], [id number] ####Bindery Machine Operator: KWESI SANCHEZ ([id number])[facility] [place] ([facility])[address] MCH (RBC) [Entitic mass] 32.1 pg Normal 26.0-34.0 [facility] Comment on above: Performed By: #### L [id number], [id number] ####Bindery Machine Operator: KWESI SANCHEZ ([id number])[facility]USMarcos BLACKBURNDR. DAN [facility]N (SBHLAB)[address] [place] [address] MCHC 32.9 % Normal 30.5-36.0 [facility] Comment on above: Performed By: #### L [id number], [id number] ####Bindery Machine Operator: KWESI SANCHEZ ([id number])[facility] [place] ([facility])[address] MCV (RBC) [Entitic vol] 97.3 fL Normal 77.0-99.0 [facility] Comment on above: Performed By: #### L [id number], [id number] ####Bindery Machine Operator: KWESI SANCHEZ ([id number])[facility] [place] ([facility])[address] Platelet mean volume (Bld) [Entitic vol] 10.3 fL Normal 9.0-12.7 [facility] Comment on above: Performed By: #### L [id number], [id number] ####Bindery Machine Operator: KWESI SANCHEZ ([id number])[facility]US[facility] [place] (SBHLAB)[address] Platelets (Bld) [#/Vol] 209 10*3/uL Normal 140-440 [facility] Comment on above: Performed By: #### L [id number], [id number] ####Bindery Machine Operator: KWESI SANCHEZ ([phone])[facility]USMarc[facility] BLACKBURNDR. DAN [facility]ITALN (SBHLAB)[address] RBC (Bld) [#/Vol] 4.46 10*6/uL Normal 3.80-5.20 [facility] Comment on above: Performed By: #### L [id number], [id number] ####Bindery Machine Operator: KWESI SANCHEZ ([phone])[facility]US[facility] [place] (SBHLAB)[address] [place] [address] WBC (Bld) [#/Vol] 16.1 10*3/uL High 3.6-10.7 [facility] Comment on above: Performed By: #### L [id number], [id number] ####Bindery Machine Operator: KWESI SANCHEZ ([phone])[facility]US[facility] [place] (SBHLAB)[address] [place] [address] COMPLETE URINALYSIS WITH REF BALAJI TO CULTUREon 10-17-2024 BACTERIA (#/HPF) IN URINE Loaded Abnormal Negative [facility] Comment on above: Performed By: #### L [id number] ####Bindery Machine Operator: KWESI SANCHEZ ([phone])[facility]USMarc[facility] [place] (SBHLAB)[address] [place] [address]#### [id number] ####Bindery Machine Operator: KRISTEN DAIGLE ([phone])[facility] (SACLAB)[address] [place] [address] BILIRUBIN, TOTAL PRESENCE IN URINE Negative Normal Negative [facility] Comment on above: Performed By: #### L [id number] ####Bindery Machine Operator: KWESI SANCHEZ ([id number])[facility]USMarc[facility] [place] (SBHLAB)[address] [place] [address]#### [id number] ####Bindery Machine Operator: KRISTEN DAIGLE ([phone])[facility] (SACLAB)[address] [place] [address] Clarity (U) Turbid Abnormal Clear [facility] Comment on above: Performed By: #### L [id number] ####Bindery Machine Operator: KWESI SANCHEZ ([phone])[facility]AMPUSA BARBDR. DAN C. TRIGG MEMORIAL HOSPITALAriel (SBHLAB)[address] [place] [address]#### [id number] ####Bindery Machine Operator: KRISTEN DAIGLE ([phone])[facility] ([facility])[address] [place] [address] Color (U) Yellow Normal Lt. Yellow [facility] Comment on above: Performed By: #### L [id number] ####Bindery Machine Operator: KWESI SANCHEZ ([phone])[facility]US[facility] [place] (SBHLAB)[address] [place] [address]#### [id number] ####Bindery Machine Operator: KRISTEN DAIGLE ([id number])[facility] (SAC[facility])[address] [place] [address] GLUCOSE (MG/DL) IN URINE Normal Normal Normal (<70 ) [facility] Comment on above: Performed By: #### L [id number] ####Bindery Machine Operator: KWESI SANCHEZ ([id number])[facility] (SBHLAB)[address] [place] [address]#### [id number] ####Bindery Machine Operator: KRISTEN DAIGLE ([phone])[facility] ([facility] [place] [address] HEMOGLOBIN PRESENCE IN URINE 1.0 mg/dL Abnormal Negative [facility] Comment on above: Performed By: #### L [id number] ####[employer]inder[employer] Machine Operator: KWESI SANCHEZ ([phone])[facility] ([facility])[address] [place] [address] [place]#### [id number] ####[employer] Machine Operator: KRISTEN DAIGLE ([phone])[facility] ([facility])[address] [place] [address] Ketones Ql (U) Negative Normal Negative [facility] Comment on above: Performed By: #### L [id number] ####[employer] Machine Operator: KWESI SANCHEZ ([phone])[facility] [place] ([facility])[address] [place] [address] [place]#### [id number] ####[employer] Machine Operator: KRISTEN DAIGLE ([phone])[facility] ([facility])[address] [place] [address] LEUKOCYTE ESTERASE PRESENCE IN URINE BY TEST STRIP 500 Simon/uL Abnormal Negative [facility] Comment on above: Performed By: #### L [id number] ####Bindery Machine Operator: KWESI SANCHEZ ([phone])[facility] [place] (SBHLAB)[address]#### [id number] ####Bindery Machine Operator: KRISTEN DAIGLE ([phone])[facility] (SACLAB)[address] [place] [address] MUCUS (#/LPF) IN URINE SEDIMENT Few Normal Negative [facility] Comment on above: Performed By: #### L [id number] ####Bindery Machine Operator: KWESI SANCHEZ ([phone])[facility] [place] (SBHLAB)[address] [place] [address] [place]#### [id number] ####Bindery Machine Operator: KRISTEN DAIGLE ([phone])[facility] (SAC[facility])[address] [place] [address] NITRITE PRESENCE IN URINE Positive Abnormal Negative [facility] Comment on above: Performed By: #### L [id number] ####Bindery Machine Operator: KWESI SANCHEZ ([phone])[facility] [place] (SB[facility]AB)[address]#### [id number] ####Bindery Machine Operator: KRISTEN DAIGLE ([phone])[facility] ([facility]AC[facility])[address] [place] [address] pH (U) 6.5 [pH] Normal 5.0-8.0 [facility] Comment on above: Performed By: #### L [id number] ####Bindery Machine Operator: KWESI SANCHEZ ([phone])[facility] (SBHLAB)[address]#### [id number] ####Bindery Machine Operator: KRISTEN DAIGLE ([phone])[facility] ([facility])[address] [place] [address] Protein (U) [Mass/Vol] 70 mg/dL Abnormal Negative [facility] Comment on above: Performed By: #### L [id number] ####Bindery Machine Operator: KWESI SANCHEZ ([phone])[facility] (SBHLAB)[address]#### [id number] ####Bindery Machine Operator: KRISTEN DAIGLE ([phone])[facility] ([facility])[address] [place] [address] RBC (#/HPF) IN URINE SEDIMENT 51-100 Abnormal 0-2 [facility] Comment on above: Performed By: #### L [id number] ####Bindery Machine Operator: KWESI SANCHEZ ([phone])[facility] (SBHLAB)[address]#### [id number] ####Bindery Machine Operator: KRISTEN DAIGLE ([phone])[facility] [place] [address] Specific gravity (U) [Rel density] 1.022 Normal 1.005-1.030 [facility] Comment on above: Result Comment: LAVON Gong COMMENTS: This specimen has been reflexed to urine culture. Performed By: #### L [id number] ####Bindery Machine Operator: KWESI SANCHEZ ([phone])[facility]USMarc[facility] (SBHLAB)[address] [place] [address] [place]#### [id number] ####Bindery Machine Operator: KRISTEN DAIGLE ([phone])[facility] (S[facility])[address] [place] [address] SQUAMOUS EPITHELIAL CELLS (#/HPF) IN URINE SEDIMENT 3-5 Normal 3-5 [facility] Comment on above: Performed By: #### L [id number] ####Bindery Machine Operator: KWESI SANCHEZ ([phone])[facility] [place] (SBHLAB)[address]#### [id number] ####Bindery Machine Operator: KRISTEN DAIGLE ([phone])[facility] (SAC[facility])[address] [place] [address] UROBILINOGEN (MG/DL) IN URINE 2 mg/dL Abnormal Normal (0-1) [facility] Comment on above: Performed By: #### L [id number] ####Bindery Machine Operator: KWESI SANCHEZ ([phone])[facility]AMPUSMarc[facility]ZA[facility] (SBHLAB)[address] [place] [address]#### [id number] ####Bindery Machine Operator: KRISTEN DAIGLE ([phone])[facility] ([facility])[address] [place] [address] WBC (LEUKOCYTE) (#/HPF) IN URINE SEDIMENT 51-100 Abnormal 0-5 [facility] Comment on above: Performed By: #### L [id number] ####Bindery Machine Operator: KWESI SANCHEZ ([phone])[facility] [place] (SBHLAB)[address] [place] [address] [place]#### [id number] ####Bindery Machine Operator: KRISTEN DAIGLE ([phone])[facility] ([facility])[address] [place] [address] ECG 12-LEADon 10-17-2024 ECG 12-LEAD IMPRESSION: Sinus rhythm Low voltage, precordial leads Nonspecific T abnormalities, lateral leads Electronically Signed On 10-17-2024 14:36:48 EDT by Sulaiman Ricks [facility] ED Nursing Noteon 10-17-2024 ED Nursing [...] her comments do not make sense. Normal [facility] ED Nursing Note Pt incontinent of urine and stool. Pt was cleaned up and placed in gown. New pure wick applied and pt aware of need for urine sample. Normal [facility] ED Provider Noteon ED Provider [...] who have . They report that her correction is concerned for urinary tract infection, as [...] 3-5 Bacteri (more content not included)... Normal [facility] MANUAL DIFFERENTIAL (CELLAVI PELON)on 10-17-2024 BAND NEUTROPHILS TOTAL PER COUNTED LEUKOCYTES BY MANUAL COUNT [facility] Comment on above: Performed By: #### L [id number], [id number] ####Bindery Machine Operator: KWESI SANCHEZ ([phone])[facility] ([address] BASOPHILS TOTAL PER COUNTED LEUKOCYTES BY MANUAL COUNT [facility] Comment on above: Performed By: #### L [id number], [id number] ####Bindery Machine Operator: KWESI SANCHEZ ([phone])[facility] ([facility])[address] [place] [address] BLASTS TOTAL PER COUNTED LEUKOCYTES BY MANUAL COUNT [facility] Comment on above: Performed By: #### L [id number], [id number] ####Bindery Machine Operator: KWESI SANCHEZ ([phone])[facility] ([facility])[address] DACROCYTES PRESENCE IN BLOOD BY LIGHT MICROSCOPY Slight Abnormal (none) [facility] Comment on above: Performed By: #### L [id number], [id number] ####Bindery Machine Operator: KWESI SANCHEZ ([phone])[facility] [place] (SBHLAB)[address] EOSINOPHILS TOTAL PER COUNTED LEUKOCYTES BY MANUAL COUNT Normal [facility] Comment on above: Performed By: #### L [id number], [id number] ####Bindery Machine Operator: KWESI SANCHEZ ([phone])[facility] [place] (SBHLAB)[address] [place] [address] [place] LYMPHOCYTES (10*3/UL) IN BLOOD-CELLAVISION 0.6 10*3/uL Low 1.0-4.3 [facility] Comment on above: Performed By: #### L [id number], [id number] ####Bindery Machine Operator: KWESI SANCHEZ ([phone])[facility] [place] (SBHLAB)[address] [place] [address] [place] LYMPHOCYTES TOTAL PER COUNTED LEUKOCYTES BY MANUAL COUNT 4 Normal [facility] Comment on above: Performed By: #### L [id number], [id number] ####Bindery Machine Operator: KWESI SANCHEZ ([phone])[facility] [place] (SBHLAB)[address] [place] [address] [place] LYMPHOCYTES/100 LEUKOCYTES IN BLOOD-CELLAVISION 4 % Low 15-45 [facility] Comment on above: Performed By: #### L [id number], [id number] ####Bindery Machine Operator: KWESI SANCHEZ ([phone])[facility] [place] (SBHLAB)[address] [place] [address] [place] METAMYELOCYTES TOTAL PER COUNTED LEUKOCYTES BY MANUAL COUNT Normal [facility] Comment on above: Performed By: #### L [id number], [id number] ####Bindery Machine Operator: KWESI SANCHEZ ([phone])[facility] [place] (SBHLAB)[address] [place] [address] [place] MONOCYTES (10*3/UL) IN BLOOD-CELLAVISION 1.8 10*3/uL High 0.0-0.9 [facility] Comment on above: Performed By: #### L [id number], [id number] ####Bindery Machine Operator: KWESI SANCHEZ ([phone])[facility] [place] (SBHLAB)[address] [place] [address] [place] MONOCYTES TOTAL PER COUNTED LEUKOCYTES BY MANUAL COUNT 11 Normal [facility] Comment on above: Performed By: #### L [id number], [id number] ####Bindery Machine Operator: KWESI GOODWINCER ([phone])[facility] [place] (SB[facility]AB)[address] [place] [address] [place] MONOCYTES/100 LEUKOCYTES IN BLOOD-CHARLES 11 % Normal -13 [facility] Comment on above: Performed By: #### L [id number], [id number] ####Bindery Machine Operator: KWESI SANCHEZ ([phone])[facility] [place] (SB[facility]AB)[address] MYELOCYTES COUNTED BY MANUAL COUNT Normal [facility] Comment on above: Performed By: #### L [id number], [id number] ####Bindery Machine Operator: KWESI SANCHEZ ([phone])[facility] [place] (SB[facility]AB)[address] NEUTROPHILS TOTAL PER COUNTED LEUKOCYTES BY MANUAL COUNT 88 Normal [facility] Comment on above: Performed By: #### L [id number], [id number] ####Bindery Machine Operator: KWESI SANCHEZ ([phone])[facility] [place] (SBHLAB)[address] [place] [address] [place] POIKILOCYTOSIS (PRESENCE) IN BLOOD BY LIGHT MICROSCOPY Slight Abnormal (none) [facility] Comment on above: Performed By: #### L [id number], [id number] ####Bindery Machine Operator: KWESI SANCHEZ ([phone])[facility] [place] (SBHLAB)[address] [place] [address] [place] POLYCHROMASIA IN BLOOD BY LIGHT MICROSCOPY Slight Abnormal (none) [facility] Comment on above: Performed By: #### L [id number], [id number] ####Bindery Machine Operator: KWESI SANCHEZ ([phone])[facility] [place] (SBHLAB)[address] [place] [address] [place] PROMYELOCYTES TOTAL PER COUNTED LEUKOCYTES BY MANUAL COUNT Normal [facility] Comment on above: Performed By: #### L [id number], [id number] ####Bindery Machine Operator: KWESI SANCHEZ ([phone])[facility] [place] (SBHLAB)[address] [place] [address] [place] RBC MORPHOLOGY IN BLOOD abnormal Normal S [facility] Comment on above: Performed By: #### L [id number], [id number] ####Bindery Machine Operator: KWESI SANCHEZ ([phone])[facility] [place] (SB[facility]AB)[address] [place] [address] [place] SEGMENTED NEUTROPHILS (10*3/UL) IN BLOOD-CELLAVISION 13.7 10*3/uL High 1.8-7.5 [facility] Comment on above: Performed By: #### L [id number], [id number] ####Bindery Machine Operator: KWESI SANCHEZ ([phone])[facility] [place] (SB[facility]AB)[address] [place] [address] [place] SEGMENTED NEUTROPHILS/100 LEUKOCYTES-CE 85 % High 38-82 [facility] Comment on above: Performed By: #### L [id number], [id number] ####Bindery Machine Operator: KWESI SANCHEZ ([phone])[facility] [place] (SB[facility])[address] [place] [address] [place] STOMATOCYTES IN BLOOD BY LIGHT MICROSCOPY Slight Abnormal (none) [facility] Comment on above: Performed By: #### L [id number], [id number] ####Bindery Machine Operator: KWESI SANCHEZ ([phone])[facility] [place] (SBHLAB)[address] [place] [address] [place] UNCLASSIFIED CELLS TOTAL PER COUNTED LEUKOCYTES BY MANUAL COUNT Normal [facility] Comment on above: Performed By: #### L [id number], [id number] ####Bindery Machine Operator: KWESI SANCHEZ ([phone])[facility] ([facility])[address] [place] [address] VARIANT LYMPHOCYTES TOTAL PER COUNTED LEUKOCYTES BY MANUAL COUNT [facility] Comment on above: Performed By: #### L [id number], [id number] ####Bindery Machine Operator: KWESI GOODWINCER ([phone])[facility] ([facility])[address] [place] [address] SARS-COV-2, FLU A/B, AND RSV COMBOon 10-17-2024 [...] In compliance with this authorization, please visit www.fda.gov/media/615 435/download or www.fda.gov/media/522 436/download to access the applicable information sheets. [facility] Comment on above: Performed By: #### L [id number] #### Bindery Machine Operator: KWESI SANCHEZ ([phone]) [facility] ([facility]) [address] [place] [address] URINE CULTUREon 10-17-2024 Bacteria identified Cx Nom [...] Non-susceptible NO = No Interpretation ] Normal [facility] Comment on above: Performed By: #### L [id number] ####Bindery Machine Operator: KWESI SANCHEZ ([phone])[facility] (SBHLAB)[address] [place] [address]#### [id number] ####Bindery Machine Operator: KRISTEN DAIGLE ([phone])[facility] (SACLAB)[address] [place] [address] Anion gap in Serum or Plasma Ordered By: Royer Reagan on 08-10-2024 Anion gap [Moles/Vol] 13 mmol/L 5-15 [facility] BUN/creatinine ratioOrdered By: Royer Reagan on 08-10-2024 Urea nitrogen/Creatinine [Mass ratio] 24.2 mg/mg High 10-20 [facility] Bilirubin, totalOrdered By: Royer Reagan on 08-10-2024 Bilirubin [Mass/Vol] 0.39 mg/dL 0.00-1.30 [facility] Carbon dioxide, total [Moles /volume] in Central venous bloodOrdered By: Royer Reagan on 08-10-2024 CO2 [Moles/Vol] 22.7 mmol/L 21.0-32.0 [facility] Chloride assayOrdered By: Adam Reagan on 08-10-2024 Chloride [Moles/Vol] 105 mmol/L 98-108 [facility] Erythrocyte distribution wid th (RBC) [Ratio]Ordered By: Royer Reagan on 08-10-2024 Erythrocyte distribution width (RBC) [Entitic vol] 53.2 fL High 35.1-43.9 [facility] Erythrocyte distribution wid th ratioOrdered By: Royer Reagan on 08-10-2024 Erythrocyte distribution width (RBC) [Ratio] 14.4 % 11.6-14.6 [facility] GFR/1.73 sq M.predicted darnell g non-blacks MDRD (S/P/Bld) [Vol rate/Area]Ordered By: Royer Reagan on 08-10-2024 Estimated GFR (MDRD) Non-Af Amer 69 >60 [facility] Comment on above: mL/min/1.73m2 CKD-EP I Creatinine Equation (2020) Hematocrit Auto (Bld) [Volum e fraction]Ordered By: Royer Reagan on 08-10-2024 Hematocrit (Bld) [Volume fraction] 43.0 % 37-47 [facility] Hemoglobin measurementOrdere d By: Royer Reagan on 08-10-2024 Hemoglobin (Bld) [Mass/Vol] 13.9 g/dL 12.0-15.0 [facility] Laboratory - Chemistry and C hemistry - challengeOrdered By: Royer Reagan on 08-10-2024 AST [Catalytic activity/Vol] 23 U/L <32 [facility] MCV (mean corpuscular volume ) determinationOrdered By: Royer Reagan on 08-10-2024 MCV (RBC) [Entitic vol] 99.8 fL High 81-99 [facility] Mean corpuscular hemoglobin (MCH) determinationOrdered By: Royer Reagan on 08-10-2024 MCH (RBC) [Entitic mass] 32.3 pg High 27.0-32.0 [facility] Mean corpuscular hemoglobin concentration (MCHC) determinationOrdered By: Royer Reagan on 08-10-2024 MCHC (RBC) [Mass/Vol] 32.3 g/dL 32-36 [facility] Mean platelet volume determi nationOrdered By: Royer Reagan on 08-10-2024 Platelet mean volume (Bld) [Entitic vol] 9.9 fL 6.2-12.0 [facility] Platelet countOrdered By: Adam Reagan on 08-10-2024 Platelets (Bld) [#/Vol] 189 10*3/uL 150-450 [facility] Potassium (Unsp spec) [Mass/ Vol]Ordered By: Royer Reagan on 08-10-2024 Potassium [Moles/Vol] 4.2 mmol/L 3.3-5.1 [facility] RBC Auto (Bld) [#/Vol]Ordere d By: Royer Reagan on 08-10-2024 RBC (Bld) [#/Vol] 4.31 10*6/uL 4.2-5.4 [facility] Serum creatinine measurement (mass/volume)Ordered By: Royer Reagan on 08-10-2024 Creatinine [Mass/Vol] 0.91 mg/dL 0.70-1.20 [facility] Serum globulin measurementOr dered By: Royer Reagan on 08-10-2024 Globulin (S) [Mass/Vol] 3.3 g/dL 2.2-4.2 [facility] Serum glucose measurement (m ass/volume)Ordered By: Royer Reagan on 08-10-2024 Glucose [Mass/Vol] 118 mg/dL High 70-99 [facility] Serum or plasma alanine leung otransferase (ALT) measurementOrdered By: Royer Reagan on 08-10-2024 ALT [Catalytic activity/Vol] 15 U/L <35 [facility] Serum or plasma albumin tammie urement (mass/volume)Ordered By: Royer Reagan on 08-10-2024 Albumin [Mass/Vol] 3.5 g/dL 3.4-4.8 [facility] Serum or plasma albumin/glob ulin mass ratioOrdered By: Royer Reagan on 08-10-2024 Albumin/Globulin [Mass ratio] 1.1 {ratio} 0.9-2.4 [facility] Serum or plasma alkaline rosey sphatase measurementOrdered By: Royer Reagan on 08-10-2024 ALP [Catalytic activity/Vol] 72 U/L 35-104 [facility] Serum or plasma calcium tammie urement (mass/volume)Ordered By: Royer Reagan on 08-10-2024 Calcium [Mass/Vol] 8.9 mg/dL 7.6-11.0 [facility] Serum or plasma urea nitroge n measurement (mass/volume)Ordered By: Royer Reagan on 08-10-2024 Urea nitrogen [Mass/Vol] 22 mg/dL High 4-19 [facility] Sodium levelOrdered By: Ismael Reagan on 08-10-2024 Sodium [Moles/Vol] 140 mmol/L 133-145 [facility] Total proteinOrdered By: Ori Reagan on 08-10-2024 Protein [Mass/Vol] 6.8 g/dL 5.9-8.4 [facility] White blood cell (WBC) count Ordered By: Royer Reagan on 08-10-2024 WBC (Bld) [#/Vol] 6.2 10*3/uL 4.4-11.0 [facility] CNPNon 07-18-2024 CNPN Telephone (FPWADS) CHARLIE NGUYEN ([id number]) 1955 F [facility] Date Time Provider Department 07/18/24 MORENO OATES During your visit today, we recorded the following information about you: Fadumo Rahman LPN 07/18/2024 10:26 AM Signed Received 07/18/2024 from [facility]. Placed in provider's inbox for review. Route to [place] for scanning. Allergies As of Date: 07/18/2024 [...] Reason for Visit: Received Outside Medical Records [[id number]] Cmt: [facility] ([facility]) Labs 07/12/2024 Order(s):[facility] (EXTERNAL) [[id number]] Order #: [id number] Prescriptions as of 07/18/2024 - diazePAM (VALIUM) [...] total knee (more content not included)... Normal [facility] Albumin to globulin ratioon 07-12-2024 Albumin/Globulin [Mass ratio] 0.7 {ratio} Low 0.9-2.4 [facility] Bilirubin, totalOrdered By: Ender Oates on 07-12-2024 Bilirubin [Mass/Vol] 0.60 mg/dL 0.20-1.00 [facility] Comment on above: For patients on eltr ombopag therapy, use of Dimension [place] TBIL is not recommended. Blood urea nitrogen (BUN)/cr eatinine ratioOrdered By: Ender Oates on 07-12-2024 Urea nitrogen/Creatinine [Mass ratio] 30.7 mg/mg High 10-20 [facility] CMP (EXTERNAL)on 07-12-2024 Alk Phos Total 80 U/L 45 - 117 U/L [facility] Bili Total 0.6 mg/dL 0.2 - 1 mg/dL [facility] CO2 [Moles/Vol] 27 mmol/L [facility] GFR 78 mL/MIN [facility] GFR AFR AMER 94 mL/MIN [facility] Globulin 4.6 [facility] Interpretation and review of laboratory results Abnormal [facility] Carbon dioxide measurementOr dered By: Ender Oates on 07-12-2024 CO2 [Moles/Vol] 27.0 mmol/L 21.0-32.0 [facility] Chloride measurementon 07-12 Chloride [Moles/Vol] 107 mmol/L 98-107 [facility] Erythrocyte distribution wid th (RBC) [Ratio]Ordered By: Ender Oates on 07-12-2024 Erythrocyte distribution width (RBC) [Entitic vol] 54.0 fL High 35.1-43.9 [facility] Erythrocyte distribution wid th ratioOrdered By: Ender Oates on 07-12-2024 Erythrocyte distribution width (RBC) [Ratio] 14.4 % 11.6-14.6 [facility] Estimated glomerular filtrat ion rate (GFR) AmericanOrdered By: Ender Oates on 07-12-2024 Estimated GFR (MDRD) Amer 94 mL/min >60 [facility] Comment on above: GFR Calc Glomerular filtration rate ( GFR) estimationOrdered By: Ender Oates on 07-12-2024 Estimated GFR (MDRD) Non-Af Amer 78 mL/min >60 [facility] Comment on above: Non- GFR Calc Glucose measurementon 2024 Glucose [Mass/Vol] 97 mg/dL 74-106 [facility] Hematocrit Auto (Bld) [Volum e fraction]Ordered By: Ender Oates on 07-12-2024 Hematocrit (Bld) [Volume fraction] 47.4 % High 37-47 [facility] Hemoglobin measurementOrdere d By: Ender Oates on 07-12-2024 Hemoglobin (Bld) [Mass/Vol] 14.9 g/dL 12.0-15.0 [facility] Laboratory - Chemistry and C hemistry - challengeon 07-12-2024 AST [Catalytic activity/Vol] 23 U/L 15-37 [facility] Comment on above: Slight Hemolysis, Re sult may be falsely increased. MCV (mean corpuscular volume ) determinationOrdered By: Ender Oates on 07-12-2024 MCV (RBC) [Entitic vol] 100.4 fL High 81-99 [facility] Mean corpuscular hemoglobin (MCH) determinationOrdered By: Ender Oates on 07-12-2024 MCH (RBC) [Entitic mass] 31.6 pg 27.0-32.0 [facility] Mean corpuscular hemoglobin concentration (MCHC) determinationOrdered By: Ender Oates on 07-12-2024 MCHC (RBC) [Mass/Vol] 31.4 g/dL Low 32-36 [facility] Mean platelet volume determi nationOrdered By: Ender Oates on 07-12-2024 Platelet mean volume (Bld) [Entitic vol] 10.4 fL 6.2-12.0 [facility] Platelet countOrdered By: Donnie Oates on 07-12-2024 Platelets (Bld) [#/Vol] 180 10*3/uL 150-450 [facility] Potassium measurementon 07-02 Potassium [Moles/Vol] 4.4 mmol/L 3.5-5.1 [facility] Comment on above: Slight Hemolysis, Re sult may be falsely increased. RBC Auto (Bld) [#/Vol]Ordere d By: Ender Oates on 07-12-2024 RBC (Bld) [#/Vol] 4.72 10*6/uL 4.2-5.4 [facility] Serum anion gap measurementO rdered By: Ender Oates on 07-12-2024 Anion gap [Moles/Vol] 4 mmol/L Low 5-15 [facility] Serum globulin measurementOr dered By: Ender Oates on 07-12-2024 Globulin (S) [Mass/Vol] 4.6 g/dL High 2.2-4.2 [facility] Serum or plasma alanine leung otransferase (ALT) measurementon 07-12-2024 ALT [Catalytic activity/Vol] 20 U/L 13-56 [facility] Serum or plasma albumin tammie urement (mass/volume)on 07-12-2024 Albumin [Mass/Vol] 3.2 g/dL 3.2-5.0 [facility] Serum or plasma alkaline rosey sphatase measurementOrdered By: Ender Oates on 07-12-2024 ALP [Catalytic activity/Vol] 80 U/L 45-117 [facility] Serum or plasma calcium tammie urement (mass/volume)on 07-12-2024 Calcium [Mass/Vol] 8.9 mg/dL 8.5-10.1 [facility] Serum or plasma creatinine m easurement (mass/volume)on 07-12-2024 Creatinine [Mass/Vol] 0.78 mg/dL 0.55-1.02 [facility] Comment on above: The validity of the calculated GFR & GFRAA in patients over 70 years has not been determined. Clinical correlation is essential. Serum or plasma urea nitroge n measurement (mass/volume)on 07-12-2024 Urea nitrogen [Mass/Vol] 24 mg/dL High 7-18 [facility] Sodium levelon 07-12-2024 Sodium [Moles/Vol] 138 mmol/L 136-145 [facility] Total proteinon 07-12-2024 Protein [Mass/Vol] 7.8 g/dL 6.4-8.2 [facility] White blood cell (WBC) count Ordered By: Ender Oates on 07-12-2024 WBC (Bld) [#/Vol] 6.2 10*3/uL 4.4-11.0 [facility] Albumin to globulin ratioOrd ered By: Royer Reagan on 07-04-2024 Albumin/Globulin [Mass ratio] 0.7 {ratio} Low 0.9-2.4 [facility] Bilirubin, totalOrdered By: Royer Reagan on 07-04-2024 Bilirubin [Mass/Vol] 0.40 mg/dL 0.20-1.00 [facility] Comment on above: For patients on eltr ombopag therapy, use of Dimension [place] TBIL is not recommended. Blood urea nitrogen (BUN)/cr eatinine ratioOrdered By: Royer Reagan on 07-04-2024 Urea nitrogen/Creatinine [Mass ratio] 22.4 mg/mg High 10-20 [facility] Carbon dioxide measurementOr dered By: Royer Reagan on 07-04-2024 CO2 [Moles/Vol] 27.0 mmol/L 21.0-32.0 [facility] Chloride measurementOrdered By: Royer Reagan on 07-04-2024 Chloride [Moles/Vol] 102 mmol/L 98-107 [facility] Erythrocyte distribution wid th (RBC) [Ratio]Ordered By: Royer Reagan on 07-04-2024 Erythrocyte distribution width (RBC) [Entitic vol] 55.4 fL High 35.1-43.9 [facility] Erythrocyte distribution wid th ratioOrdered By: Royer Reagan on 07-04-2024 Erythrocyte distribution width (RBC) [Ratio] 14.6 % 11.6-14.6 [facility] Estimated glomerular filtrat ion rate (GFR) AmericanOrdered By: Royer Reagan on 07-04-2024 Estimated GFR (MDRD) Amer 76 mL/min >60 [facility] Comment on above: GFR Calc Glomerular filtration rate ( GFR) estimationOrdered By: Royer Reagan on 07-04-2024 Estimated GFR (MDRD) Non-Af Amer 63 mL/min >60 [facility] Comment on above: Non- GFR Calc Glucose measurementOrdered B y: Royer Reagan on 07-04-2024 Glucose [Mass/Vol] 143 mg/dL High 74-106 [facility] Comment on above: Fasting Glucose resu lt greater than or equal to 126 mg/dL suggests DIABETES MELLITUS per A.D.A. criteria. Hematocrit Auto (Bld) [Volum e fraction]Ordered By: Royer Reagan on 07-04-2024 Hematocrit (Bld) [Volume fraction] 47.0 % 37-47 [facility] Hemoglobin measurementOrdere d By: Royer Reagan on 07-04-2024 Hemoglobin (Bld) [Mass/Vol] 14.4 g/dL 12.0-15.0 [facility] Laboratory - Chemistry and C hemistry - challengeOrdered By: Royer Reagan on 07-04-2024 AST [Catalytic activity/Vol] 20 U/L 15-37 [facility] MCV (mean corpuscular volume ) determinationOrdered By: Royer Reagan on 07-04-2024 MCV (RBC) [Entitic vol] 102.8 fL High 81-99 [facility] Mean corpuscular hemoglobin (MCH) determinationOrdered By: Royer Reagan on 07-04-2024 MCH (RBC) [Entitic mass] 31.5 pg 27.0-32.0 [facility] Mean corpuscular hemoglobin concentration (MCHC) determinationOrdered By: Royer Reagan on 07-04-2024 MCHC (RBC) [Mass/Vol] 30.6 g/dL Low 32-36 [facility] Mean platelet volume determi nationOrdered By: Royer Reagan on 07-04-2024 Platelet mean volume (Bld) [Entitic vol] 10.2 fL 6.2-12.0 [facility] Platelet countOrdered By: Adam Reagan on 07-04-2024 Platelets (Bld) [#/Vol] 221 10*3/uL 150-450 [facility] Potassium measurementOrdered By: Royer Reagan on 07-04-2024 Potassium [Moles/Vol] 4.2 mmol/L 3.5-5.1 [facility] RBC Auto (Bld) [#/Vol]Ordere d By: Royer Reagan on 07-04-2024 RBC (Bld) [#/Vol] 4.57 10*6/uL 4.2-5.4 [facility] Serum anion gap measurementO rdered By: Royer Reagan on 07-04-2024 Anion gap [Moles/Vol] 7 mmol/L 5-15 [facility] Serum globulin measurementOr dered By: Royer Reagan on 07-04-2024 Globulin (S) [Mass/Vol] 4.5 g/dL High 2.2-4.2 [facility] Serum or plasma alanine leung otransferase (ALT) measurementOrdered By: Royer Reagan on 07-04-2024 ALT [Catalytic activity/Vol] 23 U/L 13-56 [facility] Serum or plasma albumin tammie urement (mass/volume)Ordered By: Royer Reagan on 07-04-2024 Albumin [Mass/Vol] 3.3 g/dL 3.2-5.0 [facility] Serum or plasma alkaline rosey sphatase measurementOrdered By: Royer Reagan on 07-04-2024 ALP [Catalytic activity/Vol] 89 U/L 45-117 [facility] Serum or plasma calcium tammie urement (mass/volume)Ordered By: Royer Reagan on 07-04-2024 Calcium [Mass/Vol] 8.6 mg/dL 8.5-10.1 [facility] Serum or plasma creatinine m easurement [...] Urea nitrogen [Mass/Vol] 21 mg/dL High 7-18 [facility] Sodium levelOrdered By: Ismael Reagan on 07-04-2024 Sodium [Moles/Vol] 136 mmol/L 136-145 [facility] Total proteinOrdered By: Ori Reagan on 07-04-2024 Protein [Mass/Vol] 7.8 g/dL 6.4-8.2 [facility] White blood cell (WBC) count Ordered By: Royer Reagan on 07-04-2024 WBC (Bld) [#/Vol] 6.8 10*3/uL 4.4-11.0 [facility] Albumin to globulin ratioOrd ered By: Ender Oates on 05-11-2024 Albumin/Globulin [Mass ratio] 0.8 {ratio} Low 0.9-2.4 [facility] Bilirubin, totalOrdered By: Ender Oates on 05-11-2024 Bilirubin [Mass/Vol] 0.40 mg/dL 0.20-1.00 [facility] Comment on above: For patients on eltr ombopag therapy, use of Dimension Bradshaw TBIL is not recommended. Blood urea nitrogen (BUN)/cr eatinine ratioOrdered By: Ender Oates on 05-11-2024 Urea nitrogen/Creatinine [Mass ratio] 32.1 mg/mg High 10-20 [facility] Carbon dioxide measurementOr dered By: Ender Oates on 05-11-2024 CO2 [Moles/Vol] 29.0 mmol/L 21.0-32.0 [facility] Chloride measurementOrdered By: Ender Oates on 05-11-2024 Chloride [Moles/Vol] 108 mmol/L High 98-107 [facility] Erythrocyte distribution wid th (RBC) [Ratio]Ordered By: Ender Oates on 05-11-2024 Erythrocyte distribution width (RBC) [Entitic vol] 59.7 fL High 35.1-43.9 [facility] Erythrocyte distribution wid th ratioOrdered By: Ender Oates on 05-11-2024 Erythrocyte distribution width (RBC) [Ratio] 15.8 % High 11.6-14.6 [facility] Estimated glomerular filtrat ion rate (GFR) AmericanOrdered By: Ender Oates on 05-11-2024 Estimated GFR (MDRD) Amer 95 mL/min >60 [facility] Comment on above: GFR Calc Glomerular filtration rate ( GFR) estimationOrdered By: Ender Oates on 05-11-2024 Estimated GFR (MDRD) Non-Af Amer 78 mL/min >60 [facility] Comment on above: Non- GFR Calc Glucose measurementOrdered B y: Ender Oates on 05-11-2024 Glucose [Mass/Vol] 109 mg/dL High 74-106 [facility] Comment on above: Fasting Glucose resu lt from 100 to 125 mg/dL suggests IMPAIRED HOMEOSTASIS per A.D.A. criteria. Hematocrit Auto (Bld) [Volum e fraction]Ordered By: Ender Oates on 05-11-2024 Hematocrit (Bld) [Volume fraction] 43.3 % 37-47 [facility] Hemoglobin measurementOrdere d By: Ender Oates on 05-11-2024 Hemoglobin (Bld) [Mass/Vol] 13.4 g/dL 12.0-15.0 [facility] Laboratory - Chemistry and C hemistry - challengeOrdered By: Ender Oates on 05-11-2024 AST [Catalytic activity/Vol] 18 U/L 15-37 [facility] Comment on above: Moderate Hemolysis, Result may be falsely increased. MCV (mean corpuscular volume ) determinationOrdered By: Ender Oates on 05-11-2024 MCV (RBC) [Entitic vol] 102.6 fL High 81-99 [facility] Mean corpuscular hemoglobin (MCH) determinationOrdered By: Ender Oates on 05-11-2024 MCH (RBC) [Entitic mass] 31.8 pg 27.0-32.0 [facility] Mean corpuscular hemoglobin concentration (MCHC) determinationOrdered By: Ender Oates on 05-11-2024 MCHC (RBC) [Mass/Vol] 30.9 g/dL Low 32-36 [facility] Mean platelet volume determi nationOrdered By: Ender Oates on 05-11-2024 Platelet mean volume (Bld) [Entitic vol] 10.0 fL 6.2-12.0 [facility] Platelet countOrdered By: Donnie Oates on 05-11-2024 Platelets (Bld) [#/Vol] 174 10*3/uL 150-450 [facility] Potassium measurementOrdered By: Ender Oates on 05-11-2024 Potassium [Moles/Vol] 4.6 mmol/L 3.5-5.1 [facility] Comment on above: Moderate Hemolysis, Result may be falsely increased. RBC Auto (Bld) [#/Vol]Ordere d By: Ender Oates on 05-11-2024 RBC (Bld) [#/Vol] 4.22 10*6/uL 4.2-5.4 [facility] Serum anion gap measurementO rdered By: Ender Oates on 05-11-2024 Anion gap [Moles/Vol] 2 mmol/L Low 5-15 [facility] Serum globulin measurementOr dered By: Ender Oates on 05-11-2024 Globulin (S) [Mass/Vol] 3.7 g/dL 2.2-4.2 [facility] Serum or plasma alanine leung otransferase (ALT) measurementOrdered By: Ender Oates on 05-11-2024 ALT [Catalytic activity/Vol] 20 U/L 13-56 [facility] Serum or plasma albumin tammie urement (mass/volume)Ordered By: Ender Oates on 05-11-2024 Albumin [Mass/Vol] 2.8 g/dL Low 3.2-5.0 [facility] Serum or plasma alkaline rosey sphatase measurementOrdered By: Ender Oates on 05-11-2024 ALP [Catalytic activity/Vol] 84 U/L 45-117 [facility] Serum or plasma calcium tammie urement (mass/volume)Ordered By: Ender Oates on 05-11-2024 Calcium [Mass/Vol] 8.9 mg/dL 8.5-10.1 [facility] Serum or plasma creatinine m easurement [...] Urea nitrogen [Mass/Vol] 25 mg/dL High 7-18 [facility] Sodium levelOrdered By: Jimbo Oates on 05-11-2024 Sodium [Moles/Vol] 139 mmol/L 136-145 [facility] Total proteinOrdered By: Ronaldo Oates on 05-11-2024 Protein [Mass/Vol] 6.5 g/dL 6.4-8.2 [facility] White blood cell (WBC) count Ordered By: Ender Oates on 05-11-2024 WBC (Bld) [#/Vol] 6.0 10*3/uL 4.4-11.0 [facility] CNPNon 04-12-2024 CNPN Telephone (FPWADOREEN) CHARLIE NGUYEN ([id number]) 1955 F T Date Time Provider Department 04/12/24 MORENO OATES During your visit today, we recorded the following information about you: Fadumo Rahman LPN 04/12/2024 10:33 AM Signed Received from [facility]. Placed in provider's inbox for review. Route to [place] for scanning. Allergies As of Date: 04/12/2024 [...] Reason for Visit: Received Outside Medical Records [[id number]] Cmt: [facility] Labs 04/11/2024 Order(s):CBC [[id number]] Order #: [id number] CMP (EXTERNAL) [[id number]] Order #: [id number] Prescriptions as of 04/12/2024 - oxyCODONE-acetaminoph en [...] encounter *04/20/201704/02 (more content not included)... [facility] CBCon 04-11-2024 Erythrocyte distribution width (RBC) [Ratio] 15.9 % Abnormal 11.7 - 15.0 % [facility] Hematocrit (Bld) [Volume fraction] 47.1 % Abnormal 33 - 42 % [facility] Hemoglobin (Bld) [Mass/Vol] 15.2 g/dL 14 - 16.5 g/dL [facility] MCH (RBC) [Entitic mass] 32.1 pG 27 - 34 pG [facility] MCHC 32.3 % 32 - 36 % [facility] MCV (RBC) [Entitic vol] 99.4 fL 80 - 100 fL [facility] Platelet mean volume (Bld) [Entitic vol] 10.3 fL 7.4 - 10.4 fL [facility] Platelets (Bld) [#/Vol] 191 10*3/uL [facility] RBC (Bld) [#/Vol] 4.74 10*6/uL [facility] RDW-SD 58.9 [facility] WBC (Bld) [#/Vol] 7.2 10*3/uL [facility] CMP (EXTERNAL)on 04-11-2024 Albumin [Mass/Vol] 3.1 g/dL Abnormal [facility] Alk Phos Total 81 U/L 45 - 117 U/L [facility] ALT [Catalytic activity/Vol] 19 U/L 12 - 78 U/L [facility] AST [Catalytic activity/Vol] 22 U/L 8 - 37 U/L [facility] Bili Total 0.50 mg/dL 0.2 - 1 mg/dL [facility] Calcium [Mass/Vol] 8.4 mg/dL Abnormal 8.5 - 10. 1 mg/dL [facility] Chloride [Moles/Vol] 109 mmol/L Abnormal [facility] CO2 [Moles/Vol] 24 mmol/L [facility] Creatinine [Mass/Vol] 0.83 mg/dL [facility] GFR 73 mL/MIN [facility] GFR AFR AMER 88 mL/MIN [facility] Glucose [Mass/Vol] 112 mg/dL Abnormal [facility] Potassium [Moles/Vol] 4.2 mmol/L 3.5 - 5.1 mmol/L [facility] Protein [Mass/Vol] 7.4 g/dL [facility] Sodium [Moles/Vol] 139 mmol/L 136 - 145 mmol/L [facility] Urea nitrogen [Mass/Vol] 22 mg/dL Abnormal [facility] No Panel Informationon 04-11 Interpretation and review of laboratory results Abnormal [facility] CBCon 11-09-2023 Erythrocyte distribution width (RBC) [Ratio] 14.4 % 11.7 - 15.0 % [facility] Hematocrit (Bld) [Volume fraction] 49.8 % Abnormal 35 - 47 % [facility] Hemoglobin (Bld) [Mass/Vol] 15.4 g/dL [facility] MCH (RBC) [Entitic mass] 32.3 pG 27 - 34 pG [facility] MCHC (RBC) [Mass/Vol] 30.9 g/dL Abnormal 33 - 37 g/dL [facility] MCV (RBC) [Entitic vol] 104.4 fL Abnormal 80 - 100 fL [facility] Platelet mean volume (Bld) [Entitic vol] 10.4 fL 7.4 - 10.4 fL [facility] Platelets (Bld) [#/Vol] 222 10*3/uL [facility] RBC (Bld) [#/Vol] 4.77 10*6/uL [facility] RDW-SD 55.9 [facility] WBC (Bld) [#/Vol] 6.9 10*3/uL [facility] CMP (EXTERNAL)Ordered By: Angeline Rahman on 11-09-2023 Albumin [Mass/Vol] 3.3 g/dL [facility] Alk Phos Total 102 U/L 45 - 117 U/L [facility] ALT [Catalytic activity/Vol] 19 U/L 12 - 78 U/L [facility] AST [Catalytic activity/Vol] 24 U/L 8 - 37 U/L [facility] Bili Total 0.50 mg/dL 0.2 - 1 mg/dL [facility] Calcium [Mass/Vol] 9 mg/dL 8.5 - 10. 1 mg/dL [facility] Chloride [Moles/Vol] 106 mmol/L [facility] CO2 [Moles/Vol] 27 mmol/L [facility] Creatinine [Mass/Vol] 0.87 mg/dL [facility] GFR 69 mL/MIN [facility] GFR AFR AMER 83 mL/MIN [facility] Glucose [Mass/Vol] 119 mg/dL Abnormal [facility] Potassium [Moles/Vol] 4.4 mmol/L 3.5 - 5.1 mmol/L [facility] Protein [Mass/Vol] 7.8 g/dL [facility] Urea nitrogen [Mass/Vol] 19 mg/dL Abnormal [facility] No Panel InformationOrdered By: Fadumo Rahman on 11-09-2023 Interpretation and review of laboratory results Abnormal [facility] Basophil percentageOrdered B y: Ender Oates on 08-10-2023 Bilirubin [Mass/Vol] 0.40 mg/dL 0.20-1.00 [facility] Comment on above: For patients on eltr ombopag therapy, use of Dimension Bradshaw TBIL is not recommended. Chloride [Moles/Vol] 104 mmol/L 98-107 [facility] Cholesterol [Mass/Vol] 174 mg/dL <200 [facility] Comment on above: <200 mg/dL Desirable 200-240 mg/dL Borderline >240 mg/dL High Risk Glucose [Mass/Vol] 102 mg/dL 74-106 [facility] Comment on above: Fasting Glucose resu lt from 100 to 125 mg/dL suggests IMPAIRED HOMEOSTASIS per A.D.A. criteria. Hemoglobin (Bld) [Mass/Vol] 14.9 g/dL 12.0-15.0 [facility] Potassium [Moles/Vol] 4.2 mmol/L 3.5-5.1 [facility] Protein [Mass/Vol] 7.5 g/dL 6.4-8.2 [facility] Sodium [Moles/Vol] 139 mmol/L 136-145 [facility] Triglyceride [Mass/Vol] 265 mg/dL <199 [facility] Comment on above: The drugs N-Acetylcy steine and Metamizole may falsely depress this assay.Serum Triglycerides Reference Interval Normal <150 mg/dL Borderline high 150 - 199 mg/dL High 200 - 499 mg/dL Very High > or = 500 mg/dL WBC (Bld) [#/Vol] 7.7 10*3/uL 4.4-11.0 [facility] Determination of erythrocyte mean corpuscular volume (MCV)Ordered By: Ender Oates on 08-10-2023 MCV (RBC) [Entitic vol] 100.2 fL 81-99 [facility] Erythrocyte distribution wid th ratioOrdered By: Ender Oates on 08-10-2023 Erythrocyte distribution width (RBC) [Ratio] 14.6 % 11.6-14.6 [facility] Erythrocyte distribution wid th standard deviationOrdered By: Ender Oates on 08-10-2023 Erythrocyte distribution width (RBC) [Entitic vol] 54.9 fL 35.1-43.9 [facility] Hematocrit Auto (Bld) [Volum e fraction]Ordered By: Ender Oates on 08-10-2023 Hematocrit (Bld) [Volume fraction] 46.5 % 37-47 [facility] Laboratory - Chemistry and C hemistry - challengeOrdered By: Ender Oates on 08-10-2023 Albumin/Globulin [Mass ratio] 0.7 {ratio} 0.9-2.4 [facility] ALP [Catalytic activity/Vol] 93 U/L 45-117 [facility] ALT [Catalytic activity/Vol] 18 U/L 13-56 [facility] Cholesterol in HDL [Mass/Vol] 59 mg/dL >40 [facility] Comment on above: The drugs N-Acetylcy steine and Metamizole may falsely depress this assay. Reference Range HDL <40 mg/dL Low HDL Cholesterol HDL >or= 60 mg/dL High HDL Cholesterol Cholesterol in LDL [Mass/Vol] 62 mg/dL 0-130 [facility] CO2 [Moles/Vol] 28.0 mmol/L 21.0-32.0 [facility] Globulin (S) [Mass/Vol] 4.3 g/dL 2.2-4.2 [facility] Urea nitrogen/Creatinine [Mass ratio] 26.5 mg/mg 10-20 [facility] Laboratory - Hematology and Cell countsOrdered By: Ender Oates on 08-10-2023 MCH (RBC) [Entitic mass] 32.1 pg 27.0-32.0 [facility] MCHC (RBC) [Mass/Vol] 32.0 g/dL 32-36 [facility] Platelet mean volume (Bld) [Entitic vol] 10.2 fL 6.2-12.0 [facility] Platelets (Bld) [#/Vol] 237 10*3/uL 150-450 [facility] No Panel InformationOrdered By: Ender Oates on 08-10-2023 Estimated GFR (MDRD) Amer 62 mL/min >60 [facility] Comment on above: GFR Calc Estimated GFR (MDRD) Non-Af Amer 51 mL/min >60 [facility] Comment on above: Non- GFR Calc VLDL Cholesterol 53 mg/dL 5-40 [facility] RBC Auto (Bld) [#/Vol]Ordere d By: Ender Oates on 08-10-2023 RBC (Bld) [#/Vol] 4.64 10*6/uL 4.2-5.4 [facility] Serum or plasma calcium tammie urement (mass/volume)Ordered By: Ender Oates on 08-10-2023 Calcium [Mass/Vol] 9.6 mg/dL 8.5-10.1 [facility] Serum or plasma creatinine m easurement [...] 08-10-2023 Urea nitrogen [Mass/Vol] 30 mg/dL 7-18 [facility] Thin prep Papanicolaou smear with manual screeningOrdered By: Ender Oates on 08-10-2023 Thin prep Papanicolaou smear with manual screening 3.2 g/dL 3.2-5.0 [facility] Thin prep Papanicolaou smear with manual screening 15 U/L 15-37 [facility] Thin prep Papanicolaou smear with manual screening 7 5-15 [facility] Basophil percentageOrdered B y: Ender Oates on 07-13-2023 Bilirubin [Mass/Vol] 0.70 mg/dL 0.20-1.00 [facility] Comment on above: For patients on eltr ombopag therapy, use of Dimension Bradshaw TBIL is not recommended. Chloride [Moles/Vol] 108 mmol/L 98-107 [facility] Glucose [Mass/Vol] 91 mg/dL 74-106 [facility] Hemoglobin (Bld) [Mass/Vol] 14.8 g/dL 12.0-15.0 [facility] Potassium [Moles/Vol] 4.7 mmol/L 3.5-5.1 [facility] Protein [Mass/Vol] 7.6 g/dL 6.4-8.2 [facility] Sodium [Moles/Vol] 141 mmol/L 136-145 [facility] WBC (Bld) [#/Vol] 5.6 10*3/uL 4.4-11.0 [facility] Determination of erythrocyte mean corpuscular volume (MCV)Ordered By: Ender Oates on 07-13-2023 MCV (RBC) [Entitic vol] 100.9 fL 81-99 [facility] Erythrocyte distribution wid th ratioOrdered By: Ender Oates on 07-13-2023 Erythrocyte distribution width (RBC) [Ratio] 15.4 % 11.6-14.6 [facility] Erythrocyte distribution wid th standard deviationOrdered By: Ender Oates on 07-13-2023 Erythrocyte distribution width (RBC) [Entitic vol] 57.7 fL 35.1-43.9 [facility] Hematocrit Auto (Bld) [Volum e fraction]Ordered By: Ender Oates on 07-13-2023 Hematocrit (Bld) [Volume fraction] 47.1 % 37-47 [facility] Laboratory - Chemistry and C hemistry - challengeOrdered By: Ender Oates on 07-13-2023 Albumin/Globulin [Mass ratio] 0.8 {ratio} 0.9-2.4 [facility] ALP [Catalytic activity/Vol] 84 U/L 45-117 [facility] ALT [Catalytic activity/Vol] 21 U/L 13-56 [facility] CO2 [Moles/Vol] 27.0 mmol/L 21.0-32.0 [facility] Globulin (S) [Mass/Vol] 4.3 g/dL 2.2-4.2 [facility] Urea nitrogen/Creatinine [Mass ratio] 29.3 mg/mg 10-20 [facility] Laboratory - Hematology and Cell countsOrdered By: Ender Oates on 07-13-2023 MCH (RBC) [Entitic mass] 31.7 pg 27.0-32.0 [facility] MCHC (RBC) [Mass/Vol] 31.4 g/dL 32-36 [facility] Platelet mean volume (Bld) [Entitic vol] 10.6 fL 6.2-12.0 [facility] Platelets (Bld) [#/Vol] 200 10*3/uL 150-450 [facility] No Panel InformationOrdered By: Ender Oates on 07-13-2023 Estimated GFR (MDRD) Amer 94 mL/min >60 [facility] Comment on above: GFR Calc Estimated GFR (MDRD) Non-Af Amer 78 mL/min >60 [facility] Comment on above: Non- GFR Calc RBC Auto (Bld) [#/Vol]Ordere d By: Ender Oates on 07-13-2023 RBC (Bld) [#/Vol] 4.67 10*6/uL 4.2-5.4 [facility] Serum or plasma calcium tammie urement (mass/volume)Ordered By: Ender Oates on 07-13-2023 Calcium [Mass/Vol] 9.2 mg/dL 8.5-10.1 [facility] Serum or plasma creatinine m easurement (mass/volume)Ordered By: Ender Oates on 07-13-2023 Creatinine [Mass/Vol] 0.78 mg/dL 0.55-1.02 [facility] Comment on above: The validity of the calculated GFR & GFRAA in patients over 70 years has not been determined. Clinical correlation is essential. Serum or plasma urea nitroge n measurement (mass/volume)Ordered By: Ender Oates on 07-13-2023 Urea nitrogen [Mass/Vol] 23 mg/dL 7-18 [facility] Thin prep Papanicolaou smear with manual screeningOrdered By: Ender Oates on 07-13-2023 Thin prep Papanicolaou smear with manual screening 3.3 g/dL 3.2-5.0 [facility] Thin prep Papanicolaou smear with manual screening 18 U/L 15-37 [facility] Thin prep Papanicolaou smear with manual screening 6 5-15 [facility] Basophil percentageOrdered B y: Ender Oates on 06-08-2023 Bilirubin [Mass/Vol] 0.40 mg/dL 0.20-1.00 [facility] Comment on above: For patients on eltr ombopag therapy, use of Dimension Bradshaw TBIL is not recommended. Chloride [Moles/Vol] 105 mmol/L 98-107 [facility] Glucose [Mass/Vol] 90 mg/dL 74-106 [facility] Potassium [Moles/Vol] 4.8 mmol/L 3.5-5.1 [facility] Protein [Mass/Vol] 7.3 g/dL 6.4-8.2 [facility] Sodium [Moles/Vol] 138 mmol/L 136-145 [facility] WBC (Bld) [#/Vol] 6.9 10*3/uL 4.4-11.0 [facility] Blood erythrocytes count (nu mber/volume)Ordered By: Ender Oates on 06-08-2023 RBC (Bld) [#/Vol] 4.60 10*6/uL 4.2-5.4 [facility] Blood hemoglobin measurement (mass/volume)Ordered By: Ender Oates on 06-08-2023 Hemoglobin (Bld) [Mass/Vol] 14.4 g/dL 12.0-15.0 [facility] Blood platelet mean volumeOr dered By: Ender Oates on 06-08-2023 Platelet mean volume (Bld) [Entitic vol] 10.9 fL 6.2-12.0 [facility] Determination of erythrocyte mean corpuscular volume (MCV)Ordered By: Ender Oates on 06-08-2023 MCV (RBC) [Entitic vol] 103.0 fL 81-99 [facility] Hematocrit Auto (Bld) [Volum e fraction]Ordered By: Ender Oates on 06-08-2023 Hematocrit (Bld) [Volume fraction] 47.4 % 37-47 [facility] Laboratory - Chemistry and C hemistry - challengeOrdered By: Ender Oates on 06-08-2023 ALP [Catalytic activity/Vol] 90 U/L 45-117 [facility] ALT [Catalytic activity/Vol] 17 U/L 13-56 [facility] CO2 [Moles/Vol] 30.0 mmol/L 21.0-32.0 [facility] Globulin (S) [Mass/Vol] 4.2 g/dL 2.2-4.2 [facility] Urea nitrogen/Creatinine [Mass ratio] 30.5 mg/mg 10-20 [facility] Laboratory - Hematology and Cell countsOrdered By: Ender Oates on 06-08-2023 Erythrocyte distribution width (RBC) [Entitic vol] 58.5 fL 35.1-43.9 [facility] Erythrocyte distribution width (RBC) [Ratio] 15.4 % 11.6-14.6 [facility] MCH (RBC) [Entitic mass] 31.3 pg 27.0-32.0 [facility] MCHC Auto (RBC) [Mass/Vol]Or dered By: Ender Oates on 06-08-2023 MCHC (RBC) [Mass/Vol] 30.4 g/dL 32-36 [facility] No Panel InformationOrdered By: Ender Oates on 06-08-2023 Estimated GFR (MDRD) Amer 67 mL/min >60 [facility] Comment on above: GFR Calc Estimated GFR (MDRD) Non-Af Amer 56 mL/min >60 [facility] Comment on above: Non- GFR Calc Platelets bldOrdered By: Ronaldo Oates on 06-08-2023 Platelets (Bld) [#/Vol] 216 10*3/uL 150-450 [facility] Serum or plasma albumin tammie urement (mass/volume)Ordered By: Ender Oates on 06-08-2023 Albumin [Mass/Vol] 3.1 g/dL 3.2-5.0 [facility] Serum or plasma albumin/glob ulin mass ratioOrdered By: Ender Oates on 06-08-2023 Albumin/Globulin [Mass ratio] 0.7 {ratio} 0.9-2.4 [facility] Serum or plasma calcium tammie urement (mass/volume)Ordered By: Ender Oates on 06-08-2023 Calcium [Mass/Vol] 9.1 mg/dL 8.5-10.1 [facility] Serum or plasma creatinine m easurement [...] 06-08-2023 Urea nitrogen [Mass/Vol] 32 mg/dL 7-18 [facility] Thin prep Papanicolaou smear with manual screeningOrdered By: Ender Oates on 06-08-2023 Thin prep Papanicolaou smear with manual screening 16 U/L 15-37 [facility] Thin prep Papanicolaou smear with manual screening 3 5-15 [facility] Automated blood hematocrit ( percentage)Ordered By: Ender Oates on 05-11-2023 Hematocrit (Bld) [Volume fraction] 41.8 % 37-47 [facility] Basophil percentageOrdered B y: Ender Oates on 05-11-2023 Bilirubin [Mass/Vol] 0.30 mg/dL 0.20-1.00 [facility] Comment on above: For patients on eltr ombopag therapy, use of Dimension Bradshaw TBIL is not recommended. Chloride [Moles/Vol] 106 mmol/L 98-107 [facility] Glucose [Mass/Vol] 102 mg/dL 74-106 [facility] Comment on above: Fasting Glucose resu lt from 100 to 125 mg/dL suggests IMPAIRED HOMEOSTASIS per A.D.A. criteria. Potassium [Moles/Vol] 3.7 mmol/L 3.5-5.1 [facility] Protein [Mass/Vol] 6.4 g/dL 6.4-8.2 [facility] Sodium [Moles/Vol] 142 mmol/L 136-145 [facility] WBC (Bld) [#/Vol] 7.2 10*3/uL 4.4-11.0 [facility] Blood erythrocytes count (nu mber/volume)Ordered By: Ender Oates on 05-11-2023 RBC (Bld) [#/Vol] 4.15 10*6/uL 4.2-5.4 [facility] Blood hemoglobin measurement (mass/volume)Ordered By: Ender Oates on 05-11-2023 Hemoglobin (Bld) [Mass/Vol] 12.8 g/dL 12.0-15.0 [facility] Blood platelet mean volumeOr dered By: Ender Oates on 05-11-2023 Platelet mean volume (Bld) [Entitic vol] 10.8 fL 6.2-12.0 [facility] CBCon 05-11-2023 Erythrocyte distribution width (RBC) [Ratio] 14.7 % 11.7 - 15.0 % [facility] MCHC (RBC) [Mass/Vol] 31.5 g/dL 31.5 - 35.7 g/dL [facility] Platelet mean volume (Bld) [Entitic vol] 10.8 % 7.3 - 11.1 % [facility] Platelets (Bld) [#/Vol] 217 10*3/uL 140 - 440 K/uL [facility] RDW-SD 57.2 [facility] CMP (EXTERNAL)on 05-11-2023 Alk Phos Total 85 U/L 45 - 117 U/L [facility] Anion gap [Moles/Vol] 5 mmol/L [facility] AST [Catalytic activity/Vol] 19 U/L 8 - 37 U/L [facility] Bili Total 0.30 mg/dL 0.2 - 1 mg/dL [facility] CO2 [Moles/Vol] 31 mmol/L 21 - 32 MEQ/L [facility] GFR AFR AMER 83 mL/MIN [facility] GFR/1.73 sq M.predicted among non-blacks MDRD (S/P/Bld) [Vol rate/Area] 69 mL/min/{1.73_m2} [facility] Determination of erythrocyte mean corpuscular volume (MCV)Ordered By: Ender Oates on 05-11-2023 MCV (RBC) [Entitic vol] 100.7 fL 81-99 [facility] Laboratory - Chemistry and C hemistry - challengeOrdered By: Ender Oates on 05-11-2023 ALP [Catalytic activity/Vol] 85 U/L 45-117 [facility] ALT [Catalytic activity/Vol] 19 U/L 13-56 [facility] CO2 [Moles/Vol] 31.0 mmol/L 21.0-32.0 [facility] Globulin (S) [Mass/Vol] 3.7 g/dL 2.2-4.2 [facility] Urea nitrogen/Creatinine [Mass ratio] 30.9 mg/mg 10-20 [facility] Laboratory - Hematology and Cell countsOrdered By: Ender Oates on 05-11-2023 Erythrocyte distribution width (RBC) [Entitic vol] 57.2 fL 35.1-43.9 [facility] Erythrocyte distribution width (RBC) [Ratio] 15.3 % 11.6-14.6 [facility] MCH (RBC) [Entitic mass] 30.8 pG 27.0-32.0 [facility] MCHC Auto (RBC) [Mass/Vol]Or dered By: Ender Oates on 05-11-2023 MCHC (RBC) [Mass/Vol] 30.6 g/dL 32-36 [facility] No Panel InformationOrdered By: Ender Oates on 05-11-2023 Estimated GFR (MDRD) Amer 83 mL/min >60 [facility] Comment on above: GFR Calc Estimated GFR (MDRD) Non-Af Amer 69 mL/min >60 [facility] Comment on above: Non- GFR Calc Platelets bldOrdered By: Ronaldo concepcion Gracie on 05-11-2023 Platelets (Bld) [#/Vol] 196 10*3/uL 150-450 [facility] Serum or plasma albumin tammie urement (mass/volume)Ordered By: Ender Oates on 05-11-2023 Albumin [Mass/Vol] 2.7 g/dL 3.2-5.0 [facility] Serum or plasma albumin/glob ulin mass ratioOrdered By: Ender Oates on 05-11-2023 Albumin/Globulin [Mass ratio] 0.7 {ratio} 0.9-2.4 [facility] Serum or plasma calcium tammie urement (mass/volume)Ordered By: Ender Oates on 05-11-2023 Calcium [Mass/Vol] 8.9 mg/dL 8.5-10.1 [facility] Serum or plasma creatinine m easurement [...] 05-11-2023 Urea nitrogen [Mass/Vol] 27 mg/dL 7-18 [facility] Thin prep Papanicolaou smear with manual screeningOrdered By: Ender Oates on 05-11-2023 Thin prep Papanicolaou smear with manual screening 19 U/L 15-37 [facility] Thin prep Papanicolaou smear with manual screening 5 5-15 [facility] BMP - EXTERNALon 04-13-2023 Alk Phos 78 U/L 50 - 136 U/L [facility] Anion gap [Moles/Vol] 5 mmol/L [facility] AST [Catalytic activity/Vol] 25 U/L 39 U/L [facility] Bilirubin, Total. 0.40 [facility] GFR AFR AMER 83 mL/MIN [facility] GFR/1.73 sq M.predicted among non-blacks MDRD (S/P/Bld) [Vol rate/Area] 69 mL/min/{1.73_m2} [facility] Globulin 4.2 [facility] HCO3 (Bld) [Moles/Vol] 26 mmol/L [facility] Basophil percentageOrdered B y: Ender Oates on 04-13-2023 Bilirubin [Mass/Vol] 0.40 mg/dL 0.20-1.00 [facility] Comment on above: For patients on eltr ombopag therapy, use of Dimension Bradshaw TBIL is not recommended. Chloride [Moles/Vol] 108 mmol/L 98-107 [facility] Glucose [Mass/Vol] 98 mg/dL 74-106 [facility] Potassium [Moles/Vol] 4.5 mmol/L 3.5-5.1 [facility] Comment on above: Slight Hemolysis, Re sult may be falsely increased. Protein [Mass/Vol] 7.3 g/dL 6.4-8.2 [facility] Sodium [Moles/Vol] 139 mmol/L 136-145 [facility] WBC (Bld) [#/Vol] 6.2 10*3/uL 4.4-11.0 [facility] Blood erythrocytes count (nu mber/volume)Ordered By: Ender Oates on 04-13-2023 RBC (Bld) [#/Vol] 4.24 10*6/uL 4.2-5.4 [facility] Blood hemoglobin measurement (mass/volume)Ordered By: Ender Oates on 04-13-2023 Hemoglobin (Bld) [Mass/Vol] 13.6 g/dL 12.0-15.0 [facility] Blood platelet mean volumeOr dered By: Ender Oates on 04-13-2023 Platelet mean volume (Bld) [Entitic vol] 10.8 fL 6.2-12.0 [facility] Determination of erythrocyte mean corpuscular volume (MCV)Ordered By: Ender Oates on 04-13-2023 MCV (RBC) [Entitic vol] 101.9 fL 81-99 [facility] Hematocrit Auto (Bld) [Volum e fraction]Ordered By: Ender Oates on 04-13-2023 Hematocrit (Bld) [Volume fraction] 43.2 % 37-47 [facility] Laboratory - Chemistry and C hemistry - challengeOrdered By: Ender Oates on 04-13-2023 ALP [Catalytic activity/Vol] 78 U/L 45-117 [facility] ALT [Catalytic activity/Vol] 20 U/L 13-56 [facility] CO2 [Moles/Vol] 26.0 mmol/L 21.0-32.0 [facility] Globulin (S) [Mass/Vol] 4.2 g/dL 2.2-4.2 [facility] Urea nitrogen/Creatinine [Mass ratio] 26.3 mg/mg 10-20 [facility] Laboratory - Hematology and Cell countsOrdered By: Ender Oates on 04-13-2023 Erythrocyte distribution width (RBC) [Entitic vol] 55.5 fL 35.1-43.9 [facility] Erythrocyte distribution width (RBC) [Ratio] 14.7 % 11.6-14.6 [facility] MCH (RBC) [Entitic mass] 32.1 pg 27.0-32.0 [facility] MCHC Auto (RBC) [Mass/Vol]Or dered By: Ender Oates on 04-13-2023 MCHC (RBC) [Mass/Vol] 31.5 g/dL 32-36 [facility] No Panel InformationOrdered By: Ender Oates on 04-13-2023 Estimated GFR (MDRD) Amer 83 mL/min >60 [facility] Comment on above: GFR Calc Estimated GFR (MDRD) Non-Af Amer 69 mL/min >60 [facility] Comment on above: Non- GFR Calc Platelets bldOrdered By: Ronaldo Oates on 04-13-2023 Platelets (Bld) [#/Vol] 217 10*3/uL 150-450 [facility] Serum or plasma albumin tammie urement (mass/volume)Ordered By: Ender Oates on 04-13-2023 Albumin [Mass/Vol] 3.1 g/dL 3.2-5.0 [facility] Serum or plasma albumin/glob ulin mass ratioOrdered By: Ender Oates on 04-13-2023 Albumin/Globulin [Mass ratio] 0.7 {ratio} 0.9-2.4 [facility] Serum or plasma calcium tammie urement (mass/volume)Ordered By: Ender Oates on 04-13-2023 Calcium [Mass/Vol] 8.7 mg/dL 8.5-10.1 [facility] Serum or plasma creatinine m easurement (mass/volume)Ordered By: Ender Oates on 04-13-2023 Creatinine [Mass/Vol] 0.88 mg/dL 0.55-1.02 [facility] Comment on above: The validity of the calculated GFR & GFRAA in patients over 70 years has not been determined. Clinical correlation is essential. Serum or plasma urea nitroge n measurement (mass/volume)Ordered By: Ender Oates on 04-13-2023 Urea nitrogen [Mass/Vol] 23 mg/dL - [facility] Thin prep Papanicolaou smear with manual screeningOrdered By: Ender Oates on 04-13-2023 Thin prep Papanicolaou smear with manual screening 25 U/L [facility] Comment on above: Slight Hemolysis, Re sult may be falsely increased. Thin prep Papanicolaou smear with manual screening 5 5-15 [facility] CBC panel Auto (Bld)on 04-06 Erythrocyte distribution width (RBC) [Ratio] 13.9 % 11.7 - 15.0 % [facility] Hematocrit (Bld) [Volume fraction] 43.2 % 35 - 47 % [facility] Hemoglobin (Bld) [Mass/Vol] 13.6 g/dL [facility] MCH (RBC) [Entitic mass] 32.1 pG 27 - 34 pG [facility] MCHC (RBC) [Mass/Vol] 30.6 g/dL Abnormal 31.5 - 35.7 g/dL [facility] Platelet mean volume (Bld) [Entitic vol] 10.8 % Abnormal 7.3 - 11.1 % [facility] Platelets (Bld) [#/Vol] 21.7 10*3/uL Abnormal 150 - 400 k/uL [facility] RBC (Bld) [#/Vol] 4.26 10*6/uL [facility] RDW-SD 54.2 [facility] WBC (Bld) [#/Vol] 6.2 10*3/uL [facility] Basophil percentageOrdered B y: Ender Oates on 03-09-2023 Bilirubin [Mass/Vol] 0.60 mg/dL 0.20-1.00 [facility] Comment on above: For patients on eltr ombopag therapy, use of Dimension Bradshaw TBIL is not recommended. Chloride [Moles/Vol] 106 mmol/L 98-107 [facility] Glucose [Mass/Vol] 105 mg/dL 74-106 [facility] Comment on above: Fasting Glucose resu lt from 100 to 125 mg/dL suggests IMPAIRED HOMEOSTASIS per A.D.A. criteria. Potassium [Moles/Vol] 5.0 mmol/L 3.5-5.1 [facility] Protein [Mass/Vol] 7.1 g/dL 6.4-8.2 [facility] Sodium [Moles/Vol] 139 mmol/L 136-145 [facility] WBC (Bld) [#/Vol] 6.2 10*3/uL 4.4-11.0 [facility] Blood erythrocytes count (nu mber/volume)Ordered By: Ender Oates on 03-09-2023 RBC (Bld) [#/Vol] 4.31 10*6/uL 4.2-5.4 [facility] Blood hemoglobin measurement (mass/volume)Ordered By: Ender Oates on 03-09-2023 Hemoglobin (Bld) [Mass/Vol] 13.7 g/dL 12.0-15.0 [facility] Blood platelet mean volumeOr dered By: Ender Oates on 03-09-2023 Platelet mean volume (Bld) [Entitic vol] 11.4 fL 6.2-12.0 [facility] Determination of erythrocyte mean corpuscular volume (MCV)Ordered By: Ender Oates on 03-09-2023 MCV (RBC) [Entitic vol] 103.7 fL 81-99 [facility] Hematocrit Auto (Bld) [Volum e fraction]Ordered By: Ender Oates on 03-09-2023 Hematocrit (Bld) [Volume fraction] 44.7 % 37-47 [facility] Laboratory - Chemistry and C hemistry - challengeOrdered By: Ender Oates on 03-09-2023 ALP [Catalytic activity/Vol] 94 U/L 45-117 [facility] ALT [Catalytic activity/Vol] 16 U/L 13-56 [facility] CO2 [Moles/Vol] 28.0 mmol/L 21.0-32.0 [facility] Globulin (S) [Mass/Vol] 4.0 g/dL 2.2-4.2 [facility] Urea nitrogen/Creatinine [Mass ratio] 31.3 mg/mg 10-20 [facility] Laboratory - Hematology and Cell countsOrdered By: Ender Oates on 03-09-2023 Erythrocyte distribution width (RBC) [Entitic vol] 54.2 fL 35.1-43.9 [facility] Erythrocyte distribution width (RBC) [Ratio] 13.9 % 11.6-14.6 [facility] MCH (RBC) [Entitic mass] 31.8 pg 27.0-32.0 [facility] MCHC Auto (RBC) [Mass/Vol]Or dered By: Ender Oates on 03-09-2023 MCHC (RBC) [Mass/Vol] 30.6 g/dL 32-36 [facility] No Panel InformationOrdered By: Ender Oates on 03-09-2023 Estimated GFR (MDRD) Amer 75 mL/min >60 [facility] Comment on above: GFR Calc Estimated GFR (MDRD) Non-Af Amer 62 mL/min >60 [facility] Comment on above: Non- GFR Calc Platelets bldOrdered By: Ronaldo Oates on 03-09-2023 Platelets (Bld) [#/Vol] 216 10*3/uL 150-450 [facility] Serum or plasma albumin tammie urement (mass/volume)Ordered By: Ender Oates on 03-09-2023 Albumin [Mass/Vol] 3.1 g/dL 3.2-5.0 [facility] Serum or plasma albumin/glob ulin mass ratioOrdered By: Ender Oates on 03-09-2023 Albumin/Globulin [Mass ratio] 0.8 {ratio} 0.9-2.4 [facility] Serum or plasma calcium tammie urement (mass/volume)Ordered By: Ender Oates on 03-09-2023 Calcium [Mass/Vol] 8.7 mg/dL 8.5-10.1 [facility] Serum or plasma creatinine m easurement [...] 03-09-2023 Urea nitrogen [Mass/Vol] 30 mg/dL 7-18 [facility] Thin prep Papanicolaou smear with manual screeningOrdered By: Ender Oates on 03-09-2023 Thin prep Papanicolaou smear with manual screening 14 U/L 15-37 [facility] Thin prep Papanicolaou smear with manual screening 5 5-15 [facility] Basophil percentageOrdered B y: Ender Oates on 03-07-2023 Basophil percentage 0-5 SEEN /hpf 0-5 [facility] Bilirubin Test strip Ql (U)O rdered By: Ender Oates on 03-07-2023 Bilirubin Ql (U) Negative Negative [facility] Culture, urineOrdered By: Donnie Oates on 03-07-2023 Bacteria identified Cx Nom (U) Proteus mirabilis [facility] Ketones Test strip Ql (U)Ord ered By: Ender Oates on 03-07-2023 Ketones Ql (U) Negative Negative [facility] Mucus LM Ql (Urine sed)Order ed By: Enedr Oates on 03-07-2023 Mucus Ql (Urine sed) 0 SEEN /hpf [facility] Nitrite Test strip Ql (U)Ord ered By: Ender Oates on 03-07-2023 Nitrite Ql (U) Negative Negative [facility] Protein Test strip Ql (U)Ord ered By: Ender Oatse on 03-07-2023 Protein Ql (U) Negative Negative [facility] Squamous epithelial cells de tection in urine sediment by light microscopyOrdered By: Ender Oates on 03-07-2023 Epithelial cells.squamous LM Ql (Urine sed) 0-5 SEEN /hpf 5-10 [facility] Urine blood detectionOrdered By: Ender Oates on 03-07-2023 RBC Ql (U) 10 /ul Negative [facility] RBC Ql (U) 0 SEEN /hpf 0-5 [facility] Urine clarityOrdered By: Ronaldo Oates on 03-07-2023 Clarity (U) Clear Clear [facility] Urine color determinationOrd ered By: Ender Oates on 03-07-2023 Color (U) Yellow Yellow [facility] Urine glucose detectionOrder ed By: Ender Oates on 03-07-2023 Glucose Ql (U) Normal mg/dl Normal [facility] Urine leukocyte esterase det ection by dipstickOrdered By: Ender Oates on 03-07-2023 Leukocyte esterase Test strip Ql (U) 100 /ul Negative [facility] Urine pHOrdered By: Ender Oates on 03-07-2023 pH (U) 6.5 [pH] 5.0 - 8.0 [facility] Urine sediment bacteria coun t by microscopy (number/high power field)Ordered By: Ender Oates on 03-07-2023 Bacteria LM.HPF (Urine sed) [#/Area] RARE /hpf None Seen [facility] Urine specific gravity measu rementOrdered By: Ender Oates on 03-07-2023 Specific gravity (U) [Rel density] 1.010 1.002-1.030 [facility] Urobilinogen Auto test strip Ql (U)Ordered By: Ender Oates on 03-07-2023 Urobilinogen Ql (U) Normal mg/dl Normal [facility] Basophil percentageOrdered B y: Ender Oates on 02-09-2023 Bilirubin [Mass/Vol] 0.50 mg/dL 0.20-1.00 [facility] Comment on above: For patients on eltr ombopag therapy, use of Dimension Bradshaw TBIL is not recommended. Chloride [Moles/Vol] 107 mmol/L 98-107 [facility] Cholesterol [Mass/Vol] 121 mg/dL <200 [facility] Comment on above: <200 mg/dL Desirable 200-240 mg/dL Borderline >240 mg/dL High Risk Glucose [Mass/Vol] 87 mg/dL 74-106 [facility] Potassium [Moles/Vol] 4.3 mmol/L 3.5-5.1 [facility] Protein [Mass/Vol] 6.5 g/dL 6.4-8.2 [facility] Sodium [Moles/Vol] 138 mmol/L 136-145 [facility] Triglyceride [Mass/Vol] 81 mg/dL <199 [facility] Comment on above: The drugs N-Acetylcy steine and Metamizole may falsely depress this assay.Serum Triglycerides Reference Interval Normal <150 mg/dL Borderline high 150 - 199 mg/dL High 200 - 499 mg/dL Very High > or = 500 mg/dL WBC (Bld) [#/Vol] 6.3 10*3/uL 4.4-11.0 [facility] Blood erythrocytes count (nu mber/volume)Ordered By: Ender Oates on 02-09-2023 RBC (Bld) [#/Vol] 3.95 10*6/uL 4.2-5.4 [facility] Blood hemoglobin measurement (mass/volume)Ordered By: Ender Oates on 02-09-2023 Hemoglobin (Bld) [Mass/Vol] 12.9 g/dL 12.0-15.0 [facility] Blood platelet mean volumeOr dered By: Ender Oates on 02-09-2023 Platelet mean volume (Bld) [Entitic vol] 11.4 fL 6.2-12.0 [facility] Determination of erythrocyte mean corpuscular volume (MCV)Ordered By: Ender Oates on 02-09-2023 MCV (RBC) [Entitic vol] 102.8 fL 81-99 [facility] Hematocrit Auto (Bld) [Volum e fraction]Ordered By: Ender Oates on 02-09-2023 Hematocrit (Bld) [Volume fraction] 40.6 % 37-47 [facility] Laboratory - Chemistry and C hemistry - challengeOrdered By: Ender Oates on 02-09-2023 ALP [Catalytic activity/Vol] 87 U/L 45-117 [facility] ALT [Catalytic activity/Vol] 14 U/L 13-56 [facility] CO2 [Moles/Vol] 28.0 mmol/L 21.0-32.0 [facility] Globulin (S) [Mass/Vol] 3.8 g/dL 2.2-4.2 [facility] Urea nitrogen/Creatinine [Mass ratio] 26.2 mg/mg 10-20 [facility] Laboratory - Hematology and Cell countsOrdered By: Ender Oates on 02-09-2023 Erythrocyte distribution width (RBC) [Entitic vol] 53.2 fL 35.1-43.9 [facility] Erythrocyte distribution width (RBC) [Ratio] 13.8 % 11.6-14.6 [facility] MCH (RBC) [Entitic mass] 32.7 pg 27.0-32.0 [facility] MCHC Auto (RBC) [Mass/Vol]Or dered By: Ender Oates on 02-09-2023 MCHC (RBC) [Mass/Vol] 31.8 g/dL 32-36 [facility] No Panel InformationOrdered By: Ender Oates on 02-09-2023 Estimated GFR (MDRD) Amer 83 mL/min >60 [facility] Comment on above: GFR Calc Estimated GFR (MDRD) Non-Af Amer 68 mL/min >60 [facility] Comment on above: Non- GFR Calc Platelets bldOrdered By: Ronaldo Oates on 02-09-2023 Platelets (Bld) [#/Vol] 173 10*3/uL 150-450 [facility] Serum or plasma albumin tammie urement (mass/volume)Ordered By: Ender Oates on 02-09-2023 Albumin [Mass/Vol] 2.7 g/dL 3.2-5.0 [facility] Serum or plasma albumin/glob ulin mass ratioOrdered By: Ender Oates on 02-09-2023 Albumin/Globulin [Mass ratio] 0.7 {ratio} 0.9-2.4 [facility] Serum or plasma calcium tammie urement (mass/volume)Ordered By: Ender Oates on 02-09-2023 Calcium [Mass/Vol] 8.1 mg/dL 8.5-10.1 [facility] Serum or plasma cholesterol in HDL measurement (mass/volume)Ordered By: Ender Oates on 02-09-2023 Cholesterol in HDL [Mass/Vol] 55 mg/dL >40 [facility] Comment on above: The drugs N-Acetylcy steine and Metamizole may falsely depress this assay. Reference Range HDL <40 mg/dL Low HDL Cholesterol HDL >or= 60 mg/dL High HDL Cholesterol Serum or plasma cholesterol in VLDL measurement (mass/volume)Ordered By: Ender Oates on 02-09-2023 Cholesterol in VLDL [Mass/Vol] 16 mg/dL 5-40 [facility] Serum or plasma creatinine m [...] Cholesterol in LDL [Mass/Vol] 50 mg/dL 0-130 [facility] Serum or plasma urea nitroge n measurement (mass/volume)Ordered By: Ender Oates on 02-09-2023 Urea nitrogen [Mass/Vol] 23 mg/dL 7-18 [facility] Thin prep Papanicolaou smear with manual screeningOrdered By: Ender Oates on 02-09-2023 Thin prep Papanicolaou smear with manual screening 15 U/L 15-37 [facility] Thin prep Papanicolaou smear with manual screening 3 5-15 [facility] Basophil percentageOrdered B y: Ender Oates on 01-12-2023 Bilirubin [Mass/Vol] 0.30 mg/dL 0.20-1.00 [facility] Comment on above: For patients on eltr ombopag therapy, use of Dimension Bradshaw TBIL is not recommended. Chloride [Moles/Vol] 107 mmol/L 98-107 [facility] Glucose [Mass/Vol] 86 mg/dL 74-106 [facility] Potassium [Moles/Vol] 4.4 mmol/L 3.5-5.1 [facility] Protein [Mass/Vol] 6.3 g/dL 6.4-8.2 [facility] Sodium [Moles/Vol] 141 mmol/L 136-145 [facility] WBC (Bld) [#/Vol] 4.9 10*3/uL 4.4-11.0 [facility] Blood erythrocytes count (nu mber/volume)Ordered By: Ender Oates on 01-12-2023 RBC (Bld) [#/Vol] 3.85 10*6/uL 4.2-5.4 [facility] Blood hemoglobin measurement (mass/volume)Ordered By: Ender Oates on 01-12-2023 Hemoglobin (Bld) [Mass/Vol] 12.9 g/dL 12.0-15.0 [facility] Blood platelet mean volumeOr dered By: Ender Oates on 01-12-2023 Platelet mean volume (Bld) [Entitic vol] 11.2 fL 6.2-12.0 [facility] Determination of erythrocyte mean corpuscular volume (MCV)Ordered By: Ender Oates on 01-12-2023 MCV (RBC) [Entitic vol] 106.5 fL 81-99 [facility] Hematocrit Auto (Bld) [Volum e fraction]Ordered By: Ender Oates on 01-12-2023 Hematocrit (Bld) [Volume fraction] 41.0 % 37-47 [facility] Laboratory - Chemistry and C hemistry - challengeOrdered By: Ender Oates on 01-12-2023 ALP [Catalytic activity/Vol] 70 U/L 45-117 [facility] ALT [Catalytic activity/Vol] 18 U/L 13-56 [facility] CO2 [Moles/Vol] 31.0 mmol/L 21.0-32.0 [facility] Globulin (S) [Mass/Vol] 3.6 g/dL 2.2-4.2 [facility] Urea nitrogen/Creatinine [Mass ratio] 24.5 mg/mg 10-20 [facility] Laboratory - Hematology and Cell countsOrdered By: Ender Oates on 01-12-2023 Erythrocyte distribution width (RBC) [Entitic vol] 56.8 fL 35.1-43.9 [facility] Erythrocyte distribution width (RBC) [Ratio] 14.5 % 11.6-14.6 [facility] MCH (RBC) [Entitic mass] 33.5 pg 27.0-32.0 [facility] MCHC Auto (RBC) [Mass/Vol]Or dered By: Ender Oates on 01-12-2023 MCHC (RBC) [Mass/Vol] 31.5 g/dL 32-36 [facility] No Panel InformationOrdered By: Ender Oates on 01-12-2023 Estimated GFR (MDRD) Amer 73 mL/min >60 [facility] Comment on above: GFR Calc Estimated GFR (MDRD) Non-Af Amer 60 mL/min >60 [facility] Comment on above: Non- GFR Calc Platelets bldOrdered By: Ronaldo Oates on 01-12-2023 Platelets (Bld) [#/Vol] 171 10*3/uL 150-450 [facility] Serum or plasma albumin tammie urement (mass/volume)Ordered By: Ender Oates on 01-12-2023 Albumin [Mass/Vol] 2.7 g/dL 3.2-5.0 [facility] Serum or plasma albumin/glob ulin mass ratioOrdered By: Ender Oates on 01-12-2023 Albumin/Globulin [Mass ratio] 0.8 {ratio} 0.9-2.4 [facility] [facility] Serum or plasma calcium tammie urement (mass/volume)Ordered By: Ender Oates on 01-12-2023 Calcium [Mass/Vol] 8.7 mg/dL 8.5-10.1 [facility] Serum or plasma creatinine m easurement [...] 01-12-2023 Urea nitrogen [Mass/Vol] 24 mg/dL 7-18 [facility] Thin prep Papanicolaou smear with manual screeningOrdered By: Ender Oates on 01-12-2023 Thin prep Papanicolaou smear with manual screening 17 U/L 15-37 [facility] Thin prep Papanicolaou smear with manual screening 3 5-15 [facility] Automated blood hematocrit ( percentage)Ordered By: Ender Oates on 12-30-2022 Hematocrit (Bld) [Volume fraction] 43.6 % 37-47 [facility] Basophil percentageOrdered B y: Ender Oates on 12-30-2022 Bilirubin [Mass/Vol] 0.50 mg/dL 0.20-1.00 [facility] Comment on above: For patients on eltr ombopag therapy, use of Dimension Bradshaw TBIL is not recommended. Chloride [Moles/Vol] 105 mmol/L 98-107 [facility] Glucose [Mass/Vol] 89 mg/dL 74-106 [facility] Potassium [Moles/Vol] 4.1 mmol/L 3.5-5.1 [facility] Protein [Mass/Vol] 7.4 g/dL 6.4-8.2 [facility] Sodium [Moles/Vol] 137 mmol/L 136-145 [facility] WBC (Bld) [#/Vol] 6.6 10*3/uL 4.4-11.0 [facility] Blood erythrocytes count (nu mber/volume)Ordered By: Ender Oates on 12-30-2022 RBC (Bld) [#/Vol] 4.20 10*6/uL 4.2-5.4 [facility] Blood hemoglobin measurement (mass/volume)Ordered By: Ender Oates on 12-30-2022 Hemoglobin (Bld) [Mass/Vol] 13.9 g/dL 12.0-15.0 [facility] Blood platelet mean volumeOr dered By: Ender Oates on 12-30-2022 Platelet mean volume (Bld) [Entitic vol] 12.2 fL 6.2-12.0 [facility] CBCon 12-30-2022 MCH 33.1 pG 27 - 34 pG [facility] MCHC 31.9 % Abnormal 32 - 36 % [facility] MPV 12.2 % Abnormal 7.3 - 11.1 % [facility] RDW-SD 56.2 [facility] CMP (EXTERNAL)on 12-30-2022 Alk Phos Total 85 U/L 45 - 117 U/L [facility] AST [Catalytic activity/Vol] 20 U/L 8 - 37 U/L [facility] Bili Total 0.50 mg/dL 0.2 - 1 mg/dL [facility] CO2 [Moles/Vol] 26 mmol/L 21 - 32 MEQ/L [facility] GFR AFR AMER 85 mL/MIN [facility] GFR/1.73 sq M.predicted among non-blacks MDRD (S/P/Bld) [Vol rate/Area] 70 mL/min/{1.73_m2} [facility] Determination of erythrocyte mean corpuscular volume (MCV)Ordered By: Ender Oates on 12-30-2022 MCV (RBC) [Entitic vol] 103.8 fL 81-99 [facility] Laboratory - Chemistry and C hemistry - challengeOrdered By: Ender Oates on 12-30-2022 ALP [Catalytic activity/Vol] 85 U/L 45-117 [facility] ALT [Catalytic activity/Vol] 18 U/L 13-56 [facility] CO2 [Moles/Vol] 26.0 mmol/L 21.0-32.0 [facility] Globulin (S) [Mass/Vol] 4.1 g/dL 2.2-4.2 [facility] Urea nitrogen/Creatinine [Mass ratio] 35.0 mg/mg 10-20 [facility] Laboratory - Hematology and Cell countsOrdered By: Ender Oates on 12-30-2022 Erythrocyte distribution width (RBC) [Entitic vol] 56.2 fL 35.1-43.9 [facility] Erythrocyte distribution width (RBC) [Ratio] 14.5 % 11.6-14.6 [facility] MCH (RBC) [Entitic mass] 33.1 pg 27.0-32.0 [facility] Laboratory - Microbiology an d Antimicrobial susceptibilityOrdered By: Ender Oates on 12-30-2022 Bacteria identified Cx Nom (Bld) No growth in 5 days. [facility] Bacteria identified Cx Nom (Bld) No [facility] [Mass/Vol]Or dered By: Ender Oates on 12-30-2022 MCHC (RBC) [Mass/Vol] 31.9 g/dL 32-36 [facility] No Panel InformationOrdered By: Ender Oates on 12-30-2022 Estimated GFR (MDRD) Amer 85 mL/min >60 [facility] Comment on above: GFR Calc Estimated GFR (MDRD) Non-Af Amer 70 mL/min >60 [facility] Comment on above: Non- GFR Calc Platelets bldOrdered By: Ronaldo Oates on 12-30-2022 Platelets (Bld) [#/Vol] 168 10*3/uL 150-450 [facility] Serum or plasma albumin tammie urement (mass/volume)Ordered By: Ender Oates on 12-30-2022 Albumin [Mass/Vol] 3.3 g/dL 3.2-5.0 [facility] Serum or plasma albumin/glob ulin mass ratioOrdered By: Ender Oates on 12-30-2022 Albumin/Globulin [Mass ratio] 0.8 {ratio} 0.9-2.4 [facility] Serum or plasma calcium tammie urement (mass/volume)Ordered By: Ender Oates on 12-30-2022 Calcium [Mass/Vol] 9.0 mg/dL 8.5-10.1 [facility] Serum or plasma creatinine m easurement [...] 12-30-2022 Urea nitrogen [Mass/Vol] 30 mg/dL 7-18 [facility] Thin prep Papanicolaou smear with manual screeningOrdered By: Ender Oates on 12-30-2022 Thin prep Papanicolaou smear with manual screening 20 U/L 15-37 [facility] Thin prep Papanicolaou smear with manual screening 6 5-15 [facility] Automated blood hematocrit ( percentage)Ordered By: Ender Oates on 12-09-2022 Hematocrit (Bld) [Volume fraction] 41.4 % 37-47 [facility] Basophil percentageOrdered B y: Ender Oates on 12-09-2022 Bilirubin [Mass/Vol] 0.40 mg/dL 0.20-1.00 [facility] Comment on above: For patients on eltr ombopag therapy, use of Dimension Bradshaw TBIL is not recommended. Chloride [Moles/Vol] 107 mmol/L 98-107 [facility] Glucose [Mass/Vol] 107 mg/dL 74-106 [facility] Comment on above: Fasting Glucose resu lt from 100 to 125 mg/dL suggests IMPAIRED HOMEOSTASIS per A.D.A. criteria. Potassium [Moles/Vol] 4.0 mmol/L 3.5-5.1 [facility] Protein [Mass/Vol] 6.3 g/dL 6.4-8.2 [facility] Sodium [Moles/Vol] 138 mmol/L 136-145 [facility] WBC (Bld) [#/Vol] 6.1 10*3/uL 4.4-11.0 [facility] Blood erythrocytes count (nu mber/volume)Ordered By: Ender Oates on 12-09-2022 RBC (Bld) [#/Vol] 3.98 10*6/uL 4.2-5.4 [facility] Blood hemoglobin measurement (mass/volume)Ordered By: Ender Oates on 12-09-2022 Hemoglobin (Bld) [Mass/Vol] 12.9 g/dL 12.0-15.0 [facility] Blood platelet mean volumeOr dered By: Ender Oates on 12-09-2022 Platelet mean volume (Bld) [Entitic vol] 11.0 fL 6.2-12.0 [facility] CBCon 12-09-2022 Hemoglobin (Bld) [Mass/Vol] 15.7 g/dL 12 - 16 g/dL [facility] MCH 32.4 pG 27 - 34 pG [facility] MCHC 31.2 % Abnormal 32 - 36 % [facility] MCV (RBC) [Entitic vol] 104 fL Abnormal 80 - 100 fL [facility] MPV 11.0 % 7.3 - 11.1 % [facility] RBC (Bld) [#/Vol] 4.76 10*6/uL [facility] RDW-SD 56.9 [facility] CMP (EXTERNAL)on 12-09-2022 Alk Phos Total 74 U/L 45 - 117 U/L [facility] AST [Catalytic activity/Vol] 10 U/L 8 - 37 U/L [facility] Bili Total 0.40 mg/dL 0.2 - 1 mg/dL [facility] CO2 [Moles/Vol] 27 mmol/L 21 - 32 MEQ/L [facility] Creatinine [Mass/Vol] 0.74 mg/dL 0.6 - 1.3 MG/DL [facility] GFR AFR AMER 101 mL/MIN [facility] GFR/1.73 sq M.predicted among non-blacks MDRD (S/P/Bld) [Vol rate/Area] 84 mL/min/{1.73_m2} [facility] Glucose [Mass/Vol] 104 mg/dL 74 - 106 MG/DL [facility] Urea nitrogen [Mass/Vol] 26 mg/dL Abnormal 7 - 18 MG/D L [facility] Determination of erythrocyte mean corpuscular volume (MCV)Ordered By: Ender Oates on 12-09-2022 MCV (RBC) [Entitic vol] 104.0 fL 81-99 [facility] Laboratory - Chemistry and C hemistry - challengeOrdered By: Ender Oates on 12-09-2022 ALP [Catalytic activity/Vol] 74 U/L 45-117 [facility] ALT [Catalytic activity/Vol] 17 U/L 13-56 [facility] CO2 [Moles/Vol] 27.0 mmol/L 21.0-32.0 [facility] Globulin (S) [Mass/Vol] 3.6 g/dL 2.2-4.2 [facility] Urea nitrogen/Creatinine [Mass ratio] 23.3 mg/mg 10-20 [facility] Laboratory - Hematology and Cell countsOrdered By: Ender Oates on 12-09-2022 Erythrocyte distribution width (RBC) [Entitic vol] 56.9 fL 35.1-43.9 [facility] Erythrocyte distribution width (RBC) [Ratio] 14.8 % 11.6-14.6 [facility] MCH (RBC) [Entitic mass] 32.4 pg 27.0-32.0 [facility] MCHC Auto (RBC) [Mass/Vol]Or dered By: Ender Oates on 12-09-2022 MCHC (RBC) [Mass/Vol] 31.2 g/dL 32-36 [facility] No Panel InformationOrdered By: Ender Oates on 12-09-2022 Estimated GFR (MDRD) Amer 60 mL/min >60 [facility] Comment on above: GFR Calc Estimated GFR (MDRD) Non-Af Amer 50 mL/min >60 [facility] Comment on above: Non- GFR Calc Platelets bldOrdered By: Ronaldo Oates on 12-09-2022 Platelets (Bld) [#/Vol] 185 10*3/uL 150-450 [facility] Serum or plasma albumin tammie urement (mass/volume)Ordered By: Enedr Oates on 12-09-2022 Albumin [Mass/Vol] 2.7 g/dL 3.2-5.0 [facility] Serum or plasma albumin/glob ulin mass ratioOrdered By: Ender Oates on 12-09-2022 Albumin/Globulin [Mass ratio] 0.8 {ratio} 0.9-2.4 [facility] Serum or plasma calcium tammie urement (mass/volume)Ordered By: Ender Oates on 12-09-2022 Calcium [Mass/Vol] 8.3 mg/dL 8.5-10.1 [facility] Serum or plasma creatinine m easurement [...] 12-09-2022 Urea nitrogen [Mass/Vol] 27 mg/dL 7-18 [facility] Thin prep Papanicolaou smear with manual screeningOrdered By: Ender Oates on 12-09-2022 Thin prep Papanicolaou smear with manual screening 18 U/L 15-37 [facility] Thin prep Papanicolaou smear with manual screening 4 5-15 [facility] Basophil percentageOrdered B y: Ender Oates on 11-27-2022 Bilirubin [Mass/Vol] 0.30 mg/dL 0.20-1.00 [facility] Comment on above: For patients on eltr ombopag therapy, use of Dimension Bradshaw TBIL is not recommended. Chloride [Moles/Vol] 107 mmol/L 98-107 [facility] Glucose [Mass/Vol] 104 mg/dL 74-106 [facility] Comment on above: Fasting Glucose resu lt from 100 to 125 mg/dL suggests IMPAIRED HOMEOSTASIS per A.D.A. criteria. Potassium [Moles/Vol] 4.9 mmol/L 3.5-5.1 [facility] Comment on above: Slight Hemolysis, Re sult may be falsely increased. Protein [Mass/Vol] 7.4 g/dL 6.4-8.2 [facility] Sodium [Moles/Vol] 137 mmol/L 136-145 [facility] Laboratory - Chemistry and C hemistry - challengeOrdered By: Ender Oates on 11-27-2022 ALP [Catalytic activity/Vol] 93 U/L 45-117 [facility] ALT [Catalytic activity/Vol] 19 U/L 13-56 [facility] CO2 [Moles/Vol] 27.0 mmol/L 21.0-32.0 [facility] Globulin (S) [Mass/Vol] 4.4 g/dL 2.2-4.2 [facility] Natriuretic peptide B (Bld) [Mass/Vol] 64.0 pg/mL 0-100 [facility] Urea nitrogen/Creatinine [Mass ratio] 35.3 mg/mg 10-20 [facility] No Panel InformationOrdered By: Ender Oates on 11-27-2022 Estimated GFR (MDRD) Amer 101 mL/min >60 [facility] Comment on above: GFR Calc Estimated GFR (MDRD) Non-Af Amer 84 mL/min >60 [facility] Comment on above: Non- GFR Calc Thyroid Stimulating Hormone (TSH) 3.41 uIU/mL 0.358-3.74 [facility] Serum or plasma C reactive p rotein measurement (mass/volume)Ordered By: Ender Oates on 11-27-2022 CRP [Mass/Vol] mg/L 0.0-3.0 [facility] Comment on above: C-Reactive Protein ( CRP) provides useful information for thediagnosis, therapy and monitoring of inflammatory processesand associated diseases. For the evaluation of Relative Riskfor Cardiovascular Disease, a High Sensitivity CRP (HSCRP)should be ordered. Serum or plasma albumin tammie urement (mass/volume)Ordered By: Ender Oates on 11-27-2022 Albumin [Mass/Vol] 3.0 g/dL 3.2-5.0 [facility] Serum or plasma albumin/glob ulin mass ratioOrdered By: Ender Oates on 11-27-2022 Albumin/Globulin [Mass ratio] 0.7 {ratio} 0.9-2.4 [facility] Serum or plasma calcium tammie urement (mass/volume)Ordered By: Ender Oates on 11-27-2022 Calcium [Mass/Vol] 8.6 mg/dL 8.5-10.1 [facility] Serum or plasma creatinine m easurement [...] 11-27-2022 Urea nitrogen [Mass/Vol] 26 mg/dL 7-18 [facility] Thin prep Papanicolaou smear with manual screeningOrdered By: Ender Oates on 11-27-2022 Thin prep Papanicolaou smear with manual screening 20 U/L 15-37 [facility] Comment on above: Slight Hemolysis, Re sult may be falsely increased. Thin prep Papanicolaou smear with manual screening 3 5-15 [facility] Basic metabolic 1998 panelon 11-17-2022 Anion gap [Moles/Vol] 5 mmol/L 3 - 13 mmol/L [facility] Calcium [Mass/Vol] 8.5 mg/dL 8.4 - 10. 4 mg/dL [facility] Chloride [Moles/Vol] 105 mmol/L 98 - 10 7 mmol/L [facility] CO2 [Moles/Vol] 27 mmol/L 22 - 30 mmol/L [facility] Creatinine [Mass/Vol] 0.79 mg/dL 0.52 - 1.04 mg/dL [facility] GFR/1.73 sq M.predicted MDRD (S/P/Bld) [Vol rate/Area] 82.6 mL/min/{1.73_m2} - PINF [facility] Comment on above: Calculation based on the Chronic Kidney Disease Epidemiology Collaboration (CKD-EPI) equation refit without adjustment for race Glucose [Mass/Vol] 93 mg/dL 70 - 100 mg/dL [facility] Interpretation and review of laboratory results Abnormal [facility] Potassium [Moles/Vol] 4.5 mmol/L 3.5 - 5.1 mmol/L [facility] Sodium [Moles/Vol] 137 mmol/L 135 - 145 mmol/L [facility] Urea nitrogen [Mass/Vol] 32 mg/dL High 7 - 17 mg/d L [facility] CBC W Auto Differential pane l (Bld)Ordered By: Mychal Blackwood on 11-17-2022 Basophils (Bld) [#/Vol] 0.1 10*3/uL 0.0 - 0.2 10*3/uL [facility] Basophils/100 WBC (Bld) 1.6 % 0.0 - 2.0 % [facility] Eosinophils (Bld) [#/Vol] 0.1 10*3/uL 0.0 - 0.5 10*3/uL [facility] Eosinophils/100 WBC (Bld) 0.9 % Low 1.0 - 6.0 % [facility] Erythrocyte distribution width (RBC) [Ratio] 15.2 % High 11.5 - 14.5 % [facility] Hematocrit (Bld) [Volume fraction] 45.0 % 35.0 - 47.0 % [facility] Hemoglobin (Bld) [Mass/Vol] 15.3 g/dL 11.7 - 16.0 g/dL [facility] [employer] Interpretation and review of laboratory results Abnormal [facility] Lymphocytes (Bld) [#/Vol] 1.9 10*3/uL 1.0 - 4.3 10*3/uL [facility] Lymphocytes/100 WBC (Bld) 27.2 % 20.0 - 40.0 % [facility] [employer] MCH (RBC) [Entitic mass] 33.5 pg 26. 0 - 34.0 pg [facility] MCHC (RBC) [Mass/Vol] 34.1 % 32.0 - 36.0 % [facility] MCV (RBC) [Entitic vol] 98.3 fL High 80.0 - 98.0 fL [facility] [employer] Monocytes (Bld) [#/Vol] 0.6 10*3/uL 0.0 - 0.8 10*3/uL [facility] Monocytes/100 WBC (Bld) 8.6 % 2.0 - 10.0 % [facility] Neutrophils (Bld) [#/Vol] 4.4 10*3/uL 1.8 - 7.0 10*3/uL [facility] Neutrophils/100 WBC (Bld) 61.7 % 40.0 - 80.0 % [facility] Nucleated RBC/100 WBC (Bld) [Ratio] 0.0 % [facility] [employer] Platelet mean volume (Bld) [Entitic vol] 9.5 fL 7.4 - 12.4 fL [facility] [employer] Platelets (Bld) [#/Vol] 200 10*3/uL 140 - 440 10*3/uL [facility] RBC (Bld) [#/Vol] 4.58 10*6/uL 3.8 - 5.20 10*6/uL [facility] WBC (Bld) [#/Vol] 7.1 10*3/uL 3.6 - 10.7 10*3/uL [facility] CTA Chest vessels WO and [...] abdomen: No convincing evidence of acute process.. [facility] John Paul Boone MD - 11/17/2022 [...] Electronically Signed Date/Time: 11/17/2022 11:24 AM EDT [facility] [employer] Radiology Study observation (narrative) [facility] alth CTA Chest vessels WO and W c ontrast IVOrdered By: John Paul Boone on 11-17-2022 [employer] Work Phone: Laboratory - Chemistry and C hemistry - challengeon 11-17-2022 Troponin I.cardiac [Mass/Vol] ng/mL 0.000 - 0.034 ng/mL [facility] [employer] Natriuretic peptide B [Mass/ Vol]on 11-17-2022 Natriuretic peptide B (Bld) [Mass/Vol] 85 pg/mL <20 - 300 [facility] [employer] No Panel Informationon 11-17 No evidence of [...] Goodman DO on 11/17/2022 at 11:06 EDT. 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 [facility] [employer] Basophil percentageOrdered B y: Ender Oates on 11-10-2022 Bilirubin [Mass/Vol] 0.60 mg/dL 0.20-1.00 [facility] Comment on above: For patients on eltr ombopag therapy, use of Dimension [place]shaw TBIL is not recommended. Chloride [Moles/Vol] 106 mmol/L 98-107 [facility] Glucose [Mass/Vol] 95 mg/dL 74-106 [facility] Potassium [Moles/Vol] 5.5 mmol/L 3.5-5.1 [facility] Protein [Mass/Vol] 7.3 g/dL 6.4-8.2 [facility] Sodium [Moles/Vol] 140 mmol/L 136-145 [facility] WBC (Bld) [#/Vol] 9.6 10*3/uL 4.4-11.0 [facility] Blood erythrocytes count (nu mber/volume)Ordered By: Ender Oates on 11-10-2022 RBC (Bld) [#/Vol] 4.76 10*6/uL 4.2-5.4 [facility] Blood hemoglobin measurement (mass/volume)Ordered By: Ender Oates on 11-10-2022 Hemoglobin (Bld) [Mass/Vol] 15.7 g/dL 12.0-15.0 [facility] Blood platelet mean volumeOr dered By: Ender Oates on 11-10-2022 Platelet mean volume (Bld) [Entitic vol] 11.7 fL 6.2-12.0 [facility] Determination of erythrocyte mean corpuscular volume (MCV)Ordered By: Ender Oates on 11-10-2022 MCV (RBC) [Entitic vol] 104.0 fL 81-99 [facility] Hematocrit Auto (Bld) [Volum e fraction]Ordered By: Ender Oates on 11-10-2022 Hematocrit (Bld) [Volume fraction] 49.5 % 37-47 [facility] Laboratory - Chemistry and C hemistry - challengeOrdered By: Ender Oates on 11-10-2022 ALP [Catalytic activity/Vol] 91 U/L 45-117 [facility] ALT [Catalytic activity/Vol] 17 U/L 13-56 [facility] CO2 [Moles/Vol] 24.0 mmol/L 21.0-32.0 [facility] Globulin (S) [Mass/Vol] 3.9 g/dL 2.2-4.2 [facility] Urea nitrogen/Creatinine [Mass ratio] 34.2 mg/mg 10-20 [facility] Laboratory - Hematology and Cell countsOrdered By: Ender Oates on 11-10-2022 Erythrocyte distribution width (RBC) [Entitic vol] 57.3 fL 35.1-43.9 [facility] Erythrocyte distribution width (RBC) [Ratio] 14.7 % 11.6-14.6 [facility] MCH (RBC) [Entitic mass] 33.0 pg 27.0-32.0 [facility] MCHC Auto (RBC) [Mass/Vol]Or dered By: Ender Oates on 11-10-2022 MCHC (RBC) [Mass/Vol] 31.7 g/dL 32-36 [facility] No Panel InformationOrdered By: Ender Oates on 11-10-2022 Estimated GFR (MDRD) Amer 72 mL/min >60 [facility] Comment on above: GFR Calc Estimated GFR (MDRD) Non-Af Amer 59 mL/min >60 [facility] Comment on above: Non- GFR Calc Platelets bldOrdered By: Ronaldo Oates on 11-10-2022 Platelets (Bld) [#/Vol] 206 10*3/uL 150-450 [facility] Serum or plasma albumin tammie urement (mass/volume)Ordered By: Ender Oates on 11-10-2022 Albumin [Mass/Vol] 3.4 g/dL 3.2-5.0 [facility] Serum or plasma albumin/glob ulin mass ratioOrdered By: Ender Oates on 11-10-2022 Albumin/Globulin [Mass ratio] 0.9 {ratio} 0.9-2.4 [facility] Serum or plasma calcium tammie urement (mass/volume)Ordered By: Ender Oates on 11-10-2022 Calcium [Mass/Vol] 9.2 mg/dL 8.5-10.1 [facility] Serum or plasma creatinine m easurement [...] 11-10-2022 Urea nitrogen [Mass/Vol] 34 mg/dL 7-18 [facility] Thin prep Papanicolaou smear with manual screeningOrdered By: Ender Oates on 11-10-2022 Thin prep Papanicolaou smear with manual screening 20 U/L 15-37 [facility] Thin prep Papanicolaou smear with manual screening 10 5-15 [facility] Automated blood hematocrit ( percentage)Ordered By: Ender Oates on 10-06-2022 Hematocrit (Bld) [Volume fraction] 49.3 % 37-47 [facility] Basophil percentageOrdered B y: Ender Oates on 10-06-2022 Chloride [Moles/Vol] 108 mmol/L 98-107 [facility] Glucose [Mass/Vol] 156 mg/dL 74-106 [facility] Comment on above: Fasting Glucose resu lt greater than or equal to 126 mg/dL suggests DIABETES MELLITUS per A.D.A. criteria. Potassium [Moles/Vol] 4.3 mmol/L 3.5-5.1 [facility] Protein [Mass/Vol] 7.9 g/dL 6.4-8.2 [facility] Sodium [Moles/Vol] 139 mmol/L 136-145 [facility] WBC (Bld) [#/Vol] 8.1 10*3/uL 4.4-11.0 [facility] Bilirubin [Mass/Vol] 0.70 mg/dL 0.20-1.00 [facility] Comment on above: For patients on eltr ombopag therapy, use of Dimension [place]shaw TBIL is not recommended. Blood erythrocytes count (nu mber/volume)Ordered By: Ender Oates on 10-06-2022 RBC (Bld) [#/Vol] 4.89 10*6/uL 4.2-5.4 [facility] Blood hemoglobin measurement (mass/volume)Ordered By: Ender Oates on 10-06-2022 Hemoglobin (Bld) [Mass/Vol] 15.9 g/dL 12.0-15.0 [facility] Blood platelet mean volumeOr dered By: Ender Oates on 10-06-2022 Platelet mean volume (Bld) [Entitic vol] 11.6 fL 6.2-12.0 [facility] CBCon 10-06-2022 Erythrocyte distribution width (RBC) [Ratio] 14.8 % 11.7 - 15.0 % [facility] Erythrocyte distribution width (RBC) [Ratio] 14.7 % 11.7 - 15.0 % [facility] Hematocrit (Bld) [Volume fraction] 43.5 % Abnormal 33 - 42 % [facility] Hematocrit (Bld) [Volume fraction] 45.6 % 35 - 47 % [facility] Hemoglobin (Bld) [Mass/Vol] 13.9 g/dL 12 - 16 g/dL [facility] Hemoglobin (Bld) [Mass/Vol] 14.1 g/dL 12 - 16 g/dL [facility] MCH 31.7 pG 27 - 34 pG [facility] MCH (RBC) [Entitic mass] 32.6 pg 25. 4 - 34.6 pg [facility] MCHC 32 % 32 - 36 % [facility] MCHC 30.9 % Abnormal 32 - 36 % [facility] MCV (RBC) [Entitic vol] 101.9 fL Abnormal 80 - 100 fL [facility] MCV (RBC) [Entitic vol] 102.5 fL Abnormal 80 - 100 fL [facility] MPV 11.2 % Abnormal 7.3 - 11.1 % [facility] MPV 10.7 % 7.3 - 11.1 % [facility] Platelets (Bld) [#/Vol] 198 10*3/uL 150 - 400 k/uL [facility] Platelets (Bld) [#/Vol] 222 10*3/uL 150 - 400 k/uL [facility] RBC (Bld) [#/Vol] 4.27 10*6/uL [facility] RBC (Bld) [#/Vol] 4.45 10*6/uL 4.2 - 5.4 M/uL [facility] RDW-SD 55.7 [facility] RDW-SD 56 [facility] WBC (Bld) [#/Vol] 7.7 10*3/uL 4.0 - 11.0 K/uL [facility] WBC (Bld) [#/Vol] 8.2 10*3/uL 4.0 - 11.0 K/uL [facility] CMP (EXTERNAL)on 10-06-2022 Albumin [Mass/Vol] 3.1 g/dL Abnormal 3.2 - 4.6 gm/dL [facility] Alk Phos Total 74 U/L 45 - 117 U/L [facility] Alk Phos Total 61 U/L 45 - 117 U/L [facility] [facility] Total 76 U/L 45 - 117 U/L [facility] ALT [Catalytic activity/Vol] 18 U/L 12 - 78 U/L [facility] ALT [Catalytic activity/Vol] 20 U/L 12 - 78 U/L [facility] AST [Catalytic activity/Vol] 19 U/L 8 - 37 U/L [facility] Bili Total 0.70 mg/dL 0.2 - 1 mg/dL [facility] Calcium [Mass/Vol] 8.7 mg/dL 8.5 - 10. 1 mg/dL [facility] Calcium [Mass/Vol] 8.8 mg/dL 8.5 - 10. 1 mg/dL [facility] Chloride [Moles/Vol] 104 mmol/L 98 - 10 7 MEQ/L [facility] Chloride [Moles/Vol] 109 mmol/L Abnormal 98 - 10 7 MEQ/L [facility] CO2 [Moles/Vol] 26 mmol/L 21 - 32 MEQ/L [facility] CO2 [Moles/Vol] 28 mmol/L 21 - 32 MEQ/L [facility] CO2 [Moles/Vol] 23 mmol/L 21 - 32 MEQ/L [facility] Creatinine [Mass/Vol] 0.76 mg/dL 0.6 - 1.3 MG/DL [facility] GFR AFR AMER 98 mL/MIN [facility] GFR AFR AMER 91 mL/MIN [facility] GFR/1.73 sq M.predicted among non-blacks MDRD (S/P/Bld) [Vol rate/Area] 81 mL/min/{1.73_m2} [facility]/1.73 sq M.predicted among non-blacks MDRD (S/P/Bld) [Vol rate/Area] 75 mL/min/{1.73_m2} [facility] Globulin (S) [Mass/Vol] 3.8 g/dL [facility] Glucose [Mass/Vol] 79 mg/dL 74 - 106 MG/DL [facility] MCH 32.5 pG 27 - 34 pG [facility] MCHC 32.3 % 32 - 36 % [facility] MPV 11.6 % Abnormal 7.3 - 11.1 % [facility] Potassium [Moles/Vol] 4.5 mmol/L 3.5 - 5.1 mmol/L [facility] Potassium [Moles/Vol] 3.8 mmol/L 3.5 - 5.1 mmol/L [facility] Protein [Mass/Vol] 6.9 g/dL 6.4 - 8.2 gm/dL [facility] Protein [Mass/Vol] 6.5 g/dL 6.4 - 8.2 gm/dL [facility] RDW-SD 55.8 [facility] Sodium [Moles/Vol] 138 mmol/L 136 - 145 mmol/L [facility] Urea nitrogen [Mass/Vol] 23 mg/dL Abnormal 7 - 18 MG/D L [facility] Urea nitrogen/Creatinine [Mass ratio] 34.3 mg/mg Abnormal 9 - 20 [facility] Determination of erythrocyte mean corpuscular volume (MCV)Ordered By: Ender Oates on 10-06-2022 MCV (RBC) [Entitic vol] 100.8 fL 81-99 [facility] - Chemistry and C hemistry - challengeOrdered By: Ender Oates on 10-06-2022 ALT [Catalytic activity/Vol] 22 U/L 13-56 [facility] Urea nitrogen/Creatinine [Mass ratio] 24.7 mg/mg 10-20 [facility] ALP [Catalytic activity/Vol] 76 U/L 45-117 [facility] CO2 [Moles/Vol] 23.0 mmol/L 21.0-32.0 [facility] Globulin (S) [Mass/Vol] 4.4 g/dL 2.2-4.2 [facility] - Chemistry and C hemistry - challengeon 10-06-2022 Anion gap [Moles/Vol] 8 mmol/L [facility] AST [Catalytic activity/Vol] 25 U/L 8 - 37 U/L [facility] Laboratory - Hematology and Cell countsOrdered By: Ender Oates on 10-06-2022 Erythrocyte distribution width (RBC) [Ratio] 14.9 % 11.6-14.6 [facility] Erythrocyte distribution width (RBC) [Entitic vol] 55.8 fL 35.1-43.9 [facility] MCH (RBC) [Entitic mass] 32.5 pg 27.0-32.0 [facility] MCHC Auto (RBC) [Mass/Vol]Or dered By: Ender Oates on 10-06-2022 MCHC (RBC) [Mass/Vol] 32.3 g/dL 32-36 [facility] No Panel Informationon 10-06 Bili Total 0.40 mg/dL 0.2 - 1 mg/dL [facility] No Panel InformationOrdered By: Ender Oates on 10-06-2022 Estimated GFR (MDRD) Amer 91 mL/min >60 [facility] Comment on above: GFR Calc Estimated GFR (MDRD) Non-Af Amer 75 mL/min >60 [facility] Comment on above: Non- GFR Calc Platelets bldOrdered By: Ronaldo Oates on 10-06-2022 Platelets (Bld) [#/Vol] 202 10*3/uL 150-450 [facility] Serum or plasma albumin tammie urement (mass/volume)Ordered By: Ender Oates on 10-06-2022 Albumin [Mass/Vol] 3.5 g/dL 3.2-5.0 [facility] Serum or plasma albumin/glob ulin mass ratioOrdered By: Ender Oates on 10-06-2022 Albumin/Globulin [Mass ratio] 0.8 {ratio} 0.9-2.4 [facility] Serum or plasma calcium tammie urement (mass/volume)Ordered By: Ender Oates on 10-06-2022 Calcium [Mass/Vol] 9.3 mg/dL 8.5-10.1 [facility] Serum or plasma creatinine m easurement [...] 10-06-2022 Urea nitrogen [Mass/Vol] 20 mg/dL 7-18 [facility] Thin prep Papanicolaou smear with manual screeningOrdered By: Ender Oates on 10-06-2022 Thin prep Papanicolaou smear with manual screening 25 U/L 15-37 [facility] Thin prep Papanicolaou smear with manual screening 8 5-15 [facility] Basophil percentageOrdered B y: Ender Oates on 09-08-2022 Bilirubin [Mass/Vol] 0.40 mg/dL 0.20-1.00 [facility] Comment on above: For patients on eltr ombopag therapy, use of Dimension Bradshaw TBIL is not recommended. Chloride [Moles/Vol] 109 mmol/L 98-107 [facility] Glucose [Mass/Vol] 116 mg/dL 74-106 [facility] Comment on above: Fasting Glucose resu lt from 100 to 125 mg/dL suggests IMPAIRED HOMEOSTASIS per A.D.A. criteria. Potassium [Moles/Vol] 3.8 mmol/L 3.5-5.1 [facility] Protein [Mass/Vol] 6.5 g/dL 6.4-8.2 [facility] Sodium [Moles/Vol] 139 mmol/L 136-145 [facility] WBC (Bld) [#/Vol] 8.2 10*3/uL 4.4-11.0 [facility] Blood erythrocytes count (nu mber/volume)Ordered By: Ender Oates on 09-08-2022 RBC (Bld) [#/Vol] 4.45 10*6/uL 4.2-5.4 [facility] Blood hemoglobin measurement (mass/volume)Ordered By: Ender Oates on 09-08-2022 Hemoglobin (Bld) [Mass/Vol] 14.1 g/dL 12.0-15.0 [facility] Blood platelet mean volumeOr dered By: Ender Oates on 09-08-2022 Platelet mean volume (Bld) [Entitic vol] 10.7 fL 6.2-12.0 [facility] Determination of erythrocyte mean corpuscular volume (MCV)Ordered By: Ender Oates on 09-08-2022 MCV (RBC) [Entitic vol] 102.5 fL 81-99 [facility] Hematocrit Auto (Bld) [Volum e fraction]Ordered By: Ender Oates on 09-08-2022 Hematocrit (Bld) [Volume fraction] 45.6 % 37-47 [facility] Laboratory - Chemistry and C hemistry - challengeOrdered By: Ender Oates on 09-08-2022 ALP [Catalytic activity/Vol] 61 U/L 45-117 [facility] ALT [Catalytic activity/Vol] 20 U/L 13-56 [facility] CO2 [Moles/Vol] 28.0 mmol/L 21.0-32.0 [facility] Globulin (S) [Mass/Vol] 3.6 g/dL 2.2-4.2 [facility] Urea nitrogen/Creatinine [Mass ratio] 30.3 mg/mg 10-20 [facility] Laboratory - Hematology and Cell countsOrdered By: Ender Oates on 09-08-2022 Erythrocyte distribution width (RBC) [Entitic vol] 56.0 fL 35.1-43.9 [facility] Erythrocyte distribution width (RBC) [Ratio] 14.7 % 11.6-14.6 [facility] MCH (RBC) [Entitic mass] 31.7 pg 27.0-32.0 [facility] MCHC Auto (RBC) [Mass/Vol]Or dered By: Ender Oates on 09-08-2022 MCHC (RBC) [Mass/Vol] 30.9 g/dL 32-36 [facility] No Panel InformationOrdered By: Ender Oates on 09-08-2022 Estimated GFR (MDRD) Amer 98 mL/min >60 [facility] Comment on above: GFR Calc Estimated GFR (MDRD) Non-Af Amer 81 mL/min >60 [facility] Comment on above: Non- GFR Calc Platelets bldOrdered By: Ronaldo Oates on 09-08-2022 Platelets (Bld) [#/Vol] 222 10*3/uL 150-450 [facility] Serum or plasma albumin tammie urement (mass/volume)Ordered By: Ender Oates on 09-08-2022 Albumin [Mass/Vol] 2.9 g/dL 3.2-5.0 [facility] Serum or plasma albumin/glob ulin mass ratioOrdered By: Ender Oates on 09-08-2022 Albumin/Globulin [Mass ratio] 0.8 {ratio} 0.9-2.4 [facility] Serum or plasma calcium tammie urement (mass/volume)Ordered By: Ender Oates on 09-08-2022 Calcium [Mass/Vol] 8.8 mg/dL 8.5-10.1 [facility] Serum or plasma creatinine m easurement [...] 09-08-2022 Urea nitrogen [Mass/Vol] 23 mg/dL 7-18 [facility] Thin prep Papanicolaou smear with manual screeningOrdered By: Ender Oates on 09-08-2022 Thin prep Papanicolaou smear with manual screening 19 U/L 15-37 [facility] Thin prep Papanicolaou smear with manual screening 2 5-15 [facility] Basophil percentageOrdered B y: Ender Oates on 08-28-2022 WBC (Bld) [#/Vol] 7.7 10*3/uL 4.4-11.0 [facility] Blood erythrocytes count (nu mber/volume)Ordered By: Ender Oates on 08-28-2022 RBC (Bld) [#/Vol] 4.27 10*6/uL 4.2-5.4 [facility] Blood hemoglobin measurement (mass/volume)Ordered By: Ender Oates on 08-28-2022 Hemoglobin (Bld) [Mass/Vol] 13.9 g/dL 12.0-15.0 [facility] Blood platelet mean volumeOr dered By: Ender Oates on 08-28-2022 Platelet mean volume (Bld) [Entitic vol] 11.2 fL 6.2-12.0 [facility] Determination of erythrocyte mean corpuscular volume (MCV)Ordered By: Ender Oates on 08-28-2022 MCV (RBC) [Entitic vol] 101.9 fL 81-99 [facility] Hematocrit Auto (Bld) [Volum e fraction]Ordered By: Ender Oates on 08-28-2022 Hematocrit (Bld) [Volume fraction] 43.5 % 37-47 [facility] Laboratory - Hematology and Cell countsOrdered By: Ender Oates on 08-28-2022 Erythrocyte distribution width (RBC) [Entitic vol] 55.7 fL 35.1-43.9 [facility] Erythrocyte distribution width (RBC) [Ratio] 14.8 % 11.6-14.6 [facility] MCH (RBC) [Entitic mass] 32.6 pg 27.0-32.0 [facility] MCHC Auto (RBC) [Mass/Vol]Or dered By: Ender Oates on 08-28-2022 MCHC (RBC) [Mass/Vol] 32.0 g/dL 32-36 [facility] Platelets bldOrdered By: Ronaldo Oates on 08-28-2022 Platelets (Bld) [#/Vol] 198 10*3/uL 150-450 [facility] Basophil percentageOrdered B y: Ender Oates on 08-11-2022 Bilirubin [Mass/Vol] 0.40 mg/dL 0.20-1.00 [facility] Comment on above: For patients on eltr ombopag therapy, use of Dimension Bradshaw TBIL is not recommended. Chloride [Moles/Vol] 104 mmol/L 98-107 [facility] Glucose [Mass/Vol] 79 mg/dL 74-106 [facility] Potassium [Moles/Vol] 4.5 mmol/L 3.5-5.1 [facility] Protein [Mass/Vol] 6.9 g/dL 6.4-8.2 [facility] Sodium [Moles/Vol] 138 mmol/L 136-145 [facility] WBC (Bld) [#/Vol] 7.5 10*3/uL 4.4-11.0 [facility] Blood erythrocytes count (nu mber/volume)Ordered By: Ender Oates on 08-11-2022 RBC (Bld) [#/Vol] 4.57 10*6/uL 4.2-5.4 [facility] Blood hemoglobin measurement (mass/volume)Ordered By: Ender Oates on 08-11-2022 Hemoglobin (Bld) [Mass/Vol] 14.6 g/dL 12.0-15.0 [facility] Blood platelet mean volumeOr dered By: Ender Oates on 08-11-2022 Platelet mean volume (Bld) [Entitic vol] 11.5 fL 6.2-12.0 [facility] Determination of erythrocyte mean corpuscular volume (MCV)Ordered By: Ender Oates on 08-11-2022 MCV (RBC) [Entitic vol] 102.0 fL 81-99 [facility] Hematocrit Auto (Bld) [Volum e fraction]Ordered By: Ender Oates on 08-11-2022 Hematocrit (Bld) [Volume fraction] 46.6 % 37-47 [facility] Laboratory - Chemistry and C hemistry - challengeOrdered By: Ender Oates on 08-11-2022 ALP [Catalytic activity/Vol] 74 U/L 45-117 [facility] ALT [Catalytic activity/Vol] 18 U/L 13-56 [facility] CO2 [Moles/Vol] 26.0 mmol/L 21.0-32.0 [facility] Globulin (S) [Mass/Vol] 3.8 g/dL 2.2-4.2 [facility] Urea nitrogen/Creatinine [Mass ratio] 34.3 mg/mg 10-20 [facility] Laboratory - Hematology and Cell countsOrdered By: Ender Oates on 08-11-2022 Erythrocyte distribution width (RBC) [Entitic vol] 55.5 fL 35.1-43.9 [facility] Erythrocyte distribution width (RBC) [Ratio] 14.6 % 11.6-14.6 [facility] MCH (RBC) [Entitic mass] 31.9 pg 27.0-32.0 [facility] MCHC Auto (RBC) [Mass/Vol]Or dered By: Ender Oates on 08-11-2022 MCHC (RBC) [Mass/Vol] 31.3 g/dL 32-36 [facility] No Panel InformationOrdered By: Ender Oates on 08-11-2022 Estimated GFR (MDRD) Amer 77 mL/min >60 [facility] Comment on above: GFR Calc Estimated GFR (MDRD) Non-Af Amer 64 mL/min >60 [facility] Comment on above: Non- GFR Calc Platelets bldOrdered By: Ronaldo Oates on 08-11-2022 Platelets (Bld) [#/Vol] 193 10*3/uL 150-450 [facility] Serum or plasma albumin tammie urement (mass/volume)Ordered By: Ender Oates on 08-11-2022 Albumin [Mass/Vol] 3.1 g/dL 3.2-5.0 [facility] Serum or plasma albumin/glob ulin mass ratioOrdered By: Ender Oates on 08-11-2022 Albumin/Globulin [Mass ratio] 0.8 {ratio} 0.9-2.4 [facility] Serum or plasma calcium tammie urement (mass/volume)Ordered By: Ender Oates on 08-11-2022 Calcium [Mass/Vol] 8.7 mg/dL 8.5-10.1 [facility] Serum or plasma creatinine m easurement [...] 08-11-2022 Urea nitrogen [Mass/Vol] 32 mg/dL 7-18 [facility] Thin prep Papanicolaou smear with manual screeningOrdered By: Ender Oates on 08-11-2022 Thin prep Papanicolaou smear with manual screening 25 U/L 15-37 [facility] Thin prep Papanicolaou smear with manual screening 8 5-15 [facility] Basophil percentageOrdered B y: Ender Oates on 08-08-2022 Cholesterol [Mass/Vol] 142 mg/dL <200 [facility] Comment on above: <200 mg/dL Desirable 200-240 mg/dL Borderline >240 mg/dL High Risk Triglyceride [Mass/Vol] 145 mg/dL <199 [facility] Comment on above: The drugs N-Acetylcy steine and Metamizole may falsely depress this assay.Serum Triglycerides Reference Interval Normal <150 mg/dL Borderline high 150 - 199 mg/dL High 200 - 499 mg/dL Very High > or = 500 mg/dL Serum or plasma cholesterol in HDL measurement (mass/volume)Ordered By: Ender Oates on 08-08-2022 Cholesterol in HDL [Mass/Vol] 60 mg/dL >40 [facility] Comment on above: The drugs N-Acetylcy steine and Metamizole may falsely depress this assay. Reference Range HDL <40 mg/dL Low HDL Cholesterol HDL >or= 60 mg/dL High HDL Cholesterol Serum or plasma cholesterol in VLDL measurement (mass/volume)Ordered By: Ender Oates on 08-08-2022 Cholesterol in VLDL [Mass/Vol] 29 mg/dL 5-40 [facility] Serum or plasma low density lipoprotein (LDL) cholesterol measurement (mass/volume)Ordered By: Ender Oates on 08-08-2022 Cholesterol in LDL [Mass/Vol] 53 mg/dL 0-130 [facility] Basophil percentageOrdered B y: Ender Oates on 07-14-2022 Bilirubin [Mass/Vol] 0.40 mg/dL 0.20-1.00 [facility] Comment on above: For patients on eltr ombopag therapy, use of Dimension [place]shaw TBIL is not recommended. Chloride [Moles/Vol] 109 mmol/L 98-107 [facility] Glucose [Mass/Vol] 90 mg/dL 74-106 [facility] Potassium [Moles/Vol] 4.4 mmol/L 3.5-5.1 [facility] Protein [Mass/Vol] 6.7 g/dL 6.4-8.2 [facility] Sodium [Moles/Vol] 143 mmol/L 136-145 [facility] WBC (Bld) [#/Vol] 7.2 10*3/uL 4.4-11.0 [facility] Blood erythrocytes count (nu mber/volume)Ordered By: Ender Oates on 07-14-2022 RBC (Bld) [#/Vol] 4.48 10*6/uL 4.2-5.4 [facility] Blood hemoglobin measurement (mass/volume)Ordered By: Ender Oates on 07-14-2022 Hemoglobin (Bld) [Mass/Vol] 14.1 g/dL 12.0-15.0 [facility] Blood platelet mean volumeOr dered By: Ender Oates on 07-14-2022 Platelet mean volume (Bld) [Entitic vol] 11.5 fL 6.2-12.0 [facility] Determination of erythrocyte mean corpuscular volume (MCV)Ordered By: Ender Oates on 07-14-2022 MCV (RBC) [Entitic vol] 102.2 fL 81-99 [facility] Hematocrit Auto (Bld) [Volum e fraction]Ordered By: Ender Oates on 07-14-2022 Hematocrit (Bld) [Volume fraction] 45.8 % 37-47 [facility] Laboratory - Chemistry and C hemistry - challengeOrdered By: Ender Oates on 07-14-2022 ALP [Catalytic activity/Vol] 84 U/L 45-117 [facility] ALT [Catalytic activity/Vol] 16 U/L 13-56 [facility] CO2 [Moles/Vol] 32.0 mmol/L 21.0-32.0 [facility] Globulin (S) [Mass/Vol] 3.9 g/dL 2.2-4.2 [facility] Urea nitrogen/Creatinine [Mass ratio] 38.6 mg/mg 10-20 [facility] Laboratory - Hematology and Cell countsOrdered By: Ender Oates on 07-14-2022 Erythrocyte distribution width (RBC) [Entitic vol] 54.3 fL 35.1-43.9 [facility] Erythrocyte distribution width (RBC) [Ratio] 14.5 % 11.6-14.6 [facility] MCH (RBC) [Entitic mass] 31.5 pg 27.0-32.0 [facility] MCHC Auto (RBC) [Mass/Vol]Or dered By: Ender Oates on 07-14-2022 MCHC (RBC) [Mass/Vol] 30.8 g/dL 32-36 [facility] No Panel InformationOrdered By: Ender Oates on 07-14-2022 Estimated GFR (MDRD) Amer 99 mL/min >60 [facility] Comment on above: GFR Calc Estimated GFR (MDRD) Non-Af Amer 82 mL/min >60 [facility] Comment on above: Non- GFR Calc Platelets bldOrdered By: Ronaldo Oates on 07-14-2022 Platelets (Bld) [#/Vol] 186 10*3/uL 150-450 [facility] Serum or plasma albumin tammie urement (mass/volume)Ordered By: Ender Oates on 07-14-2022 Albumin [Mass/Vol] 2.8 g/dL 3.2-5.0 [facility] Serum or plasma albumin/glob ulin mass ratioOrdered By: Ender Oates on 07-14-2022 Albumin/Globulin [Mass ratio] 0.7 {ratio} 0.9-2.4 [facility] Serum or plasma calcium tammie urement (mass/volume)Ordered By: Ender Oates on 07-14-2022 Calcium [Mass/Vol] 8.8 mg/dL 8.5-10.1 [facility] Serum or plasma creatinine m easurement [...] 07-14-2022 Urea nitrogen [Mass/Vol] 29 mg/dL 7-18 [facility] Thin prep Papanicolaou smear with manual screeningOrdered By: Enderromy Oates on 07-14-2022 Thin prep Papanicolaou smear with manual screening 17 U/L 15-37 [facility] Thin prep Papanicolaou smear with manual screening 2 5-[address] [facility] [address] KNEE WO IVCON LTon 2022 CT KNEE WO IVCON LT * * *Final Report* * * DATE OF EXAM: Jun 12 2022 3:43PM [facility] [id number] - CT KNEE WO IVCON LT [...] abnormality. IMPRESSION: Intact TKA. No acute abnormality. Senior Examiner: DIAZ Transcribe Date/Time: Jun 16 2022 8:28A Dictated by : DEJA LIU MD This examination was interpreted and the report reviewed and electronically signed by: DEJA LIU MD on Jun 16 2022 8:31AM EST [id number] N Normal [facility] Basophil percentageOrdered B y: Ender Gracie on 06-09-2022 Bilirubin [Mass/Vol] 0.40 mg/dL 0.20-1.00 [facility] Comment on above: For patients on eltr ombopag therapy, use of Dimension [place]shaw TBIL is not recommended. Chloride [Moles/Vol] 106 mmol/L 98-107 [facility] Glucose [Mass/Vol] 90 mg/dL 74-106 [facility] Potassium [Moles/Vol] 4.1 mmol/L 3.5-5.1 [facility] Protein [Mass/Vol] 6.5 g/dL 6.4-8.2 [facility] Sodium [Moles/Vol] 143 mmol/L 136-145 [facility] WBC (Bld) [#/Vol] 6.4 10*3/uL 4.4-11.0 [facility] Blood erythrocytes count (nu mber/volume)Ordered By: Ender Oates on 06-09-2022 RBC (Bld) [#/Vol] 4.36 10*6/uL 4.2-5.4 [facility] Blood hemoglobin measurement (mass/volume)Ordered By: Ender Oates on 06-09-2022 Hemoglobin (Bld) [Mass/Vol] 14.4 g/dL 12.0-15.0 [facility] Blood platelet mean volumeOr dered By: Ender Oates on 06-09-2022 Platelet mean volume (Bld) [Entitic vol] 11.1 fL 6.2-12.0 [facility] Determination of erythrocyte mean corpuscular volume (MCV)Ordered By: Ender Oates on 06-09-2022 MCV (RBC) [Entitic vol] 102.3 fL 81-99 [facility] Hematocrit Auto (Bld) [Volum e fraction]Ordered By: Ender Oates on 06-09-2022 Hematocrit (Bld) [Volume fraction] 44.6 % 37-47 [facility] Laboratory - Chemistry and C hemistry - challengeOrdered By: Ender Oates on 06-09-2022 ALP [Catalytic activity/Vol] 67 U/L 45-117 [facility] ALT [Catalytic activity/Vol] 14 U/L 13-56 [facility] CO2 [Moles/Vol] 29.0 mmol/L 21.0-32.0 [facility] Globulin (S) [Mass/Vol] 3.7 g/dL 2.2-4.2 [facility] Urea nitrogen/Creatinine [Mass ratio] 31.0 mg/mg 10-20 [facility] Laboratory - Hematology and Cell countsOrdered By: Ender Oates on 06-09-2022 Erythrocyte distribution width (RBC) [Entitic vol] 56.1 fL 35.1-43.9 [facility] Erythrocyte distribution width (RBC) [Ratio] 14.9 % 11.6-14.6 [facility] MCH (RBC) [Entitic mass] 33.0 pg 27.0-32.0 [facility] MCHC Auto (RBC) [Mass/Vol]Or dered By: Ender Oates on 06-09-2022 MCHC (RBC) [Mass/Vol] 32.3 g/dL 32-36 [facility] No Panel InformationOrdered By: Ender Oates on 06-09-2022 Estimated GFR (MDRD) Amer 106 mL/min >60 [facility] Comment on above: GFR Calc Estimated GFR (MDRD) Non-Af Amer 88 mL/min >60 [facility] Comment on above: Non- GFR Calc Platelets bldOrdered By: Ronaldo Oates on 06-09-2022 Platelets (Bld) [#/Vol] 183 10*3/uL 150-450 [facility] Serum or plasma albumin tammie urement (mass/volume)Ordered By: Ender Oates on 06-09-2022 Albumin [Mass/Vol] 2.8 g/dL 3.2-5.0 [facility] Serum or plasma albumin/glob ulin mass ratioOrdered By: Ender Oates on 06-09-2022 Albumin/Globulin [Mass ratio] 0.8 {ratio} 0.9-2.4 [facility] Serum or plasma calcium tammie urement (mass/volume)Ordered By: Ender Oates on 06-09-2022 Calcium [Mass/Vol] 8.6 mg/dL 8.5-10.1 [facility] Serum or plasma creatinine m easurement [...] 06-09-2022 Urea nitrogen [Mass/Vol] 22 mg/dL 7-18 [facility] Thin prep Papanicolaou smear with manual screeningOrdered By: Ender Oates on 06-09-2022 Thin prep Papanicolaou smear with manual screening 13 U/L 15-37 [facility] Thin prep Papanicolaou smear with manual screening 8 5-15 [facility] Basophil percentageOrdered B y: Ender Oates on 05-22-2022 WBC (Bld) [#/Vol] 7.6 10*3/uL 4.4-11.0 [facility] Blood erythrocytes count (nu mber/volume)Ordered By: Ender Oates on 05-22-2022 RBC (Bld) [#/Vol] 4.63 10*6/uL 4.2-5.4 [facility] Blood hemoglobin measurement (mass/volume)Ordered By: Ender Oates on 05-22-2022 Hemoglobin (Bld) [Mass/Vol] 14.7 g/dL 12.0-15.0 [facility] Blood platelet mean volumeOr dered By: Ender Oates on 05-22-2022 Platelet mean volume (Bld) [Entitic vol] 11.7 fL 6.2-12.0 [facility] Determination of erythrocyte mean corpuscular volume (MCV)Ordered By: Ender Oates on 05-22-2022 MCV (RBC) [Entitic vol] 102.8 fL 81-99 [facility] Erythrocyte sedimentation ra teOrdered By: Ender Oates on 05-22-2022 ESR (Bld) [Velocity] 7 mm/h 0-30 [facility] Hematocrit Auto (Bld) [Volum e fraction]Ordered By: Ender Oates on 05-22-2022 Hematocrit (Bld) [Volume fraction] 47.6 % 37-47 [facility] - Hematology and Cell countsOrdered By: Enedr Oates on 05-22-2022 Erythrocyte distribution width (RBC) [Entitic vol] 57.1 fL 35.1-43.9 [facility] Erythrocyte distribution width (RBC) [Ratio] 14.8 % 11.6-14.6 [facility] MCH (RBC) [Entitic mass] 31.7 pg 27.0-32.0 [facility] MCHC Auto (RBC) [Mass/Vol]Or dered By: Ender Oates on 05-22-2022 MCHC (RBC) [Mass/Vol] 30.9 g/dL 32-36 [facility] Platelets bldOrdered By: Ronaldo javier Gracie on 05-22-2022 Platelets (Bld) [#/Vol] 179 10*3/uL 150-450 [facility] Serum or plasma C reactive p rotein measurement (mass/volume)Ordered By: Ender Oates on 05-22-2022 CRP [Mass/Vol] 4.40 mg/L 0.0-3.0 [facility] Comment on above: C-Reactive Protein ( CRP) provides useful information for thediagnosis, therapy and monitoring of inflammatory processesand associated diseases. For the evaluation of Relative Riskfor Cardiovascular Disease, a High Sensitivity CRP (HSCRP)should be ordered. XR KNEE POST OP 3V AP/LAT/ME RCHANT LEFTon 05-21-2022 [facility] XR Knee AP and Lateral and M erchantson 05-21-2022 IMPRESSION: Left total knee arthroplasty without complication on this single view. Senior Examiner: PSCYasmin Transcribe Date/Time: May 21 2022 1:32P Dictated by : KATHY KING MD This examination was interpreted and the report reviewed and electronically signed by: ARABELLA ALVARADO MD on May 21 2022 2:24PM [facility] DIVISION OF RADIOLOGY * * *Final Report* [...] swelling, likely postoperative. DIVISION OF RADIOLOGY Provider, Rick Gordon - 05/21/2022 * * *Final Report* * [...] arthroplasty without complication on this single view. Senior Examiner: DIAZ Transcribe Date/Time: May 21 2022 1:32P Dictated by : KATHY KING MD This examination was interpreted and the report reviewed and electronically signed by: ARABELLA ALVARADO MD on May 21 2022 2:24PM [facility] Radiology Study observation (narrative) [facility] XR Knee AP and Lateral and M erchantsOrdered By: Ccf Provider on 05-21-2022 [facility] No Panel InformationOrdered By: Ender Oates on 05-15-2022 Vitamin D 25-Hydroxy 36.0 ng/mL [facility] Comment on above: Vitamin D 25(OH) Sta tus Range Deficiency <20 ng/mL (50nmol/L) Insufficiency 20 - 30 ng/mL (50 - 75 nmol/L) Sufficiency 30 - 100 ng/mL (75 - 250 nmol/L) Toxicity >100 ng/mL (>250 nmol/L) Basophil percentageOrdered B y: Ender Oates on 05-10-2022 Bilirubin [Mass/Vol] 0.40 mg/dL 0.20-1.00 [facility] Comment on above: For patients on eltr ombopag therapy, use of Dimension Bradshaw TBIL is not recommended. Chloride [Moles/Vol] 107 mmol/L 98-107 [facility] Glucose [Mass/Vol] 96 mg/dL 74-106 [facility] Potassium [Moles/Vol] 3.9 mmol/L 3.5-5.1 [facility] Protein [Mass/Vol] 6.2 g/dL 6.4-8.2 [facility] Sodium [Moles/Vol] 142 mmol/L 136-145 [facility] WBC (Bld) [#/Vol] 4.3 10*3/uL 4.4-11.0 [facility] Blood erythrocytes count (nu mber/volume)Ordered By: Ender Oates on 05-10-2022 RBC (Bld) [#/Vol] 4.39 10*6/uL 4.2-5.4 [facility] Blood hemoglobin measurement (mass/volume)Ordered By: Ender Oates on 05-10-2022 Hemoglobin (Bld) [Mass/Vol] 14.3 g/dL 12.0-15.0 [facility] Blood platelet mean volumeOr dered By: Ender Oates on 05-10-2022 Platelet mean volume (Bld) [Entitic vol] 11.5 fL 6.2-12.0 [facility] Determination of erythrocyte mean corpuscular volume (MCV)Ordered By: Ender Oates on 05-10-2022 MCV (RBC) [Entitic vol] 99.8 fL 81-99 [facility] Hematocrit Auto (Bld) [Volum e fraction]Ordered By: Ender Oates on 05-10-2022 Hematocrit (Bld) [Volume fraction] 43.8 % 37-47 [facility] Laboratory - Chemistry and C hemistry - challengeOrdered By: Ender Oates on 05-10-2022 ALP [Catalytic activity/Vol] 73 U/L 45-117 [facility] ALT [Catalytic activity/Vol] 16 U/L 13-56 [facility] CO2 [Moles/Vol] 30.0 mmol/L 21.0-32.0 [facility] Globulin (S) [Mass/Vol] 3.2 g/dL 2.2-4.2 [facility] Urea nitrogen/Creatinine [Mass ratio] 29.5 mg/mg 10-20 [facility] Laboratory - Hematology and Cell countsOrdered By: Ender Oates on 05-10-2022 Erythrocyte distribution width (RBC) [Entitic vol] 53.1 fL 35.1-43.9 [facility] Erythrocyte distribution width (RBC) [Ratio] 14.5 % 11.6-14.6 [facility] MCH (RBC) [Entitic mass] 32.6 pg 27.0-32.0 [facility] MCHC Auto (RBC) [Mass/Vol]Or dered By: Ender Oates on 05-10-2022 MCHC (RBC) [Mass/Vol] 32.6 g/dL 32-36 [facility] No Panel InformationOrdered By: Ender Oates on 05-10-2022 Estimated GFR (MDRD) Amer 106 mL/min >60 [facility] Comment on above: GFR Calc Estimated GFR (MDRD) Non-Af Amer 87 mL/min >60 [facility] Comment on above: Non- GFR Calc Valproic Acid (Depakene) Level < 3 ug/mL 50-100 [facility] Platelets bldOrdered By: Ronaldo Oates on 05-10-2022 Platelets (Bld) [#/Vol] 147 10*3/uL 150-450 [facility] Serum or plasma albumin tammie urement (mass/volume)Ordered By: Ender Oates on 05-10-2022 Albumin [Mass/Vol] 3.0 g/dL 3.2-5.0 [facility] Serum or plasma albumin/glob ulin mass ratioOrdered By: Ender Oates on 05-10-2022 Albumin/Globulin [Mass ratio] 0.9 {ratio} 0.9-2.4 [facility] Serum or plasma calcium tammie urement (mass/volume)Ordered By: Ender Oates on 05-10-2022 Calcium [Mass/Vol] 8.4 mg/dL 8.5-10.1 [facility] Serum or plasma creatinine m easurement [...] 05-10-2022 Urea nitrogen [Mass/Vol] 21 mg/dL 7-18 [facility] Thin prep Papanicolaou smear with manual screeningOrdered By: Ender Oates on 05-10-2022 Thin prep Papanicolaou smear with manual screening 18 U/L 15-37 [facility] Thin prep Papanicolaou smear with manual screening 5 5-15 [facility] No Panel InformationOrdered By: Chet Angel on 05-01-2022 Thyroid Stimulating Hormone (TSH) 3.11 uIU/mL 0.358-3.74 [facility] Basophil percentageOrdered B y: Ender Oates on 04-14-2022 Bilirubin [Mass/Vol] 0.30 mg/dL 0.20-1.00 [facility] Comment on above: For patients on eltr ombopag therapy, use of Dimension Bradshaw TBIL is not recommended. Chloride [Moles/Vol] 106 mmol/L 98-107 [facility] Glucose [Mass/Vol] 85 mg/dL 74-106 [facility] Potassium [Moles/Vol] 4.2 mmol/L 3.5-5.1 [facility] Protein [Mass/Vol] 6.6 g/dL 6.4-8.2 [facility] Sodium [Moles/Vol] 141 mmol/L 136-145 [facility] WBC (Bld) [#/Vol] 7.8 10*3/uL 4.4-11.0 [facility] Blood erythrocytes count (nu mber/volume)Ordered By: Ender Oates on 04-14-2022 RBC (Bld) [#/Vol] 4.00 10*6/uL 4.2-5.4 [facility] Blood hemoglobin measurement (mass/volume)Ordered By: Ender Oates on 04-14-2022 Hemoglobin (Bld) [Mass/Vol] 12.8 g/dL 12.0-15.0 [facility] Blood platelet mean volumeOr dered By: Ender Oates on 04-14-2022 Platelet mean volume (Bld) [Entitic vol] 10.9 fL 6.2-12.0 [facility] Determination of erythrocyte mean corpuscular volume (MCV)Ordered By: Ender Oates on 04-14-2022 MCV (RBC) [Entitic vol] 99.5 fL 81-99 [facility] Hematocrit Auto (Bld) [Volum e fraction]Ordered By: Endre Oates on 04-14-2022 Hematocrit (Bld) [Volume fraction] 39.8 % 37-47 [facility] Laboratory - Chemistry and C hemistry - challengeOrdered By: Ender Oates on 04-14-2022 ALP [Catalytic activity/Vol] 75 U/L 45-117 [facility] ALT [Catalytic activity/Vol] 18 U/L 13-56 [facility] CO2 [Moles/Vol] 28.0 mmol/L 21.0-32.0 [facility] Globulin (S) [Mass/Vol] 3.9 g/dL 2.2-4.2 [facility] Urea nitrogen/Creatinine [Mass ratio] 36.9 mg/mg 10-20 [facility] Laboratory - Hematology and Cell countsOrdered By: Ender Oates on 04-14-2022 Erythrocyte distribution width (RBC) [Entitic vol] 52.8 fL 35.1-43.9 [facility] Erythrocyte distribution width (RBC) [Ratio] 14.4 % 11.6-14.6 [facility] MCH (RBC) [Entitic mass] 32.0 pg 27.0-32.0 [facility] MCHC Auto (RBC) [Mass/Vol]Or dered By: Ender Oates on 04-14-2022 MCHC (RBC) [Mass/Vol] 32.2 g/dL 32-36 [facility] No Panel InformationOrdered By: Ender Oates on 04-14-2022 Estimated GFR (MDRD) Amer 117 mL/min >60 [facility] Comment on above: GFR Calc Estimated GFR (MDRD) Non-Af Amer 97 mL/min >60 [facility] Comment on above: Non- GFR Calc Platelets bldOrdered By: Ronaldo Oates on 04-14-2022 Platelets (Bld) [#/Vol] 162 10*3/uL 150-450 [facility] Serum or plasma albumin tammie urement (mass/volume)Ordered By: Ender Oates on 04-14-2022 Albumin [Mass/Vol] 2.7 g/dL 3.2-5.0 [facility] Serum or plasma albumin/glob ulin mass ratioOrdered By: Ender Oates on 04-14-2022 Albumin/Globulin [Mass ratio] 0.7 {ratio} 0.9-2.4 [facility] Serum or plasma calcium tammie urement (mass/volume)Ordered By: Ender Oates on 04-14-2022 Calcium [Mass/Vol] 8.2 mg/dL 8.5-10.1 [facility] Serum or plasma creatinine m easurement [...] 04-14-2022 Urea nitrogen [Mass/Vol] 24 mg/dL 7-18 [facility] Thin prep Papanicolaou smear with manual screeningOrdered By: Ender Oates on 04-14-2022 Thin prep Papanicolaou smear with manual screening 18 U/L 15-37 [facility] Thin prep Papanicolaou smear with manual screening 7 5-15 [facility] Basophil percentageOrdered B y: Ender Oates on 03-10-2022 Bilirubin [Mass/Vol] 0.40 mg/dL 0.20-1.00 [facility] Comment on above: For patients on eltr ombopag therapy, use of Dimension Bradshaw TBIL is not recommended. Chloride [Moles/Vol] 109 mmol/L 98-107 [facility] Glucose [Mass/Vol] 83 mg/dL 74-106 [facility] Potassium [Moles/Vol] 4.2 mmol/L 3.5-5.1 [facility] Protein [Mass/Vol] 6.9 g/dL 6.4-8.2 [facility] Sodium [Moles/Vol] 143 mmol/L 136-145 [facility] WBC (Bld) [#/Vol] 7.6 10*3/uL 4.4-11.0 [facility] Blood erythrocytes count (nu mber/volume)Ordered By: Ender Oates on 03-10-2022 RBC (Bld) [#/Vol] 4.43 10*6/uL 4.2-5.4 [facility] Blood hemoglobin measurement (mass/volume)Ordered By: Ender Oates on 03-10-2022 Hemoglobin (Bld) [Mass/Vol] 14.2 g/dL 12.0-15.0 [facility] Blood platelet mean volumeOr dered By: Ender Oates on 03-10-2022 Platelet mean volume (Bld) [Entitic vol] 11.6 fL 6.2-12.0 [facility] Determination of erythrocyte mean corpuscular volume (MCV)Ordered By: Ender Oates on 03-10-2022 MCV (RBC) [Entitic vol] 98.4 fL 81-99 [facility] Hematocrit Auto (Bld) [Volum e fraction]Ordered By: Ender Oates on 03-10-2022 Hematocrit (Bld) [Volume fraction] 43.6 % 37-47 [facility] Laboratory - Chemistry and C hemistry - challengeOrdered By: Ender Oates on 03-10-2022 ALP [Catalytic activity/Vol] 67 U/L 45-117 [facility] ALT [Catalytic activity/Vol] 20 U/L 13-56 [facility] CO2 [Moles/Vol] 27.0 mmol/L 21.0-32.0 [facility] Globulin (S) [Mass/Vol] 3.9 g/dL 2.2-4.2 [facility] Urea nitrogen/Creatinine [Mass ratio] 39.6 mg/mg 10-20 [facility] Laboratory - Hematology and Cell countsOrdered By: Ender Oates on 03-10-2022 Erythrocyte distribution width (RBC) [Entitic vol] 50.4 fL 35.1-43.9 [facility] Erythrocyte distribution width (RBC) [Ratio] 13.8 % 11.6-14.6 [facility] MCH (RBC) [Entitic mass] 32.1 pg 27.0-32.0 [facility] MCHC Auto (RBC) [Mass/Vol]Or dered By: Ender Oates on 03-10-2022 MCHC (RBC) [Mass/Vol] 32.6 g/dL 32-36 [facility] No Panel InformationOrdered By: Ender Oates on 03-10-2022 Estimated GFR (MDRD) Amer 127 mL/min >60 [facility] Comment on above: GFR Calc Estimated GFR (MDRD) Non-Af Amer 105 mL/min >60 [facility] Comment on above: Non- GFR Calc Platelets bldOrdered By: Ronaldo Oates on 03-10-2022 Platelets (Bld) [#/Vol] 163 10*3/uL 150-450 [facility] Serum or plasma albumin tammie urement (mass/volume)Ordered By: Ender Oates on 03-10-2022 Albumin [Mass/Vol] 3.0 g/dL 3.2-5.0 [facility] Serum or plasma albumin/glob ulin mass ratioOrdered By: Ender Oates on 03-10-2022 Albumin/Globulin [Mass ratio] 0.8 {ratio} 0.9-2.4 [facility] Serum or plasma calcium tammie urement (mass/volume)Ordered By: Ender Oates on 03-10-2022 Calcium [Mass/Vol] 9.0 mg/dL 8.5-10.1 [facility] Serum or plasma creatinine m easurement [...] 03-10-2022 Urea nitrogen [Mass/Vol] 24 mg/dL 7-18 [facility] Thin prep Papanicolaou smear with manual screeningOrdered By: Ender Oates on 03-10-2022 Thin prep Papanicolaou smear with manual screening 15 U/L 15-37 [facility] Thin prep Papanicolaou smear with manual screening 7 5-15 [facility] Basophil percentageon 2021 Bilirubin [Mass/Vol] 0.30 mg/dL 0.20-1.00 [facility] Work Phone: Comment on above: For patients on eltr ombopag therapy, use of Dimension Bradshaw TBIL is not recommended. Chloride [Moles/Vol] 105 mmol/L 98-107 [facility] Work Phone: Cholesterol [Mass/Vol] 114 mg/dL <200 [facility] Work Phone: Comment on above: <200 mg/dL Desirable 200-240 mg/dL Borderline >240 mg/dL High Risk Glucose [Mass/Vol] 79 mg/dL 74-106 [facility] Work Phone: Potassium [Moles/Vol] 4.1 mmol/L 3.5-5.1 [facility] Work Phone: Protein [Mass/Vol] 6.7 g/dL 6.4-8.2 [facility] Work Phone: Sodium [Moles/Vol] 139 mmol/L 136-145 [facility] Work Phone: [phone] Triglyceride [Mass/Vol] 94 mg/dL <199 [facility] Work Phone: Comment on above: The drugs N-Acetylcy steine and Metamizole may falsely depress this assay.Serum Triglycerides Reference Interval Normal <150 mg/dL Borderline high 150 - 199 mg/dL High 200 - 499 mg/dL Very High > or = 500 mg/dL WBC (Bld) [#/Vol] 7.5 10*3/uL 4.4-11.0 [facility] Work Phone: Blood erythrocytes count (nu mber/volume)on 02-10-2022 RBC (Bld) [#/Vol] 4.45 10*6/uL 4.2-5.4 [facility] Work Phone: Blood hemoglobin measurement (mass/volume)on 02-10-2022 Hemoglobin (Bld) [Mass/Vol] 14.7 g/dL 12.0-15.0 [facility] Work Phone: [phone] Blood platelet mean volumeon 02-10-2022 Platelet mean volume (Bld) [Entitic vol] 10.7 fL 6.2-12.0 [facility] Work Phone: [phone] Determination of erythrocyte mean corpuscular volume (MCV)on 02-10-2022 MCV (RBC) [Entitic vol] 100.2 fL 81-99 [facility] Work Phone: [phone] Hematocrit Auto (Bld) [Volum e fraction]on 02-10-2022 Hematocrit (Bld) [Volume fraction] 44.6 % 37-47 [facility] Work Phone: [phone] Laboratory - Chemistry and C hemistry - challengeon 02-10-2022 ALP [Catalytic activity/Vol] 58 U/L 45-117 [facility] Work Phone: ALT [Catalytic activity/Vol] 18 U/L 13-56 [facility] Work Phone: CO2 [Moles/Vol] 29.0 mmol/L 21.0-32.0 [facility] Work Phone: [phone] Globulin (S) [Mass/Vol] 3.9 g/dL 2.2-4.2 [facility] Work Phone: [phone] Urea nitrogen/Creatinine [Mass ratio] 40.5 mg/mg 10-20 [facility] Work Phone: [phone] Laboratory - Hematology and Cell countson 02-10-2022 Erythrocyte distribution width (RBC) [Entitic vol] 51.3 fL 35.1-43.9 [facility] Work Phone: [phone] Erythrocyte distribution width (RBC) [Ratio] 13.9 % 11.6-14.6 [facility] Work Phone: [phone] MCH (RBC) [Entitic mass] 33.0 pg 27.0-32.0 [facility] Work Phone: MCHC Auto (RBC) [Mass/Vol]on 02-10-2022 MCHC (RBC) [Mass/Vol] 33.0 g/dL 32-36 [facility] Work Phone: No Panel Informationon 02-10 Estimated GFR (MDRD) Amer 137 mL/min >60 [facility] Work Phone: Comment on above: GFR Calc Estimated GFR (MDRD) Non-Af Amer 113 mL/min >60 [facility] Work Phone: Comment on above: Non- GFR Calc Valproic Acid (Depakene) Level 34 ug/mL 50-100 [facility] Work Phone: Platelets bldon 02-10-2022 Platelets (Bld) [#/Vol] 169 10*3/uL 150-450 [facility] Work Phone: Serum or plasma albumin tammie urement (mass/volume)on 02-10-2022 Albumin [Mass/Vol] 2.8 g/dL 3.2-5.0 [facility] Work Phone: Serum or plasma albumin/glob ulin mass ratioon 02-10-2022 Albumin/Globulin [Mass ratio] 0.7 {ratio} 0.9-2.4 [facility] Work Phone: Serum or plasma calcium tammie urement (mass/volume)on 02-10-2022 Calcium [Mass/Vol] 8.4 mg/dL 8.5-10.1 [facility] Work Phone: Serum or plasma cholesterol in HDL measurement (mass/volume)on 02-10-2022 Cholesterol in HDL [Mass/Vol] 50 mg/dL >40 [facility] Work Phone: Comment on above: The drugs N-Acetylcy steine and Metamizole may falsely depress this assay. Reference Range HDL <40 mg/dL Low HDL Cholesterol HDL >or= 60 mg/dL High HDL Cholesterol Serum or plasma cholesterol in VLDL measurement (mass/volume)on 09-12-2022 Cholesterol in VLDL [Mass/Vol] 19 mg/dL 5-40 [facility] Work Phone: Serum or plasma [...] Cholesterol in LDL [Mass/Vol] 45 mg/dL 0-130 [facility] Work Phone: Serum or plasma urea nitroge n measurement (mass/volume)on 02-10-2022 Urea nitrogen [Mass/Vol] 23 mg/dL 7-18 [facility] Work Phone: Thin prep Papanicolaou smear with manual screeningon 02-10-2022 Thin prep Papanicolaou smear with manual screening 15 U/L 15-37 [facility] Work Phone: Thin prep Papanicolaou smear with manual screening 5 5-15 [facility] Work Phone: Basophil percentageon 2021 Bilirubin [Mass/Vol] 0.50 mg/dL 0.20-1.00 [facility] Work Phone: Comment on above: For patients on eltr ombopag therapy, use of Dimension Bradshaw TBIL is not recommended. Chloride [Moles/Vol] 105 mmol/L 98-107 [facility] Work Phone: Glucose [Mass/Vol] 83 mg/dL 74-106 [facility] Work Phone: [phone] Potassium [Moles/Vol] 3.9 mmol/L 3.5-5.1 [facility] Work Phone: [phone] Protein [Mass/Vol] 6.5 g/dL 6.4-8.2 [facility] Work Phone: [phone] Sodium [Moles/Vol] 140 mmol/L 136-145 [facility] Work Phone: [phone] WBC (Bld) [#/Vol] 7.1 10*3/uL 4.4-11.0 [facility] Work Phone: [phone] Blood erythrocytes count (nu mber/volume)on 01-06-2022 RBC (Bld) [#/Vol] 4.36 10*6/uL 4.2-5.4 [facility]: [phone] Blood hemoglobin measurement (mass/volume)on 01-06-2022 Hemoglobin (Bld) [Mass/Vol] 14.0 g/dL 12.0-15.0 [facility] Work Phone: [phone] Blood platelet mean volumeon 01-06-2022 Platelet mean volume (Bld) [Entitic vol] 11.0 fL 6.2-12.0 [facility] Work Phone: [phone] Determination of erythrocyte mean corpuscular volume (MCV)on 01-06-2022 MCV (RBC) [Entitic vol] 99.5 fL 81-99 [facility] Work Phone: [phone] Hematocrit Auto (Bld) [Volum e fraction]on 01-06-2022 Hematocrit (Bld) [Volume fraction] 43.4 % 37-47 [facility] Work Phone: [phone] Laboratory - Chemistry and C hemistry - challengeon 01-06-2022 ALP [Catalytic activity/Vol] 61 U/L 45-117 [facility] Work Phone: [phone] ALT [Catalytic activity/Vol] 18 U/L 13-56 [facility] Work Phone: [phone] CO2 [Moles/Vol] 34.0 mmol/L 21.0-32.0 [facility] Work Phone: [phone] Globulin (S) [Mass/Vol] 3.8 g/dL 2.2-4.2 [facility] Work Phone: [phone] Urea nitrogen/Creatinine [Mass ratio] 37.6 mg/mg 10-20 [facility] Work Phone: [phone] Laboratory - Hematology and Cell countson 01-06-2022 Erythrocyte distribution width (RBC) [Entitic vol] 54.3 fL 35.1-43.9 [facility] Work Phone: [phone] Erythrocyte distribution width (RBC) [Ratio] 14.6 % 11.6-14.6 [facility] Work Phone: [phone] MCH (RBC) [Entitic mass] 32.1 pg 27.0-32.0 [facility] Work Phone: [phone] MCHC Auto (RBC) [Mass/Vol]on 01-06-2022 MCHC (RBC) [Mass/Vol] 32.3 g/dL 32-36 [facility] Work Phone: [phone] No Panel Informationon 01-06 Estimated GFR (MDRD) Amer 133 mL/min >60 [facility] Work Phone: [phone] Comment on above: GFR Calc Estimated GFR (MDRD) Non-Af Amer 110 mL/min >60 [facility] Work Phone: [phone] Comment on above: Non- GFR Calc Platelets bldon 01-06-2022 Platelets (Bld) [#/Vol] 169 10*3/uL 150-450 [facility] Work Phone: [phone] Serum or plasma albumin tammie urement (mass/volume)on 01-06-2022 Albumin [Mass/Vol] 2.7 g/dL 3.2-5.0 [facility] Work Phone: [phone] Serum or plasma albumin/glob ulin mass ratioon 01-06-2022 Albumin/Globulin [Mass ratio] 0.7 {ratio} 0.9-2.4 [facility] Work Phone: [phone] Serum or plasma calcium tammie urement (mass/volume)on 01-06-2022 Calcium [Mass/Vol] 8.3 mg/dL 8.5-10.1 [facility] Work Phone: [phone] Serum or plasma creatinine m easurement (mass/volume)on 01-06-2022 Creatinine [Mass/Vol] 0.58 mg/dL 0.55-1.02 [facility] Work Phone: Comment on above: The validity of the calculated GFR & GFRAA in patients over 70 years has not been determined. Clinical correlation is essential. Serum or plasma urea nitroge n measurement (mass/volume)on 01-06-2022 Urea nitrogen [Mass/Vol] 22 mg/dL 7-18 [facility] Work Phone: Thin prep Papanicolaou smear with manual screeningon 01-06-2022 Thin prep Papanicolaou smear with manual screening 16 U/L 15-37 [facility] Work Phone: Thin prep Papanicolaou smear with manual screening 1 5-15 [facility] Work Phone: Basophil percentageon 2021 Cholesterol [Mass/Vol] 141 mg/dL <200 [facility] Work Phone: Comment on above: <200 mg/dL Desirable 200-240 mg/dL Borderline >240 mg/dL High Risk Triglyceride [Mass/Vol] 171 mg/dL <199 [facility] Work Phone: Comment on above: The drugs N-Acetylcy steine and Metamizole may falsely depress this assay.Serum Triglycerides Reference Interval Normal <150 mg/dL Borderline high 150 - 199 mg/dL High 200 - 499 mg/dL Very High > or = 500 mg/dL Serum or plasma cholesterol in HDL measurement (mass/volume)on 12-27-2021 Cholesterol in HDL [Mass/Vol] 47 mg/dL >40 [facility] Work Phone: Comment on above: The drugs N-Acetylcy steine and Metamizole may falsely depress this assay. Reference Range HDL <40 mg/dL Low HDL Cholesterol HDL >or= 60 mg/dL High HDL Cholesterol Serum or plasma cholesterol in VLDL measurement (mass/volume)on 12-27-2021 Cholesterol in VLDL [Mass/Vol] 34 mg/dL 5-40 [facility] Work Phone: Serum or plasma low density lipoprotein (LDL) cholesterol measurement (mass/volume)on 12-27-2021 Cholesterol in LDL [Mass/Vol] 60 mg/dL 0-130 [facility] Work Phone: Basophil percentageon 2021 Bilirubin [Mass/Vol] 0.30 mg/dL 0.20-1.00 [facility] Work Phone: [phone] Comment on above: For patients on eltr ombopag therapy, use of Dimension Bradshaw TBIL is not recommended. Chloride [Moles/Vol] 101 mmol/L 98-107 [facility] Work Phone: [phone] Glucose [Mass/Vol] 74 mg/dL 74-106 [facility] Work Phone: [phone] Potassium [Moles/Vol] 4.6 mmol/L 3.5-5.1 [facility] Work Phone: [phone] Protein [Mass/Vol] 7.9 g/dL 6.4-8.2 [facility] Work Phone: [phone] Sodium [Moles/Vol] 139 mmol/L 136-145 [facility] Work Phone: [phone] WBC (Bld) [#/Vol] 7.5 10*3/uL 4.4-11.0 [facility] Work Phone: Blood erythrocytes count (nu mber/volume)on 12-09-2021 RBC (Bld) [#/Vol] 4.80 10*6/uL 4.2-5.4 [facility] Work Phone: [phone] Blood hemoglobin measurement (mass/volume)on 12-09-2021 Hemoglobin (Bld) [Mass/Vol] 15.4 g/dL 12.0-15.0 [facility] Work Phone: [phone] Blood platelet mean volumeon 12-09-2021 Platelet mean volume (Bld) [Entitic vol] 11.3 fL 6.2-12.0 [facility] Work Phone: [phone] Determination of erythrocyte mean corpuscular volume (MCV)on 12-09-2021 MCV (RBC) [Entitic vol] 103.1 fL 81-99 [facility] Work Phone: Hematocrit Auto (Bld) [Volum e fraction]on 12-09-2021 Hematocrit (Bld) [Volume fraction] 49.5 % 37-47 [facility] Work Phone: Laboratory - Chemistry and C hemistry - challengeon 12-09-2021 ALP [Catalytic activity/Vol] 76 U/L 45-117 [facility] Work Phone: [phone] ALT [Catalytic activity/Vol] 21 U/L 13-56 [facility] Work Phone: [phone] CO2 [Moles/Vol] 28.0 mmol/L 21.0-32.0 [facility] Work Phone: [phone] Globulin (S) [Mass/Vol] 4.5 g/dL 2.2-4.2 [facility] Work Phone: [phone] Urea nitrogen/Creatinine [Mass ratio] 36.1 mg/mg 10-20 [facility] Work Phone: [phone] Laboratory - Hematology and Cell countson 12-09-2021 Erythrocyte distribution width (RBC) [Entitic vol] 57.3 fL 35.1-43.9 [facility] Work Phone: [phone] Erythrocyte distribution width (RBC) [Ratio] 14.9 % 11.6-14.6 [facility] Work Phone: [phone] MCH (RBC) [Entitic mass] 32.1 pg 27.0-32.0 [facility] Work Phone: MCHC Auto (RBC) [Mass/Vol]on 12-09-2021 MCHC (RBC) [Mass/Vol] 31.1 g/dL 32-36 [facility] Work Phone: No Panel Informationon 12-09 Estimated GFR (MDRD) Amer 109 mL/min >60 [facility] Work Phone: Comment on above: GFR Calc Estimated GFR (MDRD) Non-Af Amer 90 mL/min >60 [facility] Work Phone: [phone] Comment on above: Non- GFR Calc Platelets bldon 12-09-2021 Platelets (Bld) [#/Vol] 189 10*3/uL 150-450 [facility] Work Phone: [phone] Serum or plasma albumin tammie urement (mass/volume)on 12-09-2021 Albumin [Mass/Vol] 3.4 g/dL 3.2-5.0 [facility] Work Phone: [phone] Serum or plasma albumin/glob ulin mass ratioon 12-09-2021 Albumin/Globulin [Mass ratio] 0.8 {ratio} 0.9-2.4 [facility] Work Phone: [phone] Serum or plasma calcium tammie urement (mass/volume)on 12-09-2021 Calcium [Mass/Vol] 9.4 mg/dL 8.5-10.1 [facility] Work Phone: [phone] Serum or plasma creatinine m easurement (mass/volume)on 12-09-2021 Creatinine [Mass/Vol] 0.69 mg/dL 0.55-1.02 [facility] Work Phone: Comment on above: The validity of the calculated GFR & GFRAA in patients over 70 years has not been determined. Clinical correlation is essential. Serum or plasma urea nitroge n measurement (mass/volume)on 12-09-2021 Urea nitrogen [Mass/Vol] 25 mg/dL 7-18 [facility] Work Phone: [phone] Thin prep Papanicolaou smear with manual screeningon 12-09-2021 Thin prep Papanicolaou smear with manual screening 25 U/L 15-37 [facility] Work Phone: [phone] Thin prep Papanicolaou smear with manual screening 10 5-15 [facility] Work Phone: Basophil percentageon 2021 Bilirubin [Mass/Vol] 0.40 mg/dL 0.20-1.00 [facility] Work Phone: Comment on above: For patients on eltr ombopag therapy, use of Dimension Bradshaw TBIL is not recommended. Chloride [Moles/Vol] 104 mmol/L 98-107 [facility] Work Phone: [phone] Glucose [Mass/Vol] 71 mg/dL 74-106 [facility] Work Phone: [phone] Potassium [Moles/Vol] 4.0 mmol/L 3.5-5.1 [facility] Work Phone: [phone] Protein [Mass/Vol] 6.7 g/dL 6.4-8.2 [facility] Work Phone: [phone] Sodium [Moles/Vol] 137 mmol/L 136-145 [facility] Work Phone: [phone] WBC (Bld) [#/Vol] 6.7 10*3/uL 4.4-11.0 [facility] Work Phone: [phone] Blood erythrocytes count (nu mber/volume)on 11-11-2021 RBC (Bld) [#/Vol] 4.37 10*6/uL 4.2-5.4 [facility] [phone] Blood hemoglobin measurement (mass/volume)on 11-11-2021 Hemoglobin (Bld) [Mass/Vol] 14.1 g/dL 12.0-15.0 [facility] Work Phone: [phone] Blood platelet mean volumeon 11-11-2021 Platelet mean volume (Bld) [Entitic vol] 10.9 fL 6.2-12.0 [facility] Work Phone: [phone] Determination of erythrocyte mean corpuscular volume (MCV)on 11-11-2021 MCV (RBC) [Entitic vol] 98.2 fL 81-99 [facility] Work Phone: [phone] Hematocrit Auto (Bld) [Volum e fraction]on 11-11-2021 Hematocrit (Bld) [Volume fraction] 42.9 % 37-47 [facility] Work Phone: [phone] Laboratory - Chemistry and C hemistry - challengeon 11-11-2021 ALP [Catalytic activity/Vol] 60 U/L 45-117 [facility] Work Phone: [phone] ALT [Catalytic activity/Vol] 25 U/L 13-56 [facility] Work Phone: [phone] CO2 [Moles/Vol] 28.0 mmol/L 21.0-32.0 [facility] Work Phone: [phone] Globulin (S) [Mass/Vol] 3.9 g/dL 2.2-4.2 [facility] Work Phone: [phone] Urea nitrogen/Creatinine [Mass ratio] 43.8 mg/mg 10-20 [facility] Work Phone: [phone] Laboratory - Hematology and Cell countson 11-11-2021 Erythrocyte distribution width (RBC) [Entitic vol] 52.9 fL 35.1-43.9 [facility] Work Phone: [phone] Erythrocyte distribution width (RBC) [Ratio] 14.7 % 11.6-14.6 [facility] Work Phone: [phone] MCH (RBC) [Entitic mass] 32.3 pg 27.0-32.0 [facility] Work Phone: [phone] MCHC Auto (RBC) [Mass/Vol]on 11-11-2021 MCHC (RBC) [Mass/Vol] 32.9 g/dL 32-36 [facility] Work Phone: [phone] No Panel Informationon 11-11 Estimated GFR (MDRD) Amer 125 mL/min >60 [facility] Work Phone: [phone] Comment on above: GFR Calc Estimated GFR (MDRD) Non-Af Amer 103 mL/min >60 [facility] Work Phone: [phone] Comment on above: Non- GFR Calc Platelets bldon 11-11-2021 Platelets (Bld) [#/Vol] 189 10*3/uL 150-450 [facility] Work Phone: [phone] Serum or plasma albumin tammie urement (mass/volume)on 11-11-2021 Albumin [Mass/Vol] 2.8 g/dL 3.2-5.0 [facility] Work Phone: [phone] Serum or plasma albumin/glob ulin mass ratioon 11-11-2021 Albumin/Globulin [Mass ratio] 0.7 {ratio} 0.9-2.4 [facility] Work Phone: Serum or plasma calcium tammie urement (mass/volume)on 11-11-2021 Calcium [Mass/Vol] 8.5 mg/dL 8.5-10.1 [facility] Work Phone: Serum or plasma creatinine m easurement (mass/volume)on 11-11-2021 Creatinine [Mass/Vol] 0.62 mg/dL 0.55-1.02 [facility] Work Phone: Comment on above: The validity of the calculated GFR & GFRAA in patients over 70 years has not been determined. Clinical correlation is essential. Serum or plasma urea nitroge n measurement (mass/volume)on 11-11-2021 Urea nitrogen [Mass/Vol] 27 mg/dL 7-18 [facility] Work Phone: Thin prep Papanicolaou smear with manual screeningon 11-11-2021 Thin prep Papanicolaou smear with manual screening 26 U/L 15-37 [facility] Work Phone: Thin prep Papanicolaou smear with manual screening 5 5-15 [facility] Work Phone: No Panel Informationon 11-08 Valproic Acid (Depakene) Level 30 ug/mL 50-100 [facility] Work Phone: Basophil percentageon 2021 Bilirubin [Mass/Vol] 0.40 mg/dL 0.20-1.00 [facility] Work Phone: Comment on above: For patients on eltr ombopag therapy, use of Dimension Bradshaw TBIL is not recommended. Chloride [Moles/Vol] 108 mmol/L 98-107 [facility] Work Phone: Glucose [Mass/Vol] 100 mg/dL 74-106 [facility] Work Phone: Comment on above: Fasting Glucose resu lt from 100 to 125 mg/dL suggests IMPAIRED HOMEOSTASIS per A.D.A. criteria. Potassium [Moles/Vol] 4.4 mmol/L 3.5-5.1 [facility] Work Phone: [phone] Protein [Mass/Vol] 7.9 g/dL 6.4-8.2 [facility] Work Phone: [phone] Sodium [Moles/Vol] 139 mmol/L 136-145 [facility] Work Phone: [phone] WBC (Bld) [#/Vol] 9.3 10*3/uL 4.4-11.0 [facility] Work Phone: [phone] Blood erythrocytes count (nu mber/volume)on 10-07-2021 RBC (Bld) [#/Vol] 4.96 10*6/uL 4.2-5.4 [facility] Work Phone: [phone] Blood hemoglobin measurement (mass/volume)on 10-07-2021 Hemoglobin (Bld) [Mass/Vol] 15.5 g/dL 12.0-15.0 [facility] Work Phone: [phone] Blood platelet mean volumeon 10-07-2021 Platelet mean volume (Bld) [Entitic vol] 11.6 fL 6.2-12.0 [facility] Work Phone: [phone] Determination of erythrocyte mean corpuscular volume (MCV)on 10-07-2021 MCV (RBC) [Entitic vol] 99.6 fL 81-99 [facility] Work Phone: [phone] Hematocrit Auto (Bld) [Volum e fraction]on 10-07-2021 Hematocrit (Bld) [Volume fraction] 49.4 % 37-47 [facility] Work Phone: [phone] Laboratory - Chemistry and C hemistry - challengeon 10-07-2021 ALP [Catalytic activity/Vol] 74 U/L 45-117 [facility] Work Phone: [phone] ALT [Catalytic activity/Vol] 17 U/L 13-56 [facility] Work Phone: [phone] CO2 [Moles/Vol] 27.0 mmol/L 21.0-32.0 [facility] Work Phone: [phone] Globulin (S) [Mass/Vol] 4.7 g/dL 2.2-4.2 [facility] Work Phone: [phone] Urea nitrogen/Creatinine [Mass ratio] 43.1 mg/mg 10-20 [facility] Work Phone: [phone] Laboratory - Hematology and Cell countson 10-07-2021 Erythrocyte distribution width (RBC) [Entitic vol] 52.7 fL 35.1-43.9 [facility] Work Phone: [phone] Erythrocyte distribution width (RBC) [Ratio] 14.4 % 11.6-14.6 [facility] Work Phone: [phone] MCH (RBC) [Entitic mass] 31.3 pg 27.0-32.0 [facility] Work Phone: [phone] MCHC Auto (RBC) [Mass/Vol]on 10-07-2021 MCHC (RBC) [Mass/Vol] 31.4 g/dL 32-36 [facility] Work Phone: [phone] No Panel Informationon 10-07 Estimated GFR (MDRD) Amer 101 mL/min >60 [facility] Work Phone: [phone] Comment on above: GFR Calc Estimated GFR (MDRD) Non-Af Amer 83 mL/min >60 [facility] Work Phone: [phone] Comment on above: Non- GFR Calc Platelets bldon 10-07-2021 Platelets (Bld) [#/Vol] 220 10*3/uL 150-450 [facility] Work Phone: [phone] Serum or plasma albumin tammie urement (mass/volume)on 10-07-2021 Albumin [Mass/Vol] 3.2 g/dL 3.2-5.0 [facility] Work Phone: [phone] Serum or plasma albumin/glob ulin mass ratioon 10-07-2021 Albumin/Globulin [Mass ratio] 0.7 {ratio} 0.9-2.4 [facility] Work Phone: [phone] Serum or plasma calcium tammie urement (mass/volume)on 10-07-2021 Calcium [Mass/Vol] 9.0 mg/dL 8.5-10.1 [facility] Work Phone: [phone] Serum or plasma creatinine m easurement (mass/volume)on 10-07-2021 Creatinine [Mass/Vol] 0.74 mg/dL 0.55-1.02 [facility] Work Phone: Comment on above: The validity of the calculated GFR & GFRAA in patients over 70 years has not been determined. Clinical correlation is essential. Serum or plasma urea nitroge n measurement (mass/volume)on 10-07-2021 Urea nitrogen [Mass/Vol] 32 mg/dL 7-18 [facility] Work Phone: [phone] Thin prep Papanicolaou smear with manual screeningon 10-07-2021 Thin prep Papanicolaou smear with manual screening 16 U/L 15-37 [facility] Work Phone: [phone] Thin prep Papanicolaou smear with manual screening 4 5-15 [facility] Work Phone: Basophil percentageon 2021 Bilirubin [Mass/Vol] 0.50 mg/dL 0.20-1.00 [facility] Work Phone: [phone] Comment on above: For patients on eltr ombopag therapy, use of Dimension Bradshaw TBIL is not recommended. Chloride [Moles/Vol] 103 mmol/L 98-107 [facility] Work Phone: [phone] Glucose [Mass/Vol] 93 mg/dL 74-106 [facility] Work Phone: [phone] Potassium [Moles/Vol] 4.4 mmol/L 3.5-5.1 [facility] Work Phone: [phone] Comment on above: Slight Hemolysis, Re sult may be falsely increased. Protein [Mass/Vol] 7.7 g/dL 6.4-8.2 [facility] Work Phone: [phone] Sodium [Moles/Vol] 137 mmol/L 136-145 [facility] Work Phone: [phone] WBC (Bld) [#/Vol] 8.4 10*3/uL 4.4-11.0 [facility] Work Phone: Blood erythrocytes count (nu mber/volume)on 09-09-2021 RBC (Bld) [#/Vol] 4.68 10*6/uL 4.2-5.4 [facility] Work Phone: Blood hemoglobin measurement (mass/volume)on 09-09-2021 Hemoglobin (Bld) [Mass/Vol] 14.4 g/dL 12.0-15.0 [facility] Work Phone: Blood platelet mean volumeon 09-09-2021 Platelet mean volume (Bld) [Entitic vol] 11.3 fL 6.2-12.0 [facility] Work Phone: Determination of erythrocyte mean corpuscular volume (MCV)on 09-09-2021 MCV (RBC) [Entitic vol] 96.6 fL 81-99 [facility] Work Phone: [phone] Hematocrit Auto (Bld) [Volum e fraction]on 09-09-2021 Hematocrit (Bld) [Volume fraction] 45.2 % 37-47 [facility] Work Phone: Laboratory - Chemistry and C hemistry - challengeon 09-09-2021 ALP [Catalytic activity/Vol] 75 U/L 45-117 [facility] Work Phone: ALT [Catalytic activity/Vol] 22 U/L 13-56 [facility] Work Phone: [phone] CO2 [Moles/Vol] 28.0 mmol/L 21.0-32.0 [facility] Work Phone: [phone] Globulin (S) [Mass/Vol] 4.4 g/dL 2.2-4.2 [facility] Work Phone: Urea nitrogen/Creatinine [Mass ratio] 39.4 mg/mg 10-20 [facility] Work Phone: [phone] Laboratory - Hematology and Cell countson 09-09-2021 Erythrocyte distribution width (RBC) [Entitic vol] 51.3 fL 35.1-43.9 [facility] Work Phone: Erythrocyte distribution width (RBC) [Ratio] 14.4 % 11.6-14.6 [facility] Work Phone: [phone] MCH (RBC) [Entitic mass] 30.8 pg 27.0-32.0 [facility] Work Phone: [phone] MCHC Auto (RBC) [Mass/Vol]on 09-09-2021 MCHC (RBC) [Mass/Vol] 31.9 g/dL 32-36 [facility] Work Phone: No Panel Informationon 09-09 Estimated GFR (MDRD) Amer 102 mL/min >60 [facility] Work Phone: Comment on above: GFR Calc Estimated GFR (MDRD) Non-Af Amer 84 mL/min >60 [facility] Work Phone: Comment on above: Non- GFR Calc Platelets bldon 09-09-2021 Platelets (Bld) [#/Vol] 215 10*3/uL 150-450 [facility] Work Phone: [phone] Serum or plasma albumin tammie urement (mass/volume)on 09-09-2021 Albumin [Mass/Vol] 3.3 g/dL 3.2-5.0 [facility] Work Phone: [phone] Serum or plasma albumin/glob ulin mass ratioon 09-09-2021 Albumin/Globulin [Mass ratio] 0.8 {ratio} 0.9-2.4 [facility] Work Phone: [phone] Serum or plasma calcium tammie urement (mass/volume)on 09-09-2021 Calcium [Mass/Vol] 8.4 mg/dL 8.5-10.1 [facility] Work Phone: [phone] Serum or plasma creatinine m easurement (mass/volume)on 09-09-2021 Creatinine [Mass/Vol] 0.74 mg/dL 0.55-1.02 [facility] Work Phone: [phone] Comment on above: The validity of the calculated GFR & GFRAA in patients over 70 years has not been determined. Clinical correlation is essential. Serum or plasma urea nitroge n measurement (mass/volume)on 09-09-2021 Urea nitrogen [Mass/Vol] 29 mg/dL 7-18 [facility] Work Phone: Thin prep Papanicolaou smear with manual screeningon 09-09-2021 Thin prep Papanicolaou smear with manual screening 21 U/L 15-37 [facility] Work Phone: [phone] Comment on above: Slight Hemolysis, Re sult may be falsely increased. Thin prep Papanicolaou smear with manual screening 6 5-15 [facility] Work Phone: Basophil percentageon 2021 Bilirubin [Mass/Vol] 0.30 mg/dL 0.20-1.00 [facility] Work Phone: [phone] Comment on above: For patients on eltr ombopag therapy, use of Dimension Bradshaw TBIL is not recommended. Chloride [Moles/Vol] 103 mmol/L 98-107 [facility] Work Phone: [phone] Cholesterol [Mass/Vol] 149 mg/dL <200 [facility] Work Phone: [phone] Comment on above: <200 mg/dL Desirable 200-240 mg/dL Borderline >240 mg/dL High Risk Glucose [Mass/Vol] 110 mg/dL 74-106 [facility] Work Phone: Comment on above: Fasting Glucose resu lt from 100 to 125 mg/dL suggests IMPAIRED HOMEOSTASIS per A.D.A. criteria. Potassium [Moles/Vol] 4.3 mmol/L 3.5-5.1 [facility] Work Phone: [phone] Protein [Mass/Vol] 7.2 g/dL 6.4-8.2 [facility] Work Phone: [phone] Sodium [Moles/Vol] 138 mmol/L 136-145 [facility] Work Phone: [phone] Triglyceride [Mass/Vol] 107 mg/dL <199 [facility] Work Phone: [phone] Comment on above: The drugs N-Acetylcy steine and Metamizole may falsely depress this assay.Serum Triglycerides Reference Interval Normal <150 mg/dL Borderline high 150 - 199 mg/dL High 200 - 499 mg/dL Very High > or = 500 mg/dL WBC (Bld) [#/Vol] 7.9 10*3/uL 4.4-11.0 [facility] Work Phone: [phone] Blood erythrocytes count (nu mber/volume)on 08-08-2021 RBC (Bld) [#/Vol] 4.45 10*6/uL 4.2-5.4 [facility] Work Phone: [phone] Blood hemoglobin measurement (mass/volume)on 08-08-2021 Hemoglobin (Bld) [Mass/Vol] 14.1 g/dL 12.0-15.0 [facility] Work Phone: [phone] Blood platelet mean volumeon 08-08-2021 Platelet mean volume (Bld) [Entitic vol] 11.2 fL 6.2-12.0 [facility] Work Phone: [phone] Determination of erythrocyte mean corpuscular volume (MCV)on 08-08-2021 MCV (RBC) [Entitic vol] 97.5 fL 81-99 [facility] Work Phone: [phone] Hematocrit Auto (Bld) [Volum e fraction]on 08-08-2021 Hematocrit (Bld) [Volume fraction] 43.4 % 37-47 [facility] Work Phone: [phone] Laboratory - Chemistry and C hemistry - challengeon 08-08-2021 ALP [Catalytic activity/Vol] 77 U/L 45-117 [facility] Work Phone: [phone] ALT [Catalytic activity/Vol] 17 U/L 13-56 [facility] Work Phone: [phone] CO2 [Moles/Vol] 31.0 mmol/L 21.0-32.0 [facility] Work Phone: [phone] Globulin (S) [Mass/Vol] 4.1 g/dL 2.2-4.2 [facility] Work Phone: Urea nitrogen/Creatinine [Mass ratio] 34.6 mg/mg 10-20 [facility] Work Phone: Laboratory - Hematology and Cell countson 08-08-2021 Erythrocyte distribution width (RBC) [Entitic vol] 51.3 fL 35.1-43.9 [facility] Work Phone: Erythrocyte distribution width (RBC) [Ratio] 14.3 % 11.6-14.6 [facility] Work Phone: [phone] MCH (RBC) [Entitic mass] 31.7 pg 27.0-32.0 [facility] Work Phone: MCHC Auto (RBC) [Mass/Vol]on 08-08-2021 MCHC (RBC) [Mass/Vol] 32.5 g/dL 32-36 [facility] Work Phone: No Panel Informationon 08-08 Estimated GFR (MDRD) Amer 109 mL/min >60 [facility] Work Phone: Comment on above: GFR Calc Estimated GFR (MDRD) Non-Af Amer 90 mL/min >60 [facility] Work Phone: Comment on above: Non- GFR Calc Valproic Acid (Depakene) Level 36 ug/mL 50-100 [facility] Work Phone: Platelets bldon 08-08-2021 Platelets (Bld) [#/Vol] 203 10*3/uL 150-450 [facility] Work Phone: Serum or plasma albumin tammie urement (mass/volume)on 08-08-2021 Albumin [Mass/Vol] 3.1 g/dL 3.2-5.0 [facility] Work Phone: Serum or plasma albumin/glob ulin mass ratioon 08-08-2021 Albumin/Globulin [Mass ratio] 0.8 {ratio} 0.9-2.4 [facility] Work Phone: [phone] Serum or plasma calcium tammie urement (mass/volume)on 08-08-2021 Calcium [Mass/Vol] 8.4 mg/dL 8.5-10.1 [facility] Work Phone: Serum or plasma cholesterol in HDL measurement (mass/volume)on 08-08-2021 Cholesterol in HDL [Mass/Vol] 55 mg/dL >40 [facility] Work Phone: Comment on above: The drugs N-Acetylcy steine and Metamizole may falsely depress this assay. Reference Range HDL <40 mg/dL Low HDL Cholesterol HDL >or= 60 mg/dL High HDL Cholesterol Serum or plasma cholesterol in VLDL measurement (mass/volume)on 08-08-2021 Cholesterol in VLDL [Mass/Vol] 21 mg/dL 5-40 [facility] Work Phone: [phone] Serum or plasma creatinine m easurement (mass/volume)on 08-08-2021 Creatinine [Mass/Vol] 0.69 mg/dL 0.55-1.02 [facility] Work Phone: Comment on above: The validity of the calculated GFR & GFRAA in patients over 70 years has not been determined. Clinical correlation is essential. Serum or plasma low density lipoprotein (LDL) cholesterol measurement (mass/volume)on 08-08-2021 Cholesterol in LDL [Mass/Vol] 73 mg/dL 0-130 [facility] Work Phone: Serum or plasma urea nitroge n measurement (mass/volume)on 08-08-2021 Urea nitrogen [Mass/Vol] 24 mg/dL 7-18 [facility] Work Phone: [phone] Thin prep Papanicolaou smear with manual screeningon 08-08-2021 Thin prep Papanicolaou smear with manual screening 13 U/L 15-37 [facility] Work Phone: [phone] Thin prep Papanicolaou smear with manual screening 4 5-15 [facility] Work Phone: [phone] Absolute lymphocyte counton 07-23-2021 Lymphocytes Auto (Unsp spec) [#/Vol] 2.91 10*3/uL 0.83-4.51 [facility] Work Phone: [phone] Basophil percentageon 2021 Basophils/100 WBC (Bld) 1.1 % 0-1 [facility] Work Phone: Bilirubin [Mass/Vol] 0.30 mg/dL 0.20-1.00 [facility] Work Phone: Comment on above: For patients on eltr ombopag therapy, use of Dimension Bradshaw TBIL is not recommended. Chloride [Moles/Vol] 105 mmol/L 98-107 [facility] Work Phone: Eosinophils/100 WBC (Bld) 2.8 % 0-5 [facility] Work Phone: Glucose [Mass/Vol] 78 mg/dL 74-106 [facility] Work Phone: Neutrophils (Bld) [#/Vol] 4.1 10*3/uL 2.0-7.7 [facility] Work Phone: Neutrophils/100 WBC (Bld) 50.5 % 47-70 [facility] Work Phone: Potassium [Moles/Vol] 4.3 mmol/L 3.5-5.1 [facility] Work Phone: Protein [Mass/Vol] 7.0 g/dL 6.4-8.2 [facility] Work Phone: Sodium [Moles/Vol] 139 mmol/L 136-145 [facility] Work Phone: WBC (Bld) [#/Vol] 8.1 10*3/uL 4.4-11.0 [facility] Work Phone: Blood erythrocytes count (nu mber/volume)on 07-23-2021 RBC (Bld) [#/Vol] 4.28 10*6/uL 4.2-5.4 [facility] Work Phone: Blood hemoglobin measurement (mass/volume)on 07-23-2021 Hemoglobin (Bld) [Mass/Vol] 13.5 g/dL 12.0-15.0 [facility] Work Phone: Blood lymphocytes/100 leukoc yteson 07-23-2021 Lymphocytes/100 WBC (Bld) 35.9 % 19-41 [facility] Work Phone: Blood monocytes/100 leukocyt eson 07-23-2021 Monocytes/100 WBC (Bld) 9.5 % 0-10 [facility] Work Phone: Blood platelet mean volumeon 07-23-2021 Platelet mean volume (Bld) [Entitic vol] 11.2 fL 6.2-12.0 [facility] Work Phone: Determination of erythrocyte mean corpuscular volume (MCV)on 07-23-2021 MCV (RBC) [Entitic vol] 95.6 fL 81-99 [facility] Work Phone: Erythrocyte sedimentation ra wade 07-23-2021 ESR (Bld) [Velocity] 7 mm[facility]h 0-[facility]: Hematocrit Auto (Bld) [Volum e fraction]on 07-23-2021 Hematocrit (Bld) [Volume fraction] 40.9 % 37-47 [facility] Work Phone: Laboratory - Chemistry and C hemistry - challengeon 07-23-2021 ALP [Catalytic activity/Vol] 68 U/L 45-117 [facility] Work Phone: ALT [Catalytic activity/Vol] 20 U/L 13-56 [facility] Work Phone: CO2 [Moles/Vol] 28.0 mmol/L 21.0-32.0 [facility] Work Phone: Globulin (S) [Mass/Vol] 4.1 g/dL 2.2-4.2 [facility] Work Phone: Urea nitrogen/Creatinine [Mass ratio] 43.6 mg/mg 10-20 [facility] Work Phone: Laboratory - Hematology and Cell countson 07-23-2021 Erythrocyte distribution width (RBC) [Entitic vol] 49.9 fL 35.1-43.9 [facility] Work Phone: [phone] Erythrocyte distribution width (RBC) [Ratio] 14.2 % 11.6-14.6 [facility] Work Phone: [phone] Immature granulocytes/100 WBC (Bld) 0.200 % 0.0-0.9 [facility] Work Phone: [phone] Comment on above: IG% - Immature Granu locytes (promyelocytes, myelocytes and metamyelocytes) > 1% indicates that a LEFT SHIFT is Present. MCH (RBC) [Entitic mass] 31.5 pg 27.0-32.0 [facility] Work Phone: [phone] Nucleated RBC/100 WBC (Bld) [Ratio] 0 % 0-5 [facility] Work Phone: [phone] MCHC Auto (RBC) [Mass/Vol]on 07-23-2021 MCHC (RBC) [Mass/Vol] 33.0 g/dL 32-36 [facility] Work Phone: No Panel Informationon 07-23 Estimated GFR (MDRD) Amer 119 mL/min >60 [facility] Work Phone: [phone] Comment on above: GFR Calc Estimated GFR (MDRD) Non-Af Amer 99 mL/min >60 [facility] Work Phone: [phone] Comment on above: Non- GFR Calc Platelets bldon 07-23-2021 Platelets (Bld) [#/Vol] 200 10*3/uL 150-450 [facility] Work Phone: [phone] Serum or plasma C reactive p rotein measurement (mass/volume)on 07-23-2021 CRP [Mass/Vol] 3.68 mg/L 0.0-3.0 [facility] Work Phone: [phone] Comment on above: C-Reactive Protein ( CRP) provides useful information for thediagnosis, therapy and monitoring of inflammatory processesand associated diseases. For the evaluation of Relative Riskfor Cardiovascular Disease, a High Sensitivity CRP (HSCRP)should be ordered. Serum or plasma albumin tammie urement (mass/volume)on 07-23-2021 Albumin [Mass/Vol] 2.9 g/dL 3.2-5.0 [facility] Work Phone: [phone] Serum or plasma albumin/glob ulin mass ratioon 07-23-2021 Albumin/Globulin [Mass ratio] 0.7 {ratio} 0.9-2.4 [facility] Work Phone: [phone] Serum or plasma calcium tammie urement (mass/volume)on 07-23-2021 Calcium [Mass/Vol] 8.5 mg/dL 8.5-10.1 [facility] Work Phone: [phone] Serum or plasma creatinine m easurement (mass/volume)on 07-23-2021 Creatinine [Mass/Vol] 0.64 mg/dL 0.55-1.02 [facility] Work Phone: Comment on above: The validity of the calculated GFR & GFRAA in patients over 70 years has not been determined. Clinical correlation is essential. Serum or plasma urea nitroge n measurement (mass/volume)on 07-23-2021 Urea nitrogen [Mass/Vol] 28 mg/dL 7-18 [facility] Work Phone: [phone] Thin prep Papanicolaou smear with manual screeningon 07-23-2021 Thin prep Papanicolaou smear with manual screening 19 U/L 15-37 [facility] Work Phone: [phone] Thin prep Papanicolaou smear with manual screening 6 5-15 [facility] Work Phone: [phone] Absolute lymphocyte counton 07-16-2021 Lymphocytes Auto (Unsp spec) [#/Vol] 2.58 10*3/uL 0.83-4.51 [facility] Work Phone: [phone] Basophil percentageon 2021 Basophils/100 WBC (Bld) 1.1 % 0-1 [facility] Work Phone: [phone] Bilirubin [Mass/Vol] 0.30 mg/dL 0.20-1.00 [facility] Work Phone: [phone] Comment on above: For patients on eltr ombopag therapy, use of Dimension Bradshaw TBIL is not recommended. Chloride [Moles/Vol] 103 mmol/L 98-107 [facility] Work Phone: Eosinophils/100 WBC (Bld) 3.0 % 0-5 [facility] Work Phone: Glucose [Mass/Vol] 74 mg/dL 74-106 [facility] Work Phone: Neutrophils (Bld) [#/Vol] 3.9 10*3/uL 2.0-7.7 [facility] Work Phone: Neutrophils/100 WBC (Bld) 51.3 % 47-70 [facility] Work Phone: Potassium [Moles/Vol] 4.5 mmol/L 3.5-5.1 [facility] Work Phone: Comment on above: Slight Hemolysis, Re sult may be falsely increased. Protein [Mass/Vol] 6.8 g/dL 6.4-8.2 [facility] Work Phone: Sodium [Moles/Vol] 134 mmol/L 136-145 [facility] Work Phone: WBC (Bld) [#/Vol] 7.6 10*3/uL 4.4-11.0 [facility] Work Phone: Blood erythrocytes count (nu mber/volume)on 07-16-2021 RBC (Bld) [#/Vol] 4.21 10*6/uL 4.2-5.4 [facility] Work Phone: Blood hemoglobin measurement (mass/volume)on 07-16-2021 Hemoglobin (Bld) [Mass/Vol] 13.2 g/dL 12.0-15.0 [facility] Work Phone: Blood lymphocytes/100 leukoc yteson 07-16-2021 Lymphocytes/100 WBC (Bld) 33.9 % 19-41 [facility] Work Phone: Blood monocytes/100 leukocyt eson 07-16-2021 Monocytes/100 WBC (Bld) 10.4 % 0-10 [facility] Work Phone: Blood platelet mean volumeon 07-16-2021 Platelet mean volume (Bld) [Entitic vol] 11.3 fL 6.2-12.0 [facility] Work Phone: Determination of erythrocyte mean corpuscular volume (MCV)on 07-16-2021 MCV (RBC) [Entitic vol] 97.1 fL 81-99 [facility] Work Phone: Erythrocyte sedimentation ra wade 07-16-2021 ESR (Bld) [Velocity] 9 mm/h 0-[facility]: Hematocrit Auto (Bld) [Volum e fraction]on 07-16-2021 Hematocrit (Bld) [Volume fraction] 40.9 % 37-47 [facility] Work Phone: Laboratory - Chemistry and C hemistry - challengeon 07-16-2021 ALP [Catalytic activity/Vol] 69 U/L 45-117 [facility] Work Phone: ALT [Catalytic activity/Vol] 24 U/L 13-56 [facility] Work Phone: [phone] CO2 [Moles/Vol] 27.0 mmol/L 21.0-32.0 [facility] Work Phone: [phone] Globulin (S) [Mass/Vol] 4.0 g/dL 2.2-4.2 [facility] Work Phone: Urea nitrogen/Creatinine [Mass ratio] 38.3 mg/mg 10-20 [facility] Work Phone: Laboratory - Hematology and Cell countson 07-16-2021 Erythrocyte distribution width (RBC) [Entitic vol] 50.8 fL 35.1-43.9 [facility] Work Phone: Erythrocyte distribution width (RBC) [Ratio] 14.2 % 11.6-14.6 [facility] Work Phone: Immature granulocytes/100 WBC (Bld) 0.300 % 0.0-0.9 [facility] Work Phone: [phone] Comment on above: IG% - Immature Granu locytes (promyelocytes, myelocytes and metamyelocytes) > 1% indicates that a LEFT SHIFT is Present. MCH (RBC) [Entitic mass] 31.4 pg 27.0-32.0 [facility] Work Phone: [phone] Nucleated RBC/100 WBC (Bld) [Ratio] 0 % 0-5 [facility] Work Phone: [phone] MCHC Auto (RBC) [Mass/Vol]on 07-16-2021 MCHC (RBC) [Mass/Vol] 32.3 g/dL 32-36 [facility] Work Phone: [phone] No Panel Informationon 07-16 Estimated GFR (MDRD) Amer 123 mL/min >60 [facility] Work Phone: [phone] Comment on above: GFR Calc Estimated GFR (MDRD) Non-Af Amer 101 mL/min >60 [facility] Work Phone: [phone] Comment on above: Non- GFR Calc Platelets bldon 07-16-2021 Platelets (Bld) [#/Vol] 193 10*3/uL 150-450 [facility] Work Phone: [phone] Serum or plasma C reactive p rotein measurement (mass/volume)on 07-16-2021 CRP [Mass/Vol] 3.15 mg/L 0.0-3.0 [facility] Work Phone: [phone] Comment on above: C-Reactive Protein ( CRP) provides useful information for thediagnosis, therapy and monitoring of inflammatory processesand associated diseases. For the evaluation of Relative Riskfor Cardiovascular Disease, a High Sensitivity CRP (HSCRP)should be ordered. Serum or plasma albumin tammie urement (mass/volume)on 07-16-2021 Albumin [Mass/Vol] 2.8 g/dL 3.2-5.0 [facility] Work Phone: [phone] Serum or plasma albumin/glob ulin mass ratioon 07-16-2021 Albumin/Globulin [Mass ratio] 0.7 {ratio} 0.9-2.4 [facility] Work Phone: Serum or plasma calcium tammie urement (mass/volume)on 07-16-2021 Calcium [Mass/Vol] 8.8 mg/dL 8.5-10.1 [facility] Work Phone: [phone] Serum or plasma creatinine m easurement (mass/volume)on 07-16-2021 Creatinine [Mass/Vol] 0.63 mg/dL 0.55-1.02 [facility] Work Phone: Comment on above: The validity of the calculated GFR & GFRAA in patients over 70 years has not been determined. Clinical correlation is essential. Serum or plasma urea nitroge n measurement (mass/volume)on 07-16-2021 Urea nitrogen [Mass/Vol] 24 mg/dL 7-18 [facility] Work Phone: [phone] Thin prep Papanicolaou smear with manual screeningon 07-16-2021 Thin prep Papanicolaou smear with manual screening 26 U/L 15-37 [facility] Work Phone: [phone] Comment on above: Slight Hemolysis, Re sult may be falsely increased. Thin prep Papanicolaou smear with manual screening 4 5-15 [facility] Work Phone: [phone] Absolute lymphocyte counton 07-09-2021 Lymphocytes Auto (Unsp spec) [#/Vol] 2.60 10*3/uL 0.83-4.51 [facility] Work Phone: [phone] Basophil percentageon 2021 Basophils/100 WBC (Bld) 1.1 % 0-1 [facility] Work Phone: [phone] Bilirubin [Mass/Vol] 0.30 mg/dL 0.20-1.00 [facility] Work Phone: [phone] Comment on above: For patients on eltr ombopag therapy, use of Dimension Bradshaw TBIL is not recommended. Chloride [Moles/Vol] 103 mmol/L 98-107 [facility] Work Phone: [phone] Eosinophils/100 WBC (Bld) 2.7 % 0-5 [facility] Work Phone: Glucose [Mass/Vol] 78 mg/dL 74-106 [facility] Work Phone: [phone] Neutrophils (Bld) [#/Vol] 3.7 10*3/uL 2.0-7.7 [facility] Work Phone: [phone] Neutrophils/100 WBC (Bld) 49.9 % 47-70 [facility] Work Phone: [phone] Potassium [Moles/Vol] 4.3 mmol/L 3.5-5.1 [facility] Work Phone: [phone] Protein [Mass/Vol] 6.9 g/dL 6.4-8.2 [facility] Work Phone: [phone] Sodium [Moles/Vol] 138 mmol/L 136-145 [facility] Work Phone: [phone] WBC (Bld) [#/Vol] 7.4 10*3/uL 4.4-11.0 [facility] Work Phone: [phone] Blood erythrocytes count (nu mber/volume)on 07-09-2021 RBC (Bld) [#/Vol] 4.12 10*6/uL 4.2-5.4 [facility] Work Phone: [phone] Blood hemoglobin measurement (mass/volume)on 07-09-2021 Hemoglobin (Bld) [Mass/Vol] 13.3 g/dL 12.0-15.0 [facility] Work Phone: [phone] Blood lymphocytes/100 leukoc yteson 07-09-2021 Lymphocytes/100 WBC (Bld) 35.0 % 19-41 [facility] Work Phone: Blood monocytes/100 leukocyt eson 07-09-2021 Monocytes/100 WBC (Bld) 10.9 % 0-10 [facility] Work Phone: Blood platelet mean volumeon 07-09-2021 Platelet mean volume (Bld) [Entitic vol] 11.4 fL 6.2-12.0 [facility] Work Phone: Determination of erythrocyte mean corpuscular volume (MCV)on 07-09-2021 MCV (RBC) [Entitic vol] 96.8 fL 81-99 [facility] Work Phone: [phone] Erythrocyte sedimentation ra wade 07-09-2021 ESR (Bld) [Velocity] 6 mm/h 0-30 [facility] Work Phone: [phone] Hematocrit Auto (Bld) [Volum e fraction]on 07-09-2021 Hematocrit (Bld) [Volume fraction] 39.9 % 37-47 [facility] Work Phone: [phone] Laboratory - Chemistry and C hemistry - challengeon 07-09-2021 ALP [Catalytic activity/Vol] 63 U/L 45-117 [facility] Work Phone: [phone] ALT [Catalytic activity/Vol] 19 U/L 13-56 [facility] Work Phone: [phone] CO2 [Moles/Vol] 27.0 mmol/L 21.0-32.0 [facility] Work Phone: [phone] Globulin (S) [Mass/Vol] 4.1 g/dL 2.2-4.2 [facility] Work Phone: [phone] Urea nitrogen/Creatinine [Mass ratio] 33.0 mg/mg 10-20 [facility] Work Phone: [phone] Laboratory - Hematology and Cell countson 07-09-2021 Erythrocyte distribution width (RBC) [Entitic vol] 51.5 fL 35.1-43.9 [facility] Work Phone: [phone] Erythrocyte distribution width (RBC) [Ratio] 14.3 % 11.6-14.6 [facility] Work Phone: [phone] Immature granulocytes/100 WBC (Bld) 0.400 % 0.0-0.9 [facility] Work Phone: [phone] Comment on above: IG% - Immature Granu locytes (promyelocytes, myelocytes and metamyelocytes) > 1% indicates that a LEFT SHIFT is Present. MCH (RBC) [Entitic mass] 32.3 pg 27.0-32.0 [facility] Work Phone: Nucleated RBC/100 WBC (Bld) [Ratio] 0 % 0-5 [facility] Work Phone: [phone] MCHC Auto (RBC) [Mass/Vol]on 07-09-2021 MCHC (RBC) [Mass/Vol] 33.3 g/dL 32-36 [facility] Work Phone: No Panel Informationon 07-09 Estimated GFR (MDRD) Amer 103 mL/min >60 [facility] Work Phone: [phone] Comment on above: GFR Calc Estimated GFR (MDRD) Non-Af Amer 85 mL/min >60 [facility] Work Phone: Comment on above: Non- GFR Calc Platelets bldon 07-09-2021 Platelets (Bld) [#/Vol] 215 10*3/uL 150-450 [facility] Work Phone: [phone] Serum or plasma C reactive p rotein measurement (mass/volume)on 07-09-2021 CRP [Mass/Vol] mg/L 0.0-3.0 [facility] Work Phone: Comment on above: C-Reactive Protein ( CRP) provides useful information for thediagnosis, therapy and monitoring of inflammatory processesand associated diseases. For the evaluation of Relative Riskfor Cardiovascular Disease, a High Sensitivity CRP (HSCRP)should be ordered. Serum or plasma albumin tammie urement (mass/volume)on 07-09-2021 Albumin [Mass/Vol] 2.8 g/dL 3.2-5.0 [facility] Work Phone: [phone] Serum or plasma albumin/glob ulin mass ratioon 07-09-2021 Albumin/Globulin [Mass ratio] 0.7 {ratio} 0.9-2.4 [facility] Work Phone: [phone] Serum or plasma calcium tammie urement (mass/volume)on 07-09-2021 Calcium [Mass/Vol] 8.6 mg/dL 8.5-10.1 [facility] Work Phone: [phone] Serum or plasma creatinine m easurement (mass/volume)on 07-09-2021 Creatinine [Mass/Vol] 0.73 mg/dL 0.55-1.02 [facility] Work Phone: Comment on above: The validity of the calculated GFR & GFRAA in patients over 70 years has not been determined. Clinical correlation is essential. Serum or plasma urea nitroge n measurement (mass/volume)on 07-09-2021 Urea nitrogen [Mass/Vol] 24 mg/dL 7-18 [facility] Work Phone: Thin prep Papanicolaou smear with manual screeningon 07-09-2021 Thin prep Papanicolaou smear with manual screening 20 U/L 15-37 [facility] Work Phone: Thin prep Papanicolaou smear with manual screening 8 5-15 [facility] Work Phone: Absolute lymphocyte counton 07-02-2021 Lymphocytes Auto (Unsp spec) [#/Vol] 2.06 10*3/uL 0.83-4.51 [facility] Work Phone: Basophil percentageon 2021 Basophils/100 WBC (Bld) 0.7 % 0-1 [facility] Work Phone: Bilirubin [Mass/Vol] 0.50 mg/dL 0.20-1.00 [facility] Work Phone: Comment on above: For patients on eltr ombopag therapy, use of Dimension Bradshaw TBIL is not recommended. Chloride [Moles/Vol] 103 mmol/L 98-107 [facility] Work Phone: Eosinophils/100 WBC (Bld) 1.7 % 0-5 [facility] Work Phone: Glucose [Mass/Vol] 83 mg/dL 74-106 [facility] Work Phone: Neutrophils (Bld) [#/Vol] 5.0 10*3/uL 2.0-7.7 [facility] Work Phone: Neutrophils/100 WBC (Bld) 60.8 % 47-70 [facility] Work Phone: Potassium [Moles/Vol] 4.7 mmol/L 3.5-5.1 [facility] Work Phone: [phone] Comment on above: Moderate Hemolysis, Result may be falsely increased. Protein [Mass/Vol] 7.0 g/dL 6.4-8.2 [facility] Work Phone: [phone] Sodium [Moles/Vol] 135 mmol/L 136-145 [facility] Work Phone: [phone] WBC (Bld) [#/Vol] 8.3 10*3/uL 4.4-11.0 [facility] Work Phone: Blood erythrocytes count (nu mber/volume)on 07-02-2021 RBC (Bld) [#/Vol] 4.11 10*6/uL 4.2-5.4 [facility]: [phone] Blood hemoglobin measurement (mass/volume)on 07-02-2021 Hemoglobin (Bld) [Mass/Vol] 13.2 g/dL 12.0-15.0 [facility] Work Phone: [phone] Blood lymphocytes/100 leukoc yteson 07-02-2021 Lymphocytes/100 WBC (Bld) 24.9 % 19-41 [facility] Work Phone: [phone] Blood monocytes/100 leukocyt eson 07-02-2021 Monocytes/100 WBC (Bld) 11.4 % 0-10 [facility] Work Phone: [phone] Blood platelet mean volumeon 07-02-2021 Platelet mean volume (Bld) [Entitic vol] 11.0 fL 6.2-12.0 [facility] Work Phone: Determination of erythrocyte mean corpuscular volume (MCV)on 07-02-2021 MCV (RBC) [Entitic vol] 98.5 fL 81-99 [facility] Work Phone: Erythrocyte sedimentation ra wade 07-02-2021 ESR (Bld) [Velocity] 7 mm[facility]h 0-30 [facility] Work [facility]: Hematocrit Auto (Bld) [Volum e fraction]on 07-02-2021 Hematocrit (Bld) [Volume fraction] 40.5 % 37-47 [facility] Work Phone: [phone] Laboratory - Chemistry and C hemistry - challengeon 07-02-2021 ALP [Catalytic activity/Vol] 58 U/L 45-117 [facility] Work Phone: [phone] ALT [Catalytic activity/Vol] 21 U/L 13-56 [facility] Work Phone: [phone] CO2 [Moles/Vol] 29.0 mmol/L 21.0-32.0 [facility] Work Phone: [phone] Globulin (S) [Mass/Vol] 4.1 g/dL 2.2-4.2 [facility] Work Phone: [phone] Urea nitrogen/Creatinine [Mass ratio] 31.6 mg/mg 10-20 [facility] Work Phone: [phone] Laboratory - Hematology and Cell countson 07-02-2021 Erythrocyte distribution width (RBC) [Entitic vol] 51.7 fL 35.1-43.9 [facility] Work Phone: [phone] Erythrocyte distribution width (RBC) [Ratio] 14.2 % 11.6-14.6 [facility] Work Phone: [phone] Immature granulocytes/100 WBC (Bld) 0.500 % 0.0-0.9 [facility] Work Phone: [phone] Comment on above: IG% - Immature Granu locytes (promyelocytes, myelocytes and metamyelocytes) > 1% indicates that a LEFT SHIFT is Present. MCH (RBC) [Entitic mass] 32.1 pg 27.0-32.0 [facility] Work Phone: [phone] Nucleated RBC/100 WBC (Bld) [Ratio] 0 % 0-5 [facility] Work Phone: [phone] MCHC Auto (RBC) [Mass/Vol]on 07-02-2021 MCHC (RBC) [Mass/Vol] 32.6 g/dL 32-36 [facility] Work Phone: No Panel Informationon 07-02 Estimated GFR (MDRD) Amer 115 mL/min >60 [facility] Work Phone: Comment on above: GFR Calc Estimated GFR (MDRD) Non-Af Amer 95 mL/min >60 [facility] Work Phone: Comment on above: Non- GFR Calc Platelets bldon 07-02-2021 Platelets (Bld) [#/Vol] 211 10*3/uL 150-450 [facility] Work Phone: Serum or plasma C reactive p rotein measurement (mass/volume)on 07-02-2021 CRP [Mass/Vol] mg/L 0.0-3.0 [facility] Work Phone: Comment on above: C-Reactive Protein ( CRP) provides useful information for thediagnosis, therapy and monitoring of inflammatory processesand associated diseases. For the evaluation of Relative Riskfor Cardiovascular Disease, a High Sensitivity CRP (HSCRP)should be ordered. Serum or plasma albumin tammie urement (mass/volume)on 07-02-2021 Albumin [Mass/Vol] 2.9 g/dL 3.2-5.0 [facility] Work Phone: Serum or plasma albumin/glob ulin mass ratioon 07-02-2021 Albumin/Globulin [Mass ratio] 0.7 {ratio} 0.9-2.4 [facility] Work Phone: Serum or plasma calcium tammie urement (mass/volume)on 07-02-2021 Calcium [Mass/Vol] 8.4 mg/dL 8.5-10.1 [facility] Work Phone: Serum or plasma creatinine m easurement (mass/volume)on 07-02-2021 Creatinine [Mass/Vol] 0.66 mg/dL 0.55-1.02 [facility] Work Phone: Comment on above: The validity of the calculated GFR & GFRAA in patients over 70 years has not been determined. Clinical correlation is essential. Serum or plasma urea nitroge n measurement (mass/volume)on 07-02-2021 Urea nitrogen [Mass/Vol] 21 mg/dL 7-18 [facility] Work Phone: Thin prep Papanicolaou smear with manual screeningon 07-02-2021 Thin prep Papanicolaou smear with manual screening 26 U/L 15-37 [facility] Work Phone: Comment on above: Moderate Hemolysis, Result may be falsely increased. Thin prep Papanicolaou smear with manual screening 3 5-15 [facility] Work Phone: Absolute lymphocyte counton 06-25-2021 Lymphocytes Auto (Unsp spec) [#/Vol] 3.59 10*3/uL 0.83-4.51 [facility] Work Phone: Basophil percentageon 2021 Basophils/100 WBC (Bld) 1.2 % 0-1 [facility] Work Phone: Bilirubin [Mass/Vol] 0.40 mg/dL 0.20-1.00 [facility] Work Phone: Comment on above: For patients on eltr ombopag therapy, use of Dimension Bradshaw TBIL is not recommended. Chloride [Moles/Vol] 105 mmol/L 98-107 [facility] Work Phone: Eosinophils/100 WBC (Bld) 2.0 % 0-5 [facility] Work Phone: Glucose [Mass/Vol] 82 mg/dL 74-106 [facility] Work Phone: Neutrophils (Bld) [#/Vol] 4.0 10*3/uL 2.0-7.7 [facility] Work Phone: Neutrophils/100 WBC (Bld) 47.0 % 47-70 [facility] Work Phone: Potassium [Moles/Vol] 4.7 mmol/L 3.5-5.1 [facility] Work Phone: Protein [Mass/Vol] 7.4 g/dL 6.4-8.2 [facility] Work Phone: Sodium [Moles/Vol] 138 mmol/L 136-145 [facility] Work Phone: [phone] WBC (Bld) [#/Vol] 8.6 10*3/uL 4.4-11.0 [facility] Work Phone: [phone] Blood erythrocytes count (nu mber/volume)on 06-25-2021 RBC (Bld) [#/Vol] 4.57 10*6/uL 4.2-5.4 [facility] Work [facility]: [phone] Blood hemoglobin measurement (mass/volume)on 06-25-2021 Hemoglobin (Bld) [Mass/Vol] 13.8 g/dL 12.0-15.0 [facility] Work Phone: [phone] Blood lymphocytes/100 leukoc yteson 06-25-2021 Lymphocytes/100 WBC (Bld) 42.0 % 19-41 [facility] Work Phone: [phone] Blood monocytes/100 leukocyt eson 06-25-2021 Monocytes/100 WBC (Bld) 7.6 % 0-10 [facility] Work Phone: [phone] Blood platelet mean volumeon 06-25-2021 Platelet mean volume (Bld) [Entitic vol] 11.4 fL 6.2-12.0 [facility] Work Phone: [phone] Determination of erythrocyte mean corpuscular volume (MCV)on 06-25-2021 MCV (RBC) [Entitic vol] 96.1 fL 81-99 [facility] Work Phone: [phone] Erythrocyte sedimentation ra wade 06-25-2021 ESR (Bld) [Velocity] 18 mm[facility]h 0-[facility] Work [facility]: [phone] Hematocrit Auto (Bld) [Volum e fraction]on 06-25-2021 Hematocrit (Bld) [Volume fraction] 43.9 % 37-47 [facility] Work Phone: [phone] Laboratory - Chemistry and C hemistry - challengeon 06-25-2021 ALP [Catalytic activity/Vol] 72 U/L 45-117 [facility] Work Phone: [phone] ALT [Catalytic activity/Vol] 19 U/L 13-56 [facility] Work Phone: [phone] CO2 [Moles/Vol] 26.0 mmol/L 21.0-32.0 [facility] Work Phone: [phone] Globulin (S) [Mass/Vol] 4.3 g/dL 2.2-4.2 [facility] Work Phone: [phone] Urea nitrogen/Creatinine [Mass ratio] 35.0 mg/mg 10-20 [facility] Work Phone: [phone] Laboratory - Hematology and Cell countson 06-25-2021 Erythrocyte distribution width (RBC) [Entitic vol] 51.1 fL 35.1-43.9 [facility] Work Phone: [phone] Erythrocyte distribution width (RBC) [Ratio] 14.4 % 11.6-14.6 [facility] Work Phone: [phone] Immature granulocytes/100 WBC (Bld) 0.200 % 0.0-0.9 [facility] Work Phone: [phone] Comment on above: IG% - Immature Granu locytes (promyelocytes, myelocytes and metamyelocytes) > 1% indicates that a LEFT SHIFT is Present. MCH (RBC) [Entitic mass] 30.2 pg 27.0-32.0 [facility] Work Phone: [phone] Nucleated RBC/100 WBC (Bld) [Ratio] 0 % 0-5 [facility] Work Phone: [phone] MCHC Auto (RBC) [Mass/Vol]on 06-25-2021 MCHC (RBC) [Mass/Vol] 31.4 g/dL 32-36 [facility] Work Phone: [phone] No Panel Informationon 06-25 Estimated GFR (MDRD) Amer 122 mL/min >60 [facility] Work Phone: [phone] Comment on above: GFR Calc Estimated GFR (MDRD) Non-Af Amer 101 mL/min >60 [facility] Work Phone: Comment on above: Non- GFR Calc Platelets bldon 06-25-2021 Platelets (Bld) [#/Vol] 244 10*3/uL 150-450 [facility] Work Phone: Serum or plasma C reactive p rotein measurement (mass/volume)on 06-25-2021 CRP [Mass/Vol] 8.29 mg/L 0.0-3.0 [facility] Work Phone: Comment on above: C-Reactive Protein ( CRP) provides useful information for thediagnosis, therapy and monitoring of inflammatory processesand associated diseases. For the evaluation of Relative Riskfor Cardiovascular Disease, a High Sensitivity CRP (HSCRP)should be ordered. Serum or plasma albumin tammie urement (mass/volume)on 06-25-2021 Albumin [Mass/Vol] 3.1 g/dL 3.2-5.0 [facility] Work Phone: Serum or plasma albumin/glob ulin mass ratioon 06-25-2021 Albumin/Globulin [Mass ratio] 0.7 {ratio} 0.9-2.4 [facility] Work Phone: [phone] Serum or plasma calcium tammie urement (mass/volume)on 06-25-2021 Calcium [Mass/Vol] 9.0 mg/dL 8.5-10.1 [facility] Work Phone: Serum or plasma creatinine m easurement (mass/volume)on 06-25-2021 Creatinine [Mass/Vol] 0.63 mg/dL 0.55-1.02 [facility] Work Phone: Comment on above: The validity of the calculated GFR & GFRAA in patients over 70 years has not been determined. Clinical correlation is essential. Serum or plasma urea nitroge n measurement (mass/volume)on 06-25-2021 Urea nitrogen [Mass/Vol] 22 mg/dL 7-18 [facility] Work Phone: Thin prep Papanicolaou smear with manual screeningon 06-25-2021 Thin prep Papanicolaou smear with manual screening 17 U/L 15-37 [facility] Work Phone: Thin prep Papanicolaou smear with manual screening 7 5-15 [facility] Work Phone: Absolute lymphocyte counton 06-18-2021 Lymphocytes Auto (Unsp spec) [#/Vol] 2.33 10*3/uL 0.83-4.51 [facility] Work Phone: Basophil percentageon 2021 Basophils/100 WBC (Bld) 0.8 % 0-1 [facility] Work Phone: Bilirubin [Mass/Vol] 0.30 mg/dL 0.20-1.00 [facility] Work Phone: Comment on above: For patients on eltr ombopag therapy, use of Dimension [place]shaw TBIL is not recommended. Chloride [Moles/Vol] 100 mmol/L 98-107 [facility] Work Phone: Eosinophils/100 WBC (Bld) 1.8 % 0-5 [facility] Work Phone: Glucose [Mass/Vol] 81 mg/dL 74-106 [facility] Work Phone: Neutrophils (Bld) [#/Vol] 4.6 10*3/uL 2.0-7.7 [facility] Work Phone: Neutrophils/100 WBC (Bld) 58.4 % 47-70 [facility] Work Phone: Potassium [Moles/Vol] 4.5 mmol/L 3.5-5.1 [facility] Work Phone: Protein [Mass/Vol] 7.4 g/dL 6.4-8.2 [facility] Work Phone: Sodium [Moles/Vol] 135 mmol/L 136-145 [facility] Work Phone: WBC (Bld) [#/Vol] 7.9 10*3/uL 4.4-11.0 [facility] Work Phone: Blood erythrocytes count (nu mber/volume)on 06-18-2021 RBC (Bld) [#/Vol] 4.36 10*6/uL 4.2-5.4 [facility] Work Phone: Blood hemoglobin measurement (mass/volume)on 06-18-2021 Hemoglobin (Bld) [Mass/Vol] 13.6 g/dL 12.0-15.0 [facility] Work Phone: [phone] Blood lymphocytes/100 leukoc yteson 06-18-2021 Lymphocytes/100 WBC (Bld) 29.6 % 19-41 [facility] Work Phone: [phone] Blood monocytes/100 leukocyt eson 06-18-2021 Monocytes/100 WBC (Bld) 9.0 % 0-10 [facility] Work Phone: Blood platelet mean volumeon 06-18-2021 Platelet mean volume (Bld) [Entitic vol] 11.1 fL 6.2-12.0 [facility] Work Phone: Determination of erythrocyte mean corpuscular volume (MCV)on 06-18-2021 MCV (RBC) [Entitic vol] 95.9 fL 81-99 [facility] Work Phone: Erythrocyte sedimentation ra wade 06-18-2021 ESR (Bld) [Velocity] 6 mm/h 0-30 [facility] Work Phone: [phone] Hematocrit Auto (Bld) [Volum e fraction]on 06-18-2021 Hematocrit (Bld) [Volume fraction] 41.8 % 37-47 [facility] Work Phone: Laboratory - Chemistry and C hemistry - challengeon 06-18-2021 ALP [Catalytic activity/Vol] 66 U/L 45-117 [facility] Work Phone: ALT [Catalytic activity/Vol] 24 U/L 13-56 [facility] Work Phone: [phone] CO2 [Moles/Vol] 28.0 mmol/L 21.0-32.0 [facility] Work Phone: [phone] Globulin (S) [Mass/Vol] 4.3 g/dL 2.2-4.2 [facility] Work Phone: [phone] Urea nitrogen/Creatinine [Mass ratio] 29.9 mg/mg 10-20 [facility] Work Phone: [phone] Laboratory - Hematology and Cell countson 06-18-2021 Erythrocyte distribution width (RBC) [Entitic vol] 51.1 fL 35.1-43.9 [facility] Work Phone: [phone] Erythrocyte distribution width (RBC) [Ratio] 14.4 % 11.6-14.6 [facility] Work Phone: [phone] Immature granulocytes/100 WBC (Bld) 0.400 % 0.0-0.9 [facility] Work Phone: [phone] Comment on above: IG% - Immature Granu locytes (promyelocytes, myelocytes and metamyelocytes) > 1% indicates that a LEFT SHIFT is Present. MCH (RBC) [Entitic mass] 31.2 pg 27.0-32.0 [facility] Work Phone: [phone] Nucleated RBC/100 WBC (Bld) [Ratio] 0 % 0-5 [facility] Work Phone: [phone] MCHC Auto (RBC) [Mass/Vol]on 06-18-2021 MCHC (RBC) [Mass/Vol] 32.5 g/dL 32-36 [facility] Work Phone: No Panel Informationon 06-18 Estimated GFR (MDRD) Amer 114 mL/min >60 [facility] Work Phone: [phone] Comment on above: GFR Calc Estimated GFR (MDRD) Non-Af Amer 94 mL/min >60 [facility] Work Phone: [phone] Comment on above: Non- GFR Calc Platelets bldon 06-18-2021 Platelets (Bld) [#/Vol] 195 10*3/uL 150-450 [facility] Work Phone: [phone] Serum or plasma C reactive p rotein measurement (mass/volume)on 06-18-2021 CRP [Mass/Vol] 4.20 mg/L 0.0-3.0 [facility] Work Phone: Comment on above: C-Reactive Protein ( CRP) provides useful information for thediagnosis, therapy and monitoring of inflammatory processesand associated diseases. For the evaluation of Relative Riskfor Cardiovascular Disease, a High Sensitivity CRP (HSCRP)should be ordered. Serum or plasma albumin tammie urement (mass/volume)on 06-18-2021 Albumin [Mass/Vol] 3.1 g/dL 3.2-5.0 [facility] Work Phone: [phone] Serum or plasma albumin/glob ulin mass ratioon 06-18-2021 Albumin/Globulin [Mass ratio] 0.7 {ratio} 0.9-2.4 [facility] Work Phone: [phone] Serum or plasma calcium tammie urement (mass/volume)on 06-18-2021 Calcium [Mass/Vol] 8.6 mg/dL 8.5-10.1 [facility] Work Phone: [phone] Serum or plasma creatinine m easurement (mass/volume)on 06-18-2021 Creatinine [Mass/Vol] 0.67 mg/dL 0.55-1.02 [facility] Work Phone: Comment on above: The validity of the calculated GFR & GFRAA in patients over 70 years has not been determined. Clinical correlation is essential. Serum or plasma urea nitroge n measurement (mass/volume)on 06-18-2021 Urea nitrogen [Mass/Vol] 20 mg/dL -18 [facility] Work Phone: [phone] Thin prep Papanicolaou smear with manual screeningon 06-18-2021 Thin prep Papanicolaou smear with manual screening 22 U/L 15-37 [facility] Work Phone: [phone] Thin prep Papanicolaou smear with manual screening 7 5-15 [facility] Work Phone: [phone] Absolute lymphocyte counton 06-11-2021 Lymphocytes Auto (Unsp spec) [#/Vol] 2.02 10*3/uL 0.83-4.51 [facility] Work Phone: [phone] Basophil percentageon 2021 Basophils/100 WBC (Bld) 0.8 % 0-1 [facility] Work Phone: Bilirubin [Mass/Vol] 0.40 mg/dL 0.20-1.00 [facility] Work Phone: Comment on above: For patients on eltr ombopag therapy, use of Dimension Bradshaw TBIL is not recommended. Chloride [Moles/Vol] 101 mmol/L 98-107 [facility] Work Phone: Eosinophils/100 WBC (Bld) 2.0 % 0-5 [facility] Work Phone: Glucose [Mass/Vol] 84 mg/dL 74-106 [facility] Work Phone: Comment on above: Please note revised GLUCOSE reference range effective 2017. Neutrophils (Bld) [#/Vol] 4.5 10*3/uL 2.0-7.7 [facility] Work Phone: Neutrophils/100 WBC (Bld) 58.4 % 47-70 [facility] Work Phone: Potassium [Moles/Vol] 4.4 mmol/L 3.5-5.1 [facility] Work Phone: Protein [Mass/Vol] 6.9 g/dL 6.4-8.2 [facility] Work Phone: Sodium [Moles/Vol] 137 mmol/L 136-145 [facility] Work Phone: WBC (Bld) [#/Vol] 7.6 10*3/uL 4.4-11.0 [facility] Work Phone: Blood erythrocytes count (nu mber/volume)on 06-11-2021 RBC (Bld) [#/Vol] 4.08 10*6/uL 4.2-5.4 [facility] Work Phone: [phone] Blood hemoglobin measurement (mass/volume)on 06-11-2021 Hemoglobin (Bld) [Mass/Vol] 12.9 g/dL 12.0-15.0 [facility] Work Phone: Blood lymphocytes/100 leukoc yteson 06-11-2021 Lymphocytes/100 WBC (Bld) 26.4 % 19-41 [facility] Work Phone: [phone] Blood monocytes/100 leukocyt eson 06-11-2021 Monocytes/100 WBC (Bld) 12.0 % 0-10 [facility] Work Phone: [phone] Blood platelet mean volumeon 06-11-2021 Platelet mean volume (Bld) [Entitic vol] 11.1 fL 6.2-12.0 [facility] Work Phone: Determination of erythrocyte mean corpuscular volume (MCV)on 06-11-2021 MCV (RBC) [Entitic vol] 95.6 fL 81-99 [facility] Work Phone: Erythrocyte sedimentation ra wade 06-11-2021 ESR (Bld) [Velocity] 12 mm/h 0-30 [facility]: Hematocrit Auto (Bld) [Volum e fraction]on 06-11-2021 Hematocrit (Bld) [Volume fraction] 39.0 % 37-47 [facility] Work Phone: Laboratory - Chemistry and C hemistry - challengeon 06-11-2021 ALP [Catalytic activity/Vol] 61 U/L 45-117 [facility] Work Phone: [phone] ALT [Catalytic activity/Vol] 23 U/L 13-56 [facility] Work Phone: [phone] CO2 [Moles/Vol] 30.0 mmol/L 21.0-32.0 [facility] Work Phone: [phone] Globulin (S) [Mass/Vol] 4.2 g/dL 2.2-4.2 [facility] Work Phone: [phone] Urea nitrogen/Creatinine [Mass ratio] 28.7 mg/mg 10-20 [facility] Work Phone: Laboratory - Hematology and Cell countson 06-11-2021 Erythrocyte distribution width (RBC) [Entitic vol] 51.7 fL 35.1-43.9 [facility] Work Phone: [phone] Erythrocyte distribution width (RBC) [Ratio] 14.8 % 11.6-14.6 [facility] Work Phone: [phone] Immature granulocytes/100 WBC (Bld) 0.400 % 0.0-0.9 [facility] Work Phone: [phone] Comment on above: IG% - Immature Granu locytes (promyelocytes, myelocytes and metamyelocytes) > 1% indicates that a LEFT SHIFT is Present. MCH (RBC) [Entitic mass] 31.6 pg 27.0-32.0 [facility] Work Phone: [phone] Nucleated RBC/100 WBC (Bld) [Ratio] 0 % 0-5 [facility] Work Phone: [phone] MCHC Auto (RBC) [Mass/Vol]on 06-11-2021 MCHC (RBC) [Mass/Vol] 33.1 g/dL 32-36 [facility] Work Phone: No Panel Informationon 06-11 Estimated GFR (MDRD) Amer 123 mL/min >60 [facility] Work Phone: Comment on above: GFR Calc Estimated GFR (MDRD) Non-Af Amer 101 mL/min >60 [facility] Work Phone: [phone] Comment on above: Non- GFR Calc Platelets bldon 06-11-2021 Platelets (Bld) [#/Vol] 194 10*3/uL 150-450 [facility] Work Phone: [phone] Serum or plasma C reactive p rotein measurement (mass/volume)on 06-11-2021 CRP [Mass/Vol] 3.14 mg/L 0.0-3.0 [facility] Work Phone: [phone] Comment on above: C-Reactive Protein ( CRP) provides useful information for thediagnosis, therapy and monitoring of inflammatory processesand associated diseases. For the evaluation of Relative Riskfor Cardiovascular Disease, a High Sensitivity CRP (HSCRP)should be ordered. Serum or plasma albumin tammie urement (mass/volume)on 06-11-2021 Albumin [Mass/Vol] 2.7 g/dL 3.2-5.0 [facility] Work Phone: [phone] Serum or plasma albumin/glob ulin mass ratioon 06-11-2021 Albumin/Globulin [Mass ratio] 0.6 {ratio} 0.9-2.4 [facility] Work Phone: [phone] Serum or plasma calcium tammie urement (mass/volume)on 06-11-2021 Calcium [Mass/Vol] 8.5 mg/dL 8.5-10.1 [facility] Work Phone: [phone] Serum or plasma creatinine m easurement (mass/volume)on 06-11-2021 Creatinine [Mass/Vol] 0.63 mg/dL 0.55-1.02 [facility] Work Phone: Comment on above: The validity of the calculated GFR & GFRAA in patients over 70 years has not been determined. Clinical correlation is essential. Serum or plasma urea nitroge n measurement (mass/volume)on 06-11-2021 Urea nitrogen [Mass/Vol] 18 mg/dL 7-18 [facility] Work Phone: [phone] Thin prep Papanicolaou smear with manual screeningon 06-11-2021 Thin prep Papanicolaou smear with manual screening 17 U/L 15-37 [facility] Work Phone: [phone] Thin prep Papanicolaou smear with manual screening 6 5-15 [facility] Work Phone: [phone] Absolute lymphocyte counton 06-04-2021 Lymphocytes Auto (Unsp spec) [#/Vol] 3.89 10*3/uL 0.83-4.51 [facility] Work Phone: [phone] Basophil percentageon 2021 Basophils/100 WBC (Bld) 0.9 % 0-1 [facility] Work Phone: [phone] Bilirubin [Mass/Vol] 0.30 mg/dL 0.20-1.00 [facility] Work Phone: [phone] Comment on above: For patients on eltr ombopag therapy, use of Dimension Bradshaw TBIL is not recommended. Chloride [Moles/Vol] 102 mmol/L 98-107 [facility] Work Phone: Eosinophils/100 WBC (Bld) 2.1 % 0-5 [facility] Work [phone] Glucose [Mass/Vol] 97 mg/dL 74-106 [facility] Work Phone: Comment on above: Please note revised GLUCOSE reference range effective 2017. Neutrophils (Bld) [#/Vol] 4.9 10*3/uL 2.0-7.7 [facility] Work Phone: Neutrophils/100 WBC (Bld) 50.4 % 47-70 [facility] Work Phone: Potassium [Moles/Vol] 4.8 mmol/L 3.5-5.1 [facility] Work Phone: Comment on above: Slight Hemolysis, Re sult may be falsely increased. Protein [Mass/Vol] 7.8 g/dL 6.4-8.2 [facility] Work Phone: Sodium [Moles/Vol] 138 mmol/L 136-145 [facility] Work Phone: WBC (Bld) [#/Vol] 9.8 10*3/uL 4.4-11.0 [facility] Work Phone: Blood erythrocytes count (nu mber/volume)on 06-04-2021 RBC (Bld) [#/Vol] 4.45 10*6/uL 4.2-5.4 [facility] Work Phone: Blood hemoglobin measurement (mass/volume)on 06-04-2021 Hemoglobin (Bld) [Mass/Vol] 13.5 g/dL 12.0-15.0 [facility] Work Phone: Blood lymphocytes/100 leukoc yteson 06-04-2021 Lymphocytes/100 WBC (Bld) 39.6 % 19-41 [facility] Work Phone: Blood monocytes/100 leukocyt eson 06-04-2021 Monocytes/100 WBC (Bld) 6.6 % 0-10 [facility] Work Phone: Blood platelet mean volumeon 06-04-2021 Platelet mean volume (Bld) [Entitic vol] 11.0 fL 6.2-12.0 [facility] Work Phone: Determination of erythrocyte mean corpuscular volume (MCV)on 06-04-2021 MCV (RBC) [Entitic vol] 95.7 fL 81-99 [facility] Work Phone: Erythrocyte sedimentation ra wade 06-04-2021 ESR (Bld) [Velocity] 12 mm/h 0-30 [facility] Work Phone: [phone] Hematocrit Auto (Bld) [Volum e fraction]on 06-04-2021 Hematocrit (Bld) [Volume fraction] 42.6 % 37-47 [facility] Work Phone: Laboratory - Chemistry and C hemistry - challengeon 06-04-2021 ALP [Catalytic activity/Vol] 71 U/L 45-117 [facility] Work Phone: [phone] ALT [Catalytic activity/Vol] 27 U/L 13-56 [facility] Work Phone: [phone] CO2 [Moles/Vol] 27.0 mmol/L 21.0-32.0 [facility] Work Phone: Globulin (S) [Mass/Vol] 4.7 g/dL 2.2-4.2 [facility] Work Phone: [phone] Urea nitrogen/Creatinine [Mass ratio] 31.2 mg/mg 10-20 [facility] Work Phone: Laboratory - Hematology and Cell countson 06-04-2021 Erythrocyte distribution width (RBC) [Entitic vol] 52.3 fL 35.1-43.9 [facility] Work Phone: [phone] Erythrocyte distribution width (RBC) [Ratio] 14.7 % 11.6-14.6 [facility] Work Phone: [phone] Immature granulocytes/100 WBC (Bld) 0.400 % 0.0-0.9 [facility] Work Phone: Comment on above: IG% - Immature Granu locytes (promyelocytes, myelocytes and metamyelocytes) > 1% indicates that a LEFT SHIFT is Present. MCH (RBC) [Entitic mass] 30.3 pg 27.0-32.0 [facility] Work Phone: [phone] Nucleated RBC/100 WBC (Bld) [Ratio] 0 % 0-5 [facility] Work Phone: [phone] MCHC Auto (RBC) [Mass/Vol]on 06-04-2021 MCHC (RBC) [Mass/Vol] 31.7 g/dL 32-36 [facility] Work Phone: [phone] No Panel Informationon 06-04 Estimated GFR (MDRD) Amer 107 mL/min >60 [facility] Work Phone: Comment on above: GFR Calc Estimated GFR (MDRD) Non-Af Amer 88 mL/min >60 [facility] Work Phone: [phone] Comment on above: Non- GFR Calc Platelets bldon 06-04-2021 Platelets (Bld) [#/Vol] 279 10*3/uL 150-450 [facility] Work Phone: Serum or plasma C reactive p rotein measurement (mass/volume)on 06-04-2021 CRP [Mass/Vol] 3.79 mg/L 0.0-3.0 [facility] Work Phone: [phone] Comment on above: C-Reactive Protein ( CRP) provides useful information for thediagnosis, therapy and monitoring of inflammatory processesand associated diseases. For the evaluation of Relative Riskfor Cardiovascular Disease, a High Sensitivity CRP (HSCRP)should be ordered. Serum or plasma albumin tammie urement (mass/volume)on 06-04-2021 Albumin [Mass/Vol] 3.1 g/dL 3.2-5.0 [facility] Work Phone: [phone] Serum or plasma albumin/glob ulin mass ratioon 06-04-2021 Albumin/Globulin [Mass ratio] 0.7 {ratio} 0.9-2.4 [facility] Work Phone: [phone] Serum or plasma calcium tammie urement (mass/volume)on 06-04-2021 Calcium [Mass/Vol] 9.0 mg/dL 8.5-10.1 [facility] Work Phone: [phone] Serum or plasma creatinine m easurement (mass/volume)on 06-04-2021 Creatinine [Mass/Vol] 0.71 mg/dL 0.55-1.02 [employer] [facility] Work Phone: [phone] Comment on above: The validity of the calculated GFR & GFRAA in patients over 70 years has not been determined. Clinical correlation is essential. Serum or plasma urea nitroge n measurement (mass/volume)on 06-04-2021 Urea nitrogen [Mass/Vol] 22 mg/dL 7-18 [facility] Work Phone: [phone] Thin prep Papanicolaou smear with manual screeningon 06-04-2021 Thin prep Papanicolaou smear with manual screening 22 U/L 15-37 [facility] Work Phone: [phone] Comment on above: Slight Hemolysis, Re sult may be falsely increased. Thin prep Papanicolaou smear with manual screening 9 5-15 [facility] Work Phone: [phone] Absolute lymphocyte counton 05-28-2021 Lymphocytes Auto (Unsp spec) [#/Vol] 2.83 10*3/uL 0.83-4.51 [facility] Work Phone: [phone] Basophil percentageon 2020 Bilirubin [Mass/Vol] 0.30 mg/dL 0.20-1.00 [facility] Work Phone: [phone] Comment on above: For patients on eltr ombopag therapy, use of Dimension [place]shaw TBIL is not recommended. Chloride [Moles/Vol] 104 mmol/L 98-107 [facility] Work Phone: [phone] Eosinophils/100 WBC (Bld) 2.0 % 0-5 [facility] Work Phone: Glucose [Mass/Vol] 85 mg/dL 74-106 [facility] Work Phone: [phone] Comment on above: Please note revised GLUCOSE reference range effective 2017. Neutrophils (Bld) [#/Vol] 4.9 10*3/uL 2.0-7.7 [facility] Work Phone: [phone] Potassium [Moles/Vol] 4.3 mmol/L 3.5-5.1 [facility] Work Phone: Protein [Mass/Vol] 7.2 g/dL 6.4-8.2 [facility] Work Phone: [phone] Sodium [Moles/Vol] 137 mmol/L 136-145 [facility] Work Phone: [phone] WBC (Bld) [#/Vol] 8.9 10*3/uL 4.4-11.0 [facility] Work Phone: Blood erythrocytes count (nu mber/volume)on 05-28-2021 RBC (Bld) [#/Vol] 4.29 10*6/uL 4.2-5.4 [facility] Work Phone: Blood hemoglobin measurement (mass/volume)on 05-28-2021 Hemoglobin (Bld) [Mass/Vol] 13.3 g/dL 12.0-15.0 [facility] Work Phone: Blood lymphocytes/100 leukoc yteson 05-28-2021 Lymphocytes/100 WBC (Bld) 31.9 % 19-41 [facility] Work Phone: Blood monocytes/100 leukocyt eson 05-28-2021 Monocytes/100 WBC (Bld) 9.5 % 0-10 [facility] Work Phone: Blood platelet mean volumeon 05-28-2021 Platelet mean volume (Bld) [Entitic vol] 10.6 fL 6.2-12.0 [facility] Work Phone: Determination of erythrocyte mean corpuscular volume (MCV)on 05-28-2021 MCV (RBC) [Entitic vol] 93.2 fL 81-99 [facility] Work Phone: [phone] Erythrocyte sedimentation ra wade 05-28-2021 ESR (Bld) [Velocity] 15 mm/h 0-30 [facility] Work Phone: [phone] Hematocrit Auto (Bld) [Volum e fraction]on 05-28-2021 Hematocrit (Bld) [Volume fraction] 40.0 % 37-47 [facility] Work Phone: [phone] Laboratory - Chemistry and C hemistry - challengeon 05-28-2021 ALP [Catalytic activity/Vol] 75 U/L 45-117 [facility] Work Phone: [phone] ALT [Catalytic activity/Vol] 24 U/L 13-56 [facility] Work Phone: [phone] CO2 [Moles/Vol] 26.0 mmol/L 21.0-32.0 [facility] Work Phone: [phone] Globulin (S) [Mass/Vol] 4.4 g/dL 2.2-4.2 [facility] Work Phone: [phone] Urea nitrogen/Creatinine [Mass ratio] 36.5 mg/mg 10-20 [facility] Work Phone: Laboratory - Hematology and Cell countson 05-28-2021 Basophils/100 WBC (Unsp spec) 0.9 % 0-1 [facility] Work Phone: [phone] Erythrocyte distribution width (RBC) [Entitic vol] 51.4 fL 35.1-43.9 [facility] Work Phone: [phone] Erythrocyte distribution width (RBC) [Ratio] 14.8 % 11.6-14.6 [facility] Work Phone: [phone] Immature granulocytes/100 WBC (Bld) 0.300 % 0.0-0.9 [facility] Work Phone: [phone] Comment on above: IG% - Immature Granu locytes (promyelocytes, myelocytes and metamyelocytes) > 1% indicates that a LEFT SHIFT is Present. MCH (RBC) [Entitic mass] 31.0 pg 27.0-32.0 [facility] Work Phone: Neutrophils/100 WBC (Bld) 55.4 % 47-70 [facility] Work Phone: [phone] Nucleated RBC/100 WBC (Bld) [Ratio] 0 % 0-5 [facility] Work Phone: MCHC Auto (RBC) [Mass/Vol]on 05-28-2021 MCHC (RBC) [Mass/Vol] 33.3 g/dL 32-36 [facility] Work Phone: No Panel Informationon 05-28 Estimated GFR (MDRD) Amer 116 mL/min >60 [facility] Work Phone: Comment on above: GFR Calc Estimated GFR (MDRD) Non-Af Amer 96 mL/min >60 [facility] Work Phone: Comment on above: Non- GFR Calc Platelets bldon 05-28-2021 Platelets (Bld) [#/Vol] 221 10*3/uL 150-450 [facility] Work Phone: Serum or plasma C reactive p rotein measurement (mass/volume)on 05-28-2021 CRP [Mass/Vol] 4.87 mg/L 0.0-3.0 [facility] Work Phone: Comment on above: C-Reactive Protein ( CRP) provides useful information for thediagnosis, therapy and monitoring of inflammatory processesand associated diseases. For the evaluation of Relative Riskfor Cardiovascular Disease, a High Sensitivity CRP (HSCRP)should be ordered. Serum or plasma albumin tammie urement (mass/volume)on 05-28-2021 Albumin [Mass/Vol] 2.8 g/dL 3.2-5.0 [facility] Work Phone: [phone] Serum or plasma albumin/glob ulin mass ratioon 05-28-2021 Albumin/Globulin [Mass ratio] 0.6 {ratio} 0.9-2.4 [facility] Work Phone: [phone] Serum or plasma calcium tammie urement (mass/volume)on 05-28-2021 Calcium [Mass/Vol] 8.9 mg/dL 8.5-10.1 [facility] Work Phone: Serum or plasma creatinine m easurement (mass/volume)on 05-28-2021 Creatinine [Mass/Vol] 0.66 mg/dL 0.55-1.02 [facility] Work Phone: Comment on above: The validity of the calculated GFR & GFRAA in patients over 70 years has not been determined. Clinical correlation is essential. Serum or plasma urea nitroge n measurement (mass/volume)on 05-28-2021 Urea nitrogen [Mass/Vol] 24 mg/dL 7-18 [facility] Work Phone: Thin prep Papanicolaou smear with manual screeningon 05-28-2021 Thin prep Papanicolaou smear with manual screening 22 U/L 15-37 [facility] Work Phone: Thin prep Papanicolaou smear with manual screening 7 5-15 [facility] Work Phone: CNPNon 02-28-2021 CNPN Telephone ([facility]PRAD) CHARLIE NGUYEN ([id number]) 1955 F Date Time Provider Department 02/28/21 KELVIN ESPINO During your visit today, we recorded the following information about you: Kelvin Espino MD 02/28/2021 1:54 PM Addendum Call from [facility] ([facility] from [facility]). Pt has developed a faint rash on [...] of right knee [M17.11] MS (multiple sclerosis) ([facility]) [G35] Essential hypertension [I10] 02/13/2016 Lumbar disc [...] [Z79.891] 0 (more content not included)... Normal [facility] CTA CHEST W WO CONTRASTOrder ed By: Nehal Madden on 01-15-2021 Patient Name: CHARLIE NGUYEN Computed Tomography ACCESSION EXAM DATE/TIME PROCEDURE ORDERING PROVIDER [id number] 01/15/2021 14:48 EDT CTA Chest w/ + w/o [id number] Araseli SANCHEZ CPT code 43007 Q9967 Reason For Exam (CTA Chest w/ [...] were concurrently generated by me on the Button workstation to better visualize gross vascular anatomy. [...] Phone: [facility], [facility] Results From [facility] - 01/15/2021 3:29 PM EDT [facility]: [id number] ACCESSION EXAM DATE/TIME PROCEDURE ORDERING PROVIDER [id number] 01/15/2021 14:48 EDT CTA Chest w/ + w/o [id number] -Araseli MADDEN NEHAL CPT code 20015 Q9967 Reason For Exam (CTA Chest w/ [...] were concurrently generated by me on the Button workstation to better visualize gross vascular anatomy. [...] and Time: 01/15/2021 3:29 [facility] Work Phone: [facility] Work Phone: Comprehensive Metabolic Pane l w/ Reflex to MGOrdered By: Nehal Madden on 01-15-2021 EGFR IF NonAfrican Ecuadorean >90.0 >60 mL/min [facility] Work Phone: Comment [...] 29.9 mmol/L High 23.0 - 27.0 mmol/L [employer] Work Phone: [phone] Albumin [Mass/Vol] 3.7 g/dL 3.5 - 5.0 g/dL [employer] Work Phone: [phone] ALP (Bld) [Catalytic activity/Vol] 100 U/L 38 - 126 U/L [employer] Work Phone: ALT [Catalytic activity/Vol] 11 U/L 0 - 34 U/L [employer] Work Phone: Comment on above: The ALT test is perf ormed by an updated assay method. Please note that the reference intervals have been changed and are now sex specific. Anion gap [Moles/Vol] 5 mmol/L 3 - 13 mmol/L [employer] Work Phone: [phone] AST [Catalytic activity/Vol] 28 U/L 15 - 46 U/L [employer] Work Phone: [phone] Bilirubin [Mass/Vol] 0.4 mg/dL 0.2 - 1 .3 mg/dL [employer] Work Phone: [phone] Calcium [Mass/Vol] 10.2 mg/dL 8.4 - 10. 4 mg/dL [facility] Work Phone: [phone] Chloride [Moles/Vol] 104 mmol/L 98 - 10 7 mmol/L [facility] Work Phone: [phone] [Moles/Vol] 29 mmol/L 22 - 30 mmol/L [facility] Work Phone: [phone] Creatinine [Mass/Vol] 0.62 mg/dL 0.52 - 1.25 mg/dL [facility] Work Phone: [phone] Free PSA/Total PSA [Mass fraction] 7.4 g/dL 6.3 - 8.2 g/dL [facility] Work Phone: [phone] GFR/1.73 sq M.predicted among blacks MDRD (S/P/Bld) [Vol rate/Area] mL/min/{1.73_m2} >60 mL/min [facility] Work Phone: [phone] Glucose [Mass/Vol] 103 mg/dL High 70 - 100 mg/dL [facility] Work Phone: [phone] Lipase [Catalytic activity/Vol] 86 U/L 23 - 300 U/L [facility] Work Phone: [phone] Potassium [Moles/Vol] 4.2 mmol/L 3.5 - 5.1 mmol/L [facility] Work Phone: [phone] Sodium [Moles/Vol] 139 mmol/L 135 - 145 mmol/L [facility] Work Phone: [phone] Urea nitrogen (BldV) [Mass/Vol] 18 mg/dL 7 - 20 mg/dL [facility] Work Phone: [phone] Lactate [Moles/Vol] 1.1 mmol/L 0.7 - 2. 0 mmol/L [facility] Work Phone: [phone] Hemoglobin.gastrointesti nal spec 1 Ql (Stl) 11.8 g/dL 11.7 - 16.0 g/dL [facility] Work Phone: [phone] Laboratory - Hematology and Cell countsOrdered By: Nehal Madden on 01-15-2021 Basophils/100 WBC (Bld) 0.2 % 0.0 - 2.0 % [facility] Work Phone: Eosinophils (Bld) [#/Vol] 0.6 10*3/uL High 0.0 - 0.5 10*3/uL [facility] Work Phone: 22 Eosinophils/100 WBC (Bld) 4.0 % 1.0 - 6.0 % [employer] Work Phone: [phone] Granulocytes/100 WBC (Bld) 84.8 % High 40.0 - 80.0 % [employer] Work Phone: 22 Hematocrit (Bld) [Volume fraction] 35.0 % 35.0 - 47.0 % [employer] Work Phone: 22 Lymphocytes (Bld) [#/Vol] 0.6 10*3/uL Low 1.0 - 4.3 10*3/uL [employer] Work Phone: 22 Lymphocytes/100 WBC (Bld) 4.6 % Low 20.0 - 40.0 % [employer] Work Phone: MCH (RBC) [Entitic mass] 32.3 pg 26. 0 - 34.0 pg [employer] Work Phone: 22 MCHC (RBC) [Mass/Vol] 33.9 % 32.0 - 36.0 % [employer] Work Phone: 22 MCV (RBC) [Entitic vol] 95.3 fL 79.0 - 98.0 fL [employer] Work Phone: 22 Monocytes (Bld) [#/Vol] 0.9 10*3/uL High 0.0 - 0.8 10*3/uL [employer] Work Phone: 22 Monocytes/100 WBC (Bld) 6.4 % 2.0 - 10.0 % [employer] Work Phone: 1 22 Platelet distribution width (Bld) [Ratio] 15.0 % High 11.5 - 14.5 % [employer] Work Phone: 22 Platelet mean volume (Bld) [Entitic vol] 9.3 fL 7.4 - 10.4 fL [employer] Work Phone: 22 Platelets (Bld) [#/Vol] 255 10*3/uL 140 - 440 10*3/uL [facility] Work Phone: 1 RBC (Bld) [#/Vol] 3.67 10*6/uL Low 3.80 - 5.2 0 10*6/uL [facility] Work Phone: 1 WBC (Bld) [#/Vol] 14.0 10*3/uL High 3.6 - 10.7 10*3/uL [facility] Work Phone: 1 No Panel InformationOrdered By: Nehal Madden on 01-15-2021 Procalcitonin 1.67 ng/mL High 0.00 - 0.09 ng/mL [facility] Work Phone: 1 Interpretation and review of laboratory results Abnormal [facility] Work Phone: Test Performed by [id number] [place], [place] [address]A Work Phone: [facility] Work Phone: Test Performed by [employer] Work Phone: 1 [facility] Work Phone: Absolute Baso # 0.0 10*3/uL 0.0 - 0.2 10*3/uL [facility] Work Phone: Absolute Neut # 11.8 10*3/uL High 1.8 - 7.0 10*3/uL [facility] Work Phone: POCT VenousOrdered By: Sera Madden on 01-15-2021 Base Excess, Maikel 3.4 mmol/L High -3.0 - 3.0 mmol/L [facility] Work Phone: [phone] [facility] Work Phone: Comment on above: Performed by [employer] ID : [id number] [facility]The[facility]comYork[place], [place] Interpretation and review of laboratory results Abnormal [facility] Work Phone: 1 pCO2, Maikel 52.9 mm[Hg] 40.0 - 55.0 mm[Hg] [facility] Work Phone: pH, Maikel 7.361 [facility] Work Phone: 1 pO2, Maikel 62.4 mm[Hg] High 30.0 - 50.0 mm[Hg] [facility] Work Phone: TC02 (Calc), Maikel 31.5 mmol/L High 24.0 - 28.0 mmol/L [facility] Work Phone: 1 Test Performed by [employer], [address], [place] [address] [facility] Work Phone: 1 [facility] Work Phone: 1 ProcalcitoninOrdered By: Linda Madden on 01-15-2021 Interpretation See Below [facility] Work Phone: Comment on above: PCT <0.50 = Low risk of severe sepsis and/or septic shock. PCT >2.00 = High risk of severe sepsis and/or septic shock. Interpretation and review of laboratory results Abnormal [facility] Work Phone: 1 Test Performed by [employer], [address] [place] [address] [facility] Work Phone: 1 [facility] Work Phone: 1 Respiratory Panel, Molecular , with COVID-19 (Restricted: peds pts or suitable admitted adults)Ordered By: Nehal Madden on 01-15-2021 Respiratory Panel Molecular, with COVID NEGATIVE: No targets were detected by the [email or web address] Upper Respiratory Pathogens PCR Panel. _ Expected Result: Not Detected The [email or web address] Upper Respiratory Pathogens PCR Panel can detect [...] management decisions. This assay was developed by [employer] and distributed under an Emergency Use Authorization (EUA) granted by the FDA for the qualitative detection of SARS-CoV-2 nucleic acid. Provider and patient fact sheets can be found at https://www.[facility].gov/m edia/969120/download and https://www.fda.gov/m edia/035435/download. [employer] Work Phone: Test Performed by [employer] [address] [address] [employer] Work Phone: [employer] Work Phone: Vital signsOrdered By: Sera Madden on 01-15-2021 Oxygen saturation in Blood 90.1 % High 60.0 - 80.0 % [employer] Work Phone: XR CHEST PORTABLEOrdered By: Nehal Maddne on 01-15-2021 Patient Name: CHARLIE NGUYEN Diagnostic Radiology ACCESSION EXAM DATE/TIME PROCEDURE ORDERING PROVIDER [id number] 01/15/2021 12:53 EDT CR Chest Portable [id number] NEHAL SANCHEZ CPT code 21951 Reason For Exam (CR Chest Portable) sepsis [...] R Transcribed Date and Time: 01/15/2021 1:01 [employer] Work Phone: [facility] Incoming Radiology Results From [facility] - 01/15/2021 1:01 PM EDT Patient Name: CHARLIE NGUYEN Diagnostic Radiology ACCESSION EXAM DATE/TIME PROCEDURE ORDERING PROVIDER [id number] 01/15/2021 12:53 EDT CR Chest Portable [id number] -CHANO NEHAL CPT code 39189 Reason For Exam (CR Chest Portable) sepsis [...] Date and Time: 01/15/2021 1:01 [facility] Work Phone: [facility] Work Phone: CULT/STAIN - AEROBIC AND GAYLA EROBICon 01-11-2021 CULT/STAIN - AEROBIC AND ANAEROBIC CULT./ST. BACTERIA --> Status: F No growth at 3 days. CULTURE ANAEROBE --> Status: F No growth of anaerobes at 5 days. Normal [facility] Comment on above: Performed By: #### C Anitra CORONA/PADILLA ####[facility] [employer] [place] [address] CULTURE BLOODon 01-11-2021 Microscopic examination of blood, culture CULTURE BLOOD --> Status: F No growth at 5 days. Normal [facility] Comment on above: Performed By: #### C /DANIEL ####[facility] [employer] [address] [place] [address] CULTURE BLOOD (Two)on 2020 Microscopic examination of blood, culture CULTURE BLOOD (Two) --> Status: F No growth at 5 days. Normal [employer] Comment on above: Performed By: #### C /BLT ####[facility] [employer] [address] [place] [address] C-Reactive Proteinon 021 C-Reactive Protein 5.1 mg/dL High 0.0-0.9 [facility] CASE MANAGEMon 01-08-2021 CASE MANAGEM HNO ID: [id number] Author: Trish Gambino RN Service: Case Management Author Type: Registered Nurse Type: Care Mgt Progress Note Filed: 01/08/2021 12:32 PM Note Text: CARE MANAGEMENT DISCHARGE NOTE SERVICE DATE: 01/08/2021 SERVICE TIME: 1230 LOS: 2 days Admission Date: 01/06/2021 DISCHARGE ARRANGEMENT (list agency and phone number) Discharge Arrangement: Return to correction CAREGIVER ASSESSMENT: Caregiver is ready, willing and able to meet the patient's needs as recommended by the inter-professional team:: No Does the patient have an acute stroke diagnosis, or has the patient had a stroke during this admission?: No Patient's transition needs and plan for meeting these needs: pt to dc to [facility] HANDOFF COMMUNICATION: Handoff to: Primary Care Physician Primary Care Physician Name/Phone: Dr. 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 Location: [place] Destination: [facility] Financial Care Management Responsibility: None ADDITIONAL CONTACT RESOURCES: none Discharge Information Row Name Admission (Current) from 01/06/2021 in [facility] Agency [facility] Caregiver is ready, willing and able to meet the patient's needs as recommended by the inter-professional team:: No Does the patient have an acute stroke diagnosis, or has the patient had a stroke during this admission?: No Needs Prior to Discharge: Ready for Discharge Transportation Arrangements: Ambulance/[facility] Transportation Agency and Phone #:: [facility] [phone] Date of Trip: 01/08/21 Time of Trip: 1630 Type of Service: BLS Non-emergency Is Patient Medicaid Pending?: No Discussion of financial coverage occurred with: Patient Mold Inspector Location: [place] Destination: [facility] Financial Care Management Responsibility: None Patient is medically cleared for discharge today to return to [facility]. BLS transport arranged through [facility] for 1630. Bedside nurse aware, DC packet left at nurse's station. Patient aware of dc plans and is agreeable. SIGNATURE: Trish Gambino RN PATIENT NAME: Charlie Nguyen DATE: January 08, 2021 TIME: 12:31 PM PAGER/CONTACT #: [phone] Normal [facility] CBCon 01-08-2021 Absolute nRBC <0.01 Normal <0.01 [facility] Erythrocyte distribution width (RBC) [Ratio] 15.0 % Normal 11.5-15.0 [facility] Hematocrit (Bld) [Volume fraction] 33.9 % Low 36.0-46.0 [facility] Hemoglobin (Bld) [Mass/Vol] 10.6 g/dL Low 11.5-15.5 [facility] MCH 30.7 pG Normal 26.0-34.0 [facility] MCHC (RBC) [Mass/Vol] 31.3 g/dL Normal 30.5-36.0 [facility] MCV (RBC) [Entitic vol] 98.3 fL Normal 80.0-100.0 [facility] Platelet mean volume (Bld) [Entitic vol] 10.9 fL Normal 9.0-12.7 [facility] Platelets (Bld) [#/Vol] 147 10*3/uL Low 150-400 [facility] RBC (Bld) [#/Vol] 3.45 10*6/uL Low 3.90-5.20 [facility] WBC (Bld) [#/Vol] 5.81 10*3/uL Normal 3.70-11.00 [facility] CNDSon 01-08-2021 CNDS HNO ID: [id number] Author: Jasen Ewing DO Service: Orthopaedic Surgery [...] stay. She was stable for discharge to Retirement Facility. Complete and comprehensive discharge instructions were [...] Patient Condition @ Discharge: Stable Discharge Disposition: Retirement Facility PHYSICAL EXAM (CHOOSE FIRST BLANK IF [...] every Thursday faxed to Sanjana Tarango at [phone] vancomycin (VANCOCIN) 1.25 g Inject 1.25 g intravenously q 24 HR. Qty: 9000 mL Refills: 0 Comments: Needs CBC w/ diff, CMP, vancomycin trough, ESR, CRP every Thursday faxed to Sanjana Tarango at [phone] pregabalin (LYRICA) 100 mg Take 100 mg [...] mouth twice daily. (more content not included)... [facility] CONSULTon 01-08-2021 CONSULT HNO ID: [id number] Author: Milton Fernandez MD Service: General Internal Medicine Author Type: Physician Type: Consults Filed: 01/08/2021 10:16 PM Note Text: CONSULT PROGRESS NOTE - INTERNAL MEDICINE PATIENT NAME: Charlie Nguyen SERVICE DATE: 01/08/2021 SERVICE TIME: 06 ADMITTING PHYSICIAN: Kurtis Danielson MD ASSESSMENT AND PLAN Septic arthritis of knee, right Rt knee PJI s/p washout 12/19/20 OA Chronic pain syndrome Morbid obesity Hx of DVT MS Plan D/w RN Anticipate dc today Cathflo Bowel regimen Incentive spirometer encouraged Abx per ID- Cont. Vanco and Cefepime thru 01/30/21 as scheduled. SW for dc planning-plan dc to [facility] Awa pending labs Thank you for allowing us [...] Discussed with Dr Fernandez SIGNATURE: Jan Fernandez APRN.SECRETARY TO THE VICE PRESIDENT DATE: January 08, 2021 TIME: 6:11 AM I have reviewed the above note obtained and documented by the PARAEDUCATOR/PA. I have discussed the case and management of the patient's care. The following comments revise or confirm relevant bey components of the note. Milton Fernandez MD 10:16 PM [facility] NURSING PROGon 01-08-2021 NURSING PROG HNO ID: [id number] Author: Turner Patten RN Service: Nursing Author Type: Registered Nurse Type: Nursing Progress Note Filed: 01/08/2021 3:01 PM Note Text: Nursing Progress Note Patient Name: Charlie Nguyen Patient Location: [facility] Daily Note:Assessment as charted. Patient denies any chest pain or shortness of breath. Goal for the day is to increase mobility and control pain. Bed in low position, bed alarm on, call light in reach. Will continue to monitor. 1459- Report called to [facility]. This note was completed by: Turner Patten [facility] NURSING PROG HNO ID: [id number] Author: Mora Thayer, RN Service: Nursing Author Type: Registered Nurse Type: Nursing Progress Note Filed: 01/08/2021 6:58 AM Note Text: Nursing Progress Note Patient Name: Charlie Nguyen Patient Location: [place] [address] [id number] Daily Note:0428 Single lumen PICC with total occlusion. Cath eric injection started. 0450 Cath eric completed. Line clamped and labeled, Do Not Flush, cathflo in place. Will return in 2 hours to attempt to aspirate 0650 Attempted to aspirate from PICC without success. C. Legg SECRETARY TO THE VICE PRESIDENT here, states will order second dose of cathflo This note was completed by: Mora Thayer [facility] Renal Function Panelon 01-08 Albumin [Mass/Vol] 3.1 g/dL Low 3.9-4.9 [facility] Anion gap [Moles/Vol] 8 mmol/L Low 9-18 [facility] Calcium [Mass/Vol] 8.1 mg/dL Low 8.5-10.2 [facility] Chloride [Moles/Vol] 104 mmol/L Normal 97-105 [facility] CO2 [Moles/Vol] 25 mmol/L Normal 22-33 [facility] Creatinine [Mass/Vol] 0.68 mg/dL Normal 0.58-0.96 [facility] eGFR- Amer. >60 Normal [facility] eGFR-All Other Races >60 Normal [facility] Comment on above: Result Comment: eGFR (Estimated [...] GFR. Glucose [Mass/Vol] 109 mg/dL High 74-99 [facility] Phosphate [Mass/Vol] 2.6 mg/dL Low 2.7-4.8 [facility] Potassium [Moles/Vol] 3.8 mmol/L Normal 3.7-5.1 [facility] Sodium [Moles/Vol] 137 mmol/L Normal 136-144 [facility] Urea nitrogen [Mass/Vol] 14 mg/dL Normal 7-21 [facility] THERAPY NTon 01-08-2021 THERAPY NT HNO ID: [id number] Author: Kris Lamb OT/L Service: Occupational Therapy Author Type: Occupational Therapist Type: Therapy (PT/OT/Speech/Resp) Filed: 01/08/2021 1:13 PM Note Text: Occupational Therapy Evaluation SERVICE DATE: 01/08/2021 SERVICE TIME: 1045 to 1110 ROOM: [place] [address] Recommended Discharge Disposition: ECF Recommended Discharge Disposition Comments[facility] Anticipated Discharge Needs: Physical [...] Home Environment Patient Lives With: Facility [facility] ([facility]) Assistance Available: 24 Hour Entry To Home: [...] daily living (ADL);Reduced mobility-other Interventions Provided: Evaluation;Self Jail Management (86785) $ Evaluation-Low (29007) Billed Units: 1 unit Self Jail Management (60456) Treatment Minutes: 10 $ Self Jail Management (47485) Billed Units: 1 unit Training AND education provided in: Benefits of in-hospital mobility, Bed mobility, Discharge planning, Fu (more content not included)... [facility] THERAPY NT HNO ID: [id number] Author: Janis Palafox, PT Service: Physical Therapy Author Type: Physical Therapist Type: Therapy (PT/OT/Speech/Resp) Filed: 01/08/2021 1:10 PM Note Text: Physical Therapy Evaluation SERVICE DATE: 01/08/2021 SERVICE TIME: 1121 to 1205 ROOM: [place] [address] Recommended Discharge Disposition: Subacute/SNF Recommended Discharge Disposition Comments: pt opperating at new baseline with senior care hopes of working towards improved mobility out [...] Management;Meals Prior [facility] Level [facility] [...] Skilled Need Interventions Provided: Evaluation;Therapeuti c Activity (54978) $ Evaluation-Low (71861) Billed Units: 1 unit Therapeutic Activity (16011) Treatment Minutes: 25 $ Therapeutic Activity (13127) Billed Units: 2 units Training AND education [...] January 08, 2021 TIME: 1:10 PM Normal [facility] Vancomycinon 01-08-2021 Vancomycin 15.9 ug/mL Normal 10.0-20.0 [facility] Comment on above: Result Comment: Refe rence ranges and high/low indicator flags are provided as general guidelines only. The treating physician must determine appropriate target levels/dosing based on the specific clinical situation. CONSULT PROGon 01-07-2021 CONSULT PROG HNO ID: [id number] Author: Kelvin Espino MD Service: Infectious Disease Author Type: Physician Type: Consult Progress Note Filed: 01/07/2021 11:11 AM Note Text: Interval History Seeing patient for recent right knee PJI s/p washout 12/19/20 with negative cultures. Discharged to rehab on Vanco/Cefepime thru 01/30/21. Now admitted with fever and increased right knee pain at [facility]. Has been afebrile since admission. Synovial [...] right knee. Kelvin Espino MD [facility] [phone] Normal [facility] Coronavirus 2019on 1 SARS-CoV-2 (COVID-19) RNA TANVIR+probe Ql (Unsp spec) UPPER RESPIRATORY TRACT SWAB Normal [facility] Comment on above: Performed By: #### C OVID ####[facility] [place], [place] [phone] SARS-CoV-2 (COVID-19) RNA TANVIR+probe Ql (Unsp spec) Negative for COVID19 (SARS CoV2) by RT-PCR or equivalent method. Normal Negative for COVID19 (SARS CoV2) by RT-PCR or equivalent method. [facility] Comment on above: Result Comment: This test was developed and its performance characteristics determined by [facility] [place]. This test has been authorized by FDA under an Emergency Use Authorization (EUA). This test has been validated in accordance with the FDA's Guidance Document Policy for Diagnostics Testing in Laboratories Certified to Perform High Complexity Testing under CLIA prior to Emergency use Authorization for Coronavirus Disease 2019 during the Public Health Emergency issued on July 30, 2019. Test performed by [facility], [facility] [place], [address], [place] [address]. Performed By: #### C OVID ####[facility], [place] [phone] NURSING PROGon 01-07-2021 NURSING PROG HNO ID: [id number] Author: Bigg [address] RN Service: Nursing Author Type: Registered Nurse Type: Nursing Progress Note Filed: 01/08/2021 8:43 AM Note Text: Nursing Progress Note Patient Name: Charlie Nguyen Patient Location: [place] [address] [id number] Daily Note: 1900 Assumed care of patient. [...] This note was completed by: [address] [facility] NURSING PROG HNO ID: [id number] Author: Mariela Campa RN Service: ? Author Type: Registered Nurse Type: Nursing Progress Note Filed: 01/07/2021 9:42 AM Note Text: 01/07/2021 0600 Pt has really been sleeping all night. She can barely open her eyes but then she'll C/O the IV pump alarming. [facility] NURSING PROG HNO ID: [id number] Author: Turner Patten RN Service: Nursing Author Type: Registered Nurse Type: Nursing Progress Note Filed: 01/07/2021 11:59 AM Note Text: Nursing Progress Note Patient Name: Charlie Nguyen Patient [facility]: [facility] Daily Note:Assessment as charted. Patient denies any chest pain or shortness of breath. Patient is lethargic. Goal for the day is to increase mobility and control pain. Bed in low position, bed alarm on, call light in reach. Will continue to monitor. This note was completed by: Turner Patten [facility] NURSING PROG HNO ID: [id number] Author: Mariela Campa RN Service: ? Author Type: Registered Nurse Type: Nursing Progress Note Filed: 01/07/2021 3:31 AM Note Text: 01/06/20211999 Assumed care of pt. She is oddly aggravated when you go into her room , julieta if it is frequently. 01/07/2021 0000 Assessment as charted. Sleeping soundly. [facility] HNO ID: [id number] Author: RT Esther(R) Service: Radiology Author Type: Price Checker Type: Allied Health Filed: 01/06/2021 7:28 PM [...] RT Esther(R) January 06, 2021 7:28 PM [facility] HNO ID: [id number] Author: RT Lakisha(R) Service: Radiology Author Type: Price Checker Type: Allied Health Filed: 01/06/2021 10:26 AM [...] PERIPHERAL IV DATA: Not applicable SIGNED BY: Toshia Mackenzie, RT(R) January 06, 2021 10:26 AM [facility] Blood Cultureon 01-06-2021 Bacteria identified Cx Nom (Bld) Sp. Request/Comment: - The blood culture bottles are underfilled. Adding volume lower or higher than the 8 to 10 mL per bottle, which is the manufacturers recommended volume, may adversely affect the recovery and/or detection of organisms. 3.0 CC Culture Result - No growth 5 days [facility] Comment on above: Performed By: #### B LCUL ####[address] [phone] Bacteria identified Cx Nom (Bld) Sp. Request/Comment: - The blood culture bottles are underfilled. Adding volume lower or higher than the 8 to 10 mL per bottle, which is the manufacturers recommended volume, may adversely affect the recovery and/or detection of organisms. 0.1 CC Culture Result - No growth 5 days [facility] Comment on above: Performed By: #### B LCUL ####[address] [phone] Body Fluid Cell Count with D ifferentialOrdered By: Nica Nolasco on 01-06-2021 Fluid Type SYNOVIAL [facility] Work Phone: [phone] Nucl Cell, Fluid 945 {cells}/uL [facility] Work Phone: [phone] Test Performed by [employer], [address] [place] [address] [facility] Work Phone: [phone] [facility] Work Phone: [phone] Body Fluid CrystalOrdered By : Nica Nolasco on 01-06-2021 Crystals LM Nom (Urine sed) Negative [employer] Work Phone: [phone] Fluid Type Synovial [employer] Work Phone: [phone] Test Performed by [facility], [address] [place] [address] [employer] Work Phone: [phone] [employer] Work Phone: C-Reactive Proteinon 021 C-Reactive Protein 7.9 mg/dL High 0.0-0.9 [facility] CBC and Differentialon 01-06 Abs Baso 0.00 k/uL Normal <0.11 [facility] Abs Prowers 0.00 k/uL Normal <0.87 [facility] Abs Neut 3.46 k/uL Normal 1.45-7.50 [facility] ANC(includeSEG+BAND) 3.46 k/uL Normal [facility] Basophilic stippling LM Ql (Bld) Occasional Normal [facility] Basophils/100 WBC (Bld) 0.0 % Normal [facility] DTYPE Manual Diff Normal [facility] Eosinophils (Bld) [#/Vol] 0.85 10*3/uL High <0.46 [facility] Eosinophils/100 WBC (Bld) 15.0 % Normal [facility] Erythrocyte distribution width (RBC) [Ratio] 15.2 % High 11.5-15.0 [facility] Hematocrit (Bld) [Volume fraction] 40.5 % Normal 36.0-46.0 [facility] Hemoglobin (Bld) [Mass/Vol] 12.7 g/dL Normal 11.5-15.5 [facility] Left Shift Present Normal [facility] Lymphocytes (Bld) [#/Vol] 1.25 10*3/uL Normal 1.00-4.00 [facility] Lymphocytes/100 WBC (Bld) 22.0 % Normal [facility] Lymphocytes/100 WBC (Bld) 1.0 % Normal [facility] MCH 31.3 pG Normal 26.0-34.0 [facility] MCHC (RBC) [Mass/Vol] 31.4 g/dL Normal 30.5-36.0 [facility] MCV (RBC) [Entitic vol] 99.8 fL Normal 80.0-100.0 [facility] Monocytes/100 WBC (Bld) 0.0 % Normal [facility] Myelo% 1.0 % Normal [facility] Neutrophils/100 WBC (Bld) 61.0 % Normal [facility] Platelet Estimate Platelet estimate adequate Normal [facility] Platelet mean volume (Bld) [Entitic vol] 10.0 fL Normal 9.0-12.7 [facility] Platelets (Bld) [#/Vol] 193 10*3/uL Normal 150-400 [facility] Polychromasia Slight Normal [facility] RBC (Bld) [#/Vol] 4.06 10*6/uL Normal 3.90-5.20 [facility] Red Cell Morph SEE COMMENT Normal [facility] Comment on above: Result Comment: Unre markable WBC (Bld) [#/Vol] 5.67 10*3/uL Normal 3.70-11.00 [facility] CONSULTon 01-06-2021 CONSULT HNO ID: [id number] Author: Kelvin Espino MD Service: Infectious Disease Author Type: Physician Type: Consults Filed: 01/06/2021 4:21 PM Note Text: BRIEF ID CONSULT NOTE Pt seen and examined. Full note dictated. Impression 1. 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 Discharged on Cefepime/vanco thru 01/30/21 (6 weeks). -- now admitted with fever at [facility] and worsening right knee pain. -- Sent to OSH where arthrocentesis was performed with 945 WBC. No cultures of synovial fluid, blood, or urine sent. Recommendation 1. Cont. Vanco and Cefepime for now. 2. Will send blood and urine cultures for completeness. 3. Await Ortho plan concerning knee. 4. Will follow. Kelvin Espino MD [facility] [phone] Normal [facility] CONSULT HNO ID: [id number] Author: Kelvin Espino MD Service: Infectious Disease Author Type: Physician Type: Consults Filed: 01/07/2021 8:17 AM Note Text: [facility] Consultation CHARLIE NGUYEN CSN#: [id number] PATIENT TYPE: LOCATION: 4-1 4B ATTENDING PHYSICIAN: KURTIS DANIELSON ORIGINATOR: Kelvin Espino [...] and was sent to [facility] on 01/05. She had an arthrocentesis performed at that time, which revealed 985 white cells. It does not appear that fluid was sent for Gram stain or culture. The patient was transferred to [facility]. She has been continued on her [...] No cultures were performed upon arrival to [facility]. Chest x-ray showed no infiltrates. IMPRESSION [...] g IV (more content not included)... Normal [facility] CONSULT HNO ID: [id number] Author: Milton Fernandez MD Service: General Internal Medicine Author Type: Physician Type: Consults Filed: 01/06/2021 6:32 PM Note Text: CONSULT INITIAL - INTERNAL MEDICINE PATIENT NAME: Charlie Nguyen SERVICE DATE: 01/06/2021 SERVICE TIME: 1549 REASON FOR CONSULT: Medical management REQUESTING PHYSICIAN: [...] Date COLONOSCOPY 06/2014 ischemic colitis HYSTERECTOMY HX 1987 JOINT REPLACEMENT HX PAST SURGICAL HISTORY OF [...] 1 D (more content not included)... Normal [facility] CONSULT HNO ID: [id number] Author: Yoni Forrest DO Service: Orthopaedic Surgery [...] receiving vancomycin and cefepime. Knee aspiration at [facility] 985 total nucleated cells. NPO. Hold all AC for possible surgical intervention. Will discuss with [facility] orthopedic staff public opinion survey taker and update plan. SUBJECTIVE Ms. Nguyen is [...] peacefully upon entering room. She reported to [facility] ED where aspiration resulted in 985 total nucleated cells and she was then transferred to [facility]. Last dose of eliquis 8 PM. Patient [...] 0.9% injecti (more content not included)... Normal [facility] COVID and Resp PCR Panelon 0 01-06-2021 SARS-CoV-2 (COVID-19) RNA TANVIR+probe Ql (Unsp spec) COVID and Resp PCR Panel --> Status: F NEGATIVE: No targets were detected by the [email or web address] Upper Respiratory Pathogens PCR Panel. _ Expected Result: Not Detected The [employer] Upper Respiratory Pathogens PCR Panel can detect [...] management decisions. This assay was developed by [employer] and distributed under an Emergency Use Authorization (EUA) granted by the FDA for the qualitative detection of SARS-CoV-2 nucleic acid. Provider and patient fact sheets can be found at https://www.fda.gov/m edia/125751/download and https://www.fda.gov/m [employer]/964425/download. Respiratory Pathogens PCR Panel. _ Expected Result: Not Detected The [employer] Upper Respiratory Pathogens PCR Panel can detect [...] management decisions. This assay was developed by [employer] and distributed under an Emergency Use Authorization (EUA) granted by the FDA for the qualitative detection of SARS-CoV-2 nucleic acid. Provider and patient fact sheets can be found at https://www.fda.gov/m [employer]/725764/download and https://www.fda.gov/m [employer]/038179/download. Normal [facility] Comment on above: Performed By: #### B FRP2 ####[facility] [address] [place], [place] Cell Count,Body Fluidon Nucleated Cells 945 {cells}/uL Normal [facility] Comment on above: Performed By: #### D IFBF, FLDCC, CRSTL #### [facility] [address] [place], [place] Fluid Type SYNOVIAL Normal [facility] Comment on above: Performed By: #### D IFBF, FLDCC, CRSTL #### [facility] [address], [place] Comp Metabolic Panelon 01-06 Albumin [Mass/Vol] 3.7 g/dL Low 3.9-4.9 [facility] ALP [Catalytic activity/Vol] 119 U/L Normal 34-123 [facility] ALT [Catalytic activity/Vol] 11 U/L Normal 7-38 [facility] Anion gap [Moles/Vol] 12 mmol/L Normal 9-18 [facility] AST [Catalytic activity/Vol] 27 U/L Normal 13-35 [facility] Bilirubin [Mass/Vol] 0.3 mg/dL Normal 0.2-1.3 [facility] Calcium [Mass/Vol] 8.2 mg/dL Low 8.5-10.2 [facility] Chloride [Moles/Vol] 105 mmol/L Normal 97-105 [facility] CO2 [Moles/Vol] 22 mmol/L Normal 22-33 [facility] Creatinine [Mass/Vol] 0.65 mg/dL Normal 0.58-0.96 [facility] eGFR- Amer. >60 Normal [facility] eGFR-All Other Races >60 Normal [facility] Comment on above: Result Comment: eGFR (Estimated [...] GFR. Glucose [Mass/Vol] 80 mg/dL Normal 74-99 [facility] Potassium [Moles/Vol] 4.4 mmol/L Normal 3.7-5.1 [facility] Protein [Mass/Vol] 7.4 g/dL Normal 6.3-8.0 [facility] Sodium [Moles/Vol] 139 mmol/L Normal 136-144 [facility] Urea nitrogen [Mass/Vol] 8 mg/dL Normal 7-21 [facility] Complete Urinalysison 2020 Appearance (U) Clear Normal Clear [facility] Comment on above: Result Comment: . Performed By: #### C UA2 ####[id number] [place], [place] Bilirubin,Urine Negative Normal Negative [facility] Comment on above: Result Comment: . Performed By: #### C UA2 ####[address] [place], [place] Color (U) Colorless Normal Lt. Yellow [facility] Comment on above: Result Comment: . Performed By: #### C UA2 ####[facility] [employer] [id number] [place], [place] Glucose Ql (U) Normal Normal Normal (<70) [facility] Comment on above: Result Comment: . Performed By: #### C UA2 ####[facility] [employer] [id number] . [place], [place] Ketone,Urine Negative Normal Negative [facility] Comment on above: Result Comment: . Performed By: #### C UA2 ####[employer] [id number] . [place], [place] Leukocytes,Urine Negative Normal Negative [facility] Comment on above: Result Comment: . Performed By: #### C UA2 ####[facility] [employer] [id number] [place], [place] Nitrites,Urine Negative Normal Negative [facility] Comment on above: Result Comment: . Performed By: #### C UA2 ####[id number] [place], [place] Occult Blood,Urine Negative Normal Negative [facility] Comment on above: Result Comment: . Performed By: #### C UA2 ####[id number] [place], [place] pH,Urine 5.5 Normal 5.0-8.0 [facility] Comment on above: Result Comment: . Performed By: #### C UA2 ####[id number] [place], [place] Specific [place],Urine 1.007 Normal 1.005 - 1.030 [facility] Comment on above: Result Comment: . Performed By: #### C UA2 ####[address] [place], [place] Total Protein,Urine Negative Normal Negative [facility] Comment on above: Result Comment: . Performed By: #### C UA2 ####[address] [place], [place] Urobilinogen,Urine Normal Normal Normal (0-1) [facility] Comment on above: Result Comment: . Performed By: #### C UA2 ####[address] [place], [place] Crystals,Body Fluidon 2020 Crystals LM Nom (Urine sed) Negative Normal [facility] Comment on above: Performed By: #### D JASON BARROS, CRSTL #### [address] [place], [place] Fluid Type Synovial Normal [facility] Comment on above: Performed By: #### D JASON BARROS, CRSTL #### [address] [address] [place], [place] Differential, Body FluidOrde red By: Nica Nolasco on 01-06-2021 Differential Count 100 [facility] Work Phone: Eosinophils/100 WBC (Bld) 4 % [facility] Work Phone: Lymphocytes/100 WBC (Bld) 4 % [facility] Work Phone: Macrophage count 1 % [facility] Work Phone: Monocytes/100 WBC (Bld) 9 % [facility] Work Phone: Neutrophils/100 WBC (Bld) 82 % [facility] Work Phone: Test Performed by [facility] [employer], [facility] [place] [address] [facility] Work Phone: [phone] [facility] Work Phone: Differential,Body Fluidson 0 01-06-2021 Eosinophils/100 WBC (Bld) 4 % Normal [facility] Comment on above: Performed By: #### D IFBF, FLDCC, CRSTL ####[facility] [address] [place] [address] Lymphocytes/100 WBC (Bld) 4 % Normal [facility] Comment on above: Performed By: #### D IFBF, FLDCC, CRSTL ####[facility] [address] [place] [address] Macrophages 1 % Normal [facility] Comment on above: Performed By: #### D IFBF, FLDCC, CRSTL ####[employer] [address] [place] [address] Monocytes/100 WBC (Bld) 9 % Normal [facility] Comment on above: Performed By: #### D IFBF, FLDCC, CRSTL ####[facility] [employer] [address] [place] [address] Neutrophils/100 WBC (Bld) 82 % Normal [facility] Comment on above: Performed By: #### D IFBF, FLDCC, CRSTL ####[facility] [employer] [address] [place] [address] Cells Counted for Diff 100 Normal [facility] Comment on above: Performed By: #### D IFBF, FLDCC, CRSTL ####[facility] [address] [place] [address] HISTORY PHYSICALon HISTORY PHYSICAL HNO ID: [id number] Author: Yoni Forrest DO Service: Orthopaedic Surgery [...] receiving vancomycin and cefepime. Knee aspiration at [facility] 985 total nucleated cells. NPO. Hold all AC for possible surgical intervention. Will discuss with [facility] orthopedic staff public opinion survey taker and update plan. SUBJECTIVE Ms. Nguyen is [...] peacefully upon entering room. She reported to [facility] ED where aspiration resulted in 985 total nucleated cells and she was then transferred to [facility]. Last dose of eliquis 8/ PM. Patient currently using a wheelchair. Past [...] (SEROQUEL) 50 mg (more content not included)... [facility] NURSING PROGon 01-06-2021 NURSING PROG HNO ID: [id number] Author: Bambi Palmer RN Service: ? Author Type: Registered Nurse Type: Nursing Progress Note Filed: 01/06/2021 2:31 PM Note Text: Nursing Progress Note Patient Name: Charlie Nguyen Patient [facility]-464-1 Daily Note: 0755 Patient awake in bed, [...] This note was completed by: Bambi Palmer [facility] NURSING PROG HNO ID: [id number] Author: Jan Whitehead, RN Service: Nursing Author Type: Registered Nurse Type: Nursing Progress Note Filed: 01/06/2021 6:41 AM Note Text: Nursing Progress Note Patient Name: Charlie Nguyen Patient Location: [place] [id number]/[facility]-1 Daily Note: 0400 Patient arrived to [...] This note was completed by: Jan Whitehead [facility] STAIN GRAMon 01-06-2021 STAIN GRAM STAIN GRAM --> Status: F Few polymorphonuclear cells/lpf. No organisms seen. No organisms seen. Normal [facility] Comment on above: Performed By: #### C Anitra CORONA/PADILLA ####[employer] [address] [place] [address] UrinalysisOrdered By: Rabia Palomares on 01-06-2021 Appearance (U) Clear Clear NA [employer] Work Phone: [phone] Comment on above: . Bilirubin Urine Negative Negative mg/dL [facility] Work Phone: [phone] Comment on above: . Color (U) Colorless Lt. Yellow NA [facility] Work Phone: [phone] Comment on above: . Glucose, Ur Normal Normal (<70) mg/dL [facility] Work Phone: [phone] Comment on above: . Ketones Ql (U) Negative Negative mg/dL [facility] Work Phone: [phone] Comment on above: . LEUKOCYTES, UA Negative Negative Simon/uL [facility] Work Phone: [phone] Comment on above: . Nitrite, Urine Negative Negative NA [facility] Work Phone: [phone] Comment on above: . Occult Blood,Urine Negative Negative mg/dL [facility] Work Phone: [phone] Comment on above: . pH (U) 5.5 [pH] [facility] Work Phone: [phone] Comment on above: . Specific [place], Urine 1.007 [address] [facility] Work Phone: [phone] Comment on above: . Total Protein, Urine Negative Negativ e mg/dL [facility] Work Phone: [phone] Comment on above: . Urobilinogen, Urine Normal Normal ( 0-1) mg/dL [facility] Work Phone: [phone] Comment on above: . Test Performed by [employer] [facility], [address] [place] [address] [facility] Work Phone: [phone] [facility] Work Phone: [phone] CHEST 1V FRONTAL PORTon 0 01-06-2021 [...] Jan 06 2021 10:51AM EST [id number] N [facility] XR KNEE 2V AP/LAT RTon 01-06 XR [...] Jan 06 2021 7:48PM EST [id number] N [facility] C-REACTIVE PROTEINOrdered By : Kian Palomares on 01-05-2021 CRP [Mass/Vol] 64.3 mg/L High 0.0 - 6.0 mg/L [facility] Work Phone: Comment on above: . C-Reactive Proteinon 021 CRP [Mass/Vol] 64.3 mg/L High 0.0-6.0 [facility] Comment on above: Result Comment: . Performed By: #### C RP2, PCAL, CMP3M, LIPA4, HEMDF, ESR #### [facility] [employer] [address] [place] [address] CBC auto differentialOrdered By: Kian Palomares on 01-05-2021 Absolute Baso # 0.0 10*3/uL 0.0 - 0.2 10*3/uL [employer] Work Phone: Absolute Neut # 4.3 10*3/uL 1.8 - 7.0 10*3/uL [employer] Work Phone: Hemoglobin.gastrointesti nal spec 1 Ql (Stl) 11.3 g/dL Low 11.7 - 16.0 g/dL [employer] Work Phone: [phone] MCHC (RBC) [Mass/Vol] 32.9 % 32.0 - 36.0 % [facility] Work Phone: Platelet distribution width (Bld) [Ratio] 15.0 % High 11.5 - 14.5 % [employer] Work Phone: CR Chest Portableon 01-06-20 21 CR Chest Portable Patient Name: CHARLIE NGUYEN Diagnostic Radiology ACCESSION EXAM DATE/TIME PROCEDURE ORDERING PROVIDER [id number] 01/05/2021 20:28 EDT CR Chest Portable [id number] KIAN SILVA CPT code 70934 Reason For Exam (CR Chest Portable) sepsis [...] Transcribed Date and Time: 01/05/2021 8:49 Normal [facility] CR Knee 3 Views Righton CR Knee 3 Views Right Patient Name: CHARLIE FARNSWORTH Diagnostic Radiology ACCESSION EXAM DATE/TIME PROCEDURE ORDERING PROVIDER [id number] 01/05/2021 20:28 EDT CR Knee 3 Views Right [id number] BLACKMON CPT code 84155 Reason For Exam (CR Knee 3 Views [...] Transcribed Date and Time: 01/05/2021 8:45 Normal [facility] CTA Chest W WO (PE study)Ord ered By: Kian Palomares on 01-05-2021 Patient Name: CHARLIE NGUYEN Computed Tomography ACCESSION EXAM DATE/TIME PROCEDURE ORDERING PROVIDER [id number] 01/05/2021 22:12 EDT CTA Chest w/ + w/o [id number] Araseli SILVA CPT code 02633 Q9967 Reason For Exam (CTA Chest w/ [...] Phone: [facility], [facility] Incoming Radiology Results From [facility] - 01/05/2021 10:34 PM EDT Patient Name: [id number] Tomography ACCESSION EXAM DATE/TIME PROCEDURE ORDERING PROVIDER [id number] 01/05/2021 22:12 EDT CTA Chest w/ + w/o [id number] Araseli SILVA CPT code 74207 Q9967 Reason For Exam (CTA Chest w/ [...] Transcribed Date and Time: 01/05/2021 10:19 [facility] Work Phone: [facility] Work Phone: CTA Chest w/ + w/o Contrasto n 01-05-2021 CTA Chest w/ + w/o Contrast Patient Name: [id number] Computed Tomography ACCESSION EXAM DATE/TIME PROCEDURE ORDERING PROVIDER [id number] 01/05/2021 22:12 EDT CTA Chest w/ + w/o [id number] Araseli SILVA CPT code 55352 Q9967 Reason For Exam (CTA Chest w/ [...] Transcribed Date and Time: 01/05/2021 10:19 Normal [facility] Comp Panel with Mg Reflexon 01-05-2021 ALT [Catalytic activity/Vol] 12 U/L Normal 0-34 [facility] Comment on above: Result Comment: The ALT test is performed by an updated assay method. Please note that the reference intervals have been changed and are now sex specific. Performed By: #### C RP2, PCAL, CMP3M, LIPA4, HEMDF, ESR #### [place] [address] [place], [place] Calcium [Mass/Vol] 8.2 mg/dL Low 8.4-10.4 [facility] Comment on above: Performed By: #### C RP2, PCAL, CMP3M, LIPA4, HEMDF, ESR #### [address] [address] [place], [place] Glucose [Mass/Vol] 109 mg/dL High 70-100 [facility] Comment on above: Performed By: #### C RP2, PCAL, CMP3M, LIPA4, HEMDF, ESR #### [place] [address] [place], [place] Urea nitrogen [Mass/Vol] 16 mg/dL Normal 7-20 [facility] Comment on above: Performed By: #### C RP2, PCAL, CMP3M, LIPA4, HEMDF, ESR #### [address] [place], [place] ALP [Catalytic activity/Vol] 108 U/L Normal 38-126 [facility] Comment on above: Performed By: #### C RP2, PCAL, CMP3M, LIPA4, HEMDF, ESR #### [place] [address] [place], [place] Anion gap [Moles/Vol] 5 mmol/L Normal 3-13 [facility] Comment on above: Performed By: #### C RP2, PCAL, CMP3M, LIPA4, HEMDF, ESR #### [address] [address] [place], [place] AST [Catalytic activity/Vol] 52 U/L High 15-46 [facility] Comment on above: Performed By: #### C RP2, PCAL, CMP3M, LIPA4, HEMDF, ESR #### [address] [place], [place] Bilirubin [Mass/Vol] 0.4 mg/dL Normal 0.2-1.3 [facility] Comment on above: Performed By: #### C RP2, PCAL, CMP3M, LIPA4, HEMDF, ESR #### [address] [address] [place], [place] CO2 [Moles/Vol] 23 mmol/L Normal 22-30 [facility] Comment on above: Performed By: #### C RP2, PCAL, CMP3M, LIPA4, HEMDF, ESR #### [address] [address] [place], [place] Creatinine [Mass/Vol] 0.83 mg/dL Normal 0.52-1.25 [facility] Comment on above: Performed By: #### C RP2, PCAL, CMP3M, LIPA4, HEMDF, ESR #### [address] [address] [place], [place] GFR/1.73 sq M.predicted among blacks MDRD (S/P/Bld) [Vol rate/Area] 86.0 mL/min/{1.73_m2} Normal >60 [facility] Comment on above: Performed By: #### C RP2, PCAL, CMP3M, LIPA4, HEMDF, ESR #### [address] [address] [place], [place] GFR/1.73 sq M.predicted among non-blacks MDRD (S/P/Bld) [Vol rate/Area] 74.2 mL/min/{1.73_m2} Normal >60 [facility] Comment on above: Result Comment: KDIG O [...] RP2, PCAL, CMP3M, LIPA4, HEMDF, ESR #### [address] [address] [place], [place] Protein [Mass/Vol] 6.9 g/dL Normal 6.3-8.2 [facility] Comment on above: Performed By: #### C RP2, PCAL, CMP3M, LIPA4, HEMDF, ESR #### [address] Potassium [Moles/Vol] 4.3 mmol/L Normal 3.5-5.1 [facility] Comment on above: Performed By: #### C RP2, PCAL, CMP3M, LIPA4, HEMDF, ESR #### [address] Albumin [Mass/Vol] 3.4 g/dL Low 3.5-5.0 [facility] Comment on above: Performed By: #### C RP2, PCAL, CMP3M, LIPA4, HEMDF, ESR #### [address] Chloride [Moles/Vol] 105 mmol/L Normal 98-107 [facility] Comment on above: Performed By: #### C RP2, PCAL, CMP3M, LIPA4, HEMDF, ESR #### [address] Sodium [Moles/Vol] 132 mmol/L Low 135-145 [facility] Comment on above: Performed By: #### C RP2, PCAL, CMP3M, LIPA4, HEMDF, ESR #### [address] [address] [place], [place] Comprehensive Metabolic Pane l w/ Reflex to MGOrdered By: Kian Palomares on 01-05-2021 Albumin [Mass/Vol] 3.4 g/dL Low 3.5 - 5.0 g/dL [employer] Work Phone: [phone] ALP (Bld) [Catalytic activity/Vol] 108 U/L 38 - 126 U/L [employer] Work Phone: [phone] ALT [Catalytic activity/Vol] 12 U/L 0 - 34 U/L [employer] Work Phone: [phone] Comment on above: The ALT test is perf ormed by an updated assay method. Please note that the reference intervals have been changed and are now sex specific. Anion gap [Moles/Vol] 5 mmol/L 3 - 13 mmol/L [employer] Work Phone: [phone] AST [Catalytic activity/Vol] 52 U/L High 15 - 46 U/L [employer] Work Phone: [phone] Bilirubin [Mass/Vol] 0.4 mg/dL 0.2 - 1 .3 mg/dL [employer] Work Phone: [phone] Calcium [Mass/Vol] 8.2 mg/dL Low 8.4 - 10. 4 mg/dL [employer] Work Phone: [phone] Chloride [Moles/Vol] 105 mmol/L 98 - 10 7 mmol/L [employer] Work Phone: [phone] CO2 [Moles/Vol] 23 mmol/L 22 - 30 mmol/L [employer] Work Phone: [phone] Creatinine [Mass/Vol] 0.83 mg/dL 0.52 - 1.25 mg/dL [employer] Work Phone: [phone] EGFR IF NonAfrican Ecuadorean 74.2 mL/min >60 [employer] Work Phone: Comment on above: KDIGO guidelines [...] fraction] 6.9 g/dL 6.3 - 8.2 g/dL [facility] Work Phone: GFR/1.73 sq M.predicted among blacks MDRD (S/P/Bld) [Vol rate/Area] 86.0 mL/min/{1.73_m2} >60 [facility] Work Phone: Glucose [Mass/Vol] 109 mg/dL High 70 - 100 mg/dL [facility] Work Phone: Potassium [Moles/Vol] 4.3 mmol/L 3.5 - 5.1 mmol/L [facility] Work Phone: Sodium [Moles/Vol] 132 mmol/L Low 135 - 145 mmol/L [facility] Work Phone: Urea nitrogen (BldV) [Mass/Vol] 16 mg/dL 7 - 20 mg/dL [facility] Work Phone: ED Provider Noteon ED Provider Note Emergency Department Encounter [facility] EMERGENCY DEPT Patient: Charlie Nguyen : 1955 Date of Evaluation: 01/05/2021 ED Provider: RAH Telles As the [id number], I performed a medical screening history and physical exam on this patient. An N95 and gloves were worn during the entirety of this encounter. HISTORY OF PRESENT ILLNESS In brief, Charlie Nguyen is a 65 y.o. female that presents for right knee pain, fever that started today. Patient had a right knee surgery done on the by Dr. Parrish at [facility]. Patient had an infection in her right knee, and underwent an washout. Patient had a knee replacement approximately 4 years ago, and was found to have a septic joint couple of weeks ago, and underwent washout [facility]. Patient has been on IV antibiotics at her rehab facility. Patient states that today, start having worsening pain and a fever of 102 degrees Fahrenheit. Patient states that the swelling and the pain has been getting worse. Patient denies any nausea, vomiting, lightheadedness, dizziness, chest pain, shortness of breath, numbness or tingling. PHYSICAL EXAM ED Triage Vitals [01/05/210] Enc Vitals Group BP (!) 78/51 Pulse [...] ED as soon as available. RAH Telles [facility] RAH Telles 01/05/211920 Emergency Department Encounter [facility] EMERGENCY DEPT Patient: Charlie Nguyen : [...] the pain is a burning intermittent 9/10 [place] (Location/Symptom, Timing/Onset, Context/Setting, Quality, Duration, Modifying Factors, [...] otherwise acutely negative except as in the COWLIT[place]. Past History Past Medical History: Diagnosis Date [...] Physical Activi (more content not included)... Normal [facility] ED Provider Note Emergency Department Encounter [facility] EMERGENCY DEPT Patient: Charlie Nguyen : [...] or pain out of proportion. Focused exam: Bmg-cju-saekwbnxa in no acute distress. Alert and oriented [...] for STEMI. Patient with left axis deviation. FL 167, QRS 92, with a QTC of [...] Patient was discussed with Dr. Danielson at [facility] who accepted patient for admission. Patient [...] Solutions Erika Hudson MD 01/06/21 0505 Normal [facility] Hemogram w/ Autodiffon 01-05 Abs Baso Cnt 0.0 10*3/uL Normal 0.0-0.2 [facility] Comment on above: Performed By: #### C RP2, PCAL, CMP3M, LIPA4, HEMDF, ESR #### [address] Abs Neutrophile Cnt 4.3 10*3/uL Normal 1.8-7.0 [facility] Comment on above: Performed By: #### C RP2, PCAL, CMP3M, LIPA4, HEMDF, ESR #### [address] Erythrocyte distribution width (RBC) [Ratio] 15.0 % High 11.5-14.5 [facility] Comment on above: Performed By: #### C RP2, PCAL, CMP3M, LIPA4, HEMDF, ESR #### [address] Hemoglobin (Bld) [Mass/Vol] 11.3 g/dL Low 11.7-16.0 [facility] Comment on above: Performed By: #### C RP2, PCAL, CMP3M, LIPA4, HEMDF, ESR #### [address] MCHC 32.9 % Normal 32.0-36.0 [facility] Comment on above: Performed By: #### C RP2, PCAL, CMP3M, LIPA4, HEMDF, ESR #### [facility] [address] Hemogram w/ AutodiffOrdered By: Kian Palomares on 01-05-2021 Basophils/100 WBC (Bld) 0.1 % Normal 0.0-2.0 [facility] Work Phone: [phone] Comment on above: Performed By: #### C RP2, PCAL, CMP3M, LIPA4, HEMDF, ESR #### [employer] [place] [address] [place], [place] Eosinophils (Bld) [#/Vol] 0.7 10*3/uL High 0.0-0.5 [facility] Work Phone: [phone] Comment on above: Performed By: #### C RP2, PCAL, CMP3M, LIPA4, HEMDF, ESR #### [employer] [address] Eosinophils/100 WBC (Bld) 11.3 % High 1.0-6.0 [facility] Work Phone: [phone] Comment on above: Performed By: #### C RP2, PCAL, CMP3M, LIPA4, HEMDF, ESR #### [employer] [address] [place] [address] Granulocytes/100 WBC (Bld) 68.6 % Normal 40.0-80.0 [facility] Work Phone: [phone] Comment on above: Performed By: #### C RP2, PCAL, CMP3M, LIPA4, HEMDF, ESR #### [employer] [address] Hematocrit (Bld) [Volume fraction] 34.5 % Low 35.0-47.0 [facility] Work Phone: [phone] Comment on above: Performed By: #### C RP2, PCAL, CMP3M, LIPA4, HEMDF, ESR #### [employer] [address] Lymphocytes (Bld) [#/Vol] 1.1 10*3/uL Normal 1.0-4.3 [facility] Work Phone: [phone] Comment on above: Performed By: #### C RP2, PCAL, CMP3M, LIPA4, HEMDF, ESR #### [employer] [facility] [address] [place], [place] Lymphocytes/100 WBC (Bld) 16.7 % Low 20.0-40.0 [employer] Work Phone: [phone] Comment on above: Performed By: #### C RP2, PCAL, CMP3M, LIPA4, HEMDF, ESR #### [employer] [place] [address] [address] [place], [place] MCH (RBC) [Entitic mass] 31.7 pg Normal 26.0-34.0 [employer] Work Phone: [phone] Comment on above: Performed By: #### C RP2, PCAL, CMP3M, LIPA4, HEMDF, ESR #### [employer] [place] [address] [address] [place], [place] MCV (RBC) [Entitic vol] 96.5 fL Normal 79.0-98.0 S [facility] Work Phone: [phone] Comment on above: Performed By: #### C RP2, PCAL, CMP3M, LIPA4, HEMDF, ESR #### [employer] [place] [address] [address] [place], [place] Monocytes (Bld) [#/Vol] 0.2 10*3/uL Normal 0.0-0.8 [facility] Work Phone: [phone] Comment on above: Performed By: #### C RP2, PCAL, CMP3M, LIPA4, HEMDF, ESR #### [employer] [place] [address] [address] [place], [place] Monocytes/100 WBC (Bld) 3.3 % Normal 2.0-10.0 [facility] Work Phone: [phone] Comment on above: Performed By: #### C RP2, PCAL, CMP3M, LIPA4, HEMDF, ESR #### [employer] [place] [address] [place], [place] Platelet mean volume (Bld) [Entitic vol] 8.3 fL Normal 7.4-10.4 [employer] Work Phone: [phone] Comment on above: Performed By: #### C RP2, PCAL, CMP3M, LIPA4, HEMDF, ESR #### [employer] [address] [place] [phone] Platelets (Bld) [#/Vol] 208 10*3/uL Normal 140-440 [facility] Work Phone: [phone] Comment on above: Performed By: #### C RP2, PCAL, CMP3M, LIPA4, HEMDF, ESR #### [employer] [facility] [place] [address] RBC (Bld) [#/Vol] 3.57 10*6/uL Low 3.80-5.20 [facility] Work Phone: 1 Comment on above: Performed By: #### C RP2, PCAL, CMP3M, LIPA4, HEMDF, ESR #### [employer] [facility] [place], [place] WBC (Bld) [#/Vol] 6.3 10*3/uL Normal 3.6-10.7 [facility] Work Phone: [phone] Comment on above: Performed By: #### C RP2, PCAL, CMP3M, LIPA4, HEMDF, ESR #### [employer] [address] [place] [address] Lactate, SepsisOrdered By: Anitra Palomares on 01-05-2021 Lactate [Moles/Vol] 0.7 mmol/L 0.7 - 2. 0 mmol/L [facility] Work Phone: [phone] Performed by [employer], [address] [place] [address] [facility] Work Phone: [facility] Work Phone: [phone] Lactic Acid, Sepsison 2020 Lactate [Moles/Vol] 0.7 mmol/L Normal 0.7-2.0 [employer] Comment on above: Performed By: #### L ACTS ####[employer] [place] [address] Lipaseon 01-05-2021 Lipase [Catalytic activity/Vol] 29 U/L Normal 23-300 [facility] Comment on above: Performed By: #### C RP2, PCAL, CMP3M, LIPA4, HEMDF, ESR #### [address] [address] LipaseOrdered By: Kian velasquez on 01-05-2021 Lipase [Catalytic activity/Vol] 29 U/L 23 - 300 U/L [employer] Work Phone: No Panel InformationOrdered By: Kian Palomares on 01-05-2021 Interpretation and review of laboratory results Abnormal [facility] Work Phone: Test Performed by [facility] [employer], [address] [place] [id number] [place], [place] [address]A Work Phone: [facility] Work Phone: Interpretation and review of laboratory results Abnormal [facility] Work Phone: Test Performed by [facility] [employer], [address] [place] [id number] [place], [place] [address] Work Phone: [facility] Work Phone: Procalcitoninon 01-05-2021 Procalcitonin 0.99 ng/mL High 0.00-0.09 [facility] Comment on above: Performed By: #### C RP2, PCAL, CMP3M, LIPA4, HEMDF, ESR #### [facility] [employer] [address] [place] [phone] Interpretation See Below Normal [facility] Comment on above: Result Comment: PCT <0.50 = Low risk of severe sepsis and/or septic shock. PCT >2.00 = High risk of severe sepsis and/or septic shock. Performed By: #### C RP2, PCAL, CMP3M, LIPA4, HEMDF, ESR #### [address] [address] ProcalcitoninOrdered By: Lillian Palomares on 01-05-2021 Interpretation See Below [facility] Work Phone: [phone] Comment on above: PCT <0.50 = Low risk of severe sepsis and/or septic shock. PCT >2.00 = High risk of severe sepsis and/or septic shock. Interpretation and review of laboratory results Abnormal [employer] Work Phone: Procalcitonin 0.99 ng/mL High 0.00 - 0.09 ng/mL [employer] Work Phone: 1 Test Performed by [employer] [facility] [place] [address] [employer] Work Phone: 1 [employer] Work Phone: [phone] Respiratory Panel, Molecular , with COVID-19 (Restricted: peds pts or suitable admitted adults)Ordered By: Kian Palomares on 01-05-2021 Respiratory Panel Molecular, with COVID NEGATIVE: No targets were detected by the [email or web address] Upper Respiratory Pathogens PCR Panel. _ Expected Result: Not Detected The [employer] Upper Respiratory Pathogens PCR Panel can detect [...] management decisions. This assay was developed by [employer] and distributed under an Emergency Use Authorization (EUA) granted by the FDA for the qualitative detection of SARS-CoV-2 nucleic acid. Provider and patient fact sheets can be found at https://www.fda.gov/m edia/507082/download and https://www.fda.gov/m edia/549722/download. [employer] Work Phone: Test Performed by [employer] [facility] [place] [address] [employer] Work Phone: [facility] Work Phone: Sed Rateon 01-05-2021 Sed Rate 27 mm/h High 0-20 [facility] [facility] Comment on above: Performed By: #### C RP2, PCAL, CMP3M, LIPA4, HEMDF, ESR #### [facility] [employer] [facility] [address] [place] [address] Sedimentation RateOrdered By : Kian Palomares on 01-05-2021 Sed Rate 27 mm/h High 0 - 20 mm/h [facility] Work Phone: XR CHEST PORTABLEOrdered By: Kian Palomares on 01-05-2021 Patient Name: CHARLIE NGUYEN Diagnostic Radiology ACCESSION EXAM DATE/TIME PROCEDURE ORDERING PROVIDER [id number] 01/05/2021 20:28 EDT CR Chest Portable [id number] KIAN SILVA CPT code 98866 Reason For Exam (CR Chest Portable) sepsis [...] Transcribed Date and Time: 01/05/2021 8:49 [facility] Work Phone: [facility] Results From [facility] - 01/05/2021 8:51 PM EDT Patient Name: CHARLIE NGUYEN Diagnostic Radiology ACCESSION EXAM DATE/TIME PROCEDURE ORDERING PROVIDER [id number] 01/05/2021 20:28 EDT CR Chest Portable [id number] KIAN SILVA CPT code 53174 Reason For Exam (CR Chest Portable) sepsis [...] Transcribed Date and Time: 01/05/2021 8:49 [facility] Work Phone: [facility] Work Phone: XR KNEE RIGHT (3 VIEWS)Order ed By: Kian Palomares on 01-05-2021 [id number] ACCESSION EXAM DATE/TIME PROCEDURE ORDERING PROVIDER [id number] 01/05/2021 20:28 EDT CR Knee 3 Views Right [id number] KIAN SILVA CPT code 89662 Reason For Exam (CR Knee 3 Views [...] Transcribed Date and Time: 01/05/2021 8:45 [facility] Work Phone: [facility] Results From [facility] - 01/05/2021 8:51 PM EDT Patient Name: [id number] Radiology ACCESSION EXAM DATE/TIME PROCEDURE ORDERING PROVIDER [id number] 01/05/2021 20:28 EDT CR Knee 3 Views Right [id number] KIAN SILVA CPT code 56430 Reason For Exam (CR Knee 3 Views [...] Time: 01/05/2021 8:45 [facility] Work Phone: [facility] Work Phone: DS 12-26-2020 [facility] HNO ID: [id number] Author: Alexandria Reddy MD Service: Hospital Medicine [...] MD Consulting: Kurtis Danielson MD Primary Service: [place] [address] MY CONDITION AT DISCHARGE: Stable REASON I [...] No pending results Discharge Disposition Discharge Disposition: Care Home For Intermediate Care/Assisted Living Activity When You [...] trough, ESR, CRP every Thursday faxed to Sanjananakul Pickarde at [phone] ? UTI UA with pyuria; culture?pos for Pseudomonas - patient unable to use quinolone due to quetiapine use - Treated with zosyn, completed course ? Hx of DVT and PE Dx in 2018; on eliquis. stable s/p R-knee wash Eliquis resumed on POD 6 MS (multiple sclerosis) ([facility]) POA: Yes WC bound Urine and fecal incontinence LE parasthesia ? Essential hypertension POA: Yes Controlled - Continue Metoprolol; hold HCTZ? ? Current smoker POA: Yes - Nicotine patches ? Seizure ([facility]) POA: Yes - Continue Depakote ? Depressoin/Anxiety - c/w paxil and seroquil ? ? Treatment Team: Attending Provider: Alexandria Reddy MD Consulting: Kurtis Danielson MD Primary Service: [place] [address] Transitions of Care Critical Issues: NEW BASELINE FOR PATIENT: 1. LAB MONITORING NEEDED: Needs CBC w/ diff, CMP, vancomycin trough, ESR, CRP every Thursday faxed to Sanjana Tarango at [phone] SPECIALIST FOLLOW-UP: 1. infectious diseaes 2. Orthopedic [...] ) Preliminary resu (more content not included)... [facility] NURSING PROGon 12-26-2020 NURSING PROG HNO ID: [id number] Author: Sandra Gonzales, RN Service: ? Author Type: Registered Nurse Type: Nursing Progress Note Filed: 12/26/2020 6:51 PM Note Text: Nursing Progress Note Patient Name: Charlie Nguyen Patient Location: [place] [address]/[facility]P Daily Note: Bedside report received, assumed care [...] pt's request, pt ok to be discharged, flower buncher or picker scheduled for 1830, will monitor. 1845 discharge instructions given to the pt, pt educated on how and when to take pain meds, belongings with pt, transport here, pt left unit via cart, report called to [facility]. This note was completed by: Sandra Gonzales [facility] NUTRITIONon 12-26-2020 NUTRITION HNO ID: [id number] Author: Carmen Garner DTR Service: Nutrition Therapy Author Type: Policy Change Clerks Supervisor Type: Nutrition Filed: 12/26/2020 12:21 PM Note Text: NUTRITION THERAPY SURETY BOND AGENT NOTE SERVICE DATE: 12/26/2020 SERVICE TIME: 10:18 [...] December 26, 2020 TIME: 12:18 PM PAGER: [phone] [facility] THERAPY NTon 12-26-2020 THERAPY NT HNO ID: [id number] Author: KEV Sánchez/Catrachito Service: Occupational Therapy Author Type: Occupational Therapist Type: Therapy (PT/OT/Speech/Resp) Filed: 12/26/2020 2:28 PM Note Text: OCCUPATIONAL THERAPY MISSED VISIT SERVICE DATE: 12/26/2020 SERVICE TIME: 1415 to 1420 ROOM: [address] Attempted Treatment. Patient not seen due to Declined (Pt declines getting up to the chair; wants to sleep as she reports she's been up since 6:30. Continue as able. Nsg notified.). SIGNATURE: KEV Sánchez/Catrachito PATIENT NAME: Charlie Nguyen DATE: December 26, 2020 TIME: 2:28 PM [facility] C difficile PCRon 12-25-2020 C difficile PCR Negative [facility] Comment on above: Performed By: #### C DPCR #### [facility] [address] [place] [address] NURSING PROGon 12-25-2020 NURSING PROG HNO ID: [id number] Author: Eduardo Ley RN Service: Nursing Author Type: Registered Nurse Type: Nursing Progress Note Filed: 12/26/2020 2:51 AM Note Text: Nursing Progress Note Patient Name: Charlie Nguyen Patient [facility] Daily Note: 1900 Assumed Care of patient. Received bedside report from off going nurse. Patient's bed alarm is on and functioning. 2218 patient is assessed as charted and medicated per MAR This note was completed by: Eduardo Ley [facility] NURSING PROG HNO ID: [id number] Author: Turner Patten RN Service: Nursing Author Type: Registered Nurse Type: Nursing Progress Note Filed: 12/25/2020 12:04 PM Note Text: Nursing Progress Note Patient Name: Charlie Nguyen Patient Location: [facility] Daily Note:Assessment as charted. Patient denies any chest pain or shortness of breath. Patient is lethargic and disoriented. Patient did not believe she was in the hospital. Goal for the day is to control pain. Bed in low position, bed alarm on, call light in reach. Will continue to monitor. This note was completed by: Turner Patten [facility] NURSING PROG HNO ID: [id number] Author: Eduardo Ley RN Service: Nursing Author Type: Registered Nurse Type: Nursing Progress Note Filed: 12/25/2020 2:01 AM Note Text: Nursing Progress Note Patient Name: Charlie Nguyen Patient [facility]: [facility] Daily Note: 1900 Assumed Care of patient. Received bedside report from off going nurse. Patient's bed alarm is on and functioning. 2211 patient is aANDo x3, patient is assessed as charted and medicated per MAR This note was completed by: Eduardo Ley [facility] THERAPY NTon 12-25-2020 THERAPY NT HNO ID: [id number] Author: Nathaly Bueno PTA Service: Physical Therapy Author Type: Transplant Coordinator Type: Therapy (PT/OT/Speech/Resp) Filed: 12/25/2020 12:51 PM Note Text: Attestation signed by Iris Pickens PT at 12/25/2020 2:47 PM I reviewed and agree with the documentation corresponding to this therapy visit. SIGNATURE: Iris Pickens PT DATE: December 25, 2020 TIME: 2:47 PM PHYSICAL THERAPY MISSED VISIT SERVICE DATE: 12/25/2020 SERVICE TIME: 1000 to 1000 ROOM: [place] [address]P Attempted Treatment. Patient not seen due to (pt lethargic and with low BP per nurse). SIGNATURE: Nathaly Bueno PTA PATIENT NAME: Charlie Nguyen DATE: December 25, 2020 TIME: 12:51 PM Normal [facility] THERAPY NT HNO ID: [id number] Author: ARTHUR Madrid Service: Occupational Therapy Author Type: Baccarat Dealer Type: Therapy (PT/OT/Speech/Resp) Filed: 12/25/2020 12:27 PM Note Text: Attestation signed by KEV Lemon/Catrachito at 12/25/2020 3:33 PM Collaboration with [facility] occurred and documentation corresponding to this therapy visit was reviewed. ANJUM Lemon OTR/L OCCUPATIONAL THERAPY MISSED VISIT SERVICE DATE: 12/25/2020 SERVICE TIME: 1000 to 1000 ROOM: [facility]P Attempted Treatment. Patient not seen due to (per nurse pt lethargic and confused with low blood pressure hold this AM). SIGNATURE: ARTHUR Madrid PATIENT NAME: Charlie Nguyen DATE: December 25, 2020 TIME: 12:27 PM [facility] Vancomycinon 12-25-2020 Vancomycin 13.3 ug/mL Normal 10.0-20.0 [facility] Comment on above: Result Comment: Refe rence ranges and high/low indicator flags are provided as general guidelines only. The treating physician must determine appropriate target levels/dosing based on the specific clinical situation. Basic Metabolic Panlon 12-24 Anion gap [Moles/Vol] 12 mmol/L Normal 9-18 [facility] Calcium [Mass/Vol] 9.4 mg/dL Normal 8.5-10.2 [facility] Chloride [Moles/Vol] 93 mmol/L Low 97-105 [facility] CO2 [Moles/Vol] 30 mmol/L Normal 22-33 [facility] Creatinine [Mass/Vol] 0.82 mg/dL Normal 0.58-0.96 [facility] eGFR- Amer. >60 Normal [facility] eGFR-All Other Races >60 Normal [facility] Comment on above: Result Comment: eGFR (Estimated [...] GFR. Glucose [Mass/Vol] 85 mg/dL Normal 74-99 [facility] Potassium [Moles/Vol] 4.2 mmol/L Normal 3.7-5.1 [facility] Sodium [Moles/Vol] 135 mmol/L Low 136-144 [facility] Urea nitrogen [Mass/Vol] 7 mg/dL Normal 7-21 [facility] CASE MANAGEMon 12-24-2020 CASE MANAGEM HNO ID: [id number] Author: Laura Silva RN Service: Case Management Author Type: Registered Nurse Type: Care Mgt Progress Note Filed: 12/24/2020 2:16 PM Note Text: CARE MANAGEMENT PROGRESS NOTE SERVICE DATE: 12/24/2020 SERVICE TIME: 11:41 AM LOS: 5 days Needs Prior to Discharge: Discharge Transportation;Other: See Comment (updated COVID) 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 Facility aware that PICC has been placed [...] 24, 2020 TIME: 11:41 AM PAGER/CONTACT #: [phone] Normal [facility] Coronavirus 2019on 1 SARS-CoV-2 (COVID-19) RNA TANVIR+probe Ql (Unsp spec) UPPER RESPIRATORY TRACT SWAB Normal [facility] Comment on above: Performed By: #### C OVID ####[place] [id number] [place], [place] [phone] SARS-CoV-2 (COVID-19) RNA TANVIR+probe Ql (Unsp spec) Negative for COVID19 (SARS CoV2) by RT-PCR or equivalent method. Normal Negative for COVID19 (SARS CoV2) by RT-PCR or equivalent method. [facility] Comment on above: Result Comment: This test was developed and its performance characteristics determined by [facility] [place]. This test has been authorized by FDA under an Emergency Use Authorization (EUA). This test has been validated in accordance with the FDA's Guidance Document Policy for Diagnostics Testing in Laboratories Certified to Perform High Complexity Testing under CLIA prior to Emergency use Authorization for Coronavirus Disease 2019 during the Public Health Emergency issued on July 30, 2019. Test performed by [facility], [facility] [place], [address] [place], [place] [address]. Performed By: #### C OVID ####[place] [address] [place], [place] [phone] NURSING PROGon 12-24-2020 NURSING PROG HNO ID: [id number] Author: Turner Patten RN Service: Nursing Author Type: Registered Nurse Type: Nursing Progress Note Filed: 12/24/2020 11:33 AM Note Text: Nursing Progress Note Patient Name: Charlie Nguyen Patient Location: [place] [address] [address] Daily Note:Assessment as charted. Patient resting in bed. Patient denies any chest pain or shortness of breath. Patient complains of 8/10 pain in right knee, medicated for pain. Goal for the day is to control pain and increase mobility. Bed in low position, bed alarm on, call light in reach. Will continue to monitor. This note was completed by: Turner Patten [facility] THERAPY NTon 12-24-2020 THERAPY NT HNO ID: [id number] Author: KEV Sánchez/Catrachito Service: Occupational Therapy Author Type: Occupational Therapist Type: Therapy (PT/OT/Speech/Resp) Filed: 12/24/2020 5:51 PM Note Text: Occupational Therapy Treatment SERVICE DATE: 12/24/2020 SERVICE TIME: 1025 to 1050 ROOM: [address] Recommended Discharge Disposition: Subacute/SNF Recommended Discharge [...] Patient Lives With: Facility Care (LTC at [facility]) Assistance Available: 24 Hour Entry To Home: No Stairs Tub/Shower Type: walk in shower Laundry: facility does laundry Equipment Owned: Wheelchair (reporting has own WC; manual) Prior Functional Level: Required Assistance Assistance Required With: Cleaning;Laundry;Safe ty;Self Care;Shopping;Transpo rtation;Medication Management;Meals Prior Functional Level Comments: pt questionable historian; reporting from [facility]; reporting pivot transfers only to [...] Sit Pivot (x2, mod cues for sequencing, APPLICATION SUPPORT LEAD) Toilet/Commode Shower Functional Mobility (non ambulatory) Blank [...] with: Minimal Assistan (more content not included)... [facility] THERAPY NT HNO ID: [id number] Author: Toshia Velázquez PT Service: Physical Therapy Author Type: Physical Therapist Type: Therapy (PT/OT/Speech/Resp) Filed: 12/24/2020 1:14 PM Note Text: Physical Therapy Treatment SERVICE DATE: 12/24/2020 SERVICE TIME: 1025 to 1050 ROOM: [address] Recommended Discharge Disposition Comments: rec trial [...] Patient Lives With: Facility Care (LTC at [facility]) Assistance Available: 24 Hour Entry To Home: No Stairs Tub/Shower Type: walk in shower Laundry: facility does laundry Equipment Owned: Wheelchair (reporting has own WC; manual) Prior Functional Level: Required Assistance Assistance Required With: Cleaning;Laundry;Safe ty;Self Care;Shopping;Transpo rtation;Medication Management;Meals Prior Functional Level Comments: pt questionable historian; reporting from [facility]; reporting pivot transfers only to [...] (ADL);Muscle Weakness (generalized) Interventions Provided: Therapeutic Activity (27806) Therapeutic Activity (90491) Treatment Minutes: 25 $ Therapeutic Activity (79741) Billed Units: 2 units Training AND education provided in: Bed mobility, Benefits of in-hospital mobility, Discharge planning, Equipme (more content not included)... Normal [facility] Vancomycinon 12-24-2020 Vancomycin 24.5 ug/mL High 10.0-20.0 [facility] Comment on above: Result Comment: Refe rence ranges and high/low indicator flags are provided as general guidelines only. The treating physician must determine appropriate target levels/dosing based on the specific clinical situation. CBCon 12-23-2020 Absolute nRBC <0.01 Normal <0.01 [facility] Erythrocyte distribution width (RBC) [Ratio] 14.6 % Normal 11.5-15.0 [facility] Hematocrit (Bld) [Volume fraction] 35.9 % Low 36.0-46.0 [facility] Hemoglobin (Bld) [Mass/Vol] 11.7 g/dL Normal 11.5-15.5 [facility] MCH 32.2 pG Normal 26.0-34.0 [facility] MCHC (RBC) [Mass/Vol] 32.6 g/dL Normal 30.5-36.0 [facility] MCV (RBC) [Entitic vol] 98.9 fL Normal 80.0-100.0 [facility] Platelet mean volume (Bld) [Entitic vol] 10.0 fL Normal 9.0-12.7 [facility] Platelets (Bld) [#/Vol] 213 10*3/uL Normal 150-400 [facility] RBC (Bld) [#/Vol] 3.63 10*6/uL Low 3.90-5.20 [facility] WBC (Bld) [#/Vol] 5.70 10*3/uL Normal 3.70-11.00 [facility] NURSING PROGon 12-23-2020 NURSING PROG HNO ID: [id number] Author: Toshia Frye RN Service: Nursing Author Type: Registered Nurse Type: Nursing Progress Note Filed: 12/24/2020 5:51 AM Note Text: Nursing Progress Note Patient Name: Charlie Nguyen Patient Location: [place] [address]- Bedside report received, assumed care of [...] importance of staggering medications that can cause PLANNER CHIEF depression. Pt states she is able to take them together at the correction. Educated regarding hospital policy due to safety reasons. Pt remains upset. Not receptive to education at this time. 0300- prior assessment remains unchanged, will continue to monitor. This note was completed by: Toshia Frye [facility] NURSING PROG HNO ID: [id number] Author: Terry Moreau RN Service: Nursing Author Type: Registered Nurse Type: Nursing Progress Note Filed: 12/23/2020 12:14 PM Note Text: Nursing Progress Note ? Patient Name: Charlie Nguyen Patient Location: [place] [address] Daily note: 0700 Assumed care of patient. [...] This note was completed by: Terry Davidson CAST IRON DIPPER [facility] NURSING PROG HNO ID: [id number] Author: Eduardo Ley RN Service: Nursing Author Type: Registered Nurse Type: Nursing Progress Note Filed: 12/23/2020 2:54 AM Note Text: Nursing Progress Note Patient Name: Charlie Nguyen Patient Location: [place] [address] Daily Note: 1899 Assumed Care of patient. Received bedside report [...] This note was completed by: Eduardo Ley [facility] Renal Function Panelon 12-23 Albumin [Mass/Vol] 3.1 g/dL Low 3.9-4.9 [facility] Anion gap [Moles/Vol] 7 mmol/L Low 9-18 [facility] Calcium [Mass/Vol] 8.1 mg/dL Low 8.5-10.2 [facility] Chloride [Moles/Vol] 100 mmol/L Normal 97-105 [facility] CO2 [Moles/Vol] 33 mmol/L Normal 22-33 [facility] Creatinine [Mass/Vol] 0.80 mg/dL Normal 0.58-0.96 [facility] eGFR- Amer. >60 Normal [facility] eGFR-All Other Races >60 Normal [facility] Comment on above: Result Comment: eGFR (Estimated [...] GFR. Glucose [Mass/Vol] 83 mg/dL Normal 74-99 [facility] Phosphate [Mass/Vol] 5.2 mg/dL High 2.7-4.8 [facility] Potassium [Moles/Vol] 4.8 mmol/L Normal 3.7-5.1 [facility] Sodium [Moles/Vol] 140 mmol/L Normal 136-144 [facility] Urea nitrogen [Mass/Vol] 7 mg/dL Normal 7-21 [facility] THERAPY NTon 12-23-2020 THERAPY NT HNO ID: [id number] Author: Steffen Jeff PTA Service: Physical Therapy Author Type: Transplant Coordinator Type: Therapy (PT/OT/Speech/Resp) Filed: 12/23/2020 1:48 PM Note Text: Attestation signed by Deja Strickland PT at 12/23/2020 1:52 PM I reviewed and agree with the assessment as documented above. SIGNATURE: Deja Strickland PT DATE: December 23, 2020 TIME: 1:52 PM PHYSICAL THERAPY MISSED VISIT SERVICE DATE: 12/23/2020 SERVICE TIME: 1355 to 1355 ROOM: [address] Attempted Treatment. Patient not seen due to (pt. reports that she needs to get cleaned up after having a BM. PCNA notified. Will attempt to return this PM as able.). SIGNATURE: Steffen Jeff PTA PATIENT NAME: Charlie Nguyen DATE: December 23, 2020 TIME: 1:48 PM Normal [facility] CBCon 12-22-2020 Absolute nRBC <0.01 Normal <0.01 [facility] Erythrocyte distribution width (RBC) [Ratio] 15.0 % Normal 11.5-15.0 [facility] Hematocrit (Bld) [Volume fraction] 39.5 % Normal 36.0-46.0 [facility] Hemoglobin (Bld) [Mass/Vol] 12.1 g/dL Normal 11.5-15.5 [facility] MCH 31.0 pG Normal 26.0-34.0 [facility] MCHC (RBC) [Mass/Vol] 30.6 g/dL Normal 30.5-36.0 [facility] MCV (RBC) [Entitic vol] 101.3 fL High 80.0-100.0 [facility] Platelet mean volume (Bld) [Entitic vol] 10.3 fL Normal 9.0-12.7 [facility] Platelets (Bld) [#/Vol] 217 10*3/uL Normal 150-400 [facility] RBC (Bld) [#/Vol] 3.90 10*6/uL Normal 3.90-5.20 [facility] WBC (Bld) [#/Vol] 7.69 10*3/uL Normal 3.70-11.00 [facility] CONSULT PROGon 12-22-2020 CONSULT PROG HNO ID: [id number] Author: Luli Richards MD Service: Infectious Disease [...] DATE: December 22, 2020 TIME: 10:28 AM [facility] NURSING PROGon 12-22-2020 NURSING PROG HNO ID: [id number] Author: Terry Moreau RN Service: Nursing Author Type: Registered Nurse Type: Nursing Progress Note Filed: 12/22/2020 3:56 PM Note Text: Nursing Progress Note ? Patient Name: Charlie Nguyen Patient Location: [place] [address] Daily note: 0700 Assumed care of [...] was completed by: Terry Davidson RN BSN [facility] NURSING PROG HNO ID: [id number] Author: Sanjay Isaac RN Service: Nursing Author Type: Registered Nurse Type: Nursing Progress Note Filed: 12/22/2020 5:47 AM Note Text: Nursing Progress Note Patient Name: Charlie Nguyen Patient Location: -4A-[id number][facility]P Daily Note: 1900 Assumed care of pt. [...] This note was completed by: Sanjay Isaac [facility] Renal Function Panelon 12-22 Albumin [Mass/Vol] 3.0 g/dL Low 3.9-4.9 [facility] Anion gap [Moles/Vol] 8 mmol/L Low 9-18 [facility] Calcium [Mass/Vol] 8.5 mg/dL Normal 8.5-10.2 [facility] Chloride [Moles/Vol] 99 mmol/L Normal 97-105 [facility] CO2 [Moles/Vol] 31 mmol/L Normal 22-33 [facility] Creatinine [Mass/Vol] 0.81 mg/dL Normal 0.58-0.96 [facility] eGFR- Amer. >60 Normal [facility] eGFR-All Other Races >60 Normal [facility] Comment on above: Result Comment: eGFR (Estimated [...] GFR. Glucose [Mass/Vol] 79 mg/dL Normal 74-99 [facility] Phosphate [Mass/Vol] 5.1 mg/dL High 2.7-4.8 [facility] Potassium [Moles/Vol] 4.9 mmol/L Normal 3.7-5.1 [facility] Sodium [Moles/Vol] 138 mmol/L Normal 136-144 [facility] Urea nitrogen [Mass/Vol] 7 mg/dL Normal 7-21 [facility] Vancomycinon 12-22-2020 Vancomycin 11.7 ug/mL Normal 10.0-20.0 [facility] Comment on above: Result Comment: Refe rence ranges and high/low indicator flags are provided as general guidelines only. The treating physician must determine appropriate target levels/dosing based on the specific clinical situation. CBCon 12-21-2020 Absolute nRBC <0.01 Normal <0.01 [facility] Erythrocyte distribution width (RBC) [Ratio] 14.6 % Normal 11.5-15.0 [facility] Hematocrit (Bld) [Volume fraction] 33.9 % Low 36.0-46.0 [facility] Hemoglobin (Bld) [Mass/Vol] 10.6 g/dL Low 11.5-15.5 [facility] MCH 30.6 pG Normal 26.0-34.0 [facility] MCHC (RBC) [Mass/Vol] 31.3 g/dL Normal 30.5-36.0 [facility] MCV (RBC) [Entitic vol] 98.0 fL Normal 80.0-100.0 [facility] Platelet mean volume (Bld) [Entitic vol] 10.6 fL Normal 9.0-12.7 [facility] Platelets (Bld) [#/Vol] 202 10*3/uL Normal 150-400 [facility] RBC (Bld) [#/Vol] 3.46 10*6/uL Low 3.90-5.20 [facility] WBC (Bld) [#/Vol] 9.04 10*3/uL Normal 3.70-11.00 [facility] CONSULT PROGon 12-21-2020 CONSULT PROG HNO ID: [id number] Author: Sybil Randhawa [facility] Service: Pharmacy Author Type: Pharmacist Type: Consult [...] care. Please contact pharmacy if questions. Sybil Sydnee [facility] [phone] [facility] NURSING PROGon 12-21-2020 NURSING PROG HNO ID: [id number] Author: Kimberly Headley RN Service: Nursing Author Type: Registered Nurse Type: Nursing Progress Note Filed: 12/21/2020 3:23 PM Note Text: Nursing Progress Note Patient Name: Charlie Nguyen Patient Location: [place] [address]/[facility] Daily Note: 0700 Assumed patient care, bedside [...] This note was completed by: Kimberly Headley [facility] NURSING PROG HNO ID: [id number] Author: Eduardo Ley RN Service: Nursing Author Type: Registered Nurse Type: Nursing Progress Note Filed: 12/20/2020 11:28 PM Note Text: Nursing Progress Note Patient Name: Charlie Nguyen Patient Location: [facility] Daily Note: 0 Assumed Care of patient. Received bedside report from off going nurse. Patient's bed alarm is on and functioning. Will continue to monitor. 2108 patient is aANDo x3, patient is assessed as charted and medicated per MAR This note was completed by: Eduardo Ley [facility] PT EDon 12-21-2020 PT ED HNO ID: [id number] Author: Chaitanya Champagne RN Service: PICC Team Author Type: Registered Nurse Type: Patient Education Filed: 12/21/2020 12:46 PM Note Text: PATIENT EDUCATION TOPIC: PROCEDURE / SURGERY: Procedure/Surgery: PICC INSERTION PATIENT NAME: Charlie Nguyen PATIENT LOCATION: [place] [address]/[facility] READINESS TO LEARN COGNITIVE ABILITY: Alert and [...] None Electronically Signed By: Chaitanya Champagne Normal [facility] Renal Function Panelon 12-21 Albumin [Mass/Vol] 3.0 g/dL Low 3.9-4.9 [facility] Anion gap [Moles/Vol] 8 mmol/L Low 9-18 [facility] Calcium [Mass/Vol] 8.7 mg/dL Normal 8.5-10.2 [facility] Chloride [Moles/Vol] 102 mmol/L Normal 97-105 [facility] CO2 [Moles/Vol] 28 mmol/L Normal 22-33 [facility] Creatinine [Mass/Vol] 0.64 mg/dL Normal 0.58-0.96 [facility] eGFR- Amer. >60 Normal [facility] eGFR-All Other Races >60 Normal [facility] Comment on above: Result Comment: eGFR (Estimated [...] GFR. Glucose [Mass/Vol] 99 mg/dL Normal 74-99 [facility] Phosphate [Mass/Vol] 3.0 mg/dL Normal 2.7-4.8 [facility] Potassium [Moles/Vol] 4.1 mmol/L Normal 3.7-5.1 [facility] Sodium [Moles/Vol] 138 mmol/L Normal 136-144 [facility] Urea nitrogen [Mass/Vol] 7 mg/dL Normal 7-21 [facility] THERAPY NTon 12-21-2020 THERAPY NT HNO ID: [id number] Author: Deja Strickland PT Service: Physical Therapy Author Type: Physical Therapist Type: Therapy (PT/OT/Speech/Resp) Filed: 12/21/2020 2:10 PM Note Text: Physical Therapy Evaluation SERVICE DATE: 12/21/2020 SERVICE TIME: 1355 to 1355 ROOM: [address] PHYSICAL THERAPY MISSED VISIT SERVICE DATE: 12/21/2020 SERVICE TIME: 1355 to 1355 ROOM: [address] Attempted Evaluation. Patient not seen due to Declined. Patient requesting to rest as she reports she had a busy morning. Will defer PT session today. SIGNATURE: Deja Strickland PT PATIENT NAME: Charlie Nguyen DATE: December 21, 2020 TIME: 2:09 PM [facility] THERAPY NT HNO ID: [id number] Author: Toshia Montano OT/L Service: Occupational Therapy Author Type: Occupational Therapist Type: Therapy (PT/OT/Speech/Resp) Filed: 12/21/2020 11:31 AM Note Text: OCCUPATIONAL THERAPY MISSED VISIT SERVICE DATE: 12/21/2020 SERVICE TIME: 1131 to 1131 ROOM: [address] Attempted Treatment. Patient not seen due to Test/Procedure. SIGNATURE: Toshia Montano OT/L PATIENT NAME: Charlie Nguyen DATE: December 21, 2020 TIME: 11:31 AM Normal [facility] Vancomycinon 12-21-2020 Vancomycin 23.3 ug/mL High 10.0-20.0 [facility] Comment on above: Result Comment: Refe rence ranges and high/low indicator flags are provided as general guidelines only. The treating physician must determine appropriate target levels/dosing based on the specific clinical situation. CASE MGT INIT [facility] 2020 CASE MGT INIT [facility] HNO ID: [id number] Author: Denise Gale RN Service: Case Management [...] Current Advance Directive: Health Care Power of Hearth Feeder In Chart: Yes Up To Date and [...] Receive Any Community Services or Home Care?: Retirement Has the Patient Been in a Retirement Facility in the Past 30 days?: Yes SOCIAL: Living Arrangements: Nursing Facility Facility Information: [facility] Financial Resources: Disabled Primary Contact: Extended Emergency [...] Completely I feel financially burdened by my [id number]-[id number] expenses for my prescription medication:: 0 - Disagree Completely Risk Score: 0 Patient is categorized as: Low risk < 2 Are you interested in bedside delivery of your medications? No Is Patient Psychosocially Complex?: No ASSESSMENT AND PLAN: Medical Needs: Medical Needs: None Psychosocial Needs: Psychosocial Needs: None FREEDOM OF CHOICE EXPLAINED: Veteran of Choice Given: Yes Level of Care Discussed: Retirement Facility Financial Disclosure Provided: Yes Provider List: Rehab Facility (Patient is LTC at [facility]) POTENTIAL TRANSITION PLANS Retirement Facility/Intermediate Care Facility Met with patient at bedside. She was transferred to us from [facility] ED for a joint infection. Patient is care home care at [facility] with plans to return there when medically cleared. Return referral sent. Therapy scheduled to evaluate patient today. Will await return response from [facility] for any barriers to return. Cultures pending obtained from OR. Case management will continue to follow and assist with discharge planning needs. SIGNATURE: Denise Gale RN PATIENT NAME: Charlie Nguyen DATE: December 20, 2020 TIME: 10:57 AM PAGER/CONTACT #: [phone] [facility] CONSULTon 12-20-2020 CONSULT HNO ID: [id number] Author: Sanjana Tarango MD Service: Infectious Disease Author Type: Physician Type: Consults Filed: 12/20/2020 1:30 PM Note Text: INFECTIOUS DISEASE INITIAL CONSULT PATIENT NAME: Charlie Nguyen SERVICE DATE: 12/20/2020 SERVICE TIME: 1:23 PM REASON FOR CONSULT: Prosthetic joint infection REQUESTING PHYSICIAN: Maricel Levy PRIMARY CARE PHYSICIAN: Moreno Oatse MD HPI Ms. Nguyen is a 65 [...] fevers or chills. She had arthrocentesis with 93213 nucleated cells. She went to OR for [...] with meals., Disp: (more content not included)... [facility] NURSING PROGon 12-20-2020 NURSING PROG HNO ID: [id number] Author: Sandra Gonzales, MUSHTAQ Service: ? Author Type: Registered Nurse Type: Nursing Progress Note Filed: 12/20/2020 6:48 PM Note Text: Nursing Progress Note Patient Name: Charlie Nguyen Patient [facility] Daily Note: Bedside report received, assumed care [...] This note was completed by: Sandra Gonzales [facility] NURSING PROG HNO ID: [id number] Author: Eduardo Ley, MUSHTAQ Service: Nursing Author Type: Registered Nurse Type: Nursing Progress Note Filed: 12/20/2020 1:20 AM Note Text: Nursing Progress Note Patient Name: Charlie Nguyen Patient Location: [place] [address] Daily Note: 2000 Assumed Care of patient. Received report from PACU Patient's bed alarm is on and functioning. Patient oriented to call system and room. 2103 patient is assessed as charted and medicate per MAR This note was completed by: Eduardo Ley [facility] THERAPY NTon 12-20-2020 THERAPY NT HNO ID: [id number] Author: Arelis Castanon, PT Service: Physical Therapy Author Type: Physical Therapist Type: Therapy (PT/OT/Speech/Resp) Filed: 12/20/2020 3:10 PM Note Text: Physical Therapy Evaluation SERVICE DATE: 12/20/2020 SERVICE TIME: 1040 to 1110 ROOM: [address] Recommended Discharge Disposition Comments: rec trial [...] Patient Lives With: Facility Care (LTC at [facility]) Assistance Available: 24 Hour Entry To Home: No Stairs Tub/Shower Type: walk in shower Laundry: facility does laundry Equipment Owned: Wheelchair (reporting has own WC; manual) Prior Functional Level: Required Assistance Assistance Required With: Cleaning;Laundry;Safe ty;Self Care;Shopping;Transpo rtation;Medication Management;Meals Prior Functional Level Comments: pt questionable historian; reporting from [facility]; reporting pivot transfers only to [...] Weakness (generalized) Interventions Provided: Evaluation;Therapeuti c Activity (74895) $ Evaluation-Low (82397) Billed Units: 1 unit Therapeutic Activity (98730) Treatment Minutes: 15 $ Therapeutic Activity (60641) Billed Units: 1 unit Training AND education provided in: Bed mobility, Benefits of in-hospital mobility, Discharge planning, Equipment, Positioning, Precautions/restricti ons, Role of Physical Therapy, Transfers The following therapeutic skills were used: Activity dosing, Cues for sequencing/proper technique for activity, Cuing tactile, Cuing verbal, Cuing visual, Physical assist Total Timed Code Treatment Minutes: 15 Total Treatment Time ( (more content not included)... [facility] THERAPY NT HNO ID: [id number] Author: KEV Colunga/Catrachito Service: Occupational Therapy Author Type: Occupational Therapist Type: Therapy (PT/OT/Speech/Resp) Filed: 12/20/2020 12:40 PM Note Text: Occupational Therapy Evaluation SERVICE DATE: 12/20/2020 SERVICE TIME: 899 to 929 ROOM: [address] Recommended Discharge Disposition: Subacute/SNF Recommended Discharge [...] Home Environment Patient Lives With: Facility Care ([facility] ([facility] ?)) Assistance Available: 24 Hour Entry To Home: No Stairs Tub/Shower Type: walk in shower Laundry: facility does laundry Equipment Owned: Cane;Commode-Bedside; Wheeled Walker;Wheelchair Prior Functional Level: Required Assistance Assistance Required With: Cleaning;Laundry;Meal s;Safety;Self Care;Shopping;Transpo rtation Prior Functional Level Comments: Pt is a questionable historian; Pt has been at [facility] since 10/2019 per chart; using w/c [...] with: Minimal Ass (more content not included)... [facility] AFB Cult and Stainon 021 AFB Cult and Stain Sp. Request/Comment: - Specimen received in sterile container. Smear Result - No acid fast bacilli seen by fluorochrome stain Culture Result - No Acid Fast Bacilli isolated after 42 days [facility] Comment on above: Performed By: #### A ####[facility] [place], [place] [id number] ANES POSTPROC EVALon 021 ANES POSTPROC EVAL HNO ID: [id number] Author: Angela Womack MD Service: Anesthesiology Author Type: Anesthesiologist Type: Anesthesia Postprocedure Evaluation Filed: 12/19/2020 7:47 PM Note Text: POST ANESTHESIA EVALUATION NOTE : 1955 Procedure Summary Date: 12/19/20 Room / Location: OR06A / [facility] OR Anesthesia Start: 1525 Anesthesia Stop: 1830 Procedure: REVISION JOINT TOTAL KNEE ONE COMPONENT (Right Leg) 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]) Surgeons: Scott Parrish MD Responsible Provider: Angela Womack MD Anesthesia Type: general ASA Status: 4 - Emergent Anesthesia Type: general Last vitals Vitals Value Taken Time BP 107/59 12/19/200 Temp 36.6 ?C (97.9 ?F) 12/19/20 1823 [...] December 19, 2020 TIME: 7:47 PM CSN: [id number] [facility] ANES PRE-OPon 12-19-2020 ANES PRE-OP HNO ID: [id number] Author: Sulaiman Castro MD Service: Anesthesiology Author [...] of 12/19/2020 Medication Dose Route Frequency - [JUL Hold due to Transfer] acetaminophen 1,000 mg tab(s) (TYLENOL) 1,000 mg ORAL q 6 H PRN - [JUL Hold due to Transfer] diazePAM 5 mg [...] short acting, (more content not included)... Normal [facility] APTTon 12-19-2020 aPTT Coag (Bld) [Time] 33.3 s High 23.0-32.4 [facility] Comment on above: Result Comment: Unfr [...] laboratory APTT reagent in use throughout the [facility]. Anaerobe Cultureon 1 Anaerobe Culture Sp. Request/Comment: - Specimen received in sterile container. Culture Result - Negative for anaerobes. No Cutibacterium (Propionibacterium) acnes isolated. 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 Item Serial No. Windows Application Packager Lot No. LRB No. Used Action BUSHING FEMORAL MODULAR ROTATE HINGE KNEE - [id number] Joint - Knee BUSHING FEMORAL MODULAR ROTATE HINGE KNEE [facility] [id number] Right 1 Implanted BUSHING FEMORAL MODULAR ROTATE HINGE KNEE - [id number] Joint - Knee BUSHING FEMORAL MODULAR ROTATE HINGE KNEE [facility] [id number] Right 1 Implanted COMPONENT XS SMALL MEDIUM TIBIAL ROTATE HINGE KNEE - [id number] Joint - Knee COMPONENT XS SMALL MEDIUM TIBIAL ROTATE HINGE KNEE [facility] [id number] Right 1 Implanted INSERT GMRS [id number] S1 S2 TIBIAL MODULAR ROTATE HINGE PROXIMAL - [id number] Joint - Knee INSERT GMRS [id number] S1 S2 TIBIAL MODULAR ROTATE HINGE PROXIMAL [facility] [id number] Right 1 Implanted SLEEVE TIBIAL MODULAR ROTATE HINGE KNEE - [id number] Joint - Knee SLEEVE TIBIAL MODULAR ROTATE HINGE KNEE [facility] Right 1 Implanted INSERT GMRS NEUTRAL BUMPER MODULAR ROTATE HINGE KNEE PROXIMAL - [id number] Joint - Knee INSERT GMRS NEUTRAL BUMPER MODULAR ROTATE HINGE KNEE PROXIMAL [facility] Right 1 Implanted AXLE FEMORAL MODULAR ROTATE HINGE KNEE - [id number] Joint - Knee AXLE FEMORAL MODULAR ROTATE HINGE KNEE [facility] Right 1 Implanted Estimated Blood [...] Resident December 19, 2020 6:20 PM Normal [facility] Basic Metabolic Panlon 12-19 Anion gap [Moles/Vol] 9 mmol/L Normal 9-18 [facility] Calcium [Mass/Vol] 9.0 mg/dL Normal 8.5-10.2 [facility] Chloride [Moles/Vol] 102 mmol/L Normal 97-105 [facility] CO2 [Moles/Vol] 26 mmol/L Normal 22-33 [facility] Creatinine [Mass/Vol] 0.81 mg/dL Normal 0.58-0.96 [facility] eGFR- Amer. >60 Normal [facility] eGFR-All Other Races >60 Normal [facility] Comment on above: Result Comment: eGFR (Estimated [...] GFR. Glucose [Mass/Vol] 73 mg/dL Low 74-99 [facility] Potassium [Moles/Vol] 3.8 mmol/L Normal 3.7-5.1 [facility] Sodium [Moles/Vol] 137 mmol/L Normal 136-144 [facility] Urea nitrogen [Mass/Vol] 15 mg/dL Normal 7-21 [facility] Body Fluid Cult/Stnon 2020 Body Fluid Cult/Stn Sp. Request/Comment: - Specimen received in sterile container. Smear Result - No organisms seen Many Polymorphonuclear leukocytes Culture Result - No growth 14 days Normal [facility] Comment on above: Performed By: #### B FCUL ####[facility] UOB[address] [place], [place] [address]RjgzhjrgxUniversity Hospitals [facility] Center[address] [place] [address] [phone] Body Fluid Cult/Stn Sp. Request/Comment: - Specimen received in sterile container. Smear Result - No organisms seen Many Polymorphonuclear leukocytes Culture Result - No growth 5 days Normal [facility] Comment on above: Performed By: #### B FCUL ####[address] [phone] CASE MANAGEMon 12-19-2020 CASE MANAGEM HNO ID: [id number] Author: Jossy Warner RN Service: Case Management Author Type: Registered Nurse Type: Care Mgt Progress Note Filed: 12/19/2020 1:48 PM Note Text: CARE MANAGEMENT PROGRESS NOTE SERVICE DATE: 12/19/2020 SERVICE TIME: 1:45 PM LOS: 0 days Patient screened and discharge needs evaluated. Interior Design Professional to follow for discharge planning. SIGNATURE: Jossy Warner RN PATIENT NAME: Charlie Nguyen DATE: December 19, 2020 TIME: 1:39 PM PAGER/CONTACT #: [phone] Normal [facility] CBCon 12-19-2020 Absolute nRBC <0.01 Normal <0.01 [facility] Erythrocyte distribution width (RBC) [Ratio] 15.2 % High 11.5-15.0 [facility] Hematocrit (Bld) [Volume fraction] 40.6 % Normal 36.0-46.0 [facility] Hemoglobin (Bld) [Mass/Vol] 12.9 g/dL Normal 11.5-15.5 [facility] MCH 31.8 pG Normal 26.0-34.0 [facility] MCHC (RBC) [Mass/Vol] 31.8 g/dL Normal 30.5-36.0 [facility] MCV (RBC) [Entitic vol] 100.0 fL Normal 80.0-100.0 [facility] Platelet mean volume (Bld) [Entitic vol] 10.4 fL Normal 9.0-12.7 [facility] Platelets (Bld) [#/Vol] 168 10*3/uL Normal 150-400 [facility] RBC (Bld) [#/Vol] 4.06 10*6/uL Normal 3.90-5.20 [facility] WBC (Bld) [#/Vol] 10.80 10*3/uL Normal 3.70-11.00 [facility] CONSULTon 12-19-2020 CONSULT HNO ID: [id number] Author: Scott Parrish MD Service: Orthopaedic Surgery [...] Applicator by RECTA (more content not included)... [facility] CONSULT PROGon 12-19-2020 CONSULT PROG HNO ID: [id number] Author: Royer Winslow [facility] Service: Pharmacy Author Type: Pharmacist Type: Consult [...] [place] any questions[place] [phone]. Age: [age] year old Allergies: ALLERGIES Allergen Reactions - Nsaids (Non-Steroid* GI Upset - Gabapentin GI Upset - Macrobid [Nitrofura* Hives - Tramadol Contraindication-Medi mike Surgical Drug interaction with amitriptyline - told not to take due to increased seizure risk - [place] [Hydrocodone-* GI Upset Didn't do anything for [...] 24.4 (H) 11/09/2019 0700 13.3 Royer Winslow, [facility] Normal [facility] Coronavirus 2019on 1 SARS-CoV-2 (COVID-19) RNA TANVIR+probe Ql (Unsp spec) UPPER RESPIRATORY TRACT SWAB Normal [facility] Comment on above: Performed By: #### C OVID ####[facility] [address] [place], [place] [phone] SARS-CoV-2 (COVID-19) RNA TANVIR+probe Ql (Unsp spec) Negative for COVID19 (SARS CoV2) by RT-PCR or equivalent method. Normal Negative for COVID19 (SARS CoV2) by RT-PCR or equivalent method. [facility] Comment on above: Result Comment: This test was developed and its performance characteristics determined by [facility] [place]. This test has been authorized by FDA under an Emergency Use Authorization (EUA). This test has been validated in accordance with the FDA's Guidance Document Policy for Diagnostics Testing in Laboratories Certified to Perform High Complexity Testing under CLIA prior to Emergency use Authorization for Coronavirus Disease 2019 during the Public Health Emergency issued on July 30, 2019. Test performed by [facility], [facility] [place], [address], [place] [address]. Performed By: #### C OVID ####[facility] [place], [place] [phone] ED NOTEon 12-19-2020 ED NOTE HNO ID: [id number] Author: ADILENE Guardado Service: ? Author Type: Patient Care Yarn Carrier Type: ED Notes Filed: 12/19/2020 10:02 AM Note Text: Patient states that she is frustrated with care and is in 9/10 pain. Nurse is notified and aware. At this time an external female catheter has also been placed for adequate voiding. [facility] ED NOTE HNO ID: [id number] Author: Joselin Jeff RN Service: ? Author Type: Registered Nurse Type: ED Notes Filed: 12/19/2020 7:04 AM Note Text: Covid obtained and walked to lab Normal [facility] ED NOTE HNO ID: [id number] Author: Joselin Jeff RN Service: ? Author Type: Registered Nurse Type: ED Notes Filed: 12/19/2020 3:27 AM Note Text: [facility] ED NOTE HNO ID: [id number] Author: Joselin Jeff RN Service: ? Author Type: Registered Nurse Type: ED Notes Filed: 12/19/2020 2:26 AM Note Text: Sent from [facility] ER for possible right knee infection. Right knee replaced recently. Patient c/o 10/10 pain. Placed on O2 by squad for pulse ox at 90% on room air upon arrival. Placed on 3L here for pulse ox at 90% on 2 liters NC. Normal [facility] ED PROV NOTEon 12-19-2020 ED PROV NOTE HNO ID: [id number] Author: Russell Holley, DO Service: ? Author Type: Physician Type: [...] had prior knee replacement surgery here at [facility]. He was sent for rule out septic [...] take due to increased seizure risk - [place] [Hydrocodone-* GI Upset Didn't do anything for [...] SIGNATURE: DO Russell Fernandez DO 12/19/20 0536 [facility] Fungal Cult / Smearon 2020 Fungal Cult / Smear Sp. Request/Comment: - Specimen received in sterile container. Smear Result - No fungus seen. Culture Result - No Fungus isolated after 30 days [facility] Comment on above: Performed By: #### F CULSM ####[facility] [address] [place], [place] [phone] HISTORY PHYSICALon HISTORY PHYSICAL HNO ID: [id number] Author: Angelia Pitt APRN.CNP Service: Hospital Medicine [...] BP allows SIGNATURE: Rufino Torres MD PAGER: [phone] ( please page [phone] between 5 pm and 7 am) DATE of SERVICE: December 19, 2020 TIME of SERVICE: 11:24 AM DEPARTMENT OF HOSPITAL MEDICINE HISTORY AND PHYSICAL EXAM SERVICE DATE: 12/19/2020 SERVICE TIME: 10:09 AM w Primary Care Physician: Moreno Oates MD NIGHT AND WEEKEND COVERAGE: [facility] COVERAGE: Patient admitted to hospital medicine From 0700 - 163, please contact pager [phone] for patient issues. From 1630 - 07, please contact the Night Hospitalist on pager [phone] for patient issues. Subjective CHIEF COMPLAINT: Right [...] take due to increased seizure risk - [place] [Hydrocodone-* GI Upset Didn't do anything for [...] Valium daily a (more content not included)... [facility] NURSING PROGon 12-19-2020 NURSING PROG HNO ID: [id number] Author: Senait Girard RN Service: Nursing Author Type: Registered Nurse Type: Nursing Progress Note Filed: 12/19/2020 1:42 PM Note Text: Right Femoral Nerve Block SS Dr. Ky YEE Patient verbalized her understanding of the nerve block procedure [facility] NURSING PROG HNO ID: [id number] Author: Terry Moreau RN Service: Nursing Author Type: Registered Nurse Type: Nursing Progress Note Filed: 12/19/2020 7:33 PM Note Text: Nursing Progress Note PATIENT NAME: Charlie Nguyen PATIENT LOCATION: [facility] Daily note: 1315 Patient arrived to 4WT in stable condition. Oriented to room and call light system. Updated on pain management board. Skin assessment completed. Report given to Preop Nurse by phone for OR. 1320 UA/UC sent to lab. [phone] Patient off unit in surgery. Report given to on coming night MUSHTAQ magana. This note was completed by: Terry Davidson RN BSN [facility] OPERATIVE NOon 12-19-2020 OPERATIVE NO HNO ID: [id number] Author: Scott Parrish MD Service: Orthopaedic Surgery Author Type: Physician Type: Operative Report Filed: 12/20/2020 11:35 AM Note Text: OPERATIVE/PROCEDURE REPORT LOG ID: [id number] SURGERY/PROCEDURE DATE: 12/19/2020 INCISION/PROCEDURE START TIME: 4:26 PM INCISION CLOSE/PROCEDURE END TIME: 6:06 PM SURGEON(S)/PROCEDURAL IST(S) AND INFANT AND TODDLER TEACHER(S): Surgeon(s) and Role: * Scott Parrish MD - Primary * Trish Moran DO - Resident - Assisting * Chris Finn MD - Fellow No Additional Staff Surgeon: Scott Parrish MD Procedure(s): Right knee arthrotomy with irrigation and debridement (with polyethylene exchange)- CPT 11782-10 A 22 modifier is added to the [...] the assistants with me immediately available. IMPLANTS: [facility] 13 mm polyethylene and hinge components [...] December 20, 2020 TIME: 11:35 AM Normal [facility] Protimeon 12-19-2020 PT INR 1.0 Normal 0.9-1.3 [facility] Comment on above: Result Comment: Selina min K Antagonist (VKA) Therapeutic Range: INR 2 to 3 (Target INR of 2.5) Note: For patients treated with VKA drugs, such as warfarin, the [place] [employer] 2012 Guideline recommends [...] Chest 2012, 141:7S-47S Heather RA, et al. [facility] 2017, 70: 252-289 PT Sec 10.9 sec Normal 9.7-13.0 [facility] Routine Analysis (Synovial F ld)on 12-19-2020 Clarity (U) Cloudy Critically abnormal Clear [facility] Comment on above: Performed By: #### R TSYNF ####[facility] [address] [place], [place] [phone] Color (U) Julianna Critically abnormal Yellow [facility] Comment on above: Performed By: #### R TSYNF ####[facility] [address] [place], [place] [phone] Crystals LM Nom (Urine sed) None seen Normal None seen [facility] Comment on above: Performed By: #### R YELITZAF ####[place] [address], [place] [phone] Lymphocytes/100 WBC (Bld) 3 % Normal [facility] Comment on above: Performed By: #### R YELITZAF ####[place] [address] [address], [place] [phone] Monocytes/100 WBC (Bld) 5 % Normal [facility] Comment on above: Performed By: #### R YELITZAF ####[place] [address], [place] [phone] Neutrophils/100 WBC (Bld) 92 % High 0-25 [facility] Comment on above: Performed By: #### Farideh TORREF ####[place] [address] [phone] Path Interp Crystals SEE COMMENT Normal [facility] Comment on above: Result Comment: Revi ewed by Kvng Harris M.D., Ph.D ([id number]) Performed By: #### R YELITZAF ####[place] [address], [place] [phone] RBC (Bld) [#/Vol] 0.009 10*6/uL High <2000 [facility] Comment on above: Performed By: #### R YELITZAF ####[place] [address], [place] [phone] Site Right Knee Normal [facility] Comment on above: Performed By: #### R YELITZAF ####[place] [address], [place] [phone] Slide Number [id number] Normal [facility] Comment on above: Performed By: #### Farideh TORREF ####[place] [address], [place] [phone] Spec Site, Crystal Right Knee Normal [facility] Comment on above: Performed By: #### R TSYNF ####[facility], [place] [phone] Suprntnt Clarity Clear Normal Clear [facility] Comment on above: Performed By: #### R TSYNF ####[facility], [place] [phone] Suprntnt Color Yellow Critically abnormal Colorless [facility] Comment on above: Performed By: #### R TSYNF ####[facility], [place] [phone] SYNOVIAL COMMENT SEE COMMENT Normal [facility] Comment on above: Result Comment: PREL IMINARY REPORT No diagnostic crystals seen. SEE FINAL SYN FLD PATH REVIEW No malignant cells, no microorganisms Performed By: #### R TSYNF ####[facility] [place] [phone] Synovial Path Interp SEE COMMENT Normal [facility] Comment on above: Result Comment: Revi ewed by Kvng Harris M.D., Ph.D ([id number]) Performed By: #### R TSYNF ####[facility] [place], [place] [phone] [place] [address] /uL High 0-200 [facility] Comment on above: Performed By: #### R TSYNF ####[facility] [place], [place] [phone] SURGICAL PATHOLOGYon 021 SURGICAL PATHOLOGY Specimen originated from [facility] Specimen #: [id number] Submitting Physician: MARICEL LEVY FINAL DIAGNOSIS Right knee hardware, removal - Components of a knew prosethesis (gross examination only). MORENITA/Margaret 12/20/2020 Royer Wheatley M.D. (Electronic Signature) ____ [...] device is inscribed 13 mm, XSML/SML/S1/S2, 6481-3-213, THE437. The articular surface is smooth and unremarkable. Also identified is a chavez-metallic stemmed tibial tray component measuring 7.5 x 5.6 x 3.7 cm. This device is inscribed [id number], 6481-2-100, XSML-XLG. The outer surface is unremarkable. Also identified is a chavez - metallic surgical annemarie measuring 6.0 cm in length x 1.0 cm in diameter. This device is inscribed [id number], 6481-2-120. The outer surface is unremarkable. Also identified are 4 chavez polyethylene, irregular components, measuring 2.1 to 4.1 cm in greatest dimension, and 6.0 x 4.0 x 2.2 cm in aggregate. The largest device bears no inscription. The second largest device is inscribed [id number], neutral. The smaller devices are inscribed JL609, 6481-2-110 and JM913, 6481-2-110. No tissue is present. No sections are submitted. The specimen is reviewed with Dr. Wheatley. Margaret 12/20/2020 HE PATIENT Gross examination performed at [facility], [address] [place] [address] Date of Report: 12/21/2020 Date of Procedure: 12/19/2020 Date of Receipt: 12/20/2020 Submitted by: MARICEL LEVY Additional Physician(s): RUFINO Gong PATRICK Location: 4A ORTHO/VASCULAR Diagnostic interpretation performed at [facility], [address], [facility], [facility]. CLIA Number: [id number] Normal [facility] Tissue Cult / Stainon 2020 Tissue Cult / Stain Sp. Request/Comment: - Specimen received in sterile container. Smear Result - No organisms seen No Polymorphonuclear Leukocytes Culture Result - No growth 14 days Normal [facility] Comment on above: Performed By: #### T ISCUL ####[facility] [address] [place] [address] [place] [place] [phone] Tissue Cult / Stain Sp. Request/Comment: - Specimen received in sterile container. Smear Result - No organisms seen No Polymorphonuclear Leukocytes Culture Result - No growth 14 days Normal [facility] Comment on above: Performed By: #### T ISCUL ####[facility] [id number] [facility],[place] [address] [address] [phone] Tissue Cult / Stain Sp. Request/Comment: - Specimen received in sterile container. Smear Result - No organisms seen No Polymorphonuclear Leukocytes Culture Result - No growth 14 days [facility] Comment on above: Performed By: #### T ISCUL ####[place] [phone] Urinalysison 12-19-2020 Bacteria 1+ /HPF Critically abnormal Negative [facility] Bilirubin, Urine Negative Normal Negative [facility] Clarity (U) Turbid Critically abnormal Clear [facility] Color (U) Yellow Critically abnormal Yellow [facility] Comments SEE COMMENT Normal [facility] Comment on above: Result Comment: Micr oscopic Examination Performed Epithelial cells LM Ql (Urine sed) SEE COMMENT Critically abnormal Occasional [facility] Comment on above: Result Comment: 2+ Squamous Epithelial Cells Glucose Ql (U) Negative Normal Negative [facility] Hemoglobin/Blood,Ur 2+ Critically abnormal Negative [facility] Ketones Ql (U) Negative Normal Negative [facility] Leukest 500 Critically abnormal Negative [facility] Nitrite Ql (U) Negative Normal Negative [facility] pH (U) 6.0 [pH] Normal 5.0-8.0 [facility] Protein, Urine 1+ Critically abnormal Negative [facility] RBC 51-100 Critically abnormal 0-3 [facility] Specific [place], Ur 1.017 Normal 1.005-1.030 [facility] Urine, Other FOR EAST USE ONLY SEE COMMENT Normal [facility] Comment on above: Result Comment: 1+ Mucous Urobilinogen (U) [Mass/Vol] Negative Normal 0.2-1.0 [facility] WBC 100+ /HPF Critically abnormal 0-5 [facility] Urine Cultureon 12-19-2020 Bacteria identified Cx Nom (U) Sp. Request/Comment: - Specimen received in preservative Culture Result - >=100,000 CFU/ml Pseudomonas aeruginosa --> ABNORMAL ALERT ORGANISM: Pseudomonas aeruginosa METHOD: Minimum inhibitory concentration(Vitek) Antibiotic Interp ANDREA Status Gentamicin SUSCEPTIBLE <=1 F Ciprofloxacin SUSCEPTIBLE <=0.25 F Cefepime SUSCEPTIBLE <=1 F Piperacillin/Tazobac SUSCEPTIBLE <=4 F Meropenem INTERMEDIATE 4 F Critically abnormal [facility] Comment on above: Performed By: #### U RCUL ####[facility] [address] [place], [place] [phone] XR CHEST 1V FRONTAL PORTon 0 12-19-2020 [...] Dec 19 2020 7:59PM EST [id number] [facility] XR KNEE 2V AP/LAT RTon 12-19 XR [...] Dec 19 2020 7:35PM EST [id number] [facility] XR KNEE 4V AP/LAT/OBLS RTon 12-19-2020 XR [...] 19 2020 3:46AM EST [id number] Normal [facility] Basic Metabolic PanelOrdered By: Jorge [...] mg/dL [facility] Work Phone: EGFR IF NonAfrican Ecuadorean 78.8 mL/min >60 [facility] Work Phone: Comment [...] MDRD (S/P/Bld) [Vol rate/Area] mL/min/{1.73_m2} >60 mL/min [employer] Work Phone: Glucose [Mass/Vol] 96 mg/dL 70 - 100 mg/dL [employer] Work Phone: 1 Interpretation and review of laboratory results Abnormal [facility] Work Phone: Potassium [Moles/Vol] 4.0 mmol/L 3.5 - 5.1 mmol/L [facility] Work Phone: Sodium [Moles/Vol] 134 mmol/L Low 135 - 145 mmol/L [facility] Work Phone: 1 Urea nitrogen (BldV) [Mass/Vol] 20 mg/dL 7 - 20 mg/dL [facility] Work Phone: Test Performed by [employer], [facility] [address] Work Phone: [facility] Work Phone: 1 C-REACTIVE PROTEINOrdered By : Jorge Mejia on 12-18-2020 CRP [Mass/Vol] 237 mg/L High 0.0 - 6.0 mg/L [facility] Work Phone: Comment on above: . Interpretation and review of laboratory results Abnormal [facility] Work Phone: Test Performed by [employer], [facility] [address] Work Phone: [facility] Work Phone: Hemogram (CBC) w/Auto DiffOr dered By: Jorge Mejia on 12-18-2020 Absolute Baso # 0.1 10*3/uL 0.0 - 0.2 10*3/uL [employer] Work Phone: Absolute Neut # 8.5 10*3/uL High 1.8 - 7.0 10*3/uL [employer] Work Phone: Basophils/100 WBC (Bld) 0.5 % 0.0 - 2.0 % [employer] Work Phone: 1 22 Eosinophils (Bld) [#/Vol] 0.1 10*3/uL 0.0 - 0.5 10*3/uL [employer] Work Phone: 1 22 Eosinophils/100 WBC (Bld) 0.5 % Low 1.0 - 6.0 % [employer] Work Phone: 1 Granulocytes/100 WBC (Bld) 73.0 % 40.0 - 80.0 % [facility] Work Phone: 1 Hematocrit (Bld) [Volume fraction] 37.1 % 35.0 - 47.0 % [employer] Work Phone: Hemoglobin.gastrointesti nal spec 1 Ql (Stl) 12.2 g/dL 11.7 - 16.0 g/dL [employer] Work Phone: 1 Interpretation and review of laboratory results Abnormal [employer] Work Phone: Lymphocytes (Bld) [#/Vol] 2.0 10*3/uL 1.0 - 4.3 10*3/uL [employer] Work Phone: 1 22 Lymphocytes/100 WBC (Bld) 17.1 % Low 20.0 - 40.0 % [employer] Work Phone: MCH (RBC) [Entitic mass] 31.5 pg 26. 0 - 34.0 pg [employer] Work Phone: MCHC (RBC) [Mass/Vol] 32.9 % 32.0 - 36.0 % [employer] Work Phone: MCV (RBC) [Entitic vol] 95.7 fL 79.0 - 98.0 fL [employer] Work Phone: Monocytes (Bld) [#/Vol] 1.0 10*3/uL High 0.0 - 0.8 10*3/uL [employer] Work Phone: 22 Monocytes/100 WBC (Bld) 8.9 % 2.0 - 10.0 % [employer] Work Phone: 1 Platelet distribution width (Bld) [Ratio] 15.6 % High 11.5 - 14.5 % [employer] Work Phone: 1 Platelet mean volume (Bld) [Entitic vol] 8.4 fL 7.4 - 10.4 fL [facility] Work Phone: Platelets (Bld) [#/Vol] 188 10*3/uL 140 - 440 10*3/uL [employer] Work Phone: RBC (Bld) [#/Vol] 3.88 10*6/uL 3.80 - 5.2 0 10*6/uL [facility] Work Phone: 1 WBC (Bld) [#/Vol] 11.7 10*3/uL High 3.6 - 10.7 10*3/uL [employer] Work Phone: Test Performed by [employer], [address] [place] [address] [employer] Work Phone: [employer] Work Phone: Lactic Acid, PlasmaOrdered B y: Jorge Mejia on 12-18-2020 Lactate [Moles/Vol] 0.7 mmol/L 0.7 - 2. 0 mmol/L [facility] Work Phone: Test Performed by [employer], [facility] [address] [address] Work Phone: [facility] Work Phone: Sedimentation RateOrdered By : Jorge Mejia on 12-18-2020 Interpretation and review of laboratory results Abnormal [facility] Work Phone: Sed Rate 30 mm/h High 0 - 20 mm/h [facility] Work Phone: Test Performed by [facility], [facility] Latoya Pedroza [address] Work Phone: [facility] Work Phone: XR KNEE RIGHT (3 VIEWS)Order ed By: oJrge Mejia on 12-18-2020 Patient Name: CHARLIE NGUYEN Diagnostic Radiology ACCESSION EXAM DATE/TIME PROCEDURE ORDERING PROVIDER [id number] 12/18/2020 21:31 EDT CR Knee 3 Views Right MD MEJIA VIJAY CPT code 40779 Reason For Exam (CR Knee 3 Views [...] BILLIE --- Final --- Dictating Physician: MD APBLO WENDELL Signed Date and Time: 12/18/2020 9:42 pm Signed by: MD PABLO WENDELL Transcribed Date and Time: 12/18/2020 9:43 [facility] Work Phone: [facility], [facility] Incoming Rad[facility] Results From [facility] - 12/18/2020 9:43 PM EDT Patient Name: [id number] Diagnostic Radiology ACCESSION EXAM DATE/TIME PROCEDURE ORDERING PROVIDER [id number] 12/18/2020 21:31 EDT CR Knee 3 Views Right MD MEJIA VIJAY CPT code 87557 Reason For Exam (CR Knee 3 Views [...] [facility] Work Phone: Basic Metabolic Panelon 09-0 4-2020 Anion gap [Moles/Vol] 8 mmol/L [place] Calcium [Mass/Vol] 8.1 mg/dL Low 8.4 - 10. 4 mg/dL [place] Chloride [Moles/Vol] 101 mmol/L 98 - 10 7 mmol/L [place] CO2 [Moles/Vol] 26 mmol/L 22 - 30 mmol/L [place] Creatinine [Mass/Vol] 0.56 mg/dL 0.52 - 1.25 mg/dL [place] EGFR IF NonAfrican Ecuadorean >90.0 >60 mL/min [place], [place] Comment on above: KDIGO guidelines pro [...] MDRD (S/P/Bld) [Vol rate/Area] mL/min/{1.73_m2} >60 mL/min [place] Glucose [Mass/Vol] 82 mg/dL 70 - 100 mg/dL [place] Interpretation and review of laboratory results Abnormal [place] Potassium [Moles/Vol] 4.2 mmol/L 3.5 - 5.1 mmol/L [place] Sodium [Moles/Vol] 135 mmol/L 135 - 145 mmol/L [place] Urea nitrogen [Mass/Vol] 28 mg/dL High 7 - 20 mg/d L [place] Test Performed by [facility], [address], [place], [place] [address] [place], [place] CBC Auto Differentialon 09 Absolute Baso # 0.1 10*3/uL 0 - 0.2 10*3/uL [place] Absolute Neut # 4.2 10*3/uL 1.8 - 7 10*3/uL [place] Basophils/100 WBC (Bld) 1.1 % 0 - 2 % [place] Eosinophils (Bld) [#/Vol] 0.5 10*3/uL 0 - 0.5 10*3/uL [place] Eosinophils/100 WBC (Bld) 6.4 % High 1 - 6 % [place] Erythrocyte distribution width (RBC) [Ratio] 16.2 % High 11.5 - 14.5 % [place] Granulocytes/100 WBC (Bld) 56.3 % 40 - 80 % [place] Hematocrit (Bld) [Volume fraction] 40.0 % 35 - 47 % [place] Hemoglobin (Bld) [Mass/Vol] 12.6 g/dL 11.7 - 16 g/dL [place] Interpretation and review of laboratory results Abnormal [place] Lymphocytes (Bld) [#/Vol] 1.8 10*3/uL 1 - 4.3 10*3/uL [place] Lymphocytes/100 WBC (Bld) 24.4 % 20 - 40 % [place] MCH (RBC) [Entitic mass] 27.4 pg 26 - 34 pg [place] MCHC (RBC) [Mass/Vol] 31.5 % Low 32 - 36 % [place] MCV (RBC) [Entitic vol] 87.0 fL 79 - 98 fL [place], [place] Monocytes (Bld) [#/Vol] 0.9 10*3/uL High 0 - 0.8 10*3/uL [place], [place] Monocytes/100 WBC (Bld) 11.8 % High 2 - 10 % [place] Platelet mean volume (Bld) [Entitic vol] 8.5 fL 7.4 - 10.4 fL [place] Platelets (Bld) [#/Vol] 291 10*3/uL 140 - 440 10*3/uL [place] RBC (Bld) [#/Vol] 4.60 10*6/uL 3.8 - 5.2 10*6/uL [place] WBC (Bld) [#/Vol] 7.5 10*3/uL 3.6 - 10.7 10*3/uL [place] Test Performed by [facility], [address], [place], [place] [address] [place] Basic Metabolic Panelon 09-0 -2019 Anion gap [Moles/Vol] 4 mmol/L [place] Calcium [Mass/Vol] 8.0 mg/dL Low 8.4 - 10. 4 mg/dL [place] Chloride [Moles/Vol] 108 mmol/L High 98 - 10 7 mmol/L [place] CO2 [Moles/Vol] 28 mmol/L 22 - 30 mmol/L [place] Creatinine [Mass/Vol] 0.63 mg/dL 0.52 - 1.25 mg/dL [place] EGFR IF NonAfrican Ecuadorean >90.0 >60 mL/min [place] Comment on above: KDIGO guidelines pro [...] MDRD (S/P/Bld) [Vol rate/Area] mL/min/{1.73_m2} >60 mL/min [place] Glucose [Mass/Vol] 90 mg/dL 70 - 100 mg/dL [place] Interpretation and review of laboratory results Abnormal [place] Potassium [Moles/Vol] 4.0 mmol/L 3.5 - 5.1 mmol/L [place] Sodium [Moles/Vol] 140 mmol/L 135 - 145 mmol/L [place] Urea nitrogen [Mass/Vol] 27 mg/dL High 7 - 20 mg/d L [place] Test Performed by [email or web address], [address] [place] [id number] [place] [address] CBC Auto Differentialon -0 Erythrocyte distribution width (RBC) [Ratio] 16.0 % High 11.5 - 14.5 % [place] Hematocrit (Bld) [Volume fraction] 37.6 % 35 - 47 % [place] Hemoglobin (Bld) [Mass/Vol] 11.9 g/dL 11.7 - 16 g/dL [place] Interpretation and review of laboratory results Abnormal [place] MCH (RBC) [Entitic mass] 27.2 pg 26 - 34 pg [place] MCHC (RBC) [Mass/Vol] 31.6 % Low 32 - 36 % [place] MCV (RBC) [Entitic vol] 86.3 fL 79 - 98 fL [place] Platelet mean volume (Bld) [Entitic vol] 8.7 fL 7.4 - 10.4 fL [place] Platelets (Bld) [#/Vol] 298 10*3/uL 140 - 440 10*3/uL [place] RBC (Bld) [#/Vol] 4.36 10*6/uL 3.8 - 5.2 10*6/uL [place] WBC (Bld) [#/Vol] 6.4 10*3/uL 3.6 - 10.7 10*3/uL [place] Test Performed by [employer] [facility], [address], [place], [place] [address] [facility], [place] COVID-19on 02-02-2020 SARS-CoV-2 Not Detected Expected Result: Not Detected _ Real-time, RT-PCR performed on the [employer] System by the [facility] Microbiology Service. Negative results do not preclude SARS-CoV-2 infection and should not be used as the sole basis for treatment or other patient management decisions. This assay was developed by [employer] and distributed under an Emergency Use Authorization (EUA) granted by the FDA for the qualitative detection of SARS-CoV-2 nucleic acid. [facility], [place] Test Performed by [employer] [facility], [address] [place] [address] Specimen Source Comment:Nasopharyngea l Swab [facility], [place] Manual Differentialon 2019 Absolute Baso # 0.0 10*3/uL 0 - 0.2 10*3/uL [facility], [place] Absolute Eos # 0.3 10*3/uL 0 - 0.5 10*3/uL [facility], [place] Absolute Lymph # 1.7 10*3/uL 1.1 - 4.5 10*3/uL [facility], [place] Absolute [place]rowers # 0.8 10*3/uL 0.2 - 1.1 10*3/uL [facility], [place] Absolute Neut # 3.6 10*3/uL 2.2 - 8.2 10*3/uL [facility] Anisocytosis Ql (Bld) Slight [facility]- [place] Bands 1 % 0 - 3 % [facility] Basophils 0 % 0 - 2 % [facility] Eosinophils 5 % 1 - 6 % [facility]- [place] Hypochromia Slight [facility] Interpretation and review of laboratory results Abnormal [facility], [place] Lymphocytes 27 % 20 - 40 % [facility]- [place], [place] Monocytes 12 % High 2 - 10 % [facility] PLATELETS, LARGE Slight [facility] [place] [facility] [place] Poikilocytes Slight [facility]- [place] RBC morphology finding Nom (Bld) ABNORMAL [facility], [place] Seg Neutrophils 55 % 40 - 80 % [facility] JAIDA TOTAL CELLS COUNTED 100 [facility] Test Performed by [facility], [address], [place], [place] [address] [facility] Otheron 02-02-2020 Blood Culture, Routine No growth at 5 days. [facility] Test Performed by [facility], [address] [place] [address] Specimen Source Comment:Blood [facility] CHEST PORTABLEon 02-02-20 20 Rod[place], [facility] Incoming Radiology Results From [facility] - 02/02/2020 7:39 PM EDT Patient Name: CHARLIE NGUYEN ---Diagnostic Radiology--- Exam Date/Time 02/02/2020 16:25:00 EDT Exam CR Chest Portable Ordering Physician YAMILKA STEWART Accession Number [id number] CPT4 Codes 38411 () Reason For Exam hypoxia Report CHEST [...] AHMAD Transcribed Date and Time: 02/02/2020 7:38 [facility] JAIDA Patient Name: CHARLIE NGUYEN ---Diagnostic Radiology--- Exam Date/Time 02/02/2020 16:25:00 EDT Exam CR Chest Portable Ordering Physician YAMILKA STEWART Accession Number [id number] CPT4 Codes 42091 () Reason For Exam hypoxia Report CHEST [...] AHMAD Transcribed Date and Time: 02/02/2020 7:38 [place] NM BONE SCAN LIMITEDon 01-31 Patient Name: CHARLIE NGUYEN ---Nuc Med--- Exam Date/Time 02/01/2020 13:27:26 EDT Exam NM Bone Imaging Limited Ordering Physician DEJA KOEHLER Accession Number [id number] CPT4 Codes 10688 () Reason For Exam R TKA pain [...] R Transcribed Date and Time: 02/01/2020 3:37 [place] [facility], [facility] Incoming Radiology Results From [facility] - 02/01/2020 3:38 PM EDT Patient Name: CHARLIE NGUYEN ---Nuc Med--- Exam Date/Time 02/01/2020 13:27:26 EDT Exam NM Bone Imaging Limited Ordering Physician DEJA KOEHLER Accession Number [id number] CPT4 Codes 07660 () Reason For Exam R TKA pain [...] R Transcribed Date and Time: 02/01/2020 3:37 [place] Basic Metabolic Panelon 09-0 Anion gap [Moles/Vol] 11 mmol/L [place] Calcium [Mass/Vol] 9.0 mg/dL 8.4 - 10. 4 mg/dL [place] Chloride [Moles/Vol] 105 mmol/L 98 - 10 7 mmol/L [place] CO2 [Moles/Vol] 24 mmol/L 22 - 30 mmol/L [place] Creatinine [Mass/Vol] 0.41 mg/dL Low 0.52 - 1.25 mg/dL [place] EGFR IF NonAfrican Ecuadorean >90.0 >60 mL/min [place] Comment on above: KDIGO guidelines pro [...] MDRD (S/P/Bld) [Vol rate/Area] mL/min/{1.73_m2} >60 mL/min [place] Glucose [Mass/Vol] 93 mg/dL 70 - 100 mg/dL [place] Interpretation and review of laboratory results Abnormal [place] Potassium [Moles/Vol] 3.7 mmol/L 3.5 - 5.1 mmol/L [place] Sodium [Moles/Vol] 140 mmol/L 135 - 145 mmol/L [place] Urea nitrogen [Mass/Vol] 8 mg/dL 7 - 20 mg/d L [place] Test Performed by [facility] [employer] [facility], [address] [place], [place] [id number] [place] [address] C-Reactive Proteinon 020 CRP [Mass/Vol] 21.7 mg/L High 0 - 6 mg/L [place] Comment on above: . Interpretation and review of laboratory results Abnormal [place] Test Performed by [employer] [facility], [address] [place], [place] [id number] [place] [address] CBC Auto Differentialon 09-0 Absolute Baso # 0.1 10*3/uL 0 - 0.2 10*3/uL [place] Absolute Neut # 2.8 10*3/uL 1.8 - 7 10*3/uL [place] Basophils/100 WBC (Bld) 1.0 % 0 - 2 % [place] Eosinophils (Bld) [#/Vol] 0.3 10*3/uL 0 - 0.5 10*3/uL [place] Eosinophils/100 WBC (Bld) 5.4 % 1 - 6 % [place] Erythrocyte distribution width (RBC) [Ratio] 15.8 % High 11.5 - 14.5 % [place] Granulocytes/100 WBC (Bld) 49.4 % 40 - 80 % [place] Hematocrit (Bld) [Volume fraction] 36.8 % 35 - 47 % [place] Hemoglobin (Bld) [Mass/Vol] 11.8 g/dL 11.7 - 16 g/dL [place] Interpretation and review of laboratory results Abnormal [place] Lymphocytes (Bld) [#/Vol] 1.9 10*3/uL 1 - 4.3 10*3/uL [place] Lymphocytes/100 WBC (Bld) 33.6 % 20 - 40 % [place] MCH (RBC) [Entitic mass] 27.6 pg 26 - 34 pg [place] MCHC (RBC) [Mass/Vol] 31.9 % Low 32 - 36 % [place] MCV (RBC) [Entitic vol] 86.4 fL 79 - 98 fL [place], [place] Monocytes (Bld) [#/Vol] 0.6 10*3/uL 0 - 0.8 10*3/uL [place], [place] Monocytes/100 WBC (Bld) 10.6 % High 2 - 10 % [place] Platelet mean volume (Bld) [Entitic vol] 8.4 fL 7.4 - 10.4 fL [place] Platelets (Bld) [#/Vol] 264 10*3/uL 140 - 440 10*3/uL [place] RBC (Bld) [#/Vol] 4.26 10*6/uL 3.8 - 5.2 10*6/uL [place] WBC (Bld) [#/Vol] 5.6 10*3/uL 3.6 - 10.7 10*3/uL [place] Test Performed by [facility], [address], [place], [place] [address] [place], [place] Sedimentation Rateon 020 Interpretation and review of laboratory results Abnormal [place] Sed Rate 38 mm/h High 0 - 20 mm/h [place] Test Performed by [employer] [facility], [address], [place], [place] [address] [place] Basic Metabolic Panelon 01-01 Anion gap [Moles/Vol] 8 mmol/L [place] Calcium [Mass/Vol] 8.0 mg/dL Low 8.4 - 10. 4 mg/dL [place] Chloride [Moles/Vol] 108 mmol/L High 98 - 10 7 mmol/L [place] CO2 [Moles/Vol] 25 mmol/L 22 - 30 mmol/L [place] Creatinine [Mass/Vol] 0.4 mg/dL Low 0.52 - 1.25 mg/dL [place] EGFR IF NonAfrican Ecuadorean >90.0 >60 mL/min [place] Comment on above: KDIGO guidelines pro [...] MDRD (S/P/Bld) [Vol rate/Area] mL/min/{1.73_m2} >60 mL/min [place] Glucose [Mass/Vol] 95 mg/dL 70 - 100 mg/dL [place] Interpretation and review of laboratory results Abnormal [place] Potassium [Moles/Vol] 3.9 mmol/L 3.5 - 5.1 mmol/L [place] Sodium [Moles/Vol] 140 mmol/L 135 - 145 mmol/L [place] Urea nitrogen [Mass/Vol] 13 mg/dL 7 - 20 mg/d L [place] Test Performed by [facility], [address], [place], [place] [address] [place] CBC Auto Differentialon 08-3 Absolute Baso # 0.1 10*3/uL 0 - 0.2 10*3/uL [place] Absolute Neut # 4.6 10*3/uL 1.8 - 7 10*3/uL [place] Basophils/100 WBC (Bld) 1.1 % 0 - 2 % [place] Eosinophils (Bld) [#/Vol] 0.5 10*3/uL 0 - 0.5 10*3/uL [place] Eosinophils/100 WBC (Bld) 6.6 % High 1 - 6 % [place] Erythrocyte distribution width (RBC) [Ratio] 16.4 % High 11.5 - 14.5 % [place] Granulocytes/100 WBC (Bld) 60.9 % 40 - 80 % [place] Hematocrit (Bld) [Volume fraction] 32.0 % Low 35 - 47 % [place] Hemoglobin (Bld) [Mass/Vol] 10.1 g/dL Low 11.7 - 16 g/dL [place] Interpretation and review of laboratory results Abnormal [place] Lymphocytes (Bld) [#/Vol] 1.7 10*3/uL 1 - 4.3 10*3/uL [place] Lymphocytes/100 WBC (Bld) 22.6 % 20 - 40 % [place] MCH (RBC) [Entitic mass] 27.9 pg 26 - 34 pg [place] MCHC (RBC) [Mass/Vol] 31.5 % Low 32 - 36 % [place] MCV (RBC) [Entitic vol] 88.6 fL 79 - 98 fL [place] Monocytes (Bld) [#/Vol] 0.7 10*3/uL 0 - 0.8 10*3/uL [place] Monocytes/100 WBC (Bld) 8.8 % 2 - 10 % [place] Platelet mean volume (Bld) [Entitic vol] 8.9 fL 7.4 - 10.4 fL [place] Platelets (Bld) [#/Vol] 257 10*3/uL 140 - 440 10*3/uL [place] RBC (Bld) [#/Vol] 3.62 10*6/uL Low 3.8 - 5.2 10*6/uL [place] WBC (Bld) [#/Vol] 7.5 10*3/uL 3.6 - 10.7 10*3/uL [place] Test Performed by [facility], [address] [place] [id number] [place] [address] C. difficile toxin Molecular on 01-29-2020 C. difficile toxin Molecular NEGATIVE Methodology - Real Time PCR ([employer]) Clinical judgement must be used when interpreting results. Positive results may reflect colonization. Indeterminate results suggest a new specimen be submitted. [place] Gastrointestinal Panel by MEI Nunn 01-29-2020 Gastrointestinal PCR Panel NEGATIVE: No targets were detected by the [employer] Gastrointestinal PCR Panel. _ The [employer] Gastrointestinal PCR Panel can detect the following targets: Campylobacter, Plesiomonas shigelloides, Salmonella, Vibrio species, Vibrio cholerae, Yersinia enterocolitica, Shiga toxin-producing E coli (STEC) including E coli O157, Enterotoxigenic E coli (ETEC), Shigella/Enteroinvasi ve E coli (EIEC), Cryptosporidium, Cyclospora cayetanensis, Entamoeba histolytica, Giardia lamblia, Adenovirus F 40/41, Astrovirus, Norovirus GI/GII, Rotavirus A, Sapovirus [place] Otheron 01-29-2020 Test Performed by [facility], [address] [place] [address] Specimen Source Comment:[place], [place] XR Knee Bilateral Standardon 01-29-2020 Patient Name: CHARLIE NGUYEN ---Diagnostic Radiology--- Exam Date/Time 01/29/2020 14:05:00 EDT Exam CR Knee 3 Views Bilateral Ordering Physician KILEY PARKINSON Accession Number [id number] CPT4 Codes 76349 () Reason For Exam fall, knee pain [...] KEVIN Transcribed Date and Time: 01/29/2020 3:27 [place], [facility] Incoming Radiology Results From [facility] - 01/29/2020 3:27 PM EDT Patient Name: CHARLIE NGUYEN ---Diagnostic Radiology--- Exam Date/Time 01/29/2020 14:05:00 EDT Exam CR Knee 3 Views Bilateral Ordering Physician KILEY PARKINSON Accession Number [id number] CPT4 Codes 50961 () Reason For Exam fall, knee pain [...] KEVIN Transcribed Date and Time: 01/29/2020 3:27 [place] Add On Lab Teston 01-28-2020 Sodium [Moles/Vol] Rejected [place] Test Performed by [facility], [address] [place] [address] Str. [place], [place] [id number] [place] [address] CBC auto differentialon 12-31 Erythrocyte distribution width (RBC) [Ratio] 16.2 % High 11.5 - 14.5 % [place] Hematocrit (Bld) [Volume fraction] 37.0 % 35 - 47 % [place] Hemoglobin (Bld) [Mass/Vol] 11.8 g/dL 11.7 - 16 g/dL [place] Interpretation and review of laboratory results Abnormal [place] MCH (RBC) [Entitic mass] 28.0 pg 26 - 34 pg [place] MCHC (RBC) [Mass/Vol] 31.8 % Low 32 - 36 % [place] MCV (RBC) [Entitic vol] 88.1 fL 79 - 98 fL [place] Platelet mean volume (Bld) [Entitic vol] 8.5 fL 7.4 - 10.4 fL [place] Platelets (Bld) [#/Vol] 280 10*3/uL 140 - 440 10*3/uL [place] RBC (Bld) [#/Vol] 4.20 10*6/uL 3.8 - 5.2 10*6/uL [place] WBC (Bld) [#/Vol] 9.1 10*3/uL 3.6 - 10.7 10*3/uL [place] Test Performed by [facility] [employer] [facility], [address], [place], [place] [address] [place] Comprehensive Metabolic Pane l w/ Reflex to MGon 01-28-2020 Albumin [Mass/Vol] 3.4 g/dL Low 3.5 - 5 g/dL [place] ALP [Catalytic activity/Vol] 98 U/L 38 - 126 U/L [place] ALT [Catalytic activity/Vol] 13 U/L 0 - 34 U/L [place] Comment on above: The ALT test is perf ormed by an updated assay method. Please note that the reference intervals have been changed and are now sex specific. Anion gap [Moles/Vol] 6 mmol/L [place] AST [Catalytic activity/Vol] 26 U/L 15 - 46 U/L [place] Bilirubin Ql (U) 0.3 mg/dL 0.2 - 1.3 mg/dL [place] Calcium [Mass/Vol] 8.0 mg/dL Low 8.4 - 10. 4 mg/dL [place] Chloride [Moles/Vol] 102 mmol/L 98 - 10 7 mmol/L [place] CO2 [Moles/Vol] 30 mmol/L 22 - 30 mmol/L [place] Creatinine [Mass/Vol] 0.46 mg/dL Low 0.52 - 1.25 mg/dL [place] EGFR IF NonAfrican Ecuadorean >90.0 >60 mL/min [place] Comment on above: KDIGO guidelines pro [...] MDRD (S/P/Bld) [Vol rate/Area] mL/min/{1.73_m2} >60 mL/min [place] Glucose [Mass/Vol] 91 mg/dL 70 - 100 mg/dL [place] Interpretation and review of laboratory results Abnormal [place] Potassium [Moles/Vol] 3.2 mmol/L Low 3.5 - 5.1 mmol/L [place] Protein [Mass/Vol] 7.1 g/dL 6.3 - 8.2 g/dL [place] Sodium [Moles/Vol] 138 mmol/L 135 - 145 mmol/L [place] Urea nitrogen [Mass/Vol] 20 mg/dL 7 - 20 mg/d L [place] Test Performed by [employer] [facility], [address] [place] [id number] [place] [address] EKG 12 Lead - Chest Painon 0 01-28-2020 [facility] [facility] Test Date: 2020-01-27 Pat Name: Charlie Nguyen Department: 01 Room: 260 Gender: F Price Checker: GISELLE : 1955 Requested By: LEW JOHNSON Order Number: [id number] Reading MD: Sulaiman Jc Measurements Intervals [place] Rate: 53 P: FL: QRS: -4 QRSD: 106 T: 244 QT: 476 QTc: 447 Interpretive Statements SINUS BRADYCARDIA BORDERLINE INTRAVENTRICULAR CONDUCTION DELAY BORDERLINE REPOLARIZATION ABNORMALITY Electronically Signed On 01-28-2020 13:03:43 EDT by Sulaiman Jc [facility] [place], [facility] Incoming Cardiology Results From [facility] - 01/28/2020 1:04 PM EDT [employer] [facility] Test Date: 2020-01-27 Pat Name: Charlie Nguyen Department: Jack Room: 260 Gender: F Price Checker: GISELLE : 1955 Requested By: LEW JOHNSON Order Number: [id number] Reading MD: Sulaiman Jc Measurements Intervals [place] Rate: 53 P: FL: QRS: -4 QRSD: 106 T: 244 QT: 476 QTc: 447 Interpretive Statements SINUS BRADYCARDIA BORDERLINE INTRAVENTRICULAR CONDUCTION DELAY BORDERLINE REPOLARIZATION ABNORMALITY Electronically Signed On 01-28-2020 13:03:43 EDT by Sulaiman Jc [facility], [place] Magnesiumon 01-28-2020 Magnesium [Mass/Vol] 1.7 mg/dL 1.6 - 2 .3 mg/dL [facility] Test Performed by [employer] [facility], [address] [place], [place] [address] [facility], [place] Manual Differentialon 2019 Absolute Baso # 0.0 10*3/uL 0 - 0.2 10*3/uL [facility], [place] Absolute Eos # 0.1 10*3/uL 0 - 0.5 10*3/uL [facility], [place] Absolute Lymph # 1.4 10*3/uL 1.1 - 4.5 10*3/uL [facility] Absolute [place]rowers # 0.5 10*3/uL 0.2 - 1.1 10*3/uL [facility], [place] Absolute Neut # 7.1 10*3/uL 2.2 - 8.2 10*3/uL [facility] Anisocytosis Ql (Bld) Slight [facility] Bands 0 % 0 - 3 % [facility] [place] Basophils 0 % 0 - 2 % [facility] [place] Eosinophils 1 % 1 - 6 % [facility] [place] Hypochromia Slight [facility] Interpretation and review of laboratory results Abnormal [facility], [place] Lymphocytes 15 % Low 20 - 40 % [facility] [employer] [place], [place] Monocytes 6 % 2 - 10 % [place] Poikilocytes Slight [place] Polychromasia Slight [place] RBC morphology finding Nom (Bld) ABNORMAL [place] Seg Neutrophils 78 % 40 - 80 % [place] TOTAL CELLS COUNTED 100 [place] TOXIC VACUOLES Slight [place] Test Performed by [employer] [facility], [address], [place], [place] [address] [place] ACETAMINOPHEN LEVELon 2019 Acetaminophen [Mass/Vol] <10.0 10 - 30 ug/mL [place] CBC Auto Differentialon 12-31 Absolute Baso # 0.2 10*3/uL 0 - 0.2 10*3/uL [place] Absolute Neut # 7.0 10*3/uL 1.8 - 7 10*3/uL [place] Basophils/100 WBC (Bld) 1.4 % 0 - 2 % [place] Eosinophils (Bld) [#/Vol] 0.4 10*3/uL 0 - 0.5 10*3/uL [place] Eosinophils/100 WBC (Bld) 3.5 % 1 - 6 % [place] Erythrocyte distribution width (RBC) [Ratio] 16.2 % High 11.5 - 14.5 % [place] Granulocytes/100 WBC (Bld) 67.4 % 40 - 80 % [place] Hematocrit (Bld) [Volume fraction] 38.0 % 35 - 47 % [place] Hemoglobin (Bld) [Mass/Vol] 12.2 g/dL 11.7 - 16 g/dL [place] Lymphocytes (Bld) [#/Vol] 2.2 10*3/uL 1 - 4.3 10*3/uL [place] Lymphocytes/100 WBC (Bld) 21.4 % 20 - 40 % [place] MCH (RBC) [Entitic mass] 27.8 pg 26 - 34 pg [place] MCHC (RBC) [Mass/Vol] 32.0 % 32 - 36 % [facility] [place] MCV (RBC) [Entitic vol] 86.7 fL 79 - 98 fL [place], [place] Monocytes (Bld) [#/Vol] 0.7 10*3/uL 0 - 0.8 10*3/uL [place] Monocytes/100 WBC (Bld) 6.3 % 2 - 10 % [place] Platelet mean volume (Bld) [Entitic vol] 8.4 fL 7.4 - 10.4 fL [place] Platelets (Bld) [#/Vol] 318 10*3/uL 140 - 440 10*3/uL [place] RBC (Bld) [#/Vol] 4.38 10*6/uL 3.8 - 5.2 10*6/uL [place] WBC (Bld) [#/Vol] 10.5 10*3/uL 3.6 - 10.7 10*3/uL [place] CKon 01-27-2020 Total CK 31 U/L 30 - 170 U/L [place], [place] CT Head WO Contraston 2019 Patient Name: CHARLIE NGUYEN ---CT--- Exam Date/Time 01/27/2020 17:32:[address] Head or Brain w/o Contrast Ordering Physician BENJAMIN JOHNSON DANIEL M Accession Number [id number] CPT4 Codes 05384 () Reason For Exam weakness, found on [...] WENDELL Transcribed Date and Time: 01/27/2020 5:41 [place], [place] [place], [place] Incoming Radiology Results From [facility] - 01/27/2020 5:41 PM EDT Patient Name: CHARLIE NGUYEN ---CT--- Exam Date/Time 01/27/2020 17:32:[address] Head or Brain w/o Contrast Ordering Physician BENJAMIN JOHNSON DANIEL M Accession Number [id number] CPT4 Codes 88098 () Reason For Exam weakness, found on [...] WENDELL Transcribed Date and Time: 01/27/2020 5:41 [place], [place] Comprehensive Metabolic Pane rafiq 01-27-2020 Albumin [Mass/Vol] 3.5 g/dL 3.5 - 5 g/dL [place] ALP [Catalytic activity/Vol] 102 U/L 38 - 126 U/L [place] ALT [Catalytic activity/Vol] 14 U/L 0 - 34 U/L [place] Comment on above: The ALT test is perf ormed by an updated assay method. Please note that the reference intervals have been changed and are now sex specific. Anion gap [Moles/Vol] 6 mmol/L [place], [place] AST [Catalytic activity/Vol] 26 U/L 15 - 46 U/L [place] Bilirubin Ql (U) 0.4 mg/dL 0.2 - 1.3 mg/dL [place] Calcium [Mass/Vol] 8.5 mg/dL 8.4 - 10. 4 mg/dL [facility], [place] Chloride [Moles/Vol] 98 mmol/L 98 - 10 7 mmol/L [facility] CO2 [Moles/Vol] 35 mmol/L High 22 - 30 mmol/L [facility] Creatinine [Mass/Vol] 0.61 mg/dL 0.52 - 1.25 mg/dL [place] EGFR IF NonAfrican [place]adorean >90.0 >60 mL/min [place], [place] Comment on above: KDIGO guidelines pro [...] MDRD (S/P/Bld) [Vol rate/Area] mL/min/{1.73_m2} >60 mL/min [facility] Glucose [Mass/Vol] 100 mg/dL 70 - 100 mg/dL [facility] Potassium [Moles/Vol] 2.6 mmol/L Critically low 3.5 - 5.1 mmol/L [facility] Protein [Mass/Vol] 7.3 g/dL 6.3 - 8.2 g/dL [facility] Sodium [Moles/Vol] 140 mmol/L 135 - 145 mmol/L [facility] Urea nitrogen [Mass/Vol] 26 mg/dL High 7 - 20 mg/d L [facility] Test Performed by [facility], [address] [facility] [place], [place] Magnesiumon 01-27-2020 Magnesium [Mass/Vol] 1.8 mg/dL 1.6 - 2 .3 mg/dL [place], [place] Otheron 01-27-2020 Interpretation and review of laboratory results Abnormal [place] Test Performed by [facility], [address], [address] Test Performed by [facility], [address], [address] Salicylateon 01-27-2020 Salicylate Lvl <1.0 0 - 20 mg/dL [place] Troponinon 01-27-2020 Troponin I.cardiac [Mass/Vol] ng/mL 0 - 0.034 ng/mL [place], [place] Comment on above: . Test Performed by [facility], [address] Urinalysison 01-27-2020 AMORPHOUS CRYSTAL Few Abnormal Negative /[HPF] [place] Comment on above: . Appearance (U) Ex.Turbid Abnormal Clear NA [place] Comment on above: . Bacteria, UA Few Abnormal Negative /[HPF] [place] Comment on above: . Bilirubin Urine Negative Negative mg/dL [place] Comment on above: . Color (U) Yellow Lt. Yellow NA [place] Comment on above: . Glucose, Ur Normal Normal (<70) mg/dL [place] Comment on above: . Interpretation and review of laboratory results Abnormal [place] Ketones Ql (U) 10 mg/dL Abnormal Negative [place] Comment on above: . LEUKOCYTES, UA 500 Abnormal Negative Simon/uL [place] Comment on above: . Nitrite, Urine Negative Negative NA [place] Comment on above: . Non-Squamous Epithelial 2 /[HPF] Abnormal Negative [place], [place] Comment on above: . Occult Blood,Urine 0.2 mg/dL Abnormal Negative [place] Comment on above: . pH (U) 6.5 [pH] [place], [place] Comment on above: . Protein (U) [Mass/Vol] 70 mg/dL Abnormal Negative [place], [place] Comment on above: . RBC (U) [#/Vol] 11-25 Abnormal 0 - 2 /[HPF] [place], [place] Comment on above: . Specific [place], Urine 1.025 M [place], [place] Comment on above: . Urobilinogen, Urine Normal Normal ( 0-1) mg/dL [place], [place] Comment on above: . WBC Clumps, Urine Moderate Abnormal Negative /[HPF] [place], [place] Comment on above: . WBC, UA >100 Abnormal 0 - 5 /[HPF] [place] Comment on above: . Test Performed by [facility], [address], [place], [place] [address] [place] Urine Drug Screenon 01-27-20 20 Amphetamines, urine Negative [place], [place] Barbiturates, Ur Negative [place] Benzodiazepine Ur Qual Positive [place], [place] Cocaine Metabolites, Ur Negative [place], [place] Methadone, Urine Negative [place] Opiates, Urine Negative [place] Oxycodone Screen, Ur Negative [place] PCP, Urine Negative [place] Comment on above: The expected value [...] confirmation under separate order. Test Performed by [facility], [address], [place], [place] [address] [place] XR CHEST PORTABLEon 01-27-20 20 [place], [facility] Incoming Radiology [facility] - 01/27/2020 6:12 PM EDT Patient Name: CHARLIE NGUYEN ---Diagnostic Radiology--- Exam Date/Time 01/27/2020 17:38:59 EDT Exam CR Chest Portable Ordering Physician BENJAMIN JOHNSON DANIEL M Accession Number [id number] CPT4 Codes 94613 () Reason For Exam weakness, cough Report [...] WENDELL Transcribed Date and Time: 01/27/2020 6:12 [place] Patient Name: CHARLIE NGUYEN ---Diagnostic Radiology--- Exam Date/Time 01/27/2020 17:38:59 EDT Exam CR Chest Portable Ordering Physician BENJAMIN JOHNSON DANIEL M Accession Number [id number] CPT4 Codes 97950 () Reason For Exam weakness, cough Report [...] WENDELL Transcribed Date and Time: 01/27/2020 6:12 [facility], [place] Sed Rateon 12-06-2019 Sed Rate 35 mm/hr High 0-20 [facility] Comment on above: Performed By: #### E SR #### [facility] [address] [place] [address] CRPon 12-05-2019 CRP [Mass/Vol] 2.4 mg/dL High 0.0-0.8 [facility] Comment on above: Performed By: #### C RP3 #### [facility] [address] [place] [address] Comprehensive Metabolic Pane rafiq 12-05-2019 Albumin [Mass/Vol] 3.5 g/dL Low 3.9-4.9 [facility] Comment on above: Performed By: #### C MP #### [facility] [address] [place] [address] ALP [Catalytic activity/Vol] 75 U/L Normal 34-123 [facility] Comment on above: Performed By: #### C MP #### [facility] [address] [place] [address] ALT [Catalytic activity/Vol] U/L Low 7-38 [facility] Comment on above: Performed By: #### C MP #### [facility] [address] [place], [place] [address] Anion gap [Moles/Vol] 10 mmol/L Normal 9-18 [facility] Comment on above: Performed By: #### C MP #### [facility] [address] [place] [address] AST [Catalytic activity/Vol] 16 U/L Normal 13-35 [facility] Comment on above: Performed By: #### C MP #### [facility] [address] [place], [place] [address] Bilirubin [Mass/Vol] 0.2 mg/dL Normal 0.2-1.3 [facility] Comment on above: Performed By: #### C MP #### [facility] [address] [place] [address] Calcium [Mass/Vol] 8.6 mg/dL Normal 8.5-10.2 [facility] Comment on above: Performed By: #### C MP #### [facility] [address] [place], [place] [address] Chloride [Moles/Vol] 98 mmol/L Normal 97-105 [facility] Comment on above: Performed By: #### C MP #### [facility] [address] [place], [place] [address] CO2 Blood 27 mmol/L Normal 22-30 [facility] Comment on above: Performed By: #### C MP #### [facility] [address] [place], [place] [address] Creatinine [Mass/Vol] 0.45 mg/dL Low 0.58-0.96 [facility] Comment on above: Performed By: #### C MP #### [facility] [address] [place], [place] [address] Glucose [Mass/Vol] 79 mg/dL Normal 74-99 [facility] Comment on above: Result Comment: The [place] Diabetes Association (ADA) provides guidance for cutoff [...] Standards of Medical Care in Diabetes 2016; [place] Diabetes Association. Diabetes Care. 2016;39(Suppl 1). Performed By: #### C MP #### [facility] [address] [place], [place] [address] Potassium [Moles/Vol] 4.0 mmol/L Normal 3.7-5.1 [facility] Comment on above: Performed By: #### C MP #### [facility] [address] [place], [place] [address] Protein [Mass/Vol] 7.1 g/dL Normal 6.3-8.0 [facility] Comment on above: Performed By: #### C MP #### [facility] [address] [place] [address] Sodium [Moles/Vol] 135 mmol/L Low 136-144 [facility] Comment on above: Performed By: #### C MP #### [facility] [address] [place] [address] Urea nitrogen [Mass/Vol] 12 mg/dL Normal 7-21 [facility] Comment on above: Performed By: #### C MP #### [facility] [address] [place] [address] Hemogram/Diffon 12-05-2019 Abs Immature Grans 0.03 thou/cmm Normal 0.00-0.05 [facility] Comment on above: Performed By: #### C BCD1 #### [facility] [address] [place] [address] Abs Neut (ANC) 5.08 thou/cmm Normal 1.56-6.13 [facility] Comment on above: Performed By: #### C BCD1 #### [facility] [address] [place] [address] Abs. Baso 0.07 thou/cmm Normal 0.01-0.08 [facility] Comment on above: Performed By: #### C BCD1 #### [facility] [address] [place] [address] Abs. [place] 0.74 thou/cmm High 0.27-0.70 [facility] Comment on above: Performed By: #### C BCD1 #### [facility] [address] [place] [address] Basophils/100 WBC (Bld) 0.8 % Normal [facility] Comment on above: Performed By: #### C BCD1 #### [facility] [address] [place] [address] Eosinophils (Bld) [#/Vol] 0.57 thou/cmm High 0.00-0.31 [facility] Comment on above: Performed By: #### C BCD1 #### [place] [address] Eosinophils/100 WBC (Bld) 6.6 % Normal [facility] Comment on above: Performed By: #### C BCD1 #### [facility] [address] [place] [address] Erythrocyte distribution width (RBC) [Ratio] 15.0 % High 11.7-14.4 [facility] Comment on above: Performed By: #### C BCD1 #### [facility] [address] [place] [address] Hematocrit (Bld) [Volume fraction] 34.9 % Normal 34.1-44.9 [facility] Comment on above: Performed By: #### C BCD1 #### [place] [address] Hemoglobin (Bld) [Mass/Vol] 10.8 g/dL Low 11.2-15.7 [facility] Comment on above: Performed By: #### C BCD1 #### [place] [address] Immature Grans 0.30 % Normal [facility] Comment on above: Performed By: #### C BCD1 #### [place] [address] Lymphocytes (Bld) [#/Vol] 2.20 thou/cmm Normal 1.18-3.74 [facility] Comment on above: Performed By: #### C BCD1 #### [place] [address] Lymphocytes/100 WBC (Bld) 25.3 % Normal [facility] Comment on above: Performed By: #### C BCD1 #### [facility] [address] [place] [address] MCH (RBC) [Entitic mass] 29.8 pg Normal 25.6-32.2 [facility] Comment on above: Performed By: #### C BCD1 #### [facility] [address] [place] [address] MCHC (RBC) [Mass/Vol] 30.9 % Low 31.6-34.8 [facility] Comment on above: Performed By: #### C BCD1 #### [address] [place], [place] [address] MCV (RBC) [Entitic vol] 96.1 fL High 79.4-94.8 [facility] Comment on above: Performed By: #### C BCD1 #### [facility] [address] [place] [address] Monocytes/100 WBC (Bld) 8.5 % Normal [facility] Comment on above: Performed By: #### C BCD1 #### [facility] [address] [place] [address] Platelet mean volume (Bld) [Entitic vol] 10.3 fL Normal 9.4-12.3 [facility] Comment on above: Performed By: #### C BCD1 #### [facility] [address] [place] [address] Platelets (Bld) [#/Vol] 428 thou/cmm High 182-369 [facility] Comment on above: Performed By: #### C BCD1 #### [place] [address] RBC (Bld) [#/Vol] 3.63 mil/cmm Low 3.93-5.22 [facility] Comment on above: Performed By: #### C BCD1 #### [facility] [address] [place] [address] RDW SD 53.2 fl High 36.4-46.3 [facility] Comment on above: Performed By: #### C BCD1 #### [facility] [address] [place] [address] Seg Neutrophil 58.5 % Normal [facility] Comment on above: Performed By: #### C BCD1 #### [facility] [address] [place] [address] WBC (Bld) [#/Vol] 8.69 thou/cmm Normal 3.98-10.04 [facility] Comment on above: Performed By: #### C BCD1 #### [facility] [address] [place] [address] MDRD GFRon 12-05-2019 GFR/1.73 sq M predicted among non-blacks MDRD (S/P/Bld) [Vol rate/Area] mL/min/{1.73_m2} Normal >60mL/min/1. 73m2 [facility] Comment on above: Result Comment: If t he patient is , multiply the result by 1.210. Performed By: #### G FR #### [facility] [address] [place], [place] [address] Add On Lab Teston 11-04-2019 Sodium [Moles/Vol] Accepted [place], [place] Comment on above: Specimen available & acceptable for analysis. Test Performed by [facility], [address] [place] [address] [place] Basic Metabolic Panelon Anion gap [Moles/Vol] 8 mmol/L [place] Calcium [Mass/Vol] 9.1 mg/dL 8.4 - 10. 4 mg/dL [place] Chloride [Moles/Vol] 96 mmol/L Low 98 - 10 7 mmol/L [place] CO2 [Moles/Vol] 32 mmol/L High 22 - 30 mmol/L [place] Creatinine [Mass/Vol] 0.6 mg/dL 0.52 - 1.25 mg/dL [place] EGFR IF NonAfrican [place]orean >90.0 >60 mL/min [place] Comment on above: KDIGO guidelines pro [...] MDRD (S/P/Bld) [Vol rate/Area] mL/min/{1.73_m2} >60 mL/min [place] Glucose [Mass/Vol] 133 mg/dL High 70 - 100 mg/dL [place] Potassium [Moles/Vol] 3.4 mmol/L Low 3.5 - 5.1 mmol/L [place] Sodium [Moles/Vol] 137 mmol/L 135 - 145 mmol/L [place] Urea nitrogen [Mass/Vol] 22 mg/dL High 7 - 20 mg/d L [place] Body Fluid Cell Count with D ifferentialon 11-04-2019 Nucl Cell, Fluid [address] {cells}/uL [place] Sodium [Moles/Vol] SYNOVIAL [place] Test Performed by [address] [address] [place] Body Fluid Crystalon 020 Crystals LM Nom (Urine sed) Negative [place] Sodium [Moles/Vol] Synovial [place] Test Performed by [facility], [facility] [place] [address] [place] C-Reactive Proteinon 020 CRP [Mass/Vol] 41.4 mg/L High 0 - 6 mg/L [place] Comment on above: . Differential, Body Fluidon 0 11-04-2019 Eosinophils/100 WBC (Bld) 0 % [place] Comment on above: CORRECTED RESULT...P revious above value was 6, verified on 11/04/19 at 16:51 by [email or web address] . Lymphocytes/100 WBC (Bld) 1 % [place] Comment on above: CORRECTED RESULT...P revious above value was 4, verified on 11/04/19 at 16:51 by [email or web address] . Macrophage count 3 % [place], [place] Comment on above: CORRECTED RESULT...P revious above value was 2, verified on 11/04/19 at 16:51 by [email or web address] . Neutrophils/100 WBC (Bld) 96 % [place] Comment on above: CORRECTED RESULT...P revious above value was 87, verified on 11/04/19 at 16:51 by [email or web address] . Other Cells, Fluid 0 % [place] Comment on above: all other cells are synovial lining cells CORRECTED RESULT...Previous above value was 1, verified on 11/04/19 at 16:52 by [email or web address] . Sodium [Moles/Vol] 100 mmol/L [place] Test Performed by [employer] [place] [address] [place] [address] [place] GRAM STAINon 11-04-2019 INR Coag (Bld) [Relative time] Many polymorphonuclear cells/lpf. No organisms seen. [place] Test Performed by [employer] [place] [address] [place] [address] Specimen Source Comment:Leg [place], [place] Hemogram (CBC) w/Auto Diffon 11-04-2019 Absolute Baso # 0.0 10*3/uL 0 - 0.2 10*3/uL [place] Absolute Neut # 5.8 10*3/uL 1.8 - 7 10*3/uL [place] Basophils/100 WBC (Bld) 0.4 % 0 - 2 % [place] Eosinophils (Bld) [#/Vol] 0.2 10*3/uL 0 - 0.5 10*3/uL [place] Eosinophils/100 WBC (Bld) 2.8 % 1 - 6 % [place] Erythrocyte distribution width (RBC) [Ratio] 15.6 % High 11.5 - 14.5 % [place] Granulocytes/100 WBC (Bld) 71.8 % 40 - 80 % [place] Hematocrit (Bld) [Volume fraction] 33.7 % Low 35 - 47 % [place] Hemoglobin (Bld) [Mass/Vol] 11.4 g/dL Low 11.7 - 16 g/dL [place] Interpretation and review of laboratory results Abnormal [place] Lymphocytes (Bld) [#/Vol] 1.3 10*3/uL 1 - 4.3 10*3/uL [place] Lymphocytes/100 WBC (Bld) 16.4 % Low 20 - 40 % [place] MCH (RBC) [Entitic mass] 31.9 pg 26 - 34 pg [place] MCHC (RBC) [Mass/Vol] 33.7 % 32 - 36 % [place] MCV (RBC) [Entitic vol] 94.5 fL 79 - 98 fL [place], [place] Monocytes (Bld) [#/Vol] 0.7 10*3/uL 0 - 0.8 10*3/uL [place] Monocytes/100 WBC (Bld) 8.6 % 2 - 10 % [place] Platelet mean volume (Bld) [Entitic vol] 7.8 fL 7.4 - 10.4 fL [place] Platelets (Bld) [#/Vol] 440 10*3/uL 140 - 440 10*3/uL [place] RBC (Bld) [#/Vol] 3.57 10*6/uL Low 3.8 - 5.2 10*6/uL [place] WBC (Bld) [#/Vol] 8.1 10*3/uL 3.6 - 10.7 10*3/uL [place] Test Performed by [facility], [address] [place] [address] [place] Metabolic Panelon 11-04-2019 Sodium [Moles/Vol] Negative [place] Otheron 11-04-2019 Interpretation and review of laboratory results Abnormal [place] Test Performed by [facility], [address] [place] [address] [place] Protime-INRon 11-04-2019 INR Coag (PPP) [Relative time] 1.0 {INR} [place] Comment on above: Recommended Anticoag ulant [...] [Time] 11.1 s 9 - 12 s [place] Comment on above: . Test Performed by [employer] [facility], [facility] [place], [place] [address] [place] [address] Sedimentation Rateon 020 Sed Rate 96 mm/h High 0 - 20 mm/h [place] TYPE AND SCREENon 11-04-2019 Sodium [Moles/Vol] AB [place] Test Performed by [employer] [facility], [facility] [place] [address] [place] XR CHEST PORTABLEon 11-04-19 20 [place], [facility] Incoming Radiology Results From [facility] - 11/04/2019 7:34 PM EDT Patient Name: CHARLIE NGUYEN ---Diagnostic Radiology--- Exam Date/Time 11/04/2019 19:28:19 EDT Exam CR Chest Portable Ordering Physician DO BOWLES DORSEY R Accession Number [id number] CPT4 Codes 87613 () Reason For Exam pre-op Report Portable [...] BRIAN Transcribed Date and Time: 11/04/2019 7:32 [place] Patient Name: CHARLIE NGUYEN ---Diagnostic Radiology--- Exam Date/Time 11/04/2019 19:28:19 EDT Exam CR Chest Portable Ordering Physician DO BOWLES DORSEY R Accession Number [id number] CPT4 Codes 98002 () Reason For Exam pre-op Report Portable [...] BRIAN Transcribed Date and Time: 11/04/2019 7:32 [place] XR KNEE RIGHT (3 VIEWS)on [place], [facility] Incoming Radiology Results From [facility] - 11/04/2019 2:47 PM EDT Patient Name: CHARLIE NGUYEN ---Diagnostic Radiology--- Exam Date/Time 11/04/2019 14:47:22 EDT Exam CR Knee 3 Views Right Ordering Physician DAVID FARRELL Accession Number [id number] CPT4 Codes 59234 () Reason For Exam right knee pain [...] RISA Transcribed Date and Time: 11/04/2019 2:14 [place] Patient Name: CHARLIE NGUYEN ---Diagnostic Radiology--- Exam Date/Time 11/04/2019 14:47:22 EDT Exam CR Knee 3 Views Right Ordering Physician DAVID FARRELL Accession Number [id number] CPT4 Codes 15175 () Reason For Exam right knee pain [...] RISA Transcribed Date and Time: 11/04/2019 2:14 [place] Basic Metabolic Panelon 09-30 Anion gap [Moles/Vol] 10 mmol/L [place] Calcium [Mass/Vol] 9.0 mg/dL 8.4 - 10. 4 mg/dL [place] Chloride [Moles/Vol] 93 mmol/L Low 98 - 10 7 mmol/L [place] CO2 [Moles/Vol] 36 mmol/L High 22 - 30 mmol/L [place] Creatinine [Mass/Vol] 0.63 mg/dL 0.52 - 1.25 mg/dL [place] EGFR IF NonAfrican [place] >90.0 >60 mL/min [place] Comment on above: KDIGO guidelines pro [...] MDRD (S/P/Bld) [Vol rate/Area] mL/min/{1.73_m2} >60 mL/min [place] Glucose [Mass/Vol] 115 mg/dL High 70 - 100 mg/dL [place] Potassium [Moles/Vol] 3.7 mmol/L 3.5 - 5.1 mmol/L [place] Sodium [Moles/Vol] 139 mmol/L 135 - 145 mmol/L [place] Urea nitrogen [Mass/Vol] 30 mg/dL High 7 - 20 mg/d L [place] CBC Auto Differentialon 05-2 Absolute Baso # 0.1 10*3/uL 0 - 0.2 10*3/uL [place] Absolute Neut # 5.8 10*3/uL 1.8 - 7 10*3/uL [place] Basophils/100 WBC (Bld) 0.9 % 0 - 2 % [place] Eosinophils (Bld) [#/Vol] 0.3 10*3/uL 0 - 0.5 10*3/uL [place] Eosinophils/100 WBC (Bld) 3.4 % 1 - 6 % [place] Erythrocyte distribution width (RBC) [Ratio] 15.5 % High 11.5 - 14.5 % [place] Granulocytes/100 WBC (Bld) 67.2 % 40 - 80 % [place] Hematocrit (Bld) [Volume fraction] 38.5 % 35 - 47 % [place] Hemoglobin (Bld) [Mass/Vol] 12.3 g/dL 11.7 - 16 g/dL [place] Interpretation and review of laboratory results Abnormal [place] Lymphocytes (Bld) [#/Vol] 1.5 10*3/uL 1 - 4.3 10*3/uL [place] Lymphocytes/100 WBC (Bld) 17.8 % Low 20 - 40 % [place] MCH (RBC) [Entitic mass] 30.7 pg 26 - 34 pg [place] MCHC (RBC) [Mass/Vol] 32.0 % 32 - 36 % [place] MCV (RBC) [Entitic vol] 96.0 fL 79 - 98 fL [place], [place] Monocytes (Bld) [#/Vol] 0.9 10*3/uL High 0 - 0.8 10*3/uL [place] Monocytes/100 WBC (Bld) 10.7 % High 2 - 10 % [place] Platelet mean volume (Bld) [Entitic vol] 7.8 fL 7.4 - 10.4 fL [place] Platelets (Bld) [#/Vol] 333 10*3/uL 140 - 440 10*3/uL [place] RBC (Bld) [#/Vol] 4.01 10*6/uL 3.8 - 5.2 10*6/uL [place] WBC (Bld) [#/Vol] 8.7 10*3/uL 3.6 - 10.7 10*3/uL [place] Test Performed by [employer] [facility], [address] [place], [place] [address] [place], [place] Calcium, Ionizedon 0 Interpretation and review of laboratory results Abnormal [place] Ionized Ca 4.30 mg/dL 4.3 - 5.2 mg/dL [place] pH (Bld) 7.47 [pH] High [place] Test Performed by [facility], [address] [place], [place] [address] [place] Hepatic Function Panelon Albumin [Mass/Vol] 3.8 g/dL 3.5 - 5 g/dL [place] ALP [Catalytic activity/Vol] 107 U/L 38 - 126 U/L [place] ALT [Catalytic activity/Vol] 67 U/L High 0 - 34 U/L [place] Comment on above: The ALT test is perf ormed by an updated assay method. Please note that the reference intervals have been changed and are now sex specific. AST [Catalytic activity/Vol] 51 U/L High 15 - 46 U/L [place] Bilirubin Ql (U) 0.6 mg/dL 0.2 - 1.3 mg/dL [place] Bilirubin.direct [Mass/Vol] 0.0 mg/dL 0 - 0.3 mg/dL [place] Protein [Mass/Vol] 8.2 g/dL 6.3 - 8.2 g/dL [place] MAGNESIUMon 10-25-2019 Magnesium [Mass/Vol] 1.8 mg/dL 1.6 - 2 .3 mg/dL [place] Otheron 10-25-2019 Interpretation and review of laboratory results Abnormal [place] Test Performed by [facility], [address], [place], [place] [address] [place] Phosphoruson 10-25-2019 Phosphate [Mass/Vol] 5.3 mg/dL High 2.5 - 4 .5 mg/dL [place] Basic Metabolic Panelon 09-30 Anion gap [Moles/Vol] 9 mmol/L [place] Calcium [Mass/Vol] 8.5 mg/dL 8.4 - 10. 4 mg/dL [place] Chloride [Moles/Vol] 95 mmol/L Low 98 - 10 7 mmol/L [place] CO2 [Moles/Vol] 36 mmol/L High 22 - 30 mmol/L [place] Creatinine [Mass/Vol] 0.48 mg/dL Low 0.52 - 1.25 mg/dL [place] EGFR IF NonAfrican [place] >90.0 >60 mL/min [place] Comment on above: KDIGO guidelines pro [...] MDRD (S/P/Bld) [Vol rate/Area] mL/min/{1.73_m2} >60 mL/min [place] Glucose [Mass/Vol] 113 mg/dL High 70 - 100 mg/dL [place] Potassium [Moles/Vol] 3.6 mmol/L 3.5 - 5.1 mmol/L [place] Sodium [Moles/Vol] 139 mmol/L 135 - 145 mmol/L [place] Urea nitrogen [Mass/Vol] 26 mg/dL High 7 - 20 mg/d L [place] CBC Auto Differentialon 05-2 Absolute Baso # 0.1 10*3/uL 0 - 0.2 10*3/uL [place] Absolute Neut # 6.0 10*3/uL 1.8 - 7 10*3/uL [place] Basophils/100 WBC (Bld) 1.3 % 0 - 2 % [place] Eosinophils (Bld) [#/Vol] 0.3 10*3/uL 0 - 0.5 10*3/uL [place] Eosinophils/100 WBC (Bld) 3.3 % 1 - 6 % [place] Erythrocyte distribution width (RBC) [Ratio] 15.0 % High 11.5 - 14.5 % [place] Granulocytes/100 WBC (Bld) 68.0 % 40 - 80 % [place] Hematocrit (Bld) [Volume fraction] 36.4 % 35 - 47 % [place] Hemoglobin (Bld) [Mass/Vol] 11.9 g/dL 11.7 - 16 g/dL [place] Interpretation and review of laboratory results Abnormal [place] Lymphocytes (Bld) [#/Vol] 1.6 10*3/uL 1 - 4.3 10*3/uL [place] Lymphocytes/100 WBC (Bld) 17.8 % Low 20 - 40 % [place] MCH (RBC) [Entitic mass] 31.4 pg 26 - 34 pg [place] MCHC (RBC) [Mass/Vol] 32.7 % 32 - 36 % [place] MCV (RBC) [Entitic vol] 96.0 fL 79 - 98 fL [place], [place] Monocytes (Bld) [#/Vol] 0.8 10*3/uL 0 - 0.8 10*3/uL [place] Monocytes/100 WBC (Bld) 9.6 % 2 - 10 % [place] Platelet mean volume (Bld) [Entitic vol] 7.6 fL 7.4 - 10.4 fL [place] Platelets (Bld) [#/Vol] 322 10*3/uL 140 - 440 10*3/uL [place] RBC (Bld) [#/Vol] 3.79 10*6/uL Low 3.8 - 5.2 10*6/uL [place] WBC (Bld) [#/Vol] 8.8 10*3/uL 3.6 - 10.7 10*3/uL [place] Test Performed by [facility], [address], [place], [place] [address] [place] Calcium, Ionizedon 0 Interpretation and review of laboratory results Abnormal [place] Ionized Ca 4.30 mg/dL 4.3 - 5.2 mg/dL [place] pH (Bld) 7.47 [pH] High [place] Test Performed by [facility], [address], [place], [place] [address] [place] Hepatic Function Panelon Albumin [Mass/Vol] 3.6 g/dL 3.5 - 5 g/dL [place] ALP [Catalytic activity/Vol] 102 U/L 38 - 126 U/L [place] ALT [Catalytic activity/Vol] 69 U/L High 0 - 34 U/L [place] Comment on above: The ALT test is perf ormed by an updated assay method. Please note that the reference intervals have been changed and are now sex specific. AST [Catalytic activity/Vol] 41 U/L 15 - 46 U/L [place] Bilirubin Ql (U) 0.6 mg/dL 0.2 - 1.3 mg/dL [place] Bilirubin.direct [Mass/Vol] 0.0 mg/dL 0 - 0.3 mg/dL [place] Protein [Mass/Vol] 7.7 g/dL 6.3 - 8.2 g/dL [place] MAGNESIUMon 10-24-2019 Magnesium [Mass/Vol] 2.0 mg/dL 1.6 - 2 .3 mg/dL [place] Otheron 10-24-2019 Interpretation and review of laboratory results Abnormal [place] Test Performed by [facility], [address], [place], [place] [address] [place] Phosphoruson 10-24-2019 Phosphate [Mass/Vol] 4.5 mg/dL 2.5 - 4 .5 mg/dL [place] XR CHEST PORTABLEon 10-24-19 20 [place], [facility] Incoming Radiology Results From [facility] - 10/24/2019 9:09 AM EDT Patient Name: CHARLIE NGUYEN ---Diagnostic Radiology--- Exam Date/Time 10/24/2019 08:53:24 EDT Exam CR Chest Portable Ordering Physician BENJAMIN SOSA JUDITH A. Accession Number [id number] CPT4 Codes 02015 () Reason For Exam respiratory failure Report [...] I Transcribed Date and Time: 10/24/2019 9:08 [place] Patient Name: CHARLIE NGUYEN ---Diagnostic Radiology--- Exam Date/Time 10/24/2019 08:53:24 EDT Exam CR Chest Portable Ordering Physician BENJAMIN SOSA JUDITH A. Accession Number [id number] CPT4 Codes 22645 () Reason For Exam respiratory failure Report [...] I Transcribed Date and Time: 10/24/2019 9:08 [place] Basic Metabolic Panelon 05- Anion gap [Moles/Vol] 12 mmol/L [place] Calcium [Mass/Vol] 8.5 mg/dL 8.4 - 10. 4 mg/dL [place] Chloride [Moles/Vol] 97 mmol/L Low 98 - 10 7 mmol/L [place] CO2 [Moles/Vol] 35 mmol/L High 22 - 30 mmol/L [place] Creatinine [Mass/Vol] 0.53 mg/dL 0.52 - 1.25 mg/dL [place] EGFR IF NonAfrican Ecuadorean >90.0 >60 mL/min [place] Comment on above: KDIGO guidelines pro [...] MDRD (S/P/Bld) [Vol rate/Area] mL/min/{1.73_m2} >60 mL/min [place] Glucose [Mass/Vol] 104 mg/dL High 70 - 100 mg/dL [place] Potassium [Moles/Vol] 3.5 mmol/L 3.5 - 5.1 mmol/L [place] Sodium [Moles/Vol] 144 mmol/L 135 - 145 mmol/L [place] Urea nitrogen [Mass/Vol] 25 mg/dL High 7 - 20 mg/d L [place] CBC Auto Differentialon 09-30 Absolute Baso # 0.1 10*3/uL 0 - 0.2 10*3/uL [place] Absolute Neut # 7.0 10*3/uL 1.8 - 7 10*3/uL [place] Basophils/100 WBC (Bld) 1.0 % 0 - 2 % [place] Eosinophils (Bld) [#/Vol] 0.3 10*3/uL 0 - 0.5 10*3/uL [place] Eosinophils/100 WBC (Bld) 3.2 % 1 - 6 % [place] Erythrocyte distribution width (RBC) [Ratio] 15.1 % High 11.5 - 14.5 % [place] Granulocytes/100 WBC (Bld) 71.8 % 40 - 80 % [place] Hematocrit (Bld) [Volume fraction] 35.4 % 35 - 47 % [place] Hemoglobin (Bld) [Mass/Vol] 11.6 g/dL Low 11.7 - 16 g/dL [place] Interpretation and review of laboratory results Abnormal [place] Lymphocytes (Bld) [#/Vol] 1.5 10*3/uL 1 - 4.3 10*3/uL [place] Lymphocytes/100 WBC (Bld) 15.7 % Low 20 - 40 % [place] MCH (RBC) [Entitic mass] 31.3 pg 26 - 34 pg [place] MCHC (RBC) [Mass/Vol] 32.8 % 32 - 36 % [place] MCV (RBC) [Entitic vol] 95.6 fL 79 - 98 fL [place], [place] Monocytes (Bld) [#/Vol] 0.8 10*3/uL 0 - 0.8 10*3/uL [place] Monocytes/100 WBC (Bld) 8.3 % 2 - 10 % [place] Platelet mean volume (Bld) [Entitic vol] 7.6 fL 7.4 - 10.4 fL [place] Platelets (Bld) [#/Vol] 343 10*3/uL 140 - 440 10*3/uL [place] RBC (Bld) [#/Vol] 3.71 10*6/uL Low 3.8 - 5.2 10*6/uL [place] WBC (Bld) [#/Vol] 9.8 10*3/uL 3.6 - 10.7 10*3/uL [place] Test Performed by [facility], [address] [place], [place] [address] [place] Calcium, Ionizedon 0 Ionized Ca 4.40 mg/dL 4.3 - 5.2 mg/dL [place] pH (Bld) 7.42 [pH] [place] Test Performed by [facility], [address] [place], [place] [address] [place] Hepatic Function Panelon Albumin [Mass/Vol] 3.4 g/dL Low 3.5 - 5 g/dL [place] ALP [Catalytic activity/Vol] 106 U/L 38 - 126 U/L [place] ALT [Catalytic activity/Vol] 84 U/L High 0 - 34 U/L [place] Comment on above: The ALT test is perf ormed by an updated assay method. Please note that the reference intervals have been changed and are now sex specific. AST [Catalytic activity/Vol] 44 U/L 15 - 46 U/L [place] Bilirubin Ql (U) 0.6 mg/dL 0.2 - 1.3 mg/dL [place] Bilirubin.direct [Mass/Vol] 0.0 mg/dL 0 - 0.3 mg/dL [place] Protein [Mass/Vol] 7.6 g/dL 6.3 - 8.2 g/dL [place] MAGNESIUMon 10-23-2019 Magnesium [Mass/Vol] 1.4 mg/dL Low 1.6 - 2 .3 mg/dL [facility] [place] Otheron 10-23-2019 Interpretation and review of laboratory results Abnormal [facility] [place] Test Performed by [facility], [facility] [address] [place], [place] [address] [facility] [place] POCT Arterialon 10-23-2019 Base Excess, Arterial 8.0 mmol/L High -3 - 3 mmol/L [facility] [place] HCO3, Arterial 32.9 mmol/L High 21 - 25 mmol/L [facility] [place] Interpretation and review of laboratory results Abnormal [facility] [place] Oxygen saturation in Blood 96.8 % 95 - 100 % [facility] [place] pCO2, Arterial 45.2 mm[Hg] High 35 - 45 mm[Hg] [facility] [place] pH, Arterial 7.470 High [facility] [place] pO2, Arterial 83.8 mm[Hg] 80 - 100 mm[Hg] [facility] [place] Sodium [Moles/Vol] 40 mmol/L [facility] [place] Comment on above: Performed by CLIA ID : [id number] [place] TCO2, Arterial 34.3 mmol/L High 23 - 27 mmol/L [facility] [place] Test Performed by [facility], [facility] [address] [place], [place] [address] [facility] [place] Base Excess, Arterial cnc Critically abnormal -3 - 3 mmol/L [facility] [place] HCO3, Arterial cnc Critically abnormal 21 - 25 mmol/L [facility] [place] Interpretation and review of laboratory results Abnormal [facility] [place] Oxygen saturation in Blood cnc Critically abnormal 95 - 100 % [facility] [place] pCO2, Arterial 44.8 mm[Hg] 35 - 45 mm[Hg] [facility] [place] pH, Arterial Failed iQC Critically abnormal [facility] [place] pO2, Arterial 80.1 mm[Hg] 80 - 100 mm[Hg] [facility] [place] Sodium [Moles/Vol] 40 mmol/L [facility] [place] Comment on above: Performed by CLIA ID : [id number] [place] TCO2, Arterial cnc Critically abnormal 23 - 27 mmol/L [place] Test Performed by [facility], [address], [place], [place] [address] [place] Phosphoruson 10-23-2019 Phosphate [Mass/Vol] 4.3 mg/dL 2.5 - 4 .5 mg/dL [place] XR CHEST PORTABLEon 10-23-19 20 Patient Name: CHARLIE NGUYEN ---Diagnostic Radiology--- Exam Date/Time 10/23/2019 06:36:40 EDT Exam CR Chest Portable Ordering Physician BENJAMIN SOSA JUDITH A. Accession Number [id number] CPT4 Codes 10601 () Reason For Exam respiratory failure Report [...] I Transcribed Date and Time: 10/23/2019 7:43 [place], [facility] Incoming Radiology Results From [facility] - 10/23/2019 7:44 AM EDT Patient Name: CHARLIE NGUYEN ---Diagnostic Radiology--- Exam Date/Time 10/23/2019 06:36:40 EDT Exam CR Chest Portable Ordering Physician BENJAMIN SOSA JUDITH A. Accession Number [id number] CPT4 Codes 75498 () Reason For Exam respiratory failure Report [...] I Transcribed Date and Time: 10/23/2019 7:43 [place] Basic Metabolic Panelon 09-30 Anion gap [Moles/Vol] 8 mmol/L [place] Calcium [Mass/Vol] 8.2 mg/dL Low 8.4 - 10. 4 mg/dL [place] Chloride [Moles/Vol] 104 mmol/L 98 - 10 7 mmol/L [place] CO2 [Moles/Vol] 30 mmol/L 22 - 30 mmol/L [place] Creatinine [Mass/Vol] 0.39 mg/dL Low 0.52 - 1.25 mg/dL [place] EGFR IF NonAfrican Ecuadorean >90.0 >60 mL/min [place] Comment on above: KDIGO guidelines pro [...] MDRD (S/P/Bld) [Vol rate/Area] mL/min/{1.73_m2} >60 mL/min [place] Glucose [Mass/Vol] 96 mg/dL 70 - 100 mg/dL [place] Potassium [Moles/Vol] 3.2 mmol/L Low 3.5 - 5.1 mmol/L [place] Sodium [Moles/Vol] 142 mmol/L 135 - 145 mmol/L [place] Urea nitrogen [Mass/Vol] 15 mg/dL 7 - 20 mg/d L [place] CBC Auto Differentialon 05- Absolute Baso # 0.1 10*3/uL 0 - 0.2 10*3/uL [place] Absolute Neut # 6.9 10*3/uL 1.8 - 7 10*3/uL [place] Basophils/100 WBC (Bld) 0.7 % 0 - 2 % [place] Eosinophils (Bld) [#/Vol] 0.3 10*3/uL 0 - 0.5 10*3/uL [place] Eosinophils/100 WBC (Bld) 3.7 % 1 - 6 % [place] Erythrocyte distribution width (RBC) [Ratio] 15.2 % High 11.5 - 14.5 % [place] Granulocytes/100 WBC (Bld) 74.2 % 40 - 80 % [place] Hematocrit (Bld) [Volume fraction] 33.4 % Low 35 - 47 % [place] Hemoglobin (Bld) [Mass/Vol] 10.9 g/dL Low 11.7 - 16 g/dL [place] Interpretation and review of laboratory results Abnormal [place] Lymphocytes (Bld) [#/Vol] 1.4 10*3/uL 1 - 4.3 10*3/uL [place] Lymphocytes/100 WBC (Bld) 14.9 % Low 20 - 40 % [place] MCH (RBC) [Entitic mass] 31.7 pg 26 - 34 pg [place] MCHC (RBC) [Mass/Vol] 32.7 % 32 - 36 % [place] MCV (RBC) [Entitic vol] 96.8 fL 79 - 98 fL [place] Monocytes (Bld) [#/Vol] 0.6 10*3/uL 0 - 0.8 10*3/uL [place] Monocytes/100 WBC (Bld) 6.5 % 2 - 10 % [place] Platelet mean volume (Bld) [Entitic vol] 7.5 fL 7.4 - 10.4 fL [place] Platelets (Bld) [#/Vol] 341 10*3/uL 140 - 440 10*3/uL [place] RBC (Bld) [#/Vol] 3.44 10*6/uL Low 3.8 - 5.2 10*6/uL [place] WBC (Bld) [#/Vol] 9.2 10*3/uL 3.6 - 10.7 10*3/uL [place] Test Performed by [facility], [address] [place], [place] [address] [place] Calcium, Ionizedon 0 Ionized Ca 4.40 mg/dL 4.3 - 5.2 mg/dL [place] pH (Bld) 7.36 [pH] [place] Test Performed by [facility], [address] [place], [place] [address] [place] Hepatic Function Panelon Albumin [Mass/Vol] 3.1 g/dL Low 3.5 - 5 g/dL [place] ALP [Catalytic activity/Vol] 97 U/L 38 - 126 U/L [place] ALT [Catalytic activity/Vol] 100 U/L High 0 - 34 U/L [place] Comment on above: The ALT test is perf ormed by an updated assay method. Please note that the reference intervals have been changed and are now sex specific. AST [Catalytic activity/Vol] 56 U/L High 15 - 46 U/L [place] Bilirubin Ql (U) 0.5 mg/dL 0.2 - 1.3 mg/dL [place] Bilirubin.direct [Mass/Vol] 0.0 mg/dL 0 - 0.3 mg/dL [place] Protein [Mass/Vol] 7.0 g/dL 6.3 - 8.2 g/dL [place] MAGNESIUMon 10-22-2019 Magnesium [Mass/Vol] 1.6 mg/dL 1.6 - 2 .3 mg/dL [place] Otheron 10-22-2019 Interpretation and review of laboratory results Abnormal [place] Test Performed by [facility], [facility] [address] [place], [place] [address] [place] POCT Arterialon 10-22-2019 Base Excess, Arterial 4.2 mmol/L High -3 - 3 mmol/L [place] HCO3, Arterial 29.9 mmol/L High 21 - 25 mmol/L [place] Interpretation and review of laboratory results Abnormal [place] Oxygen saturation in Blood 96.4 % 95 - 100 % [place] pCO2, Arterial 48.1 mm[Hg] High 35 - 45 mm[Hg] [place] pH, Arterial 7.401 [place] pO2, Arterial 86.4 mm[Hg] 80 - 100 mm[Hg] [place] TCO2, Arterial 31.3 mmol/L High 23 - 27 mmol/L [place] Comment on above: Performed by CLIA ID : [id number] [place], [place] Test Performed by [facility], [facility] [address] [place], [place] [id number] [place] [address] Phosphoruson 10-22-2019 Phosphate [Mass/Vol] 3.6 mg/dL 2.5 - 4 .5 mg/dL [place] XR CHEST PORTABLEon 10-22-19 20 [place], [facility] - 10/22/2019 6:46 AM EDT Patient Name: CHARLIE NGUYEN ---Diagnostic Radiology--- Exam Date/Time 10/22/2019 06:14:22 EDT Exam CR Chest Portable Ordering Physician BENJAMIN SOSA JUDITH A. Accession Number [id number] CPT4 Codes 38692 () Reason For Exam respiratory failure Report [...] Chronic interstitial changes. Report Dictated on Workstation: [id number] --- Final --- Dictating Physician: DO DICKEY ALFRED Signed Date and Time: 10/22/2019 6:45 am Signed by: DO DICKEY ALFRED Transcribed Date and Time: 10/22/2019 6:46 [place] Patient Name: CHARLIE NGUYEN ---Diagnostic Radiology--- Exam Date/Time 10/22/2019 06:14:22 EDT Exam CR Chest Portable Ordering Physician BENJAMIN SOSA JUDITH A. Accession Number [id number] CPT4 Codes 16707 () Reason For Exam respiratory failure Report [...] Chronic interstitial changes. Report Dictated on Workstation: [id number] --- Final --- Dictating Physician: DO DICKEY ALFRED Signed Date and Time: 10/22/2019 6:45 am Signed by: DO DICKEY ALFRED Transcribed Date and Time: 10/22/2019 6:46 [place] Basic Metabolic Panelon 09-30 Anion gap [Moles/Vol] 11 mmol/L [place] Calcium [Mass/Vol] 8.3 mg/dL Low 8.4 - 10. 4 mg/dL [place] Chloride [Moles/Vol] 107 mmol/L 98 - 10 7 mmol/L [place] CO2 [Moles/Vol] 25 mmol/L 22 - 30 mmol/L [place] Creatinine [Mass/Vol] 0.36 mg/dL Low 0.52 - 1.25 mg/dL [place] EGFR IF NonAfrican Ecuadorean >90.0 >60 mL/min [place] Comment on above: KDIGO guidelines pro [...] MDRD (S/P/Bld) [Vol rate/Area] mL/min/{1.73_m2} >60 mL/min [place] Glucose [Mass/Vol] 98 mg/dL 70 - 100 mg/dL [place] Potassium [Moles/Vol] 2.8 mmol/L Low 3.5 - 5.1 mmol/L [place] Sodium [Moles/Vol] 143 mmol/L 135 - 145 mmol/L [place] Urea nitrogen [Mass/Vol] 17 mg/dL 7 - 20 mg/d L [place] CBC Auto Differentialon 05-2 Absolute Baso # 0.1 10*3/uL 0 - 0.2 10*3/uL [place] Absolute Neut # 8.1 10*3/uL High 1.8 - 7 10*3/uL [place] Basophils/100 WBC (Bld) 0.8 % 0 - 2 % [place] Eosinophils (Bld) [#/Vol] 0.3 10*3/uL 0 - 0.5 10*3/uL [place] Eosinophils/100 WBC (Bld) 2.9 % 1 - 6 % [place] Erythrocyte distribution width (RBC) [Ratio] 15.2 % High 11.5 - 14.5 % [place] Granulocytes/100 WBC (Bld) 76.9 % 40 - 80 % [place] Hematocrit (Bld) [Volume fraction] 33.5 % Low 35 - 47 % [place] Hemoglobin (Bld) [Mass/Vol] 11.1 g/dL Low 11.7 - 16 g/dL [place] Interpretation and review of laboratory results Abnormal [place] Lymphocytes (Bld) [#/Vol] 1.3 10*3/uL 1 - 4.3 10*3/uL [place] Lymphocytes/100 WBC (Bld) 11.9 % Low 20 - 40 % [place] MCH (RBC) [Entitic mass] 32.0 pg 26 - 34 pg [place] MCHC (RBC) [Mass/Vol] 33.1 % 32 - 36 % [place] MCV (RBC) [Entitic vol] 96.5 fL 79 - 98 fL [place] Monocytes (Bld) [#/Vol] 0.8 10*3/uL 0 - 0.8 10*3/uL [place] Monocytes/100 WBC (Bld) 7.5 % 2 - 10 % [place] Platelet mean volume (Bld) [Entitic vol] 7.8 fL 7.4 - 10.4 fL [place] Platelets (Bld) [#/Vol] 366 10*3/uL 140 - 440 10*3/uL [place] RBC (Bld) [#/Vol] 3.47 10*6/uL Low 3.8 - 5.2 10*6/uL [place] WBC (Bld) [#/Vol] 10.6 10*3/uL 3.6 - 10.7 10*3/uL [place] Test Performed by [facility], [address], [place], [place] [address] [place] Hepatic Function Panelon Albumin [Mass/Vol] 3.4 g/dL Low 3.5 - 5 g/dL [place] ALP [Catalytic activity/Vol] 107 U/L 38 - 126 U/L [place] ALT [Catalytic activity/Vol] 126 U/L High 0 - 34 U/L [place] Comment on above: The ALT test is perf ormed by an updated assay method. Please note that the reference intervals have been changed and are now sex specific. AST [Catalytic activity/Vol] 72 U/L High 15 - 46 U/L [place] Bilirubin Ql (U) 0.7 mg/dL 0.2 - 1.3 mg/dL [place] Bilirubin.direct [Mass/Vol] 0.0 mg/dL 0 - 0.3 mg/dL [place] Protein [Mass/Vol] 7.6 g/dL 6.3 - 8.2 g/dL [place] MRI BRAIN W WO CONTRASTon Patient Name: CHARLIE NGUYEN ---MRI--- Exam Date/Time 10/21/2019 11:17:35 EDT Exam MRI Brain w/ + w/o Contrast Ordering Physician TAMARA GILL Accession Number [id number] CPT4 Codes 14606 () Reason For Exam new onset seizures [...] JEFFREY Transcribed Date and Time: 10/21/2019 2:08 [facility], [facility] Incoming Radiology Results From [facility] - 10/21/2019 2:09 PM EDT Patient Name: CHARLIE NGUYEN ---MRI--- Exam Date/Time 10/21/2019 11:17:35 EDT Exam MRI Brain w/ + w/o Contrast Ordering Physician TAMARA GILL Accession Number [id number] CPT4 Codes 06240 () Reason For Exam new onset seizures [...] JEFFREY Transcribed Date and Time: 10/21/2019 2:08 [place] Otheron 10-21-2019 Interpretation and review of laboratory results Abnormal [place] Test Performed by [facility], [address] [place] [id number] [place] POCT Arterialon 10-21-2019 Base Excess, Arterial 2.8 mmol/L -3 - 3 mmol/L [place] HCO3, Arterial 27.4 mmol/L High 21 - 25 mmol/L [place] Interpretation and review of laboratory results Abnormal [place] Oxygen saturation in Blood 93.7 % Low 95 - 100 % [place] pCO2, Arterial 41.0 mm[Hg] 35 - 45 mm[Hg] [place] pH, Arterial 7.433 [place] pO2, Arterial 67.7 mm[Hg] Low 80 - 100 mm[Hg] [place] Sodium [Moles/Vol] 40 mmol/L [place] Comment on above: Performed by CLIA ID : [id number] [place] TCO2, Arterial 28.7 mmol/L High 23 - 27 mmol/L [facility], [place] Test Performed by [facility], [address], [place], [place] [address] [facility], [place] XA SPECIAL ANGIOGRAPHY PROCE Es[place]anza 10-21-2019 [place], [facility] Incoming Radiology Results From [facility] 10/21/2019 3:26 PM EDT Patient Name: CHARLIE NGUYEN ---Special Procedures--- Exam Date/Time 10/21/2019 15:06:31 EDT Exam XA Special Angiography Procedure Ordering Physician DES ROMERO Accession Number [id number] Reason For Exam PICC limited access Report [...] KEVIN Transcribed Date and Time: 10/21/2019 3:26 [place] Patient Name: CHARLIE NGUYEN ---Special Procedures--- Exam Date/Time 10/21/2019 15:06:31 EDT Exam XA Special Angiography Procedure Ordering Physician DES ROMERO Accession Number [id number] Reason For Exam PICC limited access Report [...] KEVIN Transcribed Date and Time: 10/21/2019 3:26 [place] AMMONIAon 10-20-2019 Ammonia (P) [Mass/Vol] ug/dL 9 - 3 0 umol/L [place] Test [email or web address], [address], [place], [place] [address] [place] CBC Auto Differentialon 09-30 Absolute Baso # 0.1 10*3/uL 0 - 0.2 10*3/uL [place] Absolute Neut # 10.2 10*3/uL High 1.8 - 7 10*3/uL [place] Basophils/100 WBC (Bld) 0.6 % 0 - 2 % [place] Eosinophils (Bld) [#/Vol] 0.1 10*3/uL 0 - 0.5 10*3/uL [place] Eosinophils/100 WBC (Bld) 1.1 % 1 - 6 % [place] Erythrocyte distribution width (RBC) [Ratio] 15.2 % High 11.5 - 14.5 % [place] Granulocytes/100 WBC (Bld) 85.0 % High 40 - 80 % [place] Hematocrit (Bld) [Volume fraction] 35.9 % 35 - 47 % [place] Hemoglobin (Bld) [Mass/Vol] 11.6 g/dL Low 11.7 - 16 g/dL [place] Interpretation and review of laboratory results Abnormal [place] Lymphocytes (Bld) [#/Vol] 1.0 10*3/uL 1 - 4.3 10*3/uL [place] Lymphocytes/100 WBC (Bld) 7.9 % Low 20 - 40 % [place] MCH (RBC) [Entitic mass] 30.8 pg 26 - 34 pg [place] MCHC (RBC) [Mass/Vol] 32.2 % 32 - 36 % [place] MCV (RBC) [Entitic vol] 95.8 fL 79 - 98 fL [place] Monocytes (Bld) [#/Vol] 0.7 10*3/uL 0 - 0.8 10*3/uL [place] Monocytes/100 WBC (Bld) 5.4 % 2 - 10 % [place] Platelet mean volume (Bld) [Entitic vol] 7.7 fL 7.4 - 10.4 fL [place] Platelets (Bld) [#/Vol] 411 10*3/uL 140 - 440 10*3/uL [place] RBC (Bld) [#/Vol] 3.75 10*6/uL Low 3.8 - 5.2 10*6/uL [place] WBC (Bld) [#/Vol] 12.0 10*3/uL High 3.6 - 10.7 10*3/uL [place] Test Performed by [facility] [employer] [facility], [address] [place] [id number] [place] [address] COVID-19on 10-20-2019 SARS-CoV-2 Not Detected Expected Result: Not Detected _ Real-time, RT-PCR performed on the [employer] System by the [facility] Microbiology Service. Negative results do not preclude SARS-CoV-2 infection and should not be used as the sole basis for treatment or other patient management decisions. This assay was developed by [employer] and distributed under an Emergency Use Authorization (EUA) granted by the FDA for the qualitative detection of SARS-CoV-2 nucleic acid. [place] Test Performed by [facility] [employer] [facility], [address] [place] [id number] Specimen Source Comment:Nasopharyngea l Swab [place] CTA Chest W WO Contraston Patient Name: CHARLIE NGUYEN ---CT--- Exam Date/Time 10/20/2019 16:55:55 EDT Exam CTA Chest w/ + w/o Contrast Ordering Physician DES ROMERO Accession Number [id number] CPT4 Codes 85578 (), Q9967 (CT ISOVUE 370MG/[id number]& ML&1) Reason For Exam Recurrent hypoxia Report Reasons for examination: Recurrent hypoxia, drug overdose. CT scan of the chest were performed with bolus contrast and high resolution scans for CT pulmonary angiographic study, with images post-processed by myself on [employer] workstation, with 3D - volume rendered CT [...] WILLIAM Transcribed Date and Time: 10/20/2019 6:04 [facility], [place], [facility] Incoming Radiology Results From [facility] - 10/20/2019 6:04 PM EDT Patient Name: CHARLIE NGUYEN ---CT--- Exam Date/Time 10/20/2019 16:55:55 EDT Exam CTA Chest w/ + w/o Contrast Ordering Physician DES ROMERO Accession Number [id number] CPT4 Codes 46115 (), Q9967 (CT ISOVUE 370MG/[id number] ML&1) Reason For Exam Recurrent hypoxia Report Reasons for examination: Recurrent hypoxia, drug overdose. CT scan of the chest were performed with bolus contrast and high resolution scans for CT pulmonary angiographic study, with images post-processed by myself on [employer] workstation, with 3D - volume rendered CT [...] WILLIAM Transcribed Date and Time: 10/20/2019 6:04 [place], [place] Comprehensive Metabolic Pane rafiq 10-20-2019 Albumin [Mass/Vol] 3.4 g/dL Low 3.5 - 5 g/dL [place], [place] ALP [Catalytic activity/Vol] 122 U/L 38 - 126 U/L [place], [place] ALT [Catalytic activity/Vol] 134 U/L High 0 - 34 U/L [place] Comment on above: The ALT test is perf ormed by an updated assay method. Please note that the reference intervals have been changed and are now sex specific. Anion gap [Moles/Vol] 11 mmol/L [place] AST [Catalytic activity/Vol] 79 U/L High 15 - 46 U/L [place] Bilirubin Ql (U) 0.5 mg/dL 0.2 - 1.3 mg/dL [place] Calcium [Mass/Vol] 8.4 mg/dL 8.4 - 10. 4 mg/dL [place] Chloride [Moles/Vol] 106 mmol/L 98 - 10 7 mmol/L [place] CO2 [Moles/Vol] 26 mmol/L 22 - 30 mmol/L [place] Creatinine [Mass/Vol] 0.45 mg/dL Low 0.52 - 1.25 mg/dL [place] EGFR IF NonAfrican Ecuadorean >90.0 >60 mL/min [place] Comment on above: KDIGO guidelines pro [...] MDRD (S/P/Bld) [Vol rate/Area] mL/min/{1.73_m2} >60 mL/min [place] Glucose [Mass/Vol] 134 mg/dL High 70 - 100 mg/dL [place] Interpretation and review of laboratory results Abnormal [place] Potassium [Moles/Vol] 3.0 mmol/L Low 3.5 - 5.1 mmol/L [place] Protein [Mass/Vol] 7.5 g/dL 6.3 - 8.2 g/dL [place] Sodium [Moles/Vol] 143 mmol/L 135 - 145 mmol/L [place] Urea nitrogen [Mass/Vol] 21 mg/dL High 7 - 20 mg/d L [place] Test Performed by [facility], [address] [place], [place] [address] [facility], [place] EEG REPORTon 10-20-2019 Torin Salazar MD - [...] EEG/VIDEO RECORDING (2:24 P.M. - 2:48 P.M.) SAMPLE MAKER: TIFF EEG CLINICAL INDICATION: Seizure-like activity. NEUROLOGICAL HISTORY/DIAGNOSIS: A 64-year-old woman with seizure-like activity, drug overdose, restlessness and confusion. MEDICAL HISTORY: Migraine headaches and metabolic encephalopathy. CURRENT PERTINENT MEDICATIONS: Haldol, Lopressor, and Protonix. MENTAL STATUS PRESENTATION: Awake, verbal. The patient is restless, refusing to allow for the EEG. Not allowing the parts technician to properly work for the electrodes [...] cooperative, may be helpful if clinically indicated. Jazmin Job ID: [id number] DOD:10/20/2019 06:32 P PRASANNAM/aletha DOT:10/20/2019 07:52 P Job Number: [id number] Document Number: [id number] ###### cc: Rajendra Kim MD [facility] [address] [address] Des Romero MD [address] [place] [address] [facility] POCT Arterialon 10-20-2019 Base Excess, Arterial 1.5 mmol/L -3 - 3 mmol/L [facility] [place] HCO3, Arterial 27.3 mmol/L High 21 - 25 mmol/L [facility] [place] Interpretation and review of laboratory results Abnormal [facility] [place] Oxygen saturation in Blood 99.2 % 95 - 100 % [facility] [place] pCO2, Arterial 46.3 mm[Hg] High 35 - 45 mm[Hg] [facility] [place] pH, Arterial 7.377 [facility] [place] pO2, Arterial 149.2 mm[Hg] High 80 - 100 mm[Hg] [facility] [place] Sodium [Moles/Vol] 100 mmol/L [facility] [place] Comment on above: Performed by LATASHA ID : [id number] [place] TCO2, Arterial 28.7 mmol/L High 23 - 27 mmol/L [facility] [place] Test Performed by [address] [address] [facility] [place] Base Excess, Arterial 0.3 mmol/L -3 - 3 mmol/L [facility] [place] HCO3, Arterial 25.4 mmol/L High 21 - 25 mmol/L [facility] [place] Interpretation and review of laboratory results Abnormal [facility] [place] Oxygen saturation in Blood 98.1 % 95 - 100 % [facility] [place] pCO2, Arterial 42.0 mm[Hg] 35 - 45 mm[Hg] [facility] [place] pH, Arterial 7.390 [facility] [place] pO2, Arterial 107.0 mm[Hg] High 80 - 100 mm[Hg] [place] Sodium [Moles/Vol] 15 mmol/L [place] Comment on above: Performed by CLIA ID : [id number] [place] TCO2, Arterial 26.7 mmol/L 23 - 27 mmol/L [place] Test Performed by [facility], [address], [place], [place] [address] [place] POCT Glucoseon 10-20-2019 Glucose [Mass/Vol] 130 mg/dL High 70 - 100 mg/dL [place] Comment on above: Test performed by ucose meter. Results may be 10%-15% lower than serum/plasma values. (CLIA ID [id number]) Interpretation and review of laboratory results Abnormal [place] Test Performed by [facility], [address], [place], [place] [id number] [place] [address] Procalcitoninon 10-20-2019 Procalcitonin <0.10 <0.10 ng/mL [place] Sodium [Moles/Vol] See Below [place] Comment on above: PCT <0.50 = Low risk of severe sepsis and/or septic shock. PCT >2.00 = High risk of severe sepsis and/or septic shock. Test Performed by [facility], [address] [place] [address] [place] Troponinon 10-20-2019 Troponin I.cardiac [Mass/Vol] ng/mL 0 - 0.034 ng/mL [place] Comment on above: . Test Performed by [facility], [address], [place], [place] [address] [place] XR CHEST PORTABLEon 10-20-19 20 [place], [facility] Incoming Radiology [facility] - 10/20/2019 2:48 PM EDT Patient Name: CHARLIE NGUYEN ---Diagnostic Radiology--- Exam Date/Time 10/20/2019 12:59:00 EDT Exam CR Chest Portable Ordering Physician DES ROMERO Accession Number [id number] CPT4 Codes 40349 () Reason For Exam SOB Report PORTABLE [...] DIANE Transcribed Date and Time: 10/20/2019 2:47 [place] Patient Name: CHARLIE NGUYEN ---Diagnostic Radiology--- Exam Date/Time 10/20/2019 12:59:00 EDT Exam CR Chest Portable Ordering Physician DES ROMERO Accession Number [id number] CPT4 Codes 35308 () Reason For Exam SOB Report PORTABLE [...] DIANE Transcribed Date and Time: 10/20/2019 2:47 [place] Basic Metabolic Panelon 09-30 Anion gap [Moles/Vol] 10 mmol/L [place] Calcium [Mass/Vol] 8.0 mg/dL Low 8.4 - 10. 4 mg/dL [place] Chloride [Moles/Vol] 108 mmol/L High 98 - 10 7 mmol/L [place] CO2 [Moles/Vol] 24 mmol/L 22 - 30 mmol/L [place] Creatinine [Mass/Vol] 0.37 mg/dL Low 0.52 - 1.25 mg/dL [place] EGFR IF NonAfrican [place]adorean >90.0 >60 mL/min [place] Comment on above: KDIGO guidelines pro [...] MDRD (S/P/Bld) [Vol rate/Area] mL/min/{1.73_m2} >60 mL/min [place] Glucose [Mass/Vol] 90 mg/dL 70 - 100 mg/dL [place] Potassium [Moles/Vol] 3.2 mmol/L Low 3.5 - 5.1 mmol/L [place] Sodium [Moles/Vol] 142 mmol/L 135 - 145 mmol/L [place] Urea nitrogen [Mass/Vol] 21 mg/dL High 7 - 20 mg/d L [place] CBC Auto Differentialon 05-2 0-2020 Absolute Baso # 0.1 10*3/uL 0 - 0.2 10*3/uL [place] Absolute Neut # 8.2 10*3/uL High 1.8 - 7 10*3/uL [place] Basophils/100 WBC (Bld) 1.2 % 0 - 2 % [place] Eosinophils (Bld) [#/Vol] 0.3 10*3/uL 0 - 0.5 10*3/uL [place] Eosinophils/100 WBC (Bld) 2.7 % 1 - 6 % [place] Erythrocyte distribution width (RBC) [Ratio] 15.5 % High 11.5 - 14.5 % [place] Granulocytes/100 WBC (Bld) 75.9 % 40 - 80 % [place] Hematocrit (Bld) [Volume fraction] 35.7 % 35 - 47 % [place] Hemoglobin (Bld) [Mass/Vol] 11.6 g/dL Low 11.7 - 16 g/dL [place] Interpretation and review of laboratory results Abnormal [place] Lymphocytes (Bld) [#/Vol] 1.4 10*3/uL 1 - 4.3 10*3/uL [place] Lymphocytes/100 WBC (Bld) 12.7 % Low 20 - 40 % [place] MCH (RBC) [Entitic mass] 32.0 pg 26 - 34 pg [place] MCHC (RBC) [Mass/Vol] 32.4 % 32 - 36 % [place] MCV (RBC) [Entitic vol] 98.6 fL High 79 - 98 fL [place] Monocytes (Bld) [#/Vol] 0.8 10*3/uL 0 - 0.8 10*3/uL [place] Monocytes/100 WBC (Bld) 7.5 % 2 - 10 % [place] Platelet mean volume (Bld) [Entitic vol] 7.4 fL 7.4 - 10.4 fL [place] Platelets (Bld) [#/Vol] 378 10*3/uL 140 - 440 10*3/uL [place] RBC (Bld) [#/Vol] 3.61 10*6/uL Low 3.8 - 5.2 10*6/uL [place] WBC (Bld) [#/Vol] 10.8 10*3/uL High 3.6 - 10.7 10*3/uL [place] Test Performed by [facility], [address] [place] [address] [address], [address] Hepatic Function Panelon Albumin [Mass/Vol] 3.4 g/dL Low 3.5 - 5 g/dL [place] ALP [Catalytic activity/Vol] 106 U/L 38 - 126 U/L [place] ALT [Catalytic activity/Vol] 156 U/L High 0 - 34 U/L [place] Comment on above: The ALT test is perf ormed by an updated assay method. Please note that the reference intervals have been changed and are now sex specific. AST [Catalytic activity/Vol] 103 U/L High 15 - 46 U/L [place] Bilirubin Ql (U) 0.7 mg/dL 0.2 - 1.3 mg/dL [place] Bilirubin.direct [Mass/Vol] 0.0 mg/dL 0 - 0.3 mg/dL [place] Protein [Mass/Vol] 7.2 g/dL 6.3 - 8.2 g/dL [place] Otheron 10-19-2019 Interpretation and review of laboratory results Abnormal [place] Test Performed by [facility], [address] [place] [address] POCT Glucoseon 10-19-2019 Glucose [Mass/Vol] 88 mg/dL 70 - 100 mg/dL [place] Comment on above: Test performed by gl ucose meter. Results may be 10%-15% lower than serum/plasma values. (CLIA ID [id number]) Test Performed by [facility], [address] [place] [address] Glucose [Mass/Vol] 93 mg/dL 70 - 100 mg/dL [place] Comment on above: Test performed by gl ucose meter. Results may be 10%-15% lower than serum/plasma values. (CLIA ID [id number]) Test Performed by [facility], [address] [place] [address] Basic Metabolic Panelon 09-29 Anion gap [Moles/Vol] 12 mmol/L [place] Calcium [Mass/Vol] 8.4 mg/dL 8.4 - 10. 4 mg/dL [place] Chloride [Moles/Vol] 107 mmol/L 98 - 10 7 mmol/L [place] CO2 [Moles/Vol] 23 mmol/L 22 - 30 mmol/L [place] Creatinine [Mass/Vol] 0.48 mg/dL Low 0.52 - 1.25 mg/dL [place] EGFR IF NonAfrican [place]cuadorean >90.0 >60 mL/min [place] Comment on above: KDIGO guidelines pro [...] MDRD (S/P/Bld) [Vol rate/Area] mL/min/{1.73_m2} >60 mL/min [place] Glucose [Mass/Vol] 120 mg/dL High 70 - 100 mg/dL [place] Potassium [Moles/Vol] 3.1 mmol/L Low 3.5 - 5.1 mmol/L [place] Sodium [Moles/Vol] 141 mmol/L 135 - 145 mmol/L [place] Urea nitrogen [Mass/Vol] 23 mg/dL High 7 - 20 mg/d L [place] CBC Auto Differentialon 05-1 Absolute Baso # 0.1 10*3/uL 0 - 0.2 10*3/uL [place] Absolute Neut # 9.6 10*3/uL High 1.8 - 7 10*3/uL [place] Basophils/100 WBC (Bld) 1.0 % 0 - 2 % [place] Eosinophils (Bld) [#/Vol] 0.2 10*3/uL 0 - 0.5 10*3/uL [place] Eosinophils/100 WBC (Bld) 1.8 % 1 - 6 % [place] Erythrocyte distribution width (RBC) [Ratio] 15.6 % High 11.5 - 14.5 % [place] Granulocytes/100 WBC (Bld) 74.8 % 40 - 80 % [place] Hematocrit (Bld) [Volume fraction] 35.7 % 35 - 47 % [place] Hemoglobin (Bld) [Mass/Vol] 11.8 g/dL 11.7 - 16 g/dL [place] Interpretation and review of laboratory results Abnormal [place] Lymphocytes (Bld) [#/Vol] 2.0 10*3/uL 1 - 4.3 10*3/uL [place] Lymphocytes/100 WBC (Bld) 15.2 % Low 20 - 40 % [place] MCH (RBC) [Entitic mass] 31.8 pg 26 - 34 pg [place] MCHC (RBC) [Mass/Vol] 33.0 % 32 - 36 % [place] MCV (RBC) [Entitic vol] 96.4 fL 79 - 98 fL [place] Monocytes (Bld) [#/Vol] 0.9 10*3/uL High 0 - 0.8 10*3/uL [place] Monocytes/100 WBC (Bld) 7.2 % 2 - 10 % [place] Platelet mean volume (Bld) [Entitic vol] 7.7 fL 7.4 - 10.4 fL [place] Platelets (Bld) [#/Vol] 459 10*3/uL High 140 - 440 10*3/uL [place] RBC (Bld) [#/Vol] 3.70 10*6/uL Low 3.8 - 5.2 10*6/uL [place] WBC (Bld) [#/Vol] 12.8 10*3/uL High 3.6 - 10.7 10*3/uL [place] Test [facility]formed by [facility], [address] [place], [place] [address] [place] Hepatic Function Panelon Albumin [Mass/Vol] 3.6 g/dL 3.5 - 5 g/dL [place] ALP [Catalytic activity/Vol] 126 U/L 38 - 126 U/L [place] ALT [Catalytic activity/Vol] 165 U/L High 0 - 34 U/L [place] Comment on above: The ALT test is perf ormed by an updated assay method. Please note that the reference intervals have been changed and are now sex specific. AST [Catalytic activity/Vol] 110 U/L High 15 - 46 U/L [place] Bilirubin Ql (U) 0.7 mg/dL 0.2 - 1.3 mg/dL [place] Bilirubin.direct [Mass/Vol] 0.0 mg/dL 0 - 0.3 mg/dL [place] Protein [Mass/Vol] 7.6 g/dL 6.3 - 8.2 g/dL [place] Otheron 10-18-2019 Interpretation and review of laboratory results Abnormal [place] Test Performed by [facility], [address], [place], [place] [address] [place] POCT Arterialon 10-18-2019 Base Excess, Arterial -0.3 mmol/L -3 - 3 mmol/L [place] HCO3, Arterial 24.8 mmol/L 21 - 25 mmol/L [place] Oxygen saturation in Blood 97.0 % 95 - 100 % [place] pCO2, Arterial 41.1 mm[Hg] 35 - 45 mm[Hg] [place] pH, Arterial 7.388 [place] pO2, Arterial 92.2 mm[Hg] 80 - 100 mm[Hg] [place] Sodium [Moles/Vol] 80 mmol/L [place] Comment on above: Performed by CLIA ID : [id number] [place] TCO2, Arterial 26 mmol/L 23 - 27 mmol/L [place] Test Performed by [facility], [address], [place], [place] [address] [place] POCT Glucoseon 10-18-2019 Glucose [Mass/Vol] 110 mg/dL High 70 - 100 mg/dL [place] Comment on above: Test performed by ucose meter. Results may be 10%-15% lower than serum/plasma values. (CLIA ID [id number]) Interpretation and review of laboratory results Abnormal [place] Test Performed by [facility], [address], [place], [place] [id number] [place] [address] XR CHEST PORTABLEon 10-18-19 20 [facility], [facility] Incoming Radiology [facility] - 10/18/2019 5:57 PM EDT Patient Name: CHARLIE NGUYEN ---Diagnostic Radiology--- Exam Date/Time 10/18/2019 17:41:40 EDT Exam CR Chest Portable Ordering Physician Gene CORONA MICHAEL THOMAS Accession Number [id number] CPT4 Codes 66018 () Reason For Exam sob Report Portable [...] structures are intact. Report Dictated on Workstation: [facility] --- Final --- Dictating Physician: MD CRANDALL RISA Signed Date and Time: 10/18/2019 5:56 pm Signed by: MD CRANDALL RISA Transcribed Date and Time: 10/18/2019 5:57 [place] Patient Name: CHARLIE NGUYEN ---Diagnostic Radiology--- Exam Date/Time 10/18/2019 17:41:40 EDT Exam CR Chest Portable Ordering Physician Gene CORONA MICHAEL THOMAS Accession Number [id number] CPT4 Codes 02601 () Reason For Exam sob Report Portable [...] structures are intact. Report Dictated on Workstation: [facility] --- Final --- Dictating Physician: MD CRANDALL RISA Signed Date and Time: 10/18/2019 5:56 pm Signed by: MD CRANDALL RISA Transcribed Date and Time: 10/18/2019 5:57 [place] Basic Metabolic Panelon 09-29 Anion gap [Moles/Vol] 11 mmol/L [place] Calcium [Mass/Vol] 8.1 mg/dL Low 8.4 - 10. 4 mg/dL [place] Chloride [Moles/Vol] 107 mmol/L 98 - 10 7 mmol/L [place] CO2 [Moles/Vol] 24 mmol/L 22 - 30 mmol/L [place] Creatinine [Mass/Vol] 0.53 mg/dL 0.52 - 1.25 mg/dL [place] EGFR IF NonAfrican [place]cuadorean >90.0 >60 mL/min [place] Comment on above: KDIGO guidelines pro [...] MDRD (S/P/Bld) [Vol rate/Area] mL/min/{1.73_m2} >60 mL/min [place] Glucose [Mass/Vol] 105 mg/dL High 70 - 100 mg/dL [place] Potassium [Moles/Vol] 3.6 mmol/L 3.5 - 5.1 mmol/L [place] Sodium [Moles/Vol] 142 mmol/L 135 - 145 mmol/L [place] Urea nitrogen [Mass/Vol] 24 mg/dL High 7 - 20 mg/d L [place] CBC Auto Differentialon 05-1 Absolute Baso # 0.2 10*3/uL 0 - 0.2 10*3/uL [place] Absolute Neut # 13.1 10*3/uL High 1.8 - 7 10*3/uL [place] Basophils/100 WBC (Bld) 1.3 % 0 - 2 % [place] Eosinophils (Bld) [#/Vol] 0.4 10*3/uL 0 - 0.5 10*3/uL [place] Eosinophils/100 WBC (Bld) 2.4 % 1 - 6 % [place] Erythrocyte distribution width (RBC) [Ratio] 15.3 % High 11.5 - 14.5 % [place] Granulocytes/100 WBC (Bld) 78.5 % 40 - 80 % [place] Hematocrit (Bld) [Volume fraction] 36.2 % 35 - 47 % [place] Hemoglobin (Bld) [Mass/Vol] 12.0 g/dL 11.7 - 16 g/dL [place] Interpretation and review of laboratory results Abnormal [place] Lymphocytes (Bld) [#/Vol] 2.1 10*3/uL 1 - 4.3 10*3/uL [place] Lymphocytes/100 WBC (Bld) 12.8 % Low 20 - 40 % [place] MCH (RBC) [Entitic mass] 32.3 pg 26 - 34 pg [place] MCHC (RBC) [Mass/Vol] 33.1 % 32 - 36 % [place] MCV (RBC) [Entitic vol] 97.6 fL 79 - 98 fL [place] Monocytes (Bld) [#/Vol] 0.8 10*3/uL 0 - 0.8 10*3/uL [place] Monocytes/100 WBC (Bld) 5.0 % 2 - 10 % [place] Platelet mean volume (Bld) [Entitic vol] 7.3 fL Low 7.4 - 10.4 fL [place] Platelets (Bld) [#/Vol] 575 10*3/uL High 140 - 440 10*3/uL [place] RBC (Bld) [#/Vol] 3.71 10*6/uL Low 3.8 - 5.2 10*6/uL [place] WBC (Bld) [#/Vol] 16.7 10*3/uL High 3.6 - 10.7 10*3/uL [place] Test Performed by [facility], [address] [place], [place] [address] [place] [address] Hepatic Function Panelon Albumin [Mass/Vol] 3.4 g/dL Low 3.5 - 5 g/dL [place] ALP [Catalytic activity/Vol] 131 U/L High 38 - 126 U/L [place] ALT [Catalytic activity/Vol] 219 U/L High 0 - 34 U/L [place] Comment on above: The ALT test is perf ormed by an updated assay method. Please note that the reference intervals have been changed and are now sex specific. AST [Catalytic activity/Vol] 86 U/L High 15 - 46 U/L [place] Bilirubin Ql (U) 0.8 mg/dL 0.2 - 1.3 mg/dL [place] Bilirubin.direct [Mass/Vol] 0.0 mg/dL 0 - 0.3 mg/dL [place] Protein [Mass/Vol] 7.3 g/dL 6.3 - 8.2 g/dL [place] Otheron 10-16-2019 Interpretation and review of laboratory results Abnormal [place] Test Performed by [facility], [address], [place], [place] [address] [place] Basic Metabolic Panelon 09-29 Anion gap [Moles/Vol] 10 mmol/L [place] Calcium [Mass/Vol] 8.2 mg/dL Low 8.4 - 10. 4 mg/dL [place] Chloride [Moles/Vol] 109 mmol/L High 98 - 10 7 mmol/L [place] CO2 [Moles/Vol] 24 mmol/L 22 - 30 mmol/L [place] Creatinine [Mass/Vol] 0.56 mg/dL 0.52 - 1.25 mg/dL [place] EGFR IF NonAfrican [place]cuadorean >90.0 >60 mL/min [place] Comment on above: KDIGO guidelines pro [...] MDRD (S/P/Bld) [Vol rate/Area] mL/min/{1.73_m2} >60 mL/min [place] Glucose [Mass/Vol] 117 mg/dL High 70 - 100 mg/dL [place] Potassium [Moles/Vol] 3.6 mmol/L 3.5 - 5.1 mmol/L [place] Sodium [Moles/Vol] 143 mmol/L 135 - 145 mmol/L [place] Urea nitrogen [Mass/Vol] 24 mg/dL High 7 - 20 mg/d L [place] CBC Auto Differentialon 05- Absolute Baso # 0.2 10*3/uL 0 - 0.2 10*3/uL [place] Absolute Neut # 13.2 10*3/uL High 1.8 - 7 10*3/uL [place] Basophils/100 WBC (Bld) 1.1 % 0 - 2 % [place] Eosinophils (Bld) [#/Vol] 0.4 10*3/uL 0 - 0.5 10*3/uL [place] Eosinophils/100 WBC (Bld) 2.5 % 1 - 6 % [place] Erythrocyte distribution width (RBC) [Ratio] 15.6 % High 11.5 - 14.5 % [place] Granulocytes/100 WBC (Bld) 76.2 % 40 - 80 % [place] Hematocrit (Bld) [Volume fraction] 38.5 % 35 - 47 % [place] Hemoglobin (Bld) [Mass/Vol] 12.2 g/dL 11.7 - 16 g/dL [place] Interpretation and review of laboratory results Abnormal [place] Lymphocytes (Bld) [#/Vol] 2.5 10*3/uL 1 - 4.3 10*3/uL [place] Lymphocytes/100 WBC (Bld) 14.3 % Low 20 - 40 % [place] MCH (RBC) [Entitic mass] 31.5 pg 26 - 34 pg [place] MCHC (RBC) [Mass/Vol] 31.8 % Low 32 - 36 % [place] MCV (RBC) [Entitic vol] 99.0 fL High 79 - 98 fL [place] Monocytes (Bld) [#/Vol] 1.0 10*3/uL High 0 - 0.8 10*3/uL [place] Monocytes/100 WBC (Bld) 5.9 % 2 - 10 % [place] Platelet mean volume (Bld) [Entitic vol] 7.4 fL 7.4 - 10.4 fL [place] Platelets (Bld) [#/Vol] 654 10*3/uL High 140 - 440 10*3/uL [place] RBC (Bld) [#/Vol] 3.88 10*6/uL 3.8 - 5.2 10*6/uL [place] WBC (Bld) [#/Vol] 17.4 10*3/uL High 3.6 - 10.7 10*3/uL [place] Test Performed by [facility], [address] [place] [address] [place] Hepatic Function Panelon Albumin [Mass/Vol] 3.3 g/dL Low 3.5 - 5 g/dL [place] ALP [Catalytic activity/Vol] 139 U/L High 38 - 126 U/L [place] ALT [Catalytic activity/Vol] 289 U/L High 0 - 34 U/L [place] Comment on above: The ALT test is perf ormed by an updated assay method. Please note that the reference intervals have been changed and are now sex specific. AST [Catalytic activity/Vol] 146 U/L High 15 - 46 U/L [place] Bilirubin Ql (U) 0.7 mg/dL 0.2 - 1.3 mg/dL [place] Bilirubin.direct [Mass/Vol] 0.0 mg/dL 0 - 0.3 mg/dL [place] Protein [Mass/Vol] 6.8 g/dL 6.3 - 8.2 g/dL [place] Otheron 10-15-2019 Interpretation and review of laboratory results Abnormal [place] Test Performed by [facility], [address], [place], [place] [address] [place] CBC Auto Differentialon 09-29 Absolute Baso # 0.3 10*3/uL High 0 - 0.2 10*3/uL [place] Absolute Neut # 15.3 10*3/uL High 1.8 - 7 10*3/uL [place] Basophils/100 WBC (Bld) 1.4 % 0 - 2 % [place] Eosinophils (Bld) [#/Vol] 0.2 10*3/uL 0 - 0.5 10*3/uL [place] Eosinophils/100 WBC (Bld) 0.8 % Low 1 - 6 % [place] Erythrocyte distribution width (RBC) [Ratio] 15.5 % High 11.5 - 14.5 % [place] Granulocytes/100 WBC (Bld) 77.4 % 40 - 80 % [place] Hematocrit (Bld) [Volume fraction] 37.4 % 35 - 47 % [place] Hemoglobin (Bld) [Mass/Vol] 12.2 g/dL 11.7 - 16 g/dL [place] Interpretation and review of laboratory results Abnormal [place] Lymphocytes (Bld) [#/Vol] 2.6 10*3/uL 1 - 4.3 10*3/uL [place] Lymphocytes/100 WBC (Bld) 13.1 % Low 20 - 40 % [place] MCH (RBC) [Entitic mass] 31.6 pg 26 - 34 pg [place] MCHC (RBC) [Mass/Vol] 32.6 % 32 - 36 % [place] MCV (RBC) [Entitic vol] 96.9 fL 79 - 98 fL [place] Monocytes (Bld) [#/Vol] 1.4 10*3/uL High 0 - 0.8 10*3/uL [place] Monocytes/100 WBC (Bld) 7.3 % 2 - 10 % [place] Platelet mean volume (Bld) [Entitic vol] 7.6 fL 7.4 - 10.4 fL [place] Platelets (Bld) [#/Vol] 669 10*3/uL High 140 - 440 10*3/uL [place] RBC (Bld) [#/Vol] 3.86 10*6/uL 3.8 - 5.2 10*6/uL [place] WBC (Bld) [#/Vol] 19.8 10*3/uL High 3.6 - 10.7 10*3/uL [place] Test Performed by [email or web address], [address] [place], [place], [place] [address] [place] Comprehensive Metabolic Pane rafiq 10-14-2019 Albumin [Mass/Vol] 3.2 g/dL Low 3.5 - 5 g/dL [place] ALP [Catalytic activity/Vol] 155 U/L High 38 - 126 U/L [place] ALT [Catalytic activity/Vol] 221 U/L High 0 - 34 U/L [place] Comment on above: The ALT test is perf ormed by an updated assay method. Please note that the reference intervals have been changed and are now sex specific. Anion gap [Moles/Vol] 9 mmol/L [place], [place] AST [Catalytic activity/Vol] 141 U/L High 15 - 46 U/L [place] Bilirubin Ql (U) 0.8 mg/dL 0.2 - 1.3 mg/dL [place] Calcium [Mass/Vol] 8.2 mg/dL Low 8.4 - 10. 4 mg/dL [place] Chloride [Moles/Vol] 105 mmol/L 98 - 10 7 mmol/L [place] CO2 [Moles/Vol] 27 mmol/L 22 - 30 mmol/L [place] Creatinine [Mass/Vol] 0.68 mg/dL 0.52 - 1.25 mg/dL [place] EGFR IF NonAfrican [place]orean >90.0 >60 mL/min [place] Comment on above: KDIGO guidelines pro [...] MDRD (S/P/Bld) [Vol rate/Area] mL/min/{1.73_m2} >60 mL/min [place] Glucose [Mass/Vol] 106 mg/dL High 70 - 100 mg/dL [place] Interpretation and review of laboratory results Abnormal [place] Potassium [Moles/Vol] 3.1 mmol/L Low 3.5 - 5.1 mmol/L [place] Protein [Mass/Vol] 7.0 g/dL 6.3 - 8.2 g/dL [place] Sodium [Moles/Vol] 141 mmol/L 135 - 145 mmol/L [place] Urea nitrogen [Mass/Vol] 22 mg/dL High 7 - 20 mg/d L [place] HEPATITIS PANEL, ACUTEon HAV IgM IA Qn (S) NOT DETECTED Not-Detect ed [place], [place] Hep B Core Ab, IgM NOT DETECTED Not-Detec senait [place], [place] Hepatitis B Surface Ag NOT DETECTED Not-D etected [place], [place] Hepatitis C Ab NOT DETECTED Not-Detected [place], [place] Comment on above: Patients with DETECT ED Hepatitis C Ab results should have a new specimen submitted for supplemental testing with a Hepatitis C Quantitative RNA assay (viral load), if clinically indicated. Test Performed by [facility], [address] [place] [address] [place], [place] Magnesiumon 10-14-2019 Magnesium [Mass/Vol] 1.7 mg/dL 1.6 - 2 .3 mg/dL [place] Otheron 10-14-2019 Test Performed by [facility], [address] [place], [place], [place] [address] [place], [place] Phosphoruson 10-14-2019 Phosphate [Mass/Vol] 3.5 mg/dL 2.5 - 4 .5 mg/dL [place] XR CHEST PORTABLEon 10-14-19 20 Rodolfo, [facility] Incoming Radiology Results From [facility] - 10/14/2019 9:19 AM EDT Patient Name: CHARLIE NGUYEN ---Diagnostic Radiology--- Exam Date/Time 10/14/2019 08:30:00 EDT Exam CR Chest Portable Ordering Physician CLINTON DELEON Accession Number [id number] CPT4 Codes 47686 () Reason For Exam resp failure/ pneumonia/ [...] ANTHONY Transcribed Date and Time: 10/14/2019 9:19 [place] Patient Name: CHARLIE NGUYEN ---Diagnostic Radiology--- Exam Date/Time 10/14/2019 08:30:00 EDT Exam CR Chest Portable Ordering Physician CLINTON DELEON Accession Number [id number] CPT4 Codes 24516 () Reason For Exam resp failure/ pneumonia/ [...] ANTHONY Transcribed Date and Time: 10/14/2019 9:19 [place], [place] CBC Auto Differentialon 09-29 Absolute Baso # 0.1 10*3/uL 0 - 0.2 10*3/uL [place] Absolute Neut # 13.4 10*3/uL High 1.8 - 7 10*3/uL [place] Basophils/100 WBC (Bld) 0.8 % 0 - 2 % [place] Eosinophils (Bld) [#/Vol] 0.0 10*3/uL 0 - 0.5 10*3/uL [place] Eosinophils/100 WBC (Bld) 0.0 % Low 1 - 6 % [place] Erythrocyte distribution width (RBC) [Ratio] 14.7 % High 11.5 - 14.5 % [place] Granulocytes/100 WBC (Bld) 84.2 % High 40 - 80 % [place] Hematocrit (Bld) [Volume fraction] 36.1 % 35 - 47 % [place] Hemoglobin (Bld) [Mass/Vol] 11.9 g/dL 11.7 - 16 g/dL [place] Lymphocytes (Bld) [#/Vol] 1.5 10*3/uL 1 - 4.3 10*3/uL [place] Lymphocytes/100 WBC (Bld) 9.7 % Low 20 - 40 % [place] MCH (RBC) [Entitic mass] 31.6 pg 26 - 34 pg [place] MCHC (RBC) [Mass/Vol] 33.1 % 32 - 36 % [place] MCV (RBC) [Entitic vol] 95.7 fL 79 - 98 fL [place], [place] Monocytes (Bld) [#/Vol] 0.8 10*3/uL 0 - 0.8 10*3/uL [place] Monocytes/100 WBC (Bld) 5.3 % 2 - 10 % [place] Platelet mean volume (Bld) [Entitic vol] 7.7 fL 7.4 - 10.4 fL [place] Platelets (Bld) [#/Vol] 668 10*3/uL High 140 - 440 10*3/uL [place] RBC (Bld) [#/Vol] 3.78 10*6/uL Low 3.8 - 5.2 10*6/uL [place] WBC (Bld) [#/Vol] 15.9 10*3/uL High 3.6 - 10.7 10*3/uL [place] Comprehensive Metabolic Pane rafiq 10-13-2019 Albumin [Mass/Vol] 3.4 g/dL Low 3.5 - 5 g/dL [place] ALP [Catalytic activity/Vol] 174 U/L High 38 - 126 U/L [place] ALT [Catalytic activity/Vol] 122 U/L High 0 - 34 U/L [place] Comment on above: The ALT test is perf ormed by an updated assay method. Please note that the reference intervals have been changed and are now sex specific. Anion gap [Moles/Vol] 9 mmol/L [place] AST [Catalytic activity/Vol] 118 U/L High 15 - 46 U/L [place] Bilirubin Ql (U) 0.9 mg/dL 0.2 - 1.3 mg/dL [place] Calcium [Mass/Vol] 8.2 mg/dL Low 8.4 - 10. 4 mg/dL [place] Chloride [Moles/Vol] 105 mmol/L 98 - 10 7 mmol/L [place] CO2 [Moles/Vol] 28 mmol/L 22 - 30 mmol/L [place] Creatinine [Mass/Vol] 0.52 mg/dL 0.52 - 1.25 mg/dL [place] EGFR IF NonAfrican Ecuadorean >90.0 >60 mL/min [place] Comment on above: KDIGO guidelines pro [...] MDRD (S/P/Bld) [Vol rate/Area] mL/min/{1.73_m2} >60 mL/min [place] Glucose [Mass/Vol] 110 mg/dL High 70 - 100 mg/dL [place] Potassium [Moles/Vol] 2.8 mmol/L Low 3.5 - 5.1 mmol/L [place] Protein [Mass/Vol] 7.2 g/dL 6.3 - 8.2 g/dL [place] Sodium [Moles/Vol] 142 mmol/L 135 - 145 mmol/L [place] Urea nitrogen [Mass/Vol] 15 mg/dL 7 - 20 mg/d L [place] Magnesiumon 10-13-2019 Magnesium [Mass/Vol] 1.8 mg/dL 1.6 - 2 .3 mg/dL [place] Otheron 10-13-2019 Interpretation and review of laboratory results Abnormal [place] Test [facility] by [email or web address], [address], [place], [place] [address] [place] Phosphoruson 10-13-2019 Phosphate [Mass/Vol] 2.6 mg/dL 2.5 - 4 .5 mg/dL [place] Potassiumon 10-13-2019 Potassium [Moles/Vol] 3.4 mmol/L Low 3.5 - 5.1 mmol/L [place] XR CHEST PORTABLEon 10-13-19 20 Patient Name: CHARLIE NGUYEN ---Diagnostic Radiology--- Exam Date/Time 10/13/2019 05:36:07 EDT Exam CR Chest Portable Ordering Physician CLINTON DELEON Accession Number [id number] CPT4 Codes 11592 () Reason For Exam resp failure/ pneumonia/ [...] ALFRED Transcribed Date and Time: 10/13/2019 5:58 [place], [place], [facility] Incoming Radiology Results From [facility] - 10/13/2019 5:58 AM EDT Patient Name: CHARLIE NGUYEN ---Diagnostic Radiology--- Exam Date/Time 10/13/2019 05:36:07 EDT Exam CR Chest Portable Ordering Physician CLINTON DELEON Accession Number [id number] CPT4 Codes 16761 () Reason For Exam resp failure/ pneumonia/ [...] ALFRED Transcribed Date and Time: 10/13/2019 5:58 [place] CBC Auto Differentialon 09-29 Absolute Baso # 0.0 10*3/uL 0 - 0.2 10*3/uL [place] Absolute Neut # 8.0 10*3/uL High 1.8 - 7 10*3/uL [place] Basophils/100 WBC (Bld) 0.3 % 0 - 2 % [place] Eosinophils (Bld) [#/Vol] 0.0 10*3/uL 0 - 0.5 10*3/uL [place] Eosinophils/100 WBC (Bld) 0.0 % Low 1 - 6 % [place] Erythrocyte distribution width (RBC) [Ratio] 15.2 % High 11.5 - 14.5 % [place] Granulocytes/100 WBC (Bld) 84.5 % High 40 - 80 % [place] Hematocrit (Bld) [Volume fraction] 32.7 % Low 35 - 47 % [place] Hemoglobin (Bld) [Mass/Vol] 10.7 g/dL Low 11.7 - 16 g/dL [place] Interpretation and review of laboratory results Abnormal [place] Lymphocytes (Bld) [#/Vol] 0.9 10*3/uL Low 1 - 4.3 10*3/uL [place] Lymphocytes/100 WBC (Bld) 9.3 % Low 20 - 40 % [place] MCH (RBC) [Entitic mass] 31.9 pg 26 - 34 pg [place] MCHC (RBC) [Mass/Vol] 32.9 % 32 - 36 % [place] MCV (RBC) [Entitic vol] 97.2 fL 79 - 98 fL [place], [place] Monocytes (Bld) [#/Vol] 0.6 10*3/uL 0 - 0.8 10*3/uL [place] Monocytes/100 WBC (Bld) 5.9 % 2 - 10 % [place] Platelet mean volume (Bld) [Entitic vol] 8.0 fL 7.4 - 10.4 fL [place] Platelets (Bld) [#/Vol] 571 10*3/uL High 140 - 440 10*3/uL [place] RBC (Bld) [#/Vol] 3.36 10*6/uL Low 3.8 - 5.2 10*6/uL [place] WBC (Bld) [#/Vol] 9.4 10*3/uL 3.6 - 10.7 10*3/uL [place] Test Performed by [email or web address], [address], [place], [place] [id number] [place] [address] Comprehensive Metabolic Pane rafiq 10-12-2019 Albumin [Mass/Vol] 3.3 g/dL Low 3.5 - 5 g/dL [place] ALP [Catalytic activity/Vol] 157 U/L High 38 - 126 U/L [place] ALT [Catalytic activity/Vol] 61 U/L High 0 - 34 U/L [place] Comment on above: The ALT test is perf ormed by an updated assay method. Please note that the reference intervals have been changed and are now sex specific. Anion gap [Moles/Vol] 8 mmol/L [place] AST [Catalytic activity/Vol] 69 U/L High 15 - 46 U/L [place] Bilirubin Ql (U) 0.5 mg/dL 0.2 - 1.3 mg/dL [place] Calcium [Mass/Vol] 8.0 mg/dL Low 8.4 - 10. 4 mg/dL [place] Chloride [Moles/Vol] 103 mmol/L 98 - 10 7 mmol/L [place] CO2 [Moles/Vol] 29 mmol/L 22 - 30 mmol/L [place] Creatinine [Mass/Vol] 0.48 mg/dL Low 0.52 - 1.25 mg/dL [place] EGFR IF NonAfrican Ecuadorean >90.0 >60 mL/min [place] Comment on above: KDIGO guidelines pro [...] MDRD (S/P/Bld) [Vol rate/Area] mL/min/{1.73_m2} >60 mL/min [place] Glucose [Mass/Vol] 168 mg/dL High 70 - 100 mg/dL [place] Interpretation and review of laboratory results Abnormal [place] Potassium [Moles/Vol] 3.7 mmol/L 3.5 - 5.1 mmol/L [place] Protein [Mass/Vol] 6.9 g/dL 6.3 - 8.2 g/dL [place] Sodium [Moles/Vol] 140 mmol/L 135 - 145 mmol/L [place] Urea nitrogen [Mass/Vol] 21 mg/dL High 7 - 20 mg/d L [place] Culture, Respiratoryon 10-11 Interpretation and review of laboratory results Abnormal [place] Respiratory Culture Rare Negative for PBP2a (MSSA). [place] Respiratory Culture Staphylococcus aureus Abnormal [place] Respiratory Culture Few normal respiratory naomi. Abnormal [place] Test Performed by [facility], [address] [place] [id number] Specimen Source Comment:Endotracheal [place] Magnesiumon 10-12-2019 Magnesium [Mass/Vol] 1.8 mg/dL 1.6 - 2 .3 mg/dL [place] Otheron 10-12-2019 Test Per[facility] by [facility], [address] [place] [address] [place] POCT Arterialon 10-12-2019 Base Excess, Arterial 3.1 mmol/L High -3 - 3 mmol/L [place] HCO3, Arterial 27.6 mmol/L High 21 - 25 mmol/L [place] Interpretation and review of laboratory results Abnormal [place] Oxygen saturation in Blood 94.8 % Low 95 - 100 % [place] pCO2, Arterial 40.8 mm[Hg] 35 - 45 mm[Hg] [place] pH, Arterial 7.438 [place] pO2, Arterial 72.1 mm[Hg] Low 80 - 100 mm[Hg] [place] Sodium [Moles/Vol] 45 mmol/L [place] Comment on above: Performed by CLIA ID : [id number] [place], [place] TCO2, Arterial 28.8 mmol/L High 23 - 27 mmol/L [place] Test Performed by [facility], [address], [place], [place] [address] [place] Phosphoruson 10-12-2019 Phosphate [Mass/Vol] 3.5 mg/dL 2.5 - 4 .5 mg/dL [place] Vancomycin, [place]on 020 Interpretation and review of laboratory results Abnormal [place] Vancomycin Tr 11.5 ug/mL Low 15 - 20 ug/mL [place] Comment on above: . Test Performed by [facility], [address], [place], [place] [id number] [place] [address] XR CHEST PORTABLEon 10-12-19 20 Rodolfo, [facility] Incoming Radiology Results From [facility] - 10/12/2019 4:52 AM EDT Patient Name: CHARLIE NGUYEN ---Diagnostic Radiology--- Exam Date/Time 10/12/2019 04:18:26 EDT Exam CR Chest Portable Ordering Physician CLINTON DELEON Accession Number [id number] CPT4 Codes 75384 () Reason For Exam resp failure/ pneumonia/ [...] ALFRED Transcribed Date and Time: 10/12/2019 4:52 [place] Patient Name: CHARLIE NGUYEN ---Diagnostic Radiology--- Exam Date/Time 10/12/2019 04:18:26 EDT Exam CR Chest Portable Ordering Physician CLINTON DELEON Accession Number [id number] CPT4 Codes 21781 () Reason For Exam resp failure/ pneumonia/ [...] ALFRED Transcribed Date and Time: 10/12/2019 4:52 [place] CBC Auto Differentialon 05 Absolute Baso # 0.0 10*3/uL 0 - 0.2 10*3/uL [place] Absolute Neut # 6.2 10*3/uL 1.8 - 7 10*3/uL [place] Basophils/100 WBC (Bld) 0.4 % 0 - 2 % [place] Eosinophils (Bld) [#/Vol] 0.0 10*3/uL 0 - 0.5 10*3/uL [place] Eosinophils/100 WBC (Bld) 0.1 % Low 1 - 6 % [place] Erythrocyte distribution width (RBC) [Ratio] 15.2 % High 11.5 - 14.5 % [place] Granulocytes/100 WBC (Bld) 75.5 % 40 - 80 % [place] Hematocrit (Bld) [Volume fraction] 30.1 % Low 35 - 47 % [place] Hemoglobin (Bld) [Mass/Vol] 9.8 g/dL Low 11.7 - 16 g/dL [place] Interpretation and review of laboratory results Abnormal [place] Lymphocytes (Bld) [#/Vol] 1.2 10*3/uL 1 - 4.3 10*3/uL [place] Lymphocytes/100 WBC (Bld) 14.1 % Low 20 - 40 % [place] MCH (RBC) [Entitic mass] 31.8 pg 26 - 34 pg [place] MCHC (RBC) [Mass/Vol] 32.7 % 32 - 36 % [place] MCV (RBC) [Entitic vol] 97.1 fL 79 - 98 fL [place], [place] Monocytes (Bld) [#/Vol] 0.8 10*3/uL 0 - 0.8 10*3/uL [place] Monocytes/100 WBC (Bld) 9.9 % 2 - 10 % [place] Platelet mean volume (Bld) [Entitic vol] 7.7 fL 7.4 - 10.4 fL [place] Platelets (Bld) [#/Vol] 494 10*3/uL High 140 - 440 10*3/uL [place] RBC (Bld) [#/Vol] 3.10 10*6/uL Low 3.8 - 5.2 10*6/uL [place] WBC (Bld) [#/Vol] 8.2 10*3/uL 3.6 - 10.7 10*3/uL [place] Test Performed by [facility], [address] [place], [place], [place] [id number] [place] [address] Comprehensive Metabolic Pane rafiq 10-11-2019 Albumin [Mass/Vol] 3.1 g/dL Low 3.5 - 5 g/dL [place] ALP [Catalytic activity/Vol] 163 U/L High 38 - 126 U/L [place] ALT [Catalytic activity/Vol] 36 U/L High 0 - 34 U/L [place] Comment on above: The ALT test is perf ormed by an updated assay method. Please note that the reference intervals have been changed and are now sex specific. Anion gap [Moles/Vol] 9 mmol/L [place] AST [Catalytic activity/Vol] 46 U/L 15 - 46 U/L [place] Bilirubin Ql (U) 0.5 mg/dL 0.2 - 1.3 mg/dL [place] Calcium [Mass/Vol] 8.1 mg/dL Low 8.4 - 10. 4 mg/dL [place] Chloride [Moles/Vol] 103 mmol/L 98 - 10 7 mmol/L [place] CO2 [Moles/Vol] 29 mmol/L 22 - 30 mmol/L [place] Creatinine [Mass/Vol] 0.5 mg/dL Low 0.52 - 1.25 mg/dL [place] EGFR IF NonAfrican Ecuadorean >90.0 >60 mL/min [place] Comment on above: CORRECTED RESULT...P revious above value was >60.0, verified on 10/11/19 at 05:39 by [facility] . KDIGO guidelines provide the following GFR [...] MDRD (S/P/Bld) [Vol rate/Area] mL/min/{1.73_m2} >60 mL/min [place] Comment on above: CORRECTED RESULT...P revious above value was >60.0, verified on 10/11/19 at 05:39 by [facility] . Glucose [Mass/Vol] 144 mg/dL High 70 - 100 mg/dL [place] Interpretation and review of laboratory results Abnormal [place] Potassium [Moles/Vol] 3.7 mmol/L 3.5 - 5.1 mmol/L [place] Protein [Mass/Vol] 6.5 g/dL 6.3 - 8.2 g/dL [place] Sodium [Moles/Vol] 140 mmol/L 135 - 145 mmol/L [place] Urea nitrogen [Mass/Vol] 16 mg/dL 7 - 20 mg/d L [place] Magnesiumon 10-11-2019 Magnesium [Mass/Vol] 1.9 mg/dL 1.6 - 2 .3 mg/dL [place] Otheron 10-11-2019 Test Performed by [facility], [address] [place], [place] [address] [place] POCT Arterialon 10-11-2019 Base Excess, Arterial 3.4 mmol/L High -3 - 3 mmol/L [place] HCO3, Arterial 28.2 mmol/L High 21 - 25 mmol/L [place] Interpretation and review of laboratory results Abnormal [place] Oxygen saturation in Blood 95.8 % 95 - 100 % [place] pCO2, Arterial 43.1 mm[Hg] 35 - 45 mm[Hg] [place] pH, Arterial 7.424 [place] pO2, Arterial 79.2 mm[Hg] Low 80 - 100 mm[Hg] [place] Sodium [Moles/Vol] 50 mmol/L [place] Comment on above: Performed by CLIA ID : [id number] [place], [place] TCO2, Arterial 29.5 mmol/L High 23 - 27 mmol/L [place] Test Performed by [facility], [address], [place], [place] [address] [place] Phosphoruson 10-11-2019 Phosphate [Mass/Vol] 3.0 mg/dL 2.5 - 4 .5 mg/dL [place] XR CHEST PORTABLEon 10-11-19 Patient Name: CHARLIE NGUYEN ---Diagnostic Radiology--- Exam Date/Time 10/11/2019 05:32:04 EDT Exam CR Chest Portable Ordering Physician CLINTON DELEON Accession Number [id number] CPT4 Codes 31669 () Reason For Exam resp failure/ pneumonia/ [...] ALFRED Transcribed Date and Time: 10/11/2019 5:32 [place], [facility] Incoming Radiology Results From [facility] - 10/11/2019 5:32 AM EDT Patient Name: CHARLIE NGUYEN ---Diagnostic Radiology--- Exam Date/Time 10/11/2019 05:32:04 EDT Exam CR Chest Portable Ordering Physician CLINTON DELEON Accession Number [id number] CPT4 Codes 86289 () Reason For Exam resp failure/ pneumonia/ [...] ALFRED Transcribed Date and Time: 10/11/2019 5:32 [place] CBC Auto Differentialon 05- Absolute Baso # 0.0 10*3/uL 0 - 0.2 10*3/uL [place] Absolute Neut # 7.1 10*3/uL High 1.8 - 7 10*3/uL [place] Basophils/100 WBC (Bld) 0.3 % 0 - 2 % [place] Eosinophils (Bld) [#/Vol] 0.0 10*3/uL 0 - 0.5 10*3/uL [place] Eosinophils/100 WBC (Bld) 0.3 % Low 1 - 6 % [place] Erythrocyte distribution width (RBC) [Ratio] 15.4 % High 11.5 - 14.5 % [place] Granulocytes/100 WBC (Bld) 77.3 % 40 - 80 % [place] Hematocrit (Bld) [Volume fraction] 29.0 % Low 35 - 47 % [place] Hemoglobin (Bld) [Mass/Vol] 9.7 g/dL Low 11.7 - 16 g/dL [place] Interpretation and review of laboratory results Abnormal [place] Lymphocytes (Bld) [#/Vol] 1.0 10*3/uL 1 - 4.3 10*3/uL [place] Lymphocytes/100 WBC (Bld) 11.4 % Low 20 - 40 % [place] MCH (RBC) [Entitic mass] 32.1 pg 26 - 34 pg [place] MCHC (RBC) [Mass/Vol] 33.2 % 32 - 36 % [place] MCV (RBC) [Entitic vol] 96.6 fL 79 - 98 fL [place] Monocytes (Bld) [#/Vol] 1.0 10*3/uL High 0 - 0.8 10*3/uL [place] Monocytes/100 WBC (Bld) 10.7 % High 2 - 10 % [place] Platelet mean volume (Bld) [Entitic vol] 7.9 fL 7.4 - 10.4 fL [place] Platelets (Bld) [#/Vol] 380 10*3/uL 140 - 440 10*3/uL [place] RBC (Bld) [#/Vol] 3.01 10*6/uL Low 3.8 - 5.2 10*6/uL [place] WBC (Bld) [#/Vol] 9.2 10*3/uL 3.6 - 10.7 10*3/uL [place] Test Performed by [facility], [address] [place], [place] [address] [place] Comprehensive Metabolic Pane rafiq 10-10-2019 Albumin [Mass/Vol] 3.2 g/dL Low 3.5 - 5 g/dL [place] ALP [Catalytic activity/Vol] 177 U/L High 38 - 126 U/L [place] ALT [Catalytic activity/Vol] 34 U/L 0 - 34 U/L [place] Comment on above: The ALT test is perf ormed by an updated assay method. Please note that the reference intervals have been changed and are now sex specific. Anion gap [Moles/Vol] 8 mmol/L [place] AST [Catalytic activity/Vol] 39 U/L 15 - 46 U/L [place] Bilirubin Ql (U) 0.8 mg/dL 0.2 - 1.3 mg/dL [place] Calcium [Mass/Vol] 7.8 mg/dL Low 8.4 - 10. 4 mg/dL [place] Chloride [Moles/Vol] 103 mmol/L 98 - 10 7 mmol/L [place] CO2 [Moles/Vol] 29 mmol/L 22 - 30 mmol/L [place] Creatinine [Mass/Vol] 0.56 mg/dL 0.52 - 1.25 mg/dL [place] EGFR IF NonAfrican Ecuadorean >60.0 >60 mL/min [place] Comment on above: Source- MDRD equatio n with creatinine calibration to IDMS(NKDEP) eGFR not recommended for drug dose adjustment GFR/1.73 sq M predicted among blacks MDRD (S/P/Bld) [Vol rate/Area] mL/min/{1.73_m2} >60 mL/min [place] Glucose [Mass/Vol] 126 mg/dL High 70 - 100 mg/dL [place] Interpretation and review of laboratory results Abnormal [place] Potassium [Moles/Vol] 3.7 mmol/L 3.5 - 5.1 mmol/L [place] Protein [Mass/Vol] 6.6 g/dL 6.3 - 8.2 g/dL [place] Sodium [Moles/Vol] 140 mmol/L 135 - 145 mmol/L [place] Urea nitrogen [Mass/Vol] 15 mg/dL 7 - 20 mg/d L [place] EKG 12 Leadon 10-10-2019 [place], [facility] Incoming Cardiology Results From [facility] - 10/10/2019 2:02 PM EDT [facility] Test Date: 2019-10-08 Pat Name: Charlie Nguyen Department: 2AHICU Room: 232 Gender: F Price Checker: JOVI : 1955 Requested By: NICA CANDELARIA Order Number: [id number] Mitesh MD: Edmar Atkinson Measurements Intervals [place] Rate: 109 P: 19 FL: 180 QRS: 10 QRSD: 100 T: 45 QT: 324 QTc: 437 Interpretive Statements SINUS TACHYCARDIA VENTRICULAR PREMATURE COMPLEX CONSIDER ANTEROSEPTAL INFARCT Electrical alternans, consider pericardial effusion Electronically Signed On 10-10-2019 14:01:44 EDT by [facility] Test Date: 2019-10-08 Pat Name: Charlie Patrick [facility]: 232 Gender: F Price Checker: JOVI : 1955 Requested By: NICA iMapDataSCH Order Number: [id number] Reading MD: Otabdirashid Sainimaier Measurements Intervals [place] Rate: 109 P: 19 FL: 180 QRS: 10 QRSD: 100 T: 45 QT: 324 QTc: 437 Interpretive Statements SINUS TACHYCARDIA VENTRICULAR PREMATURE COMPLEX CONSIDER ANTEROSEPTAL INFARCT Electrical alternans, consider pericardial effusion Electronically Signed On 10-10-2019 14:01:44 EDT by [facility] Test Date: 2019-10-08 Pat Name: Charlie Nguyen [facility]: 232 Gender: F Price Checker: : 1955 Requested By: NICA iMapDataSCH Order Number: [id number] Reading MD: Edmar Martínezier Measurements Intervals [place] Rate: 72 P: 39 FL: 184 QRS: 7 QRSD: 108 T: 19 QT: 412 QTc: 451 Interpretive Statements SINUS RHYTHM BORDERLINE INTRAVENTRICULAR CONDUCTION DELAY Compared to ECG 10/07/2019 21:02:04 No significant changes Electronically Signed On 10-10-2019 12:46:05 EDT by [facility], [place] Rodolfo, [facility] Incoming Cardiology Results From [facility] - 10/10/2019 12:47 PM EDT [facility] Test Date: 2019-10-08 Pat Name: Charlie Patrick [facility] Room: 232 Gender: F Price Checker: : 1955 Requested By: NICA iMapDataSCH Order Number: [id number] Reading MD: Otabdirashid Niedermaier Measurements Intervals [place] Rate: 72 P: 39 FL: 184 QRS: 7 QRSD: 108 T: 19 QT: 412 QTc: 451 Interpretive Statements SINUS RHYTHM BORDERLINE INTRAVENTRICULAR CONDUCTION DELAY Compared to ECG 10/07/2019 21:02:04 No significant changes Electronically Signed On 10-10-2019 12:46:05 EDT by Edmar Atkinson [place], [place] Gram Stainon 10-10-2019 INR Coag (Bld) [Relative time] Many polymorphonuclear cells/lpf. Few epithelial cells/lpf. Rare gram positive cocci in clusters. Rare gram positive bacilli. [place] Test Performed by [facility], [address] [place] [id number] Specimen Source Comment:Endotracheal [place] Magnesiumon 10-10-2019 Magnesium [Mass/Vol] 1.9 mg/dL 1.6 - 2 .3 mg/dL [place] Otheron 10-10-2019 Test Performed by [facility], [address], [place], [place] [address] [place] POCT Arterialon 10-10-2019 Base Excess, Arterial 5.1 mmol/L High -3 - 3 mmol/L [place] HCO3, Arterial 29.6 mmol/L High 21 - 25 mmol/L [place] Interpretation and review of laboratory results Abnormal [place] Oxygen saturation in Blood 95.5 % 95 - 100 % [place] pCO2, Arterial 42.7 mm[Hg] 35 - 45 mm[Hg] [place] pH, Arterial 7.449 [place] pO2, Arterial 75.7 mm[Hg] Low 80 - 100 mm[Hg] [place] Sodium [Moles/Vol] 50 mmol/L [place] Comment on above: Performed by [employer] ID : [id number] [place], [place] TCO2, Arterial 30.9 mmol/L High 23 - 27 mmol/L [place] Test Performed by [facility], [address] [place], [place] [address] [place] Phosphoruson 10-10-2019 Phosphate [Mass/Vol] 3.8 mg/dL 2.5 - 4 .5 mg/dL [place] XR CHEST PORTABLEon 10-10-19 20 Rodol[facility], [facility] - 10/10/2019 3:36 PM EDT Patient Name: CHARLIE NGUYEN ---Diagnostic Radiology--- Exam Date/Time 10/10/2019 13:50:00 EDT Exam CR Chest Portable Ordering Physician LANCE DELEONLULU Accession Number [id number] CPT4 Codes 81738 () Reason For Exam resp failure/ pneumonia/ [...] ANTHONY Transcribed Date and Time: 10/10/2019 3:36 [place] Patient Name: CHARLIE NGUYEN ---Diagnostic Radiology--- Exam Date/Time 10/10/2019 13:50:00 EDT Exam CR Chest Portable Ordering Physician CLINTON DELEON Accession Number [id number] CPT4 Codes 85198 () Reason For Exam resp failure/ pneumonia/ [...] ANTHONY Transcribed Date and Time: 10/10/2019 3:36 [place], [place] Basic Metabolic Panelon 05- Anion gap [Moles/Vol] 6 mmol/L [facility], [place] Calcium [Mass/Vol] 7.9 mg/dL Low 8.4 - 10. 4 mg/dL [place], [place] Chloride [Moles/Vol] 105 mmol/L 98 - 10 7 mmol/L [place], [place] CO2 [Moles/Vol] 26 mmol/L 22 - 30 mmol/L [place] Creatinine [Mass/Vol] 0.54 mg/dL 0.52 - 1.25 mg/dL [place], [place] EGFR IF NonAfrican [place] >60.0 >60 mL/min [place], [place] Comment on above: Source- MDRD equatio n with creatinine calibration to IDMS(NKDEP) eGFR not recommended for drug dose adjustment GFR/1.73 sq M predicted among blacks MDRD (S/P/Bld) [Vol rate/Area] mL/min/{1.73_m2} >60 mL/min [place], [place] Glucose [Mass/Vol] 122 mg/dL High 70 - 100 mg/dL [place], [place] Interpretation and review of laboratory results Abnormal [place], [place] Potassium [Moles/Vol] 3.5 mmol/L 3.5 - 5.1 mmol/L [place] Sodium [Moles/Vol] 137 mmol/L 135 - 145 mmol/L [place] Urea nitrogen [Mass/Vol] 15 mg/dL 7 - 20 mg/d L [place] Test Performed by [employer] [facility], [address] [place], [place], [place] [address] [place], [place] Anion gap [Moles/Vol] 6 mmol/L [facility], [place] Calcium [Mass/Vol] 7.8 mg/dL Low 8.4 - 10. 4 mg/dL [place] Chloride [Moles/Vol] 104 mmol/L 98 - 10 7 mmol/L [place] CO2 [Moles/Vol] 27 mmol/L 22 - 30 mmol/L [place] Creatinine [Mass/Vol] 0.54 mg/dL 0.52 - 1.25 mg/dL [place] EGFR IF NonAfrican Ecuadorean >60.0 >60 mL/min [place] Comment on above: Source- MDRD equatio n with creatinine calibration to IDMS(NKDEP) eGFR not recommended for drug dose adjustment GFR/1.73 sq M predicted among blacks MDRD (S/P/Bld) [Vol rate/Area] mL/min/{1.73_m2} >60 mL/min [place] Glucose [Mass/Vol] 124 mg/dL High 70 - 100 mg/dL [place] Interpretation and review of laboratory results Abnormal [place] Potassium [Moles/Vol] 4.0 mmol/L 3.5 - 5.1 mmol/L [place] Sodium [Moles/Vol] 137 mmol/L 135 - 145 mmol/L [place] Urea nitrogen [Mass/Vol] 14 mg/dL 7 - 20 mg/d L [place], [place] CBC Auto Differentialon 05-1 Absolute Baso # 0.1 10*3/uL 0 - 0.2 10*3/uL [place], [place] Absolute Neut # 8.9 10*3/uL High 1.8 - 7 10*3/uL [place], [place] Basophils/100 WBC (Bld) 0.6 % 0 - 2 % [place] Eosinophils (Bld) [#/Vol] 0.2 10*3/uL 0 - 0.5 10*3/uL [place] Eosinophils/100 WBC (Bld) 1.9 % 1 - 6 % [place] Erythrocyte distribution width (RBC) [Ratio] 14.8 % High 11.5 - 14.5 % [place] Granulocytes/100 WBC (Bld) 77.4 % 40 - 80 % [place] Hematocrit (Bld) [Volume fraction] 33.0 % Low 35 - 47 % [place] Hemoglobin (Bld) [Mass/Vol] 10.8 g/dL Low 11.7 - 16 g/dL [place] Interpretation and review of laboratory results Abnormal [place] Lymphocytes (Bld) [#/Vol] 1.1 10*3/uL 1 - 4.3 10*3/uL [place] Lymphocytes/100 WBC (Bld) 9.8 % Low 20 - 40 % [place] MCH (RBC) [Entitic mass] 31.5 pg 26 - 34 pg [place] MCHC (RBC) [Mass/Vol] 32.8 % 32 - 36 % [place] MCV (RBC) [Entitic vol] 96.0 fL 79 - 98 fL [place], [place] Monocytes (Bld) [#/Vol] 1.2 10*3/uL High 0 - 0.8 10*3/uL [place], [place] Monocytes/100 WBC (Bld) 10.3 % High 2 - 10 % [place], [place] Platelet mean volume (Bld) [Entitic vol] 8.4 fL 7.4 - 10.4 fL [place], [place] Platelets (Bld) [#/Vol] 346 10*3/uL 140 - 440 10*3/uL [place] RBC (Bld) [#/Vol] 3.44 10*6/uL Low 3.8 - 5.2 10*6/uL [place] WBC (Bld) [#/Vol] 11.5 10*3/uL High 3.6 - 10.7 10*3/uL [place] Test Performed by [facility] [facility], [address] [place], [place], [place] [address] [place], [place] Culture, Blood 2on 0 Blood Culture, Routine No growth at 5 days. [place] Test Performed by [facility], [address] [place] [address] Specimen Source Comment:Blood [place], [place] Hemoglobin and Hematocrit, B loodon 10-09-2019 Hematocrit (Bld) [Volume fraction] 33.5 % Low 35 - 47 % [place] Hemoglobin (Bld) [Mass/Vol] 11.1 g/dL Low 11.7 - 16 g/dL [place] Interpretation and review of laboratory results Abnormal [facility], [place] Test Performed by [facility], [facility] [address] Hematocrit (Bld) [Volume fraction] 33.2 % Low 35 - 47 % [place] Hemoglobin (Bld) [Mass/Vol] 11.0 g/dL Low 11.7 - 16 g/dL [place] Interpretation and review of laboratory results Abnormal [place] Test Performed by [facility], [facility] [address] Magnesiumon 10-09-2019 Magnesium [Mass/Vol] 2.0 mg/dL 1.6 - 2 .3 mg/dL [place], [place] Otheron 10-09-2019 Test Performed by [facility], [facility] [address] POCT Arterialon 10-09-2019 Base Excess, Arterial 2.9 mmol/L -3 - 3 mmol/L [place], [place] HCO3, Arterial 27.1 mmol/L High 21 - 25 mmol/L [place] Interpretation and review of laboratory results Abnormal [place], [place] Oxygen saturation in Blood 99.1 % 95 - 100 % [place] KY pCO2, Arterial 39.2 mm[Hg] 35 - 45 mm[Hg] [place], [place] pH, Arterial 7.448 [place], [place] pO2, Arterial 128.8 mm[Hg] High 80 - 100 mm[Hg] [place], [place] Sodium [Moles/Vol] 100 mmol/L [place], [place] Comment on above: Performed by LATASHA ID : [id number] [place], [place] TCO2, Arterial 28.3 mmol/L High 23 - 27 mmol/L [place], [place] Test Performed by [facility], [facility] [address] [place] Base Excess, Arterial 2.8 mmol/L -3 - 3 mmol/L [place], [place] HCO3, Arterial 26.5 mmol/L High 21 - 25 mmol/L [place] Interpretation and review of laboratory results Abnormal [place] Oxygen saturation in Blood 97.4 % 95 - 100 % [place] pCO2, Arterial 36.8 mm[Hg] 35 - 45 mm[Hg] [place], [place] pH, Arterial 7.466 High [place] pO2, Arterial 89.3 mm[Hg] 80 - 100 mm[Hg] [place], [place] Sodium [Moles/Vol] 40 mmol/L [place], [place] Comment on above: Performed by CLIA ID : [id number] [place], [place] TCO2, Arterial 27.7 mmol/L High 23 - 27 mmol/L [place], [place] Test Performed by [facility], [address] [place] [id number] [place] [address] Phosphoruson 10-09-2019 Phosphate [Mass/Vol] 4.3 mg/dL 2.5 - 4 .5 mg/dL [place], [place] XR CHEST PORTABLEon 10-09-19 20 Rodolfo, [facility] Incoming Radiology [facility] - 10/09/2019 3:56 PM EDT Patient Name: CHARLIE NGUYEN ---Diagnostic Radiology--- Exam Date/Time 10/09/2019 14:12:00 EDT Exam CR Chest Portable Ordering Physician DES ROMERO Accession Number [id number] CPT4 Codes 23626 () Reason For Exam intubation Report Portable [...] M Transcribed Date and Time: 10/09/2019 3:56 [place] Patient Name: CHARLIE NGUYEN ---Diagnostic Radiology--- Exam Date/Time 10/09/2019 14:12:00 EDT Exam CR Chest Portable Ordering Physician DES ROMERO Accession Number [id number] CPT4 Codes 50671 () Reason For Exam intubation Report Portable [...] M Transcribed Date and Time: 10/09/2019 3:56 [place], [place] Basic Metabolic Panelon 05-0 Anion gap [Moles/Vol] 8 mmol/L [place] Calcium [Mass/Vol] 7.7 mg/dL Low 8.4 - 10. 4 mg/dL [place], [place] Chloride [Moles/Vol] 103 mmol/L 98 - 10 7 mmol/L [place], [place] CO2 [Moles/Vol] 25 mmol/L 22 - 30 mmol/L [place], [place] Creatinine [Mass/Vol] 0.54 mg/dL 0.52 - 1.25 mg/dL [place], [place] EGFR IF NonAfrican Ecuadorean >60.0 >60 mL/min [place] Comment on above: Source- MDRD equatio n with creatinine calibration to IDMS(NKDEP) eGFR not recommended for drug dose adjustment GFR/1.73 sq M predicted among blacks MDRD (S/P/Bld) [Vol rate/Area] mL/min/{1.73_m2} >60 mL/min [place], [place] Glucose [Mass/Vol] 103 mg/dL High 70 - 100 mg/dL [place], [place] Interpretation and review of laboratory results Abnormal [place], [place] Potassium [Moles/Vol] 3.2 mmol/L Low 3.5 - 5.1 mmol/L [place], [place] Sodium [Moles/Vol] 136 mmol/L 135 - 145 mmol/L [place] Urea nitrogen [Mass/Vol] 14 mg/dL 7 - 20 mg/d L [place], [place] Test Performed by [facility], [address] [place] [address] [place], [place] Anion gap [Moles/Vol] 5 mmol/L [place], [place] Calcium [Mass/Vol] 7.5 mg/dL Low 8.4 - 10. 4 mg/dL [place], [place] Chloride [Moles/Vol] 103 mmol/L 98 - 10 7 mmol/L [place] CO2 [Moles/Vol] 26 mmol/L 22 - 30 mmol/L [place], [place] Creatinine [Mass/Vol] 0.53 mg/dL 0.52 - 1.25 mg/dL [place], [place] EGFR IF NonAfrican Ecuadorean >60.0 >60 mL/min [place] Comment on above: Source- MDRD equatio n with creatinine calibration to IDMS(NKDEP) eGFR not recommended for drug dose adjustment GFR/1.73 sq M predicted among blacks MDRD (S/P/Bld) [Vol rate/Area] mL/min/{1.73_m2} >60 mL/min [place] Glucose [Mass/Vol] 125 mg/dL High 70 - 100 mg/dL [place], [place] Interpretation and review of laboratory results Abnormal [place], [place] Potassium [Moles/Vol] 3.5 mmol/L 3.5 - 5.1 mmol/L [place] Sodium [Moles/Vol] 134 mmol/L Low 135 - 145 mmol/L [place] Urea nitrogen [Mass/Vol] 15 mg/dL 7 - 20 mg/d L [place] Test Performed by [facility] [facility], [address] [place], [place] [address] [place], [place] Anion gap [Moles/Vol] 8 mmol/L [place] Calcium [Mass/Vol] 7.5 mg/dL Low 8.4 - 10. 4 mg/dL [place], [place] Chloride [Moles/Vol] 102 mmol/L 98 - 10 7 mmol/L [facility], [place] CO2 [Moles/Vol] 26 mmol/L 22 - 30 mmol/L [place] Creatinine [Mass/Vol] 0.5 mg/dL Low 0.52 - 1.25 mg/dL [place] EGFR IF NonAfrican Ecuadorean >60.0 >60 mL/min [place] Comment on above: Source- MDRD equatio n with creatinine calibration to IDMS(NKDEP) eGFR not recommended for drug dose adjustment GFR/1.73 sq M predicted among blacks MDRD (S/P/Bld) [Vol rate/Area] mL/min/{1.73_m2} >60 mL/min [facility], [place] Glucose [Mass/Vol] 113 mg/dL High 70 - 100 mg/dL [place], [place] Interpretation and review of laboratory results Abnormal [place], [place] Potassium [Moles/Vol] 3.2 mmol/L Low 3.5 - 5.1 mmol/L [place], [place] Sodium [Moles/Vol] 135 mmol/L 135 - 145 mmol/L [place] Urea nitrogen [Mass/Vol] 16 mg/dL 7 - 20 mg/d L [place] Test Performed by [facility], [address], [place], [place] [address] [place], [place] CBC Auto Differentialon 05-0 9-2019 Absolute Baso # 0.1 10*3/uL 0 - 0.2 10*3/uL [place], [place] Absolute Neut # 8.4 10*3/uL High 1.8 - 7 10*3/uL [place], [place] Basophils/100 WBC (Bld) 0.7 % 0 - 2 % [place], [place] Eosinophils (Bld) [#/Vol] 0.2 10*3/uL 0 - 0.5 10*3/uL [place] Eosinophils/100 WBC (Bld) 1.8 % 1 - 6 % [place] Erythrocyte distribution width (RBC) [Ratio] 15.0 % High 11.5 - 14.5 % [place] Granulocytes/100 WBC (Bld) 75.2 % 40 - 80 % [place] Hematocrit (Bld) [Volume fraction] 27.1 % Low 35 - 47 % [place] Hemoglobin (Bld) [Mass/Vol] 8.8 g/dL Low 11.7 - 16 g/dL [place] Interpretation and review of laboratory results Abnormal [place], [place] Lymphocytes (Bld) [#/Vol] 1.2 10*3/uL 1 - 4.3 10*3/uL [place], [place] Lymphocytes/100 WBC (Bld) 11.1 % Low 20 - 40 % [place] MCH (RBC) [Entitic mass] 31.6 pg 26 - 34 pg [place], [place] MCHC (RBC) [Mass/Vol] 32.5 % 32 - 36 % [place], [place] MCV (RBC) [Entitic vol] 97.3 fL 79 - 98 fL [place], [place] Monocytes (Bld) [#/Vol] 1.2 10*3/uL High 0 - 0.8 10*3/uL [place], [place] Monocytes/100 WBC (Bld) 11.2 % High 2 - 10 % [place], [place] Platelet mean volume (Bld) [Entitic vol] 8.7 fL 7.4 - 10.4 fL [place], [place] Platelets (Bld) [#/Vol] 228 10*3/uL 140 - 440 10*3/uL [place] RBC (Bld) [#/Vol] 2.79 10*6/uL Low 3.8 - 5.2 10*6/uL [place], [place] WBC (Bld) [#/Vol] 11.1 10*3/uL High 3.6 - 10.7 10*3/uL [place], [place] Test Performed by [facility], [address] [facility] [address] [place], [place] [id number] [place] [address] Culture, Blood 1on 0 Blood Culture, Routine No growth at 5 days. [place], [place] Test Performed by [employer] [facility], [address] [place] [id number] Specimen Source Comment:Blood [place], [place] Culture, Respiratoryon 10-07 Interpretation and review of laboratory results Abnormal [place], [place] Respiratory Culture Corynebacterium striatum Abnormal [place] Respiratory Culture Many Possible identification For identification and/or sensitivity, refer to culture collected on: 10/05/2019 at 0837, ([id number] ). [place], [place] Respiratory Culture Staphylococcus aureus Abnormal [place] Respiratory Culture Moderate For identification and/or sensitivity, refer to culture collected on: 10/05/2019 at 0837 ([id number]) [place], [place] Test Performed by [employer] [facility], [address] [place] [id number] Specimen Source Comment:BAL- Right [place], [place] Interpretation and review of laboratory results Abnormal [place] Respiratory Culture Many Possible identification [place] Respiratory Culture Corynebacterium striatum Abnormal [place] Respiratory Culture Many Negative for PBP2a (MSSA). [place] Respiratory Culture Staphylococcus aureus Abnormal [place] Respiratory Culture Rare normal respiratory naomi. Abnormal [place] Test Performed by [employer] [facility], [address] [place] [id number] Specimen Source Comment:Sputum [facility] [place] ECHO Complete 2D W Doppler W Coloron 10-08-2019 Left ventricular Ejection fraction 61 [place], [place] LVEF MODALITY ECHO [place], [facility] Incoming Cardiology Results From [facility] - 10/08/2019 1:21 PM EDT TRANSTHORACIC ECHOCARDIOGRAM PATIENT: Charlie Nguyen STUDY DATE: 10/08/2019 : 1955 AGE: 64 HT/WT: 175.3 cm (69 122.5 kg in) (269.4 lb) GENDER: F BP: 116 / 65 LOCATION: [facility] PATIENT Inpatient [facility] STATUS: *ORDERING PHYSICIAN: * Rajendra Kim *READING PHYSICIAN: * [place], *EPIC APPLICATION COORDINATOR: * MD LIZETTE Hobbs -------- INDICATIONS: Hypoxia. [...] Edmar Atkinson MD 10/08/2019 13:21 Prior Signatures: [place] TRANSTHORACIC ECHOCARDIOGRAM PATIENT: Charlie Nguyen STUDY DATE: 10/08/2019 : 1955 AGE: 64 HT/WT: 175.3 cm (69 122.5 kg in) (269.4 lb) GENDER: F BP: 116 / 65 LOCATION: [facility] PATIENT Inpatient [facility] STATUS: *ORDERING PHYSICIAN: * Rajendra Kim *READING PHYSICIAN: * [place], ThelmaEPIC APPLICATION COORDINATOR: * Brandi Hyatt MD [facility] -------- INDICATIONS: Hypoxia. -------- CONCLUSIONS SUMMARY: 1. [...] Edmar Atkinson MD 10/08/2019 13:21 Prior Signatures: [facility]ENTER[facility] [employer] EKG 12 Leadon 10-08-2019 [facility] Test Date: 2019-10-07 Pat Name: Charlie Nguyen [facility]: 232 Gender: F Price Checker: GISELLE : 1955 Requested By: NICA iMapDataSCH Order Number: [id number] Reading MD: Denver Lantigua Measurements Intervals [place] Rate: 72 P: 35 FL: 180 QRS: 2 QRSD: 112 T: 17 QT: 420 QTc: 460 Interpretive Statements SINUS RHYTHM Compared to ECG 10/07/2019 07:55:13 No significant changes Electronically Signed On 10-08-2019 13:12:36 EDT by Denver Lantigua [facility], [facility] Incoming Cardiology Results From [facility] - 10/08/2019 1:13 PM EDT [facility] Test Date: 2019-10-07 Pat Name: Charlie Nguyen [facility] Room: 232 Gender: F Price Checker: GISELLE : 1955 Requested By: NICA iMapDataSCH Order Number: [id number] Reading MD: Denver Lantigua Measurements Intervals [place] Rate: 72 P: 35 FL: 180 QRS: 2 QRSD: 112 T: 17 QT: 420 QTc: 460 Interpretive Statements SINUS RHYTHM Compared to ECG 10/07/2019 07:55:13 No significant changes Electronically Signed On 10-08-2019 13:12:36 EDT by Denver Lantigua [facility] HospitalLegacy Consulting [facility] Development [facility] Hemoglobin and Hematocrit, B loodon 10-08-2019 Hematocrit (Bld) [Volume fraction] 34.3 % Low 35 - 47 % [facility] [place] Hemoglobin (Bld) [Mass/Vol] 11.4 g/dL Low 11.7 - 16 g/dL [facility] [employer] [place] Interpretation and review of laboratory results Abnormal [place] Test Performed by [facility], [address] [place], [place], [place] [id number] [place] [address] Hematocrit (Bld) [Volume fraction] 31.9 % Low 35 - 47 % [place] Hemoglobin (Bld) [Mass/Vol] 10.6 g/dL Low 11.7 - 16 g/dL [place] Interpretation and review of laboratory results Abnormal [place] Test Performed by [facility], [address] [place], [place], [place] [address] [place], [place] Magnesiumon 10-08-2019 Interpretation and review of laboratory results Abnormal [place] Magnesium [Mass/Vol] 1.3 mg/dL Low 1.6 - 2 .3 mg/dL [place], [place] Otheron 10-08-2019 Test Performed by [facility], [address] POCT Arterialon 10-08-2019 Base Excess, Arterial 0.8 mmol/L -3 - 3 mmol/L [place] HCO3, Arterial 24.2 mmol/L 21 - 25 mmol/L [place] Interpretation and review of laboratory results Abnormal [place] Oxygen saturation in Blood 93.9 % Low 95 - 100 % [place] pCO2, Arterial 33.7 mm[Hg] Low 35 - 45 mm[Hg] [place] pH, Arterial 7.464 High [place] pO2, Arterial 65.5 mm[Hg] Low 80 - 100 mm[Hg] [place] Sodium [Moles/Vol] 50 mmol/L [place], [place] Comment on above: Performed by [employer] ID : [id number] [place], [place] TCO2, Arterial 25.3 mmol/L 23 - 27 mmol/L [place] Test Performed by [facility], [address] Phosphoruson 10-08-2019 Phosphate [Mass/Vol] 2.8 mg/dL 2.5 - 4 .5 mg/dL [place] XR CHEST PORTABLEon 10-08-19 Patient Name: CHARLIE NGUYEN ---Diagnostic Radiology--- Exam Date/Time 10/08/2019 10:52:00 EDT Exam CR Chest Portable Ordering Physician ROMERO, MASNAKUL Accession Number [id number] CPT4 Codes 04456 () Reason For Exam central line placement [...] JEFFREY Transcribed Date and Time: 10/08/2019 11:13 [place] Rodol[place], [facility] Incoming Radiology Results From [facility] - 10/08/2019 11:13 AM EDT Patient Name: CHARLIE NGUYEN ---Diagnostic Radiology--- Exam Date/Time 10/08/2019 10:52:00 EDT Exam CR Chest Portable Ordering Physician DES ROMERO Accession Number [id number] CPT4 Codes 34427 () Reason For Exam central line placement [...] JEFFREY Transcribed Date and Time: 10/08/2019 11:13 [place] Basic Metabolic Panelon 05-0 Anion gap [Moles/Vol] 6 mmol/L [place] Calcium [Mass/Vol] 6.7 mg/dL Low 8.4 - 10. 4 mg/dL [place] Chloride [Moles/Vol] 108 mmol/L High 98 - 10 7 mmol/L [place] CO2 [Moles/Vol] 22 mmol/L 22 - 30 mmol/L [place] Creatinine [Mass/Vol] 0.42 mg/dL Low 0.52 - 1.25 mg/dL [place] EGFR IF NonAfrican Ecuadorean >60.0 >60 mL/min [place] Comment on above: Source- MDRD equatio n with creatinine calibration to IDMS(NKDEP) eGFR not recommended for drug dose adjustment GFR/1.73 sq M predicted among blacks MDRD (S/P/Bld) [Vol rate/Area] mL/min/{1.73_m2} >60 mL/min [place] Glucose [Mass/Vol] 103 mg/dL High 70 - 100 mg/dL [place] Interpretation and review of laboratory results Abnormal [place] Potassium [Moles/Vol] 3.3 mmol/L Low 3.5 - 5.1 mmol/L [place] Sodium [Moles/Vol] 136 mmol/L 135 - 145 mmol/L [place] Urea nitrogen [Mass/Vol] 17 mg/dL 7 - 20 mg/d L [place] Test Performed by [facility], [address], [place], [place] [address] [place], [place] Anion gap [Moles/Vol] 6 mmol/L [place] Calcium [Mass/Vol] 7.5 mg/dL Low 8.4 - 10. 4 mg/dL [place] Chloride [Moles/Vol] 106 mmol/L 98 - 10 7 mmol/L [place] CO2 [Moles/Vol] 25 mmol/L 22 - 30 mmol/L [place] Creatinine [Mass/Vol] 0.55 mg/dL 0.52 - 1.25 mg/dL [place] EGFR IF NonAfrican Ecuadorean >60.0 >60 mL/min [place] Comment on above: Source- MDRD equatio n with creatinine calibration to IDMS(NKDEP) eGFR not recommended for drug dose adjustment GFR/1.73 sq M predicted among blacks MDRD (S/P/Bld) [Vol rate/Area] mL/min/{1.73_m2} >60 mL/min [place] Glucose [Mass/Vol] 114 mg/dL High 70 - 100 mg/dL [place] Interpretation and review of laboratory results Abnormal [place] Potassium [Moles/Vol] 3.4 mmol/L Low 3.5 - 5.1 mmol/L [place] Sodium [Moles/Vol] 138 mmol/L 135 - 145 mmol/L [place] Urea nitrogen [Mass/Vol] 17 mg/dL 7 - 20 mg/d L [place] CBC Auto Differentialon 05-0 8-2019 Absolute Baso # 0.0 10*3/uL 0 - 0.2 10*3/uL [place] Absolute Neut # 8.6 10*3/uL High 1.8 - 7 10*3/uL [place] Basophils/100 WBC (Bld) 0.4 % 0 - 2 % [place] Eosinophils (Bld) [#/Vol] 0.2 10*3/uL 0 - 0.5 10*3/uL [place] Eosinophils/100 WBC (Bld) 1.7 % 1 - 6 % [place] Erythrocyte distribution width (RBC) [Ratio] 15.2 % High 11.5 - 14.5 % [place] Granulocytes/100 WBC (Bld) 78.3 % 40 - 80 % [place] Hematocrit (Bld) [Volume fraction] 34.1 % Low 35 - 47 % [place] Hemoglobin (Bld) [Mass/Vol] 11.3 g/dL Low 11.7 - 16 g/dL [place] Interpretation and review of laboratory results Abnormal [place] Lymphocytes (Bld) [#/Vol] 1.3 10*3/uL 1 - 4.3 10*3/uL [place] Lymphocytes/100 WBC (Bld) 11.8 % Low 20 - 40 % [place] MCH (RBC) [Entitic mass] 32.2 pg 26 - 34 pg [place] MCHC (RBC) [Mass/Vol] 33.2 % 32 - 36 % [place] MCV (RBC) [Entitic vol] 96.9 fL 79 - 98 fL [place], [place] Monocytes (Bld) [#/Vol] 0.9 10*3/uL High 0 - 0.8 10*3/uL [place], [place] Monocytes/100 WBC (Bld) 7.8 % 2 - 10 % [place], [place] Platelet mean volume (Bld) [Entitic vol] 8.8 fL 7.4 - 10.4 fL [place] Platelets (Bld) [#/Vol] 204 10*3/uL 140 - 440 10*3/uL [place] RBC (Bld) [#/Vol] 3.52 10*6/uL Low 3.8 - 5.2 10*6/uL [place] WBC (Bld) [#/Vol] 11.0 10*3/uL High 3.6 - 10.7 10*3/uL [place] Test Performed by [employer] [facility], [address] [place] [id number] [facility], [place] EKG 12 Leadon 10-07-2019 [facility] Test Date: 2019-10-06 Pat Name: Charlie Nguyen Department: 2AHICU Room: 232 Gender: F Price Checker: RE : 1955 Requested By: NICA CANDELARIA Order Number: [id number] Reading MD: Kurtis Urbina Measurements Intervals [place] Rate: 73 P: 35 FL: 168 QRS: 17 QRSD: 104 T: 42 QT: 400 QTc: 441 Interpretive Statements SINUS RHYTHM mildly widened QRS complex VENTRICULAR PREMATURE COMPLEX Electronically Signed On 10-07-2019 13:02:46 EDT by Kurtis Urbina [facility], [facility] Incoming Cardiology Results From [facility] - 10/07/2019 1:03 PM EDT [facility] Test Date: 2019-10-06 Pat Name: Charlie Nguyen [facility] Gender: F Price Checker: RE : 1955 Requested By: NICA ISABELSCH Order Number: [id number] Reading MD: Kurtis Urbina Measurements Intervals [place] Rate: 73 P: 35 FL: 168 QRS: 17 QRSD: 104 T: 42 QT: 400 QTc: 441 Interpretive Statements SINUS RHYTHM mildly widened QRS complex VENTRICULAR PREMATURE COMPLEX Electronically Signed On 10-07-2019 13:02:46 EDT by Kurtis Urbina [facility], [facility] Incoming Cardiology Results From [facility] - 10/07/2019 12:57 PM EDT [facility] Test Date: 2019-10-05 Pat Name: Charlie Nguyen Department: 03 Room: 232 Gender: F Price Checker: [place] : 1955 Requested By: NICA BOTSCH Order Number: [id number] Reading MD: Kurtis Urbina Measurements Intervals [place] Rate: 70 P: 50 FL: 164 QRS: 29 QRSD: 106 T: 44 QT: 388 QTc: 419 Interpretive Statements SINUS RHYTHM VENTRICULAR TRIGEMINY BORDERLINE INTRAVENTRICULAR CONDUCTION DELAY Electronically Signed On 10-07-2019 12:56:39 EDT by Kurtis Kayjaida [facility] Test Date: 2019-10-05 Pat Name: Charlie Hicksell Department: 03 Room: 232 Gender: F Price Checker: [place] : 1955 Requested By: NICA ISABELSCH Order Number: [id number] Reading MD: Kurtis Urbina Measurements Intervals [place] Rate: 70 P: 50 FL: 164 QRS: 29 QRSD: 106 T: 44 QT: 388 QTc: 419 Interpretive Statements SINUS RHYTHM VENTRICULAR TRIGEMINY BORDERLINE INTRAVENTRICULAR CONDUCTION DELAY Electronically Signed On 10-07-2019 12:56:39 EDT by Kurtis Petit EdGLOBALBASED TECHNOLOGIESjaida [facility], [facility] Incoming Cardiology Results From [facility] - 10/07/2019 12:37 PM EDT [facility] Test Date: 2019-10-05 Pat Name: Charlie Patrick Department: 2[facility] Room: 232 Gender: F Price Checker: RE : 1955 Requested By: NICA BOTSCH Order Number: [id number] Reading MD: Kurtis Urbina Measurements Intervals [place] Rate: 115 P: 41 FL: 168 QRS: 4 QRSD: 104 T: 56 QT: 320 QTc: 443 Interpretive Statements SINUS TACHYCARDIA nonspecific intraventricular conduction delay BORDERLINE R WAVE PROGRESSION, ANTERIOR LEADS Electronically Signed On 10-07-2019 12:36:21 EDT by Kurtis WardGLOBALBASED TECHNOLOGIESjaida [facility] Test Date: 2019-10-05 Pat Name: Charlie Nguyen [facility] 232 Gender: F Price Checker: RE : 1955 Requested By: NICA BOTSCH Order Number: [id number] Reading MD: Kurtis Urbina Measurements Intervals [place] Rate: 115 P: 41 FL: 168 QRS: 4 QRSD: 104 T: 56 QT: 320 QTc: 443 Interpretive Statements SINUS TACHYCARDIA nonspecific intraventricular conduction delay BORDERLINE R WAVE PROGRESSION, ANTERIOR LEADS Electronically Signed On 10-07-2019 12:36:21 EDT by Kurtis Urbina [facility] Test Date: 2019-10-06 Pat Name: Charlie Nguyen [facility]: 232 Gender: F Price Checker: GISELLE : 1955 Requested By: NICA BOTSCH Order Number: [id number] Reading MD: Tara Mari Measurements Intervals [place] Rate: 68 P: 32 FL: 180 QRS: 0 QRSD: 104 T: 16 QT: 432 QTc: 460 Interpretive Statements SINUS RHYTHM Compared to ECG 10/06/2019 07:54:36 Ventricular premature complex(es) no longer present Electronically Signed On 10-07-2019 12:16:42 EDT by [facility], [facility] Incoming [facility] 10/07/2019 12:17 PM EDT [facility] Test Date: 2019-10-06 Pat Name: Charlie Nguyen Department: [facility] Room: 232 Gender: F Price Checker: GISELLE : 1955 Requested By: NICA iMapDataSCH Order Number: [id number] Reading MD: Tara Kamaljit Measurements Intervals [place] Rate: 68 P: 32 FL: 180 QRS: 0 QRSD: 104 T: 16 QT: 432 QTc: 460 Interpretive Statements SINUS RHYTHM Compared to ECG 10/06/2019 07:54:36 Ventricular premature complex(es) no longer present Electronically Signed On 10-07-2019 12:16:42 EDT by [facility] Kamaljit [employer] [facility], [facility] Incoming Cardiology [facility] - 10/07/2019 12:13 PM EDT [facility] Test Date: 2019-10-07 Pat Name: Charlie Nguyen Department: [facility] Room: 232 Gender: F Price Checker: VANESSA : 1955 Requested By: NICA BOTSCH Order Number: [id number] Reading MD: Tara Kamaljit Measurements Intervals [place] Rate: 66 P: 57 FL: 176 QRS: 6 QRSD: 108 T: 18 QT: 444 QTc: 466 Interpretive Statements SINUS RHYTHM BORDERLINE INTRAVENTRICULAR CONDUCTION DELAY Compared to ECG 10/06/2019 20:43:01 No significant changes Electronically Signed On 10-07-2019 12:12:42 EDT by [facility] Test Date: 2019-10-07 Pat Name: Charlie Nguyen Department: [facility] Room: 232 Gender: F Price Checker: VANESSA : 1955 Requested By: NICA CANDELARIA Order Number: [id number] Reading MD: Tara Mari Measurements Intervals [place] Rate: 66 P: 57 FL: 176 QRS: 6 QRSD: 108 T: 18 QT: 444 QTc: 466 Interpretive Statements SINUS RHYTHM BORDERLINE INTRAVENTRICULAR CONDUCTION DELAY Compared to ECG 10/06/2019 20:43:01 No significant changes Electronically Signed On 10-07-2019 12:12:42 EDT by [facility] Test Date: 2019-10-03 Pat Name: Charlie Nguyen Department: 3 Room: 232 Gender: F Price Checker: GISELLE : 1955 Requested By: RAJENDRA KIM Order Number: [id number] Reading MD: Kurtis Hi Measurements Intervals [place] Rate: 103 P: 7 FL: 160 QRS: -7 QRSD: 108 T: 222 QT: 364 QTc: 477 Interpretive Statements SINUS TACHYCARDIA BORDERLINE INTRAVENTRICULAR CONDUCTION DELAY NONSPECIFIC T ABNORMALITIES, INFERIOR LEADS Compared to ECG 10/03/2019 07:51:05 T-wave abnormality now present Sinus rhythm no longer present Left ventricular hypertrophy no longer present Electronically Signed On 10-07-2019 11:54:11 EDT by Kurtisenma Hi [facility] Incoming Cardiology Results From [facility] - 10/07/2019 11:55 AM EDT [facility] Test Date: 2019-10-03 Pat Name: Charlie Nguyen Department: 3 Room: 232 Gender: F Price Checker: GISELLE : 1955 Requested By: RAJENDRA KIM Order Number: [id number] Reading MD: Kurtis Hi Measurements Intervals [place] Rate: 103 P: 7 FL: 160 QRS: -7 QRSD: 108 T: 222 QT: 364 QTc: 477 Interpretive Statements SINUS TACHYCARDIA BORDERLINE INTRAVENTRICULAR CONDUCTION DELAY NONSPECIFIC T ABNORMALITIES, INFERIOR LEADS Compared to ECG 10/03/2019 07:51:05 T-wave abnormality now present Sinus rhythm no longer present Left ventricular hypertrophy no longer present Electronically Signed On 10-07-2019 11:54:11 EDT by Kurtis [place] Magnesiumon 10-07-2019 Magnesium [Mass/Vol] 1.7 mg/dL 1.6 - 2 .3 mg/dL [place] Otheron 10-07-2019 Test Performed by [facility], [address] [place], [place], [place] [id number] [place] [address] POCT Arterialon 10-07-2019 Base Excess, Arterial 0.1 mmol/L -3 - 3 mmol/L [place] HCO3, Arterial 23.3 mmol/L 21 - 25 mmol/L [place] Interpretation and review of laboratory results Abnormal [place] Oxygen saturation in Blood 95.1 % 95 - 100 % [place] pCO2, Arterial 32.6 mm[Hg] Low 35 - 45 mm[Hg] [place] pH, Arterial 7.462 High [place] pO2, Arterial 70.7 mm[Hg] Low 80 - 100 mm[Hg] [place] Sodium [Moles/Vol] 50 mmol/L [place] Comment on above: Performed by CLIA ID : [id number] [place], [place] TCO2, Arterial 24.3 mmol/L 23 - 27 mmol/L [place] Test Performed by [facility], [address] [place], [address] Phosphoruson 10-07-2019 Phosphate [Mass/Vol] 3.0 mg/dL 2.5 - 4 .5 mg/dL [place] Add On Lab Teston 10-06-2019 Sodium [Moles/Vol] Accepted [place] Comment on above: Specimen available & acceptable for analysis. Test Performed by [facility], [address], [place], [place] [address] [place] [address] Basic Metabolic Panelon Anion gap [Moles/Vol] 6 mmol/L [place] Calcium [Mass/Vol] 7.5 mg/dL Low 8.4 - 10. 4 mg/dL [place] Chloride [Moles/Vol] 105 mmol/L 98 - 10 7 mmol/L [place] CO2 [Moles/Vol] 26 mmol/L 22 - 30 mmol/L [place] Creatinine [Mass/Vol] 0.58 mg/dL 0.52 - 1.25 mg/dL [place] EGFR IF NonAfrican Ecuadorean >60.0 >60 mL/min [place] Comment on above: Source- MDRD equatio n with creatinine calibration to IDMS(NKDEP) eGFR not recommended for drug dose adjustment GFR/1.73 sq M predicted among blacks MDRD (S/P/Bld) [Vol rate/Area] mL/min/{1.73_m2} >60 mL/min [place] Glucose [Mass/Vol] 85 mg/dL 70 - 100 mg/dL [place] Interpretation and review of laboratory results Abnormal [place] Potassium [Moles/Vol] 3.8 mmol/L 3.5 - 5.1 mmol/L [place] Sodium [Moles/Vol] 137 mmol/L 135 - 145 mmol/L [place] Urea nitrogen [Mass/Vol] 17 mg/dL 7 - 20 mg/d L [place] Test Performed by [facility], [address] [place] [address] [place] Anion gap [Moles/Vol] 7 mmol/L [place] Calcium [Mass/Vol] 7.7 mg/dL Low 8.4 - 10. 4 mg/dL [place] Chloride [Moles/Vol] 104 mmol/L 98 - 10 7 mmol/L [place] CO2 [Moles/Vol] 26 mmol/L 22 - 30 mmol/L [place] Creatinine [Mass/Vol] 0.55 mg/dL 0.52 - 1.25 mg/dL [place] EGFR IF NonAfrican Ecuadorean >60.0 >60 mL/min [place] Comment on above: Source- MDRD equatio n with creatinine calibration to IDMS(NKDEP) eGFR not recommended for drug dose adjustment GFR/1.73 sq M predicted among blacks MDRD (S/P/Bld) [Vol rate/Area] mL/min/{1.73_m2} >60 mL/min [place] Glucose [Mass/Vol] 89 mg/dL 70 - 100 mg/dL [place] Interpretation and review of laboratory results Abnormal [place] Potassium [Moles/Vol] 4.0 mmol/L 3.5 - 5.1 mmol/L [place] Sodium [Moles/Vol] 137 mmol/L 135 - 145 mmol/L [place] Urea nitrogen [Mass/Vol] 18 mg/dL 7 - 20 mg/d L [place] Test Performed by [email or web address], [address] [place] [address] [place], [place] CBC Auto Differentialon 05-0 Erythrocyte distribution width (RBC) [Ratio] 15.3 % High 11.5 - 14.5 % [place] Hematocrit (Bld) [Volume fraction] 34.5 % Low 35 - 47 % [place] Hemoglobin (Bld) [Mass/Vol] 11.2 g/dL Low 11.7 - 16 g/dL [place] Interpretation and review of laboratory results Abnormal [place] MCH (RBC) [Entitic mass] 31.7 pg 26 - 34 pg [place] MCHC (RBC) [Mass/Vol] 32.4 % 32 - 36 % [place] MCV (RBC) [Entitic vol] 97.8 fL 79 - 98 fL [place], [place] Platelet mean volume (Bld) [Entitic vol] 8.9 fL 7.4 - 10.4 fL [place] Platelets (Bld) [#/Vol] 146 10*3/uL 140 - 440 10*3/uL [place] RBC (Bld) [#/Vol] 3.53 10*6/uL Low 3.8 - 5.2 10*6/uL [place] WBC (Bld) [#/Vol] 11.6 10*3/uL High 3.6 - 10.7 10*3/uL [facility], [place] Test Performed by [facility], [address], [place], [place] [address] [place] Gram Stainon 10-06-2019 INR Coag (Bld) [Relative time] Many polymorphonuclear cells/lpf. Rare epithelial cells/lpf. Rare gram positive cocci. [place] Test Performed by [employer] [facility], [address] [place] [id number] Specimen Source Comment:BAL- Right [place] Magnesiumon 10-06-2019 Magnesium [Mass/Vol] 1.8 mg/dL 1.6 - 2 .3 mg/dL [place] Test Performed by [facility], [address], [place], [place] [address] [place], [place] Manual Differentialon 2019 Absolute Baso # 0.0 10*3/uL 0 - 0.2 10*3/uL [place] Absolute Eos # 0.2 10*3/uL 0 - 0.5 10*3/uL [place] Absolute Lymph # 0.9 10*3/uL Low 1.1 - 4.5 10*3/uL [facility], [place] Absolute Prowers # 0.3 10*3/uL 0.2 - 1.1 10*3/uL [facility], [place] Absolute Neut # 10.1 10*3/uL High 2.2 - 8.2 10*3/uL [place] Anisocytosis Ql (Bld) Slight [place] Bands 0 % 0 - 3 % [place] Basophils 0 % 0 - 2 % [place] Eosinophils 2 % 1 - 6 % [place] Interpretation and review of laboratory results Abnormal [place] Lymphocytes 8 % Low 20 - 40 % [place] Macrocytosis Slight [place] Monocytes 3 % 2 - 10 % [place] RBC morphology finding Nom (Bld) ABNORMAL [place] Seg Neutrophils 87 % High 40 - 80 % [facility], [place] TOTAL CELLS COUNTED 100 [facility]- [place] Test Performed by [facility], [address] [place] [address] [facility] POCT Arterialon 10-06-2019 Base Excess, Arterial 0.3 mmol/L -3 - 3 mmol/L [facility] HCO3, Arterial 23.1 mmol/L 21 - 25 mmol/L [facility] Interpretation and review of laboratory results Abnormal [facility], [place] Oxygen saturation in Blood 94.8 % Low 95 - 100 % [facility] pCO2, Arterial 30.9 mm[Hg] Low 35 - 45 mm[Hg] [facility] pH, Arterial 7.482 High [facility] [place] pO2, Arterial 67.6 mm[Hg] Low 80 - 100 mm[Hg] [facility] [place] Sodium [Moles/Vol] 50 mmol/L [facility] [place] Comment on above: Performed by CLIA ID : [id number] [place] TCO2, Arterial 24.1 mmol/L 23 - 27 mmol/L [facility] [place] Test Performed by [facility] [employer] [facility], [address], [place], [place] [address] [facility] [place] Base Excess, Arterial 3.2 mmol/L High -3 - 3 mmol/L [facility] HCO3, Arterial 27.1 mmol/L High 21 - 25 mmol/L [facility] [place] Interpretation and review of laboratory results Abnormal [facility], [place] Oxygen saturation in Blood 92.6 % Low 95 - 100 % [facility] pCO2, Arterial 38.1 mm[Hg] 35 - 45 mm[Hg] [facility] pH, Arterial 7.460 High [facility] [place] [facility] [place] pO2, Arterial 62.0 mm[Hg] Low 80 - 100 mm[Hg] [facility] Sodium [Moles/Vol] 50 mmol/L [facility] [place] Comment on above: Performed by CLIA ID : [id number] [place] TCO2, Arterial 28.3 mmol/L High 23 - 27 mmol/L [facility] Test Performed by [facility], [address], [place], [place] [address] [place], [place] RENAL + LIVER PROFon 020 Albumin [Mass/Vol] 2.8 g/dL Low 3.5 - 5 g/dL [place] ALP [Catalytic activity/Vol] 132 U/L High 38 - 126 U/L [place] ALT [Catalytic activity/Vol] 14 U/L 0 - 34 U/L [place] Comment on above: The ALT test is perf ormed by an updated assay method. Please note that the reference intervals have been changed and are now sex specific. Anion gap [Moles/Vol] 6 mmol/L [place] AST [Catalytic activity/Vol] 26 U/L 15 - 46 U/L [place] Bilirubin Ql (U) 1.0 mg/dL 0.2 - 1.3 mg/dL [place] Bilirubin.direct [Mass/Vol] 0.0 mg/dL 0 - 0.3 mg/dL [place] Calcium [Mass/Vol] 7.8 mg/dL Low 8.4 - 10. 4 mg/dL [place] Chloride [Moles/Vol] 103 mmol/L 98 - 10 7 mmol/L [place] CO2 [Moles/Vol] 27 mmol/L 22 - 30 mmol/L [place] Creatinine [Mass/Vol] 0.56 mg/dL 0.52 - 1.25 mg/dL [place] EGFR IF NonAfrican Ecuadorean >60.0 >60 mL/min [place] Comment on above: Source- MDRD equatio n with creatinine calibration to IDMS(NKDEP) eGFR not recommended for drug dose adjustment GFR/1.73 sq M predicted among blacks MDRD (S/P/Bld) [Vol rate/Area] mL/min/{1.73_m2} >60 mL/min [place] Glucose [Mass/Vol] 99 mg/dL 70 - 100 mg/dL [place] Interpretation and review of laboratory results Abnormal [place] Phosphate [Mass/Vol] 2.8 mg/dL 2.5 - 4 .5 mg/dL [place] Potassium [Moles/Vol] 3.9 mmol/L 3.5 - 5.1 mmol/L [place] Protein [Mass/Vol] 6.2 g/dL Low 6.3 - 8.2 g/dL [place] Sodium [Moles/Vol] 136 mmol/L 135 - 145 mmol/L [place] Urea nitrogen [Mass/Vol] 17 mg/dL 7 - 20 mg/d L [place] Test Performed by [facility], [address], [place], [place] [address] [place] Add On Lab Teston 10-05-2019 Sodium [Moles/Vol] Accepted [place] Comment on above: Specimen available & acceptable for analysis. Test Performed by [facility], [address], [place], [place] [address] [place] Basic Metabolic Panelon Anion gap [Moles/Vol] 5 mmol/L [place] Calcium [Mass/Vol] 7.4 mg/dL Low 8.4 - 10. 4 mg/dL [place] Chloride [Moles/Vol] 104 mmol/L 98 - 10 7 mmol/L [place] CO2 [Moles/Vol] 27 mmol/L 22 - 30 mmol/L [place] Creatinine [Mass/Vol] 0.48 mg/dL Low 0.52 - 1.25 mg/dL [place] EGFR IF NonAfrican Ecuadorean >60.0 >60 mL/min [place] Comment on above: Source- MDRD equatio n with creatinine calibration to IDMS(NKDEP) eGFR not recommended for drug dose adjustment GFR/1.73 sq M predicted among blacks MDRD (S/P/Bld) [Vol rate/Area] mL/min/{1.73_m2} >60 mL/min [place] Glucose [Mass/Vol] 91 mg/dL 70 - 100 mg/dL [place] Interpretation and review of laboratory results Abnormal [place] Potassium [Moles/Vol] 3.6 mmol/L 3.5 - 5.1 mmol/L [facility], [place] Sodium [Moles/Vol] 135 mmol/L 135 - 145 mmol/L [facility], [place] Urea nitrogen [Mass/Vol] 15 mg/dL 7 - 20 mg/d L [place] Test Performed by [facility], [address], [place], [place] [address] [place] Anion gap [Moles/Vol] 4 mmol/L [facility], [place] Calcium [Mass/Vol] 6.0 mg/dL Low 8.4 - 10. 4 mg/dL [place] Chloride [Moles/Vol] 111 mmol/L High 98 - 10 7 mmol/L [facility], [place] CO2 [Moles/Vol] 24 mmol/L 22 - 30 mmol/L [place] Creatinine [Mass/Vol] 0.43 mg/dL Low 0.52 - 1.25 mg/dL [place] EGFR IF NonAfrican Ecuadorean >60.0 >60 mL/min [place] Comment on above: Source- MDRD equatio n with creatinine calibration to IDMS(NKDEP) eGFR not recommended for drug dose adjustment GFR/1.73 sq M predicted among blacks MDRD (S/P/Bld) [Vol rate/Area] mL/min/{1.73_m2} >60 mL/min [place] Glucose [Mass/Vol] 87 mg/dL 70 - 100 mg/dL [place] Interpretation and review of laboratory results Abnormal [place] Potassium [Moles/Vol] 3.5 mmol/L 3.5 - 5.1 mmol/L [facility], [place] Sodium [Moles/Vol] 138 mmol/L 135 - 145 mmol/L [facility], [place] Urea nitrogen [Mass/Vol] 13 mg/dL 7 - 20 mg/d L [place] Test Performed by [facility], [address], [place], [place] [address] [facility], [place] Anion gap [Moles/Vol] 4 mmol/L [facility], [place] Calcium [Mass/Vol] 6.3 mg/dL Low 8.4 - 10. 4 mg/dL [place] Chloride [Moles/Vol] 106 mmol/L 98 - 10 7 mmol/L [place] CO2 [Moles/Vol] 26 mmol/L 22 - 30 mmol/L [place] Creatinine [Mass/Vol] 0.47 mg/dL Low 0.52 - 1.25 mg/dL [place] EGFR IF NonAfrican Ecuadorean >60.0 >60 mL/min [place] Comment on above: Source- MDRD equatio n with creatinine calibration to IDMS(NKDEP) eGFR not recommended for drug dose adjustment GFR/1.73 sq M predicted among blacks MDRD (S/P/Bld) [Vol rate/Area] mL/min/{1.73_m2} >60 mL/min [place] Glucose [Mass/Vol] 93 mg/dL 70 - 100 mg/dL [place] Interpretation and review of laboratory results Abnormal [place] Potassium [Moles/Vol] 3.5 mmol/L 3.5 - 5.1 mmol/L [place] Sodium [Moles/Vol] 136 mmol/L 135 - 145 mmol/L [place] Urea nitrogen [Mass/Vol] 14 mg/dL 7 - 20 mg/d L [place] Test Performed by [facility], [address] [place], [place] [address] [place] CBC Auto Differentialon 050 Erythrocyte distribution width (RBC) [Ratio] 15.3 % High 11.5 - 14.5 % [place] Hematocrit (Bld) [Volume fraction] 33.3 % Low 35 - 47 % [place] Hemoglobin (Bld) [Mass/Vol] 10.5 g/dL Low 11.7 - 16 g/dL [place] Interpretation and review of laboratory results Abnormal [place] MCH (RBC) [Entitic mass] 31.1 pg 26 - 34 pg [place] MCHC (RBC) [Mass/Vol] 31.6 % Low 32 - 36 % [place] MCV (RBC) [Entitic vol] 98.5 fL High 79 - 98 fL [place] Platelet mean volume (Bld) [Entitic vol] 9.1 fL 7.4 - 10.4 fL [place] Platelets (Bld) [#/Vol] 131 10*3/uL Low 140 - 440 10*3/uL [place] RBC (Bld) [#/Vol] 3.38 10*6/uL Low 3.8 - 5.2 10*6/uL [place] WBC (Bld) [#/Vol] 11.1 10*3/uL High 3.6 - 10.7 10*3/uL [place] Test Performed by [facility], [address] [place], [place] [id number] [place] [address] CTA CHEST W WO CONTRASTon Patient Name: CHARLIE NGUYEN ---CT--- Exam Date/Time 10/05/2019 11:55:25 EDT Exam CTA Chest w/ + w/o Contrast Ordering Physician MD JUDY, [facility] Accession Number [id number] CPT4 Codes 42742 (), Q9967 (CT ISOVUE [id number] ML&1) Reason For Exam pulmonary emboli Report [...] DIANE Transcribed Date and Time: 10/05/2019 12:16 [place], [place] Rod[place]fo, [facility] Incoming Radiology Results From [facility] - 10/05/2019 12:17 PM EDT Patient Name: CHARLIE NGUYEN ---CT--- Exam Date/Time 10/05/2019 11:55:25 EDT Exam CTA Chest w/ + w/o Contrast Ordering Physician MD JUDY, RAJENDRA Accession Number [id number] CPT4 Codes 60212 (), Q9967 (CT ISOVUE [id number]/[id number] ML&1) Reason For Exam pulmonary emboli Report [...] DIANE Transcribed Date and Time: 10/05/2019 12:16 [place], [place] Calcium, Ionizedon 0 Interpretation and review of laboratory results Abnormal [place] Ionized Ca 3.50 mg/dL Low 4.3 - 5.2 mg/dL [place] pH (Bld) 7.42 [pH] [place] Test Performed by [facility], [address] [place] [address] EKG 12 Leadon 10-05-2019 [facility] Test Date: 2019-10-04 Pat Name: Charlie Nguyen [facility] Room: 232 Gender: F Price Checker: GISELLE : 1955 Requested By: NICA CANDELARIA Order Number: [id number] Reading MD: Aldair Chao Measurements Intervals [place] Rate: 99 P: 22 FL: 156 QRS: 5 QRSD: 100 T: 69 QT: 344 QTc: 442 Interpretive Statements SINUS RHYTHM BORDERLINE T WAVE ABNORMALITIES Compared to ECG 10/04/2019 08:40:28 Sinus tachycardia no longer present T-wave abnormality still present Electronically Signed On 10-05-2019 11:00:42 EDT by Aldair Zhanna [facility] Incoming Cardiology Results From [facility] - 10/05/2019 11:01 AM EDT [facility] Test Date: 2019-10-04 Pat Name: Charliesunny Nguyen Department: [facility] Room: 232 Gender: F Price Checker: GISELLE : 1955 Requested By: NICA CANDELARIA Order Number: [id number] Reading MD: Aldair Chao Measurements Intervals [place] Rate: 99 P: 22 FL: 156 QRS: 5 QRSD: 100 T: 69 QT: 344 QTc: 442 Interpretive Statements SINUS RHYTHM BORDERLINE T WAVE ABNORMALITIES Compared to ECG 10/04/2019 08:40:28 Sinus tachycardia no longer present T-wave abnormality still present Electronically Signed On 10-05-2019 11:00:42 EDT by Aldair [facility] Test Date: 2019-10-04 Pat Name: Charlie Nguyen Department: [facility] Room: 232 Gender: F Price Checker: OTONIEL : 1955 Requested By: NICA CANDELARIA Order Number: [id number] Reading MD: Aldair Chao Measurements Intervals [place] Rate: 105 P: 10 FL: 164 QRS: 0 QRSD: 102 T: 259 QT: 308 QTc: 408 Interpretive Statements SINUS TACHYCARDIA LATE PRECORDIAL R/S TRANSITION NONSPECIFIC T ABNORMALITIES, LATERAL LEADS Compared to ECG 10/03/2019 21:59:07 Ventricular premature complex(es) no longer present Myocardial infarct finding no longer present Possible ischemia no longer present T-wave abnormality still present Electronically Signed On 10-05-2019 10:59:16 EDT by [facility] Incoming Cardiology Results From [facility] - 10/05/2019 11:00 AM EDT [facility] Test Date: 2019-10-04 Pat Name: Charlie Nguyen Department: [facility] Room: 232 Gender: F Price Checker: OTONIEL : 1955 Requested By: NICA ISABELSCH Order Number: [id number] Reading MD: Aldair Chao Measurements Intervals [place] Rate: 105 P: 10 FL: 164 QRS: 0 QRSD: 102 T: 259 QT: 308 QTc: 408 Interpretive Statements SINUS TACHYCARDIA LATE PRECORDIAL R/S TRANSITION NONSPECIFIC T ABNORMALITIES, LATERAL LEADS Compared to ECG 10/03/2019 21:59:07 Ventricular premature complex(es) no longer present Myocardial infarct finding no longer present Possible ischemia no longer present T-wave abnormality still present Electronically Signed On 10-05-2019 10:59:16 EDT by Aldair Chao [facility], JAIDA Rodolfo, [facility] Incoming Cardiology Results From [facility] - 10/05/2019 10:11 AM EDT [facility] Test Date: 2019-10-03 Pat Name: Charlie Nguyen Department: [facility] Room: 232 Gender: F Price Checker: ? : 1955 Requested By: NICA CANDELARIA Order Number: [id number] Reading MD: Danny Lamb Measurements Intervals [place] Rate: 114 P: 10 FL: 168 QRS: -4 QRSD: 106 T: 202 QT: 316 QTc: 436 Interpretive Statements SINUS TACHYCARDIA MULTIFORM VENTRICULAR PREMATURE COMPLEXES CONSIDER ANTEROSEPTAL INFARCT ABNORMAL T, CONSIDER ISCHEMIA, LATERAL LEADS BASELINE WANDER IN LEAD(S) V4 Electronically Signed On 10-05-2019 10:10:38 EDT by [facility], JAIDA [facility] Test Date: 2019-10-03 Pat Name: Charlie Nguyen Department: [facility] Room: 232 Gender: F Price Checker: ? : 1955 Requested By: NICA ISABELSCH Order Number: [id number] Reading : Danny Lamb Measurements Intervals [place] Rate: 114 P: 10 FL: 168 QRS: -4 QRSD: 106 T: 202 QT: 316 QTc: 436 Interpretive Statements SINUS TACHYCARDIA MULTIFORM VENTRICULAR PREMATURE COMPLEXES CONSIDER ANTEROSEPTAL INFARCT ABNORMAL T, CONSIDER ISCHEMIA, LATERAL LEADS BASELINE WANDER IN LEAD(S) V4 Electronically Signed On 10-05-2019 10:10:38 EDT by [facility], JAIDA EKG 12 Lead - Chest Painon 0 10-05-2019 [place], [place] [facility] Incoming Cardiology Results From [facility] - 10/05/2019 9:42 AM EDT [facility] Test Date: 2019-10-03 Pat Name: Charlie Nguyen Department: 01 Room: 232 Gender: F Price Checker: OTONIEL : 1955 Requested By: LULI MORRIS Order Number: [id number] Reading MD: Danny Lamb Measurements Intervals [place] Rate: 79 P: 11 FL: 188 QRS: -22 QRSD: 108 T: 6 QT: 366 QTc: 420 Interpretive Statements SINUS RHYTHM LEFT VENTRICULAR HYPERTROPHY BASELINE WANDER IN LEAD(S) V4 CONSIDER PRIOR AWMI Electronically Signed On 10-05-2019 9:41:32 EDT by [place] [facility] Test Date: 2019-10-03 Pat Name: Charlie Nguyen Department: 01 Room: 232 Gender: F Price Checker: : 1955 Requested By: LULI MORRIS Order Number: [id number] Reading MD: Danny Lamb Measurements Intervals [place] Rate: 79 P: 11 FL: 188 QRS: -22 QRSD: 108 T: 6 QT: 366 QTc: 420 Interpretive Statements SINUS RHYTHM LEFT VENTRICULAR HYPERTROPHY BASELINE WANDER IN LEAD(S) V4 CONSIDER PRIOR AWMI Electronically Signed On 10-05-2019 9:41:32 EDT by Danny [place] Gram Stainon 10-05-2019 INR Coag (Bld) [Relative time] Many polymorphonuclear cells/lpf. Rare epithelial cells/lpf. Many gram positive cocci in pairs and chains. Moderate gram positive bacilli. Few gram negative bacilli. [place] Test Performed by [facility], [address] [place] [id number] Specimen Source Comment:Sputum [place], [place] Magnesiumon 10-05-2019 Magnesium [Mass/Vol] 1.7 mg/dL 1.6 - 2 .3 mg/dL [place] Manual Differentialon 2019 Absolute Baso # 0.0 10*3/uL 0 - 0.2 10*3/uL [place] Absolute Eos # 0.1 10*3/uL 0 - 0.5 10*3/uL [place] Absolute Lymph # 0.9 10*3/uL Low 1.1 - 4.5 10*3/uL [place] Absolute Prowers # 0.9 10*3/uL 0.2 - 1.1 10*3/uL [place] Absolute Neut # 9.2 10*3/uL High 2.2 - 8.2 10*3/uL [place] Anisocytosis Ql (Bld) Slight [facility], [place] Bands 0 % 0 - 3 % [place] Basophils 0 % 0 - 2 % [facility], [place] Eosinophils 1 % 1 - 6 % [place] Interpretation and review of laboratory results Abnormal [place] Lymphocytes 8 % Low 20 - 40 % [place] Monocytes 8 % 2 - 10 % [place] RBC morphology finding Nom (Bld) ABNORMAL [place] Seg Neutrophils 83 % High 40 - 80 % [place] TOTAL CELLS COUNTED 100 [place] Test Performed by [facility], [address] [place], [place] [address] [place] Otheron 10-05-2019 Test Performed by [facility], [address] [place], [place] [address] [place] POCT Arterialon 10-05-2019 Base Excess, Arterial 5.7 mmol/L High -3 - 3 mmol/L [place] HCO3, Arterial 29.9 mmol/L High 21 - 25 mmol/L [place] Interpretation and review of laboratory results Abnormal [place] Oxygen saturation in Blood 93.4 % Low 95 - 100 % [place] pCO2, Arterial 41.4 mm[Hg] 35 - 45 mm[Hg] [place] pH, Arterial 7.468 High [place] pO2, Arterial 64.5 mm[Hg] Low 80 - 100 mm[Hg] [place] Sodium [Moles/Vol] 50 mmol/L [place] Comment on above: Performed by LATASHA ID : [id number] [place], [place] TCO2, Arterial 31.2 mmol/L High 23 - 27 mmol/L [place] Test Performed by [facility], [address], [place], [place] [address] [place] Phosphoruson 10-05-2019 Phosphate [Mass/Vol] 2.5 mg/dL 2.5 - 4 .5 mg/dL [place] XR CHEST PORTABLEon 10-05-19 20 Rodolfo, [facility] Incoming Radiology Results From [facility] - 10/05/2019 6:13 AM EDT Patient Name: CHARLIE NGUYEN ---Diagnostic Radiology--- Exam Date/Time 10/05/2019 05:16:10 EDT Exam CR Chest Portable Ordering Physician BENJAMIN CANDELARIA ALEXANDER Accession Number [id number] CPT4 Codes 85906 () Reason For Exam respiratory failure Report [...] ALFRED Transcribed Date and Time: 10/05/2019 6:12 [place], [place] Patient Name: CHARLIE NGUYEN ---Diagnostic Radiology--- Exam Date/Time 10/05/2019 05:16:10 EDT Exam CR Chest Portable Ordering Physician BENJAMIN CANDELARIA ALEXANDER Accession Number [id number] CPT4 Codes 56339 () Reason For Exam respiratory failure Report [...] ALFRED Transcribed Date and Time: 10/05/2019 6:12 [place], [place] Add On Lab Teston 10-04-2019 Sodium [Moles/Vol] Accepted [place], [place] Comment on above: Specimen available & acceptable for analysis. Test [facility] by [email or web address], [address] [place], [place] [address] [place] Basic Metabolic Panelon Anion gap [Moles/Vol] 5 mmol/L [place] Calcium [Mass/Vol] 7.7 mg/dL Low 8.4 - 10. 4 mg/dL [place] Chloride [Moles/Vol] 97 mmol/L Low 98 - 10 7 mmol/L [place] CO2 [Moles/Vol] 34 mmol/L High 22 - 30 mmol/L [place] Creatinine [Mass/Vol] 0.61 mg/dL 0.52 - 1.25 mg/dL [place] EGFR IF NonAfrican Ecuadorean >60.0 >60 mL/min [place] Comment on above: Source- MDRD equatio n with creatinine calibration to IDMS(NKDEP) eGFR not recommended for drug dose adjustment GFR/1.73 sq M predicted among blacks MDRD (S/P/Bld) [Vol rate/Area] mL/min/{1.73_m2} >60 mL/min [place] Glucose [Mass/Vol] 104 mg/dL High 70 - 100 mg/dL [place] Interpretation and review of laboratory results Abnormal [place] Potassium [Moles/Vol] 3.4 mmol/L Low 3.5 - 5.1 mmol/L [place] Sodium [Moles/Vol] 135 mmol/L 135 - 145 mmol/L [place] Urea nitrogen [Mass/Vol] 16 mg/dL 7 - 20 mg/d L [place] Test Performed by [facility], [facility] [address] [place], [place] [address] [place] Anion gap [Moles/Vol] 10 mmol/L [place] Calcium [Mass/Vol] 8.3 mg/dL Low 8.4 - 10. 4 mg/dL [place] Chloride [Moles/Vol] 95 mmol/L Low 98 - 10 7 mmol/L [place] CO2 [Moles/Vol] 34 mmol/L High 22 - 30 mmol/L [place] Creatinine [Mass/Vol] 0.68 mg/dL 0.52 - 1.25 mg/dL [place] EGFR IF NonAfrican Ecuadorean >60.0 >60 mL/min [place] Comment on above: Source- MDRD equatio n with creatinine calibration to IDMS(NKDEP) eGFR not recommended for drug dose adjustment GFR/1.73 sq M predicted among blacks MDRD (S/P/Bld) [Vol rate/Area] mL/min/{1.73_m2} >60 mL/min [place] Glucose [Mass/Vol] 108 mg/dL High 70 - 100 mg/dL [place] Interpretation and review of laboratory results Abnormal [place] Potassium [Moles/Vol] 3.6 mmol/L 3.5 - 5.1 mmol/L [place] Sodium [Moles/Vol] 138 mmol/L 135 - 145 mmol/L [place] Urea nitrogen [Mass/Vol] 17 mg/dL 7 - 20 mg/d L [place] Test Performed by [facility], [address], [place], [place] [address] [place] Basic Metabolic Panel w/ Ref balaji to MGon 10-04-2019 Anion gap [Moles/Vol] 6 mmol/L [place] Calcium [Mass/Vol] 6.7 mg/dL Low 8.4 - 10. 4 mg/dL [place] Chloride [Moles/Vol] 100 mmol/L 98 - 10 7 mmol/L [place] CO2 [Moles/Vol] 31 mmol/L High 22 - 30 mmol/L [place] Creatinine [Mass/Vol] 0.58 mg/dL 0.52 - 1.25 mg/dL [place] EGFR IF NonAfrican Ecuadorean >60.0 >60 mL/min [place] Comment on above: Source- MDRD equatio n with creatinine calibration to IDMS(NKDEP) eGFR not recommended for drug dose adjustment GFR/1.73 sq M predicted among blacks MDRD (S/P/Bld) [Vol rate/Area] mL/min/{1.73_m2} >60 mL/min [place] Glucose [Mass/Vol] 116 mg/dL High 70 - 100 mg/dL [place] Interpretation and review of laboratory results Abnormal [place] Potassium [Moles/Vol] 3.3 mmol/L Low 3.5 - 5.1 mmol/L [place] Sodium [Moles/Vol] 137 mmol/L 135 - 145 mmol/L [place] Urea nitrogen [Mass/Vol] 18 mg/dL 7 - 20 mg/d L [place], [place] CBC auto differentialon Absolute Baso # 0.1 10*3/uL 0 - 0.2 10*3/uL [place] Absolute Neut # 11.6 10*3/uL High 1.8 - 7 10*3/uL [place] Basophils/100 WBC (Bld) 0.4 % 0 - 2 % [facility] [place], [place] Eosinophils (Bld) [#/Vol] 0.0 10*3/uL 0 - 0.5 10*3/uL [place] Eosinophils/100 WBC (Bld) 0.0 % Low 1 - 6 % [place] Erythrocyte distribution width (RBC) [Ratio] 15.5 % High 11.5 - 14.5 % [place] Granulocytes/100 WBC (Bld) 86.9 % High 40 - 80 % [place] Hematocrit (Bld) [Volume fraction] 37.4 % 35 - 47 % [place] Hemoglobin (Bld) [Mass/Vol] 12.2 g/dL 11.7 - 16 g/dL [place] Interpretation and review of laboratory results Abnormal [place] Lymphocytes (Bld) [#/Vol] 0.8 10*3/uL Low 1 - 4.3 10*3/uL [place] Lymphocytes/100 WBC (Bld) 6.2 % Low 20 - 40 % [place] MCH (RBC) [Entitic mass] 31.7 pg 26 - 34 pg [place] MCHC (RBC) [Mass/Vol] 32.6 % 32 - 36 % [place] MCV (RBC) [Entitic vol] 97.1 fL 79 - 98 fL [place], [place] Monocytes (Bld) [#/Vol] 0.9 10*3/uL High 0 - 0.8 10*3/uL [place], [place] Monocytes/100 WBC (Bld) 6.5 % 2 - 10 % [place], [place] Platelet mean volume (Bld) [Entitic vol] 9.0 fL 7.4 - 10.4 fL [place] Platelets (Bld) [#/Vol] 131 10*3/uL Low 140 - 440 10*3/uL [place] RBC (Bld) [#/Vol] 3.85 10*6/uL 3.8 - 5.2 10*6/uL [place] WBC (Bld) [#/Vol] 13.3 10*3/uL High 3.6 - 10.7 10*3/uL [place] Test Performed by [facility], [facility] [address] [place], [place] [address] [place] COVID-19on 10-04-2019 SARS-CoV-2 Not Detected Expected Result: Not Detected _ Real-time, RT-PCR performed on the [employer] System by the [facility] Microbiology Service. Negative results do not preclude SARS-CoV-2 infection and should not be used as the sole basis for treatment or other patient management decisions. This assay was developed by [employer] and distributed under an Emergency Use Authorization (EUA) granted by the FDA for the qualitative detection of SARS-CoV-2 nucleic acid. [place] Test Performed by [facility], [address] [place] [address] [place] Magnesiumon 10-04-2019 Magnesium [Mass/Vol] 1.6 mg/dL 1.6 - 2 .3 mg/dL [place] Otheron 10-04-2019 Test Performed by [facility], [facility] [address] [place], [place] [address] [place] POCT Arterialon 10-04-2019 Base Excess, Arterial 6.5 mmol/L High -3 - 3 mmol/L [place] HCO3, Arterial 31.5 mmol/L High 21 - 25 mmol/L [place] Interpretation and review of laboratory results Abnormal [place] Oxygen saturation in Blood 94.1 % Low 95 - 100 % [place] pCO2, Arterial 45.4 mm[Hg] High 35 - 45 mm[Hg] [place] pH, Arterial 7.448 [place] pO2, Arterial 69.1 mm[Hg] Low 80 - 100 mm[Hg] [place] Sodium [Moles/Vol] 60 mmol/L [place], [place] Comment on above: Performed by CLIA ID : [id number] [place], [place] TCO2, Arterial 32.9 mmol/L High 23 - 27 mmol/L [place] Test Performed by [facility], [address] [place], [place] [id number] [place] [address] Base Excess, Arterial 6.8 mmol/L High -3 - 3 mmol/L [place] HCO3, Arterial 31.7 mmol/L High 21 - 25 mmol/L [place] Interpretation and review of laboratory results Abnormal [place] Oxygen saturation in Blood 95.1 % 95 - 100 % [place] pCO2, Arterial 45.0 mm[Hg] 35 - 45 mm[Hg] [place] pH, Arterial 7.456 High [place] pO2, Arterial 73.2 mm[Hg] Low 80 - 100 mm[Hg] [place] Sodium [Moles/Vol] 60 mmol/L [place] Comment on above: Performed by [employer] ID : [id number] [place], [place] TCO2, Arterial 33 mmol/L High 23 - 27 mmol/L [place] Test Performed by [facility], [address] [place], [place] [id number] [place] [address] Phosphoruson 10-04-2019 Phosphate [Mass/Vol] 3.0 mg/dL 2.5 - 4 .5 mg/dL [place] Procalcitoninon 10-04-2019 Interpretation and review of laboratory results Abnormal [place] Procalcitonin 0.6 ng/mL Abnormal <0.10 [place] Sodium [Moles/Vol] See Below [place], [place] Comment on above: PCT <0.50 = Low risk of severe sepsis and/or septic shock. PCT >2.00 = High risk of severe sepsis and/or septic shock. Test Performed by [facility], [address] [place] [address] [place] ACETAMINOPHEN LEVELon 2019 Acetaminophen [Mass/Vol] <10.0 10 - 30 ug/mL [place] Acetaminophen Levelon 2019 Acetaminophen [Mass/Vol] <10.0 10 - 30 ug/mL [place] Test Performed by [facility], [address] [place], [place] [address] [place] Basic Metabolic Panelon 05-0 Anion gap [Moles/Vol] 9 mmol/L [place] Calcium [Mass/Vol] 7.7 mg/dL Low 8.4 - 10. 4 mg/dL [place] Chloride [Moles/Vol] 92 mmol/L Low 98 - 10 7 mmol/L [place] CO2 [Moles/Vol] 34 mmol/L High 22 - 30 mmol/L [place] Creatinine [Mass/Vol] 0.53 mg/dL 0.52 - 1.25 mg/dL [place] EGFR IF NonAfrican Ecuadorean >60.0 >60 mL/min [place] Comment on above: Source- MDRD equatio n with creatinine calibration to IDMS(NKDEP) eGFR not recommended for drug dose adjustment GFR/1.73 sq M predicted among blacks MDRD (S/P/Bld) [Vol rate/Area] mL/min/{1.73_m2} >60 mL/min [place] Glucose [Mass/Vol] 198 mg/dL High 70 - 100 mg/dL [place] Interpretation and review of laboratory results Abnormal [place] Potassium [Moles/Vol] 2.9 mmol/L Low 3.5 - 5.1 mmol/L [place] Sodium [Moles/Vol] 135 mmol/L 135 - 145 mmol/L [place] Urea nitrogen [Mass/Vol] 23 mg/dL High 7 - 20 mg/d L [place] Test Performed by [email or web address], [address], [place], [place] [address] [place] Anion gap [Moles/Vol] 10 mmol/L [place] Calcium [Mass/Vol] 8.4 mg/dL 8.4 - 10. 4 mg/dL [place] Chloride [Moles/Vol] 97 mmol/L Low 98 - 10 7 mmol/L [place] CO2 [Moles/Vol] 32 mmol/L High 22 - 30 mmol/L [place] Creatinine [Mass/Vol] 0.73 mg/dL 0.52 - 1.25 mg/dL [place] EGFR IF NonAfrican Ecuadorean >60.0 >60 mL/min [place] Comment on above: Source- MDRD equatio n with creatinine calibration to IDMS(NKDEP) eGFR not recommended for drug dose adjustment GFR/1.73 sq M predicted among blacks MDRD (S/P/Bld) [Vol rate/Area] mL/min/{1.73_m2} >60 mL/min [place] Glucose [Mass/Vol] 103 mg/dL High 70 - 100 mg/dL [place] Interpretation and review of laboratory results Abnormal [place] Potassium [Moles/Vol] 4.0 mmol/L 3.5 - 5.1 mmol/L [place] Sodium [Moles/Vol] 139 mmol/L 135 - 145 mmol/L [place] Urea nitrogen [Mass/Vol] 34 mg/dL High 7 - 20 mg/d L [place] Test Performed by [facility], [address] [place], [place] [address] [place] Brain Natriuretic Peptideon 10-03-2019 Interpretation and review of laboratory results Abnormal [place] Natriuretic peptide B (Bld) [Mass/Vol] 222 pg/mL High 0 - 125 pg/mL [place] CKon 10-03-2019 Total CK 60 U/L 30 - 170 U/L [place] Cervical Spine WO Contras ton 10-03-2019 [facility], [facility] Incoming Radiology Results From [facility] - 10/03/2019 11:09 AM EDT Patient Name: CHARLIE NGUYEN ---CT--- Exam Date/Time 10/03/2019 10:54:[address] Spine Cervical w/o Contrast Ordering Physician DO MORRIS DAVID J Accession Number [id number] CPT4 Codes 50107 () Reason For Exam Suspected overdose Report [...] KEVIN Transcribed Date and Time: 10/03/2019 11:09 [place] Patient Name: CHARLIE NGUYEN ---CT--- Exam Date/Time 10/03/2019 10:54:[address] Spine Cervical w/o Contrast Ordering Physician DO MORRIS DAVID J Accession Number [id number] CPT4 Codes 30707 () Reason For Exam Suspected overdose Report [...] KEVIN Transcribed Date and Time: 10/03/2019 11:09 [place] CT Head WO Contraston 2019 Patient Name: CHARLIE NGUYEN ---CT--- Exam Date/Time 10/03/2019 10:54:[address] Head or Brain w/o Contrast Ordering Physician DO MORRIS DAVID J Accession Number [id number] CPT4 Codes 12766 () Reason For Exam AMS, suspected overdose [...] KEVIN Transcribed Date and Time: 10/03/2019 11:01 [place] [facility], [facility] Incoming Radiology Results From [facility] - 10/03/2019 11:01 AM EDT Patient Name: CHARLIE NGUYEN ---CT--- Exam Date/Time 10/03/2019 10:54:[address] Head or Brain w/o Contrast Ordering Physician ALEXANDRA MEKA Accession Number [id number] CPT4 Codes 02772 () Reason For Exam AMS, suspected overdose [...] KEVIN Transcribed Date and Time: 10/03/2019 11:01 [place] Comprehensive Metabolic Pane rafiq 10-03-2019 Albumin [Mass/Vol] 3.9 g/dL 3.5 - 5 g/dL [place] ALP [Catalytic activity/Vol] 132 U/L High 38 - 126 U/L [place] ALT [Catalytic activity/Vol] 20 U/L 0 - 34 U/L [place] Comment on above: The ALT test is perf ormed by an updated assay method. Please note that the reference intervals have been changed and are now sex specific. Anion gap [Moles/Vol] 10 mmol/L [place] AST [Catalytic activity/Vol] 27 U/L 15 - 46 U/L [place] Bilirubin Ql (U) 0.6 mg/dL 0.2 - 1.3 mg/dL [place] Calcium [Mass/Vol] 8.5 mg/dL 8.4 - 10. 4 mg/dL [place] Chloride [Moles/Vol] 96 mmol/L Low 98 - 10 7 mmol/L [place] CO2 [Moles/Vol] 33 mmol/L High 22 - 30 mmol/L [place] Creatinine [Mass/Vol] 0.87 mg/dL 0.52 - 1.25 mg/dL [place] EGFR IF NonAfrican Ecuadorean >60.0 >60 mL/min [place] Comment on above: Source- MDRD equatio n with creatinine calibration to IDMS(NKDEP) eGFR not recommended for drug dose adjustment GFR/1.73 sq M predicted among blacks MDRD (S/P/Bld) [Vol rate/Area] mL/min/{1.73_m2} >60 mL/min [place] Glucose [Mass/Vol] 127 mg/dL High 70 - 100 mg/dL [place] Potassium [Moles/Vol] 3.7 mmol/L 3.5 - 5.1 mmol/L [place] Protein [Mass/Vol] 7.5 g/dL 6.3 - 8.2 g/dL [place] Sodium [Moles/Vol] 139 mmol/L 135 - 145 mmol/L [place] Urea nitrogen [Mass/Vol] 37 mg/dL High 7 - 20 mg/d L [place] Ethanolon 10-03-2019 Ethanol Lvl <0.010 0 - 0.01 g/dL [place] Comment on above: NOTE: This result is for medical treatment only. Analysis performed using non-forensic procedures. Hemogram (CBC) w/Auto Diffon 10-03-2019 Absolute Baso # 0.1 10*3/uL 0 - 0.2 10*3/uL [place] Absolute Neut # 10.0 10*3/uL High 1.8 - 7 10*3/uL [place] Basophils/100 WBC (Bld) 0.9 % 0 - 2 % [place] Eosinophils (Bld) [#/Vol] 0.0 10*3/uL 0 - 0.5 10*3/uL [place] Eosinophils/100 WBC (Bld) 0.1 % Low 1 - 6 % [place] Erythrocyte distribution width (RBC) [Ratio] 15.2 % High 11.5 - 14.5 % [place] Granulocytes/100 WBC (Bld) 82.5 % High 40 - 80 % [place] Hematocrit (Bld) [Volume fraction] 43.1 % 35 - 47 % [place] Hemoglobin (Bld) [Mass/Vol] 14.1 g/dL 11.7 - 16 g/dL [place] Interpretation and review of laboratory results Abnormal [place] Lymphocytes (Bld) [#/Vol] 1.2 10*3/uL 1 - 4.3 10*3/uL [place] Lymphocytes/100 WBC (Bld) 9.7 % Low 20 - 40 % [place] MCH (RBC) [Entitic mass] 31.9 pg 26 - 34 pg [place] MCHC (RBC) [Mass/Vol] 32.8 % 32 - 36 % [place] MCV (RBC) [Entitic vol] 97.2 fL 79 - 98 fL [place], [place] Monocytes (Bld) [#/Vol] 0.8 10*3/uL 0 - 0.8 10*3/uL [place] Monocytes/100 WBC (Bld) 6.8 % 2 - 10 % [place] Platelet mean volume (Bld) [Entitic vol] 9.0 fL 7.4 - 10.4 fL [place] Platelets (Bld) [#/Vol] 187 10*3/uL 140 - 440 10*3/uL [place] RBC (Bld) [#/Vol] 4.43 10*6/uL 3.8 - 5.2 10*6/uL [place] WBC (Bld) [#/Vol] 12.1 10*3/uL High 3.6 - 10.7 10*3/uL [place] Test Performed by [facility], [address] [facility] [address] Intubationon 10-03-2019 Luli Morris DO 10/03/2019 [...] passed the ET tube times one attempt. [place] Lactic Acid, Plasmaon 2019 Lactate [Moles/Vol] 1.3 mmol/L 0.7 - 2 mmol/L [place] Lipaseon 10-03-2019 Lipase [Catalytic activity/Vol] 67 U/L 23 - 300 U/L [place] Magnesiumon 10-03-2019 Magnesium [Mass/Vol] 1.5 mg/dL Low 1.6 - 2 .3 mg/dL [place] Otheron 10-03-2019 Test Performed by [facility], [facility] [address] [place], [place] [id number] [place] [address] Test Performed by [facility], [facility] [address] [place], [place] [address] [place] Interpretation and review of laboratory results Abnormal [place] Test Performed by [facility], [address] [place], [place] [address] [place] POCT Arterialon 10-03-2019 Base Excess, Arterial 9.2 mmol/L High -3 - 3 mmol/L [place] HCO3, Arterial 33.7 mmol/L High 21 - 25 mmol/L [place] Interpretation and review of laboratory results Abnormal [place] Oxygen saturation in Blood 92.6 % Low 95 - 100 % [facility], [place] pCO2, Arterial 44.1 mm[Hg] 35 - 45 mm[Hg] [facility], [place] pH, Arterial 7.492 High [facility] pO2, Arterial 60.8 mm[Hg] Low 80 - 100 mm[Hg] [place] Sodium [Moles/Vol] 60 mmol/L [place] Comment on above: Performed by CLIA ID : [id number] [place], [place] TCO2, Arterial 35.1 mmol/L High 23 - 27 mmol/L [place] Test Performed by [email or web address], [address] Base Excess, Arterial 8.6 mmol/L High -3 - 3 mmol/L [place] HCO3, Arterial 34.4 mmol/L High 21 - 25 mmol/L [place] Interpretation and review of laboratory results Abnormal [place] Oxygen saturation in Blood 89.9 % Low 95 - 100 % [facility] pCO2, Arterial 49.7 mm[Hg] High 35 - 45 mm[Hg] [facility], [place] pH, Arterial 7.448 [place] pO2, Arterial 56.9 mm[Hg] Low 80 - 100 mm[Hg] [place] Sodium [Moles/Vol] 40 mmol/L [place] Comment on above: Performed by CLIA ID : [id number] [place], [place] TCO2, Arterial 35.9 mmol/L High 23 - 27 mmol/L [place] Test Performed by [email or web address], [address] POCT Glucoseon 10-03-2019 Glucose [Mass/Vol] 125 mg/dL High 70 - 100 mg/dL [place] Comment on above: Test performed by ucose meter. Results may be 10%-15% lower than serum/plasma values. (CLIA ID [id number]) Interpretation and review of laboratory results Abnormal [place] Test Performed by [facility], [address], [place], [place] [address] [place] SALICYLATE LEVELon 0 Salicylate Lvl 1.1 mg/dL 0 - 20 mg/dL [place] Test Performed by [facility], [address], [place], [place] [address] [place] Troponin x1on 10-03-2019 Troponin I.cardiac [Mass/Vol] ng/mL 0 - 0.034 ng/mL [place] Comment on above: . Urinalysison 10-03-2019 Appearance (U) Clear Clear NA [place] Comment on above: . Bacteria, UA Many Abnormal Negative /[HPF] [place] Comment on above: . Bilirubin Urine Negative Negative mg/dL [place] Comment on above: . Color (U) Yellow Lt. Yellow NA [place] Comment on above: . Glucose, Ur Normal Normal (<70) mg/dL [place] Comment on above: . Interpretation and review of laboratory results Abnormal [place] Ketones Ql (U) Negative Negative mg/dL [place] Comment on above: . LEUKOCYTES, UA 250 Abnormal Negative Simon/uL [place] Comment on above: . Mucous Threads Few Negative /[LPF] [place] Comment on above: . Nitrite, Urine Negative Negative NA [place] Comment on above: . Occult Blood,Urine Negative Negative mg/dL [place] Comment on above: . pH (U) 5.5 [pH] [place] Comment on above: . Protein (U) [Mass/Vol] 10 mg/dL Abnormal Negative [place] Comment on above: . RBC (U) [#/Vol] 0-2 0 - 2 /[HPF] [place] Comment on above: . Specific [place], Urine 1.024 [place] Comment on above: . Squam Epithel, UA 0-2 3 - 5 /[HPF] [place] Comment on above: . Urobilinogen, Urine Normal Normal ( 0-1) mg/dL [place] Comment on above: . WBC, UA 26-50 Abnormal 0 - 5 /[HPF] [place] Comment on above: . Test Performed by [facility], [address] [place], [place], [place] [id number] [place] [address] Urine Drug Screenon 10-03-19 20 Amphetamines, urine Negative [facility], [place] Barbiturates, Ur Negative [place] Benzodiazepine Ur Qual Positive Me [facility], [place] Cocaine Metabolites, Ur Negative [facility], [place] Methadone, Urine Negative [facility], [place] Opiates, Urine Negative [facility], [place] Oxycodone Screen, Ur Negative [place] PCP, Urine Negative [place], [place] Comment on above: The expected value [...] confirmation under separate order. Test Performed by [facility], [address] [place], [address] XR CHEST PORTABLEon 10-03-19 Patient Name: CHARLIE NGUYEN ---Diagnostic Radiology--- Exam Date/Time 10/03/2019 08:25:00 EDT Exam CR Chest Portable Ordering Physician DO MORRIS DAVID J Accession Number [id number] CPT4 Codes 76431 () Reason For Exam Altered mental status, [...] focal consolidation seen. Report Dictated on Workstation: [facility] --- Final --- Dictating Physician: MD CARPENTER JONATHAN R Signed Date and Time: 10/03/2019 8:43 am Signed by: MD CARPENTER JONATHAN R Transcribed Date and Time: 10/03/2019 8:44 [place], [place] [facility], [facility] Incoming Radiology Results From [facility] - 10/03/2019 8:44 AM EDT Patient Name: CHARLIE NGUYEN ---Diagnostic Radiology--- Exam Date/Time 10/03/2019 08:25:00 EDT Exam CR Chest Portable Ordering Physician DO MORRIS DAVID J Accession Number [id number] CPT4 Codes 51459 () Reason For Exam Altered mental status, [...] focal consolidation seen. Report Dictated on Workstation: [facility] --- Final --- Dictating Physician: MD CARPENTER JONATHAN R Signed Date and Time: 10/03/2019 8:43 am Signed by: MD CARPENTER JONATHAN R Transcribed Date and Time: 10/03/2019 8:44 [place] URINE CULTUREon 10-30-2018 Bacteria identified Cx [...] LEVOFLOXACIN <2 S MEROPENEM <1 S Normal [facility] Comment on above: Performed By: #### M 100.55754 #### [facility] [address] [place] [address] UA COMPLETEon 10-28-2018 UA LK ESTERASE 500 Normal NEGATIVE [facility] Comment on above: Performed By: #### L 600.85758 #### [facility] [address] [place] [address] UA NITRITE Positive Normal NEGATIVE [facility] Comment on above: Performed By: #### L 600.81182 #### [facility] [address] [place] [address] UA WBC 529 WBC/HPF High 0-5 [facility] Comment on above: Performed By: #### L 600.50351 #### [facility] [address] [place], [place] [id number] Color Nom (U) Yellow Normal [facility] Comment on above: Performed By: #### L 600.71351 #### [facility] [address] [place], [place] [id number] Glucose mass conc (U) Negative Normal NORMAL [facility] Comment on above: Performed By: #### L 600.45619 #### [facility] [address] [place] [address] Mucus Ql (Urine sed) TRACE Normal NEGATIVE [facility] Comment on above: Performed By: #### L 600.37277 #### [facility] [address] [place] [address] SQUAMOUS EPIS 7 EPI/HPF High 0-5 [facility] Comment on above: Performed By: #### L 600.43679 #### [facility] [address] [place] [address] UA APPEARANCE Cloudy Normal CLEAR [facility] Comment on above: Performed By: #### L 600.17537 #### [facility] [address] [place] [address] UA BACTERIA 1+ /HPF Normal NONE [facility] Comment on above: Performed By: #### L 600.34720 #### [facility] [address] [place] [address] UA BILIRUBIN Negative Normal NEGATIVE [facility] Comment on above: Performed By: #### L 600.24968 #### [facility] [place] [address] UA BLOOD SMALL Normal NEGATIVE [facility] Comment on above: Performed By: #### L 600.97831 #### [facility] [address] [place] [address] UA KETONE Negative Normal NEGATIVE [facility] Comment on above: Performed By: #### L 600.99396 #### [facility] [place] [address] UA PH 6.0 Normal 5-6 [facility] Comment on above: Performed By: #### L 600.80284 #### [facility] [address] [place] [address] UA PROTEIN Negative Normal NEGATIVE [facility] Comment on above: Performed By: #### L 600.21379 #### [facility] [address] [place] [address] UA RBC 3 RBC/HPF Normal 0-3 [facility] Comment on above: Performed By: #### L 600.30273 #### [facility] [address] [place] [address] UA SPEC GRAV 1.015 Normal 1.005-1.030 [facility] Comment on above: Performed By: #### L 600.51025 #### [facility] [address] [place] [address] UA UROBILINOGEN Negative Normal NORMAL [facility] Comment on above: Performed By: #### L 600.54606 #### [facility] [place] [address] WBC CLUMPS MANY Normal [facility] Comment on above: Performed By: #### L 600.75403 #### [facility] [address] [place] [id number] Vital Signs Date Time Vital Sign Value Performing Clinician Facility 11-17-2022 15:49-0400 Diastolic blood pressure 80 mm[Hg] Marc Powerrakola DO Work Phone: [facility] 11-17-2022 15:49-0400 Heart rate 77 /min Marc Powerrakola DO Work Phone: [facility] 11-17-2022 15:49-0400 Respiratory rate 20 /min Marc Powerrakola DO Work Phone: [facility] 11-17-2022 15:49-0400 SaO2% (BldA) [Mass fraction] 91 % Marc Powerrakola DO Work Phone: [facility] 11-17-2022 15:49-0400 Systolic blood pressure 114 mm[Hg] Marc Powerrakola DO Work Phone: [facility] 11-17-2022 08:35-0400 Body mass index (BMI) [Ratio] 34.87 kg/m2 Marc Goodman DO Work Phone: [facility] [employer] 11-17-2022 08:35-0400 Body temperature 96.3 [degF] [email or web address] 11-17-2022 08:35-0400 Body weight 113.4 kg Marc Goodman DO [email or web address] 01-15-2021 13:32-0400 Diastolic blood pressure 65 mm[Hg] Nehaleliel Madden DO Work Phone: [employer] Work Phone: 01-15-2021 13:32-0400 Heart rate 78 /min Nehaleliel Maddne DO Work Phone: [employer] Work Phone: 01-15-2021 13:32-0400 SaO2% (BldA) [Mass fraction] 91 % Nehaleliel Madden DO Work Phone: [employer] Work Phone: 01-15-2021 13:32-0400 Systolic blood pressure 103 mm[Hg] Nehal Madden DO Work Phone: [employer] Work Phone: 01-15-2021 11:46-0400 Body height 180.3 cm Nehaleliel Madden DO Work Phone: [employer] Work Phone: 01-15-2021 11:46-0400 Body mass index (BMI) [Ratio] 32.08 kg/m2 Nehaleliel Madden DO Work Phone: [employer] Work Phone: 01-15-2021 11:46-0400 Body temperature 99.39 [degF] Nehaleliel Madden DO Work Phone: [employer] Work Phone: 01-15-2021 11:46-0400 Body weight 104.33 kg Nehal Madden DO Work Phone: [facility] Work Phone: 01-15-2021 11:46-0400 Respiratory rate 16 /min Nehal Madden DO Work Phone: [facility] Work Phone: 01-06-2021 02:54-0400 Diastolic blood pressure [...] 180.3 cm Erika Hudson MD Work Phone: [facility] Work Phone: 01-05-2021 19:10-0400 Body mass index (BMI) [Ratio] 32.08 kg/m2 Erika Hudson MD Work Phone: [facility] Work Phone: 01-05-2021 19:10-0400 Body temperature 100.51 [degF] Erika Hudson MD Work Phone: [facility] Work Phone: 01-05-2021 19:10-0400 Body weight 104.33 kg Erika Hudson MD [facility]: [facility] Work Phone: 12-18-2020 23:25-0400 Diastolic blood pressure 66 mm[Hg] Jorge Mejia MD Work Phone: [facility] Work Phone: 12-18-2020 23:25-0400 Heart rate 65 /min Jorge Mejia MD Work Phone: [facility] Work Phone: 12-18-2020 23:25-0400 Respiratory rate 16 /min Jorge Mejia MD Work Phone: [facility] Work Phone: 12-18-2020 23:25-0400 SaO2% (BldA) [Mass fraction] 91 % Jorge Mejia MD Work Phone: [facility] Work Phone: 12-18-2020 23:25-0400 Systolic blood pressure 100 mm[Hg] Jorge Mejia MD Work Phone: [facility] Work Phone: 12-18-2020 20:35-0400 Body height 180.3 cm Jorge Mejia MD Work Phone: [facility] Work Phone: 12-18-2020 20:35-0400 Body mass index (BMI) [Ratio] 32.08 kg/m2 Jorge Mejia MD Work Phone: [facility] Work Phone: 12-18-2020 20:35-0400 Body temperature 99.1 [degF] Jorge Mejia MD Work Phone: [facility] Work Phone: 12-18-2020 20:35-0400 Body weight 104.33 kg Jorge Mejia MD Work Phone: [employer] Work Phone: 02-03-2020 15:38-0400 Body Temperature 97.3 [degF] [facility] [place] [place] 02-03-2020 15:38-0400 BP Diastolic 62 mm[Hg] [facility] [place], [place] 02-03-2020 15:38-0400 BP Systolic 107 mm[Hg] [facility] [place], [place] 02-03-2020 15:38-0400 Pulse (Heart Rate) 59 /min [facility] [place], [place] 02-03-2020 15:38-0400 Pulse Oximetry 95 % [facility], [place] 02-03-2020 15:38-0400 Respiratory Rate 16 /min [facility], [place] 02-03-2020 05:59-0400 BMI (Body Mass Index) 33.64 kg/m2 [facility], [place] 02-03-2020 05:59-0400 Body weight 109.41 kg [facility], [place] 01-30-2020 14:03-0400 Height 180.3 cm [facility], [place] 11-04-2019 20:50-0400 Body Temperature 98.01 [degF] [facility] [place], [place] 11-04-2019 20:50-0400 BP Diastolic 81 mm[Hg] [facility]an [facility] [place] , [place] 11-04-2019 20:50-0400 BP Systolic 119 mm[Hg] [facility]aiman [facility] , [place] 11-04-2019 20:50-0400 Pulse (Heart Rate) 91 /min [facility], [place] 11-04-2019 20:50-0400 Pulse Oximetry 94 % [facility] , [place] 11-04-2019 20:50-0400 Respiratory Rate 20 /min [facility] [place], [place] 11-04-2019 13:50-0400 BMI (Body Mass Index) 41.84 kg/m2 Sulaiman [facility], [place] 11-04-2019 13:50-0400 Body weight 136.08 kg Sulaiman Valencia [facility] , [place] 11-04-2019 13:50-0400 Height 180.3 cm [facility] , [place] 10-25-2019 08:08-0400 Body Temperature 98.01 [degF] [facility], [place] 10-25-2019 08:08-0400 BP Diastolic 78 mm[Hg] [place] 10-25-2019 08:08-0400 BP Systolic 116 mm[Hg] [place] 10-25-2019 08:08-0400 Pulse (Heart Rate) 95 /min [place] 10-25-2019 08:08-0400 Pulse Oximetry 93 % [facility] , [place] 10-25-2019 08:08-0400 Respiratory Rate 18 /min [facility], [place] 10-13-2019 05:24-0400 BMI (Body Mass Index) 39.87 kg/m2 Luli [facility], [place] 10-13-2019 05:24-0400 Body weight 122.47 kg Luli [place] 10-05-2019 07:32-0400 Height 175.3 cm [place] Encounters Encounter Date Encounter Type Care Provider Facility Start: 03-13-2025 ambulatory Ender RICKS Faci lity:[facility] Start: 02-09-2025 End: 02-13-2025 Refill Moreno Oates MD Work Phone: [facility] Comment on above: Refill Request Start: 02-09-2025 End: 02-09-2025 ambulatory Ender RICKS Facility:[facility] Start: 02-02-2025 End: 02-02-2025 Telephone encounter Moreno Oates MD Work Phone: [facility] Practice Comment on above: Medication Request ( Rescue inhaler) Start: 01-13-2025 End: 01-13-2025 Refill Moreno Oates MD Work Phone: Family Practice Comment on above: Refill Request Start: 01-12-2025 End: 01-12-2025 Telephone encounter Moreno Oates MD Work Phone: Family Practice Comment on above: Outside Lab Results ([facility] ) Start: 01-09-2025 ambulatory Ender RICKS Faci lity:[facility] Start: 12-15-2024 End: 12-15-2024 Refill Moreno Oates MD Work Phone: Family Practice Comment on above: Refill Request Received Outside Med ical Records ([facility]- labs) Start: 12-09-2024 ambulatory Royer RICKS Facil ity:[facility] Start: 12-07-2024 End: 12-07-2024 ambulatory Moreno Oates MD Work Phone: Family Practice Comment on above: Headache Start: 11-18-2024 End: 11-18-2024 Refill Moreno Oates MD Work Phone: Family Practice Comment on above: Refill Request Start: 11-10-2024 End: 11-10-2024 Refill Moreno Oates MD Work Phone: Family Practice Comment on above: Refill Request Start: 11-09-2024 ambulatory Ender Burlesoni lity:[facility] Start: 10-17-2024 End: 10-20-2024 ambulatory MORENO OATES [facility] Start: 10-15-2024 ambulatory Ender Rose lity:[facility] Start: 10-14-2024 End: 10-14-2024 Refill Moreno Oates MD Work Phone: Family Practice Comment on above: Refill Request Start: 09-16-2024 End: 09-16-2024 Refill Moreno Oates MD Work Phone: Family Practice Comment on above: Refill Request Start: 09-09-2024 End: 09-09-2024 ambulatory Ender RICKS Facility:[facility] Start: 08-18-2024 End: 08-18-2024 Refill Moreno Oates MD Work Phone: Family Practice Comment on above: Refill Request Start: 08-10-2024 End: 08-10-2024 ambulatory Ender Oates MD Work Phone: [facility] Work Phone: Start: 08-10-2024 End: 08-10-2024 Departed Referred Royer Reagan -[facility] [address] Start: 08-10-2024 End: 08-10-2024 ambulatory Royer RICKS Facility:[facility] Start: 07-22-2024 End: 07-22-2024 Refill Moreno Oates MD Work Phone: Family Practice Comment on above: Refill Request Start: 07-18-2024 End: 07-18-2024 Telephone encounter Moreno Oates MD Work Phone: Family Practice Comment on above: Received Outside Med ical Records ([facility] ([facility]) Labs 07/12/2024) Start: 07-12-2024 ambulatory Ender RICKS Faci lity:[facility] Start: 07-12-2024 Registered Referred Ender Duke D -[facility] [place] [facility] [address] Start: 07-04-2024 ambulatory Royer RICKS Facil ity:[facility] Start: 07-04-2024 Registered [facility] [place] [facility] [address] Start: 06-23-2024 End: 06-23-2024 Refill Moreno Oates MD Work Phone: Family Practice Comment on above: Refill Request Start: 05-23-2024 End: 05-24-2024 Refill Moreno Oates MD Work Phone: [facility] Practice Comment on above: Refill Request Start: 05-11-2024 End: 05-11-2024 Departed Referred Ender Oates [place] -[place] - [address] Start: 05-11-2024 End: 05-11-2024 ambulatory Ender RICKS Facility:[facility] Start: 04-22-2024 End: 04-22-2024 Refill Moreno Oates MD Work Phone: Family Practice Comment on above: Refill Request Start: 04-21-2024 End: 04-22-2024 Refill Moreno Oates MD Work Phone: Family Practice Comment on above: Refill Request Start: 04-12-2024 End: 04-12-2024 Telephone encounter Moreno Oates MD Work Phone: Family Practice Comment on above: Received Outside Med ical Records ([facility] Labs 04/11/2024) Start: 04-11-2024 End: 04-11-2024 ambulatory Ender RICKS Facility:[facility] Start: 03-31-2024 End: 03-31-2024 Refill Moreno Oates MD Work Phone: [facility] Practice Comment on above: Refill Request Start: 03-25-2024 End: 03-25-2024 Refill Moreno Oates MD Work Phone: Family Practice Comment on above: Refill Request Start: 03-24-2024 End: 03-24-2024 Refill Moreno Oates MD Work Phone: Family Practice Comment on above: Refill Request Start: 03-17-2024 End: 03-17-2024 Telephone encounter Moreno Oates MD Work Phone: [facility] Practice Comment on above: Orders ([facility] Ismael carlos) Start: 03-10-2024 End: 03-10-2024 Telephone encounter Moreno Oates MD Work Phone: Family Practice Comment on above: Outside Labs Results ([facility]) Start: 02-29-2024 End: 02-29-2024 Refill Moreno Oates MD Work Phone: Family Practice Comment on above: Opened In Error Start: 02-26-2024 End: 02-26-2024 Refill Moreno Oates MD Work Phone: Family Practice Comment on above: Refill Request Start: 01-27-2024 End: 01-28-2024 Refill Moreno Oates MD Work Phone: Family Practice Comment on above: Refill Request Start: 12-30-2023 Refill Moreno peterson MD Work Phone: Family [facility] Comment on above: Refill Request Start: 12-29-2023 End: 01-20-2024 Telephone encounter Moreno Oates MD Work Phone: Family [facility] Comment on above: Medication Request Start: 11-27-2023 Telephone encounter Moreno Oates MD Work Phone: Family Practice Start: 11-10-2023 Telephone encounter Moreno Oates MD Work Phone: Family [facility] Comment on above: Received Outside Med ical Records ([facility] Labs 11/09/2023) Start: 10-27-2023 Refill Moreno peterson MD Work Phone: Family [facility] Comment on above: Refill Request Start: 10-12-2023 Telephone encounter Moreno Oates MD Work Phone: Family [facility] Comment on above: Outside Lab Results ([facility] 10/12/23) Start: 10-07-2023 Refill Moreno peterson MD Work Phone: Family Practice Comment on above: Refill Request Start: 09-25-2023 Refill Moreno peterson MD Work Phone: Family Practice Comment on above: Refill Request Start: 09-11-2023 Telephone encounter Moreno Oates MD Work Phone: Family [facility] Comment on above: Received Outside Med ical Records ([facility] Order to increase Zofran from 4 mg to 8 mg Q8 hr prn) Start: 08-11-2023 Telephone encounter Moreno Oates MD Work Phone: Family Practice Comment on above: Outside Labs Results ([facility]/ [facility]) Start: 08-10-2023 End: 08-10-2023 ambulatory [facility] Work Phone: Start: 08-10-2023 End: 08-10-2023 Departed Referred [facility] [place] [facility] [address] Start: 07-31-2023 Refill Moreno peterson MD Work Phone: Family Practice Comment on above: Refill Request Start: 07-30-2023 Refill Moreno peterson MD Work Phone: Family Practice Comment on above: Refill Request Start: 07-13-2023 End: 07-13-2023 Departed Referred [facility] [place] - [address] Start: 06-08-2023 End: 06-08-2023 ambulatory [facility] Work Phone: Start: 06-08-2023 End: 06-08-2023 Departed Referred [facility] [place] - [address] Start: 05-11-2023 Telephone encounter Moreno Oates MD Work Phone: Family Practice Comment on above: Received Outside Med ical Records ([facility] 05/11[facility]) Start: 05-11-2023 End: 05-11-2023 Departed Referred [facility] [address] Start: 04-29-2023 Telephone encounter Moreno Oates MD Work Phone: Family Practice Start: 04-13-2023 Telephone encounter Moreno Oates MD Work Phone: Family Practice Comment on above: Received Outside Med ical Records [facility] 04/06/2023) Start: 04-13-2023 End: 04-13-2023 ambulatory [facility] Work Phone: Start: 04-13-2023 End: 04-13-2023 Departed Referred [facility] [place] - [address] Start: 04-06-2023 Telephone encounter Moreno Oates MD Work Phone: Family [facility] Comment on above: Orders Start: 03-30-2023 Telephone encounter Moreno Oates MD Work Phone: Family Practice Start: 03-09-2023 End: 03-09-2023 ambulatory [facility] Work Phone: Start: 03-09-2023 End: 03-09-2023 [facility] [address] Start: 03-07-2023 End: 03-07-2023 [facility] [address] Start: 02-13-2023 ambulatory Moreno peterson MD Work Phone: [facility] Comment on above: Nurse Triage Call Start: 02-12-2023 Telephone encounter Moreno Oates MD Work Phone: Family [facility] Comment on above: Received Outside Med ical Records (Lab results 02/09/23 [facility]) Start: 02-11-2023 Telephone encounter Moreno Oates MD Work Phone: [facility] Comment on above: Medication Request Start: 02-09-2023 End: 02-09-2023 ambulatory [facility] Work Phone: Start: 02-09-2023 End: 02-09-2023 Departed Referred [facility] - [address] Start: 02-09-2023 Registered Referred [facility] - [address] Start: 01-31-2023 Telephone encounter Moreno Oates MD Work Phone: Family Practice Start: 01-26-2023 Telephone encounter Moreno Oates MD Work Phone: Family Practice Comment on above: Received Outside Med ical Records ([facility] Lower extremity venous duplex 01/21/2023) Start: 01-21-2023 End: 01-22-2023 ambulatory KENJI PHILLIP DO~[id number] [facility] Start: 01-13-2023 Refill Moreno peterson MD Work Phone: Family [facility] Comment on above: Refill Request Start: 01-12-2023 Telephone encounter Moreno Oates MD Work Phone: Family [facility] Comment on above: Received Outside Med ical Records (Lab results from [facility]/ [facility] Lab) Start: 01-12-2023 End: 01-12-2023 ambulatory [facility] Work Phone: Start: 01-12-2023 End: 01-12-2023 Departed Referred [facility] [place] - [address] Start: 01-01-2023 Refill Moreno peterson MD Work Phone: Family Practice Comment on above: Refill Request Start: 12-31-2022 Telephone encounter Moreno Oates MD Work Phone: Family [facility] Comment on above: Received Outside Med ical Records ([facility] ([facility]) Labs 12/30/2022) Start: 12-30-2022 End: 12-30-2022 Departed Referred [facility] [place] - [address] Start: 12-30-2022 Registered [facility] [place] [address] Start: 12-29-2022 ambulatory Moreno peterson MD Work Phone: [facility] Comment on above: Nurse Triage Call Start: 12-16-2022 Telephone encounter Moreno Oates MD Work Phone: Family [facility] Comment on above: Received Outside Med ical Records ([facility] Vascular Surgery 12/15/22) Start: 12-09-2022 End: 12-09-2022 ambulatory [facility] Work Phone: Start: 12-09-2022 End: 12-09-2022 Dep[facility]ed [facility] [address] Start: 12-01-2022 Telephone encounter Moreno Oates MD Work Phone: [facility] Comment on above: Orders Start: 11-27-2022 Registered [facility] [place] [address] Start: 11-21-2022 Telephone encounter Moreno Oates MD Work Phone: Family Practice Comment on above: Orders ([facility] having extreme pain in left leg asking for an increase in percocet to every 4 hours.) Start: 11-17-2022 End: 11-17-2022 Emergency department patient visit Marc Goodman DO Work Phone: [facility] ED Comment on above: Left leg swelling (P rimary Dx) Start: 11-12-2022 ambulatory Moreno peterson MD Work Phone: Internal Medicine [facility] [place] Start: 11-10-2022 End: 11-10-2022 ambulatory [facility] Work Phone: Start: 11-10-2022 End: 11-10-2022 Departed Referred [facility] - [address] Start: 11-06-2022 Telephone encounter Moreno Oates MD Work Phone: Family Practice Comment on above: Received Outside Med ical Records ([facility] portable x-ray service ([facility]) Chest x-ray 11/04/2022) Start: 10-10-2022 Telephone encounter Moreno Oates MD Work Phone: Family Practice Comment on above: Orders Start: 10-06-2022 Telephone encounter Moreno Oates MD Work Phone: Family Practice Comment on above: Received Outside Med ical Records ([facility] ([facility]) Labs) Start: 10-06-2022 End: 10-06-2022 Departed Referred [facility] - [address] Start: 10-01-2022 Telephone encounter Moreno Oates MD Work Phone: Family Practice Comment on above: Refill Request Start: 09-24-2022 Telephone encounter Moreno Oates MD Work Phone: Family Practice Comment on above: Clinical Symptoms Start: 09-19-2022 Telephone encounter Moreno Oates MD Work Phone: Family Practice Comment on above: Medication Request ( [facility] ) Start: 09-08-2022 End: 09-08-2022 [facility] [facility] Work Phone: Start: 09-08-2022 End: 09-08-2022 Departed Referred [facility] [address] Start: 09-08-2022 Registered Referred [facility] 300 Start: 09-05-2022 Telephone encounter Moreno Oates MD Work Phone: [facility] Comment on above: Medication Request ( [facility] ) Start: 08-29-2022 Telephone encounter Moreno Oates MD Work Phone: [facility] Comment on above: Medication Request ( [facility] Oxycodone apap 5-325 mg 1 tab every 6 hours ) Start: 08-28-2022 Telephone encounter Moreno Oates MD Work Phone: [facility] Comment on above: Outside Lab Results ([facility]) Start: 08-28-2022 End: 08-28-2022 ambulatory [facility] Work Phone: Start: 08-28-2022 End: 08-28-2022 Departed Referred [facility] [address] Start: 08-28-2022 Registered Referred [facility] [address] Start: 08-11-2022 End: 08-11-2022 Patient encounter procedure Debbie Batista PA-C Work Phone: Orthopaedics Comment on above: Status post total le ft knee replacement (Primary Dx); S/P revision of total knee, right Start: 08-11-2022 End: 08-11-2022 ambulatory [facility] Work Phone: Start: 08-11-2022 End: 08-11-2022 Departed Referred [facility] [address] Start: 08-08-2022 End: 08-08-2022 ambulatory [facility] Work Phone: Start: 08-08-2022 End: 08-08-2022 Departed Referred [facility] [address] Start: 08-08-2022 Registered Referred [facility] - [address] Start: 07-30-2022 Telephone encounter Moreno Oates MD Work Phone: Family Practice Comment on above: Received Outside Med ical Records ([place] [facility] [employer] [employer] ) Start: 07-29-2022 [...] Practice Comment on above: Outside Lab Results ([facility] 07/14/22) Start: 07-14-2022 End: 07-14-2022 Departed Referred [facility] [address] Start: 07-06-2022 ambulatory Moreno peterson MD Work Phone: Family Practice Start: 07-05-2022 Telephone encounter Moreno Oates MD Work Phone: Family Practice Comment on above: Patient Update ([facility] 07[facility]) Start: 06-25-2022 Refill Moreno peterson MD Work Phone: Family Practice Comment on above: Refill Request Start: 06-18-2022 Telephone encounter Moreno Oates MD Work Phone: Family Practice Comment on above: Orders ([facility]) Start: 06-12-2022 ambulatory UNKNOWN PROVIDER Facili ty:[facility] Start: 06-12-2022 End: 06-12-2022 Subsequent hospital visit by physician Ct [facility] Comment on above: Pain due to internal orthopedic prosthetic devices, implants and grafts, initial encounter ([facility]) [T84.84XA] Start: 06-09-2022 End: 06-09-2022 ambulatory [facility] Work Phone: Start: 06-09-2022 End: 06-09-2022 Departed Referred [facility] [address] Start: 06-09-2022 Registered Referred [facility] [address] Start: 05-22-2022 Telephone encounter Moreno Oates MD Work Phone: Family [facility] Comment on above: Outside Labs Results ([facility]) Start: 05-22-2022 End: 05-22-2022 ambulatory [facility] Work Phone: Start: 05-22-2022 End: 05-22-2022 Departed Referred [facility] [address] Start: 05-22-2022 Registered Referred [facility] 300 Start: 05-21-2022 End: 05-21-2022 Orders Only Debbie Batista PA-C Work Phone: Orthopaedics Comment on above: Status post total le ft knee replacement (Primary Dx) Status post total le ft knee replacement [Z96.652] Start: 05-15-2022 End: 05-15-2022 [facility] Work Phone: Start: 05-15-2022 End: 05-15-2022 Departed Referred [facility] [address] Start: 05-15-2022 Registered Referred [facility] [address] Start: 05-12-2022 Telephone encounter Moreno Oates MD Work Phone: Family Medicine Comment on above: Medication Request ( [facility] 05/12/2022 Oxycodone/apap) Start: 05-10-2022 End: 05-10-2022 ambulatory [facility] Work Phone: Start: 05-10-2022 End: 05-10-2022 Departed Referred [facility] [address] Start: 05-10-2022 [facility] Start: 05-01-2022 End: 05-01-2022 ambulatory [facility] Work Phone: Start: 05-01-2022 End: 05-01-2022 Departed Referred [facility] - [address] Start: 04-14-2022 End: 04-14-2022 Departed Referred [facility] [address] Start: 03-24-2022 Telephone encounter Moreno Oates MD Work Phone: Family Practice Comment on above: medication orders ([facility]) Start: 03-19-2022 ambulatory Moreno Oates [facility] Start: 03-18-2022 Refill Moreno peterson MD Work Phone: Family Practice Comment on above: Opened In Error Orders (Mammogram or ders [facility]) Start: 03-17-2022 Telephone encounter Moreno Oates MD Work Phone: Family Practice Comment on above: Diagnositic mammogra m and US orders Start: 03-11-2022 Telephone encounter Moreno Oates MD Work Phone: Family Practice Comment on above: Refill Request Start: 03-10-2022 Telephone encounter Moreno Oates MD Work Phone: Family Practice Comment on above: Orders ([facility]) Outside Lab Results ([facility]) Start: 03-10-2022 End: 03-10-2022 [facility] Start: 03-10-2022 [facility] Start: 03-06-2022 Telephone encounter Moreno Oates MD Work Phone: Family [facility] [place] Comment on above: Refill Request (Futu re [...] Practice Comment on above: Outside Lab Results ([facility]) Start: 02-10-2022 End: 02-10-2022 ambulatory [facility] Work Phone: Start: 02-10-2022 End: 02-10-2022 Departed Referred [facility] [address] Start: 02-05-2022 Telephone encounter Moreno Oates MD Work Phone: Family Practice Comment on above: Orders (Medication [facility] [place]) Start: 01-07-2022 Telephone encounter Moreno Oates MD Work Phone: Family Practice Comment on above: Refill Request Start: 01-06-2022 End: 01-06-2022 ambulatory [facility] Work Phone: Start: 01-06-2022 End: 01-06-2022 Departed Referred [facility] [address] Start: 01-02-2022 ambulatory Morenoadelaide Oates [facility] Start: 12-30-2021 Telephone encounter Moreno Oates MD Work Phone: Family Practice Comment on above: Orders (prescription request) Start: 12-27-2021 End: 12-27-2021 Departed Referred [facility] [address] Start: 12-23-2021 Telephone encounter Moreno Oates MD Work Phone: Family Practice Comment on above: Orders (Controlled m edication request from [facility]) Orders (Pharmacy Rec ommendation [facility]) Start: 12-09-2021 Telephone encounter Moreno Oates MD Work Phone: Family Practice Comment on above: Outside Lab Results ([facility]) Start: 12-09-2021 Registered Referred [facility] 300 Start: 12-03-2021 Refill Moreno peterson MD [...] medica tion refill) Start: 11-11-2021 Registered Referred [facility] 300 Start: 11-08-2021 End: 11-08-2021 Departed Referred [facility] 300 Start: 10-29-2021 Telephone encounter [...] Comment on above: Outside Lab Results (from [facility]) Start: 10-07-2021 End: 10-07-2021 [facility] Start: 10-04-2021 Refill Moreno peterson MD Work Phone: Family [facility] Comment on above: Refill Request ([facility]) Start: 09-27-2021 Refill Moreno peterson MD Work Phone: Family [facility] Comment on above: Refill Request Start: 09-09-2021 End: 09-09-2021 [facility] Start: 09-09-2021 Registered Referred [facility] [address] Start: 08-27-2021 Telephone encounter Moreno Oates MD Work Phone: [facility] Comment on above: Orders ([facility] 08/26/2021) Start: 08-26-2021 Refill Moreno peterson MD Work Phone: [facility] Start: 08-08-2021 End: 08-08-2021 [facility] [place] [facility] Start: 08-08-2021 [facility] [place] [facility] Start: 07-23-2021 End: 07-23-2021 [facility] Start: 07-23-2021 Registered [facility] [place] [facility] Start: 07-16-2021 End: 07-16-2021 [facility] Start: 07-16-2021 [facility] [place] [facility] Start: 07-09-2021 End: 07-09-2021 Departed Referred [facility] [address] Start: 07-09-2021 Registered Referred [facility] [facility] [address] Start: 07-08-2021 Telephone encounter Moreno Oates MD Work Phone: [facility] Comment on above: Received Outside Med ical Records ([facility] 07/05/2021 signature) Start: 07-02-2021 End: 07-02-2021 Departed Referred [facility] [address] Start: 07-02-2021 Registered Referred [facility] - [address] Start: 06-25-2021 End: 06-25-2021 Departed Referred [facility] [address] Start: 06-25-2021 Registered Referred [facility] [address] Start: 06-18-2021 End: 06-18-2021 Departed Referred [facility] [address] Start: 06-18-2021 Registered Referred [facility] [address] Start: 06-11-2021 End: 06-11-2021 Departed Referred [facility] [address] Start: 06-04-2021 End: 06-04-2021 Departed Referred [facility] [address] Start: 05-28-2021 Registered Referred [facility] [address] Start: 01-15-2021 End: 01-15-2021 Emergency department patient visit Nehal Madden DO Work Phone: [facility] Comment on above: Chronic pain of righ t knee (Primary Dx) Start: 01-05-2021 End: 01-06-2021 Emergency department patient visit Erika Hudson MD Work Phone: [facility] Emergency Dept Start: 12-18-2020 End: 12-19-2020 Emergency department patient visit Jorge Mejia MD Work Phone: [facility] ED Comment on above: Cellulitis of right lower extremity (Primary Dx) Start: 01-27-2020 End: 02-03-2020 Evaluation and management of inpatient Alexandro Ackerman Work Phone: [facility] 2E TELEMETRY Comment on above: Generalized weakness [...] 01-29-2020 Radiologic examinati on knee 3 views Kiely Goff Work Phone: Start: 01-28-2020 Iadna-dna/rna gi pth gn [facility] Start: 01-28-2020 Inf agent det nuclei c acid clostridium amp probe [facility] Work Phone: Start: 01-28-2020 ADD ON LAB TEST Kiley Goff Work Phone: Start: 01-28-2020 Assay of magnesium Pram od [facility] Work Phone: Start: 01-28-2020 Blood count complete auto&auto difrntl wbc Tian Estrellita Work Phone: Start: 01-28-2020 Culture bacterial bl ood aerobic w/id isolates Tian [facility] Work Phone: Start: 01-28-2020 MANUAL DIFFERENTIAL Pra mod [facility] Work Phone: Start: 01-27-2020 CULTURE, BLOOD 1 Tian [facility] Work Phone: Start: 01-27-2020 Drug screen class [...] Start: 11-04-2019 DIFFERENTIAL, BODY FLUID Pb A [employer] Work Phone: Start: 11-04-2019 Smr prim src gram/gi emsa stain bct fungi/cell Pb A [employer] Work Phone: Start: 11-04-2019 Cell count misc body fluids w/differential count Pb A [employer] Work Phone: Start: 11-04-2019 Crystal id light andrea roscopy edmar tiss/any fluid Pb A [employer] Work Phone: Start: 11-04-2019 Radiologic examinati on knee 3 views David George Jessy Work Phone: Start: 11-04-2019 Basic metabolic pane l calcium total David George Jessy Work Phone: Start: 11-04-2019 Blood count complete auto&auto difrntl wbc David George Jessy Work Phone: Start: 11-04-2019 C-reactive protein Steven George Jessy Work Phone: Start: 11-04-2019 Prothrombin time David George Jessy Work Phone: Start: 11-04-2019 Sedimentation rate r bc automated David Wintersvre Work Phone: Start: 10-25-2019 Assay of magnesium [...] d ev cleared fda spec home use [employer] Work Phone: Start: 10-18-2019 Radiologic exam ches [...] d ev cleared fda spec home use [employer] Work Phone: Start: 10-16-2019 Basic metabolic pane [...] Radiologic exam ches t single view Clinton Adrienne Work Phone: Start: 10-14-2019 Acute hepatitis panel I ftekhar Adrienne Work Phone: Start: 10-14-2019 Assay of magnesium Ifte ronan Deleon Work Phone: Start: 10-14-2019 Assay of phosphorus inorganic Clinton Deelon Work Phone: Start: 10-14-2019 Blood count complete auto&auto difrntl wbc Iftjohnathan Deleon Work Phone: Start: 10-14-2019 Comprehensive metabo lic panel Clinton Deleon Work Phone: Start: 10-13-2019 Potassium serum plasma/whole blood johnathan Deleon Work Phone: Start: 10-13-2019 Radiologic exam ches t single view johnathan Deleon Work Phone: Start: 10-13-2019 Assay of magnesium Koffi patric A Gendel Work Phone: Start: 10-13-2019 Assay of phosphorus inorganic Nica Rodríguez Gendel Work Phone: Start: 10-13-2019 Blood count complete auto&auto difrntl wbc Nica Rodríguez Gendel Work Phone: Start: 10-13-2019 Comprehensive metabo lic panel Carlenesudeepjoe Romero Work Phone: Start: 10-12-2019 Speech and language therapy regime Iftjohnathan Deleon Work Phone: Start: 10-12-2019 EXTUBATION Iftjohnathan Jones usain Work Phone: Start: 10-12-2019 Drug screen quantita tive vancomycin johnathan Deleon Work Phone: Start: 10-12-2019 POCT ARTERIAL Luli farley Work Phone: Start: 10-12-2019 Assay of magnesium Koffi patric A Gendel Work Phone: Start: 10-12-2019 Assay of phosphorus inorganic Nica A Gendel Work Phone: Start: 10-12-2019 Blood count complete auto&auto difrntl wbc Nica Rodríguez Botsch Work Phone: Start: 10-12-2019 Comprehensive metabo lic panel Masroor Romero Work Phone: Start: 10-12-2019 Radiologic exam ches t single view Iftekhar Adrienne Work Phone: Start: 10-11-2019 Radiologic exam ches t single view i3 membraneeklulu Adrienne Work Phone: Start: 10-11-2019 Assay of magnesium Koffi Rodríguez [email or web address] Work Phone: Start: 10-11-2019 Assay of phosphorus inorganic Nica Rodríguez Gendel Work Phone: Start: 10-11-2019 Blood count complete auto&auto difrntl wbc Nica Rodríguez Gendel Work Phone: Start: 10-11-2019 Comprehensive metabo lic panel Carleneroor Romero Work Phone: Start: 10-11-2019 POCT ARTERIAL Rami Abbo ud Work Phone: Start: 10-10-2019 Radiologic exam ches t single view Kalionlulu Adrienne Work Phone: Start: 10-10-2019 POCT ARTERIAL Rami Abbo ud Work Phone: Start: 10-10-2019 Assay of magnesium Koffi Rodríguez Gendel Work Phone: Start: 10-10-2019 Assay of phosphorus inorganic Nica Rodríguez Gendel Work Phone: Start: 10-10-2019 Blood count complete auto&auto difrntl wbc Nica Rodríguez Gendel Work Phone: Start: 10-10-2019 Comprehensive metabo lic panel Masroor Romero Work Phone: Start: 10-09-2019 Smr prim src gram/gi emsa stain bct fungi/cell Masroor Romero Work Phone: Start: 10-09-2019 Virus centrifuge enh ncd id imfluor stain ea Masroor Romero Work Phone: Start: 10-09-2019 POCT ARTERIAL Luli farley Work Phone: Start: 10-09-2019 Blood count hemoglobin Nica Rodríguez [email or web address] Work Phone: Start: 10-09-2019 Radiologic exam ches t single view Masroor Romero Work Phone: Start: 10-09-2019 EXTUBATION Masroor Mu stafa Work Phone: Start: 10-09-2019 Basic metabolic pane l calcium total Rami Judy Work Phone: Start: 10-09-2019 Blood count hemoglobin Nica Rodríguez Gendel Work Phone: Start: 10-09-2019 POCT ARTERIAL Luli farley Work Phone: Start: 10-09-2019 Assay of magnesium Rami Judy Work Phone: Start: 10-09-2019 Assay of phosphorus inorganic Rami Judy Work Phone: Start: 10-09-2019 Basic metabolic pane l calcium total Rami Judy Work Phone: Start: 10-09-2019 Blood count complete auto&auto difrntl wbc Nica Rodríguez Gendel Work Phone: Start: 10-08-2019 Ecg routine ecg w/le ast 12 lds w/i&r Nica Rodríguez Gendel Work Phone: Start: 10-08-2019 Basic metabolic pane l calcium total Rami Judy Work Phone: Start: 10-08-2019 Blood count hemoglobin Nica Rodríguez [email or web address] Work Phone: Start: 10-08-2019 Echo tthrc r-t 2d w/wom-mode compl spec&colr d Rami Judy Work Phone: Start: 10-08-2019 Basic metabolic pane l calcium total Rami Judy Work Phone: Start: 10-08-2019 Blood count hemoglobin Nica Rodríguez Gendel Work Phone: Start: 10-08-2019 Radiologic exam ches t single view Masroor Romero Work Phone: Start: 10-08-2019 Ecg routine ecg w/le ast 12 lds w/i&r Nica A Gendel Work Phone: Start: 10-08-2019 POCT ARTERIAL Luli farley Work Phone: Start: 10-08-2019 Assay of magnesium Koffi patric A Gendel Work Phone: Start: 10-08-2019 Assay of phosphorus inorganic Nica A Gendel Work Phone: Start: 10-08-2019 Blood count complete auto&auto difrntl wbc Nica A Gendel Work Phone: Start: 10-07-2019 Basic metabolic pane l calcium total Rami Judy Work Phone: Start: 10-07-2019 Ecg routine ecg w/le ast 12 lds w/i&r Nica A Gendel Work Phone: Start: 10-07-2019 Basic metabolic pane l calcium total Rami Judy Work Phone: Start: 10-07-2019 Ecg routine ecg w/le ast 12 lds w/i&r Nica A Gendel Work Phone: Start: 10-07-2019 POCT ARTERIAL Luli farley Work Phone: Start: 10-07-2019 Assay of magnesium Koffi patric A Gendel Work Phone: Start: 10-07-2019 Assay of phosphorus inorganic Nica A Gendel Work Phone: Start: 10-07-2019 Basic metabolic pane l calcium total Nica A Gendel Work Phone: Start: 10-07-2019 Blood count complete auto&auto difrntl wbc Nica A Gendel Work Phone: Start: 10-06-2019 Ecg routine ecg w/le ast 12 lds w/i&r Nica A Gendel Work Phone: Start: 10-06-2019 Basic metabolic pane l calcium total Rami Judy Work Phone: Start: 10-06-2019 POCT ARTERIAL Luli [employer] Work Phone: Start: 10-06-2019 Smr prim src gram/gi emsa stain bct fungi/cell Rami Judy Work Phone: Start: 10-06-2019 Virus centrifuge enh ncd id imfluor stain ea Rami Judy Work Phone: Start: 10-06-2019 Basic metabolic pane l calcium total Rami Judy Work Phone: Start: 10-06-2019 Ecg routine ecg w/le ast 12 lds w/i&r Nica Rodríguez Gendel Work Phone: Start: 10-06-2019 POCT ARTERIAL Luli Jones [employer] Work Phone: Start: 10-06-2019 ADD ON LAB TEST Nathalia Rodríguez Gend[facility] Work Phone: Start: 10-06-2019 Assay of magnesium Koffi Rodríguez Gendel Work Phone: Start: 10-06-2019 Blood count complete auto&auto difrntl wbc Nica Rodríguez Gendel Work Phone: Start: 10-06-2019 MANUAL DIFFERENTIAL Ila yazmin Rodríguez Gendel Work Phone: Start: 10-06-2019 RENAL + LIVER PROF Koffi Rodríguez Gendel Work Phone: Start: 10-05-2019 Ecg routine ecg w/le ast 12 lds w/i&r Nica Rodríguez Gendel Work Phone: Start: 10-05-2019 Basic metabolic pane [...] w/le ast 12 lds w/i&r Nica Rodríguez Gendel Work Phone: Start: 10-05-2019 Ct angiography chest w/contrast/noncontrast Rami Judy Work Phone: Start: 10-05-2019 POCT ARTERIAL Luli Lincoln Karen farley Work Phone: Start: 10-05-2019 Radiologic exam ches t single view Nica Rodríguez Gendel Work Phone: Start: 10-05-2019 Calcium ionized Nathalia Rodríguez Gend[employer] Work Phone: Start: 10-05-2019 ADD ON LAB TEST Mary Janend er Marcos Gendel Work Phone: Start: 10-05-2019 Assay of magnesium Koffi patric Rodríguez Gend[employer] Work Phone: Start: 10-05-2019 Assay of phosphorus inorganic Nica Rodríguez Gendel Work Phone: Start: 10-05-2019 Basic metabolic pane l calcium total Nica Rodríguez Gendel Work Phone: Start: 10-05-2019 Blood count complete auto&auto difrntl wbc Nica Rodríguez Gendel Work Phone: Start: 10-05-2019 MANUAL DIFFERENTIAL Ila yazmin A Gendel Work Phone: Start: 10-04-2019 Ecg routine ecg w/le ast 12 lds w/i&r Nica Rodríguez Gendel Work Phone: Start: 10-04-2019 Basic metabolic pane l calcium total Rami Judy Work Phone: Start: 10-04-2019 POCT ARTERIAL Luli cabrera Work Phone: Start: 10-04-2019 Procalcitonin (pct) Teo i Judy Work Phone: Start: 10-04-2019 Basic metabolic pane l calcium total Rami Judy Work Phone: Start: 10-04-2019 Ecg routine ecg w/le ast 12 lds w/i&r Nica Rodríguez Gendel Work Phone: Start: 10-04-2019 POCT ARTERIAL Luli farley Work Phone: Start: 10-04-2019 ADD ON LAB TEST Nathalia Rodríguez Gendel Work Phone: Start: 10-04-2019 Assay of magnesium Rami Judy Work Phone: Start: 10-04-2019 Assay of phosphorus inorganic Rami Judy Work Phone: Start: 10-04-2019 BASIC METABOLIC PANE L W/ REFLEX TO MG FOR LOW K Rami Judy Work Phone: Start: 10-04-2019 Blood count complete auto&auto difrntl wbc Rami Judy Work Phone: Start: 10-03-2019 Ecg routine ecg w/le ast 12 lds w/i&r Nica Rodríguez Gendel Work Phone: Start: 10-03-2019 Basic metabolic pane l calcium total Rami Judy Work Phone: Start: 10-03-2019 Culture bacterial bl ood aerobic w/id isolates Luli Nelsonh Work Phone: Start: 10-03-2019 POCT ARTERIAL Rami [...] 10-03-2019 Drug screen class list a Luli Morris Work Phone: Start: 10-03-2019 Urnls dip stick/tabl et rgnt auto w/o microscopy Luli Nelsonh Work Phone: Start: 10-03-2019 Assay of acetaminophen Luli [facility] Work Phone: Start: 10-03-2019 Assay of ethanol Luli [facility] Work Phone: Start: 10-03-2019 Assay of lactate Luli [facility] Work Phone: Start: 10-03-2019 Assay of lipase Luli [facility] Work Phone: Start: 10-03-2019 Assay of magnesium Saurabh d [facility] Work Phone: Start: 10-03-2019 Assay of salicylate Temo id [facility] Work Phone: Start: 10-03-2019 Assay of troponin quantitative Luli Lincoln [employer] Phone: Start: 10-03-2019 Blood count complete auto&auto difrntl wbc Luli [facility] [employer] Phone: Start: 10-03-2019 Comprehensive metabo lic panel Luli [facility] Work Phone: Start: 10-03-2019 Creatine kinase total D avisusie [facility] [employer] Phone: Start: 10-03-2019 CULTURE, BLOOD 1 Luli [facility] [employer] Phone: Start: 10-03-2019 Natriuretic peptide Temo [facility] Work Phone: Start: 10-03-2019 Ct cervical spine w/ o contrast material Luli [facility] Work Phone: Start: 10-03-2019 Ct head/brain w/o co ntrast material Luli [facility] [employer] Phone: Start: 10-03-2019 Radiologic exam ches t single view Luli [facility] [employer] Phone: Start: 10-03-2019 Ecg routine ecg w/le ast 12 lds w/i&r Luli [facility] [employer] Phone: Start: 10-03-2019 Gluc bld gluc mntr [...] RSV Vaccine (1 - 1-dose 75+ series) [facility] Start: 02-10-2028 Diabetes Screening Diabetes Screenin g [facility] Start: 07-12-2027 Diabetes Screening Diabetes Screenin g [facility] Start: 04-11-2027 Diabetes Screening Diabetes Screenin g [facility] Start: 12-06-2026 DTaP/Tdap/Td vaccine (2 - Td or Tdap) DTaP/Tdap/Td vaccine (2 - Td or Tdap) [facility] Work Phone: Start: 12-06-2026 DTaP/Tdap/Td vaccine (2 - Td) DTaP/Tdap/Td vaccine (2 - Td) [place] Start: 12-06-2026 DTaP/Tdap/Td Vaccine s (2 - Td or Tdap) DTaP/Tdap/Td Vaccines (2 - Td or Tdap) [facility] Start: 12-06-2026 Urine microalbumin profile [facility] Start: 11-08-2026 Diabetes Screening Diabetes Screenin g [facility] Start: 06-08-2026 Diabetes Screening Diabetes Screenin g [facility] Start: 05-11-2026 Diabetes Screening Diabetes Screenin g [facility] Start: 03-09-2026 Diabetes Screening Diabetes Screenin g [facility] Start: 12-30-2025 DIABETES SCREEN DIABETES SCREEN [facility] Start: 12-30-2025 Diabetes Screening Diabetes Screenin g [facility] Start: 11-10-2025 DIABETES SCREEN DIABETES SCREEN [facility] Start: 10-06-2025 DIABETES SCREEN DIABETES SCREEN [facility] Start: 04-14-2025 DIABETES SCREEN DIABETES SCREEN [facility] Start: 01-30-2025 Influenza vaccination [facility] Start: 06-01-2024 Advance Directive Discussion Advance Directive Discussion [facility] Start: 06-01-2024 Medicare Advantage Annual Wellness Visit Medicare Advantage Annual Wellness Visit [facility] Start: 01-31-2024 Covid-19 Vaccine ( season) Covid-19 Vaccine ( season) [facility] Start: 01-31-2024 Influenza vaccination [facility] Start: 01-07-2024 DIABETES SCREEN DIABETES SCREEN [facility] Start: 06-01-2023 Advance Directive Discussion Advance Directive Discussion [facility] Start: 06-01-2023 Behavioral Health Screening Behavioral Health Screening [facility] Start: 06-01-2023 Depression Assessment Depression Ass essment [facility] Start: 01-30-2023 Covid-19 Vaccine ( season) Covid-19 Vaccine () [facility] Start: 01-30-2023 Influenza vaccination [facility] Start: 06-01-2022 ADVANCE DIRECTIVE DISCUSSION ADVANCE DIRECTIVE DISCUSSION [facility] Start: 06-01-2022 DEPRESSION ASSESSMENT DEPRESSION ASS ESSMENT [facility] Start: 01-30-2022 Influenza vaccination [facility] Start: 06-01-2021 ADVANCE DIRECTIVE DISCUSSION ADVANCE DIRECTIVE DISCUSSION [facility] Start: 06-01-2021 DEPRESSION ASSESSMENT DEPRESSION ASS ESSMENT [facility] Start: 2021 BONE DENSITY BONE DENSITY [facility] Start: 2021 Bone Density Screening Bone Density Screening [facility] Start: 2021 Pneumococcal Vaccine : 65+ (1 of 1 - PCV) Pneumococcal Vaccine: 65+ (1 of 1 - PCV) [facility] Start: 2021 PNEUMOVAX AGE 65 AND OVER WITH 5YR LOOKBACK (#1) PNEUMOVAX AGE 65 AND OVER WITH 5YR LOOKBACK (#1) [facility] Start: 2021 Screening for osteoporosis Bone Density Screening [facility] Start: 01-30-2021 Influenza vaccination [facility] Start: 12-27-2020 End: 12-27-2020 Patient encounter procedure 12/27/2020 Office Visit Urology Zoila Gallagher APRN - [address] [address] [phone] [facility] Latoya Start: 12-11-2020 ANNUAL PCP TEAM CRIBBER CHRIS DISEASE VISIT ANNUAL PCP TEAM CHRONIC DISEASE VISIT [facility] Start: 11-25-2020 COVID-19 VACCINE (3 - Booster for Pfizer series) COVID-19 VACCINE (3 - Booster for Pfizer series) [facility] Start: 10-23-2020 Creatinine measurement Creatinine mo nitoring [place], [place] Start: 10-23-2020 Potassium monitoring Potassium monit [place]ing [place] Start: 08-22-2020 COVID-19 VACCINE (3 - Booster for Pfizer series) COVID-19 VACCINE (3 - Booster for Pfizer series) [facility] Start: 08-22-2020 COVID-19 VACCINE (3 - Pfizer series) COVID-19 VACCINE (3 - Pfizer series) [facility] Start: 01-31-2020 Influenza vaccination [place], [place] Start: 12-31-2019 BP CONTROLLED (<130/80) BP CONTROLLE D (<130/80) [facility] Start: 11-02-2019 Adult depression screening assessment DEPRESSION SCREENING [facility] Start: 06-05-2017 Screening for malign ant neoplasm of breast Breast cancer screen [place], [place] Start: 2016 RSV Vaccine (1 - 1-d ose 60+ series) RSV Vaccine (1 - 1-dose 60+ series) [facility] Start: 2006 Pneumococcal Vaccine : 50+ (1 of 1 - PCV) Pneumococcal Vaccine: 50+ (1 of 1 - PCV) [facility] Start: 2006 Screening for malign ant neoplasm of colon Colon cancer screen colonoscopy [place] Start: 2006 Shingles Vaccine (1 of 2) Shingles Vaccine (1 of 2) [place] Start: 2006 SHINGRIX VACCINE (1 of 2) SHINGRIX VACCINE (1 of 2) [facility] Start: 2006 Zoster Vaccines (1 of 2) Zoste r Vaccines (1 of 2) [facility] Start: 2001 COLOGUARD (FIT-DNA) COLOGUARD (FIT-D NA) [facility] Start: 2001 Colonoscopy COLONOSCOPY [facility] Start: 2001 COLORECTAL CANCER SCREENING COLORECTAL CANCER SCREENING [facility] Start: [address] COLONOGRAPHY [facility] Start: 2001 FECAL OCCULT BLOOD FECAL OCCULT BLOO D [facility] Start: 2001 Lipid 1996 panel - S alfonzo or Plasma Lipid Screening [facility] Start: 2001 Lipid panel Lipid Screening [facility] Start: 2001 LIPID SCREEN LIPID SCREEN [facility] Start: 2001 Screening for malign ant neoplasm of colon [facility] Start: 2001 SIGMOIDOSCOPY SIGMOIDOSCOPY [facility] Start: 1996 Mammography [facility] Start: 1996 Screening for malign ant neoplasm of breast [facility] Start: 1974 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 Annual PCP Team Chronic Disease Visit [facility] Start: 1974 Anxiety Screening Anxiety Screening [facility] Start: 1974 Depression Screening Depression Scre ening [facility] Start: 1974 Diabetes mellitus screening Diabetes Screening [facility] Start: 1974 HIV SCREENING HIV SCREENING [facility] Start: 1968 COVID-19 Vaccine (1) COVID-19 Vaccin e (1) [facility] Work Phone: Start: 1968 Depression Screening Depression Scre ening [facility] Start: 1962 Pneumococcal 0-64 ye ars Vaccine (1 of 1 - PPSV23) Pneumococcal 0-64 years Vaccine (1 of 1 - PPSV23) [place] Start: 1962 Pneumococcal 0-64 ye ars Vaccine (1 of 2 - PPSV23) Pneumococcal 0-64 years Vaccine (1 of 2 - PPSV23) [facility] Work Phone: Start: 1962 Pneumococcal Vaccine : 65+ (1 - PCV) Pneumococcal Vaccine: 65+ (1 - PCV) [facility] Start: 1962 Pneumococcal Vaccine : 65+ (1 of 2 - PCV) Pneumococcal Vaccine: 65+ (1 of 2 - PCV) [facility] Start: 1962 Pneumococcal Vaccine : 65+ Years (1 - PCV) Pneumococcal Vaccine: 65+ Years (1 - PCV) [facility] Start: 1962 PNEUMOCOCCAL: 65+ (1 - PCV) PNEUMOCOCCAL: 65+ (1 - PCV) [facility] Start: 1956 Lipid panel Lipid Panel [facility] Start: 1956 Screening for malign ant neoplasm of colon [facility] Start: 1956 Screening for osteoporosis Bone Density Scan [facility] Acapella Acapella Respira tory Care Routine Daily until discontinued [facility]2019 [facility]: Daily until disconti nued starting 10/25/2019 [facility] metabolic 2000 [facility] Comment on above: Daily until disconti nued starting 01/30/2020, 4 completed Daily until disconti nued starting 10/15/2019, 9 completed End: 11-05-2019 Basic Metabolic Panel w/ Reflex to MG Basic Metabolic Panel w/ Reflex to MG Lab Routine Tomorrow AM for 1 Occurrences starting 11/05/2019 until 11/05/2019 [facility] above: Tomorrow AM for 1 Oc currences starting 11/05/2019 until 11/05/2019 BIPAP BIPAP Respirator y Care Routine Every 4hr until discontinued starting 10/24/2019 [facility] on above: Every 4hr until disc ontinued starting 10/24/2019 End: 01-15-2021 Blood gas, venous Blood gas, venous Lab STAT One Time for 1 Occurrences starting 01/15/2021 until 01/15/2021 [facility] Work Phone: Comment on above: One Time for 1 Occur rences starting 01/15/2021 until 01/15/2021 Calcium, Ionized Calcium, Ionize d Lab Routine Daily until discontinued starting 10/22/2019, 4 completed [facility] above: Daily until disconti nued starting 10/22/2019, 4 completed End: 11-05-2019 CBC CBC Lab Routine Tomorrow AM for 1 Occurrences starting 11/05/2019 until 11/05/2019 [facility] above: Tomorrow AM for 1 Oc currences starting 11/05/2019 until 11/05/2019 CBC Auto Differential [facility] Comment on above: Daily until disconti nued starting 01/30/2020, 4 completed Daily until disconti nued starting 10/15/2019, 9 completed End: 10-03-2019 COVID-19 COVID-19 Lab Routine Once for 1 Occurrences starting 10/03/2019 until 10/03/2019 [place] Comment on above: Once for 1 Occurrenc es starting 10/03/2019 until 10/03/2019 COVID-19 COVID-19 Lab Rou carlos 10/03/2019 6:06 PM EDT [place] End: 01-31-2020 CRP [Mass/Vol] C-Reactive Protein Lab Add-On One Time for 1 Occurrences starting 01/31/2020 until 01/31/2020 [place] Comment on above: One Time for 1 Occur rences starting 01/31/2020 until 01/31/2020 End: 06-12-2022 Ct lower extremity w/o contrast material [facility] Work Phone: Comment on above: 1 Occurrences starti ng 06/12/2022 until 06/12/2022 End: 11-04-2019 Culture, Anaerobic and Aerobic Culture, Anaerobic and Aerobic Microbiology STAT One Time for 1 Occurrences starting 11/04/2019 until 11/04/2019 [place] Comment on above: One Time for 1 Occur rences starting 11/04/2019 until 11/04/2019 Culture, Anaerobic a nd Aerobic [place] End: 01-05-2021 Culture, Anaerobic and Aerobic Culture, Anaerobic and Aerobic Microbiology STAT One Time for 1 Occurrences starting 01/05/2021 until 01/05/2021 [facility] Work Phone: Comment on above: One Time for 1 Occur rences starting 01/05/2021 until 01/05/2021 End: 11-04-2019 Culture, Blood 1 Culture, Blood 1 Microbiology STAT One Time for 1 Occurrences starting 11/04/2019 until 11/04/2019 [place] Comment on above: One Time for [...] for 1 Occurrences starting 11/04/2019 until 11/04/2019 [facility] [place] [place] Comment on above: One Time for 1 Occur rences starting 11/04/2019 until 11/04/2019 End: 12-18-2020 Culture, Blood 2 Culture, Blood 2 Microbiology STAT One Time for 1 Occurrences starting 12/18/2020 until 12/18/2020 [facility] Work Phone: Comment on above: One Time for 1 Occur rences starting 12/18/2020 until 12/18/2020 Culture, Blood 2 [facility] Work Phone: End: 01-05-2021 Culture, Blood 2 Culture, Blood 2 Microbiology STAT One Time for 1 Occurrences starting 01/05/2021 until 01/05/2021 [facility] Work Phone: Comment on above: One Time [...] left 1 Occurrences starting 03/17/2022 until 04/16/2023 [facility] Work Phone: Comment on above: 1 Occurrences starti ng 03/17/2022 until 04/16/2023 ECG 12 lead ECG 12 lead CV E CG STAT 11/17/2022 9:13 AM EDT [facility] Work Phone: EKG 12 Lead [facility] Jones Comment on above: As Needed until disc ontinued starting 10/08/2019 Hepatic Function Panel Hepatic F unction Panel Lab Routine Daily until discontinued starting 10/15/2019, 9 completed [facility] on above: Daily until disconti nued starting 10/15/2019, 9 completed End: 10-25-2019 Home O2 eval (desaturation screen) Home O2 eval (desaturation screen) Respiratory Care Routine One Time for 1 Occurrences starting 10/25/2019 until 10/25/2019 [facility] Comment on above: One Time for 1 Occur rences starting 10/25/2019 until 10/25/2019 Initiate Oxygen Ther apy Protocol [facility] Comment on above: Daily until disconti [...] Daily until discontinued starting 10/22/2019, 4 completed [facility] Comment on above: Daily until disconti nued starting 10/22/2019, 4 completed End: 12-12-2023 AMANDA SCREENING AMANDA SCREENING Radiology Routine Encounter for screening mammogram for breast cancer 1 Occurrences starting 11/12/2022 until 12/12/2023 [facility] Work Phone: Comment on above: 1 [...] EDT [facility] Work Phone: Oxygen therapy [[facility]] [employer] [place] Comment on above: Daily until disconti nued starting 01/27/2020 Daily until disconti nued starting 01/05/2021 Daily until disconti nued starting 01/15/2021 End: 10-04-2019 PBP2A TEST FOR S. AUREUS PBP2A TEST FOR S. AUREUS Lab Routine Once for 1 Occurrences starting 10/04/2019 until 10/04/2019 [facility] Comment on above: Once for 1 Occurrenc es starting 10/04/2019 until 10/04/2019 End: 10-09-2019 PBP2A TEST FOR S. AUREUS PBP2A TEST FOR S. AUREUS Lab Routine Once for 1 Occurrences starting 10/09/2019 until 10/09/2019 [facility] [place] Comment on above: Once for 1 Occurrenc es starting 10/09/2019 until 10/09/2019 PBP2A TEST FOR S. AUREUS [facility] [place] Phosphate [Mass/Vol] Phosphorus Lab Routine Daily until discontinued starting 10/22/2019, 4 [facility] Comment on above: Daily until disconti nued starting 10/22/2019, 4 completed End: 10-03-2019 Procalcitonin Procalcitonin Lab Routine One Time for 1 Occurrences starting 10/03/2019 until 10/03/2019 [facility] Comment on above: One Time for 1 Occur rences starting 10/03/2019 until 10/03/2019 Procalcitonin [facility] [place] Comment on above: Q48H until discontin ued starting 01/05/2021, 1 completed Q48H until discontin ued starting 01/15/2021, 1 completed End: 01-31-2020 Sedimentation Rate Sedimentation Rate Lab Add-On One Time for 1 Occurrences starting 01/31/2020 until 01/31/2020 [facility] Comment on above: One Time for 1 Occur rences starting 01/31/2020 until 01/31/2020 [facility] Comment on above: Daily until disconti [...] left 1 Occurrences starting 03/17/2022 until 04/16/2023 [facility] Work Phone: Comment on above: 1 Occurrences starti ng 03/17/2022 until 04/16/2023 End: 01-30-2020 Wound ostomy eval Wound ostomy eval Wound Ostomy Routine One Time for 1 Occurrences starting 01/30/2020 until 01/30/2020 [facility] Comment on above: One Time for 1 Occur rences starting 01/30/2020 until 01/30/2020 [facility] Immunizations Immunization Date Immunization Notes Care Provider Laine aceves 03-25-2018 influenza, injectabl e, quadrivalent, preservative free Moreno Oates MD Work Phone: [facility] 03-25-2018 influenza virus vacc ine, unspecified formulation Marc Goodman DO Work Phone: [facility] 01-29-2017 influenza, injectabl e, quadrivalent, contains preservative Moreno Oates MD Work Phone: [facility] 01-11-2017 influenza, injectabl e, quadrivalent, preservative free Moreno Oates MD Work Phone: [facility] 12-06-2016 tetanus toxoid, redu milton diphtheria toxoid, and acellular pertussis vaccine, adsorbed [facility] 03-23-2016 influenza, injectabl e, quadrivalent, preservative free Moreno Oates MD Work Phone: [facility] 02-15-2016 Influenza Vaccine, unspecified formulation [place] 02-15-2016 influenza, injectabl e, quadrivalent, preservative free Moreno Oates MD Work Phone: [facility] 02-15-2016 influenza, seasonal, injectable Moreno Oates MD Work Phone: [facility] 03-24-2015 influenza nasal, unspecified formulation Moreno Oates MD Work Phone: [facility] 03-24-2015 influenza virus vacc ine, unspecified formulation [facility] 03-24-2015 influenza, seasonal, injectable, preservative free Moreno Oates MD Work Phone: [facility] 04-04-2009 novel Influenza-H1N1 -09, live virus for nasal administration Moreno Oates MD Work Phone: [facility] Payers Date Payer Category Payer Self-pay [id number] 2021 Private Health Insurance 2021 Unknown [id number] 2021 Medicare MEDICARE MEDICAR E A AND B [id number] 2021-Present [phone] [address] [address] [place] [address] Medicare [id number] 2021 Medicare MEDICARE MEDICAR E A AND B [id number] 2021-Present [phone] [place] [address] Medicare [id number] 2019 Medicaid MEDICAID [facility] DEPT [facility] xxxxxxxxxxxx 2019-Present [phone] [address] [place] [address] xxxxxxxxxxxx [id number] 2018 Medicaid [id number] 2018 [place] [id number] 2018-Present [phone] [address] [place] [address] Medicaid [id number] 2018 Medicaid [id number] 2018 Unknown [id number] 1959 Unknown [id number] 1956 Unknown [id number] 1956 Unknown [id number] 1956 Unknown [id number] .598 Unknown [id number] .462 Unknown [id number] .462 Unknown [id number] .462 Unknown [id number] .462 Unknown [id number] .462 Unknown [id number] .462 Unknown [id number] [id number] .462 Unknown [id number] .462 Unknown [id number] .462 Unknown [id number] .462 Unknown [id number] .462 Unknown [id number] .462 Unknown [id number] .462 Social History Date Type Detail Facility Start: 11-04-2019 End: 01-29-2020 Tobacco smoking status NHIS Former smoker [place], [place] Start: 06-01-1969 History of tobacco use Cigarette Smo ker [place] Start: 11-04-2019 End: 06-16-2022 Cigarettes smoked current (pack per day) - Reported [facility] Work Phone: Start: 11-04-2019 End: 12-21-2020 Alcohol intake Current non-drinker of alcohol (finding) [employer] JAIDA Start: 1955 Sex Assigned At Not on file M na [employer] JA[facility] Exposure to SARS-CoV -2 (event) Unable to assess [employer] JAIDA Start: 04-17-2017 End: 01-29-2020 Tobacco use and exposure Never used [employer] [facility] Exposure to SARS-CoV -2 (event) Not sure [employer] [facility] Start: 06-01-1969 End: 10-23-2019 Tobacco smoking status NHIS Current every day smoker [facility] Start: 11-05-2019 History SDOH Financial 4 [facility] Start: 11-05-2019 History SDOH Food Worry 2 [facility] Start: 1955 Sex Assigned At Female W [facility] Start: 05-20-2022 End: 06-16-2022 Tobacco use panel [facility] Work Phone: Start: 12-20-2014 National Score (1-10 0), lower number is lower risk 86 [facility] How hard is it for y ou to pay for the very basics like food, housing, medical care, and heating Not very hard [facility] Work Phone: (I/We) worried margarito er (my/our) food would run out before (I/we) got money to buy more. Sometimes true [facility] Work Phone: Tobacco smoking stat us VAIS Unknown if ever smoked [facility] Work Phone: Start: 09-02-2024 Sex Female (finding) [facility] Medical Equipment Procedure Code Equipment Code Equipment Origin al Text Equipment Identifier Dates Block Gmrs Small 10mm Augmentation Femoral Distal - [id number] Start: 03-19-2018 Cement Simplex P Bone Radiopaque Full Dose Sterile - [id number] Start: 06-06-2016 Comment on above: Description: simplex p bone cement Cement Simplex P Bone Radiopaque Full Dose Sterile - [id number] Start: 01-28-2017 Comment on above: Description: simplex p bone cement Cement Simplex P Tobramycin Bone Full Dose Radiopaque Preblend Sterile - [id number] Start: 03-19-2018 Hoz-Zj-[employer]-Kind Im plant - [id number]_[facility] Start: 07-06-2017 Comment on above: Description: cancell ous screw Component Gmrs Polyethylene Femoral Pack Crosslink Knee - [id number] Start: 03-19-2018 Stem Kinemax Clyde r 80mm Femoral Cement Knee - [id number] Start: 03-19-2018 Extension Kinema x Xs Cocr 40mm Stem Cemented Knee Femoral - [id number] Start: 03-19-2018 Component Triath rafiq 5 Femoral Cemented Posterior Stabilize Knee Right - [id number] Start: 06-06-2016 Insert Triathlon 6 X3 13mm Tibial Posterior Stabilized Bearing Knee - [id number] Start: 06-06-2016 Component Triath rafiq 5 Femoral Cemented Posterior Stabilize Knee Left - [id number] Start: 01-28-2017 Comment on above: Description: triathl on posterior stabilized femoral Insert Triathlon 5 X3 11mm Tibial Posterior Stabilized Bearing Knee - [id number] Start: 01-28-2017 Comment on above: Description: triathl on tibial bearing insert - ps Insert Triathlon 6 X3 16mm Tibial Posterior Stabilized Bearing Knee - [id number] Start: 04-20-2017 Comment on above: Description: Tibial Bearing Insert-PS Insert Triathlon 6 X3 19mm Tibial Posterior Stabilized Bearing Knee - [id number] Start: 07-06-2017 Comment on above: Description: triathl on X3 tibial bearing insert - ps Restrictor Mediu m Gaylord Cement Disposable Messaging Architect Distal - [id number] Start: 03-19-2018 Restrictor Mediu m Gaylord Cement Disposable Messaging Architect Distal - [id number] Start: 03-19-2018 Component Xs Sma ll Medium Tibial Rotate Hinge Knee - [id number] Start: 03-19-2018 Axle Femoral Mod ular Rotate Hinge Knee - [id number] Start: 03-19-2018 Wedge Duracon S2 Full 10mm Tibial Revision Knee - [id number] Start: 03-19-2018 Insert Gmrs Thk1 3mm S1 S2 Tibial Modular Rotate Hinge Proximal - [id number] Start: 03-19-2018 Bushing Femoral Modular Rotate Hinge Knee - [id number] Start: 11-06-2019 Insert Gmrs Neut ral Bumper Modular Rotate Hinge Knee Proximal - [id number] Start: 11-06-2019 Sleeve Tibial Mo dular Rotate Hinge Knee - [id number] Start: 11-06-2019 Insert Gmrs Thk1 3mm S1 S2 Tibial Modular Rotate Hinge Proximal - [id number] Start: 11-06-2019 Axle Femoral Mod ular Rotate Hinge Knee - [id number] Start: 11-06-2019 Component Xs Sma ll Medium Tibial Rotate Hinge Knee - [id number] Start: 11-06-2019 Bushing Femoral Modular Rotate Hinge Knee - [id number] Start: 11-06-2019 Bushing Femoral Modular Rotate Hinge Knee - [id number] Start: 12-19-2020 [place] Femoral Modular Rotate Hinge Knee - [id number] Start: 12-19-2020 Component Xs Sma ll Medium Tibial Rotate Hinge Knee - [id number] Start: 12-19-2020 Insert Gmrs Thk1 3mm S1 S2 Tibial Modular Rotate Hinge Proximal - [id number] Start: 12-19-2020 Sleeve Tibial Mo dular Rotate Hinge Knee - [id number] Start: 12-19-2020 Insert Gmrs Neut ral Bumper Modular Rotate Hinge Knee Proximal - [id number] Start: 12-19-2020 Axle Femoral Mod ular Rotate Hinge Knee - [id number] Start: 12-19-2020 Component Triath rafiq 32mm Asymmetric X3 10mm Patellar Knee - [id number] Start: 06-06-2016 Component Triath rafiq 32mm Asymmetric X3 10mm Patellar Knee - [id number] Start: 01-28-2017 Comment on above: Description: triathl on X3 asymmetric patella Component Gmrs M edium 01q95ln Femoral Modular Rotate Hinge Knee Left - [id number] Start: 03-19-2018 Component Gmrs S mall Titanium 70l24dl Femoral Modular Rotate Hinge Knee - [id number] Start: 03-19-2018 Mesh Marlex Polypropylene 04a29fn Surgical Patch Flat Sheet Knit Hernia - [id number] Start: 07-06-2017 Comment on above: Description: bard me sh Mesh Marlex Polypropylene 54p66nb Surgical Patch Flat Sheet Knit Hernia - [id number] Start: 03-19-2018 Baseplate Triath rafiq 6 Tibial Primary Cement Knee - [id number] Start: 06-06-2016 Baseplate Triath rafiq 5 Tibial Primary Cement Knee - [id number] Start: 01-28-2017 Comment on above: Description: triathl on primary tibial baseplate Baseplate S2 Tib ial Modular Rotate Hinge Knee - [id number] Start: 03-19-2018 Washer 6.5 / 8.0 mm Asnis 3 - [id number] Start: 07-06-2017 Comment on above: Description: washer CHRISTINA CHECK Functional Status Date Assessment Result Facility 01-08-2021 Are you deaf, or do you have serious difficulty hearing No 01/08/2021 2:54 PM EDT Turner Patten RN No [facility] 01-08-2021 Are you blind, or do you have serious difficulty seeing, even when wearing glasses No 01/08/2021 2:54 PM EDT Turner Patten RN No [facility] 01-08-2021 Do you have serious difficulty walking or climbing stairs Yes 01/08/2021 2:54 PM EDT Turner Patten, RN Yes [facility] 01-08-2021 Do you have difficul ty dressing or bathing Yes 01/08/2021 2:54 PM EDT Turner Patten, RN Yes [facility] 01-08-2021 Because of a physica l, mental, or emotional condition, do you have difficulty doing errands alone such as visiting a physician's office or shopping Yes 01/08/2021 2:54 PM EDT Turner Patten, RN Yes [facility] Mental Status Date Assessment Result Facility 01-08-2021 Because of a physica l, mental, or emotional condition, do you have serious difficulty concentrating, remembering, or making decisions No 01/08/2021 2:54 PM EDT Turner Patten, MUSHTAQ No [facility] Clinical Notes 11-26-2017 to 02-10-2025 Telephone Encounter - Moreno Oates MD - 02/10/2025 8:21 AM EDTTelephone Encounter - Moreno Oates MD - 02/10/2025 8:21 AM EDTTelephone Encounter - Fadumo Rahman LPN - 12/07/2024 1:37 PM EDT Note Date & Type Note Facility 02-10-2025 Telephone encounter Note The following approved medication requests have been transmitted electronically. Requested Prescriptions Signed Prescriptions Disp Refills diazePAM (VALIUM) 5 mg tablet 60 tablet 0 Sig: Take 1 tablet by mouth two times a day for 30 days. Patient should start on February 12, 2025. Authorizing Provider: MORENO OATES oxyCODONE-acetaminophen (PERCOCET) 5-325 mg tablet 120 tablet 0 Sig: Take 1 tablet by mouth every 6 hours for 30 days. Patient should start on February 12, 2025. Authorizing Provider: MORENO OATES pregabalin (LYRICA) 150 mg capsule 60 capsule 0 Sig: Take 1 capsule by mouth two times a day for 30 days. Patient should start on February 12, 2025. Authorizing Provider: MORENO OATES MD [facility] 02-10-2025 Miscellaneous Notes The following approved medication requests have been transmitted electronically. Requested Prescriptions Signed Prescriptions Disp Refills diazePAM (VALIUM) 5 mg tablet 60 tablet 0 Sig: Take 1 tablet by mouth two times a day for 30 days. Patient should start on February 12, 2025. Authorizing Provider: MORENO OATES oxyCODONE-acetaminophen (PERCOCET) 5-325 mg tablet 120 tablet 0 Sig: Take 1 tablet by mouth every 6 hours for 30 days. Patient should start on February 12, 2025. Authorizing Provider: MORENO OATES pregabalin (LYRICA) 150 mg capsule 60 capsule 0 Sig: Take 1 capsule by mouth two times a day for 30 days. Patient should start on February 12, 2025. Authorizing Provider: MORENO OATES MD documented in this encounter [facility] 02-02-2025 Telephone encounter Note Rx sent. Calros Mei APRN.BENJAMIN Requested Prescriptions Signed Prescriptions Disp Refills albuterol HFA (PROVENTIL HFA) 90 mcg/actuation inhaler 1 each 0 Sig: Inhale 2 puffs as instructed every 6 hours as needed. Authorizing Provider: CARLOS MEI Pharmacy Information [place] [address] [facility] 02-02-2025 Miscellaneous Notes Rx sent. Carlos Mei APRN.BENJAMIN Requested Prescriptions Signed Prescriptions Disp Refills albuterol HFA (PROVENTIL HFA) 90 mcg/actuation inhaler 1 each 0 Sig: Inhale 2 puffs as instructed every 6 hours as needed. Authorizing Provider: CARLOS MEI [facility] [place] [phone] Charlie is a patient of MD charlene Platt Nurse from [facility] called to request a rescue inhaler for this patient. She stated she texted Dr. Oates who told her to call the office for the request. Please send to [facility]. Patient has been identified by name and birthdate. Was an appointment scheduled: No Closing statement: Results or non-symptom based questions: Thank you for calling [facility], your call will be returned within the next business day. Hoda Fisher Pss documented in this encounter [facility] 02-02-2025 Telephone encounter Note Charlie is a patient of MD charlene Platt, Nurse from [facility] called to request a rescue inhaler for this patient. She stated she texted Dr. Oates who told her to call the office for the request. Please send to [facility]. Patient has been identified by name and birthdate. Was an appointment scheduled: No Closing statement: Results or non-symptom based questions: Thank you for calling [facility], your call will be returned within the next business day. Hoda Fisher Pss [facility] 01-13-2025 Telephone encounter Note The following approved [...] 30 days. Authorizing Provider: MORENO OATES MD [facility] 01-13-2025 Miscellaneous Notes The following approved medication [...] MORENO OATES MD documented in this encounter [facility] 01-12-2025 Telephone encounter Note Re[facility] lab [facility]. Placed in provider's inbox for review. Route to [place] scanning [facility] 01-12-2025 Miscellaneous Notes Received lab results from [facility]. Placed in provider's inbox for review. Route to [place] scanning documented in this encounter [facility] 12-15-2024 Telephone encounter Note Received lab results from [facility]. Placed in provider's inbox for review. Route to [place] scanning [facility] 12-15-2024 Miscellaneous Notes Received lab results from [facility]. Placed in provider's inbox for review. Route to [place] scanning documented in this encounter [facility] 12-15-2024 Telephone encounter Note Pt at [facility] The following approved medication requests have been [...] 30 days. Authorizing Provider: MORENO OATES MD [facility] 12-15-2024 Miscellaneous Notes Pt at [facility] The following approved medication requests have been [...] MORENO OATES MD documented in this encounter [facility] 12-07-2024 Telephone encounter Note Natalia aware of PT order from Dr Oates [facility] 12-07-2024 Miscellaneous Notes Natalia aware of PT [...] AND present > 4 weeks) Protocols used: Xhyuyngs-MRWTT-CK Natalia from [facility] calling updating that patient is having neck pain (9 out of 10). Neck pain is causing headaches. Patient has been identified by name and birthdate. Duration of symptoms: few days Please return call to [facility] and ask for the 300 nurse. Please call [phone] Was an appointment scheduled: No Closing statement: Symptom Call: Thank you for calling [facility], your call is very important. A nurse will call in approximately 2-4 hours during business hours. If this is an emergency, please contact 911. Mary Jo Genao documented in this encounter [facility] 12-07-2024 Telephone encounter Note Recommend physical therapy eval and treat. Moreno Oates MD [facility] 12-07-2024 Telephone encounter Note Spoke with nurse [...] AND present > 4 weeks) Protocols used: [id number]-ET [facility] 12-07-2024 Telephone encounter Note Natalia from [facility] calling updating that patient is having neck pain (9 out of 10). Neck pain is causing headaches. Patient has been identified by name and birthdate. Duration of symptoms: few days Please return call to [facility] and ask for the 300 nurse. Please call [phone] Was an appointment scheduled: No Closing statement: Symptom Call: Thank you for calling [facility], your call is very important. A nurse will call in approximately 2-4 hours during business hours. If this is an emergency, please contact 911. Mary Jo Genao [facility] 11-18-2024 Telephone encounter Note The following approved [...] 30 days. Authorizing Provider: MORENO OATES MD [facility] 11-18-2024 Miscellaneous Notes The following approved medication [...] MORENO OATES MD documented in this encounter [facility] 11-10-2024 Telephone encounter Note [facility] patient. Medications will 11/13/2024 [facility] 11-10-2024 Miscellaneous Notes [facility] patient. Medications will 11/13/2024 documented in this encounter [facility] 10-20-2024 Note Hospitalist Discharg e Summary Charlie [...] Disposition: Patient discharged in stable condition to [facility] LABS: CBC: Recent Labs 10/17/24 1312 10/18/24 [...] Complexity: follow up within 7-14 calendar days (36286) [x] Severe Complexity: follow up within 7 calendar days (10197) Follow up Testing, Pending results or Referrals [...] discharge instructions from (more content not included)... [facility] 10-20-2024 Note PHYSICAL THERAPY [facility] Initial Evaluation Name/MRN: Charlie Nguyen ([id number]) Evaluation Date: 10/20/2024 Date of : 1955 Admission Date: 10/17/2024 12:22 PM Age: 69 y.o. Room/Bed: B2-256/B2-256 A Discharge Recommendation: ECF with PT, Retirement Facility Assessment IMPRESSION: Pt is a 69yo female admitted [facility] ED [facility] with complaints of AMS and fever. Staff reports pt has been hallucinating. Pt found to have UTI. Prior to admission, pt lived at [facility] for ~3 years. Pt states she [...] independence in functional mobility. Recommend return to [facility] with PT at discharge. Admitting Diagnosis: [...] Contusion of right knee 02/03/2020 Benzodiazepine dependence ([facility]) 01/31/2020 Generalized weakness 01/27/2020 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[facility]) 11/04/2019 Intentional drug overdose ([facility]) 10/25/2019 Aspiration pneumonia ([facility]) ([facility]) 10/25/2019 Drug overdose, multiple drugs, accidental or unintentional, initial encounter 10/25/2019 Palliative care encounter 10/20/2019 Unspecified mood (affective) disorder ([facility]) 10/12/2019 Acute respiratory failure with hypoxia ([facility]) 10/08/2019 Hypertension 03/26/2015 Chronic nonintractable headache 03/26/2015 Glioma (HCC) 02/08/2015 Migraine 12/11/2014 Internal derangement of right [...] Mobility Raw Score (No Stairs) : 9 JH-M -HLM Score: Sat at edge of b (more content not included)... [facility] 10-19-2024 Note [facility] Respiratory Care Department Progress Note Comment [...] Respiratory in the care of this patient, [facility] 10-19-2024 Note Hospitalist Progress Note 10/19/2024 [phone]: Please page me ([phone]) for patient care issues. [phone]: Please page [facility] Hospitalist for any issues. Subjective: Admit [...] DO Division of Hospitalist Medicine Inpatient Medical Services/[facility] PAGER: Mofibo chat [1] Past Medical History: Diagnosis Date [...] 100 mg, Oral, (more content not included)... [facility] 10-19-2024 Note Patient sleeping com fortably, will attempt smoking cessation counseling at a later time. [facility] 10-18-2024 Note Hospitalist Progress Note 10/18/[id number]: Please page me ([phone]) for patient care issues. [phone]: Please page [facility] night Hospitalist for any issues. Subjective: Admit [...] Mobile Relation: Daughter Red GuidryDO [facility] of [facility] PAGER: Epic chat [1] Past Medical History: [...] Oral, Nightly pregabalin, 100 mg, Oral, BID [facility] 10-18-2024 Note SNF Return Referral placed to [facility] via [facility] per TCC request. Awaiting review and response regarding ability to accept. TCC notified. [facility] 10-17-2024 Note Attending History an [...] have . Patient currently resides in a correction and staff were concerned regarding patient developing [...] Resource Strain: Low Risk (11/05/2019) Received from [facility] Overall Financial Resource Strain (CARDIA) Difficulty of Paying Living Expenses: Not very hard Food Insecurity: Food Insecurity Present (11/05/2019) Received from [facility] Hunger Vital Sign Worried About Running Out of Food in the Last Year: Sometimes true Ran Out of Food in the Last Year: Sometimes true Transportation Needs: No Transportation Needs (11/05/2019) Received from [facility] PRAPARE - Transportation Lack of Transportation (Medical): [...] present. Mental S (more content not included)... [facility] 10-14-2024 Telephone encounter Note [facility] patient. The following approved medication requests [...] 30 days. Authorizing Provider: MORENO OATES MD [facility] 10-14-2024 Miscellaneous Notes [facility] patient. The following approved medication requests [...] MORENO OATES MD documented in this encounter [facility] 09-16-2024 Telephone encounter Note Pt resides at [facility] The following approved medication requests have been [...] 30 days. Authorizing Provider: MORENO OATES MD [facility] 09-16-2024 Miscellaneous Notes Pt resides at [facility] The following approved medication requests have been [...] MORENO OATES MD documented in this encounter [facility] 08-18-2024 Telephone encounter Note The following approved [...] 30 days. Authorizing Provider: MORENO OATES MD [facility] 08-18-2024 Miscellaneous Notes The following approved medication [...] MORENO OATES MD documented in this encounter [facility] 07-22-2024 Telephone encounter Note prison patient. [facility] 07-22-2024 Miscellaneous Notes prison patient. documented in this encounter [facility] 07-18-2024 Telephone encounter Note Received 07/18/2024 from [facility]. Placed in provider's inbox for review. Route to [place] for scanning. [facility] 07-18-2024 Miscellaneous Notes Received 07/18/2024 from [facility]. Placed in provider's inbox for review. Route to [place] for scanning. documented in this encounter [facility] 06-23-2024 Telephone encounter Note The following approved [...] 30 days. Authorizing Provider: MORENO OATES MD [facility] 06-23-2024 Miscellaneous Notes The following approved medication [...] MORENO OATES MD documented in this encounter [facility] 05-24-2024 Telephone encounter Note The following approved [...] 30 days. Authorizing Provider: MORENO OATES MD [facility] 05-24-2024 Miscellaneous Notes The following approved medication [...] MORENO OATES MD documented in this encounter [facility] 04-22-2024 Telephone encounter Note The following approved medication requests have been transmitted electronically. Requested Prescriptions Signed Prescriptions Disp Refills diazePAM (VALIUM) 5 mg tablet 60 tablet 0 Sig: Take 1 tablet by mouth two times a day for 30 days. Authorizing Provider: MORENO OATES MD [facility] 04-22-2024 Miscellaneous Notes The following approved medication requests have been transmitted electronically. Requested Prescriptions Signed Prescriptions Disp Refills diazePAM (VALIUM) 5 mg tablet 60 tablet 0 Sig: Take 1 tablet by mouth two times a day for 30 days. Authorizing Provider: MORENO OATES MD Received refill request from [facility]. Pended please advise. documented in this encounter [facility] 04-22-2024 Telephone encounter Note The following approved medication requests have been transmitted electronically. [facility] pt Requested Prescriptions Signed Prescriptions Disp Refills oxyCODONE-acetaminophen (PERCOCET) 5-325 mg tablet 120 tablet 0 Sig: Take 1 tablet by mouth every 6 hours for 30 days. Authorizing Provider: MORENO OATES pregabalin (LYRICA) 150 mg capsule 60 capsule 0 Sig: Take 1 capsule by mouth two times a day for 30 days. Authorizing Provider: MORENO OATES MD [facility] 04-22-2024 Miscellaneous Notes The following approved [facility] have been transmitted [facility] Signed Prescriptions Disp Refills oxyCODONE-acetaminophen (PERCOCET) 5-325 mg tablet 120 tablet 0 Sig: Take 1 tablet by mouth every 6 hours for 30 days. Authorizing Provider: MORENO OATES pregabalin (LYRICA) 150 mg capsule 60 capsule 0 Sig: Take 1 capsule by mouth two times a day for 30 days. Authorizing Provider: MORENO OATES MD documented in this encounter [facility] 04-21-2024 Telephone encounter Note Received refill request from [facility]. Pended please advise. [facility] 04-12-2024 Telephone encounter Note Received from [facility]. Placed in provider's inbox for review. Route to [place] for scanning. [facility] 04-12-2024 Miscellaneous Notes Received from [facility]. Placed in provider's inbox for review. Route to [place] for scanning. documented in this encounter [facility] 03-31-2024 Telephone encounter Note Patient's request for medication has been refused. See reason and notify patient. Requested Prescriptions Refused Prescriptions Disp Refills oxyCODONE-acetaminophen (PERCOCET) 5-325 mg tablet 120 tablet 0 Sig: Take 1 tablet by mouth every 6 hours for 30 days. pregabalin (LYRICA) 150 mg capsule 60 capsule 0 Sig: Take 1 capsule by mouth two times a day for 30 days. [facility] 03-31-2024 Miscellaneous Notes Patient's request for medication [...] request from [facility] documented in this encounter [facility] 03-31-2024 Telephone encounter Note Rx request from [facility] 03-25-2024 Telephone encounter Note The following approved [...] 30 days. Authorizing Provider: MORENO OATES MD [facility] 03-25-2024 Miscellaneous Notes The following approved medication [...] MORENO OATES MD documented in this encounter [facility] 03-24-2024 Telephone encounter Note The following approved medication requests have been transmitted electronically. Requested Prescriptions Signed Prescriptions Disp Refills diazePAM (VALIUM) 5 mg tablet 60 tablet 0 Sig: Take 1 tablet by mouth two times a day for 30 days. Authorizing Provider: MORENO OATES MD [facility] 03-24-2024 Miscellaneous Notes The following approved medication requests have been transmitted electronically. Requested Prescriptions Signed Prescriptions Disp Refills diazePAM (VALIUM) 5 mg tablet 60 tablet 0 Sig: Take 1 tablet by mouth two times a day for 30 days. Authorizing Provider: MORENO OATES MD Refill request from [facility], pended. documented in this encounter [facility] 03-24-2024 Telephone encounter Note Refill request from [facility], pended. [facility] 03-17-2024 Telephone encounter Note Received orders from [employer]. Placed in provider's inbox for review. Route to [place] fax [facility] 03-17-2024 Miscellaneous Notes Received orders from [facility]. Placed in provider's inbox for review. Route to [place] fax documented in this encounter [facility] 03-10-2024 Telephone encounter Note Received outside lab results from [facility]. Placed in provider's inbox for review. Route to [place] scanning [facility] 03-10-2024 Miscellaneous Notes Received outside lab results from [facility]. Placed in provider's inbox for review. Route to [place] scanning documented in this encounter [facility] 02-26-2024 Telephone encounter Note [facility] patient. . The following approved medication [...] 30 days. Authorizing Provider: MORENO OATES MD [facility] 02-26-2024 Miscellaneous Notes [facility] patient. . The following approved medication [...] MORENO OATES MD documented in this encounter [facility] 01-28-2024 Telephone encounter Note [facility] patient Requested Prescriptions Signed Prescriptions Disp Refills oxyCODONE-acetaminophen (PERCOCET) 5-325 mg tablet 120 tablet 0 Sig: Take 1 tablet by mouth every 6 hours for 30 days. Authorizing Provider: MORENO OATES pregabalin (LYRICA) 150 mg capsule 60 capsule 0 Sig: Take 1 capsule by mouth two times a day for 30 days. Authorizing Provider: MORENO OATES [facility] 01-28-2024 [facility] Request[facility] Pres[facility] Signed Prescriptions Disp [...] 2024 3:29 PM documented in this encounter [facility] 01-27-2024 Telephone encounter Note Prescription Refill Information [...] Gaviria LPN January 27, 2024 3:29 PM [facility] 12-30-2023 Telephone encounter Note The following approved [...] 30 days. Authorizing Provider: MORENO OATES MD [facility] [facility] 12-30-2023 Miscellaneous Notes The following approved medication [...] for 30 days. Nurse called from the correction facility to request. Hoda Lewis December 29, 2023 4:56 PM documented in this encounter [facility] 12-30-2023 Telephone encounter Note Prescription Refill Information [...] Gaviria LPN December 30, 2023 9:55 AM [facility] 12-30-2023 Miscellaneous Notes Prescription Refill Information The [...] 2023 9:55 AM documented in this encounter [facility] 12-29-2023 Telephone encounter Note Charlie is calling Moreno Oates MD today [facility], Nurse from [facility] called to request this medication, not on current list: Disp Refills Start End diazePAM (VALIUM) 5 mg tablet 60 tablet 0 11/27/2023 12/27/2023 Sig: Take 1 tablet by mouth two times a day for 30 days. Sent to pharmacy as: diazePAM (VALIUM) 5 mg tablet Class: Normal Route: ORAL Order: [id number] E-Prescribing Status: Receipt confirmed by pharmacy (11/27/2023 2:31 PM EDT) Please send to [facility]. Patient has been identified by name and birthdate. Duration of symptoms: N/A Was an appointment scheduled: No Closing statement: Results or non-symptom based questions: Thank you for calling [facility], your call will be returned within the next business day. Hoda Fisher Pss [facility] 12-29-2023 Miscellaneous Notes Charlie is calling Moreno Oates MD [facility], Nurse from [facility] called to request this medication, not on current list: Disp Refills Start End diazePAM (VALIUM) 5 mg tablet 60 tablet 0 11/27/2023 12/27/2023 Sig: Take 1 tablet by mouth two times a day for 30 days. Sent to pharmacy as: diazePAM (VALIUM) 5 mg tablet Class: Normal Route: ORAL Order: [id number] E-Prescribing Status: Receipt confirmed by pharmacy (11/27/2023 2:31 PM EDT) Please send to [facility]. Patient has been identified by name and birthdate. Duration of symptoms: N/A Was an appointment scheduled: No Closing statement: Results or non-symptom based questions: Thank you for calling [facility], your call will be returned within the next business day. Hoda Fisher Pss documented in this encounter [facility] 12-29-2023 Telephone encounter Note Prescription Refill Information [...] for 30 days. Nurse called from the correction facility to request. Hoda Lewis December 29, 2023 4:56 PM [facility] 11-27-2023 Telephone encounter Note Pt at [facility]. The following approved medication requests have [...] 30 days. Authorizing Provider: MORENO OATES MD [facility] 11-27-2023 Miscellaneous Notes Pt at [facility]. The following approved medication requests have [...] MORENO OATES MD documented in this encounter [facility] 10-28-2023 Telephone encounter Note prison patient. The following approved medication requests have [...] Address [facility] [employer] [facility] [address] [place] [address] Moreno Oates MD [facility] 10-28-2023 Miscellaneous Notes prison patient. The following approved medication requests have [...] phone, fax) Pharmacy Information Pharmacy Address Telephone [facility] [address] [place] [address] Moreno Oates MD Pharmacy verified in [facility] Patient has been identified by [...] Fadumo Rahman LPN documented in this encounter [facility] 10-27-2023 Telephone encounter Note Pharmacy verified in [...] Not applicable Please advise. Fadumo Rahman LPN [facility] 10-12-2023 Telephone encounter Note Received lab results from [facility]. Placed in provider's inbox for review. Route to MA scanning [facility] 10-12-2023 Miscellaneous Notes Received lab results from [facility]. Placed in provider's inbox for review. Route to MA scanning documented in this encounter [facility] 10-08-2023 Telephone encounter Note The following approved [...] To back Authorizing Provider: MORENO OATES MD [facility] 10-08-2023 Miscellaneous Notes The following approved medication [...] Rx request, pended documented in this encounter [facility] 10-07-2023 Telephone encounter Note Rx request, pended [facility] 09-25-2023 Telephone encounter Note [facility] patient. The [...] Address [facility]phone [facility] [facility] [address] [place] [address] Moreno Oates MD [facility] 09-25-2023 Miscellaneous Notes [facility] patient. The following [...] Provider: MORENO OATES [facility] [place] [address] Moreno Oates MD documented in this encounter [facility] 09-11-2023 Telephone encounter Note The following approved medication requests have been transmitted electronically. Requested Prescriptions Signed Prescriptions Disp Refills ondansetron (ZOFRAN) 8 mg tablet 90 tablet 5 Sig: Take 1 tablet by mouth every 8 hours as needed for nausea/vomiting. Authorizing Provider: MORENO OATES Pharmacy Information Pharmacy Address [facility], [place] [address] Moreno Oates MD [facility] 09-11-2023 Miscellaneous Notes The following approved medication requests have been transmitted electronically. Requested Prescriptions Signed Prescriptions Disp Refills ondansetron (ZOFRAN) 8 mg tablet 90 tablet 5 Sig: Take 1 tablet by mouth every 8 hours as needed for nausea/vomiting. Authorizing Provider: MORENO OATES Pharmacy Information Pharmacy Address [facility], [address] [address] Moreno Oates MD documented in this encounter [facility] 08-11-2023 Miscellaneous Notes Received lab results from [facility]/ [facility]. Placed in provider's inbox for review. Route to [place] scanning documented in this encounter [facility] 07-31-2023 Miscellaneous Notes [facility] The following approved medication requests have been transmitted electronically. Requested Prescriptions Signed Prescriptions Disp Refills oxyCODONE-acetaminophen (PERCOCET) 5-325 mg tablet 120 tablet 0 Sig: Take 1 tablet by mouth every 6 hours for 30 days. Authorizing Provider: MORENO OATES MD documented in this encounter [facility] 07-30-2023 Miscellaneous Notes Pt at [facility]. Seen by Dr Oates in facility [...] MORENO OATES MD documented in this encounter [facility] 05-11-2023 Miscellaneous Notes Received 05/11/2023 from [facility]. Placed in provider's inbox for review. Route to [place] for scanning. documented in this encounter [facility] 04-29-2023 Miscellaneous Notes Pt at [facility], due for refills. The following approved [...] MORENO OATES MD documented in this encounter [facility] 04-13-2023 Miscellaneous Notes Received 04/13/2023 from [facility]. Placed in provider's inbox for review. Route to [place] for scanning. documented in this encounter [facility] 04-07-2023 Miscellaneous Notes Relayed message to Tamar. She said she would check and patients supply. Tamar, nurse for this patient, returned call. Please call her back at [phone]. LM for nurse at [facility]. Let pharmacy know these Rx's were sent last week Moreno Oates MD Received order requests from [facility] for diazepam and oxycodone APAP. Placed in provider's inbox to review. documented in this encounter [facility] 03-30-2023 Miscellaneous Notes The following approved medication [...] MORENO OATES MD documented in this encounter [facility] 02-13-2023 Miscellaneous Notes Spoke to Ginny at [...] as above. Please process accordingly. Lou Davis APRN.BENJAMIN See below, per nurse Yoly at the facility the patient resides at, [...] my name is Yoly I'm calling from [facility] facility. Phone number is [phone]. Calling in regards to a Charlie Nguyen [...] Protocols used: Information Only Call - No [id number] documented in this encounter [facility] 02-12-2023 Miscellaneous Notes Received lab results from [facility]. Placed in provider's inbox for review. Route to MA scanning. documented in this encounter [facility] 02-12-2023 Miscellaneous Notes Spoke with Lovely at [facility]. Relayed message below. Verbalized understanding with no further questions or concerns. Yudi Pak Lovely, Nurse from the Care [facility] where the patient lives is calling back. Please call her again [phone]. Please call more than one time, she [...] regular Percocet. Moreno Oates MD [place] with [facility] calling today asking for stronger tylenol. Patient is requesting 1000 mg. Cheyenne is also updating that the patient is on percocet as well. Please return call if appropriate [phone] documented in this encounter [facility] 01-31-2023 Miscellaneous Notes The following approved medication [...] MORENO OATES MD documented in this encounter [facility] 01-31-2023 Miscellaneous Notes The following approved medication [...] needs Dr Oates's signature and faxed to [facility] pharmacy. documented in this encounter [facility] 01-26-2023 Miscellaneous Notes Received 01/26/2023 from [facility]. Placed in provider's inbox for review. Route to [place] for scanning. documented in this encounter [facility] 01-13-2023 Miscellaneous Notes Received clarification request from [facility] pharmacy. Placed in provider's inbox for review. Route to MA fax documented in this encounter [facility] 01-12-2023 Miscellaneous Notes Received lab results from [facility]/ [facility]. Placed in provider's inbox for review. Route to MA scanning. documented in this encounter [facility] 01-01-2023 Miscellaneous Notes The following approved medication [...] urgent request for refills via fax from [employer]. Placed in provider's inbox for review. Route to AK e sc[facility]. documented in this encounter [facility] 12-31-2022 Miscellaneous Notes Received 12/31/2022 from [facility] [employer]. Placed in provider's inbox for review. Route to [place] for scanning documented in this encounter [facility] 12-29-[address] [facility]. Moreno Oates MD Please review and advise. Hey good afternoon my name is Zari Segovia nurse practitioner with [facility]. Phone number [phone]. I'm calling in regards to patient Charlie Reyes. Her date of is 1955. She is a resident at [facility]. Calling Charlie has a mildly low pulse [...] like you can return my call at [phone]. Thank you so much. Galindo madrid. Reason for Disposition [1] Follow-up call to recent contact AND [2] information only call, no triage required Protocols used: Information Only Call - No [id number] documented in this encounter [facility] 12-16-2022 Miscellaneous Notes Received consultation visit summary from [facility]. Placed in provider's inbox for review. Route to AK scanning. documented in this encounter [facility] 12-01-2022 Miscellaneous Notes Refills sent on 11/26. Vaughn Montes De Oca MD [facility] PCP office in [place] requesting orders for patient's oxycodone/APAP and diazepam. PCP out of office - I faxed the orders over to covering providers in [place]. Can anyone sign the orders for patient's refills? documented in this encounter [facility] 11-21-2022 Miscellaneous Notes No change faxed to [facility]. documented in this encounter [facility] 11-17-2022 Emergency department Note Report called to [facility]. Kelvin Grajeda RN 11/17/22 1400 [facility] 11-17-2022 Emergency department Note Report called [...] with Leg Swelling Pt brought in [facility] for swelling in her L ankle [...] She is currently on Eliquis. Sent by [facility] via EMS to rule out DVT. [...] Culture. Procedure Abnormality Status --------- ------ Complete Urinalysis[[id number]] Please view results for these tests on [...] 12:20:12 PM PATIENT REFERRED TO: Moreno Oates [address] [place] [address] Schedule an appointment as soon as possible [...] Emergency Medicine Provider Marc Goodman DO 11/17/22 1227 documented in this encounter [facility] 11-17-2022 Emergency department Note Physicians ETA 15 min Carlos Castano RN 11/17/22 1222 [facility] 11-17-2022 Emergency department Note Oxygen via [place] off since 1250 to see if able to tolerate RA. Kelvin Grajeda RN 11/17/22 0086 [facility] 11-17-2022 Physician Emergency department Note EMERGENCY DEPARTMENT ENCOUNTER Pt Name: Charlie Nguyen Birthdate 1955 Date of evaluation: 11/17/2022 ED Provider: Marc Goodman DO CHIEF COMPLAINT Chief Complaint Patient presents with Leg Swelling Pt brought in [facility] for swelling in her L ankle [...] She is currently on Eliquis. Sent by [facility] via EMS to rule out DVT. [...] Culture. Procedure Abnormality Status --------- ------ Complete Urinalysis[[id number]] Please view results for these tests on [...] 12:20:12 PM PATIENT REFERRED TO: Moreno Oates [address] [place] [address] Schedule an appointment as soon as possible [...] Medicine Provider Marc Goodman DO 11/17/22 1648 [facility] 11-06-2022 Miscellaneous Notes Received 11/06/2022 from [facility] Placed in provider's inbox for review. Route to [place] for faxing documented in this encounter [facility] 10-10-2022 Miscellaneous Notes Received Rx request from [employer] [employer] [facility] for meds she has had filled [...] Moreno Oates MD documented in this encounter [facility] 10-01-2022 Miscellaneous Notes Pt in [facility]. The following approved medication requests have been transmitted electronically. Requested Prescriptions Signed Prescriptions Disp Refills diazePAM (VALIUM) 5 mg tablet 60 tablet 0 Sig: Take 1 tablet by mouth twice daily for 30 days. Authorizing Provider: MORENO OATES MD documented in this encounter [facility] 09-24-2022 Miscellaneous Notes [facility] Having worse headaches. Will try increased dose of Lyrica The following approved medication requests have been transmitted electronically. Requested Prescriptions Signed Prescriptions Disp Refills pregabalin (LYRICA) 150 mg capsule 60 capsule 0 Sig: Take 1 capsule by mouth twice daily for 30 days. Authorizing Provider: MORENO OATES MD documented in this encounter [facility] 09-19-2022 Miscellaneous Notes Fax sent to inform. Request for refill too early. These were filled by [facility] on 08/27 and 08/29. Patient's [...] Moreno Oates MD documented in this encounter [facility] 09-05-2022 Miscellaneous Notes Patient's request for medication [...] Moreno Oates MD documented in this encounter [facility] 08-29-2022 Miscellaneous Notes The following approved medication requests have been transmitted electronically. Requested Prescriptions Signed Prescriptions Disp Refills oxyCODONE-acetaminophen (PERCOCET) 5-325 mg tablet 120 tablet 0 Sig: Take 1 tablet by mouth every 6 hours for 30 days. Authorizing Provider: MORENO OATES Pharmacy Information Pharmacy Address Telephone [facility] [address] [place] [address] [facility] MD documented in this encounter [facility] 08-28-2022 Miscellaneous Notes Received lab results 08/28/22 from [facility]. Placed in provider's inbox for review. Route to MA scanning. documented in this encounter [facility] 08-11-2022 History of Present illness Narrative Images from the original note were not included. Ortho Knee Follow Up Note Narrative Referring Provider: Debbie Batista [address] [facility] [address] PCP: Moreno Oates MD IMPRESSION/PLAN: 67 year [...] ambulate. She is a resident in a senior care care facility. 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[facility]) Delirium Chronic Pain of Right Knee Hypotension History of Pulmonary Embolism Septic Arthritis ([facility]) Urinary Tract Infection Hypoxia Seizure ([facility]) Obesity, Class I, Bmi 30-34.9 Infection of Prosthetic Right Knee Joint ([facility]) Joint Infection ([facility]) Dysuria Septic Arthritis of Knee, Right ([facility]) Status post op: BMI: There is no [...] Debbie Batista PA-C documented in this encounter [facility] 07-30-2022 Miscellaneous Notes Received Notice of rule out for pasrr further review from [place] [employer]. Placed in provider's inbox for review. Route to MA scanning. documented in this encounter [facility] 07-29-2022 Miscellaneous Notes The following approved medication [...] Provider: MORENO OATES MD Refill request from [employer] documented in this encounter [facility] 07-26-2022 Miscellaneous Notes Request completed and faxed to Yoly at [facility] fax #[phone] with confirmation of receipt. PDMP reviewed 1 month supply sent Faxed Received fax from [employer] Placed on Dr. Clemons's desk for completion [phone] Still waiting for fax from Yoly, spoke to her again and had her send to another fax machine Yoly from [facility] left message on RN line stating she faxed an order to PCP office asking for Percocet order. States she talked to Dr. Oates who advised he is out of town and to contact public opinion survey taker physician for order. She is going to fax the form to [place] for the covering physician to review. Patient is out of medication and was due to receive this at 10 AM today for chronic pain. Please look out for order fax coming and return fax as soon as possible or advise Yoly. oxyCODONE-acetaminophen (PERCOCET) 5-325 mg tablet 05/13/22 -- Moreno Oates MD Take 1 tablet by mouth four times daily as needed for pain. Tamar RN called from [facility]. Patient needs this script filled as she only has 2 doses left. Please call Tamar at [phone] for any questions. Thank you. documented in this encounter [facility] 07-22-2022 Miscellaneous Notes Pt admitted at [facility]. PDMP website checked and validated. All [...] Moreno Oates MD Received refill request from [facility]. Refill pended. documented in this encounter [facility] 07-16-2022 Miscellaneous Notes Received lab results from [facility]. Placed in provider's inbox for review. Route to MA scanning. documented in this encounter [facility] 07-06-2022 History of Present illness Narrative Rx's phoned in over weekend for Lyrica and diazepam. Moreno Oates MD documented in this encounter [facility] 07-05-2022 Miscellaneous Notes Received pt update regarding being lowered to the floor (not a fall) from [employer]. Placed in provider's inbox for review. Route to MA scanning. documented in this encounter [facility] 06-25-2022 Miscellaneous Notes [facility] resident. The Rx was filled on 06/06. Sent approval for Rx's to be filled on 07/02 Received refill request from [facility]. Placed in provider's inbox for review. Route to MA fax documented in this encounter [facility] 06-18-2022 Miscellaneous Notes Received med orders from [facility]. Placed in provider's inbox for review. Route to [place] fax documented in this encounter [facility] 06-12-2022 Note HNO ID: [id number] Author: Karolina Taylor, [place] Service: Radiology Author Type: Technologist Type: Progress [...] BLAYNE Henderson June 12, 2022 3:37 PM [facility] 06-12-2022 History of Present illness Narrative Radiology [...] 2022 3:37 PM documented in this encounter [facility] 05-22-2022 Miscellaneous Notes Received lab results from [facility]. Placed in provider's inbox for review. Route to MA scanning documented in this encounter [facility] 05-21-2022 History of Present illness Narrative Radiology Service Progress Note PATIENT NAME: Charlie Nguyen RADIOLOGY DEPARTMENT: General X-ray: Exam(s) Completed: Lower Extremity X-Ray(s): Knee, AP / Lat / Merchant Left PERIPHERAL IV DATA: Not applicable SIGNED BY: RT Kaylen(R) May 21, 2022 1:10 PM documented in this encounter [facility] 05-21-2022 History of Present illness Narrative xr documented in this encounter [facility] 05-13-2022 Miscellaneous Notes The following approved medication [...] time. Please send in a new script. [facility] patient Check iwith 300 unit nurse , why are they requesting refill now, it was filled for 30 days on 04/26? Moreno Oates MD documented in this encounter [facility] 03-24-2022 Miscellaneous Notes Received request for pregabalin from [facility]/ [employer]. Placed in provider's inbox for review. Route to [facility] MARIA fax documented in this encounter [facility] 03-18-2022 Miscellaneous Notes Orders faxed. Doris for [employer] is asking that the mammogram orders be placed as soon as possible, as there is availability tomorrow for the testing to be done. Orders signed by Carlos Mejia APRN. Faxed to [facility] Received Mammogram order from [employer]. Placed in provider's inbox for review. Route to [place] fax documented in this encounter [facility] 03-17-[address] [facility] stated patient has upcoming appt with them. The need orders for bilateral diagnostic mammogram and unilateral US for left breast pain. Please fax to [phone] . documented in this encounter [facility] 03-11-2022 Miscellaneous Notes The following approved medication [...] MORENO OATES MD documented in this encounter [facility] 03-10-2022 Miscellaneous Notes Received lab results from [facility]. Placed in provider's inbox for review. Route to MA scanning. documented in this encounter [facility] 03-10-2022 Miscellaneous Notes Received pharmacy orders from [facility]/ [employer]. Placed in provider's inbox for review. Route to AK fax documented in this encounter [facility] 03-06-2022 Miscellaneous Notes Completed Request were sent with confirmation. [phone] Forms placed in Ma's file. Form was signed and completed and placed in outbox Please fax back Thanks Type of letter/form/fax request - refill Form received from [facility] Placed on MD desk () for completion. Completed form needs to be faxed to [phone]. Route to AK when form completed for processing documented in this encounter [facility] 02-13-2022 Miscellaneous Notes Received request for assessment of continued Nystatin from [employer]. Placed in provider's inbox for review. Route to [place] fax documented in this encounter [facility] 02-12-2022 Miscellaneous Notes Medication was refilled on 02/05/2022 Received refill request for diazepam 5mg tablets from [facility]. Faxed to covering provider pool. documented in this encounter [facility] 02-10-2022 Miscellaneous Notes Received labs from [facility]. Placed in provider's inbox for review. Route to MA scanning. documented in this encounter [facility] 02-05-2022 Miscellaneous Notes Received pharmacy orders from [employer] [facility]. Placed in provider's inbox for review. Route to MA fax documented in this encounter [facility] 01-07-2022 Miscellaneous Notes The following approved medication requests have been transmitted electronically. Requested Prescriptions Signed Prescriptions Disp Refills pregabalin (LYRICA) 100 mg capsule 60 capsule 0 Sig: Take 1 capsule by mouth twice daily for 30 days. Authorizing Provider: MORENO OATES MD documented in this encounter [facility] 12-30-2021 Miscellaneous Notes Received prescription request from [facility]/ [employer]. Placed in provider's inbox for review. Route to MA fax documented in this encounter [facility] 12-23-2021 Miscellaneous Notes Received pharmacy recommendation from [employer]. Placed in provider's inbox for review. Route to MA fax documented in this encounter [facility] 12-23-2021 Miscellaneous Notes Received request for oxycodone 5-325 from [facility]. Placed in provider's inbox for review. Route to MA fax documented in this encounter [facility] 12-09-2021 Miscellaneous Notes Received labs from [facility]. Placed in provider's inbox for review. Route to ANA MARIA scanning. documented in this encounter [facility] 12-03-2021 Miscellaneous Notes The following approved medication [...] No Authorizing Provider: MORENO OATES Pt in [facility]. She is seen monthly at facility Moreno Oates MD Last appointment: 12-12-19 Next appointment: na Pharmacy verified in [facility]. Refill(s) requested: Pending Prescriptions Disp Refills DIAZEPAM 5 MG TABLET 60 tablet 0 Sig: Take 1 tablet by mouth twice daily for 30 days. FABIOLA Class: C-IV LARISSA: No PREGABALIN 100 MG CAPSULE 60 capsule 0 Sig: Take 1 capsule by mouth twice daily for 30 days. FABIOLA Class: C-V LARISSA: No Order(s) pended. Please advise. Gabriela Castillo MA, [facility] documented in this encounter [facility] 11-25-2021 Miscellaneous Notes Fax sent. Received orders for Lyrica for PCP review and sign off from [facility] to be faxed to [facility]. Placed in provider's inbox for review. Route to MA fax documented in this encounter [facility] 11-21-2021 Miscellaneous Notes Received fax from [facility] that Pt c/o yeast infection. [facility] would like to know if any new orders are needed? Route to fax. documented in this encounter [facility] 11-19-2021 Miscellaneous Notes The following approved medication requests have been transmitted electronically. Signed Prescriptions Disp Refills oxyCODONE-acetaminophen (PERCOCET) 5-325 mg tablet 120 tablet 0 Sig: Take 1 tablet by mouth four times daily as needed for pain. FABIOLA Class: C-II LARISSA: No Authorizing Provider: MORENO OATES MD [facility] Tamar calling in regards to patients prescription: OxyCodone 5-325 mg tablet Pharmacy contacted them stating they only received a partial script and need a full script from provider. Pharmacy stated it was not signed and that things are missing from script. Tamar said to call pharmacy if any questions: [facility] documented in this encounter [facility] 11-19-2021 Miscellaneous Notes Received refill request from [facility]. Fax sent advising medication has been e-prescribed. documented in this encounter [facility] 11-18-2021 Miscellaneous Notes faxed Med refill request from [facility] for 4 tablets oxycodone 5-325 (pulled from starter box at [facility]). Placed in provider inbox for review. Route to fax. documented in this encounter [facility] 10-29-2021 Miscellaneous Notes The following approved medication requests have been transmitted electronically. Signed Prescriptions Disp Refills diazePAM (VALIUM) 5 mg tablet 60 tablet 0 Sig: Take 1 tablet by mouth twice daily for 30 days. FABIOLA Class: C-IV Authorizing Provider: MORENO OATES MD documented in this encounter [facility] 10-22-2021 Miscellaneous Notes Patient's request for medication [...] accordingly. Moreno Oates MD Pharmacy verified in [facility] Patient has been identified by [...] Fadumo Rahman LPN documented in this encounter [facility] 10-09-2021 Miscellaneous Notes Pt lives at [facility]. The following approved medication requests have been transmitted electronically. Signed Prescriptions Disp Refills diazePAM (VALIUM) 5 mg tablet 60 tablet 0 Sig: Take 1 tablet by mouth every 12 hours as needed for up to 30 days. FABIOLA Class: C-IV LARISSA: No Authorizing Provider: MORENO OATES Pharmacy Information Pharmacy Address Telephone [facility] [address] [place] [address] Moreno Oates MD documented in this encounter [facility] 10-08-2021 Miscellaneous Notes Received request for sign off for medication from [facility]. Placed in provider's inbox for review. Route to MA fax documented in this encounter [facility] 10-07-2021 Miscellaneous Notes Received labs from [facility]. Placed in provider's inbox for review. Route to MA scanning. documented in this encounter [facility] 10-04-2021 Miscellaneous Notes [facility] pt. The following approved medication requests have been transmitted electronically. Pending Prescriptions Disp Refills PREGABALIN 100 MG CAPSULE 60 capsule 0 Sig: Take 1 capsule by mouth twice daily for 30 days. FABIOLA Class: C-V LARISSA: No Moreno Oates MD Pharmacy verified in [facility] Patient has been identified by [...] Fadumo Rahman LPN documented in this encounter [facility] 09-27-2021 Miscellaneous Notes [facility] patient. documented in this encounter [facility] 08-27-2021 Miscellaneous Notes Addended by: SHAMIKA SILVEIRA on: 08/27/2021 01:58 PM Modules accepted: Orders Received 08/27/2021 from [facility]. Placed in provider's inbox for review. Route to [place] for faxing Order to be signed for Lyrica 100 mg BID documented in this encounter [facility] 08-26-2021 Miscellaneous Notes Pt at [facility], she's seen there monthly The following approved medication requests have been transmitted electronically. Signed Prescriptions Disp Refills diazePAM (VALIUM) 5 mg tablet 60 tablet 0 Sig: Take 1 tablet by mouth every 12 hours as needed for up to 30 days. FABIOLA Class: C-IV LARISSA: No Authorizing Provider: MORENO OATES MD Pharmacy verified in Epic Patient has [...] Shamika Silveira MA documented in this encounter [facility] 07-08-2021 Miscellaneous Notes Received 07/08/2021 from [facility] pharmacy. Placed in provider's inbox for review. Route to AK for scanning and fax. documented in this encounter [facility] 01-15-2021 Hospital Discharge instructions Nehal Madden DO - 01/15/2021 Please return to the ED for any fevers or shortness of breath. Otherwise resolved with your primary care physician as well as your orthopedic surgeon in the next few days. documented in this encounter [facility] Work Phone: 01-08-2021 Note HNO ID: [id number] Author: Jasen Ewing DO Service: Orthopaedic Surgery [...] ortho standpoint Please contact the orthopedic resident public opinion survey taker with any questions or concerns. ACTIVE PROBLEM [...] DO 01/08/2021 7:50 AM Orthopedic Surgery Resident [id number] [facility] 01-07-2021 Note HNO ID: [id number] Author: Jasen Ewing DO Service: Orthopaedic Surgery [...] previously instructed Please contact the orthopedic resident public opinion survey taker with any questions or concerns. ACTIVE PROBLEM [...] DO 01/07/2021 12:28 PM Orthopedic Surgery Resident [id number] [facility] 01-07-2021 Note HNO ID: [id number] Author: Brina Peterson RN Service: Care Management Author Type: Registered Nurse Type: Care Mgt Initial Assessment Filed: 01/07/2021 11:17 AM Note Text: CARE MANAGEMENT: ASSESSMENT AND DISCHARGE PLAN SERVICE DATE: January 07, 2021 SERVICE TIME: 11:00 AM PRIMARY CARE PHYSICIAN: Moreno Oates MD ADMISSION STATUS: Inpatient Needs Prior to Discharge: To Be Determined;Accepting Facility;Discharge Transportation;Discharge Prescriptions MEDICAL: [place] Patient/Application Support Lead Stated Goals: To have reduction in symptoms;Other [...] Current Advance Directive: Health Care Power of Hearth Feeder;Living Will In Chart: Yes Up To Date [...] facility) Has the Patient Been in a Retirement Facility in the Past 30 days?: Yes Location and Dates: [facility] (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) SOCIAL: Living Arrangements: Nursing Facility Facility Information: [facility] Financial Resources: Disabled Primary Contact: Extended Emergency Contact Information Primary Emergency Contact: Callum Nguyen Mobile Relation: Son Supportive Patient Contact:: Yes Contact Resources: Family;Other Family Name/Phone: Vicente Driscoll/daughter [phone] POA Name/Phone: Callum Nguyen/[phone] Caregiver AssessmentCaregiver is ready, willing and able to meet the patient's needs as recommended by the inter-professional team:: Other: See Comment (To be determined) Does the patient have an acute stroke diagnosis, or has the patient had a stroke during this admission?: No Patient's transition needs and plan for meeting these needs: patient states plan is to return to [facility] Patient's perception of need for this admission: right knee pain, fever Medication Adherance I am convinced of the importance of my prescription medication: 0 - Agree Completely I worry that my prescription medication will do more harm than good to me : 0 - Disagree Mostly I feel financially burdened by my okf-pi-wepodm expenses for my prescription medication:: 0 - Disagree Completely Risk Score: 0 Patient is categorized as: Low risk < 2 Are you interested in bedside delivery of your medications? No Is Patient Psychosocially Complex?: No ASSESSMENT AND PLAN: Medical Needs: Medical Needs: IV Antibiotics;Two or more chronic diseases;Fall risk or frequent falls Psychosocial Needs: Psychosocial Needs: None FREEDOM OF CHOICE EXPLAINED: Veteran of Choice Given: Yes (patient states plan is to return to [facility]) Provider list within the patient's requested geographic area shared with the patient/family: No Quality and resource use metrics shared with the patient that are relevant to the patient's goals of care and treatment preferences:: No Reason: patient decines states plan is to return to [facility] POTENTIAL TRANSITION PLANS To Be Determined;Retirement Facility/Intermediate Care Facility [facility] from [facility], for right knee pain AND fever. Patient states is senior care resident at facility and plan is to return when medically cleared for discharge. PCP Dr. Moreno Oates. SIGNATURE: Brina Peterson RN PATIENT NAME: Charlie Nguyen DATE: January 07, 2021 MR (more content not included)... [facility] 01-07-2021 Note HNO ID: [id number] Author: Jasen Ewing DO Service: Orthopaedic Surgery Author Type: Resident Type: Plan of Care Filed: 01/07/2021 10:44 AM Note Text: Orthopedic Surgery Plan of Care Note Charlie Nguyen Ok for diet. No operative intervention today. Will discuss further management with staff. Continue IV antibiotics. Please contact the orthopedic resident public opinion survey taker with any questions or concerns. Jasen Ewing DO 01/07/2021 10:43 AM Orthopedic Surgery Resident [id number] [facility] 01-07-2021 Note HNO ID: [id number] Author: Kristen Melton APRN.BENJAMIN Service: General Internal Medicine Author Type: Nurse Practitioner Type: Progress Notes Filed: 01/07/2021 6:44 AM Note Text: Attestation signed by Milton Fernandez MD at 01/07/2021 2:32 PM I have reviewed the above note obtained and documented by the PARAEDUCATOR/PA. I have discussed the case and management [...] 01/07/2021 0621 Last data filed at 01/06/2021 9316 Gross per 24 hour Intake 660 ml Output ? Net 660 ml Above Discussed with Dr Fernandez SIGNATURE: Kristen Melton APRN.SECRETARY TO THE VICE PRESIDENT DATE: January 07, 2021 TIME: 6:21 AM [facility] 12-26-2020 Note HNO ID: [id number] Author: Kimberli Israel RN Service: Care Management [...] Arrangements: Ambulance/[place] Transportation Agency and Phone #:: [employer] [phone] Date of Trip: 12/26/20 Time of Trip: 183 Type of Service: BLS Non-emergency Is Patient Medicaid Pending?: No Discussion of financial coverage occurred with: (N/A) Mold Inspector Location: [place] Destination: [facility] Financial Care Management Responsibility: None ADDITIONAL CONTACT RESOURCES: Discharge Information Row Name ED to Hosp-Admission (Current) from 12/19/2020 in [id number] Needs Prior to Discharge: Ready for Discharge Transportation Arrangements: Ambulance/[facility] [employer] Agency and Phone #:: [employer] [phone] Date of Trip: 12/26/20 Time of Trip: 183 Type of Service: BLS Non-emergency Is Patient Medicaid Pending?: No Discussion of financial coverage occurred with: (N/A) Mold Inspector Location: [place] Destination: [facility] Financial Care Management Responsibility: None Pt ready for d/c today. SIGNATURE: Kimberli Israel RN PATIENT NAME: Charlie Nguyen DATE: December 26, 2020 TIME: 4:48 PM PAGER/CONTACT #: Kimberli Israel [phone] or [phone] [facility] 12-26-2020 Note HNO ID: [id number] Author: Alexandria Reddy MD Service: Hospital Medicine Author Type: Physician Type: Progress Notes Filed: 12/26/2020 2:33 PM Note Text: DEPARTMENT OF HOSPITAL MEDICINE PROGRESS NOTE SERVICE DATE: 12/26/2020 SERVICE TIME: 2:31 PM Hospital Medicine/Primary Attending: Alexandria Reddy MD NIGHT AND WEEKEND COVERAGE: Patient admitted to [facility]. Page [phone] between 7 am and 5 pm for patient issues; from 5 p to 7 am, page the night hospitalist at pager [phone] Subjective INTERVAL HPI: Diarrhea improving Issues with [...] cap(s) (LYRICA) 100 mg ORAL BID - rrlovba-eawxzsffh-lokfnwu D3 500 mg(1,250mg) -200 unit 2 tablet [...] Inserted (PICC) Left Arm Through Introducer 4.0 Swedish 5 days Drain External Collection Device 12/21/20 0930 5 days DATA: Diagnostic tests reviewed for today's visit: Most recent labs Most recent imaging Assessment/Plan Problem List Joint infection (HCC) POA: Yes Acute deep vein thrombosis (DVT) of right lower extremity (HCC) POA: Yes MS (multiple sclerosis) ([facility]) POA: Yes Essential hypertension POA: Yes Current smoker POA: Yes Chronic pain of right knee POA: Yes Seizure ([facility]) POA: Yes Dysuria POA: . HOSPITAL COURSE: [...] is after POD5 ? MS (multiple sclerosis) ([facility]) POA: Yes WC bound Urine and fecal [...] mg ORAL 2 TIMES DAILY Given, 12/26 0821 12/25/20 1344 -- 12/19/202014 pneumatic compression stockings (wa,oh) 12/19/20 0900 activ (more content not included)... [facility] 12-25-2020 Note HNO ID: [id number] Author: Alexandria Reddy MD Service: Hospital Medicine Author Type: Physician Type: Progress Notes Filed: 12/25/2020 1:43 PM Note Text: DEPARTMENT OF HOSPITAL MEDICINE PROGRESS NOTE SERVICE DATE: 12/25/2020 SERVICE TIME: 1:35 PM Hospital Medicine/Primary Attending: Alexandria Reddy MD NIGHT AND WEEKEND COVERAGE: Patient admitted to [facility]. Page [phone] between 7 am and 5 pm for patient issues; from 5 p to 7 am, page the night hospitalist at pager [phone] Subjective INTERVAL HPI: Issues with hypotension earlier. [...] cap(s) (LYRICA) 100 mg ORAL BID - xtyfbib-iztjxtolu-phnbaeh D3 500 mg(1,250mg) -200 unit 2 tablet [...] Inserted (PICC) Left Arm Through Introducer 4.0 Swedish 4 days Drain External Collection Device 12/21/20 0930 4 days DATA: Diagnostic tests reviewed for today's visit: Most recent labs Most recent imaging Assessment/Plan Problem List Joint infection (HCC) POA: Yes Acute deep vein thrombosis (DVT) of right lower extremity (HCC) POA: Yes MS (multiple sclerosis) ([facility]) POA: Yes Essential hypertension POA: Yes Current smoker POA: Yes Chronic pain of right knee POA: Yes Seizure ([facility]) POA: Yes Dysuria POA: . HOSPITAL COURSE: [...] is after POD5 ? MS (multiple sclerosis) ([facility]) POA: Yes WC bound Urine and fecal [...] Last Action Orde (more content not included)... [facility] 12-25-2020 Note HNO ID: [id number] Author: Sanjana Tarango MD Service: Infectious Disease [...] cap(s) (LYRICA) 100 mg ORAL BID - ucmvomw-cxfsznmab-apwterw D3 500 mg(1,250mg) -200 unit 2 tablet [...] every Thursday faxed to Sanjana Tarango at [phone] [place] for d/c from ID standpoint Sanjana Tarango MD [employer] [facility] Contact#: [phone] [facility] 12-24-2020 Note HNO ID: [id number] Author: Alexandria Reddy MD Service: Hospital Medicine Author Type: Physician Type: Progress Notes Filed: 12/24/2020 2:59 PM Note Text: DEPARTMENT OF HOSPITAL MEDICINE PROGRESS NOTE SERVICE DATE: 12/24/2020 SERVICE TIME: 2:55 PM Hospital Medicine/Primary Attending: Alexandria Reddy MD NIGHT AND WEEKEND COVERAGE: Patient admitted to -1. Page [phone] between 7 am and 5 pm for patient issues; from 5 p to 7 am, page the night hospitalist at pager [phone] Subjective INTERVAL HPI: Complaining that the nurses [...] cap(s) (LYRICA) 100 mg ORAL BID - wjijesq-pkrmisrqz-dzvowxz D3 500 mg(1,250mg) -200 unit 2 tablet [...] Inserted (PICC) Left Arm Through Introducer 4.0 Swedish 3 days Drain External Collection Device 12/21/20 0930 3 days DATA: Diagnostic tests reviewed for today's visit: Most recent labs Most recent imaging Assessment/Plan Problem List Joint infection (HCC) POA: Yes Acute deep vein thrombosis (DVT) of right lower extremity (HCC) POA: Yes MS (multiple sclerosis) ([facility]) POA: Yes Essential hypertension POA: Yes Current smoker POA: Yes Chronic pain of right knee POA: Yes Seizure ([facility]) POA: Yes Dysuria POA: . HOSPITAL COURSE: [...] resume eliquis tomorrow. ? MS (multiple sclerosis) ([facility]) POA: Yes WC bound Urine and fecal incontinence LE parasthesia ? Essential hypertension POA: Yes Controlled - Continue Metoprolol; hold HCTZ? ? Current smoker POA: Yes - Nicotine patches ? Seizure ([facility]) POA: Yes - Continue Depakote ? Depressoin/Anxiety - c/w paxil and seroquil Medication and Non-Pharmacologic VTE Prophylaxis/Anticoagulants Anticoagulant AND Antiplatelet Medications (From admission, onward) Start Dose Route Frequency Last Action Ordered Stop 12/20/20 0900 enoxaparin 40 mg injection (LOVENOX) (Surgical Risk Categories) 40 mg SUBCUTANEOUS EVERY 24 HOURS Given, 12/24 0912/19/20 (more content not included)... [facility] 12-24-2020 Note HNO ID: [id number] Author: Sanjana Tarango MD Service: Infectious Disease [...] cap(s) (LYRICA) 100 mg ORAL BID - prywpfb-cghvcwpdp-rdiqpyt D3 500 mg(1,250mg) -200 unit 2 tablet [...] AM Sanjana Tarango MD [employer] [facility] Contact#: [phone] [facility] 12-23-2020 Note HNO ID: [id number] Author: Alexandria Reddy MD Service: Hospital Medicine Author Type: Physician Type: Progress Notes Filed: 12/23/2020 2:21 PM Note Text: DEPARTMENT OF HOSPITAL MEDICINE PROGRESS NOTE SERVICE DATE: 12/23/2020 SERVICE TIME: 2:20 PM Hospital Medicine/Primary Attending: Alexandria Reddy MD NIGHT AND WEEKEND COVERAGE: Patient admitted to [facility]. Page [phone] between 7 am and 5 pm for patient issues; from 5 p to 7 am, page the night hospitalist at pager [phone] Subjective INTERVAL HPI: Patient continues to complain [...] cap(s) (LYRICA) 100 mg ORAL BID - cwhcqaz-hfkdzvrqk-hdlrwyr D3 500 mg(1,250mg) -200 unit 2 tablet [...] Inserted (PICC) Left Arm Through Introducer 4.0 Swedish 2 days Drain External Collection Device 12/21/20 0930 2 days DATA: Diagnostic tests reviewed for today's visit: Most recent labs Most recent imaging Assessment/Plan Problem List Joint infection (HCC) POA: Yes Acute deep vein thrombosis (DVT) of right lower extremity (HCC) POA: Yes MS (multiple sclerosis) ([facility]) POA: Yes Essential hypertension POA: Yes Current [...] lonvenox for now ? MS (multiple sclerosis) ([facility]) POA: Yes WC bound Urine and fecal [...] 1025 12/19/202004 -- 12/19/202014 pneumatic compression stockings (wa,oh) 12/19/20 0900 activity - mobilize patient (more content not included)... [facility] 07-24-2021 Note HNO ID: [id number] Author: Alexandria Reddy MD Service: Hospital Medicine Author Type: Physician Type: Progress Notes Filed: 12/22/2020 3:25 PM Note Text: DEPARTMENT OF HOSPITAL MEDICINE PROGRESS NOTE SERVICE DATE: 12/22/2020 SERVICE TIME: 3:21 PM Hospital Medicine/Primary Attending: Alexandria Reddy MD NIGHT AND WEEKEND COVERAGE: Patient admitted to [facility]. Page [phone] between 7 am and 5 pm for patient issues; from 5 p to 7 am, page the night hospitalist at pager [phone] Subjective INTERVAL HPI: Patient seem drowsy but [...] cap(s) (LYRICA) 100 mg ORAL BID - fteznax-vgshngpyw-kiqgeiy D3 500 mg(1,250mg) -200 unit 2 tablet [...] Inserted (PICC) Left Arm Through Introducer 4.0 Swedish 1 day Drain External Collection Device 12/21/20 0930 1 day DATA: Diagnostic tests reviewed for today's visit: Most recent labs Most recent imaging Assessment/Plan Problem List Joint infection (HCC) POA: Yes Acute deep vein thrombosis (DVT) of right lower extremity (HCC) POA: Yes MS (multiple sclerosis) ([facility]) POA: Yes Essential hypertension POA: Yes Current [...] 12/22 93212/19/202004 -- 12/19/202014 pneumatic compression stockings ([place]) 12/19/20 0900 activity - mobilize patient ([place] VTE Prophylaxis: VTE prop (more content not included)... [facility] 12-22-2020 Note HNO ID: [id number] Author: Jasen Ewing DO Service: Orthopaedic Surgery [...] sign off Please contact the orthopedic resident public opinion survey taker with any questions or concerns. ACTIVE PROBLEM LIST Osteoarthritis of Right Knee Ms (Multiple Sclerosis) ([facility]) Essential Hypertension Lumbar Disc Herniation Current Smoker Knee Pain Primary Osteoarthritis of Left Knee Gastroesophageal Reflux Disease Without Esophagitis Headache S/P Total Knee Arthroplasty Extensor Tendon Disruption Knee Pain, Right S/P Revision of Total Knee, Right Rupture of Quadriceps Muscle Acute Deep Vein Thrombosis (Dvt) of Right Lower Extremity (Hcc) Acute Respiratory Failure With Hypoxia ([facility]) Chronic Pain Syndrome Chronic Prescription Benzodiazepine Use Chronic Prescription Opiate Use Repeat Prescription Issue Mechanical Complication of Internal Orthopedic Device, Implant Or Graft ([facility]) Failed Total Knee Arthroplasty ([facility]) Delirium Chronic Pain of Right Knee Hypotension History of Pulmonary Embolism Septic Arthritis (Hcc) Urinary Tract Infection Hypoxia Seizure (Hcc) Obesity, Class I, Bmi 30-34.9 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 Author Type: ? Type: Progress Notes Filed: 12/22/2020 2:51 AM Note Text: [facility] Scheduled Downtime: 12/22/2020 1:01:00 AM to 12/22/2020 2:33:00 AM [facility] 12-21-2020 Note HNO ID: [id number] Author: Maricel Levy MD Service: Hospital Medicine Author Type: Physician Type: Progress Notes Filed: 12/21/2020 4:16 PM Note Text: DEPARTMENT OF HOSPITAL MEDICINE PROGRESS NOTE SERVICE DATE: December 21, 2020 SERVICE TIME: 10:42 AM Hospital Medicine/Primary Attending: Maricel Levy MD NIGHT AND WEEKEND COVERAGE: NIGHT AND WEEKEND COVERAGE: [facility] COVERAGE: Patient admitted to Hospitalist Service From 0700 - 163, please contact pager listed in Epic for patient issues. From 1630 - 07, please contact the Night Hospitalist on pager [phone] for patient issues. Subjective INTERVAL HPI: No [...] Inserted (PICC) Left Arm Through Introducer 4.0 Swedish <1 day Drain External Collection Device 12/21/20 [...] after POD5 (today POD2) MS (multiple sclerosis) ([facility]) POA: Yes WC bound Urine and fecal [...] 21, 2020 TIME: 4:16 PM PAGER/CONTACT #: [phone] [facility] 12-21-2020 Note HNO ID: [id number] Author: Chaitanya Champagne RN Service: PICC Team Author Type: Registered Nurse Type: Procedures Filed: 12/21/2020 12:55 PM Note Text: PICC NURSE INSERTION NOTE DATE OF PROCEDURE: December 21, 2020 TIME OF PROCEDURE: 1120 ORDERING PHYSICIAN: Dr. Sanjana Tarango INFORMED CONSENT: Obtained per hospital policy. INDICATION FOR LINE PLACEMENT: COPAT CONDITION OF LINE PLACEMENT: Sterile PRIMARY PROCEDURALIST: Chaitanya Champagne R.N. [facility] INFANT AND TODDLER TEACHER: Kimberly Headley R.N. PRE-PROCEDURE REVIEW ALLERGIES Allergen Reactions - Nsaids (Non-Steroid* GI Upset - Gabapentin GI Upset - Macrobid [Nitrofura* Hives - Tramadol Contraindication-Medical Surgical Drug interaction with amitriptyline - told not to take due to increased seizure risk - [place] [Hydrocodone-* GI Upset Didn't do anything for [...] applicable. Chaitanya Champagne RN CATHETER PLACEMENT Brand: FatRedCouch Lot: [id number] Number of Lumens: 1 Type of PICC: Power Injectable PICC Lumen Size: 4 Swedish PLACEMENT TECHNIQUE Lidocaine: Yes, Lidocaine 1% Volume [...] patient, Report provided to Ali bedside nurse. [place] limb alert applied The [facility] Central Line Insertion checklist, attached to the Central Line-Associated Bloodstream Infection Prevention Policy, was utilized during this procedure. QUESTIONS or PROBLEMS: [facility] radiology PICC Nurse SIGNATURE: Chaitanya Champagne RN PATIENT NAME: Charlie Nguyen DATE: December 21, 2020 TIME: 12:47 PM PA (more content not included)... [facility] 12-21-2020 Note HNO ID: [id number] Author: Sandra Cruz RN Service: Care Management [...] ID recs Thursday. Plan to return to [facility] on dc, updated notes sent to facility. Will require updated COVID prior to discharge. SIGNATURE: Sandra Cruz RN PATIENT NAME: Charlie Nguyen DATE: December 21, 2020 TIME: 10:50 AM PAGER/CONTACT #: [phone] [facility] 12-21-2020 Note HNO ID: [id number] Author: Jasen Ewing DO Service: Orthopaedic Surgery [...] needs facility Please contact the orthopedic resident public opinion survey taker with any questions or concerns. ACTIVE PROBLEM [...] DO 12/21/2020 9:25 AM Orthopedic Surgery Resident [id number] [facility] 12-21-2020 Note HNO ID: [id number] Author: Sanjana Tarango MD Service: Infectious Disease [...] cap(s) (LYRICA) 100 mg ORAL BID - wanenct-ggnxwcnth-hrgzcbq D3 500 mg(1,250mg) -200 unit 2 tablet [...] concerns. Sanjana Tarango MD [employer] Contact#: [phone] [facility] 12-20-2020 Note HNO ID: [id number] Author: Maricel Levy MD Service: Hospital Medicine Author Type: Physician Type: Progress Notes Filed: 12/20/2020 4:55 PM Note Text: DEPARTMENT OF HOSPITAL MEDICINE PROGRESS NOTE SERVICE DATE: December 20, 2020 SERVICE TIME: 3:42 PM Hospital Medicine/Primary Attending: Maricel Levy MD NIGHT AND WEEKEND COVERAGE: NIGHT AND WEEKEND COVERAGE: [facility] COVERAGE: Patient admitted to Hospitalist Service From 0700 - 1630, please contact pager listed in Epic for patient issues. From 1630 - 0700, please contact the Night Hospitalist on pager [phone] for patient issues. Subjective INTERVAL HPI: No [...] 20, 2020 TIME: 4:55 PM PAGER/CONTACT #: [phone] [facility] 12-20-2020 Note HNO ID: [id number] Author: Fadumo Tinsley PA-C Service: Anesthesiology Author Type: Physician Animal Shelter Worker Type: Progress Notes Filed: 12/20/2020 9:06 [...] of Systems Cardiovascular (-) chest pain, palpitations PLANNER CHIEF (+) numbness within ditribution of block NEURO [...] take due to increased seizure risk - [place] [Hydrocodone-* GI Upset Didn't do anything for [...] cap(s) (LYRICA) 100 mg ORAL BID - pdburjv-nfldtujam-bdokdhv D3 500 mg(1,250mg) -200 unit 2 tablet [...] DATE: December 20, 2020 TIME: 8:59 AM [facility] 12-20-2020 Note HNO ID: [id number] Author: Jasen Ewing DO Service: Orthopaedic Surgery [...] PT recs Please contact the orthopedic resident public opinion survey taker with any questions or concerns. ACTIVE PROBLEM [...] DO 12/20/2020 8:37 AM Orthopedic Surgery Resident [id number] [facility] 12-19-2020 Note HNO ID: [id number] Author: Aubrey Jensen MD Service: Hospital Medicine Author Type: Physician Type: Plan of Care Filed: 12/19/2020 9:32 PM Note Text: Patient reports of taking percocet POA>. Reviewed PDMP. Ordered percocet overnight. Primary team to reassess in am. [facility] 12-19-2020 Note HNO ID: [id number] Author: Tenisha Ly APRN.CRNA Service: Anesthesiology Author Type: Nurse Equipment Driver Type: Anesthesia Procedure Notes Filed: 12/19/2020 3:49 PM Note Text: ANESTHESIOLOGY PROCEDURE NOTE PIV General Information Patient Location: OR Staffing MICA PASTER: Tenisha Ly APRN.CRNA Preparation Sterility Preparation: hand hygiene performed prior to procedure, surgical cap used, mask used, skin prep agent completely dried prior to procedure Site Prep: alcohol Procedure Details Indication: need for IV access Needle Size/Type: 18 gauge angiocath Orientation: Left Location: Forearm Imaging Guidance Used: No SIGNATURE: Tenisha Ly APRN.CRNA PATIENT NAME: Charlie Nguyen DATE: December 19, 2020 TIME: 3:49 PM CSN: [id number] [facility] 12-19-2020 Note HNO ID: [id number] Author: Tenisha Ly APRN.CRNA Service: Anesthesiology Author Type: Nurse Equipment Driver Type: Anesthesia Procedure Notes Filed: 12/19/2020 3:49 PM Note Text: ANESTHESIOLOGY PROCEDURE NOTE Airway General Information Procedure Start Time/Medication Administration: 12/19/2020 3:40 PM Patient location during procedure: OR Patient identity confirmed: arm band Staffing MICA PASTER: Tenisha Ly APRN.CRNA Indications and Patient Condition [...] at approach: 1 Airway not difficult SIGNATURE: Tenisah Ly APRN.CRNA PATIENT NAME: Charlie Nguyen DATE: December 19, 2020 TIME: 3:48 PM CSN: [id number] [facility] 12-19-2020 Note HNO ID: [id number] Author: Radha Mcpherson MD Service: Anesthesiology Author Type: Anesthesiologist Type: Anesthesia Procedure Notes Filed: 12/19/2020 2:33 PM Note Text: ANESTHESIOLOGY PROCEDURE NOTE Peripheral Nerve Block General Information Procedure Start Time/Medication Administration: 12/19/2020 2:00 PM Procedure End time: 12/19/2020 2:03 PM Patient location during procedure: pre-op Timeout Performed Pre-procedure: timeout performed Consent Obtained: Yes Patient identity confirmed: arm band, 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 bridge/structure 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 Reason for block: post-op pain [...] December 19, 2020 TIME: 2:32 PM CSN: [id number] [facility] 12-19-2020 Note HNO ID: [id number] Author: Senait Girard RN Service: Nursing Author Type: Registered Nurse Type: Nursing Progress Note Filed: 12/19/2020 2:04 PM Note Text: NO sedation used except local Patient tolerated procedure very well [facility] 11-26-2017 History of Past i llness [...] Overview: Added automatically from request for surgery [id number] Acute pain of right knee 06/25/2017 018 Overview: Added automatically from request for surgery [id number] Patellar dislocation, right, initial encounter 1 06/20/2016 04/21/2017 Status post total knee replacement using cement, right 04/16/2017 04/21/2017 Overview: Added automatically from request for surgery [id number] Acute pain of right knee 04/16/2017 017 Overview: Added automatically from request for surgery [id number] SUMMARY 04/03/2017 04/17/2017 Overview: Admit date: 04/03/2017 Reason for Admission/Observation: Unable to function Presentation: Patient is a 61-year-old female with PMH of AL, osteoarthritis, MRSA and herniated disc of the [...] of this encounter (statuses as of 08/26/2021) [facility] History of Past illness Narrative* Problem Noted [...] Overview: Added automatically from request for surgery [id number] Acute pain of right knee 06/25/2017 018 Overview: Added automatically from request for surgery [id number] Patellar dislocation, right, initial encounter 1 06/20/2016 04/21/2017 Status post total knee replacement using cement, right 04/16/2017 04/21/2017 Overview: Added automatically from request for surgery [id number] Acute pain of right knee 04/16/2017 017 Overview: Added automatically from request for surgery [id number] SUMMARY 04/03/2017 04/17/2017 Overview: Admit date: 04/03/2017 Reason for Admission/Observation: Unable to function Presentation: Patient is a 61-year-old female with PMH of AL, osteoarthritis, MRSA and herniated disc of the [...] of this encounter (statuses as of 08/27/2021) [facility] History of Past illness Narrative* Problem Noted [...] Overview: Added automatically from request for surgery [id number] Acute pain of right knee 06/25/2017 018 Overview: Added automatically from request for surgery [id number] Patellar dislocation, right, initial encounter 1 06/20/2016 04/21/2017 Status post total knee replacement using cement, right 04/16/2017 04/21/2017 Overview: Added automatically from request for surgery [id number] Acute pain of right knee 04/16/2017 017 Overview: Added automatically from request for surgery [id number] SUMMARY 04/03/2017 04/17/2017 Overview: Admit date: 04/03/2017 Reason for Admission/Observation: Unable to function Presentation: Patient is a 61-year-old female with PMH of AL, osteoarthritis, MRSA and herniated disc of the [...] of this encounter (statuses as of 08/27/2021) [facility] History of Past illness Narrative* Problem Noted [...] Overview: Added automatically from request for surgery [id number] Acute pain of right knee 06/25/2017 018 Overview: Added automatically from request for surgery [id number] Patellar dislocation, right, initial encounter 1 06/20/2016 04/21/2017 Status post total knee replacement using cement, right 04/16/2017 04/21/2017 Overview: Added automatically from request for surgery [id number] Acute pain of right knee 04/16/2017 017 Overview: Added automatically from request for surgery [id number] SUMMARY 04/03/2017 04/17/2017 Overview: Admit date: 04/03/2017 Reason for Admission/Observation: Unable to function Presentation: Patient is a 61-year-old female with PMH of AL, osteoarthritis, MRSA and herniated disc of the [...] of this encounter (statuses as of 09/27/2021) [facility] History of Past illness Narrative* Problem Noted [...] Overview: Added automatically from request for surgery [id number] Acute pain of right knee 06/25/2017 018 Overview: Added automatically from request for surgery [id number] Patellar dislocation, right, initial encounter 1 06/20/2016 04/21/2017 Status post total knee replacement using cement, right 04/16/2017 04/21/2017 Overview: Added automatically from request for surgery [id number] Acute pain of right knee 04/16/2017 017 Overview: Added automatically from request for surgery [id number] SUMMARY 04/03/2017 04/17/2017 Overview: Admit date: 04/03/2017 Reason for Admission/Observation: Unable to function Presentation: Patient is a 61-year-old female with PMH of AL, osteoarthritis, MRSA and herniated disc of the [...] of this encounter (statuses as of 10/04/2021) [facility] History of Past illness Narrative* Problem Noted [...] Overview: Added automatically from request for surgery [id number] Acute pain of right knee 06/25/2017 018 Overview: Added automatically from request for surgery [id number] Patellar dislocation, right, initial encounter 1 06/20/2016 04/21/2017 Status post total knee replacement using cement, right 04/16/2017 04/21/2017 Overview: Added automatically from request for surgery [id number] Acute pain of right knee 04/16/2017 017 Overview: Added automatically from request for surgery [id number] SUMMARY 04/03/2017 04/17/2017 Overview: Admit date: 04/03/2017 Reason for Admission/Observation: Unable to function Presentation: Patient is a 61-year-old female with PMH of AL, osteoarthritis, MRSA and herniated disc of the [...] of this encounter (statuses as of 10/07/2021) [facility] History of Past illness Narrative* Problem Noted [...] Overview: Added automatically from request for surgery [id number] Acute pain of right knee 06/25/2017 018 Overview: Added automatically from request for surgery [id number] Patellar dislocation, right, initial encounter 1 06/20/2016 04/21/2017 Status post total knee replacement using cement, right 04/16/2017 04/21/2017 Overview: Added automatically from request for surgery [id number] Acute pain of right knee 04/16/2017 017 Overview: Added automatically from request for surgery [id number] SUMMARY 04/03/2017 04/17/2017 Overview: Admit date: 04/03/2017 Reason for Admission/Observation: Unable to function Presentation: Patient is a 61-year-old female with PMH of AL, osteoarthritis, MRSA and herniated disc of the [...] of this encounter (statuses as of 10/08/2021) [facility] History of Past illness Narrative* Problem Noted [...] Overview: Added automatically from request for surgery [id number] Acute pain of right knee 06/25/2017 018 Overview: Added automatically from request for surgery [id number] Patellar dislocation, right, initial encounter 1 06/20/2016 04/21/2017 Status post total knee replacement using cement, right 04/16/2017 04/21/2017 Overview: Added automatically from request for surgery [id number] Acute pain of right knee 04/16/2017 017 Overview: Added automatically from request for surgery [id number] SUMMARY 04/03/2017 04/17/2017 Overview: Admit date: 04/03/2017 Reason for Admission/Observation: Unable to function Presentation: Patient is a 61-year-old female with PMH of AL, osteoarthritis, MRSA and herniated disc of the [...] of this encounter (statuses as of 10/14/2021) [facility] History of Past illness Narrative* Problem Noted [...] Overview: Added automatically from request for surgery [id number] Acute pain of right knee 06/25/2017 018 Overview: Added automatically from request for surgery [id number] Patellar dislocation, right, initial encounter 1 06/20/2016 04/21/2017 Status post total knee replacement using cement, right 04/16/2017 04/21/2017 Overview: Added automatically from request for surgery [id number] Acute pain of right knee 04/16/2017 017 Overview: Added automatically from request for surgery [id number] SUMMARY 04/03/2017 04/17/2017 Overview: Admit date: 04/03/2017 Reason for Admission/Observation: Unable to function Presentation: Patient is a 61-year-old female with PMH of AL, osteoarthritis, MRSA and herniated disc of the [...] of this encounter (statuses as of 10/22/2021) [facility] History of Past illness Narrative* Problem Noted [...] Overview: Added automatically from request for surgery [id number] Acute pain of right knee 06/25/2017 018 Overview: Added automatically from request for surgery [id number] Patellar dislocation, right, initial encounter 1 06/20/2016 04/21/2017 Status post total knee replacement using cement, right 04/16/2017 04/21/2017 Overview: Added automatically from request for surgery [id number] Acute pain of right knee 04/16/2017 017 Overview: Added automatically from request for surgery [id number] SUMMARY 04/03/2017 04/17/2017 Overview: Admit date: 04/03/2017 Reason for Admission/Observation: Unable to function Presentation: Patient is a 61-year-old female with PMH of AL, osteoarthritis, MRSA and herniated disc of the [...] of this encounter (statuses as of 10/29/2021) [facility] History of Past illness Narrative* Problem Noted [...] Overview: Added automatically from request for surgery [id number] Acute pain of right knee 06/25/2017 018 Overview: Added automatically from request for surgery [id number] Patellar dislocation, right, initial encounter 1 06/20/2016 04/21/2017 Status post total knee replacement using cement, right 04/16/2017 04/21/2017 Overview: Added automatically from request for surgery [id number] Acute pain of right knee 04/16/2017 017 Overview: Added automatically from request for surgery [id number] SUMMARY 04/03/2017 04/17/2017 Overview: Admit date: 04/03/2017 Reason for Admission/Observation: Unable to function Presentation: Patient is a 61-year-old female with PMH of AL, osteoarthritis, MRSA and herniated disc of the [...] of this encounter (statuses as of 11/18/2021) [facility] History of Past illness Narrative* Problem Noted [...] Overview: Added automatically from request for surgery [id number] Acute pain of right knee 06/25/2017 018 Overview: Added automatically from request for surgery [id number] Patellar dislocation, right, initial encounter 1 06/20/2016 04/21/2017 Status post total knee replacement using cement, right 04/16/2017 04/21/2017 Overview: Added automatically from request for surgery [id number] Acute pain of right knee 04/16/2017 017 Overview: Added automatically from request for surgery [id number] SUMMARY 04/03/2017 04/17/2017 Overview: Admit date: 04/03/2017 Reason for Admission/Observation: Unable to function Presentation: Patient is a 61-year-old female with PMH of AL, osteoarthritis, MRSA and herniated disc of the [...] of this encounter (statuses as of 11/19/2021) [facility] History of Past illness Narrative* Problem Noted [...] Overview: Added automatically from request for surgery [id number] Acute pain of right knee 06/25/2017 018 Overview: Added automatically from request for surgery [id number] Patellar dislocation, right, initial encounter 1 06/20/2016 04/21/2017 Status post total knee replacement using cement, right 04/16/2017 04/21/2017 Overview: Added automatically from request for surgery [id number] Acute pain of right knee 04/16/2017 017 Overview: Added automatically from request for surgery [id number] SUMMARY 04/03/2017 04/17/2017 Overview: Admit date: 04/03/2017 Reason for Admission/Observation: Unable to function Presentation: Patient is a 61-year-old female with PMH of AL, osteoarthritis, MRSA and herniated disc of the [...] of this encounter (statuses as of 11/20/2021) [facility] History of Past illness Narrative* Problem Noted [...] Overview: Added automatically from request for surgery [id number] Acute pain of right knee 06/25/2017 018 Overview: Added automatically from request for surgery [id number] Patellar dislocation, right, initial encounter 1 06/20/2016 04/21/2017 Status post total knee replacement using cement, right 04/16/2017 04/21/2017 Overview: Added automatically from request for surgery [id number] Acute pain of right knee 04/16/2017 017 Overview: Added automatically from request for surgery [id number] SUMMARY 04/03/2017 04/17/2017 Overview: Admit date: 04/03/2017 Reason for Admission/Observation: Unable to function Presentation: Patient is a 61-year-old female with PMH of AL, osteoarthritis, MRSA and herniated disc of the [...] of this encounter (statuses as of 11/21/2021) [facility] History of Past illness Narrative* Problem Noted [...] Overview: Added automatically from request for surgery [id number] Acute pain of right knee 06/25/2017 018 Overview: Added automatically from request for surgery [id number] Patellar dislocation, right, initial encounter 1 06/20/2016 04/21/2017 Status post total knee replacement using cement, right 04/16/2017 04/21/2017 Overview: Added automatically from request for surgery [id number] Acute pain of right knee 04/16/2017 017 Overview: Added automatically from request for surgery [id number] SUMMARY 04/03/2017 04/17/2017 Overview: Admit date: 04/03/2017 Reason for Admission/Observation: Unable to function Presentation: Patient is a 61-year-old female with PMH of AL, osteoarthritis, MRSA and herniated disc of the [...] of this encounter (statuses as of 11/25/2021) [facility] History of Past illness Narrative* Problem Noted [...] Overview: Added automatically from request for surgery [id number] Acute pain of right knee 06/25/2017 018 Overview: Added automatically from request for surgery [id number] Patellar dislocation, right, initial encounter 1 06/20/2016 04/21/2017 Status post total knee replacement using cement, right 04/16/2017 04/21/2017 Overview: Added automatically from request for surgery [id number] Acute pain of right knee 04/16/2017 017 Overview: Added automatically from request for surgery [id number] SUMMARY 04/03/2017 04/17/2017 Overview: Admit date: 04/03/2017 Reason for Admission/Observation: Unable to function Presentation: Patient is a 61-year-old female with PMH of AL, osteoarthritis, MRSA and herniated disc of the [...] of this encounter (statuses as of 12/03/2021) [facility] [place] History of Past illness Narrative* Problem Noted [...] Overview: Added automatically from request for surgery [id number] Acute pain of right knee 06/25/2017 018 Overview: Added automatically from request for surgery [id number] Patellar dislocation, right, initial encounter 1 06/20/2016 04/21/2017 Status post total knee replacement using cement, right 04/16/2017 04/21/2017 Overview: Added automatically from request for surgery [id number] Acute pain of right knee 04/16/2017 017 Overview: Added automatically from request for surgery [id number] SUMMARY 04/03/2017 04/17/2017 Overview: Admit date: 04/03/2017 Reason for Admission/Observation: Unable to function Presentation: Patient is a 61-year-old female with PMH of AL, osteoarthritis, MRSA and herniated disc of the [...] of this encounter (statuses as of 12/09/2021) [facility] [place] History of Past illness Narrative* Problem Noted [...] Overview: Added automatically from request for surgery [id number] Acute pain of right knee 06/25/2017 018 Overview: Added automatically from request for surgery [id number] Patellar dislocation, right, initial encounter 1 06/20/2016 04/21/2017 Status post total knee replacement using cement, right 04/16/2017 04/21/2017 Overview: Added automatically from request for surgery [id number] Acute pain of right knee 04/16/2017 017 Overview: Added automatically from request for surgery [id number] SUMMARY 04/03/2017 04/17/2017 Overview: Admit date: 04/03/2017 Reason for Admission/Observation: Unable to function Presentation: Patient is a 61-year-old female with PMH of AL, osteoarthritis, MRSA and herniated disc of the [...] of this encounter (statuses as of 12/23/2021) [facility] [place] History of Past illness Narrative* Problem Noted [...] Overview: Added automatically from request for surgery [id number] Acute pain of right knee 06/25/2017 018 Overview: Added automatically from request for surgery [id number] Patellar dislocation, right, initial encounter 1 06/20/2016 04/21/2017 Status post total knee replacement using cement, right 04/16/2017 04/21/2017 Overview: Added automatically from request for surgery [id number] Acute pain of right knee 04/16/2017 017 Overview: Added automatically from request for surgery [id number] SUMMARY 04/03/2017 04/17/2017 Overview: Admit date: 04/03/2017 Reason for Admission/Observation: Unable to function Presentation: Patient is a 61-year-old female with PMH of AL, osteoarthritis, MRSA and herniated disc of the [...] of this encounter (statuses as of 12/30/2021) [facility] [place] History of Past illness Narrative* Problem Noted [...] Overview: Added automatically from request for surgery [id number] Acute pain of right knee 06/25/2017 018 Overview: Added automatically from request for surgery [id number] Patellar dislocation, right, initial encounter 1 06/20/2016 04/21/2017 Status post total knee replacement using cement, right 04/16/2017 04/21/2017 Overview: Added automatically from request for surgery [id number] Acute pain of right knee 04/16/2017 017 Overview: Added automatically from request for surgery [id number] SUMMARY 04/03/2017 04/17/2017 Overview: Admit date: 04/03/2017 Reason for Admission/Observation: Unable to function Presentation: Patient is a 61-year-old female with PMH of AL, osteoarthritis, MRSA and herniated disc of the [...] of this encounter (statuses as of 01/07/2022) [facility] [place] History of Past illness Narrative* Problem Noted [...] Overview: Added automatically from request for surgery [id number] Acute pain of right knee 06/25/2017 018 Overview: Added automatically from request for surgery [id number] Patellar dislocation, right, initial encounter 1 06/20/2016 04/21/2017 Status post total knee replacement using cement, right 04/16/2017 04/21/2017 Overview: Added automatically from request for surgery [id number] Acute pain of right knee 04/16/2017 017 Overview: Added automatically from request for surgery [id number] SUMMARY 04/03/2017 04/17/2017 Overview: Admit date: 04/03/2017 Reason for Admission/Observation: Unable to function Presentation: Patient is a 61-year-old female with PMH of AL, osteoarthritis, MRSA and herniated disc of the [...] of this encounter (statuses as of 02/05/2022) [facility] [place] History of Past illness Narrative* Problem Noted [...] Overview: Added automatically from request for surgery [id number] Acute pain of right knee 06/25/2017 018 Overview: Added automatically from request for surgery [id number] Patellar dislocation, right, initial encounter 1 06/20/2016 04/21/2017 Status post total knee replacement using cement, right 04/16/2017 04/21/2017 Overview: Added automatically from request for surgery [id number] Acute pain of right knee 04/16/2017 017 Overview: Added automatically from request for surgery [id number] SUMMARY 04/03/2017 04/17/2017 Overview: Admit date: 04/03/2017 Reason for Admission/Observation: Unable to function Presentation: Patient is a 61-year-old female with PMH of AL, osteoarthritis, MRSA and herniated disc of the [...] of this encounter (statuses as of 02/10/2022) [facility] [place] History of Past illness Narrative* Problem Noted [...] Overview: Added automatically from request for surgery [id number] Acute pain of right knee 06/25/2017 018 Overview: Added automatically from request for surgery [id number] Patellar dislocation, right, initial encounter 1 06/20/2016 04/21/2017 Status post total knee replacement using cement, right 04/16/2017 04/21/2017 Overview: Added automatically from request for surgery [id number] Acute pain of right knee 04/16/2017 017 Overview: Added automatically from request for surgery [id number] SUMMARY 04/03/2017 04/17/2017 Overview: Admit date: 04/03/2017 Reason for Admission/Observation: Unable to function Presentation: Patient is a 61-year-old female with PMH of AL, osteoarthritis, MRSA and herniated disc of the [...] of this encounter (statuses as of 02/12/2022) [facility] [place] History of Past illness Narrative* Problem Noted [...] Overview: Added automatically from request for surgery [id number] Acute pain of right knee 06/25/2017 018 Overview: Added automatically from request for surgery [id number] Patellar dislocation, right, initial encounter 1 06/20/2016 04/21/2017 Status post total knee replacement using cement, right 04/16/2017 04/21/2017 Overview: Added automatically from request for surgery [id number] Acute pain of right knee 04/16/2017 017 Overview: Added automatically from request for surgery [id number] SUMMARY 04/03/2017 04/17/2017 Overview: Admit date: 04/03/2017 Reason for Admission/Observation: Unable to function Presentation: Patient is a 61-year-old female with PMH of AL, osteoarthritis, MRSA and herniated disc of the [...] of this encounter (statuses as of 02/13/2022) [facility] [place] History of Past illness Narrative* Problem Noted [...] Overview: Added automatically from request for surgery [id number] Acute pain of right knee 06/25/2017 018 Overview: Added automatically from request for surgery [id number] Patellar dislocation, right, initial encounter 1 06/20/2016 04/21/2017 Status post total knee replacement using cement, right 04/16/2017 04/21/2017 Overview: Added automatically from request for surgery [id number] Acute pain of right knee 04/16/2017 017 Overview: Added automatically from request for surgery [id number] SUMMARY 04/03/2017 04/17/2017 Overview: Admit date: 04/03/2017 Reason for Admission/Observation: Unable to function Presentation: Patient is a 61-year-old female with PMH of AL, osteoarthritis, MRSA and herniated disc of the [...] of this encounter (statuses as of 03/06/2022) [facility] [place] History of Past illness Narrative* Problem Noted [...] Overview: Added automatically from request for surgery [id number] Acute pain of right knee 06/25/2017 018 Overview: Added automatically from request for surgery [id number] Patellar dislocation, right, initial encounter 1 06/20/2016 04/21/2017 Status post total knee replacement using cement, right 04/16/2017 04/21/2017 Overview: Added automatically from request for surgery [id number] Acute pain of right knee 04/16/2017 017 Overview: Added automatically from request for surgery [id number] SUMMARY 04/03/2017 04/17/2017 Overview: Admit date: 04/03/2017 Reason for Admission/Observation: Unable to function Presentation: Patient is a 61-year-old female with PMH of AL, osteoarthritis, MRSA and herniated disc of the [...] of this encounter (statuses as of 03/10/2022) [facility] [place] History of Past illness Narrative* Problem Noted [...] Overview: Added automatically from request for surgery [id number] Acute pain of right knee 06/25/2017 018 Overview: Added automatically from request for surgery [id number] Patellar dislocation, right, initial encounter 1 06/20/2016 04/21/2017 Status post total knee replacement using cement, right 04/16/2017 04/21/2017 Overview: Added automatically from request for surgery [id number] Acute pain of right knee 04/16/2017 017 Overview: Added automatically from request for surgery [id number] SUMMARY 04/03/2017 04/17/2017 Overview: Admit date: 04/03/2017 Reason for Admission/Observation: Unable to function Presentation: Patient is a 61-year-old female with PMH of AL, osteoarthritis, MRSA and herniated disc of the [...] of this encounter (statuses as of 03/12/2022) [facility] [place] History of Past illness Narrative* Problem Noted [...] Overview: Added automatically from request for surgery [id number] Acute pain of right knee 06/25/2017 018 Overview: Added automatically from request for surgery [id number] Patellar dislocation, right, initial encounter 1 06/20/2016 04/21/2017 Status post total knee replacement using cement, right 04/16/2017 04/21/2017 Overview: Added automatically from request for surgery [id number] Acute pain of right knee 04/16/2017 017 Overview: Added automatically from request for surgery [id number] SUMMARY 04/03/2017 04/17/2017 Overview: Admit date: 04/03/2017 Reason for Admission/Observation: Unable to function Presentation: Patient is a 61-year-old female with PMH of AL, osteoarthritis, MRSA and herniated disc of the [...] of this encounter (statuses as of 03/17/2022) [facility] [place] History of Past illness Narrative* Problem Noted [...] Overview: Added automatically from request for surgery [id number] Acute pain of right knee 06/25/2017 018 Overview: Added automatically from request for surgery [id number] Patellar dislocation, right, initial encounter 1 06/20/2016 04/21/2017 Status post total knee replacement using cement, right 04/16/2017 04/21/2017 Overview: Added automatically from request for surgery [id number] Acute pain of right knee 04/16/2017 017 Overview: Added automatically from request for surgery [id number] SUMMARY 04/03/2017 04/17/2017 Overview: Admit date: 04/03/2017 Reason for Admission/Observation: Unable to function Presentation: Patient is a 61-year-old female with PMH of AL, osteoarthritis, MRSA and herniated disc of the [...] of this encounter (statuses as of 03/18/2022) [facility] [place] History of Past illness Narrative* Problem Noted [...] Overview: Added automatically from request for surgery [id number] Acute pain of right knee 06/25/2017 018 Overview: Added automatically from request for surgery [id number] Patellar dislocation, right, initial encounter 1 06/20/2016 04/21/2017 Status post total knee replacement using cement, right 04/16/2017 04/21/2017 Overview: Added automatically from request for surgery [id number] Acute pain of right knee 04/16/2017 017 Overview: Added automatically from request for surgery [id number] SUMMARY 04/03/2017 04/17/2017 Overview: Admit date: 04/03/2017 Reason for Admission/Observation: Unable to function Presentation: Patient is a 61-year-old female with PMH of AL, osteoarthritis, MRSA and herniated disc of the [...] of this encounter (statuses as of 03/24/2022) [facility] [place] History of Past illness Narrative* Problem Noted [...] Overview: Added automatically from request for surgery [id number] Acute pain of right knee 06/25/2017 018 Overview: Added automatically from request for surgery [id number] Patellar dislocation, right, initial encounter 1 06/20/2016 04/21/2017 Status post total knee replacement using cement, right 04/16/2017 04/21/2017 Overview: Added automatically from request for surgery [id number] Acute pain of right knee 04/16/2017 017 Overview: Added automatically from request for surgery [id number] SUMMARY 04/03/2017 04/17/2017 Overview: Admit date: 04/03/2017 Reason for Admission/Observation: Unable to function Presentation: Patient is a 61-year-old female with PMH of AL, osteoarthritis, MRSA and herniated disc of the [...] of this encounter (statuses as of 05/13/2022) [facility] [place] History of Past illness Narrative* Problem Noted [...] Overview: Added automatically from request for surgery [id number] Acute pain of right knee 06/25/2017 018 Overview: Added automatically from request for surgery [id number] Patellar dislocation, right, initial encounter 1 06/20/2016 04/21/2017 Status post total knee replacement using cement, right 04/16/2017 04/21/2017 Overview: Added automatically from request for surgery [id number] Acute pain of right knee 04/16/2017 017 Overview: Added automatically from request for surgery [id number] SUMMARY 04/03/2017 04/17/2017 Overview: Admit date: 04/03/2017 Reason for Admission/Observation: Unable to function Presentation: Patient is a 61-year-old female with PMH of AL, osteoarthritis, MRSA and herniated disc of the [...] of this encounter (statuses as of 05/21/2022) [facility] [place] History of Past illness Narrative* Problem Noted [...] Overview: Added automatically from request for surgery [id number] Acute pain of right knee 06/25/2017 018 Overview: Added automatically from request for surgery [id number] Patellar dislocation, right, initial encounter 1 06/20/2016 04/21/2017 Status post total knee replacement using cement, right 04/16/2017 04/21/2017 Overview: Added automatically from request for surgery [id number] Acute pain of right knee 04/16/2017 017 Overview: Added automatically from request for surgery [id number] SUMMARY 04/03/2017 04/17/2017 Overview: Admit date: 04/03/2017 Reason for Admission/Observation: Unable to function Presentation: Patient is a 61-year-old female with PMH of AL, osteoarthritis, MRSA and herniated disc of the [...] of this encounter (statuses as of 05/23/2022) [facility] [place] History of Past illness Narrative* Problem Noted [...] Overview: Added automatically from request for surgery [id number] Acute pain of right knee 06/25/2017 018 Overview: Added automatically from request for surgery [id number] Patellar dislocation, right, initial encounter 1 06/20/2016 04/21/2017 Status post total knee replacement using cement, right 04/16/2017 04/21/2017 Overview: Added automatically from request for surgery [id number] Acute pain of right knee 04/16/2017 017 Overview: Added automatically from request for surgery [id number] SUMMARY 04/03/2017 04/17/2017 Overview: Admit date: 04/03/2017 Reason for Admission/Observation: Unable to function Presentation: Patient is a 61-year-old female with PMH of AL, osteoarthritis, MRSA and herniated disc of the [...] of this encounter (statuses as of 06/13/2022) [facility] [place] History of Past illness Narrative* Problem Noted [...] Overview: Added automatically from request for surgery [id number] Acute pain of right knee 06/25/2017 018 Overview: Added automatically from request for surgery [id number] Patellar dislocation, right, initial encounter 1 06/20/2016 04/21/2017 Status post total knee replacement using cement, right 04/16/2017 04/21/2017 Overview: Added automatically from request for surgery [id number] Acute pain of right knee 04/16/2017 017 Overview: Added automatically from request for surgery [id number] SUMMARY 04/03/2017 04/17/2017 Overview: Admit date: 04/03/2017 Reason for Admission/Observation: Unable to function Presentation: Patient is a 61-year-old female with PMH of AL, osteoarthritis, MRSA and herniated disc of the [...] of this encounter (statuses as of 06/18/2022) [facility] [place] History of Past illness Narrative* Problem Noted [...] Overview: Added automatically from request for surgery [id number] Acute pain of right knee 06/25/2017 018 Overview: Added automatically from request for surgery [id number] Patellar dislocation, right, initial encounter 1 06/20/2016 04/21/2017 Status post total knee replacement using cement, right 04/16/2017 04/21/2017 Overview: Added automatically from request for surgery [id number] Acute pain of right knee 04/16/2017 017 Overview: Added automatically from request for surgery [id number] SUMMARY 04/03/2017 04/17/2017 Overview: Admit date: 04/03/2017 Reason for Admission/Observation: Unable to function Presentation: Patient is a 61-year-old female with PMH of AL, osteoarthritis, MRSA and herniated disc of the [...] of minimal help. Hospital course: Consultants: Elieser Vlale Needed for Discharge: Disposition: documented as of this encounter (statuses as of 06/25/2022) [facility] [place] History of Past illness Narrative* Problem Noted [...] Overview: Added automatically from request for surgery [id number] Acute pain of right knee 06/25/2017 018 Overview: Added automatically from request for surgery [id number] Patellar dislocation, right, initial encounter 1 06/20/2016 04/21/2017 Status post total knee replacement using cement, right 04/16/2017 04/21/2017 Overview: Added automatically from request for surgery [id number] Acute pain of right knee 04/16/2017 017 Overview: Added automatically from request for surgery [id number] SUMMARY 04/03/2017 04/17/2017 Overview: Admit date: 04/03/2017 Reason for Admission/Observation: Unable to function Presentation: Patient is a 61-year-old female with PMH of AL, osteoarthritis, MRSA and herniated disc of the [...] of this encounter (statuses as of 07/05/2022) [facility] [place] History of Past illness Narrative* Problem Noted [...] Overview: Added automatically from request for surgery [id number] Acute pain of right knee 06/25/2017 018 Overview: Added automatically from request for surgery [id number] Patellar dislocation, right, initial encounter 1 06/20/2016 04/21/2017 Status post total knee replacement using cement, right 04/16/2017 04/21/2017 Overview: Added automatically from request for surgery [id number] Acute pain of right knee 04/16/2017 017 Overview: Added automatically from request for surgery [id number] SUMMARY 04/03/2017 04/17/2017 Overview: Admit date: 04/03/2017 Reason for Admission/Observation: Unable to function Presentation: Patient is a 61-year-old female with PMH of AL, osteoarthritis, MRSA and herniated disc of the [...] of this encounter (statuses as of 07/09/2022) [facility] [place] History of Past illness Narrative* Problem Noted [...] Overview: Added automatically from request for surgery [id number] Acute pain of right knee 06/25/2017 018 Overview: Added automatically from request for surgery [id number] Patellar dislocation, right, initial encounter 1 06/20/2016 04/21/2017 Status post total knee replacement using cement, right 04/16/2017 04/21/2017 Overview: Added automatically from request for surgery [id number] Acute pain of right knee 04/16/2017 017 Overview: Added automatically from request for surgery [id number] SUMMARY 04/03/2017 04/17/2017 Overview: Admit date: 04/03/2017 Reason for Admission/Observation: Unable to function Presentation: Patient is a 61-year-old female with PMH of AL, osteoarthritis, MRSA and herniated disc of the [...] of this encounter (statuses as of 07/16/2022) [facility] [place] History of Past illness Narrative* Problem Noted [...] Overview: Added automatically from request for surgery [id number] Acute pain of right knee 06/25/2017 018 Overview: Added automatically from request for surgery [id number] Patellar dislocation, right, initial encounter 1 06/20/2016 04/21/2017 Status post total knee replacement using cement, right 04/16/2017 04/21/2017 Overview: Added automatically from request for surgery [id number] Acute pain of right knee 04/16/2017 017 Overview: Added automatically from request for surgery [id number] SUMMARY 04/03/2017 04/17/2017 Overview: Admit date: 04/03/2017 Reason for Admission/Observation: Unable to function Presentation: Patient is a 61-year-old female with PMH of AL, osteoarthritis, MRSA and herniated disc of the [...] of this encounter (statuses as of 07/22/2022) [facility] [place] History of Past illness Narrative* Problem Noted [...] Overview: Added automatically from request for surgery [id number] Acute pain of right knee 06/25/2017 018 Overview: Added automatically from request for surgery [id number] Patellar dislocation, right, initial encounter 1 06/20/2016 04/21/2017 Status post total knee replacement using cement, right 04/16/2017 04/21/2017 Overview: Added automatically from request for surgery [id number] Acute pain of right knee 04/16/2017 017 Overview: Added automatically from request for surgery [id number] SUMMARY 04/03/2017 04/17/2017 Overview: Admit date: 04/03/2017 Reason for Admission/Observation: Unable to function Presentation: Patient is a 61-year-old female with PMH of AL, osteoarthritis, MRSA and herniated disc of the [...] of this encounter (statuses as of 07/28/2022) [facility] [place] History of Past illness Narrative* Problem Noted [...] Overview: Added automatically from request for surgery [id number] Acute pain of right knee 06/25/2017 018 Overview: Added automatically from request for surgery [id number] Patellar dislocation, right, initial encounter 1 06/20/2016 04/21/2017 Status post total knee replacement using cement, right 04/16/2017 04/21/2017 Overview: Added automatically from request for surgery [id number] Acute pain of right knee 04/16/2017 017 Overview: Added automatically from request for surgery [id number] SUMMARY 04/03/2017 04/17/2017 Overview: Admit date: 04/03/2017 Reason for Admission/Observation: Unable to function Presentation: Patient is a 61-year-old female with PMH of AL, osteoarthritis, MRSA and herniated disc of the [...] of this encounter (statuses as of 07/29/2022) [facility] [place] History of Past illness Narrative* Problem Noted [...] Overview: Added automatically from request for surgery [id number] Acute pain of right knee 06/25/2017 018 Overview: Added automatically from request for surgery [id number] Patellar dislocation, right, initial encounter 1 06/20/2016 04/21/2017 Status post total knee replacement using cement, right 04/16/2017 04/21/2017 Overview: Added automatically from request for surgery [id number] Acute pain of right knee 04/16/2017 017 Overview: Added automatically from request for surgery [id number] SUMMARY 04/03/2017 04/17/2017 Overview: Admit date: 04/03/2017 Reason for Admission/Observation: Unable to function Presentation: Patient is a 61-year-old female with PMH of AL, osteoarthritis, MRSA and herniated disc of the [...] of this encounter (statuses as of 07/30/2022) [facility] [place] History of Past illness Narrative* Problem Noted [...] Overview: Added automatically from request for surgery [id number] Acute pain of right knee 06/25/2017 018 Overview: Added automatically from request for surgery [id number] Patellar dislocation, right, initial encounter 1 06/20/2016 04/21/2017 Status post total knee replacement using cement, right 04/16/2017 04/21/2017 Overview: Added automatically from request for surgery [id number] Acute pain of right knee 04/16/2017 017 Overview: Added automatically from request for surgery [id number] SUMMARY 04/03/2017 04/17/2017 Overview: Admit date: 04/03/2017 Reason for Admission/Observation: Unable to function Presentation: Patient is a 61-year-old female with PMH of AL, osteoarthritis, MRSA and herniated disc of the [...] of this encounter (statuses as of 08/12/2022) [facility] History of Past illness Narrative* Problem Noted [...] Overview: Added automatically from request for surgery [id number] Acute pain of right knee 06/25/2017 018 Overview: Added automatically from request for surgery [id number] Patellar dislocation, right, initial encounter 1 06/20/2016 04/21/2017 Status post total knee replacement using cement, right 04/16/2017 04/21/2017 Overview: Added automatically from request for surgery [id number] Acute pain of right knee 04/16/2017 017 Overview: Added automatically from request for surgery [id number] SUMMARY 04/03/2017 04/17/2017 Overview: Admit date: 04/03/2017 Reason for Admission/Observation: Unable to function Presentation: Patient is a 61-year-old female with PMH of AL, osteoarthritis, MRSA and herniated disc of the [...] of this encounter (statuses as of 08/28/2022) [facility] History of Past illness Narrative* Problem Noted [...] Overview: Added automatically from request for surgery [id number] Acute pain of right knee 06/25/2017 018 Overview: Added automatically from request for surgery [id number] Patellar dislocation, right, initial encounter 1 06/20/2016 04/21/2017 Status post total knee replacement using cement, right 04/16/2017 04/21/2017 Overview: Added automatically from request for surgery [id number] Acute pain of right knee 04/16/2017 017 Overview: Added automatically from request for surgery [id number] SUMMARY 04/03/2017 04/17/2017 Overview: Admit date: 04/03/2017 Reason for Admission/Observation: Unable to function Presentation: Patient is a 61-year-old female with PMH of AL, osteoarthritis, MRSA and herniated disc of the [...] of this encounter (statuses as of 08/30/2022) [facility] History of Past illness Narrative* Problem Noted [...] Overview: Added automatically from request for surgery [id number] Acute pain of right knee 06/25/2017 018 Overview: Added automatically from request for surgery [id number] Patellar dislocation, right, initial encounter 1 06/20/2016 04/21/2017 Status post total knee replacement using cement, right 04/16/2017 04/21/2017 Overview: Added automatically from request for surgery [id number] Acute pain of right knee 04/16/2017 017 Overview: Added automatically from request for surgery [id number] SUMMARY 04/03/2017 04/17/2017 Overview: Admit date: 04/03/2017 Reason for Admission/Observation: Unable to function Presentation: Patient is a 61-year-old female with PMH of AL, osteoarthritis, MRSA and herniated disc of the [...] of this encounter (statuses as of 09/08/2022) [facility] History of Past illness Narrative* Problem Noted [...] Overview: Added automatically from request for surgery [id number] Acute pain of right knee 06/25/2017 018 Overview: Added automatically from request for surgery [id number] Patellar dislocation, right, initial encounter 1 06/20/2016 04/21/2017 Status post total knee replacement using cement, right 04/16/2017 04/21/2017 Overview: Added automatically from request for surgery [id number] Acute pain of right knee 04/16/2017 017 Overview: Added automatically from request for surgery [id number] SUMMARY 04/03/2017 04/17/2017 Overview: Admit date: 04/03/2017 Reason for Admission/Observation: Unable to function Presentation: Patient is a 61-year-old female with PMH of AL, osteoarthritis, MRSA and herniated disc of the [...] of this encounter (statuses as of 09/20/2022) [facility] History of Past illness Narrative* Problem Noted [...] Overview: Added automatically from request for surgery [id number] Acute pain of right knee 06/25/2017 018 Overview: Added automatically from request for surgery [id number] Patellar dislocation, right, initial encounter 1 06/20/2016 04/21/2017 Status post total knee replacement using cement, right 04/16/2017 04/21/2017 Overview: Added automatically from request for surgery [id number] Acute pain of right knee 04/16/2017 017 Overview: Added automatically from request for surgery [id number] SUMMARY 04/03/2017 04/17/2017 Overview: Admit date: 04/03/2017 Reason for Admission/Observation: Unable to function Presentation: Patient is a 61-year-old female with PMH of AL, osteoarthritis, MRSA and herniated disc of the [...] of this encounter (statuses as of 09/24/2022) [facility] History of Past illness Narrative* Problem Noted [...] Overview: Added automatically from request for surgery [id number] Acute pain of right knee 06/25/2017 018 Overview: Added automatically from request for surgery [id number] Patellar dislocation, right, initial encounter 1 06/20/2016 04/21/2017 Status post total knee replacement using cement, right 04/16/2017 04/21/2017 Overview: Added automatically from request for surgery [id number] Acute pain of right knee 04/16/2017 017 Overview: Added automatically from request for surgery [id number] SUMMARY 04/03/2017 04/17/2017 Overview: Admit date: 04/03/2017 Reason for Admission/Observation: Unable to function Presentation: Patient is a 61-year-old female with PMH of AL, osteoarthritis, MRSA and herniated disc of the [...] of this encounter (statuses as of 10/01/2022) [facility] History of Past illness Narrative* Problem Noted [...] Overview: Added automatically from request for surgery [id number] Acute pain of right knee 06/25/2017 018 Overview: Added automatically from request for surgery [id number] Patellar dislocation, right, initial encounter 1 06/20/2016 04/21/2017 Status post total knee replacement using cement, right 04/16/2017 04/21/2017 Overview: Added automatically from request for surgery [id number] Acute pain of right knee 04/16/2017 017 Overview: Added automatically from request for surgery [id number] SUMMARY 04/03/2017 04/17/2017 Overview: Admit date: 04/03/2017 Reason for Admission/Observation: Unable to function Presentation: Patient is a 61-year-old female with PMH of AL, osteoarthritis, MRSA and herniated disc of the [...] of this encounter (statuses as of 10/07/2022) [facility] History of Past illness Narrative* Problem Noted [...] Overview: Added automatically from request for surgery [id number] Acute pain of right knee 06/25/2017 018 Overview: Added automatically from request for surgery [id number] Patellar dislocation, right, initial encounter 1 06/20/2016 04/21/2017 Status post total knee replacement using cement, right 04/16/2017 04/21/2017 Overview: Added automatically from request for surgery [id number] Acute pain of right knee 04/16/2017 017 Overview: Added automatically from request for surgery [id number] SUMMARY 04/03/2017 04/17/2017 Overview: Admit date: 04/03/2017 Reason for Admission/Observation: Unable to function Presentation: Patient is a 61-year-old female with PMH of AL, osteoarthritis, MRSA and herniated disc of the [...] of this encounter (statuses as of 10/16/2022) [facility] History of Past illness Narrative* Problem Noted [...] Overview: Added automatically from request for surgery [id number] Acute pain of right knee 06/25/2017 018 Overview: Added automatically from request for surgery [id number] Patellar dislocation, right, initial encounter 1 06/20/2016 04/21/2017 Status post total knee replacement using cement, right 04/16/2017 04/21/2017 Overview: Added automatically from request for surgery [id number] Acute pain of right knee 04/16/2017 017 Overview: Added automatically from request for surgery [id number] SUMMARY 04/03/2017 04/17/2017 Overview: Admit date: 04/03/2017 Reason for Admission/Observation: Unable to function Presentation: Patient is a 61-year-old female with PMH of AL, osteoarthritis, MRSA and herniated disc of the [...] of this encounter (statuses as of 11/06/2022) [facility] History of Past illness Narrative* Problem Noted [...] Overview: Added automatically from request for surgery [id number] Acute pain of right knee 06/25/2017 018 Overview: Added automatically from request for surgery [id number] Patellar dislocation, right, initial encounter 1 06/20/2016 04/21/2017 Status post total knee replacement using cement, right 04/16/2017 04/21/2017 Overview: Added automatically from request for surgery [id number] Acute pain of right knee 04/16/2017 017 Overview: Added automatically from request for surgery [id number] SUMMARY 04/03/2017 04/17/2017 Overview: Admit date: 04/03/2017 Reason for Admission/Observation: Unable to function Presentation: Patient is a 61-year-old female with PMH of AL, osteoarthritis, MRSA and herniated disc of the [...] of this encounter (statuses as of 11/17/2022) [facility] History of Past illness Narrative* Problem Noted [...] Overview: Added automatically from request for surgery [id number] Acute pain of right knee 06/25/2017 018 Overview: Added automatically from request for surgery [id number] Patellar dislocation, right, initial encounter 1 06/20/2016 04/21/2017 Status post total knee replacement using cement, right 04/16/2017 04/21/2017 Overview: Added automatically from request for surgery [id number] Acute pain of right knee 04/16/2017 017 Overview: Added automatically from request for surgery [id number] SUMMARY 04/03/2017 04/17/2017 Overview: Admit date: 04/03/2017 Reason for Admission/Observation: Unable to function Presentation: Patient is a 61-year-old female with PMH of AL, osteoarthritis, MRSA and herniated disc of the [...] of this encounter (statuses as of 11/21/2022) [facility] History of Past illness Narrative* Problem Noted [...] Overview: Added automatically from request for surgery [id number] Acute pain of right knee 06/25/2017 018 Overview: Added automatically from request for surgery [id number] Patellar dislocation, right, initial encounter 1 06/20/2016 04/21/2017 Status post total knee replacement using cement, right 04/16/2017 04/21/2017 Overview: Added automatically from request for surgery [id number] Acute pain of right knee 04/16/2017 017 Overview: Added automatically from request for surgery [id number] SUMMARY 04/03/2017 04/17/2017 Overview: Admit date: 04/03/2017 Reason for Admission/Observation: Unable to function Presentation: Patient is a 61-year-old female with PMH of AL, osteoarthritis, MRSA and herniated disc of the [...] of this encounter (statuses as of 12/04/2022) [facility] History of Past illness Narrative* Problem Noted [...] Overview: Added automatically from request for surgery [id number] Acute pain of right knee 06/25/201711/2017 Overview: Added automatically from request for surgery [id number] Patellar dislocation, right, initial encounter 04/20/2017 04/21/2017 Status post total knee repla cement using cement, right 04/16/2017 04/21/2017 Overview: Added automatically from request for surgery [id number] Acute pain of right knee 04/16/2017 Overview: Added automatically from request for surgery [id number] SUMMARY 04/03/2017 04/17/2017 Overview: Admit date: 04/03/2017 Reason for Admission/Observation: Unable to function Presentation: Patient is a 61-year-old female with PMH of AL, osteoarthritis, MRSA and herniated disc of the [...] of this encounter (statuses as of 12/16/2022) [facility] History of Past illness Narrative* Problem Noted [...] Overview: Added automatically from request for surgery [id number] Acute pain of right knee 06/25/201711/2017 Overview: Added automatically from request for surgery [id number] Patellar dislocation, right, initial encounter 04/20/2017 04/21/2017 Status post total knee repla cement using cement, right 04/16/2017 04/21/2017 Overview: Added automatically from request for surgery [id number] Acute pain of right knee 04/16/2017 Overview: Added automatically from request for surgery [id number] SUMMARY 04/03/2017 04/17/2017 Overview: Admit date: 04/03/2017 Reason for Admission/Observation: Unable to function Presentation: Patient is a 61-year-old female with PMH of AL, osteoarthritis, MRSA and herniated disc of the [...] of this encounter (statuses as of 12/30/2022) [facility] History of Past illness Narrative* Problem Noted [...] Overview: Added automatically from request for surgery [id number] Acute pain of right knee 06/25/201711/2017 Overview: Added automatically from request for surgery [id number] Patellar dislocation, right, initial encounter 04/20/2017 04/21/2017 Status post total knee repla cement using cement, right 04/16/2017 04/21/2017 Overview: Added automatically from request for surgery [id number] Acute pain of right knee 04/16/2017 Overview: Added automatically from request for surgery [id number] SUMMARY 04/03/2017 04/17/2017 Overview: Admit date: 04/03/2017 Reason for Admission/Observation: Unable to function Presentation: Patient is a 61-year-old female with PMH of AL, osteoarthritis, MRSA and herniated disc of the [...] of this encounter (statuses as of 01/01/2023) [facility] History of Past illness Narrative* Problem Noted [...] Overview: Added automatically from request for surgery [id number] Acute pain of right knee 06/25/201711/2017 Overview: Added automatically from request for surgery [id number] Patellar dislocation, right, initial encounter 04/20/2017 04/21/2017 Status post total knee repla cement using cement, right 04/16/2017 04/21/2017 Overview: Added automatically from request for surgery [id number] Acute pain of right knee 04/16/2017 Overview: Added automatically from request for surgery [id number] SUMMARY 04/03/2017 04/17/2017 Overview: Admit date: 04/03/2017 Reason for Admission/Observation: Unable to function Presentation: Patient is a 61-year-old female with PMH of AL, osteoarthritis, MRSA and herniated disc of the [...] of this encounter (statuses as of 01/01/2023) [facility] History of Past illness Narrative* Problem Noted [...] Overview: Added automatically from request for surgery [id number] Acute pain of right knee 06/25/201711/2017 Overview: Added automatically from request for surgery [id number] Patellar dislocation, right, initial encounter 04/20/2017 04/21/2017 Status post total knee repla cement using cement, right 04/16/2017 04/21/2017 Overview: Added automatically from request for surgery [id number] Acute pain of right knee 04/16/2017 Overview: Added automatically from request for surgery [id number] SUMMARY 04/03/2017 04/17/2017 Overview: Admit date: 04/03/2017 Reason for Admission/Observation: Unable to function Presentation: Patient is a 61-year-old female with PMH of AL, osteoarthritis, MRSA and herniated disc of the [...] of this encounter (statuses as of 01/13/2023) [facility] History of Past illness Narrative* Problem Noted [...] Overview: Added automatically from request for surgery [id number] Acute pain of right knee 06/25/201711/2017 Overview: Added automatically from request for surgery [id number] Patellar dislocation, right, initial encounter 04/20/2017 04/21/2017 Status post total knee repla cement using cement, right 04/16/2017 04/21/2017 Overview: Added automatically from request for surgery [id number] Acute pain of right knee 04/16/2017 Overview: Added automatically from request for surgery [id number] SUMMARY 04/03/2017 04/17/2017 Overview: Admit date: 04/03/2017 Reason for Admission/Observation: Unable to function Presentation: Patient is a 61-year-old female with PMH of AL, osteoarthritis, MRSA and herniated disc of the [...] of this encounter (statuses as of 01/14/2023) [facility] History of Past illness Narrative* Problem Noted [...] Overview: Added automatically from request for surgery [id number] Acute pain of right knee 06/25/201711/2017 Overview: Added automatically from request for surgery [id number] Patellar dislocation, right, initial encounter 04/20/2017 04/21/2017 Status post total knee repla cement using cement, right 04/16/2017 04/21/2017 Overview: Added automatically from request for surgery [id number] Acute pain of right knee 04/16/2017 Overview: Added automatically from request for surgery [id number] SUMMARY 04/03/2017 04/17/2017 Overview: Admit date: 04/03/2017 Reason for Admission/Observation: Unable to function Presentation: Patient is a 61-year-old female with PMH of AL, osteoarthritis, MRSA and herniated disc of the [...] of this encounter (statuses as of 01/27/2023) [facility] History of Past illness Narrative* Problem Noted [...] Overview: Added automatically from request for surgery [id number] Acute pain of right knee 06/25/201711/2017 Overview: Added automatically from request for surgery [id number] Patellar dislocation, right, initial encounter 04/20/2017 04/21/2017 Status post total knee repla cement using cement, right 04/16/2017 04/21/2017 Overview: Added automatically from request for surgery [id number] Acute pain of right knee 04/16/2017 Overview: Added automatically from request for surgery [id number] SUMMARY 04/03/2017 04/17/2017 Overview: Admit date: 04/03/2017 Reason for Admission/Observation: Unable to function Presentation: Patient is a 61-year-old female with PMH of AL, osteoarthritis, MRSA and herniated disc of the [...] of this encounter (statuses as of 01/31/2023) [facility] History of Past illness Narrative* Problem Noted [...] Overview: Added automatically from request for surgery [id number] Acute pain of right knee 06/25/201711/2017 Overview: Added automatically from request for surgery [id number] Patellar dislocation, right, initial encounter 04/20/2017 04/21/2017 Status post total knee repla cement using cement, right 04/16/2017 04/21/2017 Overview: Added automatically from request for surgery [id number] Acute pain of right knee 04/16/2017 Overview: Added automatically from request for surgery [id number] SUMMARY 04/03/2017 04/17/2017 Overview: Admit date: 04/03/2017 Reason for Admission/Observation: Unable to function Presentation: Patient is a 61-year-old female with PMH of AL, osteoarthritis, MRSA and herniated disc of the [...] of this encounter (statuses as of 01/31/2023) [facility] History of Past illness Narrative* Problem Noted [...] Overview: Added automatically from request for surgery [id number] Acute pain of right knee 06/25/201711/2017 Overview: Added automatically from request for surgery [id number] Patellar dislocation, right, initial encounter 04/20/2017 04/21/2017 Status post total knee repla cement using cement, right 04/16/2017 04/21/2017 Overview: Added automatically from request for surgery [id number] Acute pain of right knee 04/16/2017 Overview: Added automatically from request for surgery [id number] SUMMARY 04/03/2017 04/17/2017 Overview: Admit date: 04/03/2017 Reason for Admission/Observation: Unable to function Presentation: Patient is a 61-year-old female with PMH of AL, osteoarthritis, MRSA and herniated disc of the [...] of this encounter (statuses as of 02/13/2023) [facility] History of Past illness Narrative* Problem Noted [...] Overview: Added automatically from request for surgery [id number] Acute pain of right knee 06/25/201711/2017 Overview: Added automatically from request for surgery [id number] Patellar dislocation, right, initial encounter 04/20/2017 04/21/2017 Status post total knee repla cement using cement, right 04/16/2017 04/21/2017 Overview: Added automatically from request for surgery [id number] Acute pain of right knee 04/16/2017 Overview: Added automatically from request for surgery [id number] SUMMARY 04/03/2017 04/17/2017 Overview: Admit date: 04/03/2017 Reason for Admission/Observation: Unable to function Presentation: Patient is a 61-year-old female with PMH of AL, osteoarthritis, MRSA and herniated disc of the [...] of this encounter (statuses as of 02/14/2023) [facility] History of Past illness Narrative* Problem Noted [...] Overview: Added automatically from request for surgery [id number] Acute pain of right knee 06/25/201711/2017 Overview: Added automatically from request for surgery [id number] Patellar dislocation, right, initial encounter 04/20/2017 04/21/2017 Status post total knee repla cement using cement, right 04/16/2017 04/21/2017 Overview: Added automatically from request for surgery [id number] Acute pain of right knee 04/16/2017 Overview: Added automatically from request for surgery [id number] SUMMARY 04/03/2017 04/17/2017 Overview: Admit date: 04/03/2017 Reason for Admission/Observation: Unable to function Presentation: Patient is a 61-year-old female with PMH of AL, osteoarthritis, MRSA and herniated disc of the [...] of this encounter (statuses as of 03/30/2023) [facility] History of Past illness Narrative* Problem Noted [...] Overview: Added automatically from request for surgery [id number] Acute pain of right knee 06/25/201711/2017 Overview: Added automatically from request for surgery [id number] Patellar dislocation, right, initial encounter 04/20/2017 04/21/2017 Status post total knee repla cement using cement, right 04/16/2017 04/21/2017 Overview: Added automatically from request for surgery [id number] Acute pain of right knee 04/16/2017 Overview: Added automatically from request for surgery [id number] SUMMARY 04/03/2017 04/17/2017 Overview: Admit date: 04/03/2017 Reason for Admission/Observation: Unable to function Presentation: Patient is a 61-year-old female with PMH of AL, osteoarthritis, MRSA and herniated disc of the [...] of this encounter (statuses as of 04/08/2023) [facility] History of Past illness Narrative* Problem Noted [...] Overview: Added automatically from request for surgery [id number] Acute pain of right knee 06/25/201711/2017 Overview: Added automatically from request for surgery [id number] Patellar dislocation, right, initial encounter 04/20/2017 04/21/2017 Status post total knee repla cement using cement, right 04/16/2017 04/21/2017 Overview: Added automatically from request for surgery [id number] Acute pain of right knee 04/16/2017 Overview: Added automatically from request for surgery [id number] SUMMARY 04/03/2017 04/17/2017 Overview: Admit date: 04/03/2017 Reason for Admission/Observation: Unable to function Presentation: Patient is a 61-year-old female with PMH of AL, osteoarthritis, MRSA and herniated disc of the [...] of this encounter (statuses as of 04/14/2023) [facility] History of Past illness Narrative* Problem Noted [...] Overview: Added automatically from request for surgery [id number] Acute pain of right knee 06/25/201711/2017 Overview: Added automatically from request for surgery [id number] Patellar dislocation, right, initial encounter 04/20/2017 04/21/2017 Status post total knee repla cement using cement, right 04/16/2017 04/21/2017 Overview: Added automatically from request for surgery [id number] Acute pain of right knee 04/16/2017 Overview: Added automatically from request for surgery [id number] SUMMARY 04/03/2017 04/17/2017 Overview: Admit date: 04/03/2017 Reason for Admission/Observation: Unable to function Presentation: Patient is a 61-year-old female with PMH of AL, osteoarthritis, MRSA and herniated disc of the [...] of this encounter (statuses as of 05/04/2023) [facility] History of Past illness Narrative* Problem Noted [...] Overview: Added automatically from request for surgery [id number] Acute pain of right knee 06/25/201711/2017 Overview: Added automatically from request for surgery [id number] Patellar dislocation, right, initial encounter 04/20/2017 04/21/2017 Status post total knee repla cement using cement, right 04/16/2017 04/21/2017 Overview: Added automatically from request for surgery [id number] Acute pain of right knee 04/16/2017 Overview: Added automatically from request for surgery [id number] SUMMARY 04/03/2017 04/17/2017 Overview: Admit date: 04/03/2017 Reason for Admission/Observation: Unable to function Presentation: Patient is a 61-year-old female with PMH of AL, osteoarthritis, MRSA and herniated disc of the [...] of this encounter (statuses as of 05/11/2023) [facility]2018 History of Past illness Narrative* Problem Noted [...] Overview: Added automatically from request for surgery [id number] Acute pain of right knee 06/25/201711/2017 Overview: Added automatically from request for surgery [id number] Patellar dislocation, right, initial encounter 04/20/2017 04/21/2017 Status post total knee repla cement using cement, right 04/16/2017 04/21/2017 Overview: Added automatically from request for surgery [id number] Acute pain of right knee 04/16/2017 Overview: Added automatically from request for surgery [id number] SUMMARY 04/03/2017 04/17/2017 Overview: Admit date: 04/03/2017 Reason for Admission/Observation: Unable to function Presentation: Patient is a 61-year-old female with PMH of AL, osteoarthritis, MRSA and herniated disc of the [...] of this encounter (statuses as of 07/30/2023) [facility]2018 History of Past illness Narrative* Problem Noted [...] Overview: Added automatically from request for surgery [id number] Acute pain of right knee 06/25/201711/2017 Overview: Added automatically from request for surgery [id number] Patellar dislocation, right, initial encounter 04/20/2017 04/21/2017 Status post total knee repla cement using cement, right 04/16/2017 04/21/2017 Overview: Added automatically from request for surgery [id number] Acute pain of right knee 04/16/2017 Overview: Added automatically from request for surgery [id number] SUMMARY 04/03/2017 04/17/2017 Overview: Admit date: 04/03/2017 Reason for Admission/Observation: Unable to function Presentation: Patient is a 61-year-old female with PMH of AL, osteoarthritis, MRSA and herniated disc of the [...] of this encounter (statuses as of 07/31/2023) [facility] History of Past illness Narrative* Problem Noted [...] Overview: Added automatically from request for surgery [id number] Acute pain of right knee 06/25/201711/2017 Overview: Added automatically from request for surgery [id number] Patellar dislocation, right, initial encounter 04/20/2017 04/21/2017 Status post total knee repla cement using cement, right 04/16/2017 04/21/2017 Overview: Added automatically from request for surgery [id number] Acute pain of right knee 04/16/2017 Overview: Added automatically from request for surgery [id number] SUMMARY 04/03/2017 04/17/2017 Overview: Admit date: 04/03/2017 Reason for Admission/Observation: Unable to function Presentation: Patient is a 61-year-old female with PMH of AL, osteoarthritis, MRSA and herniated disc of the [...] of this encounter (statuses as of 08/11/2023) [facility] Cellulitis of right lower extremity- Primary Cellulitis and abscess of leg, except foot [facility]: [facility]* Diagnosis Chronic pain of right knee- Primary documented in this encounter [facility] Work Phone: Evaluation note* Diagnosis Chronic anxiety Anxiety state, unspecified [facility] Chronic pain of right knee [facility] Work Phone: [facility]* Diagnosis Chronic [...] [facility] Diagnosis Chronic anxiety- Primary Anxiety state, [...] [facility]* Diagnosis Breast pain, left- Primary Mastodynia [facility]* Diagnosis Infection associated with internal right knee prosthesis, subsequent encounter [facility]* Diagnosis Status post total left knee replacement- Primary documented in this encounter [facility]* Diagnosis Pain due to internal orthopedic prosthetic devices, implants and grafts, initial encounter ([facility]) documented in this encounter [facility] note* Diagnosis Chronic pain of right knee Chronic anxiety Anxiety state, unspecified documented in this encounter [facility] note* Diagnosis Chronic anxiety Anxiety state, unspecified Chronic pain of right knee documented in this encounter [facility] note* Diagnosis Chronic pain of right knee Infection associated with internal right knee prosthesis, subsequent encounter Chronic anxiety Anxiety state, unspecified documented in this encounter [facility] note* Diagnosis Status post total left knee replacement- Primary S/P revision of total knee, right documented in this encounter [facility] note* Diagnosis Infection associated with internal right knee prosthesis, subsequent encounter documented in this encounter [facility] note* Diagnosis Infection associated with internal right knee prosthesis, subsequent encounter Chronic pain of right knee Chronic anxiety Anxiety state, unspecified documented in this encounter [facility] note* Diagnosis Chronic pain of right knee Chronic anxiety Anxiety state, unspecified Infection associated with internal right knee prosthesis, subsequent encounter documented in this encounter [facility] note* Diagnosis MS (multiple sclerosis) (HCC)- Primary Multiple sclerosis Daily headache Headache documented in this encounter [facility] note* Diagnosis Chronic anxiety Anxiety state, unspecified documented in this encounter [facility] note* Diagnosis Infection associated with internal right knee prosthesis, subsequent encounter documented in this encounter [facility] note* Diagnosis Encounter for screening mammogram for breast cancer documented in this encounter [facility] note* Diagnosis Left leg swelling- Primary documented in this encounter [facility] note* Diagnosis MS (multiple sclerosis) (HCC) Multiple sclerosis Daily headache Headache Infection associated with internal right knee prosthesis, subsequent encounter Chronic anxiety Anxiety state, unspecified documented in this encounter [facility] note* Diagnosis Infection associated with internal right knee prosthesis, subsequent encounter documented in this encounter [facility] note* Diagnosis MS (multiple sclerosis) (HCC) Multiple sclerosis Daily headache Headache Chronic anxiety Anxiety state, unspecified documented in this encounter [facility] note* Diagnosis Pyogenic arthritis of right knee joint, due to unspecified organism ([facility]) documented in this encounter [facility] note* Diagnosis MS (multiple sclerosis) (HCC) [...] prosthesis, subsequent encounter documented in this encounter [facility] note* Diagnosis Acute respiratory failure with [...] Daily headache Headache documented in this encounter [facility] note* Diagnosis Acute respiratory failure with [...] left knee replacement [facility] [place] Diagnosis Acute respiratory failure with hypoxia [...] Anxiety state, unspecified documented in this encounter [facility] note* Diagnosis Acute respiratory failure with [...] Anxiety state, unspecified [facility] [place] Diagnosis Acute respiratory failure with hypoxia [...] Daily headache Headache [facility] [place] Diagnosis Acute respiratory failure with hypoxia [...] Daily headache Headache documented in this encounter [facility] note* Diagnosis Acute respiratory failure with [...] Anxiety state, unspecified documented in this encounter [facility] note* Diagnosis Acute respiratory failure with [...] prosthesis, subsequent encounter documented in this encounter [facility] note* Diagnosis Acute respiratory failure with [...] Daily headache Headache documented in this encounter [facility] note* Diagnosis Acute respiratory failure with [...] Daily headache Headache documented in this encounter [facility] note* Diagnosis Acute respiratory failure with [...] prosthesis, subsequent encounter [facility] [place] Diagnosis Acute respiratory failure with hypoxia [...] Anxiety state, unspecified [facility] [place] [facility]* Diagnosis Acute respiratory failure with hypoxia [...] Daily headache Headache [facility] [place]* Diagnosis Acute respiratory failure with hypoxia [...] Headache documented in this encounter [facility] Discharge instructions* Instructions* Nica Nolasco MD - 01/06/2021 Orthopaedic Surgery Discharge Instructions: You may bear weight as tolerated Apply Ice to affected area. This will help with pain. Elevate your right lower extremity/extremities. This will help with swelling. Take your medications and antibiotics as prescribed. Call Dr. Parrish's office to schedule a follow-up appointment as soon as possible documented in this [facility] Work Phone: Hospital Discharge instructions* Attachments The following attachments cannot be sent through Care Everywhere. * Dependent Edema Discharge Instructions (Martiniquais) documented in this [facility] for referral (narrative)* Diagnostic Procedure Only (Routine) - Pending Review Specialty Diagnoses / Procedures Referred By Contac t Referred To Contact BR IMAGING Diagnoses Breast pain, left Procedures US BREAST LTD LT US BREAST UNI REAL TIME WITH IMAGE LIMITED Moreno Oates MD [address] [place] [address] Br Imaging [address] [id number] Referral ID Status Reason Start Date Expiration Date Visits Requested Visits Authorized [id number] Pending Review Auto-Generat ed Referral 2 04/16/2023 1 1 * Diagnostic Procedure Only (Routine) - Pending Review Specialty Diagnoses / Procedures Referred By Contac t Referred To Contact BR IMAGING Diagnoses Breast pain, left Procedures AMANDA DIAGNOSTIC BILAT DIAGNOSTIC MAMMOGRAPHY COMPUTER-AIDED DETCJ BI Moreno Oates MD [address] [place] [address] Br Imaging [address] [place] [address] Referral ID Status Reason Start Date Expiration Date Visits Requested Visits Authorized [id number] Pending Review Auto-Generat ed Referral 2 04/16/2023 1 1 [facility] for referral (narrative)* Diagnostic Procedure Only (Routine) - Closed Specialty Diagnoses / Procedures Referred By Contac t Referred To Contact XR IMAGING Diagnoses Status post total left knee replacement Procedures XR KNEE POST OP 3V AP/LAT/MERCHANT LEFT RADIOLOGIC EXAMINATION KNEE 3 VIEWS Debbie Batista PA-C [address] [place] [address] Xr Imaging Referral ID Status Reason Start Date Expiration Date V isits Requested Visits Authorized [id number] Closed Auto-Generated Referral Financial Clearance Not Required 05/21/2022 06/20/2023 1 1 [facility] for referral (narrative)* Diagnostic Procedure Only (Routine) - Pending Review Specialty Diagnoses / Procedures Referred By Contac t Referred To Contact BR IMAGING Diagnoses Encounter for screening mammogram for breast cancer Procedures AMANDA SCREENING SCREENING MAMMOGRAPHY BI 2-VIEW BREAST INC CAD Gracie, Moreno Gong MD [address] [place] [address] [place] [address] Br Imaging [address] [place] [address] Referral ID Status Reason Start Date Expiration Date Visits Requested Visits Authorized [id number] Pending Review Auto-Generat ed Referral 11/12/2022 12/12/2023 1 1 [facility] for referral (narrative)* Diagnostic Procedure Only (Routine) - Closed Specialty Diagnoses / Procedures Referred By Contac t Referred To Contact XR IMAGING Diagnoses Status post total left knee replacement Procedures XR KNEE POST OP 3V AP/LAT/MERCHANT LEFT RADIOLOGIC EXAMINATION KNEE 3 VIEWS Debbie Batista PA-C [address] [place] [address] [place] [id number] Referral ID Status Reason Start Date Expiration Date V isits Requested Visits Authorized [id number] Closed Auto-Generated Referral Financial Clearance Not Required 05/21/2022 06/20/2023 1 1 [facility] for referral (narrative)No reason for referral information [facility] Work Phone: Reason for visit Narrative* Diagnostic Procedure Only (Routine) - Closed Specialty Diagnoses / Procedures Referred By Contac t Referred To Contact CT IMAGING Diagnoses Pain due to internal orthopedic prosthetic devices, implants and grafts, initial... Procedures CT KNEE WO IVCON LT Debbie Batista PA-C [phone] Imaging Referral ID Status Reason Start Date Expiration Date V isits Requested Visits Authorized [id number] Closed OON/Self Pay Override 05/22/2022 11/18/2022 1 0 [facility] Summary Purpose Family History No Family History Records FoundNo Family History Records FoundNo Family History Records FoundNo Family History Records FoundNo Family History Records FoundNo Family History Records FoundNo Family History Records FoundNo Family History Records FoundNo Family History Records FoundNo Family History Records Found Advance Directives No Advanced Directives Records FoundDocuments on File Type Date Recorded Patient Application Support Lead Expl anation Advance Directive(s) 03/10/2018 4:43 PM Date Activated Date Inactivated Comments 12/01/2019 2:03 PM 12/19/2020 2:08 AM Latest Code Status on File Code Status Date Activated Date Inactivated Comments Full Code 12/01/2019 2:03 PM 12/19/2020 2:08 AM Documents on File Type Date Recorded Patient Application Support Lead Expl anation Advance Directives and Living Will Power of Hearth Feeder Latest Code Status on File Code Status Date Activated Date Inactivated Comments Full Code 11/04/2019 9:10 PM Limited 10/12/2019 1:14 PM 10/25/2019 6:17 PM Intubation/Re-intubation: No Defibrillation/Cardioversion: No Chest Compressions: No Resuscitative Medications: No Other (Specify in Free Text): OK for NIV Full Code 10/03/2019 11:26 AM 10/12/2019 1:14 PM Documents on File Type Date Recorded Patient Application Support Lead Expl anation ACP-Advance Directive ACP-Power of Hearth Feeder DNR Documentation 10/27/2019 8:41 AM Latest Code Status on File Code Status Date Activated Date Inactivated Comments Full Code 01/27/2020 11:12 PM Full Code 11/04/2019 9:10 PM 11/05/2019 1:25 AM Latest Code Status on File Code Status Date Activated Date Inactivated Comments Limited 10/12/2019 1:14 PM Documents on File Type Date Recorded Patient Application Support Lead Expl anation ACP-Advance Directive ACP-Power of Hearth Feeder ACP-Do Not Resuscitate 10/27/2019 8:41 AM Latest Code Status on File Code Status Date Activated Date Inactivated Comments Full Code 01/27/2020 11:12 PM 02/03/2020 6:47 PM Documents on File Type Date Recorded Patient Application Support Lead Expl anation Advance Directive(s) 01/06/2021 4:29 AM [...] Documents on File Type Date Recorded Patient Application Support Lead Expl anation Advance Directive(s) 03/10/2018 4:43 PM Latest Code Status on File Code Status Date Activated Date Inactivated Comments Full Code 12/01/2019 2:03 PM 12/19/2020 2:08 AM Documents on File Type Date Recorded Patient Application Support Lead Expl anation DNR (Do Not Resuscitate) 10/03/2019 DNR (Do Not Resuscitate) 04/26/2015 Latest Code Status on File Code Status Date Activated Date Inactivated Comments Full Code 12/01/2019 2:03 PM 12/19/2020 2:08 AM Date Activated Date Inactivated Comments 12/01/2019 2:03 PM 12/19/2020 2:08 AM History of Present Illness * Jan Zepeda MD - 11/04/2019 9:29 PM EDT Discussed Mrs. Nguyen's case with Dr. Parrish ([facility] Orthopaedic Surgeon). Patient to be transferred to [facility]. Discussed with [facility] call center and transportation. Discussed with IMS at [facility] - will be accepting transfer. Transfer pending. Please page [phone] or public opinion survey taker resident with questions or concerns. Jan Zepeda MD PGY-2, Orthopaedic Surgery [phone] 11/04/2019 .9:46 PM * Jan Zepeda MD - 11/04/2019 8:15 PM EDT documented in this encounter* Delisa Guaman RN - 02/03/2020 3:48 PM EDT [facility] Informed them that the patient is scheduled to be picked up at 1600. * Kristen Howard OTA - 02/03/2020 1:37 PM EDT Occupational Therapy Facility/Department: [facility]E TELEMETRY Daily Treatment Note NAME: Charlie [...] SNF later today. ARTHUR Tierney * Yamilka Yeboah, MANAGER HOUSE - SECRETARY TO THE VICE PRESIDENT - 02/02/2020 12:09 PM EDT Hospitalist Progress [...] Headache Ischemic colitis (HCC) MS (multiple sclerosis) ([facility]) -am labs, replace lytes prn -increase activity -DVT prophylaxis: [] Lovenox [] Heparin [] SCDs [x] Encourage ambulation [x] Already on Anticoagulation Advance Directive: Full Code Discharge planning: Needs SNF Division of Hospitalist Medicine Inpatient Medical Services * Elidia Solis MD - 02/02/2020 11:41 AM EDT I filled out the expert evaluation and faxed it to [phone] * Deja Koehler MD - 02/02/2020 8:05 [...] PM EDT Physical Therapy Facility/Department: [facility] 2E TELEMETRY Daily Treatment Note NAME: Charlie Nguyen : 1955 Date of Service: 02/01/2020 Discharge Recommendations: Subacute/Retirement Facility Assessment Assessment: Pt still presents with [...] past medical history of Anxiety, Brain tumor ([facility]), Depression, GERD (gastroesophageal refluxdisease), Headache, Ischemic colitis ([facility]), and MS (multiple sclerosis) ([facility]). has a past surgical history that includes [...] Admit Date: 01/27/2020 PCP: Moreno Oates Room#: 255/2550 Interval History: Pt had a better night, [...] 15.8* PLT 257 264 BMP: Recent Labs 01/30/2051801/31/20 0549 NA 140 140 K 3.9 3.7 [...] AM EDT Physical Therapy Facility/Department: [facility] TELEMETRY Daily Treatment Note NAME: Charlie [...] AM EDT Occupational Therapy Facility/Department: [facility] TELEMETRY Daily Treatment Note NAME: Charlie Nguyen : 1955 Date of Service: 01/31/2020 Discharge Recommendations: Subacute/Retirement Facility Assessment Performance deficits / Impairments: Decreased [...] Ischemic colitis (HCC), and MS (multiple sclerosis) ([facility]). has a past surgical history that includes [...] Code Treatment Minutes: 25 Minutes(2x FA) ARTHUR Robles/Catrachito * Kiley Goff PA-C - 01/31/2020 9:57 AM EDT While evaluating the pt, she started telling me about some hallucinations she appeared to have thismorning. She states some killer white moths came in and killed all three of her cats. Tried re-orienting the patient, because at this present time she does know she is in [facility], but she is still very much [...] loss Fluid Accumulation: 1 - Mild Extremities Revenue Liaison Strength: Not Performed Estimated Daily Nutrient Needs: Energy (kcal): 3006-2561 kcals; Weight Used for Energy Requirements: Liberty Protein (g): 70-84 g(1-1.2); Weight Used for Protein Requirements: Liberty Fluid (ml/day): 7034-3044 ml/day or per MD; Weight Used for Fluid Requirements: Liberty Nutrition Related Findings: +1 BLE edema, Cl [...] Usual Body Weight: 270 lb (122.5 kg)(10/03/19) Liberty Body Weight: 155 lbs; % Liberty Body Weight 164.5 % BMI: 35.6 Adjusted [...] Admit Date: 01/27/2020 PCP: Moreno Oates Room#: 260/5350 Interval History: No overnight issues. The pt [...] AM EDT Physical Therapy Facility/Department: [facility] TELEMETRY Initial Assessment NAME: Charlie Nguyen : 1955 Date of Service: 01/29/2020 Having reviewed the treatment plan and goals for this patient, I certify that the plan of care below is medically necessary and appropriate. Discharge Recommendations: Subacute/Retirement Facility PT Equipment Recommendations Equipment Needed: No [...] Ischemic colitis (HCC), and MS (multiple sclerosis) ([facility]). has a past surgical history that includes [...] Rehab Service Department Physical Therapist. AM-PAC Score [facility] Inpatient Mobility Raw Score : 15 (01/29/201129) AM-PAC Inpatient T-Scale Score : 39.45 (01/29/201129) Mobility Inpatient CMS 0-100% Score: 57.7 (01/29/201129) Mobility Inpatient CMS G-Code Modifier : CK (01/29/201129) Goals Short term goals Time Frame for Short term goals: 1 week. Short term goal 1: Charlie will perform all mobility with standby assistance. Short term goal 2: Charile will perform all transfers with minimum assistance. [...] 1955 Date of Service: 01/29/2020 Discharge Recommendations: Subacute/Retirement Facility Assessment Performance deficits / Impairments: Decreased [...] Ischemic colitis (HCC), and MS (multiple sclerosis) ([facility]). has a past surgical history that includes [...] Inpatient CMS G-Code Modifier : CK (01/29/20 111) Goals Short term goals Time Frame for [...] PT) Time Out 0945 Minutes 16 Arlin Baltazar OT * Fermin Davenport DTR - 01/29/2020 7:24 AM EDT Nutrition rescreen completed. Pt referred to RD. * Deja Lay PT - 01/28/2020 3:10 PM EDT Physical Therapy Facility/Department: [facility]E TELEMETRY Daily Treatment Note NAME: Charlie Nguyen : 1955 Date of Service: 01/28/2020 Attempted unable to arouse for PT Deja Lay PT * Kiley Goff PA-C - 01/28/2020 10:19 AM EDT Hospitalist Progress Note 01/28/2020 10:19 AM Subjective: Admit Date: 01/27/2020 PCP: Moreno Oates Room#: 260/2606 Interval History: No overnight issues. The pt [...] 16.2* PLT 318 280 BMP: Recent Labs 01/27/202 01/28/20 0535 NA 140 138 K 2.6* 3.2* CL 98 102 CO2 35* 30 BUN 26* 20 CREATININE 0.61 0.46* GLUCOSE 100 91 CALCIUM 8.5 8.0* ANIONGAP 6 6 LIVER PROFILE: Recent Labs 01/27/20 1852 01/28/20 0535 AST 26 26 ALT 14 13 [...] PM EDT Called report to Russell fairchild [facility]. * Carlos Degroot, PT - 10/25/2019 1:30 [...] changes. Sandie Taylor OT * Kristen Burton, CHIEF II DISPATCHER - 10/25/2019 11:45 AM EDT Speech Language Pathology Facility/Department: [facility] TELE[facility] Speech Language/Dysphagia Daily Therapy Note [...] per plan of care. Kristen Burton M.A., CCC-CHIEF II DISPATCHER Speech-Language Pathologist Time in 1135 Time out 1145 * Clinton Deleon MD - 10/25/2019 11:10 AM EDT [facility] [place] [address] [place] [id number] Patient - Charlie Nguyen, Age - 64 y.o. - 1955 Room Number - 460/4601 Consulting - Max Bob DO Primary Care Physician - Moreno Oates Date of Admission - 10/03/2019 7:34 AM Hospital Day - I have evaluated the patient and reviewed the case with the PARAEDUCATOR. I agree with the current plan of [...] OR ondansetron, acetaminophen Labs CBC Recent Labs 10/25/19 032 WBC 8.7 HGB 12.3 HCT 38.5 MCV [...] N95 MASK, Gown, FACE SHIELD AND GLOVES [phone]: Please page me @ [phone] for patient care issues. [phone]: Please page [facility] night Hospitalist for any issues. Subjective: [...] LIVER PROFILE: Recent Labs 10/22/19 0555 10/23/19 03410/24/19 0450 AST 56* 44 41 ALT 100* [...] GERD (gastroesophageal reflux disease) Headache Ischemic colitis ([facility]) MS (multiple sclerosis) ([facility]) Plan : Pysch cleared for I/P stay, [...] Services This report was created using the [employer] voice- activated system. Despiteprompt dictation and [...] 10/23/2019 12:45 PM EDT Patient transferred to [facility] from [facility]. 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 pt awaiting breakfast/ speech therapy following Malnutrition Assessment: Malnutrition Status: At risk for malnutrition(as previously assessed per RD) Context: Acute illness or injury Nutrition Risk Level: High Nutrient Needs: Estimated Daily Total Kcal: 4797-4826 kcals(25-28) Estimated Daily Protein (g): 66-79(1-1.2) Estimated [...] gain in 11 months (240# on 10/2018) [place] Wt: 145 lb (65.8 kg), % [place] 186 BMI Classification: BMI > or equal to 40.0 Obese Class III Nutrition Interventions: Continue current diet, Continue current ONS Continued Inpatient Monitoring, Speech Therapy Nutrition Evaluation: Evaluation: Progressing toward goals(diet advanced 10/12 mold press operator following ) Goals: pt will receive/tolerate adequate nutrition with safe swallow; Intakes will be >75% of meals/supplements Monitoring: Meal Intake, Supplement Intake, Diet Tolerance, Skin Integrity, Wound Healing, I&O,Mental Status/Confusion, Weight, Pertinent Labs, Chewing/Swallowing, Monitor Hemodynamic Status, Monitor Bowel Function Contact Number: [phone] * Nathaly Javier PT - 10/21/2019 8:48 AM EDT Physical Therapy Facility/Department: [facility] Initial Assessment NAME: Charlie Nguyen : 1955 Date of Service: 10/21/2019 Chart review completed. 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 Nathaly Javier, PT * Kristen Burton, CHIEF II DISPATCHER - 10/21/2019 8:47 AM EDT Speech Language Pathology Facility/Department: [facility] Speech Language/Dysphagia Daily Therapy Note NAME: [...] per plan of care. Kristen Burton M.A., CCC-CHIEF II DISPATCHER Speech-Language Pathologist Time in 817 Time out 847 * Sandie Taylor OT - 10/21/2019 7:53 AM EDT Occupational Therapy Facility/Department: [facility] Daily Treatment Note NAME: Charlie Nguyen : 1955 Date of Service: 10/21/2019 Discharge Recommendations: Subacute/Retirement Facility, Continue to assess pending progress, LTACH Pt with WEB MOBILE DESIGNER and [facility]. Please re-order therapy when medically stable. Sandie Taylor OT * Doris Brink PTA - 10/21/2019 7:43 AM EDT Physical Therapy Facility/Department: [facility] Daily Treatment Note NAME: Charlie Nguyen : 1955 Date of Service: 10/21/2019 General Chart Reviewed: Yes Missed reason: (Pt WEB MOBILE DESIGNER'd a second time and transferred [facility]. PT to address need for new orders vs continuation of treatment.) Doris Brink PTA * Des Romero MD - 10/21/2019 6:31 AM EDT [facility] and [place] Medicine [address] [place] [address] Critical Care Note: Patient - Charlie Nguyen, [...] Date 10/21/19 0000 - 10/21/19 2359 Shift 8550-3227 0850-7559 7634-6876 24 Hour Total INTAKE Shift Total(mL/kg) OUTPUT [...] by psychiatry was to be transferred to [place] once clinically stable History of multiple sclerosis/debility [...] Romero MD - 10/20/2019 3:46 PM EDT [facility] [place] [place] and Sleep Medicine [address] [place] [address] Critical Care Note: Patient - Charlie Nguyen, Age - 64 y.o. - 1955 Room Number - 232/2326 [id number] Date of Admission - 10/03/2019 7:34 AM [...] was filled out and give to the forensic social worker. I also spoke with her daughter and informed her that evaluation has been filled out. Signing off for now. Contact with any concerns or questions * Doris Brink PTA - 10/20/2019 1:21 PM EDT Physical Therapy Facility/Department: [facility] 2E TELEMETRY Daily Treatment Note NAME: Charlie Nguyen : 1955 Date of Service: 10/20/2019 General Chart Reviewed: Yes Missed reason: (Pt just WEB MOBILE DESIGNER'd. Will hold therapy until more stabilized and may need PT to readdressgoals. Will continue to follow) Doris Brink ELEMENT WINDING MACHINE TENDER * Kristen Burton, CHIEF II DISPATCHER - 10/20/2019 1:10 PM EDT Speech Language Pathology Pt with recent WEB MOBILE DESIGNER. Pt became unresponsive and eyes rolled back in head. D/W Dr. Corona briefly after WEB MOBILE DESIGNER. Neurology was consulted. Will follow up as medically stable. Concern with aspiration and crackles bases/rhonchi. Pt's status waxes and wanes. * Kristen Howard OTA - 10/20/2019 12:03 PM EDT Occupational Therapy Facility/Department: [facility]E TELEMETRY Daily Treatment Note NAME: Charlie Nguyen : 1955 Date of Service: 10/20/2019 Discharge Recommendations: Subacute/Retirement Facility, Continue to assess pending progress, LTACH [...] Deleon MD - 10/20/2019 10:30 AM EDT [facility] and Sleep Medicine [address] [place], [place] [id number] Patient - Charlie Nguyen, Age - 64 y.o. - 1955 Room Number - [id number]/2581 Consulting - Max Bob DO Primary Care Physician - Moreno Oates Date of Admission - 10/03/2019 7:34 AM Hospital Day - 17 I have evaluated the patient and reviewed the case with the PARAEDUCATOR. I agree with the current plan of [...] in bed. Confused this morning believing her construction economist is her telephone.However more awake and alert [...] encounter [Z51.5] 10/20/2019 Unspecified mood (affective) disorder ([facility]) [F39] Acute respiratory failure with hypoxia ([facility]) [J96.01] Intentional drug overdose ([facility]) [T50.902A] 10/03/2019 Drug overdose, multiple drugs, accidental or unintentional, initial encounter [E38.555H] 10/03/2019 Assessment and Plan Acute hypoxic respiratory failure s/p mechanical ventilation likely r/t aspiration - Extubated 10/11 - Continue supplemental O2 to maintain SpO2 92%. Wean off as patient tolerates. - BD therapy continued. - Declined BiPAP last night. Unresponsive episode 10/18/19 - more awake and alert this morning. Lying in bed. - WEB MOBILE DESIGNER was called 10/17. ABG normal. CXR no [...] Planning for LTAC at discharge. Addendum 1250 WEB MOBILE DESIGNER called again today for patient as patient [...] Man, DO - 10/20/2019 10:05 AM EDT [facility] Palliative Care Transitions of Care Note Charlie [...] baseline patient is non-ambulatory and transfers to [place] at home. She has not walked in [...] legally her ( 5-6 years), Brayden Nguyen ([phone]). Family prefers that Vicente Driscoll (daughter) is contacted first ([phone]). She has 2 living adultchildren (Vicente and [...] issue per family -see Dr Celestin in [place] -psych following Multiple sclerosis/debility -follows with the [facility] as outpatient -uses wheelchair at baseline [...] EDT Hospitalist Progress Note 10/20/2019 8:01 AM [phone]: Please page me ([phone]) for patient care issues. [phone]: Please page [facility] night Hospitalist for any issues. Subjective: Admit Date: 10/03/2019 PCP: Moreno Oates Room#: 020/8545 Interval History: Pt with increased confusion today. [...] of Hospitalist Medicine Inpatient Medical Services PAGER: [phone] * Sunday Cao RN - 10/20/2019 4:42 AM EDT Pt Mushtaq hunter not able to draw morning lab. Notified Dr. Dr. Ford. * Sepideh Lopez RCP - 10/20/2019 12:01 AM EDT [facility] Respiratory Care Department Progress Note Patient [...] Allowed to verbalize concerns. * Kristen Burton, CHIEF II DISPATCHER - 10/19/2019 10:48 AM EDT Speech Language Pathology Facility/Department: [facility]E TELEMETRY Speech Language/Dysphagia Daily Therapy Note NAME: [...] refused her tylenol for nursing. Pt experienced WEB MOBILE DESIGNER lastevening with period of unresponsiveness. She had audible wheezes and crackles-cxray was negative for new processes: The trachea is midline. The heart is not enlarged. No focal areas of consolidation or volume loss are seen. There are no pleural effusions. The pulmonary vasculature may be at most mildly congested. The visualized bony structures are intact. D/C to [facility] was cx. Last pm (10/17) 3L nasal [...] more appropriate. Spoke briefly with Palliative Care, MD re: pt status. Plan: Continued daily Speech/Language and dysphagia treatment with goals per plan of care. Kristen Burton M.A., CCC-CHIEF II DISPATCHER Speech-Language Pathologist Time in 950 Time out 1031 * Clinton Deleon MD - 10/19/2019 10:48 AM EDT [facility] and Sleep Medicine [address] [place], [place] [id number] Patient - Charlie Nguyen, Age - 64 y.o. - 1955 Room Number - 258/[id number] Consulting - Max Bob DO Primary Care Physician - Moreno Oates Date of Admission - 10/03/2019 7:34 AM Hospital Day - 16 I have evaluated the patient and reviewed the case with the PARAEDUCATOR. I agree with the current plan of care including the workup, evaluation, management, and diagnosis. Care plan has been discussed. I independently examined and evaluated the patient. The documentation below has been reviewed and edited as needed to reflect the findings of my evaluation WEB MOBILE DESIGNER was called on the patient yesterday for change in MS ABG/ Cxray reviewed follow neurologically Has been placed on empiric antibiotics Subjective/Events Past 24 hours/ROS Patient awake lying in bed. Complains of headache and nausea this morning. On 4 liters NC. Wearing BiPAP at night. WEB MOBILE DESIGNER called yesterday as patient became unresponsive and [...] Diagnosis Date Noted Unspecified mood (affective) disorder ([facility]) [F39] Acute respiratory failure with hypoxia ([facility]) [J96.01] Intentional drug overdose ([facility]) [T50.902A] 10/03/2019 Drug overdose, multiple drugs, accidental or unintentional, initial encounter [T50.911A] 10/03/2019 Assessment and Plan Acute hypoxic respiratory failure s/p mechanical ventilation likely r/t aspiration - Extubated 10/11 - Continue supplemental O2 to maintain SpO2 92%. Wean off as patient tolerates. - If plans are to d/c home with [facility] will need home O2 evaluation. - BD therapy - f/u CXR reviewed Unresponsive episode 10/18/19 - patient still a sleepy this morning however she is responding to questions - WEB MOBILE DESIGNER was called. ABG normal. CXR no significant [...] EDT Hospitalist Progress Note 10/19/2019 7:12 AM [phone]: Please page me ([phone]) for patient care issues. [phone]: Please page [facility] night Hospitalist for any issues. Subjective: Admit Date: 10/03/2019 PCP: Moreno Oates Room#: [id number]/9538 Interval History: WEB MOBILE DESIGNER called for unresponsiveness overnight. See significant event [...] GERD (gastroesophageal reflux disease) Headache Ischemic colitis ([facility]) MS (multiple sclerosis) ([facility]) Medications: ampicillin-sulbactam (UNASYN) 3 g ivpb minibag [...] up to transfer last night prior to WEB MOBILE DESIGNER; Plan now for guardianshipand placement 5. Transaminitis [...] of Hospitalist Medicine Inpatient Medical Services PAGER: [phone] * Ashley Miller RN - 10/18/2019 7:13 PM EDT tulio notified of 3.1 potassium. * Ashley Miller RN - 10/18/2019 5:43 PM EDT Discharge cancelled. Patient remaining on 2 east after WEB MOBILE DESIGNER called. [facility] notified. * Ashley Miller RN - 10/18/2019 4:25 PM EDT NOTIFIED PATIENT'S DAUGHTER, VICENTE, OF TRANSFER TONIGHT TO [facility] AROUND 8PM PICKUP. * Ashley Miller RN - 10/18/2019 4:13 PM EDT REPORT GIVEN TO DEISY BARAJAS AT [facility]. ETA OF AMBULANCE IS 2000 HRS. * Ashley Miller RN - 10/18/2019 3:49 PM EDT ATTEMPTED TO CALL REPORT TO RN ON 5WEST. * Ashley Miller RN - 10/18/2019 3:46 PM EDT PATIENT GOING TO [facility] . ROOM 577B [phone] (REPORT LINE). * Ashley Miller RN - 10/18/2019 3:[address] REPORTER DISCONTINUED. PATIENT HAS BED NOW AT [facility] . WILL CALL REPORT DIRECTLY AND ARRANGE FOR TRANSPORT. * Kristen Burton SLP - 10/18/2019 2:07 PM EDT Speech Language Pathology Facility/Department: [facility] 2E TELEMETRY Initial Speech/Language/Cognitive Assessment NAME: Charlie [...] oriented to place and time. Recommendations: Requires CHIEF II DISPATCHER Intervention: Yes Duration/Frequency of Treatment: 5 visits [...] Alone Type of Home: House Cognition: [facility] Cognitive Assessment. Version 7.1 Visuo-Spatial / Executive [...] PM EDT Physical Therapy Facility/Department: [facility] TELEMETRY Daily Treatment Note NAME: Charlie Nguyen : 1955 Date of Service: 10/18/2019 General Chart Reviewed: Yes Missed reason: (Pt held secondary to being discharged to psychiatric hospital today per CM.) Doris Brink PTA * Kristen Burton SLP - 10/18/2019 1:16 PM EDT Speech Language Pathology Facility/Department: [facility] 2E TELEMETRY Dysphagia Treatment Note Late entry [...] alertness. Total Minutes: 20 minutes Kristen Burton M.A.CCC/CHIEF II DISPATCHER Speech-Language Pathologist * Lisa Townsend RD, LD - 10/18/2019 11:05 AM EDT Nutrition Assessment Type and Reason for Visit: Reassess Nutrition Recommendations: 1. Continue with Dental soft. Will send chopped meats and well done/cut up vegetables. CHIEF II DISPATCHER following. 2. Continue with Ensure high protein [...] time. Pt continues to have decreased PO. CHIEF II DISPATCHER is following to ensure safe swallow on [...] BUE edema; +2 pitting BLE edema 6. Revenue Liaison Strength-Measurably reduced(per RN flowsheet assessment) Nutrition Risk Level: High Nutrient Needs: Estimated Daily Total Kcal: 2420-2577 kcals(25-28) Estimated Daily Protein (g): 66-79(1-1.2) Estimated [...] gain in 11 months (240# on 10/2018) [place] Wt: 145 lb (65.8 kg), % [place] 186 BMI Classification: BMI > or [...] capacity to make any decisions about her alexandra care at this time. If treated she [...] notified. Will continue to monitor. * Shaheen Man, - 10/17/2019 4:45 PM EDT Palliative Care [...] legally her ( 5-6 years), Brayden Nguyen ([phone]). Family prefers that Vicente Driscoll (daughter) is contacted first ([phone]). She has 2 living adultchildren (Vicente and [...] issue per family -see Dr Celestin in [place] -psych following Multiple sclerosis/debility -follows with the [facility] as outpatient -uses wheelchair at baseline [...] of Life, Remain at Home and Preserve [place]/Autonomy/Control Advance Directives: limited code- no CPR or intubation, okay for NIV Surrogate: Spouse Prognosis: unknown Spiritualassessment: No spiritual distress identified Bereavement and grief: To Be Determined ROS: See palliative care ROS/ESAS below; see HPI Review of Systems Social history: Centre status: no Marital status: , 5-6 years [...] Psychiatric: Comments: Talking with bizarre tangential thoughts Giltner Symptom Assessment Score Giltner Score Pain Score 0 Tiredness Score 5 [...] 64 y.o. female who was seen for [id number] on 10/10/19 who is hospice appropriate with an expected prognosis of 6 months or less due to the following: Not applicable Write hospice narrative \ * Kristen Howard OTA - 10/17/2019 2:55 PM EDT Occupational Therapy Facility/Department: [facility] TELEMETRY Daily Treatment Note NAME: Charlie Nguyen : 1955 Date of Service: 10/17/2019 Discharge Recommendations: Subacute/Retirement Facility, Continue to assess pending progress, LTACH [...] attending to directions;Difficulty dividing attention Memory: Decreased filler leaf cutter long memory;Decreased short term memory;Decreased recall of recent [...] known 100% of the time this admission. FAWN attempted to educate pt public opinion survey taker button but pt not attending. Patient Goals Patient goals : improve ADL indep Therapy Time Individual Concurrent Group Co-treatment Time In 1255 Time Out 1308 Minutes 13 Timed Code Treatment Minutes: 12 Minutes(ther ex) ARTHUR Tierney * Kristen Burton SLP - 10/17/2019 2:40 PM EDT Speech Language Pathology Facility/Department: [facility] 2E TELEMETRY Dysphagia Treatment Note NAME: Charlie Nguyen : 1955 Patient Diagnosis(es): Patient Active Problem List Diagnosis Migraine Internal derangement of right knee Glioma (HCC) Hypertension Chronic nonintractable headache Intentional drug overdose (HCC) Drug overdose, multiple drugs, accidental or unintentional, initial encounter Acute respiratory failure with hypoxia (HCC) Unspecified mood (affective) disorder ([facility]) Allergies: Allergies Allergen Reactions Macrobid [Nitrofurantoin Monohyd Macro] Hives Hydrocodone-Acetaminophen Other reaction(s): GI Upset Didn't do anything for her pain Keflex [Cephalexin] Anxiety 4 L nasal cannula-pt O2 was off when CHIEF II DISPATCHER entered SpO2 was 87% and increased to [...] don't have MS, someone lied about that. CHIEF II DISPATCHER only asked her if she was in [...] eval. Total Minutes: 21 minutes Kristen Burton M.A.CCC/CHIEF II DISPATCHER Speech-Language Pathologist * Doris Brink, ELEMENT WINDING MACHINE TENDER - 10/17/2019 9:39 AM EDT Physical Therapy Facility/Department: [facility]E TELEMETRY Daily Treatment Note NAME: Charlie Nguyen : 1955 Date of Service: 10/17/2019 Discharge Recommendations: Subacute/Retirement Facility Assessment Assessment: Pt demonstrated an improvement [...] diagnosis was Intentional drug overdose, initial encounter ([facility]). Diagnoses of Acute hypoxemic respiratory failure ([facility]) and Leukocytosis, unspecified type were also pertinent to this visit. has a past medical history of Anxiety, Brain tumor ([facility]), Depression, GERD (gastroesophageal refluxdisease), Headache, Ischemic colitis ([facility]), and MS (multiple sclerosis) ([facility]). has a past surgical history that includes [...] attending to directions;Difficulty dividing attention Memory: Decreased senior care memory;Decreased short term memory;Decreased recall of recent [...] Brink PTA * Ching Sethi, DAGOBERTO - SECRETARY TO THE VICE PRESIDENT - 10/17/2019 9:02 AM EDT [facility] and [place] [address] [place] [id number] Patient - Charlie Nguyen, Age - 64 [...] - Regular rate and rhythm on the desk maker. Abdomen - obese. Neurologic - Awake, alert, [...] Diagnosis Date Noted Unspecified mood (affective) disorder ([facility]) [F39] Acute respiratory failure with hypoxia ([facility]) [J96.01] Intentional drug overdose ([facility]) [T50.902A] 10/03/2019 Drug overdose, multiple drugs, accidental or unintentional, initial encounter [T50.911A] 10/03/2019 Assessment and Plan Acute hypoxic respiratory failure s/p mechanical ventilation likely r/t aspiration - Extubated 10/11 - Continue supplemental O2 to maintain SpO2 92%. Wean off as patient tolerates. - If plans are to d/c home with [facility] will need home O2 evaluation. - BD [...] EDT Hospitalist Progress Note 10/17/2019 7:23 AM [phone]: Please page me ([phone]) for patient care issues. [phone]: Please page [facility] night Hospitalist for any issues. Subjective: [...] Headache Ischemic colitis (HCC) MS (multiple sclerosis) ([facility]) Medications: metoprolol 50 mg Oral BID cloNIDine [...] PLT 654* 575* BMP: Recent Labs 10/15/19 0510/16/19 0352 NA 143 142 K 3.6 3.6 CL 109* 107 CO2 24 24 BUN 24* 24* CREATININE 0.56 0.53 GLUCOSE 117* 105* CALCIUM 8.2* 8.1* ANIONGAP 10 11 LIVER PROFILE: Recent Labs 10/15/19 0516 10/16/19 035 AST 146* 86* ALT 289* 219* BILITOT [...] negative Plan -Psych re-evaluation - Placement vs [facility] -palliative care following -am labs, replace lytes prn -increase activity/PT/OT -DVT prophylaxis: [x] Lovenox [] Heparin [] SCDs [x] Encourage ambulation [] Already on Anticoagulation Advance Directive: Limited Discharge plannin-48 hours pending return visit from Psychiatry Scott Corona MD Division of Hospitalist Medicine Inpatient Medical Services PAGER: [phone] * Danisha Clinton RN - 10/17/2019 4:51 [...] has been refusing turning/repositioning. * Angela Callejas, ELEMENT WINDING MACHINE TENDER - 10/16/2019 12:10 PM EDT Physical Therapy Facility/Department: [facility] 2E TELEMETRY Daily Treatment Note NAME: Charlie Nguyen : 1955 Date of Service: 10/16/2019 Discharge Recommendations: Subacute/Retirement Facility Assessment Assessment: Pt has weak quad contraction on RLE and unable to to perform a SAQ. Pt would benefit from therapy to progress safe functional mobility REQUIRES PT FOLLOW UP: Yes Activity Tolerance Activity Tolerance: Patient limited by fatigue;Patient limited by endurance Patient Diagnosis(es): The primary encounter diagnosis was Intentional drug overdose, initial encounter ([facility]). Diagnoses of Acute hypoxemic respiratory failure (HCC) and Leukocytosis, unspecified type were also pertinent to this visit. has a past medical history of Anxiety, Brain tumor ([facility]), Depression, GERD (gastroesophageal refluxdisease), Headache, Ischemic colitis (HCC), and MS (multiple sclerosis) ([facility]). has a past surgical history that includes [...] EDT Hospitalist Progress Note 10/16/2019 8:57 AM [phone]: Please page me ([phone]) for patient care issues. [phone]: Please page [facility] night Hospitalist for any issues. Subjective: Admit Date: 10/03/2019 PCP: Moreno Oates Room#: 650/4161 Interval History: Pt more verbal today. Repeatedly [...] of Hospitalist Medicine Inpatient Medical Services PAGER: [phone] * Scott Corona MD - 10/15/2019 7:39 AM EDT Hospitalist Progress Note 10/15/2019 7:39 AM [phone]: Please page me ([phone]) for patient care issues. [phone]: Please page [facility] night Hospitalist for any [...] Intake/Output Summary (Last 24 hours) at 10/15/2019 0759 Last data filed at 10/15/2019 0355 Gross [...] mg Subcutaneous Daily LABS: CBC: Recent Labs 05/1432610/14/1942510/15/19 0516 WBC 15.9* 19.8* 17.4* RBC 3.78* [...] of Hospitalist Medicine Inpatient Medical Services PAGER: [phone] * Shaheen Man DO - 10/14/2019 4:46 PM EDT Palliative Care Progress Note Chief Complaint: Charlei Nguyen is a 64 y.o. female with [...] legally her ( 5-6 years), Brayden Nguyen ([phone]). She has 2 living adult children (Vicente [...] issue per family -see Dr Celestin in [place] -psych following Multiple sclerosis/debility -follows with the [facility] as outpatient -uses wheelchair at baseline [...] of Life, Remain at Home and Preserve [place]/Autonomy/Control Advance Directives: limited code- no CPR or intubation, okay for NIV Surrogate: Spouse Prognosis: unknown Spiritualassessment: No spiritual distress identified Bereavement and grief: To Be Determined ROS: See palliative care ROS/ESAS below; see HPI Review of Systems Social history: Centre status: no Marital status: , 5-6 years [...] response to questions, appears flat and depressed Giltner Symptom Assessment Score Giltner Score Pain Score 0 Tiredness Score 5 [...] 64 y.o. female who was seen for [id number] on 10/10/19 who is hospice appropriate with an expected prognosis of 6 months or less due to the following: Not applicable Write hospice narrative \ * Kristen Burton, JIM - 10/14/2019 1:28 PM EDT Speech Language Pathology Facility/Department: [facility] TELEMETRY Dysphagia Treatment Note NAME: Charlie [...] They don't need to make me Omar Mares. Pt was unable to elaborate on this [...] of encouragement. Pt accepted 1/2 piece of Swedish toast, 6 b ites of cottage cheese, [...] (recline slightly) Total Minutes: 30minutes Kristen Burton M.A.CCC/CHIEF II DISPATCHER Speech-Language Pathologist * Max Bob, - 10/14/2019 12:08 PM EDT Hospitalist Progress Note 10/14/2019 12:08 PM [phone]: Please page me ([phone]) for patient care issues. [phone]: Please page [facility] night Hospitalist for any issues. Subjective: [...] of Hospitalist Medicine Inpatient Medical Services PAGER: [phone] * Kristen Burton, CHIEF II DISPATCHER - 10/14/2019 11:35 AM EDT Speech Language Pathology Attempted at 10:30. Pt continue very flat with limited participation. Will attempt again at later time. Kristen Burton MA, CCC-CHIEF II DISPATCHER Speech-Language Pathologist * Lisa Townsend, RD, LD - 10/14/2019 10:01 AM EDT Nutrition Assessment Type and Reason for Visit: Reassess Nutrition Recommendations: 1. Continue with Dental soft diet. CHIEF II DISPATCHER following to ensure safe swallowing. 2. Initiate [...] from ICU and extubated at this time. CHIEF II DISPATCHER is following pt on Dental soft diet. [...] fluid accumulation, Extremities(+2-2 pitting all ext) 6. Revenue Liaison Strength-Not measured Nutrition Risk Level: High Nutrient Needs: Estimated Daily Total Kcal: 2706-8694 kcals(25-28) Estimated Daily Protein (g): 66-79(1-1.2) Estimated [...] lbs. incr 30 lbs in 11 mo? Liberty Body Wt: 145 lb (65.8 kg), % Liberty Body 186 BMI Classification: BMI 35.0 - [...] Number: [phone] * Ching Sethi APRN - SECRETARY TO THE VICE PRESIDENT - 10/14/2019 9:11 AM EDT [facility] [place] and [place] [address] [place] [address] [id number] Patient - Charlie Nguyen, Age - 64 y.o. - 1955 Room Number - 258/2581 Consulting - Max Bob DO [facility] Phys[id number] Date of Admission - 10/03/2019 7:34 AM Hospital Day - 11 Subjective/Events Past 24 hours/ROS Patient awake lying in bed. restaurant assistant at bedside checking vitals. 96% on [...] Diagnosis Date Noted Unspecified mood (affective) disorder ([facility]) [F39] Acute respiratory failure with hypoxia ([facility]) [J96.01] Intentional drug overdose ([facility]) [T50.902A] 10/03/2019 Drug overdose, multiple drugs, accidental [...] patient and reviewed the case with the PARAEDUCATOR. I agree with the current plan of [...] 4:11 PM EDT Speech Language Pathology Facility/Department: [facility] TELEMETRY Dysphagia Treatment Note NAME: Charlie [...] water. Total Minutes: 22 minutes Kristen Burton M.A.CCC/CHIEF II DISPATCHER Speech-Language Pathologist * Shaheen Man DO - [...] multiple drugs, accidental or unintentional, initial encounter [T50.578J] 10/03/2019 Goals of care -patient appears to retain capacity for medical decision-making -surrogate decision-maker is legally her ( 5-6 years), Brayden Nguyen ([phone]). She has 2 living adult children (Vicente [...] -psych following Multiple sclerosis/debility -follows with the [facility] as outpatient -uses wheelchair at baseline -requesting records from [facility] Palliative care encounter -DNRCCA/DNI->ordered as limited [...] of Life, Remain at Home and Preserve [place]/Autonomy/Control Advance Directives: limited code- no CPR or intubation, okay for NIV Surrogate: Spouse Prognosis: unknown Spiritualassessment: No spiritual distress identified Bereavement and grief: To Be Determined ROS: See palliative care ROS/ESAS below; see HPI Review of Systems Social history: Centre status: no Marital status: , 5-6 years [...] time. Psychiatric: Comments: No anxiety or agitation Giltner Symptom Assessment Score Giltner Score Pain Score 0 Tiredness Score 5 [...] 64 y.o. female who was seen for [id number] on 10/10/19 who is hospice appropriate with an expected prognosis of 6 months or less due to the following: Not applicable Write hospice narrative \ * Sandie Taylor, OT - 10/13/2019 1:20 PM EDT Occupational Therapy Occupational Therapy Initial Assessment Date: 10/13/2019 Patient Name: Charlie Nguyen : 1955 Date of Service: 10/13/2019 Discharge Recommendations: Subacute/Retirement Facility, Continue to assess pending progress, LTACH [...] Ischemic colitis (HCC), and MS (multiple sclerosis) ([facility]). has a past surgical history that includes [...] baby wipes per self, transfers self to [place] via couch) Homemaking Assistance: (son brings her food in am and after work daily) Homemaking Responsibilities: (she is unable, daughter reports not getting done) Ambulation Assistance: (does not ambulate) Transfer Assistance: Independent Active Mechanic And Welder: No Patient's Mechanic And Welder Info: son Occupation: On disability Additional Comments: [...] attending to directions;Difficulty dividing attention Memory: Decreased senior care memory;Decreased short term memory;Decreased recall of recent [...] Minutes 14 Sandie Taylor OT * Byron Jackson PT - 10/13/2019 1:20 PM EDT Physical Therapy Facility/Department: [facility]E TELEMETRY Initial Assessment NAME: Charlie Nguyen : 1955 Date of Service: 10/13/2019 Discharge Recommendations: Subacute/Retirement Facility Assessment Body structures, Functions, Activity limitations: Decreased functional mobility ;Decreased strength;Decreased endurance;Decreased cognition;Decreased ROM;Decreased ADL status Assessment: Pt admitted for being unresponsive at home. 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 Diagnoses of Acute hypoxemic respiratory failure (HCC) and Leukocytosis, unspecified type were also pertinent to this visit. has a past medical history of Anxiety, Brain tumor ([facility]), Depression, GERD (gastroesophageal refluxdisease), Headache, Ischemic colitis ([facility]), and MS (multiple sclerosis) ([facility]). has a past surgical history that includes [...] baby wipes per self, transfers self to [place] via couch) Homemaking Assistance: (son brings her food in am and after work daily) Homemaking Responsibilities: (she is unable, daughter reports not getting done) Ambulation Assistance: (does not ambulate) Transfer Assistance: Independent Active Mechanic And Welder: No Patient's Mechanic And Welder Info: son Occupation: On disability Additional Comments: [...] attending to directions;Difficulty dividing attention Memory: Decreased filler leaf cutter long memory;Decreased short term memory;Decreased recall of recent [...] 17 [facility] Goals and/or treatment plan [...] confused. Then soon after pt. Was telling daughterwas not really her on the phone and [...] of the pt. Room. * Nick Stover, [facility] - 10/13/2019 9:23 AM EDT Patient Evaluation [...] y.o. - 1955 Room Number - 232/[id number] [facility] - [id number] Date of Admission - 10/03/2019 7:34 AM [...] Diagnosis Date Noted Unspecified mood (affective) disorder ([facility]) [F39] Acute respiratory failure with hypoxia ([facility]) [J96.01] Intentional drug overdose ([facility]) [T50.902A] 10/03/2019 Drug overdose, multiple drugs, accidental or unintentional, initial encounter [T50.914M] 10/03/2019 All other systems reviewed Vitals height [...] Date 10/13/19 0000 - 10/13/19 2359 Shift 1626-3278 0602-6349 5428-5811 24 Hour Total INTAKE I.V.(mL/kg) 978(8) 978(8) [...] Extremities - no cyanosis, clubbing or edema PLANNER CHIEF- awake and alert Moves all extremities Cranial [...] Questions and concerns addressed. * Kristen Burton, CHIEF II DISPATCHER - 10/12/2019 2:38 PM EDT Speech Language Pathology Facility/Department: [facility] CLINICAL BEDSIDE SWALLOW EVALUATION NAME: Charlie [...] one diet consistency restricted Treatment Plan Requires CHIEF II DISPATCHER Intervention: Yes Duration/Frequency of Treatment: 2 visits D/C Recommendations: Inpatient rehabilitation(psych rehab suspected) Referral To: (Psych Eval, pending s/p extubation) Recommended Diet and Intervention Diet Solids Recommendation: Dental Soft Liquid Consistency Recommendation: Thin Recommended Form of Meds: PO Recommendations: Assist feed Therapeutic Interventions: Patient/Family education;Therapeutic PO trials with CHIEF II DISPATCHER;Diet tolerance monitoring Compensatory Swallowing Strategies Compensatory Swallowing [...] recommendations: Patient;RN Education Patient Education: Role of CHIEF II DISPATCHER, recommendations and need for assist Patient Education Response: Verbalizes understanding;Needs reinforcement Safety Devices in place: Yes Type of devices: Other (comment)(sitter at bedside or safety) Therapy Time CHIEF II DISPATCHER Individual Minutes Time In: 1338 Time Out: 1405 Minutes: 27 JIM Franz 10/12/2019 2:45 PM * Anish Reed [facility] - 10/12/2019 1:21 PM EDT Pharmacy Vancomycin [...] legally her ( 5-6 years), Brayden Nguyen ([phone]). She has 2 living adult children (Vicente [...] consult pending Multiple sclerosis/debility -follows with the [facility] as outpatient -uses wheelchair at baseline -requesting records from [facility] Palliative care encounter -DNRCCA/DNI->ordered as limited [...] time. Psychiatric: Comments: No anxiety or agitation Giltner Symptom Assessment Score Giltner Score Pain Score 0 Tiredness Score 5 [...] 64 y.o. female who was seen for [id number] on 10/10/19 who is hospice appropriate with an expected prognosis of 6 months or less due to the following: Not applicable Write hospice narrative \ * Renay Calix RCP - 10/12/2019 9:27 AM EDT [facility] Respiratory Care Department Progress Note Spontaneous [...] 64 y.o. - 1955 Room Number - [address] [place] [address] [id number] Date of Admission - 10/03/2019 7:34 AM [...] hypoxia (HCC) [J96.01] Intentional drug overdose (HCC) [T50.202A] 10/03/2019 Drug overdose, multiple drugs, accidental or [...] Date 10/12/19 0000 - 10/12/19 2359 Shift 3367-5262 7660-3633 5580-7294 24 Hour Total INTAKE Shift Total(mL/kg) OUTPUT [...] Extremities - no cyanosis, clubbing or edema PLANNER CHIEF- intubated, mechanically ventilated awake currently Lab Results [...] legally her ( 5-6 years), Brayden Nguyen ([phone]). She has 2 living adult children (Vicente [...] consult pending Multiple sclerosis/debility -follows with the [facility] as outpatient -uses wheelchair at baseline [...] mental status Review of Systems Social history: Centre status: no Marital status: , 5-6 years [...] dry. Psychiatric: Comments: No anxiety or agitation Giltner Symptom Assessment Score Giltner Score Pain Score See FLACC Tiredness Score [...] 64 y.o. female who was seen for [id number]-[id number] on 10/10/19 who is hospice appropriate with an expected prognosis of 6 months or less due to the following: Not applicable Write hospice narrative \ * Devin Levine RCP - 10/11/2019 8:20 AM EDT [facility] Respiratory Care Department Progress Note Spontaneous [...] y.o. - 1955 Room Number - 232/2329 [facility] - [id number] [facility] # - [id number] Date of Admission - 10/03/2019 7:34 AM [...] SETTIDVOL, SETPEEP Medications propofol 50 mg/hr (10/10/19 6953) dexmedetomidine (PRECEDEX) IV infusion 1.3 mcg/kg/hr (10/11/19 0216) vancomycin 1,500 mg Intravenous Q12H dexamethasone 4 [...] Extremities - no cyanosis, clubbing or edema PLANNER CHIEF- intubated, mechanically ventilated Lab Results CBC Lab [...] fluid accumulation, Extremities(+2-2 pitting all ext) 6. Revenue Liaison Strength-Not measured Nutrition Risk Level: High Nutrient Needs: Estimated Daily Total Kcal: 6146-2237 Estimated Daily Protein (g): 79-132 Estimated Daily [...] lbs. incr 30 lbs in 11 mo? Liberty Body Wt: 145 lb (65.8 kg), % Liberty Body 186 Adjusted Body Wt: , body [...] Urias RCP - 10/10/2019 8:52 AM EDT [facility] Respiratory Care Department Progress Note Spontaneous [...] y.o. - 1955 Room Number - 232/2329 [facility] - [id number] [facility] [id number] Date of Admission - 10/03/2019 7:34 AM [...] Date 10/10/19 0000 - 10/10/19 2359 Shift 4322-3102 3094-5287 5838-7883 24 Hour Total INTAKE P.O.(mL/kg/hr) 0 0 [...] Extremities - no cyanosis, clubbing or edema PLANNER CHIEF- intubated, mechanically ventilated Lab Results CBC Lab [...] Weak, moist, nonproductive cough noted. Pt HOB [id number] degrees and cough/deep breathing encouraged. Bilateral soft wrist restraints removed. OG discontinued. Will continue to monitor. * Kimberli Delvalle RCP - 10/09/2019 8:57 AM EDT [facility] Respiratory Care Department Progress Note Spontaneous [...] 10/09/2019 7:09 AM EDT Critical Care Note: [facility] [place] Pulmonary [place] Care and Sleep Medicine [address] [place] [address] Patient - Charlie Nguyen, Age - 64 y.o. - 1955 Room Number - 232/2329 [facility] - [id number] Date of Admission - 10/03/2019 7:34 AM [...] Goodrich RCP - 10/08/2019 1:42 PM EDT [facility] Respiratory Care Department Progress Note Spontaneous [...] 10/08/2019 9:51 AM EDT Critical Care Note: [facility] [place] Pulmonary Critical Care and Sleep Medicine [address] [place] [address] Patient - Charlie Nguyen, Age - 64 y.o. - 1955 Room Number - 232/2329 [facility] - [id number] [facility] # - [id number] Date of Admission - 10/03/2019 7:34 AM [...] Date 10/08/19 0000 - 10/08/19 2359 Shift 2243-9825 0382-8810 8237-4304 24 Hour Total INTAKE I.V.(mL/kg) 316(2.6) 316(2.6) [...] dexmedetomidine (PRECEDEX) IV infusion 1.3 mcg/kg/hr (10/08/19 5228) chlorhexidine 15 mL Mouth/Throat BID ampicillin-sulbactam 3 [...] PM EDT Bronchoscopy performed at bedside with Dr, Judy with respiratory at bedside Tolerated well medicated [...] Fluid Accumulation-Mild fluid accumulation, Extremities(+2 ble) 6. Revenue Liaison Strength-Not measured Nutrition Risk Level: High Nutrient Needs: Estimated Daily Total Kcal: 2884-0837 Estimated Daily Protein (g): 79-132 Estimated Daily [...] wbc 11.6,alb 2.8, ca 7.8, corrected ca8.52 n,wadobarj473, jacinto 13:+2 ble, last bm Wound Type: [...] lbs. incr 30 lbs in 11 mo? Liberty Body Wt: 145 lb (65.8 kg), % Liberty Body 186 Adjusted Body Wt: , body [...] Intake/Output Summary (Last 24 hours) at 10/06/2019 06 Last data filed at 10/06/2019 0000 Gross [...] 10/05/2019 10:00 PM EDT Patient RASS -3/-4. PARAEDUCATOR aware. Patient shows signs of agitation and [...] RCP - 10/04/2019 5:07 AM EDT 10/04/19 0509 Spontaneous Breathing Trial (SBT) RT Doc Contraindications [...] patient did indeed make a request to [employer] restricting future information releases. Spoke with social service on-call, she will review the chart and get back with the care team with anything of note. Jame Bocanegra - Radiation Engineer documented in this encounter Assessments Diagnosis Infection [...] Hospital Course * Yamilka Yeboah, DAGOBERTO - SECRETARY TO THE VICE PRESIDENT - 02/03/2020 12:05 PM EDT Discharge Summary [...] recently admitted DC from [facility] after tx for septic arthritis. She underwent arthrotomy/poly exchange and wasdischarged to SNF[facility] w/IV ATB back in November. In the [...] DISCHARGE MEDICATIONS: Charlie Nguyen Home Medication Instructions LULU:[id number] Printed on:02/03/20 0825 Medication Information apixaban (ELIQUIS) 5 MG TABS [...] Complexity: follow up within 7-14 calendar days (73927) [x] Severe Complexity: follow up within 7 calendar days (84429) FOLLOW UP TESTING, PENDING RESULTS OR REFERRALS AT TRANSITIONAL CARE VISIT: [x] Yes [] No PENDING STUDIES: No DISPOSITION: SNF FACILITY/HOME CARE AGENCY NAME: [facility] Follow up with Moreno Oates INSTRUCTIONS TO [...] over cough, mental status improved. Transferred to [facility] Consults: Neurology, Critical care and Psychiatry Discharge Instructions: Follow social distancing to prevent COVID 19 disease spread, wash hands frequently with either soap and water (preferred) or hand social work manager for atleast 20 seconds Diet: DIET GENERAL; [...] Discharge Medications: Charlie Nguyen Home Medication Instructions LULU:[id number] Printed on:10/25/19 1417 Medication Information Acetaminophen-Aspirin Buffered (EXCEDRIN BACK & BODY) 250-250 MG TABS Take 2 tablets by mouth every 6 hours as needed amoxicillin-clavulanate (AUGMENTIN) 875-125 MG per tablet Take 1 tablet by mouth every 12 hours for 2 days Blood Pressure Monitoring (B-D ASSURE BPM/AUTO ARM CUFF) [facility] Use as directed to monitor BP metoprolol [...] as soon as possible for a visit [facility] [phone] Complexity of Follow up: [] Moderate Complexity: follow up within 7-14 calendar days (86058) [x] Severe Complexity: follow up within 7 calendar days (77346) Follow up Testing, Pending results or Referrals [...] PM This report was created using the [employer] voice- activated system. Despiteprompt dictation and careful [...] Internal derangement of right knee M23.91 Glioma ([facility]) C71.9 Hypertension I10 Chronic nonintractable headache R51 Intentional drug overdose ([facility]) T50.902A Drug overdose, multiple drugs, accidental or unintentional, initial encounter T50.911A Acute respiratory failure with hypoxia ([facility]) J96.01 Unspecified mood (affective) disorder ([facility]) F39 Procedures: CVC, Intubation, CXR, Ct Cervical [...] capacity to make any decisions about her alexandra care at this time. If treated she [...] by both psychiatry and internal medicine at [place] in the [facility] unit under Dr. Solis on [...] Discharge Medications: Charlie Nguyen Home Medication Instructions LULU:[id number] Printed on:10/18/19 0051 Medication Information Acetaminophen-Aspirin Buffered (EXCEDRIN BACK & BODY) 250-250 MG TABS Take 2 tablets by mouth every 6 hours as needed Blood Pressure Monitoring (B-D ASSURE BPM/AUTO ARM CUFF) [facility] Use as directed to monitor BP metoprolol [...] Complexity: follow up within 7-14 calendar days (80958) [x] Severe Complexity: follow up within 7 calendar days (10095) Follow up Testing, Pending results or Referrals [...] frame. Signed: Scott Corona MD [facility] 10/18/2019, 4:43 PM Time Spent on discharge exceeded 35 minutes discussing plan of care and discharge medications with patient and nursing staff documented in this encounter Discharge Instructions * Pharmacy* Fadumo Hernandez [facility] - 01/30/2020 9:19 AM EDT * Discharge [...] most local grocery stores, pharmacies, and chain Repairy-stores. ? If you have any questions about [...] Agent's Name Healthcare Agent's Phone Number 01/27/20 9022 No, patient does not have an advance directive for healthcare treatment -- -- -- -- -- Admitting Physician: Tian Haro MD PCP: Moreno Oates Discharging Nurse: Delisa Guaman RN Discharging Hospital Unit/Room#: 255/2551 Discharging Unit Emergency Contact: Extended Emergency Contact Information Primary Emergency Contact: Vicente Driscoll [facility] Mobile Relation: Child Past Surgical History: [...] Chronic nonintractable headache R51 Intentional drug overdose ([facility]) T50.902A Drug overdose, multiple drugs, accidental or unintentional, initial encounter T50.911A Acute respiratory failure with hypoxia ([facility]) J96.01 Unspecified mood (affective) disorder ([facility]) F39 Palliative care encounter Z51.5 Aspiration pneumonia ([facility]) J69.0 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[facility]) T84.53XA Generalized weakness R53.1 Benzodiazepine dependence ([facility]) F13.20 Isolation/Infection: Isolation No Isolation Patient Infection [...] Dependent Dressing Dependent Toileting Dependent Feeding Dependent Screed Person Dependent Med Delivery whole Wound Care Documentation [...] Assessment Red 02/01/20 0832 Culture Taken No 01/31/202234 Number of days: [...] sent with patient): None RN SIGNATURE: BPatch LOCOMOTIVE REPAIRER DIESEL/SOCIAL WORK SECTION Inpatient Status Date: 01/30/2020 Readmission Risk Assessment Score: Readmission Risk Risk of Unplanned Readmission: 33 Discharging to Facility/ Agency Name: [facility] Address:[address] [place] [address] Dialysis Facility (if applicable) Name: Address: Dialysis Schedule: Phone: Fax: Checkering Machine Operator/Executive Assistant To President signature: PHYSICIAN SECTION Prognosis: Good Condition at Discharge: Stable Rehab Potential (if transferring to Rehab): Good Recommended Labs or Other Treatments After Discharge: N/A Physician Certification: I certify the above information and transfer of Charlie Nguyen is necessaryfor the continuing treatment of the diagnosis listed and that she requires Retirement Facilityfor greater 30 days. Update Admission H&P: No change in H&P PHYSICIAN SIGNATURE: * Attachments The following attachments cannot be sent through Care Everywhere. * Knee Pain or Injury (Martiniquais) documented in this encounter* Pharmacy* Fadumo Hernandez RPH - 10/04/2019 9:13 AM EDT * Discharge Instr - CLYDE* Gina Mendoza MD - 10/03/2019 4:12 PM EDT Continuity of Care Form Patient Name: Charlie Nguyen : 1955 Admit date: 10/03/2019 Discharge date: Code Status Order: Full Code Advance Directives: Admitting Physician: Rajendra Kim MD PCP: Moreno Oates Discharging Nurse: Discharging Hospital Unit/Room#: 973/9704 Discharging Unit Phone Number: Emergency Contact: Extended Emergency Contact Information Primary Emergency Contact: Vicente Driscoll [facility] Relation: Child Past Surgical History: Past [...] (117.9 kg) Mental Status: {IP PT MENTAL STATUS:86126} IV Access: {[facility] IV ACCESS:[id number]} Nursing Mobility/ADLs: Walking Dependent Transfer Dependent Bathing Dependent Dressing Dependent Toileting Dependent Feeding Dependent Screed Person Dependent Med Delivery whole Wound Care Documentation [...] Dental Soft Routes of Feeding: Oral Liquids: {Optical Goods Drill Operator liquid thickness:58143} Daily Fluid Restriction: no Last Modified Barium Swallow with Video (Video Swallowing Test): not done Treatments at the Time of Hospital Discharge: Respiratory Treatments: Oxygen Therapy: 4 LITERS NC Ventilator: - No ventilator support Rehab Therapies: {THERAPEUTIC INTERVENTION:1777053161} Weight Bearing Status/Restrictions: No weight bearing restirctions Other Medical Equipment (for information only, NOT a DME order): {EQUIPMENT:427574411} Other Treatments: Patient's personal belongings (please select all that are sent with patient): None, Dentures {DESC; UPPER/LOWER/BOTH:42517} RN SIGNATURE: CASE MANAGEMENT/SOCIAL WORK SECTION Inpatient Status Date: Readmission Risk Assessment Score: Readmission Risk Risk of Unplanned Readmission: 14 Discharging to Facility/ Agency Name: [facility] Address: [address] [place] [address] ( Zafar Ambrose) Dialysis Facility (if applicable) Name: Address: Dialysis Schedule: Phone: Fax: Checkering 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 Go to [email or web address] and sign in to your [employer] account. Enter B109 in the Search Health Information box to learn more about Use of Multiple Drugs: Care Instructions. If you do not have an account, please click on the Sign Up Now link. Current as of: January 19, 2019Content Version: 12.4 [id number] [employer]. Care instructions adapted under license by [employer]. If you have questions about a medical condition or this instruction, always ask your healthcare professional. [employer] disclaims any warranty or liability for your use of this information. documented in this encounter Chief Complaint and Reason for Visit Chief Complaint SENIOR LIVING LABWORK SENIOR LIVING LABWORK SENIOR LIVING LABWORK SENIOR LIVING LABWORK SENIOR LIVING BLOOD WORK SENIOR LIVING BLOOD WORK SENIOR LIVING BLOOD WORK SENIOR LIVING BLOOD WORK SENIOR LIVING BLOOD WORK SENIOR LIVING LAB WORK SENIOR LIVING LAB WORK Chief Complaint SENIOR LIVING LABWORK SENIOR LIVING LABWORK SENIOR LIVING LABWORK SENIOR LIVING BLOOD WORK SENIOR LIVING BLOOD WORK SENIOR LIVING BLOOD WORK SENIOR LIVING BLOOD WORK SENIOR LIVING BLOOD WORK SENIOR LIVING LAB WORK SENIOR LIVING LAB WORK Chief Complaint SENIOR LIVING BLOOD W ORK SENIOR LIVING BLOOD WORK SENIOR LIVING BLOOD WORK SENIOR LIVING BLOOD WORK SENIOR LIVING LAB WORK SENIOR LIVING LAB WORK LABWORK Chief Complaint SENIOR LIVING LAB WOR K SENIOR LIVING LAB WORK LABWORK SENIOR LIVING LABWORK LABWORK Chief Complaint SENIOR LIVING LAB WOR K LABWORK SENIOR LIVING LABWORK LABWORK LABWORK LABWORK Chief Complaint LABWORK SENIOR LIVING LABWORK LABWORK LABWORK LABWORK SENIOR LIVING LABWORK Chief Complaint LABWORK LABWORK SENIOR LIVING LABWORK LABWORK Chief Complaint LABWORK SENIOR LIVING LABWORK SENIOR LIVING LAB WORK SENIOR LIVING LABWORK SENIOR LIVING LAB WORK SENIOR LIVING LAB WOKR Chief Complaint SENIOR LIVING LABWORK SENIOR LIVING LAB WORK SENIOR LIVING LABWORK SENIOR LIVING LAB WORK SENIOR LIVING LAB WOKR SENIOR LIVING LAB WORK Chief Complaint SENIOR LIVING LABWORK SENIOR LIVING LAB WORK SENIOR LIVING LABWORK SENIOR LIVING LAB WORK SENIOR LIVING LAB WOKR SENIOR LIVING LAB WORK SENIOR LIVING LAB WORK Chief Complaint SENIOR LIVING LAB WOR K SENIOR LIVING LAB WOKR SENIOR LIVING LAB WORK SENIOR LIVING LAB WORK SENIOR LIVING LABWORK SENIOR LIVING LAB WORK Chief Complaint SENIOR LIVING LAB WOR K SENIOR LIVING LAB WOKR SENIOR LIVING LAB WORK SENIOR LIVING LAB WORK SENIOR LIVING LABWORK LABWORK SENIOR LIVING LAB WORK Chief Complaint SENIOR LIVING LAB WOK R SENIOR LIVING LAB WORK SENIOR LIVING LAB WORK SENIOR LIVING LABWORK LABWORK SENIOR LIVING LAB WORK SENIOR LIVING LABWORK Chief Complaint SENIOR LIVING LAB WOR K SENIOR LIVING LAB WORK SENIOR LIVING LABWORK LABWORK SENIOR LIVING LAB WORK SENIOR LIVING LABWORK LABWORK Chief Complaint LABWORK SENIOR LIVING LAB WORK SENIOR LIVING LABWORK LABWORK SENIOR LIVING LABWORK SENIOR LIVING LABWORK Chief Complaint SENIOR LIVING LABWORK LABWORK SENIOR LIVING LABWORK SENIOR LIVING LABWORK SENIOR LIVING LAB WORK SENIOR LIVING LAB WORK Chief Complaint SENIOR LIVING LABWORK SENIOR LIVING LAB WORK SENIOR LIVING LAB WORK SENIOR LIVING LABWORK SENIOR LIVING LABWORK Chief Complaint SENIOR LIVING LABWORK SENIOR LIVING LAB WORK SENIOR LIVING LAB WORK SENIOR LIVING LABWORK SENIOR LIVING LABWORK SENIOR LIVING LABWORK Chief Complaint SENIOR LIVING LAB WOR K SENIOR LIVING LAB WORK SENIOR LIVING LABWORK SENIOR LIVING LABWORK SENIOR LIVING LABWORK LABWORK SENIOR LIVING LABWORK Chief Complaint SENIOR LIVING LABWORK SENIOR LIVING LABWORK SENIOR LIVING LABWORK LABWORK SENIOR LIVING LABWORK LABWORK Chief Complaint LABWORK SENIOR LIVING LABWORK LABWORK LABWORK LABWORK Chief Complaint LABWORK LABWORK LABWORK LABWORK Chief Complaint Admit Date LABWORK May 11, 2024 5:00am LABWORK July 04, 2024 5 :00am SENIOR LIVING LAB WORK July 12 5:00am LABWORK August 10, 2024 5:0 0am Reason for Referral Specialty Diagnoses / Procedures Referred By Contac t Referred To Contact CT IMAGING Diagnoses Pain due to internal orthopedic prosthetic devices, implants and grafts, initial encounter (HCC) Procedures CT KNEE WO IVCON LT CT LOWER EXTREMITY W/O CONTRAST MATERIAL Debbie Batista PA-C [address] [place] [address] Ct Imaging Referral ID Status Reason Start Date Expiration Date V isits Requested Visits Authorized [id number] Closed Auto-Generate d Referral 06/09/2022 05/31/2023 1 1 Additional Source Comments INFORMATION SOURCE (unrecogn ized section and content) DATE CREATED AUTHOR 11/06/2018 [facility] chinedu Jenkins DATE CREATED AUTHOR AUTHOR'S ORGANIZ ATION 12/22/2019 [facility] DATE CREATED AUTHOR AUTHOR'S ORGANIZ ATION 01/12/2021 [facility] DATE CREATED AUTHOR AUTHOR'S ORGANIZ ATION 03/01/2021 [facility] DATE CREATED AUTHOR AUTHOR'S ORGANIZ ATION 03/24/2022 [facility] DATE CREATED AUTHOR AUTHOR'S ORGANIZ ATION 06/16/2022 [facility] DATE CREATED AUTHOR AUTHOR'S ORGANIZ ATION 01/23/2023 [facility] DATE CREATED AUTHOR AUTHOR'S ORGANIZ ATION 10/26/2024 [facility] DATE CREATED AUTHOR AUTHOR'S ORGANIZ ATION 03/18/2025 [facility] DATE CREATED AUTHOR AUTHOR'S ORGANIZ ATION 03/31/2025 [facility] Reason for Visit (unrecogniz ed section and content) Reason Comments Joint Swelling Pt was sent in from [facility] for ortho consult to rule out [...] pharmacy Reason Comments Outside Lab Results from [facility] Reason Comments Orders request for sign [...] Refill Request Reason Comments Outside Lab Results [facility] Reason Comments Orders Controlled medicatio n request from [facility] Reason Comments Orders Pharmacy Recommendat ion [facility] Reason Comments Orders prescription request Reason Comments Orders Medication [facility] [place] Reason Comments Refill Request [facility] Reason Comments Orders [facility] Reason Comments Refill Request Future fill from the pharmacy Reason Comments Orders [facility] [place] Reason Comments Diagnositic mammogram and US orders Reason Onset Date Comments Opened In Error 03/18/2022 Reason Comments Orders Mammogram orders [facility] Reason Comments medication orders [facility] Reason Comments Medication Request [facility] Oxycodone/apap Reason Comments Outside Labs Results [facility] Reason Comments Orders [facility] Reason Onset Date Comments Refill Request 06/25/2022 Reason Comments Patient Update [facility] 07/05/22 Reason Comments Outside Lab Results [facility] 07/14/22 Reason Onset Date Comments Refill Request 07/21/2022 Reason Comments Orders Reason Onset Date Comments Refill Request 07/29/2022 Reason Comments Received Outside Medical Records [facility] Developmental Disabilities Specialty Diagnoses / Procedures Referred By Contact Referred To Contact [facility] Diagnoses Follow up CT scan left knee Procedures est patient Debbie Batista PA-C [address] [place] [address] [facility] [address] [place] [address] Referral ID Status Reason Start Date Expiration Date Visits Requested Visits Authorized [id number] Pending Review OON/Self Pay Override 07/21/2022 01/17/2023 1 1 Reason Comments Medication Request [facility] Ox ycodone apap 5-325 mg 1 tab every 6 hours Reason Comments Medication Request [facility] Reason Comments Medication Request [facility] ([facility]) Reason Comments Clinical Symptoms Reason Comments Received Outside Medical Records [facility] ([facility]) Labs Reason Comments Received Outside Medical Records [facility] portable x-ray service ([facility]) Chest x-ray 11/04/2022 Reason Comments Leg [...] hours. Reason Comments Received Outside Medical Records [facility] Vascular Surgery 12/15/22 Reason Comments Nurse Triage Call Reason Comments Received Outside Medical Records [facility] ([facility]) Labs 12/30/2022 Reason Onset Date Comments Refill Request 01/01/2023 Reason Comments Received Outside Medical Records Lab res ults from [facility]/ [facility] Lab Reason Onset Date Comments Refill Request 01/13/2023 Reason Comments Received Outside Medical Records [facility] Lower extremity venous duplex 01/21/2023 Reason Comments Medication Request Reason Comments Received Outside Medical Records Lab res ults 02/09/23 [facility] Reason Comments Received Outside Medical Records [facility] ([facility]) Labs 04/06/2023 Reason Comments Received Outside Medical Records [facility] ([facility]) Labs 05/11/2023 Reason Onset Date Comments Refill Request 07/30/2023 Reason Onset Date Comments Refill Request 07/31/2023 Reason Comments Outside Labs Results [facility]/ [facility] Reason Comments Received Outside Medical Records [facility] Order to increase Zofran from 4 mg to 8 mg Q8 hr prn Reason Onset Date Comments Refill Request 09/25/2023 Reason Onset Date Comments Refill Request 10/07/2023 Reason Comments Outside Lab Results [facility] 10/12/23 Reason Onset Date Comments Refill Request 10/27/2023 Reason Comments Received Outside Medical Records [facility] Labs 11/09/2023 Reason Onset Date Comments Refill Request 12/30/2023 Reason Onset Date Comments Refill Request 01/27/2024 Reason Comments Radio Gen RMP Specialty Diagnoses / Procedures Referred By Andrea t Referred To Contact XR IMAGING Diagnoses Status post total left knee replacement Procedures XR KNEE POST OP 3V AP/LAT/MERCHANT LEFT RADIOLOGIC EXAMINATION KNEE 3 VIEWS eDbbie Batista PA-C [address] [place] [address] Xr Imaging [place] [address] Referral ID Status Reason Start Date Expiration Date V isits Requested Visits Authorized [id number] Closed Auto-Generated Referral Financial Clearance Not Required 05/21/2022 06/20/2023 1 1 Reason Onset Date Comments Refill Request 02/26/2024 Reason Onset Date Comments Opened In Error 02/29/2024 [facility] Reason Onset Date Comments Refill Request 03/24/2024 Reason Onset Date Comments Refill Request 03/25/2024 Reason Onset Date Comments Refill Request 03/31/2024 Reason Comments Received Outside Medical Records [facility] Labs 04/11/2024 Reason Onset Date Comments Refill Request 04/22/2024 Reason Onset Date Comments Refill Request 04/21/2024 Reason Onset Date Comments Refill Request 05/23/2024 Reason Onset Date Comments Refill Request 06/23/2024 Reason Comments Received Outside Medical Records [facility] ([facility]) Labs 07/12/2024 Reason Onset Date Comments Refill Request 07/22/2024 Reason Onset Date Comments Refill Request 08/18/2024 Reason Onset Date Comments Refill Request 09/16/2024 Reason Onset Date Comments Refill Request 10/14/2024 Reason Onset Date Comments Refill Request 11/10/2024 Reason Onset Date Comments Refill Request 11/18/2024 Reason Comments Headache Reason Onset Date Comments Refill Request 12/15/2024 Reason Comments Received Outside Medical Records [facility] Reason Comments Outside Lab Results [facility] Reason Onset Date Comments Refill Request 01/13/2025 Reason Comments Medication Request Rescue inhaler Reason Onset Date Comments Refill Request 02/09/2025 Scheduled Active and Recently Administ ered Medications (unrecognized section and content) Medication Order 12/17/2020 12/18/2020 12/19/2020 clindamycin (CLEOCIN) 600 mg in dextrose 5 % 50 mL IVPB (COMPLETED) 600 mg, Intravenous, ONCE, 1 dose, On Thu12/18/20 at 2246 2318 (New Bag - Provider: Nathaly Miller RN)2348 (Stopped - Provider: Serenity Coyne RN) oxyCODONE-acetaminophen [...] 8 HOURS, First dose on Thu12/18/20 at 2051, Flush line with 3-5 mL 2050 (Due) [...] open or using other rapid infusion mechanism. 1939 (New Bag - Provider: Chantal Walton RN)2239 [...] mg from all sources in 24 hours. 2247 (Not Given - Provider: Delmy Lawson RN - Reason: Other - Comment: Not to be given per Dr. Hudson.) piperacillin-tazobactam (ZOSYN) 4500 mg in dextrose 100 mL IVPB (premix) (COMPLETED) 4,500 mg, Intravenous, ONCE, 1 dose, On 01/05/21 at 1915 1932 (New Bag - Provider: Chantal Walton RN)2240 (Stopped - Provider: Delmy Lawson RN) sodium [...] mL/hr, Administer over 30 Minutes, ONCE, On 01/15/21 at 1215, For 1 dose 1326 (New [...] or prosecute any alcohol or drug abuse patient.[facility]In the event this information is protected by the Federal Confidentiality of Alcohol and Drug Abuse Patient Records regulations: The Federal rules restrict any use of the information to criminally investigate or prosecute any alcohol or drug abuse patient.[facility] AndersonIn the event this information is protected by the Federal Confidentiality of Alcohol and Drug Abuse Patient Records regulations: The Federal rules restrict any use of the information to criminally investigate or prosecute any alcohol or drug abuse patient.[facility] AndersonIn the event this information is protected by the Federal Confidentiality of Alcohol and Drug Abuse Patient Records regulations: The Federal rules restrict any use of the information to criminally investigate or prosecute any alcohol or drug abuse patient.[facility] AndersonIn the event this information is protected by the Federal Confidentiality of Alcohol and Drug Abuse Patient Records regulations: The Federal rules restrict any use of the information to criminally investigate or prosecute any alcohol or drug abuse patient.[facility] AndersonIn the event this information is protected by the Federal Confidentiality of Alcohol and Drug Abuse Patient Records regulations: The Federal rules restrict any use of the information to criminally investigate or prosecute any alcohol or drug abuse patient.[facility] AndersonIn the event this information is protected by the Federal Confidentiality of Alcohol and Drug Abuse Patient Records regulations: The Federal rules restrict any use of the information to criminally investigate or prosecute any alcohol or drug abuse patient.[facility] AndersonIn the event this information is protected by the Federal Confidentiality of Alcohol and Drug Abuse Patient Records regulations: The Federal rules restrict any use of the information to criminally investigate or prosecute any alcohol or drug abuse patient.[facility] AndersonIn the event this information is protected by the Federal Confidentiality of Alcohol and Drug Abuse Patient Records regulations: The Federal rules restrict any use of the information to criminally investigate or prosecute any alcohol or drug abuse patient.[facility] AndersonIn the event this information is protected by the Federal Confidentiality of Alcohol and Drug Abuse Patient Records regulations: The Federal rules restrict any use of the information to criminally investigate or prosecute any alcohol or drug abuse patient.[facility] AndersonIn the event this information is protected by the Federal Confidentiality of Alcohol and Drug Abuse Patient Records regulations: The Federal rules restrict any use of the information to criminally investigate or prosecute any alcohol or drug abuse patient.[facility] AndersonIn the event this information is protected by the Federal Confidentiality of Alcohol and Drug Abuse Patient Records regulations: The Federal rules restrict any use of the information to criminally investigate or prosecute any alcohol or drug abuse patient.[facility] AndersonIn the event this information is protected by [...] or prosecute any alcohol or drug abuse patient.[facility] AndersonIn the event this information is protected by the Federal Confidentiality of Alcohol and Drug Abuse Patient Records regulations: The Federal rules restrict any use of the information to criminally investigate or prosecute any alcohol or drug abuse patient.[facility] AndersonIn the event this information is protected by the Federal Confidentiality of Alcohol and Drug Abuse Patient Records regulations: The Federal rules restrict any use of the information to criminally investigate or prosecute any alcohol or drug abuse patient.[facility] AndersonIn the event this information is protected by the Federal Confidentiality of Alcohol and Drug Abuse Patient Records regulations: The Federal rules restrict any use of the information to criminally investigate or prosecute any alcohol or drug abuse patient.[facility] AndersonIn the event this information is protected by the Federal Confidentiality of Alcohol and Drug Abuse Patient Records regulations: The Federal rules restrict any use of the information to criminally investigate or prosecute any alcohol or drug abuse patient.[facility] AndersonIn the event this information is protected by the Federal Confidentiality of Alcohol and Drug Abuse Patient Records regulations: The Federal rules restrict any use of the information to criminally investigate or prosecute any alcohol or drug abuse patient.[facility] AndersonIn the event this information is protected by the Federal Confidentiality of Alcohol and Drug Abuse Patient Records regulations: The Federal rules restrict any use of the information to criminally investigate or prosecute any alcohol or drug abuse patient.[facility] AndersonIn the event this information is protected by the Federal Confidentiality of Alcohol and Drug Abuse Patient Records regulations: The Federal rules restrict any use of the information to criminally investigate or prosecute any alcohol or drug abuse patient.[facility] AndersonIn the event this information is protected by the Federal Confidentiality of Alcohol and Drug Abuse Patient Records regulations: The Federal rules restrict any use of the information to criminally investigate or prosecute any alcohol or drug abuse patient.[facility] AndersonIn the event this information is protected by the Federal Confidentiality of Alcohol and Drug Abuse Patient Records regulations: The Federal rules restrict any use of the information to criminally investigate or prosecute any alcohol or drug abuse patient.[facility] AndersonIn the event this information is protected by the Federal Confidentiality of Alcohol and Drug Abuse Patient Records regulations: The Federal rules restrict any use of the information to criminally investigate or prosecute any alcohol or drug abuse patient.[facility] AndersonIn the event this information is protected by the Federal Confidentiality of Alcohol and Drug Abuse Patient Records regulations: The Federal rules restrict any use of the information to criminally investigate or prosecute any alcohol or drug abuse patient.[facility] AndersonIn the event this information is protected by the Federal Confidentiality of Alcohol and Drug Abuse Patient Records regulations: The Federal rules restrict any use of the information to criminally investigate or prosecute any alcohol or drug abuse patient.[facility] AndersonIn the event this information is protected by the Federal Confidentiality of Alcohol and Drug Abuse Patient Records regulations: The Federal rules restrict any use of the information to criminally investigate or prosecute any alcohol or drug abuse patient.[facility] AndersonIn the event this information is protected by the Federal Confidentiality of Alcohol and Drug Abuse Patient Records regulations: The Federal rules restrict any use of the information to criminally investigate or prosecute any alcohol or drug abuse patient.[facility] AndersonIn the event this information is protected by the Federal Confidentiality of Alcohol and Drug Abuse Patient Records regulations: The Federal rules restrict any use of the information to criminally investigate or prosecute any alcohol or drug abuse patient.[facility] AndersonIn the event this information is protected by the Federal Confidentiality of Alcohol and Drug Abuse Patient Records regulations: The Federal rules restrict any use of the information to criminally investigate or prosecute any alcohol or drug abuse patient.[facility] AndersonIn the event this information is protected by the Federal Confidentiality of Alcohol and Drug Abuse Patient Records regulations: The Federal rules restrict any use of the information to criminally investigate or prosecute any alcohol or drug abuse patient.[facility] AndersonIn the event this information is protected by the Federal Confidentiality of Alcohol and Drug Abuse Patient Records regulations: The Federal rules restrict any use of the information to criminally investigate or prosecute any alcohol or drug abuse patient.[facility] AndersonIn the event this information is protected by the Federal Confidentiality of Alcohol and Drug Abuse Patient Records regulations: The Federal rules restrict any use of the information to criminally investigate or prosecute any alcohol or drug abuse patient.[facility] AndersonIn the event this information is protected by the Federal Confidentiality of Alcohol and Drug Abuse Patient Records regulations: The Federal rules restrict any use of the information to criminally investigate or prosecute any alcohol or drug abuse patient.[facility] AndersonIn the event this information is protected by the Federal Confidentiality of Alcohol and Drug Abuse Patient Records regulations: The Federal rules restrict any use of the information to criminally investigate or prosecute any alcohol or drug abuse patient.[facility] AndersonIn the event this information is protected by the Federal Confidentiality of Alcohol and Drug Abuse Patient Records regulations: The Federal rules restrict any use of the information to criminally investigate or prosecute any alcohol or drug abuse patient.[facility] AndersonIn the event this information is protected by the Federal Confidentiality of Alcohol and Drug Abuse Patient Records regulations: The Federal rules restrict any use of the information to criminally investigate or prosecute any alcohol or drug abuse patient.[facility] AndersonIn the event this information is protected by the Federal Confidentiality of Alcohol and Drug Abuse Patient Records regulations: The Federal rules restrict any use of the information to criminally investigate or prosecute any alcohol or drug abuse patient.[facility] AndersonIn the event this information is protected by the Federal Confidentiality of Alcohol and Drug Abuse Patient Records regulations: The Federal rules restrict any use of the information to criminally investigate or prosecute any alcohol or drug abuse patient.[facility] AndersonIn the event this information is protected by the Federal Confidentiality of Alcohol and Drug Abuse Patient Records regulations: The Federal rules restrict any use of the information to criminally investigate or prosecute any alcohol or drug abuse patient.[facility] AndersonIn the event this information is protected by the Federal Confidentiality of Alcohol and Drug Abuse Patient Records regulations: The Federal rules restrict any use of the information to criminally investigate or prosecute any alcohol or drug abuse patient.[facility] AndersonIn the event this information is protected by the Federal Confidentiality of Alcohol and Drug Abuse Patient Records regulations: The Federal rules restrict any use of the information to criminally investigate or prosecute any alcohol or drug abuse patient.[facility] AndersonIn the event this information is protected by the Federal Confidentiality of Alcohol and Drug Abuse Patient Records regulations: The Federal rules restrict any use of the information to criminally investigate or prosecute any alcohol or drug abuse patient.[facility] AndersonIn the event this information is protected by the Federal Confidentiality of Alcohol and Drug Abuse Patient Records regulations: The Federal rules restrict any use of the information to criminally investigate or prosecute any alcohol or drug abuse patient.[facility] AndersonIn the event this information is protected by the Federal Confidentiality of Alcohol and Drug Abuse Patient Records regulations: The Federal rules restrict any use of the information to criminally investigate or prosecute any alcohol or drug abuse patient.[facility] AndersonIn the event this information is protected by the Federal Confidentiality of Alcohol and Drug Abuse Patient Records regulations: The Federal rules restrict any use of the information to criminally investigate or prosecute any alcohol or drug abuse patient.[facility] AndersonIn the event this information is protected by the Federal Confidentiality of Alcohol and Drug Abuse Patient Records regulations: The Federal rules restrict any use of the information to criminally investigate or prosecute any alcohol or drug abuse patient.[facility] AndersonIn the event this information is protected by the Federal Confidentiality of Alcohol and Drug Abuse Patient Records regulations: The Federal rules restrict any use of the information to criminally investigate or prosecute any alcohol or drug abuse patient.[facility] AndersonIn the event this information is protected by the Federal Confidentiality of Alcohol and Drug Abuse Patient Records regulations: The Federal rules restrict any use of the information to criminally investigate or prosecute any alcohol or drug abuse patient.[facility] AndersonIn the event this information is protected by the Federal Confidentiality of Alcohol and Drug Abuse Patient Records regulations: The Federal rules restrict any use of the information to criminally investigate or prosecute any alcohol or drug abuse patient.[facility] AndersonIn the event this information is protected by the Federal Confidentiality of Alcohol and Drug Abuse Patient Records regulations: The Federal rules restrict any use of the information to criminally investigate or prosecute any alcohol or drug abuse patient.[facility] AndersonIn the event this information is protected by the Federal Confidentiality of Alcohol and Drug Abuse Patient Records regulations: The Federal rules restrict any use of the information to criminally investigate or prosecute any alcohol or drug abuse patient.[facility] AndersonIn the event this information is protected by the Federal Confidentiality of Alcohol and Drug Abuse Patient Records regulations: The Federal rules restrict any use of the information to criminally investigate or prosecute any alcohol or drug abuse patient.[facility] AndersonIn the event this information is protected by the Federal Confidentiality of Alcohol and Drug Abuse Patient Records regulations: The Federal rules restrict any use of the information to criminally investigate or prosecute any alcohol or drug abuse patient.[facility] AndersonIn the event this information is protected by the Federal Confidentiality of Alcohol and Drug Abuse Patient Records regulations: The Federal rules restrict any use of the information to criminally investigate or prosecute any alcohol or drug abuse patient.[facility] AndersonIn the event this information is protected by the Federal Confidentiality of Alcohol and Drug Abuse Patient Records regulations: The Federal rules restrict any use of the information to criminally investigate or prosecute any alcohol or drug abuse patient.[facility] AndersonIn the event this information is protected by the Federal Confidentiality of Alcohol and Drug Abuse Patient Records regulations: The Federal rules restrict any use of the information to criminally investigate or prosecute any alcohol or drug abuse patient.[facility] AndersonIn the event this information is protected by the Federal Confidentiality of Alcohol and Drug Abuse Patient Records regulations: The Federal rules restrict any use of the information to criminally investigate or prosecute any alcohol or drug abuse patient.[facility] AndersonIn the event this information is protected by the Federal Confidentiality of Alcohol and Drug Abuse Patient Records regulations: The Federal rules restrict any use of the information to criminally investigate or prosecute any alcohol or drug abuse patient.[facility] AndersonIn the event this information is protected by the Federal Confidentiality of Alcohol and Drug Abuse Patient Records regulations: The Federal rules restrict any use of the information to criminally investigate or prosecute any alcohol or drug abuse patient.[facility] AndersonIn the event this information is protected by the Federal Confidentiality of Alcohol and Drug Abuse Patient Records regulations: The Federal rules restrict any use of the information to criminally investigate or prosecute any alcohol or drug abuse patient.[facility] AndersonIn the event this information is protected by the Federal Confidentiality of Alcohol and Drug Abuse Patient Records regulations: The Federal rules restrict any use of the information to criminally investigate or prosecute any alcohol or drug abuse patient.[facility] AndersonIn the event this information is protected by [...] or prosecute any alcohol or drug abuse patient.[facility] AndersonIn the event this information is protected by the Federal Confidentiality of Alcohol and Drug Abuse Patient Records regulations: The Federal rules restrict any use of the information to criminally investigate or prosecute any alcohol or drug abuse patient.[facility] AndersonIn the event this information is protected by the Federal Confidentiality of Alcohol and Drug Abuse Patient Records regulations: The Federal rules restrict any use of the information to criminally investigate or prosecute any alcohol or drug abuse patient.[facility] AndersonIn the event this information is protected by the Federal Confidentiality of Alcohol and Drug Abuse Patient Records regulations: The Federal rules restrict any use of the information to criminally investigate or prosecute any alcohol or drug abuse patient.[facility] AndersonIn the event this information is protected by the Federal Confidentiality of Alcohol and Drug Abuse Patient Records regulations: The Federal rules restrict any use of the information to criminally investigate or prosecute any alcohol or drug abuse patient.[facility] AndersonIn the event this information is protected by the Federal Confidentiality of Alcohol and Drug Abuse Patient Records regulations: The Federal rules restrict any use of the information to criminally investigate or prosecute any alcohol or drug abuse patient.[facility] AndersonIn the event this information is protected by the Federal Confidentiality of Alcohol and Drug Abuse Patient Records regulations: The Federal rules restrict any use of the information to criminally investigate or prosecute any alcohol or drug abuse patient.[facility] AndersonIn the event this information is protected by the Federal Confidentiality of Alcohol and Drug Abuse Patient Records regulations: The Federal rules restrict any use of the information to criminally investigate or prosecute any alcohol or drug abuse patient.[facility] AndersonIn the event this information is protected by the Federal Confidentiality of Alcohol and Drug Abuse Patient Records regulations: The Federal rules restrict any use of the information to criminally investigate or prosecute any alcohol or drug abuse patient.[facility] AndersonIn the event this information is protected by the Federal Confidentiality of Alcohol and Drug Abuse Patient Records regulations: The Federal rules restrict any use of the information to criminally investigate or prosecute any alcohol or drug abuse patient.[facility] AndersonIn the event this information is protected by the Federal Confidentiality of Alcohol and Drug Abuse Patient Records regulations: The Federal rules restrict any use of the information to criminally investigate or prosecute any alcohol or drug abuse patient.[facility] AndersonIn the event this information is protected by the Federal Confidentiality of Alcohol and Drug Abuse Patient Records regulations: The Federal rules restrict any use of the information to criminally investigate or prosecute any alcohol or drug abuse patient.[facility] AndersonIn the event this information is protected by the Federal Confidentiality of Alcohol and Drug Abuse Patient Records regulations: The Federal rules restrict any use of the information to criminally investigate or prosecute any alcohol or drug abuse patient.[facility] AndersonIn the event this information is protected by the Federal Confidentiality of Alcohol and Drug Abuse Patient Records regulations: The Federal rules restrict any use of the information to criminally investigate or prosecute any alcohol or drug abuse patient.[facility] AndersonIn the event this information is protected by the Federal Confidentiality of Alcohol and Drug Abuse Patient Records regulations: The Federal rules restrict any use of the information to criminally investigate or prosecute any alcohol or drug abuse patient.[facility] AndersonIn the event this information is protected by the Federal Confidentiality of Alcohol and Drug Abuse Patient Records regulations: The Federal rules restrict any use of the information to criminally investigate or prosecute any alcohol or drug abuse patient.[facility] AndersonIn the event this information is protected by the Federal Confidentiality of Alcohol and Drug Abuse Patient Records regulations: The Federal rules restrict any use of the information to criminally investigate or prosecute any alcohol or drug abuse patient.[facility] AndersonIn the event this information is protected by the Federal Confidentiality of Alcohol and Drug Abuse Patient Records regulations: The Federal rules restrict any use of the information to criminally investigate or prosecute any alcohol or drug abuse patient.[facility] AndersonIn the event this information is protected by the Federal Confidentiality of Alcohol and Drug Abuse Patient Records regulations: The Federal rules restrict any use of the information to criminally investigate or prosecute any alcohol or drug abuse patient.[facility] AndersonIn the event this information is protected by the Federal Confidentiality of Alcohol and Drug Abuse Patient Records regulations: The Federal rules restrict any use of the information to criminally investigate or prosecute any alcohol or drug abuse patient.[facility] AndersonIn the event this information is protected by the Federal Confidentiality of Alcohol and Drug Abuse Patient Records regulations: The Federal rules restrict any use of the information to criminally investigate or prosecute any alcohol or drug abuse patient.[facility] AndersonIn the event this information is protected by the Federal Confidentiality of Alcohol and Drug Abuse Patient Records regulations: The Federal rules restrict any use of the information to criminally investigate or prosecute any alcohol or drug abuse patient.[facility] AndersonIn the event this information is protected by the Federal Confidentiality of Alcohol and Drug Abuse Patient Records regulations: The Federal rules restrict any use of the information to criminally investigate or prosecute any alcohol or drug abuse patient.[facility] AndersonIn the event this information is protected by the Federal Confidentiality of Alcohol and Drug Abuse Patient Records regulations: The Federal rules restrict any use of the information to criminally investigate or prosecute any alcohol or drug abuse patient.[facility] AndersonIn the event this information is protected by the Federal Confidentiality of Alcohol and Drug Abuse Patient Records regulations: The Federal rules restrict any use of the information to criminally investigate or prosecute any alcohol or drug abuse patient.[facility] AndersonIn the event this information is protected by the Federal Confidentiality of Alcohol and Drug Abuse Patient Records regulations: The Federal rules restrict any use of the information to criminally investigate or prosecute any alcohol or drug abuse patient.[facility] AndersonIn the event this information is protected by the Federal Confidentiality of Alcohol and Drug Abuse Patient Records regulations: The Federal rules restrict any use of the information to criminally investigate or prosecute any alcohol or drug abuse patient.[facility] AndersonIn the event this information is protected by the Federal Confidentiality of Alcohol and Drug Abuse Patient Records regulations: The Federal rules restrict any use of the information to criminally investigate or prosecute any alcohol or drug abuse patient.[facility] AndersonIn the event this information is protected by the Federal Confidentiality of Alcohol and Drug Abuse Patient Records regulations: The Federal rules restrict any use of the information to criminally investigate or prosecute any alcohol or drug abuse patient.[facility] AndersonIn the event this information is protected by the Federal Confidentiality of Alcohol and Drug Abuse Patient Records regulations: The Federal rules restrict any use of the information to criminally investigate or prosecute any alcohol or drug abuse patient.[facility] AndersonIn the event this information is protected by the Federal Confidentiality of Alcohol and Drug Abuse Patient Records regulations: The Federal rules restrict any use of the information to criminally investigate or prosecute any alcohol or drug abuse patient.[facility] AndersonIn the event this information is protected by the Federal Confidentiality of Alcohol and Drug Abuse Patient Records regulations: The Federal rules restrict any use of the information to criminally investigate or prosecute any alcohol or drug abuse patient.[facility] AndersonIn the event this information is protected by the Federal Confidentiality of Alcohol and Drug Abuse Patient Records regulations: The Federal rules restrict any use of the information to criminally investigate or prosecute any alcohol or drug abuse patient.[facility] AndersonIn the event this information is protected by the Federal Confidentiality of Alcohol and Drug Abuse Patient Records regulations: The Federal rules restrict any use of the information to criminally investigate or prosecute any alcohol or drug abuse patient.[facility] AndersonIn the event this information is protected by the Federal Confidentiality of Alcohol and Drug Abuse Patient Records regulations: The Federal rules restrict any use of the information to criminally investigate or prosecute any alcohol or drug abuse patient.[facility] AndersonIn the event this information is protected by the Federal Confidentiality of Alcohol and Drug Abuse Patient Records regulations: The Federal rules restrict any use of the information to criminally investigate or prosecute any alcohol or drug abuse patient.[facility] AndersonIn the event this information is protected by the Federal Confidentiality of Alcohol and Drug Abuse Patient Records regulations: The Federal rules restrict any use of the information to criminally investigate or prosecute any alcohol or drug abuse patient.[facility] AndersonIn the event this information is protected by the Federal Confidentiality of Alcohol and Drug Abuse Patient Records regulations: The Federal rules restrict any use of the information to criminally investigate or prosecute any alcohol or drug abuse patient.[facility] AndersonIn the event this information is protected by the Federal Confidentiality of Alcohol and Drug Abuse Patient Records regulations: The Federal rules restrict any use of the information to criminally investigate or prosecute any alcohol or drug abuse patient.[facility] AndersonIn the event this information is protected by the Federal Confidentiality of Alcohol and Drug Abuse Patient Records regulations: The Federal rules restrict any use of the information to criminally investigate or prosecute any alcohol or drug abuse patient.[facility] AndersonIn the event this information is protected by the Federal Confidentiality of Alcohol and Drug Abuse Patient Records regulations: The Federal rules restrict any use of the information to criminally investigate or prosecute any alcohol or drug abuse patient.[facility] AndersonIn the event this information is protected by the Federal Confidentiality of Alcohol and Drug Abuse Patient Records regulations: The Federal rules restrict any use of the information to criminally investigate or prosecute any alcohol or drug abuse patient.[facility] AndersonIn the event this information is protected by the Federal Confidentiality of Alcohol and Drug Abuse Patient Records regulations: The Federal rules restrict any use of the information to criminally investigate or prosecute any alcohol or drug abuse patient.[facility] AndersonIn the event this information is protected by the Federal Confidentiality of Alcohol and Drug Abuse Patient Records regulations: The Federal rules restrict any use of the information to criminally investigate or prosecute any alcohol or drug abuse patient.[facility] AndersonIn the event this information is protected by the Federal Confidentiality of Alcohol and Drug Abuse Patient Records regulations: The Federal rules restrict any use of the information to criminally investigate or prosecute any alcohol or drug abuse patient.[facility] AndersonIn the event this information is protected by the Federal Confidentiality of Alcohol and Drug Abuse Patient Records regulations: The Federal rules restrict any use of the information to criminally investigate or prosecute any alcohol or drug abuse patient.[facility] AndersonIn the event this information is protected by the Federal Confidentiality of Alcohol and Drug Abuse Patient Records regulations: The Federal rules restrict any use of the information to criminally investigate or prosecute any alcohol or drug abuse patient.[facility] AndersonIn the event this information is protected by the Federal Confidentiality of Alcohol and Drug Abuse Patient Records regulations: The Federal rules restrict any use of the information to criminally investigate or prosecute any alcohol or drug abuse patient.[facility] AndersonIn the event this information is protected by the Federal Confidentiality of Alcohol and Drug Abuse Patient Records regulations: The Federal rules restrict any use of the information to criminally investigate or prosecute any alcohol or drug abuse patient.[facility] AndersonIn the event this information is protected by [...] or prosecute any alcohol or drug abuse patient.[facility] AndersonIn the event this information is protected by the Federal Confidentiality of Alcohol and Drug Abuse Patient Records regulations: The Federal rules restrict any use of the information to criminally investigate or prosecute any alcohol or drug abuse patient.[facility] AndersonIn the event this information is protected by the Federal Confidentiality of Alcohol and Drug Abuse Patient Records regulations: The Federal rules restrict any use of the information to criminally investigate or prosecute any alcohol or drug abuse patient.[facility] AndersonIn the event this information is protected by the Federal Confidentiality of Alcohol and Drug Abuse Patient Records regulations: The Federal rules restrict any use of the information to criminally investigate or prosecute any alcohol or drug abuse patient.[facility] AndersonIn the event this information is protected by the Federal Confidentiality of Alcohol and Drug Abuse Patient Records regulations: The Federal rules restrict any use of the information to criminally investigate or prosecute any alcohol or drug abuse patient.[facility] Care Teams (unrecognized sec tion and content) Team Status: Inactive Member Role Status Dates Ender RICKS MD Attending Provider Active Team Status: Active Member Role Status Dates Ender RICKS MD Attending Provider Active Team Status: Inactive Member Role Status Dates Ender RICKS MD Attending Provider, Referring Stuart venegas Active Salon Coordinator Relationship Specialty Start Date End Date Moreno Oates MD [address] [place], [place] [id number] PCP - General Family Practice 02/13/16 Lamonte Weber [address] [place] [address] [id number] 11/17/06 Moreno Oates MD [address] [facility] [address] [place] [id number] Home Care Physician Family Practice 11/29/19 Moreno Oates MD [address] [facility] [address] [place] [id number] Referring Family Practice 11/29/19 Sanjana Tarango MD [address] [place] [address] Consulting Infectious Diseases 11/29/19 Salon Coordinator Relationship Specialty Start Date End Date Moreno Oates MD [address] [place] [address] PCP - General Family Practice 02/13/16 Lamonte Weber [address] [place] [id number] 11/17/06 Moreno Oates MD [address] [facility] [place] [address] Home Care Physician Family Practice 11/29/19 Moreno Oates MD [address] [facility] [address] [place], [place] [id number] Referring Family Practice 11/29/19 Sanjana Tarango MD [address] [facility] [address] [place] [address] Consulting Infectious Diseases 11/29/19 Salon Coordinator Relationship Specialty Start Date End Date Moreno Oates MD [address] [place] [address] PCP - General Family Practice 02/13/16 Lamonte Weber [address] [place] [id number] 11/17/06 Moreno Oates MD [address] [facility] [address] [place], [place] [id number] Home Care Physician Family Practice 11/29/19 Moreno Oates MD [address] [facility] [address] [place], [place] [id number] Referring Family Practice 11/29/19 Sanjana Tarango MD [address] [place] [address] Consulting Infectious Diseases 11/29/19 Salon Coordinator Relationship Specialty Start Date End Date Moreno Oates MD [address] [place] [address] PCP - General Family Practice 02/13/16 Lamonte Weber [address] [place] [address] 11/17/06 Moreno Oates MD [address] [facility] [place] [address] Home Care Physician Family Practice 11/29/19 Moreno Oates MD [address] [facility] [address] [place], [place] [id number] Referring Family Practice 11/29/19 Sanjana Tarango MD [address] [facility] 207 [place] [address] Consulting Infectious Diseases 11/29/19 Salon Coordinator Relationship Specialty Start Date End Date Moreno Oates MD [address] [place] [address] PCP - General Family Practice 02/13/16 Lamonte Weber [address] [place] [address] 11/17/06 Moreno Oates MD 1 [facility] [address] [place], [place] [id number] Home Care Physician Family Practice 11/29/19 Moreno Oates MD [address] [facility] [address] [place], [place] [id number] Referring Family Practice 11/29/19 Sanjana Tarango MD [address] [place] [address] Consulting Infectious Diseases 11/29/19 Salon Coordinator Relationship Specialty Start Date End Date Moreno Oates MD [address] [place] [address] PCP - General Family Practice 02/13/16 Lamonte Weber [address] [place] [address] 11/17/06 Moreno Oates MD 1 [facility] [place] [address] Home Care Physician Family Practice 11/29/19 Moreno Oates MD [address] [facility] [address] [place], [place] [id number] Referring Family Practice 11/29/19 Sanjana Tarango MD [address] [facility] [address] [place] [address] Consulting Infectious Diseases 11/29/19 Salon Coordinator Relationship Specialty Start Date End Date Moreno Oates MD [address] [place] [address] PCP - General Family Practice 02/13/16 Lamonte Weber [address] [place] [address] 11/17/06 Moreno Oates MD 1 [facility] [address] [place], [place] [id number] Home Care Physician Family Practice 11/29/19 Moreno Oates MD [address] [facility] [address] [place], [place] [phone] Referring Family Practice 11/29/19 Sanjana Tarango MD [address] [place] [address] Consulting Infectious Diseases 11/29/19 Salon Coordinator Relationship Specialty Start Date End Date Moreno Oates MD [address] [place] [address] PCP - General Family Practice 02/13/16 Lamonte Weber [address] [place] [address] 11/17/06 Moreno Oates MD 1 [facility] [place] [address] Home Care Physician Family Practice 11/29/19 Moreno Oates MD [address] [facility] [place] [address] Referring Family Practice 11/29/19 Sanjana Tarango MD [address] [facility] [place] [address] Consulting Infectious Diseases 11/29/19 Salon Coordinator Relationship Specialty Start Date End Date Moreno Oates MD [address] [place] [address] PCP - General Family Practice 02/13/16 Lamonte Weber [address] [place] [address] 11/17/06 Moreno Oates MD 1 [facility] [address] [place], [place] [id number] Home Care Physician Family Practice 11/29/19 Moreno Oates MD [address] [facility] [address] [place], [place] 743101 Referring Family Practice 11/29/19 Sanjana Tarango MD [address] [facility] [address] [place] [address] Consulting Infectious Diseases 11/29/19 Salon Coordinator Relationship Specialty Start Date End Date Moreno Oates MD [address] [place] [address] PCP - General Family Practice 02/13/16 Lamonte Weber [address] [place] [address] 11/17/06 Moreno Oates MD 1 [facility] [place] [address] Home Care Physician Family Practice 11/29/19 Moreno Oates MD [address] [facility] [place] [address] Referring Family Practice 11/29/19 Sanjana Tarango MD [address] [facility] [address] MER[facility]ER [address] [place] [address] Consulting Infectious Diseases 11/29/19 Salon Coordinator Relationship Specialty Start Date End Date Moreno Oates MD [address] [place] [address] PCP - General Family Practice 02/13/16 Lamonte Weber [address] [place] [address] 11/17/06 Moreno Oates MD [address] [facility] [address] [place], [place] [id number] Home Care Provider Family Practice 11/29/19 Moreno Oates MD [address] [facility] [address] [place], [place] [phone] Referring Family Practice 11/29/19 Sanjana Tarango MD [address] [facility] [address] MER[facility]ER [address] [place] [address] Consulting Infectious Diseases 11/29/19 Salon Coordinator Relationship Specialty Start Date End Date Moreno Oates MD [address] [place] [address] PCP - General Family Practice 02/13/16 Lamonte Weber [address] [place] [address] 11/17/06 Moreno Oates MD 1 [facility] [place] [address] Home Care Provider Family Practice 11/29/19 Moreno Oates MD [address] [facility] [address] [place], [place] [id number] Referring Family Practice 11/29/19 Sanjana Tarango MD [address] [facility] [address] MER[facility]ER [address] [place] [address] Consulting Infectious Diseases 11/29/19 Salon Coordinator Relationship Specialty Start Date End Date Moreno Oates MD [address] [place] [address] PCP - General Family Medicine 02/13/16 Lamonte Weber [address] [place] [address] 55248 11/17/06 Moreno Oates MD [address] [facility] [address] [place], [place] 263981 Home Care Provider Family Medicine 11/29/19 Moreno Oates MD [address] [facility] [address] [place], [place] [id number] Referring Family Medicine 11/29/19 Sanjana Tarango MD [address] [facility] [address] MER[facility]ER [address] [place] [address] Consulting Infectious Diseases 11/29/19 Salon Coordinator Relationship Specialty Start Date End Date Moreno Oates MD [address] [place] [address] PCP - General Family Medicine 02/13/16 Lamonte Weber [address] [place] [address] 9[address] 11/17/06 Moreno Oates MD 1 [facility] [place] [address] Home Care Provider Family Medicine 11/29/19 Moreno Oates MD 1 [facility] [place] [address] Referring Family Medicine 11/29/19 Sanjana Tarango MD [address] [facility] [address] MER[facility]ER [address] [place] [address] Consulting Infectious Diseases 11/29/19 Salon Coordinator Relationship Specialty Start Date End Date Moreno Oates MD [address] [place] [address] PCP - General Family Medicine 02/13/16 Lamonte Weber [address] [place] [address] 10997 11/17/06 Moreno Oates MD 1 [facility] [place] [address] Home Care Provider Family Medicine 11/29/19 Moreno Oates MD [address] [facility] [address] [place], [place] [id number] Referring Family Medicine 11/29/19 Sanjana Tarango MD [address] [facility] [address] MER[facility]ER [address] [place] [address] Consulting Infectious Diseases 11/29/19 Salon Coordinator Relationship Specialty Start Date End Date Moreno Oates MD [address] [place] [address] PCP - General Family Medicine 02/13/16 Lamonte Weber [address] [place] [address] 29946 11/17/06 Moreno Oates MD 1 [facility] [place] [address] Home Care Provider Family Medicine 11/29/19 Moreno Oates MD [address] [facility] [address] [place], [place] [id number] Referring Family Medicine 11/29/19 Sanjana Tarango MD [address] [facility] [address] [place] [address] Consulting Infectious Diseases 11/29/19 Salon Coordinator Relationship Specialty Start Date End Date Moreno Oates MD [address] [place] [address] PCP - General Family Medicine 02/13/16 Lamonte Weber [address] [place] [address] 32164 11/17/06 Moreno Oates MD 1 [facility] [address] [place] [id number] Home Care Provider Family Medicine 11/29/19 Moreno Oates MD 1 [facility] [address] [place] [phone] Referring Family Medicine 11/29/19 Sanjana Tarango MD [address] [facility] [address] MER[facility]ER [address] [place] [address] Consulting Infectious Diseases 11/29/19 Salon Coordinator Relationship Specialty Start Date End Date Moreno Oates MD [address] [place] [address] PCP - General Family Medicine 02/13/16 Lamonte Weber [address] [place] [address] 35672 11/17/06 Moreno Oates MD 1 [facility] [place] [address] Home Care Provider Family Medicine 11/29/19 Moreno Oates MD 1 [facility] [address] [place], [place] [phone] Referring Family Medicine 11/29/19 Sanjana Tarango MD [address] [facility] [address] MER[facility]ER [address] [place] [address] Consulting Infectious Diseases 11/29/19 Salon Coordinator Relationship Specialty Start Date End Date Moreno Oates MD [address] [place] [address] PCP - General Family Medicine 02/13/16 Lamonte Weber [address] [place] [address] 35014 11/17/06 Moreno Oates MD [address] [facility] [address] [place], [place] [id number] Home Care Provider Family Medicine 11/29/19 Moreno Oates MD 1 [facility] [address] [place] [phone] Referring Family Medicine 11/29/19 Sanjana Tarango MD [address] [facility] [address] MER[facility]ER [address] [place] [address] Consulting Infectious Diseases 11/29/19 Salon Coordinator Relationship Specialty Start Date End Date Moreno Oates MD [address] [place] [address] PCP - General Family Medicine 02/13/16 Lamonte Weber [address] [place] [address] 59773 11/17/06 Moreno Oates MD 1 [facility] [place] [address] Home Care Provider Family Medicine 11/29/19 Moreno Oates MD 1 [facility] [address] [place] [phone] Referring Family Medicine 11/29/19 Sanjana Tarango MD [address] [facility] [address] MER[facility]ER [address] [place] [address] Consulting Infectious Diseases 11/29/19 Salon Coordinator Relationship Specialty Start Date End Date Moreno Oates MD [address] [place] [address] PCP - General Family Medicine 02/13/16 Lamonte Weber [address] [place] [address] 98938 11/17/06 Moreno Oates MD 1 [facility] [address] [place] [phone] Home Care Provider Family Medicine 11/29/19 Moreno Oates MD 1 [facility] [address] [place] [phone] Referring Family Medicine 11/29/19 Sanjana Tarango MD [address] [facility] [address] MER[address]ER [address] [place] [address] 29936 Consulting Infectious Diseases 11/29/19 Salon Coordinator Relationship Specialty Start Date End Date Moreno Oates MD [address] [place] [address] PCP - General Family Medicine 02/13/16 Lamonte Weber [address] [place] [address] 61728 11/17/06 Moreno Oates MD 1 [facility] [place] [address] Home Care Provider Family Medicine 11/29/19 Moreno Oates MD 1 [facility] [place] [address] Referring Family Medicine 11/29/19 Sanjana Tarango MD [address] [facility] [address] MER[address]ER [address] [place] [address] 16700 Consulting Infectious Diseases 11/29/19 Salon Coordinator Relationship Specialty Start Date End Date Moreno Oates MD [address] [place] [address] PCP - General Family Medicine 02/13/16 Lamonte Weber [address] [place] [address] 20132 11/17/06 Moreno Oates MD 1 [facility] [place] [address] Home Care Provider Family Medicine 11/29/19 Moreno Oates MD 1 [facility] [address] [place] [phone] Referring Family Medicine 11/29/19 Sanjana Tarango MD [address] [facility] [address] MER[address]ER [address] [place] [address]01 Consulting Infectious Diseases 11/29/19 Salon Coordinator Relationship Specialty Start Date End Date Moreno Oates MD [address] [place] [address] PCP - General Family Medicine 02/13/16 Lamonte Weber [address] [place] [address] 11/17/06 Moreno Oates MD 1 [facility] [place] [address] Home Care Provider Family Medicine 11/29/19 Moreno Oates MD 1 [facility] [address] [place], [place] 47078281 Referring Family Medicine 11/29/19 Sanjana Tarango MD [address] [facility] [address] MERCER [address] [place] [address] 65809 Consulting Infectious Diseases 11/29/19 Salon Coordinator Relationship Specialty Start Date End Date Moreno Oates MD [address] [place] [address] PCP - General Family Medicine 02/13/16 Lamonte Weber [address] [place] [address] 11/17/06 Moreno Oates MD [address] [facility] [address] [place], [place] 92[address] Home Care Provider Family Medicine 11/29/19 Moreno Oates MD [address] [facility] [address] [place], [place] [phone] Referring Family Medicine 11/29/19 Sanjana Tarango MD [address] [facility] [address] MERCER [address] [place] [address]01 Consulting Infectious Diseases 11/29/19 Team Status: Inactive Member Role Status Dates Ender Oates MD Attending Provider Active Team Status: Inactive Member Role Status Dates Ender Oates MD Attending Provider, Referring Prov ider Active Team Status: Inactive Member Role Status Dates Chet Angel Attending Provider Active Salon Coordinator Relationship Specialty Start Date End Date Moreno Oates MD [address] [place] [address] PCP - General Family Medicine 02/13/16 Lamonte Weber [address] [place], [place] [id number] 11/17/06 Moreno Oates MD [address] [place] [address] [place] 377101 Home Care Provider Family Medicine 11/29/19 Moreno Oates MD [address] [place] [address] [place], [place] 645151 Referring Family Medicine 11/29/19 Sanjana Tarango MD [address] [place] [address] DR MERCER [address] [place] [address] Consulting Infectious Diseases 11/29/19 Salon Coordinator Relationship Specialty Start Date End Date Moreno Oates MD [address] [place] [address] PCP - General Family Medicine 02/13/16 Lamonte Weber [address] [place] [address] 11/17/06 Moreno Oates MD [address] [place] [address] [place] [address] Home Care Provider Family Medicine 11/29/19 Moreno Oates MD [address] [place] [address] [place] [address] Referring Family Medicine 11/29/19 Sanjana Tarango MD [address] [facility] [address] MER[address]ER [address] [place] [address] 30037 Consulting Infectious Diseases 11/29/19 Salon Coordinator Relationship Specialty Start Date End Date Moreno Oates MD [address] [place], [place] 820621 PCP - General Family Medicine 02/13/16 Lamonte Weber [address] [place] [address] 11/17/06 Moreno Oates MD [address] [place] [address] [address] [place], [place] 106691 Home Care Provider Family Medicine 11/29/19 Moreno Oates MD [address] [place] [address] [address] [place], [place] [phone] Referring Family Medicine 11/29/19 [place] [address] [place] [address] DR MER[address]ER [address] [place] [address] 63075 Consulting Infectious Diseases 11/29/19 Salon Coordinator Relationship Specialty Start Date End Date Moreno Oates MD [address] [place] [address] PCP - General Family Medicine 02/13/16 Lamonte Weber [address] [place] [address] 11/17/06 Moreno Oates MD [address] [place] [address] [address] [place], [place] 912708 [phone] Home Care Provider Family Medicine 11/29/19 Moreno Oates MD [address] [place] [address] [place] [address] Referring Family Medicine 11/29/19 Sanjana Tarango MD 360[facility] [facility] [address] MER[address]ER [address] [place] [address] 46436 Consulting Infectious Diseases 11/29/19 Salon Coordinator Relationship Specialty Start Date End Date Moreno Oates MD [address] [place], [place] 498781 PCP - General Family Medicine 02/13/16 Lamonte Weber [address] [place] [address] 11/17/06 Moreno Oates MD [address] [place] [address] [address] [place], [place] 423861 Home Care Provider Family Medicine 11/29/19 Moreno Oates MD [address] [place] [address] [place] [address] Referring Family Medicine 11/29/19 Sanjana Tarango MD [address] [place] [address] [address] MER[address] [place] [address] 71084 Consulting Infectious Diseases 11/29/19 Salon Coordinator Relationship Specialty Start Date End Date Moreno Oates MD [address] [place] [address] PCP - General Family Medicine 02/13/16 Lamonte Weber [address] [place] [address] 11/17/06 Moreno Oates MD [address] [place] [address] [place] [address] Home Care Provider Family Medicine 11/29/19 Moreno Oates MD [address] [place] [address] [place] [address] Referring Family Medicine 11/29/19 Sanjana Tarango MD [facility] [address] MER[address]ER [address] [place] [address] [id number] Consulting Infectious Diseases 11/29/19 Salon Coordinator Relationship Specialty Start Date End Date Moreno aOtes MD [address] [place], [place] 050031 PCP - General Family Medicine 02/13/16 Lamonte Weber [address] [place] [address] 11/17/06 Moreno Oates MD [address] [place] [address] [address] [place], [place] 879731 Home Care Provider Family Medicine 11/29/19 Moreno Oates MD [address] [place] [address] [place] [address] Referring Family Medicine 11/29/19 Sanjana Tarango MD [address] [address] Consulting Infectious Diseases 11/29/19 Salon Coordinator Relationship Specialty Start Date End Date Moreno Oates 1 [place], [place] 219231 PCP - General 02/14/16 Salon Coordinator Relationship Specialty Start Date End Date Moreno Oates MD [address] [place], [place] [id number] PCP - General Family Medicine 02/13/16 Lamonte Weber [address] [place], [place] 11573270 11/17/06 Moreno Oates MD [address] [place] [address] [place] [address] Home Care Provider Family Medicine 11/29/19 Moreno Oates MD [address] [place] [address] [address] [place] 259461 Referring Family Medicine 11/29/19 Sanjana Tarango MD [address] [facility] [address] MER[address]ER [address] [place] [address] [phone] Consulting Infectious Diseases 11/29/19 Salon Coordinator Relationship Specialty Start Date End Date Moreno Oates MD [address] [place] [address] PCP - General Family Medicine 02/13/16 Lamonte Weber [address] [facility], [place] [id number] 11/17/06 Moreno Oates MD 1 [facility] [place] [address] Home Care Provider Family Medicine 11/29/19 Moreno Oates MD 1 [facility] [place] [address] Referring Family Medicine 11/29/19 Sanjana Tarango MD [address] [facility] [address] [place] [address] 44122 Consulting Infectious Diseases 11/29/19 Salon Coordinator Relationship Specialty Start Date End Date Moreno Oates MD [address] [place] 234481 PCP - General Family Medicine 02/13/16 Lamonte Weber [address] [facility], [place] [id number] 11/17/06 Moreno Oates MD 1 [facility] [address] [place], [place] 018221 Home Care Provider Family Medicine 11/29/19 Moreno Oates MD 1 [facility] [place] [address] Referring Family Medicine 11/29/19 Sanjana Tarango MD [address] [facility] [address] [place] [address] 64823 Consulting Infectious Diseases 11/29/19 Salon Coordinator Relationship Specialty Start Date End Date Moreno Oates MD [address] [place] [address] PCP - General Family Medicine 02/13/16 Lamonte Weber [address] [place] [address] [id number] 11/17/06 Moreno Oates MD [address] [place] [address] [address] [place], [place] 126221 Home Care Provider Family Medicine 11/29/19 Moreno Oates MD 1 [facility] [place] [address] Referring Family Medicine 11/29/19 Sanjana Tarango MD [address] [facility] [address] [place] [address] 27384 Consulting Infectious Diseases 11/29/19 Salon Coordinator Relationship Specialty Start Date End Date Moreno Oates MD [address] [place], [place] 829961 PCP - General Family Medicine 02/13/16 Lamonte Weber [address] [place] [address] 11/17/06 Moreno Oates MD 1 [facility] [place] [address] Home Care Provider Family Medicine 11/29/19 Moreno Oates MD 1 [facility] [place] [address] Referring Family Medicine 11/29/19 [place] [address] [place] [address] DR MER[address] [place] [address] 10984 Consulting Infectious Diseases 11/29/19 Salon Coordinator Relationship Specialty Start Date End Date Moreno Oates MD [address] [place] [address] 24897 PCP - General Family Medicine 02/13/16 Lamonte Weber [address] [place] [address] 11/17/06 Moreno Oates MD 1 [facility] [place] [address] Home Care Provider Family Medicine 11/29/19 Moreno Oates MD 1 [facility] [address] [place], [place] 163091 Referring Family Medicine 11/29/19 Sanjana Tarango MD [address] [facility] [place] MER[address]ER [address] [place] [address] 23688 Consulting Infectious Diseases 11/29/19 Salon Coordinator Relationship Specialty Start Date End Date Moreno Oates MD [address] [place] [address] PCP - General Family Medicine 02/13/16 Lamonte Weber [address] [place] [address] 11/17/06 Moreno Oates MD 1 [facility] [address] [place] 04[address] Home Care Provider Family Medicine 11/29/19 Moreno Oates MD 1 [facility] [address] [place], [place] 924911 Referring Family Medicine 11/29/19 Sanjana Tarango MD 3609 [facility] [address] [address] Consulting Infectious Diseases 11/29/19 Salon Coordinator Relationship Specialty Start Date End Date Moreno Oates MD [address] [place] [address] PCP - General Family Medicine 02/13/16 Lamonte Weber [address] [place] [address] 11/17/06 Moreno Oates MD 1 [facility] [address] [place], [place] 710371 Home Care Provider Family Medicine 11/29/19 Moreno Oates MD 1 [facility] [address] [place], [place] 750431 Referring Family Medicine 11/29/19 Sanjana Tarango MD [address] [facility] [address] MER[address]ER [address] [place] [address] 38323 Consulting Infectious Diseases 11/29/19 Salon Coordinator Relationship Specialty Start Date End Date Moreno Oates MD [address] [place] [address] PCP - General Family Medicine 02/13/16 Lamonte Weber [address] [place], [place] [id number] 11/17/06 Moreno Oates MD 1 [facility] [address] [place], [place] 058301 Home Care Provider Family Medicine 11/29/19 Moreno Oates MD 1 [facility] [address] [place], [place] 202621 Referring Family Medicine 11/29/19 Sanjana Tarango MD [address] [facility] [address] [place] [address] 32226 Consulting Infectious Diseases 11/29/19 Salon Coordinator Relationship Specialty Start Date End Date Moreno Oates MD [address] [place] [address] PCP - General Family Medicine 02/13/16 Lamonte Weber [address] [place], [place] [id number] 11/17/06 Moreno Oates MD 1 [facility] [place] [address] Home Care Provider Family Medicine 11/29/19 Moreno Oates MD 1 [facility] [place] [address] Referring Family Medicine 11/29/19 Sanjana Tarango MD [address] [facility] [address] MER[address]ER [address] [place] [address] 42383 Consulting Infectious Diseases 11/29/19 Salon Coordinator Relationship Specialty Start Date End Date Moreno Oates MD [address] [place] [address] PCP - General Family Medicine 02/13/16 Lamonte Weber [address] [place], [place] [id number] 11/17/06 Moreno Oates MD 1 [facility] [place] [address] Home Care Provider Family Medicine 11/29/19 Moreno Oates MD 1 [facility] [place] [address] Referring Family Medicine 11/29/19 Sanjana Tarango MD [address] [facility] [address] [place] [address] 62059 Consulting Infectious Diseases 11/29/19 Salon Coordinator Relationship Specialty Start Date End Date Moreno Oates MD [address] [place] [address] PCP - General Family Medicine 02/13/16 Lamonte Weber [address] [place] [address] 11/17/06 Moreno Oates MD 1 [facility] [place] [address] Home Care Provider Family Medicine 11/29/19 Moreno Oates MD 1 [facility] [place] [address] Referring Family Medicine 11/29/19 Sanjana Tarango MD [address] [facility] [address] MER[address]ER [address] [place] [address] 47826 Consulting Infectious Diseases 11/29/19 Salon Coordinator Relationship Specialty Start Date End Date Moreno Oates MD [address] [place] [address] 10272 PCP - General Family Medicine 02/13/16 Lamonte Weber [address] [place] [address] 11/17/06 Moreno Oates MD 1 [facility] [place] [address] Home Care Provider Family Medicine 11/29/19 Moreno Oates MD 1 [facility] [address] [place], [place] 081931 Referring Family Medicine 11/29/19 Sanjana Tarango MD [address] [facility] [place] [address] Consulting Infectious Diseases 11/29/19 Salon Coordinator Relationship Specialty Start Date End Date Moreno Oates MD [address] [place] [address] PCP - General Family Medicine 02/13/16 Lamonte Weber [address] [place] [address] 11/17/06 Moreno Oates MD [address] [facility] [address] [place], [place] [address] Home Care Provider Family Medicine 11/29/19 Moreno Oates MD 1 [facility] [address] [place], [place] [address] Referring Family Medicine 11/29/19 Sanjana Tarango MD [address] [address] Consulting Infectious Diseases 11/29/19 Salon Coordinator Relationship Specialty Start Date End Date Moreno Oates MD [address] [place] [address] PCP - General Family Medicine 02/13/16 Lamonte Weber [address] [place] [address] 11/17/06 Moreno Oates MD 1 [facility] [address] [place], [place] [address] Home Care Provider Family Medicine 11/29/19 Moreno Oates MD [address] [facility] [address] [place], [place] [address] Referring Family Medicine 11/29/19 Sanjana Tarango MD [address] [facility] [address] [address] Consulting Infectious Diseases 11/29/19 Salon Coordinator Relationship Specialty Start Date End Date Moreno Oates MD [address] [place] [address] PCP - General Family Medicine 02/13/16 Lamonte Weber [address] [place], [place] [id number] 11/17/06 Moreno Oates MD 1 [facility] [place] [address] Home Care Provider Family Medicine 11/29/19 Moreno Oates MD 1 [facility] [place] [address] Referring Family Medicine 11/29/19 Sanjana Tarango MD [address] [facility] [address] [facility] [place] [address] Consulting Infectious Diseases 11/29/19 Salon Coordinator Relationship Specialty Start Date End Date Moreno Oates MD [address] [place] [address] PCP - General Family Medicine 02/13/16 Lamonte Weber [address] [place], [place] [id number] 11/17/06 Moreno Oates MD [address] [facility] [address] [place], [place] [address] Home Care Provider Family Medicine 11/29/19 Moreno Oates MD [address] [facility] [address] [place], [place] [address] Referring Family Medicine 11/29/19 Sanjana Tarango MD [address] [facility] [address] [place] [address] Consulting Infectious Diseases 11/29/19 Salon Coordinator Relationship Specialty Start Date End Date Moreno Oates MD [address] [place] [address] PCP - General Family Medicine 02/13/16 Lamonte Weber [address] [place] [facility] [address] 11/17/06 Moreno Oates MD 1 [facility] [place] [address] Home Care Provider Family Medicine 11/29/19 Moreno Oates MD 1 [facility] [place] [address] Referring Family Medicine 11/29/19 Sanjana Tarango MD [address] [facility] [address] [place] [address] Consulting Infectious Diseases 11/29/19 Salon Coordinator Relationship Specialty Start Date End Date Moreno Oates MD [address] [place] [address] PCP - General Family Medicine 02/13/16 Lamonte Weber [address] [place] [facility] [place] [address] 11/17/06 Moreno Oates MD [address] [facility] [address] [place], [place] [address] Home Care Provider Family Medicine 11/29/19 Moreno Oates MD 1 [facility] [place] [address] Referring Family Medicine 11/29/19 Sanjana Tarango MD [address] [facility] [address] [place] [address] Consulting Infectious Diseases 11/29/19 Salon Coordinator Relationship Specialty Start Date End Date Moreno Oates MD [address] [place], [place] [address]81 PCP - General Family Medicine 02/13/16 Lamonte Weber [address] [place], [place] [address] [id number] 11/17/06 Moreno Oates MD [address] [facility] [address] [place], [place] [phone] Home Care Provider Family Medicine 11/29/19 Moreno Oates MD [address] [facility] [address] [place], [place] [address] Referring Family Medicine 11/29/19 Sanjana Tarango MD [address] [facility] [address] [place] [address] [id number] Consulting Infectious Diseases 11/29/19 Salon Coordinator Relationship Specialty Start Date End Date Moreno Oates MD [address] [place] [address] PCP - General Family Medicine 02/13/16 Lamonte Weber [address] [place] [address] 11/17/06 Moreno Oates MD 1 [facility] [place] [address] Home Care Provider Family Medicine 11/29/19 Moreno Oates MD [address] [facility] [address] [place], [place] [address] Referring Family Medicine 11/29/19 [place] [address] [place] [address] Consulting Infectious Diseases 11/29/19 Salon Coordinator Relationship Specialty Start Date End Date Moreno Oates MD [address] [place] [address] PCP - General Family Medicine 02/13/16 Lamonte Weber [address] [place] [address] 11/17/06 Moreno Oates MD 1 [facility] [address] [place], [place] 6[address] Home Care Provider Family Medicine 11/29/19 Moreno Oates MD [address] [facility] [address] [place], [place] 67[address] Referring Family Medicine 11/29/19 Sanjana Tarango MD [address] [facility] [address] [place] [address] Consulting Infectious Diseases 11/29/19 Salon Coordinator Relationship Specialty Start Date End Date Moreno Oates MD [address] [place] [address] PCP - General Family Medicine 02/13/16 Lamonte Weber [address] [place] [address] 11/17/06 Moreno Oates MD 1 [facility] [place] [address] Home Care Provider Family Medicine 11/29/19 Moreno Oates MD 1 [facility] [place] [address] Referring Family Medicine 11/29/19 Sanjana Tarango MD [address] [facility] [address] [place] [address] Consulting Infectious Diseases 11/29/19 Salon Coordinator Relationship Specialty Start Date End Date Moreno Oates MD [address] [place] [address] PCP - General Family Medicine 02/13/16 Lamonte Weber [address] [place], [place] [id number] 11/17/06 Moreno Oates MD [address] [facility] [address] [place], [place] [address]39[address] Home Care Provider Family Medicine 11/29/19 Moreno Oates MD [address] [facility] [address] [place], [place] [address]281 Referring Family Medicine 11/29/19 Sanjana Tarango MD [address] [facility] [place] [facility] [address] [place] [address] Consulting Infectious Diseases 11/29/19 Salon Coordinator Relationship Specialty Start Date End Date Moreno Oates MD [address] [place], [place] 426831 PCP - General Family Medicine 02/13/16 Lamonte Weber [address] [place] [id number] 11/17/06 Moreno Oates MD [address] [facility] [address] [place], [place] 7711[address] Home Care Provider Family Medicine 11/29/19 Moreno Oates MD 1 [facility] [place] [address] Referring Family Medicine 11/29/19 Sanjana Tarango MD [address] [place] [facility] [address] [place] [address] Consulting Infectious Diseases 11/29/19 Carlos Mei APRN.SECRETARY TO THE VICE PRESIDENT [address] [facility] [address] [place] [id number] Prop Sawyer Internal Medicine 05/08/24 Salon Coordinator Relationship Specialty Start Date End Date Moreno Oates MD [address] [place], [place] [id number] PCP - General Family Medicine 02/13/16 Lamonte Weber [address] [facility], [place] [id number] 11/17/06 Moreno Oates MD [address] [facility] [address] [place], [place] 501381 Home Care Provider Family Medicine 11/29/19 Moreno Oates MD 1 [facility] [address] [place], [place] 627841 Referring Family Medicine 11/29/19 Sanjana Tarango MD [address] [facility] [address] [phone] Consulting Infectious Diseases 11/29/19 Carlos Mei APRN.SECRETARY TO THE VICE PRESIDENT [address] [facility] [address] [place], [place] 904351 Prop Sawyer Internal Medicine 05/08/24 Salon Coordinator Relationship Specialty Start Date End Date Moreno Oates MD [address] [place], [place] 599831 PCP - General Family Medicine 02/13/16 Lamonte Weber [address] [place] [facility] [address] 11/17/06 Moreno Oates MD [address] [facility] [place] [address] Home Care Provider Family Medicine 11/29/19 Moreno Oates MD [address] [facility] [address] [place], [place] 9[address]841 Referring Family Medicine 11/29/19 Sanjana Tarango MD [address] [facility] [place] [address] Consulting Infectious Diseases 11/29/19 Carlos Mei APRN.SECRETARY TO THE VICE PRESIDENT 1 [facility] [address] [place], [place] [id number] Prop Sawyer Internal Medicine 05/08/24 Team Status: Inactive Member [...] August 10, 2024 End: August 10, 2024 Salon Coordinator Relationship Specialty Start Date End Date Moreno Oates MD [address] [place], [place] 321561 PCP - General Family Medicine 02/13/16 Lamonte Weber [address] [place] [address] 11/17/06 Morneo Oates MD [address] [facility] [address] [place], [place] 821141 Home Care Provider Family Medicine 11/29/19 Moreno Oates MD [address] [facility] [address] [place], [place] 380251 Referring Family Medicine 11/29/19 Sanjana Tarango MD [address] [place] [address] [place] [address] Consulting Infectious Diseases 11/29/19 Carlos Mei, DAGOBERTO.SECRETARY TO THE VICE PRESIDENT [address] [facility] [address] [place], [place] 828011 Prop Sawyer Internal Medicine 05/08/24 Salon Coordinator Relationship Specialty Start Date End Date Moreno Oates MD [address] [place], [place] 597971 PCP - General Family Medicine 02/13/16 Lamonte Weber [address] [place] [address] [id number] 11/17/06 Moreno Oates MD [address] [facility] [address] [place], [place] 856961 Home Care Provider Family Medicine 11/29/19 Moreno Oates MD 1 [facility] [address] [place], [place] [address] Referring Family Medicine 11/29/19 [place] [address] [place] [address] DR MER[address]ER [address] [place] [address] Consulting Infectious Diseases 11/29/19 Carlos Mei, MANAGER HOUSE.SECRETARY TO THE VICE PRESIDENT [address] [facility] [address] [place], [place] 318331 Prop Sawyer Internal Medicine 05/08/24 Salon Coordinator Relationship Specialty Start Date End Date Moreno Oates MD [address] [place] [place], [place] 918541 PCP - General Family Medicine 02/13/16 Lamonte Weber [address] [place], [place] [id number] 11/17/06 Moreno Oates MD [address] [facility] [address] [place], [place] [address] Home Care Provider Family Medicine 11/29/19 Moreno Oates MD [address] [facility] [address] [place], [place] 852221 Referring Family Medicine 11/29/19 Sanjana Traango MD 3609 [facility] [address] [address] Consulting Infectious Diseases 11/29/19 Carlos Mei APRN.SECRETARY TO THE VICE PRESIDENT [address] [facility] [address] [place], [place] 968381 Prop Sawyer Internal Medicine 05/08/24 Salon Coordinator Relationship Specialty Start Date End Date Moreno Oates MD [address] [place] [address] PCP - General Family Medicine 02/13/16 Lamonte Weber [address] [facility] [place] [address] 11/17/06 Moreno Oates MD [address] [facility] [address] [place], [place] 513[address] Home Care Provider Family Medicine 11/29/19 Moreno Oates MD [address] [facility] [address] [place], [place] [phone] Referring Family Medicine 11/29/19 Sanjana Tarango MD [address] [facility] [address] [place] [address] Consulting Infectious Diseases 11/29/19 Carlos Mei APRN.SECRETARY TO THE VICE PRESIDENT [address] [facility] [address] [place], [place] 287431 Prop Sawyer Internal Medicine 05/08/24 Salon Coordinator Relationship Specialty Start Date End Date Moreno Oates MD [address] [place], [place] 834191 PCP - General Family Medicine 02/13/16 Lamonte Weber [address] [place] [address] [id number] 11/17/06 Moreno Oates MD [address] [facility] [address] [place], [place] 540921 Home Care Provider Family Medicine 11/29/19 Moreno Oates MD [address] [facility] [place] [address] Referring Family Medicine 11/29/19 Sanjana Tarango MD [address] [facility] [address] [place] [address] Consulting Infectious Diseases 11/29/19 Carlos Mei APRN.SECRETARY TO THE VICE PRESIDENT 1 [facility] [address] [place], [place] [id number] Prop Sawyer Internal Medicine 05/08/24 Salon Coordinator Relationship Specialty Start Date End Date Moreno Oates MD [address] [place], [place] 161571 PCP - General Family Medicine 02/13/16 Lamonte Weber [address] [place] [address] [facility]min [facility] [place] [id number] 11/17/06 Moreno Oates MD [address] [facility] [address] [place], [place] [phone] Home Care Provider Family Medicine 11/29/19 Moreno Oates MD [address] [facility] [address] [place], [place] [id number] Referring Family Medicine 11/29/19 Sanjana Tarango MD [address] [facility] [place] [address] Consulting Infectious Diseases 11/29/19 Carlos Mie APRN.CNP [address] [facility] [address] [place], [place] [phone] Prop Sawyer Internal Medicine 05/08/24 Goals (unrecognized section and [...] BE BASED ON THE PRIMARY CLINICAL RECORDS. [facility]. provides no warranty or guarantee of the accuracy or completeness of information in this document.
[2025-05-31 09:03] LABS: Hematocrit 43.4 % (37-47); Hemoglobin 14.1 g/dL (12.0-15.0); Mean Corp Hgb Conc 32.5 g/dL (32-36); Mean Corpuscular Volume 98.2 fL (81-99); Mean Platelet Vol. 10.4 fl (6.2-12.0); Platelet Count 180 K/mm3 (150-450); RBC Distribution Width CV 14.9 % (11.6-14.6); RBC Distribution Width SD 54.2 fl (35.1-43.9); Red Blood Count 4.42 M/mm3 (4.2-5.4); White Blood Count 8.3 K/mm3 (4.4-11.0)
[2025-05-31 09:11] LABS: AST(SGOT) 26 U/L (<=31); Alanine Aminotransfer ALT/SGPT 20 U/L (<=34); Albumin, Serum 3.4 g/dL (3.4-4.8); Alkaline Phosphatase 77 U/L (35-104); Anion Gap 9 (7-18); BUN 26 mg/dL (4-19); BUN/Creat Ratio 28.9 RATIO (10-20); Calcium,Total 8.5 mg/dL (7.6-11.0); Carbon Dioxide 29.2 mmol/L (20.0-29.0); Chloride 102 mmol/L (96-106); Globulin 3.6 g/dL (2.2-4.2); Glucose 102 mg/dL (70-99); Potassium 3.8 mmol/L (3.5-5.1)
== END ==
LOC: OLS.ACW300 05:00
PROVIDERS: Visit Provider Family Medicine
DX: Z79.899 Other long term (current) drug therapy (principal)
CPT/HCPCS: 36415; 80053; 85027